=== PATIENT | male | born 1995 | race Caucasian/White ===

== ENCOUNTER 2016-06-26 09:46 | Inpatient (IN) | payer OTHER ==
[2016-06-26] MEDS ORDERED: SUCCINYLCHOLINE CHLORIDE 200 MG/10 ML VIAL ONE (10:01)
[2016-06-26] MEDS ORDERED: LORAZEPAM CARPU-JECT 2 MG/ML DISP.SYRIN ONE (10:04)
[2016-06-26] MEDS ORDERED: ROCURONIUM BROMIDE 50 MG/5 ML VIAL IV ONE (10:04)
[2016-06-26] MEDS ORDERED: morphine CARPU-JECT 10 MG/1 ML DISP.SYRIN IVPUSH ONE (10:04)
[2016-06-26] MEDS ORDERED: LORAZEPAM CARPU-JECT 2 MG/ML DISP.SYRIN IVPUSH ONE (10:04)
[2016-06-26] MEDS ORDERED: SUCCINYLCHOLINE CHLORIDE 200 MG/10 ML VIAL IVPUSH ONE (10:04)
[2016-06-26] MEDS ORDERED: morphine CARPU-JECT 10 MG/1 ML DISP.SYRIN ONE (10:05)
[2016-06-26] MEDS ORDERED: RAPID SEQUENCE INTUBATION KIT NR ONE ×2 (10:05→11:05)
--- NOTE | 2016-06-26 10:24 | PDOC ---
History of Present Illness - General History Source: EMS, Prison Records Exam Limitations: Clinical Condition - History of Present Illness Initial Comments: 06/26/16 10:25 The patient is a 21 year old male with significant past medical history of herpetic encephalitis, profound mental retardation, epilepsy, chronic hypothermia, asthma who presents to the emergency department from [facility] with respiratory distress since this morning. Per EMS, upon arrival patient was sating on high 70s on room air. The patient started to bag him en route to [facility]. Per EMS the patient also had a partial witnessed seizure in the ambulance. The history is limited secondary to patients condition. <Jolanta Gonzalez - Last Filed: 06/26/16 12:51> <Vitaly Mathis - Last Filed: 07/29/16 10:06> - General Stated Complaint: Respiratory Time Seen by Provider: 06/26/16 10:04 Past History <Jolanta Gonzalez - Last Filed: 06/26/16 12:51> - Past Medical History Asthma: Yes GI Disorders: Yes (; DYSPHAGIA) Seizures: Yes (EPILEPSY) - Surgical History Abdominal Surgery: Yes (GT PLACEMENT) - Psycho/Social/Smoking Cessation Hx Anxiety: No Suicidal Ideation: No Smoking Status: No Smoking History: Never smoked Number of Cigarettes Smoked Daily: 0 <Vitaly Mathis - Last Filed: 07/29/16 10:06> - Past Medical History Allergies/Adverse Reactions: Allergies Allergy/AdvReac Type Severity Reaction Status Date / Time No Known Allergies Allergy Verified 12/18/12 10:01 Home Medications: Ambulatory Orders Acyclovir 200 mg PO BID 06/26/16 Albuterol 0.083% Nebulizer Meron [Ventolin 0.083% Nebulizer Soln -] 1 neb NEB QID 06/26/16 Baclofen 10 mg PO BID 06/26/16 Benzoyl Peroxide 5% Gel - 1 applic TP DAILY 06/26/16 Bisacodyl [Biscolax] 10 mg RC DAILY 06/26/16 Budesonide/Formeterol Fumarate [SYMBICORT 160/4.5mcg -] 1 inh PO BID 06/26/16 Clobazam [Onfi -] 10 mg PO DAILY 06/26/16 Clonazepam [KlonoPIN] 0.5 mg GT TID 06/26/16 Diazepam [Diastat Acudial] 10 mg RC DAILY 06/26/16 Fluticasone Prop 0.05% Nasal [Flonase -] 1 - 2 spray NS DAILY 06/26/16 Fructooligosaccharides/Polydex [Fiber-Stat 15 gm/30 ml Liquid] 15 gm PO DAILY Hydrocolloid Dressing [Duoderm] 1 each TP HS PRN 06/26/16 Ipratropium/Albuterol Sulfate [Iprat-Albut 0.5-3(2.5) mg/3 ml] 3 ml IH Q6H 06/26 Lactobacillus Acidophilus [Acidophilus] 1 each PO HS 06/26/16 Magnesium Hydroxide [Milk of Magnesia] 20 ml PO DAILY 06/26/16 Multivitamin [Poly-Vitamin] 1 each GT DAILY 06/26/16 Phenobarbital 16.2 mg PO BID 06/26/16 Ranitidine HCl [Zantac 75] 75 mg PO BID 06/26/16 Review of Systems - Review of Systems Able to Perform ROS?: No (Unable to attain) <Jolanta Gonzalez - Last Filed: 06/26/16 12:51> *Physical Exam - Physical Exam Comments: 06/26/16 10:25 GENERAL: +Responsive to deep painful stimuli, gag reflex intact. Color is dusky. HEAD: No signs of trauma EYES: +Nystagmus. PERRLA, EOMI, sclera anicteric, conjunctiva clear ENT: Auricles normal inspection, hearing grossly normal, nares patent, oropharynx clear without exudates. NECK: Normal ROM, supple, no lymphadenopathy, JVD, or masses LUNGS: +Bilateral crackles. No wheezing. HEART: Regular rate and rhythm, normal S1 and S2, no murmurs, rubs or gallops ABDOMEN: Soft, nontender, normoactive bowel sounds. No masses. +PEG tube in place, no surrounding erythema. EXTREMITIES: +All extremities are contracted. Patient in position. No edema. No clubbing or cyanosis. No cords or erythema. NEUROLOGICAL: Unable to attain. SKIN: Warm, Dry, normal turgor, no rashes or lesions noted. <Jolanta Gonzalez - Last Filed: 06/26/16 12:51> Procedures - Intubation Time of Intubation: 10:00 Intubation Method: orotracheal Blade used: Mac Tube Size (Fr): 6.5 Medications: Morphine, Rocuronium, Succinylcholine Tube position @ lip (cm): 22 Tube position confirmed by: Direct visualization, Chest x-ray, Breath sounds Breath Sounds after Intubation: equal Intubation Complications: no complications Post Intubation Xray: Yes <Jolanta Gonzalez - Last Filed: 06/26/16 12:51> ED Treatment Course - LABORATORY CBC & Chemistry Diagram: 06/26/16 10:13 06/26/16 10:13 <Jolanta Gonzalez - Last Filed: 06/26/16 12:51> - LABORATORY CBC & Chemistry Diagram: 07/08/16 06:45 07/07/16 05:00 - RADIOLOGY Radiology Studies Ordered: Category Date Time Status CHEST X-RAY PORTABLE* [RAD] Stat Radiology 06/26/16 10:11 Taken <Vitaly Mathis - Last Filed: 07/29/16 10:06> Medical Decision Making - Critical Care Time Total Critical Care Time (minutes): 0 - Medical Decision Making 06/26/16 11:09 21 yo M with severe MR from [place] presented to the ED in respiratory distress. Patient seen and examined on arrival. He was sating in mid 80s on o2 bag. Patient required intubation. Case discussed with hospitalists for admission. Awaiting call back from ICU for a bed in the ICU. 06/26/16 12:51 market analysis director at [facility] called ER. She states that the doctors at [facility] know patient well. Once he is stable he will go to [facility]. <Jolanta Gonzalez - Last Filed: 06/26/16 12:51> *DC/Admit/Observation/Transfer - Attestations Scribe Attestion: 06/26/16 10:27 Documentation prepared by Jolanta Gonzalez, acting as medical transcriptionist for Vitaly Mathis DO. <Jolanta Gonzalez - Last Filed: 06/26/16 12:51> - Attestations Physician Attestion: 06/26/16 10:24 I, Dr. Vitaly Mathis, attest that this document has been prepared under my direction and personally reviewed by me in its entirety. I further attest, that it accurately reflects all work, treatment, procedures and medical decision -making performed by me. <Vitaly Mathis - Last Filed: 07/29/16 10:06> Diagnosis at time of Disposition: Respiratory failure Qualifiers: Chronicity: acute Respiratory failure complication: hypoxia Qualified Code(s): J96.01 - Acute respiratory failure with hypoxia - Discharge Dispostion Disposition: HOME Condition at time of disposition: Stable
[2016-06-26 10:30] LABS: BASOPHIL 0.2 % (0-2.0); EOSINOPHIL 1.5 % (0-4.5); MCHC 33.4 g/dl (32.0-35.9); MEAN CELL VOLUME 104.8 fl (80-96); MEAN PLT VOLUME 10.6 fl (7.5-11.1); NEUTROPHILS 65.5 % (42.8-82.8); PLATELET COUNT 202 K/MM3 (134-434); RDW 16.4 % (11.9-15.9); WHITE BLOOD COUNT 11.3 K/mm3 (4.0-10.0)
[2016-06-26 10:53] LABS: ALBUMIN 4.2 g/dl (3.4-5.0); ANION GAP 10 (8-16); BILIRUBIN,TOTAL 0.2 mg/dL (0.2-1.0); CALCIUM 9.8 mg/dL (8.5-10.1); CO2 28 mmol/L (21-32); CREATININE 0.9 mg/dL (0.7-1.3); GLUCOSE,RANDOM 64 mg/dL (74-106); SGOT/AST 98 U/L (15-37); SGPT/ALT 119 U/L (12-78)
[2016-06-26 10:54] LABS: ALBUMIN 4.1 g/dl (3.4-5.0); ALK PHOS 466 U/L (45-117); ANION GAP 12 (8-16); CALCIUM 9.8 mg/dL (8.5-10.1); CO2 28 mmol/L (21-32); CREATININE 0.9 mg/dL (0.7-1.3); GLUCOSE,RANDOM 64 mg/dL (74-106); SGOT/AST 96 U/L (15-37); SGPT/ALT 116 U/L (12-78)
[2016-06-26 10:55] VITALS: BMI 16.3
[2016-06-26 10:55] LABS: ALK PHOS 470 U/L (45-117); BILIRUBIN,TOTAL 0.3 mg/dL (0.2-1.0); TOT PROT 10.8 g/dl (6.4-8.2)
[2016-06-26 10:56] LABS: TOT PROT 10.9 g/dl (6.4-8.2)
[2016-06-26 11:01] LABS: INR 1.14 (0.82-1.09); PROTHROMBIN TIME (PATIENT) 12.6 SEC (9.98-11.88)
--- NOTE | 2016-06-26 12:12 | HP ---
CHIEF COMPLAINT: Hypoxia HISTORY OF PRESENT ILLNESS: This is a 21-year-old male resident of [facility] who was brought in to the ER this morning by EMS because of respiratory distress and hypoxia. EMS found his oxygen saturation to be in the 70s. He was noted to have a partial seizure in the ambulance. He was intubated in the ER. PAST MEDICAL HISTORY Profound mental retardation Epilepsy Asthma Hypothermia Herpes encephalitis PAST SURGICAL HISTORY PEG Allergies No Known Allergies Allergy (Verified 12/18/12 10:01) HOME MEDICATIONS 3 Medication Instructions Recorded Albuterol 0.083% Nebulizer Meron 1 neb NEB QID 06/26/16 [Ventolin 0.083%] Benzoyl Peroxide 5% Gel - 1 applic TP DAILY 06/26/16 Bisacodyl [Biscolax] 10 mg RC DAILY 06/26/16 Clobazam [Onfi -] 10 mg PO DAILY 06/26/16 Clonazepam [KlonoPIN] 0.5 mg GT TID 06/26/16 Diazepam [Diastat Acudial] 10 mg RC DAILY 06/26/16 Fructooligosaccharides/Polydex 15 gm PO DAILY 06/26/16 [Fiber-Stat 15 gm/30 ml Liquid] Hydrocolloid Dressing [Duoderm] 1 each TP HS PRN 06/26/16 Ipratropium/Albuterol Sulfate 3 ml IH Q6H 06/26/16 [Iprat-Albut 0.5-3(2.5) mg/3 ml] Multivitamin [Poly-Vitamin] 1 each GT DAILY 06/26/16 Phenobarbital 16.2 mg PO BID 06/26/16 Social History: Smoking: Never smoked Alcohol: None Drugs: None Recent Travel: No Family History: Unobtainable REVIEW OF SYSTEMS Unable to obtain PHYSICAL EXAMINATION Vital Signs Period Temp Pulse Resp BP Sys/Linares Pulse Ox Last 24 Hr 94.6 F 80 28 90/67 87 GENERAL: Intubated, sedated, in no acute distress. HEAD: Normal with no signs of trauma. EYES: Pupils equal, round and reactive to light, sclerae anicteric, conjunctivae clear. EARS, NOSE, THROAT: Ears normal, nares patent, oropharynx not visualized. Moist mucous membranes. NECK: Normal range of motion, supple without lymphadenopathy, JVD, or masses. LUNGS: Decreased breath sounds. Rhonchi on right. HEART: Regular rate and rhythm, normal S1 and S2 without murmur, rub or gallop. ABDOMEN: Soft, not distended, normoactive bowel sounds. No hepatomegaly or splenomegaly. PEG in place. PEG site clean. MUSCULOSKELETAL: Unable to assess. UPPER EXTREMITIES: Contracted. 2+ pulses, warm, well-perfused. No cyanosis. No clubbing. Cap refill <2 seconds. No peripheral edema. LOWER EXTREMITIES: Contracted. 2+ pulses, warm, well-perfused. No peripheral edema. NEUROLOGICAL: Unable to assess. PSYCHIATRIC: Unable to assess. SKIN: Warm, dry, normal turgor, no rashes. Laboratory Tests 06/26/16 06/26/16 06/26/16 10:13 10:13 10:13 WBC 11.3 H RBC 4.56 Hgb 16.0 D Hct 47.8 D MCV 104.8 H MCHC 33.4 RDW 16.4 H Plt Count 202 MPV 10.6 Neutrophils % 65.5 D Lymphocytes % 27.1 D Monocytes % 5.7 Eosinophils % 1.5 Basophils % 0.2 INR 1.14 Sodium 140 Potassium 4.9 D Chloride 100 Carbon Dioxide 28 Anion Gap 12 BUN 14 D Creatinine 0.9 D Creat Clearance w eGFR > 60 Random Glucose 64 L Lactic Acid Calcium 9.8 Total Bilirubin 0.3 AST 96 H D ALT 116 H D Alkaline Phosphatase 470 H D Total Protein 10.9 H D Albumin 4.1 D 06/26/16 06/26/16 10:13 10:13 WBC RBC Hgb Hct MCV MCHC RDW Plt Count MPV Neutrophils % Lymphocytes % Monocytes % Eosinophils % Basophils % INR Sodium 139 Potassium 4.9 Chloride 101 Carbon Dioxide 28 Anion Gap 10 BUN 14 Creatinine 0.9 Creat Clearance w eGFR > 60 Random Glucose 64 L Lactic Acid 6.742 H* Calcium 9.8 Total Bilirubin 0.2 D AST 98 H ALT 119 H Alkaline Phosphatase 466 H Total Protein 10.8 H Albumin 4.2 Chest x-ray: Increased lung markings. Peribronchial thickening. EKG: Sinus bradycardia with sinus arrhythmia, rate 43. Inferior-posterior infarct. ASSESSMENT/PLAN: This is a 21-year-old man who resides at [facility] and who has a history of profound mental retardation, seizure disorder, asthma, who was sent in to the ER after being found to be hypoxic. He had a seizure in the ambulance. On arrival, he was found to have BP 90/67, temp 94.7, RR 28, O2 sat 87%, and he was intubated. He has WBC 11.3, AST 96, ALT 116, alk phos 470, lactic acid 6.742. He is being admitted for treatment of an emergent condition. 1. Acute on chronic hypoxic respiratory failure - Intubated - Admit to ICU - Maintain vent support - DuoNeb - Pulmonary/critical care consult 2. Possible severe sepsis secondary to aspiration pneumonia - Has leukocytosis, lactic acidosis, hypothermia, hypotension, hepatic dysfunction - Start Zosyn - Repeat CXR in AM 3. s/p seizure 4. Lactic acidosis - Secondary to seizure and possibly sepsis - IV fluid - Recheck lactic acid 5. Hepatic transaminitis and elevated alkaline phosphatase - Start Zosyn - [facility] 6. Epilepsy - Continue Phenobarbital, Klonopin 7. Asthma 8. Profound mental retardation 9. DVT prophylaxis - Start Lovenox 10. Stress ulcer prophylaxis - Start Protonix Problem List - Problem (1) Acute and chronic respiratory failure with hypoxia Code(s): J96.21 - ACUTE AND CHRONIC RESPIRATORY FAILURE WITH HYPOXIA (2) Elevated alkaline phosphatase level Code(s): R74.8 - ABNORMAL LEVELS OF OTHER SERUM ENZYMES (3) Hypotension Code(s): I95.9 - HYPOTENSION, UNSPECIFIED (4) Hypothermia Code(s): T68.XXXA - HYPOTHERMIA, INITIAL ENCOUNTER (5) Lactic acidosis Code(s): E87.2 - ACIDOSIS (6) Seizure Code(s): R56.9 - UNSPECIFIED CONVULSIONS (7) Transaminitis Code(s): R74.0 - NONSPEC ELEV OF LEVELS OF TRANSAMNS & LACTIC ACID DEHYDRGNSE (8) Asthma Code(s): J45.909 - UNSPECIFIED ASTHMA, UNCOMPLICATED (9) Epilepsy Code(s): G40.909 - EPILEPSY, UNSP, NOT INTRACTABLE, WITHOUT STATUS EPILEPTICUS (10) Profound mental retardation Code(s): F73 - PROFOUND INTELLECTUAL DISABILITIES (11) Aspiration pneumonia Code(s): J69.0 - PNEUMONITIS DUE TO INHALATION OF FOOD AND VOMIT (12) Severe sepsis Code(s): A41.9 - SEPSIS, UNSPECIFIED ORGANISM R65.20 - SEVERE SEPSIS WITHOUT SEPTIC SHOCK Visit type - Emergency Visit Emergency Visit: Yes ED Registration Date: 06/26/16 Care time: The patient presented to the Emergency Department on the above date and was hospitalized for further evaluation of their emergent condition. - New Patient This patient is new to me today: Yes Date on this admission: 06/26/16 - Critical Care Critical Care patient: Yes Total Critical Care Time (in minutes): 45 Critical Care Statement: The care of this patient involved high complexity decision making to prevent further life threatening deterioration of the patient 's condition and/or to evalute & treat vital organ system(s) failure or risk of failure.
[2016-06-26] MEDS ORDERED: HYDROCOLLOID DRESSING TP PRN (12:17)
[2016-06-26] MEDS ORDERED: ONDANSETRON 4 MG/2 ML VIAL IVPB PRN (12:21)
[2016-06-26] MEDS ORDERED: ACETAMINOPHEN 650 MG SUPP.RECT PR PRN (12:21)
[2016-06-26] MEDS: SODIUM CHLORIDE 1,000 ML IV SCH (13:12)
[2016-06-26] MEDS: PIPERACILLIN/TAZOB 4.5 GM/100 ML PRE-DOCKED IVPB ONE ×2 (13:12→15:26)
--- NOTE | 2016-06-26 13:31 | CONSULT ---
Consultation: REQUESTING PROVIDER: Dr. Castanon CONSULT REQUEST: We have been asked to medically evaluate this patient for critical care. HISTORY OF PRESENT ILLNESS: 21 yo M [place] resident with history of herpetic encephalitis, profound mental retardation, epilepsy, chronic hypothermia, asthma admitted to the ICU for acute respiratory distress. Patient is legally blind, non-verbal, does not follow command, no gag reflex at baseline. Per nurse at [place], patient is on 5L ventimask at [place]. Today, he was noted to have O2 sat in low 70s this morning and marked difficulty in breathing. He also had a partial seizure en route to ED and he's intubated upon arrival to the ED. The nurse at [place] denied that pt had fever, chills, chest pain, sob, n/v, urinary and bowel sx. REVIEW OF SYSTEMS: unable to assess due to mental status CONSTITUTIONAL: Absent: fever, chills, diaphoresis, generalized weakness, malaise, loss of appetite, weight change HEENT: Absent: rhinorrhea, nasal congestion, throat pain, throat swelling, difficulty swallowing, mouth swelling, ear pain, eye pain, visual changes CARDIOVASCULAR: Absent: chest pain, syncope, palpitations, irregular heart rate, lightheadedness , peripheral edema RESPIRATORY: Absent: cough, shortness of breath, dyspnea with exertion, orthopnea, wheezing, stridor, hemoptysis GASTROINTESTINAL: Absent: abdominal pain, abdominal distension, nausea, vomiting, diarrhea, constipation, melena, hematochezia GENITOURINARY: Absent: dysuria, frequency, urgency, hesitancy, hematuria, flank pain, genital pain MUSCULOSKELETAL: Absent: myalgia, arthralgia, joint swelling, back pain, neck pain SKIN: Absent: rash, itching, pallor HEMATOLOGIC/IMMUNOLOGIC: Absent: easy bleeding, easy bruising, lymphadenopathy, frequent infections ENDOCRINE: Absent: unexplained weight gain, unexplained weight loss, heat intolerance, cold intolerance NEUROLOGIC: Absent: headache, focal weakness or paresthesias, dizziness, unsteady gait, seizure, mental status changes, bladder or bowel incontinence PSYCHIATRIC: Absent: anxiety, depression, suicidal or homicidal ideation, hallucinations. PHYSICAL EXAMINATION Vital Signs - 24 hr 06/26/16 13:13 Pulse Rate [ 61 Apical] Blood Pressure 116/65 [Left Arm] O2 Sat by Pulse 99 Oximetry (%) GENERAL: non-verbal, blind, severely mentally retarded, does not follow command and intubated. HEAD: Normal with no signs of trauma. EYES: Pupils equal, non-reactive, rotatory nystagmus LUNGS: distant breath sounds, no wheezing or rhonchi HEART: RRR without murmur, gallop, rub ABDOMEN: Soft, nontender, not distended, normoactive bowel sounds, no guarding, no rebound, no masses. +PEG tube EXTREMITIES: contracted in position. No peripheral edema. NEUROLOGICAL: Cranial nerves II-XII intact. Normal speech. Normal gait. PSYCHIATRIC: Cooperative. Good eye contact. Appropriate mood and affect. SKIN: Warm, dry, normal turgor, no rashes or lesions noted. Laboratory Results - last 24 hr 06/26/16 13:00 Lactic Acid 1.389 Active Medications Generic Name Dose Route Start Last Admin Trade Name Freq PRN Reason Stop Dose Admin Acetaminophen 650 mg 06/26/16 12:21 Tylenol Suppository - [place] Q4H PRN FEVER OR PAIN Albuterol/Ipratropium 1 amp 06/26/16 18:00 Duoneb - NEB QIDR JORGE Bisacodyl 10 mg 06/27/16 10:00 Dulcolax Suppository - RC DAILY [facility] Chlorhexidine Gluconate 1 applic 06/26/16 22:00 Hibiclens For Decolonization - TP HS JORGE Clobazam 10 mg 06/27/16 10:00 Onfi - PO DAILY JORGE Clonazepam 0.5 mg 06/26/16 14:00 Klonopin - GT TID JORGE Diazepam 10 mg 06/27/16 10:00 Diastat Rectal Gel - RC DAILY [facility] Enoxaparin Sodium 40 mg 06/27/16 10:00 Lovenox - SQ DAILY [facility] Propofol 100 mls @ 1.257 mls/hr 06/26/16 12:30 Diprivan - IV TITR JORGE Protocol 5 MCG/KG/MIN Sodium Chloride 1,000 mls @ 125 mls/hr 06/26/16 12:30 06/26/16 13:12 Normal Saline - IV 125 mls/hr ASDIR JORGE Administration Mupirocin 1 applic 06/26/16 22:00 Bactroban Ointment (For Decolonization) - NS 07/01/16 21:59 BID [facility] Ondansetron HCl 4 mg 06/26/16 12:21 Zofran Injection IVPB Q6H PRN NAUSEA Phenobarbital 15 mg 06/26/16 22:00 Phenobarbital - PO BID JORGE Imaging CXR: Increased lung markings may reflect CHF versus underlying chronic lung disease. There is peribronchial thickening again noted which may be chronic ASSESSMENT/PLAN: 21 yo M [place] resident with history of herpetic encephalitis, profound mental retardation, epilepsy, chronic hypothermia, asthma admitted to the ICU for acute respiratory failure. Neuro - baseline: non-verbal, legally blind, no gag reflex - severely mentally retarded - cont. konopin, clobazam, phenobarbital - hyothermic * cont. ahsan cruz ID - elevated WBC at 11 - on zosyn for aspiration PNA - lactate normalized - f/u cultures - daily CBC Pulm - acute hypoxic respiratory failure - cont. mechanical ventilation with current settings * maintain O2 sat. > 90% * will attempt SBT in due course -daily CXR Cardio - bradycardic - f/u on echo GI - PEG tube intact Renal/ - stable - cont. hydration NS @125ml/hr Prophylaxis - DVT: lovenox - GI: protonix Nutrition - tube feed if unable to extubate Dispo: cont. to monitor in ICU Visit type - Emergency Visit Emergency Visit: No - New Patient This patient is new to me today: Yes Date on this admission: 06/26/16 - Critical Care Critical Care patient: Yes Total Critical Care Time (in minutes): 35 Critical Care Statement: The care of this patient involved high complexity decision making to prevent further life threatening deterioration of the patient 's condition and/or to evalute & treat vital organ system(s) failure or risk of failure.
--- NOTE | 2016-06-26 14:27 | PN ---
Teaching Attending Note Name of Resident: Ramon Dia ATTENDING PHYSICIAN STATEMENT I saw and evaluated the patient. I reviewed the resident's note and discussed the case with the resident. I agree with the resident's findings and plan as documented. SUBJECTIVE: Pt seen and examined in the ICU. Briefly, 21yo male with h/o profound mental retardation, functional quadriplegia, h/o herpes encephalitis, seizure disorder , chronic hypothermia who was sent from [place] with respiratory distress. Pt unable to provide further history at this time, found by EMS to be hypoxic to 70s and had a partial seizure en route to the ER. Intubated in the ER, transferred to the ICU for further monitoring. OBJECTIVE: Last Vital Signs Temp Pulse Resp BP Pulse Ox 94.6 F L 61 12 116/65 99 06/26/16 09:46 06/26/16 13:13 06/26/16 13:05 06/26/16 13:13 06/26/16 13:13 Intake & Output 06/23/16 06/24/16 06/25/16 06/26/16 23:59 23:59 23:59 23:59 Output Total 400 Balance -400 Weight 92 lb 6.4 oz Gen: intubated, sedated Heart: RRR Lung: decreased breath sounds at the bases Abd: soft, notender Ext: distal edema, contracted CBC, BMP 06/26/16 10:13 06/26/16 10:13 Active Medications Acetaminophen (Tylenol Suppository -) 650 mg SD Q4H PRN PRN Reason: FEVER OR PAIN Albuterol/Ipratropium (Duoneb -) 1 amp NEB QIDR JORGE Bisacodyl (Dulcolax Suppository -) 10 mg RC DAILY [facility] Chlorhexidine Gluconate (Hibiclens For Decolonization -) 1 applic TP HS JORGE Clobazam (Onfi -) 10 mg PO DAILY JORGE Clonazepam (Klonopin -) 0.5 mg GT TID JORGE Diazepam (Diastat Rectal Gel -) 10 mg RC DAILY JORGE Enoxaparin Sodium (Lovenox -) 40 mg SQ DAILY JORGE Propofol (Diprivan -) 100 mls @ 1.257 mls/hr IV TITR JORGE; 5 MCG/KG/MIN PRN Reason: Protocol Sodium Chloride (Normal Saline -) 1,000 mls @ 125 mls/hr IV ASDIR JORGE Last Admin: 06/26/16 13:12 Dose: 125 mls/hr Mupirocin (Bactroban Ointment (For Decolonization) -) 1 applic NS BID [facility] Stop: 07/01/16 21:59 Ondansetron HCl (Zofran Injection) 4 mg IVPB Q6H PRN PRN Reason: NAUSEA Phenobarbital (Phenobarbital -) 15 mg PO BID [facility] ASSESSMENT AND PLAN: Acute Hypoxic Respiratory Failure r/o Pneumonia/Sepsis Lactic Acidosis r/o Acute Pulmonary Edema Elevated LFTs Mental Retardation Seizure Disorder Functional Quadriplegia - will treat empirically for pneumonia to cover aspiration - send cultures, UA, urine culture - echocardiogram - IVF for now - hold off on lasix until echo - check abdominal ultrasound - LE dopplers - minimize sedation so pt can participate in weaning trials - start spontaneous breathing trials as tolerated if oxygen requirements improve - enteral feeds if unable to extubate - DVT/GI prophylaxis Thank you for this consult Jah Schmid MD
[2016-06-26] MEDS: PROPOFOL 100 ML IV SCH (15:25)
[2016-06-26] MEDS: clonazePAM 0.5 MG TABLET GT SCH ×2 (15:59→21:51)
--- NOTE | 2016-06-26 16:00 | EKG ---
Test Reason : Blood Pressure : / mmHG Vent. Rate : 043 BPM Atrial Rate : 043 BPM P-R Int : 178 ms QRS Dur : 116 ms QT Int : 436 ms P-R-T Axes : 031 042 010 degrees QTc Int : 368 ms MARKED SINUS BRADYCARDIA WITH SINUS ARRHYTHMIA INFERIOR-POSTERIOR INFARCT (CITED ON OR BEFORE 26-JUN-2016) ABNORMAL ECG WHEN COMPARED WITH ECG OF 01-MAY-2013 17:47, VENT. RATE HAS DECREASED BY 58 BPM QRS AXIS SHIFTED LEFT QT HAS SHORTENED Confirmed by CLEVE WALDROP MD ([id number]) on 06/26/2016 3:59:52 PM Referred By: LENORE PEREIRA Confirmed By:CLEVE WALDROP MD
[2016-06-26] MEDS ORDERED: PIPERACILLIN/TAZOB 3.375 GM 50 ML IVPB ONE (16:36)
[2016-06-26 16:46] LABS: ARTERIAL BLD GAS O2 SATURATION 99.6 % (90-98.9); ARTERIAL BLOOD GAS BASE EXCESS 3.8 meq/l (-2-2); ARTERIAL BLOOD GAS HCO3 26.6 meq/L (22-26)
[2016-06-26 16:47] LABS: ALLENS TEST POSITIVE; ART PUNCT SITE RIGHT RADIAL; LPM/O2% 100%; MECH. VENT. ESPRIT; PT. ON O2? YES; TYPE OF O2 OT; VENT RATE 12
[2016-06-26 16:48] LABS: ARTERIAL BLOOD GAS pH 7.49 (7.35-7.45)
[2016-06-26 16:49] LABS: METHEMOGLOBIN 1.4 % (0.4-1.5)
[2016-06-26 16:52] LABS: VT/PRESS 350
[2016-06-26] MEDS ORDERED: PANTOPRAZOLE SODIUM 40 MG in SODIUM CHLORIDE 100 ML IVPB SCH (17:00)
[2016-06-26] MEDS: PIPERACILLIN/TAZOB 3.375 GM 50 ML IVPB SCH (17:12)
[2016-06-26] MEDS: ALBUTEROL SO4 2.5/IPRATROPIUM 0.5 INH SOL 3 ML VIAL.NEB. NEB SCH ×2 (17:30→23:40)
[2016-06-26 17:58] LABS: URINE APPEARANCE CLEAR; URINE BILIRUBIN NEGATIVE (NEGATIVE); URINE BLOOD NEGATIVE (NEGATIVE); URINE COLOR YELLOW; URINE GLUCOSE (UA) NEGATIVE (NEGATIVE); URINE KETONE NEGATIVE (NEGATIVE); URINE LEUK ESTERASE NEGATIVE (NEGATIVE); URINE NITRITE NEGATIVE (NEGATIVE); URINE UROBILINOGEN NEGATIVE E.U./dl (0.2-1.0)
[2016-06-26 18:14] LABS: URINE PROTEIN 2+ (NEGATIVE)
[2016-06-26] MEDS: PANTOPRAZOLE SODIUM 40 MG/100 ML PRE-DOCKED IVPB SCH (18:53)
[2016-06-26] MEDS: PHENobarbital 15 MG TABLET PO SCH (21:51)
[2016-06-26] MEDS: MUPIROCIN 2% TOPICAL OINTMENT FOR DECOLONIZATION NS SCH (21:51)
[2016-06-26] MEDS: CHLORHEXIDINE GLUCONATE 4% CLEANSER FOR DECOLONIZATION TP SCH (22:00)
[2016-06-27] MEDS ORDERED: diazePAM ACUDIAL 5-7.5-10 MG 1 EACH KIT RC PRN (01:29)
[2016-06-27] MEDS: PIPERACILLIN/TAZOB 3.375 GM 50 ML IVPB SCH ×3 (02:00→18:16)
[2016-06-27] MEDS: clonazePAM 0.5 MG TABLET GT SCH ×3 (06:31→22:37)
[2016-06-27] MEDS: SODIUM CHLORIDE 1,000 ML IV SCH ×2 (06:38→15:44)
[2016-06-27] MEDS: ALBUTEROL SO4 2.5/IPRATROPIUM 0.5 INH SOL 3 ML VIAL.NEB. NEB SCH ×3 (06:45→18:46)
[2016-06-27 06:48] LABS: ALBUMIN 2.9 g/dl (3.4-5.0); ANION GAP 10 (8-16); CALCIUM 8.6 mg/dL (8.5-10.1); CO2 22 mmol/L (21-32); GLUCOSE,RANDOM 96 mg/dL (74-106)
[2016-06-27 06:53] LABS: ALK PHOS 291 U/L (45-117); BILIRUBIN,TOTAL 0.4 mg/dL (0.2-1.0); CREATININE 0.7 mg/dL (0.7-1.3); SGOT/AST 43 U/L (15-37); SGPT/ALT 64 U/L (12-78); TOT PROT 7.5 g/dl (6.4-8.2)
[2016-06-27 06:56] LABS: BASOPHIL 0.2 % (0-2.0); EOSINOPHIL 1.3 % (0-4.5); MCH 35.1 pg (25.7-33.7); MCHC 34.2 g/dl (32.0-35.9); MEAN CELL VOLUME 102.5 fl (80-96); MEAN PLT VOLUME 10.6 fl (7.5-11.1); NEUTROPHILS 76.2 % (42.8-82.8); PLATELET COUNT 183 K/MM3 (134-434); RDW 16.4 % (11.9-15.9); WHITE BLOOD COUNT 7.5 K/mm3 (4.0-10.0)
[2016-06-27 07:38] LABS: ALLENS TEST POSITIVE; ART PUNCT SITE LEFT RADIAL; ARTERIAL BLD GAS O2 SATURATION 99.6 % (90-98.9); ARTERIAL BLOOD GAS BASE EXCESS -3.7 meq/l (-2-2); ARTERIAL BLOOD GAS HCO3 20.6 meq/L (22-26); LPM/O2% 65; PT. ON O2? YES
[2016-06-27 07:39] LABS: ARTERIAL BLOOD GAS pH 7.37 (7.35-7.45); MECH. VENT. YES; TYPE OF O2 VENT; VENT RATE 12; VT/PRESS 350
[2016-06-27] MEDS ORDERED: PT OWN MED DRAWER 7, Y5N ONE ×2 (09:34→22:25)
[2016-06-27] MEDS: PHENobarbital 15 MG TABLET PO SCH ×2 (09:37→22:37)
[2016-06-27] MEDS: ENOXAPARIN NA (PORCINE) 40 MG/0.4 ML DISP.SYRIN SQ SCH (09:37)
[2016-06-27] MEDS: cloBAZam 10 MG TABLET PO SCH (09:37)
[2016-06-27] MEDS: BISACODYL 10 MG SUPP.RECT RC SCH (09:37)
[2016-06-27] MEDS: PANTOPRAZOLE SODIUM 40 MG/100 ML PRE-DOCKED IVPB SCH (09:37)
[2016-06-27] MEDS: MULTIVITAMIN GT SCH (09:38)
[2016-06-27] MEDS: [UNRECOGNIZED DRUG - OTHER] GT SCH (09:38)
--- NOTE | 2016-06-27 09:50 | PN ---
Physical Exam: SUBJECTIVE: Patient seen and examined at beside, nonverbal at baseline on ventilator on VCV-AC mode TV 350, RR 12, FiO2 40%, PEEP 5, with an SPO2 96%. As per nurse, attempted CPAP this morning, unable to tolerate. Placed back on VCV-AC mode, in no acute respiratory distress. Current Medications Generic Name Dose Route Start Last Admin Trade Name Freq PRN Reason Stop Dose Admin Acetaminophen 650 mg 06/26/16 12:21 Tylenol Suppository - [place] Q4H PRN FEVER OR PAIN Albuterol/Ipratropium 1 amp 06/26/16 18:00 06/27/16 06:45 Duoneb - NEB 1 amp QIDR JORGE Administration Bisacodyl 10 mg 06/27/16 10:00 06/27/16 09:37 Dulcolax Suppository - RC 10 mg DAILY JORGE Administration Chlorhexidine Gluconate 1 applic 06/26/16 22:00 06/26/16 22:00 Hibiclens For Decolonization - TP 1 applic HS JORGE Administration Clobazam 10 mg 06/27/16 10:00 06/27/16 09:37 Onfi - PO 10 mg DAILY JORGE Administration Clonazepam 0.5 mg 06/26/16 14:00 06/27/16 06:31 Klonopin - GT 0.5 mg TID JORGE Administration Diazepam 10 mg 06/27/16 01:29 Diastat Rectal Gel - RC DAILY PRN seizure Enoxaparin Sodium 40 mg 06/27/16 10:00 06/27/16 09:37 Lovenox - SQ 40 mg DAILY JORGE Administration Propofol 100 mls @ 1.257 mls/hr 06/26/16 12:30 06/26/16 15:25 Diprivan - IV Not Given TITR JORGE Protocol 5 MCG/KG/MIN Sodium Chloride 1,000 mls @ 125 mls/hr 06/26/16 12:30 06/27/16 06:38 Normal Saline - IV 125 mls/hr ASDIR JORGE Administration Piperacillin Sod/Tazobactam Sod 50 mls @ 100 mls/hr 06/26/16 18:00 06/27/16 09: 37 Zosyn 3.375gm Ivpb (Pre-Docked) IVPB 100 mls/hr Q8H-IV JORGE Administration Protocol Mupirocin 1 applic 06/26/16 22:00 02/17/17 09:55 Bactroban Ointment (For Decolonization) - NS 07/01/16 21:59 1 applic BID JORGE Administration Ondansetron HCl 4 mg 06/26/16 12:21 Zofran Injection IVPB Q6H PRN NAUSEA Pantoprazole Sodium 40 mg 06/26/16 17:15 06/27/16 09:37 Protonix 40mg Ivpb (Pre-Docked) IVPB 40 mg DAILY JORGE Administration Phenobarbital 15 mg 06/26/16 22:00 06/27/16 09:37 Phenobarbital - PO 15 mg BID JORGE Administration OBJECTIVE: Vital Signs Period Temp Pulse Resp BP Sys/Linares Pulse Ox Last 24 Hr 95 F-98.1 F 40-77 12-18 93-121/42-77 97-99 GENERAL: The patient is awake, opens eyes, smiles to verbal stimuli, nonverbal and intubated HEAD: Normal with no signs of trauma. LUNGS: Breath sounds equal, clear to auscultation bilaterally, no wheezes, no crackles. HEART: Bradycardic, S1, S2 without murmur, rub or gallop. ABDOMEN: Soft, nontender, nondistended, normoactive bowel sounds. PEG tube in place. EXTREMITIES: Contracted. 2+ pulses, warm, well-perfused, localized edema to left dosal foot, IV in place. NEUROLOGICAL: nonverbal, unable to follow commands 2/2 severe MR SKIN: Warm, dry, capillary refill <3 seconds, no rashes or lesions noted. CBCD WBC 7.5 K/mm3 (4.0-10.0) D 06/27/16 05:35 RBC 3.49 M/mm3 (4.00-5.60) L D 06/27/16 05:35 Hgb 12.2 GM/dL (11.7-16.9) D 06/27/16 05:35 Hct 35.8 % (35.4-49) D 06/27/16 05:35 MCV 102.5 fl (80-96) H 06/27/16 05:35 MCHC 34.2 g/dl (32.0-35.9) 06/27/16 05:35 RDW 16.4 % (11.9-15.9) H 06/27/16 05:35 Plt Count 183 K/MM3 (134-434) 06/27/16 05:35 MPV 10.6 fl (7.5-11.1) 06/27/16 05:35 CMP Sodium 143 mmol/L (136-145) 06/27/16 05:35 Potassium 4.0 mmol/L (3.5-5.1) 06/27/16 05:35 Chloride 111 mmol/L (98-107) H 06/27/16 05:35 Carbon Dioxide 22 mmol/L (21-32) D 06/27/16 05:35 Anion Gap 10 (8-16) 06/27/16 05:35 BUN 11 mg/dL (7-18) D 06/27/16 05:35 Creatinine 0.7 mg/dL (0.7-1.3) D 06/27/16 05:35 Creat Clearance w eGFR > 60 (>60) 06/27/16 05:35 Random Glucose 96 mg/dL (74-106) D 06/27/16 05:35 Calcium 8.6 mg/dL (8.5-10.1) 06/27/16 05:35 Total Bilirubin 0.4 mg/dL (0.2-1.0) D 06/27/16 05:35 AST 43 U/L (15-37) H D 06/27/16 05:35 ALT 64 U/L (12-78) D 06/27/16 05:35 Alkaline Phosphatase 291 U/L (45-117) H D 06/27/16 05:35 Total Protein 7.5 g/dl (6.4-8.2) D 06/27/16 05:35 Albumin 2.9 g/dl (3.4-5.0) L D 06/27/16 05:35 Laboratory Tests 06/26/16 06/27/16 16:45 07:20 Puncture Site Right radial Left radial ABG pH 7.49 H 7.37 ABG pCO2 at Pt Temp 35.3 36.7 ABG pO2 at Pt Temp 320.0 H* 311.0 H* ABG HCO3 26.6 H 20.6 L ABG O2 Sat (Measured) 99.6 H* 99.6 H* ABG O2 Content 19.2 19.2 Microbiology 06/26/16 10:00 Blood - Peripheral Venous Blood Culture - Preliminary NO GROWTH OBTAINED AFTER 24 HOURS, INCUBATION TO CONTINUE FOR 4 DAYS. 06/26/16 10:00 Blood - Peripheral Venous Blood Culture - Preliminary NO GROWTH OBTAINED AFTER 24 HOURS, INCUBATION TO CONTINUE FOR 4 DAYS. 06/27/16 10:00 Nasopharyngeal Swab Influenza Types A,B Antigen (VANCE) - Final 06/27/16 10:00 Nasopharyngeal Swab - Final ASSESSMENT: This is a 21 year old male with past medical history of mental retardation, functional quadriplegia, seizure disorder, asthma, chronic hypothermia (baseline 94, goal 95 F as per [facility]), h/o herpes encephalopathy, who was brought to the ED with hypoxia and respiratory distress, and was intubated on arrival. PLAN: Respiratory: Acute hypoxic respiratory failure - Intubated on VCV-AC mode TV 350, RR 12, FiO2 40%, PEEP 5, with an SPO2 96%. - CPAP trial -unable to tolerate, continue SBT daily - CXR - no evidence of pneumothorax or airspace opacities - Influenza Types A, B antigen - Negative. - Maintain SPO2 > 90% - Repeat ABG - Duonebs for history of asthma, PRN for wheezing. - Appreciate critical care consult ID: Severe sepsis d/t possible pneumonia - CXR - no evidence of pneumothorax or airspace opacities - Lactate 6.742->1.389 improved with IVF - WBC count normalized 11.3->7.5 - Follow up on pending urine cultures and urine legionella antigen - Blood cultures negative. - Continue Zosyn q8 hours x 7 days (on day 2) for possible aspiration PNA Hepatic trasaminitis - Elevated LFT: AST 34, Alk Phos 291 (trending down) - Abdominal ultrasound - heterogenous echotexture of liver, without discrete mass seen. - Continue to trend Cardiac: Bradycardia - EKG: sinus bradycardic with sinus arrhythmia, decreased rate comparied to last EKG 04/2013. - Telemetry monitoring - Echo ordered results pending Neuro: Hypothermia - baseline 94 F, goal 95 F as per [facility] - ahsan cruz if temperature < 94F Mental Retardation - nonverbal, responsive to voice Seizure Disorder - Continue clonazepam, clobazam, phenobarbital Functional Quadriplegia - Contracted to all four extremities - Turn and position q2 hours, pressure ulcer prophylaxis GI: - PEG tube intact - Start feeds - IVF 125cc/hour of NS - Glucose monitoring Neurovascular: leg swelling - Lower extremity ultrasound - no evidence of DVT Prophylaxis - DVT prophylaxis - lovenox 40mg daily - Stress ulcer px - protonix Dispo: - Requires continued ICU care CODE STATUS: FULL CODE Problem List - Problems (1) Elevated alkaline phosphatase level Code(s): R74.8 - ABNORMAL LEVELS OF OTHER SERUM ENZYMES (2) Hypotension Code(s): I95.9 - HYPOTENSION, UNSPECIFIED (3) Lactic acidosis Code(s): E87.2 - ACIDOSIS (4) Seizure Code(s): R56.9 - UNSPECIFIED CONVULSIONS (5) Transaminitis Code(s): R74.0 - NONSPEC ELEV OF LEVELS OF TRANSAMNS & LACTIC ACID DEHYDRGNSE (6) Asthma Code(s): J45.909 - UNSPECIFIED ASTHMA, UNCOMPLICATED (7) Epilepsy Code(s): G40.909 - EPILEPSY, UNSP, NOT INTRACTABLE, WITHOUT STATUS EPILEPTICUS (8) Profound mental retardation Code(s): F73 - PROFOUND INTELLECTUAL DISABILITIES (9) Severe sepsis Code(s): A41.9 - SEPSIS, UNSPECIFIED ORGANISM R65.20 - SEVERE SEPSIS WITHOUT SEPTIC SHOCK Visit type - Emergency Visit Emergency Visit: Yes ED Registration Date: 06/26/16 Care time: The patient presented to the Emergency Department on the above date and was hospitalized for further evaluation of their emergent condition. - New Patient This patient is new to me today: Yes Date on this admission: 06/27/16 - Critical Care Critical Care patient: Yes Total Critical Care Time (in minutes): 45 Critical Care Statement: The care of this patient involved high complexity decision making to prevent further life threatening deterioration of the patient 's condition and/or to evalute & treat vital organ system(s) failure or risk of failure.
[2016-06-27] MEDS: MUPIROCIN 2% TOPICAL OINTMENT FOR DECOLONIZATION NS SCH ×2 (09:55→22:38)
[2016-06-27] MEDS ORDERED: diazePAM ACUDIAL 5-7.5-10 MG 1 EACH KIT RC SCH (10:00)
[2016-06-27] MEDS ORDERED: [UNRECOGNIZED DRUG - MIXTURE] PO SCH (10:00)
--- NOTE | 2016-06-27 12:21 | PN ---
Teaching Attending Note Name of Resident: Ramon Dia ATTENDING PHYSICIAN STATEMENT I saw and evaluated the patient. I reviewed the resident's note and discussed the case with the resident. I agree with the resident's findings and plan as documented. SUBJECTIVE: Patient seen and examined in the ICU. Remains intubated on AC mode of vent. (+ ) oral secretions. No pressors. CXR: Severely rotated / left lung obscured / clear Right Intake & Output 06/24/16 06/25/16 06/26/16 06/27/16 23:59 23:59 23:59 23:59 Intake Total 1620 1050 Output Total 1000 300 Balance 620 750 Weight 93 lb 11.143 oz 94 lb 9.253 oz Last Vital Signs Temp Pulse Resp BP Pulse Ox 97.4 F L 110 H 22 97/43 97 06/27/16 10:00 06/27/16 10:00 06/27/16 10:00 06/27/16 10:00 06/26/16 20:55 Active Medications Acetaminophen (Tylenol Suppository -) 650 mg [place] Q4H PRN PRN Reason: FEVER OR PAIN Albuterol/Ipratropium (Duoneb -) 1 amp NEB QIDR [facility] Last Admin: 06/27/16 11:38 Dose: 1 amp Bisacodyl (Dulcolax Suppository -) 10 mg RC DAILY [facility] Last Admin: 06/27/16 09:37 Dose: 10 mg Chlorhexidine Gluconate (Hibiclens For Decolonization -) 1 applic TP HS [facility] Last Admin: 06/26/16 22:00 Dose: 1 applic Clobazam (Onfi -) 10 mg PO DAILY [facility] Last Admin: 06/27/16 09:37 Dose: 10 mg Clonazepam (Klonopin -) 0.5 mg GT TID [facility] Last Admin: 06/27/16 06:31 Dose: 0.5 mg Diazepam (Diastat Rectal Gel -) 10 mg RC DAILY PRN PRN Reason: seizure Enoxaparin Sodium (Lovenox -) 40 mg SQ DAILY [facility] Last Admin: 06/27/16 09:37 Dose: 40 mg Propofol (Diprivan -) 100 mls @ 1.257 mls/hr IV TITR JORGE; 5 MCG/KG/MIN PRN Reason: Protocol Last Admin: 06/26/16 15:25 Dose: Not Given Sodium Chloride (Normal Saline -) 1,000 mls @ 125 mls/hr IV ASDIR [facility] Last Admin: 06/27/16 06:38 Dose: 125 mls/hr Piperacillin Sod/Tazobactam Sod (Zosyn 3.375gm Ivpb (Pre-Docked)) 50 mls @ 100 mls/hr IVPB Q8H-IV JORGE PRN Reason: Protocol Last Admin: 06/27/16 09:37 Dose: 100 mls/hr Mupirocin (Bactroban Ointment (For Decolonization) -) 1 applic NS BID [facility] Stop: 07/01/16 21:59 Last Admin: 06/27/16 09:55 Dose: 1 applic Ondansetron HCl (Zofran Injection) 4 mg IVPB Q6H PRN PRN Reason: NAUSEA Pantoprazole Sodium (Protonix 40mg Ivpb (Pre-Docked)) 40 mg IVPB DAILY [facility] Last Admin: 06/27/16 09:37 Dose: 40 mg Phenobarbital (Phenobarbital -) 15 mg PO BID [facility] Last Admin: 06/27/16 09:37 Dose: 15 mg Gen: intubated, sedated Heart: RRR Lung: decreased breath sounds at the bases Abd: soft, notender Ext: distal edema, contracted Laboratory Results - last 24 hr 06/26/16 06/26/16 06/26/16 13:00 16:45 16:45 WBC RBC Hgb Hct MCV MCHC RDW Plt Count MPV Neutrophils % Lymphocytes % Monocytes % Eosinophils % Basophils % Puncture Site Right radial ABG pH 7.49 H ABG pCO2 at Pt Temp 35.3 ABG pO2 at Pt Temp 320.0 H* ABG HCO3 26.6 H ABG O2 Sat (Measured) 99.6 H* ABG O2 Content 19.2 ABG Base Excess 3.8 H Kaushal Test Positive Carboxyhemoglobin 0.6 Methemoglobin 1.4 O2 Delivery Device Ot Oxygen Flow Rate 100% Vent Mode Ac Vent Rate 12 Mechanical Rate Esprit PEEP 5.0 Pressure Support Vent 350 Sodium Potassium Chloride Carbon Dioxide Anion Gap BUN Creatinine Creat Clearance w eGFR Random Glucose Lactic Acid 1.389 Calcium Total Bilirubin AST ALT Alkaline Phosphatase Total Protein Albumin Urine Color Urine Appearance Urine pH Ur Specific [place] Urine Protein Urine Glucose (UA) Urine Ketones Urine Blood Urine Nitrite Urine Bilirubin Urine Urobilinogen Ur Leukocyte Esterase 06/26/16 06/27/16 06/27/16 17:00 05:35 05:35 WBC 7.5 D RBC 3.49 L D Hgb 12.2 D Hct 35.8 D MCV 102.5 H MCHC 34.2 RDW 16.4 H Plt Count 183 MPV 10.6 Neutrophils % 76.2 Lymphocytes % 15.3 D Monocytes % 7.0 Eosinophils % 1.3 Basophils % 0.2 Puncture Site ABG pH ABG pCO2 at Pt Temp ABG pO2 at Pt Temp ABG HCO3 ABG O2 Sat (Measured) ABG O2 Content ABG Base Excess Kaushal Test Carboxyhemoglobin Methemoglobin O2 Delivery Device Oxygen Flow Rate Vent Mode Vent Rate Mechanical Rate PEEP Pressure Support Vent Sodium 143 Potassium 4.0 Chloride 111 H Carbon Dioxide 22 D Anion Gap 10 BUN 11 D Creatinine 0.7 D Creat Clearance w eGFR > 60 Random Glucose 96 D Lactic Acid Calcium 8.6 Total Bilirubin 0.4 D AST 43 H D ALT 64 D Alkaline Phosphatase 291 H D Total Protein 7.5 D Albumin 2.9 L D Urine Color Yellow Urine Appearance Clear Urine pH 9.0 H Ur Specific [place] 1.019 Urine Protein 2+ H Urine Glucose (UA) Negative Urine Ketones Negative Urine Blood Negative Urine Nitrite Negative Urine Bilirubin Negative Urine Urobilinogen Negative Ur Leukocyte Esterase Negative 06/27/16 07:20 WBC RBC Hgb Hct MCV MCHC RDW Plt Count MPV Neutrophils % Lymphocytes % Monocytes % Eosinophils % Basophils % Puncture Site Left radial ABG pH 7.37 ABG pCO2 at Pt Temp 36.7 ABG pO2 at Pt Temp 311.0 H* ABG HCO3 20.6 L ABG O2 Sat (Measured) 99.6 H* ABG O2 Content 19.2 ABG Base Excess -3.7 L Kaushal Test Positive Carboxyhemoglobin Methemoglobin O2 Delivery Device Vent Oxygen Flow Rate 65 Vent Mode A/c Vent Rate 12 Mechanical Rate Yes PEEP 5.0 Pressure Support Vent 350 Sodium Potassium Chloride Carbon Dioxide Anion Gap BUN Creatinine Creat Clearance w eGFR Random Glucose Lactic Acid Calcium Total Bilirubin AST ALT Alkaline Phosphatase Total Protein Albumin Urine Color Urine Appearance Urine pH Ur Specific [place] Urine Protein Urine Glucose (UA) Urine Ketones Urine Blood Urine Nitrite Urine Bilirubin Urine Urobilinogen Ur Leukocyte Esterase ASSESSMENT AND PLAN: Acute Hypoxic Respiratory Failure r/o Pneumonia/Sepsis Lactic Acidosis r/o Acute Pulmonary Edema Elevated LFTs Mental Retardation Seizure Disorder Functional Quadriplegia - Empirically ABX for pneumonia to cover aspiration - Follow cultures -> If negative send cultures, UA, urine culture - Monitor off IVF - Monitor off sedation and start weaning trials - DVT/GI prophylaxis Dr Price CCTime 35"
[2016-06-27] MEDS: PROPOFOL 100 ML IV SCH ×4 (14:29→23:00)
--- NOTE | 2016-06-27 14:46 | PN ---
Physical Exam: SUBJECTIVE: Patient seen and examined at bedside in ICU. Per nurse, no acute event overnight. Extubated and did not tolerate ventimask, now on bipap 50% and tolerating well. OBJECTIVE: Vital Signs Period Temp Pulse Resp BP Sys/Linares Pulse Ox Last 24 Hr 95 F-98.1 F 40-110 12-32 92-120/42-77 96-98 GENERAL: non-verbal, blind, severely mentally retarded, does not follow command , on non-rebreather mask 100%. HEAD: Normal with no signs of trauma. EYES: Pupils equal, non-reactive, rotatory nystagmus LUNGS: distant breath sounds, no wheezing or rhonchi HEART: RRR without murmur, gallop, rub ABDOMEN: Soft, nontender, not distended, normoactive bowel sounds, no guarding, no rebound, no masses. +PEG tube EXTREMITIES: contracted in position. No peripheral edema. Laboratory Results - last 24 hr 06/26/16 06/26/16 06/26/16 16:45 16:45 17:00 WBC RBC Hgb Hct MCV MCHC RDW Plt Count MPV Neutrophils % Lymphocytes % Monocytes % Eosinophils % Basophils % Puncture Site Right radial ABG pH 7.49 H ABG pCO2 at Pt Temp 35.3 ABG pO2 at Pt Temp 320.0 H* ABG HCO3 26.6 H ABG O2 Sat (Measured) 99.6 H* ABG O2 Content 19.2 ABG Base Excess 3.8 H Kaushal Test Positive Carboxyhemoglobin 0.6 Methemoglobin 1.4 O2 Delivery Device Ot Oxygen Flow Rate 100% Vent Mode Ac Vent Rate 12 Mechanical Rate Esprit PEEP 5.0 Pressure Support Vent 350 Sodium Potassium Chloride Carbon Dioxide Anion Gap BUN Creatinine Creat Clearance w eGFR Random Glucose Calcium Total Bilirubin AST ALT Alkaline Phosphatase Total Protein Albumin Urine Color Yellow Urine Appearance Clear Urine pH 9.0 H Ur Specific [place] 1.019 Urine Protein 2+ H Urine Glucose (UA) Negative Urine Ketones Negative Urine Blood Negative Urine Nitrite Negative Urine Bilirubin Negative Urine Urobilinogen Negative Ur Leukocyte Esterase Negative 06/27/16 06/27/16 06/27/16 05:35 05:35 07:20 WBC 7.5 D RBC 3.49 L D Hgb 12.2 D Hct 35.8 D MCV 102.5 H MCHC 34.2 RDW 16.4 H Plt Count 183 MPV 10.6 Neutrophils % 76.2 Lymphocytes % 15.3 D Monocytes % 7.0 Eosinophils % 1.3 Basophils % 0.2 Puncture Site Left radial ABG pH 7.37 ABG pCO2 at Pt Temp 36.7 ABG pO2 at Pt Temp 311.0 H* ABG HCO3 20.6 L ABG O2 Sat (Measured) 99.6 H* ABG O2 Content 19.2 ABG Base Excess -3.7 L Kaushal Test Positive Carboxyhemoglobin Methemoglobin O2 Delivery Device Vent Oxygen Flow Rate 65 Vent Mode A/c Vent Rate 12 Mechanical Rate Yes PEEP 5.0 Pressure Support Vent 350 Sodium 143 Potassium 4.0 Chloride 111 H Carbon Dioxide 22 D Anion Gap 10 BUN 11 D Creatinine 0.7 D Creat Clearance w eGFR > 60 Random Glucose 96 D Calcium 8.6 Total Bilirubin 0.4 D AST 43 H D ALT 64 D Alkaline Phosphatase 291 H D Total Protein 7.5 D Albumin 2.9 L D Urine Color Urine Appearance Urine pH Ur Specific [place] Urine Protein Urine Glucose (UA) Urine Ketones Urine Blood Urine Nitrite Urine Bilirubin Urine Urobilinogen Ur Leukocyte Esterase Active Medications Generic Name Dose Route Start Last Admin Trade Name Freq PRN Reason Stop Dose Admin Acetaminophen 650 mg 06/26/16 12:21 Tylenol Suppository - [place] Q4H PRN FEVER OR PAIN Albuterol/Ipratropium 1 amp 06/26/16 18:00 06/27/16 11:38 Duoneb - NEB 1 amp QIDR JORGE Administration Bisacodyl 10 mg 06/27/16 10:00 06/27/16 09:37 Dulcolax Suppository - RC 10 mg DAILY JORGE Administration Chlorhexidine Gluconate 1 applic 06/26/16 22:00 06/26/16 22:00 Hibiclens For Decolonization - TP 1 applic HS JORGE Administration Clobazam 10 mg 06/27/16 10:00 06/27/16 09:37 Onfi - PO 10 mg DAILY JORGE Administration Clonazepam 0.5 mg 06/26/16 14:00 06/27/16 06:31 Klonopin - GT 0.5 mg TID JORGE Administration Diazepam 10 mg 06/27/16 01:29 Diastat Rectal Gel - RC DAILY PRN seizure Enoxaparin Sodium 40 mg 06/27/16 10:00 06/27/16 09:37 Lovenox - SQ 40 mg DAILY JORGE Administration Propofol 100 mls @ 1.257 mls/hr 06/26/16 12:30 06/26/16 15:25 Diprivan - IV Not Given TITR JORGE Protocol 5 MCG/KG/MIN Sodium Chloride 1,000 mls @ 125 mls/hr 06/26/16 12:30 06/27/16 06:38 Normal Saline - IV 125 mls/hr ASDIR JORGE Administration Piperacillin Sod/Tazobactam Sod 50 mls @ 100 mls/hr 06/26/16 18:00 06/27/16 09: 37 Zosyn 3.375gm Ivpb (Pre-Docked) IVPB 100 mls/hr Q8H-IV JORGE Administration Protocol Mupirocin 1 applic 06/26/16 22:00 06/27/16 09:55 Bactroban Ointment (For Decolonization) - NS 07/01/16 21:59 1 applic BID JORGE Administration Ondansetron HCl 4 mg 06/26/16 12:21 Zofran Injection IVPB Q6H PRN NAUSEA Pantoprazole Sodium 40 mg 06/26/16 17:15 06/27/16 09:37 Protonix 40mg Ivpb (Pre-Docked) IVPB 40 mg DAILY JORGE Administration Phenobarbital 15 mg 06/26/16 22:00 06/27/16 09:37 Phenobarbital - PO 15 mg BID JORGE Administration Imaging CXR: Limited study, patient is markedly rotated to the left side. Most of the left lung is obscured with cardiac silhouette. ET tube is noted, the tip above bifurcation. The right diaphragm is not effaced. No pneumothorax is seen. No airspace opacities seen within limitation of examination in the right lung. LE doppler: Unable to visualize left popliteal vein due to leg contracture, Otherwise, no evidence of DVT in the lower extremities. Ultrasound of abdomen: Limited study. Heterogeneous echotexture of the liver without discrete mass seen. Microbiology 06/27/16 10:00 Nasopharyngeal Swab Respiratory Virus Panel - Preliminary 06/27/16 10:00 Nasopharyngeal Swab Influenza Types A,B Antigen (VANCE) - Final 06/27/16 10:00 Nasopharyngeal Swab - Final 06/26/16 10:00 Blood - Peripheral Venous Blood Culture - Preliminary NO GROWTH OBTAINED AFTER 24 HOURS, INCUBATION TO CONTINUE FOR 4 DAYS. 06/26/16 10:00 Blood - Peripheral Venous Blood Culture - Preliminary NO GROWTH OBTAINED AFTER 24 HOURS, INCUBATION TO CONTINUE FOR 4 DAYS. ASSESSMENT/PLAN: 21 yo M [place] resident with history of herpetic encephalitis, profound mental retardation, epilepsy, chronic hypothermia, asthma admitted to the ICU for acute respiratory failure. Neuro - baseline: non-verbal, legally blind, no gag reflex - severely mentally retarded - cont. konopin, clobazam, phenobarbital - low body temp at baseline * ahsan cruz PRN ID - WBC normalized - on zosyn for aspiration PNA - lactate normalized - cultures negative Pulm - extubated, now on bipap - pt previously on ventimask 5L during day and bipap at night at [place] - dexamethasone 6mg Q8H IVPB GI - PEG tube intact Renal/ - stable - cont. hydration NS @125ml/hr Prophylaxis - DVT: lovenox - GI: not indicated Nutrition - mayb resume diet after transferring back to floor Dispo: will transfer to med-surg once pt tolerates bipap Visit type - Emergency Visit Emergency Visit: No - New Patient This patient is new to me today: No - Critical Care Critical Care patient: Yes Total Critical Care Time (in minutes): 35 Critical Care Statement: The care of this patient involved high complexity decision making to prevent further life threatening deterioration of the patient 's condition and/or to evalute & treat vital organ system(s) failure or risk of failure.
[2016-06-27] MEDS ORDERED: DEXAMETHASONE SOD PHOSPHATE 10 MG/1 ML VIAL IVPB SCH (18:30)
[2016-06-27] MEDS: DEXAMETHASONE SOD PHOSPHATE 10 MG/1 ML VIAL IVPB SCH (18:35)
[2016-06-27 20:18] LABS: ALLENS TEST POSITIVE; ARTERIAL BLD GAS O2 SATURATION 96.6 % (90-98.9); ARTERIAL BLOOD GAS BASE EXCESS -7.7 meq/l (-2-2)
[2016-06-27 20:19] LABS: ART PUNCT SITE LEFT RADIAL; LPM/O2% 50; PT. ON O2? YES; TYPE OF O2 BIPAP
[2016-06-27 20:20] LABS: ARTERIAL BLOOD GAS HCO3 17.9 meq/L (22-26); ARTERIAL BLOOD GAS pH 7.26 (7.35-7.45); PT'S TEMP 101.7; VENT RATE 12
[2016-06-27] MEDS ORDERED: RAPID SEQUENCE INTUBATION KIT NR ONE (20:23)
--- NOTE | 2016-06-27 20:58 | PROC ---
Intubation - Intubation Reason for Intubation: Respiratory Failure Time of Intubation: 20:53 Intubation Method: orotracheal Blade used: Mac Tube Size (cm): 6.5 Tube position @ lip (cm): 22 Tube position confirmed by: Direct visualization, CO2 detector, Breath sounds Post Intubation Xray: Yes (ordered) Remarks: Bedside intubation for developmentally delayed young man who was extubated earlier today. On exam pt HR 130s, RR 40, accessory muscle use. RSI with Propofol 30mg, Succ 50, Fent 50. Grade I view with Mac III blade. 6.5 placed atraumatically after smooth induction. Placed 22cm at lip. + ETCO2, +BS. Improvement in hemodynamics. CXR ordered. Iglesia Matute ACNP [id number]
[2016-06-27] MEDS: CHLORHEXIDINE GLUCONATE 4% CLEANSER FOR DECOLONIZATION TP SCH (22:38)
[2016-06-28] MEDS: PIPERACILLIN/TAZOB 3.375 GM 50 ML IVPB SCH ×3 (01:58→18:07)
[2016-06-28] MEDS: DEXAMETHASONE SOD PHOSPHATE 10 MG/1 ML VIAL IVPB SCH ×2 (01:58→09:34)
[2016-06-28] MEDS ORDERED: DEXAMETHASONE SOD PHOSPHATE 10 MG/1 ML VIAL IVPB SCH (02:00)
[2016-06-28] MEDS: clonazePAM 0.5 MG TABLET GT SCH ×3 (05:29→22:05)
[2016-06-28] MEDS: ALBUTEROL SO4 2.5/IPRATROPIUM 0.5 INH SOL 3 ML VIAL.NEB. NEB SCH ×4 (05:57→18:29)
[2016-06-28 06:06] LABS: EOSINOPHIL 0.1 % (0-4.5); MCH 34.7 pg (25.7-33.7); MCHC 34.1 g/dl (32.0-35.9); MEAN CELL VOLUME 101.9 fl (80-96); MEAN PLT VOLUME 10.6 fl (7.5-11.1); NEUTROPHILS 89.5 % (42.8-82.8); PLATELET COUNT 159 K/MM3 (134-434); RDW 16.3 % (11.9-15.9); WHITE BLOOD COUNT 17.3 K/mm3 (4.0-10.0)
[2016-06-28 06:34] LABS: ALBUMIN 2.7 g/dl (3.4-5.0); ANION GAP 10 (8-16); CALCIUM 8.3 mg/dL (8.5-10.1); CO2 21 mmol/L (21-32); GLUCOSE,RANDOM 124 mg/dL (74-106)
[2016-06-28 06:39] LABS: ALK PHOS 268 U/L (45-117); BILIRUBIN,TOTAL 0.6 mg/dL (0.2-1.0); CREATININE 0.8 mg/dL (0.7-1.3); SGOT/AST 45 U/L (15-37); SGPT/ALT 61 U/L (12-78)
--- NOTE | 2016-06-28 07:20 | PN ---
[id number] overnight; was tachycardic into the 130s, tachypeic to the 40s with accessory muscle use. Vent Settings: AC, TV 350, FiO2 40%, RR 12, PEEP 5 Now sedated on propofol gtt at 20mcg/kg ABG respiratory alkalosis (improving) with concurrent metabolic acidosis (also improving): Imaging - EKG (06/26/16): sinus bradycardia with sinus arrhythmia at 43pm - RUQ Abdominal ultrasound (06/26/16) - Limited study, visualization was limitied , there is heterogenous echotexture of liver, without discrete mass seen. - Vascular Duplex (06/26/16) - unable to visualize left popliteal vein due to leg contracture, otherwise no evidence of DVT in LE's. - Echo (06/27/16) - Normal LVEF. - CXR (06/26/16) - Increased perihilar interstitial lung markings. Cardiac silhouette is upper limits of normal. Findings reflect congestive changes, and chronic deformity of the ribs are noted, the ET tube tip lies at the level of the lower clavicles. - CXR (06/27/16) - Limited study, pt is markedly rotated to the left side. Most of the left lung is obscured with cardiac silhouette. ET tube is noted, tip above bifurcation. The diaphragm is not effaced. No airspace opacities seen of right lung. - CXR (06/28/16) - New RLL infiltrate. Vital Signs Period Temp Pulse Resp BP Sys/Linares Pulse Ox Last 24 Hr 97.4 F-101.4 F 50-140 12-44 90-119/43-66 90-97 GENERAL: Intubated, sedated, RASS -2. LUNGS: Bilateral breath sounds clear to auscultation no wheezes, no accessory muscle use. HEART: Bradycardic, S1, S2 without murmur, rub or gallop. ABDOMEN: Soft, nontender, nondistended, normoactive bowel sounds, PEG tube in place. EXTREMITIES: Contracted. 2+ pulses, warm, well-perfused, no edema. NEUROLOGICAL: Nonverbal, unable to follow commands at baseline. SKIN: Warm, dry, normal turgor, cap refill < 3 seconds. CBCD WBC 17.3 K/mm3 (4.0-10.0) H D 06/28/16 05:00 RBC 3.20 M/mm3 (4.00-5.60) L 06/28/16 05:00 Hgb 11.1 GM/dL (11.7-16.9) L 06/28/16 05:00 Hct 32.6 % (35.4-49) L 06/28/16 05:00 MCV 101.9 fl (80-96) H 06/28/16 05:00 MCHC 34.1 g/dl (32.0-35.9) 06/28/16 05:00 RDW 16.3 % (11.9-15.9) H 06/28/16 05:00 Plt Count 159 K/MM3 (134-434) 06/28/16 05:00 MPV 10.6 fl (7.5-11.1) 06/28/16 05:00 CMP Sodium 140 mmol/L (136-145) 06/28/16 05:00 Potassium 3.7 mmol/L (3.5-5.1) 06/28/16 05:00 Chloride 109 mmol/L (98-107) H 06/28/16 05:00 Carbon Dioxide 21 mmol/L (21-32) 06/28/16 05:00 Anion Gap 10 (8-16) 06/28/16 05:00 BUN 8 mg/dL (7-18) D 06/28/16 05:00 Creatinine 0.8 mg/dL (0.7-1.3) 06/28/16 05:00 Creat Clearance w eGFR > 60 (>60) 06/28/16 05:00 Random Glucose 124 mg/dL (74-106) H D 06/28/16 05:00 Calcium 8.3 mg/dL (8.5-10.1) L 06/28/16 05:00 Total Bilirubin 0.6 mg/dL (0.2-1.0) D 06/28/16 05:00 AST 45 U/L (15-37) H 06/28/16 05:00 ALT 61 U/L (12-78) 06/28/16 05:00 Alkaline Phosphatase 268 U/L (45-117) H 06/28/16 05:00 Total Protein 7.0 g/dl (6.4-8.2) 06/28/16 05:00 Albumin 2.7 g/dl (3.4-5.0) L 06/28/16 05:00 ABG Results ABG pH 7.26 (7.35-7.45) L 06/27/16 20:07 ABG pCO2 at Pt Temp 42.2 mmHg (35-45) 06/27/16 20:07 ABG pO2 at Pt Temp 112.0 mmHg (80-100) H D 06/27/16 20:07 ABG HCO3 17.9 meq/L (22-26) L 06/27/16 20:07 ABG O2 Sat (Measured) 96.6 % (90-98.9) 06/27/16 20:07 ABG O2 Content 17.8 % vol (15-22) 06/27/16 20:07 ABG Base Excess -7.7 meq/l (-2-2) L 06/27/16 20:07 ABG pH 7.45 (7.35-7.45) D 06/28/16 07:50 ABG pCO2 at Pt Temp 17.3 mmHg (35-45) L* D 06/28/16 07:50 ABG pO2 at Pt Temp 166.0 mmHg (80-100) H* 06/28/16 07:50 ABG HCO3 11.9 meq/L (22-26) L* 06/28/16 07:50 ABG O2 Sat (Measured) 99.5 % (90-98.9) H 06/28/16 07:50 ABG O2 Content 14.3 % vol (15-22) L 06/28/16 07:50 ABG Base Excess -10.3 meq/l (-2-2) L* 06/28/16 07:50 ABG pH 7.45 (7.35-7.45) 06/28/16 13:05 ABG pCO2 at Pt Temp 29.0 mmHg (35-45) L D 06/28/16 13:05 ABG pO2 at Pt Temp 109.0 mmHg (80-100) H D 06/28/16 13:05 ABG HCO3 19.6 meq/L (22-26) L 06/28/16 13:05 ABG O2 Sat (Measured) 98.5 % (90-98.9) 06/28/16 13:05 ABG O2 Content 14.3 % vol (15-22) L 06/28/16 13:05 ABG Base Excess -3.2 meq/l (-2-2) L 06/28/16 13:05 Laboratory Results - last 24 hr 06/27/16 06/27/16 06/28/16 07:20 20:07 05:00 WBC 17.3 H D RBC 3.20 L Hgb 11.1 L Hct 32.6 L MCV 101.9 H MCHC 34.1 RDW 16.3 H Plt Count 159 MPV 10.6 Neutrophils % 89.5 H Lymphocytes % 8.5 D Monocytes % 1.9 L Eosinophils % 0.1 D Basophils % 0.0 Puncture Site Left radial Left radial Patient Temperature 101.7 ABG pH 7.37 7.26 L ABG pCO2 at Pt Temp 36.7 42.2 ABG pO2 at Pt Temp 311.0 H* 112.0 H D ABG HCO3 20.6 L 17.9 L ABG O2 Sat (Measured) 99.6 H* 96.6 ABG O2 Content 19.2 17.8 ABG Base Excess -3.7 L -7.7 L Kaushal Test Positive Positive O2 Delivery Device Vent Bipap Oxygen Flow Rate 65 50 Vent Mode A/c S/t Vent Rate 12 12 Mechanical Rate Yes PEEP 5.0 0.0 Pressure Support Vent 350 12/8 Sodium Potassium Chloride Carbon Dioxide Anion Gap BUN Creatinine Creat Clearance w eGFR Random Glucose Calcium Total Bilirubin AST ALT Alkaline Phosphatase Total Protein Albumin 06/28/16 05:00 WBC RBC Hgb Hct MCV MCHC RDW Plt Count MPV Neutrophils % Lymphocytes % Monocytes % Eosinophils % Basophils % Puncture Site Patient Temperature ABG pH ABG pCO2 at Pt Temp ABG pO2 at Pt Temp ABG HCO3 ABG O2 Sat (Measured) ABG O2 Content ABG Base Excess Kaushal Test O2 Delivery Device Oxygen Flow Rate Vent Mode Vent Rate Mechanical Rate PEEP Pressure Support Vent Sodium 140 Potassium 3.7 Chloride 109 H Carbon Dioxide 21 Anion Gap 10 BUN 8 D Creatinine 0.8 Creat Clearance w eGFR > 60 Random Glucose 124 H D Calcium 8.3 L Total Bilirubin 0.6 D AST 45 H ALT 61 Alkaline Phosphatase 268 H Total Protein 7.0 Albumin 2.7 L Active Medications Generic Name Dose Route Start Last Admin Trade Name Freq PRN Reason Stop Dose Admin Acetaminophen 650 mg 06/26/16 12:21 Tylenol Suppository - [place] Q4H PRN FEVER OR PAIN Albuterol/Ipratropium 1 amp 06/26/16 18:00 06/28/16 05:57 Duoneb - NEB 1 amp QIDR JORGE Administration Bisacodyl 10 mg 06/27/16 10:00 06/27/16 09:37 Dulcolax Suppository - RC 10 mg DAILY JORGE Administration Chlorhexidine Gluconate 1 applic 06/26/16 22:00 06/27/16 22:38 Hibiclens For Decolonization - TP 1 applic HS JORGE Administration Clobazam 10 mg 06/27/16 10:00 06/27/16 09:37 Onfi - PO 10 mg DAILY JORGE Administration Clonazepam 0.5 mg 06/26/16 14:00 06/28/16 05:29 Klonopin - GT 0.5 mg TID JORGE Administration Dexamethasone Sodium Phosphate 6 mg 06/27/16 18:30 06/28/16 01:58 Decadron Injection - IVPB 6 mg Q8H-IV JORGE Administration Diazepam 10 mg 06/27/16 01:29 Diastat Rectal Gel - RC DAILY PRN seizure Enoxaparin Sodium 40 mg 06/27/16 10:00 06/27/16 09:37 Lovenox - SQ 40 mg DAILY JORGE Administration Propofol 100 mls @ 1.257 mls/hr 06/26/16 12:30 06/28/16 00:00 Diprivan - IV 5.029 mls/hr TITR JORGE Administration Protocol 5 MCG/KG/MIN Sodium Chloride 1,000 mls @ 125 mls/hr 06/26/16 12:30 06/28/16 00:00 Normal Saline - IV 125 mls/hr ASDIR JORGE Administration Piperacillin Sod/Tazobactam Sod 50 mls @ 100 mls/hr 06/26/16 18:00 06/28/16 01: 58 Zosyn 3.375gm Ivpb (Pre-Docked) IVPB 100 mls/hr Q8H-IV JORGE Administration Protocol Mupirocin 1 applic 06/26/16 22:00 06/27/16 22:38 Bactroban Ointment (For Decolonization) - NS 07/01/16 21:59 1 applic BID JORGE Administration Ondansetron HCl 4 mg 02/16/17 12:21 Zofran Injection IVPB Q6H PRN NAUSEA Phenobarbital 15 mg 06/26/16 22:00 06/27/16 22:37 Phenobarbital - PO 15 mg BID JORGE Administration Microbiology 06/27/16 10:00 Nasopharyngeal Swab Influenza Types A,B Antigen (VANCE) - Final 06/27/16 10:00 Nasopharyngeal Swab - Final 06/26/16 17:00 Urine For Antigen Detection Legionella Antigen - Final 06/26/16 17:00 Urine For Antigen Detection Streptococcus pneumoniae Antigen (M - Final 06/27/16 10:00 Nasopharyngeal Swab Respiratory Virus Panel - Preliminary 06/26/16 10:00 Blood - Peripheral Venous Blood Culture - Preliminary NO GROWTH OBTAINED AFTER 24 HOURS, INCUBATION TO CONTINUE FOR 4 DAYS. 06/26/16 10:00 Blood - Peripheral Venous Blood Culture - Preliminary NO GROWTH OBTAINED AFTER 24 HOURS, INCUBATION TO CONTINUE FOR 4 DAYS. ASSESSMENT PLAN This is 21 year old male with PMH of MR, functional quadriplegia, seizure disorder, asthma, and chronic hypothermia, herpes encephalopathy, who was brought to the ED with hypoxia and respiratory distress. Patient was extubated , became tachypneic, tachycardic and in respiratory distress, reintubated and placed on ventilation and propofol gtt. Patient was found to be febrile and have a new infiltrate on CXR. Respiratory: Acute hypoxic respiratory failure - Re-intubated 06/27: TV 350, RR 12, FiO2 40%, PEEP 5, with an SPO2 99% - Propofol gtt for light sedation - CXR (06/28/16) shows new RLL infiltrate, febrile to 101.4 overnight - ABG shows improvement in both respiratory alkalosis and metabolic acidosis: 7.45/29/109/19.6 - Maintain SPO2 > 90% - SBT and sedation vacation as tolerated - Duonebs prn wheezing ID: Severe Sepsis: likely 2/2 aspiration pneumonia - WBC elevated 17.3, new infiltrate, new fever; will re-culture - Pending sputum culture - Urine cultures negative, urine legionella antigen not detected - Continue Zosyn 3.375 q8 hours to cover for HCAP, possible aspiration PNA Hepatic trasaminitis likely 2/2 sepsis, improving - Elevated LFT: AST 45, Alk Phos 268 continues to trend down - Abdominal ultrasound - heterogenous echotexture of liver, without discrete mass seen - Continue to trend Cardiac: Bradycardia - EKG: sinus bradycardic with sinus arrhythmia, decreased rate compared to last EKG 04/2013. - Telemetry monitoring - Echo showed LV and RV size, thickness and function are normal. LV ejection fraction is normal. There is trace Tricuspid regurgitation. Right ventricular systolic pressure is normal. Pulmonic valve leaflets are thin and pliable, and there is trace pulmonic valvular regurgitation. Neuro: Hypothermia, resolved - baseline 94 F, goal 95 F as per [facility] - ahsan cruz if temperature < 94F Seizure Disorder - Continue clonazepam, clobazam, phenobarbital Functional Quadriplegia - Contracted to all four extremities - Turn and position q2 hours, pressure ulcer prophylaxis GI: - PEG tube intact - Enteral tube feeding - high protein, low kcal diet - Reduce fluids to 75mL/hr; there does seem to be some mild pulmonary vascular congestion on the most recent CXR - Glucose monitoring Prophylaxis - DVT prophylaxis - lovenox 40mg daily - Stress ulcer px - protonix Disposition - Continues to require inpatient ICU care Code status - Full code Visit type - Emergency Visit Emergency Visit: Yes ED Registration Date: 06/26/16 Care time: The patient presented to the Emergency Department on the above date and was hospitalized for further evaluation of their emergent condition. - New Patient This patient is new to me today: Yes Date on this admission: 06/26/16 - Critical Care Critical Care patient: No - Discharge Referral Referred to [facility] Med P.C.: No
[2016-06-28 08:01] LABS: ARTERIAL BLD GAS O2 SATURATION 99.5 % (90-98.9); ARTERIAL BLOOD GAS BASE EXCESS -10.3 meq/l (-2-2); ARTERIAL BLOOD GAS HCO3 11.9 meq/L (22-26); ARTERIAL BLOOD GAS pH 7.45 (7.35-7.45)
[2016-06-28 08:08] LABS: ALLENS TEST POSITIVE; ART PUNCT SITE RIGHT RADIAL; LPM/O2% 50%; MECH. VENT. ESPRIT; PT. ON O2? YES; TYPE OF O2 MEC.VENT; VENT RATE 20; VT/PRESS 300
[2016-06-28] MEDS: SODIUM CHLORIDE 1,000 ML IV SCH ×6 (08:34→19:08)
[2016-06-28] MEDS: PROPOFOL 100 ML IV SCH ×3 (08:34→13:26)
[2016-06-28] MEDS ORDERED: PT OWN MED DRAWER 7, Y5N ONE (09:25)
[2016-06-28] MEDS: ENOXAPARIN NA (PORCINE) 40 MG/0.4 ML DISP.SYRIN SQ SCH (09:34)
[2016-06-28] MEDS: BISACODYL 10 MG SUPP.RECT RC SCH (09:34)
[2016-06-28] MEDS: cloBAZam 10 MG TABLET PO SCH (09:34)
[2016-06-28] MEDS: PHENobarbital 15 MG TABLET PO SCH ×2 (09:34→22:05)
[2016-06-28] MEDS: [UNRECOGNIZED DRUG - OTHER] GT SCH (09:35)
[2016-06-28] MEDS: MULTIVITAMIN GT SCH (09:35)
--- NOTE | 2016-06-28 09:43 | PN ---
Progress Note (short form) - Note Progress Note: Patient seen and examined in the ICU. Required Reintubation. Now lightly sedated on propofol. No pressors. ABG noted : vent settings were adjusted. CXR: Rotated / ETT in position / RLL consolidation/effusion Intake & Output 06/25/16 06/26/16 06/27/16 06/28/16 23:59 23:59 23:59 23:59 Intake Total 1620 2650 1550 Output Total 1000 1900 800 Balance 620 750 750 Weight 93 lb 11.143 oz 94 lb 9.253 oz 94 lb 9.253 oz Last Vital Signs Temp Pulse Resp BP Pulse Ox 98.7 F 54 L 20 93/45 95 06/28/16 08:00 06/28/16 08:00 06/28/16 08:00 06/28/16 08:00 06/28/16 08:00 Active Medications Acetaminophen (Tylenol Suppository -) 650 mg [place] Q4H PRN PRN Reason: FEVER OR PAIN Albuterol/Ipratropium (Duoneb -) 1 amp NEB QIDR [facility] Last Admin: 06/28/16 05:57 Dose: 1 amp Bisacodyl (Dulcolax Suppository -) 10 mg RC DAILY [facility] Last Admin: 06/28/16 09:34 Dose: 10 mg Chlorhexidine Gluconate (Hibiclens For Decolonization -) 1 applic TP HS [facility] Last Admin: 06/27/16 22:38 Dose: 1 applic Clobazam (Onfi -) 10 mg PO DAILY [facility] Last Admin: 06/28/16 09:34 Dose: 10 mg Clonazepam (Klonopin -) 0.5 mg GT TID [facility] Last Admin: 06/28/16 05:29 Dose: 0.5 mg Dexamethasone Sodium Phosphate (Decadron Injection -) 6 mg IVPB Q8H-IV [facility] Last Admin: 06/28/16 09:34 Dose: 6 mg Diazepam (Diastat Rectal Gel -) 10 mg RC DAILY PRN PRN Reason: seizure Enoxaparin Sodium (Lovenox -) 40 mg SQ DAILY [facility] Last Admin: 06/28/16 09:34 Dose: 40 mg Propofol (Diprivan -) 100 mls @ 1.257 mls/hr IV TITR JORGE; 5 MCG/KG/MIN PRN Reason: Protocol Last Admin: 06/28/16 08:34 Dose: 5.029 mls/hr Sodium Chloride (Normal Saline -) 1,000 mls @ 125 mls/hr IV ASDIR [facility] Last Admin: 06/28/16 08:34 Dose: 125 mls/hr Piperacillin Sod/Tazobactam Sod (Zosyn 3.375gm Ivpb (Pre-Docked)) 50 mls @ 100 mls/hr IVPB Q8H-IV JORGE PRN Reason: Protocol Last Admin: 06/28/16 09:31 Dose: 100 mls/hr Mupirocin (Bactroban Ointment (For Decolonization) -) 1 applic NS BID [facility] Stop: 07/01/16 21:59 Last Admin: 06/27/16 22:38 Dose: 1 applic Ondansetron HCl (Zofran Injection) 4 mg IVPB Q6H PRN PRN Reason: NAUSEA Phenobarbital (Phenobarbital -) 15 mg PO BID [facility] Last Admin: 06/28/16 09:34 Dose: 15 mg Gen: Intubated, sedated Heart: RRR Lung: decreased breath sounds at the bases Abd: soft, notender Ext: distal edema, contracted Laboratory Results - last 24 hr 06/27/16 06/28/16 06/28/16 20:07 05:00 05:00 WBC 17.3 H D RBC 3.20 L Hgb 11.1 L Hct 32.6 L MCV 101.9 H MCHC 34.1 RDW 16.3 H Plt Count 159 MPV 10.6 Neutrophils % 89.5 H Lymphocytes % 8.5 D Monocytes % 1.9 L Eosinophils % 0.1 D Basophils % 0.0 Puncture Site Left radial Patient Temperature 101.7 ABG pH 7.26 L ABG pCO2 at Pt Temp 42.2 ABG pO2 at Pt Temp 112.0 H D ABG HCO3 17.9 L ABG O2 Sat (Measured) 96.6 ABG O2 Content 17.8 ABG Base Excess -7.7 L Kaushal Test Positive O2 Delivery Device Bipap Oxygen Flow Rate 50 Vent Mode S/t Vent Rate 12 Mechanical Rate PEEP 0.0 Pressure Support Vent 12/8 Sodium 140 Potassium 3.7 Chloride 109 H Carbon Dioxide 21 Anion Gap 10 BUN 8 D Creatinine 0.8 Creat Clearance w eGFR > 60 Random Glucose 124 H D Lactic Acid Calcium 8.3 L Total Bilirubin 0.6 D AST 45 H ALT 61 Alkaline Phosphatase 268 H Total Protein 7.0 Albumin 2.7 L 06/28/16 06/28/16 07:50 08:15 WBC RBC Hgb Hct MCV MCHC RDW Plt Count MPV Neutrophils % Lymphocytes % Monocytes % Eosinophils % Basophils % Puncture Site Right radial Patient Temperature ABG pH 7.45 D ABG pCO2 at Pt Temp 17.3 L* D ABG pO2 at Pt Temp 166.0 H* ABG HCO3 11.9 L* ABG O2 Sat (Measured) 99.5 H ABG O2 Content 14.3 L ABG Base Excess -10.3 L* Kaushal Test Positive O2 Delivery Device Mec.vent Oxygen Flow Rate 50% Vent Mode A/c Vent Rate 20 Mechanical Rate Esprit PEEP 5.0 Pressure Support Vent 300 Sodium Potassium Chloride Carbon Dioxide Anion Gap BUN Creatinine Creat Clearance w eGFR Random Glucose Lactic Acid 0.918 Calcium Total Bilirubin AST ALT Alkaline Phosphatase Total Protein Albumin ASSESSMENT AND PLAN: Acute Hypoxic Respiratory Failure Pneumonia/Sepsis Lactic Acidosis (?) Acute Pulmonary Edema Elevated LFTs Mental Retardation Seizure Disorder Functional Quadriplegia - Empiric ABX for pneumonia to cover aspiration - Follow cultures - Monitor off IVF - Sedation vacation and SBTs as tolerated - DVT/GI prophylaxis - Re-check ABG - Enteral feeds Dr Price CCTime 35"
[2016-06-28] MEDS: MUPIROCIN 2% TOPICAL OINTMENT FOR DECOLONIZATION NS SCH ×2 (10:44→22:05)
[2016-06-28] MEDS: CHLORHEXIDINE GLUCONATE 0.12% 15ML CUP MM SCH ×2 (11:45→22:05)
[2016-06-28 13:11] LABS: ALLENS TEST POSITIVE; ART PUNCT SITE RIGHT RADIAL; ARTERIAL BLD GAS O2 SATURATION 98.5 % (90-98.9); ARTERIAL BLOOD GAS BASE EXCESS -3.2 meq/l (-2-2); ARTERIAL BLOOD GAS HCO3 19.6 meq/L (22-26); ARTERIAL BLOOD GAS pH 7.45 (7.35-7.45); PT. ON O2? YES
[2016-06-28 13:12] LABS: LPM/O2% 40%; MECH. VENT. Y; TYPE OF O2 MECH VENT; VENT RATE 12; VT/PRESS 350
[2016-06-28] MEDS: CHLORHEXIDINE GLUCONATE 4% CLEANSER FOR DECOLONIZATION TP SCH (22:06)
[2016-06-29] MEDS: PIPERACILLIN/TAZOB 3.375 GM 50 ML IVPB SCH ×3 (01:35→17:04)
[2016-06-29] MEDS: ALBUTEROL SO4 2.5/IPRATROPIUM 0.5 INH SOL 3 ML VIAL.NEB. NEB SCH ×4 (05:45→18:47)
[2016-06-29] MEDS: clonazePAM 0.5 MG TABLET GT SCH ×3 (06:56→21:34)
[2016-06-29 07:34] LABS: ARTERIAL BLD GAS O2 SATURATION 97.6 % (90-98.9); ARTERIAL BLOOD GAS HCO3 22.8 meq/L (22-26); ARTERIAL BLOOD GAS PO2 94.8 mmHg (80-100); ARTERIAL BLOOD GAS pH 7.41 (7.35-7.45)
[2016-06-29 07:37] LABS: ALLENS TEST POSITIVE; ART PUNCT SITE RIGHT RADIAL; PT. ON O2? YES
[2016-06-29 07:38] LABS: LPM/O2% 40%; MECH. VENT. ESPRIT; TYPE OF O2 MEC.VENT; VENT RATE 12; VT/PRESS 350
--- NOTE | 2016-06-29 07:41 | PN ---
Physical Exam: SUBJECTIVE: Patient seen and examined at the bedside on ventilator, pt is nonverbal, responsive to verbal stimuli. Current Medications Generic Name Dose Route Start Last Admin Trade Name Freq PRN Reason Stop Dose Admin Acetaminophen 650 mg 06/26/16 12:21 Tylenol Suppository - HI Q4H PRN FEVER OR PAIN Albuterol/Ipratropium 1 amp 06/26/16 18:00 06/29/16 11:47 Duoneb - NEB 1 amp QIDR JORGE Administration Bisacodyl 10 mg 06/27/16 10:00 06/29/16 09:45 Dulcolax Suppository - RC 10 mg DAILY JORGE Administration Chlorhexidine Gluconate 1 applic 06/26/16 22:00 06/28/16 22:06 Hibiclens For Decolonization - TP 1 applic HS JORGE Administration Chlorhexidine Gluconate 15 ml 06/28/16 10:00 06/29/16 09:44 Peridex - MM 15 ml BID JORGE Administration Clobazam 10 mg 06/27/16 10:00 06/29/16 09:45 Onfi - PO 10 mg DAILY JORGE Administration Clonazepam 0.5 mg 06/26/16 14:00 06/29/16 06:56 Klonopin - GT 0.5 mg TID JORGE Administration Diazepam 10 mg 06/27/16 01:29 Diastat Rectal Gel - RC DAILY PRN seizure Enoxaparin Sodium 40 mg 06/27/16 10:00 06/29/16 09:45 Lovenox - SQ 40 mg DAILY JORGE Administration Propofol 100 mls @ 1.257 mls/hr 06/26/16 12:30 06/28/16 17:00 Diprivan - IV 15 mcg/kg/min TITR JORGE Titration Protocol 5 MCG/KG/MIN Piperacillin Sod/Tazobactam Sod 50 mls @ 100 mls/hr 06/26/16 18:00 06/29/16 09: 44 Zosyn 3.375gm Ivpb (Pre-Docked) IVPB 100 mls/hr Q8H-IV JORGE Administration Protocol Sodium Chloride 1,000 mls @ 75 mls/hr 06/28/16 14:50 06/28/16 19:08 Normal Saline - IV 75 mls/hr ASDIR JORGE Administration Mupirocin 1 applic 06/26/16 22:00 06/29/16 09:47 Bactroban Ointment (For Decolonization) - NS 07/01/16 21:59 1 applic BID JORGE Administration Ondansetron HCl 4 mg 06/26/16 12:21 Zofran Injection IVPB Q6H PRN NAUSEA Phenobarbital 15 mg 06/26/16 22:00 06/29/16 09:45 Phenobarbital - PO 15 mg BID JORGE Administration OBJECTIVE: Ventilator setting: AC TV 350, FiO2 40, RR 12, PEEP 5 AB.41/36.3/94.8/22.8 On propofol gtt 15mcg/kg/min Vital Signs Period Temp Pulse Resp BP Sys/Linares Pulse Ox Last 24 Hr 97.1 F-99.2 F 48-100 12-21 90-108/38-70 97-99 Physical Exam GENERAL: Intubated, nonverbal, responsive to verbal stimuli. LUNGS: Bilateral course rhonchi to auscultation, frequent course cough. HEART: Bradycardic, S1, S2 without murmur, rub or gallop. ABDOMEN: Soft, nontender, nondistended, normoactive bowel sounds, PEG tube in place. EXTREMITIES: Contracted. 2+ pulses, warm, well-perfused, no edema. NEUROLOGICAL: Nonverbal, unable to follow commands at baseline. SKIN: Warm, dry, normal turgor, cap refill < 3 seconds. CBCD WBC 14.9 K/mm3 (4.0-10.0) H 06/29/16 09:00 RBC 2.77 M/mm3 (4.00-5.60) L 06/29/16 09:00 Hgb 9.6 GM/dL (11.7-16.9) L D 06/29/16 09:00 Hct 28.3 % (35.4-49) L 06/29/16 09:00 MCV 102.2 fl (80-96) H 06/29/16 09:00 MCHC 34.1 g/dl (32.0-35.9) 06/29/16 09:00 RDW 17.3 % (11.9-15.9) H 06/29/16 09:00 Plt Count 147 K/MM3 (134-434) 06/29/16 09:00 MPV 10.2 fl (7.5-11.1) 06/29/16 09:00 CMP Sodium 145 mmol/L (136-145) 06/29/16 09:00 Potassium 3.0 mmol/L (3.5-5.1) L 06/29/16 09:00 Chloride 113 mmol/L (98-107) H 06/29/16 09:00 Carbon Dioxide 24 mmol/L (21-32) 06/29/16 09:00 Anion Gap 8 (8-16) 06/29/16 09:00 BUN 7 mg/dL (7-18) 06/29/16 09:00 Creatinine 0.6 mg/dL (0.7-1.3) L D 06/29/16 09:00 Creat Clearance w eGFR > 60 (>60) 06/29/16 09:00 Random Glucose 113 mg/dL (74-106) H 06/29/16 09:00 Calcium 8.0 mg/dL (8.5-10.1) L 06/29/16 09:00 Total Bilirubin 0.3 mg/dL (0.2-1.0) D 06/29/16 09:00 AST 42 U/L (15-37) H 06/29/16 09:00 ALT 54 U/L (12-78) 06/29/16 09:00 Alkaline Phosphatase 235 U/L (45-117) H 06/29/16 09:00 Total Protein 6.6 g/dl (6.4-8.2) 06/29/16 09:00 Albumin 2.5 g/dl (3.4-5.0) L 06/29/16 09:00 Microbiology 06/28/16 10:00 Sputum - Endotrachea Suction/Ventilator Gram Stain - Final 06/28/16 10:00 Sputum - Endotrachea Suction/Ventilator Sputum Culture - Preliminary Diphtheroid/Corynebacterium Non Lactose Fermenting Gnb 06/26/16 10:00 Blood - Peripheral Venous Blood Culture - Preliminary NO GROWTH OBTAINED AFTER 72 HOURS, INCUBATION TO CONTINUE FOR 2 DAYS. 06/26/16 10:00 Blood - Peripheral Venous Blood Culture - Preliminary NO GROWTH OBTAINED AFTER 72 HOURS, INCUBATION TO CONTINUE FOR 2 DAYS. 06/26/16 17:00 Urine - Urine Lane Urine Culture - Final NO GROWTH OBTAINED 06/26/16 17:00 Urine For Antigen Detection Legionella Antigen - Final 06/26/16 17:00 Urine For Antigen Detection Streptococcus pneumoniae Antigen (M - Final 06/27/16 10:00 Nasopharyngeal Swab Respiratory Virus Panel - Preliminary 06/27/16 10:00 Nasopharyngeal Swab Influenza Types A,B Antigen ([facility]) - Final 06/27/16 10:00 Nasopharyngeal Swab - Final Imaging - EKG (06/26/16): sinus bradycardia with sinus arrhythmia at 43pm - RUQ Abdominal ultrasound (06/26/16) - Limited study, visualization was limitied , there is heterogenous echotexture of liver, without discrete mass seen. - Vascular Duplex (06/26/16) - unable to visualize left popliteal vein due to leg contracture, otherwise no evidence of DVT in LE's. - Echo (06/27/16) - Normal LVEF. - CXR (06/26/16) - Increased perihilar interstitial lung markings. Cardiac silhouette is upper limits of normal. Findings reflect congestive changes, and chronic deformity of the ribs are noted, the ET tube tip lies at the level of the lower clavicles. - CXR (06/27/16) - Limited study, pt is markedly rotated to the left side. Most of the left lung is obscured with cardiac silhouette. ET tube is noted, tip above bifurcation. The diaphragm is not effaced. No airspace opacities seen of right lung. - CXR (06/28/16) - New RLL infiltrate. - CXR (06/29/16) - The infiltrative findings improved. ASSESSMENT This is 21 year old male with PMH of MR, functional quadriplegia, seizure disorder, asthma, and chronic hypothermia, herpes encephalopathy, who was brought to the ED with hypoxia and respiratory distress. Patient was extubated , became tachypneic, tachycardic and in respiratory distress, reintubated and placed on ventilation and propofol gtt. Patient was found to be febrile and have a new infiltrate on CXR. PLAN Respiratory: Acute hypoxic respiratory failure - Intubated: TV 350, RR 12, FiO2 40%, PEEP 5, with an SPO2 99% - Propofol gtt for light sedation - Wean trial, sedation vacation - ABG shows improvement: 7.41/36.3/94.8/22.8 - Maintain SPO2 > 90% - Duonebs prn wheezing - Appreciate critical care consult ID: Severe Sepsis: likely 2/2 aspiration pneumonia - WBC improved from 17.3 to 14.9, new infiltrate improved on current CXR, remains afebrile; pending blood cultures - Sputum culture showed positive for diphtheroid/corynebacterium, non lactose fermenting GNB, awaiting final culture and sensitivity - Urine cultures negative, urine legionella antigen not detected - Continue Zosyn 3.375 q8 hours to cover for HCAP, possible aspiration PNA GI: Hepatic trasaminitis likely 2/2 sepsis, improving - Elevated LFTs continues to trend down, continue fluids - Abdominal ultrasound - heterogenous echotexture of liver, without discrete mass seen - Continue to trend Cardiac: Bradycardia - EKG: sinus bradycardic with sinus arrhythmia, decreased rate compared to last EKG 04/2013. - Telemetry monitoring - Echo showed LV and RV size, thickness and function are normal. LV ejection fraction is normal. There is trace Tricuspid regurgitation. Right ventricular systolic pressure is normal. Pulmonic valve leaflets are thin and pliable, and there is trace pulmonic valvular regurgitation. Neuro: Hypothermia, resolved - baseline 94 F, goal 95 F as per [facility] - ahsan cruz if temperature < 94F Seizure Disorder - Continue clonazepam, clobazam, phenobarbital Functional Quadriplegia - Contracted to all four extremities - Turn and position q2 hours, pressure ulcer prophylaxis Hematology: Anemia - H/H trending down - F/u stool for occult blood - Hemodilutional? - Continue to trend F/E/N - Hyponatremia: replete - PEG tube intact - Enteral tube feeding - high protein, low kcal diet - Continue IVF at 75mL/hr Prophylaxis - DVT prophylaxis - lovenox 40mg daily - Stress ulcer px - protonix Disposition - Continues to require inpatient ICU care Code status - Full code Problem List - Problems (1) Elevated alkaline phosphatase level Code(s): R74.8 - ABNORMAL LEVELS OF OTHER SERUM ENZYMES (2) Hypotension Code(s): I95.9 - HYPOTENSION, UNSPECIFIED (3) Lactic acidosis Code(s): E87.2 - ACIDOSIS (4) Seizure Code(s): R56.9 - UNSPECIFIED CONVULSIONS (5) Transaminitis Code(s): R74.0 - NONSPEC ELEV OF LEVELS OF TRANSAMNS & LACTIC ACID DEHYDRGNSE (6) Asthma Code(s): J45.909 - UNSPECIFIED ASTHMA, UNCOMPLICATED (7) Epilepsy Code(s): G40.909 - EPILEPSY, UNSP, NOT INTRACTABLE, WITHOUT STATUS EPILEPTICUS (8) Profound mental retardation Code(s): F73 - PROFOUND INTELLECTUAL DISABILITIES (9) Severe sepsis Code(s): A41.9 - SEPSIS, UNSPECIFIED ORGANISM R65.20 - SEVERE SEPSIS WITHOUT SEPTIC SHOCK Visit type - Emergency Visit Emergency Visit: Yes ED Registration Date: 06/26/16 Care time: The patient presented to the Emergency Department on the above date and was hospitalized for further evaluation of their emergent condition. - New Patient This patient is new to me today: No - Critical Care Critical Care patient: Yes Total Critical Care Time (in minutes): 45 Critical Care Statement: The care of this patient involved high complexity decision making to prevent further life threatening deterioration of the patient 's condition and/or to evalute & treat vital organ system(s) failure or risk of failure.
[2016-06-29 09:21] LABS: MCH 34.8 pg (25.7-33.7); MCHC 34.1 g/dl (32.0-35.9); MEAN CELL VOLUME 102.2 fl (80-96); MEAN PLT VOLUME 10.2 fl (7.5-11.1); PLATELET COUNT 147 K/MM3 (134-434); RDW 17.3 % (11.9-15.9); WHITE BLOOD COUNT 14.9 K/mm3 (4.0-10.0)
[2016-06-29] MEDS ORDERED: PT OWN MED DRAWER 7, Y5N ONE (09:42)
[2016-06-29] MEDS: CHLORHEXIDINE GLUCONATE 0.12% 15ML CUP MM SCH ×2 (09:44→21:34)
[2016-06-29 09:45] LABS: ALBUMIN 2.5 g/dl (3.4-5.0); ANION GAP 8 (8-16); CO2 24 mmol/L (21-32); CREATININE 0.6 mg/dL (0.7-1.3); GLUCOSE,RANDOM 113 mg/dL (74-106); SGOT/AST 42 U/L (15-37); SGPT/ALT 54 U/L (12-78)
[2016-06-29] MEDS: BISACODYL 10 MG SUPP.RECT RC SCH (09:45)
[2016-06-29] MEDS: ENOXAPARIN NA (PORCINE) 40 MG/0.4 ML DISP.SYRIN SQ SCH (09:45)
[2016-06-29] MEDS: PHENobarbital 15 MG TABLET PO SCH ×2 (09:45→21:34)
[2016-06-29] MEDS: cloBAZam 10 MG TABLET PO SCH (09:45)
[2016-06-29 09:46] LABS: ALK PHOS 235 U/L (45-117); BILIRUBIN,TOTAL 0.3 mg/dL (0.2-1.0); TOT PROT 6.6 g/dl (6.4-8.2)
[2016-06-29] MEDS: MULTIVITAMIN GT SCH (09:46)
[2016-06-29] MEDS: [UNRECOGNIZED DRUG - OTHER] GT SCH (09:46)
[2016-06-29] MEDS: MUPIROCIN 2% TOPICAL OINTMENT FOR DECOLONIZATION NS SCH ×2 (09:47→21:33)
--- NOTE | 2016-06-29 09:56 | PN ---
Progress Note (short form) - Note Progress Note: Patient seen and examined in the ICU. Remains intubated on 40% FiO2. Lightly sedated on propofol. No pressors. CXR: Rotated / ETT in position / some improvement in the RLL Intake & Output 06/26/16 06/27/16 06/28/16 06/29/16 23:59 23:59 23:59 23:59 Intake Total 1620 2650 3192 1520 Output Total 1000 1900 1875 700 Balance 108 880 7213 820 Weight 93 lb 11.143 oz 94 lb 9.253 oz 94 lb 9.253 oz 96 lb Last Vital Signs Temp Pulse Resp BP Pulse Ox 98.6 F 52 L 13 99/49 97 06/29/16 06:00 06/29/16 08:00 06/29/16 08:00 06/29/16 08:00 06/28/16 21:00 Active Medications Acetaminophen (Tylenol Suppository -) 650 mg IA Q4H PRN PRN Reason: FEVER OR PAIN Albuterol/Ipratropium (Duoneb -) 1 amp NEB QIDR [facility] Last Admin: 06/29/16 05:45 Dose: 1 amp Bisacodyl (Dulcolax Suppository -) 10 mg RC DAILY [facility] Last Admin: 06/29/16 09:45 Dose: 10 mg Chlorhexidine Gluconate (Hibiclens For Decolonization -) 1 applic TP HS [facility] Last Admin: 06/28/16 22:06 Dose: 1 applic Chlorhexidine Gluconate (Peridex -) 15 ml MM BID [facility] Last Admin: 06/29/16 09:44 Dose: 15 ml Clobazam (Onfi -) 10 mg PO DAILY [facility] Last Admin: 06/29/16 09:45 Dose: 10 mg Clonazepam (Klonopin -) 0.5 mg GT TID [facility] Last Admin: 06/29/16 06:56 Dose: 0.5 mg Diazepam (Diastat Rectal Gel -) 10 mg RC DAILY PRN PRN Reason: seizure Enoxaparin Sodium (Lovenox -) 40 mg SQ DAILY [facility] Last Admin: 06/29/16 09:45 Dose: 40 mg Propofol (Diprivan -) 100 mls @ 1.257 mls/hr IV TITR JORGE; 5 MCG/KG/MIN PRN Reason: Protocol Last Titration: 06/28/16 17:00 Dose: 15 mcg/kg/min Piperacillin Sod/Tazobactam Sod (Zosyn 3.375gm Ivpb (Pre-Docked)) 50 mls @ 100 mls/hr IVPB Q8H-IV JORGE PRN Reason: Protocol Last Admin: 06/29/16 09:44 Dose: 100 mls/hr Sodium Chloride (Normal Saline -) 1,000 mls @ 75 mls/hr IV ASDIR [facility] Last Admin: 06/28/16 19:08 Dose: 75 mls/hr Mupirocin (Bactroban Ointment (For Decolonization) -) 1 applic NS BID [facility] Stop: 07/01/16 21:59 Last Admin: 06/29/16 09:47 Dose: 1 applic Ondansetron HCl (Zofran Injection) 4 mg IVPB Q6H PRN PRN Reason: NAUSEA Phenobarbital (Phenobarbital -) 15 mg PO BID [facility] Last Admin: 06/29/16 09:45 Dose: 15 mg Gen: Intubated, sedated Heart: RRR Lung: Coarse rhonchi bases -> Right > Left Abd: soft, notender Ext: distal edema, contracted Laboratory Results - last 24 hr 06/28/16 06/29/16 06/29/16 13:05 07:25 09:00 WBC 14.9 H RBC 2.77 L Hgb 9.6 L D Hct 28.3 L MCV 102.2 H MCHC 34.1 RDW 17.3 H Plt Count 147 MPV 10.2 Puncture Site Right radial Right radial ABG pH 7.45 7.41 ABG pCO2 at Pt Temp 29.0 L D 36.3 D ABG pO2 at Pt Temp 109.0 H D 94.8 ABG HCO3 19.6 L 22.8 ABG O2 Sat (Measured) 98.5 97.6 ABG O2 Content 14.3 L 13.0 L ABG Base Excess -3.2 L -1.0 Kaushal Test Positive Positive O2 Delivery Device Mech vent Mec.vent Oxygen Flow Rate 40% 40% Vent Mode Ac A/c Vent Rate 12 12 Mechanical Rate Y Esprit PEEP 5.0 5.0 Pressure Support Vent 350 350 Sodium Potassium Chloride Carbon Dioxide Anion Gap BUN Creatinine Creat Clearance w eGFR Random Glucose Calcium Total Bilirubin AST ALT Alkaline Phosphatase Total Protein Albumin 06/29/16 09:00 WBC RBC Hgb Hct MCV MCHC RDW Plt Count MPV Puncture Site ABG pH ABG pCO2 at Pt Temp ABG pO2 at Pt Temp ABG HCO3 ABG O2 Sat (Measured) ABG O2 Content ABG Base Excess Kaushal Test O2 Delivery Device Oxygen Flow Rate Vent Mode Vent Rate Mechanical Rate PEEP Pressure Support Vent Sodium 145 Potassium 3.0 L Chloride 113 H Carbon Dioxide 24 Anion Gap 8 BUN 7 Creatinine 0.6 L D Creat Clearance w eGFR > 60 Random Glucose 113 H Calcium 8.0 L Total Bilirubin 0.3 D AST 42 H ALT 54 Alkaline Phosphatase 235 H Total Protein 6.6 Albumin 2.5 L ASSESSMENT AND PLAN: Acute Hypoxic Respiratory Failure Pneumonia/Sepsis Lactic Acidosis (?) Acute Pulmonary Edema Elevated LFTs Mental Retardation Seizure Disorder Functional Quadriplegia - ABX for pneumonia to cover aspiration - Follow cultures - Monitor off IVF - Sedation vacation and SBTs as tolerated - DVT/GI prophylaxis - Enteral feeds Dr Price CCTime 35"
[2016-06-29] MEDS ORDERED: POTASSIUM CHLORIDE 40 MEQ/30 ML UNIT DOSE CUP ONE (10:06)
[2016-06-29] MEDS ORDERED: POTASSIUM CHLORIDE 40 MEQ/30 ML UNIT DOSE CUP PO ONE (10:15)
[2016-06-29] MEDS: PROPOFOL 100 ML IV SCH (14:00)
[2016-06-29] MEDS: SODIUM CHLORIDE 1,000 ML IV SCH (17:03)
[2016-06-29] MEDS: CHLORHEXIDINE GLUCONATE 4% CLEANSER FOR DECOLONIZATION TP SCH (21:33)
[2016-06-30] MEDS: ALBUTEROL SO4 2.5/IPRATROPIUM 0.5 INH SOL 3 ML VIAL.NEB. NEB SCH ×5 (00:11→23:40)
[2016-06-30] MEDS: PIPERACILLIN/TAZOB 3.375 GM 50 ML IVPB SCH ×3 (02:00→17:43)
[2016-06-30] MEDS: clonazePAM 0.5 MG TABLET GT SCH ×3 (05:23→21:17)
[2016-06-30] MEDS: PROPOFOL 100 ML IV SCH ×2 (05:34→15:12)
[2016-06-30] MEDS: SODIUM CHLORIDE 1,000 ML IV SCH (05:36)
[2016-06-30 06:17] LABS: MCH 36.4 pg (25.7-33.7); MCHC 35.4 g/dl (32.0-35.9); MEAN CELL VOLUME 102.8 fl (80-96); MEAN PLT VOLUME 10.5 fl (7.5-11.1); RDW 17.1 % (11.9-15.9); WHITE BLOOD COUNT 10.9 K/mm3 (4.0-10.0)
[2016-06-30 07:03] LABS: ALBUMIN 2.5 g/dl (3.4-5.0); ALK PHOS 219 U/L (45-117); ANION GAP 12 (8-16); BILIRUBIN,TOTAL 0.3 mg/dL (0.2-1.0); CO2 24 mmol/L (21-32); CREATININE 0.5 mg/dL (0.7-1.3); GLUCOSE,RANDOM 100 mg/dL (74-106); MAGNESIUM 1.8 mg/dL (1.8-2.4); PHOSPHOROUS 4.5 mg/dL (2.5-4.9); SGPT/ALT 49 U/L (12-78); TOT PROT 6.3 g/dl (6.4-8.2)
[2016-06-30 07:09] LABS: SGOT/AST 51 U/L (15-37)
[2016-06-30 07:45] LABS: ARTERIAL BLD GAS O2 SATURATION 94.5 % (90-98.9); ARTERIAL BLOOD GAS BASE EXCESS 0.2 meq/l (-2-2); ARTERIAL BLOOD GAS HCO3 23.6 meq/L (22-26); ARTERIAL BLOOD GAS PO2 69.8 mmHg (80-100); ARTERIAL BLOOD GAS pH 7.44 (7.35-7.45)
[2016-06-30 07:58] LABS: ALLENS TEST POSITIVE; ART PUNCT SITE RIGHT RADIAL
[2016-06-30 07:59] LABS: LPM/O2% 40; MECH. VENT. YES; PT. ON O2? YES; TYPE OF O2 MECH VENT; VENT RATE 12; VT/PRESS 350
[2016-06-30] MEDS ORDERED: PT OWN MED DRAWER 7, Y5N ONE ×2 (10:17→20:59)
[2016-06-30] MEDS: cloBAZam 10 MG TABLET PO SCH (10:19)
[2016-06-30] MEDS: BISACODYL 10 MG SUPP.RECT RC SCH (10:19)
[2016-06-30] MEDS: CHLORHEXIDINE GLUCONATE 0.12% 15ML CUP MM SCH ×2 (10:19→21:17)
[2016-06-30] MEDS: MUPIROCIN 2% TOPICAL OINTMENT FOR DECOLONIZATION NS SCH ×2 (10:19→21:17)
[2016-06-30] MEDS: MULTIVITAMIN GT SCH (10:19)
[2016-06-30] MEDS: ENOXAPARIN NA (PORCINE) 40 MG/0.4 ML DISP.SYRIN SQ SCH (10:19)
[2016-06-30] MEDS: [UNRECOGNIZED DRUG - OTHER] GT SCH (10:19)
[2016-06-30] MEDS: PHENobarbital 15 MG TABLET PO SCH ×2 (10:20→21:17)
[2016-06-30 10:27] LABS: PLATELET COUNT 105 K/MM3 (134-434); PLATELET ESTIMATE DECREASED (NORMAL)
--- NOTE | 2016-06-30 11:40 | PN ---
Progress Note (short form) - Note Progress Note: Patient seen and examined in the ICU. Remains intubated on 40% FiO2. Lightly sedated on propofol. No pressors. CXR: Rotated / ETT above the thoracic inlet / no gross change Intake & Output 06/27/16 06/28/16 06/29/16 06/30/16 23:59 23:59 23:59 23:59 Intake Total 2650 3192 3151.8 1570 Output Total 1900 1875 1950 900 Balance 750 1317 1201.8 670 Weight 94 lb 9.253 oz 94 lb 9.253 oz 96 lb 96 lb 3.2 oz Last Vital Signs Temp Pulse Resp BP Pulse Ox 97.2 F L 74 21 99/54 100 06/30/16 06:00 06/30/16 10:00 06/30/16 10:00 06/30/16 06:00 06/30/16 11:23 Active Medications Acetaminophen (Tylenol Suppository -) 650 mg CO Q4H PRN PRN Reason: FEVER OR PAIN Albuterol/Ipratropium (Duoneb -) 1 amp NEB QIDR [facility] Last Admin: 06/30/16 11:05 Dose: 1 amp Bisacodyl (Dulcolax Suppository -) 10 mg RC DAILY [facility] Last Admin: 06/30/16 10:19 Dose: 10 mg Chlorhexidine Gluconate (Hibiclens For Decolonization -) 1 applic TP HS [facility] Last Admin: 06/29/16 21:33 Dose: 1 applic Chlorhexidine Gluconate (Peridex -) 15 ml MM BID [facility] Last Admin: 06/30/16 10:19 Dose: 15 ml Clobazam (Onfi -) 10 mg PO DAILY [facility] Last Admin: 06/30/16 10:19 Dose: 10 mg Clonazepam (Klonopin -) 0.5 mg GT TID [facility] Last Admin: 06/30/16 05:23 Dose: 0.5 mg Enoxaparin Sodium (Lovenox -) 40 mg SQ DAILY [facility] Last Admin: 06/30/16 10:19 Dose: 40 mg Propofol (Diprivan -) 100 mls @ 1.257 mls/hr IV TITR JORGE; 5 MCG/KG/MIN PRN Reason: Protocol Last Titration: 06/30/16 10:21 Dose: 5 mcg/kg/min Piperacillin Sod/Tazobactam Sod (Zosyn 3.375gm Ivpb (Pre-Docked)) 50 mls @ 100 mls/hr IVPB Q8H-IV JORGE PRN Reason: Protocol Last Admin: 06/30/16 10:18 Dose: 100 mls/hr Sodium Chloride (Normal Saline -) 1,000 mls @ 75 mls/hr IV ASDIR [facility] Last Admin: 06/30/16 05:36 Dose: 75 mls/hr Mupirocin (Bactroban Ointment (For Decolonization) -) 1 applic NS BID [facility] Stop: 07/01/16 21:59 Last Admin: 06/30/16 10:19 Dose: 1 applic Ondansetron HCl (Zofran Injection) 4 mg IVPB Q6H PRN PRN Reason: NAUSEA Phenobarbital (Phenobarbital -) 15 mg PO BID [facility] Last Admin: 06/30/16 10:20 Dose: 15 mg Gen: Intubated, sedated Heart: RRR Lung: Coarse rhonchi bases -> Right > Left Abd: soft, notender Ext: distal edema, contracted Laboratory Results - last 24 hr 06/30/16 06/30/16 06/30/16 05:00 05:00 07:55 WBC 10.9 H RBC 2.67 L Hgb 9.7 L Hct 27.5 L MCV 102.8 H MCHC 35.4 RDW 17.1 H Plt Count 105 L D MPV 10.5 Platelet Estimate Decreased Puncture Site Right radial ABG pH 7.44 ABG pCO2 at Pt Temp 35.4 ABG pO2 at Pt Temp 69.8 L D ABG HCO3 23.6 ABG O2 Sat (Measured) 94.5 ABG O2 Content 13.0 L ABG Base Excess 0.2 Kaushal Test Positive O2 Delivery Device Mech vent Oxygen Flow Rate 40 Vent Mode A/c Vent Rate 12 Mechanical Rate Yes PEEP 5.0 Pressure Support Vent 350 Sodium 146 H Potassium 3.5 Chloride 110 H Carbon Dioxide 24 Anion Gap 12 BUN 8 Creatinine 0.5 L Creat Clearance w eGFR > 60 Random Glucose 100 Calcium 8.0 L Phosphorus 4.5 D Magnesium 1.8 Total Bilirubin 0.3 AST 51 H D ALT 49 Alkaline Phosphatase 219 H Total Protein 6.3 L Albumin 2.5 L ASSESSMENT AND PLAN: Acute Hypoxic Respiratory Failure Pneumonia/Sepsis Lactic Acidosis (?) Acute Pulmonary Edema Elevated LFTs Mental Retardation Seizure Disorder Functional Quadriplegia - ETT to be adjusted -> Follow CXR - ABX for pneumonia - Monitor off IVF - Sedation vacation and SBTs as tolerated - DVT/GI prophylaxis - Enteral feeds Dr Price CCTime 35"
--- NOTE | 2016-06-30 12:18 | PN ---
Physical Exam: SUBJECTIVE: Patient seen and examined at bedside in the ICU. Intubated and sedated. OBJECTIVE: Patient was re-intubated on last Thursday night. Intubation day 3. Vent Settings: AC, TV 350, FiO2 40%, RR 12, PEEP 5 Now sedated on propofol gtt at 15mcg/kg Vital Signs Period Temp Pulse Resp BP Sys/Linares Pulse Ox Last 24 Hr 97.2 F-99.2 F 50-88 12-24 99-112/45-61 97-100 GENERAL: non-verbal, blind, severely mentally retarded, does not follow command , on mechanical ventilation (as settings above). EYES: Pupils equal, non-reactive, rotatory nystagmus LUNGS: rhonchi in L upper lung field HEART: RRR without murmur, gallop, rub ABDOMEN: Soft, nontender, not distended, normoactive bowel sounds, no guarding, no rebound, no masses. +PEG tube EXTREMITIES: contracted in position. No peripheral edema. Laboratory Results - last 24 hr 06/30/16 06/30/16 06/30/16 05:00 05:00 07:55 WBC 10.9 H RBC 2.67 L Hgb 9.7 L Hct 27.5 L MCV 102.8 H MCHC 35.4 RDW 17.1 H Plt Count 105 L D MPV 10.5 Platelet Estimate Decreased Puncture Site Right radial ABG pH 7.44 ABG pCO2 at Pt Temp 35.4 ABG pO2 at Pt Temp 69.8 L D ABG HCO3 23.6 ABG O2 Sat (Measured) 94.5 ABG O2 Content 13.0 L ABG Base Excess 0.2 Kaushal Test Positive O2 Delivery Device Mech vent Oxygen Flow Rate 40 Vent Mode A/c Vent Rate 12 Mechanical Rate Yes PEEP 5.0 Pressure Support Vent 350 Sodium 146 H Potassium 3.5 Chloride 110 H Carbon Dioxide 24 Anion Gap 12 BUN 8 Creatinine 0.5 L Creat Clearance w eGFR > 60 Random Glucose 100 Calcium 8.0 L Phosphorus 4.5 D Magnesium 1.8 Total Bilirubin 0.3 AST 51 H D ALT 49 Alkaline Phosphatase 219 H Total Protein 6.3 L Albumin 2.5 L Active Medications Generic Name Dose Route Start Last Admin Trade Name Freq PRN Reason Stop Dose Admin Acetaminophen 650 mg 06/26/16 12:21 Tylenol Suppository - [place] Q4H PRN FEVER OR PAIN Albuterol/Ipratropium 1 amp 06/26/16 18:00 06/30/16 11:05 Duoneb - NEB 1 amp QIDR JORGE Administration Bisacodyl 10 mg 06/27/16 10:00 06/30/16 10:19 Dulcolax Suppository - RC 10 mg DAILY JORGE Administration Chlorhexidine Gluconate 1 applic 06/26/16 22:00 06/29/16 21:33 Hibiclens For Decolonization - TP 1 applic HS JORGE Administration Chlorhexidine Gluconate 15 ml 06/28/16 10:00 06/30/16 10:19 Peridex - MM 15 ml BID JORGE Administration Clobazam 10 mg 06/27/16 10:00 06/30/16 10:19 Onfi - PO 10 mg DAILY JORGE Administration Clonazepam 0.5 mg 06/26/16 14:00 06/30/16 05:23 Klonopin - GT 0.5 mg TID JORGE Administration Enoxaparin Sodium 40 mg 06/27/16 10:00 06/30/16 10:19 Lovenox - SQ 40 mg DAILY JORGE Administration Propofol 100 mls @ 1.257 mls/hr 06/26/16 12:30 06/30/16 10:21 Diprivan - IV 5 mcg/kg/min TITR JORGE Titration Protocol 5 MCG/KG/MIN Piperacillin Sod/Tazobactam Sod 50 mls @ 100 mls/hr 06/26/16 18:00 06/30/16 10: 18 Zosyn 3.375gm Ivpb (Pre-Docked) IVPB 100 mls/hr Q8H-IV JORGE Administration Protocol Sodium Chloride 1,000 mls @ 75 mls/hr 06/28/16 14:50 06/30/16 05:36 Normal Saline - IV 75 mls/hr ASDIR JORGE Administration Mupirocin 1 applic 06/26/16 22:00 06/30/16 10:19 Bactroban Ointment (For Decolonization) - NS 07/01/16 21:59 1 applic BID JORGE Administration Ondansetron HCl 4 mg 06/26/16 12:21 Zofran Injection IVPB Q6H PRN NAUSEA Phenobarbital 15 mg 06/26/16 22:00 06/30/16 10:20 Phenobarbital - PO 15 mg BID JORGE Administration ABG Results ABG pH 7.44 (7.35-7.45) 06/30/16 07:55 ABG pCO2 at Pt Temp 35.4 mmHg (35-45) 06/30/16 07:55 ABG pO2 at Pt Temp 69.8 mmHg (80-100) L D 06/30/16 07:55 ABG HCO3 23.6 meq/L (22-26) 06/30/16 07:55 ABG O2 Sat (Measured) 94.5 % (90-98.9) 06/30/16 07:55 ABG O2 Content 13.0 % vol (15-22) L 06/30/16 07:55 ABG Base Excess 0.2 meq/l (-2-2) 06/30/16 07:55 Microbiology 06/28/16 10:00 Sputum - Endotrachea Suction/Ventilator Gram Stain - Final 06/28/16 10:00 Sputum - Endotrachea Suction/Ventilator Sputum Culture - Final Diphtheroid/Corynebacterium Citrobacter Koseri ASSESSMENT/PLAN: 21 yo M [place] resident with history of herpetic encephalitis, profound mental retardation, epilepsy, chronic hypothermia, asthma admitted to the ICU for acute respiratory failure. Neuro - baseline: non-verbal, legally blind, no gag reflex - cont. konopin, clobazam, phenobarbital - low body temp at baseline * ahsan cruz PRN ID - WBC trending down - cultures grew diptheroid/corynebacterium (resistant to zosyn) *?colonization - ID consult Pulm - still intubated * ETT needs to be adjusted * pt previously on ventimask 5L during day and bipap at night at [place] - maintain O2 sat > 90% GI - PEG tube intact Renal/ - stable Prophylaxis - DVT: lovenox - GI: not indicated Nutrition - tube feed promote Dispo: cont. to monitor in ICU Visit type - Emergency Visit Emergency Visit: No - New Patient This patient is new to me today: No - Critical Care Critical Care patient: Yes Total Critical Care Time (in minutes): 35 Critical Care Statement: The care of this patient involved high complexity decision making to prevent further life threatening deterioration of the patient 's condition and/or to evalute & treat vital organ system(s) failure or risk of failure.
--- NOTE | 2016-06-30 14:25 | PN ---
Progress Note (short form) - Note Progress Note: ID consult dictated D/W icu resident 21 year old developmentally delayed patient from [place] admitted on 06/26 with hypoxia and respiratory distress he was intubated and sent to ICU he was extubated 06/27 and reintubated the same day the nurse reports copious blood tinged clear secretions I am asked to see him for positive sputum culture clinically WBC has improved and oxygen demand is unchanged unable to evaluate today's cxray as pt is rotated respiratory failure pneumonia suggest repeat cxray today if improved would continue zosyn no need to treat sputum isolate if film is worse would consider adding levaquin 500 daily
--- NOTE | 2016-06-30 14:54 | PN ---
Physical Exam: SUBJECTIVE: Pt was seen and examined in the ICU. He is awake and remains intubated. Current vent Settings: AC, TV 350, FiO2 40%, RR 12, PEEP 5 OBJECTIVE: GENERAL: The patient is awake, opens eyes, remains intubated, legally blind HEAD: Normal with no signs of trauma. LUNGS: Breath sounds equal, clear to auscultation bilaterally, no wheezes, no crackles. HEART:Sinus bradycardia 60s ABDOMEN: Soft, nontender, PEG tube in place. EXTREMITIES: Contracted. 2+ pulses, warm, well-perfused, localized edema to left foot NEUROLOGICAL: nonverbal, unable to follow commands, severe MR SKIN: Warm, dry, capillary refill <3 seconds, no rashes or lesions noted, position Vital Signs Period Temp Pulse Resp BP Sys/Linares Pulse Ox Last 24 Hr 97.2 F-99.8 F 47-90 12-24 99-118/45-75 97-100 Laboratory Results - last 24 hr 06/30/16 06/30/16 06/30/16 05:00 05:00 07:55 WBC 10.9 H RBC 2.67 L Hgb 9.7 L Hct 27.5 L MCV 102.8 H MCHC 35.4 RDW 17.1 H Plt Count 105 L D MPV 10.5 Platelet Estimate Decreased Puncture Site Right radial ABG pH 7.44 ABG pCO2 at Pt Temp 35.4 ABG pO2 at Pt Temp 69.8 L D ABG HCO3 23.6 ABG O2 Sat (Measured) 94.5 ABG O2 Content 13.0 L ABG Base Excess 0.2 Kaushal Test Positive O2 Delivery Device Mech vent Oxygen Flow Rate 40 Vent Mode A/c Vent Rate 12 Mechanical Rate Yes PEEP 5.0 Pressure Support Vent 350 Sodium 146 H Potassium 3.5 Chloride 110 H Carbon Dioxide 24 Anion Gap 12 BUN 8 Creatinine 0.5 L Creat Clearance w eGFR > 60 Random Glucose 100 Calcium 8.0 L Phosphorus 4.5 D Magnesium 1.8 Total Bilirubin 0.3 AST 51 H D ALT 49 Alkaline Phosphatase 219 H Total Protein 6.3 L Albumin 2.5 L Active Medications Generic Name Dose Route Start Last Admin Trade Name Freq PRN Reason Stop Dose Admin Acetaminophen 650 mg 06/26/16 12:21 Tylenol Suppository - DC Q4H PRN FEVER OR PAIN Albuterol/Ipratropium 1 amp 02/16/17 18:00 06/30/16 11:05 Duoneb - NEB 1 amp QIDR JORGE Administration Bisacodyl 10 mg 06/27/16 10:00 06/30/16 10:19 Dulcolax Suppository - RC 10 mg DAILY JORGE Administration Chlorhexidine Gluconate 1 applic 06/26/16 22:00 06/29/16 21:33 Hibiclens For Decolonization - TP 1 applic HS JORGE Administration Chlorhexidine Gluconate 15 ml 06/28/16 10:00 06/30/16 10:19 Peridex - MM 15 ml BID JORGE Administration Clobazam 10 mg 06/27/16 10:00 06/30/16 10:19 Onfi - PO 10 mg DAILY JORGE Administration Clonazepam 0.5 mg 06/26/16 14:00 06/30/16 05:23 Klonopin - GT 0.5 mg TID JORGE Administration Enoxaparin Sodium 40 mg 06/27/16 10:00 06/30/16 10:19 Lovenox - SQ 40 mg DAILY JORGE Administration Propofol 100 mls @ 1.257 mls/hr 06/26/16 12:30 06/30/16 10:21 Diprivan - IV 5 mcg/kg/min TITR JORGE Titration Protocol 5 MCG/KG/MIN Piperacillin Sod/Tazobactam Sod 50 mls @ 100 mls/hr 06/26/16 18:00 06/30/16 10: 18 Zosyn 3.375gm Ivpb (Pre-Docked) IVPB 100 mls/hr Q8H-IV JORGE Administration Protocol Mupirocin 1 applic 06/26/16 22:00 06/30/16 10:19 Bactroban Ointment (For Decolonization) - NS 07/01/16 21:59 1 applic BID JORGE Administration Ondansetron HCl 4 mg 06/26/16 12:21 Zofran Injection IVPB Q6H PRN NAUSEA Phenobarbital 15 mg 06/26/16 22:00 06/30/16 10:20 Phenobarbital - PO 15 mg BID JORGE Administration ASSESSMENT/PLAN: Patient is a 21 year old male with PMHx of mental retardation, functional quadriplegia, seizure disorder, asthma, chronic hypothermia and herpes encephalopathy. He was brought into the ED on 06/26/16 with hypoxia and respiratory distress. Patient was extubated 06/27, went into respiratory distress and had to be intubated the same day. He remains intubated, potential for weaning today. At the [facility], he is on ventimask during day and bipap at night. ID: Severe Sepsis - Met sepsis criteria on admission (Leukocytosis 11.3, tachycardia 110-120s, Lactic acid 6.742) - now resolved Assessment/Plan: Leukocytosis improving, Tachycardia resolved, Lactic acidosis resolved Sepsis likely secondary to aspiration pneumonia On Zosyn started 06/26, WBC trending down Blood cultures with no growth to date Sputum cultures with diptheroid corynecbacterium continue IV zosyn as per ID. Maintain oxygen saturations > 90% Pulmonary: Hypoxic respiratory failure - acute Assessment/Plan: Remains in tubated re-intubated on 06/27, todays'a ABGs with improvement Duonebs as needed. Sputum cultures with diptheroid corynecbacterium GI: Transaminitis - acute Assessment/Plan: AST/ALT elevated, monitor trend Peg tub intact Neurology: Chronic hypothermia Assessment/Plan: Hypothermia protocol, baseline 94F no treatment unless falls below 94F Tenisha hugger as needed Seizures Assessment/Plan: On Clonazapam, Clobazam, phenobartital No reported seizures since admission Seizure precautions Hematology: Anemia Assessment/Plan: Monitor trend F.E.N. Fluids: no IVF Electrolytes: hypernatremia, monitor Nutrition: Peg tube feeds Prophylaxis: DVT: Prophylaxis: SCDs bilaterally, Lovenox 40mg daily GI Prophylaxis: Protonix 40mg Disposition: Patient requires continued ICU monitoring. Full Code. Visit type - Emergency Visit Emergency Visit: Yes ED Registration Date: 06/26/16 Care time: The patient presented to the Emergency Department on the above date and was hospitalized for further evaluation of their emergent condition. - New Patient This patient is new to me today: Yes Date on this admission: 08/29/16 - Critical Care Critical Care patient: Yes Total Critical Care Time (in minutes): 45 Critical Care Statement: The care of this patient involved high complexity decision making to prevent further life threatening deterioration of the patient 's condition and/or to evalute & treat vital organ system(s) failure or risk of failure.
--- NOTE | 2016-06-30 16:29 | CONS ---
DATE OF CONSULTATION: DATE OF DICTATION: 06/30/2016 INFECTIOUS DISEASE CONSULTATION REQUESTING PHYSICIAN: ICU Team CONSULTING PHYSICIAN: Ozzy Thayer M.D. HISTORY OF PRESENT ILLNESS: This is a 21-year-old man with developmental delay who was brought to the emergency room from the [facility] with respiratory distress and hypoxia. He was noted to be hypoxic. He had a partial seizure in the ambulance, and he was intubated in the emergency room. He was admitted on the . He was given a nebulizer prior to calling for the ambulance, and he was sent to the hospital. He was intubated and started on Zosyn for possible aspiration pneumonia. He had influenza screen done that was negative, a legionella urinary antigen that was negative. He was admitted on the . He was extubated on the , and intubated later the same day. He has been maintained on FiO2 of 40%, which is still on. His white count which was elevated as high at 17 is now 10,000. I am asked to see him because sputum cultures done on the is growing diphtheroids, and citrobacter, and concern is whether he needs his antibiotics changed. Patient is unable to give any history. He had a chest x-ray done this morning that is rotated and needs to be repeated. PAST MEDICAL HISTORY: Notable for profound mental retardation, herpetic meningoencephalitis. He has a history of cerebral palsy. He has history of folliculitis in the past and GERD. PAST SURGICAL HISTORY: Notable for bilateral hip pinning. He has a G-tube. He also has a history of seizure disorder. He has been treated multiple times for pneumonia, the last which appears to be in 2012. Surgical history is also notable for left orchiectomy. ALLERGIES: He has no known drug allergies. MEDICATION: As an outpatient include phenobarbital, clonazepam, lamotrigine, Fibrostat, multivitamins, acyclovir, ranitidine, baclofen, acidophilus, fluticasone nasal spray. He has a bowel regimen. FAMILY HISTORY: Noncontributory. SOCIAL HISTORY: He has resided in institutional care since childbirth. PHYSICAL EXAMINATION: General: He is resting comfortably in bed. HEENT: Normocephalic. He is orally intubated. Lungs: Scattered rhonchi throughout. Heart: Regular rate and rhythm. Abdomen: Soft. G-tube site is clean. Extremities: Without edema. Skin: He has no skin breakdown. LABORATORY: White count 10.9, hemoglobin 9.7, platelets 105, INR 1.1. His ABG is pH of 7.544, his BUN and creatinine are 8 and 0.5. AST is 51, alkaline phosphatase is 219. His urinalysis is notable for 2+ protein, and x-ray being repeated. IMPRESSION: In summary, this is a 21-year-old man developmentally delayed from [facility] admitted with hypoxia and respiratory distress. He was intubated and sent to the ICU. I am asked to see him for positive sputum culture, clinically his white count has improved, his oxygen is unchanged. I am unable to evaluate today's x-ray. I would suggest we repeat a chest x-ray. If improved, would continue Zosyn and would not treat the sputum isolate.If the film is worse, would consider switch to Levaquin based on the sensitivities known. I would treat the citrobacter, I would not treat the carinii bacterium or diphtheroids in the sputum culture. Further recommendations to follow. OZZY THAYER M.D. [id number] MTDD
[2016-06-30] MEDS: CHLORHEXIDINE GLUCONATE 4% CLEANSER FOR DECOLONIZATION TP SCH (21:17)
[2016-07-01] MEDS: PIPERACILLIN/TAZOB 3.375 GM 50 ML IVPB SCH ×3 (01:07→19:20)
[2016-07-01 05:54] LABS: BASOPHIL 0.4 % (0-2.0); EOSINOPHIL 3.1 % (0-4.5); MCH 36.3 pg (25.7-33.7); MCHC 35.4 g/dl (32.0-35.9); MEAN CELL VOLUME 102.5 fl (80-96); MEAN PLT VOLUME 10.5 fl (7.5-11.1); NEUTROPHILS 37.9 % (42.8-82.8); PLATELET COUNT 206 K/MM3 (134-434); RDW 16.8 % (11.9-15.9); WHITE BLOOD COUNT 9.6 K/mm3 (4.0-10.0)
[2016-07-01] MEDS: clonazePAM 0.5 MG TABLET GT SCH ×3 (05:58→21:35)
[2016-07-01] MEDS: ALBUTEROL SO4 2.5/IPRATROPIUM 0.5 INH SOL 3 ML VIAL.NEB. NEB SCH ×3 (06:13→19:35)
[2016-07-01 06:16] LABS: ALBUMIN 2.7 g/dl (3.4-5.0); ALK PHOS 278 U/L (45-117); ANION GAP 11 (8-16); BILIRUBIN,TOTAL 0.5 mg/dL (0.2-1.0); CO2 25 mmol/L (21-32); CREATININE 0.6 mg/dL (0.7-1.3); GLUCOSE,RANDOM 71 mg/dL (74-106); MAGNESIUM 1.4 mg/dL (1.8-2.4); PHOSPHOROUS 5.2 mg/dL (2.5-4.9); SGOT/AST 52 U/L (15-37); SGPT/ALT 54 U/L (12-78)
[2016-07-01 07:34] LABS: ARTERIAL BLD GAS O2 SATURATION 99.4 % (90-98.9); ARTERIAL BLOOD GAS BASE EXCESS 1.3 meq/l (-2-2); ARTERIAL BLOOD GAS HCO3 24.7 meq/L (22-26); ARTERIAL BLOOD GAS pH 7.45 (7.35-7.45)
[2016-07-01 07:35] LABS: ALLENS TEST POSITIVE; ART PUNCT SITE LEFT RADIAL; LPM/O2% 40; MECH. VENT. YES; PT. ON O2? RRA; TYPE OF O2 VENT; VENT RATE 12; VT/PRESS 350
[2016-07-01] MEDS ORDERED: MAGNESIUM SULF 50% (8.12 MEQ/2 ML-1 GM VIAL) IVPB ONE (08:30)
[2016-07-01] MEDS: ENOXAPARIN NA (PORCINE) 40 MG/0.4 ML DISP.SYRIN SQ SCH (09:55)
[2016-07-01] MEDS: CHLORHEXIDINE GLUCONATE 0.12% 15ML CUP MM SCH ×2 (09:55→21:35)
[2016-07-01] MEDS: MUPIROCIN 2% TOPICAL OINTMENT FOR DECOLONIZATION NS SCH (09:56)
[2016-07-01] MEDS: BISACODYL 10 MG SUPP.RECT RC SCH (09:56)
[2016-07-01] MEDS: cloBAZam 10 MG TABLET PO SCH (09:56)
[2016-07-01] MEDS: PHENobarbital 15 MG TABLET PO SCH (09:56)
[2016-07-01] MEDS: MULTIVITAMIN GT SCH (09:58)
[2016-07-01] MEDS ORDERED: PT OWN MED DRAWER 7, Y5N ONE ×2 (09:58→17:44)
[2016-07-01] MEDS: [UNRECOGNIZED DRUG - OTHER] GT SCH (09:58)
--- NOTE | 2016-07-01 10:10 | PN ---
Progress Note (short form) - Note Progress Note: resting comfortably remains intubated Vital Signs Period Temp Pulse Resp BP Sys/Linares Pulse Ox Last 24 Hr 99 F-99.9 F 43-60 12-19 93-108/45-66 95-100 cor-rrr lungs decreased bs at bases abd soft,+GT ext no edema CBC, BMP 07/01/16 05:00 07/01/16 05:00 Current Medications Acetaminophen (Tylenol Suppository -) [address] Q4H PRN PRN Reason: FEVER OR PAIN Albuterol/Ipratropium (Duoneb -) 1 amp NEB QIDR [facility] Last Admin: 07/01/16 06:13 Dose: 1 amp Bisacodyl (Dulcolax Suppository -) 10 mg RC DAILY [facility] Last Admin: 07/01/16 09:56 Dose: 10 mg Chlorhexidine Gluconate (Hibiclens For Decolonization -) 1 applic TP HS [facility] Last Admin: 06/30/16 21:17 Dose: 1 applic Chlorhexidine Gluconate (Peridex -) 15 ml MM BID [facility] Last Admin: 07/01/16 09:55 Dose: 15 ml Clobazam (Onfi -) 10 mg PO DAILY [facility] Last Admin: 07/01/16 09:56 Dose: 10 mg Clonazepam (Klonopin -) 0.5 mg GT TID [facility] Last Admin: 07/01/16 05:58 Dose: 0.5 mg Enoxaparin Sodium (Lovenox -) 40 mg SQ DAILY [facility] Last Admin: 07/01/16 09:55 Dose: 40 mg Propofol (Diprivan -) 100 mls @ 1.257 mls/hr IV TITR JORGE; 5 MCG/KG/MIN PRN Reason: Protocol Last Titration: 07/01/16 08:00 Dose: 0 mcg/kg/min Piperacillin Sod/Tazobactam Sod (Zosyn 3.375gm Ivpb (Pre-Docked)) 50 mls @ 100 mls/hr IVPB Q8H-IV JORGE PRN Reason: Protocol Last Admin: 07/01/16 09:54 Dose: 100 mls/hr Pantoprazole Sodium (Protonix 40mg Ivpb (Pre-Docked)) 100 mls @ 200 mls/hr IVPB DAILY [facility] Mupirocin (Bactroban Ointment (For Decolonization) -) 1 applic NS BID [facility] Stop: 07/01/16 21:59 Last Admin: 07/01/16 09:56 Dose: 1 applic Ondansetron HCl (Zofran Injection) 4 mg IVPB Q6H PRN PRN Reason: NAUSEA Phenobarbital (Phenobarbital -) 15 mg PO BID [facility] Last Admin: 07/01/16 09:56 Dose: 15 mg cxray unchanged a/p resp failure pneumonia wbc normal infiltrate stable continue zosyn if worsens clinically with fever or worsening infiltrate add levaquin Problem List - Problems (1) Acute and chronic respiratory failure with hypoxia Code(s): J96.21 - ACUTE AND CHRONIC RESPIRATORY FAILURE WITH HYPOXIA (2) Aspiration pneumonia Code(s): J69.0 - PNEUMONITIS DUE TO INHALATION OF FOOD AND VOMIT
[2016-07-01] MEDS: PANTOPRAZOLE SODIUM 100 ML IVPB SCH (10:56)
--- NOTE | 2016-07-01 12:36 | PN ---
Teaching Attending Note Name of Resident: Ramon Dia ATTENDING PHYSICIAN STATEMENT I saw and evaluated the patient. I reviewed the resident's note and discussed the case with the resident. I agree with the resident's findings and plan as documented. SUBJECTIVE: Patient seen and examined in the ICU. Remains intubated on 40% FiO2. Lightly sedated on propofol. No pressors. CXR: Rotated / ETT above the thoracic inlet / mildly improved Intake & Output 06/28/16 06/29/16 06/30/16 07/01/16 23:59 23:59 23:59 23:59 Intake Total 3192 3151.8 2414 848.8 Output Total 1875 1950 2450 600 Balance 1317 1201.8 -36 248.8 Weight 94 lb 9.253 oz 96 lb 96 lb 3.2 oz 98 lb 3.2 oz Last Vital Signs Temp Pulse Resp BP Pulse Ox 99.7 F H 46 L 12 100/45 95 07/01/16 10:00 07/01/16 12:00 07/01/16 12:00 07/01/16 12:00 07/01/16 08:34 Active Medications Acetaminophen (Tylenol Suppository -) 650 mg OR Q4H PRN PRN Reason: FEVER OR PAIN Albuterol/Ipratropium (Duoneb -) 1 amp NEB QIDR [facility] Last Admin: 07/01/16 06:13 Dose: 1 amp Bisacodyl (Dulcolax Suppository -) 10 mg RC DAILY [facility] Last Admin: 07/01/16 09:56 Dose: 10 mg Chlorhexidine Gluconate (Hibiclens For Decolonization -) 1 applic TP HS [facility] Last Admin: 06/30/16 21:17 Dose: 1 applic Chlorhexidine Gluconate (Peridex -) 15 ml MM BID [facility] Last Admin: 07/01/16 09:55 Dose: 15 ml Clobazam (Onfi -) 10 mg PO DAILY [facility] Last Admin: 07/01/16 09:56 Dose: 10 mg Clonazepam (Klonopin -) 0.5 mg GT TID [facility] Last Admin: 07/01/16 05:58 Dose: 0.5 mg Enoxaparin Sodium (Lovenox -) 40 mg SQ DAILY [facility] Last Admin: 07/01/16 09:55 Dose: 40 mg Propofol (Diprivan -) 100 mls @ 1.257 mls/hr IV TITR JORGE; 5 MCG/KG/MIN PRN Reason: Protocol Last Titration: 07/01/16 11:37 Dose: 5 mcg/kg/min Piperacillin Sod/Tazobactam Sod (Zosyn 3.375gm Ivpb (Pre-Docked)) 50 mls @ 100 mls/hr IVPB Q8H-IV JORGE PRN Reason: Protocol Last Admin: 07/01/16 09:54 Dose: 100 mls/hr Pantoprazole Sodium (Protonix 40mg Ivpb (Pre-Docked)) 100 mls @ 200 mls/hr IVPB DAILY JORGE Last Admin: 07/01/16 10:56 Dose: 200 mls/hr Mupirocin (Bactroban Ointment (For Decolonization) -) 1 applic NS BID JORGE Stop: 07/01/16 21:59 Last Admin: 07/01/16 09:56 Dose: 1 applic Ondansetron HCl (Zofran Injection) 4 mg IVPB Q6H PRN PRN Reason: NAUSEA Phenobarbital (Phenobarbital -) 15 mg PO TID JORGE Gen: Intubated, sedated Heart: RRR Lung: Coarse rhonchi bases -> Right > Left Abd: soft, notender Ext: distal edema, contracted Laboratory Results - last 24 hr 07/01/16 07/01/16 07/01/16 05:00 05:00 07:25 WBC 9.6 RBC 2.82 L Hgb 10.2 L Hct 28.9 L MCV 102.5 H MCHC 35.4 RDW 16.8 H Plt Count 206 D MPV 10.5 Neutrophils % 37.9 L D Lymphocytes % 49.6 H D Monocytes % 9.0 D Eosinophils % 3.1 D Basophils % 0.4 D Puncture Site Left radial ABG pH 7.45 ABG pCO2 at Pt Temp 35.9 ABG pO2 at Pt Temp 156.0 H* ABG HCO3 24.7 ABG O2 Sat (Measured) 99.4 H ABG O2 Content 13.4 L ABG Base Excess 1.3 Kaushal Test Positive O2 Delivery Device Vent Oxygen Flow Rate 40 Vent Mode A/c Vent Rate 12 Mechanical Rate Yes PEEP 5.0 Pressure Support Vent 350 Sodium 145 Potassium 3.5 Chloride 109 H Carbon Dioxide 25 Anion Gap 11 BUN 7 Creatinine 0.6 L Creat Clearance w eGFR > 60 Random Glucose 71 L D Calcium 8.0 L Phosphorus 5.2 H Magnesium 1.4 L D Total Bilirubin 0.5 D AST 52 H ALT 54 Alkaline Phosphatase 278 H D Total Protein 7.0 Albumin 2.7 L ASSESSMENT AND PLAN: Acute Hypoxic Respiratory Failure Pneumonia/Sepsis Lactic Acidosis (?) Acute Pulmonary Edema Elevated LFTs Mental Retardation Seizure Disorder Functional Quadriplegia - ABX for pneumonia - Monitor off IVF - Sedation vacation and SBTs as tolerated -> Hope to extubate by tomorrow - DVT/GI prophylaxis - Enteral feeds Dr Price CCTime 35" OBJECTIVE: ASSESSMENT AND PLAN:
--- NOTE | 2016-07-01 12:57 | PN ---
Physical Exam: SUBJECTIVE: Patient seen and examined at bedside in the ICU. Intubated and sedated. OBJECTIVE: Patient was re-intubated on last Thursday night. Intubation day 4. Vent Settings: AC, TV 350, FiO2 40%, RR 12, PEEP 5 Now sedated on propofol gtt at 15mcg/kg. Tolerated sedation break today. Vital Signs Period Temp Pulse Resp BP Sys/Linares Pulse Ox Last 24 Hr 99 F-99.9 F 43-58 12-15 93-108/45-66 95-100 GENERAL: non-verbal, blind, severely mentally retarded, does not follow command , on mechanical ventilation (as settings above). EYES: Pupils equal, non-reactive, rotatory nystagmus LUNGS: CTAB HEART: RRR without murmur, gallop, rub ABDOMEN: Soft, nontender, not distended, normoactive bowel sounds, no guarding, no rebound, no masses. +PEG tube EXTREMITIES: contracted in position. No peripheral edema. ABG Results ABG pH 7.45 (7.35-7.45) 07/01/16 07:25 ABG pCO2 at Pt Temp 35.9 mmHg (35-45) 07/01/16 07:25 ABG pO2 at Pt Temp 156.0 mmHg (80-100) H* 07/01/16 07:25 ABG HCO3 24.7 meq/L (22-26) 07/01/16 07:25 ABG O2 Sat (Measured) 99.4 % (90-98.9) H 07/01/16 07:25 ABG O2 Content 13.4 % vol (15-22) L 07/01/16 07:25 ABG Base Excess 1.3 meq/l (-2-2) 07/01/16 07:25 CBCD WBC 9.6 K/mm3 (4.0-10.0) 07/01/16 05:00 RBC 2.82 M/mm3 (4.00-5.60) L 07/01/16 05:00 Hgb 10.2 GM/dL (11.7-16.9) L 07/01/16 05:00 Hct 28.9 % (35.4-49) L 07/01/16 05:00 MCV 102.5 fl (80-96) H 07/01/16 05:00 MCHC 35.4 g/dl (32.0-35.9) 07/01/16 05:00 RDW 16.8 % (11.9-15.9) H 07/01/16 05:00 Plt Count 206 K/MM3 (134-434) D 07/01/16 05:00 MPV 10.5 fl (7.5-11.1) 07/01/16 05:00 CMP Sodium 145 mmol/L (136-145) 07/01/16 05:00 Potassium 3.5 mmol/L (3.5-5.1) 07/01/16 05:00 Chloride 109 mmol/L (98-107) H 07/01/16 05:00 Carbon Dioxide 25 mmol/L (21-32) 07/01/16 05:00 Anion Gap 11 (8-16) 07/01/16 05:00 BUN 7 mg/dL (7-18) 07/01/16 05:00 Creatinine 0.6 mg/dL (0.7-1.3) L 07/01/16 05:00 Creat Clearance w eGFR > 60 (>60) 07/01/16 05:00 Calcium 8.0 mg/dL (8.5-10.1) L 07/01/16 05:00 Total Bilirubin 0.5 mg/dL (0.2-1.0) D 07/01/16 05:00 AST 52 U/L (15-37) H 07/01/16 05:00 ALT 54 U/L (12-78) 07/01/16 05:00 Alkaline Phosphatase 278 U/L (45-117) H D 07/01/16 05:00 Total Protein 7.0 g/dl (6.4-8.2) 07/01/16 05:00 Albumin 2.7 g/dl (3.4-5.0) L 07/01/16 05:00 Intake & Output 06/28/16 06/29/16 06/30/16 07/01/16 23:59 23:59 23:59 23:59 Intake Total 3192 3151.8 2414 848.8 Output Total 1875 1950 2450 600 Balance 1317 1201.8 -36 248.8 Weight 42.9 kg 43.545 kg 43.636 kg 44.543 kg Active Medications Generic Name Dose Route Start Last Admin Trade Name Freq PRN Reason Stop Dose Admin Acetaminophen 650 mg 06/26/16 12:21 Tylenol Suppository - OR Q4H PRN FEVER OR PAIN Albuterol/Ipratropium 1 amp 06/26/16 18:00 07/01/16 06:13 Duoneb - NEB 1 amp QIDR JORGE Administration Bisacodyl 10 mg 06/27/16 10:00 07/01/16 09:56 Dulcolax Suppository - RC 10 mg DAILY JORGE Administration Chlorhexidine Gluconate 1 applic 06/26/16 22:00 06/30/16 21:17 Hibiclens For Decolonization - TP 1 applic HS JORGE Administration Chlorhexidine Gluconate 15 ml 06/28/16 10:00 07/01/16 09:55 Peridex - MM 15 ml BID JORGE Administration Clobazam 10 mg 06/27/16 10:00 07/01/16 09:56 Onfi - PO 10 mg DAILY JORGE Administration Clonazepam 0.5 mg 06/26/16 14:00 07/01/16 05:58 Klonopin - GT 0.5 mg TID JORGE Administration Enoxaparin Sodium 40 mg 06/27/16 10:00 07/01/16 09:55 Lovenox - SQ 40 mg DAILY JORGE Administration Propofol 100 mls @ 1.257 mls/hr 06/26/16 12:30 07/01/16 11:37 Diprivan - IV 5 mcg/kg/min TITR JORGE Titration Protocol 5 MCG/KG/MIN Piperacillin Sod/Tazobactam Sod 50 mls @ 100 mls/hr 06/26/16 18:00 07/01/16 09: 54 Zosyn 3.375gm Ivpb (Pre-Docked) IVPB 100 mls/hr Q8H-IV JORGE Administration Protocol Pantoprazole Sodium 100 mls @ 200 mls/hr 07/01/16 10:00 07/01/16 10:56 Protonix 40mg Ivpb (Pre-Docked) IVPB 200 mls/hr DAILY JORGE Administration Mupirocin 1 applic 06/26/16 22:00 07/01/16 09:56 Bactroban Ointment (For Decolonization) - NS 07/01/16 21:59 1 applic BID JORGE Administration Ondansetron HCl 4 mg 06/26/16 12:21 Zofran Injection IVPB Q6H PRN NAUSEA Phenobarbital 15 mg 07/01/16 14:00 Phenobarbital - PO TID JORGE Microbiology 06/28/16 10:00 Sputum - Endotrachea Suction/Ventilator Gram Stain - Final 06/28/16 10:00 Sputum - Endotrachea Suction/Ventilator Sputum Culture - Final Diphtheroid/Corynebacterium Citrobacter Koseri ASSESSMENT/PLAN: 21 yo M [facility] resident with history of herpetic encephalitis, profound mental retardation, epilepsy, chronic hypothermia, asthma admitted to the ICU for acute respiratory failure. Neuro - baseline: non-verbal, legally blind, no gag reflex - cont. konopin, clobazam, phenobarbital (adjusted to TID) - low body temp at baseline * ahsan hugger PRN ID - afrebile, WBC trending down - cont. zosyn (day 6) Pulm - will attempt extubation today * pt previously on ventimask 5L during day and bipap at night at [facility] - maintain O2 sat > 90% GI - PEG tube intact Renal/ - stable Prophylaxis - DVT: lovenox - GI: not indicated Nutrition - tube feed promote Dispo: extubate today, cont. to monitor in ICU. Visit type - Emergency Visit Emergency Visit: No - New Patient This patient is new to me today: No - Critical Care Critical Care patient: Yes Total Critical Care Time (in minutes): 35 Critical Care Statement: The care of this patient involved high complexity decision making to prevent further life threatening deterioration of the patient 's condition and/or to evalute & treat vital organ system(s) failure or risk of failure.
[2016-07-01] MEDS ORDERED: PHENobarbital 15 MG TABLET PO SCH (14:00)
--- NOTE | 2016-07-01 15:16 | PN ---
Physical Exam: SUBJECTIVE: Patient seen and examined. lightly sedated on propofol gtt at 15mcg/kg. Remains intubated, potential for weaning today OBJECTIVE: Vital Signs Period Temp Pulse Resp BP Sys/Linares Pulse Ox Last 24 Hr 99 F-99.9 F 43-59 12-15 93-108/45-66 95-100 GENERAL: The opens eyes, remains intubated, legally blind - lightly sedated HEAD: Normal with no signs of trauma. LUNGS: Breath sounds equal, clear to auscultation bilaterally, no wheezes, no crackles. HEART:Sinus bradycardia 60s ABDOMEN: Soft, nontender, PEG tube in place. EXTREMITIES: Contracted. 2+ pulses, warm, well-perfused, localized edema to left foot NEUROLOGICAL: nonverbal, unable to follow commands, severe MR SKIN: Warm, dry, capillary refill <3 seconds, no rashes or lesions noted, position Laboratory Results - last 24 hr 07/01/16 07/01/16 07/01/16 05:00 05:00 07:25 WBC 9.6 RBC 2.82 L Hgb 10.2 L Hct 28.9 L MCV 102.5 H MCHC 35.4 RDW 16.8 H Plt Count 206 D MPV 10.5 Neutrophils % 37.9 L D Lymphocytes % 49.6 H D Monocytes % 9.0 D Eosinophils % 3.1 D Basophils % 0.4 D Puncture Site Left radial ABG pH 7.45 ABG pCO2 at Pt Temp 35.9 ABG pO2 at Pt Temp 156.0 H* ABG HCO3 24.7 ABG O2 Sat (Measured) 99.4 H ABG O2 Content 13.4 L ABG Base Excess 1.3 Kaushal Test Positive O2 Delivery Device Vent Oxygen Flow Rate 40 Vent Mode A/c Vent Rate 12 Mechanical Rate Yes PEEP 5.0 Pressure Support Vent 350 Sodium 145 Potassium 3.5 Chloride 109 H Carbon Dioxide 25 Anion Gap 11 BUN 7 Creatinine 0.6 L Creat Clearance w eGFR > 60 Random Glucose 71 L D Calcium 8.0 L Phosphorus 5.2 H Magnesium 1.4 L D Total Bilirubin 0.5 D AST 52 H ALT 54 Alkaline Phosphatase 278 H D Total Protein 7.0 Albumin 2.7 L Active Medications Generic Name Dose Route Start Last Admin Trade Name Freq PRN Reason Stop Dose Admin Acetaminophen 650 mg 02/16/17 12:21 Tylenol Suppository - [place] Q4H PRN FEVER OR PAIN Albuterol/Ipratropium 1 amp 06/26/16 18:00 07/01/16 06:13 Duoneb - NEB 1 amp QIDR JORGE Administration Bisacodyl 10 mg 06/27/16 10:00 07/01/16 09:56 Dulcolax Suppository - RC 10 mg DAILY JORGE Administration Chlorhexidine Gluconate 1 applic 06/26/16 22:00 06/30/16 21:17 Hibiclens For Decolonization - TP 1 applic HS JORGE Administration Chlorhexidine Gluconate 15 ml 06/28/16 10:00 07/01/16 09:55 Peridex - MM 15 ml BID JORGE Administration Clobazam 10 mg 06/27/16 10:00 07/01/16 09:56 Onfi - PO 10 mg DAILY JORGE Administration Clonazepam 0.5 mg 06/26/16 14:00 07/01/16 05:58 Klonopin - GT 0.5 mg TID JORGE Administration Enoxaparin Sodium 40 mg 06/27/16 10:00 07/01/16 09:55 Lovenox - SQ 40 mg DAILY JORGE Administration Propofol 100 mls @ 1.257 mls/hr 06/26/16 12:30 07/01/16 11:37 Diprivan - IV 5 mcg/kg/min TITR JORGE Titration Protocol 5 MCG/KG/MIN Piperacillin Sod/Tazobactam Sod 50 mls @ 100 mls/hr 06/26/16 18:00 07/01/16 09: 54 Zosyn 3.375gm Ivpb (Pre-Docked) IVPB 100 mls/hr Q8H-IV JORGE Administration Protocol Pantoprazole Sodium 100 mls @ 200 mls/hr 07/01/16 10:00 07/01/16 10:56 Protonix 40mg Ivpb (Pre-Docked) IVPB 200 mls/hr DAILY JORGE Administration Mupirocin 1 applic 06/26/16 22:00 07/01/16 09:56 Bactroban Ointment (For Decolonization) - NS 07/01/16 21:59 1 applic BID JORGE Administration Ondansetron HCl 4 mg 06/26/16 12:21 Zofran Injection IVPB Q6H PRN NAUSEA Phenobarbital 45 mg 07/01/16 22:00 Phenobarbital Liquid - GT BID [facility] ASSESSMENT/PLAN: Patient is a 21 year old male with PMHx of mental retardation, functional quadriplegia, seizure disorder, asthma, chronic hypothermia and herpes encephalopathy. He was brought into the ED on 06/26/16 with hypoxia and respiratory distress. Patient was extubated 06/27, went into respiratory distress and had to be intubated the same day. He remains intubated, potential for weaning today. At the [facility], he is on ventimask during day and bipap at night. ID: Severe Sepsis - Met sepsis criteria on admission (Leukocytosis 11.3, tachycardia 110-120s, Lactic acid 6.742) - now resolved Assessment/Plan: Leukocytosis improving, Tachycardia resolved, Lactic acidosis resolved Sepsis likely secondary to aspiration pneumonia On Zosyn started 06/26, WBC trending down Blood cultures with no growth to date Sputum cultures with diptheroid corynecbacterium continue IV zosyn as per ID. Pulmonary: Hypoxic respiratory failure - acute Assessment/Plan: Remains intubated. Attempt to be extubated today Duonebs as needed. Maintain oxygen saturations > 90% GI: Transaminitis - acute Assessment/Plan: AST/ALT elevated, monitor trend Peg tub intact, receiving continuous tube feeds Neurology: Chronic hypothermia Assessment/Plan: Hypothermia protocol, baseline 94F no treatment unless falls below 94F Tenisha hugger as needed Seizures Assessment/Plan: On Clonazapam, Clobazam, phenobartital No reported seizures since admission Seizure precautions Hematology: Anemia Assessment/Plan: Monitor trend F.E.N. Fluids: no IVF - tolerating feeds Electrolytes: hypernatremia: resolved hypomagnesium: repleted with Mag 1gram Phosphorus 5.2: monitor Nutrition: Peg tube feeds/Jevity 1.2 Prophylaxis: DVT: Prophylaxis: SCDs bilaterally, Lovenox 40mg daily GI Prophylaxis: Protonix 40mg Disposition: Patient requires continued ICU monitoring. Full Code. Visit type - Emergency Visit Emergency Visit: Yes ED Registration Date: 06/26/16 Care time: The patient presented to the Emergency Department on the above date and was hospitalized for further evaluation of their emergent condition. - New Patient This patient is new to me today: No - Critical Care Critical Care patient: Yes Total Critical Care Time (in minutes): 60 Critical Care Statement: The care of this patient involved high complexity decision making to prevent further life threatening deterioration of the patient 's condition and/or to evalute & treat vital organ system(s) failure or risk of failure. - Discharge Referral Referred to [facility] No
[2016-07-01] MEDS: PROPOFOL 100 ML IV SCH (16:17)
[2016-07-01] MEDS: CHLORHEXIDINE GLUCONATE 4% CLEANSER FOR DECOLONIZATION TP SCH (21:35)
[2016-07-01] MEDS: PHENobarbital 20 MG/5 ML UNIT-DOSE CUP GT SCH (21:35)
[2016-07-01] MEDS ORDERED: PHENOBARBITAL 20 MG/5 ML *473mL BULK BOTTLE GT SCH (22:00)
[2016-07-02] MEDS: PIPERACILLIN/TAZOB 3.375 GM 50 ML IVPB SCH (02:13)
[2016-07-02] MEDS: PROPOFOL 100 ML IV SCH ×2 (02:19→15:38)
[2016-07-02] MEDS ORDERED: SUCCINYLCHOLINE CHLORIDE 200 MG/10 ML VIAL ONE (04:37)
[2016-07-02] MEDS ORDERED: ETOMIDATE 20 MG/10 ML AMPUL IVPUSH ONE (04:37)
[2016-07-02 06:49] LABS: BASOPHIL 0.3 % (0-2.0); EOSINOPHIL 2.5 % (0-4.5); MCH 35.5 pg (25.7-33.7); MCHC 34.8 g/dl (32.0-35.9); MEAN CELL VOLUME 101.9 fl (80-96); NEUTROPHILS 64.1 % (42.8-82.8); PLATELET COUNT 217 K/MM3 (134-434); RDW 16.6 % (11.9-15.9); WHITE BLOOD COUNT 11.6 K/mm3 (4.0-10.0)
[2016-07-02] MEDS: clonazePAM 0.5 MG TABLET GT SCH ×3 (06:51→21:37)
[2016-07-02 07:10] LABS: ALBUMIN 2.8 g/dl (3.4-5.0); ANION GAP 9 (8-16); CALCIUM 8.3 mg/dL (8.5-10.1); CO2 26 mmol/L (21-32); GLUCOSE,RANDOM 118 mg/dL (74-106); MAGNESIUM 1.6 mg/dL (1.8-2.4)
[2016-07-02 07:15] LABS: ALK PHOS 253 U/L (45-117); BILIRUBIN,TOTAL 0.6 mg/dL (0.2-1.0); CREATININE 0.5 mg/dL (0.7-1.3); PHOSPHOROUS 3.9 mg/dL (2.5-4.9); SGOT/AST 37 U/L (15-37); SGPT/ALT 46 U/L (12-78); TOT PROT 7.2 g/dl (6.4-8.2)
--- NOTE | 2016-07-02 07:40 | PN ---
Progress Note, Physician Chief Complaint: ID Sats excellent on the ventilator Day 6 Zosyn - Current Medication List Current Medications: Active Medications Acetaminophen (Tylenol Suppository -) 650 mg AL Q4H PRN PRN Reason: FEVER OR PAIN Bisacodyl (Dulcolax Suppository -) 10 mg RC DAILY [facility] Last Admin: 07/01/16 09:56 Dose: 10 mg Chlorhexidine Gluconate (Hibiclens For Decolonization -) 1 applic TP HS [facility] Last Admin: 07/01/16 21:35 Dose: 1 applic Chlorhexidine Gluconate (Peridex -) 15 ml MM BID [facility] Last Admin: 07/01/16 21:35 Dose: 15 ml Clobazam (Onfi -) 10 mg PO DAILY [facility] Last Admin: 07/01/16 09:56 Dose: 10 mg Clonazepam (Klonopin -) 0.5 mg GT TID [facility] Last Admin: 07/02/16 06:51 Dose: 0.5 mg Enoxaparin Sodium (Lovenox -) 40 mg SQ DAILY [facility] Last Admin: 07/01/16 09:55 Dose: 40 mg Propofol (Diprivan -) 100 mls @ 1.257 mls/hr IV TITR JORGE; 5 MCG/KG/MIN PRN Reason: Protocol Last Admin: 07/02/16 02:19 Dose: 2.515 mls/hr Piperacillin Sod/Tazobactam Sod (Zosyn 3.375gm Ivpb (Pre-Docked)) 50 mls @ 100 mls/hr IVPB Q8H-IV JORGE PRN Reason: Protocol Last Admin: 07/02/16 02:13 Dose: 100 mls/hr Pantoprazole Sodium (Protonix 40mg Ivpb (Pre-Docked)) 100 mls @ 200 mls/hr IVPB DAILY [facility] Last Admin: 07/01/16 10:56 Dose: 200 mls/hr Ondansetron HCl (Zofran Injection) 4 mg IVPB Q6H PRN PRN Reason: NAUSEA Phenobarbital (Phenobarbital Liquid -) 40 mg GT BID [facility] Last Admin: 07/01/16 21:35 Dose: 40 mg - Objective Vital Signs: Vital Signs Temperature 98.9 F 07/02/16 06:00 Pulse Rate 52 L 07/02/16 06:00 Respiratory Rate 15 07/02/16 07:00 Blood Pressure 103/48 07/02/16 06:00 O2 Sat by Pulse Oximetry (%) 94 L 07/01/16 20:49 Constitutional: Yes: Other (INtubated) Cardiovascular: Yes: Regular Rate and Rhythm, S1, S2 Respiratory: Yes: WNL, Regular, CTA Bilaterally, Rhonchi Gastrointestinal: Yes: WNL, Normal Bowel Sounds, Soft. No: Tenderness Extremities: Yes: Other (Contracted) Labs: CBC, BMP 07/02/16 05:20 07/02/16 05:20 INR, PTT INR 1.14 (0.82-1.09) 06/26/16 10:13 Assessment/Plan Microbiology 06/28/16 10:00 Sputum - Endotrachea Suction/Ventilator Gram Stain - Final 06/28/16 10:00 Sputum - Endotrachea Suction/Ventilator Sputum Culture - Final Diphtheroid/Corynebacterium Citrobacter Koseri 06/27/16 10:00 Nasopharyngeal Swab Influenza Types A,B Antigen ([facility]) - Final 06/27/16 10:00 Nasopharyngeal Swab - Final 06/26/16 17:00 Urine For Antigen Detection Legionella Antigen - Final 06/26/16 17:00 Urine For Antigen Detection Streptococcus pneumoniae Antigen (M - Final 06/26/16 17:00 Urine - Urine Lane Urine Culture - Final NO GROWTH OBTAINED 06/26/16 10:00 Blood - Peripheral Venous Blood Culture - Final NO GROWTH AFTER 5 DAYS INCUBATION 06/26/16 10:00 Blood - Peripheral Venous Blood Culture - Final NO GROWTH AFTER 5 DAYS INCUBATION 06/29/16 09:10 Blood - Peripheral Venous Blood Culture - Preliminary NO GROWTH OBTAINED AFTER 48 HOURS, INCUBATION TO CONTINUE FOR 3 DAYS. 06/29/16 09:00 Blood - Peripheral Venous Blood Culture - Preliminary NO GROWTH OBTAINED AFTER 48 HOURS, INCUBATION TO CONTINUE FOR 3 DAYS. Laboratory Tests 07/02/16 07/02/16 05:20 05:20 WBC 11.6 H Hgb 9.6 L Plt Count 217 BUN 8 Creatinine 0.5 L Alkaline Phosphatase 253 H Assessment Respiratory failure with Pneumonia sepsis Citrobacter isolated sensitive to quinolone Plan Substitute Levofloxacin Nikki SCHWARZ
[2016-07-02] MEDS ORDERED: MAGNESIUM SULF 50% (8.12 MEQ/2 ML-1 GM VIAL) IVPB ONE (09:28)
[2016-07-02] MEDS: BISACODYL 10 MG SUPP.RECT RC SCH (11:09)
[2016-07-02] MEDS: [UNRECOGNIZED DRUG - OTHER] GT SCH (11:10)
[2016-07-02] MEDS: SCOPOLAMINE HYDROBROMIDE 1 PATCH PATCH.TD72 TD SCH (11:10)
[2016-07-02] MEDS: MULTIVITAMIN GT SCH (11:10)
--- NOTE | 2016-07-02 11:14 | PN ---
Teaching Attending Note Name of Resident: Ramon Dia ATTENDING PHYSICIAN STATEMENT I saw and evaluated the patient. I reviewed the resident's note and discussed the case with the resident. I agree with the resident's findings and plan as documented. SUBJECTIVE: Pt seen and examined in the ICU. Remains intubated, awake off sedation. +oral secretions. No fevers recorded. Attempted CPAP/PS but pt became tachypneic, tachycardic with accessory muscle use. OBJECTIVE: Last Vital Signs Temp Pulse Resp BP Pulse Ox 98.9 F 50 L 27 H 107/53 94 L 07/02/16 06:00 07/02/16 08:00 07/02/16 10:00 07/02/16 08:00 07/01/16 20:49 Intake & Output 06/29/16 06/30/16 07/01/16 07/02/16 23:59 23:59 23:59 23:59 Intake Total 3151.8 2414 1443.8 641.2 Output Total 1950 2450 600 1500 Balance 1201.8 -36 843.8 -858.8 Weight 96 lb 96 lb 3.2 oz 98 lb 3.2 oz 95 lb Gen: intubated, awake Heart: RRR Lung: decreased breath sounds at the bases Abd: soft, nontender Ext: contracted, +edema CBC, BMP 07/02/16 05:20 07/02/16 05:20 Active Medications Acetaminophen (Tylenol Suppository -) 650 mg ME Q4H PRN PRN Reason: FEVER OR PAIN Bisacodyl (Dulcolax Suppository -) 10 mg RC DAILY [facility] Last Admin: 07/02/16 11:09 Dose: Not Given Chlorhexidine Gluconate (Hibiclens For Decolonization -) 1 applic TP HS [facility] Last Admin: 07/01/16 21:35 Dose: 1 applic Chlorhexidine Gluconate (Peridex -) 15 ml MM BID [facility] Last Admin: 07/01/16 21:35 Dose: 15 ml Clobazam (Onfi -) 10 mg PO DAILY [facility] Last Admin: 07/01/16 09:56 Dose: 10 mg Clonazepam (Klonopin -) 0.5 mg GT TID [facility] Last Admin: 07/02/16 06:51 Dose: 0.5 mg Enoxaparin Sodium (Lovenox -) 40 mg SQ DAILY [facility] Last Admin: 07/01/16 09:55 Dose: 40 mg Propofol (Diprivan -) 100 mls @ 1.257 mls/hr IV TITR JORGE; 5 MCG/KG/MIN PRN Reason: Protocol Last Admin: 07/02/16 02:19 Dose: 2.515 mls/hr Pantoprazole Sodium (Protonix 40mg Ivpb (Pre-Docked)) 100 mls @ 200 mls/hr IVPB DAILY [facility] Last Admin: 07/01/16 10:56 Dose: 200 mls/hr Levofloxacin (Levaquin 500 Mg Premixed Ivpb -) 100 mls @ 100 mls/hr IVPB DAILY [facility] Ondansetron HCl (Zofran Injection) 4 mg IVPB Q6H PRN PRN Reason: NAUSEA Phenobarbital (Phenobarbital Liquid -) 40 mg GT BID [facility] Last Admin: 07/01/16 21:35 Dose: 40 mg Scopolamine HBr (Transderm-Scop -) 1 patch TD Q72H [facility] Last Admin: 07/02/16 11:10 Dose: 1 patch ASSESSMENT AND PLAN: Acute Hypoxic Respiratory Failure Pneumonia/Sepsis Lactic Acidosis Elevated LFTs Mental Retardation Seizure Disorder Functional Quadriplegia - continue antibiotics per ID - place scopolamine patch for oral secretions - minimize sedation to assist in weaning - spontaneous breathing trials as tolerated - enteral feeds - DVT/GI prophylaxis - continue ICU monitoring
[2016-07-02] MEDS ORDERED: PROPOFOL 100 ML ONE ×2 (14:15→22:21)
--- NOTE | 2016-07-02 14:18 | PN ---
Addendum entered and electronically signed by Ramon Dia RES 07/02/16 18:04: Patient's mother is in active discussion with patient's PMD at [facility] regarding DNR. Original Note: Physical Exam: SUBJECTIVE: Patient seen and examined at bedside in the ICU. Intubated and sedated. OBJECTIVE: Patient was re-intubated on last Thursday night. Intubation day 5. Vent Settings: AC, TV 350, FiO2 40%, RR 12, PEEP 5 - Did not tolerate CPAP Now sedated on propofol gtt at 40mcg. Vital Signs Period Temp Pulse Resp BP Sys/Linares Pulse Ox Last 24 Hr 98.9 F-99.8 F 48-84 12-28 97-108/47-60 94-94 GENERAL: non-verbal, blind, severely mentally retarded, does not follow command , on mechanical ventilation (as settings above). EYES: Pupils equal, non-reactive, rotatory nystagmus LUNGS: CTAB HEART: RRR without murmur, gallop, rub ABDOMEN: Soft, nontender, not distended, normoactive bowel sounds, no guarding, no rebound, no masses. +PEG tube EXTREMITIES: contracted in position. No peripheral edema. ABG Results ABG pH 7.45 (7.35-7.45) 07/01/16 07:25 ABG pCO2 at Pt Temp 35.9 mmHg (35-45) 07/01/16 07:25 ABG pO2 at Pt Temp 156.0 mmHg (80-100) H* 07/01/16 07:25 ABG HCO3 24.7 meq/L (22-26) 07/01/16 07:25 ABG O2 Sat (Measured) 99.4 % (90-98.9) H 07/01/16 07:25 ABG O2 Content 13.4 % vol (15-22) L 07/01/16 07:25 ABG Base Excess 1.3 meq/l (-2-2) 07/01/16 07:25 CBCD WBC 11.6 K/mm3 (4.0-10.0) H 07/02/16 05:20 RBC 2.70 M/mm3 (4.00-5.60) L 07/02/16 05:20 Hgb 9.6 GM/dL (11.7-16.9) L 07/02/16 05:20 Hct 27.5 % (35.4-49) L 07/02/16 05:20 MCV 101.9 fl (80-96) H 07/02/16 05:20 MCHC 34.8 g/dl (32.0-35.9) 07/02/16 05:20 RDW 16.6 % (11.9-15.9) H 07/02/16 05:20 Plt Count 217 K/MM3 (134-434) 07/02/16 05:20 MPV 10.0 fl (7.5-11.1) 07/02/16 05:20 CMP Sodium 143 mmol/L (136-145) 07/02/16 05:20 Potassium 3.6 mmol/L (3.5-5.1) 07/02/16 05:20 Chloride 108 mmol/L (98-107) H 07/02/16 05:20 Carbon Dioxide 26 mmol/L (21-32) 07/02/16 05:20 Anion Gap 9 (8-16) 07/02/16 05:20 BUN 8 mg/dL (7-18) 07/02/16 05:20 Creatinine 0.5 mg/dL (0.7-1.3) L 07/02/16 05:20 Creat Clearance w eGFR > 60 (>60) 07/02/16 05:20 Calcium 8.3 mg/dL (8.5-10.1) L 07/02/16 05:20 Total Bilirubin 0.6 mg/dL (0.2-1.0) 07/02/16 05:20 AST 37 U/L (15-37) D 07/02/16 05:20 ALT 46 U/L (12-78) 07/02/16 05:20 Alkaline Phosphatase 253 U/L (45-117) H 07/02/16 05:20 Total Protein 7.2 g/dl (6.4-8.2) 07/02/16 05:20 Albumin 2.8 g/dl (3.4-5.0) L 07/02/16 05:20 Intake & Output 07/01/16 07/02/16 07/02/16 23:59 07:59 15:59 Intake Total 525 641.2 Output Total 1500 Balance 525 -858.8 Weight 43.091 kg Active Medications Generic Name Dose Route Start Last Admin Trade Name Freq PRN Reason Stop Dose Admin Acetaminophen 650 mg 06/26/16 12:21 Tylenol Suppository - [place] Q4H PRN FEVER OR PAIN Bisacodyl 10 mg 06/27/16 10:00 07/02/16 11:09 Dulcolax Suppository - RC Not Given DAILY JORGE Chlorhexidine Gluconate 1 applic 06/26/16 22:00 07/01/16 21:35 Hibiclens For Decolonization - TP 1 applic HS JORGE Administration Chlorhexidine Gluconate 15 ml 06/28/16 10:00 07/01/16 21:35 Peridex - MM 15 ml BID JORGE Administration Clobazam 10 mg 06/27/16 10:00 07/01/16 09:56 Onfi - PO 10 mg DAILY JORGE Administration Clonazepam 0.5 mg 06/26/16 14:00 07/02/16 06:51 Klonopin - GT 0.5 mg TID JORGE Administration Enoxaparin Sodium 40 mg 06/27/16 10:00 07/01/16 09:55 Lovenox - SQ 40 mg DAILY [facility] Administration Propofol 100 mls @ 1.257 mls/hr 06/26/16 12:30 07/02/16 02:19 Diprivan - IV 2.515 mls/hr TITR JORGE Administration Protocol 5 MCG/KG/MIN Pantoprazole Sodium 100 mls @ 200 mls/hr 07/01/16 10:00 07/01/16 10:56 Protonix 40mg Ivpb (Pre-Docked) IVPB 200 mls/hr DAILY [facility] Administration Levofloxacin 100 mls @ 100 mls/hr 07/02/16 10:00 Levaquin 500 Mg Premixed Ivpb - IVPB DAILY [facility] Ondansetron HCl 4 mg 06/26/16 12:21 Zofran Injection IVPB Q6H PRN NAUSEA Phenobarbital 40 mg 07/01/16 22:00 07/01/16 21:35 Phenobarbital Liquid - GT 40 mg BID JORGE Administration Scopolamine HBr 1 patch 07/02/16 09:30 07/02/16 11:10 Transderm-Scop - TD 1 patch Q72H JORGE Administration Microbiology 06/28/16 10:00 Sputum - Endotrachea Suction/Ventilator Gram Stain - Final 06/28/16 10:00 Sputum - Endotrachea Suction/Ventilator Sputum Culture - Final Diphtheroid/Corynebacterium Citrobacter Koseri Imaging CXR 07/02: No signicant change compared to 07/01 CXR ASSESSMENT/PLAN: 21 yo M [facility] resident with history of herpetic encephalitis, profound mental retardation, epilepsy, chronic hypothermia, asthma admitted to the ICU for acute respiratory failure. Did not tolerate CPAP (became tachycardic) during weaning trial. Neuro - baseline: non-verbal, legally blind, no gag reflex - cont. konopin, clobazam, phenobarbital (adjusted to TID) - low body temp at baseline * ahsan cruz PRN ID - afrebile, WBC trending down - abx transitioned to levaquin (day 1) Pulm - will attempt extubation tomorrow * pt previously on ventimask 5L during day and bipap at night at [facility] - maintain O2 sat > 90% GI - PEG tube intact Renal/ - stable Prophylaxis - DVT: lovenox - GI: not indicated Nutrition - tube feed promote Dispo: will try to extubate tomorrow, cont. to monitor in ICU. Visit type - Emergency Visit Emergency Visit: No - New Patient This patient is new to me today: No - Critical Care Critical Care patient: Yes Total Critical Care Time (in minutes): 35 Critical Care Statement: The care of this patient involved high complexity decision making to prevent further life threatening deterioration of the patient 's condition and/or to evalute & treat vital organ system(s) failure or risk of failure.
[2016-07-02] MEDS: LEVOFLOXACIN 500 MG IVPB 100 ML IVPB SCH (15:37)
[2016-07-02] MEDS: ENOXAPARIN NA (PORCINE) 40 MG/0.4 ML DISP.SYRIN SQ SCH (15:37)
[2016-07-02] MEDS: cloBAZam 10 MG TABLET PO SCH (15:37)
[2016-07-02] MEDS: CHLORHEXIDINE GLUCONATE 0.12% 15ML CUP MM SCH ×2 (15:37→21:37)
[2016-07-02] MEDS: PHENobarbital 20 MG/5 ML UNIT-DOSE CUP GT SCH ×2 (15:37→21:37)
[2016-07-02] MEDS: PANTOPRAZOLE SODIUM 100 ML IVPB SCH (15:38)
--- NOTE | 2016-07-02 16:10 | PN ---
Physical Exam: SUBJECTIVE: Patient seen and examined. He did not tolerate CPAP and remains intubated and sedated with propofol gtt at 40mcg. OBJECTIVE: GENERAL: Sedated, intubated HEAD: Normal with no signs of trauma. LUNGS: Breath sounds equal, clear to auscultation bilaterally, no wheezes, no crackles. HEART:Sinus bradycardia 60s ABDOMEN: Soft, nontender, PEG tube in place. EXTREMITIES: Contracted. 2+ pulses, warm, well-perfused, localized edema to left foot NEUROLOGICAL: nonverbal, unable to follow commands, severe MR SKIN: Warm, dry, capillary refill <3 seconds, no rashes or lesions noted, position Vital Signs Period Temp Pulse Resp BP Sys/Linares Pulse Ox Last 24 Hr 98.9 F-99.8 F 48-84 12-28 97-107/47-60 94-94 Laboratory Results - last 24 hr 07/02/16 07/02/16 05:20 05:20 WBC 11.6 H RBC 2.70 L Hgb 9.6 L Hct 27.5 L MCV 101.9 H MCHC 34.8 RDW 16.6 H Plt Count 217 MPV 10.0 Neutrophils % 64.1 D Lymphocytes % 24.6 D Monocytes % 8.5 Eosinophils % 2.5 Basophils % 0.3 Sodium 143 Potassium 3.6 Chloride 108 H Carbon Dioxide 26 Anion Gap 9 BUN 8 Creatinine 0.5 L Creat Clearance w eGFR > 60 Random Glucose 118 H D Calcium 8.3 L Phosphorus 3.9 D Magnesium 1.6 L Total Bilirubin 0.6 AST 37 D ALT 46 Alkaline Phosphatase 253 H Total Protein 7.2 Albumin 2.8 L Active Medications Generic Name Dose Route Start Last Admin Trade Name Freq PRN Reason Stop Dose Admin Acetaminophen 650 mg 06/26/16 12:21 Tylenol Suppository - [place] Q4H PRN FEVER OR PAIN Bisacodyl 10 mg 06/27/16 10:00 07/02/16 11:09 Dulcolax Suppository - RC Not Given DAILY [facility] Chlorhexidine Gluconate 1 applic 06/26/16 22:00 07/01/16 21:35 Hibiclens For Decolonization - TP 1 applic HS [facility]ORGE Administration Chlorhexidine Gluconate 15 ml 06/28/16 10:00 07/02/16 15:37 Peridex - MM 15 ml BID JORGE Administration Clobazam 10 mg 06/27/16 10:00 07/02/16 15:37 Onfi - PO 10 mg DAILY [facility] Administration Clonazepam 0.5 mg 06/26/16 14:00 07/02/16 15:44 Klonopin - GT 0.5 mg TID JORGE Administration Enoxaparin Sodium 40 mg 06/27/16 10:00 07/02/16 15:37 Lovenox - SQ 40 mg DAILY [facility] Administration Propofol 100 mls @ 1.257 mls/hr 06/26/16 12:30 07/02/16 15:38 Diprivan - IV 2.716 mls/hr TITR JORGE Administration Protocol 5 MCG/KG/MIN Pantoprazole Sodium 100 mls @ 200 mls/hr 07/01/16 10:00 07/02/16 15:38 Protonix 40mg Ivpb (Pre-Docked) IVPB 200 mls/hr DAILY [facility] Administration Levofloxacin 100 mls @ 100 mls/hr 07/02/16 10:00 07/02/16 15:37 Levaquin 500 Mg Premixed Ivpb - IVPB 100 mls/hr DAILY [facility] Administration Ondansetron HCl 4 mg 06/26/16 12:21 Zofran Injection IVPB Q6H PRN NAUSEA Phenobarbital 40 mg 07/01/16 22:00 07/02/16 15:37 Phenobarbital Liquid - GT 40 mg BID [facility] Administration Scopolamine HBr 1 patch 07/02/16 09:30 07/02/16 11:10 Transderm-Scop - TD 1 patch Q72H JORGE Administration ASSESSMENT/PLAN: Patient is a 21 year old male with PMHx of mental retardation, functional quadriplegia, seizure disorder, asthma, chronic hypothermia and herpes encephalopathy. He was brought into the ED on 06/26/16 with hypoxia and respiratory distress. Patient was extubated 06/27, went into respiratory distress and had to be intubated the same day. He remains intubated, as he was unable to tolerate CPAP. At the [place], he is on ventimask during day and bipap at night. ID: Severe Sepsis - Met sepsis criteria on admission (Leukocytosis 11.3, tachycardia 110-120s, Lactic acid 6.742) - now resolved Assessment/Plan: Leukocytosis bumped up today (11.6), Tachycardia resolved, Lactic acidosis resolved Sepsis likely secondary to aspiration pneumonia Blood cultures with no growth to date Sputum cultures with diptheroid corynecbacterium zosyn d/cd, now on Levaquin Pulmonary: Hypoxic respiratory failure - acute Assessment/Plan: Remains intubated. Attempt to be extubated today Duonebs as needed. Maintain oxygen saturations > 90% GI: Transaminitis - acute Assessment/Plan: AST/ALT elevated, monitor trend Peg tub intact, receiving continuous tube feeds Neurology: Chronic hypothermia Assessment/Plan: Hypothermia protocol, baseline 94F no treatment unless falls below 94F Tenisha hugger as needed Seizures Assessment/Plan: On Clonazapam, Clobazam, phenobartital No reported seizures since admission Seizure precautions Hematology: Anemia Assessment/Plan: Monitor trend F.E.N. Fluids: no IVF - tolerating feeds Electrolytes: hypernatremia: resolved hypomagnesium: repleted with mag 1 gram Phosphorus: within normal limits Nutrition: Peg tube feeds/Jevity 1.2 Prophylaxis: DVT: Prophylaxis: SCDs bilaterally, Lovenox 40mg daily GI Prophylaxis: Protonix 40mg Disposition: Patient requires continued ICU monitoring, potential for extubation trial tomorrow. Full Code. Visit type - Emergency Visit Emergency Visit: Yes ED Registration Date: 06/26/16 Care time: The patient presented to the Emergency Department on the above date and was hospitalized for further evaluation of their emergent condition. - New Patient This patient is new to me today: No - Critical Care Critical Care patient: Yes Total Critical Care Time (in minutes): 45 Critical Care Statement: The care of this patient involved high complexity decision making to prevent further life threatening deterioration of the patient 's condition and/or to evalute & treat vital organ system(s) failure or risk of failure. - Discharge Referral Referred to [facility] No
[2016-07-02] MEDS: CHLORHEXIDINE GLUCONATE 4% CLEANSER FOR DECOLONIZATION TP SCH (21:37)
[2016-07-03] MEDS ORDERED: PROPOFOL 100 ML ONE ×2 (03:01→23:02)
[2016-07-03] MEDS: clonazePAM 0.5 MG TABLET GT SCH ×3 (06:39→22:00)
[2016-07-03 06:44] LABS: BASOPHIL 0.5 % (0-2.0); EOSINOPHIL 2.4 % (0-4.5); MCH 36.1 pg (25.7-33.7); MCHC 34.9 g/dl (32.0-35.9); MEAN CELL VOLUME 103.5 fl (80-96); MEAN PLT VOLUME 9.2 fl (7.5-11.1); NEUTROPHILS 45.9 % (42.8-82.8); PLATELET COUNT 243 K/MM3 (134-434); RDW 15.9 % (11.9-15.9); WHITE BLOOD COUNT 10.7 K/mm3 (4.0-10.0)
[2016-07-03 07:14] LABS: ALBUMIN 2.9 g/dl (3.4-5.0); ANION GAP 9 (8-16); CALCIUM 8.6 mg/dL (8.5-10.1); CO2 26 mmol/L (21-32); GLUCOSE,RANDOM 87 mg/dL (74-106); MAGNESIUM 1.9 mg/dL (1.8-2.4)
[2016-07-03 07:19] LABS: ALK PHOS 256 U/L (45-117); BILIRUBIN,TOTAL 0.5 mg/dL (0.2-1.0); CREATININE 0.6 mg/dL (0.7-1.3); PHOSPHOROUS 3.7 mg/dL (2.5-4.9); SGOT/AST 26 U/L (15-37); SGPT/ALT 43 U/L (12-78); TOT PROT 7.6 g/dl (6.4-8.2)
[2016-07-03 07:44] LABS: ALLENS TEST POSITIVE; ART PUNCT SITE LEFT RADIAL; ARTERIAL BLD GAS O2 SATURATION 99.3 % (90-98.9); ARTERIAL BLOOD GAS BASE EXCESS 0.4 meq/l (-2-2); ARTERIAL BLOOD GAS HCO3 23.6 meq/L (22-26); ARTERIAL BLOOD GAS pH 7.45 (7.35-7.45); LPM/O2% 35%; PT. ON O2? YES
[2016-07-03 07:45] LABS: MECH. VENT. YES; TYPE OF O2 VENT
[2016-07-03 07:46] LABS: VENT RATE 12; VT/PRESS 350
--- NOTE | 2016-07-03 08:25 | PN ---
Progress Note, Physician Chief Complaint: ID Remains intubated Levofloxacin day 1 therapy Citrobacter Bradycardic - Current Medication List Current Medications: Active Medications Acetaminophen (Tylenol Suppository -) 650 mg NE Q4H PRN PRN Reason: FEVER OR PAIN Bisacodyl (Dulcolax Suppository -) 10 mg RC DAILY [facility] Last Admin: 07/02/16 11:09 Dose: Not Given Chlorhexidine Gluconate (Hibiclens For Decolonization -) 1 applic TP HS [facility] Last Admin: 07/02/16 21:37 Dose: 1 applic Chlorhexidine Gluconate (Peridex -) 15 ml MM BID [facility] Last Admin: 07/02/16 21:37 Dose: 15 ml Clobazam (Onfi -) 10 mg PO DAILY [facility] Last Admin: 07/02/16 15:37 Dose: 10 mg Clonazepam (Klonopin -) 0.5 mg GT TID [facility] Last Admin: 07/03/16 06:39 Dose: 0.5 mg Enoxaparin Sodium (Lovenox -) 40 mg SQ DAILY [facility] Last Admin: 07/02/16 15:37 Dose: 40 mg Propofol (Diprivan -) 100 mls @ 1.257 mls/hr IV TITR JORGE; 5 MCG/KG/MIN PRN Reason: Protocol Last Admin: 07/02/16 15:38 Dose: 2.716 mls/hr Pantoprazole Sodium (Protonix 40mg Ivpb (Pre-Docked)) 100 mls @ 200 mls/hr IVPB DAILY [facility] Last Admin: 07/02/16 15:38 Dose: 200 mls/hr Levofloxacin (Levaquin 500 Mg Premixed Ivpb -) 100 mls @ 100 mls/hr IVPB DAILY [facility] Last Admin: 07/02/16 15:37 Dose: 100 mls/hr Ondansetron HCl (Zofran Injection) 4 mg IVPB Q6H PRN PRN Reason: NAUSEA Phenobarbital (Phenobarbital Liquid -) 40 mg GT BID [facility] Last Admin: 07/02/16 21:37 Dose: 40 mg Scopolamine HBr (Transderm-Scop -) 1 patch TD Q72H [facility] Last Admin: 07/02/16 11:10 Dose: 1 patch - Objective Vital Signs: Vital Signs Temperature 99.4 F 07/03/16 06:00 Pulse Rate 52 L 07/03/16 06:00 Respiratory Rate 12 07/03/16 06:38 Blood Pressure 99/39 07/03/16 06:00 O2 Sat by Pulse Oximetry (%) 100 07/02/16 21:00 Constitutional: Yes: Other (Intubated) Cardiovascular: Yes: Bradycardia, S1, S2 Respiratory: Yes: WNL, Regular, CTA Bilaterally Gastrointestinal: Yes: WNL, Normal Bowel Sounds, Soft. No: Tenderness Edema: No Labs: CBC, BMP 07/03/16 05:10 07/03/16 05:10 INR, PTT INR 1.14 (0.82-1.09) 06/26/16 10:13 Assessment/Plan Microbiology 06/28/16 10:00 Sputum - Endotrachea Suction/Ventilator Gram Stain - Final 06/28/16 10:00 Sputum - Endotrachea Suction/Ventilator Sputum Culture - Final Diphtheroid/Corynebacterium Citrobacter Koseri 06/29/16 09:10 Blood - Peripheral Venous Blood Culture - Preliminary NO GROWTH OBTAINED AFTER 72 HOURS, INCUBATION TO CONTINUE FOR 2 DAYS. 06/29/16 09:00 Blood - Peripheral Venous Blood Culture - Preliminary NO GROWTH OBTAINED AFTER 72 HOURS, INCUBATION TO CONTINUE FOR 2 DAYS. Laboratory Tests 07/03/16 07/03/16 07/03/16 05:10 05:10 07:25 WBC 10.7 H Hgb 10.0 L Hct 28.6 L Plt Count 243 ABG pH 7.45 ABG pCO2 at Pt Temp 34.2 L ABG pO2 at Pt Temp 152.0 H* Oxygen Flow Rate 35% BUN 9 Creatinine 0.6 L Assessment Respiratory failure with PNA ( Citrobacter resistant isolated) Plan Continue Quinolone as ordered Nikki SCHWARZ
[2016-07-03] MEDS: LEVOFLOXACIN 500 MG IVPB 100 ML IVPB SCH (11:36)
[2016-07-03] MEDS: [UNRECOGNIZED DRUG - OTHER] GT SCH (11:37)
[2016-07-03] MEDS: ENOXAPARIN NA (PORCINE) 40 MG/0.4 ML DISP.SYRIN SQ SCH (11:37)
[2016-07-03] MEDS: cloBAZam 10 MG TABLET PO SCH (11:37)
[2016-07-03] MEDS: MULTIVITAMIN GT SCH (11:37)
[2016-07-03] MEDS: PANTOPRAZOLE SODIUM 100 ML IVPB SCH (11:37)
[2016-07-03] MEDS: BISACODYL 10 MG SUPP.RECT RC SCH (11:37)
[2016-07-03] MEDS: CHLORHEXIDINE GLUCONATE 0.12% 15ML CUP MM SCH ×2 (11:38→22:00)
[2016-07-03] MEDS: PHENobarbital 20 MG/5 ML UNIT-DOSE CUP GT SCH ×2 (11:50→22:00)
[2016-07-03] MEDS: PROPOFOL 100 ML IV SCH ×2 (11:50→23:54)
--- NOTE | 2016-07-03 13:22 | PN ---
Teaching Attending Note Name of Resident: Ramon Dia ATTENDING PHYSICIAN STATEMENT I saw and evaluated the patient. I reviewed the resident's note and discussed the case with the resident. I agree with the resident's findings and plan as documented. SUBJECTIVE: Patient seen and examined in the ICU. Remains intubated on 40% FiO2. Still with copious somewhat bloody (dried) from ETT / less from mouth. Lightly sedated on propofol. No pressors. CXR: Rotated / ETT at the thoracic inlet / mildly improved Intake & Output 06/30/16 07/01/16 07/02/16 07/03/16 23:59 23:59 23:59 23:59 Intake Total 2414 1443.8 2634.2 Output Total 2450 600 2400 450 Balance -36 843.8 234.2 -450 Weight 96 lb 3.2 oz 98 lb 3.2 oz 95 lb 90 lb 1.6 oz Last Vital Signs Temp Pulse Resp BP Pulse Ox 99.3 F 61 13 115/56 100 07/03/16 12:00 07/03/16 12:00 07/03/16 12:00 07/03/16 12:00 07/03/16 09:00 Active Medications Acetaminophen (Tylenol Suppository -) 650 mg ME Q4H PRN PRN Reason: FEVER OR PAIN Bisacodyl (Dulcolax Suppository -) 10 mg RC DAILY [facility] Last Admin: 07/03/16 11:37 Dose: 10 mg Chlorhexidine Gluconate (Hibiclens For Decolonization -) 1 applic TP HS [facility] Last Admin: 07/02/16 21:37 Dose: 1 applic Chlorhexidine Gluconate (Peridex -) 15 ml MM BID [facility] Last Admin: 07/03/16 11:38 Dose: 15 ml Clobazam (Onfi -) 10 mg PO DAILY [facility] Last Admin: 07/03/16 11:37 Dose: 10 mg Clonazepam (Klonopin -) 0.5 mg GT TID [facility] Last Admin: 07/03/16 06:39 Dose: 0.5 mg Enoxaparin Sodium (Lovenox -) 40 mg SQ DAILY [facility] Last Admin: 07/03/16 11:37 Dose: 40 mg Propofol (Diprivan -) 100 mls @ 1.257 mls/hr IV TITR JORGE; 5 MCG/KG/MIN PRN Reason: Protocol Last Admin: 07/03/16 11:50 Dose: 9 mls/hr Pantoprazole Sodium (Protonix 40mg Ivpb (Pre-Docked)) 100 mls @ 200 mls/hr IVPB DAILY [facility] Last Admin: 07/03/16 11:37 Dose: 200 mls/hr Levofloxacin (Levaquin 500 Mg Premixed Ivpb -) 100 mls @ 100 mls/hr IVPB DAILY [facility] Last Admin: 07/03/16 11:36 Dose: 100 mls/hr Ondansetron HCl (Zofran Injection) 4 mg IVPB Q6H PRN PRN Reason: NAUSEA Phenobarbital (Phenobarbital Liquid -) 40 mg GT BID [facility] Last Admin: 07/03/16 11:50 Dose: 40 mg Scopolamine HBr (Transderm-Scop -) 1 patch TD Q72H [facility] Last Admin: 07/02/16 11:10 Dose: 1 patch Gen: Intubated, sedated Heart: RRR Lung: Coarse rhonchi bases -> Right > Left Abd: soft, notender Ext: distal edema, contracted Laboratory Results - last 24 hr 07/03/16 07/03/16 07/03/16 05:10 05:10 07:25 WBC 10.7 H RBC 2.76 L Hgb 10.0 L Hct 28.6 L MCV 103.5 H MCHC 34.9 RDW 15.9 Plt Count 243 MPV 9.2 Neutrophils % 45.9 D Lymphocytes % 42.0 H D Monocytes % 9.2 Eosinophils % 2.4 Basophils % 0.5 Puncture Site Left radial ABG pH 7.45 ABG pCO2 at Pt Temp 34.2 L ABG pO2 at Pt Temp 152.0 H* ABG HCO3 23.6 ABG O2 Sat (Measured) 99.3 H ABG O2 Content 13.6 L ABG Base Excess 0.4 Kaushal Test Positive O2 Delivery Device Vent Oxygen Flow Rate 35% Vent Mode A/c Vent Rate 12 Mechanical Rate Yes PEEP 5.0 Pressure Support Vent 350 Sodium 143 Potassium 3.7 Chloride 108 H Carbon Dioxide 26 Anion Gap 9 BUN 9 Creatinine 0.6 L Creat Clearance w eGFR > 60 Random Glucose 87 D Calcium 8.6 Phosphorus 3.7 Magnesium 1.9 Total Bilirubin 0.5 AST 26 D ALT 43 Alkaline Phosphatase 256 H Total Protein 7.6 Albumin 2.9 L ASSESSMENT AND PLAN: Acute Hypoxic Respiratory Failure Pneumonia/Sepsis Lactic Acidosis (?) Acute Pulmonary Edema Elevated LFTs Mental Retardation Seizure Disorder Functional Quadriplegia - ABX for pneumonia - Monitor off IVF - Sedation vacation and SBTs as tolerated -> Hope to extubate by tomorrow - DVT/GI prophylaxis - Enteral feeds - Suction Dr Price CCTime 35"
--- NOTE | 2016-07-03 15:10 | PN ---
Physical Exam: SUBJECTIVE: Patient seen and examined at bedside in the ICU. Intubated and sedated. OBJECTIVE: Patient was re-intubated on last Thursday night. Intubation day 6. Vent Settings: AC, TV 350, FiO2 40%, RR 12, PEEP 5 -became tachycardic on CPAP, brownish aspirate from suction Now sedated on propofol gtt at 40mcg. Vital Signs Period Temp Pulse Resp BP Sys/Linares Pulse Ox Last 24 Hr 99.0 F-100.4 F 45-61 12- 99-115/38-58 100-100 GENERAL: non-verbal, blind, severely mentally retarded, does not follow command , on mechanical ventilation (as settings above). EYES: Pupils equal, reactive to light LUNGS: CTAB HEART: RRR without murmur, gallop, rub ABDOMEN: Soft, nontender, not distended, normoactive bowel sounds, no guarding, no rebound, no masses. +PEG tube EXTREMITIES: contracted in position. No peripheral edema. Laboratory Results - last 24 hr 07/03/16 07/03/16 07/03/16 05:10 05:10 07:25 WBC 10.7 H RBC 2.76 L Hgb 10.0 L Hct 28.6 L MCV 103.5 H MCHC 34.9 RDW 15.9 Plt Count 243 MPV 9.2 Neutrophils % 45.9 D Lymphocytes % 42.0 H D Monocytes % 9.2 Eosinophils % 2.4 Basophils % 0.5 Puncture Site Left radial ABG pH 7.45 ABG pCO2 at Pt Temp 34.2 L ABG pO2 at Pt Temp 152.0 H* ABG HCO3 23.6 ABG O2 Sat (Measured) 99.3 H ABG O2 Content 13.6 L ABG Base Excess 0.4 Kaushal Test Positive O2 Delivery Device Vent Oxygen Flow Rate 35% Vent Mode A/c Vent Rate 12 Mechanical Rate Yes PEEP 5.0 Pressure Support Vent 350 Sodium 143 Potassium 3.7 Chloride 108 H Carbon Dioxide 26 Anion Gap 9 BUN 9 Creatinine 0.6 L Creat Clearance w eGFR > 60 Random Glucose 87 D Calcium 8.6 Phosphorus 3.7 Magnesium 1.9 Total Bilirubin 0.5 AST 26 D ALT 43 Alkaline Phosphatase 256 H Total Protein 7.6 Albumin 2.9 L Active Medications Generic Name Dose Route Start Last Admin Trade Name Freq PRN Reason Stop Dose Admin Acetaminophen 650 mg 06/26/16 12:21 Tylenol Suppository - CO Q4H PRN FEVER OR PAIN Bisacodyl 10 mg 06/27/16 10:00 07/03/16 11:37 Dulcolax Suppository - RC 10 mg DAILY JORGE Administration Chlorhexidine Gluconate 1 applic 06/26/16 22:00 07/02/16 21:37 Hibiclens For Decolonization - TP 1 applic HS JORGE Administration Chlorhexidine Gluconate 15 ml 06/28/16 10:00 07/03/16 11:38 Peridex - MM 15 ml BID JORGE Administration Clobazam 10 mg 06/27/16 10:00 07/03/16 11:37 Onfi - PO 10 mg DAILY JORGE Administration Clonazepam 0.5 mg 06/26/16 14:00 07/03/16 06:39 Klonopin - GT 0.5 mg TID JORGE Administration Enoxaparin Sodium 40 mg 06/27/16 10:00 07/03/16 11:37 Lovenox - SQ 40 mg DAILY JORGE Administration Propofol 100 mls @ 1.257 mls/hr 06/26/16 12:30 07/03/16 11:50 Diprivan - IV 9 mls/hr TITR JORGE Administration Protocol 5 MCG/KG/MIN Pantoprazole Sodium 100 mls @ 200 mls/hr 07/01/16 10:00 07/03/16 11:37 Protonix 40mg Ivpb (Pre-Docked) IVPB 200 mls/hr DAILY JORGE Administration Levofloxacin 100 mls @ 100 mls/hr 07/02/16 10:00 07/03/16 11:36 Levaquin 500 Mg Premixed Ivpb - IVPB 100 mls/hr DAILY JORGE Administration Ondansetron HCl 4 mg 06/26/16 12:21 Zofran Injection IVPB Q6H PRN NAUSEA Phenobarbital 40 mg 07/01/16 22:00 07/03/16 11:50 Phenobarbital Liquid - GT 40 mg BID JORGE Administration Scopolamine HBr 1 patch 07/02/16 09:30 07/02/16 11:10 Transderm-Scop - TD 1 patch Q72H JORGE Administration Microbiology 06/28/16 10:00 Sputum - Endotrachea Suction/Ventilator Gram Stain - Final 06/28/16 10:00 Sputum - Endotrachea Suction/Ventilator Sputum Culture - Final Diphtheroid/Corynebacterium Citrobacter Koseri Imaging CXR 07/03: some improvement on aeration CXR 07/02: No signicant change compared to 07/01 CXR ASSESSMENT/PLAN: 21 yo M [place] resident with history of herpetic encephalitis, profound mental retardation, epilepsy, chronic hypothermia, asthma admitted to the ICU for acute respiratory failure. Again today, he did not tolerate CPAP (became tachycardic) during weaning trial. Neuro - baseline: non-verbal, legally blind, no gag reflex - cont. konopin, clobazam, phenobarbital (adjusted to TID) - low body temp at baseline * ahsan cruz PRN ID - afrebile, WBC trending down - abx transitioned to levaquin (day 2) Pulm - will attempt extubation again tomorrow * pt previously on ventimask 5L during day and bipap at night at [place] - maintain O2 sat > 90% GI - PEG tube intact Renal/ - stable Prophylaxis - DVT: lovenox - GI: protonix Nutrition - tube feed promote Dispo: will try to extubate tomorrow, cont. to monitor in ICU. Visit type - Emergency Visit Emergency Visit: No - New Patient This patient is new to me today: No - Critical Care Critical Care patient: Yes Total Critical Care Time (in minutes): 35 Critical Care Statement: The care of this patient involved high complexity decision making to prevent further life threatening deterioration of the patient 's condition and/or to evalute & treat vital organ system(s) failure or risk of failure.
--- NOTE | 2016-07-03 16:34 | PN ---
Physical Exam: SUBJECTIVE: Patient seen and examined. He opens his eyes, blinking, bradycardic this AM. Suction canister with brownish secretions, tachycardic on CPAP OBJECTIVE: Vital Signs Period Temp Pulse Resp BP Sys/Linares Pulse Ox Last 24 Hr 99.0 F-100.4 F 45-61 12-22 99-115/38-58 100-100 Vent: AC/12/250/35/5 PE Neuro: awake, intubated, light sedation, severe MR Pulm: diminished + intubated CV: s1 s2 bradycardia no mrg Abd: + peg tube, s nt nd +bs : esqueda Ext: b/l upper and lower contractures Laboratory Results - last 24 hr 07/03/16 07/03/16 07/03/16 05:10 05:10 07:25 WBC 10.7 H RBC 2.76 L Hgb 10.0 L Hct 28.6 L MCV 103.5 H MCHC 34.9 RDW 15.9 Plt Count 243 MPV 9.2 Neutrophils % 45.9 D Lymphocytes % 42.0 H D Monocytes % 9.2 Eosinophils % 2.4 Basophils % 0.5 Puncture Site Left radial ABG pH 7.45 ABG pCO2 at Pt Temp 34.2 L ABG pO2 at Pt Temp 152.0 H* ABG HCO3 23.6 ABG O2 Sat (Measured) 99.3 H ABG O2 Content 13.6 L ABG Base Excess 0.4 Kaushal Test Positive O2 Delivery Device Vent Oxygen Flow Rate 35% Vent Mode A/c Vent Rate 12 Mechanical Rate Yes PEEP 5.0 Pressure Support Vent 350 Sodium 143 Potassium 3.7 Chloride 108 H Carbon Dioxide 26 Anion Gap 9 BUN 9 Creatinine 0.6 L Creat Clearance w eGFR > 60 Random Glucose 87 D Calcium 8.6 Phosphorus 3.7 Magnesium 1.9 Total Bilirubin 0.5 AST 26 D ALT 43 Alkaline Phosphatase 256 H Total Protein 7.6 Albumin 2.9 L Active Medications Generic Name Dose Route Start Last Admin Trade Name Freq PRN Reason Stop Dose Admin Acetaminophen 650 mg 06/26/16 12:21 Tylenol Suppository - TN Q4H PRN FEVER OR PAIN Bisacodyl 10 mg 06/27/16 10:00 07/03/16 11:37 Dulcolax Suppository - RC 10 mg DAILY JORGE Administration Chlorhexidine Gluconate 1 applic 06/26/16 22:00 07/02/16 21:37 Hibiclens For Decolonization - TP 1 applic HS JORGE Administration Chlorhexidine Gluconate 15 ml 06/28/16 10:00 07/03/16 11:38 Peridex - MM 15 ml BID JORGE Administration Clobazam 10 mg 06/27/16 10:00 07/03/16 11:37 Onfi - PO 10 mg DAILY [facility]ORGE Administration Clonazepam 0.5 mg 06/26/16 14:00 07/03/16 16:24 Klonopin - GT 0.5 mg TID JORGE Administration Enoxaparin Sodium 40 mg 06/27/16 10:00 07/03/16 11:37 Lovenox - SQ 40 mg DAILY [facility]ORGE Administration Propofol 100 mls @ 1.257 mls/hr 06/26/16 12:30 07/03/16 11:50 Diprivan - IV 9 mls/hr TITR JORGE Administration Protocol 5 MCG/KG/MIN Pantoprazole Sodium 100 mls @ 200 mls/hr 07/01/16 10:00 07/03/16 11:37 Protonix 40mg Ivpb (Pre-Docked) IVPB 200 mls/hr DAILY [facility]ORGE Administration Levofloxacin 100 mls @ 100 mls/hr 07/02/16 10:00 07/03/16 11:36 Levaquin 500 Mg Premixed Ivpb - IVPB 100 mls/hr DAILY [facility] Administration Ondansetron HCl 4 mg 06/26/16 12:21 Zofran Injection IVPB Q6H PRN NAUSEA Phenobarbital 40 mg 07/01/16 22:00 07/03/16 11:50 Phenobarbital Liquid - GT 40 mg BID JORGE Administration Scopolamine HBr 1 patch 07/02/16 09:30 07/02/16 11:10 Transderm-Scop - TD 1 patch Q72H JORGE Administration Imaging: - ECHO: showed LV and RV size, thickness and function are normal. LV ejection fraction is normal. Trace TR. Right ventricular systolic pressure is normal. Pulmonic valve leaflets are thin and pliable, and there is trace pulmonic valvular regurgitation. Assessment: 21 year old male [place] resident with pmhx of herpetic encephalitis, profound mental retardation, epilepsy, chronic hypothermia, asthma admitted with acute respiratory failure intubated on 06/26, extubated on with re intubation on 06/27, tachycardiac while CPAP today. Plan: 1. Severe sepsis d/t Acute Respiratory failure 2/ pna - Continue propofol - CPAP as tolerated, wean as tolerated, possible extubation tomorrow - Continue scop patch - D/w ICU team 2. Aspiration PNA d/t citrobacter resistant isolated - s/p zosyn 6 days - Continue Levaquin (day 2) 3. Bradycardia - Asymptomatic, likely propofol induced 4. Hypothermia, resolved - Baseline 94 F, goal 95 F as per [facility] - Tenisha cruz if temperature < 94F 5. Seizure Disorder - Continue clonazepam TID, clobazam 10mg daily, phenobarbital BID 6. Functional Quadriplegia - Contracted to all four extremities - Turn and position q2 hours, pressure ulcer prophylaxis 7. DVT ppx - Lovenox sq Visit type - Emergency Visit Emergency Visit: Yes ED Registration Date: 06/26/16 Care time: The patient presented to the Emergency Department on the above date and was hospitalized for further evaluation of their emergent condition. - New Patient This patient is new to me today: Yes Date on this admission: 07/03/16 - Critical Care Critical Care patient: No - Discharge Referral Referred to [facility] Med P.C.: No
[2016-07-03] MEDS: CHLORHEXIDINE GLUCONATE 4% CLEANSER FOR DECOLONIZATION TP SCH (22:00)
[2016-07-04] MEDS: clonazePAM 0.5 MG TABLET GT SCH ×3 (05:57→21:47)
[2016-07-04 06:36] LABS: BASOPHIL 0.3 % (0-2.0); EOSINOPHIL 1.7 % (0-4.5); MCH 35.7 pg (25.7-33.7); MCHC 34.6 g/dl (32.0-35.9); MEAN CELL VOLUME 103.2 fl (80-96); NEUTROPHILS 49.2 % (42.8-82.8); PLATELET COUNT 341 K/MM3 (134-434); RDW 16.7 % (11.9-15.9); WHITE BLOOD COUNT 14.4 K/mm3 (4.0-10.0)
[2016-07-04 06:49] LABS: ALBUMIN 3.1 g/dl (3.4-5.0); ANION GAP 10 (8-16); CALCIUM 8.8 mg/dL (8.5-10.1); CO2 25 mmol/L (21-32); CREATININE 0.6 mg/dL (0.7-1.3); GLUCOSE,RANDOM 93 mg/dL (74-106); MAGNESIUM 1.8 mg/dL (1.8-2.4); PHOSPHOROUS 3.7 mg/dL (2.5-4.9); SGOT/AST 27 U/L (15-37); SGPT/ALT 42 U/L (12-78)
[2016-07-04 06:51] LABS: ALK PHOS 258 U/L (45-117); BILIRUBIN,TOTAL 0.5 mg/dL (0.2-1.0); TOT PROT 8.2 g/dl (6.4-8.2)
[2016-07-04] MEDS ORDERED: PT OWN MED DRAWER 7, Y5N ONE (08:45)
[2016-07-04] MEDS: CHLORHEXIDINE GLUCONATE 0.12% 15ML CUP MM SCH ×2 (09:30→21:47)
[2016-07-04] MEDS: LEVOFLOXACIN 500 MG IVPB 100 ML IVPB SCH (09:57)
[2016-07-04] MEDS: PANTOPRAZOLE SODIUM 100 ML IVPB SCH (09:58)
[2016-07-04] MEDS: ENOXAPARIN NA (PORCINE) 40 MG/0.4 ML DISP.SYRIN SQ SCH (09:58)
[2016-07-04] MEDS: BISACODYL 10 MG SUPP.RECT RC SCH (09:59)
[2016-07-04] MEDS: cloBAZam 10 MG TABLET PO SCH (09:59)
[2016-07-04] MEDS: [UNRECOGNIZED DRUG - OTHER] GT SCH (10:00)
[2016-07-04] MEDS: MULTIVITAMIN GT SCH (10:00)
[2016-07-04] MEDS: PHENobarbital 20 MG/5 ML UNIT-DOSE CUP GT SCH ×2 (10:01→21:47)
--- NOTE | 2016-07-04 11:20 | PN ---
Progress Note (short form) - Note Progress Note: extubated coughing NAD Vital Signs Period Temp Pulse Resp BP Sys/Linares Pulse Ox Last 24 Hr 98.2 F-99.8 F 50-63 12-18 99-115/37-62 95-98 cor-rrr lungs bilateral rhonchi abd soft,nt ext trace edema CBC, BMP 07/04/16 05:10 07/04/16 05:10 Microbiology 06/29/16 09:10 Blood - Peripheral Venous Blood Culture - Final NO GROWTH AFTER 5 DAYS INCUBATION 06/29/16 09:00 Blood - Peripheral Venous Blood Culture - Final NO GROWTH AFTER 5 DAYS INCUBATION a/p s/p extubation today doing well continue levaquin Problem List - Problems (1) Acute and chronic respiratory failure with hypoxia Code(s): J96.21 - ACUTE AND CHRONIC RESPIRATORY FAILURE WITH HYPOXIA (2) Aspiration pneumonia Code(s): J69.0 - PNEUMONITIS DUE TO INHALATION OF FOOD AND VOMIT
--- NOTE | 2016-07-04 12:01 | PN ---
Teaching Attending Note Name of Resident: Ramon Dia ATTENDING PHYSICIAN STATEMENT I saw and evaluated the patient. I reviewed the resident's note and discussed the case with the resident. I agree with the resident's findings and plan as documented. SUBJECTIVE: Patient seen and examined in the ICU. Remains intubated on 40% FiO2. Less secretions reported. No pressors. CXR: Rotated / ETT at the thoracic inlet / No gross change Intake & Output 07/01/16 07/02/16 07/03/16 07/04/16 23:59 23:59 23:59 23:59 Intake Total 1443.8 2634.2 948 670 Output Total 600 2400 1350 300 Balance 843.8 234.2 -402 370 Weight 98 lb 3.2 oz 95 lb 90 lb 1.6 oz 91 lb 1.6 oz Last Vital Signs Temp Pulse Resp BP Pulse Ox 98.2 F 63 12 111/58 97 07/04/16 06:00 07/04/16 09:40 07/04/16 08:00 07/04/16 08:00 07/04/16 09:40 Active Medications Acetaminophen (Tylenol Suppository -) 650 mg MS Q4H PRN PRN Reason: FEVER OR PAIN Bisacodyl (Dulcolax Suppository -) 10 mg RC DAILY [facility] Last Admin: 07/04/16 09:59 Dose: 10 mg Chlorhexidine Gluconate (Hibiclens For Decolonization -) 1 applic TP HS [facility] Last Admin: 07/03/16 22:00 Dose: 1 applic Chlorhexidine Gluconate (Peridex -) 15 ml MM BID [facility] Last Admin: 07/04/16 09:30 Dose: 15 ml Clobazam (Onfi -) 10 mg PO DAILY [facility] Last Admin: 07/04/16 09:59 Dose: 10 mg Clonazepam (Klonopin -) 0.5 mg GT TID [facility] Last Admin: 07/04/16 05:57 Dose: 0.5 mg Enoxaparin Sodium (Lovenox -) 40 mg SQ DAILY [facility] Last Admin: 07/04/16 09:58 Dose: 40 mg Propofol (Diprivan -) 100 mls @ 1.257 mls/hr IV TITR JORGE; 5 MCG/KG/MIN PRN Reason: Protocol Last Admin: 07/03/16 23:54 Dose: 9 mls/hr Pantoprazole Sodium (Protonix 40mg Ivpb (Pre-Docked)) 100 mls @ 200 mls/hr IVPB DAILY [facility] Last Admin: 07/04/16 09:58 Dose: 200 mls/hr Levofloxacin (Levaquin 500 Mg Premixed Ivpb -) 100 mls @ 100 mls/hr IVPB DAILY [facility] Last Admin: 07/04/16 09:57 Dose: 100 mls/hr Ondansetron HCl (Zofran Injection) 4 mg IVPB Q6H PRN PRN Reason: NAUSEA Phenobarbital (Phenobarbital Liquid -) 40 mg GT BID [facility] Last Admin: 07/04/16 10:01 Dose: 40 mg Scopolamine HBr (Transderm-Scop -) 1 patch TD Q72H [facility] Last Admin: 07/02/16 11:10 Dose: 1 patch Gen: Intubated, awake Heart: RRR Lung: Scattered basilar rhonchi Abd: soft, notender Ext: distal edema, contracted Laboratory Results - last 24 hr 07/04/16 07/04/16 05:10 05:10 WBC 14.4 H D RBC 2.97 L Hgb 10.6 L Hct 30.6 L MCV 103.2 H MCHC 34.6 RDW 16.7 H Plt Count 341 D MPV 9.0 Neutrophils % 49.2 Lymphocytes % 38.1 Monocytes % 10.7 H Eosinophils % 1.7 Basophils % 0.3 Sodium 141 Potassium 3.9 Chloride 106 Carbon Dioxide 25 Anion Gap 10 BUN 12 D Creatinine 0.6 L Creat Clearance w eGFR > 60 Random Glucose 93 Calcium 8.8 Phosphorus 3.7 Magnesium 1.8 Total Bilirubin 0.5 AST 27 ALT 42 Alkaline Phosphatase 258 H Total Protein 8.2 Albumin 3.1 L ASSESSMENT AND PLAN: Acute Hypoxic Respiratory Failure Pneumonia/Sepsis Lactic Acidosis (?) Acute Pulmonary Edema Elevated LFTs Mental Retardation Seizure Disorder Functional Quadriplegia - ABX for pneumonia - SBTs with a trial of extubation - DVT/GI prophylaxis - Enteral feeds - Suction Dr Price CCTime 35"
--- NOTE | 2016-07-04 13:55 | PN ---
Physical Exam: SUBJECTIVE: Patient seen and examined at bedside in the ICU. Extubated around 10am. Pt smiles when his name was called, cough at times with blood tinted sputum. OBJECTIVE: Vital Signs Period Temp Pulse Resp BP Sys/Linares Pulse Ox Last 24 Hr 98.2 F-99.8 F 50-63 12-18 99-113/37-62 95-98 GENERAL: non-verbal, blind, severely mentally retarded, does not follow command , extubated this AM tolerating NC well. EYES: Pupils equal, reactive to light LUNGS: CTAB HEART: RRR without murmur, gallop, rub ABDOMEN: Soft, nontender, not distended, normoactive bowel sounds, no guarding, no rebound, no masses. +PEG tube EXTREMITIES: contracted in position. No peripheral edema. ABG Results ABG pH 7.45 (7.35-7.45) 07/03/16 07:25 ABG pCO2 at Pt Temp 34.2 mmHg (35-45) L 07/03/16 07:25 ABG pO2 at Pt Temp 152.0 mmHg (80-100) H* 07/03/16 07:25 ABG HCO3 23.6 meq/L (22-26) 07/03/16 07:25 ABG O2 Sat (Measured) 99.3 % (90-98.9) H 07/03/16 07:25 ABG O2 Content 13.6 % vol (15-22) L 07/03/16 07:25 ABG Base Excess 0.4 meq/l (-2-2) 07/03/16 07:25 CBCD WBC 14.4 K/mm3 (4.0-10.0) H D 07/04/16 05:10 RBC 2.97 M/mm3 (4.00-5.60) L 07/04/16 05:10 Hgb 10.6 GM/dL (11.7-16.9) L 07/04/16 05:10 Hct 30.6 % (35.4-49) L 07/04/16 05:10 MCV 103.2 fl (80-96) H 07/04/16 05:10 MCHC 34.6 g/dl (32.0-35.9) 07/04/16 05:10 RDW 16.7 % (11.9-15.9) H 07/04/16 05:10 Plt Count 341 K/MM3 (134-434) D 07/04/16 05:10 MPV 9.0 fl (7.5-11.1) 07/04/16 05:10 CMP Sodium 141 mmol/L (136-145) 07/04/16 05:10 Potassium 3.9 mmol/L (3.5-5.1) 07/04/16 05:10 Chloride 106 mmol/L (98-107) 07/04/16 05:10 Carbon Dioxide 25 mmol/L (21-32) 07/04/16 05:10 Anion Gap 10 (8-16) 07/04/16 05:10 BUN 12 mg/dL (7-18) D 07/04/16 05:10 Creatinine 0.6 mg/dL (0.7-1.3) L 07/04/16 05:10 Creat Clearance w eGFR > 60 (>60) 07/04/16 05:10 Calcium 8.8 mg/dL (8.5-10.1) 07/04/16 05:10 Total Bilirubin 0.5 mg/dL (0.2-1.0) 07/04/16 05:10 AST 27 U/L (15-37) 07/04/16 05:10 ALT 42 U/L (12-78) 07/04/16 05:10 Alkaline Phosphatase 258 U/L (45-117) H 07/04/16 05:10 Total Protein 8.2 g/dl (6.4-8.2) 07/04/16 05:10 Albumin 3.1 g/dl (3.4-5.0) L 07/04/16 05:10 Intake & Output 07/01/16 07/02/16 07/03/16 07/04/16 23:59 23:59 23:59 23:59 Intake Total 1443.8 2634.2 948 670 Output Total 600 2400 1350 300 Balance 843.8 234.2 -402 370 Weight 44.543 kg 43.091 kg 40.869 kg 41.322 kg Active Medications Generic Name Dose Route Start Last Admin Trade Name Freq PRN Reason Stop Dose Admin Acetaminophen 650 mg 06/26/16 12:21 Tylenol Suppository - [place] Q4H PRN FEVER OR PAIN Bisacodyl 10 mg 06/27/16 10:00 07/04/16 09:59 Dulcolax Suppository - RC 10 mg DAILY JORGE Administration Chlorhexidine Gluconate 1 applic 06/26/16 22:00 07/03/16 22:00 Hibiclens For Decolonization - TP 1 applic HS JORGE Administration Chlorhexidine Gluconate 15 ml 06/28/16 10:00 07/04/16 09:30 Peridex - MM 15 ml BID JORGE Administration Clobazam 10 mg 06/27/16 10:00 07/04/16 09:59 Onfi - PO 10 mg DAILY JORGE Administration Clonazepam 0.5 mg 06/26/16 14:00 07/04/16 05:57 Klonopin - GT 0.5 mg TID JORGE Administration Enoxaparin Sodium 40 mg 06/27/16 10:00 07/04/16 09:58 Lovenox - SQ 40 mg DAILY JORGE Administration Propofol 100 mls @ 1.257 mls/hr 06/26/16 12:30 07/03/16 23:54 Diprivan - IV 9 mls/hr TITR JORGE Administration Protocol 5 MCG/KG/MIN Pantoprazole Sodium 100 mls @ 200 mls/hr 07/01/16 10:00 07/04/16 09:58 Protonix 40mg Ivpb (Pre-Docked) IVPB 200 mls/hr DAILY JORGE Administration Levofloxacin 100 mls @ 100 mls/hr 07/02/16 10:00 07/04/16 09:57 Levaquin 500 Mg Premixed Ivpb - IVPB 100 mls/hr DAILY JORGE Administration Ondansetron HCl 4 mg 06/26/16 12:21 Zofran Injection IVPB Q6H PRN NAUSEA Phenobarbital 40 mg 07/01/16 22:00 07/04/16 10:01 Phenobarbital Liquid - GT 40 mg BID JORGE Administration Scopolamine HBr 1 patch 07/02/16 09:30 07/02/16 11:10 Transderm-Scop - TD 1 patch Q72H JORGE Administration Imaging CXR 07/04: no change CXR 07/03: some improvement on aeration CXR 07/02: No signicant change compared to 07/01 CXR ASSESSMENT/PLAN: 21 yo M [place] resident with history of herpetic encephalitis, profound mental retardation, epilepsy, chronic hypothermia, asthma admitted to the ICU for acute respiratory failure. Again today, he did not tolerate CPAP (became tachycardic) during weaning trial. Neuro - At baseline - Cont. konopin, clobazam, phenobarbital (adjusted to TID) ID - afrebile, WBC persistently elevated - abx transitioned to levaquin (day 3) Pulm - Extubated on NC - Continuous suction to maintain patent airway - maintain O2 sat > 90% GI - PEG tube intact Renal/ - stable Prophylaxis - DVT: lovenox - GI: protonix Nutrition - tube feed promote Dispo: may be transferred to medical floor on Sat. Visit type - Emergency Visit Emergency Visit: No - New Patient This patient is new to me today: No - Critical Care Critical Care patient: Yes Total Critical Care Time (in minutes): 35 Critical Care Statement: The care of this patient involved high complexity decision making to prevent further life threatening deterioration of the patient 's condition and/or to evalute & treat vital organ system(s) failure or risk of failure.
--- NOTE | 2016-07-04 15:04 | PN ---
Physical Exam: SUBJECTIVE: Patient seen and examined at bedside. Pt. is awake, off sedation, and tolerating PSV well. There are brown secretions in his suction canister. Resting comfortably. Smiles when his name is called. OBJECTIVE: Vital Signs Period Temp Pulse Resp BP Sys/Linares Pulse Ox Last 24 Hr 98.2 F-99.8 F 50-68 12-25 99-113/37-62 95-98 GENERAL: The patient is awake, non-verbal, severe MR. Pt. responds to his name, does not follow commands. EYES: PERRL, extraocular movements intact, sclera anicteric, conjunctiva clear. No ptosis. ENT: Ears normal, nares patent, oropharynx clear without exudates, moist mucous membranes. NECK: Trachea midline, full range of motion, supple. LUNGS: Course lung sounds on the R. Equal chest rise. No accessory muscle use. HEART: Regular rate and rhythm, S1, S2 without murmur, rub or gallop. ABDOMEN: (+) PEG tube. Soft, nontender, nondistended, normoactive bowel sounds, no guarding, no rebound, no hepatosplenomegaly, no masses. EXTREMITIES: All limbs contracted in the position 2+ pulses, warm, well- perfused, no edema. NEUROLOGICAL: Non-verbal, legally blind. All 4 limbs contracted. PSYCH: Normal mood, normal affect. SKIN: Warm, dry, normal turgor, no rashes or lesions noted Laboratory Results - last 24 hr 07/04/16 07/04/16 05:10 05:10 WBC 14.4 H D RBC 2.97 L Hgb 10.6 L Hct 30.6 L MCV 103.2 H MCHC 34.6 RDW 16.7 H Plt Count 341 D MPV 9.0 Neutrophils % 49.2 Lymphocytes % 38.1 Monocytes % 10.7 H Eosinophils % 1.7 Basophils % 0.3 Sodium 141 Potassium 3.9 Chloride 106 Carbon Dioxide 25 Anion Gap 10 BUN 12 D Creatinine 0.6 L Creat Clearance w eGFR > 60 Random Glucose 93 Calcium 8.8 Phosphorus 3.7 Magnesium 1.8 Total Bilirubin 0.5 AST 27 ALT 42 Alkaline Phosphatase 258 H Total Protein 8.2 Albumin 3.1 L Active Medications Generic Name Dose Route Start Last Admin Trade Name Freq PRN Reason Stop Dose Admin Acetaminophen 650 mg 06/26/16 12:21 Tylenol Suppository - [place] Q4H PRN FEVER OR PAIN Bisacodyl 10 mg 06/27/16 10:00 07/04/16 09:59 Dulcolax Suppository - RC 10 mg DAILY JORGE Administration Chlorhexidine Gluconate 1 applic 06/26/16 22:00 07/03/16 22:00 Hibiclens For Decolonization - TP 1 applic HS JORGE Administration Chlorhexidine Gluconate 15 ml 06/28/16 10:00 07/04/16 09:30 Peridex - MM 15 ml BID JORGE Administration Clobazam 10 mg 06/27/16 10:00 07/04/16 09:59 Onfi - PO 10 mg DAILY JORGE Administration Clonazepam 0.5 mg 06/26/16 14:00 07/04/16 05:57 Klonopin - GT 0.5 mg TID JORGE Administration Enoxaparin Sodium 40 mg 06/27/16 10:00 07/04/16 09:58 Lovenox - SQ 40 mg DAILY JORGE Administration Propofol 100 mls @ 1.257 mls/hr 06/26/16 12:30 07/03/16 23:54 Diprivan - IV 9 mls/hr TITR JORGE Administration Protocol 5 MCG/KG/MIN Pantoprazole Sodium 100 mls @ 200 mls/hr 07/01/16 10:00 07/04/16 09:58 Protonix 40mg Ivpb (Pre-Docked) IVPB 200 mls/hr DAILY JORGE Administration Levofloxacin 100 mls @ 100 mls/hr 07/02/16 10:00 07/04/16 09:57 Levaquin 500 Mg Premixed Ivpb - IVPB 100 mls/hr DAILY JORGE Administration Ondansetron HCl 4 mg 06/26/16 12:21 Zofran Injection IVPB Q6H PRN NAUSEA Phenobarbital 40 mg 07/01/16 22:00 07/04/16 10:01 Phenobarbital Liquid - GT 40 mg BID JORGE Administration Scopolamine HBr 1 patch 07/02/16 09:30 07/02/16 11:10 Transderm-Scop - TD 1 patch Q72H JORGE Administration ASSESSMENT/PLAN: CXR 07/04/16: Residual RML consolidation remains unchanged from previous study. Assessment: 21 year old male [place] resident with significant PMH of herpetic encephalitis, Significant MR, epilepsy, chronic hypothermia, and asthma admitted with acute respiratory failure. He was intubated on 06/26 in the ED, extubated on 06/27 with re intubation on 06/27. Severe sepsis d/t Acute Respiratory failure 06/12 pna -- Extubated today while rounding by the ICU team. Pneumonia resolving. Good cough/gag reflex. -- Pt. tolerated extubation well. Placed on venti mask; mild red sputum in the mask -- Provide suction as needed. -- Continue scopalamine patch -- Discussed with ICU team Aspiration PNA d/t citrobacter resistant isolated -- S/P zosyn 6 days -- Continue Levaquin (day 3); ID following Bradycardia -- Asymptomatic, likely propofol induced -- Rate now in the mid 60's after extubation. Hypothermia, resolved -- Baseline 94 F, goal 95 F as per [facility] -- Tenisha cruz if temperature < 94F Seizure Disorder -- Continue clonazepam TID, clobazam 10mg daily, phenobarbital BID Functional Quadriplegia -- Contracted to all four extremities -- Turn and position q2 hours, pressure ulcer prophylaxis F/E/N -- Replete as necessary -- Continue with PEG tube feeds and fluids. DVT prophylaxis: Lovenox 40mg sq, TEDs. Visit type - Emergency Visit Emergency Visit: Yes ED Registration Date: 06/26/16 Care time: The patient presented to the Emergency Department on the above date and was hospitalized for further evaluation of their emergent condition. - New Patient This patient is new to me today: Yes Date on this admission: 07/04/16 - Critical Care Critical Care patient: Yes Total Critical Care Time (in minutes): 35 Critical Care Statement: The care of this patient involved high complexity decision making to prevent further life threatening deterioration of the patient 's condition and/or to evalute & treat vital organ system(s) failure or risk of failure. - Discharge Referral Referred to [facility] No
[2016-07-04] MEDS: PROPOFOL 100 ML IV SCH (16:55)
[2016-07-04] MEDS: CHLORHEXIDINE GLUCONATE 4% CLEANSER FOR DECOLONIZATION TP SCH (21:47)
[2016-07-05 06:18] LABS: BASOPHIL 0.5 % (0-2.0); EOSINOPHIL 0.8 % (0-4.5); MCH 35.7 pg (25.7-33.7); MCHC 34.5 g/dl (32.0-35.9); MEAN CELL VOLUME 103.5 fl (80-96); MEAN PLT VOLUME 8.7 fl (7.5-11.1); NEUTROPHILS 68.8 % (42.8-82.8); PLATELET COUNT 411 K/MM3 (134-434); RDW 16.2 % (11.9-15.9); WHITE BLOOD COUNT 21.4 K/mm3 (4.0-10.0)
--- NOTE | 2016-07-05 06:44 | PN ---
Progress Note, Physician Chief Complaint: DA Gale has been on 8 days of broad spectrum antibiotics Continues to have low grade fevers with WBC way up 21K today. According to nursing staff he is couphing a lot. He has no diarrhea and since I last saw him has been able to be extubated. Currently on Levofloxacin based on sputum culture . - Current Medication List Current Medications: Active Medications Acetaminophen (Tylenol Suppository -) [address] Q4H PRN PRN Reason: FEVER OR PAIN Bisacodyl (Dulcolax Suppository -) 10 mg RC DAILY [facility] Last Admin: 07/04/16 09:59 Dose: 10 mg Chlorhexidine Gluconate (Hibiclens For Decolonization -) 1 applic TP HS [facility] Last Admin: 07/04/16 21:47 Dose: 1 applic Chlorhexidine Gluconate (Peridex -) 15 ml MM BID [facility] Last Admin: 07/04/16 21:47 Dose: 15 ml Clobazam (Onfi -) 10 mg PO DAILY [facility] Last Admin: 07/04/16 09:59 Dose: 10 mg Clonazepam (Klonopin -) 0.5 mg GT TID [facility] Last Admin: 07/04/16 21:47 Dose: 0.5 mg Enoxaparin Sodium (Lovenox -) 40 mg SQ DAILY [facility] Last Admin: 07/04/16 09:58 Dose: 40 mg Pantoprazole Sodium (Protonix 40mg Ivpb (Pre-Docked)) 100 mls @ 200 mls/hr IVPB DAILY [facility] Last Admin: 07/04/16 09:58 Dose: 200 mls/hr Levofloxacin (Levaquin 500 Mg Premixed Ivpb -) 100 mls @ 100 mls/hr IVPB DAILY [facility] Last Admin: 07/04/16 09:57 Dose: 100 mls/hr Ondansetron HCl (Zofran Injection) 4 mg IVPB Q6H PRN PRN Reason: NAUSEA Phenobarbital (Phenobarbital Liquid -) 40 mg GT BID [facility] Last Admin: 07/04/16 21:47 Dose: 40 mg Scopolamine HBr (Transderm-Scop -) 1 patch TD Q72H [facility] Last Admin: 07/02/16 11:10 Dose: 1 patch - Objective Vital Signs: Vital Signs Temperature 99.4 F 07/05/16 06:00 Pulse Rate 60 07/05/16 06:00 Respiratory Rate 24 07/05/16 06:00 Blood Pressure 101/48 07/05/16 06:00 O2 Sat by Pulse Oximetry (%) 94 L 07/04/16 21:00 Constitutional: Yes: No Distress Cardiovascular: Yes: Regular Rate and Rhythm, S1, S2 Respiratory: Yes: WNL, Regular, CTA Bilaterally, Diminished Gastrointestinal: Yes: WNL, Normal Bowel Sounds, Soft. No: Tenderness Extremities: No: Calf Tenderness, Cold, Cool Edema: No Labs: CBC, BMP 07/05/16 05:20 07/04/16 05:10 INR, PTT INR 1.14 (0.82-1.09) 06/26/16 10:13 Problem List - Problems (1) Acute and chronic respiratory failure with hypoxia Code(s): J96.21 - ACUTE AND CHRONIC RESPIRATORY FAILURE WITH HYPOXIA (2) Gram-negative pneumonia Code(s): J15.6 - PNEUMONIA DUE TO OTHER AEROBIC GRAM-NEGATIVE BACTERIA Assessment/Plan Microbiology 06/29/16 09:10 Blood - Peripheral Venous Blood Culture - Final NO GROWTH AFTER 5 DAYS INCUBATION 06/29/16 09:00 Blood - Peripheral Venous Blood Culture - Final NO GROWTH AFTER 5 DAYS INCUBATION 06/28/16 10:00 Sputum - Endotrachea Suction/Ventilator Gram Stain - Final 06/28/16 10:00 Sputum - Endotrachea Suction/Ventilator Sputum Culture - Final Diphtheroid/Corynebacterium Citrobacter Koseri 06/27/16 10:00 Nasopharyngeal Swab Influenza Types A,B Antigen (VANCE) - Final 06/27/16 10:00 Nasopharyngeal Swab - Final 06/26/16 17:00 Urine For Antigen Detection Legionella Antigen - Final 06/26/16 17:00 Urine For Antigen Detection Streptococcus pneumoniae Antigen (M - Final 06/26/16 17:00 Urine - Urine Lane Urine Culture - Final NO GROWTH OBTAINED 06/26/16 10:00 Blood - Peripheral Venous Blood Culture - Final NO GROWTH AFTER 5 DAYS INCUBATION 06/26/16 10:00 Blood - Peripheral Venous Blood Culture - Final NO GROWTH AFTER 5 DAYS INCUBATION Laboratory Tests 07/03/16 07/05/16 07:25 05:20 WBC 21.4 H D MCV 103.5 H Plt Count 411 D ABG pH 7.45 ABG pCO2 at Pt Temp 34.2 L ABG pO2 at Pt Temp 152.0 H* Oxygen Flow Rate 35% Assessment Respiratory failure now extubated Gram negative pneumonia Herpetic encephalitis with profound mental retardation by history Leukocytosis ( nothing to suggest C diff ) Plan At this point as he appears stable I would stop Levofloxacin and reculture in 24 hours May need to restart Zosyn as he did appear to repond clinically despite resistance on culture 38 minutes critical care time spent Nikki SCHWARZ
[2016-07-05] MEDS: clonazePAM 0.5 MG TABLET GT SCH ×3 (06:59→21:21)
--- NOTE | 2016-07-05 07:58 | PN ---
Progress Note (short form) - Note Progress Note: Seen and examined in the ICU extubated yesterday cont to have strong productive cough WBC up this AM mental status at baseline last day of ABX Current Medications Acetaminophen (Tylenol Suppository -) 650 mg [place] Q4H PRN PRN Reason: FEVER OR PAIN Bisacodyl (Dulcolax Suppository -) 10 mg RC DAILY [facility] Last Admin: 07/04/16 09:59 Dose: 10 mg Chlorhexidine Gluconate (Hibiclens For Decolonization -) 1 applic TP HS [facility] Last Admin: 07/04/16 21:47 Dose: 1 applic Chlorhexidine Gluconate (Peridex -) 15 ml MM BID [facility] Last Admin: 07/04/16 21:47 Dose: 15 ml Clobazam (Onfi -) 10 mg PO DAILY [facility] Last Admin: 07/04/16 09:59 Dose: 10 mg Clonazepam (Klonopin -) 0.5 mg GT TID [facility] Last Admin: 07/05/16 06:59 Dose: 0.5 mg Enoxaparin Sodium (Lovenox -) 40 mg SQ DAILY [facility] Last Admin: 07/04/16 09:58 Dose: 40 mg Pantoprazole Sodium (Protonix 40mg Ivpb (Pre-Docked)) 100 mls @ 200 mls/hr IVPB DAILY [facility] Last Admin: 07/04/16 09:58 Dose: 200 mls/hr Ondansetron HCl (Zofran Injection) 4 mg IVPB Q6H PRN PRN Reason: NAUSEA Phenobarbital (Phenobarbital Liquid -) 40 mg GT BID [facility] Last Admin: 07/04/16 21:47 Dose: 40 mg Scopolamine HBr (Transderm-Scop -) 1 patch TD Q72H [facility] Last Admin: 07/02/16 11:10 Dose: 1 patch Vital Signs Period Temp Pulse Resp BP Sys/Linares Pulse Ox Last 24 Hr 99 F-99.9 F 54-104 12-28 97-135/48-66 94-98 Intake & Output 07/02/16 07/03/16 07/04/16 07/05/16 23:59 23:59 23:59 23:59 Intake Total 2634.2 948 1632 200 Output Total 2400 1350 500 200 Balance 234.2 -402 1132 0 Weight 43.091 kg 40.869 kg 41.322 kg 40.869 kg Neuro: awake does not follow commands Pulm: dimininshed in bases, very strong cough CV: s1 s2 bradycardia no mrg Abd: SNTND +PEG : esqueda Ext: b/l upper and lower contractures CBCD WBC 21.4 K/mm3 (4.0-10.0) H D 07/05/16 05:20 RBC 3.22 M/mm3 (4.00-5.60) L 07/05/16 05:20 Hgb 11.5 GM/dL (11.7-16.9) L 07/05/16 05:20 Hct 33.3 % (35.4-49) L 07/05/16 05:20 MCV 103.5 fl (80-96) H 07/05/16 05:20 MCHC 34.5 g/dl (32.0-35.9) 07/05/16 05:20 RDW 16.2 % (11.9-15.9) H 07/05/16 05:20 Plt Count 411 K/MM3 (134-434) D 07/05/16 05:20 MPV 8.7 fl (7.5-11.1) 07/05/16 05:20 CMP Sodium 141 mmol/L (136-145) 07/04/16 05:10 Potassium 3.9 mmol/L (3.5-5.1) 07/04/16 05:10 Chloride 106 mmol/L (98-107) 07/04/16 05:10 Carbon Dioxide 25 mmol/L (21-32) 07/04/16 05:10 Anion Gap 10 (8-16) 07/04/16 05:10 BUN 12 mg/dL (7-18) D 07/04/16 05:10 Creatinine 0.6 mg/dL (0.7-1.3) L 07/04/16 05:10 Creat Clearance w eGFR > 60 (>60) 07/04/16 05:10 Random Glucose 93 mg/dL (74-106) 07/04/16 05:10 Calcium 8.8 mg/dL (8.5-10.1) 07/04/16 05:10 Total Bilirubin 0.5 mg/dL (0.2-1.0) 07/04/16 05:10 AST 27 U/L (15-37) 07/04/16 05:10 ALT 42 U/L (12-78) 07/04/16 05:10 Alkaline Phosphatase 258 U/L (45-117) H 07/04/16 05:10 Total Protein 8.2 g/dl (6.4-8.2) 07/04/16 05:10 Albumin 3.1 g/dl (3.4-5.0) L 07/04/16 05:10 CXR: none today ASSESSMENT AND PLAN: Acute Hypoxic Respiratory Failure-- resolving Pneumonia/Sepsis Lactic Acidosis (?) Acute Pulmonary Edema Elevated LFTs Mental Retardation Seizure Disorder Functional Quadriplegia - s/p ABDX, if febrile reculture and start zosyn per ID - O2 for sat >92% - suction prn - DVT/GI prophylaxis - Enteral feeds - turn q2h - d/c esqueda and [place] cath, resend u/a and culture - will monitor today in ICU given tachypnia if stable can transfer to floor tomorrow Lilibeth ACNP Pulm/CCM CCTime 35"
[2016-07-05] MEDS: PANTOPRAZOLE SODIUM 100 ML IVPB SCH (10:01)
[2016-07-05] MEDS: PHENobarbital 20 MG/5 ML UNIT-DOSE CUP GT SCH ×2 (10:02→21:21)
[2016-07-05] MEDS: cloBAZam 10 MG TABLET PO SCH (10:02)
[2016-07-05] MEDS: BISACODYL 10 MG SUPP.RECT RC SCH (10:03)
[2016-07-05] MEDS: ENOXAPARIN NA (PORCINE) 40 MG/0.4 ML DISP.SYRIN SQ SCH (10:03)
[2016-07-05] MEDS: [UNRECOGNIZED DRUG - OTHER] GT SCH (10:03)
[2016-07-05] MEDS: MULTIVITAMIN GT SCH (10:03)
[2016-07-05] MEDS: CHLORHEXIDINE GLUCONATE 0.12% 15ML CUP MM SCH ×2 (10:05→21:21)
[2016-07-05] MEDS: SCOPOLAMINE HYDROBROMIDE 1 PATCH PATCH.TD72 TD SCH (10:18)
[2016-07-05 12:45] LABS: URINE APPEARANCE CLEAR; URINE BILIRUBIN NEGATIVE (NEGATIVE); URINE COLOR AMBER; URINE GLUCOSE (UA) NEGATIVE (NEGATIVE); URINE KETONE NEGATIVE (NEGATIVE); URINE NITRITE NEGATIVE (NEGATIVE); URINE UROBILINOGEN NEGATIVE E.U./dl (0.2-1.0)
[2016-07-05 12:57] LABS: URINE BLOOD 2+ (NEGATIVE); URINE LEUK ESTERASE TRACE (NEGATIVE); URINE PROTEIN 2+ (NEGATIVE)
[2016-07-05 13:02] LABS: URINE BACTERIA FEW /hpf (NONE SEEN); URINE HYALINE CAST 1 /lpf; URINE MUCUS RARE; URINE RBC 260 /hpf (0-3); URINE WBC 13 /hpf (3-5)
--- NOTE | 2016-07-05 16:14 | PN ---
Physical Exam: SUBJECTIVE: Patient seen and examined in ICU. Remains stable s/p extubation on NC, moving about in bed. Events: WBC increased to [address] discontinued, voiding freely with condom cath OBJECTIVE: Vital Signs Period Temp Pulse Resp BP Sys/Linares Pulse Ox Last 24 Hr 99 F-99.4 F 56-104 19-28 97-119/48-66 94-97 PE Neuro: alert, smiles, awake, NAD Pulm: scattered rhonchi, + NC + cough reflex CV: s1 s2 bradycardic no mrg Abd: S + Peg tube, nt nd : condom cath, yellow urine Ext: x4 limbs contractures, heel dressing placed Laboratory Results - last 24 hr 07/05/16 07/05/16 05:20 11:25 WBC 21.4 H D RBC 3.22 L Hgb 11.5 L Hct 33.3 L MCV 103.5 H MCHC 34.5 RDW 16.2 H Plt Count 411 D MPV 8.7 Neutrophils % 68.8 D Lymphocytes % 22.2 D Monocytes % 7.7 Eosinophils % 0.8 Basophils % 0.5 Urine Color Betty Urine Appearance Clear Urine pH 5.0 D Ur Specific [place] 1.030 Urine Protein 2+ H Urine Glucose (UA) Negative Urine Ketones Negative Urine Blood 2+ H Urine Nitrite Negative Urine Bilirubin Negative Urine Urobilinogen Negative Ur Leukocyte Esterase Trace H Urine RBC 260 Urine WBC 13 Urine Bacteria Few Hyaline Casts 1 Urine Mucus Rare Active Medications Generic Name Dose Route Start Last Admin Trade Name Freq PRN Reason Stop Dose Admin Acetaminophen 650 mg 06/26/16 12:21 Tylenol Suppository - [place] Q4H PRN FEVER OR PAIN Bisacodyl 10 mg 06/27/16 10:00 07/05/16 10:03 Dulcolax Suppository - RC 10 mg DAILY JORGE Administration Chlorhexidine Gluconate 1 applic 06/26/16 22:00 07/04/16 21:47 Hibiclens For Decolonization - TP 1 applic HS JORGE Administration Chlorhexidine Gluconate 15 ml 06/28/16 10:00 07/05/16 10:05 Peridex - MM 15 ml BID JORGE Administration Clobazam 10 mg 06/27/16 10:00 07/05/16 10:02 Onfi - PO 10 mg DAILY JORGE Administration Clonazepam 0.5 mg 06/26/16 14:00 07/05/16 14:57 Klonopin - GT 0.5 mg TID JORGE Administration Enoxaparin Sodium 40 mg 06/27/16 10:00 07/05/16 10:03 Lovenox - SQ 40 mg DAILY JORGE Administration Pantoprazole Sodium 100 mls @ 200 mls/hr 07/01/16 10:00 07/05/16 10:01 Protonix 40mg Ivpb (Pre-Docked) IVPB 200 mls/hr DAILY JORGE Administration Ondansetron HCl 4 mg 06/26/16 12:21 Zofran Injection IVPB Q6H PRN NAUSEA Phenobarbital 40 mg 07/01/16 22:00 07/05/16 10:02 Phenobarbital Liquid - GT 40 mg BID JORGE Administration Scopolamine HBr 1 patch 07/02/16 09:30 07/05/16 10:18 Transderm-Scop - TD 1 patch Q72H JORGE Administration Assessment: 21 year old male [place] resident with significant PMH of herpetic encephalitis, Significant MR, epilepsy, chronic hypothermia, and asthma admitted with acute respiratory failure. He was intubated on 06/26 in the ED, extubated on 06/27 with re intubation on 06/27. Plan: 1. Severe sepsis d/t Acute Respiratory failure 06/12 pna - Extubated 07/04 - Stable on NC - CXR in AM - Continue scopalamine patch 2. Aspiration PNA d/t citrobacter resistant isolated - Leukocytosis, possible reactive from coughing s/p extubation yesterday - Re culture tomorrow; may need to restart zosyn - Levaquin discontinued today (4 days) - Monitor for fevers - ID input appreciated 3. UTI - LE +1, wbc 27 - Urine cx pending - Completed levaquin today 4. Bradycardia - Resolved 5. Hypothermia, resolved - Baseline 94 F, goal 95 F as per [facility] - Tenisha cruz if temperature < 94F 6. Seizure Disorder - Continue clonazepam TID, clobazam 10mg daily, phenobarbital BID 7. Functional Quadriplegia - Contracted to all four extremities - Turn and position q2 hours, pressure ulcer prophylaxis 8. Nutrition - Promote - Prosource 30ml/day 9. DVT ppx - Lovenox 40mg sq, SCDs Visit type - Emergency Visit Emergency Visit: Yes ED Registration Date: 06/26/16 Care time: The patient presented to the Emergency Department on the above date and was hospitalized for further evaluation of their emergent condition. - New Patient This patient is new to me today: No - Critical Care Critical Care patient: No
[2016-07-05] MEDS: CHLORHEXIDINE GLUCONATE 4% CLEANSER FOR DECOLONIZATION TP SCH (21:20)
[2016-07-06] MEDS: clonazePAM 0.5 MG TABLET GT SCH ×3 (05:53→23:29)
[2016-07-06 06:20] LABS: BASOPHIL 1.2 % (0-2.0); EOSINOPHIL 0.7 % (0-4.5); MCH 35.8 pg (25.7-33.7); MCHC 34.3 g/dl (32.0-35.9); MEAN CELL VOLUME 104.2 fl (80-96); MEAN PLT VOLUME 8.7 fl (7.5-11.1); NEUTROPHILS 57.3 % (42.8-82.8); PLATELET COUNT 440 K/MM3 (134-434); RDW 16.4 % (11.9-15.9); WHITE BLOOD COUNT 12.3 K/mm3 (4.0-10.0)
[2016-07-06 07:47] LABS: CALCIUM 8.9 mg/dL (8.5-10.1)
[2016-07-06 07:49] LABS: CREATININE 0.5 mg/dL (0.7-1.3)
--- NOTE | 2016-07-06 08:47 | PN ---
Progress Note (short form) - Note Progress Note: Seen and examined in the ICU respiratory status stable extubated d/c esqueda in setting of worsening leukocytosis, [place] cath placed w/o issue WBC improving this AM off ABX Low grade fever (99.4) Active Medications Acetaminophen (Tylenol Suppository -) 650 mg SD Q4H PRN PRN Reason: FEVER OR PAIN Amino Acids (Prosource No Carb Liquid Pkt) 30 ml PEG DAILY [facility] Bisacodyl (Dulcolax Suppository -) 10 mg RC DAILY [facility] Last Admin: 07/05/16 10:03 Dose: 10 mg Chlorhexidine Gluconate (Hibiclens For Decolonization -) 1 applic TP HS [facility] Last Admin: 07/05/16 21:20 Dose: 1 applic Chlorhexidine Gluconate (Peridex -) 15 ml MM BID [facility] Last Admin: 07/05/16 21:21 Dose: 15 ml Clobazam (Onfi -) 10 mg PO DAILY [facility] Last Admin: 07/05/16 10:02 Dose: 10 mg Clonazepam (Klonopin -) 0.5 mg GT TID [facility] Last Admin: 07/06/16 05:53 Dose: 0.5 mg Enoxaparin Sodium (Lovenox -) 40 mg SQ DAILY [facility] Last Admin: 07/05/16 10:03 Dose: 40 mg Pantoprazole Sodium (Protonix 40mg Ivpb (Pre-Docked)) 100 mls @ 200 mls/hr IVPB DAILY [facility] Last Admin: 07/05/16 10:01 Dose: 200 mls/hr Ondansetron HCl (Zofran Injection) 4 mg IVPB Q6H PRN PRN Reason: NAUSEA Phenobarbital (Phenobarbital Liquid -) 40 mg GT BID [facility] Last Admin: 07/05/16 21:21 Dose: 40 mg Scopolamine HBr (Transderm-Scop -) 1 patch TD Q72H [facility] Last Admin: 07/05/16 10:18 Dose: 1 patch Vital Signs Period Temp Pulse Resp BP Sys/Linares Pulse Ox Last 24 Hr 98.4 F-99.4 F 49-75 17-28 92-113/47-74 94-95 Intake & Output 07/03/16 07/04/16 07/05/16 07/06/16 23:59 23:59 23:59 23:59 Intake Total 948 1632 1290 680 Output Total 1350 500 740 100 Balance -402 1132 550 580 Weight 40.869 kg 41.322 kg 40.869 kg 40.455 kg General: awake and interactive, non verbal appears at baseline Pulm: few scat rhonchi, strong cough CV: asad Abd: SNTND +PEG Ext: contracted CBCD WBC 12.3 K/mm3 (4.0-10.0) H D 07/06/16 05:20 RBC 3.05 M/mm3 (4.00-5.60) L 07/06/16 05:20 Hgb 10.9 GM/dL (11.7-16.9) L 07/06/16 05:20 Hct 31.8 % (35.4-49) L 07/06/16 05:20 MCV 104.2 fl (80-96) H 07/06/16 05:20 MCHC 34.3 g/dl (32.0-35.9) 07/06/16 05:20 RDW 16.4 % (11.9-15.9) H 07/06/16 05:20 Plt Count 440 K/MM3 (134-434) H 07/06/16 05:20 MPV 8.7 fl (7.5-11.1) 07/06/16 05:20 CMP Sodium 139 mmol/L (136-145) 07/06/16 05:20 Potassium 3.7 mmol/L (3.5-5.1) 07/06/16 05:20 Chloride 103 mmol/L (98-107) 07/06/16 05:20 Carbon Dioxide 27 mmol/L (21-32) 07/06/16 05:20 Anion Gap 9 (8-16) 07/06/16 05:20 BUN 15 mg/dL (7-18) D 07/06/16 05:20 Creatinine 0.5 mg/dL (0.7-1.3) L 07/06/16 05:20 Creat Clearance w eGFR > 60 (>60) 07/04/16 05:10 Calcium 8.9 mg/dL (8.5-10.1) 07/06/16 05:20 Total Bilirubin 0.5 mg/dL (0.2-1.0) 07/04/16 05:10 AST 27 U/L (15-37) 07/04/16 05:10 ALT 42 U/L (12-78) 07/04/16 05:10 Alkaline Phosphatase 258 U/L (45-117) H 07/04/16 05:10 Total Protein 8.2 g/dl (6.4-8.2) 07/04/16 05:10 Albumin 3.1 g/dl (3.4-5.0) L 07/04/16 05:10 Microbiology 06/29/16 09:10 Blood - Peripheral Venous Blood Culture - Final NO GROWTH AFTER 5 DAYS INCUBATION 06/29/16 09:00 Blood - Peripheral Venous Blood Culture - Final NO GROWTH AFTER 5 DAYS INCUBATION 06/27/16 10:00 Nasopharyngeal Swab Respiratory Virus Panel - Final 06/26/16 10:00 Blood - Peripheral Venous Blood Culture - Final NO GROWTH AFTER 5 DAYS INCUBATION 06/26/16 10:00 Blood - Peripheral Venous Blood Culture - Final NO GROWTH AFTER 5 DAYS INCUBATION 06/28/16 10:00 Sputum - Endotrachea Suction/Ventilator Gram Stain - Final 06/28/16 10:00 Sputum - Endotrachea Suction/Ventilator Sputum Culture - Final Diphtheroid/Corynebacterium Citrobacter Koseri 06/26/16 17:00 Urine - Urine Esqueda Urine Culture - Final NO GROWTH OBTAINED 06/26/16 17:00 Urine For Antigen Detection Legionella Antigen - Final 06/26/16 17:00 Urine For Antigen Detection Streptococcus pneumoniae Antigen (M - Final 06/27/16 10:00 Nasopharyngeal Swab Influenza Types A,B Antigen (VANCE) - Final 06/27/16 10:00 Nasopharyngeal Swab - Final ASSESSMENT AND PLAN: Acute Hypoxic Respiratory Failure-- resolving Pneumonia/Sepsis Lactic Acidosis (?) Acute Pulmonary Edema Elevated LFTs Mental Retardation Seizure Disorder Functional Quadriplegia - s/p ABX, if febrile >101 reculture and start zosyn per ID - O2 for sat >92% - suction prn - DVT/GI prophylaxis - Enteral feeds - turn q2h - [place] cath, resend u/a and culture - ok for floor transfer given stable resp status >36hr post extubation Boerem ACNP Pulm/CCM CCTime 35"
[2016-07-06] MEDS ORDERED: PT OWN MED DRAWER 7, Y5N ONE ×2 (09:35→23:26)
[2016-07-06] MEDS: MULTIVITAMIN GT SCH (10:01)
[2016-07-06] MEDS: ENOXAPARIN NA (PORCINE) 40 MG/0.4 ML DISP.SYRIN SQ SCH (10:01)
[2016-07-06] MEDS: [UNRECOGNIZED DRUG - OTHER] GT SCH (10:01)
[2016-07-06] MEDS: BISACODYL 10 MG SUPP.RECT RC SCH (10:01)
[2016-07-06] MEDS: CHLORHEXIDINE GLUCONATE 0.12% 15ML CUP MM SCH ×2 (10:02→23:29)
[2016-07-06] MEDS: PHENobarbital 20 MG/5 ML UNIT-DOSE CUP GT SCH ×2 (10:02→23:29)
[2016-07-06] MEDS: PANTOPRAZOLE SODIUM 100 ML IVPB SCH (10:03)
[2016-07-06] MEDS: AMINO ACIDS/PROTEIN HYDROLYS 30 ML LIQUID.PKT PEG SCH (10:03)
[2016-07-06] MEDS: cloBAZam 10 MG TABLET PO SCH (10:03)
--- NOTE | 2016-07-06 11:25 | PN ---
Progress Note, Physician History of Present Illness: Not verbally responsive Remains extubated Productive cough at times Breathing non-labored Low grade temp WBC improved Sputum c/s probable CRE - Current Medication List Current Medications: Active Medications Acetaminophen (Tylenol Suppository -) 650 mg [place] Q4H PRN PRN Reason: FEVER OR PAIN Amino Acids (Prosource No Carb Liquid Pkt) 30 ml PEG DAILY [facility] Last Admin: 07/06/16 10:03 Dose: 30 ml Bisacodyl (Dulcolax Suppository -) 10 mg RC DAILY [facility] Last Admin: 07/06/16 10:01 Dose: 10 mg Chlorhexidine Gluconate (Hibiclens For Decolonization -) 1 applic TP HS [facility] Last Admin: 07/05/16 21:20 Dose: 1 applic Chlorhexidine Gluconate (Peridex -) 15 ml MM BID [facility] Last Admin: 07/06/16 10:02 Dose: Not Given Clobazam (Onfi -) 10 mg PO DAILY [facility] Last Admin: 07/06/16 10:03 Dose: 10 mg Clonazepam (Klonopin -) 0.5 mg GT TID [facility] Last Admin: 07/06/16 05:53 Dose: 0.5 mg Enoxaparin Sodium (Lovenox -) 40 mg SQ DAILY [facility] Last Admin: 07/06/16 10:01 Dose: 40 mg Pantoprazole Sodium (Protonix 40mg Ivpb (Pre-Docked)) 100 mls @ 200 mls/hr IVPB DAILY [facility] Last Admin: 07/06/16 10:03 Dose: 200 mls/hr Ondansetron HCl (Zofran Injection) 4 mg IVPB Q6H PRN PRN Reason: NAUSEA Phenobarbital (Phenobarbital Liquid -) 40 mg GT BID [facility] Last Admin: 07/06/16 10:02 Dose: 40 mg Scopolamine HBr (Transderm-Scop -) 1 patch TD Q72H [facility] Last Admin: 07/05/16 10:18 Dose: 1 patch - Objective Vital Signs: Vital Signs Temperature 100.3 F H 07/06/16 10:00 Pulse Rate 46 L 07/06/16 10:00 Respiratory Rate 18 07/06/16 10:00 Blood Pressure 104/60 07/06/16 10:00 O2 Sat by Pulse Oximetry (%) 97 02/26/17 09:15 Constitutional: Yes: No Distress Cardiovascular: Yes: Regular Rate and Rhythm, S1 Respiratory: Yes: Rhonchi Gastrointestinal: Yes: Normal Bowel Sounds, Soft, Other (+ GT). 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
--- NOTE | 2016-07-06 16:26 | PN ---
Physical Exam: SUBJECTIVE: Patient seen and examined. Febrile this afternoon, no rigors, appears calm, stable off RA, NC is under chin OBJECTIVE: Vital Signs Period Temp Pulse Resp BP Sys/Linares Pulse Ox Last 24 Hr 98.4 F-100.3 F 46-75 17-26 92-111/46-74 94-97 PE Neuro: alert, smiles, awake, NAD Pulm: scattered rhonchi, + cough reflex CV: s1 s2 bradycardia no mrg Abd: S + Peg tube, nt nd : condom cath, yellow urine Ext: x4 limbs contractures, heel dressing placed Laboratory Results - last 24 hr 07/06/16 07/06/16 05:20 05:20 WBC 12.3 H D RBC 3.05 L Hgb 10.9 L Hct 31.8 L MCV 104.2 H MCHC 34.3 RDW 16.4 H Plt Count 440 H MPV 8.7 Neutrophils % 57.3 Lymphocytes % 30.3 D Monocytes % 10.5 H Eosinophils % 0.7 Basophils % 1.2 Sodium 139 Potassium 3.7 Chloride 103 Carbon Dioxide 27 Anion Gap 9 BUN 15 D Creatinine 0.5 L Random Glucose 112 H D Calcium 8.9 Active Medications Generic Name Dose Route Start Last Admin Trade Name Freq PRN Reason Stop Dose Admin Acetaminophen 650 mg 06/26/16 12:21 Tylenol Suppository - MD Q4H PRN FEVER OR PAIN Amino Acids 30 ml 07/06/16 10:00 07/06/16 10:03 Prosource No Carb Liquid Pkt PEG 30 ml DAILY JORGE Administration Bisacodyl 10 mg 06/27/16 10:00 07/06/16 10:01 Dulcolax Suppository - RC 10 mg DAILY JORGE Administration Chlorhexidine Gluconate 1 applic 06/26/16 22:00 07/05/16 21:20 Hibiclens For Decolonization - TP 1 applic HS JORGE Administration Chlorhexidine Gluconate 15 ml 06/28/16 10:00 07/06/16 10:02 Peridex - MM Not Given BID JORGE Clobazam 10 mg 06/27/16 10:00 07/06/16 10:03 Onfi - PO 10 mg DAILY JORGE Administration Clonazepam 0.5 mg 06/26/16 14:00 07/06/16 14:24 Klonopin - GT 0.5 mg TID JORGE Administration Enoxaparin Sodium 40 mg 06/27/16 10:00 07/06/16 10:01 Lovenox - SQ 40 mg DAILY JORGE Administration Pantoprazole Sodium 100 mls @ 200 mls/hr 07/01/16 10:00 07/06/16 10:03 Protonix 40mg Ivpb (Pre-Docked) IVPB 200 mls/hr DAILY JORGE Administration Ondansetron HCl 4 mg 06/26/16 12:21 Zofran Injection IVPB Q6H PRN NAUSEA Phenobarbital 40 mg 07/01/16 22:00 07/06/16 10:02 Phenobarbital Liquid - GT 40 mg BID JORGE Administration Scopolamine HBr 1 patch 07/02/16 09:30 07/05/16 10:18 Transderm-Scop - TD 1 patch Q72H JORGE Administration Abx: Levaquin 07/02- 07/05 Assessment: 21 year old male [place] resident with significant PMHx of herpetic encephalitis, Significant MR, epilepsy, chronic hypothermia, and asthma admitted with acute respiratory failure. He was intubated on 06/26 in the ED, extubated on 06/27 with re intubation on 06/27. Plan: 1. Severe sepsis d/t Acute Respiratory failure 06/12 pna, extubated 07/04 - Stable on NC - CXR w/o any discrete infiltrate - Scopolamine patch q72hr 2. Aspiration PNA d/t citrobacter resistant isolated - Leukocytosis improved - Febrile this afternoon, will re culture - Hold Zosyn for now - D/w above with ID 3. Bradycardia - Resolved 4. Hypothermia, resolved - Baseline 94 F, goal 95 F as per [facility] - [facility] cruz if temperature < 94F 5. Seizure Disorder - Continue clonazepam TID, clobazam 10mg daily, phenobarbital BID 6. Functional Quadriplegia - Contracted to all four extremities - Turn and position q2 hours, pressure ulcer prophylaxis 7. Nutrition - Promote - Prosource 30ml/day 8. DVT ppx - Lovenox 40mg sq, SCDs Visit type - Emergency Visit Emergency Visit: Yes ED Registration Date: 06/26/16 Care time: The patient presented to the Emergency Department on the above date and was hospitalized for further evaluation of their emergent condition. - New Patient This patient is new to me today: No - Critical Care Critical Care patient: No
[2016-07-06] MEDS: CHLORHEXIDINE GLUCONATE 4% CLEANSER FOR DECOLONIZATION TP SCH (23:29)
[2016-07-07] MEDS: clonazePAM 0.5 MG TABLET GT SCH ×3 (05:56→21:53)
[2016-07-07 06:05] LABS: MCH 35.9 pg (25.7-33.7); MCHC 34.5 g/dl (32.0-35.9); MEAN CELL VOLUME 103.9 fl (80-96); MEAN PLT VOLUME 8.9 fl (7.5-11.1); PLATELET COUNT 470 K/MM3 (134-434); RDW 16.3 % (11.9-15.9); WHITE BLOOD COUNT 11.6 K/mm3 (4.0-10.0)
[2016-07-07 06:26] LABS: CALCIUM 8.8 mg/dL (8.5-10.1); CREATININE 0.6 mg/dL (0.7-1.3); MAGNESIUM 1.9 mg/dL (1.8-2.4)
[2016-07-07] MEDS ORDERED: PT OWN MED DRAWER 7, Y5N ONE ×2 (10:37→21:49)
[2016-07-07] MEDS: PANTOPRAZOLE SODIUM 100 ML IVPB SCH (10:41)
[2016-07-07] MEDS: BISACODYL 10 MG SUPP.RECT RC SCH (10:42)
[2016-07-07] MEDS: PHENobarbital 20 MG/5 ML UNIT-DOSE CUP GT SCH ×2 (10:42→21:53)
[2016-07-07] MEDS: ENOXAPARIN NA (PORCINE) 40 MG/0.4 ML DISP.SYRIN SQ SCH (10:42)
[2016-07-07] MEDS: AMINO ACIDS/PROTEIN HYDROLYS 30 ML LIQUID.PKT PEG SCH (10:43)
--- NOTE | 2016-07-07 11:29 | PN ---
Physical Exam: SUBJECTIVE: Patient seen and examined. Hypotensive this AM, now resolved on own. No fevers recorded overnight. PT awake, smiling in bed. OBJECTIVE: Vital Signs Period Temp Pulse Resp BP Sys/Linares Pulse Ox Last 24 Hr 98.8 F-100.1 F 47-68 18-28 84-108/38-63 97-97 PE Neuro: alert, awake, non verbal Pulm: diminished with crackles, +secretions, + NC CV: s1 s2 bradycardia no mrg Abd: S + Peg tube, nt nd : condom cath, yellow urine Ext: x4 limbs contractures, heel dressing placed Laboratory Results - last 24 hr 07/07/16 07/07/16 05:00 05:00 WBC 11.6 H RBC 3.14 L Hgb 11.3 L Hct 32.7 L MCV 103.9 H MCHC 34.5 RDW 16.3 H Plt Count 470 H MPV 8.9 Sodium 139 Potassium 3.9 Chloride 101 Carbon Dioxide 30 Anion Gap 8 BUN 17 Creatinine 0.6 L Random Glucose 113 H Calcium 8.8 Phosphorus 4.0 Magnesium 1.9 Active Medications Generic Name Dose Route Start Last Admin Trade Name Freq PRN Reason Stop Dose Admin Acetaminophen 650 mg 06/26/16 12:21 Tylenol Suppository - [place] Q4H PRN FEVER OR PAIN Amino Acids 30 ml 07/06/16 10:00 07/07/16 10:43 Prosource No Carb Liquid Pkt PEG 30 ml DAILY [facility]ORGE Administration Bisacodyl 10 mg 06/27/16 10:00 07/07/16 10:42 Dulcolax Suppository - RC 10 mg DAILY [facility] Administration Chlorhexidine Gluconate 15 ml 06/28/16 10:00 07/06/16 23:29 Peridex - MM 15 ml BID JORGE Administration Clobazam 10 mg 06/27/16 10:00 07/06/16 10:03 Onfi - PO 10 mg DAILY [facility]GE Administration Clonazepam 0.5 mg 06/26/16 14:00 07/07/16 05:56 Klonopin - GT 0.5 mg TID JORGE Administration Enoxaparin Sodium 40 mg 06/27/16 10:00 07/07/16 10:42 Lovenox - SQ 40 mg DAILY [facility] Administration Pantoprazole Sodium 100 mls @ 200 mls/hr 07/01/16 10:00 07/07/16 10:41 Protonix 40mg Ivpb (Pre-Docked) IVPB 200 mls/hr DAILY [facility] Administration Ondansetron HCl 4 mg 06/26/16 12:21 Zofran Injection IVPB Q6H PRN NAUSEA Phenobarbital 40 mg 07/01/16 22:00 07/07/16 10:42 Phenobarbital Liquid - GT 40 mg BID JORGE Administration Scopolamine HBr 1 patch 07/02/16 09:30 07/05/16 10:18 Transderm-Scop - TD 1 patch Q72H JORGE Administration Imaging: CXR 07/06: w/o any discrete infiltrate Abx: Levaquin 07/02- 07/05 Assessment: 21 year old male [place] resident with significant PMHx of herpetic encephalitis, Significant MR, epilepsy, chronic hypothermia, and asthma admitted with acute respiratory failure. He was intubated on 06/26 in the ED, extubated on 06/27 with re intubation on 06/27. Plan: 1. Severe sepsis d/t Acute Respiratory failure 06/12 pna, extubated 07/04 - Stable on NC - Scopolamine patch q72hr 2. Aspiration PNA d/t citrobacter resistant isolated - Leukocytosis down - Urine cx negative - Repeat blood cultures - pending 3. Bradycardia - Asymptomatic 4. Hypothermia, resolved - Baseline 94 F, goal 95 F as per [facility] if temperature < 94F 5. Seizure Disorder - Continue clonazepam TID, clobazam 10mg daily, phenobarbital BID 6. Functional Quadriplegia - Contracted to all four extremities - Turn and position q2 hours, pressure ulcer prophylaxis 7. Nutrition - Promote - Prosource 30ml/day 8. DVT ppx - Lovenox 40mg sq, SCDs Visit type - Emergency Visit Emergency Visit: Yes ED Registration Date: 06/26/16 Care time: The patient presented to the Emergency Department on the above date and was hospitalized for further evaluation of their emergent condition. - New Patient This patient is new to me today: No - Critical Care Critical Care patient: No
--- NOTE | 2016-07-07 12:35 | PN ---
Progress Note (short form) - Note Progress Note: extubated less cough NAD Vital Signs Period Temp Pulse Resp BP Sys/Linares Pulse Ox Last 24 Hr 98.8 F-100.1 F 47-68 18-28 84-108/38-63 97-97 cor-rrr lungs scattered rhonchi abd soft,nt ext no edema CBC, BMP 07/07/16 05:00 07/07/16 05:00 Microbiology 07/05/16 11:25 Urine - Urine Lane Urine Culture - Final NO GROWTH OBTAINED 06/29/16 09:10 Blood - Peripheral Venous Blood Culture - Final NO GROWTH AFTER 5 DAYS INCUBATION 06/29/16 09:00 Blood - Peripheral Venous Blood Culture - Final NO GROWTH AFTER 5 DAYS INCUBATION 06/27/16 10:00 Nasopharyngeal Swab Respiratory Virus Panel - Final 06/26/16 10:00 Blood - Peripheral Venous Blood Culture - Final NO GROWTH AFTER 5 DAYS INCUBATION 06/26/16 10:00 Blood - Peripheral Venous Blood Culture - Final NO GROWTH AFTER 5 DAYS INCUBATION 06/28/16 10:00 Sputum - Endotrachea Suction/Ventilator Gram Stain - Final 06/28/16 10:00 Sputum - Endotrachea Suction/Ventilator Sputum Culture - Final Diphtheroid/Corynebacterium Citrobacter Koseri 06/26/16 17:00 Urine - Urine Lane Urine Culture - Final NO GROWTH OBTAINED 06/26/16 17:00 Urine For Antigen Detection Legionella Antigen - Final 06/26/16 17:00 Urine For Antigen Detection Streptococcus pneumoniae Antigen (M - Final 06/27/16 10:00 Nasopharyngeal Swab Influenza Types A,B Antigen (VANCE) - Final 06/27/16 10:00 Nasopharyngeal Swab - Final a/p stable off antibiotics would observe suspect resistant citrobacter is a colonizer Problem List - Problems (1) Acute and chronic respiratory failure with hypoxia Code(s): J96.21 - ACUTE AND CHRONIC RESPIRATORY FAILURE WITH HYPOXIA (2) Aspiration pneumonia Code(s): J69.0 - PNEUMONITIS DUE TO INHALATION OF FOOD AND VOMIT
[2016-07-07] MEDS: [UNRECOGNIZED DRUG - OTHER] GT SCH (13:20)
[2016-07-07] MEDS: cloBAZam 10 MG TABLET PO SCH (13:20)
[2016-07-07] MEDS: MULTIVITAMIN GT SCH (13:20)
[2016-07-07] MEDS: CHLORHEXIDINE GLUCONATE 0.12% 15ML CUP MM SCH ×2 (13:21→22:58)
--- NOTE | 2016-07-07 17:06 | PN ---
Progress Note, Physician History of Present Illness: pulmonary alert,no distress,-tachypnea,-resp distress - Current Medication List Current Medications: Active Medications Acetaminophen (Tylenol Suppository -) 650 mg MA Q4H PRN PRN Reason: FEVER OR PAIN Amino Acids (Prosource No Carb Liquid Pkt) 30 ml PEG DAILY [facility] Last Admin: 07/07/16 10:43 Dose: 30 ml Bisacodyl (Dulcolax Suppository -) 10 mg RC DAILY [facility] Last Admin: 07/07/16 10:42 Dose: 10 mg Chlorhexidine Gluconate (Peridex -) 15 ml MM BID [facility] Last Admin: 07/07/16 13:21 Dose: Not Given Clobazam (Onfi -) 10 mg PO DAILY [facility] Last Admin: 07/07/16 13:20 Dose: 10 mg Clonazepam (Klonopin -) 0.5 mg GT TID [facility] Last Admin: 07/07/16 13:20 Dose: 0.5 mg Enoxaparin Sodium (Lovenox -) 40 mg SQ DAILY [facility] Last Admin: 07/07/16 10:42 Dose: 40 mg Pantoprazole Sodium (Protonix 40mg Ivpb (Pre-Docked)) 100 mls @ 200 mls/hr IVPB DAILY [facility] Last Admin: 07/07/16 10:41 Dose: 200 mls/hr Ondansetron HCl (Zofran Injection) 4 mg IVPB Q6H PRN PRN Reason: NAUSEA Phenobarbital (Phenobarbital Liquid -) 40 mg GT BID [facility] Last Admin: 07/07/16 10:42 Dose: 40 mg Scopolamine HBr (Transderm-Scop -) 1 patch TD Q72H [facility] Last Admin: 07/05/16 10:18 Dose: 1 patch - Objective Vital Signs: Vital Signs Temperature 99.4 F 07/07/16 15:56 Pulse Rate 63 07/07/16 15:56 Respiratory Rate 18 07/07/16 15:56 Blood Pressure 111/56 07/07/16 15:56 O2 Sat by Pulse Oximetry (%) 97 07/07/16 09:00 Constitutional: Yes: Calm, Thin Eyes: Yes: WNL HENT: Yes: WNL Neck: Yes: WNL Cardiovascular: Yes: Regular Rate and Rhythm, S1 Respiratory: Yes: CTA Bilaterally (rhonchi), Rhonchi Gastrointestinal: Yes: Normal Bowel Sounds, Soft Extremities: Yes: WNL Edema: No Neurological: Yes: Alert Labs: CBC, BMP 07/07/16 05:00 07/07/16 05:00 INR, PTT INR 1.14 (0.82-1.09) 06/26/16 10:13 Problem List - Problems (1) Acute and chronic respiratory failure with hypoxia Code(s): J96.21 - ACUTE AND CHRONIC RESPIRATORY FAILURE WITH HYPOXIA (2) Elevated alkaline phosphatase level Code(s): R74.8 - ABNORMAL LEVELS OF OTHER SERUM ENZYMES (3) Gram-negative pneumonia Code(s): J15.6 - PNEUMONIA DUE TO OTHER AEROBIC GRAM-NEGATIVE BACTERIA (4) Hypotension Code(s): I95.9 - HYPOTENSION, UNSPECIFIED (5) Lactic acidosis Code(s): E87.2 - ACIDOSIS (6) Seizure Code(s): R56.9 - UNSPECIFIED CONVULSIONS (7) Transaminitis Code(s): R74.0 - NONSPEC ELEV OF LEVELS OF TRANSAMNS & LACTIC ACID DEHYDRGNSE (8) Asthma Code(s): J45.909 - UNSPECIFIED ASTHMA, UNCOMPLICATED (9) Epilepsy Code(s): G40.909 - EPILEPSY, UNSP, NOT INTRACTABLE, WITHOUT STATUS EPILEPTICUS (10) Profound mental retardation Code(s): F73 - PROFOUND INTELLECTUAL DISABILITIES (11) Aspiration pneumonia Code(s): J69.0 - PNEUMONITIS DUE TO INHALATION OF FOOD AND VOMIT (12) Severe sepsis Code(s): A41.9 - SEPSIS, UNSPECIFIED ORGANISM R65.20 - SEVERE SEPSIS WITHOUT SEPTIC SHOCK Assessment/Plan ASSESSMENT AND PLAN: Acute Hypoxic Respiratory Failure improved Pneumonia/Sepsis improved Lactic Acidosis RESOLVED (?) Acute Pulmonary Edema Elevated LFTs Mental Retardation Seizure Disorder Functional Quadriplegia - O2 for sat >92% - suction prn - DVT/GI prophylaxis - Enteral feeds DR VILLALTA
[2016-07-08] MEDS: clonazePAM 0.5 MG TABLET GT SCH ×2 (06:05→14:00)
[2016-07-08 07:50] LABS: BASOPHIL 0.4 % (0-2.0); EOSINOPHIL 0.5 % (0-4.5); MCH 36.2 pg (25.7-33.7); MCHC 34.7 g/dl (32.0-35.9); MEAN CELL VOLUME 104.2 fl (80-96); MEAN PLT VOLUME 8.4 fl (7.5-11.1); PLATELET COUNT 473 K/MM3 (134-434); WHITE BLOOD COUNT 12.8 K/mm3 (4.0-10.0)
[2016-07-08] MEDS: PANTOPRAZOLE SODIUM 100 ML IVPB SCH (11:26)
[2016-07-08] MEDS: cloBAZam 10 MG TABLET PO SCH (11:26)
[2016-07-08] MEDS: BISACODYL 10 MG SUPP.RECT RC SCH (11:28)
[2016-07-08] MEDS: ENOXAPARIN NA (PORCINE) 40 MG/0.4 ML DISP.SYRIN SQ SCH (11:28)
[2016-07-08] MEDS: [UNRECOGNIZED DRUG - OTHER] GT SCH (11:28)
[2016-07-08] MEDS: MULTIVITAMIN GT SCH (11:28)
[2016-07-08] MEDS: AMINO ACIDS/PROTEIN HYDROLYS 30 ML LIQUID.PKT PEG SCH (11:29)
[2016-07-08] MEDS: PHENobarbital 20 MG/5 ML UNIT-DOSE CUP GT SCH (11:29)
[2016-07-08] MEDS: CHLORHEXIDINE GLUCONATE 0.12% 15ML CUP MM SCH (11:30)
[2016-07-08 12:30] VITALS: PULSE 70
[2016-07-08] MEDS: SCOPOLAMINE HYDROBROMIDE 1 PATCH PATCH.TD72 TD SCH (14:00)
[2016-07-08 15:01] VITALS: BP 110/50; TEMP 98.9
--- NOTE | 2016-07-08 15:35 | DS ---
Physical Exam: SUBJECTIVE: Patient seen and examined. He is stable on NC, awake and smiling in bed. No fevers overnight. Off abx OBJECTIVE: Vital Signs Period Temp Pulse Resp BP Sys/Linares Pulse Ox Last 24 Hr 97.5 F-100 F 56-70 18-25 77-111/38-56 97-99 PE Neuro: alert, awake, non verbal Pulm: + crackles, +secretions, + NC CV: s1 s2 bradycardia no mrg Abd: S + Peg tube, nt nd : condom cath, yellow urine Ext: x4 limbs contractures, heel dressing placed Laboratory Results - last 24 hr 07/08/16 06:45 WBC 12.8 H RBC 3.18 L Hgb 11.5 L Hct 33.1 L MCV 104.2 H MCHC 34.7 RDW 16.0 H Plt Count 473 H MPV 8.4 Neutrophils % 70.0 D Lymphocytes % 21.3 D Monocytes % 7.8 Eosinophils % 0.5 Basophils % 0.4 HOSPITAL COURSE: Date of Admission:06/26/16 Date of Discharge: 07/08/16 Minutes to complete discharge: 35 Discharge Summary Reason For Visit: HERPES ENCEPHALITIS,DEPENDENCE ON OXYGEN Current Active Problems Acute and chronic respiratory failure with hypoxia (Acute) Elevated alkaline phosphatase level (Acute) Gram-negative pneumonia (Acute) Hypotension (Acute) Hypothermia (Acute) Lactic acidosis (Acute) Seizure (Acute) Transaminitis (Acute) Asthma (Chronic) Epilepsy (Chronic) Profound mental retardation (Chronic) Hospital Course: Initial Hospital Course: Briefly, this 21 year old male resident of [facility] admitted with distress and hypoxia. EMS found his oxygen saturation to be in the 70s. He was noted to have a partial seizure in the ambulance. He was intubated in the ER. Subsequent Hospital Course/Progress Note/Discharge Summary by a/p: Assessment: 21 year old male [place] resident with significant PMHx of herpetic encephalitis, Significant MR, epilepsy, chronic hypothermia, and asthma admitted with acute respiratory failure. He was intubated on 06/26 in the ED, extubated on 06/27 with re intubation on 06/27. Plan: 1. Severe sepsis d/t Acute Respiratory failure 06/12 pna, extubated 07/04 - Stable on NC - s/p zosyn 6 days - Levaquin 07/02- 07/05 2. Aspiration PNA d/t citrobacter resistant isolated - Leukocytosis down - Stable off abx 3. Bradycardia - Asymptomatic 4. Hypotension - Resume home baclofen on discharge 6. Hypothermia, resolved - Baseline 94 F, goal 95 F as per [facility] if temperature < 94F 7. Seizure Disorder - Resume home meds - Continue clonazepam TID, clobazam 10mg daily, phenobarbital BID 8. Functional Quadriplegia - Contracted to all four extremities - Turn and position q2 hours, pressure ulcer prophylaxis 9. Nutrition - Promote 54ml/hr 14ml h20 flush Dispo: - D/w Dr. Valentino he will accept pt to [place]. Thank you Condition: Stable - Instructions Diet, Activity, Other Instructions: Please return to the ED for any new, persistent, or worsening symptoms. Follow up with your PCP. Resume home medications as directed Resume TF Continue suctioning and nasal cannula Referrals: Jose Luis Valentino Jr [Non Staff, Medical] - Disposition: HALFWAY FACILITY - Home Medications Comprehensive Discharge Medication List: Ambulatory Orders Acyclovir 200 mg PO BID 06/26/16 Albuterol 0.083% Nebulizer Meron [Ventolin 0.083% Nebulizer Soln -] 1 neb NEB QID 06/26/16 Baclofen 10 mg PO BID 06/26/16 Benzoyl Peroxide 5% Gel - 1 applic TP DAILY 06/26/16 Bisacodyl [Biscolax] 10 mg RC DAILY 06/26/16 Budesonide/Formeterol Fumarate [SYMBICORT 160/4.5mcg -] 1 inh PO BID 06/26/16 Clobazam [Onfi -] 10 mg PO DAILY 06/26/16 Clonazepam [KlonoPIN] 0.5 mg GT TID 06/26/16 Diazepam [Diastat Acudial] 10 mg RC DAILY 06/26/16 Fluticasone Prop 0.05% Nasal [Flonase -] 1 - 2 spray NS DAILY 06/26/16 Fructooligosaccharides/Polydex [Fiber-Stat 15 gm/30 ml Liquid] 15 gm PO DAILY Hydrocolloid Dressing [Duoderm] 1 each TP HS PRN 06/26/16 Ipratropium/Albuterol Sulfate [Iprat-Albut 0.5-3(2.5) mg/3 ml] 3 ml IH Q6H 06/26 Lactobacillus Acidophilus [Acidophilus] 1 each PO HS 06/26/16 Magnesium Hydroxide [Milk of Magnesia] 20 ml PO DAILY 06/26/16 Multivitamin [Poly-Vitamin] 1 each GT DAILY 06/26/16 Phenobarbital 16.2 mg PO BID 06/26/16 Ranitidine HCl [Zantac 75] 75 mg PO BID 06/26/16 This patient is new to me today: No Emergency Visit: Yes ED Registration Date: 06/26/16 Care time: The patient presented to the Emergency Department on the above date and was hospitalized for further evaluation of their emergent condition. Critical Care patient: No - Discharge Referral Referred to [facility] No
== END 2016-07-08 18:30 | disposition home or self-care (01) | DRG 720 ==
LOC: JER 09:46 → JERBED 10:41 → JICU 13:06 → J8W 07-07 07:13
PROVIDERS: ADMIT Internal Medicine; ATTEND Nurse Practitioner Family
PROC: 5A1955Z Respiratory Ventilation, Greater than 96 Consecutive Hours (ICD-10-PCS; principal; 2016-06-27)
PROC: 0BH17EZ Insertion of Endotracheal Airway into Trachea, Via Natural or Artificial Opening (ICD-10-PCS; 2016-06-27)
DX: A41.9 Sepsis, unspecified organism (principal); J96.21 Acute and chronic respiratory failure with hypoxia; J69.0 Pneumonitis due to inhalation of food and vomit; R00.1 Bradycardia, unspecified; I95.9 Hypotension, unspecified; R68.0 Hypothermia, not associated with low environmental temperature; G40.909 Epilepsy, unspecified, not intractable, without status epilepticus; R53.2 Functional quadriplegia; E87.2 Acidosis; R74.0 Nonspecific elevation of levels of transaminase and lactic acid dehydrogenase [LDH]; F73 Profound intellectual disabilities; R65.20 Severe sepsis without septic shock; D72.829 Elevated white blood cell count, unspecified; N39.0 Urinary tract infection, site not specified; H54.8 Legal blindness, as defined in USA; D64.9 Anemia, unspecified; E83.42 Hypomagnesemia; E87.1 Hypo-osmolality and hyponatremia
CPT/HCPCS: 36415; 36600; 71010-TC; 76705-TC; 80048; 80053; 81003; 81015; 82375; 82803; 83050; 83605; 83735; 84100; 85025; 85027; 85610; 87040; 87070; 87086; 87186; 87205; 87254; 87804; 87899; 93005; 93010; 93306-TC; 93970-TC; 94002; 94640; 94660; 99283-25

== ENCOUNTER 2016-09-13 19:59 | Inpatient (IN) | payer OTHER ==
[2016-09-13 20:27] VITALS: BMI 15.0
--- NOTE | 2016-09-13 20:55 | PDOC ---
History of Present Illness - General History Source: [facility] Records - History of Present Illness Initial Comments: 09/13/16 21:06 The patient is a 21-year-old male accompanied by a manager farm with a significant past medical history of herpes encephalopathy, profound mental retardation, cerebral palsy, epilepsy, chronic hypothermia, asthma, and presents to the emergency department from his chronic care facility with respiratory distress. The history is limited secondary to the patients condition. The majority of the information regarding this patient is obtained through his detention documentation. <Stephanie Jara - Last Filed: 09/13/16 22:04> <Juani Leon - Last Filed: 09/14/16 07:02> - General Chief Complaint: Respiratory Distress Stated Complaint: RESPIRATORY DISTRESS Time Seen by Provider: 09/13/16 20:08 Past History <Stephanie Jara - Last Filed: 09/13/16 22:04> - Past Medical History Asthma: Yes GI Disorders: Yes (; DYSPHAGIA) Seizures: Yes (EPILEPSY) Other medical history: MR, CP, Encephalitis, - Surgical History Abdominal Surgery: Yes (GT PLACEMENT) - Psycho/Social/Smoking Cessation Hx Anxiety: No Suicidal Ideation: No Smoking Status: No Smoking History: Never smoked Have you smoked in the past 12 months: No Number of Cigarettes Smoked Daily: 0 Information on smoking cessation initiated: No Hx Alcohol Use: No Drug/Substance Use Hx: No Substance Use Type: None <Juani Leon - Last Filed: 09/14/16 07:02> - Past Medical History Allergies/Adverse Reactions: Allergies Allergy/AdvReac Type Severity Reaction Status Date / Time No Known Allergies Allergy Verified 09/13/16 20:23 Home Medications: Ambulatory Orders Acyclovir 200 mg PO BID 06/26/16 Albuterol 0.083% Nebulizer Meron [Ventolin 0.083% Nebulizer Soln -] 1 neb NEB QID 06/26/16 Baclofen 10 mg PO BID 06/26/16 Benzoyl Peroxide 5% Gel - 1 applic TP DAILY 06/26/16 Bisacodyl [Biscolax] 10 mg RC DAILY 06/26/16 Budesonide/Formeterol Fumarate [SYMBICORT 160/4.5mcg -] 1 inh PO BID 06/26/16 Clobazam [Onfi -] 10 mg PO DAILY 06/26/16 Clonazepam [KlonoPIN] 0.5 mg GT TID 06/26/16 Diazepam [Diastat Acudial] 10 mg RC DAILY 06/26/16 Fluticasone Prop 0.05% Nasal [Flonase -] 1 - 2 spray NS DAILY 06/26/16 Fructooligosaccharides/Polydex [Fiber-Stat 15 gm/30 ml Liquid] 15 gm PO DAILY Hydrocolloid Dressing [Duoderm] 1 each TP HS PRN 06/26/16 Ipratropium/Albuterol Sulfate [Iprat-Albut 0.5-3(2.5) mg/3 ml] 3 ml IH Q6H 06/26 Lactobacillus Acidophilus [Acidophilus] 1 each PO HS 06/26/16 Magnesium Hydroxide [Milk of Magnesia] 20 ml PO DAILY 06/26/16 Multivitamin [Poly-Vitamin] 1 each GT DAILY 06/26/16 Phenobarbital 16.2 mg PO BID 06/26/16 Ranitidine HCl [Zantac 75] 75 mg PO BID 06/26/16 Review of Systems - Review of Systems Able to Perform ROS?: No <Stephanie Jara - Last Filed: 09/13/16 22:04> *Physical Exam - Vital Signs Last Vital Signs Temp Pulse Resp BP Pulse Ox 94.8 F L 68 18 91/63 99 09/13/16 20:24 09/13/16 20:24 09/13/16 20:24 09/13/16 20:24 09/13/16 20:24 - Physical Exam Comments: 09/13/16 21:06 GENERAL: Well developed, well nourished. Awake and alert. No acute distress. HEENT: Normocephalic, atraumatic. PERRLA, EOMI. No conjunctival pallor. Sclera are non- icteric. Moist mucous membranes. Oropharynx is clear. NECK: Supple. Full ROM. No JVD. Carotid pulses 2+ and symmetric, without bruits. No thyromegaly. No lymphadenopathy. CARDIOVASCULAR: Regular rate and rhythm. No murmurs, rubs, or gallops. Distal pulses are 2+ and symmetric. PULMONARY: (+) Coarse breath sounds bilaterally. No wheezing, rales or rhonchi. ABDOMINAL: (+) PEG tube in place, surrounding PEG tube looks clean. Soft. Non-tender. Non- distended. No rebound or guarding. No organomegaly. Normoactive bowel sounds. MUSCULOSKELETAL No bony deformities or tenderness. No CVA tenderness. EXTREMITIES: No cyanosis. No clubbing. No edema. No calf tenderness. SKIN: Warm and dry. Normal capillary refill. No rashes. No jaundice. NEUROLOGICAL: Alert, awake, appropriate. PSYCHIATRIC: Cooperative. Appropriate mood and affect. <Stephanie Jara - Last Filed: 09/13/16 22:04> - Vital Signs Last Vital Signs Temp Pulse Resp BP Pulse Ox 94.8 F L 68 18 91/63 99 09/13/16 20:24 09/13/16 20:24 09/13/16 20:24 09/13/16 20:24 09/13/16 20:24 <Juani Leon - Last Filed: 09/14/16 07:02> ED Treatment Course - LABORATORY CBC & Chemistry Diagram: 09/13/16 21:04 09/13/16 21:04 - ADDITIONAL ORDERS Additional order review: Laboratory Results 09/13/16 21:00 VBG pH 7.38 POC VBG pCO2 51.8 POC VBG pO2 119.0 H Mixed VBG HCO3 29.7 H <Stephanie Jara - Last Filed: 09/13/16 22:04> - LABORATORY CBC & Chemistry Diagram: 09/13/16 21:04 09/13/16 21:04 <Juani Leon - Last Filed: 09/14/16 07:02> Medical Decision Making - Medical Decision Making 09/13/16 22:07 Patient comes from [facility] with sepsis and SOB and coarse breath sounds. LLL pneumonia on CXR; pt has a PEG button; likely aspiration pneumonia. Rest of exam demonstrates no site of infection. HEENT normal. Extremities are wasted and pt has contractures. Sepsis workup initiated. Pt given a dose of zosyn. 09/14/16 07:01 Hospitalist is aware of the patient. As he had been intubated in the recent past, she is requesting ICU evaluation. ICU GRAPPLE SKIDDER OPERATOR/BEN Ryan evaluated the patient and agrees that he is stable to go to the medical floor for admission. <Juani Leon - Last Filed: 09/14/16 07:02> *DC/Admit/Observation/Transfer - Attestations Scribe Attestion: 09/13/16 21:07 Documentation prepared by Stephanie Jara, acting as medical records secretary for Juani Leon MD. <Stephanie Jara - Last Filed: 09/13/16 22:04> - Discharge Dispostion Admit: Yes <Juani Leon - Last Filed: 09/14/16 07:02> Diagnosis at time of Disposition: Pneumonia, Sepsis - Discharge Dispostion Condition at time of disposition: Guarded
[2016-09-13] MEDS ORDERED: SODIUM CHLORIDE 0.9% 1000 ML INFUS.BAG IV ONE (20:56)
[2016-09-13 21:05] LABS: VENOUS BLOOD GAS HCO3 29.7 meq/L (19-25); VENOUS PH 7.38 (7.32-7.42)
[2016-09-13] MEDS ORDERED: PIPERACILLIN/TAZOB 3.375 GM 3.375 GM in DEXTROSE 5%-WATER - 50 ML IVPB ONE (21:10)
[2016-09-13 21:11] LABS: BASOPHIL 0.1 % (0-2.0); EOSINOPHIL 3.7 % (0-4.5); MCH 32.7 pg (25.7-33.7); MEAN CELL VOLUME 99.2 fl (80-96); MEAN PLT VOLUME 10.9 fl (7.5-11.1); NEUTROPHILS 39.7 % (42.8-82.8); RDW 15.3 % (11.9-15.9); WHITE BLOOD COUNT 6.8 K/mm3 (4.0-10.0)
[2016-09-13] MEDS ORDERED: PIPERACILLIN/TAZOB 3.375 GM 50 ML IVPB ONE (21:13)
[2016-09-13 21:31] LABS: INR 1.15 (0.82-1.09); PROTHROMBIN TIME (PATIENT) 12.7 SEC (9.98-11.88)
[2016-09-13 21:36] LABS: ALBUMIN 3.2 g/dl (3.4-5.0); ANION GAP 10 (8-16); CALCIUM 9.1 mg/dL (8.5-10.1); CO2 29 mmol/L (21-32); COCKROFT - GAULT 151.19; CREATININE 0.4 mg/dL (0.7-1.3); GLUCOSE,RANDOM 77 mg/dL (74-106); SGPT/ALT 56 U/L (12-78)
[2016-09-13 21:39] LABS: ALK PHOS 261 U/L (45-117); BILIRUBIN,TOTAL 0.5 mg/dL (0.2-1.0); TOT PROT 8.4 g/dl (6.4-8.2); TROPONIN I < 0.02 ng/ml (0.00-0.05)
[2016-09-13 21:52] LABS: SGOT/AST 57 U/L (15-37)
[2016-09-13 22:13] LABS: PLATELET COMMENT2 FEW GIANT PLTS; PLATELET COUNT 164 K/MM3 (134-434); PLATELET ESTIMATE ADEQUATE (NORMAL)
--- NOTE | 2016-09-13 22:43 | PN ---
<Nancy Mendez - Last Filed: 09/13/16 22:43> Teaching Attending Note Name of Resident: Alex Klein ATTENDING PHYSICIAN STATEMENT I saw and evaluated the patient. I reviewed the resident's note and discussed the case with the resident. I agree with the resident's findings and plan as documented. SUBJECTIVE: OBJECTIVE: ASSESSMENT AND PLAN: <Haley Park - Last Filed: 09/14/16 04:18> Teaching Attending Note ATTENDING PHYSICIAN STATEMENT I saw and evaluated the patient. I reviewed the resident's note and discussed the case with the resident. I agree with the resident's findings and plan as documented. SUBJECTIVE: 21 yo M from [facility] with a PMHx of herpes encephalitis, profound MRCP, epilepsy, and asthma who presents in respiratory distress. Of note, patient was admitted June of 2015 with sepsis secondary to aspiration pneumonia and at that time was intubated and placed in ICU and was treated for citrobacter infection. Patient is nonverbal. Hx taken from [facility] chart. OBJECTIVE: Last Vital Signs Temp Pulse Resp BP Pulse Ox 95.7 F L 98 H 34 H 98/61 97 09/13/16 21:59 09/13/16 21:59 09/13/16 21:59 09/13/16 21:59 09/13/16 21:59 GENERAL: Young male resting in bed. AO x 0, in no acute distress. Nonverbal at baseline. HEENT: Atraumatic. PERRLA, EOMI. Moist mucosa. No JVD LUNGS: Bilateral crackles at bases. HEART: Regular rate and rhythm, normal S1 and S2, no murmurs, rubs or gallops, peripheral pulses normal and equal bilaterally. ABDOMEN: Peg tube in place. Nontender at site. No erythema or edema noted. Soft , nontender, normoactive bowel sounds. No guarding, no rebound. No masses EXTREMITIES: Contracted. no edema. No clubbing or Cyanosis. NEUROLOGICAL: Not following commands. SKIN: Warm, Dry, normal turgor, no rashes or lesions noted. CBCD WBC 6.8 K/mm3 (4.0-10.0) D 09/13/16 21:04 RBC 3.84 M/mm3 (4.00-5.60) L D 09/13/16 21:04 Hgb 12.6 GM/dL (11.7-16.9) 09/13/16 21:04 Hct 38.1 % (35.4-49) D 09/13/16 21:04 MCV 99.2 fl (80-96) H 09/13/16 21:04 MCHC 33.0 g/dl (32.0-35.9) 09/13/16 21:04 RDW 15.3 % (11.9-15.9) 09/13/16 21:04 Plt Count 164 K/MM3 (134-434) D 09/13/16 21:04 MPV 10.9 fl (7.5-11.1) D 09/13/16 21:04 CMP Sodium 140 mmol/L (136-145) 09/13/16 21:04 Potassium 4.6 mmol/L (3.5-5.1) 09/13/16 21:04 Chloride 101 mmol/L (98-107) 09/13/16 21:04 Carbon Dioxide 29 mmol/L (21-32) 09/13/16 21:04 Anion Gap 10 (8-16) 09/13/16 21:04 BUN 15 mg/dL (7-18) 09/13/16 21:04 Creatinine 0.4 mg/dL (0.7-1.3) L D 09/13/16 21:04 Creat Clearance w eGFR > 60 (>60) 09/13/16 21:04 Calcium 9.1 mg/dL (8.5-10.1) 09/13/16 21:04 Total Bilirubin 0.5 mg/dL (0.2-1.0) 09/13/16 21:04 AST 57 U/L (15-37) H D 09/13/16 21:04 ALT 56 U/L (12-78) D 09/13/16 21:04 Alkaline Phosphatase 261 U/L (45-117) H 09/13/16 21:04 Total Protein 8.4 g/dl (6.4-8.2) H 09/13/16 21:04 Albumin 3.2 g/dl (3.4-5.0) L 09/13/16 21:04 Chest X-Ray With LLL and RML infiltrate ASSESSMENT AND PLAN: 21 yo M from [facility] with a PMHx of herpes encephalitis, profound MRCP, epilepsy and asthma presents with respiratory distress found to have pneumonia. 1.) Acute respiratory distress secondary to hospital acquired pneumonia. Possible aspiration. -Prior sputum culture positive for citrobacter sensitive to Levaquin -Continue Levaquin -Follow sputum culture -Urine legionella pneumococcal -Blood cultures -Continue with nonrebreather -If condition worsens, low threshold for intubation -Hold tube feeds -NPO -Repeat Lactic Acid 2.) Sepsis secondary to pneumonia -Hypotension resolved -Tachypnea resolved -Alonso culture -Repeat lactic acid -Continue antibiotics -Continue IVF 3.) Mild transaminitis -Trend 4.) Bradycardia -Avoid all beta blockers -Monitor -Follow ECG 5.) Lymphocytosis -Unknown etiology -Monitor 6.) Hx of epilepsy -Continue with AEDs DVT ppx -Heparin 5000 Q 8 Admit to [facility] with low threshold for ICU if condition worsens. Documentation is prepared by Haley Park acting as medical malpractice paralegal for Nancy Mendez D.O.
[2016-09-13] MEDS ORDERED: LEVOFLOXACIN 750 MG IVPB 150 ML IVPB ONE (22:48)
--- NOTE | 2016-09-13 22:55 | CONSULT ---
Consult Consult Specialty:: Pulm/CCM Reason for Consultation:: Aspiration PNA - History of Present Illness History of Present Illness: 21yom with PMHx Herpes encephalitis, mental retardation, recent admission and intubation for aspiration PNA who was brought in from [facility] with report of possible aspiration PNA. Pt has PEG. No report of vomiting. Called to assess pt in ER On exam O2 sat 100% on 100% NRB, RR 14-20, HR80. VBG 7.38,51, 119. Pt calm and sleeping. Breathing unlabored. Lung sounds with slight rales. Pt does not appear to be in distress and is able to be admitted to the medicine floor. - Alcohol/Substance Use Hx Alcohol Use: No - Smoking History Smoking history: Never smoked Have you smoked in the past 12 months: No Aproximately how many cigarettes per day: 0 Home Medications - Allergies Allergies/Adverse Reactions: Allergies Allergy/AdvReac Type Severity Reaction Status Date / Time No Known Allergies Allergy Verified 09/13/16 20:23 - Home Medications Home Medications: Ambulatory Orders Acyclovir 200 mg PO BID 06/26/16 Albuterol 0.083% Nebulizer Meron [Ventolin 0.083% Nebulizer Soln -] 1 neb NEB QID 06/26/16 Baclofen 10 mg PO BID 06/26/16 Benzoyl Peroxide 5% Gel - 1 applic TP DAILY 06/26/16 Bisacodyl [Biscolax] 10 mg RC DAILY 06/26/16 Budesonide/Formeterol Fumarate [SYMBICORT 160/4.5mcg -] 1 inh PO BID 06/26/16 Clobazam [Onfi -] 10 mg PO DAILY 06/26/16 Clonazepam [KlonoPIN] 0.5 mg GT TID 06/26/16 Diazepam [Diastat Acudial] 10 mg RC DAILY 06/26/16 Fluticasone Prop 0.05% Nasal [Flonase -] 1 - 2 spray NS DAILY 06/26/16 Fructooligosaccharides/Polydex [Fiber-Stat 15 gm/30 ml Liquid] 15 gm PO DAILY Hydrocolloid Dressing [Duoderm] 1 each TP HS PRN 06/26/16 Ipratropium/Albuterol Sulfate [Iprat-Albut 0.5-3(2.5) mg/3 ml] 3 ml IH Q6H 06/26 Lactobacillus Acidophilus [Acidophilus] 1 each PO HS 06/26/16 Magnesium Hydroxide [Milk of Magnesia] 20 ml PO DAILY 06/26/16 Multivitamin [Poly-Vitamin] 1 each GT DAILY 06/26/16 Phenobarbital 16.2 mg PO BID 06/26/16 Ranitidine HCl [Zantac 75] 75 mg PO BID 06/26/16 Physical Exam Vital Signs: Vital Signs Temperature 95.7 F L 09/13/16 21:59 Pulse Rate 98 H 09/13/16 21:59 Respiratory Rate 34 H 09/13/16 21:59 Blood Pressure 98/61 09/13/16 21:59 O2 Sat by Pulse Oximetry (%) 97 09/13/16 21:59 Labs: CBC, BMP 09/13/16 21:04 09/13/16 21:04
--- NOTE | 2016-09-13 23:12 | HP ---
CHIEF COMPLAINT: Dyspnea PCP: HISTORY OF PRESENT ILLNESS: 21 year old male resident of [facility] Profound mental retardation, Epilepsy, Asthma, Hypothermia, Herpes encephalitis, who was brought in to the ER this morning by EMS because of respiratory distress and hypoxia with oxygen saturation in 70's. Upon arrival to the ED the patient was hypotensive, tachycardia, tachypneic, Hypoxic and hypothermic. After IV fluid, O2 therapy, suctioning, the patient was stabilized with normal vitals. Pt was recently (06/2016) admitted in ICU at [facility] for respiratory failure, sepsis and pneumonia with Citrobacter where he was intubated, extubated and reintubated. Pt is non verbal, history is taken from chart, home health attendant from [place] and ED nursing staff. ER course was notable for: (1) Zosyn IV 3.375gm (2) IV fluid NS 1 liter (3) CXR Recent Travel: None PAST MEDICAL HISTORY: Profound mental retardation Epilepsy Asthma Hypothermia Herpes encephalitis PAST SURGICAL HISTORY: PEg tube Social History: Smoking:none Alcohol:none Drugs: none Family History: non- contributory Allergies No Known Allergies Allergy (Verified 09/13/16 20:23) HOME MEDICATIONS: Home Medications Medication Instructions Recorded Acyclovir 200 mg PO BID 06/26/16 Albuterol 0.083% Nebulizer Meron 1 neb NEB QID 06/26/16 [Ventolin 0.083% Nebulizer Soln -] Baclofen 10 mg PO BID 06/26/16 Benzoyl Peroxide 5% Gel - 1 applic TP DAILY 06/26/16 Bisacodyl [Biscolax] 10 mg RC DAILY 06/26/16 Budesonide/Formeterol Fumarate 1 inh PO BID 06/26/16 [SYMBICORT 160/4.5mcg -] Clobazam [Onfi -] 10 mg PO DAILY 06/26/16 Clonazepam [KlonoPIN] 0.5 mg GT TID 06/26/16 Diazepam [Diastat Acudial] 10 mg RC DAILY 06/26/16 Fluticasone Prop 0.05% Nasal 1 - 2 spray NS DAILY 06/26/16 [Flonase -] Fructooligosaccharides/Polydex 15 gm PO DAILY 06/26/16 [Fiber-Stat 15 gm/30 ml Liquid] Hydrocolloid Dressing [Duoderm] 1 each TP HS PRN 06/26/16 Ipratropium/Albuterol Sulfate 3 ml IH Q6H 06/26/16 [Iprat-Albut 0.5-3(2.5) mg/3 ml] Lactobacillus Acidophilus 1 each PO HS 06/26/16 [Acidophilus] Magnesium Hydroxide [Milk of 20 ml PO DAILY 06/26/16 Magnesia] Multivitamin [Poly-Vitamin] 1 each GT DAILY 06/26/16 Phenobarbital 16.2 mg PO BID 06/26/16 Ranitidine HCl [Zantac 75] 75 mg PO BID 06/26/16 REVIEW OF SYSTEMS Unable to obtain to patient condition, non-verbal, no communicative intent PHYSICAL EXAMINATION Vital Signs - 24 hr 09/13/16 09/13/16 20:24 21:59 Temperature 94.8 F L 95.7 F L Pulse Rate 68 Pulse Rate [ 98 H Right Apical] Respiratory 18 34 H Rate Blood Pressure 91/63 Blood Pressure 98/61 [Left Arm] O2 Sat by Pulse 99 97 Oximetry (%) GENERAL: Awake, alert, non-verbal, no communicative intent, in mild distress. HEAD: Normal with no signs of trauma. EYES: Pupils deviated to tiffany right, equal, round and reactive to light, extraocular movements could not be appreciated at the time of the exam , sclera anicteric, conjunctiva clear. No lid lag. EARS, NOSE, THROAT: Ears normal, nares patent, oropharynx clear without exudates. Moist mucous membranes. NECK: Normal range of motion, supple without lymphadenopathy, JVD, or masses. LUNGS: Breath sounds equal, clear to auscultation bilaterally. No wheezes, and no crackles. No accessory muscle use. HEART: Regular rate and rhythm, normal S1 and S2 without murmur, rub or gallop. ABDOMEN: Soft, nontender, not distended, normoactive bowel sounds, no guarding, no rebound, no masses. No hepatomegaly or splenomegaly. Peg tube present in midabdomen MUSCULOSKELETAL: limited range of motion at all joints, upper extremities contracted. no tenderness. No CVA tenderness. UPPER EXTREMITIES: 2+ pulses, warm, well-perfused. No cyanosis. No clubbing. No peripheral edema. LOWER EXTREMITIES: 2+ pulses, warm, well-perfused. No calf tenderness. No peripheral edema. NEUROLOGICAL: non-verbal, no ambulatory, does not follow direction PSYCHIATRIC: No Cooperative. does not maintain eye contact. SKIN: Warm, dry, normal turgor, no rashes or lesions noted, normal capillary refill. Laboratory Results - last 24 hr 09/13/16 09/13/16 09/13/16 21:00 21:04 21:04 WBC 6.8 D RBC 3.84 L D Hgb 12.6 Hct 38.1 D MCV 99.2 H MCHC 33.0 RDW 15.3 Plt Count 164 D MPV 10.9 D Neutrophils % 39.7 L D Lymphocytes % 50.8 H D Monocytes % 5.7 Eosinophils % 3.7 D Basophils % 0.1 Platelet Estimate Adequate Platelet Comment Few giant plts INR 1.15 H PTT (Actin FS) 49.0 H VBG pH 7.38 POC VBG pCO2 51.8 POC VBG pO2 119.0 H Mixed VBG HCO3 29.7 H Sodium Potassium Chloride Carbon Dioxide Anion Gap BUN Creatinine Creat Clearance w eGFR Random Glucose Lactic Acid Calcium Total Bilirubin AST ALT Alkaline Phosphatase Creatine Kinase Troponin I Total Protein Albumin Blood Type Antibody Screen 09/13/16 09/13/16 09/13/16 21:04 21:04 21:04 WBC RBC Hgb Hct MCV MCHC RDW Plt Count MPV Neutrophils % Lymphocytes % Monocytes % Eosinophils % Basophils % Platelet Estimate Platelet Comment INR PTT (Actin FS) VBG pH POC VBG pCO2 POC VBG pO2 Mixed VBG HCO3 Sodium 140 Potassium 4.6 Chloride 101 Carbon Dioxide 29 Anion Gap 10 BUN 15 Creatinine 0.4 L D Creat Clearance w eGFR > 60 Random Glucose 77 D Lactic Acid 0.740 Calcium 9.1 Total Bilirubin 0.5 AST 57 H D ALT 56 D Alkaline Phosphatase 261 H Creatine Kinase 96 Troponin I < 0.02 Total Protein 8.4 H Albumin 3.2 L Blood Type O POSITIVE Antibody Screen Negative CBC, BMP 09/13/16 21:04 09/13/16 21:04 Laboratory Tests 09/13/16 09/13/16 09/13/16 21:00 21:04 21:04 Neutrophils % 39.7 L D Lymphocytes % 50.8 H D INR 1.15 H VBG pH 7.38 Lactic Acid AST ALT Alkaline Phosphatase Troponin I Urine Nitrite Ur Leukocyte Esterase 09/13/16 09/13/16 09/13/16 21:04 21:04 22:30 Neutrophils % Lymphocytes % INR VBG pH Lactic Acid 0.740 AST 57 H D ALT 56 D Alkaline Phosphatase 261 H Troponin I < 0.02 Urine Nitrite Negative Ur Leukocyte Esterase Negative ASSESSMENT/PLAN: 21 year old male resident of [facility] Profound mental retardation, Epilepsy, Asthma, Hypothermia, Herpes encephalitis, who was brought in to the ER this morning by EMS because of respiratory distress and hypoxia with oxygen saturation in 70's. Acute Hypoxic Respiratory Failure r/o Mucus plug vs aspiration pneumonia, pneumonitis Keep O2 sat above 90% Duoneb in q6h Albuterol inh q4h prn Symbicort inh Flonase nasal Zosyn received in ED levaquin daily nutrition consult Sepsis r/o aspiration PNA Hypothermic, Tachycardic Sepsis protocol initiated Lactic acid 0.74 Levaquin IV fluid NS at 75ml/h Aspiration precaution HOB elevated Blood culture Sputum culture urine culture urine for pneumonia antigen ID consult Dr Jordan Transaminitis ALP 261 Seem to be chronic will monitor Lymphocytosis Lymphocytes 50.8% unknown etiology May rt to a viral infection Will monitor Epilesy Phenobarbital 16.2 mg PO BID Clobazam 10 mg PO DAILY Clonazepam 0.5 mg GT TID Diazepam 10 mg RC DAILY Mental retardation/Cerebral Palsy Baclofen FEN Fluid: NS at 75 ml/h Electrolytes: chemistry in am Nutrition: NPO DVT prophylaxis: heparin sq tid Disposition: Admit to [facility] Visit type - Emergency Visit Emergency Visit: Yes ED Registration Date: 09/13/16 Care time: The patient presented to the Emergency Department on the above date and was hospitalized for further evaluation of their emergent condition. - New Patient This patient is new to me today: Yes Date on this admission: 09/14/16 - Critical Care Critical Care patient: No
[2016-09-13 23:16] LABS: URINE APPEARANCE SLCLOUDY; URINE BILIRUBIN NEGATIVE (NEGATIVE); URINE BLOOD NEGATIVE (NEGATIVE); URINE COLOR YELLOW; URINE GLUCOSE (UA) NEGATIVE (NEGATIVE); URINE KETONE NEGATIVE (NEGATIVE); URINE LEUK ESTERASE NEGATIVE (NEGATIVE); URINE NITRITE NEGATIVE (NEGATIVE); URINE PROTEIN NEGATIVE (NEGATIVE); URINE UROBILINOGEN NEGATIVE E.U./dl (0.2-1.0)
[2016-09-13] MEDS ORDERED: SODIUM CHLORIDE 1,000 ML IV SCH (23:30)
[2016-09-14] MEDS ORDERED: LEVOFLOXACIN 750 MG IVPB 150 ML IVPB ONE (00:10)
[2016-09-14] MEDS ORDERED: ALBUTEROL SO4 0.083% IH SOL 2.5 MG/3 ML VIAL.NEB. NEB PRN (00:14)
[2016-09-14] MEDS: clonazePAM 0.5 MG TABLET GT SCH ×3 (05:15→21:52)
[2016-09-14] MEDS: HEPARIN NA (PORCINE) 5,000 UNITS/ML 1ML VIAL SQ SCH ×3 (05:15→21:52)
[2016-09-14] MEDS: ALBUTEROL SO4 2.5/IPRATROPIUM 0.5 INH SOL 3 ML VIAL.NEB. NEB SCH ×3 (06:30→23:31)
[2016-09-14 08:03] LABS: BASOPHIL 0.2 % (0-2.0); EOSINOPHIL 0.6 % (0-4.5); MCH 33.5 pg (25.7-33.7); MCHC 33.5 g/dl (32.0-35.9); MEAN PLT VOLUME 10.2 fl (7.5-11.1); NEUTROPHILS 88.3 % (42.8-82.8); PLATELET COUNT 131 K/MM3 (134-434); WHITE BLOOD COUNT 14.2 K/mm3 (4.0-10.0)
[2016-09-14 08:31] LABS: ALBUMIN 2.7 g/dl (3.4-5.0); SGOT/AST 71 U/L (15-37)
[2016-09-14 08:44] LABS: ALK PHOS 232 U/L (45-117); ANION GAP 10 (8-16); BILIRUBIN,TOTAL 0.2 mg/dL (0.2-1.0); CALCIUM 8.8 mg/dL (8.5-10.1); CO2 26 mmol/L (21-32); CREATININE 0.4 mg/dL (0.7-1.3); GLUCOSE,RANDOM 76 mg/dL (74-106); MAGNESIUM 1.8 mg/dL (1.8-2.4); PHOSPHOROUS 3.9 mg/dL (2.5-4.9); SGPT/ALT 64 U/L (12-78); TOT PROT 6.9 g/dl (6.4-8.2); TROPONIN I < 0.02 ng/ml (0.00-0.05)
--- NOTE | 2016-09-14 09:03 | PN ---
Progress Note (short form) - Note Progress Note: ID Full note dictated Selected Entries 09/13/16 09/13/16 20:24 21:59 Temperature 94.8 F L Pulse Rate 68 Respiratory 18 34 H Rate Blood Pressure 91/63 O2 Sat by Pulse 99 Oximetry (%) Weight 80 lb Microbiology 07/06/16 18:30 Blood - Peripheral Venous Blood Culture - Final NO GROWTH AFTER 5 DAYS INCUBATION 07/06/16 16:50 Blood - Peripheral Venous Blood Culture - Final NO GROWTH AFTER 5 DAYS INCUBATION 07/05/16 11:25 Urine - Urine Lane Urine Culture - Final NO GROWTH OBTAINED 06/28/16 10:00 Sputum - Endotrachea Suction/Ventilator Gram Stain - Final 06/28/16 10:00 Sputum - Endotrachea Suction/Ventilator Sputum Culture - Final Diphtheroid/Corynebacterium Citrobacter Koseri Laboratory Tests 09/13/16 09/14/16 09/14/16 22:30 05:35 07:00 WBC 14.2 H D Hgb 12.9 Hct 38.5 Plt Count 131 L D BUN 13 Alkaline Phosphatase 232 H Ur Leukocyte Esterase Negative Assessment Pneumonia Sepsis aspiration Resistant organisms Plan Tigecycline and Levofloxacin Nikki SCHWARZ Problem List - Problems (1) Pneumonia Code(s): J18.9 - PNEUMONIA, UNSPECIFIED ORGANISM (2) Sepsis Code(s): A41.9 - SEPSIS, UNSPECIFIED ORGANISM (3) Multiple drug resistant organism (MDRO) culture positive Code(s): Z16.24 - RESISTANCE TO MULTIPLE ANTIBIOTICS
[2016-09-14] MEDS ORDERED: TIGECYCLINE 50 MG in DEXTROSE 5%-WATER - 100 ML IVPB SCH (10:00)
[2016-09-14] MEDS ORDERED: BISACODYL 10 MG SUPP.RECT RC SCH (10:00)
[2016-09-14] MEDS ORDERED: PT OWN MED DRAWER 7, Y5N ONE (10:09)
[2016-09-14] MEDS: BACLOFEN 10 MG TABLET (FP) GT SCH ×2 (10:10→21:52)
[2016-09-14] MEDS: PHENobarbital 20 MG/5 ML UNIT-DOSE CUP GT SCH ×2 (10:11→21:52)
[2016-09-14] MEDS: MAGNESIUM HYDROX 2400MG/30ML ORAL SUSPENSION 30 ML CUP PO SCH (10:12)
[2016-09-14] MEDS: cloBAZam 10 MG TABLET PO SCH (10:12)
[2016-09-14] MEDS: RANITIDINE HCL 150 MG/10 ML UNIT-DOSE CUP GT SCH ×2 (10:13→22:01)
[2016-09-14] MEDS: ACYCLOVIR 200 MG CAPSULE GT SCH ×2 (10:13→22:00)
[2016-09-14] MEDS: FLUTICASONE PROP 0.05% 16 GM NASAL SPRAY NS SCH (10:54)
[2016-09-14] MEDS: BUDESONIDE/FORMETEROL FUMARATE 160/4.5 mcg INHALER IH SCH ×2 (10:55→22:03)
[2016-09-14] MEDS ORDERED: TIGECYCLINE 100 MG in DEXTROSE 5%-WATER - 100 ML IVPB ONE (11:00)
[2016-09-14] MEDS ORDERED: INSULIN (NOVOLOG) ASPART 100 UNITS/ML 10ML VIAL ONE (11:24)
[2016-09-14] MEDS: LEVOFLOXACIN 500 MG IVPB 100 ML IVPB SCH (12:06)
[2016-09-14] MEDS: MULTIVIT MINERALS GT SCH (12:07)
[2016-09-14] MEDS: FERROUS GLUC GT SCH (12:07)
--- NOTE | 2016-09-14 13:34 | PN ---
Physical Exam: SUBJECTIVE: Patient seen and examined at bedside. OBJECTIVE: Vital Signs Period Temp Pulse Resp BP Sys/Linares Pulse Ox Last 24 Hr 94.3 F-95.5 F 67-78 20-28 90-111/55-77 99-100 GENERAL/NEURO: The patient is sleeping but arousable. Responds to physical stimuli. Nonverbal at baseline. No signs of distress. LUNGS: Rhonchorous breath sounds throughout HEART: Regular rate and rhythm, S1, S2 without murmur, rub or gallop. ABDOMEN: Soft, nontender, nondistended, normoactive bowel sounds, no guarding, no rebound; PEG in place, surrounding skin intact EXTREMITIES: 2+ pulses, warm, well-perfused, no edema. All four extremities contracted. Laboratory Results - last 24 hr 09/14/16 09/14/16 05:35 07:00 WBC 14.2 H D RBC 3.86 L Hgb 12.9 Hct 38.5 MCV 100.0 H MCHC 33.5 RDW 15.0 Plt Count 131 L D MPV 10.2 Neutrophils % 88.3 H D Lymphocytes % 5.9 L D Monocytes % 5.0 Eosinophils % 0.6 D Basophils % 0.2 Sodium 143 Potassium 4.2 Chloride 107 Carbon Dioxide 26 Anion Gap 10 BUN 13 Creatinine 0.4 L Creat Clearance w eGFR > 60 Random Glucose 76 Calcium 8.8 Phosphorus 3.9 Magnesium 1.8 Total Bilirubin 0.2 D AST 71 H D ALT 64 Alkaline Phosphatase 232 H Creatine Kinase 46 Troponin I < 0.02 Total Protein 6.9 Albumin 2.7 L Active Medications Generic Name Dose Route Start Last Admin Trade Name Freq PRN Reason Stop Dose Admin Acyclovir 200 mg 09/14/16 10:00 09/14/16 10:13 Zovirax - GT 200 mg BID JORGE Administration Albuterol Sulfate 1 amp 09/14/16 00:14 Ventolin 0.083% Nebulizer Soln - NEB Q4H PRN SHORT OF BREATH/WHEEZING Albuterol/Ipratropium 1 amp 09/14/16 06:00 09/14/16 06:30 Duoneb - NEB 1 amp QIDR JORGE Administration Baclofen 10 mg 09/14/16 10:00 09/14/16 10:10 Lioresal - GT 10 mg BID JORGE Administration Bisacodyl 10 mg 09/14/16 00:14 Dulcolax Suppository - RC DAILY PRN CONSTIPATION Budesonide/Formoterol Fumarate 1 puff 09/14/16 10:00 09/14/16 10:55 Symbicort 160/4.5mcg - IH 1 puff BID JORGE Administration Clobazam 10 mg 09/14/16 10:00 09/14/16 10:12 Onfi - PO 10 mg DAILY JORGE Administration Clonazepam 0.5 mg 09/14/16 06:00 09/14/16 05:15 Klonopin - GT 0.5 mg TID JORGE Administration Fluticasone Propionate 1 - 2 spray 09/14/16 10:00 09/14/16 10:54 Flonase - NS 2 sprays DAILY JORGE Administration Heparin Sodium (Porcine) 5,000 unit 09/14/16 06:00 09/14/16 05:15 Heparin - SQ 5,000 unit TID JORGE Administration Sodium Chloride 1,000 mls @ 50 mls/hr 09/13/16 23:30 09/14/16 00:15 Normal Saline - IV 09/14/16 23:24 50 mls/hr ASDIR JORGE Administration Levofloxacin 100 mls @ 100 mls/hr 09/14/16 13:00 09/14/16 12:06 Levaquin 500 Mg Premixed Ivpb - IVPB 100 mls/hr DAILY JORGE Administration Tigecycline 50 mg/ Dextrose 100 mls @ 100 mls/hr 09/14/16 22:00 IVPB BID JORGE Protocol Lactobacillus Acidophilus 1 tab 09/14/16 22:00 Bacid - GT HS JORGE Magnesium Hydroxide 20 ml 09/14/16 10:00 09/14/16 10:12 Milk Of Magnesia - PO 20 ml DAILY JORGE Administration Phenobarbital 15 mg 09/14/16 10:00 09/14/16 10:11 Phenobarbital Liquid - GT 15 mg BID JORGE Administration Ranitidine HCl 75 mg 09/14/16 10:00 09/14/16 10:13 Zantac Oral Solution - GT 75 mg BID JORGE Administration ASSESSMENT/PLAN 21 year-old [place] resident with a PMH of profound mental retardation, herpes encephalopathy, seizure disorder, and asthma, was brought to the ED in respiratory distress. Admitted for pneumonia. Health-care associated pneumonia --temp 94.8 but BASELINE IS 94->96 --WBC spike today 6.8-->14.2k; hemodynamically stable; satting well on NC --09/13 CXR: new congestive changes, possible infiltrate --hospitalized 06/26-->07/08 with multi-drug resistant Citrobacter pneumonia --cultures pending --continue empiric levofloxacin (day #2) and tigacycline (day #1) Herpes encephalopathy --continue acyclovir Seizure disorder --continue phenobarbital, clobazam, clonazepam Asthma --continue symbicort, albuterol nebs Functional Quadriplegia --contracted all extremities, dependent for all ADLs F/E/N Fluids/Nutrition: Promote @ 54mL/hr with free water @ 14mL/hr Electrolyes: replete as indicated DVT prophylaxis: subq heparin Dispo: continues to require inpatient care. Full Code. Visit type - Emergency Visit Emergency Visit: Yes ED Registration Date: 09/13/16 Care time: The patient presented to the Emergency Department on the above date and was hospitalized for further evaluation of their emergent condition. - New Patient This patient is new to me today: Yes Date on this admission: 09/14/16 - Critical Care Critical Care patient: No
--- NOTE | 2016-09-14 14:35 | CONS ---
DATE OF CONSULTATION: DATE OF DICTATION: 09/14/2016 The patient is a 21-year-old, severely developmentally delayed male due to herpetic encephalitis, I am asked to see for sepsis syndrome. He is a resident of the [facility] and has been previously treated for aspiration pneumonia at [facility]. He was brought now with a history of asthma and epilepsy and found to be hypothermic with respiratory distress and hypoxemia with oxygen saturations in the 70s. Upon arrival, he was hypotensive, tachycardic, and tachypneic, as well as hypothermic. He had previously been admitted to [facility] intensive care unit in June, when he required intubation. At that time he had a Citrobacter cultured from the sputum and this was quite resistant. He was given a dose of Zosyn here and I am asked to see him for further evaluation and treatment. Past medical history as noted above. MEDICATIONS: Acyclovir 200 b.i.d., baclofen, Klonopin, multivitamins, phenobarbital, Zantac. ALLERGIES: None known. SOCIAL HISTORY: Obviously no travel. Resident of a long-term care facility. Nonsmoker. FAMILY HISTORY: Currently unobtainable. REVIEW OF SYSTEMS: Respiratory: Hypoxemia, tachypnea. Cardiac: No history of cardiac murmur, congenital heart disease. Gastrointestinal: No abdominal pain, vomiting, blood per rectum, diarrhea. Genitourinary: Incontinent of urine. No gross hematuria. PHYSICAL EXAMINATION: Vital Signs: Temperature was 94.8, pulse 68, respirations 18 to 30, O2 oximetry 99%. General: The patient was uncooperative, unable to follow commands. Lungs: With bilateral breath sounds. No crackles or wheezes. Heart: S1, S2. Regular rhythm without audible murmur or gallop. Abdomen: Soft, nondistended. Normoactive bowel sounds. No guarding or rebound. Extremities: Contracted. No peripheral edema or cyanosis. The white count is 14.2, hemoglobin 12.9, platelets 131, INR 1.15. BUN 13, creatinine 0.4, alkaline phosphatase 261 on admission. Urinalysis negative for leukocyte esterase. Chest x-ray was reviewed, shows bilateral pulmonary congestion, cannot rule out bilateral infiltrates; poor inspiration. Previous ultrasound of the liver dated June 26, 2016, was normal. ASSESSMENT: Sepsis syndrome, although lactic acid 0.7. Bilateral pulmonary infiltrates, probable aspiration, which he is at high risk for. History of resistant Citrobacter June 28, only sensitive to fluoroquinolones and tigecycline as well as amikacin and gentamicin. PLAN: Will cover him for aspiration pneumonia with tigecycline and add levofloxacin for additional gram-negative coverage. Cultures of blood and urine have been sent. KAYLA REDDY M.D. CLEO/[id number]
[2016-09-14] MEDS: TIGECYCLINE 50 MG in DEXTROSE 5%-WATER - 100 ML IVPB SCH (21:45)
[2016-09-14] MEDS: LACTOBACILLUS ACIDOPHILUS 1 EACH TAB (FP) GT SCH (21:52)
[2016-09-15] MEDS: clonazePAM 0.5 MG TABLET GT SCH ×3 (06:03→22:08)
[2016-09-15] MEDS: HEPARIN NA (PORCINE) 5,000 UNITS/ML 1ML VIAL SQ SCH ×3 (06:03→22:08)
[2016-09-15 08:17] LABS: BASOPHIL 0.2 % (0-2.0); EOSINOPHIL 1.7 % (0-4.5); MCHC 33.4 g/dl (32.0-35.9); MEAN CELL VOLUME 98.8 fl (80-96); MEAN PLT VOLUME 9.5 fl (7.5-11.1); NEUTROPHILS 58.6 % (42.8-82.8); PLATELET COUNT 149 K/MM3 (134-434); RDW 14.9 % (11.9-15.9); WHITE BLOOD COUNT 11.6 K/mm3 (4.0-10.0)
[2016-09-15 08:42] LABS: ALBUMIN 2.8 g/dl (3.4-5.0); ANION GAP 7 (8-16); BILIRUBIN,TOTAL 0.2 mg/dL (0.2-1.0); CALCIUM 8.7 mg/dL (8.5-10.1); CO2 26 mmol/L (21-32); COCKROFT - GAULT 155.28; CREATININE 0.5 mg/dL (0.7-1.3); GLUCOSE,RANDOM 74 mg/dL (74-106); MAGNESIUM 1.6 mg/dL (1.8-2.4); PHOSPHOROUS 3.9 mg/dL (2.5-4.9); SGOT/AST 46 U/L (15-37); SGPT/ALT 55 U/L (12-78); TOT PROT 7.3 g/dl (6.4-8.2)
[2016-09-15 08:43] LABS: ALK PHOS 261 U/L (45-117)
--- NOTE | 2016-09-15 09:04 | EKG ---
Test Reason : Blood Pressure : / mmHG Vent. Rate : 070 BPM Atrial Rate : 070 BPM P-R Int : 170 ms QRS Dur : 118 ms QT Int : 416 ms P-R-T Axes : 048 089 036 degrees QTc Int : 449 ms NORMAL SINUS RHYTHM INFERIOR-POSTERIOR INFARCT (CITED ON OR BEFORE 26-JUN-2016) ABNORMAL ECG WHEN COMPARED WITH ECG OF 26-JUN-2016 13:27, VENT. RATE HAS INCREASED BY 27 BPM QT HAS LENGTHENED Confirmed by IVY RILEY MD ([id number]) on 09/15/2016 9:04:23 AM Referred By: Confirmed By:IVY RILEY MD
[2016-09-15] MEDS: ALBUTEROL SO4 2.5/IPRATROPIUM 0.5 INH SOL 3 ML VIAL.NEB. NEB SCH ×2 (10:40→16:45)
[2016-09-15] MEDS: cloBAZam 10 MG TABLET PO SCH (10:58)
[2016-09-15] MEDS: BACLOFEN 10 MG TABLET (FP) GT SCH ×2 (10:58→22:08)
[2016-09-15] MEDS: PHENobarbital 20 MG/5 ML UNIT-DOSE CUP GT SCH ×2 (10:58→22:09)
[2016-09-15] MEDS: LEVOFLOXACIN 500 MG IVPB 100 ML IVPB SCH (10:59)
[2016-09-15] MEDS: MAGNESIUM HYDROX 2400MG/30ML ORAL SUSPENSION 30 ML CUP PO SCH (10:59)
[2016-09-15] MEDS: FLUTICASONE PROP 0.05% 16 GM NASAL SPRAY NS SCH (11:00)
[2016-09-15] MEDS: FERROUS GLUC GT SCH (11:01)
[2016-09-15] MEDS: BUDESONIDE/FORMETEROL FUMARATE 160/4.5 mcg INHALER IH SCH ×2 (11:01→22:08)
[2016-09-15] MEDS: MULTIVIT MINERALS GT SCH (11:01)
[2016-09-15] MEDS: RANITIDINE HCL 150 MG/10 ML UNIT-DOSE CUP GT SCH ×2 (11:02→22:09)
[2016-09-15] MEDS: TIGECYCLINE 50 MG in DEXTROSE 5%-WATER - 100 ML IVPB SCH ×2 (11:02→22:07)
[2016-09-15] MEDS: ACYCLOVIR 200 MG CAPSULE GT SCH ×2 (11:03→22:09)
--- NOTE | 2016-09-15 15:17 | PN ---
Progress Note, Physician History of Present Illness: Not verbally responsive Breathing non-labored Afebrile WBC improved - Current Medication List Current Medications: Active Medications Acyclovir (Zovirax -) 200 mg GT BID [facility] Last Admin: 09/15/16 11:03 Dose: 200 mg Albuterol Sulfate (Ventolin 0.083% Nebulizer Soln -) 1 amp NEB Q4H PRN PRN Reason: SHORT OF BREATH/WHEEZING Albuterol/Ipratropium (Duoneb -) 1 amp NEB QIDR [facility] Last Admin: 09/15/16 10:40 Dose: 1 amp Baclofen (Lioresal -) 10 mg GT BID [facility] Last Admin: 09/15/16 10:58 Dose: 10 mg Bisacodyl (Dulcolax Suppository -) 10 mg RC DAILY PRN PRN Reason: CONSTIPATION Budesonide/Formoterol Fumarate (Symbicort 160/4.5mcg -) 1 puff IH BID [facility] Last Admin: 09/15/16 11:01 Dose: 1 puff Clobazam (Onfi -) 10 mg PO DAILY [facility] Last Admin: 09/15/16 10:58 Dose: 10 mg Clonazepam (Klonopin -) 0.5 mg GT TID [facility] Last Admin: 09/15/16 13:57 Dose: 0.5 mg Fluticasone Propionate (Flonase -) 1 - 2 spray NS DAILY [facility] Last Admin: 09/15/16 11:00 Dose: 2 sprays Heparin Sodium (Porcine) (Heparin -) 5,000 unit SQ TID [facility] Last Admin: 09/15/16 13:57 Dose: 5,000 unit Levofloxacin (Levaquin 500 Mg Premixed Ivpb -) 100 mls @ 100 mls/hr IVPB DAILY [facility] Last Admin: 09/15/16 10:59 Dose: 100 mls/hr Tigecycline 50 mg/ Dextrose 100 mls @ 100 mls/hr IVPB BID JORGE PRN Reason: Protocol Last Admin: 09/15/16 11:02 Dose: 100 mls/hr Lactobacillus Acidophilus (Bacid -) 1 tab GT HS [facility] Last Admin: 09/14/16 21:52 Dose: 1 tab Magnesium Hydroxide (Milk Of Magnesia -) 20 ml PO DAILY [facility] Last Admin: 09/15/16 10:59 Dose: 20 ml Phenobarbital (Phenobarbital Liquid -) 15 mg GT BID [facility] Last Admin: 09/15/16 10:58 Dose: 15 mg Ranitidine HCl (Zantac Oral Solution -) 75 mg GT BID [facility] Last Admin: 09/15/16 11:02 Dose: 75 mg - Objective Vital Signs: Vital Signs Temperature 97.5 F L 09/15/16 10:00 Pulse Rate 74 09/15/16 10:40 Respiratory Rate 20 09/15/16 10:00 Blood Pressure 104/62 09/15/16 10:00 O2 Sat by Pulse Oximetry (%) 95 09/15/16 10:40 Constitutional: Yes: No Distress Eyes: Yes: Conjunctiva Clear Cardiovascular: Yes: Regular Rate and Rhythm, S1, S2 Respiratory: Yes: Rhonchi Gastrointestinal: Yes: Normal Bowel Sounds, Soft. No: Tenderness Edema: No Labs: CBC, BMP 09/15/16 06:38 09/15/16 06:38 INR, PTT INR 1.15 (0.82-1.09) H 09/13/16 21:04 Assessment/Plan Pneumonia Hx resistant citrobacter in sputum Sepsis continue Tygacil/ levaquin
--- NOTE | 2016-09-15 18:39 | PN ---
Physical Exam: SUBJECTIVE: Patient seen and examined at bedside. OBJECTIVE: Vital Signs Period Temp Pulse Resp BP Sys/Linares Pulse Ox Last 24 Hr 97.1 F-97.8 F 67-80 20-24 94-105/55-62 95-96 GENERAL/NEURO: The patient is sleeping but arousable. Responds to physical stimuli. Nonverbal at baseline. No signs of distress. LUNGS: Rhonchorous breath sounds throughout HEART: Regular rate and rhythm, S1, S2 without murmur, rub or gallop. ABDOMEN: Soft, nontender, nondistended, normoactive bowel sounds, no guarding, no rebound; PEG in place, surrounding skin intact EXTREMITIES: 2+ pulses, warm, well-perfused, no edema. All four extremities contracted. Laboratory Results - last 24 hr 09/15/16 09/15/16 06:38 06:38 WBC 11.6 H RBC 3.71 L Hgb 12.3 Hct 36.6 MCV 98.8 H MCHC 33.4 RDW 14.9 Plt Count 149 MPV 9.5 Neutrophils % 58.6 D Lymphocytes % 35.5 D Monocytes % 4.0 Eosinophils % 1.7 D Basophils % 0.2 Sodium 142 Potassium 3.9 Chloride 109 H Carbon Dioxide 26 Anion Gap 7 L BUN 16 D Creatinine 0.5 L D Creat Clearance w eGFR > 60 Random Glucose 74 Calcium 8.7 Phosphorus 3.9 Magnesium 1.6 L Total Bilirubin 0.2 AST 46 H D ALT 55 Alkaline Phosphatase 261 H Total Protein 7.3 Albumin 2.8 L Active Medications Generic Name Dose Route Start Last Admin Trade Name Freq PRN Reason Stop Dose Admin Acyclovir 200 mg 09/14/16 10:00 09/15/16 11:03 Zovirax - GT 200 mg BID JORGE Administration Albuterol Sulfate 1 amp 09/14/16 00:14 Ventolin 0.083% Nebulizer Soln - NEB Q4H PRN SHORT OF BREATH/WHEEZING Albuterol/Ipratropium 1 amp 09/14/16 06:00 09/15/16 16:45 Duoneb - NEB 1 amp QIDR JORGE Administration Baclofen 10 mg 09/14/16 10:00 09/15/16 10:58 Lioresal - GT 10 mg BID JORGE Administration Bisacodyl 10 mg 09/14/16 00:14 Dulcolax Suppository - RC DAILY PRN CONSTIPATION Budesonide/Formoterol Fumarate 1 puff 09/14/16 10:00 09/15/16 11:01 Symbicort 160/4.5mcg - IH 1 puff BID JORGE Administration Clobazam 10 mg 09/14/16 10:00 09/15/16 10:58 Onfi - PO 10 mg DAILY JORGE Administration Clonazepam 0.5 mg 09/14/16 06:00 09/15/16 13:57 Klonopin - GT 0.5 mg TID JORGE Administration Fluticasone Propionate 1 - 2 spray 09/14/16 10:00 09/15/16 11:00 Flonase - NS 2 sprays DAILY JORGE Administration Heparin Sodium (Porcine) 5,000 unit 09/14/16 06:00 09/15/16 13:57 Heparin - SQ 5,000 unit TID JORGE Administration Levofloxacin 100 mls @ 100 mls/hr 09/14/16 13:00 09/15/16 10:59 Levaquin 500 Mg Premixed Ivpb - IVPB 100 mls/hr DAILY JORGE Administration Tigecycline 50 mg/ Dextrose 100 mls @ 100 mls/hr 09/14/16 22:00 09/15/16 11:02 IVPB 100 mls/hr BID JORGE Administration Protocol Lactobacillus Acidophilus 1 tab 09/14/16 22:00 09/14/16 21:52 Bacid - GT 1 tab HS JORGE Administration Magnesium Hydroxide 20 ml 09/14/16 10:00 09/15/16 10:59 Milk Of Magnesia - PO 20 ml DAILY JORGE Administration Phenobarbital 15 mg 09/14/16 10:00 09/15/16 10:58 Phenobarbital Liquid - GT 15 mg BID JORGE Administration Ranitidine HCl 75 mg 09/14/16 10:00 09/15/16 11:02 Zantac Oral Solution - GT 75 mg BID JORGE Administration ASSESSMENT/PLAN 21 year-old [place] resident with a PMH of profound mental retardation, herpes encephalopathy, seizure disorder, and asthma, was brought to the ED in respiratory distress. Admitted for pneumonia. Health-care associated pneumonia --temp 97.8; baseline 94->96 --WBC spike to 14.2k yesterday trending down -->11.6k --09/13 CXR: new congestive changes, possible infiltrate --hospitalized 06/26-->07/08 with multi-drug resistant Citrobacter pneumonia --cultures pending --continue empiric levofloxacin (day #3) and tigacycline (day #2) Herpes encephalopathy --continue acyclovir Seizure disorder --continue phenobarbital, clobazam, clonazepam Asthma --continue symbicort, albuterol nebs Functional Quadriplegia --contracted all extremities, dependent for all ADLs F/E/N Fluids/Nutrition: Promote @ 60mL/hr with 65mL/hr free water flushes for 12 hours; 12 hours off; free water bolus of 60mL before and after each 12 hour feeding session (regimen from [place]) Electrolyes: replete as indicated DVT prophylaxis: subq heparin Dispo: continues to require inpatient care. Full Code. Visit type - Emergency Visit Emergency Visit: Yes ED Registration Date: 09/13/16 Care time: The patient presented to the Emergency Department on the above date and was hospitalized for further evaluation of their emergent condition. - New Patient This patient is new to me today: No - Critical Care Critical Care patient: No
[2016-09-15] MEDS ORDERED: PT OWN MED DRAWER 7, Y5N ONE (22:05)
[2016-09-15] MEDS: LACTOBACILLUS ACIDOPHILUS 1 EACH TAB (FP) GT SCH (22:08)
[2016-09-16] MEDS: ALBUTEROL SO4 2.5/IPRATROPIUM 0.5 INH SOL 3 ML VIAL.NEB. NEB SCH ×4 (00:05→18:00)
[2016-09-16] MEDS: HEPARIN NA (PORCINE) 5,000 UNITS/ML 1ML VIAL SQ SCH ×3 (06:39→21:17)
[2016-09-16] MEDS: clonazePAM 0.5 MG TABLET GT SCH ×3 (06:39→21:16)
[2016-09-16] MEDS ORDERED: PT OWN MED DRAWER 7, Y5N ONE ×4 (07:09→21:13)
[2016-09-16 10:21] LABS: BASOPHIL 0.4 % (0-2.0); EOSINOPHIL 1.6 % (0-4.5); MCH 33.4 pg (25.7-33.7); MCHC 33.9 g/dl (32.0-35.9); MEAN CELL VOLUME 98.5 fl (80-96); MEAN PLT VOLUME 9.7 fl (7.5-11.1); NEUTROPHILS 44.6 % (42.8-82.8); PLATELET COUNT 169 K/MM3 (134-434)
[2016-09-16] MEDS: FERROUS GLUC GT SCH (10:50)
[2016-09-16] MEDS: MULTIVIT MINERALS GT SCH (10:50)
[2016-09-16 10:51] LABS: ALBUMIN 3.2 g/dl (3.4-5.0); ALK PHOS 285 U/L (45-117); ANION GAP 11 (8-16); BILIRUBIN,TOTAL 0.2 mg/dL (0.2-1.0); CALCIUM 9.2 mg/dL (8.5-10.1); CO2 27 mmol/L (21-32); CREATININE 0.6 mg/dL (0.7-1.3); GLUCOSE,RANDOM 78 mg/dL (74-106); MAGNESIUM 1.9 mg/dL (1.8-2.4); SGOT/AST 36 U/L (15-37); SGPT/ALT 50 U/L (12-78); TOT PROT 8.3 g/dl (6.4-8.2)
[2016-09-16] MEDS: BACLOFEN 10 MG TABLET (FP) GT SCH ×2 (10:51→21:16)
[2016-09-16] MEDS: LEVOFLOXACIN 500 MG IVPB 100 ML IVPB SCH (10:51)
[2016-09-16] MEDS: MAGNESIUM HYDROX 2400MG/30ML ORAL SUSPENSION 30 ML CUP PO SCH (10:51)
[2016-09-16] MEDS: FLUTICASONE PROP 0.05% 16 GM NASAL SPRAY NS SCH (10:51)
[2016-09-16] MEDS: cloBAZam 10 MG TABLET PO SCH (10:52)
[2016-09-16] MEDS: PHENobarbital 20 MG/5 ML UNIT-DOSE CUP GT SCH ×2 (10:52→21:16)
[2016-09-16] MEDS: BUDESONIDE/FORMETEROL FUMARATE 160/4.5 mcg INHALER IH SCH (10:53)
[2016-09-16] MEDS: TIGECYCLINE 50 MG in DEXTROSE 5%-WATER - 100 ML IVPB SCH ×2 (10:53→21:20)
[2016-09-16] MEDS: RANITIDINE HCL 150 MG/10 ML UNIT-DOSE CUP GT SCH ×2 (10:53→21:17)
[2016-09-16] MEDS: ACYCLOVIR 200 MG CAPSULE GT SCH ×2 (10:54→21:16)
--- NOTE | 2016-09-16 15:13 | PN ---
Progress Note (short form) - Note Progress Note: doing well NAD Vital Signs Period Temp Pulse Resp BP Sys/Linares Pulse Ox Last 24 Hr 97.0 F-98.0 F 62-80 17-22 94-102/55-70 95 cor-rrr llungs decreased bs at bases abd soft,nt ext no edema CBC, BMP 09/16/16 09:50 09/16/16 09:50 Microbiology 09/13/16 21:04 Blood - Peripheral Venous Blood Culture - Preliminary NO GROWTH OBTAINED AFTER 48 HOURS, INCUBATION TO CONTINUE FOR 3 DAYS. 09/13/16 21:04 Blood - Peripheral Venous Blood Culture - Preliminary NO GROWTH OBTAINED AFTER 48 HOURS, INCUBATION TO CONTINUE FOR 3 DAYS. 09/13/16 22:30 Urine - Urine - Catheterized Urine Culture - Final NO GROWTH OBTAINED a/p pneumonia history of resistant organisms multiple developmental delays clinically improved repeat cxray day #3 levaquin/tygacil
--- NOTE | 2016-09-16 18:29 | PN ---
Physical Exam: SUBJECTIVE: Patient seen and examined at bedside. OBJECTIVE: Vital Signs Period Temp Pulse Resp BP Sys/Linares Pulse Ox Last 24 Hr 97.0 F-98.0 F 62-80 17-22 94-102/56-70 95-96 GENERAL/NEURO: The patient is sleeping but arousable. Responds to physical stimuli. Nonverbal at baseline. No signs of distress. LUNGS: Rhonchorous breath sounds throughout HEART: Regular rate and rhythm, S1, S2 without murmur, rub or gallop. ABDOMEN: Soft, nontender, nondistended, normoactive bowel sounds, no guarding, no rebound; PEG in place, surrounding skin intact EXTREMITIES: 2+ pulses, warm, well-perfused, no edema. All four extremities contracted. Laboratory Results - last 24 hr 09/16/16 09/16/16 09:50 09:50 WBC 11.0 H RBC 4.07 Hgb 13.6 D Hct 40.1 MCV 98.5 H MCHC 33.9 RDW 15.0 Plt Count 169 MPV 9.7 Neutrophils % 44.6 D Lymphocytes % 46.8 H D Monocytes % 6.6 Eosinophils % 1.6 Basophils % 0.4 Sodium 139 Potassium 4.3 Chloride 101 Carbon Dioxide 27 Anion Gap 11 BUN 19 H Creatinine 0.6 L Creat Clearance w eGFR > 60 Random Glucose 78 Calcium 9.2 Magnesium 1.9 Total Bilirubin 0.2 AST 36 D ALT 50 Alkaline Phosphatase 285 H Total Protein 8.3 H Albumin 3.2 L Active Medications Generic Name Dose Route Start Last Admin Trade Name Freq PRN Reason Stop Dose Admin Acyclovir 200 mg 09/14/16 10:00 09/16/16 10:54 Zovirax - GT 200 mg BID JORGE Administration Albuterol Sulfate 1 amp 09/14/16 00:14 Ventolin 0.083% Nebulizer Soln - NEB Q4H PRN SHORT OF BREATH/WHEEZING Albuterol/Ipratropium 1 amp 09/14/16 06:00 09/16/16 11:50 Duoneb - NEB 1 amp QIDR JORGE Administration Baclofen 10 mg 09/14/16 10:00 09/16/16 10:51 Lioresal - GT 10 mg BID JORGE Administration Bisacodyl 10 mg 09/14/16 00:14 Dulcolax Suppository - RC DAILY PRN CONSTIPATION Clobazam 10 mg 05/07/17 10:00 09/16/16 10:52 Onfi - PO 10 mg DAILY JORGE Administration Clonazepam 0.5 mg 09/14/16 06:00 09/16/16 14:51 Klonopin - GT 0.5 mg TID JORGE Administration Fluticasone Propionate 1 - 2 spray 09/14/16 10:00 09/16/16 10:51 Flonase - NS 2 sprays DAILY JORGE Administration Heparin Sodium (Porcine) 5,000 unit 09/14/16 06:00 09/16/16 14:52 Heparin - SQ 5,000 unit TID JORGE Administration Levofloxacin 100 mls @ 100 mls/hr 09/14/16 13:00 09/16/16 10:51 Levaquin 500 Mg Premixed Ivpb - IVPB 100 mls/hr DAILY JORGE Administration Tigecycline 50 mg/ Dextrose 100 mls @ 100 mls/hr 09/14/16 22:00 09/16/16 10:53 IVPB 100 mls/hr BID JORGE Administration Protocol Lactobacillus Acidophilus 1 tab 09/14/16 22:00 09/15/16 22:08 Bacid - GT 1 tab HS JORGE Administration Magnesium Hydroxide 20 ml 09/14/16 10:00 09/16/16 10:51 Milk Of Magnesia - PO 20 ml DAILY JORGE Administration Phenobarbital 15 mg 09/14/16 10:00 09/16/16 10:52 Phenobarbital Liquid - GT 15 mg BID JORGE Administration Ranitidine HCl 75 mg 09/14/16 10:00 09/16/16 10:53 Zantac Oral Solution - GT 75 mg BID JORGE Administration ASSESSMENT/PLAN 21 year-old [place] resident with a PMH of profound mental retardation, herpes encephalopathy, seizure disorder, and asthma, was brought to the ED in respiratory distress. Admitted for pneumonia. Health-care associated pneumonia h/o MDR citrobacter pneumonia --afebrile, WBC trending down --09/16 CXR: increased bilateral insterstitial markings, venous congestion v infiltrates; will get CT chest; lower free water flushes --cultures NGTD --continue empiric levofloxacin (day #3) and tigacycline (day #2) Herpes encephalopathy --continue acyclovir Seizure disorder --continue phenobarbital, clobazam, clonazepam Asthma --continue symbicort, albuterol nebs Functional Quadriplegia --contracted all extremities, dependent for all ADLs F/E/N Fluids/Nutrition: Promote @ 60mL/hr x 12 hours; lower hourly flushes to 10mL ; no pre-post feeding flushes Electrolyes: replete as indicated DVT prophylaxis: subq heparin Dispo: continues to require inpatient care. Full Code. Visit type - Emergency Visit Emergency Visit: Yes ED Registration Date: 09/13/16 Care time: The patient presented to the Emergency Department on the above date and was hospitalized for further evaluation of their emergent condition. - New Patient This patient is new to me today: No - Critical Care Critical Care patient: No
[2016-09-16] MEDS: LACTOBACILLUS ACIDOPHILUS 1 EACH TAB (FP) GT SCH (21:16)
[2016-09-17] MEDS: ALBUTEROL SO4 2.5/IPRATROPIUM 0.5 INH SOL 3 ML VIAL.NEB. NEB SCH ×3 (00:15→18:25)
[2016-09-17] MEDS: clonazePAM 0.5 MG TABLET GT SCH ×3 (06:21→22:10)
[2016-09-17] MEDS: HEPARIN NA (PORCINE) 5,000 UNITS/ML 1ML VIAL SQ SCH ×3 (06:21→22:10)
[2016-09-17 08:08] LABS: BASOPHIL 0.2 % (0-2.0); EOSINOPHIL 1.2 % (0-4.5); MCH 32.9 pg (25.7-33.7); MCHC 33.4 g/dl (32.0-35.9); MEAN CELL VOLUME 98.5 fl (80-96); NEUTROPHILS 63.2 % (42.8-82.8); PLATELET COUNT 171 K/MM3 (134-434); RDW 14.7 % (11.9-15.9); WHITE BLOOD COUNT 18.3 K/mm3 (4.0-10.0)
[2016-09-17 09:17] LABS: ALBUMIN 3.2 g/dl (3.4-5.0); ANION GAP 9 (8-16); BILIRUBIN,TOTAL 0.4 mg/dL (0.2-1.0); CALCIUM 9.1 mg/dL (8.5-10.1); CO2 28 mmol/L (21-32); COCKROFT - GAULT 155.28; CREATININE 0.5 mg/dL (0.7-1.3); GLUCOSE,RANDOM 79 mg/dL (74-106); MAGNESIUM 1.8 mg/dL (1.8-2.4); SGOT/AST 39 U/L (15-37); SGPT/ALT 48 U/L (12-78); TOT PROT 8.3 g/dl (6.4-8.2)
[2016-09-17 09:19] LABS: ALK PHOS 281 U/L (45-117)
[2016-09-17] MEDS ORDERED: PT OWN MED DRAWER 7, Y5N ONE (12:19)
[2016-09-17] MEDS: BACLOFEN 10 MG TABLET (FP) GT SCH ×2 (12:22→22:10)
[2016-09-17] MEDS: cloBAZam 10 MG TABLET PO SCH (12:22)
[2016-09-17] MEDS: LEVOFLOXACIN 500 MG IVPB 100 ML IVPB SCH (12:23)
[2016-09-17] MEDS: FLUTICASONE PROP 0.05% 16 GM NASAL SPRAY NS SCH (12:23)
[2016-09-17] MEDS: FERROUS GLUC GT SCH (12:23)
[2016-09-17] MEDS: MULTIVIT MINERALS GT SCH (12:23)
[2016-09-17] MEDS: MAGNESIUM HYDROX 2400MG/30ML ORAL SUSPENSION 30 ML CUP PO SCH (12:24)
[2016-09-17] MEDS: PHENobarbital 20 MG/5 ML UNIT-DOSE CUP GT SCH ×2 (12:24→22:11)
[2016-09-17] MEDS: ACYCLOVIR 200 MG CAPSULE GT SCH ×2 (12:25→22:10)
[2016-09-17] MEDS: RANITIDINE HCL 150 MG/10 ML UNIT-DOSE CUP GT SCH ×2 (12:25→22:11)
[2016-09-17] MEDS: TIGECYCLINE 50 MG in DEXTROSE 5%-WATER - 100 ML IVPB SCH ×2 (12:26→22:38)
--- NOTE | 2016-09-17 14:57 | PN ---
Physical Exam: SUBJECTIVE: Patient seen and examined at bedside. OBJECTIVE: Vital Signs Period Temp Pulse Resp BP Sys/Linares Pulse Ox Last 24 Hr 97.1 F-97.7 F 46-55 17-18 90-94/50-55 94-96 GENERAL/NEURO: The patient is sleeping but arousable. Responds to physical stimuli. Nonverbal at baseline. No signs of distress. LUNGS: Coarse rales and rhonchi throughout HEART: Regular rate and rhythm, S1, S2 without murmur, rub or gallop. ABDOMEN: Soft, nontender, nondistended, normoactive bowel sounds, no guarding, no rebound; PEG in place, surrounding skin intact EXTREMITIES: 2+ pulses, warm, well-perfused, no edema. All four extremities contracted. Laboratory Results - last 24 hr 09/17/16 09/17/16 07:03 07:03 WBC 18.3 H D RBC 4.02 Hgb 13.2 Hct 39.6 MCV 98.5 H MCHC 33.4 RDW 14.7 Plt Count 171 MPV 10.0 Neutrophils % 63.2 D Lymphocytes % 29.3 D Monocytes % 6.1 Eosinophils % 1.2 Basophils % 0.2 Sodium 139 Potassium 4.1 Chloride 102 Carbon Dioxide 28 Anion Gap 9 BUN 22 H Creatinine 0.5 L Creat Clearance w eGFR > 60 Random Glucose 79 Calcium 9.1 Magnesium 1.8 Total Bilirubin 0.4 D AST 39 H ALT 48 Alkaline Phosphatase 281 H Total Protein 8.3 H Albumin 3.2 L Active Medications Generic Name Dose Route Start Last Admin Trade Name Freq PRN Reason Stop Dose Admin Acyclovir 200 mg 09/14/16 10:00 09/17/16 12:25 Zovirax - GT 200 mg BID JORGE Administration Albuterol Sulfate 1 amp 09/14/16 00:14 Ventolin 0.083% Nebulizer Soln - NEB Q4H PRN SHORT OF BREATH/WHEEZING Albuterol/Ipratropium 1 amp 09/14/16 06:00 09/17/16 07:39 Duoneb - NEB 1 amp QIDR JORGE Administration Baclofen 10 mg 09/14/16 10:00 09/17/16 12:22 Lioresal - GT 10 mg BID JORGE Administration Bisacodyl 10 mg 09/14/16 00:14 Dulcolax Suppository - RC DAILY PRN CONSTIPATION Clobazam 10 mg 09/14/16 10:00 09/17/16 12:22 Onfi - PO 10 mg DAILY JORGE Administration Clonazepam 0.5 mg 09/14/16 06:00 09/17/16 14:25 Klonopin - GT 0.5 mg TID JORGE Administration Fluticasone Propionate 1 - 2 spray 09/14/16 10:00 09/17/16 12:23 Flonase - NS 2 sprays DAILY JORGE Administration Heparin Sodium (Porcine) 5,000 unit 09/14/16 06:00 09/17/16 14:24 Heparin - SQ 5,000 unit TID JORGE Administration Levofloxacin 100 mls @ 100 mls/hr 09/14/16 13:00 09/17/16 12:23 Levaquin 500 Mg Premixed Ivpb - IVPB 100 mls/hr DAILY JORGE Administration Tigecycline 50 mg/ Dextrose 100 mls @ 100 mls/hr 09/14/16 22:00 09/17/16 12:26 IVPB 100 mls/hr BID JORGE Administration Protocol Lactobacillus Acidophilus 1 tab 09/14/16 22:00 09/16/16 21:16 Bacid - GT 1 tab HS JORGE Administration Magnesium Hydroxide 20 ml 09/14/16 10:00 09/17/16 12:24 Milk Of Magnesia - PO 20 ml DAILY JORGE Administration Phenobarbital 15 mg 09/14/16 10:00 09/17/16 12:24 Phenobarbital Liquid - GT 15 mg BID JORGE Administration Ranitidine HCl 75 mg 09/14/16 10:00 09/17/16 12:25 Zantac Oral Solution - GT 75 mg BID JORGE Administration ASSESSMENT/PLAN 21 year-old [place] resident with a PMH of profound mental retardation, herpes encephalopathy, seizure disorder, and asthma, was brought to the ED in respiratory distress. Admitted for pneumonia. Health-care associated pneumonia h/o MDR citrobacter pneumonia --afebrile, WBC spike to 18.5k --510 CT chest: patchy groundglass opacification, pulmonary vascular congestion v. diffuse pneumonia --sputum culture pending --continue empiric levofloxacin (day #3) and tigacycline (day #2) --ID following Pulmonary venous congestion --decreased free water flushes --Lasix IV 20mg x 1 Herpes encephalopathy --continue acyclovir Seizure disorder --continue phenobarbital, clobazam, clonazepam Asthma --continue symbicort, albuterol nebs Functional Quadriplegia --contracted all extremities, dependent for all ADLs F/E/N Fluids/Nutrition: Promote @ 75mL/hr x 12 hours; lower hourly flushes to 10mL ; no pre-post feeding flushes Electrolyes: replete as indicated DVT prophylaxis: subq heparin Dispo: continues to require inpatient care. Full Code. Visit type - Emergency Visit Emergency Visit: Yes ED Registration Date: 09/13/16 Care time: The patient presented to the Emergency Department on the above date and was hospitalized for further evaluation of their emergent condition. - New Patient This patient is new to me today: No - Critical Care Critical Care patient: No
[2016-09-17] MEDS: FUROSEMIDE 40 MG/4 ML INJECTABLE VIAL IVPUSH SCH (16:39)
--- NOTE | 2016-09-17 16:51 | PN ---
Progress Note (short form) - Note Progress Note: no oxygen- no respiratory distress no diarrhea NAD Vital Signs Period Temp Pulse Resp BP Sys/Linares Pulse Ox Last 24 Hr 97.1 F-97.7 F 46-55 17-18 90-94/50-55 94-96 cor-rrr llungs clear abd soft,nt ext no edema CBC, BMP 09/17/16 07:03 09/17/16 07:[address] noted a/p pneumonia- ?CHF leukocytosis is puzzling- he looks well and quite comfortable! repeat cbc in am history of resistant organisms multiple developmental delays clinically improved day #4 levaquin/tygacil
[2016-09-17] MEDS: LACTOBACILLUS ACIDOPHILUS 1 EACH TAB (FP) GT SCH (22:10)
[2016-09-18] MEDS: ALBUTEROL SO4 2.5/IPRATROPIUM 0.5 INH SOL 3 ML VIAL.NEB. NEB SCH ×4 (00:05→17:15)
[2016-09-18] MEDS: clonazePAM 0.5 MG TABLET GT SCH ×3 (05:54→21:11)
[2016-09-18] MEDS: HEPARIN NA (PORCINE) 5,000 UNITS/ML 1ML VIAL SQ SCH ×3 (05:54→21:13)
[2016-09-18 07:53] LABS: BASOPHIL 0.3 % (0-2.0); EOSINOPHIL 1.9 % (0-4.5); MCH 33.2 pg (25.7-33.7); MCHC 33.7 g/dl (32.0-35.9); MEAN CELL VOLUME 98.5 fl (80-96); MEAN PLT VOLUME 9.7 fl (7.5-11.1); PLATELET COUNT 211 K/MM3 (134-434); RDW 15.4 % (11.9-15.9); WHITE BLOOD COUNT 9.9 K/mm3 (4.0-10.0)
[2016-09-18 08:33] LABS: ALBUMIN 3.5 g/dl (3.4-5.0); ANION GAP 9 (8-16); CALCIUM 9.6 mg/dL (8.5-10.1); CO2 31 mmol/L (21-32); GLUCOSE,RANDOM 106 mg/dL (74-106); MAGNESIUM 2.2 mg/dL (1.8-2.4)
[2016-09-18 08:35] LABS: ALK PHOS 310 U/L (45-117); BILIRUBIN,TOTAL 0.4 mg/dL (0.2-1.0); COCKROFT - GAULT 110.91; CREATININE 0.7 mg/dL (0.7-1.3); SGOT/AST 50 U/L (15-37); SGPT/ALT 54 U/L (12-78); TOT PROT 9.2 g/dl (6.4-8.2)
[2016-09-18] MEDS ORDERED: PT OWN MED DRAWER 7, Y5N ONE (09:43)
[2016-09-18] MEDS: ACYCLOVIR 200 MG CAPSULE GT SCH ×2 (09:46→21:11)
[2016-09-18] MEDS: BACLOFEN 10 MG TABLET (FP) GT SCH ×2 (09:46→21:11)
[2016-09-18] MEDS: cloBAZam 10 MG TABLET PO SCH (09:47)
[2016-09-18] MEDS: FLUTICASONE PROP 0.05% 16 GM NASAL SPRAY NS SCH (09:56)
[2016-09-18] MEDS: LEVOFLOXACIN 500 MG IVPB 100 ML IVPB SCH (09:56)
[2016-09-18] MEDS: MAGNESIUM HYDROX 2400MG/30ML ORAL SUSPENSION 30 ML CUP PO SCH (09:57)
[2016-09-18] MEDS: PHENobarbital 20 MG/5 ML UNIT-DOSE CUP GT SCH ×2 (09:57→21:10)
[2016-09-18] MEDS: MULTIVIT MINERALS GT SCH (09:57)
[2016-09-18] MEDS: FUROSEMIDE 40 MG/4 ML INJECTABLE VIAL IVPUSH SCH (09:57)
[2016-09-18] MEDS: FERROUS GLUC GT SCH (09:57)
[2016-09-18] MEDS: TIGECYCLINE 50 MG in DEXTROSE 5%-WATER - 100 ML IVPB SCH ×2 (09:58→21:12)
[2016-09-18] MEDS: RANITIDINE HCL 150 MG/10 ML UNIT-DOSE CUP GT SCH ×2 (09:58→21:12)
--- NOTE | 2016-09-18 13:56 | PN ---
Progress Note (short form) - Note Progress Note: Subjective: The patient was seen and examined at the bedside, he remains non- verbal. Opens eyes to tactile stimuli Current Medications Generic Name Dose Route Start Last Admin Trade Name Freq PRN Reason Stop Dose Admin Acyclovir 200 mg 09/14/16 10:00 09/18/16 09:46 Zovirax - GT 200 mg BID JORGE Administration Albuterol Sulfate 1 amp 09/14/16 00:14 Ventolin 0.083% Nebulizer Soln - NEB Q4H PRN SHORT OF BREATH/WHEEZING Albuterol/Ipratropium 1 amp 09/14/16 06:00 09/18/16 11:19 Duoneb - NEB 1 amp QIDR JORGE Administration Baclofen 10 mg 09/14/16 10:00 09/18/16 09:46 Lioresal - GT 10 mg BID JORGE Administration Bisacodyl 10 mg 09/14/16 00:14 Dulcolax Suppository - RC DAILY PRN CONSTIPATION Clobazam 10 mg 09/14/16 10:00 09/18/16 09:47 Onfi - PO 10 mg DAILY JORGE Administration Clonazepam 0.5 mg 09/14/16 06:00 09/18/16 05:54 Klonopin - GT 0.5 mg TID JORGE Administration Fluticasone Propionate 1 - 2 spray 09/14/16 10:00 09/18/16 09:56 Flonase - NS 2 sprays DAILY JORGE Administration Furosemide 20 mg 09/17/16 15:15 09/18/16 09:57 Lasix Injection - IVPUSH 20 mg DAILY JORGE Administration Heparin Sodium (Porcine) 5,000 unit 09/14/16 06:00 09/18/16 05:54 Heparin - SQ 5,000 unit TID JORGE Administration Levofloxacin 100 mls @ 100 mls/hr 09/14/16 13:00 09/18/16 09:56 Levaquin 500 Mg Premixed Ivpb - IVPB 100 mls/hr DAILY JORGE Administration Tigecycline 50 mg/ Dextrose 100 mls @ 100 mls/hr 09/14/16 22:00 09/18/16 09:58 IVPB 100 mls/hr BID JORGE Administration Protocol Lactobacillus Acidophilus 1 tab 09/14/16 22:00 09/17/16 22:10 Bacid - GT 1 tab HS JORGE Administration Magnesium Hydroxide 20 ml 09/14/16 10:00 09/18/16 09:57 Milk Of Magnesia - PO 20 ml DAILY JORGE Administration Phenobarbital 15 mg 09/14/16 10:00 09/18/16 09:57 Phenobarbital Liquid - GT 15 mg BID JORGE Administration Ranitidine HCl 75 mg 09/14/16 10:00 09/18/16 09:58 Zantac Oral Solution - GT 75 mg BID JORGE Administration Objective: Vital Signs Period Temp Pulse Resp BP Sys/Linares Pulse Ox Last 24 Hr 96.4 F-98.2 F 60-87 18-20 96-130/70-79 90-99 Physical Exam GENERAL: NAD, nonverbal LUNGS: CTA bilaterally frequent course cough. HEART: RRR, S1S2 ABDOMEN: Soft, nontender, nondistended, normoactive bowel sounds, PEG tube in place. EXTREMITIES: Contracted. 2+ pulses, warm, well-perfused, no edema. NEUROLOGICAL: Nonverbal, unable to follow commands at baseline. SKIN: Warm, dry, normal turgor, cap refill < 3 seconds. CBCD WBC 9.9 K/mm3 (4.0-10.0) D 09/18/16 06:30 RBC 4.44 M/mm3 (4.00-5.60) 09/18/16 06:30 Hgb 14.7 GM/dL (11.7-16.9) D 09/18/16 06:30 Hct 43.8 % (35.4-49) 09/18/16 06:30 MCV 98.5 fl (80-96) H 09/18/16 06:30 MCHC 33.7 g/dl (32.0-35.9) 09/18/16 06:30 RDW 15.4 % (11.9-15.9) 09/18/16 06:30 Plt Count 211 K/MM3 (134-434) D 09/18/16 06:30 MPV 9.7 fl (7.5-11.1) 09/18/16 06:30 CMP Sodium 138 mmol/L (136-145) 09/18/16 06:30 Potassium 4.1 mmol/L (3.5-5.1) 09/18/16 06:30 Chloride 98 mmol/L (98-107) 09/18/16 06:30 Carbon Dioxide 31 mmol/L (21-32) 09/18/16 06:30 Anion Gap 9 (8-16) 09/18/16 06:30 BUN 31 mg/dL (7-18) H D 09/18/16 06:30 Creatinine 0.7 mg/dL (0.7-1.3) D 09/18/16 06:30 Creat Clearance w eGFR > 60 (>60) 09/18/16 06:30 Random Glucose 106 mg/dL (74-106) D 09/18/16 06:30 Calcium 9.6 mg/dL (8.5-10.1) 09/18/16 06:30 Total Bilirubin 0.4 mg/dL (0.2-1.0) 09/18/16 06:30 AST 50 U/L (15-37) H D 09/18/16 06:30 ALT 54 U/L (12-78) 09/18/16 06:30 Alkaline Phosphatase 310 U/L (45-117) H 09/18/16 06:30 Total Protein 9.2 g/dl (6.4-8.2) H 09/18/16 06:30 Albumin 3.5 g/dl (3.4-5.0) 09/18/16 06:30 CARDIAC ENZYMES Creatine Kinase 46 IU/L (39-308) 09/14/16 05:35 Troponin I < 0.02 ng/ml (0.00-0.05) 09/14/16 05:35 Microbiology 09/16/16 17:10 Sputum - Aerosol Induced Gram Stain - Final 09/16/16 17:10 Sputum - Aerosol Induced Sputum Culture - Preliminary Non Lactose Fermenting Gnb 09/13/16 21:04 Blood - Peripheral Venous Blood Culture - Preliminary NO GROWTH OBTAINED AFTER 96 HOURS, INCUBATION TO CONTINUE FOR 1 DAYS. 09/13/16 21:04 Blood - Peripheral Venous Blood Culture - Preliminary NO GROWTH OBTAINED AFTER 96 HOURS, INCUBATION TO CONTINUE FOR 1 DAYS. 09/13/16 22:30 Urine - Urine - Catheterized Urine Culture - Final NO GROWTH OBTAINED Assessment: This is a 21 year old male with PMHx of profound mental retardation , herpes encephalopathy, seizure disorder, asthma who presented to the ED with acute respiratory distress and was found to have pneumonia. Plan: 1) Respiratory: Acute hypoxic respiratory failure 2/2 pneumonia - Chest CT with patchy groundglass opacification bilaterally possibly related to pulmonary vascular congestion, although diffuse pneumonia cannot be excluded - Leukocytosis resolved - Afebrile - Continue Levaquin (09/13- ) - Continue Tigacycline (09/14- ) - Hx of multi drug resistant citrobacter pneumonia - F/u sputum culture: prelim non-lactose fermenting GNB - Appreciate ID consult Pulmonary vascular congestion - As evidence on CT chest - Continue with Lasix 20mg daily - Monitor I&O - Lungs CTA bilaterally anteriorly today 2) Neurology: Herpes encephalopathy - Continue acyclovir Seizure disorder - Continue clonazepam, clobazam, phenobarbital 3) F/E/N: - Promote @ 75mL/hr x 12 hours; lower hourly flushes to 10mL; no pre-post feeding flushes - Monitor electrolytes 4) Prophylaxis: - Heparin 5,000u sq tid - Functional quadriplegia 5) Dispo: - Requires continued inpatient care CODE STATUS: FULL CODE Visit type - Emergency Visit Emergency Visit: Yes ED Registration Date: 09/13/16 Care time: The patient presented to the Emergency Department on the above date and was hospitalized for further evaluation of their emergent condition. - New Patient This patient is new to me today: Yes Date on this admission: 09/18/16 - Critical Care Critical Care patient: No
--- NOTE | 2016-09-18 16:33 | PN ---
Progress Note (short form) - Note Progress Note: no oxygen- no respiratory distress no diarrhea NAD Vital Signs Period Temp Pulse Resp BP Sys/Linares Pulse Ox Last 24 Hr 96.4 F-98.2 F 60-87 17-20 96-130/70-79 90-99 cor-rrr llungs clear abd soft,nt ext no edema CBC, BMP 09/18/16 06:30 09/18/16 06:30 Microbiology 09/16/16 17:10 Sputum - Aerosol Induced Gram Stain - Final 09/16/16 17:10 Sputum - Aerosol Induced Sputum Culture - Preliminary Non Lactose Fermenting Gnb 09/13/16 21:04 Blood - Peripheral Venous Blood Culture - Preliminary NO GROWTH OBTAINED AFTER 96 HOURS, INCUBATION TO CONTINUE FOR 1 DAYS. 09/13/16 21:04 Blood - Peripheral Venous Blood Culture - Preliminary NO GROWTH OBTAINED AFTER 96 HOURS, INCUBATION TO CONTINUE FOR 1 DAYS. 09/13/16 22:30 Urine - Urine - Catheterized Urine Culture - Final NO GROWTH OBTAINED chest ct noted a/p pneumonia- ?CHF leukocytosis resolved history of resistant organisms multiple developmental delays clinically improved day #5 levaquin/tygacil suspect we could discharge him back to [facility] in am on po levaquin
[2016-09-18] MEDS: LACTOBACILLUS ACIDOPHILUS 1 EACH TAB (FP) GT SCH (21:11)
[2016-09-18] MEDS: BISACODYL 10 MG SUPP.RECT RC PRN (22:00)
[2016-09-19] MEDS: ALBUTEROL SO4 2.5/IPRATROPIUM 0.5 INH SOL 3 ML VIAL.NEB. NEB SCH ×4 (00:01→17:06)
[2016-09-19] MEDS: clonazePAM 0.5 MG TABLET GT SCH ×3 (06:06→21:51)
[2016-09-19] MEDS: HEPARIN NA (PORCINE) 5,000 UNITS/ML 1ML VIAL SQ SCH ×3 (06:06→21:52)
[2016-09-19] MEDS ORDERED: PT OWN MED DRAWER 7, Y5N ONE ×3 (09:49→22:01)
[2016-09-19] MEDS: FERROUS GLUC GT SCH (09:51)
[2016-09-19] MEDS: RANITIDINE HCL 150 MG/10 ML UNIT-DOSE CUP GT SCH ×2 (09:51→21:52)
[2016-09-19] MEDS: MULTIVIT MINERALS GT SCH (09:51)
[2016-09-19] MEDS: FUROSEMIDE 40 MG/4 ML INJECTABLE VIAL IVPUSH SCH (09:51)
[2016-09-19] MEDS: cloBAZam 10 MG TABLET PO SCH (09:52)
[2016-09-19] MEDS: MAGNESIUM HYDROX 2400MG/30ML ORAL SUSPENSION 30 ML CUP PO SCH (09:52)
[2016-09-19] MEDS: BACLOFEN 10 MG TABLET (FP) GT SCH ×2 (09:52→21:51)
[2016-09-19] MEDS: PHENobarbital 20 MG/5 ML UNIT-DOSE CUP GT SCH ×2 (09:52→21:52)
[2016-09-19] MEDS: ACYCLOVIR 200 MG CAPSULE GT SCH ×2 (09:52→22:01)
[2016-09-19] MEDS: TIGECYCLINE 50 MG in DEXTROSE 5%-WATER - 100 ML IVPB SCH (09:53)
[2016-09-19] MEDS: FLUTICASONE PROP 0.05% 16 GM NASAL SPRAY NS SCH (09:53)
--- NOTE | 2016-09-19 10:20 | PN ---
Progress Note (short form) - Note Progress Note: no oxygen- no respiratory distress no diarrhea nurse reports persistent coughing NAD Vital Signs Period Temp Pulse Resp BP Sys/Linares Pulse Ox Last 24 Hr 97.4 F-100.1 F 71-94 17-22 114-127/69-74 90-100 cor-rrr lungs decreased bs at bases abd soft,nt ext no edema CBC, BMP 09/18/16 06:30 09/18/16 06:30 Microbiology 09/16/16 17:10 Sputum - Aerosol Induced Gram Stain - Final 09/16/16 17:10 Sputum - Aerosol Induced Sputum Culture - Final Pseudomonas Aeruginosa 09/13/16 21:04 Blood - Peripheral Venous Blood Culture - Final NO GROWTH AFTER 5 DAYS INCUBATION 09/13/16 21:04 Blood - Peripheral Venous Blood Culture - Final NO GROWTH AFTER 5 DAYS INCUBATION 09/13/16 22:30 Urine - Urine - Catheterized Urine Culture - Final NO GROWTH OBTAINED chest ct noted a/p pneumonia- ?CHF leukocytosis resolved history of resistant organisms multiple developmental delays clinically improved low grade temp apparently baseline temp is 95! switch to zosyn hoopoefully discharge Thursday if stable
[2016-09-19] MEDS: LEVOFLOXACIN 500 MG IVPB 100 ML IVPB SCH (10:40)
[2016-09-19] MEDS: PIPERACILLIN/TAZOB 3.375 GM/50 ML PRE-DOCKED IVPB SCH ×2 (11:20→17:17)
--- NOTE | 2016-09-19 11:29 | PN ---
Progress Note (short form) - Note Progress Note: Subjective: The patient was seen and examined at the bedside, he remains non- verbal. Opens eyes to tactile stimuli Baseline temp 95-96, temp 100.1 today Sputum culture with pseudomonas, abx switched to Zosyn Current Medications Generic Name Dose Route Start Last Admin Trade Name Freq PRN Reason Stop Dose Admin Acyclovir 200 mg 09/14/16 10:00 09/19/16 09:52 Zovirax - GT 200 mg BID JORGE Administration Albuterol/Ipratropium 1 amp 09/14/16 06:00 09/19/16 11:08 Duoneb - NEB 1 amp QIDR JORGE Administration Baclofen 10 mg 09/14/16 10:00 09/19/16 09:52 Lioresal - GT 10 mg BID JORGE Administration Bisacodyl 10 mg 09/14/16 00:14 09/18/16 22:00 Dulcolax Suppository - RC 10 mg DAILY PRN Administration CONSTIPATION Clobazam 10 mg 09/14/16 10:00 09/19/16 09:52 Onfi - PO 10 mg DAILY JORGE Administration Clonazepam 0.5 mg 09/14/16 06:00 09/19/16 06:06 Klonopin - GT 0.5 mg TID JORGE Administration Fluticasone Propionate 1 - 2 spray 09/14/16 10:00 09/19/16 09:53 Flonase - NS 2 sprays DAILY JORGE Administration Furosemide 20 mg 09/17/16 15:15 09/19/16 09:51 Lasix Injection - IVPUSH 20 mg DAILY JORGE Administration Heparin Sodium (Porcine) 5,000 unit 09/14/16 06:00 09/19/16 06:06 Heparin - SQ 5,000 unit TID JORGE Administration Lactobacillus Acidophilus 1 tab 09/14/16 22:00 09/18/16 21:11 Bacid - GT 1 tab HS JORGE Administration Magnesium Hydroxide 20 ml 09/14/16 10:00 09/19/16 09:52 Milk Of Magnesia - PO 20 ml DAILY JORGE Administration Phenobarbital 15 mg 09/14/16 10:00 09/19/16 09:52 Phenobarbital Liquid - GT 15 mg BID JORGE Administration Piperacillin Sod/Tazobactam Sod 3.375 gm 09/19/16 11:00 09/19/16 11:20 Zosyn 3.375gm Ivpb (Pre-Docked) IVPB 3.375 gm Q8H-IV JORGE Administration Protocol Ranitidine HCl 75 mg 09/14/16 10:00 09/19/16 09:51 Zantac Oral Solution - GT 75 mg BID JORGE Administration Objective: Vital Signs Period Temp Pulse Resp BP Sys/Linares Pulse Ox Last 24 Hr 97.4 F-100.1 F 71-94 17-22 114-127/69-74 98-100 Physical Exam GENERAL: NAD, nonverbal LUNGS: CTA bilaterally frequent course cough. HEART: RRR, S1S2 ABDOMEN: Soft, nontender, nondistended, normoactive bowel sounds, PEG tube in place. EXTREMITIES: Contracted. 2+ pulses, warm, well-perfused, no edema. NEUROLOGICAL: Nonverbal, unable to follow commands at baseline. SKIN: Warm, dry, normal turgor, cap refill < 3 seconds. CBCD WBC 9.9 K/mm3 (4.0-10.0) D 09/18/16 06:30 RBC 4.44 M/mm3 (4.00-5.60) 09/18/16 06:30 Hgb 14.7 GM/dL (11.7-16.9) D 09/18/16 06:30 Hct 43.8 % (35.4-49) 09/18/16 06:30 MCV 98.5 fl (80-96) H 09/18/16 06:30 MCHC 33.7 g/dl (32.0-35.9) 09/18/16 06:30 RDW 15.4 % (11.9-15.9) 09/18/16 06:30 Plt Count 211 K/MM3 (134-434) D 09/18/16 06:30 MPV 9.7 fl (7.5-11.1) 09/18/16 06:30 CMP Sodium 138 mmol/L (136-145) 09/18/16 06:30 Potassium 4.1 mmol/L (3.5-5.1) 09/18/16 06:30 Chloride 98 mmol/L (98-107) 09/18/16 06:30 Carbon Dioxide 31 mmol/L (21-32) 09/18/16 06:30 Anion Gap 9 (8-16) 09/18/16 06:30 BUN 31 mg/dL (7-18) H D 09/18/16 06:30 Creatinine 0.7 mg/dL (0.7-1.3) D 09/18/16 06:30 Creat Clearance w eGFR > 60 (>60) 09/18/16 06:30 Random Glucose 106 mg/dL (74-106) D 09/18/16 06:30 Calcium 9.6 mg/dL (8.5-10.1) 09/18/16 06:30 Total Bilirubin 0.4 mg/dL (0.2-1.0) 09/18/16 06:30 AST 50 U/L (15-37) H D 09/18/16 06:30 ALT 54 U/L (12-78) 09/18/16 06:30 Alkaline Phosphatase 310 U/L (45-117) H 09/18/16 06:30 Total Protein 9.2 g/dl (6.4-8.2) H 09/18/16 06:30 Albumin 3.5 g/dl (3.4-5.0) 09/18/16 06:30 CARDIAC ENZYMES Creatine Kinase 46 IU/L (39-308) 09/14/16 05:35 Troponin I < 0.02 ng/ml (0.00-0.05) 09/14/16 05:35 Microbiology 09/16/16 17:10 Sputum - Aerosol Induced Gram Stain - Final 09/16/16 17:10 Sputum - Aerosol Induced Sputum Culture - Final Pseudomonas Aeruginosa 09/13/16 21:04 Blood - Peripheral Venous Blood Culture - Final NO GROWTH AFTER 5 DAYS INCUBATION 09/13/16 21:04 Blood - Peripheral Venous Blood Culture - Final NO GROWTH AFTER 5 DAYS INCUBATION 09/13/16 22:30 Urine - Urine - Catheterized Urine Culture - Final NO GROWTH OBTAINED Assessment: This is a 21 year old male with PMHx of profound mental retardation , herpes encephalopathy, seizure disorder, asthma who presented to the ED with acute respiratory distress and was found to have pneumonia. Plan: 1) Respiratory: Acute hypoxic respiratory failure 2/2 pneumonia - Chest CT with patchy groundglass opacification bilaterally possibly related to pulmonary vascular congestion, although diffuse pneumonia cannot be excluded - Baseline temp 95-96, today 100.1! - Sputum culture with Pseudomonas Aeruginosa - Levaquin and Tigacycline discontinued - Start Zosyn (09/19- ) - Appreciate ID consult Pulmonary vascular congestion - As evidence on CT chest - Continue with Lasix 20mg daily - Monitor I&O - Lungs CTA bilaterally anteriorly today 2) Neurology: Herpes encephalopathy - Continue acyclovir Seizure disorder - Continue clonazepam, clobazam, phenobarbital 3) F/E/N: - Promote @ 75mL/hr x 12 hours; lower hourly flushes to 10mL; no pre-post feeding flushes - Monitor electrolytes 4) Prophylaxis: - Heparin 5,000u sq tid - Functional quadriplegia 5) Dispo: - Requires continued inpatient care CODE STATUS: FULL CODE Visit type - Emergency Visit Emergency Visit: Yes ED Registration Date: 09/13/16 Care time: The patient presented to the Emergency Department on the above date and was hospitalized for further evaluation of their emergent condition. - New Patient This patient is new to me today: No - Critical Care Critical Care patient: No
[2016-09-19] MEDS ORDERED: ACETAMINOPHEN 650 MG SUPP.RECT PR ONE (18:26)
[2016-09-19] MEDS: LACTOBACILLUS ACIDOPHILUS 1 EACH TAB (FP) GT SCH (21:51)
[2016-09-20] MEDS: PIPERACILLIN/TAZOB 3.375 GM/50 ML PRE-DOCKED IVPB SCH ×3 (02:23→17:55)
[2016-09-20] MEDS: HEPARIN NA (PORCINE) 5,000 UNITS/ML 1ML VIAL SQ SCH ×3 (05:50→21:08)
[2016-09-20] MEDS: clonazePAM 0.5 MG TABLET GT SCH ×3 (05:50→21:08)
[2016-09-20] MEDS: ALBUTEROL SO4 2.5/IPRATROPIUM 0.5 INH SOL 3 ML VIAL.NEB. NEB SCH ×5 (06:00→23:30)
[2016-09-20] MEDS ORDERED: PT OWN MED DRAWER 7, Y5N ONE (10:48)
[2016-09-20] MEDS: PHENobarbital 20 MG/5 ML UNIT-DOSE CUP GT SCH ×2 (10:59→21:08)
[2016-09-20] MEDS: MAGNESIUM HYDROX 2400MG/30ML ORAL SUSPENSION 30 ML CUP PO SCH (10:59)
[2016-09-20] MEDS: BACLOFEN 10 MG TABLET (FP) GT SCH ×2 (11:00→21:08)
[2016-09-20] MEDS: cloBAZam 10 MG TABLET PO SCH (11:00)
[2016-09-20] MEDS: FLUTICASONE PROP 0.05% 16 GM NASAL SPRAY NS SCH (11:00)
[2016-09-20] MEDS: ACYCLOVIR 200 MG CAPSULE GT SCH ×2 (11:00→21:08)
[2016-09-20] MEDS: RANITIDINE HCL 150 MG/10 ML UNIT-DOSE CUP GT SCH ×2 (11:00→21:07)
[2016-09-20] MEDS: FUROSEMIDE 40 MG/4 ML INJECTABLE VIAL IVPUSH SCH (11:01)
[2016-09-20] MEDS: MULTIVIT MINERALS GT SCH (11:01)
[2016-09-20] MEDS: FERROUS GLUC GT SCH (11:01)
[2016-09-20] MEDS: BISACODYL 10 MG SUPP.RECT RC PRN (11:02)
--- NOTE | 2016-09-20 13:27 | PN ---
Progress Note (short form) - Note Progress Note: Subjective: The patient was seen and examined at the bedside, he remains non- verbal. Opens eyes to tactile stimuli Tmax 100.1 BUN increasing, will d/c lasix Current Medications Generic Name Dose Route Start Last Admin Trade Name Freq PRN Reason Stop Dose Admin Acyclovir 200 mg 09/14/16 10:00 09/20/16 11:00 Zovirax - GT 200 mg BID JORGE Administration Albuterol/Ipratropium 1 amp 09/14/16 06:00 09/20/16 06:00 Duoneb - NEB 1 amp QIDR JORGE Administration Baclofen 10 mg 09/14/16 10:00 09/20/16 11:00 Lioresal - GT 10 mg BID JORGE Administration Bisacodyl 10 mg 09/14/16 00:14 09/20/16 11:02 Dulcolax Suppository - RC 10 mg DAILY PRN Administration CONSTIPATION Clobazam 10 mg 09/14/16 10:00 09/20/16 11:00 Onfi - PO 10 mg DAILY JORGE Administration Clonazepam 0.5 mg 09/14/16 06:00 09/20/16 05:50 Klonopin - GT 0.5 mg TID OJRGE Administration Fluticasone Propionate 1 - 2 spray 09/14/16 10:00 09/20/16 11:00 Flonase - NS 2 sprays DAILY JORGE Administration Furosemide 20 mg 09/17/16 15:15 09/20/16 11:01 Lasix Injection - IVPUSH 20 mg DAILY JORGE Administration Heparin Sodium (Porcine) 5,000 unit 09/14/16 06:00 09/20/16 05:50 Heparin - SQ 5,000 unit TID JORGE Administration Lactobacillus Acidophilus 1 tab 09/14/16 22:00 09/19/16 21:51 Bacid - GT 1 tab HS JORGE Administration Magnesium Hydroxide 20 ml 09/14/16 10:00 09/20/16 10:59 Milk Of Magnesia - PO 20 ml DAILY JORGE Administration Phenobarbital 15 mg 09/14/16 10:00 09/20/16 10:59 Phenobarbital Liquid - GT 15 mg BID JORGE Administration Piperacillin Sod/Tazobactam Sod 3.375 gm 09/19/16 11:00 09/20/16 10:59 Zosyn 3.375gm Ivpb (Pre-Docked) IVPB 3.375 gm Q8H-IV JORGE Administration Protocol Ranitidine HCl 75 mg 09/14/16 10:00 09/20/16 11:00 Zantac Oral Solution - GT 75 mg BID JORGE Administration Objective: Vital Signs Period Temp Pulse Resp BP Sys/Linares Pulse Ox Last 24 Hr 97.6 F-100.1 F 71-113 20-21 118-139/73-84 100 Physical Exam GENERAL: NAD, nonverbal LUNGS: CTA bilaterally frequent course cough. HEART: RRR, S1S2 ABDOMEN: Soft, nontender, nondistended, normoactive bowel sounds, PEG tube in place. EXTREMITIES: Contracted. 2+ pulses, warm, well-perfused, no edema. NEUROLOGICAL: Nonverbal, unable to follow commands at baseline. SKIN: Warm, dry, normal turgor, cap refill < 3 seconds. CBCD WBC 9.9 K/mm3 (4.0-10.0) D 09/18/16 06:30 RBC 4.44 M/mm3 (4.00-5.60) 09/18/16 06:30 Hgb 14.7 GM/dL (11.7-16.9) D 09/18/16 06:30 Hct 43.8 % (35.4-49) 09/18/16 06:30 MCV 98.5 fl (80-96) H 09/18/16 06:30 MCHC 33.7 g/dl (32.0-35.9) 09/18/16 06:30 RDW 15.4 % (11.9-15.9) 09/18/16 06:30 Plt Count 211 K/MM3 (134-434) D 09/18/16 06:30 MPV 9.7 fl (7.5-11.1) 09/18/16 06:30 CMP Sodium 138 mmol/L (136-145) 09/18/16 06:30 Potassium 4.1 mmol/L (3.5-5.1) 09/18/16 06:30 Chloride 98 mmol/L (98-107) 09/18/16 06:30 Carbon Dioxide 31 mmol/L (21-32) 09/18/16 06:30 Anion Gap 9 (8-16) 09/18/16 06:30 BUN 31 mg/dL (7-18) H D 09/18/16 06:30 Creatinine 0.7 mg/dL (0.7-1.3) D 09/18/16 06:30 Creat Clearance w eGFR > 60 (>60) 09/18/16 06:30 Random Glucose 106 mg/dL (74-106) D 09/18/16 06:30 Calcium 9.6 mg/dL (8.5-10.1) 09/18/16 06:30 Total Bilirubin 0.4 mg/dL (0.2-1.0) 09/18/16 06:30 AST 50 U/L (15-37) H D 09/18/16 06:30 ALT 54 U/L (12-78) 09/18/16 06:30 Alkaline Phosphatase 310 U/L (45-117) H 09/18/16 06:30 Total Protein 9.2 g/dl (6.4-8.2) H 09/18/16 06:30 Albumin 3.5 g/dl (3.4-5.0) 09/18/16 06:30 CARDIAC ENZYMES Creatine Kinase 46 IU/L (39-308) 09/14/16 05:35 Troponin I < 0.02 ng/ml (0.00-0.05) 09/14/16 05:35 Microbiology 09/16/16 17:10 Sputum - Aerosol Induced Gram Stain - Final 09/16/16 17:10 Sputum - Aerosol Induced Sputum Culture - Final Pseudomonas Aeruginosa 09/13/16 21:04 Blood - Peripheral Venous Blood Culture - Final NO GROWTH AFTER 5 DAYS INCUBATION 09/13/16 21:04 Blood - Peripheral Venous Blood Culture - Final NO GROWTH AFTER 5 DAYS INCUBATION 09/13/16 22:30 Urine - Urine - Catheterized Urine Culture - Final NO GROWTH OBTAINED Assessment: This is a 21 year old male with PMHx of profound mental retardation , herpes encephalopathy, seizure disorder, asthma who presented to the ED with acute respiratory distress and was found to have pneumonia. Plan: 1) Respiratory: Acute hypoxic respiratory failure 2/2 pneumonia - Chest CT with patchy groundglass opacification bilaterally possibly related to pulmonary vascular congestion, although diffuse pneumonia cannot be excluded - Baseline temp 95-96, tmax yesterday 100.1 - Sputum culture with Pseudomonas Aeruginosa - Levaquin and Tigacycline discontinued (09/19) - Continue Zosyn (5/12- ) - Appreciate ID consult Pulmonary vascular congestion - As evidence on CT chest - Continue with Lasix 20mg daily - Monitor I&O - Lungs CTA bilaterally anteriorly today 2) Neurology: Herpes encephalopathy - Continue acyclovir Seizure disorder - Continue clonazepam, clobazam, phenobarbital 3) F/E/N: - Promote @ 75mL/hr x 12 hours; 10ml/hr water flush. Add 30ml pre/post feed flush as BUN uptrending - Monitor electrolytes 4) Prophylaxis: - Heparin 5,000u sq tid - Functional quadriplegia 5) Dispo: - Requires continued inpatient care CODE STATUS: FULL CODE Visit type - Emergency Visit Emergency Visit: Yes ED Registration Date: 09/13/16 Care time: The patient presented to the Emergency Department on the above date and was hospitalized for further evaluation of their emergent condition. - New Patient This patient is new to me today: No - Critical Care Critical Care patient: No
[2016-09-20] MEDS: AMINO ACIDS/PROTEIN HYDROLYS 30 ML LIQUID.PKT PO SCH (17:55)
[2016-09-20] MEDS: LACTOBACILLUS ACIDOPHILUS 1 EACH TAB (FP) GT SCH (21:08)
[2016-09-21] MEDS: PIPERACILLIN/TAZOB 3.375 GM/50 ML PRE-DOCKED IVPB SCH ×3 (01:46→17:37)
[2016-09-21] MEDS: BISACODYL 10 MG SUPP.RECT RC PRN (04:00)
[2016-09-21] MEDS ORDERED: ACETAMINOPHEN 650 MG SUPP.RECT PR ONE ×2 (06:00→17:45)
[2016-09-21] MEDS: ALBUTEROL SO4 2.5/IPRATROPIUM 0.5 INH SOL 3 ML VIAL.NEB. NEB SCH ×4 (06:15→23:12)
[2016-09-21] MEDS: HEPARIN NA (PORCINE) 5,000 UNITS/ML 1ML VIAL SQ SCH (06:32)
[2016-09-21] MEDS: clonazePAM 0.5 MG TABLET GT SCH ×3 (06:32→21:18)
[2016-09-21] MEDS ORDERED: HEPARIN NA (PORCINE) 5,000 UNITS/ML 1ML VIAL SQ ONE (07:00)
[2016-09-21] MEDS: AMINO ACIDS/PROTEIN HYDROLYS 30 ML LIQUID.PKT PO SCH ×2 (07:58→17:37)
[2016-09-21] MEDS: FERROUS GLUC GT SCH (10:02)
[2016-09-21] MEDS: MULTIVIT MINERALS GT SCH (10:02)
[2016-09-21] MEDS: cloBAZam 10 MG TABLET PO SCH (10:02)
[2016-09-21] MEDS: PHENobarbital 20 MG/5 ML UNIT-DOSE CUP GT SCH ×2 (10:02→21:18)
[2016-09-21] MEDS: BACLOFEN 10 MG TABLET (FP) GT SCH ×2 (10:02→21:18)
[2016-09-21] MEDS: MAGNESIUM HYDROX 2400MG/30ML ORAL SUSPENSION 30 ML CUP PO SCH (10:03)
[2016-09-21] MEDS: FLUTICASONE PROP 0.05% 16 GM NASAL SPRAY NS SCH (10:03)
[2016-09-21] MEDS: RANITIDINE HCL 150 MG/10 ML UNIT-DOSE CUP GT SCH ×2 (10:03→21:17)
[2016-09-21] MEDS: ACYCLOVIR 200 MG CAPSULE GT SCH (10:04)
--- NOTE | 2016-09-21 12:51 | PN ---
Progress Note (short form) - Note Progress Note: Subjective: The patient was seen and examined at the bedside, he remains non- verbal. Opens eyes to tactile stimuli Tmax 100.1 Current Medications Generic Name Dose Route Start Last Admin Trade Name Freq PRN Reason Stop Dose Admin Albuterol/Ipratropium 1 amp 09/14/16 06:00 09/21/16 11:15 Duoneb - NEB 1 amp QIDR JORGE Administration Amino Acids 30 ml 09/20/16 17:30 09/21/16 07:58 Prosource No Carb Liquid Pkt PO 30 ml BID@0800,1730 JORGE Administration Baclofen 10 mg 09/14/16 10:00 09/21/16 10:02 Lioresal - GT 10 mg BID JORGE Administration Bisacodyl 10 mg 09/14/16 00:14 09/21/16 04:00 Dulcolax Suppository - RC 10 mg DAILY PRN Administration CONSTIPATION Clonazepam 0.5 mg 09/14/16 06:00 09/21/16 06:32 Klonopin - GT 0.5 mg TID JORGE Administration Fluticasone Propionate 1 - 2 spray 09/14/16 10:00 09/21/16 10:03 Flonase - NS 2 sprays DAILY JORGE Administration Lactobacillus Acidophilus 1 tab 09/14/16 22:00 09/20/16 21:08 Bacid - GT 1 tab HS JORGE Administration Magnesium Hydroxide 20 ml 09/14/16 10:00 09/21/16 10:03 Milk Of Magnesia - PO 20 ml DAILY JORGE Administration Phenobarbital 15 mg 09/14/16 10:00 09/21/16 10:02 Phenobarbital Liquid - GT 15 mg BID JORGE Administration Piperacillin Sod/Tazobactam Sod 3.375 gm 09/19/16 11:00 09/21/16 10:03 Zosyn 3.375gm Ivpb (Pre-Docked) IVPB 3.375 gm Q8H-IV JORGE Administration Protocol Ranitidine HCl 75 mg 09/14/16 10:00 09/21/16 10:03 Zantac Oral Solution - GT 75 mg BID JORGE Administration Objective: Vital Signs Period Temp Pulse Resp BP Sys/Linares Pulse Ox Last 24 Hr 97 F-100.1 F 70-106 18-20 100-110/58-68 93-100 Physical Exam GENERAL: NAD, nonverbal LUNGS: CTA bilaterally HEART: RRR, S1S2 ABDOMEN: Soft, nontender, nondistended, normoactive bowel sounds, PEG tube in place. EXTREMITIES: Contracted. 2+ pulses, warm, well-perfused, no edema. NEUROLOGICAL: Nonverbal, unable to follow commands at baseline. SKIN: Warm, dry, normal turgor, cap refill < 3 seconds. CBCD WBC 9.9 K/mm3 (4.0-10.0) D 09/18/16 06:30 RBC 4.44 M/mm3 (4.00-5.60) 09/18/16 06:30 Hgb 14.7 GM/dL (11.7-16.9) D 09/18/16 06:30 Hct 43.8 % (35.4-49) 09/18/16 06:30 MCV 98.5 fl (80-96) H 09/18/16 06:30 MCHC 33.7 g/dl (32.0-35.9) 09/18/16 06:30 RDW 15.4 % (11.9-15.9) 09/18/16 06:30 Plt Count 211 K/MM3 (134-434) D 09/18/16 06:30 MPV 9.7 fl (7.5-11.1) 09/18/16 06:30 CMP Sodium 138 mmol/L (136-145) 09/18/16 06:30 Potassium 4.1 mmol/L (3.5-5.1) 09/18/16 06:30 Chloride 98 mmol/L (98-107) 09/18/16 06:30 Carbon Dioxide 31 mmol/L (21-32) 09/18/16 06:30 Anion Gap 9 (8-16) 09/18/16 06:30 BUN 31 mg/dL (7-18) H D 09/18/16 06:30 Creatinine 0.7 mg/dL (0.7-1.3) D 09/18/16 06:30 Creat Clearance w eGFR > 60 (>60) 09/18/16 06:30 Random Glucose 106 mg/dL (74-106) D 09/18/16 06:30 Calcium 9.6 mg/dL (8.5-10.1) 09/18/16 06:30 Total Bilirubin 0.4 mg/dL (0.2-1.0) 09/18/16 06:30 AST 50 U/L (15-37) H D 09/18/16 06:30 ALT 54 U/L (12-78) 09/18/16 06:30 Alkaline Phosphatase 310 U/L (45-117) H 09/18/16 06:30 Total Protein 9.2 g/dl (6.4-8.2) H 09/18/16 06:30 Albumin 3.5 g/dl (3.4-5.0) 09/18/16 06:30 CARDIAC ENZYMES Creatine Kinase 46 IU/L (39-308) 09/14/16 05:35 Troponin I < 0.02 ng/ml (0.00-0.05) 09/14/16 05:35 Microbiology 09/16/16 17:10 Sputum - Aerosol Induced Gram Stain - Final 09/16/16 17:10 Sputum - Aerosol Induced Sputum Culture - Final Pseudomonas Aeruginosa 09/13/16 21:04 Blood - Peripheral Venous Blood Culture - Final NO GROWTH AFTER 5 DAYS INCUBATION 09/13/16 21:04 Blood - Peripheral Venous Blood Culture - Final NO GROWTH AFTER 5 DAYS INCUBATION 09/13/16 22:30 Urine - Urine - Catheterized Urine Culture - Final NO GROWTH OBTAINED Assessment: This is a 21 year old male with PMHx of profound mental retardation , herpes encephalopathy, seizure disorder, asthma who presented to the ED with acute respiratory distress and was found to have pneumonia. Plan: 1) Respiratory: Acute hypoxic respiratory failure 2/2 pneumonia - Chest CT with patchy groundglass opacification bilaterally possibly related to pulmonary vascular congestion, although diffuse pneumonia cannot be excluded - Baseline temp 95-96, tmax 100.1 - Sputum culture with Pseudomonas Aeruginosa - Levaquin and Tigacycline discontinued (09/19) - Continue Zosyn (09/19- ) - Appreciate ID consult Pulmonary vascular congestion - Lungs CTA bilaterally now, repeat chest x-ray to assess congestion - Lasix discontinued due to rising BUN and patient appears more dry - Monitor I&O 2) Neurology: Herpes encephalopathy - Continue acyclovir Seizure disorder - Continue clonazepam, clobazam, phenobarbital 3) F/E/N: - Promote @ 75mL/hr x 12 hours; 10ml/hr water flush. Add 30ml pre/post feed flush - Monitor electrolytes 4) Prophylaxis: - Heparin 5,000u sq tid - Functional quadriplegia 5) Dispo: - Requires continued inpatient care CODE STATUS: FULL CODE Visit type - Emergency Visit Emergency Visit: Yes ED Registration Date: 09/13/16 Care time: The patient presented to the Emergency Department on the above date and was hospitalized for further evaluation of their emergent condition. - New Patient This patient is new to me today: No - Critical Care Critical Care patient: No
[2016-09-21 14:54] LABS: CALCIUM 9.2 mg/dL (8.5-10.1); COCKROFT - GAULT 110.91; CREATININE 0.7 mg/dL (0.7-1.3)
[2016-09-21 19:44] LABS: URINE APPEARANCE CLEAR; URINE BILIRUBIN NEGATIVE (NEGATIVE); URINE BLOOD NEGATIVE (NEGATIVE); URINE COLOR DKYELLOW; URINE GLUCOSE (UA) NEGATIVE (NEGATIVE); URINE KETONE NEGATIVE (NEGATIVE); URINE LEUK ESTERASE NEGATIVE (NEGATIVE); URINE NITRITE NEGATIVE (NEGATIVE); URINE PROTEIN NEGATIVE (NEGATIVE); URINE UROBILINOGEN NEGATIVE E.U./dl (0.2-1.0)
[2016-09-21] MEDS: LACTOBACILLUS ACIDOPHILUS 1 EACH TAB (FP) GT SCH (21:18)
[2016-09-21] MEDS: ACETAMINOPHEN 650 MG SUPP.RECT PR PRN (23:30)
[2016-09-22] MEDS: PIPERACILLIN/TAZOB 3.375 GM/50 ML PRE-DOCKED IVPB SCH ×3 (03:00→17:51)
[2016-09-22] MEDS: ACETAMINOPHEN 650 MG SUPP.RECT PR PRN (05:03)
[2016-09-22] MEDS: clonazePAM 0.5 MG TABLET GT SCH ×3 (05:20→22:20)
[2016-09-22] MEDS: ALBUTEROL SO4 2.5/IPRATROPIUM 0.5 INH SOL 3 ML VIAL.NEB. NEB SCH ×2 (07:02→11:53)
[2016-09-22 08:08] LABS: MCH 33.2 pg (25.7-33.7); MCHC 33.6 g/dl (32.0-35.9); MEAN CELL VOLUME 98.6 fl (80-96); MEAN PLT VOLUME 10.2 fl (7.5-11.1); PLATELET COUNT 256 K/MM3 (134-434); RDW 15.1 % (11.9-15.9)
[2016-09-22 08:39] LABS: ALBUMIN 3.3 g/dl (3.4-5.0); ANION GAP 11 (8-16); BILIRUBIN,TOTAL 0.4 mg/dL (0.2-1.0); CALCIUM 8.9 mg/dL (8.5-10.1); CO2 35 mmol/L (21-32); COCKROFT - GAULT 110.91; CREATININE 0.7 mg/dL (0.7-1.3); GLUCOSE,RANDOM 134 mg/dL (74-106); SGOT/AST 57 U/L (15-37); SGPT/ALT 68 U/L (12-78); TOT PROT 8.8 g/dl (6.4-8.2)
[2016-09-22 08:40] LABS: ALK PHOS 253 U/L (45-117)
[2016-09-22] MEDS: AMINO ACIDS/PROTEIN HYDROLYS 30 ML LIQUID.PKT PO SCH ×2 (08:52→17:51)
[2016-09-22] MEDS ORDERED: PT OWN MED DRAWER 7, Y5N ONE ×3 (09:13→22:12)
[2016-09-22] MEDS: BACLOFEN 10 MG TABLET (FP) GT SCH ×2 (09:18→22:20)
[2016-09-22] MEDS: PHENobarbital 20 MG/5 ML UNIT-DOSE CUP GT SCH ×2 (09:18→22:20)
[2016-09-22] MEDS: MAGNESIUM HYDROX 2400MG/30ML ORAL SUSPENSION 30 ML CUP PO SCH (09:18)
[2016-09-22] MEDS: FLUTICASONE PROP 0.05% 16 GM NASAL SPRAY NS SCH (09:19)
[2016-09-22] MEDS: MULTIVIT MINERALS GT SCH (09:25)
[2016-09-22] MEDS: RANITIDINE HCL 150 MG/10 ML UNIT-DOSE CUP GT SCH ×2 (09:25→22:20)
[2016-09-22] MEDS: FERROUS GLUC GT SCH (09:25)
--- NOTE | 2016-09-22 11:21 | PN ---
Progress Note (short form) - Note Progress Note: ID Lizet Appears comfortable Low grade temps Selected Entries 09/21/16 09/22/16 09/22/16 23:30 02:00 06:00 Temperature 100.5 F H 100.6 F H 100.7 F H Selected Entries 09/22/16 06:00 Temperature 100.7 F H Pulse Rate 95 H Respiratory 26 H Rate Blood Pressure 117/80 Lung Clear Cor S1 S2 RR Abd Soft nontender Ext Contracted Microbiology 09/16/16 17:10 Sputum - Aerosol Induced Gram Stain - Final 09/16/16 17:10 Sputum - Aerosol Induced Sputum Culture - Final Pseudomonas Aeruginosa 09/13/16 22:30 Urine - Urine - Catheterized Urine Culture - Final NO GROWTH OBTAINED 09/13/16 21:04 Blood - Peripheral Venous Blood Culture - Final NO GROWTH AFTER 5 DAYS INCUBATION 09/13/16 21:04 Blood - Peripheral Venous Blood Culture - Final NO GROWTH AFTER 5 DAYS INCUBATION Laboratory Tests 09/22/16 09/22/16 07:10 07:10 WBC 8.0 Hgb 13.9 Hct 41.4 Plt Count 256 D BUN 27 H Creatinine 0.7 Assessment Low grade fevers now he didnt have before Worsening air space disease hypoxemia tachypnea ? infectious vs noninfectious Plan Continue Zosyn Pulmonary eval Spoke to Dr Albert Jordan MD Plan Continue Zosyn for now but obtain pulmonary to see ? bronch Problem List - Problems (1) Pneumonia Code(s): J18.9 - PNEUMONIA, UNSPECIFIED ORGANISM (2) Sepsis Code(s): A41.9 - SEPSIS, UNSPECIFIED ORGANISM (3) Multiple drug resistant organism (MDRO) culture positive Code(s): Z16.24 - RESISTANCE TO MULTIPLE ANTIBIOTICS
--- NOTE | 2016-09-22 11:47 | CON.PULM ---
Consult Consult Specialty:: PULM/CCM Referred by:: MARTINA Reason for Consultation:: Abnormal CXR - History of Present Illness Chief Complaint: SOB History of Present Illness: 21 M, past medical history of Herpes encephalitis, mental retardation, and a recent admission during which he required intubation for aspiration PNA. Patient was readmitted from the detention due to possible PNA. Patient is non-verbal and not able to provide a history. CXR : Progressive diffuse parenchymal changes from admission / CT : diffuse multilobar process that appears like pulmonary vascular congestion - History Source History Provided By: Medical Record Limitations to Obtaining History: Clinical Condition - Alcohol/Substance Use Hx Alcohol Use: No - Smoking History Smoking history: Never smoked Have you smoked in the past 12 months: No Aproximately how many cigarettes per day: 0 Home Medications - Allergies Allergies/Adverse Reactions: Allergies Allergy/AdvReac Type Severity Reaction Status Date / Time No Known Allergies Allergy Verified 09/13/16 20:23 - Home Medications Home Medications: Ambulatory Orders Acyclovir 200 mg PO BID 06/26/16 Albuterol 0.083% Nebulizer Meron [Ventolin 0.083% Nebulizer Soln -] 1 neb NEB QID 06/26/16 Baclofen 10 mg PO BID 06/26/16 Benzoyl Peroxide 5% Gel - 1 applic TP DAILY 06/26/16 Bisacodyl [Biscolax] 10 mg RC DAILY 06/26/16 Budesonide/Formeterol Fumarate [SYMBICORT 160/4.5mcg -] 1 inh PO BID 06/26/16 Clobazam [Onfi -] 10 mg PO DAILY 06/26/16 Clonazepam [KlonoPIN] 0.5 mg GT TID 06/26/16 Diazepam [Diastat Acudial] 10 mg RC DAILY 06/26/16 Fluticasone Prop 0.05% Nasal [Flonase -] 1 - 2 spray NS DAILY 06/26/16 Fructooligosaccharides/Polydex [Fiber-Stat 15 gm/30 ml Liquid] 15 gm PO DAILY Hydrocolloid Dressing [Duoderm] 1 each TP HS PRN 06/26/16 Ipratropium/Albuterol Sulfate [Iprat-Albut 0.5-3(2.5) mg/3 ml] 3 ml IH Q6H 06/26 Lactobacillus Acidophilus [Acidophilus] 1 each PO HS 06/26/16 Magnesium Hydroxide [Milk of Magnesia] 20 ml PO DAILY 06/26/16 Multivitamin [Poly-Vitamin] 1 each GT DAILY 06/26/16 Phenobarbital 16.2 mg PO BID 06/26/16 Ranitidine HCl [Zantac 75] 75 mg PO BID 06/26/16 Review of Systems Unable to obtain ROS, reason: not able to provide Physical Exam Vital Sings: Vital Signs Temperature 100.7 F H 09/22/16 06:00 Pulse Rate 95 H 09/22/16 06:00 Respiratory Rate 26 H 09/22/16 06:00 Blood Pressure 117/80 09/22/16 06:00 O2 Sat by Pulse Oximetry (%) 94 L 09/21/16 21:00 Constitutional: Yes: No Distress Eyes: Yes: Conjunctiva Clear HENT: Yes: Atraumatic Neck: Yes: Supple, Trachea Midline Cardiovascular: Yes: Tachycardia Respiratory: Yes: Cough, On Nasal O2, Rales, Rhonchi, Tachypnea. No: Accessory Muscle Use, Stridor, Wheezes ...Inspection: Yes: Trachea Midline. No: Use of Accessory Muscles ...Clubbing: No Gastrointestinal: Yes: Normal Bowel Sounds, Soft Musculoskeletal: Yes: Joint Stiffness Extremities: Yes: Shortened Edema: No Peripheral Pulses WNL: Yes Neurological: Yes: Pre-Existing Deficit Labs: CBC, BMP 09/22/16 07:10 09/22/16 07:10 Imaging - Results Chest X-ray: Report Reviewed, Image Reviewed Cat Scan: Report Reviewed, Image Reviewed Problem List - Problems (1) Pneumonia Code(s): J18.9 - PNEUMONIA, UNSPECIFIED ORGANISM (2) Hypothermia Code(s): T68.XXXA - HYPOTHERMIA, INITIAL ENCOUNTER (3) Seizure Code(s): R56.9 - UNSPECIFIED CONVULSIONS (4) Asthma Code(s): J45.909 - UNSPECIFIED ASTHMA, UNCOMPLICATED (5) Epilepsy Code(s): G40.909 - EPILEPSY, UNSP, NOT INTRACTABLE, WITHOUT STATUS EPILEPTICUS (6) Profound mental retardation Code(s): F73 - PROFOUND INTELLECTUAL DISABILITIES (7) Aspiration pneumonia Code(s): J69.0 - PNEUMONITIS DUE TO INHALATION OF FOOD AND VOMIT Assessment/Plan PLAN: Imaging consistent with diffuse Pulmonary vascular congestion (too diffuse to be PNA or purely interstitial process) -> Trial of Lasix O2 as needed ABX per ID Aspiration precautions Will repeat CXR in AM Noted BD TX ordered No clear role for systemic steroids at this time Will follow Thank you. Dr Price
[2016-09-22] MEDS ORDERED: FUROSEMIDE 40 MG/4 ML INJECTABLE VIAL IVPUSH ONE (12:00)
[2016-09-22 12:30] LABS: C-REACTIVE PROTEIN 1.4 MG/DL (0.00-0.3)
--- NOTE | 2016-09-22 15:18 | PN ---
Physical Exam: SUBJECTIVE: Patient seen and examined at bedside. OBJECTIVE: Vital Signs Period Temp Pulse Resp BP Sys/Linares Pulse Ox Last 24 Hr 99 F-100.7 F 82-95 18-26 107-120/63-80 94-95 GENERAL/NEURO: The patient nonverbal at baseline. No signs of distress. LUNGS:Rales and rhonchi throughout HEART: Regular rate and rhythm, S1, S2 without murmur, rub or gallop. ABDOMEN: Soft, nontender, nondistended, normoactive bowel sounds, no guarding, no rebound; PEG in place, surrounding skin intact EXTREMITIES: 2+ pulses, warm, well-perfused, no edema. All four extremities contracted. Laboratory Results - last 24 hr 09/21/16 09/22/16 09/22/16 18:13 07:10 07:10 WBC 8.0 RBC 4.20 Hgb 13.9 Hct 41.4 MCV 98.6 H MCHC 33.6 RDW 15.1 Plt Count 256 D MPV 10.2 Sodium 141 Potassium 3.5 Chloride 95 L Carbon Dioxide 35 H Anion Gap 11 BUN 27 H Creatinine 0.7 Creat Clearance w eGFR > 60 Random Glucose 134 H Calcium 8.9 Total Bilirubin 0.4 AST 57 H ALT 68 D Alkaline Phosphatase 253 H C-Reactive Protein 1.4 H Total Protein 8.8 H Albumin 3.3 L Urine Color Dkyellow Urine Appearance Clear Urine pH 7.0 D Ur Specific [place] 1.015 Urine Protein Negative Urine Glucose (UA) Negative Urine Ketones Negative Urine Blood Negative Urine Nitrite Negative Urine Bilirubin Negative Urine Urobilinogen Negative Ur Leukocyte Esterase Negative 09/22/16 07:10 WBC RBC Hgb Hct MCV MCHC RDW Plt Count MPV Sodium Potassium Chloride Carbon Dioxide Anion Gap BUN Creatinine Creat Clearance w eGFR Random Glucose Calcium Total Bilirubin AST ALT Alkaline Phosphatase C-Reactive Protein Cancelled Total Protein Albumin Urine Color Urine Appearance Urine pH Ur Specific [place] Urine Protein Urine Glucose (UA) Urine Ketones Urine Blood Urine Nitrite Urine Bilirubin Urine Urobilinogen Ur Leukocyte Esterase Active Medications Generic Name Dose Route Start Last Admin Trade Name Freq PRN Reason Stop Dose Admin Acetaminophen 650 mg 09/21/16 17:56 09/22/16 05:03 Tylenol Suppository - MI 650 mg Q6H PRN Administration FEVER OR PAIN Amino Acids 30 ml 09/20/16 17:30 09/22/16 08:52 Prosource No Carb Liquid Pkt PO 30 ml BID@0800,1730 JORGE Administration Baclofen 10 mg 09/14/16 10:00 09/22/16 09:18 Lioresal - GT 10 mg BID JORGE Administration Bisacodyl 10 mg 09/14/16 00:14 09/21/16 04:00 Dulcolax Suppository - RC 10 mg DAILY PRN Administration CONSTIPATION Clonazepam 0.5 mg 09/14/16 06:00 09/22/16 13:50 Klonopin - GT 0.5 mg TID JORGE Administration Fluticasone Propionate 1 - 2 spray 09/14/16 10:00 09/22/16 09:19 Flonase - NS 2 sprays DAILY JORGE Administration Lactobacillus Acidophilus 1 tab 09/14/16 22:00 09/21/16 21:18 Bacid - GT 1 tab HS JORGE Administration Magnesium Hydroxide 20 ml 09/14/16 10:00 09/22/16 09:18 Milk Of Magnesia - PO 20 ml DAILY JORGE Administration Phenobarbital 15 mg 09/14/16 10:00 09/22/16 09:18 Phenobarbital Liquid - GT 15 mg BID JORGE Administration Piperacillin Sod/Tazobactam Sod 3.375 gm 09/19/16 11:00 09/22/16 09:18 Zosyn 3.375gm Ivpb (Pre-Docked) IVPB 3.375 gm Q8H-IV JORGE Administration Protocol Ranitidine HCl 75 mg 09/14/16 10:00 09/22/16 09:25 Zantac Oral Solution - GT 75 mg BID JORGE Administration Microbiology 09/16/16 17:10 Sputum - Aerosol Induced Gram Stain - Final 09/16/16 17:10 Sputum - Aerosol Induced Sputum Culture - Final Pseudomonas Aeruginosa 09/13/16 21:04 Blood - Peripheral Venous Blood Culture - Final NO GROWTH AFTER 5 DAYS INCUBATION 09/13/16 21:04 Blood - Peripheral Venous Blood Culture - Final NO GROWTH AFTER 5 DAYS INCUBATION 09/13/16 22:30 Urine - Urine - Catheterized Urine Culture - Final NO GROWTH OBTAINED ASSESSMENT/PLAN: Pseudomonas pneumonia --still with low grade fevers, WBC wnl --continue Zosyn (day #4) --ID following --pulm following Pulmonary venous congestion --continue Lasix IV 20mg daily Herpes encephalopathy --continue acyclovir Seizure disorder --continue phenobarbital, clobazam, clonazepam Asthma --continue symbicort, albuterol nebs Functional Quadriplegia --contracted all extremities, dependent for all ADLs F/E/N Fluids/Nutrition: Promote @ 75mL/hr x 12 hours; hourly flushes to 10mL; 30mL pre-post feeding flush Electrolyes: replete as indicated DVT prophylaxis: subq heparin Dispo: continues to require inpatient care. Full Code. Visit type - Emergency Visit Emergency Visit: Yes ED Registration Date: 09/13/16 Care time: The patient presented to the Emergency Department on the above date and was hospitalized for further evaluation of their emergent condition. - New Patient This patient is new to me today: No - Critical Care Critical Care patient: No
[2016-09-22] MEDS: LACTOBACILLUS ACIDOPHILUS 1 EACH TAB (FP) GT SCH (22:19)
[2016-09-23] MEDS: PIPERACILLIN/TAZOB 3.375 GM/50 ML PRE-DOCKED IVPB SCH ×3 (01:24→18:05)
[2016-09-23] MEDS: clonazePAM 0.5 MG TABLET GT SCH ×3 (05:29→22:31)
[2016-09-23] MEDS: AMINO ACIDS/PROTEIN HYDROLYS 30 ML LIQUID.PKT PO SCH ×2 (08:56→17:12)
[2016-09-23] MEDS ORDERED: FUROSEMIDE 40 MG/4 ML INJECTABLE VIAL IVPUSH SCH (10:00)
[2016-09-23] MEDS ORDERED: PT OWN MED DRAWER 7, Y5N ONE ×3 (10:29→22:28)
[2016-09-23] MEDS: FLUTICASONE PROP 0.05% 16 GM NASAL SPRAY NS SCH (10:39)
[2016-09-23] MEDS: MAGNESIUM HYDROX 2400MG/30ML ORAL SUSPENSION 30 ML CUP PO SCH (10:54)
[2016-09-23] MEDS: PHENobarbital 20 MG/5 ML UNIT-DOSE CUP GT SCH ×2 (10:56→22:31)
[2016-09-23] MEDS: BACLOFEN 10 MG TABLET (FP) GT SCH ×2 (11:01→22:31)
[2016-09-23] MEDS: RANITIDINE HCL 150 MG/10 ML UNIT-DOSE CUP GT SCH ×2 (11:01→22:30)
[2016-09-23] MEDS: MULTIVIT MINERALS GT SCH (11:02)
[2016-09-23] MEDS: FERROUS GLUC GT SCH (11:02)
--- NOTE | 2016-09-23 11:49 | PN ---
Progress Note (short form) - Note Progress Note: no oxygen- no respiratory distress no diarrhea Vital Signs Period Temp Pulse Resp BP Sys/Linares Pulse Ox Last 24 Hr 98.1 F-99.8 F 61-90 18-22 102-117/61-66 95-95 cor-rrr lungs decreased bs at bases abd soft,nt ext no edema CBC, BMP 09/22/16 07:10 09/22/16 07:10 cxray improved Microbiology 09/21/16 18:13 Urine - Urine - Catheterized Urine Culture - Final NO GROWTH OBTAINED 09/21/16 20:33 Blood - Peripheral Venous Blood Culture - Preliminary NO GROWTH OBTAINED AFTER 24 HOURS, INCUBATION TO CONTINUE FOR 4 DAYS. 09/21/16 20:33 Blood - Peripheral Venous Blood Culture - Preliminary NO GROWTH OBTAINED AFTER 24 HOURS, INCUBATION TO CONTINUE FOR 4 DAYS. a/p pneumonia- ?CHF leukocytosis resolved on lasix history of resistant organisms multiple developmental delays fevers trending down zosyn day #4
--- NOTE | 2016-09-23 12:25 | PN ---
Progress Note (short form) - Note Progress Note: Resting in NAD. Afebrile. CXR : Improved vascular congestion Intake & Output 09/20/16 09/21/16 09/22/16 09/23/16 23:59 23:59 23:59 23:59 Intake Total 1550 1230 855 655 Output Total 1100 300 Balance 450 930 855 655 Last Vital Signs Temp Pulse Resp BP Pulse Ox 98.8 F 79 20 117/69 95 09/23/16 12:03 09/23/16 12:03 09/23/16 12:03 09/23/16 12:03 09/22/16 21:00 Active Medications Acetaminophen (Tylenol Suppository -) 650 mg [place] Q6H PRN PRN Reason: FEVER OR PAIN Last Admin: 09/22/16 05:03 Dose: 650 mg Amino Acids (Prosource No Carb Liquid Pkt) 30 ml PO BID@0800,1730 [facility] Last Admin: 09/23/16 08:56 Dose: 30 ml Baclofen (Lioresal -) 10 mg GT BID [facility] Last Admin: 09/23/16 11:01 Dose: 10 mg Bisacodyl (Dulcolax Suppository -) 10 mg RC DAILY PRN PRN Reason: CONSTIPATION Last Admin: 09/21/16 04:00 Dose: 10 mg Clonazepam (Klonopin -) 0.5 mg GT TID [facility] Last Admin: 09/23/16 05:29 Dose: 0.5 mg Fluticasone Propionate (Flonase -) 1 - 2 spray NS DAILY [facility] Last Admin: 09/23/16 10:39 Dose: 1 sprays Furosemide (Lasix Injection -) 20 mg IVPUSH DAILY [facility] Last Admin: 09/23/16 10:40 Dose: 20 mg Lactobacillus Acidophilus (Bacid -) 1 tab GT HS [facility] Last Admin: 09/22/16 22:19 Dose: 1 tab Magnesium Hydroxide (Milk Of Magnesia -) 20 ml PO DAILY [facility] Last Admin: 09/23/16 10:54 Dose: 20 ml Phenobarbital (Phenobarbital Liquid -) 15 mg GT BID [facility] Last Admin: 09/23/16 10:56 Dose: 15 mg Piperacillin Sod/Tazobactam Sod (Zosyn 3.375gm Ivpb (Pre-Docked)) 3.375 gm IVPB Q8H-IV JORGE PRN Reason: Protocol Last Admin: 09/23/16 10:39 Dose: 3.375 gm Ranitidine HCl (Zantac Oral Solution -) 75 mg GT BID JORGE Last Admin: 09/23/16 11:01 Dose: 75 mg Constitutional: Yes: No Distress Eyes: Yes: Conjunctiva Clear HENT: Yes: Atraumatic Neck: Yes: Supple, Trachea Midline Cardiovascular: Yes: Tachycardia Respiratory: Yes: Cough, On Nasal O2, Rales, Rhonchi, Tachypnea. No: Accessory Muscle Use, Stridor, Wheezes ...Inspection: Yes: Trachea Midline. No: Use of Accessory Muscles ...Clubbing: No Gastrointestinal: Yes: Normal Bowel Sounds, Soft Musculoskeletal: Yes: Joint Stiffness Extremities: Yes: Shortened Edema: No Peripheral Pulses WNL: Yes Neurological: Yes: Pre-Existing Deficit Labs: Laboratory Results - last 24 hr 09/22/16 07:10 C-Reactive Protein 1.4 H Problem List - Problems (1) Pneumonia Code(s): J18.9 - PNEUMONIA, UNSPECIFIED ORGANISM (2) Hypothermia Code(s): T68.XXXA - HYPOTHERMIA, INITIAL ENCOUNTER (3) Seizure Code(s): R56.9 - UNSPECIFIED CONVULSIONS (4) Asthma Code(s): J45.909 - UNSPECIFIED ASTHMA, UNCOMPLICATED (5) Epilepsy Code(s): G40.909 - EPILEPSY, UNSP, NOT INTRACTABLE, WITHOUT STATUS EPILEPTICUS (6) Profound mental retardation Code(s): F73 - PROFOUND INTELLECTUAL DISABILITIES (7) Aspiration pneumonia Code(s): J69.0 - PNEUMONITIS DUE TO INHALATION OF FOOD AND VOMIT Assessment/Plan PLAN: Daily Assessment for Lasix O2 as needed ABX per ID Aspiration precautions Noted BD TX ordered No clear role for systemic steroids at this time Dr Price Problem List - Problems (1) Pneumonia Code(s): J18.9 - PNEUMONIA, UNSPECIFIED ORGANISM (2) Hypothermia Code(s): T68.XXXA - HYPOTHERMIA, INITIAL ENCOUNTER (3) Seizure Code(s): R56.9 - UNSPECIFIED CONVULSIONS (4) Asthma Code(s): J45.909 - UNSPECIFIED ASTHMA, UNCOMPLICATED (5) Epilepsy Code(s): G40.909 - EPILEPSY, UNSP, NOT INTRACTABLE, WITHOUT STATUS EPILEPTICUS (6) Profound mental retardation Code(s): F73 - PROFOUND INTELLECTUAL DISABILITIES (7) Aspiration pneumonia Code(s): J69.0 - PNEUMONITIS DUE TO INHALATION OF FOOD AND VOMIT
--- NOTE | 2016-09-23 17:01 | PN ---
Physical Exam: SUBJECTIVE: Patient seen and examined at bedside. OBJECTIVE: Vital Signs Period Temp Pulse Resp BP Sys/Linares Pulse Ox Last 24 Hr 98.1 F-100.1 F 61-88 20-22 102-120/61-69 95-97 GENERAL/NEURO: The patient nonverbal at baseline. No signs of distress. LUNGS:Rales and rhonchi throughout HEART: Regular rate and rhythm, S1, S2 without murmur, rub or gallop. ABDOMEN: Soft, nontender, nondistended, normoactive bowel sounds, no guarding, no rebound; PEG in place, surrounding skin intact EXTREMITIES: 2+ pulses, warm, well-perfused, no edema. All four extremities contracted. CBCD WBC 8.0 K/mm3 (4.0-10.0) 09/22/16 07:10 RBC 4.20 M/mm3 (4.00-5.60) 09/22/16 07:10 Hgb 13.9 GM/dL (11.7-16.9) 09/22/16 07:10 Hct 41.4 % (35.4-49) 09/22/16 07:10 MCV 98.6 fl (80-96) H 09/22/16 07:10 MCHC 33.6 g/dl (32.0-35.9) 09/22/16 07:10 RDW 15.1 % (11.9-15.9) 09/22/16 07:10 Plt Count 256 K/MM3 (134-434) D 09/22/16 07:10 MPV 10.2 fl (7.5-11.1) 09/22/16 07:10 CMP Sodium 141 mmol/L (136-145) 09/22/16 07:10 Potassium 3.5 mmol/L (3.5-5.1) 09/22/16 07:10 Chloride 95 mmol/L (98-107) L 09/22/16 07:10 Carbon Dioxide 35 mmol/L (21-32) H 09/22/16 07:10 Anion Gap 11 (8-16) 09/22/16 07:10 BUN 27 mg/dL (7-18) H 09/22/16 07:10 Creatinine 0.7 mg/dL (0.7-1.3) 09/22/16 07:10 Creat Clearance w eGFR > 60 (>60) 09/22/16 07:10 Calcium 8.9 mg/dL (8.5-10.1) 09/22/16 07:10 Total Bilirubin 0.4 mg/dL (0.2-1.0) 09/22/16 07:10 AST 57 U/L (15-37) H 09/22/16 07:10 ALT 68 U/L (12-78) D 09/22/16 07:10 Alkaline Phosphatase 253 U/L (45-117) H 09/22/16 07:10 Total Protein 8.8 g/dl (6.4-8.2) H 09/22/16 07:10 Albumin 3.3 g/dl (3.4-5.0) L 09/22/16 07:10 Laboratory Results - last 24 hr 09/23/16 06:25 ESR 60 H Active Medications Generic Name Dose Route Start Last Admin Trade Name Freq PRN Reason Stop Dose Admin Acetaminophen 650 mg 09/21/16 17:56 09/22/16 05:03 Tylenol Suppository - [place] 650 mg Q6H PRN Administration FEVER OR PAIN Amino Acids 30 ml 09/20/16 17:30 09/23/16 08:56 Prosource No Carb Liquid Pkt PO 30 ml BID@0800,1730 JORGE Administration Baclofen 10 mg 09/14/16 10:00 09/23/16 11:01 Lioresal - GT 10 mg BID JORGE Administration Bisacodyl 10 mg 09/14/16 00:14 09/21/16 04:00 Dulcolax Suppository - RC 10 mg DAILY PRN Administration CONSTIPATION Clonazepam 0.5 mg 09/14/16 06:00 09/23/16 14:39 Klonopin - GT 0.5 mg TID JORGE Administration Fluticasone Propionate 1 - 2 spray 09/14/16 10:00 09/23/16 10:39 Flonase - NS 1 sprays DAILY JORGE Administration Furosemide 20 mg 09/23/16 10:00 09/23/16 10:40 Lasix Injection - IVPUSH 20 mg DAILY JORGE Administration Lactobacillus Acidophilus 1 tab 09/14/16 22:00 09/22/16 22:19 Bacid - GT 1 tab HS JORGE Administration Magnesium Hydroxide 20 ml 09/14/16 10:00 09/23/16 10:54 Milk Of Magnesia - PO 20 ml DAILY JORGE Administration Phenobarbital 15 mg 09/14/16 10:00 09/23/16 10:56 Phenobarbital Liquid - GT 15 mg BID JORGE Administration Piperacillin Sod/Tazobactam Sod 3.375 gm 09/19/16 11:00 09/23/16 10:39 Zosyn 3.375gm Ivpb (Pre-Docked) IVPB 3.375 gm Q8H-IV JORGE Administration Protocol Ranitidine HCl 75 mg 09/14/16 10:00 09/23/16 11:01 Zantac Oral Solution - GT 75 mg BID JORGE Administration Microbiology 09/16/16 17:10 Sputum - Aerosol Induced Gram Stain - Final 09/16/16 17:10 Sputum - Aerosol Induced Sputum Culture - Final Pseudomonas Aeruginosa 09/13/16 21:04 Blood - Peripheral Venous Blood Culture - Final NO GROWTH AFTER 5 DAYS INCUBATION 09/13/16 21:04 Blood - Peripheral Venous Blood Culture - Final NO GROWTH AFTER 5 DAYS INCUBATION 09/13/16 22:30 Urine - Urine - Catheterized Urine Culture - Final NO GROWTH OBTAINED ASSESSMENT/PLAN: Pseudomonas pneumonia --afebrile 24 hours; WBC trended to wnl --continue Zosyn (day #5) --ID following --pulm following Pulmonary venous congestion --CXR today shows improvement in vascular congestion --Lasix PRN --respiratory to assess O2 requirements to maintain SaO2 95% Herpes encephalopathy --continue acyclovir Seizure disorder --continue phenobarbital, clobazam, clonazepam Asthma --continue symbicort, albuterol nebs Functional Quadriplegia --contracted all extremities, dependent for all ADLs F/E/N Fluids/Nutrition: Promote @ 75mL/hr x 12 hours; hourly flushes to 10mL; 30mL pre-post feeding flush Electrolyes: replete as indicated DVT prophylaxis: subq heparin Dispo: continues to require inpatient care. Full Code. Visit type - Emergency Visit Emergency Visit: Yes ED Registration Date: 09/13/16 Care time: The patient presented to the Emergency Department on the above date and was hospitalized for further evaluation of their emergent condition. - New Patient This patient is new to me today: No - Critical Care Critical Care patient: No
[2016-09-23] MEDS: LACTOBACILLUS ACIDOPHILUS 1 EACH TAB (FP) GT SCH (22:31)
[2016-09-24] MEDS: PIPERACILLIN/TAZOB 3.375 GM/50 ML PRE-DOCKED IVPB SCH ×3 (01:33→17:46)
[2016-09-24] MEDS: clonazePAM 0.5 MG TABLET GT SCH ×3 (06:21→21:52)
[2016-09-24] MEDS ORDERED: PT OWN MED DRAWER 7, Y5N ONE (10:07)
[2016-09-24] MEDS: AMINO ACIDS/PROTEIN HYDROLYS 30 ML LIQUID.PKT PO SCH (10:10)
[2016-09-24] MEDS: RANITIDINE HCL 150 MG/10 ML UNIT-DOSE CUP GT SCH ×2 (10:10→21:52)
[2016-09-24] MEDS: PHENobarbital 20 MG/5 ML UNIT-DOSE CUP GT SCH ×2 (10:11→21:51)
[2016-09-24] MEDS: MULTIVIT MINERALS GT SCH (10:12)
[2016-09-24] MEDS: FERROUS GLUC GT SCH (10:12)
[2016-09-24] MEDS: BACLOFEN 10 MG TABLET (FP) GT SCH ×2 (10:12→21:52)
[2016-09-24] MEDS: FLUTICASONE PROP 0.05% 16 GM NASAL SPRAY NS SCH (10:12)
[2016-09-24] MEDS: MAGNESIUM HYDROX 2400MG/30ML ORAL SUSPENSION 30 ML CUP PO SCH (10:29)
[2016-09-24 11:02] LABS: BASOPHIL 0.9 % (0-2.0); EOSINOPHIL 1.8 % (0-4.5); MCH 33.2 pg (25.7-33.7); MCHC 33.9 g/dl (32.0-35.9); MEAN CELL VOLUME 98.1 fl (80-96); MEAN PLT VOLUME 9.7 fl (7.5-11.1); NEUTROPHILS 37.7 % (42.8-82.8); PLATELET COUNT 288 K/MM3 (134-434); RDW 14.8 % (11.9-15.9); WHITE BLOOD COUNT 7.2 K/mm3 (4.0-10.0)
[2016-09-24 11:25] LABS: ALBUMIN 3.3 g/dl (3.4-5.0); ALK PHOS 227 U/L (45-117); ANION GAP 14 (8-16); BILIRUBIN,TOTAL 0.4 mg/dL (0.2-1.0); CALCIUM 9.3 mg/dL (8.5-10.1); CO2 34 mmol/L (21-32); CREATININE 0.6 mg/dL (0.7-1.3); GLUCOSE,RANDOM 96 mg/dL (74-106); MAGNESIUM 2.4 mg/dL (1.8-2.4); SGOT/AST 103 U/L (15-37); SGPT/ALT 97 U/L (12-78); TOT PROT 8.8 g/dl (6.4-8.2)
[2016-09-24] MEDS ORDERED: POTASSIUM CHLORIDE ORAL LIQUID 20 MEQ/15 ML PO ONE (12:29)
--- NOTE | 2016-09-24 12:38 | PN ---
Physical Exam: SUBJECTIVE: Patient seen and examined at bedside. OBJECTIVE: Vital Signs Period Temp Pulse Resp BP Sys/Linares Pulse Ox Last 24 Hr 97.5 F-100.1 F 75-83 20-20 102-120/61-69 96-97 GENERAL/NEURO: The patient nonverbal at baseline. No signs of distress. LUNGS:Rales and rhonchi throughout HEART: Regular rate and rhythm, S1, S2 without murmur, rub or gallop. ABDOMEN: Soft, nontender, nondistended, normoactive bowel sounds, no guarding, no rebound; PEG in place, surrounding skin intact EXTREMITIES: 2+ pulses, warm, well-perfused, no edema. All four extremities contracted. Laboratory Results - last 24 hr 09/23/16 09/24/16 09/24/16 06:25 10:35 10:35 WBC 7.2 RBC 3.80 L Hgb 12.6 Hct 37.3 MCV 98.1 H MCHC 33.9 RDW 14.8 Plt Count 288 MPV 9.7 Neutrophils % 37.7 L Lymphocytes % 45.5 H Monocytes % 14.1 H Eosinophils % 1.8 Basophils % 0.9 ESR 60 H Sodium 139 Potassium 3.3 L Chloride 91 L Carbon Dioxide 34 H Anion Gap 14 BUN 27 H Creatinine 0.6 L Creat Clearance w eGFR > 60 Random Glucose 96 D Calcium 9.3 Magnesium 2.4 Total Bilirubin 0.4 AST 103 H D ALT 97 H D Alkaline Phosphatase 227 H Total Protein 8.8 H Albumin 3.3 L Active Medications Generic Name Dose Route Start Last Admin Trade Name Freq PRN Reason Stop Dose Admin Acetaminophen 650 mg 09/21/16 17:56 09/22/16 05:03 Tylenol Suppository - [place] 650 mg Q6H PRN Administration FEVER OR PAIN Amino Acids 30 ml 09/24/16 08:00 09/24/16 10:10 Prosource No Carb Liquid Pkt PO 30 ml Q24H JORGE Administration Baclofen 10 mg 09/14/16 10:00 09/24/16 10:12 Lioresal - GT 10 mg BID JORGE Administration Bisacodyl 10 mg 09/14/16 00:14 09/21/16 04:00 Dulcolax Suppository - RC 10 mg DAILY PRN Administration CONSTIPATION Clonazepam 0.5 mg 09/14/16 06:00 09/24/16 06:21 Klonopin - GT 0.5 mg TID JORGE Administration Fluticasone Propionate 1 - 2 spray 09/14/16 10:00 09/24/16 10:12 Flonase - NS 1 sprays DAILY JORGE Administration Lactobacillus Acidophilus 1 tab 09/14/16 22:00 09/23/16 22:31 Bacid - GT 1 tab HS JORGE Administration Magnesium Hydroxide 20 ml 09/14/16 10:00 09/24/16 10:29 Milk Of Magnesia - PO 20 ml DAILY JORGE Administration Phenobarbital 15 mg 09/14/16 10:00 09/24/16 10:11 Phenobarbital Liquid - GT 15 mg BID JORGE Administration Piperacillin Sod/Tazobactam Sod 3.375 gm 09/19/16 11:00 09/24/16 10:09 Zosyn 3.375gm Ivpb (Pre-Docked) IVPB 3.375 gm Q8H-IV JOGRE Administration Protocol Potassium Chloride 40 meq 09/24/16 12:29 Potassium Chloride Oral Liquid PO 09/24/16 12:30 ONCE ONE Ranitidine HCl 75 mg 09/14/16 10:00 09/24/16 10:10 Zantac Oral Solution - GT 75 mg BID JORGE Administration ASSESSMENT/PLAN Pseudomonas pneumonia --afebrile 48 hours; WBC wnl; satting 96% on room air --continue Zosyn (day #6) --ID following --pulm following Pulmonary venous congestion --09/23 CXR today showed improvement in vascular congestion --Lasix PRN Herpes encephalopathy --continue acyclovir Seizure disorder --continue phenobarbital, clobazam, clonazepam Asthma --continue symbicort, albuterol nebs Functional Quadriplegia --contracted all extremities, dependent for all ADLs F/E/N Fluids/Nutrition: Promote @ 75mL/hr x 12 hours; hourly flushes to 10mL; 30mL pre-post feeding flush Electrolyes: replete as indicated DVT prophylaxis: subq heparin Dispo: continues to require inpatient care. Full Code. Visit type - Emergency Visit Emergency Visit: Yes ED Registration Date: 09/13/16 Care time: The patient presented to the Emergency Department on the above date and was hospitalized for further evaluation of their emergent condition. - New Patient This patient is new to me today: No - Critical Care Critical Care patient: No
--- NOTE | 2016-09-24 14:03 | PN ---
Progress Note (short form) - Note Progress Note: no oxygen- no respiratory distress no diarrhea now afebrile Vital Signs Period Temp Pulse Resp BP Sys/Linares Pulse Ox Last 24 Hr 97.5 F-100.1 F 75-83 20-20 102-120/61-69 96-97 cor-rrr lungs decreased bs at bases abd soft,nt ext no edema CBC, BMP 09/24/16 10:35 09/24/16 10:35 Microbiology 09/21/16 20:33 Blood - Peripheral Venous Blood Culture - Preliminary NO GROWTH OBTAINED AFTER 48 HOURS, INCUBATION TO CONTINUE FOR 3 DAYS. 09/21/16 20:33 Blood - Peripheral Venous Blood Culture - Preliminary NO GROWTH OBTAINED AFTER 48 HOURS, INCUBATION TO CONTINUE FOR 3 DAYS. 09/21/16 18:13 Urine - Urine - Catheterized Urine Culture - Final NO GROWTH OBTAINED cxray improved a/p pneumonia- ?CHF leukocytosis resolved history of resistant organisms multiple developmental delays now afebrile zosyn day #5 would finish 7 days total of zosyn thanks please call back if needed
--- NOTE | 2016-09-24 15:23 | PN ---
Progress Note, Physician History of Present Illness: PULMONARY AWAKE,NAD,-TACHYPNEA-CONGESTION - Current Medication List Current Medications: Active Medications Acetaminophen (Tylenol Suppository -) 650 mg IN Q6H PRN PRN Reason: FEVER OR PAIN Last Admin: 09/22/16 05:03 Dose: 650 mg Amino Acids (Prosource No Carb Liquid Pkt) 30 ml PO Q24H [facility] Last Admin: 09/24/16 10:10 Dose: 30 ml Baclofen (Lioresal -) 10 mg GT BID JORGE Last Admin: 09/24/16 10:12 Dose: 10 mg Bisacodyl (Dulcolax Suppository -) 10 mg RC DAILY PRN PRN Reason: CONSTIPATION Last Admin: 09/21/16 04:00 Dose: 10 mg Clonazepam (Klonopin -) 0.5 mg GT TID [facility] Last Admin: 09/24/16 14:04 Dose: 0.5 mg Fluticasone Propionate (Flonase -) 1 - 2 spray NS DAILY [facility] Last Admin: 09/24/16 10:12 Dose: 1 sprays Lactobacillus Acidophilus (Bacid -) 1 tab GT HS [facility] Last Admin: 09/23/16 22:31 Dose: 1 tab Magnesium Hydroxide (Milk Of Magnesia -) 20 ml PO DAILY [facility] Last Admin: 09/24/16 10:29 Dose: 20 ml Phenobarbital (Phenobarbital Liquid -) 15 mg GT BID [facility] Last Admin: 09/24/16 10:11 Dose: 15 mg Piperacillin Sod/Tazobactam Sod (Zosyn 3.375gm Ivpb (Pre-Docked)) 3.375 gm IVPB Q8H-IV JORGE PRN Reason: Protocol Last Admin: 09/24/16 10:09 Dose: 3.375 gm Ranitidine HCl (Zantac Oral Solution -) 75 mg GT BID [facility] Last Admin: 09/24/16 10:10 Dose: 75 mg - Objective Vital Signs: Vital Signs Temperature 98.4 F 09/24/16 06:00 Pulse Rate 80 09/24/16 06:00 Respiratory Rate 20 09/24/16 06:00 Blood Pressure 108/64 09/24/16 06:00 O2 Sat by Pulse Oximetry (%) 96 09/23/16 22:30 Constitutional: Yes: Calm, Thin Eyes: Yes: WNL HENT: Yes: WNL Neck: Yes: WNL Cardiovascular: Yes: Regular Rate and Rhythm, S1, S2 Respiratory: Yes: Rhonchi (FEW RHONCHI) Gastrointestinal: Yes: Normal Bowel Sounds, Soft Extremities: Yes: Shortened Edema: No Labs: CBC, BMP 09/24/16 10:35 09/24/16 10:35 INR, PTT INR 1.15 (0.82-1.09) H 09/13/16 21:04 Assessment/Plan Problem List - Problems (1) Pneumonia Code(s): J18.9 - PNEUMONIA, UNSPECIFIED ORGANISM (2) Hypothermia Code(s): T68.XXXA - HYPOTHERMIA, INITIAL ENCOUNTER (3) Seizure Code(s): R56.9 - UNSPECIFIED CONVULSIONS (4) Asthma Code(s): J45.909 - UNSPECIFIED ASTHMA, UNCOMPLICATED (5) Epilepsy Code(s): G40.909 - EPILEPSY, UNSP, NOT INTRACTABLE, WITHOUT STATUS EPILEPTICUS (6) Profound mental retardation Code(s): F73 - PROFOUND INTELLECTUAL DISABILITIES (7) Aspiration pneumonia Code(s): J69.0 - PNEUMONITIS DUE TO INHALATION OF FOOD AND VOMIT Assessment/Plan PLAN: Lasix prn O2 a ABX per ID Aspiration precautions Inhaled bronchodilators DR VILLALTA
[2016-09-24] MEDS: LACTOBACILLUS ACIDOPHILUS 1 EACH TAB (FP) GT SCH (21:51)
[2016-09-25] MEDS: PIPERACILLIN/TAZOB 3.375 GM/50 ML PRE-DOCKED IVPB SCH ×2 (01:27→09:23)
[2016-09-25] MEDS: clonazePAM 0.5 MG TABLET GT SCH ×3 (05:24→23:02)
[2016-09-25] MEDS: AMINO ACIDS/PROTEIN HYDROLYS 30 ML LIQUID.PKT PO SCH (08:14)
[2016-09-25] MEDS: ACETAMINOPHEN 650 MG SUPP.RECT PR PRN (08:28)
[2016-09-25] MEDS ORDERED: PT OWN MED DRAWER 7, Y5N ONE ×2 (09:16→22:59)
[2016-09-25] MEDS: MAGNESIUM HYDROX 2400MG/30ML ORAL SUSPENSION 30 ML CUP PO SCH (09:20)
[2016-09-25] MEDS: MULTIVIT MINERALS GT SCH (09:23)
[2016-09-25] MEDS: FLUTICASONE PROP 0.05% 16 GM NASAL SPRAY NS SCH (09:23)
[2016-09-25] MEDS: FERROUS GLUC GT SCH (09:23)
[2016-09-25] MEDS: RANITIDINE HCL 150 MG/10 ML UNIT-DOSE CUP GT SCH ×2 (09:24→23:03)
[2016-09-25] MEDS: PHENobarbital 20 MG/5 ML UNIT-DOSE CUP GT SCH ×2 (09:24→23:03)
[2016-09-25] MEDS: BACLOFEN 10 MG TABLET (FP) GT SCH ×2 (09:24→23:03)
--- NOTE | 2016-09-25 09:48 | PN ---
Physical Exam: SUBJECTIVE: Patient seen and examined at bedside. Rigors, diaphoretic. Fever to 105.9. OBJECTIVE: Vital Signs Period Temp Pulse Resp BP Sys/Linares Pulse Ox Last 24 Hr 97 F-105.9 F 78-98 18-75 100-113/49-64 GENERAL/NEURO: The patient nonverbal at baseline. Pale, diaphoretic, rigoring. LUNGS: Rapid, shallow breathing, on NRB HEART: Tachycardic. S1, S2 without murmur, rub or gallop. ABDOMEN: Soft, nontender, nondistended, normoactive bowel sounds, no guarding, no rebound; PEG in place, surrounding skin intact EXTREMITIES: 2+ pulses, warm, well-perfused, no edema. All four extremities contracted. Laboratory Results - last 24 hr 09/23/16 09/25/16 09/25/16 06:25 10:20 10:20 WBC 16.5 H D RBC 4.02 Hgb 13.3 Hct 39.7 MCV 98.7 H MCHC 33.5 RDW 14.8 Plt Count 420 D MPV 10.2 Neutrophils % 65.8 D Lymphocytes % 24.4 D Monocytes % 8.8 Eosinophils % 0.4 Basophils % 0.6 Puncture Site ABG pH ABG pCO2 at Pt Temp ABG pO2 at Pt Temp ABG HCO3 ABG O2 Sat (Measured) ABG O2 Content ABG Base Excess Kaushal Test O2 Delivery Device Oxygen Flow Rate PEEP Sodium 139 Potassium 5.0 D Chloride 96 L Carbon Dioxide 25 D Anion Gap 18 H BUN 35 H D Creatinine 1.2 D Creat Clearance w eGFR > 60 POC Glucometer Random Glucose 118 H D Lactic Acid Calcium 10.4 H Magnesium 2.2 Total Bilirubin 0.7 D AST 172 H D ALT 171 H D Alkaline Phosphatase 289 H D Total Protein 10.2 H Albumin 4.1 D THERESA Screen Negative 09/25/16 09/25/16 09/25/16 11:08 11:50 12:30 WBC RBC Hgb Hct MCV MCHC RDW Plt Count MPV Neutrophils % Lymphocytes % Monocytes % Eosinophils % Basophils % Puncture Site Right radial ABG pH 7.44 ABG pCO2 at Pt Temp 42.8 D ABG pO2 at Pt Temp 426.0 H* ABG HCO3 28.4 H ABG O2 Sat (Measured) 100.0 H* ABG O2 Content 16.2 ABG Base Excess 4.2 H Kaushal Test Positive O2 Delivery Device Nrb Oxygen Flow Rate 100 PEEP 0.0 Sodium Potassium Chloride Carbon Dioxide Anion Gap BUN Creatinine Creat Clearance w eGFR POC Glucometer 116 Random Glucose Lactic Acid 5.713 H* Calcium Magnesium Total Bilirubin AST ALT Alkaline Phosphatase Total Protein Albumin THERESA Screen Current Medications Generic Name Dose Route Start Last Admin Trade Name Freq PRN Reason Stop Dose Admin Acetaminophen 650 mg 09/21/16 17:56 09/25/16 08:28 Tylenol Suppository - [place] 650 mg Q6H PRN Administration FEVER OR PAIN Acetaminophen 700 mg 09/25/16 12:15 09/25/16 14:25 Ofirmev Injection - IVPB 09/26/16 06:16 Not Given Q6H JORGE Amino Acids 30 ml 09/24/16 08:00 09/25/16 08:14 Prosource No Carb Liquid Pkt PO 30 ml Q24H JORGE Administration Baclofen 10 mg 09/14/16 10:00 09/25/16 09:24 Lioresal - GT 10 mg BID JORGE Administration Bisacodyl 10 mg 09/14/16 00:14 09/21/16 04:00 Dulcolax Suppository - RC 10 mg DAILY PRN Administration CONSTIPATION Cefepime HCl 1 gm 09/25/16 11:15 09/25/16 12:06 Maxipime 1gm Ivpb Pre-Docked IVPB 1 gm BID JORGE Administration Protocol Clonazepam 0.5 mg 09/14/16 06:00 09/25/16 14:28 Klonopin - GT 0.5 mg TID JORGE Administration Fluticasone Propionate 1 - 2 spray 09/14/16 10:00 09/25/16 09:23 Flonase - NS 2 sprays DAILY JORGE Administration Vancomycin HCl 250 mls @ 200 mls/hr 09/25/16 12:00 09/25/16 12:57 Vancomycin (Pre-Docked) IVPB 200 mls/hr DAILY@1200 JORGE Administration Sodium Chloride 1,000 mls @ 100 mls/hr 09/25/16 13:00 09/25/16 14:29 Normal Saline - IV 100 mls/hr ASDIR JORGE Administration Sodium Chloride 1,000 mls @ 125 mls/hr 09/25/16 12:30 Normal Saline - IV ASDIR JORGE Lactobacillus Acidophilus 1 tab 09/14/16 22:00 09/24/16 21:51 Bacid - GT 1 tab HS JORGE Administration Magnesium Hydroxide 20 ml 09/14/16 10:00 09/25/16 09:20 Milk Of Magnesia - PO 20 ml DAILY JORGE Administration Phenobarbital 15 mg 09/14/16 10:00 09/25/16 09:24 Phenobarbital Liquid - GT 15 mg BID JORGE Administration Ranitidine HCl 75 mg 09/14/16 10:00 09/25/16 09:24 Zantac Oral Solution - GT 75 mg BID JORGE Administration ASSESSMENT/PLAN 21 year-old male, [place] resident, with a PMH of profound mental retardation, herpes encephalopathy, seizure disorder, and asthma, was brought to the ED in respiratory distress. Has been treated for pseudomonas pneumonia. Today spiked fever to 105.9, WBC jumped to 16.5k. Severe sepsis of uncertain etiology --fever spike to 105.9, WBC 16.5k; lactic acid 5.7; tachycardic to 135, tachypnic to 75; BP remained stable --improved after IV Tylenol, fluid bolus, cooling blanket --repeat CXR shows no significant change in CXR, unclear if lungs are source --AST/ALT/Alk phos all trending up --d/c Zosyn (6 days treatement); start Vanc and cefepime --CT chest, abdomen, pelvis pending --repeat lactic acid at 6:00pm --ID following --pulm following Pulmonary venous congestion, improved --hold lasix Herpes encephalopathy --continue acyclovir Seizure disorder --continue phenobarbital, clobazam, clonazepam Asthma --continue symbicort, albuterol nebs Functional Quadriplegia --contracted all extremities, dependent for all ADLs F/E/N Fluids/Nutrition: stop tube feeds; NS @ 100mL/hr Electrolyes: replete as indicated DVT prophylaxis: subq heparin Dispo: continues to require inpatient care. Full Code. Visit type - Emergency Visit Emergency Visit: Yes ED Registration Date: 09/13/16 Care time: The patient presented to the Emergency Department on the above date and was hospitalized for further evaluation of their emergent condition. - New Patient This patient is new to me today: No - Critical Care Critical Care patient: Yes Total Critical Care Time (in minutes): 120 Critical Care Statement: The care of this patient involved high complexity decision making to prevent further life threatening deterioration of the patient 's condition and/or to evalute & treat vital organ system(s) failure or risk of failure.
[2016-09-25] MEDS ORDERED: ACETAMINOPHEN 1000 MG/100 ML VIAL (NON FORMULARY) IVPB ONE ×2 (10:17)
[2016-09-25] MEDS ORDERED: SODIUM CHLORIDE 1,000 ML IV STA ×2 (10:30→12:50)
--- NOTE | 2016-09-25 10:45 | PN ---
Progress Note (short form) - Note Progress Note: NAD on NC O2. Noted fever this AM -> 103. New CXR was ordered as well as STAT labs. Intake & Output 09/22/16 09/23/16 09/24/16 09/25/16 23:59 23:59 23:59 23:59 Intake Total 377 490 5991 1060 Balance 736 745 9615 1060 Last Vital Signs Temp Pulse Resp BP Pulse Ox 102 F H 78 18 100/64 96 09/25/16 08:30 09/25/16 08:00 09/25/16 08:00 09/25/16 08:00 09/23/16 22:30 Active Medications Acetaminophen (Tylenol Suppository -) 650 mg MS Q6H PRN PRN Reason: FEVER OR PAIN Last Admin: 09/25/16 08:28 Dose: 650 mg Amino Acids (Prosource No Carb Liquid Pkt) 30 ml PO Q24H [facility] Last Admin: 09/25/16 08:14 Dose: 30 ml Baclofen (Lioresal -) 10 mg GT BID [facility] Last Admin: 09/25/16 09:24 Dose: 10 mg Bisacodyl (Dulcolax Suppository -) 10 mg RC DAILY PRN PRN Reason: CONSTIPATION Last Admin: 09/21/16 04:00 Dose: 10 mg Clonazepam (Klonopin -) 0.5 mg GT TID [facility] Last Admin: 09/25/16 05:24 Dose: 0.5 mg Fluticasone Propionate (Flonase -) 1 - 2 spray NS DAILY [facility] Last Admin: 09/25/16 09:23 Dose: 2 sprays Sodium Chloride (Normal Saline -) 1,000 mls @ 1,000 mls/hr IV ASDIR STA Stop: 09/25/16 11:29 Ibuprofen (Caldolor Injection -) 800 mg IVPB ONCE ONE Stop: 09/25/16 10:33 Lactobacillus Acidophilus (Bacid -) 1 tab GT HS [facility] Last Admin: 09/24/16 21:51 Dose: 1 tab Lorazepam (Ativan Injection -) 1 mg IVPUSH ONCE PRN PRN Reason: AGITATION Stop: 09/26/16 10:32 Magnesium Hydroxide (Milk Of Magnesia -) 20 ml PO DAILY [facility] Last Admin: 09/25/16 09:20 Dose: 20 ml Phenobarbital (Phenobarbital Liquid -) 15 mg GT BID [facility] Last Admin: 09/25/16 09:24 Dose: 15 mg Piperacillin Sod/Tazobactam Sod (Zosyn 3.375gm Ivpb (Pre-Docked)) 3.375 gm IVPB Q8H-IV JORGE PRN Reason: Protocol Last Admin: 09/25/16 09:23 Dose: 3.375 gm Ranitidine HCl (Zantac Oral Solution -) 75 mg GT BID [facility] Last Admin: 09/25/16 09:24 Dose: 75 mg Constitutional: Yes: No Distress Eyes: Yes: Conjunctiva Clear HENT: Yes: Atraumatic Neck: Yes: Supple, Trachea Midline Cardiovascular: Yes: Tachycardia Respiratory: Yes: Cough, On Nasal O2, Rales, Rhonchi No: Accessory Muscle Use, Stridor, Wheezes ...Inspection: Yes: Trachea Midline. No: Use of Accessory Muscles ...Clubbing: No Gastrointestinal: Yes: Normal Bowel Sounds, Soft Musculoskeletal: Yes: Joint Stiffness Extremities: Yes: Shortened Edema: No Peripheral Pulses WNL: Yes Neurological: Yes: Pre-Existing Deficit Labs: Laboratory Results - last 24 hr 09/23/16 09/24/16 09/24/16 06:25 10:35 10:35 WBC 7.2 RBC 3.80 L Hgb 12.6 Hct 37.3 MCV 98.1 H MCHC 33.9 RDW 14.8 Plt Count 288 MPV 9.7 Neutrophils % 37.7 L Lymphocytes % 45.5 H Monocytes % 14.1 H Eosinophils % 1.8 Basophils % 0.9 Sodium 139 Potassium 3.3 L Chloride 91 L Carbon Dioxide 34 H Anion Gap 14 BUN 27 H Creatinine 0.6 L Creat Clearance w eGFR > 60 Random Glucose 96 D Calcium 9.3 Magnesium 2.4 Total Bilirubin 0.4 AST 103 H D ALT 97 H D Alkaline Phosphatase 227 H Total Protein 8.8 H Albumin 3.3 L THERESA Screen Negative Problem List - Problems (1) Pneumonia Code(s): J18.9 - PNEUMONIA, UNSPECIFIED ORGANISM (2) Hypothermia Code(s): T68.XXXA - HYPOTHERMIA, INITIAL ENCOUNTER (3) Seizure Code(s): R56.9 - UNSPECIFIED CONVULSIONS (4) Asthma Code(s): J45.909 - UNSPECIFIED ASTHMA, UNCOMPLICATED (5) Epilepsy Code(s): G40.909 - EPILEPSY, UNSP, NOT INTRACTABLE, WITHOUT STATUS EPILEPTICUS (6) Profound mental retardation Code(s): F73 - PROFOUND INTELLECTUAL DISABILITIES (7) Aspiration pneumonia Code(s): J69.0 - PNEUMONITIS DUE TO INHALATION OF FOOD AND VOMIT Assessment/Plan Will follow CXR Labs are pending Daily Assessment for Lasix O2 as needed ABX per ID Aspiration precautions BD TX Dr Price Problem List - Problems (1) Pneumonia Code(s): J18.9 - PNEUMONIA, UNSPECIFIED ORGANISM (2) Hypothermia Code(s): T68.XXXA - HYPOTHERMIA, INITIAL ENCOUNTER (3) Seizure Code(s): R56.9 - UNSPECIFIED CONVULSIONS (4) Asthma Code(s): J45.909 - UNSPECIFIED ASTHMA, UNCOMPLICATED (5) Epilepsy Code(s): G40.909 - EPILEPSY, UNSP, NOT INTRACTABLE, WITHOUT STATUS EPILEPTICUS (6) Profound mental retardation Code(s): F73 - PROFOUND INTELLECTUAL DISABILITIES (7) Aspiration pneumonia Code(s): J69.0 - PNEUMONITIS DUE TO INHALATION OF FOOD AND VOMIT
[2016-09-25] MEDS ORDERED: IBUPROFEN 800 MG/8 ML IJ IVPB ONE (11:00)
--- NOTE | 2016-09-25 11:09 | PN ---
Progress Note, Physician History of Present Illness: Spiked high grade temp Not verbally responsive Breathing non-labored tachycardic - Current Medication List Current Medications: Active Medications Acetaminophen (Tylenol Suppository -) 650 mg MS Q6H PRN PRN Reason: FEVER OR PAIN Last Admin: 09/25/16 08:28 Dose: 650 mg Amino Acids (Prosource No Carb Liquid Pkt) 30 ml PO Q24H [facility] Last Admin: 09/25/16 08:14 Dose: 30 ml Baclofen (Lioresal -) 10 mg GT BID [facility] Last Admin: 09/25/16 09:24 Dose: 10 mg Bisacodyl (Dulcolax Suppository -) 10 mg RC DAILY PRN PRN Reason: CONSTIPATION Last Admin: 09/21/16 04:00 Dose: 10 mg Clonazepam (Klonopin -) 0.5 mg GT TID [facility] Last Admin: 09/25/16 05:24 Dose: 0.5 mg Fluticasone Propionate (Flonase -) 1 - 2 spray NS DAILY [facility] Last Admin: 09/25/16 09:23 Dose: 2 sprays Sodium Chloride (Normal Saline -) 1,000 mls @ 1,000 mls/hr IV ASDIR STA Stop: 09/25/16 11:29 Lactobacillus Acidophilus (Bacid -) 1 tab GT HS [facility] Last Admin: 09/24/16 21:51 Dose: 1 tab Lorazepam (Ativan Injection -) 1 mg IVPUSH ONCE ONE Stop: 09/25/16 11:16 Last Admin: 09/25/16 11:01 Dose: 1 mg Lorazepam (Ativan Injection -) 2 mg IVPUSH ONCE ONE Stop: 09/25/16 11:16 Magnesium Hydroxide (Milk Of Magnesia -) 20 ml PO DAILY [facility] Last Admin: 09/25/16 09:20 Dose: 20 ml Phenobarbital (Phenobarbital Liquid -) 15 mg GT BID [facility] Last Admin: 09/25/16 09:24 Dose: 15 mg Ranitidine HCl (Zantac Oral Solution -) 75 mg GT BID [facility] Last Admin: 09/25/16 09:24 Dose: 75 mg - Objective Vital Signs: Vital Signs Temperature 102 F H 09/25/16 08:30 Pulse Rate 78 09/25/16 08:00 Respiratory Rate 18 09/25/16 08:00 Blood Pressure 100/64 09/25/16 08:00 O2 Sat by Pulse Oximetry (%) 96 09/23/16 22:30 Constitutional: Yes: No Distress, Cachectic Cardiovascular: Yes: Regular Rate and Rhythm, Tachycardia, S1, S2 Respiratory: Yes: Diminished Gastrointestinal: Yes: Normal Bowel Sounds, Soft, Other (+ GT). No: Tenderness Edema: No Integumentary: Yes: Other (skin intact) Labs: INR, PTT INR 1.15 (0.82-1.09) H 09/13/16 21:04 Assessment/Plan High grade temp ? source Repeat cultures, CXR D/C zosyn Empiric vanco/ cefepime
[2016-09-25 11:10] LABS: BASOPHIL 0.6 % (0-2.0); EOSINOPHIL 0.4 % (0-4.5); MCH 33.1 pg (25.7-33.7); MCHC 33.5 g/dl (32.0-35.9); MEAN CELL VOLUME 98.7 fl (80-96); MEAN PLT VOLUME 10.2 fl (7.5-11.1); NEUTROPHILS 65.8 % (42.8-82.8); PLATELET COUNT 420 K/MM3 (134-434); RDW 14.8 % (11.9-15.9); WHITE BLOOD COUNT 16.5 K/mm3 (4.0-10.0)
[2016-09-25] MEDS ORDERED: LORAZEPAM CARPU-JECT 2 MG/ML DISP.SYRIN IVPUSH ONE ×2 (11:15)
[2016-09-25 11:22] LABS: ALBUMIN 4.1 g/dl (3.4-5.0); ANION GAP 18 (8-16); BILIRUBIN,TOTAL 0.7 mg/dL (0.2-1.0); CALCIUM 10.4 mg/dL (8.5-10.1); CO2 25 mmol/L (21-32); CREATININE 1.2 mg/dL (0.7-1.3); GLUCOSE,RANDOM 118 mg/dL (74-106); MAGNESIUM 2.2 mg/dL (1.8-2.4); SGOT/AST 172 U/L (15-37); SGPT/ALT 171 U/L (12-78); TOT PROT 10.2 g/dl (6.4-8.2)
[2016-09-25 11:23] LABS: ALK PHOS 289 U/L (45-117)
[2016-09-25] MEDS: CEFEPIME 1 GM/100 ML BAG PRE-DOCKED IVPB SCH ×2 (12:06→23:45)
[2016-09-25 12:40] LABS: ARTERIAL BLOOD GAS BASE EXCESS 4.2 meq/l (-2-2); ARTERIAL BLOOD GAS HCO3 28.4 meq/L (22-26)
[2016-09-25 12:42] LABS: ALLENS TEST POSITIVE; ART PUNCT SITE RIGHT RADIAL; ARTERIAL BLOOD GAS pH 7.44 (7.35-7.45); LPM/O2% 100; PT. ON O2? YES; TYPE OF O2 NRB
[2016-09-25] MEDS: VANCOMYCIN 1 GRAM (PRE-DOCKED) 250 ML IVPB SCH (12:57)
--- NOTE | 2016-09-25 13:47 | EKG ---
Test Reason : Blood Pressure : / mmHG Vent. Rate : 112 BPM Atrial Rate : 112 BPM P-R Int : 126 ms QRS Dur : 090 ms QT Int : 318 ms P-R-T Axes : 065 124 039 degrees QTc Int : 434 ms POOR DATA QUALITY, INTERPRETATION MAY BE ADVERSELY AFFECTED SINUS TACHYCARDIA RIGHT AXIS DEVIATION INFERIOR-POSTERIOR INFARCT (CITED ON OR BEFORE 26-JUN-2016) ABNORMAL ECG WHEN COMPARED WITH ECG OF 13-SEP-2016 20:21, VENT. RATE HAS INCREASED BY 42 BPM QRS DURATION HAS DECREASED Confirmed by CLEVE WALDROP MD ([id number]) on 09/25/2016 1:47:18 PM Referred By: Marija SANCHEZ Confirmed By:CLEVE WALDROP MD
--- NOTE | 2016-09-25 14:08 | PROC ---
Addendum entered and electronically signed by Prakash Harrison PA 09/25/16 21:26: Central Line Post Procedure - Status Post Procedure No Pneumothorax. Line in good position, confirmed by chest x-ray. Original Note: Central Line Insertion - Procedure Note TIME OUT performed prior to this procedure with verbal confirmation of correct patient identity, correct side, agreement of the procedure, correct patient position, availability of necessary equipment. The consent obtained via telephone from his mother, Cathy Lanier. Form is complete and accurate. Risk of possible infection, bleeding and pneumothorax have been discussed with the mother/HCP. Safety precautions based on patient history or medication use has been addressed. Indication: CVP Monitoring Consent on Chart: Yes Central Line: Triple Lumen Catheter Area prepped with Chlorhexidine solution then draped using sterile barrier protection. Anesthesia: Lidocaine 1% Technique used: Seldinger Ultrasound Guided Assistance: Yes Site: Right Internal Jugular Dark venous non-pulsatile flow noted from hub of needle. The catheter was introduced. Guide wire removed intact. Each port aspirated then flushed with sterile normal saline and capped. Line secured to skin with silk suture. Biopatch placed around base of line. Sterile occlusive dressing applied. No complications. Patient tolerated the procedure well. STAT chest xray ordered to confirm position and rule out pneumothorax
[2016-09-25] MEDS: ACETAMINOPHEN 1000 MG/100 ML VIAL (NON FORMULARY) IVPB SCH ×2 (14:25→18:25)
[2016-09-25] MEDS: SODIUM CHLORIDE 1,000 ML IV SCH (14:29)
--- NOTE | 2016-09-25 19:15 | HOSP ---
Subjective - Review of Symptoms Events since last encounter: called by learning technologist to evaluate pt as IV contrast infiltrated in R fore arm. on exam, pt has MR, calm. BP 97/36, HR 51. R forearm with IV line, and edema , no erythema , and small green bruis on medial aspect . 1 cm. DP 2+ . Recs: apply ice, arm elevation . neuro vascular exam. primary team notified Physical Examination Vital Signs: Vital Signs Temperature 98.7 F 09/25/16 14:23 Pulse Rate 98 H 09/25/16 11:52 Respiratory Rate 18 09/25/16 08:00 Blood Pressure 113/60 09/25/16 11:52 O2 Sat by Pulse Oximetry (%) 97 09/25/16 15:00 Labs: CBC, BMP 09/25/16 10:20 09/25/16 10:20
[2016-09-25] MEDS: LACTOBACILLUS ACIDOPHILUS 1 EACH TAB (FP) GT SCH (23:02)
[2016-09-26] MEDS: ACETAMINOPHEN 1000 MG/100 ML VIAL (NON FORMULARY) IVPB SCH ×2 (00:20→06:30)
--- NOTE | 2016-09-26 01:01 | PN ---
Progress Note (short form) - Note Progress Note: Notified that RIJ central line in need of adjustment as the tip was in the Right atrium. Vital Signs Temperature 97.8 F 09/25/16 19:30 Pulse Rate 98 H 09/25/16 11:52 Respiratory Rate 16 09/25/16 19:03 Blood Pressure 110/60 09/25/16 19:03 O2 Sat by Pulse Oximetry (%) 97 09/25/16 15:00 Physical Exam Alert, nonverbal, afebrile. HEENT: Right IJ CVS: RRR, no arrythmias reported. A/P Central line adjusted 4.5 cm will repeat cxr to confirm line placement. Visit type - Emergency Visit Emergency Visit: Yes ED Registration Date: 09/13/16 Care time: The patient presented to the Emergency Department on the above date and was hospitalized for further evaluation of their emergent condition. - New Patient This patient is new to me today: Yes Date on this admission: 10/08/16 - Critical Care Critical Care patient: No Total Critical Care Time (in minutes): 0 - Discharge Referral Referred to [facility] Med P.C.: No
[2016-09-26 05:41] LABS: BASOPHIL 0.8 % (0-2.0); EOSINOPHIL 0.5 % (0-4.5); MCHC 33.7 g/dl (32.0-35.9); MEAN CELL VOLUME 97.9 fl (80-96); MEAN PLT VOLUME 9.8 fl (7.5-11.1); NEUTROPHILS 42.5 % (42.8-82.8); PLATELET COUNT 282 K/MM3 (134-434); RDW 15.1 % (11.9-15.9); WHITE BLOOD COUNT 8.5 K/mm3 (4.0-10.0)
[2016-09-26 06:02] LABS: ALBUMIN 3.1 g/dl (3.4-5.0); ALK PHOS 179 U/L (45-117); ANION GAP 9 (8-16); BILIRUBIN,TOTAL 0.4 mg/dL (0.2-1.0); CALCIUM 8.4 mg/dL (8.5-10.1); CO2 31 mmol/L (21-32); COCKROFT - GAULT 155.28; CREATININE 0.5 mg/dL (0.7-1.3); GLUCOSE,RANDOM 84 mg/dL (74-106); MAGNESIUM 2.2 mg/dL (1.8-2.4); PHOSPHOROUS 2.8 mg/dL (2.5-4.9); SGOT/AST 291 U/L (15-37); SGPT/ALT 269 U/L (12-78); TOT PROT 7.6 g/dl (6.4-8.2)
[2016-09-26] MEDS: clonazePAM 0.5 MG TABLET GT SCH ×3 (06:19→21:11)
[2016-09-26] MEDS ORDERED: PT OWN MED DRAWER 7, Y5N ONE ×3 (06:34→21:10)
[2016-09-26] MEDS: AMINO ACIDS/PROTEIN HYDROLYS 30 ML LIQUID.PKT PO SCH (08:23)
[2016-09-26] MEDS: MULTIVIT MINERALS GT SCH (09:05)
[2016-09-26] MEDS: FERROUS GLUC GT SCH (09:05)
[2016-09-26] MEDS: CEFEPIME 1 GM/100 ML BAG PRE-DOCKED IVPB SCH ×2 (09:06→21:11)
[2016-09-26] MEDS: MAGNESIUM HYDROX 2400MG/30ML ORAL SUSPENSION 30 ML CUP PO SCH (09:06)
[2016-09-26] MEDS: BACLOFEN 10 MG TABLET (FP) GT SCH ×2 (09:06→21:11)
[2016-09-26] MEDS: PHENobarbital 20 MG/5 ML UNIT-DOSE CUP GT SCH ×2 (09:06→21:11)
[2016-09-26] MEDS: FLUTICASONE PROP 0.05% 16 GM NASAL SPRAY NS SCH (09:06)
[2016-09-26] MEDS: RANITIDINE HCL 150 MG/10 ML UNIT-DOSE CUP GT SCH ×2 (09:07→21:11)
[2016-09-26] MEDS: SODIUM CHLORIDE 1,000 ML IV SCH ×2 (09:07→23:26)
[2016-09-26] MEDS: VANCOMYCIN 1 GRAM (PRE-DOCKED) 250 ML IVPB SCH (11:53)
--- NOTE | 2016-09-26 13:29 | PN ---
Progress Note (short form) - Note Progress Note: looks quite comfortable NAD ct scans- fecal impaction only central line placed +BM yesterday Vital Signs Period Temp Pulse Resp BP Sys/Linares Pulse Ox Last 24 Hr 97.8 F-98.7 F 60-70 16-20 90-110/45-60 97-97 cor-rrr lungs clear abd soft,nt +GT ext no edema CBC, BMP 09/26/16 05:00 09/26/16 05:00 Microbiology 09/25/16 10:35 Blood - Peripheral Venous Blood Culture - Preliminary NO GROWTH OBTAINED AFTER 24 HOURS, INCUBATION TO CONTINUE FOR 4 DAYS. 09/21/16 20:33 Blood - Peripheral Venous Blood Culture - Preliminary NO GROWTH OBTAINED AFTER 96 HOURS, INCUBATION TO CONTINUE FOR 1 DAYS. 09/21/16 20:33 Blood - Peripheral Venous Blood Culture - Preliminary NO GROWTH OBTAINED AFTER 96 HOURS, INCUBATION TO CONTINUE FOR 1 DAYS. a/p recurrent fever- on vanco/cefepime, f/u cultures, no clear source noted, will f/ u multiple developmental delays
--- NOTE | 2016-09-26 14:23 | PN ---
Physical Exam: SUBJECTIVE: Patient seen and examined at bedside. Appears much more comfortable. Vocalizes to calling his name. OBJECTIVE: Vital Signs Period Temp Pulse Resp BP Sys/Linares Pulse Ox Last 24 Hr 97.8 F-98.7 F 60-70 16-20 90-110/45-60 97-97 GENERAL/NEURO: The patient nonverbal at baseline. Dramatic improvement from yesterday. Calm, vocalizing, very comfortable. LUNGS: CTA. Breathing regular, unlabored. HEART: RRR. S1, S2 without murmur, rub or gallop. ABDOMEN: Soft, nontender, nondistended, normoactive bowel sounds, no guarding, no rebound; PEG in place, surrounding skin intact; tube feeds off : condom cath, no urine output EXTREMITIES: 2+ pulses, warm, well-perfused, no edema. All four extremities contracted. Laboratory Results - last 24 hr 09/25/16 09/26/16 09/26/16 17:23 05:00 05:00 WBC 8.5 D RBC 3.07 L D Hgb 10.1 L D Hct 30.1 L D MCV 97.9 H MCHC 33.7 RDW 15.1 Plt Count 282 D MPV 9.8 Neutrophils % 42.5 L D Lymphocytes % 46.4 H D Monocytes % 9.8 Eosinophils % 0.5 Basophils % 0.8 Sodium 140 Potassium 3.1 L D Chloride 100 Carbon Dioxide 31 D Anion Gap 9 BUN 25 H D Creatinine 0.5 L D Creat Clearance w eGFR > 60 Random Glucose 84 D Lactic Acid Calcium 8.4 L Phosphorus 2.8 D Magnesium 2.2 Total Bilirubin 0.4 D AST 291 H D ALT 269 H D Alkaline Phosphatase 179 H D Total Protein 7.6 D Albumin 3.1 L D Lipase 172 09/26/16 05:00 WBC RBC Hgb Hct MCV MCHC RDW Plt Count MPV Neutrophils % Lymphocytes % Monocytes % Eosinophils % Basophils % Sodium Potassium Chloride Carbon Dioxide Anion Gap BUN Creatinine Creat Clearance w eGFR Random Glucose Lactic Acid 0.721 Calcium Phosphorus Magnesium Total Bilirubin AST ALT Alkaline Phosphatase Total Protein Albumin Lipase Active Medications Generic Name Dose Route Start Last Admin Trade Name Freq PRN Reason Stop Dose Admin Acetaminophen 650 mg 09/21/16 17:56 09/25/16 08:28 Tylenol Suppository - NE 650 mg Q6H PRN Administration FEVER OR PAIN Amino Acids 30 ml 09/24/16 08:00 09/26/16 08:23 Prosource No Carb Liquid Pkt PO 30 ml Q24H [facility]OR[facility] Administration Baclofen 10 mg 09/14/16 10:00 09/26/16 09:06 Lioresal - GT 10 mg BID [facility] Administration Bisacodyl 10 mg 09/14/16 00:14 09/21/16 04:00 Dulcolax Suppository - RC 10 mg DAILY PRN Administration CONSTIPATION Cefepime HCl 1 gm 09/25/16 11:15 09/26/16 09:06 Maxipime 1gm Ivpb Pre-Docked IVPB 1 gm BID [facility]OR[facility] Administration Protocol Clonazepam 0.5 mg 09/14/16 06:00 09/26/16 06:19 Klonopin - GT 0.5 mg TID [facility] Administration Fluticasone Propionate 1 - 2 spray 09/14/16 10:00 09/26/16 09:06 Flonase - NS 2 sprays DAILY [facility] Administration Vancomycin HCl 250 mls @ 200 mls/hr 09/25/16 12:00 09/26/16 11:53 Vancomycin (Pre-Docked) IVPB 200 mls/hr DAILY@1200 [facility] Administration Sodium Chloride 1,000 mls @ 100 mls/hr 09/25/16 13:00 09/26/16 09:07 Normal Saline - IV 100 mls/hr ASDIR JORGE Administration Sodium Chloride 1,000 mls @ 125 mls/hr 09/25/16 12:30 Normal Saline - IV ASDIR JORGE Lactobacillus Acidophilus 1 tab 09/14/16 22:00 09/25/16 23:02 Bacid - GT 1 tab HS [facility] Administration Magnesium Hydroxide 20 ml 09/14/16 10:00 09/26/16 09:06 Milk Of Magnesia - PO 20 ml DAILY [facility] Administration Phenobarbital 15 mg 09/14/16 10:00 09/26/16 09:06 Phenobarbital Liquid - GT 15 mg BID [facility] Administration Ranitidine HCl 75 mg 09/14/16 10:00 09/26/16 09:07 Zantac Oral Solution - GT 75 mg BID [facility] Administration ASSESSMENT/PLAN 21 year-old male, [place] resident, with a PMH of profound mental retardation, herpes encephalopathy, seizure disorder, and asthma, was brought to the ED in respiratory distress. Has been treated for pseudomonas pneumonia. Today spiked fever to 105.9, WBC jumped to 16.5k. Severe sepsis of uncertain etiology on 09/25/16, now resolved --yesterday fever spike to 105.9, WBC 16.5k; lactic acid 5.7; tachycardic to 135, tachypnic to 75; BP remained stable --today afebrile, WBC wnl, lactic acid wnl, tachycardia and tachynpnea resolved --had been on Zosyn x 6 days for pseudomonas pneumonia; Zosyn stopped and was started on cefepime and vanco by ID; will continue --CT of chest, abdomen, and pelvis were unremarkable for source of infection --of note, AST and ALT trending up since admission, will obtain US liver --will get neuro consult to consider central cause for fever Pulmonary venous congestion, resolved --CT chest shows improvement Herpes encephalopathy --continue acyclovir Seizure disorder --continue phenobarbital, clobazam, clonazepam Asthma --continue symbicort, albuterol nebs Functional Quadriplegia --contracted all extremities, dependent for all ADLs F/E/N Fluids/Nutrition: stop tube feeds; NS @ 100mL/hr Electrolyes: replete as indicated DVT prophylaxis: subq heparin Dispo: continues to require inpatient care. Full Code. Visit type - Emergency Visit Emergency Visit: Yes ED Registration Date: 09/13/16 Care time: The patient presented to the Emergency Department on the above date and was hospitalized for further evaluation of their emergent condition. - New Patient This patient is new to me today: No - Critical Care Critical Care patient: No
[2016-09-26 15:26] LABS: URINE APPEARANCE CLEAR; URINE BILIRUBIN NEGATIVE (NEGATIVE); URINE BLOOD NEGATIVE (NEGATIVE); URINE COLOR DKYELLOW; URINE GLUCOSE (UA) NEGATIVE (NEGATIVE); URINE KETONE NEGATIVE (NEGATIVE); URINE LEUK ESTERASE NEGATIVE (NEGATIVE); URINE NITRITE NEGATIVE (NEGATIVE); URINE UROBILINOGEN NEGATIVE E.U./dl (0.2-1.0)
[2016-09-26 15:43] LABS: URINE PROTEIN 1+ (NEGATIVE)
[2016-09-26 15:57] LABS: URINE RBC 4 /hpf (0-3); URINE WBC 2 /hpf (3-5)
--- NOTE | 2016-09-26 16:40 | PN ---
Progress Note, Physician History of Present Illness: pulmonary awake,no distress,-congestion,-sob - Current Medication List Current Medications: Active Medications Acetaminophen (Tylenol Suppository -) 650 mg [place] Q6H PRN PRN Reason: FEVER OR PAIN Last Admin: 09/25/16 08:28 Dose: 650 mg Amino Acids (Prosource No Carb Liquid Pkt) 30 ml PO Q24H [facility] Last Admin: 09/26/16 08:23 Dose: 30 ml Baclofen (Lioresal -) 10 mg GT BID [facility] Last Admin: 09/26/16 09:06 Dose: 10 mg Bisacodyl (Dulcolax Suppository -) 10 mg RC DAILY PRN PRN Reason: CONSTIPATION Last Admin: 09/21/16 04:00 Dose: 10 mg Cefepime HCl (Maxipime 1gm Ivpb Pre-Docked) 1 gm IVPB BID [facility] PRN Reason: Protocol Last Admin: 09/26/16 09:06 Dose: 1 gm Clonazepam (Klonopin -) 0.5 mg GT TID [facility] Last Admin: 09/26/16 14:24 Dose: 0.5 mg Fluticasone Propionate (Flonase -) 1 - 2 spray NS DAILY [facility] Last Admin: 09/26/16 09:06 Dose: 2 sprays Vancomycin HCl (Vancomycin (Pre-Docked)) 250 mls @ 200 mls/hr IVPB DAILY@1200 [facility] Last Admin: 09/26/16 11:53 Dose: 200 mls/hr Sodium Chloride (Normal Saline -) 1,000 mls @ 100 mls/hr IV ASDIR [facility] Last Admin: 09/26/16 09:07 Dose: 100 mls/hr Sodium Chloride (Normal Saline -) 1,000 mls @ 125 mls/hr IV ASDIR [facility] Lactobacillus Acidophilus (Bacid -) 1 tab GT HS [facility] Last Admin: 09/25/16 23:02 Dose: 1 tab Magnesium Hydroxide (Milk Of Magnesia -) 20 ml PO DAILY [facility] Last Admin: 09/26/16 09:06 Dose: 20 ml Phenobarbital (Phenobarbital Liquid -) 15 mg GT BID [facility] Last Admin: 09/26/16 09:06 Dose: 15 mg Ranitidine HCl (Zantac Oral Solution -) 75 mg GT BID [facility] Last Admin: 09/26/16 09:07 Dose: 75 mg - Objective Vital Signs: Vital Signs Temperature 98.5 F 09/26/16 15:06 Pulse Rate 74 09/26/16 15:06 Respiratory Rate 18 09/26/16 08:00 Blood Pressure 89/51 09/26/16 15:06 O2 Sat by Pulse Oximetry (%) 96 09/26/16 09:00 Constitutional: Yes: Calm, Thin Eyes: Yes: WNL HENT: Yes: WNL Neck: Yes: WNL Cardiovascular: Yes: Regular Rate and Rhythm, S1, S2 Respiratory: Yes: CTA Bilaterally Gastrointestinal: Yes: Normal Bowel Sounds, Soft Extremities: Yes: Shortened Labs: CBC, BMP 09/26/16 05:00 09/26/16 05:00 INR, PTT INR 1.15 (0.82-1.09) H 09/13/16 21:04 - ....Imaging Cat Scan: Report Reviewed, Image Reviewed (improved ground glass infiltrates) Assessment/Plan Problem List - Problems (1) Pneumonia Code(s): J18.9 - PNEUMONIA, UNSPECIFIED ORGANISM (2) Hypothermia Code(s): T68.XXXA - HYPOTHERMIA, INITIAL ENCOUNTER (3) Seizure Code(s): R56.9 - UNSPECIFIED CONVULSIONS (4) Asthma Code(s): J45.909 - UNSPECIFIED ASTHMA, UNCOMPLICATED (5) Epilepsy Code(s): G40.909 - EPILEPSY, UNSP, NOT INTRACTABLE, WITHOUT STATUS EPILEPTICUS (6) Profound mental retardation Code(s): F73 - PROFOUND INTELLECTUAL DISABILITIES (7) Aspiration pneumonia Code(s): J69.0 - PNEUMONITIS DUE TO INHALATION OF FOOD AND VOMIT Assessment/Plan PLAN: Lasix prn O2 a ABX per ID Aspiration precautions Inhaled bronchodilators DR VILLALTA
--- NOTE | 2016-09-26 17:00 | CON.NEURO ---
Consult - Alcohol/Substance Use Hx Alcohol Use: No - Smoking History Smoking history: Never smoked Have you smoked in the past 12 months: No Aproximately how many cigarettes per day: 0 Home Medications - Allergies Allergies/Adverse Reactions: Allergies Allergy/AdvReac Type Severity Reaction Status Date / Time No Known Allergies Allergy Verified 09/13/16 20:23 - Home Medications Home Medications: Ambulatory Orders Acyclovir 200 mg PO BID 06/26/16 Albuterol 0.083% Nebulizer Meron [Ventolin 0.083% Nebulizer Soln -] 1 neb NEB QID 06/26/16 Baclofen 10 mg PO BID 06/26/16 Benzoyl Peroxide 5% Gel - 1 applic TP DAILY 06/26/16 Bisacodyl [Biscolax] 10 mg RC DAILY 06/26/16 Budesonide/Formeterol Fumarate [SYMBICORT 160/4.5mcg -] 1 inh PO BID 06/26/16 Clobazam [Onfi -] 10 mg PO DAILY 06/26/16 Clonazepam [KlonoPIN] 0.5 mg GT TID 06/26/16 Diazepam [Diastat Acudial] 10 mg RC DAILY 06/26/16 Fluticasone Prop 0.05% Nasal [Flonase -] 1 - 2 spray NS DAILY 06/26/16 Fructooligosaccharides/Polydex [Fiber-Stat 15 gm/30 ml Liquid] 15 gm PO DAILY Hydrocolloid Dressing [Duoderm] 1 each TP HS PRN 06/26/16 Ipratropium/Albuterol Sulfate [Iprat-Albut 0.5-3(2.5) mg/3 ml] 3 ml IH Q6H 06/26 Lactobacillus Acidophilus [Acidophilus] 1 each PO HS 06/26/16 Magnesium Hydroxide [Milk of Magnesia] 20 ml PO DAILY 06/26/16 Multivitamin [Poly-Vitamin] 1 each GT DAILY 06/26/16 Phenobarbital 16.2 mg PO BID 06/26/16 Ranitidine HCl [Zantac 75] 75 mg PO BID 06/26/16 Physical Exam-Neuro Vital Signs: Vital Signs Temperature 98.5 F 09/26/16 15:06 Pulse Rate 74 09/26/16 15:06 Respiratory Rate 18 09/26/16 08:00 Blood Pressure 89/51 09/26/16 15:06 O2 Sat by Pulse Oximetry (%) 96 09/26/16 09:00 Labs: CBC, BMP 09/26/16 05:00 09/26/16 05:00 INR, PTT INR 1.15 (0.82-1.09) H 09/13/16 21:04 NIH Stroke Scale - Total Score NIH Stroke Scale Score: 0 Assessment/Plan 21 year old male resident of [facility] Profound mental retardation, Epilepsy, Asthma, Hypothermia, Herpes encephalitis, who was brought in to the ER this morning by EMS because of respiratory distress and hypoxia with oxygen saturation in 70's. Upon arrival to the ED the patient was hypotensive, tachycardia, tachypneic, Hypoxic and hypothermic. After IV fluid, O2 therapy, suctioning, the patient was stabilized with normal vitals. Pt was recently (06/2016) admitted in ICU at [facility] for respiratory failure, sepsis and pneumonia with Citrobacter where he was intubated, extubated and reintubated. Pt is non verbal, history is taken from chart, home health attendant from [place] and ED nursing staff. ER course was notable for: (1) Zosyn IV 3.375gm (2) IV fluid NS 1 liter (3) CXR Recent Travel: None PAST MEDICAL HISTORY: Profound mental retardation Epilepsy Asthma Hypothermia Herpes encephalitis PAST SURGICAL HISTORY: PEg tube Social History: Smoking:none Alcohol:none Drugs: none Family History: non- contributory Allergies No Known Allergies Allergy (Verified 09/13/16 20:23)
--- NOTE | 2016-09-26 17:20 | PN ---
Progress Note (short form) - Note Progress Note: cc high grade fever for possible central origin HPI 21 year old male hsitory of mental retardation, epilepsy and herpetic encephalitis. He is mostly bed bound and has very high grade fever of 106. There has not been any new neurological insult today fever is controlled and he is on antibiotic ( vanco and cefepime) No seizures PMH,SH,ROS,MEDICATIO reviwed in chart Neurological Examination Alert and opens eye spontaneously and there is contractures in both upper and lower extremity no facial asymmetry, and there is bilateral wrist drop and flexion deformity in lower extremity no neck stiffness, afebrile today Assessment-- Unlikely to be fever of central in origin. So far he has reponded to antibiotic and work up in progress. Usually there is recent insult to hypothalamus and fever goes on for days or weeks before central origin is considered in diagnosis Plan continue current level of care no further recommendation from neurological point of view call us again if any concern chad washington md
[2016-09-26] MEDS: POTASSIUM CHLORIDE ORAL LIQUID 20 MEQ/15 ML PO SCH ×2 (17:55→23:26)
[2016-09-26 20:52] LABS: BASOPHIL 0.5 % (0-2.0); EOSINOPHIL 0.4 % (0-4.5); MCH 32.9 pg (25.7-33.7); MCHC 33.5 g/dl (32.0-35.9); MEAN PLT VOLUME 10.1 fl (7.5-11.1); NEUTROPHILS 53.7 % (42.8-82.8); PLATELET COUNT 310 K/MM3 (134-434); WHITE BLOOD COUNT 12.7 K/mm3 (4.0-10.0)
[2016-09-26] MEDS: LACTOBACILLUS ACIDOPHILUS 1 EACH TAB (FP) GT SCH (21:11)
[2016-09-26 21:21] LABS: ALBUMIN 2.9 g/dl (3.4-5.0); ANION GAP 9 (8-16); BILIRUBIN,TOTAL 0.3 mg/dL (0.2-1.0); CALCIUM 8.4 mg/dL (8.5-10.1); CO2 28 mmol/L (21-32); CREATININE 0.6 mg/dL (0.7-1.3); GLUCOSE,RANDOM 83 mg/dL (74-106); MAGNESIUM 2.1 mg/dL (1.8-2.4); TOT PROT 7.1 g/dl (6.4-8.2)
[2016-09-26 21:22] LABS: ALK PHOS 156 U/L (45-117)
[2016-09-26 21:25] LABS: SGOT/AST 520 U/L (15-37); SGPT/ALT 579 U/L (12-78)
[2016-09-27] MEDS: ACETAMINOPHEN 650 MG SUPP.RECT PR PRN ×2 (00:46→22:57)
[2016-09-27] MEDS: AMINO ACIDS/PROTEIN HYDROLYS 30 ML LIQUID.PKT PO SCH ×2 (03:50→10:35)
[2016-09-27] MEDS: SODIUM CHLORIDE 1,000 ML IV SCH ×4 (05:26→20:10)
[2016-09-27] MEDS: clonazePAM 0.5 MG TABLET GT SCH ×3 (05:43→21:06)
--- NOTE | 2016-09-27 06:24 | HOSP ---
Subjective - Review of Symptoms Events since last encounter: called by nurse who reports pt with nosebleed. Nurse applied direct pressure and an icepack, but slow ooze remains. Pt appears to be at his baseline in no distress. SBP 85. Physical Examination Vital Signs: Vital Signs Temperature 99.7 F H 09/27/16 02:00 Pulse Rate 56 L 09/27/16 02:00 Respiratory Rate 24 09/27/16 02:00 Blood Pressure 110/62 09/27/16 02:00 O2 Sat by Pulse Oximetry (%) 97 09/26/16 21:00 Constitutional: Yes: No Distress HENT: Yes: Other (oozing of blood noted left nare. No blood in mouth, pt unable to follow commands, unable to visualize posterior pharynx.) Cardiovascular: Yes: Regular Rate and Rhythm, S1, S2. No: Murmur, Rub Respiratory: Yes: CTA Bilaterally Gastrointestinal: Yes: Normal Bowel Sounds, Soft Labs: CBC, BMP 09/26/16 19:20 09/26/16 19:20 Hospitalist Encounter Assessment: epistaxis - left nare packed with 2x2 - oxygen changed to face mask with humidification - ENT consult, change to stat if bleeding recurs - CBC given hypotension - NS 250mL bolus
[2016-09-27 09:00] LABS: ALBUMIN 2.9 g/dl (3.4-5.0)
[2016-09-27 09:05] LABS: BILIRUBIN,DIRECT 0.1 mg/dL (0.0-0.2); BILIRUBIN,TOTAL 0.3 mg/dL (0.2-1.0)
[2016-09-27] MEDS ORDERED: PT OWN MED DRAWER 7, Y5N ONE ×2 (10:22→21:04)
[2016-09-27] MEDS: RANITIDINE HCL 150 MG/10 ML UNIT-DOSE CUP GT SCH ×2 (10:32→21:06)
[2016-09-27] MEDS: MAGNESIUM HYDROX 2400MG/30ML ORAL SUSPENSION 30 ML CUP PO SCH (10:34)
[2016-09-27] MEDS: FERROUS GLUC GT SCH (10:35)
[2016-09-27] MEDS: MULTIVIT MINERALS GT SCH (10:35)
[2016-09-27] MEDS: BACLOFEN 10 MG TABLET (FP) GT SCH ×2 (10:35→21:06)
[2016-09-27] MEDS: FLUTICASONE PROP 0.05% 16 GM NASAL SPRAY NS SCH (10:36)
[2016-09-27] MEDS: PHENobarbital 20 MG/5 ML UNIT-DOSE CUP GT SCH ×2 (10:37→21:07)
[2016-09-27] MEDS: CEFEPIME 1 GM/100 ML BAG PRE-DOCKED IVPB SCH ×2 (10:41→21:06)
[2016-09-27 10:49] LABS: CALCIUM 8.4 mg/dL (8.5-10.1); COCKROFT - GAULT 155.28; CREATININE 0.5 mg/dL (0.7-1.3)
[2016-09-27 11:02] LABS: BASOPHIL 0.5 % (0-2.0); EOSINOPHIL 0.2 % (0-4.5); MCH 33.7 pg (25.7-33.7); MCHC 33.3 g/dl (32.0-35.9); MEAN PLT VOLUME 10.2 fl (7.5-11.1); NEUTROPHILS 41.5 % (42.8-82.8); PLATELET COUNT 278 K/MM3 (134-434); RDW 14.9 % (11.9-15.9)
[2016-09-27 11:14] LABS: INR 1.12 (0.82-1.09); PROTHROMBIN TIME (PATIENT) 12.4 SEC (9.98-11.88)
--- NOTE | 2016-09-27 11:21 | PN ---
Progress Note, Physician History of Present Illness: pulmonary awake,-resp distress,-tachypnea. +epistaxis earlier - Current Medication List Current Medications: Active Medications Acetaminophen (Tylenol Suppository -) 650 mg [place] Q6H PRN PRN Reason: FEVER OR PAIN Last Admin: 09/27/16 00:46 Dose: 650 mg Amino Acids (Prosource No Carb Liquid Pkt) 30 ml PO Q24H [facility] Last Admin: 09/27/16 10:35 Dose: 30 ml Baclofen (Lioresal -) 10 mg GT BID [facility] Last Admin: 09/27/16 10:35 Dose: 10 mg Bisacodyl (Dulcolax Suppository -) 10 mg RC DAILY PRN PRN Reason: CONSTIPATION Last Admin: 09/21/16 04:00 Dose: 10 mg Cefepime HCl (Maxipime 1gm Ivpb Pre-Docked) 1 gm IVPB BID [facility]OR[facility] PRN Reason: Protocol Last Admin: 09/27/16 10:41 Dose: 1 gm Clonazepam (Klonopin -) 0.5 mg GT TID [facility] Last Admin: 09/27/16 05:43 Dose: 0.5 mg Fluticasone Propionate (Flonase -) 1 - 2 spray NS DAILY [facility] Last Admin: 09/27/16 10:36 Dose: 1 sprays Vancomycin HCl (Vancomycin (Pre-Docked)) 250 mls @ 200 mls/hr IVPB DAILY@1200 [facility]OR[facility] Last Admin: 09/26/16 11:53 Dose: 200 mls/hr Sodium Chloride (Normal Saline -) 1,000 mls @ 100 mls/hr IV ASDIR [facility]OR[facility] Last Admin: 09/27/16 10:06 Dose: 100 mls/hr Sodium Chloride (Normal Saline -) 1,000 mls @ 125 mls/hr IV ASDIR [facility]OR[facility] Last Admin: 09/27/16 05:26 Dose: Not Given Lactobacillus Acidophilus (Bacid -) 1 tab GT HS [facility] Last Admin: 09/26/16 21:11 Dose: 1 tab Magnesium Hydroxide (Milk Of Magnesia -) 20 ml PO DAILY [facility] Last Admin: 09/27/16 10:34 Dose: 20 ml Phenobarbital (Phenobarbital Liquid -) 15 mg GT BID [facility] Last Admin: 09/27/16 10:37 Dose: 15 mg Ranitidine HCl (Zantac Oral Solution -) 75 mg GT BID [facility] Last Admin: 09/27/16 10:32 Dose: 75 mg - Objective Vital Signs: Vital Signs Temperature 99.4 F 09/27/16 06:00 Pulse Rate 50 L 09/27/16 10:03 Respiratory Rate 24 09/27/16 02:00 Blood Pressure 91/43 09/27/16 06:00 O2 Sat by Pulse Oximetry (%) 96 09/27/16 10:03 Constitutional: Yes: Calm, Thin Eyes: Yes: WNL HENT: Yes: WNL Neck: Yes: WNL Cardiovascular: Yes: Regular Rate and Rhythm, S1, S2 Respiratory: Yes: Diminished Gastrointestinal: Yes: Normal Bowel Sounds, Soft Extremities: Yes: Shortened Labs: CBC, BMP 09/27/16 07:00 INR, PTT INR 1.15 (0.82-1.09) H 09/13/16 21:04 Assessment/Plan Problem List - Problems (1) Pneumonia Code(s): J18.9 - PNEUMONIA, UNSPECIFIED ORGANISM (2) Hypothermia Code(s): T68.XXXA - HYPOTHERMIA, INITIAL ENCOUNTER (3) Seizure Code(s): R56.9 - UNSPECIFIED CONVULSIONS (4) Asthma Code(s): J45.909 - UNSPECIFIED ASTHMA, UNCOMPLICATED (5) Epilepsy Code(s): G40.909 - EPILEPSY, UNSP, NOT INTRACTABLE, WITHOUT STATUS EPILEPTICUS (6) Profound mental retardation Code(s): F73 - PROFOUND INTELLECTUAL DISABILITIES (7) Aspiration pneumonia Code(s): J69.0 - PNEUMONITIS DUE TO INHALATION OF FOOD AND VOMIT Assessment/Plan PLAN: O2 ABX per ID Aspiration precautions Inhaled bronchodilators ENT evaluation DR VILLALTA
--- NOTE | 2016-09-27 14:53 | PN ---
Progress Note (short form) - Note Progress Note: Subjective: The patient was seen and examined at the bedside, he remains non- verbal. Opens eyes to tactile stimuli Afebrile since 09/25 Current Medications Generic Name Dose Route Start Last Admin Trade Name Freq PRN Reason Stop Dose Admin Acetaminophen 650 mg 09/21/16 17:56 09/27/16 00:46 Tylenol Suppository - MO 650 mg Q6H PRN Administration FEVER OR PAIN Amino Acids 30 ml 09/24/16 08:00 09/27/16 10:35 Prosource No Carb Liquid Pkt PO 30 ml Q24H JORGE Administration Baclofen 10 mg 09/14/16 10:00 09/27/16 10:35 Lioresal - GT 10 mg BID JORGE Administration Bisacodyl 10 mg 09/14/16 00:14 09/21/16 04:00 Dulcolax Suppository - RC 10 mg DAILY PRN Administration CONSTIPATION Cefepime HCl 1 gm 09/25/16 11:15 09/27/16 10:41 Maxipime 1gm Ivpb Pre-Docked IVPB 1 gm BID JORGE Administration Protocol Clonazepam 0.5 mg 09/14/16 06:00 09/27/16 05:43 Klonopin - GT 0.5 mg TID JORGE Administration Fluticasone Propionate 1 - 2 spray 09/14/16 10:00 09/27/16 10:36 Flonase - NS 1 sprays DAILY JORGE Administration Vancomycin HCl 250 mls @ 200 mls/hr 09/25/16 12:00 09/26/16 11:53 Vancomycin (Pre-Docked) IVPB 200 mls/hr DAILY@1200 JORGE Administration Sodium Chloride 1,000 mls @ 100 mls/hr 09/25/16 13:00 09/27/16 10:06 Normal Saline - IV 100 mls/hr ASDIR JORGE Administration Sodium Chloride 1,000 mls @ 125 mls/hr 09/25/16 12:30 09/27/16 05:26 Normal Saline - IV Not Given ASDIR JORGE Lactobacillus Acidophilus 1 tab 09/14/16 22:00 09/26/16 21:11 Bacid - GT 1 tab HS JORGE Administration Magnesium Hydroxide 20 ml 09/14/16 10:00 09/27/16 10:34 Milk Of Magnesia - PO 20 ml DAILY JORGE Administration Phenobarbital 15 mg 09/14/16 10:00 09/27/16 10:37 Phenobarbital Liquid - GT 15 mg BID JORGE Administration Ranitidine HCl 75 mg 09/14/16 10:00 09/27/16 10:32 Zantac Oral Solution - GT 75 mg BID JORGE Administration Objective: Vital Signs Period Temp Pulse Resp BP Sys/Linares Pulse Ox Last 24 Hr 97.8 F-99.7 F 50-80 20-24 89-112/43-70 96-97 Physical Exam GENERAL: NAD, nonverbal LUNGS: CTA bilaterally HEART: RRR, S1S2 ABDOMEN: Soft, nontender, nondistended, normoactive bowel sounds, PEG tube in place. EXTREMITIES: Contracted. 2+ pulses, warm, well-perfused, no edema. NEUROLOGICAL: Nonverbal, unable to follow commands at baseline. SKIN: Warm, dry, normal turgor, cap refill < 3 seconds. CBCD WBC 8.0 K/mm3 (4.0-10.0) D 09/27/16 06:00 RBC 2.71 M/mm3 (4.00-5.60) L 09/27/16 06:00 Hgb 9.1 GM/dL (11.7-16.9) L 09/27/16 06:00 Hct 27.4 % (35.4-49) L 09/27/16 06:00 MCV 101.0 fl (80-96) H 09/27/16 06:00 MCHC 33.3 g/dl (32.0-35.9) 09/27/16 06:00 RDW 14.9 % (11.9-15.9) 09/27/16 06:00 Plt Count 278 K/MM3 (134-434) 09/27/16 06:00 MPV 10.2 fl (7.5-11.1) 09/27/16 06:00 CMP Sodium 143 mmol/L (136-145) 09/27/16 07:00 Potassium 4.3 mmol/L (3.5-5.1) 09/27/16 07:00 Chloride 111 mmol/L (98-107) H 09/27/16 07:00 Carbon Dioxide 22 mmol/L (21-32) D 09/27/16 07:00 Anion Gap 10 (8-16) 09/27/16 07:00 BUN 9 mg/dL (7-18) D 09/27/16 07:00 Creatinine 0.5 mg/dL (0.7-1.3) L 09/27/16 07:00 Creat Clearance w eGFR > 60 (>60) 09/26/16 19:20 Random Glucose 85 mg/dL (74-106) 09/27/16 07:00 Calcium 8.4 mg/dL (8.5-10.1) L 09/27/16 07:00 Total Bilirubin 0.3 mg/dL (0.2-1.0) 09/27/16 07:00 AST 271 U/L (15-37) H D 09/27/16 07:00 ALT 436 U/L (12-78) H D 09/27/16 07:00 Alkaline Phosphatase 149 U/L (45-117) H 09/27/16 07:00 Total Protein 7.0 g/dl (6.4-8.2) 09/27/16 07:00 Albumin 2.9 g/dl (3.4-5.0) L 09/27/16 07:00 CARDIAC ENZYMES Creatine Kinase 46 IU/L (39-308) 09/14/16 05:35 Troponin I < 0.02 ng/ml (0.00-0.05) 09/14/16 05:35 Microbiology 09/25/16 10:20 Blood - Peripheral Venous Blood Culture - Preliminary NO GROWTH OBTAINED AFTER 48 HOURS, INCUBATION TO CONTINUE FOR 3 DAYS. 09/25/16 10:35 Blood - Peripheral Venous Blood Culture - Preliminary NO GROWTH OBTAINED AFTER 48 HOURS, INCUBATION TO CONTINUE FOR 3 DAYS. 09/21/16 20:33 Blood - Peripheral Venous Blood Culture - Final NO GROWTH AFTER 5 DAYS INCUBATION 09/21/16 20:33 Blood - Peripheral Venous Blood Culture - Final NO GROWTH AFTER 5 DAYS INCUBATION 09/21/16 18:13 Urine - Urine - Catheterized Urine Culture - Final NO GROWTH OBTAINED 09/16/16 17:10 Sputum - Aerosol Induced Gram Stain - Final 09/16/16 17:10 Sputum - Aerosol Induced Sputum Culture - Final Pseudomonas Aeruginosa 09/13/16 21:04 Blood - Peripheral Venous Blood Culture - Final NO GROWTH AFTER 5 DAYS INCUBATION 09/13/16 21:04 Blood - Peripheral Venous Blood Culture - Final NO GROWTH AFTER 5 DAYS INCUBATION 09/13/16 22:30 Urine - Urine - Catheterized Urine Culture - Final NO GROWTH OBTAINED Assessment: This is a 21 year old male with PMHx of profound mental retardation , herpes encephalopathy, seizure disorder, asthma who presented to the ED with acute respiratory distress and was found to have pneumonia. Plan: 1) Respiratory: Acute hypoxic respiratory failure 2/2 pneumonia - Chest CT with patchy groundglass opacification bilaterally possibly related to pulmonary vascular congestion, although diffuse pneumonia cannot be excluded - Baseline temp 95-96 - Sputum culture with Pseudomonas Aeruginosa - Spiked fever to 105.9 on 09/25, blood cultures negative, repeat urine culture pending - Completed course of Zosyn, now on Cefepime and Vancomycin - Per neuro, fevers not believed to be of central origin - Appreciate ID consult Pulmonary vascular congestion - Resolved 2) Neurology: Herpes encephalopathy - Continue acyclovir Seizure disorder - Continue clonazepam, clobazam, phenobarbital 3) F/E/N: - Tube feeds on hold for now - Continue IV fluids - Monitor electrolytes 4) Prophylaxis: - Heparin 5,000u sq tid - Functional quadriplegia 5) Dispo: - Requires continued inpatient care CODE STATUS: FULL CODE Visit type - Emergency Visit Emergency Visit: Yes ED Registration Date: 09/13/16 Care time: The patient presented to the Emergency Department on the above date and was hospitalized for further evaluation of their emergent condition. - New Patient This patient is new to me today: No - Critical Care Critical Care patient: No
[2016-09-27] MEDS: VANCOMYCIN 1 GRAM (PRE-DOCKED) 250 ML IVPB SCH (15:50)
[2016-09-27] MEDS: LACTOBACILLUS ACIDOPHILUS 1 EACH TAB (FP) GT SCH (21:06)
[2016-09-28] MEDS: clonazePAM 0.5 MG TABLET GT SCH ×3 (05:37→21:13)
[2016-09-28] MEDS: ACETAMINOPHEN 650 MG SUPP.RECT PR PRN (06:17)
[2016-09-28] MEDS: SODIUM CHLORIDE 1,000 ML IV SCH ×2 (07:30→14:22)
[2016-09-28 07:54] LABS: MCH 33.7 pg (25.7-33.7); MCHC 33.8 g/dl (32.0-35.9); MEAN CELL VOLUME 99.5 fl (80-96); PLATELET COUNT 306 K/MM3 (134-434); WHITE BLOOD COUNT 8.9 K/mm3 (4.0-10.0)
[2016-09-28 08:39] LABS: ALBUMIN 2.6 g/dl (3.4-5.0); ALK PHOS 135 U/L (45-117); ANION GAP 11 (8-16); BILIRUBIN,TOTAL 0.5 mg/dL (0.2-1.0); CALCIUM 8.2 mg/dL (8.5-10.1); CO2 23 mmol/L (21-32); CREATININE 0.4 mg/dL (0.7-1.3); GLUCOSE,RANDOM 85 mg/dL (74-106); SGOT/AST 96 U/L (15-37); SGPT/ALT 263 U/L (12-78); TOT PROT 6.5 g/dl (6.4-8.2)
[2016-09-28] MEDS ORDERED: PT OWN MED DRAWER 7, Y5N ONE ×3 (09:37→21:10)
[2016-09-28] MEDS: PHENobarbital 20 MG/5 ML UNIT-DOSE CUP GT SCH ×2 (09:46→21:13)
[2016-09-28] MEDS: FLUTICASONE PROP 0.05% 16 GM NASAL SPRAY NS SCH (09:46)
[2016-09-28] MEDS: CEFEPIME 1 GM/100 ML BAG PRE-DOCKED IVPB SCH ×2 (09:46→21:13)
[2016-09-28] MEDS: RANITIDINE HCL 150 MG/10 ML UNIT-DOSE CUP GT SCH ×2 (09:47→21:13)
[2016-09-28] MEDS: BACLOFEN 10 MG TABLET (FP) GT SCH ×2 (09:47→21:13)
[2016-09-28] MEDS: MAGNESIUM HYDROX 2400MG/30ML ORAL SUSPENSION 30 ML CUP PO SCH (09:47)
[2016-09-28] MEDS: MULTIVIT MINERALS GT SCH (09:48)
[2016-09-28] MEDS: AMINO ACIDS/PROTEIN HYDROLYS 30 ML LIQUID.PKT PO SCH (09:48)
[2016-09-28] MEDS: FERROUS GLUC GT SCH (09:48)
[2016-09-28] MEDS: VANCOMYCIN 1 GRAM (PRE-DOCKED) 250 ML IVPB SCH (11:50)
--- NOTE | 2016-09-28 13:18 | PN ---
Progress Note, Physician History of Present Illness: pulmonary no change,awake,-resp distress,remains febrile. epistaxis resolved - Current Medication List Current Medications: Active Medications Acetaminophen (Tylenol Suppository -) 650 mg [place] Q6H PRN PRN Reason: FEVER OR PAIN Last Admin: 09/28/16 06:17 Dose: 650 mg Amino Acids (Prosource No Carb Liquid Pkt) 30 ml PO Q24H JORGE Last Admin: 09/28/16 09:48 Dose: 30 ml Baclofen (Lioresal -) 10 mg GT BID JORGE Last Admin: 09/28/16 09:47 Dose: 10 mg Bisacodyl (Dulcolax Suppository -) 10 mg RC DAILY PRN PRN Reason: CONSTIPATION Last Admin: 09/21/16 04:00 Dose: 10 mg Cefepime HCl (Maxipime 1gm Ivpb Pre-Docked) 1 gm IVPB BID JORGE PRN Reason: Protocol Last Admin: 09/28/16 09:46 Dose: 1 gm Clonazepam (Klonopin -) 0.5 mg GT TID [facility] Last Admin: 09/28/16 05:37 Dose: 0.5 mg Fluticasone Propionate (Flonase -) 1 - 2 spray NS DAILY [facility] Last Admin: 09/28/16 09:46 Dose: 2 sprays Vancomycin HCl (Vancomycin (Pre-Docked)) 250 mls @ 200 mls/hr IVPB DAILY@1200 JORGE Last Admin: 09/28/16 11:50 Dose: 200 mls/hr Sodium Chloride (Normal Saline -) 1,000 mls @ 100 mls/hr IV ASDIR JORGE Last Admin: 09/27/16 20:10 Dose: 100 mls/hr Sodium Chloride (Normal Saline -) 1,000 mls @ 125 mls/hr IV ASDIR JORGE Last Admin: 09/27/16 20:10 Dose: Not Given Lactobacillus Acidophilus (Bacid -) 1 tab GT HS [facility] Last Admin: 09/27/16 21:06 Dose: 1 tab Magnesium Hydroxide (Milk Of Magnesia -) 20 ml PO DAILY [facility] Last Admin: 09/28/16 09:47 Dose: 20 ml Phenobarbital (Phenobarbital Liquid -) 15 mg GT BID [facility] Last Admin: 09/28/16 09:46 Dose: 15 mg Ranitidine HCl (Zantac Oral Solution -) 75 mg GT BID [facility] Last Admin: 09/28/16 09:47 Dose: 75 mg - Objective Vital Signs: Vital Signs Temperature 99.8 F H 09/28/16 10:00 Pulse Rate 68 09/28/16 10:00 Respiratory Rate 20 09/28/16 10:00 Blood Pressure 102/71 09/28/16 10:00 O2 Sat by Pulse Oximetry (%) 96 09/28/16 09:00 Constitutional: Yes: Calm, Thin Eyes: Yes: WNL HENT: Yes: WNL Neck: Yes: WNL Cardiovascular: Yes: Regular Rate and Rhythm, S1, S2 Respiratory: Yes: Rhonchi (few rhonchi) Gastrointestinal: Yes: Normal Bowel Sounds, Soft Extremities: Yes: Shortened Labs: CBC, BMP 09/28/16 07:00 09/28/16 07:00 INR, PTT INR 1.12 (0.82-1.09) 09/27/16 06:00 Assessment/Plan Problem List - Problems (1) Pneumonia Code(s): J18.9 - PNEUMONIA, UNSPECIFIED ORGANISM (2) Hypothermia Code(s): T68.XXXA - HYPOTHERMIA, INITIAL ENCOUNTER (3) Seizure Code(s): R56.9 - UNSPECIFIED CONVULSIONS (4) Asthma Code(s): J45.909 - UNSPECIFIED ASTHMA, UNCOMPLICATED (5) Epilepsy Code(s): G40.909 - EPILEPSY, UNSP, NOT INTRACTABLE, WITHOUT STATUS EPILEPTICUS (6) Profound mental retardation Code(s): F73 - PROFOUND INTELLECTUAL DISABILITIES (7) Aspiration pneumonia Code(s): J69.0 - PNEUMONITIS DUE TO INHALATION OF FOOD AND VOMIT Assessment/Plan PLAN: O2 ABX per ID Aspiration precautions Inhaled bronchodilators DR VILLALTA
--- NOTE | 2016-09-28 13:23 | PN ---
Progress Note (short form) - Note Progress Note: Subjective: The patient was seen and examined at the bedside, he remains non- verbal. Opens eyes to tactile stimuli Tmax 100.3 Current Medications Generic Name Dose Route Start Last Admin Trade Name Freq PRN Reason Stop Dose Admin Acetaminophen 650 mg 09/21/16 17:56 09/28/16 06:17 Tylenol Suppository - [place] 650 mg Q6H PRN Administration FEVER OR PAIN Amino Acids 30 ml 09/24/16 08:00 09/28/16 09:48 Prosource No Carb Liquid Pkt PO 30 ml Q24H JORGE Administration Baclofen 10 mg 09/14/16 10:00 09/28/16 09:47 Lioresal - GT 10 mg BID JORGE Administration Bisacodyl 10 mg 09/14/16 00:14 09/21/16 04:00 Dulcolax Suppository - RC 10 mg DAILY PRN Administration CONSTIPATION Cefepime HCl 1 gm 09/25/16 11:15 09/28/16 09:46 Maxipime 1gm Ivpb Pre-Docked IVPB 1 gm BID JORGE Administration Protocol Clonazepam 0.5 mg 09/14/16 06:00 09/28/16 05:37 Klonopin - GT 0.5 mg TID JORGE Administration Fluticasone Propionate 1 - 2 spray 09/14/16 10:00 09/28/16 09:46 Flonase - NS 2 sprays DAILY JORGE Administration Vancomycin HCl 250 mls @ 200 mls/hr 09/25/16 12:00 09/28/16 11:50 Vancomycin (Pre-Docked) IVPB 200 mls/hr DAILY@1200 JORGE Administration Sodium Chloride 1,000 mls @ 100 mls/hr 09/25/16 13:00 09/27/16 20:10 Normal Saline - IV 100 mls/hr ASDIR JORGE Administration Sodium Chloride 1,000 mls @ 125 mls/hr 09/25/16 12:30 09/27/16 20:10 Normal Saline - IV Not Given ASDIR JORGE Lactobacillus Acidophilus 1 tab 09/14/16 22:00 09/27/16 21:06 Bacid - GT 1 tab HS JORGE Administration Magnesium Hydroxide 20 ml 09/14/16 10:00 09/28/16 09:47 Milk Of Magnesia - PO 20 ml DAILY JORGE Administration Phenobarbital 15 mg 09/14/16 10:00 09/28/16 09:46 Phenobarbital Liquid - GT 15 mg BID JORGE Administration Ranitidine HCl 75 mg 09/14/16 10:00 09/28/16 09:47 Zantac Oral Solution - GT 75 mg BID JORGE Administration Objective: Vital Signs Period Temp Pulse Resp BP Sys/Linares Pulse Ox Last 24 Hr 97.9 F-100.3 F 48-130 20-24 93-136/40-99 96-96 Physical Exam GENERAL: NAD, nonverbal LUNGS: CTA bilaterally HEART: RRR, S1S2 ABDOMEN: Soft, nontender, nondistended, normoactive bowel sounds, PEG tube in place. EXTREMITIES: Contracted. 2+ pulses, warm, well-perfused, no edema. NEUROLOGICAL: Nonverbal, unable to follow commands at baseline. SKIN: Warm, dry, normal turgor, cap refill < 3 seconds. CBCD WBC 8.9 K/mm3 (4.0-10.0) 09/28/16 07:00 RBC 2.66 M/mm3 (4.00-5.60) L 09/28/16 07:00 Hgb 9.0 GM/dL (11.7-16.9) L 09/28/16 07:00 Hct 26.5 % (35.4-49) L 09/28/16 07:00 MCV 99.5 fl (80-96) H 09/28/16 07:00 MCHC 33.8 g/dl (32.0-35.9) 09/28/16 07:00 RDW 15.0 % (11.9-15.9) 09/28/16 07:00 Plt Count 306 K/MM3 (134-434) 09/28/16 07:00 MPV 10.0 fl (7.5-11.1) 09/28/16 07:00 CMP Sodium 144 mmol/L (136-145) 09/28/16 07:00 Potassium 4.0 mmol/L (3.5-5.1) 09/28/16 07:00 Chloride 110 mmol/L (98-107) H 09/28/16 07:00 Carbon Dioxide 23 mmol/L (21-32) 09/28/16 07:00 Anion Gap 11 (8-16) 09/28/16 07:00 BUN 3 mg/dL (7-18) L D 09/28/16 07:00 Creatinine 0.4 mg/dL (0.7-1.3) L 09/28/16 07:00 Creat Clearance w eGFR > 60 (>60) 09/28/16 07:00 Random Glucose 85 mg/dL (74-106) 09/28/16 07:00 Calcium 8.2 mg/dL (8.5-10.1) L 09/28/16 07:00 Total Bilirubin 0.5 mg/dL (0.2-1.0) D 09/28/16 07:00 AST 96 U/L (15-37) H D 09/28/16 07:00 ALT 263 U/L (12-78) H D 09/28/16 07:00 Alkaline Phosphatase 135 U/L (45-117) H 09/28/16 07:00 Total Protein 6.5 g/dl (6.4-8.2) 09/28/16 07:00 Albumin 2.6 g/dl (3.4-5.0) L 09/28/16 07:00 CARDIAC ENZYMES Creatine Kinase 46 IU/L (39-308) 09/14/16 05:35 Troponin I < 0.02 ng/ml (0.00-0.05) 09/14/16 05:35 Microbiology 09/25/16 10:20 Blood - Peripheral Venous Blood Culture - Preliminary NO GROWTH OBTAINED AFTER 72 HOURS, INCUBATION TO CONTINUE FOR 2 DAYS. 09/25/16 10:35 Blood - Peripheral Venous Blood Culture - Preliminary NO GROWTH OBTAINED AFTER 72 HOURS, INCUBATION TO CONTINUE FOR 2 DAYS. 09/26/16 14:45 Urine - Urine Lane Urine Culture - Final NO GROWTH OBTAINED 09/21/16 20:33 Blood - Peripheral Venous Blood Culture - Final NO GROWTH AFTER 5 DAYS INCUBATION 09/21/16 20:33 Blood - Peripheral Venous Blood Culture - Final NO GROWTH AFTER 5 DAYS INCUBATION 09/21/16 18:13 Urine - Urine - Catheterized Urine Culture - Final NO GROWTH OBTAINED 09/16/16 17:10 Sputum - Aerosol Induced Gram Stain - Final 09/16/16 17:10 Sputum - Aerosol Induced Sputum Culture - Final Pseudomonas Aeruginosa 09/13/16 21:04 Blood - Peripheral Venous Blood Culture - Final NO GROWTH AFTER 5 DAYS INCUBATION 09/13/16 21:04 Blood - Peripheral Venous Blood Culture - Final NO GROWTH AFTER 5 DAYS INCUBATION 09/13/16 22:30 Urine - Urine - Catheterized Urine Culture - Final NO GROWTH OBTAINED Assessment: This is a 21 year old male with PMHx of profound mental retardation , herpes encephalopathy, seizure disorder, asthma who presented to the ED with acute respiratory distress and was found to have pneumonia. Plan: 1) Respiratory: Acute hypoxic respiratory failure 2/2 pseudomonas aeruginosa pneumonia - Improved - Chest CT with patchy groundglass opacification bilaterally possibly related to pulmonary vascular congestion, although diffuse pneumonia cannot be excluded - Baseline temp 95-96 - Completed course of Zosyn Pulmonary vascular congestion - Resolved 2) ID: Recurrent fevers - No clear source noted since pneumonia treated - Tmax 100.3 - Per neuro, fevers not believed to be of central origin - Continue Vancomycin - Continue Cefepime - Appreciate ID consult 3) Neurology: Herpes encephalopathy - Continue acyclovir Seizure disorder - Continue clonazepam, clobazam, phenobarbital 4) F/E/N: - Tube feeds on hold for now - Continue IV fluids - Monitor electrolytes 5) Prophylaxis: - Heparin 5,000u sq tid - Functional quadriplegia 6) Dispo: - Requires continued inpatient care CODE STATUS: FULL CODE Visit type - Emergency Visit Emergency Visit: Yes ED Registration Date: 09/13/16 Care time: The patient presented to the Emergency Department on the above date and was hospitalized for further evaluation of their emergent condition. - New Patient This patient is new to me today: No - Critical Care Critical Care patient: No
--- NOTE | 2016-09-28 13:33 | PN ---
Progress Note (short form) - Note Progress Note: looks quite comfortable NAD ct scans- fecal impaction only central line placed nose bleed yesterday Vital Signs Period Temp Pulse Resp BP Sys/Linares Pulse Ox Last 24 Hr 97.9 F-100.3 F 48-130 20-24 93-136/40-99 96-96 cor-rrr lungs clear abd soft,nt ext no edema +esqueda CBC, BMP 09/28/16 07:00 09/28/16 07:00 Microbiology 09/25/16 10:20 Blood Culture - Preliminary Blood - Peripheral Venous NO GROWTH OBTAINED AFTER 72 HOURS, INCUBATION TO CONTINUE FOR 2 DAYS. 09/25/16 10:35 Blood Culture - Preliminary Blood - Peripheral Venous NO GROWTH OBTAINED AFTER 72 HOURS, INCUBATION TO CONTINUE FOR 2 DAYS. 09/26/16 14:45 Urine Culture - Final Urine - Urine Esqueda NO GROWTH OBTAINED a/p recurrent fever- on vanco/cefepime day #4, would complete 5 days of antiibiotics then d/c antibiotics and observe, cultures/ct scan are negative multiple developmental delays
[2016-09-28] MEDS: LACTOBACILLUS ACIDOPHILUS 1 EACH TAB (FP) GT SCH (21:13)
[2016-09-29] MEDS: clonazePAM 0.5 MG TABLET GT SCH ×3 (05:23→21:47)
[2016-09-29 08:08] LABS: ALBUMIN 2.3 g/dl (3.4-5.0); ANION GAP 8 (8-16); BILIRUBIN,TOTAL 0.2 mg/dL (0.2-1.0); CALCIUM 7.3 mg/dL (8.5-10.1); CO2 23 mmol/L (21-32); CREATININE 0.3 mg/dL (0.7-1.3); GLUCOSE,RANDOM 78 mg/dL (74-106); SGOT/AST 47 U/L (15-37); SGPT/ALT 161 U/L (12-78); TOT PROT 5.7 g/dl (6.4-8.2)
[2016-09-29 08:09] LABS: ALK PHOS 122 U/L (45-117)
[2016-09-29] MEDS: SODIUM CHLORIDE 1,000 ML IV SCH (08:42)
[2016-09-29] MEDS: AMINO ACIDS/PROTEIN HYDROLYS 30 ML LIQUID.PKT PO SCH (08:43)
[2016-09-29] MEDS ORDERED: PT OWN MED DRAWER 7, Y5N ONE ×2 (09:46→20:45)
[2016-09-29] MEDS: MAGNESIUM HYDROX 2400MG/30ML ORAL SUSPENSION 30 ML CUP PO SCH (09:52)
[2016-09-29] MEDS: BACLOFEN 10 MG TABLET (FP) GT SCH ×2 (09:53→21:47)
[2016-09-29] MEDS: FLUTICASONE PROP 0.05% 16 GM NASAL SPRAY NS SCH (09:53)
[2016-09-29] MEDS: RANITIDINE HCL 150 MG/10 ML UNIT-DOSE CUP GT SCH ×2 (09:54→21:46)
[2016-09-29] MEDS: PHENobarbital 20 MG/5 ML UNIT-DOSE CUP GT SCH ×2 (09:55→21:47)
[2016-09-29] MEDS: MULTIVIT MINERALS GT SCH (09:56)
[2016-09-29] MEDS: FERROUS GLUC GT SCH (09:56)
[2016-09-29] MEDS: CEFEPIME 1 GM/100 ML BAG PRE-DOCKED IVPB SCH ×2 (10:06→21:47)
--- NOTE | 2016-09-29 10:47 | PN ---
Progress Note (short form) - Note Progress Note: Subjective: The patient was seen and examined at the bedside, he remains non- verbal. Opens eyes to tactile stimuli Tmax 100.1 Discontinue esqueda catheter Start tube feeds Last day of IV abx today, monitor overnight and possible d/c tomorrow afternoon if remains stable Current Medications Generic Name Dose Route Start Last Admin Trade Name Freq PRN Reason Stop Dose Admin Acetaminophen 650 mg 09/21/16 17:56 09/28/16 06:17 Tylenol Suppository - [place] 650 mg Q6H PRN Administration FEVER OR PAIN Amino Acids 30 ml 09/24/16 08:00 09/29/16 08:43 Prosource No Carb Liquid Pkt PO 30 ml Q24H JORGE Administration Baclofen 10 mg 09/14/16 10:00 09/29/16 09:53 Lioresal - GT 10 mg BID JORGE Administration Bisacodyl 10 mg 09/14/16 00:14 09/21/16 04:00 Dulcolax Suppository - RC 10 mg DAILY PRN Administration CONSTIPATION Cefepime HCl 1 gm 09/25/16 11:15 09/29/16 10:06 Maxipime 1gm Ivpb Pre-Docked IVPB 1 gm BID JORGE Administration Protocol Clonazepam 0.5 mg 09/14/16 06:00 09/29/16 05:23 Klonopin - GT 0.5 mg TID JORGE Administration Fluticasone Propionate 1 - 2 spray 09/14/16 10:00 09/29/16 09:53 Flonase - NS 2 sprays DAILY JORGE Administration Vancomycin HCl 250 mls @ 200 mls/hr 09/25/16 12:00 09/28/16 11:50 Vancomycin (Pre-Docked) IVPB 200 mls/hr DAILY@1200 JORGE Administration Sodium Chloride 1,000 mls @ 100 mls/hr 09/25/16 13:00 09/29/16 08:42 Normal Saline - IV 100 mls/hr ASDIR JORGE Administration Lactobacillus Acidophilus 1 tab 09/14/16 22:00 09/28/16 21:13 Bacid - GT 1 tab HS JORGE Administration Magnesium Hydroxide 20 ml 09/14/16 10:00 09/29/16 09:52 Milk Of Magnesia - PO 20 ml DAILY JORGE Administration Phenobarbital 15 mg 09/14/16 10:00 09/29/16 09:55 Phenobarbital Liquid - GT 15 mg BID JORGE Administration Ranitidine HCl 75 mg 09/14/16 10:00 09/29/16 09:54 Zantac Oral Solution - GT 75 mg BID JORGE Administration Objective: Vital Signs Period Temp Pulse Resp BP Sys/Linares Pulse Ox Last 24 Hr 98.7 F-100.1 F 50-96 18-22 98-134/46-64 97-97 Physical Exam GENERAL: NAD, nonverbal LUNGS: CTA bilaterally HEART: RRR, S1S2 ABDOMEN: Soft, nontender, nondistended, normoactive bowel sounds, PEG tube in place. EXTREMITIES: Contracted. 2+ pulses, warm, well-perfused, no edema. NEUROLOGICAL: Nonverbal, unable to follow commands at baseline. SKIN: Warm, dry, normal turgor, cap refill < 3 seconds. CBCD WBC 8.9 K/mm3 (4.0-10.0) 09/28/16 07:00 RBC 2.66 M/mm3 (4.00-5.60) L 09/28/16 07:00 Hgb 9.0 GM/dL (11.7-16.9) L 09/28/16 07:00 Hct 26.5 % (35.4-49) L 09/28/16 07:00 MCV 99.5 fl (80-96) H 09/28/16 07:00 MCHC 33.8 g/dl (32.0-35.9) 09/28/16 07:00 RDW 15.0 % (11.9-15.9) 09/28/16 07:00 Plt Count 306 K/MM3 (134-434) 09/28/16 07:00 MPV 10.0 fl (7.5-11.1) 09/28/16 07:00 CMP Sodium 148 mmol/L (136-145) H 09/29/16 06:30 Potassium 3.7 mmol/L (3.5-5.1) 09/29/16 06:30 Chloride 117 mmol/L (98-107) H 09/29/16 06:30 Carbon Dioxide 23 mmol/L (21-32) 09/29/16 06:30 Anion Gap 8 (8-16) 09/29/16 06:30 BUN 5 mg/dL (7-18) L D 09/29/16 06:30 Creatinine 0.3 mg/dL (0.7-1.3) L D 09/29/16 06:30 Creat Clearance w eGFR > 60 (>60) 09/29/16 06:30 Calcium 7.3 mg/dL (8.5-10.1) L 09/29/16 06:30 Total Bilirubin 0.2 mg/dL (0.2-1.0) D 09/29/16 06:30 AST 47 U/L (15-37) H D 09/29/16 06:30 ALT 161 U/L (12-78) H D 09/29/16 06:30 Alkaline Phosphatase 122 U/L (45-117) H 09/29/16 06:30 Total Protein 5.7 g/dl (6.4-8.2) L 09/29/16 06:30 Albumin 2.3 g/dl (3.4-5.0) L 09/29/16 06:30 Microbiology 09/25/16 10:20 Blood - Peripheral Venous Blood Culture - Preliminary NO GROWTH OBTAINED AFTER 72 HOURS, INCUBATION TO CONTINUE FOR 2 DAYS. 09/25/16 10:35 Blood - Peripheral Venous Blood Culture - Preliminary NO GROWTH OBTAINED AFTER 72 HOURS, INCUBATION TO CONTINUE FOR 2 DAYS. 09/26/16 14:45 Urine - Urine Esqueda Urine Culture - Final NO GROWTH OBTAINED 09/21/16 20:33 Blood - Peripheral Venous Blood Culture - Final NO GROWTH AFTER 5 DAYS INCUBATION 09/21/16 20:33 Blood - Peripheral Venous Blood Culture - Final NO GROWTH AFTER 5 DAYS INCUBATION 09/21/16 18:13 Urine - Urine - Catheterized Urine Culture - Final NO GROWTH OBTAINED 09/16/16 17:10 Sputum - Aerosol Induced Gram Stain - Final 09/16/16 17:10 Sputum - Aerosol Induced Sputum Culture - Final Pseudomonas Aeruginosa 09/13/16 21:04 Blood - Peripheral Venous Blood Culture - Final NO GROWTH AFTER 5 DAYS INCUBATION 09/13/16 21:04 Blood - Peripheral Venous Blood Culture - Final NO GROWTH AFTER 5 DAYS INCUBATION 09/13/16 22:30 Urine - Urine - Catheterized Urine Culture - Final NO GROWTH OBTAINED Assessment: This is a 21 year old male with PMHx of profound mental retardation , herpes encephalopathy, seizure disorder, asthma who presented to the ED with acute respiratory distress and was found to have pneumonia. Plan: 1) Respiratory: Acute hypoxic respiratory failure 2/2 pseudomonas aeruginosa pneumonia - Improved - Chest CT with patchy groundglass opacification bilaterally possibly related to pulmonary vascular congestion, although diffuse pneumonia cannot be excluded - Baseline temp 95-96 - Completed course of Zosyn Pulmonary vascular congestion - Resolved 2) ID: Recurrent fevers - No clear source noted since pneumonia treated - Tmax 100.3 - Per neuro, fevers not believed to be of central origin - Continue Vancomycin (09/25-09/29) - Continue Cefepime (09/25-09/29) - Appreciate ID consult 3) Neurology: Herpes encephalopathy - Continue acyclovir Seizure disorder - Continue clonazepam, clobazam, phenobarbital 4) F/E/N: - Restart tube feeds - Discontinue IV fluids - Monitor electrolytes - Discontinue esqueda catheter and monitor number of wet diapers 5) Prophylaxis: - Heparin 5,000u sq tid - Functional quadriplegia 6) Dispo: - Requires continued inpatient care - Possible d/c if remains afebrile 24 hours after abx stopped CODE STATUS: FULL CODE Visit type - Emergency Visit Emergency Visit: Yes ED Registration Date: 09/13/16 Care time: The patient presented to the Emergency Department on the above date and was hospitalized for further evaluation of their emergent condition. - New Patient This patient is new to me today: No - Critical Care Critical Care patient: No
--- NOTE | 2016-09-29 11:06 | PN ---
Progress Note (short form) - Note Progress Note: PULMONARY Low grade temps overnight. Epistaxis yesterday. Last Vital Signs Temp Pulse Resp BP Pulse Ox 99.3 F 50 L 20 111/58 97 09/29/16 09:41 09/29/16 09:41 09/29/16 09:41 09/29/16 09:41 09/28/16 21:00 Gen: breathing nonlabored Heart: RRR Lung: decreased breath sounds at the bases Abd: soft, nontender Ext: no edema, contracted CBC, BMP 09/28/16 07:00 09/29/16 06:30 Active Medications Acetaminophen (Tylenol Suppository -) 650 mg MO Q6H PRN PRN Reason: FEVER OR PAIN Last Admin: 09/28/16 06:17 Dose: 650 mg Amino Acids (Prosource No Carb Liquid Pkt) 30 ml PO Q24H [facility] Last Admin: 09/29/16 08:43 Dose: 30 ml Baclofen (Lioresal -) 10 mg GT BID [facility] Last Admin: 09/29/16 09:53 Dose: 10 mg Bisacodyl (Dulcolax Suppository -) 10 mg RC DAILY PRN PRN Reason: CONSTIPATION Last Admin: 09/21/16 04:00 Dose: 10 mg Cefepime HCl (Maxipime 1gm Ivpb Pre-Docked) 1 gm IVPB BID [facility] PRN Reason: Protocol Last Admin: 09/29/16 10:06 Dose: 1 gm Clonazepam (Klonopin -) 0.5 mg GT TID [facility] Last Admin: 09/29/16 05:23 Dose: 0.5 mg Fluticasone Propionate (Flonase -) 1 - 2 spray NS DAILY [facility] Last Admin: 09/29/16 09:53 Dose: 2 sprays Vancomycin HCl (Vancomycin (Pre-Docked)) 250 mls @ 200 mls/hr IVPB DAILY@1200 [facility] Last Admin: 09/28/16 11:50 Dose: 200 mls/hr Sodium Chloride (Normal Saline -) 1,000 mls @ 100 mls/hr IV ASDIR [facility] Last Admin: 09/29/16 08:42 Dose: 100 mls/hr Lactobacillus Acidophilus (Bacid -) 1 tab GT HS [facility] Last Admin: 09/28/16 21:13 Dose: 1 tab Magnesium Hydroxide (Milk Of Magnesia -) 20 ml PO DAILY [facility] Last Admin: 09/29/16 09:52 Dose: 20 ml Phenobarbital (Phenobarbital Liquid -) 15 mg GT BID [facility] Last Admin: 09/29/16 09:55 Dose: 15 mg Ranitidine HCl (Zantac Oral Solution -) 75 mg GT BID [facility] Last Admin: 09/29/16 09:54 Dose: 75 mg A/P Pneumonia Mental Retardation Seizure Disorder Asthma - continue antibiotics - aspiration precautions - O2 to keep SPo2 >90% - DVT prophylaxis
[2016-09-29] MEDS: VANCOMYCIN 1 GRAM (PRE-DOCKED) 250 ML IVPB SCH (11:52)
--- NOTE | 2016-09-29 11:57 | PN ---
Progress Note (short form) - Note Progress Note: looks quite comfortable low grade temps NAD ct scans- fecal impaction only Vital Signs Period Temp Pulse Resp BP Sys/Linares Pulse Ox Last 24 Hr 98.7 F-100.1 F 50-96 18-22 98-134/46-64 97-97 cor-rrr lungs decreased bs at bases abd soft,nt ext no edema a/p recurrent fever- on vanco/cefepime day #5, d/c antibiotics today, and observe d/w hospitalist service multiple developmental delays
--- NOTE | 2016-09-29 18:27 | PN ---
Progress Note (short form) - Note Progress Note: ENT Consultation pt had acute nasal bleeding 5-20-17, 2x2 packed into left nostril presently no active bleeding PE nonverbal conjunctivae clear external ears normal nose normal externally anterior septum, no bleeding either side nasal passages patent, mouth: maxilary crowding and dry mucosa Impression: acute epistaxis, resolved Recommend: continue humidification of oxygen nasal saline spray Thank you for consultation, Clifford Wyatt MD FACS
[2016-09-29] MEDS: LACTOBACILLUS ACIDOPHILUS 1 EACH TAB (FP) GT SCH (21:47)
[2016-09-30] MEDS: clonazePAM 0.5 MG TABLET GT SCH ×3 (05:47→21:46)
[2016-09-30] MEDS: SODIUM CHLORIDE 1,000 ML IV SCH (05:51)
[2016-09-30 07:19] LABS: MCH 33.8 pg (25.7-33.7); MCHC 34.4 g/dl (32.0-35.9); MEAN CELL VOLUME 98.5 fl (80-96); MEAN PLT VOLUME 9.8 fl (7.5-11.1); PLATELET COUNT 365 K/MM3 (134-434); WHITE BLOOD COUNT 7.8 K/mm3 (4.0-10.0)
[2016-09-30 08:30] LABS: ALBUMIN 2.6 g/dl (3.4-5.0); ALK PHOS 140 U/L (45-117); ANION GAP 9 (8-16); BILIRUBIN,TOTAL 0.4 mg/dL (0.2-1.0); CALCIUM 8.5 mg/dL (8.5-10.1); CO2 27 mmol/L (21-32); CREATININE 0.3 mg/dL (0.7-1.3); GLUCOSE,RANDOM 95 mg/dL (74-106); SGOT/AST 32 U/L (15-37); SGPT/ALT 135 U/L (12-78); TOT PROT 6.5 g/dl (6.4-8.2)
[2016-09-30] MEDS: AMINO ACIDS/PROTEIN HYDROLYS 30 ML LIQUID.PKT PO SCH (08:57)
[2016-09-30] MEDS ORDERED: PT OWN MED DRAWER 7, Y5N ONE ×2 (09:11→21:45)
[2016-09-30] MEDS: MAGNESIUM HYDROX 2400MG/30ML ORAL SUSPENSION 30 ML CUP PO SCH (09:14)
[2016-09-30] MEDS: BACLOFEN 10 MG TABLET (FP) GT SCH ×2 (09:15→21:46)
[2016-09-30] MEDS: RANITIDINE HCL 150 MG/10 ML UNIT-DOSE CUP GT SCH ×2 (09:15→21:46)
[2016-09-30] MEDS: FERROUS GLUC GT SCH (09:17)
[2016-09-30] MEDS: FLUTICASONE PROP 0.05% 16 GM NASAL SPRAY NS SCH (09:17)
[2016-09-30] MEDS: MULTIVIT MINERALS GT SCH (09:17)
[2016-09-30] MEDS: PHENobarbital 20 MG/5 ML UNIT-DOSE CUP GT SCH ×2 (09:18→21:46)
[2016-09-30] MEDS ORDERED: INSULIN (NOVOLOG) ASPART 100 UNITS/ML 10ML VIAL ONE (10:47)
--- NOTE | 2016-09-30 10:58 | PN ---
Progress Note (short form) - Note Progress Note: PULMONARY No fevers recorded off antibiotics. Last Vital Signs Temp Pulse Resp BP Pulse Ox 98.8 F 56 L 22 95/52 96 09/30/16 05:59 09/30/16 05:59 09/30/16 05:59 09/30/16 05:59 09/29/16 20:11 Gen: breathing nonlabored Heart: RRR Lung: decreased breath sounds at the bases Abd: soft, nontender Ext: no edema, contracted CBC, BMP 09/30/16 06:45 09/30/16 06:45 Active Medications Acetaminophen (Tylenol Suppository -) 650 mg SD Q6H PRN PRN Reason: FEVER OR PAIN Last Admin: 09/28/16 06:17 Dose: 650 mg Amino Acids (Prosource No Carb Liquid Pkt) 30 ml PO Q24H [facility] Last Admin: 09/30/16 08:57 Dose: 30 ml Baclofen (Lioresal -) 10 mg GT BID [facility] Last Admin: 09/30/16 09:15 Dose: 10 mg Bisacodyl (Dulcolax Suppository -) 10 mg RC DAILY PRN PRN Reason: CONSTIPATION Last Admin: 09/21/16 04:00 Dose: 10 mg Clonazepam (Klonopin -) 0.5 mg GT TID [facility] Last Admin: 09/30/16 05:47 Dose: 0.5 mg Fluticasone Propionate (Flonase -) 1 - 2 spray NS DAILY [facility] Last Admin: 09/30/16 09:17 Dose: 2 sprays Sodium Chloride (Normal Saline -) 1,000 mls @ 100 mls/hr IV ASDIR [facility] Last Admin: 09/30/16 05:51 Dose: 100 mls/hr Lactobacillus Acidophilus (Bacid -) 1 tab GT HS [facility] Last Admin: 09/29/16 21:47 Dose: 1 tab Magnesium Hydroxide (Milk Of Magnesia -) 20 ml PO DAILY [facility] Last Admin: 09/30/16 09:14 Dose: 20 ml Phenobarbital (Phenobarbital Liquid -) 15 mg GT BID [facility] Last Admin: 09/30/16 09:18 Dose: 15 mg Ranitidine HCl (Zantac Oral Solution -) 75 mg GT BID [facility] Last Admin: 09/30/16 09:15 Dose: 75 mg A/P Pneumonia Mental Retardation Epistaxis Seizure Disorder Asthma - monitoring off antibiotics - aspiration precautions - O2 to keep SPo2 >90% - DVT prophylaxis
--- NOTE | 2016-09-30 11:26 | PN ---
Progress Note (short form) - Note Progress Note: Subjective: The patient was seen and examined at the bedside, he remains non- verbal. Opens eyes to tactile stimuli Tmax 100 Tube feeds restarted yesterday Current Medications Generic Name Dose Route Start Last Admin Trade Name Freq PRN Reason Stop Dose Admin Acetaminophen 650 mg 09/21/16 17:56 09/28/16 06:17 Tylenol Suppository - [place] 650 mg Q6H PRN Administration FEVER OR PAIN Amino Acids 30 ml 09/24/16 08:00 09/29/16 08:43 Prosource No Carb Liquid Pkt PO 30 ml Q24H [facility] Administration Baclofen 10 mg 09/14/16 10:00 09/29/16 09:53 Lioresal - GT 10 mg BID [facility] Administration Bisacodyl 10 mg 09/14/16 00:14 09/21/16 04:00 Dulcolax Suppository - RC 10 mg DAILY PRN Administration CONSTIPATION Cefepime HCl 1 gm 09/25/16 11:15 09/29/16 10:06 Maxipime 1gm Ivpb Pre-Docked IVPB 1 gm BID [facility] Administration Protocol Clonazepam 0.5 mg 09/14/16 06:00 09/29/16 05:23 Klonopin - GT 0.5 mg TID [facility] Administration Fluticasone Propionate 1 - 2 spray 09/14/16 10:00 09/29/16 09:53 Flonase - NS 2 sprays DAILY [facility] Administration Vancomycin HCl 250 mls @ 200 mls/hr 09/25/16 12:00 09/28/16 11:50 Vancomycin (Pre-Docked) IVPB 200 mls/hr DAILY@1200 [facility] Administration Sodium Chloride 1,000 mls @ 100 mls/hr 09/25/16 13:00 09/29/16 08:42 Normal Saline - IV 100 mls/hr ASDIR [facility] Administration Lactobacillus Acidophilus 1 tab 09/14/16 22:00 09/28/16 21:13 Bacid - GT 1 tab HS [facility] Administration Magnesium Hydroxide 20 ml 09/14/16 10:00 09/29/16 09:52 Milk Of Magnesia - PO 20 ml DAILY [facility] Administration Phenobarbital 15 mg 09/14/16 10:00 09/29/16 09:55 Phenobarbital Liquid - GT 15 mg BID [facility] Administration Ranitidine HCl 75 mg 09/14/16 10:00 09/29/16 09:54 Zantac Oral Solution - GT 75 mg BID [facility] Administration Objective: Vital Signs Period Temp Pulse Resp BP Sys/Linares Pulse Ox Last 24 Hr 98.7 F-100.1 F 50-96 18- 98-134/46-64 97-97 Physical Exam GENERAL: NAD, nonverbal LUNGS: CTA bilaterally HEART: RRR, S1S2 ABDOMEN: Soft, nontender, nondistended, normoactive bowel sounds, PEG tube in place. EXTREMITIES: Contracted. 2+ pulses, warm, well-perfused, no edema. NEUROLOGICAL: Nonverbal, unable to follow commands at baseline. SKIN: Warm, dry, normal turgor, cap refill < 3 seconds. CBCD WBC 8.9 K/mm3 (4.0-10.0) 09/28/16 07:00 RBC 2.66 M/mm3 (4.00-5.60) L 09/28/16 07:00 Hgb 9.0 GM/dL (11.7-16.9) L 09/28/16 07:00 Hct 26.5 % (35.4-49) L 09/28/16 07:00 MCV 99.5 fl (80-96) H 09/28/16 07:00 MCHC 33.8 g/dl (32.0-35.9) 09/28/16 07:00 RDW 15.0 % (11.9-15.9) 09/28/16 07:00 Plt Count 306 K/MM3 (134-434) 09/28/16 07:00 MPV 10.0 fl (7.5-11.1) 09/28/16 07:00 CMP Sodium 148 mmol/L (136-145) H 09/29/16 06:30 Potassium 3.7 mmol/L (3.5-5.1) 09/29/16 06:30 Chloride 117 mmol/L (98-107) H 09/29/16 06:30 Carbon Dioxide 23 mmol/L (21-32) 09/29/16 06:30 Anion Gap 8 (8-16) 09/29/16 06:30 BUN 5 mg/dL (7-18) L D 09/29/16 06:30 Creatinine 0.3 mg/dL (0.7-1.3) L D 09/29/16 06:30 Creat Clearance w eGFR > 60 (>60) 09/29/16 06:30 Calcium 7.3 mg/dL (8.5-10.1) L 09/29/16 06:30 Total Bilirubin 0.2 mg/dL (0.2-1.0) D 09/29/16 06:30 AST 47 U/L (15-37) H D 09/29/16 06:30 ALT 161 U/L (12-78) H D 09/29/16 06:30 Alkaline Phosphatase 122 U/L (45-117) H 09/29/16 06:30 Total Protein 5.7 g/dl (6.4-8.2) L 09/29/16 06:30 Albumin 2.3 g/dl (3.4-5.0) L 09/29/16 06:30 Microbiology 09/25/16 10:20 Blood - Peripheral Venous Blood Culture - Preliminary NO GROWTH OBTAINED AFTER 72 HOURS, INCUBATION TO CONTINUE FOR 2 DAYS. 09/25/16 10:35 Blood - Peripheral Venous Blood Culture - Preliminary NO GROWTH OBTAINED AFTER 72 HOURS, INCUBATION TO CONTINUE FOR 2 DAYS. 09/26/16 14:45 Urine - Urine Lane Urine Culture - Final NO GROWTH OBTAINED 09/21/16 20:33 Blood - Peripheral Venous Blood Culture - Final NO GROWTH AFTER 5 DAYS INCUBATION 09/21/16 20:33 Blood - Peripheral Venous Blood Culture - Final NO GROWTH AFTER 5 DAYS INCUBATION 09/21/16 18:13 Urine - Urine - Catheterized Urine Culture - Final NO GROWTH OBTAINED 09/16/16 17:10 Sputum - Aerosol Induced Gram Stain - Final 09/16/16 17:10 Sputum - Aerosol Induced Sputum Culture - Final Pseudomonas Aeruginosa 09/13/16 21:04 Blood - Peripheral Venous Blood Culture - Final NO GROWTH AFTER 5 DAYS INCUBATION 09/13/16 21:04 Blood - Peripheral Venous Blood Culture - Final NO GROWTH AFTER 5 DAYS INCUBATION 09/13/16 22:30 Urine - Urine - Catheterized Urine Culture - Final NO GROWTH OBTAINED Assessment: This is a 21 year old male with PMHx of profound mental retardation , herpes encephalopathy, seizure disorder, asthma who presented to the ED with acute respiratory distress and was found to have pneumonia. Plan: 1) Respiratory: Acute hypoxic respiratory failure 2/2 pseudomonas aeruginosa pneumonia - Improved - Chest CT with patchy groundglass opacification bilaterally possibly related to pulmonary vascular congestion, although diffuse pneumonia cannot be excluded - Baseline temp 95-96 - Completed course of Zosyn Pulmonary vascular congestion - Resolved 2) ID: Recurrent fevers - No clear source noted since pneumonia treated - Tmax 100 - Per neuro, fevers not believed to be of central origin - Continue Vancomycin (09/25-09/29) - Continue Cefepime (09/25-09/29) - Appreciate ID consult 3) Neurology: Herpes encephalopathy - Continue acyclovir Seizure disorder - Continue clonazepam, clobazam, phenobarbital 4) F/E/N: - Restart tube feeds - Discontinue IV fluids - Monitor electrolytes 5) Prophylaxis: - Heparin 5,000u sq tid - Functional quadriplegia 6) Dispo: - Requires continued inpatient care - Possible d/c if remains afebrile 24 hours CODE STATUS: FULL CODE Visit type - Emergency Visit Emergency Visit: Yes ED Registration Date: 09/13/16 Care time: The patient presented to the Emergency Department on the above date and was hospitalized for further evaluation of their emergent condition. - New Patient This patient is new to me today: No - Critical Care Critical Care patient: No
--- NOTE | 2016-09-30 11:47 | PN ---
Progress Note (short form) - Note Progress Note: looks quite comfortable off antibiotics l Vital Signs Period Temp Pulse Resp BP Sys/Linares Pulse Ox Last 24 Hr 98.8 F-99.6 F 52-61 20-22 92-100/47-56 96-96 cor-rrr llungs clear abd soft,nt ext no edema CBC, BMP 09/30/16 06:45 09/30/16 06:45 a/p fevers resolving, if afebrile overnight, would d/c back to [place] please call back if needed d/w hospitalist service multiple developmental delays
[2016-09-30] MEDS: LACTOBACILLUS ACIDOPHILUS 1 EACH TAB (FP) GT SCH (21:46)
[2016-10-01] MEDS: clonazePAM 0.5 MG TABLET GT SCH (05:53)
[2016-10-01] MEDS: AMINO ACIDS/PROTEIN HYDROLYS 30 ML LIQUID.PKT PO SCH (08:30)
[2016-10-01 09:27] LABS: COCKROFT - GAULT 194.1; CREATININE 0.4 mg/dL (0.7-1.3)
--- NOTE | 2016-10-01 09:37 | DS ---
Physical Examination Vital Signs: Vital Signs Temperature 98.0 F 10/01/16 05:47 Pulse Rate 78 10/01/16 05:47 Respiratory Rate 18 10/01/16 05:47 Blood Pressure 96/52 10/01/16 05:47 O2 Sat by Pulse Oximetry (%) 98 09/30/16 21:00 Labs: CBC, BMP 09/30/16 06:45 10/01/16 08:20 Discharge Summary Reason For Visit: PNEUMONIA, SEPSIS Current Active Problems Multiple drug resistant organism (MDRO) culture positive (Acute) Pneumonia (Acute) Sepsis (Acute) Condition: Improved - Instructions Diet, Activity, Other Instructions: Please return to the ED with new, persistent, or worsening symptoms. Please follow-up with your pcp within 1 week. Referrals: Saskia Ace MD [Nurse Practitioner] - 1 Week Disposition: DETENTION FACILITY - Home Medications Comprehensive Discharge Medication List: Ambulatory Orders Acyclovir 200 mg PO BID 06/26/16 Albuterol 0.083% Nebulizer Meron [Ventolin 0.083% Nebulizer Soln -] 1 neb NEB QID 06/26/16 Baclofen 10 mg PO BID 06/26/16 Benzoyl Peroxide 5% Gel - 1 applic TP DAILY 06/26/16 Bisacodyl [Biscolax] 10 mg RC DAILY 06/26/16 Budesonide/Formeterol Fumarate [SYMBICORT 160/4.5mcg -] 1 inh PO BID 06/26/16 Clobazam [Onfi -] 10 mg PO DAILY 06/26/16 Clonazepam [KlonoPIN] 0.5 mg GT TID 06/26/16 Diazepam [Diastat Acudial] 10 mg RC DAILY 06/26/16 Fluticasone Prop 0.05% Nasal [Flonase -] 1 - 2 spray NS DAILY 06/26/16 Fructooligosaccharides/Polydex [Fiber-Stat 15 gm/30 ml Liquid] 15 gm PO DAILY Hydrocolloid Dressing [Duoderm] 1 each TP HS PRN 06/26/16 Ipratropium/Albuterol Sulfate [Iprat-Albut 0.5-3(2.5) mg/3 ml] 3 ml IH Q6H 06/26 Lactobacillus Acidophilus [Acidophilus] 1 each PO HS 06/26/16 Magnesium Hydroxide [Milk of Magnesia] 20 ml PO DAILY 06/26/16 Multivitamin [Poly-Vitamin] 1 each GT DAILY 06/26/16 Phenobarbital 16.2 mg PO BID 06/26/16 Ranitidine HCl [Zantac 75] 75 mg PO BID 06/26/16 Amino Acids/Protein Hydrolys [Prosource No Carb Liquid Pkt] 30 ml PO Q24H packet 10/01/16
[2016-10-01] MEDS ORDERED: PT OWN MED DRAWER 7, Y5N ONE (09:50)
[2016-10-01] MEDS ORDERED: MULTIVITAMINS LIQUID THERAPEUTIC 118 ML BOT GT SCH (10:00)
[2016-10-01 10:06] VITALS: BP 109/69; PULSE 64; TEMP 97.8
[2016-10-01] MEDS: BACLOFEN 10 MG TABLET (FP) GT SCH (10:07)
[2016-10-01] MEDS: FLUTICASONE PROP 0.05% 16 GM NASAL SPRAY NS SCH (10:07)
[2016-10-01] MEDS: PHENobarbital 20 MG/5 ML UNIT-DOSE CUP GT SCH (10:07)
[2016-10-01] MEDS: MAGNESIUM HYDROX 2400MG/30ML ORAL SUSPENSION 30 ML CUP PO SCH (10:08)
[2016-10-01] MEDS: RANITIDINE HCL 150 MG/10 ML UNIT-DOSE CUP GT SCH (10:10)
== END 2016-10-01 11:54 | disposition home or self-care (01) | DRG 720 ==
LOC: JER 19:59 → JERBED 23:36 → J6S 09-14 01:44
PROVIDERS: ADMIT Internal Medicine; ATTEND Registered Nurse
PROC: 05HM33Z Insertion of Infusion Device into Right Internal Jugular Vein, Percutaneous Approach (ICD-10-PCS; 2016-09-25)
PROC: 2Y41X5Z Packing of Nasal Region using Packing Material (ICD-10-PCS; principal; 2016-09-29)
DX: A41.9 Sepsis, unspecified organism (principal); J96.01 Acute respiratory failure with hypoxia; F73 Profound intellectual disabilities; R74.0 Nonspecific elevation of levels of transaminase and lactic acid dehydrogenase [LDH]; J18.9 Pneumonia, unspecified organism; G93.49 Other encephalopathy; R04.0 Epistaxis; G40.909 Epilepsy, unspecified, not intractable, without status epilepticus; J45.909 Unspecified asthma, uncomplicated; R33.9 Retention of urine, unspecified; R53.2 Functional quadriplegia; D72.829 Elevated white blood cell count, unspecified; R00.1 Bradycardia, unspecified; Z16.24 Resistance to multiple antibiotics; G80.9 Cerebral palsy, unspecified
CPT/HCPCS: 36415; 36600; 71010-TC; 71250-TC; 71260-TC; 74177-TC; 76705-TC; 80048; 80053; 80076; 81003; 81015; 82550; 82803; 83605; 83690; 83735; 84100; 84484; 85025; 85027; 85610; 85651; 85730; 86038; 86140; 86850; 86900; 86901; 87040; 87070; 87086; 87186; 87205; 93005; 93010; 94640; 99283-25; G0480; J0475; J1644; J3243; Q9967

== ENCOUNTER 2016-12-31 15:58 | Emergency (ER) | payer OTHER ==
--- NOTE | 2016-12-31 16:27 | PDOC ---
History of Present Illness - General Stated Complaint: FALL Time Seen by Provider: 12/31/16 16:07 - History of Present Illness Initial Comments: Mr. Gale is a 21 year old male resident of [facility] Profound mental retardation, Epilepsy, Asthma, Hypothermia, Herpes encephalitis , who was brought in to the ER this afternoon for evaluation after recent fall. An hour before presentation, he was improperly strapped to his wheelchair and fell forward (unwitnessed) but per the nursing staff that heard the fall, they suspected that he rolled out of the wheel chair onto his face at which point the staff found him on the ground but behaving normally. The only physical abnormality seemed to be some old dried blood around his nares. He continued to behave normally until EMS arrived and they wanted him evaluated for possible head trauma. The patient was seen at [facility] one week prior with a positive RSV and enterovirus test so he is on respiratory precautions and a steroid taper that ends tomorrow. He has remote history of PPD conversion in 2007. He also has history of recent admission (09/24) here for psueudomonal pneumonia. Per the nursing staff, he typically laughs with any verbal stimuli and occasionally jolts his eyes to the back of his head. 12/31/16 16:53 Past History - Past Medical History Allergies/Adverse Reactions: Allergies Allergy/AdvReac Type Severity Reaction Status Date / Time No Known Allergies Allergy Verified 12/31/16 16:57 Home Medications: Ambulatory Orders Acyclovir 400 mg PO BID 06/26/16 Albuterol 0.083% Nebulizer Meron [Ventolin 0.083% Nebulizer Soln -] 1 neb NEB QID PRN 06/26/16 Baclofen 5 mg PO BID 06/26/16 Bisacodyl [Biscolax] 10 mg RC PRN 06/26/16 Clonazepam [KlonoPIN] 0.5 mg GT TID 06/26/16 Diazepam [Diastat Acudial] 7.5 mg RC PRN PRN 06/26/16 Ipratropium/Albuterol Sulfate [Iprat-Albut 0.5-3(2.5) mg/3 ml] 3 ml IH Q6H PRN 06/26/16 Magnesium Hydroxide [Milk of Magnesia] 20 ml PO DAILY 06/26/16 Phenobarbital 45 mg PO BID 06/26/16 Budesonide [Pulmicort 0.5 mg Nebulizer -] 2 neb NEB BID 12/31/16 Fluticasone/Salmeterol [Advair Hfa 115-21 Mcg Inhaler] 1 inh PO BID 12/31/16 Lamotrigine [Lamictal] 125 mg GT BID 12/31/16 Omeprazole Pediatric Solution [Omeprazole Pediatric Oral Solution] 40 mg GT BID 12/31/16 Polyethylene Glycol 3350 [Miralax (For Daily Use) -] 17 gm GT DAILY 12/31/16 Asthma: Yes GI Disorders: Yes (; DYSPHAGIA) Seizures: Yes (EPILEPSY) - Surgical History Abdominal Surgery: Yes (GT PLACEMENT) - Psycho/Social/Smoking Cessation Hx Anxiety: No Suicidal Ideation: No Smoking Status: No Smoking History: Never smoked Have you smoked in the past 12 months: No Number of Cigarettes Smoked Daily: 0 Hx Alcohol Use: No Drug/Substance Use Hx: No Substance Use Type: None Review of Systems - Review of Systems Able to Perform ROS?: No (Non verbal) *Physical Exam - Physical Exam General Appearance: Yes: Nourished, Appropriately Dressed, Other (Upper extremities flexion contracted with lower extremites contracted to his chest. THis is al per his baseline. ). No: Apparent Distress HEENT: positive: Other (Seems to ocassonally roll eyes superiorly but will also track people when stimulated. Many seretions in his orpharynx. No signs of bruising or bony step-offs on head, neck, face, or nose.) Respiratory/Chest: positive: Other (Transmitted upper respiratory airway sounds. ). negative: Chest Tender Cardiovascular: positive: Regular Rhythm, Regular Rate. negative: Edema, Murmur Gastrointestinal/Abdominal: positive: Normal Bowel Sounds, Flat, Soft, Other (G tube in place without erythema or drainage around site. ). negative: Tender Musculoskeletal: positive: Muscle Spasm, Other (Per above.) Medical Decision Making - Medical Decision Making 21 year old with MR presenting s/p fall but behaving normally with only physical finding of dried blood in nares. Will get CT head, neck, and facial bones to roll out fractures given inability to perform proper physical exam. 12/31/16 17:24 CT head showing what seems to be old cerebellar changes, although impressive amount of brain matter loss (including almost complete liquefaction of the cerebellum). Negative for fractures with an exception of a possible nasal septal fracture vs. chronic deviation. No further workup or imaging needed. Results communicated with the national coverage specialist physician at the [facility] (Dr. De Los Santos) at approximately 19:40 PM. Patient will be discharged to [facility] with return instructions. 12/31/16 19:56 *DC/Admit/Observation/Transfer Diagnosis at time of Disposition: Fall - Discharge Dispostion Disposition: HOME Condition at time of disposition: Improved Admit: No - Patient Instructions Additional Instructions: You were seen for a fall onto your face. We no sign of a new fracture or new damage to your brain. Please return to the ED if you have any behavioral changes over the next few days or other concerning symptoms including unresponsiveness. - Attestations Physician Attestion: Dr. Irena Ruiz attests this note. 12/31/16 20:01
[2016-12-31 17:04] VITALS: BMI 14.7
--- NOTE | 2016-12-31 17:34 | PDOC ---
Attending Attestation - Resident Resident Name: Irena Ruiz - ED Attending Attestation I have performed the following: I have examined & evaluated the patient, The case was reviewed & discussed with the resident, I agree w/resident's findings & plan, Exceptions are as noted - HPI HPI: 12/31/16 17:32 21-year-old male with history of severe MR, seizures, asthma, currently on O2 at 4 L via face mask RSV bronchiolitis presents to the ER after falling out of a wheelchair with resultant facial injuries. As per patient's clinical education coordinator, he is currently at baseline. Patient is nonverbal and noncommunicative at baseline. No other history is provided. - Physicial Exam PE: 12/31/16 17:34 Patient is awake, nonverbal, contracted; patient is noted to have oxygen saturation of 94% on 4 L. Facemask. HEENT: Microcephalic with dysmorphic features; + large amount of oropharyngeal secretions (suctioned); lungs: Tachypneic;; + Extensive rhonchi and upper respiratory sounds transmitted distally; heart: rrr extr: Contractures are noted to upper and lower extremities; neuro: Patient awake, nonverbal, noncommunicative, does not follow commands, no spontaneous movement is appreciated; - Medical Decision Making 12/31/16 17:37 21-year-old male with multiple comorbidities, severe MR, extensive upper and lower extremity contractures presents to the ER after falling out of a wheelchair. Will obtain CT head/cervical spine/face to rule out intracranial hemorrhage/cervical spine fracture/facial fracture. Will reassess. Likely discharge.
[2016-12-31 20:56] VITALS: BP 106/60; PULSE 74; TEMP 98.3
== END 2016-12-31 21:05 ==
LOC: JER 15:58
DX: S09.8XXA Other specified injuries of head, initial encounter (principal); W05.0XXA Fall from non-moving wheelchair, initial encounter; Y93.89 Activity, other specified; Y92.128 Other place in nursing home as the place of occurrence of the external cause; B00.4 Herpesviral encephalitis; F73 Profound intellectual disabilities; G40.909 Epilepsy, unspecified, not intractable, without status epilepticus; Z93.1 Gastrostomy status
CPT/HCPCS: 70450-TC; 70486-TC; 72125-TC; 99282-25

== ENCOUNTER 2017-04-25 12:47 | Inpatient (IN) | payer OTHER ==
--- NOTE | 2017-04-25 13:10 | PDOC ---
Attending Attestation - Resident Resident Name: Marybel Pantoja - ED Attending Attestation I have performed the following: I have examined & evaluated the patient, The case was reviewed & discussed with the resident, I agree w/resident's findings & plan, Exceptions are as noted - HPI HPI: 04/25/17 13:20 22yo M hx severe MR, epilepsy, bronchiolitis, G-tube, asthma on home O2 NC presents from [facility] with respiratory distress since this morning. Staff reports increased WOB. EMS suctioned oropharynx with some improvement in resp distress. History is limited as pt is non verbal. - Physicial Exam PE: 04/25/17 13:21 GENERAL: Awake, in no acute distress HEAD: No signs of trauma ENT: Auricles normal inspection, oropharynx clear without exudates. Moist mucosa LUNGS: diffuse course BS b/l, mild exp wheezing, tachypneic to 40 HEART: Regular rate and rhythm, normal S1 and S2, no murmurs, rubs or gallops ABDOMEN: Soft, nontender, no distention EXTREMITIES: +contracted x 4 NEUROLOGICAL: non verbal, smiles at cider maker SKIN: Warm, Dry, normal turgor, no rashes or lesions noted. - Medical Decision Making 04/25/17 13:47 22-year-old male with a history of herpes encephalitis and developmental delay presents with resp distress. In the emergency department, the patient is tachycardic to the 120s and tachypnea to the 40s. Lung sounds are concerning for coarse breath sounds and some wheezing. He is rectally febrile to 101.3. Concern for sepsis, with PNA as possible source. Will put the patient on BiPAP ( he is on BiPAP daily at [place] at night and for 2 hours during the day). Code status discussed with [place], pt is full code. Will cover with abx broadly. 04/25/17 17:11 CXR with diffuse infiltrates. Pt is too altered for bipap, currently satting 95 % on ventimask 35%. Pt suctioned frequently by respiratory. ABG wnl. Pt accepted to ICU for further management.
--- NOTE | 2017-04-25 13:11 | PDOC ---
History of Present Illness - General Chief Complaint: Respiratory Stated Complaint: DIFFICULT BREATHING Time Seen by Provider: 04/25/17 12:49 - History of Present Illness Initial Comments: 04/25/17 13:02 21yo young man, resident of [place], with PMH of Herpes encephalitis, severe MR , seizures, asthma, on home 4L NC O2 and BiPAP (12-2pm and o/n) who presents with tachypnea and increase work of breathing. Patient is nonverbal at baseline. Per patient's ob/gyn nurse, he was at his baseline state of health until this AM when he was noted to have fever to 99.5 (normally hypothermic), and was given Tylenol. Later while receiving G-tube feeds he was observed to be tachypneic with audible wet sounding gurgling and abdominal breathing. He was given 1x duo neb. EMS was called. Feeds were d/c and oral pharynx was suctioned. Past History - Past Medical History Allergies/Adverse Reactions: Allergies Allergy/AdvReac Type Severity Reaction Status Date / Time No Known Allergies Allergy Verified 04/25/17 12:51 Home Medications: Ambulatory Orders Acyclovir 400 mg GT BID 04/25/17 Baclofen 10 mg GT BID 04/25/17 Benzoyl Peroxide 5% Gel - 1 applic TP BID 04/25/17 Budesonide/Formeterol Fumarate [SYMBICORT 160/4.5mcg -] 1 inh PO BID 04/25/17 Clobazam [Onfi -] 5 mg GT DAILY 04/25/17 Clonazepam 1.5 mg GT TID 04/25/17 Diazepam Rectal Gel [Diastat *Rectal Gel*] 10 mg RC PRN PRN 04/25/17 Fluticasone Propionate [Flovent Diskus] 50 mcg IH DAILY 04/25/17 Fructooligosaccharides/Polydex [Fiber-Stat 15 gm/30 ml Liquid] 15 gm GT DAILY Ipratropium/Albuterol Sulfate [Iprat-Albut 0.5-3(2.5) mg/3 ml] 3 ml IH Q6H 04/25 Lactobacillus Acidophilus [Acidophilus] 1 each GT HS 04/25/17 Lamotrigine 200 mg GT BID 04/25/17 Magnesium Hydrox 2400MG/30Ml [Milk of Magnesia -] 20 ml GT BID 04/25/17 Multivitamin [Poly-Vitamin] 1 each GT DAILY 04/25/17 Phenobarbital 48.6 mg GT BID 04/25/17 Ranitidine [Zantac -] 75 mg GT BID 04/25/17 Asthma: Yes COPD: No GI Disorders: Yes (DYSPHAGIA. CONSTIPATION. GERD.) Seizures: Yes (EPILEPSY) Other medical history: INFANTILE CP. PROFOUND MR. - Surgical History Abdominal Surgery: Yes (GT PLACEMENT) - Suicide/Smoking/Psychosocial Hx Smoking Status: No Smoking History: Never smoked Have you smoked in the past 12 months: No Number of Cigarettes Smoked Daily: 0 Hx Alcohol Use: No Drug/Substance Use Hx: No Substance Use Type: None *Physical Exam - Vital Signs Last Vital Signs Temp Pulse Resp BP Pulse Ox 126 H 22 106/65 95 04/25/17 12:48 04/25/17 12:48 04/25/17 12:48 04/25/17 12:48 - Physical Exam General Appearance: Yes: Nourished, Appropriately Dressed, Moderate Distress Respiratory/Chest: positive: Accessory Muscle Use, Labored Respiration, Rapid RR , Rhonchi, Wheezing (expiratory ) Cardiovascular: positive: Regular Rate, S1, S2, Tachycardia Gastrointestinal/Abdominal: positive: Soft, Other (G tube insertion site intact , no induration or erythema). negative: Tender, Distended, Guarding, Rebound Extremity: positive: Other (bilateral lower extremities contracted) Neurologic: positive: Alert ED Treatment Course - LABORATORY CBC & Chemistry Diagram: 04/25/17 14:41 04/25/17 14:41 Medical Decision Making - Medical Decision Making 04/25/17 14:55 22yo [place] resident who presents to the ED tachycardic to 120's, tachypneic to 40's with accessory muscle use. Rectal temperature 101.3 (s/p Tylenol at ~7AM ). Physical exam notable for coarse breath sounds and expiratory wheezing. Overall, concerned for sepsis likely 2/2 to pulmonary source. Will cover patient for HCAP with Vanc/Zosyn and initiate sepsis work-up. Case discussed with Anjelica Ace NP ([phone]) covering provider at [place]. She confirmed that patient is Full code. Patient initially placed on BiPAP with settings 16/8, 30% FiO2, RR 12. with improvement of RR to 17. However, pt started to have productive cough, and was placed on Ventimask 35%. 04/25/17 15:38 CBC, BMP 04/25/17 14:41 04/25/17 14:41 Labs notable for leukocytosis to 14.9. Lactate 1.7. Troponin negative; UA negative 04/25/17 15:43 Patient satting at 89% on Ventimask 35% with RR in 40's. Patient having intermittent cough and requiring frequent suctioning. Will order ABG. 04/25/17 16:23 ABG Results ABG pH 7.38 (7.35-7.45) 04/25/17 15:49 ABG pCO2 at Pt Temp 41.5 mmHg (35-45) 04/25/17 15:49 ABG pO2 at Pt Temp 88.3 mmHg (80-100) D 04/25/17 15:49 ABG HCO3 24.0 meq/L (22-26) 04/25/17 15:49 ABG O2 Sat (Measured) 96.4 % (90-98.9) 04/25/17 15:49 ABG O2 Content 18.2 % vol (15-22) 04/25/17 15:49 ABG Base Excess -0.6 meq/l (-2-2) 04/25/17 15:49 ABG (on Venti 50%) is reassuring, however patient continues have oral secretions and productive cough. RSV and Influenza A&B negative. Case discussed with ACNP Car Mcelroy and Dr. oNlan. Patient will be admitted to ICU. 04/25/17 17:00 *DC/Admit/Observation/Transfer Diagnosis at time of Disposition: Sepsis, Acute and chronic respiratory failure with hypoxia, HCAP (healthcare- associated pneumonia) - Discharge Dispostion Condition at time of disposition: Stable Admit: Yes - Referrals Referrals: Jose Luis Valentino Jr [Primary Care Provider] - - Patient Instructions - Post Discharge Activity
[2017-04-25] MEDS ORDERED: ALBUTEROL SO4 2.5/IPRATROPIUM 0.5 INH SOL 3 ML VIAL.NEB. NEB ONE ×2 (13:33→14:13)
[2017-04-25] MEDS ORDERED: SODIUM CHLORIDE 0.9% 1000 ML INFUS.BAG IV STA (13:40)
[2017-04-25] MEDS ORDERED: SODIUM CHLORIDE 0.9% 1000 ML INFUS.BAG IV PRN (13:40)
[2017-04-25] MEDS ORDERED: ACETAMINOPHEN 1000 MG/100 ML VIAL (NON FORMULARY) IVPB ONE (13:51)
[2017-04-25] MEDS ORDERED: PIPERACILLIN/TAZOB 3.375 GM/50 ML PRE-DOCKED IVPB ONE (14:00)
[2017-04-25] MEDS ORDERED: VANCOMYCIN 1 GRAM (PRE-DOCKED) 1,000 MG/250 ML BAG IVPB ONE (14:13)
[2017-04-25] MEDS ORDERED: ACETAMINOPHEN INJECTION 100 ML IVPB ONE (14:13)
[2017-04-25] MEDS ORDERED: PIPERACILLIN/TAZOB 3.375 GM 3.375 GM/50 ML BAG IVPB ONE (14:14)
[2017-04-25 15:09] LABS: VENOUS BLOOD GAS HCO3 27.3 meq/L (19-25); VENOUS PH 7.36 (7.32-7.42)
[2017-04-25 15:10] LABS: BASO % 0.1 % (0-2.0)
[2017-04-25 15:15] LABS: EOS % 0.9 % (0-4.5); MCH 32.2 pg (25.7-33.7); MCHC 33.7 g/dl (32.0-35.9); MEAN CELL VOLUME 95.6 fl (80-96); NEUT % 85.1 % (42.8-82.8); PLATELET COUNT 166 K/MM3 (134-434); RDW 16.6 % (11.9-15.9); WHITE BLOOD COUNT 14.9 K/mm3 (4.0-10.0)
[2017-04-25 15:29] LABS: ALBUMIN 3.6 g/dl (3.4-5.0); ANION GAP 6 (8-16); CALCIUM 8.8 mg/dL (8.5-10.1); CO2 28 mmol/L (21-32); CREATININE 0.6 mg/dL (0.7-1.3); GLUCOSE,RANDOM 79 mg/dL (74-106); SGPT/ALT 59 U/L (12-78)
[2017-04-25 15:30] LABS: URINE APPEARANCE CLOUDY; URINE BILIRUBIN NEGATIVE (NEGATIVE); URINE BLOOD NEGATIVE (NEGATIVE); URINE COLOR YELLOW; URINE GLUCOSE (UA) NEGATIVE (NEGATIVE); URINE KETONE NEGATIVE (NEGATIVE); URINE LEUK ESTERASE NEGATIVE (NEGATIVE); URINE NITRITE NEGATIVE (NEGATIVE); URINE PROTEIN NEGATIVE (NEGATIVE); URINE UROBILINOGEN NEGATIVE mg/dL (0.2-1.0)
[2017-04-25 15:33] LABS: ALK PHOS 244 U/L (45-117); BILIRUBIN,TOTAL 0.3 mg/dL (0.2-1.0); TOT PROT 8.6 g/dl (6.4-8.2); TROPONIN I < 0.02 ng/ml (0.00-0.05)
[2017-04-25 15:34] LABS: SGOT/AST 65 U/L (15-37)
[2017-04-25 15:35] LABS: CPK 294 IU/L (39-308)
[2017-04-25] MEDS ORDERED: VANCOMYCIN 1,000 MG in DEXTROSE 5%-WATER - 250 ML IVPB ONE (15:37)
[2017-04-25 15:47] LABS: INR 1.15 (0.82-1.09)
[2017-04-25 15:50] LABS: ACTIVATED PTT 35.1 SECONDS (26.9-34.4)
[2017-04-25 16:16] LABS: ARTERIAL BLD GAS O2 SATURATION 96.4 % (90-98.9); ARTERIAL BLOOD GAS BASE EXCESS -0.6 meq/l (-2-2); ARTERIAL BLOOD GAS PO2 88.3 mmHg (80-100); ARTERIAL BLOOD GAS pH 7.38 (7.35-7.45)
--- NOTE | 2017-04-25 18:19 | HP ---
CHIEF COMPLAINT: Cough PCP: Dr. Valentino HISTORY OF PRESENT ILLNESS: This is a 22 year old male with PMHx of profound mental retardation, herpes encephalopathy, seizure disorder, asthma (on home O2 via NC), who presented to the ED with acute respiratory distress, fever, cough. The patient's adult caregiver and notes from RN at [facility] the patient was at baseline healthwise this morning until about 10am when the patient was found to be tachypneic with fever of 99.5 (baseline temp is 95-96) during tube feeds. He was also found to have thick yellowish sputum. ER course was notable for: (1) WBC 14.9 (2) Temp 101.5, pulse 126, BP 106/65, resp 36 (3) Chest x-ray pending read Recent Travel: no PAST MEDICAL HISTORY: as above Social History: Smoking: no Alcohol: no Drugs: no Family History: Allergies No Known Allergies Allergy (Verified 04/25/17 12:51) HOME MEDICATIONS: Home Medications Medication Instructions Recorded Acyclovir 400 mg GT BID 04/25/17 Baclofen 10 mg GT BID 04/25/17 Benzoyl Peroxide 5% Gel - 1 applic TP BID 04/25/17 Budesonide/Formeterol Fumarate 1 inh PO BID 04/25/17 [SYMBICORT 160/4.5mcg -] Clobazam [Onfi -] 5 mg GT DAILY 04/25/17 Clonazepam 1.5 mg GT TID 04/25/17 Diazepam Rectal Gel [Diastat 10 mg RC PRN PRN 04/25/17 *Rectal Gel*] Fluticasone Propionate [Flovent 50 mcg IH DAILY 04/25/17 Diskus] Fructooligosaccharides/Polydex 15 gm GT DAILY 04/25/17 [Fiber-Stat 15 gm/30 ml Liquid] Ipratropium/Albuterol Sulfate 3 ml IH Q6H 04/25/17 [Iprat-Albut 0.5-3(2.5) mg/3 ml] Lactobacillus Acidophilus 1 each GT HS 04/25/17 [Acidophilus] Lamotrigine 200 mg GT BID 04/25/17 Magnesium Hydrox 2400MG/30Ml [Milk 20 ml GT BID 04/25/17 of Magnesia -] Multivitamin [Poly-Vitamin] 1 each GT DAILY 04/25/17 Phenobarbital 48.6 mg GT BID 04/25/17 Ranitidine [Zantac -] 75 mg GT BID 04/25/17 REVIEW OF SYSTEMS (obtained from chart review) CONSTITUTIONAL: Fever HEENT: Absent: rhinorrhea, nasal congestionthroat swelling, difficulty swallowing, mouth swelling CARDIOVASCULAR: Absent: irregular heart rate, peripheral edema RESPIRATORY: +cough with greenish sputum. Labored breathing that began this morning. Absent: wheezing, stridor, hemoptysis GASTROINTESTINAL:Absent: abdominal distension, vomiting, diarrhea, constipation , melena, hematochezia GENITOURINARY: Absent: hematuria MUSCULOSKELETAL: Absent: joint swelling SKIN: Absent: rash, itching, pallor HEMATOLOGIC/IMMUNOLOGIC: Absent: easy bleeding, easy bruising, lymphadenopathy NEUROLOGIC: Absent: mental status changes PHYSICAL EXAMINATION Vital Signs - 24 hr 04/25/17 04/25/17 04/25/17 12:48 13:25 14:00 Temperature 101.5 F H 101.5 F H Pulse Rate 126 H Pulse Rate [ 133 H Apical] Respiratory 22 30 H Rate Blood Pressure 106/65 Blood Pressure 110/80 [Right Arm] O2 Sat by Pulse 95 100 100 Oximetry (%) 04/25/17 04/25/17 04/25/17 15:39 15:47 15:51 Temperature Pulse Rate Pulse Rate [ 129 H 125 H Apical] Respiratory 32 H 40 H 40 H Rate Blood Pressure Blood Pressure 109/84 105/78 [Right Arm] O2 Sat by Pulse 98 88 L 95 Oximetry (%) 04/25/17 16:59 Temperature 100.3 F H Pulse Rate Pulse Rate [ 115 H Apical] Respiratory 38 H Rate Blood Pressure Blood Pressure 105/68 [Right Arm] O2 Sat by Pulse 95 Oximetry (%) GENERAL: Awake, alert, non-verbal, severe MR HEAD: Normal with no signs of trauma. EYES: Strabismus, right deviation. reactive to light, extraocular movements intact, sclera anicteric, conjunctiva clear. No lid lag. EARS, NOSE, THROAT: Thick green sputum around mouth and oropharynx NECK: Decreased ROM LUNGS: Tachypnic, rhonchus breath sounds bilaterally HEART: Tachycardia, S1S2 ABDOMEN: + PEG tube. Soft, nontender, not distended, normoactive bowel sounds, no guarding, no rebound, no masses. EXTREMITIES: Contracted NEUROLOGICAL: Non verbal at baseline PSYCHIATRIC: Uncooperative, no eye contact SKIN: Warm, dry, normal turgor, no rashes or lesions noted, normal capillary refill. Laboratory Results - last 24 hr 04/25/17 04/25/17 04/25/17 14:20 14:20 14:41 WBC 14.9 H D RBC 4.46 D Hgb 14.4 D Hct 42.6 D MCV 95.6 MCH 32.2 MCHC 33.7 RDW 16.6 H D Plt Count 166 D MPV 11.0 D Neutrophils % 85.1 H D Lymphocytes % 8.0 D Monocytes % 5.9 Eosinophils % 0.9 D Basophils % 0.1 PT with INR INR PTT (Actin FS) ABG pH ABG pCO2 at Pt Temp ABG pO2 at Pt Temp ABG HCO3 ABG O2 Sat (Measured) ABG O2 Content ABG Base Excess VBG pH 7.36 POC VBG pCO2 49.7 POC VBG pO2 52.9 H D Mixed VBG HCO3 27.3 H Sodium Potassium Chloride Carbon Dioxide Anion Gap BUN Creatinine Creat Clearance w eGFR Random Glucose Lactic Acid 1.7 Calcium Total Bilirubin AST ALT Alkaline Phosphatase Creatine Kinase Creatine Kinase Index CK-MB (CK-2) Troponin I Total Protein Albumin Urine Color Urine Appearance Urine pH Ur Specific Burley Urine Protein Urine Glucose (UA) Urine Ketones Urine Blood Urine Nitrite Urine Bilirubin Urine Urobilinogen 04/25/17 04/25/17 04/25/17 14:41 15:00 15:15 WBC RBC Hgb Hct MCV MCH MCHC RDW Plt Count MPV Neutrophils % Lymphocytes % Monocytes % Eosinophils % Basophils % PT with INR 13.00 H INR 1.15 H PTT (Actin FS) 35.1 H ABG pH ABG pCO2 at Pt Temp ABG pO2 at Pt Temp ABG HCO3 ABG O2 Sat (Measured) ABG O2 Content ABG Base Excess VBG pH POC VBG pCO2 POC VBG pO2 Mixed VBG HCO3 Sodium 133 L Potassium 4.5 Chloride 99 Carbon Dioxide 28 Anion Gap 6 L BUN 17 D Creatinine 0.6 L D Creat Clearance w eGFR > 60 Random Glucose 79 Lactic Acid Calcium 8.8 Total Bilirubin 0.3 D AST 65 H D ALT 59 D Alkaline Phosphatase 244 H D Creatine Kinase 294 Creatine Kinase Index 0.5 CK-MB (CK-2) 1.631 Troponin I < 0.02 Total Protein 8.6 H D Albumin 3.6 D Urine Color Yellow Urine Appearance Cloudy Urine pH 8.0 D Ur Specific Burley 1.020 Urine Protein Negative Urine Glucose (UA) Negative Urine Ketones Negative Urine Blood Negative Urine Nitrite Negative Urine Bilirubin Negative Urine Urobilinogen Negative 04/25/17 15:49 WBC RBC Hgb Hct MCV MCH MCHC RDW Plt Count MPV Neutrophils % Lymphocytes % Monocytes % Eosinophils % Basophils % PT with INR INR PTT (Actin FS) ABG pH 7.38 ABG pCO2 at Pt Temp 41.5 ABG pO2 at Pt Temp 88.3 D ABG HCO3 24.0 ABG O2 Sat (Measured) 96.4 ABG O2 Content 18.2 ABG Base Excess -0.6 VBG pH POC VBG pCO2 POC VBG pO2 Mixed VBG HCO3 Sodium Potassium Chloride Carbon Dioxide Anion Gap BUN Creatinine Creat Clearance w eGFR Random Glucose Lactic Acid Calcium Total Bilirubin AST ALT Alkaline Phosphatase Creatine Kinase Creatine Kinase Index CK-MB (CK-2) Troponin I Total Protein Albumin Urine Color Urine Appearance Urine pH Ur Specific Burley Urine Protein Urine Glucose (UA) Urine Ketones Urine Blood Urine Nitrite Urine Bilirubin Urine Urobilinogen Assessment: This is a 22 year old male with PMHx of profound mental retardation , herpes encephalopathy, seizure disorder, asthma (on home O2 via NC), who presented to the ED with acute respiratory distress, fever, cough. Plan: 1) Sepsis 2/2 likely aspiration pneumonia - F/u blood cultures - F/u urine cultures - RSV negative - Influenza A&B negative - Chest X-ray pending - Continue Vancomycin and Zosyn for now - IV fluids - Hold all tube feeds - F/u ID consult 2) Acute on chronic respiratory failure - ABG normal, however patient remains tachypnic - On Ventimask with O2 96% - May require intubation, closely monitor respiratory status - Duonebs q4h fernando - Transfer to ICU 3) Neurology: Herpes encephalopathy - Continue acyclovir Seizure disorder - Continue clonazepam, clobazam, phenobarbital, lamictal 4) F/E/N: - Hold all tube feeds - IV fluids - Monitor electrolytes 5) Prophylaxis: - Heparin 5,000u sq bid - Functional quadriplegia 6) Dispo: - Requires ICU care CODE STATUS: FULL CODE Visit type - Emergency Visit Emergency Visit: Yes ED Registration Date: 04/25/17 Care time: The patient presented to the Emergency Department on the above date and was hospitalized for further evaluation of their emergent condition. - New Patient This patient is new to me today: Yes Date on this admission: 04/25/17 - Critical Care Critical Care patient: Yes Total Critical Care Time (in minutes): 45 Critical Care Statement: The care of this patient involved high complexity decision making to prevent further life threatening deterioration of the patient 's condition and/or to evaluate & treat vital organ system(s) failure or risk of failure.
[2017-04-25] MEDS ORDERED: diazePAM ACUDIAL 5-7.5-10 MG 1 EACH KIT RC PRN (19:03)
[2017-04-25] MEDS: ALBUTEROL SO4 2.5/IPRATROPIUM 0.5 INH SOL 3 ML VIAL.NEB. NEB SCH ×2 (19:22→22:06)
[2017-04-25 19:25] LABS: URINE LEUK ESTERASE Negative (NEGATIVE)
[2017-04-25] MEDS: SODIUM CHLORIDE 1,000 ML IV SCH (20:20)
[2017-04-25] MEDS: ACETAMINOPHEN 1000 MG/100 ML VIAL (NON FORMULARY) IVPB PRN (20:20)
--- NOTE | 2017-04-25 21:35 | CONSULT ---
Consult Consult Specialty:: Pulm/CCM Reason for Consultation:: Respiratory distress - History of Present Illness Chief Complaint: Tachypnea History of Present Illness: 22yom with PMHx of mental retardation, herpes encephalopathy, seizure disorder, asthma (on home O2 via NC), who was brought to the ED from the [facility] with tachypnea, fever, cough. As per report pt was at his baseline when he became tachypneic with fever of 99.5 during tube feeds. Also with cough with thick yellowish sputum. In ED T 101.5, pulse 126, BP 106/65, resp 36, o2 sat 95% on NC. Labs notable for WBC 14.9, with 85% neuts, lact 1.7. CXR showed dense opacities in lt lung and RML. He was cultured and started on Zosyn and vanco and transferred to ICU for further care. In ICU tachypneic to 30's, HR 130's, BP 97/56, T 102F. Swithched to 50% venti- mask for o2 sat 90%. 1L NS bolus given. 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) - Alcohol/Substance Use Hx Alcohol Use: No - Smoking History Smoking history: Never smoked Have you smoked in the past 12 months: No Aproximately how many cigarettes per day: 0 Home Medications - Allergies Allergies/Adverse Reactions: Allergies Allergy/AdvReac Type Severity Reaction Status Date / Time No Known Allergies Allergy Verified 04/25/17 12:51 - Home Medications Home Medications: Ambulatory Orders Acyclovir 400 mg GT BID 04/25/17 Baclofen 10 mg GT BID 04/25/17 Benzoyl Peroxide 5% Gel - 1 applic TP BID 04/25/17 Budesonide/Formeterol Fumarate [SYMBICORT 160/4.5mcg -] 1 inh PO BID 04/25/17 Clobazam [Onfi -] 5 mg GT DAILY 04/25/17 Clonazepam 1.5 mg GT TID 04/25/17 Diazepam Rectal Gel [Diastat *Rectal Gel*] 10 mg RC PRN PRN 04/25/17 Fluticasone Propionate [Flovent Diskus] 50 mcg IH DAILY 04/25/17 Fructooligosaccharides/Polydex [Fiber-Stat 15 gm/30 ml Liquid] 15 gm GT DAILY Ipratropium/Albuterol Sulfate [Iprat-Albut 0.5-3(2.5) mg/3 ml] 3 ml IH Q6H 04/25 Lactobacillus Acidophilus [Acidophilus] 1 each GT HS 04/25/17 Lamotrigine 200 mg GT BID 04/25/17 Magnesium Hydrox 2400MG/30Ml [Milk of Magnesia -] 20 ml GT BID 04/25/17 Multivitamin [Poly-Vitamin] 1 each GT DAILY 04/25/17 Phenobarbital 48.6 mg GT BID 04/25/17 Ranitidine [Zantac -] 75 mg GT BID 04/25/17 Family Disease History - Family Disease History Family History: Unable to Obtain Review of Systems Unable to obtain ROS, reason: mental retardation Physical Exam Vital Signs: Vital Signs Temperature 98.9 F 04/25/17 18:21 Pulse Rate 115 H 04/25/17 18:21 Respiratory Rate 36 H 04/25/17 18:21 Blood Pressure 98/55 04/25/17 18:21 O2 Sat by Pulse Oximetry (%) 96 04/25/17 18:21 Constitutional: Yes: Mild Distress HENT: Yes: Other Neck: Yes: Trachea Midline Cardiovascular: Yes: Tachycardia, S1, S2 Respiratory: Yes: Cough, On Venti-Mask, Rales Gastrointestinal: Yes: Soft Renal/: Yes: Lane Present Extremities: Yes: Deformity Edema: No Peripheral Pulses WNL: Yes Neurological: Yes: Other (mental retardation) Labs: CBC, BMP 04/25/17 14:41 04/25/17 14:41 CBC,CMP WBC 14.9 K/mm3 (4.0-10.0) H D 04/25/17 14:41 RBC 4.46 M/mm3 (4.00-5.60) D 04/25/17 14:41 Hgb 14.4 GM/dL (11.7-16.9) D 04/25/17 14:41 Hct 42.6 % (35.4-49) D 04/25/17 14:41 MCV 95.6 fl (80-96) 04/25/17 14:41 MCH 32.2 pg (25.7-33.7) 04/25/17 14:41 MCHC 33.7 g/dl (32.0-35.9) 04/25/17 14:41 RDW 16.6 % (11.9-15.9) H D 04/25/17 14:41 Plt Count 166 K/MM3 (134-434) D 04/25/17 14:41 MPV 11.0 fl (7.5-11.1) D 04/25/17 14:41 Neutrophils % 85.1 % (42.8-82.8) H D 04/25/17 14:41 Lymphocytes % 8.0 % (8-40) D 04/25/17 14:41 Monocytes % 5.9 % (3.8-10.2) 04/25/17 14:41 Eosinophils % 0.9 % (0-4.5) D 04/25/17 14:41 Basophils % 0.1 % (0-2.0) 04/25/17 14:41 Sodium 133 mmol/L (136-145) L 04/25/17 14:41 Potassium 4.5 mmol/L (3.5-5.1) 04/25/17 14:41 Chloride 99 mmol/L (98-107) 04/25/17 14:41 Carbon Dioxide 28 mmol/L (21-32) 04/25/17 14:41 Anion Gap 6 (8-16) L 04/25/17 14:41 BUN 17 mg/dL (7-18) D 04/25/17 14:41 Creatinine 0.6 mg/dL (0.7-1.3) L D 04/25/17 14:41 Creat Clearance w eGFR > 60 (>60) 04/25/17 14:41 Random Glucose 79 mg/dL (74-106) 04/25/17 14:41 Lactic Acid 1.7 mmol/L (0.4-2.0) 04/25/17 14:20 Calcium 8.8 mg/dL (8.5-10.1) 04/25/17 14:41 Total Bilirubin 0.3 mg/dL (0.2-1.0) D 04/25/17 14:41 AST 65 U/L (15-37) H D 04/25/17 14:41 ALT 59 U/L (12-78) D 04/25/17 14:41 Alkaline Phosphatase 244 U/L (45-117) H D 04/25/17 14:41 Creatine Kinase 294 IU/L (39-308) 04/25/17 14:41 Creatine Kinase Index 0.5 % (0.0-5.0) 04/25/17 14:41 CK-MB (CK-2) 1.631 ng/mL (0.5-3.6) 04/25/17 14:41 Troponin I < 0.02 ng/ml (0.00-0.05) 04/25/17 14:41 Total Protein 8.6 g/dl (6.4-8.2) H D 04/25/17 14:41 Albumin 3.6 g/dl (3.4-5.0) D 04/25/17 14:41 ABG Results ABG pH 7.38 (7.35-7.45) 04/25/17 15:49 ABG pCO2 at Pt Temp 41.5 mmHg (35-45) 04/25/17 15:49 ABG pO2 at Pt Temp 88.3 mmHg (80-100) D 04/25/17 15:49 ABG HCO3 24.0 meq/L (22-26) 04/25/17 15:49 ABG O2 Sat (Measured) 96.4 % (90-98.9) 04/25/17 15:49 ABG O2 Content 18.2 % vol (15-22) 04/25/17 15:49 ABG Base Excess -0.6 meq/l (-2-2) 04/25/17 15:49 Active Medications Acetaminophen (Ofirmev Injection -) 750 mg IVPB Q6H PRN PRN Reason: FEVER OR PAIN Acyclovir (Zovirax Oral Suspension -) 400 mg GT BID [facility] Last Admin: 04/25/17 22:22 Dose: 400 mg Albuterol/Ipratropium (Duoneb -) 1 amp NEB Q4HWA [facility] Last Admin: 04/25/17 22:06 Dose: 1 amp Baclofen (Lioresal -) 10 mg GT BID [facility] Last Admin: 04/25/17 22:22 Dose: 10 mg Chlorhexidine Gluconate (Hibiclens For Decolonization -) 1 applic TP HS [facility] Last Admin: 04/25/17 22:22 Dose: 1 applic Clobazam (Onfi -) 5 mg PO DAILY [facility] Clonazepam (Klonopin -) 1.5 mg GT TID [facility] Last Admin: 04/25/17 22:25 Dose: 1.5 mg Heparin Sodium (Porcine) (Heparin -) 5,000 unit SQ BID [facility] Last Admin: 04/25/17 22:25 Dose: 5,000 unit Piperacillin Sod/Tazobactam (Sod 3.375 gm/ Dextrose) 50 mls @ 100 mls/hr IVPB Q8H-IV JORGE PRN Reason: Protocol Sodium Chloride (Normal Saline -) 1,000 mls @ 100 mls/hr IV ASDIR [facility] Last Admin: 04/25/17 20:20 Dose: 100 mls/hr Lamotrigine (Lamictal -) 200 mg PO BID [facility] Last Admin: 04/25/17 22:22 Dose: 200 mg Mupirocin (Bactroban Ointment (For Decolonization) -) 1 applic NS BID [facility] Stop: 04/30/17 21:59 Last Admin: 04/25/17 22:21 Dose: 1 applic Phenobarbital (Phenobarbital -) 45 mg GT BID [facility] Last Admin: 04/25/17 22:25 Dose: 45 mg Ranitidine HCl (Zantac Oral Solution -) 75 mg GT BID [facility] Last Admin: 04/25/17 22:24 Dose: 75 mg Sodium Chloride (Normal Saline -) 900 ml IV Q20M PRN PRN Reason: MAP<65mm Hg OR SBP <90 Imaging - Results Chest X-ray: Image Reviewed Problem List - Problems (1) Acute and chronic respiratory failure with hypoxia Code(s): J96.21 - ACUTE AND CHRONIC RESPIRATORY FAILURE WITH HYPOXIA (2) HCAP (healthcare-associated pneumonia) Code(s): J18.9 - PNEUMONIA, UNSPECIFIED ORGANISM (3) Sepsis Code(s): A41.9 - SEPSIS, UNSPECIFIED ORGANISM (4) Elevated alkaline phosphatase level Code(s): R74.8 - ABNORMAL LEVELS OF OTHER SERUM ENZYMES (5) Gram-negative pneumonia Code(s): J15.6 - PNEUMONIA DUE TO OTHER GRAM-NEGATIVE BACTERIA (6) Lactic acidosis Code(s): E87.2 - ACIDOSIS Assessment/Plan 22yom with PMHx of mental retardation, herpes encephalopathy, seizure disorder, asthma (on home O2 via [place]), who was brought to the ED from the [facility] with hypoxic respiratory failure in he setting of HCAP +/- aspiration pneumonia. Plan: -O2 support for O2 sat>925 -Albuterol nebs -Empiric HAP coverage with Azithro, Zosyn and vanco -F/u cultures -Pulm toilet; chest PT -Aspiration precautions -NPO for now -ABG -Low threshold for intubation -Gentle IV fluids -DVT prophylaxis Shelby Javier, BRIAN CC time 35mins
[2017-04-25 21:45] VITALS: BMI 18.3
[2017-04-25] MEDS ORDERED: VANCOMYCIN 1,000 MG in DEXTROSE 5%-WATER - 250 ML IVPB SCH (22:00)
[2017-04-25] MEDS: MUPIROCIN 2% TOPICAL OINTMENT FOR DECOLONIZATION NS SCH (22:21)
[2017-04-25] MEDS: BACLOFEN 10 MG TABLET (FP) GT SCH (22:22)
[2017-04-25] MEDS: ACYCLOVIR 200 MG/5 ML GT SCH (22:22)
[2017-04-25] MEDS: CHLORHEXIDINE GLUCONATE 4% CLEANSER FOR DECOLONIZATION TP SCH (22:22)
[2017-04-25] MEDS: RANITIDINE HCL 150 MG/10 ML UNIT-DOSE GT SCH (22:24)
[2017-04-25] MEDS: PHENobarbital 30 MG TABLET GT SCH (22:25)
[2017-04-25] MEDS: HEPARIN NA (PORCINE) 5,000 UNITS/ML 1ML VIAL SQ SCH (22:25)
[2017-04-25] MEDS: clonazePAM 0.5 MG TABLET GT SCH (22:25)
[2017-04-26] MEDS: PIPERACILLIN/TAZOB 3.375 GM 3.375 GM in DEXTROSE 5%-WATER - 50 ML IVPB SCH ×3 (01:14→16:59)
[2017-04-26] MEDS: SODIUM CHLORIDE 1,000 ML IV SCH ×2 (06:20→22:24)
[2017-04-26] MEDS: clonazePAM 0.5 MG TABLET GT SCH ×3 (06:20→21:34)
[2017-04-26 06:28] LABS: BASO % 0.1 % (0-2.0); EOS % 1.4 % (0-4.5); MCH 32.6 pg (25.7-33.7); MCHC 33.8 g/dl (32.0-35.9); MEAN CELL VOLUME 96.6 fl (80-96); MEAN PLT VOLUME 10.4 fl (7.5-11.1); NEUT % 86.3 % (42.8-82.8); PLATELET COUNT 155 K/MM3 (134-434); RDW 16.5 % (11.9-15.9); WHITE BLOOD COUNT 11.4 K/mm3 (4.0-10.0)
[2017-04-26 06:45] LABS: ALBUMIN 3.2 g/dl (3.4-5.0); ALK PHOS 207 U/L (45-117); ANION GAP 8 (8-16); BILIRUBIN,TOTAL 0.4 mg/dL (0.2-1.0); CALCIUM 8.3 mg/dL (8.5-10.1); CO2 27 mmol/L (21-32); CREATININE 0.6 mg/dL (0.7-1.3); GLUCOSE,RANDOM 79 mg/dL (74-106); MAGNESIUM 2.1 mg/dL (1.8-2.4); PHOSPHOROUS 3.2 mg/dL (2.5-4.9); SGOT/AST 73 U/L (15-37); SGPT/ALT 70 U/L (12-78); TOT PROT 7.4 g/dl (6.4-8.2)
[2017-04-26] MEDS: ALBUTEROL SO4 2.5/IPRATROPIUM 0.5 INH SOL 3 ML VIAL.NEB. NEB SCH ×5 (06:50→21:20)
[2017-04-26] MEDS ORDERED: PT OWN MED DRAWER 7, Y5N ONE (08:48)
--- NOTE | 2017-04-26 09:17 | PN ---
Progress Note (short form) - Note Progress Note: Subjective: The patient was seen and examined at the bedside, he is crying. Remains on ventimask Respiratory status has improved slightly since yesterday Current Medications Generic Name Dose Route Start Last Admin Trade Name Freq PRN Reason Stop Dose Admin Acetaminophen 750 mg 04/25/17 22:41 04/25/17 20:20 Ofirmev Injection - IVPB 750 mg Q6H PRN Administration FEVER OR PAIN Acyclovir 400 mg 04/25/17 22:00 04/25/17 22:22 Zovirax Oral Suspension - GT 400 mg BID JORGE Administration Albuterol/Ipratropium 1 amp 04/25/17 19:00 04/26/17 06:50 Duoneb - NEB 1 amp Q4HWA JORGE Administration Baclofen 10 mg 04/25/17 22:00 04/25/17 22:22 Lioresal - GT 10 mg BID JORGE Administration Chlorhexidine Gluconate 1 applic 04/25/17 22:00 04/25/17 22:22 Hibiclens For Decolonization - TP 1 applic HS JORGE Administration Clobazam 5 mg 04/26/17 10:00 Onfi - PO DAILY JORGE Clonazepam 1.5 mg 04/25/17 22:00 04/26/17 06:20 Klonopin - GT 1.5 mg TID JORGE Administration Heparin Sodium (Porcine) 5,000 unit 04/25/17 22:00 04/25/17 22:25 Heparin - SQ 5,000 unit BID JORGE Administration Piperacillin Sod/Tazobactam 50 mls @ 100 mls/hr 04/26/17 02:00 04/26/17 01:14 Sod 3.375 gm/ Dextrose IVPB 100 mls/hr Q8H-IV JORGE Administration Protocol Sodium Chloride 1,000 mls @ 100 mls/hr 04/25/17 19:00 04/26/17 06:20 Normal Saline - IV 100 mls/hr ASDIR JORGE Administration Lamotrigine 200 mg 04/25/17 22:00 04/25/17 22:22 Lamictal - PO 200 mg BID JORGE Administration Mupirocin 1 applic 04/25/17 22:00 04/25/17 22:21 Bactroban Ointment (For Decolonization) - NS 04/30/17 21:59 1 applic BID JORGE Administration Phenobarbital 45 mg 04/25/17 22:00 04/25/17 22:25 Phenobarbital - GT 45 mg BID JORGE Administration Ranitidine HCl 75 mg 04/25/17 22:00 04/25/17 22:24 Zantac Oral Solution - GT 75 mg BID JORGE Administration Sodium Chloride 900 ml 04/25/17 13:40 Normal Saline - IV Q20M PRN MAP<65mm Hg OR SBP <90 Objective: Vital Signs Period Temp Pulse Resp BP Sys/Linares Pulse Ox Last 24 Hr 98.9 F-102.1 F 96-150 22-40 90-110/47-84 88-100 Physical Exam: CBCD WBC 11.4 K/mm3 (4.0-10.0) H 04/26/17 06:00 RBC 4.04 M/mm3 (4.00-5.60) 04/26/17 06:00 Hgb 13.2 GM/dL (11.7-16.9) 04/26/17 06:00 Hct 39.0 % (35.4-49) 04/26/17 06:00 MCV 96.6 fl (80-96) H 04/26/17 06:00 MCHC 33.8 g/dl (32.0-35.9) 04/26/17 06:00 RDW 16.5 % (11.9-15.9) H 04/26/17 06:00 Plt Count 155 K/MM3 (134-434) 04/26/17 06:00 MPV 10.4 fl (7.5-11.1) 04/26/17 06:00 CMP Sodium 139 mmol/L (136-145) 04/26/17 06:00 Potassium 3.9 mmol/L (3.5-5.1) 04/26/17 06:00 Chloride 104 mmol/L (98-107) 04/26/17 06:00 Carbon Dioxide 27 mmol/L (21-32) 04/26/17 06:00 Anion Gap 8 (8-16) 04/26/17 06:00 BUN 9 mg/dL (7-18) D 04/26/17 06:00 Creatinine 0.6 mg/dL (0.7-1.3) L 04/26/17 06:00 Creat Clearance w eGFR > 60 (>60) 04/26/17 06:00 Random Glucose 79 mg/dL (74-106) 04/26/17 06:00 Calcium 8.3 mg/dL (8.5-10.1) L 04/26/17 06:00 Total Bilirubin 0.4 mg/dL (0.2-1.0) D 04/26/17 06:00 AST 73 U/L (15-37) H 04/26/17 06:00 ALT 70 U/L (12-78) 04/26/17 06:00 Alkaline Phosphatase 207 U/L (45-117) H 04/26/17 06:00 Total Protein 7.4 g/dl (6.4-8.2) 04/26/17 06:00 Albumin 3.2 g/dl (3.4-5.0) L 04/26/17 06:00 CARDIAC ENZYMES Creatine Kinase 294 IU/L (39-308) 04/25/17 14:41 Troponin I < 0.02 ng/ml (0.00-0.05) 04/25/17 14:41 Microbiology 04/25/17 15:40 Nasopharyngeal Swab Respiratory Syncytial Virus Ag - Final 04/25/17 15:40 Nasopharyngeal Swab Influenza Types A,B Antigen (VANCE) - Final 04/25/17 15:40 Nasopharyngeal Swab - Final Imaging: Chest X-ray 04/25: superimposed infiltrate cannot be excluded. Abdominal distention Chest X-ray 04/26: Abdominal distention. Increased right lung markings. Congestive changes with possible retrocardiac infiltrate or atelectasis Assessment: This is a 22 year old male with PMHx of profound mental retardation , herpes encephalopathy, seizure disorder, asthma (on home O2 via NC), who presented to the ED with acute respiratory distress, fever, cough. Plan: 1) Sepsis 2/2 likely aspiration pneumonia - F/u blood cultures - F/u urine cultures - RSV negative - Influenza A&B negative - Vancomycin given in ED (04/25) - Continue Zosyn (04/25- ) - Started on Azithromycin (04/26- ) - IV fluids - Hold all tube feeds - F/u ID consult 2) Acute on chronic respiratory failure - ABG with no respiratory acidosis - On Ventimask with O2 96% - Low threshold for intubation - Duonebs q4h [facility] - Appreciate critical care consult 3) Neurology: Herpes encephalopathy - Continue acyclovir Seizure disorder - Continue clonazepam, clobazam, phenobarbital, lamictal 4) F/E/N: - Hold all tube feeds - IV fluids - Monitor electrolytes 5) Prophylaxis: - Heparin 5,000u sq bid - Functional quadriplegia 6) Dispo: - Requires ICU care CODE STATUS: FULL CODE Visit type - Emergency Visit Emergency Visit: Yes ED Registration Date: 04/25/17 Care time: The patient presented to the Emergency Department on the above date and was hospitalized for further evaluation of their emergent condition. - New Patient This patient is new to me today: No - Critical Care Critical Care patient: Yes Total Critical Care Time (in minutes): 45 Critical Care Statement: The care of this patient involved high complexity decision making to prevent further life threatening deterioration of the patient 's condition and/or to evaluate & treat vital organ system(s) failure or risk of failure.
--- NOTE | 2017-04-26 09:23 | PN ---
Progress Note (short form) - Note Progress Note: ID consult dictated HCAP Possible sepsis secondary to pneumonia Profound MR pending sepsis workup empiric zosyn/ zithromax
[2017-04-26] MEDS: ACYCLOVIR 200 MG/5 ML GT SCH ×2 (09:50→22:24)
[2017-04-26] MEDS: RANITIDINE HCL 150 MG/10 ML UNIT-DOSE GT SCH ×2 (09:51→21:33)
[2017-04-26] MEDS: HEPARIN NA (PORCINE) 5,000 UNITS/ML 1ML VIAL SQ SCH ×2 (09:51→21:33)
[2017-04-26] MEDS: BACLOFEN 10 MG TABLET (FP) GT SCH ×2 (09:52→22:24)
[2017-04-26] MEDS: PHENobarbital 30 MG TABLET GT SCH ×2 (09:53→21:34)
--- NOTE | 2017-04-26 10:15 | PN ---
Progress Note (short form) - Note Progress Note: PULM/CCM Pt seen and examined in ICU 24Hr: slightly improved resp status and CXR decreased temp curve on PT. michelle remains on venti mask Vital Signs Temp 100 F H 04/26/17 06:00 Pulse 104 H 04/26/17 08:00 Resp 24 04/26/17 08:00 BP 120/57 04/26/17 08:00 Pulse Ox 94 L 04/25/17 22:06 Intake & Output 04/25/17 04/25/17 04/26/17 11:59 23:59 11:59 Intake Total 1100 Balance 1100 Weight 43.998 kg 44.86 kg Intake: IV 1100 Normal Saline - 1,000 ml 1100 @ 100 mls/hr IV ASDIR JORGE Rx#:[id number] Other: Voiding Method Incontinent # Unmeasured Voids Void 2 2 Height 5 ft 1 in Body Mass Index (BMI) 18.3 Weight Measurement Method [facility] Measurement Method Estimated by Staff Active Medications Acetaminophen (Ofirmev Injection -) 750 mg IVPB Q6H PRN PRN Reason: FEVER OR PAIN Last Admin: 04/25/17 20:20 Dose: 750 mg Acyclovir (Zovirax Oral Suspension -) 400 mg GT BID [facility] Last Admin: 04/26/17 09:50 Dose: 400 mg Albuterol/Ipratropium (Duoneb -) 1 amp NEB Q4HWA [facility] Last Admin: 04/26/17 06:50 Dose: 1 amp Baclofen (Lioresal -) 10 mg GT BID [facility] Last Admin: 04/26/17 09:52 Dose: 10 mg Chlorhexidine Gluconate (Hibiclens For Decolonization -) 1 applic TP HS [facility] Last Admin: 04/25/17 22:22 Dose: 1 applic Clobazam (Onfi -) 5 mg PO DAILY [facility] Clonazepam (Klonopin -) 1.5 mg GT TID [facility] Last Admin: 04/26/17 06:20 Dose: 1.5 mg Heparin Sodium (Porcine) (Heparin -) 5,000 unit SQ BID JORGE Last Admin: 04/26/17 09:51 Dose: 5,000 unit Piperacillin Sod/Tazobactam (Sod 3.375 gm/ Dextrose) 50 mls @ 100 mls/hr IVPB Q8H-IV JORGE PRN Reason: Protocol Last Admin: 04/26/17 01:14 Dose: 100 mls/hr Sodium Chloride (Normal Saline -) 1,000 mls @ 100 mls/hr IV ASDIR JORGE Last Admin: 04/26/17 06:20 Dose: 100 mls/hr Azithromycin 250 mg/ Dextrose 250 mls @ 250 mls/hr IVPB DAILY JORGE Lamotrigine (Lamictal -) 200 mg PO BID JORGE Last Admin: 04/26/17 09:53 Dose: 200 mg Mupirocin (Bactroban Ointment (For Decolonization) -) 1 applic NS BID JORGE Stop: 04/30/17 21:59 Last Admin: 04/25/17 22:21 Dose: 1 applic Phenobarbital (Phenobarbital -) 45 mg GT BID JORGE Last Admin: 04/26/17 09:53 Dose: 45 mg Ranitidine HCl (Zantac Oral Solution -) 75 mg GT BID [facility] Last Admin: 04/26/17 09:51 Dose: 75 mg Sodium Chloride (Normal Saline -) 900 ml IV Q20M PRN PRN Reason: MAP<65mm Hg OR SBP <90 CBCD WBC 11.4 K/mm3 (4.0-10.0) H 04/26/17 06:00 RBC 4.04 M/mm3 (4.00-5.60) 04/26/17 06:00 Hgb 13.2 GM/dL (11.7-16.9) 04/26/17 06:00 Hct 39.0 % (35.4-49) 04/26/17 06:00 MCV 96.6 fl (80-96) H 04/26/17 06:00 MCHC 33.8 g/dl (32.0-35.9) 04/26/17 06:00 RDW 16.5 % (11.9-15.9) H 04/26/17 06:00 Plt Count 155 K/MM3 (134-434) 04/26/17 06:00 MPV 10.4 fl (7.5-11.1) 04/26/17 06:00 CMP Sodium 139 mmol/L (136-145) 04/26/17 06:00 Potassium 3.9 mmol/L (3.5-5.1) 04/26/17 06:00 Chloride 104 mmol/L (98-107) 04/26/17 06:00 Carbon Dioxide 27 mmol/L (21-32) 04/26/17 06:00 Anion Gap 8 (8-16) 04/26/17 06:00 BUN 9 mg/dL (7-18) D 04/26/17 06:00 Creatinine 0.6 mg/dL (0.7-1.3) L 04/26/17 06:00 Creat Clearance w eGFR > 60 (>60) 04/26/17 06:00 Random Glucose 79 mg/dL (74-106) 04/26/17 06:00 Calcium 8.3 mg/dL (8.5-10.1) L 04/26/17 06:00 Total Bilirubin 0.4 mg/dL (0.2-1.0) D 04/26/17 06:00 AST 73 U/L (15-37) H 04/26/17 06:00 ALT 70 U/L (12-78) 04/26/17 06:00 Alkaline Phosphatase 207 U/L (45-117) H 04/26/17 06:00 Total Protein 7.4 g/dl (6.4-8.2) 04/26/17 06:00 Albumin 3.2 g/dl (3.4-5.0) L 04/26/17 06:00 CARDIAC ENZYMES Creatine Kinase 294 IU/L (39-308) 04/25/17 14:41 Troponin I < 0.02 ng/ml (0.00-0.05) 04/25/17 14:41 PE: Neuro: severe MR, no in acute distress, contracted HEENT: PERRL, EOMI, protuberent glottis PULM: coarse rhonchi L> R ABD: PEG CDI EXT; contracted CXR revieed Problem List - Problems (1) Acute and chronic respiratory failure with hypoxia Code(s): J96.21 - ACUTE AND CHRONIC RESPIRATORY FAILURE WITH HYPOXIA (2) HCAP (healthcare-associated pneumonia) Code(s): J18.9 - PNEUMONIA, UNSPECIFIED ORGANISM (3) Sepsis Code(s): A41.9 - SEPSIS, UNSPECIFIED ORGANISM (4) Elevated alkaline phosphatase level Code(s): R74.8 - ABNORMAL LEVELS OF OTHER SERUM ENZYMES (5) Gram-negative pneumonia Code(s): J15.6 - PNEUMONIA DUE TO OTHER GRAM-NEGATIVE BACTERIA (6) Lactic acidosis Code(s): E87.2 - ACIDOSIS Microbiology 04/25/17 15:40 Nasopharyngeal Swab Respiratory Syncytial Virus Ag - Final 04/25/17 15:40 Nasopharyngeal Swab Influenza Types A,B Antigen (VNACE) - Final 04/25/17 15:40 Nasopharyngeal Swab - Final Assessment/Plan 22yom with PMHx of mental retardation, herpes encephalopathy, seizure disorder, asthma (on home O2 via NC), who was brought to the ED from the [facility] with hypoxic respiratory failure in he setting of HCAP +/- aspiration pneumonia. Plan: -O2 support for O2 sat>925 -Albuterol nebs -Empiric HAP coverage with Azithro, Zosyn -F/u cultures -cont standing acyclovir -Pulm toilet; chest PT -Aspiration precautions -start TF -ABG prn -wean fio2 -Gentle IV fluids -DVT prophylaxis Iglesia Matute ACNP [id number]
[2017-04-26] MEDS: cloBAZam 10 MG TABLET PO SCH (12:01)
[2017-04-26] MEDS: MUPIROCIN 2% TOPICAL OINTMENT FOR DECOLONIZATION NS SCH ×2 (12:01→21:31)
[2017-04-26] MEDS: AZITHROMYCIN IVPB 250 MG in DEXTROSE 5%-WATER - 250 ML IVPB SCH (12:01)
[2017-04-26] MEDS: ACETAMINOPHEN 1000 MG/100 ML VIAL (NON FORMULARY) IVPB PRN (12:25)
[2017-04-26] MEDS ORDERED: ACETAMINOPHEN 325 MG TABLET (FP) PO PRN (12:52)
[2017-04-26] MEDS: CHLORHEXIDINE GLUCONATE 4% CLEANSER FOR DECOLONIZATION TP SCH (21:34)
--- NOTE | 2017-04-26 21:34 | CONS ---
DATE OF CONSULTATION: DATE OF DICTATION: 04/26/2017 The patient is a 22-year-old male, resident of [facility], history of herpes encephalitis with profound mental retardation, evaluated for pneumonia. The patient is nonverbal at baseline. According to the notes at the [facility], he was noted to become increasingly short of breath and febrile. He was audibly congested and was using accessory muscles of respiration. He was transferred to the emergency room, where the patient was tachycardic and tachypneic. His course has been complicated by fever to 102.1. Chest x-ray, although limited, shows increasing markings bilaterally. Cultures were obtained. He was empirically treated with Zosyn and vancomycin. He is unable to give any additional history. He was last hospitalized at [facility] in September of this year. Previous sputum cultures have grown Pseudomonas. He does have secretions, with difficulty expectorating. According to the nurse's notes, he has been continuously coughing up sputum. Past medical history positive for herpes encephalitis with profound mental retardation, seizure disorder, asthma. No known allergies. LABORATORY DATA: White count on admission 14.9, presently 11.4, hematocrit 39.0, platelet count 155. BUN 9, creatinine 0.6. Urine leukocyte esterase negative. Blood and urine cultures pending. Influenza swab negative. PHYSICAL EXAMINATION: General: He is awake. He is short of breath at rest on Ventimask. Vital Signs: Temperature 100, T-max 102.1. Blood pressure 108/47. Pulse 104, regular. Respirations 22 per minute. Eyes: Sclerae anicteric. Heart Sounds: S1, S2. Lungs: Rhonchi bilaterally. Abdomen: Soft. No tenderness elicited. No mass, rebound or rigidity. Extremities: 1+ edema. IMPRESSION: 1. Healthcare-associated pneumonia. 2. Possible sepsis secondary to pneumonia. 3. Leukocytosis. 4. History of profound mental retardation. Await culture results. Obtain sputum culture and urine Legionella/pneumococcal antigen. Empiric antibiotic coverage with Zosyn and Zithromax pending cultures. Respiratory support. Will follow. Thank you for the kind referral. JOSH YOUNG M.D. [id number]
[2017-04-26] MEDS: lamoTRIgine 100 MG TABLET (FP) PO SCH (22:24)
[2017-04-27] MEDS: PIPERACILLIN/TAZOB 3.375 GM 3.375 GM in DEXTROSE 5%-WATER - 50 ML IVPB SCH ×3 (03:00→17:15)
[2017-04-27] MEDS ORDERED: PT OWN MED DRAWER 7, Y5N ONE ×4 (03:59→21:09)
[2017-04-27] MEDS: ALBUTEROL SO4 2.5/IPRATROPIUM 0.5 INH SOL 3 ML VIAL.NEB. NEB SCH ×5 (06:00→22:00)
[2017-04-27] MEDS: clonazePAM 0.5 MG TABLET GT SCH ×3 (06:01→21:18)
[2017-04-27 06:32] LABS: BASO % 0.1 % (0-2.0); EOS % 2.9 % (0-4.5); MCH 33.4 pg (25.7-33.7); MCHC 34.6 g/dl (32.0-35.9); MEAN CELL VOLUME 96.5 fl (80-96); NEUT % 74.1 % (42.8-82.8); PLATELET COUNT 151 K/MM3 (134-434); RDW 16.7 % (11.9-15.9); WHITE BLOOD COUNT 9.7 K/mm3 (4.0-10.0)
[2017-04-27 06:56] LABS: ALBUMIN 2.9 g/dl (3.4-5.0); ANION GAP 8 (8-16); CALCIUM 8.3 mg/dL (8.5-10.1); CO2 27 mmol/L (21-32); GLUCOSE,RANDOM 108 mg/dL (74-106); MAGNESIUM 1.5 mg/dL (1.8-2.4); SGOT/AST 57 U/L (15-37); SGPT/ALT 63 U/L (12-78)
[2017-04-27 06:59] LABS: ALK PHOS 193 U/L (45-117); BILIRUBIN,TOTAL 0.5 mg/dL (0.2-1.0); CREATININE 0.5 mg/dL (0.7-1.3); TOT PROT 7.1 g/dl (6.4-8.2)
--- NOTE | 2017-04-27 07:33 | PN ---
Physical Exam: SUBJECTIVE: Patient seen and examined in ICU. OBJECTIVE: Vital Signs Period Temp Pulse Resp BP Sys/Linares Pulse Ox Last 24 Hr 99 F-100.2 F 74-104 16-30 100-123/46-68 95-97 GENERAL/NEURO: Nonverbal at baseline; not opening eyes to verbal stimuli LUNGS: Rhonchi anterior RUL; tachypnic, minimal accessory muscle use HEART: Tachycardic; regular rate and rhythm, S1, S2 without murmur, rub or gallop. ABDOMEN: PEG in place, surrounding skin intact; tube feeds off EXTREMITIES: contracted x 4; 2+ pulses, warm, well-perfused, no edema. Laboratory Results - last 24 hr 04/27/17 04/27/17 06:15 06:15 WBC 9.7 RBC 3.87 L Hgb 12.9 Hct 37.4 MCV 96.5 H MCH 33.4 MCHC 34.6 RDW 16.7 H Plt Count 151 MPV 10.0 Neutrophils % 74.1 Lymphocytes % 15.6 D Monocytes % 7.3 Eosinophils % 2.9 D Basophils % 0.1 Sodium 139 Potassium 3.6 Chloride 104 Carbon Dioxide 27 Anion Gap 8 BUN 5 L D Creatinine 0.5 L Creat Clearance w eGFR > 60 Random Glucose 108 H D Calcium 8.3 L Phosphorus 3.0 Magnesium 1.5 L D Total Bilirubin 0.5 D AST 57 H D ALT 63 Alkaline Phosphatase 193 H Total Protein 7.1 Albumin 2.9 L Active Medications Generic Name Dose Route Start Last Admin Trade Name Freq PRN Reason Stop Dose Admin Acetaminophen 650 mg 04/26/17 14:11 Tylenol Oral Solution - GT Q6H PRN FEVER OR PAIN Acyclovir 400 mg 04/25/17 22:00 04/26/17 22:24 Zovirax Oral Suspension - GT 400 mg BID JORGE Administration Albuterol/Ipratropium 1 amp 04/25/17 19:00 04/27/17 06:00 Duoneb - NEB 1 amp Q4HWA JORGE Administration Baclofen 10 mg 04/25/17 22:00 04/26/17 22:24 Lioresal - GT 10 mg BID JORGE Administration Chlorhexidine Gluconate 1 applic 04/25/17 22:00 04/26/17 21:34 Hibiclens For Decolonization - TP 1 applic HS JORGE Administration Clobazam 5 mg 04/26/17 10:00 04/26/17 12:01 Onfi - PO 5 mg DAILY JORGE Administration Clonazepam 1.5 mg 04/25/17 22:00 04/27/17 06:01 Klonopin - GT 1.5 mg TID JORGE Administration Heparin Sodium (Porcine) 5,000 unit 04/25/17 22:00 04/26/17 21:33 Heparin - SQ 5,000 unit BID JORGE Administration Piperacillin Sod/Tazobactam 50 mls @ 100 mls/hr 04/26/17 02:00 04/27/17 03:00 Sod 3.375 gm/ Dextrose IVPB 100 mls/hr Q8H-IV JORGE Administration Protocol Sodium Chloride 1,000 mls @ 100 mls/hr 04/25/17 19:00 04/26/17 22:24 Normal Saline - IV 100 mls/hr ASDIR JORGE Administration Azithromycin 250 mg/ Dextrose 250 mls @ 250 mls/hr 04/26/17 10:00 04/26/17 12 :01 IVPB 250 mls/hr DAILY JORGE Administration Lamotrigine 200 mg 04/26/17 22:00 04/26/17 22:24 Lamictal - PO 200 mg BID JORGE Administration Mupirocin 1 applic 04/25/17 22:00 04/26/17 21:31 Bactroban Ointment (For Decolonization) - NS 04/30/17 21:59 1 applic BID JORGE Administration Phenobarbital 45 mg 04/25/17 22:00 04/26/17 21:34 Phenobarbital - GT 45 mg BID JORGE Administration Ranitidine HCl 75 mg 04/25/17 22:00 04/26/17 21:33 Zantac Oral Solution - GT 75 mg BID JORGE Administration Sodium Chloride 900 ml 04/25/17 13:40 Normal Saline - IV Q20M PRN MAP<65mm Hg OR SBP <90 ASSESSMENT/PLAN 22 year-old male with PMH significant for profound mental retardation, herpes encephalopathy, seizure disorder, and asthma on home O2, who presented to the ED with acute respiratory distress, fever, cough. Sepsis likely secondary to aspiration pneumonia --Tm 100.2; leukocytosis resolved --continue azithromycine (day #2) and Zosyn (day #2) --cultures negative to date --ID following Acute on chronic respiratory failure --venti mask or NRB to maintain O2 sats >92% --duonebs Herpes encephalopathy --continue acyclovir Seizure disorder --continue clonazepam, clobazam, phenobarbital, lamictal Hypomagnesemia --repleted Functional quadriplegia --profoundly retarded --extremities shortened and contracted --dependent for all ADLs FEN Fluids: NS @ 100mL/hr Electrolytes: replete as indicated Nutrition: hold tube feeds DVT prophylaxis: subq heparin Dispo: continues to require ICU level of care. Full code. Visit type - Emergency Visit Emergency Visit: Yes ED Registration Date: 04/25/17 Care time: The patient presented to the Emergency Department on the above date and was hospitalized for further evaluation of their emergent condition. - New Patient This patient is new to me today: Yes Date on this admission: 04/27/17 - Critical Care Critical Care patient: Yes Total Critical Care Time (in minutes): 45 Critical Care Statement: The care of this patient involved high complexity decision making to prevent further life threatening deterioration of the patient 's condition and/or to evaluate & treat vital organ system(s) failure or risk of failure.
[2017-04-27] MEDS ORDERED: MAGNESIUM SULF 50% (8.12 MEQ/2 ML-1 GM VIAL) IVPB ONE (07:41)
--- NOTE | 2017-04-27 07:59 | PN ---
Progress Note, Physician Chief Complaint: ID Zosyn and Azithromycin day 2 Rx - Current Medication List Current Medications: Active Medications Acetaminophen (Tylenol Oral Solution -) 650 mg GT Q6H PRN PRN Reason: FEVER OR PAIN Acyclovir (Zovirax Oral Suspension -) 400 mg GT BID [facility] Last Admin: 04/26/17 22:24 Dose: 400 mg Albuterol/Ipratropium (Duoneb -) 1 amp NEB Q4HWA [facility] Last Admin: 04/27/17 06:00 Dose: 1 amp Baclofen (Lioresal -) 10 mg GT BID [facility] Last Admin: 04/26/17 22:24 Dose: 10 mg Chlorhexidine Gluconate (Hibiclens For Decolonization -) 1 applic TP HS [facility] Last Admin: 04/26/17 21:34 Dose: 1 applic Clobazam (Onfi -) 5 mg PO DAILY [facility] Last Admin: 04/26/17 12:01 Dose: 5 mg Clonazepam (Klonopin -) 1.5 mg GT TID [facility] Last Admin: 04/27/17 06:01 Dose: 1.5 mg Heparin Sodium (Porcine) (Heparin -) 5,000 unit SQ BID [facility] Last Admin: 04/26/17 21:33 Dose: 5,000 unit Piperacillin Sod/Tazobactam (Sod 3.375 gm/ Dextrose) 50 mls @ 100 mls/hr IVPB Q8H-IV [facility] PRN Reason: Protocol Last Admin: 04/27/17 03:00 Dose: 100 mls/hr Sodium Chloride (Normal Saline -) 1,000 mls @ 100 mls/hr IV ASDIR [facility] Last Admin: 04/26/17 22:24 Dose: 100 mls/hr Azithromycin 250 mg/ Dextrose 250 mls @ 250 mls/hr IVPB DAILY [facility] Last Admin: 04/26/17 12:01 Dose: 250 mls/hr Lamotrigine (Lamictal -) 200 mg PO BID [facility] Last Admin: 04/26/17 22:24 Dose: 200 mg Magnesium Sulfate (Magnesium Sulfate) 2 gm IVPB ONCE ONE Stop: 04/27/17 07:42 Mupirocin (Bactroban Ointment (For Decolonization) -) 1 applic NS BID [facility] Stop: 04/30/17 21:59 Last Admin: 04/26/17 21:31 Dose: 1 applic Phenobarbital (Phenobarbital -) 45 mg GT BID [facility] Last Admin: 04/26/17 21:34 Dose: 45 mg Ranitidine HCl (Zantac Oral Solution -) 75 mg GT BID [facility] Last Admin: 04/26/17 21:33 Dose: 75 mg Sodium Chloride (Normal Saline -) 900 ml IV Q20M PRN PRN Reason: MAP<65mm Hg OR SBP <90 - Objective Vital Signs: Vital Signs Temperature 99 F 04/27/17 06:00 Pulse Rate 79 04/27/17 06:00 Respiratory Rate 28 H 04/27/17 06:00 Blood Pressure 102/51 04/27/17 06:00 O2 Sat by Pulse Oximetry (%) 96 04/27/17 01:48 Constitutional: Yes: Mild Distress Cardiovascular: Yes: Tachycardia, S1, S2 Respiratory: Yes: WNL, Regular, CTA Bilaterally, Rhonchi Gastrointestinal: Yes: Soft. No: Tenderness Edema: No Labs: CBC, BMP 04/27/17 06:15 04/27/17 06:15 INR, PTT INR 1.15 (0.82-1.09) H 04/25/17 15:00 Assessment/Plan Microbiology 04/25/17 15:40 Nasopharyngeal Swab Respiratory Syncytial Virus Ag - Final 04/25/17 15:40 Nasopharyngeal Swab - Final 04/25/17 15:15 Urine - Urine - Catheterized Urine Culture - Final NO GROWTH OBTAINED 04/25/17 13:50 Blood - Peripheral Venous Blood Culture - Preliminary NO GROWTH OBTAINED AFTER 24 HOURS, INCUBATION TO CONTINUE FOR 4 DAYS. 04/25/17 13:50 Blood - Peripheral Venous Blood Culture - Preliminary NO GROWTH OBTAINED AFTER 24 HOURS, INCUBATION TO CONTINUE FOR 4 DAYS. Laboratory Tests 04/25/17 04/26/17 04/27/17 14:41 06:00 06:15 WBC 14.9 H D 11.4 H 9.7 Hgb 12.9 Plt Count 151 BUN Creatinine Creat Clearance w eGFR AST Alkaline Phosphatase 04/27/17 06:15 WBC Hgb Plt Count BUN 5 L D Creatinine 0.5 L Creat Clearance w eGFR > 60 AST 57 H D Alkaline Phosphatase 193 H Assessment Working diagnosis HAP vs CAP NOte Elevated Alk phos Plan Continue Zosyn and Azithromycin Sonogram liver Nikki SCHWARZ
[2017-04-27] MEDS: lamoTRIgine 100 MG TABLET (FP) PO SCH ×2 (09:15→22:01)
[2017-04-27] MEDS: ACYCLOVIR 200 MG/5 ML GT SCH ×2 (09:15→22:01)
[2017-04-27] MEDS: BACLOFEN 10 MG TABLET (FP) GT SCH ×2 (09:15→22:02)
[2017-04-27] MEDS: PHENobarbital 30 MG TABLET GT SCH ×2 (09:16→21:19)
[2017-04-27] MEDS: cloBAZam 10 MG TABLET PO SCH (09:18)
[2017-04-27] MEDS: RANITIDINE HCL 150 MG/10 ML UNIT-DOSE GT SCH ×2 (09:19→21:19)
[2017-04-27] MEDS: AZITHROMYCIN IVPB 250 MG in DEXTROSE 5%-WATER - 250 ML IVPB SCH (09:42)
[2017-04-27] MEDS: MUPIROCIN 2% TOPICAL OINTMENT FOR DECOLONIZATION NS SCH ×2 (09:42→21:22)
[2017-04-27] MEDS: HEPARIN NA (PORCINE) 5,000 UNITS/ML 1ML VIAL SQ SCH ×2 (09:43→21:17)
--- NOTE | 2017-04-27 13:26 | PN ---
Teaching Attending Note Name of Resident: Irena Ruiz ATTENDING PHYSICIAN STATEMENT I saw and evaluated the patient. I reviewed the resident's note and discussed the case with the resident. I agree with the resident's findings and plan as documented. SUBJECTIVE: Pt seen and examined in the ICU. Remains on BiPAP with 75% FiO2. Thick secretions per nursing. OBJECTIVE: Last Vital Signs Temp Pulse Resp BP Pulse Ox 100 F H 93 H 31 H 89/52 98 04/27/17 12:00 04/27/17 12:00 04/27/17 12:00 04/27/17 12:00 04/27/17 12:02 Intake & Output 04/24/17 04/25/17 04/26/17 04/27/17 23:59 23:59 23:59 23:59 Intake Total 2650 1250 Balance 2650 1250 Weight 97 lb 98 lb 14.4 oz 98 lb 8 oz Gen: mildly tachypneic on BiPAP Heart: RRR Lung: scattered rhonchi Abd: soft, nontender Ext: contracted, no edema CBC, BMP 04/27/17 06:15 04/27/17 06:15 Active Medications Acetaminophen (Tylenol Oral Solution -) 650 mg GT Q6H PRN PRN Reason: FEVER OR PAIN Acyclovir (Zovirax Oral Suspension -) 400 mg GT BID [facility] Last Admin: 04/27/17 09:15 Dose: 400 mg Albuterol/Ipratropium (Duoneb -) 1 amp NEB Q4HWA [facility] Last Admin: 04/27/17 10:15 Dose: 1 amp Baclofen (Lioresal -) 10 mg GT BID [facility] Last Admin: 04/27/17 09:15 Dose: 10 mg Chlorhexidine Gluconate (Hibiclens For Decolonization -) 1 applic TP HS [facility] Last Admin: 04/26/17 21:34 Dose: 1 applic Clobazam (Onfi -) 5 mg PO DAILY [facility] Last Admin: 04/27/17 09:18 Dose: 5 mg Clonazepam (Klonopin -) 1.5 mg GT TID [facility] Last Admin: 04/27/17 13:07 Dose: 1.5 mg Heparin Sodium (Porcine) (Heparin -) 5,000 unit SQ BID [facility] Last Admin: 04/27/17 09:43 Dose: 5,000 unit Piperacillin Sod/Tazobactam (Sod 3.375 gm/ Dextrose) 50 mls @ 100 mls/hr IVPB Q8H-IV JORGE PRN Reason: Protocol Last Admin: 04/27/17 09:42 Dose: 100 mls/hr Sodium Chloride (Normal Saline -) 1,000 mls @ 100 mls/hr IV ASDIR [facility] Last Admin: 04/26/17 22:24 Dose: 100 mls/hr Azithromycin 250 mg/ Dextrose 250 mls @ 250 mls/hr IVPB DAILY [facility] Last Admin: 04/27/17 09:42 Dose: 250 mls/hr Lamotrigine (Lamictal -) 200 mg PO BID [facility] Last Admin: 04/27/17 09:15 Dose: 200 mg Mupirocin (Bactroban Ointment (For Decolonization) -) 1 applic NS BID [facility] Stop: 04/30/17 21:59 Last Admin: 04/27/17 09:42 Dose: 1 applic Phenobarbital (Phenobarbital -) 45 mg GT BID [facility] Last Admin: 04/27/17 09:16 Dose: 45 mg Ranitidine HCl (Zantac Oral Solution -) 75 mg GT BID [facility] Last Admin: 04/27/17 09:19 Dose: 75 mg Sodium Chloride (Normal Saline -) 900 ml IV Q20M PRN PRN Reason: MAP<65mm Hg OR SBP <90 ASSESSMENT AND PLAN: Acute on Chronic Hypoxic Respiratory Failure Pneumonia Sepsis Mental Retardation Seizure Disorder h/o Asthma - continue antibiotics - f/u cultures - IVF - aspiration precautions - inhaled bronchodilators - place on NRB, taper to keep SpO2 >90% - keep NPO due to aspiration risk on BiPAP - DVT prophylaxis - continue ICU monitoring critical care time spent in reviewing chart, evaluating patient and formulating plan 35 min
--- NOTE | 2017-04-27 13:43 | PN ---
Physical Exam: SUBJECTIVE: Hypoxic occasionally on venti mask and switched to BiPap. Secretions still copious and thick (slightly red tinged). OBJECTIVE: Vital Signs Period Temp Pulse Resp BP Sys/Linares Pulse Ox Last 24 Hr 99 F-100.2 F 74-124 16-33 89-118/46-68 95-98 GENERAL: The patient is awake, alert, and seemingly at his mental baseline from previous encounters (baseline MR and nonverbal). HEAD: Head movement and craning per his baseline EYES: PERRL, extraocular movements intact, sclera anicteric, conjunctiva clear. No ptosis. ENT: Ears normal, nares patent, oropharynx clear without exudates, moist mucous membranes. NECK: Trachea midline, full range of motion, supple. LUNGS: Slightly tachypnic but not in apparent respiratory distress, thick secretions around mouth and course R sided lung sounds with some upper airway transmission. HEART: Regular rate and rhythm, S1, S2 without murmur, rub or gallop. ABDOMEN: Soft, nontender, nondistended, normoactive bowel sounds, no guarding, no rebound, no hepatosplenomegaly, no masses, G tube in place (C/D/I). EXTREMITIES: contracted x4, 2+ pulses, warm, well-perfused, no edema. NEUROLOGICAL: Quadriplegic PSYCH: Normal mood, normal affect. SKIN: Warm, dry, normal turgor, no rashes or lesions noted Laboratory Results - last 24 hr 04/25/17 04/27/17 04/27/17 15:00 06:15 06:15 WBC 9.7 RBC 3.87 L Hgb 12.9 Hct 37.4 MCV 96.5 H MCH 33.4 MCHC 34.6 RDW 16.7 H Plt Count 151 MPV 10.0 Neutrophils % 74.1 Lymphocytes % 15.6 D Monocytes % 7.3 Eosinophils % 2.9 D Basophils % 0.1 Sodium Potassium Chloride Carbon Dioxide Anion Gap BUN Creatinine Creat Clearance w eGFR Random Glucose Calcium Phosphorus Magnesium Total Bilirubin AST ALT Alkaline Phosphatase Total Protein Albumin Blood Type Cancelled O POSITIVE Antibody Screen Cancelled Negative Spec Expiration Date Cancelled 04/27/17 06:15 WBC RBC Hgb Hct MCV MCH MCHC RDW Plt Count MPV Neutrophils % Lymphocytes % Monocytes % Eosinophils % Basophils % Sodium 139 Potassium 3.6 Chloride 104 Carbon Dioxide 27 Anion Gap 8 BUN 5 L D Creatinine 0.5 L Creat Clearance w eGFR > 60 Random Glucose 108 H D Calcium 8.3 L Phosphorus 3.0 Magnesium 1.5 L D Total Bilirubin 0.5 D AST 57 H D ALT 63 Alkaline Phosphatase 193 H Total Protein 7.1 Albumin 2.9 L Blood Type Antibody Screen Spec Expiration Date Active Medications Generic Name Dose Route Start Last Admin Trade Name Freq PRN Reason Stop Dose Admin Acetaminophen 650 mg 04/26/17 14:11 Tylenol Oral Solution - GT Q6H PRN FEVER OR PAIN Acyclovir 400 mg 04/25/17 22:00 04/27/17 09:15 Zovirax Oral Suspension - GT 400 mg BID FERNANDO Administration Albuterol/Ipratropium 1 amp 04/25/17 19:00 04/27/17 10:15 Duoneb - NEB 1 amp Q4HWA FERNANDO Administration Baclofen 10 mg 04/25/17 22:00 04/27/17 09:15 Lioresal - GT 10 mg BID FERNANDO Administration Chlorhexidine Gluconate 1 applic 04/25/17 22:00 04/26/17 21:34 Hibiclens For Decolonization - TP 1 applic HS FERNANDO Administration Clobazam 5 mg 04/26/17 10:00 04/27/17 09:18 Onfi - PO 5 mg DAILY FERNANDO Administration Clonazepam 1.5 mg 04/25/17 22:00 04/27/17 13:07 Klonopin - GT 1.5 mg TID FERNANDO Administration Heparin Sodium (Porcine) 5,000 unit 04/25/17 22:00 04/27/17 09:43 Heparin - SQ 5,000 unit BID FERNANDO Administration Piperacillin Sod/Tazobactam 50 mls @ 100 mls/hr 04/26/17 02:00 04/27/17 09:42 Sod 3.375 gm/ Dextrose IVPB 100 mls/hr Q8H-IV FERNANDO Administration Protocol Sodium Chloride 1,000 mls @ 100 mls/hr 04/25/17 19:00 04/26/17 22:24 Normal Saline - IV 100 mls/hr ASDIR FERNANDO Administration Azithromycin 250 mg/ Dextrose 250 mls @ 250 mls/hr 04/26/17 10:00 04/27/17 09 :42 IVPB 250 mls/hr DAILY FERNANDO Administration Lamotrigine 200 mg 04/26/17 22:00 12/18/17 09:15 Lamictal - PO 200 mg BID FERNANDO Administration Mupirocin 1 applic 04/25/17 22:00 04/27/17 09:42 Bactroban Ointment (For Decolonization) - NS 04/30/17 21:59 1 applic BID FERNANDO Administration Phenobarbital 45 mg 04/25/17 22:00 04/27/17 09:16 Phenobarbital - GT 45 mg BID FERNANDO Administration Ranitidine HCl 75 mg 04/25/17 22:00 04/27/17 09:19 Zantac Oral Solution - GT 75 mg BID FERNANDO Administration Sodium Chloride 900 ml 04/25/17 13:40 Normal Saline - IV Q20M PRN MAP<65mm Hg OR SBP <90 ASSESSMENT/PLAN: 22yom with PMHx of mental retardation, herpes encephalopathy, seizure disorder, asthma (on home O2 via NC), who was brought to the ED from the [facility] [place] with hypoxic respiratory failure in he setting of suspected HCAP +/- aspiration pneumonia. Neuro: Patient has herpes encephalopathy and seizure disorder with baseline quadriplegia. He appears to be at his baseline activity level. - Continue acyclovir - continue clonazepam, colbazam, phenobaribtal, and lamictal CV: No acute issues. NSR. Pulm: Sepsis 2/2 likely aspiration pneumonia with hazy cardiac border and LLL base, Vancomycin given in ED (04/25) - NGTD - UC NGTD - RSV negative, Influenza A&B negative, Legionella neg, strep neg - Continue Zosyn (04/25- ) - Started on Azithromycin (04/26- ) - IV fluids NS 100ml/hr - Contineu to hold all tube feeds - ID recs appreciated Acute on chronic respiratory failure. Not acidotic on ABG. - Continue ventimask with O2 goal >92%% and can swtich to non-rebreather if desatting - Continue to wean FiO2 - Will avoid Bi-Pap given risk of aspiration - Low threshold for intubation - Duonebs q4h fernando FEN: - Hold all tube feeds to prevent aspiration - IV fluids - Monitor electrolytes Prophylaxis: - Heparin 5,000u sq bid - Ranitidine Dispo: - Requires intensive respiratory status monitoring Visit type - Emergency Visit Emergency Visit: No - New Patient This patient is new to me today: No - Critical Care Critical Care patient: No - Discharge Referral Referred to [facility] Med P.C.: No
[2017-04-27] MEDS: ACETAMINOPHEN 650 MG/20.3 ML ORAL SOLUTION (CUPS) GT PRN (14:33)
[2017-04-27] MEDS: CHLORHEXIDINE GLUCONATE 4% CLEANSER FOR DECOLONIZATION TP SCH (21:18)
[2017-04-27] MEDS: SODIUM CHLORIDE 1,000 ML IV SCH (21:22)
--- NOTE | 2017-04-28 01:42 | EKG ---
Test Reason : Blood Pressure : / mmHG Vent. Rate : 119 BPM Atrial Rate : 119 BPM P-R Int : 158 ms QRS Dur : 102 ms QT Int : 320 ms P-R-T Axes : 055 120 032 degrees QTc Int : 450 ms SINUS TACHYCARDIA RIGHT AXIS DEVIATION INFERIOR-POSTERIOR INFARCT (CITED ON OR BEFORE 26-JUN-2016) ABNORMAL ECG WHEN COMPARED WITH ECG OF 25-SEP-2016 11:36, T WAVE VARIATION Confirmed by FIORELLA SCHWRAZ, MAIKOL ([id number]) on 04/28/2017 1:41:32 AM Referred By: Confirmed By:MAIKOL BARROS MD
[2017-04-28] MEDS ORDERED: PT OWN MED DRAWER 7, Y5N ONE ×2 (01:59→21:17)
[2017-04-28] MEDS: PIPERACILLIN/TAZOB 3.375 GM 3.375 GM in DEXTROSE 5%-WATER - 50 ML IVPB SCH ×3 (02:34→18:59)
[2017-04-28] MEDS: ALBUTEROL SO4 2.5/IPRATROPIUM 0.5 INH SOL 3 ML VIAL.NEB. NEB SCH ×5 (05:02→22:30)
[2017-04-28] MEDS: ACETAMINOPHEN 650 MG/20.3 ML ORAL SOLUTION (CUPS) GT PRN (05:45)
[2017-04-28] MEDS: clonazePAM 0.5 MG TABLET GT SCH ×3 (05:46→21:28)
[2017-04-28 07:15] LABS: MCH 32.5 pg (25.7-33.7); MCHC 33.7 g/dl (32.0-35.9); MEAN CELL VOLUME 96.6 fl (80-96); MEAN PLT VOLUME 9.9 fl (7.5-11.1); PLATELET COUNT 136 K/MM3 (134-434); RDW 17.1 % (11.9-15.9); WHITE BLOOD COUNT 10.3 K/mm3 (4.0-10.0)
[2017-04-28 07:53] LABS: ALBUMIN 2.6 g/dl (3.4-5.0); ALK PHOS 179 U/L (45-117); ANION GAP 11 (8-16); BILIRUBIN,TOTAL 0.3 mg/dL (0.2-1.0); CALCIUM 8.1 mg/dL (8.5-10.1); CO2 24 mmol/L (21-32); CREATININE 0.5 mg/dL (0.7-1.3); GLUCOSE,RANDOM 109 mg/dL (74-106); MAGNESIUM 1.4 mg/dL (1.8-2.4); PHOSPHOROUS 2.6 mg/dL (2.5-4.9); SGOT/AST 63 U/L (15-37); SGPT/ALT 58 U/L (12-78); TOT PROT 6.6 g/dl (6.4-8.2)
[2017-04-28] MEDS ORDERED: POTASSIUM CHLORIDE 20 MEQ PREMIX IVPB 100 ML IVPB ONE ×2 (09:34→10:00)
[2017-04-28] MEDS: BACLOFEN 10 MG TABLET (FP) GT SCH ×2 (09:54→21:29)
[2017-04-28] MEDS: ACYCLOVIR 200 MG/5 ML GT SCH ×2 (09:54→22:29)
[2017-04-28] MEDS: cloBAZam 10 MG TABLET PO SCH (09:55)
[2017-04-28] MEDS: MUPIROCIN 2% TOPICAL OINTMENT FOR DECOLONIZATION NS SCH ×2 (09:57→21:29)
[2017-04-28] MEDS: HEPARIN NA (PORCINE) 5,000 UNITS/ML 1ML VIAL SQ SCH ×2 (09:58→21:28)
[2017-04-28] MEDS: RANITIDINE HCL 150 MG/10 ML UNIT-DOSE GT SCH ×2 (09:59→21:28)
[2017-04-28] MEDS: PHENobarbital 30 MG TABLET GT SCH ×2 (10:02→21:28)
[2017-04-28] MEDS: AZITHROMYCIN IVPB 250 MG in DEXTROSE 5%-WATER - 250 ML IVPB SCH (11:20)
--- NOTE | 2017-04-28 13:19 | PN ---
Teaching Attending Note Name of Resident: Irena Ruiz ATTENDING PHYSICIAN STATEMENT I saw and evaluated the patient. I reviewed the resident's note and discussed the case with the resident. I agree with the resident's findings and plan as documented. SUBJECTIVE: Pt seen and examined in the ICU. Now on 70% face tent. Febrile overnight. Frequent cough. OBJECTIVE: Last Vital Signs Temp Pulse Resp BP Pulse Ox 99.2 F 106 H 25 H 106/55 91 L 04/28/17 10:00 04/28/17 12:00 04/28/17 12:00 04/28/17 12:00 04/27/17 21:26 Intake & Output 04/25/17 04/26/17 04/27/17 04/28/17 23:59 23:59 23:59 23:59 Intake Total 2650 2300 1232 Output Total 500 Balance 2650 2300 732 Weight 97 lb 98 lb 14.4 oz 98 lb 8 oz 99 lb 12.8 oz Gen: NAD at rest Heart: tachycardic, irregular Lung: bilateral rhonchi Abd: soft, nontender Ext: no edema CBC, BMP 04/28/17 06:00 04/28/17 06:00 Active Medications Acetaminophen (Tylenol Oral Solution -) 650 mg GT Q6H PRN PRN Reason: FEVER OR PAIN Last Admin: 04/28/17 05:45 Dose: 650 mg Acyclovir (Zovirax Oral Suspension -) 400 mg GT BID [facility] Last Admin: 04/28/17 09:54 Dose: 400 mg Albuterol/Ipratropium (Duoneb -) 1 amp NEB Q4HWA [facility] Last Admin: 04/28/17 11:55 Dose: 1 amp Baclofen (Lioresal -) 10 mg GT BID [facility] Last Admin: 04/28/17 09:54 Dose: 10 mg Chlorhexidine Gluconate (Hibiclens For Decolonization -) 1 applic TP HS [facility] Last Admin: 04/27/17 21:18 Dose: 1 applic Clobazam (Onfi -) 5 mg PO DAILY [facility] Last Admin: 04/28/17 09:55 Dose: 5 mg Clonazepam (Klonopin -) 1.5 mg GT TID [facility] Last Admin: 04/28/17 05:46 Dose: 1.5 mg Heparin Sodium (Porcine) (Heparin -) 5,000 unit SQ BID [facility] Last Admin: 04/28/17 09:58 Dose: 5,000 unit Piperacillin Sod/Tazobactam (Sod 3.375 gm/ Dextrose) 50 mls @ 100 mls/hr IVPB Q8H-IV JORGE PRN Reason: Protocol Last Admin: 04/28/17 09:56 Dose: 100 mls/hr Sodium Chloride (Normal Saline -) 1,000 mls @ 100 mls/hr IV ASDIR [facility] Last Admin: 04/27/17 21:22 Dose: 100 mls/hr Azithromycin 250 mg/ Dextrose 250 mls @ 250 mls/hr IVPB DAILY [facility] Last Admin: 04/28/17 11:20 Dose: 250 mls/hr Lamotrigine (Lamictal -) 200 mg PO BID [facility] Last Admin: 04/27/17 22:01 Dose: 200 mg Mupirocin (Bactroban Ointment (For Decolonization) -) 1 applic NS BID [facility] Stop: 04/30/17 21:59 Last Admin: 04/28/17 09:57 Dose: 1 applic Phenobarbital (Phenobarbital -) 45 mg GT BID [facility] Last Admin: 04/28/17 10:02 Dose: 45 mg Ranitidine HCl (Zantac Oral Solution -) 75 mg GT BID [facility] Last Admin: 04/28/17 09:59 Dose: 75 mg Sodium Chloride (Normal Saline -) 900 ml IV Q20M PRN PRN Reason: MAP<65mm Hg OR SBP <90 ASSESSMENT AND PLAN: Acute on Chronic Hypoxic Respiratory Failure Pneumonia Sepsis Mental Retardation Seizure Disorder h/o Asthma - continue antibiotics - f/u cultures - IVF - aspiration precautions - inhaled bronchodilators - taper FiO2 to keep SpO2 >90% - keep NPO due to aspiration risk - DVT prophylaxis - continue ICU monitoring critical care time spent in reviewing chart, evaluating patient and formulating plan 35 min
--- NOTE | 2017-04-28 13:39 | PN ---
Physical Exam: SUBJECTIVE: Patient hypoxic yesterday so placed on face tent with humidified O2 and tolerated it well with good SATs. OBJECTIVE: Vital Signs Period Temp Pulse Resp BP Sys/Linares Pulse Ox Last 24 Hr 98.5 F-101.1 F 84-121 18-29 89-106/37-68 91-98 GENERAL: The patient is awake, alert, and seemingly at his mental baseline from previous encounters (baseline MR and nonverbal). HEAD: Head movement and craning per his baseline EYES: PERRL, extraocular movements intact, sclera anicteric, conjunctiva clear. No ptosis. ENT: Ears normal, nares patent, oropharynx clear without exudates, moist mucous membranes. NECK: Trachea midline, full range of motion, supple. LUNGS: Slightly tachypnic but not in apparent respiratory distress, thick secretions around mouth and course R sided lung sounds with some upper airway transmission. However, compared to yesterday his cough is less frequent. HEART: Regular rate and rhythm, S1, S2 without murmur, rub or gallop. ABDOMEN: Soft, nontender, nondistended, normoactive bowel sounds, no guarding, no rebound, no hepatosplenomegaly, no masses, G tube in place (C/D/I). EXTREMITIES: contracted x4, 2+ pulses, warm, well-perfused, no edema. NEUROLOGICAL: Quadriplegic PSYCH: Normal mood, normal affect. SKIN: Warm, dry, normal turgor, no rashes or lesions noted Laboratory Results - last 24 hr 04/28/17 04/28/17 06:00 06:00 WBC 10.3 H RBC 3.63 L Hgb 11.8 Hct 35.1 L MCV 96.6 H MCH 32.5 MCHC 33.7 RDW 17.1 H Plt Count 136 MPV 9.9 Sodium 142 Potassium 3.3 L Chloride 107 Carbon Dioxide 24 Anion Gap 11 BUN 4 L Creatinine 0.5 L Creat Clearance w eGFR > 60 Random Glucose 109 H Calcium 8.1 L Phosphorus 2.6 Magnesium 1.4 L Total Bilirubin 0.3 D AST 63 H ALT 58 Alkaline Phosphatase 179 H Total Protein 6.6 Albumin 2.6 L Active Medications Generic Name Dose Route Start Last Admin Trade Name Freq PRN Reason Stop Dose Admin Acetaminophen 650 mg 04/26/17 14:11 04/28/17 05:45 Tylenol Oral Solution - GT 650 mg Q6H PRN Administration FEVER OR PAIN Acyclovir 400 mg 04/25/17 22:00 04/28/17 09:54 Zovirax Oral Suspension - GT 400 mg BID FERNANDO Administration Albuterol/Ipratropium 1 amp 04/25/17 19:00 04/28/17 11:55 Duoneb - NEB 1 amp Q4HWA FERNANDO Administration Baclofen 10 mg 04/25/17 22:00 04/28/17 09:54 Lioresal - GT 10 mg BID FERNANDO Administration Chlorhexidine Gluconate 1 applic 04/25/17 22:00 04/27/17 21:18 Hibiclens For Decolonization - TP 1 applic HS FERNANDO Administration Clobazam 5 mg 04/26/17 10:00 04/28/17 09:55 Onfi - PO 5 mg DAILY FERNANDO Administration Clonazepam 1.5 mg 04/25/17 22:00 04/28/17 05:46 Klonopin - GT 1.5 mg TID FERNANDO Administration Heparin Sodium (Porcine) 5,000 unit 04/25/17 22:00 04/28/17 09:58 Heparin - SQ 5,000 unit BID FERNANDO Administration Piperacillin Sod/Tazobactam 50 mls @ 100 mls/hr 04/26/17 02:00 04/28/17 09:56 Sod 3.375 gm/ Dextrose IVPB 100 mls/hr Q8H-IV FERNANDO Administration Protocol Sodium Chloride 1,000 mls @ 100 mls/hr 04/25/17 19:00 04/27/17 21:22 Normal Saline - IV 100 mls/hr ASDIR FERNANDO Administration Azithromycin 250 mg/ Dextrose 250 mls @ 250 mls/hr 04/26/17 10:00 04/28/17 11 :20 IVPB 250 mls/hr DAILY FERNANDO Administration Lamotrigine 200 mg 04/26/17 22:00 04/27/17 22:01 Lamictal - PO 200 mg BID FERNANDO Administration Mupirocin 1 applic 04/25/17 22:00 04/28/17 09:57 Bactroban Ointment (For Decolonization) - NS 04/30/17 21:59 1 applic BID FERNANDO Administration Phenobarbital 45 mg 04/25/17 22:00 04/28/17 10:02 Phenobarbital - GT 45 mg BID FERNANDO Administration Ranitidine HCl 75 mg 04/25/17 22:00 04/28/17 09:59 Zantac Oral Solution - GT 75 mg BID FERNANDO Administration Sodium Chloride 900 ml 04/25/17 13:40 Normal Saline - IV Q20M PRN MAP<65mm Hg OR SBP <90 ASSESSMENT/PLAN: 22yom with PMHx of MR, herpes encephalopathy, seizure disorder, asthma (on home O2 via [place]), who was brought to the ED from the [facility] with hypoxic respiratory failure in he setting of suspected HCAP/ CAP +/- aspiration pneumonia. Neuro: Patient has herpes encephalopathy and seizure disorder with baseline functional quadriplegia. He appears to be at his baseline activity level. - Continue acyclovir - continue clonazepam, colbazam, phenobaribtal, and lamictal CV: No acute issues. NSR. Pulm: Sepsis 2/2 likely aspiration pneumonia with hazy cardiac border and LLL base, Vancomycin given in ED (04/25). BC NGTD. UC NGTD. RSV negative, Influenza A&B negative, Legionella neg, strep neg - Continue Zosyn (04/25- ) - Started on Azithromycin (04/26- ) - IV fluids NS 100ml/hr - Continue to hold all tube feeds - ID recs appreciated Acute on chronic respiratory failure. Not acidotic on ABG. - Continue face tent with O2 goal >92%% and can swtich to non-rebreather if desatting - Continue to wean FiO2 - Will avoid Bi-Pap given risk of aspiration - Low threshold for intubation - Duonebs q4h fernando FEN: - Hold all tube feeds to prevent aspiration - IV fluids - Repleting vitamin K 20 MEQ IV x 2 for K 3.6 - Monitor electrolytes Prophylaxis: - Heparin 5,000u sq bid - Ranitidine Dispo: - Could be stable for dispo once respiratory status stabilizes on a care home therapy. Visit type - Emergency Visit Emergency Visit: No - New Patient This patient is new to me today: No - Critical Care Critical Care patient: No - Discharge Referral Referred to [facility] Med P.C.: No
--- NOTE | 2017-04-28 14:00 | PN ---
Progress Note, Physician History of Present Illness: Awake, non verbal Slightly tachypneic on face mask Afebrile WBC improved BC (-) Sputum c/s pending Legionella ag (-) - Current Medication List Current Medications: Active Medications Acetaminophen (Tylenol Oral Solution -) 650 mg GT Q6H PRN PRN Reason: FEVER OR PAIN Last Admin: 04/28/17 05:45 Dose: 650 mg Acyclovir (Zovirax Oral Suspension -) 400 mg GT BID [facility] Last Admin: 04/28/17 09:54 Dose: 400 mg Albuterol/Ipratropium (Duoneb -) 1 amp NEB Q4HWA [facility] Last Admin: 04/28/17 11:55 Dose: 1 amp Baclofen (Lioresal -) 10 mg GT BID [facility] Last Admin: 04/28/17 09:54 Dose: 10 mg Chlorhexidine Gluconate (Hibiclens For Decolonization -) 1 applic TP HS [facility] Last Admin: 04/27/17 21:18 Dose: 1 applic Clobazam (Onfi -) 5 mg PO DAILY [facility] Last Admin: 04/28/17 09:55 Dose: 5 mg Clonazepam (Klonopin -) 1.5 mg GT TID [facility] Last Admin: 04/28/17 05:46 Dose: 1.5 mg Heparin Sodium (Porcine) (Heparin -) 5,000 unit SQ BID [facility] Last Admin: 04/28/17 09:58 Dose: 5,000 unit Piperacillin Sod/Tazobactam (Sod 3.375 gm/ Dextrose) 50 mls @ 100 mls/hr IVPB Q8H-IV JORGE PRN Reason: Protocol Last Admin: 04/28/17 09:56 Dose: 100 mls/hr Sodium Chloride (Normal Saline -) 1,000 mls @ 100 mls/hr IV ASDIR [facility] Last Admin: 04/27/17 21:22 Dose: 100 mls/hr Azithromycin 250 mg/ Dextrose 250 mls @ 250 mls/hr IVPB DAILY [facility] Last Admin: 04/28/17 11:20 Dose: 250 mls/hr Lamotrigine (Lamictal -) 200 mg PO BID [facility] Last Admin: 04/27/17 22:01 Dose: 200 mg Mupirocin (Bactroban Ointment (For Decolonization) -) 1 applic NS BID [facility] Stop: 04/30/17 21:59 Last Admin: 04/28/17 09:57 Dose: 1 applic Phenobarbital (Phenobarbital -) 45 mg GT BID [facility] Last Admin: 04/28/17 10:02 Dose: 45 mg Ranitidine HCl (Zantac Oral Solution -) 75 mg GT BID [facility] Last Admin: 04/28/17 09:59 Dose: 75 mg Sodium Chloride (Normal Saline -) 900 ml IV Q20M PRN PRN Reason: MAP<65mm Hg OR SBP <90 - Objective Vital Signs: Vital Signs Temperature 99.2 F 04/28/17 10:00 Pulse Rate 106 H 04/28/17 12:00 Respiratory Rate 25 H 04/28/17 12:00 Blood Pressure 106/55 04/28/17 12:00 O2 Sat by Pulse Oximetry (%) 91 L 04/27/17 21:26 Constitutional: Yes: No Distress Cardiovascular: Yes: Regular Rate and Rhythm, S1, S2 Respiratory: Yes: Rhonchi Gastrointestinal: Yes: Normal Bowel Sounds, Soft. No: Tenderness Edema: Yes Edema: LLE: Trace, RLE: Trace Labs: CBC, BMP 04/28/17 06:00 04/28/17 06:00 INR, PTT INR 1.15 (0.82-1.09) H 04/25/17 15:00 Assessment/Plan HCAP Leukocytosis- improved Check sputum Continue zosyn D/C zithromax
[2017-04-28] MEDS: lamoTRIgine 100 MG TABLET (FP) PO SCH ×2 (14:08→21:28)
[2017-04-28] MEDS: SODIUM CHLORIDE 1,000 ML IV SCH ×2 (19:29→19:55)
[2017-04-28] MEDS: PIPERACILLIN/TAZOB 3.375 GM 3.375 GM in DEXTROSE 5%-WATER - 100 ML IVPB SCH (19:56)
[2017-04-28] MEDS: CHLORHEXIDINE GLUCONATE 4% CLEANSER FOR DECOLONIZATION TP SCH (21:29)
--- NOTE | 2017-04-28 22:50 | PN ---
Physical Exam: SUBJECTIVE: Patient seen and examined at bedside in ICU. OBJECTIVE: Vital Signs Period Temp Pulse Resp BP Sys/Linares Pulse Ox Last 24 Hr 97.8 F-101.1 F 82-121 18-29 89-117/43-75 96-99 GENERAL/NEURO: Nonverbal at baseline; vocalizing and smiling in response to verbal stimuli, improved LUNGS: diffuse rhonchi HEART: Tachycardic; regular rate and rhythm, S1, S2 without murmur, rub or gallop. ABDOMEN: PEG in place, surrounding skin intact EXTREMITIES: contracted x 4; 2+ pulses, warm, well-perfused, no edema. Laboratory Results - last 24 hr 04/28/17 04/28/17 06:00 06:00 WBC 10.3 H RBC 3.63 L Hgb 11.8 Hct 35.1 L MCV 96.6 H MCH 32.5 MCHC 33.7 RDW 17.1 H Plt Count 136 MPV 9.9 Sodium 142 Potassium 3.3 L Chloride 107 Carbon Dioxide 24 Anion Gap 11 BUN 4 L Creatinine 0.5 L Creat Clearance w eGFR > 60 Random Glucose 109 H Calcium 8.1 L Phosphorus 2.6 Magnesium 1.4 L Total Bilirubin 0.3 D AST 63 H ALT 58 Alkaline Phosphatase 179 H Total Protein 6.6 Albumin 2.6 L Active Medications Generic Name Dose Route Start Last Admin Trade Name Freq PRN Reason Stop Dose Admin Acetaminophen 650 mg 04/26/17 14:11 04/28/17 05:45 Tylenol Oral Solution - GT 650 mg Q6H PRN Administration FEVER OR PAIN Acyclovir 400 mg 04/25/17 22:00 04/28/17 22:29 Zovirax Oral Suspension - GT 400 mg BID JORGE Administration Albuterol/Ipratropium 1 amp 04/25/17 19:00 04/28/17 22:30 Duoneb - NEB 1 amp Q4HWA JORGE Administration Baclofen 10 mg 04/25/17 22:00 04/28/17 21:29 Lioresal - GT 10 mg BID JORGE Administration Chlorhexidine Gluconate 1 applic 04/25/17 22:00 04/28/17 21:29 Hibiclens For Decolonization - TP 1 applic HS JORGE Administration Clobazam 5 mg 04/26/17 10:00 04/28/17 09:55 Onfi - PO 5 mg DAILY JORGE Administration Clonazepam 1.5 mg 04/25/17 22:00 04/28/17 21:28 Klonopin - GT 1.5 mg TID JORGE Administration Heparin Sodium (Porcine) 5,000 unit 04/25/17 22:00 04/28/17 21:28 Heparin - SQ 5,000 unit BID JORGE Administration Sodium Chloride 1,000 mls @ 100 mls/hr 04/25/17 19:00 04/28/17 19:55 Normal Saline - IV Not Given ASDIR JORGE Piperacillin Sod/Tazobactam 100 mls @ 200 mls/hr 04/28/17 19:00 04/28/17 19: 56 Sod 3.375 gm/ Dextrose IVPB 05/03/17 18:59 200 mls/hr Q8H-IV JORGE Administration Protocol Lamotrigine 200 mg 04/26/17 22:00 04/28/17 21:28 Lamictal - PO 200 mg BID JORGE Administration Mupirocin 1 applic 04/25/17 22:00 04/28/17 21:29 Bactroban Ointment (For Decolonization) - NS 04/30/17 21:59 1 applic BID JORGE Administration Phenobarbital 45 mg 04/25/17 22:00 04/28/17 21:28 Phenobarbital - GT 45 mg BID JORGE Administration Ranitidine HCl 75 mg 04/25/17 22:00 04/28/17 21:28 Zantac Oral Solution - GT 75 mg BID JORGE Administration Sodium Chloride 900 ml 04/25/17 13:40 Normal Saline - IV Q20M PRN MAP<65mm Hg OR SBP <90 ASSESSMENT/PLAN 22 year-old male with PMH significant for profound mental retardation, herpes encephalopathy, seizure disorder, and asthma on home O2, who presented to the ED with acute respiratory distress, fever, cough. Sepsis likely secondary to aspiration pneumonia --Tm 101.8; mild bump in WBC 10.8k --cultures negative to date --per ID, d/c azithromycin, continue Zosyn (day #3) Acute on chronic respiratory failure --on face tent --maintain O2 sats >92% --duonebs Herpes encephalopathy --continue acyclovir Seizure disorder --continue clonazepam, clobazam, phenobarbital, lamictal Hypomagnesemia --replete Functional quadriplegia --profoundly retarded --extremities shortened and contracted --dependent for all ADLs FEN Fluids: NS @ 100mL/hr Electrolytes: replete as indicated Nutrition: hold tube feeds DVT prophylaxis: subq heparin Dispo: continues to require ICU level of care. Full code. Visit type - Emergency Visit Emergency Visit: Yes ED Registration Date: 04/25/17 Care time: The patient presented to the Emergency Department on the above date and was hospitalized for further evaluation of their emergent condition. - New Patient This patient is new to me today: No - Critical Care Critical Care patient: No
[2017-04-29] MEDS: PIPERACILLIN/TAZOB 3.375 GM 3.375 GM in DEXTROSE 5%-WATER - 100 ML IVPB SCH ×3 (01:17→17:15)
[2017-04-29] MEDS: ALBUTEROL SO4 2.5/IPRATROPIUM 0.5 INH SOL 3 ML VIAL.NEB. NEB SCH ×5 (06:00→23:25)
[2017-04-29] MEDS: clonazePAM 0.5 MG TABLET GT SCH ×3 (06:30→22:01)
[2017-04-29 06:40] LABS: EOS % 1.2 % (0-4.5); MCH 32.8 pg (25.7-33.7); MCHC 33.8 g/dl (32.0-35.9); MEAN CELL VOLUME 97.1 fl (80-96); NEUT % 82.2 % (42.8-82.8); PLATELET COUNT 179 K/MM3 (134-434); RDW 16.9 % (11.9-15.9); WHITE BLOOD COUNT 13.1 K/mm3 (4.0-10.0)
[2017-04-29 07:01] LABS: ALBUMIN 2.7 g/dl (3.4-5.0); ALK PHOS 200 U/L (45-117); ANION GAP 9 (8-16); BILIRUBIN,TOTAL 0.6 mg/dL (0.2-1.0); CALCIUM 8.1 mg/dL (8.5-10.1); CO2 26 mmol/L (21-32); CREATININE 0.4 mg/dL (0.7-1.3); GLUCOSE,RANDOM 91 mg/dL (74-106); MAGNESIUM 1.5 mg/dL (1.8-2.4); PHOSPHOROUS 3.2 mg/dL (2.5-4.9); SGOT/AST 48 U/L (15-37); SGPT/ALT 55 U/L (12-78); TOT PROT 6.9 g/dl (6.4-8.2)
[2017-04-29] MEDS ORDERED: MAGNESIUM SULF 50% (8.12 MEQ/2 ML-1 GM VIAL) IVPB ONE (07:38)
--- NOTE | 2017-04-29 07:41 | PN ---
Physical Exam: SUBJECTIVE: Patient seen and examined in ICU. OBJECTIVE: Vital Signs Period Temp Pulse Resp BP Sys/Linares Pulse Ox Last 24 Hr 96.9 F-99.2 F 80-106 18-30 89-122/43-75 96-99 GENERAL/NEURO: Sleeping but arousable; nonverbal at baseline LUNGS: rhonchi, better air movement HEART: Regular rate and rhythm, S1, S2 without murmur, rub or gallop. ABDOMEN: PEG in place, surrounding skin intact EXTREMITIES: contracted x 4; 2+ pulses, warm, well-perfused, no edema. Laboratory Results - last 24 hr 04/28/17 04/29/17 04/29/17 06:00 06:20 06:20 WBC 13.1 H RBC 3.72 L Hgb 12.2 Hct 36.2 MCV 97.1 H MCH 32.8 MCHC 33.8 RDW 16.9 H Plt Count 179 D MPV 10.0 Neutrophils % 82.2 Lymphocytes % 9.6 D Monocytes % 7.0 Eosinophils % 1.2 Basophils % 0.0 Sodium 142 140 Potassium 3.3 L 3.6 Chloride 107 105 Carbon Dioxide 24 26 Anion Gap 11 9 BUN 4 L 3 L D Creatinine 0.5 L 0.4 L Creat Clearance w eGFR > 60 > 60 Random Glucose 109 H 91 Calcium 8.1 L 8.1 L Phosphorus 2.6 3.2 D Magnesium 1.4 L 1.5 L Total Bilirubin 0.3 D 0.6 D AST 63 H 48 H D ALT 58 55 Alkaline Phosphatase 179 H 200 H Total Protein 6.6 6.9 Albumin 2.6 L 2.7 L Active Medications Generic Name Dose Route Start Last Admin Trade Name Davidq PRN Reason Stop Dose Admin Acetaminophen 650 mg 04/26/17 14:11 04/28/17 05:45 Tylenol Oral Solution - GT 650 mg Q6H PRN Administration FEVER OR PAIN Acyclovir 400 mg 04/25/17 22:00 04/28/17 22:29 Zovirax Oral Suspension - GT 400 mg BID JORGE Administration Albuterol/Ipratropium 1 amp 04/25/17 19:00 04/29/17 06:00 Duoneb - NEB 1 amp Q4HWA JORGE Administration Baclofen 10 mg 04/25/17 22:00 04/28/17 21:29 Lioresal - GT 10 mg BID JORGE Administration Chlorhexidine Gluconate 1 applic 04/25/17 22:00 04/28/17 21:29 Hibiclens For Decolonization - TP 1 applic HS JORGE Administration Clobazam 5 mg 04/26/17 10:00 04/28/17 09:55 Onfi - PO 5 mg DAILY JORGE Administration Clonazepam 1.5 mg 04/25/17 22:00 04/29/17 06:30 Klonopin - GT 1.5 mg TID JORGE Administration Heparin Sodium (Porcine) 5,000 unit 04/25/17 22:00 04/28/17 21:28 Heparin - SQ 5,000 unit BID JORGE Administration Sodium Chloride 1,000 mls @ 100 mls/hr 04/25/17 19:00 04/28/17 19:55 Normal Saline - IV Not Given ASDIR JORGE Piperacillin Sod/Tazobactam 100 mls @ 200 mls/hr 04/28/17 19:00 04/29/17 01: 17 Sod 3.375 gm/ Dextrose IVPB 05/03/17 18:59 200 mls/hr Q8H-IV JORGE Administration Protocol Lamotrigine 200 mg 04/26/17 22:00 04/28/17 21:28 Lamictal - PO 200 mg BID JORGE Administration Magnesium Sulfate 2 gm 04/29/17 07:38 Magnesium Sulfate IVPB 04/29/17 07:39 ONCE ONE Mupirocin 1 applic 04/25/17 22:00 04/28/17 21:29 Bactroban Ointment (For Decolonization) - NS 04/30/17 21:59 1 applic BID JORGE Administration Phenobarbital 45 mg 04/25/17 22:00 04/28/17 21:28 Phenobarbital - GT 45 mg BID JORGE Administration Ranitidine HCl 75 mg 04/25/17 22:00 04/28/17 21:28 Zantac Oral Solution - GT 75 mg BID JORGE Administration Sodium Chloride 900 ml 04/25/17 13:40 Normal Saline - IV Q20M PRN MAP<65mm Hg OR SBP <90 ASSESSMENT/PLAN: 22 year-old male with PMH significant for profound mental retardation, herpes encephalopathy, seizure disorder, and asthma on home O2, who presented to the ED with acute respiratory distress, fever, cough. Sepsis likely secondary to aspiration pneumonia --afebrile but WBC continues to trend up --cultures negative to date --continue Zosyn Acute on chronic respiratory failure --on face tent --maintain O2 sats >92% --duonebs Herpes encephalopathy --continue acyclovir Seizure disorder --continue clonazepam, clobazam, phenobarbital, lamictal Hypomagnesemia --replete Functional quadriplegia --profoundly retarded --extremities shortened and contracted --dependent for all ADLs FEN Fluids/Nutrition: restart tube feeds/water Electrolytes: replete as indicated DVT prophylaxis: subq heparin Dispo: continues to require inpatient care. Full code. Visit type - Emergency Visit Emergency Visit: Yes ED Registration Date: 04/25/17 Care time: The patient presented to the Emergency Department on the above date and was hospitalized for further evaluation of their emergent condition. - New Patient This patient is new to me today: Yes Date on this admission: 04/29/17 - Critical Care Critical Care patient: Yes Total Critical Care Time (in minutes): 35 Critical Care Statement: The care of this patient involved high complexity decision making to prevent further life threatening deterioration of the patient 's condition and/or to evaluate & treat vital organ system(s) failure or risk of failure.
[2017-04-29] MEDS: MUPIROCIN 2% TOPICAL OINTMENT FOR DECOLONIZATION NS SCH (09:42)
[2017-04-29] MEDS: HEPARIN NA (PORCINE) 5,000 UNITS/ML 1ML VIAL SQ SCH ×2 (09:42→22:02)
[2017-04-29] MEDS: lamoTRIgine 100 MG TABLET (FP) PO SCH ×2 (09:42→22:02)
[2017-04-29] MEDS: BACLOFEN 10 MG TABLET (FP) GT SCH ×2 (09:42→22:02)
[2017-04-29] MEDS: PHENobarbital 30 MG TABLET GT SCH ×2 (09:43→22:03)
[2017-04-29] MEDS: RANITIDINE HCL 150 MG/10 ML UNIT-DOSE GT SCH ×2 (09:43→22:00)
[2017-04-29] MEDS: cloBAZam 10 MG TABLET PO SCH (09:43)
[2017-04-29] MEDS: ACYCLOVIR 200 MG/5 ML GT SCH ×2 (09:44→22:01)
--- NOTE | 2017-04-29 11:23 | PN ---
Physical Exam: SUBJECTIVE: Patient seen and examined sitting up in bed; responds to questioning ; alert; oriented; afrebrile; no new complaints. Denies chills, n, v, sob, cp, abdominal pain, constipation, diarrhea. OBJECTIVE: Vital Signs Period Temp Pulse Resp BP Sys/Linares Pulse Ox Last 24 Hr 96.9 F-99.1 F 80-119 22-36 104-126/45-75 95-100 GENERAL: The patient is awake, alert, and fully oriented, in no acute distress. LUNGS: decreased Breath sounds equal, clear to auscultation bilaterally, no wheezes, no crackles, no accessory muscle use. HEART: Regular rate and rhythm, S1, S2 without murmur, rub or gallop. ABDOMEN: Soft, nontender, nondistended, normoactive bowel sounds, no guarding, no rebound, no hepatosplenomegaly, no masses. EXTREMITIES: 2+ pulses, warm, well-perfused, no edema. contracted extremities NEUROLOGICAL: cognitive impairment; mentally retarded Laboratory Results - last 24 hr 04/29/17 04/29/17 06:20 06:20 WBC 13.1 H RBC 3.72 L Hgb 12.2 Hct 36.2 MCV 97.1 H MCH 32.8 MCHC 33.8 RDW 16.9 H Plt Count 179 D MPV 10.0 Neutrophils % 82.2 Lymphocytes % 9.6 D Monocytes % 7.0 Eosinophils % 1.2 Basophils % 0.0 Sodium 140 Potassium 3.6 Chloride 105 Carbon Dioxide 26 Anion Gap 9 BUN 3 L D Creatinine 0.4 L Creat Clearance w eGFR > 60 Random Glucose 91 Calcium 8.1 L Phosphorus 3.2 D Magnesium 1.5 L Total Bilirubin 0.6 D AST 48 H D ALT 55 Alkaline Phosphatase 200 H Total Protein 6.9 Albumin 2.7 L Active Medications Generic Name Dose Route Start Last Admin Trade Name Freq PRN Reason Stop Dose Admin Acetaminophen 650 mg 04/26/17 14:11 04/28/17 05:45 Tylenol Oral Solution - GT 650 mg Q6H PRN Administration FEVER OR PAIN Acyclovir 400 mg 04/25/17 22:00 04/29/17 09:44 Zovirax Oral Suspension - GT 400 mg BID JORGE Administration Albuterol/Ipratropium 1 amp 04/25/17 19:00 04/29/17 10:06 Duoneb - NEB 1 amp Q4HWA JORGE Administration Baclofen 10 mg 04/25/17 22:00 04/29/17 09:42 Lioresal - GT 10 mg BID JORGE Administration Chlorhexidine Gluconate 1 applic 04/25/17 22:00 04/28/17 21:29 Hibiclens For Decolonization - TP 1 applic HS JORGE Administration Clobazam 5 mg 04/26/17 10:00 04/29/17 09:43 Onfi - PO 5 mg DAILY JORGE Administration Clonazepam 1.5 mg 04/25/17 22:00 04/29/17 06:30 Klonopin - GT 1.5 mg TID JORGE Administration Heparin Sodium (Porcine) 5,000 unit 04/25/17 22:00 04/29/17 09:42 Heparin - SQ 5,000 unit BID JORGE Administration Sodium Chloride 1,000 mls @ 100 mls/hr 04/25/17 19:00 04/28/17 19:55 Normal Saline - IV Not Given ASDIR JORGE Piperacillin Sod/Tazobactam 100 mls @ 200 mls/hr 04/28/17 19:00 04/29/17 09: 43 Sod 3.375 gm/ Dextrose IVPB 05/03/17 18:59 200 mls/hr Q8H-IV JORGE Administration Protocol Lamotrigine 200 mg 04/26/17 22:00 04/29/17 09:42 Lamictal - PO 200 mg BID JORGE Administration Mupirocin 1 applic 04/25/17 22:00 04/29/17 09:42 Bactroban Ointment (For Decolonization) - NS 04/30/17 21:59 1 applic BID JORGE Administration Phenobarbital 45 mg 04/25/17 22:00 04/29/17 09:43 Phenobarbital - GT 45 mg BID JORGE Administration Ranitidine HCl 75 mg 04/25/17 22:00 04/29/17 09:43 Zantac Oral Solution - GT 75 mg BID JORGE Administration Sodium Chloride 900 ml 04/25/17 13:40 Normal Saline - IV Q20M PRN MAP<65mm Hg OR SBP <90 ASSESSMENT/PLAN: 22 year old female from [facility], with acute hypoxic respiratory failure secondary to pneumonia. #acute on chronic hypoxic respiratory failure secondary to pneumonia, septic -cont IV antibiotics zosyn; -afebrile; white count trending up -f/u gram stain and sputum cultures -blood prelim negative -aspiration precaution -maintain oxygen >92%; @ 2L NC -inhaled bronchodilators #seizure disorder: -continue clonazepam, clobazam, phenobarbital, lamictal #h/o asthma -inhaled broncodilators #herpes encephalopathy: -cont IV acyclovir -ivf #functional quadreplegia: DIET: cont tube feeds Disposition: stable to transfer to floor Problem List - Problems (1) Acute and chronic respiratory failure with hypoxia Code(s): J96.21 - ACUTE AND CHRONIC RESPIRATORY FAILURE WITH HYPOXIA (2) HCAP (healthcare-associated pneumonia) Code(s): J18.9 - PNEUMONIA, UNSPECIFIED ORGANISM (3) Sepsis Code(s): A41.9 - SEPSIS, UNSPECIFIED ORGANISM (4) Respiratory failure Code(s): J96.90 - RESPIRATORY FAILURE, UNSP, UNSP W HYPOXIA OR HYPERCAPNIA Qualifiers: Chronicity: acute Respiratory failure complication: hypoxia Qualified Code(s): J96.01 - Acute respiratory failure with hypoxia (5) Seizure Code(s): R56.9 - UNSPECIFIED CONVULSIONS (6) Asthma Code(s): J45.909 - UNSPECIFIED ASTHMA, UNCOMPLICATED (7) Profound mental retardation Code(s): F73 - PROFOUND INTELLECTUAL DISABILITIES (8) Aspiration pneumonia Code(s): J69.0 - PNEUMONITIS DUE TO INHALATION OF FOOD AND VOMIT (9) Severe sepsis Code(s): A41.9 - SEPSIS, UNSPECIFIED ORGANISM; R65.20 - SEVERE SEPSIS WITHOUT SEPTIC SHOCK Visit type - Emergency Visit Emergency Visit: Yes ED Registration Date: 04/25/17 Care time: The patient presented to the Emergency Department on the above date and was hospitalized for further evaluation of their emergent condition. - New Patient This patient is new to me today: Yes Date on this admission: 04/29/17 - Critical Care Critical Care patient: Yes Total Critical Care Time (in minutes): 35 Critical Care Statement: The care of this patient involved high complexity decision making to prevent further life threatening deterioration of the patient 's condition and/or to evaluate & treat vital organ system(s) failure or risk of failure.
--- NOTE | 2017-04-29 11:42 | PN ---
Teaching Attending Note Name of Resident: Susy Burkett ATTENDING PHYSICIAN STATEMENT I saw and evaluated the patient. I reviewed the resident's note and discussed the case with the resident. I agree with the resident's findings and plan as documented. SUBJECTIVE: Pt seen and examined in the ICU. Saturating well on 70% face tent. No further fevers. Respiratory effort improving. OBJECTIVE: Last Vital Signs Temp Pulse Resp BP Pulse Ox 99.1 F 119 H 29 H 126/45 95 04/29/17 10:00 04/29/17 10:00 04/29/17 10:00 04/29/17 10:00 04/29/17 10:06 Intake & Output 04/26/17 04/27/17 04/28/17 04/29/17 23:59 23:59 23:59 23:59 Intake Total 2650 2300 3482 700 Output Total 1600 400 Balance 2650 2300 1882 300 Weight 98 lb 14.4 oz 98 lb 8 oz 99 lb 12.8 oz 104 lb 1.6 oz Gen: less tachypneic Heart: tachycardic, regular Lung: scattered rhonchi Abd: soft, nontender Ext: contracted, trace edema CBC, BMP 04/29/17 06:20 04/29/17 06:20 Active Medications Acetaminophen (Tylenol Oral Solution -) 650 mg GT Q6H PRN PRN Reason: FEVER OR PAIN Last Admin: 04/28/17 05:45 Dose: 650 mg Acyclovir (Zovirax Oral Suspension -) 400 mg GT BID [facility] Last Admin: 04/29/17 09:44 Dose: 400 mg Albuterol/Ipratropium (Duoneb -) 1 amp NEB Q4HWA [facility] Last Admin: 04/29/17 10:06 Dose: 1 amp Baclofen (Lioresal -) 10 mg GT BID [facility] Last Admin: 04/29/17 09:42 Dose: 10 mg Chlorhexidine Gluconate (Hibiclens For Decolonization -) 1 applic TP HS [facility] Last Admin: 04/28/17 21:29 Dose: 1 applic Clobazam (Onfi -) 5 mg PO DAILY [facility] Last Admin: 04/29/17 09:43 Dose: 5 mg Clonazepam (Klonopin -) 1.5 mg GT TID [facility] Last Admin: 04/29/17 06:30 Dose: 1.5 mg Heparin Sodium (Porcine) (Heparin -) 5,000 unit SQ BID [facility] Last Admin: 04/29/17 09:42 Dose: 5,000 unit Sodium Chloride (Normal Saline -) 1,000 mls @ 100 mls/hr IV ASDIR [facility] Last Admin: 04/28/17 19:55 Dose: Not Given Piperacillin Sod/Tazobactam (Sod 3.375 gm/ Dextrose) 100 mls @ 200 mls/hr IVPB Q8H-IV JORGE PRN Reason: Protocol Stop: 05/03/17 18:59 Last Admin: 04/29/17 09:43 Dose: 200 mls/hr Lamotrigine (Lamictal -) 200 mg PO BID [facility] Last Admin: 04/29/17 09:42 Dose: 200 mg Mupirocin (Bactroban Ointment (For Decolonization) -) 1 applic NS BID [facility] Stop: 04/30/17 21:59 Last Admin: 04/29/17 09:42 Dose: 1 applic Phenobarbital (Phenobarbital -) 45 mg GT BID [facility] Last Admin: 04/29/17 09:43 Dose: 45 mg Ranitidine HCl (Zantac Oral Solution -) 75 mg GT BID [facility] Last Admin: 04/29/17 09:43 Dose: 75 mg Sodium Chloride (Normal Saline -) 900 ml IV Q20M PRN PRN Reason: MAP<65mm Hg OR SBP <90 ASSESSMENT AND PLAN: Acute on Chronic Hypoxic Respiratory Failure Pneumonia Sepsis Mental Retardation Seizure Disorder h/o Asthma - continue antibiotics - start enteral feeds - d/c IVF if tolerating feeds - aspiration precautions - inhaled bronchodilators - taper FiO2 to keep SpO2 >90% - DVT prophylaxis - can monitor on floor critical care time spent in reviewing chart, evaluating patient and formulating plan 35 min
[2017-04-29] MEDS ORDERED: PT OWN MED DRAWER 7, Y5N ONE ×2 (17:45→21:54)
[2017-04-29] MEDS ORDERED: ACETAMINOPHEN 650 MG/20.3 ML ORAL SOLUTION (CUPS) GT PRN (19:00)
[2017-04-29] MEDS ORDERED: SODIUM CHLORIDE 0.9% 1000 ML INFUS.BAG IV PRN (19:00)
[2017-04-29] MEDS ORDERED: MUPIROCIN 2% TOPICAL OINTMENT FOR DECOLONIZATION NS SCH (22:00)
[2017-04-30] MEDS: SODIUM CHLORIDE 1,000 ML IV SCH ×2 (01:12→10:58)
[2017-04-30] MEDS: PIPERACILLIN/TAZOB 3.375 GM 3.375 GM in DEXTROSE 5%-WATER - 100 ML IVPB SCH ×3 (01:12→17:28)
[2017-04-30] MEDS: clonazePAM 0.5 MG TABLET GT SCH ×3 (05:28→22:34)
[2017-04-30] MEDS ORDERED: PT OWN MED DRAWER 7, Y5N ONE ×4 (05:48→22:26)
[2017-04-30] MEDS: ALBUTEROL SO4 2.5/IPRATROPIUM 0.5 INH SOL 3 ML VIAL.NEB. NEB SCH ×4 (07:28→22:10)
[2017-04-30 08:38] LABS: BASO % 0.4 % (0-2.0); EOS % 2.4 % (0-4.5); MCH 32.1 pg (25.7-33.7); MCHC 33.3 g/dl (32.0-35.9); MEAN CELL VOLUME 96.2 fl (80-96); MEAN PLT VOLUME 9.1 fl (7.5-11.1); NEUT % 42.1 % (42.8-82.8); PLATELET COUNT 219 K/MM3 (134-434); RDW 16.5 % (11.9-15.9); WHITE BLOOD COUNT 5.3 K/mm3 (4.0-10.0)
[2017-04-30 09:04] LABS: ALBUMIN 2.4 g/dl (3.4-5.0); ANION GAP 7 (8-16); CALCIUM 7.9 mg/dL (8.5-10.1); CO2 28 mmol/L (21-32); CREATININE 0.4 mg/dL (0.7-1.3); GLUCOSE,RANDOM 102 mg/dL (74-106); MAGNESIUM 1.9 mg/dL (1.8-2.4); SGOT/AST 28 U/L (15-37); SGPT/ALT 41 U/L (12-78)
[2017-04-30 09:06] LABS: ALK PHOS 216 U/L (45-117); BILIRUBIN,TOTAL 0.4 mg/dL (0.2-1.0); TOT PROT 6.3 g/dl (6.4-8.2)
[2017-04-30] MEDS: RANITIDINE HCL 150 MG/10 ML UNIT-DOSE GT SCH ×2 (10:45→22:35)
[2017-04-30] MEDS: cloBAZam 10 MG TABLET PO SCH (10:46)
[2017-04-30] MEDS: HEPARIN NA (PORCINE) 5,000 UNITS/ML 1ML VIAL SQ SCH ×2 (10:46→22:37)
[2017-04-30] MEDS: ACYCLOVIR 200 MG/5 ML GT SCH ×2 (10:46→22:36)
[2017-04-30] MEDS: lamoTRIgine 100 MG TABLET (FP) PO SCH ×2 (10:46→22:35)
[2017-04-30] MEDS: BACLOFEN 10 MG TABLET (FP) GT SCH ×2 (10:47→22:34)
[2017-04-30] MEDS: PHENobarbital 30 MG TABLET GT SCH ×2 (10:47→22:36)
--- NOTE | 2017-04-30 10:56 | PN ---
Progress Note (short form) - Note Progress Note: Remained stable overnight. NAD on supplemental O2. Breathing is non-labored. Intake & Output 04/27/17 04/28/17 04/29/17 04/30/17 23:59 23:59 23:59 23:59 Intake Total 2300 3482 2250 1200 Output Total 1600 2300 Balance 2300 1882 -50 1200 Weight 98 lb 8 oz 99 lb 12.8 oz 104 lb 1.6 oz 103 lb 8 oz Last Vital Signs Temp Pulse Resp BP Pulse Ox 97.4 F L 82 24 103/37 95 04/30/17 07:42 04/30/17 07:42 04/30/17 07:42 04/30/17 07:42 04/29/17 21:00 Active Medications Acetaminophen (Tylenol Oral Solution -) 650 mg GT Q6H PRN PRN Reason: FEVER OR PAIN Acyclovir (Zovirax Oral Suspension -) 400 mg GT BID [facility] Last Admin: 04/29/17 22:01 Dose: 400 mg Albuterol/Ipratropium (Duoneb -) 1 amp NEB Q4HWA [facility] Last Admin: 04/30/17 07:28 Dose: 1 amp Baclofen (Lioresal -) 10 mg GT BID [facility] Last Admin: 04/29/17 22:02 Dose: 10 mg Clobazam (Onfi -) 5 mg PO DAILY [facility] Clonazepam (Klonopin -) 1.5 mg GT TID [facility] Last Admin: 04/30/17 05:28 Dose: 1.5 mg Heparin Sodium (Porcine) (Heparin -) 5,000 unit SQ BID [facility] Last Admin: 04/29/17 22:02 Dose: 5,000 unit Piperacillin Sod/Tazobactam (Sod 3.375 gm/ Dextrose) 100 mls @ 200 mls/hr IVPB Q8H-IV JORGE PRN Reason: Protocol Stop: 05/03/17 18:59 Last Admin: 04/30/17 01:12 Dose: 200 mls/hr Sodium Chloride (Normal Saline -) 1,000 mls @ 100 mls/hr IV ASDIR [facility] Last Admin: 04/30/17 01:12 Dose: 100 mls/hr Lamotrigine (Lamictal -) 200 mg PO BID [facility] Last Admin: 04/29/17 22:02 Dose: 200 mg Phenobarbital (Phenobarbital -) 45 mg GT BID [facility] Last Admin: 04/29/17 22:03 Dose: 45 mg Ranitidine HCl (Zantac Oral Solution -) 75 mg GT BID [facility] Last Admin: 04/29/17 22:00 Dose: 75 mg Sodium Chloride (Normal Saline -) 900 ml IV Q20M PRN PRN Reason: MAP<65mm Hg OR SBP <90 Gen: Mildly tachypneic at rest Heart: S1S2, regular Lung: scattered rhonchi Right > left Abd: soft, nontender Ext: contracted, trace edema Laboratory Results - last 24 hr 04/30/17 04/30/17 07:30 07:30 WBC 5.3 D RBC 3.31 L Hgb 10.6 L D Hct 31.9 L MCV 96.2 H MCH 32.1 MCHC 33.3 RDW 16.5 H Plt Count 219 D MPV 9.1 Neutrophils % 42.1 L D Lymphocytes % 47.8 H D Monocytes % 7.3 Eosinophils % 2.4 D Basophils % 0.4 D Sodium 146 H Potassium 3.4 L Chloride 111 H Carbon Dioxide 28 Anion Gap 7 L BUN 3 L Creatinine 0.4 L Creat Clearance w eGFR > 60 Random Glucose 102 Calcium 7.9 L Magnesium 1.9 D Total Bilirubin 0.4 D AST 28 D ALT 41 D Alkaline Phosphatase 216 H Total Protein 6.3 L Albumin 2.4 L ASSESSMENT AND PLAN: Acute on Chronic Hypoxic Respiratory Failure Pneumonia Sepsis Mental Retardation Seizure Disorder h/o Asthma - Antibiotics per ID - Enteral feeds - Monitor off IVF - Aspiration precautions - Inhaled bronchodilators - Taper FiO2 to keep SpO2 >90% - VTE prophylaxis Dr Quiñones
--- NOTE | 2017-04-30 20:16 | PN ---
Physical Exam: SUBJECTIVE: Patient seen and examined. Appears in no acute distress. OBJECTIVE: Vital Signs Period Temp Pulse Resp BP Sys/Linares Pulse Ox Last 24 Hr 97.4 F-99.6 F 82-86 24-24 99-116/37-81 93-96 PE Neuro: alert, awake, non verbal Pulm: basilar rales, + face tent CV: s1 s2 rrr Abd: peg tube soft nd Ext: contractures no le edema Laboratory Results - last 24 hr 04/30/17 04/30/17 07:30 07:30 WBC 5.3 D RBC 3.31 L Hgb 10.6 L D Hct 31.9 L MCV 96.2 H MCH 32.1 MCHC 33.3 RDW 16.5 H Plt Count 219 D MPV 9.1 Neutrophils % 42.1 L D Lymphocytes % 47.8 H D Monocytes % 7.3 Eosinophils % 2.4 D Basophils % 0.4 D Sodium 146 H Potassium 3.4 L Chloride 111 H Carbon Dioxide 28 Anion Gap 7 L BUN 3 L Creatinine 0.4 L Creat Clearance w eGFR > 60 Random Glucose 102 Calcium 7.9 L Magnesium 1.9 D Total Bilirubin 0.4 D AST 28 D ALT 41 D Alkaline Phosphatase 216 H Total Protein 6.3 L Albumin 2.4 L Active Medications Generic Name Dose Route Start Last Admin Trade Name Debbie PRN Reason Stop Dose Admin Acetaminophen 650 mg 04/29/17 19:00 Tylenol Oral Solution - GT Q6H PRN FEVER OR PAIN Acyclovir 400 mg 04/29/17 22:00 04/30/17 10:46 Zovirax Oral Suspension - GT 400 mg BID JORGE Administration Albuterol/Ipratropium 1 amp 04/29/17 22:00 04/30/17 14:00 Duoneb - NEB 1 amp Q4HWA JORGE Administration Baclofen 10 mg 04/29/17 22:00 04/30/17 10:47 Lioresal - GT 10 mg BID JORGE Administration Clobazam 5 mg 04/30/17 10:00 04/30/17 10:46 Onfi - PO 5 mg DAILY JORGE Administration Clonazepam 1.5 mg 04/29/17 22:00 04/30/17 14:52 Klonopin - GT 1.5 mg TID JORGE Administration Heparin Sodium (Porcine) 5,000 unit 04/29/17 22:00 04/30/17 10:46 Heparin - SQ 5,000 unit BID JORGE Administration Piperacillin Sod/Tazobactam 100 mls @ 200 mls/hr 04/30/17 02:00 04/30/17 17: 28 Sod 3.375 gm/ Dextrose IVPB 05/03/17 18:59 200 mls/hr Q8H-IV JORGE Administration Protocol Sodium Chloride 1,000 mls @ 100 mls/hr 04/29/17 19:00 04/30/17 10:58 Normal Saline - IV 100 mls/hr ASDIR JORGE Administration Lamotrigine 200 mg 04/29/17 22:00 04/30/17 10:46 Lamictal - PO 200 mg BID JORGE Administration Phenobarbital 45 mg 04/29/17 22:00 04/30/17 10:47 Phenobarbital - GT 45 mg BID JORGE Administration Ranitidine HCl 75 mg 04/29/17 22:00 04/30/17 10:45 Zantac Oral Solution - GT 75 mg BID JORGE Administration Sodium Chloride 900 ml 04/29/17 19:00 Normal Saline - IV Q20M PRN MAP<65mm Hg OR SBP <90 Microbiology 04/28/17 10:50 Sputum - Expectorated Gram Stain - Final 04/28/17 10:50 Sputum - Expectorated Sputum Culture - Preliminary NORMAL RESPIRATORY CHENCHO 04/25/17 13:50 Blood - Peripheral Venous Blood Culture - Final NO GROWTH AFTER 5 DAYS INCUBATION 04/25/17 13:50 Blood - Peripheral Venous Blood Culture - Final NO GROWTH AFTER 5 DAYS INCUBATION 04/27/17 06:00 Urine For Antigen Detection Legionella Antigen - Final 04/27/17 06:00 Urine For Antigen Detection Streptococcus pneumoniae Antigen (M - Final 04/25/17 15:15 Urine - Urine - Catheterized Urine Culture - Final NO GROWTH OBTAINED 04/25/17 15:40 Nasopharyngeal Swab Respiratory Syncytial Virus Ag - Final 04/25/17 15:40 Nasopharyngeal Swab Influenza Types A,B Antigen (VANCE) - Final 04/25/17 15:40 Nasopharyngeal Swab - Final Assessment: 22 year old male with PMH significant for profound mental retardation, herpes encephalopathy, seizure disorder, and asthma on home O2, who presented to the ED with acute respiratory distress, fever, cough. Plan: 1. Sepsis likely secondary to aspiration pneumonia - Afebrile, wbc wnl - Continue Zosyn - Stopped azithro 04/28 - Sputum cx negative 2. Acute on chronic respiratory failure - Maintain O2 sats >92% - Duonebs 3. Herpes encephalopathy - Continue acyclovir 4. Seizure disorder - Continue clonazepam, clobazam, phenobarbital, lamictal 5. Hypomagnesemia - Resolved 6. Functional quadriplegia due to profound retardation - Extremities shortened and contracted - Dependent for all ADLs 7. Nutrition: restart tube feeds/water 8. DVT prophylaxis: subq heparin Visit type - Emergency Visit Emergency Visit: Yes ED Registration Date: 04/25/17 Care time: The patient presented to the Emergency Department on the above date and was hospitalized for further evaluation of their emergent condition. - New Patient This patient is new to me today: Yes Date on this admission: 05/01/17 - Critical Care Critical Care patient: No
[2017-05-01] MEDS: PIPERACILLIN/TAZOB 3.375 GM 3.375 GM in DEXTROSE 5%-WATER - 100 ML IVPB SCH ×3 (01:13→18:35)
[2017-05-01] MEDS: clonazePAM 0.5 MG TABLET GT SCH ×3 (06:07→21:51)
[2017-05-01] MEDS: ALBUTEROL SO4 2.5/IPRATROPIUM 0.5 INH SOL 3 ML VIAL.NEB. NEB SCH ×5 (06:55→21:56)
[2017-05-01] MEDS: HEPARIN NA (PORCINE) 5,000 UNITS/ML 1ML VIAL SQ SCH ×2 (11:25→21:52)
[2017-05-01] MEDS: lamoTRIgine 100 MG TABLET (FP) PO SCH ×2 (11:25→21:51)
[2017-05-01] MEDS: PHENobarbital 30 MG TABLET GT SCH ×2 (11:26→21:51)
[2017-05-01] MEDS: cloBAZam 10 MG TABLET PO SCH (11:26)
[2017-05-01] MEDS: BACLOFEN 10 MG TABLET (FP) GT SCH ×2 (11:26→21:52)
[2017-05-01] MEDS: RANITIDINE HCL 150 MG/10 ML UNIT-DOSE GT SCH ×2 (11:27→21:52)
[2017-05-01] MEDS: ACYCLOVIR 200 MG/5 ML GT SCH ×2 (11:29→21:53)
[2017-05-01] MEDS: SODIUM CHLORIDE 1,000 ML IV SCH (11:31)
--- NOTE | 2017-05-01 13:58 | PN ---
Physical Exam: SUBJECTIVE: Patient seen and examined. He is smiling today. Still requires face tent, no fevers OBJECTIVE: Vital Signs Period Temp Pulse Resp BP Sys/Linares Pulse Ox Last 24 Hr 98.3 F-99.6 F 71-86 22-24 99-123/42-61 93-93 PE Neuro: alert, awake, non verbal Pulm: basilar rales, + face tent CV: s1 s2 rrr Abd: peg tube soft nd Ext: contractures no le edema Active Medications Generic Name Dose Route Start Last Admin Trade Name Freq PRN Reason Stop Dose Admin Acetaminophen 650 mg 04/29/17 19:00 Tylenol Oral Solution - GT Q6H PRN FEVER OR PAIN Acyclovir 400 mg 04/29/17 22:00 05/01/17 11:29 Zovirax Oral Suspension - GT 400 mg BID JORGE Administration Albuterol/Ipratropium 1 amp 04/29/17 22:00 05/01/17 10:45 Duoneb - NEB 1 amp Q4HWA JORGE Administration Baclofen 10 mg 04/29/17 22:00 05/01/17 11:26 Lioresal - GT 10 mg BID JORGE Administration Clobazam 5 mg 04/30/17 10:00 05/01/17 11:26 Onfi - PO 5 mg DAILY JORGE Administration Clonazepam 1.5 mg 04/29/17 22:00 05/01/17 06:07 Klonopin - GT 1.5 mg TID JORGE Administration Heparin Sodium (Porcine) 5,000 unit 04/29/17 22:00 05/01/17 11:25 Heparin - SQ 5,000 unit BID JORGE Administration Piperacillin Sod/Tazobactam 100 mls @ 200 mls/hr 04/30/17 02:00 05/01/17 11: 29 Sod 3.375 gm/ Dextrose IVPB 05/03/17 18:59 200 mls/hr Q8H-IV JORGE Administration Protocol Sodium Chloride 1,000 mls @ 100 mls/hr 04/29/17 19:00 05/01/17 11:31 Normal Saline - IV 100 mls/hr ASDIR JORGE Administration Lamotrigine 200 mg 04/29/17 22:00 05/01/17 11:25 Lamictal - PO 200 mg BID JORGE Administration Phenobarbital 45 mg 04/29/17 22:00 05/01/17 11:26 Phenobarbital - GT 45 mg BID JORGE Administration Ranitidine HCl 75 mg 04/29/17 22:00 05/01/17 11:27 Zantac Oral Solution - GT 75 mg BID JORGE Administration Sodium Chloride 900 ml 04/29/17 19:00 Normal Saline - IV Q20M PRN MAP<65mm Hg OR SBP <90 Assessment: 22 year old male with PMH significant for profound mental retardation, herpes encephalopathy, seizure disorder, and asthma on home O2, who presented to the ED with acute respiratory distress, fever, cough. Plan: 1. Sepsis likely secondary to aspiration pneumonia - Continue Zosyn per ID - Stopped azithro 04/28 - Stop IVF 2. Acute on chronic respiratory failure - Maintain O2 sats >92% - [facility] 3. Herpes encephalopathy - Continue acyclovir 4. Seizure disorder - Continue clonazepam, clobazam, phenobarbital, lamictal 5. Hypomagnesemia - Resolved 6. Functional quadriplegia due to profound retardation - Extremities shortened and contracted - Dependent for all ADLs 7. Nutrition: - Tube feeds/water 8. DVT prophylaxis: subq heparin Visit type - Emergency Visit Emergency Visit: Yes ED Registration Date: 04/25/17 Care time: The patient presented to the Emergency Department on the above date and was hospitalized for further evaluation of their emergent condition. - New Patient This patient is new to me today: No - Critical Care Critical Care patient: No
--- NOTE | 2017-05-01 14:40 | PN ---
Progress Note, Physician History of Present Illness: PULMONARY AWAKE,COMFORTABLE ON 70% FACE TENT - Current Medication List Current Medications: Active Medications Acetaminophen (Tylenol Oral Solution -) 650 mg GT Q6H PRN PRN Reason: FEVER OR PAIN Acyclovir (Zovirax Oral Suspension -) 400 mg GT BID [facility] Last Admin: 05/01/17 11:29 Dose: 400 mg Albuterol/Ipratropium (Duoneb -) 1 amp NEB Q4HWA [facility] Last Admin: 05/01/17 10:45 Dose: 1 amp Baclofen (Lioresal -) 10 mg GT BID [facility] Last Admin: 05/01/17 11:26 Dose: 10 mg Clobazam (Onfi -) 5 mg PO DAILY [facility] Last Admin: 05/01/17 11:26 Dose: 5 mg Clonazepam (Klonopin -) 1.5 mg GT TID [facility] Last Admin: 05/01/17 14:31 Dose: 1.5 mg Heparin Sodium (Porcine) (Heparin -) 5,000 unit SQ BID [facility] Last Admin: 05/01/17 11:25 Dose: 5,000 unit Piperacillin Sod/Tazobactam (Sod 3.375 gm/ Dextrose) 100 mls @ 200 mls/hr IVPB Q8H-IV JORGE PRN Reason: Protocol Stop: 05/03/17 18:59 Last Admin: 05/01/17 11:29 Dose: 200 mls/hr Lamotrigine (Lamictal -) 200 mg PO BID [facility] Last Admin: 05/01/17 11:25 Dose: 200 mg Phenobarbital (Phenobarbital -) 45 mg GT BID [facility] Last Admin: 05/01/17 11:26 Dose: 45 mg Ranitidine HCl (Zantac Oral Solution -) 75 mg GT BID [facility] Last Admin: 05/01/17 11:27 Dose: 75 mg - Objective Vital Signs: Vital Signs Temperature 98.5 F 05/01/17 05:54 Pulse Rate 71 05/01/17 05:54 Respiratory Rate 22 05/01/17 05:54 Blood Pressure 104/52 05/01/17 05:54 O2 Sat by Pulse Oximetry (%) 93 L 04/30/17 21:00 Constitutional: Yes: Calm, Thin Eyes: Yes: WNL HENT: Yes: WNL Neck: Yes: WNL Cardiovascular: Yes: Regular Rate and Rhythm, S1, S2 Respiratory: Yes: Rhonchi (SCATTERED [place] RHONCHI) Gastrointestinal: Yes: Normal Bowel Sounds, Soft Extremities: Yes: Other (CONTRACTED) Labs: CBC, BMP Problem List - Problems (1) HCAP (healthcare-associated pneumonia) Code(s): J18.9 - PNEUMONIA, UNSPECIFIED ORGANISM (2) Sepsis Code(s): A41.9 - SEPSIS, UNSPECIFIED ORGANISM (3) Pneumonia Code(s): J18.9 - PNEUMONIA, UNSPECIFIED ORGANISM (4) Respiratory failure Code(s): J96.90 - RESPIRATORY FAILURE, UNSP, UNSP W HYPOXIA OR HYPERCAPNIA Qualifiers: Chronicity: acute Respiratory failure complication: hypoxia Qualified Code(s): J96.01 - Acute respiratory failure with hypoxia Assessment/Plan ASSESSMENT AND PLAN: Acute on Chronic Hypoxic Respiratory Failure Pneumonia Sepsis Mental Retardation Seizure Disorder h/o Asthma - Antibiotics per ID - Enteral feeds - Aspiration precautions - Inhaled bronchodilators - Taper FiO2 to keep SpO2 >90% - VTE prophylaxis - f/u chest x-rays DR VILLALTA
--- NOTE | 2017-05-01 16:54 | PN ---
Progress Note, Physician History of Present Illness: Awake, non verbal Appears comfortable on face mask Afebrile WBC WNL CXR still showed extensive R infiltrate BC (-) Sputum c/s normal osiris Legionella ag (-) - Current Medication List Current Medications: Active Medications Acetaminophen (Tylenol Oral Solution -) 650 mg GT Q6H PRN PRN Reason: FEVER OR PAIN Acyclovir (Zovirax Oral Suspension -) 400 mg GT BID [facility] Last Admin: 05/01/17 11:29 Dose: 400 mg Albuterol/Ipratropium (Duoneb -) 1 amp NEB Q4HWA [facility] Last Admin: 05/01/17 10:45 Dose: 1 amp Baclofen (Lioresal -) 10 mg GT BID [facility] Last Admin: 05/01/17 11:26 Dose: 10 mg Clobazam (Onfi -) 5 mg PO DAILY [facility] Last Admin: 05/01/17 11:26 Dose: 5 mg Clonazepam (Klonopin -) 1.5 mg GT TID [facility] Last Admin: 05/01/17 14:31 Dose: 1.5 mg Heparin Sodium (Porcine) (Heparin -) 5,000 unit SQ BID [facility] Last Admin: 05/01/17 11:25 Dose: 5,000 unit Piperacillin Sod/Tazobactam (Sod 3.375 gm/ Dextrose) 100 mls @ 200 mls/hr IVPB Q8H-IV JORGE PRN Reason: Protocol Stop: 05/03/17 18:59 Last Admin: 05/01/17 11:29 Dose: 200 mls/hr Lamotrigine (Lamictal -) 200 mg PO BID [facility] Last Admin: 05/01/17 11:25 Dose: 200 mg Phenobarbital (Phenobarbital -) 45 mg GT BID [facility] Last Admin: 05/01/17 11:26 Dose: 45 mg Ranitidine HCl (Zantac Oral Solution -) 75 mg GT BID [facility] Last Admin: 05/01/17 11:27 Dose: 75 mg - Objective Vital Signs: Vital Signs Temperature 98.0 F 05/01/17 15:03 Pulse Rate 87 05/01/17 15:03 Respiratory Rate 22 05/01/17 15:03 Blood Pressure 103/63 05/01/17 15:03 O2 Sat by Pulse Oximetry (%) 93 L 04/30/17 21:00 Constitutional: Yes: No Distress Cardiovascular: Yes: Regular Rate and Rhythm, S1, S2 Respiratory: Yes: Rhonchi Gastrointestinal: Yes: Normal Bowel Sounds, Soft Edema: Yes Labs: CBC, BMP 04/30/17 07:30 04/30/17 07:30 INR, PTT INR 1.15 (0.82-1.09) H 04/25/17 15:00 Assessment/Plan HCAP Day 6 antibiotics Leukocytosis- resolved Continue zosyn Follow up CXR
[2017-05-01] MEDS ORDERED: PT OWN MED DRAWER 7, Y5N ONE (21:48)
[2017-05-02] MEDS: PIPERACILLIN/TAZOB 3.375 GM 3.375 GM in DEXTROSE 5%-WATER - 100 ML IVPB SCH ×2 (01:29→10:30)
[2017-05-02] MEDS: clonazePAM 0.5 MG TABLET GT SCH ×3 (06:01→22:10)
[2017-05-02] MEDS: ALBUTEROL SO4 2.5/IPRATROPIUM 0.5 INH SOL 3 ML VIAL.NEB. NEB SCH ×5 (06:35→22:27)
[2017-05-02 07:41] LABS: BASO % 0.5 % (0-2.0); EOS % 0.3 % (0-4.5); LYMPH # 3.1 (8-40); MCH 32.2 pg (25.7-33.7); MCHC 33.3 g/dl (32.0-35.9); MEAN CELL VOLUME 96.7 fl (80-96); MEAN PLT VOLUME 8.4 fl (7.5-11.1); MONO # 0.5 # (3.8-10.2); NEUT # 1.9 # (42.8-82.8); NEUT % 34.5 % (42.8-82.8); PLATELET COUNT 325 K/MM3 (134-434); RDW 16.7 % (11.9-15.9); WHITE BLOOD COUNT 5.5 K/mm3 (4.0-10.0)
[2017-05-02 08:07] LABS: ANION GAP 9 (8-16); CALCIUM 8.2 mg/dL (8.5-10.1); CO2 27 mmol/L (21-32); CREATININE 0.5 mg/dL (0.7-1.3); GLUCOSE,RANDOM 96 mg/dL (74-106)
[2017-05-02] MEDS ORDERED: PT OWN MED DRAWER 7, Y5N ONE ×4 (08:16→22:09)
[2017-05-02] MEDS: HEPARIN NA (PORCINE) 5,000 UNITS/ML 1ML VIAL SQ SCH ×2 (10:30→22:09)
[2017-05-02] MEDS: cloBAZam 10 MG TABLET PO SCH (10:31)
[2017-05-02] MEDS: lamoTRIgine 100 MG TABLET (FP) PO SCH ×2 (10:31→22:11)
[2017-05-02] MEDS: BACLOFEN 10 MG TABLET (FP) GT SCH ×2 (10:32→22:10)
[2017-05-02] MEDS: PHENobarbital 30 MG TABLET GT SCH ×2 (10:33→22:10)
[2017-05-02] MEDS: RANITIDINE HCL 150 MG/10 ML UNIT-DOSE GT SCH ×2 (10:36→22:09)
[2017-05-02] MEDS: ACYCLOVIR 200 MG/5 ML GT SCH ×2 (10:37→22:10)
--- NOTE | 2017-05-02 10:42 | PN ---
Progress Note, Physician History of Present Illness: Awake, smiling Appears comfortable on face mask Afebrile WBC WNL CXR rotated; R lung field clearer BC (-) Sputum c/s normal osiris Legionella ag (-) - Current Medication List Current Medications: Active Medications Acetaminophen (Tylenol Oral Solution -) 650 mg GT Q6H PRN PRN Reason: FEVER OR PAIN Acyclovir (Zovirax Oral Suspension -) 400 mg GT BID [facility] Last Admin: 05/02/17 10:37 Dose: 400 mg Albuterol/Ipratropium (Duoneb -) 1 amp NEB Q4HWA [facility] Last Admin: 05/02/17 06:35 Dose: 1 amp Baclofen (Lioresal -) 10 mg GT BID [facility] Last Admin: 05/02/17 10:32 Dose: 10 mg Clobazam (Onfi -) 5 mg PO DAILY [facility] Last Admin: 05/02/17 10:31 Dose: 5 mg Clonazepam (Klonopin -) 1.5 mg GT TID [facility] Last Admin: 05/02/17 06:01 Dose: 1.5 mg Heparin Sodium (Porcine) (Heparin -) 5,000 unit SQ BID [facility] Last Admin: 05/02/17 10:30 Dose: 5,000 unit Piperacillin Sod/Tazobactam (Sod 3.375 gm/ Dextrose) 100 mls @ 200 mls/hr IVPB Q8H-IV JORGE PRN Reason: Protocol Stop: 05/03/17 18:59 Last Admin: 05/02/17 10:30 Dose: 200 mls/hr Lamotrigine (Lamictal -) 200 mg PO BID [facility] Last Admin: 05/02/17 10:31 Dose: 200 mg Phenobarbital (Phenobarbital -) 45 mg GT BID [facility] Last Admin: 05/02/17 10:33 Dose: 45 mg Ranitidine HCl (Zantac Oral Solution -) 75 mg GT BID [facility] Last Admin: 05/02/17 10:36 Dose: 75 mg - Objective Vital Signs: Vital Signs Temperature 98.1 F 05/01/17 22:00 Pulse Rate 86 05/01/17 22:00 Respiratory Rate 20 05/01/17 22:00 Blood Pressure 102/63 05/01/17 22:00 O2 Sat by Pulse Oximetry (%) 95 05/01/17 22:00 Constitutional: Yes: No Distress Cardiovascular: Yes: Regular Rate and Rhythm, S1, S2 Respiratory: Yes: Diminished Gastrointestinal: Yes: Normal Bowel Sounds, Soft. No: Tenderness Edema: Yes Labs: CBC, BMP 05/02/17 07:05 05/02/17 07:05 INR, PTT INR 1.15 (0.82-1.09) H 04/25/17 15:00 Assessment/Plan HCAP Day 7 antibiotics Leukocytosis- resolved Substitute Augmentin via GT
--- NOTE | 2017-05-02 12:45 | PN ---
Progress Note, Physician History of Present Illness: pulmonary no distress on 70% face mask - Current Medication List Current Medications: Active Medications Acetaminophen (Tylenol Oral Solution -) 650 mg GT Q6H PRN PRN Reason: FEVER OR PAIN Acyclovir (Zovirax Oral Suspension -) 400 mg GT BID [facility] Last Admin: 05/02/17 10:37 Dose: 400 mg Albuterol/Ipratropium (Duoneb -) 1 amp NEB Q4HWA [facility] Last Admin: 05/02/17 10:00 Dose: 1 amp Amoxicillin/Clavulanate Potassium (Augmentin 250 Mg/5 Ml Oral Suspension -) 250 mg PO BID@0800,1730 [facility] Baclofen (Lioresal -) 10 mg GT BID [facility] Last Admin: 05/02/17 10:32 Dose: 10 mg Clobazam (Onfi -) 5 mg PO DAILY [facility] Last Admin: 05/02/17 10:31 Dose: 5 mg Clonazepam (Klonopin -) 1.5 mg GT TID [facility] Last Admin: 05/02/17 06:01 Dose: 1.5 mg Heparin Sodium (Porcine) (Heparin -) 5,000 unit SQ BID [facility] Last Admin: 05/02/17 10:30 Dose: 5,000 unit Lamotrigine (Lamictal -) 200 mg PO BID [facility] Last Admin: 05/02/17 10:31 Dose: 200 mg Phenobarbital (Phenobarbital -) 45 mg GT BID [facility] Last Admin: 05/02/17 10:33 Dose: 45 mg Ranitidine HCl (Zantac Oral Solution -) 75 mg GT BID [facility] Last Admin: 05/02/17 10:36 Dose: 75 mg - Objective Vital Signs: Vital Signs Temperature 98.1 F 05/01/17 22:00 Pulse Rate 86 05/02/17 12:01 Respiratory Rate 20 05/01/17 22:00 Blood Pressure 102/63 05/01/17 22:00 O2 Sat by Pulse Oximetry (%) 95 05/02/17 12:01 Constitutional: Yes: Calm, Thin Eyes: Yes: WNL HENT: Yes: WNL Neck: Yes: WNL Cardiovascular: Yes: Regular Rate and Rhythm, S1, S2 Respiratory: Yes: Rhonchi (few rhonchi) Gastrointestinal: Yes: Normal Bowel Sounds, Soft Extremities: Yes: Other (contracted) Edema: No Labs: CBC, BMP 12/23/17 07:05 05/02/17 07:05 INR, PTT INR 1.15 (0.82-1.09) H 04/25/17 15:00 Problem List - Problems (1) HCAP (healthcare-associated pneumonia) Code(s): J18.9 - PNEUMONIA, UNSPECIFIED ORGANISM (2) Sepsis Code(s): A41.9 - SEPSIS, UNSPECIFIED ORGANISM (3) Pneumonia Code(s): J18.9 - PNEUMONIA, UNSPECIFIED ORGANISM (4) Respiratory failure Code(s): J96.90 - RESPIRATORY FAILURE, UNSP, UNSP W HYPOXIA OR HYPERCAPNIA Qualifiers: Chronicity: acute Respiratory failure complication: hypoxia Qualified Code(s): J96.01 - Acute respiratory failure with hypoxia Assessment/Plan ASSESSMENT AND PLAN: Acute on Chronic Hypoxic Respiratory Failure Pneumonia Sepsis Mental Retardation Seizure Disorder h/o Asthma - Antibiotics per ID - Enteral feeds - Aspiration precautions - Inhaled bronchodilators - Taper FiO2 to keep SpO2 >90% - VTE prophylaxis - f/u chest x-rays DR VILLALTA
--- NOTE | 2017-05-02 15:04 | PN ---
Physical Exam: SUBJECTIVE: Patient seen and examined. He is laughing he appears improved OBJECTIVE: Vital Signs Period Temp Pulse Resp BP Sys/Linares Pulse Ox Last 24 Hr 97 F-98.4 F 69-88 18-22 97-106/55-64 95-95 PE Neuro: alert, awake, non verbal Pulm: clearing, still scattered rhonchi anteriorly CV: s1 s2 rrr Abd: peg tube soft nd Ext: contractures no le edema Laboratory Results - last 24 hr 05/02/17 05/02/17 07:05 07:05 WBC 5.5 RBC 3.58 L Hgb 11.5 L Hct 34.7 L MCV 96.7 H MCH 32.2 MCHC 33.3 RDW 16.7 H Plt Count 325 D MPV 8.4 Neutrophils % 34.5 L Lymphocytes % 56.0 H Monocytes % 8.7 Eosinophils % 0.3 D Basophils % 0.5 Sodium 146 H Potassium 3.6 Chloride 110 H Carbon Dioxide 27 Anion Gap 9 BUN 4 L D Creatinine 0.5 L D Random Glucose 96 Calcium 8.2 L Active Medications Generic Name Dose Route Start Last Admin Trade Name Freq PRN Reason Stop Dose Admin Acetaminophen 650 mg 04/29/17 19:00 Tylenol Oral Solution - GT Q6H PRN FEVER OR PAIN Acyclovir 400 mg 04/29/17 22:00 05/02/17 10:37 Zovirax Oral Suspension - GT 400 mg BID JORGE Administration Albuterol/Ipratropium 1 amp 04/29/17 22:00 05/02/17 14:00 Duoneb - NEB 1 amp Q4HWA JORGE Administration Amoxicillin/Clavulanate Potassium 250 mg 05/02/17 17:30 Augmentin 250 Mg/5 Ml Oral Suspension - PO BID@0800,1730 JORGE Baclofen 10 mg 04/29/17 22:00 05/02/17 10:32 Lioresal - GT 10 mg BID JORGE Administration Clobazam 5 mg 04/30/17 10:00 05/02/17 10:31 Onfi - PO 5 mg DAILY JORGE Administration Clonazepam 1.5 mg 04/29/17 22:00 05/02/17 14:08 Klonopin - GT 1.5 mg TID JORGE Administration Heparin Sodium (Porcine) 5,000 unit 04/29/17 22:00 05/02/17 10:30 Heparin - SQ 5,000 unit BID JORGE Administration Lamotrigine 200 mg 04/29/17 22:00 05/02/17 10:31 Lamictal - PO 200 mg BID JORGE Administration Phenobarbital 45 mg 04/29/17 22:00 05/02/17 10:33 Phenobarbital - GT 45 mg BID JORGE Administration Ranitidine HCl 75 mg 04/29/17 22:00 05/02/17 10:36 Zantac Oral Solution - GT 75 mg BID JORGE Administration Assessment: 22 year old male with PMH significant for profound mental retardation, herpes encephalopathy, seizure disorder, and asthma on home O2, who presented to the ED with acute respiratory distress, fever, cough. Plan: 1. Sepsis likely secondary to aspiration pneumonia - Stop Zosyn today - Started Augmentin 250mg BID 2. Acute on chronic respiratory failure - Continues to require face tent - Maintain O2 sats >92% - [facility] 3. Herpes encephalopathy - Continue acyclovir 4. Seizure disorder - Continue clonazepam, clobazam, phenobarbital, lamictal 5. Hypomagnesemia - Resolved 6. Functional quadriplegia due to profound retardation - Extremities shortened and contracted - Dependent for all ADLs 7. Nutrition: - Tube feeds/water 8. DVT prophylaxis: subq heparin Dispo: - [facility] pt Visit type - Emergency Visit Emergency Visit: Yes ED Registration Date: 04/25/17 Care time: The patient presented to the Emergency Department on the above date and was hospitalized for further evaluation of their emergent condition. - New Patient This patient is new to me today: No - Critical Care Critical Care patient: No
[2017-05-02] MEDS: AMOX TR/POTASSIUM CLAVULANATE 250 MG/5 ML BOTTLE PO SCH (17:48)
[2017-05-03] MEDS: clonazePAM 0.5 MG TABLET GT SCH ×3 (05:45→21:56)
[2017-05-03] MEDS: ALBUTEROL SO4 2.5/IPRATROPIUM 0.5 INH SOL 3 ML VIAL.NEB. NEB SCH ×5 (06:50→22:26)
[2017-05-03] MEDS: AMOX TR/POTASSIUM CLAVULANATE 250 MG/5 ML BOTTLE PO SCH ×2 (08:00→17:29)
[2017-05-03 08:48] LABS: ANION GAP 9 (8-16); CALCIUM 8.8 mg/dL (8.5-10.1); CO2 29 mmol/L (21-32)
[2017-05-03 08:51] LABS: CREATININE 0.5 mg/dL (0.7-1.3); GLUCOSE,RANDOM 106 mg/dL (74-106)
[2017-05-03] MEDS: PHENobarbital 30 MG TABLET GT SCH ×2 (10:07→21:55)
[2017-05-03] MEDS: cloBAZam 10 MG TABLET PO SCH (10:10)
[2017-05-03] MEDS: RANITIDINE HCL 150 MG/10 ML UNIT-DOSE GT SCH ×2 (10:10→21:56)
[2017-05-03] MEDS: ACYCLOVIR 200 MG/5 ML GT SCH ×2 (10:10→21:57)
[2017-05-03] MEDS: HEPARIN NA (PORCINE) 5,000 UNITS/ML 1ML VIAL SQ SCH ×2 (10:11→21:56)
[2017-05-03] MEDS: lamoTRIgine 100 MG TABLET (FP) PO SCH ×2 (10:11→21:56)
[2017-05-03] MEDS: BACLOFEN 10 MG TABLET (FP) GT SCH ×2 (10:11→21:56)
--- NOTE | 2017-05-03 12:22 | PN ---
Progress Note, Physician History of Present Illness: pulmonary no distress,on 70% face tent - Current Medication List Current Medications: Active Medications Acetaminophen (Tylenol Oral Solution -) 650 mg GT Q6H PRN PRN Reason: FEVER OR PAIN Acyclovir (Zovirax Oral Suspension -) 400 mg GT BID [facility] Last Admin: 05/03/17 10:10 Dose: 400 mg Albuterol/Ipratropium (Duoneb -) 1 amp NEB Q4HWA [facility] Last Admin: 05/03/17 06:50 Dose: 1 amp Amoxicillin/Clavulanate Potassium (Augmentin 250 Mg/5 Ml Oral Suspension -) 250 mg PO BID@0800,1730 [facility] Last Admin: 05/03/17 08:00 Dose: 250 mg Baclofen (Lioresal -) 10 mg GT BID [facility] Last Admin: 05/03/17 10:11 Dose: 10 mg Clobazam (Onfi -) 5 mg PO DAILY [facility] Last Admin: 05/03/17 10:10 Dose: 5 mg Clonazepam (Klonopin -) 1.5 mg GT TID [facility] Last Admin: 05/03/17 05:45 Dose: 1.5 mg Heparin Sodium (Porcine) (Heparin -) 5,000 unit SQ BID [facility] Last Admin: 05/03/17 10:11 Dose: 5,000 unit Lamotrigine (Lamictal -) 200 mg PO BID [facility] Last Admin: 05/03/17 10:11 Dose: 200 mg Phenobarbital (Phenobarbital -) 45 mg GT BID [facility] Last Admin: 05/03/17 10:07 Dose: 45 mg Ranitidine HCl (Zantac Oral Solution -) 75 mg GT BID [facility] Last Admin: 05/03/17 10:10 Dose: 75 mg - Objective Vital Signs: Vital Signs Temperature 98.1 F 05/03/17 09:22 Pulse Rate 74 05/03/17 09:22 Respiratory Rate 20 05/03/17 09:22 Blood Pressure 94/47 05/03/17 09:22 O2 Sat by Pulse Oximetry (%) 98 05/03/17 02:54 Constitutional: Yes: Calm, Thin Eyes: Yes: WNL HENT: Yes: WNL Neck: Yes: WNL Cardiovascular: Yes: Regular Rate and Rhythm, S1, S2 Respiratory: Yes: Rhonchi (few rhonchi) Gastrointestinal: Yes: Normal Bowel Sounds, Soft Extremities: Yes: WNL, Other (contracted) Edema: No Labs: CBC, BMP 05/03/17 08:05 INR, PTT INR 1.15 (0.82-1.09) H 04/25/17 15:00 Problem List - Problems (1) HCAP (healthcare-associated pneumonia) Code(s): J18.9 - PNEUMONIA, UNSPECIFIED ORGANISM (2) Sepsis Code(s): A41.9 - SEPSIS, UNSPECIFIED ORGANISM (3) Pneumonia Code(s): J18.9 - PNEUMONIA, UNSPECIFIED ORGANISM (4) Respiratory failure Code(s): J96.90 - RESPIRATORY FAILURE, UNSP, UNSP W HYPOXIA OR HYPERCAPNIA Qualifiers: Chronicity: acute Respiratory failure complication: hypoxia Qualified Code(s): J96.01 - Acute respiratory failure with hypoxia Assessment/Plan ASSESSMENT AND PLAN: Acute on Chronic Hypoxic Respiratory Failure Pneumonia Sepsis Mental Retardation Seizure Disorder h/o Asthma - Antibiotics per ID - Enteral feeds - Aspiration precautions - Inhaled bronchodilators - Taper FiO2 to keep SpO2 >90% - VTE prophylaxis - f/u chest x-rays DR VILLALTA
--- NOTE | 2017-05-03 14:43 | PN ---
Physical Exam: SUBJECTIVE: Patient seen and examined. No issues, no fever OBJECTIVE: Vital Signs Period Temp Pulse Resp BP Sys/Linares Pulse Ox Last 24 Hr 98.1 F-98.9 F 60-82 20-20 94-105/47-60 94-98 PE Neuro: alert, awake, non verbal Pulm: clearing, still scattered rhonchi anteriorly CV: s1 s2 rrr Abd: peg tube soft nd Ext: contractures no le edema Laboratory Results - last 24 hr 05/03/17 08:05 Sodium 144 Potassium 3.9 Chloride 106 Carbon Dioxide 29 Anion Gap 9 BUN 6 L D Creatinine 0.5 L Random Glucose 106 Calcium 8.8 Active Medications Generic Name Dose Route Start Last Admin Trade Name Freq PRN Reason Stop Dose Admin Acetaminophen 650 mg 04/29/17 19:00 Tylenol Oral Solution - GT Q6H PRN FEVER OR PAIN Acyclovir 400 mg 04/29/17 22:00 05/03/17 10:10 Zovirax Oral Suspension - GT 400 mg BID JORGE Administration Albuterol/Ipratropium 1 amp 04/29/17 22:00 05/03/17 10:30 Duoneb - NEB 1 amp Q4HWA JORGE Administration Amoxicillin/Clavulanate Potassium 250 mg 05/02/17 17:30 05/03/17 08:00 Augmentin 250 Mg/5 Ml Oral Suspension - PO 250 mg BID@0800,1730 JORGE Administration Baclofen 10 mg 04/29/17 22:00 05/03/17 10:11 Lioresal - GT 10 mg BID JORGE Administration Clobazam 5 mg 04/30/17 10:00 05/03/17 10:10 Onfi - PO 5 mg DAILY JORGE Administration Clonazepam 1.5 mg 04/29/17 22:00 05/03/17 13:14 Klonopin - GT 1.5 mg TID JORGE Administration Heparin Sodium (Porcine) 5,000 unit 04/29/17 22:00 05/03/17 10:11 Heparin - SQ 5,000 unit BID JORGE Administration Lamotrigine 200 mg 04/29/17 22:00 05/03/17 10:11 Lamictal - PO 200 mg BID JORGE Administration Phenobarbital 45 mg 04/29/17 22:00 05/03/17 10:07 Phenobarbital - GT 45 mg BID JORGE Administration Ranitidine HCl 75 mg 04/29/17 22:00 05/03/17 10:10 Zantac Oral Solution - GT 75 mg BID JORGE Administration Assessment: 22 year old male with PMH significant for profound mental retardation, herpes encephalopathy, seizure disorder, and asthma on home O2, who presented to the ED with acute respiratory distress, fever, cough. Plan: 1. Sepsis likely secondary to aspiration pneumonia - Continue Augmentin 250mg BID - Stop Zosyn 05/02 2. Acute on chronic respiratory failure - Continues to require face tent, continue weaning trials - Maintain O2 sats >92% 3. Herpes encephalopathy - Continue acyclovir 4. Seizure disorder - Continue clonazepam, clobazam, phenobarbital, lamictal 5. Hypomagnesemia - Resolved 6. Functional quadriplegia due to profound retardation - Extremities shortened and contracted - Dependent for all ADLs 7. Nutrition: - Tube feeds/water 8. DVT prophylaxis: subq heparin Dispo: - [facility] pt, Visit type - Emergency Visit Emergency Visit: Yes ED Registration Date: 04/25/17 Care time: The patient presented to the Emergency Department on the above date and was hospitalized for further evaluation of their emergent condition. - New Patient This patient is new to me today: No - Critical Care Critical Care patient: No
[2017-05-03] MEDS ORDERED: PT OWN MED DRAWER 7, Y5N ONE ×3 (16:50→21:53)
[2017-05-04] MEDS: clonazePAM 0.5 MG TABLET GT SCH ×3 (05:34→21:44)
[2017-05-04] MEDS: ALBUTEROL SO4 2.5/IPRATROPIUM 0.5 INH SOL 3 ML VIAL.NEB. NEB SCH ×4 (07:24→17:10)
[2017-05-04] MEDS ORDERED: PT OWN MED DRAWER 7, Y5N ONE (08:22)
[2017-05-04] MEDS: AMOX TR/POTASSIUM CLAVULANATE 250 MG/5 ML BOTTLE PO SCH ×2 (08:56→17:03)
[2017-05-04] MEDS: HEPARIN NA (PORCINE) 5,000 UNITS/ML 1ML VIAL SQ SCH ×2 (10:29→21:44)
[2017-05-04] MEDS: lamoTRIgine 100 MG TABLET (FP) PO SCH ×2 (10:29→21:44)
[2017-05-04] MEDS: cloBAZam 10 MG TABLET PO SCH (10:30)
[2017-05-04] MEDS: BACLOFEN 10 MG TABLET (FP) GT SCH ×2 (10:30→21:45)
[2017-05-04] MEDS: PHENobarbital 30 MG TABLET GT SCH ×2 (10:31→21:45)
[2017-05-04] MEDS: RANITIDINE HCL 150 MG/10 ML UNIT-DOSE GT SCH ×2 (10:32→21:45)
[2017-05-04] MEDS: ACYCLOVIR 200 MG/5 ML GT SCH ×2 (10:34→21:46)
--- NOTE | 2017-05-04 10:44 | PN ---
Physical Exam: SUBJECTIVE: Patient seen and examined. He is awake, he is smiling and laughing OBJECTIVE: Vital Signs Period Temp Pulse Resp BP Sys/Linares Pulse Ox Last 24 Hr 97.8 F-98.6 F 52-70 20-20 105-112/48-60 95-95 PE Neuro: alert, awake, non verbal Pulm: clear with crackles, no wheezing, + face tent CV: s1 s2 rrr no mrg Abd: peg tube soft nd Ext: contractures no le edema Active Medications Generic Name Dose Route Start Last Admin Trade Name Freq PRN Reason Stop Dose Admin Acetaminophen 650 mg 04/29/17 19:00 Tylenol Oral Solution - GT Q6H PRN FEVER OR PAIN Acyclovir 400 mg 04/29/17 22:00 05/04/17 10:34 Zovirax Oral Suspension - GT 400 mg BID JORGE Administration Albuterol/Ipratropium 1 amp 04/29/17 22:00 05/04/17 07:24 Duoneb - NEB 1 amp Q4HWA JORGE Administration Amoxicillin/Clavulanate Potassium 250 mg 05/02/17 17:30 05/04/17 08:56 Augmentin 250 Mg/5 Ml Oral Suspension - PO 250 mg BID@0800,1730 JORGE Administration Baclofen 10 mg 04/29/17 22:00 05/04/17 10:30 Lioresal - GT 10 mg BID JORGE Administration Clobazam 5 mg 04/30/17 10:00 05/04/17 10:30 Onfi - PO 5 mg DAILY JORGE Administration Clonazepam 1.5 mg 04/29/17 22:00 05/04/17 05:34 Klonopin - GT 1.5 mg TID JORGE Administration Heparin Sodium (Porcine) 5,000 unit 04/29/17 22:00 05/04/17 10:29 Heparin - SQ 5,000 unit BID JORGE Administration Lamotrigine 200 mg 04/29/17 22:00 05/04/17 10:29 Lamictal - PO 200 mg BID JORGE Administration Phenobarbital 45 mg 04/29/17 22:00 05/04/17 10:31 Phenobarbital - GT 45 mg BID JORGE Administration Ranitidine HCl 75 mg 04/29/17 22:00 05/04/17 10:32 Zantac Oral Solution - GT 75 mg BID JORGE Administration Assessment: 22 year old male with PMH significant for profound mental retardation, herpes encephalopathy, seizure disorder, and asthma on home O2, who presented to the ED with acute respiratory distress, fever, cough. Plan: 1. Sepsis likely secondary to aspiration pneumonia - Continue Augmentin 250mg BID (day 3) - Stopped Zosyn 05/02 2. Acute on chronic respiratory failure - Continues to require face tent, continue weaning trials, unclear if [place] accepts with o2 requirements - Maintain O2 sats >92% 3. Herpes encephalopathy - Continue acyclovir 4. Seizure disorder - Continue clonazepam, clobazam, phenobarbital, lamictal 5. Hypomagnesemia - Resolved 6. Functional quadriplegia due to profound retardation - Extremities shortened and contracted - Dependent for all ADLs 7. Nutrition: - Tube feeds/water 8. DVT prophylaxis: subq heparin Dispo: - [facility] home pt, can return when o2 requirements clarified Visit type - Emergency Visit Emergency Visit: Yes ED Registration Date: 04/25/17 Care time: The patient presented to the Emergency Department on the above date and was hospitalized for further evaluation of their emergent condition. - New Patient This patient is new to me today: No - Critical Care Critical Care patient: No - Discharge Referral Referred to [facility] Med P.C.: No
--- NOTE | 2017-05-04 12:27 | PN ---
Progress Note, Physician History of Present Illness: pulmonary awake,nad,on 70% face tent - Current Medication List Current Medications: Active Medications Acetaminophen (Tylenol Oral Solution -) 650 mg GT Q6H PRN PRN Reason: FEVER OR PAIN Acyclovir (Zovirax Oral Suspension -) 400 mg GT BID [facility] Last Admin: 05/04/17 10:34 Dose: 400 mg Albuterol/Ipratropium (Duoneb -) 1 amp NEB Q4HWA [facility] Last Admin: 05/04/17 07:24 Dose: 1 amp Amoxicillin/Clavulanate Potassium (Augmentin 250 Mg/5 Ml Oral Suspension -) 250 mg PO BID@0800,1730 [facility] Last Admin: 05/04/17 08:56 Dose: 250 mg Baclofen (Lioresal -) 10 mg GT BID [facility] Last Admin: 05/04/17 10:30 Dose: 10 mg Clobazam (Onfi -) 5 mg PO DAILY [facility] Last Admin: 05/04/17 10:30 Dose: 5 mg Clonazepam (Klonopin -) 1.5 mg GT TID [facility] Last Admin: 05/04/17 05:34 Dose: 1.5 mg Heparin Sodium (Porcine) (Heparin -) 5,000 unit SQ BID [facility] Last Admin: 05/04/17 10:29 Dose: 5,000 unit Lamotrigine (Lamictal -) 200 mg PO BID [facility] Last Admin: 05/04/17 10:29 Dose: 200 mg Phenobarbital (Phenobarbital -) 45 mg GT BID [facility] Last Admin: 05/04/17 10:31 Dose: 45 mg Ranitidine HCl (Zantac Oral Solution -) 75 mg GT BID [facility] Last Admin: 05/04/17 10:32 Dose: 75 mg - Objective Vital Signs: Vital Signs Temperature 97.8 F 05/04/17 05:46 Pulse Rate 64 05/04/17 05:46 Respiratory Rate 20 05/04/17 05:46 Blood Pressure 106/60 05/04/17 05:46 O2 Sat by Pulse Oximetry (%) 95 05/03/17 22:37 Constitutional: Yes: Well Nourished, Calm Eyes: Yes: WNL HENT: Yes: WNL Neck: Yes: WNL Cardiovascular: Yes: Regular Rate and Rhythm, S1, S2 Respiratory: Yes: Diminished Gastrointestinal: Yes: Normal Bowel Sounds, Soft Extremities: Yes: Other (contracted) Edema: No Problem List - Problems (1) HCAP (healthcare-associated pneumonia) Code(s): J18.9 - PNEUMONIA, UNSPECIFIED ORGANISM (2) Sepsis Code(s): A41.9 - SEPSIS, UNSPECIFIED ORGANISM (3) Pneumonia Code(s): J18.9 - PNEUMONIA, UNSPECIFIED ORGANISM (4) Respiratory failure Code(s): J96.90 - RESPIRATORY FAILURE, UNSP, UNSP W HYPOXIA OR HYPERCAPNIA Qualifiers: Chronicity: acute Respiratory failure complication: hypoxia Qualified Code(s): J96.01 - Acute respiratory failure with hypoxia Assessment/Plan ASSESSMENT AND PLAN: Acute on Chronic Hypoxic Respiratory Failure improving Pneumonia Sepsis Mental Retardation Seizure Disorder h/o Asthma - Antibiotics - Enteral feeds - Aspiration precautions - Inhaled bronchodilators - FiO2 to keep SpO2 >90% - VTE prophylaxis - f/u chest x-rays DR VILLALTA
[2017-05-05] MEDS: clonazePAM 0.5 MG TABLET GT SCH (06:07)
[2017-05-05] MEDS: AMOX TR/POTASSIUM CLAVULANATE 250 MG/5 ML BOTTLE PO SCH (10:50)
[2017-05-05] MEDS: HEPARIN NA (PORCINE) 5,000 UNITS/ML 1ML VIAL SQ SCH (10:50)
[2017-05-05] MEDS: PHENobarbital 30 MG TABLET GT SCH (10:51)
[2017-05-05] MEDS: cloBAZam 10 MG TABLET PO SCH (10:51)
[2017-05-05] MEDS: BACLOFEN 10 MG TABLET (FP) GT SCH (10:51)
[2017-05-05] MEDS: lamoTRIgine 100 MG TABLET (FP) PO SCH (10:51)
[2017-05-05] MEDS: RANITIDINE HCL 150 MG/10 ML UNIT-DOSE GT SCH (10:52)
[2017-05-05] MEDS: ACYCLOVIR 200 MG/5 ML GT SCH (10:52)
--- NOTE | 2017-05-05 11:42 | DS ---
Physical Exam: SUBJECTIVE: Patient seen and examined. Signout given to Dr. Contreras who is covering [place]. OBJECTIVE: Vital Signs Period Temp Pulse Resp BP Sys/Linares Pulse Ox Last 24 Hr 97.9 F-98.5 F 62-75 18-24 107-116/45-74 95 PHYSICAL EXAM Neuro: alert, awake, non verbal Pulm: clear with crackles, no wheezing, + NC CV: s1 s2 rrr no mrg Abd: peg tube soft nd Ext: contractures no le edema LABS HOSPITAL COURSE: Date of Admission:04/25/17 Date of Discharge: 05/05/17 Minutes to complete discharge: 45 Discharge Summary Reason For Visit: SEPSIS, [facility] PNEUMONIA Current Active Problems Acute and chronic respiratory failure with hypoxia (Acute) HCAP (healthcare-associated pneumonia) (Acute) Sepsis (Acute) Hospital Course: This is a 22 year old male with PMHx of profound mental retardation, herpes encephalopathy, seizure disorder, asthma (on home O2 via [place]), who presented to the ED with acute respiratory distress, fever, cough. The patient's hospice care transitions coordinator and notes from RN at [facility] the patient was at baseline healthwise until the morning of presentation until about 10am when the patient was found to be tachypneic with fever of 99.5 (baseline temp is 95-96) during tube feeds. He was also found to have thick yellowish sputum. Sepsis 2/2 aspiration pna leukocytosis resolved on 04/30/17 Zosyn (04/25- 05/02) switched to GT Augmentin on 05/02 Augmentin to continue for total of 7 days Zithromax x 3days (04/25-04/28) Microbiology 04/28/17 10:50 Sputum - Expectorated Gram Stain - Final 04/28/17 10:50 Sputum - Expectorated Sputum Culture - Final NORMAL RESPIRATORY CHENCHO 04/25/17 13:50 Blood - Peripheral Venous Blood Culture - Final NO GROWTH AFTER 5 DAYS INCUBATION 04/25/17 13:50 Blood - Peripheral Venous Blood Culture - Final NO GROWTH AFTER 5 DAYS INCUBATION 04/27/17 06:00 Urine For Antigen Detection Legionella Antigen - Final 04/27/17 06:00 Urine For Antigen Detection Streptococcus pneumoniae Antigen (M - Final 04/25/17 15:15 Urine - Urine - Catheterized Urine Culture - Final NO GROWTH OBTAINED 04/25/17 15:40 Nasopharyngeal Swab Respiratory Syncytial Virus Ag - Final 04/25/17 15:40 Nasopharyngeal Swab Influenza Types A,B Antigen (VANCE) - Final 04/25/17 15:40 Nasopharyngeal Swab - Final Acute on chronic respiratory failure O2 requirements titrated from 70% face tent to 4LNC where patient remains stable treated for aspiration pneumonia Herpes Encephalopathy continue acyclovir Seizure disorder continue clonazepam, clobazam, phenobarbital, lamictal Hypomagnesemia given 2g Mag sulfate with resolution 04/29 Nutrition continue Promote tube feeds with free water boluses Condition: Stable - Instructions Referrals: Jose Luis Valentino Jr [Primary Care Provider] - [facility]position: [facility] - Home Medications Comprehensive Discharge Medication List: Ambulatory Orders Acyclovir 400 mg GT BID 04/25/17 Baclofen 10 mg GT BID 04/25/17 Benzoyl Peroxide 5% Gel - 1 applic TP BID 04/25/17 Budesonide/Formeterol Fumarate [SYMBICORT 160/4.5mcg -] 1 inh PO BID 04/25/17 Clobazam [Onfi -] 5 mg GT DAILY 04/25/17 Clonazepam 1.5 mg GT TID 04/25/17 Diazepam Rectal Gel [Diastat Rectal Gel -] 10 mg RC PRN PRN 04/25/17 Fluticasone Propionate [Flovent Diskus] 50 mcg IH DAILY 04/25/17 Fructooligosaccharides/Polydex [Fiber-Stat 15 gm/30 ml Liquid] 15 gm GT DAILY Ipratropium/Albuterol Sulfate [Iprat-Albut 0.5-3(2.5) mg/3 ml] 3 ml IH Q6H 04/25 Lactobacillus Acidophilus [Acidophilus] 1 each GT HS 04/25/17 Lamotrigine 200 mg GT BID 04/25/17 Magnesium Hydrox 2400MG/30Ml [Milk of Magnesia -] 20 ml GT BID 04/25/17 Multivitamin [Poly-Vitamin] 1 each GT DAILY 04/25/17 Phenobarbital 48.6 mg GT BID 04/25/17 Ranitidine [Zantac -] 75 mg GT BID 04/25/17 Amox-Tr/K Cl [Augmentin Suspension -] 250 mg PO BID@0800,1730 #40 ml 12/26/17 This patient is new to me today: Yes Date on this admission: 05/06/17 Emergency Visit: Yes ED Registration Date: 04/25/17 Care time: The patient presented to the Emergency Department on the above date and was hospitalized for further evaluation of their emergent condition. Critical Care patient: No - Discharge Referral Referred to [facility] Med P.C.: No
--- NOTE | 2017-05-05 11:59 | PN ---
Progress Note (short form) - Note Progress Note: PULMONARY NOT IN RESP DISTRESS APPEARS TO BE COMFORTABLE/NO COUGH NOTESD CHART REVIEWED VSS/AFEBRILE PALE DIMINISHED BREATH SOUNDS ON LEFT S1S2 PEG CONTRACTED LOWER EXT LABS/MEDS/NOTES/IMAGES REVIEWED CXR 05/02 rotated Acute on Chronic Hypoxic Respiratory Failure improving Pneumonia Sepsis Mental Retardation Seizure Disorder h/o Asthma - No objection to transfer back to facility - repeat cxr prior to discharge - Enteral feeds - Aspiration precautions - Inhaled bronchodilators - FiO2 to keep SpO2 >90% - VTE prophylaxis
[2017-05-05 12:20] VITALS: BP 102/56; PULSE 111; TEMP 98.8
== END 2017-05-05 15:09 | disposition home or self-care (01) | DRG 720 ==
LOC: JER 12:47 → JERBED 16:35 → JICU 19:40 → J6S 04-29 18:52
PROVIDERS: ADMIT Internal Medicine; ATTEND Nurse Practitioner Family
PROC: 3E0G36Z Introduction of Nutritional Substance into Upper GI, Percutaneous Approach (ICD-10-PCS; principal; 2017-04-25)
DX: A41.9 Sepsis, unspecified organism (principal); J69.0 Pneumonitis due to inhalation of food and vomit; F73 Profound intellectual disabilities; G93.49 Other encephalopathy; J96.21 Acute and chronic respiratory failure with hypoxia; G40.909 Epilepsy, unspecified, not intractable, without status epilepticus; J45.909 Unspecified asthma, uncomplicated; E83.42 Hypomagnesemia; R53.2 Functional quadriplegia; D72.829 Elevated white blood cell count, unspecified; E87.2 Acidosis
CPT/HCPCS: 36415; 36600; 71010-TC; 76705-TC; 80048; 80053; 81003; 82550; 82553; 82803; 83605; 83735; 84100; 84484; 85025; 85027; 85610; 85730; 86850; 86900; 86901; 87040; 87070; 87086; 87205; 87420; 87804; 87899; 93005; 93010; 94640; 94660; 99285-25; J0475; J1644

== ENCOUNTER 2018-02-14 18:05 | Inpatient (IN) | payer OTHER ==
--- NOTE | 2018-02-14 18:15 | PDOC ---
History of Present Illness - General History Source: Patient Exam Limitations: No Limitations - History of Present Illness Initial Comments: 02/14/18 18:28 The patient is a 22 year old male with a significant past medical history of severe MR, cerebral palsy, herpetic meningoencephalitis, and asthma who presents to the ER brought in by EMS with saturation in the high 80s, hypotension to the 70s/40s, and seizure-like activity. En route to the ED, patient was given fluids. As per aid at beside, patient is normally active and laughing, but has not been his usual self since his roommate 2 weeks ago. Patients blood pressure in the ER is 120/57. Patient is no longer shaking in the ER. Allergies: NKA Past surgical history: None reported. Social history: None reported. <Alina Doyle - Last Filed: 02/14/18 19:35> <Jaylni Montesinos - Last Filed: 02/15/18 09:22> - General Chief Complaint: Altered Mental Status Stated Complaint: ALTERED MENTAL STATUS Time Seen by Provider: 02/14/18 18:12 Past History <Alina Doyle - Last Filed: 02/14/18 19:35> - Past Medical History Anemia: No Asthma: Yes Cancer: No Cardiac Disorders: No CVA: No COPD: No CHF: No Dementia: No Diabetes: No GI Disorders: Yes (DYSPHAGIA. CONSTIPATION. GERD.) Disorders: No HTN: No Hypercholesterolemia: No Liver Disease: No Seizures: Yes (EPILEPSY) Thyroid Disease: No - Surgical History Abdominal Surgery: Yes (GT PLACEMENT) Appendectomy: No Cardiac Surgery: No Cholecystectomy: No Lung Surgery: No Neurologic Surgery: No Orthopedic Surgery: No - Suicide/Smoking/Psychosocial Hx Smoking Status: No Smoking History: Never smoked Have you smoked in the past 12 months: No Number of Cigarettes Smoked Daily: 0 Hx Alcohol Use: No Drug/Substance Use Hx: No Substance Use Type: None <Jaylin Montesinos - Last Filed: 02/15/18 09:22> - Past Medical History Allergies/Adverse Reactions: Allergies Allergy/AdvReac Type Severity Reaction Status Date / Time No Known Allergies Allergy Verified 02/14/18 18:16 Home Medications: Ambulatory Orders Acyclovir 400 mg GT BID 04/25/17 Baclofen 10 mg GT BID 04/25/17 Benzoyl Peroxide 5% Gel - 1 applic TP BID 04/25/17 Budesonide/Formeterol Fumarate [SYMBICORT 160/4.5mcg -] 1 inh PO BID 04/25/17 Clobazam [Onfi -] 5 mg GT DAILY 04/25/17 Clonazepam 1.5 mg GT TID 04/25/17 Diazepam Rectal Gel [Diastat Rectal Gel -] 10 mg RC PRN PRN 04/25/17 Fluticasone Propionate [Flovent Diskus] 50 mcg IH DAILY 04/25/17 Fructooligosaccharides/Polydex [Fiber-Stat 15 gm/30 ml Liquid] 15 gm GT DAILY Ipratropium/Albuterol Sulfate [Iprat-Albut 0.5-3(2.5) mg/3 ml] 3 ml IH Q6H 04/25 Lactobacillus Acidophilus [Acidophilus] 1 each GT HS 04/25/17 Lamotrigine 200 mg GT BID 04/25/17 Magnesium Hydrox 2400MG/30Ml [Milk of Magnesia -] 20 ml GT BID 04/25/17 Multivitamin [Poly-Vitamin] 1 each GT DAILY 04/25/17 Phenobarbital 48.6 mg GT BID 04/25/17 Ranitidine [Zantac -] 75 mg GT BID 04/25/17 Review of Systems - Review of Systems Able to Perform ROS?: No (2/2 clinical condition) <Alina Doyle - Last Filed: 02/14/18 19:35> *Physical Exam - Vital Signs Last Vital Signs Temp Pulse Resp BP Pulse Ox 84 24 H 120/57 L 100 02/14/18 18:14 02/14/18 18:14 02/14/18 18:14 02/14/18 18:14 - Physical Exam Comments: 02/14/18 18:28 Constitutional: (+) Awake. In Mild/Moderate respiratory distress. Head: Normocephalic. Atraumatic Eyes: PERRL. EOMI. Conjunctivae are not pale. ENT: (+) Mucous membranes are dry and intact. Posterior pharynx without exudates or erythema. Uvula midline. (+)Tongue bite, no active bleeding Neck: Supple. Full ROM. No lymphadenopathy. Cardiovascular: Regular rate. Regular rhythm. S1, S2 regular. Distal pulses are 2+ and symmetric. Pulmonary/Chest: No evidence of respiratory distress. Clear to auscultation bilaterally No wheezing, rales or rhonchi. Abdominal: (+) PEG tube in place. Soft and non-distended. There is no tenderness. No rebound, guarding or rigidity. No organomegaly. No palpable masses. Good bowel sounds. Back: No CVA tenderness. Musculoskeletal: (+) bilateral upper and lower extremities are contracted. No edema. No cyanosis. No clubbing. No calf tenderness. Radial/pedal pulses are intact and 2+ bilaterally Skin: Skin is warm and dry. No petechiae. No purpura. Neurological: (+) Upward gaze. Cranial nerves II-XII are grossly intact. Strength is grossly symmetric. No sensory deficits. <Alina Doyle - Last Filed: 02/14/18 19:35> ED Treatment Course - LABORATORY CBC & Chemistry Diagram: 02/14/18 18:45 02/14/18 18:45 <Alina Doyle - Last Filed: 02/14/18 19:35> - LABORATORY CBC & Chemistry Diagram: 02/15/18 08:35 02/14/18 18:45 <Jaylin Montesinos - Last Filed: 02/15/18 09:22> Medical Decision Making - Medical Decision Making 02/14/18 19:22 a/p: 22yo male with hx of CP with poss seizure activity -tongue biting -no longer shaking -pt with upward gaze, but no shaking at this time -pt with dry mm -contracted ue and le -peg in place -recent roommate at [facility] -pt baseline ms is giggling and interactive -pt appears dehydrated -hypoxic on RA -will send labs, cultures, ekg, cxr, head ct -straight cath for ua/ucx -pt will most likely need admission 02/14/18 19:26 pt will be signed out to the oncoming ED physician pending labs, imaging, and most likely admission <Jaylin Montesinos - Last Filed: 02/15/18 09:22> *DC/Admit/Observation/Transfer - Attestations Scribe Attestion: 02/14/18 18:35 Documentation prepared by Alina Doyle, acting as medical scheduler for Jaylin Montesinos DO. <Alina Doyle - Last Filed: 02/14/18 19:35> - Attestations Physician Attestion: 02/14/18 19:26 I, Dr. Jaylin Montesinos DO, attest that this document has been prepared under my direction and personally reviewed by me in its entirety. I further attest, that it accurately reflects all work, treatment, procedures and medical decision -making performed by me. <Jaylin Montesinos - Last Filed: 02/15/18 09:22> Diagnosis at time of Disposition: Facial twitching Altered mental status Qualifiers: Altered mental status type: unspecified Qualified Code(s): R41.82 - Altered mental status, unspecified - Discharge Dispostion Condition at time of disposition: Guarded
[2018-02-14] MEDS ORDERED: SODIUM CHLORIDE 0.9% 1000 ML INFUS.BAG IV ONE (18:23)
[2018-02-14] MEDS ORDERED: ALBUTEROL SO4 2.5/IPRATROPIUM 0.5 INH SOL 3 ML VIAL.NEB. NEB ONE ×2 (18:23→19:01)
[2018-02-14 18:58] LABS: VENOUS PC02 50.8 mmHg (38-52); VENOUS PH 7.37 (7.32-7.42)
[2018-02-14 19:00] LABS: BASO % 0.2 % (0-2.0); EOS % 3.2 % (0-4.5); HEMATOCRIT 37.9 % (35.4-49); HEMOGLOBIN 12.8 GM/dL (11.7-16.9); LYMPH % 27.4 % (8-40); MCH 33.7 pg (25.7-33.7); MCHC 33.8 g/dl (32.0-35.9); MEAN CELL VOLUME 99.7 fl (80-96); MEAN PLT VOLUME 11.3 fl (7.5-11.1); MONO % 6.8 % (3.8-10.2); NEUT % 62.4 % (42.8-82.8); PLATELET COUNT 53 K/MM3 (134-434); RBC 3.81 M/mm3 (4.00-5.60); RDW 15.7 % (11.9-15.9); WHITE BLOOD COUNT 7.2 K/mm3 (4.0-10.0)
[2018-02-14 19:34] LABS: INR 1.12 (0.83-1.09); PROTHROMBIN TIME (PATIENT) 13.2 SEC (9.7-13.0)
--- NOTE | 2018-02-14 19:36 | PDOC ---
*Physical Exam - Vital Signs Last Vital Signs Temp Pulse Resp BP Pulse Ox 84 24 H 120/57 L 100 02/14/18 18:14 02/14/18 18:14 02/14/18 18:14 02/14/18 18:14 Heart Score/ECG Review - ECG Impressions Comment:: 02/15/18 05:40 Twelve-lead EKG was performed and reviewed by me. There is normal sinus rhythm with a normal rate rate of 67 q waves in inferior leads ED Treatment Course - LABORATORY CBC & Chemistry Diagram: 02/14/18 18:45 02/14/18 18:45 - ADDITIONAL ORDERS Additional order review: Laboratory Results 02/14/18 18:45 VBG pH 7.37 POC VBG pCO2 50.8 POC VBG pO2 132.0 H D Mixed VBG HCO3 28.9 H 02/14/18 18:45 RBC 3.81 L MCV 99.7 H MCHC 33.8 RDW 15.7 MPV 11.3 H D Neutrophils % 62.4 Lymphocytes % 27.4 Monocytes % 6.8 Eosinophils % 3.2 Basophils % 0.2 - Medications Given in the ED: ED Medications Discontinued Medications Generic Name Dose Route Start Last Admin Trade Name Freq PRN Reason Stop Dose Admin Albuterol/Ipratropium 1 amp 02/14/18 18:23 02/14/18 18:56 Duoneb - NEB 02/14/18 18:24 1 amp ONCE ONE Administration Sodium Chloride 1,000 ml 02/14/18 18:23 02/14/18 18:56 Normal Saline - IV 02/14/18 18:24 1,000 ml ONCE ONE Administration Medical Decision Making - Medical Decision Making 02/14/18 19:34 pt signed out to me from Dr. Montesinos 22y M hx of CP presents from [facility] for [facility] - pt at baseline makes eye contact when you say his name and giggles, but for the past 2 weeks has not been himself, and there has been witnessed 'seizure' like activty with twitching /fasicular movement. pts vitals ntoed to have o2 level of high 80s-90s here inthe ED history otherwise limited pt is awaiting labs, xray, ct head 02/14/18 23:19 labs reviewed, unremarkable case dw dr. dumont agreed with admission under dr. ifudus service Case discussed in detail with admitting physician including history, physical exam and ancillary studies. Admitting physician has assumed care for the patient, will follow all pending diagnostics and will complete the evaluation and treatment. *DC/Admit/Observation/Transfer Diagnosis at time of Disposition: Facial twitching Altered mental status Qualifiers: Altered mental status type: unspecified Qualified Code(s): R41.82 - Altered mental status, unspecified - Discharge Dispostion Condition at time of disposition: Guarded Decision to Admit order: Yes - Referrals - Patient Instructions - Post Discharge Activity
[2018-02-14 19:37] LABS: ACTIVATED PTT 38.4 SECONDS (25.2-36.5)
[2018-02-14 20:11] LABS: ALK PHOS 325 U/L (45-117); ANION GAP 7 MMOL/L (8-16); BILIRUBIN,TOTAL 0.2 mg/dL (0.2-1); BLOOD UREA NITROGEN 18 mg/dL (7-18); CALCIUM 8.7 mg/dL (8.5-10.1); CHLORIDE 106 mmol/L (98-107); CO2 27 mmol/L (21-32); CREATININE 0.6 mg/dL (0.55-1.3); GLUCOSE,RANDOM 69 mg/dL (74-106); MAGNESIUM 2.3 mg/dL (1.8-2.4); POTASSIUM 4.4 mmol/L (3.5-5.1); SGOT/AST 95 U/L (15-37); SGPT/ALT 143 U/L (13-61); SODIUM 140 mmol/L (136-145); TOT PROT 7.6 g/dl (6.4-8.2)
[2018-02-14 21:52] LABS: URINE APPEARANCE CLEAR; URINE BILIRUBIN NEGATIVE (<2.0 mg/dL); URINE COLOR STRAW; URINE GLUCOSE (UA) NEGATIVE (NEGATIVE); URINE KETONE NEGATIVE (NEGATIVE); URINE LEUK ESTERASE NEGATIVE (NEGATIVE); URINE NITRITE NEGATIVE (NEGATIVE); URINE PROTEIN NEGATIVE (NEGATIVE); URINE UROBILINOGEN NEGATIVE mg/dL (0.2-1.0)
--- NOTE | 2018-02-14 23:00 | PN ---
Teaching Attending Note Name of Resident: Oriana Rasmussen ATTENDING PHYSICIAN STATEMENT I saw and evaluated the patient. I reviewed the resident's note and discussed the case with the resident. I agree with the resident's findings and plan as documented. SUBJECTIVE: Patient is a 22 year old man resident of [place], with a PMH of severe MR, cerebral palsy, herpetic meningoencephalitis, and asthma who presents to the ER via EMS with O2 saturation in the high 80s, hypotension to the 70s/40s, and seizure-like activity. En route to the ER, patient was given IV fluids. As per aid at beside, patient is normally active and laughing, but has not been his usual self since his roommate 2 weeks ago. Patients blood pressure in the ER is 120/57. Patient is no longer shaking in the ER. OBJECTIVE: Alert Vital Signs Period Temp Pulse Resp BP Sys/Linares Pulse Ox Last 24 Hr 76-84 20-24 120-129/40-57 100-100 HEENT: No Jaundice, eye redness or discharge, PERRLA, EOMI. Normocephalic, atraumatic. External ears are normal and hearing is grossly intact. No nasal discharge. Neck: Supple, nontender. No palpable adenopathy or thyromegaly. No JVD Chest: Good effort. Clear to auscultation and percussion. Heart: Regular. No S3, rub or murmur Abdomen: Not distended, soft, PEG in place; nontender and no HSM. No rebound or guarding. Normoactive bowel sounds. Ext: Peripheral pulses intact. No leg edema. Limb contractures. Lane in place. Skin: Warm and dry. No petechiae, rash or ecchymosis. Neuro: Alert. Unable to follow commands. CN 2-12 grossly intact. Sensation grossly intact in all four extremities and DTR are symmetric. Home Medications Medication Instructions Recorded Acyclovir 400 mg GT BID 04/25/17 Baclofen 10 mg GT BID 04/25/17 Benzoyl Peroxide 5% Gel - 1 applic TP BID 04/25/17 Budesonide/Formeterol Fumarate 1 inh PO BID 04/25/17 [SYMBICORT 160/4.5mcg -] Clobazam [Onfi -] 5 mg GT DAILY 04/25/17 Clonazepam 1.5 mg GT TID 04/25/17 Diazepam Rectal Gel [Diastat 10 mg RC PRN PRN 04/25/17 Rectal Gel -] Fluticasone Propionate [Flovent 50 mcg IH DAILY 04/25/17 Diskus] Fructooligosaccharides/Polydex 15 gm GT DAILY 04/25/17 [Fiber-Stat 15 gm/30 ml Liquid] Ipratropium/Albuterol Sulfate 3 ml IH Q6H 04/25/17 [Iprat-Albut 0.5-3(2.5) mg/3 ml] Lactobacillus Acidophilus 1 each GT HS 04/25/17 [Acidophilus] Lamotrigine 200 mg GT BID 04/25/17 Magnesium Hydrox 2400MG/30Ml [Milk 20 ml GT BID 04/25/17 of Magnesia -] Multivitamin [Poly-Vitamin] 1 each GT DAILY 04/25/17 Phenobarbital 48.6 mg GT BID 04/25/17 Ranitidine [Zantac -] 75 mg GT BID 04/25/17 Abnormal Lab Results 02/14/18 02/14/18 02/14/18 18:45 18:45 18:45 RBC MCV Plt Count MPV PT with INR 13.20 H INR 1.12 H PTT (Actin FS) 38.4 H POC VBG pO2 132.0 H D Mixed VBG HCO3 28.9 H Anion Gap 7 L Random Glucose 69 L AST 95 H ALT 143 H Alkaline Phosphatase 325 H Albumin 3.0 L Ur Specific [place] Urine Blood 02/14/18 02/14/18 18:45 21:15 RBC 3.81 L MCV 99.7 H Plt Count 53 L D MPV 11.3 H D PT with INR INR PTT (Actin FS) POC VBG pO2 Mixed VBG HCO3 Anion Gap Random Glucose AST ALT Alkaline Phosphatase Albumin Ur Specific [place] 1.005 L Urine Blood 1+ H ASSESSMENT AND PLAN: 1. AMS/?Seizure disorder - Head CT scan is negative. Patient may have had a seizure or symptoms may be PTSD following the loss of his room mate. There is no evidence of infection. Will check phenobarb level and monitor him closely for seizures. Consult Neurology. Monitor low platelets and elevated LFTs and get an upper abdominal sonogram. Ensure adequate nutrition via PEG. 2. DVT prophylaxis - Lovenox 40 mg SQ q 24 hours. 3. Advance directives - Full code
--- NOTE | 2018-02-15 02:02 | HP ---
CHIEF COMPLAINT: AMS PCP: Pt comes from [facility] [place] HISTORY OF PRESENT ILLNESS: Pt is nonverbal. History taken from [place] health aide at bedside. 22M w/ pmhx of severe MR, cerebral palsy, herpetic meningoencephalitis, and asthma who was sent from [place] for AMS. According to the health aide, pt is normally active and laughing at baseline. However, pt was found to be altered from baseline and not as active. At [place], pt was witnessed to have an episode of tongue-biting, but it was unclear as to whether a tonic-clonic seizure was noted. reports that recently, pt's roommate had and ever since this time, pt seemed to be emotionally withdrawn compared to baseline. At [place], pt was found to desat in the 80s on RA, and hypotensive in the 70s/40s. Limited history was given as health aide at bedside was not the same person taking care of the patient at time of episode. Of note, ED attending, Dr. Cunningham noted facial fasciculations upon arrival in the ED. ER course was notable for: (1) U/A showed 1+ blood, Glu 69. (2) Nebs given (3) Urine cx ordered Recent Travel: Unable to obtain PAST MEDICAL HISTORY: severe MR cerebral palsy herpetic meningoencephalitis asthma PAST SURGICAL HISTORY: Unable to obtain Social History: Unable to obtain Family History: Unable to obtain Allergies No Known Allergies Allergy (Verified 02/14/18 18:16) HOME MEDICATIONS: Home Medications Medication Instructions Recorded Acyclovir 400 mg GT BID 04/25/17 Baclofen 10 mg GT BID 04/25/17 Benzoyl Peroxide 5% Gel - 1 applic TP BID 04/25/17 Budesonide/Formeterol Fumarate 1 inh PO BID 04/25/17 [SYMBICORT 160/4.5mcg -] Clobazam [Onfi -] 5 mg GT DAILY 04/25/17 Clonazepam 1.5 mg GT TID 04/25/17 Diazepam Rectal Gel [Diastat 10 mg RC PRN PRN 04/25/17 Rectal Gel -] Fluticasone Propionate [Flovent 50 mcg IH DAILY 04/25/17 Diskus] Fructooligosaccharides/Polydex 15 gm GT DAILY 04/25/17 [Fiber-Stat 15 gm/30 ml Liquid] Ipratropium/Albuterol Sulfate 3 ml IH Q6H 04/25/17 [Iprat-Albut 0.5-3(2.5) mg/3 ml] Lactobacillus Acidophilus 1 each GT HS 04/25/17 [Acidophilus] Lamotrigine 200 mg GT BID 04/25/17 Magnesium Hydrox 2400MG/30Ml [Milk 20 ml GT BID 04/25/17 of Magnesia -] Multivitamin [Poly-Vitamin] 1 each GT DAILY 04/25/17 Phenobarbital 48.6 mg GT BID 04/25/17 Ranitidine [Zantac -] 75 mg GT BID 04/25/17 REVIEW OF SYSTEMS Unable to obtain PHYSICAL EXAMINATION Vital Signs - 24 hr 02/14/18 02/14/18 02/15/18 18:14 21:43 01:05 Pulse Rate 84 Pulse Rate [ 76 74 Right Radial] Respiratory 24 H 20 23 H Rate Blood Pressure 120/57 L Blood Pressure 129/40 L 119/64 [Right Arm] O2 Sat by Pulse 100 100 95 Oximetry (%) GENERAL: Nonverbal at baseline. Opens eyes. HEENT: NC/AT. PRETTY. Dry mucus membranes. NECK: Supple, no LAD/JVD. LUNGS: Poor inspiratory effort. No w/r/r/ noted. Symmetric chest rise. HEART: RRR. Normal S1, S2. No murmurs appreciated. ABDOMEN: Soft, NT/ND. Normoactive BS in all Q's. G tube in place. : Lane catheter in place. Draining yellow urine. MUSCULOSKELETAL: No peripheral edema noted. UPPER EXTREMITIES: 2+ pulses, warm, well-perfused. No cyanosis. No clubbing. No peripheral edema. B/l hands contracted. LOWER EXTREMITIES: 2+ pulses, warm, well-perfused. No calf tenderness. No peripheral edema. NEUROLOGICAL: Unable to assess. SKIN: Warm, dry, normal turgor, no rashes or lesions noted, normal capillary refill. Laboratory Results - last 24 hr 02/14/18 02/14/18 02/14/18 18:45 18:45 18:45 WBC RBC Hgb Hct MCV MCH MCHC RDW Plt Count MPV Absolute Neuts (auto) Neutrophils % Lymphocytes % Monocytes % Eosinophils % Basophils % Nucleated RBC % PT with INR 13.20 H INR 1.12 H PTT (Actin FS) 38.4 H VBG pH 7.37 POC VBG pCO2 50.8 POC VBG pO2 132.0 H D Mixed VBG HCO3 28.9 H Sodium 140 Potassium 4.4 Chloride 106 Carbon Dioxide 27 Anion Gap 7 L BUN 18 Creatinine 0.6 Creat Clearance w eGFR > 60 Random Glucose 69 L Lactic Acid Calcium 8.7 Magnesium 2.3 Total Bilirubin 0.2 AST 95 H ALT 143 H Alkaline Phosphatase 325 H Creatine Kinase 146 Troponin I < 0.02 B-Natriuretic Peptide Total Protein 7.6 Albumin 3.0 L Urine Color Urine Appearance Urine pH Ur Specific [place] Urine Protein Urine Glucose (UA) Urine Ketones Urine Blood Urine Nitrite Urine Bilirubin Urine Urobilinogen Ur Leukocyte Esterase Urine WBC (Auto) Urine RBC (Auto) 02/14/18 02/14/18 02/14/18 18:45 18:45 18:46 WBC 7.2 RBC 3.81 L Hgb 12.8 Hct 37.9 MCV 99.7 H MCH 33.7 MCHC 33.8 RDW 15.7 Plt Count 53 L D MPV 11.3 H D Absolute Neuts (auto) 4.5 Neutrophils % 62.4 Lymphocytes % 27.4 Monocytes % 6.8 Eosinophils % 3.2 Basophils % 0.2 Nucleated RBC % 0 PT with INR INR PTT (Actin FS) VBG pH POC VBG pCO2 POC VBG pO2 Mixed VBG HCO3 Sodium Potassium Chloride Carbon Dioxide Anion Gap BUN Creatinine Creat Clearance w eGFR Random Glucose Lactic Acid 1.0 Calcium Magnesium Total Bilirubin AST ALT Alkaline Phosphatase Creatine Kinase Troponin I B-Natriuretic Peptide 20.2 Total Protein Albumin Urine Color Urine Appearance Urine pH Ur Specific [place] Urine Protein Urine Glucose (UA) Urine Ketones Urine Blood Urine Nitrite Urine Bilirubin Urine Urobilinogen Ur Leukocyte Esterase Urine WBC (Auto) Urine RBC (Auto) 02/14/18 21:15 WBC RBC Hgb Hct MCV MCH MCHC RDW Plt Count MPV Absolute Neuts (auto) Neutrophils % Lymphocytes % Monocytes % Eosinophils % Basophils % Nucleated RBC % PT with INR INR PTT (Actin FS) VBG pH POC VBG pCO2 POC VBG pO2 Mixed VBG HCO3 Sodium Potassium Chloride Carbon Dioxide Anion Gap BUN Creatinine Creat Clearance w eGFR Random Glucose Lactic Acid Calcium Magnesium Total Bilirubin AST ALT Alkaline Phosphatase Creatine Kinase Troponin I B-Natriuretic Peptide Total Protein Albumin Urine Color Straw Urine Appearance Clear Urine pH 8.0 Ur Specific [place] 1.005 L Urine Protein Negative Urine Glucose (UA) Negative Urine Ketones Negative Urine Blood 1+ H Urine Nitrite Negative Urine Bilirubin Negative Urine Urobilinogen Negative Ur Leukocyte Esterase Negative Urine WBC (Auto) <1 Urine RBC (Auto) <1 ASSESSMENT/PLAN: 22M w/ pmhx of severe MR, cerebral palsy, herpetic meningoencephalitis, and asthma who was sent from [place] for AMS. #AMS likely 2/2 seizure; Pt had witnessed tongue-biting by health aide possibly due to seizure. Additionally, per health aide, since the passing of pt's roommate 2 weeks ago, pt has had an unusual change in behavior since that time. Symptoms could be attributed possibly to some form of emotional distress. -check Phenobarbital level -monitor closely for seizure activity -neuro checks Q4H -neuro consult ordered Resume home meds: -Phenobarbital 48.6 mg GT BID -Lamotrigine 200 mg GT BID -Diazepam Rectal gel 10 mg RC PRN -Clonazepam 1.5 mg GT TID -Clozabam 5 mg GT QD -Baclofen 10 mg GT BID -Diazepam rectal gel 10 mg RC PRN #Thrombocytopenia/elevated LFTs -Upper abdominal U/s ordered to r/o hepatic/splenic pathology -recheck CBC and BMP in AM #Asthma Resume home meds: -Duonebs 3mL IH Q6H -Symbicort 1 inh PO BID -Flovent 50 mcg IH QD #Hx of herpes meningoencephalitis Resume home med: -Acyclovir 400 mg GT BID #GI Ppx Resume home med: -Zantac 75 mg PO BID #DVT Ppx -Lovenox 40 mg SQ QD #FEN -NS @ 75 -recheck lytes in AM dispo -admit to obs Visit type - Emergency Visit Emergency Visit: Yes ED Registration Date: 02/14/18 Care time: The patient presented to the Emergency Department on the above date and was hospitalized for further evaluation of their emergent condition. - New Patient This patient is new to me today: Yes Date on this admission: 02/15/18 - Critical Care Critical Care patient: No
[2018-02-15] MEDS ORDERED: diazePAM ACUDIAL 5-7.5-10 MG 1 EACH KIT RC PRN (04:22)
[2018-02-15] MEDS ORDERED: SODIUM CHLORIDE 1,000 ML IV SCH (04:30)
[2018-02-15] MEDS: clonazePAM 0.5 MG TABLET GT SCH ×3 (06:13→22:51)
[2018-02-15 08:07] VITALS: BMI 19.3
[2018-02-15 09:10] LABS: BASO % 0.1 % (0-2.0); EOS % 1.7 % (0-4.5); HEMATOCRIT 39.4 % (35.4-49); HEMOGLOBIN 13.3 GM/dL (11.7-16.9); LYMPH % 14.4 % (8-40); MCH 33.9 pg (25.7-33.7); MCHC 33.9 g/dl (32.0-35.9); MEAN PLT VOLUME 11.3 fl (7.5-11.1); MONO % 3.1 % (3.8-10.2); NEUT % 80.7 % (42.8-82.8); PLATELET COUNT 54 K/MM3 (134-434); RBC 3.94 M/mm3 (4.00-5.60); RDW 16.1 % (11.9-15.9); WHITE BLOOD COUNT 9.8 K/mm3 (4.0-10.0)
--- NOTE | 2018-02-15 09:42 | PN ---
Physical Exam: SUBJECTIVE: Patient seen and examined this AM. His aide is in the room and says that he is not himself. At baseline he is usually smiling and laughing, and that though nonverbal, he can interact some. OBJECTIVE: Vital Signs Period Temp Pulse Resp BP Sys/Linares Pulse Ox Last 24 Hr 97.2 F-97.6 F 74-90 20-25 102-129/40-64 93-100 GENERAL: Nonverbal, awake but not alert, no acute distress HEAD: Microocephalic, atraumatic. EYES: PERRL, no scleral icterus EARS, NOSE, THROAT: oropharynx clear without exudates. Moist mucous membranes. LUNGS: Poor inspiratory effort HEART: Regular rate and rhythm, normal S1 and S2 without murmur ABDOMEN: Soft, nontender to palpation, normoactive bowel sounds MUSCULOSKELETAL: Contracted extremities NEUROLOGICAL: Nonverbal, unable to interact or follow commands Laboratory Results - last 24 hr 02/14/18 02/14/18 02/14/18 18:45 18:45 18:45 WBC RBC Hgb Hct MCV MCH MCHC RDW Plt Count MPV Absolute Neuts (auto) Neutrophils % Lymphocytes % Monocytes % Eosinophils % Basophils % Nucleated RBC % PT with INR 13.20 H INR 1.12 H PTT (Actin FS) 38.4 H VBG pH 7.37 POC VBG pCO2 50.8 POC VBG pO2 132.0 H D Mixed VBG HCO3 28.9 H Sodium 140 Potassium 4.4 Chloride 106 Carbon Dioxide 27 Anion Gap 7 L BUN 18 Creatinine 0.6 Creat Clearance w eGFR > 60 Random Glucose 69 L Lactic Acid Calcium 8.7 Magnesium 2.3 Total Bilirubin 0.2 AST 95 H ALT 143 H Alkaline Phosphatase 325 H Creatine Kinase 146 Troponin I < 0.02 B-Natriuretic Peptide Total Protein 7.6 Albumin 3.0 L Urine Color Urine Appearance Urine pH Ur Specific [place] Urine Protein Urine Glucose (UA) Urine Ketones Urine Blood Urine Nitrite Urine Bilirubin Urine Urobilinogen Ur Leukocyte Esterase Urine WBC (Auto) Urine RBC (Auto) 02/14/18 02/14/18 02/14/18 18:45 18:45 18:46 WBC 7.2 RBC 3.81 L Hgb 12.8 Hct 37.9 MCV 99.7 H MCH 33.7 MCHC 33.8 RDW 15.7 Plt Count 53 L D MPV 11.3 H D Absolute Neuts (auto) 4.5 Neutrophils % 62.4 Lymphocytes % 27.4 Monocytes % 6.8 Eosinophils % 3.2 Basophils % 0.2 Nucleated RBC % 0 PT with INR INR PTT (Actin FS) VBG pH POC VBG pCO2 POC VBG pO2 Mixed VBG HCO3 Sodium Potassium Chloride Carbon Dioxide Anion Gap BUN Creatinine Creat Clearance w eGFR Random Glucose Lactic Acid 1.0 Calcium Magnesium Total Bilirubin AST ALT Alkaline Phosphatase Creatine Kinase Troponin I B-Natriuretic Peptide 20.2 Total Protein Albumin Urine Color Urine Appearance Urine pH Ur Specific [place] Urine Protein Urine Glucose (UA) Urine Ketones Urine Blood Urine Nitrite Urine Bilirubin Urine Urobilinogen Ur Leukocyte Esterase Urine WBC (Auto) Urine RBC (Auto) 02/14/18 02/15/18 21:15 08:35 WBC 9.8 RBC 3.94 L Hgb 13.3 Hct 39.4 MCV 100.0 H MCH 33.9 H MCHC 33.9 RDW 16.1 H Plt Count 54 L MPV 11.3 H Absolute Neuts (auto) 7.9 Neutrophils % 80.7 D Lymphocytes % 14.4 D Monocytes % 3.1 L Eosinophils % 1.7 Basophils % 0.1 Nucleated RBC % 0 PT with INR INR PTT (Actin FS) VBG pH POC VBG pCO2 POC VBG pO2 Mixed VBG HCO3 Sodium Potassium Chloride Carbon Dioxide Anion Gap BUN Creatinine Creat Clearance w eGFR Random Glucose Lactic Acid Calcium Magnesium Total Bilirubin AST ALT Alkaline Phosphatase Creatine Kinase Troponin I B-Natriuretic Peptide Total Protein Albumin Urine Color Straw Urine Appearance Clear Urine pH 8.0 Ur Specific [place] 1.005 L Urine Protein Negative Urine Glucose (UA) Negative Urine Ketones Negative Urine Blood 1+ H Urine Nitrite Negative Urine Bilirubin Negative Urine Urobilinogen Negative Ur Leukocyte Esterase Negative Urine WBC (Auto) <1 Urine RBC (Auto) <1 Active Medications Generic Name Dose Route Start Last Admin Trade Name Freq PRN Reason Stop Dose Admin Acyclovir 400 mg 02/15/18 10:00 Zovirax Oral Suspension - GT BID JORGE Al Hydroxide/Mg Hydroxide 20 ml 02/15/18 10:00 Mylanta Oral Suspension - GT BID JORGE Albuterol/Ipratropium 1 amp 02/15/18 08:00 Duoneb - NEB RQID JORGE Baclofen 10 mg 02/15/18 10:00 Lioresal - GT BID JORGE Budesonide/Formoterol Fumarate 1 puff 02/15/18 10:00 Symbicort 160/4.5mcg - IH BID JORGE Clobazam 5 mg 02/15/18 10:00 Onfi - GT DAILY JORGE Clonazepam 1.5 mg 02/15/18 06:00 02/15/18 06:13 Klonopin - GT 1.5 mg TID JORGE Administration Diazepam 10 mg 02/15/18 04:22 Diastat Rectal Gel - RC PRN PRN SEIZURES Enoxaparin Sodium 40 mg 02/15/18 10:00 Lovenox - SQ DAILY JORGE Sodium Chloride 1,000 mls @ 75 mls/hr 02/15/18 04:30 02/15/18 05:00 Normal Saline - IV 02/15/18 17:49 75 mls/hr ASDIR JORGE Administration Lactobacillus Acidophilus 1 tab 02/15/18 22:00 Bacid - GT HS JORGE Lamotrigine 200 mg 02/15/18 10:00 Lamictal - GT BID JORGE Non-Formulary Medication 50 mcg 02/15/18 10:00 Fluticasone Propionate [Flovent Diskus] IH DAILY JORGE Non-Formulary Medication 15 gm 02/15/18 10:00 Fructooligosaccharides/Polydex [Fiber-Stat 15 Gm/30 Ml Liquid] GT DAILY JORGE Phenobarbital 45 mg 02/15/18 10:00 Phenobarbital - GT BID JORGE Ranitidine HCl 75 mg 02/15/18 10:00 Zantac Oral Solution - GT BID JORGE ASSESSMENT/PLAN: 22 yo Male with PMH of severe MR, cerebral palsy, herpetic meningoencephalitis, and asthma who was sent from [place] for AMS. Change in Mental Status -Possibly due to seizure activity, though likely due to Healthcare Acquired Pneumonia -CXR noted with worsening white out of lung on the left -CT chest: Consolidation with air bronchogram in both lower lobes as well as extensive airspace disease in left upper lobe and patchy airspace disease in RUL consistent with pneumonia -Pt received Zosyn on recent admission for pneumonia -Zosyn 3.375 gm Q8 for now and will reconsult ID on this admission -Neurology consulted as well due to concern for seizure like activity - facial twitching Hx of Seizures -Neurology consulted - will await recommendations -Resume home medications, Phenobartibol 45 mg GT BID, level pending, -Lamictal 200 gm GT BID -Diazepam Rectal gel 10 mg RC PRN for active seizure -Clonazepam 1.5 mg GT TID -Clobazam 5 mg GT QD -Baclofen 10 mg GT BID -Seizure precautions Transaminitis -Pt commonly with transaminitis on admission -RUQ ultrasound reveals fatty liver with otherwise limited exam Asthma -Continue home meds -Duonebs Q6 -Symbicort BID -Flovent Daily Hx Herpetic Meningoencephalitis -Continue home Acyclovir 400 mg GT BID GERD -Zantac 150 mg GT BID DVT Prophylaxis -Lovenox 40 mg SQ Daily FEN -Fluids: none -Electrolytes: No electrolyte abnormalities, BMP in AM -Nutrition: Tube feeds Jevity titrate to 35 cc/hr with 40 cc/hr (equivalent ammount to tube feeds at [place] over 24 hours instead of 14) Disposition Med/Surg Visit type - Emergency Visit Emergency Visit: Yes ED Registration Date: 02/14/18 Care time: The patient presented to the Emergency Department on the above date and was hospitalized for further evaluation of their emergent condition. - New Patient This patient is new to me today: Yes Date on this admission: 02/15/18 - Critical Care Critical Care patient: No
[2018-02-15 09:44] LABS: ALK PHOS 312 U/L (45-117); ANION GAP 3 MMOL/L (8-16); BILIRUBIN,TOTAL 0.2 mg/dL (0.2-1); BLOOD UREA NITROGEN 15 mg/dL (7-18); CALCIUM 9.2 mg/dL (8.5-10.1); CHLORIDE 110 mmol/L (98-107); CO2 28 mmol/L (21-32); CREATININE 0.5 mg/dL (0.55-1.3); GLUCOSE,RANDOM 68 mg/dL (74-106); POTASSIUM 4.1 mmol/L (3.5-5.1); SGOT/AST 80 U/L (15-37); SGPT/ALT 127 U/L (13-61); SODIUM 141 mmol/L (136-145); TOT PROT 7.7 g/dl (6.4-8.2)
[2018-02-15] MEDS ORDERED: [UNRECOGNIZED DRUG - MIXTURE] GT SCH (10:00)
[2018-02-15] MEDS ORDERED: PATIENT'S OWN MEDICATION (NON-FORMULARY) (Fluticasone Propionate [Flovent Diskus] 50 MCG) IH SCH (10:00)
--- NOTE | 2018-02-15 10:38 | EKG ---
Test Reason : Blood Pressure : / mmHG Vent. Rate : 067 BPM Atrial Rate : 067 BPM P-R Int : 164 ms QRS Dur : 118 ms QT Int : 394 ms P-R-T Axes : 052 072 048 degrees QTc Int : 416 ms NORMAL SINUS RHYTHM WITH SINUS ARRHYTHMIA INFERIOR-POSTERIOR INFARCT (CITED ON OR BEFORE 26-JUN-2016) ABNORMAL ECG WHEN COMPARED WITH ECG OF 30-DEC-2017 21:22, VENT. RATE HAS DECREASED BY 39 BPM T WAVE VARIATION Confirmed by MAIKOL BARROS MD ([id number]) on 02/15/2018 10:38:20 AM Referred By: Confirmed By:MAIKOL BARROS MD
[2018-02-15] MEDS ORDERED: PT OWN MED DRAWER 7, Y5N ONE (10:48)
[2018-02-15] MEDS: cloBAZam 10 MG TABLET GT SCH (10:51)
[2018-02-15] MEDS: BACLOFEN 10 MG TABLET (FP) GT SCH ×2 (10:52→22:50)
[2018-02-15] MEDS: RANITIDINE HCL 150 MG/10 ML UNIT-DOSE GT SCH ×2 (10:53→22:49)
[2018-02-15] MEDS: MAG HYDROX/AL HYDROX/SIMETH 30 ML UNIT-DOSE CUP GT SCH ×2 (10:54→22:48)
[2018-02-15] MEDS: lamoTRIgine 100 MG TABLET (FP) GT SCH ×2 (10:56→22:51)
[2018-02-15] MEDS: ACYCLOVIR 200 MG/5 ML LIQUID GT SCH ×2 (10:56→22:57)
[2018-02-15] MEDS: PHENobarbital 30 MG TABLET GT SCH ×2 (10:59→22:52)
--- NOTE | 2018-02-15 13:31 | CON.NEURO ---
Consult Consult Specialty:: [facility] Referred by:: ER - History of Present Illness History of Present Illness: 22-year-old right-handed man with history of Cerebral palsy Mental retardation Questionable epilepsy Contracture Patient lives in a nursing home patient was noted yesterday with the episode of altered sensorium At baseline according to the staff patient is not able to give me any history, patient with a history of no seizure Patient was noted to be less attentive Questionable episode of tongue biting No headache Patient is incontinent - History Source History Provided By: Medical Record - Past Medical History UNION REPRESENTATIVE: Yes: Other (Mental retardation) Pulmonary: Yes: Asthma Gastrointestinal: Yes: Other (PEG) Infectious Disease: Yes: Herpes Zoster Musculoskeletal: Yes: Other (Functional Qaudraplegic) - Alcohol/Substance Use Hx Alcohol Use: No - Smoking History Smoking history: Never smoked Have you smoked in the past 12 months: No Aproximately how many cigarettes per day: 0 - Social History Usual Living Arrangement: Detention ADL: Support Services History of Recent Travel: No Home Medications - Allergies Allergies/Adverse Reactions: Allergies Allergy/AdvReac Type Severity Reaction Status Date / Time No Known Allergies Allergy Verified 02/14/18 18:16 - Home Medications Home Medications: Ambulatory Orders Acyclovir 400 mg GT BID 04/25/17 Baclofen 10 mg GT BID 04/25/17 Benzoyl Peroxide 5% Gel - 1 applic TP BID 04/25/17 Budesonide/Formeterol Fumarate [SYMBICORT 160/4.5mcg -] 1 inh PO BID 04/25/17 Clobazam [Onfi -] 5 mg GT DAILY 04/25/17 Clonazepam 1.5 mg GT TID 04/25/17 Diazepam Rectal Gel [Diastat Rectal Gel -] 10 mg RC PRN PRN 04/25/17 Fluticasone Propionate [Flovent Diskus] 50 mcg IH DAILY 04/25/17 Fructooligosaccharides/Polydex [Fiber-Stat 15 gm/30 ml Liquid] 15 gm GT DAILY Ipratropium/Albuterol Sulfate [Iprat-Albut 0.5-3(2.5) mg/3 ml] 3 ml IH Q6H 04/25 Lactobacillus Acidophilus [Acidophilus] 1 each GT HS 04/25/17 Lamotrigine 200 mg GT BID 04/25/17 Magnesium Hydrox 2400MG/30Ml [Milk of Magnesia -] 20 ml GT BID 04/25/17 Multivitamin [Poly-Vitamin] 1 each GT DAILY 04/25/17 Phenobarbital 48.6 mg GT BID 04/25/17 Ranitidine [Zantac -] 75 mg GT BID 04/25/17 Physical Exam-Neuro Vital Signs: Vital Signs Temperature 97.3 F L 02/15/18 10:00 Pulse Rate 84 02/15/18 10:00 Respiratory Rate 20 02/15/18 10:00 Blood Pressure 101/47 L 02/15/18 10:00 O2 Sat by Pulse Oximetry (%) 95 02/15/18 10:00 Labs: CBC, BMP 02/15/18 08:35 02/15/18 08:35 INR, PTT INR 1.12 (0.83-1.09) H 02/14/18 18:45 - Neuro Exam Level Of Consciousness: Yes: Alert Eyes: Yes: PERRLA Speech: Other DTR's: 3+ Left Bicep, 3+ Right Bicep, 3+ Left Brachioradialis, 3+ Right Brachioradialis Response to light touch: Abnormal (unable to assess) Motor Strength: 2/5: Right Leg (severe contracture all over) Gait: Deferred Imaging - Results Cat Scan: Image Reviewed Problem List - Problems (1) Epilepsy Assessment/Plan: history of cerebral palsy with mental retardation Most probably breakthrough seizure 1. Neuro checks every 2 hours 2. EEG 3. Seizure precautions 4. Ativan when necessary breakthrough seizure 5. Check Lamictal level 6. No need for MRI Thank you for the kind referral Code(s): G40.909 - EPILEPSY, UNSP, NOT INTRACTABLE, WITHOUT STATUS EPILEPTICUS
[2018-02-15] MEDS: ENOXAPARIN NA (PORCINE) 40 MG/0.4 ML DISP.SYRIN SQ SCH (13:58)
--- NOTE | 2018-02-15 14:38 | PN ---
Teaching Attending Note Name of Resident: Emile Andrade ATTENDING PHYSICIAN STATEMENT I saw and evaluated the patient. I reviewed the resident's note and discussed the case with the resident. I agree with the resident's findings and plan as documented. SUBJECTIVE:info per aid as pt is not verbal he remains more lethargic than baseline. typically alert and tracks. is nonverbal and needs assistance with all ADL's. he reports that he has been drowsy since yesterday. denies him having any signs of being bothered by anything at this time also noted to have hematuria which is chronic per aid is known to have frequent seizures, unclear if they have any provoking factors. unknown if anti-eleptics have been adjusted OBJECTIVE: Last Vital Signs Temp Pulse Resp BP Pulse Ox 97.3 F L 84 20 101/47 L 95 02/15/18 10:00 02/15/18 10:00 02/15/18 10:00 02/15/18 10:00 02/15/18 10:00 General lethargic. responds to tactile stimuli CV S1 S2 RRR no murmur/rub/gallop Lungs diffuse rhonchi. decreased breath sounds on L anteriorly. poor inspiratory effort abdomen soft NT/ND Extremities contracted ASSESSMENT AND PLAN: 22yo M with PMH MR, CP, herpetic mengioencephalitis and asthma presented to the ER with hypoxia and hypotensive after seizure episode. as per Aid yesterday he has been more lethargic for the past 2 weeks 1. Acute toxic metabilic encephalopathy- likely due to being post-ictal after seizure. remains lethargic at this time. will need to r/o some form of infection that also be contributing. CXR showing almost complete opacification from the Left and due to body habitus difficult to determine if this is worse than previous. will obtain CT chest to further evaluate. will hold abx at this time. Neuro consulted to evaluate anti-eleptics. seizure precautions. medication levels pending. UA negative for infection. do not believe patient is suffering from PTSD as has only been 2 weeks and hard to determine if patient expressing symptoms consistent with PTSD. perhaps pt is grieving for loss of loved one which is can be considered typical behavior 2. Transaminitis- may due to seizure activity. stable. cont to trend 3. Hematuria- stable per aid at bedside. Hgb stable. will monitor 4. acute hypoxic respiratory distress- could be due to seizure although can not r/o infection. CT chest as stated above 5. MR 6. CP 7. asthma- cont inhalers 7. DVT ppx- lovenox
[2018-02-15] MEDS: ALBUTEROL SO4 2.5/IPRATROPIUM 0.5 INH SOL 3 ML VIAL.NEB. NEB SCH ×2 (15:36→20:10)
[2018-02-15] MEDS: MULTIVIT-MINERALS ORAL LIQUID GT SCH (16:10)
[2018-02-15] MEDS: BUDESONIDE/FORMETEROL FUMARATE 160/4.5 mcg INHALER IH SCH ×2 (16:10→22:54)
[2018-02-15] MEDS ORDERED: DEXTROSE 5%-WATER - 50 ML IVPB ONE ×2 (17:36→22:46)
[2018-02-15] MEDS ORDERED: PIPERACILLIN/TAZOBACTAM 3.375 GM VIAL IVPB ONE ×2 (17:36→22:46)
[2018-02-15] MEDS: PIPERACILLIN/TAZOB 3.375 GM 3.375 GM in DEXTROSE 5%-WATER - 50 ML IVPB SCH (17:49)
[2018-02-15] MEDS: LACTOBACILLUS ACIDOPHILUS 1 TABLET GT SCH (22:50)
[2018-02-16] MEDS: PIPERACILLIN/TAZOB 3.375 GM 3.375 GM in DEXTROSE 5%-WATER - 50 ML IVPB SCH ×3 (02:44→17:36)
[2018-02-16] MEDS: clonazePAM 0.5 MG TABLET GT SCH ×3 (05:28→23:45)
[2018-02-16] MEDS: ALBUTEROL SO4 2.5/IPRATROPIUM 0.5 INH SOL 3 ML VIAL.NEB. NEB SCH ×4 (07:40→19:48)
[2018-02-16 09:19] LABS: BASO % 0.1 % (0-2.0); EOS % 0.7 % (0-4.5); HEMATOCRIT 39.2 % (35.4-49); HEMOGLOBIN 13.3 GM/dL (11.7-16.9); LYMPH % 6.7 % (8-40); MCH 33.7 pg (25.7-33.7); MEAN CELL VOLUME 99.1 fl (80-96); MEAN PLT VOLUME 9.9 fl (7.5-11.1); MONO % 5.7 % (3.8-10.2); NEUT % 86.8 % (42.8-82.8); PLATELET COUNT 83 K/MM3 (134-434); RBC 3.96 M/mm3 (4.00-5.60); RDW 15.8 % (11.9-15.9); WHITE BLOOD COUNT 9.5 K/mm3 (4.0-10.0)
[2018-02-16 09:41] LABS: ALBUMIN 3.2 g/dl (3.4-5.0); ALK PHOS 385 U/L (45-117); ANION GAP 7 MMOL/L (8-16); BILIRUBIN,TOTAL 0.5 mg/dL (0.2-1); BLOOD UREA NITROGEN 15 mg/dL (7-18); CALCIUM 9.6 mg/dL (8.5-10.1); CHLORIDE 105 mmol/L (98-107); CO2 27 mmol/L (21-32); CREATININE 0.8 mg/dL (0.55-1.3); GLUCOSE,RANDOM 82 mg/dL (74-106); PHOSPHOROUS 3.2 mg/dL (2.5-4.9); POTASSIUM 4.6 mmol/L (3.5-5.1); SGOT/AST 107 U/L (15-37); SGPT/ALT 125 U/L (13-61); SODIUM 138 mmol/L (136-145); TOT PROT 8.5 g/dl (6.4-8.2)
[2018-02-16] MEDS ORDERED: KETOROLAC TROMETHAMINE 15 MG/ML VIAL IVPUSH PRN (10:54)
[2018-02-16] MEDS ORDERED: DOCUSATE NA 100 MG/10 ML UNIT-DOSE CUPS PO PRN (10:57)
[2018-02-16] MEDS ORDERED: SODIUM CHLORIDE 1,000 ML IV SCH (11:00)
[2018-02-16] MEDS: RANITIDINE HCL 150 MG/10 ML UNIT-DOSE GT SCH ×2 (11:19→23:45)
[2018-02-16] MEDS: MAG HYDROX/AL HYDROX/SIMETH 30 ML UNIT-DOSE CUP GT SCH ×2 (11:19→23:45)
[2018-02-16] MEDS: ENOXAPARIN NA (PORCINE) 40 MG/0.4 ML DISP.SYRIN SQ SCH (11:20)
[2018-02-16] MEDS: cloBAZam 10 MG TABLET GT SCH (11:20)
[2018-02-16] MEDS: BACLOFEN 10 MG TABLET (FP) GT SCH ×2 (11:20→23:46)
[2018-02-16] MEDS: BUDESONIDE/FORMETEROL FUMARATE 160/4.5 mcg INHALER IH SCH ×2 (11:21→23:46)
[2018-02-16] MEDS ORDERED: PT OWN MED DRAWER 7, Y5N ONE (11:24)
[2018-02-16] MEDS: PHENobarbital 30 MG TABLET GT SCH ×2 (11:28→23:50)
[2018-02-16] MEDS: ACYCLOVIR 200 MG/5 ML LIQUID GT SCH ×2 (11:29→23:44)
[2018-02-16] MEDS: MULTIVIT-MINERALS ORAL LIQUID GT SCH (11:29)
--- NOTE | 2018-02-16 11:29 | PN ---
Physical Exam: SUBJECTIVE: Patient seen and examined this AM. He is resting in bed currently in similar state as I saw him yesterday. OBJECTIVE: Vital Signs Period Temp Pulse Resp BP Sys/Linares Pulse Ox Last 24 Hr 97.7 F-101.5 F 80-118 20-24 90-112/41-61 95-95 GENERAL: Nonverbal, awake but not alert, no acute distress HEAD: Microocephalic, atraumatic. EYES: PERRL, no scleral icterus EARS, NOSE, THROAT: oropharynx clear without exudates. Moist mucous membranes. LUNGS: Poor inspiratory effort HEART: Regular rate and rhythm, normal S1 and S2 without murmur ABDOMEN: Soft, nontender to palpation, normoactive bowel sounds MUSCULOSKELETAL: Contracted extremities NEUROLOGICAL: Nonverbal, unable to interact or follow commands Laboratory Results - last 24 hr 02/16/18 02/16/18 08:25 08:25 WBC 9.5 RBC 3.96 L Hgb 13.3 Hct 39.2 MCV 99.1 H MCH 33.7 MCHC 34.0 RDW 15.8 Absolute Neuts (auto) 8.3 H Neutrophils % 86.8 H Lymphocytes % 6.7 L D Monocytes % 5.7 D Eosinophils % 0.7 Basophils % 0.1 Nucleated RBC % 0 Sodium 138 Potassium 4.6 Chloride 105 Carbon Dioxide 27 Anion Gap 7 L BUN 15 Creatinine 0.8 Creat Clearance w eGFR > 60 Random Glucose 82 Calcium 9.6 Phosphorus 3.2 Magnesium 2.0 Total Bilirubin 0.5 AST 107 H ALT 125 H Alkaline Phosphatase 385 H Total Protein 8.5 H Albumin 3.2 L Active Medications Generic Name Dose Route Start Last Admin Trade Name Debbie PRN Reason Stop Dose Admin Acyclovir 400 mg 02/15/18 10:00 02/15/18 22:57 Zovirax Oral Suspension - GT 400 mg BID JORGE Administration Al Hydroxide/Mg Hydroxide 20 ml 02/15/18 10:00 02/15/18 22:48 Mylanta Oral Suspension - GT 20 ml BID JORGE Administration Albuterol/Ipratropium 1 amp 02/15/18 08:00 02/16/18 07:40 Duoneb - NEB 1 amp RQID JORGE Administration Baclofen 10 mg 02/15/18 10:00 02/15/18 22:50 Lioresal - GT 10 mg BID JORGE Administration Budesonide/Formoterol Fumarate 1 puff 02/15/18 10:00 02/15/18 22:54 Symbicort 160/4.5mcg - IH Not Given BID [facility] Clobazam 5 mg 02/15/18 10:00 02/15/18 10:51 Onfi - GT 5 mg DAILY JORGE Administration Clonazepam 1.5 mg 02/15/18 06:00 02/16/18 05:28 Klonopin - GT 1.5 mg TID JORGE Administration Diazepam 10 mg 02/15/18 04:22 Diastat Rectal Gel - RC PRN PRN SEIZURES Docusate Sodium 200 mg 02/16/18 10:57 Colace Liquid - PO DAILY PRN CONSTIPATION Enoxaparin Sodium 40 mg 02/15/18 10:00 02/15/18 13:58 Lovenox - SQ 40 mg DAILY JORGE Administration Piperacillin Sod/Tazobactam 50 mls @ 100 mls/hr 02/15/18 18:00 02/16/18 02:44 Sod 3.375 gm/ Dextrose IVPB 100 mls/hr Q8H-IV JORGE Administration Protocol Azithromycin 500 mg in 250 mls @ 250 mls/hr 02/16/18 11:30 Zithromax 500mg Ivpb (Pre-Docked) IVPB DAILY [facility] Sodium Chloride 1,000 mls @ 100 mls/hr 02/16/18 11:00 Normal Saline - IV ASDIR JORGE Ketorolac Tromethamine 15 mg 02/16/18 10:54 Toradol Injection - IVPUSH 02/21/18 10:53 Q6H PRN PAIN LEVEL 4 - 6 Lactobacillus Acidophilus 1 tab 02/15/18 22:00 02/15/18 22:50 Bacid - GT 1 tab HS JORGE Administration Lamotrigine 200 mg 02/15/18 10:00 02/15/18 22:51 Lamictal - GT 200 mg BID JORGE Administration Non-Formulary Medication 50 mcg 02/15/18 10:00 02/15/18 16:05 Fluticasone Propionate [Flovent Diskus] IH Not Given DAILY JORGE Phenobarbital 45 mg 02/15/18 10:00 02/15/18 22:52 Phenobarbital - GT 45 mg BID JORGE Administration Polyethylene Glycol 17 gm 02/16/18 11:00 Miralax (For Daily Use) - PO BID [facility] Ranitidine HCl 75 mg 10/08/18 10:00 02/15/18 22:49 Zantac Oral Solution - GT 75 mg BID JORGE Administration ASSESSMENT/PLAN: 22 yo Male with PMH of severe MR, cerebral palsy, herpetic meningoencephalitis, and asthma who was sent from [facility] for AMS. Change in Mental Status -Possibly due to seizure activity, though likely due to Healthcare Acquired Pneumonia -CXR noted with worsening white out of lung on the left -CT chest: Consolidation with air bronchogram in both lower lobes as well as extensive airspace disease in left upper lobe and patchy airspace disease in RUL consistent with pneumonia -Pt received Zosyn on recent admission for pneumonia -Zosyn 3.375 gm Q8, Azithromycin 500 mg IV Daily -Hold tube feeds -Neurology consulted as well due to concern for seizure like activity - facial twitching Hx of Seizures -Neurology consulted - will await recommendations -Resume home medications, Phenobartibol 45 mg GT BID, level pending -Lamictal 200 gm GT BID, level pending -Diazepam Rectal gel 10 mg RC PRN for active seizure -Clonazepam 1.5 mg GT TID -Clobazam 5 mg GT QD -Baclofen 10 mg GT BID -Seizure precautions -No need for MRI Hypoglycemia -D5 NS @ 125 cc/hr -BGMs Q6, notify if > 200 Transaminitis -Pt commonly with transaminitis on admission -RUQ ultrasound reveals fatty liver with otherwise limited exam Asthma -Continue home meds -Duonebs Q6 -Symbicort BID -Flovent Daily Hx Herpetic Meningoencephalitis -Continue home Acyclovir 400 mg GT BID GERD -Zantac 150 mg GT BID DVT Prophylaxis -Lovenox 40 mg SQ Daily FEN -Fluids: D5 NS @125 cc/hr -Electrolytes: No electrolyte abnormalities, BMP in AM -Nutrition: Hold Tube Feeds Disposition Med/Surg Visit type - Emergency Visit Emergency Visit: Yes ED Registration Date: 02/16/18 Care time: The patient presented to the Emergency Department on the above date and was hospitalized for further evaluation of their emergent condition. - New Patient This patient is new to me today: No - Critical Care Critical Care patient: No
[2018-02-16] MEDS ORDERED: DEXTROSE 5%-WATER - 50 ML IVPB ONE ×2 (11:48→17:23)
[2018-02-16] MEDS ORDERED: PIPERACILLIN/TAZOBACTAM 3.375 GM VIAL IVPB ONE ×2 (11:48→17:22)
[2018-02-16] MEDS: lamoTRIgine 100 MG TABLET (FP) GT SCH ×2 (11:57→23:45)
[2018-02-16] MEDS: AZITHROMYCIN IVPB 500 MG/250 ML BAG IVPB SCH (12:44)
--- NOTE | 2018-02-16 14:19 | CON.ID ---
Consult Consult Specialty:: infectious diseases Reason for Consultation:: pneumonia,sepsis - History of Present Illness Chief Complaint: sob History of Present Illness: patient is non verbal because of his condition history obtained from the transfer charts and notes,patient has been admitted before couple of times with pneumonia 22M w/ pmhx of severe MR, cerebral palsy, herpetic meningoencephalitis, and asthma who was sent from [place] for AMS. According to the health aide, pt is normally active and laughing at baseline. However, pt was found to be altered from baseline and not as active. At [place], pt was witnessed to have an episode of tongue-biting, but it was unclear as to whether a tonic-clonic seizure was noted. GREEN reports that recently, pt's roommate had and ever since this time, pt seemed to be emotionally withdrawn compared to baseline. At [place], pt was found to desat in the 80s on RA, and hypotensive in the 70s/40s. 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: Other (Mental retardation) Pulmonary: Yes: Asthma Gastrointestinal: Yes: Other (PEG) Infectious Disease: Yes: Herpes Zoster Musculoskeletal: Yes: Other (Functional Qaudraplegic) - Alcohol/Substance Use Hx Alcohol Use: No - Smoking History Smoking history: Never smoked Have you smoked in the past 12 months: No Aproximately how many cigarettes per day: 0 - Social History Usual Living Arrangement: Long-Term ADL: Support Services History of Recent Travel: No Home Medications - Allergies Allergies/Adverse Reactions: Allergies Allergy/AdvReac Type Severity Reaction Status Date / Time No Known Allergies Allergy Verified 02/14/18 18:16 - Home Medications Home Medications: Ambulatory Orders Acyclovir 400 mg GT BID 04/25/17 Baclofen 10 mg GT BID 04/25/17 Benzoyl Peroxide 5% Gel - 1 applic TP BID 04/25/17 Budesonide/Formeterol Fumarate [SYMBICORT 160/4.5mcg -] 1 inh PO BID 04/25/17 Clobazam [Onfi -] 5 mg GT DAILY 04/25/17 Clonazepam 1.5 mg GT TID 04/25/17 Diazepam Rectal Gel [Diastat Rectal Gel -] 10 mg RC PRN PRN 04/25/17 Fluticasone Propionate [Flovent Diskus] 50 mcg IH DAILY 04/25/17 Fructooligosaccharides/Polydex [Fiber-Stat 15 gm/30 ml Liquid] 15 gm GT DAILY Ipratropium/Albuterol Sulfate [Iprat-Albut 0.5-3(2.5) mg/3 ml] 3 ml IH Q6H 04/25 Lactobacillus Acidophilus [Acidophilus] 1 each GT HS 04/25/17 Lamotrigine 200 mg GT BID 04/25/17 Magnesium Hydrox 2400MG/30Ml [Milk of Magnesia -] 20 ml GT BID 04/25/17 Multivitamin [Poly-Vitamin] 1 each GT DAILY 04/25/17 Phenobarbital 48.6 mg GT BID 04/25/17 Ranitidine [Zantac -] 75 mg GT BID 04/25/17 Review of Systems Unable to obtain ROS, reason: unable to obtain Physical Exam Vital Signs: Vital Signs Temperature 99.6 F 02/16/18 13:36 Pulse Rate 113 H 02/16/18 13:36 Respiratory Rate 20 02/16/18 13:36 Blood Pressure 96/76 02/16/18 13:36 O2 Sat by Pulse Oximetry (%) 95 02/16/18 02:00 Constitutional: Yes: Other Cardiovascular: Yes: Regular Rate and Rhythm Respiratory: Yes: Poor Air Entry, Rhonchi, Other (secretions) Gastrointestinal: Yes: Normal Bowel Sounds, Soft, Other (peg in place) Musculoskeletal: Yes: WNL Extremities: Yes: Other Neurological: Yes: Alert, Other Psychiatric: Yes: Alert, Other Labs: CBC, BMP 02/16/18 08:25 02/16/18 08:25 Imaging - Results Chest X-ray: Report Reviewed, Image Reviewed Cat Scan: Report Reviewed, Image Reviewed Assessment/Plan ams lethargy cough fever plan consider keeping pt npo close watch continue current abx await for all the cx to be back rest as per the team
[2018-02-16] MEDS: POLYETHYLENE GLYCOL 3350 119 GM BTL PO SCH ×2 (15:53→23:46)
--- NOTE | 2018-02-16 15:58 | PN ---
Teaching Attending Note Name of Resident: Emile Andrade ATTENDING PHYSICIAN STATEMENT I saw and evaluated the patient. I reviewed the resident's note and discussed the case with the resident. I agree with the resident's findings and plan as documented with exceptions below. SUBJECTIVE: Patient seen and examined. Non verbal, unable to assess for ROS. OBJECTIVE: Vital Signs Period Temp Pulse Resp BP Sys/Linares Pulse Ox Last 24 Hr 97.7 F-101.5 F 80-118 20-24 90-112/41-76 95-95 Intake & Output 02/13/18 02/14/18 02/15/18 02/16/18 23:59 23:59 23:59 23:59 Intake Total 50 Output Total 850 300 Balance -850 -250 Weight 74 lb 12.8 oz 102 lb 102 lb General: lying in bed, no acute distress Chest: poor effort, few coarse rales Abdomen:soft, positive bowel sounds Extremities: contractures Active Medications Acyclovir (Zovirax Oral Suspension -) 400 mg GT BID [facility] Last Admin: 02/16/18 11:29 Dose: 400 mg Al Hydroxide/Mg Hydroxide (Mylanta Oral Suspension -) 20 ml GT BID [facility] Last Admin: 02/16/18 11:19 Dose: 20 ml Albuterol/Ipratropium (Duoneb -) 1 amp NEB RQID [facility] Last Admin: 02/16/18 15:05 Dose: 1 amp Baclofen (Lioresal -) 10 mg GT BID [facility] Last Admin: 02/16/18 11:20 Dose: 10 mg Budesonide/Formoterol Fumarate (Symbicort 160/4.5mcg -) 1 puff IH BID [facility] Last Admin: 02/16/18 11:21 Dose: 1 puff Clobazam (Onfi -) 5 mg GT DAILY [facility] Last Admin: 02/16/18 11:20 Dose: 5 mg Clonazepam (Klonopin -) 1.5 mg GT TID [facility] Last Admin: 02/16/18 05:28 Dose: 1.5 mg Diazepam (Diastat Rectal Gel -) 10 mg RC PRN PRN PRN Reason: SEIZURES Docusate Sodium (Colace Liquid -) 200 mg PO DAILY PRN PRN Reason: CONSTIPATION Enoxaparin Sodium (Lovenox -) 40 mg SQ DAILY [facility] Last Admin: 02/16/18 11:20 Dose: 40 mg Piperacillin Sod/Tazobactam (Sod 3.375 gm/ Dextrose) 50 mls @ 100 mls/hr IVPB Q8H-IV JORGE; Protocol Last Admin: 02/16/18 11:58 Dose: 100 mls/hr Azithromycin (Zithromax 500mg Ivpb (Pre-Docked)) 500 mg in 250 mls @ 250 mls/ hr IVPB DAILY JORGE Last Admin: 02/16/18 12:44 Dose: 250 mls/hr Sodium Chloride (Normal Saline -) 1,000 mls @ 100 mls/hr IV ASDIR JORGE Last Admin: 02/16/18 11:22 Dose: 100 mls/hr Ketorolac Tromethamine (Toradol Injection -) 15 mg IVPUSH Q6H PRN PRN Reason: PAIN LEVEL 4 - 6 Stop: 02/21/18 10:53 Last Admin: 02/16/18 11:15 Dose: 15 mg Lactobacillus Acidophilus (Bacid -) 1 tab GT HS [facility] Last Admin: 02/15/18 22:50 Dose: 1 tab Lamotrigine (Lamictal -) 200 mg GT BID [facility] Last Admin: 02/16/18 11:57 Dose: 200 mg Non-Formulary Medication (Fluticasone Propionate [Flovent Diskus]) 50 mcg IH DAILY [facility] Last Admin: 02/15/18 16:05 Dose: Not Given Phenobarbital (Phenobarbital -) 45 mg GT BID [facility] Last Admin: 02/16/18 11:28 Dose: 45 mg Polyethylene Glycol (Miralax (For Daily Use) -) 17 gm PO BID [facility] Ranitidine HCl (Zantac Oral Solution -) 75 mg GT BID [facility] Last Admin: 02/16/18 11:19 Dose: 75 mg Laboratory Results - last 24 hr 02/16/18 02/16/18 08:25 08:25 WBC 9.5 RBC 3.96 L Hgb 13.3 Hct 39.2 MCV 99.1 H MCH 33.7 MCHC 34.0 RDW 15.8 Plt Count 83 L D MPV 9.9 D Absolute Neuts (auto) 8.3 H Neutrophils % 86.8 H Lymphocytes % 6.7 L D Monocytes % 5.7 D Eosinophils % 0.7 Basophils % 0.1 Nucleated RBC % 0 Platelet Comment No clumping noted Sodium 138 Potassium 4.6 Chloride 105 Carbon Dioxide 27 Anion Gap 7 L BUN 15 Creatinine 0.8 Creat Clearance w eGFR > 60 Random Glucose 82 Calcium 9.6 Phosphorus 3.2 Magnesium 2.0 Total Bilirubin 0.5 AST 107 H ALT 125 H Alkaline Phosphatase 385 H Total Protein 8.5 H Albumin 3.2 L ASSESSMENT AND PLAN: 22yo M with PMH MR, CP, herpetic mengioencephalitis and asthma presented to the ER with hypoxia and hypotensive after seizure episode. as per Aid yesterday he has been more lethargic for the past 2 weeks -Sepsis with multifocal PNA, suspect aspiration -Acute toxic metabolic encephalopathy,likely from above -Transaminitis, known from prior -Seizure -Acute hypoxic respiratory distress -Hematuria -Cerebral palsy -Asthma Plan: Zosyn day 2, ID input noted. Blood cx Check flu swab/PNA studies. Start IVF. TUbe feeds as juan francisco, hold if concerns for increased residual, worsening respiratory status or ongoing fevers. Trend LFTs, elevated from prior. Neurology input noted, Follow up levels. DVTPPX lovenox Dispo pending clinical improvement. Plan discussed with aide at bedside.
[2018-02-16] MEDS ORDERED: DEXTROSE 5%-NORMAL SALINE 1,000 ML IV SCH (16:45)
[2018-02-16] MEDS: DEXTROSE 5%-NORMAL SALINE 1,000 ML IV SCH (23:44)
[2018-02-16] MEDS: LACTOBACILLUS ACIDOPHILUS 1 TABLET GT SCH (23:46)
[2018-02-17] MEDS ORDERED: DEXTROSE 5%-WATER - 50 ML IVPB ONE ×3 (01:12→18:10)
[2018-02-17] MEDS ORDERED: PIPERACILLIN/TAZOBACTAM 3.375 GM VIAL IVPB ONE ×3 (01:12→18:10)
[2018-02-17] MEDS: PIPERACILLIN/TAZOB 3.375 GM 3.375 GM in DEXTROSE 5%-WATER - 50 ML IVPB SCH ×3 (01:58→18:37)
[2018-02-17] MEDS: DEXTROSE 5%-NORMAL SALINE 1,000 ML IV SCH ×2 (04:46→18:37)
[2018-02-17] MEDS: clonazePAM 0.5 MG TABLET GT SCH ×3 (06:16→23:22)
[2018-02-17] MEDS: ALBUTEROL SO4 2.5/IPRATROPIUM 0.5 INH SOL 3 ML VIAL.NEB. NEB SCH ×4 (07:27→20:02)
[2018-02-17 09:38] LABS: BASO % 0.2 % (0-2.0); EOS % 2.1 % (0-4.5); HEMATOCRIT 31.3 % (35.4-49); HEMOGLOBIN 10.6 GM/dL (11.7-16.9); LYMPH % 25.9 % (8-40); MCH 33.3 pg (25.7-33.7); MCHC 33.9 g/dl (32.0-35.9); MEAN CELL VOLUME 98.4 fl (80-96); MEAN PLT VOLUME 9.5 fl (7.5-11.1); MONO % 7.6 % (3.8-10.2); NEUT % 64.2 % (42.8-82.8); PLATELET COUNT 87 K/MM3 (134-434); RBC 3.18 M/mm3 (4.00-5.60); WHITE BLOOD COUNT 5.9 K/mm3 (4.0-10.0)
[2018-02-17 09:55] LABS: ANION GAP 6 MMOL/L (8-16); BLOOD UREA NITROGEN 12 mg/dL (7-18); CALCIUM 8.4 mg/dL (8.5-10.1); CHLORIDE 107 mmol/L (98-107); CO2 27 mmol/L (21-32); CREATININE 0.6 mg/dL (0.55-1.3); GLUCOSE,RANDOM 91 mg/dL (74-106); MAGNESIUM 2.1 mg/dL (1.8-2.4); PHOSPHOROUS 4.2 mg/dL (2.5-4.9); POTASSIUM 3.6 mmol/L (3.5-5.1); SODIUM 140 mmol/L (136-145)
[2018-02-17] MEDS: cloBAZam 10 MG TABLET GT SCH (12:40)
[2018-02-17] MEDS: PHENobarbital 30 MG TABLET GT SCH ×2 (12:42→23:20)
[2018-02-17] MEDS: BACLOFEN 10 MG TABLET (FP) GT SCH ×2 (12:43→23:20)
[2018-02-17] MEDS: RANITIDINE HCL 150 MG/10 ML UNIT-DOSE GT SCH ×2 (12:44→23:23)
[2018-02-17] MEDS: ENOXAPARIN NA (PORCINE) 40 MG/0.4 ML DISP.SYRIN SQ SCH (12:44)
[2018-02-17] MEDS: ACYCLOVIR 200 MG/5 ML LIQUID GT SCH ×2 (12:44→23:22)
[2018-02-17] MEDS: MAG HYDROX/AL HYDROX/SIMETH 30 ML UNIT-DOSE CUP GT SCH ×2 (12:44→23:23)
[2018-02-17] MEDS: MULTIVIT-MINERALS ORAL LIQUID GT SCH (12:45)
[2018-02-17] MEDS: lamoTRIgine 100 MG TABLET (FP) GT SCH ×2 (12:46→23:22)
[2018-02-17] MEDS: POLYETHYLENE GLYCOL 3350 119 GM BTL PO SCH ×2 (12:46→23:22)
--- NOTE | 2018-02-17 14:37 | PN ---
Physical Exam: SUBJECTIVE: Patient seen and examined this AM. This morning he seems more comfortable and is smiling and interacting some. OBJECTIVE: Vital Signs Period Temp Pulse Resp BP Sys/Linares Pulse Ox Last 24 Hr 98.2 F-99.7 F 62-99 20-24 91-109/37-63 95-96 GENERAL: Nonverbal, awake but not alert, no acute distress, smiling today HEAD: Microocephalic, atraumatic. EYES: PERRL, no scleral icterus EARS, NOSE, THROAT: oropharynx clear without exudates. Moist mucous membranes. LUNGS: Poor inspiratory effort, rhonchi with minimal improvement HEART: Regular rate and rhythm, normal S1 and S2 without murmur ABDOMEN: Soft, nontender to palpation, normoactive bowel sounds MUSCULOSKELETAL: Contracted extremities NEUROLOGICAL: Nonverbal, unable to interact or follow commands Laboratory Results - last 24 hr 02/15/18 02/16/18 02/16/18 13:50 08:25 18:16 WBC RBC Hgb Hct MCV MCH MCHC RDW Plt Count MPV Absolute Neuts (auto) Neutrophils % Lymphocytes % Monocytes % Eosinophils % Basophils % Nucleated RBC % Sodium Potassium Chloride Carbon Dioxide Anion Gap BUN Creatinine Creat Clearance w eGFR POC Glucometer 98 Random Glucose Calcium Phosphorus Magnesium Prolactin 31.1 H Lamotrigine 4.4 02/17/18 02/17/18 02/17/18 04:48 09:30 09:30 WBC 5.9 RBC 3.18 L Hgb 10.6 L Hct 31.3 L D MCV 98.4 H MCH 33.3 MCHC 33.9 RDW 16.0 H Plt Count 87 L MPV 9.5 Absolute Neuts (auto) 3.8 Neutrophils % 64.2 D Lymphocytes % 25.9 D Monocytes % 7.6 Eosinophils % 2.1 D Basophils % 0.2 Nucleated RBC % 0 Sodium 140 Potassium 3.6 Chloride 107 Carbon Dioxide 27 Anion Gap 6 L BUN 12 Creatinine 0.6 Creat Clearance w eGFR > 60 POC Glucometer 95 Random Glucose 91 Calcium 8.4 L Phosphorus 4.2 Magnesium 2.1 Prolactin Lamotrigine Active Medications Generic Name Dose Route Start Last Admin Trade Name Freq PRN Reason Stop Dose Admin Acyclovir 400 mg 02/15/18 10:00 02/17/18 12:44 Zovirax Oral Suspension - GT 400 mg BID JORGE Administration Al Hydroxide/Mg Hydroxide 20 ml 10/08/18 10:00 02/17/18 12:44 Mylanta Oral Suspension - GT 20 ml BID JORGE Administration Albuterol/Ipratropium 1 amp 02/15/18 08:00 02/17/18 13:00 Duoneb - NEB 1 amp RQID JORGE Administration Baclofen 10 mg 02/15/18 10:00 02/17/18 12:43 Lioresal - GT 10 mg BID JORGE Administration Budesonide/Formoterol Fumarate 1 puff 02/15/18 10:00 02/16/18 23:46 Symbicort 160/4.5mcg - IH 1 puff BID JORGE Administration Clobazam 5 mg 02/15/18 10:00 02/17/18 12:40 Onfi - GT 5 mg DAILY JORGE Administration Clonazepam 1.5 mg 02/15/18 06:00 02/17/18 06:16 Klonopin - GT 1.5 mg TID JORGE Administration Diazepam 10 mg 02/15/18 04:22 Diastat Rectal Gel - RC PRN PRN SEIZURES Docusate Sodium 200 mg 02/16/18 10:57 Colace Liquid - PO DAILY PRN CONSTIPATION Enoxaparin Sodium 40 mg 02/15/18 10:00 02/17/18 12:44 Lovenox - SQ 40 mg DAILY JORGE Administration Piperacillin Sod/Tazobactam 50 mls @ 100 mls/hr 02/15/18 18:00 02/17/18 01:58 Sod 3.375 gm/ Dextrose IVPB 100 mls/hr Q8H-IV JORGE Administration Protocol Azithromycin 500 mg in 250 mls @ 250 mls/hr 02/16/18 11:30 02/16/18 12:44 Zithromax 500mg Ivpb (Pre-Docked) IVPB 250 mls/hr DAILY JORGE Administration Dextrose/Sodium Chloride 1,000 mls @ 125 mls/hr 02/16/18 17:57 02/17/18 04:46 D5-Ns - IV 125 mls/hr ASDIR JORGE Administration Ketorolac Tromethamine 15 mg 02/16/18 10:54 02/16/18 11:15 Toradol Injection - IVPUSH 02/21/18 10:53 15 mg Q6H PRN Administration PAIN LEVEL 4 - 6 Lactobacillus Acidophilus 1 tab 02/15/18 22:00 02/16/18 23:46 Bacid - GT 1 tab HS JORGE Administration Lamotrigine 200 mg 02/15/18 10:00 02/17/18 12:46 Lamictal - GT 200 mg BID JORGE Administration Non-Formulary Medication 50 mcg 02/15/18 10:00 02/15/18 16:05 Fluticasone Propionate [Flovent Diskus] IH Not Given DAILY JORGE Phenobarbital 45 mg 02/15/18 10:00 02/17/18 12:42 Phenobarbital - GT 45 mg BID JORGE Administration Polyethylene Glycol 17 gm 02/16/18 11:00 02/17/18 12:46 Miralax (For Daily Use) - PO 17 gm BID JORGE Administration Ranitidine HCl 75 mg 02/15/18 10:00 02/17/18 12:44 Zantac Oral Solution - GT 75 mg BID JORGE Administration ASSESSMENT/PLAN: 22 yo Male with PMH of severe MR, cerebral palsy, herpetic meningoencephalitis, and asthma who was sent from [place] for AMS. Change in Mental Status -Possibly due to seizure activity, though likely due to Healthcare Acquired Pneumonia -CXR noted with worsening white out of lung on the left -CT chest: Consolidation with air bronchogram in both lower lobes as well as extensive airspace disease in left upper lobe and patchy airspace disease in RUL consistent with pneumonia -Pt received Zosyn on recent admission for pneumonia -Zosyn 3.375 gm Q8, Azithromycin 500 mg IV Daily -ID consulted, continue current management -Hold tube feeds -Neurology consulted as well due to concern for seizure like activity - facial twitching Hx of Seizures -Neurology consulted - will await recommendations -Prolactin 31.1 -Resume home medications, Phenobartibol 45 mg GT BID, level 4.4 on admission -Lamictal 200 gm GT BID, level pending -Diazepam Rectal gel 10 mg RC PRN for active seizure -Clonazepam 1.5 mg GT TID -Clobazam 5 mg GT QD -Baclofen 10 mg GT BID -Seizure precautions -No need for MRI Hypoglycemia -D5 NS @ 125 cc/hr -BGMs Q6, notify if > 200 Thrombocytopenia -Likely secondary to sepsis/infection -Splenic US ordered Transaminitis -Pt commonly with transaminitis on admission -RUQ ultrasound reveals fatty liver with otherwise limited exam -Trend LFTs Asthma -Continue home meds -Duonebs Q6 -Symbicort BID -Flovent Daily Hx Herpetic Meningoencephalitis -Continue home Acyclovir 400 mg GT BID GERD -Zantac 150 mg GT BID DVT Prophylaxis -Lovenox 40 mg SQ Daily FEN -Fluids: D5 NS @125 cc/hr -Electrolytes: No electrolyte abnormalities, BMP in AM -Nutrition: Hold Tube Feeds Disposition Med/Surg Visit type - Emergency Visit Emergency Visit: Yes ED Registration Date: 02/16/18 Care time: The patient presented to the Emergency Department on the above date and was hospitalized for further evaluation of their emergent condition. - New Patient This patient is new to me today: No - Critical Care Critical Care patient: No
[2018-02-17 15:04] LABS: ALBUMIN 2.7 g/dl (3.4-5.0); ALK PHOS 294 U/L (45-117); BILIRUBIN,DIRECT 0.1 mg/dL (0.0-0.2); BILIRUBIN,TOTAL 0.2 mg/dL (0.2-1); SGOT/AST 98 U/L (15-37); SGPT/ALT 96 U/L (13-61); TOT PROT 6.9 g/dl (6.4-8.2)
[2018-02-17] MEDS: BUDESONIDE/FORMETEROL FUMARATE 160/4.5 mcg INHALER IH SCH ×2 (15:53→23:23)
--- NOTE | 2018-02-17 15:53 | PN ---
Teaching Attending Note Name of Resident: Emile Andrade ATTENDING PHYSICIAN STATEMENT I saw and evaluated the patient. I reviewed the resident's note and discussed the case with the resident. I agree with the resident's findings and plan as documented with exceptions below. SUBJECTIVE: Patient seen and examined, non verbal,unable to do ROS. OBJECTIVE: Vital Signs Period Temp Pulse Resp BP Sys/Linares Pulse Ox Last 24 Hr 97.8 F-99.7 F 62-99 20-24 91-109/37-63 95-96 Intake & Output 02/14/18 02/15/18 02/16/18 02/17/18 23:59 23:59 23:59 23:59 Intake Total 50 500 Output Total 850 600 350 Balance -850 -550 150 Weight 74 lb 12.8 oz 102 lb 102 lb General: lying in bed, comfortable, no tachypnea Chest: improved rales and air entry Abdomen: soft, obese, NT Extremities: contractures Active Medications Acyclovir (Zovirax Oral Suspension -) 400 mg GT BID [facility] Last Admin: 02/17/18 12:44 Dose: 400 mg Al Hydroxide/Mg Hydroxide (Mylanta Oral Suspension -) 20 ml GT BID [facility] Last Admin: 02/17/18 12:44 Dose: 20 ml Albuterol/Ipratropium (Duoneb -) 1 amp NEB RQID [facility] Last Admin: 02/17/18 13:00 Dose: 1 amp Baclofen (Lioresal -) 10 mg GT BID [facility] Last Admin: 02/17/18 12:43 Dose: 10 mg Budesonide/Formoterol Fumarate (Symbicort 160/4.5mcg -) 1 puff IH BID [facility] Last Admin: 02/16/18 23:46 Dose: 1 puff Clobazam (Onfi -) 5 mg GT DAILY [facility] Last Admin: 02/17/18 12:40 Dose: 5 mg Clonazepam (Klonopin -) 1.5 mg GT TID [facility] Last Admin: 02/17/18 06:16 Dose: 1.5 mg Diazepam (Diastat Rectal Gel -) 10 mg RC PRN PRN PRN Reason: SEIZURES Docusate Sodium (Colace Liquid -) 200 mg PO DAILY PRN PRN Reason: CONSTIPATION Enoxaparin Sodium (Lovenox -) 40 mg SQ DAILY [facility] Last Admin: 02/17/18 12:44 Dose: 40 mg Piperacillin Sod/Tazobactam (Sod 3.375 gm/ Dextrose) 50 mls @ 100 mls/hr IVPB Q8H-IV [facility]OR[facility]; Protocol Last Admin: 02/17/18 01:58 Dose: 100 mls/hr Azithromycin (Zithromax 500mg Ivpb (Pre-Docked)) 500 mg in 250 mls @ 250 mls/ hr IVPB DAILY [facility] Last Admin: 02/16/18 12:44 Dose: 250 mls/hr Dextrose/Sodium Chloride (D5-Ns -) 1,000 mls @ 125 mls/hr IV ASDIR [facility] Last Admin: 02/17/18 04:46 Dose: 125 mls/hr Ketorolac Tromethamine (Toradol Injection -) 15 mg IVPUSH Q6H PRN PRN Reason: PAIN LEVEL 4 - 6 Stop: 02/21/18 10:53 Last Admin: 02/16/18 11:15 Dose: 15 mg Lactobacillus Acidophilus (Bacid -) 1 tab GT HS [facility] Last Admin: 02/16/18 23:46 Dose: 1 tab Lamotrigine (Lamictal -) 200 mg GT BID [facility] Last Admin: 02/17/18 12:46 Dose: 200 mg Non-Formulary Medication (Fluticasone Propionate [Flovent Diskus]) 50 mcg IH DAILY [facility] Last Admin: 02/15/18 16:05 Dose: Not Given Phenobarbital (Phenobarbital -) 45 mg GT BID [facility] Last Admin: 02/17/18 12:42 Dose: 45 mg Polyethylene Glycol (Miralax (For Daily Use) -) 17 gm PO BID [facility] Last Admin: 02/17/18 12:46 Dose: 17 gm Ranitidine HCl (Zantac Oral Solution -) 75 mg GT BID [facility] Last Admin: 02/17/18 12:44 Dose: 75 mg Laboratory Results - last 24 hr 02/15/18 02/16/18 02/16/18 13:50 08:25 18:16 WBC RBC Hgb Hct MCV MCH MCHC RDW Plt Count MPV Absolute Neuts (auto) Neutrophils % Lymphocytes % Monocytes % Eosinophils % Basophils % Nucleated RBC % Sodium Potassium Chloride Carbon Dioxide Anion Gap BUN Creatinine Creat Clearance w eGFR POC Glucometer 98 Random Glucose Calcium Phosphorus Magnesium Total Bilirubin Direct Bilirubin AST ALT Alkaline Phosphatase Total Protein Albumin Prolactin 31.1 H Lamotrigine 4.4 02/17/18 02/17/18 02/17/18 04:48 09:30 09:30 WBC 5.9 RBC 3.18 L Hgb 10.6 L Hct 31.3 L D MCV 98.4 H MCH 33.3 MCHC 33.9 RDW 16.0 H Plt Count 87 L MPV 9.5 Absolute Neuts (auto) 3.8 Neutrophils % 64.2 D Lymphocytes % 25.9 D Monocytes % 7.6 Eosinophils % 2.1 D Basophils % 0.2 Nucleated RBC % 0 Sodium 140 Potassium 3.6 Chloride 107 Carbon Dioxide 27 Anion Gap 6 L BUN 12 Creatinine 0.6 Creat Clearance w eGFR > 60 POC Glucometer 95 Random Glucose 91 Calcium 8.4 L Phosphorus 4.2 Magnesium 2.1 Total Bilirubin 0.2 Direct Bilirubin 0.1 AST 98 H ALT 96 H Alkaline Phosphatase 294 H Total Protein 6.9 Albumin 2.7 L Prolactin Lamotrigine Microbiology 02/16/18 10:10 Sputum - Expectorated Gram Stain - Final 02/16/18 16:30 Urine For Antigen Detection Legionella Antigen - Final 02/16/18 16:30 Urine For Antigen Detection Streptococcus pneumoniae Antigen (M - Final 02/16/18 11:40 Blood - Peripheral Venous Blood Culture - Preliminary NO GROWTH OBTAINED AFTER 24 HOURS, INCUBATION TO CONTINUE FOR 4 DAYS. 02/16/18 11:20 Blood - Peripheral Venous Blood Culture - Preliminary NO GROWTH OBTAINED AFTER 24 HOURS, INCUBATION TO CONTINUE FOR 4 DAYS. 02/16/18 16:45 Nasopharyngeal Swab Influenza Types A,B Antigen - Final 02/16/18 16:45 Nasopharyngeal Swab - Final ASSESSMENT AND PLAN: 22yo M with PMH MR, CP, herpetic mengioencephalitis and asthma presented to the ER with hypoxia and hypotensive after seizure episode. as per Aid yesterday he has been more lethargic for the past 2 weeks -Sepsis with multifocal PNA, suspect aspiration -Acute toxic metabolic encephalopathy,likely from above -Transaminitis, known from prior -Acute thrombocytopenia, likely from sepsis -Seizure -Acute hypoxic respiratory distress -Hematuria -Cerebral palsy -Asthma Plan: Zosyn day 3, d/c azithromycin, ID input noted. Blood cx Flu swab/PNA studies neg. IVF. CLinically improved, resume tube feeds as tolerated resume tube feeds at 20 cc/hr for tonight, discussed with nursing. Will titrate to goal tomorrow if no concerns. Platelets/LFTs improved. Spleen US. Trend for now. Neurology input noted, Lamictal levels noted. DVTPPX lovenox Dispo pending clinical improvement. Plan discussed with nursing at bedside, all questions answered.
[2018-02-17] MEDS: AZITHROMYCIN IVPB 500 MG/250 ML BAG IVPB SCH (15:55)
--- NOTE | 2018-02-17 16:02 | PN ---
Progress Note, Physician History of Present Illness: spiking fevers improving breathing slightly better - Current Medication List Current Medications: Active Medications Acyclovir (Zovirax Oral Suspension -) 400 mg GT BID [facility] Last Admin: 02/17/18 12:44 Dose: 400 mg Al Hydroxide/Mg Hydroxide (Mylanta Oral Suspension -) 20 ml GT BID [facility] Last Admin: 02/17/18 12:44 Dose: 20 ml Albuterol/Ipratropium (Duoneb -) 1 amp NEB RQID [facility] Last Admin: 02/17/18 13:00 Dose: 1 amp Baclofen (Lioresal -) 10 mg GT BID [facility] Last Admin: 02/17/18 12:43 Dose: 10 mg Budesonide/Formoterol Fumarate (Symbicort 160/4.5mcg -) 1 puff IH BID [facility] Last Admin: 02/17/18 15:53 Dose: 1 puff Clobazam (Onfi -) 5 mg GT DAILY [facility] Last Admin: 02/17/18 12:40 Dose: 5 mg Clonazepam (Klonopin -) 1.5 mg GT TID [facility] Last Admin: 02/17/18 15:51 Dose: 1.5 mg Diazepam (Diastat Rectal Gel -) 10 mg RC PRN PRN PRN Reason: SEIZURES Docusate Sodium (Colace Liquid -) 200 mg PO DAILY PRN PRN Reason: CONSTIPATION Enoxaparin Sodium (Lovenox -) 40 mg SQ DAILY [facility] Last Admin: 02/17/18 12:44 Dose: 40 mg Piperacillin Sod/Tazobactam (Sod 3.375 gm/ Dextrose) 50 mls @ 100 mls/hr IVPB Q8H-IV JOR[facility]; Protocol Last Admin: 02/17/18 15:49 Dose: Not Given Dextrose/Sodium Chloride (D5-Ns -) 1,000 mls @ 125 mls/hr IV ASDIR [facility] Last Admin: 02/17/18 04:46 Dose: 125 mls/hr Ketorolac Tromethamine (Toradol Injection -) 15 mg IVPUSH Q6H PRN PRN Reason: PAIN LEVEL 4 - 6 Stop: 02/21/18 10:53 Last Admin: 02/16/18 11:15 Dose: 15 mg Lactobacillus Acidophilus (Bacid -) 1 tab GT HS [facility] Last Admin: 02/16/18 23:46 Dose: 1 tab Lamotrigine (Lamictal -) 200 mg GT BID [facility] Last Admin: 02/17/18 12:46 Dose: 200 mg Non-Formulary Medication (Fluticasone Propionate [Flovent Diskus]) 50 mcg IH DAILY [facility] Last Admin: 02/15/18 16:05 Dose: Not Given Phenobarbital (Phenobarbital -) 45 mg GT BID [facility] Last Admin: 02/17/18 12:42 Dose: 45 mg Polyethylene Glycol (Miralax (For Daily Use) -) 17 gm PO BID [facility] Last Admin: 02/17/18 12:46 Dose: 17 gm Ranitidine HCl (Zantac Oral Solution -) 75 mg GT BID [facility] Last Admin: 02/17/18 12:44 Dose: 75 mg - Objective Vital Signs: Vital Signs Temperature 97.8 F 02/17/18 15:30 Pulse Rate 86 02/17/18 15:30 Respiratory Rate 20 02/17/18 15:30 Blood Pressure 103/56 L 02/17/18 15:30 O2 Sat by Pulse Oximetry (%) 96 02/16/18 22:00 Constitutional: Yes: Mild Distress, Other HENT: Yes: Atraumatic, Normocephalic Neck: Yes: Supple, Trachea Midline Cardiovascular: Yes: Regular Rate and Rhythm Respiratory: Yes: On Venti-Mask, Poor Air Entry, Rhonchi Gastrointestinal: Yes: Normal Bowel Sounds, Soft Extremities: Yes: Other Neurological: Yes: Other Labs: CBC, BMP 02/17/18 09:30 02/17/18 09:30 INR, PTT INR 1.12 (0.83-1.09) H 02/14/18 18:45 Assessment/Plan ams lethargy cough fever plan continue abx npo resp support monitor for fevers suctioning asp precautions
[2018-02-17] MEDS: LACTOBACILLUS ACIDOPHILUS 1 TABLET GT SCH (23:21)
[2018-02-18] MEDS ORDERED: PIPERACILLIN/TAZOBACTAM 3.375 GM VIAL IVPB ONE ×3 (02:55→17:46)
[2018-02-18] MEDS ORDERED: DEXTROSE 5%-WATER - 50 ML IVPB ONE ×3 (02:55→17:46)
[2018-02-18] MEDS: PIPERACILLIN/TAZOB 3.375 GM 3.375 GM in DEXTROSE 5%-WATER - 50 ML IVPB SCH ×2 (03:14→10:29)
[2018-02-18 03:32] LABS: HEMATOCRIT 30.5 % (35.4-49); HEMOGLOBIN 10.5 GM/dL (11.7-16.9); MCH 34.2 pg (25.7-33.7); MCHC 34.5 g/dl (32.0-35.9); MEAN CELL VOLUME 99.2 fl (80-96); MEAN PLT VOLUME 9.8 fl (7.5-11.1); PLATELET COUNT 122 K/MM3 (134-434); RBC 3.07 M/mm3 (4.00-5.60); WHITE BLOOD COUNT 5.7 K/mm3 (4.0-10.0)
[2018-02-18] MEDS: clonazePAM 0.5 MG TABLET GT SCH ×3 (05:44→21:17)
[2018-02-18 07:10] LABS: BASO % 0.2 % (0-2.0); EOS % 3.4 % (0-4.5); HEMATOCRIT 30.2 % (35.4-49); HEMOGLOBIN 10.2 GM/dL (11.7-16.9); LYMPH % 31.8 % (8-40); MCH 33.4 pg (25.7-33.7); MCHC 33.7 g/dl (32.0-35.9); MEAN CELL VOLUME 99.3 fl (80-96); MEAN PLT VOLUME 9.6 fl (7.5-11.1); MONO % 10.1 % (3.8-10.2); NEUT % 54.5 % (42.8-82.8); PLATELET COUNT 120 K/MM3 (134-434); RBC 3.04 M/mm3 (4.00-5.60); RDW 15.7 % (11.9-15.9); WHITE BLOOD COUNT 5.3 K/mm3 (4.0-10.0)
[2018-02-18] MEDS: ALBUTEROL SO4 2.5/IPRATROPIUM 0.5 INH SOL 3 ML VIAL.NEB. NEB SCH ×4 (07:25→19:28)
[2018-02-18 07:41] LABS: ALBUMIN 2.6 g/dl (3.4-5.0); ALK PHOS 267 U/L (45-117); ANION GAP 5 MMOL/L (8-16); BILIRUBIN,TOTAL 0.3 mg/dL (0.2-1); BLOOD UREA NITROGEN 8 mg/dL (7-18); CALCIUM 8.3 mg/dL (8.5-10.1); CHLORIDE 107 mmol/L (98-107); CO2 31 mmol/L (21-32); CREATININE 0.7 mg/dL (0.55-1.3); GLUCOSE,RANDOM 92 mg/dL (74-106); MAGNESIUM 2.2 mg/dL (1.8-2.4); POTASSIUM 3.5 mmol/L (3.5-5.1); SGOT/AST 87 U/L (15-37); SGPT/ALT 84 U/L (13-61); SODIUM 142 mmol/L (136-145); TOT PROT 6.9 g/dl (6.4-8.2)
--- NOTE | 2018-02-18 08:26 | PN ---
Teaching Attending Note Name of Resident: Emile Andrade ATTENDING PHYSICIAN STATEMENT I saw and evaluated the patient. I reviewed the resident's note and discussed the case with the resident. I agree with the resident's findings and plan as documented with exceptions below. SUBJECTIVE: Patient seen and examined. non verbal, unable to do ROS. OBJECTIVE: Vital Signs Period Temp Pulse Resp BP Sys/Linares Pulse Ox Last 24 Hr 97.7 F-98.9 F 64-98 16-20 90-144/45-82 96-96 Intake & Output 02/15/18 02/16/18 02/17/18 02/18/18 23:59 23:59 23:59 23:59 Intake Total 50 1000 875 Output Total 850 600 550 300 Balance -850 -550 450 575 Weight 102 lb 102 lb General: lying in bed, breathing comfortably Chest: poor effort, improved rales Abdomen: soft, NT Extremities: contractures Active Medications Acyclovir (Zovirax Oral Suspension -) 400 mg GT BID [facility] Last Admin: 02/17/18 23:22 Dose: 400 mg Al Hydroxide/Mg Hydroxide (Mylanta Oral Suspension -) 20 ml GT BID [facility] Last Admin: 02/17/18 23:23 Dose: 20 ml Albuterol/Ipratropium (Duoneb -) 1 amp NEB RQID [facility] Last Admin: 02/18/18 07:25 Dose: 1 amp Baclofen (Lioresal -) 10 mg GT BID [facility] Last Admin: 02/17/18 23:20 Dose: 10 mg Budesonide/Formoterol Fumarate (Symbicort 160/4.5mcg -) 1 puff IH BID [facility] Last Admin: 02/17/18 23:23 Dose: 1 puff Clobazam (Onfi -) 5 mg GT DAILY [facility] Last Admin: 02/17/18 12:40 Dose: 5 mg Clonazepam (Klonopin -) 1.5 mg GT TID [facility] Last Admin: 02/18/18 05:44 Dose: 1.5 mg Diazepam (Diastat Rectal Gel -) 10 mg RC PRN PRN PRN Reason: SEIZURES Docusate Sodium (Colace Liquid -) 200 mg PO DAILY PRN PRN Reason: CONSTIPATION Last Admin: 02/17/18 23:22 Dose: 200 mg Piperacillin Sod/Tazobactam (Sod 3.375 gm/ Dextrose) 50 mls @ 100 mls/hr IVPB Q8H-IV JOR[facility]; Protocol Last Admin: 02/18/18 03:14 Dose: 100 mls/hr Dextrose/Sodium Chloride (D5-Ns -) 1,000 mls @ 125 mls/hr IV ASDIR [facility] Last Admin: 02/17/18 18:37 Dose: Not Given Lactobacillus Acidophilus (Bacid -) 1 tab GT HS [facility] Last Admin: 02/17/18 23:21 Dose: 1 tab Lamotrigine (Lamictal -) 200 mg GT BID [facility] Last Admin: 02/17/18 23:22 Dose: 200 mg Phenobarbital (Phenobarbital -) 45 mg GT BID [facility] Last Admin: 02/17/18 23:20 Dose: 45 mg Polyethylene Glycol (Miralax (For Daily Use) -) 17 gm PO BID [facility] Last Admin: 02/17/18 23:22 Dose: 17 gm Ranitidine HCl (Zantac Oral Solution -) 75 mg GT BID [facility] Last Admin: 02/17/18 23:23 Dose: 75 mg Laboratory Results - last 24 hr 02/15/18 02/17/18 02/17/18 13:50 09:30 09:30 WBC 5.9 RBC 3.18 L Hgb 10.6 L Hct 31.3 L D MCV 98.4 H MCH 33.3 MCHC 33.9 RDW 16.0 H Plt Count 87 L MPV 9.5 Absolute Neuts (auto) 3.8 Neutrophils % 64.2 D Lymphocytes % 25.9 D Monocytes % 7.6 Eosinophils % 2.1 D Basophils % 0.2 Nucleated RBC % 0 Sodium 140 Potassium 3.6 Chloride 107 Carbon Dioxide 27 Anion Gap 6 L BUN 12 Creatinine 0.6 Creat Clearance w eGFR > 60 POC Glucometer Random Glucose 91 Calcium 8.4 L Phosphorus 4.2 Magnesium 2.1 Total Bilirubin 0.2 Direct Bilirubin 0.1 AST 98 H ALT 96 H Alkaline Phosphatase 294 H Total Protein 6.9 Albumin 2.7 L Stool Occult Blood Lamotrigine 4.4 Blood Type Antibody Screen 02/18/18 02/18/18 02/18/18 01:25 02:55 02:55 WBC 5.7 RBC 3.07 L Hgb 10.5 L Hct 30.5 L MCV 99.2 H MCH 34.2 H MCHC 34.5 RDW 16.0 H Plt Count 122 L D MPV 9.8 Absolute Neuts (auto) Neutrophils % Lymphocytes % Monocytes % Eosinophils % Basophils % Nucleated RBC % Sodium Potassium Chloride Carbon Dioxide Anion Gap BUN Creatinine Creat Clearance w eGFR POC Glucometer Random Glucose Calcium Phosphorus Magnesium Total Bilirubin Direct Bilirubin AST ALT Alkaline Phosphatase Total Protein Albumin Stool Occult Blood Positive Lamotrigine Blood Type O POSITIVE Antibody Screen Negative 02/18/18 02/18/18 02/18/18 05:47 06:24 06:24 WBC 5.3 RBC 3.04 L Hgb 10.2 L Hct 30.2 L MCV 99.3 H MCH 33.4 MCHC 33.7 RDW 15.7 Plt Count 120 L MPV 9.6 Absolute Neuts (auto) 2.9 Neutrophils % 54.5 Lymphocytes % 31.8 D Monocytes % 10.1 Eosinophils % 3.4 Basophils % 0.2 Nucleated RBC % 0 Sodium 142 Potassium 3.5 Chloride 107 Carbon Dioxide 31 Anion Gap 5 L BUN 8 Creatinine 0.7 Creat Clearance w eGFR > 60 POC Glucometer 94 Random Glucose 92 Calcium 8.3 L Phosphorus 4.0 Magnesium 2.2 Total Bilirubin 0.3 Direct Bilirubin AST 87 H ALT 84 H Alkaline Phosphatase 267 H Total Protein 6.9 Albumin 2.6 L Stool Occult Blood Lamotrigine Blood Type Antibody Screen Microbiology 02/16/18 10:10 Sputum - Expectorated Gram Stain - Final 02/16/18 16:30 Urine For Antigen Detection Legionella Antigen - Final 02/16/18 16:30 Urine For Antigen Detection Streptococcus pneumoniae Antigen (M - Final 02/16/18 11:40 Blood - Peripheral Venous Blood Culture - Preliminary NO GROWTH OBTAINED AFTER 24 HOURS, INCUBATION TO CONTINUE FOR 4 DAYS. 02/16/18 11:20 Blood - Peripheral Venous Blood Culture - Preliminary NO GROWTH OBTAINED AFTER 24 HOURS, INCUBATION TO CONTINUE FOR 4 DAYS. 02/16/18 16:45 Nasopharyngeal Swab Influenza Types A,B Antigen - Final 02/16/18 16:45 Nasopharyngeal Swab - Final ASSESSMENT AND PLAN: 22yo M with PMH MR, CP, herpetic mengioencephalitis and asthma presented to the ER with hypoxia and hypotensive after seizure episode. as per Aid yesterday he has been more lethargic for the past 2 weeks -Sepsis with multifocal PNA, suspect aspiration -Acute toxic metabolic encephalopathy,likely from above -Hematochezia, ?diverticular vs haemorrhoidal, less likely upper GI -Transaminitis, known from prior -Acute thrombocytopenia, likely from sepsis -Seizure -Acute hypoxic respiratory distress -Hematuria -Cerebral palsy -Asthma Plan: Overnight events noted, h/h stable. Trend CBC, monitor for new events, GI input appreciated Lovenox on hold today. Hold tube feeds today Zosyn day 08/15, ID input noted. Blood cx/Flu swab/PNA studies neg. IVF. Platelets/LFTs improved. Spleen US noted. Trend for now. Check coags. Neurology input noted, Lamictal levels noted. DVTPPX lovenox on hold as above Dispo pending clinical improvement. Plan discussed with nursing at bedside, all questions answered.
--- NOTE | 2018-02-18 09:46 | HOSP ---
Subjective - Review of Symptoms Events since last encounter: Paged by nurse, reported blood in stool. Ordered FOBT, CBC, T&S. Day team made aware. Physical Examination Vital Signs: Vital Signs Temperature 98.9 F 02/18/18 05:00 Pulse Rate 98 H 02/18/18 05:00 Respiratory Rate 20 02/18/18 05:00 Blood Pressure 93/48 L 02/18/18 05:00 O2 Sat by Pulse Oximetry (%) 96 02/17/18 21:00 Labs: CBC, BMP 02/18/18 06:24 02/18/18 06:24 Visit type - Emergency Visit Emergency Visit: Yes ED Registration Date: 02/16/18 Care time: The patient presented to the Emergency Department on the above date and was hospitalized for further evaluation of their emergent condition. - New Patient This patient is new to me today: No - Critical Care Critical Care patient: No
--- NOTE | 2018-02-18 09:55 | PN ---
Physical Exam: SUBJECTIVE: Patient seen and examined this AM. Overnight events noted. Pt with clots in stool per nursing, also with nose bleed which has now resolved. OBJECTIVE: Vital Signs Period Temp Pulse Resp BP Sys/Linares Pulse Ox Last 24 Hr 97.7 F-98.9 F 64-98 16-20 90-144/45-82 96-96 GENERAL: Nonverbal, awake but not alert, no acute distress, smiling today HEAD: Microocephalic, atraumatic. EYES: PERRL, no scleral icterus EARS, NOSE, THROAT: oropharynx clear without exudates. Moist mucous membranes. LUNGS: Poor inspiratory effort, rhonchi with minimal improvement HEART: Regular rate and rhythm, normal S1 and S2 without murmur ABDOMEN: Soft, nontender to palpation, normoactive bowel sounds RECTAL: No masses, hemorrhoids, or fissures noted, rectal vault without stool, nontender prostate not boggy, normal in size. Minimal red blood noted on glove and gauze after. MUSCULOSKELETAL: Contracted extremities NEUROLOGICAL: Nonverbal, unable to interact or follow commands Laboratory Results - last 24 hr 02/15/18 02/17/18 02/18/18 13:50 09:30 01:25 WBC RBC Hgb Hct MCV MCH MCHC RDW Plt Count MPV Absolute Neuts (auto) Neutrophils % Lymphocytes % Monocytes % Eosinophils % Basophils % Nucleated RBC % Sodium 140 Potassium 3.6 Chloride 107 Carbon Dioxide 27 Anion Gap 6 L BUN 12 Creatinine 0.6 Creat Clearance w eGFR > 60 POC Glucometer Random Glucose 91 Calcium 8.4 L Phosphorus 4.2 Magnesium 2.1 Total Bilirubin 0.2 Direct Bilirubin 0.1 AST 98 H ALT 96 H Alkaline Phosphatase 294 H Total Protein 6.9 Albumin 2.7 L Stool Occult Blood Positive Lamotrigine 4.4 Blood Type Antibody Screen 02/18/18 02/18/18 02/18/18 02:55 02:55 05:47 WBC 5.7 RBC 3.07 L Hgb 10.5 L Hct 30.5 L MCV 99.2 H MCH 34.2 H MCHC 34.5 RDW 16.0 H Plt Count 122 L D MPV 9.8 Absolute Neuts (auto) Neutrophils % Lymphocytes % Monocytes % Eosinophils % Basophils % Nucleated RBC % Sodium Potassium Chloride Carbon Dioxide Anion Gap BUN Creatinine Creat Clearance w eGFR POC Glucometer 94 Random Glucose Calcium Phosphorus Magnesium Total Bilirubin Direct Bilirubin AST ALT Alkaline Phosphatase Total Protein Albumin Stool Occult Blood Lamotrigine Blood Type O POSITIVE Antibody Screen Negative 02/18/18 02/18/18 06:24 06:24 WBC 5.3 RBC 3.04 L Hgb 10.2 L Hct 30.2 L MCV 99.3 H MCH 33.4 MCHC 33.7 RDW 15.7 Plt Count 120 L MPV 9.6 Absolute Neuts (auto) 2.9 Neutrophils % 54.5 Lymphocytes % 31.8 D Monocytes % 10.1 Eosinophils % 3.4 Basophils % 0.2 Nucleated RBC % 0 Sodium 142 Potassium 3.5 Chloride 107 Carbon Dioxide 31 Anion Gap 5 L BUN 8 Creatinine 0.7 Creat Clearance w eGFR > 60 POC Glucometer Random Glucose 92 Calcium 8.3 L Phosphorus 4.0 Magnesium 2.2 Total Bilirubin 0.3 Direct Bilirubin AST 87 H ALT 84 H Alkaline Phosphatase 267 H Total Protein 6.9 Albumin 2.6 L Stool Occult Blood Lamotrigine Blood Type Antibody Screen Active Medications Generic Name Dose Route Start Last Admin Trade Name Freq PRN Reason Stop Dose Admin Acyclovir 400 mg 02/15/18 10:00 02/17/18 23:22 Zovirax Oral Suspension - GT 400 mg BID [facility]GE Administration Al Hydroxide/Mg Hydroxide 20 ml 02/15/18 10:00 02/17/18 23:23 Mylanta Oral Suspension - GT 20 ml BID [facility] Administration Albuterol/Ipratropium 1 amp 02/15/18 08:00 02/18/18 07:25 Duoneb - NEB 1 amp RQID [facility] Administration Baclofen 10 mg 02/15/18 10:00 02/17/18 23:20 Lioresal - GT 10 mg BID [facility] Administration Budesonide/Formoterol Fumarate 1 puff 02/15/18 10:00 02/17/18 23:23 Symbicort 160/4.5mcg - IH 1 puff BID [facility] Administration Clobazam 5 mg 02/15/18 10:00 02/17/18 12:40 Onfi - GT 5 mg DAILY [facility] Administration Clonazepam 1.5 mg 02/15/18 06:00 02/18/18 05:44 Klonopin - GT 1.5 mg TID [facility] Administration Diazepam 10 mg 02/15/18 04:22 Diastat Rectal Gel - RC PRN PRN SEIZURES Docusate Sodium 200 mg 02/16/18 10:57 02/17/18 23:22 Colace Liquid - PO 200 mg DAILY PRN Administration CONSTIPATION Piperacillin Sod/Tazobactam 50 mls @ 100 mls/hr 02/15/18 18:00 02/18/18 03:14 Sod 3.375 gm/ Dextrose IVPB 100 mls/hr Q8H-IV [facility] Administration Protocol Dextrose/Sodium Chloride 1,000 mls @ 125 mls/hr 02/16/18 17:57 02/17/18 18:37 D5-Ns - IV Not Given ASDIR JORGE Lactobacillus Acidophilus 1 tab 02/15/18 22:00 02/17/18 23:21 Bacid - GT 1 tab HS [facility]GE Administration Lamotrigine 200 mg 02/15/18 10:00 02/17/18 23:22 Lamictal - GT 200 mg BID [facility] Administration Phenobarbital 45 mg 02/15/18 10:00 02/17/18 23:20 Phenobarbital - GT 45 mg BID [facility] Administration Polyethylene Glycol 17 gm 02/16/18 11:00 02/17/18 23:22 Miralax (For Daily Use) - PO 17 gm BID [facility] Administration Ranitidine HCl 75 mg 02/15/18 10:00 02/17/18 23:23 Zantac Oral Solution - GT 75 mg BID JOR[facility] Administration ASSESSMENT/PLAN: 22 yo Male with PMH of severe MR, cerebral palsy, herpetic meningoencephalitis, and asthma who was sent from [place] for AMS. Change in Mental Status -Possibly due to seizure activity, though likely due to Healthcare Acquired Pneumonia -CXR noted with worsening white out of lung on the left -CT chest: Consolidation with air bronchogram in both lower lobes as well as extensive airspace disease in left upper lobe and patchy airspace disease in RUL consistent with pneumonia -Pt received Zosyn on recent admission for pneumonia -Zosyn 3.375 gm Q8, Azithromycin DC -ID consulted, continue current management -Hold tube feeds -Neurology consulted as well due to concern for seizure like activity - facial twitching Hx of Seizures -Neurology consulted - will await recommendations -Prolactin 31.1 -Resume home medications, Phenobartibol 45 mg GT BID, level 4.4 on admission -Lamictal 200 gm GT BID -Diazepam Rectal gel 10 mg RC PRN for active seizure -Clonazepam 1.5 mg GT TID -Clobazam 5 mg GT QD -Baclofen 10 mg GT BID -Seizure precautions -No need for MRI Blood per Rectum/Clots in Stool -H/H down from admission but stable at 03/09, slow downward trend -Rectal exam without masses or fissures, though minimal blood noted on glove -GI consult appreciated -Coags pending -Attempt to contact [facility] for discussion of how to proceed if continued bleeding and if agreeable to EGD/Colonoscopy Hypoglycemia -D5 NS @ 125 cc/hr -BGMs Q6, notify if > 200 Thrombocytopenia -Likely secondary to sepsis/infection -Splenic US with mild splenomegaly Transaminitis -Pt commonly with transaminitis on admission -RUQ ultrasound reveals fatty liver with otherwise limited exam -Trend LFTs Asthma -Continue home meds -Duonebs Q6 -Symbicort BID -Flovent Daily Hx Herpetic Meningoencephalitis -Continue home Acyclovir 400 mg GT BID [facility] -Protonix 40 mg IV Daily per GI DVT Prophylaxis -Lovenox 40 mg SQ Daily FEN -Fluids: D5 NS @125 cc/hr -Electrolytes: No electrolyte abnormalities, BMP in AM -Nutrition: NPO per GI, resume feeds as tolerated if no further bleeding Disposition Med/Surg Visit type - Emergency Visit Emergency Visit: Yes ED Registration Date: 02/16/18 Care time: The patient presented to the Emergency Department on the above date and was hospitalized for further evaluation of their emergent condition. - New Patient This patient is new to me today: No - Critical Care Critical Care patient: No
[2018-02-18] MEDS ORDERED: ENOXAPARIN NA (PORCINE) 40 MG/0.4 ML DISP.SYRIN SQ SCH (10:00)
[2018-02-18] MEDS: RANITIDINE HCL 150 MG/10 ML UNIT-DOSE GT SCH ×2 (10:23→21:13)
[2018-02-18] MEDS: PHENobarbital 30 MG TABLET GT SCH ×2 (10:25→21:20)
[2018-02-18] MEDS: cloBAZam 10 MG TABLET GT SCH (10:26)
[2018-02-18] MEDS: BACLOFEN 10 MG TABLET (FP) GT SCH ×2 (10:26→21:18)
[2018-02-18] MEDS: ACYCLOVIR 200 MG/5 ML LIQUID GT SCH ×2 (10:27→21:18)
[2018-02-18] MEDS: lamoTRIgine 100 MG TABLET (FP) GT SCH ×2 (10:32→21:17)
[2018-02-18] MEDS: MULTIVIT-MINERALS ORAL LIQUID GT SCH (10:32)
[2018-02-18] MEDS: POLYETHYLENE GLYCOL 3350 119 GM BTL PO SCH ×2 (10:33→21:19)
[2018-02-18] MEDS: BUDESONIDE/FORMETEROL FUMARATE 160/4.5 mcg INHALER IH SCH ×2 (10:39→21:27)
[2018-02-18] MEDS: MAG HYDROX/AL HYDROX/SIMETH 30 ML UNIT-DOSE CUP GT SCH ×2 (10:39→21:21)
--- NOTE | 2018-02-18 12:58 | CON.GI ---
Consult Consult Specialty:: GI Referred by:: Hospitalist Reason for Consultation:: blood in stool - History of Present Illness Chief Complaint: Patient non-verbal History of Present Illness: 22[facility] 02/14 for eval of seizures. Being treated for PNA. Noted coughing up blood tinged secretions. Noted blood in stool last night. No overt bleeding reported from day nurse today. Hgb 10.6 yesterday mornind, 10.2 this morning. No diarrhea reported. No hematemesis reported. LFTs are abnormal chronically. He has been having fevers. 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 TECHNICIAN: Yes: Other (Mental retardation) Pulmonary: Yes: Asthma Gastrointestinal: Yes: Other (gastrostomy) Infectious Disease: Yes: Herpes Zoster Musculoskeletal: Yes: Other (Functional Qaudraplegic) - Past Surgical History Additional Surgical History: gastrostomy - Alcohol/Substance Use Hx Alcohol Use: No - Smoking History Smoking history: Never smoked Have you smoked in the past 12 months: No Aproximately how many cigarettes per day: 0 - Social History Usual Living Arrangement: Intermediate ADL: Support Services History of Recent Travel: No Home Medications - Allergies Allergies/Adverse Reactions: Allergies Allergy/AdvReac Type Severity Reaction Status Date / Time No Known Allergies Allergy Verified 02/14/18 18:16 - Home Medications Home Medications: Ambulatory Orders Acyclovir 400 mg GT BID 04/25/17 Baclofen 10 mg GT BID 04/25/17 Benzoyl Peroxide 5% Gel - 1 applic TP BID 04/25/17 Budesonide/Formeterol Fumarate [SYMBICORT 160/4.5mcg -] 1 inh PO BID 04/25/17 Clobazam [Onfi -] 5 mg GT DAILY 04/25/17 Clonazepam 1.5 mg GT TID 04/25/17 Diazepam Rectal Gel [Diastat Rectal Gel -] 10 mg RC PRN PRN 04/25/17 Fluticasone Propionate [Flovent Diskus] 50 mcg IH DAILY 04/25/17 Fructooligosaccharides/Polydex [Fiber-Stat 15 gm/30 ml Liquid] 15 gm GT DAILY Ipratropium/Albuterol Sulfate [Iprat-Albut 0.5-3(2.5) mg/3 ml] 3 ml IH Q6H 04/25 Lactobacillus Acidophilus [Acidophilus] 1 each GT HS 04/25/17 Lamotrigine 200 mg GT BID 04/25/17 Magnesium Hydrox 2400MG/30Ml [Milk of Magnesia -] 20 ml GT BID 04/25/17 Multivitamin [Poly-Vitamin] 1 each GT DAILY 04/25/17 Phenobarbital 48.6 mg GT BID 04/25/17 Ranitidine [Zantac -] 75 mg GT BID 04/25/17 Family Disease History - Family Disease History Family History: Unable to Obtain Review of Systems - Review of Systems Constitutional: reports: Fever Gastrointestinal: reports: Rectal Bleeding. denies: Constipation, Diarrhea, Melena, Vomiting Physical Exam-GI Vital Signs: Vital Signs Temperature 98.9 F 02/18/18 05:00 Pulse Rate 98 H 02/18/18 05:00 Respiratory Rate 20 02/18/18 05:00 Blood Pressure 93/48 L 02/18/18 05:00 O2 Sat by Pulse Oximetry (%) 98 02/18/18 09:00 Constitutional: Yes: Calm Eyes: No: Sclera Icterus Cardiovascular: Yes: Regular Rate and Rhythm. No: Murmur Respiratory: Yes: Diminished (at bases b/l, poor insp effort) Gastrointestinal Inspection: Yes: Other (low profile G tube in place in mid abdomen: G-Tube lavaed: bilious return. no blood/blood clots). No: Distention ...Auscultate: Yes: Normoactive Bowel Sounds ...Palpate: Yes: Soft. No: Tenderness (No grimacing upon palpation) ...Percussion: No: Tympanitic ...Rectal Exam: Yes: Other (No external lesions, no masses, formed stool, blood tinged) Extremities: Yes: Other (contracted lower extremities. no edema) Labs: CBC, BMP 02/18/18 06:24 02/18/18 06:24 INR, PTT INR 1.12 (0.83-1.09) H 02/14/18 18:45 Hepatic Panel Total Bilirubin 0.3 mg/dL (0.2-1) 02/18/18 06:24 Direct Bilirubin 0.1 mg/dL (0.0-0.2) 02/17/18 09:30 AST 87 U/L (15-37) H 02/18/18 06:24 ALT 84 U/L (13-61) H 02/18/18 06:24 Alkaline Phosphatase 267 U/L (45-117) H 02/18/18 06:24 Albumin 2.6 g/dl (3.4-5.0) L 02/18/18 06:24 Problem List - Problems (1) Rectal bleed Assessment/Plan: No overt bleeding reported today. Benign abdominal exam makes inflammatory process less likely. Observe for now NPO, IV hydration and resume feeds in AM if no further bleeding If continued bleeding decision needs to be made as to what Mr. Lanier' family wants done in terms of endoscopic evaluation. I left a message to have Ms. Lanier' mother call my office to discuss further Monitor H/H Evaluation of hemoptysis per primary team Evaluation of macrocytic anemia per primary team Abdominal US to evaluate abnormal liver chemistries Minimize hepatotoxic agents Protonix 40mg IVPB daily Careful with the G-Tube in terms of meds. it is a small romanian g-tube and likely apt to clog if not flushed properly aspiration precautions Code(s): K62.5 - HEMORRHAGE OF ANUS AND RECTUM
--- NOTE | 2018-02-18 14:35 | PN ---
Progress Note, Physician History of Present Illness: clinically stable patient still with some hemoptysis but minimal cough noted bleeding per rectum gi note noted - Current Medication List Current Medications: Active Medications Acyclovir (Zovirax Oral Suspension -) 400 mg GT BID [facility] Last Admin: 02/18/18 10:27 Dose: 400 mg Al Hydroxide/Mg Hydroxide (Mylanta Oral Suspension -) 20 ml GT BID [facility] Last Admin: 02/18/18 10:39 Dose: 20 ml Albuterol/Ipratropium (Duoneb -) 1 amp NEB RQID JORGE Last Admin: 02/18/18 11:30 Dose: 1 amp Baclofen (Lioresal -) 10 mg GT BID [facility] Last Admin: 02/18/18 10:26 Dose: 10 mg Budesonide/Formoterol Fumarate (Symbicort 160/4.5mcg -) 1 puff IH BID [facility] Last Admin: 02/18/18 10:39 Dose: Not Given Clobazam (Onfi -) 5 mg GT DAILY [facility] Last Admin: 02/18/18 10:26 Dose: 5 mg Clonazepam (Klonopin -) 1.5 mg GT TID [facility] Last Admin: 02/18/18 05:44 Dose: 1.5 mg Diazepam (Diastat Rectal Gel -) 10 mg RC PRN PRN PRN Reason: SEIZURES Docusate Sodium (Colace Liquid -) 200 mg PO DAILY PRN PRN Reason: CONSTIPATION Last Admin: 02/17/18 23:22 Dose: 200 mg Piperacillin Sod/Tazobactam (Sod 3.375 gm/ Dextrose) 50 mls @ 100 mls/hr IVPB Q8H-IV JORGE; Protocol Last Admin: 02/18/18 10:29 Dose: 100 mls/hr Dextrose/Sodium Chloride (D5-Ns -) 1,000 mls @ 125 mls/hr IV ASDIR [facility]OR[facility] Last Admin: 02/17/18 18:37 Dose: Not Given Lactobacillus Acidophilus (Bacid -) 1 tab GT HS [facility] Last Admin: 02/17/18 23:21 Dose: 1 tab Lamotrigine (Lamictal -) 200 mg GT BID [facility] Last Admin: 02/18/18 10:32 Dose: 200 mg Phenobarbital (Phenobarbital -) 45 mg GT BID [facility] Last Admin: 02/18/18 10:25 Dose: 45 mg Polyethylene Glycol (Miralax (For Daily Use) -) 17 gm PO BID [facility] Last Admin: 02/18/18 10:33 Dose: 17 gm Ranitidine HCl (Zantac Oral Solution -) 75 mg GT BID [facility] Last Admin: 02/18/18 10:23 Dose: 75 mg - Objective Vital Signs: Vital Signs Temperature 98 F 02/18/18 13:50 Pulse Rate 70 02/18/18 13:50 Respiratory Rate 20 02/18/18 13:50 Blood Pressure 103/46 L 02/18/18 13:50 O2 Sat by Pulse Oximetry (%) 98 02/18/18 09:00 Constitutional: Yes: No Distress, Calm, Other (bed bound) Cardiovascular: Yes: Regular Rate and Rhythm Respiratory: Yes: On Nasal O2, Poor Air Entry, Other (some hemoptysis) Gastrointestinal: Yes: Normal Bowel Sounds, Soft, Other Musculoskeletal: Yes: Other Extremities: Yes: Other Neurological: Yes: Alert, Other Psychiatric: Yes: Other Labs: CBC, BMP 02/18/18 06:24 02/18/18 06:24 INR, PTT INR 1.12 (0.83-1.09) H 02/14/18 18:45 Assessment/Plan ams lethargy cough fever bleeding p/r plan continue current mgmgt will continue abx for at least 7 days monitor for hemoptysis as per gi for bleeding p/r patient comfortable nutrition
[2018-02-18] MEDS: DEXTROSE 5%-NORMAL SALINE 1,000 ML IV SCH (21:16)
[2018-02-18] MEDS: LACTOBACILLUS ACIDOPHILUS 1 TABLET GT SCH (21:17)
[2018-02-19] MEDS: clonazePAM 0.5 MG TABLET GT SCH ×3 (05:37→21:22)
[2018-02-19] MEDS: ALBUTEROL SO4 2.5/IPRATROPIUM 0.5 INH SOL 3 ML VIAL.NEB. NEB SCH ×4 (07:39→20:38)
[2018-02-19 08:07] LABS: BASO % 0.3 % (0-2.0); EOS % 2.1 % (0-4.5); HEMATOCRIT 31.3 % (35.4-49); HEMOGLOBIN 10.6 GM/dL (11.7-16.9); MCH 33.7 pg (25.7-33.7); MEAN CELL VOLUME 99.1 fl (80-96); MONO % 8.7 % (3.8-10.2); NEUT % 53.9 % (42.8-82.8); PLATELET COUNT 175 K/MM3 (134-434); RBC 3.16 M/mm3 (4.00-5.60); RDW 15.4 % (11.9-15.9); WHITE BLOOD COUNT 6.7 K/mm3 (4.0-10.0)
[2018-02-19] MEDS ORDERED: OXYMETAZOLINE 0.05% NASAL SOLUTION 15 ML BOTTLE NS ONE (08:14)
[2018-02-19 08:23] LABS: ALBUMIN 2.8 g/dl (3.4-5.0); ALK PHOS 261 U/L (45-117); ANION GAP 7 MMOL/L (8-16); BILIRUBIN,TOTAL 0.3 mg/dL (0.2-1); BLOOD UREA NITROGEN 7 mg/dL (7-18); CALCIUM 8.5 mg/dL (8.5-10.1); CHLORIDE 106 mmol/L (98-107); CO2 29 mmol/L (21-32); CREATININE 0.6 mg/dL (0.55-1.3); GLUCOSE,RANDOM 102 mg/dL (74-106); PHOSPHOROUS 3.8 mg/dL (2.5-4.9); POTASSIUM 3.5 mmol/L (3.5-5.1); SGOT/AST 76 U/L (15-37); SGPT/ALT 77 U/L (13-61); SODIUM 142 mmol/L (136-145); TOT PROT 7.3 g/dl (6.4-8.2)
[2018-02-19] MEDS: MULTIVIT-MINERALS ORAL LIQUID GT SCH (10:27)
[2018-02-19 10:28] LABS: INR 1.14 (0.83-1.09); PROTHROMBIN TIME (PATIENT) 13.5 SEC (9.7-13.0)
[2018-02-19] MEDS: POLYETHYLENE GLYCOL 3350 119 GM BTL PO SCH ×2 (10:28→21:23)
[2018-02-19] MEDS: lamoTRIgine 100 MG TABLET (FP) GT SCH ×2 (10:28→21:19)
[2018-02-19 10:31] LABS: ACTIVATED PTT 32.2 SECONDS (25.2-36.5)
[2018-02-19] MEDS: MAG HYDROX/AL HYDROX/SIMETH 30 ML UNIT-DOSE CUP GT SCH ×2 (10:31→21:21)
[2018-02-19] MEDS: RANITIDINE HCL 150 MG/10 ML UNIT-DOSE GT SCH ×2 (10:31→21:21)
[2018-02-19] MEDS: cloBAZam 10 MG TABLET GT SCH (10:32)
[2018-02-19] MEDS: BACLOFEN 10 MG TABLET (FP) GT SCH ×2 (10:32→21:22)
[2018-02-19] MEDS: ACYCLOVIR 200 MG/5 ML LIQUID GT SCH ×2 (10:35→21:18)
[2018-02-19] MEDS: BUDESONIDE/FORMETEROL FUMARATE 160/4.5 mcg INHALER IH SCH ×2 (10:36→21:24)
--- NOTE | 2018-02-19 11:41 | PN ---
Progress Note, Physician History of Present Illness: events noted bleeding nose on face mask calm - Current Medication List Current Medications: Active Medications Acyclovir (Zovirax Oral Suspension -) 400 mg GT BID [facility] Last Admin: 02/19/18 10:35 Dose: 400 mg Al Hydroxide/Mg Hydroxide (Mylanta Oral Suspension -) 20 ml GT BID [facility] Last Admin: 02/19/18 10:31 Dose: 20 ml Albuterol/Ipratropium (Duoneb -) 1 amp NEB RQID [facility] Last Admin: 02/19/18 11:33 Dose: 1 amp Baclofen (Lioresal -) 10 mg GT BID [facility] Last Admin: 02/19/18 10:32 Dose: 10 mg Budesonide/Formoterol Fumarate (Symbicort 160/4.5mcg -) 1 puff IH BID [facility] Last Admin: 02/19/18 10:36 Dose: Not Given Clobazam (Onfi -) 5 mg GT DAILY [facility] Last Admin: 02/19/18 10:32 Dose: 5 mg Clonazepam (Klonopin -) 1.5 mg GT TID [facility] Last Admin: 02/19/18 05:37 Dose: 1.5 mg Docusate Sodium (Colace Liquid -) 200 mg PO DAILY PRN PRN Reason: CONSTIPATION Last Admin: 02/17/18 23:22 Dose: 200 mg Dextrose/Sodium Chloride (D5-Ns -) 1,000 mls @ 125 mls/hr IV ASDIR [facility] Last Admin: 02/18/18 21:16 Dose: 125 mls/hr Lactobacillus Acidophilus (Bacid -) 1 tab GT HS [facility] Last Admin: 02/18/18 21:17 Dose: 1 tab Lamotrigine (Lamictal -) 200 mg GT BID [facility] Last Admin: 02/19/18 10:28 Dose: 200 mg Phenobarbital (Phenobarbital -) 45 mg GT BID [facility] Last Admin: 02/18/18 21:20 Dose: 45 mg Polyethylene Glycol (Miralax (For Daily Use) -) 17 gm PO BID [facility] Last Admin: 02/19/18 10:28 Dose: Not Given Ranitidine HCl (Zantac Oral Solution -) 75 mg GT BID [facility] Last Admin: 02/19/18 10:31 Dose: 75 mg - Objective Vital Signs: Vital Signs Temperature 97.4 F L 02/19/18 10:00 Pulse Rate 64 02/19/18 10:00 Respiratory Rate 18 02/19/18 10:00 Blood Pressure 100/50 L 02/19/18 10:00 O2 Sat by Pulse Oximetry (%) 98 02/18/18 21:00 Constitutional: Yes: No Distress, Calm HENT: Yes: Other (nasla bleeding left--packed) Cardiovascular: Yes: Regular Rate and Rhythm Respiratory: Yes: Poor Air Entry, Other (on face mask) Gastrointestinal: Yes: Normal Bowel Sounds, Soft Musculoskeletal: Yes: WNL Extremities: Yes: Other (contracted) Neurological: Yes: Other Labs: CBC, BMP 02/19/18 07:50 02/19/18 07:50 INR, PTT INR 1.14 (0.83-1.09) H 02/19/18 09:30 Assessment/Plan ams lethargy cough fever bleeding p/r plan continue current mgmgt continue abx monitor for nasal bleeding rest as per the team
[2018-02-19] MEDS: PHENobarbital 30 MG TABLET GT SCH ×2 (13:51→21:20)
--- NOTE | 2018-02-19 15:15 | PN ---
Teaching Attending Note Name of Resident: Emile Andrade ATTENDING PHYSICIAN STATEMENT I saw and evaluated the patient. I reviewed the resident's note and discussed the case with the resident. I agree with the resident's findings and plan as documented with exceptions below. SUBJECTIVE: Patient seen and examined, left nare bleeding, breathing comfortably, non verbal , unable to assess for ROS. OBJECTIVE: Vital Signs Period Temp Pulse Resp BP Sys/Linares Pulse Ox Last 24 Hr 97.4 F-99.3 F 64-101 18-20 97-107/43-63 98 Intake & Output 02/16/18 02/17/18 02/18/18 02/19/18 23:59 23:59 23:59 23:59 Intake Total 50 1000 1175 450 Output Total 358 234 5727 700 Balance -550 450 -125 -250 Weight 102 lb General: breathing comfortably HEENT: left nasal bleed Chest; occasional coarse rales, good air entry Abdomen:soft, NT Extremities: contractures Active Medications Acyclovir (Zovirax Oral Suspension -) 400 mg GT BID [facility] Last Admin: 02/19/18 10:35 Dose: 400 mg Al Hydroxide/Mg Hydroxide (Mylanta Oral Suspension -) 20 ml GT BID [facility] Last Admin: 02/19/18 10:31 Dose: 20 ml Albuterol/Ipratropium (Duoneb -) 1 amp NEB RQID [facility] Last Admin: 02/19/18 11:33 Dose: 1 amp Baclofen (Lioresal -) 10 mg GT BID [facility] Last Admin: 02/19/18 10:32 Dose: 10 mg Budesonide/Formoterol Fumarate (Symbicort 160/4.5mcg -) 1 puff IH BID [facility] Last Admin: 02/19/18 10:36 Dose: Not Given Clobazam (Onfi -) 5 mg GT DAILY [facility] Last Admin: 02/19/18 10:32 Dose: 5 mg Clonazepam (Klonopin -) 1.5 mg GT TID [facility] Last Admin: 02/19/18 13:06 Dose: 1.5 mg Docusate Sodium (Colace Liquid -) 200 mg PO DAILY PRN PRN Reason: CONSTIPATION Last Admin: 02/17/18 23:22 Dose: 200 mg Dextrose/Sodium Chloride (D5-Ns -) 1,000 mls @ 125 mls/hr IV ASDIR [facility] Last Admin: 02/18/18 21:16 Dose: 125 mls/hr Lactobacillus Acidophilus (Bacid -) 1 tab GT HS [facility] Last Admin: 02/18/18 21:17 Dose: 1 tab Lamotrigine (Lamictal -) 200 mg GT BID [facility] Last Admin: 02/19/18 10:28 Dose: 200 mg Phenobarbital (Phenobarbital -) 45 mg GT BID [facility] Last Admin: 02/19/18 13:51 Dose: 45 mg Polyethylene Glycol (Miralax (For Daily Use) -) 17 gm PO BID [facility] Last Admin: 02/19/18 10:28 Dose: Not Given Ranitidine HCl (Zantac Oral Solution -) 75 mg GT BID [facility] Last Admin: 02/19/18 10:31 Dose: 75 mg Laboratory Results - last 24 hr 02/18/18 02/19/18 02/19/18 23:24 05:59 07:50 WBC 6.7 RBC 3.16 L Hgb 10.6 L Hct 31.3 L MCV 99.1 H MCH 33.7 MCHC 34.0 RDW 15.4 Plt Count 175 D MPV 9.0 Absolute Neuts (auto) 3.6 Neutrophils % 53.9 Lymphocytes % 35.0 Monocytes % 8.7 Eosinophils % 2.1 Basophils % 0.3 Nucleated RBC % 0 PT with INR INR PTT (Actin FS) Sodium Potassium Chloride Carbon Dioxide Anion Gap BUN Creatinine Creat Clearance w eGFR POC Glucometer 111 97 Random Glucose Calcium Phosphorus Magnesium Total Bilirubin AST ALT Alkaline Phosphatase Total Protein Albumin 02/19/18 02/19/18 02/19/18 07:50 09:30 12:27 WBC RBC Hgb Hct MCV MCH MCHC RDW Plt Count MPV Absolute Neuts (auto) Neutrophils % Lymphocytes % Monocytes % Eosinophils % Basophils % Nucleated RBC % PT with INR 13.50 H INR 1.14 H PTT (Actin FS) 32.2 Sodium 142 Potassium 3.5 Chloride 106 Carbon Dioxide 29 Anion Gap 7 L BUN 7 Creatinine 0.6 Creat Clearance w eGFR > 60 POC Glucometer 100 Random Glucose 102 Calcium 8.5 Phosphorus 3.8 Magnesium 2.0 Total Bilirubin 0.3 AST 76 H ALT 77 H Alkaline Phosphatase 261 H Total Protein 7.3 Albumin 2.8 L ASSESSMENT AND PLAN: 22yo M with PMH MR, CP, herpetic mengioencephalitis and asthma presented to the ER with hypoxia and hypotensive after seizure episode. as per Aid yesterday he has been more lethargic for the past 2 weeks -Sepsis with multifocal PNA, suspect aspiration -Acute toxic metabolic encephalopathy,likely from above -Epitaxis -Hematochezia, ?diverticular vs haemorrhoidal, less likely upper GI -Transaminitis, known from prior -Acute thrombocytopenia, likely from sepsis -Seizure -Acute hypoxic respiratory distress -Hematuria -Cerebral palsy -Asthma Plan: Left nasal rhinorocket placed, hemostasis achieved. Humidified oxygen. h.h stable. ENT consult. No further concerns for bloody stools. GI input noted. Resume po per GI. Lovenox on hold for now. Zosyn day /, ID input noted. Sputum cx noted. Blood cx/Flu swab/PNA studies neg. IVF. Platelets/LFTs improved. Spleen US noted. Trend for now. coags noted Neurology input noted, Lamictal levels noted. DVTPPX lovenox on hold as above Dispo pending clinical improvement. Plan discussed with nursing at bedside, all questions answered. total time spent given active bleed concerns, rhino rocket insertion, co- ordination of care 40 min.
--- NOTE | 2018-02-19 15:30 | PN ---
Physical Exam: SUBJECTIVE: Patient seen and examined this AM. Overnight events noted. Pt with recurring nose bleeding even on humidified O2. OBJECTIVE: Vital Signs Period Temp Pulse Resp BP Sys/Linares Pulse Ox Last 24 Hr 97.4 F-99.3 F 64-101 18-20 97-107/43-63 98 GENERAL: Nonverbal, awake but not alert, no acute distress, smiling today HEAD: Microocephalic, atraumatic. EYES: PERRL, no scleral icterus EARS, NOSE, THROAT: Nose bleed from left nostril noted, with some residual blood in back of the throat LUNGS: Poor inspiratory effort, rhonchi with minimal improvement HEART: Regular rate and rhythm, normal S1 and S2 without murmur ABDOMEN: Soft, nontender to palpation, normoactive bowel sounds MUSCULOSKELETAL: Contracted extremities NEUROLOGICAL: Nonverbal, unable to interact or follow commands Laboratory Results - last 24 hr 02/18/18 02/19/18 02/19/18 23:24 05:59 07:50 WBC 6.7 RBC 3.16 L Hgb 10.6 L Hct 31.3 L MCV 99.1 H MCH 33.7 MCHC 34.0 RDW 15.4 Plt Count 175 D MPV 9.0 Absolute Neuts (auto) 3.6 Neutrophils % 53.9 Lymphocytes % 35.0 Monocytes % 8.7 Eosinophils % 2.1 Basophils % 0.3 Nucleated RBC % 0 PT with INR INR PTT (Actin FS) Sodium Potassium Chloride Carbon Dioxide Anion Gap BUN Creatinine Creat Clearance w eGFR POC Glucometer 111 97 Random Glucose Calcium Phosphorus Magnesium Total Bilirubin AST ALT Alkaline Phosphatase Total Protein Albumin 02/19/18 02/19/18 02/19/18 07:50 09:30 12:27 WBC RBC Hgb Hct MCV MCH MCHC RDW Plt Count MPV Absolute Neuts (auto) Neutrophils % Lymphocytes % Monocytes % Eosinophils % Basophils % Nucleated RBC % PT with INR 13.50 H INR 1.14 H PTT (Actin FS) 32.2 Sodium 142 Potassium 3.5 Chloride 106 Carbon Dioxide 29 Anion Gap 7 L BUN 7 Creatinine 0.6 Creat Clearance w eGFR > 60 POC Glucometer 100 Random Glucose 102 Calcium 8.5 Phosphorus 3.8 Magnesium 2.0 Total Bilirubin 0.3 AST 76 H ALT 77 H Alkaline Phosphatase 261 H Total Protein 7.3 Albumin 2.8 L Active Medications Generic Name Dose Route Start Last Admin Trade Name Debbie PRN Reason Stop Dose Admin Acyclovir 400 mg 02/15/18 10:00 02/19/18 10:35 Zovirax Oral Suspension - GT 400 mg BID JORGE Administration Al Hydroxide/Mg Hydroxide 20 ml 02/15/18 10:00 02/19/18 10:31 Mylanta Oral Suspension - GT 20 ml BID [facility]ORGE Administration Albuterol/Ipratropium 1 amp 02/15/18 08:00 02/19/18 11:33 Duoneb - NEB 1 amp RQID JORGE Administration Baclofen 10 mg 02/15/18 10:00 02/19/18 10:32 Lioresal - GT 10 mg BID JORGE Administration Budesonide/Formoterol Fumarate 1 puff 02/15/18 10:00 02/19/18 10:36 Symbicort 160/4.5mcg - IH Not Given BID JORGE Clobazam 5 mg 02/15/18 10:00 02/19/18 10:32 Onfi - GT 5 mg DAILY JORGE Administration Clonazepam 1.5 mg 02/15/18 06:00 02/19/18 13:06 Klonopin - GT 1.5 mg TID JORGE Administration Docusate Sodium 200 mg 02/16/18 10:57 02/17/18 23:22 Colace Liquid - PO 200 mg DAILY PRN Administration CONSTIPATION Dextrose/Sodium Chloride 1,000 mls @ 125 mls/hr 02/16/18 17:57 02/18/18 21:16 D5-Ns - IV 125 mls/hr ASDIR JORGE Administration Lactobacillus Acidophilus 1 tab 02/15/18 22:00 02/18/18 21:17 Bacid - GT 1 tab HS JORGE Administration Lamotrigine 200 mg 02/15/18 10:00 02/19/18 10:28 Lamictal - GT 200 mg BID JORGE Administration Phenobarbital 45 mg 02/15/18 10:00 02/19/18 13:51 Phenobarbital - GT 45 mg BID JORGE Administration Polyethylene Glycol 17 gm 02/16/18 11:00 02/19/18 10:28 Miralax (For Daily Use) - PO Not Given BID JORGE Ranitidine HCl 75 mg 02/15/18 10:00 02/19/18 10:31 Zantac Oral Solution - GT 75 mg BID JORGE Administration ASSESSMENT/PLAN: 22 yo Male with PMH of severe MR, cerebral palsy, herpetic meningoencephalitis, and asthma who was sent from [place] for [facility]. Change in Mental Status -Possibly due to seizure activity, though likely due to Healthcare Acquired Pneumonia -CXR noted with worsening white out of lung on the left -CT chest: Consolidation with air bronchogram in both lower lobes as well as extensive airspace disease in left upper lobe and patchy airspace disease in RUL consistent with pneumonia -Pt received Zosyn on recent admission for pneumonia -Zosyn 3.375 gm Q8 -ID consulted, continue current management -Sputum cultures + for Pseudomonas, Non Lactose fermenting G- Bacilli, Beta hemolytic strep -Neurology consulted as well due to concern for seizure like activity - facial twitching Hx of Seizures -Neurology consulted - will await recommendations -Prolactin 31.1 -Resume home medications, Phenobartibol 45 mg GT BID, level 4.4 on admission -Lamictal 200 gm GT BID -Diazepam Rectal gel 10 mg RC PRN for active seizure -Clonazepam 1.5 mg GT TID -Clobazam 5 mg GT QD -Baclofen 10 mg GT BID -Seizure precautions -No need for MRI Nasal Bleeding noted -Pt noted with repeated bleeding from left nare -Humidified O2 -Continued bleeding, pt required placement of anterior RhinoRocket 4.5 cm in left nare -No active bleeding at this time, though pt still with blood tinged sputum -H/H stable -ENT Consulted and will see the patient -Pt on Zosyn as above Blood per Rectum/Clots in Stool -H/H down from admission but stable at 10/30, slow downward trend -Rectal exam without masses or fissures, though minimal blood noted on glove -GI consult appreciated -Coags normal -Attempt to contact [facility] for discussion of how to proceed if continued bleeding and if agreeable to EGD/Colonoscopy Hypoglycemia -D5 NS @ 125 cc/hr -BGMs Q6, notify if > 200 Thrombocytopenia -Likely secondary to sepsis/infection -Splenic US with mild splenomegaly Transaminitis -Pt commonly with transaminitis on admission -RUQ ultrasound reveals fatty liver with otherwise limited exam -Trend LFTs, slowly improving Asthma -Continue home meds -Duonebs Q6 -Symbicort BID -Flovent Daily Hx Herpetic Meningoencephalitis -Continue home Acyclovir 400 mg GT BID GERD -Protonix 40 mg IV Daily per GI DVT Prophylaxis -Lovenox 40 mg SQ Daily -Hold for bleeding FEN -Fluids: D5 NS @125 cc/hr -Electrolytes: No electrolyte abnormalities, BMP in AM -Nutrition: Osmolyte at 20 cc/hr with 20 cc of free water Disposition Med/Surg Visit type - Emergency Visit Emergency Visit: Yes ED Registration Date: 02/16/18 Care time: The patient presented to the Emergency Department on the above date and was hospitalized for further evaluation of their emergent condition. - New Patient This patient is new to me today: No - Critical Care Critical Care patient: No
--- NOTE | 2018-02-19 18:11 | CON.ENT ---
Consult Consult Specialty:: ENT Reason for Consultation:: nasal bleeding - History of Present Illness Chief Complaint: left nasal bleeding History of Present Illness: 22 yo M with severe mental retardation, cerebral palsy left nasal bleeding noted, nasal packing inserted today some blood seen in mouth pt unable to communicate because of his neurologic condition - History Source History Provided By: Medical Record Limitations to Obtaining History: Clinical Condition - Past Medical History LEVELMAN: Yes: Other (Mental retardation, cerebral palsy) Pulmonary: Yes: Asthma Gastrointestinal: Yes: Other (gastrostomy) Infectious Disease: Yes: Herpes Zoster Musculoskeletal: Yes: Other (Functional Qaudraplegic) - Past Surgical History Additional Surgical History: gastrostomy - Alcohol/Substance Use Hx Alcohol Use: No - Smoking History Smoking history: Never smoked Have you smoked in the past 12 months: No Aproximately how many cigarettes per day: 0 - Social History Usual Living Arrangement: [facility] ADL: Support Services History of Recent Travel: No Home Medications - Allergies Allergies/Adverse Reactions: Allergies Allergy/AdvReac Type Severity Reaction Status Date / Time No Known Allergies Allergy Verified 02/14/18 18:16 - Home Medications Home Medications: Ambulatory Orders Acyclovir 400 mg GT BID 04/25/17 Baclofen 10 mg GT BID 04/25/17 Benzoyl Peroxide 5% Gel - 1 applic TP BID 04/25/17 Budesonide/Formeterol Fumarate [SYMBICORT 160/4.5mcg -] 1 inh PO BID 04/25/17 Clobazam [Onfi -] 5 mg GT DAILY 04/25/17 Clonazepam 1.5 mg GT TID 04/25/17 Diazepam Rectal Gel [Diastat Rectal Gel -] 10 mg RC PRN PRN 04/25/17 Fluticasone Propionate [Flovent Diskus] 50 mcg IH DAILY 04/25/17 Fructooligosaccharides/Polydex [Fiber-Stat 15 gm/30 ml Liquid] 15 gm GT DAILY Ipratropium/Albuterol Sulfate [Iprat-Albut 0.5-3(2.5) mg/3 ml] 3 ml IH Q6H 04/25 Lactobacillus Acidophilus [Acidophilus] 1 each GT HS 04/25/17 Lamotrigine 200 mg GT BID 04/25/17 Magnesium Hydrox 2400MG/30Ml [Milk of Magnesia -] 20 ml GT BID 04/25/17 Multivitamin [Poly-Vitamin] 1 each GT DAILY 04/25/17 Phenobarbital 48.6 mg GT BID 04/25/17 Ranitidine [Zantac -] 75 mg GT BID 04/25/17 Physical Exam-ENT Vital Signs: Vital Signs Temperature 97.6 F 02/19/18 15:09 Pulse Rate 66 02/19/18 15:09 Respiratory Rate 20 02/19/18 15:09 Blood Pressure 97/63 02/19/18 15:09 O2 Sat by Pulse Oximetry (%) 98 02/18/18 21:00 Head: Yes: WNL Nose: Yes: Other (left nasal packing in place, no bleeding) Oral/Pharynx: Yes: Other (maxillary crowding, severe, dry blood on palate, tonsils normal, no active bleeding into pharynx) Outer Ear: Yes: WNL Ear Canal: Yes: Cerumen Neck: Yes: WNL Problem List - Problems (1) Nasal bleeding Assessment/Plan: left nasal bleeding noted nasal packing inserted, no bleeding now Recommend: continue nasal packing for 48-72 hrs, then may remove humidify oxygen when packing removed then nasal saline spray bid Thank you for consultation Clifford Wyatt MD FACS Code(s): R04.0 - EPISTAXIS
[2018-02-19] MEDS: LACTOBACILLUS ACIDOPHILUS 1 TABLET GT SCH (21:22)
[2018-02-19] MEDS: DEXTROSE 5%-NORMAL SALINE 1,000 ML IV SCH (21:23)
[2018-02-20] MEDS: clonazePAM 0.5 MG TABLET GT SCH ×3 (05:19→21:55)
[2018-02-20] MEDS ORDERED: PT OWN MED DRAWER 7, Y5N ONE ×2 (07:07→11:12)
[2018-02-20 07:38] LABS: BASO % 0.2 % (0-2.0); EOS % 1.3 % (0-4.5); HEMATOCRIT 31.3 % (35.4-49); HEMOGLOBIN 10.6 GM/dL (11.7-16.9); LYMPH % 18.8 % (8-40); MCH 33.9 pg (25.7-33.7); MEAN CELL VOLUME 99.6 fl (80-96); MEAN PLT VOLUME 9.7 fl (7.5-11.1); MONO % 7.8 % (3.8-10.2); NEUT % 71.9 % (42.8-82.8); PLATELET COUNT 228 K/MM3 (134-434); RBC 3.14 M/mm3 (4.00-5.60); RDW 15.6 % (11.9-15.9); WHITE BLOOD COUNT 9.8 K/mm3 (4.0-10.0)
[2018-02-20 07:57] LABS: INR 1.14 (0.83-1.09); PROTHROMBIN TIME (PATIENT) 13.5 SEC (9.7-13.0)
[2018-02-20 08:42] LABS: ANION GAP 8 MMOL/L (8-16); BLOOD UREA NITROGEN 5 mg/dL (7-18); CHLORIDE 104 mmol/L (98-107); CO2 28 mmol/L (21-32); CREATININE 0.6 mg/dL (0.55-1.3); GLUCOSE,RANDOM 97 mg/dL (74-106); POTASSIUM 3.8 mmol/L (3.5-5.1); SODIUM 140 mmol/L (136-145)
[2018-02-20 08:43] LABS: ALBUMIN 2.9 g/dl (3.4-5.0); ALK PHOS 272 U/L (45-117); BILIRUBIN,TOTAL 0.2 mg/dL (0.2-1); CALCIUM 8.4 mg/dL (8.5-10.1); PHOSPHOROUS 3.9 mg/dL (2.5-4.9); SGOT/AST 61 U/L (15-37); SGPT/ALT 69 U/L (13-61); TOT PROT 7.7 g/dl (6.4-8.2)
[2018-02-20] MEDS: cloBAZam 10 MG TABLET GT SCH (11:16)
[2018-02-20] MEDS: MAG HYDROX/AL HYDROX/SIMETH 30 ML UNIT-DOSE CUP GT SCH ×2 (11:17→21:56)
[2018-02-20] MEDS: BACLOFEN 10 MG TABLET (FP) GT SCH ×2 (11:17→21:55)
[2018-02-20] MEDS: lamoTRIgine 100 MG TABLET (FP) GT SCH ×2 (11:18→21:55)
[2018-02-20] MEDS: POLYETHYLENE GLYCOL 3350 119 GM BTL PO SCH ×2 (11:18→22:00)
[2018-02-20] MEDS: ACYCLOVIR 200 MG/5 ML LIQUID GT SCH ×2 (11:18→21:55)
[2018-02-20] MEDS: BUDESONIDE/FORMETEROL FUMARATE 160/4.5 mcg INHALER IH SCH ×2 (11:19→21:54)
[2018-02-20] MEDS: RANITIDINE HCL 150 MG/10 ML UNIT-DOSE GT SCH ×2 (11:19→21:56)
[2018-02-20] MEDS: PHENobarbital 30 MG TABLET GT SCH ×2 (11:20→22:10)
[2018-02-20] MEDS: MULTIVIT-MINERALS ORAL LIQUID GT SCH (11:20)
--- NOTE | 2018-02-20 11:47 | PN ---
Physical Exam: SUBJECTIVE: Unable to obtain to due pt's condition. Pt looks comfortable in bed currently on 6LNC. No acute events overnight. OBJECTIVE: Vital Signs Period Temp Pulse Resp BP Sys/Linares Pulse Ox Last 24 Hr 97.6 F-978 F 66-110 18-20 97-107/43-63 96 GENERAL: Nonverbal, awake, no acute distress HEENT: Microocephalic, atraumatic, PERRL, no scleral icterus, left nostril packing noted, minimal residual blood in back of the throat LUNGS: Diminished breath sounds at the bases, otherwise CTA today, on 6LNC, no accessory muscle use. HEART: RRR, normal S1 and S2 without murmur ABDOMEN: Soft, nontender to palpation, normoactive bowel sounds MUSCULOSKELETAL: Contracted NEUROLOGICAL: Nonverbal, unable to interact or follow commands Laboratory Results - last 24 hr 02/19/18 02/20/18 02/20/18 12:27 05:57 06:15 WBC 9.8 RBC 3.14 L Hgb 10.6 L Hct 31.3 L MCV 99.6 H MCH 33.9 H MCHC 34.0 RDW 15.6 Plt Count 228 D MPV 9.7 Absolute Neuts (auto) 7.0 Neutrophils % 71.9 D Lymphocytes % 18.8 D Monocytes % 7.8 Eosinophils % 1.3 Basophils % 0.2 Nucleated RBC % 0 PT with INR INR Sodium Potassium Chloride Carbon Dioxide Anion Gap BUN Creatinine Creat Clearance w eGFR POC Glucometer 100 115 Random Glucose Calcium Phosphorus Magnesium Total Bilirubin AST ALT Alkaline Phosphatase Total Protein Albumin 02/20/18 02/20/18 06:15 06:15 WBC RBC Hgb Hct MCV MCH MCHC RDW Plt Count MPV Absolute Neuts (auto) Neutrophils % Lymphocytes % Monocytes % Eosinophils % Basophils % Nucleated RBC % PT with INR 13.50 H INR 1.14 H Sodium 140 Potassium 3.8 Chloride 104 Carbon Dioxide 28 Anion Gap 8 BUN 5 L Creatinine 0.6 Creat Clearance w eGFR > 60 POC Glucometer Random Glucose 97 Calcium 8.4 L Phosphorus 3.9 Magnesium 2.0 Total Bilirubin 0.2 AST 61 H ALT 69 H Alkaline Phosphatase 272 H Total Protein 7.7 Albumin 2.9 L Active Medications Generic Name Dose Route Start Last Admin Trade Name Freq PRN Reason Stop Dose Admin Acyclovir 400 mg 02/15/18 10:00 02/20/18 11:18 Zovirax Oral Suspension - GT 400 mg BID JORGE Administration Al Hydroxide/Mg Hydroxide 20 ml 02/15/18 10:00 02/20/18 11:17 Mylanta Oral Suspension - GT 20 ml BID JORGE Administration Baclofen 10 mg 02/15/18 10:00 02/20/18 11:17 Lioresal - GT 10 mg BID JORGE Administration Budesonide/Formoterol Fumarate 1 puff 02/15/18 10:00 02/20/18 11:19 Symbicort 160/4.5mcg - IH Not Given BID JORGE Clobazam 5 mg 02/15/18 10:00 02/20/18 11:16 Onfi - GT 5 mg DAILY JORGE Administration Clonazepam 1.5 mg 02/15/18 06:00 02/20/18 05:19 Klonopin - GT 1.5 mg TID JORGE Administration Docusate Sodium 200 mg 02/16/18 10:57 02/17/18 23:22 Colace Liquid - PO 200 mg DAILY PRN Administration CONSTIPATION Dextrose/Sodium Chloride 1,000 mls @ 125 mls/hr 02/16/18 17:57 02/19/18 21:23 D5-Ns - IV Not Given ASDIR JORGE Piperacillin Sod/Tazobactam 50 mls @ 100 mls/hr 02/20/18 11:00 Sod 3.375 gm/ Dextrose IVPB 02/22/18 02:29 Q8H-IV JORGE Protocol Lactobacillus Acidophilus 1 tab 02/15/18 22:00 02/19/18 21:22 Bacid - GT 1 tab HS JORGE Administration Lamotrigine 200 mg 02/15/18 10:00 02/20/18 11:18 Lamictal - GT 200 mg BID JORGE Administration Phenobarbital 45 mg 02/15/18 10:00 02/20/18 11:20 Phenobarbital - GT 45 mg BID JORGE Administration Polyethylene Glycol 17 gm 02/16/18 11:00 02/20/18 11:18 Miralax (For Daily Use) - PO 17 gm BID JORGE Administration Ranitidine HCl 75 mg 02/15/18 10:00 02/20/18 11:19 Zantac Oral Solution - GT 75 mg BID JORGE Administration ASSESSMENT/PLAN: Altered mental status Hx of seizures L anterior epistaxis Lower GI bleed Thrombocytopenia Transaminitis Asthma Herpetic Meningoencephalitis Neuro: Changes possibly due to stress from PNA in pt with existing seizure disorder Continue Lamictal 200mg BID Continue Phenobarbitol 45mg BID Continue Clonazepam 1.5mg TID Continue Clobazam 5mg qDaly Maintain seizure precautions Continue Acyclovir 400mg BID for meningoencephalitis Neurology on board already Pulm: -Continue home meds -Duonebs Q6 -Symbicort BID -Flovent Daily ENT: L anterior epistaxis episode resolved H/H stable at this time Pt already on zosyn Humidify oxygen from [place] ENT previously consulted and have seen pt - continue packing for another 24- 48 hrs then can remove ID: Day / today of antibiotics Continue Zosyn 3.375mg q8h IVPB ID already on board Sputum cultures + for Pseudomonas, Non Lactose fermenting G- Bacilli, Beta hemolytic strep GI: --H/H stable today --GI had been previously consulted --No episodes of BM to assess clots/blood --Continue Protonix 40mg qDaily --Transaminitis already down-trending --RUQ US previously done showing steatosis without other significant findings due to visual limitations Hematology: --Thrombocytopenia resolved --likely previously due to sepsis --will monitor FEN: Fluids: D5 NS @125 cc/hr Electrolytes: No electrolyte abnormalities Nutrition: Osmolyte at 20 cc/hr with 20 cc of free water PPX: DVT - Lovenox on hold due to bleed GI - Protonix 40mg qDaily Dispo: Continue med-surg Case discussed with Dr. Milton Williamson, DO - IM PGY-2 Visit type - Emergency Visit Emergency Visit: Yes ED Registration Date: 02/16/18 Care time: The patient presented to the Emergency Department on the above date and was hospitalized for further evaluation of their emergent condition. - New Patient This patient is new to me today: No - Critical Care Critical Care patient: No
--- NOTE | 2018-02-20 12:18 | PN ---
Teaching Attending Note Name of Resident: Clifford Williamson ATTENDING PHYSICIAN STATEMENT I saw and evaluated the patient. I reviewed the resident's note and discussed the case with the resident. I agree with the resident's findings and plan as documented with exceptions below. SUBJECTIVE: Patient seen and examined. non verbal comfortable. OBJECTIVE: Vital Signs Period Temp Pulse Resp BP Sys/Linares Pulse Ox Last 24 Hr 97.6 F-978 F 66-110 18-20 97-107/43-63 96 Intake & Output 02/17/18 02/18/18 02/19/18 02/20/18 23:59 23:59 23:59 23:59 Intake Total 1000 1175 590 120 Output Total 550 1300 2950 620 Balance 118 -125 -4808 -500 General: sitting in bed in no acute distress HEENT: left nasal packing, no active bleed Chest: decreased effort, improved coarse rhonchi, comfortable, less tachypneic Abdomen:soft, NT Extremities: contractures Active Medications Acyclovir (Zovirax Oral Suspension -) 400 mg GT BID [facility] Last Admin: 02/20/18 11:18 Dose: 400 mg Al Hydroxide/Mg Hydroxide (Mylanta Oral Suspension -) 20 ml GT BID [facility] Last Admin: 02/20/18 11:17 Dose: 20 ml Baclofen (Lioresal -) 10 mg GT BID [facility] Last Admin: 02/20/18 11:17 Dose: 10 mg Budesonide/Formoterol Fumarate (Symbicort 160/4.5mcg -) 1 puff IH BID [facility] Last Admin: 02/20/18 11:19 Dose: Not Given Clobazam (Onfi -) 5 mg GT DAILY [facility] Last Admin: 02/20/18 11:16 Dose: 5 mg Clonazepam (Klonopin -) 1.5 mg GT TID [facility] Last Admin: 02/20/18 05:19 Dose: 1.5 mg Docusate Sodium (Colace Liquid -) 200 mg PO DAILY PRN PRN Reason: CONSTIPATION Last Admin: 02/17/18 23:22 Dose: 200 mg Dextrose/Sodium Chloride (D5-Ns -) 1,000 mls @ 125 mls/hr IV ASDIR [facility] Last Admin: 02/19/18 21:23 Dose: Not Given Piperacillin Sod/Tazobactam (Sod 3.375 gm/ Dextrose) 50 mls @ 100 mls/hr IVPB Q8H-IV JORGE; Protocol Stop: 02/22/18 02:29 Lactobacillus Acidophilus (Bacid -) 1 tab GT HS [facility] Last Admin: 02/19/18 21:22 Dose: 1 tab Lamotrigine (Lamictal -) 200 mg GT BID [facility] Last Admin: 02/20/18 11:18 Dose: 200 mg Phenobarbital (Phenobarbital -) 45 mg GT BID [facility] Last Admin: 02/20/18 11:20 Dose: 45 mg Polyethylene Glycol (Miralax (For Daily Use) -) 17 gm PO BID [facility] Last Admin: 02/20/18 11:18 Dose: 17 gm Ranitidine HCl (Zantac Oral Solution -) 75 mg GT BID [facility] Last Admin: 02/20/18 11:19 Dose: 75 mg Laboratory Results - last 24 hr 02/19/18 02/20/18 02/20/18 12:27 05:57 06:15 WBC 9.8 RBC 3.14 L Hgb 10.6 L Hct 31.3 L MCV 99.6 H MCH 33.9 H MCHC 34.0 RDW 15.6 Plt Count 228 D MPV 9.7 Absolute Neuts (auto) 7.0 Neutrophils % 71.9 D Lymphocytes % 18.8 D Monocytes % 7.8 Eosinophils % 1.3 Basophils % 0.2 Nucleated RBC % 0 PT with INR INR Sodium Potassium Chloride Carbon Dioxide Anion Gap BUN Creatinine Creat Clearance w eGFR POC Glucometer 100 115 Random Glucose Calcium Phosphorus Magnesium Total Bilirubin AST ALT Alkaline Phosphatase Total Protein Albumin 02/20/18 02/20/18 06:15 06:15 WBC RBC Hgb Hct MCV MCH MCHC RDW Plt Count MPV Absolute Neuts (auto) Neutrophils % Lymphocytes % Monocytes % Eosinophils % Basophils % Nucleated RBC % PT with INR 13.50 H INR 1.14 H Sodium 140 Potassium 3.8 Chloride 104 Carbon Dioxide 28 Anion Gap 8 BUN 5 L Creatinine 0.6 Creat Clearance w eGFR > 60 POC Glucometer Random Glucose 97 Calcium 8.4 L Phosphorus 3.9 Magnesium 2.0 Total Bilirubin 0.2 AST 61 H ALT 69 H Alkaline Phosphatase 272 H Total Protein 7.7 Albumin 2.9 L Microbiology 02/16/18 11:40 Blood - Peripheral Venous Blood Culture - Preliminary NO GROWTH OBTAINED AFTER 96 HOURS, INCUBATION TO CONTINUE FOR 1 DAYS. 02/16/18 11:20 Blood - Peripheral Venous Blood Culture - Preliminary NO GROWTH OBTAINED AFTER 96 HOURS, INCUBATION TO CONTINUE FOR 1 DAYS. 02/16/18 10:10 Sputum - Expectorated Gram Stain - Final 02/16/18 10:10 Sputum - Expectorated Sputum Culture - Preliminary Citrobacter Koseri Pseudomonas Aeruginosa Beta Hemolytic Strep 02/16/18 16:30 Urine For Antigen Detection Legionella Antigen - Final 02/16/18 16:30 Urine For Antigen Detection Streptococcus pneumoniae Antigen (M - Final 02/16/18 16:45 Nasopharyngeal Swab Influenza Types A,B Antigen - Final 02/16/18 16:45 Nasopharyngeal Swab - Final ASSESSMENT AND PLAN: 22yo M with PMH MR, CP, herpetic mengioencephalitis and asthma presented to the ER with hypoxia and hypotensive after seizure episode. as per Aid yesterday he has been more lethargic for the past 2 weeks -Sepsis with multifocal PNA, suspect aspiration -Acute toxic metabolic encephalopathy,likely from above -Epitaxis -Hematochezia, ?diverticular vs haemorrhoidal, less likely upper GI -Transaminitis, known from prior -Acute thrombocytopenia, likely from sepsis -Seizure -Acute hypoxic respiratory distress -Hematuria -Cerebral palsy -Asthma Plan: Left nasal rhinorocket placed, hemostasis achieved. Humidified oxygen. h/h stable, ENT input appreciated. No further concerns for bloody stools. GI input noted. Titrate tube feeds up to goal. Lovenox on hold for now. Zosyn day 6/, ID input noted. Sputum cx noted. Blood cx/Flu swab/PNA studies neg. IVF. Platelets/LFTs improved. Spleen US noted. Trend for now. coags noted Neurology input noted, Lamictal levels noted. DVTPPX lovenox on hold as above Dispo pending clinical improvement, to Bernard in 48 hours if no new concerns. Plan discussed with nursing at bedside, all questions answered.
--- NOTE | 2018-02-20 12:54 | RAPID ---
Physical Examination Vital Signs: Vital Signs Temperature 99.4 F 02/20/18 10:00 Pulse Rate 76 02/20/18 10:00 Respiratory Rate 18 02/20/18 10:00 Blood Pressure 105/44 L 02/20/18 10:00 O2 Sat by Pulse Oximetry (%) 95 02/20/18 09:00 Labs: CBC, BMP 02/20/18 06:15 02/20/18 06:15 Rapid Response - Rapid Response Assessment: Rapid response called at 12:45pm. As per nursing, patient reported to be "breathing differently". VS: BP 107/65, O2 sat 98% at venti mask 50%, MI 114 General: Nonverbal, awake, no acute distress Lungs: Diminished breath sounds at the bases, otherwise CTA, on 50% venti mask, no accessory muscle use. HEART: RRR, normal S1 and S2 without murmur Chest xray ordered stat IV access
[2018-02-20] MEDS ORDERED: DEXTROSE 5%-WATER - 50 ML IVPB ONE ×2 (14:29→17:32)
[2018-02-20] MEDS ORDERED: PIPERACILLIN/TAZOBACTAM 3.375 GM VIAL IVPB ONE ×2 (14:29→17:32)
[2018-02-20] MEDS: DEXTROSE 5%-NORMAL SALINE 1,000 ML IV SCH ×3 (14:38→18:02)
[2018-02-20] MEDS: PIPERACILLIN/TAZOB 3.375 GM 3.375 GM in DEXTROSE 5%-WATER - 50 ML IVPB SCH ×2 (14:41→18:04)
[2018-02-20] MEDS ORDERED: ACETAMINOPHEN 1000 MG/100 ML VIAL (NON FORMULARY) IVPB ONE (19:00)
--- NOTE | 2018-02-20 19:15 | PN ---
Progress Note, Physician History of Present Illness: Pt without distress. ENT consult noted. Pt with nasal packing, no current bleed noted. Pt is nonverbal. - Current Medication List Current Medications: Active Medications Acyclovir (Zovirax Oral Suspension -) 400 mg GT BID [facility] Last Admin: 02/20/18 11:18 Dose: 400 mg Al Hydroxide/Mg Hydroxide (Mylanta Oral Suspension -) 20 ml GT BID [facility] Last Admin: 02/20/18 11:17 Dose: 20 ml Baclofen (Lioresal -) 10 mg GT BID [facility] Last Admin: 02/20/18 11:17 Dose: 10 mg Budesonide/Formoterol Fumarate (Symbicort 160/4.5mcg -) 1 puff IH BID [facility] Last Admin: 02/20/18 11:19 Dose: Not Given Clobazam (Onfi -) 5 mg GT DAILY [facility] Last Admin: 02/20/18 11:16 Dose: 5 mg Clonazepam (Klonopin -) 1.5 mg GT TID [facility] Last Admin: 02/20/18 14:42 Dose: 1.5 mg Docusate Sodium (Colace Liquid -) 200 mg PO DAILY PRN PRN Reason: CONSTIPATION Last Admin: 02/17/18 23:22 Dose: 200 mg Dextrose/Sodium Chloride (D5-Ns -) 1,000 mls @ 125 mls/hr IV ASDIR [facility]ORGE Last Admin: 02/20/18 18:02 Dose: Not Given Piperacillin Sod/Tazobactam (Sod 3.375 gm/ Dextrose) 50 mls @ 100 mls/hr IVPB Q8H-IV JORGE; Protocol Stop: 02/22/18 02:29 Last Admin: 02/20/18 18:04 Dose: 100 mls/hr Lactobacillus Acidophilus (Bacid -) 1 tab GT HS [facility] Last Admin: 02/19/18 21:22 Dose: 1 tab Lamotrigine (Lamictal -) 200 mg GT BID [facility] Last Admin: 02/20/18 11:18 Dose: 200 mg Phenobarbital (Phenobarbital -) 45 mg GT BID [facility] Last Admin: 02/20/18 11:20 Dose: 45 mg Polyethylene Glycol (Miralax (For Daily Use) -) 17 gm PO BID [facility] Last Admin: 02/20/18 11:18 Dose: 17 gm Ranitidine HCl (Zantac Oral Solution -) 75 mg GT BID [facility] Last Admin: 02/20/18 11:19 Dose: 75 mg - Objective Vital Signs: Vital Signs Temperature 101.4 F H 02/20/18 18:50 Pulse Rate 76 02/20/18 10:00 Respiratory Rate 18 02/20/18 10:00 Blood Pressure 105/44 L 02/20/18 10:00 O2 Sat by Pulse Oximetry (%) 95 02/20/18 09:00 Constitutional: Yes: No Distress Cardiovascular: Yes: Regular Rate and Rhythm Respiratory: Yes: Other (coarse BS) Gastrointestinal: Yes: Normal Bowel Sounds, Soft Genitourinary: Yes: WNL Neurological: Yes: Other (nonverbal) Labs: CBC, BMP 02/20/18 06:15 02/20/18 06:15 INR, PTT INR 1.14 (0.83-1.09) H 02/20/18 06:15 Microbiology 02/16/18 10:10 Sputum - Expectorated Gram Stain - Final 02/16/18 10:10 Sputum - Expectorated Sputum Culture - Final Citrobacter Koseri Pseudomonas Aeruginosa 02/16/18 11:40 Blood - Peripheral Venous Blood Culture - Preliminary NO GROWTH OBTAINED AFTER 96 HOURS, INCUBATION TO CONTINUE FOR 1 DAYS. 02/16/18 11:20 Blood - Peripheral Venous Blood Culture - Preliminary NO GROWTH OBTAINED AFTER 96 HOURS, INCUBATION TO CONTINUE FOR 1 DAYS. 02/16/18 16:30 Urine For Antigen Detection Legionella Antigen - Final 02/16/18 16:30 Urine For Antigen Detection Streptococcus pneumoniae Antigen (M - Final 02/16/18 16:45 Nasopharyngeal Swab Influenza Types A,B Antigen - Final 02/16/18 16:45 Nasopharyngeal Swab - Final - ....Imaging Chest X-ray: Report Reviewed Problem List - Problems (1) Altered mental status Code(s): R41.82 - ALTERED MENTAL STATUS, UNSPECIFIED Qualifiers: Altered mental status type: unspecified Qualified Code(s): R41.82 - Altered mental status, unspecified (2) Nasal bleeding Code(s): R04.0 - EPISTAXIS (3) Acute and chronic respiratory failure with hypoxia Code(s): J96.21 - ACUTE AND CHRONIC RESPIRATORY FAILURE WITH HYPOXIA (4) Pneumonia Code(s): J18.9 - PNEUMONIA, UNSPECIFIED ORGANISM Qualifiers: Pneumonia type: due to unspecified organism (5) Seizure Code(s): R56.9 - UNSPECIFIED CONVULSIONS (6) Sepsis Code(s): A41.9 - SEPSIS, UNSPECIFIED ORGANISM Qualifiers: Sepsis type: sepsis due to unspecified organism Qualified Code(s): A41.9 - Sepsis, unspecified organism (7) Profound mental retardation Code(s): F73 - PROFOUND INTELLECTUAL DISABILITIES Assessment/Plan -- will d/c Zosyn after tomorrow's doses -- pt currently without acute distress, afebrile cont. current management
[2018-02-20] MEDS: LACTOBACILLUS ACIDOPHILUS 1 TABLET GT SCH (21:55)
[2018-02-21] MEDS ORDERED: DEXTROSE 5%-WATER - 50 ML IVPB ONE ×3 (01:23→17:27)
[2018-02-21] MEDS ORDERED: PIPERACILLIN/TAZOBACTAM 3.375 GM VIAL IVPB ONE ×3 (01:23→17:27)
[2018-02-21] MEDS: PIPERACILLIN/TAZOB 3.375 GM 3.375 GM in DEXTROSE 5%-WATER - 50 ML IVPB SCH ×3 (01:35→18:12)
[2018-02-21] MEDS: DEXTROSE 5%-NORMAL SALINE 1,000 ML IV SCH ×3 (01:35→18:20)
[2018-02-21] MEDS: clonazePAM 0.5 MG TABLET GT SCH ×3 (05:55→22:05)
[2018-02-21] MEDS: MAG HYDROX/AL HYDROX/SIMETH 30 ML UNIT-DOSE CUP GT SCH ×2 (11:33→22:05)
[2018-02-21] MEDS: PHENobarbital 30 MG TABLET GT SCH ×2 (11:34→22:06)
[2018-02-21] MEDS: cloBAZam 10 MG TABLET GT SCH (11:35)
[2018-02-21] MEDS: POLYETHYLENE GLYCOL 3350 119 GM BTL PO SCH ×2 (11:36→22:08)
[2018-02-21] MEDS: BACLOFEN 10 MG TABLET (FP) GT SCH ×2 (11:36→22:05)
[2018-02-21] MEDS: RANITIDINE HCL 150 MG/10 ML UNIT-DOSE GT SCH ×2 (11:37→22:04)
[2018-02-21] MEDS: BUDESONIDE/FORMETEROL FUMARATE 160/4.5 mcg INHALER IH SCH ×2 (11:37→22:13)
[2018-02-21] MEDS: MULTIVIT-MINERALS ORAL LIQUID GT SCH (11:52)
[2018-02-21] MEDS: ACYCLOVIR 200 MG/5 ML LIQUID GT SCH ×2 (11:52→22:04)
[2018-02-21] MEDS: lamoTRIgine 100 MG TABLET (FP) GT SCH ×2 (11:55→22:05)
--- NOTE | 2018-02-21 14:33 | PN ---
Physical Exam: SUBJECTIVE: Patient seen and examined, non verbal, comfortable OBJECTIVE: Vital Signs Period Temp Pulse Resp BP Sys/Linares Pulse Ox Last 24 Hr 99 F-101.4 F 72-94 18-20 92-124/42-61 96-96 GENERAL: no tachypnea, comfortable HEENT: left nasal packing, no active bleed Chest: poor effort, markedly improved coarse rales Abdomen:Soft, distended, positive bowel sounds, PEG in place, no grimacing noted on palpation Extremities: contractures Laboratory Results - last 24 hr 02/20/18 17:09 POC Glucometer 120 Active Medications Generic Name Dose Route Start Last Admin Trade Name Freq PRN Reason Stop Dose Admin Acyclovir 400 mg 02/15/18 10:00 02/21/18 11:52 Zovirax Oral Suspension - GT 400 mg BID JORGE Administration Al Hydroxide/Mg Hydroxide 20 ml 02/15/18 10:00 02/21/18 11:33 Mylanta Oral Suspension - GT 20 ml BID JORGE Administration Baclofen 10 mg 02/15/18 10:00 02/21/18 11:36 Lioresal - GT 10 mg BID JORGE Administration Budesonide/Formoterol Fumarate 1 puff 02/15/18 10:00 02/21/18 11:37 Symbicort 160/4.5mcg - IH Not Given BID JORGE Clobazam 5 mg 02/15/18 10:00 02/21/18 11:35 Onfi - GT 5 mg DAILY JORGE Administration Clonazepam 1.5 mg 02/15/18 06:00 02/21/18 05:55 Klonopin - GT 1.5 mg TID JORGE Administration Docusate Sodium 200 mg 02/16/18 10:57 02/17/18 23:22 Colace Liquid - PO 200 mg DAILY PRN Administration CONSTIPATION Dextrose/Sodium Chloride 1,000 mls @ 125 mls/hr 02/16/18 17:57 02/21/18 09:13 D5-Ns - IV 125 mls/hr ASDIR JORGE Administration Piperacillin Sod/Tazobactam 50 mls @ 100 mls/hr 02/20/18 11:00 02/21/18 11:33 Sod 3.375 gm/ Dextrose IVPB 02/22/18 02:29 100 mls/hr Q8H-IV JORGE Administration Protocol Lactobacillus Acidophilus 1 tab 02/15/18 22:00 02/20/18 21:55 Bacid - GT 1 tab HS JORGE Administration Lamotrigine 200 mg 02/15/18 10:00 02/21/18 11:55 Lamictal - GT 200 mg BID JORGE Administration Phenobarbital 45 mg 02/15/18 10:00 02/21/18 11:34 Phenobarbital - GT 45 mg BID JORGE Administration Polyethylene Glycol 17 gm 02/16/18 11:00 02/21/18 11:36 Miralax (For Daily Use) - PO 17 gm BID JORGE Administration Ranitidine HCl 75 mg 02/15/18 10:00 02/21/18 11:37 Zantac Oral Solution - GT 75 mg BID JORGE Administration ASSESSMENT/PLAN: 22yo M with PMH MR, CP, herpetic mengioencephalitis and asthma presented to the ER with hypoxia and hypotensive after seizure episode. as per Aid yesterday he has been more lethargic for the past 2 weeks -Sepsis with multifocal PNA, suspect aspiration -Acute toxic metabolic encephalopathy,likely from above -Epitaxis -Hematochezia, ?diverticular vs haemorrhoidal, less likely upper GI -Transaminitis, known from prior -Acute thrombocytopenia, likely from sepsis -Seizure -Acute hypoxic respiratory distress -Hematuria -Cerebral palsy -Asthma Plan: Fevers overnight. Respiratory status stable. Zosyn day 7, continue per ID. Sputum cx noted. Blood cx/Flu swab/PNA studies neg. Abdomen Xray noted. check CT A/p. Hold tube feeds till then. Epistaxis resolved, d/c nasal packing in 24 hours. h/h stable, ENT input appreciated. No further concerns for bloody stools. GI input noted. Tube feeds on hold till CT A/P above. D5NS IVF. BGM q6h. Platelets/LFTs improved. Spleen US noted. Trend for now. coags noted Neurology input noted, Lamictal levels noted. DVTPPX resume lovenox in 24hours if h/h stable and no concerns of bleed or acute process on abdominal imaging or new neg bleed Plan discussed with nursing at bedside, all questions answered. Visit type - Emergency Visit Emergency Visit: Yes ED Registration Date: 02/16/18 Care time: The patient presented to the Emergency Department on the above date and was hospitalized for further evaluation of their emergent condition. - New Patient This patient is new to me today: No - Critical Care Critical Care patient: No - Discharge Referral Referred to [facility] Med [facility] No
--- NOTE | 2018-02-21 18:53 | PN ---
Progress Note, Physician History of Present Illness: Pt noted to have fever of 101.4F last night and low grade fevers today. He does not appear to be in distress. Nasal packing in place. - Current Medication List Current Medications: Active Medications Acyclovir (Zovirax Oral Suspension -) 400 mg GT BID [facility] Last Admin: 02/21/18 11:52 Dose: 400 mg Al Hydroxide/Mg Hydroxide (Mylanta Oral Suspension -) 20 ml GT BID [facility] Last Admin: 02/21/18 11:33 Dose: 20 ml Baclofen (Lioresal -) 10 mg GT BID [facility] Last Admin: 02/21/18 11:36 Dose: 10 mg Budesonide/Formoterol Fumarate (Symbicort 160/4.5mcg -) 1 puff IH BID [facility] Last Admin: 02/21/18 11:37 Dose: Not Given Clobazam (Onfi -) 5 mg GT DAILY [facility] Last Admin: 02/21/18 11:35 Dose: 5 mg Clonazepam (Klonopin -) 1.5 mg GT TID [facility] Last Admin: 02/21/18 15:29 Dose: 1.5 mg Docusate Sodium (Colace Liquid -) 200 mg PO DAILY PRN PRN Reason: CONSTIPATION Last Admin: 02/17/18 23:22 Dose: 200 mg Dextrose/Sodium Chloride (D5-Ns -) 1,000 mls @ 125 mls/hr IV ASDIR [facility] Last Admin: 02/21/18 18:20 Dose: 125 mls/hr Piperacillin Sod/Tazobactam (Sod 3.375 gm/ Dextrose) 50 mls @ 100 mls/hr IVPB Q8H-IV [facility]; Protocol Stop: 02/22/18 02:29 Last Admin: 02/21/18 18:12 Dose: 100 mls/hr Lactobacillus Acidophilus (Bacid -) 1 tab GT HS [facility] Last Admin: 02/20/18 21:55 Dose: 1 tab Lamotrigine (Lamictal -) 200 mg GT BID [facility] Last Admin: 02/21/18 11:55 Dose: 200 mg Phenobarbital (Phenobarbital -) 45 mg GT BID [facility] Last Admin: 02/21/18 11:34 Dose: 45 mg Polyethylene Glycol (Miralax (For Daily Use) -) 17 gm PO BID [facility] Last Admin: 02/21/18 11:36 Dose: 17 gm Ranitidine HCl (Zantac Oral Solution -) 75 mg GT BID [facility] Last Admin: 02/21/18 11:37 Dose: 75 mg - Objective Vital Signs: Vital Signs Temperature 98.2 F 02/21/18 18:00 Pulse Rate 70 02/21/18 18:00 Respiratory Rate 18 02/21/18 18:00 Blood Pressure 103/51 L 02/21/18 18:00 O2 Sat by Pulse Oximetry (%) 96 02/21/18 09:00 Constitutional: Yes: No Distress, Other (nonverbal) Cardiovascular: Yes: Regular Rate and Rhythm Respiratory: Yes: Other (b/l air entry, coarse) Gastrointestinal: Yes: Normal Bowel Sounds, Soft, Other (peg) Genitourinary: Yes: Lane Present Musculoskeletal: Yes: Other (contracted) Integumentary: Yes: WNL Labs: CBC, BMP 02/20/18 06:15 02/20/18 06:15 INR, PTT INR 1.14 (0.83-1.09) H 02/20/18 06:15 - ....Imaging Chest X-ray: Report Reviewed X-ray: Report Reviewed Cat Scan: Pending Problem List - Problems (1) Altered mental status Code(s): R41.82 - ALTERED MENTAL STATUS, UNSPECIFIED Qualifiers: Altered mental status type: unspecified Qualified Code(s): R41.82 - Altered mental status, unspecified (2) Nasal bleeding Code(s): R04.0 - EPISTAXIS (3) Acute and chronic respiratory failure with hypoxia Code(s): J96.21 - ACUTE AND CHRONIC RESPIRATORY FAILURE WITH HYPOXIA (4) Pneumonia Code(s): J18.9 - PNEUMONIA, UNSPECIFIED ORGANISM Qualifiers: Pneumonia type: due to unspecified organism (5) Seizure Code(s): R56.9 - UNSPECIFIED CONVULSIONS (6) Sepsis Code(s): A41.9 - SEPSIS, UNSPECIFIED ORGANISM Qualifiers: Sepsis type: sepsis due to unspecified organism Qualified Code(s): A41.9 - Sepsis, unspecified organism (7) Profound mental retardation Code(s): F73 - PROFOUND INTELLECTUAL DISABILITIES Assessment/Plan PNA/likely Aspiration Epistaxis - nasal packing FEVER - etilogy unclear r/o bowel obstruction -- pt with fevers since last night -- Imaging results noted: CXR without obvious acute process, Abd Xray with dilated bowel loops -- no BMs in past 3 days -- CT Abd/Pelvis pending -- Blood cultures ordered, repeat cbc/cmp -- cont. Zosyn, will start Vancomycin IV for now to broaden coverage until source identified monitor wbc/temp trend will f/u
[2018-02-21] MEDS: VANCOMYCIN 1 GRAM (PRE-DOCKED) 1,000 MG/250 ML BAG IVPB SCH (21:03)
[2018-02-21] MEDS: LACTOBACILLUS ACIDOPHILUS 1 TABLET GT SCH (22:05)
[2018-02-22] MEDS ORDERED: DEXTROSE 5%-WATER - 50 ML IVPB ONE ×2 (01:48→18:38)
[2018-02-22] MEDS ORDERED: PIPERACILLIN/TAZOBACTAM 3.375 GM VIAL IVPB ONE ×2 (01:48→18:37)
[2018-02-22] MEDS: PIPERACILLIN/TAZOB 3.375 GM 3.375 GM in DEXTROSE 5%-WATER - 50 ML IVPB SCH ×2 (02:48→18:41)
[2018-02-22] MEDS: VANCOMYCIN 1 GRAM (PRE-DOCKED) 1,000 MG/250 ML BAG IVPB SCH ×2 (06:03→18:43)
[2018-02-22] MEDS: clonazePAM 0.5 MG TABLET GT SCH ×3 (06:04→22:19)
[2018-02-22 06:40] LABS: BASO % 0.4 % (0-2.0); EOS % 0.5 % (0-4.5); HEMOGLOBIN 9.3 GM/dL (11.7-16.9); LYMPH % 21.1 % (8-40); MCH 34.7 pg (25.7-33.7); MCHC 34.5 g/dl (32.0-35.9); MEAN CELL VOLUME 100.7 fl (80-96); MEAN PLT VOLUME 8.3 fl (7.5-11.1); MONO % 10.3 % (3.8-10.2); NEUT % 67.7 % (42.8-82.8); PLATELET COUNT 358 K/MM3 (134-434); RBC 2.68 M/mm3 (4.00-5.60); RDW 15.3 % (11.9-15.9); WHITE BLOOD COUNT 8.2 K/mm3 (4.0-10.0)
[2018-02-22 07:15] LABS: ALBUMIN 2.3 g/dl (3.4-5.0); ALK PHOS 200 U/L (45-117); ANION GAP 6 MMOL/L (8-16); BILIRUBIN,TOTAL 0.8 mg/dL (0.2-1); BLOOD UREA NITROGEN 4 mg/dL (7-18); CHLORIDE 110 mmol/L (98-107); CO2 27 mmol/L (21-32); CREATININE 0.4 mg/dL (0.55-1.3); GLUCOSE,RANDOM 113 mg/dL (74-106); MAGNESIUM 1.8 mg/dL (1.8-2.4); POTASSIUM 3.2 mmol/L (3.5-5.1); SGOT/AST 35 U/L (15-37); SGPT/ALT 51 U/L (13-61); SODIUM 144 mmol/L (136-145); TOT PROT 6.2 g/dl (6.4-8.2)
[2018-02-22] MEDS ORDERED: BISACODYL 10 MG SUPP.RECT PR ONE (08:56)
--- NOTE | 2018-02-22 08:59 | PN ---
Teaching Attending Note Name of Resident: Hallie Guillen ATTENDING PHYSICIAN STATEMENT I saw and evaluated the patient. I reviewed the resident's note and discussed the case with the resident. I agree with the resident's findings and plan as documented with exceptions below. SUBJECTIVE: patient seen and examined. non verbal. OBJECTIVE: Vital Signs Period Temp Pulse Resp BP Sys/Linares Pulse Ox Last 24 Hr 96.2 F-99 F 68-82 18-20 89-107/42-66 92-96 Intake & Output 02/19/18 02/20/18 02/21/18 02/22/18 23:59 23:59 23:59 23:59 Intake Total 110 076 4734 1075 Output Total 2950 1620 1400 700 Balance -2360 -950 1075 375 general: lying in bed in no acute distress Chest: poor effort, but no rales or wheezing, positive air entry Abdomen:soft, distended, positive bowel sounds, no voluntary or involuntary guarding or rigidity Extremities: contractures HEENT: mild serosanguinous oozing from left nare Active Medications Acyclovir (Zovirax Oral Suspension -) 400 mg GT BID [facility] Last Admin: 02/21/18 22:04 Dose: 400 mg Al Hydroxide/Mg Hydroxide (Mylanta Oral Suspension -) 20 ml GT BID [facility] Last Admin: 02/21/18 22:05 Dose: 20 ml Baclofen (Lioresal -) 10 mg GT BID [facility] Last Admin: 02/21/18 22:05 Dose: 10 mg Budesonide/Formoterol Fumarate (Symbicort 160/4.5mcg -) 1 puff IH BID [facility] Last Admin: 02/21/18 22:13 Dose: 1 puff Clobazam (Onfi -) 5 mg GT DAILY [facility] Last Admin: 02/21/18 11:35 Dose: 5 mg Clonazepam (Klonopin -) 1.5 mg GT TID [facility] Last Admin: 02/22/18 06:04 Dose: 1.5 mg Docusate Sodium (Colace Liquid -) 200 mg PO DAILY PRN PRN Reason: CONSTIPATION Last Admin: 02/17/18 23:22 Dose: 200 mg Dextrose/Sodium Chloride (D5-Ns -) 1,000 mls @ 125 mls/hr IV ASDIR [facility] Last Admin: 02/21/18 18:20 Dose: 125 mls/hr Vancomycin HCl (Vancomycin (Pre-Docked)) 1,000 mg in 250 mls @ 166.667 mls/hr IVPB BID@0700,1900 [facility]; Protocol Last Admin: 02/22/18 06:03 Dose: 166.667 mls/hr Lactobacillus Acidophilus (Bacid -) 1 tab GT HS [facility] Last Admin: 02/21/18 22:05 Dose: 1 tab Lamotrigine (Lamictal -) 200 mg GT BID [facility] Last Admin: 02/21/18 22:05 Dose: 200 mg Phenobarbital (Phenobarbital -) 45 mg GT BID [facility] Last Admin: 02/21/18 22:06 Dose: 45 mg Polyethylene Glycol (Miralax (For Daily Use) -) 17 gm PO BID [facility] Last Admin: 02/21/18 22:08 Dose: 17 gm Ranitidine HCl (Zantac Oral Solution -) 75 mg GT BID [facility] Last Admin: 02/21/18 22:04 Dose: 75 mg Laboratory Results - last 24 hr 02/22/18 02/22/18 06:00 06:00 WBC 8.2 RBC 2.68 L Hgb 9.3 L Hct 27.0 L MCV 100.7 H MCH 34.7 H MCHC 34.5 RDW 15.3 Plt Count 358 D MPV 8.3 D Absolute Neuts (auto) 5.5 Neutrophils % 67.7 Lymphocytes % 21.1 Monocytes % 10.3 H Eosinophils % 0.5 Basophils % 0.4 Nucleated RBC % 0 Sodium 144 Potassium 3.2 L Chloride 110 H Carbon Dioxide 27 Anion Gap 6 L BUN 4 L Creatinine 0.4 L Creat Clearance w eGFR > 60 Random Glucose 113 H Calcium 8.0 L Phosphorus 3.0 Magnesium 1.8 Total Bilirubin 0.8 AST 35 ALT 51 Alkaline Phosphatase 200 H Total Protein 6.2 L [address]in [address] A/P : ASSESSMENT AND PLAN: 22yo M with PMH MR, CP, herpetic mengioencephalitis and asthma presented to the ER with hypoxia and hypotensive after seizure episode. as per Aid yesterday he has been more lethargic for the past 2 weeks -Severe fecal retention with pseudo-obstruction -Sepsis with multifocal PNA, suspect aspiration -Acute toxic metabolic encephalopathy,likely from above -Epitaxis -Hematochezia, ?diverticular vs haemorrhoidal, less likely upper GI -Severe constipation/pseudoobtruction -Transaminitis, known from prior -Acute thrombocytopenia, likely from sepsis -Seizure -Acute hypoxic respiratory distress -Hematuria -Cerebral palsy -Asthma Plan: CT A/P noted. enema x1, 2 large BM this AM Surgery input noted. Bowel prep slowly through peg. Continue miralax/colace. Resume tube feeds once constipation improved. No further fevers. ID input noted. zosyn day 8, started on vancomycin day 2. d/cvanco in 24 hours. Sputum cx noted. Blood cx/Flu swab/PNA studies neg. Epistaxis resolved, d/c nasal packing. afrin spray. ENT input appreciated h/h stable. No further concerns for bloody stools. GI input noted. D5NS IVF. BGM q6h while NPO. Platelets/LFTs improved. Spleen US noted. Trend for now. coags noted Neurology input noted, Lamictal levels noted. DVTPPX resume lovenox in 24hours if h/h stable and no concerns of bleed or acute process on abdominal imaging or new neg bleed Plan discussed with nursing at bedside, all questions answered.
[2018-02-22] MEDS ORDERED: PT OWN MED DRAWER 7, Y5N ONE ×3 (09:57→13:54)
--- NOTE | 2018-02-22 09:59 | PN ---
Physical Exam: SUBJECTIVE: Patient seen and examined this AM. He is resting comfortably and smiling. No acute bleeding noted overnight. OBJECTIVE: Vital Signs Period Temp Pulse Resp BP Sys/Linares Pulse Ox Last 24 Hr 96.2 F-99 F 68-82 18-18 89-107/42-66 92-94 GENERAL: Nonverbal, awake but not alert, no acute distress, smiling today HEAD: Microocephalic, atraumatic. EYES: PERRL, no scleral icterus EARS, NOSE, THROAT: No acute bleeding noted. Nasal packing removed without any new signs of bleeding, oropharynx clear without blood LUNGS: Poor inspiratory effort, mild diffuse rhonchi HEART: Regular rate and rhythm, normal S1 and S2 without murmur ABDOMEN: Soft, nontender to palpation, normoactive bowel sounds MUSCULOSKELETAL: Contracted extremities NEUROLOGICAL: Nonverbal, unable to interact or follow commands Laboratory Results - last 24 hr 02/22/18 02/22/18 06:00 06:00 WBC 8.2 RBC 2.68 L Hgb 9.3 L Hct 27.0 L MCV 100.7 H MCH 34.7 H MCHC 34.5 RDW 15.3 Plt Count 358 D MPV 8.3 D Absolute Neuts (auto) 5.5 Neutrophils % 67.7 Lymphocytes % 21.1 Monocytes % 10.3 H Eosinophils % 0.5 Basophils % 0.4 Nucleated RBC % 0 Sodium 144 Potassium 3.2 L Chloride 110 H Carbon Dioxide 27 Anion Gap 6 L BUN 4 L Creatinine 0.4 L Creat Clearance w eGFR > 60 Random Glucose 113 H Calcium 8.0 L Phosphorus 3.0 Magnesium 1.8 Total Bilirubin 0.8 AST 35 ALT 51 Alkaline Phosphatase 200 H Total Protein 6.2 L Albumin 2.3 L Active Medications Generic Name Dose Route Start Last Admin Trade Name Freq PRN Reason Stop Dose Admin Acyclovir 400 mg 02/15/18 10:00 02/21/18 22:04 Zovirax Oral Suspension - GT 400 mg BID [facility] Administration Al Hydroxide/Mg Hydroxide 20 ml 02/15/18 10:00 02/21/18 22:05 Mylanta Oral Suspension - GT 20 ml BID [facility] Administration Baclofen 10 mg 02/15/18 10:00 02/21/18 22:05 Lioresal - GT 10 mg BID [facility] Administration Budesonide/Formoterol Fumarate 1 puff 02/15/18 10:00 02/21/18 22:13 Symbicort 160/4.5mcg - IH 1 puff BID [facility] Administration Clobazam 5 mg 02/15/18 10:00 02/21/18 11:35 Onfi - GT 5 mg DAILY [facility] Administration Clonazepam 1.5 mg 02/15/18 06:00 02/22/18 06:04 Klonopin - GT 1.5 mg TID [facility] Administration Docusate Sodium 200 mg 02/16/18 10:57 02/17/18 23:22 Colace Liquid - PO 200 mg DAILY PRN Administration CONSTIPATION Dextrose/Sodium Chloride 1,000 mls @ 125 mls/hr 02/16/18 17:57 02/21/18 18:20 D5-Ns - IV 125 mls/hr ASDIR [facility] Administration Vancomycin HCl 1,000 mg in 250 mls @ 166.667 mls/hr 02/21/18 19:00 02/22/18 06:03 Vancomycin (Pre-Docked) IVPB 166.667 mls/hr BID@0700,1900 [facility] Administration Protocol Potassium Chloride 10 meq in 100 mls @ 100 mls/hr 02/22/18 10:00 Potassium Chloride 10 Meq Premix Ivpb - IVPB 02/22/18 11:59 Q60M [facility] Lactobacillus Acidophilus 1 tab 02/15/18 22:00 02/21/18 22:05 Bacid - GT 1 tab HS [facility] Administration Lamotrigine 200 mg 02/15/18 10:00 02/21/18 22:05 Lamictal - GT 200 mg BID [facility] Administration Phenobarbital 45 mg 02/15/18 10:00 02/21/18 22:06 Phenobarbital - GT 45 mg BID [facility] Administration Polyethylene Glycol 17 gm 02/16/18 11:00 02/21/18 22:08 Miralax (For Daily Use) - PO 17 gm BID [facility] Administration Ranitidine HCl 75 mg 02/15/18 10:00 02/21/18 22:04 Zantac Oral Solution - GT 75 mg BID [facility] Administration ASSESSMENT/PLAN: 22 yo Male with PMH of severe MR, cerebral palsy, herpetic meningoencephalitis, and asthma who was sent from [place] for AMS. Change in Mental Status - improving -Possibly due to seizure activity, though likely due to Healthcare Acquired Pneumonia -CXR noted with worsening white out of lung on the left -CT chest: Consolidation with air bronchogram in both lower lobes as well as extensive airspace disease in left upper lobe and patchy airspace disease in RUL consistent with pneumonia -Pt received Zosyn on recent admission for pneumonia -On Vancomycin 1000mg IV BID, Zosyn 3.375 gm IV Q8 -ID consulted, continue current management -Sputum cultures + for Pseudomonas Hx of Seizures -Neurology consult appreciated -Prolactin 31.1 -Resume home medications, Phenobartibol 45 mg GT BID, level 4.4 on admission -Lamictal 200 gm GT BID -Diazepam Rectal gel 10 mg RC PRN for active seizure -Clonazepam 1.5 mg GT TID -Clobazam 5 mg GT QD -Baclofen 10 mg GT BID -Seizure precautions -No need for MRI Nasal Bleeding noted -Pt noted with repeated bleeding from left nare -Humidified O2 -Nasal packing removed -Mucus from nose with minimal blood noted -H/H stable -ENT Consult appreciated -Afrin [place] BID Blood per Rectum/Clots in Stool - resolved -H/H down from admission but stable at 03/09, slow downward trend -Rectal exam without masses or fissures, though minimal blood noted on glove -GI consult appreciated -Coags normal -Resolved Hypoglycemia -D5 NS @ 125 cc/hr -BGMs Q6, notify if > 200 Thrombocytopenia -Likely secondary to sepsis/infection -Splenic US with mild splenomegaly Transaminitis - resolved -Pt commonly with transaminitis on admission -RUQ ultrasound reveals fatty liver with otherwise limited exam -Trend LFTs resolved Asthma -Continue home meds -Duonebs Q6 -Symbicort BID -Flovent Daily Hx Herpetic Meningoencephalitis -Continue home Acyclovir 400 mg GT BID [facility] -Zantac 75 mg GT BID DVT Prophylaxis -Lovenox 40 mg SQ Daily -Hold for bleeding FEN -Fluids: D5 NS @125 cc/hr -Electrolytes: No electrolyte abnormalities, BMP in AM -Nutrition: Hold tube feeds Disposition Med/Surg Visit type - Emergency Visit Emergency Visit: Yes ED Registration Date: 02/16/18 Care time: The patient presented to the Emergency Department on the above date and was hospitalized for further evaluation of their emergent condition. - New Patient This patient is new to me today: No - Critical Care Critical Care patient: No
--- NOTE | 2018-02-22 10:05 | CONSULT ---
Consult Consult Specialty:: General Surgery Reason for Consultation:: fecal impaction - History of Present Illness Chief Complaint: chronic constipation History of Present Illness: 22yo male PMH severe MR, cerebral palsy, herpetic meningoencephalitis, and asthma who was sent from [place] for AMS. According to the health aide, pt is normally active and laughing at baseline. However, pt was found to be altered from baseline and not as active. At [place], patient was witnessed to have an episode of tongue-biting, but it was unclear as to whether a tonic-clonic seizure was noted. At [place], he was found to desaturate to the 80s on room air, and became hypotensive in the 70s/40s. Limited history was given as health aide at bedside was not the same person taking care of the patient at time of episode. CT scan without contrast showe massivly dilated sigmoid colon with signifincat stool burden and fecal impaction causing a functional obstruction. we were called to assess. - History Source History Provided By: Patient, Family Member, Medical Record Limitations to Obtaining History: No Limitations - Past Medical History UNIT AIDE: Yes: Other (Mental retardation, cerebral palsy) Pulmonary: Yes: Asthma Gastrointestinal: Yes: Other (gastrostomy) Infectious Disease: Yes: Herpes Zoster Musculoskeletal: Yes: Other (Functional Qaudraplegic) - Past Surgical History Additional Surgical History: gastrostomy - Alcohol/Substance Use Hx Alcohol Use: No - Smoking History Smoking history: Never smoked Have you smoked in the past 12 months: No Aproximately how many cigarettes per day: 0 - Social History Usual Living Arrangement: [facility] ADL: Support Services Place of : [facility] History of Recent Travel: No Home Medications - Allergies Allergies/Adverse Reactions: Allergies Allergy/AdvReac Type Severity Reaction Status Date / Time No Known Allergies Allergy Verified 02/14/18 18:16 - Home Medications Home Medications: Ambulatory Orders Acyclovir 400 mg GT BID 04/25/17 Baclofen 10 mg GT BID 04/25/17 Benzoyl Peroxide 5% Gel - 1 applic TP BID 04/25/17 Budesonide/Formeterol Fumarate [SYMBICORT 160/4.5mcg -] 1 inh PO BID 04/25/17 Clobazam [Onfi -] 5 mg GT DAILY 04/25/17 Clonazepam 1.5 mg GT TID 04/25/17 Diazepam Rectal Gel [Diastat Rectal Gel -] 10 mg RC PRN PRN 04/25/17 Fluticasone Propionate [Flovent Diskus] 50 mcg IH DAILY 04/25/17 Fructooligosaccharides/Polydex [Fiber-Stat 15 gm/30 ml Liquid] 15 gm GT DAILY Ipratropium/Albuterol Sulfate [Iprat-Albut 0.5-3(2.5) mg/3 ml] 3 ml IH Q6H 04/25 Lactobacillus Acidophilus [Acidophilus] 1 each GT HS 04/25/17 Lamotrigine 200 mg GT BID 04/25/17 Magnesium Hydrox 2400MG/30Ml [Milk of Magnesia -] 20 ml GT BID 04/25/17 Multivitamin [Poly-Vitamin] 1 each GT DAILY 04/25/17 Phenobarbital 48.6 mg GT BID 04/25/17 Ranitidine [Zantac -] 75 mg GT BID 04/25/17 Review of Systems - Review of Systems Constitutional: denies: Chills, Fever Eyes: denies: Blind Spots, Recent Change in Vision HENT: denies: Difficult Swallowing, Throat Pain Neck: denies: Pain on Movement, Swollen Glands Cardiovascular: denies: Chest Pain, Palpitations Respiratory: reports: Cough. denies: Orthopnea, SOB Gastrointestinal: denies: Abdominal Pain, Vomiting Genitourinary: denies: Discharge, Dysuria Breasts: reports: No Symptoms Reported. denies: Pain Musculoskeletal: reports: Muscle Weakness, Other (contracted in fectal postion) Integumentary: denies: Rash, Wound Neurological: reports: Confusion. denies: Change in LOC, Syncope Endocrine: denies: Unexplained Weight Gain, Unexplained Weight Loss Hematology/Lymphatic: denies: Easily Bruised, Excessive Bleeding Psychiatric: denies: Anxiety, Depression Physical Exam Vital Signs: Vital Signs Temperature 96.2 F L 02/22/18 08:31 Pulse Rate 75 02/22/18 08:31 Respiratory Rate 18 02/22/18 08:31 Blood Pressure 107/66 02/22/18 08:31 O2 Sat by Pulse Oximetry (%) 92 L 02/22/18 08:22 Constitutional: Yes: Well Nourished, No Distress, Calm Eyes: Yes: Conjunctiva Clear, EOM Intact HENT: Yes: Atraumatic, Other (microcepahlic) Neck: Yes: Supple, Trachea Midline Cardiovascular: Yes: Regular Rate and Rhythm, S1, S2 Respiratory: Yes: Regular, CTA Bilaterally, Cough (non- productive) Gastrointestinal: Yes: Normal Bowel Sounds, Soft, Other (PEG p resent). No: Distention, Melena, Palpable Mass, Tenderness ...Rectal Exam: Yes: Sphincter Tone Normal, Other (empty vault). No: Hemorrhoids/External, Hemorrhoids/Internal, Inflammation, Mass, Sphincter Tone Poor Renal/: Yes: Lane Present. No: CVA Tenderness - Left, CVA Tenderness - Right Extremities: Yes: Other (contracted in position). No: Cool, Cyanosis Edema: No Peripheral Pulses WNL: Yes Integumentary: No: Jaundice, Rash Neurological: Yes: Alert, Other (non-verbal) Psychiatric: Yes: Alert, Other (non-verbal, CP and severe MR) Labs: CBC, BMP 02/22/18 06:00 02/22/18 06:00 Imaging - Results X-ray: Pending Cat Scan: Report Reviewed, Image Reviewed (distal stool inpaction) Problem List - Problems (1) Fecal impaction in rectum Assessment/Plan: 22 yo male MMP history of chronic constipation with fecal impaction causing bowel obstruction, two very large bowel movements reported this morning NPO and IVF resuscitation Bowel prep via PEG bedside manual disimpaction - empty vault with scant soft brown stool coating the examining finger Repeat abdominal xrays will follow Code(s): K56.41 - FECAL IMPACTION (2) Chronic constipation Code(s): K59.09 - OTHER CONSTIPATION (3) Altered mental status Code(s): R41.82 - ALTERED MENTAL STATUS, UNSPECIFIED Qualifiers: Altered mental status type: unspecified Qualified Code(s): R41.82 - Altered mental status, unspecified (4) Acute and chronic respiratory failure with hypoxia Code(s): J96.21 - ACUTE AND CHRONIC RESPIRATORY FAILURE WITH HYPOXIA (5) Hypotension Code(s): I95.9 - HYPOTENSION, UNSPECIFIED (6) Profound mental retardation Code(s): F73 - PROFOUND INTELLECTUAL DISABILITIES
[2018-02-22] MEDS: BACLOFEN 10 MG TABLET (FP) GT SCH ×2 (10:25→22:19)
[2018-02-22] MEDS: PHENobarbital 30 MG TABLET GT SCH ×2 (10:25→22:20)
[2018-02-22] MEDS: cloBAZam 10 MG TABLET GT SCH (10:30)
[2018-02-22] MEDS: ACYCLOVIR 200 MG/5 ML LIQUID GT SCH ×2 (10:31→22:18)
[2018-02-22] MEDS: RANITIDINE HCL 150 MG/10 ML UNIT-DOSE GT SCH ×2 (10:32→22:18)
[2018-02-22] MEDS: lamoTRIgine 100 MG TABLET (FP) GT SCH ×2 (10:34→22:45)
[2018-02-22] MEDS: MULTIVIT-MINERALS ORAL LIQUID GT SCH (10:36)
[2018-02-22] MEDS: POLYETHYLENE GLYCOL 3350 119 GM BTL PO SCH ×2 (10:37→22:17)
[2018-02-22] MEDS: KCL 10 MEQ IVPB 10 MEQ/100 ML INFUS.BAG IVPB SCH ×2 (10:38→13:49)
[2018-02-22] MEDS: BUDESONIDE/FORMETEROL FUMARATE 160/4.5 mcg INHALER IH SCH ×2 (10:38→22:17)
[2018-02-22] MEDS: MAG HYDROX/AL HYDROX/SIMETH 30 ML UNIT-DOSE CUP GT SCH ×2 (10:40→22:18)
[2018-02-22] MEDS: DEXTROSE 5%-NORMAL SALINE 1,000 ML IV SCH ×2 (11:01→18:30)
--- NOTE | 2018-02-22 11:18 | PN ---
Progress Note, Physician History of Present Illness: patient clinically stable note from surgery noted had 2 bm patient going to be prepped patient spiked fever vanco was added - Current Medication List Current Medications: Active Medications Acyclovir (Zovirax Oral Suspension -) 400 mg GT BID [facility] Last Admin: 02/22/18 10:31 Dose: 400 mg Al Hydroxide/Mg Hydroxide (Mylanta Oral Suspension -) 20 ml GT BID [facility] Last Admin: 02/22/18 10:40 Dose: 20 ml Baclofen (Lioresal -) 10 mg GT BID [facility] Last Admin: 02/22/18 10:25 Dose: 10 mg Budesonide/Formoterol Fumarate (Symbicort 160/4.5mcg -) 1 puff IH BID [facility] Last Admin: 02/22/18 10:38 Dose: Not Given Clobazam (Onfi -) 5 mg GT DAILY [facility] Last Admin: 02/22/18 10:30 Dose: 5 mg Clonazepam (Klonopin -) 1.5 mg GT TID [facility] Last Admin: 02/22/18 06:04 Dose: 1.5 mg Docusate Sodium (Colace Liquid -) 200 mg PO DAILY PRN PRN Reason: CONSTIPATION Last Admin: 02/17/18 23:22 Dose: 200 mg Dextrose/Sodium Chloride (D5-Ns -) 1,000 mls @ 125 mls/hr IV ASDIR [facility] Last Admin: 02/22/18 11:01 Dose: 125 mls/hr Vancomycin HCl (Vancomycin (Pre-Docked)) 1,000 mg in 250 mls @ 166.667 mls/hr IVPB BID@0700,1900 [facility]; Protocol Last Admin: 02/22/18 06:03 Dose: 166.667 mls/hr Potassium Chloride (Potassium Chloride 10 Meq Premix Ivpb -) 10 meq in 100 mls @ 100 mls/hr IVPB Q60M [facility] Stop: 02/22/18 11:59 Last Admin: 02/22/18 10:38 Dose: 100 mls/hr Lactobacillus Acidophilus (Bacid -) 1 tab GT HS [facility] Last Admin: 02/21/18 22:05 Dose: 1 tab Lamotrigine (Lamictal -) 200 mg GT BID [facility] Last Admin: 02/22/18 10:34 Dose: 200 mg Phenobarbital (Phenobarbital -) 45 mg GT BID [facility] Last Admin: 02/22/18 10:25 Dose: 45 mg Polyethylene Glycol (Miralax (For Daily Use) -) 17 gm PO BID [facility] Last Admin: 02/22/18 10:37 Dose: 17 gm Ranitidine HCl (Zantac Oral Solution -) 75 mg GT BID [facility] Last Admin: 02/22/18 10:32 Dose: 75 mg Sodium Chloride ([place] Nasal [place] -) 2 spray NS BID [facility] - Objective Vital Signs: Vital Signs Temperature 96.2 F L 02/22/18 08:31 Pulse Rate 75 02/22/18 08:31 Respiratory Rate 18 02/22/18 08:31 Blood Pressure 107/66 02/22/18 08:31 O2 Sat by Pulse Oximetry (%) 92 L 02/22/18 08:22 Constitutional: Yes: No Distress, Calm Cardiovascular: Yes: Regular Rate and Rhythm Respiratory: Yes: Regular, Poor Air Entry Gastrointestinal: Yes: Soft, Hypoactive Bowel Sounds Musculoskeletal: Yes: WNL Extremities: Yes: WNL Neurological: Yes: Alert Psychiatric: Yes: Alert Labs: CBC, BMP 02/22/18 06:00 02/22/18 06:00 INR, PTT INR 1.14 (0.83-1.09) H 02/20/18 06:15 Assessment/Plan ams lethargy cough fever bleeding p/r plan will continue current mgmt will stop vanco tomorrow hydration rest as per surgery monitor for fevers
[2018-02-22] MEDS ORDERED: OXYMETAZOLINE 0.05% NASAL SOLUTION 15 ML BOTTLE NS STA (11:41)
[2018-02-22] MEDS ORDERED: PEG3350/SOD SULF,BICARB,CL/KCL 4,000 ML SOLN.RECON PO SCH (12:00)
--- NOTE | 2018-02-22 12:06 | PN ---
GI Progress Note Subjective: No acute events No abdominal pain CT scan revealed fecal retention in the sigmoid and descending colon No rectal bleeding - Objective Vital Signs: Vital Signs Temperature 96.2 F L 02/22/18 08:31 Pulse Rate 75 02/22/18 08:31 Respiratory Rate 18 02/22/18 08:31 Blood Pressure 107/66 02/22/18 08:31 O2 Sat by Pulse Oximetry (%) 92 L 02/22/18 08:22 Constitutional: Calm Eyes: No: Sclera Icterus Cardiovascular: Yes: Other (obscured somewhat by upper airway noise) Respiratory: Yes: Diminished (at bases bilaterally on anterior exam) Gastrointestinal Inspection: No: Distention ...Auscultate: Yes: Normoactive Bowel Sounds ...Palpate: No: Tenderness (No grimacing upon palpation) ...Percussion: No: Tympanitic Extremities: Yes: Other (contracted) Edema: No (No LE edema) Neurological: Yes: Alert Labs: CBC, BMP 02/22/18 06:00 02/22/18 06:00 INR, PTT INR 1.14 (0.83-1.09) H 02/20/18 06:15 - ....Imaging Cat Scan: Image Reviewed Problem List - Problems (1) Rectal bleed Assessment/Plan: No overt rectal bleeding Fecal retention: surgery ordered bowel prep. I advised nurse to give the golyteley slowly via infusion through G-Tube over 4-6 hours as he is prone to aspiration Code(s): K62.5 - HEMORRHAGE OF ANUS AND RECTUM
[2018-02-22] MEDS: SODIUM CHLORIDE NASAL SPRAY 44 ML BOTTLE NS SCH ×2 (13:55→22:17)
[2018-02-22] MEDS ORDERED: PIPERACILLIN/TAZOB 3.375 GM 3.375 GM in DEXTROSE 5%-WATER - 50 ML IVPB SCH (18:00)
[2018-02-22 20:19] LABS: URINE APPEARANCE CLEAR; URINE BILIRUBIN NEGATIVE (<2.0 mg/dL); URINE COLOR STRAW; URINE GLUCOSE (UA) NEGATIVE (NEGATIVE); URINE KETONE NEGATIVE (NEGATIVE); URINE LEUK ESTERASE NEGATIVE (NEGATIVE); URINE NITRITE NEGATIVE (NEGATIVE); URINE PROTEIN NEGATIVE (NEGATIVE); URINE UROBILINOGEN NEGATIVE mg/dL (0.2-1.0)
[2018-02-22] MEDS: LACTOBACILLUS ACIDOPHILUS 1 TABLET GT SCH (22:18)
[2018-02-22] MEDS: OXYMETAZOLINE 0.05% NASAL SOLUTION 15 ML BOTTLE NS SCH (22:25)
[2018-02-23] MEDS ORDERED: DEXTROSE 5%-WATER - 50 ML IVPB ONE ×4 (01:11→21:21)
[2018-02-23] MEDS ORDERED: PIPERACILLIN/TAZOBACTAM 3.375 GM VIAL IVPB ONE ×4 (01:11→21:21)
[2018-02-23] MEDS: PIPERACILLIN/TAZOB 3.375 GM 3.375 GM in DEXTROSE 5%-WATER - 50 ML IVPB SCH ×3 (01:45→18:19)
[2018-02-23] MEDS ORDERED: ACETAMINOPHEN 650 MG SUPP.RECT PR ONE (05:30)
[2018-02-23] MEDS: clonazePAM 0.5 MG TABLET GT SCH ×3 (05:33→22:00)
[2018-02-23] MEDS: VANCOMYCIN 1 GRAM (PRE-DOCKED) 1,000 MG/250 ML BAG IVPB SCH (06:00)
[2018-02-23 08:23] LABS: BASO % 0.7 % (0-2.0); EOS % 0.1 % (0-4.5); HEMATOCRIT 28.6 % (35.4-49); LYMPH % 18.2 % (8-40); MCH 34.5 pg (25.7-33.7); MCHC 34.8 g/dl (32.0-35.9); MEAN PLT VOLUME 8.2 fl (7.5-11.1); MONO % 8.8 % (3.8-10.2); NEUT % 72.2 % (42.8-82.8); PLATELET COUNT 533 K/MM3 (134-434); RBC 2.89 M/mm3 (4.00-5.60); RDW 15.4 % (11.9-15.9)
[2018-02-23 08:38] LABS: ANION GAP 8 MMOL/L (8-16); BLOOD UREA NITROGEN 3 mg/dL (7-18); CALCIUM 7.9 mg/dL (8.5-10.1); CHLORIDE 112 mmol/L (98-107); CO2 30 mmol/L (21-32); CREATININE 0.9 mg/dL (0.55-1.3); GLUCOSE,RANDOM 111 mg/dL (74-106); PHOSPHOROUS 2.2 mg/dL (2.5-4.9); POTASSIUM 3.2 mmol/L (3.5-5.1); SODIUM 150 mmol/L (136-145)
[2018-02-23] MEDS: SODIUM CHLORIDE NASAL SPRAY 44 ML BOTTLE NS SCH ×2 (10:48→22:00)
[2018-02-23] MEDS: OXYMETAZOLINE 0.05% NASAL SOLUTION 15 ML BOTTLE NS SCH ×2 (10:50→23:54)
[2018-02-23] MEDS: RANITIDINE HCL 150 MG/10 ML UNIT-DOSE GT SCH ×2 (10:50→22:00)
[2018-02-23] MEDS: cloBAZam 10 MG TABLET GT SCH (10:51)
[2018-02-23] MEDS: PHENobarbital 30 MG TABLET GT SCH ×2 (10:53→22:03)
[2018-02-23] MEDS: MAG HYDROX/AL HYDROX/SIMETH 30 ML UNIT-DOSE CUP GT SCH ×2 (10:54→22:00)
[2018-02-23] MEDS: POLYETHYLENE GLYCOL 3350 119 GM BTL PO SCH ×2 (10:55→22:00)
[2018-02-23] MEDS: BACLOFEN 10 MG TABLET (FP) GT SCH ×2 (10:56→22:00)
[2018-02-23] MEDS: BUDESONIDE/FORMETEROL FUMARATE 160/4.5 mcg INHALER IH SCH ×2 (10:57→22:00)
[2018-02-23] MEDS ORDERED: PT OWN MED DRAWER 7, Y5N ONE ×2 (10:59→21:21)
[2018-02-23] MEDS: MULTIVIT-MINERALS ORAL LIQUID GT SCH (11:11)
--- NOTE | 2018-02-23 11:11 | PN ---
Progress Note, Physician Chief Complaint: LBO/ fecal impaction History of Present Illness: 22yo male PMH severe MR, cerebral palsy, herpetic meningoencephalitis, and asthma who was sent from [place] for AMS. He has had several bowel movements since our intervention. - Current Medication List Current Medications: Active Medications Acyclovir (Zovirax Oral Suspension -) 400 mg GT BID [facility] Last Admin: 02/22/18 22:18 Dose: 400 mg Al Hydroxide/Mg Hydroxide (Mylanta Oral Suspension -) 20 ml GT BID [facility] Last Admin: 02/23/18 10:54 Dose: 20 ml Baclofen (Lioresal -) 10 mg GT BID [facility] Last Admin: 02/23/18 10:56 Dose: 10 mg Budesonide/Formoterol Fumarate (Symbicort 160/4.5mcg -) 1 puff IH BID [facility] Last Admin: 02/23/18 10:57 Dose: Not Given Clobazam (Onfi -) 5 mg GT DAILY [facility] Last Admin: 02/23/18 10:51 Dose: 5 mg Clonazepam (Klonopin -) 1.5 mg GT TID [facility] Last Admin: 02/23/18 05:33 Dose: 1.5 mg Docusate Sodium (Colace Liquid -) 200 mg PO DAILY PRN PRN Reason: CONSTIPATION Last Admin: 02/17/18 23:22 Dose: 200 mg Dextrose/Sodium Chloride (D5-Ns -) 1,000 mls @ 125 mls/hr IV ASDIR [facility] Last Admin: 02/22/18 18:30 Dose: 125 mls/hr Vancomycin HCl (Vancomycin (Pre-Docked)) 1,000 mg in 250 mls @ 166.667 mls/hr IVPB BID@0700,1900 [facility]; Protocol Last Admin: 02/23/18 06:00 Dose: 166.667 mls/hr Piperacillin Sod/Tazobactam (Sod 3.375 gm/ Dextrose) 50 mls @ 100 mls/hr IVPB Q8H-IV [facility]; Protocol Last Admin: 02/23/18 10:49 Dose: 100 mls/hr Lactobacillus Acidophilus (Bacid -) 1 tab GT HS [facility] Last Admin: 02/22/18 22:18 Dose: 1 tab Lamotrigine (Lamictal -) 200 mg GT BID [facility] Last Admin: 02/22/18 22:45 Dose: 200 mg Oxymetazoline HCl (Afrin -) 2 spray NS BID [facility] Last Admin: 02/23/18 10:50 Dose: 2 spray Phenobarbital (Phenobarbital -) 45 mg GT BID [facility] Last Admin: 02/23/18 10:53 Dose: 45 mg Polyethylene Glycol (Miralax (For Daily Use) -) 17 gm PO BID [facility] Last Admin: 02/23/18 10:55 Dose: 17 gm Ranitidine HCl (Zantac Oral Solution -) 75 mg GT BID [facility] Last Admin: 02/23/18 10:50 Dose: 75 mg Sodium Chloride ([place] Nasal [place] -) 2 spray NS BID [facility] Last Admin: 02/23/18 10:48 Dose: 2 sprays - Objective Vital Signs: Vital Signs Temperature 100.5 F H 02/23/18 06:30 Pulse Rate 109 H 02/23/18 06:00 Respiratory Rate 20 02/23/18 06:00 Blood Pressure 123/64 02/23/18 06:00 O2 Sat by Pulse Oximetry (%) 94 L 02/22/18 21:00 Vital Signs Period Temp Pulse Resp BP Sys/Linares Pulse Ox Last 24 Hr 95.2 F-100.5 F 64-109 20-20 91-132/62-85 94 Intake & Output 02/22/18 02/23/18 02/23/18 23:59 07:59 15:59 Intake Total 600 875 Output Total 1100 1000 Balance -500 -125 Intake: IV 500 875 D5-Ns - 1,000 ml @ 125 500 875 mls/hr IV ASDIR [facility] Rx#: [id number] IVPB 100 Oral 0 Output: Urine [address] Other: Voiding Method Indwelling Catheter Indwelling Catheter Bowel Movement Yes Yes Constitutional: Yes: Well Nourished, No Distress HENT: Yes: Atraumatic, Other (microcephalic) Neck: Yes: Supple, Trachea Midline Cardiovascular: Yes: Regular Rate and Rhythm, S1, S2 Respiratory: Yes: Regular, CTA Bilaterally Gastrointestinal: Yes: Normal Bowel Sounds, Soft, Other (PEG) ...Rectal Exam: Yes: Deferred Genitourinary: No: CVA Tenderness - Left, CVA Tenderness - Right Musculoskeletal: Yes: Joint Stiffness, Other (contracted in the position) Extremities: No: Cool, Cyanosis Edema: No Peripheral Pulses WNL: Yes Peripheral Pulses: Left Radial: 2+, Right Radial: 2+, Left Doralis Pedis: 2+, Right Dorsalis Pedis: 2+ Integumentary: No: Jaundice, Rash Neurological: Yes: Alert, Other (non-verbal) Psychiatric: Yes: Alert, Other (non-verbal) Labs: CBC, BMP 02/23/18 07:30 02/23/18 07:55 INR, PTT INR 1.14 (0.83-1.09) H 02/20/18 06:15 Problem List - Problems (1) Fecal impaction in rectum Assessment/Plan: 22 yo male MMP history of chronic constipation with fecal impaction causing bowel obstruction, two very large bowel movements reported this morning. LBO now resolved. Abdominal xray shows baseline bowel distension. Diet/ feeds as tolerated IVF hydration Bowel regimen by GI will follow Code(s): K56.41 - FECAL IMPACTION (2) Chronic constipation Code(s): K59.09 - OTHER CONSTIPATION (3) Altered mental status Code(s): R41.82 - ALTERED MENTAL STATUS, UNSPECIFIED Qualifiers: Altered mental status type: unspecified Qualified Code(s): R41.82 - Altered mental status, unspecified (4) Acute and chronic respiratory failure with hypoxia Code(s): J96.21 - ACUTE AND CHRONIC RESPIRATORY FAILURE WITH HYPOXIA (5) Hypotension Code(s): I95.9 - HYPOTENSION, UNSPECIFIED (6) Profound mental retardation Code(s): F73 - PROFOUND INTELLECTUAL DISABILITIES
[2018-02-23] MEDS: ACYCLOVIR 200 MG/5 ML LIQUID GT SCH ×2 (11:12→22:00)
[2018-02-23] MEDS: lamoTRIgine 100 MG TABLET (FP) GT SCH ×2 (11:12→22:00)
[2018-02-23] MEDS: DEXTROSE 5%-NORMAL SALINE 1,000 ML IV SCH (12:53)
--- NOTE | 2018-02-23 13:48 | PN ---
Teaching Attending Note Name of Resident: Emile Andrade ATTENDING PHYSICIAN STATEMENT I saw and evaluated the patient. I reviewed the resident's note and discussed the case with the resident. I agree with the resident's findings and plan as documented. SUBJECTIVE:resting comfortable OBJECTIVE: Last Vital Signs Temp Pulse Resp BP Pulse Ox 98.0 F 74 20 121/77 94 L 02/23/18 10:00 02/23/18 10:00 02/23/18 10:00 02/23/18 10:00 02/22/18 21:00 General NAD, smiles during exam CV S1 S2 RRR no murmur/rub/gallop Lungs decreased breath sounds poor inspiratory effort abdomen soft NT, slightly distended. good BS. +PEG through umbilicus Extremities contracted ASSESSMENT AND PLAN: 22yo M with PMH MR, CP, herpetic mengioencephalitis and asthma presented to the ER with hypoxia and hypotensive after seizure episode. as per Aid yesterday he has been more lethargic for the past 2 weeks 1. Acute toxic metabilic encephalopathy- likely due to being post-ictal after seizure vs infection. now returned to baseline. 2. Sepsis due to multifocal PNA- possible aspiration. was hypothermic and ahsan hugger applied. them had low grade fever. now normothermic off ahsan hugger. will cont to monitor fever curve. no leukocytosis. on Zosyn day 9 and vanco day 3. will d/w ID about abx duration. 3. Fecal retention due to pseudo-obstruction- tolerating golytyl through the PEG. multiple BM. will slowly advance diet as tolerated. cont aggressive bowel regimen for 2 BM daily. GI and surgery on board 4. hypokalemia- replete 5. hypernatremia- likely due to feeds being held. will re-start. monitor 6. hypophosphatemia- replete 7. Transaminitis- may due to seizure activity. resolved 8. Hematuria- has indwelling catheter. now clear urine. hgb stable 9. acute hypoxic respiratory distress- likely due to pna. now saturating 97% on RA. c 10. MR 11. CP 12. asthma- cont inhalers 13. DVT ppx- lovenox 14. anticipate d/c to [facility] in 24-48H
[2018-02-23] MEDS ORDERED: POTASSIUM PHOSPHATE 30 MM in SODIUM CHLORIDE 500 ML IVPB ONE (13:50)
--- NOTE | 2018-02-23 13:57 | PN ---
Physical Exam: SUBJECTIVE: Patient seen and examined this AM. He is smiling and interacting well today. Overnight bowel movements noted as per nursing. OBJECTIVE: Vital Signs Period Temp Pulse Resp BP Sys/Linares Pulse Ox Last 24 Hr 95.2 F-100.5 F 64-109 20-20 91-132/62-85 94 GENERAL: Nonverbal, awake but not alert, no acute distress, smiling today HEAD: Microocephalic, atraumatic. EYES: PERRL, no scleral icterus EARS, NOSE, THROAT: No acute bleeding noted. Nasal packing removed without any new signs of bleeding, oropharynx clear without blood LUNGS: Poor inspiratory effort, CTA b/l HEART: Regular rate and rhythm, normal S1 and S2 without murmur ABDOMEN: Soft, nontender to palpation, normoactive bowel sounds MUSCULOSKELETAL: Contracted extremities NEUROLOGICAL: Nonverbal, unable to interact or follow commands Laboratory Results - last 24 hr 02/22/18 02/22/18 02/23/18 17:02 19:15 07:30 WBC 8.0 RBC 2.89 L Hgb 10.0 L Hct 28.6 L MCV 99.0 H MCH 34.5 H MCHC 34.8 RDW 15.4 Plt Count 533 H D MPV 8.2 Absolute Neuts (auto) 5.8 Neutrophils % 72.2 Lymphocytes % 18.2 Monocytes % 8.8 Eosinophils % 0.1 Basophils % 0.7 Nucleated RBC % 0 Sodium Potassium Chloride Carbon Dioxide Anion Gap BUN Creatinine Creat Clearance w eGFR POC Glucometer 116 Random Glucose Calcium Phosphorus Magnesium Urine Color Straw Urine Appearance Clear Urine pH 8.0 Ur Specific [place] 1.002 L Urine Protein Negative Urine Glucose (UA) Negative Urine Ketones Negative Urine Blood Negative Urine Nitrite Negative Urine Bilirubin Negative Urine Urobilinogen Negative Ur Leukocyte Esterase Negative 02/23/18 07:55 WBC RBC Hgb Hct MCV MCH MCHC RDW Plt Count MPV Absolute Neuts (auto) Neutrophils % Lymphocytes % Monocytes % Eosinophils % Basophils % Nucleated RBC % Sodium 150 H Potassium 3.2 L Chloride 112 H Carbon Dioxide 30 Anion Gap 8 BUN 3 L Creatinine 0.9 Creat Clearance w eGFR > 60 POC Glucometer Random Glucose 111 H Calcium 7.9 L Phosphorus 2.2 L Magnesium 2.0 Urine Color Urine Appearance Urine pH Ur Specific [place] Urine Protein Urine Glucose (UA) Urine Ketones Urine Blood Urine Nitrite Urine Bilirubin Urine Urobilinogen Ur Leukocyte Esterase Active Medications Generic Name Dose Route Start Last Admin Trade Name Freq PRN Reason Stop Dose Admin Acyclovir 400 mg 02/15/18 10:00 02/23/18 11:12 Zovirax Oral Suspension - GT 400 mg BID [facility] Administration Al Hydroxide/Mg Hydroxide 20 ml 02/15/18 10:00 02/23/18 10:54 Mylanta Oral Suspension - GT 20 ml BID [facility] Administration Baclofen 10 mg 02/15/18 10:00 02/23/18 10:56 Lioresal - GT 10 mg BID [facility] Administration Budesonide/Formoterol Fumarate 1 puff 02/15/18 10:00 02/23/18 10:57 Symbicort 160/4.5mcg - IH Not Given BID [facility] Clobazam 5 mg 02/15/18 10:00 02/23/18 10:51 Onfi - GT 5 mg DAILY [facility] Administration Clonazepam 1.5 mg 02/15/18 06:00 02/23/18 05:33 Klonopin - GT 1.5 mg TID [facility] Administration Docusate Sodium 200 mg 02/16/18 10:57 02/17/18 23:22 Colace Liquid - PO 200 mg DAILY PRN Administration CONSTIPATION Dextrose/Sodium Chloride 1,000 mls @ 125 mls/hr 02/16/18 17:57 02/23/18 12:53 D5-Ns - IV 125 mls/hr ASDIR [facility] Administration Vancomycin HCl 1,000 mg in 250 mls @ 166.667 mls/hr 02/21/18 19:00 02/23/18 06:00 Vancomycin (Pre-Docked) IVPB 166.667 mls/hr BID@0700,1900 [facility] Administration Protocol Piperacillin Sod/Tazobactam 50 mls @ 100 mls/hr 02/22/18 18:00 02/23/18 10:49 Sod 3.375 gm/ Dextrose IVPB 100 mls/hr Q8H-IV [facility] Administration Protocol Potassium Phosphate 30 mm/ 260 mls @ 62.5 mls/hr 02/23/18 13:50 Sodium Chloride IVPB 02/23/18 17:59 ONCE ONE Lactobacillus Acidophilus 1 tab 02/15/18 22:00 02/22/18 22:18 Bacid - GT 1 tab HS [facility] Administration Lamotrigine 200 mg 02/15/18 10:00 02/23/18 11:12 Lamictal - GT 200 mg BID [facility] Administration Oxymetazoline HCl 2 spray 02/22/18 22:00 02/23/18 10:50 Afrin - NS 2 spray BID [facility] Administration Phenobarbital 45 mg 02/15/18 10:00 02/23/18 10:53 Phenobarbital - GT 45 mg BID [facility] Administration Polyethylene Glycol 17 gm 02/16/18 11:00 02/23/18 10:55 Miralax (For Daily Use) - PO 17 gm BID [facility] Administration Ranitidine HCl 75 mg 02/15/18 10:00 02/23/18 10:50 Zantac Oral Solution - GT 75 mg BID [facility] Administration Sodium Chloride 2 spray 02/22/18 12:00 02/23/18 10:48 [place] Nasal [place] - NS 2 sprays BID [facility] Administration ASSESSMENT/PLAN: 22 yo Male with PMH of severe MR, cerebral palsy, herpetic meningoencephalitis, and asthma who was sent from [place] for AMS. Change in Mental Status - improving -Possibly due to seizure activity, though likely due to Healthcare Acquired Pneumonia -CXR noted with worsening white out of lung on the left -CT chest: Consolidation with air bronchogram in both lower lobes as well as extensive airspace disease in left upper lobe and patchy airspace disease in RUL consistent with pneumonia -Pt received Zosyn on recent admission for pneumonia -On Vancomycin 1000mg IV BID, Zosyn 3.375 gm IV Q8 -ID consulted, will await recommendation for continued antibiotic use and possible d/c planning -Sputum cultures + for Pseudomonas -No longer requiring additional O2, 97 % on Room air Hx of Seizures -Neurology consult appreciated -Prolactin 31.1 -Resume home medications, Phenobartibol 45 mg GT BID, level 4.4 on admission -Lamictal 200 gm GT BID -Diazepam Rectal gel 10 mg RC PRN for active seizure -Clonazepam 1.5 mg GT TID -Clobazam 5 mg GT QD -Baclofen 10 mg GT BID -Seizure precautions -No need for MRI Nasal Bleeding noted -Pt noted with repeated bleeding from left nare -Humidified O2 -Nasal packing removed -Mucus from nose with minimal blood noted -H/H stable -ENT Consult appreciated -Afrin [place] BID Blood per Rectum/Clots in Stool - resolved -H/H down from admission but stable at 03/09, slow downward trend -Rectal exam without masses or fissures, though minimal blood noted on glove -GI consult appreciated -Coags normal -Resolved Hypoglycemia -D5 NS @ 125 cc/hr -BGMs Q6, notify if > 200 -can D/C if tolerating tube feeds Transaminitis - resolved -Pt commonly with transaminitis on admission -RUQ ultrasound reveals fatty liver with otherwise limited exam -Trend LFTs resolved Asthma -Continue home meds -Duonebs Q6 -Symbicort BID -Flovent Daily Hx Herpetic Meningoencephalitis -Continue home Acyclovir 400 mg GT BID [facility] -Zantac 75 mg GT BID DVT Prophylaxis -Lovenox 40 mg SQ Daily -Hold for recent bleeding FEN -Fluids: D5 NS @125 cc/hr -Electrolytes: Hypokalemia, low Phos, replete BMP in AM -Nutrition: Trial tube feedings, osmolyte 1.2 @ 20 cc/hr titrate to 45 cc/hr Disposition Med/Surg Visit type - Emergency Visit Emergency Visit: Yes ED Registration Date: 02/16/18 Care time: The patient presented to the Emergency Department on the above date and was hospitalized for further evaluation of their emergent condition. - New Patient This patient is new to me today: No - Critical Care Critical Care patient: No
--- NOTE | 2018-02-23 14:04 | PN ---
Progress Note, Physician History of Present Illness: stable no bleeding noted breathing better more awake and alert - Current Medication List Current Medications: Active Medications Acyclovir (Zovirax Oral Suspension -) 400 mg GT BID [facility] Last Admin: 02/23/18 11:12 Dose: 400 mg Al Hydroxide/Mg Hydroxide (Mylanta Oral Suspension -) 20 ml GT BID [facility] Last Admin: 02/23/18 10:54 Dose: 20 ml Baclofen (Lioresal -) 10 mg GT BID [facility] Last Admin: 02/23/18 10:56 Dose: 10 mg Budesonide/Formoterol Fumarate (Symbicort 160/4.5mcg -) 1 puff IH BID [facility] Last Admin: 02/23/18 10:57 Dose: Not Given Clobazam (Onfi -) 5 mg GT DAILY [facility] Last Admin: 02/23/18 10:51 Dose: 5 mg Clonazepam (Klonopin -) 1.5 mg GT TID [facility] Last Admin: 02/23/18 05:33 Dose: 1.5 mg Docusate Sodium (Colace Liquid -) 200 mg PO DAILY PRN PRN Reason: CONSTIPATION Last Admin: 02/17/18 23:22 Dose: 200 mg Piperacillin Sod/Tazobactam (Sod 3.375 gm/ Dextrose) 50 mls @ 100 mls/hr IVPB Q8H-IV [facility]; Protocol Last Admin: 02/23/18 10:49 Dose: 100 mls/hr Potassium Phosphate 30 mm/ (Sodium Chloride) 510 mls @ 62.5 mls/hr IVPB ONCE ONE Stop: 02/23/18 21:59 Lactobacillus Acidophilus (Bacid -) 1 tab GT HS [facility] Last Admin: 02/22/18 22:18 Dose: 1 tab Lamotrigine (Lamictal -) 200 mg GT BID [facility] Last Admin: 02/23/18 11:12 Dose: 200 mg Oxymetazoline HCl (Afrin -) 2 spray NS BID [facility] Last Admin: 02/23/18 10:50 Dose: 2 spray Phenobarbital (Phenobarbital -) 45 mg GT BID [facility] Last Admin: 02/23/18 10:53 Dose: 45 mg Polyethylene Glycol (Miralax (For Daily Use) -) 17 gm PO BID [facility] Last Admin: 02/23/18 10:55 Dose: 17 gm Ranitidine HCl (Zantac Oral Solution -) 75 mg GT BID [facility] Last Admin: 02/23/18 10:50 Dose: 75 mg Sodium Chloride ([place] Nasal [place] -) 2 spray NS BID [facility] Last Admin: 02/23/18 10:48 Dose: 2 sprays - Objective Vital Signs: Vital Signs Temperature 98.0 F 02/23/18 10:00 Pulse Rate 74 02/23/18 10:00 Respiratory Rate 20 02/23/18 10:00 Blood Pressure 121/77 02/23/18 10:00 O2 Sat by Pulse Oximetry (%) 94 L 02/22/18 21:00 Constitutional: Yes: No Distress, Calm HENT: Yes: Other (bleeding stoped from nasal cavity) Cardiovascular: Yes: Regular Rate and Rhythm Respiratory: Yes: Regular, CTA Bilaterally Gastrointestinal: Yes: Normal Bowel Sounds, Soft Musculoskeletal: Yes: WNL Extremities: Yes: Other Neurological: Yes: Alert, Other Labs: CBC, BMP 02/23/18 07:30 02/23/18 07:55 INR, PTT INR 1.14 (0.83-1.09) H 02/20/18 06:15 Assessment/Plan ams lethargy cough fever bleding plan duncan top abx tomorrow and monitor npo resp support monitor for fevers suctioning asp precautions
[2018-02-23] MEDS: D5-1/2NS+20 MEQ KCL - 20 MEQ/1,000 ML INFUS.BAG IV SCH (18:08)
[2018-02-23] MEDS: LACTOBACILLUS ACIDOPHILUS 1 TABLET GT SCH (22:00)
[2018-02-24] MEDS ORDERED: PT OWN MED DRAWER 7, Y5N ONE ×3 (00:01→20:31)
[2018-02-24] MEDS: PIPERACILLIN/TAZOB 3.375 GM 3.375 GM in DEXTROSE 5%-WATER - 50 ML IVPB SCH ×2 (02:25→11:21)
[2018-02-24] MEDS: clonazePAM 0.5 MG TABLET GT SCH ×3 (06:39→21:42)
[2018-02-24] MEDS: ACYCLOVIR 200 MG/5 ML LIQUID GT SCH ×2 (11:02→21:44)
[2018-02-24] MEDS: lamoTRIgine 100 MG TABLET (FP) GT SCH ×2 (11:04→21:47)
[2018-02-24] MEDS: MULTIVIT-MINERALS ORAL LIQUID GT SCH (11:05)
[2018-02-24] MEDS: BUDESONIDE/FORMETEROL FUMARATE 160/4.5 mcg INHALER IH SCH ×2 (11:06→23:00)
[2018-02-24] MEDS: POLYETHYLENE GLYCOL 3350 119 GM BTL PO SCH ×2 (11:07→21:47)
[2018-02-24] MEDS: SODIUM CHLORIDE NASAL SPRAY 44 ML BOTTLE NS SCH ×2 (11:07→21:47)
[2018-02-24] MEDS: OXYMETAZOLINE 0.05% NASAL SOLUTION 15 ML BOTTLE NS SCH ×2 (11:08→21:43)
[2018-02-24] MEDS ORDERED: DEXTROSE 5%-WATER - 50 ML IVPB ONE (11:14)
[2018-02-24] MEDS ORDERED: PIPERACILLIN/TAZOBACTAM 3.375 GM VIAL IVPB ONE (11:14)
[2018-02-24] MEDS: cloBAZam 10 MG TABLET GT SCH (11:15)
[2018-02-24] MEDS: BACLOFEN 10 MG TABLET (FP) GT SCH ×2 (11:16→21:44)
[2018-02-24] MEDS: PHENobarbital 30 MG TABLET GT SCH ×2 (11:19→21:43)
[2018-02-24] MEDS: RANITIDINE HCL 150 MG/10 ML UNIT-DOSE GT SCH ×2 (11:20→21:45)
[2018-02-24] MEDS: MAG HYDROX/AL HYDROX/SIMETH 30 ML UNIT-DOSE CUP GT SCH ×2 (11:21→21:44)
--- NOTE | 2018-02-24 12:51 | PN ---
Progress Note, Physician History of Present Illness: patient stable looks comfortable patient still with low grade fever high sodium - Current Medication List Current Medications: Active Medications Acyclovir (Zovirax Oral Suspension -) 400 mg GT BID [facility] Last Admin: 02/24/18 11:02 Dose: 400 mg Al Hydroxide/Mg Hydroxide (Mylanta Oral Suspension -) 20 ml GT BID [facility] Last Admin: 02/24/18 11:21 Dose: 20 ml Baclofen (Lioresal -) 10 mg GT BID [facility] Last Admin: 02/24/18 11:16 Dose: 10 mg Budesonide/Formoterol Fumarate (Symbicort 160/4.5mcg -) 1 puff IH BID [facility] Last Admin: 02/24/18 11:06 Dose: Not Given Clobazam (Onfi -) 5 mg GT DAILY [facility] Last Admin: 02/24/18 11:15 Dose: 5 mg Clonazepam (Klonopin -) 1.5 mg GT TID [facility] Last Admin: 02/24/18 06:39 Dose: 1.5 mg Docusate Sodium (Colace Liquid -) 200 mg PO DAILY PRN PRN Reason: CONSTIPATION Last Admin: 02/17/18 23:22 Dose: 200 mg Piperacillin Sod/Tazobactam (Sod 3.375 gm/ Dextrose) 50 mls @ 100 mls/hr IVPB Q8H-IV [facility]; Protocol Last Admin: 02/24/18 11:21 Dose: 100 mls/hr Potassium Chloride/Dextrose/Sod Cl (D5-1/2ns+20 Meq Kcl -) 20 meq in 1,000 mls @ 83 mls/hr IV ASDIR [facility] Last Admin: 02/23/18 18:08 Dose: Not Given Lactobacillus Acidophilus (Bacid -) 1 tab GT HS [facility] Last Admin: 02/23/18 22:00 Dose: 1 tab Lamotrigine (Lamictal -) 200 mg GT BID [facility] Last Admin: 02/24/18 11:04 Dose: 200 mg Oxymetazoline HCl (Afrin -) 2 spray NS BID [facility] Last Admin: 02/24/18 11:08 Dose: 2 spray Phenobarbital (Phenobarbital -) 45 mg GT BID [facility] Last Admin: 02/24/18 11:19 Dose: 45 mg Polyethylene Glycol (Miralax (For Daily Use) -) 17 gm PO BID [facility] Last Admin: 02/24/18 11:07 Dose: 17 gm Ranitidine HCl (Zantac Oral Solution -) 75 mg GT BID [facility] Last Admin: 02/24/18 11:20 Dose: 75 mg Sodium Chloride ([place] Nasal [place] -) 2 spray NS BID [facility] Last Admin: 02/24/18 11:07 Dose: 2 sprays - Objective Vital Signs: Vital Signs Temperature 98.2 F 02/24/18 06:00 Pulse Rate 74 02/23/18 18:00 Respiratory Rate 20 02/24/18 06:00 Blood Pressure 102/66 02/24/18 06:00 O2 Sat by Pulse Oximetry (%) 94 L 02/23/18 21:00 Constitutional: Yes: No Distress, Calm Cardiovascular: Yes: Regular Rate and Rhythm Respiratory: Yes: Poor Air Entry, Other Gastrointestinal: Yes: Normal Bowel Sounds, Soft Musculoskeletal: Yes: WNL Extremities: Yes: Other Neurological: Yes: Alert, Other Psychiatric: Yes: Other Labs: CBC, BMP 02/23/18 07:30 02/23/18 07:55 INR, PTT INR 1.14 (0.83-1.09) H 02/20/18 06:15 Assessment/Plan ams lethargy cough fever bleeding p/r plan will stop zosyn and monitor incentive leanne rest as per the team
--- NOTE | 2018-02-24 14:58 | PN ---
Physical Exam: SUBJECTIVE: Patient seen and examined this AM. He is resting comfortably in bed and smiling. OBJECTIVE: Vital Signs Period Temp Pulse Resp BP Sys/Linares Pulse Ox Last 24 Hr 97.0 F-98.2 F 74-78 20-20 97-114/62-70 94 GENERAL: Nonverbal, awake but not alert, no acute distress, smiling today HEAD: Microocephalic, atraumatic. EYES: PERRL, no scleral icterus EARS, NOSE, THROAT: No acute bleeding noted. Nasal packing removed without any new signs of bleeding, oropharynx clear without blood LUNGS: Poor inspiratory effort, CTA b/l HEART: Regular rate and rhythm, normal S1 and S2 without murmur ABDOMEN: Soft, nontender to palpation, normoactive bowel sounds MUSCULOSKELETAL: Contracted extremities NEUROLOGICAL: Nonverbal, unable to interact or follow commands Laboratory Results - last 24 hr 02/24/18 06:16 POC Glucometer 116 Active Medications Generic Name Dose Route Start Last Admin Trade Name Freq PRN Reason Stop Dose Admin Acyclovir 400 mg 02/15/18 10:00 02/24/18 11:02 Zovirax Oral Suspension - GT 400 mg BID JORGE Administration Al Hydroxide/Mg Hydroxide 20 ml 02/15/18 10:00 02/24/18 11:21 Mylanta Oral Suspension - GT 20 ml BID JORGE Administration Baclofen 10 mg 02/15/18 10:00 02/24/18 11:16 Lioresal - GT 10 mg BID JORGE Administration Budesonide/Formoterol Fumarate 1 puff 02/15/18 10:00 02/24/18 11:06 Symbicort 160/4.5mcg - IH Not Given BID JORGE Clobazam 5 mg 02/15/18 10:00 02/24/18 11:15 Onfi - GT 5 mg DAILY JORGE Administration Clonazepam 1.5 mg 02/15/18 06:00 02/24/18 06:39 Klonopin - GT 1.5 mg TID JORGE Administration Docusate Sodium 200 mg 02/16/18 10:57 02/17/18 23:22 Colace Liquid - PO 200 mg DAILY PRN Administration CONSTIPATION Potassium Chloride/Dextrose/Sod Cl 20 meq in 1,000 mls @ 83 mls/hr 02/23/18 14 :15 02/23/18 18:08 D5-1/2ns+20 Meq Kcl - IV Not Given ASDIR JORGE Lactobacillus Acidophilus 1 tab 02/15/18 22:00 02/23/18 22:00 Bacid - GT 1 tab HS JORGE Administration Lamotrigine 200 mg 02/15/18 10:00 02/24/18 11:04 Lamictal - GT 200 mg BID JORGE Administration Oxymetazoline HCl 2 spray 02/22/18 22:00 02/24/18 11:08 Afrin - NS 2 spray BID JORGE Administration Phenobarbital 45 mg 02/15/18 10:00 02/24/18 11:19 Phenobarbital - GT 45 mg BID JORGE Administration Polyethylene Glycol 17 gm 02/16/18 11:00 02/24/18 11:07 Miralax (For Daily Use) - PO 17 gm BID JORGE Administration Ranitidine HCl 75 mg 02/15/18 10:00 02/24/18 11:20 Zantac Oral Solution - GT 75 mg BID JORGE Administration Sodium Chloride 2 spray 02/22/18 12:00 02/24/18 11:07 [place] Nasal [place] - NS 2 sprays BID JORGE Administration ASSESSMENT/PLAN: 22 yo Male with PMH of severe MR, cerebral palsy, herpetic meningoencephalitis, and asthma who was sent from [place] for AMS. Change in Mental Status - improving -Possibly due to seizure activity, though likely due to Healthcare Acquired Pneumonia -CXR noted with worsening white out of lung on the left -CT chest: Consolidation with air bronchogram in both lower lobes as well as extensive airspace disease in left upper lobe and patchy airspace disease in RUL consistent with pneumonia -Sputum cultures + for Pseudomonas, treated with Zosyn -ID consulted appreciated -Monitor off Abx, can likely DC today -No longer requiring additional O2, 97 % on Room air -DC Lane, bladder scan to r/o retention as pt is non verbal Hx of Seizures -Neurology consult appreciated -Prolactin 31.1 -Resume home medications, Phenobartibol 45 mg GT BID, level 4.4 on admission -Lamictal 200 gm GT BID -Diazepam Rectal gel 10 mg RC PRN for active seizure -Clonazepam 1.5 mg GT TID -Clobazam 5 mg GT QD -Baclofen 10 mg GT BID -Seizure precautions -No need for MRI Nasal Bleeding noted -Pt noted with repeated bleeding from left nare -Humidified O2 -Nasal packing removed -No sign of bleeding -H/H stable -ENT Consult appreciated -Afrin [place] BID Hypoglycemia -D5 1/2 NS + 20 KCl @ 125 cc/hr -BGMs Q6, notify if > 200 -can D/C if tolerating tube feeds Asthma -Continue home meds -Duonebs Q6 -Symbicort BID -Flovent Daily Hx Herpetic Meningoencephalitis -Continue home Acyclovir 400 mg GT BID GERD -Zantac 75 mg GT BID DVT Prophylaxis -Lovenox 40 mg SQ Daily -Hold for recent bleeding FEN -Fluids: D5 1/2 NS + 20 KCl @125 cc/hr -Electrolytes: Hypokalemia, low Phos, replete BMP in AM -Nutrition: Tube feedings, Osmolyte 1.2 @ 20 cc/hr titrate to 45 cc/hr Disposition Med/Surg, For DC Visit type - Emergency Visit Emergency Visit: Yes ED Registration Date: 02/16/18 Care time: The patient presented to the Emergency Department on the above date and was hospitalized for further evaluation of their emergent condition. - New Patient This patient is new to me today: No - Critical Care Critical Care patient: No
[2018-02-24] MEDS: D5-1/2NS+20 MEQ KCL - 20 MEQ/1,000 ML INFUS.BAG IV SCH (15:15)
--- NOTE | 2018-02-24 15:28 | PN ---
Teaching Attending Note Name of Resident: Emile Andrade ATTENDING PHYSICIAN STATEMENT I saw and evaluated the patient. I reviewed the resident's note and discussed the case with the resident. I agree with the resident's findings and plan as documented. SUBJECTIVE:resting comfortable OBJECTIVE: Last Vital Signs Temp Pulse Resp BP Pulse Ox 97.0 F L 78 20 114/70 94 L 02/24/18 14:16 1018 14:16 02/24/18 14:16 02/24/18 14:16 02/23/18 21:00 General NAD, smiles during exam Lungs decreased breath sounds poor inspiratory effort abdomen soft NT, slightly distended. good BS. +PEG through umbilicus Extremities contracted ASSESSMENT AND PLAN: 22yo M with PMH MR, CP, herpetic mengioencephalitis and asthma presented to the ER with hypoxia and hypotensive after seizure episode. as per Aid yesterday he has been more lethargic for the past 2 weeks 1. Acute toxic metabilic encephalopathy- likely due to being post-ictal after seizure vs infection. now returned to baseline. 2. Sepsis due to multifocal PNA- possible aspiration. clinically improved. afebrile. zosyn day 10. as per ID plan is to monitor for 24H off abx. 3. Fecal retention due to pseudo-obstruction- tolerating golytyl through the PEG. multiple BM. tolerating PEG feeds. cont aggressive bowel regimen for 2 BM daily. GI and surgery on board 4. hypokalemia- replete 5. hypernatremia- likely due to feeds being held. improved 6. hypophosphatemia- resolved 7. Transaminitis- may due to seizure activity. resolved 8. Hematuria- has indwelling catheter. now clear urine. hgb stable. d/c esqueda 9. acute hypoxic respiratory distress- likely due to pna. now saturating 97% on RA. 10. MR 11. CP 12. asthma- cont inhalers 13. DVT ppx- lovenox 14.d/c to [place] tomorrow if remains afebrile
--- NOTE | 2018-02-24 20:49 | DS ---
Physical Exam: Of note, due to DC late in the day, pt stayed until 02/25/2018. Subjective and Exam from 02/25, for Exam on day of DC (02/24) see progress note from 02/24, though subjective and exam unchanged. SUBJECTIVE: Patient seen and examined this AM. He is comfortable in bed, smiling , and tracking movements around the room. OBJECTIVE: Vital Signs Period Temp Pulse Resp BP Sys/Linares Pulse Ox Last 24 Hr 97.0 F-98.6 F 76-78 18-20 102-128/61-74 94-94 PHYSICAL EXAM GENERAL: Nonverbal, awake but not alert, no acute distress, smiling today HEAD: Microocephalic, atraumatic. EYES: PERRL, no scleral icterus EARS, NOSE, THROAT: No acute bleeding noted. Nasal packing removed without any new signs of bleeding, oropharynx clear without blood LUNGS: Poor inspiratory effort, CTA b/l HEART: Regular rate and rhythm, normal S1 and S2 without murmur ABDOMEN: Soft, nontender to palpation, normoactive bowel sounds MUSCULOSKELETAL: Contracted extremities NEUROLOGICAL: Nonverbal, unable to interact or follow commands LABS Laboratory Results - last 24 hr 02/24/18 02/24/18 06:16 17:17 POC Glucometer 116 114 IMAGING: CXR on admission: Total opacification of left hemithorax when compared to CXR from 01/04. Head CT: negative for acute bleed or fracture RUQ US: Diffuse fatty infiltration of the liver Chest CT: Consolidation in both lower lobes with air bronchograms with extensive airspace disease in left upper and right upper lobes consistent with pneumonia Spleen US: mildly enlarged spleen Repeat CXR: Improvement of Left hemithorax, abdominal distension Abdomen Xray: Distended bowel, no free air noted Abdomen Pelvis CT: Marked rectosigmoid fecal retention noted Repeat Abdomen Xray: Abdominal distension with no free air under the diaphragms HOSPITAL COURSE: Date of Admission:02/16/18 Date of Discharge: 02/24/18 HPI on Admission Pt is nonverbal. History taken from [facility] health aide at bedside. 22M w/ pmhx of severe MR, cerebral palsy, herpetic meningoencephalitis, and asthma who was sent from [facility] for AMS. According to the health aide, pt is normally active and laughing at baseline. However, pt was found to be altered from baseline and not as active. At [facility], pt was witnessed to have an episode of tongue-biting, but it was unclear as to whether a tonic-clonic seizure was noted. GREEN reports that recently, pt's roommate had and ever since this time, pt seemed to be emotionally withdrawn compared to baseline. At [facility], pt was found to desat in the 80s on RA, and hypotensive in the 70s/40s. Limited history was given as health aide at bedside was not the same person taking care of the patient at time of episode. Hospital Course Pt was seen by neurology who could not rule out whether pt was having seizures, though did not recommend any medication changes. The facial twitches resolved. He was found to have a likely aspiration pneumonia on CXR and Chest CT as mentioned above. He was seen by ID who recommended Zosyn and azithromycin. Pts clinical status improved and he was observed off antibiotics without any return of fevers or concerning cough. Of note he was found to have one episode of mildly bloody bowel movement with clots. He was seen by GI who did not recommend any further management at this time as the bleeding resolved after one episode. He was also found to have epistaxis from the left nare that required nasal packing for 2 days. He was seen by ENT who did not have any further recommendations, the nasal packing was removed and the bleeding has not returned. He was also noted to have abdominal distension during the hospital course. CT abdomen and pelvis was performed which revealed fecal retention. He was seen by surgery who performed manual disimpaction in addition to recommending GoLytely through the PEG tube. He had good relief and has had regular bowel movements since then. At this time all of his acute problems have been resolved and he is stable off of antibiotics and off of Oxygen therapy. He is medically safe to return back to the [facility]. Case discussed with Dr. Contreras as well as Dr. Valentino. Minutes to complete discharge: 45 Discharge Summary Reason For Visit: ALTERED MENTAL STATUS Current Active Problems Chronic constipation (Chronic) Condition: Good - Instructions Diet, Activity, Other Instructions: Please contact Nursing Planing Machine Operator desk at [facility] for signout at and fax discharge instructions. You were admitted to the hospital with concern that you were having seizures. You were seen by neurology who recommended no changes to your current seizure medications. You were found to have a pneumonia on a CT scan of your chest. You were treated with antibiotics and improved. Your tube feeds were held as you were found to be retaining a large amount of stool in your colon. You were given a bowel prep through your G-tube with good result as you had multiple large bowel movements. You were noted to have a nosebleed which did not resolve with pressure and you required nasal packing in your left nostril. You were seen by ENT who did not recommend any further management. The nasal packing was removed and the nosebleed completely resolved. At this time you are medically safe for discharge back to the [facility]. Please continue all medications as they were prescribed prior to hospitalization. No medication changes have been made on this admission. Suppositories or stool softeners can be used as needed to allow for regular bowel movements. If you have any severe shortness of breath, difficulty breathing, high fevers, cough up blood, or have another nosebleed that does not stop with a few minutes of pressure, you should be seen by a doctor or return to the emergency department immediately. Disposition: [facility] - Home Medications Comprehensive Discharge Medication List: Ambulatory Orders Acyclovir 400 mg GT BID 04/25/17 Baclofen 10 mg GT BID 04/25/17 Benzoyl Peroxide 5% Gel - 1 applic TP BID 04/25/17 Budesonide/Formeterol Fumarate [SYMBICORT 160/4.5mcg -] 1 inh PO BID 04/25/17 Clobazam [Onfi -] 5 mg GT DAILY 04/25/17 Clonazepam 1.5 mg GT TID 04/25/17 Diazepam Rectal Gel [Diastat Rectal Gel -] 10 mg RC PRN PRN 04/25/17 Fluticasone Propionate [Flovent Diskus] 50 mcg IH DAILY 04/25/17 Fructooligosaccharides/Polydex [Fiber-Stat 15 gm/30 ml Liquid] 15 gm GT DAILY Ipratropium/Albuterol Sulfate [Iprat-Albut 0.5-3(2.5) mg/3 ml] 3 ml IH Q6H 04/25 Lactobacillus Acidophilus [Acidophilus] 1 each GT HS 04/25/17 Lamotrigine 200 mg GT BID 04/25/17 Magnesium Hydrox 2400MG/30Ml [Milk of Magnesia -] 20 ml GT BID 04/25/17 Multivitamin [Poly-Vitamin] 1 each GT DAILY 04/25/17 Phenobarbital 48.6 mg GT BID 04/25/17 Ranitidine [Zantac -] 75 mg GT BID 04/25/17 This patient is new to me today: No Emergency Visit: Yes ED Registration Date: 02/16/18 Care time: The patient presented to the Emergency Department on the above date and was hospitalized for further evaluation of their emergent condition. Critical Care patient: No - Discharge Referral Referred to [facility] Med P.C.: No
[2018-02-24] MEDS: LACTOBACILLUS ACIDOPHILUS 1 TABLET GT SCH (21:44)
[2018-02-25] MEDS ORDERED: PT OWN MED DRAWER 7, Y5N ONE ×3 (05:38→13:54)
[2018-02-25] MEDS: clonazePAM 0.5 MG TABLET GT SCH ×2 (05:56→13:24)
[2018-02-25] MEDS: RANITIDINE HCL 150 MG/10 ML UNIT-DOSE GT SCH (09:27)
[2018-02-25] MEDS: MAG HYDROX/AL HYDROX/SIMETH 30 ML UNIT-DOSE CUP GT SCH (09:28)
[2018-02-25] MEDS: BACLOFEN 10 MG TABLET (FP) GT SCH (09:29)
[2018-02-25] MEDS: ACYCLOVIR 200 MG/5 ML LIQUID GT SCH (09:29)
[2018-02-25] MEDS: lamoTRIgine 100 MG TABLET (FP) GT SCH (09:30)
[2018-02-25] MEDS: BUDESONIDE/FORMETEROL FUMARATE 160/4.5 mcg INHALER IH SCH (09:30)
[2018-02-25] MEDS: MULTIVIT-MINERALS ORAL LIQUID GT SCH (09:31)
[2018-02-25] MEDS: cloBAZam 10 MG TABLET GT SCH (09:32)
[2018-02-25] MEDS: POLYETHYLENE GLYCOL 3350 119 GM BTL PO SCH (09:37)
[2018-02-25] MEDS: PHENobarbital 30 MG TABLET GT SCH (09:39)
[2018-02-25] MEDS: SODIUM CHLORIDE NASAL SPRAY 44 ML BOTTLE NS SCH (09:52)
[2018-02-25] MEDS: OXYMETAZOLINE 0.05% NASAL SOLUTION 15 ML BOTTLE NS SCH (09:52)
--- NOTE | 2018-02-25 14:52 | PN ---
Progress Note, Physician History of Present Illness: stable no issues has been afebrile - Current Medication List Current Medications: Active Medications Acyclovir (Zovirax Oral Suspension -) 400 mg GT BID [facility] Last Admin: 02/25/18 09:29 Dose: 400 mg Al Hydroxide/Mg Hydroxide (Mylanta Oral Suspension -) 20 ml GT BID [facility] Last Admin: 02/25/18 09:28 Dose: 20 ml Baclofen (Lioresal -) 10 mg GT BID [facility] Last Admin: 02/25/18 09:29 Dose: 10 mg Budesonide/Formoterol Fumarate (Symbicort 160/4.5mcg -) 1 puff IH BID [facility] Last Admin: 02/25/18 09:30 Dose: Not Given Clobazam (Onfi -) 5 mg GT DAILY [facility] Last Admin: 02/25/18 09:32 Dose: 5 mg Clonazepam (Klonopin -) 1.5 mg GT TID [facility] Last Admin: 02/25/18 13:24 Dose: 1.5 mg Docusate Sodium (Colace Liquid -) 200 mg PO DAILY PRN PRN Reason: CONSTIPATION Last Admin: 02/17/18 23:22 Dose: 200 mg Lactobacillus Acidophilus (Bacid -) 1 tab GT HS [facility] Last Admin: 02/24/18 21:44 Dose: 1 tab Lamotrigine (Lamictal -) 200 mg GT BID [facility] Last Admin: 02/25/18 09:30 Dose: 200 mg Oxymetazoline HCl (Afrin -) 2 spray NS BID [facility] Last Admin: 02/25/18 09:52 Dose: 2 spray Phenobarbital (Phenobarbital -) 45 mg GT BID [facility] Last Admin: 02/25/18 09:39 Dose: 45 mg Polyethylene Glycol (Miralax (For Daily Use) -) 17 gm PO BID [facility] Last Admin: 02/25/18 09:37 Dose: 17 gm Ranitidine HCl (Zantac Oral Solution -) 75 mg GT BID [facility] Last Admin: 02/25/18 09:27 Dose: 75 mg Sodium Chloride ([place] Nasal [place] -) 2 spray NS BID [facility] Last Admin: 02/25/18 09:52 Dose: 2 sprays - Objective Vital Signs: Vital Signs Temperature 97.0 F L 02/25/18 14:50 Pulse Rate 53 L 02/25/18 14:50 Respiratory Rate 18 02/25/18 14:50 Blood Pressure 118/70 02/25/18 14:50 O2 Sat by Pulse Oximetry (%) 97 02/25/18 08:55 Constitutional: Yes: No Distress, Calm Cardiovascular: Yes: Regular Rate and Rhythm Respiratory: Yes: Regular, Poor Air Entry Gastrointestinal: Yes: Normal Bowel Sounds, Soft Musculoskeletal: Yes: WNL Extremities: Yes: WNL Neurological: Yes: Alert, Other Labs: CBC, BMP 02/23/18 07:30 02/23/18 07:55 INR, PTT INR 1.14 (0.83-1.09) H 02/20/18 06:15 Assessment/Plan ams lethargy cough fever bleeding p/r plan stable off of abx continue current mgmt incentive leanne rest as per the team
[2018-02-25 20:43] VITALS: BP 90/47; PULSE 58; TEMP 97.2
== END 2018-02-25 20:40 | DRG 137 ==
LOC: JER 18:05 → JERBED 23:43 → INTOOBSV 23:43 → J7W 02-15 05:41 → OBSVTOIN 02-16 10:56
PROVIDERS: ADMIT Internal Medicine; ATTEND Internal Medicine
DX: J69.0 Pneumonitis due to inhalation of food and vomit (principal); B00.4 Herpesviral encephalitis; G92 Toxic encephalopathy; R53.2 Functional quadriplegia; D69.6 Thrombocytopenia, unspecified; I95.9 Hypotension, unspecified; F72 Severe intellectual disabilities; Z93.1 Gastrostomy status; R13.10 Dysphagia, unspecified; G80.8 Other cerebral palsy; J45.909 Unspecified asthma, uncomplicated; K21.9 Gastro-esophageal reflux disease without esophagitis; G40.909 Epilepsy, unspecified, not intractable, without status epilepticus; M62.441 Contracture of muscle, right hand; M62.442 Contracture of muscle, left hand; M62.462 Contracture of muscle, left lower leg; M62.461 Contracture of muscle, right lower leg; R74.0 Nonspecific elevation of levels of transaminase and lactic acid dehydrogenase [LDH]; R31.9 Hematuria, unspecified; R07.9 Chest pain, unspecified; R06.03 Acute respiratory distress; R09.02 Hypoxemia; E16.2 Hypoglycemia, unspecified; R04.0 Epistaxis; K92.1 Melena; Z74.01 Bed confinement status; E87.6 Hypokalemia; E87.0 Hyperosmolality and hypernatremia; E83.39 Other disorders of phosphorus metabolism; K59.09 Other constipation; R16.1 Splenomegaly, not elsewhere classified
CPT/HCPCS: 36415; 70450-TC; 71045-TC-FY; 71250-TC; 74018-TC-FY; 74019-TC-FY; 74176-TC; 76705-TC; 80048; 80053; 80076; 80175; 81003; 81015; 82272; 82550; 82803; 82962; 83605; 83735; 83880; 84100; 84146; 84484; 85025; 85027; 85610; 85730; 86850; 86900; 86901; 87040; 87070; 87086; 87186; 87205; 87804; 87899; 93005; 93010; 94640; 95816; 99285-25; G0378; G0480; J0131; J0475; J7030; J7620

== ENCOUNTER 2018-03-19 06:59 | Inpatient (IN) | payer OTHER ==
[2018-03-19] MEDS ORDERED: ALBUTEROL SO4 2.5/IPRATROPIUM 0.5 INH SOL 3 ML VIAL.NEB. NEB ONE ×3 (07:15→12:09)
[2018-03-19] MEDS ORDERED: methylPREDNISolone NA SUCC 125 MG/2 ML VIAL IVPB ONE (07:25)
[2018-03-19] MEDS ORDERED: PIPERACILLIN/TAZOB 3.375 GM 3.375 GM in DEXTROSE 5%-WATER - 50 ML IVPB ONE (07:27)
[2018-03-19] MEDS ORDERED: VANCOMYCIN 1 GRAM (PRE-DOCKED) 1,000 MG/250 ML BAG IVPB ONE ×2 (07:27→07:42)
[2018-03-19] MEDS: ALBUTEROL SO4 2.5/IPRATROPIUM 0.5 INH SOL 3 ML VIAL.NEB. NEB SCH ×5 (07:30→20:35)
[2018-03-19] MEDS ORDERED: SODIUM CHLORIDE 1,000 ML IV STA (07:41)
--- NOTE | 2018-03-19 07:42 | PDOC ---
Attending Attestation - Medical Decision Making 03/19/18 10:01 Cathy Lanier: (c) [phone] Christina (Grandmother): [phone] Home: <AlanaNegra - Last Filed: 03/19/18 10:01> - Resident Resident Name: JefersonDb - ED Attending Attestation I have performed the following: I have examined & evaluated the patient, The case was reviewed & discussed with the resident, I agree w/resident's findings & plan, Exceptions are as noted - HPI HPI: 03/19/18 15:24 22 years old past medical history significant for herpes encephalitis, severe MR , seizures, asthma, multiple prior intubations sent from urgent for hypoxia and hypothermia. Patient nonverbal at baseline accompanied by rest. Normally interactive cheerful Unable to obtain additional history from patient. - Physicial Exam PE: 03/19/18 15:24 Vitals: Triage Vital signs reviewed General Appearance: Mild respiratory distress Head: Atraumatic, Throat: Posterior oropharynx without erythema, mucous membranes moist, Neck: Supple;No Nucal rigidity Chest Wall: Nontender Cardiac: Regular rate and rhythym, no murmurs, no rubs, no gallops, Lungs: Mild wheezing crackles B/L Abdomen: Soft, non distended, normal bowel sounds, non tender to palpation Extremities: Full range of motion to all extremities, no cyanosis, clubbing, or edema Skin: Warm and dry, no rashes or lesions, no rash, no petechiae Neuro: Contracted - Critical Care Time Total Critical Care Time: 35 Critical Care Statement: The care of this patient involved high complexity decision making to prevent further life threatening deterioration of the patient 's condition and/or to evaluate & treat vital organ system(s) failure or risk of failure. - Medical Decision Making Moderate respiratory distress and patient required multiple previous intubations. Patient treated with continued BiPAP nebulized Ventolin, Solu-Medrol X-ray shows new pneumonia We'll treat with broad-spectrum antibiotics. We'll admit to ICU given multiple intubations in the past and persistent tachypnea. <Car Johnson - Last Filed: 03/19/18 15:40>
[2018-03-19] MEDS ORDERED: methylPREDNISolone NA SUCC 125 MG/2 ML VIAL ONE (07:43)
[2018-03-19] MEDS ORDERED: PIPERACILLIN/TAZOB 3.375 GM 3.375 GM/50 ML BAG IVPB ONE (07:43)
--- NOTE | 2018-03-19 07:44 | PDOC ---
History of Present Illness - General Chief Complaint: Shortness of Breath Stated Complaint: DIFFICULTY BREATHING Time Seen by Provider: 03/19/18 07:10 History Source: EMS, [facility] Records, Old Records Exam Limitations: No Limitations - History of Present Illness Initial Comments: 03/19/18 07:44 Patient is 22M with history of herpes encephalitis, severe MR, seizures, asthma , report of intubation in the past, chronically on bipap, here today after reports of hypoxia to the 80s at his facility ([facility]). Per EMS, patient's baseline is laughing frequently and happy. Facility staff says that he's not at baseline, more tired appearing than usual. EMS reports patient was hypothermic at his facility. Patient is unable to provide history. Past History - Past Medical History Allergies/Adverse Reactions: Allergies Allergy/AdvReac Type Severity Reaction Status Date / Time No Known Allergies Allergy Verified 03/19/18 07:05 Home Medications: Ambulatory Orders Acyclovir 400 mg GT BID 04/25/17 Baclofen 10 mg GT BID 04/25/17 Benzoyl Peroxide 5% Gel - 1 applic TP BID 04/25/17 Budesonide/Formeterol Fumarate [SYMBICORT 160/4.5mcg -] 1 inh PO BID 04/25/17 Clobazam [Onfi -] 5 mg GT DAILY 04/25/17 Clonazepam 1.5 mg GT TID 04/25/17 Fluticasone Propionate [Flovent Diskus] 50 mcg IH DAILY 04/25/17 Fructooligosaccharides/Polydex [Fiber-Stat 15 gm/30 ml Liquid] 15 gm GT DAILY Ipratropium/Albuterol Sulfate [Iprat-Albut 0.5-3(2.5) mg/3 ml] 3 ml IH Q6H 04/25 Lactobacillus Acidophilus [Acidophilus] 1 each GT HS 04/25/17 Lamotrigine 200 mg GT BID 04/25/17 Magnesium Hydrox 2400MG/30Ml [Milk of Magnesia -] 20 ml GT BID 04/25/17 Multivitamin [Poly-Vitamin] 1 each GT DAILY 04/25/17 Phenobarbital 48.6 mg GT BID 04/25/17 Ranitidine [Zantac -] 75 mg GT BID 04/25/17 Anemia: No Asthma: Yes Cancer: No Cardiac Disorders: No CVA: No COPD: No CHF: No Dementia: No Diabetes: No GI Disorders: Yes (DYSPHAGIA. CONSTIPATION. GERD.) Disorders: No HTN: No Hypercholesterolemia: No Liver Disease: No Seizures: Yes (EPILEPSY) Thyroid Disease: No Other medical history: Encephalitis, chronic hypothermia - Surgical History Abdominal Surgery: Yes (GT PLACEMENT) Appendectomy: No Cardiac Surgery: No Cholecystectomy: No Lung Surgery: No Neurologic Surgery: No Orthopedic Surgery: No - Suicide/Smoking/Psychosocial Hx Smoking Status: No Smoking History: Never smoked Have you smoked in the past 12 months: No Number of Cigarettes Smoked Daily: 0 Hx Alcohol Use: No Drug/Substance Use Hx: No Substance Use Type: None Review of Systems - Review of Systems Able to Perform ROS?: No (2/2 clinical condition) *Physical Exam - Vital Signs Last Vital Signs Temp Pulse Resp BP Pulse Ox 86 36 H 107/71 95 03/19/18 07:05 03/19/18 07:05 03/19/18 07:05 03/19/18 07:05 - Physical Exam Comments: 03/19/18 07:51 GENERAL: Awake, alert, not communicative, in acute distress HEAD: No signs of trauma, head consistent with genetic disorder EYES: PERRLA, sclera anicteric, conjunctiva clear ENT: Auricles normal inspection, hearing grossly normal, nares patent, oropharynx clear without exudates. Moist mucosa NECK: Normal ROM, supple, no lymphadenopathy, JVD, or masses LUNGS: Tachypneic, wheezing, coarse breath sounds bilaterally HEART: Regular rate and rhythm, normal S1 and S2, no murmurs, rubs or gallops, peripheral pulses normal and equal bilaterally. ABDOMEN: Soft, nontender, normoactive bowel sounds. G tube in place EXTREMITIES: Contracted, no signs of injury, no edema NEUROLOGICAL: Moves all extremities, opens eyes to voice, follows across room. SKIN: Warm, Dry, normal turgor, no rashes or lesions noted. ED Treatment Course - LABORATORY CBC & Chemistry Diagram: 03/19/18 07:36 03/19/18 07:36 - RADIOLOGY Radiology Studies Ordered: Category Date Time Status CHEST X-RAY PORTABLE* [RAD] Stat Radiology 03/19/18 07:10 Ordered Medical Decision Making - Medical Decision Making 03/19/18 07:56 Patient is 22M with history of herpes encephalitis, severe MR, seizures, asthma , report of intubation in the past, chronically on bipap here today with respiratory distress. Vitals notable for hypothermia and tachypnea. SIRS with likely lung source, septic workup initiated. Borderline hypotensive. Will give fluids, warm blankets, vanc, zosyn, solumedrol. 3 duonebs given with little improvement. 3 additional duonebs given. Will give mag. On bipap, satting 97-99% . 03/19/18 08:24 X-ray limited by patient rotation, ?LLL infiltrate. Combined with leukocytosis, believe patient likely has pneumonia. CXR also shows dilated loops of bowel, believe this is likely due to dysphagia and bipap. Abdomen is soft and nontender. Do not believe patient has intraabdominal process. Last MAP 63. Giving 30cc/kg bolus already (1L is ~30cc/kg). 03/19/18 08:44 Lactate normal. CMP shows glucose of 51, given d50 as patient cannot take PO. Blood pressures at MAP of 65. 03/19/18 09:45 Latest BP MAP 73, patient improving. D/w admitting team and ICU team, patient is safe for tele. Will admit. D/w Dr Peña and Dr Dwyer. *DC/Admit/Observation/Transfer Diagnosis at time of Disposition: Pneumonia - Discharge Dispostion Condition at time of disposition: Stable Decision to Admit order: Yes - Referrals Referrals: Jose Luis Valentino Jr [Primary Care Provider] - - Patient Instructions - Post Discharge Activity
[2018-03-19 07:56] LABS: BASO % 0.2 % (0-2.0); HEMATOCRIT 39.7 % (35.4-49); LYMPH % 4.7 % (8-40); MCH 33.7 pg (25.7-33.7); MCHC 32.7 g/dl (32.0-35.9); MEAN PLT VOLUME 11.3 fl (7.5-11.1); MONO % 2.6 % (3.8-10.2); NEUT % 92.5 % (42.8-82.8); PLATELET COUNT 124 K/MM3 (134-434); RBC 3.86 M/mm3 (4.00-5.60); RDW 17.3 % (11.9-15.9); WHITE BLOOD COUNT 18.8 K/mm3 (4.0-10.0)
[2018-03-19] MEDS: ALBUTEROL SO4 0.083% IH SOL 2.5 MG/3 ML VIAL.NEB. NEB SCH ×4 (08:00→08:55)
[2018-03-19 08:17] LABS: ALBUMIN 3.5 g/dl (3.4-5.0); ALK PHOS 324 U/L (45-117); ANION GAP 7 MMOL/L (8-16); BILIRUBIN,TOTAL 0.1 mg/dL (0.2-1); BLOOD UREA NITROGEN 21 mg/dL (7-18); CALCIUM 9.1 mg/dL (8.5-10.1); CHLORIDE 100 mmol/L (98-107); CO2 29 mmol/L (21-32); CREATININE 0.7 mg/dL (0.55-1.3); GLUCOSE,RANDOM 51 mg/dL (74-106); POTASSIUM 4.1 mmol/L (3.5-5.1); SGOT/AST 62 U/L (15-37); SGPT/ALT 80 U/L (13-61); SODIUM 136 mmol/L (136-145); TOT PROT 8.6 g/dl (6.4-8.2)
[2018-03-19 08:24] LABS: VENOUS PC02 48.3 mmHg (38-52); VENOUS PH 7.39 (7.32-7.42); VENOUS PO2 70.5 mmHg (28-48)
[2018-03-19 08:31] LABS: INR 1.07 (0.83-1.09); PROTHROMBIN TIME (PATIENT) 12.6 SEC (9.7-13.0)
[2018-03-19] MEDS ORDERED: ALBUTEROL SO4 0.083% IH SOL 2.5 MG/3 ML VIAL.NEB. NEB ONE (08:32)
[2018-03-19] MEDS ORDERED: MAGNESIUM 1GM/D5W - 1 GM/100 ML IVPB IVPB ONE (08:32)
[2018-03-19] MEDS ORDERED: DEXTROSE 50%-WATER - 25 GM/50 ML VIAL IVPUSH ONE (08:33)
[2018-03-19 08:34] LABS: ACTIVATED PTT 41.8 SECONDS (25.2-36.5)
[2018-03-19 08:54] LABS: URINE APPEARANCE SLCLOUDY; URINE BILIRUBIN NEGATIVE (<2.0 mg/dL); URINE COLOR YELLOW; URINE GLUCOSE (UA) NEGATIVE (NEGATIVE); URINE KETONE NEGATIVE (NEGATIVE); URINE LEUK ESTERASE NEGATIVE (NEGATIVE); URINE NITRITE NEGATIVE (NEGATIVE); URINE PROTEIN NEGATIVE (NEGATIVE); URINE UROBILINOGEN NEGATIVE mg/dL (0.2-1.0)
[2018-03-19] MEDS ORDERED: DEXTROSE 50%-WATER 25 GM/50 ML DISP.SYRIN ONE (08:56)
--- NOTE | 2018-03-19 08:56 | PN ---
Teaching Attending Note Name of Resident: oTnny Dwyer ATTENDING PHYSICIAN STATEMENT I saw and evaluated the patient. I reviewed the resident's note and discussed the case with the resident. I agree with the resident's findings and plan as documented. SUBJECTIVE: Pt is a 22 y/o M with PMHx of herpes encephalitis, severe MR, seizures, asthma , from [facility] [place] home, patient is on chronically on NIPPV who was sent from [place] because was found to be hypoxic of (80's) and hypothermia . Pt is nonverbal at baseline but as the rn acute care at bedside , patient is normally cheerful and laughing and is not on his baseline. Limitied hx . OBJECTIVE: Initial Vital Signs Pulse Resp BP Pulse Ox 86 36 H 107/71 95 03/19/18 07:05 03/19/18 07:05 03/19/18 07:05 03/19/18 07:05 Vital Signs Temperature 95.9 F L 03/19/18 08:17 Pulse Rate 89 03/19/18 08:20 Respiratory Rate 26 H 03/19/18 08:20 Blood Pressure 106/48 L 03/19/18 08:36 O2 Sat by Pulse Oximetry (%) 99 03/19/18 07:15 GEN: tachypnic, small stature, contracted LE HEENT: NC AT, dry membranes, on Bipap Neck: supple, no JVD Cardio: s1s2, RRR, tachycardic Pulm: tachypneic , decreased BS BL on bipap. no wheeze, positive for accessory muscle use Abd: soft, NT, nondistended Ext: contracted.pulses are positive CBCD WBC 18.8 K/mm3 (4.0-10.0) H 03/19/18 07:36 RBC 3.86 M/mm3 (4.00-5.60) L 03/19/18 07:36 Hgb 13.0 GM/dL (11.7-16.9) 03/19/18 07:36 Hct 39.7 % (35.4-49) D 03/19/18 07:36 MCV 103.0 fl (80-96) H 03/19/18 07:36 MCHC 32.7 g/dl (32.0-35.9) 03/19/18 07:36 RDW 17.3 % (11.9-15.9) H 03/19/18 07:36 Plt Count 124 K/MM3 (134-434) L D 03/19/18 07:36 MPV 11.3 fl (7.5-11.1) H D 03/19/18 07:36 CMP Sodium 136 mmol/L (136-145) 03/19/18 07:36 Potassium 4.1 mmol/L (3.5-5.1) 03/19/18 07:36 Chloride 100 mmol/L (98-107) 03/19/18 07:36 Carbon Dioxide 29 mmol/L (21-32) 03/19/18 07:36 Anion Gap 7 MMOL/L (8-16) L 03/19/18 07:36 BUN 21 mg/dL (7-18) H 03/19/18 07:36 Creatinine 0.7 mg/dL (0.55-1.3) 03/19/18 07:36 Creat Clearance w eGFR > 60 (>60) 03/19/18 07:36 Random Glucose 51 mg/dL (74-106) L 03/19/18 07:36 Calcium 9.1 mg/dL (8.5-10.1) 03/19/18 07:36 Total Bilirubin 0.1 mg/dL (0.2-1) L 03/19/18 07:36 AST 62 U/L (15-37) H 03/19/18 07:36 ALT 80 U/L (13-61) H 03/19/18 07:36 Alkaline Phosphatase 324 U/L (45-117) H 03/19/18 07:36 Total Protein 8.6 g/dl (6.4-8.2) H 03/19/18 07:36 Albumin 3.5 g/dl (3.4-5.0) 03/19/18 07:36 CARDIAC ENZYMES Troponin I < 0.02 ng/ml (0.00-0.05) 03/19/18 07:36 Current Medications Generic Name Dose Route Start Last Admin Trade Name Freq PRN Reason Stop Dose Admin Magnesium Sulfate/Dextrose 1 100 mls @ 100 mls/hr 03/19/18 07:58 03/19/18 08: 36 gm/ Miscellaneous IVPB 03/19/18 08:57 100 mls/hr ONCE ONE Administration Home Medications Medication Instructions Recorded Acyclovir 400 mg GT BID 04/25/17 Baclofen 10 mg GT BID 04/25/17 Benzoyl Peroxide 5% Gel - 1 applic TP BID 04/25/17 Budesonide/Formeterol Fumarate 1 inh PO BID 04/25/17 [SYMBICORT 160/4.5mcg -] Clobazam [Onfi -] 5 mg GT DAILY 04/25/17 Clonazepam 1.5 mg GT TID 04/25/17 Fluticasone Propionate [Flovent 50 mcg IH DAILY 04/25/17 Diskus] Fructooligosaccharides/Polydex 15 gm GT DAILY 04/25/17 [Fiber-Stat 15 gm/30 ml Liquid] Ipratropium/Albuterol Sulfate 3 ml IH Q6H 04/25/17 [Iprat-Albut 0.5-3(2.5) mg/3 ml] Lactobacillus Acidophilus 1 each GT HS 04/25/17 [Acidophilus] Lamotrigine 200 mg GT BID 04/25/17 Magnesium Hydrox 2400MG/30Ml [Milk 20 ml GT BID 04/25/17 of Magnesia -] Multivitamin [Poly-Vitamin] 1 each GT DAILY 04/25/17 Phenobarbital 48.6 mg GT BID 04/25/17 Ranitidine [Zantac -] 75 mg GT BID 04/25/17 CXR: [id number] EXAM#: TYPE/EXAM: RESULT: [id number] RAD/CHEST X-RAY PORTABLE* AP CHEST : Sepsis Imaging reveals markedly distended bowel loops with large heart and a mixture of congestive and infiltrative changes. The patient is rotated to the left. There is little change since 02/20/2018. Reported By: Clifford Murrieta MD 03/19/18 0831 ASSESSMENT AND PLAN: Patient is a 22yo M with PMHx of MR, CP, herpetic mengioencephalitis and asthma from [facility] presented to the ER with sepsis, hypothermic, and was found to be not to himself as per aid at the [facility]. # acute over chronic hypoxic respiratory failure due to aspiratin PNA also uses bipap chronically at the [facility]. # Possible aspiration Pneumonia on Vancomycin/zosyn in ED. ID consult and Pulmonary consult, will get RSV, Flu swab #Distended Bowel Loops; Hold the G-feeding for now. GI consult # Sepsis due to possible to aspiration Pneumonia, Hypothermic will apply josh cruz if needed # Hypothermia will check TSH FT4 level as well # Acute toxic metabilic encephalopathy- likely due to being post-ictal after seizure vs infection. now returned to baseline. # Hx of Fecal retention with pseudo-obstruction # Transaminitis- possible to sepsis, will monitor # Hx of MR # Hx of asthma- cont inhalers DVT ppx- lovenox admit to ICU critical care time of 35m
[2018-03-19] MEDS ORDERED: PHENOBARBITAL GT SCH ×2 (10:00→10:30)
[2018-03-19] MEDS ORDERED: BACLOFEN 10 MG TABLET (FP) GT SCH (10:00)
[2018-03-19] MEDS ORDERED: cloBAZam 10 MG TABLET GT SCH (10:00)
[2018-03-19] MEDS ORDERED: HEPARIN NA (PORCINE) 5,000 UNITS/ML 1ML VIAL SQ SCH (10:00)
[2018-03-19] MEDS ORDERED: SODIUM CHLORIDE 1,000 ML IV SCH ×2 (10:00→16:44)
[2018-03-19] MEDS ORDERED: BENZOYL PEROXIDE 5% 60 GM GEL..GRAM. TP SCH (10:00)
--- NOTE | 2018-03-19 10:12 | HP ---
CHIEF COMPLAINT: dest/hypothermia at [facility] PCP: Chicho HISTORY OF PRESENT ILLNESS: Pt is a 22 y/o M with PMH herpes encephalitis, severe MR, seizures, asthma, prior intubation , chronically on NIPPV who was sent from [facility] because of hypoxia (80's) and hypothermia (95F). Pt is nonverbal at baseline but was accompanied by [facility] livestock sales representative who assures that pt is normally cheerful and laughing and currently looks different from baseline. Was not able to provide further history. ER course was notable for: (1) rectal temp 95, tachypnic in 30s and 40s, HR in 90s (2) WBC 18, plt 124, BUN 21, AST 62, ALT 80, AlkP 324 (chronic LFTs) (3) Vanc, Zosyn, solumedrol, Mg, ventolin, duonebs, NS Recent Travel: no PAST MEDICAL HISTORY: as above PAST SURGICAL HISTORY: G tube Social History: Smoking: no Alcohol: no Drugs: no Family History: Allergies No Known Allergies Allergy (Verified 03/19/18 07:05) HOME MEDICATIONS: Home Medications Medication Instructions Recorded Acyclovir 400 mg GT BID 04/25/17 Baclofen 10 mg GT BID 04/25/17 Benzoyl Peroxide 5% Gel - 1 applic TP BID 04/25/17 Budesonide/Formeterol Fumarate 1 inh PO BID 04/25/17 [SYMBICORT 160/4.5mcg -] Clobazam [Onfi -] 5 mg GT DAILY 04/25/17 Clonazepam 1.5 mg GT TID 04/25/17 Fluticasone Propionate [Flovent 50 mcg IH DAILY 04/25/17 Diskus] Fructooligosaccharides/Polydex 15 gm GT DAILY 04/25/17 [Fiber-Stat 15 gm/30 ml Liquid] Ipratropium/Albuterol Sulfate 3 ml IH Q6H 04/25/17 [Iprat-Albut 0.5-3(2.5) mg/3 ml] Lactobacillus Acidophilus 1 each GT HS 04/25/17 [Acidophilus] Lamotrigine 200 mg GT BID 04/25/17 Magnesium Hydrox 2400MG/30Ml [Milk 20 ml GT BID 04/25/17 of Magnesia -] Multivitamin [Poly-Vitamin] 1 each GT DAILY 12/16/17 Phenobarbital 48.6 mg GT BID 04/25/17 Ranitidine [Zantac -] 75 mg GT BID 04/25/17 REVIEW OF SYSTEMS Unobtainable PHYSICAL EXAMINATION Vital Signs - 24 hr 03/19/18 03/19/18 03/19/18 07:05 07:15 08:17 Temperature 95.9 F L Pulse Rate 86 Pulse Rate [ Right] Respiratory 36 H Rate Blood Pressure 107/71 Blood Pressure [Right Arm] O2 Sat by Pulse 95 99 Oximetry (%) 03/19/18 03/19/18 03/19/18 08:20 08:36 09:02 Temperature Pulse Rate Pulse Rate [ 89 92 H Right] Respiratory 26 H 22 H Rate Blood Pressure Blood Pressure 100/45 L 106/48 L 101/60 [Right Arm] O2 Sat by Pulse Oximetry (%) Limited exam GEN: tachypnic, small stature, contracted LE HEENT: NCAT, dry membranes (? due to bipap) Neck: supple Cardio: s1s2, rrr, no mrg appreciated Pulm: coarse breath sounds diffusely on bipap. Tachypnic. No clear rales/ronchi appreciated Abd: nondistended, soft, nontender Ext: contracted, underdeveloped Laboratory Results - last 24 hr 03/19/18 03/19/18 03/19/18 07:15 07:36 07:36 WBC 18.8 H RBC 3.86 L Hgb 13.0 Hct 39.7 D MCV 103.0 H MCH 33.7 MCHC 32.7 RDW 17.3 H Plt Count 124 L D MPV 11.3 H D Absolute Neuts (auto) 17.4 H Neutrophils % 92.5 H D Lymphocytes % 4.7 L D Monocytes % 2.6 L Eosinophils % 0.0 D Basophils % 0.2 Nucleated RBC % 0 PT with INR 12.60 INR 1.07 PTT (Actin FS) 41.8 H VBG pH POC VBG pCO2 POC VBG pO2 Mixed VBG HCO3 Sodium Potassium Chloride Carbon Dioxide Anion Gap BUN Creatinine Creat Clearance w eGFR Random Glucose Lactic Acid Calcium Total Bilirubin AST ALT Alkaline Phosphatase Troponin I Total Protein Albumin Urine Color Yellow Urine Appearance Slcloudy Urine pH 9.0 H Ur Specific [place] 1.015 Urine Protein Negative Urine Glucose (UA) Negative Urine Ketones Negative Urine Blood Negative Urine Nitrite Negative Urine Bilirubin Negative Urine Urobilinogen Negative Ur Leukocyte Esterase Negative 03/19/18 03/19/18 03/19/18 07:36 07:36 07:36 WBC RBC Hgb Hct MCV MCH MCHC RDW Plt Count MPV Absolute Neuts (auto) Neutrophils % Lymphocytes % Monocytes % Eosinophils % Basophils % Nucleated RBC % PT with INR INR PTT (Actin FS) VBG pH 7.39 POC VBG pCO2 48.3 POC VBG pO2 70.5 H D Mixed VBG HCO3 28.9 H Sodium 136 Potassium 4.1 Chloride 100 Carbon Dioxide 29 Anion Gap 7 L BUN 21 H Creatinine 0.7 Creat Clearance w eGFR > 60 Random Glucose 51 L Lactic Acid 1.0 Calcium 9.1 Total Bilirubin 0.1 L AST 62 H ALT 80 H Alkaline Phosphatase 324 H Troponin I Total Protein 8.6 H Albumin 3.5 Urine Color Urine Appearance Urine pH Ur Specific [place] Urine Protein Urine Glucose (UA) Urine Ketones Urine Blood Urine Nitrite Urine Bilirubin Urine Urobilinogen Ur Leukocyte Esterase 03/19/18 07:36 WBC RBC Hgb Hct MCV MCH MCHC RDW Plt Count MPV Absolute Neuts (auto) Neutrophils % Lymphocytes % Monocytes % Eosinophils % Basophils % Nucleated RBC % PT with INR INR PTT (Actin FS) VBG pH POC VBG pCO2 POC VBG pO2 Mixed VBG HCO3 Sodium Potassium Chloride Carbon Dioxide Anion Gap BUN Creatinine Creat Clearance w eGFR Random Glucose Lactic Acid Calcium Total Bilirubin AST ALT Alkaline Phosphatase Troponin I < 0.02 Total Protein Albumin Urine Color Urine Appearance Urine pH Ur Specific [place] Urine Protein Urine Glucose (UA) Urine Ketones Urine Blood Urine Nitrite Urine Bilirubin Urine Urobilinogen Ur Leukocyte Esterase ASSESSMENT/PLAN: Pt is a 22 y/o M with PMH herpes encephalitis, severe MR, seizures, asthma, report of intubation in the past, chronically on NIPPV who was sent from [facility] for hypoxia/hypothermia. Pt admitted for sepsis and resp distress. #Sepsis -WBC 18, tachypnea, hypothermia -? aspiration considering unremarkable UA, chronic use of NIPPV, and recent hypoxia -CXR read as having congestive & infiltritive changes -Vanc/Zosyn, NS, Solumedrol, Duonebs given in ED -ID consulted. Spoke with Dr. Douglas -BCx, UCx pending -c/w Zosyn q8 pending further input from ID #Resp distress/Hypoxia with asthma -pt chronically uses NIPPV at [place] -on NIPPV currently. O2 sat 99% on FiO2 60% -Tachypnic to 30s and 40s. NIPPV settings IPAP 10, EPAP 4, FiO2 60. IPAP increased to 12, EPAP increased to 6 -Monitor for persistent tachypnea -c/w duonebs -Pulm consulted #Seizure disorder -c/w home meds -klonopin, lamictal, Phenobarbital #FEN -NS -lytes wnl -NPO except meds. No g-tube feeds #PPx -Hep SubQ #Dispo -Tele Tonny Dwyer MD PGY-2 IM Visit type - Emergency Visit Emergency Visit: Yes ED Registration Date: 03/19/18 Care time: The patient presented to the Emergency Department on the above date and was hospitalized for further evaluation of their emergent condition. - New Patient This patient is new to me today: Yes Date on this admission: 03/19/18 - Critical Care Critical Care patient: No
[2018-03-19] MEDS ORDERED: BACLOFEN 10 MG TABLET (FP) ONE (10:43)
[2018-03-19] MEDS ORDERED: HEPARIN NA (PORCINE) 5,000 UNITS/ML 1ML VIAL ONE (10:43)
[2018-03-19] MEDS ORDERED: cloBAZam 10 MG TABLET ONE (11:26)
[2018-03-19] MEDS ORDERED: ALBUTEROL SO4 2.5/IPRATROPIUM 0.5 INH SOL 3 ML VIAL.NEB. NEB SCH (12:00)
--- NOTE | 2018-03-19 12:13 | CON.ID ---
Consult Consult Specialty:: infectious diseases Reason for Consultation:: sepsis - History of Present Illness Chief Complaint: hypoxia History of Present Illness: 22 y/o M with PMH herpes encephalitis, severe MR, seizures, asthma, prior intubation , chronically on NIPPV who was sent from [place] because of hypoxia (80's) and hypothermia (95F). Pt is nonverbal at baseline but was accompanied by [facility] telephone services sales representative who assures that pt is normally cheerful and laughing and currently looks different from baseline. Was not able to provide further history. patients history taken from the charts ad the attendant patient known to me from last admission and now patient on this admission is much more serious and has been placed on bipap which he is needing also patient was more hypothermic - History Source History Provided By: Medical Record Limitations to Obtaining History: Clinical Condition - Past Medical History T[employer]ER: Yes: Other (Mental retardation, cerebral palsy) Pulmonary: Yes: Asthma Gastrointestinal: Yes: Other (gastrostomy) Infectious Disease: Yes: Herpes Zoster Musculoskeletal: Yes: Other (Functional Qaudraplegic) - Alcohol/Substance Use Hx Alcohol Use: No - Smoking History Smoking history: Never smoked Have you smoked in the past 12 months: No Aproximately how many cigarettes per day: 0 - Social History Usual Living Arrangement: Retirement ADL: Support Services History of Recent Travel: No Home Medications - Allergies Allergies/Adverse Reactions: Allergies Allergy/AdvReac Type Severity Reaction Status Date / Time No Known Allergies Allergy Verified 03/19/18 07:05 - Home Medications Home Medications: Ambulatory Orders Acyclovir 400 mg GT BID 04/25/17 Baclofen 10 mg GT BID 04/25/17 Benzoyl Peroxide 5% Gel - 1 applic TP BID 04/25/17 Budesonide/Formeterol Fumarate [SYMBICORT 160/4.5mcg -] 1 inh PO BID 04/25/17 Clobazam [Onfi -] 5 mg GT DAILY 04/25/17 Clonazepam 1.5 mg GT TID 04/25/17 Fluticasone Propionate [Flovent Diskus] 50 mcg IH DAILY 04/25/17 Fructooligosaccharides/Polydex [Fiber-Stat 15 gm/30 ml Liquid] 15 gm GT DAILY Ipratropium/Albuterol Sulfate [Iprat-Albut 0.5-3(2.5) mg/3 ml] 3 ml IH Q6H 04/25 Lactobacillus Acidophilus [Acidophilus] 1 each GT HS 04/25/17 Lamotrigine 200 mg GT BID 04/25/17 Magnesium Hydrox 2400MG/30Ml [Milk of Magnesia -] 20 ml GT BID 04/25/17 Multivitamin [Poly-Vitamin] 1 each GT DAILY 04/25/17 Phenobarbital 48.6 mg GT BID 04/25/17 Ranitidine [Zantac -] 75 mg GT BID 04/25/17 Review of Systems Unable to obtain ROS, reason: unable to obtain Physical Exam Vital Signs: Vital Signs Temperature 96.0 F L 03/19/18 10:55 Pulse Rate 96 H 03/19/18 10:55 Respiratory Rate 38 H 03/19/18 10:55 Blood Pressure 112/61 03/19/18 10:55 O2 Sat by Pulse Oximetry (%) 98 03/19/18 10:55 Constitutional: Yes: Other Cardiovascular: Yes: Regular Rate and Rhythm, Tachycardia Respiratory: Yes: On BiPap, Other Gastrointestinal: Yes: Normal Bowel Sounds, Soft Musculoskeletal: Yes: WNL Extremities: Yes: Other (contracted) Neurological: Yes: Other Psychiatric: Yes: Other Labs: CBC, BMP 03/19/18 07:36 03/19/18 07:36 Imaging - Results Chest X-ray: Report Reviewed, Image Reviewed Assessment/Plan Acute on Chronic Respiratory Failure R/O PNA Severe MR Cerebral palsy Herpetic meningoencephalitis (?) Asthma Increased LFTs plan continue bipap support will start on zosyn secretion suction await for all cx temp monitoring icu monitoring follow imaging studies cc 45 min
[2018-03-19 12:18] LABS: ANISOCYTOSIS 1+; MACROCYTOSIS 1+; PLATELET ESTIMATE DECREASED
--- NOTE | 2018-03-19 12:33 | CONSULT ---
Consultation: REQUESTING PROVIDER: CONSULT REQUEST: We have been asked to medically evaluate this patient for Acute hypoxic respiratory failure on Bipap might need intubation. HISTORY OF PRESENT ILLNESS: Patient is nonverbal at baseline.. History taken from [facility] aide at bedside. Patient is a 22 year old male brought in to the ED from [facility] for evaluation of fever, hypoxia not responding to Oxygen. As per the health aid at bed side, he is a happy person, active and is always laughing/smiling. At baseline his core body temperature is around 95-96 F and has to wear warm clothes to keep him warm. He was apparently well and at his baseline two days ago, then he started having fever, saturation was decreased not improving with oxygen and followed by vomiting and possibly aspirated. Hence brought in to the ED for further evaluation. In [place], he is on Bipap overnight and during the day on Bipap for 2hrs from 12-2 pm. Only gets tachypenic when he is excited. Patient was recently admitted 02/15/18-02/24/18 for AMS due to seizures. CT head was negative. Also was evaluated for thrombocytopenia Patient seen and examined in the ED. He was on Bipap IPAP/EPAP 10/5 Fio2 65 %. Vitals at that time: BP 128/81 mmHg; P-107 bpm; RR 50; Spo2-92 %. Since he is tachypenic, has labored breathing, will admit in ICU for close monitoring. Patient is Full Code, confirmed by the ED physician who spoke with the patients mother. Recent Travel: Unable to obtain PAST MEDICAL HISTORY: Severe MR; cerebral palsy; Herpetic meningoencephalitis; Asthma PAST SURGICAL HISTORY: Unable to obtain Social History: Unable to obtain Family History: Unable to obtain Allergies: NKDA REVIEW OF SYSTEMS: Unable to obtain PHYSICAL EXAMINATION Vital Signs - 24 hr 03/19/18 03/19/18 03/19/18 07:05 07:15 08:17 Temperature 95.9 F L Pulse Rate 86 Pulse Rate [ Right] Respiratory 36 H Rate Blood Pressure 107/71 Blood Pressure [Right Arm] O2 Sat by Pulse 95 99 Oximetry (%) 03/19/18 03/19/18 03/19/18 08:20 08:36 09:02 Temperature Pulse Rate Pulse Rate [ 89 92 H Right] Respiratory 26 H 22 H Rate Blood Pressure Blood Pressure 100/45 L 106/48 L 101/60 [Right Arm] O2 Sat by Pulse Oximetry (%) 03/19/18 03/19/18 10:24 10:55 Temperature 96.0 F L Pulse Rate Pulse Rate [ 99 H 96 H Right] Respiratory 18 38 H Rate Blood Pressure Blood Pressure 110/64 112/61 [Right Arm] O2 Sat by Pulse 99 98 Oximetry (%) GENERAL: Nonverbal at baseline, on Bipap with a RR in 50's. HEAD: Microocephalic, atraumatic. EYES: No pallor or icterus. EARS, NOSE, THROAT: Normal. LUNGS: Coarse breath sounds b/l. No wheeze, using accessory muscles. HEART: Regular rate and rhythm, normal S1 and S2 with soft systolic murmur ABDOMEN: G tube in place. Soft, nontender to palpation, normoactive bowel sounds MUSCULOSKELETAL: Contracted extremities NEUROLOGICAL: Nonverbal, unable to interact or follow commands LOWER EXTREMITY: No pedal edema. Laboratory Results - last 24 hr 03/19/18 03/19/18 03/19/18 07:15 07:36 07:36 WBC 18.8 H RBC 3.86 L Hgb 13.0 Hct 39.7 D MCV 103.0 H MCH 33.7 MCHC 32.7 RDW 17.3 H Plt Count 124 L D MPV 11.3 H D Absolute Neuts (auto) 17.4 H Neutrophils % 92.5 H D Neutrophils % (Manual) 89.3 H D Band Neutrophils % 1.0 Lymphocytes % 4.7 L D Lymphocytes % (Manual) 8.7 D Monocytes % 2.6 L Monocytes % (Manual) 0 L D Eosinophils % 0.0 D Eosinophils % (Manual) 0.0 Basophils % 0.2 Basophils % (Manual) 0.0 Myelocytes % (Man) 0 Promyelocytes % (Man) 0 Blast Cells % (Manual) 0 Nucleated RBC % 0 Metamyelocytes 1 Hypochromia 0 Platelet Estimate Decreased Polychromasia 0 Poikilocytosis 0 Anisocytosis 1+ Microcytosis 0 Macrocytosis 1+ PT with INR 12.60 INR 1.07 PTT (Actin FS) 41.8 H VBG pH POC VBG pCO2 POC VBG pO2 Mixed VBG HCO3 Sodium Potassium Chloride Carbon Dioxide Anion Gap BUN Creatinine Creat Clearance w eGFR Random Glucose Lactic Acid Calcium Total Bilirubin AST ALT Alkaline Phosphatase Troponin I Total Protein Albumin TSH Free T4 Urine Color Yellow Urine Appearance Slcloudy Urine pH 9.0 H Ur Specific [place] 1.015 Urine Protein Negative Urine Glucose (UA) Negative Urine Ketones Negative Urine Blood Negative Urine Nitrite Negative Urine Bilirubin Negative Urine Urobilinogen Negative Ur Leukocyte Esterase Negative 03/19/18 03/19/18 03/19/18 07:36 07:36 07:36 WBC RBC Hgb Hct MCV MCH MCHC RDW Plt Count MPV Absolute Neuts (auto) Neutrophils % Neutrophils % (Manual) Band Neutrophils % Lymphocytes % Lymphocytes % (Manual) Monocytes % Monocytes % (Manual) Eosinophils % Eosinophils % (Manual) Basophils % Basophils % (Manual) Myelocytes % (Man) Promyelocytes % (Man) Blast Cells % (Manual) Nucleated RBC % Metamyelocytes Hypochromia Platelet Estimate Polychromasia Poikilocytosis Anisocytosis Microcytosis Macrocytosis PT with INR INR PTT (Actin FS) VBG pH 7.39 POC VBG pCO2 48.3 POC VBG pO2 70.5 H D Mixed VBG HCO3 28.9 H Sodium 136 Potassium 4.1 Chloride 100 Carbon Dioxide 29 Anion Gap 7 L BUN 21 H Creatinine 0.7 Creat Clearance w eGFR > 60 Random Glucose 51 L Lactic Acid 1.0 Calcium 9.1 Total Bilirubin 0.1 L AST 62 H ALT 80 H Alkaline Phosphatase 324 H Troponin I Total Protein 8.6 H Albumin 3.5 TSH Free T4 Urine Color Urine Appearance Urine pH Ur Specific [place] Urine Protein Urine Glucose (UA) Urine Ketones Urine Blood Urine Nitrite Urine Bilirubin Urine Urobilinogen Ur Leukocyte Esterase 03/19/18 07:36 WBC RBC Hgb Hct MCV MCH MCHC RDW Plt Count MPV Absolute Neuts (auto) Neutrophils % Neutrophils % (Manual) Band Neutrophils % Lymphocytes % Lymphocytes % (Manual) Monocytes % Monocytes % (Manual) Eosinophils % Eosinophils % (Manual) Basophils % Basophils % (Manual) Myelocytes % (Man) Promyelocytes % (Man) Blast Cells % (Manual) Nucleated RBC % Metamyelocytes Hypochromia Platelet Estimate Polychromasia Poikilocytosis Anisocytosis Microcytosis Macrocytosis PT with INR INR PTT (Actin FS) VBG pH POC VBG pCO2 POC VBG pO2 Mixed VBG HCO3 Sodium Potassium Chloride Carbon Dioxide Anion Gap BUN Creatinine Creat Clearance w eGFR Random Glucose Lactic Acid Calcium Total Bilirubin AST ALT Alkaline Phosphatase Troponin I < 0.02 Total Protein Albumin TSH 4.83 H Free T4 0.87 Urine Color Urine Appearance Urine pH Ur Specific [place] Urine Protein Urine Glucose (UA) Urine Ketones Urine Blood Urine Nitrite Urine Bilirubin Urine Urobilinogen Ur Leukocyte Esterase Active Medications Generic Name Dose Route Start Last Admin Trade Name Davidq PRN Reason Stop Dose Admin Albuterol/Ipratropium 1 amp 03/19/18 12:00 Duoneb - NEB RQID JORGE Baclofen 10 mg 03/19/18 10:00 03/19/18 10:55 Lioresal - GT 10 mg BID JORGE Administration Benzoyl Peroxide 1 applic 03/19/18 10:00 03/19/18 11:20 Benzoyl Peroxide 5% Gel - TP Not Given BID JORGE Chlorhexidine Gluconate 1 applic 03/19/18 22:00 Hibiclens For Decolonization - TP HS JORGE Clobazam 5 mg 03/19/18 10:00 03/19/18 11:27 Onfi - GT 5 mg DAILY JORGE Administration Clonazepam 1.5 mg 03/19/18 14:00 Klonopin - GT TID JORGE Heparin Sodium (Porcine) 5,000 unit 03/19/18 10:00 03/19/18 10:54 Heparin - SQ 5,000 unit Q8H-IV JORGE Administration Sodium Chloride 1,000 mls @ 75 mls/hr 03/19/18 10:00 03/19/18 10:55 Normal Saline - IV 75 mls/hr ASDIR JORGE Administration Piperacillin Sod/Tazobactam 50 mls @ 100 mls/hr 03/19/18 18:00 Sod 3.375 gm/ Dextrose IVPB Q8H-IV JORGE Protocol Lactobacillus Acidophilus 1 tab 03/19/18 22:00 Bacid - GT HS JORGE Lamotrigine 200 mg 03/19/18 10:00 03/19/18 11:20 Lamictal - PO 200 mg BID JORGE Administration Mupirocin 1 applic 03/19/18 22:00 Bactroban Ointment (For Decolonization) - NS 03/24/18 21:59 BID JORGE Phenobarbital 30 mg/ 45 mg 03/19/18 10:30 03/19/18 11:53 Phenobarbital 15 mg GT 45 mg BID JORGE Administration ASSESSMENT/PLAN: Patient is a 22 year old Male with significant past medical history w/ pmhx of severe MR, cerebral palsy, herpetic meningoencephalitis, and asthma who was sent from [place] for Fever and Hypoxia. Respiratory Acute hypoxic respiratory failure likely secondary to sepsis from Pneumonia Currently on Bipap IPAP/EPAP 10/5 Fio2 65 % with a RR of 50's, Spo2 92 % and labored breathing CXR shows Congestive and infiltrative changes Admit in ICU Continue Bipap, will reevalute if he needs Intubation (patient is Full Code) Received IV Vanc and IV Zosyn in the ED. Continue IV Zosyn 3.375 gm Q8H, as per ID (Dr. Douglas) Blood cultures/Urine cultures pending Influenza/ RSV negative Repeat CXR in AM Neurology H/O seizure: no seizure activity noted this admission Continue home medss: Klonopin, lamictal and Phenobarbital Heme Thrombocytopenia Platelet count: 124 Had thrombocytopenia last admission, USG abdomen: mildly enlarged spleen Repeat Platelet count in AM Cardio/Endo/GI no active issues FEN IV NS @ 75 mls.hr Electrolytes will add Mg/Phos in AM labs NPO except meds through G tube Prophylaxis For DVT: On Heparin 5000 IU sq TID For GI: Not indicated Code Status: Full Code Dispo: Admit in ICU for closer monitoring Case discussed with Dr. Price. Thank you for this consultative opportunity. Visit type - Emergency Visit Emergency Visit: Yes ED Registration Date: 03/19/18 Care time: The patient presented to the Emergency Department on the above date and was hospitalized for further evaluation of their emergent condition. - New Patient This patient is new to me today: Yes Date on this admission: 03/19/18 - Critical Care Critical Care patient: Yes Total Critical Care Time (in minutes): 35 Critical Care Statement: The care of this patient involved high complexity decision making to prevent further life threatening deterioration of the patient 's condition and/or to evaluate & treat vital organ system(s) failure or risk of failure.
--- NOTE | 2018-03-19 13:41 | EKG ---
Test Reason : Blood Pressure : / mmHG Vent. Rate : 090 BPM Atrial Rate : 090 BPM P-R Int : 130 ms QRS Dur : 122 ms QT Int : 378 ms P-R-T Axes : 063 029 019 degrees QTc Int : 462 ms POOR DATA QUALITY, INTERPRETATION MAY BE ADVERSELY AFFECTED NORMAL SINUS RHYTHM RIGHT BUNDLE BRANCH BLOCK INFERIOR INFARCT (CITED ON OR BEFORE 26-JUN-2016) ABNORMAL ECG WHEN COMPARED WITH ECG OF 14-FEB-2018 21:21, RIGHT BUNDLE BRANCH BLOCK IS NOW PRESENT Confirmed by JOSH BAUTISTA MD ([id number]) on 03/19/2018 1:40:40 PM Referred By: Confirmed By:JOSH BAUTISTA MD
[2018-03-19] MEDS ORDERED: clonazePAM 0.5 MG TABLET GT SCH (14:00)
[2018-03-19 14:01] LABS: MAGNESIUM 2.8 mg/dL (1.8-2.4); PHOSPHOROUS 3.8 mg/dL (2.5-4.9)
[2018-03-19] MEDS ORDERED: clonazePAM 0.5 MG TABLET ONE (14:31)
[2018-03-19] MEDS ORDERED: PIPERACILLIN/TAZOB 2.25 GM 2.25 GM in DEXTROSE 5%-WATER - 50 ML IVPB SCH (16:00)
[2018-03-19] MEDS ORDERED: PIPERACILLIN/TAZOB 3.375 GM 3.375 GM in DEXTROSE 5%-WATER - 50 ML IVPB SCH (18:00)
[2018-03-19] MEDS ORDERED: PIPERACILLIN/TAZOBACTAM 3.375 GM VIAL IVPB ONE (18:22)
[2018-03-19] MEDS ORDERED: DEXTROSE 5%-WATER - 50 ML IVPB ONE (18:22)
[2018-03-19] MEDS: PIPERACILLIN/TAZOB 3.375 GM 3.375 GM in DEXTROSE 5%-WATER - 50 ML IVPB SCH (18:23)
[2018-03-19] MEDS ORDERED: PHENobarbital 30 MG TABLET ONE (21:35)
[2018-03-19] MEDS ORDERED: PHENobarbital 15 MG TABLET ONE (21:35)
[2018-03-19] MEDS ORDERED: PT OWN MED DRAWER 7, Y5N ONE (21:36)
[2018-03-19] MEDS: LACTOBACILLUS ACIDOPHILUS 1 TABLET GT SCH (21:39)
[2018-03-19] MEDS: PHENOBARBITAL GT SCH (21:39)
[2018-03-19] MEDS: clonazePAM 0.5 MG TABLET GT SCH (21:39)
[2018-03-19] MEDS: HEPARIN NA (PORCINE) 5,000 UNITS/ML 1ML VIAL SQ SCH (21:39)
[2018-03-19] MEDS: CHLORHEXIDINE GLUCONATE 4% CLEANSER FOR DECOLONIZATION TP SCH (21:41)
[2018-03-19] MEDS: MUPIROCIN 2% TOPICAL OINTMENT FOR DECOLONIZATION NS SCH (21:47)
[2018-03-19] MEDS ORDERED: LACTOBACILLUS ACIDOPHILUS 1 TABLET GT SCH (22:00)
[2018-03-19] MEDS: BACLOFEN 10 MG TABLET (FP) GT SCH (23:03)
[2018-03-19] MEDS: BENZOYL PEROXIDE 5% 60 GM GEL..GRAM. TP SCH (23:03)
[2018-03-20] MEDS ORDERED: PIPERACILLIN/TAZOBACTAM 3.375 GM VIAL IVPB ONE ×3 (01:15→17:46)
[2018-03-20] MEDS ORDERED: DEXTROSE 5%-WATER - 50 ML IVPB ONE ×3 (01:15→17:47)
[2018-03-20] MEDS: PIPERACILLIN/TAZOB 3.375 GM 3.375 GM in DEXTROSE 5%-WATER - 50 ML IVPB SCH ×3 (01:16→17:49)
[2018-03-20 06:14] LABS: BASO % 0.2 % (0-2.0); HEMATOCRIT 34.9 % (35.4-49); HEMOGLOBIN 11.3 GM/dL (11.7-16.9); LYMPH % 6.2 % (8-40); MCH 33.5 pg (25.7-33.7); MCHC 32.4 g/dl (32.0-35.9); MEAN CELL VOLUME 103.3 fl (80-96); MEAN PLT VOLUME 10.8 fl (7.5-11.1); NEUT % 90.6 % (42.8-82.8); PLATELET COUNT 98 K/MM3 (134-434); RBC 3.38 M/mm3 (4.00-5.60); RDW 16.9 % (11.9-15.9); WHITE BLOOD COUNT 11.5 K/mm3 (4.0-10.0)
[2018-03-20 06:35] LABS: ARTERIAL BLD GAS O2 SATURATION 98.2 % (90-98.9); ARTERIAL BLOOD GAS BASE EXCESS -0.1 meq/l (-2-2); ARTERIAL BLOOD GAS pH 7.36 (7.35-7.45)
[2018-03-20] MEDS: HEPARIN NA (PORCINE) 5,000 UNITS/ML 1ML VIAL SQ SCH ×3 (06:46→22:25)
[2018-03-20] MEDS: clonazePAM 0.5 MG TABLET GT SCH ×3 (06:46→22:26)
[2018-03-20 07:06] LABS: ALLENS TEST POSITIVE
[2018-03-20] MEDS: ALBUTEROL SO4 2.5/IPRATROPIUM 0.5 INH SOL 3 ML VIAL.NEB. NEB SCH ×4 (09:48→21:30)
[2018-03-20 09:50] LABS: ALK PHOS 289 U/L (45-117); ANION GAP 6 MMOL/L (8-16); BILIRUBIN,TOTAL 0.3 mg/dL (0.2-1); BLOOD UREA NITROGEN 13 mg/dL (7-18); CALCIUM 8.7 mg/dL (8.5-10.1); CHLORIDE 111 mmol/L (98-107); CO2 25 mmol/L (21-32); CREATININE 0.6 mg/dL (0.55-1.3); GLUCOSE,RANDOM 68 mg/dL (74-106); MAGNESIUM 2.5 mg/dL (1.8-2.4); PHOSPHOROUS 3.1 mg/dL (2.5-4.9); POTASSIUM 4.4 mmol/L (3.5-5.1); SGOT/AST 80 U/L (15-37); SGPT/ALT 80 U/L (13-61); SODIUM 142 mmol/L (136-145); TOT PROT 7.8 g/dl (6.4-8.2)
[2018-03-20] MEDS ORDERED: PHENobarbital 30 MG TABLET ONE ×2 (10:02→20:30)
[2018-03-20] MEDS ORDERED: PHENobarbital 15 MG TABLET ONE ×2 (10:03→20:31)
[2018-03-20] MEDS: cloBAZam 10 MG TABLET GT SCH (10:07)
[2018-03-20] MEDS: PHENOBARBITAL GT SCH ×2 (10:08→22:26)
[2018-03-20] MEDS ORDERED: PT OWN MED DRAWER 7, Y5N ONE ×2 (10:12→20:31)
[2018-03-20] MEDS: lamoTRIgine 100 MG TABLET (FP) GT SCH ×2 (10:13→22:25)
[2018-03-20] MEDS: BACLOFEN 10 MG TABLET (FP) GT SCH ×2 (10:14→22:27)
--- NOTE | 2018-03-20 10:20 | PN ---
Teaching Attending Note Name of Resident: Sheri Campbell ATTENDING PHYSICIAN STATEMENT I saw and evaluated the patient. I reviewed the resident's note and discussed the case with the resident. I agree with the resident's findings and plan as documented. SUBJECTIVE: Patient seen and examined in the ICU. Awake on NIPPV (04/15/14RR/50% FiO2). No pressors. Decreased WOB from yesterday. CXR: poor film quality / No gross change in left base opacification/infiltrate. Intake & Output 03/17/18 03/18/18 03/19/18 03/20/18 23:59 23:59 23:59 23:59 Intake Total 200 1000 Balance 200 1000 Weight 91 lb 11.2 oz Last Vital Signs Temp Pulse Resp BP Pulse Ox 98.6 F 83 21 H 107/68 97 03/20/18 10:00 03/20/18 10:00 03/20/18 10:00 03/20/18 10:00 03/20/18 09:49 Active Medications Albuterol/Ipratropium (Duoneb -) 1 amp NEB RQID [facility] Last Admin: 03/20/18 09:48 Dose: 1 amp Baclofen (Lioresal -) 10 mg GT BID [facility] Last Admin: 03/20/18 10:14 Dose: 10 mg Benzoyl Peroxide (Benzoyl Peroxide 5% Gel -) 1 applic TP BID [facility] Last Admin: 03/19/18 23:03 Dose: 1 applic Chlorhexidine Gluconate (Hibiclens For Decolonization -) 1 applic TP HS [facility] Last Admin: 03/19/18 21:41 Dose: 1 applic Clobazam (Onfi -) 5 mg GT DAILY [facility] Last Admin: 03/20/18 10:07 Dose: 5 mg Clonazepam (Klonopin -) 1.5 mg GT TID [facility] Last Admin: 03/20/18 06:46 Dose: 1.5 mg Heparin Sodium (Porcine) (Heparin -) 5,000 unit SQ TID [facility] Last Admin: 03/20/18 06:46 Dose: 5,000 unit Sodium Chloride (Normal Saline -) 1,000 mls @ 75 mls/hr IV ASDIR [facility] Last Admin: 03/19/18 17:00 Dose: 75 mls/hr Piperacillin Sod/Tazobactam (Sod 3.375 gm/ Dextrose) 50 mls @ 100 mls/hr IVPB Q8H-IV JORGE; Protocol Last Admin: 03/20/18 10:05 Dose: 100 mls/hr Lactobacillus Acidophilus (Bacid -) 1 tab GT HS JORGE Last Admin: 03/19/18 21:39 Dose: 1 tab Lamotrigine (Lamictal -) 200 mg GT BID JORGE Last Admin: 03/20/18 10:13 Dose: 200 mg Mupirocin (Bactroban Ointment (For Decolonization) -) 1 applic NS BID JORGE Stop: 03/24/18 21:59 Last Admin: 03/19/18 21:47 Dose: 1 applic Phenobarbital 30 mg/ (Phenobarbital 15 mg) 45 mg GT BID JORGE Last Admin: 03/20/18 10:08 Dose: 45 mg GENERAL: Nonverbal on NIPPV, NAD HEAD: Microocephalic, atraumatic. EYES: No pallor or icterus. EARS, NOSE, THROAT: WNL LUNGS: Coarse breath sounds. No wheeze, On NIPPV . HEART: Regular rate and rhythm, normal S1 and S2 with soft systolic murmur ABDOMEN: G tube in place. Soft, nontender to palpation, (+) BS MUSCULOSKELETAL: Contracted extremities NEUROLOGICAL: Nonverbal, unable to interact or follow commands LOWER EXTREMITY: No pedal edema. Laboratory Results - last 24 hr 03/19/18 03/19/18 03/19/18 07:15 07:36 07:36 WBC 18.8 H RBC 3.86 L Hgb 13.0 Hct 39.7 D MCV 103.0 H MCH 33.7 MCHC 32.7 RDW 17.3 H Plt Count 124 L D MPV 11.3 H D Absolute Neuts (auto) 17.4 H Neutrophils % 92.5 H D Neutrophils % (Manual) 89.3 H D Band Neutrophils % 1.0 Lymphocytes % 4.7 L D Lymphocytes % (Manual) 8.7 D Monocytes % 2.6 L Monocytes % (Manual) 0 L D Eosinophils % 0.0 D Eosinophils % (Manual) 0.0 Basophils % 0.2 Basophils % (Manual) 0.0 Myelocytes % (Man) 0 Promyelocytes % (Man) 0 Blast Cells % (Manual) 0 Nucleated RBC % 0 Metamyelocytes 1 Hypochromia 0 Platelet Estimate Decreased Polychromasia 0 Poikilocytosis 0 Anisocytosis 1+ Microcytosis 0 Macrocytosis 1+ PT with INR 12.60 INR 1.07 PTT (Actin FS) 41.8 H VBG pH POC VBG pCO2 POC VBG pO2 Mixed VBG HCO3 Sodium Potassium Chloride Carbon Dioxide Anion Gap BUN Creatinine Creat Clearance w eGFR Random Glucose Lactic Acid Calcium Total Bilirubin AST ALT Alkaline Phosphatase Troponin I Total Protein Albumin TSH Free T4 Urine Color Yellow Urine Appearance Slcloudy Urine pH 9.0 H Ur Specific [place] 1.015 Urine Protein Negative Urine Glucose (UA) Negative Urine Ketones Negative Urine Blood Negative Urine Nitrite Negative Urine Bilirubin Negative Urine Urobilinogen Negative Ur Leukocyte Esterase Negative 03/19/18 03/19/18 03/19/18 07:36 07:36 07:36 WBC RBC Hgb Hct MCV MCH MCHC RDW Plt Count MPV Absolute Neuts (auto) Neutrophils % Neutrophils % (Manual) Band Neutrophils % Lymphocytes % Lymphocytes % (Manual) Monocytes % Monocytes % (Manual) Eosinophils % Eosinophils % (Manual) Basophils % Basophils % (Manual) Myelocytes % (Man) Promyelocytes % (Man) Blast Cells % (Manual) Nucleated RBC % Metamyelocytes Hypochromia Platelet Estimate Polychromasia Poikilocytosis Anisocytosis Microcytosis Macrocytosis PT with INR INR PTT (Actin FS) VBG pH 7.39 POC VBG pCO2 48.3 POC VBG pO2 70.5 H D Mixed VBG HCO3 28.9 H Sodium 136 Potassium 4.1 Chloride 100 Carbon Dioxide 29 Anion Gap 7 L BUN 21 H Creatinine 0.7 Creat Clearance w eGFR > 60 Random Glucose 51 L Lactic Acid 1.0 Calcium 9.1 Total Bilirubin 0.1 L AST 62 H ALT 80 H Alkaline Phosphatase 324 H Troponin I Total Protein 8.6 H Albumin 3.5 TSH Free T4 Urine Color Urine Appearance Urine pH Ur Specific [place] Urine Protein Urine Glucose (UA) Urine Ketones Urine Blood Urine Nitrite Urine Bilirubin Urine Urobilinogen Ur Leukocyte Esterase 03/19/18 07:36 WBC RBC Hgb Hct MCV MCH MCHC RDW Plt Count MPV Absolute Neuts (auto) Neutrophils % Neutrophils % (Manual) Band Neutrophils % Lymphocytes % Lymphocytes % (Manual) Monocytes % Monocytes % (Manual) Eosinophils % Eosinophils % (Manual) Basophils % Basophils % (Manual) Myelocytes % (Man) Promyelocytes % (Man) Blast Cells % (Manual) Nucleated RBC % Metamyelocytes Hypochromia Platelet Estimate Polychromasia Poikilocytosis Anisocytosis Microcytosis Macrocytosis PT with INR INR PTT (Actin FS) VBG pH POC VBG pCO2 POC VBG pO2 Mixed VBG HCO3 Sodium Potassium Chloride Carbon Dioxide Anion Gap BUN Creatinine Creat Clearance w eGFR Random Glucose Lactic Acid Calcium Total Bilirubin AST ALT Alkaline Phosphatase Troponin I < 0.02 Total Protein Albumin TSH 4.83 H Free T4 0.87 Urine Color Urine Appearance Urine pH Ur Specific [place] Urine Protein Urine Glucose (UA) Urine Ketones Urine Blood Urine Nitrite Urine Bilirubin Urine Urobilinogen Ur Leukocyte Esterase ASSESSMENT/PLAN: Acute on Chronic Respiratory Failure R/O PNA Severe MR Cerebral palsy Herpetic meningoencephalitis (?) Asthma Increased LFTs Maintain NIPPV support, decrease FiO@ ABX coverage per ID Aspiration precautions Daily Medrol VTE prophylaxis Follow cultures D/C IVF BD TX Continue home meds 4W/4S monitoring Dr Price
[2018-03-20] MEDS: MUPIROCIN 2% TOPICAL OINTMENT FOR DECOLONIZATION NS SCH ×2 (10:21→22:27)
--- NOTE | 2018-03-20 12:35 | PN ---
Physical Exam: SUBJECTIVE: Patient seen and examined at bed side this morning. On Bipap overnight and this morning settings @ 12/6/40 % saturating 89 %. so incrased to 60 % and saturation now is 92 %. No acute overnight events. OBJECTIVE: Vital Signs Period Temp Pulse Resp BP Sys/[place]ina[place] Pulse Ox Last 24 Hr 96.2 F-98.6 F 70-105 21-49 91-113/46-68 94-99 GENERAL: Nonverbal at baseline, on Bipap with a RR in 50's. HEAD: Microocephalic, atraumatic. EYES: No pallor or icterus. EARS, NOSE, THROAT: Normal. LUNGS: Coarse breath sounds b/l. No wheeze, using accessory muscles. HEART: Regular rate and rhythm, normal S1 and S2 with soft systolic murmur ABDOMEN: G tube in place. Soft, nontender to palpation, normoactive bowel sounds MUSCULOSKELETAL: Contracted extremities NEUROLOGICAL: Nonverbal, unable to interact or follow commands LOWER EXTREMITY: No pedal edema. Laboratory Results - last 24 hr 03/19/18 03/20/18 03/20/18 07:36 05:30 06:10 WBC 11.5 H RBC 3.38 L Hgb 11.3 L Hct 34.9 L MCV 103.3 H MCH 33.5 MCHC 32.4 RDW 16.9 H Plt Count 98 L D MPV 10.8 Absolute Neuts (auto) 10.4 H Neutrophils % 90.6 H Lymphocytes % 6.2 L D Monocytes % 3.0 L Eosinophils % 0.0 Basophils % 0.2 Nucleated RBC % 0 Puncture Site Left radial ABG pH 7.36 ABG pCO2 at Pt Temp 45.0 ABG pO2 at Pt Temp 106.0 H D ABG HCO3 25.1 ABG O2 Sat (Measured) 98.2 ABG O2 Content 18.7 ABG Base Excess -0.1 [place] Test Positive O2 Delivery Device Bipap12/6 Oxygen Flow Rate 50% Vent Rate 14 Mechanical Rate Bipap 12/6 Pressure Support Vent 12/6 Sodium 136 Potassium 4.1 Chloride 100 Carbon Dioxide 29 Anion Gap 7 L BUN 21 H Creatinine 0.7 Creat Clearance w eGFR > 60 Random Glucose 51 L Calcium 9.1 Phosphorus 3.8 Magnesium 2.8 H Total Bilirubin 0.1 L AST 62 H ALT 80 H Alkaline Phosphatase 324 H Total Protein 8.6 H Albumin 3.5 03/20/18 08:40 WBC RBC Hgb Hct MCV MCH MCHC RDW Plt Count MPV Absolute Neuts (auto) Neutrophils % Lymphocytes % Monocytes % Eosinophils % Basophils % Nucleated RBC % Puncture Site ABG pH ABG pCO2 at Pt Temp ABG pO2 at Pt Temp ABG HCO3 ABG O2 Sat (Measured) ABG O2 Content ABG Base Excess [place] Test O2 Delivery Device Oxygen Flow Rate Vent Rate Mechanical Rate Pressure Support Vent Sodium 142 Potassium 4.4 Chloride 111 H Carbon Dioxide 25 Anion Gap 6 L BUN 13 Creatinine 0.6 Creat Clearance w eGFR > 60 Random Glucose 68 L Calcium 8.7 Phosphorus 3.1 Magnesium 2.5 H Total Bilirubin 0.3 AST 80 H ALT 80 H Alkaline Phosphatase 289 H Total Protein 7.8 Albumin 3.0 L Active Medications Generic Name Dose Route Start Last Admin Trade Name Freq PRN Reason Stop Dose Admin Albuterol/Ipratropium 1 amp 03/19/18 20:00 03/20/18 11:21 Duoneb - NEB 1 amp RQID JORGE Administration Baclofen 10 mg 03/19/18 22:00 03/20/18 10:14 Lioresal - GT 10 mg BID JORGE Administration Benzoyl Peroxide 1 applic 03/19/18 22:00 03/19/18 23:03 Benzoyl Peroxide 5% Gel - TP 1 applic BID JORGE Administration Chlorhexidine Gluconate 1 applic 03/19/18 22:00 03/19/18 21:41 Hibiclens For Decolonization - TP 1 applic HS JORGE Administration Clobazam 5 mg 03/20/18 10:00 03/20/18 10:07 Onfi - GT 5 mg DAILY JORGE Administration Clonazepam 1.5 mg 03/19/18 22:00 03/20/18 06:46 Klonopin - GT 1.5 mg TID JORGE Administration Heparin Sodium (Porcine) 5,000 unit 03/19/18 22:00 03/20/18 06:46 Heparin - SQ 5,000 unit TID JORGE Administration Piperacillin Sod/Tazobactam 50 mls @ 100 mls/hr 03/19/18 18:00 03/20/18 10:05 Sod 3.375 gm/ Dextrose IVPB 100 mls/hr Q8H-IV JORGE Administration Protocol Lactobacillus Acidophilus 1 tab 03/19/18 22:00 03/19/18 21:39 Bacid - GT 1 tab HS JORGE Administration Lamotrigine 200 mg 03/20/18 10:00 03/20/18 10:13 Lamictal - GT 200 mg BID JORGE Administration Methylprednisolone Sodium Succinate 40 mg 03/20/18 12:45 Solu-Medrol - IVPUSH Q8H-IV JORGE Mupirocin 1 applic 03/19/18 22:00 03/20/18 10:21 Bactroban Ointment (For Decolonization) - NS 03/24/18 21:59 1 applic BID JORGE Administration Phenobarbital 30 mg/ 45 mg 03/19/18 22:00 03/20/18 10:08 Phenobarbital 15 mg GT 45 mg BID JORGE Administration Patient is a 22 year old Male with significant past medical history w/ pmhx of severe MR, cerebral palsy, herpetic meningoencephalitis, and asthma who was sent from [place] for Fever and Hypoxia. Respiratory Acute hypoxic respiratory failure likely secondary to sepsis from Pneumonia Leukocytosis improved from 18 to 11, Blood cultures/Urine cultures are negative, Influenza/ RSV negative Currently on Bipap IPAP/EPAP @ 04/15/40 % saturating 89 %. so increased to 60 % and saturation now is 92 %. RR is 30-35 improved from yesterday Started on IV Methylpred 40mg Q8H JORGE Continue IV Zosyn 3.375 gm Q8H, as per ID (Dr. Douglas) Aspiration precautions Repeat CXR in AM Neurology H/O seizure: no seizure activity noted this admission Continue home medss: Klonopin, lamictal and Phenobarbital Heme Thrombocytopenia Platelet count: 124--> 98 Had thrombocytopenia last admission, USG abdomen: mildly enlarged spleen Repeat Platelet count in AM Endo Finger stick glucose-low 80's, currently NPO so will start IV D5W @ 75 mls/hr Cardio/GI no active issues FEN IV D5W @ 50 mls.hr until feeding is restarted. Patient became hypoglycemic hence starting on D5W. Electrolytes WNL NPO except meds through G tube Prophylaxis For DVT: On Heparin 5000 IU sq TID For GI: Not indicated Code Status: Full Code Dispo: Stable to be transferred to Tele. Case seen and discussed with Dr. Price. Thank you for this consultative opportunity. Visit type - Emergency Visit Emergency Visit: Yes ED Registration Date: 03/19/18 Care time: The patient presented to the Emergency Department on the above date and was hospitalized for further evaluation of their emergent condition. - New Patient This patient is new to me today: No - Critical Care Critical Care patient: Yes Total Critical Care Time (in minutes): 35 Critical Care Statement: The care of this patient involved high complexity decision making to prevent further life threatening deterioration of the patient 's condition and/or to evaluate & treat vital organ system(s) failure or risk of failure.
[2018-03-20] MEDS: methylPREDNISolone NA SUCC 40 MG/1 ML VIAL IVPUSH SCH ×2 (12:39→17:16)
[2018-03-20] MEDS ORDERED: DEXTROSE 5%-WATER - 1,000 ML IV SCH ×2 (12:45→12:48)
[2018-03-20] MEDS: BENZOYL PEROXIDE 5% 60 GM GEL..GRAM. TP SCH ×2 (13:00→22:45)
[2018-03-20 13:30] LABS: ARTERIAL BLD GAS O2 SATURATION 96.2 % (90-98.9); ARTERIAL BLOOD GAS BASE EXCESS -0.5 meq/l (-2-2); ARTERIAL BLOOD GAS PCO2 43.3 mmHg (35-45); ARTERIAL BLOOD GAS PO2 85.2 mmHg (80-100); ARTERIAL BLOOD GAS pH 7.37 (7.35-7.45)
[2018-03-20 13:33] LABS: ALLENS TEST POSITIVE
[2018-03-20] MEDS ORDERED: PIPERACILLIN/TAZOB 2.25 GM 2.25 GM in DEXTROSE 5%-WATER - 50 ML IVPB SCH (16:00)
--- NOTE | 2018-03-20 16:40 | PN ---
Progress Note, Physician History of Present Illness: continues still to do poorly still requiring bipap still mental status not improving looking more calmer than yesterday - Current Medication List Current Medications: Active Medications Albuterol/Ipratropium (Duoneb -) 1 amp NEB RQID [facility] Last Admin: 03/20/18 16:25 Dose: 1 amp Baclofen (Lioresal -) 10 mg GT BID [facility] Last Admin: 03/20/18 10:14 Dose: 10 mg Benzoyl Peroxide (Benzoyl Peroxide 5% Gel -) 1 applic TP BID [facility] Last Admin: 03/19/18 23:03 Dose: 1 applic Chlorhexidine Gluconate (Hibiclens For Decolonization -) 1 applic TP HS [facility] Last Admin: 03/19/18 21:41 Dose: 1 applic Clobazam (Onfi -) 5 mg GT DAILY [facility] Last Admin: 03/20/18 10:07 Dose: 5 mg Clonazepam (Klonopin -) 1.5 mg GT TID [facility] Last Admin: 03/20/18 14:00 Dose: 1.5 mg Heparin Sodium (Porcine) (Heparin -) 5,000 unit SQ TID [facility] Last Admin: 03/20/18 13:59 Dose: 5,000 unit Piperacillin Sod/Tazobactam (Sod 3.375 gm/ Dextrose) 50 mls @ 100 mls/hr IVPB Q8H-IV [facility]; Protocol Last Admin: 03/20/18 10:05 Dose: 100 mls/hr Dextrose (D5w -) 1,000 mls @ 50 mls/hr IV ASDIR [facility] Last Admin: 03/20/18 13:02 Dose: 50 mls/hr Lactobacillus Acidophilus (Bacid -) 1 tab GT HS [facility] Last Admin: 03/19/18 21:39 Dose: 1 tab Lamotrigine (Lamictal -) 200 mg GT BID [facility] Last Admin: 03/20/18 10:13 Dose: 200 mg Methylprednisolone Sodium Succinate (Solu-Medrol -) 40 mg IVPUSH Q8H-IV [facility] Last Admin: 03/20/18 12:39 Dose: 40 mg Mupirocin (Bactroban Ointment (For Decolonization) -) 1 applic NS BID [facility] Stop: 03/24/18 21:59 Last Admin: 03/20/18 10:21 Dose: 1 applic Phenobarbital 30 mg/ (Phenobarbital 15 mg) 45 mg GT BID [facility] Last Admin: 03/20/18 10:08 Dose: 45 mg - Objective Vital Signs: Vital Signs Temperature 98.6 F 03/20/18 10:00 Pulse Rate 85 03/20/18 15:00 Respiratory Rate 40 H 03/20/18 15:00 Blood Pressure 100/51 L 03/20/18 15:00 O2 Sat by Pulse Oximetry (%) 88 L 03/20/18 13:05 Constitutional: Yes: Other Cardiovascular: Yes: Regular Rate and Rhythm Respiratory: Yes: On BiPap, Poor Air Entry Gastrointestinal: Yes: Normal Bowel Sounds, Soft, Other (peg in place) Musculoskeletal: Yes: Other Extremities: Yes: Other (contracted) Neurological: Yes: Other Labs: CBC, BMP 03/20/18 05:30 03/20/18 08:40 INR, PTT INR 1.07 (0.83-1.09) 03/19/18 07:36 - ....Imaging Chest X-ray: Report Reviewed, Image Reviewed Assessment/Plan Acute on Chronic Respiratory Failure R/O PNA Severe MR Cerebral palsy Herpetic meningoencephalitis Aspiration pna Increased LFTs plan continue bipap support will start on zosyn secretion suction await for all cx temp monitoring icu monitoring follow imaging studies continue npo once stable can start feeding cc 40 min
--- NOTE | 2018-03-20 18:40 | PN ---
Progress Note (short form) - Note Progress Note: Patient is on Bipap. continue Bipap. Vital Signs Temperature 97.3 F L 03/20/18 17:00 Pulse Rate 72 03/20/18 17:00 Respiratory Rate 30 H 03/20/18 18:00 Blood Pressure 101/50 L 03/20/18 17:00 O2 Sat by Pulse Oximetry (%) 95 03/20/18 18:33 GEN: tachypnic, small stature, contracted LE HEENT: NC AT, dry membranes, on Bipap Neck: supple, no JVD Cardio: s1s2, RRR, tachypneic Pulm: tachypneic , decreased BS BL on bipap. no wheeze, positive for accessory muscle use, with labored breathing. Abd: soft, NT, nondistended Ext: contracted, pulses are positive CBCD WBC 11.5 K/mm3 (4.0-10.0) H 03/20/18 05:30 RBC 3.38 M/mm3 (4.00-5.60) L 03/20/18 05:30 Hgb 11.3 GM/dL (11.7-16.9) L 03/20/18 05:30 Hct 34.9 % (35.4-49) L 03/20/18 05:30 MCV 103.3 fl (80-96) H 03/20/18 05:30 MCHC 32.4 g/dl (32.0-35.9) 03/20/18 05:30 RDW 16.9 % (11.9-15.9) H 03/20/18 05:30 Plt Count 98 K/MM3 (134-434) L D 03/20/18 05:30 MPV 10.8 fl (7.5-11.1) 03/20/18 05:30 CMP Sodium 142 mmol/L (136-145) 03/20/18 08:40 Potassium 4.4 mmol/L (3.5-5.1) 03/20/18 08:40 Chloride 111 mmol/L (98-107) H 03/20/18 08:40 Carbon Dioxide 25 mmol/L (21-32) 03/20/18 08:40 Anion Gap 6 MMOL/L (8-16) L 03/20/18 08:40 BUN 13 mg/dL (7-18) 03/20/18 08:40 Creatinine 0.6 mg/dL (0.55-1.3) 03/20/18 08:40 Creat Clearance w eGFR > 60 (>60) 03/20/18 08:40 Random Glucose 68 mg/dL (74-106) L 03/20/18 08:40 Calcium 8.7 mg/dL (8.5-10.1) 03/20/18 08:40 Total Bilirubin 0.3 mg/dL (0.2-1) 03/20/18 08:40 AST 80 U/L (15-37) H 03/20/18 08:40 ALT 80 U/L (13-61) H 03/20/18 08:40 Alkaline Phosphatase 289 U/L (45-117) H 03/20/18 08:40 Total Protein 7.8 g/dl (6.4-8.2) 03/20/18 08:40 Albumin 3.0 g/dl (3.4-5.0) L 03/20/18 08:40 CARDIAC ENZYMES Troponin I < 0.02 ng/ml (0.00-0.05) 03/19/18 07:36 Current Medications Generic Name Dose Route Start Last Admin Trade Name Freq PRN Reason Stop Dose Admin Albuterol/Ipratropium 1 amp 03/19/18 20:00 03/20/18 16:25 Duoneb - NEB 1 amp RQID [facility] Administration Baclofen 10 mg 03/19/18 22:00 03/20/18 10:14 Lioresal - GT 10 mg BID [facility] Administration Benzoyl Peroxide 1 applic 03/19/18 22:00 03/20/18 13:00 Benzoyl Peroxide 5% Gel - TP Not Given BID [facility] Chlorhexidine Gluconate 1 applic 03/19/18 22:00 03/19/18 21:41 Hibiclens For Decolonization - TP 1 applic HS [facility] Administration Clobazam 5 mg 03/20/18 10:00 03/20/18 10:07 Onfi - GT 5 mg DAILY [facility] Administration Clonazepam 1.5 mg 03/19/18 22:00 03/20/18 14:00 Klonopin - GT 1.5 mg TID [facility] Administration Heparin Sodium (Porcine) 5,000 unit 03/19/18 22:00 03/20/18 13:59 Heparin - SQ 5,000 unit TID [facility] Administration Piperacillin Sod/Tazobactam 50 mls @ 100 mls/hr 03/19/18 18:00 03/20/18 17:49 Sod 3.375 gm/ Dextrose IVPB 100 mls/hr Q8H-IV [facility] Administration Protocol Dextrose 1,000 mls @ 50 mls/hr 03/20/18 12:48 03/20/18 13:02 D5w - IV 50 mls/hr ASDIR [facility] Administration Lactobacillus Acidophilus 1 tab 03/19/18 22:00 03/19/18 21:39 Bacid - GT 1 tab HS [facility] Administration Lamotrigine 200 mg 03/20/18 10:00 03/20/18 10:13 Lamictal - GT 200 mg BID [facility] Administration Methylprednisolone Sodium Succinate 40 mg 03/20/18 12:45 03/20/18 17:16 Solu-Medrol - IVPUSH 40 mg Q8H-IV [facility] Administration Mupirocin 1 applic 03/19/18 22:00 03/20/18 10:21 Bactroban Ointment (For Decolonization) - NS 03/24/18 21:59 1 applic BID [facility] Administration Phenobarbital 30 mg/ 45 mg 03/19/18 22:00 03/20/18 10:08 Phenobarbital 15 mg GT 45 mg BID [facility] Administration Home Medications Medication Instructions Recorded Acyclovir 400 mg GT BID 04/25/17 Baclofen 10 mg GT BID 04/25/17 Benzoyl Peroxide 5% Gel - 1 applic TP BID 04/25/17 Budesonide/Formeterol Fumarate 1 inh PO BID 04/25/17 [SYMBICORT 160/4.5mcg -] Clobazam [Onfi -] 5 mg GT DAILY 04/25/17 Clonazepam 1.5 mg GT TID 04/25/17 Fluticasone Propionate [Flovent 50 mcg IH DAILY 04/25/17 Diskus] Fructooligosaccharides/Polydex 15 gm GT DAILY 04/25/17 [Fiber-Stat 15 gm/30 ml Liquid] Ipratropium/Albuterol Sulfate 3 ml IH Q6H 04/25/17 [Iprat-Albut 0.5-3(2.5) mg/3 ml] Lactobacillus Acidophilus 1 each GT HS 04/25/17 [Acidophilus] Lamotrigine 200 mg GT BID 04/25/17 Magnesium Hydrox 2400MG/30Ml [Milk 20 ml GT BID 04/25/17 of Magnesia -] Multivitamin [Poly-Vitamin] 1 each GT DAILY 04/25/17 Phenobarbital 48.6 mg GT BID 04/25/17 Ranitidine [Zantac -] 75 mg GT BID 04/25/17 Laboratory Tests 03/19/18 03/19/18 03/20/18 07:36 07:36 08:40 AST 62 H 80 H ALT 80 H 80 H Alkaline Phosphatase 324 H 289 H TSH 4.83 H Free T4 0.87 CXR: [id number] EXAM#: TYPE/EXAM: RESULT: [id number] RAD/CHEST X-RAY PORTABLE* AP CHEST : Sepsis Imaging reveals markedly distended bowel loops with large heart and a mixture of congestive and infiltrative changes. The patient is rotated to the left. There is little change since 02/20/2018. Reported By: Clifford Murrieta MD 03/19/18 0831 ASSESSMENT AND PLAN: Patient is a 22yo M with PMHx of MR, CP, herpetic mengioencephalitis and asthma from [facility] presented to the ER with sepsis, hypothermic, and was found to be not to himself as per aid at the [facility]. # acute over chronic hypoxic respiratory failure due to aspiratin PNA on chronic bipap at the [facility]. continue current care as per ICU team. # Aspiration Pneumonia on zosyn continue as per ID as well to continue with Zosyn , RSV and Influenza negative. #Distended Bowel Loops; Hold the G-feeding for now. GI consult if needed # Sepsis due to possible to aspiration Pneumonia, Hypothermic will apply josh hugger if needed # Hypothermia TSH FT4 level as above # Acute toxic metabolic encephalopathy on Bipap continue # Hx of Fecal retention with pseudo-obstruction # Transaminitis- possible to sepsis, will continue to monitor # Hx of MR # Hx of asthma- cont. inhalers DVT ppx- Heparin in ICU Visit type - Emergency Visit Emergency Visit: Yes ED Registration Date: 03/19/18 Care time: The patient presented to the Emergency Department on the above date and was hospitalized for further evaluation of their emergent condition. - New Patient This patient is new to me today: No - Critical Care Critical Care patient: Yes Total Critical Care Time (in minutes): 31 Critical Care Statement: The care of this patient involved high complexity decision making to prevent further life threatening deterioration of the patient 's condition and/or to evaluate & treat vital organ system(s) failure or risk of failure. - Discharge Referral Referred to [facility] Med P.C.: No
[2018-03-20] MEDS: LACTOBACILLUS ACIDOPHILUS 1 TABLET GT SCH (22:25)
[2018-03-20] MEDS: CHLORHEXIDINE GLUCONATE 4% CLEANSER FOR DECOLONIZATION TP SCH (22:27)
[2018-03-21] MEDS: methylPREDNISolone NA SUCC 40 MG/1 ML VIAL IVPUSH SCH ×2 (01:11→10:03)
[2018-03-21] MEDS ORDERED: PIPERACILLIN/TAZOBACTAM 3.375 GM VIAL IVPB ONE ×3 (01:57→16:52)
[2018-03-21] MEDS ORDERED: DEXTROSE 5%-WATER - 50 ML IVPB ONE ×3 (01:58→16:52)
[2018-03-21] MEDS: PIPERACILLIN/TAZOB 3.375 GM 3.375 GM in DEXTROSE 5%-WATER - 50 ML IVPB SCH ×3 (02:28→17:08)
[2018-03-21] MEDS: HEPARIN NA (PORCINE) 5,000 UNITS/ML 1ML VIAL SQ SCH ×3 (06:24→21:42)
[2018-03-21] MEDS: clonazePAM 0.5 MG TABLET GT SCH ×3 (06:24→21:41)
[2018-03-21] MEDS: ALBUTEROL SO4 2.5/IPRATROPIUM 0.5 INH SOL 3 ML VIAL.NEB. NEB SCH ×4 (08:30→20:22)
[2018-03-21] MEDS ORDERED: PHENobarbital 30 MG TABLET ONE (09:58)
[2018-03-21] MEDS ORDERED: PHENobarbital 15 MG TABLET ONE (09:58)
[2018-03-21] MEDS ORDERED: PT OWN MED DRAWER 7, Y5N ONE ×3 (10:00→21:51)
[2018-03-21] MEDS: cloBAZam 10 MG TABLET GT SCH (10:02)
[2018-03-21] MEDS: PHENOBARBITAL GT SCH (10:03)
[2018-03-21] MEDS: BACLOFEN 10 MG TABLET (FP) GT SCH ×2 (10:04→21:42)
[2018-03-21] MEDS: lamoTRIgine 100 MG TABLET (FP) GT SCH ×2 (10:04→21:52)
[2018-03-21] MEDS: MUPIROCIN 2% TOPICAL OINTMENT FOR DECOLONIZATION NS SCH (10:20)
--- NOTE | 2018-03-21 10:24 | PN ---
Teaching Attending Note Name of Resident: Leandro Pratt ATTENDING PHYSICIAN STATEMENT I saw and evaluated the patient. I reviewed the resident's note and discussed the case with the resident. I agree with the resident's findings and plan as documented. SUBJECTIVE: Patient seen and examined in the ICU. Awake on NIPPV (04/15/14RR/50% FiO2). No pressors. No gross change in overall condition from yesterday. Intake & Output 03/18/18 03/19/18 03/20/18 03/21/18 23:59 23:59 23:59 23:59 Intake Total 200 1940 Balance 200 1940 Weight 91 lb 11.2 oz 91 lb 1.6 oz Last Vital Signs Temp Pulse Resp BP Pulse Ox 97.1 F L 93 H 35 H 106/46 L 95 03/21/18 06:00 03/21/18 08:00 03/21/18 08:00 03/21/18 08:00 03/21/18 09:44 Active Medications Albuterol/Ipratropium (Duoneb -) 1 amp NEB RQID [facility] Last Admin: 03/21/18 08:30 Dose: 1 amp Baclofen (Lioresal -) 10 mg GT BID [facility] Last Admin: 03/21/18 10:04 Dose: 10 mg Chlorhexidine Gluconate (Hibiclens For Decolonization -) 1 applic TP HS [facility] Last Admin: 03/20/18 22:27 Dose: 1 applic Clobazam (Onfi -) 5 mg GT DAILY [facility] Last Admin: 03/21/18 10:02 Dose: 5 mg Clonazepam (Klonopin -) 1.5 mg GT TID [facility] Last Admin: 03/21/18 06:24 Dose: 1.5 mg Heparin Sodium (Porcine) (Heparin -) 5,000 unit SQ TID [facility] Last Admin: 03/21/18 06:24 Dose: 5,000 unit Piperacillin Sod/Tazobactam (Sod 3.375 gm/ Dextrose) 50 mls @ 100 mls/hr IVPB Q8H-IV [facility]; Protocol Last Admin: 03/21/18 10:01 Dose: 100 mls/hr Dextrose (D5w -) 1,000 mls @ 50 mls/hr IV ASDIR [facility] Last Admin: 03/20/18 13:02 Dose: 50 mls/hr Lactobacillus Acidophilus (Bacid -) 1 tab GT HS [facility] Last Admin: 03/20/18 22:25 Dose: 1 tab Lamotrigine (Lamictal -) 200 mg GT BID [facility] Last Admin: 03/21/18 10:04 Dose: 200 mg Methylprednisolone Sodium Succinate (Solu-Medrol -) 40 mg IVPUSH Q8H-IV [facility] Last Admin: 03/21/18 10:03 Dose: 40 mg Mupirocin (Bactroban Ointment (For Decolonization) -) 1 applic NS BID [facility] Stop: 03/24/18 21:59 Last Admin: 03/20/18 22:27 Dose: 1 applic Phenobarbital 30 mg/ (Phenobarbital 15 mg) 45 mg GT BID [facility] Last Admin: 03/21/18 10:03 Dose: 45 mg GENERAL: Nonverbal on NIPPV, NAD HEAD: Microocephalic, atraumatic. EYES: No pallor or icterus. EARS, NOSE, THROAT: WNL LUNGS: Coarse breath sounds. No wheeze, On NIPPV . HEART: Regular rate and rhythm, normal S1 and S2 with soft systolic murmur ABDOMEN: G tube in place. Soft, nontender to palpation, (+) BS MUSCULOSKELETAL: Contracted extremities NEUROLOGICAL: Nonverbal, unable to interact or follow commands LOWER EXTREMITY: No pedal edema. Laboratory Results - last 24 hr 03/20/18 03/20/18 11:18 13:20 Puncture Site Right radial ABG pH 7.37 ABG pCO2 at Pt Temp 43.3 ABG pO2 at Pt Temp 85.2 D ABG HCO3 24.3 ABG O2 Sat (Measured) 96.2 ABG O2 Content 14.4 L ABG Base Excess -0.5 Kaushal Test Positive O2 Delivery Device 60% Oxygen Flow Rate Yes Pressure Support Vent 14 POC Glucometer 89.64504 ASSESSMENT/PLAN: Acute on Chronic Respiratory Failure R/O PNA Severe MR Cerebral palsy Herpetic meningoencephalitis (?) Asthma Increased LFTs Maintain NIPPV support, Wean FiO2 as tolerated ABX coverage per ID Aspiration precautions Daily Medrol VTE prophylaxis Follow cultures Monitor off IVF BD TX Continue home meds 4W/4S monitoring Dr Price
--- NOTE | 2018-03-21 12:37 | PN ---
Teaching Attending Note Name of Resident: Tonny Dwyer ATTENDING PHYSICIAN STATEMENT I saw and evaluated the patient. I reviewed the resident's note and discussed the case with the resident. I agree with the resident's findings and plan as documented. SUBJECTIVE: No new changes continues to be in ICU, Nonverbal. OBJECTIVE: Vital Signs Temperature 97.3 F L 03/21/18 10:00 Pulse Rate 97 H 03/21/18 10:00 Respiratory Rate 25 H 03/21/18 10:00 Blood Pressure 115/64 03/21/18 10:00 O2 Sat by Pulse Oximetry (%) 95 03/21/18 09:44 GEN: tachypnic, small stature, contracted LE HEENT: NC AT, dry membranes, on Bipap Neck: supple, no JVD Cardio: s1s2, RRR, tachypneic Pulm: tachypneic , decreased BS BL on bipap. Abd: soft, NT, nondistended Ext: contracted, pulses are positive CBCD WBC 11.5 K/mm3 (4.0-10.0) H 03/20/18 05:30 RBC 3.38 M/mm3 (4.00-5.60) L 03/20/18 05:30 Hgb 11.3 GM/dL (11.7-16.9) L 03/20/18 05:30 Hct 34.9 % (35.4-49) L 03/20/18 05:30 MCV 103.3 fl (80-96) H 03/20/18 05:30 MCHC 32.4 g/dl (32.0-35.9) 03/20/18 05:30 RDW 16.9 % (11.9-15.9) H 03/20/18 05:30 Plt Count 98 K/MM3 (134-434) L D 03/20/18 05:30 MPV 10.8 fl (7.5-11.1) 03/20/18 05:30 CMP Sodium 142 mmol/L (136-145) 03/20/18 08:40 Potassium 4.4 mmol/L (3.5-5.1) 03/20/18 08:40 Chloride 111 mmol/L (98-107) H 03/20/18 08:40 Carbon Dioxide 25 mmol/L (21-32) 03/20/18 08:40 Anion Gap 6 MMOL/L (8-16) L 03/20/18 08:40 BUN 13 mg/dL (7-18) 03/20/18 08:40 Creatinine 0.6 mg/dL (0.55-1.3) 03/20/18 08:40 Creat Clearance w eGFR > 60 (>60) 03/20/18 08:40 Random Glucose 68 mg/dL (74-106) L 03/20/18 08:40 Calcium 8.7 mg/dL (8.5-10.1) 03/20/18 08:40 Total Bilirubin 0.3 mg/dL (0.2-1) 03/20/18 08:40 AST 80 U/L (15-37) H 03/20/18 08:40 ALT 80 U/L (13-61) H 03/20/18 08:40 Alkaline Phosphatase 289 U/L (45-117) H 03/20/18 08:40 Total Protein 7.8 g/dl (6.4-8.2) 03/20/18 08:40 Albumin 3.0 g/dl (3.4-5.0) L 03/20/18 08:40 CARDIAC ENZYMES Troponin I < 0.02 ng/ml (0.00-0.05) 03/19/18 07:36 Current Medications Generic Name Dose Route Start Last Admin Trade Name Debbie PRN Reason Stop Dose Admin Albuterol/Ipratropium 1 amp 03/19/18 20:00 03/21/18 08:30 Duoneb - NEB 1 amp RQID [facility] Administration Baclofen 10 mg 03/19/18 22:00 03/21/18 10:04 Lioresal - GT 10 mg BID [facility] Administration Chlorhexidine Gluconate 1 applic 03/19/18 22:00 03/20/18 22:27 Hibiclens For Decolonization - TP 1 applic HS [facility] Administration Clobazam 5 mg 03/20/18 10:00 03/21/18 10:02 Onfi - GT 5 mg DAILY [facility] Administration Clonazepam 1.5 mg 03/19/18 22:00 03/21/18 06:24 Klonopin - GT 1.5 mg TID [facility] Administration Heparin Sodium (Porcine) 5,000 unit 03/19/18 22:00 03/21/18 06:24 Heparin - SQ 5,000 unit TID [facility] Administration Piperacillin Sod/Tazobactam 50 mls @ 100 mls/hr 03/19/18 18:00 03/21/18 10:01 Sod 3.375 gm/ Dextrose IVPB 100 mls/hr Q8H-IV [facility] Administration Protocol Lactobacillus Acidophilus 1 tab 03/19/18 22:00 03/20/18 22:25 Bacid - GT 1 tab HS [facility] Administration Lamotrigine 200 mg 03/20/18 10:00 03/21/18 10:04 Lamictal - GT 200 mg BID [facility] Administration Methylprednisolone Sodium Succinate 40 mg 03/22/18 10:00 Solu-Medrol - IVPUSH DAILY [facility] Mupirocin 1 applic 03/19/18 22:00 03/21/18 10:20 Bactroban Ointment (For Decolonization) - NS 03/24/18 21:59 1 applic BID [facility] Administration Phenobarbital 30 mg/ 45 mg 03/19/18 22:00 03/21/18 10:03 Phenobarbital 15 mg GT 45 mg BID [facility] Administration Home Medications Medication Instructions Recorded Acyclovir 400 mg GT BID 04/25/17 Baclofen 10 mg GT BID 04/25/17 Benzoyl Peroxide 5% Gel - 1 applic TP BID 04/25/17 Budesonide/Formeterol Fumarate 1 inh PO BID 04/25/17 [SYMBICORT 160/4.5mcg -] Clobazam [Onfi -] 5 mg GT DAILY 04/25/17 Clonazepam 1.5 mg GT TID 04/25/17 Fluticasone Propionate [Flovent 50 mcg IH DAILY 04/25/17 Diskus] Fructooligosaccharides/Polydex 15 gm GT DAILY 04/25/17 [Fiber-Stat 15 gm/30 ml Liquid] Ipratropium/Albuterol Sulfate 3 ml IH Q6H 04/25/17 [Iprat-Albut 0.5-3(2.5) mg/3 ml] Lactobacillus Acidophilus 1 each GT HS 04/25/17 [Acidophilus] Lamotrigine 200 mg GT BID 04/25/17 Magnesium Hydrox 2400MG/30Ml [Milk 20 ml GT BID 04/25/17 of Magnesia -] Multivitamin [Poly-Vitamin] 1 each GT DAILY 04/25/17 Phenobarbital 48.6 mg GT BID 04/25/17 Ranitidine [Zantac -] 75 mg GT BID 04/25/17 CXR: [id number] EXAM#: TYPE/EXAM: RESULT: [id number] RAD/CHEST X-RAY PORTABLE* AP CHEST : Sepsis Imaging reveals markedly distended bowel loops with large heart and a mixture of congestive and infiltrative changes. The patient is rotated to the left. There is little change since 02/20/2018. Reported By: Clifford Murrieta MD 03/19/18 0814 ASSESSMENT AND PLAN: Patient is a 22yo M with PMHx of MR, CP, herpetic mengioencephalitis and asthma from [facility] presented to the ER with sepsis, hypothermic, and was found to be not to himself as per aid at the [facility]. # acute over chronic hypoxic respiratory failure due to aspiratin PNA on acute over chronic bipap from [facility]. continue current care as per ICU team. # Aspiration Pneumonia on zosyn continue as per ID. RSV and Influenza negative. #Distended Bowel Loops; started back to G-tube feeding # Sepsis due to possible to aspiration Pneumonia, Hypothermic will apply josh hugger if needed # Hypothermia TSH FT4 level # Hx of Fecal retention with pseudo-obstruction # Transaminitis- possible to sepsis, will continue to monitor # Hx of MR # Hx of asthma- cont. inhalers DVT ppx- Heparin in ICU
--- NOTE | 2018-03-21 13:47 | PN ---
Physical Exam: SUBJECTIVE: Patient seen and examined at bedside. Pt nonverbal. No acute events overnight. OBJECTIVE: Vital Signs Period Temp Pulse Resp BP Sys/Linares Pulse Ox Last 24 Hr 97 F-97.6 F 67-97 23-40 95-115/46-64 93-97 Limited exam. Unchanged GEN: tachypnic, small stature, contracted LE HEENT: NCAT, dry membranes (? due to bipap) Neck: supple Cardio: s1s2, rrr, no mrg appreciated Pulm: coarse breath sounds diffusely on bipap. Tachypnic. No clear rales/ronchi appreciated Abd: nondistended, soft, nontender Ext: contracted, underdeveloped Active Medications Generic Name Dose Route Start Last Admin Trade Name Freq PRN Reason Stop Dose Admin Albuterol/Ipratropium 1 amp 03/19/18 20:00 03/21/18 08:30 Duoneb - NEB 1 amp RQID [facility] Administration Baclofen 10 mg 03/19/18 22:00 03/21/18 10:04 Lioresal - GT 10 mg BID [facility] Administration Chlorhexidine Gluconate 1 applic 03/19/18 22:00 03/20/18 22:27 Hibiclens For Decolonization - TP 1 applic HS [facility] Administration Clobazam 5 mg 03/20/18 10:00 03/21/18 10:02 Onfi - GT 5 mg DAILY [facility] Administration Clonazepam 1.5 mg 03/19/18 22:00 03/21/18 06:24 Klonopin - GT 1.5 mg TID [facility] Administration Heparin Sodium (Porcine) 5,000 unit 03/19/18 22:00 03/21/18 06:24 Heparin - SQ 5,000 unit TID [facility] Administration Piperacillin Sod/Tazobactam 50 mls @ 100 mls/hr 03/19/18 18:00 03/21/18 10:01 Sod 3.375 gm/ Dextrose IVPB 100 mls/hr Q8H-IV [facility] Administration Protocol Lactobacillus Acidophilus 1 tab 03/19/18 22:00 03/20/18 22:25 Bacid - GT 1 tab HS [facility] Administration Lamotrigine 200 mg 03/20/18 10:00 03/21/18 10:04 Lamictal - GT 200 mg BID [facility] Administration Methylprednisolone Sodium Succinate 40 mg 03/22/18 10:00 Solu-Medrol - IVPUSH DAILY [facility] Mupirocin 1 applic 03/19/18 22:00 03/21/18 10:20 Bactroban Ointment (For Decolonization) - NS 03/24/18 21:59 1 applic BID [facility] Administration Phenobarbital 30 mg/ 45 mg 03/19/18 22:00 03/21/18 10:03 Phenobarbital 15 mg GT 45 mg BID [facility] Administration ASSESSMENT/PLAN: Pt is a 22 y/o M with PMH herpes encephalitis, severe MR, seizures, asthma, report of intubation in the past, chronically on NIPPV who was sent from [place] for hypoxia/hypothermia. Pt admitted for sepsis and resp distress. #Acute on chronic resp failure -pt chronically uses NIPPV at [facility] -NIPPV 04/15/14RR/50% FiO2 -c/w duonebs -Pulm consulted #? PNA -WBC 18, tachypnea, hypothermia (chronically hypothermic) -? aspiration considering unremarkable UA, chronic use of NIPPV, and recent hypoxia -CXR read as having congestive & infiltritive changes -Vanc/Zosyn, NS, Solumedrol, Duonebs given in ED -ID -BCx, UCx neg -c/w Zosyn #Seizure disorder -c/w home meds -klonopin, lamictal, Phenobarbital #FEN -NS -lytes wnl -NPO except meds. No g-tube feeds #PPx -Hep SubQ #Dispo -in ICU. Pending transfer to [facility] Tonny Dwyer MD PGY-2 IM Visit type - Emergency Visit Emergency Visit: No - New Patient This patient is new to me today: No - Critical Care Critical Care patient: Yes Total Critical Care Time (in minutes): 45 Critical Care Statement: The care of this patient involved high complexity decision making to prevent further life threatening deterioration of the patient 's condition and/or to evaluate & treat vital organ system(s) failure or risk of failure.
[2018-03-21 14:58] VITALS: BMI 17.2
--- NOTE | 2018-03-21 15:14 | PN ---
Physical Exam: SUBJECTIVE: Patient seen and examined Patient seen and examined at bedside. Pt nonverbal. No acute events overnight. on bipap overnight OBJECTIVE: Vital Signs Period Temp Pulse Resp BP Sys/Linares Pulse Ox Last 24 Hr 97 F-97.6 F 67-100 23-35 95-115/46-69 93-96 GEN: small stature, contracted LE Neck: supple Cardio: s1s2, rrr, no mrg appreciated Pulm: coarse breath sounds diffusely on bipap. Abd: nondistended, soft, nontender, peg tube in situ Ext: contracted, underdeveloped Active Medications Generic Name Dose Route Start Last Admin Trade Name Freq PRN Reason Stop Dose Admin Albuterol/Ipratropium 1 amp 03/19/18 20:00 03/21/18 12:00 Duoneb - NEB 1 amp RQID JORGE Administration Baclofen 10 mg 03/19/18 22:00 03/21/18 10:04 Lioresal - GT 10 mg BID JORGE Administration Chlorhexidine Gluconate 1 applic 03/19/18 22:00 03/20/18 22:27 Hibiclens For Decolonization - TP 1 applic HS JORGE Administration Clobazam 5 mg 03/20/18 10:00 03/21/18 10:02 Onfi - GT 5 mg DAILY [facility] Administration Clonazepam 1.5 mg 03/19/18 22:00 03/21/18 14:49 Klonopin - GT 1.5 mg TID JORGE Administration Heparin Sodium (Porcine) 5,000 unit 03/19/18 22:00 03/21/18 14:49 Heparin - SQ 5,000 unit TID [facility] Administration Piperacillin Sod/Tazobactam 50 mls @ 100 mls/hr 03/19/18 18:00 03/21/18 10:01 Sod 3.375 gm/ Dextrose IVPB 100 mls/hr Q8H-IV [facility] Administration Protocol Lactobacillus Acidophilus 1 tab 03/19/18 22:00 03/20/18 22:25 Bacid - GT 1 tab HS [facility] Administration Lamotrigine 200 mg 03/20/18 10:00 03/21/18 10:04 Lamictal - GT 200 mg BID [facility] Administration Methylprednisolone Sodium Succinate 40 mg 03/22/18 10:00 Solu-Medrol - IVPUSH DAILY [facility] Mupirocin 1 applic 03/19/18 22:00 11/11/18 10:20 Bactroban Ointment (For Decolonization) - NS 03/24/18 21:59 1 applic BID J[facility] Administration Phenobarbital 30 mg/ 45 mg 03/19/18 22:00 03/21/18 10:03 Phenobarbital 15 mg GT 45 mg BID JOR[facility] Administration ASSESSMENT/PLAN: Pt is a 22 y/o M with PMH herpes encephalitis, severe MR, seizures, asthma, report of intubation in the past, chronically on NIPPV who was sent from [place] for hypoxia/hypothermia. Pt admitted for sepsis and resp distress. #Acute on chronic resp failure -NIPPV 04/15/14RR/50% FiO2 -c/w duonebs - keep head end elevated - aspiration precaution - antibiotic as per ID team - BC and UC negative - monitor vitals #Seizure disorder -c/w home meds -klonopin, lamictal, Phenobarbital #FEN -stop fluid, start on tube feed -lytes wnl #PPx -Hep SubQ #Dispo -in ICU. Pending transfer to Tele Visit type - Emergency Visit Emergency Visit: Yes ED Registration Date: 03/19/18 Care time: The patient presented to the Emergency Department on the above date and was hospitalized for further evaluation of their emergent condition. - New Patient This patient is new to me today: Yes Date on this admission: 03/22/18 - Critical Care Critical Care patient: Yes Total Critical Care Time (in minutes): 45 Critical Care Statement: The care of this patient involved high complexity decision making to prevent further life threatening deterioration of the patient 's condition and/or to evaluate & treat vital organ system(s) failure or risk of failure.
--- NOTE | 2018-03-21 17:32 | PN ---
Progress Note, Physician History of Present Illness: patient doing more better more awake and alert still requiring bipap calmer - Current Medication List Current Medications: Active Medications Albuterol/Ipratropium (Duoneb -) 1 amp NEB RQID [facility] Last Admin: 03/21/18 12:00 Dose: 1 amp Baclofen (Lioresal -) 10 mg GT BID [facility] Last Admin: 03/21/18 10:04 Dose: 10 mg Chlorhexidine Gluconate (Hibiclens For Decolonization -) 1 applic TP HS [facility] Last Admin: 03/20/18 22:27 Dose: 1 applic Clobazam (Onfi -) 5 mg GT DAILY [facility] Last Admin: 03/21/18 10:02 Dose: 5 mg Clonazepam (Klonopin -) 1.5 mg GT TID [facility] Last Admin: 03/21/18 14:49 Dose: 1.5 mg Heparin Sodium (Porcine) (Heparin -) 5,000 unit SQ TID [facility] Last Admin: 03/21/18 14:49 Dose: 5,000 unit Piperacillin Sod/Tazobactam (Sod 3.375 gm/ Dextrose) 50 mls @ 100 mls/hr IVPB Q8H-IV [facility]; Protocol Last Admin: 03/21/18 17:08 Dose: 100 mls/hr Lactobacillus Acidophilus (Bacid -) 1 tab GT HS [facility] Last Admin: 03/20/18 22:25 Dose: 1 tab Lamotrigine (Lamictal -) 200 mg GT BID [facility] Last Admin: 03/21/18 10:04 Dose: 200 mg Methylprednisolone Sodium Succinate (Solu-Medrol -) 40 mg IVPUSH DAILY [facility] Mupirocin (Bactroban Ointment (For Decolonization) -) 1 applic NS BID [facility] Stop: 03/24/18 21:59 Last Admin: 03/21/18 10:20 Dose: 1 applic Phenobarbital 30 mg/ (Phenobarbital 15 mg) 45 mg GT BID [facility] Last Admin: 03/21/18 10:03 Dose: 45 mg - Objective Vital Signs: Vital Signs Temperature 97.4 F L 03/21/18 14:00 Pulse Rate 99 H 03/21/18 14:00 Respiratory Rate 25 H 03/21/18 14:00 Blood Pressure 109/59 L 03/21/18 14:00 O2 Sat by Pulse Oximetry (%) 95 03/21/18 09:44 Constitutional: Yes: No Distress, Calm Cardiovascular: Yes: Regular Rate and Rhythm Respiratory: Yes: On BiPap, Poor Air Entry Gastrointestinal: Yes: Normal Bowel Sounds, Soft Musculoskeletal: Yes: WNL Extremities: Yes: WNL Neurological: Yes: Alert, Other Psychiatric: Yes: Other Labs: CBC, BMP 03/20/18 05:30 03/20/18 08:40 INR, PTT INR 1.07 (0.83-1.09) 03/19/18 07:36 Assessment/Plan Acute on Chronic Respiratory Failure R/O PNA Severe MR Cerebral palsy Herpetic meningoencephalitis Aspiration pna Increased LFTs plan continue bipap support zosyn temp monitoring once stable can start feeding
[2018-03-21] MEDS: LACTOBACILLUS ACIDOPHILUS 1 TABLET GT SCH (21:42)
[2018-03-21] MEDS: PHENobarbital 30 MG TABLET GT SCH (21:43)
[2018-03-21] MEDS ORDERED: MUPIROCIN 2% TOPICAL OINTMENT FOR DECOLONIZATION NS SCH (22:00)
[2018-03-21] MEDS ORDERED: PHENOBARBITAL GT SCH (22:00)
[2018-03-22] MEDS ORDERED: PIPERACILLIN/TAZOBACTAM 3.375 GM VIAL IVPB ONE ×3 (00:41→16:52)
[2018-03-22] MEDS ORDERED: DEXTROSE 5%-WATER - 50 ML IVPB ONE ×3 (00:41→16:52)
[2018-03-22] MEDS: PIPERACILLIN/TAZOB 3.375 GM 3.375 GM in DEXTROSE 5%-WATER - 50 ML IVPB SCH ×3 (01:06→17:26)
[2018-03-22] MEDS ORDERED: PT OWN MED DRAWER 7, Y5N ONE ×5 (04:32→23:30)
[2018-03-22] MEDS: clonazePAM 0.5 MG TABLET GT SCH ×3 (05:44→22:07)
[2018-03-22] MEDS: HEPARIN NA (PORCINE) 5,000 UNITS/ML 1ML VIAL SQ SCH ×3 (05:44→22:08)
[2018-03-22] MEDS: ALBUTEROL SO4 2.5/IPRATROPIUM 0.5 INH SOL 3 ML VIAL.NEB. NEB SCH ×4 (08:25→20:50)
[2018-03-22 09:57] LABS: BASO % 0.1 % (0-2.0); HEMATOCRIT 31.1 % (35.4-49); HEMOGLOBIN 10.2 GM/dL (11.7-16.9); LYMPH % 37.4 % (8-40); MCH 33.6 pg (25.7-33.7); MCHC 32.8 g/dl (32.0-35.9); MEAN CELL VOLUME 102.5 fl (80-96); MEAN PLT VOLUME 10.3 fl (7.5-11.1); MONO % 4.9 % (3.8-10.2); NEUT % 57.6 % (42.8-82.8); PLATELET COUNT 99 K/MM3 (134-434); RBC 3.04 M/mm3 (4.00-5.60); RDW 16.9 % (11.9-15.9); WHITE BLOOD COUNT 8.6 K/mm3 (4.0-10.0)
[2018-03-22] MEDS: lamoTRIgine 100 MG TABLET (FP) GT SCH ×2 (10:00→22:07)
[2018-03-22] MEDS: BACLOFEN 10 MG TABLET (FP) GT SCH ×2 (10:01→23:34)
[2018-03-22] MEDS: methylPREDNISolone NA SUCC 40 MG/1 ML VIAL IVPUSH SCH (10:02)
[2018-03-22] MEDS: cloBAZam 10 MG TABLET GT SCH (10:02)
[2018-03-22] MEDS: PHENobarbital 30 MG TABLET GT SCH ×2 (10:02→22:07)
[2018-03-22 10:05] LABS: ANION GAP 7 MMOL/L (8-16); BLOOD UREA NITROGEN 15 mg/dL (7-18); CALCIUM 8.6 mg/dL (8.5-10.1); CHLORIDE 112 mmol/L (98-107); CO2 27 mmol/L (21-32); CREATININE 0.5 mg/dL (0.55-1.3); GLUCOSE,RANDOM 80 mg/dL (74-106); PHOSPHOROUS 4.4 mg/dL (2.5-4.9); POTASSIUM 3.9 mmol/L (3.5-5.1); SODIUM 146 mmol/L (136-145)
--- NOTE | 2018-03-22 11:14 | PN ---
Progress Note, Physician History of Present Illness: PULMONARY AWAKE ON BIPAP APPEARS COMFORTABLE,-RESP DISTRESS - Current Medication List Current Medications: Active Medications Albuterol/Ipratropium (Duoneb -) 1 amp NEB RQID [facility] Last Admin: 03/22/18 08:25 Dose: Not Given Baclofen (Lioresal -) 10 mg GT BID [facility] Last Admin: 03/22/18 10:01 Dose: 10 mg Clobazam (Onfi -) 5 mg GT DAILY [facility] Last Admin: 03/22/18 10:02 Dose: 5 mg Clonazepam (Klonopin -) 1.5 mg GT TID [facility] Last Admin: 03/22/18 05:44 Dose: 1.5 mg Heparin Sodium (Porcine) (Heparin -) 5,000 unit SQ TID [facility] Last Admin: 03/22/18 05:44 Dose: 5,000 unit Piperacillin Sod/Tazobactam (Sod 3.375 gm/ Dextrose) 50 mls @ 100 mls/hr IVPB Q8H-IV [facility]; Protocol Last Admin: 03/22/18 09:59 Dose: 100 mls/hr Lactobacillus Acidophilus (Bacid -) 1 tab GT HS [facility] Last Admin: 03/21/18 21:42 Dose: 1 tab Lamotrigine (Lamictal -) 200 mg GT BID [facility] Last Admin: 03/22/18 10:00 Dose: 200 mg Methylprednisolone Sodium Succinate (Solu-Medrol -) 40 mg IVPUSH DAILY [facility] Last Admin: 03/22/18 10:02 Dose: 40 mg Phenobarbital (Phenobarbital -) 45 mg GT BID [facility] Last Admin: 03/22/18 10:02 Dose: 45 mg - Objective Vital Signs: Vital Signs Temperature 96.6 F L 03/22/18 05:24 Pulse Rate 72 03/22/18 05:24 Respiratory Rate 17 03/22/18 05:24 Blood Pressure 104/63 03/22/18 05:24 O2 Sat by Pulse Oximetry (%) 95 03/21/18 21:00 Constitutional: Yes: Calm, Thin Eyes: Yes: WNL HENT: Yes: WNL Neck: Yes: WNL Cardiovascular: Yes: Regular Rate and Rhythm, S1, S2 Respiratory: Yes: Rhonchi (SCATTERED RHONCHI) Gastrointestinal: Yes: Normal Bowel Sounds, Soft Extremities: Yes: WNL Edema: No Labs: CBC, BMP 11/12/18 09:19 03/22/18 09:19 INR, PTT INR 1.07 (0.83-1.09) 03/19/18 07:36 Problem List - Problems (1) Pneumonia Code(s): J18.9 - PNEUMONIA, UNSPECIFIED ORGANISM (2) Asthma Code(s): J45.909 - UNSPECIFIED ASTHMA, UNCOMPLICATED (3) Epilepsy Code(s): G40.909 - EPILEPSY, UNSP, NOT INTRACTABLE, WITHOUT STATUS EPILEPTICUS (4) Profound mental retardation Code(s): F73 - PROFOUND INTELLECTUAL DISABILITIES (5) Seizure Code(s): R56.9 - UNSPECIFIED CONVULSIONS (6) Acute and chronic respiratory failure with hypoxia Code(s): J96.21 - ACUTE AND CHRONIC RESPIRATORY FAILURE WITH HYPOXIA (7) Hypotension Code(s): I95.9 - HYPOTENSION, UNSPECIFIED (8) Transaminitis Code(s): R74.0 - NONSPEC ELEV OF LEVELS OF TRANSAMNS & LACTIC ACID DEHYDRGNSE (9) Pneumonia Code(s): J18.9 - PNEUMONIA, UNSPECIFIED ORGANISM Qualifiers: Pneumonia type: due to unspecified organism Assessment/Plan ASSESSMENT/PLAN: Acute on Chronic Respiratory Failure R/O PNA Severe MR Cerebral palsy Herpetic meningoencephalitis (?) Asthma Increased LFTs Maintain NIPPV support, Wean FiO2 as tolerated ABX coverage per ID Aspiration precautions Daily Medrol VTE prophylaxis BD TX DR VILLALTA
--- NOTE | 2018-03-22 14:18 | PN ---
Physical Exam: SUBJECTIVE: Patient seen and examined. No acute events overnight. No fevers and no Diarrhea. OBJECTIVE: Vital Signs Period Temp Pulse Resp BP Sys/Linares Pulse Ox Last 24 Hr 96.1 F-98 F 72-95 17-20 90-112/45-67 95-96 GENERAL: The patient is asleep, arousable to tactile stimulation HEAD: Normal with no signs of gross trauma. EYES: Did not open eyes spontaneously ENT: Ears normal, nares patent, oropharynx clear without exudates, moist mucous membranes. LUNGS: Decreased breath sounds, on BiPaP machine taking inadequate tidal breaths intermittently. HEART: Bradycardic, regular rate and rhythm, S1, S2 without murmur, rub or gallop. ABDOMEN: Soft, nontender, nondistended, normoactive bowel sounds, no guarding, no rebound EXTREMITIES: 2+ dorsal pedal pulses, warm, well-perfused, no edema, decorticate posturing, no calf tenderness, rocker bottom feet. SKIN: Warm, dry, normal turgor Laboratory Results - last 24 hr 03/22/18 03/22/18 09:19 09:19 WBC 8.6 RBC 3.04 L Hgb 10.2 L Hct 31.1 L MCV 102.5 H MCH 33.6 MCHC 32.8 RDW 16.9 H Plt Count 99 L MPV 10.3 Absolute Neuts (auto) 4.9 Neutrophils % 57.6 D Lymphocytes % 37.4 D Monocytes % 4.9 Eosinophils % 0.0 Basophils % 0.1 Nucleated RBC % 0 Sodium 146 H Potassium 3.9 Chloride 112 H Carbon Dioxide 27 Anion Gap 7 L BUN 15 Creatinine 0.5 L Creat Clearance w eGFR > 60 Random Glucose 80 Calcium 8.6 Phosphorus 4.4 Magnesium 2.0 Active Medications Current Medications Albuterol/Ipratropium (Duoneb -) 1 amp NEB RQID [facility] Last Admin: 03/22/18 11:31 Dose: 1 amp Baclofen (Lioresal -) 10 mg GT BID [facility] Last Admin: 03/22/18 10:01 Dose: 10 mg Clobazam (Onfi -) 5 mg GT DAILY [facility] Last Admin: 03/22/18 10:02 Dose: 5 mg Clonazepam (Klonopin -) 1.5 mg GT TID [facility] Last Admin: 03/22/18 05:44 Dose: 1.5 mg Heparin Sodium (Porcine) (Heparin -) 5,000 unit SQ TID [facility] Last Admin: 03/22/18 05:44 Dose: 5,000 unit Piperacillin Sod/Tazobactam (Sod 3.375 gm/ Dextrose) 50 mls @ 100 mls/hr IVPB Q8H-IV [facility]; Protocol Last Admin: 03/22/18 09:59 Dose: 100 mls/hr Lactobacillus Acidophilus (Bacid -) 1 tab GT HS [facility] Last Admin: 03/21/18 21:42 Dose: 1 tab Lamotrigine (Lamictal -) 200 mg GT BID [facility] Last Admin: 03/22/18 10:00 Dose: 200 mg Methylprednisolone Sodium Succinate (Solu-Medrol -) 40 mg IVPUSH DAILY [facility] Last Admin: 03/22/18 10:02 Dose: 40 mg Phenobarbital (Phenobarbital -) 45 mg GT BID [facility] Last Admin: 03/22/18 10:02 Dose: 45 mg Home Medications Medication Instructions Recorded Acyclovir 400 mg GT BID 04/25/17 Baclofen 10 mg GT BID 04/25/17 Benzoyl Peroxide 5% Gel - 1 applic TP BID 04/25/17 Budesonide/Formeterol Fumarate 1 inh PO BID 04/25/17 [SYMBICORT 160/4.5mcg -] Clobazam [Onfi -] 5 mg GT DAILY 04/25/17 Clonazepam 1.5 mg GT TID 04/25/17 Fluticasone Propionate [Flovent 50 mcg IH DAILY 04/25/17 Diskus] Fructooligosaccharides/Polydex 15 gm GT DAILY 04/25/17 [Fiber-Stat 15 gm/30 ml Liquid] Ipratropium/Albuterol Sulfate 3 ml IH Q6H 04/25/17 [Iprat-Albut 0.5-3(2.5) mg/3 ml] Lactobacillus Acidophilus 1 each GT HS 04/25/17 [Acidophilus] Lamotrigine 200 mg GT BID 04/25/17 Magnesium Hydrox 2400MG/30Ml [Milk 20 ml GT BID 04/25/17 of Magnesia -] Multivitamin [Poly-Vitamin] 1 each GT DAILY 04/25/17 Phenobarbital 48.6 mg GT BID 04/25/17 Ranitidine [Zantac -] 75 mg GT BID 04/25/17 ASSESSMENT/PLAN: Pt is a 22 y/o M with PMH herpes encephalitis, severe MR, seizures, asthma, report of intubation in the past, chronically on NIPPV who was sent from [place] for hypoxia and hypothermia. Pt admitted for sepsis and respiratory distress. #Pulmonology -Acute on chronic resp failure Pt. chronically uses NIPPV at [place] NIPPV 04/15/14RR/50% FiO2 c/w eyadbs Pulmonology (Dr. Matute) consulted -R/o PNA hypothermia (chronically hypothermic) Likely aspiration considering unremarkable UA, chronic use of NIPPV, and recent hypoxia CXR read as having congestive & infiltrative changes c/w Zosyn ID (Dr. Douglas) consulted BCx: NTD UCx: NTD Vanc/Zosyn, NS, Solumedrol, Duonebs given in ED #Neurology -Seizure disorder c/w home meds klonopin, lamictal, Phenobarbital #F/E/N -No IVF at this time, Pt. euvolemic, encourage free water intake with G-Tube feeds. -monitor electrolytes replete as needed. -G-tube feeds once stable #PPx -Hep SubQ #Dispo -Tele Visit type - Emergency Visit Emergency Visit: Yes ED Registration Date: 03/19/18 Care time: The patient presented to the Emergency Department on the above date and was hospitalized for further evaluation of their emergent condition. - New Patient This patient is new to me today: Yes Date on this admission: 03/22/18 - Critical Care Critical Care patient: No - Discharge Referral Referred to [facility] Med P.C.: No
--- NOTE | 2018-03-22 15:40 | PN ---
Progress Note, Physician History of Present Illness: awake on bipap comfortable wbc has normalized - Current Medication List Current Medications: Active Medications Albuterol/Ipratropium (Duoneb -) 1 amp NEB RQID [facility] Last Admin: 03/22/18 11:31 Dose: 1 amp Baclofen (Lioresal -) 10 mg GT BID [facility] Last Admin: 03/22/18 10:01 Dose: 10 mg Clobazam (Onfi -) 5 mg GT DAILY [facility] Last Admin: 03/22/18 10:02 Dose: 5 mg Clonazepam (Klonopin -) 1.5 mg GT TID [facility] Last Admin: 03/22/18 14:38 Dose: 1.5 mg Heparin Sodium (Porcine) (Heparin -) 5,000 unit SQ TID [facility] Last Admin: 03/22/18 14:38 Dose: 5,000 unit Piperacillin Sod/Tazobactam (Sod 3.375 gm/ Dextrose) 50 mls @ 100 mls/hr IVPB Q8H-IV [facility]; Protocol Last Admin: 03/22/18 09:59 Dose: 100 mls/hr Lactobacillus Acidophilus (Bacid -) 1 tab GT HS [facility] Last Admin: 03/21/18 21:42 Dose: 1 tab Lamotrigine (Lamictal -) 200 mg GT BID [facility] Last Admin: 03/22/18 10:00 Dose: 200 mg Methylprednisolone Sodium Succinate (Solu-Medrol -) 40 mg IVPUSH DAILY [facility] Last Admin: 03/22/18 10:02 Dose: 40 mg Phenobarbital (Phenobarbital -) 45 mg GT BID [facility] Last Admin: 03/22/18 10:02 Dose: 45 mg - Objective Vital Signs: Vital Signs Temperature 96.1 F L 03/22/18 13:38 Pulse Rate 73 03/22/18 13:38 Respiratory Rate 20 03/22/18 13:38 Blood Pressure 104/63 03/22/18 13:38 O2 Sat by Pulse Oximetry (%) 96 03/22/18 09:00 Constitutional: Yes: Calm Cardiovascular: Yes: Regular Rate and Rhythm Respiratory: Yes: On BiPap Gastrointestinal: Yes: Normal Bowel Sounds, Soft Musculoskeletal: Yes: WNL Extremities: Yes: Other (contracted) Neurological: Yes: Alert Labs: CBC, BMP 03/22/18 09:19 03/22/18 09:19 INR, PTT INR 1.07 (0.83-1.09) 03/19/18 07:36 Assessment/Plan Acute on Chronic Respiratory Failure R/O PNA Severe MR Cerebral palsy Herpetic meningoencephalitis Aspiration pna Increased LFTs plan continue bipap support zosyn temp monitoring once stable can start feeding patient looking much better
--- NOTE | 2018-03-22 16:08 | PN ---
Teaching Attending Note Name of Resident: Juan Miguel Black ATTENDING PHYSICIAN STATEMENT I saw and evaluated the patient. I reviewed the resident's note and discussed the case with the resident. I agree with the resident's findings and plan as documented. SUBJECTIVE: No new xhanges transferred from ICU. more stable. OBJECTIVE: Vital Signs Temperature 96.1 F L 03/22/18 13:38 Pulse Rate 73 03/22/18 13:38 Respiratory Rate 20 03/22/18 13:38 Blood Pressure 104/63 03/22/18 13:38 O2 Sat by Pulse Oximetry (%) 96 03/22/18 09:00 GEN: tachypnic, small stature, contracted LE HEENT: NC AT, dry membranes, on Bipap Neck: supple, no JVD Cardio: s1s2, RRR, tachypneic Pulm: tachypneic , decreased BS BL on bipap. Abd: soft, NT, nondistended Ext: contracted, pulses are positive CBCD WBC 8.6 K/mm3 (4.0-10.0) 03/22/18 09:19 RBC 3.04 M/mm3 (4.00-5.60) L 03/22/18 09:19 Hgb 10.2 GM/dL (11.7-16.9) L 03/22/18 09:19 Hct 31.1 % (35.4-49) L 03/22/18 09:19 MCV 102.5 fl (80-96) H 03/22/18 09:19 MCHC 32.8 g/dl (32.0-35.9) 03/22/18 09:19 RDW 16.9 % (11.9-15.9) H 03/22/18 09:19 Plt Count 99 K/MM3 (134-434) L 03/22/18 09:19 MPV 10.3 fl (7.5-11.1) 03/22/18 09:19 CMP Sodium 146 mmol/L (136-145) H 03/22/18 09:19 Potassium 3.9 mmol/L (3.5-5.1) 03/22/18 09:19 Chloride 112 mmol/L (98-107) H 03/22/18 09:19 Carbon Dioxide 27 mmol/L (21-32) 03/22/18 09:19 Anion Gap 7 MMOL/L (8-16) L 03/22/18 09:19 BUN 15 mg/dL (7-18) 03/22/18 09:19 Creatinine 0.5 mg/dL (0.55-1.3) L 03/22/18 09:19 Creat Clearance w eGFR > 60 (>60) 03/22/18 09:19 Random Glucose 80 mg/dL (74-106) 03/22/18 09:19 Calcium 8.6 mg/dL (8.5-10.1) 03/22/18 09:19 Total Bilirubin 0.3 mg/dL (0.2-1) 03/20/18 08:40 AST 80 U/L (15-37) H 03/20/18 08:40 ALT 80 U/L (13-61) H 03/20/18 08:40 Alkaline Phosphatase 289 U/L (45-117) H 03/20/18 08:40 Total Protein 7.8 g/dl (6.4-8.2) 03/20/18 08:40 Albumin 3.0 g/dl (3.4-5.0) L 03/20/18 08:40 CARDIAC ENZYMES Troponin I < 0.02 ng/ml (0.00-0.05) 03/19/18 07:36 Current Medications Generic Name Dose Route Start Last Admin Trade Name Debbie PRN Reason Stop Dose Admin Albuterol/Ipratropium 1 amp 03/21/18 20:00 03/22/18 16:03 Duoneb - NEB 1 amp RQID [facility] Administration Baclofen 10 mg 03/21/18 22:00 03/22/18 10:01 Lioresal - GT 10 mg BID [facility] Administration Clobazam 5 mg 03/22/18 10:00 03/22/18 10:02 Onfi - GT 5 mg DAILY [facility] Administration Clonazepam 1.5 mg 03/21/18 22:00 03/22/18 14:38 Klonopin - GT 1.5 mg TID [facility] Administration Heparin Sodium (Porcine) 5,000 unit 03/21/18 22:00 03/22/18 14:38 Heparin - SQ 5,000 unit TID [facility] Administration Piperacillin Sod/Tazobactam 50 mls @ 100 mls/hr 03/22/18 02:00 03/22/18 09:59 Sod 3.375 gm/ Dextrose IVPB 100 mls/hr Q8H-IV [facility] Administration Protocol Lactobacillus Acidophilus 1 tab 03/21/18 22:00 03/21/18 21:42 Bacid - GT 1 tab HS [facility] Administration Lamotrigine 200 mg 03/21/18 22:00 03/22/18 10:00 Lamictal - GT 200 mg BID [facility] Administration Methylprednisolone Sodium Succinate 40 mg 03/22/18 10:00 03/22/18 10:02 Solu-Medrol - IVPUSH 40 mg DAILY [facility] Administration Phenobarbital 45 mg 03/21/18 22:00 03/22/18 10:02 Phenobarbital - GT 45 mg BID [facility] Administration Home Medications Medication Instructions Recorded Acyclovir 400 mg GT BID 04/25/17 Baclofen 10 mg GT BID 04/25/17 Benzoyl Peroxide 5% Gel - 1 applic TP BID 04/25/17 Budesonide/Formeterol Fumarate 1 inh PO BID 04/25/17 [SYMBICORT 160/4.5mcg -] Clobazam [Onfi -] 5 mg GT DAILY 04/25/17 Clonazepam 1.5 mg GT TID 04/25/17 Fluticasone Propionate [Flovent 50 mcg IH DAILY 04/25/17 Diskus] Fructooligosaccharides/Polydex 15 gm GT DAILY 04/25/17 [Fiber-Stat 15 gm/30 ml Liquid] Ipratropium/Albuterol Sulfate 3 ml IH Q6H 04/25/17 [Iprat-Albut 0.5-3(2.5) mg/3 ml] Lactobacillus Acidophilus 1 each GT HS 04/25/17 [Acidophilus] Lamotrigine 200 mg GT BID 04/25/17 Magnesium Hydrox 2400MG/30Ml [Milk 20 ml GT BID 04/25/17 of Magnesia -] Multivitamin [Poly-Vitamin] 1 each GT DAILY 04/25/17 Phenobarbital 48.6 mg GT BID 04/25/17 Ranitidine [Zantac -] 75 mg GT BID 04/25/17 CXR: [id number] EXAM#: TYPE/EXAM: RESULT: [id number] RAD/CHEST X-RAY PORTABLE* AP CHEST : Sepsis Imaging reveals markedly distended bowel loops with large heart and a mixture of congestive and infiltrative changes. The patient is rotated to the left. There is little change since 02/20/2018. Reported By: Clifford Murrieta MD 03/19/18 0831 ASSESSMENT AND PLAN: Patient is a 22yo M with PMHx of MR, CP, herpetic mengioencephalitis and asthma from [facility] presented to the ER with sepsis, hypothermic, and was found to be not to himself as per aid at the [facility]. # acute over chronic hypoxic respiratory failure due to aspiration PNA on acute over chronic bipap from [facility]. doing better, will continue current care. Transferred to the floor from ICU. doing better. # Aspiration Pneumonia on Zosyn continue. RSV and Influenza negative. #Distended Bowel Loops; started back on G-tube feeding # Sepsis due to possible to aspiration Pneumonia, Hypothermic will apply josh hugger if needed # Hypothermia resolved # Hx of Fecal retention with pseudo-obstruction # Transaminitis- possible to sepsis, will continue to monitor # Hx of MR # Hx of asthma- cont. inhalers DVT ppx- Heparin in ICU
[2018-03-22] MEDS: LACTOBACILLUS ACIDOPHILUS 1 TABLET GT SCH (22:07)
[2018-03-23] MEDS ORDERED: PIPERACILLIN/TAZOBACTAM 3.375 GM VIAL IVPB ONE ×3 (01:01→17:55)
[2018-03-23] MEDS ORDERED: DEXTROSE 5%-WATER - 50 ML IVPB ONE ×3 (01:01→17:55)
[2018-03-23] MEDS: PIPERACILLIN/TAZOB 3.375 GM 3.375 GM in DEXTROSE 5%-WATER - 50 ML IVPB SCH ×3 (01:15→18:39)
[2018-03-23] MEDS: clonazePAM 0.5 MG TABLET GT SCH ×3 (05:20→23:58)
[2018-03-23] MEDS: HEPARIN NA (PORCINE) 5,000 UNITS/ML 1ML VIAL SQ SCH ×2 (05:20→13:57)
[2018-03-23] MEDS: ALBUTEROL SO4 2.5/IPRATROPIUM 0.5 INH SOL 3 ML VIAL.NEB. NEB SCH ×4 (08:16→20:52)
[2018-03-23 09:01] LABS: BASO % 0.1 % (0-2.0); HEMATOCRIT 32.9 % (35.4-49); HEMOGLOBIN 10.6 GM/dL (11.7-16.9); LYMPH % 45.1 % (8-40); MCHC 32.1 g/dl (32.0-35.9); MEAN CELL VOLUME 102.8 fl (80-96); MEAN PLT VOLUME 10.3 fl (7.5-11.1); MONO % 4.2 % (3.8-10.2); NEUT % 50.6 % (42.8-82.8); PLATELET COUNT 94 K/MM3 (134-434); RDW 17.1 % (11.9-15.9); WHITE BLOOD COUNT 10.3 K/mm3 (4.0-10.0)
[2018-03-23 09:27] LABS: ANION GAP 6 MMOL/L (8-16); BLOOD UREA NITROGEN 16 mg/dL (7-18); CALCIUM 8.6 mg/dL (8.5-10.1); CHLORIDE 108 mmol/L (98-107); CO2 30 mmol/L (21-32); CREATININE 0.6 mg/dL (0.55-1.3); GLUCOSE,RANDOM 78 mg/dL (74-106); MAGNESIUM 1.8 mg/dL (1.8-2.4); PHOSPHOROUS 3.5 mg/dL (2.5-4.9); POTASSIUM 3.5 mmol/L (3.5-5.1); SODIUM 144 mmol/L (136-145)
[2018-03-23] MEDS: cloBAZam 10 MG TABLET GT SCH (10:48)
[2018-03-23] MEDS: PHENobarbital 30 MG TABLET GT SCH ×2 (10:49→23:56)
[2018-03-23] MEDS: lamoTRIgine 100 MG TABLET (FP) GT SCH ×2 (10:49→23:58)
[2018-03-23] MEDS: methylPREDNISolone NA SUCC 40 MG/1 ML VIAL IVPUSH SCH (10:50)
[2018-03-23] MEDS ORDERED: PT OWN MED DRAWER 7, Y5N ONE ×2 (10:53→23:55)
[2018-03-23] MEDS: BACLOFEN 10 MG TABLET (FP) GT SCH (10:54)
--- NOTE | 2018-03-23 11:49 | PN ---
Progress Note, Physician - Current Medication List Current Medications: Active Medications Albuterol/Ipratropium (Duoneb -) 1 amp NEB RQID [facility] Last Admin: 03/23/18 08:16 Dose: 1 amp Baclofen (Lioresal -) 10 mg GT BID [facility] Last Admin: 03/23/18 10:54 Dose: 10 mg Clobazam (Onfi -) 5 mg GT DAILY [facility] Last Admin: 03/23/18 10:48 Dose: 5 mg Clonazepam (Klonopin -) 1.5 mg GT TID [facility] Last Admin: 03/23/18 05:20 Dose: 1.5 mg Heparin Sodium (Porcine) (Heparin -) 5,000 unit SQ TID [facility] Last Admin: 03/23/18 05:20 Dose: 5,000 unit Piperacillin Sod/Tazobactam (Sod 3.375 gm/ Dextrose) 50 mls @ 100 mls/hr IVPB Q8H-IV [facility]; Protocol Last Admin: 03/23/18 10:50 Dose: 100 mls/hr Lactobacillus Acidophilus (Bacid -) 1 tab GT HS [facility] Last Admin: 03/22/18 22:07 Dose: 1 tab Lamotrigine (Lamictal -) 200 mg GT BID [facility] Last Admin: 03/23/18 10:49 Dose: 200 mg Methylprednisolone Sodium Succinate (Solu-Medrol -) 40 mg IVPUSH DAILY [facility] Last Admin: 03/23/18 10:50 Dose: 40 mg Phenobarbital (Phenobarbital -) 45 mg GT BID [facility] Last Admin: 03/23/18 10:49 Dose: 45 mg - Objective Vital Signs: Vital Signs Temperature 97.1 F L 03/23/18 09:17 Pulse Rate 80 03/23/18 09:17 Respiratory Rate 20 03/23/18 09:17 Blood Pressure 100/61 03/23/18 09:17 O2 Sat by Pulse Oximetry (%) 95 03/23/18 09:17 Labs: CBC, BMP 03/23/18 08:40 03/23/18 08:40 INR, PTT INR 1.07 (0.83-1.09) 03/19/18 07:36
[2018-03-23] MEDS ORDERED: POTASSIUM CHLORIDE 20 MEQ PREMIX IVPB 100 ML IVPB ONE (12:08)
--- NOTE | 2018-03-23 12:24 | PN ---
Progress Note, Physician History of Present Illness: PULMONARY NO CHANGE AROUSABLE,ON BIPAP COMFORTABLE,-RESP DISTRESS - Current Medication List Current Medications: Active Medications Albuterol/Ipratropium (Duoneb -) 1 amp NEB RQID [facility] Last Admin: 03/23/18 08:16 Dose: 1 amp Baclofen (Lioresal -) 10 mg GT BID [facility] Last Admin: 03/23/18 10:54 Dose: 10 mg Clobazam (Onfi -) 5 mg GT DAILY [facility] Last Admin: 03/23/18 10:48 Dose: 5 mg Clonazepam (Klonopin -) 1.5 mg GT TID [facility] Last Admin: 03/23/18 05:20 Dose: 1.5 mg Heparin Sodium (Porcine) (Heparin -) 5,000 unit SQ TID [facility] Last Admin: 03/23/18 05:20 Dose: 5,000 unit Piperacillin Sod/Tazobactam (Sod 3.375 gm/ Dextrose) 50 mls @ 100 mls/hr IVPB Q8H-IV [facility]; Protocol Last Admin: 03/23/18 10:50 Dose: 100 mls/hr Lactobacillus Acidophilus (Bacid -) 1 tab GT HS [facility] Last Admin: 03/22/18 22:07 Dose: 1 tab Lamotrigine (Lamictal -) 200 mg GT BID [facility] Last Admin: 03/23/18 10:49 Dose: 200 mg Methylprednisolone Sodium Succinate (Solu-Medrol -) 40 mg IVPUSH DAILY [facility] Last Admin: 03/23/18 10:50 Dose: 40 mg Phenobarbital (Phenobarbital -) 45 mg GT BID [facility] Last Admin: 03/23/18 10:49 Dose: 45 mg Potassium Chloride (Potassium Chloride 20 Meq Premix Ivpb -) 20 meq IVPB ONCE ONE Stop: 03/23/18 12:09 - Objective Vital Signs: Vital Signs Temperature 97.1 F L 03/23/18 09:17 Pulse Rate 80 03/23/18 09:17 Respiratory Rate 20 03/23/18 09:17 Blood Pressure 100/61 03/23/18 09:17 O2 Sat by Pulse Oximetry (%) 95 03/23/18 09:17 Constitutional: Yes: Calm Eyes: Yes: WNL HENT: Yes: WNL Neck: Yes: WNL Cardiovascular: Yes: Regular Rate and Rhythm, S1, S2 Respiratory: Yes: Rhonchi (FEW RHONCHI) Gastrointestinal: Yes: Normal Bowel Sounds, Soft Extremities: Yes: Other (CONTRACTED) Edema: No Labs: CBC, BMP 03/23/18 08:40 03/23/18 08:40 INR, PTT INR 1.07 (0.83-1.09) 03/19/18 07:36 Problem List - Problems (1) Pneumonia Code(s): J18.9 - PNEUMONIA, UNSPECIFIED ORGANISM (2) Asthma Code(s): J45.909 - UNSPECIFIED ASTHMA, UNCOMPLICATED (3) Epilepsy Code(s): G40.909 - EPILEPSY, UNSP, NOT INTRACTABLE, WITHOUT STATUS EPILEPTICUS (4) Profound mental retardation Code(s): F73 - PROFOUND INTELLECTUAL DISABILITIES (5) Seizure Code(s): R56.9 - UNSPECIFIED CONVULSIONS (6) Acute and chronic respiratory failure with hypoxia Code(s): J96.21 - ACUTE AND CHRONIC RESPIRATORY FAILURE WITH HYPOXIA (7) Hypotension Code(s): I95.9 - HYPOTENSION, UNSPECIFIED (8) Transaminitis Code(s): R74.0 - NONSPEC ELEV OF LEVELS OF TRANSAMNS & LACTIC ACID DEHYDRGNSE (9) Pneumonia Code(s): J18.9 - PNEUMONIA, UNSPECIFIED ORGANISM Qualifiers: Pneumonia type: due to unspecified organism Assessment/Plan ASSESSMENT/PLAN: Acute on Chronic Respiratory Failure R/O PNA Severe MR Cerebral palsy Herpetic meningoencephalitis (?) Asthma Increased LFTs Maintain NIPPV support, Wean FiO2 as tolerated ABX coverage per ID Aspiration precautions Medrol VTE prophylaxis BD TX CHEST X-RAY DR VILLALTA
[2018-03-23] MEDS: KCL 10 MEQ IVPB 10 MEQ/100 ML INFUS.BAG IVPB SCH ×2 (13:53→16:17)
--- NOTE | 2018-03-23 14:52 | PN ---
Physical Exam: SUBJECTIVE: Patient seen and examined. No acute events overnight. No fevers. No diarrhea. OBJECTIVE: Vital Signs Period Temp Pulse Resp BP Sys/Linares Pulse Ox Last 24 Hr 97.1 F-98.6 F 59-80 20-20 97-116/41-69 95-98 GENERAL: The patient is [place], awake with eyes open. HEAD: Normal with no signs of gross trauma. ENT: Ears normal, nares patent, oropharynx clear without exudates, moist mucous membranes. LUNGS: Decreased coarse breath sounds, on BiPaP machine HEART: Regular rate and rhythm, S1, S2 without murmur ABDOMEN: Soft, nontender, nondistended, normoactive bowel sounds, no guarding, no rebound EXTREMITIES: 2+ dorsal pedal pulses, warm, well-perfused, no edema, decorticate posturing, no calf tenderness, rocker bottom feet. SKIN: Warm, dry, normal turgor Laboratory Results - last 24 hr 03/23/18 03/23/18 08:40 08:40 WBC 10.3 H RBC 3.20 L Hgb 10.6 L Hct 32.9 L MCV 102.8 H MCH 33.0 MCHC 32.1 RDW 17.1 H Plt Count 94 L MPV 10.3 Absolute Neuts (auto) 5.2 Neutrophils % 50.6 Lymphocytes % 45.1 H D Monocytes % 4.2 Eosinophils % 0.0 Basophils % 0.1 Nucleated RBC % 0 Sodium 144 Potassium 3.5 Chloride 108 H Carbon Dioxide 30 Anion Gap 6 L BUN 16 Creatinine 0.6 Creat Clearance w eGFR > 60 Random Glucose 78 Calcium 8.6 Phosphorus 3.5 Magnesium 1.8 Active Medications Current Medications Albuterol/Ipratropium (Duoneb -) 1 amp NEB RQID [facility] Last Admin: 03/23/18 08:16 Dose: 1 amp Baclofen (Lioresal -) 10 mg GT BID [facility] Last Admin: 03/23/18 10:54 Dose: 10 mg Clobazam (Onfi -) 5 mg GT DAILY [facility] Last Admin: 03/23/18 10:48 Dose: 5 mg Clonazepam (Klonopin -) 1.5 mg GT TID [facility] Last Admin: 03/23/18 13:57 Dose: 1.5 mg Heparin Sodium (Porcine) (Heparin -) 5,000 unit SQ TID [facility] Last Admin: 03/23/18 13:57 Dose: 5,000 unit Piperacillin Sod/Tazobactam (Sod 3.375 gm/ Dextrose) 50 mls @ 100 mls/hr IVPB Q8H-IV [facility]; Protocol Last Admin: 03/23/18 10:50 Dose: 100 mls/hr Lactobacillus Acidophilus (Bacid -) 1 tab GT HS [facility] Last Admin: 03/22/18 22:07 Dose: 1 tab Lamotrigine (Lamictal -) 200 mg GT BID [facility] Last Admin: 03/23/18 10:49 Dose: 200 mg Methylprednisolone Sodium Succinate (Solu-Medrol -) 40 mg IVPUSH DAILY [facility] Last Admin: 03/23/18 10:50 Dose: 40 mg Phenobarbital (Phenobarbital -) 45 mg GT BID [facility] Last Admin: 03/23/18 10:49 Dose: 45 mg Home Medications Medication Instructions Recorded Acyclovir 400 mg GT BID 04/25/17 Baclofen 10 mg GT BID 04/25/17 Benzoyl Peroxide 5% Gel - 1 applic TP BID 04/25/17 Budesonide/Formeterol Fumarate 1 inh PO BID 04/25/17 [SYMBICORT 160/4.5mcg -] Clobazam [Onfi -] 5 mg GT DAILY 04/25/17 Clonazepam 1.5 mg GT TID 04/25/17 Fluticasone Propionate [Flovent 50 mcg IH DAILY 04/25/17 Diskus] Fructooligosaccharides/Polydex 15 gm GT DAILY 04/25/17 [Fiber-Stat 15 gm/30 ml Liquid] Ipratropium/Albuterol Sulfate 3 ml IH Q6H 04/25/17 [Iprat-Albut 0.5-3(2.5) mg/3 ml] Lactobacillus Acidophilus 1 each GT HS 04/25/17 [Acidophilus] Lamotrigine 200 mg GT BID 04/25/17 Magnesium Hydrox 2400MG/30Ml [Milk 20 ml GT BID 04/25/17 of Magnesia -] Multivitamin [Poly-Vitamin] 1 each GT DAILY 04/25/17 Phenobarbital 48.6 mg GT BID 04/25/17 Ranitidine [Zantac -] 75 mg GT BID 04/25/17 ASSESSMENT/PLAN: Pt is a 22 y/o M with PMH herpes encephalitis, severe MR, seizures, asthma, report of intubation in the past, chronically on NIPPV who was sent from [place] for hypoxia and hypothermia. Pt admitted for sepsis and respiratory distress. #Pulmonology -Acute on chronic resp failure Pt. chronically uses NIPPV at [facility] NIPPV IPAP/EPAP: 12/6, RR:14, 50% FiO2 c/w susanne Pulmonology (Dr. Matute) consulted -R/o PNA hypothermia (chronically hypothermic) Likely aspiration considering unremarkable UA, chronic use of NIPPV, and recent hypoxia CXR read as having congestive & infiltrative changes c/w Zosyn ID (Dr. Douglas) consulted BCx: NTD UCx: NTD Vanc/Zosyn, NS, Solumedrol, Duonebs given in ED #Neurology -Seizure disorder c/w home meds klonopin, lamictal, Phenobarbital #F/E/N -No IVF at this time, Pt. euvolemic, encourage free water intake with G-Tube feeds. -monitor electrolytes replete as needed. -G-tube feeds w/ 70ml free water #PPx -Hep SubQ #Dispo -Tele Visit type - Emergency Visit Emergency Visit: Yes ED Registration Date: 03/19/18 Care time: The patient presented to the Emergency Department on the above date and was hospitalized for further evaluation of their emergent condition. - New Patient This patient is new to me today: No - Critical Care Critical Care patient: No - Discharge Referral Referred to [facility] Med P.C.: No
--- NOTE | 2018-03-23 20:50 | PN ---
Teaching Attending Note Name of Resident: Juan Miguel Black ATTENDING PHYSICIAN STATEMENT I saw and evaluated the patient. I reviewed the resident's note and discussed the case with the resident. I agree with the resident's findings and plan as documented. SUBJECTIVE: Patient is better today ,opening his eyes. continues to be on Bipap. OBJECTIVE: Vital Signs Temperature 97.9 F 03/23/18 18:00 Pulse Rate 81 03/23/18 18:00 Respiratory Rate 20 03/23/18 18:00 Blood Pressure 114/65 03/23/18 18:00 O2 Sat by Pulse Oximetry (%) 95 03/23/18 09:17 GEN: tachypnic, small stature, contracted LE HEENT: NC AT, dry membranes, on Bipap Neck: supple, no JVD Cardio: s1s2, RRR, tachypneic Pulm: tachypneic , decreased BS BL on bipap. Abd: soft, NT, nondistended Ext: contracted, pulses are positive CBCD WBC 10.3 K/mm3 (4.0-10.0) H 03/23/18 08:40 RBC 3.20 M/mm3 (4.00-5.60) L 03/23/18 08:40 Hgb 10.6 GM/dL (11.7-16.9) L 03/23/18 08:40 Hct 32.9 % (35.4-49) L 03/23/18 08:40 MCV 102.8 fl (80-96) H 03/23/18 08:40 MCHC 32.1 g/dl (32.0-35.9) 03/23/18 08:40 RDW 17.1 % (11.9-15.9) H 03/23/18 08:40 Plt Count 94 K/MM3 (134-434) L 03/23/18 08:40 MPV 10.3 fl (7.5-11.1) 03/23/18 08:40 CMP Sodium 144 mmol/L (136-145) 03/23/18 08:40 Potassium 3.5 mmol/L (3.5-5.1) 03/23/18 08:40 Chloride 108 mmol/L (98-107) H 03/23/18 08:40 Carbon Dioxide 30 mmol/L (21-32) 03/23/18 08:40 Anion Gap 6 MMOL/L (8-16) L 03/23/18 08:40 BUN 16 mg/dL (7-18) 03/23/18 08:40 Creatinine 0.6 mg/dL (0.55-1.3) 03/23/18 08:40 Creat Clearance w eGFR > 60 (>60) 03/23/18 08:40 Random Glucose 78 mg/dL (74-106) 03/23/18 08:40 Calcium 8.6 mg/dL (8.5-10.1) 03/23/18 08:40 Total Bilirubin 0.3 mg/dL (0.2-1) 03/20/18 08:40 AST 80 U/L (15-37) H 03/20/18 08:40 ALT 80 U/L (13-61) H 03/20/18 08:40 Alkaline Phosphatase 289 U/L (45-117) H 03/20/18 08:40 Total Protein 7.8 g/dl (6.4-8.2) 03/20/18 08:40 Albumin 3.0 g/dl (3.4-5.0) L 03/20/18 08:40 CARDIAC ENZYMES Troponin I < 0.02 ng/ml (0.00-0.05) 03/19/18 07:36 Current Medications Generic Name Dose Route Start Last Admin Trade Name Davidq PRN Reason Stop Dose Admin Albuterol/Ipratropium 1 amp 03/21/18 20:00 03/23/18 15:31 Duoneb - NEB 1 amp RQID [facility] Administration Baclofen 10 mg 03/21/18 22:00 03/23/18 10:54 Lioresal - GT 10 mg BID [facility] Administration Clobazam 5 mg 03/22/18 10:00 03/23/18 10:48 Onfi - GT 5 mg DAILY [facility] Administration Clonazepam 1.5 mg 03/21/18 22:00 03/23/18 13:57 Klonopin - GT 1.5 mg TID [facility] Administration Heparin Sodium (Porcine) 5,000 unit 03/21/18 22:00 03/23/18 13:57 Heparin - SQ 5,000 unit TID [facility] Administration Piperacillin Sod/Tazobactam 50 mls @ 100 mls/hr 03/22/18 02:00 11/13/18 18:39 Sod 3.375 gm/ Dextrose IVPB 100 mls/hr Q8H-IV [facility] Administration Protocol Lactobacillus Acidophilus 1 tab 03/21/18 22:00 03/22/18 22:07 Bacid - GT 1 tab HS [facility] Administration Lamotrigine 200 mg 03/21/18 22:00 03/23/18 10:49 Lamictal - GT 200 mg BID [facility] Administration Methylprednisolone Sodium Succinate 40 mg 03/22/18 10:00 03/23/18 10:50 Solu-Medrol - IVPUSH 40 mg DAILY [facility] Administration Phenobarbital 45 mg 03/21/18 22:00 03/23/18 10:49 Phenobarbital - GT 45 mg BID [facility] Administration Home Medications Medication Instructions Recorded Acyclovir 400 mg GT BID 04/25/17 Baclofen 10 mg GT BID 04/25/17 Benzoyl Peroxide 5% Gel - 1 applic TP BID 04/25/17 Budesonide/Formeterol Fumarate 1 inh PO BID 04/25/17 [SYMBICORT 160/4.5mcg -] Clobazam [Onfi -] 5 mg GT DAILY 04/25/17 Clonazepam 1.5 mg GT TID 04/25/17 Fluticasone Propionate [Flovent 50 mcg IH DAILY 04/25/17 Diskus] Fructooligosaccharides/Polydex 15 gm GT DAILY 04/25/17 [Fiber-Stat 15 gm/30 ml Liquid] Ipratropium/Albuterol Sulfate 3 ml IH Q6H 04/25/17 [Iprat-Albut 0.5-3(2.5) mg/3 ml] Lactobacillus Acidophilus 1 each GT HS 04/25/17 [Acidophilus] Lamotrigine 200 mg GT BID 04/25/17 Magnesium Hydrox 2400MG/30Ml [Milk 20 ml GT BID 04/25/17 of Magnesia -] Multivitamin [Poly-Vitamin] 1 each GT DAILY 04/25/17 Phenobarbital 48.6 mg GT BID 04/25/17 Ranitidine [Zantac -] 75 mg GT BID 04/25/17 CXR: [id number] EXAM#: TYPE/EXAM: RESULT: [id number] RAD/CHEST X-RAY PORTABLE* AP CHEST : Sepsis Imaging reveals markedly distended bowel loops with large heart and a mixture of congestive and infiltrative changes. The patient is rotated to the left. There is little change since 02/20/2018. Reported By: Clifford Murrieta MD 03/19/18 0831 ASSESSMENT AND PLAN: Patient is a 22yo M with PMHx of MR, CP, herpetic mengioencephalitis and asthma from [facility] presented to the ER with sepsis, hypothermic, and was found to be not to himself as per aid at the [facility]. # acute over chronic hypoxic respiratory failure due to aspiration PNA continue on bipap ( Normally patient is on Bipap at the [facility]) . doing better, will continue current care. Transferred to the floor from ICU. doing better. # Aspiration Pneumonia on Zosyn continue. RSV and Influenza negative. On IV Solumedrol #Distended Bowel Loops; started back on G-tube feeding # Sepsis due to possible to aspiration Pneumonia, Hypothermic will apply josh hugger if needed # Hypothermia resolved # Hx of Fecal retention with pseudo-obstruction # Transaminitis- possible to sepsis, will continue to monitor # Hx of MR # Hx of asthma- cont. inhalers DVT ppx- Heparin
[2018-03-23] MEDS: LACTOBACILLUS ACIDOPHILUS 1 TABLET GT SCH (23:58)
[2018-03-24] MEDS: HEPARIN NA (PORCINE) 5,000 UNITS/ML 1ML VIAL SQ SCH ×4 (00:01→23:26)
[2018-03-24] MEDS: BACLOFEN 10 MG TABLET (FP) GT SCH ×3 (00:01→23:26)
[2018-03-24] MEDS ORDERED: DEXTROSE 5%-WATER - 50 ML IVPB ONE ×3 (01:19→16:53)
[2018-03-24] MEDS ORDERED: PIPERACILLIN/TAZOBACTAM 3.375 GM VIAL IVPB ONE ×3 (01:19→16:53)
[2018-03-24] MEDS: PIPERACILLIN/TAZOB 3.375 GM 3.375 GM in DEXTROSE 5%-WATER - 50 ML IVPB SCH ×3 (01:26→17:06)
[2018-03-24] MEDS ORDERED: PT OWN MED DRAWER 7, Y5N ONE ×3 (01:37→18:50)
[2018-03-24] MEDS: clonazePAM 0.5 MG TABLET GT SCH ×3 (06:19→23:27)
[2018-03-24 06:29] LABS: MCH 33.7 pg (25.7-33.7)
[2018-03-24] MEDS: ALBUTEROL SO4 2.5/IPRATROPIUM 0.5 INH SOL 3 ML VIAL.NEB. NEB SCH ×4 (08:25→20:00)
[2018-03-24 08:35] LABS: BASO % 0.2 % (0-2.0); HEMATOCRIT 32.8 % (35.4-49); HEMOGLOBIN 10.8 GM/dL (11.7-16.9); LYMPH % 42.2 % (8-40); MEAN CELL VOLUME 102.1 fl (80-96); MEAN PLT VOLUME 10.5 fl (7.5-11.1); MONO % 4.7 % (3.8-10.2); NEUT % 52.9 % (42.8-82.8); PLATELET COUNT 108 K/MM3 (134-434); RBC 3.21 M/mm3 (4.00-5.60)
[2018-03-24 09:01] LABS: ALBUMIN 2.9 g/dl (3.4-5.0); ALK PHOS 286 U/L (45-117); ANION GAP 9 MMOL/L (8-16); BILIRUBIN,DIRECT 0.1 mg/dL (0.0-0.2); BILIRUBIN,TOTAL 0.5 mg/dL (0.2-1); BLOOD UREA NITROGEN 14 mg/dL (7-18); CHLORIDE 106 mmol/L (98-107); CO2 26 mmol/L (21-32); CREATININE 0.6 mg/dL (0.55-1.3); GLUCOSE,RANDOM 61 mg/dL (74-106); MAGNESIUM 1.9 mg/dL (1.8-2.4); PHOSPHOROUS 3.4 mg/dL (2.5-4.9); POTASSIUM 3.8 mmol/L (3.5-5.1); SGOT/AST 44 U/L (15-37); SGPT/ALT 58 U/L (13-61); SODIUM 142 mmol/L (136-145); TOT PROT 7.7 g/dl (6.4-8.2)
[2018-03-24] MEDS: methylPREDNISolone NA SUCC 40 MG/1 ML VIAL IVPUSH SCH (09:14)
[2018-03-24] MEDS: cloBAZam 10 MG TABLET GT SCH (09:14)
[2018-03-24] MEDS: PHENobarbital 30 MG TABLET GT SCH ×2 (09:15→23:27)
[2018-03-24] MEDS: lamoTRIgine 100 MG TABLET (FP) GT SCH ×2 (09:15→23:26)
--- NOTE | 2018-03-24 10:41 | PN ---
Physical Exam: SUBJECTIVE: Patient seen and examined. G-tube was clogged after flushing it was flowing freely. No acute events overnight. OBJECTIVE: Vital Signs Period Temp Pulse Resp BP Sys/Linares Pulse Ox Last 24 Hr 97.4 F-98.1 F 50-87 20-20 89-114/43-65 92-94 GENERAL: The patient is MR, NAD, awake with eyes open. HEAD: Normal with no signs of gross trauma. ENT: Ears normal, nares patent, oropharynx clear without exudates, moist mucous membranes. LUNGS: Decreased coarse breath sounds, mild wheezing, on BiPaP machine HEART: Regular rate and rhythm, S1, S2 without murmur ABDOMEN: Soft, nontender, nondistended, normoactive bowel sounds, no guarding, no rebound EXTREMITIES: 2+ dorsal pedal pulses, warm, well-perfused, no edema, decorticate posturing, no calf tenderness, rocker bottom feet. SKIN: Warm, dry, normal turgor Laboratory Results - last 24 hr 03/24/18 03/24/18 06:00 06:00 WBC 11.0 H RBC 3.21 L Hgb 10.8 L Hct 32.8 L MCV 102.1 H MCH 33.7 MCHC 33.0 RDW 17.0 H Plt Count 108 L MPV 10.5 Absolute Neuts (auto) 5.8 Neutrophils % 52.9 Lymphocytes % 42.2 H Monocytes % 4.7 Eosinophils % 0.0 Basophils % 0.2 Nucleated RBC % 0 Sodium 142 Potassium 3.8 Chloride 106 Carbon Dioxide 26 Anion Gap 9 BUN 14 Creatinine 0.6 Creat Clearance w eGFR > 60 Random Glucose 61 L Calcium 9.0 Phosphorus 3.4 Magnesium 1.9 Total Bilirubin 0.5 Direct Bilirubin 0.1 AST 44 H ALT 58 Alkaline Phosphatase 286 H Total Protein 7.7 Albumin 2.9 L Active Medications Current Medications Albuterol/Ipratropium (Duoneb -) 1 amp NEB RQID [facility] Last Admin: 03/24/18 08:25 Dose: 1 amp Baclofen (Lioresal -) 10 mg GT BID [facility] Last Admin: 03/24/18 09:15 Dose: 10 mg Clobazam (Onfi -) 5 mg GT DAILY [facility] Last Admin: 03/24/18 09:14 Dose: 5 mg Clonazepam (Klonopin -) 1.5 mg GT TID [facility] Last Admin: 03/24/18 06:19 Dose: 1.5 mg Heparin Sodium (Porcine) (Heparin -) 5,000 unit SQ TID [facility] Last Admin: 03/24/18 06:20 Dose: 5,000 unit Piperacillin Sod/Tazobactam (Sod 3.375 gm/ Dextrose) 50 mls @ 100 mls/hr IVPB Q8H-IV [facility]; Protocol Last Admin: 03/24/18 09:16 Dose: 100 mls/hr Lactobacillus Acidophilus (Bacid -) 1 tab GT HS [facility] Last Admin: 03/23/18 23:58 Dose: 1 tab Lamotrigine (Lamictal -) 200 mg GT BID [facility] Last Admin: 03/24/18 09:15 Dose: 200 mg Methylprednisolone Sodium Succinate (Solu-Medrol -) 40 mg IVPUSH DAILY [facility] Last Admin: 03/24/18 09:14 Dose: 40 mg Phenobarbital (Phenobarbital -) 45 mg GT BID [facility] Last Admin: 03/24/18 09:15 Dose: 45 mg Home Medications Medication Instructions Recorded Acyclovir 400 mg GT BID 04/25/17 Baclofen 10 mg GT BID 04/25/17 Benzoyl Peroxide 5% Gel - 1 applic TP BID 04/25/17 Budesonide/Formeterol Fumarate 1 inh PO BID 04/25/17 [SYMBICORT 160/4.5mcg -] Clobazam [Onfi -] 5 mg GT DAILY 04/25/17 Clonazepam 1.5 mg GT TID 04/25/17 Fluticasone Propionate [Flovent 50 mcg IH DAILY 04/25/17 Diskus] Fructooligosaccharides/Polydex 15 gm GT DAILY 04/25/17 [Fiber-Stat 15 gm/30 ml Liquid] Ipratropium/Albuterol Sulfate 3 ml IH Q6H 04/25/17 [Iprat-Albut 0.5-3(2.5) mg/3 ml] Lactobacillus Acidophilus 1 each GT HS 04/25/17 [Acidophilus] Lamotrigine 200 mg GT BID 04/25/17 Magnesium Hydrox 2400MG/30Ml [Milk 20 ml GT BID 04/25/17 of Magnesia -] Multivitamin [Poly-Vitamin] 1 each GT DAILY 04/25/17 Phenobarbital 48.6 mg GT BID 04/25/17 Ranitidine [Zantac -] 75 mg GT BID 04/25/17 ASSESSMENT/PLAN: Pt is a 22 y/o M with PMH herpes encephalitis, severe MR, seizures, asthma, report of intubation in the past, chronically on NIPPV who was sent from [place] for hypoxia and hypothermia. Pt admitted for sepsis and respiratory distress. #Pulmonology -Acute on chronic resp failure Pt. chronically uses NIPPV at [place] NIPPV IPAP/EPAP: 04/15, RR:14, 50% FiO2 c/w ambreenonebs Pulmonology (Dr. Matute) consulted Chest PT -R/o PNA hypothermia (chronically hypothermic) Likely aspiration considering unremarkable UA, chronic use of NIPPV, and recent hypoxia CXR read as having congestive & infiltrative changes, f/u CXR in AM c/w Zosyn ID (Dr. Douglas) consulted BCx: NTD UCx: NTD Vanc/Zosyn, NS, Solumedrol, Duonebs given in ED #Neurology -Seizure disorder c/w home meds klonopin, lamictal, Phenobarbital #F/E/N -No IVF at this time, Pt. euvolemic, encourage free water intake with G-Tube feeds. -monitor electrolytes replete as needed. -G-tube Promote feeds w/ 70ml free water #PPx -Hep SubQ #Dispo -Tele Visit type - Emergency Visit Emergency Visit: Yes ED Registration Date: 03/19/18 Care time: The patient presented to the Emergency Department on the above date and was hospitalized for further evaluation of their emergent condition. - New Patient This patient is new to me today: No - Critical Care Critical Care patient: No - Discharge Referral Referred to [facility] Med P.C.: No
--- NOTE | 2018-03-24 12:54 | PN ---
Progress Note, Physician - Current Medication List Current Medications: Active Medications Albuterol/Ipratropium (Duoneb -) 1 amp NEB RQID [facility] Last Admin: 03/24/18 11:52 Dose: 1 amp Baclofen (Lioresal -) 10 mg GT BID [facility] Last Admin: 03/24/18 09:15 Dose: 10 mg Clobazam (Onfi -) 5 mg GT DAILY [facility] Last Admin: 03/24/18 09:14 Dose: 5 mg Clonazepam (Klonopin -) 1.5 mg GT TID [facility] Last Admin: 03/24/18 06:19 Dose: 1.5 mg Heparin Sodium (Porcine) (Heparin -) 5,000 unit SQ TID [facility] Last Admin: 03/24/18 06:20 Dose: 5,000 unit Piperacillin Sod/Tazobactam (Sod 3.375 gm/ Dextrose) 50 mls @ 100 mls/hr IVPB Q8H-IV [facility]; Protocol Last Admin: 03/24/18 09:16 Dose: 100 mls/hr Lactobacillus Acidophilus (Bacid -) 1 tab GT HS [facility] Last Admin: 03/23/18 23:58 Dose: 1 tab Lamotrigine (Lamictal -) 200 mg GT BID [facility] Last Admin: 03/24/18 09:15 Dose: 200 mg Methylprednisolone Sodium Succinate (Solu-Medrol -) 40 mg IVPUSH DAILY [facility] Last Admin: 03/24/18 09:14 Dose: 40 mg Phenobarbital (Phenobarbital -) 45 mg GT BID [facility] Last Admin: 03/24/18 09:15 Dose: 45 mg - Objective Vital Signs: Vital Signs Temperature 96.5 F L 03/24/18 10:00 Pulse Rate 68 03/24/18 10:00 Respiratory Rate 20 03/24/18 10:00 Blood Pressure 96/64 03/24/18 10:00 O2 Sat by Pulse Oximetry (%) 100 03/24/18 11:52 Labs: CBC, BMP 03/24/18 06:00 03/24/18 06:00 INR, PTT INR 1.07 (0.83-1.09) 03/19/18 07:36
--- NOTE | 2018-03-24 13:31 | PN ---
Progress Note, Physician History of Present Illness: pulmonary awake,comfortable,-resp distress - Current Medication List Current Medications: Active Medications Albuterol/Ipratropium (Duoneb -) 1 amp NEB RQID [facility] Last Admin: 03/24/18 11:52 Dose: 1 amp Baclofen (Lioresal -) 10 mg GT BID [facility] Last Admin: 03/24/18 09:15 Dose: 10 mg Clobazam (Onfi -) 5 mg GT DAILY [facility] Last Admin: 03/24/18 09:14 Dose: 5 mg Clonazepam (Klonopin -) 1.5 mg GT TID [facility] Last Admin: 03/24/18 06:19 Dose: 1.5 mg Heparin Sodium (Porcine) (Heparin -) 5,000 unit SQ TID [facility] Last Admin: 03/24/18 06:20 Dose: 5,000 unit Piperacillin Sod/Tazobactam (Sod 3.375 gm/ Dextrose) 50 mls @ 100 mls/hr IVPB Q8H-IV [facility]; Protocol Last Admin: 03/24/18 09:16 Dose: 100 mls/hr Lactobacillus Acidophilus (Bacid -) 1 tab GT HS [facility] Last Admin: 03/23/18 23:58 Dose: 1 tab Lamotrigine (Lamictal -) 200 mg GT BID [facility] Last Admin: 03/24/18 09:15 Dose: 200 mg Methylprednisolone Sodium Succinate (Solu-Medrol -) 40 mg IVPUSH DAILY [facility] Last Admin: 03/24/18 09:14 Dose: 40 mg Phenobarbital (Phenobarbital -) 45 mg GT BID [facility] Last Admin: 03/24/18 09:15 Dose: 45 mg - Objective Vital Signs: Vital Signs Temperature 96.5 F L 03/24/18 10:00 Pulse Rate 68 03/24/18 10:00 Respiratory Rate 20 03/24/18 10:00 Blood Pressure 96/64 03/24/18 10:00 O2 Sat by Pulse Oximetry (%) 100 03/24/18 11:52 Constitutional: Yes: Calm, Cachectic Eyes: Yes: WNL HENT: Yes: WNL Neck: Yes: WNL Cardiovascular: Yes: Regular Rate and Rhythm, S1, S2 Respiratory: Yes: Rhonchi (few rhonchi) Gastrointestinal: Yes: Normal Bowel Sounds, Soft Extremities: Yes: Other (contracted) Labs: CBC, BMP 03/24/18 06:00 03/24/18 06:00 INR, PTT INR 1.07 (0.83-1.09) 03/19/18 07:36 - ....Imaging Chest X-ray: Report Reviewed, Image Reviewed (ROTATED FILM ,COMPLETE OPACIFICATION LEFT HEMITHORAX) Problem List - Problems (1) Pneumonia Code(s): J18.9 - PNEUMONIA, UNSPECIFIED ORGANISM (2) Asthma Code(s): J45.909 - UNSPECIFIED ASTHMA, UNCOMPLICATED (3) Epilepsy Code(s): G40.909 - EPILEPSY, UNSP, NOT INTRACTABLE, WITHOUT STATUS EPILEPTICUS (4) Profound mental retardation Code(s): F73 - PROFOUND INTELLECTUAL DISABILITIES (5) Seizure Code(s): R56.9 - UNSPECIFIED CONVULSIONS (6) Acute and chronic respiratory failure with hypoxia Code(s): J96.21 - ACUTE AND CHRONIC RESPIRATORY FAILURE WITH HYPOXIA (7) Hypotension Code(s): I95.9 - HYPOTENSION, UNSPECIFIED (8) Transaminitis Code(s): R74.0 - NONSPEC ELEV OF LEVELS OF TRANSAMNS & LACTIC ACID DEHYDRGNSE (9) Pneumonia Code(s): J18.9 - PNEUMONIA, UNSPECIFIED ORGANISM Qualifiers: Pneumonia type: due to unspecified organism Assessment/Plan ASSESSMENT/PLAN: Acute on Chronic Respiratory Failure improving R/O PNA Severe MR Cerebral palsy Herpetic meningoencephalitis (?) Asthma Increased LFTs Left lung atelectasis NIPPV as needed, O2 ABX coverage per ID Mucomyst Chest pt Aspiration precautions Medrol VTE prophylaxis BD TX CHEST X-RAY SLADE VILLALTA
[2018-03-24] MEDS ORDERED: DOCUSATE SODIUM 100 MG CAPSULE (FP) PO SCH (14:45)
[2018-03-24] MEDS ORDERED: DOCUSATE NA 100 MG/10 ML UNIT-DOSE CUPS PO PRN (14:56)
[2018-03-24] MEDS: ALBUTEROL SO4 0.083% IH SOL 2.5 MG/3 ML VIAL.NEB. NEB PRN ×2 (16:12→20:45)
[2018-03-24] MEDS: ACETYLCYSTEINE 20% 200MG/ML 4 ML VIAL *FOR ORAL / INH USE ONLY NEB SCH ×2 (16:12→20:45)
--- NOTE | 2018-03-24 18:37 | PN ---
Teaching Attending Note Name of Resident: Juan Miguel Black ATTENDING PHYSICIAN STATEMENT I saw and evaluated the patient. I reviewed the resident's note and discussed the case with the resident. I agree with the resident's findings and plan as documented. SUBJECTIVE: Not able to obtain hx. No events over night OBJECTIVE: NAd , sleeping . venti mask pn CV: RRR Lungs: clear anteriorly Ext : no edema , muscular atrophy abd: PEg in , no tenderness, NL BS . Nd . ASSESSMENT AND PLAN: 22 y/o young man withh/o herpetic meningioencephalitis, MR, seizures , recurrent aspiration PNA , who presented with hypothermia and was found ot have sepsis and acute resp failure due to aspiration PNA 1- sepsis 2- Aspiration PNA 3- acute hypoxic resp failure 4- transaminitis 5- Asthma exacerbation 6- h/o seizures plan : - cont zosyn - cont medrol - venti mask as needed - cont seizure meds - LFTs improved , monitor - Mucomyst - add PPI for GI prophylaxis - DVT Px
[2018-03-24] MEDS ORDERED: SENNOSIDES 8.6MG TABLET (FP) PO SCH (22:00)
[2018-03-24] MEDS: LACTOBACILLUS ACIDOPHILUS 1 TABLET GT SCH (23:27)
[2018-03-24] MEDS: SENNOSIDES 8.8 MG/5 ML BULK BOTTLE PO SCH (23:27)
[2018-03-25] MEDS ORDERED: DEXTROSE 5%-WATER - 50 ML IVPB ONE ×3 (01:22→17:38)
[2018-03-25] MEDS ORDERED: PIPERACILLIN/TAZOBACTAM 3.375 GM VIAL IVPB ONE ×3 (01:22→17:38)
[2018-03-25] MEDS: PIPERACILLIN/TAZOB 3.375 GM 3.375 GM in DEXTROSE 5%-WATER - 50 ML IVPB SCH ×3 (02:16→17:54)
[2018-03-25] MEDS: HEPARIN NA (PORCINE) 5,000 UNITS/ML 1ML VIAL SQ SCH ×3 (06:27→23:00)
[2018-03-25] MEDS: clonazePAM 0.5 MG TABLET GT SCH ×3 (06:27→23:01)
[2018-03-25 07:03] LABS: BASO % 0.1 % (0-2.0); HEMATOCRIT 31.5 % (35.4-49); HEMOGLOBIN 10.3 GM/dL (11.7-16.9); LYMPH % 47.4 % (8-40); MCH 33.4 pg (25.7-33.7); MCHC 32.8 g/dl (32.0-35.9); MEAN CELL VOLUME 101.8 fl (80-96); MEAN PLT VOLUME 9.9 fl (7.5-11.1); MONO % 5.7 % (3.8-10.2); NEUT % 46.8 % (42.8-82.8); PLATELET COUNT 109 K/MM3 (134-434); RBC 3.09 M/mm3 (4.00-5.60); RDW 16.6 % (11.9-15.9); WHITE BLOOD COUNT 10.8 K/mm3 (4.0-10.0)
[2018-03-25 07:21] LABS: ANION GAP 6 MMOL/L (8-16); BLOOD UREA NITROGEN 15 mg/dL (7-18); CALCIUM 8.8 mg/dL (8.5-10.1); CHLORIDE 104 mmol/L (98-107); CO2 30 mmol/L (21-32); CREATININE 0.7 mg/dL (0.55-1.3); GLUCOSE,RANDOM 79 mg/dL (74-106); MAGNESIUM 2.1 mg/dL (1.8-2.4); PHOSPHOROUS 3.4 mg/dL (2.5-4.9); POTASSIUM 3.5 mmol/L (3.5-5.1); SODIUM 140 mmol/L (136-145)
[2018-03-25] MEDS: ALBUTEROL SO4 2.5/IPRATROPIUM 0.5 INH SOL 3 ML VIAL.NEB. NEB SCH ×2 (08:40→12:47)
[2018-03-25] MEDS: ACETYLCYSTEINE 20% 200MG/ML 4 ML VIAL *FOR ORAL / INH USE ONLY NEB SCH ×4 (08:40→20:58)
[2018-03-25] MEDS ORDERED: PT OWN MED DRAWER 7, Y5N ONE ×2 (09:43→22:29)
[2018-03-25] MEDS: methylPREDNISolone NA SUCC 40 MG/1 ML VIAL IVPUSH SCH (09:52)
[2018-03-25] MEDS: lamoTRIgine 100 MG TABLET (FP) GT SCH ×2 (09:52→23:01)
[2018-03-25] MEDS: BACLOFEN 10 MG TABLET (FP) GT SCH ×2 (09:53→23:05)
[2018-03-25] MEDS: PHENobarbital 30 MG TABLET GT SCH ×2 (09:53→23:00)
[2018-03-25] MEDS: cloBAZam 10 MG TABLET GT SCH (09:56)
[2018-03-25] MEDS: PANTOPRAZOLE SOD 40 MG SUSPENSION PACKET PEG SCH (09:56)
--- NOTE | 2018-03-25 12:37 | PN ---
Teaching Attending Note Name of Resident: Juan Miguel Black ATTENDING PHYSICIAN STATEMENT I saw and evaluated the patient. I reviewed the resident's note and discussed the case with the resident. I agree with the resident's findings and plan as documented. SUBJECTIVE: No events over night , unable to obtain hx OBJECTIVE: NAD. CV: RRR Lungs: clear bilaterally Ext : no edema , muscular atrophy abd: PEg in , no tenderness, NL BS . ND. ASSESSMENT AND PLAN: 22 y/o young man withh/o herpetic meningioencephalitis, MR, seizures , recurrent aspiration PNA , who presented with hypothermia and was found ot have sepsis and acute resp failure due to aspiration PNA 1- sepsis 2- Aspiration PNA 3- Acute hypoxic resp failure 4- transaminitis 5- Asthma exacerbation 6- h/o seizures plan : - cont zosyn day 7 - cont medrol - venti mask as needed - cont seizure meds - cont to monitor LFts - Mucomyst - PPI - DVT Px - if BP remains of low side , can start IVF HLOC
--- NOTE | 2018-03-25 13:00 | PN ---
Physical Exam: SUBJECTIVE: Patient seen and examined. No acute events overnight. Pt. no longer on BiPaP. Pt. on Venturi mask 50% FiO2 and 12L O2. OBJECTIVE: Vital Signs Period Temp Pulse Resp BP Sys/Linares Pulse Ox Last 24 Hr 97.3 F-99.0 F 52-72 20-22 92-111/41-65 96-100 GENERAL: The patient is MR, NAD, awake with eyes open, had productive coughing fit of white sputum. HEAD: Normal with no signs of gross trauma. ENT: Ears normal, nares patent, oropharynx clear without exudates, moist mucous membranes. LUNGS: Decreased coarse breath sounds, mild wheezing, on Venturi mask (FiO2: 50% , 12L ) HEART: Regular rate and rhythm, S1, S2 without murmur ABDOMEN: Soft, nontender, nondistended, normoactive bowel sounds, no guarding, no rebound EXTREMITIES: 2+ dorsal pedal pulses, warm, well-perfused, no edema, decorticate posturing, no calf tenderness, rocker bottom feet, stage 1 ulcers on left 5th digit, and right heel. SKIN: Warm, dry, normal turgor Laboratory Results - last 24 hr 03/25/18 03/25/18 06:00 06:00 WBC 10.8 H RBC 3.09 L Hgb 10.3 L Hct 31.5 L MCV 101.8 H MCH 33.4 MCHC 32.8 RDW 16.6 H Plt Count 109 L MPV 9.9 Absolute Neuts (auto) 5.1 Neutrophils % 46.8 Lymphocytes % 47.4 H Monocytes % 5.7 Eosinophils % 0.0 Basophils % 0.1 Nucleated RBC % 0 Sodium 140 Potassium 3.5 Chloride 104 Carbon Dioxide 30 Anion Gap 6 L BUN 15 Creatinine 0.7 Creat Clearance w eGFR > 60 Random Glucose 79 Calcium 8.8 Phosphorus 3.4 Magnesium 2.1 Active Medications Current Medications Acetylcysteine (Mucomyst 20 Oral / Inh Use Only*) 100 mg NEB RQID [facility] Last Admin: 03/25/18 12:48 Dose: 100 mg Albuterol Sulfate (Ventolin 0.083% Nebulizer Soln -) 1 amp NEB Q8H PRN PRN Reason: SHORT OF BREATH/WHEEZING Last Admin: 03/24/18 20:45 Dose: 1 amp Albuterol/Ipratropium (Duoneb -) 1 amp NEB RQID [facility] Last Admin: 03/25/18 12:47 Dose: 1 amp Baclofen (Lioresal -) 10 mg GT BID [facility] Last Admin: 03/25/18 09:53 Dose: 10 mg Clobazam (Onfi -) 5 mg GT DAILY [facility] Last Admin: 03/25/18 09:56 Dose: 5 mg Clonazepam (Klonopin -) 1.5 mg GT TID [facility] Last Admin: 03/25/18 06:27 Dose: 1.5 mg Docusate Sodium (Colace Liquid -) 100 mg PO DAILY PRN PRN Reason: CONSTIPATION Heparin Sodium (Porcine) (Heparin -) 5,000 unit SQ TID [facility] Last Admin: 03/25/18 06:27 Dose: 5,000 unit Piperacillin Sod/Tazobactam (Sod 3.375 gm/ Dextrose) 50 mls @ 100 mls/hr IVPB Q8H-IV [facility]; Protocol Last Admin: 03/25/18 09:52 Dose: 100 mls/hr Lactobacillus Acidophilus (Bacid -) 1 tab GT HS [facility] Last Admin: 03/24/18 23:27 Dose: 1 tab Lamotrigine (Lamictal -) 200 mg GT BID [facility] Last Admin: 03/25/18 09:52 Dose: 200 mg Methylprednisolone Sodium Succinate (Solu-Medrol -) 40 mg IVPUSH DAILY [facility] Last Admin: 03/25/18 09:52 Dose: 40 mg Pantoprazole Sodium (Protonix Packets For Oral Suspension -) 40 mg PEG DAILY [facility] Last Admin: 03/25/18 09:56 Dose: 40 mg Phenobarbital (Phenobarbital -) 45 mg GT BID [facility] Last Admin: 03/25/18 09:53 Dose: 45 mg Senna (Senna Oral Solution -) 8.8 mg PO HS [facility] Last Admin: 03/24/18 23:27 Dose: 8.8 mg Home Medications Medication Instructions Recorded Acyclovir 400 mg GT BID 04/25/17 Baclofen 10 mg GT BID 04/25/17 Benzoyl Peroxide 5% Gel - 1 applic TP BID 04/25/17 Budesonide/Formeterol Fumarate 1 inh PO BID 04/25/17 [SYMBICORT 160/4.5mcg -] Clobazam [Onfi -] 5 mg GT DAILY 04/25/17 Clonazepam 1.5 mg GT TID 04/25/17 Fluticasone Propionate [Flovent 50 mcg IH DAILY 04/25/17 Diskus] Fructooligosaccharides/Polydex 15 gm GT DAILY 04/25/17 [Fiber-Stat 15 gm/30 ml Liquid] Ipratropium/Albuterol Sulfate 3 ml IH Q6H 04/25/17 [Iprat-Albut 0.5-3(2.5) mg/3 ml] Lactobacillus Acidophilus 1 each GT HS 04/25/17 [Acidophilus] Lamotrigine 200 mg GT BID 04/25/17 Magnesium Hydrox 2400MG/30Ml [Milk 20 ml GT BID 04/25/17 of Magnesia -] Multivitamin [Poly-Vitamin] 1 each GT DAILY 04/25/17 Phenobarbital 48.6 mg GT BID 04/25/17 Ranitidine [Zantac -] 75 mg GT BID 04/25/17 ASSESSMENT/PLAN: Pt is a 22 y/o M with PMH herpes encephalitis, severe MR, seizures, asthma, report of intubation in the past, chronically on NIPPV who was sent from [place] for hypoxia and hypothermia. Pt admitted for sepsis and respiratory distress. #Pulmonology -Acute on chronic resp failure Pt. chronically uses NIPPV at [place] c/w Venturi mask 50% FiO2, 12L c/w ambreenonebs Pulmonology (Dr. Matute) consulted Chest PT -R/o PNA Likely aspiration considering unremarkable UA, chronic use of NIPPV, and recent hypoxia CXR read as having congestive & infiltrative changes, f/u CXR in AM c/w Zosyn ID (Dr. Douglas) consulted BCx: NTD UCx: NTD Vanc/Zosyn, NS, Solumedrol, Duonebs given in ED hypothermia (chronically hypothermic)- on admission #Neurology -Seizure disorder c/w home meds klonopin, lamictal, Phenobarbital #F/E/N -No IVF at this time, Pt. euvolemic, encourage free water intake with G-Tube feeds. -monitor electrolytes replete as needed. -G-tube Promote feeds w/ 70ml free water #PPx -Hep SubQ #Dispo -Tele Visit type - Emergency Visit Emergency Visit: Yes ED Registration Date: 03/19/18 Care time: The patient presented to the Emergency Department on the above date and was hospitalized for further evaluation of their emergent condition. - New Patient This patient is new to me today: No - Critical Care Critical Care patient: No - Discharge Referral Referred to [facility] No
--- NOTE | 2018-03-25 13:12 | PN ---
Progress Note, Physician - Current Medication List Current Medications: Active Medications Acetylcysteine (Mucomyst 20 Oral / Inh Use Only*) 100 mg NEB RQID [facility] Last Admin: 03/25/18 12:48 Dose: 100 mg Albuterol Sulfate (Ventolin 0.083% Nebulizer Soln -) 1 amp NEB Q8H PRN PRN Reason: SHORT OF BREATH/WHEEZING Last Admin: 03/24/18 20:45 Dose: 1 amp Albuterol/Ipratropium (Duoneb -) 1 amp NEB RQID [facility] Last Admin: 03/25/18 12:47 Dose: 1 amp Baclofen (Lioresal -) 10 mg GT BID [facility] Last Admin: 03/25/18 09:53 Dose: 10 mg Clobazam (Onfi -) 5 mg GT DAILY [facility] Last Admin: 03/25/18 09:56 Dose: 5 mg Clonazepam (Klonopin -) 1.5 mg GT TID [facility] Last Admin: 03/25/18 06:27 Dose: 1.5 mg Docusate Sodium (Colace Liquid -) 100 mg PO DAILY PRN PRN Reason: CONSTIPATION Heparin Sodium (Porcine) (Heparin -) 5,000 unit SQ TID [facility] Last Admin: 03/25/18 06:27 Dose: 5,000 unit Piperacillin Sod/Tazobactam (Sod 3.375 gm/ Dextrose) 50 mls @ 100 mls/hr IVPB Q8H-IV [facility]; Protocol Last Admin: 03/25/18 09:52 Dose: 100 mls/hr Lactobacillus Acidophilus (Bacid -) 1 tab GT [facility] Last Admin: 03/24/18 23:27 Dose: 1 tab Lamotrigine (Lamictal -) 200 mg GT BID [facility] Last Admin: 03/25/18 09:52 Dose: 200 mg Methylprednisolone Sodium Succinate (Solu-Medrol -) 40 mg IVPUSH DAILY [facility] Last Admin: 03/25/18 09:52 Dose: 40 mg Pantoprazole Sodium (Protonix Packets For Oral Suspension -) 40 mg PEG DAILY [facility] Last Admin: 03/25/18 09:56 Dose: 40 mg Phenobarbital (Phenobarbital -) 45 mg GT BID [facility] Last Admin: 03/25/18 09:53 Dose: 45 mg Senna (Senna Oral Solution -) 8.8 mg PO HS [facility] Last Admin: 03/24/18 23:27 Dose: 8.8 mg - Objective Vital Signs: Vital Signs Temperature 97.5 F L 03/25/18 10:00 Pulse Rate 66 03/25/18 10:00 Respiratory Rate 20 03/25/18 10:00 Blood Pressure 92/42 L 03/25/18 10:00 O2 Sat by Pulse Oximetry (%) 96 03/25/18 09:00 Labs: CBC, BMP 03/25/18 06:00 03/25/18 06:00 INR, PTT INR 1.07 (0.83-1.09) 03/19/18 07:36
--- NOTE | 2018-03-25 14:16 | PN ---
Progress Note (short form) - Note Progress Note: Mildly tachypneic at rest on VM O2. Afebrile. CXR: complete left atelectasis. Intake & Output 03/22/18 03/23/18 03/24/18 03/25/18 23:59 23:59 23:59 23:59 Intake Total 1180 2670 190 Balance 1180 2670 190 Last Vital Signs Temp Pulse Resp BP Pulse Ox 97.5 F L 66 20 92/42 L 96 03/25/18 10:00 03/25/18 10:00 03/25/18 10:00 03/25/18 10:00 03/25/18 09:00 Active Medications Acetylcysteine (Mucomyst 20 Oral / Inh Use Only*) 100 mg NEB RQID [facility] Last Admin: 03/25/18 12:48 Dose: 100 mg Albuterol Sulfate (Ventolin 0.083% Nebulizer Soln -) 1 amp NEB Q8H PRN PRN Reason: SHORT OF BREATH/WHEEZING Last Admin: 03/24/18 20:45 Dose: 1 amp Albuterol/Ipratropium (Duoneb -) 1 amp NEB RQID [facility] Last Admin: 03/25/18 12:47 Dose: 1 amp Baclofen (Lioresal -) 10 mg GT BID [facility] Last Admin: 03/25/18 09:53 Dose: 10 mg Clobazam (Onfi -) 5 mg GT DAILY [facility] Last Admin: 03/25/18 09:56 Dose: 5 mg Clonazepam (Klonopin -) 1.5 mg GT TID [facility] Last Admin: 03/25/18 06:27 Dose: 1.5 mg Docusate Sodium (Colace Liquid -) 100 mg PO DAILY PRN PRN Reason: CONSTIPATION Heparin Sodium (Porcine) (Heparin -) 5,000 unit SQ TID [facility] Last Admin: 03/25/18 06:27 Dose: 5,000 unit Piperacillin Sod/Tazobactam (Sod 3.375 gm/ Dextrose) 50 mls @ 100 mls/hr IVPB Q8H-IV [facility]; Protocol Last Admin: 03/25/18 09:52 Dose: 100 mls/hr Lactobacillus Acidophilus (Bacid -) 1 tab GT HS [facility] Last Admin: 03/24/18 23:27 Dose: 1 tab Lamotrigine (Lamictal -) 200 mg GT BID [facility] Last Admin: 03/25/18 09:52 Dose: 200 mg Methylprednisolone Sodium Succinate (Solu-Medrol -) 40 mg IVPUSH DAILY [facility] Last Admin: 03/25/18 09:52 Dose: 40 mg Pantoprazole Sodium (Protonix Packets For Oral Suspension -) 40 mg PEG DAILY [facility] Last Admin: 03/25/18 09:56 Dose: 40 mg Phenobarbital (Phenobarbital -) 45 mg GT BID [facility] Last Admin: 03/25/18 09:53 Dose: 45 mg Senna (Senna Oral Solution -) 8.8 mg PO HS [facility] Last Admin: 03/24/18 23:27 Dose: 8.8 mg Constitutional: Yes: Calm, Cachectic Eyes: Yes: WNL HENT: Yes: WNL Neck: Yes: WNL Cardiovascular: Yes: Regular Rate and Rhythm, S1, S2 Respiratory: Yes: Rhonchi (few rhonchi) Gastrointestinal: Yes: Normal Bowel Sounds, Soft Extremities: Yes: Other (contracted) Labs: Laboratory Results - last 24 hr 03/25/18 03/25/18 06:00 06:00 WBC 10.8 H RBC 3.09 L Hgb 10.3 L Hct 31.5 L MCV 101.8 H MCH 33.4 MCHC 32.8 RDW 16.6 H Plt Count 109 L MPV 9.9 Absolute Neuts (auto) 5.1 Neutrophils % 46.8 Lymphocytes % 47.4 H Monocytes % 5.7 Eosinophils % 0.0 Basophils % 0.1 Nucleated RBC % 0 Sodium 140 Potassium 3.5 Chloride 104 Carbon Dioxide 30 Anion Gap 6 L BUN 15 Creatinine 0.7 Creat Clearance w eGFR > 60 Random Glucose 79 Calcium 8.8 Phosphorus 3.4 Magnesium 2.1 Problem List - Problems (1) Pneumonia Code(s): J18.9 - PNEUMONIA, UNSPECIFIED ORGANISM (2) Asthma Code(s): J45.909 - UNSPECIFIED ASTHMA, UNCOMPLICATED (3) Epilepsy Code(s): G40.909 - EPILEPSY, UNSP, NOT INTRACTABLE, WITHOUT STATUS EPILEPTICUS (4) Profound mental retardation Code(s): F73 - PROFOUND INTELLECTUAL DISABILITIES (5) Seizure Code(s): R56.9 - UNSPECIFIED CONVULSIONS (6) Acute and chronic respiratory failure with hypoxia Code(s): J96.21 - ACUTE AND CHRONIC RESPIRATORY FAILURE WITH HYPOXIA (7) Hypotension Code(s): I95.9 - HYPOTENSION, UNSPECIFIED (8) Transaminitis Code(s): R74.0 - NONSPEC ELEV OF LEVELS OF TRANSAMNS & LACTIC ACID DEHYDRGNSE (9) Pneumonia Code(s): J18.9 - PNEUMONIA, UNSPECIFIED ORGANISM Qualifiers: Pneumonia type: due to unspecified organism Assessment/Plan ASSESSMENT/PLAN: Acute on Chronic Respiratory Failure improving R/O PNA Severe MR Cerebral palsy Herpetic meningoencephalitis (?) Asthma Increased LFTs Left lung atelectasis VM O2 ABX coverage per ID Mucomyst Chest PT Aspiration precautions Medrol VTE prophylaxis BD TX Follow CXR Dr Price
[2018-03-25] MEDS: ALBUTEROL SO4 0.083% IH SOL 2.5 MG/3 ML VIAL.NEB. NEB SCH ×2 (16:42→20:58)
[2018-03-25] MEDS: LACTOBACILLUS ACIDOPHILUS 1 TABLET GT SCH (23:00)
[2018-03-25] MEDS: SENNOSIDES 8.8 MG/5 ML BULK BOTTLE PO SCH (23:05)
[2018-03-26] MEDS ORDERED: DEXTROSE 5%-WATER - 50 ML IVPB ONE ×3 (01:16→15:50)
[2018-03-26] MEDS ORDERED: PIPERACILLIN/TAZOBACTAM 3.375 GM VIAL IVPB ONE ×3 (01:16→15:50)
[2018-03-26] MEDS: PIPERACILLIN/TAZOB 3.375 GM 3.375 GM in DEXTROSE 5%-WATER - 50 ML IVPB SCH ×3 (02:31→17:51)
[2018-03-26] MEDS: clonazePAM 0.5 MG TABLET GT SCH ×3 (06:26→21:56)
[2018-03-26] MEDS: HEPARIN NA (PORCINE) 5,000 UNITS/ML 1ML VIAL SQ SCH ×3 (06:26→21:57)
[2018-03-26 07:42] LABS: ALBUMIN 3.1 g/dl (3.4-5.0); ALK PHOS 290 U/L (45-117); ANION GAP 7 MMOL/L (8-16); BILIRUBIN,DIRECT 0.1 mg/dL (0.0-0.2); BILIRUBIN,TOTAL 0.3 mg/dL (0.2-1); BLOOD UREA NITROGEN 15 mg/dL (7-18); CHLORIDE 101 mmol/L (98-107); CO2 29 mmol/L (21-32); CREATININE 0.8 mg/dL (0.55-1.3); GLUCOSE,RANDOM 81 mg/dL (74-106); MAGNESIUM 2.1 mg/dL (1.8-2.4); PHOSPHOROUS 3.2 mg/dL (2.5-4.9); POTASSIUM 3.5 mmol/L (3.5-5.1); SGOT/AST 36 U/L (15-37); SGPT/ALT 54 U/L (13-61); SODIUM 137 mmol/L (136-145); TOT PROT 8.2 g/dl (6.4-8.2)
[2018-03-26] MEDS: ACETYLCYSTEINE 20% 200MG/ML 4 ML VIAL *FOR ORAL / INH USE ONLY NEB SCH ×4 (08:32→21:43)
[2018-03-26] MEDS: ALBUTEROL SO4 0.083% IH SOL 2.5 MG/3 ML VIAL.NEB. NEB SCH ×4 (08:34→21:43)
[2018-03-26 09:14] LABS: BASO % 0.2 % (0-2.0); HEMATOCRIT 34.1 % (35.4-49); HEMOGLOBIN 11.1 GM/dL (11.7-16.9); MCH 32.8 pg (25.7-33.7); MCHC 32.5 g/dl (32.0-35.9); MEAN CELL VOLUME 101.2 fl (80-96); MEAN PLT VOLUME 9.3 fl (7.5-11.1); MONO % 6.4 % (3.8-10.2); NEUT % 63.4 % (42.8-82.8); PLATELET COUNT 139 K/MM3 (134-434); RBC 3.37 M/mm3 (4.00-5.60); RDW 16.3 % (11.9-15.9); WHITE BLOOD COUNT 13.4 K/mm3 (4.0-10.0)
[2018-03-26] MEDS: methylPREDNISolone NA SUCC 40 MG/1 ML VIAL IVPUSH SCH (09:59)
[2018-03-26] MEDS: cloBAZam 10 MG TABLET GT SCH (09:59)
[2018-03-26] MEDS: lamoTRIgine 100 MG TABLET (FP) GT SCH ×2 (09:59→21:56)
[2018-03-26] MEDS: BACLOFEN 10 MG TABLET (FP) GT SCH ×2 (10:00→21:57)
[2018-03-26] MEDS: PHENobarbital 30 MG TABLET GT SCH ×2 (10:00→21:56)
[2018-03-26] MEDS: PANTOPRAZOLE SOD 40 MG SUSPENSION PACKET PEG SCH (10:00)
[2018-03-26] MEDS: DEXTROSE 5%-NORMAL SALINE 1,000 ML IV SCH (10:55)
--- NOTE | 2018-03-26 11:33 | PN ---
Progress Note, Physician - Current Medication List Current Medications: Active Medications Acetylcysteine (Mucomyst 20 Oral / Inh Use Only*) 100 mg NEB RQID [facility] Last Admin: 03/26/18 08:32 Dose: 100 mg Albuterol Sulfate (Ventolin 0.083% Nebulizer Soln -) 1 amp NEB Q8H PRN PRN Reason: SHORT OF BREATH/WHEEZING Last Admin: 03/24/18 20:45 Dose: 1 amp Albuterol Sulfate (Ventolin 0.083% Nebulizer Soln -) 1 amp NEB RQID [facility] Last Admin: 03/26/18 08:34 Dose: 1 amp Baclofen (Lioresal -) 10 mg GT BID [facility] Last Admin: 03/26/18 10:00 Dose: 10 mg Clobazam (Onfi -) 5 mg GT DAILY [facility] Last Admin: 03/26/18 09:59 Dose: 5 mg Clonazepam (Klonopin -) 1.5 mg GT TID [facility] Last Admin: 03/26/18 06:26 Dose: 1.5 mg Docusate Sodium (Colace Liquid -) 100 mg PO DAILY PRN PRN Reason: CONSTIPATION Heparin Sodium (Porcine) (Heparin -) 5,000 unit SQ TID [facility] Last Admin: 03/26/18 06:26 Dose: 5,000 unit Piperacillin Sod/Tazobactam (Sod 3.375 gm/ Dextrose) 50 mls @ 100 mls/hr IVPB Q8H-IV [facility]; Protocol Last Admin: 03/26/18 10:00 Dose: 100 mls/hr Dextrose/Sodium Chloride (D5-Ns -) 1,000 mls @ 75 mls/hr IV [facility] Lactobacillus Acidophilus (Bacid -) 1 tab GT HS [facility] Last Admin: 03/25/18 23:00 Dose: 1 tab Lamotrigine (Lamictal -) 200 mg GT BID [facility] Last Admin: 03/26/18 09:59 Dose: 200 mg Methylprednisolone Sodium Succinate (Solu-Medrol -) 30 mg IVPUSH DAILY [facility] Pantoprazole Sodium (Protonix Packets For Oral Suspension -) 40 mg PEG DAILY [facility] Last Admin: 03/26/18 10:00 Dose: 40 mg Phenobarbital (Phenobarbital -) 45 mg GT BID [facility] Last Admin: 03/26/18 10:00 Dose: 45 mg Senna (Senna Oral Solution -) 8.8 mg PO HS [facility] Last Admin: 03/25/18 23:05 Dose: 8.8 mg - Objective Vital Signs: Vital Signs Temperature 99.8 F H 03/26/18 06:00 Pulse Rate 86 03/26/18 08:00 Respiratory Rate 20 03/26/18 08:00 Blood Pressure 90/41 L 03/26/18 08:00 O2 Sat by Pulse Oximetry (%) 96 03/25/18 21:00 Labs: CBC, BMP 03/26/18 09:00 03/26/18 06:25 INR, PTT INR 1.07 (0.83-1.09) 03/19/18 07:36
--- NOTE | 2018-03-26 13:04 | PN ---
Progress Note, Physician History of Present Illness: PULMONARY ALERT,NON-VERBAL,-RESP DISTRESS,LESS CONGESTED - Current Medication List Current Medications: Active Medications Acetylcysteine (Mucomyst 20 Oral / Inh Use Only*) 100 mg NEB RQID [facility] Last Admin: 03/26/18 11:58 Dose: 100 mg Albuterol Sulfate (Ventolin 0.083% Nebulizer Soln -) 1 amp NEB Q8H PRN PRN Reason: SHORT OF BREATH/WHEEZING Last Admin: 03/24/18 20:45 Dose: 1 amp Albuterol Sulfate (Ventolin 0.083% Nebulizer Soln -) 1 amp NEB RQID [facility] Last Admin: 03/26/18 11:58 Dose: 1 amp Baclofen (Lioresal -) 10 mg GT BID [facility] Last Admin: 03/26/18 10:00 Dose: 10 mg Clobazam (Onfi -) 5 mg GT DAILY [facility] Last Admin: 03/26/18 09:59 Dose: 5 mg Clonazepam (Klonopin -) 1.5 mg GT TID [facility] Last Admin: 03/26/18 06:26 Dose: 1.5 mg Docusate Sodium (Colace Liquid -) 100 mg PO DAILY PRN PRN Reason: CONSTIPATION Heparin Sodium (Porcine) (Heparin -) 5,000 unit SQ TID [facility] Last Admin: 03/26/18 06:26 Dose: 5,000 unit Piperacillin Sod/Tazobactam (Sod 3.375 gm/ Dextrose) 50 mls @ 100 mls/hr IVPB Q8H-IV [facility]; Protocol Last Admin: 03/26/18 10:00 Dose: 100 mls/hr Dextrose/Sodium Chloride (D5-Ns -) 1,000 mls @ 75 mls/hr IV [facility]IR [facility] Lactobacillus Acidophilus (Bacid -) 1 tab GT HS [facility] Last Admin: 03/25/18 23:00 Dose: 1 tab Lamotrigine (Lamictal -) 200 mg GT BID [facility] Last Admin: 03/26/18 09:59 Dose: 200 mg Methylprednisolone Sodium Succinate (Solu-Medrol -) 30 mg IVPUSH DAILY [facility] Pantoprazole Sodium (Protonix Packets For Oral Suspension -) 40 mg PEG DAILY [facility] Last Admin: 03/26/18 10:00 Dose: 40 mg Phenobarbital (Phenobarbital -) 45 mg GT BID [facility] Last Admin: 03/26/18 10:00 Dose: 45 mg Senna (Senna Oral Solution -) 8.8 mg PO HS [facility] Last Admin: 03/25/18 23:05 Dose: 8.8 mg - Objective Vital Signs: Vital Signs Temperature 99.8 F H 03/26/18 06:00 Pulse Rate 86 03/26/18 08:00 Respiratory Rate 20 03/26/18 08:00 Blood Pressure 90/41 L 03/26/18 08:00 O2 Sat by Pulse Oximetry (%) 99 03/26/18 10:00 Constitutional: Yes: Calm, Cachectic Eyes: Yes: Occular Prosthesis HENT: Yes: WNL Neck: Yes: WNL Cardiovascular: Yes: Regular Rate and Rhythm, S1, S2 Respiratory: Yes: Rhonchi (FEW RHONCHI) Gastrointestinal: Yes: Normal Bowel Sounds, Soft Extremities: Yes: Other (CONTRACTED) Edema: No Labs: CBC, BMP 03/26/18 09:00 03/26/18 06:25 INR, PTT INR 1.07 (0.83-1.09) 03/19/18 07:36 - ....Imaging Chest X-ray: Report Reviewed (IMPROVED AERATION LEFT LUNG), Image Reviewed Problem List - Problems (1) Pneumonia Code(s): J18.9 - PNEUMONIA, UNSPECIFIED ORGANISM (2) Asthma Code(s): J45.909 - UNSPECIFIED ASTHMA, UNCOMPLICATED (3) Epilepsy Code(s): G40.909 - EPILEPSY, UNSP, NOT INTRACTABLE, WITHOUT STATUS EPILEPTICUS (4) Profound mental retardation Code(s): F73 - PROFOUND INTELLECTUAL DISABILITIES (5) Seizure Code(s): R56.9 - UNSPECIFIED CONVULSIONS (6) Acute and chronic respiratory failure with hypoxia Code(s): J96.21 - ACUTE AND CHRONIC RESPIRATORY FAILURE WITH HYPOXIA (7) Hypotension Code(s): I95.9 - HYPOTENSION, UNSPECIFIED (8) Transaminitis Code(s): R74.0 - NONSPEC ELEV OF LEVELS OF TRANSAMNS & LACTIC ACID DEHYDRGNSE (9) Pneumonia Code(s): J18.9 - PNEUMONIA, UNSPECIFIED ORGANISM Qualifiers: Pneumonia type: due to unspecified organism Assessment/Plan ASSESSMENT/PLAN: Acute on Chronic Respiratory Failure improving R/O PNA Severe MR Cerebral palsy Herpetic meningoencephalitis (?) Asthma Increased LFTs Left lung atelectasis improved NIPPV as needed, O2 ABX coverage per ID Mucomyst Chest pt Aspiration precautions Medrol VTE prophylaxis BD TX DR VILLALTA
--- NOTE | 2018-03-26 15:30 | PN ---
Teaching Attending Note Name of Resident: Juan Miguel Black ATTENDING PHYSICIAN STATEMENT I saw and evaluated the patient. I reviewed the resident's note and discussed the case with the resident. I agree with the resident's findings and plan as documented. SUBJECTIVE: no events over night .this am peg came out and was placed back by resident OBJECTIVE: NAD. CV: RRR Lungs: clear bilaterally Ext : no edema , muscular atrophy abd: PEg in , no tenderness, NL BS . ND. ASSESSMENT AND PLAN: 22 y/o young man withh/o herpetic meningioencephalitis, MR, seizures , recurrent aspiration PNA , who presented with hypothermia and was found ot have sepsis and acute resp failure due to aspiration PNA 1- sepsis 2- Aspiration PNA 3- Acute hypoxic resp failure 4- transaminitis 5- Asthma exacerbation 6- h/o seizures plan : - cont zosyn day 8 . monitor WBc, likely steroid effect - repeat cxray with resolution of atelectasis/mucus plugging - cont medrol . decrease dose - start IVF - venti mask as needed - cont seizure meds - cont to monitor LFts - Mucomyst - PPI - DVT Px - PEG studies to confirm location HLOC
[2018-03-26] MEDS ORDERED: ACETAMINOPHEN 650 MG/20.3 ML ORAL SOLUTION (CUPS) PO PRN (18:06)
[2018-03-26] MEDS: ACETAMINOPHEN 650 MG/20.3 ML ORAL SOLUTION (CUPS) PO PRN (19:23)
[2018-03-26] MEDS ORDERED: PT OWN MED DRAWER 7, Y5N ONE (21:55)
[2018-03-26] MEDS: LACTOBACILLUS ACIDOPHILUS 1 TABLET GT SCH (21:56)
[2018-03-26] MEDS: SENNOSIDES 8.8 MG/5 ML BULK BOTTLE PO SCH (21:57)
[2018-03-27] MEDS ORDERED: PIPERACILLIN/TAZOBACTAM 3.375 GM VIAL IVPB ONE ×3 (01:15→17:14)
[2018-03-27] MEDS ORDERED: DEXTROSE 5%-WATER - 50 ML IVPB ONE ×3 (01:16→17:14)
[2018-03-27] MEDS: ACETAMINOPHEN 650 MG/20.3 ML ORAL SOLUTION (CUPS) PO PRN (02:15)
[2018-03-27] MEDS: PIPERACILLIN/TAZOB 3.375 GM 3.375 GM in DEXTROSE 5%-WATER - 50 ML IVPB SCH ×3 (02:15→17:30)
[2018-03-27] MEDS: HEPARIN NA (PORCINE) 5,000 UNITS/ML 1ML VIAL SQ SCH ×3 (05:20→22:18)
[2018-03-27] MEDS: clonazePAM 0.5 MG TABLET GT SCH ×3 (05:20→22:18)
--- NOTE | 2018-03-27 07:03 | PN ---
Physical Exam: SUBJECTIVE: Patient seen and examined OBJECTIVE: Vital Signs Period Temp Pulse Resp BP Sys/Linares Pulse Ox Last 24 Hr 97.9 F-100.6 F 54-113 20-20 90-120/40-84 96-99 GENERAL: The patient is MR, NAD, awake with eyes open,. HEAD: Normal with no signs of gross trauma. EYED: PERRL ENT: Ears normal, nares patent, oropharynx clear without exudates, moist mucous membranes. LUNGS: Decreased coarse breath sounds, improved respirations on left, right sided crackles, mild wheezing, on Venturi mask (FiO2: 50%, 12L ) HEART: tachycardic, limited sounds irregular rate and rhythm, ABDOMEN: Soft, nontender, nondistended, hypoactive bowel sounds, no guarding, no rebound EXTREMITIES: 2+ dorsal pedal pulses, warm, well-perfused, no edema, decorticate posturing, no calf tenderness, rocker bottom feet, stage 1 ulcers on left 5th digit, and right heel. SKIN: Warm, dry, normal turgor Laboratory Results - last 24 hr 03/26/18 03/26/18 03/26/18 06:25 06:25 09:00 WBC Cancelled 13.4 H Corrected WBC (auto) Cancelled RBC Cancelled 3.37 L Hgb Cancelled 11.1 L Hct Cancelled 34.1 L MCV Cancelled 101.2 H MCH Cancelled 32.8 MCHC Cancelled 32.5 RDW Cancelled 16.3 H Plt Count Cancelled 139 D MPV Cancelled 9.3 Absolute Neuts (auto) 8.5 H Neutrophils % 63.4 D Lymphocytes % 30.0 D Monocytes % 6.4 Eosinophils % 0.0 Basophils % 0.2 Nucleated RBC % 0 Manual Slide Review Cancelled Platelet Comment Cancelled Sodium 137 Potassium 3.5 Chloride 101 Carbon Dioxide 29 Anion Gap 7 L BUN 15 Creatinine 0.8 Creat Clearance w eGFR > 60 Random Glucose 81 Calcium 9.0 Phosphorus 3.2 Magnesium 2.1 Total Bilirubin 0.3 Direct Bilirubin 0.1 AST 36 ALT 54 Alkaline Phosphatase 290 H Total Protein 8.2 Albumin 3.1 L Active Medications Current Medications Acetaminophen (Tylenol Oral Solution -) 650 mg PO Q6H PRN PRN Reason: FEVER Last Admin: 03/27/18 02:15 Dose: 650 mg Acetylcysteine (Mucomyst 20 Oral / Inh Use Only*) 100 mg NEB RQID [facility] Last Admin: 03/26/18 21:43 Dose: 100 mg Albuterol Sulfate (Ventolin 0.083% Nebulizer Soln -) 1 amp NEB Q8H PRN PRN Reason: SHORT OF BREATH/WHEEZING Last Admin: 03/24/18 20:45 Dose: 1 amp Albuterol Sulfate (Ventolin 0.083% Nebulizer Soln -) 1 amp NEB RQID [facility] Last Admin: 03/26/18 21:43 Dose: 1 amp Baclofen (Lioresal -) 10 mg GT BID [facility] Last Admin: 03/26/18 21:57 Dose: 10 mg Clobazam (Onfi -) 5 mg GT DAILY [facility] Last Admin: 03/26/18 09:59 Dose: 5 mg Clonazepam (Klonopin -) 1.5 mg GT TID [facility] Last Admin: 03/27/18 05:20 Dose: 1.5 mg Docusate Sodium (Colace Liquid -) 100 mg PO DAILY PRN PRN Reason: CONSTIPATION Heparin Sodium (Porcine) (Heparin -) 5,000 unit SQ TID [facility] Last Admin: 03/27/18 05:20 Dose: 5,000 unit Piperacillin Sod/Tazobactam (Sod 3.375 gm/ Dextrose) 50 mls @ 100 mls/hr IVPB Q8H-IV [facility]; Protocol Last Admin: 03/27/18 02:15 Dose: 100 mls/hr Dextrose/Sodium Chloride (D5-Ns -) 1,000 mls @ 75 mls/hr IV ASDIR [facility] Last Admin: 03/26/18 10:55 Dose: 75 mls/hr Lactobacillus Acidophilus (Bacid -) 1 tab GT HS [facility] Last Admin: 03/26/18 21:56 Dose: 1 tab Lamotrigine (Lamictal -) 200 mg GT BID [facility] Last Admin: 03/26/18 21:56 Dose: 200 mg Methylprednisolone Sodium Succinate (Solu-Medrol -) 30 mg IVPUSH DAILY [facility] Pantoprazole Sodium (Protonix Packets For Oral Suspension -) 40 mg PEG DAILY [facility] Last Admin: 03/26/18 10:00 Dose: 40 mg Phenobarbital (Phenobarbital -) 45 mg GT BID [facility] Last Admin: 03/26/18 21:56 Dose: 45 mg Senna (Senna Oral Solution -) 8.8 mg PO HS [facility] Last Admin: 03/26/18 21:57 Dose: 8.8 mg Home Medications Medication Instructions Recorded Acyclovir 400 mg GT BID 04/25/17 Baclofen 10 mg GT BID 04/25/17 Benzoyl Peroxide 5% Gel - 1 applic TP BID 04/25/17 Budesonide/Formeterol Fumarate 1 inh PO BID 04/25/17 [SYMBICORT 160/4.5mcg -] Clobazam [Onfi -] 5 mg GT DAILY 04/25/17 Clonazepam 1.5 mg GT TID 04/25/17 Fluticasone Propionate [Flovent 50 mcg IH DAILY 04/25/17 Diskus] Fructooligosaccharides/Polydex 15 gm GT DAILY 04/25/17 [Fiber-Stat 15 gm/30 ml Liquid] Ipratropium/Albuterol Sulfate 3 ml IH Q6H 04/25/17 [Iprat-Albut 0.5-3(2.5) mg/3 ml] Lactobacillus Acidophilus 1 each GT HS 04/25/17 [Acidophilus] Lamotrigine 200 mg GT BID 04/25/17 Magnesium Hydrox 2400MG/30Ml [Milk 20 ml GT BID 04/25/17 of Magnesia -] Multivitamin [Poly-Vitamin] 1 each GT DAILY 04/25/17 Phenobarbital 48.6 mg GT BID 04/25/17 Ranitidine [Zantac -] 75 mg GT BID 04/25/17 ASSESSMENT/PLAN: Pt is a 22 y/o M with PMH herpes encephalitis, severe MR, seizures, asthma, report of intubation in the past, chronically on NIPPV who was sent from [place] for hypoxia and hypothermia. Pt admitted for sepsis and respiratory distress. #Pulmonology -Acute on chronic resp failure Pt. chronically uses NIPPV at [place] c/w Venturi mask 50% FiO2, 12L c/w [place] Pulmonology (Dr. Matute) consulted Chest PT decreased Medrol to 30mg IVP -R/o PNA Likely aspiration considering unremarkable UA, chronic use of NIPPV, and recent hypoxia CXR read as having congestive & infiltrative changes, f/u CXR in AM c/w Zosyn ID (Dr. Douglas) consulted BCx: NTD UCx: NTD Vanc/Zosyn, NS, Solumedrol, Duonebs given in ED hypothermia (chronically hypothermic)- on admission #Neurology -Seizure disorder c/w home meds klonopin, lamictal, Phenobarbital #F/E/N -NS @ 75ml/hr -monitor electrolytes replete as needed. -G-tube Promote feeds w/ 70ml free water #PPx -Hep SubQ #Dispo -Tele Visit type - Emergency Visit Emergency Visit: Yes ED Registration Date: 03/19/18 Care time: The patient presented to the Emergency Department on the above date and was hospitalized for further evaluation of their emergent condition. - New Patient This patient is new to me today: No - Critical Care Critical Care patient: No - Discharge Referral Referred to [facility] No
[2018-03-27] MEDS: ALBUTEROL SO4 0.083% IH SOL 2.5 MG/3 ML VIAL.NEB. NEB SCH ×4 (07:30→20:26)
[2018-03-27] MEDS: ACETYLCYSTEINE 20% 200MG/ML 4 ML VIAL *FOR ORAL / INH USE ONLY NEB SCH ×4 (07:30→20:25)
[2018-03-27 07:39] LABS: BASO % 0.1 % (0-2.0); HEMATOCRIT 31.9 % (35.4-49); HEMOGLOBIN 10.2 GM/dL (11.7-16.9); LYMPH % 27.2 % (8-40); MCH 32.9 pg (25.7-33.7); MCHC 32.1 g/dl (32.0-35.9); MEAN CELL VOLUME 102.6 fl (80-96); MEAN PLT VOLUME 9.6 fl (7.5-11.1); MONO % 6.5 % (3.8-10.2); NEUT % 66.2 % (42.8-82.8); PLATELET COUNT 162 K/MM3 (134-434); RDW 16.3 % (11.9-15.9)
[2018-03-27 08:09] LABS: ANION GAP 11 MMOL/L (8-16); BLOOD UREA NITROGEN 10 mg/dL (7-18); CALCIUM 8.6 mg/dL (8.5-10.1); CHLORIDE 104 mmol/L (98-107); CO2 26 mmol/L (21-32); CREATININE 0.7 mg/dL (0.55-1.3); GLUCOSE,RANDOM 94 mg/dL (74-106); MAGNESIUM 2.1 mg/dL (1.8-2.4); PHOSPHOROUS 3.2 mg/dL (2.5-4.9); POTASSIUM 3.8 mmol/L (3.5-5.1); SODIUM 141 mmol/L (136-145)
--- NOTE | 2018-03-27 08:35 | PN ---
Teaching Attending Note Name of Resident: Juan Miguel Black ATTENDING PHYSICIAN STATEMENT I saw and evaluated the patient. I reviewed the resident's note and discussed the case with the resident. I agree with the resident's findings and plan as documented. SUBJECTIVE: Had fever last night . unable to obtain other history OBJECTIVE: NAD. sleeping CV: RRR Lungs: clear bilaterally ( anterior and sides ) Ext : no edema , muscular atrophy Abd: PEG in , no tenderness, NL BS . ND. ASSESSMENT AND PLAN: 22 y/o young man withh/o herpetic meningioencephalitis, MR, seizures , recurrent aspiration PNA , who presented with hypothermia and was found ot have sepsis and acute resp failure due to aspiration PNA 1- Sepsis. Now withe recurrence of fever 2- Aspiration PNA 3- Acute hypoxic resp failure 4-tachycardia and hypotension 5- Asthma exacerbation 6- H/o seizures 7- Transaminitis: improved plan : - w/u for fever while on Abx.could be due to atelectasis , DVT , or UTI. repeat cxray, UA, and US of LE. - cont zosyn day 8 . - cont medrol - cont IVF. tachycardia and hypotension improved - venti mask as needed - cont seizure meds - Lfts improved, isolated ALK phos elevation is likely due to immobilization - Mucomyst - PPI - DVT Px - PEG studies with contrast in stomach, and no extravasation . cont TF HLOC
--- NOTE | 2018-03-27 09:07 | PN ---
Physical Exam: SUBJECTIVE: Patient seen and examined. Pt. spiked fever to 100.8 (rectal) overnight per nurse. Pt. given Tylenol. BCx. and UCx. were ordered. BCx. were taken, awaiting straight catherization for urine Cx. Pt. spiked temp to 100.6 overnight. Tylenol was given again. No additional Cx. were taken at that time. Pt. placed on BiPaP over night because " Pt. usually goes on Bipap at night." Per nursing there were no desaturation events overnight. Yesterday "G-tube fell out," Tube feeds were held. G tube was placed back in, secured by inflating balloon with 5 ml air, G-Tube series was performed with contrast, X-ray completed and verified its patency and placement without extravasion. Tube feeds were restarted. This morning G-tube fell out again. G-tube fell out after a coughing fit, likely induced by increased abdominal pressure. Tube feeds were stopped. G-tube was reinserted with 4cc of sterile saline into the balloon cuff. G-tube was flushed. GI series X-ray w contrast confirmed placement of the G-Tube. If G-tube pops out again consult to GI would be advised. OBJECTIVE: Vital Signs Period Temp Pulse Resp BP Sys/Linares Pulse Ox Last 24 Hr 97.9 F-100.6 F 54-113 20-20 101-120/40-84 96-99 GENERAL: The patient is MR, NAD, awake with eyes open,. HEAD: Normal with no signs of gross trauma. EYED: PERRL ENT: Ears normal, nares patent, oropharynx clear without exudates, moist mucous membranes. LUNGS: Right: CTA, good Breath sounds, Left: coarse breath sounds but improving air flow compared to yesterday, on BiPAP (FiO2: 50%, 12L ) HEART: RRR, S1 and S2 present ABDOMEN: Soft, nontender, nondistended, hypoactive bowel sounds, no guarding, no rebound, G-tube in place. EXTREMITIES: 2+ dorsal pedal pulses, warm, well-perfused, no edema, decorticate posturing, no calf tenderness, rocker bottom feet, stage 1 ulcers on left 5th digit, and right heel. SKIN: Warm, dry, normal turgor Laboratory Results - last 24 hr 11/03/27/18 03/27/18 09:00 06:10 06:10 WBC 13.4 H 13.0 H RBC 3.37 L 3.10 L Hgb 11.1 L 10.2 L Hct 34.1 L 31.9 L MCV 101.2 H 102.6 H MCH 32.8 32.9 MCHC 32.5 32.1 RDW 16.3 H 16.3 H Plt Count 139 D 162 MPV 9.3 9.6 Absolute Neuts (auto) 8.5 H 8.6 H Neutrophils % 63.4 D 66.2 Lymphocytes % 30.0 D 27.2 Monocytes % 6.4 6.5 Eosinophils % 0.0 0.0 Basophils % 0.2 0.1 Nucleated RBC % 0 0 Sodium 141 Potassium 3.8 Chloride 104 Carbon Dioxide 26 Anion Gap 11 BUN 10 Creatinine 0.7 Creat Clearance w eGFR > 60 Random Glucose 94 Calcium 8.6 Phosphorus 3.2 Magnesium 2.1 Active Medications Current Medications Acetaminophen (Tylenol Oral Solution -) 650 mg PO Q6H PRN PRN Reason: FEVER Last Admin: 03/27/18 02:15 Dose: 650 mg Acetylcysteine (Mucomyst 20 Oral / Inh Use Only*) 100 mg NEB RQID [facility] Last Admin: 03/26/18 21:43 Dose: 100 mg Albuterol Sulfate (Ventolin 0.083% Nebulizer Soln -) 1 amp NEB Q8H PRN PRN Reason: SHORT OF BREATH/WHEEZING Last Admin: 03/24/18 20:45 Dose: 1 amp Albuterol Sulfate (Ventolin 0.083% Nebulizer Soln -) 1 amp NEB RQID [facility] Last Admin: 03/26/18 21:43 Dose: 1 amp Baclofen (Lioresal -) 10 mg GT BID [facility] Last Admin: 03/26/18 21:57 Dose: 10 mg Clobazam (Onfi -) 5 mg GT DAILY [facility] Last Admin: 03/26/18 09:59 Dose: 5 mg Clonazepam (Klonopin -) 1.5 mg GT TID [facility] Last Admin: 03/27/18 05:20 Dose: 1.5 mg Docusate Sodium (Colace Liquid -) 100 mg PO DAILY PRN PRN Reason: CONSTIPATION Heparin Sodium (Porcine) (Heparin -) 5,000 unit SQ TID [facility] Last Admin: 03/27/18 05:20 Dose: 5,000 unit Piperacillin Sod/Tazobactam (Sod 3.375 gm/ Dextrose) 50 mls @ 100 mls/hr IVPB Q8H-IV [facility]; Protocol Last Admin: 03/27/18 02:15 Dose: 100 mls/hr Dextrose/Sodium Chloride (D5-Ns -) 1,000 mls @ 75 mls/hr IV ASDIR [facility] Last Admin: 03/26/18 10:55 Dose: 75 mls/hr Lactobacillus Acidophilus (Bacid -) 1 tab GT HS [facility] Last Admin: 03/26/18 21:56 Dose: 1 tab Lamotrigine (Lamictal -) 200 mg GT BID [facility] Last Admin: 03/26/18 21:56 Dose: 200 mg Methylprednisolone Sodium Succinate (Solu-Medrol -) 30 mg IVPUSH DAILY [facility] Pantoprazole Sodium (Protonix Packets For Oral Suspension -) 40 mg PEG DAILY [facility] Last Admin: 03/26/18 10:00 Dose: 40 mg Phenobarbital (Phenobarbital -) 45 mg GT BID [facility] Last Admin: 03/26/18 21:56 Dose: 45 mg Senna (Senna Oral Solution -) 8.8 mg PO HS [facility] Last Admin: 03/26/18 21:57 Dose: 8.8 mg Home Medications Medication Instructions Recorded Acyclovir 400 mg GT BID 04/25/17 Baclofen 10 mg GT BID 04/25/17 Benzoyl Peroxide 5% Gel - 1 applic TP BID 04/25/17 Budesonide/Formeterol Fumarate 1 inh PO BID 04/25/17 [SYMBICORT 160/4.5mcg -] Clobazam [Onfi -] 5 mg GT DAILY 04/25/17 Clonazepam 1.5 mg GT TID 04/25/17 Fluticasone Propionate [Flovent 50 mcg IH DAILY 04/25/17 Diskus] Fructooligosaccharides/Polydex 15 gm GT DAILY 04/25/17 [Fiber-Stat 15 gm/30 ml Liquid] Ipratropium/Albuterol Sulfate 3 ml IH Q6H 04/25/17 [Iprat-Albut 0.5-3(2.5) mg/3 ml] Lactobacillus Acidophilus 1 each GT HS 04/25/17 [Acidophilus] Lamotrigine 200 mg GT BID 04/25/17 Magnesium Hydrox 2400MG/30Ml [Milk 20 ml GT BID 04/25/17 of Magnesia -] Multivitamin [Poly-Vitamin] 1 each GT DAILY 04/25/17 Phenobarbital 48.6 mg GT BID 04/25/17 Ranitidine [Zantac -] 75 mg GT BID 04/25/17 ASSESSMENT/PLAN: Pt is a 22 y/o M with PMH herpes encephalitis, severe MR, seizures, asthma, report of intubation in the past, chronically on NIPPV who was sent from [place] for hypoxia and hypothermia. Pt admitted for sepsis and respiratory distress. #Pulmonology -Acute on chronic resp failure Pt. chronically uses NIPPV at [place] as needed. c/w Venturi mask 50% FiO2, 12L [facility] (Dr. Matute) consulted Chest PT Decreased Medrol to 30mg IVP -HCAP Likely aspiration considering unremarkable UA, chronic use of NIPPV, coughing fits and intermittent episodes of hypoxia CXR read as having congestive & infiltrative changes, f/u CXR in AM c/w Zosyn (started on 03/19/18) ID (Dr. Douglas) consulted: will convert to PO Abx. tomorrow BCx: NTD, f/u Rpt. Cx. UCx: NTD, f/u Rpt. Cx. hypothermia (chronically hypothermic)- on admission, now normothermic #Neurology -Seizure disorder(Lennoux-Gastaut?) c/w home meds klonopin, lamictal, Phenobarbital, and clobazam #F/E/N -No IVF, maintain free water intake with tube feeds -monitor electrolytes replete as needed. -G-tube Promote feeds w/ 70ml free water #PPx -Hep SubQ #Dispo -Tele Visit type - Emergency Visit Emergency Visit: Yes ED Registration Date: 03/19/18 Care time: The patient presented to the Emergency Department on the above date and was hospitalized for further evaluation of their emergent condition. - New Patient This patient is new to me today: No - Critical Care Critical Care patient: No - Discharge Referral Referred to [facility] No
[2018-03-27] MEDS ORDERED: PT OWN MED DRAWER 7, Y5N ONE ×2 (09:08→22:12)
[2018-03-27] MEDS: PANTOPRAZOLE SOD 40 MG SUSPENSION PACKET PEG SCH (09:20)
[2018-03-27] MEDS: lamoTRIgine 100 MG TABLET (FP) GT SCH ×2 (09:20→22:17)
[2018-03-27] MEDS: methylPREDNISolone NA SUCC 40 MG/1 ML VIAL IVPUSH SCH (09:20)
[2018-03-27] MEDS: PHENobarbital 30 MG TABLET GT SCH ×2 (09:20→22:17)
[2018-03-27] MEDS: cloBAZam 10 MG TABLET GT SCH (09:21)
[2018-03-27] MEDS: BACLOFEN 10 MG TABLET (FP) GT SCH ×2 (09:23→22:17)
--- NOTE | 2018-03-27 10:32 | PN ---
Progress Note, Physician History of Present Illness: PULMONARY AWAKE ,STILL CONGESTED ON VM - Current Medication List Current Medications: Active Medications Acetaminophen (Tylenol Oral Solution -) 650 mg PO Q6H PRN PRN Reason: FEVER Last Admin: 03/27/18 02:15 Dose: 650 mg Acetylcysteine (Mucomyst 20 Oral / Inh Use Only*) 100 mg NEB RQID [facility] Last Admin: 03/27/18 07:30 Dose: 100 mg Albuterol Sulfate (Ventolin 0.083% Nebulizer Soln -) 1 amp NEB Q8H PRN PRN Reason: SHORT OF BREATH/WHEEZING Last Admin: 03/24/18 20:45 Dose: 1 amp Albuterol Sulfate (Ventolin 0.083% Nebulizer Soln -) 1 amp NEB RQID [facility] Last Admin: 03/27/18 07:30 Dose: 1 amp Baclofen (Lioresal -) 10 mg GT BID [facility] Last Admin: 03/27/18 09:23 Dose: 10 mg Clobazam (Onfi -) 5 mg GT DAILY [facility] Last Admin: 03/27/18 09:21 Dose: 5 mg Clonazepam (Klonopin -) 1.5 mg GT TID [facility] Last Admin: 03/27/18 05:20 Dose: 1.5 mg Docusate Sodium (Colace Liquid -) 100 mg PO DAILY PRN PRN Reason: CONSTIPATION Heparin Sodium (Porcine) (Heparin -) 5,000 unit SQ TID [facility] Last Admin: 03/27/18 05:20 Dose: 5,000 unit Piperacillin Sod/Tazobactam (Sod 3.375 gm/ Dextrose) 50 mls @ 100 mls/hr IVPB Q8H-IV [facility]; Protocol Last Admin: 03/27/18 09:20 Dose: 100 mls/hr Dextrose/Sodium Chloride (D5-Ns -) 1,000 mls @ 75 mls/hr IV ASDIR [facility] Last Admin: 03/26/18 10:55 Dose: 75 mls/hr Lactobacillus Acidophilus (Bacid -) 1 tab GT HS [facility] Last Admin: 03/26/18 21:56 Dose: 1 tab Lamotrigine (Lamictal -) 200 mg GT BID [facility] Last Admin: 03/27/18 09:20 Dose: 200 mg Methylprednisolone Sodium Succinate (Solu-Medrol -) 30 mg IVPUSH DAILY [facility] Last Admin: 03/27/18 09:20 Dose: 30 mg Pantoprazole Sodium (Protonix Packets For Oral Suspension -) 40 mg PEG DAILY [facility] Last Admin: 03/27/18 09:20 Dose: 40 mg Phenobarbital (Phenobarbital -) 45 mg GT BID [facility] Last Admin: 03/27/18 09:20 Dose: 45 mg Senna (Senna Oral Solution -) 8.8 mg PO HS [facility] Last Admin: 03/26/18 21:57 Dose: 8.8 mg - Objective Vital Signs: Vital Signs Temperature 97.9 F 03/27/18 05:39 Pulse Rate 54 L 03/27/18 05:39 Respiratory Rate 20 03/27/18 05:39 Blood Pressure 102/55 L 03/27/18 05:39 O2 Sat by Pulse Oximetry (%) 99 03/27/18 07:30 Constitutional: Yes: Calm, Thin Eyes: Yes: WNL HENT: Yes: WNL Neck: Yes: WNL Cardiovascular: Yes: Regular Rate and Rhythm, S1, S2 Respiratory: Yes: Rhonchi (SCATTERED [place] RHONCHI) Gastrointestinal: Yes: Normal Bowel Sounds, Soft Extremities: Yes: Other (CONTRACTED) Edema: No Labs: CBC, BMP 03/27/18 06:10 03/27/18 06:10 INR, PTT INR 1.07 (0.83-1.09) 03/19/18 07:36 Problem List - Problems (1) Pneumonia Code(s): J18.9 - PNEUMONIA, UNSPECIFIED ORGANISM (2) Asthma Code(s): J45.909 - UNSPECIFIED ASTHMA, UNCOMPLICATED (3) Epilepsy Code(s): G40.909 - EPILEPSY, UNSP, NOT INTRACTABLE, WITHOUT STATUS EPILEPTICUS (4) Profound mental retardation Code(s): F73 - PROFOUND INTELLECTUAL DISABILITIES (5) Seizure Code(s): R56.9 - UNSPECIFIED CONVULSIONS (6) Acute and chronic respiratory failure with hypoxia Code(s): J96.21 - ACUTE AND CHRONIC RESPIRATORY FAILURE WITH HYPOXIA (7) Hypotension Code(s): I95.9 - HYPOTENSION, UNSPECIFIED (8) Transaminitis Code(s): R74.0 - NONSPEC ELEV OF LEVELS OF TRANSAMNS & LACTIC ACID DEHYDRGNSE (9) Pneumonia Code(s): J18.9 - PNEUMONIA, UNSPECIFIED ORGANISM Qualifiers: Pneumonia type: due to unspecified organism Assessment/Plan ASSESSMENT/PLAN: Acute on Chronic Respiratory Failure improving R/O PNA Severe MR Cerebral palsy Herpetic meningoencephalitis (?) Asthma Increased LFTs Left lung atelectasis improved NIPPV as needed, O2 ABX coverage per ID Mucomyst Chest pt Aspiration precautions Medrol VTE prophylaxis BD TX DR VILLALTA
[2018-03-27] MEDS: DEXTROSE 5%-NORMAL SALINE 1,000 ML IV SCH ×2 (13:28→22:19)
--- NOTE | 2018-03-27 14:19 | PN ---
Progress Note, Physician History of Present Illness: more awake and alert congested - Current Medication List Current Medications: Active Medications Acetaminophen (Tylenol Oral Solution -) 650 mg PO Q6H PRN PRN Reason: FEVER Last Admin: 03/27/18 02:15 Dose: 650 mg Acetylcysteine (Mucomyst 20 Oral / Inh Use Only*) 100 mg NEB RQID [facility] Last Admin: 03/27/18 11:05 Dose: Not Given Albuterol Sulfate (Ventolin 0.083% Nebulizer Soln -) 1 amp NEB Q8H PRN PRN Reason: SHORT OF BREATH/WHEEZING Last Admin: 03/24/18 20:45 Dose: 1 amp Albuterol Sulfate (Ventolin 0.083% Nebulizer Soln -) 1 amp NEB RQID [facility] Last Admin: 03/27/18 11:05 Dose: Not Given Baclofen (Lioresal -) 10 mg GT BID [facility] Last Admin: 03/27/18 09:23 Dose: 10 mg Clobazam (Onfi -) 5 mg GT DAILY [facility] Last Admin: 03/27/18 09:21 Dose: 5 mg Clonazepam (Klonopin -) 1.5 mg GT TID [facility] Last Admin: 03/27/18 13:23 Dose: 1.5 mg Docusate Sodium (Colace Liquid -) 100 mg PO DAILY PRN PRN Reason: CONSTIPATION Heparin Sodium (Porcine) (Heparin -) 5,000 unit SQ TID [facility] Last Admin: 03/27/18 13:23 Dose: 5,000 unit Piperacillin Sod/Tazobactam (Sod 3.375 gm/ Dextrose) 50 mls @ 100 mls/hr IVPB Q8H-IV [facility]; Protocol Last Admin: 03/27/18 09:20 Dose: 100 mls/hr Dextrose/Sodium Chloride (D5-Ns -) 1,000 mls @ 75 mls/hr IV ASDIR [facility] Last Admin: 03/27/18 13:28 Dose: Not Given Lactobacillus Acidophilus (Bacid -) 1 tab GT HS [facility] Last Admin: 03/26/18 21:56 Dose: 1 tab Lamotrigine (Lamictal -) 200 mg GT BID [facility] Last Admin: 03/27/18 09:20 Dose: 200 mg Methylprednisolone Sodium Succinate (Solu-Medrol -) 30 mg IVPUSH DAILY [facility] Last Admin: 03/27/18 09:20 Dose: 30 mg Pantoprazole Sodium (Protonix Packets For Oral Suspension -) 40 mg PEG DAILY [facility] Last Admin: 03/27/18 09:20 Dose: 40 mg Phenobarbital (Phenobarbital -) 45 mg GT BID [facility] Last Admin: 03/27/18 09:20 Dose: 45 mg Senna (Senna Oral Solution -) 8.8 mg PO HS [facility] Last Admin: 03/26/18 21:57 Dose: 8.8 mg - Objective Vital Signs: Vital Signs Temperature 98.0 F 03/27/18 10:00 Pulse Rate 84 03/27/18 10:00 Respiratory Rate 20 03/27/18 10:00 Blood Pressure 115/65 03/27/18 10:00 O2 Sat by Pulse Oximetry (%) 92 L 03/27/18 10:00 Constitutional: Yes: Calm Neck: Yes: Supple Cardiovascular: Yes: Regular Rate and Rhythm Respiratory: Yes: Poor Air Entry, Other (on face mask) Gastrointestinal: Yes: Normal Bowel Sounds, Soft Musculoskeletal: Yes: WNL Extremities: Yes: Other Neurological: Yes: Alert, Other Labs: CBC, BMP 03/27/18 06:10 03/27/18 06:10 INR, PTT INR 1.07 (0.83-1.09) 03/19/18 07:36 Assessment/Plan Acute on Chronic Respiratory Failure R/O PNA Severe MR Cerebral palsy Herpetic meningoencephalitis Aspiration pna Increased LFTs plan continue resp support will change to oral tomorrow if patient stable nutrition rest as per the team
[2018-03-27] MEDS: LACTOBACILLUS ACIDOPHILUS 1 TABLET GT SCH (22:17)
[2018-03-27] MEDS: SENNOSIDES 8.8 MG/5 ML BULK BOTTLE PO SCH (22:18)
[2018-03-27 23:44] LABS: URINE APPEARANCE CLEAR; URINE BILIRUBIN NEGATIVE (<2.0 mg/dL); URINE COLOR LTYELLOW; URINE GLUCOSE (UA) NEGATIVE (NEGATIVE); URINE KETONE NEGATIVE (NEGATIVE); URINE LEUK ESTERASE NEGATIVE (NEGATIVE); URINE NITRITE NEGATIVE (NEGATIVE); URINE PROTEIN NEGATIVE (NEGATIVE); URINE UROBILINOGEN NEGATIVE mg/dL (0.2-1.0)
[2018-03-28] MEDS ORDERED: DEXTROSE 5%-WATER - 50 ML IVPB ONE ×3 (01:08→16:49)
[2018-03-28] MEDS ORDERED: PIPERACILLIN/TAZOBACTAM 3.375 GM VIAL IVPB ONE ×3 (01:08→16:49)
[2018-03-28] MEDS: PIPERACILLIN/TAZOB 3.375 GM 3.375 GM in DEXTROSE 5%-WATER - 50 ML IVPB SCH ×3 (01:36→17:05)
[2018-03-28] MEDS: clonazePAM 0.5 MG TABLET GT SCH ×3 (05:48→13:53)
[2018-03-28] MEDS: HEPARIN NA (PORCINE) 5,000 UNITS/ML 1ML VIAL SQ SCH ×3 (05:48→22:27)
[2018-03-28 07:41] LABS: HEMATOCRIT 30.9 % (35.4-49); HEMOGLOBIN 10.1 GM/dL (11.7-16.9); MCH 33.7 pg (25.7-33.7); MCHC 32.7 g/dl (32.0-35.9); MEAN CELL VOLUME 103.1 fl (80-96); MEAN PLT VOLUME 9.6 fl (7.5-11.1); PLATELET COUNT 197 K/MM3 (134-434); RDW 16.8 % (11.9-15.9)
[2018-03-28] MEDS: ACETYLCYSTEINE 20% 200MG/ML 4 ML VIAL *FOR ORAL / INH USE ONLY NEB SCH ×4 (07:59→20:20)
[2018-03-28] MEDS: ALBUTEROL SO4 0.083% IH SOL 2.5 MG/3 ML VIAL.NEB. NEB SCH ×4 (07:59→20:21)
[2018-03-28 08:52] LABS: ANION GAP 11 MMOL/L (8-16); BLOOD UREA NITROGEN 10 mg/dL (7-18); CALCIUM 8.7 mg/dL (8.5-10.1); CHLORIDE 106 mmol/L (98-107); CO2 23 mmol/L (21-32); CREATININE 0.6 mg/dL (0.55-1.3); GLUCOSE,RANDOM 86 mg/dL (74-106); MAGNESIUM 2.2 mg/dL (1.8-2.4); PHOSPHOROUS 3.7 mg/dL (2.5-4.9); POTASSIUM 3.6 mmol/L (3.5-5.1); SODIUM 140 mmol/L (136-145)
[2018-03-28] MEDS ORDERED: PT OWN MED DRAWER 7, Y5N ONE ×2 (09:21→22:22)
[2018-03-28] MEDS: PANTOPRAZOLE SOD 40 MG SUSPENSION PACKET PEG SCH (09:43)
[2018-03-28] MEDS: lamoTRIgine 100 MG TABLET (FP) GT SCH ×2 (09:43→22:27)
[2018-03-28] MEDS: methylPREDNISolone NA SUCC 40 MG/1 ML VIAL IVPUSH SCH (09:43)
[2018-03-28] MEDS: PHENobarbital 30 MG TABLET GT SCH ×2 (09:44→22:27)
[2018-03-28] MEDS: cloBAZam 10 MG TABLET GT SCH (09:44)
[2018-03-28] MEDS: DEXTROSE 5%-NORMAL SALINE 1,000 ML IV SCH (09:46)
[2018-03-28] MEDS: BACLOFEN 10 MG TABLET (FP) GT SCH ×2 (09:46→22:28)
--- NOTE | 2018-03-28 11:34 | PN ---
Progress Note, Physician History of Present Illness: PULMONARY NO DISTRESS,LESS CONGESTED - Current Medication List Current Medications: Active Medications Acetaminophen (Tylenol Oral Solution -) 650 mg PO Q6H PRN PRN Reason: FEVER Last Admin: 03/27/18 02:15 Dose: 650 mg Acetylcysteine (Mucomyst 20 Oral / Inh Use Only*) 100 mg NEB RQID JORGE Last Admin: 03/28/18 07:59 Dose: 100 mg Albuterol Sulfate (Ventolin 0.083% Nebulizer Soln -) 1 amp NEB Q8H PRN PRN Reason: SHORT OF BREATH/WHEEZING Last Admin: 03/24/18 20:45 Dose: 1 amp Albuterol Sulfate (Ventolin 0.083% Nebulizer Soln -) 1 amp NEB RQID JORGE Last Admin: 03/28/18 07:59 Dose: 1 amp Baclofen (Lioresal -) 10 mg GT BID [facility] Last Admin: 03/28/18 09:46 Dose: 10 mg Clobazam (Onfi -) 5 mg GT DAILY [facility] Last Admin: 03/28/18 09:44 Dose: 5 mg Clonazepam (Klonopin -) 1.5 mg GT TID [facility] Last Admin: 03/28/18 05:48 Dose: 1.5 mg Docusate Sodium (Colace Liquid -) 100 mg PO DAILY PRN PRN Reason: CONSTIPATION Heparin Sodium (Porcine) (Heparin -) 5,000 unit SQ TID [facility] Last Admin: 03/28/18 05:48 Dose: 5,000 unit Piperacillin Sod/Tazobactam (Sod 3.375 gm/ Dextrose) 50 mls @ 100 mls/hr IVPB Q8H-IV JORGE; Protocol Last Admin: 03/28/18 09:45 Dose: 100 mls/hr Dextrose/Sodium Chloride (D5-Ns -) 1,000 mls @ 75 mls/hr IV ASDIR JORGE Last Admin: 03/28/18 09:46 Dose: 75 mls/hr Lactobacillus Acidophilus (Bacid -) 1 tab GT HS [facility] Last Admin: 03/27/18 22:17 Dose: 1 tab Lamotrigine (Lamictal -) 200 mg GT BID [facility] Last Admin: 03/28/18 09:43 Dose: 200 mg Methylprednisolone Sodium Succinate (Solu-Medrol -) 30 mg IVPUSH DAILY [facility] Last Admin: 03/28/18 09:43 Dose: 30 mg Pantoprazole Sodium (Protonix Packets For Oral Suspension -) 40 mg PEG DAILY [facility] Last Admin: 03/28/18 09:43 Dose: 40 mg Phenobarbital (Phenobarbital -) 45 mg GT BID [facility] Last Admin: 03/28/18 09:44 Dose: 45 mg Senna (Senna Oral Solution -) 8.8 mg PO HS [facility] Last Admin: 03/27/18 22:18 Dose: 8.8 mg - Objective Vital Signs: Vital Signs Temperature 97.3 F L 03/28/18 10:00 Pulse Rate 70 03/28/18 10:00 Respiratory Rate 22 H 03/28/18 10:00 Blood Pressure 100/65 03/28/18 10:00 O2 Sat by Pulse Oximetry (%) 98 03/28/18 09:00 Constitutional: Yes: Other (CONTRACTED) Eyes: Yes: Occular Prosthesis HENT: Yes: WNL Neck: Yes: WNL Cardiovascular: Yes: Regular Rate and Rhythm, S1, S2 Respiratory: Yes: Rhonchi (SCATTERED RHONCHI) Gastrointestinal: Yes: Normal Bowel Sounds, Soft Extremities: Yes: Other (CONTRACTED) Edema: No Labs: CBC, BMP 03/28/18 06:00 03/28/18 06:00 INR, PTT INR 1.07 (0.83-1.09) 03/19/18 07:36 Problem List - Problems (1) Pneumonia Code(s): J18.9 - PNEUMONIA, UNSPECIFIED ORGANISM (2) Asthma Code(s): J45.909 - UNSPECIFIED ASTHMA, UNCOMPLICATED (3) Epilepsy Code(s): G40.909 - EPILEPSY, UNSP, NOT INTRACTABLE, WITHOUT STATUS EPILEPTICUS (4) Profound mental retardation Code(s): F73 - PROFOUND INTELLECTUAL DISABILITIES (5) Seizure Code(s): R56.9 - UNSPECIFIED CONVULSIONS (6) Acute and chronic respiratory failure with hypoxia Code(s): J96.21 - ACUTE AND CHRONIC RESPIRATORY FAILURE WITH HYPOXIA (7) Hypotension Code(s): I95.9 - HYPOTENSION, UNSPECIFIED (8) Transaminitis Code(s): R74.0 - NONSPEC ELEV OF LEVELS OF TRANSAMNS & LACTIC ACID DEHYDRGNSE (9) Pneumonia Code(s): J18.9 - PNEUMONIA, UNSPECIFIED ORGANISM Qualifiers: Pneumonia type: due to unspecified organism Assessment/Plan ASSESSMENT/PLAN: Acute on Chronic Respiratory Failure improving R/O PNA Severe MR Cerebral palsy Herpetic meningoencephalitis (?) Asthma Increased LFTs Left lung atelectasis improved NIPPV as needed, O2 ABX coverage per ID Mucomyst Chest pt Aspiration precautions Medrol VTE prophylaxis BD TX DR VILLALTA
--- NOTE | 2018-03-28 13:42 | PN ---
Progress Note, Physician - Current Medication List Current Medications: Active Medications Acetaminophen (Tylenol Oral Solution -) 650 mg PO Q6H PRN PRN Reason: FEVER Last Admin: 03/27/18 02:15 Dose: 650 mg Acetylcysteine (Mucomyst 20 Oral / Inh Use Only*) 100 mg NEB RQID JORGE Last Admin: 03/28/18 07:59 Dose: 100 mg Albuterol Sulfate (Ventolin 0.083% Nebulizer Soln -) 1 amp NEB Q8H PRN PRN Reason: SHORT OF BREATH/WHEEZING Last Admin: 03/24/18 20:45 Dose: 1 amp Albuterol Sulfate (Ventolin 0.083% Nebulizer Soln -) 1 amp NEB RQID JOR[facility] Last Admin: 03/28/18 07:59 Dose: 1 amp Baclofen (Lioresal -) 10 mg GT BID [facility] Last Admin: 03/28/18 09:46 Dose: 10 mg Clobazam (Onfi -) 5 mg GT DAILY [facility] Last Admin: 03/28/18 09:44 Dose: 5 mg Clonazepam (Klonopin -) 1.5 mg GT TID [facility] Last Admin: 03/28/18 05:48 Dose: 1.5 mg Docusate Sodium (Colace Liquid -) 100 mg PO DAILY PRN PRN Reason: CONSTIPATION Heparin Sodium (Porcine) (Heparin -) 5,000 unit SQ TID [facility] Last Admin: 03/28/18 05:48 Dose: 5,000 unit Piperacillin Sod/Tazobactam (Sod 3.375 gm/ Dextrose) 50 mls @ 100 mls/hr IVPB Q8H-IV JORGE; Protocol Last Admin: 03/28/18 09:45 Dose: 100 mls/hr Dextrose/Sodium Chloride (D5-Ns -) 1,000 mls @ 75 mls/hr IV ASDIR [facility] Last Admin: 03/28/18 09:46 Dose: 75 mls/hr Lactobacillus Acidophilus (Bacid -) 1 tab GT HS [facility] Last Admin: 03/27/18 22:17 Dose: 1 tab Lamotrigine (Lamictal -) 200 mg GT BID [facility] Last Admin: 03/28/18 09:43 Dose: 200 mg Methylprednisolone Sodium Succinate (Solu-Medrol -) 30 mg IVPUSH DAILY [facility] Last Admin: 03/28/18 09:43 Dose: 30 mg Pantoprazole Sodium (Protonix Packets For Oral Suspension -) 40 mg PEG DAILY [facility] Last Admin: 03/28/18 09:43 Dose: 40 mg Phenobarbital (Phenobarbital -) 45 mg GT BID [facility] Last Admin: 03/28/18 09:44 Dose: 45 mg Senna (Senna Oral Solution -) 8.8 mg PO HS [facility] Last Admin: 03/27/18 22:18 Dose: 8.8 mg - Objective Vital Signs: Vital Signs Temperature 97.3 F L 03/28/18 10:00 Pulse Rate 70 03/28/18 10:00 Respiratory Rate 22 H 03/28/18 10:00 Blood Pressure 100/65 03/28/18 10:00 O2 Sat by Pulse Oximetry (%) 98 03/28/18 09:00 Labs: CBC, BMP 03/28/18 06:00 03/28/18 06:00 INR, PTT INR 1.07 (0.83-1.09) 03/19/18 07:36
--- NOTE | 2018-03-28 14:18 | PN ---
Progress Note (short form) - Note Progress Note: Subjective: no events over night . Objective: Vital Signs: Last Vital Signs Temp Pulse Resp BP Pulse Ox 97.3 F L 70 22 H 100/65 98 03/28/18 10:00 03/28/18 10:00 03/28/18 10:00 03/28/18 10:00 03/28/18 09:00 Laboratory Results - last 24 hr 03/27/18 03/28/18 03/28/18 23:15 06:00 06:00 WBC 9.0 RBC 3.00 L Hgb 10.1 L Hct 30.9 L MCV 103.1 H MCH 33.7 MCHC 32.7 RDW 16.8 H Plt Count 197 D MPV 9.6 Sodium 140 Potassium 3.6 Chloride 106 Carbon Dioxide 23 Anion Gap 11 BUN 10 Creatinine 0.6 Creat Clearance w eGFR > 60 Random Glucose 86 Calcium 8.7 Phosphorus 3.7 Magnesium 2.2 Urine Color Ltyellow Urine Appearance Clear Urine pH 8.0 Ur Specific [place] 1.012 Urine Protein Negative Urine Glucose (UA) Negative Urine Ketones Negative Urine Blood Negative Urine Nitrite Negative Urine Bilirubin Negative Urine Urobilinogen Negative Ur Leukocyte Esterase Negative OBJECTIVE: NAD. awake, cough CV: RRR Lungs: clear bilaterally ( anterior and sides ) Ext : no edema , muscular atrophy Abd: PEG in , no tenderness, NL BS . ND. ASSESSMENT AND PLAN: 22 y/o young man with h/o herpetic meningioencephalitis, MR, seizures , recurrent aspiration PNA , who presented with hypothermia and was found ot have sepsis and acute resp failure due to aspiration PNA 1- Sepsis. fever resolved 2- Aspiration PNA 3- Acute hypoxic resp failure 4- tachycardia and hypotension: resolved 5- Asthma exacerbation 6- H/o seizures 7- Transaminitis: improved plan : - zosyn day 9. will probably switch to po abx soon - cont medrol . hopefully can do prednisone tomorrow - cont IVF. tachycardia and hypotension resolved - venti mask as needed. BIPAP as needed - cont seizure meds - Lfts improved, isolated ALK phos elevation is likely due to immobilization - Mucomyst - PPI - DVT Px - PEG in place, cont to use ? dc tomorrow Visit type - Emergency Visit Emergency Visit: Yes ED Registration Date: 03/19/18 Care time: The patient presented to the Emergency Department on the above date and was hospitalized for further evaluation of their emergent condition. - New Patient This patient is new to me today: No - Critical Care Critical Care patient: No
[2018-03-28] MEDS: LACTOBACILLUS ACIDOPHILUS 1 TABLET GT SCH (22:27)
[2018-03-28] MEDS: SENNOSIDES 8.8 MG/5 ML BULK BOTTLE PO SCH (22:28)
[2018-03-29] MEDS ORDERED: PIPERACILLIN/TAZOBACTAM 3.375 GM VIAL IVPB ONE ×2 (01:03→09:06)
[2018-03-29] MEDS ORDERED: DEXTROSE 5%-WATER - 50 ML IVPB ONE ×2 (01:03→09:06)
[2018-03-29] MEDS: PIPERACILLIN/TAZOB 3.375 GM 3.375 GM in DEXTROSE 5%-WATER - 50 ML IVPB SCH ×2 (01:11→09:13)
[2018-03-29] MEDS: DEXTROSE 5%-NORMAL SALINE 1,000 ML IV SCH (04:10)
[2018-03-29] MEDS: HEPARIN NA (PORCINE) 5,000 UNITS/ML 1ML VIAL SQ SCH ×2 (05:29→13:46)
[2018-03-29] MEDS: clonazePAM 0.5 MG TABLET GT SCH ×2 (05:29→13:47)
[2018-03-29] MEDS: ACETYLCYSTEINE 20% 200MG/ML 4 ML VIAL *FOR ORAL / INH USE ONLY NEB SCH ×3 (07:09→15:47)
[2018-03-29] MEDS: ALBUTEROL SO4 0.083% IH SOL 2.5 MG/3 ML VIAL.NEB. NEB SCH ×3 (07:09→15:48)
[2018-03-29 08:04] LABS: BASO % 0.4 % (0-2.0); HEMATOCRIT 29.8 % (35.4-49); HEMOGLOBIN 9.7 GM/dL (11.7-16.9); LYMPH % 40.3 % (8-40); MCH 33.4 pg (25.7-33.7); MCHC 32.5 g/dl (32.0-35.9); MEAN CELL VOLUME 102.8 fl (80-96); MEAN PLT VOLUME 8.8 fl (7.5-11.1); MONO % 7.6 % (3.8-10.2); NEUT % 51.7 % (42.8-82.8); PLATELET COUNT 235 K/MM3 (134-434); RDW 16.6 % (11.9-15.9); WHITE BLOOD COUNT 10.4 K/mm3 (4.0-10.0)
[2018-03-29] MEDS ORDERED: PT OWN MED DRAWER 7, Y5N ONE (09:06)
[2018-03-29] MEDS: DOCUSATE NA 100 MG/10 ML UNIT-DOSE CUPS PO SCH ×2 (09:12→09:26)
[2018-03-29] MEDS: PANTOPRAZOLE SOD 40 MG SUSPENSION PACKET PEG SCH (09:13)
[2018-03-29] MEDS: lamoTRIgine 100 MG TABLET (FP) GT SCH (09:13)
[2018-03-29] MEDS: methylPREDNISolone NA SUCC 40 MG/1 ML VIAL IVPUSH SCH (09:13)
[2018-03-29] MEDS: PHENobarbital 30 MG TABLET GT SCH (09:24)
[2018-03-29] MEDS: cloBAZam 10 MG TABLET GT SCH (09:26)
[2018-03-29] MEDS: BACLOFEN 10 MG TABLET (FP) GT SCH (09:26)
[2018-03-29] MEDS ORDERED: prednisoLONE SODIUM PHOSPHATE 5 MG/5 ML ORAL SOLN BOTTLE PO SCH (10:00)
[2018-03-29] MEDS ORDERED: predniSONE 5 MG/5 ML ORAL SOLN- UNIT-DOSE CUP PO SCH (10:15)
--- NOTE | 2018-03-29 11:07 | PN ---
Teaching Attending Note Name of Resident: Mandi Garcia ATTENDING PHYSICIAN STATEMENT I saw and evaluated the patient. I reviewed the resident's note and discussed the case with the resident. I agree with the resident's findings and plan as documented. SUBJECTIVE: No events over night per RN OBJECTIVE: NAD. awake, cough CV: RRR Lungs: clear bilaterally anteriorly Ext : no edema, muscular atrophy Abd: PEG in , no tenderness, NL BS . ND. ASSESSMENT AND PLAN: 22 y/o young man with h/o herpetic meningioencephalitis, MR, seizures , recurrent aspiration PNA , who presented with hypothermia and was found ot have sepsis and acute resp failure due to aspiration PNA 1- Sepsis. fever resolved 2- Aspiration PNA 3- Acute hypoxic resp failure 4- tachycardia and hypotension: resolved 5- Asthma exacerbation 6- H/o seizures 7- Transaminitis: improved . chronic ALk phos elevation plan : - zosyn day 10. will d/w Dr. Douglas if Abx could be stopped - switch to prednisone and continue taper - dc IVF - venti mask as needed. BIPAP as needed . this is his base line at [place] - cont seizure meds - Lfts improved, isolated ALK phos elevation is likely due to immobilization - Mucomyst - PPI while on steroids - DVT Px if Abx could be switched to po , then can return to [place]
--- NOTE | 2018-03-29 11:47 | PN ---
Progress Note, Physician History of Present Illness: patient looks much better still a bit congested back to base line - Current Medication List Current Medications: Active Medications Acetaminophen (Tylenol Oral Solution -) 650 mg PO Q6H PRN PRN Reason: FEVER Last Admin: 03/27/18 02:15 Dose: 650 mg Acetylcysteine (Mucomyst 20 Oral / Inh Use Only*) 100 mg NEB RQID JORGE Last Admin: 03/29/18 07:09 Dose: 100 mg Albuterol Sulfate (Ventolin 0.083% Nebulizer Soln -) 1 amp NEB Q8H PRN PRN Reason: SHORT OF BREATH/WHEEZING Last Admin: 03/24/18 20:45 Dose: 1 amp Albuterol Sulfate (Ventolin 0.083% Nebulizer Soln -) 1 amp NEB RQID [facility] Last Admin: 03/29/18 07:09 Dose: 1 amp Baclofen (Lioresal -) 10 mg GT BID [facility] Last Admin: 03/29/18 09:26 Dose: 10 mg Clobazam (Onfi -) 5 mg GT DAILY [facility] Last Admin: 03/29/18 09:26 Dose: 5 mg Clonazepam (Klonopin -) 1.5 mg GT TID [facility] Last Admin: 03/29/18 05:29 Dose: 1.5 mg Docusate Sodium (Colace Liquid -) 100 mg PO BID [facility] Last Admin: 03/29/18 09:26 Dose: 100 mg Heparin Sodium (Porcine) (Heparin -) 5,000 unit SQ TID [facility] Last Admin: 03/29/18 05:29 Dose: 5,000 unit Piperacillin Sod/Tazobactam (Sod 3.375 gm/ Dextrose) 50 mls @ 100 mls/hr IVPB Q8H-IV JORGE; Protocol Last Admin: 03/29/18 09:13 Dose: 100 mls/hr Lactobacillus Acidophilus (Bacid -) 1 tab GT HS [facility] Last Admin: 03/28/18 22:27 Dose: 1 tab Lamotrigine (Lamictal -) 200 mg GT BID [facility] Last Admin: 03/29/18 09:13 Dose: 200 mg Pantoprazole Sodium (Protonix Packets For Oral Suspension -) 40 mg PEG DAILY [facility] Last Admin: 03/29/18 09:13 Dose: 40 mg Phenobarbital (Phenobarbital -) 45 mg GT BID [facility] Last Admin: 03/29/18 09:24 Dose: 45 mg Prednisone (Deltasone -) 30 mg PO DAILY [facility] Last Admin: 03/29/18 10:22 Dose: Not Given Senna (Senna Oral Solution -) 8.8 mg PO HS [facility] Last Admin: 03/28/18 22:28 Dose: 8.8 mg - Objective Vital Signs: Vital Signs Temperature 97.9 F 03/29/18 05:30 Pulse Rate 53 L 03/29/18 05:30 Respiratory Rate 20 03/29/18 10:00 Blood Pressure 108/50 L 03/29/18 05:30 O2 Sat by Pulse Oximetry (%) 94 L 03/29/18 10:00 Constitutional: Yes: No Distress, Calm Cardiovascular: Yes: Regular Rate and Rhythm Respiratory: Yes: Regular, Poor Air Entry (bases) Musculoskeletal: Yes: WNL Extremities: Yes: Other (contracted) Neurological: Yes: Alert, Other Psychiatric: Yes: Alert Labs: CBC, BMP 03/29/18 07:54 03/28/18 06:00 INR, PTT INR 1.07 (0.83-1.09) 03/19/18 07:36 Assessment/Plan Acute on Chronic Respiratory Failure R/O PNA Severe MR Cerebral palsy Herpetic meningoencephalitis Aspiration pna Increased LFTs patient doing very well awake smiling plan i think we can stop abx and patient can go back aspiration precautions
--- NOTE | 2018-03-29 12:15 | PN ---
Progress Note (short form) - Note Progress Note: PULMONARY Pt nonverbal. No fevers recorded. Vital Signs Period Temp Pulse Resp BP Sys/Linares Pulse Ox Last 24 Hr 97.3 F-97.9 F 48-86 18-20 108-125/45-69 92-99 Gen: NAD at rest Heart: RRR Lung: decreased breath sounds at the bases Abd: soft, nontender Ext: contracted CBC, BMP 03/29/18 07:54 03/28/18 06:00 Active Medications Acetaminophen (Tylenol Oral Solution -) 650 mg PO Q6H PRN PRN Reason: FEVER Last Admin: 03/27/18 02:15 Dose: 650 mg Acetylcysteine (Mucomyst 20 Oral / Inh Use Only*) 100 mg NEB RQID JORGE Last Admin: 03/29/18 11:53 Dose: 100 mg Albuterol Sulfate (Ventolin 0.083% Nebulizer Soln -) 1 amp NEB Q8H PRN PRN Reason: SHORT OF BREATH/WHEEZING Last Admin: 03/24/18 20:45 Dose: 1 amp Albuterol Sulfate (Ventolin 0.083% Nebulizer Soln -) 1 amp NEB RQID JORGE Last Admin: 03/29/18 11:52 Dose: 1 amp Baclofen (Lioresal -) 10 mg GT BID [facility] Last Admin: 03/29/18 09:26 Dose: 10 mg Clobazam (Onfi -) 5 mg GT DAILY [facility] Last Admin: 03/29/18 09:26 Dose: 5 mg Clonazepam (Klonopin -) 1.5 mg GT TID [facility] Last Admin: 03/29/18 05:29 Dose: 1.5 mg Docusate Sodium (Colace Liquid -) 100 mg PO BID [facility] Last Admin: 03/29/18 09:26 Dose: 100 mg Heparin Sodium (Porcine) (Heparin -) 5,000 unit SQ TID [facility] Last Admin: 03/29/18 05:29 Dose: 5,000 unit Piperacillin Sod/Tazobactam (Sod 3.375 gm/ Dextrose) 50 mls @ 100 mls/hr IVPB Q8H-IV JORGE; Protocol Last Admin: 03/29/18 09:13 Dose: 100 mls/hr Lactobacillus Acidophilus (Bacid -) 1 tab GT HS [facility] Last Admin: 03/28/18 22:27 Dose: 1 tab Lamotrigine (Lamictal -) 200 mg GT BID [facility] Last Admin: 03/29/18 09:13 Dose: 200 mg Pantoprazole Sodium (Protonix Packets For Oral Suspension -) 40 mg PEG DAILY [facility] Last Admin: 03/29/18 09:13 Dose: 40 mg Phenobarbital (Phenobarbital -) 45 mg GT BID [facility] Last Admin: 03/29/18 09:24 Dose: 45 mg Prednisone (Deltasone -) 30 mg PO DAILY [facility] Last Admin: 03/29/18 10:22 Dose: Not Given Senna (Senna Oral Solution -) 8.8 mg PO HS [facility] Last Admin: 03/28/18 22:28 Dose: 8.8 mg A/P Acute on Chronic Hypoxic Respiratory Failure Pneumonia Atelectasis Severe Mental Retardation Functional Quadriplegia Cerebral Palsy - continue antibiotics - aspiration precautions - O2 to keep SpO2>90% - prednisone taper - inhaled bronchodilators - DVT prophylaxis
--- NOTE | 2018-03-29 13:32 | DS ---
Physical Exam: SUBJECTIVE: Patient seen and examined. No acute events overnight. No fevers. Pt. passing gas, Pt. had large BM in the morning. OBJECTIVE: Vital Signs Period Temp Pulse Resp BP Sys/Linares Pulse Ox Last 24 Hr 97.3 F-97.9 F 48-58 18-20 108-125/45-61 94-99 PHYSICAL EXAM GENERAL: The patient is MR, NAD, awake with eyes open,. HEAD: Normal with no signs of gross trauma. EYES: PERRL ENT: Ears normal, nares patent, oropharynx clear without exudates, moist mucous membranes. LUNGS: Right: CTA, good Breath sounds, Left: coarse breath sounds but improving air flow compared to yesterday, on Venturi-mask (FiO2: 50%, 12L ) HEART: RRR, S1 and S2 present ABDOMEN: Soft, nontender, nondistended, hypoactive bowel sounds, no guarding, no rebound, G-tube in place. EXTREMITIES: 2+ dorsal pedal pulses, warm, well-perfused, no edema, decorticate posturing, no calf tenderness, rocker bottom feet, stage 1 ulcers on left 5th digit, and right heel. SKIN: Warm, dry, normal turgor LABS Laboratory Results - last 24 hr 03/29/18 07:54 WBC 10.4 H RBC 2.90 L Hgb 9.7 L Hct 29.8 L MCV 102.8 H MCH 33.4 MCHC 32.5 RDW 16.6 H Plt Count 235 MPV 8.8 Absolute Neuts (auto) 5.4 Neutrophils % 51.7 D Lymphocytes % 40.3 H D Monocytes % 7.6 Eosinophils % 0.0 Basophils % 0.4 D Nucleated RBC % 0 HOSPITAL COURSE: Date of Admission:03/19/18 Date of Discharge: 03/29/18 Pt. admitted for hypothermia and hypoxia 2/2 aspiration pneumonia with pneumonitis. CXR showed congestive and infiltrative changes. Pt. given IV antibiotics to cover Gram - and anaerobes. Pt. given Duonebs and albuterol nebulizer to improve air flow. Pt. given supplemental oxygen including NIPPV ( which Pt. uses at [facility]) to maintain saturation above 90%. Pt.'s chronic disorders managed with home doses of medications. During hospital stay Pt.'s G-tube "popped out" twice due to coughing. tube was reinserted and placement was confirmed with GI series x-ray. Pt. started on steroid course and discharged on prednisone taper as detailed below. Pt. completed antibiotic course in the hospital. Pt. was advised to start Mucomyst and to have frequent repositioning as detailed below. Hospital course discussed and agreed upon with hospital staff and [place] staff. Minutes to complete discharge: 34 Discharge Summary Reason For Visit: PNEUMONIA Current Active Problems Aspiration pneumonia (Acute) Sepsis (Acute) Asthma (Chronic) Epilepsy (Chronic) PEG (percutaneous endoscopic gastrostomy) status (Chronic) Profound mental retardation (Chronic) Seizure (Chronic) Condition: Improved - Instructions Diet, Activity, Other Instructions: You presented to the hospital due to low body temperature and infection in your lung due to aspiration You have been treated with antibiotics and you will be send back to [facility] with antibiotics Please keep the head of bed elevated to avoid aspiration Please change position every 2 hours to prevent breaking in the skin Please take your medication as prescribed , please resume all your meds as before discharged. You will be taking prednisone on the following schedule 30 mg PEG daily for 2 days starting tomorrow 03/30....03/31 then 20 mg PEG daily for 3 days 04/01- - then 10 mg PEG daily for 3 days [id number] You will need Mucomyst to help clear your lungs. If you develop fever , chills, or drop in your temperature ,Sever cough, shortness of breath or your symptoms worsen please return to hospital. continue to use BIPAp and venti mask as needed as per pre-hospital routine Referrals: Jose Luis Valentino Jr [Primary Care Provider] - 1 Week Disposition: [facility] - Home Medications Comprehensive Discharge Medication List: Ambulatory Orders Acyclovir 400 mg GT BID 04/25/17 Baclofen 10 mg GT BID 04/25/17 Benzoyl Peroxide 5% Gel - 1 applic TP BID 04/25/17 Budesonide/Formeterol Fumarate [SYMBICORT 160/4.5mcg -] 1 inh PO BID 04/25/17 Clobazam [Onfi -] 5 mg GT DAILY 04/25/17 Clonazepam 1.5 mg GT TID 04/25/17 Fluticasone Propionate [Flovent Diskus] 50 mcg IH DAILY 04/25/17 Fructooligosaccharides/Polydex [Fiber-Stat 15 gm/30 ml Liquid] 15 gm GT DAILY Ipratropium/Albuterol Sulfate [Iprat-Albut 0.5-3(2.5) mg/3 ml] 3 ml IH Q6H 04/25 Lactobacillus Acidophilus [Acidophilus] 1 each GT HS 04/25/17 Lamotrigine 200 mg GT BID 04/25/17 Magnesium Hydrox 2400MG/30Ml [Milk of Magnesia -] 20 ml GT BID 04/25/17 Multivitamin [Poly-Vitamin] 1 each GT DAILY 04/25/17 Phenobarbital 48.6 mg GT BID 04/25/17 Acetylcysteine Po/INH 20% [Mucomyst 20 Oral / INH Use Only*] 100 mg NEB RQID vial 03/29/18 Ranitidine [Zantac -] 75 mg GT BID #0 tab 03/29/18 predniSONE ORAL SOLUTION [Deltasone Oral Solution 5 MG/5 ML -] See Taper PEG DAILY #60 ml 03/29/18 This patient is new to me today: No Emergency Visit: Yes ED Registration Date: 03/19/18 Care time: The patient presented to the Emergency Department on the above date and was hospitalized for further evaluation of their emergent condition. Critical Care patient: No - Discharge Referral Referred to [facility] No
[2018-03-29 14:39] VITALS: BP 105/44; PULSE 82; TEMP 98.3
== END 2018-03-29 18:23 | DRG 720 ==
LOC: JER 06:59 → JERBED 09:45 → JICU 16:58 → J4W 03-21 15:36 → J4S 03-22 13:38
PROVIDERS: ADMIT Internal Medicine; ATTEND Internal Medicine
PROC: 5A09557 Assistance with Respiratory Ventilation, Greater than 96 Consecutive Hours, Continuous Positive Airway Pressure (ICD-10-PCS; principal; 2018-03-19)
DX: A41.9 Sepsis, unspecified organism (principal); J69.0 Pneumonitis due to inhalation of food and vomit; J96.21 Acute and chronic respiratory failure with hypoxia; R53.2 Functional quadriplegia; B00.4 Herpesviral encephalitis; J45.901 Unspecified asthma with (acute) exacerbation; D69.6 Thrombocytopenia, unspecified; F72 Severe intellectual disabilities; Z93.1 Gastrostomy status; G92 Toxic encephalopathy; R74.0 Nonspecific elevation of levels of transaminase and lactic acid dehydrogenase [LDH]; R68.0 Hypothermia, not associated with low environmental temperature; G40.909 Epilepsy, unspecified, not intractable, without status epilepticus; G80.9 Cerebral palsy, unspecified; J98.11 Atelectasis
CPT/HCPCS: 36415; 36600; 71045-TC-FY; 74018-TC-FY; 80048; 80053; 80076; 81003; 82248; 82803; 82962; 83605; 83735; 84100; 84436; 84439; 84443; 84484; 85025; 85027; 85610; 85730; 87040; 87081; 87086; 87420; 87804; 93005; 93010; 93970-TC; 94640; 94660; 99285-25; J0475; J1644; J7030

== ENCOUNTER 2018-05-22 23:50 | Inpatient (IN) | payer OTHER ==
[2018-05-23 00:47] LABS: BASO % 0.2 % (0-2.0); EOS % 0.4 % (0-4.5); HEMATOCRIT 42.1 % (35.4-49); HEMOGLOBIN 14.8 GM/dL (11.7-16.9); LYMPH % 12.5 % (8-40); MCH 34.5 pg (25.7-33.7); MCHC 35.1 g/dl (32.0-35.9); MEAN CELL VOLUME 98.2 fl (80-96); MEAN PLT VOLUME 10.1 fl (7.5-11.1); MONO % 6.6 % (3.8-10.2); NEUT % 80.3 % (42.8-82.8); PLATELET COUNT 288 K/MM3 (134-434); RBC 4.29 M/mm3 (4.00-5.60); RDW 15.2 % (11.9-15.9)
[2018-05-23] MEDS ORDERED: ACETAMINOPHEN 1000 MG/100 ML VIAL (NON FORMULARY) IVPB ONE ×2 (00:50→07:29)
[2018-05-23] MEDS ORDERED: SODIUM CHLORIDE 1,000 ML IV STA (00:50)
--- NOTE | 2018-05-23 00:50 | PDOC ---
Attending Attestation - HPI HPI: 05/23/18 01:42 Patient is a 23 year old boy with history of MR, cerebral palsy, herpes meningoencephalitis, on chronic BiPap, aspiration pneumonia in the past, who was sent to the ED from [place] for fever and chest/nasal congestion. Patient is noted to have productive cough with white sputum and was noted to be tachycardic presentation to the ED. Aide denies any change in baseline, nausea, vomiting, diarrhea, change in bowel or urinary habits. - Physicial Exam PE: 05/23/18 01:42 GENERAL: Awake, eyes open, non-verbal, contracted, in no acute distress. Intermittent hurling mucus from mouth and nose. HEAD: No signs of trauma ENT: Auricles normal inspection, hearing grossly normal, nares patent. Moist mucosa LUNGS: Breath sounds equal, No wheezes, and no crackles HEART: Regular rate and rhythm ABDOMEN: Soft, nontender, normoactive bowel sounds. NEUROLOGICAL: Cranial nerves II through XII grossly intact. SKIN: Warm, Dry, normal turgor, no rashes or lesions noted. - Medical Decision Making 05/23/18 01:44 Documentation prepared by Lennie Ashton, acting as medical support specialist for Maria De Jesus Ramos MD. <Lennie Ashton - Last Filed: 05/23/18 01:42> - Resident Resident Name: Db Govea - ED Attending Attestation I have performed the following: I have examined & evaluated the patient, The case was reviewed & discussed with the resident, I agree w/resident's findings & plan, Exceptions are as noted - Medical Decision Making 05/23/18 00:49 EKG - Sinus rhythm rate of 128 bpm, R axis deviation, no st elevation or depression 05/23/18 01:15 Laboratory Tests 03/28/18 03/29/18 05/23/18 06:00 07:54 00:33 WBC 10.4 H 12.0 H Hgb 9.7 L 14.8 Hct 29.8 L 42.1 D Plt Count 235 288 D PT with INR INR Sodium Potassium Chloride Carbon Dioxide BUN 10 Creatinine 0.6 Random Glucose Lactic Acid AST ALT Alkaline Phosphatase Troponin I Total Protein 05/23/18 05/23/18 05/23/18 00:33 00:33 00:33 WBC Hgb Hct Plt Count PT with INR 13.90 H INR 1.18 H Sodium 132 L Potassium 3.7 Chloride 98 Carbon Dioxide 26 BUN 15 Creatinine 0.8 Random Glucose 90 Lactic Acid 2.1 H AST 117 H ALT 127 H Alkaline Phosphatase 536 H Troponin I Total Protein 9.1 H 05/23/18 00:33 WBC Hgb Hct Plt Count PT with INR INR Sodium Potassium Chloride Carbon Dioxide BUN Creatinine Random Glucose Lactic Acid AST ALT Alkaline Phosphatase Troponin I < 0.02 Total Protein 05/23/18 01:26 Trop neg WBC elevated transaminitis noted Pt is poorly responsive Clearly has pulmonary infection No seeming abdominal tenderness to palpation Will do: CT chest CT abd and pelvis Will plan to admit 05/23/18 02:11 Weight not in system NS 1 L ordered when pt arrived to the ER Pt signed out to Dr Leon and Filippo I have requested that this patient's bp be monitored closely Nurse asked for this patient's weight If low after 30cc/kg bolus, will need vasopressors <Maria De Jesus Ramos - Last Filed: 05/26/18 08:48>
[2018-05-23] MEDS ORDERED: PIPERACILLIN/TAZOB 3.375 GM 3.375 GM in DEXTROSE 5%-WATER - 50 ML IVPB ONE (00:51)
[2018-05-23] MEDS ORDERED: VANCOMYCIN 1 GRAM (PRE-DOCKED) 1,000 MG/250 ML BAG IVPB ONE ×2 (00:51→01:10)
--- NOTE | 2018-05-23 00:57 | PDOC ---
History of Present Illness - General Stated Complaint: fever Time Seen by Provider: 05/22/18 23:52 History Source: Care Provider Exam Limitations: Clinical Condition - History of Present Illness Initial Comments: 05/23/18 00:52 Patient is 23M with history of profound mental disability, recurrent pneumonia, herpes meningitis/encephalitis, CP, G tube placement here today with fever. Aide at bedside is unsure of how long this has been going on, but states that a bug has been going through the school. Unknown flu shot. Tachycardia but no hypoxia noted. Large amount of rhinorrhea and cough noted. Past History - Past Medical History Allergies/Adverse Reactions: Allergies Allergy/AdvReac Type Severity Reaction Status Date / Time No Known Allergies Allergy Verified 03/19/18 07:05 Home Medications: Ambulatory Orders Acyclovir 400 mg GT BID 04/25/17 Baclofen 10 mg GT BID 04/25/17 Benzoyl Peroxide 5% Gel - 1 applic TP BID 04/25/17 Budesonide/Formeterol Fumarate [SYMBICORT 160/4.5mcg -] 1 inh PO BID 04/25/17 Clobazam [Onfi -] 5 mg GT DAILY 04/25/17 Clonazepam 1.5 mg GT TID 04/25/17 Fluticasone Propionate [Flovent Diskus] 50 mcg IH DAILY 04/25/17 Fructooligosaccharides/Polydex [Fiber-Stat 15 gm/30 ml Liquid] 15 gm GT DAILY Ipratropium/Albuterol Sulfate [Iprat-Albut 0.5-3(2.5) mg/3 ml] 3 ml IH Q6H 04/25 Lactobacillus Acidophilus [Acidophilus] 1 each GT HS 04/25/17 Lamotrigine 200 mg GT BID 04/25/17 Magnesium Hydrox 2400MG/30Ml [Milk of Magnesia -] 20 ml GT BID 04/25/17 Multivitamin [Poly-Vitamin] 1 each GT DAILY 04/25/17 Phenobarbital 48.6 mg GT BID 04/25/17 Acetylcysteine Po/INH 20% [Mucomyst 20 Oral / INH Use Only*] 100 mg NEB RQID vial 03/29/18 Ranitidine [Zantac -] 75 mg GT BID #0 tab 03/29/18 predniSONE ORAL SOLUTION [Deltasone Oral Solution 5 MG/5 ML -] See Taper PEG DAILY #60 ml 03/29/18 Anemia: No Asthma: Yes Cancer: No Cardiac Disorders: No CVA: No COPD: No CHF: No Dementia: No Diabetes: No GI Disorders: Yes (DYSPHAGIA. CONSTIPATION. GERD.) Disorders: No HTN: No Hypercholesterolemia: No Liver Disease: No Seizures: Yes (EPILEPSY) Thyroid Disease: No - Surgical History Abdominal Surgery: Yes (GT PLACEMENT) Appendectomy: No Cardiac Surgery: No Cholecystectomy: No Lung Surgery: No Neurologic Surgery: No Orthopedic Surgery: Yes (l hip pinning, r hip osteotomy) - Suicide/Smoking/Psychosocial Hx Smoking Status: No Smoking History: Never smoked Have you smoked in the past 12 months: No Number of Cigarettes Smoked Daily: 0 Hx Alcohol Use: No Drug/Substance Use Hx: No Substance Use Type: None Hx Substance Use Treatment: No Review of Systems - Review of Systems Able to Perform ROS?: No (2/2 clinical condition) *Physical Exam - Physical Exam Comments: 05/23/18 00:57 GENERAL: Awake, alert, coughing, rhinorrhea HEAD: No signs of trauma, normocephalic, atraumatic EYES: PERRLA, EOMI, sclera anicteric, conjunctiva clear ENT: Auricles normal inspection, hearing grossly normal, nares patent, oropharynx clear without exudates. Moist mucosa NECK: Normal ROM, supple, no lymphadenopathy, JVD, or masses LUNGS: No distress, coarse breath sounds bilaterally HEART: Tachycardic, normal S1 and S2, no murmurs, rubs or gallops, peripheral pulses normal and equal bilaterally. ABDOMEN: Soft, nontender, normoactive bowel sounds. No guarding, no rebound. No masses EXTREMITIES: Contracted, deformed, well perfused NEUROLOGICAL: Cranial nerves II through XII grossly intact. No focal sensorimotor deficits SKIN: Warm, Dry, normal turgor, no rashes or lesions noted. ED Treatment Course - LABORATORY CBC & Chemistry Diagram: 05/23/18 00:33 05/23/18 00:33 - RADIOLOGY Radiology Studies Ordered: Category Date Time Status CHEST X-RAY PORTABLE* [RAD] Stat Radiology 05/22/18 23:58 Ordered Medical Decision Making - Medical Decision Making 05/23/18 00:57 Patient is 23M with history of multiple pneumonias, mental disability, cp, hepres menigitis/encephalitis here today with fever, tachycardia. Likely viral source, but given patient's history of pneumonias will do septic workup, flu, empirically antibiose. 1L (30cc/kg) given. 05/23/18 01:16 CXR of limited value given patients positioning. Chest CT ordered. CMP shows elevated liver enzymes, with no history or reliable abdominal exam available, will CT abd/pelvis as well. Lactate 2.1. CBC shows neutrophillic shift. *DC/Admit/Observation/Transfer Diagnosis at time of Disposition: Fever - Discharge Dispostion Condition at time of disposition: Stable - Referrals - Patient Instructions - Post Discharge Activity
[2018-05-23 00:58] LABS: INR 1.18 (0.83-1.09); PROTHROMBIN TIME (PATIENT) 13.9 SEC (9.7-13.0)
[2018-05-23 01:01] LABS: ACTIVATED PTT 36.2 SECONDS (25.2-36.5)
[2018-05-23 01:07] LABS: ALBUMIN 3.7 g/dl (3.4-5.0); ALK PHOS 536 U/L (45-117); ANION GAP 8 MMOL/L (8-16); BILIRUBIN,TOTAL 0.2 mg/dL (0.2-1); BLOOD UREA NITROGEN 15 mg/dL (7-18); CALCIUM 9.2 mg/dL (8.5-10.1); CHLORIDE 98 mmol/L (98-107); CO2 26 mmol/L (21-32); CREATININE 0.8 mg/dL (0.55-1.3); GLUCOSE,RANDOM 90 mg/dL (74-106); POTASSIUM 3.7 mmol/L (3.5-5.1); SGOT/AST 117 U/L (15-37); SGPT/ALT 127 U/L (13-61); SODIUM 132 mmol/L (136-145); TOT PROT 9.1 g/dl (6.4-8.2)
[2018-05-23] MEDS ORDERED: ACETAMINOPHEN INJECTION 100 ML IVPB ONE ×2 (01:09→07:59)
[2018-05-23] MEDS ORDERED: PIPERACILLIN/TAZOB 3.375 GM 3.375 GM/50 ML BAG IVPB ONE ×2 (01:10→14:12)
[2018-05-23] MEDS ORDERED: SODIUM CHLORIDE 500 ML IV SCH (02:30)
[2018-05-23] MEDS ORDERED: SODIUM CHLORIDE 1,000 ML IV SCH ×2 (03:12→06:45)
--- NOTE | 2018-05-23 04:15 | PDOC ---
*Physical Exam - Vital Signs Last Vital Signs Temp Pulse Resp BP Pulse Ox 100.8 F H 122 H 20 90/71 93 L 05/23/18 01:29 05/23/18 01:29 05/23/18 01:29 05/23/18 01:29 05/23/18 01:29 ED Treatment Course - LABORATORY CBC & Chemistry Diagram: 05/28/18 16:53 05/28/18 16:54 - ADDITIONAL ORDERS Additional order review: Laboratory Results 05/23/18 05/23/18 05/23/18 00:33 00:33 00:33 PT with INR INR PTT (Actin FS) Sodium 132 L Potassium 3.7 Chloride 98 Carbon Dioxide 26 Anion Gap 8 BUN 15 Creatinine 0.8 Creat Clearance w eGFR > 60 Random Glucose 90 Lactic Acid 2.1 H Calcium 9.2 Total Bilirubin 0.2 AST 117 H ALT 127 H Alkaline Phosphatase 536 H Troponin I < 0.02 Total Protein 9.1 H Albumin 3.7 05/23/18 00:33 PT with INR 13.90 H INR 1.18 H PTT (Actin FS) 36.2 Sodium Potassium Chloride Carbon Dioxide Anion Gap BUN Creatinine Creat Clearance w eGFR Random Glucose Lactic Acid Calcium Total Bilirubin AST ALT Alkaline Phosphatase Troponin I Total Protein Albumin 05/23/18 00:33 RBC 4.29 MCV 98.2 H MCHC 35.1 RDW 15.2 MPV 10.1 D Neutrophils % 80.3 D Lymphocytes % 12.5 D Monocytes % 6.6 Eosinophils % 0.4 D Basophils % 0.2 - Medications Given in the ED: ED Medications Discontinued Medications Generic Name Dose Route Start Last Admin Trade Name Debbie PRN Reason Stop Dose Admin Acetaminophen 1,000 mg 05/23/18 00:50 05/23/18 01:20 Ofirmev Injection - IVPB 05/23/18 00:51 1,000 mg ONCE ONE Administration Sodium Chloride 1,000 mls @ 1,000 mls/hr 05/23/18 00:50 05/23/18 01:20 Normal Saline - IV 05/23/18 01:49 1,000 mls/hr ASDIR STA Administration Piperacillin Sod/Tazobactam 50 mls @ 100 mls/hr 05/23/18 00:51 05/23/18 01:45 Sod 3.375 gm/ Dextrose IVPB 01/13/19 01:20 100 mls/hr ONCE ONE Administration Protocol Sodium Chloride 500 mls @ 0 mls/hr 05/23/18 02:30 05/23/18 03:31 Normal Saline - IV Not Given ASDIR JORGE Wide Open Vancomycin HCl 1,000 mg 05/23/18 00:51 05/23/18 03:05 Vancomycin (Pre-Docked) IVPB 05/23/18 00:52 1,000 mg ONCE ONE Administration Protocol Medical Decision Making - Medical Decision Making 05/29/18 19:34 Patient signed out by resident Dr. Govea Patient with SIRS, coughing with leukocystosis and left shift concerning for pulmonary infection, Pending CT chest and admission Patient signed out to resident Dr. Louis *DC/Admit/Observation/Transfer Diagnosis at time of Disposition: Fever, Pneumonia, Respiratory distress, Sepsis - Discharge Dispostion Condition at time of disposition: Stable - Referrals - Patient Instructions - Post Discharge Activity
[2018-05-23 04:43] LABS: URINE APPEARANCE CLEAR; URINE BILIRUBIN NEGATIVE (<2.0 mg/dL); URINE COLOR STRAW; URINE GLUCOSE (UA) NEGATIVE (NEGATIVE); URINE KETONE NEGATIVE (NEGATIVE); URINE LEUK ESTERASE NEGATIVE (NEGATIVE); URINE NITRITE NEGATIVE (NEGATIVE); URINE PROTEIN NEGATIVE (NEGATIVE); URINE UROBILINOGEN NEGATIVE mg/dL (0.2-1.0)
--- NOTE | 2018-05-23 07:15 | PDOC ---
*Physical Exam - Vital Signs Last Vital Signs Temp Pulse Resp BP Pulse Ox 100.8 F H 125 H 17 117/53 L 93 L 05/23/18 01:29 05/23/18 06:42 05/23/18 06:42 05/23/18 06:42 05/23/18 01:29 Vital Signs - Vital Signs #2 Blood Pressure: 100/50 MAP: 66 BP Location: Right Arm Blood Pressure Position: Supine Pulse Rate: 107 Respiratory Rate: 16 ED Treatment Course - LABORATORY CBC & Chemistry Diagram: 05/23/18 00:33 05/23/18 00:33 - ADDITIONAL ORDERS Additional order review: Laboratory Results 05/23/18 05/23/18 05/23/18 05:20 04:30 00:33 PT with INR INR PTT (Actin FS) Sodium Potassium Chloride Carbon Dioxide Anion Gap BUN Creatinine Creat Clearance w eGFR Random Glucose Lactic Acid 2.9 H* Calcium Total Bilirubin AST ALT Alkaline Phosphatase Troponin I < 0.02 Total Protein Albumin Urine Color Straw Urine Appearance Clear Urine pH 8.0 Ur Specific [place] 1.008 L Urine Protein Negative Urine Glucose (UA) Negative Urine Ketones Negative Urine Blood Negative Urine Nitrite Negative Urine Bilirubin Negative Urine Urobilinogen Negative Ur Leukocyte Esterase Negative 05/23/18 05/23/18 05/23/18 00:33 00:33 00:33 PT with INR 13.90 H INR 1.18 H PTT (Actin FS) 36.2 Sodium 132 L Potassium 3.7 Chloride 98 Carbon Dioxide 26 Anion Gap 8 BUN 15 Creatinine 0.8 Creat Clearance w eGFR > 60 Random Glucose 90 Lactic Acid 2.1 H Calcium 9.2 Total Bilirubin 0.2 AST 117 H ALT 127 H Alkaline Phosphatase 536 H Troponin I Total Protein 9.1 H Albumin 3.7 Urine Color Urine Appearance Urine pH Ur Specific [place] Urine Protein Urine Glucose (UA) Urine Ketones Urine Blood Urine Nitrite Urine Bilirubin Urine Urobilinogen Ur Leukocyte Esterase 05/23/18 00:33 RBC 4.29 MCV 98.2 H MCHC 35.1 RDW 15.2 MPV 10.1 D Neutrophils % 80.3 D Lymphocytes % 12.5 D Monocytes % 6.6 Eosinophils % 0.4 D Basophils % 0.2 - Medications Given in the ED: ED Medications Discontinued Medications Generic Name Dose Route Start Last Admin Trade Name Freq PRN Reason Stop Dose Admin Acetaminophen 1,000 mg 05/23/18 00:50 05/23/18 01:20 Ofirmev Injection - IVPB 05/23/18 00:51 1,000 mg ONCE ONE Administration Sodium Chloride 1,000 mls @ 1,000 mls/hr 05/23/18 00:50 05/23/18 01:20 Normal Saline - IV 05/23/18 01:49 1,000 mls/hr ASDIR STA Administration Piperacillin Sod/Tazobactam 50 mls @ 100 mls/hr 05/23/18 00:51 05/23/18 01:45 Sod 3.375 gm/ Dextrose IVPB 05/23/18 01:20 100 mls/hr ONCE ONE Administration Protocol Sodium Chloride 500 mls @ 0 mls/hr 05/23/18 02:30 05/23/18 03:31 Normal Saline - IV Not Given ASDIR JORGE Wide Open Vancomycin HCl 1,000 mg 05/23/18 00:51 05/23/18 03:05 Vancomycin (Pre-Docked) IVPB 05/23/18 00:52 1,000 mg ONCE ONE Administration Protocol Medical Decision Making - Medical Decision Making 05/23/18 07:09 Patient is 23M with history of CP, recurrent pneumonia, herpes meningitis/ encephalitis, G tube placement, epilepsy, sent to ED from [facility] for fever 101.6F with cough, 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 Aide at bedside is unsure of how long this has been going on, but states that a bug has been going through the school. PCP: Dr. Jose Luis Valentino My examination: awake, alert, tracking, nonverbal. tachycardic, regular rhythm. scattered rales, expiratory wheezing. Initial Vital Signs Temp Pulse Resp BP Pulse Ox 102.1 F H 125 H 16 101/63 93 L 05/23/18 00:00 05/23/18 00:00 05/23/18 00:00 05/23/18 00:00 05/23/18 00:00 Febrile. Tachycardic. No tachypnea. Mild hypotension. Mild hypoxia on room air. - Pt is currently satting well on nonrebreather. Vital Signs Temperature 100.8 F H 05/23/18 01:29 Pulse Rate 125 H 05/23/18 06:42 Respiratory Rate 17 05/23/18 06:42 Blood Pressure 117/53 L 05/23/18 06:42 Most recent vitals: Vital Signs Temperature 100.8 F H 05/23/18 01:29 Pulse Rate 107 H 05/23/18 07:27 Respiratory Rate 16 05/23/18 07:27 Blood Pressure 100/50 L 05/23/18 07:27 O2 Sat by Pulse Oximetry (%) 96 05/23/18 07:27 Tachycardia improving with hydration. Mild hypotension. No hypoxia on nonrebreather. EKG performed at 0024: rate 128, regular rhythm, right axis, normal intervals, nonspecific ST changes. CBC WBC 12.0 K/mm3 (4.0-10.0) H 05/23/18 00:33 RBC 4.29 M/mm3 (4.00-5.60) 05/23/18 00:33 Hgb 14.8 GM/dL (11.7-16.9) 05/23/18 00:33 Hct 42.1 % (35.4-49) D 05/23/18 00:33 MCV 98.2 fl (80-96) H 05/23/18 00:33 MCH 34.5 pg (25.7-33.7) H 05/23/18 00:33 MCHC 35.1 g/dl (32.0-35.9) 05/23/18 00:33 RDW 15.2 % (11.9-15.9) 05/23/18 00:33 Plt Count 288 K/MM3 (134-434) D 05/23/18 00:33 MPV 10.1 fl (7.5-11.1) D 05/23/18 00:33 Absolute Neuts (auto) 9.6 K/mm3 (1.5-8.0) H 05/23/18 00:33 Neutrophils % 80.3 % (42.8-82.8) D 05/23/18 00:33 Lymphocytes % 12.5 % (8-40) D 05/23/18 00:33 Monocytes % 6.6 % (3.8-10.2) 05/23/18 00:33 Eosinophils % 0.4 % (0-4.5) D 05/23/18 00:33 Basophils % 0.2 % (0-2.0) 05/23/18 00:33 Nucleated RBC % 0 % (0-0) 05/23/18 00:33 Leukocytosis with left shift. CMP Sodium 132 mmol/L (136-145) L 05/23/18 00:33 Potassium 3.7 mmol/L (3.5-5.1) 05/23/18 00:33 Chloride 98 mmol/L (98-107) 05/23/18 00:33 Carbon Dioxide 26 mmol/L (21-32) 05/23/18 00:33 Anion Gap 8 MMOL/L (8-16) 05/23/18 00:33 BUN 15 mg/dL (7-18) 05/23/18 00:33 Creatinine 0.8 mg/dL (0.55-1.3) 05/23/18 00:33 Creat Clearance w eGFR > 60 (>60) 05/23/18 00:33 Random Glucose 90 mg/dL (74-106) 05/23/18 00:33 Lactic Acid 2.9 mmol/L (0.4-2.0) H* 05/23/18 05:20 Calcium 9.2 mg/dL (8.5-10.1) 05/23/18 00:33 Total Bilirubin 0.2 mg/dL (0.2-1) 05/23/18 00:33 AST 117 U/L (15-37) H 05/23/18 00:33 ALT 127 U/L (13-61) H 05/23/18 00:33 Alkaline Phosphatase 536 U/L (45-117) H 05/23/18 00:33 Troponin I < 0.02 ng/ml (0.00-0.05) 05/23/18 00:33 Total Protein 9.1 g/dl (6.4-8.2) H 05/23/18 00:33 Albumin 3.7 g/dl (3.4-5.0) 05/23/18 00:33 Mild hyponatremia. - Pt receiving IV fluids Lactate was increasing over night. - Additional IV fluids were ordered Transaminitis is at baseline. Normal troponin. Urine Test Results Urine Color Straw 05/23/18 04:30 Urine Appearance Clear 05/23/18 04:30 Urine pH 8.0 (5.0-8.0) 05/23/18 04:30 Ur Specific [place] 1.008 (1.010-1.035) L 05/23/18 04:30 Urine Protein Negative (NEGATIVE) 05/23/18 04:30 Urine Glucose (UA) Negative (NEGATIVE) 05/23/18 04:30 Urine Ketones Negative (NEGATIVE) 05/23/18 04:30 Urine Blood Negative (NEGATIVE) 05/23/18 04:30 Urine Nitrite Negative (NEGATIVE) 05/23/18 04:30 Urine Bilirubin Negative (<2.0 mg/dL) 05/23/18 04:30 Ur Leukocyte Esterase Negative (NEGATIVE) 05/23/18 04:30 UA negative for infection. No blood in urine. Influenza A/B negative. CXR poor quality secondary to malrotation. Pt displays SIRS, likely secondary to pulmonary infection, pending CT. - Blood cultures pending - Urine culture pending Medications given: Vancomycin, Zosyn, IV fluid bolus (3X), tylenol Additional medications ordered: venkat Trammell 05/23/18 09:58 CT chest/abdomen/pelvis report: moderate bilateral perihilar infiltrates representing ARDS, CHF or bilateral pneumonia. mild hilar adenopathy bilaterally. G-tube in good position. Pt to be admitted for pneumonia, respiratory distress, sepsis, lactic acidosis. - Vancomycin and Zosyn given. - Pending repeat lactic after 3L normal saline boluses. 05/23/18 10:23 I spoke with the internal medicine resident, who stated pt is to be admitted to Dr. Dumont's service. Pending admission. Repeat lactate 2.6 05/23/18 12:55 Vital Signs Pulse Rate 107 H 05/23/18 12:55 Respiratory Rate 16 05/23/18 12:55 Blood Pressure 113/51 L 05/23/18 12:55 O2 Sat by Pulse Oximetry (%) 99% 05/23/18 12:55 Vitals stable. Pt reassessed, awake, alert, tracking. *DC/Admit/Observation/Transfer Diagnosis at time of Disposition: Fever, Pneumonia, Respiratory distress, Sepsis - Discharge Dispostion Condition at time of disposition: Stable Decision to Admit order: Yes - Referrals - Patient Instructions - Post Discharge Activity Vital Signs - Vital Signs Pulse Rate: 107 Respiratory Rate: 16 Blood Pressure: 113/51 BP Location: Right Arm Blood Pressure Position: Sitting
[2018-05-23] MEDS ORDERED: ALBUTEROL SO4 2.5/IPRATROPIUM 0.5 INH SOL 3 ML VIAL.NEB. NEB ONE ×2 (07:29→07:59)
--- NOTE | 2018-05-23 08:32 | EKG ---
Test Reason : Blood Pressure : / mmHG Vent. Rate : 128 BPM Atrial Rate : 128 BPM P-R Int : 136 ms QRS Dur : 100 ms QT Int : 294 ms P-R-T Axes : 063 162 031 degrees QTc Int : 429 ms POOR DATA QUALITY, INTERPRETATION MAY BE ADVERSELY AFFECTED SINUS TACHYCARDIA RIGHT AXIS DEVIATION INFERIOR-POSTERIOR INFARCT (CITED ON OR BEFORE 26-JUN-2016) ABNORMAL ECG WHEN COMPARED WITH ECG OF 19-MAR-2018 08:53, RIGHT BUNDLE BRANCH BLOCK IS NO LONGER PRESENT Confirmed by NINI SCHWARZ, ALIX ([id number]) on 05/23/2018 8:32:14 AM Referred By: Confirmed By:ALIX TERRAZAS MD
--- NOTE | 2018-05-23 13:39 | CON.ID ---
Consult Consult Specialty:: infectious disease Referred by:: hospitalist Reason for Consultation:: sepsis,pneumonia - History of Present Illness Chief Complaint: not doing well History of Present Illness: 23-year-old male resident of [facility] who was brought in to the ER this morning by EMS because of respiratory distress, fevers and hypoxia. He has a past medical history of profound MR, functional quadriplegia, seizure disorder, asthma, chronic hypothermia, pneumonia with prior intubations and herpes encephalopathy. 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) Pulmonary: Yes: Asthma Gastrointestinal: Yes: Other (gastrostomy) Infectious Disease: Yes: Herpes Zoster Musculoskeletal: Yes: Other (Functional Qaudraplegic) - Alcohol/Substance Use Hx Alcohol Use: No - Smoking History Smoking history: Never smoked Have you smoked in the past 12 months: No Aproximately how many cigarettes per day: 0 - Social History Usual Living Arrangement: [facility] ADL: Support Services History of Recent Travel: No Home Medications - Allergies Allergies/Adverse Reactions: Allergies Allergy/AdvReac Type Severity Reaction Status Date / Time No Known Allergies Allergy Verified 05/23/18 02:04 - Home Medications Home Medications: Ambulatory Orders Acyclovir 400 mg GT BID 04/25/17 Baclofen 10 mg GT BID 04/25/17 Benzoyl Peroxide 5% Gel - 1 applic TP BID 04/25/17 Clobazam [Onfi -] 5 mg GT BID 04/25/17 Clonazepam 1.5 mg GT TID 04/25/17 Fluticasone Propionate [Flovent Diskus] 50 mcg IH DAILY 04/25/17 Ipratropium/Albuterol Sulfate [Iprat-Albut 0.5-3(2.5) mg/3 ml] 3 ml IH Q6H 04/25 Lactobacillus Acidophilus [Acidophilus] 1 each GT HS 04/25/17 Lamotrigine 200 mg GT BID 04/25/17 Magnesium Hydrox 2400MG/30Ml [Milk of Magnesia -] 20 ml GT BID 04/25/17 Multivitamin [Poly-Vitamin] 1 each GT HS 04/25/17 Phenobarbital 48.6 mg GT BID 04/25/17 Acetylcysteine Po/INH 20% [Mucomyst 20 Oral / INH Use Only*] 100 mg NEB RQID vial 03/29/18 Ranitidine [Zantac -] 75 mg GT BID #0 tab 03/29/18 Bisacodyl 10 mg RC PRN PRN 05/23/18 Diazepam Rectal Gel [Diastat Rectal Gel -] 10 mg MI PRN PRN 05/23/18 Fluticasone Prop 0.05% Nasal [Flonase -] 2 spray NS DAILY 05/23/18 Fructooligosaccharides/Polydex [Fiber-Stat 15 gm/30 ml Liquid] 15 gm GT HS 05/23 Protein Supplement [Promod] 946 ml PO DAILY 05/23/18 Sodium Phosphate/Na Biphos [Fleet Adult Rectal Enema] 133 ml RC ONCE PRN Review of Systems Unable to obtain ROS, reason: unable to obtain Physical Exam Vital Signs: Vital Signs Temperature 100.2 F H 05/23/18 08:28 Pulse Rate 107 H 05/23/18 12:56 Respiratory Rate 16 05/23/18 12:56 Blood Pressure 100/50 L 05/23/18 12:56 O2 Sat by Pulse Oximetry (%) 98 05/23/18 08:28 Constitutional: Yes: Other Cardiovascular: Yes: Regular Rate and Rhythm Respiratory: Yes: Regular, On Nasal O2, Poor Air Entry, Rhonchi Gastrointestinal: Yes: Normal Bowel Sounds, Soft, Other Musculoskeletal: Yes: WNL Extremities: Yes: Other Neurological: Yes: Alert, Other Psychiatric: Yes: Other Labs: CBC, BMP 05/23/18 00:33 05/23/18 00:33 Imaging - Results Chest X-ray: Report Reviewed, Image Reviewed Cat Scan: Report Reviewed, Image Reviewed Assessment/Plan Patient is a 23 year old male with PMHx of profound MR, functional quadriplegia , seizure disorder, asthma, chronic hypothermia, pneumonia with prior intubations and herpes encephalopathy. He was brought into the ED with hypoxia and respiratory distress with fevers of 101.6, increased non productive cough. spesis pneumonia resp failure seizures plan will start patient on broad spectrum abx await for all cx reports nutrition rest as per the team close monitoring
[2018-05-23] MEDS: PIPERACILLIN/TAZOB 3.375 GM 3.375 GM in DEXTROSE 5%-WATER - 50 ML IVPB SCH ×2 (14:10→18:42)
[2018-05-23] MEDS: VANCOMYCIN 1,250 MG in DEXTROSE 5%-WATER - 250 ML IVPB SCH (14:45)
[2018-05-23] MEDS ORDERED: LORazepam 2 MG/ML SDV VIAL IVPUSH PRN (16:02)
[2018-05-23] MEDS ORDERED: ACETAMINOPHEN 1000 MG/100 ML VIAL (NON FORMULARY) IVPB PRN ×2 (16:03→16:09)
--- NOTE | 2018-05-23 16:10 | HP ---
CHIEF COMPLAINT: shortness of breath PCP: Dr. Valentino HISTORY OF PRESENT ILLNESS: Patient is a 23-year-old male resident of [facility] who was brought in to the ER this morning by EMS because of respiratory distress, fevers and hypoxia. He has a past medical history of profound MR, functional quadriplegia, seizure disorder, asthma, chronic hypothermia, pneumonia with prior intubations and herpes encephalopathy. ER course was notable for: (1) remains febrile, tachycardic. lactic acid 2.7 (2) trop negative (3) PAST MEDICAL HISTORY: Profound mental retardation Epilepsy Asthma Hypothermia Herpes encephalitis PAST SURGICAL HISTORY: peg tube No Known Allergies Allergy (Verified 05/23/18 02:04) HOME MEDICATIONS: Home Medications Medication Instructions Recorded Acyclovir 400 mg GT BID 04/25/17 Baclofen 10 mg GT BID 04/25/17 Benzoyl Peroxide 5% Gel - 1 applic TP BID 04/25/17 Clobazam [Onfi -] 5 mg GT BID 04/25/17 Clonazepam 1.5 mg GT TID 04/25/17 Fluticasone Propionate [Flovent 50 mcg IH DAILY 04/25/17 Diskus] Ipratropium/Albuterol Sulfate 3 ml IH Q6H 04/25/17 [Iprat-Albut 0.5-3(2.5) mg/3 ml] Lactobacillus Acidophilus 1 each GT HS 04/25/17 [Acidophilus] Lamotrigine 200 mg GT BID 04/25/17 Magnesium Hydrox 2400MG/30Ml [Milk 20 ml GT BID 04/25/17 of Magnesia -] Multivitamin [Poly-Vitamin] 1 each GT HS 04/25/17 Phenobarbital 48.6 mg GT BID 04/25/17 Acetylcysteine Po/INH 20% 100 mg NEB RQID vial 03/29/18 [Mucomyst 20 Oral / INH Use Only*] Ranitidine [Zantac -] 75 mg GT BID #0 tab 03/29/18 Bisacodyl 10 mg RC PRN PRN 05/23/18 Diazepam Rectal Gel [Diastat 10 mg NC PRN PRN 05/23/18 Rectal Gel -] Fluticasone Prop 0.05% Nasal 2 spray NS DAILY 05/23/18 [Flonase -] Fructooligosaccharides/Polydex 15 gm GT HS 05/23/18 [Fiber-Stat 15 gm/30 ml Liquid] Protein Supplement [Promod] 946 ml PO DAILY 05/23/18 Sodium Phosphate/Na Biphos [Fleet 133 ml RC ONCE PRN 05/23/18 Adult Rectal Enema] PHYSICAL EXAMINATION Vital Signs - 24 hr 05/23/18 05/23/18 05/23/18 00:00 01:29 06:42 Temperature 102.1 F H 100.8 F H Pulse Rate 125 H Pulse Rate [#2] Pulse Rate [ 122 H 125 H Apical] Respiratory 16 20 17 Rate Respiratory Rate [#2] Blood Pressure 101/63 Blood Pressure [#2] Blood Pressure 90/71 117/53 L [Left] O2 Sat by Pulse 93 L 93 L Oximetry (%) 05/23/18 05/23/18 05/23/18 08:28 12:56 16:06 Temperature 100.2 F H 210.9 F H Pulse Rate 107 H Pulse Rate [#2] 107 H Pulse Rate [ 108 H 104 H Apical] Respiratory 28 H 16 22 H Rate Respiratory 16 Rate [#2] Blood Pressure 113/51 L Blood Pressure 100/50 L [#2] Blood Pressure 97/58 L 102/54 L [Left] O2 Sat by Pulse 98 99 Oximetry (%) GENERAL: non verbal at baseline HEAD: Normal with no signs of trauma. microcephaly, right side of face with an area of small vesicles LUNGS:scattered rhonchi HEART: sinus tachycardia 108 ABDOMEN: Soft, nontender, PEG tube in place. EXTREMITIES: Contracted. 2+ pulses, warm, well-perfused, localized edema to left foot NEUROLOGICAL: nonverbal, unable to follow commands, severe MR SKIN: Warm, dry, capillary refill <3 seconds, position Laboratory Results - last 24 hr 05/23/18 05/23/18 05/23/18 00:33 00:33 00:33 WBC 12.0 H RBC 4.29 Hgb 14.8 Hct 42.1 D MCV 98.2 H MCH 34.5 H MCHC 35.1 RDW 15.2 Plt Count 288 D MPV 10.1 D Absolute Neuts (auto) 9.6 H Neutrophils % 80.3 D Lymphocytes % 12.5 D Monocytes % 6.6 Eosinophils % 0.4 D Basophils % 0.2 Nucleated RBC % 0 PT with INR 13.90 H INR 1.18 H PTT (Actin FS) 36.2 Sodium 132 L Potassium 3.7 Chloride 98 Carbon Dioxide 26 Anion Gap 8 BUN 15 Creatinine 0.8 Creat Clearance w eGFR > 60 Random Glucose 90 Lactic Acid Calcium 9.2 Total Bilirubin 0.2 AST 117 H ALT 127 H Alkaline Phosphatase 536 H Troponin I Total Protein 9.1 H Albumin 3.7 Urine Color Urine Appearance Urine pH Ur Specific [place] Urine Protein Urine Glucose (UA) Urine Ketones Urine Blood Urine Nitrite Urine Bilirubin Urine Urobilinogen Ur Leukocyte Esterase Influenza A (Rapid) Influenza B (Rapid) 05/23/18 05/23/18 05/23/18 00:33 00:33 00:33 WBC RBC Hgb Hct MCV MCH MCHC RDW Plt Count MPV Absolute Neuts (auto) Neutrophils % Lymphocytes % Monocytes % Eosinophils % Basophils % Nucleated RBC % PT with INR INR PTT (Actin FS) Sodium Potassium Chloride Carbon Dioxide Anion Gap BUN Creatinine Creat Clearance w eGFR Random Glucose Lactic Acid 2.1 H Calcium Total Bilirubin AST ALT Alkaline Phosphatase Troponin I < 0.02 Total Protein Albumin Urine Color Urine Appearance Urine pH Ur Specific [place] Urine Protein Urine Glucose (UA) Urine Ketones Urine Blood Urine Nitrite Urine Bilirubin Urine Urobilinogen Ur Leukocyte Esterase Influenza A (Rapid) Negative Influenza B (Rapid) Negative 05/23/18 05/23/18 05/23/18 04:30 05:20 08:14 WBC RBC Hgb Hct MCV MCH MCHC RDW Plt Count MPV Absolute Neuts (auto) Neutrophils % Lymphocytes % Monocytes % Eosinophils % Basophils % Nucleated RBC % PT with INR INR PTT (Actin FS) Sodium Potassium Chloride Carbon Dioxide Anion Gap BUN Creatinine Creat Clearance w eGFR Random Glucose Lactic Acid 2.9 H* 2.6 H* Calcium Total Bilirubin AST ALT Alkaline Phosphatase Troponin I Total Protein Albumin Urine Color Straw Urine Appearance Clear Urine pH 8.0 Ur Specific [place] 1.008 L Urine Protein Negative Urine Glucose (UA) Negative Urine Ketones Negative Urine Blood Negative Urine Nitrite Negative Urine Bilirubin Negative Urine Urobilinogen Negative Ur Leukocyte Esterase Negative Influenza A (Rapid) Influenza B (Rapid) ASSESSMENT/PLAN: Patient is a 23 year old male with PMHx of profound MR, functional quadriplegia , seizure disorder, asthma, chronic hypothermia, pneumonia with prior intubations and herpes encephalopathy. He was brought into the ED with hypoxia and respiratory distress with fevers of 101.6, increased non productive cough. ID: Severe Sepsis Meets sepsis criteria on admission (Leukocytosis, tachycardia, Lactic acid) Assessment/Plan: Sepsis likely secondary to pneumonia Pancultured. Lactic acidosis noted @ 2.6,repeat will order ua, uc, blood cultures ID consulted and started pt on vanco and zosyn On IVF @100/NS Hold feeds Pulmonary: Hypoxic respiratory failure - acute Assessment/Plan: Duonebs scheduled. bipap dependent GI: Transaminitis - acute Assessment/Plan: AST/ALT elevated, monitor trend Peg tub intact, hold feeds Neurology: Chronic hypothermia Assessment/Plan: Hypothermia protocol, baseline 94F no treatment unless falls below 94F Tenisha hugger as needed Seizures Assessment/Plan: On Clonazapam, Clobazam, phenobartital No reported seizures Seizure precautions in the setting of sepsis Hematology: Anemia Assessment/Plan: Monitor trend F.E.N. Fluids: NS @ 100cc/hr Electrolytes: monitor Nutrition: hold feeds, start tomorrow Prophylaxis: DVT: Prophylaxis: SCDs bilaterally, Lovenox 40mg daily GI Prophylaxis: Protonix 40mg Disposition: Patient requires inpatient stay Visit type - Emergency Visit Emergency Visit: Yes ED Registration Date: 05/23/18 Care time: The patient presented to the Emergency Department on the above date and was hospitalized for further evaluation of their emergent condition. - New Patient This patient is new to me today: Yes Date on this admission: 05/23/18 - Critical Care Critical Care patient: No
[2018-05-23] MEDS: ALBUTEROL SO4 2.5/IPRATROPIUM 0.5 INH SOL 3 ML VIAL.NEB. NEB SCH (20:20)
[2018-05-23] MEDS: SODIUM CHLORIDE 1,000 ML IV SCH (22:16)
[2018-05-23] MEDS: RANITIDINE HCL 150 MG/10 ML UNIT-DOSE GT SCH (22:17)
[2018-05-23] MEDS: clonazePAM 0.5 MG TABLET GT SCH (22:17)
[2018-05-23] MEDS: HEPARIN NA (PORCINE) 5,000 UNITS/ML 1ML VIAL SQ SCH (22:17)
[2018-05-23] MEDS: cloBAZam 10 MG TABLET GT SCH (22:17)
[2018-05-23] MEDS: ACYCLOVIR 400 MG TABLET GT SCH (22:17)
[2018-05-23] MEDS: BACLOFEN 10 MG TABLET (FP) GT SCH (22:17)
[2018-05-23] MEDS: PHENobarbital 30 MG TABLET GT SCH (22:17)
[2018-05-24] MEDS ORDERED: PIPERACILLIN/TAZOBACTAM 3.375 GM VIAL IVPB ONE ×3 (01:55→18:49)
[2018-05-24] MEDS ORDERED: DEXTROSE 5%-WATER - 50 ML IVPB ONE ×3 (01:55→18:50)
[2018-05-24] MEDS: PIPERACILLIN/TAZOB 3.375 GM 3.375 GM in DEXTROSE 5%-WATER - 50 ML IVPB SCH ×3 (02:37→18:56)
[2018-05-24] MEDS: SODIUM CHLORIDE 1,000 ML IV SCH ×2 (04:01→21:35)
[2018-05-24] MEDS: clonazePAM 0.5 MG TABLET GT SCH ×3 (06:33→22:22)
[2018-05-24] MEDS: IBUPROFEN 400 MG TABLET (FP) PO PRN (06:33)
[2018-05-24 07:30] LABS: HEMATOCRIT 38.5 % (35.4-49); HEMOGLOBIN 12.6 GM/dL (11.7-16.9); MCH 33.3 pg (25.7-33.7); MCHC 32.8 g/dl (32.0-35.9); MEAN CELL VOLUME 101.5 fl (80-96); MEAN PLT VOLUME 9.8 fl (7.5-11.1); PLATELET COUNT 192 K/MM3 (134-434); RBC 3.79 M/mm3 (4.00-5.60); RDW 15.1 % (11.9-15.9); WHITE BLOOD COUNT 10.5 K/mm3 (4.0-10.0)
[2018-05-24] MEDS: ALBUTEROL SO4 2.5/IPRATROPIUM 0.5 INH SOL 3 ML VIAL.NEB. NEB SCH ×4 (07:35→19:55)
[2018-05-24 08:14] LABS: ANION GAP 10 MMOL/L (8-16); BLOOD UREA NITROGEN 8 mg/dL (7-18); CALCIUM 8.6 mg/dL (8.5-10.1); CHLORIDE 106 mmol/L (98-107); CO2 23 mmol/L (21-32); CREATININE 0.5 mg/dL (0.55-1.3); GLUCOSE,RANDOM 83 mg/dL (74-106); MAGNESIUM 1.8 mg/dL (1.8-2.4); PHOSPHOROUS 3.9 mg/dL (2.5-4.9); POTASSIUM 3.8 mmol/L (3.5-5.1); SODIUM 138 mmol/L (136-145)
[2018-05-24] MEDS ORDERED: PT OWN MED DRAWER 7, Y5N ONE (10:07)
[2018-05-24] MEDS: RANITIDINE HCL 150 MG/10 ML UNIT-DOSE GT SCH ×2 (10:41→22:21)
[2018-05-24] MEDS: HEPARIN NA (PORCINE) 5,000 UNITS/ML 1ML VIAL SQ SCH ×2 (10:42→22:21)
[2018-05-24] MEDS: BACLOFEN 10 MG TABLET (FP) GT SCH ×2 (10:42→22:22)
--- NOTE | 2018-05-24 10:57 | PN ---
Physical Exam: SUBJECTIVE: Patient seen and examined at the bedside. aide in attendance. OBJECTIVE: lungs now mostly clear. laying in bed, smiling rsv/flu swab pending still with fevers start feeds. Vital Signs Period Temp Pulse Resp BP Sys/Linares Pulse Ox Last 24 Hr 98.4 F-101.3 F 66-109 16-22 99-117/39-78 95-100 GENERAL: non verbal at baseline HEAD: Normal with no signs of trauma. microcephaly, right side of face with an area of small vesicles LUNGS:clear on upper lobes, diminished on lower lobes HEART: rrr ABDOMEN: Soft, nontender, PEG tube in place. EXTREMITIES: Contracted. 2+ pulses, warm, well-perfused, localized edema to left foot NEUROLOGICAL: nonverbal, unable to follow commands, severe MR SKIN: Warm, dry, capillary refill <3 seconds, position Laboratory Results - last 24 hr 05/23/18 05/24/18 05/24/18 23:30 06:30 06:30 WBC 10.5 H RBC 3.79 L Hgb 12.6 Hct 38.5 MCV 101.5 H MCH 33.3 MCHC 32.8 RDW 15.1 Plt Count 192 D MPV 9.8 Sodium 138 Potassium 3.8 Chloride 106 Carbon Dioxide 23 Anion Gap 10 BUN 8 Creatinine 0.5 L Creat Clearance w eGFR > 60 Random Glucose 83 Lactic Acid 0.6 Calcium 8.6 Phosphorus 3.9 Magnesium 1.8 Active Medications Generic Name Dose Route Start Last Admin Trade Name Freq PRN Reason Stop Dose Admin Acyclovir 400 mg 05/23/18 22:00 05/23/18 22:17 Zovirax - GT 400 mg BID JORGE Administration Albuterol/Ipratropium 1 amp 05/23/18 20:00 05/24/18 07:35 Duoneb - NEB 1 amp RQID JORGE Administration Baclofen 10 mg 05/23/18 22:00 05/23/18 22:17 Lioresal - GT 10 mg BID JORGE Administration Clobazam 5 mg 05/23/18 22:00 05/23/18 22:17 Onfi - GT 5 mg BID JORGE Administration Clonazepam 1.5 mg 05/23/18 22:00 05/24/18 06:33 Klonopin - GT 1.5 mg TID JORGE Administration Heparin Sodium (Porcine) 5,000 unit 05/23/18 22:00 05/23/18 22:17 Heparin - SQ 5,000 unit BID JORGE Administration Vancomycin HCl 1,250 mg/ 250 mls @ 250 mls/2 hr 05/23/18 13:45 05/23/18 14:45 Dextrose IVPB 250 mls/2 hr Q24H JORGE Administration Protocol Piperacillin Sod/Tazobactam 50 mls @ 100 mls/hr 05/23/18 13:45 05/24/18 02:37 Sod 3.375 gm/ Dextrose IVPB 100 mls/hr Q8H-IV JORGE Administration Protocol Sodium Chloride 1,000 mls @ 100 mls/hr 05/23/18 20:30 05/24/18 04:01 Normal Saline - IV 100 mls/hr ASDIR JORGE Administration Ibuprofen 400 mg 05/24/18 06:12 05/24/18 06:33 Motrin - PO 400 mg Q6H PRN Administration FEVER Lamotrigine 200 mg 05/24/18 10:00 Lamictal - GT BID JORGE Lorazepam 1 mg 05/23/18 16:02 Ativan Injection - IVPUSH Q6H PRN seizures Phenobarbital 45 mg 05/23/18 22:00 05/23/18 22:17 Phenobarbital - GT 45 mg BID JORGE Administration Ranitidine HCl 75 mg 05/23/18 22:00 05/23/18 22:17 Zantac Oral Solution - GT 75 mg BID JORGE Administration ASSESSMENT/PLAN: Patient is a 23 year old male with PMHx of profound MR, functional quadriplegia , seizure disorder, asthma, chronic hypothermia, pneumonia with prior intubations and herpes encephalopathy. He was brought into the ED with hypoxia and respiratory distress with fevers of 101.6, increased non productive cough. ID: Severe Sepsis Met sepsis criteria on admission (Leukocytosis, tachycardia, Lactic acid) Assessment/Plan: Sepsis likely secondary to pneumonia Pancultured. Lactic acidosis resolved ua, uc, blood cultures pending ID consulted and started pt on vanco and zosyn On IVF @100/NS start feeds Pulmonary: Hypoxic respiratory failure - acute Assessment/Plan: Duonebs scheduled. bipap dependent GI: Transaminitis - acute Assessment/Plan: AST/ALT elevated, monitor trend Peg tub intact Neurology: Chronic hypothermia Assessment/Plan: Hypothermia protocol, baseline 94F no treatment unless falls below 94F Tenisha gonzalezgger as needed Seizures Assessment/Plan: On Clonazapam, Clobazam, phenobartital No reported seizures Seizure precautions in the setting of sepsis Hematology: Anemia Assessment/Plan: Monitor trend F.E.N. Fluids: NS @ 100cc/hr Electrolytes: monitor Nutrition:start feeds Prophylaxis: DVT: Prophylaxis: SCDs bilaterally, Lovenox 40mg daily GI Prophylaxis: Protonix 40mg Disposition: Patient requires inpatient stay Visit type - Emergency Visit Emergency Visit: Yes ED Registration Date: 05/23/18 Care time: The patient presented to the Emergency Department on the above date and was hospitalized for further evaluation of their emergent condition. - New Patient This patient is new to me today: No - Critical Care Critical Care patient: No - Discharge Referral Referred to [facility] Med P.C.: No
[2018-05-24] MEDS: PHENobarbital 30 MG TABLET GT SCH ×2 (11:01→22:22)
[2018-05-24] MEDS: cloBAZam 10 MG TABLET GT SCH ×2 (11:03→22:23)
[2018-05-24] MEDS: lamoTRIgine 100 MG TABLET (FP) GT SCH ×2 (11:25→22:24)
[2018-05-24] MEDS: ACYCLOVIR 400 MG TABLET GT SCH ×2 (11:26→22:22)
--- NOTE | 2018-05-24 14:04 | CON.PULM ---
Consult Consult Specialty:: PULMONARY Referred by:: VELIA Godfrey Reason for Consultation:: pneumonia - History of Present Illness Chief Complaint: fever History of Present Illness: 23yo male with h/o profound mental retardation, functional quadriplegia, cerebral palsy, seizure disorder, asthma, recurrent aspiration pneumonia who was transferred from [place] for respiratory distress, fevers and hypoxia. Pt nonverbal, contracted, unable to provide further history at this time. Febrile to 102.1 on presentation, chest imaging showing bilateral infiltrates. Currently saturating well on nasal cannula. - History Source History Provided By: Medical Record, Caregiver Limitations to Obtaining History: Clinical Condition - Past Medical History PENSION CONSULTANT: Yes: Other (Mental retardation, cerebral palsy) Pulmonary: Yes: Asthma Gastrointestinal: Yes: Other (gastrostomy) Infectious Disease: Yes: Herpes Zoster Musculoskeletal: Yes: Other (Functional Qaudraplegic) - Alcohol/Substance Use Hx Alcohol Use: No - Smoking History Smoking history: Never smoked Have you smoked in the past 12 months: No Aproximately how many cigarettes per day: 0 - Social History Usual Living Arrangement: [facility] ADL: Support Services History of Recent Travel: No Home Medications - Allergies Allergies/Adverse Reactions: Allergies Allergy/AdvReac Type Severity Reaction Status Date / Time No Known Allergies Allergy Verified 05/23/18 02:04 - Home Medications Home Medications: Ambulatory Orders Acyclovir 400 mg GT BID 04/25/17 Baclofen 10 mg GT BID 04/25/17 Benzoyl Peroxide 5% Gel - 1 applic TP BID 04/25/17 Clobazam [Onfi -] 5 mg GT BID 04/25/17 Clonazepam 1.5 mg GT TID 04/25/17 Fluticasone Propionate [Flovent Diskus] 50 mcg IH DAILY 04/25/17 Ipratropium/Albuterol Sulfate [Iprat-Albut 0.5-3(2.5) mg/3 ml] 3 ml IH Q6H 04/25 Lactobacillus Acidophilus [Acidophilus] 1 each GT HS 04/25/17 Lamotrigine 200 mg GT BID 04/25/17 Magnesium Hydrox 2400MG/30Ml [Milk of Magnesia -] 20 ml GT BID 04/25/17 Multivitamin [Poly-Vitamin] 1 each GT HS 04/25/17 Phenobarbital 48.6 mg GT BID 04/25/17 Acetylcysteine Po/INH 20% [Mucomyst 20 Oral / INH Use Only*] 100 mg NEB RQID vial 03/29/18 Ranitidine [Zantac -] 75 mg GT BID #0 tab 03/29/18 Bisacodyl 10 mg RC PRN PRN 05/23/18 Diazepam Rectal Gel [Diastat Rectal Gel -] 10 mg IA PRN PRN 05/23/18 Fluticasone Prop 0.05% Nasal [Flonase -] 2 spray NS DAILY 05/23/18 Fructooligosaccharides/Polydex [Fiber-Stat 15 gm/30 ml Liquid] 15 gm GT HS 05/23 Protein Supplement [Promod] 946 ml PO DAILY 05/23/18 Sodium Phosphate/Na Biphos [Fleet Adult Rectal Enema] 133 ml RC ONCE PRN Review of Systems Unable to obtain ROS, reason: pt nonverbal Physical Exam Vital Sings: Vital Signs Temperature 99.1 F 05/24/18 11:00 Pulse Rate 71 05/24/18 11:00 Respiratory Rate 21 H 05/24/18 11:00 Blood Pressure 102/40 L 05/24/18 11:00 O2 Sat by Pulse Oximetry (%) 95 05/24/18 06:00 Constitutional: Yes: Calm Eyes: Yes: Conjunctiva Clear, EOM Intact HENT: Yes: Atraumatic, Normocephalic Neck: Yes: Supple, Trachea Midline Cardiovascular: Yes: Regular Rate and Rhythm Respiratory: Yes: Rhonchi (scattered) ...Clubbing: No Gastrointestinal: Yes: Normal Bowel Sounds, Soft. No: Tenderness Edema: No Labs: CBC, BMP 05/24/18 06:30 05/24/18 06:30 Imaging - Results Chest X-ray: Report Reviewed, Image Reviewed Cat Scan: Report Reviewed, Image Reviewed (bilateral infiltrates) Problem List - Problems (1) Pneumonia Code(s): J18.9 - PNEUMONIA, UNSPECIFIED ORGANISM (2) Sepsis Code(s): A41.9 - SEPSIS, UNSPECIFIED ORGANISM (3) Aspiration pneumonia Code(s): J69.0 - PNEUMONITIS DUE TO INHALATION OF FOOD AND VOMIT (4) Epilepsy Code(s): G40.909 - EPILEPSY, UNSP, NOT INTRACTABLE, WITHOUT STATUS EPILEPTICUS (5) Profound mental retardation Code(s): F73 - PROFOUND INTELLECTUAL DISABILITIES (6) Lactic acidosis Code(s): E87.2 - ACIDOSIS Assessment/Plan Pneumonia likely Aspiration Sepsis Lactic Acidosis Mental Retardation/Cerebral Palsy Functional Quadriplegia Seizure Disorder Asthma - IV antibiotics - f/u cultures - aspiration precautions - O2 to keep SpO2 >90% - trend LFTs, if remains elevated would obtain RUQ ultrasound - DVT prophylaxis Thank you for this consult Jah Schmid MD
--- NOTE | 2018-05-24 14:38 | PN ---
Progress Note, Physician History of Present Illness: calmer no issues doing well non verbal - Current Medication List Current Medications: Active Medications Acyclovir (Zovirax -) 400 mg GT BID [facility] Last Admin: 05/24/18 11:26 Dose: 400 mg Albuterol/Ipratropium (Duoneb -) 1 amp NEB RQID [facility] Last Admin: 05/24/18 11:35 Dose: 1 amp Baclofen (Lioresal -) 10 mg GT BID [facility] Last Admin: 05/24/18 10:42 Dose: 10 mg Clobazam (Onfi -) 5 mg GT BID [facility] Last Admin: 05/24/18 11:03 Dose: 5 mg Clonazepam (Klonopin -) 1.5 mg GT TID [facility] Last Admin: 05/24/18 06:33 Dose: 1.5 mg Heparin Sodium (Porcine) (Heparin -) 5,000 unit SQ BID [facility] Last Admin: 05/24/18 10:42 Dose: 5,000 unit Vancomycin HCl 1,250 mg/ (Dextrose) 250 mls @ 250 mls/2 hr IVPB Q24H [facility]; Protocol Last Admin: 05/23/18 14:45 Dose: 250 mls/2 hr Piperacillin Sod/Tazobactam (Sod 3.375 gm/ Dextrose) 50 mls @ 100 mls/hr IVPB Q8H-IV JORGE; Protocol Last Admin: 05/24/18 10:41 Dose: 100 mls/hr Sodium Chloride (Normal Saline -) 1,000 mls @ 100 mls/hr IV ASDIR [facility] Last Admin: 05/24/18 04:01 Dose: 100 mls/hr Ibuprofen (Motrin -) 400 mg PO Q6H PRN PRN Reason: FEVER Last Admin: 05/24/18 06:33 Dose: 400 mg Lamotrigine (Lamictal -) 200 mg GT BID [facility] Last Admin: 05/24/18 11:25 Dose: 200 mg Lorazepam (Ativan Injection -) 1 mg IVPUSH Q6H PRN PRN Reason: seizures Phenobarbital (Phenobarbital -) 45 mg GT BID [facility] Last Admin: 05/24/18 11:01 Dose: 45 mg Ranitidine HCl (Zantac Oral Solution -) 75 mg GT BID [facility] Last Admin: 05/24/18 10:41 Dose: 75 mg - Objective Vital Signs: Vital Signs Temperature 99.1 F 05/24/18 11:00 Pulse Rate 71 05/24/18 11:00 Respiratory Rate 21 H 05/24/18 11:00 Blood Pressure 102/40 L 05/24/18 11:00 O2 Sat by Pulse Oximetry (%) 95 05/24/18 06:00 Constitutional: Yes: No Distress, Calm Cardiovascular: Yes: Regular Rate and Rhythm Respiratory: Yes: Poor Air Entry, Rhonchi Gastrointestinal: Yes: Normal Bowel Sounds, Soft, Other Musculoskeletal: Yes: WNL Extremities: Yes: Other Neurological: Yes: Alert, Other Psychiatric: Yes: Other Labs: CBC, BMP 05/24/18 06:30 05/24/18 06:30 INR, PTT INR 1.18 (0.83-1.09) H 05/23/18 00:33 Assessment/Plan Patient is a 23 year old male with PMHx of profound MR, functional quadriplegia , seizure disorder, asthma, chronic hypothermia, pneumonia with prior intubations and herpes encephalopathy. He was brought into the ED with hypoxia and respiratory distress with fevers of 101.6, increased non productive cough. spesis pneumonia resp failure seizures plan will start patient on broad spectrum abx await for all cx reports nutrition rest as per the team close monitoring wbc trending down
[2018-05-24] MEDS: VANCOMYCIN 1,250 MG in DEXTROSE 5%-WATER - 250 ML IVPB SCH (16:10)
[2018-05-25] MEDS ORDERED: PIPERACILLIN/TAZOBACTAM 3.375 GM VIAL IVPB ONE ×3 (01:53→17:27)
[2018-05-25] MEDS ORDERED: DEXTROSE 5%-WATER - 50 ML IVPB ONE ×3 (01:54→17:28)
[2018-05-25] MEDS: PIPERACILLIN/TAZOB 3.375 GM 3.375 GM in DEXTROSE 5%-WATER - 50 ML IVPB SCH ×3 (02:42→17:38)
[2018-05-25] MEDS: SODIUM CHLORIDE 1,000 ML IV SCH (04:44)
[2018-05-25] MEDS: IBUPROFEN 400 MG TABLET (FP) PO PRN (04:44)
[2018-05-25] MEDS: clonazePAM 0.5 MG TABLET GT SCH ×3 (05:42→22:56)
[2018-05-25] MEDS: ALBUTEROL SO4 2.5/IPRATROPIUM 0.5 INH SOL 3 ML VIAL.NEB. NEB SCH ×4 (07:30→20:03)
[2018-05-25 07:53] LABS: BASO % 0.4 % (0-2.0); EOS % 1.6 % (0-4.5); HEMATOCRIT 35.6 % (35.4-49); HEMOGLOBIN 12.3 GM/dL (11.7-16.9); LYMPH % 19.4 % (8-40); MCHC 34.7 g/dl (32.0-35.9); MEAN PLT VOLUME 9.9 fl (7.5-11.1); MONO % 11.3 % (3.8-10.2); NEUT % 67.3 % (42.8-82.8); PLATELET COUNT 217 K/MM3 (134-434); RBC 3.52 M/mm3 (4.00-5.60); RDW 15.2 % (11.9-15.9); WHITE BLOOD COUNT 7.3 K/mm3 (4.0-10.0)
[2018-05-25 08:33] LABS: ALBUMIN 2.8 g/dl (3.4-5.0); ALK PHOS 358 U/L (45-117); ANION GAP 10 MMOL/L (8-16); BILIRUBIN,TOTAL 0.4 mg/dL (0.2-1); BLOOD UREA NITROGEN 5 mg/dL (7-18); CALCIUM 8.2 mg/dL (8.5-10.1); CHLORIDE 105 mmol/L (98-107); CO2 25 mmol/L (21-32); CREATININE 0.6 mg/dL (0.55-1.3); GLUCOSE,RANDOM 91 mg/dL (74-106); MAGNESIUM 1.7 mg/dL (1.8-2.4); POTASSIUM 3.4 mmol/L (3.5-5.1); SGOT/AST 72 U/L (15-37); SGPT/ALT 95 U/L (13-61); SODIUM 140 mmol/L (136-145); TOT PROT 6.9 g/dl (6.4-8.2)
--- NOTE | 2018-05-25 09:58 | PN ---
Progress Note, Physician Chief Complaint: RSV and Flu swab negative pulm status improved with abx and nebs WBC downtrending 10.5--> 7.3 - Current Medication List Current Medications: Active Medications Acyclovir (Zovirax -) 400 mg GT BID [facility] Last Admin: 05/24/18 22:22 Dose: 400 mg Albuterol/Ipratropium (Duoneb -) 1 amp NEB RQID [facility] Last Admin: 05/24/18 19:55 Dose: 1 amp Baclofen (Lioresal -) 10 mg GT BID [facility] Last Admin: 05/24/18 22:22 Dose: 10 mg Clobazam (Onfi -) 5 mg GT BID [facility] Last Admin: 05/24/18 22:23 Dose: 5 mg Clonazepam (Klonopin -) 1.5 mg GT TID [facility] Last Admin: 05/25/18 05:42 Dose: 1.5 mg Heparin Sodium (Porcine) (Heparin -) 5,000 unit SQ BID [facility] Last Admin: 05/24/18 22:21 Dose: 5,000 unit Vancomycin HCl 1,250 mg/ (Dextrose) 250 mls @ 250 mls/2 hr IVPB Q24H [facility]; Protocol Last Admin: 05/24/18 16:10 Dose: 250 mls/2 hr Piperacillin Sod/Tazobactam (Sod 3.375 gm/ Dextrose) 50 mls @ 100 mls/hr IVPB Q8H-IV JORGE; Protocol Last Admin: 05/25/18 02:42 Dose: 100 mls/hr Sodium Chloride (Normal Saline -) 1,000 mls @ 100 mls/hr IV ASDIR [facility] Last Admin: 05/25/18 04:44 Dose: 100 mls/hr Ibuprofen (Motrin -) 400 mg PO Q6H PRN PRN Reason: FEVER Last Admin: 05/25/18 04:44 Dose: 400 mg Lamotrigine (Lamictal -) 200 mg GT BID [facility] Last Admin: 05/24/18 22:24 Dose: 200 mg Lorazepam (Ativan Injection -) 1 mg IVPUSH Q6H PRN PRN Reason: seizures Phenobarbital (Phenobarbital -) 45 mg GT BID [facility] Last Admin: 05/24/18 22:22 Dose: 45 mg Ranitidine HCl (Zantac Oral Solution -) 75 mg GT BID [facility] Last Admin: 05/24/18 22:21 Dose: 75 mg - Objective Vital Signs: Vital Signs Temperature 100.2 F H 05/25/18 06:00 Pulse Rate 96 H 05/25/18 06:00 Respiratory Rate 20 05/25/18 06:00 Blood Pressure 129/83 05/25/18 06:00 O2 Sat by Pulse Oximetry (%) 95 05/24/18 21:00 Constitutional: Yes: Calm Eyes: Yes: Conjunctiva Clear HENT: Yes: Atraumatic Neck: Yes: Supple Cardiovascular: Yes: Regular Rate and Rhythm Respiratory: Yes: Diminished, On Nasal O2 Gastrointestinal: Yes: Soft, Hypoactive Bowel Sounds ...Rectal Exam: Yes: Deferred Musculoskeletal: Yes: Joint Stiffness, Muscle Weakness Extremities: Yes: Other (contractures present x 4 extremities) Edema: No Peripheral Pulses WNL: Yes Peripheral Pulses: Left Radial: 2+, Right Radial: 2+ Labs: CBC, BMP 05/25/18 06:00 05/25/18 06:00 INR, PTT INR 1.18 (0.83-1.09) H 05/23/18 00:33 - ....Imaging Cat Scan: Report Reviewed (CT abd and pelvis 05/24/2018 Impression: No gross CT evidence of acute pathology is identified within the limitations of the exam. ) Problem List - Problems (1) Pneumonia Assessment/Plan: continue with vanco/Zosyn trend WBC and fever curve Code(s): J18.9 - PNEUMONIA, UNSPECIFIED ORGANISM (2) Epilepsy Assessment/Plan: continue Clonazapam, Clobazam, phenobartital Code(s): G40.909 - EPILEPSY, UNSP, NOT INTRACTABLE, WITHOUT STATUS EPILEPTICUS (3) PEG (percutaneous endoscopic gastrostomy) status Assessment/Plan: restart jevity at 15ml/hr and titrate 10ml q6hrs for goal of 55ml/hr Code(s): Z93.1 - GASTROSTOMY STATUS (4) Chronic respiratory insufficiency Assessment/Plan: Duonebs scheduled. bipap dependent Code(s): R06.89 - OTHER ABNORMALITIES OF BREATHING Impression/Plan Impression/Plan: F.E.N. Electrolytes: monitor Nutrition:Jevity Prophylaxis: DVT: Prophylaxis: SCDs bilaterally, Lovenox 40mg daily GI Prophylaxis: Protonix 40mg Visit type - Emergency Visit Emergency Visit: Yes ED Registration Date: 05/23/18 Care time: The patient presented to the Emergency Department on the above date and was hospitalized for further evaluation of their emergent condition. - New Patient This patient is new to me today: Yes Date on this admission: 05/25/18 - Critical Care Critical Care patient: No - Discharge Referral Referred to [facility] Med P.C.: No
[2018-05-25] MEDS: RANITIDINE HCL 150 MG/10 ML UNIT-DOSE GT SCH ×2 (10:05→22:57)
[2018-05-25] MEDS: PHENobarbital 30 MG TABLET GT SCH ×2 (10:09→22:56)
[2018-05-25] MEDS: cloBAZam 10 MG TABLET GT SCH ×2 (10:09→22:57)
[2018-05-25] MEDS: lamoTRIgine 100 MG TABLET (FP) GT SCH ×2 (10:09→22:58)
[2018-05-25] MEDS: BACLOFEN 10 MG TABLET (FP) GT SCH ×2 (10:10→22:57)
[2018-05-25] MEDS: HEPARIN NA (PORCINE) 5,000 UNITS/ML 1ML VIAL SQ SCH ×2 (10:10→22:56)
[2018-05-25] MEDS: ACYCLOVIR 400 MG TABLET GT SCH ×2 (10:11→22:58)
--- NOTE | 2018-05-25 12:50 | PN ---
Progress Note (short form) - Note Progress Note: PULMONARY Pt nonverbal. Fever curve trending down. Vital Signs Period Temp Pulse Resp BP Sys/Linares Pulse Ox Last 24 Hr 98.1 F-100.2 F 60-96 20-20 102-129/44-83 95-100 Gen: breathing nonlabored Heart: RRR Lung: scattered rhonchi Abd: soft, nontender Ext: no edema CBC, BMP 05/25/18 06:00 05/25/18 06:00 Hepatic Panel Total Bilirubin 0.4 mg/dL (0.2-1) 05/25/18 06:00 AST 72 U/L (15-37) H 05/25/18 06:00 ALT 95 U/L (13-61) H 05/25/18 06:00 Alkaline Phosphatase 358 U/L (45-117) H 05/25/18 06:00 Albumin 2.8 g/dl (3.4-5.0) L 05/25/18 06:00 Active Medications Acyclovir (Zovirax -) 400 mg GT BID [facility] Last Admin: 05/25/18 10:11 Dose: 400 mg Albuterol/Ipratropium (Duoneb -) 1 amp NEB RQID [facility] Last Admin: 05/24/18 19:55 Dose: 1 amp Baclofen (Lioresal -) 10 mg GT BID [facility] Last Admin: 05/25/18 10:10 Dose: 10 mg Clobazam (Onfi -) 5 mg GT BID [facility] Last Admin: 05/25/18 10:09 Dose: 5 mg Clonazepam (Klonopin -) 1.5 mg GT TID [facility] Last Admin: 05/25/18 05:42 Dose: 1.5 mg Heparin Sodium (Porcine) (Heparin -) 5,000 unit SQ BID [facility] Last Admin: 05/25/18 10:10 Dose: 5,000 unit Vancomycin HCl 1,250 mg/ (Dextrose) 250 mls @ 250 mls/2 hr IVPB Q24H [facility]; Protocol Last Admin: 05/24/18 16:10 Dose: 250 mls/2 hr Piperacillin Sod/Tazobactam (Sod 3.375 gm/ Dextrose) 50 mls @ 100 mls/hr IVPB Q8H-IV [facility]; Protocol Last Admin: 05/25/18 10:05 Dose: 100 mls/hr Sodium Chloride (Normal Saline -) 1,000 mls @ 100 mls/hr IV ASDIR [facility] Last Admin: 05/25/18 04:44 Dose: 100 mls/hr Ibuprofen (Motrin -) 400 mg PO Q6H PRN PRN Reason: FEVER Last Admin: 05/25/18 04:44 Dose: 400 mg Lamotrigine (Lamictal -) 200 mg GT BID [facility] Last Admin: 05/25/18 10:09 Dose: 200 mg Lorazepam (Ativan Injection -) 1 mg IVPUSH Q6H PRN PRN Reason: seizures Phenobarbital (Phenobarbital -) 45 mg GT BID [facility] Last Admin: 05/25/18 10:09 Dose: 45 mg Ranitidine HCl (Zantac Oral Solution -) 75 mg GT BID [facility] Last Admin: 05/25/18 10:05 Dose: 75 mg A/P Pneumonia likely Aspiration Sepsis Lactic Acidosis Mental Retardation/Cerebral Palsy Functional Quadriplegia Seizure Disorder Asthma - continue antibiotics - f/u cultures - aspiration precautions - O2 to keep SpO2 >90% - trend LFTs - DVT prophylaxis Problem List - Problems (1) Pneumonia Code(s): J18.9 - PNEUMONIA, UNSPECIFIED ORGANISM (2) Sepsis Code(s): A41.9 - SEPSIS, UNSPECIFIED ORGANISM (3) Aspiration pneumonia Code(s): J69.0 - PNEUMONITIS DUE TO INHALATION OF FOOD AND VOMIT (4) Epilepsy Code(s): G40.909 - EPILEPSY, UNSP, NOT INTRACTABLE, WITHOUT STATUS EPILEPTICUS (5) Profound mental retardation Code(s): F73 - PROFOUND INTELLECTUAL DISABILITIES (6) Lactic acidosis Code(s): E87.2 - ACIDOSIS
[2018-05-25] MEDS: VANCOMYCIN 1,250 MG in DEXTROSE 5%-WATER - 250 ML IVPB SCH (13:04)
--- NOTE | 2018-05-25 13:50 | PN ---
Progress Note, Physician History of Present Illness: patient stable had couple of spikes of fever stable - Current Medication List Current Medications: Active Medications Acyclovir (Zovirax -) 400 mg GT BID [facility] Last Admin: 05/25/18 10:11 Dose: 400 mg Albuterol/Ipratropium (Duoneb -) 1 amp NEB RQID [facility] Last Admin: 05/24/18 19:55 Dose: 1 amp Baclofen (Lioresal -) 10 mg GT BID [facility] Last Admin: 05/25/18 10:10 Dose: 10 mg Clobazam (Onfi -) 5 mg GT BID [facility] Last Admin: 05/25/18 10:09 Dose: 5 mg Clonazepam (Klonopin -) 1.5 mg GT TID [facility] Last Admin: 05/25/18 05:42 Dose: 1.5 mg Heparin Sodium (Porcine) (Heparin -) 5,000 unit SQ BID [facility] Last Admin: 05/25/18 10:10 Dose: 5,000 unit Vancomycin HCl 1,250 mg/ (Dextrose) 250 mls @ 250 mls/2 hr IVPB Q24H [facility]; Protocol Last Admin: 05/25/18 13:04 Dose: 250 mls/2 hr Piperacillin Sod/Tazobactam (Sod 3.375 gm/ Dextrose) 50 mls @ 100 mls/hr IVPB Q8H-IV [facility]; Protocol Last Admin: 05/25/18 10:05 Dose: 100 mls/hr Sodium Chloride (Normal Saline -) 1,000 mls @ 100 mls/hr IV ASDIR [facility] Last Admin: 05/25/18 04:44 Dose: 100 mls/hr Ibuprofen (Motrin -) 400 mg PO Q6H PRN PRN Reason: FEVER Last Admin: 05/25/18 04:44 Dose: 400 mg Lamotrigine (Lamictal -) 200 mg GT BID [facility] Last Admin: 05/25/18 10:09 Dose: 200 mg Lorazepam (Ativan Injection -) 1 mg IVPUSH Q6H PRN PRN Reason: seizures Phenobarbital (Phenobarbital -) 45 mg GT BID [facility] Last Admin: 05/25/18 10:09 Dose: 45 mg Ranitidine HCl (Zantac Oral Solution -) 75 mg GT BID [facility] Last Admin: 05/25/18 10:05 Dose: 75 mg - Objective Vital Signs: Vital Signs Temperature 98.6 F 05/25/18 10:00 Pulse Rate 65 05/25/18 10:00 Respiratory Rate 20 05/25/18 10:00 Blood Pressure 109/59 L 05/25/18 10:00 O2 Sat by Pulse Oximetry (%) 100 05/25/18 09:00 Constitutional: Yes: No Distress, Calm Cardiovascular: Yes: S1, S2 Respiratory: Yes: On Nasal O2, Poor Air Entry Gastrointestinal: Yes: Normal Bowel Sounds, Soft Musculoskeletal: Yes: WNL Extremities: Yes: Other (ext) Neurological: Yes: Alert, Other Labs: CBC, BMP 05/25/18 06:00 05/25/18 06:00 INR, PTT INR 1.18 (0.83-1.09) H 05/23/18 00:33 Assessment/Plan Patient is a 23 year old male with PMHx of profound MR, functional quadriplegia , seizure disorder, asthma, chronic hypothermia, pneumonia with prior intubations and herpes encephalopathy. spesis pneumonia resp failure seizures plan continue abx wbc has normalized monitor for fever rest as per the team
[2018-05-25 14:25] VITALS: BMI 19.8
[2018-05-25] MEDS ORDERED: PT OWN MED DRAWER 7, Y5N ONE (19:18)
[2018-05-26] MEDS ORDERED: PIPERACILLIN/TAZOBACTAM 3.375 GM VIAL IVPB ONE ×4 (01:17→20:03)
[2018-05-26] MEDS ORDERED: DEXTROSE 5%-WATER - 50 ML IVPB ONE ×3 (01:18→17:27)
[2018-05-26] MEDS: PIPERACILLIN/TAZOB 3.375 GM 3.375 GM in DEXTROSE 5%-WATER - 50 ML IVPB SCH ×3 (01:29→17:30)
[2018-05-26] MEDS: SODIUM CHLORIDE 1,000 ML IV SCH ×2 (02:06→21:52)
[2018-05-26] MEDS: clonazePAM 0.5 MG TABLET GT SCH ×3 (06:07→22:01)
[2018-05-26] MEDS: ALBUTEROL SO4 2.5/IPRATROPIUM 0.5 INH SOL 3 ML VIAL.NEB. NEB SCH ×4 (09:04→20:16)
[2018-05-26 09:28] LABS: BASO % 0.3 % (0-2.0); EOS % 2.5 % (0-4.5); HEMATOCRIT 34.6 % (35.4-49); HEMOGLOBIN 12.2 GM/dL (11.7-16.9); LYMPH % 31.2 % (8-40); MCH 35.3 pg (25.7-33.7); MCHC 35.4 g/dl (32.0-35.9); MEAN CELL VOLUME 99.8 fl (80-96); MEAN PLT VOLUME 9.6 fl (7.5-11.1); PLATELET COUNT 231 K/MM3 (134-434); RBC 3.47 M/mm3 (4.00-5.60); RDW 15.3 % (11.9-15.9); WHITE BLOOD COUNT 7.1 K/mm3 (4.0-10.0)
[2018-05-26 10:13] LABS: ANION GAP 8 MMOL/L (8-16); BLOOD UREA NITROGEN 3 mg/dL (7-18); CALCIUM 8.2 mg/dL (8.5-10.1); CHLORIDE 108 mmol/L (98-107); CO2 28 mmol/L (21-32); CREATININE 0.4 mg/dL (0.55-1.3); GLUCOSE,RANDOM 105 mg/dL (74-106); MAGNESIUM 1.8 mg/dL (1.8-2.4); PHOSPHOROUS 3.6 mg/dL (2.5-4.9); POTASSIUM 3.3 mmol/L (3.5-5.1); SODIUM 144 mmol/L (136-145)
[2018-05-26] MEDS: HEPARIN NA (PORCINE) 5,000 UNITS/ML 1ML VIAL SQ SCH ×2 (10:18→22:00)
[2018-05-26] MEDS: BACLOFEN 10 MG TABLET (FP) GT SCH ×2 (10:18→22:01)
[2018-05-26] MEDS: IBUPROFEN 400 MG TABLET (FP) PO PRN (10:19)
[2018-05-26] MEDS: RANITIDINE HCL 150 MG/10 ML UNIT-DOSE GT SCH ×2 (10:20→22:03)
[2018-05-26] MEDS: PHENobarbital 30 MG TABLET GT SCH ×2 (10:20→22:02)
[2018-05-26] MEDS: cloBAZam 10 MG TABLET GT SCH ×2 (10:21→22:02)
[2018-05-26] MEDS: lamoTRIgine 100 MG TABLET (FP) GT SCH ×2 (10:25→22:01)
[2018-05-26] MEDS: ACYCLOVIR 400 MG TABLET GT SCH ×2 (10:25→22:03)
--- NOTE | 2018-05-26 10:25 | PN ---
Progress Note, Physician History of Present Illness: patient stable no new issues calm - Current Medication List Current Medications: Active Medications Acyclovir (Zovirax -) 400 mg GT BID [facility] Last Admin: 05/25/18 22:58 Dose: 400 mg Albuterol/Ipratropium (Duoneb -) 1 amp NEB RQID [facility] Last Admin: 05/26/18 09:04 Dose: 1 amp Baclofen (Lioresal -) 10 mg GT BID [facility] Last Admin: 05/25/18 22:57 Dose: 10 mg Clobazam (Onfi -) 5 mg GT BID [facility] Last Admin: 05/25/18 22:57 Dose: 5 mg Clonazepam (Klonopin -) 1.5 mg GT TID [facility] Last Admin: 05/26/18 06:07 Dose: 1.5 mg Heparin Sodium (Porcine) (Heparin -) 5,000 unit SQ BID [facility] Last Admin: 05/25/18 22:56 Dose: 5,000 unit Vancomycin HCl 1,250 mg/ (Dextrose) 250 mls @ 250 mls/2 hr IVPB Q24H [facility]; Protocol Last Admin: 05/25/18 13:04 Dose: 250 mls/2 hr Piperacillin Sod/Tazobactam (Sod 3.375 gm/ Dextrose) 50 mls @ 100 mls/hr IVPB Q8H-IV [facility]; Protocol Last Admin: 05/26/18 01:29 Dose: 100 mls/hr Sodium Chloride (Normal Saline -) 1,000 mls @ 100 mls/hr IV ASD[facility] Last Admin: 05/26/18 02:06 Dose: 100 mls/hr Ibuprofen (Motrin -) 400 mg PO Q6H PRN PRN Reason: FEVER Last Admin: 05/25/18 04:44 Dose: 400 mg Lamotrigine (Lamictal -) 200 mg GT BID [facility] Last Admin: 05/25/18 22:58 Dose: 200 mg Lorazepam (Ativan Injection -) 1 mg IVPUSH Q6H PRN PRN Reason: seizures Phenobarbital (Phenobarbital -) 45 mg GT BID [facility] Last Admin: 05/25/18 22:56 Dose: 45 mg Ranitidine HCl (Zantac Oral Solution -) 75 mg GT BID [facility] Last Admin: 05/25/18 22:57 Dose: 75 mg - Objective Vital Signs: Vital Signs Temperature 99.3 F 05/26/18 10:00 Pulse Rate 80 05/26/18 10:00 Respiratory Rate 16 05/26/18 10:00 Blood Pressure 96/41 L 05/26/18 10:00 O2 Sat by Pulse Oximetry (%) 99 05/25/18 21:00 Constitutional: Yes: No Distress, Calm Cardiovascular: Yes: Regular Rate and Rhythm Respiratory: Yes: Regular, CTA Bilaterally Gastrointestinal: Yes: Normal Bowel Sounds, Soft Musculoskeletal: Yes: WNL Extremities: Yes: Other (contracted) Neurological: Yes: Alert, Other Psychiatric: Yes: Other Labs: CBC, BMP 05/26/18 08:48 05/26/18 08:48 INR, PTT INR 1.18 (0.83-1.09) H 05/23/18 00:33 Assessment/Plan Patient is a 23 year old male with PMHx of profound MR, functional quadriplegia , seizure disorder, asthma, chronic hypothermia, pneumonia with prior intubations and herpes encephalopathy. spesis pneumonia resp failure seizures plan continue abx for now if patient remains stable tomorrow will consider switching to oral asp precautions nutrition rest as per the team
--- NOTE | 2018-05-26 13:04 | PN ---
Progress Note, Physician History of Present Illness: pulmonary awake,no distress,comfortable - Current Medication List Current Medications: Active Medications Acyclovir (Zovirax -) 400 mg GT BID [facility] Last Admin: 05/26/18 10:25 Dose: 400 mg Albuterol/Ipratropium (Duoneb -) 1 amp NEB RQID [facility] Last Admin: 05/26/18 12:37 Dose: 1 amp Baclofen (Lioresal -) 10 mg GT BID [facility] Last Admin: 05/26/18 10:18 Dose: 10 mg Clobazam (Onfi -) 5 mg GT BID [facility] Last Admin: 05/26/18 10:21 Dose: 5 mg Clonazepam (Klonopin -) 1.5 mg GT TID [facility] Last Admin: 05/26/18 06:07 Dose: 1.5 mg Heparin Sodium (Porcine) (Heparin -) 5,000 unit SQ BID [facility] Last Admin: 05/26/18 10:18 Dose: 5,000 unit Vancomycin HCl 1,250 mg/ (Dextrose) 250 mls @ 250 mls/2 hr IVPB Q24H [facility]; Protocol Last Admin: 05/25/18 13:04 Dose: 250 mls/2 hr Piperacillin Sod/Tazobactam (Sod 3.375 gm/ Dextrose) 50 mls @ 100 mls/hr IVPB Q8H-IV [facility]; Protocol Last Admin: 05/26/18 10:22 Dose: 100 mls/hr Sodium Chloride (Normal Saline -) 1,000 mls @ 100 mls/hr IV ASDIR [facility] Last Admin: 05/26/18 02:06 Dose: 100 mls/hr Ibuprofen (Motrin -) 400 mg PO Q6H PRN PRN Reason: FEVER Last Admin: 05/26/18 10:19 Dose: 400 mg Lamotrigine (Lamictal -) 200 mg GT BID [facility] Last Admin: 05/26/18 10:25 Dose: 200 mg Lorazepam (Ativan Injection -) 1 mg IVPUSH Q6H PRN PRN Reason: seizures Phenobarbital (Phenobarbital -) 45 mg GT BID [facility] Last Admin: 05/26/18 10:20 Dose: 45 mg Ranitidine HCl (Zantac Oral Solution -) 75 mg GT BID [facility] Last Admin: 05/26/18 10:20 Dose: 75 mg - Objective Vital Signs: Vital Signs Temperature 99.3 F 05/26/18 10:00 Pulse Rate 80 05/26/18 10:00 Respiratory Rate 16 05/26/18 10:00 Blood Pressure 96/41 L 05/26/18 10:00 O2 Sat by Pulse Oximetry (%) 99 05/25/18 21:00 Constitutional: Yes: Calm, Thin Eyes: Yes: WNL HENT: Yes: WNL Neck: Yes: WNL Cardiovascular: Yes: Regular Rate and Rhythm, S1, S2 Respiratory: Yes: Rhonchi (few rhonchi) Gastrointestinal: Yes: Normal Bowel Sounds, Soft Extremities: Yes: Other (contracted) Labs: CBC, BMP 05/26/18 08:48 05/26/18 08:48 INR, PTT INR 1.18 (0.83-1.09) H 05/23/18 00:33 Assessment/Plan A/P Pneumonia likely Aspiration Sepsis Lactic Acidosis improved Mental Retardation/Cerebral Palsy Functional Quadriplegia Seizure Disorder Asthma - antibiotics as per id - aspiration precautions - O2 to keep SpO2 >90% - trend LFTs - DVT prophylaxis Problem List - Problems (1) Pneumonia Code(s): J18.9 - PNEUMONIA, UNSPECIFIED ORGANISM (2) Sepsis Code(s): A41.9 - SEPSIS, UNSPECIFIED ORGANISM (3) Aspiration pneumonia Code(s): J69.0 - PNEUMONITIS DUE TO INHALATION OF FOOD AND VOMIT (4) Epilepsy Code(s): G40.909 - EPILEPSY, UNSP, NOT INTRACTABLE, WITHOUT STATUS EPILEPTICUS (5) Profound mental retardation Code(s): F73 - PROFOUND INTELLECTUAL DISABILITIES (6) Lactic acidosis Code(s): E87.2 - ACIDOSIS
[2018-05-26] MEDS: VANCOMYCIN 1,250 MG in DEXTROSE 5%-WATER - 250 ML IVPB SCH (15:05)
[2018-05-26] MEDS ORDERED: PT OWN MED DRAWER 7, Y5N ONE (18:05)
[2018-05-26] MEDS ORDERED: DEXTROSE 5%-WATER - 100 ML IVPB ONE (20:03)
--- NOTE | 2018-05-26 20:52 | PN ---
Progress Note, Physician History of Present Illness: 24 HR events -no acute events. pt continues to make slow steady progress. - Current Medication List Current Medications: Active Medications Acyclovir (Zovirax -) 400 mg GT BID [facility] Last Admin: 05/26/18 10:25 Dose: 400 mg Albuterol/Ipratropium (Duoneb -) 1 amp NEB RQID [facility] Last Admin: 05/26/18 20:16 Dose: 1 amp Baclofen (Lioresal -) 10 mg GT BID [facility] Last Admin: 05/26/18 10:18 Dose: 10 mg Clobazam (Onfi -) 5 mg GT BID [facility] Last Admin: 05/26/18 10:21 Dose: 5 mg Clonazepam (Klonopin -) 1.5 mg GT TID [facility] Last Admin: 05/26/18 15:06 Dose: 1.5 mg Heparin Sodium (Porcine) (Heparin -) 5,000 unit SQ BID [facility] Last Admin: 05/26/18 10:18 Dose: 5,000 unit Vancomycin HCl 1,250 mg/ (Dextrose) 250 mls @ 250 mls/2 hr IVPB Q24H [facility]; Protocol Last Admin: 05/26/18 15:05 Dose: 250 mls/2 hr Piperacillin Sod/Tazobactam (Sod 3.375 gm/ Dextrose) 50 mls @ 100 mls/hr IVPB Q8H-IV [facility]; Protocol Last Admin: 05/26/18 17:30 Dose: 100 mls/hr Sodium Chloride (Normal Saline -) 1,000 mls @ 100 mls/hr IV ASDIR [facility] Last Admin: 05/26/18 02:06 Dose: 100 mls/hr Ibuprofen (Motrin -) 400 mg PO Q6H PRN PRN Reason: FEVER Last Admin: 05/26/18 10:19 Dose: 400 mg Lamotrigine (Lamictal -) 200 mg GT BID [facility] Last Admin: 05/26/18 10:25 Dose: 200 mg Phenobarbital (Phenobarbital -) 45 mg GT BID [facility] Last Admin: 05/26/18 10:20 Dose: 45 mg Ranitidine HCl (Zantac Oral Solution -) 75 mg GT BID [facility] Last Admin: 05/26/18 10:20 Dose: 75 mg - Objective Vital Signs: Vital Signs Temperature 98.2 F 05/26/18 18:30 Pulse Rate 68 01/16/19 18:30 Respiratory Rate 18 05/26/18 18:30 Blood Pressure 103/46 L 05/26/18 18:30 O2 Sat by Pulse Oximetry (%) 99 05/26/18 09:00 Constitutional: Yes: Calm Eyes: Yes: Conjunctiva Clear HENT: Yes: Atraumatic Neck: Yes: Supple Cardiovascular: Yes: Regular Rate and Rhythm Respiratory: Yes: Diminished Gastrointestinal: Yes: Normal Bowel Sounds, Soft ...Rectal Exam: Yes: Deferred Musculoskeletal: Yes: Joint Stiffness, Muscle Weakness Extremities: Yes: Other (contracted) Edema: No Peripheral Pulses WNL: Yes Peripheral Pulses: Left Radial: 2+, Right Radial: 2+ Labs: CBC, BMP 05/26/18 08:48 05/26/18 08:48 INR, PTT INR 1.18 (0.83-1.09) H 05/23/18 00:33 Problem List - Problems (1) Pneumonia Assessment/Plan: continue with vanco/Zosyn trend WBC and fever curve Code(s): J18.9 - PNEUMONIA, UNSPECIFIED ORGANISM (2) Epilepsy Assessment/Plan: continue Clonazapam, Clobazam, phenobartital Code(s): G40.909 - EPILEPSY, UNSP, NOT INTRACTABLE, WITHOUT STATUS EPILEPTICUS (3) PEG (percutaneous endoscopic gastrostomy) status Assessment/Plan: restart jevity at 15ml/hr and titrate 10ml q6hrs for goal of 55ml/hr Code(s): Z93.1 - GASTROSTOMY STATUS (4) Chronic respiratory insufficiency Assessment/Plan: Duonebs scheduled. bipap dependent Code(s): R06.89 - OTHER ABNORMALITIES OF BREATHING Impression/Plan Impression/Plan: F.E.N. Electrolytes: monitor Nutrition:Jevity Prophylaxis: DVT: Prophylaxis: SCDs bilaterally, Lovenox 40mg daily GI Prophylaxis: Protonix 40mg Visit type - Emergency Visit Emergency Visit: Yes ED Registration Date: 05/23/18 Care time: The patient presented to the Emergency Department on the above date and was hospitalized for further evaluation of their emergent condition. - New Patient This patient is new to me today: No - Critical Care Critical Care patient: No - Discharge Referral Referred to [facility] No
[2018-05-27] MEDS ORDERED: PIPERACILLIN/TAZOBACTAM 3.375 GM VIAL IVPB ONE ×2 (01:31→10:43)
[2018-05-27] MEDS ORDERED: DEXTROSE 5%-WATER - 50 ML IVPB ONE ×2 (01:32→10:43)
[2018-05-27] MEDS: PIPERACILLIN/TAZOB 3.375 GM 3.375 GM in DEXTROSE 5%-WATER - 50 ML IVPB SCH ×2 (02:10→11:01)
[2018-05-27] MEDS: SODIUM CHLORIDE 1,000 ML IV SCH (03:24)
[2018-05-27] MEDS: clonazePAM 0.5 MG TABLET GT SCH ×3 (06:21→22:51)
[2018-05-27] MEDS: IBUPROFEN 400 MG TABLET (FP) PO PRN (06:22)
[2018-05-27] MEDS: ALBUTEROL SO4 2.5/IPRATROPIUM 0.5 INH SOL 3 ML VIAL.NEB. NEB SCH ×4 (07:26→20:07)
[2018-05-27 07:40] LABS: HEMATOCRIT 36.1 % (35.4-49); HEMOGLOBIN 12.4 GM/dL (11.7-16.9); MCH 34.9 pg (25.7-33.7); MCHC 34.3 g/dl (32.0-35.9); MEAN CELL VOLUME 101.7 fl (80-96); MEAN PLT VOLUME 9.6 fl (7.5-11.1); PLATELET COUNT 247 K/MM3 (134-434); RBC 3.55 M/mm3 (4.00-5.60); RDW 15.5 % (11.9-15.9); WHITE BLOOD COUNT 7.2 K/mm3 (4.0-10.0)
[2018-05-27 09:05] LABS: ANION GAP 9 MMOL/L (8-16); BLOOD UREA NITROGEN 3 mg/dL (7-18); CALCIUM 8.6 mg/dL (8.5-10.1); CHLORIDE 110 mmol/L (98-107); CO2 28 mmol/L (21-32); CREATININE 0.6 mg/dL (0.55-1.3); GLUCOSE,RANDOM 92 mg/dL (74-106); POTASSIUM 3.7 mmol/L (3.5-5.1); SODIUM 147 mmol/L (136-145)
[2018-05-27] MEDS ORDERED: PT OWN MED DRAWER 7, Y5N ONE (10:43)
[2018-05-27] MEDS: RANITIDINE HCL 150 MG/10 ML UNIT-DOSE GT SCH ×2 (11:01→22:50)
[2018-05-27] MEDS: PHENobarbital 30 MG TABLET GT SCH ×2 (11:02→22:51)
[2018-05-27] MEDS: cloBAZam 10 MG TABLET GT SCH ×2 (11:02→22:51)
[2018-05-27] MEDS: BACLOFEN 10 MG TABLET (FP) GT SCH ×2 (11:04→22:50)
[2018-05-27] MEDS: lamoTRIgine 100 MG TABLET (FP) GT SCH ×2 (11:04→22:52)
[2018-05-27] MEDS: ACYCLOVIR 400 MG TABLET GT SCH ×2 (11:05→22:52)
[2018-05-27] MEDS: HEPARIN NA (PORCINE) 5,000 UNITS/ML 1ML VIAL SQ SCH ×2 (11:05→22:50)
--- NOTE | 2018-05-27 11:34 | PN ---
Physical Exam: SUBJECTIVE: Patient seen and examined Remains comfortable. No acute distress.' Remains afebrile. OBJECTIVE: Vital Signs Period Temp Pulse Resp BP Sys/Linares Pulse Ox Last 24 Hr 97.0 F-99.7 F 55-76 18-18 99-107/40-48 99-99 Constitutional: Yes: Calm Eyes: Yes: Conjunctiva Clear HENT: Yes: Atraumatic Neck: Yes: Supple Cardiovascular: Yes: Regular Rate and Rhythm Respiratory: Yes: Diminished Gastrointestinal: Yes: Normal Bowel Sounds, Soft ...Rectal Exam: Yes: Deferred Musculoskeletal: Yes: Joint Stiffness, Muscle Weakness Extremities: Yes: Other (contracted) Edema: No Peripheral Pulses WNL: Yes Peripheral Pulses: Left Radial: 2+, Right Radial: 2+ Labs: Laboratory Results - last 24 hr 05/27/18 05/27/18 07:00 07:00 WBC 7.2 RBC 3.55 L Hgb 12.4 Hct 36.1 MCV 101.7 H MCH 34.9 H MCHC 34.3 RDW 15.5 Plt Count 247 MPV 9.6 Sodium 147 H Potassium 3.7 Chloride 110 H Carbon Dioxide 28 Anion Gap 9 BUN 3 L Creatinine 0.6 Creat Clearance w eGFR > 60 Random Glucose 92 Calcium 8.6 Active Medications Generic Name Dose Route Start Last Admin Trade Name Freq PRN Reason Stop Dose Admin Acyclovir 400 mg 05/23/18 22:00 05/27/18 11:05 Zovirax - GT 400 mg BID [facility] Administration Albuterol/Ipratropium 1 amp 05/23/18 20:00 05/27/18 11:25 Duoneb - NEB 1 amp RQID [facility] Administration Baclofen 10 mg 05/23/18 22:00 05/27/18 11:04 Lioresal - GT 10 mg BID [facility] Administration Clobazam 5 mg 05/23/18 22:00 05/27/18 11:02 Onfi - GT 5 mg BID [facility] Administration Clonazepam 1.5 mg 05/23/18 22:00 05/27/18 06:21 Klonopin - GT 1.5 mg TID [facility] Administration Heparin Sodium (Porcine) 5,000 unit 05/23/18 22:00 05/27/18 11:05 Heparin - SQ 5,000 unit BID [facility] Administration Vancomycin HCl 1,250 mg/ 250 mls @ 250 mls/2 hr 05/23/18 13:45 05/26/18 15:05 Dextrose IVPB 250 mls/2 hr Q24H [facility] Administration Protocol Piperacillin Sod/Tazobactam 50 mls @ 100 mls/hr 05/23/18 13:45 05/27/18 11:01 Sod 3.375 gm/ Dextrose IVPB 100 mls/hr Q8H-IV [facility] Administration Protocol Ibuprofen 400 mg 05/24/18 06:12 05/27/18 06:22 Motrin - PO 400 mg Q6H PRN Administration FEVER Lamotrigine 200 mg 05/24/18 10:00 05/27/18 11:04 Lamictal - GT 200 mg BID [facility] Administration Phenobarbital 45 mg 05/23/18 22:00 05/27/18 11:02 Phenobarbital - GT 45 mg BID [facility] Administration Ranitidine HCl 75 mg 05/23/18 22:00 05/27/18 11:01 Zantac Oral Solution - GT 75 mg BID [facility] Administration ASSESSMENT/PLAN: (1) Pneumonia Assessment/Plan: continue with vanco/Zosyn trend WBC and fever curve (2) Epilepsy Assessment/Plan: continue Clonazapam, Clobazam, phenobartital (3) PEG (percutaneous endoscopic gastrostomy) status Assessment/Plan: restart jevity at 15ml/hr and titrate 10ml q6hrs for goal of 55ml/hr (4) Chronic respiratory insufficiency Assessment/Plan: Duonebs scheduled. bipap dependent Impression/Plan Impression/Plan: F.E.N. Electrolytes: monitor Nutrition:Jevity Stopped IVF for now. Prophylaxis: DVT: Prophylaxis: SCDs bilaterally, Lovenox 40mg daily GI Prophylaxis: Protonix 40mg Plan d/w nurse at bedside. Visit type - Emergency Visit Emergency Visit: Yes ED Registration Date: 05/23/18 Care time: The patient presented to the Emergency Department on the above date and was hospitalized for further evaluation of their emergent condition. - New Patient This patient is new to me today: Yes Date on this admission: 05/27/18 - Critical Care Critical Care patient: No - Discharge Referral Referred to [facility] No
--- NOTE | 2018-05-27 11:38 | PN ---
Progress Note (short form) - Note Progress Note: PULMONARY Pt nonverbal. No fevers recorded. Vital Signs Period Temp Pulse Resp BP Sys/Linares Pulse Ox Last 24 Hr 97.0 F-99.7 F 55-76 18-18 99-107/40-48 99-99 Gen: breathing nonlabored Heart: RRR Lung: scattered rhonchi Abd: soft, nontender Ext: no edema CBC, BMP 05/27/18 07:00 05/27/18 07:00 Hepatic Panel Total Bilirubin 0.4 mg/dL (0.2-1) 05/25/18 06:00 AST 72 U/L (15-37) H 05/25/18 06:00 ALT 95 U/L (13-61) H 05/25/18 06:00 Alkaline Phosphatase 358 U/L (45-117) H 05/25/18 06:00 Albumin 2.8 g/dl (3.4-5.0) L 05/25/18 06:00 Active Medications Acyclovir (Zovirax -) 400 mg GT BID [facility] Last Admin: 05/27/18 11:05 Dose: 400 mg Albuterol/Ipratropium (Duoneb -) 1 amp NEB RQID [facility] Last Admin: 05/27/18 11:25 Dose: 1 amp Baclofen (Lioresal -) 10 mg GT BID [facility] Last Admin: 05/27/18 11:04 Dose: 10 mg Clobazam (Onfi -) 5 mg GT BID [facility] Last Admin: 05/27/18 11:02 Dose: 5 mg Clonazepam (Klonopin -) 1.5 mg GT TID [facility] Last Admin: 05/27/18 06:21 Dose: 1.5 mg Heparin Sodium (Porcine) (Heparin -) 5,000 unit SQ BID [facility] Last Admin: 05/27/18 11:05 Dose: 5,000 unit Vancomycin HCl 1,250 mg/ (Dextrose) 250 mls @ 250 mls/2 hr IVPB Q24H [facility]; Protocol Last Admin: 05/26/18 15:05 Dose: 250 mls/2 hr Piperacillin Sod/Tazobactam (Sod 3.375 gm/ Dextrose) 50 mls @ 100 mls/hr IVPB Q8H-IV [facility]; Protocol Last Admin: 05/27/18 11:01 Dose: 100 mls/hr Ibuprofen (Motrin -) 400 mg PO Q6H PRN PRN Reason: FEVER Last Admin: 05/27/18 06:22 Dose: 400 mg Lamotrigine (Lamictal -) 200 mg GT BID [facility] Last Admin: 05/27/18 11:04 Dose: 200 mg Phenobarbital (Phenobarbital -) 45 mg GT BID [facility] Last Admin: 05/27/18 11:02 Dose: 45 mg Ranitidine HCl (Zantac Oral Solution -) 75 mg GT BID [facility] Last Admin: 05/27/18 11:01 Dose: 75 mg A/P Pneumonia likely Aspiration Sepsis Lactic Acidosis Mental Retardation/Cerebral Palsy Functional Quadriplegia Seizure Disorder Asthma - continue antibiotics - aspiration precautions - O2 to keep SpO2 >90% - trend LFTs - DVT prophylaxis Problem List - Problems (1) Pneumonia Code(s): J18.9 - PNEUMONIA, UNSPECIFIED ORGANISM (2) Sepsis Code(s): A41.9 - SEPSIS, UNSPECIFIED ORGANISM (3) Aspiration pneumonia Code(s): J69.0 - PNEUMONITIS DUE TO INHALATION OF FOOD AND VOMIT (4) Epilepsy Code(s): G40.909 - EPILEPSY, UNSP, NOT INTRACTABLE, WITHOUT STATUS EPILEPTICUS (5) Profound mental retardation Code(s): F73 - PROFOUND INTELLECTUAL DISABILITIES (6) Lactic acidosis Code(s): E87.2 - ACIDOSIS
--- NOTE | 2018-05-27 14:13 | PN ---
Progress Note, Physician History of Present Illness: Pt seen and examined. Events noted. He is currently afebrile, without respiratory distress. - Current Medication List Current Medications: Active Medications Acyclovir (Zovirax -) 400 mg GT BID [facility] Last Admin: 05/27/18 11:05 Dose: 400 mg Albuterol/Ipratropium (Duoneb -) 1 amp NEB RQID [facility] Last Admin: 05/27/18 11:25 Dose: 1 amp Baclofen (Lioresal -) 10 mg GT BID [facility] Last Admin: 05/27/18 11:04 Dose: 10 mg Clobazam (Onfi -) 5 mg GT BID [facility] Last Admin: 05/27/18 11:02 Dose: 5 mg Clonazepam (Klonopin -) 1.5 mg GT TID [facility] Last Admin: 05/27/18 06:21 Dose: 1.5 mg Heparin Sodium (Porcine) (Heparin -) 5,000 unit SQ BID [facility] Last Admin: 05/27/18 11:05 Dose: 5,000 unit Vancomycin HCl 1,250 mg/ (Dextrose) 250 mls @ 250 mls/2 hr IVPB Q24H [facility]; Protocol Last Admin: 05/26/18 15:05 Dose: 250 mls/2 hr Piperacillin Sod/Tazobactam (Sod 3.375 gm/ Dextrose) 50 mls @ 100 mls/hr IVPB Q8H-IV [facility]; Protocol Last Admin: 05/27/18 11:01 Dose: 100 mls/hr Ibuprofen (Motrin -) 400 mg PO Q6H PRN PRN Reason: FEVER Last Admin: 05/27/18 06:22 Dose: 400 mg Lamotrigine (Lamictal -) 200 mg GT BID [facility] Last Admin: 05/27/18 11:04 Dose: 200 mg Phenobarbital (Phenobarbital -) 45 mg GT BID [facility] Last Admin: 05/27/18 11:02 Dose: 45 mg Ranitidine HCl (Zantac Oral Solution -) 75 mg GT BID [facility] Last Admin: 05/27/18 11:01 Dose: 75 mg - Objective Vital Signs: Vital Signs Temperature 97.0 F L 05/27/18 09:08 Pulse Rate 76 05/27/18 09:08 Respiratory Rate 18 05/27/18 09:08 Blood Pressure 107/44 L 05/27/18 09:08 O2 Sat by Pulse Oximetry (%) 99 05/27/18 09:00 Constitutional: Yes: No Distress, Other (nonverbal, quadriplegia) Cardiovascular: Yes: Regular Rate and Rhythm Respiratory: Yes: Other (poor inspiratory effort, no rhonchi) Gastrointestinal: Yes: Normal Bowel Sounds, Soft, Other (+GT) Musculoskeletal: Yes: Other (contracted) Labs: CBC, BMP 05/27/18 07:00 05/27/18 07:00 INR, PTT INR 1.18 (0.83-1.09) H 05/23/18 00:33 - ....Imaging Chest X-ray: Report Reviewed Problem List - Problems (1) Pneumonia Code(s): J18.9 - PNEUMONIA, UNSPECIFIED ORGANISM (2) Respiratory distress Code(s): R06.03 - ACUTE RESPIRATORY DISTRESS (3) Sepsis Code(s): A41.9 - SEPSIS, UNSPECIFIED ORGANISM (4) Profound mental retardation Code(s): F73 - PROFOUND INTELLECTUAL DISABILITIES (5) Seizure Code(s): R56.9 - UNSPECIFIED CONVULSIONS (6) Acute and chronic respiratory failure with hypoxia Code(s): J96.21 - ACUTE AND CHRONIC RESPIRATORY FAILURE WITH HYPOXIA Assessment/Plan Pneumonia suspected Aspiration s/p Sepsis Mental retardation/functional quadriplegia -- Pt is afebrile, without leukocytosis, without respiratory distress -- will switch to oral antibiotics -- needs close monitoring for recurrence of symptoms, aspiration precautions
[2018-05-27] MEDS: VANCOMYCIN 1,250 MG in DEXTROSE 5%-WATER - 250 ML IVPB SCH (14:18)
[2018-05-27] MEDS: AMOX TR/POT CLAV 875MG/125MG TABLETS (FP) PO SCH (17:44)
[2018-05-28] MEDS: clonazePAM 0.5 MG TABLET GT SCH ×3 (05:55→23:09)
[2018-05-28] MEDS: ALBUTEROL SO4 2.5/IPRATROPIUM 0.5 INH SOL 3 ML VIAL.NEB. NEB SCH ×4 (07:20→20:40)
[2018-05-28] MEDS: AMOX TR/POT CLAV 875MG/125MG TABLETS (FP) PO SCH ×2 (08:30→18:10)
[2018-05-28] MEDS: RANITIDINE HCL 150 MG/10 ML UNIT-DOSE GT SCH ×2 (10:59→23:09)
[2018-05-28] MEDS: PHENobarbital 30 MG TABLET GT SCH ×2 (11:00→23:09)
[2018-05-28] MEDS: cloBAZam 10 MG TABLET GT SCH ×2 (11:00→23:10)
[2018-05-28] MEDS: HEPARIN NA (PORCINE) 5,000 UNITS/ML 1ML VIAL SQ SCH ×2 (11:01→23:10)
[2018-05-28] MEDS: BACLOFEN 10 MG TABLET (FP) GT SCH ×2 (11:01→23:09)
[2018-05-28] MEDS: lamoTRIgine 100 MG TABLET (FP) GT SCH ×2 (11:02→23:10)
[2018-05-28] MEDS: ACYCLOVIR 400 MG TABLET GT SCH ×2 (11:02→23:11)
--- NOTE | 2018-05-28 13:09 | PN ---
Progress Note, Physician History of Present Illness: stable doing well no issues comfortable - Current Medication List Current Medications: Active Medications Acyclovir (Zovirax -) 400 mg GT BID [facility] Last Admin: 05/28/18 11:02 Dose: 400 mg Albuterol/Ipratropium (Duoneb -) 1 amp NEB RQID [facility] Last Admin: 05/28/18 11:40 Dose: 1 amp Amoxicillin/Clavulanate Potassium (Augmentin - 875mg Tablet) 1 tab PO BID@0800, 1730 [facility] Last Admin: 05/28/18 08:30 Dose: 1 tab Baclofen (Lioresal -) 10 mg GT BID [facility] Last Admin: 05/28/18 11:01 Dose: 10 mg Clobazam (Onfi -) 5 mg GT BID [facility] Last Admin: 05/28/18 11:00 Dose: 5 mg Clonazepam (Klonopin -) 1.5 mg GT TID [facility] Last Admin: 05/28/18 05:55 Dose: 1.5 mg Heparin Sodium (Porcine) (Heparin -) 5,000 unit SQ BID [facility] Last Admin: 05/28/18 11:01 Dose: 5,000 unit Ibuprofen (Motrin -) 400 mg PO Q6H PRN PRN Reason: FEVER Last Admin: 05/27/18 06:22 Dose: 400 mg Lamotrigine (Lamictal -) 200 mg GT BID [facility] Last Admin: 05/28/18 11:02 Dose: 200 mg Phenobarbital (Phenobarbital -) 45 mg GT BID [facility] Last Admin: 05/28/18 11:00 Dose: 45 mg Ranitidine HCl (Zantac Oral Solution -) 75 mg GT BID [facility] Last Admin: 05/28/18 10:59 Dose: 75 mg - Objective Vital Signs: Vital Signs Temperature 98.5 F 05/28/18 06:00 Pulse Rate 80 05/28/18 06:00 Respiratory Rate 20 05/28/18 06:00 Blood Pressure 106/50 L 05/28/18 06:00 O2 Sat by Pulse Oximetry (%) 99 05/27/18 21:00 Constitutional: Yes: No Distress, Calm Cardiovascular: Yes: Regular Rate and Rhythm Respiratory: Yes: Regular, On Nasal O2 Gastrointestinal: Yes: Normal Bowel Sounds, Soft, Other (feeding tube in place) Musculoskeletal: Yes: WNL Extremities: Yes: Other Labs: INR, PTT INR 1.18 (0.83-1.09) H 05/23/18 00:33 Assessment/Plan Patient is a 23 year old male with PMHx of profound MR, functional quadriplegia , seizure disorder, asthma, chronic hypothermia, pneumonia with prior intubations and herpes encephalopathy. spesis pneumonia resp failure seizures plan patient on oral abx resp support monitor rest as per the team
[2018-05-28 13:30] LABS: ANION GAP 7 MMOL/L (8-16); BLOOD UREA NITROGEN 6 mg/dL (7-18); CALCIUM 8.4 mg/dL (8.5-10.1); CHLORIDE 109 mmol/L (98-107); CO2 31 mmol/L (21-32); CREATININE 0.6 mg/dL (0.55-1.3); GLUCOSE,RANDOM 97 mg/dL (74-106); MAGNESIUM 2.1 mg/dL (1.8-2.4); POTASSIUM 3.6 mmol/L (3.5-5.1); SODIUM 147 mmol/L (136-145)
[2018-05-28 13:34] LABS: BASO % 0.7 % (0-2.0); EOS % 1.2 % (0-4.5); HEMATOCRIT 34.3 % (35.4-49); HEMOGLOBIN 11.8 GM/dL (11.7-16.9); LYMPH % 45.6 % (8-40); MCH 34.7 pg (25.7-33.7); MCHC 34.4 g/dl (32.0-35.9); MEAN CELL VOLUME 100.9 fl (80-96); MEAN PLT VOLUME 9.6 fl (7.5-11.1); MONO % 6.4 % (3.8-10.2); NEUT % 46.1 % (42.8-82.8); PLATELET COUNT 240 K/MM3 (134-434); RDW 15.2 % (11.9-15.9); WHITE BLOOD COUNT 6.3 K/mm3 (4.0-10.0)
--- NOTE | 2018-05-28 14:22 | PN ---
Progress Note, Physician History of Present Illness: pulmonary alert,no distress,-sob,less congestion - Current Medication List Current Medications: Active Medications Acyclovir (Zovirax -) 400 mg GT BID [facility] Last Admin: 05/28/18 11:02 Dose: 400 mg Albuterol/Ipratropium (Duoneb -) 1 amp NEB RQID [facility] Last Admin: 05/28/18 11:40 Dose: 1 amp Amoxicillin/Clavulanate Potassium (Augmentin - 875mg Tablet) 1 tab PO BID@0800, 1730 [facility] Last Admin: 05/28/18 08:30 Dose: 1 tab Baclofen (Lioresal -) 10 mg GT BID [facility] Last Admin: 05/28/18 11:01 Dose: 10 mg Clobazam (Onfi -) 5 mg GT BID [facility] Last Admin: 05/28/18 11:00 Dose: 5 mg Clonazepam (Klonopin -) 1.5 mg GT TID [facility] Last Admin: 05/28/18 05:55 Dose: 1.5 mg Heparin Sodium (Porcine) (Heparin -) 5,000 unit SQ BID [facility] Last Admin: 05/28/18 11:01 Dose: 5,000 unit Ibuprofen (Motrin -) 400 mg PO Q6H PRN PRN Reason: FEVER Last Admin: 05/27/18 06:22 Dose: 400 mg Lamotrigine (Lamictal -) 200 mg GT BID [facility] Last Admin: 05/28/18 11:02 Dose: 200 mg Phenobarbital (Phenobarbital -) 45 mg GT BID [facility] Last Admin: 05/28/18 11:00 Dose: 45 mg Ranitidine HCl (Zantac Oral Solution -) 75 mg GT BID [facility] Last Admin: 05/28/18 10:59 Dose: 75 mg - Objective Vital Signs: Vital Signs Temperature 98.5 F 05/28/18 06:00 Pulse Rate 80 05/28/18 06:00 Respiratory Rate 20 05/28/18 06:00 Blood Pressure 106/50 L 05/28/18 06:00 O2 Sat by Pulse Oximetry (%) 99 05/27/18 21:00 Constitutional: Yes: Calm, Thin Eyes: Yes: WNL HENT: Yes: WNL Neck: Yes: WNL Cardiovascular: Yes: Regular Rate and Rhythm, S1, S2 Respiratory: Yes: Rhonchi (few rhonchi) Gastrointestinal: Yes: Normal Bowel Sounds, Soft Extremities: Yes: Other (contracted) Edema: No Labs: CBC, BMP 05/28/18 12:30 05/28/18 12:30 INR, PTT INR 1.18 (0.83-1.09) H 05/23/18 00:33 Assessment/Plan A/P Pneumonia likely Aspiration Sepsis Lactic Acidosis improved Mental Retardation/Cerebral Palsy Functional Quadriplegia Seizure Disorder Asthma - antibiotics as per id - aspiration precautions - O2 to keep SpO2 >90% - trend LFTs - DVT prophylaxis Problem List - Problems (1) Pneumonia Code(s): J18.9 - PNEUMONIA, UNSPECIFIED ORGANISM (2) Sepsis Code(s): A41.9 - SEPSIS, UNSPECIFIED ORGANISM (3) Aspiration pneumonia Code(s): J69.0 - PNEUMONITIS DUE TO INHALATION OF FOOD AND VOMIT (4) Epilepsy Code(s): G40.909 - EPILEPSY, UNSP, NOT INTRACTABLE, WITHOUT STATUS EPILEPTICUS (5) Profound mental retardation Code(s): F73 - PROFOUND INTELLECTUAL DISABILITIES (6) Lactic acidosis Code(s): E87.2 - ACIDOSIS
[2018-05-28] MEDS ORDERED: OXYMETAZOLINE 0.05% NASAL SOLUTION 15 ML BOTTLE NS ONE (16:54)
--- NOTE | 2018-05-28 17:15 | RAPID ---
Physical Examination Vital Signs: Vital Signs Temperature 98.7 F 05/28/18 15:39 Pulse Rate 95 H 05/28/18 15:39 Respiratory Rate 20 05/28/18 15:39 Blood Pressure 101/47 L 05/28/18 15:39 O2 Sat by Pulse Oximetry (%) 95 05/28/18 09:00 Labs: CBC, BMP 05/28/18 12:30 05/28/18 12:30 Rapid Response - Rapid Response Assessment: Rapid response called at 4:49pm. Team arrived. As per nursing, patient was having epistaxis on his left nostril. VS: BP 94/42 [place] 76, O2 sat 94% General: awake, alert, not in distress HEENT: +bleeding from left nostril, scant blood in the mouth Afrin spray once on each nostril. Anterior rhino rocket applied Blood in the mouth suctioned CBC, BMP
[2018-05-28 18:14] LABS: BASO % 0.5 % (0-2.0); HEMATOCRIT 36.6 % (35.4-49); HEMOGLOBIN 12.7 GM/dL (11.7-16.9); LYMPH % 41.7 % (8-40); MCH 34.9 pg (25.7-33.7); MCHC 34.7 g/dl (32.0-35.9); MEAN CELL VOLUME 100.6 fl (80-96); MEAN PLT VOLUME 9.2 fl (7.5-11.1); MONO % 6.6 % (3.8-10.2); NEUT % 50.2 % (42.8-82.8); PLATELET COUNT 285 K/MM3 (134-434); RBC 3.64 M/mm3 (4.00-5.60); RDW 15.3 % (11.9-15.9); WHITE BLOOD COUNT 7.7 K/mm3 (4.0-10.0)
[2018-05-28 18:17] LABS: ANION GAP 9 MMOL/L (8-16); BLOOD UREA NITROGEN 6 mg/dL (7-18); CALCIUM 9.1 mg/dL (8.5-10.1); CHLORIDE 107 mmol/L (98-107); CO2 30 mmol/L (21-32); CREATININE 0.7 mg/dL (0.55-1.3); GLUCOSE,RANDOM 107 mg/dL (74-106); POTASSIUM 3.9 mmol/L (3.5-5.1); SODIUM 146 mmol/L (136-145)
[2018-05-29] MEDS: clonazePAM 0.5 MG TABLET GT SCH ×3 (06:18→22:25)
[2018-05-29] MEDS: ALBUTEROL SO4 2.5/IPRATROPIUM 0.5 INH SOL 3 ML VIAL.NEB. NEB SCH ×4 (08:11→21:35)
[2018-05-29] MEDS ORDERED: PT OWN MED DRAWER 7, Y5N ONE ×3 (09:08→17:13)
[2018-05-29] MEDS: AMOX TR/POT CLAV 875MG/125MG TABLETS (FP) PO SCH ×2 (09:37→17:52)
[2018-05-29] MEDS: HEPARIN NA (PORCINE) 5,000 UNITS/ML 1ML VIAL SQ SCH ×2 (09:38→22:23)
[2018-05-29] MEDS: lamoTRIgine 100 MG TABLET (FP) GT SCH ×2 (09:40→22:43)
[2018-05-29] MEDS: RANITIDINE HCL 150 MG/10 ML UNIT-DOSE GT SCH ×2 (09:40→22:28)
[2018-05-29] MEDS: cloBAZam 10 MG TABLET GT SCH ×2 (09:41→22:44)
[2018-05-29] MEDS: PHENobarbital 30 MG TABLET GT SCH ×2 (09:44→22:26)
[2018-05-29] MEDS: BACLOFEN 10 MG TABLET (FP) GT SCH ×2 (09:45→22:28)
[2018-05-29] MEDS: ACYCLOVIR 400 MG TABLET GT SCH ×2 (09:45→22:43)
--- NOTE | 2018-05-29 12:34 | PN ---
Progress Note, Physician History of Present Illness: Events noted. S/P epistaxis yesterday, no current bleed noted. Pt afebrile, without respiratory distress. - Current Medication List Current Medications: Active Medications Acyclovir (Zovirax -) 400 mg GT BID [facility] Last Admin: 05/29/18 09:45 Dose: 400 mg Albuterol/Ipratropium (Duoneb -) 1 amp NEB RQID [facility] Last Admin: 05/29/18 12:26 Dose: 1 amp Amoxicillin/Clavulanate Potassium (Augmentin - 875mg Tablet) 1 tab PO BID@0800, 1730 [facility] Last Admin: 05/29/18 09:37 Dose: 1 tab Baclofen (Lioresal -) 10 mg GT BID [facility] Last Admin: 05/29/18 09:45 Dose: 10 mg Clobazam (Onfi -) 5 mg GT BID [facility] Last Admin: 05/29/18 09:41 Dose: 5 mg Clonazepam (Klonopin -) 1.5 mg GT TID [facility] Last Admin: 05/29/18 06:18 Dose: 1.5 mg Heparin Sodium (Porcine) (Heparin -) 5,000 unit SQ BID [facility] Last Admin: 05/29/18 09:38 Dose: Not Given Ibuprofen (Motrin -) 400 mg PO Q6H PRN PRN Reason: FEVER Last Admin: 05/27/18 06:22 Dose: 400 mg Lamotrigine (Lamictal -) 200 mg GT BID [facility] Last Admin: 05/29/18 09:40 Dose: 200 mg Phenobarbital (Phenobarbital -) 45 mg GT BID [facility] Last Admin: 05/29/18 09:44 Dose: 45 mg Ranitidine HCl (Zantac Oral Solution -) 75 mg GT BID [facility] Last Admin: 05/29/18 09:40 Dose: 75 mg - Objective Vital Signs: Vital Signs Temperature 98.0 F 05/29/18 09:25 Pulse Rate 101 H 05/29/18 09:25 Respiratory Rate 19 05/29/18 09:25 Blood Pressure 100/50 L 05/29/18 09:25 O2 Sat by Pulse Oximetry (%) 95 05/28/18 21:00 Constitutional: Yes: No Distress Cardiovascular: Yes: Tachycardia Respiratory: Yes: Rhonchi (scattered) Gastrointestinal: Yes: Normal Bowel Sounds, Soft, Other (GT) Neurological: Yes: Other (nonverbal) Labs: CBC, BMP 05/28/18 16:53 05/28/18 16:54 INR, PTT INR 1.18 (0.83-1.09) H 05/23/18 00:33 Problem List - Problems (1) Pneumonia Code(s): J18.9 - PNEUMONIA, UNSPECIFIED ORGANISM (2) Respiratory distress Code(s): R06.03 - ACUTE RESPIRATORY DISTRESS (3) Sepsis Code(s): A41.9 - SEPSIS, UNSPECIFIED ORGANISM (4) Profound mental retardation Code(s): F73 - PROFOUND INTELLECTUAL DISABILITIES (5) Seizure Code(s): R56.9 - UNSPECIFIED CONVULSIONS (6) Acute and chronic respiratory failure with hypoxia Code(s): J96.21 - ACUTE AND CHRONIC RESPIRATORY FAILURE WITH HYPOXIA Assessment/Plan Pneumonia suspected Aspiration s/p Sepsis Mental retardation/functional quadriplegia -- continue Antibiotics via GT -- Aspiration precautions monitor vitals
--- NOTE | 2018-05-29 13:39 | PN ---
Progress Note (short form) - Note Progress Note: PULMONARY Pt nonverbal. No fevers recorded. Vital Signs Period Temp Pulse Resp BP Sys/Linares Pulse Ox Last 24 Hr 97.3 F-98.7 F 69-101 18-20 90-139/42-90 95 Gen: breathing nonlabored Heart: RRR Lung: scattered rhonchi Abd: soft, nontender Ext: no edema CBC, BMP 05/28/18 16:53 05/28/18 16:54 Hepatic Panel Total Bilirubin 0.4 mg/dL (0.2-1) 05/25/18 06:00 AST 72 U/L (15-37) H 05/25/18 06:00 ALT 95 U/L (13-61) H 05/25/18 06:00 Alkaline Phosphatase 358 U/L (45-117) H 05/25/18 06:00 Albumin 2.8 g/dl (3.4-5.0) L 05/25/18 06:00 Active Medications Acyclovir (Zovirax -) 400 mg GT BID [facility] Last Admin: 05/29/18 09:45 Dose: 400 mg Albuterol/Ipratropium (Duoneb -) 1 amp NEB RQID [facility] Last Admin: 05/29/18 12:26 Dose: 1 amp Amoxicillin/Clavulanate Potassium (Augmentin - 875mg Tablet) 1 tab PO BID@0800, 1730 [facility] Last Admin: 05/29/18 09:37 Dose: 1 tab Baclofen (Lioresal -) 10 mg GT BID [facility] Last Admin: 05/29/18 09:45 Dose: 10 mg Clobazam (Onfi -) 5 mg GT BID [facility] Last Admin: 05/29/18 09:41 Dose: 5 mg Clonazepam (Klonopin -) 1.5 mg GT TID [facility] Last Admin: 05/29/18 06:18 Dose: 1.5 mg Heparin Sodium (Porcine) (Heparin -) 5,000 unit SQ BID [facility] Last Admin: 05/29/18 09:38 Dose: Not Given Ibuprofen (Motrin -) 400 mg PO Q6H PRN PRN Reason: FEVER Last Admin: 05/27/18 06:22 Dose: 400 mg Lamotrigine (Lamictal -) 200 mg GT BID [facility] Last Admin: 01/19/19 09:40 Dose: 200 mg Phenobarbital (Phenobarbital -) 45 mg GT BID [facility] Last Admin: 05/29/18 09:44 Dose: 45 mg Ranitidine HCl (Zantac Oral Solution -) 75 mg GT BID [facility] Last Admin: 05/29/18 09:40 Dose: 75 mg A/P Pneumonia likely Aspiration Sepsis Lactic Acidosis Mental Retardation/Cerebral Palsy Functional Quadriplegia Seizure Disorder Asthma - continue antibiotics - aspiration precautions - O2 to keep SpO2 >90% - trend LFTs - DVT prophylaxis Problem List - Problems (1) Pneumonia Code(s): J18.9 - PNEUMONIA, UNSPECIFIED ORGANISM (2) Sepsis Code(s): A41.9 - SEPSIS, UNSPECIFIED ORGANISM (3) Aspiration pneumonia Code(s): J69.0 - PNEUMONITIS DUE TO INHALATION OF FOOD AND VOMIT (4) Epilepsy Code(s): G40.909 - EPILEPSY, UNSP, NOT INTRACTABLE, WITHOUT STATUS EPILEPTICUS (5) Profound mental retardation Code(s): F73 - PROFOUND INTELLECTUAL DISABILITIES (6) Lactic acidosis Code(s): E87.2 - ACIDOSIS
[2018-05-30] MEDS: clonazePAM 0.5 MG TABLET GT SCH ×3 (06:10→22:05)
--- NOTE | 2018-05-30 07:40 | PN ---
Progress Note (short form) - Note Progress Note: Note pt was seen on Thursday on 05/29/18 but note was not written this is the note today this note for 05/29/2018 pt had nasal bleeding a night before and nurse c/o that he had 2 small clots coughed up on thursday he has no stress no fever or sob no change in mental status vs Bp 122/85 hr 88 afibrile heent he has dry nose in his left nares lungs clear heart no change ext no edema labs CBC, BMP 05/28/18 16:53 05/28/18 16:54 Pneumonia likely Aspiration getting better Sepsis better Lactic Acidosis better Mental Retardation/Cerebral Palsy Functional Quadriplegia Seizure Disorder Asthma epistaxsis - continue antibiotics - aspiration precautions - his hemoglobin is stable Current Medications Acyclovir (Zovirax -) 400 mg GT BID [facility] Last Admin: 05/29/18 22:43 Dose: 400 mg Albuterol/Ipratropium (Duoneb -) 1 amp NEB RQID [facility] Last Admin: 05/29/18 21:35 Dose: 1 amp Amoxicillin/Clavulanate Potassium (Augmentin - 875mg Tablet) 1 tab PO BID@0800, 1730 [facility] Last Admin: 05/29/18 17:52 Dose: 1 tab Baclofen (Lioresal -) 10 mg GT BID [facility] Last Admin: 05/29/18 22:28 Dose: 10 mg Clobazam (Onfi -) 5 mg GT BID [facility] Last Admin: 05/29/18 22:44 Dose: 5 mg Clonazepam (Klonopin -) 1.5 mg GT TID [facility] Last Admin: 05/30/18 06:10 Dose: 1.5 mg Heparin Sodium (Porcine) (Heparin -) 5,000 unit SQ BID [facility] Last Admin: 05/29/18 22:23 Dose: 5,000 unit Ibuprofen (Motrin -) 400 mg PO Q6H PRN PRN Reason: FEVER Last Admin: 05/27/18 06:22 Dose: 400 mg Lamotrigine (Lamictal -) 200 mg GT BID [facility] Last Admin: 05/29/18 22:43 Dose: 200 mg Phenobarbital (Phenobarbital -) 45 mg GT BID [facility] Last Admin: 05/29/18 22:26 Dose: 45 mg Ranitidine HCl (Zantac Oral Solution -) 75 mg GT BID [facility] Last Admin: 05/29/18 22:28 Dose: 75 mg
[2018-05-30] MEDS: ALBUTEROL SO4 2.5/IPRATROPIUM 0.5 INH SOL 3 ML VIAL.NEB. NEB SCH ×4 (08:25→20:58)
[2018-05-30] MEDS: AMOX TR/POT CLAV 875MG/125MG TABLETS (FP) PO SCH ×2 (08:41→18:32)
[2018-05-30] MEDS ORDERED: PT OWN MED DRAWER 7, Y5N ONE (10:13)
[2018-05-30] MEDS: HEPARIN NA (PORCINE) 5,000 UNITS/ML 1ML VIAL SQ SCH ×2 (10:24→22:03)
[2018-05-30] MEDS: lamoTRIgine 100 MG TABLET (FP) GT SCH ×2 (10:24→22:05)
[2018-05-30] MEDS: ACYCLOVIR 400 MG TABLET GT SCH ×2 (10:24→22:06)
[2018-05-30] MEDS: PHENobarbital 30 MG TABLET GT SCH ×2 (10:25→22:07)
[2018-05-30] MEDS: cloBAZam 10 MG TABLET GT SCH ×2 (10:25→22:07)
[2018-05-30] MEDS: BACLOFEN 10 MG TABLET (FP) GT SCH ×2 (10:27→22:05)
[2018-05-30] MEDS: RANITIDINE HCL 150 MG/10 ML UNIT-DOSE GT SCH ×2 (10:28→22:04)
--- NOTE | 2018-05-30 11:37 | PN ---
Progress Note (short form) - Note Progress Note: PULMONARY Pt nonverbal. No fevers recorded. Vital Signs Period Temp Pulse Resp BP Sys/Linares Pulse Ox Last 24 Hr 97.7 F-99.8 F 95-114 18-20 95-122/43-65 96 Gen: breathing nonlabored Heart: RRR Lung: scattered rhonchi Abd: soft, nontender Ext: no edema CBC, BMP 05/28/18 16:53 05/28/18 16:54 Hepatic Panel Total Bilirubin 0.4 mg/dL (0.2-1) 05/25/18 06:00 AST 72 U/L (15-37) H 05/25/18 06:00 ALT 95 U/L (13-61) H 05/25/18 06:00 Alkaline Phosphatase 358 U/L (45-117) H 05/25/18 06:00 Albumin 2.8 g/dl (3.4-5.0) L 05/25/18 06:00 Active Medications Acyclovir (Zovirax -) 400 mg GT BID [facility] Last Admin: 05/30/18 10:24 Dose: 400 mg Albuterol/Ipratropium (Duoneb -) 1 amp NEB RQID [facility] Last Admin: 05/30/18 08:25 Dose: 1 amp Amoxicillin/Clavulanate Potassium (Augmentin - 875mg Tablet) 1 tab PO BID@0800, 1730 [facility] Last Admin: 05/30/18 08:41 Dose: 1 tab Baclofen (Lioresal -) 10 mg GT BID [facility] Last Admin: 05/30/18 10:27 Dose: 10 mg Clobazam (Onfi -) 5 mg GT BID [facility] Last Admin: 05/30/18 10:25 Dose: 5 mg Clonazepam (Klonopin -) 1.5 mg GT TID [facility] Last Admin: 05/30/18 06:10 Dose: 1.5 mg Heparin Sodium (Porcine) (Heparin -) 5,000 unit SQ BID [facility] Last Admin: 05/30/18 10:24 Dose: 5,000 unit Ibuprofen (Motrin -) 400 mg PO Q6H PRN PRN Reason: FEVER Last Admin: 05/27/18 06:22 Dose: 400 mg Lamotrigine (Lamictal -) 200 mg GT BID [facility] Last Admin: 05/30/18 10:24 Dose: 200 mg Phenobarbital (Phenobarbital -) 45 mg GT BID [facility] Last Admin: 05/30/18 10:25 Dose: 45 mg Ranitidine HCl (Zantac Oral Solution -) 75 mg GT BID [facility] Last Admin: 05/30/18 10:28 Dose: 75 mg A/P Pneumonia likely Aspiration Sepsis Lactic Acidosis Mental Retardation/Cerebral Palsy Functional Quadriplegia Seizure Disorder Asthma - continue antibiotics - aspiration precautions - O2 to keep SpO2 >90% - trend LFTs - DVT prophylaxis Problem List - Problems (1) Pneumonia Code(s): J18.9 - PNEUMONIA, UNSPECIFIED ORGANISM (2) Sepsis Code(s): A41.9 - SEPSIS, UNSPECIFIED ORGANISM (3) Aspiration pneumonia Code(s): J69.0 - PNEUMONITIS DUE TO INHALATION OF FOOD AND VOMIT (4) Epilepsy Code(s): G40.909 - EPILEPSY, UNSP, NOT INTRACTABLE, WITHOUT STATUS EPILEPTICUS (5) Profound mental retardation Code(s): F73 - PROFOUND INTELLECTUAL DISABILITIES (6) Lactic acidosis Code(s): E87.2 - ACIDOSIS
--- NOTE | 2018-05-30 12:03 | PN ---
Physical Exam: SUBJECTIVE: Patient seen and examined he has no nose bleeding and no fever or chills no distres and he is afibrile OBJECTIVE: Vital Signs Period Temp Pulse Resp BP Sys/Linares Pulse Ox Last 24 Hr 97.7 F-99.8 F 95-114 18-20 95-122/43-65 96 GENERAL: The patient is awake, alert, in no acute distress. HEAD: Normal with no signs of trauma. EYES: PERRL, extraocular movements intact, sclera anicteric, conjunctiva clear. No ptosis. ENT: Ears normal, nares patent, oropharynx clear without exudates, moist mucous membranes. NECK: Trachea midline, full range of motion, supple. LUNGS: Breath sounds equal, clear to auscultation bilaterally, no wheezes, no crackles, no accessory muscle use. HEART: Regular rate and rhythm, S1, S2 without murmur, rub or gallop. ABDOMEN: Soft, nontender, nondistended, normoactive bowel sounds, no guarding, no rebound, no hepatosplenomegaly, no masses. EXTREMITIES: 2+ pulses, warm, well-perfused, no edema. NEUROLOGICAL: no change from yesterday Active Medications Generic Name Dose Route Start Last Admin Trade Name Freq PRN Reason Stop Dose Admin Acyclovir 400 mg 05/23/18 22:00 05/30/18 10:24 Zovirax - GT 400 mg BID [facility] Administration Albuterol/Ipratropium 1 amp 05/23/18 20:00 05/30/18 11:48 Duoneb - NEB 1 amp RQID [facility] Administration Amoxicillin/Clavulanate Potassium 1 tab 05/27/18 17:30 05/30/18 08:41 Augmentin - 875mg Tablet PO 1 tab BID@0800,1730 [facility] Administration Baclofen 10 mg 05/23/18 22:00 05/30/18 10:27 Lioresal - GT 10 mg BID [facility] Administration Clobazam 5 mg 05/23/18 22:00 05/30/18 10:25 Onfi - GT 5 mg BID [facility] Administration Clonazepam 1.5 mg 05/23/18 22:00 05/30/18 06:10 Klonopin - GT 1.5 mg TID [facility] Administration Heparin Sodium (Porcine) 5,000 unit 05/23/18 22:00 05/30/18 10:24 Heparin - SQ 5,000 unit BID [facility] Administration Ibuprofen 400 mg 05/24/18 06:12 05/27/18 06:22 Motrin - PO 400 mg Q6H PRN Administration FEVER Lamotrigine 200 mg 05/24/18 10:00 05/30/18 10:24 Lamictal - GT 200 mg BID [facility] Administration Phenobarbital 45 mg 05/23/18 22:00 05/30/18 10:25 Phenobarbital - GT 45 mg BID [facility] Administration Ranitidine HCl 75 mg 05/23/18 22:00 05/30/18 10:28 Zantac Oral Solution - GT 75 mg BID [facility] Administration ASSESSMENT/PLAN: Pneumonia likely Aspiration getting better Sepsis better Lactic Acidosis better Mental Retardation/Cerebral Palsy Functional Quadriplegia Seizure Disorder Asthma epistaxsis - continue antibiotics - aspiration precautions - his hemoglobin is stable d/w pillowcase turner for discharge planning resume feeding via peg full dose
--- NOTE | 2018-05-30 15:27 | PN ---
Progress Note, Physician History of Present Illness: Pt is alert today, without respiratory distress. Temp of 99.8F this morning but afebrile since. - Current Medication List Current Medications: Active Medications Acyclovir (Zovirax -) 400 mg GT BID [facility] Last Admin: 05/30/18 10:24 Dose: 400 mg Albuterol/Ipratropium (Duoneb -) 1 amp NEB RQID [facility] Last Admin: 05/30/18 11:48 Dose: 1 amp Amoxicillin/Clavulanate Potassium (Augmentin - 875mg Tablet) 1 tab PO BID@0800, 1730 [facility] Last Admin: 05/30/18 08:41 Dose: 1 tab Baclofen (Lioresal -) 10 mg GT BID [facility] Last Admin: 05/30/18 10:27 Dose: 10 mg Clobazam (Onfi -) 5 mg GT BID [facility] Last Admin: 05/30/18 10:25 Dose: 5 mg Clonazepam (Klonopin -) 1.5 mg GT TID [facility] Last Admin: 05/30/18 14:45 Dose: 1.5 mg Heparin Sodium (Porcine) (Heparin -) 5,000 unit SQ BID [facility] Last Admin: 05/30/18 10:24 Dose: 5,000 unit Ibuprofen (Motrin -) 400 mg PO Q6H PRN PRN Reason: FEVER Last Admin: 05/27/18 06:22 Dose: 400 mg Lamotrigine (Lamictal -) 200 mg GT BID [facility] Last Admin: 05/30/18 10:24 Dose: 200 mg Phenobarbital (Phenobarbital -) 45 mg GT BID [facility] Last Admin: 05/30/18 10:25 Dose: 45 mg Ranitidine HCl (Zantac Oral Solution -) 75 mg GT BID [facility] Last Admin: 05/30/18 10:28 Dose: 75 mg - Objective Vital Signs: Vital Signs Temperature 98.4 F 05/30/18 13:52 Pulse Rate 97 H 05/30/18 13:52 Respiratory Rate 22 H 05/30/18 13:52 Blood Pressure 124/49 L 05/30/18 13:52 O2 Sat by Pulse Oximetry (%) 96 05/29/18 21:00 Constitutional: Yes: No Distress, Calm Cardiovascular: Yes: Regular Rate and Rhythm Respiratory: Yes: CTA Bilaterally Gastrointestinal: Yes: Normal Bowel Sounds, Soft, Other (GT) Labs: CBC, BMP 05/28/18 16:53 05/28/18 16:54 INR, PTT INR 1.18 (0.83-1.09) H 05/23/18 00:33 Problem List - Problems (1) Pneumonia Code(s): J18.9 - PNEUMONIA, UNSPECIFIED ORGANISM (2) Respiratory distress Code(s): R06.03 - ACUTE RESPIRATORY DISTRESS (3) Sepsis Code(s): A41.9 - SEPSIS, UNSPECIFIED ORGANISM (4) Profound mental retardation Code(s): F73 - PROFOUND INTELLECTUAL DISABILITIES (5) Seizure Code(s): R56.9 - UNSPECIFIED CONVULSIONS (6) Acute and chronic respiratory failure with hypoxia Code(s): J96.21 - ACUTE AND CHRONIC RESPIRATORY FAILURE WITH HYPOXIA Assessment/Plan Pneumonia suspected Aspiration s/p Sepsis Mental retardation/functional quadriplegia Pt with low grade fever this a.m, otherwise stable -- continue Antibiotics via GT x 2 more days -- Aspiration precautions -- monitor temp trend
[2018-05-31] MEDS: clonazePAM 0.5 MG TABLET GT SCH ×2 (05:42→15:00)
[2018-05-31] MEDS: ALBUTEROL SO4 2.5/IPRATROPIUM 0.5 INH SOL 3 ML VIAL.NEB. NEB SCH ×3 (07:25→15:53)
[2018-05-31] MEDS ORDERED: PT OWN MED DRAWER 7, Y5N ONE (10:39)
--- NOTE | 2018-05-31 10:47 | PN ---
Progress Note (short form) - Note Progress Note: NAD. Patient nonverbal. No fevers recorded. Intake & Output 05/28/18 05/29/18 05/30/18 05/31/18 23:59 23:59 23:59 23:59 Intake Total 2440 3800 3660 1840 Output Total 1700 2000 2400 1000 Balance 740 1800 1260 840 Last Vital Signs Temp Pulse Resp BP Pulse Ox 98.8 F 73 19 108/69 98 05/31/18 10:30 05/31/18 10:30 05/31/18 10:30 05/31/18 10:30 05/30/18 21:00 Active Medications Acyclovir (Zovirax -) 400 mg GT BID [facility] Last Admin: 05/30/18 22:06 Dose: 400 mg Albuterol/Ipratropium (Duoneb -) 1 amp NEB RQID [facility] Last Admin: 05/31/18 07:25 Dose: 1 amp Amoxicillin/Clavulanate Potassium (Augmentin - 875mg Tablet) 1 tab PO BID@0800, 1730 [facility] Last Admin: 05/30/18 18:32 Dose: 1 tab Baclofen (Lioresal -) 10 mg GT BID [facility] Last Admin: 05/30/18 22:05 Dose: 10 mg Clobazam (Onfi -) 5 mg GT BID [facility] Last Admin: 05/30/18 22:07 Dose: 5 mg Clonazepam (Klonopin -) 1.5 mg GT TID [facility] Last Admin: 05/31/18 05:42 Dose: 1.5 mg Heparin Sodium (Porcine) (Heparin -) 5,000 unit SQ BID [facility] Last Admin: 05/30/18 22:03 Dose: 5,000 unit Ibuprofen (Motrin -) 400 mg PO Q6H PRN PRN Reason: FEVER Last Admin: 05/27/18 06:22 Dose: 400 mg Lamotrigine (Lamictal -) 200 mg GT BID [facility] Last Admin: 05/30/18 22:05 Dose: 200 mg Phenobarbital (Phenobarbital -) 45 mg GT BID [facility] Last Admin: 05/30/18 22:07 Dose: 45 mg Ranitidine HCl (Zantac Oral Solution -) 75 mg GT BID [facility] Last Admin: 05/30/18 22:04 Dose: 75 mg Problem List Gen: breathing nonlabored Heart: RRR Lung: scattered rhonchi Abd: soft, nontender Ext: no edema - Problems (1) Pneumonia Code(s): J18.9 - PNEUMONIA, UNSPECIFIED ORGANISM (2) Sepsis Code(s): A41.9 - SEPSIS, UNSPECIFIED ORGANISM (3) Aspiration pneumonia Code(s): J69.0 - PNEUMONITIS DUE TO INHALATION OF FOOD AND VOMIT (4) Epilepsy Code(s): G40.909 - EPILEPSY, UNSP, NOT INTRACTABLE, WITHOUT STATUS EPILEPTICUS (5) Profound mental retardation Code(s): F73 - PROFOUND INTELLECTUAL DISABILITIES (6) Lactic acidosis Code(s): E87.2 - ACIDOSIS A/P Pneumonia likely Aspiration Sepsis Lactic Acidosis Mental Retardation/Cerebral Palsy Functional Quadriplegia Seizure Disorder Asthma - Augmentin - aspiration precautions - O2 to keep SpO2 >90% - DVT prophylaxis - D/C planning Dr Price
[2018-05-31] MEDS: AMOX TR/POT CLAV 875MG/125MG TABLETS (FP) PO SCH (10:51)
[2018-05-31] MEDS: lamoTRIgine 100 MG TABLET (FP) GT SCH (10:51)
[2018-05-31] MEDS: BACLOFEN 10 MG TABLET (FP) GT SCH (10:51)
[2018-05-31] MEDS: HEPARIN NA (PORCINE) 5,000 UNITS/ML 1ML VIAL SQ SCH (10:51)
[2018-05-31] MEDS: PHENobarbital 30 MG TABLET GT SCH (10:51)
[2018-05-31] MEDS: RANITIDINE HCL 150 MG/10 ML UNIT-DOSE GT SCH (10:51)
[2018-05-31] MEDS: ACYCLOVIR 400 MG TABLET GT SCH (10:52)
[2018-05-31] MEDS: cloBAZam 10 MG TABLET GT SCH (10:52)
--- NOTE | 2018-05-31 14:13 | PN ---
Progress Note, Physician History of Present Illness: stable no new issues afebrile - Current Medication List Current Medications: Active Medications Acyclovir (Zovirax -) 400 mg GT BID [facility] Last Admin: 05/31/18 10:52 Dose: 400 mg Albuterol/Ipratropium (Duoneb -) 1 amp NEB RQID [facility] Last Admin: 05/31/18 11:30 Dose: 1 amp Amoxicillin/Clavulanate Potassium (Augmentin - 875mg Tablet) 1 tab PO BID@0800, 1730 [facility] Last Admin: 05/31/18 10:51 Dose: 1 tab Baclofen (Lioresal -) 10 mg GT BID [facility] Last Admin: 05/31/18 10:51 Dose: 10 mg Clobazam (Onfi -) 5 mg GT BID [facility] Last Admin: 05/31/18 10:52 Dose: 5 mg Clonazepam (Klonopin -) 1.5 mg GT TID [facility] Last Admin: 05/31/18 05:42 Dose: 1.5 mg Heparin Sodium (Porcine) (Heparin -) 5,000 unit SQ BID [facility] Last Admin: 05/31/18 10:51 Dose: 5,000 unit Ibuprofen (Motrin -) 400 mg PO Q6H PRN PRN Reason: FEVER Last Admin: 05/27/18 06:22 Dose: 400 mg Lamotrigine (Lamictal -) 200 mg GT BID [facility] Last Admin: 05/31/18 10:51 Dose: 200 mg Phenobarbital (Phenobarbital -) 45 mg GT BID [facility] Last Admin: 05/31/18 10:51 Dose: 45 mg Ranitidine HCl (Zantac Oral Solution -) 75 mg GT BID [facility] Last Admin: 05/31/18 10:51 Dose: 75 mg - Objective Vital Signs: Vital Signs Temperature 98.8 F 05/31/18 10:30 Pulse Rate 73 05/31/18 10:30 Respiratory Rate 19 05/31/18 10:30 Blood Pressure 108/69 05/31/18 10:30 O2 Sat by Pulse Oximetry (%) 98 05/30/18 21:00 Constitutional: Yes: No Distress, Calm Cardiovascular: Yes: S1, S2 Respiratory: Yes: On Nasal O2, Poor Air Entry Gastrointestinal: Yes: Normal Bowel Sounds, Soft, Other (peg tube) Musculoskeletal: Yes: WNL Extremities: Yes: Other Labs: CBC, BMP 01/18/19 16:53 05/28/18 16:54 INR, PTT INR 1.18 (0.83-1.09) H 05/23/18 00:33 Assessment/Plan Patient is a 23 year old male with PMHx of profound MR, functional quadriplegia , seizure disorder, asthma, chronic hypothermia, pneumonia with prior intubations and herpes encephalopathy. spesis pneumonia resp failure seizures plan patient on oral abx resp support monitor rest as per the team - Problems (1) Pneumonia Code(s): J18.9 - PNEUMONIA, UNSPECIFIED ORGANISM (2) Sepsis Code(s): A41.9 - SEPSIS, UNSPECIFIED ORGANISM (3) Aspiration pneumonia Code(s): J69.0 - PNEUMONITIS DUE TO INHALATION OF FOOD AND VOMIT (4) Epilepsy Code(s): G40.909 - EPILEPSY, UNSP, NOT INTRACTABLE, WITHOUT STATUS EPILEPTICUS (5) Profound mental retardation Code(s): F73 - PROFOUND INTELLECTUAL DISABILITIES (6) Lactic acidosis Code(s): E87.2 - ACIDOSIS
--- NOTE | 2018-05-31 15:42 | DS ---
Physical Examination Vital Signs: Vital Signs Temperature 98.8 F 05/31/18 10:30 Pulse Rate 73 05/31/18 10:30 Respiratory Rate 19 05/31/18 10:30 Blood Pressure 108/69 05/31/18 10:30 O2 Sat by Pulse Oximetry (%) 98 05/30/18 21:00 Constitutional: Yes: No Distress, Calm Eyes: Yes: Conjunctiva Clear HENT: Yes: Atraumatic Neck: Yes: Supple Cardiovascular: Yes: Regular Rate and Rhythm Respiratory: Yes: Regular, CTA Bilaterally Gastrointestinal: Yes: Normal Bowel Sounds, Soft ...Rectal Exam: Yes: Deferred Musculoskeletal: Yes: Joint Stiffness, Muscle Weakness Extremities: Yes: Deformity Edema: No Peripheral Pulses WNL: Yes Peripheral Pulses: Left Radial: 2+, Right Radial: 2+ Integumentary: Yes: WNL Neurological: Yes: Unresponsive ...Motor Strength: LLE (pt requires assistance to move extremities) Labs: CBC, BMP 05/28/18 16:53 05/28/18 16:54 Discharge Summary Reason For Visit: RESPITORY DISTRESS,SEPSIS,PNEUMONIA, LACTIC ACIDOS Current Active Problems Chronic respiratory insufficiency (Acute) Fever (Acute) Pneumonia (Acute) Respiratory distress (Acute) Sepsis (Acute) Procedures: Principal: CXR 05/23/2018. increased rotation to the left with weak inspiration. adb distention. Questionable retrocrdiac atelectasis or infiltrate. CT Chest/Abdomen/Pelvis 05/23/2018. Impression: Prominent bilateral perihilar opacities, left side more than right as discussed above. Abdomen and pelvis CT without contrast. . Clinical information given: unclear CXR. Multiplanar imaging was performed. As requested no intravenous or enteric contrast was administered. Evaluation is also limited due to a paucity of intra- abdominal fat. No evidence of pneumoperitoneum, free intraperitoneal fluid or bowel obstruction. The liver, spleen, pancreas, gallbladder, adrenal glands and kidneys demonstrate no obvious noncontrast pathology. There is no aortic aneurysm. No obvious of adenopathy is seen. Moderate colonic fecal retention is noted which appears improved in comparison to a prior CT exam of 02/21/2018. Mild colonic distention is noted which appears nonobstructive. A percutaneous gastrostomy tube is seen in place. No gross CT evidence of appendicitis or diverticulitis. Status post bilateral hip/upper femur ORIF. 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 Hospital Course: 23 year old boy with history of MR, cerebral palsy, herpes meningoencephalitis, on chronic BiPap, aspiration pneumonia in the past, who was sent to the ED from [place] for fever and chest/nasal congestion. Patient is noted to have productive cough with white sputum and was noted to be tachycardic presentation to the ED. RSV and Flu swab negative. pulm status improved with abx and nebs. WBC downtrending 10.5--> 7.3. On 05/28, MESSAGE AND DELIVERY SERVICE PRICER called for epistaxis from left nostril. Anterior rhino rocket applied. Bleeding has resolved. Antibiotics now tansitioned to oral dosing of augmentin. Course should be completed by 06/02. Pt stable for transfer back to [facility]. Condition: Improved - Instructions Diet, Activity, Other Instructions: Free water via PEG at 40ml/hr Jevity via PEG 40ml/hr Referrals: Jose Luis Valentino Jr [Primary Care Provider] - Disposition: LONG TERM FACILITY - Home Medications Comprehensive Discharge Medication List: Ambulatory Orders Acyclovir 400 mg GT BID 04/25/17 Baclofen 10 mg GT BID 04/25/17 Clobazam [Onfi -] 5 mg GT BID 04/25/17 Clonazepam 1.5 mg GT TID 04/25/17 Fluticasone Propionate [Flovent Diskus] 50 mcg IH DAILY 04/25/17 Ipratropium/Albuterol Sulfate [Iprat-Albut 0.5-3(2.5) mg/3 ml] 3 ml IH Q6H 04/25 Lactobacillus Acidophilus [Acidophilus] 1 each GT HS 04/25/17 Lamotrigine 200 mg GT BID 04/25/17 Magnesium Hydrox 2400MG/30Ml [Milk of Magnesia -] 20 ml GT BID 04/25/17 Multivitamin [Poly-Vitamin] 1 each GT HS 04/25/17 Phenobarbital 48.6 mg GT BID 04/25/17 Acetylcysteine Po/INH 20% [Mucomyst 20 Oral / INH Use Only*] 100 mg NEB RQID vial 03/29/18 Ranitidine [Zantac -] 75 mg GT BID #0 tab 03/29/18 Diazepam Rectal Gel [Diastat Rectal Gel -] 10 mg NM PRN PRN 05/23/18 Fluticasone Prop 0.05% Nasal [Flonase -] 2 spray NS DAILY 05/23/18 Fructooligosaccharides/Polydex [Fiber-Stat 15 gm/30 ml Liquid] 15 gm GT HS 05/23 Protein Supplement [Promod] 946 ml PO DAILY 05/23/18 Sodium Phosphate/Na Biphos [Fleet Adult Rectal Enema -] 133 ml RC ONCE PRN 05/23 Amox-Tr/K Cl [Augmentin 875-125mg Tablet -] 1 tab PO BID@0800,1730 2 Days #4 tablet 05/31/18 This patient is new to me today: No Date on this admission: 05/23/18 Emergency Visit: Yes ED Registration Date: 05/23/18 Care time: The patient presented to the Emergency Department on the above date and was hospitalized for further evaluation of their emergent condition. Critical Care patient: No - Discharge Referral Referred to [facility] Med P.C.: No
[2018-05-31 15:52] VITALS: BP 148/94; PULSE 89; TEMP 98.6
== END 2018-05-31 17:56 | DRG 720 ==
LOC: JER 23:50 → JERBED 05-23 08:14 → J5S 05-24 00:26
PROVIDERS: ADMIT Internal Medicine; ATTEND Nurse Practitioner Family
PROC: 2Y41X5Z Packing of Nasal Region using Packing Material (ICD-10-PCS; principal; 2018-05-28)
DX: A41.89 Other specified sepsis (principal); F73 Profound intellectual disabilities; J45.909 Unspecified asthma, uncomplicated; R74.0 Nonspecific elevation of levels of transaminase and lactic acid dehydrogenase [LDH]; R13.10 Dysphagia, unspecified; J69.0 Pneumonitis due to inhalation of food and vomit; R53.2 Functional quadriplegia; J96.01 Acute respiratory failure with hypoxia; K21.9 Gastro-esophageal reflux disease without esophagitis; K59.00 Constipation, unspecified; G40.909 Epilepsy, unspecified, not intractable, without status epilepticus; R50.9 Fever, unspecified; R00.0 Tachycardia, unspecified; E87.2 Acidosis; R68.0 Hypothermia, not associated with low environmental temperature; B10.09 Other human herpesvirus encephalitis; D72.829 Elevated white blood cell count, unspecified; D64.9 Anemia, unspecified; G80.9 Cerebral palsy, unspecified; R06.89 Other abnormalities of breathing; R04.0 Epistaxis; Z93.1 Gastrostomy status
CPT/HCPCS: 36415; 71045-TC-FY; 71250-TC; 74176-TC; 80048; 80053; 81003; 83605; 83735; 84100; 84484; 85025; 85027; 85610; 85730; 87040; 87086; 87804; 87807; 93005; 93010; 94640; 99285-25; G0480; J0131; J0475; J1644; J7030

== ENCOUNTER 2018-09-10 18:10 | Inpatient (IN) | payer OTHER ==
[2018-09-10] MEDS ORDERED: ALBUTEROL SO4 2.5/IPRATROPIUM 0.5 INH SOL 3 ML VIAL.NEB. NEB ONE ×2 (18:52→19:16)
[2018-09-10] MEDS ORDERED: SODIUM CHLORIDE 1,000 ML IV STA (19:16)
[2018-09-10] MEDS ORDERED: ACETAMINOPHEN 1000 MG/100 ML VIAL (NON FORMULARY) IVPB ONE (19:16)
[2018-09-10] MEDS ORDERED: ACETAMINOPHEN INJECTION 100 ML IVPB ONE (19:19)
[2018-09-10] MEDS ORDERED: VANCOMYCIN 1,000 MG in DEXTROSE 5%-WATER - 250 ML IVPB ONE (19:32)
[2018-09-10] MEDS ORDERED: PIPERACILLIN/TAZOB 3.375 GM 3.375 GM in DEXTROSE 5%-WATER - 50 ML IVPB ONE (19:32)
[2018-09-10] MEDS ORDERED: AZITHROMYCIN IVPB 500 MG in DEXTROSE 5%-WATER - 250 ML IVPB ONE (19:32)
[2018-09-10 19:38] LABS: BASO % 0.1 % (0-2.0); EOS % 0.4 % (0-4.5); HEMATOCRIT 44.6 % (35.4-49); HEMOGLOBIN 14.8 GM/dL (11.7-16.9); LYMPH % 9.3 % (8-40); MCH 32.9 pg (25.7-33.7); MCHC 33.1 g/dl (32.0-35.9); MEAN CELL VOLUME 99.4 fl (80-96); MEAN PLT VOLUME 11.3 fl (7.5-11.1); MONO % 4.5 % (3.8-10.2); NEUT % 85.7 % (42.8-82.8); PLATELET COUNT 172 K/MM3 (134-434); RBC 4.49 M/mm3 (4.00-5.60); RDW 14.9 % (11.9-15.9); WHITE BLOOD COUNT 25.7 K/mm3 (4.0-10.0)
[2018-09-10 19:39] LABS: VENOUS PC02 38.9 mmHg (41-51); VENOUS PH 7.45 (7.31-7.41); VENOUS PO2 85.7 mmHg (30-40)
[2018-09-10] MEDS ORDERED: AZITHROMYCIN IVPB 500 MG/250 ML BAG IVPB ONE (19:58)
[2018-09-10] MEDS ORDERED: PIPERACILLIN/TAZOB 3.375 GM 3.375 GM/50 ML BAG IVPB ONE (19:58)
--- NOTE | 2018-09-10 19:58 | PDOC ---
History of Present Illness - General Chief Complaint: Respiratory Distress Stated Complaint: DIFFICULTY BREATHING History Source: Patient Exam Limitations: No Limitations - History of Present Illness Initial Comments: 09/10/18 19:56 23 yo M MELODY with a hx of asthma, epilepsy, mental retardation, herpes encephalitis, and recurrent pneumonias presents to the emergency department with fever and hypoxia from [place]. Nursing personnel accompanying the patient does not know why EMS was activated or the patient's history (hx acquired through previous charts). It was told that the patient became febrile today and was remaining hypoxic while on a non rebreather at the intermediate. Unable to acquire ROS. 09/10/18 19:59 Past History - Past Medical History Allergies/Adverse Reactions: Allergies Allergy/AdvReac Type Severity Reaction Status Date / Time No Known Allergies Allergy Verified 09/10/18 18:39 Home Medications: Ambulatory Orders Acyclovir 400 mg GT BID 04/25/17 Baclofen 10 mg GT BID 04/25/17 Clobazam [Onfi -] 5 mg GT BID 04/25/17 Clonazepam 1.5 mg GT TID 04/25/17 Fluticasone Propionate [Flovent Diskus] 50 mcg IH DAILY 04/25/17 Ipratropium/Albuterol Sulfate [Iprat-Albut 0.5-3(2.5) mg/3 ml] 3 ml IH Q6H 04/25 Lactobacillus Acidophilus [Acidophilus] 1 each GT HS 04/25/17 Lamotrigine 200 mg GT BID 04/25/17 Magnesium Hydrox 2400MG/30Ml [Milk of Magnesia -] 20 ml GT BID 04/25/17 Multivitamin [Poly-Vitamin] 1 each GT HS 04/25/17 Phenobarbital 48.6 mg GT BID 04/25/17 Acetylcysteine Po/INH 20% [Mucomyst 20 Oral / INH Use Only*] 100 mg NEB RQID vial 03/29/18 Ranitidine [Zantac -] 75 mg GT BID #0 tab 03/29/18 Diazepam Rectal Gel [Diastat Rectal Gel -] 10 mg AK PRN PRN 05/23/18 Fluticasone Prop 0.05% Nasal [Flonase -] 2 spray NS DAILY 05/23/18 Fructooligosaccharides/Polydex [Fiber-Stat 15 gm/30 ml Liquid] 15 gm GT HS 05/23 Protein Supplement [Promod] 946 ml PO DAILY 05/23/18 Sodium Phosphate/Na Biphos [Fleet Adult Rectal Enema -] 133 ml RC ONCE PRN 05/23 Amox-Tr/K Cl [Augmentin 875-125mg Tablet -] 1 tab PO BID@0800,1730 2 Days #4 tablet 05/31/18 Anemia: No Asthma: Yes Cancer: No Cardiac Disorders: No CVA: No COPD: No CHF: No Dementia: No Diabetes: No GI Disorders: Yes (DYSPHAGIA. CONSTIPATION. GERD.) Disorders: No HTN: No Hypercholesterolemia: No Liver Disease: No Psychiatric Problems: Yes (MR) Seizures: Yes (EPILEPSY) Thyroid Disease: No - Surgical History Abdominal Surgery: Yes (GT PLACEMENT) Appendectomy: No Cardiac Surgery: No Cholecystectomy: No Lung Surgery: No Neurologic Surgery: No Orthopedic Surgery: Yes (l hip pinning, r hip osteotomy) - Suicide/Smoking/Psychosocial Hx Smoking Status: No Smoking History: Never smoked Have you smoked in the past 12 months: No Number of Cigarettes Smoked Daily: 0 Information on smoking cessation initiated: No Hx Alcohol Use: No Drug/Substance Use Hx: No Substance Use Type: None Hx Substance Use Treatment: No *Physical Exam - Vital Signs Last Vital Signs Temp Pulse Resp BP Pulse Ox 99.5 F 111 H 30 H 95/45 L 92 L 09/10/18 18:32 09/10/18 18:32 09/10/18 18:32 09/10/18 18:32 09/10/18 19:25 ED Treatment Course - LABORATORY CBC & Chemistry Diagram: 09/10/18 19:18 09/10/18 22:32 - ADDITIONAL ORDERS Additional order review: Laboratory Results 09/10/18 19:14 VBG pH 7.45 H POC VBG pCO2 38.9 L POC VBG pO2 85.7 H VBG HCO3 26.5 VBG O2 Sat (Renzo) 96.8 H VBG Base Excess 2.9 H - Medications Given in the ED: ED Medications Discontinued Medications Generic Name Dose Route Start Last Admin Trade Name Freq PRN Reason Stop Dose Admin Albuterol/Ipratropium 1 amp 09/10/18 19:16 09/10/18 19:19 Duoneb - NEB 09/10/18 19:17 1 amp ONCE ONE Administration *DC/Admit/Observation/Transfer Diagnosis at time of Disposition: Pneumonia - Referrals - Patient Instructions - Post Discharge Activity
[2018-09-10] MEDS ORDERED: SODIUM CHLORIDE 0.9% 500 ML INFUS.BAG IV ONE (20:06)
[2018-09-10 20:19] LABS: INR 1.15 (0.83-1.09); PH,URINE 8.5 (5.0-8.0); PROTHROMBIN TIME (PATIENT) 13.6 SEC (9.7-13.0); URINE APPEARANCE CLEAR; URINE BILIRUBIN NEGATIVE (NEGATIVE); URINE COLOR YELLOW; URINE GLUCOSE (UA) NEGATIVE (NEGATIVE); URINE KETONE NEGATIVE (NEGATIVE); URINE LEUK ESTERASE NEGATIVE (NEGATIVE); URINE NITRITE NEGATIVE (NEGATIVE); URINE PROTEIN NEGATIVE (NEGATIVE); URINE UROBILINOGEN 0.2 mg/dL (0.2-1.0)
[2018-09-10 20:22] LABS: ACTIVATED PTT 42.1 SECONDS (25.2-36.5)
[2018-09-10] MEDS ORDERED: VANCOMYCIN 1 GRAM (PRE-DOCKED) 1,000 MG/250 ML BAG IVPB ONE (20:38)
[2018-09-10 23:24] LABS: PLATELET ESTIMATE ADEQUATE
[2018-09-10 23:32] LABS: ALBUMIN 2.3 g/dl (3.4-5.0); ALK PHOS 237 U/L (45-117); ANION GAP 30 MMOL/L (8-16); BILIRUBIN,TOTAL 0.2 mg/dL (0.2-1); BLOOD UREA NITROGEN 10 mg/dL (7-18); CHLORIDE 83 mmol/L (98-107); CO2 18 mmol/L (21-32); CREATININE 0.9 mg/dL (0.55-1.3); SGOT/AST 90 U/L (15-37); SGPT/ALT 96 U/L (13-61); SODIUM 131 mmol/L (136-145); TOT PROT 7.4 g/dl (6.4-8.2)
[2018-09-10] MEDS ORDERED: INSULIN REGULAR HUMAN 100 UNITS/ML *VIAL IVPUSH ONE (23:33)
[2018-09-10 23:34] LABS: CALCIUM 6.4 mg/dL (8.5-10.1); GLUCOSE,RANDOM 873 mg/dL (74-106)
[2018-09-10] MEDS ORDERED: POTASSIUM CHLORIDE ORAL LIQUID 20 MEQ/15 ML PEG ONE (23:36)
[2018-09-10] MEDS ORDERED: KCL 10 MEQ IVPB 30 MEQ/300 ML INFUS.BAG IVPB ONE (23:51)
[2018-09-10] MEDS ORDERED: INSULIN REGULAR HUMAN 100 UNITS/ML *VIAL ONE (23:52)
--- NOTE | 2018-09-10 23:53 | PN ---
Teaching Attending Note Name of Resident: Clifford No ATTENDING PHYSICIAN STATEMENT I saw and evaluated the patient. I reviewed the resident's note and discussed the case with the resident. I agree with the resident's findings and plan as documented. SUBJECTIVE: Patient seen and examined; please refer to resident note for further historical documentation. 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 He presents with hypoxia. Per ER documentation, "nursing personnel accompanying the patient does not know why EMS was activated or the patient's history (hx acquired through previous charts) . It was told that the patient became febrile today and was remaining hypoxic while on a non rebreather at the [place] [facility]. Unable to acquire ROS." His presentation for the medical team is much the same and he cannot offer any supplementary history. He is tachypnic, found to have large L-sided infiltrates on his CT, soft pressures at baseline with lower than normal MAP, but has a normal BUN. Is protecting his airway. We succesfully weaned him from BiPap to Ventimask in the ER. He will be stable for the floor as long as his hemodynamics maintain as well as he doesn't require high flow, etc. *please note initial CMP does not appear to be the patient's; discussed this at length with the ER and they repeated a chemistry which does NOT have an elevated AG, hyperglycemia, etc. His initial CMP is noted (1030P) which prompted STAT insulin administration that left him hypoglycemic in ER which did resolve but we will continue to follow closely. 10 sys ROS couldn't be reliably obtained due to clinical status PMH, PSH, FH, SH reviewed Home Medications Medication Instructions Recorded Acyclovir 400 mg GT BID 04/25/17 Baclofen 10 mg GT BID 04/25/17 Clobazam [Onfi -] 5 mg GT BID 04/25/17 Clonazepam 1.5 mg GT TID 04/25/17 Fluticasone Propionate [Flovent 50 mcg IH DAILY 04/25/17 Diskus] Ipratropium/Albuterol Sulfate 3 ml IH Q6H 04/25/17 [Iprat-Albut 0.5-3(2.5) mg/3 ml] Lactobacillus Acidophilus 1 each GT HS 04/25/17 [Acidophilus] Lamotrigine 200 mg GT BID 04/25/17 Magnesium Hydrox 2400MG/30Ml [Milk 20 ml GT BID 04/25/17 of Magnesia -] Multivitamin [Poly-Vitamin] 1 each GT HS 04/25/17 Phenobarbital 48.6 mg GT BID 04/25/17 Acetylcysteine Po/INH 20% 100 mg NEB RQID vial 03/29/18 [Mucomyst 20 Oral / INH Use Only*] Ranitidine [Zantac -] 75 mg GT BID #0 tab 03/29/18 Diazepam Rectal Gel [Diastat 10 mg MA PRN PRN 05/23/18 Rectal Gel -] Fructooligosaccharides/Polydex 15 gm GT HS 05/23/18 [Fiber-Stat 15 gm/30 ml Liquid] Protein Supplement [Promod] 946 ml PO DAILY 05/23/18 Sodium Phosphate/Na Biphos [Fleet 133 ml RC ONCE PRN 05/23/18 Adult Rectal Enema -] OBJECTIVE: VS, labs, imaging reviewed NAD, on mask in bed, managable secretions, nonverbal, contracted AT EOMI PERRLA RRR s1/2 no mgr Lungs with poor respiratory effort but scattered rales/crackles throughout, w/ sym exp NT ND +BS Contracted with no obvious decubs; waiting for patient to be turned to assess sacrum Not agitated, appears comfortable Preliminary CT shows L and R-sided PNA, likely aspiration component ASSESSMENT AND PLAN: Patient presents with hypoxia found to have a large L-sided pneumonia 1) Acute Respiratory Failure 2/2 PNA with potential asthma exacerbation -On ventimask; will continue with aggressive pulmonary toileting, etc. Will get chest PT. -Broad spectrum coverage with ID consultation. -Prelim CT reviewed; followup final report. Followup cultures, urinary ag, flu , viral PCR. Has had recurring aspiration events in past. Keep NPO overnight. -Has seen Pulmonary in the past; consider consulting in AM -As the PNA can cause some hyperreactive airways for the time being will place on Albuterol Q6h ATC alongside 60q6h of methylpred. He cannot participate in peak flows, etc. 2) Seizure disorder -Continue home medications without changes; seizure precautions should be implimented 3) Herpes encephalitis -Continue acyclovir 4) Functional Quadraplegia/Mental Retardation -Resident of [place]. Full Code. 5) Constipation -PRN enemas 6) Hypoglycemia -Likely iatrogenic; will monitor hourly glucose x2 then move to q4h if stable with fsg. Likely wrong lab with the glucose of 800 as patient is not diabetic and has never had hyperglycemia in the past.
--- NOTE | 2018-09-10 23:57 | PDOC ---
Documentation entered by Waldo Shahid SCRIBE, acting as scribe for Juani Leon MD. Juani Leon MD: This documentation has been prepared by the Kleber turner Nirvannie, SCRIBE, under my direction and personally reviewed by me in its entirety. I confirm that the documentation accurately reflects all work, treatment, procedures, and medical decision making performed by me. Attending Attestation - Resident Resident Name: Stuart Worrell - ED Attending Attestation I have performed the following: I have examined & evaluated the patient, The case was reviewed & discussed with the resident, I agree w/resident's findings & plan - HPI HPI: 09/10/18 20:35 The patient is a 23 year old male, with a significant past medical history of MR , cerebral palsy, herpes meningoencephalitis, on chronic BiPap, hx of aspiration pneumonia, who presents to the emergency department via EMS from [facility] [place][note 2] with, fever (Tmax 102F), tachycardia, and hypoxia. History is limited secondary to patients MR thus, was obtained via EMR and aid at bedside. Allergies: NKDA Social History: [facility] pt. - Physicial Exam PE: 09/10/18 20:35 GENERAL: +Warm to touch. HEAD: No signs of trauma LUNGS: +Hypoxic. HEART: +Tachycardic. ABDOMEN: Soft, nontender. No guarding, no rebound. No masses EXTREMITIES: +Contracted blt upper and lower extremities with stunted growth. NEUROLOGICAL: +Mental retardation. Pt is awake and alert however and he can follow simple commands. 09/10/18 23:47 - Medical Decision Making 09/10/18 20:05 Pt has a hx of pneumonias and he is here with fever, tachy and a septic picture. Pt has bilat contracted arms. He has 2 IV lines placed in his legs bilat. He has improvement with BiPAP placement. 09/10/18 21:47 CXR rotated and one view; possible retrocardiac infiltrate. Pt has clean urine. CBC elevated at 25; however lactic acid is negative. Chem hemolyzed. Pt will empirically be treated for pneumonia. 09/11/18 03:53 Pt had a chem of 800+ blood glucose; we treated it with reg insulin and he bottomed out. Pt treated with D50; now with repeat chem results different from the initial one. Unclear if original blood tube was patient's or not. We will continue to monitor pt's blood glc.
[2018-09-11] MEDS: KCL 10 MEQ IVPB 10 MEQ/100 ML INFUS.BAG IVPB SCH ×3 (00:05→03:02)
[2018-09-11] MEDS ORDERED: LACTATED RINGERS SOLUTION 1,000 ML IV SCH (00:15)
--- NOTE | 2018-09-11 00:17 | HP ---
CHIEF COMPLAINT: hypoxia, SOB PCP: From [place] HISTORY OF PRESENT ILLNESS: 23 yo M MELODY with a hx of asthma, epilepsy, mental retardation, herpes encephalitis, and multiple recent pneumonias presents to the emergency department with fever and hypoxia from [facility]. There is no one at bedside able to answer questions about why the patient presented, only that he was febrile and hypoxic in the home. Patient is not A&O and thus a thorough history is unable to be taken. ER course was notable for: (1) Glu > 800 (2) Potassium 3.0 (3) T 99.5 Allergies No Known Allergies Allergy (Verified 09/10/18 18:39) HOME MEDICATIONS: Home Medications Medication Instructions Recorded Acyclovir 400 mg GT BID 04/25/17 Baclofen 10 mg GT BID 04/25/17 Clobazam [Onfi -] 5 mg GT BID 04/25/17 Clonazepam 1.5 mg GT TID 04/25/17 Fluticasone Propionate [Flovent 50 mcg IH DAILY 04/25/17 Diskus] Ipratropium/Albuterol Sulfate 3 ml IH Q6H 04/25/17 [Iprat-Albut 0.5-3(2.5) mg/3 ml] Lactobacillus Acidophilus 1 each GT HS 04/25/17 [Acidophilus] Lamotrigine 200 mg GT BID 04/25/17 Magnesium Hydrox 2400MG/30Ml [Milk 20 ml GT BID 04/25/17 of Magnesia -] Multivitamin [Poly-Vitamin] 1 each GT HS 04/25/17 Phenobarbital 48.6 mg GT BID 04/25/17 Acetylcysteine Po/INH 20% 100 mg NEB RQID vial 03/29/18 [Mucomyst 20 Oral / INH Use Only*] Ranitidine [Zantac -] 75 mg GT BID #0 tab 03/29/18 Diazepam Rectal Gel [Diastat [address] PRN PRN 05/23/18 Rectal Gel -] Fluticasone Prop 0.05% Nasal 2 spray NS DAILY 05/23/18 [Flonase -] Fructooligosaccharides/Polydex 15 gm GT HS 05/23/18 [Fiber-Stat 15 gm/30 ml Liquid] Protein Supplement [Promod] 946 ml PO DAILY 05/23/18 Sodium Phosphate/Na Biphos [Fleet 133 ml RC ONCE PRN 05/23/18 Adult Rectal Enema -] Amox-Tr/K Cl [Augmentin 875-125mg 1 tab PO BID@0800,1730 2 Days #4 05/31/18 Tablet -] tablet REVIEW OF SYSTEMS Unable to assess due to mental status PHYSICAL EXAMINATION Vital Signs - 24 hr 09/10/18 09/10/18 09/10/18 18:32 19:25 22:44 Temperature 99.5 F Pulse Rate 111 H Respiratory 30 H Rate Blood Pressure 95/45 L O2 Sat by Pulse 93 L 92 L 100 Oximetry (%) GENERAL: Not A&O HEAD: Normal with no signs of gross trauma. EYES: PERRL ENT: Ears normal, nares patent, oropharynx clear without exudates, moist mucous membranes. LUNGS: Clear breath sounds, no obvious rhales or rhonchi HEART: RRR, S1 and S2 present ABDOMEN: Soft, nontender, nondistended, hypoactive bowel sounds, no guarding, no rebound, G-tube in place. EXTREMITIES: 2+ dorsal pedal pulses, warm, well-perfused, no edema, decorticate posturing, no calf tenderness Laboratory Results - last 24 hr 09/10/18 09/10/18 09/10/18 19:14 19:18 19:18 WBC 25.7 H RBC 4.49 Hgb 14.8 Hct 44.6 D MCV 99.4 H MCH 32.9 MCHC 33.1 RDW 14.9 Plt Count 172 D MPV 11.3 H D Absolute Neuts (auto) 22.0 H Total Counted 100 Neutrophils % 85.7 H D Neutrophils % (Manual) 75.0 Band Neutrophils % 1.0 Lymphocytes % 9.3 D Lymphocytes % (Manual) 11.0 D Monocytes % 4.5 Monocytes % (Manual) 9 D Eosinophils % 0.4 Eosinophils % (Manual) 4.0 D Basophils % 0.1 Nucleated RBC % 0 Platelet Estimate Adequate PT with INR 13.60 H INR 1.15 H PTT (Actin FS) 42.1 H VBG pH 7.45 H POC VBG pCO2 38.9 L POC VBG pO2 85.7 H VBG HCO3 26.5 VBG O2 Sat (Renzo) 96.8 H VBG Base Excess 2.9 H Sodium Potassium Chloride Carbon Dioxide Anion Gap BUN Creatinine Creat Clearance w eGFR Random Glucose Lactic Acid Calcium Total Bilirubin AST ALT Alkaline Phosphatase Troponin I Total Protein Albumin Urine Color Urine Appearance Urine pH Ur Specific [place] Urine Protein Urine Glucose (UA) Urine Ketones Urine Blood Urine Nitrite Urine Bilirubin Urine Urobilinogen Ur Leukocyte Esterase 09/10/18 09/10/18 09/10/18 19:18 19:18 19:18 WBC RBC Hgb Hct MCV MCH MCHC RDW Plt Count MPV Absolute Neuts (auto) Total Counted Neutrophils % Neutrophils % (Manual) Band Neutrophils % Lymphocytes % Lymphocytes % (Manual) Monocytes % Monocytes % (Manual) Eosinophils % Eosinophils % (Manual) Basophils % Nucleated RBC % Platelet Estimate PT with INR INR PTT (Actin FS) VBG pH POC VBG pCO2 POC VBG pO2 VBG HCO3 VBG O2 Sat (Renzo) VBG Base Excess Sodium Cancelled Potassium Cancelled Chloride Cancelled Carbon Dioxide Cancelled Anion Gap Cancelled BUN Cancelled Creatinine Cancelled Creat Clearance w eGFR Cancelled Random Glucose Cancelled Lactic Acid 0.8 Calcium Cancelled Total Bilirubin Cancelled AST Cancelled ALT Cancelled Alkaline Phosphatase Cancelled Troponin I Cancelled Total Protein Cancelled Albumin Cancelled Urine Color Yellow Urine Appearance Clear Urine pH 8.5 H Ur Specific [place] 1.003 L Urine Protein Negative Urine Glucose (UA) Negative Urine Ketones Negative Urine Blood Negative Urine Nitrite Negative Urine Bilirubin Negative Urine Urobilinogen 0.2 Ur Leukocyte Esterase Negative 09/10/18 22:32 WBC RBC Hgb Hct MCV MCH MCHC RDW Plt Count MPV Absolute Neuts (auto) Total Counted Neutrophils % Neutrophils % (Manual) Band Neutrophils % Lymphocytes % Lymphocytes % (Manual) Monocytes % Monocytes % (Manual) Eosinophils % Eosinophils % (Manual) Basophils % Nucleated RBC % Platelet Estimate PT with INR INR PTT (Actin FS) VBG pH POC VBG pCO2 POC VBG pO2 VBG HCO3 VBG O2 Sat (Renzo) VBG Base Excess Sodium 131 L Potassium 3.0 L Chloride 83 L Carbon Dioxide 18 L Anion Gap 30 H BUN 10 Creatinine 0.9 Creat Clearance w eGFR 105.52 Random Glucose 873 H* Lactic Acid Calcium 6.4 L* Total Bilirubin 0.2 AST 90 H ALT 96 H Alkaline Phosphatase 237 H Troponin I Total Protein 7.4 Albumin 2.3 L Urine Color Urine Appearance Urine pH Ur Specific [place] Urine Protein Urine Glucose (UA) Urine Ketones Urine Blood Urine Nitrite Urine Bilirubin Urine Urobilinogen Ur Leukocyte Esterase ASSESSMENT/PLAN: 23 yo M BIBA with a hx of asthma, epilepsy, mental retardation, herpes encephalitis, and multiple recent pneumonias presents to the emergency department with fever and hypoxia from [facility]. #Hypothermia and Acute Hypoxic Respiratory Failure: could have been a result of sepsis 2/2 pneumonia; temp 96.5 -ahsan hugger to maintain temp -patient is on bipap -O2 sat is ~90% on bipap, patient's extremities are very cold and could be skewing the pulse oximeter -vanco/zosyn/azithro -fluids -monitor vitals -blood/urine cultures -cxr appears clear on the right but obscured by position on the left, would benefit from CT -ID consultation -respiratory virus PCR -consider ICU if patient begins to decompensate -chest PT #Diabetes Mellitus: patient has not been on medications for diabetes in the past and now comes in with a BGM of > 800 - dropped to 22 after ED gave insulin , will repeat BMP now -will need Q6h BGMs -q2 BMPs -ordered insulin sliding scale -dietary consult for nutritional assessment given PEG -A1C -TSH #Herpes Encephalitis: -on acyclovir #Epilepsy: continue antiepileptics #FEN -LR -replete potassium and recheck labs in AM -NPO #Prophylaxis -SCDs #Disposition -admit Visit type - Emergency Visit Emergency Visit: Yes ED Registration Date: 09/11/18 Care time: The patient presented to the Emergency Department on the above date and was hospitalized for further evaluation of their emergent condition. - New Patient This patient is new to me today: Yes Date on this admission: 09/11/18 - Critical Care Critical Care patient: No
[2018-09-11] MEDS ORDERED: diazePAM ACUDIAL 5-7.5-10 MG 1 EACH KIT RC PRN (00:21)
[2018-09-11] MEDS ORDERED: INSULIN SLIDING SCALE (NOVOLOG) 1 VIAL SQ SCH (00:30)
[2018-09-11] MEDS ORDERED: VANCOMYCIN 1,000 MG in DEXTROSE 5%-WATER - 250 ML IVPB SCH (00:30)
[2018-09-11] MEDS ORDERED: DEXTROSE 50%-WATER - 25 GM/50 ML VIAL IVPUSH PRN (01:10)
[2018-09-11] MEDS ORDERED: DEXTROSE 50%-WATER 25 GM/50 ML DISP.SYRIN ONE ×2 (01:17→04:05)
[2018-09-11] MEDS ORDERED: POTASSIUM CHLORIDE ORAL LIQUID 20 MEQ/15 ML ONE (01:18)
[2018-09-11 02:37] LABS: ANION GAP 6 MMOL/L (8-16); BLOOD UREA NITROGEN 12 mg/dL (7-18); CALCIUM 8.3 mg/dL (8.5-10.1); CHLORIDE 109 mmol/L (98-107); CO2 26 mmol/L (21-32); CREATININE 0.6 mg/dL (0.55-1.3); GLUCOSE,RANDOM 103 mg/dL (74-106); POTASSIUM 3.9 mmol/L (3.5-5.1); SODIUM 141 mmol/L (136-145)
--- NOTE | 2018-09-11 02:58 | CONSULT ---
Consultation: REQUESTING PROVIDER: CONSULT REQUEST: We have been asked to medically evaluate this patient for hypoxic respiratory failure 2/2 to pneumonia. HISTORY OF PRESENT ILLNESS: Patient is a 23 y/o male with a history of asthma, elipesy, mental retardation, herpes encephalitis, and multiple pneumonias who is here for fever and hypoxia from [place]. Patient is unable to give a history, history is limited from [place]. Patient was placed on Bipap when he was having respiratory distress. Patient was able to tolerate nonrebreather. Patient does not need ICU treatment at this time. REVIEW OF SYSTEMS: not able to be reviewed PHYSICAL EXAMINATION Vital Signs Temperature 99.5 F 09/10/18 18:32 Pulse Rate 111 H 09/10/18 18:32 Respiratory Rate 30 H 09/10/18 18:32 Blood Pressure 95/45 L 09/10/18 18:32 O2 Sat by Pulse Oximetry (%) 99 09/11/18 02:15 GENERAL: Awake and alert EYES: Pupils equal, round and reactive to light EARS, NOSE, THROAT: Moist mucous membranes. LUNGS: diminished breath sounds over left chest, scoliotic, no accessory musle use HEART: Regular rate and rhythm, normal S1 and S2 without murmur, rub or gallop. ABDOMEN: Soft, nontender, not distended, normoactive bowel sounds, no guarding, no rebound, no masses. G tube in place LOWER EXTREMITIES: 2+ pulses, warm, well-perfused. No calf tenderness. No peripheral edema. SKIN: Warm, dry, normal turgor, no rashes or lesions noted. CBCD WBC 25.7 K/mm3 (4.0-10.0) H 09/10/18 19:18 RBC 4.49 M/mm3 (4.00-5.60) 09/10/18 19:18 Hgb 14.8 GM/dL (11.7-16.9) 09/10/18 19:18 Hct 44.6 % (35.4-49) D 09/10/18 19:18 MCV 99.4 fl (80-96) H 09/10/18 19:18 MCHC 33.1 g/dl (32.0-35.9) 09/10/18 19:18 RDW 14.9 % (11.9-15.9) 09/10/18 19:18 Plt Count 172 K/MM3 (134-434) D 09/10/18 19:18 MPV 11.3 fl (7.5-11.1) H D 09/10/18 19:18 CMP Sodium 141 mmol/L (136-145) 09/11/18 02:03 Potassium 3.9 mmol/L (3.5-5.1) 09/11/18 02:03 Chloride 109 mmol/L (98-107) H 09/11/18 02:03 Carbon Dioxide 26 mmol/L (21-32) 09/11/18 02:03 Anion Gap 6 MMOL/L (8-16) L 09/11/18 02:03 BUN 12 mg/dL (7-18) 09/11/18 02:03 Creatinine 0.6 mg/dL (0.55-1.3) 09/11/18 02:03 Creat Clearance w eGFR 168.47 (>60) 09/11/18 02:03 Calcium 8.3 mg/dL (8.5-10.1) L 09/11/18 02:03 Total Bilirubin 0.2 mg/dL (0.2-1) 09/10/18 22:32 AST 90 U/L (15-37) H 09/10/18 22:32 ALT 96 U/L (13-61) H 09/10/18 22:32 Alkaline Phosphatase 237 U/L (45-117) H 09/10/18 22:32 Total Protein 7.4 g/dl (6.4-8.2) 09/10/18 22:32 Albumin 2.3 g/dl (3.4-5.0) L 09/10/18 22:32 Active Medications Albuterol/Ipratropium (Duoneb -) 1 amp NEB RQID JORGE Baclofen (Lioresal -) 10 mg GT BID JORGE Clobazam (Onfi -) 5 mg GT BID [facility] Diazepam (Diastat Rectal Gel -) 10 mg RC PRN PRN PRN Reason: <Seizures> Enoxaparin Sodium (Lovenox -) 40 mg SQ DAILY [facility] Fluticasone Propionate (Flonase -) 2 spray NS DAILY [facility] Lactated Ringer's (Lactated Ringers Solution) 1,000 mls @ 83 mls/hr IV ASDIR JORGE Stop: 09/11/18 12:18 Azithromycin 500 mg/ Dextrose 250 mls @ 250 mls/hr IVPB DAILY JORGE Vancomycin HCl 1,000 mg/ (Dextrose) 250 mls @ 166.667 mls/hr IVPB Q12H JORGE; Protocol Piperacillin Sod/Tazobactam (Sod 3.375 gm/ Dextrose) 50 mls @ 100 mls/hr IVPB Q8H-IV JORGE; Protocol Insulin Aspart (Novolog Vial Sliding Scale -) 1 vial SQ Q6H JORGE; Protocol Lamotrigine (Lamictal -) 200 mg PO BID JORGE Methylprednisolone Sodium Succinate (Solu-Medrol -) 40 mg IVPUSH Q8H-IV JORGE Non-Formulary Medication (Acetylcysteine Po/Inh 20%) 100 mg NEB RQID JORGE Non-Formulary Medication (Acyclovir [Acyclovir]) 400 mg GT BID JORGE Non-Formulary Medication (Clonazepam [Clonazepam]) 1.5 mg GT TID JORGE Non-Formulary Medication (Fluticasone Propionate [Flovent Diskus]) 50 mcg IH DAILY JORGE Non-Formulary Medication (Fructooligosaccharides/Polydex [Fiber-Stat 15 Gm/30 Ml Liquid]) 15 gm GT HS JORGE Non-Formulary Medication (Lactobacillus Acidophilus [Acidophilus]) 1 each GT HS JORGE Non-Formulary Medication (Magnesium Hydrox 2400mg/30ml) 20 ml GT BID JORGE Non-Formulary Medication (Multivitamin [Poly-Vitamin]) 1 each GT HS JORGE Non-Formulary Medication (Phenobarbital [Phenobarbital]) 48.6 mg GT BID JORGE Non-Formulary Medication (Protein Supplement [Promod]) 946 ml PO DAILY JORGE Ranitidine HCl (Zantac -) 75 mg PO BID [facility] ASSESSMENT/PLAN: [facility] 23 [facility] who is here for acute hypoxic respiratory failure 2/2 to PNA. Patient tolerating nonrebreather at this time and does not need ICU. continue management as per primary team. Neuro - at baseline per aid - hx herpes encephalitis, continue acyclovir - hx epilepsey, continue antip Cardio - tachycardia likly 2/2 to infection - BP holding stable Pulm -hypoxic respiratory failure likely sepsis 2/2 pneumonia; temp 96.5 -ahsan hugger to maintain temp -patient is on nonrebreather and satting 99%, titrate down to venti mask as possible -vanco/zosyn/azithro -fluids, monitor vitals -cxr appears clear on the right but obscured by position on the left, CT with similar findings -patient not a candidate for ICU at this time GI -continue meds through po tube ID - f/u urine and blood cx - will consult ID - low temp Heme - ppx: scd's FEN - patients initial BMP labs are most likely wrong, after receiving insulin patients sugar dropped to 22, and patient has no hx of DM, repeat labs shows normal glucose and K - patient received two units KCL, 3rd was held, normal potassium - NPO for now Dispo: We will not continue to follow the patient as they do not need ICU monitoring at this time. Thank you for this consultative opportunity. Visit type - Emergency Visit Emergency Visit: Yes ED Registration Date: 09/11/18 Care time: The patient presented to the Emergency Department on the above date and was hospitalized for further evaluation of their emergent condition. - New Patient This patient is new to me today: Yes Date on this admission: 09/11/18 - Critical Care Critical Care patient: No Total Critical Care Time (in minutes): 35 Critical Care Statement: The care of this patient involved high complexity decision making to prevent further life threatening deterioration of the patient 's condition and/or to evaluate & treat vital organ system(s) failure or risk of failure.
[2018-09-11] MEDS ORDERED: VANCOMYCIN 1 GRAM (PRE-DOCKED) 1,000 MG/250 ML BAG IVPB ONE ×3 (03:03→09:34)
[2018-09-11] MEDS ORDERED: PIPERACILLIN/TAZOB 3.375 GM 3.375 GM/50 ML BAG IVPB ONE (03:03)
[2018-09-11] MEDS: PIPERACILLIN/TAZOB 3.375 GM 3.375 GM in DEXTROSE 5%-WATER - 50 ML IVPB SCH ×3 (03:08→18:29)
[2018-09-11] MEDS ORDERED: methylPREDNISolone NA SUCC 40 MG/1 ML VIAL ONE (03:36)
[2018-09-11] MEDS: methylPREDNISolone NA SUCC 40 MG/1 ML VIAL IVPUSH SCH ×3 (03:45→18:29)
[2018-09-11] MEDS ORDERED: DEXTROSE 50%-WATER - 25 GM/50 ML VIAL IVPUSH ONE (03:55)
[2018-09-11 05:52] LABS: HEMATOCRIT 40.4 % (35.4-49); HEMOGLOBIN 13.6 GM/dL (11.7-16.9); MCH 33.6 pg (25.7-33.7); MCHC 33.8 g/dl (32.0-35.9); MEAN CELL VOLUME 99.4 fl (80-96); PLATELET COUNT 146 K/MM3 (134-434); RBC 4.06 M/mm3 (4.00-5.60); RDW 14.9 % (11.9-15.9); WHITE BLOOD COUNT 15.1 K/mm3 (4.0-10.0)
[2018-09-11 06:28] LABS: ANION GAP 5 MMOL/L (8-16); BLOOD UREA NITROGEN 8 mg/dL (7-18); CALCIUM 8.9 mg/dL (8.5-10.1); CHLORIDE 108 mmol/L (98-107); CO2 24 mmol/L (21-32); CREATININE 0.5 mg/dL (0.55-1.3); GLUCOSE,RANDOM 197 mg/dL (74-106); PHOSPHOROUS 2.9 mg/dL (2.5-4.9); POTASSIUM 4.7 mmol/L (3.5-5.1); SODIUM 136 mmol/L (136-145)
[2018-09-11] MEDS: INSULIN SLIDING SCALE (NOVOLOG) 1 VIAL SQ SCH ×4 (07:00→23:31)
[2018-09-11] MEDS ORDERED: VANCOMYCIN 1,000 MG in DEXTROSE 5%-WATER - 250 ML IVPB ONE (07:44)
[2018-09-11] MEDS ORDERED: ACETYLCYSTEINE 20% 200MG/ML 4 ML VIAL *FOR ORAL / INH USE ONLY NEB SCH (08:00)
--- NOTE | 2018-09-11 08:43 | PN ---
Progress Note (short form) - Note Progress Note: resting comfortable Current Medications Generic Name Dose Route Start Last Admin Trade Name Freq PRN Reason Stop Dose Admin Acetylcysteine 100 mg 09/11/18 08:00 Mucomyst 20 Oral / Inh Use Only* NEB RQID JORGE Acyclovir 400 mg 09/11/18 10:00 Zovirax Oral Suspension - GT BID JORGE Albuterol/Ipratropium 1 amp 09/11/18 08:00 Duoneb - NEB RQID JORGE Baclofen 10 mg 09/11/18 10:00 Lioresal - GT BID JORGE Clobazam 5 mg 09/11/18 10:00 Onfi - GT BID JORGE Clonazepam 1.5 mg 09/11/18 06:00 Klonopin - PO TID JORGE Diazepam 10 mg 09/11/18 00:21 Diastat Rectal Gel - RC PRN PRN <Seizures> Enoxaparin Sodium 40 mg 09/11/18 10:00 Lovenox - SQ DAILY JORGE Fluticasone Propionate 2 spray 09/11/18 10:00 Flonase - NS DAILY JORGE Lactated Ringer's 1,000 mls @ 83 mls/hr 09/11/18 00:15 09/11/18 02:00 Lactated Ringers Solution IV 09/11/18 12:18 83 mls/hr ASDIR JORGE Administration Piperacillin Sod/Tazobactam 50 mls @ 100 mls/hr 09/11/18 02:00 09/11/18 03:08 Sod 3.375 gm/ Dextrose IVPB 09/11/18 10:29 100 mls/hr Q8H-IV JORGE Administration Protocol Piperacillin Sod/Tazobactam 50 mls @ 100 mls/hr 09/11/18 18:00 Sod 3.375 gm/ Dextrose IVPB 09/12/18 17:59 Q8H-IV JORGE Protocol Vancomycin HCl 1,000 mg in 250 mls @ 166.667 mls/hr 09/11/18 15:00 Vancomycin (Pre-Docked) IVPB 09/11/18 16:29 Q12H JORGE Protocol Vancomycin HCl 1,000 mg in 250 mls @ 166.667 mls/hr 09/12/18 03:00 Vancomycin (Pre-Docked) IVPB Q12H JORGE Protocol Vancomycin HCl 1,000 mg/ 250 mls @ 166.667 mls/hr 09/11/18 07:44 Dextrose IVPB 09/11/18 09:13 ONCE ONE Protocol Piperacillin Sod/Tazobactam 50 mls @ 100 mls/hr 09/11/18 10:00 Sod 3.375 gm/ Dextrose IVPB Q8H-IV JORGE Protocol Insulin Aspart 1 vial 09/11/18 05:10 09/11/18 07:00 Novolog Vial Sliding Scale - SQ Not Given Q6HPO [facility] Protocol Lactobacillus Acidophilus 1 tab 09/11/18 22:00 Bacid - GT HS JORGE Lamotrigine 200 mg 09/11/18 10:00 Lamictal - GT BID JORGE Magnesium Hydroxide 20 ml 09/11/18 10:00 Milk Of Magnesia - GT BID JORGE Methylprednisolone Sodium Succinate 40 mg 09/11/18 02:00 09/11/18 03:45 Solu-Medrol - IVPUSH 40 mg Q8H-IV JORGE Administration Mometasone Furoate 1 puff 09/11/18 22:00 Asmanex 220mcg - IH HS JORGE Phenobarbital 45 mg 09/11/18 10:00 Phenobarbital - GT BID JORGE Ranitidine HCl 75 mg 09/11/18 10:00 Zantac Oral Solution - GT BID [facility] Last Vital Signs Temp Pulse Resp BP Pulse Ox 97.2 F L 80 25 H 108/72 15 L 09/11/18 08:30 09/11/18 08:30 09/11/18 08:30 09/11/18 08:30 09/11/18 08:30 General NAD, alert, non verbal CV S1 S2 RRR no murmur/rub/gallop Lungs corase breath sounds anteriorly, poor inspiratory effort Abdomen soft NT/ND +PEG Extremities no edema, all extremities contracted CBCD WBC 15.1 K/mm3 (4.0-10.0) H 09/11/18 05:14 RBC 4.06 M/mm3 (4.00-5.60) 09/11/18 05:14 Hgb 13.6 GM/dL (11.7-16.9) 09/11/18 05:14 Hct 40.4 % (35.4-49) 09/11/18 05:14 MCV 99.4 fl (80-96) H 09/11/18 05:14 MCHC 33.8 g/dl (32.0-35.9) 09/11/18 05:14 RDW 14.9 % (11.9-15.9) 09/11/18 05:14 Plt Count 146 K/MM3 (134-434) 09/11/18 05:14 MPV 11.0 fl (7.5-11.1) 09/11/18 05:14 CMP Sodium 136 mmol/L (136-145) 09/11/18 05:14 Potassium 4.7 mmol/L (3.5-5.1) 09/11/18 05:14 Chloride 108 mmol/L (98-107) H 09/11/18 05:14 Carbon Dioxide 24 mmol/L (21-32) 09/11/18 05:14 Anion Gap 5 MMOL/L (8-16) L 09/11/18 05:14 BUN 8 mg/dL (7-18) 09/11/18 05:14 Creatinine 0.5 mg/dL (0.55-1.3) L 09/11/18 05:14 Creat Clearance w eGFR 207.93 (>60) 09/11/18 05:14 Random Glucose 197 mg/dL (74-106) H 09/11/18 05:14 Calcium 8.9 mg/dL (8.5-10.1) 09/11/18 05:14 Total Bilirubin 0.2 mg/dL (0.2-1) 09/10/18 22:32 AST 90 U/L (15-37) H 09/10/18 22:32 ALT 96 U/L (13-61) H 09/10/18 22:32 Alkaline Phosphatase 237 U/L (45-117) H 09/10/18 22:32 Total Protein 7.4 g/dl (6.4-8.2) 09/10/18 22:32 Albumin 2.3 g/dl (3.4-5.0) L 09/10/18 22:32 CARDIAC ENZYMES Troponin I Cancelled 09/10/18 19:18 A/P 23yo M from [place] with MR, CP, dysphagia s/p PEG, HSV encephalitis and recurrent episodes of PNA presented to the ER due to hypoxia noted at the facility, when pt arrived he was noted to be in acute hypoxic respiratory failure likely due to PNA 1. Acute hypoxic respiratory failure- on NRB. saturating 100%. will try to titrate down as tolerated. received medrol 40mg Q8H. no wheezing now but can do a quick taper. treat PNA 2. Sepsis due to PNA- will need treatment for HCAP. f/u official CT report. has hx of psuedomonas in the sputum. will cont with vanco and zosyn. UA negative. ID consulted. f/u Cx 3. MR 4. CP- cont home medications 5. Dysphagia s/p PEG- will confirm peg feeds and re-start 6. 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 Functional quadriplegia 8. DVT ppx- lovenox 9. was evaluated for MICU and not accepted at this time. will cont with close monitoring Visit type - Emergency Visit Emergency Visit: Yes ED Registration Date: 09/11/18 Care time: The patient presented to the Emergency Department on the above date and was hospitalized for further evaluation of their emergent condition. - New Patient This patient is new to me today: Yes Date on this admission: 09/11/18 - Critical Care Critical Care patient: No - Discharge Referral Referred to [facility] Med P.C.: No
[2018-09-11] MEDS ORDERED: clonazePAM 0.5 MG TABLET ONE (09:33)
[2018-09-11] MEDS ORDERED: ALBUTEROL SO4 2.5/IPRATROPIUM 0.5 INH SOL 3 ML VIAL.NEB. NEB ONE (09:33)
[2018-09-11] MEDS ORDERED: ACETYLCYSTEINE 20% 200MG/ML 4 ML VIAL *FOR ORAL / INH USE ONLY ONE (09:34)
--- NOTE | 2018-09-11 09:42 | EKG ---
Test Reason : Blood Pressure : / mmHG Vent. Rate : 090 BPM Atrial Rate : 090 BPM P-R Int : 148 ms QRS Dur : 106 ms QT Int : 372 ms P-R-T Axes : 049 089 031 degrees QTc Int : 455 ms NORMAL SINUS RHYTHM INFERIOR-POSTERIOR INFARCT (CITED ON OR BEFORE 26-JUN-2016) ABNORMAL ECG WHEN COMPARED WITH ECG OF 23-MAY-2018 00:24, NO SIGNIFICANT CHANGE WAS FOUND Confirmed by ALIX TERRAZAS MD ([id number]) on 09/11/2018 9:42:03 AM Referred By: Confirmed By:ALIX TERRAZAS MD
[2018-09-11] MEDS: clonazePAM 0.5 MG TABLET PO SCH ×3 (09:51→22:29)
[2018-09-11] MEDS: ALBUTEROL SO4 2.5/IPRATROPIUM 0.5 INH SOL 3 ML VIAL.NEB. NEB SCH ×4 (09:52→20:55)
[2018-09-11] MEDS ORDERED: AZITHROMYCIN IVPB 500 MG in DEXTROSE 5%-WATER - 250 ML IVPB SCH (10:00)
[2018-09-11] MEDS ORDERED: PROTEIN SUPPLEMENT PO SCH (10:00)
[2018-09-11] MEDS ORDERED: PHENobarbital 15 MG TABLET GT SCH (10:00)
[2018-09-11] MEDS ORDERED: PIPERACILLIN/TAZOB 3.375 GM 3.375 GM in DEXTROSE 5%-WATER - 50 ML IVPB SCH ×2 (10:00→18:00)
[2018-09-11] MEDS: FLUTICASONE PROP 0.05% 16 GM NASAL SPRAY NS SCH (11:05)
[2018-09-11] MEDS: RANITIDINE HCL 150 MG/10 ML UNIT-DOSE GT SCH ×2 (11:07→22:32)
[2018-09-11] MEDS: ENOXAPARIN NA (PORCINE) 40 MG/0.4 ML DISP.SYRIN SQ SCH (11:08)
[2018-09-11] MEDS: MAGNESIUM HYDROX 2400MG/30ML ORAL SUSPENSION 30 ML CUP GT SCH ×2 (11:08→22:30)
[2018-09-11] MEDS: BACLOFEN 10 MG TABLET (FP) GT SCH ×2 (11:09→22:30)
[2018-09-11] MEDS: lamoTRIgine 100 MG TABLET (FP) GT SCH ×2 (11:09→22:30)
[2018-09-11] MEDS: ACYCLOVIR 200 MG/5 ML LIQUID GT SCH ×2 (11:10→22:59)
[2018-09-11] MEDS ORDERED: PIPERACILLIN/TAZOBACTAM 3.375 GM VIAL IVPB ONE ×2 (11:16→18:20)
[2018-09-11] MEDS ORDERED: DEXTROSE 5%-WATER - 50 ML IVPB ONE ×2 (11:17→18:21)
[2018-09-11] MEDS ORDERED: PT OWN MED DRAWER 7, Y5N ONE (11:18)
[2018-09-11] MEDS: cloBAZam 10 MG TABLET GT SCH ×2 (11:22→22:31)
[2018-09-11] MEDS ORDERED: PHENobarbital 20 MG/5 ML UNIT-DOSE CUP GT SCH (11:55)
--- NOTE | 2018-09-11 12:03 | CON.ID ---
Consult Consult Specialty:: infectious diseases Referred by:: Hospitalist Reason for Consultation:: pna,sob,hypoxia - History of Present Illness Chief Complaint: sob,hypoxia History of Present Illness: 23 yo M BIBA with a hx of asthma, epilepsy, mental retardation, herpes encephalitis, and multiple recent pneumonias presents known to me from previous admissions coming in wiht hypoxia, patient known to me from previous admissions now on face mask stabilized and breathing better patient before coming here was also spiking fevers - History Source History Provided By: Medical Record Limitations to Obtaining History: Clinical Condition - Past Medical History DISABILITY 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: Other (Mental retardation, cerebral palsy) Pulmonary: Yes: Asthma Gastrointestinal: Yes: Other (gastrostomy) Infectious Disease: Yes: Herpes Zoster Musculoskeletal: Yes: Other (Functional Qaudraplegic) - Alcohol/Substance Use Hx Alcohol Use: No - Smoking History Smoking history: Never smoked Have you smoked in the past 12 months: No Aproximately how many cigarettes per day: 0 - Social History Usual Living Arrangement: [facility] ADL: Support Services History of Recent Travel: No Home Medications - Allergies Allergies/Adverse Reactions: Allergies Allergy/AdvReac Type Severity Reaction Status Date / Time No Known Allergies Allergy Verified 09/10/18 18:39 - Home Medications Home Medications: Ambulatory Orders Acyclovir 400 mg GT BID 04/25/17 Baclofen 10 mg GT BID 04/25/17 Clobazam [Onfi -] 5 mg GT BID 04/25/17 Clonazepam 1.5 mg GT TID 04/25/17 Fluticasone Propionate [Flovent Diskus] 50 mcg IH DAILY 04/25/17 Ipratropium/Albuterol Sulfate [Iprat-Albut 0.5-3(2.5) mg/3 ml] 3 ml IH Q6H 04/25 Lactobacillus Acidophilus [Acidophilus] 1 each GT HS 04/25/17 Lamotrigine 200 mg GT BID 04/25/17 Magnesium Hydrox 2400MG/30Ml [Milk of Magnesia -] 20 ml GT BID 04/25/17 Multivitamin [Poly-Vitamin] 1 each GT HS 04/25/17 Phenobarbital 48.6 mg GT BID 04/25/17 Acetylcysteine Po/INH 20% [Mucomyst 20 Oral / INH Use Only*] 100 mg NEB RQID vial 03/29/18 Ranitidine [Zantac -] 75 mg GT BID #0 tab 03/29/18 Diazepam Rectal Gel [Diastat Rectal Gel -] 10 mg HI PRN PRN 05/23/18 Fructooligosaccharides/Polydex [Fiber-Stat 15 gm/30 ml Liquid] 15 gm GT HS 05/23 Protein Supplement [Promod] 946 ml PO DAILY 05/23/18 Sodium Phosphate/Na Biphos [Fleet Adult Rectal Enema -] 133 ml RC ONCE PRN 05/23 Review of Systems Unable to obtain ROS, reason: unable to obtain Physical Exam Vital Signs: Vital Signs Temperature 97 F L 09/11/18 09:21 Pulse Rate 85 09/11/18 09:21 Respiratory Rate 31 H 09/11/18 09:21 Blood Pressure 110/76 09/11/18 09:21 O2 Sat by Pulse Oximetry (%) 97 09/11/18 12:00 Constitutional: Yes: Calm, Other Cardiovascular: Yes: Regular Rate and Rhythm Respiratory: Yes: Poor Air Entry, Other (on face mask) Gastrointestinal: Yes: Normal Bowel Sounds, Soft Musculoskeletal: Yes: Other Extremities: Yes: Other Neurological: Yes: Other (mr) Psychiatric: Yes: Other Labs: CBC, BMP 09/11/18 05:14 09/11/18 05:14 Imaging - Results Chest X-ray: Report Reviewed, Image Reviewed Cat Scan: Image Reviewed
[2018-09-11] MEDS: PHENobarbital 20 MG/5 ML UNIT-DOSE CUP GT SCH ×2 (12:53→22:36)
[2018-09-11] MEDS: DEXTROSE 5%-WATER - 1,000 ML IV SCH (13:00)
[2018-09-11 15:14] VITALS: BMI 22.8
[2018-09-11] MEDS ORDERED: VANCOMYCIN 1 GRAM (PRE-DOCKED) 1,000 MG/250 ML BAG IVPB SCH (21:30)
[2018-09-11] MEDS ORDERED: [UNRECOGNIZED DRUG - MIXTURE] GT SCH (22:00)
[2018-09-11] MEDS: MULTIVIT-MINERALS ORAL LIQUID PO SCH (22:28)
[2018-09-11] MEDS: LACTOBACILLUS ACIDOPHILUS 1 TABLET GT SCH (22:28)
[2018-09-11] MEDS ORDERED: INSULIN (NOVOLOG) ASPART 100 UNITS/ML 10ML VIAL ONE (23:29)
[2018-09-11] MEDS: MOMETASONE FUROATE 220 MCG/IH INHALER IH SCH (23:50)
[2018-09-12] MEDS ORDERED: PIPERACILLIN/TAZOBACTAM 3.375 GM VIAL IVPB ONE ×3 (01:06→17:13)
[2018-09-12] MEDS ORDERED: DEXTROSE 5%-WATER - 50 ML IVPB ONE ×3 (01:06→17:13)
[2018-09-12] MEDS: PIPERACILLIN/TAZOB 3.375 GM 3.375 GM in DEXTROSE 5%-WATER - 50 ML IVPB SCH ×3 (02:08→17:26)
[2018-09-12] MEDS: methylPREDNISolone NA SUCC 40 MG/1 ML VIAL IVPUSH SCH ×3 (02:15→17:24)
[2018-09-12] MEDS ORDERED: VANCOMYCIN 1 GRAM (PRE-DOCKED) 1,000 MG/250 ML BAG IVPB SCH (03:00)
[2018-09-12] MEDS: INSULIN SLIDING SCALE (NOVOLOG) 1 VIAL SQ SCH ×3 (05:50→17:24)
[2018-09-12] MEDS: clonazePAM 0.5 MG TABLET PO SCH ×3 (05:50→23:13)
[2018-09-12] MEDS: ALBUTEROL SO4 2.5/IPRATROPIUM 0.5 INH SOL 3 ML VIAL.NEB. NEB SCH ×4 (07:35→20:35)
[2018-09-12 07:37] LABS: BASO % 0.1 % (0-2.0); HEMATOCRIT 37.3 % (35.4-49); HEMOGLOBIN 12.6 GM/dL (11.7-16.9); MCH 33.2 pg (25.7-33.7); MCHC 33.8 g/dl (32.0-35.9); MEAN CELL VOLUME 98.3 fl (80-96); MEAN PLT VOLUME 10.8 fl (7.5-11.1); MONO % 4.1 % (3.8-10.2); NEUT % 89.8 % (42.8-82.8); PLATELET COUNT 149 K/MM3 (134-434); WHITE BLOOD COUNT 14.3 K/mm3 (4.0-10.0)
[2018-09-12 07:57] LABS: ANION GAP 7 MMOL/L (8-16); BLOOD UREA NITROGEN 8 mg/dL (7-18); CALCIUM 8.9 mg/dL (8.5-10.1); CHLORIDE 103 mmol/L (98-107); CO2 30 mmol/L (21-32); CREATININE 0.7 mg/dL (0.55-1.3); GLUCOSE,RANDOM 176 mg/dL (74-106); SODIUM 139 mmol/L (136-145)
[2018-09-12] MEDS ORDERED: PT OWN MED DRAWER 7, Y5N ONE ×2 (10:58→18:47)
[2018-09-12] MEDS: cloBAZam 10 MG TABLET GT SCH ×2 (11:01→23:12)
[2018-09-12] MEDS: PHENobarbital 20 MG/5 ML UNIT-DOSE CUP GT SCH ×2 (11:02→23:26)
[2018-09-12] MEDS: BACLOFEN 10 MG TABLET (FP) GT SCH ×2 (11:07→23:12)
--- NOTE | 2018-09-12 11:07 | PN ---
Progress Note, Physician History of Present Illness: patient stable doing well breathing better - Current Medication List Current Medications: Active Medications Acetylcysteine (Mucomyst 20 Oral / Inh Use Only*) 100 mg NEB RQID [facility] Last Admin: 09/11/18 09:52 Dose: 100 mg Acyclovir (Zovirax Oral Suspension -) 400 mg GT BID [facility] Last Admin: 09/11/18 22:59 Dose: 400 mg Albuterol/Ipratropium (Duoneb -) 1 amp NEB RQID [facility] Last Admin: 09/12/18 07:35 Dose: 1 amp Baclofen (Lioresal -) 10 mg GT BID [facility] Last Admin: 09/11/18 22:30 Dose: 10 mg Clobazam (Onfi -) 5 mg GT BID [facility] Last Admin: 09/11/18 22:31 Dose: 5 mg Clonazepam (Klonopin -) 1.5 mg PO TID [facility] Last Admin: 09/12/18 05:50 Dose: 1.5 mg Diazepam (Diastat Rectal Gel -) 10 mg RC PRN PRN PRN Reason: <Seizures> Enoxaparin Sodium (Lovenox -) 40 mg SQ DAILY [facility] Last Admin: 09/11/18 11:08 Dose: 40 mg Fluticasone Propionate (Flonase -) 2 spray NS DAILY [facility] Last Admin: 09/11/18 11:05 Dose: Not Given Vancomycin HCl (Vancomycin (Pre-Docked)) 1,000 mg in 250 mls @ 166.667 mls/hr IVPB Q12H [facility]; Protocol Piperacillin Sod/Tazobactam (Sod 3.375 gm/ Dextrose) 50 mls @ 100 mls/hr IVPB Q8H-IV [facility]; Protocol Last Admin: 09/12/18 02:08 Dose: 100 mls/hr Dextrose (D5w -) 1,000 mls @ 42 mls/hr IV Q23H [facility] Last Admin: 09/11/18 13:00 Dose: 42 mls/hr Insulin Aspart (Novolog Vial Sliding Scale -) 1 vial SQ Q6HPO [facility]; Protocol Last Admin: 09/12/18 05:50 Dose: 2 unit Lactobacillus Acidophilus (Bacid -) 1 tab GT HS [facility] Last Admin: 09/11/18 22:28 Dose: 1 tab Lamotrigine (Lamictal -) 200 mg GT BID [facility] Last Admin: 09/11/18 22:30 Dose: 200 mg Magnesium Hydroxide (Milk Of Magnesia -) 20 ml GT BID [facility] Last Admin: 09/11/18 22:30 Dose: 20 ml Methylprednisolone Sodium Succinate (Solu-Medrol -) 40 mg IVPUSH Q8H-IV [facility] Last Admin: 09/12/18 02:15 Dose: 40 mg Mometasone Furoate (Asmanex 220mcg -) 1 puff IH HS [facility] Last Admin: 09/11/18 23:50 Dose: Not Given Phenobarbital (Phenobarbital Liquid -) 45 mg GT BID [facility] Last Admin: 09/11/18 22:36 Dose: 45 mg Ranitidine HCl (Zantac Oral Solution -) 75 mg GT BID [facility] Last Admin: 09/11/18 22:32 Dose: 75 mg - Objective Vital Signs: Vital Signs Temperature 98.1 F 09/12/18 06:00 Pulse Rate 71 09/12/18 06:00 Respiratory Rate 20 09/12/18 06:00 Blood Pressure 96/34 L 09/12/18 06:00 O2 Sat by Pulse Oximetry (%) 97 09/12/18 09:45 Constitutional: Yes: No Distress, Calm Cardiovascular: Yes: Regular Rate and Rhythm Respiratory: Yes: Regular, Other (on mask) Gastrointestinal: Yes: Normal Bowel Sounds, Soft Musculoskeletal: Yes: WNL Extremities: Yes: Other Neurological: Yes: Alert, Other Labs: CBC, BMP 09/12/18 06:20 09/12/18 06:20 INR, PTT INR 1.15 (0.83-1.09) H 09/10/18 19:18 Assessment/Plan patient with aspiration pneumonia now doing better continue abx resp support all reports noted nutrition
[2018-09-12] MEDS: RANITIDINE HCL 150 MG/10 ML UNIT-DOSE GT SCH ×2 (11:08→23:31)
[2018-09-12] MEDS: MAGNESIUM HYDROX 2400MG/30ML ORAL SUSPENSION 30 ML CUP GT SCH ×2 (11:08→23:19)
[2018-09-12] MEDS: ENOXAPARIN NA (PORCINE) 40 MG/0.4 ML DISP.SYRIN SQ SCH (11:09)
[2018-09-12] MEDS: ACYCLOVIR 200 MG/5 ML LIQUID GT SCH ×2 (11:12→23:32)
[2018-09-12] MEDS: lamoTRIgine 100 MG TABLET (FP) GT SCH ×2 (11:12→23:16)
--- NOTE | 2018-09-12 11:26 | PN ---
Physical Exam: SUBJECTIVE: Patient seen and examined at bedside. Laying comfortably in bed on non-rebreather, no obvious signs of distress, patient is non-verbal. OBJECTIVE: Vital Signs Period Temp Pulse Resp BP Sys/Linares Pulse Ox Last 24 Hr 97.5 F-98.4 F 71-95 18-92 96-129/34-83 97-100 GENERAL: Not A&O HEAD: Normal with no signs of gross trauma. EYES: PERRL ENT: Ears normal, nares patent, oropharynx clear without exudates, moist mucous membranes. LUNGS: Clear breath sounds, no obvious rhales or rhonchi HEART: RRR, S1 and S2 present ABDOMEN: Soft, nontender, nondistended, hypoactive bowel sounds, no guarding, no rebound, G-tube in place. EXTREMITIES: 2+ dorsal pedal pulses, warm, well-perfused, no edema, decorticate posturing, no calf tenderness Laboratory Results - last 24 hr 09/11/18 09/11/18 09/11/18 11:45 14:51 18:30 WBC RBC Hgb Hct MCV MCH MCHC RDW Plt Count MPV Absolute Neuts (auto) Neutrophils % Lymphocytes % Monocytes % Eosinophils % Basophils % Nucleated RBC % Sodium Potassium Chloride Carbon Dioxide Anion Gap BUN Creatinine Creat Clearance w eGFR POC Glucometer 208 112 132 Random Glucose Calcium 09/11/18 09/12/18 09/12/18 23:26 05:36 06:20 WBC 14.3 H RBC 3.80 L Hgb 12.6 Hct 37.3 MCV 98.3 H MCH 33.2 MCHC 33.8 RDW 15.0 Plt Count 149 MPV 10.8 Absolute Neuts (auto) 12.9 H Neutrophils % 89.8 H Lymphocytes % 6.0 L D Monocytes % 4.1 Eosinophils % 0.0 D Basophils % 0.1 Nucleated RBC % 0 Sodium Potassium Chloride Carbon Dioxide Anion Gap BUN Creatinine Creat Clearance w eGFR POC Glucometer 187 158 Random Glucose Calcium 09/12/18 06:20 WBC RBC Hgb Hct MCV MCH MCHC RDW Plt Count MPV Absolute Neuts (auto) Neutrophils % Lymphocytes % Monocytes % Eosinophils % Basophils % Nucleated RBC % Sodium 139 Potassium 4.0 Chloride 103 Carbon Dioxide 30 Anion Gap 7 L BUN 8 Creatinine 0.7 Creat Clearance w eGFR 141.02 POC Glucometer Random Glucose 176 H Calcium 8.9 Active Medications Generic Name Dose Route Start Last Admin Trade Name Freq PRN Reason Stop Dose Admin Acetylcysteine 100 mg 09/11/18 08:00 09/11/18 09:52 Mucomyst 20 Oral / Inh Use Only* NEB 100 mg RQID JORGE Administration Acyclovir 400 mg 09/11/18 10:00 09/12/18 11:12 Zovirax Oral Suspension - GT 400 mg BID [facility] Administration Albuterol/Ipratropium 1 amp 09/11/18 08:00 09/12/18 07:35 Duoneb - NEB 1 amp RQID [facility] Administration Baclofen 10 mg 09/11/18 10:00 09/12/18 11:07 Lioresal - GT 10 mg BID [facility] Administration Clobazam 5 mg 09/11/18 10:00 09/12/18 11:01 Onfi - GT 5 mg BID [facility] Administration Clonazepam 1.5 mg 09/11/18 06:00 09/12/18 05:50 Klonopin - PO 1.5 mg TID J[facility] Administration Diazepam 10 mg 09/11/18 00:21 Diastat Rectal Gel - RC PRN PRN <Seizures> Enoxaparin Sodium 40 mg 09/11/18 10:00 09/12/18 11:09 Lovenox - SQ 40 mg DAILY [facility] Administration Fluticasone Propionate 2 spray 09/11/18 10:00 09/11/18 11:05 Flonase - NS Not Given DAILY [facility] Piperacillin Sod/Tazobactam 50 mls @ 100 mls/hr 09/11/18 18:00 09/12/18 11:16 Sod 3.375 gm/ Dextrose IVPB 100 mls/hr Q8H-IV [facility] Administration Protocol Dextrose 1,000 mls @ 42 mls/hr 09/11/18 12:45 09/11/18 13:00 D5w - IV 42 mls/hr Q23H [facility] Administration Insulin Aspart 1 vial 09/11/18 05:10 09/12/18 05:50 Novolog Vial Sliding Scale - SQ 2 unit Q6HPO [facility] Administration Protocol Lactobacillus Acidophilus 1 tab 09/11/18 22:00 09/11/18 22:28 Bacid - GT 1 tab HS [facility] Administration Lamotrigine 200 mg 09/11/18 10:00 09/12/18 11:12 Lamictal - GT 200 mg BID [facility] Administration Magnesium Hydroxide 20 ml 09/11/18 10:00 09/12/18 11:08 Milk Of Magnesia - GT 20 ml BID [facility] Administration Methylprednisolone Sodium Succinate 40 mg 09/11/18 02:00 09/12/18 11:14 Solu-Medrol - IVPUSH 40 mg Q8H-IV [facility] Administration Mometasone Furoate 1 puff 09/11/18 22:00 09/11/18 23:50 Asmanex 220mcg - IH Not Given HS [facility] Phenobarbital 45 mg 09/11/18 12:00 09/12/18 11:02 Phenobarbital Liquid - GT 45 mg BID [facility] Administration Ranitidine HCl 75 mg 09/11/18 10:00 09/12/18 11:08 Zantac Oral Solution - GT 75 mg BID [facility] Administration ASSESSMENT/PLAN: 23 yo M MELODY with a hx of asthma, epilepsy, mental retardation, herpes encephalitis, and multiple recent pneumonias presents to the emergency department with fever and hypoxia from [facility]. #Hypothermia and Acute Hypoxic Respiratory Failure: could have been a result of sepsis 2/2 pneumonia; temp improved t francisco cruz to maintain temp, on non-rebreather -on zosyn per ID -fluids w/ D5W -blood/urine cultures currently negative -cxr appears clear on the right but obscured by position on the left, would benefit from CT -ID consultation -chest PT #Herpes Encephalitis: -on acyclovir #Epilepsy: continue antiepileptics #FEN -D5W -recheck labs in AM -tube feeds #Prophylaxis -SCDs #Disposition -continue monitoring on med surg Visit type - Emergency Visit Emergency Visit: Yes ED Registration Date: 09/11/18 Care time: The patient presented to the Emergency Department on the above date and was hospitalized for further evaluation of their emergent condition. - New Patient This patient is new to me today: No - Critical Care Critical Care patient: No
--- NOTE | 2018-09-12 13:19 | PN ---
Teaching Attending Note Name of Resident: Clifford No ATTENDING PHYSICIAN STATEMENT I saw and evaluated the patient. I reviewed the resident's note and discussed the case with the resident. I agree with the resident's findings and plan as documented. SUBJECTIVE: the aid stated that he is doing well, a lot more responsive than normal OBJECTIVE: patient is responsive to name contracted + feeding tube present ASSESSMENT AND PLAN: 23 yo M BIBA with a hx of asthma, epilepsy, mental retardation, herpes encephalitis, and multiple recent pneumonias presents to the emergency department with fever and hypoxia from [facility]. #Hypothermia and Acute Hypoxic Respiratory Failure: could have been a result of sepsis 2/2 pneumonia; temp improved t francisco cruz to maintain temp, on non-rebreather -on pippercillin/tazobactam per ID -fluids w/ D5W -blood/urine cultures currently negative -cxr appears clear on the right but obscured by position on the left, would benefit from CT -ID consultation -chest PT Neurtophilia - improving #Herpes Encephalitis: -on acyclovir #Epilepsy: continue antiepileptics
[2018-09-12] MEDS: DEXTROSE 5%-WATER - 1,000 ML IV SCH (15:51)
[2018-09-12] MEDS ORDERED: INSULIN (NOVOLOG) ASPART 100 UNITS/ML 10ML VIAL ONE (18:45)
[2018-09-12] MEDS: FLUTICASONE PROP 0.05% 16 GM NASAL SPRAY NS SCH (18:52)
[2018-09-12] MEDS: LACTOBACILLUS ACIDOPHILUS 1 TABLET GT SCH (23:12)
[2018-09-12] MEDS: MOMETASONE FUROATE 220 MCG/IH INHALER IH SCH (23:14)
[2018-09-12] MEDS: MULTIVIT-MINERALS ORAL LIQUID PO SCH (23:15)
[2018-09-13] MEDS: INSULIN SLIDING SCALE (NOVOLOG) 1 VIAL SQ SCH ×4 (00:04→17:27)
[2018-09-13] MEDS ORDERED: PIPERACILLIN/TAZOBACTAM 3.375 GM VIAL IVPB ONE ×3 (01:53→16:57)
[2018-09-13] MEDS ORDERED: DEXTROSE 5%-WATER - 50 ML IVPB ONE ×3 (01:53→16:57)
[2018-09-13] MEDS: PIPERACILLIN/TAZOB 3.375 GM 3.375 GM in DEXTROSE 5%-WATER - 50 ML IVPB SCH ×3 (02:00→17:26)
[2018-09-13] MEDS: methylPREDNISolone NA SUCC 40 MG/1 ML VIAL IVPUSH SCH ×2 (02:01→10:29)
[2018-09-13] MEDS: clonazePAM 0.5 MG TABLET PO SCH ×3 (06:12→22:41)
[2018-09-13] MEDS: ALBUTEROL SO4 2.5/IPRATROPIUM 0.5 INH SOL 3 ML VIAL.NEB. NEB SCH ×4 (07:05→20:00)
[2018-09-13] MEDS: DEXTROSE 5%-WATER - 1,000 ML IV SCH ×2 (10:16→17:26)
[2018-09-13] MEDS: FLUTICASONE PROP 0.05% 16 GM NASAL SPRAY NS SCH (10:20)
[2018-09-13] MEDS: ACYCLOVIR 200 MG/5 ML LIQUID GT SCH ×2 (10:21→23:01)
[2018-09-13] MEDS: lamoTRIgine 100 MG TABLET (FP) GT SCH ×2 (10:21→22:44)
[2018-09-13] MEDS ORDERED: PT OWN MED DRAWER 7, Y5N ONE ×2 (10:26→22:24)
[2018-09-13] MEDS: MAGNESIUM HYDROX 2400MG/30ML ORAL SUSPENSION 30 ML CUP GT SCH ×2 (10:28→22:44)
[2018-09-13] MEDS: RANITIDINE HCL 150 MG/10 ML UNIT-DOSE GT SCH ×2 (10:28→22:44)
[2018-09-13] MEDS: BACLOFEN 10 MG TABLET (FP) GT SCH ×2 (10:28→22:44)
[2018-09-13] MEDS: cloBAZam 10 MG TABLET GT SCH ×2 (10:29→22:40)
[2018-09-13] MEDS: ENOXAPARIN NA (PORCINE) 40 MG/0.4 ML DISP.SYRIN SQ SCH (10:29)
[2018-09-13] MEDS: PHENobarbital 20 MG/5 ML UNIT-DOSE CUP GT SCH ×2 (10:29→22:39)
--- NOTE | 2018-09-13 13:34 | PN ---
Progress Note, Physician History of Present Illness: patient stable breathing better - Current Medication List Current Medications: Active Medications Acetylcysteine (Mucomyst 20 Oral / Inh Use Only*) 100 mg NEB RQID [facility] Last Admin: 09/11/18 09:52 Dose: 100 mg Acyclovir (Zovirax Oral Suspension -) 400 mg GT BID [facility] Last Admin: 09/13/18 10:21 Dose: 400 mg Albuterol/Ipratropium (Duoneb -) 1 amp NEB RQID [facility] Last Admin: 09/13/18 11:35 Dose: 1 amp Baclofen (Lioresal -) 10 mg GT BID [facility] Last Admin: 09/13/18 10:28 Dose: 10 mg Clobazam (Onfi -) 5 mg GT BID [facility] Last Admin: 09/13/18 10:29 Dose: 5 mg Clonazepam (Klonopin -) 1.5 mg PO TID [facility] Last Admin: 09/13/18 06:12 Dose: 1.5 mg Diazepam (Diastat Rectal Gel -) 10 mg RC PRN PRN PRN Reason: <Seizures> Enoxaparin Sodium (Lovenox -) 40 mg SQ DAILY [facility] Last Admin: 09/13/18 10:29 Dose: 40 mg Fluticasone Propionate (Flonase -) 2 spray NS DAILY [facility] Last Admin: 09/13/18 10:20 Dose: 2 spray Piperacillin Sod/Tazobactam (Sod 3.375 gm/ Dextrose) 50 mls @ 100 mls/hr IVPB Q8H-IV [facility]; Protocol Last Admin: 09/13/18 10:28 Dose: 100 mls/hr Dextrose (D5w -) 1,000 mls @ 42 mls/hr IV Q23H [facility] Last Admin: 09/12/18 15:51 Dose: 42 mls/hr Insulin Aspart (Novolog Vial Sliding Scale -) 1 vial SQ Q6HPO [facility]; Protocol Last Admin: 09/13/18 12:20 Dose: 2 unit Lactobacillus Acidophilus (Bacid -) 1 tab GT HS [facility] Last Admin: 09/12/18 23:12 Dose: 1 tab Lamotrigine (Lamictal -) 200 mg GT BID [facility] Last Admin: 09/13/18 10:21 Dose: 200 mg Magnesium Hydroxide (Milk Of Magnesia -) 20 ml GT BID [facility] Last Admin: 09/13/18 10:28 Dose: 20 ml Methylprednisolone Sodium Succinate (Solu-Medrol -) 40 mg IVPUSH Q8H-IV [facility] Last Admin: 09/13/18 10:29 Dose: 40 mg Mometasone Furoate (Asmanex 220mcg -) 1 puff IH HS [facility] Last Admin: 09/12/18 23:14 Dose: Not Given Phenobarbital (Phenobarbital Liquid -) 45 mg GT BID [facility] Last Admin: 09/13/18 10:29 Dose: 45 mg Ranitidine HCl (Zantac Oral Solution -) 75 mg GT BID [facility] Last Admin: 09/13/18 10:28 Dose: 75 mg - Objective Vital Signs: Vital Signs Temperature 98.5 F 09/13/18 06:00 Pulse Rate 76 09/13/18 06:00 Respiratory Rate 18 09/13/18 06:00 Blood Pressure 120/48 L 09/13/18 06:00 O2 Sat by Pulse Oximetry (%) 99 09/13/18 06:57 Constitutional: Yes: No Distress, Calm, Thin Cardiovascular: Yes: Regular Rate and Rhythm Respiratory: Yes: Regular, Poor Air Entry (bases) Gastrointestinal: Yes: Normal Bowel Sounds, Soft, Other (g tube in place) Musculoskeletal: Yes: WNL Extremities: Yes: Other (contracted) Neurological: Yes: Alert, Other Labs: CBC, BMP 09/12/18 06:20 09/12/18 06:20 INR, PTT INR 1.15 (0.83-1.09) H 09/10/18 19:18 Assessment/Plan 23 yo M BIBA with a hx of asthma, epilepsy, mental retardation, herpes encephalitis, and multiple recent pneumonias presents to the emergency department with fever and hypoxia from [facility]. hypothermia sepsis mental retardation resp difficulty plan continue ab avoid aspiration abx rest as per the team
--- NOTE | 2018-09-13 15:51 | PN ---
Physical Exam: SUBJECTIVE: Patient seen and examined. Pt. had lots of coughing spells overnight even after suctioning. PT. did not require Bipap overnight, no fevers or BM overnight. OBJECTIVE: Vital Signs Period Temp Pulse Resp BP Sys/Linares Pulse Ox Last 24 Hr 98.3 F-99.1 F 76-94 18-20 91-126/33-88 97-99 GENERAL: The patient is awake, alert, in no acute distress. HEAD: Normal with no signs of trauma. EYES: PERRL, sclera anicteric, conjunctiva clear. ENT: Ears normal, nares patent, oropharynx clear without exudates, moist mucous membranes. LUNGS: Breath sounds equal, clear to auscultation bilaterally, no wheezes, no crackles, no accessory muscle use. HEART: Regular rate and rhythm, S1, S2 without murmur ABDOMEN: Soft, nontender, nondistended, normoactive bowel sounds. EXTREMITIES: 2+ radial pulses, warm, well-perfused, no calf tenderness, no edema. NEUROLOGICAL: Awake and alert PSYCH: Normal mood, normal affect for patient. SKIN: Warm, dry, normal turgor, no rashes or lesions noted Laboratory Results - last 24 hr 09/12/18 09/12/18 09/13/18 17:02 21:39 05:43 POC Glucometer 158 140 146 09/13/18 12:09 POC Glucometer 170 Active Medications Home Medications Medication Instructions Recorded Acyclovir 400 mg GT BID 04/25/17 Baclofen 10 mg GT BID 04/25/17 Clobazam [Onfi -] 10 mg GT HS 04/25/17 Clonazepam 1.5 mg GT TID 04/25/17 Fluticasone Propionate [Flovent 50 mcg IH DAILY 04/25/17 Diskus] Ipratropium/Albuterol Sulfate 3 ml IH Q6H 04/25/17 [Iprat-Albut 0.5-3(2.5) mg/3 ml] Lactobacillus Acidophilus 1 each GT HS 04/25/17 [Acidophilus] Lamotrigine 200 mg GT BID 04/25/17 Magnesium Hydrox 2400MG/30Ml [Milk 20 ml GT BID 04/25/17 of Magnesia -] Multivitamin [Poly-Vitamin] 1 each GT HS 04/25/17 Phenobarbital 48.6 mg GT BID 04/25/17 Acetylcysteine Po/INH 20% 100 mg NEB RQID vial 03/29/18 [Mucomyst 20 Oral / INH Use Only*] Ranitidine [Zantac -] 75 mg GT BID #0 tab 03/29/18 Diazepam Rectal Gel [Diastat 10 mg IN PRN PRN 05/23/18 Rectal Gel -] Fructooligosaccharides/Polydex 15 gm GT HS 05/23/18 [Fiber-Stat 15 gm/30 ml Liquid] Protein Supplement [Promod] 946 ml PO DAILY 05/23/18 Sodium Phosphate/Na Biphos [Fleet 133 ml RC ONCE PRN 05/23/18 Adult Rectal Enema -] [place] Saline Nasal Gel [place] 1 applic BID 09/11/18 Bisacodyl Suppository 10 mg IN Q2D PRN 09/11/18 Current Medications Acetylcysteine (Mucomyst 20 Oral / Inh Use Only*) 100 mg NEB RQID [facility] Last Admin: 09/11/18 09:52 Dose: 100 mg Acyclovir (Zovirax Oral Suspension -) 400 mg GT BID [facility] Last Admin: 09/13/18 10:21 Dose: 400 mg Albuterol/Ipratropium (Duoneb -) 1 amp NEB RQID [facility] Last Admin: 09/13/18 11:35 Dose: 1 amp Baclofen (Lioresal -) 10 mg GT BID [facility] Last Admin: 09/13/18 10:28 Dose: 10 mg Clobazam (Onfi -) 5 mg GT BID [facility] Last Admin: 09/13/18 10:29 Dose: 5 mg Clonazepam (Klonopin -) 1.5 mg PO TID [facility] Last Admin: 09/13/18 15:05 Dose: 1.5 mg Diazepam (Diastat Rectal Gel -) 10 mg RC PRN PRN PRN Reason: <Seizures> Enoxaparin Sodium (Lovenox -) 40 mg SQ DAILY [facility] Last Admin: 09/13/18 10:29 Dose: 40 mg Fluticasone Propionate (Flonase -) 2 spray NS DAILY [facility] Last Admin: 09/13/18 10:20 Dose: 2 spray Piperacillin Sod/Tazobactam (Sod 3.375 gm/ Dextrose) 50 mls @ 100 mls/hr IVPB Q8H-IV [facility]; Protocol Last Admin: 09/13/18 10:28 Dose: 100 mls/hr Dextrose (D5w -) 1,000 mls @ 42 mls/hr IV Q23H [facility] Last Admin: 09/13/18 10:16 Dose: Not Given Insulin Aspart (Novolog Vial Sliding Scale -) 1 vial SQ Q6HPO [facility]; Protocol Last Admin: 09/13/18 12:20 Dose: 2 unit Lactobacillus Acidophilus (Bacid -) 1 tab GT HS [facility] Last Admin: 09/12/18 23:12 Dose: 1 tab Lamotrigine (Lamictal -) 200 mg GT BID [facility] Last Admin: 09/13/18 10:21 Dose: 200 mg Magnesium Hydroxide (Milk Of Magnesia -) 20 ml GT BID [facility] Last Admin: 09/13/18 10:28 Dose: 20 ml Mometasone Furoate (Asmanex 220mcg -) 1 puff IH [facility] Last Admin: 09/12/18 23:14 Dose: Not Given Phenobarbital (Phenobarbital Liquid -) 45 mg GT BID [facility] Last Admin: 09/13/18 10:29 Dose: 45 mg Ranitidine HCl (Zantac Oral Solution -) 75 mg GT BID [facility] Last Admin: 09/13/18 10:28 Dose: 75 mg ASSESSMENT/PLAN: 23 y.o. M BIBA with a Hx of asthma, epilepsy, mental retardation, herpes encephalitis, and multiple recent pneumonias presents to the emergency department with fever and hypoxia from [facility]. #Hypothermia and Acute Hypoxic Respiratory Failure: sepsis 2/2 pneumonia Currently saturating @ 93% on 2L NC w/ Bipap and NRB at bedside, keep O2 above 92% C/w zosyn per ID c/w IVF Prelim blood/urine cultures negative Cxr shows LLL opacification Chest CT shows LLL congestion likely pleural effusion + pneumonia and minimal pleural effusion in RLL. ID consultation (Dr. Douglas) appreciated c/w chest PT PRN c/w Mucomyst c/w Duonebs #Herpes Encephalitis: c/w acyclovir #Epilepsy continue antiepileptics #FEN c/w D5W @42ml/Hr recheck labs in AM c/w Tube feeds #Prophylaxis Lovenox 40mg SQ #Disposition Med/Surg D/C planning Visit type - Emergency Visit Emergency Visit: Yes ED Registration Date: 09/11/18 Care time: The patient presented to the Emergency Department on the above date and was hospitalized for further evaluation of their emergent condition. - New Patient This patient is new to me today: Yes Date on this admission: 09/13/18 - Critical Care Critical Care patient: No - Discharge Referral Referred to [facility] Med P.C.: No
[2018-09-13] MEDS ORDERED: INSULIN (NOVOLOG) ASPART 100 UNITS/ML 10ML VIAL ONE (16:57)
--- NOTE | 2018-09-13 18:22 | PN ---
Teaching Attending Note Name of Resident: Juan Miguel Black ATTENDING PHYSICIAN STATEMENT I saw and evaluated the patient. I reviewed the resident's note and discussed the case with the resident. I agree with the resident's findings and plan as documented. SUBJECTIVE: Non-verbal, non-participatroy in medical interview. OBJECTIVE: Awake, non-interactive. Appears comfortable. SpO2 93% on 2L via NC Last Vital Signs Temp Pulse Resp BP Pulse Ox 98.3 F 81 19 99/41 L 99 09/13/18 15:21 09/13/18 18:06 09/13/18 18:06 09/13/18 18:06 09/13/18 10:16 Heart - S1, S2, RRR Lungs - decreased air entry at bases Abdomen - soft, non-tender. Bowel Sounds normal. PEG in situ Extremities - no edema, no calf tenderness. Contractures+ Laboratory Results - last 24 hr 09/12/18 09/13/18 09/13/18 21:39 05:43 12:09 POC Glucometer 140 146 170 09/13/18 17:20 POC Glucometer 140 Current Medications Generic Name Dose Route Start Last Admin Trade Name Freq PRN Reason Stop Dose Admin Acetylcysteine 100 mg 09/11/18 08:00 09/11/18 09:52 Mucomyst 20 Oral / Inh Use Only* NEB 100 mg RQID JORGE Administration Acyclovir 400 mg 09/11/18 10:00 09/13/18 10:21 Zovirax Oral Suspension - GT 400 mg BID JORGE Administration Albuterol/Ipratropium 1 amp 09/11/18 08:00 09/13/18 16:00 Duoneb - NEB 1 amp RQID JORGE Administration Baclofen 10 mg 09/11/18 10:00 09/13/18 10:28 Lioresal - GT 10 mg BID JORGE Administration Clobazam 5 mg 09/11/18 10:00 09/13/18 10:29 Onfi - GT 5 mg BID JORGE Administration Clonazepam 1.5 mg 09/11/18 06:00 09/13/18 15:05 Klonopin - PO 1.5 mg TID JORGE Administration Diazepam 10 mg 09/11/18 00:21 Diastat Rectal Gel - RC PRN PRN <Seizures> Enoxaparin Sodium 40 mg 09/11/18 10:00 09/13/18 10:29 Lovenox - SQ 40 mg DAILY JORGE Administration Fluticasone Propionate 2 spray 09/11/18 10:00 09/13/18 10:20 Flonase - NS 2 spray DAILY [facility]GE Administration Piperacillin Sod/Tazobactam 50 mls @ 100 mls/hr 09/11/18 18:00 09/13/18 17:26 Sod 3.375 gm/ Dextrose IVPB 100 mls/hr Q8H-IV JORGE Administration Protocol Dextrose 1,000 mls @ 42 mls/hr 09/11/18 12:45 09/13/18 17:26 D5w - IV 42 mls/hr Q23H JORGE Administration Insulin Aspart 1 vial 09/11/18 05:10 09/13/18 17:27 Novolog Vial Sliding Scale - SQ Not Given Q6HPO J[facility]GE Protocol Lactobacillus Acidophilus 1 tab 09/11/18 22:00 09/12/18 23:12 Bacid - GT 1 tab HS [facility]ORGE Administration Lamotrigine 200 mg 09/11/18 10:00 09/13/18 10:21 Lamictal - GT 200 mg BID JORGE Administration Magnesium Hydroxide 20 ml 09/11/18 10:00 09/13/18 10:28 Milk Of Magnesia - GT 20 ml BID JORGE Administration Mometasone Furoate 1 puff 09/11/18 22:00 09/12/18 23:14 Asmanex 220mcg - IH Not Given HS JROGE Phenobarbital 45 mg 09/11/18 12:00 09/13/18 10:29 Phenobarbital Liquid - GT 45 mg BID JORGE Administration Ranitidine HCl 75 mg 09/11/18 10:00 09/13/18 10:28 Zantac Oral Solution - GT 75 mg BID JORGE Administration ASSESSMENT AND PLAN: 23 year old male resident of [facility] with Developmental Delay and Cognitive Impairment, Asthma, Epilepsy, history of herpes encephalitis, and multiple recent pneumonias presented to the emergency department with fever and hypoxia from [facility]. 1. Sepsis and Acute Hypoxic Respiratory Failure secondary to Pneumonia ? Aspiration Down-titrate O2 to NC and monitor SpO2. No further episodes of hypothermia, Hemodynamically Stable. Sepsis resolved. Leukocytosis resolving. Urine Legionella /Step Ags neg Solumnedrol discontinued. Bloo/Urine Cx negative 2. Hx Herpes Encephalitis - on Acyclovir. 3. Seizure Disorder - Continue Lamictal, Phenobarbital. GI Px - Ranitidine DVT Px - Lovenox SQ
[2018-09-13] MEDS: MOMETASONE FUROATE 220 MCG/IH INHALER IH SCH (22:42)
[2018-09-13] MEDS: LACTOBACILLUS ACIDOPHILUS 1 TABLET GT SCH (22:42)
[2018-09-13] MEDS: MULTIVIT-MINERALS ORAL LIQUID PO SCH (22:43)
[2018-09-14] MEDS: INSULIN SLIDING SCALE (NOVOLOG) 1 VIAL SQ SCH ×3 (00:54→12:39)
[2018-09-14] MEDS ORDERED: DEXTROSE 5%-WATER - 50 ML IVPB ONE ×2 (00:58→09:47)
[2018-09-14] MEDS ORDERED: PIPERACILLIN/TAZOBACTAM 3.375 GM VIAL IVPB ONE ×2 (00:58→09:47)
[2018-09-14] MEDS: PIPERACILLIN/TAZOB 3.375 GM 3.375 GM in DEXTROSE 5%-WATER - 50 ML IVPB SCH ×3 (01:23→10:30)
[2018-09-14] MEDS: clonazePAM 0.5 MG TABLET PO SCH ×2 (07:03→14:22)
[2018-09-14 07:28] LABS: HEMATOCRIT 36.6 % (35.4-49); HEMOGLOBIN 12.5 GM/dL (11.7-16.9); MCH 33.8 pg (25.7-33.7); MEAN CELL VOLUME 99.4 fl (80-96); PLATELET COUNT 169 K/MM3 (134-434); RBC 3.68 M/mm3 (4.00-5.60); RDW 14.7 % (11.9-15.9); WHITE BLOOD COUNT 9.5 K/mm3 (4.0-10.0)
[2018-09-14] MEDS ORDERED: DOCUSATE NA 100 MG/10 ML UNIT-DOSE CUPS GT PRN (07:57)
[2018-09-14] MEDS: ALBUTEROL SO4 2.5/IPRATROPIUM 0.5 INH SOL 3 ML VIAL.NEB. NEB SCH (08:00)
[2018-09-14 08:05] LABS: ANION GAP 7 MMOL/L (8-16); BLOOD UREA NITROGEN 14 mg/dL (7-18); CALCIUM 9.1 mg/dL (8.5-10.1); CHLORIDE 102 mmol/L (98-107); CO2 33 mmol/L (21-32); CREATININE 0.6 mg/dL (0.55-1.3); GLUCOSE,RANDOM 101 mg/dL (74-106); MAGNESIUM 2.1 mg/dL (1.8-2.4); PHOSPHOROUS 4.3 mg/dL (2.5-4.9); POTASSIUM 3.8 mmol/L (3.5-5.1); SODIUM 141 mmol/L (136-145)
[2018-09-14] MEDS ORDERED: SENNOSIDES 8.8 MG/5 ML BULK BOTTLE GT ONE (09:00)
[2018-09-14] MEDS ORDERED: PT OWN MED DRAWER 7, Y5N ONE (09:47)
[2018-09-14] MEDS: lamoTRIgine 100 MG TABLET (FP) GT SCH (10:23)
[2018-09-14] MEDS: MAGNESIUM HYDROX 2400MG/30ML ORAL SUSPENSION 30 ML CUP GT SCH (10:23)
[2018-09-14] MEDS: cloBAZam 10 MG TABLET GT SCH (10:23)
[2018-09-14] MEDS: RANITIDINE HCL 150 MG/10 ML UNIT-DOSE GT SCH (10:24)
[2018-09-14] MEDS: BACLOFEN 10 MG TABLET (FP) GT SCH (10:24)
[2018-09-14] MEDS: PHENobarbital 20 MG/5 ML UNIT-DOSE CUP GT SCH (10:25)
[2018-09-14] MEDS: ENOXAPARIN NA (PORCINE) 40 MG/0.4 ML DISP.SYRIN SQ SCH (10:26)
[2018-09-14] MEDS: ACYCLOVIR 200 MG/5 ML LIQUID GT SCH (10:27)
[2018-09-14] MEDS: FLUTICASONE PROP 0.05% 16 GM NASAL SPRAY NS SCH (10:52)
[2018-09-14] MEDS ORDERED: ACETYLCYSTEINE 20% 200MG/ML 4 ML VIAL *FOR ORAL / INH USE ONLY NEB SCH (11:08)
[2018-09-14] MEDS ORDERED: BISACODYL 10 MG SUPP.RECT RC PRN (12:26)
--- NOTE | 2018-09-14 12:35 | PN ---
Progress Note, Physician History of Present Illness: patient dropping his oxygen 84 85 on room air - Current Medication List Current Medications: Active Medications Acetylcysteine (Mucomyst 20 Oral / Inh Use Only*) 100 mg NEB RQID JORGE Acyclovir (Zovirax Oral Suspension -) 400 mg GT BID [facility] Last Admin: 09/14/18 10:27 Dose: 400 mg Albuterol/Ipratropium (Duoneb -) 1 amp NEB RQID [facility] Last Admin: 09/14/18 08:00 Dose: 1 amp Baclofen (Lioresal -) 10 mg GT BID [facility] Last Admin: 09/14/18 10:24 Dose: 10 mg Bisacodyl (Dulcolax Suppository -) 10 mg RC Q2D PRN PRN Reason: if no BM in 2 days Clobazam (Onfi -) 5 mg GT BID [facility] Last Admin: 09/14/18 10:23 Dose: 5 mg Clonazepam (Klonopin -) 1.5 mg PO TID [facility] Last Admin: 09/14/18 07:03 Dose: 1.5 mg Docusate Sodium (Colace Liquid -) 100 mg GT DAILY PRN PRN Reason: CONSTIPATION Enoxaparin Sodium (Lovenox -) 40 mg SQ DAILY [facility] Last Admin: 09/14/18 10:26 Dose: 40 mg Fluticasone Propionate (Flonase -) 2 spray NS DAILY [facility] Last Admin: 09/14/18 10:52 Dose: 2 spray Piperacillin Sod/Tazobactam (Sod 3.375 gm/ Dextrose) 50 mls @ 100 mls/hr IVPB Q8H-IV [facility]; Protocol Last Admin: 09/14/18 10:26 Dose: 100 mls/hr Insulin Aspart (Novolog Vial Sliding Scale -) 1 vial SQ Q6HPO [facility]; Protocol Last Admin: 09/14/18 07:03 Dose: Not Given Lactobacillus Acidophilus (Bacid -) 1 tab GT HS [facility] Last Admin: 09/13/18 22:42 Dose: 1 tab Lamotrigine (Lamictal -) 200 mg GT BID [facility] Last Admin: 09/14/18 10:23 Dose: 200 mg Magnesium Hydroxide (Milk Of Magnesia -) 20 ml GT BID [facility] Last Admin: 09/14/18 10:23 Dose: 20 ml Mometasone Furoate (Asmanex 220mcg -) 1 puff IH HS [facility] Last Admin: 09/13/18 22:42 Dose: Not Given Phenobarbital (Phenobarbital Liquid -) 45 mg GT BID [facility] Last Admin: 09/14/18 10:25 Dose: 45 mg Ranitidine HCl (Zantac Oral Solution -) 75 mg GT BID [facility] Last Admin: 09/14/18 10:24 Dose: 75 mg - Objective Vital Signs: Vital Signs Temperature 98.6 F 09/14/18 03:00 Pulse Rate 54 L 09/14/18 03:00 Respiratory Rate 18 09/14/18 03:00 Blood Pressure 113/46 L 09/14/18 03:00 O2 Sat by Pulse Oximetry (%) 95 09/13/18 21:00 Constitutional: Yes: No Distress, Calm Cardiovascular: Yes: Regular Rate and Rhythm Respiratory: Yes: Poor Air Entry (bases) Gastrointestinal: Yes: Normal Bowel Sounds, Soft, Other Musculoskeletal: Yes: WNL Extremities: Yes: Other (contracted) Neurological: Yes: Alert, Other Psychiatric: Yes: Other Labs: CBC, BMP 09/14/18 06:30 09/14/18 06:30 INR, PTT INR 1.15 (0.83-1.09) H 09/10/18 19:18 Assessment/Plan 23 yo M BIBA with a hx of asthma, epilepsy, mental retardation, herpes encephalitis, and multiple recent pneumonias presents to the emergency department with fever and hypoxia from [facility]. hypothermia sepsis mental retardation resp difficulty plan will switch to po abx resp support rest as per the team
[2018-09-14 12:47] VITALS: TEMP 98.4
--- NOTE | 2018-09-14 13:33 | PN ---
Teaching Attending Note Name of Resident: Juan Miguel Black ATTENDING PHYSICIAN STATEMENT I saw and evaluated the patient. I reviewed the resident's note and discussed the case with the resident. I agree with the resident's findings and plan as documented. SUBJECTIVE: Non-verbal, non-participatory in medical interview. OBJECTIVE: Awake, non-interactive. Appears comfortable. SpO2 92% on RA Last Vital Signs Temp Pulse Resp BP Pulse Ox 98.4 F 74 19 111/44 L 95 09/14/18 09:00 09/14/18 09:00 09/14/18 09:00 09/14/18 09:00 09/13/18 21:00 Heart - S1, S2, RRR Lungs - decreased air entry at bases Abdomen - soft, non-tender. Bowel Sounds normal. PEG in situ Extremities - no edema, no calf tenderness. Contractures+ Laboratory Results - last 24 hr 09/13/18 09/13/18 09/14/18 17:20 21:18 06:30 WBC 9.5 RBC 3.68 L Hgb 12.5 Hct 36.6 MCV 99.4 H MCH 33.8 H MCHC 34.0 RDW 14.7 Plt Count 169 MPV 10.0 Sodium Potassium Chloride Carbon Dioxide Anion Gap BUN Creatinine Creat Clearance w eGFR POC Glucometer 140 124 Random Glucose Calcium Phosphorus Magnesium 09/14/18 09/14/18 09/14/18 06:30 06:40 12:08 WBC RBC Hgb Hct MCV MCH MCHC RDW Plt Count MPV Sodium 141 Potassium 3.8 Chloride 102 Carbon Dioxide 33 H Anion Gap 7 L BUN 14 Creatinine 0.6 Creat Clearance w eGFR 168.47 POC Glucometer 95 93 Random Glucose 101 Calcium 9.1 Phosphorus 4.3 Magnesium 2.1 Current Medications Generic Name Dose Route Start Last Admin Trade Name Freq PRN Reason Stop Dose Admin Acetylcysteine 100 mg 09/14/18 11:08 Mucomyst 20 Oral / Inh Use Only* NEB RQID JORGE Acyclovir 400 mg 09/11/18 10:00 09/14/18 10:27 Zovirax Oral Suspension - GT 400 mg BID JORGE Administration Albuterol/Ipratropium 1 amp 09/11/18 08:00 09/14/18 08:00 Duoneb - NEB 1 amp RQID JORGE Administration Amoxicillin/Clavulanate Potassium 1 tab 09/14/18 17:30 Augmentin - 875mg Tablet PO BID@0800,1730 JORGE Baclofen 10 mg 09/11/18 10:00 09/14/18 10:24 Lioresal - GT 10 mg BID JORGE Administration Bisacodyl 10 mg 09/14/18 12:26 Dulcolax Suppository - RC Q2D PRN if no BM in 2 days Clobazam 5 mg 09/11/18 10:00 09/14/18 10:23 Onfi - GT 5 mg BID JORGE Administration Clonazepam 1.5 mg 09/11/18 06:00 09/14/18 07:03 Klonopin - PO 1.5 mg TID JORGE Administration Docusate Sodium 100 mg 09/14/18 07:57 Colace Liquid - GT DAILY PRN CONSTIPATION Enoxaparin Sodium 40 mg 09/11/18 10:00 09/14/18 10:26 Lovenox - SQ 40 mg DAILY JORGE Administration Fluticasone Propionate 2 spray 09/11/18 10:00 09/14/18 10:52 Flonase - NS 2 spray DAILY JORGE Administration Insulin Aspart 1 vial 09/11/18 05:10 09/14/18 12:39 Novolog Vial Sliding Scale - SQ Not Given Q6HPO [facility] Protocol Lactobacillus Acidophilus 1 tab 09/11/18 22:00 09/13/18 22:42 Bacid - GT 1 tab HS JORGE Administration Lamotrigine 200 mg 09/11/18 10:00 09/14/18 10:23 Lamictal - GT 200 mg BID JORGE Administration Magnesium Hydroxide 20 ml 09/11/18 10:00 09/14/18 10:23 Milk Of Magnesia - GT 20 ml BID JORGE Administration Mometasone Furoate 1 puff 09/11/18 22:00 09/13/18 22:42 Asmanex 220mcg - IH Not Given HS JORGE Phenobarbital 45 mg 09/11/18 12:00 09/14/18 10:25 Phenobarbital Liquid - GT 45 mg BID JORGE Administration Ranitidine HCl 75 mg 09/11/18 10:00 09/14/18 10:24 Zantac Oral Solution - GT 75 mg BID JORGE Administration ASSESSMENT AND PLAN: 23 year old male resident of [facility] with Developmental Delay and Cognitive Impairment, Asthma, Epilepsy, history of herpes encephalitis, and multiple recent pneumonias presented to the emergency department with fever and hypoxia from [facility]. 1. Sepsis and Acute Hypoxic Respiratory Failure secondary to Pneumonia ? Aspiration Weaned off O2 - SpO2 92%RA, Comfortable on RA No further episodes of hypothermia, Hemodynamically Stable. Sepsis resolved. Leukocytosis resolved Urine Legionella /Step Ags neg Solumedrol discontinued. Blood/Urine Cx negative Transitioned from IV Zosyn to Augmentin (for 7 days total) 2. Hx Herpes Encephalitis - on Acyclovir. 3. Seizure Disorder - Continue Lamictal, Phenobarbital. GI Px - Ranitidine DVT Px - Lovenox SQ Medically Stable for transfer back to [facility].
[2018-09-14 14:01] VITALS: BP 105/41; PULSE 72
[2018-09-14] MEDS ORDERED: AMOX TR/POT CLAV 875MG/125MG TABLETS (FP) PO SCH (17:30)
== END 2018-09-14 14:42 | DRG 720 ==
LOC: JER 18:10 → JERBED 09-11 00:29 → J5S 09-11 11:12
PROVIDERS: ADMIT Internal Medicine
DX: A41.9 Sepsis, unspecified organism (principal); J18.9 Pneumonia, unspecified organism; G40.909 Epilepsy, unspecified, not intractable, without status epilepticus; K21.9 Gastro-esophageal reflux disease without esophagitis; K59.00 Constipation, unspecified; F72 Severe intellectual disabilities; R13.10 Dysphagia, unspecified; J96.01 Acute respiratory failure with hypoxia; R53.2 Functional quadriplegia; E16.2 Hypoglycemia, unspecified; J45.901 Unspecified asthma with (acute) exacerbation; B10.09 Other human herpesvirus encephalitis; R68.0 Hypothermia, not associated with low environmental temperature; E11.649 Type 2 diabetes mellitus with hypoglycemia without coma; Z93.1 Gastrostomy status; J90 Pleural effusion, not elsewhere classified
CPT/HCPCS: 36415; 71045-TC-FY; 71250-TC; 80048; 80053; 81003; 82803; 82962; 83036; 83605; 83735; 84100; 84443; 85025; 85027; 85610; 85730; 87040; 87086; 87633; 87899; 93005; 93010; 94640; 94660; 99285-25; J0131; J0475; J7030

== ENCOUNTER 2018-11-04 12:34 | Inpatient (IN) | payer OTHER ==
--- NOTE | 2018-11-04 13:04 | PDOC ---
Documentation entered by Clarisse Campos SCRIBE, acting as scribe for Car Johnson MD. Car Johnson MD: This documentation has been prepared by the Andres turner Adrianna, SCRIBE, under my direction and personally reviewed by me in its entirety. I confirm that the documentation accurately reflects all work, treatment, procedures, and medical decision making performed by me. Attending Attestation - Resident Resident Name: Elizabeth Collado - ED Attending Attestation I have performed the following: I have examined & evaluated the patient, The case was reviewed & discussed with the resident, I agree w/resident's findings & plan, Exceptions are as noted - HPI HPI: The patient is a 23 year old male, with a significant PMH of asthma, profound intellectual disabilities, cerebral palsy, herpes encephalitis, left hip hemarthrosis and contracture, epilepsy, chronic constipation, chronic dysphagia , GERD, and recurrent pneumonia, who presents to the ED [place] from [place] for evaluation of respiratory distress for one day. As per staff at [facility] , patient was in his normal state of health until this morning when he developed congestion, non-productive cough, and decreased O2 saturation (at 78) earlier today. The nurse administered suction and nebs without any change in O2 saturation, so he was sent to the ED for evaluation. Patient is non-verbal at baseline, and aid at bedside notes he is at his baseline behavior. Allergies: NKA, NKDA Surgical History: GT placement, left hip pinning, right hip osteotomy Social History: Profound intellectual disabilities PCP: Dr. Valentino 11/04/18 13:29 - Physicial Exam PE: Vitals: Triage vital signs reviewed General Appearance: +Intellectual delay, non-verbal and at baseline behavior. + Contracted. Head: Atraumatic Cardiac: Regular rate and rhythm, no murmurs, no rubs, no gallops Lungs: +Coarse breath sounds bilaterally. Abdomen: Soft, nondistended, nontender to palpation Skin: Warm and dry, no rashes or lesions, no rash, no petechiae Psych: Normal mood, normal affect 11/04/18 13:43 - Medical Decision Making 23 year old male, with history of asthma, profound intellectual disabilities, cerebral palsy, herpes encephalitis, left hip hemarthrosis and contracture, epilepsy, chronic constipation, chronic dysphagia, GERD, and recurrent pneumonia , who presents to the ED for respiratory distress. Plan: Obtain labs and chest x-ray. Will administer albuterol, sodium chloride, and nasal cannula O2. Reassess. 11/04/18 13:30 Dr. Montesinos to follow up results and dispo
[2018-11-04] MEDS ORDERED: SODIUM CHLORIDE 500 ML IV STA (13:05)
[2018-11-04] MEDS ORDERED: ALBUTEROL SO4 2.5/IPRATROPIUM 0.5 INH SOL 3 ML VIAL.NEB. NEB ONE ×2 (13:05→13:49)
--- NOTE | 2018-11-04 13:22 | PDOC ---
History of Present Illness - General Chief Complaint: Shortness of Breath Stated Complaint: DIFFICULTY BREATHING Time Seen by Provider: 11/04/18 12:42 History Source: Other (SEAN Ireland at [facility]) Exam Limitations: Clinical Condition (MR, Nonverbal) - History of Present Illness Initial Comments: 11/04/18 13:07 23 y/o M resident of [facility], with a PMHx of profound intellectual disabilities, Cerebral palsy, Epilepsy, Left Hip Hemarthrosis, Hip contracture, Chronic constipation, Chronic dysphagia, Asthma, GERD, Herpes encephalitis, with multiple recent admissions for pneumonia, presents after experiencing respiratory distress. Patient is only Awake but not A&O, and nonverbal, thus the HPI was provided over the phone by SEAN Ireland at [facility]. Patient woke in his usual state of health and began having respiratory distress- -Described by [facility] Staff as congestion, nonproductive cough and hypoxia measured at 78% on room air. At this point, the staff performed suction of the oropharynx , gave nebulizer treatments and gave supplemental oxygen. The O2 Saturation did not respond appropriately and EMS was alerted. [facility] Staff reports that upon arrival of EMS, patient did have >90% O2 Saturation. [facility] staff denies any recent trauma, travel, sick contacts or recent medication changes. Unable to perform ROS with patient. PCP: Dr. Valentino PMHx: As above PSHx: Denies as per chart review Allergies: NKDA Social: Resident of [facility] FHx: Noncontributory as per chart review Past History - Past Medical History Allergies/Adverse Reactions: Allergies Allergy/AdvReac Type Severity Reaction Status Date / Time No Known Allergies Allergy Verified 11/04/18 12:57 Home Medications: Ambulatory Orders Acyclovir 400 mg GT BID 04/25/17 Baclofen 10 mg GT BID 04/25/17 Clobazam [Onfi -] 10 mg GT HS 04/25/17 Clonazepam 1.5 mg GT TID 04/25/17 Fluticasone Propionate [Flovent Diskus] 50 mcg IH DAILY 04/25/17 Ipratropium/Albuterol Sulfate [Iprat-Albut 0.5-3(2.5) mg/3 ml] 3 ml IH Q6H 04/25 Lactobacillus Acidophilus [Acidophilus] 1 each GT HS 04/25/17 Lamotrigine 200 mg GT BID 04/25/17 Magnesium Hydrox 2400MG/30Ml [Milk of Magnesia -] 20 ml GT BID 04/25/17 Multivitamin [Poly-Vitamin] 1 each GT HS 04/25/17 Phenobarbital 48.6 mg GT BID 04/25/17 Ranitidine [Zantac -] 75 mg GT BID #0 tab 03/29/18 Diazepam Rectal Gel [Diastat Rectal Gel -] 10 mg MD PRN PRN 05/23/18 Fructooligosaccharides/Polydex [Fiber-Stat 15 gm/30 ml Liquid] 15 gm GT HS 05/23 Protein Supplement [Promod] 946 ml PO DAILY 05/23/18 Sodium Phosphate/Na Biphos [Fleet Adult Rectal Enema -] 133 ml RC ONCE PRN 05/23 Anemia: No Asthma: Yes Cancer: No Cardiac Disorders: No CVA: No COPD: No CHF: No Dementia: No Diabetes: No GI Disorders: Yes (DYSPHAGIA. CONSTIPATION. GERD.) Disorders: No HTN: No Hypercholesterolemia: No Liver Disease: No Psychiatric Problems: Yes (MR) Seizures: Yes (EPILEPSY) Thyroid Disease: No - Surgical History Abdominal Surgery: Yes (GT PLACEMENT) Appendectomy: No Cardiac Surgery: No Cholecystectomy: No Lung Surgery: No Neurologic Surgery: No Orthopedic Surgery: Yes (l hip pinning, r hip osteotomy) - Suicide/Smoking/Psychosocial Hx Smoking Status: No Smoking History: Never smoked Have you smoked in the past 12 months: No Number of Cigarettes Smoked Daily: 0 Information on smoking cessation initiated: No Hx Alcohol Use: No Drug/Substance Use Hx: No Substance Use Type: None Hx Substance Use Treatment: No Review of Systems - Review of Systems Able to Perform ROS?: No (Hx of MR, Nonverbal) *Physical Exam - Vital Signs Last Vital Signs Temp Pulse Resp BP Pulse Ox 94.3 F L 68 16 113/77 100 11/04/18 12:35 11/04/18 12:35 11/04/18 12:35 11/04/18 12:35 11/04/18 12:35 - Physical Exam General Appearance: Yes: Nourished, Appropriately Dressed HEENT: positive: WILLIAMS. negative: Pharyngeal Erythema Neck: positive: Supple Respiratory/Chest: positive: Rhonchi (With significant upper airway noise throughout). negative: Accessory Muscle Use, Crackles, Wheezing Cardiovascular: positive: Regular Rhythm, Regular Rate, S1, S2. negative: Edema , JVD Gastrointestinal/Abdominal: positive: Normal Bowel Sounds, Soft, Other (GTube in pace). negative: Distended Musculoskeletal: negative: CVA Tenderness Extremity: negative: Swelling Neurologic: positive: Other (Awake but nonverbal, Extremities contracted, Does not follow commands) ED Treatment Course - LABORATORY CBC & Chemistry Diagram: 11/04/18 13:21 11/04/18 13:21 - RADIOLOGY Radiology Studies Ordered: Category Date Time Status CHEST X-RAY PORTABLE* [RAD] Stat Radiology 11/04/18 13:04 Ordered Medical Decision Making - Medical Decision Making 11/04/18 13:22 23 y/o M resident of [facility], with a PMHx of profound intellectual disabilities, Cerebral palsy, Epilepsy, Left Hip Hemarthrosis, Hip contracture, Chronic constipation, Chronic dysphagia, Asthma, GERD, Herpes encephalitis, with multiple recent admissions for pneumonia, presents after experiencing respiratory distress. Concern for Sepsis given Recent hospitalizations for PNA in the setting of Hypothermia on this visit. VBG, CBC, CMP, Lactic, Trop, UA, Blood and Urine cx, EKG, CXR Give 3 amp Duonebs, 1/2L NS Tele, Seizure precautions, Dysphagia precautions, Fall risk precautions NPO Ongoing assessment. 11/04/18 14:52 Labs not suggestive of Infectious source. CXR with increased markings in the right hemithorax Continues to desat despite Duonebs x3 and oropharynx suction Concern for Aspiration pneumonitis vs pneumonia Started Vanco 1g, Zosyn 4.5, Azithro 500mg daily Microblog sent for Admission 11/04/18 14:[address] Fuentes *DC/Admit/Observation/Transfer Diagnosis at time of Disposition: Aspiration pneumonitis - Discharge Dispostion Decision to Admit order: Yes - Referrals - Patient Instructions - Post Discharge Activity
[2018-11-04 13:49] LABS: BASO % 0.1 % (0-2.0); EOS % 2.2 % (0-4.5); HEMATOCRIT 40.9 % (35.4-49); LYMPH % 26.4 % (8-40); MCH 33.5 pg (25.7-33.7); MCHC 34.2 g/dl (32.0-35.9); MEAN PLT VOLUME 11.5 fl (7.5-11.1); NEUT % 65.3 % (42.8-82.8); PLATELET COUNT 203 K/MM3 (134-434); RBC 4.17 M/mm3 (4.00-5.60); RDW 15.2 % (11.9-15.9); WHITE BLOOD COUNT 8.4 K/mm3 (4.0-10.0)
[2018-11-04 13:54] LABS: VENOUS PC02 48.2 mmHg (41-51); VENOUS PH 7.39 (7.31-7.41)
[2018-11-04 14:01] LABS: INR 1.11 (0.83-1.09); PROTHROMBIN TIME (PATIENT) 13.1 SEC (9.7-13.0)
[2018-11-04 14:04] LABS: ACTIVATED PTT 48.5 SECONDS (25.2-36.5)
[2018-11-04 14:38] LABS: ALBUMIN 3.4 g/dl (3.4-5.0); BILIRUBIN,TOTAL 0.3 mg/dL (0.2-1); BLOOD UREA NITROGEN 11.9 mg/dL (7-18); CALCIUM 9.1 mg/dL (8.5-10.1); CREATININE 0.5 mg/dL (0.55-1.3); TOT PROT 8.5 g/dl (6.4-8.2)
[2018-11-04 14:40] LABS: URINE APPEARANCE CLOUDY; URINE BILIRUBIN NEGATIVE (NEGATIVE); URINE COLOR YELLOW; URINE GLUCOSE (UA) NEGATIVE (NEGATIVE); URINE KETONE NEGATIVE (NEGATIVE); URINE LEUK ESTERASE NEGATIVE (NEGATIVE); URINE NITRITE NEGATIVE (NEGATIVE); URINE PROTEIN NEGATIVE (NEGATIVE); URINE UROBILINOGEN 0.2 mg/dL (0.2-1.0)
[2018-11-04 14:41] LABS: POTASSIUM 5.2 mmol/L (3.5-5.1)
[2018-11-04] MEDS ORDERED: PIPERACILLIN/TAZOB 4.5 GM 4.5 GM in DEXTROSE 5%-WATER 100 ML IVPB ONE (14:46)
[2018-11-04] MEDS ORDERED: VANCOMYCIN 1 GM in D5W (PRE-DOCKED) 1,000 MG/250 ML IVPB ONE (14:46)
[2018-11-04] MEDS ORDERED: PIPERACILLIN/TAZOB 4.5 GM 4.5 GM/100 ML BAG IVPB ONE (14:56)
[2018-11-04] MEDS ORDERED: VANCOMYCIN 1 GRAM (PRE-DOCKED) 1,000 MG/250 ML BAG IVPB ONE (14:56)
[2018-11-04] MEDS ORDERED: AZITHROMYCIN IVPB 500 MG in DEXTROSE 5%-WATER - 250 ML IVPB SCH (15:00)
[2018-11-04] MEDS ORDERED: AZITHROMYCIN IVPB 500 MG/250 ML BAG IVPB ONE (15:47)
--- NOTE | 2018-11-04 16:00 | HP ---
CHIEF COMPLAINT: Respiratory distress PCP: Dr. Valentino HISTORY OF PRESENT ILLNESS: 23 y/o M resident of [facility], with a PMHx of profound intellectual disabilities, Cerebral palsy, Epilepsy, Left Hip Hemarthrosis, Hip contracture, Chronic constipation, Chronic dysphagia, Asthma, GERD, Herpes encephalitis, with multiple recent admissions for pneumonia, presents after experiencing respiratory distress. The patient is nonverbal at baseline and the aide at bedside is not familiar with with events which brought him to the hospital. The following story was collected by the ED staff from an RN at [place]. The patient awoke in his usual state of health this AM, then began to display respiratory distress. The patient had congestion and a nonproductive cough. He was found to be saturating 78% on room air. This hypoxia persisted despite nebulizers and suctioning. At this point, EMS was activated. Of note, the patient has had multiple admissions to [facility] for aspiration PNA. Recent Travel: None PAST MEDICAL HISTORY: see HPI PAST SURGICAL HISTORY: PEG tube insertion Social History: Unable to obtain Family History: unable to obtain Allergies No Known Allergies Allergy (Verified 11/04/18 12:57) HOME MEDICATIONS: Home Medications Medication Instructions Recorded Acyclovir 400 mg GT BID 04/25/17 Baclofen 10 mg GT BID 04/25/17 Clobazam [Onfi -] 10 mg GT HS 04/25/17 Clonazepam 1.5 mg GT TID 04/25/17 Fluticasone Propionate [Flovent 50 mcg IH DAILY 04/25/17 Diskus] Ipratropium/Albuterol Sulfate 3 ml IH Q6H 04/25/17 [Iprat-Albut 0.5-3(2.5) mg/3 ml] Lactobacillus Acidophilus 1 each GT HS 04/25/17 [Acidophilus] Lamotrigine 200 mg GT BID 04/25/17 Magnesium Hydrox 2400MG/30Ml [Milk 20 ml GT BID 04/25/17 of Magnesia -] Multivitamin [Poly-Vitamin] 1 each GT HS 04/25/17 Phenobarbital 48.6 mg GT BID 04/25/17 Ranitidine [Zantac -] 75 mg GT BID #0 tab 03/29/18 Diazepam Rectal Gel [Diastat 10 mg AK PRN PRN 05/23/18 Rectal Gel -] Fructooligosaccharides/Polydex 15 gm GT HS 05/23/18 [Fiber-Stat 15 gm/30 ml Liquid] Protein Supplement [Promod] 946 ml PO DAILY 05/23/18 Sodium Phosphate/Na Biphos [Fleet 133 ml RC ONCE PRN 05/23/18 Adult Rectal Enema -] REVIEW OF SYSTEMS Unable to obtain PHYSICAL EXAMINATION Vital Signs - 24 hr 11/04/18 11/04/18 11/04/18 12:35 14:53 15:13 Temperature 94.3 F L Pulse Rate 68 Pulse Rate [ 93 H Apical] Respiratory 16 26 H Rate Blood Pressure 113/77 Blood Pressure 113/60 [Left Arm] O2 Sat by Pulse 100 85 L 98 Oximetry (%) GENERAL: Awake, alert, in no distress, nonverbal at baseline HEAD: Normal with no signs of trauma. EYES: Pupils equal, round and reactive to light, extraocular movements intact, sclera anicteric, conjunctiva clear. No lid lag. EARS, NOSE, THROAT: Ears normal, nares patent, oropharynx clear. Copious secretions noted. Noisy breathing noted. NECK: Normal range of motion, supple without lymphadenopathy, JVD, or masses. LUNGS: Breath sounds equal, coarse wheezes noted bilaterally down to the bases. HEART: Regular rate and rhythm, normal S1 and S2 without murmur, rub or gallop. ABDOMEN: Soft, nontender, not distended, normoactive bowel sounds, no guarding, no rebound, no masses. No hepatomegaly or splenomegaly. LOWER EXTREMITIES: 2+ pulses, warm, well-perfused. No calf tenderness. No peripheral edema. NEUROLOGICAL: unable to obtain SKIN: Warm, dry, normal turgor, no rashes or lesions noted, normal capillary refill. Laboratory Results - last 24 hr 11/04/18 11/04/18 11/04/18 13:21 13:21 13:21 WBC 8.4 RBC 4.17 Hgb 14.0 Hct 40.9 MCV 98.0 H MCH 33.5 MCHC 34.2 RDW 15.2 Plt Count 203 D MPV 11.5 H D Absolute Neuts (auto) 5.5 Neutrophils % 65.3 D Lymphocytes % 26.4 D Monocytes % 6.0 Eosinophils % 2.2 D Basophils % 0.1 Nucleated RBC % 0 PT with INR 13.10 H INR 1.11 H PTT (Actin FS) 48.5 H VBG pH POC VBG pCO2 POC VBG pO2 VBG HCO3 VBG O2 Sat (Renzo) VBG Base Excess Sodium Potassium Chloride Carbon Dioxide Anion Gap BUN Creatinine Est GFR (CKD-EPI)AfAm Est GFR (CKD-EPI)NonAf Random Glucose Lactic Acid Calcium Total Bilirubin AST ALT Alkaline Phosphatase Troponin I Total Protein Albumin Urine Color Yellow Urine Appearance Cloudy Urine pH 8.0 Ur Specific Strunk 1.008 L Urine Protein Negative Urine Glucose (UA) Negative Urine Ketones Negative Urine Blood Negative Urine Nitrite Negative Urine Bilirubin Negative Urine Urobilinogen 0.2 Ur Leukocyte Esterase Negative 11/04/18 11/04/18 11/04/18 13:21 13:21 13:21 WBC RBC Hgb Hct MCV MCH MCHC RDW Plt Count MPV Absolute Neuts (auto) Neutrophils % Lymphocytes % Monocytes % Eosinophils % Basophils % Nucleated RBC % PT with INR INR PTT (Actin FS) VBG pH 7.39 POC VBG pCO2 48.2 POC VBG pO2 165 H VBG HCO3 28.4 VBG O2 Sat (Renzo) 99.4 H VBG Base Excess 3.0 H Sodium 138 Potassium 5.2 H Chloride 106 Carbon Dioxide 28 Anion Gap 4 L BUN 11.9 Creatinine 0.5 L Est GFR (CKD-EPI)AfAm 178.28 Est GFR (CKD-EPI)NonAf 153.82 Random Glucose 82 Lactic Acid 0.6 Calcium 9.1 Total Bilirubin 0.3 AST 94 H ALT 104 H Alkaline Phosphatase 387 H Troponin I Total Protein 8.5 H Albumin 3.4 Urine Color Urine Appearance Urine pH Ur Specific Strunk Urine Protein Urine Glucose (UA) Urine Ketones Urine Blood Urine Nitrite Urine Bilirubin Urine Urobilinogen Ur Leukocyte Esterase 11/04/18 13:21 WBC RBC Hgb Hct MCV MCH MCHC RDW Plt Count MPV Absolute Neuts (auto) Neutrophils % Lymphocytes % Monocytes % Eosinophils % Basophils % Nucleated RBC % PT with INR INR PTT (Actin FS) VBG pH POC VBG pCO2 POC VBG pO2 VBG HCO3 VBG O2 Sat (Renzo) VBG Base Excess Sodium Potassium Chloride Carbon Dioxide Anion Gap BUN Creatinine Est GFR (CKD-EPI)AfAm Est GFR (CKD-EPI)NonAf Random Glucose Lactic Acid Calcium Total Bilirubin AST ALT Alkaline Phosphatase Troponin I < 0.02 Total Protein Albumin Urine Color Urine Appearance Urine pH Ur Specific Strunk Urine Protein Urine Glucose (UA) Urine Ketones Urine Blood Urine Nitrite Urine Bilirubin Urine Urobilinogen Ur Leukocyte Esterase ASSESSMENT/PLAN: 23 y/o M resident of [facility], with a PMHx of profound intellectual disabilities, Cerebral palsy, Epilepsy, Left Hip Hemarthrosis, Hip contracture, Chronic constipation, Chronic dysphagia, Asthma, GERD, Herpes encephalitis, with multiple recent admissions for pneumonia, presents after experiencing respiratory distress. #acute hypoxic respiratory distress likely 2/2 aspiration PNA -CXR showing increased markings in the right hemithorax -h/o recurrent aspiration PNA -s/p azithromycin, vancomycin and zosyn in ED -will continue with Zosyn 3.375 q8h monotherapy -ID consult for further mgmt -admit tele for continuous SPO2 monitoring #Epilepsy -resume home medications #Chronic constipation -resume home bowel regimen #asthma -resume home nebulizers/inhalers #FEN -no fluids indicated -hyperkalemia w/o EKG changes; monitor -NPO for now 2/2 aspiration PNA #Prophy -Lovenox 40m SQ daily -Ranitidine 150mg daily #Dispo -admit tele for continuous SPO2 monitoring. Visit type - Emergency Visit Emergency Visit: Yes ED Registration Date: 11/04/18 Care time: The patient presented to the Emergency Department on the above date and was hospitalized for further evaluation of their emergent condition. - New Patient This patient is new to me today: Yes Date on this admission: 11/04/18 - Critical Care Critical Care patient: No
--- NOTE | 2018-11-04 17:25 | PN ---
Teaching Attending Note Name of Resident: Justin Fuentes ATTENDING PHYSICIAN STATEMENT I saw and evaluated the patient. I reviewed the resident's note and discussed the case with the resident. I agree with the resident's findings and plan as documented. SUBJECTIVE: This is a 23 year old male resident of [facility] with a history of profound mental retardation, cerebral palsy, epilepsy, asthma , chronic hypoxic respiratory failure, hypothermia, Herpes encephalitis, left hip hemarthrosis, dysphagia, PEG, chronic constipation, GERD who was sent to the ED for evaluation of respiratory distress. The patient was reported to have developed respiratory distress, chest congestion, and a non-producive cough with O2 saturation 78% this morning. He was suctioned and given nebulizers without any improvement. OBJECTIVE: Vital Signs Period Temp Pulse Resp BP Sys/Linares Pulse Ox Last 24 Hr 94.3 F 68-93 16-30 113-119/60-85 85-100 HEART: S1S2, RRR LUNGS: Bilateral wheezes ABDOMEN: Soft, non-distended, normal BS, G-tube in place EXTREMITIES: No edema Laboratory Tests 11/04/18 11/04/18 11/04/18 13:21 13:21 13:21 WBC 8.4 RBC 4.17 Hgb 14.0 Hct 40.9 MCV 98.0 H MCH 33.5 MCHC 34.2 RDW 15.2 Plt Count 203 D MPV 11.5 H D Absolute Neuts (auto) 5.5 Neutrophils % 65.3 D Lymphocytes % 26.4 D Monocytes % 6.0 Eosinophils % 2.2 D Basophils % 0.1 Nucleated RBC % 0 PT with INR 13.10 H INR 1.11 H PTT (Actin FS) 48.5 H VBG pH POC VBG pCO2 POC VBG pO2 VBG HCO3 VBG O2 Sat (Renzo) VBG Base Excess Sodium Potassium Chloride Carbon Dioxide Anion Gap BUN Creatinine Est GFR (CKD-EPI)AfAm Est GFR (CKD-EPI)NonAf Random Glucose Lactic Acid Calcium Total Bilirubin AST ALT Alkaline Phosphatase Troponin I Total Protein Albumin Urine Color Yellow Urine Appearance Cloudy Urine pH 8.0 Ur Specific Lillie 1.008 L Urine Protein Negative Urine Glucose (UA) Negative Urine Ketones Negative Urine Blood Negative Urine Nitrite Negative Urine Bilirubin Negative Urine Urobilinogen 0.2 Ur Leukocyte Esterase Negative 11/04/18 11/04/18 11/04/18 13:21 13:21 13:21 WBC RBC Hgb Hct MCV MCH MCHC RDW Plt Count MPV Absolute Neuts (auto) Neutrophils % Lymphocytes % Monocytes % Eosinophils % Basophils % Nucleated RBC % PT with INR INR PTT (Actin FS) VBG pH 7.39 POC VBG pCO2 48.2 POC VBG pO2 165 H VBG HCO3 28.4 VBG O2 Sat (Renzo) 99.4 H VBG Base Excess 3.0 H Sodium 138 Potassium 5.2 H Chloride 106 Carbon Dioxide 28 Anion Gap 4 L BUN 11.9 Creatinine 0.5 L Est GFR (CKD-EPI)AfAm 178.28 Est GFR (CKD-EPI)NonAf 153.82 Random Glucose 82 Lactic Acid 0.6 Calcium 9.1 Total Bilirubin 0.3 AST 94 H ALT 104 H Alkaline Phosphatase 387 H Troponin I Total Protein 8.5 H Albumin 3.4 Urine Color Urine Appearance Urine pH Ur Specific Lillie Urine Protein Urine Glucose (UA) Urine Ketones Urine Blood Urine Nitrite Urine Bilirubin Urine Urobilinogen Ur Leukocyte Esterase 11/04/18 13:21 WBC RBC Hgb Hct MCV MCH MCHC RDW Plt Count MPV Absolute Neuts (auto) Neutrophils % Lymphocytes % Monocytes % Eosinophils % Basophils % Nucleated RBC % PT with INR INR PTT (Actin FS) VBG pH POC VBG pCO2 POC VBG pO2 VBG HCO3 VBG O2 Sat (Renzo) VBG Base Excess Sodium Potassium Chloride Carbon Dioxide Anion Gap BUN Creatinine Est GFR (CKD-EPI)AfAm Est GFR (CKD-EPI)NonAf Random Glucose Lactic Acid Calcium Total Bilirubin AST ALT Alkaline Phosphatase Troponin I < 0.02 Total Protein Albumin Urine Color Urine Appearance Urine pH Ur Specific Lillie Urine Protein Urine Glucose (UA) Urine Ketones Urine Blood Urine Nitrite Urine Bilirubin Urine Urobilinogen Ur Leukocyte Esterase Home Medications Medication Instructions Recorded Acyclovir 400 mg GT BID 04/25/17 Baclofen 10 mg GT BID 04/25/17 Clobazam [Onfi -] 10 mg GT HS 04/25/17 Clonazepam 1.5 mg GT TID 04/25/17 Fluticasone Propionate [Flovent 50 mcg IH DAILY 04/25/17 Diskus] Ipratropium/Albuterol Sulfate 3 ml IH Q6H 04/25/17 [Iprat-Albut 0.5-3(2.5) mg/3 ml] Lactobacillus Acidophilus 1 each GT HS 04/25/17 [Acidophilus] Lamotrigine 200 mg GT BID 04/25/17 Magnesium Hydrox 2400MG/30Ml [Milk 20 ml GT BID 04/25/17 of Magnesia -] Multivitamin [Poly-Vitamin] 1 each GT HS 04/25/17 Phenobarbital 48.6 mg GT BID 04/25/17 Ranitidine [Zantac -] 75 mg GT BID #0 tab 03/29/18 Diazepam Rectal Gel [Diastat 10 mg AR PRN PRN 05/23/18 Rectal Gel -] Fructooligosaccharides/Polydex 15 gm GT HS 05/23/18 [Fiber-Stat 15 gm/30 ml Liquid] Protein Supplement [Promod] 946 ml PO DAILY 05/23/18 Sodium Phosphate/Na Biphos [Fleet 133 ml RC ONCE PRN 05/23/18 Adult Rectal Enema -] ASSESSMENT AND PLAN: This is a 23 year old man with a history of profound mental retardation, cerebral palsy, epilepsy, asthma, chronic hypoxic respiratory failure, hypothermia, Herpes encephalitis, left hip hemarthrosis, dysphagia, PEG, chronic constipation, GERD who presented to the ED from [facility] with respiratory distress, chest congestion, non-producive cough, and hypoxia. 1. Acute on chronic hypoxic respiratory failure secondary to aspiration and asthma - Oxygen to maintain saturation >90% - Continue Flovent, DuoNeb 2. Probable aspiration pneumonia - Given Zosyn, Zithromax, Vancomycin in ED - Continue Zosyn - Hold PEG feeds - ID, pulmonary consults 3. Profound mental retardation 4. Cerebral palsy 5. Epilepsy - Continue Phenobarbital, Onfi, Lamictal, Klonopin 6. History of Herpes encephalitis 7. GERD - Continue Zantac 8. Dysphagia - Has PEG - Hold feeds for now secondary to aspiration 9. Chronic constipation - Continue milk of magnesia, Fleet enema as needed
[2018-11-04] MEDS: PIPERACILLIN/TAZOB 3.375 GM 3.375 GM in DEXTROSE 5%-WATER - 50 ML IVPB SCH (17:40)
[2018-11-04] MEDS: ALBUTEROL SO4 2.5/IPRATROPIUM 0.5 INH SOL 3 ML VIAL.NEB. NEB SCH ×3 (17:40→23:41)
[2018-11-04] MEDS ORDERED: ACETAMINOPHEN 650 MG/20.3 ML ORAL SOLUTION (CUPS) PO ONE (17:42)
[2018-11-04] MEDS ORDERED: ACETAMINOPHEN 650 MG SUPP.RECT PR ONE (18:30)
[2018-11-04] MEDS ORDERED: ACETAMINOPHEN 650 MG SUPP.RECT ONE (18:33)
[2018-11-04] MEDS ORDERED: PHENOBARBITAL GT SCH (22:00)
[2018-11-04] MEDS ORDERED: ACYCLOVIR 400 MG GT SCH (22:00)
[2018-11-04] MEDS ORDERED: MAGNESIUM HYDROX 2400 MG/30 ML GT SCH (22:00)
[2018-11-04] MEDS ORDERED: PATIENT'S OWN MEDICATION (NON-FORMULARY) (Lactobacillus Acidophilus [Acidophilus] 1 EACH) GT SCH (22:00)
[2018-11-04] MEDS: MOMETASONE FUROATE 220 MCG/IH INHALER IH SCH (22:10)
[2018-11-04] MEDS: MAGNESIUM HYDROX 2400MG/30ML ORAL SUSPENSION 30 ML CUP GT SCH (23:12)
[2018-11-04] MEDS: RANITIDINE HCL 150 MG TABLET (FP) PO SCH (23:13)
[2018-11-04] MEDS: LACTOBACILLUS ACIDOPHILUS 1 TABLET PO SCH (23:14)
[2018-11-04] MEDS: BACLOFEN 10 MG TABLET (FP) GT SCH (23:14)
[2018-11-04] MEDS: PHENobarbital 20 MG/5 ML UNIT-DOSE CUP PO SCH (23:15)
[2018-11-04] MEDS: ACYCLOVIR 400 MG TABLET GT SCH (23:21)
[2018-11-05 00:08] VITALS: BMI 16.7
[2018-11-05] MEDS ORDERED: DEXTROSE 5%-WATER - 50 ML IVPB ONE ×3 (00:09→17:11)
[2018-11-05] MEDS ORDERED: PIPERACILLIN/TAZOBACTAM 3.375 GM VIAL IVPB ONE ×3 (00:09→17:11)
[2018-11-05] MEDS: PIPERACILLIN/TAZOB 3.375 GM 3.375 GM in DEXTROSE 5%-WATER - 50 ML IVPB SCH ×5 (00:46→17:16)
[2018-11-05] MEDS: ALBUTEROL SO4 2.5/IPRATROPIUM 0.5 INH SOL 3 ML VIAL.NEB. NEB SCH ×4 (07:00→20:33)
[2018-11-05 07:02] LABS: BASO % 0.2 % (0-2.0); EOS % 0.8 % (0-4.5); HEMOGLOBIN 13.5 GM/dL (11.7-16.9); LYMPH % 4.4 % (8-40); MCH 33.4 pg (25.7-33.7); MCHC 34.5 g/dl (32.0-35.9); MEAN CELL VOLUME 96.8 fl (80-96); MEAN PLT VOLUME 10.3 fl (7.5-11.1); MONO % 4.5 % (3.8-10.2); NEUT % 90.1 % (42.8-82.8); RBC 4.03 M/mm3 (4.00-5.60); RDW 14.9 % (11.9-15.9); WHITE BLOOD COUNT 11.7 K/mm3 (4.0-10.0)
--- NOTE | 2018-11-05 07:31 | PN ---
Physical Exam: SUBJECTIVE: Patient seen and examined at bedside. no acute events overnight. resting/breathing comfortable on VM 40% OBJECTIVE: Vital Signs Period Temp Pulse Resp BP Sys/Linares Pulse Ox Last 24 Hr 94.3 F-99.2 F 66-93 16-30 84-125/40-91 85-100 GENERAL: Awake, alert, in no distress, nonverbal at baseline, contracted extremities HEAD: Normal with no signs of trauma. EYES: Pupils equal, round and reactive to light, extraocular movements intact, sclera anicteric, conjunctiva clear. No lid lag. EARS, NOSE, THROAT: Ears normal, nares patent, oropharynx clear. Copious secretions noted. Noisy breathing noted. NECK: Normal range of motion, supple without lymphadenopathy, JVD, or masses. LUNGS: coarse Breath sounds equal, noted bilaterally down to the bases. HEART: Regular rate and rhythm, normal S1 and S2 without murmur, rub or gallop. ABDOMEN: Soft, nontender, not distended, normoactive bowel sounds, no guarding, no rebound, no masses. No hepatomegaly or splenomegaly. LOWER EXTREMITIES: 2+ pulses, warm, well-perfused. No calf tenderness. No peripheral edema. NEUROLOGICAL: unable to obtain SKIN: Warm, dry, normal turgor, no rashes or lesions noted, normal capillary refill. Laboratory Results - last 24 hr 11/04/18 11/04/18 11/04/18 13:21 13:21 13:21 WBC 8.4 RBC 4.17 Hgb 14.0 Hct 40.9 MCV 98.0 H MCH 33.5 MCHC 34.2 RDW 15.2 Plt Count 203 D MPV 11.5 H D Absolute Neuts (auto) 5.5 Neutrophils % 65.3 D Lymphocytes % 26.4 D Monocytes % 6.0 Eosinophils % 2.2 D Basophils % 0.1 Nucleated RBC % 0 PT with INR 13.10 H INR 1.11 H PTT (Actin FS) 48.5 H VBG pH POC VBG pCO2 POC VBG pO2 VBG HCO3 VBG O2 Sat (Renzo) VBG Base Excess Sodium Potassium Chloride Carbon Dioxide Anion Gap BUN Creatinine Est GFR (CKD-EPI)AfAm Est GFR (CKD-EPI)NonAf Random Glucose Lactic Acid Calcium Total Bilirubin AST ALT Alkaline Phosphatase Troponin I Total Protein Albumin Urine Color Yellow Urine Appearance Cloudy Urine pH 8.0 Ur Specific Myrtle 1.008 L Urine Protein Negative Urine Glucose (UA) Negative Urine Ketones Negative Urine Blood Negative Urine Nitrite Negative Urine Bilirubin Negative Urine Urobilinogen 0.2 Ur Leukocyte Esterase Negative 11/04/18 11/04/18 11/04/18 13:21 13:21 13:21 WBC RBC Hgb Hct MCV MCH MCHC RDW Plt Count MPV Absolute Neuts (auto) Neutrophils % Lymphocytes % Monocytes % Eosinophils % Basophils % Nucleated RBC % PT with INR INR PTT (Actin FS) VBG pH 7.39 POC VBG pCO2 48.2 POC VBG pO2 165 H VBG HCO3 28.4 VBG O2 Sat (Renzo) 99.4 H VBG Base Excess 3.0 H Sodium 138 Potassium 5.2 H Chloride 106 Carbon Dioxide 28 Anion Gap 4 L BUN 11.9 Creatinine 0.5 L Est GFR (CKD-EPI)AfAm 178.28 Est GFR (CKD-EPI)NonAf 153.82 Random Glucose 82 Lactic Acid 0.6 Calcium 9.1 Total Bilirubin 0.3 AST 94 H ALT 104 H Alkaline Phosphatase 387 H Troponin I Total Protein 8.5 H Albumin 3.4 Urine Color Urine Appearance Urine pH Ur Specific Myrtle Urine Protein Urine Glucose (UA) Urine Ketones Urine Blood Urine Nitrite Urine Bilirubin Urine Urobilinogen Ur Leukocyte Esterase 11/04/18 11/04/18 13:21 20:30 WBC RBC Hgb Hct MCV MCH MCHC RDW Plt Count MPV Absolute Neuts (auto) Neutrophils % Lymphocytes % Monocytes % Eosinophils % Basophils % Nucleated RBC % PT with INR INR PTT (Actin FS) VBG pH POC VBG pCO2 POC VBG pO2 VBG HCO3 VBG O2 Sat (Renzo) VBG Base Excess Sodium Potassium Chloride Carbon Dioxide Anion Gap BUN Creatinine Est GFR (CKD-EPI)AfAm Est GFR (CKD-EPI)NonAf Random Glucose Lactic Acid 1.4 Calcium Total Bilirubin AST ALT Alkaline Phosphatase Troponin I < 0.02 Total Protein Albumin Urine Color Urine Appearance Urine pH Ur Specific Myrtle Urine Protein Urine Glucose (UA) Urine Ketones Urine Blood Urine Nitrite Urine Bilirubin Urine Urobilinogen Ur Leukocyte Esterase Active Medications Generic Name Dose Route Start Last Admin Trade Name Freq PRN Reason Stop Dose Admin Acyclovir 400 mg 11/04/18 22:00 11/04/18 23:21 Zovirax - GT 400 mg BID JORGE Administration Albuterol/Ipratropium 1 amp 11/04/18 23:00 11/05/18 07:00 Duoneb - NEB 1 amp RQID JORGE Administration Baclofen 10 mg 11/04/18 22:00 11/04/18 23:14 Lioresal - GT 10 mg BID JORGE Administration Enoxaparin Sodium 40 mg 11/05/18 10:00 Lovenox - SQ DAILY JORGE Azithromycin 500 mg/ Dextrose 250 mls @ 250 mls/hr 11/04/18 15:00 11/04/18 17 :40 IVPB 250 mls/hr DAILY JORGE Administration Piperacillin Sod/Tazobactam 50 mls @ 100 mls/hr 11/04/18 23:30 Sod 3.375 gm/ Dextrose IVPB Q8H-IV JORGE Protocol Piperacillin Sod/Tazobactam 50 mls @ 100 mls/hr 11/04/18 16:15 11/05/18 00:46 Sod 3.375 gm/ Dextrose IVPB 11/05/18 08:44 100 mls/hr Q8H JORGE Administration Lactobacillus Acidophilus 1 tab 11/04/18 22:00 11/04/18 23:14 Bacid - PO 1 tab HS JORGE Administration Lamotrigine 200 mg 11/04/18 22:00 11/04/18 23:20 Lamictal - PO 200 mg BID JORGE Administration Magnesium Hydroxide 20 ml 11/04/18 22:00 11/04/18 23:12 Milk Of Magnesia - GT 20 ml BID JORGE Administration Mometasone Furoate 1 puff 11/04/18 22:00 11/04/18 22:10 Asmanex 220mcg - IH Not Given HS JORGE Phenobarbital 48 mg 11/04/18 22:00 11/04/18 23:15 Phenobarbital Liquid - PO 48 mg BID JORGE Administration Ranitidine HCl 75 mg 11/04/18 22:00 11/04/18 23:13 Zantac - PO 75 mg BID JORGE Administration ASSESSMENT/PLAN: 23 y/o M resident of [facility], with a PMHx of profound intellectual disabilities, Cerebral palsy, Epilepsy, Left Hip Hemarthrosis, Hip contracture, Chronic constipation, Chronic dysphagia, Asthma, GERD, Herpes encephalitis, with multiple recent admissions for pneumonia, presents after experiencing respiratory distress. #acute hypoxic respiratory distress likely 2/2 aspiration PNA -CXR showing increased markings in the right hemithorax -h/o recurrent aspiration PNA -s/p azithromycin, vancomycin and zosyn in ED -will continue with Zosyn 3.375 q8h monotherapy d2 -ID consulted, Stella, for further mgmt -tele for continuous SPO2 monitoring #Epilepsy -resume home medications #Chronic constipation -resume home bowel regimen #asthma -resume home nebulizers/inhalers #FEN -no fluids indicated -hyperkalemia w/o EKG changes; monitor -NPO for now 2/2 aspiration PNA, possibly resume tube feeds kiera #Prophy -Lovenox 40m SQ daily -Ranitidine 150mg daily #Dispo -tele for continuous SPO2 monitoring. Visit type - Emergency Visit Emergency Visit: Yes ED Registration Date: 11/04/18 Care time: The patient presented to the Emergency Department on the above date and was hospitalized for further evaluation of their emergent condition. - New Patient This patient is new to me today: Yes Date on this admission: 11/05/18 - Critical Care Critical Care patient: No
[2018-11-05 07:37] LABS: INR 1.16 (0.83-1.09); PROTHROMBIN TIME (PATIENT) 13.7 SEC (9.7-13.0)
[2018-11-05 07:40] LABS: ACTIVATED PTT 43.8 SECONDS (25.2-36.5)
[2018-11-05 07:49] LABS: ALBUMIN 3.2 g/dl (3.4-5.0); BILIRUBIN,TOTAL 0.4 mg/dL (0.2-1); CALCIUM 9.1 mg/dL (8.5-10.1); CREATININE 0.6 mg/dL (0.55-1.3); MAGNESIUM 2.1 mg/dL (1.8-2.4); PHOSPHOROUS 4.2 mg/dL (2.5-4.9); POTASSIUM 4.3 mmol/L (3.5-5.1); TOT PROT 7.7 g/dl (6.4-8.2)
[2018-11-05 07:55] LABS: PLATELET COUNT 154 K/MM3 (134-434)
--- NOTE | 2018-11-05 09:51 | CON.ID ---
Consult Consult Specialty:: infectioius diseases Referred by:: hospitalist Reason for Consultation:: pneumonia - History of Present Illness Chief Complaint: sob,hypoxia History of Present Illness: 23 y/o M resident of [facility], with a PMHx of profound intellectual disabilities, Cerebral palsy, Epilepsy, Left Hip Hemarthrosis, Hip contracture, Chronic constipation, Chronic dysphagia, Asthma, GERD, Herpes encephalitis, with multiple recent admissions for pneumonia, presents after experiencing respiratory distress. The patient is nonverbal at baseline and the aide at bedside is not familiar with with events which brought him to the hospital. The following story was collected by the ED staff from an RN at [facility]. The patient awoke in his usual state of health this AM, then began to display respiratory distress. The patient had congestion and a nonproductive cough. He was found to be saturating 78% on room air. This hypoxia persisted despite nebulizers and suctioning. At this point, EMS was activated. - History Source History Provided By: Medical Record Limitations to Obtaining History: Clinical Condition - Past Medical History [employer]: Yes: Other (Mental retardation, cerebral palsy) Pulmonary: Yes: Asthma Gastrointestinal: Yes: Other (gastrostomy) Infectious Disease: Yes: Herpes Zoster Musculoskeletal: Yes: Other (Functional Qaudraplegic) - Alcohol/Substance Use Hx Alcohol Use: No - Smoking History Smoking history: Never smoked Have you smoked in the past 12 months: No Aproximately how many cigarettes per day: 0 - Social History Usual Living Arrangement: Correction ADL: Support Services History of Recent Travel: No Home Medications - Allergies Allergies/Adverse Reactions: Allergies Allergy/AdvReac Type Severity Reaction Status Date / Time No Known Allergies Allergy Verified 11/04/18 12:57 - Home Medications Home Medications: Ambulatory Orders Acyclovir 400 mg GT BID 04/25/17 Baclofen 10 mg GT BID 04/25/17 Clobazam [Onfi -] 10 mg GT HS 04/25/17 Clonazepam 1.5 mg GT TID 04/25/17 Fluticasone Propionate [Flovent Diskus] 50 mcg IH DAILY 04/25/17 Ipratropium/Albuterol Sulfate [Iprat-Albut 0.5-3(2.5) mg/3 ml] 3 ml IH Q6H 04/25 Lactobacillus Acidophilus [Acidophilus] 1 each GT HS 12/16/17 Lamotrigine 200 mg GT BID 04/25/17 Magnesium Hydrox 2400MG/30Ml [Milk of Magnesia -] 20 ml GT BID 04/25/17 Multivitamin [Poly-Vitamin] 1 each GT HS 04/25/17 Phenobarbital 48.6 mg GT BID 04/25/17 Ranitidine [Zantac -] 75 mg GT BID #0 tab 03/29/18 Diazepam Rectal Gel [Diastat Rectal Gel -] 10 mg NC PRN PRN 05/23/18 Fructooligosaccharides/Polydex [Fiber-Stat 15 gm/30 ml Liquid] 15 gm GT HS 05/23 Protein Supplement [Promod] 946 ml PO DAILY 05/23/18 Sodium Phosphate/Na Biphos [Fleet Adult Rectal Enema -] 133 ml RC ONCE PRN 05/23 Clobazam [Onfi] 5 mg PO AM 11/06/18 Acyclovir [Zovirax -] 400 mg GT BID #60 tablet 11/12/18 Amox-Tr/K Cl [Augmentin Suspension -] 500 mg PO TIDCM #120 ml 11/12/18 Clobazam [Onfi -] 5 mg GT DAILY tablet MDD 1 11/12/18 Clobazam [Onfi -] 5 mg GT DAILY tablet MDD 1 11/12/18 Enoxaparin [Lovenox -] 40 mg SQ DAILY disp.syrin 11/12/18 Lactobacillus Acidophilus [Bacid -] 1 tab PO HS tab 11/12/18 Magnesium Hydrox 2400MG/30Ml [Milk of Magnesia -] 20 ml GT BID cup 11/12/18 Mometasone Furoate [Asmanex 220Mcg -] 1 puff IH HS inhaler 11/12/18 Review of Systems Unable to obtain ROS, reason: unable to obtain Physical Exam Vital Signs: Vital Signs Temperature 99.2 F 11/05/18 06:00 Pulse Rate 77 11/05/18 06:00 Respiratory Rate 11/05/18 06:00 Blood Pressure 112/50 L 11/05/18 06:00 O2 Sat by Pulse Oximetry (%) 99 11/04/18 21:30 Constitutional: Yes: Mild Distress Eyes: Yes: Conjunctiva Clear Cardiovascular: Yes: S1, S2 Respiratory: Yes: Poor Air Entry, Other (on face mask) Gastrointestinal: Yes: Normal Bowel Sounds, Soft Musculoskeletal: Yes: WNL Extremities: Yes: Other (contracted) Neurological: Yes: Alert, Other Labs: CBC, BMP 11/05/18 06:10 11/05/18 06:10 Imaging - Results Chest X-ray: Report Reviewed, Image Reviewed Cat Scan: Report Reviewed, Image Reviewed Assessment/Plan 3 year old man with a history of profound mental retardation, CP, epilepsy, chronic hypoxic respiratory failure, asthma, Herpes encephalitis, left hip hemarthrosis, dysphagia s/p PEG, chronic constipation, GERD who presented to the ED from [facility] with respiratory distress, chest congestion, non-productive cough, and hypoxia. Sepsis/Acute on chronic hypoxic respiratory failure secondary to aspiration pna and asthma Transaminitis Profound mental retardation Cerebral palsy Epilepsy Hx Herpes encephalitis GERD Dysphagia s/p PEG Chronic constipation plan abx npo nutrition await for all cx report rest as per the team
[2018-11-05] MEDS ORDERED: PATIENT'S OWN MEDICATION (NON-FORMULARY) (Fluticasone Propionate [Flovent Diskus] 50 MCG) IH SCH (10:00)
[2018-11-05] MEDS ORDERED: AZITHROMYCIN IVPB 500 MG/250 ML BAG IVPB SCH (10:00)
[2018-11-05] MEDS: ENOXAPARIN NA (PORCINE) 40 MG/0.4 ML DISP.SYRIN SQ SCH (10:21)
[2018-11-05] MEDS: BACLOFEN 10 MG TABLET (FP) GT SCH ×2 (10:21→22:03)
[2018-11-05] MEDS: MAGNESIUM HYDROX 2400MG/30ML ORAL SUSPENSION 30 ML CUP GT SCH ×2 (10:22→22:05)
[2018-11-05] MEDS: RANITIDINE HCL 150 MG TABLET (FP) PO SCH ×2 (10:23→22:03)
[2018-11-05] MEDS: ACYCLOVIR 400 MG TABLET GT SCH ×2 (10:23→22:05)
[2018-11-05] MEDS: PHENobarbital 20 MG/5 ML UNIT-DOSE CUP PO SCH ×2 (10:24→22:04)
--- NOTE | 2018-11-05 11:31 | PN ---
Progress Note (short form) - Note Progress Note: PULMONARY CONSULATION DICTATED 11/05/18 IMP ACUTE HYPOXEMIC RESPIRATORY FAILURE PNEUMONIA OPACIFICATION LEFT HEMITHORAX SEVERE MENTAL RETARDATION CEREBRAL PALSY FUNCTIONAL QUADRAPLEGIA SEIZURES ELEVATED LFTS PLAN ABX INHALED BRONCHODILATORS O2 TO MAINTAIN O2 SAT >90% NIPPV NEEDED ORAL/PHARYNGEAL SUCTIONING ASPIRATION PRECAUTIONS CHEST CT MONITOR LFTS DR VILLALTA Problem List - Problems (1) Acute hypoxemic respiratory failure Code(s): J96.01 - ACUTE RESPIRATORY FAILURE WITH HYPOXIA (2) Aspiration pneumonitis Code(s): J69.0 - PNEUMONITIS DUE TO INHALATION OF FOOD AND VOMIT (3) Fever Code(s): R50.9 - FEVER, UNSPECIFIED (4) Pneumonia Code(s): J18.9 - PNEUMONIA, UNSPECIFIED ORGANISM (5) Respiratory distress Code(s): R06.03 - ACUTE RESPIRATORY DISTRESS (6) Asthma Code(s): J45.909 - UNSPECIFIED ASTHMA, UNCOMPLICATED (7) Epilepsy Code(s): G40.909 - EPILEPSY, UNSP, NOT INTRACTABLE, WITHOUT STATUS EPILEPTICUS (8) PEG (percutaneous endoscopic gastrostomy) status Code(s): Z93.1 - GASTROSTOMY STATUS (9) Profound mental retardation Code(s): F73 - PROFOUND INTELLECTUAL DISABILITIES (10) Respiratory failure Code(s): J96.90 - RESPIRATORY FAILURE, UNSP, UNSP W HYPOXIA OR HYPERCAPNIA Qualifiers: Chronicity: acute Respiratory failure complication: hypoxia Qualified Code(s): J96.01 - Acute respiratory failure with hypoxia
--- NOTE | 2018-11-05 11:58 | EKG ---
Test Reason : Blood Pressure : / mmHG Vent. Rate : 057 BPM Atrial Rate : 057 BPM P-R Int : 176 ms QRS Dur : 118 ms QT Int : 430 ms P-R-T Axes : 021 063 049 degrees QTc Int : 418 ms SINUS BRADYCARDIA INFERIOR INFARCT (CITED ON OR BEFORE 26-JUN-2016) INCOMPLETE RBBB WHEN COMPARED WITH ECG OF 10-SEP-2018 19:54, VENT. RATE HAS DECREASED BY 33 BPM Confirmed by JOSH BAUTISTA MD ([id number]) on 11/05/2018 11:58:11 AM Referred By: Confirmed By:JOSH BAUTISTA MD
--- NOTE | 2018-11-05 14:22 | PN ---
Teaching Attending Note Name of Resident: Jamie Block ATTENDING PHYSICIAN STATEMENT I saw and evaluated the patient. I reviewed the resident's note and discussed the case with the resident. I agree with the resident's findings and plan as documented. SUBJECTIVE: Seen and examined at bedside. No acute events overnight, patient coughing this morning, now sleeping OBJECTIVE: Vital Signs - 24 hr 11/04/18 11/04/18 11/04/18 14:53 15:13 16:28 Temperature Pulse Rate Pulse Rate [ 93 H 74 Apical] Respiratory 26 H 30 H Rate Blood Pressure Blood Pressure 113/60 119/85 [Left Arm] O2 Sat by Pulse 85 L 98 100 Oximetry (%) 11/04/18 11/04/18 11/04/18 17:37 19:15 20:00 Temperature 97.6 F Pulse Rate Pulse Rate [ 66 83 Apical] Respiratory 22 H 22 H Rate Blood Pressure Blood Pressure 125/91 115/76 [Left Arm] O2 Sat by Pulse 100 100 98 Oximetry (%) 11/04/18 11/05/18 11/05/18 21:30 02:00 06:00 Temperature 97.6 F 97.8 F 99.2 F Pulse Rate 80 78 77 Pulse Rate [ Apical] Respiratory 21 H 20 19 Rate Blood Pressure 103/40 L 84/78 L 112/50 L Blood Pressure [Left Arm] O2 Sat by Pulse 99 Oximetry (%) 11/05/18 11/05/18 08:00 09:00 Temperature 99.7 F H Pulse Rate 120 H Pulse Rate [ Apical] Respiratory 20 20 Rate Blood Pressure 123/69 Blood Pressure [Left Arm] O2 Sat by Pulse 99 Oximetry (%) GENERAL: sleeping, NAD HEART: S1S2, RRR LUNGS: Bilateral wheezes/rhonchi at bases ABDOMEN: Soft, ND,NT, normal BS, G-tube in place EXTREMITIES: No edema, contracted Current Medications Generic Name Dose Route Start Last Admin Trade Name Freq PRN Reason Stop Dose Admin Acyclovir 400 mg 11/04/18 22:00 11/05/18 10:23 Zovirax - GT 400 mg BID JORGE Administration Albuterol/Ipratropium 1 amp 11/04/18 23:00 11/05/18 11:15 Duoneb - NEB 1 amp RQID JORGE Administration Baclofen 10 mg 11/04/18 22:00 11/05/18 10:21 Lioresal - GT 10 mg BID JORGE Administration Enoxaparin Sodium 40 mg 11/05/18 10:00 11/05/18 10:21 Lovenox - SQ 40 mg DAILY JORGE Administration Piperacillin Sod/Tazobactam 50 mls @ 100 mls/hr 11/05/18 10:00 11/05/18 13:13 Sod 3.375 gm/ Dextrose IVPB Not Given Q8H-IV JORGE Protocol Lactobacillus Acidophilus 1 tab 11/04/18 22:00 11/04/18 23:14 Bacid - PO 1 tab HS JORGE Administration Lamotrigine 200 mg 11/04/18 22:00 11/05/18 10:22 Lamictal - PO 200 mg BID JORGE Administration Magnesium Hydroxide 20 ml 11/04/18 22:00 11/05/18 10:22 Milk Of Magnesia - GT 20 ml BID JORGE Administration Mometasone Furoate 1 puff 11/04/18 22:00 11/04/18 22:10 Asmanex 220mcg - IH Not Given HS JORGE Phenobarbital 48 mg 11/04/18 22:00 11/05/18 10:24 Phenobarbital Liquid - PO 48 mg BID JORGE Administration Ranitidine HCl 75 mg 11/04/18 22:00 11/05/18 10:23 Zantac - PO 75 mg BID JORGE Administration Laboratory Results - last 24 hr 11/04/18 11/04/18 11/04/18 13:21 13:21 13:21 WBC RBC Hgb Hct MCV MCH MCHC RDW Plt Count MPV Absolute Neuts (auto) Neutrophils % Lymphocytes % Monocytes % Eosinophils % Basophils % Nucleated RBC % PT with INR INR PTT (Actin FS) Sodium 138 Potassium 5.2 H Chloride 106 Carbon Dioxide 28 Anion Gap 4 L BUN 11.9 Creatinine 0.5 L Est GFR (CKD-EPI)AfAm 178.28 Est GFR (CKD-EPI)NonAf 153.82 Random Glucose 82 Lactic Acid 0.6 Calcium 9.1 Phosphorus Magnesium Total Bilirubin 0.3 AST 94 H ALT 104 H Alkaline Phosphatase 387 H Total Protein 8.5 H Albumin 3.4 Urine Color Yellow Urine Appearance Cloudy Urine pH 8.0 Ur Specific [place] 1.008 L Urine Protein Negative Urine Glucose (UA) Negative Urine Ketones Negative Urine Blood Negative Urine Nitrite Negative Urine Bilirubin Negative Urine Urobilinogen 0.2 Ur Leukocyte Esterase Negative 11/04/18 11/05/18 11/05/18 20:30 06:10 06:10 WBC 11.7 H RBC 4.03 Hgb 13.5 Hct 39.0 MCV 96.8 H MCH 33.4 MCHC 34.5 RDW 14.9 Plt Count 154 D MPV 10.3 D Absolute Neuts (auto) 10.5 H Neutrophils % 90.1 H Lymphocytes % 4.4 L D Monocytes % 4.5 Eosinophils % 0.8 Basophils % 0.2 Nucleated RBC % 0 PT with INR 13.70 H INR 1.16 H PTT (Actin FS) 43.8 H Sodium Potassium Chloride Carbon Dioxide Anion Gap BUN Creatinine Est GFR (CKD-EPI)AfAm Est GFR (CKD-EPI)NonAf Random Glucose Lactic Acid 1.4 Calcium Phosphorus Magnesium Total Bilirubin AST ALT Alkaline Phosphatase Total Protein Albumin Urine Color Urine Appearance Urine pH Ur Specific [place] Urine Protein Urine Glucose (UA) Urine Ketones Urine Blood Urine Nitrite Urine Bilirubin Urine Urobilinogen Ur Leukocyte Esterase 11/05/18 06:10 WBC RBC Hgb Hct MCV MCH MCHC RDW Plt Count MPV Absolute Neuts (auto) Neutrophils % Lymphocytes % Monocytes % Eosinophils % Basophils % Nucleated RBC % PT with INR INR PTT (Actin FS) Sodium 138 Potassium 4.3 Chloride 104 Carbon Dioxide 28 Anion Gap 6 L BUN 10.0 Creatinine 0.6 Est GFR (CKD-EPI)AfAm 165.41 Est GFR (CKD-EPI)NonAf 142.72 Random Glucose 76 Lactic Acid Calcium 9.1 Phosphorus 4.2 Magnesium 2.1 Total Bilirubin 0.4 AST 156 H ALT 154 H Alkaline Phosphatase 456 H Total Protein 7.7 Albumin 3.2 L Urine Color Urine Appearance Urine pH Ur Specific [place] Urine Protein Urine Glucose (UA) Urine Ketones Urine Blood Urine Nitrite Urine Bilirubin Urine Urobilinogen Ur Leukocyte Esterase Microbiology 11/04/18 13:21 Blood Culture - Preliminary Blood - Peripheral Venous NO GROWTH OBTAINED AFTER 24 HOURS, INCUBATION TO CONTINUE FOR 4 DAYS. 11/04/18 13:21 Blood Culture - Preliminary Blood - Peripheral Venous NO GROWTH OBTAINED AFTER 24 HOURS, INCUBATION TO CONTINUE FOR 4 DAYS. 11/04/18 13:21 Urine Culture - Final Urine - Urine Clean Catch NO GROWTH OBTAINED ASSESSMENT AND PLAN: 23 year old man with a history of profound mental retardation, CP, epilepsy, chronic hypoxic respiratory failure, asthma, Herpes encephalitis, left hip hemarthrosis, dysphagia s/p PEG, chronic constipation, GERD who presented to the ED from [facility] with respiratory distress, chest congestion, non-productive cough, and hypoxia. Sepsis/Acute on chronic hypoxic respiratory failure secondary to aspiration pna and asthma -white count elevated, low grade temps, tachycardic this AM -c/w zosyn, dc azithro -inhaled BD -aspiration precautions -resume tube feeds in AM -ID and pul eval appreciated -fu cultures -supp 02 as needed Transaminitis -possibly due to sepsis -check abdominal us -monitor levels Profound mental retardation Cerebral palsy Epilepsy Hx Herpes encephalitis GERD Dysphagia s/p PEG Chronic constipation -continue with current care
--- NOTE | 2018-11-05 15:34 | CONS ---
PULMONARY CONSULTATION DATE OF CONSULTATION: 11/05/2018 REFERRING PHYSICIAN: Verónica Shen MD HISTORY OF PRESENT ILLNESS: History was obtained from chart. The patient is a 23-year-old male known to me from previous hospitalization with past medical of asthma, profound mental retardation, cerebral palsy, herpes encephalitis, left hip hemarthrosis with contracture, functional quadriplegia, epilepsy, chronic constipation, chronic dysphagia, GERD, recurrent pneumonias, admitted to [facility] from [facility] secondary to increasing shortness of breath, chest congestion, and O2 saturation 78. Patient apparently was noted at the detention to have the above symptoms. He was noted to be hypoxic. EMS was called. The patient was brought to the emergency room with the above. In the ER, he was noted to be in marked respiratory distress. He was treated with inhaled bronchodilators, supplemental O2 with some improvement, and transferred up to the medical floor for further management. Of note is he had a chest x-ray performed which revealed opacification of the left hemithorax which is essentially unchanged from previous exams. No further history is available at this time. PAST MEDICAL HISTORY: Includes severe mental retardation; cerebral palsy; asthma; herpes encephalitis; left hip hemarthrosis and contracture; epilepsy; chronic constipation; chronic dysphagia; GERD; recurrent pneumonias. REVIEW OF SYSTEMS: Unable to obtain. CURRENT MEDICATIONS: Include Asmanex, Zovirax, piperacillin, Lovenox, Lamictal, Bacid, phenobarbital, DuoNeb, Milk of Magnesia, and Zantac. PHYSICAL EXAMINATION: General: The patient is a thin, contracted male, awake, nonverbal, on Ventimask , appears in no acute respiratory distress. Vital Signs: He is currently afebrile, blood pressure is 112/50, respiratory rate is 19, O2 saturation is 99% on O2. HEENT: Exam is normocephalic, atraumatic. Neck: Supple. Heart: Regular S1 and S2. Chest: Bibasilar rhonchi. Abdomen: Soft. Bowel sounds are positive. Extremities: Bilateral lower extremity contractures. LABORATORIES: Venous blood gas: 7.39, PCO2 of 48, a PO2 of 165, bicarbonate of 28, and a saturation of 94. WBC is 11.7, hemoglobin 13.5, hematocrit is 39, platelet count is 154,000; there are 90 polys, 4 lymphs, and 4 monos. Chemistry: BUN 10 , creatinine 0.6. LFTs: AST is 156, ALT is 154, and alkaline phosphatase is 1456. Chest x-ray: Opacification of the left hemithorax with scoliosis. There is mediastinal shift to the left. Increased markings to the right hemithorax. Abdominal distention. IMPRESSION: 1. Acute hypoxic respiratory failure. Secondary to pneumonia, likely aspiration. 2. Opacification of the left hemithorax. 3. Severe mental retardation. 4. Cerebral palsy. 5. Functional quadriplegia. 6. Seizures. 7. Elevated liver function tests. PLAN: Inhaled bronchodilators. Antibiotics as per Infectious Disease. Supplemental O2 to maintain O2 saturation 90% or greater. NIPPV as needed. If the patient develops increasing respiratory distress, oropharyngeal suctioning. Aspiration precautions. Followup chest CT and also monitor LFTs. JUNITO VILLALTA M.D. [id number] MTDD
[2018-11-05] MEDS: MOMETASONE FUROATE 220 MCG/IH INHALER IH SCH (22:02)
[2018-11-05] MEDS: LACTOBACILLUS ACIDOPHILUS 1 TABLET PO SCH (22:03)
[2018-11-05] MEDS ORDERED: ACETAMINOPHEN 650 MG/20.3 ML ORAL SOLUTION (CUPS) PO ONE (23:54)
[2018-11-06] MEDS ORDERED: PIPERACILLIN/TAZOBACTAM 3.375 GM VIAL IVPB ONE ×3 (00:07→17:25)
[2018-11-06] MEDS ORDERED: DEXTROSE 5%-WATER - 50 ML IVPB ONE ×3 (00:07→17:25)
[2018-11-06] MEDS: PIPERACILLIN/TAZOB 3.375 GM 3.375 GM in DEXTROSE 5%-WATER - 50 ML IVPB SCH ×3 (01:19→17:28)
--- NOTE | 2018-11-06 05:40 | PN ---
Physical Exam: SUBJECTIVE: Patient seen and examined at bed side , had a fever 100.5 over night , breathing better . OBJECTIVE: Vital Signs Period Temp Pulse Resp BP Sys/Linares Pulse Ox Last 24 Hr 97.9 F-100.5 F 66-130 18-40 112-140/50-71 95-99 GENERAL: Awake, alert, in no distress, nonverbal at baseline HEAD: Normal with no signs of trauma. EYES: Pupils equal, round and reactive to light, , sclera anicteric, conjunctiva clear. ENT: MMM NECK: supple LUNGS: Breath sounds equal, coarse wheezes noted bilaterally down to the bases. HEART: Regular rate and rhythm, normal S1 and S2 without murmur, rub or gallop. ABDOMEN: Soft, nontender, not distended, normoactive bowel sounds, PEG in place. LOWER EXTREMITIES: 2+ pulses, warm, well-perfused.contracted NEUROLOGICAL: awake , alert . SKIN: Warm, dry, Laboratory Results - last 24 hr 11/05/18 11/05/18 11/05/18 06:10 06:10 06:10 WBC 11.7 H RBC 4.03 Hgb 13.5 Hct 39.0 MCV 96.8 H MCH 33.4 MCHC 34.5 RDW 14.9 Plt Count 154 D MPV 10.3 D Absolute Neuts (auto) 10.5 H Neutrophils % 90.1 H Lymphocytes % 4.4 L D Monocytes % 4.5 Eosinophils % 0.8 Basophils % 0.2 Nucleated RBC % 0 PT with INR 13.70 H INR 1.16 H PTT (Actin FS) 43.8 H Sodium 138 Potassium 4.3 Chloride 104 Carbon Dioxide 28 Anion Gap 6 L BUN 10.0 Creatinine 0.6 Est GFR (CKD-EPI)AfAm 165.41 Est GFR (CKD-EPI)NonAf 142.72 Random Glucose 76 Calcium 9.1 Phosphorus 4.2 Magnesium 2.1 Total Bilirubin 0.4 AST 156 H ALT 154 H Alkaline Phosphatase 456 H Total Protein 7.7 Albumin 3.2 L Active Medications Generic Name Dose Route Start Last Admin Trade Name Freq PRN Reason Stop Dose Admin Acyclovir 400 mg 11/04/18 22:00 11/05/18 22:05 Zovirax - GT 400 mg BID JORGE Administration Albuterol/Ipratropium 1 amp 11/04/18 23:00 11/05/18 20:33 Duoneb - NEB 1 amp RQID JORGE Administration Baclofen 10 mg 11/04/18 22:00 11/05/18 22:03 Lioresal - GT 10 mg BID JORGE Administration Enoxaparin Sodium 40 mg 11/05/18 10:00 11/05/18 10:21 Lovenox - SQ 40 mg DAILY JORGE Administration Piperacillin Sod/Tazobactam 50 mls @ 100 mls/hr 11/05/18 10:00 11/06/18 01:19 Sod 3.375 gm/ Dextrose IVPB 100 mls/hr Q8H-IV JORGE Administration Protocol Lactobacillus Acidophilus 1 tab 11/04/18 22:00 11/05/18 22:03 Bacid - PO 1 tab HS JORGE Administration Lamotrigine 200 mg 11/06/18 10:00 Lamictal - PO BID JORGE Magnesium Hydroxide 20 ml 11/04/18 22:00 11/05/18 22:05 Milk Of Magnesia - GT 20 ml BID JORGE Administration Mometasone Furoate 1 puff 11/04/18 22:00 11/05/18 22:02 Asmanex 220mcg - IH Not Given HS JORGE Phenobarbital 48 mg 11/04/18 22:00 11/05/18 22:04 Phenobarbital Liquid - PO 48 mg BID JORGE Administration Ranitidine HCl 75 mg 11/04/18 22:00 11/05/18 22:03 Zantac - PO 75 mg BID JORGE Administration CBC, BMP 11/06/18 06:20 11/06/18 06:20 ASSESSMENT/PLAN: 23 y/o M resident of [facility], with a PMHx of profound intellectual disabilities, Cerebral palsy, Epilepsy, Left Hip Hemarthrosis, Hip contracture, Chronic constipation, Chronic dysphagia, Asthma, GERD, Herpes encephalitis, with multiple recent admissions for pneumonia, presents after experiencing respiratory distress. #acute hypoxic respiratory distress likely 2/2 aspiration PNA * CXR showing increased markings in the right hemithorax * h/o recurrent aspiration PNA * s/p azithromycin, vancomycin and zosyn in ED * will continue with Zosyn 3.375 q8h monotherapy d2 * ID consulted, Stella, for further mgmt * tele for continuous SPO2 monitoring #Epilepsy * resume home medications #Chronic constipation * resume home bowel regimen #asthma * resume home nebulizers/inhalers #FEN * no fluids indicated * monitor lytes * cont tube feed #Prophy * DVTS : Lovenox 40m SQ daily * GI: Ranitidine 150mg daily #Dispo * tele for continuous SPO2 monitoring. Visit type - Emergency Visit Emergency Visit: Yes ED Registration Date: 11/04/18 Care time: The patient presented to the Emergency Department on the above date and was hospitalized for further evaluation of their emergent condition. - New Patient This patient is new to me today: No - Critical Care Critical Care patient: No
[2018-11-06 06:52] LABS: BASO % 0.2 % (0-2.0); EOS % 1.5 % (0-4.5); HEMATOCRIT 41.5 % (35.4-49); HEMOGLOBIN 14.3 GM/dL (11.7-16.9); LYMPH % 13.2 % (8-40); MCH 33.5 pg (25.7-33.7); MCHC 34.4 g/dl (32.0-35.9); MEAN CELL VOLUME 97.4 fl (80-96); MEAN PLT VOLUME 9.8 fl (7.5-11.1); MONO % 6.4 % (3.8-10.2); NEUT % 78.7 % (42.8-82.8); PLATELET COUNT 205 K/MM3 (134-434); RBC 4.26 M/mm3 (4.00-5.60); RDW 15.1 % (11.9-15.9); WHITE BLOOD COUNT 9.3 K/mm3 (4.0-10.0)
[2018-11-06 07:35] LABS: ALBUMIN 3.5 g/dl (3.4-5.0); BILIRUBIN,TOTAL 0.4 mg/dL (0.2-1); BLOOD UREA NITROGEN 10.9 mg/dL (7-18); CALCIUM 9.3 mg/dL (8.5-10.1); CREATININE 0.8 mg/dL (0.55-1.3); PHOSPHOROUS 4.2 mg/dL (2.5-4.9); TOT PROT 8.5 g/dl (6.4-8.2)
[2018-11-06] MEDS: ALBUTEROL SO4 2.5/IPRATROPIUM 0.5 INH SOL 3 ML VIAL.NEB. NEB SCH ×4 (08:06→20:20)
[2018-11-06] MEDS: RANITIDINE HCL 150 MG TABLET (FP) PO SCH ×2 (09:00→21:12)
[2018-11-06] MEDS: lamoTRIgine 100 MG TABLET (FP) PO SCH ×2 (09:01→21:13)
[2018-11-06] MEDS: BACLOFEN 10 MG TABLET (FP) GT SCH ×2 (09:02→21:12)
[2018-11-06] MEDS: ACYCLOVIR 400 MG TABLET GT SCH ×2 (09:02→21:14)
[2018-11-06] MEDS: MAGNESIUM HYDROX 2400MG/30ML ORAL SUSPENSION 30 ML CUP GT SCH ×2 (09:04→21:12)
[2018-11-06] MEDS: ENOXAPARIN NA (PORCINE) 40 MG/0.4 ML DISP.SYRIN SQ SCH (09:04)
[2018-11-06] MEDS: PHENobarbital 20 MG/5 ML UNIT-DOSE CUP PO SCH ×2 (09:05→21:11)
--- NOTE | 2018-11-06 09:07 | PN ---
Progress Note, Physician History of Present Illness: pulmonary comfortable,less congested,-resp distress - Current Medication List Current Medications: Active Medications Acyclovir (Zovirax -) 400 mg GT BID [facility] Last Admin: 11/05/18 22:05 Dose: 400 mg Albuterol/Ipratropium (Duoneb -) 1 amp NEB RQID [facility] Last Admin: 11/05/18 20:33 Dose: 1 amp Baclofen (Lioresal -) 10 mg GT BID [facility] Last Admin: 11/05/18 22:03 Dose: 10 mg Enoxaparin Sodium (Lovenox -) 40 mg SQ DAILY [facility] Last Admin: 11/05/18 10:21 Dose: 40 mg Piperacillin Sod/Tazobactam (Sod 3.375 gm/ Dextrose) 50 mls @ 100 mls/hr IVPB Q8H-IV [facility]; Protocol Last Admin: 11/06/18 01:19 Dose: 100 mls/hr Lactobacillus Acidophilus (Bacid -) 1 tab PO HS [facility] Last Admin: 11/05/18 22:03 Dose: 1 tab Lamotrigine (Lamictal -) 200 mg PO BID [facility] Magnesium Hydroxide (Milk Of Magnesia -) 20 ml GT BID [facility] Last Admin: 11/05/18 22:05 Dose: 20 ml Mometasone Furoate (Asmanex 220mcg -) 1 puff [facility] Last Admin: 11/05/18 22:02 Dose: Not Given Phenobarbital (Phenobarbital Liquid -) 48 mg PO BID [facility] Last Admin: 11/05/18 22:04 Dose: 48 mg Ranitidine HCl (Zantac -) 75 mg PO BID [facility] Last Admin: 11/05/18 22:03 Dose: 75 mg - Objective Vital Signs: Vital Signs Temperature 98.5 F 11/06/18 07:59 Pulse Rate 83 11/06/18 07:59 Respiratory Rate 20 11/06/18 07:59 Blood Pressure 123/75 11/06/18 07:59 O2 Sat by Pulse Oximetry (%) 95 11/05/18 21:00 Constitutional: Yes: Calm, Thin Eyes: Yes: WNL HENT: Yes: WNL Neck: Yes: WNL Cardiovascular: Yes: Regular Rate and Rhythm, S1, S2 Respiratory: Yes: Rhonchi (bilateral rhonchi) Gastrointestinal: Yes: Normal Bowel Sounds, Soft Extremities: Yes: Shortened, Other (contracted) Labs: CBC, BMP 11/06/18 06:20 11/06/18 06:20 INR, PTT INR 1.16 (0.83-1.09) H 11/05/18 06:10 - ....Imaging Cat Scan: Image Reviewed Problem List - Problems (1) Acute hypoxemic respiratory failure Code(s): J96.01 - ACUTE RESPIRATORY FAILURE WITH HYPOXIA (2) Aspiration pneumonitis Code(s): J69.0 - PNEUMONITIS DUE TO INHALATION OF FOOD AND VOMIT (3) Fever Code(s): R50.9 - FEVER, UNSPECIFIED (4) Pneumonia Code(s): J18.9 - PNEUMONIA, UNSPECIFIED ORGANISM (5) Respiratory distress Code(s): R06.03 - ACUTE RESPIRATORY DISTRESS (6) Asthma Code(s): J45.909 - UNSPECIFIED ASTHMA, UNCOMPLICATED (7) Epilepsy Code(s): G40.909 - EPILEPSY, UNSP, NOT INTRACTABLE, WITHOUT STATUS EPILEPTICUS (8) PEG (percutaneous endoscopic gastrostomy) status Code(s): Z93.1 - GASTROSTOMY STATUS (9) Profound mental retardation Code(s): F73 - PROFOUND INTELLECTUAL DISABILITIES (10) Respiratory failure Code(s): J96.90 - RESPIRATORY FAILURE, UNSP, UNSP W HYPOXIA OR HYPERCAPNIA Qualifiers: Chronicity: acute Respiratory failure complication: hypoxia Qualified Code(s): J96.01 - Acute respiratory failure with hypoxia Assessment/Plan MP ACUTE HYPOXEMIC RESPIRATORY FAILURE improving PNEUMONIA OPACIFICATION LEFT HEMITHORAX SEVERE MENTAL RETARDATION CEREBRAL PALSY FUNCTIONAL QUADRAPLEGIA SEIZURES ELEVATED LFTS PLAN ABX INHALED BRONCHODILATORS O2 TO MAINTAIN O2 SAT >90% NIPPV NEEDED ORAL/PHARYNGEAL SUCTIONING ASPIRATION PRECAUTIONS MONITOR LFTS DR VILLALTA Problem List - Problems (1) Acute hypoxemic respiratory failure Code(s): J96.01 - ACUTE RESPIRATORY FAILURE WITH HYPOXIA (2) Aspiration pneumonitis Code(s): J69.0 - PNEUMONITIS DUE TO INHALATION OF FOOD AND VOMIT (3) Fever Code(s): R50.9 - FEVER, UNSPECIFIED (4) Pneumonia Code(s): J18.9 - PNEUMONIA, UNSPECIFIED ORGANISM (5) Respiratory distress Code(s): R06.03 - ACUTE RESPIRATORY DISTRESS (6) Asthma Code(s): J45.909 - UNSPECIFIED ASTHMA, UNCOMPLICATED (7) Epilepsy Code(s): G40.909 - EPILEPSY, UNSP, NOT INTRACTABLE, WITHOUT STATUS EPILEPTICUS (8) PEG (percutaneous endoscopic gastrostomy) status Code(s): Z93.1 - GASTROSTOMY STATUS (9) Profound mental retardation Code(s): F73 - PROFOUND INTELLECTUAL DISABILITIES (10) Respiratory failure Code(s): J96.90 - RESPIRATORY FAILURE, UNSP, UNSP W HYPOXIA OR HYPERCAPNIA Qualifiers: Chronicity: acute Respiratory failure complication: hypoxia Qualified Code(s): J96.01 - Acute respiratory failure with hypoxia
--- NOTE | 2018-11-06 12:42 | PN ---
Teaching Attending Note Name of Resident: Ervin Clinton ATTENDING PHYSICIAN STATEMENT I saw and evaluated the patient. I reviewed the resident's note and discussed the case with the resident. I agree with the resident's findings and plan as documented. SUBJECTIVE: Patient appears comfortable. OBJECTIVE: Vital Signs Period Temp Pulse Resp BP Sys/Linares Pulse Ox Last 24 Hr 97.9 F-100.5 F 62-130 18-40 99-140/51-75 95-96 HEART: S1S2, RRR LUNGS: Clear with poor effort ABDOMEN: Soft, non-distended, normal BS, G-tube site clean EXTREMITIES: Contracted, no edema Laboratory Results - last 24 hr 11/06/18 11/06/18 06:20 06:20 WBC 9.3 RBC 4.26 Hgb 14.3 Hct 41.5 MCV 97.4 H MCH 33.5 MCHC 34.4 RDW 15.1 Plt Count 205 D MPV 9.8 Absolute Neuts (auto) 7.3 Neutrophils % 78.7 Lymphocytes % 13.2 D Monocytes % 6.4 Eosinophils % 1.5 D Basophils % 0.2 Nucleated RBC % 0 Sodium 139 Potassium 4.0 Chloride 103 Carbon Dioxide 27 Anion Gap 10 BUN 10.9 Creatinine 0.8 Est GFR (CKD-EPI)AfAm 146.96 Est GFR (CKD-EPI)NonAf 126.80 Random Glucose 84 Calcium 9.3 Phosphorus 4.2 Magnesium 2.0 Total Bilirubin 0.4 AST 114 H ALT 138 H Alkaline Phosphatase 525 H Total Protein 8.5 H Albumin 3.5 Current Medications Generic Name Dose Route Start Last Admin Trade Name Freq PRN Reason Stop Dose Admin Acyclovir 400 mg 11/04/18 22:00 11/06/18 09:02 Zovirax - GT 400 mg BID JORGE Administration Albuterol/Ipratropium 1 amp 11/04/18 23:00 11/06/18 08:06 Duoneb - NEB 1 amp RQID JORGE Administration Baclofen 10 mg 11/04/18 22:00 11/06/18 09:02 Lioresal - GT 10 mg BID JORGE Administration Enoxaparin Sodium 40 mg 11/05/18 10:00 11/06/18 09:04 Lovenox - SQ 40 mg DAILY JORGE Administration Piperacillin Sod/Tazobactam 50 mls @ 100 mls/hr 11/05/18 10:00 11/06/18 09:03 Sod 3.375 gm/ Dextrose IVPB 100 mls/hr Q8H-IV JORGE Administration Protocol Lactobacillus Acidophilus 1 tab 11/04/18 22:00 11/05/18 22:03 Bacid - PO 1 tab HS JORGE Administration Lamotrigine 200 mg 11/06/18 10:00 11/06/18 09:01 Lamictal - PO 200 mg BID JORGE Administration Magnesium Hydroxide 20 ml 11/04/18 22:00 11/06/18 09:04 Milk Of Magnesia - GT 20 ml BID JORGE Administration Mometasone Furoate 1 puff 11/04/18 22:00 11/05/18 22:02 Asmanex 220mcg - IH Not Given HS JORGE Phenobarbital 48 mg 11/04/18 22:00 11/06/18 09:05 Phenobarbital Liquid - PO 48 mg BID JORGE Administration Ranitidine HCl 75 mg 11/04/18 22:00 11/06/18 09:00 Zantac - PO 75 mg BID JORGE Administration ASSESSMENT AND PLAN: This is a 23 year old man with a history of profound mental retardation, cerebral palsy, epilepsy, asthma, chronic hypoxic respiratory failure, hypothermia, Herpes encephalitis, left hip hemarthrosis, dysphagia, PEG, chronic constipation, GERD who presented to the ED from [facility] with respiratory distress, chest congestion, non-producive cough, and hypoxia. 1. Acute on chronic hypoxic respiratory failure secondary to aspiration pneumonia and asthma - Oxygen to maintain saturation >90% - Continue Asmanex, DuoNeb, Zosyn - Chest CT pending 2. Profound mental retardation 3. Cerebral palsy 4. Epilepsy - Continue Phenobarbital, Onfi, Lamictal, Klonopin 5. History of Herpes encephalitis - Continue acyclovir 6. GERD - Continue Zantac 7. Dysphagia - Has PEG 8. Chronic constipation - Continue milk of magnesia, Fleet enema as needed 9. Nutrition - Resume PEG feeds
--- NOTE | 2018-11-06 13:41 | PN ---
Progress Note, Physician History of Present Illness: patient slightly more alert still with secretions calm - Current Medication List Current Medications: Active Medications Acyclovir (Zovirax -) 400 mg GT BID [facility] Last Admin: 11/06/18 09:02 Dose: 400 mg Albuterol/Ipratropium (Duoneb -) 1 amp NEB RQID [facility] Last Admin: 11/06/18 12:25 Dose: 1 amp Baclofen (Lioresal -) 10 mg GT BID [facility] Last Admin: 11/06/18 09:02 Dose: 10 mg Clobazam (Onfi -) 10 mg GT HS [facility] Clonazepam (Klonopin -) 1.5 mg GT TID [facility] Enoxaparin Sodium (Lovenox -) 40 mg SQ DAILY [facility] Last Admin: 11/06/18 09:04 Dose: 40 mg Piperacillin Sod/Tazobactam (Sod 3.375 gm/ Dextrose) 50 mls @ 100 mls/hr IVPB Q8H-IV [facility]; Protocol Last Admin: 11/06/18 09:03 Dose: 100 mls/hr Lactobacillus Acidophilus (Bacid -) 1 tab PO HS [facility] Last Admin: 11/05/18 22:03 Dose: 1 tab Lamotrigine (Lamictal -) 200 mg PO BID [facility] Last Admin: 11/06/18 09:01 Dose: 200 mg Magnesium Hydroxide (Milk Of Magnesia -) 20 ml GT BID [facility] Last Admin: 11/06/18 09:04 Dose: 20 ml Mometasone Furoate (Asmanex 220mcg -) 1 puff [facility] Last Admin: 11/05/18 22:02 Dose: Not Given Phenobarbital (Phenobarbital Liquid -) 48 mg PO BID [facility] Last Admin: 11/06/18 09:05 Dose: 48 mg Ranitidine HCl (Zantac -) 75 mg PO BID [facility] Last Admin: 11/06/18 09:00 Dose: 75 mg - Objective Vital Signs: Vital Signs Temperature 98.6 F 11/06/18 12:08 Pulse Rate 62 11/06/18 12:08 Respiratory Rate 18 11/06/18 12:08 Blood Pressure 99/55 L 11/06/18 12:08 O2 Sat by Pulse Oximetry (%) 96 11/06/18 09:00 Constitutional: Yes: Calm, Mild Distress Cardiovascular: Yes: Regular Rate and Rhythm Respiratory: Yes: Poor Air Entry, Other (on face mask) Gastrointestinal: Yes: Normal Bowel Sounds, Soft, Other Musculoskeletal: Yes: WNL Extremities: Yes: Other (contracted) Neurological: Yes: Alert, Other Psychiatric: Yes: Other Labs: CBC, BMP 11/06/18 06:20 11/06/18 06:20 INR, PTT INR 1.16 (0.83-1.09) H 11/05/18 06:10 Assessment/Plan 3 year old man with a history of profound mental retardation, CP, epilepsy, chronic hypoxic respiratory failure, asthma, Herpes encephalitis, left hip hemarthrosis, dysphagia s/p PEG, chronic constipation, GERD who presented to the ED from [facility] with respiratory distress, chest congestion, non-productive cough, and hypoxia. Sepsis/Acute on chronic hypoxic respiratory failure secondary to aspiration pna and asthma Transaminitis Profound mental retardation Cerebral palsy Epilepsy Hx Herpes encephalitis GERD Dysphagia s/p PEG Chronic constipation plan continue abx resp support asp precautions rest as per the team
[2018-11-06] MEDS: clonazePAM 0.5 MG TABLET GT SCH ×2 (13:47→21:11)
[2018-11-06] MEDS: LACTOBACILLUS ACIDOPHILUS 1 TABLET PO SCH (21:12)
[2018-11-06] MEDS: MOMETASONE FUROATE 220 MCG/IH INHALER IH SCH (22:00)
[2018-11-07] MEDS ORDERED: DEXTROSE 5%-WATER - 50 ML IVPB ONE ×3 (03:57→16:33)
[2018-11-07] MEDS ORDERED: PIPERACILLIN/TAZOBACTAM 3.375 GM VIAL IVPB ONE ×3 (03:57→16:33)
[2018-11-07] MEDS: PIPERACILLIN/TAZOB 3.375 GM 3.375 GM in DEXTROSE 5%-WATER - 50 ML IVPB SCH ×3 (04:00→17:12)
[2018-11-07] MEDS: clonazePAM 0.5 MG TABLET GT SCH ×3 (06:50→21:33)
[2018-11-07] MEDS: ALBUTEROL SO4 2.5/IPRATROPIUM 0.5 INH SOL 3 ML VIAL.NEB. NEB SCH ×4 (08:34→20:35)
--- NOTE | 2018-11-07 08:59 | PN ---
Progress Note, Physician History of Present Illness: pulmonary awake,non-verbal,less congested,-resp distress - Current Medication List Current Medications: Active Medications Acyclovir (Zovirax -) 400 mg GT BID [facility] Last Admin: 11/06/18 21:14 Dose: 400 mg Albuterol/Ipratropium (Duoneb -) 1 amp NEB RQID [facility] Last Admin: 11/06/18 20:20 Dose: 1 amp Baclofen (Lioresal -) 10 mg GT BID [facility] Last Admin: 11/06/18 21:12 Dose: 10 mg Clobazam (Onfi -) 10 mg GT HS [facility] Clobazam (Onfi -) 5 mg GT DAILY [facility] Clonazepam (Klonopin -) 1.5 mg GT TID [facility] Last Admin: 11/07/18 06:50 Dose: Not Given Enoxaparin Sodium (Lovenox -) 40 mg SQ DAILY [facility] Last Admin: 11/06/18 09:04 Dose: 40 mg Piperacillin Sod/Tazobactam (Sod 3.375 gm/ Dextrose) 50 mls @ 100 mls/hr IVPB Q8H-IV [facility]; Protocol Last Admin: 11/07/18 04:00 Dose: 100 mls/hr Lactobacillus Acidophilus (Bacid -) 1 tab PO HS [facility] Last Admin: 11/06/18 21:12 Dose: 1 tab Lamotrigine (Lamictal -) 200 mg PO BID [facility] Last Admin: 11/06/18 21:13 Dose: 200 mg Magnesium Hydroxide (Milk Of Magnesia -) 20 ml GT BID [facility] Last Admin: 11/06/18 21:12 Dose: 20 ml Mometasone Furoate (Asmanex 220mcg -) 1 puff IH [facility] Last Admin: 11/06/18 22:00 Dose: Not Given Phenobarbital (Phenobarbital Liquid -) 48 mg PO BID [facility] Last Admin: 11/06/18 21:11 Dose: 48 mg Ranitidine HCl (Zantac -) 75 mg PO BID [facility] Last Admin: 11/06/18 21:12 Dose: 75 mg - Objective Vital Signs: Vital Signs Temperature 98.5 F 11/07/18 06:50 Pulse Rate 73 11/07/18 06:50 Respiratory Rate 20 11/07/18 08:20 Blood Pressure 89/35 L 11/07/18 06:50 O2 Sat by Pulse Oximetry (%) 93 L 11/07/18 08:20 Constitutional: Yes: Calm, Thin Eyes: Yes: WNL HENT: Yes: WNL Neck: Yes: WNL Cardiovascular: Yes: Regular Rate and Rhythm, S1, S2 Respiratory: Yes: Rhonchi (less rhonchi bilaterally) Gastrointestinal: Yes: Normal Bowel Sounds, Soft Extremities: Yes: Shortened, Other (contracted) Edema: No Labs: CBC, BMP 11/06/18 06:20 11/06/18 06:20 INR, PTT INR 1.16 (0.83-1.09) H 11/05/18 06:10 Problem List - Problems (1) Acute hypoxemic respiratory failure Code(s): J96.01 - ACUTE RESPIRATORY FAILURE WITH HYPOXIA (2) Aspiration pneumonitis Code(s): J69.0 - PNEUMONITIS DUE TO INHALATION OF FOOD AND VOMIT (3) Fever Code(s): R50.9 - FEVER, UNSPECIFIED (4) Pneumonia Code(s): J18.9 - PNEUMONIA, UNSPECIFIED ORGANISM (5) Respiratory distress Code(s): R06.03 - ACUTE RESPIRATORY DISTRESS (6) Asthma Code(s): J45.909 - UNSPECIFIED ASTHMA, UNCOMPLICATED (7) Epilepsy Code(s): G40.909 - EPILEPSY, UNSP, NOT INTRACTABLE, WITHOUT STATUS EPILEPTICUS (8) PEG (percutaneous endoscopic gastrostomy) status Code(s): Z93.1 - GASTROSTOMY STATUS (9) Profound mental retardation Code(s): F73 - PROFOUND INTELLECTUAL DISABILITIES (10) Respiratory failure Code(s): J96.90 - RESPIRATORY FAILURE, UNSP, UNSP W HYPOXIA OR HYPERCAPNIA Qualifiers: Chronicity: acute Respiratory failure complication: hypoxia Qualified Code(s): J96.01 - Acute respiratory failure with hypoxia Assessment/Plan MP ACUTE HYPOXEMIC RESPIRATORY FAILURE improving PNEUMONIA OPACIFICATION LEFT HEMITHORAX SEVERE MENTAL RETARDATION CEREBRAL PALSY FUNCTIONAL QUADRAPLEGIA SEIZURES ELEVATED LFTS PLAN ABX INHALED BRONCHODILATORS O2 TO MAINTAIN O2 SAT >90% NIPPV NEEDED ORAL/PHARYNGEAL SUCTIONING ASPIRATION PRECAUTIONS MONITOR LFTS DR VILLALTA Problem List - Problems (1) Acute hypoxemic respiratory failure Code(s): J96.01 - ACUTE RESPIRATORY FAILURE WITH HYPOXIA (2) Aspiration pneumonitis Code(s): J69.0 - PNEUMONITIS DUE TO INHALATION OF FOOD AND VOMIT (3) Fever Code(s): R50.9 - FEVER, UNSPECIFIED (4) Pneumonia Code(s): J18.9 - PNEUMONIA, UNSPECIFIED ORGANISM (5) Respiratory distress Code(s): R06.03 - ACUTE RESPIRATORY DISTRESS (6) Asthma Code(s): J45.909 - UNSPECIFIED ASTHMA, UNCOMPLICATED (7) Epilepsy Code(s): G40.909 - EPILEPSY, UNSP, NOT INTRACTABLE, WITHOUT STATUS EPILEPTICUS (8) PEG (percutaneous endoscopic gastrostomy) status Code(s): Z93.1 - GASTROSTOMY STATUS (9) Profound mental retardation Code(s): F73 - PROFOUND INTELLECTUAL DISABILITIES (10) Respiratory failure Code(s): J96.90 - RESPIRATORY FAILURE, UNSP, UNSP W HYPOXIA OR HYPERCAPNIA Qualifiers: Chronicity: acute Respiratory failure complication: hypoxia Qualified Code(s): J96.01 - Acute respiratory failure with hypoxia
[2018-11-07] MEDS ORDERED: PT OWN MED DRAWER 7, Y5N ONE (09:58)
--- NOTE | 2018-11-07 10:44 | PN ---
Physical Exam: SUBJECTIVE: Patient seen and examined. He appears comfortable. OBJECTIVE: Vital Signs Period Temp Pulse Resp BP Sys/Linares Pulse Ox Last 24 Hr 98 F-98.9 F 62-82 18-20 89-105/35-55 93-100 GENERAL: The patient is awake, non-verbal, in no acute distress. LUNGS: Breath sounds equal, clear to auscultation bilaterally, no wheezes, no crackles, no accessory muscle use. HEART: Regular rate and rhythm, S1, S2 without murmur, rub or gallop. ABDOMEN: Soft, nondistended, normoactive bowel sounds, G-tube site clean, no masses. EXTREMITIES: 2+ pulses, warm, well-perfused, contracted, no edema. Active Medications Generic Name Dose Route Start Last Admin Trade Name Freq PRN Reason Stop Dose Admin Acyclovir 400 mg 11/04/18 22:00 11/06/18 21:14 Zovirax - GT 400 mg BID [facility] Administration Albuterol/Ipratropium 1 amp 11/04/18 23:00 11/07/18 08:34 Duoneb - NEB 1 amp RQID [facility] Administration Baclofen 10 mg 11/04/18 22:00 11/06/18 21:12 Lioresal - GT 10 mg BID [facility] Administration Clobazam 10 mg 11/06/18 22:00 Onfi - GT HS [facility] Clobazam 5 mg 11/07/18 10:00 Onfi - GT DAILY [facility] Clonazepam 1.5 mg 11/06/18 14:00 11/07/18 06:50 Klonopin - GT Not Given TID [facility] Enoxaparin Sodium 40 mg 11/05/18 10:00 11/06/18 09:04 Lovenox - SQ 40 mg DAILY [facility] Administration Piperacillin Sod/Tazobactam 50 mls @ 100 mls/hr 11/05/18 10:00 11/07/18 04:00 Sod 3.375 gm/ Dextrose IVPB 100 mls/hr Q8H-IV [facility] Administration Protocol Lactobacillus Acidophilus 1 tab 11/04/18 22:00 11/06/18 21:12 Bacid - PO 1 tab HS [facility] Administration Lamotrigine 200 mg 11/06/18 10:00 11/06/18 21:13 Lamictal - PO 200 mg BID [facility] Administration Magnesium Hydroxide 20 ml 11/04/18 22:00 11/06/18 21:12 Milk Of Magnesia - GT 20 ml BID [facility] Administration Mometasone Furoate 1 puff 11/04/18 22:00 11/06/18 22:00 Asmanex 220mcg - IH Not Given HS [facility] Phenobarbital 48 mg 11/04/18 22:00 11/06/18 21:11 Phenobarbital Liquid - PO 48 mg BID [facility] Administration Ranitidine HCl 75 mg 11/04/18 22:00 11/06/18 21:12 Zantac - PO 75 mg BID [facility] Administration ASSESSMENT/PLAN: This is a 23 year old man with a history of profound mental retardation, cerebral palsy, epilepsy, asthma, chronic hypoxic respiratory failure, hypothermia, Herpes encephalitis, left hip hemarthrosis, dysphagia, PEG, chronic constipation, GERD who presented to the ED from [facility] with respiratory distress, chest congestion, non-producive cough, and hypoxia. 1. Acute on chronic hypoxic respiratory failure secondary to aspiration pneumonia and asthma - Oxygen to maintain saturation >90% - Continue Asmanex, DuoNeb, Zosyn - Chest CT pending 2. Profound mental retardation 3. Cerebral palsy 4. Epilepsy - Continue Phenobarbital, Onfi, Lamictal, Klonopin 5. History of Herpes encephalitis - Continue acyclovir 6. GERD - Continue Zantac 7. Dysphagia - Has PEG 8. Chronic constipation - Continue milk of magnesia, Fleet enema as needed 9. Nutrition - Resume PEG feeds Visit type - Emergency Visit Emergency Visit: Yes ED Registration Date: 11/04/18 Care time: The patient presented to the Emergency Department on the above date and was hospitalized for further evaluation of their emergent condition. - New Patient This patient is new to me today: No - Critical Care Critical Care patient: No - Discharge Referral Referred to [facility] No
[2018-11-07] MEDS: ENOXAPARIN NA (PORCINE) 40 MG/0.4 ML DISP.SYRIN SQ SCH (10:49)
[2018-11-07] MEDS: MAGNESIUM HYDROX 2400MG/30ML ORAL SUSPENSION 30 ML CUP GT SCH ×2 (10:49→21:34)
[2018-11-07] MEDS: cloBAZam 10 MG TABLET GT SCH ×2 (10:50→21:32)
[2018-11-07] MEDS: RANITIDINE HCL 150 MG TABLET (FP) PO SCH ×2 (10:50→21:32)
[2018-11-07] MEDS: PHENobarbital 20 MG/5 ML UNIT-DOSE CUP PO SCH ×2 (10:53→21:35)
[2018-11-07] MEDS: BACLOFEN 10 MG TABLET (FP) GT SCH ×2 (10:53→21:35)
[2018-11-07] MEDS: lamoTRIgine 100 MG TABLET (FP) PO SCH ×2 (10:53→21:33)
[2018-11-07] MEDS: ACYCLOVIR 400 MG TABLET GT SCH ×2 (10:54→21:34)
[2018-11-07] MEDS: LACTOBACILLUS ACIDOPHILUS 1 TABLET PO SCH (21:32)
[2018-11-07] MEDS: MOMETASONE FUROATE 220 MCG/IH INHALER IH SCH (21:40)
[2018-11-08] MEDS ORDERED: PIPERACILLIN/TAZOBACTAM 3.375 GM VIAL IVPB ONE ×3 (01:16→17:13)
[2018-11-08] MEDS ORDERED: DEXTROSE 5%-WATER - 50 ML IVPB ONE ×3 (01:16→17:13)
[2018-11-08] MEDS: PIPERACILLIN/TAZOB 3.375 GM 3.375 GM in DEXTROSE 5%-WATER - 50 ML IVPB SCH ×3 (01:18→17:16)
[2018-11-08] MEDS: clonazePAM 0.5 MG TABLET GT SCH ×3 (06:30→23:07)
[2018-11-08] MEDS: ALBUTEROL SO4 2.5/IPRATROPIUM 0.5 INH SOL 3 ML VIAL.NEB. NEB SCH ×4 (07:35→20:39)
[2018-11-08 07:52] LABS: BASO % 0.3 % (0-2.0); EOS % 2.1 % (0-4.5); HEMATOCRIT 38.4 % (35.4-49); HEMOGLOBIN 13.3 GM/dL (11.7-16.9); LYMPH % 20.8 % (8-40); MCH 33.7 pg (25.7-33.7); MCHC 34.7 g/dl (32.0-35.9); MEAN CELL VOLUME 97.1 fl (80-96); MEAN PLT VOLUME 9.2 fl (7.5-11.1); MONO % 9.1 % (3.8-10.2); NEUT % 67.7 % (42.8-82.8); PLATELET COUNT 264 K/MM3 (134-434); RBC 3.96 M/mm3 (4.00-5.60); RDW 15.2 % (11.9-15.9); WHITE BLOOD COUNT 8.9 K/mm3 (4.0-10.0)
[2018-11-08 08:41] LABS: ALBUMIN 3.2 g/dl (3.4-5.0); BILIRUBIN,TOTAL 0.4 mg/dL (0.2-1); BLOOD UREA NITROGEN 10.8 mg/dL (7-18); CALCIUM 9.1 mg/dL (8.5-10.1); CREATININE 0.7 mg/dL (0.55-1.3); POTASSIUM 3.7 mmol/L (3.5-5.1); TOT PROT 7.9 g/dl (6.4-8.2)
[2018-11-08] MEDS ORDERED: PT OWN MED DRAWER 7, Y5N ONE ×2 (09:37→23:04)
[2018-11-08] MEDS: cloBAZam 10 MG TABLET GT SCH ×2 (09:40→23:06)
[2018-11-08] MEDS: BACLOFEN 10 MG TABLET (FP) GT SCH ×2 (09:41→23:07)
[2018-11-08] MEDS: ENOXAPARIN NA (PORCINE) 40 MG/0.4 ML DISP.SYRIN SQ SCH (09:41)
[2018-11-08] MEDS: RANITIDINE HCL 150 MG TABLET (FP) PO SCH ×2 (09:41→23:06)
[2018-11-08] MEDS: lamoTRIgine 100 MG TABLET (FP) PO SCH ×2 (09:42→23:20)
--- NOTE | 2018-11-08 09:42 | PN ---
Progress Note, Physician History of Present Illness: patient improving stable - Current Medication List Current Medications: Active Medications Acyclovir (Zovirax -) 400 mg GT BID [facility] Last Admin: 11/07/18 21:34 Dose: 400 mg Albuterol/Ipratropium (Duoneb -) 1 amp NEB RQID [facility] Last Admin: 11/08/18 07:35 Dose: 1 amp Baclofen (Lioresal -) 10 mg GT BID [facility] Last Admin: 11/07/18 21:35 Dose: 10 mg Clobazam (Onfi -) 10 mg GT HS [facility] Last Admin: 11/07/18 21:32 Dose: 10 mg Clobazam (Onfi -) 5 mg GT DAILY [facility] Last Admin: 11/07/18 10:50 Dose: 5 mg Clonazepam (Klonopin -) 1.5 mg GT TID [facility] Last Admin: 11/08/18 06:30 Dose: 1.5 mg Enoxaparin Sodium (Lovenox -) 40 mg SQ DAILY [facility] Last Admin: 11/07/18 10:49 Dose: 40 mg Piperacillin Sod/Tazobactam (Sod 3.375 gm/ Dextrose) 50 mls @ 100 mls/hr IVPB Q8H-IV [facility]; Protocol Last Admin: 11/08/18 01:18 Dose: 100 mls/hr Lactobacillus Acidophilus (Bacid -) 1 tab PO HS [facility] Last Admin: 11/07/18 21:32 Dose: 1 tab Lamotrigine (Lamictal -) 200 mg PO BID [facility] Last Admin: 11/07/18 21:33 Dose: 200 mg Magnesium Hydroxide (Milk Of Magnesia -) 20 ml GT BID [facility] Last Admin: 11/07/18 21:34 Dose: 20 ml Mometasone Furoate (Asmanex 220mcg -) 1 puff IH HS [facility] Last Admin: 11/07/18 21:40 Dose: Not Given Phenobarbital (Phenobarbital Liquid -) 48 mg PO BID [facility] Last Admin: 11/07/18 21:35 Dose: 48 mg Ranitidine HCl (Zantac -) 75 mg PO BID [facility] Last Admin: 11/07/18 21:32 Dose: 75 mg - Objective Vital Signs: Vital Signs Temperature 98.6 F 11/08/18 05:44 Pulse Rate 85 11/08/18 05:44 Respiratory Rate 20 11/08/18 05:44 Blood Pressure 107/59 L 11/08/18 05:44 O2 Sat by Pulse Oximetry (%) 96 11/07/18 21:00 Constitutional: Yes: No Distress, Calm Cardiovascular: Yes: S1, S2 Respiratory: Yes: Regular, Poor Air Entry, Other (on face mask) Gastrointestinal: Yes: Normal Bowel Sounds, Soft Musculoskeletal: Yes: WNL Extremities: Yes: WNL Neurological: Yes: Alert, Other Psychiatric: Yes: Other Labs: CBC, BMP 11/08/18 06:44 11/08/18 06:44 INR, PTT INR 1.16 (0.83-1.09) H 11/05/18 06:10 Assessment/Plan 3 year old man with a history of profound mental retardation, CP, epilepsy, chronic hypoxic respiratory failure, asthma, Herpes encephalitis, left hip hemarthrosis, dysphagia s/p PEG, chronic constipation, GERD who presented to the ED from [facility] with respiratory distress, chest congestion, non-productive cough, and hypoxia. Sepsis/Acute on chronic hypoxic respiratory failure secondary to aspiration pna and asthma Transaminitis Profound mental retardation Cerebral palsy Epilepsy Hx Herpes encephalitis GERD Dysphagia s/p PEG Chronic constipation plan continue abx resp support asp precautions rest as per the team
[2018-11-08] MEDS: ACYCLOVIR 400 MG TABLET GT SCH ×2 (09:43→23:19)
[2018-11-08] MEDS: MAGNESIUM HYDROX 2400MG/30ML ORAL SUSPENSION 30 ML CUP GT SCH ×2 (09:43→23:08)
[2018-11-08] MEDS: PHENobarbital 20 MG/5 ML UNIT-DOSE CUP PO SCH ×2 (09:45→23:08)
--- NOTE | 2018-11-08 13:48 | PN ---
Progress Note, Physician History of Present Illness: pulmonary comfortable,-resp distress,less congestion - Current Medication List Current Medications: Active Medications Acyclovir (Zovirax -) 400 mg GT BID [facility] Last Admin: 11/08/18 09:43 Dose: 400 mg Albuterol/Ipratropium (Duoneb -) 1 amp NEB RQID [facility] Last Admin: 11/08/18 11:35 Dose: 1 amp Baclofen (Lioresal -) 10 mg GT BID [facility] Last Admin: 11/08/18 09:41 Dose: 10 mg Clobazam (Onfi -) 10 mg GT HS [facility] Last Admin: 11/07/18 21:32 Dose: 10 mg Clobazam (Onfi -) 5 mg GT DAILY [facility] Last Admin: 11/08/18 09:40 Dose: 5 mg Clonazepam (Klonopin -) 1.5 mg GT TID [facility] Last Admin: 11/08/18 06:30 Dose: 1.5 mg Enoxaparin Sodium (Lovenox -) 40 mg SQ DAILY [facility] Last Admin: 11/08/18 09:41 Dose: 40 mg Piperacillin Sod/Tazobactam (Sod 3.375 gm/ Dextrose) 50 mls @ 100 mls/hr IVPB Q8H-IV [facility]; Protocol Last Admin: 11/08/18 09:42 Dose: 100 mls/hr Lactobacillus Acidophilus (Bacid -) 1 tab PO HS [facility] Last Admin: 11/07/18 21:32 Dose: 1 tab Lamotrigine (Lamictal -) 200 mg PO BID [facility] Last Admin: 11/08/18 09:42 Dose: 200 mg Magnesium Hydroxide (Milk Of Magnesia -) 20 ml GT BID [facility] Last Admin: 11/08/18 09:43 Dose: 20 ml Mometasone Furoate (Asmanex 220mcg -) 1 puff [facility] Last Admin: 11/07/18 21:40 Dose: Not Given Phenobarbital (Phenobarbital Liquid -) 48 mg PO BID [facility] Last Admin: 11/08/18 09:45 Dose: 48 mg Ranitidine HCl (Zantac -) 75 mg PO BID [facility] Last Admin: 11/08/18 09:41 Dose: 75 mg - Objective Vital Signs: Vital Signs Temperature 98.6 F 11/08/18 05:44 Pulse Rate 85 11/08/18 05:44 Respiratory Rate 20 11/08/18 05:44 Blood Pressure 107/59 L 11/08/18 05:44 O2 Sat by Pulse Oximetry (%) 96 11/08/18 09:00 Constitutional: Yes: Calm, Thin Eyes: Yes: WNL HENT: Yes: WNL Neck: Yes: WNL Cardiovascular: Yes: Regular Rate and Rhythm, S1, S2 Respiratory: Yes: Rhonchi (few rhonchi) Gastrointestinal: Yes: Normal Bowel Sounds, Soft Extremities: Yes: Shortened, Other (contracted) Edema: No Labs: CBC, BMP 11/08/18 06:44 11/08/18 06:44 INR, PTT INR 1.16 (0.83-1.09) H 11/05/18 06:10 Problem List - Problems (1) Acute hypoxemic respiratory failure Code(s): J96.01 - ACUTE RESPIRATORY FAILURE WITH HYPOXIA (2) Aspiration pneumonitis Code(s): J69.0 - PNEUMONITIS DUE TO INHALATION OF FOOD AND VOMIT (3) Fever Code(s): R50.9 - FEVER, UNSPECIFIED (4) Pneumonia Code(s): J18.9 - PNEUMONIA, UNSPECIFIED ORGANISM (5) Respiratory distress Code(s): R06.03 - ACUTE RESPIRATORY DISTRESS (6) Asthma Code(s): J45.909 - UNSPECIFIED ASTHMA, UNCOMPLICATED (7) Epilepsy Code(s): G40.909 - EPILEPSY, UNSP, NOT INTRACTABLE, WITHOUT STATUS EPILEPTICUS (8) PEG (percutaneous endoscopic gastrostomy) status Code(s): Z93.1 - GASTROSTOMY STATUS (9) Profound mental retardation Code(s): F73 - PROFOUND INTELLECTUAL DISABILITIES (10) Respiratory failure Code(s): J96.90 - RESPIRATORY FAILURE, UNSP, UNSP W HYPOXIA OR HYPERCAPNIA Qualifiers: Chronicity: acute Respiratory failure complication: hypoxia Qualified Code(s): J96.01 - Acute respiratory failure with hypoxia Assessment/Plan MP ACUTE HYPOXEMIC RESPIRATORY FAILURE improving PNEUMONIA clinically improving OPACIFICATION LEFT HEMITHORAX IMPROVING SEVERE MENTAL RETARDATION CEREBRAL PALSY FUNCTIONAL QUADRAPLEGIA SEIZURES ELEVATED LFTS PLAN ABX PER ID INHALED BRONCHODILATORS O2 TO MAINTAIN O2 SAT >90% NIPPV NEEDED ORAL/PHARYNGEAL SUCTIONING ASPIRATION PRECAUTIONS MONITOR LFTS DR VILLALTA Problem List - Problems (1) Acute hypoxemic respiratory failure Code(s): J96.01 - ACUTE RESPIRATORY FAILURE WITH HYPOXIA (2) Aspiration pneumonitis Code(s): J69.0 - PNEUMONITIS DUE TO INHALATION OF FOOD AND VOMIT (3) Fever Code(s): R50.9 - FEVER, UNSPECIFIED (4) Pneumonia Code(s): J18.9 - PNEUMONIA, UNSPECIFIED ORGANISM (5) Respiratory distress Code(s): R06.03 - ACUTE RESPIRATORY DISTRESS (6) Asthma Code(s): J45.909 - UNSPECIFIED ASTHMA, UNCOMPLICATED (7) Epilepsy Code(s): G40.909 - EPILEPSY, UNSP, NOT INTRACTABLE, WITHOUT STATUS EPILEPTICUS (8) PEG (percutaneous endoscopic gastrostomy) status Code(s): Z93.1 - GASTROSTOMY STATUS (9) Profound mental retardation Code(s): F73 - PROFOUND INTELLECTUAL DISABILITIES (10) Respiratory failure Code(s): J96.90 - RESPIRATORY FAILURE, UNSP, UNSP W HYPOXIA OR HYPERCAPNIA Qualifiers: Chronicity: acute Respiratory failure complication: hypoxia Qualified Code(s): J96.01 - Acute respiratory failure with hypoxia
--- NOTE | 2018-11-08 17:32 | PN ---
Teaching Attending Note Name of Resident: Haley James ATTENDING PHYSICIAN STATEMENT I saw and evaluated the patient. I reviewed the resident's note and discussed the case with the resident. I agree with the resident's findings and plan as documented. SUBJECTIVE: No events over night OBJECTIVE: NAD. awake CV: RRR Lungs: b/l rales Ext : no edema, muscular atrophy Abd: PEG in , no tenderness, NL BS . ND. ASSESSMENT AND PLAN: 22 y/o young man with h/o herpetic meningioencephalitis, MR, seizures , recurrent aspiration PNA ,left hip hemarthrosis, dysphagia, PEG, chronic constipation, GERD who is being treated fro b/l PNA 1- Acute on chronic hypoxic resp failure 2/2 b/l PNA : possibly aspiration - cont zosyn - cont Nebs 2- H/o Seizures : cont meds 3- Transaminitis: chronic , improving . 4- h/o herpetic encephalitis: cont acyclovir Lovenox for DVT PX
--- NOTE | 2018-11-08 17:42 | PN ---
Physical Exam: SUBJECTIVE: 23 y/o M non-verbal resident of [facility], with a PMH of profound intellectual disabilities, cerebral palsy, epilepsy, left hip hemiarthosis, hip contracture, chronic constipation, chronic dysphagia, asthma, GERD, herpes encephalitis, with multiple recent admissions for PNA, presents after experiencing respiratory distress, w/ a pulse oxi of 78%, non-productive cough, congestion, that persisted despite nebulizers and suctioning. Overnight events: pt retaining urine so esqueda catheter was placed. pt was on a breathing mask at 40% O2. Twitching at night of muscles and eyes but after speaking with Concan it is notable to be normal for him and its not a seizure for him. OBJECTIVE: Vital Signs Period Temp Pulse Resp BP Sys/Linares Pulse Ox Last 24 Hr 97.8 F-99.3 F 66-92 18-20 105-110/50-65 96-96 GENERAL: The patient is awake and on face mask at 40% O2 with at 98 SPaO2. Lying in a contracted position which is consistent with the patients baseline body habitus. EYES: sclera anicteric, conjunctiva clear. No ptosis. NECK: supple. LUNGS: Breath sounds difficult to appreciate on exam due to patient body habitus. HEART: Regular rate and rhythm, S1, S2 without any murmurs, rubs or gallops. ABDOMEN: Soft, nontender, nondistended, normoactive bowel sounds, tough to assess for guarding due to patient being non verbal and bc of pt body habitus. PEG tube appreciated on exam no erythema or drainage of bodily fluids. rebound, no hepatosplenomegaly, no masses. EXTREMITIES: warm, well-perfused, no edema. Laboratory Results - last 24 hr Active Medications Acyclovir (Zovirax -) 400 mg GT BID [facility] Last Admin: 11/08/18 09:43 Dose: 400 mg Albuterol/Ipratropium (Duoneb -) 1 amp NEB RQID [facility] Last Admin: 11/08/18 15:49 Dose: 1 amp Baclofen (Lioresal -) 10 mg GT BID [facility] Last Admin: 11/08/18 09:41 Dose: 10 mg Clobazam (Onfi -) 10 mg GT HS [facility] Last Admin: 11/07/18 21:32 Dose: 10 mg Clobazam (Onfi -) 5 mg GT DAILY [facility] Last Admin: 11/08/18 09:40 Dose: 5 mg Clonazepam (Klonopin -) 1.5 mg GT TID [facility] Last Admin: 11/08/18 14:31 Dose: 1.5 mg Enoxaparin Sodium (Lovenox -) 40 mg SQ DAILY [facility] Last Admin: 11/08/18 09:41 Dose: 40 mg Piperacillin Sod/Tazobactam (Sod 3.375 gm/ Dextrose) 50 mls @ 100 mls/hr IVPB Q8H-IV [facility]; Protocol Last Admin: 11/08/18 09:42 Dose: 100 mls/hr Lactobacillus Acidophilus (Bacid -) 1 tab PO HS [facility] Last Admin: 11/07/18 21:32 Dose: 1 tab Lamotrigine (Lamictal -) 200 mg PO BID [facility] Last Admin: 11/08/18 09:42 Dose: 200 mg Magnesium Hydroxide (Milk Of Magnesia -) 20 ml GT BID [facility] Last Admin: 11/08/18 09:43 Dose: 20 ml Mometasone Furoate (Asmanex 220mcg -) 1 puff IH [facility] Last Admin: 11/07/18 21:40 Dose: Not Given Phenobarbital (Phenobarbital Liquid -) 48 mg PO BID [facility] Last Admin: 11/08/18 09:45 Dose: 48 mg Ranitidine HCl (Zantac -) 75 mg PO BID [facility] Last Admin: 11/08/18 09:41 Dose: 75 mg Labs: CBC, BMP 11/08/18 06:44 11/08/18 06:44 ASSESSMENT/PLAN: 23 y/o M from [facility] [place] with PMH of intellectual disabilities, Cerebral palsy , epilepsy, left hip hemiarthosis, hip contracture, chronic constipation, chronic dysphagia, asthma, GERD, herpes encephalitis, presented with respiratory distress, w/ a pulse oxi of 78%, non-productive cough, congestion #Acute hypoxic respiratory distress likely 2/2 Aspiration pneumonia CXR showed increased markings in the right hemithorax. - h/o recurrent aspiration PNA. - Pulm consult (Dr. Matute) appreciated and recommends to continue the inhaled bronchodilators. Continue to monitor and make sure SaO2 >90%. NIPPV as needed. Oral/pharyngeal suctioning and aspiration precautions. Continue monitoring LFT' s. LFT's have since then downtrended to (AST,ALT) 49,79 respectively. - ALP has downtrended as well to 383. - ID consult (Dr. Douglas) appreciated recs: continue w zosyn 3.375 (11/05 day 4) for PNA. - pt on tele rita continue to monitor the SaO2. #Epilepsy - [facility] and [facility] verified the meds on file are correct and that his last seizure was in 2016 and at his baseline he has a twitching body habitus and sometimes his eyes twitch. #Chronic constipation - resume home bowel regimen which is MgOH 20ml GT BID as well as fiber-stat 15gm GT HS. #Asthma - resume home nebulizers/ inhalers #FEN no fluids indicated monitoring electrolytes continue tube feeding as per home 1 audie 45mL/hr PROMOTE bag. #Prophylaxis DVT: Lovenox 40mg SQ daily GI: Ranitidine 150mg daily Dispo- tele for continuous SaO2 monitoring to ensure >90%. Problem List - Problems (1) Aspiration pneumonitis Code(s): J69.0 - PNEUMONITIS DUE TO INHALATION OF FOOD AND VOMIT Visit type - Emergency Visit Emergency Visit: Yes ED Registration Date: 11/04/18 Care time: The patient presented to the Emergency Department on the above date and was hospitalized for further evaluation of their emergent condition. - New Patient This patient is new to me today: Yes Date on this admission: 11/04/18 - Critical Care Critical Care patient: No - Discharge Referral Referred to [facility] Med P.C.: No
[2018-11-08] MEDS: LACTOBACILLUS ACIDOPHILUS 1 TABLET PO SCH (23:07)
[2018-11-08] MEDS: MOMETASONE FUROATE 220 MCG/IH INHALER IH SCH (23:15)
[2018-11-09] MEDS ORDERED: DEXTROSE 5%-WATER - 50 ML IVPB ONE ×3 (02:08→18:40)
[2018-11-09] MEDS ORDERED: PIPERACILLIN/TAZOBACTAM 3.375 GM VIAL IVPB ONE ×3 (02:08→18:40)
[2018-11-09] MEDS: PIPERACILLIN/TAZOB 3.375 GM 3.375 GM in DEXTROSE 5%-WATER - 50 ML IVPB SCH ×3 (02:26→18:57)
[2018-11-09] MEDS: clonazePAM 0.5 MG TABLET GT SCH ×3 (07:08→22:18)
[2018-11-09] MEDS: ALBUTEROL SO4 2.5/IPRATROPIUM 0.5 INH SOL 3 ML VIAL.NEB. NEB SCH ×4 (07:35→20:11)
[2018-11-09 08:14] LABS: BASO % 0.3 % (0-2.0); EOS % 2.9 % (0-4.5); HEMATOCRIT 36.3 % (35.4-49); HEMOGLOBIN 12.3 GM/dL (11.7-16.9); LYMPH % 25.5 % (8-40); MCH 33.1 pg (25.7-33.7); MEAN CELL VOLUME 97.4 fl (80-96); MEAN PLT VOLUME 8.5 fl (7.5-11.1); MONO % 8.3 % (3.8-10.2); PLATELET COUNT 289 K/MM3 (134-434); RBC 3.73 M/mm3 (4.00-5.60); RDW 15.3 % (11.9-15.9); WHITE BLOOD COUNT 7.3 K/mm3 (4.0-10.0)
[2018-11-09] MEDS ORDERED: PT OWN MED DRAWER 7, Y5N ONE ×3 (08:15→21:16)
[2018-11-09 08:41] LABS: ALBUMIN 3.1 g/dl (3.4-5.0); BILIRUBIN,TOTAL 0.2 mg/dL (0.2-1); BLOOD UREA NITROGEN 8.8 mg/dL (7-18); CALCIUM 8.8 mg/dL (8.5-10.1); CREATININE 0.7 mg/dL (0.55-1.3); POTASSIUM 3.9 mmol/L (3.5-5.1); TOT PROT 7.6 g/dl (6.4-8.2)
[2018-11-09] MEDS: ENOXAPARIN NA (PORCINE) 40 MG/0.4 ML DISP.SYRIN SQ SCH (09:46)
[2018-11-09] MEDS: BACLOFEN 10 MG TABLET (FP) GT SCH ×2 (09:46→22:17)
[2018-11-09] MEDS: cloBAZam 10 MG TABLET GT SCH ×3 (09:47→22:19)
[2018-11-09] MEDS: PHENobarbital 20 MG/5 ML UNIT-DOSE CUP PO SCH ×2 (09:47→22:20)
[2018-11-09] MEDS: MAGNESIUM HYDROX 2400MG/30ML ORAL SUSPENSION 30 ML CUP GT SCH ×2 (09:48→22:19)
[2018-11-09] MEDS: RANITIDINE HCL 150 MG TABLET (FP) PO SCH ×2 (09:49→22:19)
[2018-11-09] MEDS: lamoTRIgine 100 MG TABLET (FP) PO SCH ×2 (09:49→22:18)
[2018-11-09] MEDS: ACYCLOVIR 400 MG TABLET GT SCH ×2 (09:50→22:21)
--- NOTE | 2018-11-09 12:02 | PN ---
Progress Note (short form) - Note Progress Note: PULMONARY Pt nonverbal. No fevers recorded. Vital Signs Period Temp Pulse Resp BP Sys/Linares Pulse Ox Last 24 Hr 98.0 F-98.9 F 57-77 20-20 101-108/37-54 96-98 Gen: breathing nonlabored Heart: RRR Lung: decreased breath sounds at the bases Abd: soft, nontender Ext: no edema, contracted CBC, BMP 11/09/18 07:05 11/09/18 07:05 Active Medications Acyclovir (Zovirax -) 400 mg GT BID [facility] Last Admin: 11/09/18 09:50 Dose: 400 mg Albuterol/Ipratropium (Duoneb -) 1 amp NEB RQID [facility] Last Admin: 11/09/18 07:35 Dose: 1 amp Baclofen (Lioresal -) 10 mg GT BID [facility] Last Admin: 11/09/18 09:46 Dose: 10 mg Clobazam (Onfi -) 10 mg GT HS [facility] Last Admin: 11/09/18 09:47 Dose: 10 mg Clobazam (Onfi -) 5 mg GT DAILY [facility] Last Admin: 11/09/18 09:47 Dose: 5 mg Clonazepam (Klonopin -) 1.5 mg GT TID [facility] Last Admin: 11/09/18 07:08 Dose: 1.5 mg Enoxaparin Sodium (Lovenox -) 40 mg SQ DAILY [facility] Last Admin: 11/09/18 09:46 Dose: 40 mg Piperacillin Sod/Tazobactam (Sod 3.375 gm/ Dextrose) 50 mls @ 100 mls/hr IVPB Q8H-IV [facility]; Protocol Last Admin: 11/09/18 09:48 Dose: 100 mls/hr Lactobacillus Acidophilus (Bacid -) 1 tab PO HS [facility] Last Admin: 11/08/18 23:07 Dose: 1 tab Lamotrigine (Lamictal -) 200 mg PO BID [facility] Last Admin: 11/09/18 09:49 Dose: 200 mg Magnesium Hydroxide (Milk Of Magnesia -) 20 ml GT BID [facility] Last Admin: 11/09/18 09:48 Dose: 20 ml Mometasone Furoate (Asmanex 220mcg -) 1 puff IH [facility] Last Admin: 11/08/18 23:15 Dose: Not Given Phenobarbital (Phenobarbital Liquid -) 48 mg PO BID [facility] Last Admin: 11/09/18 09:47 Dose: 48 mg Ranitidine HCl (Zantac -) 75 mg PO BID [facility] Last Admin: 11/09/18 09:49 Dose: 75 mg A/P Acute Hypoxic Respiratory Failure Pneumonia Severe Mental Retardation Functional Quadriplegia Seizure Disorder - continue antibiotics - O2 to keep SpO2 >90% - inhaled bronchodilators - chest PT - aspiration precautions - DVT prophylaxis
--- NOTE | 2018-11-09 13:30 | PN ---
Progress Note, Physician History of Present Illness: continues to improve still requiring mask mentally looks better - Current Medication List Current Medications: Active Medications Acyclovir (Zovirax -) 400 mg GT BID [facility] Last Admin: 11/09/18 09:50 Dose: 400 mg Albuterol/Ipratropium (Duoneb -) 1 amp NEB RQID [facility] Last Admin: 11/09/18 07:35 Dose: 1 amp Baclofen (Lioresal -) 10 mg GT BID [facility] Last Admin: 11/09/18 09:46 Dose: 10 mg Clobazam (Onfi -) 10 mg GT HS [facility] Last Admin: 11/09/18 09:47 Dose: 10 mg Clobazam (Onfi -) 5 mg GT DAILY [facility] Last Admin: 11/09/18 09:47 Dose: 5 mg Clonazepam (Klonopin -) 1.5 mg GT TID [facility] Last Admin: 11/09/18 07:08 Dose: 1.5 mg Enoxaparin Sodium (Lovenox -) 40 mg SQ DAILY [facility] Last Admin: 11/09/18 09:46 Dose: 40 mg Piperacillin Sod/Tazobactam (Sod 3.375 gm/ Dextrose) 50 mls @ 100 mls/hr IVPB Q8H-IV [facility]; Protocol Last Admin: 11/09/18 09:48 Dose: 100 mls/hr Lactobacillus Acidophilus (Bacid -) 1 tab PO HS [facility] Last Admin: 11/08/18 23:07 Dose: 1 tab Lamotrigine (Lamictal -) 200 mg PO BID [facility] Last Admin: 11/09/18 09:49 Dose: 200 mg Magnesium Hydroxide (Milk Of Magnesia -) 20 ml GT BID [facility] Last Admin: 11/09/18 09:48 Dose: 20 ml Mometasone Furoate (Asmanex 220mcg -) 1 puff IH HS [facility] Last Admin: 11/08/18 23:15 Dose: Not Given Phenobarbital (Phenobarbital Liquid -) 48 mg PO BID [facility] Last Admin: 11/09/18 09:47 Dose: 48 mg Ranitidine HCl (Zantac -) 75 mg PO BID [facility] Last Admin: 11/09/18 09:49 Dose: 75 mg - Objective Vital Signs: Vital Signs Temperature 98.1 F 11/09/18 07:10 Pulse Rate 58 L 11/09/18 07:10 Respiratory Rate 20 11/09/18 09:00 Blood Pressure 104/45 L 11/09/18 07:10 O2 Sat by Pulse Oximetry (%) 98 11/09/18 09:00 Constitutional: Yes: No Distress, Calm Cardiovascular: Yes: Regular Rate and Rhythm Respiratory: Yes: Poor Air Entry, Other (on mask) Gastrointestinal: Yes: Normal Bowel Sounds, Soft Musculoskeletal: Yes: WNL Extremities: Yes: Other Neurological: Yes: Alert, Other Psychiatric: Yes: Other Labs: CBC, BMP 11/09/18 07:05 11/09/18 07:05 INR, PTT INR 1.16 (0.83-1.09) H 11/05/18 06:10 Assessment/Plan 3 year old man with a history of profound mental retardation, CP, epilepsy, chronic hypoxic respiratory failure, asthma, Herpes encephalitis, left hip hemarthrosis, dysphagia s/p PEG, chronic constipation, GERD who presented to the ED from [facility] with respiratory distress, chest congestion, non-productive cough, and hypoxia. Sepsis/Acute on chronic hypoxic respiratory failure secondary to aspiration pna and asthma Transaminitis Profound mental retardation Cerebral palsy Epilepsy Hx Herpes encephalitis GERD Dysphagia s/p PEG Chronic constipation plan continue abx resp support nutrition rest as per the team
--- NOTE | 2018-11-09 17:50 | PN ---
Teaching Attending Note Name of Resident: Tonny Kennedy ATTENDING PHYSICIAN STATEMENT I saw and evaluated the patient. I reviewed the resident's note and discussed the case with the resident. I agree with the resident's findings and plan as documented. SUBJECTIVE: No events over night OBJECTIVE: NAD. awake CV: RRR Lungs: b/l rales Ext : no edema, muscular atrophy Abd: PEG in , no tenderness, NL BS . ND. ASSESSMENT AND PLAN: 22 y/o young man with h/o herpetic meningioencephalitis, MR, seizures , recurrent aspiration PNA ,left hip hemarthrosis, dysphagia, PEG, chronic constipation, GERD who is being treated for b/l PNA 1- Acute on chronic hypoxic resp failure 2/2 b/l PNA : possibly aspiration - cont zosyn, for one more days. switch to Augmentin tomorrow - cont Nebs - could taper him from Venti mask to 4 L via NC ( Sats 94-96%). - team spoke to [place], patient has been on O2 on and off in past. 2- H/o Seizures: cont meds. 3- Transaminitis: chronic , improving. 4- h/o herpetic encephalitis: cont acyclovir Lovenox for DVT PX Will dc to [place] tomorrow , on O2, and PO abx
[2018-11-09] MEDS ORDERED: SODIUM CHLORIDE 1,000 ML IV SCH (18:00)
--- NOTE | 2018-11-09 18:30 | PN ---
Physical Exam: SUBJECTIVE: 23 y/o M from [facility] [place] with PMH of intellectual disabilities, CP, epilepsy, left hip hemiarthrosis, hip contracture, chronic constipation, chronic dysphagia , asthma, GERD, Herpes enchephalitis on acyclovir, presented w respiratory distress w a SPaO2 of 78%, nonproductive cough and congestion. Overnight events: suctioned white sputum and pt was saturating at 98% on 40% O2 breathing mask which has since been titrated down to 4L [place] O2. Lane catheter still in place w 200 cc overnight of urine. VS stable. 1 BM medium soft stool. OBJECTIVE: Vital Signs Period Temp Pulse Resp BP Sys/Linares Pulse Ox Last 24 Hr 98.0 F-98.9 F 48-77 20-20 82-105/39-54 96-98 GENERAL: The patient is AAO X 1 being that hes only awake in no acute distress, occasionally twitching with a breathing mask on at 40% O2 however currently pt switched to 4LO2 [place] NECK: supple. LUNGS: Breath sounds difficult to assess but slightly decreased, with rales in RML and RLL, no wheezes, no crackles, or stridor. HEART: Regular rate and rhythm, S1, S2 without murmur, rub or gallop. ABDOMEN: Soft, nontender, nondistended, hypoactive bowel sounds, no guarding, no rebound, no masses noted. EXTREMITIES: 2+ pulses, warm, well-perfused, no edema with foot foam on b/l feet no foot ulcers appreciated on exam. Laboratory Results - last 24 hr CBC, BMP 11/09/18 07:05 11/09/18 07:05 Active Medications Current Medications Acyclovir (Zovirax -) 400 mg GT BID [facility] Last Admin: 11/09/18 09:50 Dose: 400 mg Albuterol/Ipratropium (Duoneb -) 1 amp NEB RQID [facility] Last Admin: 11/09/18 15:31 Dose: 1 amp Baclofen (Lioresal -) 10 mg GT BID [facility] Last Admin: 11/09/18 09:46 Dose: 10 mg Clobazam (Onfi -) 10 mg GT HS [facility] Last Admin: 11/09/18 09:47 Dose: 10 mg Clobazam (Onfi -) 5 mg GT DAILY [facility] Last Admin: 11/09/18 09:47 Dose: 5 mg Clonazepam (Klonopin -) 1.5 mg GT TID [facility] Last Admin: 11/09/18 14:43 Dose: 1.5 mg Enoxaparin Sodium (Lovenox -) 40 mg SQ DAILY [facility] Last Admin: 11/09/18 09:46 Dose: 40 mg Piperacillin Sod/Tazobactam (Sod 3.375 gm/ Dextrose) 50 mls @ 100 mls/hr IVPB Q8H-IV [facility]; Protocol Last Admin: 11/09/18 09:48 Dose: 100 mls/hr Sodium Chloride (Normal Saline -) 1,000 mls @ 50 mls/hr IV ASDIR [facility] Stop: 11/10/18 17:50 Lactobacillus Acidophilus (Bacid -) 1 tab PO [facility] Last Admin: 11/08/18 23:07 Dose: 1 tab Lamotrigine (Lamictal -) 200 mg PO BID [facility] Last Admin: 11/09/18 09:49 Dose: 200 mg Magnesium Hydroxide (Milk Of Magnesia -) 20 ml GT BID [facility] Last Admin: 11/09/18 09:48 Dose: 20 ml Mometasone Furoate (Asmanex 220mcg -) 1 puff IH [facility] Last Admin: 11/08/18 23:15 Dose: Not Given Phenobarbital (Phenobarbital Liquid -) 48 mg PO BID [facility] Last Admin: 11/09/18 09:47 Dose: 48 mg Ranitidine HCl (Zantac -) 75 mg PO BID [facility] Last Admin: 11/09/18 09:49 Dose: 75 mg ASSESSMENT/PLAN: 23 y/o M nonverbal [facility] pt presented w respiratory distress and an SaO2 of 78% with nonproductive cough and congestion. #Acute hypoxic respiratory distress 2/2 Aspiration PNA - we have titrated down the O2 to 4L [place] and we will try to continue to get this titrated down even further if pt tolerates. - Pulm consult Dr. Schmid- continue abx, maintain SaO2>90%, continue inhaled bronchodilators, Chest PT, aspiration precautions, DVT ppx. - Spoke to [place]en and found that pt had been on 3lO2 per [place] in past but not when pt was having the distress, only after the distress was he put on O2. - Appreciate ID recs (Dr. Douglas)- plan is to continue zosyn via PEG tube for one more day and then switch to augmentin [id number] for 5 days at [place]. - Plan is to d/c tm on a titrated down [place] O2. #ALP/transaminase elevation - these are chronic issues and both have downtrended to ALP- 341, AST,ALT 46, 66. #Epilepsy - continue w home meds for seizure phenobarb and lamictal. #Chronic constipation - resume home bowel regimens with MgOH as well as fiberstat. #Asthma - continue home nebulizers/ inhalers #Herpes encephalitis - continue acyclovir #FEN - No fluids indicated - monitoring lytes - continue tube feeding as per home 1 audie 45mL/hr PROMOTE bag Prophylaxis- DVT: Lovenox 40mg SQ daily GI: ranitidine 150mg daily Dispo- plan is to d/c tm once the O2 sat is tolerated and we can titrate down the current amount of O2 liters. Plan is to call Dr. Valentino before 2 pm to make sure he has a bed for Mr. Lanier. Problem List - Problems (1) Aspiration pneumonitis Code(s): J69.0 - PNEUMONITIS DUE TO INHALATION OF FOOD AND VOMIT Visit type - Emergency Visit Emergency Visit: No - New Patient This patient is new to me today: No - Critical Care Critical Care patient: No - Discharge Referral Referred to [facility] Med P.C.: No
[2018-11-09] MEDS: MOMETASONE FUROATE 220 MCG/IH INHALER IH SCH (22:15)
[2018-11-09] MEDS: LACTOBACILLUS ACIDOPHILUS 1 TABLET PO SCH (22:18)
[2018-11-10] MEDS: PIPERACILLIN/TAZOB 3.375 GM 3.375 GM in DEXTROSE 5%-WATER - 50 ML IVPB SCH ×3 (03:45→17:31)
[2018-11-10] MEDS ORDERED: PIPERACILLIN/TAZOBACTAM 3.375 GM VIAL IVPB ONE ×3 (03:48→16:30)
[2018-11-10] MEDS ORDERED: DEXTROSE 5%-WATER - 50 ML IVPB ONE ×3 (03:48→16:30)
[2018-11-10] MEDS: clonazePAM 0.5 MG TABLET GT SCH ×3 (06:47→22:40)
[2018-11-10 07:55] LABS: BASO % 0.9 % (0-2.0); EOS % 3.8 % (0-4.5); HEMATOCRIT 35.5 % (35.4-49); HEMOGLOBIN 11.9 GM/dL (11.7-16.9); LYMPH % 41.6 % (8-40); MCH 33.2 pg (25.7-33.7); MCHC 33.6 g/dl (32.0-35.9); MEAN PLT VOLUME 8.9 fl (7.5-11.1); MONO % 11.5 % (3.8-10.2); NEUT % 42.2 % (42.8-82.8); PLATELET COUNT 269 K/MM3 (134-434); RBC 3.59 M/mm3 (4.00-5.60); RDW 14.9 % (11.9-15.9); WHITE BLOOD COUNT 4.6 K/mm3 (4.0-10.0)
[2018-11-10 08:20] LABS: BILIRUBIN,TOTAL 0.5 mg/dL (0.2-1); BLOOD UREA NITROGEN 7.8 mg/dL (7-18); CALCIUM 8.6 mg/dL (8.5-10.1); CREATININE 0.6 mg/dL (0.55-1.3); POTASSIUM 3.8 mmol/L (3.5-5.1); TOT PROT 7.4 g/dl (6.4-8.2)
--- NOTE | 2018-11-10 08:42 | PN ---
Teaching Attending Note Name of Resident: Nash Kennedy ATTENDING PHYSICIAN STATEMENT I saw and evaluated the patient. I reviewed the resident's note and discussed the case with the resident. I agree with the resident's findings and plan as documented. SUBJECTIVE: Patient is comfortable, no fever or chills,no shortness of breath. OBJECTIVE: Vital Signs Temperature 97.8 F 11/10/18 07:00 Pulse Rate 48 L 11/10/18 07:00 Respiratory Rate 20 11/10/18 07:00 Blood Pressure 91/44 L 11/10/18 07:00 O2 Sat by Pulse Oximetry (%) 95 11/09/18 21:00 GENERAL: The patient is awake, non verbal, in no acute distress. HEAD: Normal with no signs of trauma. EYES: PERRL, extraocular movements intact, sclera anicteric, conjunctiva clear. ENT: Ears normal, oropharynx clear without exudates, moist mucous membranes. NECK: Trachea midline, full range of motion, supple. LUNGS: Breath sounds equal, CTABL, no wheezes, no crackles, no accessory muscle use. HEART: Regular rate and rhythm, S1, S2 without murmur, rub or gallop. ABDOMEN: Soft, NT, ND, normoactive bowel sounds, no guarding, no rebound, no hepatosplenomegaly, no masses. EXTREMITIES: 2+ pulses, warm, well-perfused, no edema. NEUROLOGICAL: Cranial nerves II through XII grossly intact. . PSYCH: non verbal SKIN: Warm, dry, normal turgor, no rashes or lesions noted CBCD WBC 7.3 K/mm3 (4.0-10.0) 11/09/18 07:05 RBC 3.73 M/mm3 (4.00-5.60) L 11/09/18 07:05 Hgb 12.3 GM/dL (11.7-16.9) 11/09/18 07:05 Hct 36.3 % (35.4-49) 11/09/18 07:05 MCV 97.4 fl (80-96) H 11/09/18 07:05 MCHC 34.0 g/dl (32.0-35.9) 11/09/18 07:05 RDW 15.3 % (11.9-15.9) 11/09/18 07:05 Plt Count 289 K/MM3 (134-434) 11/09/18 07:05 MPV 8.5 fl (7.5-11.1) 11/09/18 07:05 CMP Sodium 138 mmol/L (136-145) 11/10/18 07:00 Potassium 3.8 mmol/L (3.5-5.1) 11/10/18 07:00 Chloride 102 mmol/L (98-107) 11/10/18 07:00 Carbon Dioxide 32 mmol/L (21-32) 11/10/18 07:00 Anion Gap 4 MMOL/L (8-16) L 11/10/18 07:00 BUN 7.8 mg/dL (7-18) 11/10/18 07:00 Creatinine 0.6 mg/dL (0.55-1.3) 11/10/18 07:00 Random Glucose 92 mg/dL (74-106) 11/10/18 07:00 Calcium 8.6 mg/dL (8.5-10.1) 11/10/18 07:00 Total Bilirubin 0.5 mg/dL (0.2-1) 11/10/18 07:00 AST 37 U/L (15-37) 11/10/18 07:00 ALT 55 U/L (13-61) 11/10/18 07:00 Alkaline Phosphatase 290 U/L (45-117) H 11/10/18 07:00 Total Protein 7.4 g/dl (6.4-8.2) 11/10/18 07:00 Albumin 3.0 g/dl (3.4-5.0) L 11/10/18 07:00 CARDIAC ENZYMES Troponin I < 0.02 ng/ml (0.00-0.05) 11/04/18 13:21 ASSESSMENT AND PLAN: patient is a 22 y/o male with h/o herpetic meningioencephalitis, MR, seizures , recurrent aspiration PNA , left hip hemarthrosis, dysphagia, PEG, chronic constipation, GERD who is being treated for b/l PNA # Acute on chronic hypoxic resp failure due to having b/l PNA /aspiration: on IV zosyn continue , will switch to Augmentin tomorrow - cont Nebs, keep sat >94% on 4 L via [place] , Team spoke to [place], patient has been on O2 on and off in past. # H/o Seizures: cont meds. # Transaminitis: chronic , improved. # h/o herpetic encephalitis: cont acyclovir DVT PX: Lovenox Will dc patient to [place] once stable.
[2018-11-10] MEDS ORDERED: PT OWN MED DRAWER 7, Y5N ONE ×2 (09:04→22:45)
--- NOTE | 2018-11-10 09:32 | PN ---
Progress Note, Physician History of Present Illness: patient stable looks calmer - Current Medication List Current Medications: Active Medications Acyclovir (Zovirax -) 400 mg GT BID [facility] Last Admin: 11/09/18 22:21 Dose: 400 mg Baclofen (Lioresal -) 10 mg GT BID [facility] Last Admin: 11/09/18 22:17 Dose: 10 mg Clobazam (Onfi -) 10 mg GT HS [facility] Last Admin: 11/09/18 22:19 Dose: 10 mg Clobazam (Onfi -) 5 mg GT DAILY [facility] Last Admin: 11/09/18 09:47 Dose: 5 mg Clonazepam (Klonopin -) 1.5 mg GT TID [facility] Last Admin: 11/10/18 06:47 Dose: 1.5 mg Enoxaparin Sodium (Lovenox -) 40 mg SQ DAILY [facility] Last Admin: 11/09/18 09:46 Dose: 40 mg Piperacillin Sod/Tazobactam (Sod 3.375 gm/ Dextrose) 50 mls @ 100 mls/hr IVPB Q8H-IV [facility]; Protocol Last Admin: 11/10/18 03:45 Dose: 100 mls/hr Sodium Chloride (Normal Saline -) 1,000 mls @ 50 mls/hr IV ASDIR [facility] Stop: 11/10/18 17:50 Last Admin: 11/09/18 18:59 Dose: 50 mls/hr Lactobacillus Acidophilus (Bacid -) 1 tab PO HS [facility] Last Admin: 11/09/18 22:18 Dose: 1 tab Lamotrigine (Lamictal -) 200 mg PO BID [facility] Last Admin: 11/09/18 22:18 Dose: 200 mg Magnesium Hydroxide (Milk Of Magnesia -) 20 ml GT BID [facility] Last Admin: 11/09/18 22:19 Dose: 20 ml Mometasone Furoate (Asmanex 220mcg -) 1 puff IH [facility] Last Admin: 11/09/18 22:15 Dose: Not Given Phenobarbital (Phenobarbital Liquid -) 48 mg PO BID [facility] Last Admin: 11/09/18 22:20 Dose: 48 mg Ranitidine HCl (Zantac -) 75 mg PO BID [facility] Last Admin: 11/09/18 22:19 Dose: 75 mg - Objective Vital Signs: Vital Signs Temperature 97.8 F 11/10/18 07:00 Pulse Rate 48 L 11/10/18 07:00 Respiratory Rate 20 11/10/18 08:49 Blood Pressure 91/44 L 11/10/18 07:00 O2 Sat by Pulse Oximetry (%) 95 11/10/18 08:49 Constitutional: Yes: No Distress, Calm Cardiovascular: Yes: Regular Rate and Rhythm Respiratory: Yes: Regular, On Nasal O2, Other Gastrointestinal: Yes: Normal Bowel Sounds, Soft, Other Musculoskeletal: Yes: WNL Extremities: Yes: WNL Neurological: Yes: Alert Psychiatric: Yes: Alert Labs: CBC, BMP 11/10/18 07:00 11/10/18 07:00 INR, PTT INR 1.16 (0.83-1.09) H 11/05/18 06:10 Assessment/Plan 3 year old man with a history of profound mental retardation, CP, epilepsy, chronic hypoxic respiratory failure, asthma, Herpes encephalitis, left hip hemarthrosis, dysphagia s/p PEG, chronic constipation, GERD who presented to the ED from [facility] with respiratory distress, chest congestion, non-productive cough, and hypoxia. Sepsis/Acute on chronic hypoxic respiratory failure secondary to aspiration pna and asthma Transaminitis Profound mental retardation Cerebral palsy Epilepsy Hx Herpes encephalitis GERD Dysphagia s/p PEG Chronic constipation plan patient can be switched to oral augmentin give it for another 4 days resp support rest as per the team
[2018-11-10] MEDS: BACLOFEN 10 MG TABLET (FP) GT SCH ×2 (09:39→22:40)
[2018-11-10] MEDS: RANITIDINE HCL 150 MG TABLET (FP) PO SCH ×2 (09:39→22:37)
[2018-11-10] MEDS: lamoTRIgine 100 MG TABLET (FP) PO SCH ×2 (09:39→22:47)
[2018-11-10] MEDS: cloBAZam 10 MG TABLET GT SCH ×2 (09:39→22:40)
[2018-11-10] MEDS: MAGNESIUM HYDROX 2400MG/30ML ORAL SUSPENSION 30 ML CUP GT SCH ×2 (09:41→22:41)
[2018-11-10] MEDS: PHENobarbital 20 MG/5 ML UNIT-DOSE CUP PO SCH ×2 (09:41→22:42)
[2018-11-10] MEDS: ACYCLOVIR 400 MG TABLET GT SCH ×2 (09:42→23:03)
[2018-11-10] MEDS: ENOXAPARIN NA (PORCINE) 40 MG/0.4 ML DISP.SYRIN SQ SCH (09:42)
[2018-11-10] MEDS ORDERED: SODIUM CHLORIDE 250 ML IV STA ×2 (11:10→13:20)
--- NOTE | 2018-11-10 11:20 | PN ---
Progress Note, Physician History of Present Illness: pulmonary alert,comfortable,-resp distress -tachypnea,-dyspnea,congestion improved - Current Medication List Current Medications: Active Medications Acyclovir (Zovirax -) 400 mg GT BID [facility] Last Admin: 11/10/18 09:42 Dose: 400 mg Baclofen (Lioresal -) 10 mg GT BID [facility] Last Admin: 11/10/18 09:39 Dose: 10 mg Clobazam (Onfi -) 10 mg GT HS [facility] Last Admin: 11/09/18 22:19 Dose: 10 mg Clobazam (Onfi -) 5 mg GT DAILY [facility] Last Admin: 11/10/18 09:39 Dose: 5 mg Clonazepam (Klonopin -) 1.5 mg GT TID [facility] Last Admin: 11/10/18 06:47 Dose: 1.5 mg Enoxaparin Sodium (Lovenox -) 40 mg SQ DAILY [facility] Last Admin: 11/10/18 09:42 Dose: 40 mg Piperacillin Sod/Tazobactam (Sod 3.375 gm/ Dextrose) 50 mls @ 100 mls/hr IVPB Q8H-IV [facility]; Protocol Last Admin: 11/10/18 09:40 Dose: 100 mls/hr Sodium Chloride (Normal Saline -) 1,000 mls @ 50 mls/hr IV ASDIR [facility] Stop: 11/10/18 17:50 Last Admin: 11/09/18 18:59 Dose: 50 mls/hr Sodium Chloride (Normal Saline -) 250 mls @ 250 mls/hr IV ASDIR STA Stop: 11/10/18 12:09 Lactobacillus Acidophilus (Bacid -) 1 tab PO [facility] Last Admin: 11/09/18 22:18 Dose: 1 tab Lamotrigine (Lamictal -) 200 mg PO BID [facility] Last Admin: 11/10/18 09:39 Dose: 200 mg Magnesium Hydroxide (Milk Of Magnesia -) 20 ml GT BID [facility] Last Admin: 11/10/18 09:41 Dose: 20 ml Mometasone Furoate (Asmanex 220mcg -) 1 puff IH [facility] Last Admin: 11/09/18 22:15 Dose: Not Given Phenobarbital (Phenobarbital Liquid -) 48 mg PO BID [facility] Last Admin: 11/10/18 09:41 Dose: 48 mg Ranitidine HCl (Zantac -) 75 mg PO BID [facility] Last Admin: 11/10/18 09:39 Dose: 75 mg - Objective Vital Signs: Vital Signs Temperature 97.8 F 11/10/18 07:00 Pulse Rate 48 L 11/10/18 07:00 Respiratory Rate 20 11/10/18 08:49 Blood Pressure 91/44 L 11/10/18 07:00 O2 Sat by Pulse Oximetry (%) 95 11/10/18 08:49 Constitutional: Yes: Calm Eyes: Yes: WNL HENT: Yes: WNL Neck: Yes: WNL Cardiovascular: Yes: Regular Rate and Rhythm, S1, S2 Respiratory: Yes: Rhonchi (few rhonchi) Gastrointestinal: Yes: Normal Bowel Sounds, Soft Extremities: Yes: Shortened Labs: CBC, BMP 11/10/18 07:00 11/10/18 07:00 INR, PTT INR 1.16 (0.83-1.09) H 11/05/18 06:10 Problem List - Problems (1) Acute hypoxemic respiratory failure Code(s): J96.01 - ACUTE RESPIRATORY FAILURE WITH HYPOXIA (2) Aspiration pneumonitis Code(s): J69.0 - PNEUMONITIS DUE TO INHALATION OF FOOD AND VOMIT (3) Fever Code(s): R50.9 - FEVER, UNSPECIFIED (4) Pneumonia Code(s): J18.9 - PNEUMONIA, UNSPECIFIED ORGANISM (5) Respiratory distress Code(s): R06.03 - ACUTE RESPIRATORY DISTRESS (6) Asthma Code(s): J45.909 - UNSPECIFIED ASTHMA, UNCOMPLICATED (7) Epilepsy Code(s): G40.909 - EPILEPSY, UNSP, NOT INTRACTABLE, WITHOUT STATUS EPILEPTICUS (8) PEG (percutaneous endoscopic gastrostomy) status Code(s): Z93.1 - GASTROSTOMY STATUS (9) Profound mental retardation Code(s): F73 - PROFOUND INTELLECTUAL DISABILITIES (10) Respiratory failure Code(s): J96.90 - RESPIRATORY FAILURE, UNSP, UNSP W HYPOXIA OR HYPERCAPNIA Qualifiers: Chronicity: acute Respiratory failure complication: hypoxia Qualified Code(s): J96.01 - Acute respiratory failure with hypoxia Assessment/Plan MP ACUTE HYPOXEMIC RESPIRATORY FAILURE improved PNEUMONIA clinically improved OPACIFICATION LEFT HEMITHORAX IMPROVING SEVERE MENTAL RETARDATION CEREBRAL PALSY FUNCTIONAL QUADRAPLEGIA SEIZURES ELEVATED LFTS improved PLAN ABX PER ID INHALED BRONCHODILATORS O2 TO MAINTAIN SAT >90% NIPPV NEEDED ORAL/PHARYNGEAL SUCTIONING ASPIRATION PRECAUTIONS DR VILLALTA Problem List - Problems (1) Acute hypoxemic respiratory failure Code(s): J96.01 - ACUTE RESPIRATORY FAILURE WITH HYPOXIA (2) Aspiration pneumonitis Code(s): J69.0 - PNEUMONITIS DUE TO INHALATION OF FOOD AND VOMIT (3) Fever Code(s): R50.9 - FEVER, UNSPECIFIED (4) Pneumonia Code(s): J18.9 - PNEUMONIA, UNSPECIFIED ORGANISM (5) Respiratory distress Code(s): R06.03 - ACUTE RESPIRATORY DISTRESS (6) Asthma Code(s): J45.909 - UNSPECIFIED ASTHMA, UNCOMPLICATED (7) Epilepsy Code(s): G40.909 - EPILEPSY, UNSP, NOT INTRACTABLE, WITHOUT STATUS EPILEPTICUS (8) PEG (percutaneous endoscopic gastrostomy) status Code(s): Z93.1 - GASTROSTOMY STATUS (9) Profound mental retardation Code(s): F73 - PROFOUND INTELLECTUAL DISABILITIES (10) Respiratory failure Code(s): J96.90 - RESPIRATORY FAILURE, UNSP, UNSP W HYPOXIA OR HYPERCAPNIA Qualifiers: Chronicity: acute Respiratory failure complication: hypoxia Qualified Code(s): J96.01 - Acute respiratory failure with hypoxia
--- NOTE | 2018-11-10 13:43 | DS ---
Physical Exam: SUBJECTIVE: Patient seen and examined OBJECTIVE: Vital Signs Period Temp Pulse Resp BP Sys/Linares Pulse Ox Last 24 Hr 97.7 F-98.0 F 48-90 18-20 78-104/39-54 95-96 PHYSICAL EXAM GENERAL: The patient is awake, alert, and fully oriented, in no acute distress. HEAD: Normal with no signs of trauma. EYES: PERRL, extraocular movements intact, sclera anicteric, conjunctiva clear. ENT: Ears normal, nares patent, oropharynx clear without exudates, moist mucous membranes. NECK: Trachea midline, full range of motion, supple. LUNGS: Breath sounds equal, clear to auscultation bilaterally, no wheezes, no crackles, no accessory muscle use. HEART: Regular rate and rhythm, S1, S2 without murmur, rub or gallop. ABDOMEN: Soft, nontender, nondistended, normoactive bowel sounds, no guarding, no rebound, no hepatosplenomegaly, no masses. EXTREMITIES: 2+ pulses, warm, well-perfused, no edema. NEUROLOGICAL: Cranial nerves II through XII grossly intact. Normal speech, gait not observed. PSYCH: Normal mood, normal affect. SKIN: Warm, dry, normal turgor, no rashes or lesions noted. LABS Laboratory Results - last 24 hr 11/10/18 11/10/18 07:00 07:00 WBC 4.6 RBC 3.59 L Hgb 11.9 Hct 35.5 MCV 99.0 H MCH 33.2 MCHC 33.6 RDW 14.9 Plt Count 269 MPV 8.9 Absolute Neuts (auto) 2.0 Neutrophils % 42.2 L D Lymphocytes % 41.6 H D Monocytes % 11.5 H Eosinophils % 3.8 Basophils % 0.9 Nucleated RBC % 0 Sodium 138 Potassium 3.8 Chloride 102 Carbon Dioxide 32 Anion Gap 4 L BUN 7.8 Creatinine 0.6 Est GFR (CKD-EPI)AfAm 165.41 Est GFR (CKD-EPI)NonAf 142.72 Random Glucose 92 Calcium 8.6 Total Bilirubin 0.5 AST 37 ALT 55 Alkaline Phosphatase 290 H Total Protein 7.4 Albumin 3.0 L HOSPITAL COURSE: Date of Admission:11/04/18 Date of Discharge: 11/10/18 Discharge Summary Reason For Visit: ASPIRATIONS PNEUMONITIS Current Active Problems Acute hypoxemic respiratory failure (Chronic) Condition: Improved - Instructions Diet, Activity, Other Instructions: You were admitted for having difficulty breathing and you had low oxygen in your blood, along with an infection in your lungs. While you were here we monitored your breathing and put you on oxygen which brought your oxygen levels back to your normal level. Also, we put you on an antibiotic to kill your infection in your lungs. To complete treatment of the pneumonia please take: Please make sure to follow up with Dr. Valentino. Please make sure to follow up with your lung doctor. Resume home medications as prescribed. Please return to emergency department if you are complaining of worsening of your symptoms. Referrals: Jose Luis Valentino Jr [Non Staff, Medical] - Disposition: LONGTERM FACILITY - Home Medications Comprehensive Discharge Medication List: Ambulatory Orders Acyclovir 400 mg GT BID 04/25/17 Baclofen 10 mg GT BID 04/25/17 Clobazam [Onfi -] 10 mg GT HS 04/25/17 Clonazepam 1.5 mg GT TID 04/25/17 Fluticasone Propionate [Flovent Diskus] 50 mcg IH DAILY 04/25/17 Ipratropium/Albuterol Sulfate [Iprat-Albut 0.5-3(2.5) mg/3 ml] 3 ml IH Q6H 04/25 Lactobacillus Acidophilus [Acidophilus] 1 each GT HS 04/25/17 Lamotrigine 200 mg GT BID 04/25/17 Magnesium Hydrox 2400MG/30Ml [Milk of Magnesia -] 20 ml GT BID 04/25/17 Multivitamin [Poly-Vitamin] 1 each GT HS 04/25/17 Phenobarbital 48.6 mg GT BID 04/25/17 Ranitidine [Zantac -] 75 mg GT BID #0 tab 03/29/18 Diazepam Rectal Gel [Diastat Rectal Gel -] 10 mg OK PRN PRN 05/23/18 Fructooligosaccharides/Polydex [Fiber-Stat 15 gm/30 ml Liquid] 15 gm GT HS 05/23 Protein Supplement [Promod] 946 ml PO DAILY 05/23/18 Sodium Phosphate/Na Biphos [Fleet Adult Rectal Enema -] 133 ml RC ONCE PRN 05/23 Clobazam [Onfi] 5 mg PO AM 11/06/18 Problem List - Problems (1) Aspiration pneumonitis Code(s): J69.0 - PNEUMONITIS DUE TO INHALATION OF FOOD AND VOMIT - Discharge Referral Referred to [facility] Med P.C.: No
[2018-11-10] MEDS ORDERED: SODIUM CHLORIDE 1,000 ML IV SCH (16:00)
--- NOTE | 2018-11-10 16:29 | PN ---
Physical Exam: SUBJECTIVE: Patient seen and examined at the bedside this AM. Overnight pt's BP dropped to 78/54 and a 250ml bolus NACL was given and tube feeds were stopped. They have since been resumed. Pt was on 3l N.C. tolerating well with SaO2 >90% so titrated down to 2L N.C. OBJECTIVE: Vital Signs Period Temp Pulse Resp BP Sys/Lniares Pulse Ox Last 24 Hr 97.7 F-98.0 F 48-90 18-20 78-104/36-54 95-96 GENERAL: The patient is awake, in no acute distress. HEAD: Normal with no signs of trauma. NECK: supple. LUNGS: Breath sounds tough to appreciate, no wheezes, no crackles, no ronchi, or stridor, no accessory muscle use noted. HEART: Regular rate and rhythm, S1, S2 without murmur, rub or gallop. ABDOMEN: Soft, nontender, nondistended, normoactive bowel sounds, no guarding, no rebound. EXTREMITIES: 2+ pulses, warm, well-perfused, no edema, and foot foams are on. SKIN: Warm, dry, normal turgor, no rashes or lesions noted. Laboratory Results - last 24 hr CBC, BMP 11/10/18 07:00 11/10/18 07:00 ALP decreased to 290 Current Medications Acyclovir (Zovirax -) 400 mg GT BID [facility] Last Admin: 11/10/18 09:42 Dose: 400 mg Baclofen (Lioresal -) 10 mg GT BID [facility] Last Admin: 11/10/18 09:39 Dose: 10 mg Clobazam (Onfi -) 10 mg GT HS [facility] Last Admin: 11/09/18 22:19 Dose: 10 mg Clobazam (Onfi -) 5 mg GT DAILY [facility] Last Admin: 11/10/18 09:39 Dose: 5 mg Clonazepam (Klonopin -) 1.5 mg GT TID [facility] Last Admin: 11/10/18 14:03 Dose: 1.5 mg Enoxaparin Sodium (Lovenox -) 40 mg SQ DAILY [facility] Last Admin: 11/10/18 09:42 Dose: 40 mg Piperacillin Sod/Tazobactam (Sod 3.375 gm/ Dextrose) 50 mls @ 100 mls/hr IVPB Q8H-IV [facility]; Protocol Last Admin: 11/10/18 09:40 Dose: 100 mls/hr Sodium Chloride (Normal Saline -) 1,000 mls @ 50 mls/hr IV ASDIR [facility] Stop: 11/10/18 17:50 Last Admin: 11/09/18 18:59 Dose: 50 mls/hr Sodium Chloride (Normal Saline -) 1,000 mls @ 40 mls/hr IV ASDIR [facility] Stop: 11/11/18 15:59 Lactobacillus Acidophilus (Bacid -) 1 tab PO HS [facility] Last Admin: 11/09/18 22:18 Dose: 1 tab Lamotrigine (Lamictal -) 200 mg PO BID [facility] Last Admin: 11/10/18 09:39 Dose: 200 mg Magnesium Hydroxide (Milk Of Magnesia -) 20 ml GT BID [facility] Last Admin: 11/10/18 09:41 Dose: 20 ml Mometasone Furoate (Asmanex 220mcg -) 1 puff IH [facility] Last Admin: 11/09/18 22:15 Dose: Not Given Phenobarbital (Phenobarbital Liquid -) 48 mg PO BID [facility] Last Admin: 11/10/18 09:41 Dose: 48 mg Ranitidine HCl (Zantac -) 75 mg PO BID [facility] Last Admin: 11/10/18 09:39 Dose: 75 mg ASSESSMENT/PLAN: 23 y/o M nonverbal [facility] w a PMH of intellectual disabilities, cerebral palsy, GERD, chronic dysphagia, chronic constipation, who was admitted for aspiration PNA. #Acute hypoxic respiratory failure due to aspiration PNA. - we have taken him off O2 due to SaO2 >90% as per respiratory. - Pulm consult Dr. Matute- maintain SaO2>90%, continue inhaled bronchodilators, aspiration precautions. - Appreciate ID recs (Dr. Douglas)- on zosyn 3.375 q8 and can switch to augmentin [id number] for completion of treatment at [place] via PEG tube. #ALP/transaminase elevation - these are chronic issues and both have downtrended to ALP- 290. #Epilepsy - continue w home meds for seizure phenobarb and lamictal. #Chronic constipation - resume home bowel regimens with MgOH as well as fiberstat. #Asthma - continue home nebulizers/ inhalers #Herpes encephalitis - continue acyclovir #FEN - 2 bolus's at 250ml NaCl given and one bolus at 40mL fluids given due to profound Hypotension - monitoring lytes - continue tube feeding as per home 1 audie 45mL/hr PROMOTE bag Prophylaxis- DVT: Lovenox 40mg SQ daily GI: ranitidine 150mg daily Dispo- plan is to d/c tm depending on pt's BP and SaO2 and to call Dr. Valentino before 2 pm to make sure he has a bed for Mr. Lanier. Problem List - Problems (1) Aspiration pneumonitis Code(s): J69.0 - PNEUMONITIS DUE TO INHALATION OF FOOD AND VOMIT Visit type - Emergency Visit Emergency Visit: No - New Patient This patient is new to me today: No - Critical Care Critical Care patient: No - Discharge Referral Referred to [facility] Med P.C.: No
[2018-11-10] MEDS: LACTOBACILLUS ACIDOPHILUS 1 TABLET PO SCH (22:37)
[2018-11-10] MEDS: MOMETASONE FUROATE 220 MCG/IH INHALER IH SCH (22:40)
[2018-11-11] MEDS ORDERED: DEXTROSE 5%-WATER - 50 ML IVPB ONE ×2 (03:36→16:20)
[2018-11-11] MEDS ORDERED: PIPERACILLIN/TAZOBACTAM 3.375 GM VIAL IVPB ONE ×2 (03:36→16:20)
[2018-11-11] MEDS: PIPERACILLIN/TAZOB 3.375 GM 3.375 GM in DEXTROSE 5%-WATER - 50 ML IVPB SCH ×3 (04:00→17:18)
[2018-11-11] MEDS: clonazePAM 0.5 MG TABLET GT SCH ×3 (06:23→22:48)
[2018-11-11 07:53] LABS: BASO % 0.8 % (0-2.0); HEMATOCRIT 34.9 % (35.4-49); HEMOGLOBIN 11.8 GM/dL (11.7-16.9); MCH 33.5 pg (25.7-33.7); MCHC 33.8 g/dl (32.0-35.9); MEAN CELL VOLUME 98.9 fl (80-96); MEAN PLT VOLUME 9.1 fl (7.5-11.1); MONO % 9.6 % (3.8-10.2); NEUT % 42.6 % (42.8-82.8); RBC 3.53 M/mm3 (4.00-5.60); RDW 15.5 % (11.9-15.9)
[2018-11-11 08:35] LABS: ALBUMIN 2.8 g/dl (3.4-5.0); BILIRUBIN,TOTAL 0.4 mg/dL (0.2-1); BLOOD UREA NITROGEN 7.7 mg/dL (7-18); CALCIUM 8.8 mg/dL (8.5-10.1); CREATININE 0.5 mg/dL (0.55-1.3); PLATELET COUNT 277 K/MM3 (134-434)
--- NOTE | 2018-11-11 08:42 | PN ---
Progress Note, Physician History of Present Illness: pulmonary awake,alert,no distress,-sob,-congestion - Current Medication List Current Medications: Active Medications Acyclovir (Zovirax -) 400 mg GT BID [facility] Baclofen (Lioresal -) 10 mg GT BID [facility] Clobazam (Onfi -) 10 mg GT HS [facility] Clobazam (Onfi -) 5 mg GT DAILY [facility] Clonazepam (Klonopin -) 1.5 mg GT TID [facility] Enoxaparin Sodium (Lovenox -) 40 mg SQ DAILY [facility] Sodium Chloride (Normal Saline -) 1,000 mls @ 40 mls/hr IV ASDIR [facility] Stop: 11/11/18 15:59 Last Admin: 11/10/18 17:32 Dose: 40 mls/hr Piperacillin Sod/Tazobactam (Sod 3.375 gm/ Dextrose) 50 mls @ 100 mls/hr IVPB Q8H-IV [facility]; Protocol Lactobacillus Acidophilus (Bacid -) 1 tab PO HS [facility] Lamotrigine (Lamictal -) 200 mg PO BID [facility] Magnesium Hydroxide (Milk Of Magnesia -) 20 ml GT BID [facility] Mometasone Furoate (Asmanex 220mcg -) 1 puff IH HS [facility] Phenobarbital (Phenobarbital Liquid -) 48 mg PO BID [facility] Ranitidine HCl (Zantac -) 75 mg PO BID [facility] - Objective Vital Signs: Vital Signs Temperature 97.1 F L 11/11/18 06:00 Pulse Rate 48 L 11/11/18 06:00 Respiratory Rate 18 11/11/18 06:00 Blood Pressure 88/48 L 11/11/18 06:00 O2 Sat by Pulse Oximetry (%) 96 11/10/18 20:39 Constitutional: Yes: Calm, Thin Eyes: Yes: WNL HENT: Yes: WNL Neck: Yes: WNL Cardiovascular: Yes: Regular Rate and Rhythm, S1, S2 Respiratory: Yes: Rhonchi (few rhonchi) Gastrointestinal: Yes: Normal Bowel Sounds, Soft Extremities: Yes: Shortened Edema: No Labs: CBC, BMP 11/11/18 06:03 11/11/18 06:03 INR, PTT INR 1.16 (0.83-1.09) H 11/05/18 06:10 Problem List - Problems (1) Acute hypoxemic respiratory failure Code(s): J96.01 - ACUTE RESPIRATORY FAILURE WITH HYPOXIA (2) Aspiration pneumonitis Code(s): J69.0 - PNEUMONITIS DUE TO INHALATION OF FOOD AND VOMIT (3) Fever Code(s): R50.9 - FEVER, UNSPECIFIED (4) Pneumonia Code(s): J18.9 - PNEUMONIA, UNSPECIFIED ORGANISM (5) Respiratory distress Code(s): R06.03 - ACUTE RESPIRATORY DISTRESS (6) Asthma Code(s): J45.909 - UNSPECIFIED ASTHMA, UNCOMPLICATED (7) Epilepsy Code(s): G40.909 - EPILEPSY, UNSP, NOT INTRACTABLE, WITHOUT STATUS EPILEPTICUS (8) PEG (percutaneous endoscopic gastrostomy) status Code(s): Z93.1 - GASTROSTOMY STATUS (9) Profound mental retardation Code(s): F73 - PROFOUND INTELLECTUAL DISABILITIES (10) Respiratory failure Code(s): J96.90 - RESPIRATORY FAILURE, UNSP, UNSP W HYPOXIA OR HYPERCAPNIA Qualifiers: Chronicity: acute Respiratory failure complication: hypoxia Qualified Code(s): J96.01 - Acute respiratory failure with hypoxia Assessment/Plan MP ACUTE HYPOXEMIC RESPIRATORY FAILURE improved PNEUMONIA clinically improved OPACIFICATION LEFT HEMITHORAX IMPROVING SEVERE MENTAL RETARDATION CEREBRAL PALSY FUNCTIONAL QUADRAPLEGIA SEIZURES ELEVATED LFTS improved PLAN ABX PER ID INHALED BRONCHODILATORS O2 NEEDED ORAL/PHARYNGEAL SUCTIONING ASPIRATION PRECAUTIONS DR VILLALTA Problem List - Problems (1) Acute hypoxemic respiratory failure Code(s): J96.01 - ACUTE RESPIRATORY FAILURE WITH HYPOXIA (2) Aspiration pneumonitis Code(s): J69.0 - PNEUMONITIS DUE TO INHALATION OF FOOD AND VOMIT (3) Fever Code(s): R50.9 - FEVER, UNSPECIFIED (4) Pneumonia Code(s): J18.9 - PNEUMONIA, UNSPECIFIED ORGANISM (5) Respiratory distress Code(s): R06.03 - ACUTE RESPIRATORY DISTRESS (6) Asthma Code(s): J45.909 - UNSPECIFIED ASTHMA, UNCOMPLICATED (7) Epilepsy Code(s): G40.909 - EPILEPSY, UNSP, NOT INTRACTABLE, WITHOUT STATUS EPILEPTICUS (8) PEG (percutaneous endoscopic gastrostomy) status Code(s): Z93.1 - GASTROSTOMY STATUS (9) Profound mental retardation Code(s): F73 - PROFOUND INTELLECTUAL DISABILITIES (10) Respiratory failure Code(s): J96.90 - RESPIRATORY FAILURE, UNSP, UNSP W HYPOXIA OR HYPERCAPNIA Qualifiers: Chronicity: acute Respiratory failure complication: hypoxia Qualified Code(s): J96.01 - Acute respiratory failure with hypoxia
[2018-11-11] MEDS: BACLOFEN 10 MG TABLET (FP) GT SCH ×2 (09:26→22:46)
[2018-11-11] MEDS: PHENobarbital 20 MG/5 ML UNIT-DOSE CUP PO SCH ×2 (09:27→22:49)
[2018-11-11] MEDS: MAGNESIUM HYDROX 2400MG/30ML ORAL SUSPENSION 30 ML CUP GT SCH ×2 (09:28→22:49)
[2018-11-11] MEDS: cloBAZam 10 MG TABLET GT SCH (09:28)
[2018-11-11] MEDS: ENOXAPARIN NA (PORCINE) 40 MG/0.4 ML DISP.SYRIN SQ SCH (09:28)
[2018-11-11] MEDS: RANITIDINE HCL 150 MG TABLET (FP) PO SCH ×2 (09:28→22:47)
[2018-11-11] MEDS: lamoTRIgine 100 MG TABLET (FP) PO SCH ×2 (09:29→22:47)
[2018-11-11] MEDS: ACYCLOVIR 400 MG TABLET GT SCH ×2 (09:30→22:52)
--- NOTE | 2018-11-11 13:15 | PN ---
Progress Note, Physician History of Present Illness: patient stable no new issues - Current Medication List Current Medications: Active Medications Acyclovir (Zovirax -) 400 mg GT BID [facility] Last Admin: 11/11/18 09:30 Dose: 400 mg Baclofen (Lioresal -) 10 mg GT BID [facility] Last Admin: 11/11/18 09:26 Dose: 10 mg Clobazam (Onfi -) 10 mg GT HS [facility] Clobazam (Onfi -) 5 mg GT DAILY [facility] Last Admin: 11/11/18 09:28 Dose: 5 mg Clonazepam (Klonopin -) 1.5 mg GT TID [facility] Enoxaparin Sodium (Lovenox -) 40 mg SQ DAILY [facility] Last Admin: 11/11/18 09:28 Dose: 40 mg Sodium Chloride (Normal Saline -) 1,000 mls @ 40 mls/hr IV ASDIR [facility] Stop: 11/11/18 15:59 Last Admin: 11/10/18 17:32 Dose: 40 mls/hr Piperacillin Sod/Tazobactam (Sod 3.375 gm/ Dextrose) 50 mls @ 100 mls/hr IVPB Q8H-IV [facility]; Protocol Last Admin: 11/11/18 09:27 Dose: 100 mls/hr Lactobacillus Acidophilus (Bacid -) 1 tab PO HS [facility] Lamotrigine (Lamictal -) 200 mg PO BID [facility] Last Admin: 11/11/18 09:29 Dose: 200 mg Magnesium Hydroxide (Milk Of Magnesia -) 20 ml GT BID [facility] Last Admin: 11/11/18 09:28 Dose: 20 ml Mometasone Furoate (Asmanex 220mcg -) 1 puff IH [facility] Phenobarbital (Phenobarbital Liquid -) 48 mg PO BID [facility] Last Admin: 11/11/18 09:27 Dose: 48 mg Ranitidine HCl (Zantac -) 75 mg PO BID [facility] Last Admin: 11/11/18 09:28 Dose: 75 mg - Objective Vital Signs: Vital Signs Temperature 98 F 11/11/18 10:00 Pulse Rate 78 11/11/18 10:00 Respiratory Rate 20 11/11/18 10:00 Blood Pressure 84/53 L 11/11/18 10:00 O2 Sat by Pulse Oximetry (%) 95 11/11/18 09:00 Constitutional: Yes: No Distress, Calm Cardiovascular: Yes: S1, S2 Respiratory: Yes: On Nasal O2, Poor Air Entry Gastrointestinal: Yes: Normal Bowel Sounds, Soft Neurological: Yes: Alert, Other Psychiatric: Yes: Other Labs: CBC, BMP 11/11/18 06:03 11/11/18 06:03 INR, PTT INR 1.16 (0.83-1.09) H 11/05/18 06:10 Assessment/Plan 3 year old man with a history of profound mental retardation, CP, epilepsy, chronic hypoxic respiratory failure, asthma, Herpes encephalitis, left hip hemarthrosis, dysphagia s/p PEG, chronic constipation, GERD who presented to the ED from [facility] with respiratory distress, chest congestion, non-productive cough, and hypoxia. Sepsis/Acute on chronic hypoxic respiratory failure secondary to aspiration pna and asthma Transaminitis Profound mental retardation Cerebral palsy Epilepsy Hx Herpes encephalitis GERD Dysphagia s/p PEG Chronic constipation plan stop zosyn change to oral augmentin resp support rest as per the team
[2018-11-11] MEDS ORDERED: PT OWN MED DRAWER 7, Y5N ONE ×3 (16:32→22:52)
--- NOTE | 2018-11-11 16:34 | PN ---
Progress Note (short form) - Note Progress Note: Patient is comfortable wit no acute distress. Vital Signs Temperature 98.1 F 11/11/18 14:00 Pulse Rate 67 11/11/18 14:00 Respiratory Rate 18 11/11/18 14:00 Blood Pressure 93/44 L 11/11/18 14:00 O2 Sat by Pulse Oximetry (%) 95 11/11/18 09:00 GENERAL: The patient is awake, non verbal, in no acute distress. HEAD: Normal with no signs of trauma. EYES: PERRL, extraocular movements intact, sclera anicteric, conjunctiva clear. ENT: Ears normal, oropharynx clear without exudates, moist mucous membranes. NECK: Trachea midline, full range of motion, supple. LUNGS: Breath sounds equal, CTABL, no wheezes, no crackles, no accessory muscle use. HEART: Regular rate and rhythm, S1, S2 without murmur, rub or gallop. ABDOMEN: Soft, NT, ND, normoactive bowel sounds, no guarding, no rebound, no hepatosplenomegaly, no masses. EXTREMITIES: 2+ pulses, warm, well-perfused, no edema. NEUROLOGICAL: Cranial nerves II through XII grossly intact. . PSYCH: non verbal SKIN: Warm, dry, normal turgor, no rashes or lesions noted CBCD WBC 4.0 K/mm3 (4.0-10.0) 11/11/18 06:03 RBC 3.53 M/mm3 (4.00-5.60) L 11/11/18 06:03 Hgb 11.8 GM/dL (11.7-16.9) 11/11/18 06:03 Hct 34.9 % (35.4-49) L 11/11/18 06:03 MCV 98.9 fl (80-96) H 11/11/18 06:03 MCHC 33.8 g/dl (32.0-35.9) 11/11/18 06:03 RDW 15.5 % (11.9-15.9) 11/11/18 06:03 Plt Count 277 K/MM3 (134-434) 11/11/18 06:03 MPV 9.1 fl (7.5-11.1) 11/11/18 06:03 CMP Sodium 141 mmol/L (136-145) 11/11/18 06:03 Potassium 4.0 mmol/L (3.5-5.1) 11/11/18 06:03 Chloride 106 mmol/L (98-107) 11/11/18 06:03 Carbon Dioxide 30 mmol/L (21-32) 11/11/18 06:03 Anion Gap 5 MMOL/L (8-16) L 11/11/18 06:03 BUN 7.7 mg/dL (7-18) 11/11/18 06:03 Creatinine 0.5 mg/dL (0.55-1.3) L 11/11/18 06:03 Random Glucose 93 mg/dL (74-106) 11/11/18 06:03 Calcium 8.8 mg/dL (8.5-10.1) 11/11/18 06:03 Total Bilirubin 0.4 mg/dL (0.2-1) 11/11/18 06:03 AST 31 U/L (15-37) 11/11/18 06:03 ALT 47 U/L (13-61) 11/11/18 06:03 Alkaline Phosphatase 254 U/L (45-117) H 11/11/18 06:03 Total Protein 7.0 g/dl (6.4-8.2) 11/11/18 06:03 Albumin 2.8 g/dl (3.4-5.0) L 11/11/18 06:03 CARDIAC ENZYMES Troponin I < 0.02 ng/ml (0.00-0.05) 11/04/18 13:21 Current Medications Generic Name Dose Route Start Last Admin Trade Name Freq PRN Reason Stop Dose Admin Acyclovir 400 mg 11/11/18 10:00 11/11/18 09:30 Zovirax - GT 400 mg BID JORGE Administration Baclofen 10 mg 11/11/18 10:00 11/11/18 09:26 Lioresal - GT 10 mg BID JORGE Administration Clobazam 10 mg 11/11/18 22:00 Onfi - GT HS JORGE Clobazam 5 mg 11/11/18 10:00 11/11/18 09:28 Onfi - GT 5 mg DAILY JORGE Administration Clonazepam 1.5 mg 11/11/18 14:00 11/11/18 13:36 Klonopin - GT 1.5 mg TID JORGE Administration Enoxaparin Sodium 40 mg 11/11/18 10:00 11/11/18 09:28 Lovenox - SQ 40 mg DAILY JORGE Administration Piperacillin Sod/Tazobactam 50 mls @ 100 mls/hr 11/11/18 10:00 11/11/18 09:27 Sod 3.375 gm/ Dextrose IVPB 100 mls/hr Q8H-IV JORGE Administration Protocol Lactobacillus Acidophilus 1 tab 11/11/18 22:00 Bacid - PO HS JORGE Lamotrigine 200 mg 11/11/18 10:00 11/11/18 09:29 Lamictal - PO 200 mg BID JORGE Administration Magnesium Hydroxide 20 ml 11/11/18 10:00 11/11/18 09:28 Milk Of Magnesia - GT 20 ml BID JORGE Administration Mometasone Furoate 1 puff 11/11/18 22:00 Asmanex 220mcg - IH HS JORGE Phenobarbital 48 mg 11/11/18 10:00 11/11/18 09:27 Phenobarbital Liquid - PO 48 mg BID JORGE Administration Ranitidine HCl 75 mg 11/11/18 10:00 11/11/18 09:28 Zantac - PO 75 mg BID JORGE Administration Home Medications Medication Instructions Recorded Acyclovir 400 mg GT BID 04/25/17 Baclofen 10 mg GT BID 04/25/17 Clobazam [Onfi -] 10 mg GT HS 04/25/17 Clonazepam 1.5 mg GT TID 04/25/17 Fluticasone Propionate [Flovent 50 mcg IH DAILY 04/25/17 Diskus] Ipratropium/Albuterol Sulfate 3 ml IH Q6H 04/25/17 [Iprat-Albut 0.5-3(2.5) mg/3 ml] Lactobacillus Acidophilus 1 each GT HS 04/25/17 [Acidophilus] Lamotrigine 200 mg GT BID 04/25/17 Magnesium Hydrox 2400MG/30Ml [Milk 20 ml GT BID 04/25/17 of Magnesia -] Multivitamin [Poly-Vitamin] 1 each GT HS 04/25/17 Phenobarbital 48.6 mg GT BID 04/25/17 Ranitidine [Zantac -] 75 mg GT BID #0 tab 03/29/18 Diazepam Rectal Gel [Diastat 10 mg [place] PRN PRN 05/23/18 Rectal Gel -] Fructooligosaccharides/Polydex 15 gm GT HS 05/23/18 [Fiber-Stat 15 gm/30 ml Liquid] Protein Supplement [Promod] 946 ml PO DAILY 05/23/18 Sodium Phosphate/Na Biphos [Fleet 133 ml RC ONCE PRN 05/23/18 Adult Rectal Enema -] Clobazam [Onfi] 5 mg PO AM 11/06/18 Microbiology 11/06/18 06:20 Blood - Peripheral Venous Blood Culture - Final NO GROWTH AFTER 5 DAYS INCUBATION 11/06/18 06:30 Blood - Peripheral Venous Blood Culture - Final NO GROWTH AFTER 5 DAYS INCUBATION 11/04/18 13:21 Blood - Peripheral Venous Blood Culture - Final NO GROWTH AFTER 5 DAYS INCUBATION 11/04/18 13:21 Blood - Peripheral Venous Blood Culture - Final NO GROWTH AFTER 5 DAYS INCUBATION 11/04/18 13:21 Urine - Urine Clean Catch Urine Culture - Final NO GROWTH OBTAINED Assessment and plan: patient is a 22 y/o male with h/o herpetic meningioencephalitis, MR, seizures , recurrent aspiration PNA , left hip hemarthrosis, dysphagia, PEG, chronic constipation, GERD who is being treated for b/l PNA # Acute on chronic hypoxic resp failure due to having b/l PNA /aspiration: last dose of zosyn today , will continue with oral Augmentin. - cont Nebs, keep sat >94% on 4 L via [place] , Team spoke to [facility], patient has been on O2 on and off in past. # H/o Seizures: cont meds. # Transaminitis: chronic , improved. # h/o herpetic encephalitis: cont acyclovir DVT PX: Lovenox Will dc patient to [facility] in am Visit type - Emergency Visit Emergency Visit: Yes ED Registration Date: 11/04/18 Care time: The patient presented to the Emergency Department on the above date and was hospitalized for further evaluation of their emergent condition. - New Patient This patient is new to me today: No - Critical Care Critical Care patient: No - Discharge Referral Referred to [facility] No
[2018-11-11] MEDS ORDERED: LACTOBACILLUS ACIDOPHILUS 1 TABLET PO SCH (22:00)
[2018-11-11] MEDS ORDERED: cloBAZam 10 MG TABLET GT SCH (22:00)
[2018-11-11] MEDS ORDERED: MOMETASONE FUROATE 220 MCG/IH INHALER IH SCH (22:00)
[2018-11-12] MEDS ORDERED: PIPERACILLIN/TAZOBACTAM 3.375 GM VIAL IVPB ONE (03:15)
[2018-11-12] MEDS ORDERED: DEXTROSE 5%-WATER - 50 ML IVPB ONE (03:15)
[2018-11-12] MEDS: PIPERACILLIN/TAZOB 3.375 GM 3.375 GM in DEXTROSE 5%-WATER - 50 ML IVPB SCH (03:19)
[2018-11-12] MEDS: clonazePAM 0.5 MG TABLET GT SCH ×2 (07:03→15:53)
--- NOTE | 2018-11-12 09:33 | PN ---
Progress Note (short form) - Note Progress Note: PULMONARY VSS Constitutional: Yes: Calm, Thin Eyes: Yes: WNL HENT: Yes: WNL Neck: Yes: WNL Cardiovascular: Yes: Regular Rate and Rhythm, S1, S2 Respiratory: Yes: Rhonchi (few rhonchi) Gastrointestinal: Yes: Normal Bowel Sounds, Soft Extremities: Yes: Shortened Edema: No Labs/CXR noted Problem List - Problems (1) Acute hypoxemic respiratory failure Code(s): J96.01 - ACUTE RESPIRATORY FAILURE WITH HYPOXIA (2) Aspiration pneumonitis Code(s): J69.0 - PNEUMONITIS DUE TO INHALATION OF FOOD AND VOMIT (3) Fever Code(s): R50.9 - FEVER, UNSPECIFIED (4) Pneumonia Code(s): J18.9 - PNEUMONIA, UNSPECIFIED ORGANISM (5) Respiratory distress Code(s): R06.03 - ACUTE RESPIRATORY DISTRESS (6) Asthma Code(s): J45.909 - UNSPECIFIED ASTHMA, UNCOMPLICATED (7) Epilepsy Code(s): G40.909 - EPILEPSY, UNSP, NOT INTRACTABLE, WITHOUT STATUS EPILEPTICUS (8) PEG (percutaneous endoscopic gastrostomy) status Code(s): Z93.1 - GASTROSTOMY STATUS (9) Profound mental retardation Code(s): F73 - PROFOUND INTELLECTUAL DISABILITIES (10) Respiratory failure Code(s): J96.90 - RESPIRATORY FAILURE, UNSP, UNSP W HYPOXIA OR HYPERCAPNIA Qualifiers: Chronicity: acute Respiratory failure complication: hypoxia Qualified Code(s): J96.01 - Acute respiratory failure with hypoxia Assessment/Plan MP ACUTE HYPOXEMIC RESPIRATORY FAILURE improved PNEUMONIA clinically improved OPACIFICATION LEFT HEMITHORAX IMPROVING SEVERE MENTAL RETARDATION CEREBRAL PALSY FUNCTIONAL QUADRAPLEGIA SEIZURES ELEVATED LFTS improved PLAN ABX PER ID INHALED BRONCHODILATORS O2 NEEDED ORAL/PHARYNGEAL SUCTIONING ASPIRATION PRECAUTIONS Kwame IBARRA MD
[2018-11-12] MEDS: AMOX TR/POTASSIUM CLAVULANATE 250 MG/5 ML BOTTLE PO SCH ×3 (09:59→18:29)
[2018-11-12] MEDS: lamoTRIgine 100 MG TABLET (FP) PO SCH (10:00)
[2018-11-12] MEDS: BACLOFEN 10 MG TABLET (FP) GT SCH (10:00)
[2018-11-12] MEDS: ENOXAPARIN NA (PORCINE) 40 MG/0.4 ML DISP.SYRIN SQ SCH (10:01)
[2018-11-12] MEDS: MAGNESIUM HYDROX 2400MG/30ML ORAL SUSPENSION 30 ML CUP GT SCH (10:01)
[2018-11-12] MEDS: cloBAZam 10 MG TABLET GT SCH (10:02)
[2018-11-12] MEDS: RANITIDINE HCL 150 MG TABLET (FP) PO SCH (10:02)
[2018-11-12] MEDS: PHENobarbital 20 MG/5 ML UNIT-DOSE CUP PO SCH (10:02)
[2018-11-12] MEDS: ACYCLOVIR 400 MG TABLET GT SCH (10:02)
--- NOTE | 2018-11-12 12:01 | DS ---
Physical Exam: SUBJECTIVE: Patient examined at the bedside this AM. Pt is not in acute distress, no acute overnight events. OBJECTIVE: Vital Signs Period Temp Pulse Resp BP Sys/Linares Pulse Ox Last 24 Hr 97.1 F-99.0 F 48-67 18-20 86-98/40-56 95-99 PHYSICAL EXAM GENERAL: The patient is in no acute distress. HEAD: Normal with no signs of trauma. EYES: sclera anicteric, conjunctiva clear. NECK: supple. LUNGS: Breath sounds equal, clear to auscultation bilaterally, no wheezes, no crackles, no accessory muscle use. HEART: Regular rate and rhythm, S1, S2 without murmur, rub or gallop. ABDOMEN: Soft, nontender, nondistended, normoactive bowel sounds, no guarding. EXTREMITIES: warm, well-perfused, no edema. SKIN: Warm, dry, no rashes or lesions noted. LABS HOSPITAL COURSE: Date of Admission:11/04/18 This is a 23 y/o M from [facility] with a PMH of intellectual disabilities, cerebral palsy, chronic constipation, chronic dysphagia, asthma, GERD, that was admitted for aspiration pneumonia. CXR showed increased markings in the right hemithorax. Chest CT showed improvement in initial b/l pulmonary infiltrates. While he was here we treated his aspiration PNA with zosyn 3.375 since 11/05 and Oxygen. He was given fluid bolus's when he became hypotensive and eventually he improved. Patients overall condition has improved. Patient is to be discharged today and continue with augmentin 875 BID through PEG tube for 4 more days at [facility]. (12 day course abx). Date of Discharge: 11/12/18 Minutes to complete discharge: 35 Discharge Summary Reason For Visit: ASPIRATIONS PNEUMONITIS Current Active Problems Acute hypoxemic respiratory failure (Chronic) - Instructions Diet, Activity, Other Instructions: You were admitted for having difficulty breathing and you had low oxygen in your blood, along with an infection in your lungs. While you were here we monitored your breathing and put you on oxygen which brought your oxygen levels back to your normal level. Also, we put you on an antibiotic to kill your infection in your lungs. To complete treatment of the pneumonia please take: Augmentin 875mg twice daily through the PEG tube for 4 days. Please make sure to follow up with Dr. Valentino. Please make sure to follow up with your lung doctor. Resume home medications as prescribed. Please return to emergency department if you are complaining of worsening of your symptoms. Referrals: Jose Luis Valentino Jr [Non Staff, Medical] - - Home Medications Comprehensive Discharge Medication List: Ambulatory Orders Acyclovir 400 mg GT BID 04/25/17 Baclofen 10 mg GT BID 04/25/17 Clobazam [Onfi -] 10 mg GT HS 04/25/17 Clonazepam 1.5 mg GT TID 04/25/17 Fluticasone Propionate [Flovent Diskus] 50 mcg IH DAILY 04/25/17 Ipratropium/Albuterol Sulfate [Iprat-Albut 0.5-3(2.5) mg/3 ml] 3 ml IH Q6H 04/25 Lactobacillus Acidophilus [Acidophilus] 1 each GT HS 04/25/17 Lamotrigine 200 mg GT BID 04/25/17 Magnesium Hydrox 2400MG/30Ml [Milk of Magnesia -] 20 ml GT BID 04/25/17 Multivitamin [Poly-Vitamin] 1 each GT HS 04/25/17 Phenobarbital 48.6 mg GT BID 04/25/17 Ranitidine [Zantac -] 75 mg GT BID #0 tab 03/29/18 Diazepam Rectal Gel [Diastat Rectal Gel -] 10 mg NM PRN PRN 05/23/18 Fructooligosaccharides/Polydex [Fiber-Stat 15 gm/30 ml Liquid] 15 gm GT HS 05/23 Protein Supplement [Promod] 946 ml PO DAILY 05/23/18 Sodium Phosphate/Na Biphos [Fleet Adult Rectal Enema -] 133 ml RC ONCE PRN 05/23 Clobazam [Onfi] 5 mg PO AM 11/06/18 Problem List - Problems (1) Aspiration pneumonitis Code(s): J69.0 - PNEUMONITIS DUE TO INHALATION OF FOOD AND VOMIT This patient is new to me today: No Emergency Visit: No Critical Care patient: No - Discharge Referral Referred to [facility] Med [facility] No
--- NOTE | 2018-11-12 12:24 | PN ---
Progress Note, Physician History of Present Illness: patient stable no new issues - Current Medication List Current Medications: Active Medications Acyclovir (Zovirax -) 400 mg GT BID REPLACED BY [facility] Last Admin: 11/12/18 10:02 Dose: 400 mg Amoxicillin/Clavulanate Potassium (Augmentin 250 Mg/5 Ml Oral Suspension -) 500 mg PO TIDCM REPLACED BY [facility] Last Admin: 11/12/18 09:59 Dose: 500 mg Baclofen (Lioresal -) 10 mg GT BID REPLACED BY [facility] Last Admin: 11/12/18 10:00 Dose: 10 mg Clobazam (Onfi -) 10 mg GT [facility] Last Admin: 11/11/18 22:49 Dose: 10 mg Clobazam (Onfi -) 5 mg GT DAILY REPLACED BY [facility] Last Admin: 11/12/18 10:02 Dose: 5 mg Clonazepam (Klonopin -) 1.5 mg GT TID REPLACED BY [facility] Last Admin: 11/12/18 07:03 Dose: 1.5 mg Enoxaparin Sodium (Lovenox -) 40 mg SQ DAILY REPLACED BY [facility] Last Admin: 11/12/18 10:01 Dose: 40 mg Lactobacillus Acidophilus (Bacid -) 1 tab PO [facility] Last Admin: 11/11/18 22:46 Dose: 1 tab Lamotrigine (Lamictal -) 200 mg PO BID REPLACED BY [facility] Last Admin: 11/12/18 10:00 Dose: 200 mg Magnesium Hydroxide (Milk Of Magnesia -) 20 ml GT BID REPLACED BY [facility] Last Admin: 11/12/18 10:01 Dose: 20 ml Mometasone Furoate (Asmanex 220mcg -) 1 puff IH [facility] Last Admin: 11/11/18 22:49 Dose: Not Given Phenobarbital (Phenobarbital Liquid -) 48 mg PO BID REPLACED BY [facility] Last Admin: 11/12/18 10:02 Dose: 48 mg Ranitidine HCl (Zantac -) 75 mg PO BID REPLACED BY [facility] Last Admin: 11/12/18 10:02 Dose: 75 mg - Objective Vital Signs: Vital Signs Temperature 97.1 F L 11/12/18 05:25 Pulse Rate 58 L 11/12/18 06:40 Respiratory Rate 20 11/12/18 06:40 Blood Pressure 98/50 L 11/12/18 06:40 O2 Sat by Pulse Oximetry (%) 99 11/12/18 06:41 Constitutional: Yes: No Distress, Calm Neck: Yes: Supple Cardiovascular: Yes: Regular Rate and Rhythm Respiratory: Yes: Regular, CTA Bilaterally Gastrointestinal: Yes: Normal Bowel Sounds, Soft Musculoskeletal: Yes: WNL Extremities: Yes: Other Neurological: Yes: Alert, Other Labs: CBC, BMP 11/11/18 06:03 11/11/18 06:03 INR, PTT INR 1.16 (0.83-1.09) H 11/05/18 06:10 Assessment/Plan 3 year old man with a history of profound mental retardation, CP, epilepsy, chronic hypoxic respiratory failure, asthma, Herpes encephalitis, left hip hemarthrosis, dysphagia s/p PEG, chronic constipation, GERD who presented to the ED from [facility] with respiratory distress, chest congestion, non-productive cough, and hypoxia. Sepsis/Acute on chronic hypoxic respiratory failure secondary to aspiration pna and asthma Transaminitis Profound mental retardation Cerebral palsy Epilepsy Hx Herpes encephalitis GERD Dysphagia s/p PEG Chronic constipation plan finish the course close watch resp support rest as per the team
--- NOTE | 2018-11-12 18:35 | PN ---
Teaching Attending Note Name of Resident: Angeline Sims ATTENDING PHYSICIAN STATEMENT I saw and evaluated the patient. I reviewed the resident's note and discussed the case with the resident. I agree with the resident's findings and plan as documented. SUBJECTIVE: No acute events overnight. OBJECTIVE: Vital Signs Temperature 97.6 F 11/12/18 14:00 Pulse Rate 75 11/12/18 14:00 Respiratory Rate 18 11/12/18 14:00 Blood Pressure 88/59 L 11/12/18 14:00 O2 Sat by Pulse Oximetry (%) 99 11/12/18 06:41 GENERAL: The patient is awake, non verbal, in no acute distress. HEAD: Normal with no signs of trauma. EYES: PERRL, extraocular movements intact, sclera anicteric, conjunctiva clear. ENT: Ears normal, oropharynx clear without exudates, moist mucous membranes. NECK: Trachea midline, full range of motion, supple. LUNGS: Breath sounds equal, CTABL, no wheezes, no crackles, no accessory muscle use. HEART: Regular rate and rhythm, S1, S2 without murmur, rub or gallop. ABDOMEN: Soft, NT, ND, normoactive bowel sounds, no guarding, no rebound, no hepatosplenomegaly, no masses. EXTREMITIES: 2+ pulses, warm, well-perfused, no edema. NEUROLOGICAL: Cranial nerves II through XII grossly intact. . PSYCH: non verbal SKIN: Warm, dry, normal turgor, no rashes or lesions noted CBCD WBC 4.0 K/mm3 (4.0-10.0) 11/11/18 06:03 RBC 3.53 M/mm3 (4.00-5.60) L 11/11/18 06:03 Hgb 11.8 GM/dL (11.7-16.9) 11/11/18 06:03 Hct 34.9 % (35.4-49) L 11/11/18 06:03 MCV 98.9 fl (80-96) H 11/11/18 06:03 MCHC 33.8 g/dl (32.0-35.9) 11/11/18 06:03 RDW 15.5 % (11.9-15.9) 11/11/18 06:03 Plt Count 277 K/MM3 (134-434) 11/11/18 06:03 MPV 9.1 fl (7.5-11.1) 11/11/18 06:03 CMP Sodium 141 mmol/L (136-145) 11/11/18 06:03 Potassium 4.0 mmol/L (3.5-5.1) 11/11/18 06:03 Chloride 106 mmol/L (98-107) 11/11/18 06:03 Carbon Dioxide 30 mmol/L (21-32) 11/11/18 06:03 Anion Gap 5 MMOL/L (8-16) L 11/11/18 06:03 BUN 7.7 mg/dL (7-18) 11/11/18 06:03 Creatinine 0.5 mg/dL (0.55-1.3) L 11/11/18 06:03 Random Glucose 93 mg/dL (74-106) 11/11/18 06:03 Calcium 8.8 mg/dL (8.5-10.1) 11/11/18 06:03 Total Bilirubin 0.4 mg/dL (0.2-1) 11/11/18 06:03 AST 31 U/L (15-37) 11/11/18 06:03 ALT 47 U/L (13-61) 11/11/18 06:03 Alkaline Phosphatase 254 U/L (45-117) H 11/11/18 06:03 Total Protein 7.0 g/dl (6.4-8.2) 11/11/18 06:03 Albumin 2.8 g/dl (3.4-5.0) L 11/11/18 06:03 CARDIAC ENZYMES Troponin I < 0.02 ng/ml (0.00-0.05) 11/04/18 13:21 Home Medications Medication Instructions Recorded Acyclovir 400 mg GT BID 04/25/17 Baclofen 10 mg GT BID 04/25/17 Clobazam [Onfi -] 10 mg GT HS 04/25/17 Clonazepam 1.5 mg GT TID 04/25/17 Fluticasone Propionate [Flovent 50 mcg IH DAILY 04/25/17 Diskus] Ipratropium/Albuterol Sulfate 3 ml IH Q6H 04/25/17 [Iprat-Albut 0.5-3(2.5) mg/3 ml] Lactobacillus Acidophilus 1 each GT HS 04/25/17 [Acidophilus] Lamotrigine 200 mg GT BID 04/25/17 Magnesium Hydrox 2400MG/30Ml [Milk 20 ml GT BID 04/25/17 of Magnesia -] Multivitamin [Poly-Vitamin] 1 each GT HS 04/25/17 Phenobarbital 48.6 mg GT BID 04/25/17 Ranitidine [Zantac -] 75 mg GT BID #0 tab 03/29/18 Diazepam Rectal Gel [Diastat 10 mg [place] PRN PRN 05/23/18 Rectal Gel -] Fructooligosaccharides/Polydex 15 gm GT HS 05/23/18 [Fiber-Stat 15 gm/30 ml Liquid] Protein Supplement [Promod] 946 ml PO DAILY 05/23/18 Sodium Phosphate/Na Biphos [Fleet 133 ml RC ONCE PRN 05/23/18 Adult Rectal Enema -] Clobazam [Onfi] 5 mg PO AM 11/06/18 Acyclovir [Zovirax -] 400 mg GT BID #60 tablet 11/12/18 Amox-Tr/K Cl [Augmentin Suspension 500 mg PO TIDCM #120 ml 11/12/18 -] Clobazam [Onfi -] 5 mg GT DAILY tablet MDD 1 11/12/18 Clobazam [Onfi -] 5 mg GT DAILY tablet MDD 1 11/12/18 Enoxaparin [Lovenox -] 40 mg SQ DAILY disp.syrin 11/12/18 Lactobacillus Acidophilus [Bacid -] 1 tab PO HS tab 11/12/18 Magnesium Hydrox 2400MG/30Ml [Milk 20 ml GT BID cup 11/12/18 of Magnesia -] Mometasone Furoate [Asmanex 220Mcg 1 puff IH HS inhaler 11/12/18 -] Current Medications Generic Name Dose Route Start Last Admin Trade Name Freq PRN Reason Stop Dose Admin Acyclovir 400 mg 11/11/18 10:00 11/12/18 10:02 Zovirax - GT 400 mg BID JORGE Administration Amoxicillin/Clavulanate Potassium 500 mg 11/12/18 10:00 11/12/18 18:29 Augmentin 250 Mg/5 Ml Oral Suspension - PO 500 mg TIDCM JORGE Administration Baclofen 10 mg 11/11/18 10:00 11/12/18 10:00 Lioresal - GT 10 mg BID JORGE Administration Clobazam 10 mg 11/11/18 22:00 11/11/18 22:49 Onfi - GT 10 mg HS JORGE Administration Clobazam 5 mg 11/11/18 10:00 11/12/18 10:02 Onfi - GT 5 mg DAILY JORGE Administration Clonazepam 1.5 mg 11/11/18 14:00 11/12/18 15:53 Klonopin - GT 1.5 mg TID JORGE Administration Enoxaparin Sodium 40 mg 11/11/18 10:00 11/12/18 10:01 Lovenox - SQ 40 mg DAILY JORGE Administration Lactobacillus Acidophilus 1 tab 11/11/18 22:00 11/11/18 22:46 Bacid - PO 1 tab HS JORGE Administration Lamotrigine 200 mg 11/11/18 10:00 11/12/18 10:00 Lamictal - PO 200 mg BID JORGE Administration Magnesium Hydroxide 20 ml 11/11/18 10:00 11/12/18 10:01 Milk Of Magnesia - GT 20 ml BID JORGE Administration Mometasone Furoate 1 puff 11/11/18 22:00 11/11/18 22:49 Asmanex 220mcg - IH Not Given HS JORGE Phenobarbital 48 mg 11/11/18 10:00 11/12/18 10:02 Phenobarbital Liquid - PO 48 mg BID JORGE Administration Ranitidine HCl 75 mg 11/11/18 10:00 11/12/18 10:02 Zantac - PO 75 mg BID JORGE Administration ASSESSMENT AND PLAN: patient is a 22 y/o male with h/o herpetic meningioencephalitis, MR, seizures , recurrent aspiration PNA , left hip hemarthrosis, dysphagia, PEG, chronic constipation, GERD who is being treated for b/l PNA # Acute on chronic hypoxic resp failure due to having b/l PNA /aspiration: last dose of zosyn today , will continue with oral Augmentin. - cont Nebs, keep sat >94% on 4 L via [place] , Team spoke to [facility], patient has been on O2 on and off in the past. # H/o Seizures: cont meds. # Transaminitis: chronic , improved. # h/o herpetic encephalitis: cont acyclovir DVT PX: Lovenox Will dc patient to [facility] today.
[2018-11-12 20:12] VITALS: BP 90/45; PULSE 68; TEMP 98.8
== END 2018-11-12 19:45 | disposition home or self-care (01) | DRG 137 ==
LOC: JER 12:34 → JERBED 14:56 → J4W 20:57
PROVIDERS: ADMIT Internal Medicine; ATTEND Internal Medicine
DX: J69.0 Pneumonitis due to inhalation of food and vomit (principal); K21.9 Gastro-esophageal reflux disease without esophagitis; J45.909 Unspecified asthma, uncomplicated; G40.909 Epilepsy, unspecified, not intractable, without status epilepticus; D72.829 Elevated white blood cell count, unspecified; R13.10 Dysphagia, unspecified; K59.09 Other constipation; Z93.1 Gastrostomy status; G80.9 Cerebral palsy, unspecified; J96.21 Acute and chronic respiratory failure with hypoxia; M25.052 Hemarthrosis, left hip; R53.2 Functional quadriplegia; I95.9 Hypotension, unspecified; B02.0 Zoster encephalitis; E87.5 Hyperkalemia; F73 Profound intellectual disabilities; R74.0 Nonspecific elevation of levels of transaminase and lactic acid dehydrogenase [LDH]; A41.9 Sepsis, unspecified organism
CPT/HCPCS: 36415; 71045-TC-FY; 71250-TC; 76705-TC; 80053; 81003; 82803; 83605; 83735; 84100; 84484; 85025; 85610; 85730; 87040; 87086; 93005; 93010; 94640; 94761; 99285-25; J0475; J7030

== ENCOUNTER 2018-12-20 11:13 | Inpatient (IN) | payer OTHER ==
--- NOTE | 2018-12-20 12:17 | PDOC ---
History of Present Illness - General Chief Complaint: Shortness of Breath Stated Complaint: SOB Time Seen by Provider: 12/20/18 12:11 - History of Present Illness Initial Comments: 12/20/18 13:01 23y/o M with hx intellectual disability, hip contracture, cerebral palsy, epilepsy,asthma , GERD,herpes encephalitis, non-verbal at baseline presents to the ED from [place] with 1 day of wheezing, rhonchi and desaturations to the 70 "s. He improved slightly after receiving duoenebs and O2 10L nasal cannula, however still desaturating to the 80's. Past History - Past Medical History Allergies/Adverse Reactions: Allergies Allergy/AdvReac Type Severity Reaction Status Date / Time No Known Allergies Allergy Verified 12/20/18 11:48 Home Medications: Ambulatory Orders Acyclovir 400 mg GT BID 04/25/17 Baclofen 10 mg GT BID 04/25/17 Clobazam [Onfi -] 10 mg GT HS 04/25/17 Clonazepam 1.5 mg GT TID 04/25/17 Fluticasone Propionate [Flovent Diskus] 50 mcg IH DAILY 04/25/17 Ipratropium/Albuterol Sulfate [Iprat-Albut 0.5-3(2.5) mg/3 ml] 3 ml IH Q6H 04/25 Lactobacillus Acidophilus [Acidophilus] 1 each GT HS 04/25/17 Lamotrigine 200 mg GT BID 04/25/17 Magnesium Hydrox 2400MG/30Ml [Milk of Magnesia -] 20 ml GT BID 04/25/17 Multivitamin [Poly-Vitamin] 1 each GT HS 04/25/17 Phenobarbital 48.6 mg GT BID 04/25/17 Ranitidine [Zantac -] 75 mg GT BID #0 tab 03/29/18 Diazepam Rectal Gel [Diastat Rectal Gel -] 10 mg NV PRN PRN 05/23/18 Fructooligosaccharides/Polydex [Fiber-Stat 15 gm/30 ml Liquid] 15 gm GT HS 05/23 Protein Supplement [Promod] 946 ml PO DAILY 05/23/18 Sodium Phosphate/Na Biphos [Fleet Adult Rectal Enema -] 133 ml RC ONCE PRN 05/23 Clobazam [Onfi] 5 mg PO AM 11/06/18 Acyclovir [Zovirax -] 400 mg GT BID #60 tablet 11/12/18 Amox-Tr/K Cl [Augmentin Suspension -] 500 mg PO TIDCM #120 ml 11/12/18 Clobazam [Onfi -] 5 mg GT DAILY tablet MDD 1 11/12/18 Clobazam [Onfi -] 5 mg GT DAILY tablet MDD 1 11/12/18 Enoxaparin [Lovenox -] 40 mg SQ DAILY disp.syrin 11/12/18 Lactobacillus Acidophilus [Bacid -] 1 tab PO HS tab 11/12/18 Magnesium Hydrox 2400MG/30Ml [Milk of Magnesia -] 20 ml GT BID cup 11/12/18 Mometasone Furoate [Asmanex 220Mcg -] 1 puff IH HS inhaler 11/12/18 Anemia: No Asthma: Yes Cancer: No Cardiac Disorders: No CVA: No COPD: No CHF: No Dementia: No Diabetes: No GI Disorders: Yes (DYSPHAGIA. CONSTIPATION. GERD.) Disorders: No HTN: No Hypercholesterolemia: No Liver Disease: No Psychiatric Problems: Yes (MR) Seizures: Yes (EPILEPSY) Thyroid Disease: No - Surgical History Abdominal Surgery: Yes (GT PLACEMENT) Appendectomy: No Cardiac Surgery: No Cholecystectomy: No Lung Surgery: No Neurologic Surgery: No Orthopedic Surgery: Yes (l hip pinning, r hip osteotomy) - Suicide/Smoking/Psychosocial Hx Smoking Status: No Smoking History: Never smoked Have you smoked in the past 12 months: No Number of Cigarettes Smoked Daily: 0 Information on smoking cessation initiated: No Hx Alcohol Use: No Drug/Substance Use Hx: No Substance Use Type: None Hx Substance Use Treatment: No Review of Systems - Review of Systems Able to Perform ROS?: No Comments:: 12/21/18 21:52 Pt. is intelectually disabled. *Physical Exam - Vital Signs Last Vital Signs Temp Pulse Resp BP Pulse Ox 91.6 F L 58 L 16 103/57 L 100 12/20/18 11:13 12/20/18 11:13 12/20/18 11:13 12/20/18 11:13 12/20/18 11:13 - Physical Exam General Appearance: No: Apparent Distress, Disheveled HEENT: negative: Scleral Icterus (R), Scleral Icterus (L) Neck: positive: Decreased range of motion Respiratory/Chest: positive: Rhonchi, Wheezing. negative: Lungs Clear, Accessory Muscle Use, Crackles Cardiovascular: positive: Regular Rhythm, Regular Rate, S1, S2. negative: Edema , JVD Gastrointestinal/Abdominal: positive: Normal Bowel Sounds, Soft. negative: Pulsatile Mass, Mass Musculoskeletal: positive: Other (contractures) Extremity: positive: Normal Capillary Refill Integumentary: positive: Normal Color (cool to touch) Neurologic: positive: Other ED Treatment Course - LABORATORY CBC & Chemistry Diagram: 12/23/18 07:08 12/23/18 07:08 Medical Decision Making - Medical Decision Making 12/20/18 13:04 Ddx: Sepsis vs pneumonia vs asthma exacerbation Sepsis order set started. Pt meets 3 criteria (temp, RR, source of infection) cbc, cmp, blood cultures, ekg, vbg, lactic acid, Meds: Vanc and Zosyn administered at 13:58 -Pt O2 increased to 10L now saturations at 95% -EKG: normal sinus rhythm, right bundle branch block, inferior infarct age undetermined 12/20/18 14:08 CXR: Left lower opacity concerning for left lobe atelactasis -Lactic acid pending 12/20/18 14:11 12/20/18 14:18 Lactic acid is 0.8 PCP: Jose Luis Valentino MD Pt is admitted for shortness of breath *DC/Admit/Observation/Transfer Diagnosis at time of Disposition: Shortness of breath - Discharge Dispostion Decision to Admit order: Yes - Referrals - Patient Instructions - Post Discharge Activity
[2018-12-20] MEDS ORDERED: ALBUTEROL SO4 2.5/IPRATROPIUM 0.5 INH SOL 3 ML VIAL.NEB. NEB ONE ×3 (12:40→13:57)
[2018-12-20] MEDS ORDERED: VANCOMYCIN 1 GM in D5W (PRE-DOCKED) 1,000 MG/250 ML IVPB ONE (12:56)
[2018-12-20] MEDS ORDERED: PIPERACILLIN/TAZOB 4.5 GM 4.5 GM in DEXTROSE 5%-WATER 100 ML IVPB ONE (12:58)
--- NOTE | 2018-12-20 13:24 | PDOC ---
Documentation entered by Stephanie Campos SCRIBE, acting as scribe for Car Johnson MD. Car Johnson MD: This documentation has been prepared by the Andres turner Brenda, SCRIBE, under my direction and personally reviewed by me in its entirety. I confirm that the documentation accurately reflects all work, treatment, procedures, and medical decision making performed by me. Attending Attestation - Resident Resident Name: Bradford Portillo - ED Attending Attestation I have performed the following: I have examined & evaluated the patient, The case was reviewed & discussed with the resident, I agree w/resident's findings & plan, Exceptions are as noted - HPI HPI: 12/20/18 14:20 The patient is a 23 year old male, with a significant PMH of asthma, profound intellectual disabilities, cerebral palsy, herpes encephalitis, left hip hemarthrosis and contracture, epilepsy, chronic constipation, chronic dysphagia , GERD, and recurrent pneumonia who presents to the emergency department [facility] with 1 day of wheezing, rhonchi and desaturations to the 70s, according to Boyce. History was limited due to patients condition. Allergies: NKA, NKDA Surgical History: GT placement, left hip pinning, right hip osteotomy Social History: Profound intellectual disabilities PCP: Dr. Valentino - Physicial Exam PE: 12/20/18 14:21 Vitals: Triage vital signs reviewed General Appearance: No acute distress, well nourished, well developed Head: Atraumatic Neck: Supple; No nuchal rigidity Chest Wall: Nontender Cardiac: Regular rate and rhythm, no murmurs, no rubs, no gallops Lungs: (+) Coarse breath sounds bilaterally. Abdomen: Soft, nondistended, normal bowel sounds, nontender to palpation Extremities: Full range of motion to all extremities, no cyanosis, clubbing, or edema Skin: Warm and dry, no rashes or lesions, no rash, no petechiae Neuro: AOX3; Cranial Nerves 2-12 grossly intact. Psych: Normal mood, normal affect - Medical Decision Making 12/20/18 16:32 The patient is a 23 year old male, with a significant PMH of asthma, profound intellectual disabilities, cerebral palsy, herpes encephalitis, left hip hemarthrosis and contracture, epilepsy, chronic constipation, chronic dysphagia , GERD, and recurrent pneumonia who presents to the emergency department [facility] from [place] with 1 day of wheezing, rhonchi and desaturations to the 70s, according to Austen. History was limited due to patients condition. Hypoxia productive cough coarse breath sounds and evidence of pneumonia on x-ray Given the possibility of aspiration pneumonia we'll admit to hospitalist for broad-spectrum antibiotics and further management.
[2018-12-20 13:37] LABS: BASO % 0.2 % (0-2.0); EOS % 2.6 % (0-4.5); HEMOGLOBIN 14.8 GM/dL (11.7-16.9); LYMPH % 28.9 % (8-40); MCH 33.8 pg (25.7-33.7); MCHC 33.6 g/dl (32.0-35.9); MEAN CELL VOLUME 100.5 fl (80-96); MEAN PLT VOLUME 12.5 fl (7.5-11.1); MONO % 4.5 % (3.8-10.2); NEUT % 63.8 % (42.8-82.8); PLATELET COUNT 127 K/MM3 (134-434); RBC 4.38 M/mm3 (4.00-5.60); RDW 16.5 % (11.9-15.9); VENOUS PC02 43.1 mmHg (41-51); VENOUS PH 7.4 (7.31-7.41); WHITE BLOOD COUNT 8.1 K/mm3 (4.0-10.0)
[2018-12-20] MEDS ORDERED: VANCOMYCIN 1 GRAM (PRE-DOCKED) 1,000 MG/250 ML BAG IVPB ONE ×2 (13:57→13:58)
[2018-12-20] MEDS ORDERED: PIPERACILLIN/TAZOB 4.5 GM 4.5 GM/100 ML BAG IVPB ONE (13:57)
[2018-12-20 16:30] LABS: ALBUMIN 3.5 g/dl (3.4-5.0); ALK PHOS 406 U/L (45-117); ANION GAP 6 MMOL/L (8-16); BILIRUBIN,TOTAL 0.6 mg/dL (0.2-1); BLOOD UREA NITROGEN 16.3 mg/dL (7-18); CALCIUM 9.2 mg/dL (8.5-10.1); CHLORIDE 104 mmol/L (98-107); CO2 30 mmol/L (21-32); CREATININE 0.5 mg/dL (0.55-1.3); GLUCOSE,RANDOM 112 mg/dL (74-106); POTASSIUM 4.8 mmol/L (3.5-5.1); SGOT/AST 108 U/L (15-37); SGPT/ALT 119 U/L (13-61); SODIUM 141 mmol/L (136-145); TOT PROT 8.7 g/dl (6.4-8.2)
--- NOTE | 2018-12-20 18:36 | HP ---
Admitting History and Physical - Primary Care Physician PCP: Lea Rivas - Admission History of Present Illness: 23y/o M with hx intellectual disability, hip contracture, cerebral palsy, epilepsy,asthma , GERD,herpes encephalitis, non-verbal at baseline presents to the ED from [place] with 1 day of wheezing, rhonchi and desaturations to the 70 "s. He improved slightly after receiving duoenebs and O2 10L nasal cannula, however still desaturating to the 80's. 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, cerebral palsy) Pulmonary: Yes: Asthma Gastrointestinal: Yes: Other (gastrostomy) Infectious Disease: Yes: Herpes Zoster Musculoskeletal: Yes: Other (Functional Qaudraplegic) - Smoking History Smoking history: Never smoked Have you smoked in the past 12 months: No Aproximately how many cigarettes per day: 0 - Alcohol/Substance Use Hx Alcohol Use: No - Social History ADL: Support Services History of Recent Travel: No Home Medications - Allergies Allergies/Adverse Reactions: Allergies Allergy/AdvReac Type Severity Reaction Status Date / Time No Known Allergies Allergy Verified 12/20/18 11:48 - Home Medications Home Medications: Ambulatory Orders Acyclovir 400 mg GT BID 04/25/17 Baclofen 10 mg GT BID 04/25/17 Clobazam [Onfi -] 10 mg GT HS 04/25/17 Clonazepam 1.5 mg GT TID 04/25/17 Fluticasone Propionate [Flovent Diskus] 50 mcg IH DAILY 04/25/17 Ipratropium/Albuterol Sulfate [Iprat-Albut 0.5-3(2.5) mg/3 ml] 3 ml IH Q6H 04/25 Lactobacillus Acidophilus [Acidophilus] 1 each GT HS 04/25/17 Lamotrigine 200 mg GT BID 04/25/17 Magnesium Hydrox 2400MG/30Ml [Milk of Magnesia -] 20 ml GT BID 04/25/17 Multivitamin [Poly-Vitamin] 1 each GT HS 04/25/17 Phenobarbital 48.6 mg GT BID 04/25/17 Ranitidine [Zantac -] 75 mg GT BID #0 tab 03/29/18 Diazepam Rectal Gel [Diastat Rectal Gel -] 10 mg RI PRN PRN 05/23/18 Fructooligosaccharides/Polydex [Fiber-Stat 15 gm/30 ml Liquid] 15 gm GT HS 05/23 Protein Supplement [Promod] 946 ml PO DAILY 05/23/18 Sodium Phosphate/Na Biphos [Fleet Adult Rectal Enema -] 133 ml RC ONCE PRN 05/23 Clobazam [Onfi] 5 mg PO AM 11/06/18 Acyclovir [Zovirax -] 400 mg GT BID #60 tablet 11/12/18 Amox-Tr/K Cl [Augmentin Suspension -] 500 mg PO TIDCM #120 ml 11/12/18 Clobazam [Onfi -] 5 mg GT DAILY tablet MDD 1 11/12/18 Clobazam [Onfi -] 5 mg GT DAILY tablet MDD 1 11/12/18 Enoxaparin [Lovenox -] 40 mg SQ DAILY disp.syrin 11/12/18 Lactobacillus Acidophilus [Bacid -] 1 tab PO HS tab 11/12/18 Magnesium Hydrox 2400MG/30Ml [Milk of Magnesia -] 20 ml GT BID cup 11/12/18 Mometasone Furoate [Asmanex 220Mcg -] 1 puff IH HS inhaler 11/12/18 Physical Examination Vital Signs: Vital Signs Temperature 92 F L 12/20/18 12:41 Pulse Rate 58 L 12/20/18 12:41 Respiratory Rate 20 12/20/18 12:41 Blood Pressure 103/57 L 12/20/18 12:41 O2 Sat by Pulse Oximetry (%) 92 L 12/20/18 16:37 Constitutional: Yes: No Distress HENT: Yes: Atraumatic Neck: Yes: Supple Cardiovascular: Yes: Regular Rate and Rhythm Respiratory: Yes: Rhonchi Gastrointestinal: Yes: Normal Bowel Sounds, Other (peg in place) Extremities: Yes: Other (contracted) Neurological: Yes: Other (awake) Labs: CBC, BMP 12/20/18 13:00 12/20/18 15:34 Problem List - Problems (1) PNA (pneumonia) Assessment/Plan: iv abx id consult Code(s): J18.9 - PNEUMONIA, UNSPECIFIED ORGANISM (2) Shortness of breath Code(s): R06.02 - SHORTNESS OF BREATH (3) Acute hypoxemic respiratory failure Assessment/Plan: prnnebs steroids oxygen inhalation pulmonary consult Code(s): J96.01 - ACUTE RESPIRATORY FAILURE WITH HYPOXIA (4) Asthma Assessment/Plan: prn duo nebs Code(s): J45.909 - UNSPECIFIED ASTHMA, UNCOMPLICATED (5) PEG (percutaneous endoscopic gastrostomy) status Code(s): Z93.1 - GASTROSTOMY STATUS (6) Seizure Assessment/Plan: on meds stable Code(s): R56.9 - UNSPECIFIED CONVULSIONS Assessment/Plan Laboratory Tests 12/20/18 12/20/18 12/20/18 13:00 13:00 13:00 WBC 8.1 RBC 4.38 Hgb 14.8 Hct 44.0 D MCV 100.5 H MCH 33.8 H MCHC 33.6 RDW 16.5 H Plt Count 127 L D MPV 12.5 H D Absolute Neuts (auto) 5.2 Neutrophils % 63.8 D Lymphocytes % 28.9 D Monocytes % 4.5 Eosinophils % 2.6 Basophils % 0.2 Nucleated RBC % 0 PT with INR INR VBG pH POC VBG pCO2 POC VBG pO2 VBG HCO3 VBG O2 Sat (Renzo) VBG Base Excess Sodium Cancelled Potassium Cancelled Chloride Cancelled Carbon Dioxide Cancelled Anion Gap Cancelled BUN Cancelled Creatinine Cancelled Est GFR (CKD-EPI)AfAm Cancelled Est GFR (CKD-EPI)NonAf Cancelled Random Glucose Cancelled Lactic Acid Calcium Cancelled Total Bilirubin Cancelled AST Cancelled ALT Cancelled Alkaline Phosphatase Cancelled Troponin I Cancelled Total Protein Cancelled Albumin Cancelled 12/20/18 12/20/18 12/20/18 13:00 13:00 13:31 WBC RBC Hgb Hct MCV MCH MCHC RDW Plt Count MPV Absolute Neuts (auto) Neutrophils % Lymphocytes % Monocytes % Eosinophils % Basophils % Nucleated RBC % PT with INR Cancelled INR Cancelled VBG pH 7.40 POC VBG pCO2 43.1 POC VBG pO2 178 H VBG HCO3 26.3 VBG O2 Sat (Renzo) 99.6 H VBG Base Excess 1.7 Sodium Potassium Chloride Carbon Dioxide Anion Gap BUN Creatinine Est GFR (CKD-EPI)AfAm Est GFR (CKD-EPI)NonAf Random Glucose Lactic Acid 0.8 Calcium Total Bilirubin AST ALT Alkaline Phosphatase Troponin I Total Protein Albumin 12/20/18 15:34 WBC RBC Hgb Hct MCV MCH MCHC RDW Plt Count MPV Absolute Neuts (auto) Neutrophils % Lymphocytes % Monocytes % Eosinophils % Basophils % Nucleated RBC % PT with INR INR VBG pH POC VBG pCO2 POC VBG pO2 VBG HCO3 VBG O2 Sat (Renzo) VBG Base Excess Sodium 141 Potassium 4.8 Chloride 104 Carbon Dioxide 30 Anion Gap 6 L BUN 16.3 Creatinine 0.5 L Est GFR (CKD-EPI)AfAm 178.28 Est GFR (CKD-EPI)NonAf 153.82 Random Glucose 112 H Lactic Acid Calcium 9.2 Total Bilirubin 0.6 AST 108 H ALT 119 H Alkaline Phosphatase 406 H Troponin I Total Protein 8.7 H Albumin 3.5 Active Medications Generic Name Dose Route Start Last Admin Trade Name Freq PRN Reason Stop Dose Admin Albuterol/Ipratropium 1 amp 12/20/18 18:47 Duoneb - NEB Q4H PRN SHORTNESS OF BREATH Baclofen 10 mg 12/20/18 22:00 12/21/18 09:35 Lioresal - GT 10 mg BID JORGE Administration Clobazam 5 mg 12/21/18 07:00 12/21/18 06:53 Onfi - PO 5 mg AM JORGE Administration Clonazepam 1.5 mg 12/20/18 22:00 12/21/18 13:53 Klonopin - GT 1.5 mg TID JORGE Administration Diazepam 10 mg 12/21/18 13:28 Diastat Rectal Gel - RC PRN PRN <Seizures> Heparin Sodium (Porcine) 5,000 unit 12/20/18 22:00 12/21/18 09:34 Heparin - SQ 5,000 unit BID JORGE Administration Sodium Chloride 1,000 mls @ 75 mls/hr 12/20/18 22:30 12/20/18 22:49 Normal Saline - IV 75 mls/hr ASDIR JORGE Administration Piperacillin Sod/Tazobactam 50 mls @ 100 mls/hr 12/21/18 13:15 12/21/18 13:53 Sod 3.375 gm/ Dextrose IVPB 100 mls/hr Q8H-IV JORGE Administration Protocol Methylprednisolone Sodium Succinate 40 mg 12/21/18 15:15 Solu-Medrol - IVPUSH Q12H JORGE Non-Formulary Medication 946 ml 12/21/18 10:00 Protein Supplement [Promod] PO DAILY JORGE Phenobarbital 45 mg 12/20/18 23:30 12/21/18 09:36 Phenobarbital - GT 45 mg BID JORGE Administration
[2018-12-20] MEDS ORDERED: ALBUTEROL SO4 2.5/IPRATROPIUM 0.5 INH SOL 3 ML VIAL.NEB. NEB PRN (18:47)
[2018-12-20] MEDS ORDERED: PHENOBARBITAL GT SCH (22:00)
[2018-12-20] MEDS ORDERED: clonazePAM 0.5 MG TABLET ONE (22:35)
[2018-12-20] MEDS ORDERED: BACLOFEN 10 MG TABLET (FP) ONE (22:36)
[2018-12-20] MEDS ORDERED: lamoTRIgine 100 MG TABLET (FP) ONE (22:36)
[2018-12-20] MEDS ORDERED: HEPARIN NA (PORCINE) 5,000 UNITS/ML 1ML VIAL ONE (22:36)
[2018-12-20] MEDS: HEPARIN NA (PORCINE) 5,000 UNITS/ML 1ML VIAL SQ SCH (22:48)
[2018-12-20] MEDS: clonazePAM 0.5 MG TABLET GT SCH (22:48)
[2018-12-20] MEDS: SODIUM CHLORIDE 1,000 ML IV SCH (22:49)
[2018-12-20] MEDS: BACLOFEN 10 MG TABLET (FP) GT SCH (22:49)
[2018-12-20] MEDS ORDERED: PHENobarbital 30 MG TABLET GT SCH (23:16)
[2018-12-21] MEDS: PHENobarbital 30 MG TABLET GT SCH ×3 (00:54→22:42)
[2018-12-21] MEDS: clonazePAM 0.5 MG TABLET GT SCH ×3 (06:53→22:42)
[2018-12-21] MEDS: cloBAZam 10 MG TABLET PO SCH (06:53)
[2018-12-21] MEDS ORDERED: PT OWN MED DRAWER 7, Y5N ONE ×2 (09:26→21:11)
[2018-12-21] MEDS: HEPARIN NA (PORCINE) 5,000 UNITS/ML 1ML VIAL SQ SCH ×2 (09:34→22:42)
[2018-12-21] MEDS: BACLOFEN 10 MG TABLET (FP) GT SCH ×2 (09:35→22:43)
[2018-12-21] MEDS ORDERED: PROTEIN SUPPLEMENT PO SCH (10:00)
--- NOTE | 2018-12-21 11:26 | EKG ---
Test Reason : Blood Pressure : / mmHG Vent. Rate : 060 BPM Atrial Rate : 060 BPM P-R Int : 146 ms QRS Dur : 122 ms QT Int : 460 ms P-R-T Axes : 034 051 014 degrees QTc Int : 460 ms NORMAL SINUS RHYTHM RIGHT BUNDLE BRANCH BLOCK INFERIOR INFARCT (CITED ON OR BEFORE 26-JUN-2016) ABNORMAL ECG WHEN COMPARED WITH ECG OF 04-NOV-2018 12:57, RIGHT BUNDLE BRANCH BLOCK IS NOW PRESENT Confirmed by Logan Fairchild MD ([id number]) on 12/21/2018 11:26:36 AM Referred By: Confirmed By:Logan Fairchild MD
--- NOTE | 2018-12-21 13:03 | CON.ID ---
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, cerebral palsy) Pulmonary: Yes: Asthma Gastrointestinal: Yes: Other (gastrostomy) Infectious Disease: Yes: Herpes Zoster Musculoskeletal: Yes: Other (Functional Qaudraplegic) - Alcohol/Substance Use Hx Alcohol Use: No - Smoking History Smoking history: Never smoked Have you smoked in the past 12 months: No Aproximately how many cigarettes per day: 0 - Social History Usual Living Arrangement: Intermediate ADL: Support Services History of Recent Travel: No Home Medications - Allergies Allergies/Adverse Reactions: Allergies Allergy/AdvReac Type Severity Reaction Status Date / Time No Known Allergies Allergy Verified 12/20/18 11:48 - Home Medications Home Medications: Ambulatory Orders Acyclovir 400 mg GT BID 04/25/17 Baclofen 10 mg GT BID 04/25/17 Clobazam [Onfi -] 10 mg GT HS 04/25/17 Clonazepam 1.5 mg GT TID 04/25/17 Fluticasone Propionate [Flovent Diskus] 50 mcg IH DAILY 04/25/17 Ipratropium/Albuterol Sulfate [Iprat-Albut 0.5-3(2.5) mg/3 ml] 3 ml IH Q6H 04/25 Lactobacillus Acidophilus [Acidophilus] 1 each GT HS 04/25/17 Lamotrigine 200 mg GT BID 04/25/17 Magnesium Hydrox 2400MG/30Ml [Milk of Magnesia -] 20 ml GT BID 04/25/17 Multivitamin [Poly-Vitamin] 1 each GT HS 04/25/17 Phenobarbital 48.6 mg GT BID 04/25/17 Ranitidine [Zantac -] 75 mg GT BID #0 tab 03/29/18 Diazepam Rectal Gel [Diastat Rectal Gel -] [address] PRN PRN 05/23/18 Fructooligosaccharides/Polydex [Fiber-Stat 15 gm/30 ml Liquid] 15 gm GT HS 05/23 Protein Supplement [Promod] 946 ml PO DAILY 05/23/18 Sodium Phosphate/Na Biphos [Fleet Adult Rectal Enema -] 133 ml RC ONCE PRN 05/23 Clobazam [Onfi] 5 mg PO AM 11/06/18 Acyclovir [Zovirax -] 400 mg GT BID #60 tablet 11/12/18 Amox-Tr/K Cl [Augmentin Suspension -] 500 mg PO TIDCM #120 ml 11/12/18 Clobazam [Onfi -] 5 mg GT DAILY tablet MDD 1 11/12/18 Clobazam [Onfi -] 5 mg GT DAILY tablet MDD 1 11/12/18 Enoxaparin [Lovenox -] 40 mg SQ DAILY disp.syrin 11/12/18 Lactobacillus Acidophilus [Bacid -] 1 tab PO HS tab 11/12/18 Magnesium Hydrox 2400MG/30Ml [Milk of Magnesia -] 20 ml GT BID cup 11/12/18 Mometasone Furoate [Asmanex 220Mcg -] 1 puff IH HS inhaler 11/12/18 Physical Exam Vital Signs: Vital Signs Temperature 99.2 F 12/21/18 06:00 Pulse Rate 119 H 12/21/18 06:00 Respiratory Rate 18 12/21/18 06:00 Blood Pressure 123/40 L 12/21/18 06:00 O2 Sat by Pulse Oximetry (%) 96 12/21/18 01:19 Labs: CBC, BMP 12/20/18 13:00 12/20/18 15:34
[2018-12-21] MEDS ORDERED: diazePAM ACUDIAL 5-7.5-10 MG 1 EACH KIT RC PRN (13:28)
[2018-12-21] MEDS ORDERED: PIPERACILLIN/TAZOBACTAM 3.375 GM VIAL IVPB ONE ×2 (13:51→16:44)
[2018-12-21] MEDS ORDERED: DEXTROSE 5%-WATER - 50 ML IVPB ONE ×2 (13:51→16:44)
[2018-12-21] MEDS: PIPERACILLIN/TAZOB 3.375 GM 3.375 GM in DEXTROSE 5%-WATER - 50 ML IVPB SCH ×2 (13:53→17:20)
[2018-12-21 14:15] VITALS: BMI 24.0
--- NOTE | 2018-12-21 15:02 | PN ---
Progress Note (short form) - Note Progress Note: Progress Note (short form) - Note Progress Note: PULMONARY CONSULTATION DICTATED 12/21/18 IMP ACUTE HYPOXEMIC RESPIRATORY FAILURE PNEUMONIA SEVERE MENTAL RETARDATION CEREBRAL PALSY FUNCTIONAL QUADRAPLEGIA SEIZURES ELEVATED LFTS PLAN ABX INHALED BRONCHODILATORS O2 TO MAINTAIN O2 SAT >90% NIPPV NEEDED SHORT COURSE OF STEROIDS ORAL/PHARYNGEAL SUCTIONING ASPIRATION PRECAUTIONS F/U CHEST X-RAYS MONITOR LFTS DR VILLALTA Problem List - Problems (1) Acute hypoxemic respiratory failure Code(s): J96.01 - ACUTE RESPIRATORY FAILURE WITH HYPOXIA (2) Aspiration pneumonitis Code(s): J69.0 - PNEUMONITIS DUE TO INHALATION OF FOOD AND VOMIT (3) Fever Code(s): R50.9 - FEVER, UNSPECIFIED (4) Pneumonia Code(s): J18.9 - PNEUMONIA, UNSPECIFIED ORGANISM (5) Respiratory distress Code(s): R06.03 - ACUTE RESPIRATORY DISTRESS (6) Asthma Code(s): J45.909 - UNSPECIFIED ASTHMA, UNCOMPLICATED (7) Epilepsy Code(s): G40.909 - EPILEPSY, UNSP, NOT INTRACTABLE, WITHOUT STATUS EPILEPTICUS (8) PEG (percutaneous endoscopic gastrostomy) status Code(s): Z93.1 - GASTROSTOMY STATUS (9) Profound mental retardation Code(s): F73 - PROFOUND INTELLECTUAL DISABILITIES (10) Respiratory failure Code(s): J96.90 - RESPIRATORY FAILURE, UNSP, UNSP W HYPOXIA OR HYPERCAPNIA Qualifiers: Chronicity: acute Respiratory failure complication: hypoxia Qualified Code(s): J96.01 - Acute respiratory failure with hypoxia
--- NOTE | 2018-12-21 17:05 | PN ---
Progress Note, Physician - Current Medication List Current Medications: Active Medications Albuterol/Ipratropium (Duoneb -) 1 amp NEB Q4H PRN PRN Reason: SHORTNESS OF BREATH Baclofen (Lioresal -) 10 mg GT BID [facility] Last Admin: 12/21/18 09:35 Dose: 10 mg Clobazam (Onfi -) 5 mg PO AM [facility] Last Admin: 12/21/18 06:53 Dose: 5 mg Clonazepam (Klonopin -) 1.5 mg GT TID [facility] Last Admin: 12/21/18 13:53 Dose: 1.5 mg Diazepam (Diastat Rectal Gel -) 10 mg RC PRN PRN PRN Reason: <Seizures> Heparin Sodium (Porcine) (Heparin -) 5,000 unit SQ BID [facility] Last Admin: 12/21/18 09:34 Dose: 5,000 unit Sodium Chloride (Normal Saline -) 1,000 mls @ 75 mls/hr IV ASDIR [facility] Last Admin: 12/20/18 22:49 Dose: 75 mls/hr Piperacillin Sod/Tazobactam (Sod 3.375 gm/ Dextrose) 50 mls @ 100 mls/hr IVPB Q8H-IV JORGE; Protocol Last Admin: 12/21/18 13:53 Dose: 100 mls/hr Methylprednisolone Sodium Succinate (Solu-Medrol -) 40 mg IVPUSH Q12H [facility] Non-Formulary Medication (Protein Supplement [Promod]) 946 ml PO DAILY [facility] Phenobarbital (Phenobarbital -) 45 mg GT BID [facility] Last Admin: 12/21/18 09:36 Dose: 45 mg - Objective Vital Signs: Vital Signs Temperature 98.3 F 12/21/18 14:32 Pulse Rate 112 H 12/21/18 14:32 Respiratory Rate 20 12/21/18 14:32 Blood Pressure 103/54 L 12/21/18 14:32 O2 Sat by Pulse Oximetry (%) 96 12/21/18 01:19 Constitutional: Yes: No Distress HENT: Yes: Atraumatic Neck: Yes: Supple Cardiovascular: Yes: Regular Rate and Rhythm Respiratory: Yes: Rhonchi Gastrointestinal: Yes: Other (peg in place) Extremities: Yes: Other (contracted) Neurological: Yes: Alert Labs: CBC, BMP 12/20/18 13:00 12/20/18 15:34 INR, PTT INR Cancelled 12/20/18 13:00 Problem List - Problems (1) PNA (pneumonia) Assessment/Plan: iv abx id consult Code(s): J18.9 - PNEUMONIA, UNSPECIFIED ORGANISM (2) Shortness of breath Code(s): R06.02 - SHORTNESS OF BREATH (3) Acute hypoxemic respiratory failure Assessment/Plan: prnnebs steroids oxygen inhalation pulmonary consult Code(s): J96.01 - ACUTE RESPIRATORY FAILURE WITH HYPOXIA (4) Asthma Assessment/Plan: prn duo nebs Code(s): J45.909 - UNSPECIFIED ASTHMA, UNCOMPLICATED (5) PEG (percutaneous endoscopic gastrostomy) status Code(s): Z93.1 - GASTROSTOMY STATUS (6) Seizure Assessment/Plan: on meds stable Code(s): R56.9 - UNSPECIFIED CONVULSIONS
[2018-12-21] MEDS: SODIUM CHLORIDE 1,000 ML IV SCH ×2 (17:19→22:43)
[2018-12-21] MEDS: methylPREDNISolone NA SUCC 40 MG/1 ML VIAL IVPUSH SCH (17:20)
[2018-12-22] MEDS ORDERED: DEXTROSE 5%-WATER - 50 ML IVPB ONE ×3 (02:11→17:32)
[2018-12-22] MEDS ORDERED: PIPERACILLIN/TAZOBACTAM 3.375 GM VIAL IVPB ONE ×3 (02:11→17:32)
[2018-12-22] MEDS: PIPERACILLIN/TAZOB 3.375 GM 3.375 GM in DEXTROSE 5%-WATER - 50 ML IVPB SCH ×3 (02:39→18:37)
[2018-12-22] MEDS: methylPREDNISolone NA SUCC 40 MG/1 ML VIAL IVPUSH SCH ×2 (02:39→15:18)
[2018-12-22] MEDS: SODIUM CHLORIDE 1,000 ML IV SCH (05:42)
[2018-12-22] MEDS: cloBAZam 10 MG TABLET PO SCH (06:29)
[2018-12-22] MEDS: clonazePAM 0.5 MG TABLET GT SCH ×3 (06:29→22:32)
--- NOTE | 2018-12-22 09:41 | CONS ---
PULMONARY CONSULTATION DATE OF CONSULTATION: 12/21/2018 REFERRING PHYSICIAN: Wilber Rivas MD SOURCE: History was obtained from the chart. HISTORY OF PRESENT ILLNESS: The patient is a 23-year-old, white male, known to me from previous hospitalization, with an extensive past medical history of profound mental retardation, cerebral palsy, herpes encephalitis, asthma, left hip hemiarthrosis with contracture, functional quadriplegia, epilepsy, chronic constipation, chronic dysphagia, GERD, recurrent pneumonias. He was recently hospitalized at [facility] November 2018, secondary to pneumonia. He is a resident of [facility]. He was transferred to [facility] on December 20, secondary to a 1-day history of increasing shortness of breath, O2 saturations in the 70s, wheezing and rhonchi. Patient presented to the emergency department. In the ER, he was treated with oxygen, as well as inhaled bronchodilators with some clinical improvement. He was transferred to the medical floor for further management. On admission, he was placed on broad-spectrum antibiotics and inhaled bronchodilators with improvement. PAST MEDICAL HISTORY: Again, as noted earlier, profound mental retardation, cerebral palsy, history of herpes encephalitis, asthma, functional quadriplegia chronic constipation, chronic dysphagia, GERD, recurrent pneumonias, left hip hemiarthrosis with contracture. CURRENT MEDICATIONS: Include piperacillin, heparin, phenobarbital, Klonopin Diastat, DuoNeb, normal saline. REVIEW OF SYSTEMS: Unable to obtain. PHYSICAL EXAMINATION: General: The patient is a thin male. Awake. Appears in no acute respiratory distress. Vital Signs: He is currently afebrile, blood pressure is 107/59, respiratory rate is 19, O2 saturation is 96% on 2 L. HEENT: Exam is normocephalic, atraumatic. Neck: Supple. Heart: Regular S1 and S2. Chest: Scattered bilateral rhonchi. Abdomen: Soft. Bowel sounds are positive. Extremities: Contracted and shortened. LABORATORIES: BUN is 16, creatinine 0.5. AST is 108, ALT is 119, alkaline phosphatase 406. Chest x-ray: Left basilar opacity and air in a mildly distended colon. IMPRESSION: 1. Acute hypoxemic respiratory failure; likely secondary to pneumonia. 2. Severe mental retardation. 3. Cerebral palsy. 4. History of herpes encephalitis. 5. Functional quadriplegia. 6. Seizures. 7. Elevated liver function tests. PLAN: Antibiotics. Inhaled bronchodilators. A short course of Medrol. Supplemental O2 to maintain saturations 90% or greater. NIPPV as needed. Oropharyngeal suctioning. Aspiration precautions. Obtain followup chest x- rays. JUNITO VILLALTA M.D. CHAVA/[id number] MTDD
--- NOTE | 2018-12-22 09:42 | PN ---
Progress Note, Physician History of Present Illness: patient looks much better more awake calm eyes open - Current Medication List Current Medications: Active Medications Albuterol/Ipratropium (Duoneb -) 1 amp NEB Q4H PRN PRN Reason: SHORTNESS OF BREATH Baclofen (Lioresal -) 10 mg GT BID [facility] Last Admin: 12/21/18 22:43 Dose: 10 mg Clobazam (Onfi -) 5 mg PO AM [facility] Last Admin: 12/22/18 06:29 Dose: 5 mg Clonazepam (Klonopin -) 1.5 mg GT TID [facility] Last Admin: 12/22/18 06:29 Dose: 1.5 mg Diazepam (Diastat Rectal Gel -) 10 mg RC PRN PRN PRN Reason: <Seizures> Heparin Sodium (Porcine) (Heparin -) 5,000 unit SQ BID [facility] Last Admin: 12/21/18 22:42 Dose: 5,000 unit Sodium Chloride (Normal Saline -) 1,000 mls @ 75 mls/hr IV ASDIR [facility] Last Admin: 12/22/18 05:42 Dose: 75 mls/hr Piperacillin Sod/Tazobactam (Sod 3.375 gm/ Dextrose) 50 mls @ 100 mls/hr IVPB Q8H-IV [facility]; Protocol Last Admin: 12/22/18 02:39 Dose: 100 mls/hr Methylprednisolone Sodium Succinate (Solu-Medrol -) 40 mg IVPUSH Q12H [facility] Last Admin: 12/22/18 02:39 Dose: 40 mg Non-Formulary Medication (Protein Supplement [Promod]) 946 ml PO DAILY [facility] Phenobarbital (Phenobarbital -) 45 mg GT BID [facility] Last Admin: 12/21/18 22:42 Dose: 45 mg - Objective Vital Signs: Vital Signs Temperature 98.6 F 12/22/18 06:00 Pulse Rate 106 H 12/22/18 06:00 Respiratory Rate 18 12/22/18 06:00 Blood Pressure 116/43 L 12/22/18 06:00 O2 Sat by Pulse Oximetry (%) 97 12/21/18 21:00 Constitutional: Yes: No Distress, Calm Cardiovascular: Yes: S1, S2 Respiratory: Yes: Regular, On Nasal O2 Gastrointestinal: Yes: Normal Bowel Sounds, Soft Musculoskeletal: Yes: WNL Extremities: Yes: Other (contracted) Neurological: Yes: Alert, Other Psychiatric: Yes: Other Labs: CBC, BMP 12/20/18 13:00 12/20/18 15:34 INR, PTT INR Cancelled 12/20/18 13:00 Assessment/Plan Problem List - Problems (1) PNA (pneumonia) Code(s): J18.9 - PNEUMONIA, UNSPECIFIED ORGANISM (2) Shortness of breath Code(s): R06.02 - SHORTNESS OF BREATH (3) Acute hypoxemic respiratory failure Code(s): J96.01 - ACUTE RESPIRATORY FAILURE WITH HYPOXIA (4) Asthma Code(s): J45.909 - UNSPECIFIED ASTHMA, UNCOMPLICATED (5) PEG (percutaneous endoscopic gastrostomy) status Code(s): Z93.1 - GASTROSTOMY STATUS (6) Seizure Code(s): R56.9 - UNSPECIFIED CONVULSIONS plan continue iv abx resp support nutrition rest as per the team
[2018-12-22] MEDS: HEPARIN NA (PORCINE) 5,000 UNITS/ML 1ML VIAL SQ SCH ×2 (10:59→22:33)
[2018-12-22] MEDS: PHENobarbital 30 MG TABLET GT SCH (10:59)
[2018-12-22] MEDS: BACLOFEN 10 MG TABLET (FP) GT SCH ×2 (11:00→22:35)
--- NOTE | 2018-12-22 14:12 | PN ---
Progress Note, Physician History of Present Illness: pulmonary awake,alert,-resp distress - Current Medication List Current Medications: Active Medications Albuterol/Ipratropium (Duoneb -) 1 amp NEB Q4H PRN PRN Reason: SHORTNESS OF BREATH Baclofen (Lioresal -) 10 mg GT BID [facility] Last Admin: 12/22/18 11:00 Dose: 10 mg Clobazam (Onfi -) 5 mg PO AM [facility] Last Admin: 12/22/18 06:29 Dose: 5 mg Clonazepam (Klonopin -) 1.5 mg GT TID [facility] Last Admin: 12/22/18 06:29 Dose: 1.5 mg Diazepam (Diastat Rectal Gel -) 10 mg RC PRN PRN PRN Reason: <Seizures> Heparin Sodium (Porcine) (Heparin -) 5,000 unit SQ BID [facility] Last Admin: 12/22/18 10:59 Dose: 5,000 unit Sodium Chloride (Normal Saline -) 1,000 mls @ 75 mls/hr IV ASDIR [facility] Last Admin: 12/22/18 05:42 Dose: 75 mls/hr Piperacillin Sod/Tazobactam (Sod 3.375 gm/ Dextrose) 50 mls @ 100 mls/hr IVPB Q8H-IV [facility]; Protocol Last Admin: 12/22/18 11:00 Dose: 100 mls/hr Methylprednisolone Sodium Succinate (Solu-Medrol -) 40 mg IVPUSH Q12H [facility] Last Admin: 12/22/18 02:39 Dose: 40 mg Non-Formulary Medication (Protein Supplement [Promod]) 946 ml PO DAILY [facility] Phenobarbital (Phenobarbital -) 45 mg GT BID [facility] Last Admin: 12/22/18 10:59 Dose: 45 mg - Objective Vital Signs: Vital Signs Temperature 98.6 F 12/22/18 06:00 Pulse Rate 106 H 12/22/18 06:00 Respiratory Rate 18 12/22/18 06:00 Blood Pressure 116/43 L 12/22/18 06:00 O2 Sat by Pulse Oximetry (%) 97 12/21/18 21:00 Constitutional: Yes: Calm, Thin Eyes: Yes: WNL HENT: Yes: WNL Neck: Yes: WNL Cardiovascular: Yes: Regular Rate and Rhythm, S1, S2 Respiratory: Yes: Rhonchi (few rhonchi) Gastrointestinal: Yes: Normal Bowel Sounds, Soft Extremities: Yes: Shortened, Other (contracted) Edema: No Labs: CBC, BMP 12/20/18 13:00 Assessment/Plan IMP ACUTE HYPOXEMIC RESPIRATORY FAILURE improving PNEUMONIA SEVERE MENTAL RETARDATION CEREBRAL PALSY FUNCTIONAL QUADRAPLEGIA SEIZURES ELEVATED LFTS PLAN ABX PER ID INHALED BRONCHODILATORS O2 TO MAINTAIN O2 SAT >90% MEDROL NIPPV NEEDED ORAL/PHARYNGEAL SUCTIONING ASPIRATION PRECAUTIONS F/U CHEST X-RAYS MONITOR LFTS DR VILLALTA Problem List - Problems (1) Acute hypoxemic respiratory failure Code(s): J96.01 - ACUTE RESPIRATORY FAILURE WITH HYPOXIA (2) Aspiration pneumonitis Code(s): J69.0 - PNEUMONITIS DUE TO INHALATION OF FOOD AND VOMIT (3) Fever Code(s): R50.9 - FEVER, UNSPECIFIED (4) Pneumonia Code(s): J18.9 - PNEUMONIA, UNSPECIFIED ORGANISM (5) Respiratory distress Code(s): R06.03 - ACUTE RESPIRATORY DISTRESS (6) Asthma Code(s): J45.909 - UNSPECIFIED ASTHMA, UNCOMPLICATED (7) Epilepsy Code(s): G40.909 - EPILEPSY, UNSP, NOT INTRACTABLE, WITHOUT STATUS EPILEPTICUS (8) PEG (percutaneous endoscopic gastrostomy) status Code(s): Z93.1 - GASTROSTOMY STATUS (9) Profound mental retardation Code(s): F73 - PROFOUND INTELLECTUAL DISABILITIES (10) Respiratory failure Code(s): J96.90 - RESPIRATORY FAILURE, UNSP, UNSP W HYPOXIA OR HYPERCAPNIA Qualifiers: Chronicity: acute Respiratory failure complication: hypoxia Qualified Code(s): J96.01 - Acute respiratory failure with hypoxia
--- NOTE | 2018-12-22 17:36 | PN ---
Progress Note, Physician - Current Medication List Current Medications: Active Medications Albuterol/Ipratropium (Duoneb -) 1 amp NEB Q4H PRN PRN Reason: SHORTNESS OF BREATH Baclofen (Lioresal -) 10 mg GT BID [facility] Last Admin: 12/22/18 11:00 Dose: 10 mg Clobazam (Onfi -) 5 mg PO AM [facility] Last Admin: 12/22/18 06:29 Dose: 5 mg Clonazepam (Klonopin -) 1.5 mg GT TID [facility] Last Admin: 12/22/18 15:17 Dose: 1.5 mg Diazepam (Diastat Rectal Gel -) 10 mg RC PRN PRN PRN Reason: <Seizures> Heparin Sodium (Porcine) (Heparin -) 5,000 unit SQ BID [facility] Last Admin: 12/22/18 10:59 Dose: 5,000 unit Sodium Chloride (Normal Saline -) 1,000 mls @ 75 mls/hr IV ASDIR [facility] Last Admin: 12/22/18 05:42 Dose: 75 mls/hr Piperacillin Sod/Tazobactam (Sod 3.375 gm/ Dextrose) 50 mls @ 100 mls/hr IVPB Q8H-IV [facility]; Protocol Last Admin: 12/22/18 11:00 Dose: 100 mls/hr Methylprednisolone Sodium Succinate (Solu-Medrol -) 40 mg IVPUSH Q12H [facility] Last Admin: 12/22/18 15:18 Dose: 40 mg Phenobarbital (Phenobarbital -) 45 mg GT BID [facility] Last Admin: 12/22/18 10:59 Dose: 45 mg - Objective Vital Signs: Vital Signs Temperature 100.4 F H 12/22/18 14:42 Pulse Rate 105 H 12/22/18 14:42 Respiratory Rate 18 12/22/18 14:42 Blood Pressure 134/51 L 12/22/18 14:42 O2 Sat by Pulse Oximetry (%) 97 12/21/18 21:00 Constitutional: Yes: No Distress HENT: Yes: Atraumatic Neck: Yes: Supple Cardiovascular: Yes: Regular Rate and Rhythm Respiratory: Yes: Rhonchi Gastrointestinal: Yes: Normal Bowel Sounds Extremities: Yes: Other (contracted) Neurological: Yes: Alert Labs: CBC, BMP 12/20/18 13:00 12/20/18 15:34 INR, PTT INR Cancelled 12/20/18 13:00 Problem List - Problems (1) PNA (pneumonia) Assessment/Plan: iv abx id consult Code(s): J18.9 - PNEUMONIA, UNSPECIFIED ORGANISM (2) Shortness of breath Code(s): R06.02 - SHORTNESS OF BREATH (3) Acute hypoxemic respiratory failure Assessment/Plan: prnnebs steroids oxygen inhalation pulmonary consult Code(s): J96.01 - ACUTE RESPIRATORY FAILURE WITH HYPOXIA (4) Asthma Assessment/Plan: prn duo nebs Code(s): J45.909 - UNSPECIFIED ASTHMA, UNCOMPLICATED (5) PEG (percutaneous endoscopic gastrostomy) status Code(s): Z93.1 - GASTROSTOMY STATUS (6) Seizure Code(s): R56.9 - UNSPECIFIED CONVULSIONS
[2018-12-22] MEDS: lamoTRIgine 100 MG TABLET (FP) PO SCH (22:32)
[2018-12-22] MEDS: RANITIDINE HCL 150 MG TABLET (FP) PO SCH (22:33)
[2018-12-22] MEDS: diazePAM 2 MG TABLET PO SCH (22:33)
[2018-12-23] MEDS ORDERED: PIPERACILLIN/TAZOBACTAM 3.375 GM VIAL IVPB ONE ×3 (02:43→18:44)
[2018-12-23] MEDS ORDERED: DEXTROSE 5%-WATER - 50 ML IVPB ONE ×3 (02:43→18:44)
[2018-12-23] MEDS: diazePAM 2 MG TABLET PO SCH ×3 (02:48→21:34)
[2018-12-23] MEDS: PIPERACILLIN/TAZOB 3.375 GM 3.375 GM in DEXTROSE 5%-WATER - 50 ML IVPB SCH ×3 (02:48→18:00)
[2018-12-23] MEDS: methylPREDNISolone NA SUCC 40 MG/1 ML VIAL IVPUSH SCH (02:48)
[2018-12-23] MEDS: clonazePAM 0.5 MG TABLET GT SCH ×3 (06:52→23:25)
[2018-12-23] MEDS: lamoTRIgine 100 MG TABLET (FP) PO SCH ×3 (06:52→21:36)
[2018-12-23 08:14] LABS: HEMATOCRIT 36.2 % (35.4-49); HEMOGLOBIN 12.3 GM/dL (11.7-16.9); MCH 33.9 pg (25.7-33.7); MEAN CELL VOLUME 99.7 fl (80-96); PLATELET COUNT 165 K/MM3 (134-434); RBC 3.63 M/mm3 (4.00-5.60); RDW 16.2 % (11.9-15.9); WHITE BLOOD COUNT 12.2 K/mm3 (4.0-10.0)
[2018-12-23 08:15] LABS: BASO % 0.2 % (0-2.0); EOS % 1.3 % (0-4.5); LYMPH % 25.8 % (8-40); MEAN PLT VOLUME 10.7 fl (7.5-11.1); MONO % 3.4 % (3.8-10.2); NEUT % 69.3 % (42.8-82.8)
[2018-12-23 08:37] LABS: BILIRUBIN,TOTAL 0.3 mg/dL (0.2-1); BLOOD UREA NITROGEN 9.8 mg/dL (7-18); CALCIUM 8.7 mg/dL (8.5-10.1); CREATININE 0.6 mg/dL (0.55-1.3); POTASSIUM 3.4 mmol/L (3.5-5.1); TOT PROT 7.5 g/dl (6.4-8.2)
[2018-12-23] MEDS ORDERED: PT OWN MED DRAWER 7, Y5N ONE (10:27)
[2018-12-23] MEDS: RANITIDINE HCL 150 MG TABLET (FP) PO SCH ×2 (10:51→21:36)
[2018-12-23] MEDS: HEPARIN NA (PORCINE) 5,000 UNITS/ML 1ML VIAL SQ SCH ×2 (10:51→21:34)
[2018-12-23] MEDS: BACLOFEN 10 MG TABLET (FP) GT SCH ×2 (10:51→21:35)
--- NOTE | 2018-12-23 12:45 | PN ---
Progress Note, Physician History of Present Illness: pulmonary awake,alert,comfortable,less congested - Current Medication List Current Medications: Active Medications Albuterol/Ipratropium (Duoneb -) 1 amp NEB Q4H PRN PRN Reason: SHORTNESS OF BREATH Baclofen (Lioresal -) 10 mg GT BID [facility] Last Admin: 12/23/18 10:51 Dose: 10 mg Clonazepam (Klonopin -) 1.5 mg GT TID [facility] Last Admin: 12/23/18 06:52 Dose: 1.5 mg Diazepam (Diastat Rectal Gel -) 10 mg RC PRN PRN PRN Reason: <Seizures> Diazepam (Valium -) 2 mg PO Q8H [facility] Last Admin: 12/23/18 10:51 Dose: 2 mg Heparin Sodium (Porcine) (Heparin -) 5,000 unit SQ BID [facility] Last Admin: 12/23/18 10:51 Dose: 5,000 unit Piperacillin Sod/Tazobactam (Sod 3.375 gm/ Dextrose) 50 mls @ 100 mls/hr IVPB Q8H-IV [facility]; Protocol Last Admin: 12/23/18 10:51 Dose: 100 mls/hr Lamotrigine (Lamictal -) 100 mg PO TID [facility] Last Admin: 12/23/18 06:52 Dose: 100 mg Methylprednisolone Sodium Succinate (Solu-Medrol -) 40 mg IVPUSH Q12H [facility] Last Admin: 12/23/18 02:48 Dose: 40 mg Ranitidine HCl (Zantac -) 150 mg PO BID [facility] Last Admin: 12/23/18 10:51 Dose: 150 mg - Objective Vital Signs: Vital Signs Temperature 98 F 12/23/18 10:52 Pulse Rate 67 12/23/18 10:52 Respiratory Rate 16 12/23/18 10:52 Blood Pressure 112/46 L 12/23/18 10:52 O2 Sat by Pulse Oximetry (%) 96 12/23/18 09:00 Constitutional: Yes: Calm, Thin Eyes: Yes: WNL HENT: Yes: WNL Neck: Yes: WNL Cardiovascular: Yes: Regular Rate and Rhythm, S1, S2 Respiratory: Yes: Rhonchi (few scattered rhonchi) Gastrointestinal: Yes: Normal Bowel Sounds, Soft Extremities: Yes: Shortened, Other (contracted) Edema: No Labs: CBC, BMP 12/23/18 07:08 12/23/18 07:08 INR, PTT INR Cancelled 12/20/18 13:00 Assessment/Plan IMP ACUTE HYPOXEMIC RESPIRATORY FAILURE improving PNEUMONIA SEVERE MENTAL RETARDATION CEREBRAL PALSY FUNCTIONAL QUADRAPLEGIA SEIZURES ELEVATED LFTS IMPROVING PLAN ABX PER ID INHALED BRONCHODILATORS O2 TO MAINTAIN O2 SAT >90% MEDROL taper NIPPV NEEDED ORAL/PHARYNGEAL SUCTIONING ASPIRATION PRECAUTIONS F/U CHEST X-RAYS MONITOR LFTS DR VILLALTA Problem List - Problems (1) Acute hypoxemic respiratory failure Code(s): J96.01 - ACUTE RESPIRATORY FAILURE WITH HYPOXIA (2) Aspiration pneumonitis Code(s): J69.0 - PNEUMONITIS DUE TO INHALATION OF FOOD AND VOMIT (3) Fever Code(s): R50.9 - FEVER, UNSPECIFIED (4) Pneumonia Code(s): J18.9 - PNEUMONIA, UNSPECIFIED ORGANISM (5) Respiratory distress Code(s): R06.03 - ACUTE RESPIRATORY DISTRESS (6) Asthma Code(s): J45.909 - UNSPECIFIED ASTHMA, UNCOMPLICATED (7) Epilepsy Code(s): G40.909 - EPILEPSY, UNSP, NOT INTRACTABLE, WITHOUT STATUS EPILEPTICUS (8) PEG (percutaneous endoscopic gastrostomy) status Code(s): Z93.1 - GASTROSTOMY STATUS (9) Profound mental retardation Code(s): F73 - PROFOUND INTELLECTUAL DISABILITIES (10) Respiratory failure Code(s): J96.90 - RESPIRATORY FAILURE, UNSP, UNSP W HYPOXIA OR HYPERCAPNIA Qualifiers: Chronicity: acute Respiratory failure complication: hypoxia Qualified Code(s): J96.01 - Acute respiratory failure with hypoxia
--- NOTE | 2018-12-23 15:06 | PN ---
Progress Note, Physician - Current Medication List Current Medications: Active Medications Albuterol/Ipratropium (Duoneb -) 1 amp NEB Q4H PRN PRN Reason: SHORTNESS OF BREATH Baclofen (Lioresal -) 10 mg GT BID [facility] Last Admin: 12/23/18 10:51 Dose: 10 mg Clonazepam (Klonopin -) 1.5 mg GT TID [facility] Last Admin: 12/23/18 06:52 Dose: 1.5 mg Diazepam (Diastat Rectal Gel -) 10 mg RC PRN PRN PRN Reason: <Seizures> Diazepam (Valium -) 2 mg PO Q8H [facility] Last Admin: 12/23/18 10:51 Dose: 2 mg Heparin Sodium (Porcine) (Heparin -) 5,000 unit SQ BID [facility] Last Admin: 12/23/18 10:51 Dose: 5,000 unit Piperacillin Sod/Tazobactam (Sod 3.375 gm/ Dextrose) 50 mls @ 100 mls/hr IVPB Q8H-IV [facility]; Protocol Last Admin: 12/23/18 10:51 Dose: 100 mls/hr Lamotrigine (Lamictal -) 100 mg PO TID [facility] Last Admin: 12/23/18 06:52 Dose: 100 mg Methylprednisolone Sodium Succinate (Solu-Medrol -) 40 mg IVPUSH DAILY [facility] Ranitidine HCl (Zantac -) 150 mg PO BID [facility] Last Admin: 12/23/18 10:51 Dose: 150 mg - Objective Vital Signs: Vital Signs Temperature 98 F 12/23/18 10:52 Pulse Rate 67 12/23/18 10:52 Respiratory Rate 16 12/23/18 10:52 Blood Pressure 112/46 L 12/23/18 10:52 O2 Sat by Pulse Oximetry (%) 96 12/23/18 09:00 Constitutional: Yes: No Distress HENT: Yes: Atraumatic Neck: Yes: Supple Cardiovascular: Yes: Regular Rate and Rhythm Respiratory: Yes: Rhonchi Gastrointestinal: Yes: Normal Bowel Sounds, Other (peg in place) Edema: No Neurological: Yes: Alert Labs: CBC, BMP 12/23/18 07:08 12/23/18 07:08 INR, PTT INR Cancelled 12/20/18 13:00 Problem List - Problems (1) PNA (pneumonia) Assessment/Plan: iv abx id consult cxs negative Code(s): J18.9 - PNEUMONIA, UNSPECIFIED ORGANISM (2) Shortness of breath Code(s): R06.02 - SHORTNESS OF BREATH (3) Acute hypoxemic respiratory failure Assessment/Plan: prnnebs steroids oxygen inhalation pulmonary consult Code(s): J96.01 - ACUTE RESPIRATORY FAILURE WITH HYPOXIA (4) Asthma Assessment/Plan: prn duo nebs Code(s): J45.909 - UNSPECIFIED ASTHMA, UNCOMPLICATED (5) PEG (percutaneous endoscopic gastrostomy) status Code(s): Z93.1 - GASTROSTOMY STATUS (6) Seizure Code(s): R56.9 - UNSPECIFIED CONVULSIONS
--- NOTE | 2018-12-23 16:03 | PN ---
Progress Note, Physician History of Present Illness: patient looks more comfortable more awake and alert - Current Medication List Current Medications: Active Medications Albuterol/Ipratropium (Duoneb -) 1 amp NEB Q4H PRN PRN Reason: SHORTNESS OF BREATH Baclofen (Lioresal -) 10 mg GT BID [facility] Last Admin: 12/23/18 10:51 Dose: 10 mg Clonazepam (Klonopin -) 1.5 mg GT TID [facility] Last Admin: 12/23/18 06:52 Dose: 1.5 mg Diazepam (Diastat Rectal Gel -) 10 mg RC PRN PRN PRN Reason: <Seizures> Diazepam (Valium -) 2 mg PO Q8H [facility] Last Admin: 12/23/18 10:51 Dose: 2 mg Heparin Sodium (Porcine) (Heparin -) 5,000 unit SQ BID [facility] Last Admin: 12/23/18 10:51 Dose: 5,000 unit Piperacillin Sod/Tazobactam (Sod 3.375 gm/ Dextrose) 50 mls @ 100 mls/hr IVPB Q8H-IV [facility]; Protocol Last Admin: 12/23/18 10:51 Dose: 100 mls/hr Lamotrigine (Lamictal -) 100 mg PO TID [facility] Last Admin: 12/23/18 06:52 Dose: 100 mg Methylprednisolone Sodium Succinate (Solu-Medrol -) 40 mg IVPUSH DAILY [facility] Ranitidine HCl (Zantac -) 150 mg PO BID [facility] Last Admin: 12/23/18 10:51 Dose: 150 mg - Objective Vital Signs: Vital Signs Temperature 98.2 F 12/23/18 15:24 Pulse Rate 67 12/23/18 10:52 Respiratory Rate 18 12/23/18 15:24 Blood Pressure 133/68 12/23/18 15:24 O2 Sat by Pulse Oximetry (%) 96 12/23/18 09:00 Constitutional: Yes: No Distress, Calm Cardiovascular: Yes: S1, S2 Respiratory: Yes: Regular, Poor Air Entry (bases) Gastrointestinal: Yes: Normal Bowel Sounds, Soft, Other Musculoskeletal: Yes: WNL Extremities: Yes: Other (contracted) Neurological: Yes: Alert Labs: CBC, BMP 12/23/18 07:08 12/23/18 07:08 INR, PTT INR Cancelled 12/20/18 13:00 Assessment/Plan Problem List - Problems (1) PNA (pneumonia) Code(s): J18.9 - PNEUMONIA, UNSPECIFIED ORGANISM (2) Shortness of breath Code(s): R06.02 - SHORTNESS OF BREATH (3) Acute hypoxemic respiratory failure Code(s): J96.01 - ACUTE RESPIRATORY FAILURE WITH HYPOXIA (4) Asthma Code(s): J45.909 - UNSPECIFIED ASTHMA, UNCOMPLICATED (5) PEG (percutaneous endoscopic gastrostomy) status Code(s): Z93.1 - GASTROSTOMY STATUS (6) Seizure Code(s): R56.9 - UNSPECIFIED CONVULSIONS plan continue iv abx resp support nutrition rest as per the team
[2018-12-24] MEDS ORDERED: DEXTROSE 5%-WATER - 50 ML IVPB ONE ×3 (01:17→18:07)
[2018-12-24] MEDS ORDERED: PIPERACILLIN/TAZOBACTAM 3.375 GM VIAL IVPB ONE ×3 (01:17→18:06)
[2018-12-24] MEDS: PIPERACILLIN/TAZOB 3.375 GM 3.375 GM in DEXTROSE 5%-WATER - 50 ML IVPB SCH ×3 (01:41→18:47)
[2018-12-24] MEDS: diazePAM 2 MG TABLET PO SCH ×3 (05:15→20:52)
[2018-12-24] MEDS: lamoTRIgine 100 MG TABLET (FP) PO SCH ×3 (05:16→21:50)
[2018-12-24] MEDS: clonazePAM 0.5 MG TABLET GT SCH ×3 (06:35→21:50)
[2018-12-24] MEDS: HEPARIN NA (PORCINE) 5,000 UNITS/ML 1ML VIAL SQ SCH ×2 (09:55→21:50)
[2018-12-24] MEDS: RANITIDINE HCL 150 MG TABLET (FP) PO SCH ×2 (09:56→21:50)
[2018-12-24] MEDS: BACLOFEN 10 MG TABLET (FP) GT SCH ×2 (09:56→21:50)
[2018-12-24] MEDS ORDERED: methylPREDNISolone NA SUCC 40 MG/1 ML VIAL IVPUSH SCH (10:00)
--- NOTE | 2018-12-24 10:25 | PN ---
Progress Note, Physician History of Present Illness: patient events noted was sob now on face mask - Current Medication List Current Medications: Active Medications Albuterol/Ipratropium (Duoneb -) 1 amp NEB Q4H PRN PRN Reason: SHORTNESS OF BREATH Baclofen (Lioresal -) 10 mg GT BID [facility] Last Admin: 12/24/18 09:56 Dose: 10 mg Clonazepam (Klonopin -) 1.5 mg GT TID [facility] Last Admin: 12/24/18 06:35 Dose: 1.5 mg Diazepam (Diastat Rectal Gel -) 10 mg RC PRN PRN PRN Reason: <Seizures> Diazepam (Valium -) 2 mg PO Q8H [facility] Last Admin: 12/24/18 05:15 Dose: 2 mg Heparin Sodium (Porcine) (Heparin -) 5,000 unit SQ BID [facility] Last Admin: 12/24/18 09:55 Dose: 5,000 unit Piperacillin Sod/Tazobactam (Sod 3.375 gm/ Dextrose) 50 mls @ 100 mls/hr IVPB Q8H-IV [facility]; Protocol Last Admin: 12/24/18 01:41 Dose: 100 mls/hr Lamotrigine (Lamictal -) 100 mg PO TID [facility] Last Admin: 12/24/18 05:16 Dose: 100 mg Methylprednisolone Sodium Succinate (Solu-Medrol -) 40 mg IVPUSH DAILY [facility] Last Admin: 12/24/18 09:56 Dose: 40 mg Ranitidine HCl (Zantac -) 150 mg PO BID [facility] Last Admin: 12/24/18 09:56 Dose: 150 mg - Objective Vital Signs: Vital Signs Temperature 97.0 F L 12/24/18 06:00 Pulse Rate 45 L 12/24/18 06:00 Respiratory Rate 20 12/24/18 06:00 Blood Pressure 96/43 L 12/24/18 06:00 O2 Sat by Pulse Oximetry (%) 96 12/23/18 21:00 Constitutional: Yes: No Distress, Calm Cardiovascular: Yes: S1, S2 Respiratory: Yes: Poor Air Entry, Other (on face mask) Gastrointestinal: Yes: Normal Bowel Sounds, Soft Musculoskeletal: Yes: WNL Extremities: Yes: Other (contracted) Neurological: Yes: Other Labs: CBC, BMP 12/23/18 07:08 12/23/18 07:08 INR, PTT INR Cancelled 12/20/18 13:00 Assessment/Plan Problem List - Problems (1) PNA (pneumonia) Code(s): J18.9 - PNEUMONIA, UNSPECIFIED ORGANISM (2) Shortness of breath Code(s): R06.02 - SHORTNESS OF BREATH (3) Acute hypoxemic respiratory failure Code(s): J96.01 - ACUTE RESPIRATORY FAILURE WITH HYPOXIA (4) Asthma Code(s): J45.909 - UNSPECIFIED ASTHMA, UNCOMPLICATED (5) PEG (percutaneous endoscopic gastrostomy) status Code(s): Z93.1 - GASTROSTOMY STATUS (6) Seizure Code(s): R56.9 - UNSPECIFIED CONVULSIONS plan iv abx nutrition resp support close watch monitor temp pattern
--- NOTE | 2018-12-24 13:52 | PN ---
Progress Note, Physician History of Present Illness: PULMONARY AWAKE,-RESP DISTRESS,FIO2 INCREASED TO 50%VM SECONDARY TO HYPOXEMIA - Current Medication List Current Medications: Active Medications Albuterol/Ipratropium (Duoneb -) 1 amp NEB Q4H PRN PRN Reason: SHORTNESS OF BREATH Baclofen (Lioresal -) 10 mg GT BID [facility] Last Admin: 12/24/18 09:56 Dose: 10 mg Clonazepam (Klonopin -) 1.5 mg GT TID [facility] Last Admin: 12/24/18 06:35 Dose: 1.5 mg Diazepam (Diastat Rectal Gel -) 10 mg RC PRN PRN PRN Reason: <Seizures> Diazepam (Valium -) 2 mg PO Q8H [facility] Last Admin: 12/24/18 12:53 Dose: 2 mg Heparin Sodium (Porcine) (Heparin -) 5,000 unit SQ BID [facility] Last Admin: 12/24/18 09:55 Dose: 5,000 unit Piperacillin Sod/Tazobactam (Sod 3.375 gm/ Dextrose) 50 mls @ 100 mls/hr IVPB Q8H-IV [facility]; Protocol Last Admin: 12/24/18 10:28 Dose: 100 mls/hr Lamotrigine (Lamictal -) 100 mg PO TID [facility] Last Admin: 12/24/18 05:16 Dose: 100 mg Methylprednisolone Sodium Succinate (Solu-Medrol -) 40 mg IVPUSH DAILY [facility] Last Admin: 12/24/18 09:56 Dose: 40 mg Ranitidine HCl (Zantac -) 150 mg PO BID [facility] Last Admin: 12/24/18 09:56 Dose: 150 mg - Objective Vital Signs: Vital Signs Temperature 98.4 F 12/24/18 10:00 Pulse Rate 99 H 12/24/18 10:00 Respiratory Rate 20 12/24/18 10:00 Blood Pressure 103/51 L 12/24/18 10:00 O2 Sat by Pulse Oximetry (%) 96 12/23/18 21:00 Constitutional: Yes: Calm, Thin Eyes: Yes: WNL HENT: Yes: WNL Neck: Yes: WNL Cardiovascular: Yes: Regular Rate and Rhythm, S1, S2 Respiratory: Yes: Rhonchi (FEW RHONCHI) Gastrointestinal: Yes: Normal Bowel Sounds, Soft Extremities: Yes: Shortened, Other (CONTRACTED) Labs: CBC, BMP 12/23/18 07:08 Assessment/Plan IMP ACUTE HYPOXEMIC RESPIRATORY FAILURE improving PNEUMONIA SEVERE MENTAL RETARDATION CEREBRAL PALSY FUNCTIONAL QUADRAPLEGIA SEIZURES ELEVATED LFTS IMPROVING PLAN ABX PER ID INHALED BRONCHODILATORS O2 TO MAINTAIN O2 SAT >90% PREDNISONE NIPPV NEEDED ORAL/PHARYNGEAL SUCTIONING ASPIRATION PRECAUTIONS F/U CHEST X-RAY TODAY MONITOR LFTS DR VILLALTA Problem List - Problems (1) Acute hypoxemic respiratory failure Code(s): J96.01 - ACUTE RESPIRATORY FAILURE WITH HYPOXIA (2) Aspiration pneumonitis Code(s): J69.0 - PNEUMONITIS DUE TO INHALATION OF FOOD AND VOMIT (3) Fever Code(s): R50.9 - FEVER, UNSPECIFIED (4) Pneumonia Code(s): J18.9 - PNEUMONIA, UNSPECIFIED ORGANISM (5) Respiratory distress Code(s): R06.03 - ACUTE RESPIRATORY DISTRESS (6) Asthma Code(s): J45.909 - UNSPECIFIED ASTHMA, UNCOMPLICATED (7) Epilepsy Code(s): G40.909 - EPILEPSY, UNSP, NOT INTRACTABLE, WITHOUT STATUS EPILEPTICUS (8) PEG (percutaneous endoscopic gastrostomy) status Code(s): Z93.1 - GASTROSTOMY STATUS (9) Profound mental retardation Code(s): F73 - PROFOUND INTELLECTUAL DISABILITIES (10) Respiratory failure Code(s): J96.90 - RESPIRATORY FAILURE, UNSP, UNSP W HYPOXIA OR HYPERCAPNIA Qualifiers: Chronicity: acute Respiratory failure complication: hypoxia Qualified Code(s): J96.01 - Acute respiratory failure with hypoxia
--- NOTE | 2018-12-24 13:55 | PN ---
Progress Note, Physician - Current Medication List Current Medications: Active Medications Albuterol/Ipratropium (Duoneb -) 1 amp NEB Q4H PRN PRN Reason: SHORTNESS OF BREATH Baclofen (Lioresal -) 10 mg GT BID [facility] Last Admin: 12/24/18 09:56 Dose: 10 mg Clonazepam (Klonopin -) 1.5 mg GT TID [facility] Last Admin: 12/24/18 06:35 Dose: 1.5 mg Diazepam (Diastat Rectal Gel -) 10 mg RC PRN PRN PRN Reason: <Seizures> Diazepam (Valium -) 2 mg PO Q8H [facility] Last Admin: 12/24/18 12:53 Dose: 2 mg Heparin Sodium (Porcine) (Heparin -) 5,000 unit SQ BID [facility] Last Admin: 12/24/18 09:55 Dose: 5,000 unit Piperacillin Sod/Tazobactam (Sod 3.375 gm/ Dextrose) 50 mls @ 100 mls/hr IVPB Q8H-IV [facility]; Protocol Last Admin: 12/24/18 10:28 Dose: 100 mls/hr Lamotrigine (Lamictal -) 100 mg PO TID [facility] Last Admin: 12/24/18 05:16 Dose: 100 mg Prednisone (Deltasone -) 40 mg PO DAILY [facility] Ranitidine HCl (Zantac -) 150 mg PO BID [facility] Last Admin: 12/24/18 09:56 Dose: 150 mg - Objective Vital Signs: Vital Signs Temperature 98.4 F 12/24/18 10:00 Pulse Rate 99 H 12/24/18 10:00 Respiratory Rate 20 12/24/18 10:00 Blood Pressure 103/51 L 12/24/18 10:00 O2 Sat by Pulse Oximetry (%) 96 12/23/18 21:00 Constitutional: Yes: No Distress HENT: Yes: Atraumatic Neck: Yes: Supple Cardiovascular: Yes: Regular Rate and Rhythm Respiratory: Yes: Rhonchi, Wheezes Gastrointestinal: Yes: Normal Bowel Sounds, Other (peg in place) Extremities: Yes: Other (contracyed) Neurological: Yes: Alert Labs: CBC, BMP 12/23/18 07:08 12/23/18 07:08 INR, PTT INR Cancelled 12/20/18 13:00 Problem List - Problems (1) PNA (pneumonia) Assessment/Plan: iv abx id consult cxs negative Code(s): J18.9 - PNEUMONIA, UNSPECIFIED ORGANISM (2) Shortness of breath Code(s): R06.02 - SHORTNESS OF BREATH (3) Acute hypoxemic respiratory failure Code(s): J96.01 - ACUTE RESPIRATORY FAILURE WITH HYPOXIA (4) Asthma Code(s): J45.909 - UNSPECIFIED ASTHMA, UNCOMPLICATED (5) PEG (percutaneous endoscopic gastrostomy) status Code(s): Z93.1 - GASTROSTOMY STATUS (6) Seizure Code(s): R56.9 - UNSPECIFIED CONVULSIONS
[2018-12-24] MEDS ORDERED: BISACODYL 10 MG SUPP.RECT RC PRN (20:00)
[2018-12-24] MEDS: ALBUTEROL SO4 0.083% IH SOL 2.5 MG/3 ML VIAL.NEB. NEB SCH (20:40)
[2018-12-24] MEDS: ACETYLCYSTEINE 20% 200MG/ML 4 ML VIAL *FOR ORAL / INH USE ONLY NEB SCH (20:40)
[2018-12-25] MEDS ORDERED: DEXTROSE 5%-WATER - 50 ML IVPB ONE ×3 (02:32→16:51)
[2018-12-25] MEDS ORDERED: PIPERACILLIN/TAZOBACTAM 3.375 GM VIAL IVPB ONE ×3 (02:32→16:51)
[2018-12-25] MEDS: PIPERACILLIN/TAZOB 3.375 GM 3.375 GM in DEXTROSE 5%-WATER - 50 ML IVPB SCH ×3 (02:59→17:09)
[2018-12-25] MEDS: diazePAM 2 MG TABLET PO SCH ×2 (03:00→10:22)
[2018-12-25] MEDS: clonazePAM 0.5 MG TABLET GT SCH ×3 (06:39→21:34)
[2018-12-25] MEDS: lamoTRIgine 100 MG TABLET (FP) PO SCH ×3 (06:39→21:34)
[2018-12-25] MEDS: ACETYLCYSTEINE 20% 200MG/ML 4 ML VIAL *FOR ORAL / INH USE ONLY NEB SCH ×3 (08:00→20:35)
[2018-12-25] MEDS: ALBUTEROL SO4 0.083% IH SOL 2.5 MG/3 ML VIAL.NEB. NEB SCH ×4 (08:39→20:35)
[2018-12-25] MEDS ORDERED: PT OWN MED DRAWER 7, Y5N ONE (10:17)
[2018-12-25] MEDS: predniSONE 20 MG TABLET (UD) PO SCH (10:22)
[2018-12-25] MEDS: RANITIDINE HCL 150 MG TABLET (FP) PO SCH ×2 (10:23→21:35)
[2018-12-25] MEDS: BACLOFEN 10 MG TABLET (FP) GT SCH ×2 (10:23→21:35)
[2018-12-25] MEDS: HEPARIN NA (PORCINE) 5,000 UNITS/ML 1ML VIAL SQ SCH ×2 (10:25→21:33)
--- NOTE | 2018-12-25 12:03 | PN ---
Progress Note (short form) - Note Progress Note: Mildly tachypneic but in NAD on 50% VM O2. No acute events overnight. Intake & Output 12/22/18 12/23/18 12/24/18 12/25/18 23:59 23:59 23:59 23:59 Intake Total 2665 1340 660 710 Balance 2665 1340 660 710 Last Vital Signs Temp Pulse Resp BP Pulse Ox 99.1 F 81 18 114/59 L 93 L 12/25/18 06:00 12/25/18 06:00 12/25/18 06:00 12/25/18 06:00 12/24/18 21:00 Active Medications Acetylcysteine (Mucomyst 20 Oral / Inh Use Only*) 200 mg NEB RQID [facility] Last Admin: 12/25/18 08:00 Dose: 200 mg Albuterol Sulfate (Ventolin 0.083% Nebulizer Soln -) 1 amp NEB RQID [facility] Last Admin: 12/25/18 08:39 Dose: 1 amp Baclofen (Lioresal -) 10 mg GT BID [facility] Last Admin: 12/25/18 10:23 Dose: 10 mg Bisacodyl (Dulcolax Suppository -) 10 mg RC DAILY PRN PRN Reason: CONSTIPATION Clonazepam (Klonopin -) 1.5 mg GT TID [facility] Last Admin: 12/25/18 06:39 Dose: 1.5 mg Diazepam (Diastat Rectal Gel -) 10 mg RC PRN PRN PRN Reason: <Seizures> Diazepam (Valium -) 2 mg PO Q8H [facility] Last Admin: 12/25/18 10:22 Dose: 2 mg Heparin Sodium (Porcine) (Heparin -) 5,000 unit SQ BID [facility] Last Admin: 12/25/18 10:25 Dose: 5,000 unit Piperacillin Sod/Tazobactam (Sod 3.375 gm/ Dextrose) 50 mls @ 100 mls/hr IVPB Q8H-IV [facility]; Protocol Last Admin: 12/25/18 10:23 Dose: 100 mls/hr Lamotrigine (Lamictal -) 100 mg PO TID [facility] Last Admin: 12/25/18 06:39 Dose: 100 mg Prednisone (Deltasone -) 40 mg PO DAILY [facility] Last Admin: 12/25/18 10:22 Dose: 40 mg Ranitidine HCl (Zantac -) 150 mg PO BID [facility] Last Admin: 12/25/18 10:23 Dose: 150 mg Constitutional: Yes: Calm, Thin Eyes: Yes: WNL HENT: Yes: WNL Neck: Yes: WNL Cardiovascular: Yes: Regular Rate and Rhythm, S1, S2 Respiratory: Yes: Rhonchi (FEW RHONCHI) Gastrointestinal: Yes: Normal Bowel Sounds, Soft Extremities: Yes: Shortened, Other (CONTRACTED) Labs: Problem List - Problems (1) Acute hypoxemic respiratory failure Code(s): J96.01 - ACUTE RESPIRATORY FAILURE WITH HYPOXIA (2) Aspiration pneumonitis Code(s): J69.0 - PNEUMONITIS DUE TO INHALATION OF FOOD AND VOMIT (3) Fever Code(s): R50.9 - FEVER, UNSPECIFIED (4) Pneumonia Code(s): J18.9 - PNEUMONIA, UNSPECIFIED ORGANISM (5) Respiratory distress Code(s): R06.03 - ACUTE RESPIRATORY DISTRESS (6) Asthma Code(s): J45.909 - UNSPECIFIED ASTHMA, UNCOMPLICATED (7) Epilepsy Code(s): G40.909 - EPILEPSY, UNSP, NOT INTRACTABLE, WITHOUT STATUS EPILEPTICUS (8) PEG (percutaneous endoscopic gastrostomy) status Code(s): Z93.1 - GASTROSTOMY STATUS (9) Profound mental retardation Code(s): F73 - PROFOUND INTELLECTUAL DISABILITIES (10) Respiratory failure Code(s): J96.90 - RESPIRATORY FAILURE, UNSP, UNSP W HYPOXIA OR HYPERCAPNIA Qualifiers: Chronicity: acute Respiratory failure complication: hypoxia Qualified Code(s): J96.01 - Acute respiratory failure with hypoxia Assessment/Plan IMP ACUTE HYPOXEMIC RESPIRATORY FAILURE improving PNEUMONIA SEVERE MENTAL RETARDATION CEREBRAL PALSY FUNCTIONAL QUADRAPLEGIA SEIZURES ELEVATED LFTS IMPROVING PLAN ABX PER ID INHALED BRONCHODILATORS O2 TO MAINTAIN O2 SAT >90% PREDNISONE NIPPV NEEDED ORAL/PHARYNGEAL SUCTIONING ASPIRATION PRECAUTIONS F/U CHEST X-RAY TODAY MONITOR LFTS Dr Price
--- NOTE | 2018-12-25 13:39 | PN ---
Progress Note, Physician History of Present Illness: Pt seen and examined, chart reviewed. He is without respiratory distress, currently afebrile. Nonverbal at baseline. - Current Medication List Current Medications: Active Medications Acetylcysteine (Mucomyst 20 Oral / Inh Use Only*) 200 mg NEB RQID [facility] Last Admin: 12/25/18 12:00 Dose: 200 mg Albuterol Sulfate (Ventolin 0.083% Nebulizer Soln -) 1 amp NEB RQID [facility] Last Admin: 12/25/18 12:00 Dose: 1 amp Baclofen (Lioresal -) 10 mg GT BID [facility] Last Admin: 12/25/18 10:23 Dose: 10 mg Bisacodyl (Dulcolax Suppository -) 10 mg RC DAILY PRN PRN Reason: CONSTIPATION Clonazepam (Klonopin -) 1.5 mg GT TID [facility] Last Admin: 12/25/18 06:39 Dose: 1.5 mg Diazepam (Diastat Rectal Gel -) 10 mg RC PRN PRN PRN Reason: <Seizures> Diazepam (Valium -) 2 mg PO Q8H [facility] Last Admin: 12/25/18 10:22 Dose: 2 mg Heparin Sodium (Porcine) (Heparin -) 5,000 unit SQ BID [facility] Last Admin: 12/25/18 10:25 Dose: 5,000 unit Piperacillin Sod/Tazobactam (Sod 3.375 gm/ Dextrose) 50 mls @ 100 mls/hr IVPB Q8H-IV [facility]; Protocol Last Admin: 12/25/18 10:23 Dose: 100 mls/hr Lamotrigine (Lamictal -) 100 mg PO TID [facility] Last Admin: 12/25/18 06:39 Dose: 100 mg Prednisone (Deltasone -) 40 mg PO DAILY [facility] Last Admin: 12/25/18 10:22 Dose: 40 mg Ranitidine HCl (Zantac -) 150 mg PO BID [facility] Last Admin: 12/25/18 10:23 Dose: 150 mg - Objective Vital Signs: Vital Signs Temperature 98.2 F 12/25/18 09:50 Pulse Rate 63 12/25/18 09:50 Respiratory Rate 18 12/25/18 09:50 Blood Pressure 100/55 L 12/25/18 09:50 O2 Sat by Pulse Oximetry (%) 93 L 12/24/18 21:00 Constitutional: Yes: No Distress, Calm Eyes: Yes: Conjunctiva Clear Cardiovascular: Yes: Regular Rate and Rhythm Respiratory: Yes: Rhonchi Gastrointestinal: Yes: Normal Bowel Sounds, Soft Genitourinary: Yes: WNL Musculoskeletal: Yes: Other (contracted) Integumentary: Yes: WNL Neurological: Yes: Other (nonverbal, responsive to touch) Labs: CBC, BMP 12/23/18 07:08 12/23/18 07:08 INR, PTT INR Cancelled 12/20/18 13:00 Microbiology 12/20/18 13:00 Blood - Peripheral Venous Blood Culture - Final NO GROWTH AFTER 5 DAYS INCUBATION 12/20/18 13:31 Blood - Peripheral Venous Blood Culture - Preliminary NO GROWTH OBTAINED AFTER 96 HOURS, INCUBATION TO CONTINUE FOR 1 DAYS. - ....Imaging Chest X-ray: Report Reviewed Problem List - Problems (1) PNA (pneumonia) Code(s): J18.9 - PNEUMONIA, UNSPECIFIED ORGANISM (2) Acute hypoxemic respiratory failure Code(s): J96.01 - ACUTE RESPIRATORY FAILURE WITH HYPOXIA (3) Asthma Code(s): J45.909 - UNSPECIFIED ASTHMA, UNCOMPLICATED (4) Epilepsy Code(s): G40.909 - EPILEPSY, UNSP, NOT INTRACTABLE, WITHOUT STATUS EPILEPTICUS (5) PEG (percutaneous endoscopic gastrostomy) status Code(s): Z93.1 - GASTROSTOMY STATUS (6) Profound mental retardation Code(s): F73 - PROFOUND INTELLECTUAL DISABILITIES (7) Seizure Code(s): R56.9 - UNSPECIFIED CONVULSIONS (8) Transaminitis Code(s): R74.0 - NONSPEC ELEV OF LEVELS OF TRANSAMNS & LACTIC ACID DEHYDRGNSE (9) Pneumonia Code(s): J18.9 - PNEUMONIA, UNSPECIFIED ORGANISM Qualifiers: Pneumonia type: due to unspecified organism Assessment/Plan PNA suspect aspiration Acute hypoxemic respiratory failure Cerebral palsy/mental restardation Functional quadriplegia Epilepsy -- continue Zosyn -- on O2, nebulizers, prednisone -- monitor temps, intermittently mildly elevated -- pt currently without distress
--- NOTE | 2018-12-25 19:01 | PN ---
Progress Note, Physician - Current Medication List Current Medications: Active Medications Acetylcysteine (Mucomyst 20 Oral / Inh Use Only*) 200 mg NEB RQID [facility] Last Admin: 12/25/18 12:00 Dose: 200 mg Albuterol Sulfate (Ventolin 0.083% Nebulizer Soln -) 1 amp NEB RQID [facility] Last Admin: 12/25/18 15:27 Dose: 1 amp Baclofen (Lioresal -) 10 mg GT BID [facility] Last Admin: 12/25/18 10:23 Dose: 10 mg Bisacodyl (Dulcolax Suppository -) 10 mg RC DAILY PRN PRN Reason: CONSTIPATION Clonazepam (Klonopin -) 1.5 mg GT TID [facility] Last Admin: 12/25/18 14:20 Dose: 1.5 mg Diazepam (Diastat Rectal Gel -) 10 mg RC PRN PRN PRN Reason: <Seizures> Diazepam (Valium -) 2 mg PO Q8H [facility] Last Admin: 12/25/18 10:22 Dose: 2 mg Heparin Sodium (Porcine) (Heparin -) 5,000 unit SQ BID [facility] Last Admin: 12/25/18 10:25 Dose: 5,000 unit Piperacillin Sod/Tazobactam (Sod 3.375 gm/ Dextrose) 50 mls @ 100 mls/hr IVPB Q8H-IV [facility]; Protocol Last Admin: 12/25/18 17:09 Dose: 100 mls/hr Lamotrigine (Lamictal -) 100 mg PO TID [facility] Last Admin: 12/25/18 14:20 Dose: 100 mg Prednisone (Deltasone -) 40 mg PO DAILY [facility] Last Admin: 12/25/18 10:22 Dose: 40 mg Ranitidine HCl (Zantac -) 150 mg PO BID [facility] Last Admin: 12/25/18 10:23 Dose: 150 mg - Objective Vital Signs: Vital Signs Temperature 97.8 F 12/25/18 18:00 Pulse Rate 62 12/25/18 18:00 Respiratory Rate 18 12/25/18 18:00 Blood Pressure 100/51 L 12/25/18 18:00 O2 Sat by Pulse Oximetry (%) 97 12/25/18 09:50 Constitutional: Yes: No Distress HENT: Yes: Atraumatic Neck: Yes: Supple Cardiovascular: Yes: Regular Rate and Rhythm Respiratory: Yes: Rhonchi, Wheezes Gastrointestinal: Yes: Normal Bowel Sounds Extremities: Yes: WNL Labs: CBC, BMP 12/23/18 07:08 12/23/18 07:08 INR, PTT INR Cancelled 12/20/18 13:00 Problem List - Problems (1) PNA (pneumonia) Assessment/Plan: iv abx id consult cxs negative Code(s): J18.9 - PNEUMONIA, UNSPECIFIED ORGANISM (2) Shortness of breath Code(s): R06.02 - SHORTNESS OF BREATH (3) Acute hypoxemic respiratory failure Assessment/Plan: prnnebs steroids oxygen inhalation pulmonary consult Code(s): J96.01 - ACUTE RESPIRATORY FAILURE WITH HYPOXIA (4) Asthma Assessment/Plan: prn duo nebs Code(s): J45.909 - UNSPECIFIED ASTHMA, UNCOMPLICATED (5) PEG (percutaneous endoscopic gastrostomy) status Code(s): Z93.1 - GASTROSTOMY STATUS (6) Seizure Code(s): R56.9 - UNSPECIFIED CONVULSIONS
[2018-12-26] MEDS ORDERED: PIPERACILLIN/TAZOBACTAM 3.375 GM VIAL IVPB ONE ×2 (00:04→11:11)
[2018-12-26] MEDS ORDERED: DEXTROSE 5%-WATER - 50 ML IVPB ONE ×2 (00:04→11:11)
[2018-12-26] MEDS: PIPERACILLIN/TAZOB 3.375 GM 3.375 GM in DEXTROSE 5%-WATER - 50 ML IVPB SCH ×3 (01:09→17:17)
[2018-12-26] MEDS: lamoTRIgine 100 MG TABLET (FP) PO SCH ×3 (05:19→22:21)
[2018-12-26] MEDS: clonazePAM 0.5 MG TABLET GT SCH ×3 (05:19→22:20)
[2018-12-26] MEDS: ACETYLCYSTEINE 20% 200MG/ML 4 ML VIAL *FOR ORAL / INH USE ONLY NEB SCH ×5 (08:14→20:37)
[2018-12-26] MEDS: ALBUTEROL SO4 0.083% IH SOL 2.5 MG/3 ML VIAL.NEB. NEB SCH ×4 (08:48→20:37)
[2018-12-26] MEDS: HEPARIN NA (PORCINE) 5,000 UNITS/ML 1ML VIAL SQ SCH ×2 (11:00→22:21)
[2018-12-26] MEDS: RANITIDINE HCL 150 MG TABLET (FP) PO SCH ×2 (11:00→22:21)
[2018-12-26] MEDS: BACLOFEN 10 MG TABLET (FP) GT SCH ×2 (11:00→22:21)
[2018-12-26] MEDS: predniSONE 20 MG TABLET (UD) PO SCH (11:00)
[2018-12-26 12:16] LABS: BASO % 0.4 % (0-2.0); EOS % 1.7 % (0-4.5); LYMPH % 48.3 % (8-40); MCH 34.2 pg (25.7-33.7); MCHC 34.3 g/dl (32.0-35.9); MEAN CELL VOLUME 99.6 fl (80-96); MEAN PLT VOLUME 9.6 fl (7.5-11.1); MONO % 10.6 % (3.8-10.2); PLATELET COUNT 268 K/MM3 (134-434); RBC 3.52 M/mm3 (4.00-5.60)
[2018-12-26 12:31] LABS: ALBUMIN 3.1 g/dl (3.4-5.0); BILIRUBIN,TOTAL 0.2 mg/dL (0.2-1); BLOOD UREA NITROGEN 12.4 mg/dL (7-18); CALCIUM 9.4 mg/dL (8.5-10.1); CREATININE 0.7 mg/dL (0.55-1.3); POTASSIUM 3.5 mmol/L (3.5-5.1); TOT PROT 7.8 g/dl (6.4-8.2)
--- NOTE | 2018-12-26 13:16 | PN ---
Progress Note (short form) - Note Progress Note: Mildly tachypneic but in NAD on 50% VM O2. No acute events overnight. Intake & Output 12/23/18 12/24/18 12/25/18 12/26/18 23:59 23:59 23:59 23:59 Intake Total 3062 512 4947 880 Balance 0137 097 8420 880 Last Vital Signs Temp Pulse Resp BP Pulse Ox 98.7 F 70 18 96/60 97 12/26/18 09:00 12/26/18 09:00 12/26/18 09:00 12/26/18 09:00 12/25/18 21:00 Active Medications Acetylcysteine (Mucomyst 20 Oral / Inh Use Only*) 200 mg NEB RQID [facility] Last Admin: 12/26/18 12:02 Dose: 200 mg Albuterol Sulfate (Ventolin 0.083% Nebulizer Soln -) 1 amp NEB RQID [facility] Last Admin: 12/26/18 12:02 Dose: 1 amp Baclofen (Lioresal -) 10 mg GT BID [facility] Last Admin: 12/26/18 11:00 Dose: 10 mg Bisacodyl (Dulcolax Suppository -) 10 mg RC DAILY PRN PRN Reason: CONSTIPATION Last Admin: 12/26/18 11:16 Dose: 10 mg Clonazepam (Klonopin -) 1.5 mg GT TID [facility] Last Admin: 12/26/18 05:19 Dose: 1.5 mg Heparin Sodium (Porcine) (Heparin -) 5,000 unit SQ BID [facility] Last Admin: 12/26/18 11:00 Dose: 5,000 unit Piperacillin Sod/Tazobactam (Sod 3.375 gm/ Dextrose) 50 mls @ 100 mls/hr IVPB Q8H-IV [facility]; Protocol Last Admin: 12/26/18 11:00 Dose: 100 mls/hr Lamotrigine (Lamictal -) 100 mg PO TID [facility] Last Admin: 12/26/18 05:19 Dose: 100 mg Prednisone (Deltasone -) 40 mg PO DAILY [facility] Last Admin: 12/26/18 11:00 Dose: 40 mg Ranitidine HCl (Zantac -) 150 mg PO BID [facility] Last Admin: 12/26/18 11:00 Dose: 150 mg Constitutional: Yes: Mildly tachypneic at rest, NAD Eyes: Yes: WNL HENT: Yes: WNL Neck: Yes: WNL Cardiovascular: Yes: Regular Rate and Rhythm, S1, S2 Respiratory: Yes: Bilateral Rhonchi, no wheeze Gastrointestinal: Yes: Normal Bowel Sounds, Soft Extremities: Yes: Shortened, Other (CONTRACTED) Labs: Laboratory Results - last 24 hr 12/26/18 12/26/18 11:25 11:25 WBC 6.0 RBC 3.52 L Hgb 12.0 Hct 35.0 L MCV 99.6 H MCH 34.2 H MCHC 34.3 RDW 16.0 H Plt Count 268 D MPV 9.6 D Absolute Neuts (auto) 2.3 Neutrophils % 39.0 L D Lymphocytes % 48.3 H D Monocytes % 10.6 H D Eosinophils % 1.7 Basophils % 0.4 Nucleated RBC % 0 Sodium 141 Potassium 3.5 Chloride 102 Carbon Dioxide 33 H Anion Gap 6 L BUN 12.4 Creatinine 0.7 Est GFR (CKD-EPI)AfAm 155.25 Est GFR (CKD-EPI)NonAf 133.96 Random Glucose 128 H Calcium 9.4 Total Bilirubin 0.2 AST 78 H ALT 124 H Alkaline Phosphatase 347 H Total Protein 7.8 Albumin 3.1 L Problem List - Problems (1) Acute hypoxemic respiratory failure Code(s): J96.01 - ACUTE RESPIRATORY FAILURE WITH HYPOXIA (2) Aspiration pneumonitis Code(s): J69.0 - PNEUMONITIS DUE TO INHALATION OF FOOD AND VOMIT (3) Fever Code(s): R50.9 - FEVER, UNSPECIFIED (4) Pneumonia Code(s): J18.9 - PNEUMONIA, UNSPECIFIED ORGANISM (5) Respiratory distress Code(s): R06.03 - ACUTE RESPIRATORY DISTRESS (6) Asthma Code(s): J45.909 - UNSPECIFIED ASTHMA, UNCOMPLICATED (7) Epilepsy Code(s): G40.909 - EPILEPSY, UNSP, NOT INTRACTABLE, WITHOUT STATUS EPILEPTICUS (8) PEG (percutaneous endoscopic gastrostomy) status Code(s): Z93.1 - GASTROSTOMY STATUS (9) Profound mental retardation Code(s): F73 - PROFOUND INTELLECTUAL DISABILITIES (10) Respiratory failure Code(s): J96.90 - RESPIRATORY FAILURE, UNSP, UNSP W HYPOXIA OR HYPERCAPNIA Qualifiers: Chronicity: acute Respiratory failure complication: hypoxia Qualified Code(s): J96.01 - Acute respiratory failure with hypoxia Assessment/Plan IMP ACUTE HYPOXEMIC RESPIRATORY FAILURE improving PNEUMONIA SEVERE MENTAL RETARDATION CEREBRAL PALSY FUNCTIONAL QUADRAPLEGIA SEIZURES ELEVATED LFTS IMPROVING PLAN ABX PER ID INHALED BRONCHODILATORS O2 TO MAINTAIN O2 SAT >90% PREDNISONE NIPPV IF NEEDED ORAL/PHARYNGEAL SUCTIONING ASPIRATION PRECAUTIONS Dr Price
--- NOTE | 2018-12-26 17:26 | PN ---
Progress Note, Physician History of Present Illness: Pt is calm, without respiratory distress. Afebrile. - Current Medication List Current Medications: Active Medications Acetylcysteine (Mucomyst 20 Oral / Inh Use Only*) 200 mg NEB RQID [facility] Last Admin: 12/26/18 15:26 Dose: 200 mg Albuterol Sulfate (Ventolin 0.083% Nebulizer Soln -) 1 amp NEB RQID [facility] Last Admin: 12/26/18 15:27 Dose: 1 amp Amoxicillin/Clavulanate Potassium (Augmentin - 875mg Tablet) 1 tab PO BID@0800, 1730 [facility] Baclofen (Lioresal -) 10 mg GT BID [facility] Last Admin: 12/26/18 11:00 Dose: 10 mg Bisacodyl (Dulcolax Suppository -) 10 mg RC DAILY PRN PRN Reason: CONSTIPATION Last Admin: 12/26/18 11:16 Dose: 10 mg Clonazepam (Klonopin -) 1.5 mg GT TID [facility] Last Admin: 12/26/18 13:56 Dose: 1.5 mg Heparin Sodium (Porcine) (Heparin -) 5,000 unit SQ BID [facility] Last Admin: 12/26/18 11:00 Dose: 5,000 unit Lamotrigine (Lamictal -) 100 mg PO TID [facility] Last Admin: 12/26/18 13:57 Dose: 100 mg Prednisone (Deltasone -) 40 mg PO DAILY [facility] Last Admin: 12/26/18 11:00 Dose: 40 mg Ranitidine HCl (Zantac -) 150 mg PO BID [facility] Last Admin: 12/26/18 11:00 Dose: 150 mg - Objective Vital Signs: Vital Signs Temperature 98.2 F 12/26/18 15:21 Pulse Rate 72 12/26/18 15:21 Respiratory Rate 18 12/26/18 15:21 Blood Pressure 105/55 L 12/26/18 15:21 O2 Sat by Pulse Oximetry (%) 97 12/26/18 09:00 Constitutional: Yes: No Distress Cardiovascular: Yes: Regular Rate and Rhythm Respiratory: Yes: Diminished (poor inspiratory effort) Gastrointestinal: Yes: Normal Bowel Sounds, Soft Genitourinary: Yes: WNL Edema: No Integumentary: Yes: WNL Labs: CBC, BMP 12/26/18 11:25 12/26/18 11:25 INR, PTT INR Cancelled 12/20/18 13:00 Microbiology 12/20/18 13:31 Blood - Peripheral Venous Blood Culture - Final NO GROWTH AFTER 5 DAYS INCUBATION 12/20/18 13:00 Blood - Peripheral Venous Blood Culture - Final NO GROWTH AFTER 5 DAYS INCUBATION - ....Imaging Chest X-ray: Report Reviewed Problem List - Problems (1) PNA (pneumonia) Code(s): J18.9 - PNEUMONIA, UNSPECIFIED ORGANISM (2) Acute hypoxemic respiratory failure Code(s): J96.01 - ACUTE RESPIRATORY FAILURE WITH HYPOXIA (3) Asthma Code(s): J45.909 - UNSPECIFIED ASTHMA, UNCOMPLICATED (4) Epilepsy Code(s): G40.909 - EPILEPSY, UNSP, NOT INTRACTABLE, WITHOUT STATUS EPILEPTICUS (5) PEG (percutaneous endoscopic gastrostomy) status Code(s): Z93.1 - GASTROSTOMY STATUS (6) Profound mental retardation Code(s): F73 - PROFOUND INTELLECTUAL DISABILITIES (7) Seizure Code(s): R56.9 - UNSPECIFIED CONVULSIONS (8) Transaminitis Code(s): R74.0 - NONSPEC ELEV OF LEVELS OF TRANSAMNS & LACTIC ACID DEHYDRGNSE Assessment/Plan PNA suspect aspiration Acute hypoxemic respiratory failure Cerebral palsy/mental restardation Functional quadriplegia Epilepsy -- will switch to oral antibiotics -- on O2, nebulizers, prednisone -- continue monitor vitals, pt currently stable
[2018-12-26] MEDS: AMOX TR/POT CLAV 875MG/125MG TABLETS (FP) PO SCH (18:16)
--- NOTE | 2018-12-26 19:55 | PN ---
Progress Note, Physician - Current Medication List Current Medications: Active Medications Acetylcysteine (Mucomyst 20 Oral / Inh Use Only*) 200 mg NEB RQID [facility] Last Admin: 12/26/18 15:26 Dose: 200 mg Albuterol Sulfate (Ventolin 0.083% Nebulizer Soln -) 1 amp NEB RQID [facility] Last Admin: 12/26/18 15:27 Dose: 1 amp Amoxicillin/Clavulanate Potassium (Augmentin - 875mg Tablet) 1 tab PO BID@0800, 1730 [facility] Last Admin: 12/26/18 18:16 Dose: 1 tab Baclofen (Lioresal -) 10 mg GT BID [facility] Last Admin: 12/26/18 11:00 Dose: 10 mg Bisacodyl (Dulcolax Suppository -) 10 mg RC DAILY PRN PRN Reason: CONSTIPATION Last Admin: 12/26/18 11:16 Dose: 10 mg Clonazepam (Klonopin -) 1.5 mg GT TID [facility] Last Admin: 12/26/18 13:56 Dose: 1.5 mg Heparin Sodium (Porcine) (Heparin -) 5,000 unit SQ BID [facility] Last Admin: 12/26/18 11:00 Dose: 5,000 unit Lamotrigine (Lamictal -) 100 mg PO TID [facility] Last Admin: 12/26/18 13:57 Dose: 100 mg Prednisone (Deltasone -) 40 mg PO DAILY [facility] Last Admin: 12/26/18 11:00 Dose: 40 mg Ranitidine HCl (Zantac -) 150 mg PO BID [facility] Last Admin: 12/26/18 11:00 Dose: 150 mg - Objective Vital Signs: Vital Signs Temperature 98.2 F 12/26/18 15:21 Pulse Rate 72 12/26/18 15:21 Respiratory Rate 18 12/26/18 15:21 Blood Pressure 105/55 L 12/26/18 15:21 O2 Sat by Pulse Oximetry (%) 97 12/26/18 09:00 Constitutional: Yes: No Distress HENT: Yes: Atraumatic Neck: Yes: Supple Cardiovascular: Yes: Regular Rate and Rhythm Respiratory: Yes: Rhonchi Gastrointestinal: Yes: Other (peg in place) Extremities: Yes: WNL Edema: No Neurological: Yes: Alert Labs: CBC, BMP 12/26/18 11:25 12/26/18 11:25 INR, PTT INR Cancelled 12/20/18 13:00 Problem List - Problems (1) PNA (pneumonia) Assessment/Plan: iv abx id consult cxs negative Code(s): J18.9 - PNEUMONIA, UNSPECIFIED ORGANISM (2) Shortness of breath Code(s): R06.02 - SHORTNESS OF BREATH (3) Acute hypoxemic respiratory failure Assessment/Plan: prnnebs steroids oxygen inhalation pulmonary consult Code(s): J96.01 - ACUTE RESPIRATORY FAILURE WITH HYPOXIA (4) Asthma Assessment/Plan: prn duo nebs Code(s): J45.909 - UNSPECIFIED ASTHMA, UNCOMPLICATED (5) PEG (percutaneous endoscopic gastrostomy) status Code(s): Z93.1 - GASTROSTOMY STATUS (6) Seizure Code(s): R56.9 - UNSPECIFIED CONVULSIONS
[2018-12-27] MEDS: clonazePAM 0.5 MG TABLET GT SCH ×2 (05:20→14:27)
[2018-12-27] MEDS: lamoTRIgine 100 MG TABLET (FP) PO SCH ×3 (05:20→21:06)
[2018-12-27] MEDS: ALBUTEROL SO4 0.083% IH SOL 2.5 MG/3 ML VIAL.NEB. NEB SCH ×4 (07:35→20:30)
[2018-12-27] MEDS: ACETYLCYSTEINE 20% 200MG/ML 4 ML VIAL *FOR ORAL / INH USE ONLY NEB SCH ×4 (07:35→20:30)
[2018-12-27] MEDS: AMOX TR/POT CLAV 875MG/125MG TABLETS (FP) PO SCH ×2 (09:13→17:57)
[2018-12-27] MEDS: predniSONE 20 MG TABLET (UD) PO SCH (09:14)
[2018-12-27] MEDS: HEPARIN NA (PORCINE) 5,000 UNITS/ML 1ML VIAL SQ SCH ×2 (09:14→23:04)
[2018-12-27] MEDS: RANITIDINE HCL 150 MG TABLET (FP) PO SCH ×2 (09:14→21:07)
[2018-12-27] MEDS: BACLOFEN 10 MG TABLET (FP) GT SCH ×2 (09:14→21:06)
--- NOTE | 2018-12-27 12:48 | PN ---
Progress Note, Physician History of Present Illness: patient stable doing well - Current Medication List Current Medications: Active Medications Acetylcysteine (Mucomyst 20 Oral / Inh Use Only*) 200 mg NEB RQID [facility] Last Admin: 12/27/18 11:06 Dose: 200 mg Albuterol Sulfate (Ventolin 0.083% Nebulizer Soln -) 1 amp NEB RQID [facility] Last Admin: 12/27/18 11:07 Dose: 1 amp Amoxicillin/Clavulanate Potassium (Augmentin - 875mg Tablet) 1 tab PO BID@0800, 1730 [facility] Last Admin: 12/27/18 09:13 Dose: 1 tab Baclofen (Lioresal -) 10 mg GT BID [facility] Last Admin: 12/27/18 09:14 Dose: 10 mg Bisacodyl (Dulcolax Suppository -) 10 mg RC DAILY PRN PRN Reason: CONSTIPATION Last Admin: 12/26/18 11:16 Dose: 10 mg Clonazepam (Klonopin -) 1.5 mg GT TID [facility] Last Admin: 12/27/18 05:20 Dose: 1.5 mg Heparin Sodium (Porcine) (Heparin -) 5,000 unit SQ BID [facility] Last Admin: 12/27/18 09:14 Dose: 5,000 unit Lamotrigine (Lamictal -) 100 mg PO TID [facility] Last Admin: 12/27/18 05:20 Dose: 100 mg Prednisone (Deltasone -) 40 mg PO DAILY [facility] Last Admin: 12/27/18 09:14 Dose: 40 mg Ranitidine HCl (Zantac -) 150 mg PO BID [facility] Last Admin: 12/27/18 09:14 Dose: 150 mg - Objective Vital Signs: Vital Signs Temperature 97.4 F L 12/27/18 09:00 Pulse Rate 68 12/27/18 11:10 Respiratory Rate 18 12/27/18 09:00 Blood Pressure 92/51 L 12/27/18 09:00 O2 Sat by Pulse Oximetry (%) 94 L 12/27/18 11:10 Constitutional: Yes: No Distress, Calm Cardiovascular: Yes: S1, S2 Respiratory: Yes: Regular, Poor Air Entry Gastrointestinal: Yes: Normal Bowel Sounds, Soft Extremities: Yes: Other (contracted) Neurological: Yes: Alert, Other Labs: CBC, BMP 12/26/18 11:25 12/26/18 11:25 INR, PTT INR Cancelled 12/20/18 13:00 Assessment/Plan Problem List - Problems (1) PNA (pneumonia) Code(s): J18.9 - PNEUMONIA, UNSPECIFIED ORGANISM (2) Shortness of breath Code(s): R06.02 - SHORTNESS OF BREATH (3) Acute hypoxemic respiratory failure Code(s): J96.01 - ACUTE RESPIRATORY FAILURE WITH HYPOXIA (4) Asthma Code(s): J45.909 - UNSPECIFIED ASTHMA, UNCOMPLICATED (5) PEG (percutaneous endoscopic gastrostomy) status Code(s): Z93.1 - GASTROSTOMY STATUS (6) Seizure Code(s): R56.9 - UNSPECIFIED CONVULSIONS plan continue oral abx close watch
--- NOTE | 2018-12-27 12:54 | PN ---
Progress Note, Physician History of Present Illness: pulmonary awake,alert,comfortable,-resp distress,on nasal o2 - Current Medication List Current Medications: Active Medications Acetylcysteine (Mucomyst 20 Oral / Inh Use Only*) 200 mg NEB RQID [facility] Last Admin: 12/27/18 11:06 Dose: 200 mg Albuterol Sulfate (Ventolin 0.083% Nebulizer Soln -) 1 amp NEB RQID [facility] Last Admin: 12/27/18 11:07 Dose: 1 amp Amoxicillin/Clavulanate Potassium (Augmentin - 875mg Tablet) 1 tab PO BID@0800, 1730 [facility] Last Admin: 12/27/18 09:13 Dose: 1 tab Baclofen (Lioresal -) 10 mg GT BID [facility] Last Admin: 12/27/18 09:14 Dose: 10 mg Bisacodyl (Dulcolax Suppository -) 10 mg RC DAILY PRN PRN Reason: CONSTIPATION Last Admin: 12/26/18 11:16 Dose: 10 mg Clonazepam (Klonopin -) 1.5 mg GT TID [facility] Last Admin: 12/27/18 05:20 Dose: 1.5 mg Heparin Sodium (Porcine) (Heparin -) 5,000 unit SQ BID [facility] Last Admin: 12/27/18 09:14 Dose: 5,000 unit Lamotrigine (Lamictal -) 100 mg PO TID [facility] Last Admin: 12/27/18 05:20 Dose: 100 mg Prednisone (Deltasone -) 40 mg PO DAILY [facility] Last Admin: 12/27/18 09:14 Dose: 40 mg Ranitidine HCl (Zantac -) 150 mg PO BID [facility] Last Admin: 12/27/18 09:14 Dose: 150 mg - Objective Vital Signs: Vital Signs Temperature 97.4 F L 12/27/18 09:00 Pulse Rate 68 12/27/18 11:10 Respiratory Rate 18 12/27/18 09:00 Blood Pressure 92/51 L 12/27/18 09:00 O2 Sat by Pulse Oximetry (%) 94 L 12/27/18 11:10 Constitutional: Yes: Calm, Thin Eyes: Yes: WNL HENT: Yes: WNL Neck: Yes: WNL Cardiovascular: Yes: Regular Rate and Rhythm, S1, S2 Respiratory: Yes: Rhonchi (few rhonchi) Gastrointestinal: Yes: Normal Bowel Sounds, Soft Extremities: Yes: Shortened, Other (contractures) Edema: No Labs: CBC, BMP 12/26/18 11:25 12/26/18 11:25 INR, PTT INR Cancelled 12/20/18 13:00 Assessment/Plan IMP ACUTE HYPOXEMIC RESPIRATORY FAILURE improving PNEUMONIA SEVERE MENTAL RETARDATION CEREBRAL PALSY FUNCTIONAL QUADRAPLEGIA SEIZURES ELEVATED LFTS IMPROVING LEFT LUNG ATELECTASIS IMPROVED PLAN ABX PER ID INHALED BRONCHODILATORS,MUCOMYST O2 TO MAINTAIN O2 SAT >90% PREDNISONE NIPPV NEEDED ORAL/PHARYNGEAL SUCTIONING ASPIRATION PRECAUTIONS MONITOR LFTS CHEST X-RAY TODAY DR VILLALTA Problem List - Problems (1) Acute hypoxemic respiratory failure Code(s): J96.01 - ACUTE RESPIRATORY FAILURE WITH HYPOXIA (2) Aspiration pneumonitis Code(s): J69.0 - PNEUMONITIS DUE TO INHALATION OF FOOD AND VOMIT (3) Fever Code(s): R50.9 - FEVER, UNSPECIFIED (4) Pneumonia Code(s): J18.9 - PNEUMONIA, UNSPECIFIED ORGANISM (5) Respiratory distress Code(s): R06.03 - ACUTE RESPIRATORY DISTRESS (6) Asthma Code(s): J45.909 - UNSPECIFIED ASTHMA, UNCOMPLICATED (7) Epilepsy Code(s): G40.909 - EPILEPSY, UNSP, NOT INTRACTABLE, WITHOUT STATUS EPILEPTICUS (8) PEG (percutaneous endoscopic gastrostomy) status Code(s): Z93.1 - GASTROSTOMY STATUS (9) Profound mental retardation Code(s): F73 - PROFOUND INTELLECTUAL DISABILITIES (10) Respiratory failure Code(s): J96.90 - RESPIRATORY FAILURE, UNSP, UNSP W HYPOXIA OR HYPERCAPNIA Qualifiers: Chronicity: acute Respiratory failure complication: hypoxia Qualified Code(s): J96.01 - Acute respiratory failure with hypoxia
--- NOTE | 2018-12-27 17:24 | PN ---
Progress Note, Physician History of Present Illness: on RA - Current Medication List Current Medications: Active Medications Acetylcysteine (Mucomyst 20 Oral / Inh Use Only*) 200 mg NEB RQID [facility] Last Admin: 12/27/18 15:40 Dose: 200 mg Albuterol Sulfate (Ventolin 0.083% Nebulizer Soln -) 1 amp NEB RQID [facility] Last Admin: 12/27/18 15:40 Dose: 1 amp Amoxicillin/Clavulanate Potassium (Augmentin - 875mg Tablet) 1 tab PO BID@0800, 1730 [facility] Last Admin: 12/27/18 09:13 Dose: 1 tab Baclofen (Lioresal -) 10 mg GT BID [facility] Last Admin: 12/27/18 09:14 Dose: 10 mg Bisacodyl (Dulcolax Suppository -) 10 mg RC DAILY PRN PRN Reason: CONSTIPATION Last Admin: 12/26/18 11:16 Dose: 10 mg Clonazepam (Klonopin -) 1.5 mg GT TID [facility] Last Admin: 12/27/18 14:27 Dose: 1.5 mg Heparin Sodium (Porcine) (Heparin -) 5,000 unit SQ BID [facility] Last Admin: 12/27/18 09:14 Dose: 5,000 unit Lamotrigine (Lamictal -) 100 mg PO TID [facility] Last Admin: 12/27/18 14:28 Dose: 100 mg Prednisone (Deltasone -) 40 mg PO DAILY [facility] Last Admin: 12/27/18 09:14 Dose: 40 mg Ranitidine HCl (Zantac -) 150 mg PO BID [facility] Last Admin: 12/27/18 09:14 Dose: 150 mg - Objective Vital Signs: Vital Signs Temperature 98.3 F 12/27/18 15:43 Pulse Rate 69 12/27/18 15:43 Respiratory Rate 18 12/27/18 15:43 Blood Pressure 119/48 L 12/27/18 15:43 O2 Sat by Pulse Oximetry (%) 94 L 12/27/18 11:10 Constitutional: Yes: No Distress HENT: Yes: Atraumatic Neck: Yes: Supple Cardiovascular: Yes: Regular Rate and Rhythm Respiratory: Yes: CTA Bilaterally Gastrointestinal: Yes: Normal Bowel Sounds Edema: No Neurological: Yes: Other (awake) Labs: CBC, BMP 12/26/18 11:25 12/26/18 11:25 INR, PTT INR Cancelled 12/20/18 13:00 Problem List - Problems (1) PNA (pneumonia) Assessment/Plan: po abx cxs negative Code(s): J18.9 - PNEUMONIA, UNSPECIFIED ORGANISM (2) Shortness of breath Code(s): R06.02 - SHORTNESS OF BREATH (3) Acute hypoxemic respiratory failure Assessment/Plan: prnnebs steroids..po tapering oxygen inhalation pulmonary consult Code(s): J96.01 - ACUTE RESPIRATORY FAILURE WITH HYPOXIA (4) Asthma Assessment/Plan: prn duo nebs Code(s): J45.909 - UNSPECIFIED ASTHMA, UNCOMPLICATED (5) PEG (percutaneous endoscopic gastrostomy) status Code(s): Z93.1 - GASTROSTOMY STATUS (6) Seizure Assessment/Plan: on meds stable Code(s): R56.9 - UNSPECIFIED CONVULSIONS Assessment/Plan dc in am d/w dr jared noyola nurse has to call to let them know bout antibiotics transport via [facility]
[2018-12-27] MEDS: clonazePAM 0.5 MG TABLET PO SCH (23:04)
[2018-12-28] MEDS: clonazePAM 0.5 MG TABLET PO SCH ×2 (05:04→14:14)
[2018-12-28] MEDS: lamoTRIgine 100 MG TABLET (FP) PO SCH ×2 (05:04→14:14)
[2018-12-28] MEDS: ALBUTEROL SO4 0.083% IH SOL 2.5 MG/3 ML VIAL.NEB. NEB SCH ×3 (08:00→16:11)
[2018-12-28] MEDS: ACETYLCYSTEINE 20% 200MG/ML 4 ML VIAL *FOR ORAL / INH USE ONLY NEB SCH ×3 (08:00→16:11)
[2018-12-28] MEDS: AMOX TR/POT CLAV 875MG/125MG TABLETS (FP) PO SCH (08:51)
[2018-12-28] MEDS: RANITIDINE HCL 150 MG TABLET (FP) PO SCH (09:54)
[2018-12-28] MEDS: BACLOFEN 10 MG TABLET (FP) GT SCH (09:54)
[2018-12-28] MEDS: HEPARIN NA (PORCINE) 5,000 UNITS/ML 1ML VIAL SQ SCH (09:54)
[2018-12-28] MEDS: predniSONE 20 MG TABLET (UD) PO SCH (09:55)
[2018-12-28 11:51] VITALS: PULSE 64
--- NOTE | 2018-12-28 13:11 | PN ---
Progress Note, Physician - Current Medication List Current Medications: Active Medications Acetylcysteine (Mucomyst 20 Oral / Inh Use Only*) 200 mg NEB RQID [facility] Last Admin: 12/28/18 11:47 Dose: 200 mg Albuterol Sulfate (Ventolin 0.083% Nebulizer Soln -) 1 amp NEB RQID [facility] Last Admin: 12/28/18 11:47 Dose: 1 amp Amoxicillin/Clavulanate Potassium (Augmentin - 875mg Tablet) 1 tab PO BID@0800, 1730 [facility] Last Admin: 12/28/18 08:51 Dose: 1 tab Baclofen (Lioresal -) 10 mg GT BID [facility] Last Admin: 12/28/18 09:54 Dose: 10 mg Bisacodyl (Dulcolax Suppository -) 10 mg RC DAILY PRN PRN Reason: CONSTIPATION Last Admin: 12/26/18 11:16 Dose: 10 mg Clonazepam (Klonopin -) 1.5 mg PO TID [facility] Last Admin: 12/28/18 05:04 Dose: 1.5 mg Heparin Sodium (Porcine) (Heparin -) 5,000 unit SQ BID [facility] Last Admin: 12/28/18 09:54 Dose: 5,000 unit Lamotrigine (Lamictal -) 100 mg PO TID [facility] Last Admin: 12/28/18 05:04 Dose: 100 mg Prednisone (Deltasone -) 40 mg PO DAILY [facility] Last Admin: 12/28/18 09:55 Dose: 40 mg Ranitidine HCl (Zantac -) 150 mg PO BID [facility] Last Admin: 12/28/18 09:54 Dose: 150 mg - Objective Vital Signs: Vital Signs Temperature 97.3 F L 12/28/18 11:59 Pulse Rate 64 12/28/18 11:48 Respiratory Rate 20 12/28/18 11:48 Blood Pressure 96/61 12/28/18 11:48 O2 Sat by Pulse Oximetry (%) 95 12/27/18 21:00 Labs: CBC, BMP 12/26/18 11:25 12/26/18 11:25 INR, PTT INR Cancelled 12/20/18 13:00
[2018-12-28 14:06] VITALS: BP 91/61
[2018-12-28 14:39] VITALS: TEMP 97.9
--- NOTE | 2018-12-28 16:25 | PN ---
Progress Note, Physician History of Present Illness: pulmonary awake,alert,no distress - Current Medication List Current Medications: Active Medications Acetylcysteine (Mucomyst 20 Oral / Inh Use Only*) 200 mg NEB RQID [facility] Last Admin: 12/28/18 16:11 Dose: 200 mg Albuterol Sulfate (Ventolin 0.083% Nebulizer Soln -) 1 amp NEB RQID [facility] Last Admin: 12/28/18 16:11 Dose: 1 amp Amoxicillin/Clavulanate Potassium (Augmentin - 875mg Tablet) 1 tab PO BID@0800, 1730 [facility] Last Admin: 12/28/18 08:51 Dose: 1 tab Baclofen (Lioresal -) 10 mg GT BID [facility] Last Admin: 12/28/18 09:54 Dose: 10 mg Bisacodyl (Dulcolax Suppository -) 10 mg RC DAILY PRN PRN Reason: CONSTIPATION Last Admin: 12/26/18 11:16 Dose: 10 mg Clonazepam (Klonopin -) 1.5 mg PO TID [facility] Last Admin: 12/28/18 14:14 Dose: Not Given Heparin Sodium (Porcine) (Heparin -) 5,000 unit SQ BID [facility] Last Admin: 12/28/18 09:54 Dose: 5,000 unit Lamotrigine (Lamictal -) 100 mg PO TID [facility] Last Admin: 12/28/18 14:14 Dose: 100 mg Prednisone (Deltasone -) 40 mg PO DAILY [facility] Last Admin: 12/28/18 09:55 Dose: 40 mg Ranitidine HCl (Zantac -) 150 mg PO BID [facility] Last Admin: 12/28/18 09:54 Dose: 150 mg - Objective Vital Signs: Vital Signs Temperature 97.9 F 12/28/18 14:02 Pulse Rate 64 12/28/18 14:02 Respiratory Rate 20 12/28/18 14:02 Blood Pressure 91/61 12/28/18 14:02 O2 Sat by Pulse Oximetry (%) 95 12/27/18 21:00 Constitutional: Yes: Calm, Thin Eyes: Yes: WNL HENT: Yes: WNL Neck: Yes: WNL Cardiovascular: Yes: Regular Rate and Rhythm, S1, S2 Respiratory: Yes: Rhonchi (few rhonchi) Gastrointestinal: Yes: Normal Bowel Sounds, Soft Extremities: Yes: Shortened, Other (contracted) Labs: Assessment/Plan IMP ACUTE HYPOXEMIC RESPIRATORY FAILURE IMPROVED PNEUMONIA IMPROVED SEVERE MENTAL RETARDATION CEREBRAL PALSY FUNCTIONAL QUADRAPLEGIA SEIZURES ELEVATED LFTS IMPROVING LEFT LUNG ATELECTASIS IMPROVED PLAN INHALED BRONCHODILATORS,MUCOMYST O2 TO MAINTAIN O2 SAT >90% PREDNISONE TAPER OUTPATIENT ORAL/PHARYNGEAL SUCTIONING ASPIRATION PRECAUTIONS DR VILLALTA Problem List - Problems (1) Acute hypoxemic respiratory failure Code(s): J96.01 - ACUTE RESPIRATORY FAILURE WITH HYPOXIA (2) Aspiration pneumonitis Code(s): J69.0 - PNEUMONITIS DUE TO INHALATION OF FOOD AND VOMIT (3) Fever Code(s): R50.9 - FEVER, UNSPECIFIED (4) Pneumonia Code(s): J18.9 - PNEUMONIA, UNSPECIFIED ORGANISM (5) Respiratory distress Code(s): R06.03 - ACUTE RESPIRATORY DISTRESS (6) Asthma Code(s): J45.909 - UNSPECIFIED ASTHMA, UNCOMPLICATED (7) Epilepsy Code(s): G40.909 - EPILEPSY, UNSP, NOT INTRACTABLE, WITHOUT STATUS EPILEPTICUS (8) PEG (percutaneous endoscopic gastrostomy) status Code(s): Z93.1 - GASTROSTOMY STATUS (9) Profound mental retardation Code(s): F73 - PROFOUND INTELLECTUAL DISABILITIES (10) Respiratory failure Code(s): J96.90 - RESPIRATORY FAILURE, UNSP, UNSP W HYPOXIA OR HYPERCAPNIA Qualifiers: Chronicity: acute Respiratory failure complication: hypoxia Qualified Code(s): J96.01 - Acute respiratory failure with hypoxia
--- NOTE | 2018-12-28 16:32 | DS ---
Physical Examination Vital Signs: Vital Signs Temperature 97.9 F 12/28/18 14:02 Pulse Rate 64 12/28/18 14:02 Respiratory Rate 20 12/28/18 14:02 Blood Pressure 91/61 12/28/18 14:02 O2 Sat by Pulse Oximetry (%) 95 12/27/18 21:00 Constitutional: Yes: Calm HENT: Yes: Atraumatic Neck: Yes: Supple Cardiovascular: Yes: Regular Rate and Rhythm Respiratory: Yes: Rhonchi Gastrointestinal: Yes: Normal Bowel Sounds, Other (peg in place) Edema: No Labs: CBC, BMP 12/26/18 11:25 12/26/18 11:25 Discharge Summary Reason For Visit: PNEUMONIA Current Active Problems PNA (pneumonia) (Acute) Shortness of breath (Acute) - Instructions Disposition: HOME - Home Medications Comprehensive Discharge Medication List: Ambulatory Orders Acyclovir 400 mg GT BID 04/25/17 Baclofen 10 mg GT BID 04/25/17 Clobazam [Onfi -] 10 mg GT HS 04/25/17 Clonazepam 1.5 mg GT TID 04/25/17 Fluticasone Propionate [Flovent Diskus] 50 mcg IH DAILY 04/25/17 Ipratropium/Albuterol Sulfate [Iprat-Albut 0.5-3(2.5) mg/3 ml] 3 ml IH Q6H 04/25 Lactobacillus Acidophilus [Acidophilus] 1 each GT HS 04/25/17 Lamotrigine 200 mg GT BID 04/25/17 Magnesium Hydrox 2400MG/30Ml [Milk of Magnesia -] 20 ml GT BID 04/25/17 Multivitamin [Poly-Vitamin] 1 each GT HS 04/25/17 Phenobarbital 48.6 mg GT BID 04/25/17 Ranitidine [Zantac -] 75 mg GT BID #0 tab 03/29/18 Diazepam Rectal Gel [Diastat Rectal Gel -] 10 mg MS PRN PRN 05/23/18 Fructooligosaccharides/Polydex [Fiber-Stat 15 gm/30 ml Liquid] 15 gm GT HS 05/23 Protein Supplement [Promod] 946 ml PO DAILY 05/23/18 Sodium Phosphate/Na Biphos [Fleet Adult Rectal Enema -] 133 ml RC ONCE PRN 05/23 Clobazam [Onfi] 5 mg PO AM 06/29/19 Acyclovir [Zovirax -] 400 mg GT BID #60 tablet 11/12/18 Amox-Tr/K Cl [Augmentin Suspension -] 500 mg PO TIDCM #120 ml 11/12/18 Clobazam [Onfi -] 5 mg GT DAILY tablet MDD 1 11/12/18 Clobazam [Onfi -] 5 mg GT DAILY tablet MDD 1 11/12/18 Enoxaparin [Lovenox -] 40 mg SQ DAILY disp.syrin 11/12/18 Lactobacillus Acidophilus [Bacid -] 1 tab PO HS tab 11/12/18 Magnesium Hydrox 2400MG/30Ml [Milk of Magnesia -] 20 ml GT BID cup 11/12/18 Mometasone Furoate [Asmanex 220Mcg -] 1 puff IH HS inhaler 11/12/18 Sodium Phosphate,[place]-Dibasic [Fleet Enema] 133 ml RC PRN 12/24/18 Amox-Tr/K Cl [Augmentin 875-125mg Tablet -] 1 tab PO BID@0800,1730 #14 tablet predniSONE [Deltasone -] 40 mg PO DAILY #30 tablet 12/27/18 [place] home
== END 2018-12-28 16:54 | disposition home or self-care (01) | DRG 137 ==
LOC: JER 11:13 → JERBED 16:19 → J5S 23:41
PROVIDERS: ADMIT Internal Medicine; ATTEND Internal Medicine
PROC: 3E0F7GC Introduction of Other Therapeutic Substance into Respiratory Tract, Via Natural or Artificial Opening (ICD-10-PCS; principal; 2018-12-20)
DX: J69.0 Pneumonitis due to inhalation of food and vomit (principal); J96.01 Acute respiratory failure with hypoxia; F73 Profound intellectual disabilities; Z93.1 Gastrostomy status; G80.8 Other cerebral palsy; I45.10 Unspecified right bundle-branch block; J98.11 Atelectasis; M24.552 Contracture, left hip; M24.551 Contracture, right hip; J45.909 Unspecified asthma, uncomplicated; G40.909 Epilepsy, unspecified, not intractable, without status epilepticus; K21.9 Gastro-esophageal reflux disease without esophagitis; K59.00 Constipation, unspecified; R74.8 Abnormal levels of other serum enzymes; Z86.61 Personal history of infections of the central nervous system
CPT/HCPCS: 36415; 71045-TC-FY; 80053; 82803; 83605; 84484; 85025; 87040; 93005; 93010; 94640; 94761; 99284-25; J0475; J1644; J7030

== ENCOUNTER 2019-02-05 18:29 | Inpatient (IN) | payer OTHER ==
[2019-02-05] MEDS ORDERED: SODIUM CHLORIDE 1,000 ML IV ONE (18:51)
--- NOTE | 2019-02-05 19:59 | PDOC ---
History of Present Illness - General Chief Complaint: Seizure Stated Complaint: SEIZURE Time Seen by Provider: 02/05/19 18:44 History Source: Patient, Care Provider, Detention Records Exam Limitations: Clinical Condition, Physical Impairment - History of Present Illness Initial Comments: Baljinder Lanier is a 23 yo M w a pmh of intellectual disability, hip contracture, cerebral palsy, epilepsy, asthma , GERD, herpes encephalitis, non-verbal at baseline presents to the ED from [place] after it was noticed that the patient experienced a seizure. The MI gave the patient diastat at [place]. When EMS arrived the patient was no longer seizing. The aeronautics teacher who is here with the patient states that he had a seizure and has not been experiencing any symptoms since. PCP: Rob Tate PSH: G-Tube, l hip pinning, r hip osteotomy Social Hx: [facility] resident Allergies: NKA, NKDA Past History - Past Medical History Allergies/Adverse Reactions: Allergies Allergy/AdvReac Type Severity Reaction Status Date / Time No Known Allergies Allergy Verified 02/05/19 18:53 Home Medications: Ambulatory Orders Acyclovir 400 mg GT BID 04/25/17 Baclofen 10 mg GT BID 04/25/17 Clobazam [Onfi -] 10 mg GT HS 04/25/17 Clonazepam 1.5 mg GT TID 04/25/17 Lactobacillus Acidophilus [Acidophilus] 1 each GT HS 04/25/17 Lamotrigine 200 mg GT BID 04/25/17 Multivitamin [Poly-Vitamin] 1 each GT HS 04/25/17 Phenobarbital 48.6 mg GT BID 04/25/17 Ranitidine [Zantac -] 75 mg GT BID #0 tab 03/29/18 Diazepam Rectal Gel [Diastat Rectal Gel -] 7.5 mg [place] PRN PRN 05/23/18 Fructooligosaccharides/Polydex [Fiber-Stat 15 gm/30 ml Liquid] 15 gm GT HS 05/23 Protein Supplement [Promod] 946 ml PO DAILY 05/23/18 Albuterol 2.5/Ipratropium 0.5 [Duoneb -] 1 neb IH QID 02/05/19 Budesonide [Pulmicort 0.25 mg -] 1 neb PO BID 02/05/19 Clobazam [Sympazan] 5 mg GT DAILY 02/05/19 Fluticasone Prop 0.05% Nasal [Flonase -] 2 spray NS AM 02/05/19 Magnesium Hydrox 2400MG/30Ml [Milk of Magnesia -] 20 ml GT BID 02/05/19 Anemia: No Asthma: Yes Cancer: No Cardiac Disorders: No CVA: No COPD: No CHF: No Dementia: No Diabetes: No GI Disorders: Yes (DYSPHAGIA. CONSTIPATION. GERD.) Disorders: No HTN: No Hypercholesterolemia: No Liver Disease: No Psychiatric Problems: Yes (MR) Seizures: Yes (EPILEPSY) Thyroid Disease: No - Surgical History Abdominal Surgery: Yes (GT PLACEMENT) Appendectomy: No Cardiac Surgery: No Cholecystectomy: No Lung Surgery: No Neurologic Surgery: No Orthopedic Surgery: Yes (l hip pinning, r hip osteotomy) - Psycho Social/Smoking Cessation Hx Smoking Status: No Smoking History: Never smoked Have you smoked in the past 12 months: No Number of Cigarettes Smoked Daily: 0 Hx Alcohol Use: No Drug/Substance Use Hx: No Substance Use Type: None Hx Substance Use Treatment: No Review of Systems - Review of Systems Able to Perform ROS?: No (Non-verbal) *Physical Exam - Vital Signs Last Vital Signs Temp Pulse Resp BP Pulse Ox 94.4 F L 79 28 H 112/77 87 L 02/05/19 18:50 02/05/19 18:50 02/05/19 18:50 02/05/19 18:50 02/05/19 18:50 - Physical Exam Comments: GENERAL: Contracted, non-verbal. HEENT: Normocephalic, atraumatic. PERRL. CARDIOVASCULAR: Normal S1, S2. Regular rate and rhythm. PULMONARY: Bilateral crackles. No wheezing or rhonchi. ABDOMEN: Soft, non-distended, non-tender. EXTREMITIES: limited ROM in all four extremities. Diffusely contracted. SKIN: Warm, dry. No rash NEUROLOGICAL: No focal neurological deficits. ED Treatment Course - LABORATORY CBC & Chemistry Diagram: 02/05/19 19:45 02/05/19 19:45 - RADIOLOGY Radiology Studies Ordered: Category Date Time Status CHEST X-RAY PORTABLE* [RAD] Stat Radiology 02/05/19 18:51 Ordered Medical Decision Making - Medical Decision Making Baljinder Lanier is a 23 yo M w a pmh of intellectual disability, hip contracture, cerebral palsy, epilepsy, asthma , GERD, herpes encephalitis, non-verbal at baseline presents to the ED from [place] after it was noticed that the patient experienced a seizure. The NH gave the patient diastat at [place]. When EMS arrived the patient was no longer seizing. The aeronautics teacher who is here with the patient states that he had a seizure and has not been experiencing any symptoms since. VS: Vital Signs Temp Pulse Resp BP Pulse Ox 94.4 F L 79 28 H 112/77 87 L 02/05/19 18:50 02/05/19 18:50 02/05/19 18:50 02/05/19 18:50 02/05/19 18:50 DDx IBNLT: Seizure, medication error, PNA, sepsis, electrolyte/metabolic disturbance Plan: Labs, CXR, EKG, IVNS, keppra load, re-assess Labs: CBC,CMP WBC 10.9 K/mm3 (4.0-10.0) H 02/05/19 19:45 RBC 4.63 M/mm3 (4.00-5.60) 02/05/19 19:45 Hgb 15.8 GM/dL (11.7-16.9) 02/05/19 19:45 Hct 46.9 % (35.4-49) D 02/05/19 19:45 MCV 101.3 fl (80-96) H 02/05/19 19:45 MCH 34.1 pg (25.7-33.7) H 02/05/19 19:45 MCHC 33.7 g/dl (32.0-35.9) 02/05/19 19:45 RDW 16.1 % (11.9-15.9) H 02/05/19 19:45 Plt Count 162 K/MM3 (134-434) D 02/05/19 19:45 MPV 11.4 fl (7.5-11.1) H D 02/05/19 19:45 Absolute Neuts (auto) 8.4 K/mm3 (1.5-8.0) H 02/05/19 19:45 Neutrophils % 76.7 % (42.8-82.8) D 02/05/19 19:45 Lymphocytes % 13.0 % (8-40) D 02/05/19 19:45 Monocytes % 8.5 % (3.8-10.2) 02/05/19 19:45 Eosinophils % 1.7 % (0-4.5) 02/05/19 19:45 Basophils % 0.1 % (0-2.0) 02/05/19 19:45 Nucleated RBC % 0 % (0-0) 02/05/19 19:45 Sodium 137 mmol/L (136-145) 02/05/19 19:45 Potassium 4.3 mmol/L (3.5-5.1) 02/05/19 19:45 Chloride 101 mmol/L (98-107) 02/05/19 19:45 Carbon Dioxide 29 mmol/L (21-32) 02/05/19 19:45 Anion Gap 6 MMOL/L (8-16) L 02/05/19 19:45 BUN 17.7 mg/dL (7-18) 02/05/19 19:45 Creatinine 0.5 mg/dL (0.55-1.3) L 02/05/19 19:45 Est GFR (CKD-EPI)AfAm 178.28 02/05/19 19:45 Est GFR (CKD-EPI)NonAf 153.82 02/05/19 19:45 Random Glucose 74 mg/dL (74-106) 02/05/19 19:45 Lactic Acid 1.1 mmol/L (0.4-2.0) 02/05/19 19:45 Calcium 9.6 mg/dL (8.5-10.1) 02/05/19 19:45 Total Bilirubin 0.2 mg/dL (0.2-1) 02/05/19 19:45 AST 149 U/L (15-37) H 02/05/19 19:45 ALT 158 U/L (13-61) H 02/05/19 19:45 Alkaline Phosphatase 489 U/L (45-117) H 02/05/19 19:45 Creatine Kinase 50 U/L (26-308) 02/05/19 19:45 Total Protein 9.1 g/dl (6.4-8.2) H 02/05/19 19:45 Albumin 3.9 g/dl (3.4-5.0) 02/05/19 19:45 EKG: NS rate of 68, RBBB, normal axis, no hypertrophy, Q waves in II, III and aVF, no ST elevations or depressions CXR: Suggests right sided aspiration PNA Re-assessment: Patient persistently satting in the 80's and has gurgles upon each breath Disposition: Admit to hospital Discharge - Discharge Information Problems reviewed: Yes Clinical Impression/Diagnosis: Transaminitis, Elevated alkaline phosphatase level, Seizure, Respiratory distress, Chronic respiratory insufficiency, Acute hypoxemic respiratory failure , Shortness of breath, Profound mental retardation Aspiration pneumonia Qualifiers: Aspiration pneumonia type: unspecified Laterality: right Lung location: lower lobe of lung Qualified Code(s): J69.0 - Pneumonitis due to inhalation of food and vomit Condition: Stable - Admission Yes - Follow up/Referral - Patient Discharge Instructions - Post Discharge Activity
[2019-02-05] MEDS ORDERED: levETIRAcetam 500 MG/5 ML INJECTION VIAL IVPB ONE ×2 (20:01→20:04)
[2019-02-05 20:03] LABS: BASO % 0.1 % (0-2.0); EOS % 1.7 % (0-4.5); HEMATOCRIT 46.9 % (35.4-49); HEMOGLOBIN 15.8 GM/dL (11.7-16.9); MCH 34.1 pg (25.7-33.7); MCHC 33.7 g/dl (32.0-35.9); MEAN CELL VOLUME 101.3 fl (80-96); MEAN PLT VOLUME 11.4 fl (7.5-11.1); MONO % 8.5 % (3.8-10.2); NEUT % 76.7 % (42.8-82.8); PLATELET COUNT 162 K/MM3 (134-434); RBC 4.63 M/mm3 (4.00-5.60); RDW 16.1 % (11.9-15.9); WHITE BLOOD COUNT 10.9 K/mm3 (4.0-10.0)
--- NOTE | 2019-02-05 20:28 | PDOC ---
Attending Attestation - Resident Resident Name: Jimmie Hinds - ED Attending Attestation I have performed the following: I have examined & evaluated the patient, The case was reviewed & discussed with the resident, I agree w/resident's findings & plan - HPI HPI: 02/06/19 01:35 Pt comes with SOB and low pulsox and appearing unwell; had a seizure at the alf/NH - Physicial Exam PE: 02/06/19 01:36 Agree with resident exam - Medical Decision Making 02/05/19 21:21 Pt has a right sided aspiration pneumonia that is visible on the CXR; compared to the last CXR from 2 mos prior. We will rx with unasyn 1.5g Q6h Pt will be admitted, as his Pulsox is 87-90% on vernturi mask. Hospitalist will be called. 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
[2019-02-05 20:34] LABS: ALBUMIN 3.9 g/dl (3.4-5.0); BILIRUBIN,TOTAL 0.2 mg/dL (0.2-1); BLOOD UREA NITROGEN 17.7 mg/dL (7-18); CALCIUM 9.6 mg/dL (8.5-10.1); CREATININE 0.5 mg/dL (0.55-1.3); POTASSIUM 4.3 mmol/L (3.5-5.1); TOT PROT 9.1 g/dl (6.4-8.2)
[2019-02-05] MEDS ORDERED: AMPICILLIN NA/SULBACTAM NA 1.5 GM in SODIUM CHLORIDE 100 ML IVPB ONE (21:20)
--- NOTE | 2019-02-05 22:45 | PN ---
Teaching Attending Note Name of Resident: Haley James ATTENDING PHYSICIAN STATEMENT I saw and evaluated the patient. I reviewed the resident's note and discussed the case with the resident. I agree with the resident's findings and plan as documented. 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 The ND gave the patient diastat at [place]. When EMS arrived the patient was no longer seizing. The medical editor who is in the ER with the patient states that he had a seizure and has not been experiencing any symptoms since. Oxygen saturation was noted to be in the 80s in the ER, but improved with O2 therapy. OBJECTIVE: Alert Vital Signs Period Temp Pulse Resp BP Sys/Linares Pulse Ox Last 24 Hr 94.4 F 79-83 24-28 112-125/77-83 87-98 HEENT: No Jaundice, eye redness or discharge, PERRLA, EOMI. Nonverbal. Normocephalic, atraumatic. External ears are normal. No nasal discharge. Neck: Supple, nontender. No palpable adenopathy or thyromegaly. No JVD Chest: Good effort. Clear to auscultation and percussion. Heart: Regular. No S3, rub or murmur Abdomen: Not distended, soft, nontender and no HSM. PEG in place. No rebound or guarding. Normal bowel sounds. Ext: Peripheral pulses intact. No leg edema. Diffuse contractures. Skin: Warm and dry. No petechiae, rash or ecchymosis. Neuro: Alert. Nonverbal. Sensation grossly intact in all four extremities and DTR are symmetric. Psych: Appropriate mood and affect. Current Medications Generic Name Dose Route Start Last Admin Trade Name Freq PRN Reason Stop Dose Admin Acyclovir 400 mg 02/06/19 10:00 Zovirax - PO BID JORGE Albuterol/Ipratropium 1 amp 02/06/19 08:00 Duoneb - NEB RQID JORGE Baclofen 10 mg 02/06/19 10:00 Lioresal - GT BID JORGE Budesonide 1 amp 02/06/19 08:00 Pulmicort 0.25 Mg Nebulizer - NEB RBID JORGE Clobazam 10 mg 02/06/19 22:00 Onfi - GT HS [facility] Clobazam 5 mg 02/06/19 10:00 Onfi - PO DAILY JORGE Clonazepam 1.5 mg 02/06/19 06:00 Klonopin - PO TID JORGE Diazepam 7.5 mg 02/05/19 23:48 Diastat Rectal Gel - RC PRN PRN <Seizures> Enoxaparin Sodium 30 mg 02/06/19 10:00 Lovenox - SQ DAILY [facility] Fluticasone Propionate 2 spray 02/06/19 07:00 Flonase - NS AM [facility] Lactobacillus Acidophilus 1 tab 02/06/19 22:00 Bacid - PO HS [facility] Lamotrigine 200 mg 02/06/19 10:00 Lamictal - PO BID [facility] Levetiracetam 500 mg 02/06/19 10:00 Keppra Injection - IVPB BID [facility] Lorazepam 2 mg 02/05/19 23:41 Ativan Injection - IVPUSH Q6H PRN RECENT SEIZURES Magnesium Hydroxide 20 ml 02/06/19 10:00 Milk Of Magnesia - GT BID [facility] Multivitamins/Minerals/Vitamin C 1 tab 02/06/19 10:00 Tab-A-Vit - PO DAILY [facility] Non-Formulary Medication 15 gm 02/06/19 22:00 Fructooligosaccharides/Polydex [Fiber-Stat 15 Gm/30 Ml Liquid] GT HS [facility] Non-Formulary Medication 946 ml 02/06/19 10:00 Protein Supplement [Promod] PO DAILY [facility] Phenobarbital 45 mg 02/06/19 10:00 Phenobarbital - PO BID [facility] Ranitidine HCl 75 mg 02/06/19 10:00 Zantac - PO BID [facility] Home Medications Medication Instructions Recorded Acyclovir 400 mg GT BID 04/25/17 Baclofen 10 mg GT BID 04/25/17 Clobazam [Onfi -] 10 mg GT HS 04/25/17 Clonazepam 1.5 mg GT TID 04/25/17 Lactobacillus Acidophilus 1 each GT HS 04/25/17 [Acidophilus] Lamotrigine 200 mg GT BID 04/25/17 Multivitamin [Poly-Vitamin] 1 each GT HS 04/25/17 Phenobarbital 48.6 mg GT BID 04/25/17 Ranitidine [Zantac -] 75 mg GT BID #0 tab 03/29/18 Diazepam Rectal Gel [Diastat 7.5 mg [place] PRN PRN 05/23/18 Rectal Gel -] Fructooligosaccharides/Polydex 15 gm GT HS 05/23/18 [Fiber-Stat 15 gm/30 ml Liquid] Protein Supplement [Promod] 946 ml PO DAILY 05/23/18 Albuterol 2.5/Ipratropium 0.5 1 neb IH QID 02/05/19 [Duoneb -] Budesonide [Pulmicort 0.25 mg -] 1 neb PO BID 02/05/19 Clobazam [Sympazan] 5 mg GT DAILY 02/05/19 Fluticasone Prop 0.05% Nasal 2 spray NS AM 02/05/19 [Flonase -] Magnesium Hydrox 2400MG/30Ml [Milk 20 ml GT BID 02/05/19 of Magnesia -] Abnormal Lab Results 02/05/19 02/05/19 02/05/19 19:45 19:45 22:35 WBC 10.9 H MCV 101.3 H MCH 34.1 H RDW 16.1 H MPV 11.4 H D Absolute Neuts (auto) 8.4 H POC VBG pCO2 53.5 H POC VBG pO2 66.0 H VBG O2 Sat (Renzo) 90.7 H Anion Gap 6 L Creatinine 0.5 L AST 149 H ALT 158 H Alkaline Phosphatase 489 H Total Protein 9.1 H ASSESSMENT AND PLAN: 1. Seizure disorder with breakthrough seizure - No obvious precipitating factor. Got Keppra 500 mg IV in the ER. Will check Lamictal and Phenobarb levels and continue IV Keppra 500 mg bid. CXR is rotated but shows no definite infiltrate. Temp was 94.4 on arrival - will repeat rectal temp, CBC and lactic acid and withhold antibiotics for now. EKG shows NSR with RBBB and old infarcts. Will trend LFTs and get RUQ sonogram - has a history of elevated LFTs. Will continue comprehensive care for all of patients comorbid conditions including adequate nutrition via PEG. Consult Neurology. 2. DVT prophylaxis - Lovenox 40 mg SQ q 24 hours. 3. Advance directives - Full code
[2019-02-05 23:08] LABS: VENOUS PC02 53.5 mmHg (38-52); VENOUS PH 7.33 (7.31-7.41)
[2019-02-05] MEDS ORDERED: LORazepam 2 MG/ML SDV VIAL IVPUSH PRN (23:41)
[2019-02-05] MEDS ORDERED: diazePAM ACUDIAL 5-7.5-10 MG 1 EACH KIT RC PRN (23:48)
--- NOTE | 2019-02-06 00:17 | HP ---
CHIEF COMPLAINT: seizure PCP: from [place] HISTORY OF PRESENT ILLNESS: Patient is a 23 y/o male with a history of cerebral palsy, epilepsy, asthma, herpes encephalitis, and GERD who presents from [place]. Per the patients aid patient had a seizure at [place]. He has a history of seizures, but has not had any recently and also this one lasted 10 minutes which is longer then usual for him. Patient was given diastat and the seizure broke. En route to the ED patient was noted to have gurgling sounds and his oxygen saturation dropped to the 80's. Patient did not miss any of his medications today. ER course was notable for: (1)Taco Henson, NS (2) (3) Recent Travel: denies PAST MEDICAL HISTORY: cerebral palsy, epilepsy, asthma, herpes encephalitis, and GERD PAST SURGICAL HISTORY: peg tube Social History: Smoking: denies Alcohol: denies Drugs: denies Allergies No Known Allergies Allergy (Verified 02/05/19 18:53) HOME MEDICATIONS: Home Medications Medication Instructions Recorded Acyclovir 400 mg GT BID 04/25/17 Baclofen 10 mg GT BID 04/25/17 Clobazam [Onfi -] 10 mg GT HS 04/25/17 Clonazepam 1.5 mg GT TID 04/25/17 Lactobacillus Acidophilus 1 each GT HS 04/25/17 [Acidophilus] Lamotrigine 200 mg GT BID 04/25/17 Multivitamin [Poly-Vitamin] 1 each GT HS 04/25/17 Phenobarbital 48.6 mg GT BID 04/25/17 Ranitidine [Zantac -] 75 mg GT BID #0 tab 03/29/18 Diazepam Rectal Gel [Diastat 7.5 mg [place] PRN PRN 05/23/18 Rectal Gel -] Fructooligosaccharides/Polydex 15 gm GT HS 05/23/18 [Fiber-Stat 15 gm/30 ml Liquid] Protein Supplement [Promod] 946 ml PO DAILY 05/23/18 Albuterol 2.5/Ipratropium 0.5 1 neb IH QID 02/05/19 [Duoneb -] Budesonide [Pulmicort 0.25 mg -] 1 neb PO BID 02/05/19 Clobazam [Sympazan] 5 mg GT DAILY 02/05/19 Fluticasone Prop 0.05% Nasal 2 spray NS AM 02/05/19 [Flonase -] Magnesium Hydrox 2400MG/30Ml [Milk 20 ml GT BID 02/05/19 of Magnesia -] REVIEW OF SYSTEMS unable to obtain PHYSICAL EXAMINATION Vital Signs - 24 hr 02/05/19 02/05/19 02/05/19 18:50 22:31 22:32 Temperature 94.4 F L Pulse Rate 79 Pulse Rate [ 83 Right] Respiratory 28 H 24 H Rate Blood Pressure 112/77 Blood Pressure 125/83 [Right Arm] O2 Sat by Pulse 87 L 98 97 Oximetry (%) GENERAL: Awake, HEAD: microcephaly EYES: Pupils equal, round and reactive to light, EARS, NOSE, THROAT: Moist mucous membranes. LUNGS: difficult to auscultate, poor air entry HEART: Regular rate and rhythm, normal S1 and S2 without murmur, rub or gallop. ABDOMEN: Soft, nontender, not distended, normoactive bowel sounds, no guarding, no rebound, no masses. PEG tube in LLQ LOWER EXTREMITIES: 2+ pulses, warm, well-perfused. No calf tenderness. No peripheral edema. SKIN: Warm, dry, normal turgor, no rashes or lesions noted, normal capillary refill. Contracted legs and arms CBC, BMP 02/05/19 19:45 02/05/19 19:45 EKG: RBB ASSESSMENT/PLAN: Patient is a 23 y/o male with a history of cerebral palsy, epilepsy, asthma, herpes encephalitis, and GERD who presents from [place] for a seizure. #Seizure - possible breakthrough seizure from epilepsy disorder - resolved with Diastat - in ED patient given IV Keppra 500, Keppra continued 500 BID IV - patients home antiseizure medication continued, Onfi, Phenobarbitaol, Lamictal - check levels of Lamictal and Phenobarbital - Patient saw Dr. Martinez in the past, f/u for possible medication adjustment - seizure precaution - ativan 2 mg prn for seizure breakthrough #Hypoxia - possibly 2/2 to aspiration, hx of asthma - patient given 1x Unasyn in the ED, patient without sympotms of aspiration PNA will hold off abx for now - Patient on venti Mask, satting above > 90 - maintain O2 > 90 - hold feeds for aspiration risk - continue duonebs prn - CXR poor quality and patient severely rotated, difficult view #hypothermia - unknown source - patient on SANTANA hugger overnight - continue workup for sepsis #elevated transaminitis and alk phosp - patient has had elevated liver enzymes upon previous admissions - likely 2/2 to medication side effect - continue to trend while admitted #herpes encephalitis - continue acyclovir 400 BID #DVT ppx - lovenox 30 sq daily FEN - NPO for now - monitor electrolytes Dispo: monitor on med/surg Visit type - Emergency Visit Emergency Visit: Yes ED Registration Date: 02/05/19 Care time: The patient presented to the Emergency Department on the above date and was hospitalized for further evaluation of their emergent condition. - New Patient This patient is new to me today: Yes Date on this admission: 02/07/19 - Critical Care Critical Care patient: No ATTENDING PHYSICIAN STATEMENT I saw and evaluated the patient. I reviewed the resident's note and discussed the case with the resident. I agree with the resident's findings and plan as documented. SUBJECTIVE: OBJECTIVE: ASSESSMENT AND PLAN:
[2019-02-06] MEDS ORDERED: clonazePAM 0.5 MG TABLET PO SCH (06:00)
[2019-02-06] MEDS ORDERED: CLONAZEPAM 1.5 MG GT SCH (06:00)
[2019-02-06] MEDS ORDERED: DEXTROSE 5%-NORMAL SALINE 1,000 ML IV SCH (08:15)
[2019-02-06 08:20] LABS: BASO % 0.2 % (0-2.0); EOS % 1.5 % (0-4.5); HEMATOCRIT 40.7 % (35.4-49); HEMOGLOBIN 13.7 GM/dL (11.7-16.9); LYMPH % 22.4 % (8-40); MCH 34.4 pg (25.7-33.7); MCHC 33.7 g/dl (32.0-35.9); MEAN CELL VOLUME 102.3 fl (80-96); MEAN PLT VOLUME 11.2 fl (7.5-11.1); MONO % 6.8 % (3.8-10.2); NEUT % 69.1 % (42.8-82.8); PLATELET COUNT 149 K/MM3 (134-434); RBC 3.98 M/mm3 (4.00-5.60); RDW 16.1 % (11.9-15.9); WHITE BLOOD COUNT 9.3 K/mm3 (4.0-10.0)
[2019-02-06 08:42] LABS: ALBUMIN 3.1 g/dl (3.4-5.0); BILIRUBIN,TOTAL 0.2 mg/dL (0.2-1); BLOOD UREA NITROGEN 11.3 mg/dL (7-18); CREATININE 0.5 mg/dL (0.55-1.3); MAGNESIUM 2.1 mg/dL (1.8-2.4); PHOSPHOROUS 3.7 mg/dL (2.5-4.9); POTASSIUM 4.2 mmol/L (3.5-5.1); TOT PROT 7.4 g/dl (6.4-8.2)
[2019-02-06] MEDS ORDERED: PT OWN MED DRAWER 7, Y5N ONE ×3 (08:53→10:42)
[2019-02-06] MEDS ORDERED: SODIUM CHLORIDE 500 ML IV STA (09:09)
[2019-02-06] MEDS ORDERED: PHENobarbital 15 MG TABLET PO SCH (10:00)
[2019-02-06] MEDS ORDERED: PROTEIN SUPPLEMENT PO SCH (10:00)
[2019-02-06] MEDS ORDERED: cloBAZam 10 MG TABLET PO SCH (10:00)
[2019-02-06] MEDS ORDERED: MULTIVITAMINS (DAILY MVI) TABLET (FP) PO SCH (10:00)
[2019-02-06] MEDS ORDERED: RANITIDINE HCL 150 MG TABLET (FP) PO SCH (10:00)
[2019-02-06] MEDS ORDERED: PIPERACILLIN/TAZOB 3.375 GM 3.375 GM in DEXTROSE 5%-WATER - 50 ML IVPB SCH ×2 (10:00→12:45)
[2019-02-06] MEDS ORDERED: ACYCLOVIR 400 MG GT SCH (10:00)
[2019-02-06] MEDS ORDERED: CLOBAZAM 5 MG GT SCH (10:00)
[2019-02-06] MEDS ORDERED: PHENOBARBITAL GT SCH (10:00)
[2019-02-06] MEDS ORDERED: ACYCLOVIR 200 MG CAPSULE PO SCH (10:00)
[2019-02-06] MEDS ORDERED: lamoTRIgine 100 MG TABLET (FP) PO SCH (10:00)
[2019-02-06] MEDS: FLUTICASONE PROP 0.05% 16 GM NASAL SPRAY NS SCH (10:37)
[2019-02-06] MEDS: MULTIVIT-MINERALS ORAL LIQUID GT SCH (10:38)
[2019-02-06] MEDS: ACYCLOVIR 200 MG/5 ML LIQUID GT SCH ×2 (10:39→21:16)
[2019-02-06] MEDS: cloBAZam 10 MG TABLET GT SCH ×2 (10:44→21:15)
[2019-02-06] MEDS: RANITIDINE HCL 150 MG/10 ML UNIT-DOSE GT SCH ×2 (10:44→21:15)
[2019-02-06] MEDS: MAGNESIUM HYDROX 2400MG/30ML ORAL SUSPENSION 30 ML CUP GT SCH ×2 (10:45→21:14)
[2019-02-06] MEDS: BACLOFEN 10 MG TABLET (FP) GT SCH ×2 (10:46→21:15)
[2019-02-06] MEDS: PHENobarbital 20 MG/5 ML UNIT-DOSE CUP GT SCH ×2 (10:48→21:18)
[2019-02-06] MEDS: ENOXAPARIN NA (PORCINE) 30 MG/0.3 ML DISP.SYRIN SQ SCH (10:50)
[2019-02-06] MEDS: lamoTRIgine 100 MG TABLET (FP) GT SCH ×2 (10:50→21:16)
[2019-02-06] MEDS: ALBUTEROL SO4 2.5/IPRATROPIUM 0.5 INH SOL 3 ML VIAL.NEB. NEB SCH ×4 (10:55→20:18)
[2019-02-06] MEDS: BUDESONIDE 0.25 MG/2ML INH SUSP VIAL NEB SCH ×2 (10:55→20:09)
[2019-02-06 10:58] LABS: ARTERIAL BLD GAS O2 SATURATION 99.6 % (95-98); ARTERIAL BLOOD GAS BASE EXCESS -0.1 meq/l (-2-2); ARTERIAL BLOOD GAS PCO2 47.6 mmHg (35-45); ARTERIAL BLOOD GAS PO2 193 mmHg (80-100); ARTERIAL BLOOD GAS pH 7.35 (7.35-7.45)
[2019-02-06 11:00] LABS: ALLENS TEST POSITIVE
[2019-02-06] MEDS ORDERED: FLU VACCINE QUAD 60 MCG/0.5 ML (MDV 19-20) IM ONE (11:00)
[2019-02-06] MEDS ORDERED: PIPERACILLIN/TAZOBACTAM 3.375 GM VIAL IVPB ONE ×2 (11:44→17:39)
[2019-02-06] MEDS ORDERED: DEXTROSE 5%-WATER - 50 ML IVPB ONE ×2 (11:44→17:39)
--- NOTE | 2019-02-06 12:45 | PN ---
Progress Note (short form) - Note Progress Note: ID CONSULT DICTATED PROBABLE ASP PNEUMONIA HYPOTHERMIA R/O SEPSIS S/P SEIZURE CP/MR AWAIT C/S EMPIRIC ZOSYN
[2019-02-06] MEDS: levETIRAcetam 500 MG/5 ML INJECTION VIAL IVPB SCH ×2 (12:47→21:16)
--- NOTE | 2019-02-06 13:00 | PN ---
Physical Exam: SUBJECTIVE: Patient seen and examined, non verbal, comfortable. OBJECTIVE: Vital Signs Period Temp Pulse Resp BP Sys/Linares Pulse Ox Last 24 Hr 92.5 F-95.1 F 64-83 20-28 90-132/42-85 87-98 Intake & Output 02/03/19 02/04/19 02/05/19 02/06/19 23:59 23:59 23:59 23:59 Intake Total 100 1030 Balance 100 1030 Weight 94 lb 7 oz general: responds to voice, non verbal, no use accessory muscles in bed, on 50% VM Neck: contracted Chest: poor effort, limited exam, scattered rales Abdomen:Soft, ND, PEG in place Extremities: contracture CVS:S1S2 regular Laboratory Results - last 24 hr 02/05/19 02/05/19 02/05/19 19:45 19:45 19:45 WBC 10.9 H RBC 4.63 Hgb 15.8 Hct 46.9 D MCV 101.3 H MCH 34.1 H MCHC 33.7 RDW 16.1 H Plt Count 162 D MPV 11.4 H D Absolute Neuts (auto) 8.4 H Neutrophils % 76.7 D Lymphocytes % 13.0 D Monocytes % 8.5 Eosinophils % 1.7 Basophils % 0.1 Nucleated RBC % 0 PT with INR INR Anticoagulation Therapy Puncture Site ABG pH ABG pCO2 at Pt Temp ABG pO2 at Pt Temp ABG HCO3 ABG O2 Sat (Measured) ABG O2 Content ABG Base Excess Kaushal Test VBG pH POC VBG pCO2 POC VBG pO2 VBG HCO3 VBG O2 Sat (Renzo) VBG Base Excess O2 Delivery Device Oxygen Flow Rate Vent Mode Vent Rate Mechanical Rate Pressure Support Vent Sodium 137 Potassium 4.3 Chloride 101 Carbon Dioxide 29 Anion Gap 6 L BUN 17.7 Creatinine 0.5 L Est GFR (CKD-EPI)AfAm 178.28 Est GFR (CKD-EPI)NonAf 153.82 Random Glucose 74 Lactic Acid Calcium 9.6 Phosphorus Magnesium Total Bilirubin 0.2 AST 149 H ALT 158 H Alkaline Phosphatase 489 H Creatine Kinase 50 Total Protein 9.1 H Albumin 3.9 02/05/19 02/05/19 02/05/19 19:45 22:35 22:35 WBC RBC Hgb Hct MCV MCH MCHC RDW Plt Count MPV Absolute Neuts (auto) Neutrophils % Lymphocytes % Monocytes % Eosinophils % Basophils % Nucleated RBC % PT with INR Cancelled INR Cancelled Anticoagulation Therapy Puncture Site ABG pH ABG pCO2 at Pt Temp ABG pO2 at Pt Temp ABG HCO3 ABG O2 Sat (Measured) ABG O2 Content ABG Base Excess Kaushal Test VBG pH 7.33 POC VBG pCO2 53.5 H POC VBG pO2 66.0 H VBG HCO3 27.4 VBG O2 Sat (Renzo) 90.7 H VBG Base Excess 0.9 O2 Delivery Device Oxygen Flow Rate Vent Mode Vent Rate Mechanical Rate Pressure Support Vent Sodium Potassium Chloride Carbon Dioxide Anion Gap BUN Creatinine Est GFR (CKD-EPI)AfAm Est GFR (CKD-EPI)NonAf Random Glucose Lactic Acid 1.1 Calcium Phosphorus Magnesium Total Bilirubin AST ALT Alkaline Phosphatase Creatine Kinase Total Protein Albumin 02/05/19 02/06/19 02/06/19 22:35 07:12 07:17 WBC 9.3 RBC 3.98 L Hgb 13.7 Hct 40.7 MCV 102.3 H MCH 34.4 H MCHC 33.7 RDW 16.1 H Plt Count 149 MPV 11.2 H Absolute Neuts (auto) 6.5 Neutrophils % 69.1 Lymphocytes % 22.4 D Monocytes % 6.8 Eosinophils % 1.5 Basophils % 0.2 Nucleated RBC % 0 PT with INR INR Anticoagulation Therapy Puncture Site ABG pH ABG pCO2 at Pt Temp ABG pO2 at Pt Temp ABG HCO3 ABG O2 Sat (Measured) ABG O2 Content ABG Base Excess Kaushal Test VBG pH POC VBG pCO2 POC VBG pO2 VBG HCO3 VBG O2 Sat (Renzo) VBG Base Excess O2 Delivery Device Oxygen Flow Rate Vent Mode Vent Rate Mechanical Rate Pressure Support Vent Sodium 143 Potassium 4.2 Chloride 108 H Carbon Dioxide 29 Anion Gap 6 L BUN 11.3 Creatinine 0.5 L Est GFR (CKD-EPI)AfAm 178.28 Est GFR (CKD-EPI)NonAf 153.82 Random Glucose 72 L Lactic Acid 0.7 Calcium 9.0 Phosphorus 3.7 Magnesium 2.1 Total Bilirubin 0.2 AST 71 H ALT 109 H Alkaline Phosphatase 389 H Creatine Kinase Total Protein 7.4 Albumin 3.1 L 02/06/19 10:50 WBC RBC Hgb Hct MCV MCH MCHC RDW Plt Count MPV Absolute Neuts (auto) Neutrophils % Lymphocytes % Monocytes % Eosinophils % Basophils % Nucleated RBC % PT with INR INR Anticoagulation Therapy No Result Required. Puncture Site Right radial ABG pH 7.35 ABG pCO2 at Pt Temp 47.6 H ABG pO2 at Pt Temp 193 H ABG HCO3 25.5 ABG O2 Sat (Measured) 99.6 H ABG O2 Content 18.6 ABG Base Excess -0.1 Kaushal Test Positive VBG pH POC VBG pCO2 POC VBG pO2 VBG HCO3 VBG O2 Sat (Renzo) VBG Base Excess O2 Delivery Device Venti mask Oxygen Flow Rate 50% Vent Mode No Result Required. Vent Rate No Result Required. Mechanical Rate No Result Required. Pressure Support Vent No Result Required. Sodium Potassium Chloride Carbon Dioxide Anion Gap BUN Creatinine Est GFR (CKD-EPI)AfAm Est GFR (CKD-EPI)NonAf Random Glucose Lactic Acid Calcium Phosphorus Magnesium Total Bilirubin AST ALT Alkaline Phosphatase Creatine Kinase Total Protein Albumin Active Medications Generic Name Dose Route Start Last Admin Trade Name Freq PRN Reason Stop Dose Admin Acyclovir 400 mg 02/06/19 10:00 02/06/19 10:39 Zovirax Oral Suspension - GT 400 mg BID JORGE Administration Albuterol/Ipratropium 1 amp 02/06/19 08:00 02/06/19 10:55 Duoneb - NEB 1 amp RQID JORGE Administration Baclofen 10 mg 02/06/19 10:00 02/06/19 10:46 Lioresal - GT 10 mg BID JORGE Administration Budesonide 1 amp 02/06/19 08:00 02/06/19 10:55 Pulmicort 0.25 Mg Nebulizer - NEB 1 amp RBID JORGE Administration Clobazam 10 mg 02/06/19 22:00 Onfi - GT HS JORGE Clobazam 5 mg 02/06/19 10:00 02/06/19 10:44 Onfi - GT 5 mg DAILY JORGE Administration Clonazepam 1.5 mg 02/06/19 09:01 Klonopin - GT TID JORGE Diazepam 7.5 mg 02/05/19 23:48 Diastat Rectal Gel - RC PRN PRN <Seizures> Enoxaparin Sodium 30 mg 02/06/19 10:00 02/06/19 10:50 Lovenox - SQ 30 mg DAILY JORGE Administration Fluticasone Propionate 2 spray 02/06/19 07:00 02/06/19 10:37 Flonase - NS 2 sprays AM JORGE Administration Dextrose/Sodium Chloride 1,000 mls @ 75 mls/hr 02/06/19 08:15 02/06/19 08:54 D5-Ns - IV 75 mls/hr ASDIR JORGE Administration Piperacillin Sod/Tazobactam 50 mls @ 100 mls/hr 02/06/19 18:00 Sod 3.375 gm/ Dextrose IVPB Q8H-IV JORGE Protocol Lactobacillus Acidophilus 1 tab 02/06/19 22:00 Bacid - GT HS JORGE Lamotrigine 200 mg 02/06/19 10:00 02/06/19 10:50 Lamictal - GT 200 mg BID JORGE Administration Levetiracetam 500 mg 02/06/19 10:00 02/06/19 12:47 Keppra Injection - IVPB 500 mg BID JORGE Administration Lorazepam 2 mg 02/05/19 23:41 Ativan Injection - IVPUSH Q6H PRN RECENT SEIZURES Magnesium Hydroxide 20 ml 02/06/19 10:00 02/06/19 10:45 Milk Of Magnesia - GT 20 ml BID JORGE Administration Multivitamins/Minerals 15 ml 02/06/19 10:00 02/06/19 10:38 Certavite-Antioxidant Liquid GT 15 ml DAILY JORGE Administration Phenobarbital 45 mg 02/06/19 10:00 02/06/19 10:48 Phenobarbital Liquid - GT 45 mg BID JORGE Administration Ranitidine HCl 75 mg 02/06/19 10:00 02/06/19 10:44 Zantac Oral Solution - GT 75 mg BID JORGE Administration Home Medications Medication Instructions Recorded Acyclovir 400 mg GT BID 04/25/17 Baclofen 10 mg GT BID 04/25/17 Clobazam [Onfi -] 10 mg GT HS 04/25/17 Clonazepam 1.5 mg GT TID 04/25/17 Lactobacillus Acidophilus 1 each GT HS 04/25/17 [Acidophilus] Lamotrigine 200 mg GT BID 04/25/17 Multivitamin [Poly-Vitamin] 1 each GT HS 04/25/17 Phenobarbital 48.6 mg GT BID 04/25/17 Ranitidine [Zantac -] 75 mg GT BID #0 tab 03/29/18 Diazepam Rectal Gel [Diastat 7.5 mg FL PRN PRN 05/23/18 Rectal Gel -] Fructooligosaccharides/Polydex 15 gm GT HS 05/23/18 [Fiber-Stat 15 gm/30 ml Liquid] Protein Supplement [Promod] 946 ml GT DAILY 05/23/18 Albuterol 2.5/Ipratropium 0.5 1 neb IH QID 02/05/19 [Duoneb -] Budesonide [Pulmicort 0.25 mg -] 1 neb IH BID 02/05/19 Clobazam [Sympazan] 5 mg GT DAILY 02/05/19 Fluticasone Prop 0.05% Nasal 2 spray NS AM 02/05/19 [Flonase -] Magnesium Hydrox 2400MG/30Ml [Milk 20 ml GT BID 02/05/19 of Magnesia -] CXR results and images reviewed ASSESSMENT/PLAN: 23 yom with PMHx of herpetic meningioencephalitis, Cerebral palsy, seizures , recurrent aspiration PNA , left hip hemarthrosis, dysphagia, PEG, chronic constipation, GERD admitted with seizure, hypothermia, hypoxia -Sepsis -Suspected aspiration PNA -Hypoxic respiratory insufficiency -Seizure, suspect from above -Hypothermia -Cerebral Palsy -H/o Herpetic meningoencephalitis -Left hip hemiarthrosis -Dysphagia s/p PEG -Chronic constipation -GERD Plan: Blood cx sent, CXR reviewed Emperic Zosyn, ID input. Hold tube feeds, start IVF. Aspiration precautions, Chest PT, Standing and prn nebs. Taper oxygen as tolerated. Seizure precautions. Continue clobazem, clonazepam, lamotrigine, diazepam. Loaded with keppra, continue, follow up neurology input [id number] lovenox Dispo To [place] when improved Discussed with nursing. Visit type - Emergency Visit Emergency Visit: Yes ED Registration Date: 02/05/19 Care time: The patient presented to the Emergency Department on the above date and was hospitalized for further evaluation of their emergent condition. - New Patient This patient is new to me today: Yes Date on this admission: 02/06/19 - Critical Care Critical Care patient: No - Discharge Referral Referred to [facility] No
[2019-02-06] MEDS: clonazePAM 0.5 MG TABLET GT SCH ×2 (14:46→21:15)
--- NOTE | 2019-02-06 15:35 | CONS ---
DATE OF CONSULTATION: DATE OF DICTATION: 02/06/2019 The patient is a 23-year-old male, resident of [facility], history of cerebral palsy, mental retardation, and seizure disorder, evaluated for probable aspiration pneumonia. He was admitted to the hospital after seizure activity at the nursing facility. His course has been complicated by hypothermia and elevated white blood cell count. Chest x-ray shows increased markings at the right base. The patient is nonverbal at baseline. He is presently in bed in no acute respiratory distress. Breathing is nonlabored. He does have secretions which are being suctioned. He remains hypothermic on a warming blanket. Cultures were obtained. He was empirically treated with Zosyn. Past medical history positive for cerebral palsy, mental retardation, seizure disorder, gastroesophageal reflux, asthma, history of herpes encephalitis. PAST SURGICAL HISTORY: Status post feeding gastrostomy. No known allergies. LABORATORY DATA: White count 9.3, hematocrit 40.7, platelet count 149. Creatinine 0.5. Chest x-ray: Increased markings, right base. PHYSICAL EXAMINATION: General: He is in no acute distress. Breathing is nonlabored. No cough noted. Vital Signs: Temperature 95.1. Blood pressure 117/42. Pulse 74, regular. Respirations 20 per minute. Eyes: Sclerae anicteric. Heart Sounds: S1, S2. Lungs: Grossly clear. Poor inspiratory effort. Abdomen: Soft and nontender. Feeding gastrostomy. Extremities: Negative for edema. IMPRESSION: 1. Probable aspiration pneumonia. 2. Hypothermia, rule out sepsis. 3. Status post seizure activity. 4. Cerebral palsy/mental retardation. Obtain suction sputum culture, await blood cultures. Continue empiric Zosyn. Thank you for the kind referral. JOSH YOUNG M.D. [id number]
--- NOTE | 2019-02-06 16:48 | EKG ---
Test Reason : Blood Pressure : / mmHG Vent. Rate : 068 BPM Atrial Rate : 068 BPM P-R Int : 156 ms QRS Dur : 122 ms QT Int : 434 ms P-R-T Axes : 048 081 042 degrees QTc Int : 461 ms NORMAL SINUS RHYTHM RIGHT BUNDLE BRANCH BLOCK INFERIOR INFARCT (CITED ON OR BEFORE 26-JUN-2016) ANTEROLATERAL INFARCT , AGE UNDETERMINED ABNORMAL ECG WHEN COMPARED WITH ECG OF 20-DEC-2018 13:10, NO SIGNIFICANT CHANGE WAS FOUND Confirmed by MAIKOL BARROS MD ([id number]) on 02/06/2019 4:48:22 PM Referred By: Confirmed By:MAIKOL BARROS MD
[2019-02-06] MEDS: PIPERACILLIN/TAZOB 3.375 GM 3.375 GM in DEXTROSE 5%-WATER - 50 ML IVPB SCH (17:42)
--- NOTE | 2019-02-06 19:24 | CON.NEURO ---
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: Other (Mental retardation, cerebral palsy) Pulmonary: Yes: Asthma Gastrointestinal: Yes: Other (gastrostomy) Infectious Disease: Yes: Herpes Zoster Musculoskeletal: Yes: Other (Functional Qaudraplegic) - Alcohol/Substance Use Hx Alcohol Use: No - Smoking History Smoking history: Never smoked Have you smoked in the past 12 months: No Aproximately how many cigarettes per day: 0 - Social History Usual Living Arrangement: [facility] ADL: Support Services History of Recent Travel: No Home Medications - Allergies Allergies/Adverse Reactions: Allergies Allergy/AdvReac Type Severity Reaction Status Date / Time No Known Allergies Allergy Verified 02/05/19 18:53 - Home Medications Home Medications: Ambulatory Orders Acyclovir 400 mg GT BID 04/25/17 Baclofen 10 mg GT BID 04/25/17 Clobazam [Onfi -] 10 mg GT HS 04/25/17 Clonazepam 1.5 mg GT TID 04/25/17 Lactobacillus Acidophilus [Acidophilus] 1 each GT HS 04/25/17 Lamotrigine 200 mg GT BID 04/25/17 Multivitamin [Poly-Vitamin] 1 each GT HS 04/25/17 Phenobarbital 48.6 mg GT BID 04/25/17 Ranitidine [Zantac -] 75 mg GT BID #0 tab 03/29/18 Diazepam Rectal Gel [Diastat Rectal Gel -] 7.5 mg GA PRN PRN 05/23/18 Fructooligosaccharides/Polydex [Fiber-Stat 15 gm/30 ml Liquid] 15 gm GT HS 05/23 Protein Supplement [Promod] 946 ml GT DAILY 05/23/18 Albuterol 2.5/Ipratropium 0.5 [Duoneb -] 1 neb IH QID 02/05/19 Budesonide [Pulmicort 0.25 mg -] 1 neb IH BID 02/05/19 Clobazam [Sympazan] 5 mg GT DAILY 02/05/19 Fluticasone Prop 0.05% Nasal [Flonase -] 2 spray NS AM 02/05/19 Magnesium Hydrox 2400MG/30Ml [Milk of Magnesia -] 20 ml GT BID 02/05/19 Family Medical History Family History: Unable to Obtain Review of Systems Unable to obtain ROS, reason: ??? Physical Exam-Neuro Vital Signs: Vital Signs Temperature 97 F L 02/06/19 16:55 Pulse Rate 111 H 02/06/19 16:55 Respiratory Rate 20 02/06/19 16:55 Blood Pressure 114/67 02/06/19 16:55 O2 Sat by Pulse Oximetry (%) 97 02/06/19 10:00 Labs: CBC, BMP 02/06/19 07:12 02/06/19 07:17 INR, PTT INR Cancelled 02/05/19 22:35 - Neuro Exam Level Of Consciousness: Yes: Alert Eyes: Yes: PERRLA Speech: Garbled Cranial Nerves II-XII Intact: No Gag: Present DTR's: 2+ Left Bicep, 2+ Right Bicep, 2+ Left Tricep, 2+ Right Tricep Motor Strength: 0/5: Left Arm (contracture with spsticity with clonus ) Gait: Deferred Problem List - Problems (1) Seizure Assessment/Plan: 1. Sz precautions 2. Ativan IVP prn sz 3. Follow Lamotrigine level and will adjust 4. Follow Phenobarb and will follow the level Thank you for [facility] kind referral Code(s): R56.9 - UNSPECIFIED CONVULSIONS
[2019-02-06] MEDS: LACTOBACILLUS ACIDOPHILUS 1 TABLET GT SCH (21:15)
[2019-02-06] MEDS ORDERED: [UNRECOGNIZED DRUG - MIXTURE] GT SCH (22:00)
[2019-02-06] MEDS ORDERED: PATIENT'S OWN MEDICATION (NON-FORMULARY) (Multivitamin [Poly-Vitamin] 1 EACH) GT SCH (22:00)
[2019-02-06] MEDS ORDERED: LACTOBACILLUS ACIDOPHILUS 1 TABLET PO SCH (22:00)
[2019-02-06] MEDS ORDERED: PATIENT'S OWN MEDICATION (NON-FORMULARY) (Lactobacillus Acidophilus [Acidophilus] 1 EACH) GT SCH (22:00)
[2019-02-07] MEDS ORDERED: PIPERACILLIN/TAZOBACTAM 3.375 GM VIAL IVPB ONE ×3 (00:14→17:41)
[2019-02-07] MEDS ORDERED: DEXTROSE 5%-WATER - 50 ML IVPB ONE ×3 (00:14→17:41)
[2019-02-07] MEDS: PIPERACILLIN/TAZOB 3.375 GM 3.375 GM in DEXTROSE 5%-WATER - 50 ML IVPB SCH ×3 (01:32→17:51)
[2019-02-07] MEDS ORDERED: PT OWN MED DRAWER 7, Y5N ONE ×5 (05:32→22:54)
[2019-02-07] MEDS: clonazePAM 0.5 MG TABLET GT SCH ×3 (05:54→22:11)
[2019-02-07] MEDS: FLUTICASONE PROP 0.05% 16 GM NASAL SPRAY NS SCH (06:01)
[2019-02-07] MEDS: ALBUTEROL SO4 2.5/IPRATROPIUM 0.5 INH SOL 3 ML VIAL.NEB. NEB SCH ×3 (07:33→20:40)
[2019-02-07] MEDS: BUDESONIDE 0.25 MG/2ML INH SUSP VIAL NEB SCH ×2 (07:41→20:40)
[2019-02-07 07:51] LABS: BASO % 0.3 % (0-2.0); EOS % 1.4 % (0-4.5); HEMATOCRIT 38.8 % (35.4-49); HEMOGLOBIN 13.3 GM/dL (11.7-16.9); LYMPH % 8.9 % (8-40); MCH 34.9 pg (25.7-33.7); MCHC 34.2 g/dl (32.0-35.9); MEAN CELL VOLUME 101.9 fl (80-96); MEAN PLT VOLUME 10.2 fl (7.5-11.1); MONO % 6.4 % (3.8-10.2); PLATELET COUNT 152 K/MM3 (134-434); RBC 3.81 M/mm3 (4.00-5.60); RDW 16.5 % (11.9-15.9); WHITE BLOOD COUNT 8.6 K/mm3 (4.0-10.0)
[2019-02-07 08:12] LABS: ALBUMIN 2.8 g/dl (3.4-5.0); BILIRUBIN,TOTAL 0.4 mg/dL (0.2-1); BLOOD UREA NITROGEN 8.2 mg/dL (7-18); CALCIUM 8.7 mg/dL (8.5-10.1); CREATININE 0.7 mg/dL (0.55-1.3); MAGNESIUM 2.1 mg/dL (1.8-2.4); POTASSIUM 4.1 mmol/L (3.5-5.1)
[2019-02-07] MEDS: levETIRAcetam 500 MG/5 ML INJECTION VIAL IVPB SCH ×2 (10:13→22:13)
[2019-02-07] MEDS: MULTIVIT-MINERALS ORAL LIQUID GT SCH (10:17)
[2019-02-07] MEDS: BACLOFEN 10 MG TABLET (FP) GT SCH ×2 (10:19→22:10)
[2019-02-07] MEDS: lamoTRIgine 100 MG TABLET (FP) GT SCH ×2 (10:19→22:15)
[2019-02-07] MEDS: MAGNESIUM HYDROX 2400MG/30ML ORAL SUSPENSION 30 ML CUP GT SCH ×2 (10:20→22:05)
[2019-02-07] MEDS: cloBAZam 10 MG TABLET GT SCH ×2 (10:21→22:15)
[2019-02-07] MEDS: PHENobarbital 20 MG/5 ML UNIT-DOSE CUP GT SCH ×2 (10:24→22:09)
[2019-02-07] MEDS: RANITIDINE HCL 150 MG/10 ML UNIT-DOSE GT SCH ×2 (10:24→22:06)
[2019-02-07] MEDS: ACYCLOVIR 200 MG/5 ML LIQUID GT SCH ×2 (10:27→22:16)
[2019-02-07] MEDS: ENOXAPARIN NA (PORCINE) 30 MG/0.3 ML DISP.SYRIN SQ SCH (10:27)
[2019-02-07] MEDS ORDERED: SODIUM CHLORIDE 0.45% 1,000 ML IV SCH (11:15)
--- NOTE | 2019-02-07 11:52 | PN ---
Progress Note, Physician History of Present Illness: No clinical seizure Chart rvewied On Lamictel and Phenobarb - Current Medication List Current Medications: Active Medications Acyclovir (Zovirax Oral Suspension -) 400 mg GT BID [facility] Last Admin: 02/07/19 10:27 Dose: 400 mg Albuterol/Ipratropium (Duoneb -) 1 amp NEB RQID [facility] Last Admin: 02/07/19 11:20 Dose: 1 amp Baclofen (Lioresal -) 10 mg GT BID [facility] Last Admin: 02/07/19 10:19 Dose: 10 mg Budesonide (Pulmicort 0.25 Mg Nebulizer -) 1 amp NEB RBID [facility] Last Admin: 02/07/19 07:41 Dose: Not Given Clobazam (Onfi -) 10 mg GT HS [facility] Last Admin: 02/06/19 21:15 Dose: 10 mg Clobazam (Onfi -) 5 mg GT DAILY [facility] Last Admin: 02/07/19 10:21 Dose: 5 mg Clonazepam (Klonopin -) 1.5 mg GT TID [facility] Last Admin: 02/07/19 05:54 Dose: 1.5 mg Diazepam (Diastat Rectal Gel -) 7.5 mg RC PRN PRN PRN Reason: <Seizures> Enoxaparin Sodium (Lovenox -) 30 mg SQ DAILY [facility] Last Admin: 02/07/19 10:27 Dose: 30 mg Fluticasone Propionate (Flonase -) 2 spray NS AM [facility] Last Admin: 02/07/19 06:01 Dose: 2 sprays Piperacillin Sod/Tazobactam (Sod 3.375 gm/ Dextrose) 50 mls @ 100 mls/hr IVPB Q8H-IV JORGE; Protocol Last Admin: 02/07/19 10:11 Dose: 100 mls/hr Sodium Chloride (1/2 Normal Saline) 1,000 mls @ 75 mls/hr IV ASDIR JORGE Lactobacillus Acidophilus (Bacid -) 1 tab GT HS [facility] Last Admin: 02/06/19 21:15 Dose: 1 tab Lamotrigine (Lamictal -) 200 mg GT BID [facility] Last Admin: 02/07/19 10:19 Dose: 200 mg Levetiracetam (Keppra Injection -) 500 mg IVPB BID [facility] Last Admin: 02/07/19 10:13 Dose: 500 mg Lorazepam (Ativan Injection -) 2 mg IVPUSH Q6H PRN PRN Reason: RECENT SEIZURES Magnesium Hydroxide (Milk Of Magnesia -) 20 ml GT BID [facility] Last Admin: 02/07/19 10:20 Dose: 20 ml Multivitamins/Minerals (Certavite-Antioxidant Liquid) 15 ml GT DAILY [facility] Last Admin: 02/07/19 10:17 Dose: 15 ml Phenobarbital (Phenobarbital Liquid -) 45 mg GT BID [facility] Last Admin: 02/07/19 10:24 Dose: 45 mg Ranitidine HCl (Zantac Oral Solution -) 75 mg GT BID [facility] Last Admin: 02/07/19 10:24 Dose: 75 mg - Objective Vital Signs: Vital Signs Temperature 97.4 F L 02/07/19 06:54 Pulse Rate 86 02/07/19 06:54 Respiratory Rate 20 02/07/19 06:54 Blood Pressure 103/62 02/07/19 06:54 O2 Sat by Pulse Oximetry (%) 97 02/06/19 22:00 Constitutional: Yes: Well Nourished Neurological: Yes: Alert (no verbal output) Labs: CBC, BMP 02/07/19 06:50 02/07/19 06:00 INR, PTT INR Cancelled 02/05/19 22:35 Problem List - Problems (1) Seizure Assessment/Plan: Follwo up AED level Seziure precaution Diastat prn seziure Code(s): R56.9 - UNSPECIFIED CONVULSIONS
--- NOTE | 2019-02-07 12:20 | PN ---
Progress Note, Physician History of Present Illness: NON VERBAL BREATHING NON LABORED TEMPS IMPROVED BC (-) SPUTUM C/S MIXED - Current Medication List Current Medications: Active Medications Acyclovir (Zovirax Oral Suspension -) 400 mg GT BID [facility] Last Admin: 02/07/19 10:27 Dose: 400 mg Albuterol/Ipratropium (Duoneb -) 1 amp NEB RQID [facility] Last Admin: 02/07/19 11:20 Dose: 1 amp Baclofen (Lioresal -) 10 mg GT BID [facility] Last Admin: 02/07/19 10:19 Dose: 10 mg Budesonide (Pulmicort 0.25 Mg Nebulizer -) 1 amp NEB RBID [facility] Last Admin: 02/07/19 07:41 Dose: Not Given Clobazam (Onfi -) 10 mg GT HS [facility] Last Admin: 02/06/19 21:15 Dose: 10 mg Clobazam (Onfi -) 5 mg GT DAILY [facility] Last Admin: 02/07/19 10:21 Dose: 5 mg Clonazepam (Klonopin -) 1.5 mg GT TID [facility] Last Admin: 02/07/19 05:54 Dose: 1.5 mg Diazepam (Diastat Rectal Gel -) 7.5 mg RC PRN PRN PRN Reason: <Seizures> Enoxaparin Sodium (Lovenox -) 30 mg SQ DAILY [facility] Last Admin: 02/07/19 10:27 Dose: 30 mg Fluticasone Propionate (Flonase -) 2 spray NS AM [facility] Last Admin: 02/07/19 06:01 Dose: 2 sprays Piperacillin Sod/Tazobactam (Sod 3.375 gm/ Dextrose) 50 mls @ 100 mls/hr IVPB Q8H-IV JORGE; Protocol Last Admin: 02/07/19 10:11 Dose: 100 mls/hr Sodium Chloride (1/2 Normal Saline) 1,000 mls @ 75 mls/hr IV ASDIR JORGE Lactobacillus Acidophilus (Bacid -) 1 tab GT HS [facility] Last Admin: 02/06/19 21:15 Dose: 1 tab Lamotrigine (Lamictal -) 200 mg GT BID [facility] Last Admin: 02/07/19 10:19 Dose: 200 mg Levetiracetam (Keppra Injection -) 500 mg IVPB BID [facility] Last Admin: 02/07/19 10:13 Dose: 500 mg Lorazepam (Ativan Injection -) 2 mg IVPUSH Q6H PRN PRN Reason: RECENT SEIZURES Magnesium Hydroxide (Milk Of Magnesia -) 20 ml GT BID [facility] Last Admin: 02/07/19 10:20 Dose: 20 ml Multivitamins/Minerals (Certavite-Antioxidant Liquid) 15 ml GT DAILY [facility] Last Admin: 02/07/19 10:17 Dose: 15 ml Phenobarbital (Phenobarbital Liquid -) 45 mg GT BID [facility] Last Admin: 02/07/19 10:24 Dose: 45 mg Ranitidine HCl (Zantac Oral Solution -) 75 mg GT BID [facility] Last Admin: 02/07/19 10:24 Dose: 75 mg - Objective Vital Signs: Vital Signs Temperature 97.4 F L 02/07/19 06:54 Pulse Rate 86 02/07/19 06:54 Respiratory Rate 20 02/07/19 06:54 Blood Pressure 103/62 02/07/19 06:54 O2 Sat by Pulse Oximetry (%) 97 02/06/19 22:00 Constitutional: Yes: No Distress Eyes: Yes: Conjunctiva Clear Cardiovascular: Yes: Regular Rate and Rhythm, S1, S2 Respiratory: Yes: Diminished Gastrointestinal: Yes: Normal Bowel Sounds, Soft. No: Tenderness Labs: CBC, BMP 02/07/19 06:50 02/07/19 06:00 INR, PTT INR Cancelled 02/05/19 22:35 Assessment/Plan PROBABLE ASPIRATION PNEUMONIA HYPOTHERMIA IMPROVED SEIZURE DISORDER CP/MR AWAIT C/S CONTINUE ZOSYN
--- NOTE | 2019-02-07 12:23 | PN ---
Teaching Attending Note Name of Resident: Clifford Williamson ATTENDING PHYSICIAN STATEMENT I saw and evaluated the patient. I reviewed the resident's note and discussed the case with the resident. I agree with the resident's findings and plan as documented with exceptions below. SUBJECTIVE: patient seen and examined, non verbal, comfortable. OBJECTIVE: Vital Signs Period Temp Pulse Resp BP Sys/Linares Pulse Ox Last 24 Hr 96.3 F-99.4 F 86-112 20-20 102-114/45-67 97-97 Intake & Output 02/04/19 02/05/19 02/06/19 02/07/19 23:59 23:59 23:59 23:59 Intake Total 100 2730 650 Output Total 1100 100 Balance 100 1630 550 Weight 94 lb 7 oz general: responds to voice, non verbal, no use accessory muscles in bed, on 50% VM Neck: contracted Chest: poor effort, limited exam, no rales or wheezing appreciated today Abdomen:Soft, ND, PEG in place Extremities: contracture CVS:S1S2 regular Active Medications Acyclovir (Zovirax Oral Suspension -) 400 mg GT BID [facility] Last Admin: 02/07/19 10:27 Dose: 400 mg Albuterol/Ipratropium (Duoneb -) 1 amp NEB RQID [facility] Last Admin: 02/07/19 11:20 Dose: 1 amp Baclofen (Lioresal -) 10 mg GT BID [facility] Last Admin: 02/07/19 10:19 Dose: 10 mg Budesonide (Pulmicort 0.25 Mg Nebulizer -) 1 amp NEB RBID [facility] Last Admin: 02/07/19 07:41 Dose: Not Given Clobazam (Onfi -) 10 mg GT HS [facility] Last Admin: 02/06/19 21:15 Dose: 10 mg Clobazam (Onfi -) 5 mg GT DAILY [facility] Last Admin: 02/07/19 10:21 Dose: 5 mg Clonazepam (Klonopin -) 1.5 mg GT TID [facility] Last Admin: 02/07/19 05:54 Dose: 1.5 mg Diazepam (Diastat Rectal Gel -) 7.5 mg RC PRN PRN PRN Reason: <Seizures> Enoxaparin Sodium (Lovenox -) 30 mg SQ DAILY [facility] Last Admin: 02/07/19 10:27 Dose: 30 mg Fluticasone Propionate (Flonase -) 2 spray NS AM [facility] Last Admin: 02/07/19 06:01 Dose: 2 sprays Piperacillin Sod/Tazobactam (Sod 3.375 gm/ Dextrose) 50 mls @ 100 mls/hr IVPB Q8H-IV [facility]; Protocol Last Admin: 02/07/19 10:11 Dose: 100 mls/hr Sodium Chloride (1/2 Normal Saline) 1,000 mls @ 75 mls/hr IV ASDIR [facility] Lactobacillus Acidophilus (Bacid -) 1 tab GT HS [facility] Last Admin: 02/06/19 21:15 Dose: 1 tab Lamotrigine (Lamictal -) 200 mg GT BID [facility] Last Admin: 02/07/19 10:19 Dose: 200 mg Levetiracetam (Keppra Injection -) 500 mg IVPB BID [facility] Last Admin: 02/07/19 10:13 Dose: 500 mg Lorazepam (Ativan Injection -) 2 mg IVPUSH Q6H PRN PRN Reason: RECENT SEIZURES Magnesium Hydroxide (Milk Of Magnesia -) 20 ml GT BID [facility] Last Admin: 02/07/19 10:20 Dose: 20 ml Multivitamins/Minerals (Certavite-Antioxidant Liquid) 15 ml GT DAILY [facility] Last Admin: 02/07/19 10:17 Dose: 15 ml Phenobarbital (Phenobarbital Liquid -) 45 mg GT BID [facility] Last Admin: 02/07/19 10:24 Dose: 45 mg Ranitidine HCl (Zantac Oral Solution -) 75 mg GT BID [facility] Last Admin: 02/07/19 10:24 Dose: 75 mg Laboratory Results - last 24 hr 02/07/19 02/07/19 06:00 06:50 WBC 8.6 RBC 3.81 L Hgb 13.3 Hct 38.8 MCV 101.9 H MCH 34.9 H MCHC 34.2 RDW 16.5 H Plt Count 152 MPV 10.2 Absolute Neuts (auto) 7.1 Neutrophils % 83.0 H D Lymphocytes % 8.9 D Monocytes % 6.4 Eosinophils % 1.4 Basophils % 0.3 Nucleated RBC % 0 Sodium 146 H Potassium 4.1 Chloride 112 H Carbon Dioxide 29 Anion Gap 6 L BUN 8.2 Creatinine 0.7 Est GFR (CKD-EPI)AfAm 155.25 Est GFR (CKD-EPI)NonAf 133.96 Random Glucose 100 Calcium 8.7 Phosphorus 4.0 Magnesium 2.1 Total Bilirubin 0.4 AST 105 H ALT 130 H Alkaline Phosphatase 430 H Total Protein 7.0 Albumin 2.8 L ASSESSMENT AND PLAN: 23 yom with PMHx of herpetic meningioencephalitis, Cerebral palsy, seizures , recurrent aspiration PNA , left hip hemarthrosis, dysphagia, PEG, chronic constipation, GERD admitted with seizure, hypothermia, hypoxia -Sepsis -Suspected aspiration PNA -Hypoxic respiratory insufficiency -Seizure, suspect from above -Hypothermia -Hypernatremia, suspect from NS, with lack of free water intake -Cerebral Palsy -H/o Herpetic meningoencephalitis -Left hip hemiarthrosis -Dysphagia s/p PEG -Chronic constipation -GERD Plan: Doing well. Zosyn, ID input noted. Blood cx neg so far. Check influenza PCR/RVP. Neurology input noted. Follow up AED levels. resume tube feeds. Decrease IVF, change to 1/2 NS. Aspiration precautions, Chest PT, Standing and prn nebs. Taper oxygen as tolerated. Seizure precautions. Continue clobazem, clonazepam, lamotrigine, diazepam. Loaded with keppra, continue, follow up neurology input DVTPPX lovenox Dispo To [facility] when improved Discussed with nursing.
[2019-02-07 14:44] VITALS: BMI 25.4
--- NOTE | 2019-02-07 16:23 | PN ---
Progress Note (short form) - Note Progress Note: HPI: HPI limited due to patient's clinical history. pt without distress and no acute events overnight. Continues with VM50%. PE: Vital Signs 02/07/19 06:54 Temperature 97.4 F L Temperature Rectal Source Pulse Rate 86 Respiratory 20 Rate Blood Pressure 103/62 GEN: NAD, awake/responds with voice, nonverbal HEENT: Neck: No JVD Lungs: Limited inspiratory efort, coarse sounds R>L, no accessory muscle use VM50% CARD: RRR, no murmurs appreciated ABD: Soft, NT/ND, normoactive BS, PEG without any erythema or secretions around stoma EXT: Contracted, Warm, well-perfused Skin: No rashes or lesions appreciated CBC, BMP 02/07/19 06:50 02/07/19 06:00 Active Medications Acyclovir (Zovirax Oral Suspension -) 400 mg GT BID [facility] Last Admin: 02/07/19 10:27 Dose: 400 mg Albuterol/Ipratropium (Duoneb -) 1 amp NEB RQID [facility] Last Admin: 02/07/19 11:20 Dose: 1 amp Baclofen (Lioresal -) 10 mg GT BID [facility] Last Admin: 02/07/19 10:19 Dose: 10 mg Budesonide (Pulmicort 0.25 Mg Nebulizer -) 1 amp NEB RBID [facility] Last Admin: 02/07/19 07:41 Dose: Not Given Clobazam (Onfi -) 10 mg GT HS [facility] Last Admin: 02/06/19 21:15 Dose: 10 mg Clobazam (Onfi -) 5 mg GT DAILY [facility] Last Admin: 02/07/19 10:21 Dose: 5 mg Clonazepam (Klonopin -) 1.5 mg GT TID [facility] Last Admin: 02/07/19 13:47 Dose: 1.5 mg Diazepam (Diastat Rectal Gel -) 7.5 mg RC PRN PRN PRN Reason: <Seizures> Enoxaparin Sodium (Lovenox -) 30 mg SQ DAILY [facility] Last Admin: 02/07/19 10:27 Dose: 30 mg Fluticasone Propionate (Flonase -) 2 spray NS AM [facility] Last Admin: 02/07/19 06:01 Dose: 2 sprays Piperacillin Sod/Tazobactam (Sod 3.375 gm/ Dextrose) 50 mls @ 100 mls/hr IVPB Q8H-IV [facility]; Protocol Last Admin: 02/07/19 10:11 Dose: 100 mls/hr Sodium Chloride (1/2 Normal Saline) 1,000 mls @ 75 mls/hr IV ASDIR [facility] Last Admin: 02/07/19 13:46 Dose: 75 mls/hr Lactobacillus Acidophilus (Bacid -) 1 tab GT HS [facility] Last Admin: 02/06/19 21:15 Dose: 1 tab Lamotrigine (Lamictal -) 200 mg GT BID [facility] Last Admin: 02/07/19 10:19 Dose: 200 mg Levetiracetam (Keppra Injection -) 500 mg IVPB BID [facility] Last Admin: 02/07/19 10:13 Dose: 500 mg Lorazepam (Ativan Injection -) 2 mg IVPUSH Q6H PRN PRN Reason: RECENT SEIZURES Magnesium Hydroxide (Milk Of Magnesia -) 20 ml GT BID [facility] Last Admin: 02/07/19 10:20 Dose: 20 ml Multivitamins/Minerals (Certavite-Antioxidant Liquid) 15 ml GT DAILY [facility] Last Admin: 02/07/19 10:17 Dose: 15 ml Phenobarbital (Phenobarbital Liquid -) 45 mg GT BID [facility] Last Admin: 02/07/19 10:24 Dose: 45 mg Ranitidine HCl (Zantac Oral Solution -) 75 mg GT BID [facility] Last Admin: 02/07/19 10:24 Dose: 75 mg A/P Sepsis 2/2 to aspiration PNA Acute hypoxic respiratory distress 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 Chronic constipation GERD --Continue with Zosyn for aspiration PNA --ID on board and appreciated recommendations --Aspiration precautions to be maintained --Resume tube feeds at lower rate and titrate to goal as respiratory status has improved --will change fluids to 1/2NS and can decrease rate as patient tolerates feeds --Continue Chest PT --Continue Tenisha hugger PRN for hypothermia related to sepsis --Suspect seizure likely 2/2 to lowered threshold in acute sepsis setting --Anti-epileptics to continue: --Keppra 500mg BID IV --Lamictal 200mg GT BID --Phenobarbital 45mg BID GT --Onfi 5mg AM and 10mg HS GT --Ativan PRN for any breakthroughs along with rectal Diazepam PRN --Continue Acyclovir 400mg BID GT --Continue Klonopin 1.5mg TID GT --Will add influenza and Respiratory virus panels to serologies FEN: Fluids: Change to 1/2NS@75cc/hr Electrolyte abnormalities: Hypernatremia Nutrition: Promote 20cc/hr increase 10cc q4h until goal of 45cc/hr with 30cc FW flushes PPX: DVT - Lovenox SQ GI - Ranitidine Dispo: Continue to monitor patient as feeds are reinitiated Case discussed with Dr. Milton Williamson, DO - IM PGY-3
[2019-02-07] MEDS: LACTOBACILLUS ACIDOPHILUS 1 TABLET GT SCH (22:14)
[2019-02-08] MEDS ORDERED: PIPERACILLIN/TAZOBACTAM 3.375 GM VIAL IVPB ONE ×3 (01:34→17:34)
[2019-02-08] MEDS ORDERED: DEXTROSE 5%-WATER - 50 ML IVPB ONE ×2 (01:35→10:21)
[2019-02-08] MEDS: ALBUTEROL SO4 2.5/IPRATROPIUM 0.5 INH SOL 3 ML VIAL.NEB. NEB SCH ×5 (01:40→21:25)
[2019-02-08] MEDS: PIPERACILLIN/TAZOB 3.375 GM 3.375 GM in DEXTROSE 5%-WATER - 50 ML IVPB SCH ×3 (01:40→17:51)
[2019-02-08] MEDS ORDERED: PT OWN MED DRAWER 7, Y5N ONE ×7 (06:12→22:47)
[2019-02-08] MEDS: clonazePAM 0.5 MG TABLET GT SCH ×3 (06:18→22:13)
[2019-02-08] MEDS: FLUTICASONE PROP 0.05% 16 GM NASAL SPRAY NS SCH (06:19)
[2019-02-08 06:40] LABS: BASO % 0.4 % (0-2.0); EOS % 5.5 % (0-4.5); HEMATOCRIT 34.5 % (35.4-49); HEMOGLOBIN 11.8 GM/dL (11.7-16.9); LYMPH % 32.8 % (8-40); MCH 34.7 pg (25.7-33.7); MCHC 34.2 g/dl (32.0-35.9); MEAN CELL VOLUME 101.6 fl (80-96); MEAN PLT VOLUME 10.3 fl (7.5-11.1); MONO % 7.5 % (3.8-10.2); NEUT % 53.8 % (42.8-82.8); PLATELET COUNT 159 K/MM3 (134-434); RDW 16.1 % (11.9-15.9); WHITE BLOOD COUNT 5.1 K/mm3 (4.0-10.0)
[2019-02-08 07:15] LABS: ALBUMIN 2.6 g/dl (3.4-5.0); BILIRUBIN,DIRECT 0.1 mg/dL (0.0-0.2); BILIRUBIN,TOTAL 0.4 mg/dL (0.2-1); BLOOD UREA NITROGEN 7.6 mg/dL (7-18); CALCIUM 8.7 mg/dL (8.5-10.1); CREATININE 0.5 mg/dL (0.55-1.3); PHOSPHOROUS 4.6 mg/dL (2.5-4.9); TOT PROT 6.6 g/dl (6.4-8.2)
[2019-02-08] MEDS: BUDESONIDE 0.25 MG/2ML INH SUSP VIAL NEB SCH ×2 (07:42→21:34)
--- NOTE | 2019-02-08 10:10 | PN ---
Teaching Attending Note Name of Resident: Clifford Williamson ATTENDING PHYSICIAN STATEMENT I saw and evaluated the patient. I reviewed the resident's note and discussed the case with the resident. I agree with the resident's findings and plan as documented with exceptions below SUBJECTIVE: patient seen and examined. smiling, looks comfortable. OBJECTIVE: Vital Signs Period Temp Pulse Resp BP Sys/Linares Pulse Ox Last 24 Hr 97.4 F-98.2 F 53-78 18-20 80-118/36-72 96-96 Intake & Output 02/05/19 02/06/19 02/07/19 02/08/19 23:59 23:59 23:59 23:59 Intake Total 100 2730 1990 825 Output Total 1100 1100 Balance 100 1630 890 825 Weight 94 lb 7 oz 94 lb general: responds to voice, non verbal, no use accessory muscles in bed, smiles when called, comfortable Neck: contracted Chest: poor effort, limited exam, no rales or wheezing appreciated today Abdomen:Soft, ND, PEG in place Extremities: contracture CVS:S1S2 regular Active Medications Acyclovir (Zovirax Oral Suspension -) 400 mg GT BID [facility] Last Admin: 02/07/19 22:16 Dose: 400 mg Albuterol/Ipratropium (Duoneb -) 1 amp NEB RQID [facility] Last Admin: 02/08/19 07:42 Dose: 1 amp Baclofen (Lioresal -) 10 mg GT BID [facility] Last Admin: 02/07/19 22:10 Dose: 10 mg Budesonide (Pulmicort 0.25 Mg Nebulizer -) 1 amp NEB RBID [facility] Last Admin: 02/08/19 07:42 Dose: 1 amp Clobazam (Onfi -) 10 mg GT HS [facility] Last Admin: 02/07/19 22:15 Dose: 10 mg Clobazam (Onfi -) 5 mg GT DAILY [facility] Last Admin: 02/07/19 10:21 Dose: 5 mg Clonazepam (Klonopin -) 1.5 mg GT TID [facility] Last Admin: 02/08/19 06:18 Dose: 1.5 mg Diazepam (Diastat Rectal Gel -) 7.5 mg RC PRN PRN PRN Reason: <Seizures> Enoxaparin Sodium (Lovenox -) 30 mg SQ DAILY [facility] Last Admin: 02/07/19 10:27 Dose: 30 mg Fluticasone Propionate (Flonase -) 2 spray NS AM [facility] Last Admin: 02/08/19 06:19 Dose: 2 sprays Piperacillin Sod/Tazobactam (Sod 3.375 gm/ Dextrose) 50 mls @ 100 mls/hr IVPB Q8H-IV [facility]; Protocol Last Admin: 02/08/19 01:40 Dose: 100 mls/hr Sodium Chloride (1/2 Normal Saline) 1,000 mls @ 75 mls/hr IV ASDIR [facility] Last Admin: 02/07/19 13:46 Dose: 75 mls/hr Lactobacillus Acidophilus (Bacid -) 1 tab GT HS [facility] Last Admin: 02/07/19 22:14 Dose: 1 tab Lamotrigine (Lamictal -) 200 mg GT BID [facility] Last Admin: 02/07/19 22:15 Dose: 200 mg Levetiracetam (Keppra Injection -) 500 mg IVPB BID [facility] Last Admin: 02/07/19 22:13 Dose: 500 mg Lorazepam (Ativan Injection -) 2 mg IVPUSH Q6H PRN PRN Reason: RECENT SEIZURES Magnesium Hydroxide (Milk Of Magnesia -) 20 ml GT BID [facility] Last Admin: 02/07/19 22:05 Dose: 20 ml Multivitamins/Minerals (Certavite-Antioxidant Liquid) 15 ml GT DAILY [facility] Last Admin: 02/07/19 10:17 Dose: 15 ml Phenobarbital (Phenobarbital Liquid -) 45 mg GT BID [facility] Last Admin: 02/07/19 22:09 Dose: 45 mg Ranitidine HCl (Zantac Oral Solution -) 75 mg GT BID [facility] Last Admin: 02/07/19 22:06 Dose: 75 mg Laboratory Results - last 24 hr 02/05/19 02/07/19 02/08/19 23:42 12:11 05:30 WBC 5.1 RBC 3.40 L Hgb 11.8 Hct 34.5 L MCV 101.6 H MCH 34.7 H MCHC 34.2 RDW 16.1 H Plt Count 159 MPV 10.3 Absolute Neuts (auto) 2.7 Neutrophils % 53.8 D Lymphocytes % 32.8 D Monocytes % 7.5 Eosinophils % 5.5 H D Basophils % 0.4 Nucleated RBC % 0 Sodium Potassium Chloride Carbon Dioxide Anion Gap BUN Creatinine Est GFR (CKD-EPI)AfAm Est GFR (CKD-EPI)NonAf Random Glucose Calcium Phosphorus Magnesium Total Bilirubin Direct Bilirubin AST ALT Alkaline Phosphatase Total Protein Albumin Phenobarbital 20 Influenza A (Rapid) Negative Influenza B (Rapid) Negative 02/08/19 05:30 WBC RBC Hgb Hct MCV MCH MCHC RDW Plt Count MPV Absolute Neuts (auto) Neutrophils % Lymphocytes % Monocytes % Eosinophils % Basophils % Nucleated RBC % Sodium 142 Potassium 4.0 Chloride 108 H Carbon Dioxide 28 Anion Gap 6 L BUN 7.6 Creatinine 0.5 L Est GFR (CKD-EPI)AfAm 178.28 Est GFR (CKD-EPI)NonAf 153.82 Random Glucose 91 Calcium 8.7 Phosphorus 4.6 Magnesium 2.0 Total Bilirubin 0.4 Direct Bilirubin 0.1 AST 83 H ALT 112 H Alkaline Phosphatase 386 H Total Protein 6.6 Albumin 2.6 L Phenobarbital Influenza A (Rapid) Influenza B (Rapid) ASSESSMENT AND PLAN: 23 yom with PMHx of herpetic meningioencephalitis, Cerebral palsy, seizures , recurrent aspiration PNA , left hip hemarthrosis, dysphagia, PEG, chronic constipation, GERD admitted with seizure, hypothermia, hypoxia -Sepsis -Suspected aspiration PNA -Hypoxic respiratory insufficiency -Seizure, suspect from above -Hypothermia -Hypernatremia, suspect from NS, with lack of free water intake -Cerebral Palsy -H/o Herpetic meningoencephalitis -Left hip hemiarthrosis -Dysphagia s/p PEG -Chronic constipation -GERD Plan: Doing well. Zosyn, ID input noted. Blood cx neg so far. Sputum cx noted, follow up results. Influenza neg, follow up RVP Neurology input noted. Follow up AED levels. Tube feeds resumed, continue as juan francisco. D/c IVF. Aspiration precautions, Chest PT, Standing and prn nebs. Taper oxygen as tolerated. Seizure precautions. Continue clobazem, clonazepam, lamotrigine, diazepam. Started on keppra on admission, discuss with Dr. Martinez if should continue. DVTPPX lovenox Dispo To [facility] when improved Discussed with nursing.
[2019-02-08] MEDS: BACLOFEN 10 MG TABLET (FP) GT SCH ×2 (10:29→22:14)
[2019-02-08] MEDS: RANITIDINE HCL 150 MG/10 ML UNIT-DOSE GT SCH ×2 (10:29→22:11)
[2019-02-08] MEDS: ENOXAPARIN NA (PORCINE) 30 MG/0.3 ML DISP.SYRIN SQ SCH (10:29)
[2019-02-08] MEDS: lamoTRIgine 100 MG TABLET (FP) GT SCH ×2 (10:30→22:14)
[2019-02-08] MEDS: cloBAZam 10 MG TABLET GT SCH ×2 (10:31→22:14)
[2019-02-08] MEDS: PHENobarbital 20 MG/5 ML UNIT-DOSE CUP GT SCH ×2 (10:31→22:23)
[2019-02-08] MEDS: ACYCLOVIR 200 MG/5 ML LIQUID GT SCH ×2 (10:32→22:12)
[2019-02-08] MEDS: levETIRAcetam 500 MG/5 ML INJECTION VIAL IVPB SCH (11:38)
[2019-02-08] MEDS: MAGNESIUM HYDROX 2400MG/30ML ORAL SUSPENSION 30 ML CUP GT SCH ×2 (11:53→22:09)
--- NOTE | 2019-02-08 12:45 | PN ---
Progress Note (short form) - Note Progress Note: HPI: HPI limited due to patient's clinical history. pt without distress and no acute events overnight. On VM50% PE: Vital Signs Temperature 97.4 F L 02/08/19 06:21 Pulse Rate 67 02/08/19 06:21 Respiratory Rate 20 02/08/19 06:21 Blood Pressure 102/72 02/08/19 06:21 O2 Sat by Pulse Oximetry (%) 96 02/07/19 22:00 GEN: NAD, awake/responds with voice, nonverbal Neck: No JVD Lungs: Limited inspiratory efort, improved breath sounds b/l, no accessory muscle use VM50% CARD: RRR, no murmurs appreciated ABD: Soft, NT/ND, normoactive BS, PEG without any erythema or secretions around stoma EXT: Contracted, Warm, well-perfused, contracted Skin: No rashes or lesions appreciated Active Medications Acyclovir (Zovirax Oral Suspension -) 400 mg GT BID [facility] Last Admin: 02/08/19 10:32 Dose: 400 mg Albuterol/Ipratropium (Duoneb -) 1 amp NEB RQID [facility] Last Admin: 02/08/19 11:39 Dose: 1 amp Baclofen (Lioresal -) 10 mg GT BID [facility] Last Admin: 02/08/19 10:29 Dose: 10 mg Budesonide (Pulmicort 0.25 Mg Nebulizer -) 1 amp NEB RBID [facility] Last Admin: 02/08/19 07:42 Dose: 1 amp Clobazam (Onfi -) 10 mg GT HS [facility] Last Admin: 02/07/19 22:15 Dose: 10 mg Clobazam (Onfi -) 5 mg GT DAILY [facility] Last Admin: 02/08/19 10:31 Dose: 5 mg Clonazepam (Klonopin -) 1.5 mg GT TID [facility] Last Admin: 02/08/19 06:18 Dose: 1.5 mg Diazepam (Diastat Rectal Gel -) 7.5 mg RC PRN PRN PRN Reason: <Seizures> Enoxaparin Sodium (Lovenox -) 30 mg SQ DAILY [facility] Last Admin: 02/08/19 10:29 Dose: 30 mg Fluticasone Propionate (Flonase -) 2 spray NS AM [facility] Last Admin: 02/08/19 06:19 Dose: 2 sprays Piperacillin Sod/Tazobactam (Sod 3.375 gm/ Dextrose) 50 mls @ 100 mls/hr IVPB Q8H-IV [facility]; Protocol Last Admin: 02/08/19 10:28 Dose: 100 mls/hr Lactobacillus Acidophilus (Bacid -) 1 tab GT HS [facility] Last Admin: 02/07/19 22:14 Dose: 1 tab Lamotrigine (Lamictal -) 200 mg GT BID [facility] Last Admin: 02/08/19 10:30 Dose: 200 mg Lorazepam (Ativan Injection -) 2 mg IVPUSH Q6H PRN PRN Reason: RECENT SEIZURES Magnesium Hydroxide (Milk Of Magnesia -) 20 ml GT BID [facility] Last Admin: 02/08/19 11:53 Dose: 20 ml Multivitamins/Minerals (Certavite-Antioxidant Liquid) 15 ml GT DAILY [facility] Last Admin: 02/07/19 10:17 Dose: 15 ml Phenobarbital (Phenobarbital Liquid -) 45 mg GT BID [facility] Last Admin: 02/08/19 10:31 Dose: 45 mg Ranitidine HCl (Zantac Oral Solution -) 75 mg GT BID [facility] Last Admin: 02/08/19 10:29 Dose: 75 mg A/P Sepsis 2/2 to aspiration PNA Acute hypoxic respiratory distress 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 Chronic constipation GERD Transaminitis --Continue with Zosyn for aspiration PNA --Will discuss with Id about covering Klebsiella seen in sputum culture --ID on board and appreciated recommendations --Aspiration precautions to be maintained --Continue tube feeds --Discontinue IVF --Continue Chest PT --Continue Tenisha hugger PRN for hypothermia --Suspect seizure likely 2/2 to lowered threshold in acute sepsis setting --Anti-epileptics to continue: --Keppra 500mg BID IV --Lamictal 200mg GT BID --Phenobarbital 45mg BID GT --Onfi 5mg AM and 10mg HS GT --Ativan PRN for any breakthroughs along with rectal Diazepam PRN --Continue Acyclovir 400mg BID GT --Continue Klonopin 1.5mg TID GT --Flu negative and Respiratory virus panels pending --LFTs improving; continue to monitor FEN: Fluids: D/C IVF Electrolyte abnormalities: None Nutrition: Promote 20cc/hr increase 10cc q4h until goal of 45cc/hr with 30cc FW flushes PPX: DVT - Lovenox SQ GI - Ranitidine Dispo: Continue to monitor patient as feeds are reinitiated Case discussed with Dr. Milton Williamson, DO - IM PGY-3
[2019-02-08] MEDS: MULTIVIT-MINERALS ORAL LIQUID GT SCH (14:18)
[2019-02-08] MEDS: LACTOBACILLUS ACIDOPHILUS 1 TABLET GT SCH (22:14)
[2019-02-09] MEDS ORDERED: PIPERACILLIN/TAZOBACTAM 3.375 GM VIAL IVPB ONE ×4 (01:39→15:44)
[2019-02-09] MEDS ORDERED: DEXTROSE 5%-WATER - 50 ML IVPB ONE ×4 (01:39→15:44)
[2019-02-09] MEDS: PIPERACILLIN/TAZOB 3.375 GM 3.375 GM in DEXTROSE 5%-WATER - 50 ML IVPB SCH ×3 (02:05→17:37)
[2019-02-09] MEDS: clonazePAM 0.5 MG TABLET GT SCH ×3 (06:16→22:21)
[2019-02-09] MEDS: FLUTICASONE PROP 0.05% 16 GM NASAL SPRAY NS SCH (06:16)
--- NOTE | 2019-02-09 06:32 | PN ---
Progress Note (short form) - Note Progress Note: HPI: HPI limited due to patient's clinical history. pt without distress and no acute events overnight. On 2LNC 92% PE: Vital Signs Temperature 97.4 F L 02/08/19 06:21 Pulse Rate 67 02/08/19 06:21 Respiratory Rate 20 02/08/19 06:21 Blood Pressure 102/72 02/08/19 06:21 O2 Sat by Pulse Oximetry (%) 96 02/07/19 22:00 GEN: NAD, awake/responds with voice, more active today, nonverbal Neck: No JVD Lungs: Limited inspiratory effort, improved breath sounds b/l, no accessory muscle use 2LNC CARD: RRR, no murmurs appreciated ABD: Soft, NT/ND, normoactive BS, PEG without any erythema or secretions around stoma EXT: Contracted, Warm, well-perfused, contracted Skin: No rashes or lesions appreciated Active Medications Acyclovir (Zovirax Oral Suspension -) 400 mg GT BID [facility] Last Admin: 02/08/19 10:32 Dose: 400 mg Albuterol/Ipratropium (Duoneb -) 1 amp NEB RQID [facility] Last Admin: 02/08/19 11:39 Dose: 1 amp Baclofen (Lioresal -) 10 mg GT BID [facility] Last Admin: 02/08/19 10:29 Dose: 10 mg Budesonide (Pulmicort 0.25 Mg Nebulizer -) 1 amp NEB RBID [facility] Last Admin: 02/08/19 07:42 Dose: 1 amp Clobazam (Onfi -) 10 mg GT HS [facility] Last Admin: 02/07/19 22:15 Dose: 10 mg Clobazam (Onfi -) 5 mg GT DAILY [facility] Last Admin: 02/08/19 10:31 Dose: 5 mg Clonazepam (Klonopin -) 1.5 mg GT TID [facility] Last Admin: 02/08/19 06:18 Dose: 1.5 mg Diazepam (Diastat Rectal Gel -) 7.5 mg RC PRN PRN PRN Reason: <Seizures> Enoxaparin Sodium (Lovenox -) 30 mg SQ DAILY [facility] Last Admin: 02/08/19 10:29 Dose: 30 mg Fluticasone Propionate (Flonase -) 2 spray NS AM [facility] Last Admin: 02/08/19 06:19 Dose: 2 sprays Piperacillin Sod/Tazobactam (Sod 3.375 gm/ Dextrose) 50 mls @ 100 mls/hr IVPB Q8H-IV [facility]; Protocol Last Admin: 02/08/19 10:28 Dose: 100 mls/hr Lactobacillus Acidophilus (Bacid -) 1 tab GT HS [facility] Last Admin: 02/07/19 22:14 Dose: 1 tab Lamotrigine (Lamictal -) 200 mg GT BID [facility] Last Admin: 02/08/19 10:30 Dose: 200 mg Lorazepam (Ativan Injection -) 2 mg IVPUSH Q6H PRN PRN Reason: RECENT SEIZURES Magnesium Hydroxide (Milk Of Magnesia -) 20 ml GT BID [facility] Last Admin: 02/08/19 11:53 Dose: 20 ml Multivitamins/Minerals (Certavite-Antioxidant Liquid) 15 ml GT DAILY [facility] Last Admin: 02/07/19 10:17 Dose: 15 ml Phenobarbital (Phenobarbital Liquid -) 45 mg GT BID [facility] Last Admin: 02/08/19 10:31 Dose: 45 mg Ranitidine HCl (Zantac Oral Solution -) 75 mg GT BID [facility] Last Admin: 02/08/19 10:29 Dose: 75 mg A/P Sepsis 2/2 to aspiration PNA Acute hypoxic respiratory distress 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 Chronic constipation GERD Transaminitis Functional Quadriplegia --Continue with Zosyn (day 4) --Sputum culture likely colonization due to patient's improvement --ID on board and appreciated recommendations --Aspiration precautions to be maintained --Continue tube feeds --Continue Chest PT --Continue Tenisha hugger PRN for hypothermia --Normothermic this morning --Suspect seizure likely 2/2 to lowered threshold in acute sepsis setting --Anti-epileptics to continue: --Lamictal 200mg GT BID --Phenobarbital 45mg BID GT --Onfi 5mg AM and 10mg HS GT --rectal Diazepam PRN; d/c Ativan dose when diazepam there --Seizure precautions --Continue Acyclovir 400mg BID GT --Continue Klonopin 1.5mg TID GT --Flu negative and Respiratory virus panels pending --LFTs improving; continue to monitor --Frequent turning/offloading FEN: Fluids: Tube feeds Electrolyte abnormalities: Labs pending; will f/u Nutrition: Promote 20cc/hr increase 10cc q4h until goal of 45cc/hr with 30cc FW flushes PPX: DVT - Lovenox SQ GI - Ranitidine Dispo: D/C planning; anticipate 1 more day Case discussed with Dr. Michelle Williamson, DO - IM PGY-3 <Clifford Williamson - Last Filed: 02/09/19 10:09> - Note Progress Note: Seen and examined; please see resident note for further historical details. I personally verified all vital parts of history and physical examination. 10 sys ROS unable to be completed VS, labs, imaging reviewed Euvolemic Coarse breath sounds but poor effort limits exam NT ND +BS Neuro exam unchanged; no sz activity witnessed. Please see the resident ntoe for all problems. For the sepsis they continue on zosyn (sputum cx reviewed-likely colonization) Continue on AEDs as recommended by neuro for seizures-threshold lowered in setting of sepsis Followup viral pannel Monitor LFTs; GI input noted. Continue feeds-recs noted Overall will continue to monitor for improvement and further seizure activity; will need to convert to PO and wean from O2. <Stuart Martinez - Last Filed: 02/09/19 19:38>
[2019-02-09 06:48] LABS: HEMATOCRIT 37.8 % (35.4-49); MCH 34.7 pg (25.7-33.7); MCHC 34.3 g/dl (32.0-35.9); MEAN CELL VOLUME 101.2 fl (80-96); MEAN PLT VOLUME 9.6 fl (7.5-11.1); PLATELET COUNT 202 K/MM3 (134-434); RBC 3.74 M/mm3 (4.00-5.60); RDW 16.2 % (11.9-15.9); WHITE BLOOD COUNT 6.4 K/mm3 (4.0-10.0)
[2019-02-09] MEDS ORDERED: BUDESONIDE 0.5 MG/2 ML INH SUSP VIAL NEB ONE (07:28)
[2019-02-09] MEDS: ALBUTEROL SO4 2.5/IPRATROPIUM 0.5 INH SOL 3 ML VIAL.NEB. NEB SCH ×4 (07:30→20:17)
[2019-02-09 07:35] LABS: ALBUMIN 3.1 g/dl (3.4-5.0); BILIRUBIN,TOTAL 0.3 mg/dL (0.2-1); BLOOD UREA NITROGEN 8.1 mg/dL (7-18); CALCIUM 9.1 mg/dL (8.5-10.1); CREATININE 0.7 mg/dL (0.55-1.3); POTASSIUM 4.1 mmol/L (3.5-5.1); TOT PROT 7.5 g/dl (6.4-8.2)
[2019-02-09] MEDS: BUDESONIDE 0.25 MG/2ML INH SUSP VIAL NEB SCH ×2 (07:35→20:17)
[2019-02-09] MEDS ORDERED: PT OWN MED DRAWER 7, Y5N ONE ×3 (09:32→22:32)
[2019-02-09] MEDS: MULTIVIT-MINERALS ORAL LIQUID GT SCH (11:21)
[2019-02-09] MEDS: MAGNESIUM HYDROX 2400MG/30ML ORAL SUSPENSION 30 ML CUP GT SCH ×2 (11:23→22:23)
[2019-02-09] MEDS: ENOXAPARIN NA (PORCINE) 30 MG/0.3 ML DISP.SYRIN SQ SCH (11:23)
[2019-02-09] MEDS: BACLOFEN 10 MG TABLET (FP) GT SCH ×2 (11:23→22:23)
[2019-02-09] MEDS: cloBAZam 10 MG TABLET GT SCH ×2 (11:24→22:21)
[2019-02-09] MEDS: RANITIDINE HCL 150 MG/10 ML UNIT-DOSE GT SCH ×2 (11:27→22:26)
[2019-02-09] MEDS: ACYCLOVIR 200 MG/5 ML LIQUID GT SCH ×2 (11:29→22:41)
[2019-02-09] MEDS: PHENobarbital 20 MG/5 ML UNIT-DOSE CUP GT SCH ×2 (11:30→22:34)
[2019-02-09] MEDS: lamoTRIgine 100 MG TABLET (FP) GT SCH ×3 (11:57→22:22)
--- NOTE | 2019-02-09 19:06 | PN ---
Progress Note, Physician History of Present Illness: events noted Chart reviewed Phenobarb 20 Adjusted - Current Medication List Current Medications: Active Medications Acyclovir (Zovirax Oral Suspension -) 400 mg GT BID [facility] Last Admin: 02/09/19 11:29 Dose: 400 mg Albuterol/Ipratropium (Duoneb -) 1 amp NEB RQID [facility] Last Admin: 02/09/19 15:15 Dose: 1 amp Baclofen (Lioresal -) 10 mg GT BID [facility] Last Admin: 02/09/19 11:23 Dose: 10 mg Budesonide (Pulmicort 0.25 Mg Nebulizer -) 1 amp NEB RBID [facility] Last Admin: 02/09/19 07:35 Dose: 1 amp Clobazam (Onfi -) 10 mg GT HS [facility] Last Admin: 02/08/19 22:14 Dose: 10 mg Clobazam (Onfi -) 5 mg GT DAILY [facility] Last Admin: 02/09/19 11:24 Dose: 5 mg Clonazepam (Klonopin -) 1.5 mg GT TID [facility] Last Admin: 02/09/19 13:32 Dose: 1.5 mg Diazepam (Diastat Rectal Gel -) 7.5 mg RC PRN PRN PRN Reason: <Seizures> Enoxaparin Sodium (Lovenox -) 30 mg SQ DAILY [facility] Last Admin: 02/09/19 11:23 Dose: 30 mg Fluticasone Propionate (Flonase -) 2 spray NS AM [facility] Last Admin: 02/09/19 06:16 Dose: 2 sprays Piperacillin Sod/Tazobactam (Sod 3.375 gm/ Dextrose) 50 mls @ 100 mls/hr IVPB Q8H-IV JOR[facility]; Protocol Last Admin: 02/09/19 17:37 Dose: 100 mls/hr Lactobacillus Acidophilus (Bacid -) 1 tab GT [facility] Last Admin: 02/08/19 22:14 Dose: 1 tab Lamotrigine (Lamictal -) 200 mg GT BID [facility] Last Admin: 02/09/19 13:07 Dose: 200 mg Magnesium Hydroxide (Milk Of Magnesia -) 20 ml GT BID [facility] Last Admin: 02/09/19 11:23 Dose: Not Given Multivitamins/Minerals (Certavite-Antioxidant Liquid) 15 ml GT DAILY [facility] Last Admin: 02/09/19 11:21 Dose: 15 ml Phenobarbital (Phenobarbital Liquid -) 60 mg PO BID [facility] Ranitidine HCl (Zantac Oral Solution -) 75 mg GT BID [facility] Last Admin: 02/09/19 11:27 Dose: 75 mg - Objective Vital Signs: Vital Signs Temperature 97.7 F 02/09/19 16:30 Pulse Rate 95 H 02/09/19 17:31 Respiratory Rate 18 02/09/19 16:30 Blood Pressure 93/51 L 02/09/19 16:30 O2 Sat by Pulse Oximetry (%) 96 02/09/19 17:31 Constitutional: Yes: Well Nourished Neurological: Yes: Alert (contracted no ps movements) Labs: CBC, BMP 02/09/19 06:04 02/09/19 06:18 INR, PTT INR Cancelled 02/05/19 22:35 Problem List - Problems (1) Seizure Assessment/Plan: Sz precautions Phenobarb 60 mg po GT bid lamictel level Code(s): R56.9 - UNSPECIFIED CONVULSIONS
[2019-02-09] MEDS: LACTOBACILLUS ACIDOPHILUS 1 TABLET GT SCH (22:19)
[2019-02-10] MEDS ORDERED: DEXTROSE 5%-WATER - 50 ML IVPB ONE ×3 (01:17→17:49)
[2019-02-10] MEDS ORDERED: PIPERACILLIN/TAZOBACTAM 3.375 GM VIAL IVPB ONE ×3 (01:17→17:49)
[2019-02-10] MEDS: PIPERACILLIN/TAZOB 3.375 GM 3.375 GM in DEXTROSE 5%-WATER - 50 ML IVPB SCH ×3 (01:25→17:55)
[2019-02-10] MEDS ORDERED: SODIUM CHLORIDE 0.9% 500 ML INFUS.BAG IV ONE (01:56)
[2019-02-10] MEDS ORDERED: SODIUM CHLORIDE 500 ML IV STA (02:07)
--- NOTE | 2019-02-10 02:13 | PN ---
Progress Note (short form) - Note Progress Note: Received a call form nurse stating that patient was hypotensive at 85/28. HR 49 , 99%O2, 99.4 rectal temp. Patient seen at bedside - sleeping comfortably in no acute distress. as per nurse, patient has been more lethargic than before. BP cuff used on patient was the appropriate size. Repeat BP in the 90s/40s. Per chart review, this reading is close to patient's baseline. Will monitor and re-evaluate BP, if necessary will give fluids. Physical Exam: Constitutional: resting, no acute distress Eyes: PERRL Cardio: normal S1, S2. no murmurs Resp: clear to auscultation bilaterally, no wheezing, rhonchi, rales, crackles Abd: soft, nontender, nondistended Upon re-evaluation BP stable in the 90s/40s. MAP in the 60s. Patient stable, will continue to monitor. <Halima Camacho - Last Filed: 02/10/19 03:12> - Note Progress Note: Overnight event noted. <Stuart Martinez - Last Filed: 02/10/19 09:30>
[2019-02-10] MEDS: FLUTICASONE PROP 0.05% 16 GM NASAL SPRAY NS SCH (06:51)
[2019-02-10] MEDS: clonazePAM 0.5 MG TABLET GT SCH ×3 (06:51→21:11)
[2019-02-10 07:02] LABS: HEMATOCRIT 35.1 % (35.4-49); HEMOGLOBIN 12.2 GM/dL (11.7-16.9); MCH 35.1 pg (25.7-33.7); MCHC 34.7 g/dl (32.0-35.9); MEAN PLT VOLUME 9.5 fl (7.5-11.1); PLATELET COUNT 198 K/MM3 (134-434); RBC 3.47 M/mm3 (4.00-5.60); RDW 15.8 % (11.9-15.9); WHITE BLOOD COUNT 4.8 K/mm3 (4.0-10.0)
[2019-02-10 07:29] LABS: BLOOD UREA NITROGEN 10.2 mg/dL (7-18); CALCIUM 8.8 mg/dL (8.5-10.1); CREATININE 0.6 mg/dL (0.55-1.3); POTASSIUM 4.3 mmol/L (3.5-5.1)
[2019-02-10] MEDS: ALBUTEROL SO4 2.5/IPRATROPIUM 0.5 INH SOL 3 ML VIAL.NEB. NEB SCH ×4 (07:35→20:17)
[2019-02-10] MEDS: BUDESONIDE 0.25 MG/2ML INH SUSP VIAL NEB SCH ×2 (07:35→20:17)
[2019-02-10] MEDS ORDERED: PT OWN MED DRAWER 7, Y5N ONE ×3 (09:19→20:35)
[2019-02-10] MEDS: PHENobarbital 20 MG/5 ML UNIT-DOSE CUP GT SCH ×2 (09:22→21:12)
[2019-02-10] MEDS: RANITIDINE HCL 150 MG/10 ML UNIT-DOSE GT SCH ×2 (09:23→21:13)
[2019-02-10] MEDS: MAGNESIUM HYDROX 2400MG/30ML ORAL SUSPENSION 30 ML CUP GT SCH ×2 (09:24→21:19)
[2019-02-10] MEDS: BACLOFEN 10 MG TABLET (FP) GT SCH ×2 (09:26→21:11)
[2019-02-10] MEDS: cloBAZam 10 MG TABLET GT SCH ×2 (09:26→21:11)
[2019-02-10] MEDS: ENOXAPARIN NA (PORCINE) 30 MG/0.3 ML DISP.SYRIN SQ SCH (09:26)
[2019-02-10] MEDS: lamoTRIgine 100 MG TABLET (FP) GT SCH ×2 (09:26→21:11)
--- NOTE | 2019-02-10 10:57 | PN ---
Progress Note, Physician History of Present Illness: NOT VERBALLY RESPONSIVE SLIGHTLY TACHYPNEIC ON NASAL CANNULA O2 HYPOTHERMIC T 97.2 + SECRETIONS BC (-) SPUTUM C/S MIXED - Current Medication List Current Medications: Active Medications Acyclovir (Zovirax Oral Suspension -) 400 mg GT BID [facility] Last Admin: 02/09/19 22:41 Dose: 400 mg Albuterol/Ipratropium (Duoneb -) 1 amp NEB RQID [facility] Last Admin: 02/10/19 07:35 Dose: 1 amp Baclofen (Lioresal -) 10 mg GT BID [facility] Last Admin: 02/10/19 09:26 Dose: 10 mg Budesonide (Pulmicort 0.25 Mg Nebulizer -) 1 amp NEB RBID [facility] Last Admin: 02/10/19 07:35 Dose: 1 amp Clobazam (Onfi -) 10 mg GT HS [facility] Last Admin: 02/09/19 22:21 Dose: 10 mg Clobazam (Onfi -) 5 mg GT DAILY [facility] Last Admin: 02/10/19 09:26 Dose: 5 mg Clonazepam (Klonopin -) 1.5 mg GT TID [facility] Last Admin: 02/10/19 06:51 Dose: 1.5 mg Diazepam (Diastat Rectal Gel -) 7.5 mg RC PRN PRN PRN Reason: <Seizures> Enoxaparin Sodium (Lovenox -) 30 mg SQ DAILY [facility] Last Admin: 02/10/19 09:26 Dose: 30 mg Fluticasone Propionate (Flonase -) 2 spray NS AM [facility] Last Admin: 02/10/19 06:51 Dose: 2 sprays Piperacillin Sod/Tazobactam (Sod 3.375 gm/ Dextrose) 50 mls @ 100 mls/hr IVPB Q8H-IV JORGE; Protocol Last Admin: 02/10/19 09:22 Dose: 100 mls/hr Lactobacillus Acidophilus (Bacid -) 1 tab GT HS [facility] Last Admin: 02/09/19 22:19 Dose: 1 tab Lamotrigine (Lamictal -) 200 mg GT BID [facility] Last Admin: 02/10/19 09:26 Dose: 200 mg Magnesium Hydroxide (Milk Of Magnesia -) 20 ml GT BID [facility] Last Admin: 02/10/19 09:24 Dose: 20 ml Multivitamins/Minerals (Certavite-Antioxidant Liquid) 15 ml GT DAILY [facility] Last Admin: 02/09/19 11:21 Dose: 15 ml Phenobarbital (Phenobarbital Liquid -) 60 mg GT BID [facility] Last Admin: 02/10/19 09:22 Dose: 60 mg Ranitidine HCl (Zantac Oral Solution -) 75 mg GT BID [facility] Last Admin: 02/10/19 09:23 Dose: 75 mg - Objective Vital Signs: Vital Signs Temperature 97.6 F 02/10/19 06:57 Pulse Rate 54 L 02/10/19 06:57 Respiratory Rate 20 02/10/19 06:57 Blood Pressure 92/58 L 02/10/19 06:57 O2 Sat by Pulse Oximetry (%) 96 02/10/19 06:00 Constitutional: Yes: No Distress Cardiovascular: Yes: Regular Rate and Rhythm, S1, S2 Respiratory: Yes: Rhonchi Gastrointestinal: Yes: Normal Bowel Sounds, Soft. No: Tenderness Labs: CBC, BMP 02/10/19 06:11 02/10/19 06:11 INR, PTT INR Cancelled 02/05/19 22:35 Assessment/Plan PROBABLE ASPIRATION PNEUMONIA HYPOTHERMIA SEIZURE DISORDER CP/MR SPUTUM C/S MIXED, LIKELY COLONIZATION CONTINUE ZOSYN REPEAT CHEST IMAGING
[2019-02-10] MEDS: MULTIVIT-MINERALS ORAL LIQUID GT SCH (11:12)
[2019-02-10] MEDS: ACYCLOVIR 200 MG/5 ML LIQUID GT SCH ×2 (11:12→21:11)
--- NOTE | 2019-02-10 11:35 | CON.PULM ---
Consult Consult Specialty:: PULM/CCM Referred by:: Hospitalist Reason for Consultation:: PNA - History of Present Illness Chief Complaint: SOB History of Present Illness: 23 M, known to me from previous admissions. Cerebral palsy, epilepsy, supposed asthma, herpes encephalitis, recurrent aspiration PNA, and GERD. Admitted via the ER from [facility] as he was noted t have a seizure. Reportedly lasted for 10 minutes. Noted to be "gurgling" and O2 saturation noted to drop to the 80's. Patient in not able to provide any information. He is in NAD receiving a BD TX at this time. CXR: new RLL infiltrate compared to previous imaging. 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 No: Cancer, COPD, Previously Intubated, Pulmonary Embolus, Pulmonary Fibrosis, Sleep Apnea Gastrointestinal: Yes: Other (gastrostomy) Infectious Disease: Yes: Herpes Zoster Musculoskeletal: Yes: Other (Functional Qaudraplegic) - Alcohol/Substance Use Hx Alcohol Use: No - Smoking History Smoking history: Never smoked Have you smoked in the past 12 months: No Aproximately how many cigarettes per day: 0 - Social History Usual Living Arrangement: Custodial ADL: Support Services History of Recent Travel: No Home Medications - Allergies Allergies/Adverse Reactions: Allergies Allergy/AdvReac Type Severity Reaction Status Date / Time No Known Allergies Allergy Verified 02/05/19 18:53 - Home Medications Home Medications: Ambulatory Orders Acyclovir 400 mg GT BID 04/25/17 Baclofen 10 mg GT BID 04/25/17 Clobazam [Onfi -] 10 mg GT HS 04/25/17 Clonazepam 1.5 mg GT TID 04/25/17 Lactobacillus Acidophilus [Acidophilus] 1 each GT HS 04/25/17 Lamotrigine 200 mg GT BID 04/25/17 Multivitamin [Poly-Vitamin] 1 each GT HS 04/25/17 Phenobarbital 48.6 mg GT BID 04/25/17 Ranitidine [Zantac -] 75 mg GT BID #0 tab 03/29/18 Diazepam Rectal Gel [Diastat Rectal Gel -] 7.5 mg HI PRN PRN 05/23/18 Fructooligosaccharides/Polydex [Fiber-Stat 15 gm/30 ml Liquid] 15 gm GT HS 05/23 Protein Supplement [Promod] 946 ml GT DAILY 05/23/18 Albuterol 2.5/Ipratropium 0.5 [Duoneb -] 1 neb IH QID 02/05/19 Budesonide [Pulmicort 0.25 mg -] 1 neb IH BID 02/05/19 Clobazam [Sympazan] 5 mg GT DAILY 02/05/19 Fluticasone Prop 0.05% Nasal [Flonase -] 2 spray NS AM 02/05/19 Magnesium Hydrox 2400MG/30Ml [Milk of Magnesia -] 20 ml GT BID 02/05/19 Review of Systems Unable to obtain ROS, reason: not able to provide Physical Exam Vital Sings: Vital Signs Temperature 97.2 F L 02/10/19 10:00 Pulse Rate 52 L 02/10/19 10:00 Respiratory Rate 18 02/10/19 10:00 Blood Pressure 87/54 L 02/10/19 10:00 O2 Sat by Pulse Oximetry (%) 100 02/10/19 10:00 Constitutional: Yes: No Distress, Thin Eyes: Yes: Conjunctiva Clear, EOM Intact HENT: Yes: Atraumatic, Normocephalic Neck: Yes: Supple, Trachea Midline Cardiovascular: Yes: Tachycardia Respiratory: Yes: Cough, Diminished, On Nasal O2, Rhonchi, Tachypnea. No: Accessory Muscle Use, Rales, SOB, SOB on Exertion, Stridor, Wheezes ...Inspection: Yes: Kyphosis, Scoliosis. No: Use of Accessory Muscles Gastrointestinal: Yes: Normal Bowel Sounds, Soft, Other (GT ) Musculoskeletal: Yes: Joint Stiffness Extremities: Yes: Deformity, Shortened Edema: No Peripheral Pulses WNL: Yes Integumentary: Yes: WNL Neurological: Yes: Pre-Existing Deficit Labs: CBC, BMP 02/10/19 06:11 02/10/19 06:11 ABG Results ABG pH 7.35 (7.35-7.45) 02/06/19 10:50 ABG pCO2 at Pt Temp 47.6 mmHg (35-45) H 02/06/19 10:50 ABG pO2 at Pt Temp 193 mmHg (80-100) H 02/06/19 10:50 ABG HCO3 25.5 mmol/L (22-27) 02/06/19 10:50 ABG O2 Sat (Measured) 99.6 % (95-98) H 02/06/19 10:50 ABG O2 Content 18.6 % vol 02/06/19 10:50 ABG Base Excess -0.1 meq/l (-2-2) 02/06/19 10:50 Imaging - Results Chest X-ray: Report Reviewed, Image Reviewed Problem List - Problems (1) Aspiration pneumonia Code(s): J69.0 - PNEUMONITIS DUE TO INHALATION OF FOOD AND VOMIT Qualifiers: Aspiration pneumonia type: unspecified Laterality: right Lung location: lower lobe of lung Qualified Code(s): J69.0 - Pneumonitis due to inhalation of food and vomit (2) Shortness of breath Code(s): R06.02 - SHORTNESS OF BREATH (3) Acute hypoxemic respiratory failure Code(s): J96.01 - ACUTE RESPIRATORY FAILURE WITH HYPOXIA (4) Profound mental retardation Code(s): F73 - PROFOUND INTELLECTUAL DISABILITIES (5) Seizure Code(s): R56.9 - UNSPECIFIED CONVULSIONS (6) PNA (pneumonia) Code(s): J18.9 - PNEUMONIA, UNSPECIFIED ORGANISM (7) Asthma Code(s): J45.909 - UNSPECIFIED ASTHMA, UNCOMPLICATED (8) Epilepsy Code(s): G40.909 - EPILEPSY, UNSP, NOT INTRACTABLE, WITHOUT STATUS EPILEPTICUS (9) PEG (percutaneous endoscopic gastrostomy) status Code(s): Z93.1 - GASTROSTOMY STATUS (10) Aspiration pneumonia Code(s): J69.0 - PNEUMONITIS DUE TO INHALATION OF FOOD AND VOMIT (11) Hypothermia Code(s): T68.XXXA - HYPOTHERMIA, INITIAL ENCOUNTER Assessment/Plan Noted Zosyn per ID. If CXR improved may be able to change to oral/PEG coverage and DC back to [facility] CXR was ordered Supplemental O2 as needed Aspiration precautions VTE prophylaxis AEDs as ordered BD TX At this point, no benefit from systemic steroids Will follow Thank you. Dr Price
[2019-02-10 15:01] LABS: ARTERIAL BLD GAS O2 SATURATION 88.2 % (95-98); ARTERIAL BLOOD GAS BASE EXCESS 5.8 meq/l (-2-2); ARTERIAL BLOOD GAS PO2 52.7 mmHg (80-100); ARTERIAL BLOOD GAS pH 7.45 (7.35-7.45)
[2019-02-10 15:03] LABS: ALLENS TEST POSITIVE
--- NOTE | 2019-02-10 20:38 | PN ---
Progress Note (short form) - Note Progress Note: UPDATE: acute desaturation to 83% with slight improvement with positional changes. Chest PT performed with improvement to sat to 90% on VM50%. Likely mucus plugging. CXR today reviewed prior with improvement of PNA. ABg ordered for r/o underlying processes --> reviewed HPI: HPI limited due to patient's clinical history. pt without distress and no acute events overnight. PE: Vital Signs Temperature 97.4 F L 02/08/19 06:21 Pulse Rate 67 02/08/19 06:21 Respiratory Rate 20 02/08/19 06:21 Blood Pressure 102/72 02/08/19 06:21 O2 Sat by Pulse Oximetry (%) 96 02/07/19 22:00 GEN: NAD, awake/responds with voice, more active today, nonverbal Neck: No JVD Lungs: Limited inspiratory effort, improved breath sounds b/l, no accessory muscle use 4LNC, multiple secretions CARD: RRR, no murmurs appreciated ABD: Soft, NT/ND, normoactive BS, PEG without any erythema or secretions around stoma EXT: Contracted, Warm, well-perfused, contracted Skin: No rashes or lesions appreciated Active Medications Acyclovir (Zovirax Oral Suspension -) 400 mg GT BID [facility] Last Admin: 02/10/19 11:12 Dose: 400 mg Albuterol/Ipratropium (Duoneb -) 1 amp NEB RQID [facility] Last Admin: 02/10/19 20:17 Dose: 1 amp Baclofen (Lioresal -) 10 mg GT BID [facility] Last Admin: 02/10/19 09:26 Dose: 10 mg Budesonide (Pulmicort 0.25 Mg Nebulizer -) 1 amp NEB RBID [facility] Last Admin: 02/10/19 20:17 Dose: 1 amp Clobazam (Onfi -) 10 mg GT HS [facility] Last Admin: 02/09/19 22:21 Dose: 10 mg Clobazam (Onfi -) 5 mg GT DAILY [facility] Last Admin: 02/10/19 09:26 Dose: 5 mg Clonazepam (Klonopin -) 1.5 mg GT TID [facility] Last Admin: 02/10/19 13:15 Dose: 1.5 mg Diazepam (Diastat Rectal Gel -) 7.5 mg RC PRN PRN PRN Reason: <Seizures> Enoxaparin Sodium (Lovenox -) 30 mg SQ DAILY [facility] Last Admin: 02/10/19 09:26 Dose: 30 mg Fluticasone Propionate (Flonase -) 2 spray NS AM [facility] Last Admin: 02/10/19 06:51 Dose: 2 sprays Piperacillin Sod/Tazobactam (Sod 3.375 gm/ Dextrose) 50 mls @ 100 mls/hr IVPB Q8H-IV JOR[facility]; Protocol Last Admin: 02/10/19 17:55 Dose: 100 mls/hr Lactobacillus Acidophilus (Bacid -) 1 tab GT HS [facility] Last Admin: 02/09/19 22:19 Dose: 1 tab Lamotrigine (Lamictal -) 200 mg GT BID [facility] Last Admin: 02/10/19 09:26 Dose: 200 mg Magnesium Hydroxide (Milk Of Magnesia -) 20 ml GT BID [facility] Last Admin: 02/10/19 09:24 Dose: 20 ml Multivitamins/Minerals (Certavite-Antioxidant Liquid) 15 ml GT DAILY [facility] Last Admin: 02/10/19 11:12 Dose: 15 ml Phenobarbital (Phenobarbital Liquid -) 60 mg GT BID [facility] Last Admin: 02/10/19 09:22 Dose: 60 mg Ranitidine HCl (Zantac Oral Solution -) 75 mg GT BID [facility] Last Admin: 02/10/19 09:23 Dose: 75 mg Microbiology 02/05/19 19:45 Blood - Peripheral Venous Blood Culture - Final NO GROWTH AFTER 5 DAYS INCUBATION 02/05/19 19:15 Blood - Peripheral Venous Blood Culture - Final NO GROWTH AFTER 5 DAYS INCUBATION 02/06/19 12:52 Sputum - Oropharynx Suctioned Sputum Gram Stain - Final 02/06/19 12:52 Sputum - Oropharynx Suctioned Sputum Sputum Culture - Final Pseudomonas Aeruginosa Klebsiella Pneumoniae Beta Hem Streptococcus Group G 02/06/19 14:35 Urine For Antigen Detection Legionella Antigen - Final 02/06/19 14:35 Urine For Antigen Detection Streptococcus pneumoniae Antigen (M - Final A/P Sepsis 2/2 to aspiration PNA Acute hypoxic respiratory distress 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 Chronic constipation GERD Transaminitis Functional Quadriplegia --Continue with Zosyn (day 5) --Sputum culture likely colonization due to patient's improvement --ID on board and appreciated recommendations --Aspiration precautions to be maintained --Continue tube feeds --Continue Chest PT --Continue Tenisha hugger PRN for hypothermia --repeat CXR today for interval improvement --Pre-/post- --Suspect seizure likely 2/2 to lowered threshold in acute sepsis setting --Anti-epileptics to continue: --Lamictal 200mg GT BID --Phenobarbital 45mg BID GT --Onfi 5mg AM and 10mg HS GT --rectal Diazepam PRN; d/c Ativan dose when diazepam there --Seizure precautions --Continue Acyclovir 400mg BID GT --Continue Klonopin 1.5mg TID GT --Flu negative and Respiratory virus panels pending --LFTs improving; continue to monitor --Frequent turning/offloading FEN: Fluids: Tube feeds Electrolyte abnormalities: Labs pending; will f/u Nutrition: Promote 20cc/hr increase 10cc q4h until goal of 45cc/hr with 30cc FW flushes PPX: DVT - Lovenox SQ GI - Ranitidine Dispo: D/C planning Case discussed with Dr. Michelle Williamson, DO - IM PGY-3 <Clifford Williamson - Last Filed: 02/10/19 20:38> - Note Progress Note: Noted acute episode of desaturation; likely 2/2 mucus plug. Held DC Consulting Pulmonary this AM for further assessment. VS, labs, imaigng reviewed Poor compliance with lung exam but no eden issues NAD, AAO, resting in bed. Was off O2. NT ND +BS CN exam unchanged with no FND Not agitated, tracks. A/P: -Unchanged from previous day. Will followup recs of subspecialty and see if systemic steroids are indicated -Monitor on floor Full Code Remains acutely ill and requires inpatiuent care 40 minutes of time spent in the care of this paitent <Stuart Martinez - Last Filed: 02/11/19 00:02>
[2019-02-10] MEDS: LACTOBACILLUS ACIDOPHILUS 1 TABLET GT SCH (21:35)
[2019-02-11] MEDS ORDERED: PIPERACILLIN/TAZOBACTAM 3.375 GM VIAL IVPB ONE ×3 (00:35→18:15)
[2019-02-11] MEDS ORDERED: DEXTROSE 5%-WATER - 50 ML IVPB ONE ×3 (00:35→18:16)
[2019-02-11] MEDS: PIPERACILLIN/TAZOB 3.375 GM 3.375 GM in DEXTROSE 5%-WATER - 50 ML IVPB SCH ×3 (01:34→18:22)
[2019-02-11] MEDS: clonazePAM 0.5 MG TABLET GT SCH ×3 (05:52→21:04)
[2019-02-11] MEDS: FLUTICASONE PROP 0.05% 16 GM NASAL SPRAY NS SCH (06:17)
[2019-02-11] MEDS ORDERED: INSULIN (NOVOLOG) ASPART 100 UNITS/ML 10ML VIAL ONE (07:53)
[2019-02-11] MEDS ORDERED: PT OWN MED DRAWER 7, Y5N ONE ×2 (09:41→09:50)
[2019-02-11] MEDS: BACLOFEN 10 MG TABLET (FP) GT SCH ×2 (09:44→21:05)
[2019-02-11] MEDS: cloBAZam 10 MG TABLET GT SCH ×2 (09:44→21:05)
[2019-02-11] MEDS: RANITIDINE HCL 150 MG/10 ML UNIT-DOSE GT SCH ×2 (09:45→21:04)
[2019-02-11] MEDS: MAGNESIUM HYDROX 2400MG/30ML ORAL SUSPENSION 30 ML CUP GT SCH ×2 (09:45→21:04)
[2019-02-11] MEDS: ENOXAPARIN NA (PORCINE) 30 MG/0.3 ML DISP.SYRIN SQ SCH (09:46)
[2019-02-11] MEDS: lamoTRIgine 100 MG TABLET (FP) GT SCH ×2 (09:46→21:05)
[2019-02-11] MEDS: PHENobarbital 20 MG/5 ML UNIT-DOSE CUP GT SCH ×2 (09:48→21:05)
[2019-02-11] MEDS: MULTIVIT-MINERALS ORAL LIQUID GT SCH (09:50)
[2019-02-11] MEDS: ACYCLOVIR 200 MG/5 ML LIQUID GT SCH ×2 (09:52→21:05)
[2019-02-11] MEDS: ALBUTEROL SO4 2.5/IPRATROPIUM 0.5 INH SOL 3 ML VIAL.NEB. NEB SCH ×4 (10:30→20:12)
[2019-02-11] MEDS: BUDESONIDE 0.25 MG/2ML INH SUSP VIAL NEB SCH ×2 (10:31→20:13)
--- NOTE | 2019-02-11 10:34 | PN ---
Teaching Attending Note Name of Resident: Clifford Williamson ATTENDING PHYSICIAN STATEMENT I saw and evaluated the patient. I reviewed the resident's note and discussed the case with the resident. I agree with the resident's findings and plan as documented. Seen and examined; no issues reported overnight. History limited due to underlying clinical condition VS, labs, imaging reviewed. PE remains essentially unchanged. NAD, AAO, on O2 Neurologically unchanged, tracking and moving all 4 extremities. NT ND +BS Not agitated, cannot participate in full psych exam. RRR s1/2 Lungs w/ scattered ronchi; w/ sym exp, can't participate in exam All diagnostics reviewed; case discussed with consulting services. ASSESSMENT AND PLAN: Continues to remain inpatient, requires continued inpatient monitoring for patient safety due to persisting respiratory issues. Continue with O2, bronchodilators, IVABX and change to PO when acceptable with ID No indication for systemic steroids Full Code
--- NOTE | 2019-02-11 13:19 | PN ---
Progress Note (short form) - Note Progress Note: PULMONARY WELL KNOWN BY OUR SERVICE Constitutional: Yes: No Distress, Thin Eyes: Yes: Conjunctiva Clear, EOM Intact HENT: Yes: Atraumatic, Normocephalic Neck: Yes: Supple, Trachea Midline Cardiovascular: Yes: Tachycardia Respiratory: Yes: Cough, Diminished, On Nasal O2, Rhonchi, Tachypnea. No: Accessory Muscle Use, Rales, SOB, SOB on Exertion, Stridor, Wheezes ...Inspection: Yes: Kyphosis, Scoliosis. No: Use of Accessory Muscles Gastrointestinal: Yes: Normal Bowel Sounds, Soft, Other (GT ) Musculoskeletal: Yes: Joint Stiffness Extremities: Yes: Deformity, Shortened Edema: No Peripheral Pulses WNL: Yes Integumentary: Yes: WNL Neurological: Yes: Pre-Existing Deficit Labs: NOTED Imaging - Results Chest X-ray: Report Reviewed, Image Reviewed Problem List - Problems (1) Aspiration pneumonia Code(s): J69.0 - PNEUMONITIS DUE TO INHALATION OF FOOD AND VOMIT Qualifiers: Aspiration pneumonia type: unspecified Laterality: right Lung location: lower lobe of lung Qualified Code(s): J69.0 - Pneumonitis due to inhalation of food and vomit (2) Shortness of breath Code(s): R06.02 - SHORTNESS OF BREATH (3) Acute hypoxemic respiratory failure Code(s): J96.01 - ACUTE RESPIRATORY FAILURE WITH HYPOXIA (4) Profound mental retardation Code(s): F73 - PROFOUND INTELLECTUAL DISABILITIES (5) Seizure Code(s): R56.9 - UNSPECIFIED CONVULSIONS (6) PNA (pneumonia) Code(s): J18.9 - PNEUMONIA, UNSPECIFIED ORGANISM (7) Asthma Code(s): J45.909 - UNSPECIFIED ASTHMA, UNCOMPLICATED (8) Epilepsy Code(s): G40.909 - EPILEPSY, UNSP, NOT INTRACTABLE, WITHOUT STATUS EPILEPTICUS (9) PEG (percutaneous endoscopic gastrostomy) status Code(s): Z93.1 - GASTROSTOMY STATUS (10) Aspiration pneumonia Code(s): J69.0 - PNEUMONITIS DUE TO INHALATION OF FOOD AND VOMIT (11) Hypothermia Code(s): T68.XXXA - HYPOTHERMIA, INITIAL ENCOUNTER Assessment/Plan Zosyn per ID. may be able to change to oral/PEG coverage and DC back to [facility] Supplemental O2 as needed Aspiration precautions VTE prophylaxis AEDs as ordered BD TX At this point, no benefit from systemic steroids Will follow Kwame IBARRA MD
--- NOTE | 2019-02-11 13:19 | PN ---
Progress Note, Physician History of Present Illness: NOT VERBALLY RESPONSIVE BREATHING NON LABORED LOW GRADE TEMP BC (-) SPUTUM C/S MIXED CXR IMPROVED - Current Medication List Current Medications: Active Medications Acyclovir (Zovirax Oral Suspension -) 400 mg GT BID [facility] Last Admin: 02/11/19 09:52 Dose: 400 mg Albuterol/Ipratropium (Duoneb -) 1 amp NEB RQID [facility] Last Admin: 02/11/19 10:30 Dose: 1 amp Baclofen (Lioresal -) 10 mg GT BID [facility] Last Admin: 02/11/19 09:44 Dose: 10 mg Budesonide (Pulmicort 0.25 Mg Nebulizer -) 1 amp NEB RBID [facility] Last Admin: 02/11/19 10:31 Dose: 1 amp Clobazam (Onfi -) 10 mg GT HS [facility] Last Admin: 02/10/19 21:11 Dose: 10 mg Clobazam (Onfi -) 5 mg GT DAILY [facility] Last Admin: 02/11/19 09:44 Dose: 5 mg Clonazepam (Klonopin -) 1.5 mg GT TID [facility] Last Admin: 02/11/19 05:52 Dose: 1.5 mg Diazepam (Diastat Rectal Gel -) 7.5 mg RC PRN PRN PRN Reason: <Seizures> Enoxaparin Sodium (Lovenox -) 30 mg SQ DAILY [facility] Last Admin: 02/11/19 09:46 Dose: 30 mg Fluticasone Propionate (Flonase -) 2 spray NS AM [facility] Last Admin: 02/11/19 06:17 Dose: 2 sprays Piperacillin Sod/Tazobactam (Sod 3.375 gm/ Dextrose) 50 mls @ 100 mls/hr IVPB Q8H-IV JOR[facility]; Protocol Last Admin: 02/11/19 09:46 Dose: 100 mls/hr Lactobacillus Acidophilus (Bacid -) 1 tab GT HS [facility] Last Admin: 02/10/19 21:35 Dose: 1 tab Lamotrigine (Lamictal -) 200 mg GT BID [facility] Last Admin: 02/11/19 09:46 Dose: 200 mg Magnesium Hydroxide (Milk Of Magnesia -) 20 ml GT BID [facility] Last Admin: 02/11/19 09:45 Dose: 20 ml Multivitamins/Minerals (Certavite-Antioxidant Liquid) 15 ml GT DAILY [facility] Last Admin: 02/11/19 09:50 Dose: 15 ml Phenobarbital (Phenobarbital Liquid -) 60 mg GT BID [facility] Last Admin: 02/11/19 09:48 Dose: 60 mg Ranitidine HCl (Zantac Oral Solution -) 75 mg GT BID [facility] Last Admin: 02/11/19 09:45 Dose: 75 mg - Objective Vital Signs: Vital Signs Temperature 98.9 F 02/11/19 06:24 Pulse Rate 82 02/11/19 06:24 Respiratory Rate 20 02/11/19 06:24 Blood Pressure 98/50 L 02/11/19 06:24 O2 Sat by Pulse Oximetry (%) 98 02/11/19 06:00 Constitutional: Yes: No Distress Cardiovascular: Yes: Regular Rate and Rhythm, S1, S2 Respiratory: Yes: Rhonchi Gastrointestinal: Yes: Normal Bowel Sounds, Soft. No: Tenderness Labs: CBC, BMP 02/10/19 06:11 02/10/19 06:11 INR, PTT INR Cancelled 02/05/19 22:35 Assessment/Plan PROBABLE ASPIRATION PNEUMONIA S/P HYPOTHERMIA SEIZURE DISORDER CP/MR SPUTUM C/S MIXED, LIKELY COLONIZATION SUBSTITUTE AUGMENTIN BID VIA GT FOR ADDITIONAL 7D
--- NOTE | 2019-02-11 18:38 | PN ---
Progress Note (short form) - Note Progress Note: HPI: HPI limited due to patient's clinical history. pt without distress and no acute events overnight. Pt on VM50% this morning PE: Vital Signs Temperature 98.1 F 02/11/19 18:11 Pulse Rate 67 02/11/19 18:11 Respiratory Rate 20 02/11/19 18:11 Blood Pressure 114/60 02/11/19 18:11 O2 Sat by Pulse Oximetry (%) 97 02/11/19 16:00 GEN: NAD, awake/responds with voice, more active today, nonverbal Neck: No JVD Lungs: Limited inspiratory effort, coarse breath sounds b/l, no accessory muscle use VM50%, copious secretions CARD: RRR, no murmurs appreciated ABD: Soft, NT/ND, normoactive BS, PEG without any erythema or secretions around stoma EXT: Contracted, Warm, well-perfused, contracted Skin: No rashes or lesions appreciated Active Medications Acyclovir (Zovirax Oral Suspension -) 400 mg GT BID [facility] Last Admin: 02/10/19 11:12 Dose: 400 mg Albuterol/Ipratropium (Duoneb -) 1 amp NEB RQID [facility] Last Admin: 02/10/19 20:17 Dose: 1 amp Baclofen (Lioresal -) 10 mg GT BID [facility] Last Admin: 02/10/19 09:26 Dose: 10 mg Budesonide (Pulmicort 0.25 Mg Nebulizer -) 1 amp NEB RBID [facility] Last Admin: 02/10/19 20:17 Dose: 1 amp Clobazam (Onfi -) 10 mg GT HS [facility] Last Admin: 02/09/19 22:21 Dose: 10 mg Clobazam (Onfi -) 5 mg GT DAILY [facility] Last Admin: 02/10/19 09:26 Dose: 5 mg Clonazepam (Klonopin -) 1.5 mg GT TID [facility] Last Admin: 02/10/19 13:15 Dose: 1.5 mg Diazepam (Diastat Rectal Gel -) 7.5 mg RC PRN PRN PRN Reason: <Seizures> Enoxaparin Sodium (Lovenox -) 30 mg SQ DAILY [facility] Last Admin: 02/10/19 09:26 Dose: 30 mg Fluticasone Propionate (Flonase -) 2 spray NS AM [facility] Last Admin: 02/10/19 06:51 Dose: 2 sprays Piperacillin Sod/Tazobactam (Sod 3.375 gm/ Dextrose) 50 mls @ 100 mls/hr IVPB Q8H-IV JORGE; Protocol Last Admin: 02/10/19 17:55 Dose: 100 mls/hr Lactobacillus Acidophilus (Bacid -) 1 tab GT HS [facility] Last Admin: 02/09/19 22:19 Dose: 1 tab Lamotrigine (Lamictal -) 200 mg GT BID [facility] Last Admin: 02/10/19 09:26 Dose: 200 mg Magnesium Hydroxide (Milk Of Magnesia -) 20 ml GT BID [facility] Last Admin: 02/10/19 09:24 Dose: 20 ml Multivitamins/Minerals (Certavite-Antioxidant Liquid) 15 ml GT DAILY [facility] Last Admin: 02/10/19 11:12 Dose: 15 ml Phenobarbital (Phenobarbital Liquid -) 60 mg GT BID [facility] Last Admin: 02/10/19 09:22 Dose: 60 mg Ranitidine HCl (Zantac Oral Solution -) 75 mg GT BID [facility] Last Admin: 02/10/19 09:23 Dose: 75 mg Microbiology 02/05/19 19:45 Blood - Peripheral Venous Blood Culture - Final NO GROWTH AFTER 5 DAYS INCUBATION 02/05/19 19:15 Blood - Peripheral Venous Blood Culture - Final NO GROWTH AFTER 5 DAYS INCUBATION 02/06/19 12:52 Sputum - Oropharynx Suctioned Sputum Gram Stain - Final 02/06/19 12:52 Sputum - Oropharynx Suctioned Sputum Sputum Culture - Final Pseudomonas Aeruginosa Klebsiella Pneumoniae Beta Hem Streptococcus Group G 02/06/19 14:35 Urine For Antigen Detection Legionella Antigen - Final 02/06/19 14:35 Urine For Antigen Detection Streptococcus pneumoniae Antigen (M - Final A/P Sepsis 2/2 to aspiration PNA Acute hypoxic respiratory distress 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 Chronic constipation GERD Transaminitis Functional Quadriplegia --Continue with Zosyn (day 6) --Change to PO Augmentin per ID recs --Aspiration precautions to be maintained --Continue tube feeds --Continue Chest PT --Continue Tenisha hugger PRN for hypothermia --Titrate Oxygen as tolerated --Suspect seizure likely 2/2 to lowered threshold in acute sepsis setting --Anti-epileptics to continue: --Lamictal 200mg GT BID --Phenobarbital 45mg BID GT --Onfi 5mg AM and 10mg HS GT --rectal Diazepam PRN; d/c Ativan dose when diazepam there --Seizure precautions --Continue Acyclovir 400mg BID GT --Continue Klonopin 1.5mg TID GT FEN: Fluids: Tube feeds Electrolyte abnormalities: Nutrition: Promote 20cc/hr increase 10cc q4h until goal of 45cc/hr with 30cc FW flushes PPX: DVT - Lovenox SQ GI - Ranitidine Dispo: D/C anticipated Case discussed with Dr. Michelle Williamson, DO - IM PGY-3
[2019-02-11] MEDS: LACTOBACILLUS ACIDOPHILUS 1 TABLET GT SCH (21:04)
[2019-02-12] MEDS ORDERED: PIPERACILLIN/TAZOBACTAM 3.375 GM VIAL IVPB ONE ×2 (00:08→10:08)
[2019-02-12] MEDS ORDERED: DEXTROSE 5%-WATER - 50 ML IVPB ONE ×2 (00:08→10:08)
[2019-02-12] MEDS: PIPERACILLIN/TAZOB 3.375 GM 3.375 GM in DEXTROSE 5%-WATER - 50 ML IVPB SCH ×2 (01:26→10:14)
[2019-02-12] MEDS: clonazePAM 0.5 MG TABLET GT SCH ×3 (06:01→21:10)
[2019-02-12] MEDS: FLUTICASONE PROP 0.05% 16 GM NASAL SPRAY NS SCH (06:03)
[2019-02-12] MEDS: ALBUTEROL SO4 2.5/IPRATROPIUM 0.5 INH SOL 3 ML VIAL.NEB. NEB SCH ×4 (07:30→20:36)
[2019-02-12] MEDS: BUDESONIDE 0.25 MG/2ML INH SUSP VIAL NEB SCH ×2 (07:30→20:36)
[2019-02-12 08:32] LABS: HEMATOCRIT 35.2 % (35.4-49); HEMOGLOBIN 12.3 GM/dL (11.7-16.9); MEAN CELL VOLUME 99.8 fl (80-96); MEAN PLT VOLUME 9.1 fl (7.5-11.1); PLATELET COUNT 215 K/MM3 (134-434); RBC 3.53 M/mm3 (4.00-5.60); RDW 15.6 % (11.9-15.9); WHITE BLOOD COUNT 5.4 K/mm3 (4.0-10.0)
[2019-02-12 08:37] LABS: BLOOD UREA NITROGEN 11.4 mg/dL (7-18); CREATININE 0.6 mg/dL (0.55-1.3); POTASSIUM 3.7 mmol/L (3.5-5.1)
--- NOTE | 2019-02-12 08:59 | PN ---
Physical Exam: SUBJECTIVE: Patient seen and examined. He appears comfortable. OBJECTIVE: Vital Signs Period Temp Pulse Resp BP Sys/Linares Pulse Ox Last 24 Hr 96.5 F-98.1 F 67-72 18-20 100-114/52-60 97-100 GENERAL: The patient is awake, alert, and in no acute distress. LUNGS: Few rhonchi, poor effort. HEART: Regular rate and rhythm, S1, S2 without murmur, rub or gallop. ABDOMEN: Soft, nondistended, normoactive bowel sounds, no guarding, no hepatosplenomegaly, no masses. G-tube site clean. EXTREMITIES: Contracted, 2+ pulses, warm, well-perfused, no edema. Laboratory Results - last 24 hr 02/07/19 02/12/19 02/12/19 12:11 06:50 06:50 WBC 5.4 RBC 3.53 L Hgb 12.3 Hct 35.2 L MCV 99.8 H MCH 35.0 H MCHC 35.0 RDW 15.6 Plt Count 215 MPV 9.1 Sodium 139 Potassium 3.7 Chloride 102 Carbon Dioxide 32 Anion Gap 6 L BUN 11.4 Creatinine 0.6 Est GFR (CKD-EPI)AfAm 165.41 Est GFR (CKD-EPI)NonAf 142.72 Random Glucose 115 H Calcium 9.0 Adenovirus (PCR) Negative Human Metapneumovir PCR Negative Influenza A (H1) PCR Negative Influenza B (RT-PCR) Negative Parainfluenza 1 (PCR) Negative Parainfluenza 2 (PCR) Negative Parainfluenza 3 (PCR) Negative RSV Type A (PCR) Negative RSV Type B (PCR) Negative Rhinovirus (PCR) Negative Active Medications Generic Name Dose Route Start Last Admin Trade Name Freq PRN Reason Stop Dose Admin Acyclovir 400 mg 02/06/19 10:00 02/11/19 21:05 Zovirax Oral Suspension - GT 400 mg BID JORGE Administration Albuterol/Ipratropium 1 amp 02/06/19 08:00 02/12/19 07:30 Duoneb - NEB 1 amp RQID JORGE Administration Baclofen 10 mg 02/06/19 10:00 02/11/19 21:05 Lioresal - GT 10 mg BID JORGE Administration Budesonide 1 amp 02/06/19 08:00 02/12/19 07:30 Pulmicort 0.25 Mg Nebulizer - NEB 1 amp RBID JORGE Administration Clobazam 10 mg 02/06/19 22:00 02/11/19 21:05 Onfi - GT 10 mg HS JORGE Administration Clobazam 5 mg 02/06/19 10:00 02/11/19 09:44 Onfi - GT 5 mg DAILY [facility]OR[facility] Administration Clonazepam 1.5 mg 02/06/19 09:01 02/12/19 06:01 Klonopin - GT 1.5 mg TID JORGE Administration Diazepam 7.5 mg 02/05/19 23:48 Diastat Rectal Gel - RC PRN PRN <Seizures> Enoxaparin Sodium 30 mg 02/06/19 10:00 02/11/19 09:46 Lovenox - SQ 30 mg DAILY [facility] Administration Fluticasone Propionate 2 spray 02/06/19 07:00 02/12/19 06:03 Flonase - NS 2 sprays AM [facility] Administration Piperacillin Sod/Tazobactam 50 mls @ 100 mls/hr 02/06/19 18:00 02/12/19 01:26 Sod 3.375 gm/ Dextrose IVPB 100 mls/hr Q8H-IV JORGE Administration Protocol Lactobacillus Acidophilus 1 tab 02/06/19 22:00 02/11/19 21:04 Bacid - GT 1 tab HS JORGE Administration Lamotrigine 200 mg 02/06/19 10:00 02/11/19 21:05 Lamictal - GT 200 mg BID JORGE Administration Magnesium Hydroxide 20 ml 02/06/19 10:00 02/11/19 21:04 Milk Of Magnesia - GT 20 ml BID JORGE Administration Multivitamins/Minerals 15 ml 02/06/19 10:00 02/11/19 09:50 Certavite-Antioxidant Liquid GT 15 ml DAILY [facility] Administration Phenobarbital 60 mg 02/09/19 22:00 02/11/19 21:05 Phenobarbital Liquid - GT 60 mg BID JORGE Administration Ranitidine HCl 75 mg 02/06/19 10:00 02/11/19 21:04 Zantac Oral Solution - GT 75 mg BID JORGE Administration ASSESSMENT/PLAN: This is a 23 year old man with a history of profound mental retardation, cerebral palsy, epilepsy, asthma, chronic hypoxic respiratory failure, hypothermia, Herpes encephalitis, left hip hemarthrosis, dysphagia, PEG, chronic constipation, GERD who presented to the ED from [facility] with hypoxia after a seizure. 1. Sepsis secondary to aspiration pneumonia - Change Zosyn to Augmentin x 7 days 2. Acute on chronic hypoxic respiratory failure - Continue oxygen to maintain saturation >90% 3. Epilepsy with breakthrough seizure - Continue Lamictal, Phenobarbital, Klonopin, Onfi 4. Asthma - Continue Pulmicort, DuoNeb 5. Cerebral palsy 6. Profound mental retardation 7. History of Herpes meningoencephalitis - Continue acyclovir 8. Chronic constipation - Continue Milk of Magnesia 9. GERD - Continue Zantac 10. Dysphagia - Has G-tube 11. Hepatic transaminitis - Stable 12. Functional quadriplegia 13. Nutrition - Continue Promote via G-tube 14. DVT prophylaxis - On Lovenox Visit type - Emergency Visit Emergency Visit: Yes ED Registration Date: 02/05/19 Care time: The patient presented to the Emergency Department on the above date and was hospitalized for further evaluation of their emergent condition. - New Patient This patient is new to me today: No - Critical Care Critical Care patient: No - Discharge Referral Referred to [facility] Med [facility].C[facility] No
[2019-02-12] MEDS ORDERED: PT OWN MED DRAWER 7, Y5N ONE ×3 (10:07→21:02)
[2019-02-12] MEDS: ACYCLOVIR 200 MG/5 ML LIQUID GT SCH ×2 (10:11→21:07)
[2019-02-12] MEDS: MULTIVIT-MINERALS ORAL LIQUID GT SCH (10:12)
[2019-02-12] MEDS: lamoTRIgine 100 MG TABLET (FP) GT SCH ×2 (10:12→21:10)
[2019-02-12] MEDS: MAGNESIUM HYDROX 2400MG/30ML ORAL SUSPENSION 30 ML CUP GT SCH ×2 (10:13→21:08)
[2019-02-12] MEDS: RANITIDINE HCL 150 MG/10 ML UNIT-DOSE GT SCH ×2 (10:13→21:10)
[2019-02-12] MEDS: cloBAZam 10 MG TABLET GT SCH ×2 (10:14→21:10)
[2019-02-12] MEDS: BACLOFEN 10 MG TABLET (FP) GT SCH ×2 (10:14→21:11)
[2019-02-12] MEDS: ENOXAPARIN NA (PORCINE) 30 MG/0.3 ML DISP.SYRIN SQ SCH (10:15)
[2019-02-12] MEDS: PHENobarbital 20 MG/5 ML UNIT-DOSE CUP GT SCH ×2 (10:15→21:08)
--- NOTE | 2019-02-12 12:39 | PN ---
Progress Note (short form) - Note Progress Note: PULMONARY WELL KNOWN BY OUR SERVICE Constitutional: Yes: No Distress, Thin Eyes: Yes: Conjunctiva Clear, EOM Intact HENT: Yes: Atraumatic, Normocephalic Neck: Yes: Supple, Trachea Midline Cardiovascular: Yes: Tachycardia Respiratory: Yes: Cough, Diminished, On Nasal O2, Rhonchi, Tachypnea. No: Accessory Muscle Use, Rales, SOB, SOB on Exertion, Stridor, Wheezes ...Inspection: Yes: Kyphosis, Scoliosis. No: Use of Accessory Muscles Gastrointestinal: Yes: Normal Bowel Sounds, Soft, Other (GT ) Musculoskeletal: Yes: Joint Stiffness Extremities: Yes: Deformity, Shortened Edema: No Peripheral Pulses WNL: Yes Integumentary: Yes: WNL Neurological: Yes: Pre-Existing Deficit Labs: NOTED Imaging - Results Chest X-ray: Report Reviewed, Image Reviewed Problem List - Problems (1) Aspiration pneumonia Code(s): J69.0 - PNEUMONITIS DUE TO INHALATION OF FOOD AND VOMIT Qualifiers: Aspiration pneumonia type: unspecified Laterality: right Lung location: lower lobe of lung Qualified Code(s): J69.0 - Pneumonitis due to inhalation of food and vomit (2) Shortness of breath Code(s): R06.02 - SHORTNESS OF BREATH (3) Acute hypoxemic respiratory failure Code(s): J96.01 - ACUTE RESPIRATORY FAILURE WITH HYPOXIA (4) Profound mental retardation Code(s): F73 - PROFOUND INTELLECTUAL DISABILITIES (5) Seizure Code(s): R56.9 - UNSPECIFIED CONVULSIONS (6) PNA (pneumonia) Code(s): J18.9 - PNEUMONIA, UNSPECIFIED ORGANISM (7) Asthma Code(s): J45.909 - UNSPECIFIED ASTHMA, UNCOMPLICATED (8) Epilepsy Code(s): G40.909 - EPILEPSY, UNSP, NOT INTRACTABLE, WITHOUT STATUS EPILEPTICUS (9) PEG (percutaneous endoscopic gastrostomy) status Code(s): Z93.1 - GASTROSTOMY STATUS (10) Aspiration pneumonia Code(s): J69.0 - PNEUMONITIS DUE TO INHALATION OF FOOD AND VOMIT (11) Hypothermia Code(s): T68.XXXA - HYPOTHERMIA, INITIAL ENCOUNTER Assessment/Plan Antibiotics as per ID Supplemental O2 as needed Aspiration precautions VTE prophylaxis AEDs as ordered BD TX Will follow Kwame IBARRA MD
[2019-02-12] MEDS: AMOX TR/POTASSIUM CLAVULANATE 600 MG/5 ML GT SCH (16:51)
[2019-02-12] MEDS: LACTOBACILLUS ACIDOPHILUS 1 TABLET GT SCH (21:07)
[2019-02-13] MEDS: FLUTICASONE PROP 0.05% 16 GM NASAL SPRAY NS SCH (06:14)
[2019-02-13] MEDS: clonazePAM 0.5 MG TABLET GT SCH ×3 (06:14→21:24)
[2019-02-13] MEDS: BUDESONIDE 0.25 MG/2ML INH SUSP VIAL NEB SCH ×2 (07:40→19:38)
[2019-02-13] MEDS: ALBUTEROL SO4 2.5/IPRATROPIUM 0.5 INH SOL 3 ML VIAL.NEB. NEB SCH ×4 (07:40→19:38)
[2019-02-13] MEDS ORDERED: PT OWN MED DRAWER 7, Y5N ONE ×3 (08:27→21:08)
--- NOTE | 2019-02-13 08:56 | PN ---
Physical Exam: SUBJECTIVE: Patient seen and examined. He appears comfortable. OBJECTIVE: Vital Signs Period Temp Pulse Resp BP Sys/Linares Pulse Ox Last 24 Hr 96.1 F-98.4 F 55-68 20-20 86-101/44-61 97-99 GENERAL: The patient is awake, alert, and in no acute distress. LUNGS: Few rhonchi, poor effort. HEART: Regular rate and rhythm, S1, S2 without murmur, rub or gallop. ABDOMEN: Soft, nondistended, normoactive bowel sounds, no guarding, no hepatosplenomegaly, no masses. G-tube site clean. EXTREMITIES: Contracted, 2+ pulses, warm, well-perfused, no edema. SKIN: Warm, dry, normal turgor, no rashes or lesions noted Active Medications Generic Name Dose Route Start Last Admin Trade Name Freq PRN Reason Stop Dose Admin Acyclovir 400 mg 02/06/19 10:00 02/12/19 21:07 Zovirax Oral Suspension - GT 400 mg BID JORGE Administration Albuterol/Ipratropium 1 amp 02/06/19 08:00 02/13/19 07:40 Duoneb - NEB 1 amp RQID JORGE Administration Amoxicillin/Clavulanate Potassium 600 mg 02/12/19 17:30 02/12/19 16:51 Augmentin 600 Mg/5 Ml Oral Suspension - GT 600 mg BID@0800,1730 JORGE Administration Baclofen 10 mg 02/06/19 10:00 02/12/19 21:11 Lioresal - GT 10 mg BID JORGE Administration Budesonide 1 amp 02/06/19 08:00 02/13/19 07:40 Pulmicort 0.25 Mg Nebulizer - NEB 1 amp RBID JORGE Administration Clobazam 10 mg 02/06/19 22:00 02/12/19 21:10 Onfi - GT 10 mg HS JORGE Administration Clobazam 5 mg 02/06/19 10:00 02/12/19 10:14 Onfi - GT 5 mg DAILY JORGE Administration Clonazepam 1.5 mg 02/06/19 09:01 02/13/19 06:14 Klonopin - GT 1.5 mg TID JORGE Administration Diazepam 7.5 mg 02/05/19 23:48 Diastat Rectal Gel - RC PRN PRN <Seizures> Enoxaparin Sodium 30 mg 02/06/19 10:00 02/12/19 10:15 Lovenox - SQ 30 mg DAILY JORGE Administration Fluticasone Propionate 2 spray 02/06/19 07:00 02/13/19 06:14 Flonase - NS 2 sprays AM J[facility]GE Administration Lactobacillus Acidophilus 1 tab 02/06/19 22:00 02/12/19 21:07 Bacid - GT 1 tab HS JORGE Administration Lamotrigine 200 mg 02/06/19 10:00 02/12/19 21:10 Lamictal - GT 200 mg BID JORGE Administration Magnesium Hydroxide 20 ml 02/06/19 10:00 02/12/19 21:08 Milk Of Magnesia - GT 20 ml BID JORGE Administration Multivitamins/Minerals 15 ml 02/06/19 10:00 02/12/19 10:12 Certavite-Antioxidant Liquid GT 15 ml DAILY JORGE Administration Phenobarbital 60 mg 02/09/19 22:00 02/12/19 21:08 Phenobarbital Liquid - GT 60 mg BID JORGE Administration Ranitidine HCl 75 mg 02/06/19 10:00 02/12/19 21:10 Zantac Oral Solution - GT 75 mg BID JORGE Administration ASSESSMENT/PLAN: This is a 23 year old man with a history of profound mental retardation, cerebral palsy, epilepsy, asthma, chronic hypoxic respiratory failure, hypothermia, Herpes encephalitis, left hip hemarthrosis, dysphagia, PEG, chronic constipation, GERD who presented to the ED from [facility] with hypoxia after a seizure. 1. Sepsis secondary to aspiration pneumonia - Treated with Zosyn, now on Augmentin for 7 days 2. Acute on chronic hypoxic respiratory failure - Continue oxygen to maintain saturation >90% 3. Epilepsy with breakthrough seizure - Continue Lamictal, Phenobarbital, Klonopin, Onfi 4. Asthma - Continue Pulmicort, DuoNeb 5. Cerebral palsy 6. Profound mental retardation 7. History of Herpes meningoencephalitis - Continue acyclovir 8. Chronic constipation - Continue Milk of Magnesia 9. GERD - Continue Zantac 10. Dysphagia - Has G-tube 11. Hepatic transaminitis - Stable 12. Functional quadriplegia 13. Nutrition - Continue Promote via G-tube 14. DVT prophylaxis - On Lovenox 15. Disposition - Expect discharge to [place] tomorrow Visit type - Emergency Visit Emergency Visit: Yes ED Registration Date: 02/05/19 Care time: The patient presented to the Emergency Department on the above date and was hospitalized for further evaluation of their emergent condition. - New Patient This patient is new to me today: No - Critical Care Critical Care patient: No - Discharge Referral Referred to [facility] Med [facility].C[facility] No
[2019-02-13] MEDS: AMOX TR/POTASSIUM CLAVULANATE 600 MG/5 ML GT SCH ×2 (08:58→17:40)
[2019-02-13] MEDS: MULTIVIT-MINERALS ORAL LIQUID GT SCH (10:13)
[2019-02-13] MEDS: lamoTRIgine 100 MG TABLET (FP) GT SCH ×2 (10:13→21:24)
[2019-02-13] MEDS: BACLOFEN 10 MG TABLET (FP) GT SCH ×2 (10:14→21:24)
[2019-02-13] MEDS: MAGNESIUM HYDROX 2400MG/30ML ORAL SUSPENSION 30 ML CUP GT SCH ×2 (10:14→21:23)
[2019-02-13] MEDS: cloBAZam 10 MG TABLET GT SCH ×2 (10:15→21:24)
[2019-02-13] MEDS: RANITIDINE HCL 150 MG/10 ML UNIT-DOSE GT SCH ×2 (10:17→21:24)
[2019-02-13] MEDS: PHENobarbital 20 MG/5 ML UNIT-DOSE CUP GT SCH ×2 (10:17→21:24)
[2019-02-13] MEDS: ACYCLOVIR 200 MG/5 ML LIQUID GT SCH ×2 (10:19→21:23)
[2019-02-13] MEDS: ENOXAPARIN NA (PORCINE) 30 MG/0.3 ML DISP.SYRIN SQ SCH (10:20)
[2019-02-13] MEDS: SODIUM CHLORIDE NASAL SPRAY 44 ML BOTTLE NS SCH ×2 (13:59→21:25)
[2019-02-13] MEDS: LACTOBACILLUS ACIDOPHILUS 1 TABLET GT SCH (21:24)
[2019-02-14] MEDS: clonazePAM 0.5 MG TABLET GT SCH ×3 (06:00→21:08)
[2019-02-14] MEDS: SODIUM CHLORIDE NASAL SPRAY 44 ML BOTTLE NS SCH ×3 (06:01→21:09)
[2019-02-14] MEDS: FLUTICASONE PROP 0.05% 16 GM NASAL SPRAY NS SCH (06:01)
[2019-02-14 07:38] LABS: HEMATOCRIT 38.5 % (35.4-49); HEMOGLOBIN 13.2 GM/dL (11.7-16.9); MCH 34.5 pg (25.7-33.7); MCHC 34.3 g/dl (32.0-35.9); MEAN CELL VOLUME 100.7 fl (80-96); MEAN PLT VOLUME 9.3 fl (7.5-11.1); PLATELET COUNT 318 K/MM3 (134-434); RBC 3.82 M/mm3 (4.00-5.60); RDW 15.8 % (11.9-15.9); WHITE BLOOD COUNT 6.2 K/mm3 (4.0-10.0)
[2019-02-14] MEDS: ALBUTEROL SO4 2.5/IPRATROPIUM 0.5 INH SOL 3 ML VIAL.NEB. NEB SCH ×4 (07:40→20:15)
[2019-02-14] MEDS: BUDESONIDE 0.25 MG/2ML INH SUSP VIAL NEB SCH ×2 (07:40→20:20)
[2019-02-14 08:00] LABS: ALBUMIN 3.4 g/dl (3.4-5.0); BLOOD UREA NITROGEN 16.8 mg/dL (7-18); CREATININE 0.7 mg/dL (0.55-1.3); POTASSIUM 4.2 mmol/L (3.5-5.1); TOT PROT 8.7 g/dl (6.4-8.2)
[2019-02-14 08:01] LABS: BILIRUBIN,DIRECT 0.1 mg/dL (0.0-0.2); BILIRUBIN,TOTAL 0.2 mg/dL (0.2-1)
[2019-02-14] MEDS ORDERED: PT OWN MED DRAWER 7, Y5N ONE ×2 (10:11→20:19)
[2019-02-14] MEDS: RANITIDINE HCL 150 MG/10 ML UNIT-DOSE GT SCH ×2 (10:13→21:06)
[2019-02-14] MEDS: ENOXAPARIN NA (PORCINE) 30 MG/0.3 ML DISP.SYRIN SQ SCH (10:13)
[2019-02-14] MEDS: MAGNESIUM HYDROX 2400MG/30ML ORAL SUSPENSION 30 ML CUP GT SCH ×2 (10:14→21:07)
[2019-02-14] MEDS: PHENobarbital 20 MG/5 ML UNIT-DOSE CUP GT SCH ×2 (10:14→21:10)
[2019-02-14] MEDS: BACLOFEN 10 MG TABLET (FP) GT SCH ×2 (10:15→21:08)
[2019-02-14] MEDS: cloBAZam 10 MG TABLET GT SCH ×2 (10:15→21:08)
[2019-02-14] MEDS: lamoTRIgine 100 MG TABLET (FP) GT SCH ×2 (10:15→21:08)
[2019-02-14] MEDS: ACYCLOVIR 200 MG/5 ML LIQUID GT SCH ×2 (10:15→21:07)
[2019-02-14] MEDS: MULTIVIT-MINERALS ORAL LIQUID GT SCH (10:16)
[2019-02-14] MEDS: AMOX TR/POTASSIUM CLAVULANATE 600 MG/5 ML GT SCH ×2 (10:36→17:25)
--- NOTE | 2019-02-14 11:16 | PN ---
Progress Note (short form) - Note Progress Note: PULMONARY Pt nonverbal. No fevers recorded. Vital Signs Period Temp Pulse Resp BP Sys/Linares Pulse Ox Last 24 Hr 96.9 F-98.9 F 56-102 20-20 87-94/40-58 97-98 Gen: NAD at rest Heart: RRR Lung: decreased breath sounds at the bases Abd: soft, nontender Ext: no edema, contracted CBC, BMP 02/14/19 06:30 02/14/19 06:30 Active Medications Acyclovir (Zovirax Oral Suspension -) 400 mg GT BID [facility] Last Admin: 02/14/19 10:15 Dose: 400 mg Albuterol/Ipratropium (Duoneb -) 1 amp NEB RQID [facility] Last Admin: 02/14/19 07:40 Dose: 1 amp Amoxicillin/Clavulanate Potassium (Augmentin 600 Mg/5 Ml Oral Suspension -) 600 mg GT BID@0800,1730 [facility] Last Admin: 02/14/19 10:36 Dose: 600 mg Baclofen (Lioresal -) 10 mg GT BID [facility] Last Admin: 02/14/19 10:15 Dose: 10 mg Budesonide (Pulmicort 0.25 Mg Nebulizer -) 1 amp NEB RBID [facility] Last Admin: 02/14/19 07:40 Dose: 1 amp Clobazam (Onfi -) 10 mg GT HS [facility] Last Admin: 02/13/19 21:24 Dose: 10 mg Clobazam (Onfi -) 5 mg GT DAILY [facility] Last Admin: 02/14/19 10:15 Dose: 5 mg Clonazepam (Klonopin -) 1.5 mg GT TID [facility] Last Admin: 02/14/19 06:00 Dose: 1.5 mg Diazepam (Diastat Rectal Gel -) 7.5 mg RC PRN PRN PRN Reason: <Seizures> Enoxaparin Sodium (Lovenox -) 30 mg SQ DAILY [facility] Last Admin: 02/14/19 10:13 Dose: 30 mg Fluticasone Propionate (Flonase -) 2 spray NS AM [facility] Last Admin: 02/14/19 06:01 Dose: 2 sprays Lactobacillus Acidophilus (Bacid -) 1 tab GT HS [facility] Last Admin: 02/13/19 21:24 Dose: 1 tab Lamotrigine (Lamictal -) 200 mg GT BID [facility] Last Admin: 02/14/19 10:15 Dose: 200 mg Magnesium Hydroxide (Milk Of Magnesia -) 20 ml GT BID [facility] Last Admin: 02/14/19 10:14 Dose: 20 ml Multivitamins/Minerals (Certavite-Antioxidant Liquid) 15 ml GT DAILY [facility] Last Admin: 02/14/19 10:16 Dose: 15 ml Phenobarbital (Phenobarbital Liquid -) 60 mg GT BID [facility] Last Admin: 02/14/19 10:14 Dose: 60 mg Ranitidine HCl (Zantac Oral Solution -) 75 mg GT BID [facility] Last Admin: 02/14/19 10:13 Dose: 75 mg Sodium Chloride ([place] Nasal [place] -) 2 spray NS TID [facility] Last Admin: 02/14/19 06:01 Dose: 2 spray A/P Acute Hypoxic Respiratory Failure improving Pneumonia likely Aspiration Sepsis Breakthrough Seizure Seizure Disorder Cerebral Palsy Mental Retardation GERD Functional Quadriplegia - complete antibiotics - aspiration precautions - O2 if Spo2 <90% - antiepileptics - DVT prophylaxis
--- NOTE | 2019-02-14 12:55 | PN ---
Teaching Attending Note Name of Resident: Clifford Williamson ATTENDING PHYSICIAN STATEMENT I saw and evaluated the patient. I reviewed the resident's note and discussed the case with the resident. I agree with the resident's findings and plan as documented. SUBJECTIVE: Patient appears comfortable. OBJECTIVE: Vital Signs Period Temp Pulse Resp BP Sys/Linares Pulse Ox Last 24 Hr 96.9 F-98.9 F 56-102 20-20 87-98/40-58 94-98 GENERAL: The patient is awake, alert, and in no acute distress. LUNGS: Scattered rhonchi, poor inspiratory effort. HEART: Regular rate and rhythm, S1, S2 without murmur, rub or gallop. ABDOMEN: Soft, nondistended, normoactive bowel sounds, no guarding, no hepatosplenomegaly, no masses. G-tube site clean. EXTREMITIES: Contracted, 2+ pulses, warm, well-perfused, no edema. SKIN: Warm, dry, normal turgor, no rashes or lesions noted Laboratory Results - last 24 hr 02/14/19 02/14/19 06:30 06:30 WBC 6.2 RBC 3.82 L Hgb 13.2 Hct 38.5 MCV 100.7 H MCH 34.5 H MCHC 34.3 RDW 15.8 Plt Count 318 D MPV 9.3 Sodium 137 Potassium 4.2 Chloride 98 Carbon Dioxide 31 Anion Gap 7 L BUN 16.8 Creatinine 0.7 Est GFR (CKD-EPI)AfAm 155.25 Est GFR (CKD-EPI)NonAf 133.96 Random Glucose 93 Calcium 9.0 Total Bilirubin 0.2 Direct Bilirubin 0.1 AST 74 H ALT 87 H Alkaline Phosphatase 339 H Total Protein 8.7 H Albumin 3.4 Current Medications Generic Name Dose Route Start Last Admin Trade Name Freq PRN Reason Stop Dose Admin Acyclovir 400 mg 02/06/19 10:00 02/14/19 10:15 Zovirax Oral Suspension - GT 400 mg BID JORGE Administration Albuterol/Ipratropium 1 amp 02/06/19 08:00 02/14/19 11:35 Duoneb - NEB 1 amp RQID JORGE Administration Amoxicillin/Clavulanate Potassium 600 mg 02/12/19 17:30 02/14/19 10:36 Augmentin 600 Mg/5 Ml Oral Suspension - GT 600 mg BID@0800,1730 JORGE Administration Baclofen 10 mg 02/06/19 10:00 02/14/19 10:15 Lioresal - GT 10 mg BID JORGE Administration Budesonide 1 amp 02/06/19 08:00 02/14/19 07:40 Pulmicort 0.25 Mg Nebulizer - NEB 1 amp RBID JORGE Administration Clobazam 10 mg 02/06/19 22:00 02/13/19 21:24 Onfi - GT 10 mg HS JORGE Administration Clobazam 5 mg 02/06/19 10:00 02/14/19 10:15 Onfi - GT 5 mg DAILY JORGE Administration Clonazepam 1.5 mg 02/06/19 09:01 02/14/19 06:00 Klonopin - GT 1.5 mg TID JORGE Administration Diazepam 7.5 mg 02/05/19 23:48 Diastat Rectal Gel - RC PRN PRN <Seizures> Enoxaparin Sodium 30 mg 02/06/19 10:00 02/14/19 10:13 Lovenox - SQ 30 mg DAILY JORGE Administration Fluticasone Propionate 2 spray 02/06/19 07:00 02/14/19 06:01 Flonase - NS 2 sprays AM JORGE Administration Lactobacillus Acidophilus 1 tab 02/06/19 22:00 02/13/19 21:24 Bacid - GT 1 tab HS JORGE Administration Lamotrigine 200 mg 02/06/19 10:00 02/14/19 10:15 Lamictal - GT 200 mg BID JORGE Administration Magnesium Hydroxide 20 ml 02/06/19 10:00 02/14/19 10:14 Milk Of Magnesia - GT 20 ml BID JORGE Administration Multivitamins/Minerals 15 ml 02/06/19 10:00 02/14/19 10:16 Certavite-Antioxidant Liquid GT 15 ml DAILY JORGE Administration Phenobarbital 60 mg 02/09/19 22:00 02/14/19 10:14 Phenobarbital Liquid - GT 60 mg BID JORGE Administration Ranitidine HCl 75 mg 02/06/19 10:00 02/14/19 10:13 Zantac Oral Solution - GT 75 mg BID JORGE Administration Sodium Chloride 2 spray 02/13/19 14:00 02/14/19 06:01 [place] Nasal [place] - NS 2 spray TID JORGE Administration ASSESSMENT AND PLAN: This is a 23 year old man with a history of profound mental retardation, cerebral palsy, epilepsy, asthma, chronic hypoxic respiratory failure, hypothermia, Herpes encephalitis, left hip hemarthrosis, dysphagia, PEG, chronic constipation, GERD who presented to the ED from [facility] with hypoxia after a seizure. 1. Sepsis secondary to aspiration pneumonia - Treated with Zosyn, now on Augmentin for 7 days 2. Acute on chronic hypoxic respiratory failure - Continue oxygen as needed to maintain saturation >90% 3. Epilepsy with breakthrough seizure - Continue Lamictal, Phenobarbital, Klonopin, Onfi 4. Asthma - Continue Pulmicort, DuoNeb 5. Cerebral palsy 6. Profound mental retardation 7. History of Herpes meningoencephalitis - Continue acyclovir 8. Chronic constipation - Continue Milk of Magnesia 9. GERD - Continue Zantac 10. Dysphagia - Has G-tube 11. Hepatic transaminitis - Stable 12. Functional quadriplegia 13. Nutrition - Continue Promote via G-tube 14. DVT prophylaxis - On Lovenox 15. Disposition - Ok for discharge to [place]
--- NOTE | 2019-02-14 18:45 | PN ---
Progress Note (short form) - Note Progress Note: HPI: HPI limited due to patient's clinical history. pt without distress and no acute events overnight. PE: Vital Signs Temperature 99.0 F 02/14/19 17:30 Pulse Rate 78 02/14/19 18:00 Respiratory Rate 20 02/14/19 17:30 Blood Pressure 98/58 L 02/14/19 17:30 O2 Sat by Pulse Oximetry (%) 95 02/14/19 18:00 GEN: NAD, awake/responds with voice, more active today, nonverbal Neck: No JVD Lungs: Improved breath sounds b/l, no accessory muscle use 2LNC CARD: RRR, no murmurs appreciated ABD: Soft, NT/ND, normoactive BS, PEG without any erythema or secretions around stoma EXT: Contracted, Warm, well-perfused, contracted Skin: No rashes or lesions appreciated Active Medications Acyclovir (Zovirax Oral Suspension -) 400 mg GT BID [facility] Last Admin: 02/14/19 10:15 Dose: 400 mg Albuterol/Ipratropium (Duoneb -) 1 amp NEB RQID [facility] Last Admin: 02/14/19 15:50 Dose: 1 amp Amoxicillin/Clavulanate Potassium (Augmentin 600 Mg/5 Ml Oral Suspension -) 600 mg GT BID@0800,1730 [facility] Last Admin: 02/14/19 17:25 Dose: 600 mg Baclofen (Lioresal -) 10 mg GT BID [facility] Last Admin: 02/14/19 10:15 Dose: 10 mg Budesonide (Pulmicort 0.25 Mg Nebulizer -) 1 amp NEB RBID [facility] Last Admin: 02/14/19 07:40 Dose: 1 amp Clobazam (Onfi -) 10 mg GT HS [facility] Last Admin: 02/13/19 21:24 Dose: 10 mg Clobazam (Onfi -) 5 mg GT DAILY [facility] Last Admin: 02/14/19 10:15 Dose: 5 mg Clonazepam (Klonopin -) 1.5 mg GT TID [facility] Last Admin: 02/14/19 15:00 Dose: 1.5 mg Diazepam (Diastat Rectal Gel -) 7.5 mg RC PRN PRN PRN Reason: <Seizures> Enoxaparin Sodium (Lovenox -) 30 mg SQ DAILY [facility] Last Admin: 02/14/19 10:13 Dose: 30 mg Fluticasone Propionate (Flonase -) 2 spray NS AM [facility] Last Admin: 02/14/19 06:01 Dose: 2 sprays Lactobacillus Acidophilus (Bacid -) 1 tab GT HS [facility] Last Admin: 02/13/19 21:24 Dose: 1 tab Lamotrigine (Lamictal -) 200 mg GT BID [facility] Last Admin: 02/14/19 10:15 Dose: 200 mg Magnesium Hydroxide (Milk Of Magnesia -) 20 ml GT BID [facility] Last Admin: 02/14/19 10:14 Dose: 20 ml Multivitamins/Minerals (Certavite-Antioxidant Liquid) 15 ml GT DAILY [facility] Last Admin: 02/14/19 10:16 Dose: 15 ml Phenobarbital (Phenobarbital Liquid -) 60 mg GT BID [facility] Last Admin: 02/14/19 10:14 Dose: 60 mg Ranitidine HCl (Zantac Oral Solution -) 75 mg GT BID [facility] Last Admin: 02/14/19 10:13 Dose: 75 mg Sodium Chloride ([place] Nasal [place] -) 2 spray NS TID [facility] Last Admin: 02/14/19 15:02 Dose: 2 spray Microbiology 02/05/19 19:45 Blood - Peripheral Venous Blood Culture - Final NO GROWTH AFTER 5 DAYS INCUBATION 02/05/19 19:15 Blood - Peripheral Venous Blood Culture - Final NO GROWTH AFTER 5 DAYS INCUBATION 02/06/19 12:52 Sputum - Oropharynx Suctioned Sputum Gram Stain - Final 02/06/19 12:52 Sputum - Oropharynx Suctioned Sputum Sputum Culture - Final Pseudomonas Aeruginosa Klebsiella Pneumoniae Beta Hem Streptococcus Group G 02/06/19 14:35 Urine For Antigen Detection Legionella Antigen - Final 02/06/19 14:35 Urine For Antigen Detection Streptococcus pneumoniae Antigen (M - Final A/P Sepsis 2/2 to aspiration PNA Acute hypoxic respiratory distress 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 Chronic constipation GERD Transaminitis Functional Quadriplegia --Augmentin to continue --Aspiration precautions to be maintained --Continue tube feeds --Continue Chest PT --Continue Tenisha hugger PRN for hypothermia --O2 normal on RA --Suspect seizure likely 2/2 to lowered threshold in acute sepsis setting --Anti-epileptics to continue: --Lamictal 200mg GT BID --Phenobarbital 45mg BID GT --Onfi 5mg AM and 10mg HS GT --rectal Diazepam PRN; d/c Ativan dose when diazepam there --Seizure precautions --Continue Acyclovir 400mg BID GT --Continue Klonopin 1.5mg TID GT FEN: Fluids: Tube feeds Electrolyte abnormalities: None Nutrition: Promote 20cc/hr increase 10cc q4h until goal of 45cc/hr with 30cc FW flushes PPX: DVT - Lovenox SQ GI - Ranitidine Dispo: D/C anticipated Case discussed with Dr. Kina Williamson, DO - IM PGY-3
[2019-02-14] MEDS: LACTOBACILLUS ACIDOPHILUS 1 TABLET GT SCH (21:08)
[2019-02-15] MEDS: clonazePAM 0.5 MG TABLET GT SCH (05:38)
[2019-02-15] MEDS: SODIUM CHLORIDE NASAL SPRAY 44 ML BOTTLE NS SCH (05:40)
[2019-02-15] MEDS: FLUTICASONE PROP 0.05% 16 GM NASAL SPRAY NS SCH (06:03)
[2019-02-15] MEDS: ENOXAPARIN NA (PORCINE) 30 MG/0.3 ML DISP.SYRIN SQ SCH (09:49)
[2019-02-15] MEDS: RANITIDINE HCL 150 MG/10 ML UNIT-DOSE GT SCH (09:49)
[2019-02-15] MEDS: BACLOFEN 10 MG TABLET (FP) GT SCH (09:49)
[2019-02-15] MEDS: PHENobarbital 20 MG/5 ML UNIT-DOSE CUP GT SCH (09:50)
[2019-02-15] MEDS: lamoTRIgine 100 MG TABLET (FP) GT SCH (09:50)
[2019-02-15] MEDS: MAGNESIUM HYDROX 2400MG/30ML ORAL SUSPENSION 30 ML CUP GT SCH (09:51)
[2019-02-15] MEDS: cloBAZam 10 MG TABLET GT SCH (09:52)
[2019-02-15] MEDS: ACYCLOVIR 200 MG/5 ML LIQUID GT SCH (10:04)
[2019-02-15] MEDS: MULTIVIT-MINERALS ORAL LIQUID GT SCH (10:04)
[2019-02-15] MEDS: AMOX TR/POTASSIUM CLAVULANATE 600 MG/5 ML GT SCH (10:04)
--- NOTE | 2019-02-15 10:44 | PN ---
Teaching Attending Note Name of Resident: Clifford Williamson ATTENDING PHYSICIAN STATEMENT I saw and evaluated the patient. I reviewed the resident's note and discussed the case with the resident. I agree with the resident's findings and plan as documented. SUBJECTIVE: Patient is comfortable. OBJECTIVE: Vital Signs Period Temp Pulse Resp BP Sys/Linares Pulse Ox Last 24 Hr 97.7 F-99.0 F 62-90 18-20 97-112/56-68 94-97 GENERAL: The patient is awake, alert, and in no acute distress. LUNGS: Clear, poor inspiratory effort. HEART: Regular rate and rhythm, S1, S2 without murmur, rub or gallop. ABDOMEN: Soft, nondistended, normoactive bowel sounds, no guarding, no hepatosplenomegaly, no masses. G-tube site clean. EXTREMITIES: Contracted, 2+ pulses, warm, well-perfused, no edema. SKIN: Warm, dry, normal turgor, no rashes or lesions noted Current Medications Generic Name Dose Route Start Last Admin Trade Name Freq PRN Reason Stop Dose Admin Acyclovir 400 mg 02/06/19 10:00 02/15/19 10:04 Zovirax Oral Suspension - GT 400 mg BID JORGE Administration Albuterol/Ipratropium 1 amp 02/06/19 08:00 02/14/19 20:15 Duoneb - NEB 1 amp RQID JORGE Administration Amoxicillin/Clavulanate Potassium 600 mg 02/12/19 17:30 02/15/19 10:04 Augmentin 600 Mg/5 Ml Oral Suspension - GT 600 mg BID@0800,1730 JORGE Administration Baclofen 10 mg 02/06/19 10:00 02/15/19 09:49 Lioresal - GT 10 mg BID JORGE Administration Budesonide 1 amp 02/06/19 08:00 02/14/19 20:20 Pulmicort 0.25 Mg Nebulizer - NEB 1 amp RBID [facility]ORGE Administration Clobazam 10 mg 02/06/19 22:00 02/14/19 21:08 Onfi - GT 10 mg HS JORGE Administration Clobazam 5 mg 02/06/19 10:00 02/15/19 09:52 Onfi - GT 5 mg DAILY [facility] Administration Clonazepam 1.5 mg 02/06/19 09:01 02/15/19 05:38 Klonopin - GT 1.5 mg TID JORGE Administration Diazepam 7.5 mg 02/05/19 23:48 Diastat Rectal Gel - RC PRN PRN <Seizures> Enoxaparin Sodium 30 mg 02/06/19 10:00 02/15/19 09:49 Lovenox - SQ 30 mg DAILY [facility] Administration Fluticasone Propionate 2 spray 02/06/19 07:00 02/15/19 06:03 Flonase - NS 2 sprays AM [facility] Administration Lactobacillus Acidophilus 1 tab 02/06/19 22:00 02/14/19 21:08 Bacid - GT 1 tab HS [facility]OR[facility] Administration Lamotrigine 200 mg 02/06/19 10:00 02/15/19 09:50 Lamictal - GT 200 mg BID [facility] Administration Magnesium Hydroxide 20 ml 02/06/19 10:00 02/15/19 09:51 Milk Of Magnesia - GT 20 ml BID [facility] Administration Multivitamins/Minerals 15 ml 02/06/19 10:00 02/15/19 10:04 Certavite-Antioxidant Liquid GT 15 ml DAILY [facility] Administration Phenobarbital 60 mg 02/09/19 22:00 02/15/19 09:50 Phenobarbital Liquid - GT 60 mg BID [facility]OR[facility] Administration Ranitidine HCl 75 mg 02/06/19 10:00 02/15/19 09:49 Zantac Oral Solution - GT 75 mg BID [facility]ORGE Administration Sodium Chloride 2 spray 02/13/19 14:00 02/15/19 05:40 [place] Nasal [place] - NS 2 spray TID [facility]ORGE Administration ASSESSMENT AND PLAN: This is a 23 year old man with a history of profound mental retardation, cerebral palsy, epilepsy, asthma, chronic hypoxic respiratory failure, hypothermia, Herpes encephalitis, left hip hemarthrosis, dysphagia, PEG, chronic constipation, GERD who presented to the ED from [facility] with hypoxia after a seizure. 1. Sepsis secondary to aspiration pneumonia - Treated with Zosyn, now on Augmentin for 7 days 2. Acute on chronic hypoxic respiratory failure - Continue oxygen as needed to maintain saturation >90% 3. Epilepsy with breakthrough seizure - Continue Lamictal, Phenobarbital, Klonopin, Onfi 4. Asthma - Continue Pulmicort, DuoNeb 5. Cerebral palsy 6. Profound mental retardation 7. History of Herpes meningoencephalitis - Continue acyclovir 8. Chronic constipation - Continue Milk of Magnesia 9. GERD - Continue Zantac 10. Dysphagia - Has G-tube 11. Hepatic transaminitis - Stable 12. Functional quadriplegia 13. Nutrition - Continue Promote via G-tube 14. DVT prophylaxis - On Lovenox 15. Disposition - Ok for discharge to [place]
--- NOTE | 2019-02-15 10:55 | PN ---
Progress Note (short form) - Note Progress Note: PULMONARY Pt nonverbal. No fevers recorded. Vital Signs Period Temp Pulse Resp BP Sys/Linares Pulse Ox Last 24 Hr 97.7 F-99.0 F 62-90 18-20 97-112/56-68 94-97 Gen: NAD at rest Heart: RRR Lung: decreased breath sounds at the bases Abd: soft, nontender Ext: no edema, contracted CBC, BMP 02/14/19 06:30 02/14/19 06:30 Active Medications Acyclovir (Zovirax Oral Suspension -) 400 mg GT BID [facility] Last Admin: 02/15/19 10:04 Dose: 400 mg Albuterol/Ipratropium (Duoneb -) 1 amp NEB RQID [facility] Last Admin: 02/14/19 20:15 Dose: 1 amp Amoxicillin/Clavulanate Potassium (Augmentin 600 Mg/5 Ml Oral Suspension -) 600 mg GT BID@0800,1730 [facility] Last Admin: 02/15/19 10:04 Dose: 600 mg Baclofen (Lioresal -) 10 mg GT BID [facility] Last Admin: 02/15/19 09:49 Dose: 10 mg Budesonide (Pulmicort 0.25 Mg Nebulizer -) 1 amp NEB RBID [facility] Last Admin: 02/14/19 20:20 Dose: 1 amp Clobazam (Onfi -) 10 mg GT HS [facility] Last Admin: 02/14/19 21:08 Dose: 10 mg Clobazam (Onfi -) 5 mg GT DAILY [facility] Last Admin: 02/15/19 09:52 Dose: 5 mg Clonazepam (Klonopin -) 1.5 mg GT TID [facility] Last Admin: 02/15/19 05:38 Dose: 1.5 mg Diazepam (Diastat Rectal Gel -) 7.5 mg RC PRN PRN PRN Reason: <Seizures> Enoxaparin Sodium (Lovenox -) 30 mg SQ DAILY [facility] Last Admin: 02/15/19 09:49 Dose: 30 mg Fluticasone Propionate (Flonase -) 2 spray NS AM [facility] Last Admin: 02/15/19 06:03 Dose: 2 sprays Lactobacillus Acidophilus (Bacid -) 1 tab GT HS [facility] Last Admin: 02/14/19 21:08 Dose: 1 tab Lamotrigine (Lamictal -) 200 mg GT BID [facility] Last Admin: 02/15/19 09:50 Dose: 200 mg Magnesium Hydroxide (Milk Of Magnesia -) 20 ml GT BID [facility] Last Admin: 02/15/19 09:51 Dose: 20 ml Multivitamins/Minerals (Certavite-Antioxidant Liquid) 15 ml GT DAILY [facility] Last Admin: 02/15/19 10:04 Dose: 15 ml Phenobarbital (Phenobarbital Liquid -) 60 mg GT BID [facility] Last Admin: 02/15/19 09:50 Dose: 60 mg Ranitidine HCl (Zantac Oral Solution -) 75 mg GT BID [facility] Last Admin: 02/15/19 09:49 Dose: 75 mg Sodium Chloride ([place] Nasal [place] -) 2 spray NS TID [facility] Last Admin: 02/15/19 05:40 Dose: 2 spray A/P Acute Hypoxic Respiratory Failure improving Pneumonia likely Aspiration Sepsis Breakthrough Seizure Seizure Disorder Cerebral Palsy Mental Retardation GERD Functional Quadriplegia - complete antibiotics - aspiration precautions - O2 if Spo2 <90% - antiepileptics - DVT prophylaxis - for discharge today
[2019-02-15 11:02] VITALS: BP 94/52; PULSE 62; TEMP 98.4
--- NOTE | 2019-02-15 21:45 | DS ---
Physical Exam: SUBJECTIVE: HPI limited. No events overnight. No changes compared to yesterday. OBJECTIVE: Vital Signs Period Temp Pulse Resp BP Sys/Linares Pulse Ox Last 24 Hr 97.7 F-98.9 F 62-90 18-20 94-112/52-68 94-97 PHYSICAL EXAM GEN: NAD, awake/responds with voice, more active today, nonverbal Neck: No JVD Lungs: Improved breath sounds b/l, no accessory muscle use 2LNC CARD: RRR, no murmurs appreciated ABD: Soft, NT/ND, normoactive BS, PEG without any erythema or secretions around stoma EXT: Contracted, Warm, well-perfused, contracted Skin: No rashes or lesions appreciated CBC, BMP 02/14/19 06:30 02/14/19 06:30 Microbiology 02/05/19 19:45 Blood - Peripheral Venous Blood Culture - Final NO GROWTH AFTER 5 DAYS INCUBATION 02/05/19 19:15 Blood - Peripheral Venous Blood Culture - Final NO GROWTH AFTER 5 DAYS INCUBATION 02/06/19 12:52 Sputum - Oropharynx Suctioned Sputum Gram Stain - Final 02/06/19 12:52 Sputum - Oropharynx Suctioned Sputum Sputum Culture - Final Pseudomonas Aeruginosa Klebsiella Pneumoniae Beta Hem Streptococcus Group G 02/06/19 14:35 Urine For Antigen Detection Legionella Antigen - Final 02/06/19 14:35 Urine For Antigen Detection Streptococcus pneumoniae Antigen (M - Final Imaging: CXR 02/05/19: Single view of the chest reveals persistent rotation to the left/scoliosis with convexity to the right, large heart, retrocardiac density and there is some new atelectasis or infiltrate at the right base since 12/27/2018 at 1707 hours. There is abdominal distention seen below both hemidiaphragms. Correlation recommended. Impression: New right base changes since prior study. CXR 02/10/2019: A single AP view of the chest reveals improvement in aeration since 01/28/2019. Again noted is a scoliosis with convexity to the right with prominent mediastinum with large heart and retrocardiac infiltrate/atelectasis. The right base changes have resolved. Correlation recommended. Impression: Improvement. Better aeration right base. ECG: NORMAL SINUS RHYTHM RIGHT BUNDLE BRANCH BLOCK INFERIOR INFARCT (CITED ON OR BEFORE 26-JUN-2016) ANTEROLATERAL INFARCT , AGE UNDETERMINED ABNORMAL ECG WHEN COMPARED WITH ECG OF 20-DEC-2018 13:10, NO SIGNIFICANT CHANGE WAS FOUND QTC 461ms HOSPITAL COURSE: Date of Admission:02/05/19 Date of Discharge: 02/15/19 Pt was admitted 02/05/19 due to breakthrough seizure and resultant hypoxia and admitted to the medical-surgical floor for sepsis 2/2 aspiration pneumonia with breakthrough seizures. Pt was assessed by neurology who suspected his breakthrough seizure was as a result of his acute infection. Pt was maintained on IV Zosyn throughout his stay and had supplemental oxygenation through [facility]%. In addition, his home medications were restarted as usual. As his hospital course progressed, pt's fever curve declined and his oxygen requirements diminished. He was progressed to Augmentin 875mg BID PO (stop day 02/18/19) and remained afebrile for multiple days. In addition, pt's oxygen saturation was assessed and he remained at 95% on RA. Pt had feeds reintroduced (Promote 20cc/ hr titrating +10cc/hr q4h until goal of 40cc/hr with 30cc free water flushes which he tolerated. Secretions minimized and he remained in his usual state of health. Pt is being discharged today in stable condition with no oxygen requirements and remaining afebrile. Pt did not require any additional seizure coverage throughout his stay and has not had any events. Minutes to complete discharge: 35 Discharge Summary Problems reviewed: Yes Reason For Visit: RESPIRATORY DISTRESS,ASPIRATION PNEUMONIA Condition: Improved - Instructions Diet, Activity, Other Instructions: Pt was hospitalized due to pneumonia suspected to be aspiration. Pt was treated with IV antibiotics and improved his oxygenation. He was tested for his oxygen needs and remains at 96% on RA and does not need oxygen. MEDICATIONS: Pt is to continue Augmentin 875mg TWICE daily until 02/18/19 (last dose of that AM) Pt is to continue the rest of his home medications as below: Onfi 5 AM and 10 HS Phenobarbital 48.6 BID Lamictal 1tab BID Klonopin 1.5mg TID Diazepam rectally PRN for seizures Flonase Baclofen 10mg BID Acyclovir 400mg BID Pt can have nebulized Duonebs NEEDED for wheezing every 4 hours Diet: Promote goal 40cc/hr with 30cc free water flushes for continuous feeds Follow-up: Follow with Dr. Valentino at [facility] Referrals: Tim Matute MD [Staff Physician] - Jose Luis Valentino Jr [Non Staff, Medical] - Disposition: LONG-TERM FACILITY - Home Medications Comprehensive Discharge Medication List: Ambulatory Orders Acyclovir 400 mg GT BID 04/25/17 Baclofen 10 mg GT BID 04/25/17 Clobazam [Onfi -] 10 mg GT HS 04/25/17 Clonazepam 1.5 mg GT TID 04/25/17 Lactobacillus Acidophilus [Acidophilus] 1 each GT HS 04/25/17 Lamotrigine 200 mg GT BID 04/25/17 Multivitamin [Poly-Vitamin] 1 each GT HS 04/25/17 Phenobarbital 48.6 mg GT BID 04/25/17 Ranitidine [Zantac -] 75 mg GT BID #0 tab 03/29/18 Diazepam Rectal Gel [Diastat Rectal Gel -] 7.5 mg ND PRN PRN 05/23/18 Fructooligosaccharides/Polydex [Fiber-Stat 15 gm/30 ml Liquid] 15 gm GT HS 05/23 Protein Supplement [Promod] 946 ml GT DAILY 05/23/18 Budesonide [Pulmicort 0.25 mg Nebulizer -] 1 neb IH BID 02/05/19 Clobazam [Sympazan] 5 mg GT DAILY 02/05/19 Fluticasone Prop 0.05% Nasal [Flonase -] 2 spray NS AM 02/05/19 Magnesium Hydrox 2400MG/30Ml [Milk of Magnesia -] 20 ml GT BID 02/05/19 Albuterol 2.5/Ipratropium 0.5 [Duoneb -] 1 neb IH QID PRN #30 neb 02/14/19 Clobazam [Onfi -] 5 mg GT DAILY #30 tablet MDD 5mg /24h 02/14/19 This patient is new to me today: No Emergency Visit: Yes ED Registration Date: 02/05/19 Care time: The patient presented to the Emergency Department on the above date and was hospitalized for further evaluation of their emergent condition. Critical Care patient: No - Discharge Referral Referred to [facility] No ATTENDING PHYSICIAN STATEMENT I saw and evaluated the patient. I reviewed the resident's note and discussed the case with the resident. I agree with the resident's findings and plan as documented. SUBJECTIVE: OBJECTIVE: ASSESSMENT AND PLAN:
== END 2019-02-15 11:16 | disposition home or self-care (01) | DRG 720 ==
LOC: JER 18:29 → JERBED 21:25 → J8W 23:47
PROVIDERS: ADMIT Internal Medicine; ATTEND Internal Medicine
PROC: 3E0G76Z Introduction of Nutritional Substance into Upper GI, Via Natural or Artificial Opening (ICD-10-PCS; principal; 2019-02-05)
DX: A41.9 Sepsis, unspecified organism (principal); J96.21 Acute and chronic respiratory failure with hypoxia; J69.0 Pneumonitis due to inhalation of food and vomit; Z93.1 Gastrostomy status; R53.2 Functional quadriplegia; F73 Profound intellectual disabilities; B00.4 Herpesviral encephalitis; R13.10 Dysphagia, unspecified; E87.0 Hyperosmolality and hypernatremia; M25.052 Hemarthrosis, left hip; G40.909 Epilepsy, unspecified, not intractable, without status epilepticus; K21.9 Gastro-esophageal reflux disease without esophagitis; J45.909 Unspecified asthma, uncomplicated; I45.10 Unspecified right bundle-branch block; G80.9 Cerebral palsy, unspecified; R74.0 Nonspecific elevation of levels of transaminase and lactic acid dehydrogenase [LDH]; F79 Unspecified intellectual disabilities; K59.09 Other constipation; R68.0 Hypothermia, not associated with low environmental temperature
CPT/HCPCS: 36415; 36600; 71045-TC-FY; 80048; 80053; 80076; 80175; 80184; 82248; 82550; 82803; 83605; 83735; 84100; 85025; 85027; 87040; 87070; 87186; 87205; 87633; 87804; 87899; 93005; 93010; 94640; 94761; 99283-25; G0008; J0475; J7030; Q2036

== ENCOUNTER 2019-06-01 18:53 | Inpatient (IN) | payer OTHER ==
[2019-06-01] MEDS ORDERED: ACETAMINOPHEN 1000 MG/100 ML VIAL (NON FORMULARY) IVPB ONE (19:25)
--- NOTE | 2019-06-01 19:30 | PDOC ---
Attending Attestation - Resident Resident Name: Dalton Beltrán - ED Attending Attestation I have performed the following: I have examined & evaluated the patient, The case was reviewed & discussed with the resident, I agree w/resident's findings & plan - HPI HPI: 06/01/19 22:44 see resident hpi - Physicial Exam PE: 06/01/19 22:44 agree with resident exam - Critical Care Time Total Critical Care Time: 45 Critical Care Statement: The care of this patient involved high complexity decision making to prevent further life threatening deterioration of the patient 's condition and/or to evaluate & treat vital organ system(s) failure or risk of failure. - Medical Decision Making 06/01/19 22:45 24-year-old male with history of cerebral palsy now with fever and respiratory distress Patient is influenza positive with left lower lobe read on chest x-ray Patient does meet sepsis criteria Zosyn and vancomycin given for broad coverage due to aspiration risk and patient residing in a facility with multiple chronically ill patients Admit to medical service
[2019-06-01] MEDS ORDERED: ACETAMINOPHEN INJECTION 100 ML IVPB ONE (19:44)
[2019-06-01] MEDS ORDERED: LACTATED RINGERS SOLUTION 1000 ML INFUS.BAG IV ONE ×2 (20:11→21:10)
--- NOTE | 2019-06-01 20:11 | PDOC ---
History of Present Illness - General Chief Complaint: SIRS, Suspected/Possible Stated Complaint: FEVER Time Seen by Provider: 06/01/19 19:20 History Source: Old Records, Other ([facility] Transfer Paperwork) Exam Limitations: Other - History of Present Illness Initial Comments: HPI: 24 y/o male presenting to [facility] ER from [facility].Transfer paperwork lists reasons for visit: temp 100.2, pulse 110, lungs w/ basal rales and hemoptysis. Pt is unable to contribute to HPI secondary to severe MR. Records indicate he received influenza vaccine on 02 Mar 2019. Also noted he was started prophylaxis Tamiflu 75mg daily x10 days on 29 May 2019. Medical Hx: - Cerebral palsy - Epilepsy, asthma - Herpes encephalitis - GERD Review of Systems: Unable to obtain secondary to baseline mental status Physical Examination: Vital signs and nursing notes reviewed. Constitutional- Nontoxic adult male in no acute distress or obvious discomfort. Found semi-fowlers on hospital bed. Head- Macrocephalic. No obvious external signs of trauma. Cardiovascular / Chest- Tachycardic rate with regular rhythm. No murmur, rubs, clicks, or gallops. Peripheral pulses- radial pulses full. Respiratory- Breathing occasionally sneezing versus coughing. Rhinorrhea present. Equal chest rise and fall. Clear to auscultation bilaterally. No stridor, no wheezing, no rhonchi. Gastrointestinal- abdomen is soft and nondistended. PEG tube in LUQ; site clean , dry, and intact. Neuro- Alert with eyes open spontaneously. Unable to assess orientation. MSK- Upper and lower extremities contracted. Skin- Warm and dry. MDM: 24 y/o male presenting with fever and tachycardia. Febrile at triage; given acetaminophen. Vitals remarkable for tachycardia without hypotension. Physical exam as described above. SPO2 noted to be 94% with NRB at 15LPM. ED Sepsis order set initiated. Ordered LR IVFB. Reviewed labs. Influenza A positive. Already receiving daily Tamiflu. Noted elevated H/H and elevated lactic acid. Suspect secondary to dehydration. Will trend. CXR report indicated concern for left lower lobe PNA. Ordered Vancomycin and Pip -Tazo for broad spectrum abx coverage. Will admit pt for further hemodynamic monitoring. 01 Jun 2019 22:29 PM Telephone discussion with resident Dr. Lance. Verbally appraised of the pts HPI, ED course, and current plan of management. Will admit pt to med/surg for attending Dr. Parmar. Repeat lactic acid pending at time of admission. Dalton Beltrán M.D., PGY2 Emergency Medicine Resident Past History - Past Medical History Allergies/Adverse Reactions: Allergies Allergy/AdvReac Type Severity Reaction Status Date / Time No Known Allergies Allergy Verified 06/01/19 19:09 Home Medications: Ambulatory Orders Acyclovir 400 mg GT BID 04/25/17 Baclofen 10 mg GT BID 04/25/17 Clobazam [Onfi -] 10 mg GT HS 04/25/17 Clonazepam 1.5 mg GT TID 04/25/17 Lactobacillus Acidophilus [Acidophilus] 1 each GT HS 04/25/17 Lamotrigine 200 mg GT BID 04/25/17 Multivitamin [Poly-Vitamin] 1 each GT HS 04/25/17 Phenobarbital 48.6 mg GT BID 04/25/17 Ranitidine [Zantac -] 75 mg GT BID #0 tab 03/29/18 Diazepam Rectal Gel [Diastat Rectal Gel -] 7.5 mg FL PRN PRN 05/23/18 Fructooligosaccharides/Polydex [Fiber-Stat 15 gm/30 ml Liquid] 15 gm GT HS 05/23 Protein Supplement [Promod] 946 ml GT DAILY 05/23/18 Budesonide [Pulmicort 0.25 mg Nebulizer -] 1 neb IH BID 02/05/19 Fluticasone Prop 0.05% Nasal [Flonase -] 2 spray NS AM 02/05/19 Magnesium Hydrox 2400MG/30Ml [Milk of Magnesia -] 20 ml GT BID 02/05/19 Albuterol 2.5/Ipratropium 0.5 [Duoneb -] 1 neb IH QID PRN #30 neb 02/14/19 Clobazam [Onfi -] 5 mg GT DAILY #30 tablet MDD 5mg /24h 02/14/19 Bacitracin - [Bacitracin Topical Ointment -] 1 applic TP BID 06/01/19 Sodium Chloride/Aloe Vera [[place] Saline Nasal Gel [place]] 22 ml NS BID 06/01/19 Anemia: No Asthma: Yes Cancer: No Cardiac Disorders: No CVA: No COPD: No CHF: No Dementia: No Diabetes: No GI Disorders: Yes (DYSPHAGIA. CONSTIPATION. GERD.) Disorders: No HTN: No Hypercholesterolemia: No Liver Disease: No Psychiatric Problems: Yes (MR) Seizures: Yes (EPILEPSY) Thyroid Disease: No - Surgical History Abdominal Surgery: Yes (GT PLACEMENT) Appendectomy: No Cardiac Surgery: No Cholecystectomy: No Lung Surgery: No Neurologic Surgery: No Orthopedic Surgery: Yes (l hip pinning, r hip osteotomy) - Psycho Social/Smoking Cessation Hx Smoking Status: No Smoking History: Never smoked Have you smoked in the past 12 months: No Number of Cigarettes Smoked Daily: 0 Hx Alcohol Use: No Drug/Substance Use Hx: No Substance Use Type: None Hx Substance Use Treatment: No *Physical Exam - Vital Signs Last Vital Signs Temp Pulse Resp BP Pulse Ox 101.6 F H 128 H 52 H 108/66 96 06/01/19 19:10 06/01/19 19:10 06/01/19 19:10 06/01/19 19:10 06/01/19 19:10 Procedures - Additional Procedures Progress: Ultrasound Guided Peripheral IV Placement PROCEDURE NOTE: IV Placement under Ultrasound Guidance PROCEDURE SURGICAL GARMENT ASSEMBLER: Dalton Beltrán M.D., PGY2 Indication: IV access required. Multiple attempts at peripheral IV placement were made by the nursing/house staff without success. Procedure: The area was prepped in the usual fashion. The R basilic vein was cannulated with a 20 gauge angiocath with use of dynamic ultrasound to identify the vein. The patient tolerated the procedure well. Complications: none ED Treatment Course - LABORATORY CBC & Chemistry Diagram: 06/01/19 19:30 06/01/19 19:30 - RADIOLOGY Radiology Studies Ordered: Category Date Time Status CHEST X-RAY PORTABLE* [RAD] Stat Radiology 06/01/19 19:24 Ordered - Medications Given in the ED: ED Medications Discontinued Medications Generic Name Dose Route Start Last Admin Trade Name Freq PRN Reason Stop Dose Admin Acetaminophen 1,000 mg 06/01/19 19:25 06/01/19 19:45 Ofirmev Injection - IVPB 06/01/19 19:26 1,000 mg ONCE ONE Administration Discharge - Discharge Information Problems reviewed: Yes Clinical Impression/Diagnosis: Influenza A, Dependence on continuous supplemental oxygen, Tachycardia, Dehydration fever Fever Qualifiers: Fever type: unspecified Qualified Code(s): R50.9 - Fever, unspecified Condition: Stable - Admission Yes - Follow up/Referral - Patient Discharge Instructions - Post Discharge Activity
[2019-06-01 20:23] LABS: BASO % 0.3 % (0-2.0); EOS % 0.1 % (0-4.5); HEMATOCRIT 51.1 % (35.4-49); HEMOGLOBIN 17.4 GM/dL (11.7-16.9); LYMPH % 6.3 % (8-40); MCH 34.2 pg (25.7-33.7); MEAN CELL VOLUME 100.6 fl (80-96); MEAN PLT VOLUME 10.4 fl (7.5-11.1); NEUT % 87.3 % (42.8-82.8); PLATELET COUNT 225 K/MM3 (134-434); RBC 5.08 M/mm3 (4.00-5.60); RDW 13.5 % (11.9-15.9); WHITE BLOOD COUNT 13.6 K/mm3 (4.0-10.0)
[2019-06-01 20:25] LABS: VENOUS PC02 55.3 mmHg (38-52); VENOUS PH 7.35 (7.31-7.41); VENOUS PO2 < 49 mmHg (28-48)
[2019-06-01 20:34] LABS: PH,URINE 7.5 (5.0-8.0); URINE APPEARANCE CLEAR; URINE BILIRUBIN NEGATIVE (NEGATIVE); URINE COLOR YELLOW; URINE GLUCOSE (UA) NEGATIVE (NEGATIVE); URINE KETONE NEGATIVE (NEGATIVE); URINE LEUK ESTERASE NEGATIVE (NEGATIVE); URINE NITRITE NEGATIVE (NEGATIVE); URINE PROTEIN TRACE (NEGATIVE); URINE UROBILINOGEN 0.2 mg/dL (0.2-1.0)
[2019-06-01 20:40] LABS: INR 1.17 (0.83-1.09); PROTHROMBIN TIME (PATIENT) 13.8 SEC (9.7-13.0)
[2019-06-01 20:43] LABS: ACTIVATED PTT 37.5 SECONDS (25.2-36.5)
[2019-06-01 20:51] LABS: ALBUMIN 4.6 g/dl (3.4-5.0); BILIRUBIN,TOTAL 0.3 mg/dL (0.2-1); BLOOD UREA NITROGEN 15.7 mg/dL (7-18); CALCIUM 9.4 mg/dL (8.5-10.1); CREATININE 0.9 mg/dL (0.55-1.3); POTASSIUM 3.7 mmol/L (3.5-5.1); TOT PROT 9.8 g/dl (6.4-8.2)
[2019-06-01] MEDS ORDERED: ALBUTEROL SO4 0.083% IH SOL 2.5 MG/3 ML VIAL.NEB. NEB ONE ×2 (20:52→21:10)
[2019-06-01] MEDS ORDERED: PIPERACILLIN/TAZOB 4.5 GM 4.5 GM in DEXTROSE 5%-WATER 100 ML IVPB ONE (22:42)
[2019-06-01] MEDS ORDERED: VANCOMYCIN 1 GM in D5W (PRE-DOCKED) 1,000 MG/250 ML IVPB ONE (22:42)
--- NOTE | 2019-06-01 23:12 | PN ---
Teaching Attending Note Name of Resident: Brandon Lance ATTENDING PHYSICIAN STATEMENT I saw and evaluated the patient. I reviewed the resident's note and discussed the case with the resident. I agree with the resident's findings and plan as documented. SUBJECTIVE: 24-year-old male from [facility], developmental delay, presenting with cough, fever, tachycardia, tachypnea. Reportedly on Tamiflu prophylaxis dose. Unable to provide any history due to severe mental retardation. Patient noted to be full code. OBJECTIVE: Last Vital Signs Temp Pulse Resp BP Pulse Ox 101.6 F H 108 H 20 107/52 L 99 06/01/19 19:10 06/01/19 22:19 06/01/19 22:19 06/01/19 22:19 06/01/19 22:19 GENERAL: Severe respiratory distress HEENT: Normocephalic, atraumatic. PERRLA, EOMI. No conjunctival pallor. Sclera are non- icteric. Moist mucous membranes. Oropharynx is clear. NECK: Supple. Full ROM. No JVD. Carotid pulses 2+ and symmetric, without bruits. No thyromegaly. No lymphadenopathy. CARDIOVASCULAR: Tachycardia. No murmurs, rubs, or gallops. Distal pulses are 2+ and symmetric. PULMONARY: Coarse breath sounds bilaterally ABDOMINAL: Soft. Non-tender. Non-distended. No rebound or guarding. No organomegaly. Normoactive bowel sounds. PEG tube in place MUSCULOSKELETAL Normal range of motion at all joints. No bony deformities or tenderness. No CVA tenderness. EXTREMITIES: No cyanosis. No clubbing. No edema. No calf tenderness. SKIN: Warm and dry. Normal capillary refill. No rashes. No jaundice. NEUROLOGICAL: Underlying developmental delay PSYCHIATRIC: Underlying developmental delay Abnormal Lab Results 06/01/19 06/01/19 06/01/19 19:30 19:30 19:30 WBC 13.6 H Hgb 17.4 H Hct 51.1 H D MCV 100.6 H MCH 34.2 H Absolute Neuts (auto) 11.9 H Neutrophils % 87.3 H D Lymphocytes % 6.3 L D PT with INR 13.80 H INR 1.17 H PTT (Actin FS) 37.5 H POC VBG pCO2 POC VBG pO2 VBG HCO3 VBG O2 Sat (Renzo) VBG Base Excess Anion Gap 7 L Lactic Acid AST 41 H Alkaline Phosphatase 259 H Total Protein 9.8 H Influenza A (Rapid) 06/01/19 06/01/19 06/01/19 19:30 19:30 19:30 WBC Hgb Hct MCV MCH Absolute Neuts (auto) Neutrophils % Lymphocytes % PT with INR INR PTT (Actin FS) POC VBG pCO2 55.3 H POC VBG pO2 < 49 H VBG HCO3 29.9 H VBG O2 Sat (Renzo) 57.4 L VBG Base Excess 3.0 H Anion Gap Lactic Acid 2.7 H* AST Alkaline Phosphatase Total Protein Influenza A (Rapid) Positive A Imaging studies reviewed ASSESSMENT AND PLAN: Critically ill 24-year-old male with developmental delay, mental retardation, presenting with acute onset severe respiratory distress, hypoxia, found to be positive for influenza A. Suspect likely influenza pneumonitis, cannot rule out underlying pneumonia. Possible aspiration pneumonia versus community- acquired pneumonia. Given severe hypoxia would rule out PE as patient is rather bedbound. In the ER patient was noted to be unable to protect his secretions and decision was made to intubate patient due to respiratory failure and inability to protect his airway. Leukocytosis, lactic acidosis, influenza A positive.Patient noted to be full code. Admit to ICU Vent management Continue on mechanical ventilation ABG and adjust vent settings as needed Vancomycin and Zosyn empirically Tamiflu twice daily Infectious disease consultation Blood cultures, sputum culture, urine Legionella antigen CTA of chest to rule out PE NG tube Start tube feedings once NG tube confirmed BGM's every 6 hours IV fluid hydration Repeat lactate Contact and droplet Precautions for influenza A Strict handwashing #Hemochromatosissuspect secondary to intravascular fluid volume depletion IV fluid hydration Repeat CBC Heparin subcutaneously for DVT prophylaxis 40 minutes spent on this critically ill patient
--- NOTE | 2019-06-01 23:39 | HP ---
CHIEF COMPLAINT: PCP: Dr. Valentino HISTORY OF PRESENT ILLNESS: This is a 24 year old male, a resident of [place], with PMH significant for CP , epilepsy, herpes encephalitis, GERD, and aspiration pneumonia. Health aide was at bedside to provide a history. He was sent to the ER after he developed a non productive cough and was noticed to be warm to the touch, crying frequently , and short of breath. His temperature was recorded at 100.2 F and HR of 110. Once he arrived at the ER, he was noticed to have scant hemoptysis. She states that he has no vomiting, diarrhea, constipation, melena, hematuria, foul smelling urine, or signs of abdominal pain. Of note, several residents at [place] have been suffering from the flu. He was given the flu vaccine on Mar 02 and has been on Tamiflu 75mg since May 29. He was previously admitted to [facility] in Jan 2019 and was treated for aspiration pneumonia with Vanc/Zosyn. While in the ER, he suddenly decompensated likely due to aspiration with RR in 40s, was subsequently intubated and placed on Fentanyl/Propofol drip. ER course was notable for: (1) CXR: L lobe infiltrate observed (2) WBC: 13.6, LA 2.7 (3) LR 1L, Vanc/Zosyn started (4) Influenza A positive Recent Travel: denies PAST MEDICAL HISTORY: As listed in HPI PAST SURGICAL HISTORY: PEG tube placement Social History: Smoking: none Alcohol: none Drugs: none Allergies No Known Allergies Allergy (Verified 06/01/19 19:09) HOME MEDICATIONS: Home Medications Medication Instructions Recorded Acyclovir 400 mg GT BID 04/25/17 Baclofen 10 mg GT BID 04/25/17 Clobazam [Onfi -] 10 mg GT HS 04/25/17 Clonazepam 1.5 mg GT TID 04/25/17 Lactobacillus Acidophilus 1 each GT HS 04/25/17 [Acidophilus] Lamotrigine 200 mg GT BID 04/25/17 Multivitamin [Poly-Vitamin] 1 each GT HS 04/25/17 Phenobarbital 48.6 mg GT BID 04/25/17 Ranitidine [Zantac -] 75 mg GT BID #0 tab 03/29/18 Diazepam Rectal Gel [Diastat 7.5 mg [place] PRN PRN 05/23/18 Rectal Gel -] Fructooligosaccharides/Polydex 15 gm GT HS 05/23/18 [Fiber-Stat 15 gm/30 ml Liquid] Protein Supplement [Promod] 946 ml GT DAILY 05/23/18 Budesonide [Pulmicort 0.25 mg 1 neb IH BID 02/05/19 Nebulizer -] Fluticasone Prop 0.05% Nasal 2 spray NS AM 02/05/19 [Flonase -] Magnesium Hydrox 2400MG/30Ml [Milk 20 ml GT BID 02/05/19 of Magnesia -] Albuterol 2.5/Ipratropium 0.5 1 [employer] [facility] IH QID PRN #30 neb 02/14/19 [Duoneb -] Clobazam [Onfi -] 5 mg GT DAILY #30 tablet MDD 5mg 02/14/19 /24h Bacitracin - [Bacitracin Topical 1 applic TP BID 06/01/19 Ointment -] Sodium Chloride/Aloe Vera [[place] 22 ml NS BID 06/01/19 Saline Nasal Gel [place]] REVIEW OF SYSTEMS CONSTITUTIONAL: fevers, chills Absent: fever, chills, diaphoresis, generalized weakness, malaise, loss of appetite, weight change HEENT: Absent: rhinorrhea, nasal congestion, throat pain, throat swelling, difficulty swallowing, mouth swelling, ear pain, eye pain, visual changes CARDIOVASCULAR: Absent: chest pain, syncope, palpitations, irregular heart rate, lightheadedness , peripheral edema RESPIRATORY: cough, dyspnea Absent: cough, shortness of breath, dyspnea with exertion, orthopnea, wheezing, stridor, hemoptysis GASTROINTESTINAL: Absent: abdominal pain, abdominal distension, nausea, vomiting, diarrhea, constipation, melena, hematochezia GENITOURINARY: Absent: dysuria, frequency, urgency, hesitancy, hematuria, flank pain, genital pain MUSCULOSKELETAL: Absent: myalgia, arthralgia, joint swelling, back pain, neck pain SKIN: Absent: rash, itching, pallor HEMATOLOGIC/IMMUNOLOGIC: Absent: easy bleeding, easy bruising, lymphadenopathy, frequent infections ENDOCRINE: Absent: unexplained weight gain, unexplained weight loss, heat intolerance, cold intolerance NEUROLOGIC: Absent: headache, focal weakness or paresthesias, dizziness, unsteady gait, seizure, mental status changes, bladder or bowel incontinence PSYCHIATRIC: Absent: anxiety, depression, suicidal or homicidal ideation, hallucinations. PHYSICAL EXAMINATION Vital Signs - 24 hr 06/01/19 06/01/19 06/01/19 19:10 19:15 19:30 Temperature 101.6 F H Pulse Rate 128 H Pulse Rate [ 138 H 130 H Radial] Respiratory 52 H 48 H 48 H Rate Blood Pressure 108/66 Blood Pressure 108/66 121/74 [Right Arm] O2 Sat by Pulse 96 95 94 L Oximetry (%) 06/01/19 06/01/19 06/01/19 20:15 20:30 20:31 Temperature Pulse Rate Pulse Rate [ 120 H 128 H Radial] Respiratory 42 H 42 H Rate Blood Pressure Blood Pressure 119/71 109/58 L [Right Arm] O2 Sat by Pulse 94 L 97 95 Oximetry (%) 06/01/19 06/01/19 21:00 22:19 Temperature Pulse Rate Pulse Rate [ 130 H 108 H Radial] Respiratory 32 H 20 Rate Blood Pressure Blood Pressure 116/61 107/52 L [Right Arm] O2 Sat by Pulse 96 99 Oximetry (%) GENERAL: AOx0 HEAD: Microcephalic features EYES: Pupils equal, round and reactive to light, extraocular movements intact, sclera anicteric, conjunctiva clear. No lid lag. EARS, NOSE, THROAT: LUNGS: On NRB, fine crackles in apices B/L HEART: Tachycardic, regular rhythm, murmurs ABDOMEN: Soft, nontender, not distended, normoactive bowel sounds, no guarding, no rebound, no masses. No hepatomegaly or splenomegaly. LOWER EXTREMITIES: 2+ pulses, warm, well-perfused. No calf tenderness. No peripheral edema. NEUROLOGICAL: Unable to assess SKIN: Warm, dry, normal turgor, no rashes or lesions noted, normal capillary refill. Laboratory Results - last 24 hr 06/01/19 06/01/19 06/01/19 19:30 19:30 19:30 WBC 13.6 H RBC 5.08 Hgb 17.4 H Hct 51.1 H D MCV 100.6 H MCH 34.2 H MCHC 34.0 RDW 13.5 D Plt Count 225 D MPV 10.4 D Absolute Neuts (auto) 11.9 H Neutrophils % 87.3 H D Lymphocytes % 6.3 L D Monocytes % 6.0 Eosinophils % 0.1 D Basophils % 0.3 Nucleated RBC % 0 PT with INR 13.80 H INR 1.17 H PTT (Actin FS) 37.5 H VBG pH POC VBG pCO2 POC VBG pO2 VBG HCO3 VBG O2 Sat (Renzo) VBG Base Excess Sodium Potassium Chloride Carbon Dioxide Anion Gap BUN Creatinine Est GFR (CKD-EPI)AfAm Est GFR (CKD-EPI)NonAf Random Glucose Lactic Acid Calcium Total Bilirubin AST ALT Alkaline Phosphatase Troponin I < 0.02 Total Protein Albumin Urine Color Urine Appearance Urine pH Ur Specific [place] Urine Protein Urine Glucose (UA) Urine Ketones Urine Blood Urine Nitrite Urine Bilirubin Urine Urobilinogen Ur Leukocyte Esterase Influenza A (Rapid) Influenza B (Rapid) Blood Type Antibody Screen 06/01/19 06/01/19 06/01/19 19:30 19:30 19:30 WBC RBC Hgb Hct MCV MCH MCHC RDW Plt Count MPV Absolute Neuts (auto) Neutrophils % Lymphocytes % Monocytes % Eosinophils % Basophils % Nucleated RBC % PT with INR INR PTT (Actin FS) VBG pH POC VBG pCO2 POC VBG pO2 VBG HCO3 VBG O2 Sat (Renzo) VBG Base Excess Sodium 136 Potassium 3.7 Chloride 100 Carbon Dioxide 29 Anion Gap 7 L BUN 15.7 Creatinine 0.9 Est GFR (CKD-EPI)AfAm 139.04 Est GFR (CKD-EPI)NonAf 119.96 Random Glucose 77 Lactic Acid 2.7 H* Calcium 9.4 Total Bilirubin 0.3 AST 41 H ALT 53 Alkaline Phosphatase 259 H Troponin I Total Protein 9.8 H Albumin 4.6 Urine Color Urine Appearance Urine pH Ur Specific [place] Urine Protein Urine Glucose (UA) Urine Ketones Urine Blood Urine Nitrite Urine Bilirubin Urine Urobilinogen Ur Leukocyte Esterase Influenza A (Rapid) Positive A Influenza B (Rapid) Negative Blood Type Antibody Screen 06/01/19 06/01/19 06/01/19 19:30 19:30 19:30 WBC RBC Hgb Hct MCV MCH MCHC RDW Plt Count MPV Absolute Neuts (auto) Neutrophils % Lymphocytes % Monocytes % Eosinophils % Basophils % Nucleated RBC % PT with INR INR PTT (Actin FS) VBG pH 7.35 POC VBG pCO2 55.3 H POC VBG pO2 < 49 H VBG HCO3 29.9 H VBG O2 Sat (Renzo) 57.4 L VBG Base Excess 3.0 H Sodium Potassium Chloride Carbon Dioxide Anion Gap BUN Creatinine Est GFR (CKD-EPI)AfAm Est GFR (CKD-EPI)NonAf Random Glucose Lactic Acid Calcium Total Bilirubin AST ALT Alkaline Phosphatase Troponin I Total Protein Albumin Urine Color Yellow Urine Appearance Clear Urine pH 7.5 Ur Specific [place] 1.026 Urine Protein Trace Urine Glucose (UA) Negative Urine Ketones Negative Urine Blood Negative Urine Nitrite Negative Urine Bilirubin Negative Urine Urobilinogen 0.2 Ur Leukocyte Esterase Negative Influenza A (Rapid) Influenza B (Rapid) Blood Type O POSITIVE Antibody Screen Negative ASSESSMENT/PLAN: 24M [place] resident with PMH significant of CP, epilepsy, herpes encephalitis , GERD, and aspiration pneumonia. He was sent to the ER after he developed a non productive cough and was noticed to be warm to the touch, crying frequently , and short of breath. Was admitted for management of sepsis 2/2 pneumonia #Sepsis 2/2 Pneumonia vs Influenza - Likely 2/2 CAP and/or influenza - WBC 13.6 - Influenza A positive, will continue Tamiflu 75mg BID - LA 2.7, will hydrate and F/U - CXR: L lobe infiltrate observed - Blood, urine cx, urine for Strep/Legionella ordered - Started on Vanc/Zosyn #Hypoxic respiratory distress - Respiratory distress likely 2/2 to pneumonia - VBGs: pH 7.35, CO2 55.3, O2 <49, HCO3 29.9 - Started on NRB in ER at 10L O2, decompensated in ER likely due to aspiration with RR in 40s, was subsequently intubated and placed on Fentanyl/Propofol drip - ABGs on 100% FiO2: pH 7.4, O2 111, CO2 44.3, HCO3 27.1 - CTA ordered to r/o PE - Continue home Pulmicort nebs #Hx of seizures - Currently asymptomatic - Will continue home meds #Polycythemia - H&H 17.4/51.1, baseline seems to be around 1340 as per previous records, may be relative due to stress - Will re-check after hydrating #Transaminitis withy elevated ALP - AST 41 and ALP 259 - Patient has had elevated liver enzymes upon previous admissions - Likely 2/2 to medication side effect, will continue to monitor #Hx of herpes encephalitis - Continue acyclovir 400 BID #DVT ppx - Heparin SQ #FEN - Received 1L LR in ER - Resume tube feeds through PEG #Dispo - Monitor on med/surg Visit type - Emergency Visit Emergency Visit: Yes ED Registration Date: 06/01/19 Care time: The patient presented to the Emergency Department on the above date and was hospitalized for further evaluation of their emergent condition. - New Patient This patient is new to me today: Yes Date on this admission: 06/02/19 - Critical Care Critical Care patient: Yes Total Critical Care Time (in minutes): 47 Critical Care Statement: The care of this patient involved high complexity decision making to prevent further life threatening deterioration of the patient 's condition and/or to evaluate & treat vital organ system(s) failure or risk of failure. ATTENDING PHYSICIAN STATEMENT I saw and evaluated the patient. I reviewed the resident's note and discussed the case with the resident. I agree with the resident's findings and plan as documented. SUBJECTIVE: OBJECTIVE: ASSESSMENT AND PLAN:
[2019-06-01] MEDS ORDERED: PIPERACILLIN/TAZOB 4.5 GM 4.5 GM/100 ML BAG IVPB ONE (23:48)
[2019-06-01] MEDS ORDERED: VANCOMYCIN 1 GRAM (PRE-DOCKED) 1,000 MG/250 ML BAG IVPB ONE (23:48)
[2019-06-02] MEDS ORDERED: OSELTAMIVIR PHOSPHATE 6 MG/1 ML PEG ONE (00:11)
[2019-06-02] MEDS ORDERED: diazePAM ACUDIAL 5-7.5-10 MG 1 EACH KIT RC PRN (00:23)
[2019-06-02] MEDS ORDERED: ACETAMINOPHEN 1000 MG/100 ML VIAL (NON FORMULARY) IVPB PRN (00:32)
[2019-06-02] MEDS ORDERED: RAPID SEQUENCE INTUBATION KIT NR ONE (00:32)
[2019-06-02] MEDS ORDERED: MIDAZOLAM HCL 2 MG/2 ML SINGLE DOSE VIAL ONE (00:42)
[2019-06-02] MEDS ORDERED: MIDAZOLAM HCL 5 MG/1 ML Single Dose Vial IVPUSH ONE (00:47)
[2019-06-02] MEDS ORDERED: SUCCINYLCHOLINE CHLORIDE 200 MG/10 ML VIAL IVPUSH ONE (00:48)
[2019-06-02] MEDS ORDERED: ROCURONIUM BROMIDE 50 MG/5 ML VIAL IVPUSH ONE (00:55)
[2019-06-02] MEDS ORDERED: PROPOFOL 2,000,000 MCG/200 ML VIAL ONE (01:01)
[2019-06-02] MEDS ORDERED: fentaNYL CITRATE 250 MCG/5 ML VIAL ONE ×2 (01:04→09:43)
[2019-06-02] MEDS ORDERED: PIPERACILLIN/TAZOB 3.375 GM 3.375 GM in DEXTROSE 5%-WATER - 50 ML IVPB ONE (01:28)
--- NOTE | 2019-06-02 01:28 | CONSULT ---
Consultation: REQUESTING PROVIDER: CONSULT REQUEST: We have been asked to medically evaluate this patient for evaluation of patient with significant tachypnea and inability to protect airway requiring intubation. HISTORY OF PRESENT ILLNESS: 24 yo M PMH CP, epilepsy, herpes encephalitis, severe MR, nonverbal at baseline , GERD, and aspiration pneumonia, sent from [place] with temperature of 100.2F and tachycardia to the 110s. Notably, multiple residents at [facility] have been diagnosed with the flu, and the patient had been on Tamiflu 75 mg daily for prophylaxis since 05/29/2019. Patient received flu shot 03/02/2019. In the ED, patient was seen to be tachypneic to the 50s and was started on nonrebreather at 15L with improved oxygenation. Patient also found to be rapid influenza A positive and was given acetaminophen. However, patient once again grew increasingly tachypneic and was having increasing difficulty with secretions, leading to him being intubated. REVIEW OF SYSTEMS: Unable to assess ROS due to severe MR. PHYSICAL EXAMINATION Vital Signs - 24 hr 06/01/19 06/01/19 06/01/19 19:10 19:15 19:30 Temperature 101.6 F H Pulse Rate 128 H Pulse Rate [ 138 H 130 H Radial] Respiratory 52 H 48 H 48 H Rate Blood Pressure 108/66 Blood Pressure 108/66 121/74 [Right Arm] O2 Sat by Pulse 96 95 94 L Oximetry (%) 06/01/19 06/01/19 06/01/19 20:15 20:30 20:31 Temperature Pulse Rate Pulse Rate [ 120 H 128 H Radial] Respiratory 42 H 42 H Rate Blood Pressure Blood Pressure 119/71 109/58 L [Right Arm] O2 Sat by Pulse 94 L 97 95 Oximetry (%) 06/01/19 06/01/19 21:00 22:19 Temperature Pulse Rate Pulse Rate [ 130 H 108 H Radial] Respiratory 32 H 20 Rate Blood Pressure Blood Pressure 116/61 107/52 L [Right Arm] O2 Sat by Pulse 96 99 Oximetry (%) GENERAL: intubated, being bagged HEAD: microcephalic EYES: Pupils equal, round and reactive to light. LUNGS: crackles in bilateral apices HEART: tachycardic, regular rhythm ABDOMEN: Soft, nontender, not distended, PEG tube in LUQ. MUSCULOSKELETAL: diffusely contracted. UPPER EXTREMITIES: 2+ pulses, warm, well-perfused. No peripheral edema. LOWER EXTREMITIES: 2+ pulses, warm, well-perfused. No calf tenderness. No peripheral edema. NEUROLOGICAL: AAOX0. Unable to assess cranial nerves, gait, or speech. PSYCHIATRIC: Unable to assess SKIN: Warm, dry Laboratory Results - last 24 hr 06/01/19 06/01/19 06/01/19 19:30 19:30 19:30 WBC 13.6 H RBC 5.08 Hgb 17.4 H Hct 51.1 H D MCV 100.6 H MCH 34.2 H MCHC 34.0 RDW 13.5 D Plt Count 225 D MPV 10.4 D Absolute Neuts (auto) 11.9 H Neutrophils % 87.3 H D Lymphocytes % 6.3 L D Monocytes % 6.0 Eosinophils % 0.1 D Basophils % 0.3 Nucleated RBC % 0 PT with INR 13.80 H INR 1.17 H PTT (Actin FS) 37.5 H VBG pH POC VBG pCO2 POC VBG pO2 VBG HCO3 VBG O2 Sat (Renzo) VBG Base Excess Sodium Potassium Chloride Carbon Dioxide Anion Gap BUN Creatinine Est GFR (CKD-EPI)AfAm Est GFR (CKD-EPI)NonAf Random Glucose Lactic Acid Calcium Total Bilirubin AST ALT Alkaline Phosphatase Troponin I < 0.02 Total Protein Albumin Urine Color Urine Appearance Urine pH Ur Specific [place] Urine Protein Urine Glucose (UA) Urine Ketones Urine Blood Urine Nitrite Urine Bilirubin Urine Urobilinogen Ur Leukocyte Esterase Influenza A (Rapid) Influenza B (Rapid) Blood Type Antibody Screen 06/01/19 06/01/19 06/01/19 19:30 19:30 19:30 WBC RBC Hgb Hct MCV MCH MCHC RDW Plt Count MPV Absolute Neuts (auto) Neutrophils % Lymphocytes % Monocytes % Eosinophils % Basophils % Nucleated RBC % PT with INR INR PTT (Actin FS) VBG pH POC VBG pCO2 POC VBG pO2 VBG HCO3 VBG O2 Sat (Renzo) VBG Base Excess Sodium 136 Potassium 3.7 Chloride 100 Carbon Dioxide 29 Anion Gap 7 L BUN 15.7 Creatinine 0.9 Est GFR (CKD-EPI)AfAm 139.04 Est GFR (CKD-EPI)NonAf 119.96 Random Glucose 77 Lactic Acid 2.7 H* Calcium 9.4 Total Bilirubin 0.3 AST 41 H ALT 53 Alkaline Phosphatase 259 H Troponin I Total Protein 9.8 H Albumin 4.6 Urine Color Urine Appearance Urine pH Ur Specific [place] Urine Protein Urine Glucose (UA) Urine Ketones Urine Blood Urine Nitrite Urine Bilirubin Urine Urobilinogen Ur Leukocyte Esterase Influenza A (Rapid) Positive A Influenza B (Rapid) Negative Blood Type Antibody Screen 06/01/19 06/01/19 06/01/19 19:30 19:30 19:30 WBC RBC Hgb Hct MCV MCH MCHC RDW Plt Count MPV Absolute Neuts (auto) Neutrophils % Lymphocytes % Monocytes % Eosinophils % Basophils % Nucleated RBC % PT with INR INR PTT (Actin FS) VBG pH 7.35 POC VBG pCO2 55.3 H POC VBG pO2 < 49 H VBG HCO3 29.9 H VBG O2 Sat (Renzo) 57.4 L VBG Base Excess 3.0 H Sodium Potassium Chloride Carbon Dioxide Anion Gap BUN Creatinine Est GFR (CKD-EPI)AfAm Est GFR (CKD-EPI)NonAf Random Glucose Lactic Acid Calcium Total Bilirubin AST ALT Alkaline Phosphatase Troponin I Total Protein Albumin Urine Color Yellow Urine Appearance Clear Urine pH 7.5 Ur Specific [place] 1.026 Urine Protein Trace Urine Glucose (UA) Negative Urine Ketones Negative Urine Blood Negative Urine Nitrite Negative Urine Bilirubin Negative Urine Urobilinogen 0.2 Ur Leukocyte Esterase Negative Influenza A (Rapid) Influenza B (Rapid) Blood Type O POSITIVE Antibody Screen Negative Active Medications Generic Name Dose Route Start Last Admin Trade Name Freq PRN Reason Stop Dose Admin Acetaminophen 1,000 mg 06/02/19 00:32 Ofirmev Injection - IVPB Q8H PRN FEVER Albuterol/Ipratropium 1 amp 06/02/19 00:23 Duoneb - NEB QID PRN WHEEZING Bacitracin 1 applic 06/02/19 10:00 Bacitracin - TP BID JORGE Baclofen 10 mg 06/02/19 10:00 Lioresal - GT BID JORGE Budesonide 1 amp 06/02/19 10:00 Pulmicort 0.25 Mg Nebulizer - NEB BID JORGE Clobazam 10 mg 06/02/19 22:00 Onfi - GT HS JORGE Clobazam 5 mg 06/02/19 10:00 Onfi - GT DAILY JORGE Diazepam 7.5 mg 06/02/19 00:23 Diastat Rectal Gel - RC PRN PRN <Seizures> Fluticasone Propionate 2 spray 06/02/19 07:00 Flonase - NS AM JORGE Lamotrigine 200 mg 06/02/19 10:00 Lamictal - PO BID [facility] Magnesium Hydroxide 20 ml 06/02/19 10:00 Milk Of Magnesia - GT BID [facility] Non-Formulary Medication 400 mg 06/02/19 10:00 Acyclovir [Acyclovir] GT BID [facility] Non-Formulary Medication 1.5 mg 06/02/19 06:00 Clonazepam [Clonazepam] GT TID JORGE Non-Formulary Medication 15 gm 06/02/19 22:00 Fructooligosaccharides/Polydex [Fiber-Stat 15 Gm/30 Ml Liquid] GT [facility] Non-Formulary Medication 1 each 06/02/19 22:00 Lactobacillus Acidophilus [Acidophilus] GT [facility] Non-Formulary Medication 1 each 06/02/19 22:00 Multivitamin [Poly-Vitamin] GT [facility] Non-Formulary Medication 48.6 mg 06/02/19 10:00 Phenobarbital [Phenobarbital] GT BID [facility] Non-Formulary Medication 946 ml 06/02/19 10:00 Protein Supplement [Promod] GT DAILY [facility] Non-Formulary Medication 75 mg 06/02/19 10:00 Ranitidine [Zantac -] GT BID [facility] Non-Formulary Medication 22 ml 06/02/19 10:00 Sodium Chloride/Aloe Vera [Henley Saline Nasal Gel [place]] NS BID [facility] ASSESSMENT/PLAN: 24 yo M PMH cerebral palsy, epilepsy, herpes encephalitis, severe MR, nonverbal at baseline, GERD, and aspiration pneumonia, found to be rapid influenza A positive, s/p intubation due to worsening tachypnea and secretions causing difficulty protecting his airway. Neuro: - hx cerebral palsy, epilepsy, herpes encephalitis, severe mental retardation - home meds: baclofen 10mg GT BID, clobazam 5 mg GT daily and 10 mg GT QHS, clonazepam 1.5 mg GT TID, rectal diazepam gel, Lamotrigine 200mg BID, phenobarbital 48.6 mg GT BID - nonverbal at baseline - unable to assess orientation - ctm CV: - tachycardic, but not hypotensive - ctm Respiratory: - hx aspiration PNA - home meds: budesonide 0.25 mg, Fluticasone, Duoneb - found to be rapid influenza A positive - intubated, on ventilator at RR 14, TV 350, FiO2, satting 97% - fentanyl/propofol drip - concern for possible L sided infiltrate - concern for possible pulmonary embolism - Chest CTA: no definite PE, but suboptimal view. Patchy densities in the ABHISHEK and more confluent densities in LLL, subtotal atelectasis v PNA. - ctm GI: - hx GERD - home meds: Lactobacillus acidophilus, Ranitidine 75 mg BID, milk of magnesium - ctm Renal: - Lactate 2.7 - VBG: pH 7.35, pCO2 55.3, HCO3 29.9 - Cr 0.9 - ctm Endo: - no acute concerns - ctm Heme/Onc: - WBC 13.6 - Hgb 17.4 - MCV 100.6 ID: - febrile to 101.9F, giving acetaminophen PRN - given 1g vancomycin and piptazo 4.5g in the ED - giving 3.375g TID piptazo and 1g vancomycin daily - rapid influenza A positive - giving Tamiflu 75 mg BID for the next 5 days - ctm PPX: - heparin 5000 units SQ TID - SCDs FENLTD: - intubated, on ventilator - replete lytes PRN - NPO - PEG tube in LUQ Dispo: We will continue to follow the patient. Thank you for this consultative opportunity. Visit type - Emergency Visit Emergency Visit: Yes ED Registration Date: 06/01/19 Care time: The patient presented to the Emergency Department on the above date and was hospitalized for further evaluation of their emergent condition. - New Patient This patient is new to me today: Yes Date on this admission: 06/02/19 - Critical Care Critical Care patient: Yes Total Critical Care Time (in minutes): 45 Critical Care Statement: The care of this patient involved high complexity decision making to prevent further life threatening deterioration of the patient 's condition and/or to evaluate & treat vital organ system(s) failure or risk of failure. ATTENDING PHYSICIAN STATEMENT I saw and evaluated the patient. I reviewed the resident's note and discussed the case with the resident. I agree with the resident's findings and plan as documented. SUBJECTIVE: OBJECTIVE: ASSESSMENT AND PLAN:
[2019-06-02] MEDS: FENTANYL INJECTION 500 MCG in DEXTROSE 5%-WATER - 90 ML IVPB SCH ×2 (01:30→09:47)
[2019-06-02] MEDS ORDERED: PHENYLEPHRINE HCL 10 MG/1 ML SINGLE DOSE VIAL IVPB PRN (01:33)
[2019-06-02] MEDS ORDERED: ROCURONIUM BROMIDE 50 MG/5 ML SYRINGE IVPUSH ONE (01:33)
[2019-06-02] MEDS ORDERED: ROCURONIUM BROMIDE 50 MG/5 ML VIAL IV ONE (01:49)
--- NOTE | 2019-06-02 01:52 | PDOC ---
ED Treatment Course - LABORATORY CBC & Chemistry Diagram: 06/01/19 19:30 06/01/19 19:30 - ADDITIONAL ORDERS Additional order review: Laboratory Results 06/01/19 06/01/19 06/01/19 19:30 19:30 19:30 PT with INR INR PTT (Actin FS) VBG pH 7.35 POC VBG pCO2 55.3 H POC VBG pO2 < 49 H VBG HCO3 29.9 H VBG O2 Sat (Renzo) 57.4 L VBG Base Excess 3.0 H Sodium Potassium Chloride Carbon Dioxide Anion Gap BUN Creatinine Est GFR (CKD-EPI)AfAm Est GFR (CKD-EPI)NonAf Random Glucose Lactic Acid Calcium Total Bilirubin AST ALT Alkaline Phosphatase Troponin I Total Protein Albumin Urine Color Yellow Urine Appearance Clear Urine pH 7.5 Ur Specific [place] 1.026 Urine Protein Trace Urine Glucose (UA) Negative Urine Ketones Negative Urine Blood Negative Urine Nitrite Negative Urine Bilirubin Negative Urine Urobilinogen 0.2 Ur Leukocyte Esterase Negative Blood Type O POSITIVE Antibody Screen Negative 06/01/19 06/01/19 06/01/19 19:30 19:30 19:30 PT with INR INR PTT (Actin FS) VBG pH POC VBG pCO2 POC VBG pO2 VBG HCO3 VBG O2 Sat (Renzo) VBG Base Excess Sodium 136 Potassium 3.7 Chloride 100 Carbon Dioxide 29 Anion Gap 7 L BUN 15.7 Creatinine 0.9 Est GFR (CKD-EPI)AfAm 139.04 Est GFR (CKD-EPI)NonAf 119.96 Random Glucose 77 Lactic Acid 2.7 H* Calcium 9.4 Total Bilirubin 0.3 AST 41 H ALT 53 Alkaline Phosphatase 259 H Troponin I < 0.02 Total Protein 9.8 H Albumin 4.6 Urine Color Urine Appearance Urine pH Ur Specific [place] Urine Protein Urine Glucose (UA) Urine Ketones Urine Blood Urine Nitrite Urine Bilirubin Urine Urobilinogen Ur Leukocyte Esterase Blood Type Antibody Screen 06/01/19 19:30 PT with INR 13.80 H INR 1.17 H PTT (Actin FS) 37.5 H VBG pH POC VBG pCO2 POC VBG pO2 VBG HCO3 VBG O2 Sat (Renzo) VBG Base Excess Sodium Potassium Chloride Carbon Dioxide Anion Gap BUN Creatinine Est GFR (CKD-EPI)AfAm Est GFR (CKD-EPI)NonAf Random Glucose Lactic Acid Calcium Total Bilirubin AST ALT Alkaline Phosphatase Troponin I Total Protein Albumin Urine Color Urine Appearance Urine pH Ur Specific [place] Urine Protein Urine Glucose (UA) Urine Ketones Urine Blood Urine Nitrite Urine Bilirubin Urine Urobilinogen Ur Leukocyte Esterase Blood Type Antibody Screen 06/01/19 19:30 RBC 5.08 MCV 100.6 H MCHC 34.0 RDW 13.5 D MPV 10.4 D Neutrophils % 87.3 H D Lymphocytes % 6.3 L D Monocytes % 6.0 Eosinophils % 0.1 D Basophils % 0.3 - RADIOLOGY Radiology Studies Ordered: Category Date Time Status CHEST X-RAY PORTABLE* [RAD] Stat Radiology 06/01/19 19:24 Completed - Medications Given in the ED: ED Medications Discontinued Medications Generic Name Dose Route Start Last Admin Trade Name Freq PRN Reason Stop Dose Admin Acetaminophen 1,000 mg 06/01/19 19:25 06/01/19 19:45 Ofirmev Injection - IVPB 06/01/19 19:26 1,000 mg ONCE ONE Administration Albuterol Sulfate 1 amp 06/01/19 20:52 06/01/19 21:15 Ventolin 0.083% Nebulizer Soln - NEB 06/01/19 20:53 1 amp ONCE ONE Administration Lactated Ringer's 500 ml 06/01/19 20:11 06/01/19 20:22 Lactated Ringers Solution IV 06/01/19 20:12 500 ml ONCE ONE Administration Lactated Ringer's 500 ml 06/01/19 21:10 06/01/19 21:15 Lactated Ringers Solution IV 06/01/19 21:11 500 ml ONCE ONE Administration Vancomycin HCl 1,000 mg 06/01/19 22:42 06/01/19 23:56 Vancomycin (Pre-Docked) IVPB 06/01/19 22:43 1,000 mg ONCE ONE Administration Protocol Procedures - Additional Procedures Progress: Endotracheal Intubation Procedure Note INDICATION: Acute respiratory failure PROCEDURE MOTION PICTURE EQUIPMENT SUPERVISOR: Dalton Beltrán M.D. PGY2 ATTENDING PHYSICIAN: Dr. Meade. In Attendance (Y/N) Y CONSENT: Emergent. General consent form received from [facility]. PROCEDURE SUMMARY: A time out was performed. My hands were washed immediately prior to the procedure. I wore a mask with protective eyewear, gown, and gloves throughout the procedure. The patient was placed on a desk monitor including continuous pulse oximetry. Rapid Sequence Intubation was conducted. The patient received Versed for induction and Succinylcholine for adequate paralysis. Using a Mac direct laryngoscopy and a size 7.5 endotracheal tube with stylet, the patient was intubated on the first attempt. The stylet was removed and cuff balloon was inflated. Appropriate endotracheal tube position was confirmed by direct visualization of vocal cord passage, fogging of the tube, continuous waveform capnography, and symmetric breath sounds. The tube was secured at 22 cm at the lips. Post intubation chest x-ray not ordered as pt is undergoing emergent chest CTA. ED Progress Note - Progress Note Progress Note: Pt found to be more acutely tachypenic. Concern for pending respiratory failure. Decision made to emergently intubate the pt using RSI protocol. See procedure section. Procedure tolerated well. No post-intubation hypoxia. Ordered Rocuronium and Fentaly (push and drip) post-intubation for sedation and for Chest CTA study. Required second Rocuronium push just prior to CTA. Case discussed in person with resident Dr. Ca of the ICU service. Will accept the pt to the ICU. Discharge - Discharge Information Problems reviewed: Yes Clinical Impression/Diagnosis: Influenza A, Dependence on continuous supplemental oxygen, Tachycardia, Dehydration fever Fever Qualifiers: Fever type: unspecified Qualified Code(s): R50.9 - Fever, unspecified Condition: Guarded - Follow up/Referral - Patient Discharge Instructions - Post Discharge Activity
[2019-06-02] MEDS ORDERED: ACETAMINOPHEN 1000 MG/100 ML VIAL (NON FORMULARY) IVPB ONE ×2 (02:15)
[2019-06-02] MEDS ORDERED: VANCOMYCIN 1 GRAM (PRE-DOCKED) 1,000 MG/250 ML BAG IVPB SCH ×2 (03:00→12:00)
[2019-06-02] MEDS: methylPREDNISolone NA SUCC 40 MG/1 ML VIAL IVPUSH SCH ×3 (03:19→18:14)
[2019-06-02] MEDS: PROPOFOL 1,000,000 MCG/100 ML VIAL IVPB SCH (03:21)
[2019-06-02] MEDS: PANTOPRAZOLE SODIUM 40 MG VIAL IVPUSH SCH ×2 (03:21→09:24)
[2019-06-02] MEDS: OSELTAMIVIR PHOSPHATE 75 MG CAPSULE PEG SCH ×3 (03:22→21:22)
[2019-06-02 03:33] LABS: ARTERIAL BLOOD GAS BASE EXCESS 2.4 meq/l (-2-2); ARTERIAL BLOOD GAS PCO2 44.3 mmHg (35-45); ARTERIAL BLOOD GAS PO2 111 mmHg (80-100)
[2019-06-02 03:34] LABS: ALLENS TEST POSITIVE
[2019-06-02] MEDS ORDERED: HEPARIN NA (PORCINE) 5,000 UNITS/ML 1ML VIAL SQ SCH (06:00)
[2019-06-02] MEDS ORDERED: VANCOMYCIN 1 GM PREMIX - 1 GM/200 ML BAG IVPB SCH (06:15)
[2019-06-02] MEDS: clonazePAM 0.5 MG TABLET GT SCH ×3 (06:15→21:18)
[2019-06-02] MEDS: SODIUM CHLORIDE 1,000 ML IV SCH ×2 (06:15→18:13)
[2019-06-02] MEDS: FLUTICASONE PROP 0.05% 16 GM NASAL SPRAY NS SCH (06:20)
[2019-06-02 06:54] LABS: HEMATOCRIT 42.3 % (35.4-49); HEMOGLOBIN 14.7 GM/dL (11.7-16.9); MCH 34.7 pg (25.7-33.7); MCHC 34.9 g/dl (32.0-35.9); MEAN CELL VOLUME 99.4 fl (80-96); MEAN PLT VOLUME 10.8 fl (7.5-11.1); PLATELET COUNT 150 K/MM3 (134-434); RBC 4.25 M/mm3 (4.00-5.60); RDW 13.2 % (11.9-15.9)
[2019-06-02 07:00] LABS: INR 1.27 (0.83-1.09)
--- NOTE | 2019-06-02 08:06 | PN ---
Teaching Attending Note Name of Resident: Halima Camacho ATTENDING PHYSICIAN STATEMENT I saw and evaluated the patient. I reviewed the resident's note and discussed the case with the resident. I agree with the resident's findings and plan as documented. Seen and examined; please see resident note for further historical information. I personally verified all alvarez historical information and exam findings. Personally interpreted all imaging and diagnostics and reviewed appropriate consults. I reviewed all labs and vital signs as per resident note and EMR as documented. I agree with the above assessment and plan unless supplemented by myself in the following. Patient is intubated and sedated in the ICU. He is 24-year-old male who is known to the service through multiple admissions through the [facility]. He is critically ill and remains on the medicine service with pulmonary critical care medicine consult. Hospital medicine has a limited role in the management of this critically ill patient. ABG reveals PaO2 of 111 with normal PCO2 and bicarb nearly within normal limits. Slight coagulopathy observed with INR at 1.27 no white count and persisting macrocytosis without anemia. Patient's lactic acid was 2.7 initially but down trended to 1.5. He is positive for influenza A which is likely because of his underlying pneumonia. He remains on Tamiflu, Zosyn, was paralyzed with rocuronium. We will verify position of the ET tube has potential missed position was noted on the CT scan that was obtained overnight. Could not complete review of systems secondary to underlying fact that he is intubated on the ventilator VS, labs, imaging reviewed Intubated and sedated on ventillator resting in bed, vent settings per flowsheet ET Tube in place; IV access noted with no apparent surrounding cellulitis RRR s1/2 no mgr Normal muscle tone, moves all 5 extremities with normal apparent strength Neck is supple, trachea midline, no eden LN Lungs CTAB with sym expansion NT ND +BS no eden organomegaly CN2-12 wnl; no FND but limited given clinical circumstances. NC AT EOMI PERRLA Not agitated, cannot complete full psych assessment No skin breakdown or rashes noted Imaging reviewed, CT scan and chest x-ray Telemetry reviewed EKG reviewed ASSESSMENT AND PLAN: Patient is a 24-year-old male with a past medical history that is significant for MR/CP, seizures, developmental delay, multiple episodes of aspiration pneumonia. He presents with influenza positive pneumonia with potential ARDS, oxygenation is somewhat improved, working to wean from ventilator. Not requiring pressors at this junction. Also covering for aspiration with Zosyn. ID and pulmonary critical care medicine are following. No seizure activity is observed, he will be placed on seizure precautions and monitored. Assessment and plan: Sepsis secondary to influenza pneumonia with potential aspiration component. He was recently admitted and treated with Zosyn to [facility] and completed a 7- day course. This is likely secondary to exposure at his facility given the influenza positivity. We will be covering also with Tamiflu for the appropriate course. Acute hypoxic respiratory failure secondary to the aforementioned; He is intubated and sedated on the ventilator. Weaning as per pulmonary protocol. History of Epilepsy; No seizure activity noted. Continue Lamictal, Phenobarbital, Klonopin, Onfi Asthma; Nebs/steroids as per pulmonary medicine with respect to the second issue on the last MR/Cerebral palsy Functional Quadraplegia secondary to the aforementioned. History of Herpes meningoencephalitis; Is on acyclovir. Continue. Chronic constipation; Monitor for bowel movement. Is on MiraLAX in the past. If needed can give additional dose. 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 No issues with it. Nutrition: Can get diet recs; was on promote via GT last time here. Continue. DVT px: Noted GI px: On home famotidine.
[2019-06-02] MEDS ORDERED: PIPERACILLIN/TAZOBACTAM 3.375 GM VIAL IVPB ONE ×3 (08:15→20:35)
[2019-06-02] MEDS ORDERED: DEXTROSE 5%-WATER - 50 ML IVPB ONE ×3 (08:16→20:35)
[2019-06-02 08:28] LABS: ALBUMIN 3.4 g/dl (3.4-5.0); BILIRUBIN,TOTAL 0.9 mg/dL (0.2-1); BLOOD UREA NITROGEN 11.9 mg/dL (7-18); CALCIUM 8.8 mg/dL (8.5-10.1); CREATININE 0.9 mg/dL (0.55-1.3); MAGNESIUM 2.2 mg/dL (1.8-2.4); POTASSIUM 3.9 mmol/L (3.5-5.1); TOT PROT 7.7 g/dl (6.4-8.2)
[2019-06-02] MEDS ORDERED: PIPERACILLIN/TAZOB 3.375 GM 3.375 GM in DEXTROSE 5%-WATER - 50 ML IVPB SCH ×2 (09:00→10:00)
[2019-06-02] MEDS: MAGNESIUM HYDROX 2400MG/30ML ORAL SUSPENSION 30 ML CUP GT SCH ×2 (09:25→21:20)
[2019-06-02] MEDS: LACTOBACILLUS ACIDOPHILUS 1 TABLET GT SCH (09:25)
[2019-06-02] MEDS: cloBAZam 10 MG TABLET GT SCH ×2 (09:31→21:18)
[2019-06-02] MEDS: HEPARIN NA (PORCINE) 5,000 UNITS/ML 1ML VIAL SQ SCH ×2 (09:35→21:17)
[2019-06-02] MEDS: BACITRACIN 15 GM TUBE TOPICAL OINTMENT TP SCH ×2 (09:48→21:17)
[2019-06-02] MEDS ORDERED: PROTEIN SUPPLEMENT GT SCH (10:00)
[2019-06-02] MEDS ORDERED: PANTOPRAZOLE SODIUM 40 MG VIAL IVPUSH SCH (10:00)
[2019-06-02] MEDS ORDERED: PIPERACILLIN/TAZOB 4.5 GM 4.5 GM in DEXTROSE 5%-WATER 100 ML IVPB SCH (10:00)
[2019-06-02 10:51] LABS: ANISOCYTOSIS 0; MACROCYTOSIS 0; PLATELET ESTIMATE DECREASED
--- NOTE | 2019-06-02 11:24 | PN ---
Progress Note (short form) - Note Progress Note: ID CONSULT DICTATED ACUTE RESPIRATORY FAILURE INFLUENZA A ? SUPERIMPOSED BACTERIAL PNEUMONIA AWAIT C/S CONTINUE TAMIFLU EMPIRIC ZOSYN
[2019-06-02] MEDS: lamoTRIgine 100 MG TABLET PO SCH ×2 (11:37→21:19)
[2019-06-02] MEDS: BACLOFEN 10 MG TABLET (FP) GT SCH ×2 (11:37→21:19)
[2019-06-02] MEDS: MULTIVIT-MINERALS ORAL LIQUID GT SCH (11:37)
[2019-06-02] MEDS: PHENobarbital 20 MG/5 ML UNIT-DOSE CUP GT SCH ×2 (11:38→21:22)
[2019-06-02] MEDS: BUDESONIDE 0.25 MG/2ML INH SUSP VIAL NEB SCH ×2 (11:47→20:50)
[2019-06-02] MEDS: ACYCLOVIR 200 MG/5 ML LIQUID GT SCH ×2 (11:50→21:21)
[2019-06-02] MEDS: FAMOTIDINE 40 MG/5 ML ORAL SUSPENSION NR SCH ×2 (11:51→21:21)
--- NOTE | 2019-06-02 12:09 | CONS ---
INFECTIOUS DISEASE CONSULTATION DATE OF CONSULTATION: DATE OF DICTATION: 06/02/2019 HISTORY: The patient is a 24-year-old male resident of [facility], history of cerebral palsy, mental retardation evaluated for respiratory failure, pneumonia, and acute influenza. He was admitted from the facility after he was noted to be febrile, tachycardic with hemoptysis. He required intubation in the emergency room. Rapid influenza swab was performed and was positive for influenza A. In addition, CAT scan shows bibasilar atelectasis and possible infiltrates. He was empirically treated with Zosyn and vancomycin. Patient is unable to give any additional history. According to the notes, he had received influenza vaccine and was on Tamiflu as post exposure prophylaxis at the facility starting on May 29. PAST MEDICAL HISTORY: Positive for cerebral palsy, mental retardation, seizure disorder, gastroesophageal reflux. PAST SURGICAL HISTORY: Status post feeding gastrostomy. ALLERGIES: No known allergies. LABORATORY DATA: White count 10.0, hematocrit 42.3, platelets 150, creatinine 0.9. Urinalysis negative. Cultures pending. PHYSICAL EXAMINATION: General: He is intubated in no acute distress. Vital Signs: Temperature 99.5, maximum temperature 102.8, blood pressure 100/41, pulse 90 regular, respirations 14 per minute. HEENT: Sclerae anicteric. Patient is orally intubated. Heart: Sounds S1, S2. Lungs: Air entry bilaterally. Abdomen: Soft and nontender. Extremities: Positive for contractures. IMPRESSION: 1. Acute respiratory failure. 2. Influenza A. 3. Rule out superimposed bacterial pneumonia. 4. History of cerebral palsy, mental retardation. PLAN: Obtain suction sputum culture and sensitivity. Continue ventilatory support. Await cultures. Continue Tamiflu. We will continue Zosyn. STAT dose vancomycin given pending cultures. We will follow. Thank you for the kind referral. JOSH YOUNG M.D. [id number]
--- NOTE | 2019-06-02 12:09 | ECHO ---
Name: VESTA GRAVSE Exam:Adult Echocardiogram Study Date: 06/02/2019 08:04 AM Age: 24 yrs Reason For Study: LV Function Height: 47 in Weight: 89 lb BSA: 1.1 m2 MMode/2D Measurements & Calculations IVSd: 0.57 cm Ao root diam: 2.0 cm LVIDd: 4.0 cm LA dimension: 2.9 cm LVIDs: 2.2 cm LVPWd: 0.67 cm EDV(Teich): 70.6 ml LVOT diam: 2.0 cm ESV(Teich): 16.2 ml LAV (MOD-bp): 22.1 ml Doppler Measurements & Calculations MV E max alexandru: 82.5 cm/sec Ao V2 max: 134.4 cm/sec MV A max alexandru: 75.2 cm/sec Ao max P.2 mmHg MV E/A: 1.1 MV dec time: 0.08 sec LASHAWN(V,D): 1.9 cm2 LV V1 max P.8 mmHg TR max alexandru: 205.0 cm/sec LV V1 max: 83.4 cm/sec TR max P.0 mmHg PA V2 max: 149.3 cm/sec Med Peak E' Alexandru: 8.1 cm/sec PA max P.9 mmHg Med E/e': 10.2 Lat Peak E' Alexandru: 15.3 cm/sec Lat E/e': 5.4 Procedure A complete two-dimensional transthoracic echocardiogram was performed (2D, M-mode, Doppler and color flow Doppler). Left Ventricle The left ventricular size, thickness and function are normal. The left ventricular ejection fraction is normal. Ejection Fraction = 55-60%. The left ventricular wall motion is normal. Right Ventricle The right ventricle is normal in size and function. Atria Normal left and right atrial size and function. Mitral Valve There is no mitral regurgitation noted. Tricuspid Valve There is trace tricuspid regurgitation. Right ventricular systolic pressure is normal. Aortic Valve No hemodynamically significant valvular aortic stenosis. No aortic regurgitation is present. Pulmonic Valve There is no pulmonic valvular regurgitation. Great Vessels The aortic root is normal size. Pericardium/Pleura There is no pericardial effusion. Interpretation Summary The left ventricular size, thickness and function are normal The right ventricle is normal in size and function. There is trace tricuspid regurgitation. MD Car Harrell 06/02/2019 12:08 PM
--- NOTE | 2019-06-02 12:31 | PN ---
Teaching Attending Note Name of Resident: Maurice Watson ATTENDING PHYSICIAN STATEMENT I saw and evaluated the patient. I reviewed the resident's note and discussed the case with the resident. I agree with the resident's findings and plan as documented. SUBJECTIVE: Pt seen and examined in the ICU. Remains intubated, poorly responsive off sedation. Vented on volume assist with 80% FiO2. OBJECTIVE: Vital Signs Period Temp Pulse Resp BP Sys/Linares Pulse Ox Last 24 Hr 99.5 F-102.8 F 90-146 11-52 99-152/38-74 94-100 Intake & Output 05/30/19 05/31/19 06/01/19 06/02/19 23:59 23:59 23:59 23:59 Intake Total 600 293 Output Total 90 Balance 510 293 Weight 34.473 kg 40.37 kg Gen: intubated, poorly responsive Heart: RRR Lung: bilateral rhonchi Abd: soft, nontender Ext: no edema CBC, BMP 06/02/19 05:45 06/02/19 05:45 Active Medications Acetaminophen (Ofirmev Injection -) 750 mg IVPB Q8H PRN PRN Reason: FEVER Acyclovir (Zovirax Oral Suspension -) 400 mg GT BID [facility] Last Admin: 06/02/19 11:50 Dose: 400 mg Albuterol/Ipratropium (Duoneb -) 1 amp NEB QID PRN PRN Reason: WHEEZING Bacitracin (Bacitracin -) 1 applic TP BID [facility] Last Admin: 06/02/19 09:48 Dose: 1 applic Baclofen (Lioresal -) 10 mg GT BID [facility] Last Admin: 06/02/19 11:37 Dose: 10 mg Budesonide (Pulmicort 0.25 Mg Nebulizer -) 1 amp NEB RBID [facility] Last Admin: 06/02/19 11:47 Dose: 1 amp Clobazam (Onfi -) 10 mg GT HS [facility] Clobazam (Onfi -) 5 mg GT DAILY [facility] Last Admin: 06/02/19 09:31 Dose: 5 mg Clonazepam (Klonopin -) 1.5 mg GT TID [facility] Last Admin: 06/02/19 06:15 Dose: 1.5 mg Diazepam (Diastat Rectal Gel -) 7.5 mg RC PRN PRN PRN Reason: <Seizures> Famotidine (Pepcid) 10 mg NR BID [facility] Last Admin: 06/02/19 11:51 Dose: 10 mg Fluticasone Propionate (Flonase -) 2 spray NS AM [facility] Last Admin: 06/02/19 06:20 Dose: 2 sprays Heparin Sodium (Porcine) (Heparin -) 5,000 unit SQ BID [facility] Last Admin: 06/02/19 09:35 Dose: 5,000 unit Fentanyl 500 mcg/ Dextrose 100 mls @ 5 mls/hr IVPB TITR [facility]OR[facility] Stop: 06/03/19 01:29 Last Admin: 06/02/19 09:47 Dose: 50 mcg/hr, 10 mls/hr Propofol (Diprivan -) 1,000,000 mcg in 100 mls @ 1.034 mls/hr IVPB TITR JORGE; Protocol Last Admin: 06/02/19 03:21 Dose: 5 mcg/kg/min, 1.034 mls/hr Sodium Chloride (Normal Saline -) 1,000 mls @ 100 mls/hr IV ASDIR [facility] Last Admin: 06/02/19 06:15 Dose: 100 mls/hr Vancomycin HCl (Vancomycin (Pre-Docked)) 1,000 mg in 250 mls @ 250 mls/hr IVPB Q12H [facility] Stop: 06/02/19 12:59 Last Admin: 06/02/19 11:46 Dose: 250 mls/hr Piperacillin Sod/Tazobactam (Sod 3.375 gm/ Dextrose) 50 mls @ 100 mls/hr IVPB Q8H-IV [facility]; Protocol Lactobacillus Acidophilus (Bacid -) 1 tab GT DAILY [facility] Last Admin: 06/02/19 09:25 Dose: 1 tab Lamotrigine (Lamictal -) 200 mg PO BID [facility] Last Admin: 06/02/19 11:37 Dose: 200 mg Magnesium Hydroxide (Milk Of Magnesia -) 20 ml GT BID [facility] Last Admin: 06/02/19 09:25 Dose: 20 ml Methylprednisolone Sodium Succinate (Solu-Medrol -) 40 mg IVPUSH Q8H-IV [facility] Last Admin: 06/02/19 09:24 Dose: 40 mg Multivitamins/Minerals (Certavite-Antioxidant Liquid) 15 ml GT DAILY [facility] Last Admin: 06/02/19 11:37 Dose: 15 ml Non-Formulary Medication (Sodium Chloride/Aloe Vera [[place] Saline Nasal Gel [place]] ) 22 ml NS BID [facility] Oseltamivir Phosphate (Tamiflu -) 75 mg PEG BID [facility] Stop: 06/07/19 03:14 Last Admin: 06/02/19 09:25 Dose: 75 mg Pantoprazole Sodium (Protonix Iv) 40 mg IVPUSH DAILY [facility] Last Admin: 06/02/19 09:24 Dose: 40 mg Phenobarbital (Phenobarbital Liquid -) 48.6 mg GT BID [facility] Last Admin: 06/02/19 11:38 Dose: 48.6 mg ASSESSMENT AND PLAN: Acute Hypoxic Respiratory Failure Influenza A Pneumonia Sepsis Lactic Acidosis Cerebral Palsy Mental Retardation Seizure Disorder GERD - continue tamiflu, antibiotics - f/u cultures - taper Fio2 to keep SpO2 >90% - empiric medrol - inhaled bronchodilators - IVF - monitor urine output, creatinine - spontaneous breathing trials as tolerated when oxygen requirements lessen - DVT/GI prophylaxis - continue ICU monitoring critical care time spent in reviewing chart, evaluating patient and formulating plan 35 min
--- NOTE | 2019-06-02 13:19 | PN ---
Physical Exam: SUBJECTIVE: Patient seen and examined. Patient intubated a sedated. OBJECTIVE: Vital Signs Period Temp Pulse Resp BP Sys/Linares Pulse Ox Last 24 Hr 99.5 F-102.8 F 90-146 11-52 99-152/38-74 94-100 GENERAL: intubated, sedated HEAD: Normal with no signs of trauma. EYES: PERRL, no scleral icterus ENT: dry mucous membranes, ET tube in place NECK: Trachea midline, full range of motion, supple. LUNGS: coarse breath sounds bilaterally, mechanically ventilated HEART: tachycardic ABDOMEN: soft, NT, ND, no guarding EXTREMITIES: 2+ pulses, warm, well-perfused, no edema. contracted upper and lower extremities NEUROLOGICAL: normal gag reflex PSYCH: Normal mood, normal affect. SKIN: Warm, dry, normal turgor Laboratory Results - last 24 hr 06/01/19 06/01/19 06/01/19 19:30 19:30 19:30 WBC 13.6 H RBC 5.08 Hgb 17.4 H Hct 51.1 H D MCV 100.6 H MCH 34.2 H MCHC 34.0 RDW 13.5 D Plt Count 225 D MPV 10.4 D Absolute Neuts (auto) 11.9 H Neutrophils % 87.3 H D Neutrophils % (Manual) Band Neutrophils % Lymphocytes % 6.3 L D Lymphocytes % (Manual) Monocytes % 6.0 Monocytes % (Manual) Eosinophils % 0.1 D Eosinophils % (Manual) Basophils % 0.3 Basophils % (Manual) Myelocytes % (Man) Promyelocytes % (Man) Blast Cells % (Manual) Nucleated RBC % 0 Metamyelocytes Hypochromia Platelet Estimate Polychromasia Poikilocytosis Anisocytosis Microcytosis Macrocytosis PT with INR 13.80 H INR 1.17 H PTT (Actin FS) 37.5 H Anticoagulation Therapy Puncture Site ABG pH ABG pCO2 at Pt Temp ABG pO2 at Pt Temp ABG HCO3 ABG O2 Sat (Measured) ABG O2 Content ABG Base Excess K[place] Test VBG pH POC VBG pCO2 POC VBG pO2 VBG HCO3 VBG O2 Sat (Renzo) VBG Base Excess O2 Delivery Device Oxygen Flow Rate Vent Mode Vent Rate Mechanical Rate PEEP Pressure Support Vent Sodium Potassium Chloride Carbon Dioxide Anion Gap BUN Creatinine Est GFR (CKD-EPI)AfAm Est GFR (CKD-EPI)NonAf Random Glucose Lactic Acid Calcium Magnesium Total Bilirubin AST ALT Alkaline Phosphatase Troponin I < 0.02 B-Natriuretic Peptide Total Protein Albumin Urine Color Urine Appearance Urine pH Ur Specific [place] Urine Protein Urine Glucose (UA) Urine Ketones Urine Blood Urine Nitrite Urine Bilirubin Urine Urobilinogen Ur Leukocyte Esterase Influenza A (Rapid) Influenza B (Rapid) Blood Type Antibody Screen 06/01/19 06/01/19 06/01/19 19:30 19:30 19:30 WBC RBC Hgb Hct MCV MCH MCHC RDW Plt Count MPV Absolute Neuts (auto) Neutrophils % Neutrophils % (Manual) Band Neutrophils % Lymphocytes % Lymphocytes % (Manual) Monocytes % Monocytes % (Manual) Eosinophils % Eosinophils % (Manual) Basophils % Basophils % (Manual) Myelocytes % (Man) Promyelocytes % (Man) Blast Cells % (Manual) Nucleated RBC % Metamyelocytes Hypochromia Platelet Estimate Polychromasia Poikilocytosis Anisocytosis Microcytosis Macrocytosis PT with INR INR PTT (Actin FS) Anticoagulation Therapy Puncture Site ABG pH ABG pCO2 at Pt Temp ABG pO2 at Pt Temp ABG HCO3 ABG O2 Sat (Measured) ABG O2 Content ABG Base Excess [place] Test VBG pH POC VBG pCO2 POC VBG pO2 VBG HCO3 VBG O2 Sat (Renzo) VBG Base Excess O2 Delivery Device Oxygen Flow Rate Vent Mode Vent Rate Mechanical Rate PEEP Pressure Support Vent Sodium 136 Potassium 3.7 Chloride 100 Carbon Dioxide 29 Anion Gap 7 L BUN 15.7 Creatinine 0.9 Est GFR (CKD-EPI)AfAm 139.04 Est GFR (CKD-EPI)NonAf 119.96 Random Glucose 77 Lactic Acid 2.7 H* Calcium 9.4 Magnesium Total Bilirubin 0.3 AST 41 H ALT 53 Alkaline Phosphatase 259 H Troponin I B-Natriuretic Peptide Total Protein 9.8 H Albumin 4.6 Urine Color Urine Appearance Urine pH Ur Specific [place] Urine Protein Urine Glucose (UA) Urine Ketones Urine Blood Urine Nitrite Urine Bilirubin Urine Urobilinogen Ur Leukocyte Esterase Influenza A (Rapid) Positive A Influenza B (Rapid) Negative Blood Type Antibody Screen 06/01/19 06/01/19 06/01/19 19:30 19:30 19:30 WBC RBC Hgb Hct MCV MCH MCHC RDW Plt Count MPV Absolute Neuts (auto) Neutrophils % Neutrophils % (Manual) Band Neutrophils % Lymphocytes % Lymphocytes % (Manual) Monocytes % Monocytes % (Manual) Eosinophils % Eosinophils % (Manual) Basophils % Basophils % (Manual) Myelocytes % (Man) Promyelocytes % (Man) Blast Cells % (Manual) Nucleated RBC % Metamyelocytes Hypochromia Platelet Estimate Polychromasia Poikilocytosis Anisocytosis Microcytosis Macrocytosis PT with INR INR PTT (Actin FS) Anticoagulation Therapy Puncture Site ABG pH ABG pCO2 at Pt Temp ABG pO2 at Pt Temp ABG HCO3 ABG O2 Sat (Measured) ABG O2 Content ABG Base Excess Kaushal Test VBG pH 7.35 POC VBG pCO2 55.3 H POC VBG pO2 < 49 H VBG HCO3 29.9 H VBG O2 Sat (Renzo) 57.4 L VBG Base Excess 3.0 H O2 Delivery Device Oxygen Flow Rate Vent Mode Vent Rate Mechanical Rate PEEP Pressure Support Vent Sodium Potassium Chloride Carbon Dioxide Anion Gap BUN Creatinine Est GFR (CKD-EPI)AfAm Est GFR (CKD-EPI)NonAf Random Glucose Lactic Acid Calcium Magnesium Total Bilirubin AST ALT Alkaline Phosphatase Troponin I B-Natriuretic Peptide Total Protein Albumin Urine Color Yellow Urine Appearance Clear Urine pH 7.5 Ur Specific [place] 1.026 Urine Protein Trace Urine Glucose (UA) Negative Urine Ketones Negative Urine Blood Negative Urine Nitrite Negative Urine Bilirubin Negative Urine Urobilinogen 0.2 Ur Leukocyte Esterase Negative Influenza A (Rapid) Influenza B (Rapid) Blood Type O POSITIVE Antibody Screen Negative 06/02/19 06/02/19 06/02/19 03:03 04:23 05:20 WBC RBC Hgb Hct MCV MCH MCHC RDW Plt Count MPV Absolute Neuts (auto) Neutrophils % Neutrophils % (Manual) Band Neutrophils % Lymphocytes % Lymphocytes % (Manual) Monocytes % Monocytes % (Manual) Eosinophils % Eosinophils % (Manual) Basophils % Basophils % (Manual) Myelocytes % (Man) Promyelocytes % (Man) Blast Cells % (Manual) Nucleated RBC % Metamyelocytes Hypochromia Platelet Estimate Polychromasia Poikilocytosis Anisocytosis Microcytosis Macrocytosis PT with INR INR PTT (Actin FS) Anticoagulation Therapy No Result Required. Puncture Site Left radial ABG pH 7.40 ABG pCO2 at Pt Temp 44.3 ABG pO2 at Pt Temp 111 H ABG HCO3 27.1 H ABG O2 Sat (Measured) 98.0 ABG O2 Content 21.3 ABG Base Excess 2.4 H Kaushal Test Positive VBG pH POC VBG pCO2 POC VBG pO2 VBG HCO3 VBG O2 Sat (Renzo) VBG Base Excess O2 Delivery Device Mech vent Oxygen Flow Rate 100 Vent Mode A/c Vent Rate 14 Mechanical Rate No Result Required. PEEP 5.0 Pressure Support Vent 350 Sodium Potassium Chloride Carbon Dioxide Anion Gap BUN Creatinine Est GFR (CKD-EPI)AfAm Est GFR (CKD-EPI)NonAf Random Glucose Lactic Acid 1.5 Calcium Magnesium Cancelled Total Bilirubin AST ALT Alkaline Phosphatase Troponin I B-Natriuretic Peptide Total Protein Albumin Urine Color Urine Appearance Urine pH Ur Specific [place] Urine Protein Urine Glucose (UA) Urine Ketones Urine Blood Urine Nitrite Urine Bilirubin Urine Urobilinogen Ur Leukocyte Esterase Influenza A (Rapid) Influenza B (Rapid) Blood Type Antibody Screen 06/02/19 06/02/19 06/02/19 05:45 05:45 05:45 WBC 10.0 RBC 4.25 Hgb 14.7 Hct 42.3 D MCV 99.4 H MCH 34.7 H MCHC 34.9 RDW 13.2 Plt Count 150 D MPV 10.8 Absolute Neuts (auto) 9.3 H Neutrophils % No Result Required. Neutrophils % (Manual) 52.5 D Band Neutrophils % 30.3 Lymphocytes % No Result Required. Lymphocytes % (Manual) 4.1 L D Monocytes % Monocytes % (Manual) 4 Eosinophils % Eosinophils % (Manual) 0.0 D Basophils % Basophils % (Manual) 0.0 Myelocytes % (Man) 0 Promyelocytes % (Man) 0 Blast Cells % (Manual) 0 Nucleated RBC % 0 Metamyelocytes 7 H D Hypochromia 0 Platelet Estimate Decreased Polychromasia 0 Poikilocytosis 0 Anisocytosis 0 Microcytosis 0 Macrocytosis 0 PT with INR 15.00 H INR 1.27 H PTT (Actin FS) Anticoagulation Therapy Puncture Site ABG pH ABG pCO2 at Pt Temp ABG pO2 at Pt Temp ABG HCO3 ABG O2 Sat (Measured) ABG O2 Content ABG Base Excess K[place] Test VBG pH POC VBG pCO2 POC VBG pO2 VBG HCO3 VBG O2 Sat (Renzo) VBG Base Excess O2 Delivery Device Oxygen Flow Rate Vent Mode Vent Rate Mechanical Rate PEEP Pressure Support Vent Sodium 135 L Potassium 3.9 Chloride 101 Carbon Dioxide 26 Anion Gap 9 BUN 11.9 Creatinine 0.9 Est GFR (CKD-EPI)AfAm 139.04 Est GFR (CKD-EPI)NonAf 119.96 Random Glucose 96 Lactic Acid Calcium 8.8 Magnesium 2.2 Total Bilirubin 0.9 AST 67 H ALT 56 Alkaline Phosphatase 186 H Troponin I B-Natriuretic Peptide 449.0 H Total Protein 7.7 Albumin 3.4 Urine Color Urine Appearance Urine pH Ur Specific [place] Urine Protein Urine Glucose (UA) Urine Ketones Urine Blood Urine Nitrite Urine Bilirubin Urine Urobilinogen Ur Leukocyte Esterase Influenza A (Rapid) Influenza B (Rapid) Blood Type Antibody Screen 06/02/19 05:45 WBC RBC Hgb Hct MCV MCH MCHC RDW Plt Count MPV Absolute Neuts (auto) Neutrophils % Neutrophils % (Manual) Band Neutrophils % Lymphocytes % Lymphocytes % (Manual) Monocytes % Monocytes % (Manual) Eosinophils % Eosinophils % (Manual) Basophils % Basophils % (Manual) Myelocytes % (Man) Promyelocytes % (Man) Blast Cells % (Manual) Nucleated RBC % Metamyelocytes Hypochromia Platelet Estimate Polychromasia Poikilocytosis Anisocytosis Microcytosis Macrocytosis PT with INR INR PTT (Actin FS) Anticoagulation Therapy Puncture Site ABG pH ABG pCO2 at Pt Temp ABG pO2 at Pt Temp ABG HCO3 ABG O2 Sat (Measured) ABG O2 Content ABG Base Excess [place] Test VBG pH POC VBG pCO2 POC VBG pO2 VBG HCO3 VBG O2 Sat (Renzo) VBG Base Excess O2 Delivery Device Oxygen Flow Rate Vent Mode Vent Rate Mechanical Rate PEEP Pressure Support Vent Sodium Potassium Chloride Carbon Dioxide Anion Gap BUN Creatinine Est GFR (CKD-EPI)AfAm Est GFR (CKD-EPI)NonAf Random Glucose Lactic Acid Cancelled Calcium Magnesium Total Bilirubin AST ALT Alkaline Phosphatase Troponin I B-Natriuretic Peptide Total Protein Albumin Urine Color Urine Appearance Urine pH Ur Specific [place] Urine Protein Urine Glucose (UA) Urine Ketones Urine Blood Urine Nitrite Urine Bilirubin Urine Urobilinogen Ur Leukocyte Esterase Influenza A (Rapid) Influenza B (Rapid) Blood Type Antibody Screen Active Medications Generic Name Dose Route Start Last Admin Trade Name Freq PRN Reason Stop Dose Admin Acetaminophen 750 mg 06/02/19 00:32 Ofirmev Injection - IVPB Q8H PRN FEVER Acyclovir 400 mg 06/02/19 10:00 06/02/19 11:50 Zovirax Oral Suspension - GT 400 mg BID [facility] Administration Albuterol/Ipratropium 1 amp 06/02/19 00:23 Duoneb - NEB QID PRN WHEEZING Bacitracin 1 applic 06/02/19 10:00 06/02/19 09:48 Bacitracin - TP 1 applic BID [facility] Administration Baclofen 10 mg 06/02/19 10:00 06/02/19 11:37 Lioresal - GT 10 mg BID [facility] Administration Budesonide 1 amp 06/02/19 08:00 06/02/19 11:47 Pulmicort 0.25 Mg Nebulizer - NEB 1 amp RBID [facility] Administration Clobazam 10 mg 06/02/19 22:00 Onfi - GT HS [facility] Clobazam 5 mg 06/02/19 10:00 06/02/19 09:31 Onfi - GT 5 mg DAILY [facility] Administration Clonazepam 1.5 mg 06/02/19 06:15 06/02/19 06:15 Klonopin - GT 1.5 mg TID [facility] Administration Diazepam 7.5 mg 06/02/19 00:23 Diastat Rectal Gel - RC PRN PRN <Seizures> Famotidine 10 mg 06/02/19 10:00 06/02/19 11:51 Pepcid NR 10 mg BID [facility] Administration Fluticasone Propionate 2 spray 06/02/19 07:00 06/02/19 06:20 Flonase - NS 2 sprays AM [facility] Administration Heparin Sodium (Porcine) 5,000 unit 06/02/19 10:00 06/02/19 09:35 Heparin - SQ 5,000 unit BID [facility] Administration Fentanyl 500 mcg/ Dextrose 100 mls @ 5 mls/hr 06/02/19 01:30 06/02/19 09:47 IVPB 06/03/19 01:29 50 mcg/hr TITR JORGE 10 mls/hr Administration 25 MCG/HR Propofol 1,000,000 mcg in 100 mls @ 1.034 mls/hr 06/02/19 02:15 06/02/19 03: 21 Diprivan - IVPB 5 mcg/kg/min TITR JORGE 1.034 mls/hr Administration Protocol 5 MCG/KG/MIN Sodium Chloride 1,000 mls @ 100 mls/hr 06/02/19 05:45 06/02/19 06:15 Normal Saline - IV 100 mls/hr ASDIR JORGE Administration Vancomycin HCl 1,000 mg in 250 mls @ 250 mls/hr 06/02/19 12:00 06/02/19 11:46 Vancomycin (Pre-Docked) IVPB 06/02/19 12:59 250 mls/hr Q12H [facility] Administration Piperacillin Sod/Tazobactam 50 mls @ 100 mls/hr 06/02/19 18:00 Sod 3.375 gm/ Dextrose IVPB Q8H-IV [facility] Protocol Lactobacillus Acidophilus 1 tab 06/02/19 10:00 06/02/19 09:25 Bacid - GT 1 tab DAILY [facility] Administration Lamotrigine 200 mg 06/02/19 10:00 06/02/19 11:37 Lamictal - PO 200 mg BID [facility] Administration Magnesium Hydroxide 20 ml 06/02/19 10:00 06/02/19 09:25 Milk Of Magnesia - GT 20 ml BID [facility] Administration Methylprednisolone Sodium Succinate 40 mg 06/02/19 02:45 06/02/19 09:24 Solu-Medrol - IVPUSH 40 mg Q8H-IV [facility] Administration Multivitamins/Minerals 15 ml 06/02/19 10:00 06/02/19 11:37 Certavite-Antioxidant Liquid GT 15 ml DAILY [facility] Administration Non-Formulary Medication 22 ml 06/02/19 10:00 Sodium Chloride/Aloe Vera [[place] Saline Nasal Gel [place]] NS BID [facility] Oseltamivir Phosphate 75 mg 06/02/19 03:15 06/02/19 09:25 Tamiflu - PEG 06/07/19 03:14 75 mg BID [facility] Administration Pantoprazole Sodium 40 mg 06/02/19 02:45 06/02/19 09:24 Protonix Iv IVPUSH 40 mg DAILY [facility] Administration Phenobarbital 48.6 mg 06/02/19 10:00 06/02/19 11:38 Phenobarbital Liquid - GT 48.6 mg BID [facility] Administration ASSESSMENT/PLAN: 24 y/o/m [place] resident with PMHx significant of CP, epilepsy, herpes encephalitis, GERD, and aspiration pneumonia. He was sent to the ER after he developed a non productive cough and was noticed to be warm to the touch, crying frequently, and short of breath. Was admitted for management of sepsis 2/ 2 pneumonia. #Sepsis 2/2 Pneumonia and Influenza - left basilar retrocardiac infiltrate noted on repeat CXR - WBC resolving - Influenza A positive, continue Tamiflu 75mg BID via PEG - Lactic acid normalized - Blood, urine cx, urine for Strep/Legionella negative to date - Vanc/Zosyn given in ED - Continue Zosyn - ID consulted (Dr. Rosenthal) #Hypoxic respiratory distress - Respiratory distress likely 2/2 to pneumonia - Intubated, sedated on Fentanyl and Propofol - repeat ABG with improvement -> pH 7.4, pO2 111, PCO2 44.3 - ABGs on 100% FiO2: pH 7.4, O2 111, CO2 44.3, HCO3 27.1 - CTA negative for PE, showing almost complete atelectasis of left lung - Continue home Pulmicort nebs #Hx of seizures - Currently asymptomatic - Will continue home meds #Polycythemia - H&H 17.4/51.1 on admission, baseline seems to be around 13/40 as per previous records, may be relative due to stress - repeat CBC showing improvement, now 14.7/42.3 #Transaminitis with elevated ALP - Patient has had elevated liver enzymes upon previous admissions - Likely 2/2 to medication side effect, will continue to monitor #Hx of herpes encephalitis - Continue acyclovir 400 BID #DVT ppx - Heparin SQ #FEN - NS @100mls/hr - Resume tube feeds through PEG #Dispo - continue ICU monitoring, weaning trials as appropriate Visit type - Emergency Visit Emergency Visit: Yes ED Registration Date: 06/01/19 Care time: The patient presented to the Emergency Department on the above date and was hospitalized for further evaluation of their emergent condition. - New Patient This patient is new to me today: Yes Date on this admission: 06/02/19 - Critical Care Critical Care patient: No ATTENDING PHYSICIAN STATEMENT I saw and evaluated the patient. I reviewed the resident's note and discussed the case with the resident. I agree with the resident's findings and plan as documented. SUBJECTIVE: OBJECTIVE: ASSESSMENT AND PLAN:
[2019-06-02] MEDS ORDERED: VANCOMYCIN 1,000 MG in DEXTROSE 5%-WATER - 250 ML IVPB SCH (14:00)
[2019-06-02] MEDS: ACETAMINOPHEN 650 MG/20.3 ML ORAL SOLUTION (CUPS) GT PRN ×2 (15:00→21:20)
--- NOTE | 2019-06-02 15:11 | EKG ---
Test Reason : Blood Pressure : / mmHG Vent. Rate : 128 BPM Atrial Rate : 128 BPM P-R Int : 150 ms QRS Dur : 098 ms QT Int : 302 ms P-R-T Axes : 056 139 026 degrees QTc Int : 440 ms SINUS TACHYCARDIA POSSIBLE RIGHT VENTRICULAR HYPERTROPHY POSSIBLE LATERAL INFARCT (CITED ON OR BEFORE 05-FEB-2019) INFERIOR INFARCT (CITED ON OR BEFORE 26-JUN-2016) ABNORMAL ECG WHEN COMPARED WITH ECG OF 05-FEB-2019 21:07, VENT. RATE HAS INCREASED BY 60 BPM RIGHT BUNDLE BRANCH BLOCK IS NO LONGER PRESENT QUESTIONABLE CHANGE IN INITIAL FORCES OF ANTEROLATERAL LEADS Confirmed by CLEVE WALDROP MD ([id number]) on 06/02/2019 3:11:20 PM Referred By: Confirmed By:CLEVE WALDROP MD
--- NOTE | 2019-06-02 17:30 | PN ---
Physical Exam: SUBJECTIVE: Patient seen and examined in the morning. Patient was admitted overnight to the ICU. Patient is sedated and intubated, unable to respond. OBJECTIVE: Vital Signs Period Temp Pulse Resp BP Sys/Linares Pulse Ox Last 24 Hr 99.5 F-102.8 F 90-146 11-52 99-152/38-74 94-100 GENERAL: The patient is sedated. EYES: PERRLA ENT:ET Tube in place. LUNGS: Crackles in the right lobe. HEART: Regular rate and rhythm, S1, S2 without murmur, rub or gallop. ABDOMEN: Soft, nontender, nondistended, normoactive bowel sounds, no guarding. PEG tube in place, no erythema or drainage around site. EXTREMITIES: 2+ pulses, warm, well-perfused, no edema. Contracted. SKIN: Warm, dry, normal turgor, no rashes or lesions noted Laboratory Results - last 24 hr 06/01/19 06/01/19 06/01/19 19:30 19:30 19:30 WBC 13.6 H RBC 5.08 Hgb 17.4 H Hct 51.1 H D MCV 100.6 H MCH 34.2 H MCHC 34.0 RDW 13.5 D Plt Count 225 D MPV 10.4 D Absolute Neuts (auto) 11.9 H Neutrophils % 87.3 H D Neutrophils % (Manual) Band Neutrophils % Lymphocytes % 6.3 L D Lymphocytes % (Manual) Monocytes % 6.0 Monocytes % (Manual) Eosinophils % 0.1 D Eosinophils % (Manual) Basophils % 0.3 Basophils % (Manual) Myelocytes % (Man) Promyelocytes % (Man) Blast Cells % (Manual) Nucleated RBC % 0 Metamyelocytes Hypochromia Platelet Estimate Polychromasia Poikilocytosis Anisocytosis Microcytosis Macrocytosis PT with INR 13.80 H INR 1.17 H PTT (Actin FS) 37.5 H Anticoagulation Therapy Puncture Site ABG pH ABG pCO2 at Pt Temp ABG pO2 at Pt Temp ABG HCO3 ABG O2 Sat (Measured) ABG O2 Content ABG Base Excess Kaushal Test VBG pH POC VBG pCO2 POC VBG pO2 VBG HCO3 VBG O2 Sat (Renzo) VBG Base Excess O2 Delivery Device Oxygen Flow Rate Vent Mode Vent Rate Mechanical Rate PEEP Pressure Support Vent Sodium Potassium Chloride Carbon Dioxide Anion Gap BUN Creatinine Est GFR (CKD-EPI)AfAm Est GFR (CKD-EPI)NonAf POC Glucometer Random Glucose Lactic Acid Calcium Magnesium Total Bilirubin AST ALT Alkaline Phosphatase Troponin I < 0.02 B-Natriuretic Peptide Total Protein Albumin Urine Color Urine Appearance Urine pH Ur Specific Springer Urine Protein Urine Glucose (UA) Urine Ketones Urine Blood Urine Nitrite Urine Bilirubin Urine Urobilinogen Ur Leukocyte Esterase Influenza A (Rapid) Influenza B (Rapid) Blood Type Antibody Screen 06/01/19 06/01/19 06/01/19 19:30 19:30 19:30 WBC RBC Hgb Hct MCV MCH MCHC RDW Plt Count MPV Absolute Neuts (auto) Neutrophils % Neutrophils % (Manual) Band Neutrophils % Lymphocytes % Lymphocytes % (Manual) Monocytes % Monocytes % (Manual) Eosinophils % Eosinophils % (Manual) Basophils % Basophils % (Manual) Myelocytes % (Man) Promyelocytes % (Man) Blast Cells % (Manual) Nucleated RBC % Metamyelocytes Hypochromia Platelet Estimate Polychromasia Poikilocytosis Anisocytosis Microcytosis Macrocytosis PT with INR INR PTT (Actin FS) Anticoagulation Therapy Puncture Site ABG pH ABG pCO2 at Pt Temp ABG pO2 at Pt Temp ABG HCO3 ABG O2 Sat (Measured) ABG O2 Content ABG Base Excess Kaushal Test VBG pH POC VBG pCO2 POC VBG pO2 VBG HCO3 VBG O2 Sat (Renzo) VBG Base Excess O2 Delivery Device Oxygen Flow Rate Vent Mode Vent Rate Mechanical Rate PEEP Pressure Support Vent Sodium 136 Potassium 3.7 Chloride 100 Carbon Dioxide 29 Anion Gap 7 L BUN 15.7 Creatinine 0.9 Est GFR (CKD-EPI)AfAm 139.04 Est GFR (CKD-EPI)NonAf 119.96 POC Glucometer Random Glucose 77 Lactic Acid 2.7 H* Calcium 9.4 Magnesium Total Bilirubin 0.3 AST 41 H ALT 53 Alkaline Phosphatase 259 H Troponin I B-Natriuretic Peptide Total Protein 9.8 H Albumin 4.6 Urine Color Urine Appearance Urine pH Ur Specific Springer Urine Protein Urine Glucose (UA) Urine Ketones Urine Blood Urine Nitrite Urine Bilirubin Urine Urobilinogen Ur Leukocyte Esterase Influenza A (Rapid) Positive A Influenza B (Rapid) Negative Blood Type Antibody Screen 06/01/19 06/01/19 06/01/19 19:30 19:30 19:30 WBC RBC Hgb Hct MCV MCH MCHC RDW Plt Count MPV Absolute Neuts (auto) Neutrophils % Neutrophils % (Manual) Band Neutrophils % Lymphocytes % Lymphocytes % (Manual) Monocytes % Monocytes % (Manual) Eosinophils % Eosinophils % (Manual) Basophils % Basophils % (Manual) Myelocytes % (Man) Promyelocytes % (Man) Blast Cells % (Manual) Nucleated RBC % Metamyelocytes Hypochromia Platelet Estimate Polychromasia Poikilocytosis Anisocytosis Microcytosis Macrocytosis PT with INR INR PTT (Actin FS) Anticoagulation Therapy Puncture Site ABG pH ABG pCO2 at Pt Temp ABG pO2 at Pt Temp ABG HCO3 ABG O2 Sat (Measured) ABG O2 Content ABG Base Excess Kaushal Test VBG pH 7.35 POC VBG pCO2 55.3 H POC VBG pO2 < 49 H VBG HCO3 29.9 H VBG O2 Sat (Renzo) 57.4 L VBG Base Excess 3.0 H O2 Delivery Device Oxygen Flow Rate Vent Mode Vent Rate Mechanical Rate PEEP Pressure Support Vent Sodium Potassium Chloride Carbon Dioxide Anion Gap BUN Creatinine Est GFR (CKD-EPI)AfAm Est GFR (CKD-EPI)NonAf POC Glucometer Random Glucose Lactic Acid Calcium Magnesium Total Bilirubin AST ALT Alkaline Phosphatase Troponin I B-Natriuretic Peptide Total Protein Albumin Urine Color Yellow Urine Appearance Clear Urine pH 7.5 Ur Specific Springer 1.026 Urine Protein Trace Urine Glucose (UA) Negative Urine Ketones Negative Urine Blood Negative Urine Nitrite Negative Urine Bilirubin Negative Urine Urobilinogen 0.2 Ur Leukocyte Esterase Negative Influenza A (Rapid) Influenza B (Rapid) Blood Type O POSITIVE Antibody Screen Negative 06/02/19 06/02/19 06/02/19 03:03 04:23 05:20 WBC RBC Hgb Hct MCV MCH MCHC RDW Plt Count MPV Absolute Neuts (auto) Neutrophils % Neutrophils % (Manual) Band Neutrophils % Lymphocytes % Lymphocytes % (Manual) Monocytes % Monocytes % (Manual) Eosinophils % Eosinophils % (Manual) Basophils % Basophils % (Manual) Myelocytes % (Man) Promyelocytes % (Man) Blast Cells % (Manual) Nucleated RBC % Metamyelocytes Hypochromia Platelet Estimate Polychromasia Poikilocytosis Anisocytosis Microcytosis Macrocytosis PT with INR INR PTT (Actin FS) Anticoagulation Therapy No Result Required. Puncture Site Left radial ABG pH 7.40 ABG pCO2 at Pt Temp 44.3 ABG pO2 at Pt Temp 111 H ABG HCO3 27.1 H ABG O2 Sat (Measured) 98.0 ABG O2 Content 21.3 ABG Base Excess 2.4 H Kaushal Test Positive VBG pH POC VBG pCO2 POC VBG pO2 VBG HCO3 VBG O2 Sat (Renzo) VBG Base Excess O2 Delivery Device Mech vent Oxygen Flow Rate 100 Vent Mode A/c Vent Rate 14 Mechanical Rate No Result Required. PEEP 5.0 Pressure Support Vent 350 Sodium Potassium Chloride Carbon Dioxide Anion Gap BUN Creatinine Est GFR (CKD-EPI)AfAm Est GFR (CKD-EPI)NonAf POC Glucometer Random Glucose Lactic Acid 1.5 Calcium Magnesium Cancelled Total Bilirubin AST ALT Alkaline Phosphatase Troponin I B-Natriuretic Peptide Total Protein Albumin Urine Color Urine Appearance Urine pH Ur Specific Springer Urine Protein Urine Glucose (UA) Urine Ketones Urine Blood Urine Nitrite Urine Bilirubin Urine Urobilinogen Ur Leukocyte Esterase Influenza A (Rapid) Influenza B (Rapid) Blood Type Antibody Screen 06/02/19 06/02/19 06/02/19 05:45 05:45 05:45 WBC 10.0 RBC 4.25 Hgb 14.7 Hct 42.3 D MCV 99.4 H MCH 34.7 H MCHC 34.9 RDW 13.2 Plt Count 150 D MPV 10.8 Absolute Neuts (auto) 9.3 H Neutrophils % No Result Required. Neutrophils % (Manual) 52.5 D Band Neutrophils % 30.3 Lymphocytes % No Result Required. Lymphocytes % (Manual) 4.1 L D Monocytes % Monocytes % (Manual) 4 Eosinophils % Eosinophils % (Manual) 0.0 D Basophils % Basophils % (Manual) 0.0 Myelocytes % (Man) 0 Promyelocytes % (Man) 0 Blast Cells % (Manual) 0 Nucleated RBC % 0 Metamyelocytes 7 H D Hypochromia 0 Platelet Estimate Decreased Polychromasia 0 Poikilocytosis 0 Anisocytosis 0 Microcytosis 0 Macrocytosis 0 PT with INR 15.00 H INR 1.27 H PTT (Actin FS) Anticoagulation Therapy Puncture Site ABG pH ABG pCO2 at Pt Temp ABG pO2 at Pt Temp ABG HCO3 ABG O2 Sat (Measured) ABG O2 Content ABG Base Excess Kaushal Test VBG pH POC VBG pCO2 POC VBG pO2 VBG HCO3 VBG O2 Sat (Renzo) VBG Base Excess O2 Delivery Device Oxygen Flow Rate Vent Mode Vent Rate Mechanical Rate PEEP Pressure Support Vent Sodium 135 L Potassium 3.9 Chloride 101 Carbon Dioxide 26 Anion Gap 9 BUN 11.9 Creatinine 0.9 Est GFR (CKD-EPI)AfAm 139.04 Est GFR (CKD-EPI)NonAf 119.96 POC Glucometer Random Glucose 96 Lactic Acid Calcium 8.8 Magnesium 2.2 Total Bilirubin 0.9 AST 67 H ALT 56 Alkaline Phosphatase 186 H Troponin I B-Natriuretic Peptide 449.0 H Total Protein 7.7 Albumin 3.4 Urine Color Urine Appearance Urine pH Ur Specific Springer Urine Protein Urine Glucose (UA) Urine Ketones Urine Blood Urine Nitrite Urine Bilirubin Urine Urobilinogen Ur Leukocyte Esterase Influenza A (Rapid) Influenza B (Rapid) Blood Type Antibody Screen 06/02/19 06/02/19 05:45 12:52 WBC RBC Hgb Hct MCV MCH MCHC RDW Plt Count MPV Absolute Neuts (auto) Neutrophils % Neutrophils % (Manual) Band Neutrophils % Lymphocytes % Lymphocytes % (Manual) Monocytes % Monocytes % (Manual) Eosinophils % Eosinophils % (Manual) Basophils % Basophils % (Manual) Myelocytes % (Man) Promyelocytes % (Man) Blast Cells % (Manual) Nucleated RBC % Metamyelocytes Hypochromia Platelet Estimate Polychromasia Poikilocytosis Anisocytosis Microcytosis Macrocytosis PT with INR INR PTT (Actin FS) Anticoagulation Therapy Puncture Site ABG pH ABG pCO2 at Pt Temp ABG pO2 at Pt Temp ABG HCO3 ABG O2 Sat (Measured) ABG O2 Content ABG Base Excess Kaushal Test VBG pH POC VBG pCO2 POC VBG pO2 VBG HCO3 VBG O2 Sat (Renzo) VBG Base Excess O2 Delivery Device Oxygen Flow Rate Vent Mode Vent Rate Mechanical Rate PEEP Pressure Support Vent Sodium Potassium Chloride Carbon Dioxide Anion Gap BUN Creatinine Est GFR (CKD-EPI)AfAm Est GFR (CKD-EPI)NonAf POC Glucometer 207 Random Glucose Lactic Acid Cancelled Calcium Magnesium Total Bilirubin AST ALT Alkaline Phosphatase Troponin I B-Natriuretic Peptide Total Protein Albumin Urine Color Urine Appearance Urine pH Ur Specific Springer Urine Protein Urine Glucose (UA) Urine Ketones Urine Blood Urine Nitrite Urine Bilirubin Urine Urobilinogen Ur Leukocyte Esterase Influenza A (Rapid) Influenza B (Rapid) Blood Type Antibody Screen Active Medications Generic Name Dose Route Start Last Admin Trade Name Freq PRN Reason Stop Dose Admin Acetaminophen 750 mg 06/02/19 14:29 06/02/19 15:00 Tylenol Oral Solution - GT 750 mg Q8H PRN Administration FEVER Acyclovir 400 mg 06/02/19 10:00 06/02/19 11:50 Zovirax Oral Suspension - GT 400 mg BID JORGE Administration Albuterol/Ipratropium 1 amp 06/02/19 00:23 Duoneb - NEB QID PRN WHEEZING Bacitracin 1 applic 06/02/19 10:00 06/02/19 09:48 Bacitracin - TP 1 applic BID JORGE Administration Baclofen 10 mg 06/02/19 10:00 06/02/19 11:37 Lioresal - GT 10 mg BID JORGE Administration Budesonide 1 amp 06/02/19 08:00 06/02/19 11:47 Pulmicort 0.25 Mg Nebulizer - NEB 1 amp RBID JORGE Administration Clobazam 10 mg 06/02/19 22:00 Onfi - GT HS JORGE Clobazam 5 mg 06/02/19 10:00 06/02/19 09:31 Onfi - GT 5 mg DAILY JORGE Administration Clonazepam 1.5 mg 06/02/19 06:15 06/02/19 14:42 Klonopin - GT 1.5 mg TID JORGE Administration Diazepam 7.5 mg 06/02/19 00:23 Diastat Rectal Gel - RC PRN PRN <Seizures> Famotidine 10 mg 06/02/19 10:00 06/02/19 11:51 Pepcid NR 10 mg BID JORGE Administration Fluticasone Propionate 2 spray 06/02/19 07:00 06/02/19 06:20 Flonase - NS 2 sprays AM JORGE Administration Heparin Sodium (Porcine) 5,000 unit 06/02/19 10:00 06/02/19 09:35 Heparin - SQ 5,000 unit BID JORGE Administration Fentanyl 500 mcg/ Dextrose 100 mls @ 5 mls/hr 06/02/19 01:30 06/02/19 10:00 IVPB 06/03/19 01:29 0 mcg/hr TITR JORGE 0 mls/hr Titration 25 MCG/HR Propofol 1,000,000 mcg in 100 mls @ 1.034 mls/hr 06/02/19 02:15 06/02/19 10: 00 Diprivan - IVPB 0 mcg/kg/min TITR JORGE 0 mls/hr Titration Protocol 5 MCG/KG/MIN Sodium Chloride 1,000 mls @ 100 mls/hr 06/02/19 05:45 06/02/19 06:15 Normal Saline - IV 100 mls/hr ASDIR JORGE Administration Piperacillin Sod/Tazobactam 50 mls @ 100 mls/hr 06/02/19 18:00 Sod 3.375 gm/ Dextrose IVPB Q8H-IV JORGE Protocol Lactobacillus Acidophilus 1 tab 06/02/19 10:00 06/02/19 09:25 Bacid - GT 1 tab DAILY JORGE Administration Lamotrigine 200 mg 06/02/19 10:00 06/02/19 11:37 Lamictal - PO 200 mg BID JORGE Administration Magnesium Hydroxide 20 ml 06/02/19 10:00 06/02/19 09:25 Milk Of Magnesia - GT 20 ml BID JORGE Administration Methylprednisolone Sodium Succinate 40 mg 06/02/19 02:45 06/02/19 09:24 Solu-Medrol - IVPUSH 40 mg Q8H-IV JORGE Administration Multivitamins/Minerals 15 ml 06/02/19 10:00 06/02/19 11:37 Certavite-Antioxidant Liquid GT 15 ml DAILY JORGE Administration Non-Formulary Medication 22 ml 06/02/19 10:00 Sodium Chloride/Aloe Vera [[place] Saline Nasal Gel [place]] NS BID JORGE Oseltamivir Phosphate 75 mg 06/02/19 03:15 06/02/19 09:25 Tamiflu - PEG 06/07/19 03:14 75 mg BID JORGE Administration Pantoprazole Sodium 40 mg 06/02/19 02:45 06/02/19 09:24 Protonix Iv IVPUSH 40 mg DAILY JORGE Administration Phenobarbital 48.6 mg 06/02/19 10:00 06/02/19 11:38 Phenobarbital Liquid - GT 48.6 mg BID JORGE Administration ASSESSMENT/PLAN: 24 M PMH cerebral palsy, epilepsy, herpes encephalitis, severe MR, nonverbal at baseline, GERD, aspiration PNA , found to be Influenza A positive with worsening tachypnea and secretions leading to acute respiratory failure requiring intubation. Neuro: -Hx of cerebral palsy, epilepsy, herpes encephalitis, severe mental retardation -Continuing home meds: baclofen, clobazam, clonazepam, rectal diazepam, lamotrigine, phenobarbital -nonverbal at baseline -sedation vacation -Was not extubated today, continue sedation -Continue monitoring Cardiovascular: -Was tachycardic on admission -Continue to monitor Respiratory: -Hx of aspiration PNA -Continue home meds budesonide 0.25 mg, fluticasone, duonebs -Flu A positive -Continue ventialtor TV 350, RR 14 Fio2 60%. Decrease fio2 requirements as needed -Chest X-Ray shows left lower lobe PNA -Continue to monitor GI -hx of GERD -Continue home meds: lactobacillus acidophilus, ranitidine, milk of magnesium -Continue to monitor Renal -Lactate 2.7 on admission, 1.5 on repeat -Creatinine 0.9 -Continue to monitor ID -Patient was febrile, Tmax of 101.9 -Given Vancomycin and Zoysn -Continue Zoysn -Flu A positive- continue Tamiflu DVT: Heparin 5000 units SQ F: NS @ 100 ml/hrs E: Monitor CMP N: NPO Lines: PEG tube was in place before admission. Peripheral IV in place. Intubated on 06/02/2019 Dispo: Continued ICU monitoring. Visit type - Emergency Visit Emergency Visit: Yes ED Registration Date: 06/01/19 Care time: The patient presented to the Emergency Department on the above date and was hospitalized for further evaluation of their emergent condition. - New Patient This patient is new to me today: Yes Date on this admission: 06/02/19 - Critical Care Critical Care patient: Yes Total Critical Care Time (in minutes): 45 Critical Care Statement: The care of this patient involved high complexity decision making to prevent further life threatening deterioration of the patient 's condition and/or to evaluate & treat vital organ system(s) failure or risk of failure. ATTENDING PHYSICIAN STATEMENT I saw and evaluated the patient. I reviewed the resident's note and discussed the case with the resident. I agree with the resident's findings and plan as documented. SUBJECTIVE: OBJECTIVE: ASSESSMENT AND PLAN:
[2019-06-02] MEDS: PIPERACILLIN/TAZOB 3.375 GM 3.375 GM in DEXTROSE 5%-WATER - 50 ML IVPB SCH (18:13)
[2019-06-02] MEDS ORDERED: PT OWN MED DRAWER 7, Y5N ONE ×2 (20:35→21:08)
[2019-06-02] MEDS: ALBUTEROL SO4 2.5/IPRATROPIUM 0.5 INH SOL 3 ML VIAL.NEB. NEB PRN (20:50)
[2019-06-02] MEDS ORDERED: [UNRECOGNIZED DRUG - MIXTURE] GT SCH (22:00)
[2019-06-03] MEDS ORDERED: VANCOMYCIN 1 GRAM (PRE-DOCKED) 1,000 MG/250 ML BAG IVPB SCH ×2
[2019-06-03] MEDS: methylPREDNISolone NA SUCC 40 MG/1 ML VIAL IVPUSH SCH ×3 (01:03→17:09)
[2019-06-03] MEDS: PIPERACILLIN/TAZOB 3.375 GM 3.375 GM in DEXTROSE 5%-WATER - 50 ML IVPB SCH ×3 (01:03→17:09)
[2019-06-03] MEDS ORDERED: PIPERACILLIN/TAZOB 3.375 GM 3.375 GM in DEXTROSE 5%-WATER - 50 ML IVPB SCH (03:00)
[2019-06-03] MEDS: PROPOFOL 1,000,000 MCG/100 ML VIAL IVPB SCH ×2 (05:27→08:02)
[2019-06-03] MEDS: SODIUM CHLORIDE 1,000 ML IV SCH ×2 (05:27→14:56)
[2019-06-03] MEDS: clonazePAM 0.5 MG TABLET GT SCH ×3 (05:27→21:32)
[2019-06-03] MEDS: FLUTICASONE PROP 0.05% 16 GM NASAL SPRAY NS SCH (06:10)
[2019-06-03 06:35] LABS: HEMATOCRIT 37.9 % (35.4-49); HEMOGLOBIN 13.2 GM/dL (11.7-16.9); MCH 34.4 pg (25.7-33.7); MCHC 34.8 g/dl (32.0-35.9); MEAN CELL VOLUME 98.8 fl (80-96); MEAN PLT VOLUME 10.6 fl (7.5-11.1); PLATELET COUNT 152 K/MM3 (134-434); RBC 3.84 M/mm3 (4.00-5.60); RDW 13.3 % (11.9-15.9); WHITE BLOOD COUNT 9.6 K/mm3 (4.0-10.0)
[2019-06-03 07:01] LABS: BLOOD UREA NITROGEN 7.4 mg/dL (7-18); CALCIUM 8.8 mg/dL (8.5-10.1); CREATININE 0.6 mg/dL (0.55-1.3); MAGNESIUM 2.1 mg/dL (1.8-2.4)
--- NOTE | 2019-06-03 07:47 | PN ---
Physical Exam: SUBJECTIVE: Patient seen and examined NAEON. This morning, patient bucking the ventilator but unable to breathe spontaneously, so propofol 5mcg added back on OBJECTIVE: Vital Signs Period Temp Pulse Resp BP Sys/Linares Pulse Ox Last 24 Hr 99.4 F-99.9 F 70-107 14-21 94-126/38-68 100-100 GENERAL: The patient is sedated on the ventilator, blinking eyes spontaneously EYES: PERRLA ENT: ET Tube in place. LUNGS: mild crackles in R lung HEART: Regular rate and rhythm, S1, S2 without murmur, rub or gallop. ABDOMEN: Soft, nontender, nondistended, normoactive bowel sounds, no guarding. PEG tube in place in LUQ, no erythema or drainage EXTREMITIES: 2+ pulses, warm, well-perfused, no edema. Diffusely contracted. SKIN: Warm, dry Laboratory Results - last 24 hr 06/02/19 06/02/19 06/02/19 05:45 05:45 05:45 WBC RBC Hgb Hct MCV MCH MCHC RDW Plt Count MPV Neutrophils % (Manual) 52.5 D Band Neutrophils % 30.3 Lymphocytes % (Manual) 4.1 L D Monocytes % (Manual) 4 Eosinophils % (Manual) 0.0 D Basophils % (Manual) 0.0 Myelocytes % (Man) 0 Promyelocytes % (Man) 0 Blast Cells % (Manual) 0 Nucleated RBC % 0 Metamyelocytes 7 H D Hypochromia 0 Platelet Estimate Decreased Polychromasia 0 Poikilocytosis 0 Anisocytosis 0 Microcytosis 0 Macrocytosis 0 Sodium 135 L Potassium 3.9 Chloride 101 Carbon Dioxide 26 Anion Gap 9 BUN 11.9 Creatinine 0.9 Est GFR (CKD-EPI)AfAm 139.04 Est GFR (CKD-EPI)NonAf 119.96 POC Glucometer Random Glucose 96 Lactic Acid Cancelled Calcium 8.8 Phosphorus Magnesium 2.2 Total Bilirubin 0.9 AST 67 H ALT 56 Alkaline Phosphatase 186 H B-Natriuretic Peptide 449.0 H Total Protein 7.7 Albumin 3.4 06/02/19 06/02/19 06/02/19 12:52 18:19 21:30 WBC RBC Hgb Hct MCV MCH MCHC RDW Plt Count MPV Neutrophils % (Manual) Band Neutrophils % Lymphocytes % (Manual) Monocytes % (Manual) Eosinophils % (Manual) Basophils % (Manual) Myelocytes % (Man) Promyelocytes % (Man) Blast Cells % (Manual) Nucleated RBC % Metamyelocytes Hypochromia Platelet Estimate Polychromasia Poikilocytosis Anisocytosis Microcytosis Macrocytosis Sodium Potassium Chloride Carbon Dioxide Anion Gap BUN Creatinine Est GFR (CKD-EPI)AfAm Est GFR (CKD-EPI)NonAf POC Glucometer 207 117 128 Random Glucose Lactic Acid Calcium Phosphorus Magnesium Total Bilirubin AST ALT Alkaline Phosphatase B-Natriuretic Peptide Total Protein Albumin 06/03/19 06/03/19 05:58 05:58 WBC 9.6 RBC 3.84 L Hgb 13.2 Hct 37.9 MCV 98.8 H MCH 34.4 H MCHC 34.8 RDW 13.3 Plt Count 152 MPV 10.6 Neutrophils % (Manual) Band Neutrophils % Lymphocytes % (Manual) Monocytes % (Manual) Eosinophils % (Manual) Basophils % (Manual) Myelocytes % (Man) Promyelocytes % (Man) Blast Cells % (Manual) Nucleated RBC % Metamyelocytes Hypochromia Platelet Estimate Polychromasia Poikilocytosis Anisocytosis Microcytosis Macrocytosis Sodium 141 Potassium 4.0 Chloride 109 H Carbon Dioxide 26 Anion Gap 6 L BUN 7.4 Creatinine 0.6 Est GFR (CKD-EPI)AfAm 164.25 Est GFR (CKD-EPI)NonAf 141.72 POC Glucometer Random Glucose 149 H Lactic Acid Calcium 8.8 Phosphorus 2.0 L Magnesium 2.1 Total Bilirubin AST ALT Alkaline Phosphatase B-Natriuretic Peptide Total Protein Albumin Active Medications Generic Name Dose Route Start Last Admin Trade Name Freq PRN Reason Stop Dose Admin Acetaminophen 750 mg 06/02/19 14:29 06/02/19 21:20 Tylenol Oral Solution - GT 750 mg Q8H PRN Administration FEVER Acyclovir 400 mg 06/02/19 10:00 06/02/19 21:21 Zovirax Oral Suspension - GT 400 mg BID JORGE Administration Albuterol/Ipratropium 1 amp 06/02/19 00:23 06/02/19 20:50 Duoneb - NEB 1 amp QID PRN Administration WHEEZING Bacitracin 1 applic 06/02/19 10:00 06/02/19 21:17 Bacitracin - TP 1 applic BID JORGE Administration Baclofen 10 mg 06/02/19 10:00 06/02/19 21:19 Lioresal - GT 10 mg BID JORGE Administration Budesonide 1 amp 06/02/19 08:00 06/02/19 20:50 Pulmicort 0.25 Mg Nebulizer - NEB 1 amp RBID JORGE Administration Clobazam 10 mg 06/02/19 22:00 06/02/19 21:18 Onfi - GT 10 mg HS JORGE Administration Clobazam 5 mg 06/02/19 10:00 06/02/19 09:31 Onfi - GT 5 mg DAILY JORGE Administration Clonazepam 1.5 mg 06/02/19 06:15 06/03/19 05:27 Klonopin - GT 1.5 mg TID JORGE Administration Diazepam 7.5 mg 06/02/19 00:23 Diastat Rectal Gel - RC PRN PRN <Seizures> Famotidine 10 mg 06/02/19 10:00 06/02/19 21:21 Pepcid NR 10 mg BID JORGE Administration Fluticasone Propionate 2 spray 06/02/19 07:00 06/03/19 06:10 Flonase - NS 2 sprays AM JORGE Administration Heparin Sodium (Porcine) 5,000 unit 06/02/19 10:00 06/02/19 21:17 Heparin - SQ 5,000 unit BID JORGE Administration Propofol 1,000,000 mcg in 100 mls @ 1.034 mls/hr 06/02/19 02:15 06/03/19 05: 27 Diprivan - IVPB Not Given TITR JORGE Protocol 5 MCG/KG/MIN Sodium Chloride 1,000 mls @ 100 mls/hr 06/02/19 05:45 06/03/19 05:27 Normal Saline - IV 100 mls/hr ASDIR JORGE Administration Piperacillin Sod/Tazobactam 50 mls @ 100 mls/hr 06/02/19 18:00 06/03/19 01:03 Sod 3.375 gm/ Dextrose IVPB 100 mls/hr Q8H-IV JORGE Administration Protocol Lactobacillus Acidophilus 1 tab 06/02/19 10:00 06/02/19 09:25 Bacid - GT 1 tab DAILY JORGE Administration Lamotrigine 200 mg 06/02/19 10:00 06/02/19 21:19 Lamictal - PO 200 mg BID JORGE Administration Magnesium Hydroxide 20 ml 06/02/19 10:00 06/02/19 21:20 Milk Of Magnesia - GT 20 ml BID JORGE Administration Methylprednisolone Sodium Succinate 40 mg 06/02/19 02:45 06/03/19 01:03 Solu-Medrol - IVPUSH 40 mg Q8H-IV JORGE Administration Multivitamins/Minerals 15 ml 06/02/19 10:00 06/02/19 11:37 Certavite-Antioxidant Liquid GT 15 ml DAILY JORGE Administration Non-Formulary Medication 22 ml 06/02/19 10:00 Sodium Chloride/Aloe Vera [[place] Saline Nasal Gel [place]] NS BID JORGE Oseltamivir Phosphate 75 mg 06/02/19 03:15 06/02/19 21:22 Tamiflu - PEG 06/07/19 03:14 75 mg BID JORGE Administration Pantoprazole Sodium 40 mg 06/02/19 02:45 06/02/19 09:24 Protonix Iv IVPUSH 40 mg DAILY JORGE Administration Phenobarbital 48.6 mg 06/02/19 10:00 06/02/19 21:22 Phenobarbital Liquid - GT 48.6 mg BID JORGE Administration ASSESSMENT/PLAN: 24 yo M PMH cerebral palsy, epilepsy, herpes encephalitis, severe MR, nonverbal at baseline, GERD, and aspiration pneumonia, found to be rapid influenza A positive, s/p intubation due to worsening tachypnea and secretions causing difficulty protecting his airway. Neuro: - hx cerebral palsy, epilepsy, herpes encephalitis, severe mental retardation - home meds: baclofen 10mg GT BID, clobazam 5 mg GT daily and 10 mg GT QHS, clonazepam 1.5 mg GT TID, rectal diazepam gel, Lamotrigine 200mg BID, phenobarbital 48.6 mg GT BID - nonverbal at baseline - unable to assess orientation - ctm CV: - tachycardic - BNP elevated at 449 - ctm Respiratory: - hx aspiration PNA - home meds: budesonide 0.25 mg, Fluticasone, Duoneb - rapid influenza A positive - on ventilator at RR 14, TV 350, FiO2 40%, satting 97% - started back on propofol drip this AM - concern for L sided infiltrate - Chest CTA: no definite PE, but suboptimal view. Patchy densities in the ABHISHEK and more confluent densities in LLL, subtotal atelectasis v PNA. - ctm GI: - hx GERD - home meds: Lactobacillus acidophilus, Ranitidine 75 mg BID, milk of magnesium - ctm Renal: - Initial lactate 2.7, repeat 1.5 - initial VBG: pH 7.35, pCO2 55.3, HCO3 29.9 - AM Cr 0.6 - Phos low at 2, will replete - ctm Endo: - no acute concerns - ctm Heme/Onc: - AM WBC - AM Hgb - ctm ID: - giving acetaminophen PRN - afebrile this AM - given 1g vancomycin and piptazo 4.5g in the ED (06/02/2019) - giving 3.375g TID piptazo daily (started 06/02/2019) - rapid influenza A positive - giving Tamiflu 75 mg BID - ctm PPX: - heparin 5000 units SQ TID - SCDs FENLTD: - intubated on 06/02/2019, on ventilator - Phos low this AM, replete lytes PRN - NPO - PEG tube in LUQ Visit type - Emergency Visit Emergency Visit: Yes ED Registration Date: 06/01/19 Care time: The patient presented to the Emergency Department on the above date and was hospitalized for further evaluation of their emergent condition. - New Patient This patient is new to me today: No - Critical Care Critical Care patient: Yes Total Critical Care Time (in minutes): 45 Critical Care Statement: The care of this patient involved high complexity decision making to prevent further life threatening deterioration of the patient 's condition and/or to evaluate & treat vital organ system(s) failure or risk of failure. ATTENDING PHYSICIAN STATEMENT I saw and evaluated the patient. I reviewed the resident's note and discussed the case with the resident. I agree with the resident's findings and plan as documented. SUBJECTIVE: OBJECTIVE: ASSESSMENT AND PLAN:
[2019-06-03] MEDS ORDERED: DEXTROSE 5%-WATER - 50 ML IVPB ONE ×3 (07:58→23:35)
[2019-06-03] MEDS ORDERED: PIPERACILLIN/TAZOBACTAM 3.375 GM VIAL IVPB ONE ×3 (07:58→23:34)
[2019-06-03] MEDS ORDERED: NAPH,MB-DB/K PH,MBDB POWDER PACKET PEG ONE (08:02)
[2019-06-03] MEDS: BUDESONIDE 0.25 MG/2ML INH SUSP VIAL NEB SCH ×2 (08:06→21:38)
[2019-06-03] MEDS ORDERED: PT OWN MED DRAWER 7, Y5N ONE ×4 (08:32→21:37)
[2019-06-03] MEDS: LACTOBACILLUS ACIDOPHILUS 1 TABLET GT SCH (09:24)
[2019-06-03] MEDS: BACITRACIN 15 GM TUBE TOPICAL OINTMENT TP SCH ×2 (09:25→21:32)
[2019-06-03] MEDS: MULTIVIT-MINERALS ORAL LIQUID GT SCH (09:25)
[2019-06-03] MEDS: HEPARIN NA (PORCINE) 5,000 UNITS/ML 1ML VIAL SQ SCH ×2 (09:27→21:33)
[2019-06-03] MEDS: FAMOTIDINE 40 MG/5 ML ORAL SUSPENSION NR SCH ×2 (09:27→21:33)
[2019-06-03] MEDS: MAGNESIUM HYDROX 2400MG/30ML ORAL SUSPENSION 30 ML CUP GT SCH ×2 (09:28→21:31)
[2019-06-03] MEDS: cloBAZam 10 MG TABLET GT SCH ×2 (09:28→21:32)
[2019-06-03] MEDS: PHENobarbital 20 MG/5 ML UNIT-DOSE CUP GT SCH ×2 (09:30→23:00)
[2019-06-03] MEDS: OSELTAMIVIR PHOSPHATE 75 MG CAPSULE PEG SCH ×2 (09:31→21:36)
[2019-06-03] MEDS: ACYCLOVIR 200 MG/5 ML LIQUID GT SCH ×2 (09:31→21:34)
[2019-06-03] MEDS: PANTOPRAZOLE SODIUM 40 MG VIAL IVPUSH SCH (09:32)
[2019-06-03] MEDS: BACLOFEN 10 MG TABLET (FP) GT SCH ×2 (09:32→21:35)
[2019-06-03] MEDS: lamoTRIgine 100 MG TABLET PO SCH ×2 (09:32→21:34)
--- NOTE | 2019-06-03 10:13 | PN ---
Physical Exam: SUBJECTIVE: Patient seen and examined. No acute events overnight. Off sedation, still intubated. Patient awake and fighting ET tube. OBJECTIVE: Vital Signs Period Temp Pulse Resp BP Sys/Linares Pulse Ox Last 24 Hr 99.1 F-99.9 F 62-130 14-30 94-127/38-68 99-100 GENERAL: intubated, awake, alert, NAD HEAD: Normal with no signs of trauma. EYES: PERRL, no scleral icterus ENT: dry mucous membranes, ET tube in place NECK: Trachea midline, full range of motion, supple. LUNGS: coarse breath sounds at bases, mechanically ventilated HEART: tachycardic ABDOMEN: soft, NT, ND, no guarding. PEG tube in place EXTREMITIES: 2+ pulses, warm, well-perfused, no edema. contracted upper and lower extremities NEUROLOGICAL: normal gag reflex PSYCH: Normal mood, normal affect. SKIN: Warm, dry, normal turgor Laboratory Results - last 24 hr 06/02/19 06/02/19 06/02/19 05:45 05:45 05:45 WBC RBC Hgb Hct MCV MCH MCHC RDW Plt Count MPV Neutrophils % (Manual) 52.5 D Band Neutrophils % 30.3 Lymphocytes % (Manual) 4.1 L D Monocytes % (Manual) 4 Eosinophils % (Manual) 0.0 D Basophils % (Manual) 0.0 Myelocytes % (Man) 0 Promyelocytes % (Man) 0 Blast Cells % (Manual) 0 Nucleated RBC % 0 Metamyelocytes 7 H D Hypochromia 0 Platelet Estimate Decreased Polychromasia 0 Poikilocytosis 0 Anisocytosis 0 Microcytosis 0 Macrocytosis 0 Sodium 135 L Potassium 3.9 Chloride 101 Carbon Dioxide 26 Anion Gap 9 BUN 11.9 Creatinine 0.9 Est GFR (CKD-EPI)AfAm 139.04 Est GFR (CKD-EPI)NonAf 119.96 POC Glucometer Random Glucose 96 Lactic Acid Cancelled Calcium 8.8 Phosphorus Magnesium 2.2 Total Bilirubin 0.9 AST 67 H ALT 56 Alkaline Phosphatase 186 H B-Natriuretic Peptide 449.0 H Total Protein 7.7 Albumin 3.4 06/02/19 06/02/19 06/02/19 12:52 18:19 21:30 WBC RBC Hgb Hct MCV MCH MCHC RDW Plt Count MPV Neutrophils % (Manual) Band Neutrophils % Lymphocytes % (Manual) Monocytes % (Manual) Eosinophils % (Manual) Basophils % (Manual) Myelocytes % (Man) Promyelocytes % (Man) Blast Cells % (Manual) Nucleated RBC % Metamyelocytes Hypochromia Platelet Estimate Polychromasia Poikilocytosis Anisocytosis Microcytosis Macrocytosis Sodium Potassium Chloride Carbon Dioxide Anion Gap BUN Creatinine Est GFR (CKD-EPI)AfAm Est GFR (CKD-EPI)NonAf POC Glucometer 207 117 128 Random Glucose Lactic Acid Calcium Phosphorus Magnesium Total Bilirubin AST ALT Alkaline Phosphatase B-Natriuretic Peptide Total Protein Albumin 06/03/19 06/03/19 05:58 05:58 WBC 9.6 RBC 3.84 L Hgb 13.2 Hct 37.9 MCV 98.8 H MCH 34.4 H MCHC 34.8 RDW 13.3 Plt Count 152 MPV 10.6 Neutrophils % (Manual) Band Neutrophils % Lymphocytes % (Manual) Monocytes % (Manual) Eosinophils % (Manual) Basophils % (Manual) Myelocytes % (Man) Promyelocytes % (Man) Blast Cells % (Manual) Nucleated RBC % Metamyelocytes Hypochromia Platelet Estimate Polychromasia Poikilocytosis Anisocytosis Microcytosis Macrocytosis Sodium 141 Potassium 4.0 Chloride 109 H Carbon Dioxide 26 Anion Gap 6 L BUN 7.4 Creatinine 0.6 Est GFR (CKD-EPI)AfAm 164.25 Est GFR (CKD-EPI)NonAf 141.72 POC Glucometer Random Glucose 149 H Lactic Acid Calcium 8.8 Phosphorus 2.0 L Magnesium 2.1 Total Bilirubin AST ALT Alkaline Phosphatase B-Natriuretic Peptide Total Protein Albumin Active Medications Generic Name Dose Route Start Last Admin Trade Name Freq PRN Reason Stop Dose Admin Acetaminophen 750 mg 06/02/19 14:29 06/02/19 21:20 Tylenol Oral Solution - GT 750 mg Q8H PRN Administration FEVER Acyclovir 400 mg 06/02/19 10:00 06/03/19 09:31 Zovirax Oral Suspension - GT 400 mg BID JORGE Administration Albuterol/Ipratropium 1 amp 06/02/19 00:23 06/02/19 20:50 Duoneb - NEB 1 amp QID PRN Administration WHEEZING Bacitracin 1 applic 06/02/19 10:00 06/03/19 09:25 Bacitracin - TP 1 applic BID JORGE Administration Baclofen 10 mg 06/02/19 10:00 06/03/19 09:32 Lioresal - GT 10 mg BID JORGE Administration Budesonide 1 amp 06/02/19 08:00 06/03/19 08:06 Pulmicort 0.25 Mg Nebulizer - NEB Not Given RBID JORGE Clobazam 10 mg 06/02/19 22:00 06/02/19 21:18 Onfi - GT 10 mg HS JORGE Administration Clobazam 5 mg 06/02/19 10:00 06/03/19 09:28 Onfi - GT 5 mg DAILY JORGE Administration Clonazepam 1.5 mg 06/02/19 06:15 06/03/19 05:27 Klonopin - GT 1.5 mg TID JORGE Administration Diazepam 7.5 mg 06/02/19 00:23 Diastat Rectal Gel - RC PRN PRN <Seizures> Famotidine 10 mg 06/02/19 10:00 06/03/19 09:27 Pepcid NR 10 mg BID JORGE Administration Fluticasone Propionate 2 spray 06/02/19 07:00 06/03/19 06:10 Flonase - NS 2 sprays AM JORGE Administration Heparin Sodium (Porcine) 5,000 unit 06/02/19 10:00 06/03/19 09:27 Heparin - SQ 5,000 unit BID JORGE Administration Propofol 1,000,000 mcg in 100 mls @ 1.034 mls/hr 06/02/19 02:15 06/03/19 08: 02 Diprivan - IVPB 5 mcg/kg/min TITR JORGE 1.034 mls/hr Administration Protocol 5 MCG/KG/MIN Sodium Chloride 1,000 mls @ 100 mls/hr 06/02/19 05:45 06/03/19 05:27 Normal Saline - IV 100 mls/hr ASDIR JORGE Administration Piperacillin Sod/Tazobactam 50 mls @ 100 mls/hr 06/02/19 18:00 06/03/19 09:24 Sod 3.375 gm/ Dextrose IVPB 100 mls/hr Q8H-IV JORGE Administration Protocol Lactobacillus Acidophilus 1 tab 06/02/19 10:00 06/03/19 09:24 Bacid - GT 1 tab DAILY JORGE Administration Lamotrigine 200 mg 06/02/19 10:00 06/03/19 09:32 Lamictal - PO 200 mg BID JORGE Administration Magnesium Hydroxide 20 ml 06/02/19 10:00 06/03/19 09:28 Milk Of Magnesia - GT 20 ml BID JORGE Administration Methylprednisolone Sodium Succinate 40 mg 06/02/19 02:45 06/03/19 09:32 Solu-Medrol - IVPUSH 40 mg Q8H-IV JORGE Administration Multivitamins/Minerals 15 ml 06/02/19 10:00 06/03/19 09:25 Certavite-Antioxidant Liquid GT 15 ml DAILY JORGE Administration Non-Formulary Medication 22 ml 06/02/19 10:00 Sodium Chloride/Aloe Vera [[place] Saline Nasal Gel [place]] NS BID JORGE Oseltamivir Phosphate 75 mg 06/02/19 03:15 06/03/19 09:31 Tamiflu - PEG 06/07/19 03:14 75 mg BID JORGE Administration Pantoprazole Sodium 40 mg 06/02/19 02:45 06/03/19 09:32 Protonix Iv IVPUSH 40 mg DAILY JORGE Administration Phenobarbital 48.6 mg 06/02/19 10:00 06/03/19 09:30 Phenobarbital Liquid - GT 48.6 mg BID JORGE Administration ASSESSMENT/PLAN: 24 y/o/m [place] resident with PMHx significant of CP, epilepsy, herpes encephalitis, GERD, and aspiration pneumonia. He was sent to the ER after he developed a non productive cough and was noticed to be warm to the touch, crying frequently, and short of breath. Was admitted for management of sepsis 2/ 2 pneumonia. #Sepsis 2/2 Pneumonia and Influenza - left basilar retrocardiac infiltrate noted on repeat CXR - WBC resolved - Influenza A positive, continue Tamiflu 75mg BID via PEG - Lactic acid normalized - Blood, urine cx, urine for Strep/Legionella negative to date - Vanc/Zosyn given in ED - Continue Zosyn - ID consulted (Dr. Rosenthal) #Hypoxic respiratory distress - Respiratory distress likely 2/2 to pneumonia - Off sedation this morning, awake, possible candidate for extubation today - repeat ABG with improvement -> pH 7.4, pO2 111, PCO2 44.3 - ABGs on 100% FiO2: pH 7.4, O2 111, CO2 44.3, HCO3 27.1 - CTA negative for PE, showing almost complete atelectasis of left lung - Continue home Pulmicort nebs #Hx of seizures - Currently asymptomatic - Continue home anti-seizure meds #Polycythemia - H&H 17.4/51.1 on admission, baseline seems to be around 13/40 as per previous records, may be relative due to stress - repeat CBC showing improvement, now 13.2/37.9 #Transaminitis with elevated ALP - Patient has had elevated liver enzymes upon previous admissions - Likely 2/2 to medication side effect #Hx of herpes encephalitis - Continue acyclovir 400 BID #DVT ppx - Heparin SQ #FEN - NS @100mls/hr - Resume tube feeds through PEG #Dispo - possible extubation today, continuing ICU care Visit type - Emergency Visit Emergency Visit: Yes ED Registration Date: 06/01/19 Care time: The patient presented to the Emergency Department on the above date and was hospitalized for further evaluation of their emergent condition. - New Patient This patient is new to me today: No - Critical Care Critical Care patient: Yes Total Critical Care Time (in minutes): 36 Critical Care Statement: The care of this patient involved high complexity decision making to prevent further life threatening deterioration of the patient 's condition and/or to evaluate & treat vital organ system(s) failure or risk of failure. ATTENDING PHYSICIAN STATEMENT I saw and evaluated the patient. I reviewed the resident's note and discussed the case with the resident. I agree with the resident's findings and plan as documented. SUBJECTIVE: OBJECTIVE: ASSESSMENT AND PLAN:
[2019-06-03] MEDS ORDERED: BENZOIN/ALOE VERA/STORAX/TOLU 58 ML BOTTLE ONE (11:49)
--- NOTE | 2019-06-03 11:59 | PN ---
Progress Note, Physician History of Present Illness: AWAKE ON VENTILATOR NO ACUTE DISTRESS TEMPS DOWN AFEBRILE WBC IMPROVED LEGIONELLA/ PNEUMOCOCCAL AG (-) BC (-) SPUTUM C/S NORMAL CHENCHO - Current Medication List Current Medications: Active Medications Acetaminophen (Tylenol Oral Solution -) 750 mg GT Q8H PRN PRN Reason: FEVER Last Admin: 06/02/19 21:20 Dose: 750 mg Acyclovir (Zovirax Oral Suspension -) 400 mg GT BID [facility] Last Admin: 06/03/19 09:31 Dose: 400 mg Albuterol/Ipratropium (Duoneb -) 1 amp NEB QID PRN PRN Reason: WHEEZING Last Admin: 06/02/19 20:50 Dose: 1 amp Bacitracin (Bacitracin -) 1 applic TP BID [facility] Last Admin: 06/03/19 09:25 Dose: 1 applic Baclofen (Lioresal -) 10 mg GT BID [facility] Last Admin: 06/03/19 09:32 Dose: 10 mg Budesonide (Pulmicort 0.25 Mg Nebulizer -) 1 amp NEB RBID [facility] Last Admin: 06/03/19 08:06 Dose: Not Given Clobazam (Onfi -) 10 mg GT HS [facility] Last Admin: 06/02/19 21:18 Dose: 10 mg Clobazam (Onfi -) 5 mg GT DAILY [facility] Last Admin: 06/03/19 09:28 Dose: 5 mg Clonazepam (Klonopin -) 1.5 mg GT TID [facility] Last Admin: 06/03/19 05:27 Dose: 1.5 mg Diazepam (Diastat Rectal Gel -) 7.5 mg RC PRN PRN PRN Reason: <Seizures> Famotidine (Pepcid) 10 mg NR BID [facility] Last Admin: 06/03/19 09:27 Dose: 10 mg Fluticasone Propionate (Flonase -) 2 spray NS AM [facility] Last Admin: 06/03/19 06:10 Dose: 2 sprays Heparin Sodium (Porcine) (Heparin -) 5,000 unit SQ BID [facility] Last Admin: 06/03/19 09:27 Dose: 5,000 unit Propofol (Diprivan -) 1,000,000 mcg in 100 mls @ 1.034 mls/hr IVPB TITR [facility]; Protocol Last Admin: 06/03/19 08:02 Dose: 5 mcg/kg/min, 1.034 mls/hr Sodium Chloride (Normal Saline -) 1,000 mls @ 100 mls/hr IV ASDIR [facility] Last Admin: 06/03/19 05:27 Dose: 100 mls/hr Piperacillin Sod/Tazobactam (Sod 3.375 gm/ Dextrose) 50 mls @ 100 mls/hr IVPB Q8H-IV JORGE; Protocol Last Admin: 06/03/19 09:24 Dose: 100 mls/hr Lactobacillus Acidophilus (Bacid -) 1 tab GT DAILY [facility] Last Admin: 06/03/19 09:24 Dose: 1 tab Lamotrigine (Lamictal -) 200 mg PO BID [facility] Last Admin: 06/03/19 09:32 Dose: 200 mg Magnesium Hydroxide (Milk Of Magnesia -) 20 ml GT BID [facility] Last Admin: 06/03/19 09:28 Dose: 20 ml Methylprednisolone Sodium Succinate (Solu-Medrol -) 40 mg IVPUSH Q8H-IV [facility] Last Admin: 06/03/19 09:32 Dose: 40 mg Multivitamins/Minerals (Certavite-Antioxidant Liquid) 15 ml GT DAILY [facility] Last Admin: 06/03/19 09:25 Dose: 15 ml Oseltamivir Phosphate (Tamiflu -) 75 mg PEG BID [facility] Stop: 06/07/19 03:14 Last Admin: 06/03/19 09:31 Dose: 75 mg Pantoprazole Sodium (Protonix Iv) 40 mg IVPUSH DAILY [facility] Last Admin: 06/03/19 09:32 Dose: 40 mg Phenobarbital (Phenobarbital Liquid -) 48.6 mg GT BID [facility] Last Admin: 06/03/19 09:30 Dose: 48.6 mg Sodium Chloride ([place] Nasal [place] -) 2 spray NS BID [facility] - Objective Vital Signs: Vital Signs Temperature 99.1 F 06/03/19 09:44 Pulse Rate 62 06/03/19 09:44 Respiratory Rate 14 06/03/19 09:44 Blood Pressure 127/67 06/03/19 09:45 O2 Sat by Pulse Oximetry (%) 99 06/03/19 08:53 Constitutional: Yes: No Distress Cardiovascular: Yes: Regular Rate and Rhythm, S1, S2 Respiratory: Yes: Mechanically Ventilated Gastrointestinal: Yes: Normal Bowel Sounds, Soft. No: Tenderness Extremities: Yes: Other (+ CONTRACTURES) Labs: CBC, BMP 06/03/19 05:58 06/03/19 05:58 INR, PTT INR 1.27 (0.83-1.09) H 06/02/19 05:45 Assessment/Plan RESP FAILURE INFLUENZA ? SUPERIMPOSED BACTERIAL PNEUMONIA CP/MR COMPLETE COURSE OF TAMIFLU CONTINUE EMPIRIC ZOSYN
--- NOTE | 2019-06-03 13:30 | PN ---
Teaching Attending Note Name of Resident: Danay Blevins ATTENDING PHYSICIAN STATEMENT I saw and evaluated the patient. I reviewed the resident's note and discussed the case with the resident. I agree with the resident's findings and plan as documented. SUBJECTIVE: Patient seen and examined in the ICU. Remains intubated and sedated. AC Mode of vent, 40% FiO2. No pressors. CXR: poor quality / left hemithorax opacified by head OBJECTIVE: Intake & Output 05/31/19 06/01/19 06/02/19 06/03/19 23:59 23:59 23:59 23:59 Intake Total 600 2505 810 Output Total 90 600 900 Balance 510 1905 -90 Weight 76 lb 89 lb 89 lb Last Vital Signs Temp Pulse Resp BP Pulse Ox 99.1 F 62 14 123/60 99 06/03/19 10:00 06/03/19 12:00 06/03/19 12:28 06/03/19 12:00 06/03/19 08:53 Active Medications Acetaminophen (Tylenol Oral Solution -) 750 mg GT Q8H PRN PRN Reason: FEVER Last Admin: 06/02/19 21:20 Dose: 750 mg Acyclovir (Zovirax Oral Suspension -) 400 mg GT BID [facility] Last Admin: 06/03/19 09:31 Dose: 400 mg Albuterol/Ipratropium (Duoneb -) 1 amp NEB QID PRN PRN Reason: WHEEZING Last Admin: 06/02/19 20:50 Dose: 1 amp Bacitracin (Bacitracin -) 1 applic TP BID [facility] Last Admin: 06/03/19 09:25 Dose: 1 applic Baclofen (Lioresal -) 10 mg GT BID [facility] Last Admin: 06/03/19 09:32 Dose: 10 mg Budesonide (Pulmicort 0.25 Mg Nebulizer -) 1 amp NEB RBID [facility] Last Admin: 06/03/19 08:06 Dose: Not Given Clobazam (Onfi -) 10 mg GT HS [facility] Last Admin: 06/02/19 21:18 Dose: 10 mg Clobazam (Onfi -) 5 mg GT DAILY [facility] Last Admin: 06/03/19 09:28 Dose: 5 mg Clonazepam (Klonopin -) 1.5 mg GT TID [facility] Last Admin: 06/03/19 05:27 Dose: 1.5 mg Diazepam (Diastat Rectal Gel -) 7.5 mg RC PRN PRN PRN Reason: <Seizures> Famotidine (Pepcid) 10 mg NR BID [facility] Last Admin: 06/03/19 09:27 Dose: 10 mg Fluticasone Propionate (Flonase -) 2 spray NS AM [facility] Last Admin: 06/03/19 06:10 Dose: 2 sprays Heparin Sodium (Porcine) (Heparin -) 5,000 unit SQ BID [facility] Last Admin: 06/03/19 09:27 Dose: 5,000 unit Propofol (Diprivan -) 1,000,000 mcg in 100 mls @ 1.034 mls/hr IVPB TITR [facility]; Protocol Last Admin: 06/03/19 08:02 Dose: 5 mcg/kg/min, 1.034 mls/hr Sodium Chloride (Normal Saline -) 1,000 mls @ 100 mls/hr IV ASDIR [facility] Last Admin: 06/03/19 05:27 Dose: 100 mls/hr Piperacillin Sod/Tazobactam (Sod 3.375 gm/ Dextrose) 50 mls @ 100 mls/hr IVPB Q8H-IV [facility]; Protocol Last Admin: 06/03/19 09:24 Dose: 100 mls/hr Lactobacillus Acidophilus (Bacid -) 1 tab GT DAILY [facility] Last Admin: 06/03/19 09:24 Dose: 1 tab Lamotrigine (Lamictal -) 200 mg PO BID [facility] Last Admin: 06/03/19 09:32 Dose: 200 mg Magnesium Hydroxide (Milk Of Magnesia -) 20 ml GT BID [facility] Last Admin: 06/03/19 09:28 Dose: 20 ml Methylprednisolone Sodium Succinate (Solu-Medrol -) 40 mg IVPUSH Q8H-IV [facility] Last Admin: 06/03/19 09:32 Dose: 40 mg Multivitamins/Minerals (Certavite-Antioxidant Liquid) 15 ml GT DAILY [facility] Last Admin: 06/03/19 09:25 Dose: 15 ml Oseltamivir Phosphate (Tamiflu -) 75 mg PEG BID [facility] Stop: 06/07/19 03:14 Last Admin: 06/03/19 09:31 Dose: 75 mg Pantoprazole Sodium (Protonix Iv) 40 mg IVPUSH DAILY [facility] Last Admin: 06/03/19 09:32 Dose: 40 mg Phenobarbital (Phenobarbital Liquid -) 48.6 mg GT BID [facility] Last Admin: 06/03/19 09:30 Dose: 48.6 mg Sodium Chloride ([place] Nasal [place] -) 2 spray NS BID [facility] Gen: intubated, sedated Heart: RRR Lung: Vented, bilateral rhonchi, no wheeze Abd: soft, nontender, mildly distended, (+) BS Ext: no edema, contracted Laboratory Results - last 24 hr 06/02/19 06/02/19 06/03/19 18:19 21:30 05:58 WBC 9.6 RBC 3.84 L Hgb 13.2 Hct 37.9 MCV 98.8 H MCH 34.4 H MCHC 34.8 RDW 13.3 Plt Count 152 MPV 10.6 Sodium Potassium Chloride Carbon Dioxide Anion Gap BUN Creatinine Est GFR (CKD-EPI)AfAm Est GFR (CKD-EPI)NonAf POC Glucometer 117 128 Random Glucose Calcium Phosphorus Magnesium 06/03/19 06/03/19 05:58 12:05 WBC RBC Hgb Hct MCV MCH MCHC RDW Plt Count MPV Sodium 141 Potassium 4.0 Chloride 109 H Carbon Dioxide 26 Anion Gap 6 L BUN 7.4 Creatinine 0.6 Est GFR (CKD-EPI)AfAm 164.25 Est GFR (CKD-EPI)NonAf 141.72 POC Glucometer 141 Random Glucose 149 H Calcium 8.8 Phosphorus 2.0 L Magnesium 2.1 ASSESSMENT AND PLAN: Acute Hypoxic Respiratory Failure Influenza A Pneumonia Sepsis Lactic Acidosis Cerebral Palsy Mental Retardation Seizure Disorder GERD - Repeat CXR (need to confirm ETT: 20 at the lips currently) - continue tamiflu, antibiotics - f/u cultures - taper Fio2 to keep SpO2 >90% - empiric medrol - inhaled bronchodilators - IVF - monitor urine output, creatinine - spontaneous breathing trials as tolerated - DVT/GI prophylaxis - Requires continued ICU monitoring Dr Price Critical care time spent in reviewing chart, evaluating patient and formulating plan 35 min
--- NOTE | 2019-06-03 18:14 | PN ---
Teaching Attending Note Name of Resident: Halima Camacho ATTENDING PHYSICIAN STATEMENT I saw and evaluated the patient. I reviewed the resident's note and discussed the case with the resident. I agree with the resident's findings and plan as documented. Seen and examined; please see resident note for further historical information. I personally verified all alvarez historical information and exam findings. Personally interpreted all imaging and diagnostics and reviewed appropriate consults. I reviewed all labs and vital signs as per resident note and EMR as documented. I agree with the above assessment and plan unless supplemented by myself in the following. Patient is intubated and sedated in the ICU. He is 24-year-old male who is known to the service through multiple admissions through the [facility]. He is critically ill and remains on the medicine service with pulmonary critical care medicine consult. Hospital medicine has a limited role in the management of this critically ill patient. ABG reveals PaO2 of 111 with normal PCO2 and bicarb nearly within normal limits. Slight coagulopathy observed with INR at 1.27 no white count and persisting macrocytosis without anemia. Patient's lactic acid was 2.7 initially but down trended to 1.5. He is positive for influenza A which is likely because of his underlying pneumonia. He remains on Tamiflu, Zosyn, was paralyzed with rocuronium. We will verify position of the ET tube has potential missed position was noted on the CT scan that was obtained overnight. Could not complete review of systems secondary to underlying fact that he is intubated on the ventilator VS, labs, imaging reviewed Intubated and sedated on ventillator resting in bed, vent settings per flowsheet ET Tube in place; IV access noted with no apparent surrounding cellulitis RRR s1/2 no mgr Normal muscle tone, moves all 5 extremities with normal apparent strength Neck is supple, trachea midline, no ed[place] LN Lungs CTAB with sym expansion NT ND +BS no [place]en organomegaly CN2-12 wnl; no FND but limited given clinical circumstances. NC AT EOMI PERRLA Not agitated, cannot complete full psych assessment No skin breakdown or rashes noted Imaging reviewed, CT scan and chest x-ray Telemetry reviewed EKG reviewed ASSESSMENT AND PLAN: Patient remains improved but failed extubation today, continue on antibiotics per ID. Weaning per pulmonary. Monitor in the ICU on the medicine service. Assessment and plan: Sepsis secondary to influenza pneumonia with potential aspiration component. He was recently admitted and treated with Zosyn to Aug[facility] and completed a 7- day course. This is likely secondary to exposure at his facility given the influenza positivity. We will be covering also with Tamiflu for the appropriate course. Acute hypoxic respiratory failure secondary to the aforementioned; He is intubated and sedated on the ventilator. Weaning as per pulmonary protocol. *Today he is improved but failed weaning per ICU; continue abx and rita History of Epilepsy; No seizure activity noted. Continue Lamictal, Phenobarbital, Klonopin, Onfi Asthma; Nebs/steroids as per pulmonary medicine with respect to the second issue on the last MR/Cerebral palsy Functional Quadraplegia secondary to the aforementioned. History of Herpes meningoencephalitis; Is on acyclovir. Continue. Chronic constipation; Monitor for bowel movement. Is on MiraLAX in the past. If needed can give additional dose. 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 No issues with it. Nutrition: Continue current recs DVT px: Noted GI px: On home famotidine. Full Code
[2019-06-03] MEDS: SODIUM CHLORIDE NASAL SPRAY 44 ML BOTTLE NS SCH (21:35)
[2019-06-04] MEDS: methylPREDNISolone NA SUCC 40 MG/1 ML VIAL IVPUSH SCH ×3 (01:19→17:01)
[2019-06-04] MEDS: PIPERACILLIN/TAZOB 3.375 GM 3.375 GM in DEXTROSE 5%-WATER - 50 ML IVPB SCH ×3 (01:20→17:53)
[2019-06-04] MEDS: PROPOFOL 1,000,000 MCG/100 ML VIAL IVPB SCH (03:35)
[2019-06-04] MEDS: FLUTICASONE PROP 0.05% 16 GM NASAL SPRAY NS SCH (06:56)
[2019-06-04] MEDS: SODIUM CHLORIDE 1,000 ML IV SCH (06:57)
[2019-06-04] MEDS: clonazePAM 0.5 MG TABLET GT SCH ×3 (06:57→21:51)
[2019-06-04 07:13] LABS: BASO % 0.2 % (0-2.0); HEMATOCRIT 34.8 % (35.4-49); HEMOGLOBIN 11.9 GM/dL (11.7-16.9); LYMPH % 29.4 % (8-40); MCH 34.4 pg (25.7-33.7); MCHC 34.3 g/dl (32.0-35.9); MEAN CELL VOLUME 100.2 fl (80-96); MEAN PLT VOLUME 10.6 fl (7.5-11.1); MONO % 6.8 % (3.8-10.2); NEUT % 63.6 % (42.8-82.8); PLATELET COUNT 146 K/MM3 (134-434); RBC 3.47 M/mm3 (4.00-5.60); RDW 13.6 % (11.9-15.9)
[2019-06-04 07:51] LABS: ALBUMIN 2.7 g/dl (3.4-5.0); BILIRUBIN,TOTAL 0.2 mg/dL (0.2-1); BLOOD UREA NITROGEN 7.3 mg/dL (7-18); CALCIUM 8.4 mg/dL (8.5-10.1); CREATININE 0.5 mg/dL (0.55-1.3); MAGNESIUM 2.1 mg/dL (1.8-2.4); PHOSPHOROUS 3.4 mg/dL (2.5-4.9); POTASSIUM 3.4 mmol/L (3.5-5.1); TOT PROT 6.4 g/dl (6.4-8.2)
[2019-06-04] MEDS: ALBUTEROL SO4 2.5/IPRATROPIUM 0.5 INH SOL 3 ML VIAL.NEB. NEB PRN (08:25)
[2019-06-04] MEDS: BUDESONIDE 0.25 MG/2ML INH SUSP VIAL NEB SCH ×2 (08:25→20:30)
[2019-06-04] MEDS ORDERED: PT OWN MED DRAWER 7, Y5N ONE (09:31)
[2019-06-04] MEDS ORDERED: DEXTROSE 5%-WATER - 50 ML IVPB ONE ×2 (09:32→17:52)
[2019-06-04] MEDS ORDERED: PIPERACILLIN/TAZOBACTAM 3.375 GM VIAL IVPB ONE ×2 (09:32→17:52)
--- NOTE | 2019-06-04 09:46 | PN ---
Progress Note (short form) - Note Progress Note: intubated fiO2 40% Vital Signs Period Temp Pulse Resp BP Sys/Linares Pulse Ox Last 24 Hr 99.1 F-100.2 F 51-96 12-18 116-136/50-67 98 cor-rrr lungs decreased bs at bases abd soft,nt ext no edema CBC, BMP 06/04/19 05:40 06/04/19 05:40 Microbiology 06/01/19 19:50 Blood - Peripheral Venous Blood Culture - Preliminary NO GROWTH OBTAINED AFTER 48 HOURS, INCUBATION TO CONTINUE FOR 3 DAYS. 06/01/19 19:30 Blood - Peripheral Venous Blood Culture - Preliminary NO GROWTH OBTAINED AFTER 48 HOURS, INCUBATION TO CONTINUE FOR 3 DAYS. 06/02/19 12:55 Urine For Antigen Detection Legionella Antigen - Final 06/02/19 12:55 Urine For Antigen Detection Streptococcus pneumoniae Antigen (M - Final 06/02/19 04:30 Sputum - Endotrachea Suction/Ventilator Gram Stain - Final 06/02/19 04:30 Sputum - Endotrachea Suction/Ventilator Sputum Culture - Preliminary NORMAL RESPIRATORY CHENCHO 06/01/19 19:30 Urine - Urine Clean Catch Urine Culture - Final NO GROWTH OBTAINED Current Medications Acetaminophen (Tylenol Oral Solution -) 750 mg GT Q8H PRN PRN Reason: FEVER Last Admin: 06/02/19 21:20 Dose: 750 mg Acyclovir (Zovirax Oral Suspension -) 400 mg GT BID [facility] Last Admin: 06/03/19 21:34 Dose: 400 mg Albuterol/Ipratropium (Duoneb -) 1 amp NEB QID PRN PRN Reason: WHEEZING Last Admin: 06/02/19 20:50 Dose: 1 amp Bacitracin (Bacitracin -) 1 applic TP BID [facility] Last Admin: 06/03/19 21:32 Dose: 1 applic Baclofen (Lioresal -) 10 mg GT BID [facility] Last Admin: 06/03/19 21:35 Dose: 10 mg Budesonide (Pulmicort 0.25 Mg Nebulizer -) 1 amp NEB RBID [facility] Last Admin: 06/03/19 21:38 Dose: 1 amp Clobazam (Onfi -) 10 mg GT HS [facility] Last Admin: 06/03/19 21:32 Dose: 10 mg Clobazam (Onfi -) 5 mg GT DAILY [facility] Last Admin: 06/03/19 09:28 Dose: 5 mg Clonazepam (Klonopin -) 1.5 mg GT TID JORGE Last Admin: 06/04/19 06:57 Dose: 1.5 mg Diazepam (Diastat Rectal Gel -) 7.5 mg RC PRN PRN PRN Reason: <Seizures> Famotidine (Pepcid) 10 mg NR BID [facility] Last Admin: 06/03/19 21:33 Dose: 10 mg Fluticasone Propionate (Flonase -) 2 spray NS AM [facility] Last Admin: 06/04/19 06:56 Dose: 2 sprays Heparin Sodium (Porcine) (Heparin -) 5,000 unit SQ BID [facility] Last Admin: 06/03/19 21:33 Dose: 5,000 unit Propofol (Diprivan -) 1,000,000 mcg in 100 mls @ 1.034 mls/hr IVPB TITR JORGE; Protocol Last Admin: 06/04/19 03:35 Dose: 5 mcg/kg/min, 1.034 mls/hr Sodium Chloride (Normal Saline -) 1,000 mls @ 100 mls/hr IV ASDIR [facility] Last Admin: 06/04/19 06:57 Dose: 100 mls/hr Piperacillin Sod/Tazobactam (Sod 3.375 gm/ Dextrose) 50 mls @ 100 mls/hr IVPB Q8H-IV JORGE; Protocol Last Admin: 06/04/19 01:20 Dose: 100 mls/hr Lactobacillus Acidophilus (Bacid -) 1 tab GT DAILY [facility] Last Admin: 06/03/19 09:24 Dose: 1 tab Lamotrigine (Lamictal -) 200 mg PO BID [facility] Last Admin: 06/03/19 21:34 Dose: 200 mg Magnesium Hydroxide (Milk Of Magnesia -) 20 ml GT BID [facility] Last Admin: 06/03/19 21:31 Dose: 20 ml Methylprednisolone Sodium Succinate (Solu-Medrol -) 40 mg IVPUSH Q8H-IV [facility]ORGE Last Admin: 06/04/19 01:19 Dose: 40 mg Multivitamins/Minerals (Certavite-Antioxidant Liquid) 15 ml GT DAILY [facility] Last Admin: 06/03/19 09:25 Dose: 15 ml Oseltamivir Phosphate (Tamiflu -) 75 mg PEG BID [facility] Stop: 06/07/19 03:14 Last Admin: 06/03/19 21:36 Dose: 75 mg Pantoprazole Sodium (Protonix Iv) 40 mg IVPUSH DAILY [facility] Last Admin: 06/03/19 09:32 Dose: 40 mg Phenobarbital (Phenobarbital Liquid -) 48.6 mg GT BID [facility] Last Admin: 06/03/19 23:00 Dose: 48.6 mg Sodium Chloride ([place] Nasal [place] -) 2 spray NS BID [facility] Last Admin: 06/03/19 21:35 Dose: 2 sprays cxray pending a/p respiratory failure influenza A cannot r/o pneumonia CP/MR seizures continue tamiflu continue zosyn
[2019-06-04] MEDS: MAGNESIUM HYDROX 2400MG/30ML ORAL SUSPENSION 30 ML CUP GT SCH ×2 (09:54→21:51)
[2019-06-04] MEDS: PANTOPRAZOLE SODIUM 40 MG VIAL IVPUSH SCH (10:05)
[2019-06-04] MEDS: MULTIVIT-MINERALS ORAL LIQUID GT SCH (10:05)
[2019-06-04] MEDS: ACYCLOVIR 200 MG/5 ML LIQUID GT SCH ×2 (10:06→21:52)
[2019-06-04] MEDS: BACITRACIN 15 GM TUBE TOPICAL OINTMENT TP SCH ×2 (10:06→21:54)
[2019-06-04] MEDS: FAMOTIDINE 40 MG/5 ML ORAL SUSPENSION NR SCH ×2 (10:07→21:52)
[2019-06-04] MEDS: BACLOFEN 10 MG TABLET (FP) GT SCH ×2 (10:07→21:52)
[2019-06-04] MEDS: lamoTRIgine 100 MG TABLET PO SCH ×2 (10:07→21:52)
[2019-06-04] MEDS: LACTOBACILLUS ACIDOPHILUS 1 TABLET GT SCH (10:08)
[2019-06-04] MEDS: HEPARIN NA (PORCINE) 5,000 UNITS/ML 1ML VIAL SQ SCH ×2 (10:09→21:52)
[2019-06-04] MEDS: OSELTAMIVIR PHOSPHATE 75 MG CAPSULE PEG SCH ×2 (10:10→21:51)
[2019-06-04] MEDS: cloBAZam 10 MG TABLET GT SCH ×2 (10:10→21:52)
[2019-06-04] MEDS: PHENobarbital 20 MG/5 ML UNIT-DOSE CUP GT SCH ×2 (10:10→21:54)
[2019-06-04] MEDS: SODIUM CHLORIDE NASAL SPRAY 44 ML BOTTLE NS SCH ×2 (10:10→21:55)
--- NOTE | 2019-06-04 11:12 | PN ---
Teaching Attending Note ATTENDING PHYSICIAN STATEMENT I saw and evaluated the patient. I reviewed the resident's note and discussed the case with the resident. I agree with the resident's findings and plan as documented. SUBJECTIVE: OBJECTIVE: ASSESSMENT AND PLAN:
--- NOTE | 2019-06-04 11:12 | PN ---
Physical Exam: SUBJECTIVE: Patient seen and examined OBJECTIVE: Vital Signs Period Temp Pulse Resp BP Sys/Linares Pulse Ox Last 24 Hr 99.4 F-100.2 F 51-96 12-18 116-136/50-62 98-100 GENERAL: The patient is awake, alert, and fully oriented, in no acute distress. HEAD: Normal with no signs of trauma. EYES: PERRL, extraocular movements intact, sclera anicteric, conjunctiva clear. No ptosis. ENT: Ears normal, nares patent, oropharynx clear without exudates, moist mucous membranes. NECK: Trachea midline, full range of motion, supple. LUNGS: Breath sounds equal, clear to auscultation bilaterally, no wheezes, no crackles, no accessory muscle use. HEART: Regular rate and rhythm, S1, S2 without murmur, rub or gallop. ABDOMEN: Soft, nontender, nondistended, normoactive bowel sounds, no guarding, no rebound, no hepatosplenomegaly, no masses. EXTREMITIES: 2+ pulses, warm, well-perfused, no edema. NEUROLOGICAL: Cranial nerves II through XII grossly intact. Normal speech, gait not observed. PSYCH: Normal mood, normal affect. SKIN: Warm, dry, normal turgor, no rashes or lesions noted Laboratory Results - last 24 hr 06/03/19 06/03/19 06/04/19 12:05 21:21 05:40 WBC 9.0 RBC 3.47 L Hgb 11.9 Hct 34.8 L MCV 100.2 H MCH 34.4 H MCHC 34.3 RDW 13.6 Plt Count 146 MPV 10.6 Absolute Neuts (auto) 5.7 Neutrophils % 63.6 D Lymphocytes % 29.4 D Monocytes % 6.8 Eosinophils % 0.0 D Basophils % 0.2 Nucleated RBC % 0 Sodium Potassium Chloride Carbon Dioxide Anion Gap BUN Creatinine Est GFR (CKD-EPI)AfAm Est GFR (CKD-EPI)NonAf POC Glucometer 141 129 Random Glucose Calcium Phosphorus Magnesium Total Bilirubin AST ALT Alkaline Phosphatase Total Protein Albumin 06/04/19 05:40 WBC RBC Hgb Hct MCV MCH MCHC RDW Plt Count MPV Absolute Neuts (auto) Neutrophils % Lymphocytes % Monocytes % Eosinophils % Basophils % Nucleated RBC % Sodium 144 Potassium 3.4 L Chloride 113 H Carbon Dioxide 25 Anion Gap 6 L BUN 7.3 Creatinine 0.5 L Est GFR (CKD-EPI)AfAm 177.03 Est GFR (CKD-EPI)NonAf 152.75 POC Glucometer Random Glucose 108 H Calcium 8.4 L Phosphorus 3.4 Magnesium 2.1 Total Bilirubin 0.2 AST 40 H ALT 59 Alkaline Phosphatase 118 H Total Protein 6.4 Albumin 2.7 L Active Medications Generic Name Dose Route Start Last Admin Trade Name Freq PRN Reason Stop Dose Admin Acetaminophen 750 mg 06/02/19 14:29 06/02/19 21:20 Tylenol Oral Solution - GT 750 mg Q8H PRN Administration FEVER Acyclovir 400 mg 06/02/19 10:00 06/04/19 10:06 Zovirax Oral Suspension - GT 400 mg BID JORGE Administration Albuterol/Ipratropium 1 amp 06/02/19 00:23 06/04/19 08:25 Duoneb - NEB 1 amp QID PRN Administration WHEEZING Bacitracin 1 applic 06/02/19 10:00 06/04/19 10:06 Bacitracin - TP 1 applic BID JORGE Administration Baclofen 10 mg 06/02/19 10:00 06/04/19 10:07 Lioresal - GT 10 mg BID JORGE Administration Budesonide 1 amp 06/02/19 08:00 06/04/19 08:25 Pulmicort 0.25 Mg Nebulizer - NEB 1 amp RBID JORGE Administration Clobazam 10 mg 06/02/19 22:00 06/03/19 21:32 Onfi - GT 10 mg HS JORGE Administration Clobazam 5 mg 06/02/19 10:00 06/04/19 10:10 Onfi - GT 5 mg DAILY JORGE Administration Clonazepam 1.5 mg 06/02/19 06:15 06/04/19 06:57 Klonopin - GT 1.5 mg TID JORGE Administration Diazepam 7.5 mg 06/02/19 00:23 Diastat Rectal Gel - RC PRN PRN <Seizures> Famotidine 10 mg 06/02/19 10:00 06/04/19 10:07 Pepcid NR 10 mg BID JORGE Administration Fluticasone Propionate 2 spray 06/02/19 07:00 06/04/19 06:56 Flonase - NS 2 sprays AM JORGE Administration Heparin Sodium (Porcine) 5,000 unit 06/02/19 10:00 06/04/19 10:09 Heparin - SQ 5,000 unit BID [facility]ORGE Administration Propofol 1,000,000 mcg in 100 mls @ 1.034 mls/hr 06/02/19 02:15 06/04/19 03: 35 Diprivan - IVPB 5 mcg/kg/min TITR JORGE 1.034 mls/hr Administration Protocol 5 MCG/KG/MIN Sodium Chloride 1,000 mls @ 100 mls/hr 06/02/19 05:45 06/04/19 06:57 Normal Saline - IV 100 mls/hr ASDIR JORGE Administration Piperacillin Sod/Tazobactam 50 mls @ 100 mls/hr 06/02/19 18:00 06/04/19 09:55 Sod 3.375 gm/ Dextrose IVPB 100 mls/hr Q8H-IV JORGE Administration Protocol Lactobacillus Acidophilus 1 tab 06/02/19 10:00 06/04/19 10:08 Bacid - GT 1 tab DAILY [facility]OR[facility] Administration Lamotrigine 200 mg 06/02/19 10:00 06/04/19 10:07 Lamictal - PO 200 mg BID [facility] Administration Magnesium Hydroxide 20 ml 06/02/19 10:00 06/04/19 09:54 Milk Of Magnesia - GT 20 ml BID [facility]ORGE Administration Methylprednisolone Sodium Succinate 40 mg 06/02/19 02:45 06/04/19 10:08 Solu-Medrol - IVPUSH 40 mg Q8H-IV JORGE Administration Multivitamins/Minerals 15 ml 06/02/19 10:00 06/04/19 10:05 Certavite-Antioxidant Liquid GT 15 ml DAILY [facility]ORGE Administration Oseltamivir Phosphate 75 mg 06/02/19 03:15 06/04/19 10:10 Tamiflu - PEG 06/07/19 03:14 75 mg BID [facility]ORGE Administration Pantoprazole Sodium 40 mg 06/02/19 02:45 06/04/19 10:05 Protonix Iv IVPUSH 40 mg DAILY [facility]OR[facility] Administration Phenobarbital 48.6 mg 06/02/19 10:00 06/04/19 10:10 Phenobarbital Liquid - GT 48.6 mg BID JORGE Administration Sodium Chloride 2 spray 06/03/19 22:00 06/04/19 10:10 [place] Nasal [place] - NS 2 sprays BID JORGE Administration ASSESSMENT/PLAN: Patient remains improved, continues to attempt to wean, continue on antibiotics per ID. Weaning per pulmonary. Monitor in the ICU on the medicine service. Assessment and plan: Sepsis secondary to influenza pneumonia with potential aspiration component. He was recently admitted and treated with Zosyn to Augmentin and completed a 7- day course. This is likely secondary to exposure at his facility given the influenza positivity. We will be covering also with Tamiflu for the appropriate course. Acute hypoxic respiratory failure secondary to the aforementioned; He is intubated and sedated on the ventilator History of Epilepsy; No seizure activity noted. Continue Lamictal, Phenobarbital, Klonopin, Onfi Asthma; Nebs/steroids as per pulmonary medicine with respect to the second issue on the last MR/Cerebral palsy Functional Quadraplegia secondary to the aforementioned. History of Herpes meningoencephalitis; Is on acyclovir. Continue. Chronic constipation; Monitor for bowel movement. Is on MiraLAX in the past. If needed can give additional dose. 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 No issues with it. Nutrition: Continue current recs DVT px: Noted GI px: On home famotidine. Full Code Visit type - Emergency Visit Emergency Visit: Yes ED Registration Date: 06/01/19 Care time: The patient presented to the Emergency Department on the above date and was hospitalized for further evaluation of their emergent condition. - New Patient This patient is new to me today: No - Critical Care Critical Care patient: Yes Total Critical Care Time (in minutes): 30 Critical Care Statement: The care of this patient involved high complexity decision making to prevent further life threatening deterioration of the patient 's condition and/or to evaluate & treat vital organ system(s) failure or risk of failure.
--- NOTE | 2019-06-04 11:33 | PN ---
Progress Note (short form) - Note Progress Note: Pulm/CCM SUBJECTIVE: Patient seen and examined in the ICU. -failed PS Trial this am, RSB RR 30, TV 150 -low grade temp CXR: again poor film, rotated, maybe worsening congestion OBJECTIVE: Vital Signs Temp 99.4 F 06/04/19 06:00 Pulse 59 L 06/04/19 08:25 Resp 14 06/04/19 08:25 BP 136/58 L 06/04/19 08:00 Pulse Ox 100 06/04/19 08:25 Intake & Output 06/03/19 06/03/19 06/04/19 11:59 23:59 11:59 Intake Total 810 1312 1151.5 Output Total 900 1000 Balance -90 312 1151.5 Weight 40.37 kg 40.37 kg 40.5 kg Intake: IV 700 1212 1101.5 DIPRIVAN - 1,000,000 mcg 12 13.5 In 100 ml @ 5 MCG/KG/MIN 1.034 mls/hr IVPB TITR [facility] Rx#:[id number] Normal Saline - 1,000 ml 700 1200 1088 @ 100 mls/hr IV ASDIR [facility] Rx#:[id number] IVPB 50 100 50 Tube Feeding 60 Output: Urine 900 1000 External Catheter 900 1000 Other: Voiding Method External Catheter Incontinent Bowel Movement No No No Height 47 in Body Mass Index (BMI) 28.3 Weight Measurement Method Built in [facility] Current Medications Acetaminophen (Tylenol Oral Solution -) 750 mg GT Q8H PRN PRN Reason: FEVER Last Admin: 06/02/19 21:20 Dose: 750 mg Acyclovir (Zovirax Oral Suspension -) 400 mg GT BID [facility] Last Admin: 06/04/19 10:06 Dose: 400 mg Albuterol/Ipratropium (Duoneb -) 1 amp NEB QID PRN PRN Reason: WHEEZING Last Admin: 06/04/19 08:25 Dose: 1 amp Bacitracin (Bacitracin -) 1 applic TP BID [facility] Last Admin: 06/04/19 10:06 Dose: 1 applic Baclofen (Lioresal -) 10 mg GT BID [facility] Last Admin: 06/04/19 10:07 Dose: 10 mg Budesonide (Pulmicort 0.25 Mg Nebulizer -) 1 amp NEB RBID [facility] Last Admin: 06/04/19 08:25 Dose: 1 amp Clobazam (Onfi -) 10 mg GT HS [facility] Last Admin: 06/03/19 21:32 Dose: 10 mg Clobazam (Onfi -) 5 mg GT DAILY [facility] Last Admin: 06/04/19 10:10 Dose: 5 mg Clonazepam (Klonopin -) 1.5 mg GT TID [facility] Last Admin: 06/04/19 06:57 Dose: 1.5 mg Diazepam (Diastat Rectal Gel -) 7.5 mg RC PRN PRN PRN Reason: <Seizures> Famotidine (Pepcid) 10 mg NR BID [facility] Last Admin: 06/04/19 10:07 Dose: 10 mg Fluticasone Propionate (Flonase -) 2 spray NS AM [facility] Last Admin: 06/04/19 06:56 Dose: 2 sprays Heparin Sodium (Porcine) (Heparin -) 5,000 unit SQ BID [facility] Last Admin: 06/04/19 10:09 Dose: 5,000 unit Propofol (Diprivan -) 1,000,000 mcg in 100 mls @ 1.034 mls/hr IVPB TITR JORGE; Protocol Last Admin: 06/04/19 03:35 Dose: 5 mcg/kg/min, 1.034 mls/hr Sodium Chloride (Normal Saline -) 1,000 mls @ 100 mls/hr IV ASDIR [facility]ORGE Last Admin: 06/04/19 06:57 Dose: 100 mls/hr Piperacillin Sod/Tazobactam (Sod 3.375 gm/ Dextrose) 50 mls @ 100 mls/hr IVPB Q8H-IV JORGE; Protocol Last Admin: 06/04/19 09:55 Dose: 100 mls/hr Lactobacillus Acidophilus (Bacid -) 1 tab GT DAILY [facility] Last Admin: 06/04/19 10:08 Dose: 1 tab Lamotrigine (Lamictal -) 200 mg PO BID [facility] Last Admin: 06/04/19 10:07 Dose: 200 mg Magnesium Hydroxide (Milk Of Magnesia -) 20 ml GT BID [facility] Last Admin: 06/04/19 09:54 Dose: 20 ml Methylprednisolone Sodium Succinate (Solu-Medrol -) 40 mg IVPUSH Q8H-IV [facility] Last Admin: 06/04/19 10:08 Dose: 40 mg Multivitamins/Minerals (Certavite-Antioxidant Liquid) 15 ml GT DAILY [facility] Last Admin: 06/04/19 10:05 Dose: 15 ml Oseltamivir Phosphate (Tamiflu -) 75 mg PEG BID [facility] Stop: 06/07/19 03:14 Last Admin: 06/04/19 10:10 Dose: 75 mg Pantoprazole Sodium (Protonix Iv) 40 mg IVPUSH DAILY [facility] Last Admin: 06/04/19 10:05 Dose: 40 mg Phenobarbital (Phenobarbital Liquid -) 48.6 mg GT BID [facility] Last Admin: 06/04/19 10:10 Dose: 48.6 mg Sodium Chloride ([place] Nasal [place] -) 2 spray NS BID [facility] Last Admin: 06/04/19 10:10 Dose: 2 sprays Gen: intubated, sedated , withdrawals to noxious stimuli, cough with suctioning Heart: RRR Lung: Vented, bilateral rhonchi, no wheeze, thick copious secretions Abd: soft, nontender, mildly distended, (+) BS Ext: no edema, contracted CBC,CMP WBC 9.0 K/mm3 (4.0-10.0) 06/04/19 05:40 RBC 3.47 M/mm3 (4.00-5.60) L 06/04/19 05:40 Hgb 11.9 GM/dL (11.7-16.9) 06/04/19 05:40 Hct 34.8 % (35.4-49) L 06/04/19 05:40 MCV 100.2 fl (80-96) H 06/04/19 05:40 MCH 34.4 pg (25.7-33.7) H 06/04/19 05:40 MCHC 34.3 g/dl (32.0-35.9) 06/04/19 05:40 RDW 13.6 % (11.9-15.9) 06/04/19 05:40 Plt Count 146 K/MM3 (134-434) 06/04/19 05:40 MPV 10.6 fl (7.5-11.1) 06/04/19 05:40 Absolute Neuts (auto) 5.7 K/mm3 (1.5-8.0) 06/04/19 05:40 Neutrophils % 63.6 % (42.8-82.8) D 06/04/19 05:40 Neutrophils % (Manual) 52.5 % (42.8-82.8) D 06/02/19 05:45 Band Neutrophils % 30.3 % 06/02/19 05:45 Lymphocytes % 29.4 % (8-40) D 06/04/19 05:40 Lymphocytes % (Manual) 4.1 % (8-40) L D 06/02/19 05:45 Monocytes % 6.8 % (3.8-10.2) 06/04/19 05:40 Monocytes % (Manual) 4 % (3.8-10.2) 06/02/19 05:45 Eosinophils % 0.0 % (0-4.5) D 06/04/19 05:40 Eosinophils % (Manual) 0.0 % (0-4.5) D 06/02/19 05:45 Basophils % 0.2 % (0-2.0) 06/04/19 05:40 Basophils % (Manual) 0.0 % (0-2.0) 06/02/19 05:45 Myelocytes % (Man) 0 % (0-2) 06/02/19 05:45 Promyelocytes % (Man) 0 % (0-2) 06/02/19 05:45 Blast Cells % (Manual) 0 % (0-0) 06/02/19 05:45 Nucleated RBC % 0 % (0-0) 06/04/19 05:40 Metamyelocytes 7 % (0-2) H D 06/02/19 05:45 Hypochromia 0 06/02/19 05:45 Platelet Estimate Decreased 06/02/19 05:45 Polychromasia 0 06/02/19 05:45 Poikilocytosis 0 06/02/19 05:45 Anisocytosis 0 06/02/19 05:45 Microcytosis 0 06/02/19 05:45 Macrocytosis 0 06/02/19 05:45 Sodium 144 mmol/L (136-145) 06/04/19 05:40 Potassium 3.4 mmol/L (3.5-5.1) L 06/04/19 05:40 Chloride 113 mmol/L (98-107) H 06/04/19 05:40 Carbon Dioxide 25 mmol/L (21-32) 06/04/19 05:40 Anion Gap 6 MMOL/L (8-16) L 06/04/19 05:40 BUN 7.3 mg/dL (7-18) 06/04/19 05:40 Creatinine 0.5 mg/dL (0.55-1.3) L 06/04/19 05:40 Est GFR (CKD-EPI)AfAm 177.03 06/04/19 05:40 Est GFR (CKD-EPI)NonAf 152.75 06/04/19 05:40 POC Glucometer 129 UNITS (80-120) 06/03/19 21:21 Random Glucose 108 mg/dL (74-106) H 06/04/19 05:40 Lactic Acid 1.5 mmol/L (0.4-2.0) 06/02/19 04:23 Calcium 8.4 mg/dL (8.5-10.1) L 06/04/19 05:40 Phosphorus 3.4 mg/dL (2.5-4.9) 06/04/19 05:40 Magnesium 2.1 mg/dL (1.8-2.4) 06/04/19 05:40 Total Bilirubin 0.2 mg/dL (0.2-1) 06/04/19 05:40 AST 40 U/L (15-37) H 06/04/19 05:40 ALT 59 U/L (13-61) 06/04/19 05:40 Alkaline Phosphatase 118 U/L (45-117) H 06/04/19 05:40 Troponin I < 0.02 ng/ml (0.00-0.05) 06/01/19 19:30 B-Natriuretic Peptide 449.0 pg/ml (5-125) H 06/02/19 05:45 Total Protein 6.4 g/dl (6.4-8.2) 06/04/19 05:40 Albumin 2.7 g/dl (3.4-5.0) L 06/04/19 05:40 Microbiology 06/01/19 19:50 Blood - Peripheral Venous Blood Culture - Preliminary NO GROWTH OBTAINED AFTER 48 HOURS, INCUBATION TO CONTINUE FOR 3 DAYS. 06/01/19 19:30 Blood - Peripheral Venous Blood Culture - Preliminary NO GROWTH OBTAINED AFTER 48 HOURS, INCUBATION TO CONTINUE FOR 3 DAYS. 06/02/19 12:55 Urine For Antigen Detection Legionella Antigen - Final 06/02/19 12:55 Urine For Antigen Detection Streptococcus pneumoniae Antigen (M - Final 06/02/19 04:30 Sputum - Endotrachea Suction/Ventilator Gram Stain - Final 06/02/19 04:30 Sputum - Endotrachea Suction/Ventilator Sputum Culture - Preliminary NORMAL RESPIRATORY CHENCHO 06/01/19 19:30 Urine - Urine Clean Catch Urine Culture - Final NO GROWTH OBTAINED ASSESSMENT AND PLAN: Acute Hypoxic Respiratory Failure Influenza A Pneumonia Sepsis Lactic Acidosis Cerebral Palsy Mental Retardation Seizure Disorder GERD - Still difficult to interpret CXR due to kyphosis/positioning. getting adequate TV - continue tamiflu, antibiotics - f/u cultures - taper Fio2 to keep SpO2 >90% - empiric medrol - inhaled bronchodilators - IVF - monitor urine output, creatinine - spontaneous breathing trials as tolerated, failing currently due poor inspiratory effort (TV 150) - DVT/GI prophylaxis - Requires continued ICU monitoring Juju TORRES [id number] [id number] CCT
[2019-06-05] MEDS ORDERED: DEXTROSE 5%-WATER - 50 ML IVPB ONE ×3 (00:59→15:15)
[2019-06-05] MEDS ORDERED: PIPERACILLIN/TAZOBACTAM 3.375 GM VIAL IVPB ONE ×3 (00:59→15:15)
[2019-06-05] MEDS: PIPERACILLIN/TAZOB 3.375 GM 3.375 GM in DEXTROSE 5%-WATER - 50 ML IVPB SCH ×3 (01:06→18:17)
[2019-06-05] MEDS: methylPREDNISolone NA SUCC 40 MG/1 ML VIAL IVPUSH SCH ×3 (01:06→18:17)
[2019-06-05] MEDS: SODIUM CHLORIDE 1,000 ML IV SCH ×2 (01:30→06:20)
[2019-06-05] MEDS: clonazePAM 0.5 MG TABLET GT SCH ×3 (05:33→22:45)
[2019-06-05] MEDS: FLUTICASONE PROP 0.05% 16 GM NASAL SPRAY NS SCH ×2 (05:35→06:20)
[2019-06-05 06:12] LABS: HEMATOCRIT 33.7 % (35.4-49); HEMOGLOBIN 11.6 GM/dL (11.7-16.9); MCH 34.4 pg (25.7-33.7); MCHC 34.4 g/dl (32.0-35.9); MEAN CELL VOLUME 100.2 fl (80-96); MEAN PLT VOLUME 10.6 fl (7.5-11.1); PLATELET COUNT 143 K/MM3 (134-434); RBC 3.36 M/mm3 (4.00-5.60); RDW 13.6 % (11.9-15.9); WHITE BLOOD COUNT 6.5 K/mm3 (4.0-10.0)
[2019-06-05] MEDS: PROPOFOL 1,000,000 MCG/100 ML VIAL IVPB SCH (06:20)
[2019-06-05 06:38] LABS: BLOOD UREA NITROGEN 7.3 mg/dL (7-18); CALCIUM 7.9 mg/dL (8.5-10.1); CREATININE 0.5 mg/dL (0.55-1.3); PHOSPHOROUS 3.5 mg/dL (2.5-4.9); POTASSIUM 3.1 mmol/L (3.5-5.1)
[2019-06-05] MEDS ORDERED: KCL 10 MEQ IVPB 10 MEQ/100 ML INFUS.BAG IVPB SCH (06:45)
[2019-06-05] MEDS ORDERED: POTASSIUM CHLORIDE ORAL LIQUID 20 MEQ/15 ML PEG ONE (06:58)
[2019-06-05] MEDS: ALBUTEROL SO4 2.5/IPRATROPIUM 0.5 INH SOL 3 ML VIAL.NEB. NEB PRN ×2 (08:00→21:15)
[2019-06-05] MEDS: BUDESONIDE 0.25 MG/2ML INH SUSP VIAL NEB SCH ×2 (08:00→21:05)
--- NOTE | 2019-06-05 09:30 | PN ---
Physical Exam: SUBJECTIVE: Patient seen and examined. No acute events overnight. Still intubated. OBJECTIVE: Vital Signs Period Temp Pulse Resp BP Sys/Linares Pulse Ox Last 24 Hr 98.7 F-99.3 F 46-64 14-18 116-142/53-77 95-100 GENERAL: intubated, awake, alert, NAD HEAD: Normal with no signs of trauma. EYES: PERRL, no scleral icterus ENT: dry mucous membranes, ET tube in place NECK: Trachea midline, full range of motion, supple. LUNGS: coarse breath sounds at bases, mechanically ventilated HEART: tachycardic ABDOMEN: soft, NT, ND, no guarding. PEG tube in place EXTREMITIES: 2+ pulses, warm, well-perfused, no edema. contracted upper and lower extremities NEUROLOGICAL: normal gag reflex PSYCH: Normal mood, normal affect. SKIN: Warm, dry, normal turgor Laboratory Results - last 24 hr 06/04/19 06/04/19 06/05/19 13:26 21:45 05:30 WBC 6.5 RBC 3.36 L Hgb 11.6 L Hct 33.7 L MCV 100.2 H MCH 34.4 H MCHC 34.4 RDW 13.6 Plt Count 143 MPV 10.6 Sodium Potassium Chloride Carbon Dioxide Anion Gap BUN Creatinine Est GFR (CKD-EPI)AfAm Est GFR (CKD-EPI)NonAf POC Glucometer 132 127 Random Glucose Calcium Phosphorus Magnesium 06/05/19 05:30 WBC RBC Hgb Hct MCV MCH MCHC RDW Plt Count MPV Sodium 144 Potassium 3.1 L Chloride 113 H Carbon Dioxide 24 Anion Gap 6 L BUN 7.3 Creatinine 0.5 L Est GFR (CKD-EPI)AfAm 177.03 Est GFR (CKD-EPI)NonAf 152.75 POC Glucometer Random Glucose 131 H Calcium 7.9 L Phosphorus 3.5 Magnesium 2.0 Active Medications Generic Name Dose Route Start Last Admin Trade Name Freq PRN Reason Stop Dose Admin Acetaminophen 750 mg 06/02/19 14:29 06/02/19 21:20 Tylenol Oral Solution - GT 750 mg Q8H PRN Administration FEVER Acyclovir 400 mg 06/02/19 10:00 06/04/19 21:52 Zovirax Oral Suspension - GT 400 mg BID JORGE Administration Albuterol/Ipratropium 1 amp 06/02/19 00:23 06/04/19 08:25 Duoneb - NEB 1 amp QID PRN Administration WHEEZING Bacitracin 1 applic 06/02/19 10:00 06/04/19 21:54 Bacitracin - TP 1 applic BID JORGE Administration Baclofen 10 mg 06/02/19 10:00 06/04/19 21:52 Lioresal - GT 10 mg BID JORGE Administration Budesonide 1 amp 06/02/19 08:00 06/04/19 20:30 Pulmicort 0.25 Mg Nebulizer - NEB 1 amp RBID JORGE Administration Clobazam 10 mg 06/02/19 22:00 06/04/19 21:52 Onfi - GT 10 mg HS JORGE Administration Clobazam 5 mg 06/02/19 10:00 06/04/19 10:10 Onfi - GT 5 mg DAILY JORGE Administration Clonazepam 1.5 mg 06/02/19 06:15 06/05/19 05:33 Klonopin - GT 1.5 mg TID JORGE Administration Famotidine 10 mg 06/02/19 10:00 06/04/19 21:52 Pepcid NR 10 mg BID JORGE Administration Fluticasone Propionate 2 spray 06/02/19 07:00 06/05/19 06:20 Flonase - NS Not Given AM JOREG Heparin Sodium (Porcine) 5,000 unit 06/02/19 10:00 06/04/19 21:52 Heparin - SQ 5,000 unit BID JORGE Administration Propofol 1,000,000 mcg in 100 mls @ 1.034 mls/hr 06/02/19 02:15 06/05/19 06: 20 Diprivan - IVPB Not Given TITR JORGE Protocol 5 MCG/KG/MIN Sodium Chloride 1,000 mls @ 100 mls/hr 06/02/19 05:45 06/05/19 06:20 Normal Saline - IV Not Given ASDIR JORGE Piperacillin Sod/Tazobactam 50 mls @ 100 mls/hr 06/02/19 18:00 06/05/19 01:06 Sod 3.375 gm/ Dextrose IVPB 100 mls/hr Q8H-IV JORGE Administration Protocol Lactobacillus Acidophilus 1 tab 06/02/19 10:00 06/04/19 10:08 Bacid - GT 1 tab DAILY JORGE Administration Lamotrigine 200 mg 06/02/19 10:00 06/04/19 21:52 Lamictal - PO 200 mg BID JORGE Administration Magnesium Hydroxide 20 ml 06/02/19 10:00 06/04/19 21:51 Milk Of Magnesia - GT 20 ml BID JORGE Administration Methylprednisolone Sodium Succinate 40 mg 06/02/19 02:45 06/05/19 01:06 Solu-Medrol - IVPUSH 40 mg Q8H-IV JORGE Administration Multivitamins/Minerals 15 ml 06/02/19 10:00 06/04/19 10:05 Certavite-Antioxidant Liquid GT 15 ml DAILY JORGE Administration Oseltamivir Phosphate 75 mg 06/02/19 03:15 06/04/19 21:51 Tamiflu - PEG 06/07/19 03:14 75 mg BID JORGE Administration Pantoprazole Sodium 40 mg 06/02/19 02:45 06/04/19 10:05 Protonix Iv IVPUSH 40 mg DAILY JORGE Administration Phenobarbital 48.6 mg 06/02/19 10:00 06/04/19 21:54 Phenobarbital Liquid - GT 48.6 mg BID JORGE Administration Sodium Chloride 2 spray 06/03/19 22:00 06/04/19 21:55 [place] Nasal [place] - NS 2 sprays BID JORGE Administration ASSESSMENT/PLAN: 24 y/o/m [place] resident with PMHx significant of CP, epilepsy, herpes encephalitis, GERD, and aspiration pneumonia. He was sent to the ER after he developed a non productive cough and was noticed to be warm to the touch, crying frequently, and short of breath. Was admitted for management of sepsis 2/ 2 pneumonia. #Sepsis 2/2 Pneumonia and Influenza - left basilar retrocardiac infiltrate noted on repeat CXR. Repeat CXR showing possible developing congestion, poor film - WBC resolved - Influenza A positive, continue Tamiflu 75mg BID via PEG - Lactic acid normalized - Blood, urine cx, urine for Strep/Legionella negative to date - Sputum gram stain growing Pseudomonas - quantity few - Vanc/Zosyn given in ED - Continue Zosyn - ID consulted (Dr. Rosenthal) #Hypoxic respiratory distress - Respiratory distress likely 2/2 to pneumonia - Patient has been difficult to extubate due to poor inspiratory effort and poor tidal volume levels - repeat ABG on 06/02 with improvement -> pH 7.4, pO2 111, PCO2 44.3 - CTA negative for PE, showing almost complete atelectasis of left lung - Continue home Pulmicort nebs - Solu-medrol 40mg IV Q8hr #Hx of seizures - Currently asymptomatic - Continue home anti-seizure meds #Polycythemia - H&H 17.4/51.1 on admission, baseline seems to be around 13/40 as per previous records, may be relative due to stress - repeat CBCs with improvement. H&H now at 11.6/33.7 #Transaminitis with elevated ALP - Patient has had elevated liver enzymes upon previous admissions - Likely 2/2 to medication side effect #Hx of herpes encephalitis - Continue acyclovir 400 BID #DVT ppx - Heparin SQ #FEN - NS @100mls/hr - Tube feeds started through PEG tube - Hypokalemia, repleted - Monitor and replete lytes as needed #Dispo - continue weaning trials, extubate as appropriate per ICU team Visit type - Emergency Visit Emergency Visit: Yes ED Registration Date: 06/01/19 Care time: The patient presented to the Emergency Department on the above date and was hospitalized for further evaluation of their emergent condition. - New Patient This patient is new to me today: No - Critical Care Critical Care patient: Yes Total Critical Care Time (in minutes): 36 Critical Care Statement: The care of this patient involved high complexity decision making to prevent further life threatening deterioration of the patient 's condition and/or to evaluate & treat vital organ system(s) failure or risk of failure. ATTENDING PHYSICIAN STATEMENT I saw and evaluated the patient. I reviewed the resident's note and discussed the case with the resident. I agree with the resident's findings and plan as documented. SUBJECTIVE: OBJECTIVE: ASSESSMENT AND PLAN:
[2019-06-05] MEDS: PANTOPRAZOLE SODIUM 40 MG VIAL IVPUSH SCH (09:31)
[2019-06-05] MEDS: LACTOBACILLUS ACIDOPHILUS 1 TABLET GT SCH (09:31)
[2019-06-05] MEDS: cloBAZam 10 MG TABLET GT SCH ×2 (09:32→22:45)
[2019-06-05] MEDS: OSELTAMIVIR PHOSPHATE 75 MG CAPSULE PEG SCH ×2 (09:34→22:45)
[2019-06-05] MEDS: HEPARIN NA (PORCINE) 5,000 UNITS/ML 1ML VIAL SQ SCH ×2 (09:34→22:45)
--- NOTE | 2019-06-05 09:53 | PN ---
Progress Note (short form) - Note Progress Note: intubated fiO2 40% Vital Signs Period Temp Pulse Resp BP Sys/Linares Pulse Ox Last 24 Hr 98.7 F-99.3 F 46-64 14-18 116-142/53-77 95-100 cor-rrr lungs decreased bs at bses abd soft,nt ext no edema CBC, BMP 06/05/19 05:30 06/05/19 05:30 Microbiology 06/02/19 04:30 Sputum - Endotrachea Suction/Ventilator Gram Stain - Final 06/02/19 04:30 Sputum - Endotrachea Suction/Ventilator Sputum Culture - Preliminary Pseudomonas Aeruginosa 06/01/19 19:50 Blood - Peripheral Venous Blood Culture - Preliminary NO GROWTH OBTAINED AFTER 72 HOURS, INCUBATION TO CONTINUE FOR 2 DAYS. 06/01/19 19:30 Blood - Peripheral Venous Blood Culture - Preliminary NO GROWTH OBTAINED AFTER 72 HOURS, INCUBATION TO CONTINUE FOR 2 DAYS. 06/02/19 12:55 Urine For Antigen Detection Legionella Antigen - Final 06/02/19 12:55 Urine For Antigen Detection Streptococcus pneumoniae Antigen (M - Final 06/01/19 19:30 Urine - Urine Clean Catch Urine Culture - Final NO GROWTH OBTAINED cxray worsening atelectasis right lung?? a/p respiratory failure influenza A cannot r/o pneumonia-suspect worsening atectasis- CP/MR seizures continue tamiflu continue zosyn pulmonary f/u -suspect atelectasis
--- NOTE | 2019-06-05 10:18 | PN ---
Progress Note (short form) - Note Progress Note: Progress Notes Pulm/CCM Pt seen and examined in the ICU. Psuedomonas PNA. Remains with significant Lt lung opacity. C/f worsening PNA+/- obstruction+/- atelectasis. Suctioned for thick blood-tinged secretions. Active Medications Acetaminophen (Tylenol Oral Solution -) 750 mg GT Q8H PRN PRN Reason: FEVER Last Admin: 06/02/19 21:20 Dose: 750 mg Acyclovir (Zovirax Oral Suspension -) 400 mg GT BID [facility] Last Admin: 06/04/19 21:52 Dose: 400 mg Albuterol/Ipratropium (Duoneb -) 1 amp NEB QID PRN PRN Reason: WHEEZING Last Admin: 06/05/19 08:00 Dose: 1 amp Bacitracin (Bacitracin -) 1 applic TP BID [facility] Last Admin: 06/04/19 21:54 Dose: 1 applic Baclofen (Lioresal -) 10 mg GT BID [facility] Last Admin: 06/04/19 21:52 Dose: 10 mg Budesonide (Pulmicort 0.25 Mg Nebulizer -) 1 amp NEB RBID [facility] Last Admin: 06/04/19 20:30 Dose: 1 amp Clobazam (Onfi -) 10 mg GT HS [facility] Last Admin: 06/04/19 21:52 Dose: 10 mg Clobazam (Onfi -) 5 mg GT DAILY [facility] Last Admin: 06/05/19 09:32 Dose: 5 mg Clonazepam (Klonopin -) 1.5 mg GT TID [facility] Last Admin: 06/05/19 05:33 Dose: 1.5 mg Famotidine (Pepcid) 10 mg NR BID [facility] Last Admin: 06/04/19 21:52 Dose: 10 mg Fluticasone Propionate (Flonase -) 2 spray NS AM [facility] Last Admin: 06/05/19 06:20 Dose: Not Given Heparin Sodium (Porcine) (Heparin -) 5,000 unit SQ BID [facility] Last Admin: 06/05/19 09:34 Dose: 5,000 unit Propofol (Diprivan -) 1,000,000 mcg in 100 mls @ 1.034 mls/hr IVPB TITR JORGE; Protocol Last Admin: 06/05/19 06:20 Dose: Not Given Sodium Chloride (Normal Saline -) 1,000 mls @ 100 mls/hr IV ASDIR [facility] Last Admin: 06/05/19 06:20 Dose: Not Given Piperacillin Sod/Tazobactam (Sod 3.375 gm/ Dextrose) 50 mls @ 100 mls/hr IVPB Q8H-IV JORGE; Protocol Last Admin: 06/05/19 09:30 Dose: 100 mls/hr Lactobacillus Acidophilus (Bacid -) 1 tab GT DAILY [facility] Last Admin: 06/05/19 09:31 Dose: 1 tab Lamotrigine (Lamictal -) 200 mg PO BID [facility] Last Admin: 06/04/19 21:52 Dose: 200 mg Magnesium Hydroxide (Milk Of Magnesia -) 20 ml GT BID [facility] Last Admin: 06/04/19 21:51 Dose: 20 ml Methylprednisolone Sodium Succinate (Solu-Medrol -) 40 mg IVPUSH Q8H-IV [facility] Last Admin: 06/05/19 09:31 Dose: 40 mg Multivitamins/Minerals (Certavite-Antioxidant Liquid) 15 ml GT DAILY [facility] Last Admin: 06/04/19 10:05 Dose: 15 ml Oseltamivir Phosphate (Tamiflu -) 75 mg PEG BID [facility] Stop: 06/07/19 03:14 Last Admin: 06/05/19 09:34 Dose: 75 mg Pantoprazole Sodium (Protonix Iv) 40 mg IVPUSH DAILY [facility] Last Admin: 06/05/19 09:31 Dose: 40 mg Phenobarbital (Phenobarbital Liquid -) 48.6 mg GT BID [facility] Last Admin: 06/04/19 21:54 Dose: 48.6 mg Sodium Chloride ([place] Nasal [place] -) 2 spray NS BID [facility] Last Admin: 06/04/19 21:55 Dose: 2 sprays Vital Signs Period Temp Pulse Resp BP Sys/Linares Pulse Ox Last 24 Hr 98.7 F-99.3 F 46-64 14-18 116-142/53-77 95-100 Intake & Output 06/02/19 06/03/19 06/04/19 06/05/19 23:59 23:59 23:59 23:59 Intake Total 2505 2122 2625.0 1868 Output Total 600 1900 2000 500 Balance 1905 222 625.0 1368 Weight 40.37 kg 40.37 kg 40.5 kg 40.455 kg Gen: intubated, sedated , withdrawals to noxious stimuli, spasmodic cough with suctioning Heart: RRR Lung: Vented, bilateral rhonchi, no wheeze, thick copious secretions Abd: soft, nontender, mildly distended, (+) BS Ext: no edema, contracted CBC,CMP WBC 6.5 K/mm3 (4.0-10.0) 06/05/19 05:30 RBC 3.36 M/mm3 (4.00-5.60) L 06/05/19 05:30 Hgb 11.6 GM/dL (11.7-16.9) L 06/05/19 05:30 Hct 33.7 % (35.4-49) L 06/05/19 05:30 MCV 100.2 fl (80-96) H 06/05/19 05:30 MCH 34.4 pg (25.7-33.7) H 06/05/19 05:30 MCHC 34.4 g/dl (32.0-35.9) 06/05/19 05:30 RDW 13.6 % (11.9-15.9) 06/05/19 05:30 Plt Count 143 K/MM3 (134-434) 06/05/19 05:30 MPV 10.6 fl (7.5-11.1) 06/05/19 05:30 Absolute Neuts (auto) 5.7 K/mm3 (1.5-8.0) 06/04/19 05:40 Neutrophils % 63.6 % (42.8-82.8) D 06/04/19 05:40 Neutrophils % (Manual) 52.5 % (42.8-82.8) D 06/02/19 05:45 Band Neutrophils % 30.3 % 06/02/19 05:45 Lymphocytes % 29.4 % (8-40) D 06/04/19 05:40 Lymphocytes % (Manual) 4.1 % (8-40) L D 06/02/19 05:45 Monocytes % 6.8 % (3.8-10.2) 06/04/19 05:40 Monocytes % (Manual) 4 % (3.8-10.2) 06/02/19 05:45 Eosinophils % 0.0 % (0-4.5) D 06/04/19 05:40 Eosinophils % (Manual) 0.0 % (0-4.5) D 06/02/19 05:45 Basophils % 0.2 % (0-2.0) 06/04/19 05:40 Basophils % (Manual) 0.0 % (0-2.0) 06/02/19 05:45 Myelocytes % (Man) 0 % (0-2) 06/02/19 05:45 Promyelocytes % (Man) 0 % (0-2) 06/02/19 05:45 Blast Cells % (Manual) 0 % (0-0) 06/02/19 05:45 Nucleated RBC % 0 % (0-0) 06/04/19 05:40 Metamyelocytes 7 % (0-2) H D 06/02/19 05:45 Hypochromia 0 06/02/19 05:45 Platelet Estimate Decreased 06/02/19 05:45 Polychromasia 0 06/02/19 05:45 Poikilocytosis 0 06/02/19 05:45 Anisocytosis 0 06/02/19 05:45 Microcytosis 0 06/02/19 05:45 Macrocytosis 0 06/02/19 05:45 Sodium 144 mmol/L (136-145) 06/05/19 05:30 Potassium 3.1 mmol/L (3.5-5.1) L 06/05/19 05:30 Chloride 113 mmol/L (98-107) H 06/05/19 05:30 Carbon Dioxide 24 mmol/L (21-32) 06/05/19 05:30 Anion Gap 6 MMOL/L (8-16) L 06/05/19 05:30 BUN 7.3 mg/dL (7-18) 06/05/19 05:30 Creatinine 0.5 mg/dL (0.55-1.3) L 06/05/19 05:30 Est GFR (CKD-EPI)AfAm 177.03 06/05/19 05:30 Est GFR (CKD-EPI)NonAf 152.75 06/05/19 05:30 POC Glucometer 127 UNITS (80-120) 06/04/19 21:45 Random Glucose 131 mg/dL (74-106) H 06/05/19 05:30 Lactic Acid 1.5 mmol/L (0.4-2.0) 06/02/19 04:23 Calcium 7.9 mg/dL (8.5-10.1) L 06/05/19 05:30 Phosphorus 3.5 mg/dL (2.5-4.9) 06/05/19 05:30 Magnesium 2.0 mg/dL (1.8-2.4) 06/05/19 05:30 Total Bilirubin 0.2 mg/dL (0.2-1) 06/04/19 05:40 AST 40 U/L (15-37) H 06/04/19 05:40 ALT 59 U/L (13-61) 06/04/19 05:40 Alkaline Phosphatase 118 U/L (45-117) H 06/04/19 05:40 Troponin I < 0.02 ng/ml (0.00-0.05) 06/01/19 19:30 B-Natriuretic Peptide 449.0 pg/ml (5-125) H 06/02/19 05:45 Total Protein 6.4 g/dl (6.4-8.2) 06/04/19 05:40 Albumin 2.7 g/dl (3.4-5.0) L 06/04/19 05:40 Microbiology 06/01/19 19:50 Blood - Peripheral Venous Blood Culture - Preliminary NO GROWTH OBTAINED AFTER 48 HOURS, INCUBATION TO CONTINUE FOR 3 DAYS. 06/01/19 19:30 Blood - Peripheral Venous Blood Culture - Preliminary NO GROWTH OBTAINED AFTER 48 HOURS, INCUBATION TO CONTINUE FOR 3 DAYS. 06/02/19 12:55 Urine For Antigen Detection Legionella Antigen - Final 06/02/19 12:55 Urine For Antigen Detection Streptococcus pneumoniae Antigen (M - Final 06/02/19 04:30 Sputum - Endotrachea Suction/Ventilator Gram Stain - Final 06/02/19 04:30 Sputum - Endotrachea Suction/Ventilator Sputum Culture - Preliminary NORMAL RESPIRATORY CHENCHO 06/01/19 19:30 Urine - Urine Clean Catch Urine Culture - Final NO GROWTH OBTAINED ASSESSMENT AND PLAN: Acute Hypoxic Respiratory Failure Influenza A Pneumonia Sepsis Lactic Acidosis Cerebral Palsy Mental Retardation Seizure Disorder GERD -Aggressive pulm toilet - continue tamiflu, antibiotics - taper Fio2 to keep SpO2 >90% - empiric medrol - inhaled bronchodilators - IVF - monitor urine output, creatinine - spontaneous breathing trials as tolerated, failing currently due poor inspiratory effort (TV 150) -Consider bronch - DVT/GI prophylaxis - Requires continued ICU monitoring Shelby Javier, ACNP Pulm/CCM
[2019-06-05] MEDS ORDERED: PT OWN MED DRAWER 7, Y5N ONE ×3 (11:18→18:20)
[2019-06-05] MEDS: MULTIVIT-MINERALS ORAL LIQUID GT SCH (11:25)
[2019-06-05] MEDS: BACITRACIN 15 GM TUBE TOPICAL OINTMENT TP SCH ×2 (11:25→22:45)
[2019-06-05] MEDS: lamoTRIgine 100 MG TABLET PO SCH ×2 (11:26→22:45)
[2019-06-05] MEDS: BACLOFEN 10 MG TABLET (FP) GT SCH ×2 (11:27→22:45)
[2019-06-05] MEDS: MAGNESIUM HYDROX 2400MG/30ML ORAL SUSPENSION 30 ML CUP GT SCH ×2 (11:27→22:45)
[2019-06-05] MEDS: SODIUM CHLORIDE NASAL SPRAY 44 ML BOTTLE NS SCH ×2 (11:27→22:45)
[2019-06-05] MEDS: PHENobarbital 20 MG/5 ML UNIT-DOSE CUP GT SCH ×2 (11:27→22:45)
[2019-06-05] MEDS: ACETAMINOPHEN 650 MG/20.3 ML ORAL SOLUTION (CUPS) GT PRN (12:07)
[2019-06-05] MEDS: ACYCLOVIR 200 MG/5 ML LIQUID GT SCH ×2 (13:04→22:45)
[2019-06-05] MEDS: FAMOTIDINE 40 MG/5 ML ORAL SUSPENSION NR SCH ×2 (13:05→22:45)
--- NOTE | 2019-06-05 13:53 | PN ---
Teaching Attending Note Name of Resident: Halima Camacho ATTENDING PHYSICIAN STATEMENT I saw and evaluated the patient. I reviewed the resident's note and discussed the case with the resident. I agree with the resident's findings and plan as documented. Seen and examined; please see resident note for further historical information. I personally verified all alvarez historical information and exam findings. Personally interpreted all imaging and diagnostics and reviewed appropriate consults. I reviewed all labs and vital signs as per resident note and EMR as documented. I agree with the above assessment and plan unless supplemented by myself in the following. Failed extubation, chest x-ray with potentially increased markings that may be secondary to atelectasis versus overexposure. Discussed at length with infectious disease service and also reviewed images with him. We will go ahead and continue the current antibiotics and defer adjusting vent settings to the pulmonary critical care service. 10 item review of systems completed and is negative aside from as discussed in the subjective data in my own/the resident documentation. VS, labs, imaging reviewed Intubated and sedated on ventillator resting in bed, vent settings per flowsheet ET Tube in place; IV access noted with no apparent surrounding cellulitis RRR s1/2 no mgr Normal muscle tone, moves all 5 extremities with normal apparent strength Neck is supple, trachea midline, no ed[place] LN Lungs CTAB with sym expansion NT ND +BS no [place] organomegaly CN2-12 wnl; no FND but limited given clinical circumstances. NC AT EOMI PERRLA Not agitated, cannot complete full psych assessment No skin breakdown or rashes noted Chest x-ray personally reviewed, can consider further imaging if clinically not improved. Assessment and plan: Patient remains improved, continues to attempt to wean, continue on antibiotics per ID. Weaning per pulmonary. Monitor in the ICU on the medicine service. Problems include: -Sepsis secondary to influenza pneumonia with potential aspiration component. Increased lung markings noted, continue with RT modifications and vent adjustments, wean as tolerated. -Acute hypoxic respiratory failure secondary to the aforementioned; He is intubated and sedated on the ventilator -History of Epilepsy; No seizure activity noted. Continue Lamictal, Phenobarbital, Klonopin, Onfi -Asthma; Nebs/steroids as per pulmonary medicine with respect to the second issue on the last -MR/Cerebral palsy -Functional Quadraplegia secondary to the aforementioned. -History of Herpes meningoencephalitis; Is on acyclovir. Continue. -Chronic constipation; Monitor for bowel movement. Is on MiraLAX in the past. If needed can give additional dose. 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 No issues with it. Nutrition: Continue current recs DVT px: Noted GI px: On home famotidine. Full Code Guarded Prognosis
[2019-06-06] MEDS ORDERED: DEXTROSE 5%-WATER - 50 ML IVPB ONE ×3 (01:26→16:48)
[2019-06-06] MEDS ORDERED: PIPERACILLIN/TAZOBACTAM 3.375 GM VIAL IVPB ONE ×3 (01:26→16:48)
[2019-06-06] MEDS: PIPERACILLIN/TAZOB 3.375 GM 3.375 GM in DEXTROSE 5%-WATER - 50 ML IVPB SCH ×3 (02:16→17:00)
[2019-06-06] MEDS: methylPREDNISolone NA SUCC 40 MG/1 ML VIAL IVPUSH SCH ×3 (02:16→17:00)
[2019-06-06] MEDS: PROPOFOL 1,000,000 MCG/100 ML VIAL IVPB SCH ×2 (02:42→13:42)
[2019-06-06] MEDS: SODIUM CHLORIDE 1,000 ML IV SCH (05:52)
[2019-06-06] MEDS: ACETAMINOPHEN 650 MG/20.3 ML ORAL SOLUTION (CUPS) GT PRN ×2 (05:54→13:18)
[2019-06-06] MEDS: clonazePAM 0.5 MG TABLET GT SCH ×3 (05:55→21:34)
[2019-06-06] MEDS: FLUTICASONE PROP 0.05% 16 GM NASAL SPRAY NS SCH (07:00)
[2019-06-06] MEDS: BUDESONIDE 0.25 MG/2ML INH SUSP VIAL NEB SCH ×2 (08:00→20:52)
[2019-06-06] MEDS ORDERED: KCL 10 MEQ IVPB 10 MEQ/100 ML INFUS.BAG IVPB SCH ×2 (08:00→08:30)
--- NOTE | 2019-06-06 08:00 | PN ---
Physical Exam: SUBJECTIVE: Patient seen and examined BETH patient at baseline AAO X0. OBJECTIVE: Vital Signs Period Temp Pulse Resp BP Sys/Linares Pulse Ox Last 24 Hr 98.5 F-99.9 F 46-103 14-22 118-163/49-83 96-100 GENERAL: The patient is awake and alert, in no acute distress. HEAD: Microcephalic with no signs of trauma. EYES: PERRL, extraocular movements intact ENT: Ears normal, nares patent NECK: Trachea midline, full range of motion, supple LUNGS: On ventilator, CTA b/l HEART: Regular rate and rhythm, S1, S2 without murmur, rub or gallop ABDOMEN: Soft, nontender, nondistended, PEG in LUQ EXTREMITIES: 2+ pulses, warm, well-perfused, diffusely contracted NEUROLOGICAL: Unable to assess SKIN: Warm, dry Active Medications Generic Name Dose Route Start Last Admin Trade Name Freq PRN Reason Stop Dose Admin Acetaminophen 750 mg 06/02/19 14:29 06/06/19 05:54 Tylenol Oral Solution - GT 750 mg Q8H PRN Administration FEVER Acyclovir 400 mg 06/02/19 10:00 06/05/19 22:45 Zovirax Oral Suspension - GT 400 mg BID JORGE Administration Albuterol/Ipratropium 1 amp 06/02/19 00:23 06/05/19 21:15 Duoneb - NEB 1 amp QID PRN Administration WHEEZING Bacitracin 1 applic 06/02/19 10:00 06/05/19 22:45 Bacitracin - TP 1 applic BID JORGE Administration Baclofen 10 mg 06/02/19 10:00 06/05/19 22:45 Lioresal - GT 10 mg BID JORGE Administration Budesonide 1 amp 06/02/19 08:00 06/05/19 21:05 Pulmicort 0.25 Mg Nebulizer - NEB 1 amp RBID JORGE Administration Clobazam 10 mg 06/02/19 22:00 06/05/19 22:45 Onfi - GT 10 mg HS JORGE Administration Clobazam 5 mg 06/02/19 10:00 06/05/19 09:32 Onfi - GT 5 mg DAILY JORGE Administration Clonazepam 1.5 mg 06/02/19 06:15 06/06/19 05:55 Klonopin - GT 1.5 mg TID JORGE Administration Famotidine 10 mg 06/02/19 10:00 06/05/19 22:45 Pepcid NR 10 mg BID JORGE Administration Fluticasone Propionate 2 spray 06/02/19 07:00 06/05/19 06:20 Flonase - NS Not Given AM JORGE Heparin Sodium (Porcine) 5,000 unit 06/02/19 10:00 06/05/19 22:45 Heparin - SQ 5,000 unit BID JORGE Administration Propofol 1,000,000 mcg in 100 mls @ 1.034 mls/hr 06/02/19 02:15 06/06/19 02: 42 Diprivan - IVPB 10 mcg/kg/min TITR JORGE 2.068 mls/hr Administration Protocol 5 MCG/KG/MIN Sodium Chloride 1,000 mls @ 100 mls/hr 06/02/19 05:45 06/06/19 05:52 Normal Saline - IV 100 mls/hr ASDIR JORGE Administration Piperacillin Sod/Tazobactam 50 mls @ 100 mls/hr 06/02/19 18:00 06/06/19 02:16 Sod 3.375 gm/ Dextrose IVPB 100 mls/hr Q8H-IV JORGE Administration Protocol Potassium Chloride 10 meq in 100 mls @ 100 mls/hr 06/06/19 08:00 Potassium Chloride 10 Meq Premix Ivpb - IVPB 06/06/19 08:59 Q60M JORGE Lactobacillus Acidophilus 1 tab 06/02/19 10:00 06/05/19 09:31 Bacid - GT 1 tab DAILY JORGE Administration Lamotrigine 200 mg 06/02/19 10:00 06/05/19 22:45 Lamictal - PO 200 mg BID JORGE Administration Magnesium Hydroxide 20 ml 06/02/19 10:00 06/05/19 22:45 Milk Of Magnesia - GT 20 ml BID JORGE Administration Methylprednisolone Sodium Succinate 40 mg 06/02/19 02:45 06/06/19 02:16 Solu-Medrol - IVPUSH 40 mg Q8H-IV JORGE Administration Multivitamins/Minerals 15 ml 06/02/19 10:00 06/05/19 11:25 Certavite-Antioxidant Liquid GT 15 ml DAILY JORGE Administration Oseltamivir Phosphate 75 mg 06/02/19 03:15 06/05/19 22:45 Tamiflu - PEG 06/07/19 03:14 75 mg BID JORGE Administration Pantoprazole Sodium 40 mg 06/02/19 02:45 06/05/19 09:31 Protonix Iv IVPUSH 40 mg DAILY JORGE Administration Phenobarbital 48.6 mg 06/02/19 10:00 06/05/19 22:45 Phenobarbital Liquid - GT 48.6 mg BID JORGE Administration Potassium Chloride 40 meq 06/06/19 07:57 Potassium Chloride Oral Liquid PEG 06/06/19 07:58 ONCE ONE Sodium Chloride 2 spray 06/03/19 22:00 06/05/19 22:45 [place] Nasal [place] - NS 2 sprays BID JORGE Administration ASSESSMENT/PLAN: 24 yo M PMH cerebral palsy, epilepsy, herpes encephalitis, severe MR, nonverbal at baseline, GERD, and aspiration pneumonia, found to be rapid influenza A positive, s/p intubation due to worsening tachypnea and secretions causing difficulty protecting his airway. Neuro: - hx cerebral palsy, epilepsy, herpes encephalitis, severe mental retardation - home meds: baclofen 10mg GT BID, clobazam 5 mg GT daily and 10 mg GT QHS, clonazepam 1.5 mg GT TID, rectal diazepam gel, Lamotrigine 200mg BID, phenobarbital 48.6 mg GT BID - on propofol drip - nonverbal at baseline - unable to assess orientation - ctm CV: - tachycardic - BNP elevated at 449 - ctm Respiratory: - hx aspiration PNA - home meds: budesonide 0.25 mg, Fluticasone, Duoneb - rapid influenza A positive - on ventilator at RR 14, TV 350, FiO2 40%, satting 97% - concern for L sided infiltrate v atelectasis - sputum culture: Pseudomonas, few - Chest CTA: no definite PE, but suboptimal view. Patchy densities in the ABHISHEK and more confluent densities in LLL, subtotal atelectasis v PNA. - AM CXR unchanged - weaning trial - ctm GI: - hx GERD - home meds: Lactobacillus acidophilus, Ranitidine 75 mg BID, milk of magnesium - ctm Renal: - Initial lactate 2.7, repeat 1.5 - initial VBG: pH 7.35, pCO2 55.3, HCO3 29.9 - AM Cr - K low at 3.1, will replete - ctm Endo: - no acute concerns - ctm Heme/Onc: - AM WBC - AM Hgb - ctm ID: - giving acetaminophen PRN - afebrile - given 1g vancomycin and piptazo 4.5g in the ED (06/02/2019) - giving 3.375g TID piptazo daily (started 06/02/2019) - rapid influenza A positive - giving Tamiflu 75 mg BID - ctm PPX: - heparin 5000 units SQ TID - SCDs FENLTD: - intubated on 06/02/2019, on ventilator - K low this AM, replete lytes PRN - NPO - PEG tube in LUQ Visit type - Emergency Visit Emergency Visit: Yes ED Registration Date: 06/01/19 Care time: The patient presented to the Emergency Department on the above date and was hospitalized for further evaluation of their emergent condition. - New Patient This patient is new to me today: No - Critical Care Critical Care patient: Yes Total Critical Care Time (in minutes): 45 Critical Care Statement: The care of this patient involved high complexity decision making to prevent further life threatening deterioration of the patient 's condition and/or to evaluate & treat vital organ system(s) failure or risk of failure. ATTENDING PHYSICIAN STATEMENT I saw and evaluated the patient. I reviewed the resident's note and discussed the case with the resident. I agree with the resident's findings and plan as documented. SUBJECTIVE: OBJECTIVE: ASSESSMENT AND PLAN:
[2019-06-06] MEDS ORDERED: POTASSIUM CHLORIDE ORAL LIQUID 20 MEQ/15 ML PEG ONE (08:30)
[2019-06-06] MEDS ORDERED: PT OWN MED DRAWER 7, Y5N ONE ×2 (09:11→10:39)
[2019-06-06] MEDS: LACTOBACILLUS ACIDOPHILUS 1 TABLET GT SCH (09:21)
[2019-06-06] MEDS: MULTIVIT-MINERALS ORAL LIQUID GT SCH (09:21)
[2019-06-06] MEDS: HEPARIN NA (PORCINE) 5,000 UNITS/ML 1ML VIAL SQ SCH ×2 (09:22→21:34)
[2019-06-06] MEDS: lamoTRIgine 100 MG TABLET PO SCH ×2 (09:22→21:35)
[2019-06-06] MEDS: BACLOFEN 10 MG TABLET (FP) GT SCH ×2 (09:23→21:35)
[2019-06-06] MEDS: MAGNESIUM HYDROX 2400MG/30ML ORAL SUSPENSION 30 ML CUP GT SCH ×2 (09:23→21:35)
[2019-06-06] MEDS: ACYCLOVIR 200 MG/5 ML LIQUID GT SCH ×2 (09:25→21:36)
[2019-06-06] MEDS: FAMOTIDINE 40 MG/5 ML ORAL SUSPENSION NR SCH ×2 (09:26→21:37)
[2019-06-06] MEDS: cloBAZam 10 MG TABLET GT SCH ×2 (09:26→21:38)
[2019-06-06] MEDS: OSELTAMIVIR PHOSPHATE 75 MG CAPSULE PEG SCH ×2 (09:27→21:38)
[2019-06-06] MEDS: PANTOPRAZOLE SODIUM 40 MG VIAL IVPUSH SCH (09:27)
[2019-06-06] MEDS: BACITRACIN 15 GM TUBE TOPICAL OINTMENT TP SCH ×2 (09:52→21:34)
[2019-06-06] MEDS: SODIUM CHLORIDE NASAL SPRAY 44 ML BOTTLE NS SCH ×2 (09:52→21:36)
[2019-06-06] MEDS: LACTATED RINGERS SOLUTION 1,000 ML/1,000 ML INFUS.BAG IV SCH (10:30)
[2019-06-06] MEDS: PHENobarbital 20 MG/5 ML UNIT-DOSE CUP GT SCH ×2 (10:42→21:37)
--- NOTE | 2019-06-06 12:12 | PN ---
Teaching Attending Note Name of Resident: Danay Blevins ATTENDING PHYSICIAN STATEMENT I saw and evaluated the patient. I reviewed the resident's note and discussed the case with the resident. I agree with the resident's findings and plan as documented. SUBJECTIVE: Patient seen and examined in the ICU. Remains intubated and sedated . No pressors. Failed weaning attempts yesterday due to low VT and minute ventilation. Intake & Output 06/03/19 06/04/19 06/05/19 06/06/19 23:59 23:59 23:59 23:59 Intake Total 2122 2625.0 3815 2400 Output Total 1900 1999 1150 1350 Balance 222 625.0 2665 1050 Weight 89 lb 89 lb 4.595 oz 89 lb 3 oz 91 lb 1.6 oz Last Vital Signs Temp Pulse Resp BP Pulse Ox 99.5 F 67 16 145/77 100 06/06/19 10:00 06/06/19 10:00 06/06/19 10:00 06/06/19 10:00 06/06/19 08:00 Active Medications Acetaminophen (Tylenol Oral Solution -) 750 mg GT Q8H PRN PRN Reason: FEVER Last Admin: 06/06/19 05:54 Dose: 750 mg Acyclovir (Zovirax Oral Suspension -) 400 mg GT BID [facility] Last Admin: 06/06/19 09:25 Dose: 400 mg Albuterol/Ipratropium (Duoneb -) 1 amp NEB QID PRN PRN Reason: WHEEZING Last Admin: 06/05/19 21:15 Dose: 1 amp Bacitracin (Bacitracin -) 1 applic TP BID [facility] Last Admin: 06/06/19 09:52 Dose: 1 applic Baclofen (Lioresal -) 10 mg GT BID [facility] Last Admin: 06/06/19 09:23 Dose: 10 mg Budesonide (Pulmicort 0.25 Mg Nebulizer -) 1 amp NEB RBID [facility] Last Admin: 06/06/19 08:00 Dose: Not Given Clobazam (Onfi -) 10 mg GT HS [facility] Last Admin: 06/05/19 22:45 Dose: 10 mg Clobazam (Onfi -) 5 mg GT DAILY [facility] Last Admin: 06/06/19 09:26 Dose: 5 mg Clonazepam (Klonopin -) 1.5 mg GT TID [facility] Last Admin: 06/06/19 05:55 Dose: 1.5 mg Famotidine (Pepcid) 10 mg NR BID [facility] Last Admin: 06/06/19 09:26 Dose: 10 mg Fluticasone Propionate (Flonase -) 2 spray NS AM [facility] Last Admin: 06/06/19 07:00 Dose: 2 sprays Heparin Sodium (Porcine) (Heparin -) 5,000 unit SQ BID [facility] Last Admin: 06/06/19 09:22 Dose: 5,000 unit Propofol (Diprivan -) 1,000,000 mcg in 100 mls @ 1.034 mls/hr IVPB TITR JORGE; Protocol Last Titration: 06/06/19 11:00 Dose: 10 mcg/kg/min, 2.068 mls/hr Piperacillin Sod/Tazobactam (Sod 3.375 gm/ Dextrose) 50 mls @ 100 mls/hr IVPB Q8H-IV [facility]; Protocol Last Admin: 06/06/19 09:24 Dose: 100 mls/hr Lactated Ringer's (Lactated Ringers Solution) 1,000 ml in 1,000 mls @ 83 mls/ hr IV ASDIR [facility] Last Admin: 06/06/19 10:30 Dose: 83 mls/hr Lactobacillus Acidophilus (Bacid -) 1 tab GT DAILY [facility] Last Admin: 06/06/19 09:21 Dose: 1 tab Lamotrigine (Lamictal -) 200 mg PO BID [facility] Last Admin: 06/06/19 09:22 Dose: 200 mg Magnesium Hydroxide (Milk Of Magnesia -) 20 ml GT BID [facility] Last Admin: 06/06/19 09:23 Dose: 20 ml Methylprednisolone Sodium Succinate (Solu-Medrol -) 40 mg IVPUSH Q8H-IV [facility] Last Admin: 06/06/19 09:27 Dose: 40 mg Multivitamins/Minerals (Certavite-Antioxidant Liquid) 15 ml GT DAILY [facility] Last Admin: 06/06/19 09:21 Dose: 15 ml Oseltamivir Phosphate (Tamiflu -) 75 mg PEG BID [facility] Stop: 06/07/19 03:14 Last Admin: 06/06/19 09:27 Dose: 75 mg Pantoprazole Sodium (Protonix Iv) 40 mg IVPUSH DAILY [facility] Last Admin: 06/06/19 09:27 Dose: 40 mg Phenobarbital (Phenobarbital Liquid -) 48.6 mg GT BID [facility] Last Admin: 06/06/19 10:42 Dose: 48.6 mg Sodium Chloride ([place] Nasal [place] -) 2 spray NS BID [facility] Last Admin: 06/06/19 09:52 Dose: 2 sprays Gen: intubated, sedated , withdrawals to noxious stimuli Heart: RRR Lung: Vented, bilateral rhonchi, no wheeze, less copious secretions Abd: soft, nontender, mildly distended, (+) BS Ext: no edema, contracted ASSESSMENT AND PLAN: Acute Hypoxic Respiratory Failure Influenza A Pneumonia Sepsis Lactic Acidosis Cerebral Palsy Mental Retardation Seizure Disorder GERD - Aggressive pulm toilet - Complete tamiflu, antibiotics - medrol - inhaled bronchodilators - IVF - monitor urine output, creatinine - spontaneous breathing trials as tolerated, with hopes of extubation in the next 24 hours - DVT/GI prophylaxis - Follow daily CXR - Requires continued ICU monitoring Dr Price Critical care time spent in reviewing chart, evaluating patient and formulating plan - 36 minutes.
--- NOTE | 2019-06-06 14:30 | PN ---
Progress Note, Physician History of Present Illness: AWAKE ON VENTILATOR NO ACUTE DISTRESS TEMPS DOWN AFEBRILE WBC WNL LEGIONELLA/ PNEUMOCOCCAL AG (-) BC (-) SPUTUM C/S PSEUDOMONAS - Current Medication List Current Medications: Active Medications Acetaminophen (Tylenol Oral Solution -) 750 mg GT Q8H PRN PRN Reason: FEVER Last Admin: 06/06/19 13:18 Dose: 750 mg Acyclovir (Zovirax Oral Suspension -) 400 mg GT BID [facility] Last Admin: 06/06/19 09:25 Dose: 400 mg Albuterol/Ipratropium (Duoneb -) 1 amp NEB QID PRN PRN Reason: WHEEZING Last Admin: 06/05/19 21:15 Dose: 1 amp Bacitracin (Bacitracin -) 1 applic TP BID [facility] Last Admin: 06/06/19 09:52 Dose: 1 applic Baclofen (Lioresal -) 10 mg GT BID [facility] Last Admin: 06/06/19 09:23 Dose: 10 mg Budesonide (Pulmicort 0.25 Mg Nebulizer -) 1 amp NEB RBID [facility] Last Admin: 06/06/19 08:00 Dose: Not Given Clobazam (Onfi -) 10 mg GT HS [facility] Last Admin: 06/05/19 22:45 Dose: 10 mg Clobazam (Onfi -) 5 mg GT DAILY [facility] Last Admin: 06/06/19 09:26 Dose: 5 mg Clonazepam (Klonopin -) 1.5 mg GT TID [facility] Last Admin: 06/06/19 13:18 Dose: 1.5 mg Famotidine (Pepcid) 10 mg NR BID [facility] Last Admin: 06/06/19 09:26 Dose: 10 mg Fluticasone Propionate (Flonase -) 2 spray NS AM [facility] Last Admin: 06/06/19 07:00 Dose: 2 sprays Heparin Sodium (Porcine) (Heparin -) 5,000 unit SQ BID [facility] Last Admin: 06/06/19 09:22 Dose: 5,000 unit Propofol (Diprivan -) 1,000,000 mcg in 100 mls @ 1.034 mls/hr IVPB TITR [facility]; Protocol Last Admin: 06/06/19 13:42 Dose: 10 mcg/kg/min, 2.068 mls/hr Piperacillin Sod/Tazobactam (Sod 3.375 gm/ Dextrose) 50 mls @ 100 mls/hr IVPB Q8H-IV [facility]RO[facility]; Protocol Last Admin: 06/06/19 09:24 Dose: 100 mls/hr Lactated Ringer's (Lactated Ringers Solution) 1,000 ml in 1,000 mls @ 83 mls/ hr IV ASDIR [facility] Last Admin: 06/06/19 10:30 Dose: 83 mls/hr Lactobacillus Acidophilus (Bacid -) 1 tab GT DAILY [facility] Last Admin: 06/06/19 09:21 Dose: 1 tab Lamotrigine (Lamictal -) 200 mg PO BID [facility] Last Admin: 06/06/19 09:22 Dose: 200 mg Magnesium Hydroxide (Milk Of Magnesia -) 20 ml GT BID [facility] Last Admin: 06/06/19 09:23 Dose: 20 ml Methylprednisolone Sodium Succinate (Solu-Medrol -) 40 mg IVPUSH Q8H-IV [facility] Last Admin: 06/06/19 09:27 Dose: 40 mg Multivitamins/Minerals (Certavite-Antioxidant Liquid) 15 ml GT DAILY [facility] Last Admin: 06/06/19 09:21 Dose: 15 ml Oseltamivir Phosphate (Tamiflu -) 75 mg PEG BID [facility] Stop: 06/07/19 03:14 Last Admin: 06/06/19 09:27 Dose: 75 mg Pantoprazole Sodium (Protonix Iv) 40 mg IVPUSH DAILY [facility] Last Admin: 06/06/19 09:27 Dose: 40 mg Phenobarbital (Phenobarbital Liquid -) 48.6 mg GT BID [facility] Last Admin: 06/06/19 10:42 Dose: 48.6 mg Sodium Chloride ([place] Nasal [place] -) 2 spray NS BID [facility] Last Admin: 06/06/19 09:52 Dose: 2 sprays - Objective Vital Signs: Vital Signs Temperature 99.6 F 06/06/19 14:00 Pulse Rate 48 L 06/06/19 14:00 Respiratory Rate 15 06/06/19 14:00 Blood Pressure 137/64 06/06/19 14:00 O2 Sat by Pulse Oximetry (%) 100 06/06/19 08:00 Constitutional: Yes: No Distress Eyes: Yes: Conjunctiva Clear Cardiovascular: Yes: Regular Rate and Rhythm, S1, S2 Respiratory: Yes: CTA Bilaterally, Mechanically Ventilated Gastrointestinal: Yes: Normal Bowel Sounds, Soft. No: Tenderness Labs: CBC, BMP 06/05/19 05:30 06/05/19 05:30 INR, PTT INR 1.27 (0.83-1.09) H 06/02/19 05:45 Assessment/Plan RESP FAILURE INFLUENZA ? SUPERIMPOSED BACTERIAL PNEUMONIA CP/MR COMPLETE COURSE OF TAMIFLU CONTINUE EMPIRIC ZOSYN
[2019-06-06 15:12] VITALS: BMI 28.9
--- NOTE | 2019-06-06 15:37 | PN ---
Physical Exam: SUBJECTIVE: Patient seen and examined. Again awake off sedation but still intubated. No acute events overnight. OBJECTIVE: Vital Signs Period Temp Pulse Resp BP Sys/Linares Pulse Ox Last 24 Hr 98.5 F-99.8 F 46-103 14-22 118-163/49-83 98-100 GENERAL: intubated, awake off sedation, NAD HEAD: Normal with no signs of trauma. EYES: EOMI ENT: dry mucous membranes, ET tube in place NECK: Trachea midline, full range of motion, supple. LUNGS: mechanically vented, improved breath sounds bilaterally, mechanically ventilated HEART: RRR ABDOMEN: soft, NT, ND, no guarding. PEG tube in place EXTREMITIES: 2+ pulses, warm, well-perfused, no edema. contracted upper and lower extremities NEUROLOGICAL: normal gag reflex PSYCH: Normal mood, normal affect. SKIN: Warm, dry, normal turgor Active Medications Generic Name Dose Route Start Last Admin Trade Name Freq PRN Reason Stop Dose Admin Acetaminophen 750 mg 06/02/19 14:29 06/06/19 13:18 Tylenol Oral Solution - GT 750 mg Q8H PRN Administration FEVER Acyclovir 400 mg 06/02/19 10:00 06/06/19 09:25 Zovirax Oral Suspension - GT 400 mg BID JORGE Administration Albuterol/Ipratropium 1 amp 06/02/19 00:23 06/05/19 21:15 Duoneb - NEB 1 amp QID PRN Administration WHEEZING Bacitracin 1 applic 06/02/19 10:00 06/06/19 09:52 Bacitracin - TP 1 applic BID JORGE Administration Baclofen 10 mg 06/02/19 10:00 06/06/19 09:23 Lioresal - GT 10 mg BID JORGE Administration Budesonide 1 amp 06/02/19 08:00 06/06/19 08:00 Pulmicort 0.25 Mg Nebulizer - NEB Not Given RBID JORGE Clobazam 10 mg 06/02/19 22:00 06/05/19 22:45 Onfi - GT 10 mg HS JORGE Administration Clobazam 5 mg 06/02/19 10:00 06/06/19 09:26 Onfi - GT 5 mg DAILY [facility]ORGE Administration Clonazepam 1.5 mg 06/02/19 06:15 06/06/19 13:18 Klonopin - GT 1.5 mg TID JORGE Administration Famotidine 10 mg 06/02/19 10:00 06/06/19 09:26 Pepcid NR 10 mg BID JORGE Administration Fluticasone Propionate 2 spray 06/02/19 07:00 06/06/19 07:00 Flonase - NS 2 sprays AM [facility] Administration Heparin Sodium (Porcine) 5,000 unit 06/02/19 10:00 06/06/19 09:22 Heparin - SQ 5,000 unit BID JORGE Administration Propofol 1,000,000 mcg in 100 mls @ 1.034 mls/hr 06/02/19 02:15 06/06/19 13: 42 Diprivan - IVPB 10 mcg/kg/min TITR JORGE 2.068 mls/hr Administration Protocol 5 MCG/KG/MIN Piperacillin Sod/Tazobactam 50 mls @ 100 mls/hr 06/02/19 18:00 06/06/19 09:24 Sod 3.375 gm/ Dextrose IVPB 100 mls/hr Q8H-IV [facility] Administration Protocol Lactated Ringer's 1,000 ml in 1,000 mls @ 83 mls/hr 06/06/19 10:30 06/06/19 10:30 Lactated Ringers Solution IV 83 mls/hr ASDIR JORGE Administration Lactobacillus Acidophilus 1 tab 06/02/19 10:00 06/06/19 09:21 Bacid - GT 1 tab DAILY JORGE Administration Lamotrigine 200 mg 06/02/19 10:00 06/06/19 09:22 Lamictal - PO 200 mg BID JORGE Administration Magnesium Hydroxide 20 ml 06/02/19 10:00 06/06/19 09:23 Milk Of Magnesia - GT 20 ml BID JORGE Administration Methylprednisolone Sodium Succinate 40 mg 06/02/19 02:45 06/06/19 09:27 Solu-Medrol - IVPUSH 40 mg Q8H-IV JORGE Administration Multivitamins/Minerals 15 ml 06/02/19 10:00 06/06/19 09:21 Certavite-Antioxidant Liquid GT 15 ml DAILY [facility]ORGE Administration Oseltamivir Phosphate 75 mg 06/02/19 03:15 06/06/19 09:27 Tamiflu - PEG 06/07/19 03:14 75 mg BID [facility]ORGE Administration Pantoprazole Sodium 40 mg 06/02/19 02:45 06/06/19 09:27 Protonix Iv IVPUSH 40 mg DAILY [facility]OR[facility] Administration Phenobarbital 48.6 mg 06/02/19 10:00 06/06/19 10:42 Phenobarbital Liquid - GT 48.6 mg BID [facility]ORGE Administration Sodium Chloride 2 spray 06/03/19 22:00 06/06/19 09:52 [place] Nasal [place] - NS 2 sprays BID [facility]ORGE Administration ASSESSMENT/PLAN: 24 y/o/m [facility] resident with PMHx significant of CP, epilepsy, herpes encephalitis, GERD, and aspiration pneumonia. He was sent to the ER after he developed a non productive cough and was noticed to be warm to the touch, crying frequently, and short of breath. Was admitted for management of sepsis 2/ 2 pneumonia. #Sepsis 2/2 Pneumonia and Influenza - following daily CXR, no significant improvement - WBC resolved - Influenza A positive, Tamiflu course completed - Lactic acid normalized - Blood, urine cx, urine for Strep/Legionella negative to date - Sputum gram stain growing Pseudomonas - quantity few - Vanc/Zosyn given in ED - Continue Zosyn - ID consulted (Dr. Harrison) #Hypoxic respiratory distress - Respiratory distress likely 2/2 to pneumonia - Patient has been difficult to extubate due to poor inspiratory effort and poor tidal volume levels, however informed by ICU resident that tidal volume today is better than before - repeat ABG on 06/02 with improvement -> pH 7.4, pO2 111, PCO2 44.3 - CTA negative for PE, showing almost complete atelectasis of left lung - Continue home Pulmicort nebs - Solu-medrol 40mg IV Q8hr #Hx of seizures - Currently asymptomatic - Continue home anti-seizure meds #Polycythemia - H&H 17.4/51.1 on admission, baseline seems to be around 13/40 as per previous records, may be relative due to stress - repeat CBCs with improvement. H&H now at 11.6/33.7 #Transaminitis with elevated ALP - Patient has had elevated liver enzymes upon previous admissions - Likely 2/2 to medication side effect #Hx of herpes encephalitis - Continue acyclovir 400 BID #DVT ppx - Heparin SQ #FEN - NS @83mls/hr - Tube feeds started through PEG tube - Hypokalemia, repleted - Monitor and replete lytes as needed #Dispo - continue weaning trials, extubate as appropriate per ICU team Visit type - Emergency Visit Emergency Visit: Yes ED Registration Date: 06/01/19 Care time: The patient presented to the Emergency Department on the above date and was hospitalized for further evaluation of their emergent condition. - New Patient This patient is new to me today: No - Critical Care Critical Care patient: Yes Total Critical Care Time (in minutes): 36 Critical Care Statement: The care of this patient involved high complexity decision making to prevent further life threatening deterioration of the patient 's condition and/or to evaluate & treat vital organ system(s) failure or risk of failure. ATTENDING PHYSICIAN STATEMENT I saw and evaluated the patient. I reviewed the resident's note and discussed the case with the resident. I agree with the resident's findings and plan as documented. SUBJECTIVE: OBJECTIVE: ASSESSMENT AND PLAN:
[2019-06-06] MEDS: ALBUTEROL SO4 2.5/IPRATROPIUM 0.5 INH SOL 3 ML VIAL.NEB. NEB PRN (20:53)
[2019-06-07] MEDS: PIPERACILLIN/TAZOB 3.375 GM 3.375 GM in DEXTROSE 5%-WATER - 50 ML IVPB SCH ×3 (02:00→18:12)
[2019-06-07] MEDS: methylPREDNISolone NA SUCC 40 MG/1 ML VIAL IVPUSH SCH ×3 (02:00→18:12)
[2019-06-07] MEDS ORDERED: PIPERACILLIN/TAZOBACTAM 3.375 GM VIAL IVPB ONE ×4 (03:21→21:32)
[2019-06-07] MEDS ORDERED: DEXTROSE 5%-WATER - 50 ML IVPB ONE ×4 (03:21→21:33)
[2019-06-07] MEDS: PROPOFOL 1,000,000 MCG/100 ML VIAL IVPB SCH (03:37)
[2019-06-07] MEDS: clonazePAM 0.5 MG TABLET GT SCH ×3 (05:38→21:46)
[2019-06-07] MEDS: FLUTICASONE PROP 0.05% 16 GM NASAL SPRAY NS SCH (06:24)
[2019-06-07 06:25] LABS: BASO % 0.2 % (0-2.0); BILIRUBIN,TOTAL 0.4 mg/dL (0.2-1); BLOOD UREA NITROGEN 10.8 mg/dL (7-18); CALCIUM 8.3 mg/dL (8.5-10.1); CREATININE 0.7 mg/dL (0.55-1.3); EOS % 0.1 % (0-4.5); HEMATOCRIT 35.9 % (35.4-49); HEMOGLOBIN 12.3 GM/dL (11.7-16.9); LYMPH % 33.7 % (8-40); MAGNESIUM 1.8 mg/dL (1.8-2.4); MCH 34.2 pg (25.7-33.7); MCHC 34.1 g/dl (32.0-35.9); MEAN CELL VOLUME 100.1 fl (80-96); MEAN PLT VOLUME 10.3 fl (7.5-11.1); MONO % 9.5 % (3.8-10.2); NEUT % 56.5 % (42.8-82.8); PHOSPHOROUS 2.7 mg/dL (2.5-4.9); PLATELET COUNT 156 K/MM3 (134-434); POTASSIUM 3.4 mmol/L (3.5-5.1); RBC 3.59 M/mm3 (4.00-5.60); RDW 13.5 % (11.9-15.9); TOT PROT 6.8 g/dl (6.4-8.2); WHITE BLOOD COUNT 7.5 K/mm3 (4.0-10.0)
[2019-06-07] MEDS ORDERED: POTASSIUM CHLORIDE ORAL LIQUID 20 MEQ/15 ML PEG ONE ×3 (06:39→16:00)
--- NOTE | 2019-06-07 07:13 | PN ---
Physical Exam: SUBJECTIVE: Patient seen and examined NAEON. Patient awake and alert, remains intubated. OBJECTIVE: Vital Signs Period Temp Pulse Resp BP Sys/Linares Pulse Ox Last 24 Hr 99.1 F-100.1 F 46-67 14-16 129-157/52-77 100-100 GENERAL: The patient is awake, alert, and fully oriented, in no acute distress. HEAD: Microcephalic with no signs of trauma. EYES: PERRL, extraocular movements intact, sclera anicteric, conjunctiva clear. ENT: Ears normal, nares patent LUNGS: intubated, otherwise CTA b/l HEART: Regular rate and rhythm ABDOMEN: Soft, nontender, nondistended, normoactive bowel sounds EXTREMITIES: 2+ pulses, warm, diffusely contracted NEUROLOGICAL: looking around spontaneously SKIN: Warm, dry Laboratory Results - last 24 hr 06/07/19 06/07/19 05:35 05:35 WBC 7.5 RBC 3.59 L Hgb 12.3 Hct 35.9 MCV 100.1 H MCH 34.2 H MCHC 34.1 RDW 13.5 Plt Count 156 MPV 10.3 Absolute Neuts (auto) 4.3 Neutrophils % 56.5 Lymphocytes % 33.7 Monocytes % 9.5 Eosinophils % 0.1 D Basophils % 0.2 Nucleated RBC % 0 Sodium 143 Potassium 3.4 L Chloride 110 H Carbon Dioxide 25 Anion Gap 7 L BUN 10.8 Creatinine 0.7 Est GFR (CKD-EPI)AfAm 154.17 Est GFR (CKD-EPI)NonAf 133.02 Random Glucose 137 H Calcium 8.3 L Phosphorus 2.7 Magnesium 1.8 Total Bilirubin 0.4 AST 60 H ALT 120 H Alkaline Phosphatase 146 H Total Protein 6.8 Albumin 3.0 L Active Medications Generic Name Dose Route Start Last Admin Trade Name Freq PRN Reason Stop Dose Admin Acetaminophen 750 mg 06/02/19 14:29 06/06/19 13:18 Tylenol Oral Solution - GT 750 mg Q8H PRN Administration FEVER Acyclovir 400 mg 06/02/19 10:00 06/06/19 21:36 Zovirax Oral Suspension - GT 400 mg BID JORGE Administration Albuterol/Ipratropium 1 amp 06/02/19 00:23 06/06/19 20:53 Duoneb - NEB 1 amp QID PRN Administration WHEEZING Bacitracin 1 applic 06/02/19 10:00 06/06/19 21:34 Bacitracin - TP 1 applic BID JORGE Administration Baclofen 10 mg 06/02/19 10:00 06/06/19 21:35 Lioresal - GT 10 mg BID JORGE Administration Budesonide 1 amp 06/02/19 08:00 06/06/19 20:52 Pulmicort 0.25 Mg Nebulizer - NEB 1 amp RBID JORGE Administration Clobazam 10 mg 06/02/19 22:00 06/06/19 21:38 Onfi - GT 10 mg HS JORGE Administration Clobazam 5 mg 06/02/19 10:00 06/06/19 09:26 Onfi - GT 5 mg DAILY JORGE Administration Clonazepam 1.5 mg 06/02/19 06:15 06/07/19 05:38 Klonopin - GT 1.5 mg TID JORGE Administration Famotidine 10 mg 06/02/19 10:00 06/06/19 21:37 Pepcid NR 10 mg BID JORGE Administration Fluticasone Propionate 2 spray 06/02/19 07:00 06/07/19 06:24 Flonase - NS 2 sprays AM JORGE Administration Heparin Sodium (Porcine) 5,000 unit 06/02/19 10:00 06/06/19 21:34 Heparin - SQ 5,000 unit BID JORGE Administration Propofol 1,000,000 mcg in 100 mls @ 1.034 mls/hr 06/02/19 02:15 06/07/19 03: 37 Diprivan - IVPB 10 mcg/kg/min TITR JORGE 2.068 mls/hr Administration Protocol 5 MCG/KG/MIN Piperacillin Sod/Tazobactam 50 mls @ 100 mls/hr 06/02/19 18:00 06/07/19 02:00 Sod 3.375 gm/ Dextrose IVPB 100 mls/hr Q8H-IV JORGE Administration Protocol Lactated Ringer's 1,000 ml in 1,000 mls @ 83 mls/hr 06/06/19 10:30 06/06/19 10:30 Lactated Ringers Solution IV 83 mls/hr ASDIR JORGE Administration Lactobacillus Acidophilus 1 tab 06/02/19 10:00 06/06/19 09:21 Bacid - GT 1 tab DAILY JORGE Administration Lamotrigine 200 mg 06/02/19 10:00 06/06/19 21:35 Lamictal - PO 200 mg BID JORGE Administration Magnesium Hydroxide 20 ml 06/02/19 10:00 06/06/19 21:35 Milk Of Magnesia - GT 20 ml BID JORGE Administration Methylprednisolone Sodium Succinate 40 mg 06/02/19 02:45 06/07/19 02:00 Solu-Medrol - IVPUSH 40 mg Q8H-IV JORGE Administration Multivitamins/Minerals 15 ml 06/02/19 10:00 06/06/19 09:21 Certavite-Antioxidant Liquid GT 15 ml DAILY JORGE Administration Oseltamivir Phosphate 75 mg 06/02/19 03:15 06/06/19 21:38 Tamiflu - PEG 06/07/19 03:14 75 mg BID JORGE Administration Pantoprazole Sodium 40 mg 06/02/19 02:45 06/06/19 09:27 Protonix Iv IVPUSH 40 mg DAILY JORGE Administration Phenobarbital 48.6 mg 06/02/19 10:00 06/06/19 21:37 Phenobarbital Liquid - GT 48.6 mg BID JORGE Administration Potassium Chloride 40 meq 06/07/19 14:00 Potassium Chloride Oral Liquid PEG 06/07/19 14:01 ONCE ONE Sodium Chloride 2 spray 06/03/19 22:00 06/06/19 21:36 [place] Nasal [place] - NS 2 sprays BID JORGE Administration ASSESSMENT/PLAN: 24 yo M PMH cerebral palsy, epilepsy, herpes encephalitis, severe MR, nonverbal at baseline, GERD, and aspiration pneumonia, found to be rapid influenza A positive, s/p intubation due to worsening tachypnea and secretions causing difficulty protecting his airway. Neuro: - hx cerebral palsy, epilepsy, herpes encephalitis, severe mental retardation - home meds: baclofen 10mg GT BID, clobazam 5 mg GT daily and 10 mg GT QHS, clonazepam 1.5 mg GT TID, rectal diazepam gel, Lamotrigine 200mg BID, phenobarbital 48.6 mg GT BID - off sedation - nonverbal at baseline - unable to assess orientation - ctm CV: - regular rate and rhythm - BNP elevated at 449 - ctm Respiratory: - hx aspiration PNA - home meds: budesonide 0.25 mg, Fluticasone, Duoneb - rapid influenza A positive - on ventilator at RR 14, TV 350, FiO2 40%, satting 97% - concern for L sided infiltrate v atelectasis - sputum culture: Pseudomonas, few - Chest CTA: no definite PE, but suboptimal view. Patchy densities in the ABHISHEK and more confluent densities in LLL, subtotal atelectasis v PNA. - weaning trial, likely extubation today - ctm GI: - hx GERD - home meds: Lactobacillus acidophilus, Ranitidine 75 mg BID, milk of magnesium - ctm Renal: - Initial lactate 2.7, repeat 1.5 - initial VBG: pH 7.35, pCO2 55.3, HCO3 29.9 - K low at 3.1, will replete - ctm Endo: - no acute concerns - ctm Heme/Onc: - AM WBC - AM Hgb - no acute issues - ctm ID: - giving acetaminophen PRN - afebrile - given 1g vancomycin and piptazo 4.5g in the ED (06/02/2019) - giving 3.375g TID piptazo daily (started 06/02/2019) - rapid influenza A positive - finished course of Tamiflu - ctm PPX: - heparin 5000 units SQ TID - SCDs FENLTD: - intubated on 06/02/2019, on ventilator - K low this AM, replete lytes PRN - NPO - PEG tube in LUQ Visit type - Emergency Visit Emergency Visit: Yes ED Registration Date: 06/01/19 Care time: The patient presented to the Emergency Department on the above date and was hospitalized for further evaluation of their emergent condition. - New Patient This patient is new to me today: No - Critical Care Critical Care patient: Yes Total Critical Care Time (in minutes): 45 Critical Care Statement: The care of this patient involved high complexity decision making to prevent further life threatening deterioration of the patient 's condition and/or to evaluate & treat vital organ system(s) failure or risk of failure. ATTENDING PHYSICIAN STATEMENT I saw and evaluated the patient. I reviewed the resident's note and discussed the case with the resident. I agree with the resident's findings and plan as documented. SUBJECTIVE: OBJECTIVE: ASSESSMENT AND PLAN:
[2019-06-07] MEDS: ALBUTEROL SO4 2.5/IPRATROPIUM 0.5 INH SOL 3 ML VIAL.NEB. NEB PRN ×3 (07:45→20:35)
[2019-06-07] MEDS: BUDESONIDE 0.25 MG/2ML INH SUSP VIAL NEB SCH ×2 (07:45→21:42)
--- NOTE | 2019-06-07 08:06 | PN ---
Physical Exam: SUBJECTIVE: Patient seen and examined. No acute events overnight. I was in the room when ICU residents placed patient on CPAP mode on vent but patient was apneic, placed back on support settings. While on rounds -> patient extubated to high flow by ICU OBJECTIVE: Vital Signs Period Temp Pulse Resp BP Sys/Linares Pulse Ox Last 24 Hr 99.1 F-100.1 F 46-67 14-16 129-157/52-77 100-100 GENERAL: extubated HEAD: Normal with no signs of trauma. EYES: EOMI ENT: dry mucous membranes NECK: Trachea midline, full range of motion, supple. LUNGS: wheezing on inspiration and expiration HEART: RRR ABDOMEN: soft, NT, ND, no guarding. PEG tube in place EXTREMITIES: 2+ pulses, warm, well-perfused, no edema. contracted upper and lower extremities NEUROLOGICAL: normal gag reflex PSYCH: Normal mood, normal affect. SKIN: Warm, dry, normal turgor Laboratory Results - last 24 hr 06/07/19 06/07/19 05:35 05:35 WBC 7.5 RBC 3.59 L Hgb 12.3 Hct 35.9 MCV 100.1 H MCH 34.2 H MCHC 34.1 RDW 13.5 Plt Count 156 MPV 10.3 Absolute Neuts (auto) 4.3 Neutrophils % 56.5 Lymphocytes % 33.7 Monocytes % 9.5 Eosinophils % 0.1 D Basophils % 0.2 Nucleated RBC % 0 Sodium 143 Potassium 3.4 L Chloride 110 H Carbon Dioxide 25 Anion Gap 7 L BUN 10.8 Creatinine 0.7 Est GFR (CKD-EPI)AfAm 154.17 Est GFR (CKD-EPI)NonAf 133.02 Random Glucose 137 H Calcium 8.3 L Phosphorus 2.7 Magnesium 1.8 Total Bilirubin 0.4 AST 60 H ALT 120 H Alkaline Phosphatase 146 H Total Protein 6.8 Albumin 3.0 L Active Medications Generic Name Dose Route Start Last Admin Trade Name Freq PRN Reason Stop Dose Admin Acetaminophen 750 mg 06/02/19 14:29 06/06/19 13:18 Tylenol Oral Solution - GT 750 mg Q8H PRN Administration FEVER Acyclovir 400 mg 06/02/19 10:00 06/06/19 21:36 Zovirax Oral Suspension - GT 400 mg BID JORGE Administration Albuterol/Ipratropium 1 amp 06/02/19 00:23 06/06/19 20:53 Duoneb - NEB 1 amp QID PRN Administration WHEEZING Bacitracin 1 applic 06/02/19 10:00 06/06/19 21:34 Bacitracin - TP 1 applic BID JORGE Administration Baclofen 10 mg 06/02/19 10:00 06/06/19 21:35 Lioresal - GT 10 mg BID JORGE Administration Budesonide 1 amp 06/02/19 08:00 06/06/19 20:52 Pulmicort 0.25 Mg Nebulizer - NEB 1 amp RBID JORGE Administration Clobazam 10 mg 06/02/19 22:00 06/06/19 21:38 Onfi - GT 10 mg HS JORGE Administration Clobazam 5 mg 06/02/19 10:00 06/06/19 09:26 Onfi - GT 5 mg DAILY JORGE Administration Clonazepam 1.5 mg 06/02/19 06:15 06/07/19 05:38 Klonopin - GT 1.5 mg TID JORGE Administration Famotidine 10 mg 06/02/19 10:00 06/06/19 21:37 Pepcid NR 10 mg BID JORGE Administration Fluticasone Propionate 2 spray 06/02/19 07:00 06/07/19 06:24 Flonase - NS 2 sprays AM JORGE Administration Heparin Sodium (Porcine) 5,000 unit 06/02/19 10:00 06/06/19 21:34 Heparin - SQ 5,000 unit BID JORGE Administration Propofol 1,000,000 mcg in 100 mls @ 1.034 mls/hr 06/02/19 02:15 06/07/19 03: 37 Diprivan - IVPB 10 mcg/kg/min TITR JORGE 2.068 mls/hr Administration Protocol 5 MCG/KG/MIN Piperacillin Sod/Tazobactam 50 mls @ 100 mls/hr 06/02/19 18:00 06/07/19 02:00 Sod 3.375 gm/ Dextrose IVPB 100 mls/hr Q8H-IV JORGE Administration Protocol Lactated Ringer's 1,000 ml in 1,000 mls @ 83 mls/hr 06/06/19 10:30 06/06/19 10:30 Lactated Ringers Solution IV 83 mls/hr ASDIR JORGE Administration Lactobacillus Acidophilus 1 tab 06/02/19 10:00 06/06/19 09:21 Bacid - GT 1 tab DAILY JORGE Administration Lamotrigine 200 mg 06/02/19 10:00 06/06/19 21:35 Lamictal - PO 200 mg BID JORGE Administration Magnesium Hydroxide 20 ml 06/02/19 10:00 06/06/19 21:35 Milk Of Magnesia - GT 20 ml BID JORGE Administration Methylprednisolone Sodium Succinate 40 mg 06/02/19 02:45 06/07/19 02:00 Solu-Medrol - IVPUSH 40 mg Q8H-IV JORGE Administration Multivitamins/Minerals 15 ml 06/02/19 10:00 06/06/19 09:21 Certavite-Antioxidant Liquid GT 15 ml DAILY JORGE Administration Oseltamivir Phosphate 75 mg 06/02/19 03:15 06/06/19 21:38 Tamiflu - PEG 06/07/19 03:14 75 mg BID JORGE Administration Pantoprazole Sodium 40 mg 06/02/19 02:45 06/06/19 09:27 Protonix Iv IVPUSH 40 mg DAILY JORGE Administration Phenobarbital 48.6 mg 06/02/19 10:00 06/06/19 21:37 Phenobarbital Liquid - GT 48.6 mg BID JORGE Administration Potassium Chloride 40 meq 06/07/19 14:00 Potassium Chloride Oral Liquid PEG 06/07/19 14:01 ONCE ONE Sodium Chloride 2 spray 06/03/19 22:00 06/06/19 21:36 [place] Nasal [place] - NS 2 sprays BID JORGE Administration ASSESSMENT/PLAN: 24 y/o/m [place] resident with PMHx significant of CP, epilepsy, herpes encephalitis, GERD, and aspiration pneumonia. He was sent to the ER after he developed a non productive cough and was noticed to be warm to the touch, crying frequently, and short of breath. Was admitted for management of sepsis 2/ 2 pneumonia. #Sepsis 2/2 Pneumonia and Influenza - following daily CXR, dense left base compatible with fluid with atelectasis and/or infiltrate. Right lung is clear - WBC resolved - Influenza A positive, Tamiflu course completed - Lactic acid normalized - Blood, urine cx, urine for Strep/Legionella negative to date - Sputum gram stain growing Pseudomonas - quantity few - Vanc/Zosyn given in ED - Continue Zosyn - ID consulted (Dr. Harrison) #Hypoxic respiratory distress - Respiratory distress likely 2/2 to pneumonia - Extubated today to high flow oxygen - repeat ABG on 06/02 with improvement -> pH 7.4, pO2 111, PCO2 44.3 - CTA negative for PE, showing almost complete atelectasis of left lung - Continue home Pulmicort nebs - Solu-medrol 40mg IV Q8hr #Hx of seizures - Currently asymptomatic - Continue home anti-seizure meds #Polycythemia - H&H 17.4/51.1 on admission, baseline seems to be around 13/40 as per previous records, may be relative due to stress - repeat CBCs with improvement. H&H now at 12.3/35.9 #Transaminitis with elevated ALP - Patient has had elevated liver enzymes upon previous admissions - Likely 2/2 to medication side effect, continue to monitor #Hx of herpes encephalitis - Continue acyclovir 400 BID #DVT ppx - Heparin SQ #FEN - LR @83mls/hr - Tube feeds started through PEG tube - Hypokalemia, repleted - Monitor and replete lytes as needed #Dispo - extubated today to high flow oxygen, continue ICU monitoring Visit type - Emergency Visit Emergency Visit: Yes ED Registration Date: 06/01/19 Care time: The patient presented to the Emergency Department on the above date and was hospitalized for further evaluation of their emergent condition. - New Patient This patient is new to me today: No - Critical Care Critical Care patient: Yes Total Critical Care Time (in minutes): 36 Critical Care Statement: The care of this patient involved high complexity decision making to prevent further life threatening deterioration of the patient 's condition and/or to evaluate & treat vital organ system(s) failure or risk of failure. ATTENDING PHYSICIAN STATEMENT I saw and evaluated the patient. I reviewed the resident's note and discussed the case with the resident. I agree with the resident's findings and plan as documented. SUBJECTIVE: OBJECTIVE: ASSESSMENT AND PLAN:
[2019-06-07] MEDS ORDERED: PT OWN MED DRAWER 7, Y5N ONE ×3 (09:08→21:32)
[2019-06-07] MEDS: MULTIVIT-MINERALS ORAL LIQUID GT SCH (10:08)
[2019-06-07] MEDS: MAGNESIUM HYDROX 2400MG/30ML ORAL SUSPENSION 30 ML CUP GT SCH ×2 (10:08→21:45)
[2019-06-07] MEDS: FAMOTIDINE 40 MG/5 ML ORAL SUSPENSION NR SCH ×2 (10:08→21:49)
[2019-06-07] MEDS: ACYCLOVIR 200 MG/5 ML LIQUID GT SCH ×2 (10:09→21:48)
[2019-06-07] MEDS: PANTOPRAZOLE SODIUM 40 MG VIAL IVPUSH SCH (10:09)
[2019-06-07] MEDS: PHENobarbital 20 MG/5 ML UNIT-DOSE CUP GT SCH ×2 (10:09→21:49)
[2019-06-07] MEDS: HEPARIN NA (PORCINE) 5,000 UNITS/ML 1ML VIAL SQ SCH ×2 (10:10→21:45)
[2019-06-07] MEDS: BACITRACIN 15 GM TUBE TOPICAL OINTMENT TP SCH ×2 (10:10→21:44)
[2019-06-07] MEDS: LACTOBACILLUS ACIDOPHILUS 1 TABLET GT SCH (10:10)
[2019-06-07] MEDS: SODIUM CHLORIDE NASAL SPRAY 44 ML BOTTLE NS SCH ×2 (10:10→21:50)
[2019-06-07] MEDS: BACLOFEN 10 MG TABLET (FP) GT SCH ×2 (10:10→21:47)
[2019-06-07] MEDS: cloBAZam 10 MG TABLET GT SCH ×2 (10:11→21:45)
[2019-06-07] MEDS: lamoTRIgine 100 MG TABLET PO SCH ×2 (10:26→21:46)
--- NOTE | 2019-06-07 11:46 | PN ---
Teaching Attending Note Name of Resident: Danay Blevins ATTENDING PHYSICIAN STATEMENT I saw and evaluated the patient. I reviewed the resident's note and discussed the case with the resident. I agree with the resident's findings and plan as documented. SUBJECTIVE: Patient seen and examined in the ICU. Remains intubated, awake on CPAP. No pressors. Failed weaning attempts yesterday due to low VT and minute ventilation. Intake & Output 06/04/19 06/05/19 06/06/19 06/07/19 23:59 23:59 23:59 23:59 Intake Total 2625.0 3815 4078.5 9 Output Total 1999 1150 1800 1000 Balance 625.0 2665 2278.5 1029 Weight 89 lb 4.595 oz 89 lb 3 oz 91 lb 1.6 oz 91 lb 1.6 oz Last Vital Signs Temp Pulse Resp BP Pulse Ox 100.3 F H 48 L 14 141/63 100 06/07/19 08:00 06/07/19 08:00 06/07/19 09:00 06/07/19 08:00 06/07/19 09:00 Gen: intubated, sedated , withdraws to noxious stimuli Heart: RRR Lung: Vented, bilateral rhonchi, no wheeze, less copious secretions Abd: soft, nontender, mildly distended, (+) BS Ext: no edema, contracted Laboratory Results - last 24 hr 06/07/19 06/07/19 05:35 05:35 WBC 7.5 RBC 3.59 L Hgb 12.3 Hct 35.9 MCV 100.1 H MCH 34.2 H MCHC 34.1 RDW 13.5 Plt Count 156 MPV 10.3 Absolute Neuts (auto) 4.3 Neutrophils % 56.5 Lymphocytes % 33.7 Monocytes % 9.5 Eosinophils % 0.1 D Basophils % 0.2 Nucleated RBC % 0 Sodium 143 Potassium 3.4 L Chloride 110 H Carbon Dioxide 25 Anion Gap 7 L BUN 10.8 Creatinine 0.7 Est GFR (CKD-EPI)AfAm 154.17 Est GFR (CKD-EPI)NonAf 133.02 Random Glucose 137 H Calcium 8.3 L Phosphorus 2.7 Magnesium 1.8 Total Bilirubin 0.4 AST 60 H ALT 120 H Alkaline Phosphatase 146 H Total Protein 6.8 Albumin 3.0 L ASSESSMENT AND PLAN: Acute Hypoxic Respiratory Failure Influenza A Pneumonia Sepsis Lactic Acidosis Cerebral Palsy Mental Retardation Seizure Disorder GERD - Aggressive pulm toilet - Complete tamiflu, antibiotics - medrol - inhaled bronchodilators - IVF - monitor urine output, creatinine - spontaneous breathing trials as tolerated with trial of extubation to HFOT - DVT/GI prophylaxis - Requires continued ICU monitoring Dr Price Critical care time spent in reviewing chart, evaluating patient and formulating plan - 36 minutes.
[2019-06-07] MEDS: LACTATED RINGERS SOLUTION 1,000 ML/1,000 ML INFUS.BAG IV SCH (13:08)
--- NOTE | 2019-06-07 18:12 | PN ---
Teaching Attending Note Name of Resident: Halima Camacho ATTENDING PHYSICIAN STATEMENT I saw and evaluated the patient. I reviewed the resident's note and discussed the case with the resident. I agree with the resident's findings and plan as documented. SUBJECTIVE: non-verbal, unable to participate in medical interview OBJECTIVE: Tmax 100.1. Extubated to high flow via NC. Hemodynamically Stable. Last Vital Signs Temp Pulse Resp BP Pulse Ox 100.2 F H 55 L 34 H 145/63 100 06/07/19 16:00 06/07/19 16:00 06/07/19 16:00 06/07/19 16:06/07/19 09:00 HEENT - Atraumatic, on high flow via NC Heart - S1, S2, RRR Lungs - good air entry bilaterally - some wheeze. Abdomen - soft. PEG in situ. Bowel Sounds normal. Extremities - wasting, contractures. Laboratory Results - last 24 hr 06/07/19 06/07/19 05:35 05:35 WBC 7.5 RBC 3.59 L Hgb 12.3 Hct 35.9 MCV 100.1 H MCH 34.2 H MCHC 34.1 RDW 13.5 Plt Count 156 MPV 10.3 Absolute Neuts (auto) 4.3 Neutrophils % 56.5 Lymphocytes % 33.7 Monocytes % 9.5 Eosinophils % 0.1 D Basophils % 0.2 Nucleated RBC % 0 Sodium 143 Potassium 3.4 L Chloride 110 H Carbon Dioxide 25 Anion Gap 7 L BUN 10.8 Creatinine 0.7 Est GFR (CKD-EPI)AfAm 154.17 Est GFR (CKD-EPI)NonAf 133.02 Random Glucose 137 H Calcium 8.3 L Phosphorus 2.7 Magnesium 1.8 Total Bilirubin 0.4 AST 60 H ALT 120 H Alkaline Phosphatase 146 H Total Protein 6.8 Albumin 3.0 L Current Medications Generic Name Dose Route Start Last Admin Trade Name Freq PRN Reason Stop Dose Admin Acetaminophen 750 mg 06/02/19 14:29 06/06/19 13:18 Tylenol Oral Solution - GT 750 mg Q8H PRN Administration FEVER Acyclovir 400 mg 06/02/19 10:00 06/07/19 10:09 Zovirax Oral Suspension - GT 400 mg BID JORGE Administration Albuterol/Ipratropium 1 amp 06/02/19 00:23 06/07/19 11:50 Duoneb - NEB 1 amp QID PRN Administration WHEEZING Bacitracin 1 applic 06/02/19 10:00 06/07/19 10:10 Bacitracin - TP 1 applic BID JORGE Administration Baclofen 10 mg 06/02/19 10:00 06/07/19 10:10 Lioresal - GT 10 mg BID JORGE Administration Budesonide 1 amp 06/02/19 08:00 06/07/19 07:45 Pulmicort 0.25 Mg Nebulizer - NEB Not Given RBID JORGE Clobazam 10 mg 06/02/19 22:00 06/06/19 21:38 Onfi - GT 10 mg HS JORGE Administration Clobazam 5 mg 06/02/19 10:00 06/07/19 10:11 Onfi - GT 5 mg DAILY JORGE Administration Clonazepam 1.5 mg 06/02/19 06:15 06/07/19 13:54 Klonopin - GT 1.5 mg TID JORGE Administration Famotidine 10 mg 06/02/19 10:00 06/07/19 10:08 Pepcid NR 10 mg BID JORGE Administration Fluticasone Propionate 2 spray 06/02/19 07:00 06/07/19 06:24 Flonase - NS 2 sprays AM JORGE Administration Heparin Sodium (Porcine) 5,000 unit 06/02/19 10:00 06/07/19 10:10 Heparin - SQ 5,000 unit BID JORGE Administration Propofol 1,000,000 mcg in 100 mls @ 1.034 mls/hr 06/02/19 02:15 06/07/19 03: 37 Diprivan - IVPB 10 mcg/kg/min TITR JORGE 2.068 mls/hr Administration Protocol 5 MCG/KG/MIN Piperacillin Sod/Tazobactam 50 mls @ 100 mls/hr 06/02/19 18:00 06/07/19 10:08 Sod 3.375 gm/ Dextrose IVPB 100 mls/hr Q8H-IV JORGE Administration Protocol Lactated Ringer's 1,000 ml in 1,000 mls @ 83 mls/hr 06/06/19 10:30 06/07/19 13:08 Lactated Ringers Solution IV 83 mls/hr ASDIR JORGE Administration Lactobacillus Acidophilus 1 tab 06/02/19 10:00 06/07/19 10:10 Bacid - GT 1 tab DAILY JORGE Administration Lamotrigine 200 mg 06/02/19 10:00 06/07/19 10:26 Lamictal - PO 200 mg BID JORGE Administration Magnesium Hydroxide 20 ml 06/02/19 10:00 06/07/19 10:08 Milk Of Magnesia - GT 20 ml BID JORGE Administration Methylprednisolone Sodium Succinate 40 mg 06/02/19 02:45 06/07/19 10:07 Solu-Medrol - IVPUSH 40 mg Q8H-IV JORGE Administration Multivitamins/Minerals 15 ml 06/02/19 10:00 06/07/19 10:08 Certavite-Antioxidant Liquid GT 15 ml DAILY JORGE Administration Phenobarbital 48.6 mg 06/02/19 10:00 06/07/19 10:09 Phenobarbital Liquid - GT 48.6 mg BID JORGE Administration Sodium Chloride 2 spray 06/03/19 22:00 06/07/19 10:10 [place] Nasal [place] - NS 2 sprays BID JORGE Administration Home Medications Medication Instructions Recorded Acyclovir 400 mg GT BID 04/25/17 Baclofen 10 mg GT BID 04/25/17 Clobazam [Onfi -] 10 mg GT HS 04/25/17 Clonazepam 1.5 mg GT TID 04/25/17 Lactobacillus Acidophilus 1 each GT HS 04/25/17 [Acidophilus] Lamotrigine 200 mg GT BID 04/25/17 Multivitamin [Poly-Vitamin] 1 each GT HS 04/25/17 Phenobarbital 48.6 mg GT BID 04/25/17 Ranitidine [Zantac -] 75 mg GT BID #0 tab 03/29/18 Diazepam Rectal Gel [Diastat 7.5 mg ND PRN PRN 05/23/18 Rectal Gel -] Protein Supplement [Promod] 946 ml GT DAILY 05/23/18 Budesonide [Pulmicort 0.25 mg 1 neb IH BID 02/05/19 Nebulizer -] Fluticasone Prop 0.05% Nasal 2 spray NS AM 02/05/19 [Flonase -] Magnesium Hydrox 2400MG/30Ml [Milk 20 ml GT BID 02/05/19 of Magnesia -] Albuterol 2.5/Ipratropium 0.5 1 neb IH QID PRN #30 neb 02/14/19 [Duoneb -] Clobazam [Onfi -] 5 mg GT DAILY #30 tablet MDD 5mg 02/14/ /24h Bacitracin - [Bacitracin Topical 1 applic TP BID 06/01/19 Ointment -] Sodium Chloride/Aloe Vera [[place] 22 ml NS BID 06/01/19 Saline Nasal Gel [place]] ASSESSMENT AND PLAN: 24 year old male [place] resident with history of Cerebral Palsy, Developmental Delay, cognitive impairment, functional quadriplegia, seizure disorder, Hx of herpes encephalitis, GERD, Asthma, and Hx of aspiration pneumonia, presented with cough and SOB. 1. Acute Hypoxic Respiratory failure and Sepsis secondary to Influenza + Pneumonia with Acute Asthma exacerbation CXR/CT Chest - L basal consolidation Sputum Cx -Pseudomonas. Extubated 06/07/18 Completed 5 days Tamiflu. Continue Zosyn. Urine legionella negative. Bronchodilator Nebs, Solumedrol as per Pulm ID/Pulm following. 2. Seizure disorder - continue anti-seizure regimen (Clonazepam, Lamotrigene, Phenobarbital) 3. Elevated Transaminases ?sec to Sepsis ? Abx Abdominal US requested to exclude biliary pathology. 4. Hx of herpes encephalitis - maintained on Acyclovir DVT Px - Heparin SQ GI Px - on H2 levi, discontinue PPI
[2019-06-08] MEDS: methylPREDNISolone NA SUCC 40 MG/1 ML VIAL IVPUSH SCH ×3 (02:21→17:20)
[2019-06-08] MEDS: PIPERACILLIN/TAZOB 3.375 GM 3.375 GM in DEXTROSE 5%-WATER - 50 ML IVPB SCH ×3 (02:21→17:20)
[2019-06-08] MEDS ORDERED: DEXTROSE 5%-WATER - 50 ML IVPB ONE ×3 (05:35→17:06)
[2019-06-08] MEDS ORDERED: PIPERACILLIN/TAZOBACTAM 3.375 GM VIAL IVPB ONE ×3 (05:35→17:06)
[2019-06-08] MEDS: PROPOFOL 1,000,000 MCG/100 ML VIAL IVPB SCH (05:51)
[2019-06-08] MEDS: clonazePAM 0.5 MG TABLET GT SCH ×3 (05:52→23:16)
[2019-06-08] MEDS: FLUTICASONE PROP 0.05% 16 GM NASAL SPRAY NS SCH (06:03)
[2019-06-08 06:38] LABS: BILIRUBIN,TOTAL 0.3 mg/dL (0.2-1); BLOOD UREA NITROGEN 9.7 mg/dL (7-18); CREATININE 0.6 mg/dL (0.55-1.3); MAGNESIUM 1.8 mg/dL (1.8-2.4); PHOSPHOROUS 3.8 mg/dL (2.5-4.9); POTASSIUM 4.1 mmol/L (3.5-5.1); TOT PROT 7.5 g/dl (6.4-8.2)
[2019-06-08] MEDS ORDERED: MAGNESIUM SULF 50% (8.12 MEQ/2 ML-1 GM VIAL) IVPB ONE (08:14)
[2019-06-08] MEDS ORDERED: PT OWN MED DRAWER 7, Y5N ONE ×2 (09:50→23:14)
[2019-06-08] MEDS: MULTIVIT-MINERALS ORAL LIQUID GT SCH (09:56)
[2019-06-08] MEDS: MAGNESIUM HYDROX 2400MG/30ML ORAL SUSPENSION 30 ML CUP GT SCH ×2 (09:56→23:15)
[2019-06-08] MEDS: cloBAZam 10 MG TABLET GT SCH (09:57)
[2019-06-08] MEDS: SODIUM CHLORIDE NASAL SPRAY 44 ML BOTTLE NS SCH ×2 (09:58→23:18)
[2019-06-08] MEDS: HEPARIN NA (PORCINE) 5,000 UNITS/ML 1ML VIAL SQ SCH ×2 (09:58→23:17)
[2019-06-08] MEDS: BACLOFEN 10 MG TABLET (FP) GT SCH (09:58)
[2019-06-08] MEDS: lamoTRIgine 100 MG TABLET PO SCH ×2 (09:58→23:16)
[2019-06-08] MEDS: PHENobarbital 20 MG/5 ML UNIT-DOSE CUP GT SCH ×2 (09:59→23:16)
[2019-06-08] MEDS: FAMOTIDINE 40 MG/5 ML ORAL SUSPENSION NR SCH ×2 (09:59→23:18)
[2019-06-08] MEDS: ACYCLOVIR 200 MG/5 ML LIQUID GT SCH (09:59)
[2019-06-08] MEDS: BACITRACIN 15 GM TUBE TOPICAL OINTMENT TP SCH ×2 (09:59→23:17)
[2019-06-08] MEDS: LACTOBACILLUS ACIDOPHILUS 1 TABLET GT SCH (09:59)
[2019-06-08 10:03] LABS: BASO % 0.2 % (0-2.0); EOS % 0.8 % (0-4.5); HEMATOCRIT 41.4 % (35.4-49); LYMPH % 37.6 % (8-40); MCH 33.6 pg (25.7-33.7); MCHC 33.9 g/dl (32.0-35.9); MEAN CELL VOLUME 99.2 fl (80-96); MEAN PLT VOLUME 9.7 fl (7.5-11.1); MONO % 6.7 % (3.8-10.2); NEUT % 54.7 % (42.8-82.8); PLATELET COUNT 209 K/MM3 (134-434); RBC 4.17 M/mm3 (4.00-5.60); RDW 13.5 % (11.9-15.9); WHITE BLOOD COUNT 10.8 K/mm3 (4.0-10.0)
--- NOTE | 2019-06-08 10:32 | PN ---
Physical Exam: SUBJECTIVE: Patient seen and examined. Continue on high flow wean as tolerated. OBJECTIVE: Vital Signs Period Temp Pulse Resp BP Sys/Linares Pulse Ox Last 24 Hr 98.4 F-100.2 F 50-679 20-34 104-145/48-72 100-100 GENERAL: Extubated on HF HEHNT: NCAT. MMM. LUNGS: Left inspiratory squeaking HEART: RRR S1S2 no mrg ABDOMEN: Soft, NT, ND. +BS. PEG in place c/d/i EXTREMITIES: 2+ pulses, warm, well-perfused, no edema. Contracted. SKIN: Warm, dry, normal turgor Laboratory Results - last 24 hr 06/08/19 06/08/19 06/08/19 05:35 06:00 09:29 WBC Cancelled 10.8 H Corrected WBC (auto) Cancelled RBC Cancelled 4.17 Hgb Cancelled 14.0 Hct Cancelled 41.4 D MCV Cancelled 99.2 H MCH Cancelled 33.6 MCHC Cancelled 33.9 RDW Cancelled 13.5 Plt Count Cancelled 209 D MPV Cancelled 9.7 Absolute Neuts (auto) Cancelled 5.9 Neutrophils % Cancelled 54.7 Lymphocytes % Cancelled 37.6 Monocytes % Cancelled 6.7 Eosinophils % Cancelled 0.8 D Basophils % Cancelled 0.2 Nucleated RBC % Cancelled 0 Platelet Estimate Cancelled Platelet Comment Cancelled Sodium 143 Potassium 4.1 Chloride 110 H Carbon Dioxide 27 Anion Gap 6 L BUN 9.7 Creatinine 0.6 Est GFR (CKD-EPI)AfAm 164.25 Est GFR (CKD-EPI)NonAf 141.72 Random Glucose 104 Calcium 9.0 Phosphorus 3.8 Magnesium 1.8 Total Bilirubin 0.3 AST 84 H ALT 166 H Alkaline Phosphatase 152 H Total Protein 7.5 Albumin 3.0 L Active Medications Generic Name Dose Route Start Last Admin Trade Name Freq PRN Reason Stop Dose Admin Acetaminophen 750 mg 06/02/19 14:29 06/06/19 13:18 Tylenol Oral Solution - GT 750 mg Q8H PRN Administration FEVER Acyclovir 400 mg 06/02/19 10:00 06/08/19 09:59 Zovirax Oral Suspension - GT 400 mg BID JORGE Administration Albuterol/Ipratropium 1 amp 06/02/19 00:23 06/07/19 20:35 Duoneb - NEB 1 amp QID PRN Administration WHEEZING Bacitracin 1 applic 06/02/19 10:00 06/08/19 09:59 Bacitracin - TP 1 applic BID JORGE Administration Baclofen 10 mg 06/02/19 10:00 06/08/19 09:58 Lioresal - GT 10 mg BID JORGE Administration Budesonide 1 amp 06/02/19 08:00 06/07/19 21:42 Pulmicort 0.25 Mg Nebulizer - NEB 1 amp RBID JORGE Administration Clobazam 10 mg 06/02/19 22:00 06/07/19 21:45 Onfi - GT 10 mg HS JORGE Administration Clobazam 5 mg 06/02/19 10:00 06/08/19 09:57 Onfi - GT 5 mg DAILY JORGE Administration Clonazepam 1.5 mg 06/02/19 06:15 06/08/19 05:52 Klonopin - GT 1.5 mg TID JORGE Administration Famotidine 10 mg 06/02/19 10:00 06/08/19 09:59 Pepcid NR 10 mg BID JORGE Administration Fluticasone Propionate 2 spray 06/02/19 07:00 06/08/19 06:03 Flonase - NS 2 sprays AM JORGE Administration Heparin Sodium (Porcine) 5,000 unit 06/02/19 10:00 06/08/19 09:58 Heparin - SQ 5,000 unit BID JORGE Administration Propofol 1,000,000 mcg in 100 mls @ 1.034 mls/hr 06/02/19 02:15 06/08/19 05: 51 Diprivan - IVPB Not Given TITR JORGE Protocol 5 MCG/KG/MIN Piperacillin Sod/Tazobactam 50 mls @ 100 mls/hr 06/02/19 18:00 06/08/19 09:55 Sod 3.375 gm/ Dextrose IVPB 100 mls/hr Q8H-IV JORGE Administration Protocol Lactobacillus Acidophilus 1 tab 06/02/19 10:00 06/08/19 09:59 Bacid - GT 1 tab DAILY JORGE Administration Lamotrigine 200 mg 06/02/19 10:00 06/08/19 09:58 Lamictal - PO 200 mg BID JORGE Administration Magnesium Hydroxide 20 ml 06/02/19 10:00 01/29/20 09:56 Milk Of Magnesia - GT 20 ml BID JORGE Administration Methylprednisolone Sodium Succinate 40 mg 06/02/19 02:45 06/08/19 09:57 Solu-Medrol - IVPUSH 40 mg Q8H-IV JORGE Administration Multivitamins/Minerals 15 ml 06/02/19 10:00 06/08/19 09:56 Certavite-Antioxidant Liquid GT 15 ml DAILY JORGE Administration Phenobarbital 48.6 mg 06/02/19 10:00 06/08/19 09:59 Phenobarbital Liquid - GT 48.6 mg BID JORGE Administration Sodium Chloride 2 spray 06/03/19 22:00 06/08/19 09:58 [place] - NS 2 sprays BID JORGE Administration ASSESSMENT/PLAN: 24 y.[address] M from [facility] CP, epilepsy, herpes encephalitis, GERD, and aspiration pneumonia admitted for sepsis 2/2 pneumonia. #[employer] -hx cerebral palsy, epilepsy, herpes encephalitis, severe mental retardation -continuing home meds: baclofen 10mg GT BID, clobazam 5 mg GT daily and 10 mg GT QHS, clonazepam 1.5 mg GT TID, rectal diazepam gel, Lamotrigine 200mg BID, phenobarbital 48.6 mg GT BID, acyclovir 400mg GT BID -off sedation -nonverbal at baseline, unable to assess orientation #CV -monitor HR -Echo 05/12: normal LV function, trace TR #Pulm -hx aspiration PNA -solumedrol 40mg IV q8h -continuing home meds: budesonide 0.25 mg, flonase duonebs -influenza A positive-- s/p droplet precautions x7 days -on high flow, wean as tolerated -sputum culture + few Pseudomonas -Chest CTA: n definite PE, but suboptimal view. Patchy densities in the ABHISHEK and more confluent densities in LLL, subtotal atelectasis v PNA. -AM CXR continues to show L sided pulm/ pleural changes -daily chest PT -suction PRN, oral care #GI -hx GERD -bacid, pepcid 10mg bid, milk of magnesium -PEG in place continue tube feeds -transaminitis likely chronic #Heme/Onc -polycythemia on admission, resolved -monitor cbc #ID: -afebrile -+ flu on admission, PNA -s/p tamiflu course -empiric zosyn day #7 abx #PPX: -heparin SQ -SCDs #FENLTD: -no standing fluids -replete lyte prn -continue tube feeds via PEG -PEG placed prior to admission -peripheral IV's #Dispo tele monitoring Visit type - Emergency Visit Emergency Visit: No - New Patient This patient is new to me today: No - Critical Care Critical Care patient: Yes Total Critical Care Time (in minutes): 45 Critical Care Statement: The care of this patient involved high complexity decision making to prevent further life threatening deterioration of the patient 's condition and/or to evaluate & treat vital organ system(s) failure or risk of failure. ATTENDING PHYSICIAN STATEMENT I saw and evaluated the patient. I reviewed the resident's note and discussed the case with the resident. I agree with the resident's findings and plan as documented. SUBJECTIVE: OBJECTIVE: ASSESSMENT AND PLAN:
--- NOTE | 2019-06-08 10:54 | PN ---
Progress Note, Physician History of Present Illness: EXTUBATED NO ACUTE DISTRESS ON HIGH FLOW O2 LOW GRADE TEMP NOTED TEMPS DOWN LEGIONELLA/ PNEUMOCOCCAL AG (-) BC (-) SPUTUM C/S PSEUDOMONAS - Current Medication List Current Medications: Active Medications Acetaminophen (Tylenol Oral Solution -) 750 mg GT Q8H PRN PRN Reason: FEVER Last Admin: 06/06/19 13:18 Dose: 750 mg Acyclovir (Zovirax Oral Suspension -) 400 mg GT BID [facility] Last Admin: 06/08/19 09:59 Dose: 400 mg Albuterol/Ipratropium (Duoneb -) 1 amp NEB QID PRN PRN Reason: WHEEZING Last Admin: 06/07/19 20:35 Dose: 1 amp Bacitracin (Bacitracin -) 1 applic TP BID [facility] Last Admin: 06/08/19 09:59 Dose: 1 applic Baclofen (Lioresal -) 10 mg GT BID [facility] Last Admin: 06/08/19 09:58 Dose: 10 mg Budesonide (Pulmicort 0.25 Mg Nebulizer -) 1 amp NEB RBID [facility] Last Admin: 06/07/19 21:42 Dose: 1 amp Clobazam (Onfi -) 10 mg GT HS [facility] Last Admin: 06/07/19 21:45 Dose: 10 mg Clobazam (Onfi -) 5 mg GT DAILY [facility] Last Admin: 06/08/19 09:57 Dose: 5 mg Clonazepam (Klonopin -) 1.5 mg GT TID [facility] Last Admin: 06/08/19 05:52 Dose: 1.5 mg Famotidine (Pepcid) 10 mg NR BID [facility] Last Admin: 06/08/19 09:59 Dose: 10 mg Fluticasone Propionate (Flonase -) 2 spray NS AM [facility] Last Admin: 06/08/19 06:03 Dose: 2 sprays Heparin Sodium (Porcine) (Heparin -) 5,000 unit SQ BID [facility] Last Admin: 06/08/19 09:58 Dose: 5,000 unit Propofol (Diprivan -) 1,000,000 mcg in 100 mls @ 1.034 mls/hr IVPB TITR JORGE; Protocol Last Admin: 06/08/19 05:51 Dose: Not Given Piperacillin Sod/Tazobactam (Sod 3.375 gm/ Dextrose) 50 mls @ 100 mls/hr IVPB Q8H-IV JORGE; Protocol Last Admin: 06/08/19 09:55 Dose: 100 mls/hr Lactobacillus Acidophilus (Bacid -) 1 tab GT DAILY [facility] Last Admin: 06/08/19 09:59 Dose: 1 tab Lamotrigine (Lamictal -) 200 mg PO BID [facility] Last Admin: 06/08/19 09:58 Dose: 200 mg Magnesium Hydroxide (Milk Of Magnesia -) 20 ml GT BID [facility] Last Admin: 06/08/19 09:56 Dose: 20 ml Methylprednisolone Sodium Succinate (Solu-Medrol -) 40 mg IVPUSH Q8H-IV JORGE Last Admin: 06/08/19 09:57 Dose: 40 mg Multivitamins/Minerals (Certavite-Antioxidant Liquid) 15 ml GT DAILY [facility] Last Admin: 06/08/19 09:56 Dose: 15 ml Phenobarbital (Phenobarbital Liquid -) 48.6 mg GT BID [facility] Last Admin: 06/08/19 09:59 Dose: 48.6 mg Sodium Chloride ([place] Nasal [place] -) 2 spray NS BID [facility] Last Admin: 06/08/19 09:58 Dose: 2 sprays - Objective Vital Signs: Vital Signs Temperature 98.5 F 06/08/19 10:00 Pulse Rate 75 06/08/19 10:00 Respiratory Rate 26 H 06/08/19 10:00 Blood Pressure 130/72 06/08/19 10:00 O2 Sat by Pulse Oximetry (%) 93 L 06/08/19 09:00 Constitutional: Yes: No Distress Eyes: Yes: Conjunctiva Clear Cardiovascular: Yes: Regular Rate and Rhythm, S1, S2 Respiratory: Yes: Diminished Gastrointestinal: Yes: Normal Bowel Sounds, Soft. No: Tenderness Labs: CBC, BMP 06/08/19 09:29 06/08/19 06:00 INR, PTT INR 1.27 (0.83-1.09) H 06/02/19 05:45 Assessment/Plan RESP FAILURE S/P EXTUBATION INFLUENZA ? SUPERIMPOSED BACTERIAL PNEUMONIA CP/MR CONTINUE ZOSYN
--- NOTE | 2019-06-08 11:18 | PN ---
Teaching Attending Note Name of Resident: Sweetie Cobb ATTENDING PHYSICIAN STATEMENT I saw and evaluated the patient. I reviewed the resident's note and discussed the case with the resident. I agree with the resident's findings and plan as documented. SUBJECTIVE: Patient seen and examined in the ICU. Remains extubated, awake on HFOT 50L / 50 % FiO2. No pressors. Intake & Output 06/05/19 06/06/19 06/07/19 06/08/19 23:59 23:59 23:59 23:59 Intake Total 3815 4078.5 4183 754 Output Total 1150 1800 2700 500 Balance 2665 2278.5 1483 254 Weight 89 lb 3 oz 91 lb 1.6 oz 91 lb 1.6 oz 91 lb 1.6 oz Last Vital Signs Temp Pulse Resp BP Pulse Ox 98.5 F 75 26 H 130/72 93 L 06/08/19 10:00 06/08/19 10:00 06/08/19 10:00 06/08/19 10:00 06/08/19 09:00 Active Medications Acetaminophen (Tylenol Oral Solution -) 750 mg GT Q8H PRN PRN Reason: FEVER Last Admin: 06/06/19 13:18 Dose: 750 mg Acyclovir (Zovirax Oral Suspension -) 400 mg GT BID [facility] Last Admin: 06/08/19 09:59 Dose: 400 mg Albuterol/Ipratropium (Duoneb -) 1 amp NEB QID PRN PRN Reason: WHEEZING Last Admin: 06/07/19 20:35 Dose: 1 amp Bacitracin (Bacitracin -) 1 applic TP BID [facility] Last Admin: 06/08/19 09:59 Dose: 1 applic Baclofen (Lioresal -) 10 mg GT BID [facility] Last Admin: 06/08/19 09:58 Dose: 10 mg Budesonide (Pulmicort 0.25 Mg Nebulizer -) 1 amp NEB RBID [facility] Last Admin: 06/07/19 21:42 Dose: 1 amp Clobazam (Onfi -) 10 mg GT HS [facility] Last Admin: 06/07/19 21:45 Dose: 10 mg Clobazam (Onfi -) 5 mg GT DAILY [facility] Last Admin: 06/08/19 09:57 Dose: 5 mg Clonazepam (Klonopin -) 1.5 mg GT TID [facility] Last Admin: 06/08/19 05:52 Dose: 1.5 mg Famotidine (Pepcid) 10 mg NR BID [facility] Last Admin: 06/08/19 09:59 Dose: 10 mg Fluticasone Propionate (Flonase -) 2 spray NS AM [facility] Last Admin: 06/08/19 06:03 Dose: 2 sprays Heparin Sodium (Porcine) (Heparin -) 5,000 unit SQ BID JOR[facility] Last Admin: 06/08/19 09:58 Dose: 5,000 unit Propofol (Diprivan -) 1,000,000 mcg in 100 mls @ 1.034 mls/hr IVPB TITR JORGE; Protocol Last Admin: 06/08/19 05:51 Dose: Not Given Piperacillin Sod/Tazobactam (Sod 3.375 gm/ Dextrose) 50 mls @ 100 mls/hr IVPB Q8H-IV JORGE; Protocol Last Admin: 06/08/19 09:55 Dose: 100 mls/hr Lactobacillus Acidophilus (Bacid -) 1 tab GT DAILY [facility] Last Admin: 06/08/19 09:59 Dose: 1 tab Lamotrigine (Lamictal -) 200 mg PO BID [facility] Last Admin: 06/08/19 09:58 Dose: 200 mg Magnesium Hydroxide (Milk Of Magnesia -) 20 ml GT BID [facility] Last Admin: 06/08/19 09:56 Dose: 20 ml Methylprednisolone Sodium Succinate (Solu-Medrol -) 40 mg IVPUSH Q8H-IV [facility] Last Admin: 06/08/19 09:57 Dose: 40 mg Multivitamins/Minerals (Certavite-Antioxidant Liquid) 15 ml GT DAILY [facility] Last Admin: 06/08/19 09:56 Dose: 15 ml Phenobarbital (Phenobarbital Liquid -) 48.6 mg GT BID [facility] Last Admin: 06/08/19 09:59 Dose: 48.6 mg Sodium Chloride ([place] Nasal [place] -) 2 spray NS BID [facility] Last Admin: 06/08/19 09:58 Dose: 2 sprays Gen: Extubated in NAD on HFOT Heart: RRR Lung: HFOT, scattered rhonchi, inspiratory squeak on the left Abd: soft, nontender, mildly distended, (+) BS Ext: no edema, contracted Laboratory Results - last 24 hr 06/08/19 06/08/19 06/08/19 05:35 06:00 09:29 WBC Cancelled 10.8 H Corrected WBC (auto) Cancelled RBC Cancelled 4.17 Hgb Cancelled 14.0 Hct Cancelled 41.4 D MCV Cancelled 99.2 H MCH Cancelled 33.6 MCHC Cancelled 33.9 RDW Cancelled 13.5 Plt Count Cancelled 209 D MPV Cancelled 9.7 Absolute Neuts (auto) Cancelled 5.9 Neutrophils % Cancelled 54.7 Lymphocytes % Cancelled 37.6 Monocytes % Cancelled 6.7 Eosinophils % Cancelled 0.8 D Basophils % Cancelled 0.2 Nucleated RBC % Cancelled 0 Platelet Estimate Cancelled Platelet Comment Cancelled Sodium 143 Potassium 4.1 Chloride 110 H Carbon Dioxide 27 Anion Gap 6 L BUN 9.7 Creatinine 0.6 Est GFR (CKD-EPI)AfAm 164.25 Est GFR (CKD-EPI)NonAf 141.72 Random Glucose 104 Calcium 9.0 Phosphorus 3.8 Magnesium 1.8 Total Bilirubin 0.3 AST 84 H ALT 166 H Alkaline Phosphatase 152 H Total Protein 7.5 Albumin 3.0 L ASSESSMENT AND PLAN: Acute Hypoxic Respiratory Failure Influenza A Pneumonia Sepsis Lactic Acidosis Cerebral Palsy Mental Retardation Seizure Disorder GERD - Wean HFOT as tolerated - Complete tamiflu, antibiotics - Wean medrol - inhaled bronchodilators - IVF - monitor urine output, creatinine - DVT/GI prophylaxis - 4W / 4S monitoring for HFOT Dr Price
--- NOTE | 2019-06-08 11:53 | PN ---
Physical Exam: SUBJECTIVE: Patient seen and examined. No acute events overnight. Patient to be transferred to floors per ICU team. OBJECTIVE: Vital Signs Period Temp Pulse Resp BP Sys/Linares Pulse Ox Last 24 Hr 98.4 F-100.2 F 50-679 20-34 104-145/48-72 93-100 GENERAL: on venti mask HEAD: Normal with no signs of trauma. EYES: EOMI ENT: dry mucous membranes NECK: Trachea midline, full range of motion, supple. LUNGS: coarse breath sounds, wheezing bilaterally HEART: RRR ABDOMEN: soft, NT, ND, no guarding. PEG tube in place EXTREMITIES: 2+ pulses, warm, well-perfused, no edema. contracted upper and lower extremities NEUROLOGICAL: normal gag reflex PSYCH: Normal mood, normal affect SKIN: Warm, dry, normal turgor Laboratory Results - last 24 hr 06/08/19 06/08/19 06/08/19 05:35 06:00 09:29 WBC Cancelled 10.8 H Corrected WBC (auto) Cancelled RBC Cancelled 4.17 Hgb Cancelled 14.0 Hct Cancelled 41.4 D MCV Cancelled 99.2 H MCH Cancelled 33.6 MCHC Cancelled 33.9 RDW Cancelled 13.5 Plt Count Cancelled 209 D MPV Cancelled 9.7 Absolute Neuts (auto) Cancelled 5.9 Neutrophils % Cancelled 54.7 Lymphocytes % Cancelled 37.6 Monocytes % Cancelled 6.7 Eosinophils % Cancelled 0.8 D Basophils % Cancelled 0.2 Nucleated RBC % Cancelled 0 Platelet Estimate Cancelled Platelet Comment Cancelled Sodium 143 Potassium 4.1 Chloride 110 H Carbon Dioxide 27 Anion Gap 6 L BUN 9.7 Creatinine 0.6 Est GFR (CKD-EPI)AfAm 164.25 Est GFR (CKD-EPI)NonAf 141.72 Random Glucose 104 Calcium 9.0 Phosphorus 3.8 Magnesium 1.8 Total Bilirubin 0.3 AST 84 H ALT 166 H Alkaline Phosphatase 152 H Total Protein 7.5 Albumin 3.0 L Active Medications Generic Name Dose Route Start Last Admin Trade Name Freq PRN Reason Stop Dose Admin Acetaminophen 750 mg 06/02/19 14:29 06/06/19 13:18 Tylenol Oral Solution - GT 750 mg Q8H PRN Administration FEVER Acyclovir 400 mg 06/02/19 10:00 01/29/20 09:59 Zovirax Oral Suspension - GT 400 mg BID JORGE Administration Albuterol/Ipratropium 1 amp 06/02/19 00:23 06/07/19 20:35 Duoneb - NEB 1 amp QID PRN Administration WHEEZING Bacitracin 1 applic 06/02/19 10:00 06/08/19 09:59 Bacitracin - TP 1 applic BID JORGE Administration Baclofen 10 mg 06/02/19 10:00 06/08/19 09:58 Lioresal - GT 10 mg BID JORGE Administration Budesonide 1 amp 06/02/19 08:00 06/07/19 21:42 Pulmicort 0.25 Mg Nebulizer - NEB 1 amp RBID JORGE Administration Clobazam 10 mg 06/02/19 22:00 06/07/19 21:45 Onfi - GT 10 mg HS JORGE Administration Clobazam 5 mg 06/02/19 10:00 06/08/19 09:57 Onfi - GT 5 mg DAILY JORGE Administration Clonazepam 1.5 mg 06/02/19 06:15 06/08/19 05:52 Klonopin - GT 1.5 mg TID JORGE Administration Famotidine 10 mg 06/02/19 10:00 06/08/19 09:59 Pepcid NR 10 mg BID JORGE Administration Fluticasone Propionate 2 spray 06/02/19 07:00 06/08/19 06:03 Flonase - NS 2 sprays AM JORGE Administration Heparin Sodium (Porcine) 5,000 unit 06/02/19 10:00 06/08/19 09:58 Heparin - SQ 5,000 unit BID JORGE Administration Propofol 1,000,000 mcg in 100 mls @ 1.034 mls/hr 06/02/19 02:15 06/08/19 05: 51 Diprivan - IVPB Not Given TITR JORGE Protocol 5 MCG/KG/MIN Piperacillin Sod/Tazobactam 50 mls @ 100 mls/hr 06/02/19 18:00 06/08/19 09:55 Sod 3.375 gm/ Dextrose IVPB 100 mls/hr Q8H-IV JORGE Administration Protocol Lactobacillus Acidophilus 1 tab 06/02/19 10:00 06/08/19 09:59 Bacid - GT 1 tab DAILY JORGE Administration Lamotrigine 200 mg 06/02/19 10:00 06/08/19 09:58 Lamictal - PO 200 mg BID JORGE Administration Magnesium Hydroxide 20 ml 06/02/19 10:00 06/08/19 09:56 Milk Of Magnesia - GT 20 ml BID JORGE Administration Methylprednisolone Sodium Succinate 40 mg 06/02/19 02:45 06/08/19 09:57 Solu-Medrol - IVPUSH 40 mg Q8H-IV JORGE Administration Multivitamins/Minerals 15 ml 06/02/19 10:00 06/08/19 09:56 Certavite-Antioxidant Liquid GT 15 ml DAILY JORGE Administration Phenobarbital 48.6 mg 06/02/19 10:00 06/08/19 09:59 Phenobarbital Liquid - GT 48.6 mg BID JORGE Administration Sodium Chloride 2 spray 06/03/19 22:00 06/08/19 09:58 [place] - NS 2 sprays BID JORGE Administration ASSESSMENT/PLAN: 24 y/o/m [place] resident with PMHx significant of CP, epilepsy, herpes encephalitis, GERD, and aspiration pneumonia. He was sent to the ER after he developed a non productive cough and was noticed to be warm to the touch, crying frequently, and short of breath. Was admitted for management of sepsis 2/ 2 pneumonia. #Sepsis 2/2 Pneumonia and Influenza - following daily CXR, slight increase in pulmonary and pleural changes on left side - WBC elevated today, will monitor - Influenza A positive, Tamiflu course completed - Lactic acid normalized - Blood, urine cx, urine for Strep/Legionella negative to date - Sputum gram stain growing Pseudomonas - quantity few - Vanc/Zosyn given in ED - Continue Zosyn - ID consulted (Dr. Harrison) #Hypoxic respiratory distress - Respiratory distress likely 2/2 to pneumonia - Extubated yesterday, now on venti mask - CTA negative for PE, showing almost complete atelectasis of left lung - Continue home Pulmicort nebs - Solu-medrol 40mg IV Q8hr #Hx of seizures - Currently asymptomatic - Continue home anti-seizure meds #Polycythemia - H&H 17.4/51.1 on admission, baseline seems to be around 13/40 as per previous records, may be relative due to stress - repeat CBCs with improvement. H&H within normal limits #Transaminitis with elevated ALP - Patient has had elevated liver enzymes upon previous admissions - Likely 2/2 to medication side effect, continue to monitor - RUQ U/S to r/o pathology #Hx of herpes encephalitis - Continue acyclovir 400 BID #DVT ppx - Heparin SQ #FEN - LR @75mls/hr - Tube feeds started through PEG tube - Monitor and replete lytes as needed #Dispo - transferred to floors from ICU. wean oxygen as tolerated Visit type - Emergency Visit Emergency Visit: Yes ED Registration Date: 06/01/19 Care time: The patient presented to the Emergency Department on the above date and was hospitalized for further evaluation of their emergent condition. - New Patient This patient is new to me today: No - Critical Care Critical Care patient: No ATTENDING PHYSICIAN STATEMENT I saw and evaluated the patient. I reviewed the resident's note and discussed the case with the resident. I agree with the resident's findings and plan as documented. SUBJECTIVE: OBJECTIVE: ASSESSMENT AND PLAN:
--- NOTE | 2019-06-08 12:39 | PN ---
Teaching Attending Note Name of Resident: Halima Camacho ATTENDING PHYSICIAN STATEMENT I saw and evaluated the patient. I reviewed the resident's note and discussed the case with the resident. I agree with the resident's findings and plan as documented. SUBJECTIVE: non-verbal, unable to participate in medical interview OBJECTIVE: Afebrile. Extubated to high flow via NC 06/07. Hemodynamically Stable. Last Vital Signs Temp Pulse Resp BP Pulse Ox 98.1 F 92 H 22 H 107/56 L 93 L 06/08/19 12:00 06/08/19 12:00 06/08/19 12:00 06/08/19 12:00 06/08/19 09:00 HEENT - Atraumatic, currently SpO2 97% on ventimask 8L. Heart - S1, S2, RRR Lungs - good air entry bilaterally - some wheeze. Abdomen - soft. PEG in situ. Bowel Sounds normal. Extremities - wasting, contractures LEs. Laboratory Results - last 24 hr 06/08/19 06/08/19 06/08/19 05:35 06:00 09:29 WBC Cancelled 10.8 H Corrected WBC (auto) Cancelled RBC Cancelled 4.17 Hgb Cancelled 14.0 Hct Cancelled 41.4 D MCV Cancelled 99.2 H MCH Cancelled 33.6 MCHC Cancelled 33.9 RDW Cancelled 13.5 Plt Count Cancelled 209 D MPV Cancelled 9.7 Absolute Neuts (auto) Cancelled 5.9 Neutrophils % Cancelled 54.7 Lymphocytes % Cancelled 37.6 Monocytes % Cancelled 6.7 Eosinophils % Cancelled 0.8 D Basophils % Cancelled 0.2 Nucleated RBC % Cancelled 0 Platelet Estimate Cancelled Platelet Comment Cancelled Sodium 143 Potassium 4.1 Chloride 110 H Carbon Dioxide 27 Anion Gap 6 L BUN 9.7 Creatinine 0.6 Est GFR (CKD-EPI)AfAm 164.25 Est GFR (CKD-EPI)NonAf 141.72 Random Glucose 104 Calcium 9.0 Phosphorus 3.8 Magnesium 1.8 Total Bilirubin 0.3 AST 84 H ALT 166 H Alkaline Phosphatase 152 H Total Protein 7.5 Albumin 3.0 L Current Medications Generic Name Dose Route Start Last Admin Trade Name Freq PRN Reason Stop Dose Admin Acetaminophen 750 mg 06/02/19 14:29 06/06/19 13:18 Tylenol Oral Solution - GT 750 mg Q8H PRN Administration FEVER Acyclovir 400 mg 06/02/19 10:00 06/08/19 09:59 Zovirax Oral Suspension - GT 400 mg BID JORGE Administration Albuterol/Ipratropium 1 amp 06/02/19 00:23 06/07/19 20:35 Duoneb - NEB 1 amp QID PRN Administration WHEEZING Bacitracin 1 applic 06/02/19 10:00 06/08/19 09:59 Bacitracin - TP 1 applic BID JORGE Administration Baclofen 10 mg 06/02/19 10:00 06/08/19 09:58 Lioresal - GT 10 mg BID JORGE Administration Budesonide 1 amp 06/02/19 08:00 06/07/19 21:42 Pulmicort 0.25 Mg Nebulizer - NEB 1 amp RBID JORGE Administration Clobazam 10 mg 06/02/19 22:00 06/07/19 21:45 Onfi - GT 10 mg HS JORGE Administration Clobazam 5 mg 06/02/19 10:00 06/08/19 09:57 Onfi - GT 5 mg DAILY JORGE Administration Clonazepam 1.5 mg 06/02/19 06:15 06/08/19 05:52 Klonopin - GT 1.5 mg TID JORGE Administration Famotidine 10 mg 06/02/19 10:00 06/08/19 09:59 Pepcid NR 10 mg BID JORGE Administration Fluticasone Propionate 2 spray 06/02/19 07:00 06/08/19 06:03 Flonase - NS 2 sprays AM JORGE Administration Heparin Sodium (Porcine) 5,000 unit 06/02/19 10:00 06/08/19 09:58 Heparin - SQ 5,000 unit BID JORGE Administration Propofol 1,000,000 mcg in 100 mls @ 1.034 mls/hr 06/02/19 02:15 06/08/19 05: 51 Diprivan - IVPB Not Given TITR JORGE Protocol 5 MCG/KG/MIN Piperacillin Sod/Tazobactam 50 mls @ 100 mls/hr 06/02/19 18:00 06/08/19 09:55 Sod 3.375 gm/ Dextrose IVPB 100 mls/hr Q8H-IV JORGE Administration Protocol Lactobacillus Acidophilus 1 tab 06/02/19 10:00 06/08/19 09:59 Bacid - GT 1 tab DAILY JORGE Administration Lamotrigine 200 mg 06/02/19 10:00 06/08/19 09:58 Lamictal - PO 200 mg BID JORGE Administration Magnesium Hydroxide 20 ml 06/02/19 10:00 06/08/19 09:56 Milk Of Magnesia - GT 20 ml BID JORGE Administration Methylprednisolone Sodium Succinate 40 mg 06/02/19 02:45 06/08/19 09:57 Solu-Medrol - IVPUSH 40 mg Q8H-IV JORGE Administration Multivitamins/Minerals 15 ml 06/02/19 10:00 06/08/19 09:56 Certavite-Antioxidant Liquid GT 15 ml DAILY JORGE Administration Phenobarbital 48.6 mg 06/02/19 10:00 06/08/19 09:59 Phenobarbital Liquid - GT 48.6 mg BID JORGE Administration Sodium Chloride 2 spray 06/03/19 22:00 06/08/19 09:58 [place] Nasal [place] - NS 2 sprays BID JORGE Administration Home Medications Medication Instructions Recorded Acyclovir 400 mg GT BID 04/25/17 Baclofen 10 mg GT BID 04/25/17 Clobazam [Onfi -] 10 mg GT HS 04/25/17 Clonazepam 1.5 mg GT TID 04/25/17 Lactobacillus Acidophilus 1 each GT HS 04/25/17 [Acidophilus] Lamotrigine 200 mg GT BID 04/25/17 Multivitamin [Poly-Vitamin] 1 each GT HS 04/25/17 Phenobarbital 48.6 mg GT BID 04/25/17 Ranitidine [Zantac -] 75 mg GT BID #0 tab 03/29/18 Diazepam Rectal Gel [Diastat 7.5 mg [place] PRN PRN 05/23/18 Rectal Gel -] Protein Supplement [Promod] 946 ml GT DAILY 05/23/18 Budesonide [Pulmicort 0.25 mg 1 neb IH BID 02/05/19 Nebulizer -] Fluticasone Prop 0.05% Nasal 2 spray NS AM 02/05/19 [Flonase -] Magnesium Hydrox 2400MG/30Ml [Milk 20 ml GT BID 02/05/19 of Magnesia -] Albuterol 2.5/Ipratropium 0.5 1 neb IH QID PRN #30 neb 02/14/19 [Duoneb -] Clobazam [Onfi -] 5 mg GT DAILY #30 tablet MDD 5mg 02/14/19 /24h Bacitracin - [Bacitracin Topical 1 applic TP BID 06/01/19 Ointment -] Sodium Chloride/Aloe Vera [[place] 22 ml NS BID 06/01/19 Saline Nasal Gel [place]] ASSESSMENT AND PLAN: 24 year old male [place] resident with history of Cerebral Palsy, Developmental Delay, cognitive impairment, functional quadriplegia, seizure disorder, Hx of herpes encephalitis, GERD, Asthma/reactive airway disease, and Hx of aspiration pneumonia, presented with cough and SOB. 1. Acute Hypoxic Respiratory failure and Sepsis secondary to Influenza + Pneumonia with Acute Asthma/reactive airways exacerbation CXR/CT Chest - L basal consolidation Sputum Cx - Pseudomonas. Extubated 06/07/18 Completed 5 days Tamiflu. Continue Zosyn. Urine legionella negative. Bronchodilator Nebs, Solumedrol as per Pulm (normally on Budesonide NEB at home) ID/Pulm following. Transfer to floor - continue to wean down O2 requirements. 2. Seizure disorder - continue anti-seizure regimen (Clonazepam, Lamotrigene, Phenobarbital) 3. Elevated Transaminases ?sec to Sepsis ? Abx Abdominal US requested to exclude biliary pathology. 4. Hx of herpes encephalitis - maintained on Acyclovir DVT Px - Heparin SQ GI Px - on H2 levi
[2019-06-08] MEDS ORDERED: ALBUTEROL SO4 2.5/IPRATROPIUM 0.5 INH SOL 3 ML VIAL.NEB. NEB PRN (15:48)
[2019-06-08] MEDS ORDERED: PROPOFOL 1,000,000 MCG/100 ML VIAL IVPB SCH (15:48)
[2019-06-08] MEDS ORDERED: ACETAMINOPHEN 650 MG/20.3 ML ORAL SOLUTION (CUPS) GT PRN (15:48)
[2019-06-08] MEDS: BUDESONIDE 0.25 MG/2ML INH SUSP VIAL NEB SCH (20:15)
[2019-06-08] MEDS ORDERED: cloBAZam 10 MG TABLET GT SCH (22:00)
[2019-06-09] MEDS ORDERED: PIPERACILLIN/TAZOBACTAM 3.375 GM VIAL IVPB ONE ×2 (02:49→10:04)
[2019-06-09] MEDS ORDERED: DEXTROSE 5%-WATER - 50 ML IVPB ONE ×2 (02:49→10:04)
[2019-06-09] MEDS: ACYCLOVIR 200 MG/5 ML LIQUID GT SCH ×3 (03:08→10:51)
[2019-06-09] MEDS: PIPERACILLIN/TAZOB 3.375 GM 3.375 GM in DEXTROSE 5%-WATER - 50 ML IVPB SCH ×2 (03:09→10:10)
[2019-06-09] MEDS: methylPREDNISolone NA SUCC 40 MG/1 ML VIAL IVPUSH SCH ×2 (03:09→10:09)
[2019-06-09] MEDS: BACLOFEN 10 MG TABLET (FP) GT SCH ×2 (03:09→10:13)
[2019-06-09] MEDS ORDERED: FLUTICASONE PROP 0.05% 16 GM NASAL SPRAY NS SCH (07:00)
[2019-06-09] MEDS: clonazePAM 0.5 MG TABLET GT SCH ×2 (07:08→14:57)
[2019-06-09 07:21] LABS: HEMATOCRIT 42.9 % (35.4-49); HEMOGLOBIN 15.1 GM/dL (11.7-16.9); MCH 34.8 pg (25.7-33.7); MCHC 35.1 g/dl (32.0-35.9); MEAN PLT VOLUME 9.7 fl (7.5-11.1); PLATELET COUNT 265 K/MM3 (134-434); RBC 4.33 M/mm3 (4.00-5.60); RDW 13.5 % (11.9-15.9); WHITE BLOOD COUNT 10.1 K/mm3 (4.0-10.0)
[2019-06-09 07:49] LABS: ALBUMIN 3.6 g/dl (3.4-5.0); BILIRUBIN,TOTAL 1.1 mg/dL (0.2-1); BLOOD UREA NITROGEN 18.1 mg/dL (7-18); CALCIUM 9.1 mg/dL (8.5-10.1); CREATININE 0.7 mg/dL (0.55-1.3); MAGNESIUM 2.5 mg/dL (1.8-2.4); PHOSPHOROUS 3.7 mg/dL (2.5-4.9); POTASSIUM 4.2 mmol/L (3.5-5.1); TOT PROT 8.6 g/dl (6.4-8.2)
[2019-06-09] MEDS: BUDESONIDE 0.25 MG/2ML INH SUSP VIAL NEB SCH (08:45)
[2019-06-09] MEDS ORDERED: MULTIVIT-MINERALS ORAL LIQUID GT SCH (10:00)
[2019-06-09] MEDS ORDERED: LACTOBACILLUS ACIDOPHILUS 1 TABLET GT SCH (10:00)
[2019-06-09] MEDS ORDERED: cloBAZam 10 MG TABLET GT SCH (10:00)
[2019-06-09] MEDS: lamoTRIgine 100 MG TABLET PO SCH (10:11)
[2019-06-09] MEDS: HEPARIN NA (PORCINE) 5,000 UNITS/ML 1ML VIAL SQ SCH (10:11)
[2019-06-09] MEDS: SODIUM CHLORIDE NASAL SPRAY 44 ML BOTTLE NS SCH (10:12)
[2019-06-09] MEDS: MAGNESIUM HYDROX 2400MG/30ML ORAL SUSPENSION 30 ML CUP GT SCH (10:13)
[2019-06-09] MEDS: BACITRACIN 15 GM TUBE TOPICAL OINTMENT TP SCH (10:14)
[2019-06-09] MEDS: PHENobarbital 20 MG/5 ML UNIT-DOSE CUP GT SCH (10:19)
[2019-06-09] MEDS: FAMOTIDINE 40 MG/5 ML ORAL SUSPENSION NR SCH (10:52)
--- NOTE | 2019-06-09 12:01 | PN ---
Teaching Attending Note Name of Resident: Halima Camacho ATTENDING PHYSICIAN STATEMENT I saw and evaluated the patient. I reviewed the resident's note and discussed the case with the resident. I agree with the resident's findings and plan as documented. SUBJECTIVE: non-verbal, unable to participate in medical interview OBJECTIVE: Afebrile. Extubated to high flow via NC 06/07. Now comfortable on Room Air. Hemodynamically Stable. Last Vital Signs Temp Pulse Resp BP Pulse Ox 98.6 F 81 18 105/60 93 L 06/09/19 08:55 06/09/19 08:55 06/09/19 08:55 06/09/19 08:55 06/09/19 09:04 HEENT - Atraumatic, currently SpO2 95% RA Heart - S1, S2, RRR Lungs - good air entry bilaterally Abdomen - soft. PEG in situ. Bowel Sounds normal. Extremities - wasting, contractures LEs. Laboratory Results - last 24 hr 06/09/19 06/09/19 06:30 06:30 WBC 10.1 H RBC 4.33 Hgb 15.1 Hct 42.9 MCV 99.0 H MCH 34.8 H MCHC 35.1 RDW 13.5 Plt Count 265 D MPV 9.7 Sodium 137 Potassium 4.2 Chloride 103 Carbon Dioxide 27 Anion Gap 7 L BUN 18.1 H Creatinine 0.7 Est GFR (CKD-EPI)AfAm 154.17 Est GFR (CKD-EPI)NonAf 133.02 Random Glucose 107 H Calcium 9.1 Phosphorus 3.7 Magnesium 2.5 H Total Bilirubin 1.1 H AST 53 H ALT 148 H Alkaline Phosphatase 188 H Total Protein 8.6 H Albumin 3.6 Current Medications Generic Name Dose Route Start Last Admin Trade Name Freq PRN Reason Stop Dose Admin Acetaminophen 750 mg 06/08/19 15:48 06/08/19 23:16 Tylenol Oral Solution - GT 750 mg Q8H PRN Administration FEVER Acyclovir 400 mg 06/08/19 22:00 06/09/19 10:51 Zovirax Oral Suspension - GT 400 mg BID JORGE Administration Albuterol/Ipratropium 1 amp 06/08/19 15:48 Duoneb - NEB QID PRN WHEEZING Bacitracin 1 applic 06/08/19 22:00 06/09/19 10:14 Bacitracin - TP 1 applic BID JORGE Administration Baclofen 10 mg 06/08/19 22:00 06/09/19 10:13 Lioresal - GT 10 mg BID JORGE Administration Budesonide 1 amp 06/08/19 20:00 06/09/19 08:45 Pulmicort 0.25 Mg Nebulizer - NEB Not Given RBID JORGE Clobazam 10 mg 06/08/19 22:00 06/08/19 23:17 Onfi - GT 10 mg HS JORGE Administration Clobazam 5 mg 06/09/19 10:00 06/09/19 10:11 Onfi - GT 5 mg DAILY JORGE Administration Clonazepam 1.5 mg 06/08/19 22:00 06/09/19 07:08 Klonopin - GT 1.5 mg TID JORGE Administration Famotidine 10 mg 06/08/19 22:00 06/09/19 10:52 Pepcid NR 10 mg BID JORGE Administration Fluticasone Propionate 2 spray 06/09/19 07:00 06/09/19 07:08 Flonase - NS 2 sprays AM JORGE Administration Heparin Sodium (Porcine) 5,000 unit 06/08/19 22:00 06/09/19 10:11 Heparin - SQ 5,000 unit BID JORGE Administration Piperacillin Sod/Tazobactam 50 mls @ 100 mls/hr 06/08/19 18:00 06/09/19 10:10 Sod 3.375 gm/ Dextrose IVPB 100 mls/hr Q8H-IV JORGE Administration Protocol Lactobacillus Acidophilus 1 tab 06/09/19 10:00 06/09/19 10:14 Bacid - GT 1 tab DAILY JORGE Administration Lamotrigine 200 mg 06/08/19 22:00 06/09/19 10:11 Lamictal - PO 200 mg BID JORGE Administration Magnesium Hydroxide 20 ml 06/08/19 22:00 06/09/19 10:13 Milk Of Magnesia - GT 20 ml BID JORGE Administration Methylprednisolone Sodium Succinate 40 mg 06/08/19 18:00 06/09/19 10:09 Solu-Medrol - IVPUSH 40 mg Q8H-IV JORGE Administration Multivitamins/Minerals 15 ml 06/09/19 10:00 06/09/19 10:52 Certavite-Antioxidant Liquid GT 15 ml DAILY JORGE Administration Phenobarbital 48.6 mg 06/08/19 22:00 06/09/19 10:19 Phenobarbital Liquid - GT 48.6 mg BID JORGE Administration Sodium Chloride 2 spray 06/08/19 22:00 06/09/19 10:12 [place] Nasal [place] - NS 2 sprays BID JORGE Administration Home Medications Medication Instructions Recorded Acyclovir 400 mg GT BID 04/25/17 Baclofen 10 mg GT BID 04/25/17 Clobazam [Onfi -] 10 mg GT HS 04/25/17 Clonazepam 1.5 mg GT TID 04/25/17 Lactobacillus Acidophilus 1 each GT HS 04/25/17 [Acidophilus] Lamotrigine 200 mg GT BID 04/25/17 Multivitamin [Poly-Vitamin] 1 each GT HS 04/25/17 Phenobarbital 48.6 mg GT BID 04/25/17 Ranitidine [Zantac -] 75 mg GT BID #0 tab 03/29/18 Diazepam Rectal Gel [Diastat 7.5 mg [place] PRN PRN 05/23/18 Rectal Gel -] Protein Supplement [Promod] 946 ml GT DAILY 05/23/18 Budesonide [Pulmicort 0.25 mg 1 neb IH BID 02/05/19 Nebulizer -] Fluticasone Prop 0.05% Nasal 2 spray NS AM 02/05/19 [Flonase -] Magnesium Hydrox 2400MG/30Ml [Milk 20 ml GT BID 02/05/19 of Magnesia -] Albuterol 2.5/Ipratropium 0.5 1 neb IH QID PRN #30 neb 02/14/19 [Duoneb -] Clobazam [Onfi -] 5 mg GT DAILY #30 tablet MDD 5mg 02/14/19 /24h Bacitracin - [Bacitracin Topical 1 applic TP BID 06/01/19 Ointment -] Sodium Chloride/Aloe Vera [[place] 22 ml NS BID 06/01/19 Saline Nasal Gel [place]] ASSESSMENT AND PLAN: 24 year old male [place] resident with history of Cerebral Palsy, Developmental Delay, cognitive impairment, functional quadriplegia, seizure disorder, Hx of herpes encephalitis, GERD, Asthma/reactive airway disease, and Hx of aspiration pneumonia, presented with cough and SOB. 1. Acute Hypoxic Respiratory failure and Sepsis secondary to Influenza + Pneumonia with Acute Asthma/reactive airways exacerbation CXR/CT Chest - L basal consolidation Sputum Cx - Pseudomonas. Extubated 1/28/19 Completed 5 days Tamiflu. Completed Zosyn course. Urine legionella negative. Bronchodilator Nebs, Steroid taper. Continue Budesonide NEB at home. Afebrile, hemodynamically stable. ID/Pulm input appreciated. Medically stable for transfer back to [place]. Discussed with Dr. Valentino. 2. Seizure disorder - continue anti-seizure regimen (Clonazepam, Lamotrigene, Phenobarbital) 3. Elevated Transaminases - improving ?sec to Sepsis ? Abx Abdominal US negative for biliary pathology. 4. Hx of herpes encephalitis - maintained on Acyclovir medicaly optimized for transfer to [place].
--- NOTE | 2019-06-09 12:14 | DS ---
Physical Exam: SUBJECTIVE: Patient seen and examined. No acute events overnight. patient now smiling when his name is called. More active than prior. OBJECTIVE: Vital Signs Period Temp Pulse Resp BP Sys/Linares Pulse Ox Last 24 Hr 98.3 F-99.2 F 59-89 18-22 94-126/49-75 93-97 PHYSICAL EXAM GENERAL: no acute distress HEAD: Normal with no signs of trauma. EYES: EOMI ENT: dry mucous membranes NECK: Trachea midline, full range of motion, supple. LUNGS: clear to auscultation bilaterally, no accessory muscle use HEART: RRR ABDOMEN: soft, NT, ND, no guarding. PEG tube in place EXTREMITIES: 2+ pulses, warm, well-perfused, no edema. contracted upper and lower extremities NEUROLOGICAL: smiles when name is called PSYCH: Normal mood, normal affect SKIN: Warm, dry, normal turgor LABS Laboratory Results - last 24 hr 06/09/19 06/09/19 06:30 06:30 WBC 10.1 H RBC 4.33 Hgb 15.1 Hct 42.9 MCV 99.0 H MCH 34.8 H MCHC 35.1 RDW 13.5 Plt Count 265 D MPV 9.7 Sodium 137 Potassium 4.2 Chloride 103 Carbon Dioxide 27 Anion Gap 7 L BUN 18.1 H Creatinine 0.7 Est GFR (CKD-EPI)AfAm 154.17 Est GFR (CKD-EPI)NonAf 133.02 Random Glucose 107 H Calcium 9.1 Phosphorus 3.7 Magnesium 2.5 H Total Bilirubin 1.1 H AST 53 H ALT 148 H Alkaline Phosphatase 188 H Total Protein 8.6 H Albumin 3.6 HOSPITAL COURSE: Date of Admission:06/01/19 Date of Discharge: 06/09/19 24 y/o/m [place] resident with PMHx significant of CP, epilepsy, herpes encephalitis, GERD, and aspiration pneumonia. He was sent to the ER after he developed a non productive cough and was noticed to be warm to the touch, crying frequently, and short of breath. Patient was admitted to ICU due to acute hypoxic respiratoyr failure and sepsis 2/2 pneumonia and flu. CXR and CT showed left basal consolidation. Completed 5 day course of Tamiflu and course of zosyn for PNA. Patient was difficult to extubate due to poor tidal volumes but was extubated successfully on 1/28. Weaned to room air successfully. Patient was started on steroids while intubated and discharged on a steroid taper (40mg x2days, 20mg x2days, 10mg x2days). Abdominal U/S was completed and did not show any abnormalities. Home medications were continued appropriately. Patient stable for discharge back to [facility]. Minutes to complete discharge: 36 Discharge Summary Problems reviewed: Yes Reason For Visit: INFLUENZA DUE TO INFLUENZA VIRUS, TYPE A, HUMAN Current Active Problems Dehydration fever (Acute) Dependence on continuous supplemental oxygen (Acute) Fever (Acute) Influenza A (Acute) Tachycardia (Acute) Condition: Guarded - Instructions Diet, Activity, Other Instructions: You presented to the hospital with a cough, fever and shortness of breath. You were found to be positive for the flu and were also diagnosed with pneumonia. You completed a course of Tamiflu for 5 days and completed a course of antibiotics for pneumonia as well. You were intubated due to respiratory distress when you were were admitted and successfully extubated by the ICU team as your condition improved. You were started on steroids while admitted to help improve your condition and will be discharged on a steroid taper. You had an ultrasound completed of your abdomen which did not show any abnormalities. Medication Changes: 1. You will need to continue taking Steroids for 6 more days. You will take 40mg for 2 days (06/10-06/11) You will take 20mg for 2 days (06/12-06/13) You will take 10mg for 2 days (06/14-06/15) Follow up with the following physicians: 1. Please follow up with your primary care provider Dr. Valentino, upon return to [facility]. Activity and Diet 1. Continue feeds as tolerated through peg tube. Continue all your other medications as prescribed Please return to the ER if you have any signs or symptoms of chest pain, shortness of breath, uncontrollable fever, chills, nausea, vomiting, numbness, tingling, or weakness in any part of your body, changes in vision, or slurred speech. Please return to the ER if symptoms persist, worsen, or new symptoms arise. Referrals: Jose Luis Valentino Jr [Non Staff, Medical] - Disposition: ASSISTED FACILITY - Home Medications Comprehensive Discharge Medication List: Ambulatory Orders Acyclovir 400 mg GT BID 04/25/17 Baclofen 10 mg GT BID 04/25/17 Clobazam [Onfi -] 10 mg GT HS 04/25/17 Clonazepam 1.5 mg GT TID 04/25/17 Lactobacillus Acidophilus [Acidophilus] 1 each GT HS 04/25/17 Lamotrigine 200 mg GT BID 04/25/17 Multivitamin [Poly-Vitamin] 1 each GT HS 04/25/17 Phenobarbital 48.6 mg GT BID 04/25/17 Ranitidine [Zantac -] 75 mg GT BID #0 tab 03/29/18 Diazepam Rectal Gel [Diastat Rectal Gel -] 7.5 mg [place] PRN PRN 05/23/18 Protein Supplement [Promod] 946 ml GT DAILY 05/23/18 Budesonide [Pulmicort 0.25 mg Nebulizer -] 1 neb IH BID 02/05/19 Fluticasone Prop 0.05% Nasal [Flonase -] 2 spray NS AM 02/05/19 Magnesium Hydrox 2400MG/30Ml [Milk of Magnesia -] 20 ml GT BID 02/05/19 Albuterol 2.5/Ipratropium 0.5 [Duoneb -] 1 neb IH QID PRN #30 neb 02/14/19 Clobazam [Onfi -] 5 mg GT DAILY #30 tablet MDD 5mg /24h 02/14/19 Bacitracin - [Bacitracin Topical Ointment -] 1 applic TP BID 06/01/19 Sodium Chloride/Aloe Vera [[place] Saline Nasal Gel [place]] 22 ml NS BID 06/01/19 This patient is new to me today: Yes Date on this admission: 06/09/19 Emergency Visit: No Critical Care patient: No - Discharge Referral Referred to [facility] Med [facility].C[facility] No ATTENDING PHYSICIAN STATEMENT I saw and evaluated the patient. I reviewed the resident's note and discussed the case with the resident. I agree with the resident's findings and plan as documented. SUBJECTIVE: OBJECTIVE: ASSESSMENT AND PLAN:
--- NOTE | 2019-06-09 12:33 | PN ---
Progress Note (short form) - Note Progress Note: PULMONARY Pt nonverbal. No fevers recorded. Vital Signs Period Temp Pulse Resp BP Sys/Linares Pulse Ox Last 24 Hr 98.3 F-99.2 F 59-89 18-22 94-126/49-75 93-97 Gen: NAD at rest Heart: RRR Lung: decreased breath sounds at the bases Abd: soft, nontender Ext: no edema, contracted CBC, BMP 06/09/19 06:30 06/09/19 06:30 Active Medications Acetaminophen (Tylenol Oral Solution -) 750 mg GT Q8H PRN PRN Reason: FEVER Last Admin: 06/08/19 23:16 Dose: 750 mg Acyclovir (Zovirax Oral Suspension -) 400 mg GT BID [facility] Last Admin: 06/09/19 10:51 Dose: 400 mg Albuterol/Ipratropium (Duoneb -) 1 amp NEB QID PRN PRN Reason: WHEEZING Bacitracin (Bacitracin -) 1 applic TP BID [facility] Last Admin: 06/09/19 10:14 Dose: 1 applic Baclofen (Lioresal -) 10 mg GT BID [facility] Last Admin: 06/09/19 10:13 Dose: 10 mg Budesonide (Pulmicort 0.25 Mg Nebulizer -) 1 amp NEB RBID [facility] Last Admin: 06/09/19 08:45 Dose: Not Given Clobazam (Onfi -) 10 mg GT HS [facility] Last Admin: 06/08/19 23:17 Dose: 10 mg Clobazam (Onfi -) 5 mg GT DAILY [facility] Last Admin: 06/09/19 10:11 Dose: 5 mg Clonazepam (Klonopin -) 1.5 mg GT TID [facility] Last Admin: 06/09/19 07:08 Dose: 1.5 mg Famotidine (Pepcid) 10 mg NR BID [facility] Last Admin: 06/09/19 10:52 Dose: 10 mg Fluticasone Propionate (Flonase -) 2 spray NS AM [facility] Last Admin: 06/09/19 07:08 Dose: 2 sprays Heparin Sodium (Porcine) (Heparin -) 5,000 unit SQ BID [facility] Last Admin: 06/09/19 10:11 Dose: 5,000 unit Piperacillin Sod/Tazobactam (Sod 3.375 gm/ Dextrose) 50 mls @ 100 mls/hr IVPB Q8H-IV JORGE; Protocol Last Admin: 06/09/19 10:10 Dose: 100 mls/hr Lactobacillus Acidophilus (Bacid -) 1 tab GT DAILY [facility] Last Admin: 06/09/19 10:14 Dose: 1 tab Lamotrigine (Lamictal -) 200 mg PO BID JORGE Last Admin: 06/09/19 10:11 Dose: 200 mg Magnesium Hydroxide (Milk Of Magnesia -) 20 ml GT BID [facility] Last Admin: 06/09/19 10:13 Dose: 20 ml Methylprednisolone Sodium Succinate (Solu-Medrol -) 40 mg IVPUSH Q8H-IV JORGE Last Admin: 06/09/19 10:09 Dose: 40 mg Multivitamins/Minerals (Certavite-Antioxidant Liquid) 15 ml GT DAILY [facility] Last Admin: 06/09/19 10:52 Dose: 15 ml Phenobarbital (Phenobarbital Liquid -) 48.6 mg GT BID [facility] Last Admin: 06/09/19 10:19 Dose: 48.6 mg Sodium Chloride ([place] Nasal [place] -) 2 spray NS BID [facility] Last Admin: 06/09/19 10:12 Dose: 2 sprays A/P Acute Hypoxic Respiratory Failure improved Influenza A Pneumonia Sepsis Lactic Acidosis Cerebral Palsy Mental Retardation Seizure Disorder GERD - complete antibiotics - can change steroids to PO prednisone 40mg daily and taper as outpt - inhaled bronchodilators - aspiration precautions - monitor urine output, creatinine - DVT/GI prophylaxis
[2019-06-09 14:15] VITALS: BP 105/54; PULSE 93; TEMP 98.4
== END 2019-06-09 16:52 | DRG 720 ==
LOC: JER 18:53 → JERBED 22:00 → JICU 06-02 02:25 → JERBED 06-08 11:40 → J4S 06-08 11:41
PROVIDERS: ADMIT Internal Medicine
PROC: 5A1955Z Respiratory Ventilation, Greater than 96 Consecutive Hours (ICD-10-PCS; principal; 2019-06-01)
PROC: 0BH17EZ Insertion of Endotracheal Airway into Trachea, Via Natural or Artificial Opening (ICD-10-PCS; 2019-06-01)
DX: A41.89 Other specified sepsis (principal); G80.9 Cerebral palsy, unspecified; G40.909 Epilepsy, unspecified, not intractable, without status epilepticus; K21.9 Gastro-esophageal reflux disease without esophagitis; K59.09 Other constipation; R13.10 Dysphagia, unspecified; E86.0 Dehydration; J10.08 Influenza due to other identified influenza virus with other specified pneumonia; R53.2 Functional quadriplegia; F72 Severe intellectual disabilities; J96.01 Acute respiratory failure with hypoxia; E87.2 Acidosis; D75.1 Secondary polycythemia; J45.901 Unspecified asthma with (acute) exacerbation; R74.0 Nonspecific elevation of levels of transaminase and lactic acid dehydrogenase [LDH]
CPT/HCPCS: 36415; 36600; 71045-TC-FY; 71275-TC; 76705-TC; 80048; 80053; 81003; 82803; 82962; 83605; 83735; 83880; 84100; 84484; 85025; 85027; 85610; 85730; 86850; 86900; 86901; 87040; 87070; 87086; 87186; 87205; 87804; 87899; 93005; 93010; 93306-TC; 94002; 94640; 99285-25; J0131; J0475; J1644; J7030; Q9967

== ENCOUNTER 2019-06-11 09:33 | Inpatient (IN) | payer OTHER ==
--- NOTE | 2019-06-11 09:49 | PDOC ---
History of Present Illness - General Chief Complaint: Shortness of Breath Stated Complaint: SHORTNESS OF BREATH Time Seen by Provider: 06/11/19 09:40 - History of Present Illness Initial Comments: 06/11/19 09:49 HPI: 24 y/o M from [place] with hx of CP, epilepsy, herpes encephalitis, GERD, and aspiration pneumonia recently discharged from [facility] 2 days ago after being treated for sepsis 2/2 PNA and flu requiring intubation and ICU admission presenting with SOB and new oxygen requirements. Currently 98% on 4LNC and cough with congestive sounds. PMHx: as noted above ROS: as noted SHx: at [place], with G tube, does not follow commands Allergies: NKDA ROS: unable to perform due to mental status PE: GENERAL: lying in bed HEAD: No signs of trauma EYES: EOMI, sclera anicteric, conjunctiva clear ENT: Auricles normal inspection, hearing grossly normal, nares patent, oropharynx clear without exudates. Moist mucosa NECK: Normal ROM, no lymphadenopathy LUNGS: symmetrical chest rise, coarse breath sounds throughout HEART: tachycardia, regular rhythm, normal S1 and S2, no murmur, peripheral pulses 2+ and equal bilaterally. ABDOMEN: Soft, nondistended, nontender, normoactive bowel sounds. No guarding, no rebound. No masses. No CVAT. G tube present MUSCULOSKELETAL: FROM NEUROLOGICAL: limited by mental status SKIN: Warm, Dry, normal turgor, no rashes or lesions noted Past History - Past Medical History Allergies/Adverse Reactions: Allergies Allergy/AdvReac Type Severity Reaction Status Date / Time No Known Allergies Allergy Verified 06/11/19 09:59 Home Medications: Ambulatory Orders Acyclovir 400 mg GT BID 04/25/17 Baclofen 10 mg GT BID 04/25/17 Clobazam [Onfi -] 10 mg GT HS 04/25/17 Clonazepam 1.5 mg GT TID 04/25/17 Lactobacillus Acidophilus [Acidophilus] 1 each GT HS 04/25/17 Lamotrigine 200 mg GT BID 04/25/17 Multivitamin [Poly-Vitamin] 1 each GT HS 04/25/17 Phenobarbital 48.6 mg GT BID 04/25/17 Ranitidine [Zantac -] 75 mg GT BID #0 tab 03/29/18 Diazepam Rectal Gel [Diastat Rectal Gel -] 7.5 mg [place] PRN PRN 05/23/18 Protein Supplement [Promod] 946 ml GT DAILY 05/23/18 Budesonide [Pulmicort 0.25 mg Nebulizer -] 1 neb IH BID 02/05/19 Fluticasone Prop 0.05% Nasal [Flonase -] 2 spray NS AM 02/05/19 Magnesium Hydrox 2400MG/30Ml [Milk of Magnesia -] 20 ml GT BID 02/05/19 Albuterol 2.5/Ipratropium 0.5 [Duoneb -] 1 neb IH QID PRN #30 neb 02/14/19 Clobazam [Onfi -] 5 mg GT DAILY #30 tablet MDD 5mg /24h 02/14/19 Bacitracin - [Bacitracin Topical Ointment -] 1 applic TP BID 06/01/19 Sodium Chloride/Aloe Vera [[place] Saline Nasal Gel [place]] 22 ml NS BID 06/01/19 predniSONE [Deltasone -] 10 mg PEG DAILY #2 tablet 06/09/19 predniSONE [Deltasone -] 20 mg PEG DAILY #6 tablet 06/09/19 Anemia: No Asthma: Yes Cancer: No Cardiac Disorders: No CVA: No COPD: No CHF: No Dementia: No Diabetes: No GI Disorders: Yes (DYSPHAGIA. CONSTIPATION. GERD.) Disorders: No HTN: No Hypercholesterolemia: No Liver Disease: No Psychiatric Problems: Yes (MR) Seizures: Yes (EPILEPSY) Thyroid Disease: No - Surgical History Abdominal Surgery: Yes (GT PLACEMENT) Appendectomy: No Cardiac Surgery: No Cholecystectomy: No Lung Surgery: No Neurologic Surgery: No Orthopedic Surgery: Yes (l hip pinning, r hip osteotomy) - Psycho Social/Smoking Cessation Hx Smoking Status: No Smoking History: Never smoked Have you smoked in the past 12 months: No Number of Cigarettes Smoked Daily: 0 Hx Alcohol Use: No Drug/Substance Use Hx: No Substance Use Type: None Hx Substance Use Treatment: No ED Treatment Course - LABORATORY CBC & Chemistry Diagram: 06/11/19 10:30 06/11/19 10:30 Medical Decision Making - Medical Decision Making 06/11/19 13:29 24 y/o M from [place] with hx of CP, epilepsy, herpes encephalitis, GERD, and aspiration pneumonia recently discharged from [facility] 2 days ago after being treated for sepsis 2/2 PNA and flu requiring intubation and ICU admission presenting with SOB and new oxygen requirements. T 100.6 HR 110. PE with coarse breath sounds throughout. -septic order set, abg -patient did not fully improve on zosyn therapy; hx of klebsiella and pseudomonas with resistance to zosyn; will administer vanc, gent, azithro 06/11/19 13:31 ABG Results ABG pH 7.46 (7.35-7.45) H 06/11/19 11:31 ABG pCO2 at Pt Temp 38.0 mmHg (35-45) 06/11/19 11:31 ABG pO2 at Pt Temp 66.6 mmHg (80-100) L 06/11/19 11:31 ABG HCO3 26.7 mmol/L (22-27) 06/11/19 11:31 ABG O2 Sat (Measured) 93.3 % (95-98) L 06/11/19 11:31 ABG O2 Content 23.9 % vol 06/11/19 11:31 ABG Base Excess 3.4 meq/l (-2-2) H 06/11/19 11:31 Patient being suctioned, ABG iwthout significant signs of retention will admit; accepted to Dr hernández med surg Discharge - Discharge Information Problems reviewed: Yes Clinical Impression/Diagnosis: SOB (shortness of breath) - Follow up/Referral - Patient Discharge Instructions - Post Discharge Activity
[2019-06-11] MEDS ORDERED: VANCOMYCIN 1 GM PREMIX - 1 GM/200 ML BAG IVPB ONE (11:05)
[2019-06-11] MEDS ORDERED: GENTAMICIN INJECTION 200 MG in SODIUM CHLORIDE 100 ML IVPB ONE (11:06)
[2019-06-11] MEDS ORDERED: AZITHROMYCIN IVPB 500 MG in DEXTROSE 5%-WATER - 250 ML IVPB ONE (11:06)
[2019-06-11] MEDS ORDERED: SODIUM CHLORIDE 1,000 ML IV STA (11:15)
[2019-06-11] MEDS ORDERED: ACETAMINOPHEN 1000 MG/100 ML VIAL (NON FORMULARY) IVPB ONE (11:15)
[2019-06-11 11:16] LABS: ARTERIAL BLD GAS O2 SATURATION 98.9 % (95-98); ARTERIAL BLOOD GAS BASE EXCESS 4.6 meq/l (-2-2); ARTERIAL BLOOD GAS PCO2 40.4 mmHg (35-45); ARTERIAL BLOOD GAS PO2 162 mmHg (80-100); ARTERIAL BLOOD GAS pH 7.46 (7.35-7.45)
[2019-06-11] MEDS ORDERED: ACETAMINOPHEN INJECTION 100 ML IVPB ONE (11:16)
[2019-06-11] MEDS ORDERED: AZITHROMYCIN IVPB 500 MG/250 ML BAG IVPB ONE (11:17)
[2019-06-11 11:20] LABS: BASO % 0.1 % (0-2.0); EOS % 0.1 % (0-4.5); HEMATOCRIT 40.6 % (35.4-49); HEMOGLOBIN 13.8 GM/dL (11.7-16.9); LYMPH % 9.6 % (8-40); MCH 33.9 pg (25.7-33.7); MCHC 33.9 g/dl (32.0-35.9); MEAN CELL VOLUME 100.1 fl (80-96); MEAN PLT VOLUME 9.9 fl (7.5-11.1); MONO % 4.4 % (3.8-10.2); NEUT % 85.8 % (42.8-82.8); PLATELET COUNT 297 K/MM3 (134-434); RBC 4.06 M/mm3 (4.00-5.60); RDW 13.3 % (11.9-15.9); WHITE BLOOD COUNT 18.8 K/mm3 (4.0-10.0)
[2019-06-11 11:42] LABS: ALBUMIN 3.4 g/dl (3.4-5.0); ALK PHOS 168 U/L (45-117); ANION GAP 8 MMOL/L (8-16); BILIRUBIN,TOTAL 0.2 mg/dL (0.2-1); BLOOD UREA NITROGEN 16.5 mg/dL (7-18); CALCIUM 8.9 mg/dL (8.5-10.1); CHLORIDE 102 mmol/L (98-107); CO2 24 mmol/L (21-32); CREATININE 0.6 mg/dL (0.55-1.3); GLUCOSE,RANDOM 107 mg/dL (74-106); POTASSIUM 3.8 mmol/L (3.5-5.1); SGOT/AST 20 U/L (15-37); SGPT/ALT 85 U/L (13-61); SODIUM 134 mmol/L (136-145); TOT PROT 7.8 g/dl (6.4-8.2)
--- NOTE | 2019-06-11 11:47 | PDOC ---
Documentation entered by Rosalinda Samaniego SCRIBE, acting as scribe for Jose Andrews MD. Jose Andrews MD: This documentation has been prepared by the Danette turner Xhesika, SCRIBE, under my direction and personally reviewed by me in its entirety. I confirm that the documentation accurately reflects all work, treatment, procedures, and medical decision making performed by me. Attending Attestation - Resident Resident Name: Lluvia Watt - ED Attending Attestation I have performed the following: I have examined & evaluated the patient, The case was reviewed & discussed with the resident, I agree w/resident's findings & plan, Exceptions are as noted - HPI HPI: 06/11/19 09:57 The patient is a 24 year old male with a significant PMH of Cerebral palsy, Epilepsy, asthma, Herpes encephalitis, GERD who presents to the emergency department [facility] for SOB. Pt is unable to contribute to HPI secondary to severe MR. Pt was seen and admitted at [facility] 06/01/2019 and treated for PNA and flu requiring intubation and ICU admission. Allergies: NKDA Surgical History: GT placement, left hip pinning, right hip osteotomy Social History: Profound intellectual disabilities PCP: Dr. Valentino - Physicial Exam PE: 06/11/19 09:56 GENERAL: Awake, alert, non verbal in mild resp distress HEAD: No signs of trauma EYES: PERRLA, EOMI, sclera anicteric, conjunctiva clear ENT: Oropharynx clear without exudates. Moist mucosa NECK: Normal ROM, supple, no lymphadenopathy, JVD, or masses LUNGS: rhoncherous BS b/l, +tachypnea to 30s with subcostal retracitons HEART: Regular rate and rhythm, normal S1 and S2, no murmurs, rubs or gallops ABDOMEN: Soft, non distended, G tube in place EXTREMITIES: contracted x4 NEUROLOGICAL: Non verbal, contracted x4 SKIN: Warm, Dry, normal turgor, no rashes or lesions noted. - Critical Care Time Total Critical Care Time: 120 Critical Care Statement: The care of this patient involved high complexity decision making to prevent further life threatening deterioration of the patient 's condition and/or to evaluate & treat vital organ system(s) failure or risk of failure. - Medical Decision Making 06/11/19 10:49 24-year-old male, severe MR, cerebral palsy, recent admission for flu and respiratory failure requiring intubation presents to the emergency department with shortness of breath. [facility] patient was hypoxic and has a new O2 requirement. Concern for recurrent PNA. Pt with hx of zosyn resistant klebs, mendel resistant pseudomonas - will cover with vanc for MRSA and gent to cover pseudomonas/klebs (sensitive in the past) and azithro for atypical coverage Will initiate sepsis w/u, including ABG to assess resp status Also ordering 30cc/kg Anticipate admission 06/11/19 12:10 Case discussed with admitted medical team by Dr. Watt Case discussed in detail with admitting physician including history, physical exam and ancillary studies. Admitting physician has assumed care for the patient, will follow all pending diagnostics and will complete the evaluation and treatment. 06/11/19 13:53 Pt with worsening respiratory status, increasing tachypnea, desatting to low 80s Pt with no mental status for positive pressure support Decision made to intubate pt 06/11/19 15:16 Pt intubated with 6.5 ETT using glidescope. Sedation with ketamine/rocc Initial attempt wih 7.5, then 7.0 tube but difficulty passing tube Cords visibly edematous likely 2/2 recent intubation last wk O2 sat down to 92% but improved with bagging to 98% prior to 3rd attempt Sedation with versed, 2mg bolus, gtt started at 2mg Pt began to munoz vent, responded well to fentanyl 100mcg Gave another bolus 2mg versed, increased gtt to 4mg /hr Post intubation film with ET tube in good position, however radiologist visualized opacity in RLL, can not r/o pneumoperitoneum. Recommends CT chest non con to visualize upper abdomen which has been ordered. Heart Score/ECG Review #1 06/11/19 10:48 Twelve-lead EKG was performed and reviewed by me. Normal sinus rhythm, rate 96. Right axis deviation. No ST elevations.
[2019-06-11] MEDS ORDERED: SODIUM CHLORIDE 0.9% 1000 ML INFUS.BAG IV ONE (12:10)
[2019-06-11 12:16] LABS: ARTERIAL BLD GAS O2 SATURATION 93.3 % (95-98); ARTERIAL BLOOD GAS BASE EXCESS 3.4 meq/l (-2-2); ARTERIAL BLOOD GAS PO2 66.6 mmHg (80-100); ARTERIAL BLOOD GAS pH 7.46 (7.35-7.45); CARBOXYHEMOGLOBIN 0.7 % (0-2)
[2019-06-11 12:18] LABS: ALLENS TEST POSITIVE
[2019-06-11 12:28] LABS: EPI CELLS 0.9 /HPF (0-5/HPF); HYALINE CASTS 0 /lpf (0-8); PH,URINE 8.5 (5.0-8.0); URINE APPEARANCE CLEAR; URINE BACTERIA 6.5 /hpf (NEGATIVE); URINE BILIRUBIN NEGATIVE (NEGATIVE); URINE COLOR YELLOW; URINE GLUCOSE (UA) NEGATIVE (NEGATIVE); URINE KETONE NEGATIVE (NEGATIVE); URINE LEUK ESTERASE NEGATIVE (NEGATIVE); URINE NITRITE NEGATIVE (NEGATIVE); URINE PROTEIN NEGATIVE (NEGATIVE); URINE RBC 345 /hpf (0-4); URINE UROBILINOGEN 0.2 mg/dL (0.2-1.0); URINE WBC 2 /hpf (0-5)
[2019-06-11] MEDS ORDERED: VANCOMYCIN 1 GRAM (PRE-DOCKED) 1,000 MG/250 ML BAG IVPB ONE (13:27)
[2019-06-11] MEDS ORDERED: KETAMINE HCL 200 MG/20 ML VIAL ONE (13:48)
[2019-06-11] MEDS ORDERED: SODIUM CHLORIDE 500 ML IV STA (13:51)
[2019-06-11] MEDS ORDERED: PIPERACILLIN/TAZOB 3.375 GM 3.375 GM in DEXTROSE 5%-WATER - 50 ML IVPB SCH (14:15)
--- NOTE | 2019-06-11 14:42 | HP ---
PCP: Dr. Valentino HISTORY OF PRESENT ILLNESS: 24 y/o M from [place] with hx of CP, epilepsy, herpes encephalitis, GERD, and aspiration pneumonia recently discharged from [facility] 2 days ago after being treated for sepsis 2/2 PNA and flu requiring intubation and ICU admission. Pt presenting with SOB and new oxygen requirements. Pt satting 98% on 4LNC with profuse coughing. Per chart from [facility], pt O2 sat was at 85% on RA, but after 4L O2 it improved to 93%, with a pulse of 125, RR of 60/min. Pt was subsequently suctioned twice and given nebulizer treatments which was not helping his respiratory status. Pt was recently discharged on steroid taper after 5 day tamiflu Rx and zosyn regimen for sputum cx positive for pseudomonas. ER course was notable for: (1)Azithro, genta, and vanco given (2)IV fluid 11/2 L boluses given to help improve BP to 100/50, L.A. 1.6, UA 2+ blood w rbc's (3)CXR- ? infiltrate vs atelectasis in retrocardiac area Recent Travel: none Allergies No Known Allergies Allergy (Verified 06/11/19 09:59) HOME MEDICATIONS: Home Medications Medication Instructions Recorded Acyclovir 400 mg GT BID 04/25/17 Baclofen 10 mg GT BID 04/25/17 Clobazam [Onfi -] 10 mg GT HS 04/25/17 Clonazepam 1.5 mg GT TID 04/25/17 Lactobacillus Acidophilus 1 each GT HS 04/25/17 [Acidophilus] Lamotrigine 200 mg GT BID 04/25/17 Multivitamin [Poly-Vitamin] 1 each GT HS 04/25/17 Phenobarbital 48.6 mg GT BID 04/25/17 Ranitidine [Zantac -] 75 mg GT BID #0 tab 03/29/18 Diazepam Rectal Gel [Diastat 7.5 mg [place] PRN PRN 05/23/18 Rectal Gel -] Protein Supplement [Promod] 946 ml GT DAILY 05/23/18 Budesonide [Pulmicort 0.25 mg 1 neb IH BID 02/05/19 Nebulizer -] Fluticasone Prop 0.05% Nasal 2 spray NS AM 02/05/19 [Flonase -] Magnesium Hydrox 2400MG/30Ml [Milk 20 ml GT BID 02/05/19 of Magnesia -] Albuterol 2.5/Ipratropium 0.5 1 neb IH QID PRN #30 neb 02/14/19 [Duoneb -] Clobazam [Onfi -] 5 mg GT DAILY #30 tablet MDD 5mg 02/14/19 /24h Bacitracin - [Bacitracin Topical 1 applic TP BID 06/01/19 Ointment -] Sodium Chloride/Aloe Vera [[place] 22 ml NS BID 06/01/19 Saline Nasal Gel [employer]] predniSONE [Deltasone -] 10 mg PEG DAILY #2 tablet 06/09/19 predniSONE [Deltasone -] 20 mg PEG DAILY #6 tablet 06/09/19 REVIEW OF SYSTEMS unable to assess PHYSICAL EXAMINATION Vital Signs - 24 hr 06/11/19 06/11/19 06/11/19 09:33 10:51 12:11 Temperature 100.6 F H 100.4 F H Pulse Rate 110 H Pulse Rate [ 90 Right] Respiratory 18 38 H Rate Blood Pressure 112/71 Blood Pressure 95/56 L [Right Arm] O2 Sat by Pulse 98 94 L Oximetry (%) 06/11/19 06/11/19 06/11/19 12:41 12:43 13:33 Temperature Pulse Rate Pulse Rate [ Right] Respiratory 25 H Rate Blood Pressure Blood Pressure 91/48 L 101/54 L [Right Arm] O2 Sat by Pulse 93 L Oximetry (%) 06/11/19 06/11/19 13:47 14:04 Temperature Pulse Rate Pulse Rate [ 90 77 Right] Respiratory 18 Rate Blood Pressure Blood Pressure 88/50 L 100/50 L [Right Arm] O2 Sat by Pulse 96 Oximetry (%) GENERAL: Awake, coughing profusely, emitting gurgling and sounds of congestion. LUNGS: Breath sounds equal, diffuse congestion b/l, rhonchorous b/l HEART: regular rate and rhythm, normal S1 and S2 without murmur, rub or gallop. ABDOMEN: Soft, nontender, not distended, normoactive bowel sounds, no guarding, no rebound, no masses. No hepatomegaly or splenomegaly. MUSCULOSKELETAL: Normal range of motion at all joints. No bony deformities or tenderness. No CVA tenderness. LOWER EXTREMITIES: 2+ pulses, warm, well-perfused. No calf tenderness. No peripheral edema. NEUROLOGICAL: hx of CP, unable to assess PSYCHIATRIC: at baseline SKIN: Warm, dry, no rashes or lesions noted, Laboratory Results - last 24 hr 06/11/19 06/11/19 06/11/19 10:30 10:30 10:30 WBC 18.8 H RBC 4.06 Hgb 13.8 Hct 40.6 MCV 100.1 H MCH 33.9 H MCHC 33.9 RDW 13.3 Plt Count 297 MPV 9.9 Absolute Neuts (auto) 16.1 H Neutrophils % 85.8 H D Lymphocytes % 9.6 D Monocytes % 4.4 Eosinophils % 0.1 D Basophils % 0.1 Nucleated RBC % 0 Anticoagulation Therapy No Result Required. Puncture Site No Result Required. ABG pH 7.46 H ABG pCO2 at Pt Temp 40.4 ABG pO2 at Pt Temp 162 H ABG HCO3 28.3 H ABG O2 Sat (Measured) 98.9 H ABG O2 Content 28.3 ABG Base Excess 4.6 H K[place] Test No Result Required. Carboxyhemoglobin Methemoglobin O2 Delivery Device No Result Required. Oxygen Flow Rate No Result Required. Vent Mode No Result Required. Vent Rate No Result Required. Mechanical Rate No Result Required. Pressure Support Vent No Result Required. Sodium 134 L Potassium 3.8 Chloride 102 Carbon Dioxide 24 Anion Gap 8 BUN 16.5 Creatinine 0.6 Est GFR (CKD-EPI)AfAm 164.25 Est GFR (CKD-EPI)NonAf 141.72 Random Glucose 107 H Lactic Acid Calcium 8.9 Total Bilirubin 0.2 AST 20 ALT 85 H Alkaline Phosphatase 168 H Troponin I < 0.02 Total Protein 7.8 Albumin 3.4 Urine Color Urine Appearance Urine pH Ur Specific [place] Urine Protein Urine Glucose (UA) Urine Ketones Urine Blood Urine Nitrite Urine Bilirubin Urine Urobilinogen Ur Leukocyte Esterase Urine WBC (Auto) Urine RBC (Auto) Urine Casts (Auto) U Epithel Cells (Auto) Urine Bacteria (Auto) 06/11/19 06/11/19 06/11/19 10:30 10:50 11:31 WBC RBC Hgb Hct MCV MCH MCHC RDW Plt Count MPV Absolute Neuts (auto) Neutrophils % Lymphocytes % Monocytes % Eosinophils % Basophils % Nucleated RBC % Anticoagulation Therapy No Result Required. Puncture Site Right radial ABG pH 7.46 H ABG pCO2 at Pt Temp 38.0 ABG pO2 at Pt Temp 66.6 L ABG HCO3 26.7 ABG O2 Sat (Measured) 93.3 L ABG O2 Content 23.9 ABG Base Excess 3.4 H K[place]hal Test Positive Carboxyhemoglobin 0.7 Methemoglobin < 1.0 O2 Delivery Device No Result Required. Oxygen Flow Rate No Result Required. Vent Mode No Result Required. Vent Rate No Result Required. Mechanical Rate No Result Required. Pressure Support Vent No Result Required. Sodium Potassium Chloride Carbon Dioxide Anion Gap BUN Creatinine Est GFR (CKD-EPI)AfAm Est GFR (CKD-EPI)NonAf Random Glucose Lactic Acid 1.6 Calcium Total Bilirubin AST ALT Alkaline Phosphatase Troponin I Total Protein Albumin Urine Color Yellow Urine Appearance Clear Urine pH 8.5 H Ur Specific [place] 1.014 Urine Protein Negative Urine Glucose (UA) Negative Urine Ketones Negative Urine Blood 2+ H Urine Nitrite Negative Urine Bilirubin Negative Urine Urobilinogen 0.2 Ur Leukocyte Esterase Negative Urine WBC (Auto) 2 Urine RBC (Auto) 345 Urine Casts (Auto) 0 U Epithel Cells (Auto) 0.9 Urine Bacteria (Auto) 6.5 ASSESSMENT/PLAN: 24 y/o M from [place] with hx of CP, epilepsy, herpes encephalitis, GERD, and aspiration pneumonia recently discharged from [facility] 2 days ago after being treated for sepsis 2/2 PNA and flu requiring intubation and ICU admission. Pt presenting with SOB and new oxygen requirements. Pt satting 98% on 4LNC with profuse coughing. Per chart from [facility], pt O2 sat was at 85% on RA, but after 4L O2 it improved to 93%, with a pulse of 125, RR of 60/min. #Acute Hypoxic Respiratory failure with sepsis 2/2 likely aspiration PNA - CXR showing ? left side infiltrate vs atelectasis in retrocardiac area, UA 2+ Blood with 345 rbc's - pt has positive sputum cx pseudomonas as of 06/02 - pt desatted to the mid s on 100% nonrebreather prompting intubation - ICU consulted await recommendations - given IV zosyn 3.375, genta, azithro, vanco in ED - ID Dr Harrison consulted - ABG showing hypoxia and 7.46 pH, not hypercapnic - rpt abg pending after intubation - will not rpt flu given pt recently finished tamiflu regimen - wbc- 18.8, on steroids but left with wbc of 10 so likely worsened with PNA. - BC, UA Cx sent - UA legionella, strep PNA sent - Chest CT ordered w/o contrast to assess ? infiltrate #Seizure disorder - continue anti-seizure regimen - Clonazepam, Lamotrigene, Phenobarbital #Hx of herpes Encephalitis - maintained on Acyclovir # Recent elevation in transaminases ? sepsis related/Abx related US Abdo - no acute pathology. ALT 85 DVT: Hep 5K TID Visit type - Emergency Visit Emergency Visit: Yes ED Registration Date: 06/11/19 Care time: The patient presented to the Emergency Department on the above date and was hospitalized for further evaluation of their emergent condition. - New Patient This patient is new to me today: Yes Date on this admission: 06/11/19 - Critical Care Critical Care patient: Yes Total Critical Care Time (in minutes): 35 Critical Care Statement: The care of this patient involved high complexity decision making to prevent further life threatening deterioration of the patient 's condition and/or to evaluate & treat vital organ system(s) failure or risk of failure. ATTENDING PHYSICIAN STATEMENT I saw and evaluated the patient. I reviewed the resident's note and discussed the case with the resident. I agree with the resident's findings and plan as documented. SUBJECTIVE: OBJECTIVE: ASSESSMENT AND PLAN:
[2019-06-11] MEDS: MIDAZOLAM HCL 2 MG/2 ML SINGLE DOSE VIAL IVPUSH ONE ×2 (14:45→15:27)
[2019-06-11] MEDS ORDERED: MIDAZOLAM HCL 2 MG/2 ML SINGLE DOSE VIAL IVPUSH ONE (14:47)
[2019-06-11] MEDS ORDERED: MIDAZOLAM HCL 2 MG/2 ML SINGLE DOSE VIAL ONE ×2 (14:48→15:21)
[2019-06-11] MEDS ORDERED: MIDAZOLAM IN 0.9 % SOD.CHLORID 100 MG/100 ML PLAST..BAG IVPB SCH (15:00)
[2019-06-11] MEDS ORDERED: MIDAZOLAM IN 0.9 % SOD.CHLORID 1 MG/1 ML PLAST..BAG ONE (15:06)
[2019-06-11] MEDS: MIDAZOLAM IN 0.9 % SOD.CHLORID 100 MG/100 ML PLAST..BAG IVPB SCH (15:17)
[2019-06-11] MEDS: HEPARIN NA (PORCINE) 5,000 UNITS/ML 1ML VIAL SQ SCH ×2 (15:18→21:21)
[2019-06-11] MEDS ORDERED: ROCURONIUM BROMIDE 50 MG/5 ML VIAL IVPUSH ONE (15:37)
[2019-06-11] MEDS ORDERED: KETAMINE HCL 200 MG/20 ML VIAL IVPUSH ONE (15:37)
--- NOTE | 2019-06-11 15:37 | EKG ---
Test Reason : Blood Pressure : / mmHG Vent. Rate : 096 BPM Atrial Rate : 096 BPM P-R Int : 130 ms QRS Dur : 094 ms QT Int : 342 ms P-R-T Axes : 047 095 019 degrees QTc Int : 432 ms NORMAL SINUS RHYTHM RIGHTWARD AXIS CANNOT RULE OUT INFERIOR INFARCT (CITED ON OR BEFORE 26-JUN-2016) POSTERIOR INFARCT NONSPECIFIC ST ABNORMALITY ABNORMAL ECG Confirmed by MD LIUDMILA, WARNER ([id number]) on 06/11/2019 3:37:01 PM Referred By: Confirmed By:WARNER NUR MD
[2019-06-11] MEDS ORDERED: diazePAM ACUDIAL 5-7.5-10 MG 1 EACH KIT RC PRN (15:45)
--- NOTE | 2019-06-11 16:13 | CONSULT ---
Consultation: REQUESTING PROVIDER: Dr. Galindo CONSULT REQUEST: We have been asked to medically evaluate this patient for ICU management after respiratory failure. HISTORY OF PRESENT ILLNESS: 24M PMH CP, epilepsy, herpes encephalitis, GERD, and aspiration pneumonia discharged from [facility] 2 days ago after being treated for sepsis secondary to PNA and flu requiring intubation. Patient was sent back from [facility] today due to SOB and increased oxygen requirements. Was initially saturating 98% on 4L NC in the ED. Patient was noted to have large amount of secretions and cough, was suctioned twice. Patient was noted to continue desaturating to 88% and was intubated. Patient was given gentamicin, azithromycin, and zoysn in the ED. REVIEW OF SYSTEMS: Patient unable to complete. CONSTITUTIONAL: Absent: fever, chills, diaphoresis, generalized weakness, malaise, loss of appetite, weight change HEENT: Absent: rhinorrhea, nasal congestion, throat pain, throat swelling, difficulty swallowing, mouth swelling, ear pain, eye pain, visual changes CARDIOVASCULAR: Absent: chest pain, syncope, palpitations, irregular heart rate, lightheadedness, peripheral edema RESPIRATORY: Absent: cough, shortness of breath, dyspnea with exertion, orthopnea, wheezing, stridor, hemoptysis GASTROINTESTINAL: Absent: abdominal pain, abdominal distension, nausea, vomiting, diarrhea, constipation, melena, hematochezia GENITOURINARY: Absent: dysuria, frequency, urgency, hesitancy, hematuria, flank pain, genital pain MUSCULOSKELETAL: Absent: myalgia, arthralgia, joint swelling, back pain, neck pain SKIN: Absent: rash, itching, pallor HEMATOLOGIC/IMMUNOLOGIC: Absent: easy bleeding, easy bruising, lymphadenopathy, frequent infections ENDOCRINE: Absent: unexplained weight gain, unexplained weight loss, heat intolerance, cold intolerance NEUROLOGIC: Absent: headache, focal weakness or paresthesias, dizziness, unsteady gait, seizure, mental status changes, bladder or bowel incontinence PSYCHIATRIC: Absent: anxiety, depression, suicidal or homicidal ideation, hallucinations. PHYSICAL EXAMINATION Vital Signs - 24 hr 06/11/19 06/11/19 06/11/19 09:33 10:51 12:11 Temperature 100.6 F H 100.4 F H Pulse Rate 110 H Pulse Rate [ 90 Right] Respiratory 18 38 H Rate Blood Pressure 112/71 Blood Pressure 95/56 L [Right Arm] O2 Sat by Pulse 98 94 L Oximetry (%) 06/11/19 06/11/19 06/11/19 12:41 12:43 13:33 Temperature Pulse Rate Pulse Rate [ Right] Respiratory 25 H Rate Blood Pressure Blood Pressure 91/48 L 101/54 L [Right Arm] O2 Sat by Pulse 93 L Oximetry (%) 06/11/19 06/11/19 06/11/19 13:47 14:04 14:11 Temperature Pulse Rate Pulse Rate [ 90 77 81 Right] Respiratory 18 18 Rate Blood Pressure Blood Pressure 88/50 L 100/50 L 99/55 L [Right Arm] O2 Sat by Pulse 96 94 L Oximetry (%) 06/11/19 06/11/19 06/11/19 14:13 14:14 14:16 Temperature Pulse Rate Pulse Rate [ 100 H 111 H 112 H Right] Respiratory 24 H Rate Blood Pressure Blood Pressure 110/75 137/87 152/94 [Right Arm] O2 Sat by Pulse 97 Oximetry (%) 06/11/19 06/11/19 06/11/19 14:18 14:20 14:41 Temperature Pulse Rate Pulse Rate [ 107 H 95 H Right] Respiratory 25 H Rate Blood Pressure Blood Pressure 149/85 153/89 [Right Arm] O2 Sat by Pulse 92 L 95 98 Oximetry (%) 06/11/19 06/11/19 06/11/19 15:00 15:11 15:27 Temperature Pulse Rate Pulse Rate [ 49 L 74 68 Right] Respiratory 21 H Rate Blood Pressure Blood Pressure 122/81 127/97 [Right Arm] O2 Sat by Pulse 100 100 Oximetry (%) 06/11/19 15:39 Temperature Pulse Rate Pulse Rate [ 67 Right] Respiratory Rate Blood Pressure Blood Pressure 110/64 [Right Arm] O2 Sat by Pulse Oximetry (%) GENERAL: Sedated, intubated. HEAD: Normocephalic EARS, NOSE, THROAT: Copious amounts of secretions. LUNGS: Rhonchi present bilaterally. HEART: Regular rate and rhythm, normal S1 and S2 without murmur, rub or gallop. ABDOMEN: PEG tube present, no erythema around site. Soft, nontender, not distended, normoactive bowel sounds, no guarding, no rebound, no masses. . MUSCULOSKELETAL:Patient currently contracted. UPPER EXTREMITIES: 2+ pulses, warm, well-perfused. No cyanosis. No clubbing. Cap refill <2 seconds. No peripheral edema. LOWER EXTREMITIES: 2+ pulses, warm, well-perfused. No calf tenderness. No peripheral edema. NEUROLOGICAL: Unable to assess. SKIN: Maculopapular rash on chest. Laboratory Results - last 24 hr 06/11/19 06/11/19 06/11/19 10:30 10:30 10:30 WBC 18.8 H RBC 4.06 Hgb 13.8 Hct 40.6 MCV 100.1 H MCH 33.9 H MCHC 33.9 RDW 13.3 Plt Count 297 MPV 9.9 Absolute Neuts (auto) 16.1 H Neutrophils % 85.8 H D Lymphocytes % 9.6 D Monocytes % 4.4 Eosinophils % 0.1 D Basophils % 0.1 Nucleated RBC % 0 Anticoagulation Therapy No Result Required. Puncture Site No Result Required. ABG pH 7.46 H ABG pCO2 at Pt Temp 40.4 ABG pO2 at Pt Temp 162 H ABG HCO3 28.3 H ABG O2 Sat (Measured) 98.9 H ABG O2 Content 28.3 ABG Base Excess 4.6 H Kaushal Test No Result Required. Carboxyhemoglobin Methemoglobin O2 Delivery Device No Result Required. Oxygen Flow Rate No Result Required. Vent Mode No Result Required. Vent Rate No Result Required. Mechanical Rate No Result Required. Pressure Support Vent No Result Required. Sodium 134 L Potassium 3.8 Chloride 102 Carbon Dioxide 24 Anion Gap 8 BUN 16.5 Creatinine 0.6 Est GFR (CKD-EPI)AfAm 164.25 Est GFR (CKD-EPI)NonAf 141.72 Random Glucose 107 H Lactic Acid Calcium 8.9 Total Bilirubin 0.2 AST 20 ALT 85 H Alkaline Phosphatase 168 H Troponin I < 0.02 Total Protein 7.8 Albumin 3.4 Urine Color Urine Appearance Urine pH Ur Specific [place] Urine Protein Urine Glucose (UA) Urine Ketones Urine Blood Urine Nitrite Urine Bilirubin Urine Urobilinogen Ur Leukocyte Esterase Urine WBC (Auto) Urine RBC (Auto) Urine Casts (Auto) U Epithel Cells (Auto) Urine Bacteria (Auto) 06/11/19 06/11/19 06/11/19 10:30 10:50 11:31 WBC RBC Hgb Hct MCV MCH MCHC RDW Plt Count MPV Absolute Neuts (auto) Neutrophils % Lymphocytes % Monocytes % Eosinophils % Basophils % Nucleated RBC % Anticoagulation Therapy No Result Required. Puncture Site Right radial ABG pH 7.46 H ABG pCO2 at Pt Temp 38.0 ABG pO2 at Pt Temp 66.6 L ABG HCO3 26.7 ABG O2 Sat (Measured) 93.3 L ABG O2 Content 23.9 ABG Base Excess 3.4 H Kaushal Test Positive Carboxyhemoglobin 0.7 Methemoglobin < 1.0 O2 Delivery Device No Result Required. Oxygen Flow Rate No Result Required. Vent Mode No Result Required. Vent Rate No Result Required. Mechanical Rate No Result Required. Pressure Support Vent No Result Required. Sodium Potassium Chloride Carbon Dioxide Anion Gap BUN Creatinine Est GFR (CKD-EPI)AfAm Est GFR (CKD-EPI)NonAf Random Glucose Lactic Acid 1.6 Calcium Total Bilirubin AST ALT Alkaline Phosphatase Troponin I Total Protein Albumin Urine Color Yellow Urine Appearance Clear Urine pH 8.5 H Ur Specific [place] 1.014 Urine Protein Negative Urine Glucose (UA) Negative Urine Ketones Negative Urine Blood 2+ H Urine Nitrite Negative Urine Bilirubin Negative Urine Urobilinogen 0.2 Ur Leukocyte Esterase Negative Urine WBC (Auto) 2 Urine RBC (Auto) 345 Urine Casts (Auto) 0 U Epithel Cells (Auto) 0.9 Urine Bacteria (Auto) 6.5 Active Medications Generic Name Dose Route Start Last Admin Trade Name Freq PRN Reason Stop Dose Admin Bacitracin 1 applic 06/11/19 22:00 Bacitracin - TP BID JORGE Baclofen 10 mg 06/11/19 22:00 Lioresal - GT BID JORGE Chlorhexidine Gluconate 1 applic 06/11/19 22:00 Hibiclens For Decolonization - TP HS JORGE Clobazam 10 mg 06/11/19 22:00 Onfi - GT HS JORGE Clobazam 5 mg 06/12/19 10:00 Onfi - GT DAILY JORGE Diazepam 7.5 mg 06/11/19 15:45 Diastat Rectal Gel - RC PRN PRN <Seizures> Fluticasone Propionate 2 spray 06/12/19 07:00 Flonase - NS AM JORGE Heparin Sodium (Porcine) 5,000 unit 06/11/19 14:00 06/11/19 15:18 Heparin - SQ 5,000 unit TID JORGE Administration Piperacillin Sod/Tazobactam 50 mls @ 100 mls/hr 06/11/19 14:15 Sod 3.375 gm/ Dextrose IVPB Q8H-IV JORGE Protocol Piperacillin Sod/Tazobactam 50 mls @ 100 mls/hr 06/11/19 14:30 Sod 3.375 gm/ Dextrose IVPB 06/12/19 14:29 Q8H-IV JORGE Midazolam HCl 100 mg in 100 mls @ 2 mls/hr 06/11/19 15:10 06/11/19 15:27 Midazolam 100mg/100ml-0.9%Nacl IVPB 06/12/19 14:59 4 mg/hr TITR JORGE 4 mls/hr Infusion Protocol 2 MG/HR Lamotrigine 200 mg 06/11/19 22:00 Lamictal - PO BID JORGE Magnesium Hydroxide 20 ml 06/11/19 22:00 Milk Of Magnesia - GT BID JORGE Mupirocin 1 applic 06/11/19 22:00 Bactroban Ointment (For Decolonization) - NS 06/16/19 21:59 BID JORGE Non-Formulary Medication 400 mg 06/11/19 22:00 Acyclovir [Acyclovir] GT BID JORGE Non-Formulary Medication 1.5 mg 06/11/19 22:00 Clonazepam [Clonazepam] GT TID JORGE Non-Formulary Medication 1 each 06/11/19 22:00 Lactobacillus Acidophilus [Acidophilus] GT HS JORGE Non-Formulary Medication 1 each 06/11/19 22:00 Multivitamin [Poly-Vitamin] GT HS JORGE Non-Formulary Medication 48.6 mg 06/11/19 22:00 Phenobarbital [Phenobarbital] GT BID JORGE Non-Formulary Medication 946 ml 06/12/19 10:00 Protein Supplement [Promod] GT DAILY JORGE Non-Formulary Medication 75 mg 06/11/19 22:00 Ranitidine [Zantac -] GT BID JORGE Non-Formulary Medication 22 ml 06/11/19 22:00 Sodium Chloride/Aloe Vera [[place] Saline Nasal Gel [place]] NS BID [facility] ASSESSMENT/PLAN: 24M PMH CP, epilepsy, herpes encephalitis, GERD, and aspiration pneumonia discharged from [facility] 2 days ago after being treated for sepsis secondary to PNA and flu requiring intubation. Neuro -Patient has hx of CP and epilepsy -Continue home medications: diazepam, clobazam, clonazepam, lamictal, phenobarbital, -Midazolam drip started initially -Propofol drip -Daily sedation vacations Cardiovascular -Pt was noted to have be bradycardic during previous admission on cardiac monitoring -EKG did not show any acute changes. Qtc of 432. -Continous cardiac monitoring Pulmonary -Acute hypoxic respiratory failure -ABG shows pH of 7.46 and PO2 of 66.6 -Patient is currently intubated, vent setting: Vt: 350, RR: 20, PEEP: -Wean trials daily GI -Patient has PEG tube. -Restart tube feeds as per dietary recommendations when available -No acute issues, will continue to monitor Renal -Hematuria on UA. Likely a result of trauma from straight cath. -Monitor electrolytes and replete PRN ID -Pt has hx of herpes encephalitis -Continue alcyclovir -Given genta, azithro, and zosyn in ED -Continue zoysn -F/U cultures F:75 ml/hr NS E: Monitor CMP N: Tube feeds as per Dietary recs. Lines: Intubated 06/11/2019. Dispo: We will continue to follow the patient. Thank you for this consultative opportunity. Visit type - Emergency Visit Emergency Visit: Yes ED Registration Date: 06/11/19 Care time: The patient presented to the Emergency Department on the above date and was hospitalized for further evaluation of their emergent condition. - New Patient This patient is new to me today: Yes Date on this admission: 06/11/19 - Critical Care Critical Care patient: Yes Total Critical Care Time (in minutes): 45 Critical Care Statement: The care of this patient involved high complexity decision making to prevent further life threatening deterioration of the patient's condition and/or to evaluate & treat vital organ system(s) failure or risk of failure. ATTENDING PHYSICIAN STATEMENT I saw and evaluated the patient. I reviewed the resident's note and discussed the case with the resident. I agree with the resident's findings and plan as documented. SUBJECTIVE: OBJECTIVE: ASSESSMENT AND PLAN:
--- NOTE | 2019-06-11 16:37 | PN ---
Teaching Attending Note Name of Resident: Maurice Watson ATTENDING PHYSICIAN STATEMENT I saw and evaluated the patient. I reviewed the resident's note and discussed the case with the resident. I agree with the resident's findings and plan as documented. SUBJECTIVE: Pt seen and examined in the ICU. Intubated, sedated. On volume assist control with 90% FiO2. No pressors. OBJECTIVE: Vital Signs Period Temp Pulse Resp BP Sys/Linares Pulse Ox Last 24 Hr 100.4 F-100.6 F 49-112 18-38 88-153/48-97 92-100 Intake & Output 06/08/19 06/09/19 06/10/19 06/11/19 23:59 23:59 23:59 23:59 Weight 39.916 kg Gen: intubated, sedated Heart: RRR Lung: decreased breath sounds at the bases Abd: soft, nontender Ext: no edema, contracted CBC, BMP 06/11/19 10:30 06/11/19 10:30 Active Medications Bacitracin (Bacitracin -) 1 applic TP BID JORGE Baclofen (Lioresal -) 10 mg GT BID JORGE Chlorhexidine Gluconate (Hibiclens For Decolonization -) 1 applic TP HS JORGE Clobazam (Onfi -) 10 mg GT HS JORGE Clobazam (Onfi -) 5 mg GT DAILY JORGE Diazepam (Diastat Rectal Gel -) 7.5 mg RC PRN PRN PRN Reason: <Seizures> Fluticasone Propionate (Flonase -) 2 spray NS AM JORGE Heparin Sodium (Porcine) (Heparin -) 5,000 unit SQ TID JORGE Last Admin: 06/11/19 15:18 Dose: 5,000 unit Piperacillin Sod/Tazobactam (Sod 3.375 gm/ Dextrose) 50 mls @ 100 mls/hr IVPB Q8H-IV JORGE; Protocol Piperacillin Sod/Tazobactam (Sod 3.375 gm/ Dextrose) 50 mls @ 100 mls/hr IVPB Q8H-IV JORGE Stop: 06/12/19 14:29 Midazolam HCl (Midazolam 100mg/100ml-0.9%Nacl) 100 mg in 100 mls @ 2 mls/hr IVPB TITR JORGE; Protocol Stop: 06/12/19 14:59 Last Infusion: 06/11/19 15:27 Dose: 4 mg/hr, 4 mls/hr Lamotrigine (Lamictal -) 200 mg PO BID JORGE Magnesium Hydroxide (Milk Of Magnesia -) 20 ml GT BID JORGE Mupirocin (Bactroban Ointment (For Decolonization) -) 1 applic NS BID JORGE Stop: 06/16/19 21:59 Non-Formulary Medication (Acyclovir [Acyclovir]) 400 mg GT BID JORGE Non-Formulary Medication (Clonazepam [Clonazepam]) 1.5 mg GT TID JORGE Non-Formulary Medication (Lactobacillus Acidophilus [Acidophilus]) 1 each GT HS JORGE Non-Formulary Medication (Multivitamin [Poly-Vitamin]) 1 each GT HS JORGE Non-Formulary Medication (Phenobarbital [Phenobarbital]) 48.6 mg GT BID JORGE Non-Formulary Medication (Protein Supplement [Promod]) 946 ml GT DAILY JORGE Non-Formulary Medication (Ranitidine [Zantac -]) 75 mg GT BID JORGE Non-Formulary Medication (Sodium Chloride/Aloe Vera [[place] Saline Nasal Gel [place]] ) 22 ml NS BID JORGE ASSESSMENT AND PLAN: Acute Hypoxic Respiratory Failure Pneumonia likely Aspiration Cerebral Palsy Mental Retardation Seizure Disorder GERD - antibiotics to cover aspiration - f/u cultures - inhaled bronchodilators - taper FiO2 to keep SpO2 >90% - IVF - monitor urine output, creatinine - enteral feeds - DVT/GI prophylaxis - ICU monitoring critical care time spent in reviewing chart, evaluating patient and formulating plan 35 min
[2019-06-11] MEDS: PROPOFOL 1,000,000 MCG/100 ML VIAL IVPB SCH (17:00)
--- NOTE | 2019-06-11 17:21 | PN ---
Teaching Attending Note Name of Resident: Nash Kennedy ATTENDING PHYSICIAN STATEMENT I saw and evaluated the patient. I reviewed the resident's note and discussed the case with the resident. I agree with the resident's findings and plan as documented. SUBJECTIVE: Intubated/mechanically ventilated, non-verbal at baseline. OBJECTIVE: Afebrile, Hemodynamically Stable. Last Vital Signs Temp Pulse Resp BP Pulse Ox 98.9 F 83 26 H 115/82 98 06/11/19 16:30 06/11/19 16:30 06/11/19 16:42 06/11/19 16:30 06/11/19 16:42 HEENT - Atraumatic, Normocephalic. Heart - S1, S2, RRR Lungs - good air entry bilaterally Abdomen - Soft, non-tender. PEG site clean. Bowel Sounds normal. Extremities - wasting, contractures. Laboratory Results - last 24 hr 06/11/19 06/11/19 06/11/19 10:30 10:30 10:30 WBC 18.8 H RBC 4.06 Hgb 13.8 Hct 40.6 MCV 100.1 H MCH 33.9 H MCHC 33.9 RDW 13.3 Plt Count 297 MPV 9.9 Absolute Neuts (auto) 16.1 H Neutrophils % 85.8 H D Lymphocytes % 9.6 D Monocytes % 4.4 Eosinophils % 0.1 D Basophils % 0.1 Nucleated RBC % 0 Anticoagulation Therapy No Result Required. Puncture Site No Result Required. ABG pH 7.46 H ABG pCO2 at Pt Temp 40.4 ABG pO2 at Pt Temp 162 H ABG HCO3 28.3 H ABG O2 Sat (Measured) 98.9 H ABG O2 Content 28.3 ABG Base Excess 4.6 H Kaushal Test No Result Required. Carboxyhemoglobin Methemoglobin O2 Delivery Device No Result Required. Oxygen Flow Rate No Result Required. Vent Mode No Result Required. Vent Rate No Result Required. Mechanical Rate No Result Required. Pressure Support Vent No Result Required. Sodium 134 L Potassium 3.8 Chloride 102 Carbon Dioxide 24 Anion Gap 8 BUN 16.5 Creatinine 0.6 Est GFR (CKD-EPI)AfAm 164.25 Est GFR (CKD-EPI)NonAf 141.72 Random Glucose 107 H Lactic Acid Calcium 8.9 Total Bilirubin 0.2 AST 20 ALT 85 H Alkaline Phosphatase 168 H Troponin I < 0.02 Total Protein 7.8 Albumin 3.4 Urine Color Urine Appearance Urine pH Ur Specific [place] Urine Protein Urine Glucose (UA) Urine Ketones Urine Blood Urine Nitrite Urine Bilirubin Urine Urobilinogen Ur Leukocyte Esterase Urine WBC (Auto) Urine RBC (Auto) Urine Casts (Auto) U Epithel Cells (Auto) Urine Bacteria (Auto) 06/11/19 06/11/19 06/11/19 10:30 10:50 11:31 WBC RBC Hgb Hct MCV MCH MCHC RDW Plt Count MPV Absolute Neuts (auto) Neutrophils % Lymphocytes % Monocytes % Eosinophils % Basophils % Nucleated RBC % Anticoagulation Therapy No Result Required. Puncture Site Right radial ABG pH 7.46 H ABG pCO2 at Pt Temp 38.0 ABG pO2 at Pt Temp 66.6 L ABG HCO3 26.7 ABG O2 Sat (Measured) 93.3 L ABG O2 Content 23.9 ABG Base Excess 3.4 H Kaushal Test Positive Carboxyhemoglobin 0.7 Methemoglobin < 1.0 O2 Delivery Device No Result Required. Oxygen Flow Rate No Result Required. Vent Mode No Result Required. Vent Rate No Result Required. Mechanical Rate No Result Required. Pressure Support Vent No Result Required. Sodium Potassium Chloride Carbon Dioxide Anion Gap BUN Creatinine Est GFR (CKD-EPI)AfAm Est GFR (CKD-EPI)NonAf Random Glucose Lactic Acid 1.6 Calcium Total Bilirubin AST ALT Alkaline Phosphatase Troponin I Total Protein Albumin Urine Color Yellow Urine Appearance Clear Urine pH 8.5 H Ur Specific [place] 1.014 Urine Protein Negative Urine Glucose (UA) Negative Urine Ketones Negative Urine Blood 2+ H Urine Nitrite Negative Urine Bilirubin Negative Urine Urobilinogen 0.2 Ur Leukocyte Esterase Negative Urine WBC (Auto) 2 Urine RBC (Auto) 345 Urine Casts (Auto) 0 U Epithel Cells (Auto) 0.9 Urine Bacteria (Auto) 6.5 Current Medications Generic Name Dose Route Start Last Admin Trade Name Freq PRN Reason Stop Dose Admin Acyclovir 400 mg 06/11/19 22:00 Zovirax Oral Suspension - GT BID JORGE Bacitracin 1 applic 06/11/19 22:00 Bacitracin - TP BID JORGE Baclofen 10 mg 06/11/19 22:00 Lioresal - GT BID JORGE Chlorhexidine Gluconate 1 applic 06/11/19 22:00 Hibiclens For Decolonization - TP HS JORGE Clobazam 10 mg 06/11/19 22:00 Onfi - GT HS JORGE Clobazam 5 mg 06/12/19 10:00 Onfi - GT DAILY JORGE Clonazepam 1.5 mg 06/11/19 22:00 Klonopin - GT TID JORGE Diazepam 7.5 mg 06/11/19 15:45 Diastat Rectal Gel - RC PRN PRN Seizures Famotidine 10 mg 06/11/19 22:00 Pepcid NGT BID [facility] Fluticasone Propionate 2 spray 06/12/19 07:00 Flonase - NS AM JORGE Heparin Sodium (Porcine) 5,000 unit 06/11/19 14:00 06/11/19 15:18 Heparin - SQ 5,000 unit TID JORGE Administration Piperacillin Sod/Tazobactam 50 mls @ 100 mls/hr 06/11/19 14:15 Sod 3.375 gm/ Dextrose IVPB Q8H-IV JORGE Protocol Piperacillin Sod/Tazobactam 50 mls @ 100 mls/hr 06/11/19 14:30 Sod 3.375 gm/ Dextrose IVPB 06/12/19 14:29 Q8H-IV JORGE Midazolam HCl 100 mg in 100 mls @ 2 mls/hr 06/11/19 15:10 06/11/19 15:27 Midazolam 100mg/100ml-0.9%Nacl IVPB 06/12/19 14:59 4 mg/hr TITR JORGE 4 mls/hr Infusion Protocol 2 MG/HR Propofol 1,000,000 mcg in 100 mls @ 1.197 mls/hr 06/11/19 16:45 Diprivan - IVPB TITR JORGE Protocol 5 MCG/KG/MIN Lactobacillus Acidophilus 1 tab 06/11/19 22:00 Bacid - GT HS JORGE Lamotrigine 200 mg 06/11/19 22:00 Lamictal - PO BID JORGE Magnesium Hydroxide 20 ml 06/11/19 22:00 Milk Of Magnesia - GT BID [facility] Multivitamins/Minerals 15 ml 06/11/19 22:00 Certavite-Antioxidant Liquid GT HS JORGE Mupirocin 1 applic 06/11/19 22:00 Bactroban Ointment (For Decolonization) - NS 06/16/19 21:59 BID [facility] Non-Formulary Medication 946 ml 06/12/19 10:00 Protein Supplement [Promod] GT DAILY JORGE Phenobarbital 45 mg 06/11/19 22:00 Phenobarbital - GT BID [facility] Sodium Chloride 2 spray 06/11/19 22:00 [place] Nasal [place] - NS BID [facility] Home Medications Medication Instructions Recorded Acyclovir 400 mg GT BID 04/25/17 Baclofen 10 mg GT BID 04/25/17 Clobazam [Onfi -] 10 mg GT HS 04/25/17 Clonazepam 1.5 mg GT TID 04/25/17 Lactobacillus Acidophilus 1 each GT HS 04/25/17 [Acidophilus] Lamotrigine 200 mg GT BID 04/25/17 Multivitamin [Poly-Vitamin] 1 each GT HS 04/25/17 Phenobarbital 48.6 mg GT BID 04/25/17 Ranitidine [Zantac -] 75 mg GT BID #0 tab 03/29/18 Diazepam Rectal Gel [Diastat 7.5 mg SC PRN PRN 05/23/18 Rectal Gel -] Protein Supplement [Promod] 946 ml GT DAILY 05/23/18 Budesonide [Pulmicort 0.25 mg 1 neb IH BID 02/05/19 Nebulizer -] Fluticasone Prop 0.05% Nasal 2 spray NS AM 02/05/19 [Flonase -] Magnesium Hydrox 2400MG/30Ml [Milk 20 ml GT BID 02/05/19 of Magnesia -] Albuterol 2.5/Ipratropium 0.5 1 neb IH QID PRN #30 neb 02/14/19 [Duoneb -] Clobazam [Onfi -] 5 mg GT DAILY #30 tablet MDD 5mg 02/14/19 /24h Bacitracin - [Bacitracin Topical 1 applic TP BID 06/01/19 Ointment -] Sodium Chloride/Aloe Vera [[place] 22 ml NS BID 06/01/19 Saline Nasal Gel [place]] predniSONE [Deltasone -] 10 mg PEG DAILY #2 tablet 06/09/19 predniSONE [Deltasone -] 20 mg PEG DAILY #6 tablet 06/09/19 ASSESSMENT AND PLAN: 24 year old male [place] resident with history of Cerebral Palsy, Developmental Delay, cognitive impairment, functional quadriplegia, seizure disorder, Hx of herpes encephalitis, GERD, Asthma/reactive airway disease, and Hx of aspiration pneumonia, recently discharged from [facility] 06/09 after being treated (with Tamiflu, Zosyn, Steroid) for resp failure sec to Influenza and Pseudomonal Pneumonia requiring Intubation/Ventilation, now re-presents from [place]. s/p Duarte/Sergio/May in ED. 1. Acute Hypoxic Respiratory failure and Sepsis secondary to recurrent/ persistent Pneumonia ?aspiration CXR - L sided consolidation Hx of Pseudomonas +ve sputum Cx Recently completed course of Tamiflu for Influenza A Intubated 06/11 Blood/Sputum Cx, Urine Legionella requested. CT Chest pending Resume on Zosyn ID consult. Eval by Pulmonary. 2. Seizure disorder - continue anti-seizure regimen (Clonazepam, Lamotrigene, Phenobarbital) 3. Hx of herpes Encephalitis - maintained on Acyclovir 4. Recent elevation in transaminases ? sespsi related/Abx related US Abdo - no acute pathology. Improving. will monitor. DVT PX -Heparin SQ GI Px - Famotidine
[2019-06-11] MEDS: PIPERACILLIN/TAZOB 3.375 GM 3.375 GM in DEXTROSE 5%-WATER - 50 ML IVPB SCH (17:30)
[2019-06-11] MEDS ORDERED: PIPERACILLIN/TAZOBACTAM 3.375 GM VIAL IVPB ONE (17:41)
[2019-06-11] MEDS ORDERED: DEXTROSE 5%-WATER - 50 ML IVPB ONE (17:41)
[2019-06-11] MEDS: SODIUM CHLORIDE 1,000 ML IV SCH (17:54)
[2019-06-11] MEDS: SODIUM CHLORIDE NASAL SPRAY 44 ML BOTTLE NS SCH (21:21)
[2019-06-11] MEDS: BACITRACIN 15 GM TUBE TOPICAL OINTMENT TP SCH (21:21)
[2019-06-11] MEDS: MUPIROCIN 2% TOPICAL OINTMENT FOR DECOLONIZATION NS SCH (21:22)
[2019-06-11] MEDS: CHLORHEXIDINE GLUCONATE 4% CLEANSER FOR DECOLONIZATION TP SCH (21:23)
[2019-06-11 22:21] LABS: ARTERIAL BLD GAS O2 SATURATION 99.2 % (95-98); ARTERIAL BLOOD GAS BASE EXCESS 0.3 meq/l (-2-2); ARTERIAL BLOOD GAS PCO2 40.1 mmHg (35-45); ARTERIAL BLOOD GAS PO2 216 mmHg (80-100)
[2019-06-11 22:22] LABS: ALLENS TEST POSITIVE
[2019-06-11] MEDS: LACTOBACILLUS ACIDOPHILUS 1 TABLET GT SCH (23:58)
[2019-06-12] MEDS: clonazePAM 0.5 MG TABLET GT SCH ×4 (00:01→22:31)
[2019-06-12] MEDS: lamoTRIgine 100 MG TABLET PO SCH ×3 (00:02→22:31)
[2019-06-12] MEDS: BACLOFEN 10 MG TABLET (FP) GT SCH ×3 (00:02→22:32)
[2019-06-12] MEDS: MAGNESIUM HYDROX 2400MG/30ML ORAL SUSPENSION 30 ML CUP GT SCH ×3 (00:03→22:32)
[2019-06-12] MEDS: cloBAZam 10 MG TABLET GT SCH ×3 (00:06→22:33)
[2019-06-12] MEDS: PHENobarbital 30 MG TABLET GT SCH ×3 (00:07→22:34)
[2019-06-12] MEDS: FAMOTIDINE 40 MG/5 ML ORAL SUSPENSION NGT SCH ×3 (00:07→22:33)
[2019-06-12] MEDS: ACYCLOVIR 200 MG/5 ML LIQUID GT SCH ×3 (00:09→22:34)
[2019-06-12] MEDS ORDERED: PIPERACILLIN/TAZOBACTAM 3.375 GM VIAL IVPB ONE ×2 (01:50→11:04)
[2019-06-12] MEDS ORDERED: DEXTROSE 5%-WATER - 50 ML IVPB ONE ×2 (01:51→11:04)
[2019-06-12] MEDS: PIPERACILLIN/TAZOB 3.375 GM 3.375 GM in DEXTROSE 5%-WATER - 50 ML IVPB SCH ×2 (02:07→11:06)
[2019-06-12] MEDS: HEPARIN NA (PORCINE) 5,000 UNITS/ML 1ML VIAL SQ SCH ×3 (05:58→22:29)
[2019-06-12 06:40] LABS: ARTERIAL BLD GAS O2 SATURATION 98.9 % (95-98); ARTERIAL BLOOD GAS PCO2 40.5 mmHg (35-45); ARTERIAL BLOOD GAS PO2 167 mmHg (80-100); ARTERIAL BLOOD GAS pH 7.37 (7.35-7.45)
[2019-06-12 06:42] LABS: ALLENS TEST POSITIVE
[2019-06-12] MEDS: ALBUTEROL SO4 0.083% IH SOL 2.5 MG/3 ML VIAL.NEB. NEB SCH ×2 (06:46→20:53)
[2019-06-12] MEDS: FLUTICASONE PROP 0.05% 16 GM NASAL SPRAY NS SCH (06:47)
[2019-06-12] MEDS: ALBUTEROL SO4 2.5/IPRATROPIUM 0.5 INH SOL 3 ML VIAL.NEB. NEB SCH ×4 (07:10→20:54)
[2019-06-12 07:22] LABS: BASO % 0.2 % (0-2.0); HEMATOCRIT 36.5 % (35.4-49); HEMOGLOBIN 12.5 GM/dL (11.7-16.9); LYMPH % 12.5 % (8-40); MCHC 34.2 g/dl (32.0-35.9); MEAN CELL VOLUME 99.6 fl (80-96); MEAN PLT VOLUME 9.4 fl (7.5-11.1); MONO % 4.1 % (3.8-10.2); NEUT % 83.2 % (42.8-82.8); PLATELET COUNT 248 K/MM3 (134-434); RBC 3.66 M/mm3 (4.00-5.60); RDW 13.3 % (11.9-15.9); WHITE BLOOD COUNT 11.8 K/mm3 (4.0-10.0)
[2019-06-12] MEDS ORDERED: MIDAZOLAM IN 0.9 % SOD.CHLORID 1 MG/1 ML PLAST..BAG ONE (08:28)
[2019-06-12 08:29] LABS: BILIRUBIN,TOTAL 0.6 mg/dL (0.2-1); BLOOD UREA NITROGEN 9.6 mg/dL (7-18); CALCIUM 8.3 mg/dL (8.5-10.1); CREATININE 0.7 mg/dL (0.55-1.3); MAGNESIUM 2.1 mg/dL (1.8-2.4); PHOSPHOROUS 3.4 mg/dL (2.5-4.9); POTASSIUM 3.2 mmol/L (3.5-5.1); TOT PROT 6.6 g/dl (6.4-8.2)
[2019-06-12] MEDS ORDERED: POTASSIUM CHLORIDE ORAL LIQUID 20 MEQ/15 ML PO ONE (08:58)
[2019-06-12] MEDS: MIDAZOLAM IN 0.9 % SOD.CHLORID 100 MG/100 ML PLAST..BAG IVPB SCH (09:25)
[2019-06-12] MEDS ORDERED: PROTEIN SUPPLEMENT GT SCH (10:00)
--- NOTE | 2019-06-12 10:30 | PN ---
Teaching Attending Note Name of Resident: Elizabeth Collado ATTENDING PHYSICIAN STATEMENT I saw and evaluated the patient. I reviewed the resident's note and discussed the case with the resident. I agree with the resident's findings and plan as documented. SUBJECTIVE: Pt seen and examined in the ICU. Remains intubated, sedated. Bloody secretions in ETT. OBJECTIVE: Vital Signs Period Temp Pulse Resp BP Sys/Linares Pulse Ox Last 24 Hr 98.8 F-100.4 F 49-112 14-38 88-153/48-97 92-100 Intake & Output 06/09/19 06/10/19 06/11/19 06/12/19 23:59 23:59 23:59 23:59 Intake Total 635 615 Balance 635 615 Weight 40.3 kg 41.3 kg Gen: intubated, sedated Heart: RRR Lung: scattered rhonchi Abd: soft, nontender Ext: no edema CBC, BMP 06/12/19 05:41 06/12/19 05:41 Active Medications Acyclovir (Zovirax Oral Suspension -) 400 mg GT BID [facility] Last Admin: 06/12/19 00:09 Dose: 400 mg Albuterol Sulfate (Ventolin 0.083% Nebulizer Soln -) 1 amp NEB RQ4H [facility] Last Admin: 06/12/19 06:46 Dose: 1 amp Albuterol/Ipratropium (Duoneb -) 1 amp NEB RQID [facility] Last Admin: 06/12/19 07:10 Dose: 1 amp Bacitracin (Bacitracin -) 1 applic TP BID [facility] Last Admin: 06/11/19 21:21 Dose: 1 applic Baclofen (Lioresal -) 10 mg GT BID [facility] Last Admin: 06/12/19 00:02 Dose: 10 mg Chlorhexidine Gluconate (Hibiclens For Decolonization -) 1 applic TP HS [facility] Last Admin: 06/11/19 21:23 Dose: 1 applic Clobazam (Onfi -) 10 mg GT HS [facility] Last Admin: 06/12/19 00:06 Dose: 10 mg Clobazam (Onfi -) 5 mg GT DAILY [facility] Clonazepam (Klonopin -) 1.5 mg GT TID [facility] Last Admin: 06/12/19 05:58 Dose: 1.5 mg Diazepam (Diastat Rectal Gel -) 7.5 mg RC PRN PRN PRN Reason: Seizures Famotidine (Pepcid) 10 mg NGT BID [facility] Last Admin: 06/12/19 00:07 Dose: 10 mg Fluticasone Propionate (Flonase -) 2 spray NS AM [facility] Last Admin: 06/12/19 06:47 Dose: 2 sprays Heparin Sodium (Porcine) (Heparin -) 5,000 unit SQ TID [facility] Last Admin: 06/12/19 05:58 Dose: 5,000 unit Piperacillin Sod/Tazobactam (Sod 3.375 gm/ Dextrose) 50 mls @ 100 mls/hr IVPB Q8H-IV [facility]; Protocol Piperacillin Sod/Tazobactam (Sod 3.375 gm/ Dextrose) 50 mls @ 100 mls/hr IVPB Q8H-IV [facility] Stop: 06/12/19 14:29 Last Admin: 06/12/19 02:07 Dose: 100 mls/hr Midazolam HCl (Midazolam 100mg/100ml-0.9%Nacl) 100 mg in 100 mls @ 2 mls/hr IVPB TITR [facility]; Protocol Stop: 06/12/19 14:59 Last Infusion: 06/11/19 15:27 Dose: 4 mg/hr, 4 mls/hr Propofol (Diprivan -) 1,000,000 mcg in 100 mls @ 1.197 mls/hr IVPB TITR [facility]; Protocol Last Titration: 06/12/19 00:30 Dose: 7 mcg/kg/min, 1.676 mls/hr Sodium Chloride (Normal Saline -) 1,000 mls @ 75 mls/hr IV ASDIR [facility] Last Admin: 06/11/19 17:54 Dose: 75 mls/hr Potassium Chloride (Potassium Chloride 10 Meq Premix Ivpb -) 10 meq in 100 mls @ 100 mls/hr IVPB Q60M [facility] Stop: 06/12/19 13:14 Lactobacillus Acidophilus (Bacid -) 1 tab GT HS [facility] Last Admin: 06/11/19 23:58 Dose: 1 tab Lamotrigine (Lamictal -) 200 mg PO BID [facility] Last Admin: 06/12/19 00:02 Dose: 200 mg Magnesium Hydroxide (Milk Of Magnesia -) 20 ml GT BID [facility] Last Admin: 06/12/19 00:03 Dose: 20 ml Multivitamins/Minerals (Certavite-Antioxidant Liquid) 15 ml GT HS [facility] Last Admin: 06/12/19 00:00 Dose: 15 ml Mupirocin (Bactroban Ointment (For Decolonization) -) 1 applic NS BID [facility] Stop: 06/16/19 21:59 Last Admin: 06/11/19 21:22 Dose: 1 applic Non-Formulary Medication (Protein Supplement [Promod]) 946 ml GT DAILY [facility] Phenobarbital (Phenobarbital -) 45 mg GT BID [facility] Last Admin: 06/12/19 00:07 Dose: 45 mg Sodium Chloride ([place] Nasal [place] -) 2 spray NS BID [facility] Last Admin: 06/11/19 21:21 Dose: 2 spray ASSESSMENT AND PLAN: Acute Hypoxic Respiratory Failure Pneumonia likely Aspiration Cerebral Palsy Mental Retardation Seizure Disorder GERD - antibiotics to cover aspiration - f/u cultures - inhaled bronchodilators - taper FiO2 to keep SpO2 >90% - IVF challenge - monitor urine output, creatinine - enteral feeds - DVT/GI prophylaxis - ICU monitoring critical care time spent in reviewing chart, evaluating patient and formulating plan 35 min
--- NOTE | 2019-06-12 10:49 | PN ---
Physical Exam: SUBJECTIVE: Patient seen and examined this AM. No acute events overnight. OBJECTIVE: Vital Signs Period Temp Pulse Resp BP Sys/Linares Pulse Ox Last 24 Hr 98.8 F-100.4 F 49-112 14-38 88-153/48-97 92-100 GENERAL: Intubated, Sedated HEAD: NCAT ENT: Moist mucous membranes NECK: Supple LUNGS: Mechanical vent sounds HEART: Regular rate and rhythm, S1, S2 without murmur ABDOMEN: Soft, nontender, nondistended, + bowel sounds, no guarding NEUROLOGICAL: Sedated, Extremities contracted SKIN: Warm, dry Laboratory Last Values WBC 11.8 K/mm3 (4.0-10.0) H 06/12/19 05:41 RBC 3.66 M/mm3 (4.00-5.60) L 06/12/19 05:41 Hgb 12.5 GM/dL (11.7-16.9) 06/12/19 05:41 Hct 36.5 % (35.4-49) 06/12/19 05:41 MCV 99.6 fl (80-96) H 06/12/19 05:41 MCH 34.0 pg (25.7-33.7) H 06/12/19 05:41 MCHC 34.2 g/dl (32.0-35.9) 06/12/19 05:41 RDW 13.3 % (11.9-15.9) 06/12/19 05:41 Plt Count 248 K/MM3 (134-434) 06/12/19 05:41 MPV 9.4 fl (7.5-11.1) 06/12/19 05:41 Absolute Neuts (auto) 9.8 K/mm3 (1.5-8.0) H 06/12/19 05:41 Neutrophils % 83.2 % (42.8-82.8) H 06/12/19 05:41 Lymphocytes % 12.5 % (8-40) D 06/12/19 05:41 Monocytes % 4.1 % (3.8-10.2) 06/12/19 05:41 Eosinophils % 0.0 % (0-4.5) D 06/12/19 05:41 Basophils % 0.2 % (0-2.0) 06/12/19 05:41 Nucleated RBC % 0 % (0-0) 06/12/19 05:41 Anticoagulation Therapy No Result Required. 06/12/19 06:30 Puncture Site Left radial 06/12/19 06:30 ABG pH 7.37 (7.35-7.45) 06/12/19 06:30 ABG pCO2 at Pt Temp 40.5 mmHg (35-45) 06/12/19 06:30 ABG pO2 at Pt Temp 167 mmHg (80-100) H 06/12/19 06:30 ABG HCO3 22.6 mmol/L (22-27) 06/12/19 06:30 ABG O2 Sat (Measured) 98.9 % (95-98) H 06/12/19 06:30 ABG O2 Content 19.4 % vol 06/12/19 06:30 ABG Base Excess -2.0 meq/l (-2-2) 06/12/19 06:30 Kaushal Test Positive 06/12/19 06:30 Carboxyhemoglobin 0.7 % (0-2) 06/11/19 11:31 Methemoglobin < 1.0 % (0-2) 06/11/19 11:31 O2 Delivery Device No Result Required. 06/12/19 06:30 Oxygen Flow Rate 50% 06/12/19 06:30 Vent Mode A/c 06/12/19 06:30 Vent Rate No Result Required. 06/12/19 06:30 Mechanical Rate No Result Required. 06/12/19 06:30 PEEP 5.0 cmH2O 06/12/19 06:30 Pressure Support Vent 350 06/12/19 06:30 Sodium 141 mmol/L (136-145) 06/12/19 05:41 Potassium 3.2 mmol/L (3.5-5.1) L 06/12/19 05:41 Chloride 109 mmol/L (98-107) H 06/12/19 05:41 Carbon Dioxide 24 mmol/L (21-32) 06/12/19 05:41 Anion Gap 8 MMOL/L (8-16) 06/12/19 05:41 BUN 9.6 mg/dL (7-18) 06/12/19 05:41 Creatinine 0.7 mg/dL (0.55-1.3) 06/12/19 05:41 Est GFR (CKD-EPI)AfAm 154.17 06/12/19 05:41 Est GFR (CKD-EPI)NonAf 133.02 06/12/19 05:41 Random Glucose 86 mg/dL (74-106) 06/12/19 05:41 Lactic Acid 1.6 mmol/L (0.4-2.0) 06/11/19 10:30 Calcium 8.3 mg/dL (8.5-10.1) L 06/12/19 05:41 Phosphorus 3.4 mg/dL (2.5-4.9) 06/12/19 05:41 Magnesium 2.1 mg/dL (1.8-2.4) 06/12/19 05:41 Total Bilirubin 0.6 mg/dL (0.2-1) 06/12/19 05:41 AST 18 U/L (15-37) 06/12/19 05:41 ALT 62 U/L (13-61) H 06/12/19 05:41 Alkaline Phosphatase 144 U/L (45-117) H 06/12/19 05:41 Troponin I < 0.02 ng/ml (0.00-0.05) 06/11/19 10:30 Total Protein 6.6 g/dl (6.4-8.2) 06/12/19 05:41 Albumin 3.0 g/dl (3.4-5.0) L 06/12/19 05:41 TSH 1.44 uIU/ml (0.358-3.74) D 06/12/19 05:41 Urine Color Yellow 06/11/19 10:50 Urine Appearance Clear 06/11/19 10:50 Urine pH 8.5 (5.0-8.0) H 06/11/19 10:50 Ur Specific [place] 1.014 (1.010-1.035) 06/11/19 10:50 Urine Protein Negative (NEGATIVE) 06/11/19 10:50 Urine Glucose (UA) Negative (NEGATIVE) 06/11/19 10:50 Urine Ketones Negative (NEGATIVE) 06/11/19 10:50 Urine Blood 2+ (NEGATIVE) H 06/11/19 10:50 Urine Nitrite Negative (NEGATIVE) 06/11/19 10:50 Urine Bilirubin Negative (NEGATIVE) 06/11/19 10:50 Urine Urobilinogen 0.2 mg/dL (0.2-1.0) 06/11/19 10:50 Ur Leukocyte Esterase Negative (NEGATIVE) 06/11/19 10:50 Urine WBC (Auto) 2 /hpf (0-5) 06/11/19 10:50 Urine RBC (Auto) 345 /hpf (0-4) 06/11/19 10:50 Urine Casts (Auto) 0 /lpf (0-8) 06/11/19 10:50 U Epithel Cells (Auto) 0.9 /HPF (0-5/HPF) 06/11/19 10:50 Urine Bacteria (Auto) 6.5 /hpf (NEGATIVE) 06/11/19 10:50 Microbiology 06/11/19 10:50 Urine - Urine - Catheterized Urine Culture - Final NO GROWTH OBTAINED Active Medications Acyclovir (Zovirax Oral Suspension -) 400 mg GT BID [facility] Last Admin: 06/12/19 00:09 Dose: 400 mg Albuterol Sulfate (Ventolin 0.083% Nebulizer Soln -) 1 amp NEB RQ4H [facility] Last Admin: 06/12/19 06:46 Dose: 1 amp Albuterol/Ipratropium (Duoneb -) 1 amp NEB RQID [facility] Last Admin: 06/12/19 07:10 Dose: 1 amp Bacitracin (Bacitracin -) 1 applic TP BID [facility] Last Admin: 06/11/19 21:21 Dose: 1 applic Baclofen (Lioresal -) 10 mg GT BID [facility] Last Admin: 06/12/19 00:02 Dose: 10 mg Chlorhexidine Gluconate (Hibiclens For Decolonization -) 1 applic TP HS [facility] Last Admin: 06/11/19 21:23 Dose: 1 applic Clobazam (Onfi -) 10 mg GT HS [facility] Last Admin: 06/12/19 00:06 Dose: 10 mg Clobazam (Onfi -) 5 mg GT DAILY [facility] Clonazepam (Klonopin -) 1.5 mg GT TID [facility] Last Admin: 06/12/19 05:58 Dose: 1.5 mg Diazepam (Diastat Rectal Gel -) 7.5 mg RC PRN PRN PRN Reason: Seizures Famotidine (Pepcid) 10 mg NGT BID [facility] Last Admin: 06/12/19 00:07 Dose: 10 mg Fluticasone Propionate (Flonase -) 2 spray NS AM [facility] Last Admin: 06/12/19 06:47 Dose: 2 sprays Heparin Sodium (Porcine) (Heparin -) 5,000 unit SQ TID [facility] Last Admin: 06/12/19 05:58 Dose: 5,000 unit Piperacillin Sod/Tazobactam (Sod 3.375 gm/ Dextrose) 50 mls @ 100 mls/hr IVPB Q8H-IV [facility]; Protocol Piperacillin Sod/Tazobactam (Sod 3.375 gm/ Dextrose) 50 mls @ 100 mls/hr IVPB Q8H-IV [facility] Stop: 06/12/19 14:29 Last Admin: 06/12/19 02:07 Dose: 100 mls/hr Midazolam HCl (Midazolam 100mg/100ml-0.9%Nacl) 100 mg in 100 mls @ 2 mls/hr IVPB TITR [facility]; Protocol Stop: 06/12/19 14:59 Last Infusion: 06/11/19 15:27 Dose: 4 mg/hr, 4 mls/hr Propofol (Diprivan -) 1,000,000 mcg in 100 mls @ 1.197 mls/hr IVPB TITR [facility]; Protocol Last Titration: 06/12/19 00:30 Dose: 7 mcg/kg/min, 1.676 mls/hr Sodium Chloride (Normal Saline -) 1,000 mls @ 75 mls/hr IV ASDIR [facility] Last Admin: 06/11/19 17:54 Dose: 75 mls/hr Potassium Chloride (Potassium Chloride 10 Meq Premix Ivpb -) 10 meq in 100 mls @ 100 mls/hr IVPB Q60M [facility] Stop: 06/12/19 13:14 Lactobacillus Acidophilus (Bacid -) 1 tab GT [facility] Last Admin: 06/11/19 23:58 Dose: 1 tab Lamotrigine (Lamictal -) 200 mg PO BID [facility] Last Admin: 06/12/19 00:02 Dose: 200 mg Magnesium Hydroxide (Milk Of Magnesia -) 20 ml GT BID [facility] Last Admin: 06/12/19 00:03 Dose: 20 ml Multivitamins/Minerals (Certavite-Antioxidant Liquid) 15 ml GT [facility] Last Admin: 06/12/19 00:00 Dose: 15 ml Mupirocin (Bactroban Ointment (For Decolonization) -) 1 applic NS BID [facility] Stop: 06/16/19 21:59 Last Admin: 06/11/19 21:22 Dose: 1 applic Non-Formulary Medication (Protein Supplement [Promod]) 946 ml GT DAILY [facility] Phenobarbital (Phenobarbital -) 45 mg GT BID [facility] Last Admin: 06/12/19 00:07 Dose: 45 mg Sodium Chloride ([place] Nasal [place] -) 2 spray NS BID [facility] Last Admin: 06/11/19 21:21 Dose: 2 spray ASSESSMENT/PLAN: 24 y/o M PMHx CP, Epilepsy, herpes encephalitis, GERD, and aspiration pneumonia, who was recently discharged from [facility] (Treated for sepsis secondary to PNA and flu requiring intubation), admitted to ICU s/p intubation for aspiration PNA. #Neuro Sedated on Midazolam, Propofol Hx of CP and epilepsy -Continue home medications: diazepam, clobazam, clonazepam, lamictal, phenobarbital, -Daily sedation vacations #Cardio Hx of bradycardia during previous admission -EKG did not show any acute changes. Qtc of 432. -Continous cardiac monitoring #Pulm Acute hypoxic respiratory failure -Intubated (350/14/5/50%) -Bronchodilation via Duonebs/Ventolin -Daily Wean trials #GI Elevate ALT, Alk Phos S/P PEG tube placement Hx of GERD -Liver enzymes trending down, will consider further imaging if rise again -Restart tube feeds as per dietary recommendations -Continue home dose Famotidine #ID Aspiration PNA Hx of herpes encephalitis -Afebrile, Leukocytosis improving -Continue home dose alcyclovir -Continue Zoysn -Follow cultures -ID Consulted, appreciate rec's #Renal Decreased Urine output -Fluid challenge, Check Bladder scan #FEN -NS @ 75 -Replete Lytes PRN -Tube feeds as per Dietary recs. #LTD -Intubated 06/11/2019. Dispo: ICU Monitoring Visit type - Emergency Visit Emergency Visit: Yes ED Registration Date: 06/11/19 Care time: The patient presented to the Emergency Department on the above date and was hospitalized for further evaluation of their emergent condition. - New Patient This patient is new to me today: Yes Date on this admission: 06/12/19 - Critical Care Critical Care patient: Yes Total Critical Care Time (in minutes): 36 Critical Care Statement: The care of this patient involved high complexity decision making to prevent further life threatening deterioration of the patient's condition and/or to evaluate & treat vital organ system(s) failure or risk of failure. ATTENDING PHYSICIAN STATEMENT I saw and evaluated the patient. I reviewed the resident's note and discussed the case with the resident. I agree with the resident's findings and plan as documented. SUBJECTIVE: OBJECTIVE: ASSESSMENT AND PLAN:
[2019-06-12] MEDS: BACITRACIN 15 GM TUBE TOPICAL OINTMENT TP SCH ×2 (10:57→22:23)
[2019-06-12] MEDS: SODIUM CHLORIDE NASAL SPRAY 44 ML BOTTLE NS SCH ×2 (11:01→22:32)
[2019-06-12] MEDS: MUPIROCIN 2% TOPICAL OINTMENT FOR DECOLONIZATION NS SCH ×2 (11:02→22:26)
[2019-06-12] MEDS ORDERED: LACTATED RINGERS SOLUTION 1,000 ML/1,000 ML INFUS.BAG IV STA (11:07)
[2019-06-12] MEDS: KCL 10 MEQ IVPB 10 MEQ/100 ML INFUS.BAG IVPB SCH ×3 (11:33→13:21)
[2019-06-12 12:11] LABS: INR 1.13 (0.83-1.09); PROTHROMBIN TIME (PATIENT) 13.3 SEC (9.7-13.0)
[2019-06-12 12:13] LABS: ACTIVATED PTT 36.2 SECONDS (25.2-36.5)
[2019-06-12] MEDS ORDERED: POTASSIUM CHLORIDE TABS 20 MEQ TABLET.ER (FP) PO ONE (17:40)
--- NOTE | 2019-06-12 17:44 | PN ---
Progress Note (short form) - Note Progress Note: SUBJECTIVE: Intubated/mechanically ventilated, non-verbal at baseline. OBJECTIVE: Febrile. Hemodynamically Stable. Last Vital Signs Temp Pulse Resp BP Pulse Ox 100.2 F H 62 14 102/54 L 96 06/12/19 14:00 06/12/19 14:00 06/12/19 15:00 06/12/19 14:00 06/12/19 10:00 Heart - S1, S2, RRR Lungs - good air entry bilaterally Abdomen - Soft, non-tender. PEG site clean. Bowel Sounds normal. Extremities - wasting, contractures LEs Laboratory Results - last 24 hr 06/11/19 06/11/19 06/12/19 11:10 21:55 05:41 WBC 11.8 H RBC 3.66 L Hgb 12.5 Hct 36.5 MCV 99.6 H MCH 34.0 H MCHC 34.2 RDW 13.3 Plt Count 248 MPV 9.4 Absolute Neuts (auto) 9.8 H Neutrophils % 83.2 H Lymphocytes % 12.5 D Monocytes % 4.1 Eosinophils % 0.0 D Basophils % 0.2 Nucleated RBC % 0 PT with INR 13.30 H INR 1.13 H PTT (Actin FS) 36.2 Anticoagulation Therapy No Result Required. Puncture Site Left radial ABG pH 7.40 ABG pCO2 at Pt Temp 40.1 ABG pO2 at Pt Temp 216 H ABG HCO3 24.4 ABG O2 Sat (Measured) 99.2 H ABG O2 Content 19.4 ABG Base Excess 0.3 Kaushal Test Positive O2 Delivery Device No Result Required. Oxygen Flow Rate 60% Vent Mode A/c Vent Rate 14 Mechanical Rate No Result Required. PEEP 5.0 Pressure Support Vent 350 Sodium Potassium Chloride Carbon Dioxide Anion Gap BUN Creatinine Est GFR (CKD-EPI)AfAm Est GFR (CKD-EPI)NonAf POC Glucometer Random Glucose Calcium Phosphorus Magnesium Total Bilirubin AST ALT Alkaline Phosphatase Total Protein Albumin TSH 06/12/19 06/12/19 06/12/19 05:41 06:30 17:12 WBC RBC Hgb Hct MCV MCH MCHC RDW Plt Count MPV Absolute Neuts (auto) Neutrophils % Lymphocytes % Monocytes % Eosinophils % Basophils % Nucleated RBC % PT with INR INR PTT (Actin FS) Anticoagulation Therapy No Result Required. Puncture Site Left radial ABG pH 7.37 ABG pCO2 at Pt Temp 40.5 ABG pO2 at Pt Temp 167 H ABG HCO3 22.6 ABG O2 Sat (Measured) 98.9 H ABG O2 Content 19.4 ABG Base Excess -2.0 Kaushal Test Positive O2 Delivery Device No Result Required. Oxygen Flow Rate 50% Vent Mode A/c Vent Rate No Result Required. Mechanical Rate No Result Required. PEEP 5.0 Pressure Support Vent 350 Sodium 141 Potassium 3.2 L Chloride 109 H Carbon Dioxide 24 Anion Gap 8 BUN 9.6 Creatinine 0.7 Est GFR (CKD-EPI)AfAm 154.17 Est GFR (CKD-EPI)NonAf 133.02 POC Glucometer 79 Random Glucose 86 Calcium 8.3 L Phosphorus 3.4 Magnesium 2.1 Total Bilirubin 0.6 AST 18 ALT 62 H Alkaline Phosphatase 144 H Total Protein 6.6 Albumin 3.0 L TSH 1.44 D Current Medications Generic Name Dose Route Start Last Admin Trade Name Freq PRN Reason Stop Dose Admin Acyclovir 400 mg 06/11/19 22:00 06/12/19 10:58 Zovirax Oral Suspension - GT 400 mg BID [facility] Administration Albuterol Sulfate 1 amp 06/12/19 05:26 06/12/19 06:46 Ventolin 0.083% Nebulizer Soln - NEB 1 amp RQ4H [facility] Administration Albuterol/Ipratropium 1 amp 06/12/19 08:00 06/12/19 11:30 Duoneb - NEB 1 amp RQID [facility] Administration Bacitracin 1 applic 06/11/19 22:00 06/12/19 10:57 Bacitracin - TP 1 applic BID [facility] Administration Baclofen 10 mg 06/11/19 22:00 06/12/19 13:21 Lioresal - GT 10 mg BID [facility] Administration Chlorhexidine Gluconate 1 applic 06/11/19 22:00 06/11/19 21:23 Hibiclens For Decolonization - TP 1 applic HS [facility] Administration Clobazam 10 mg 06/11/19 22:00 06/12/19 00:06 Onfi - GT 10 mg HS [facility] Administration Clobazam 5 mg 06/12/19 10:00 06/12/19 10:53 Onfi - GT 5 mg DAILY [facility] Administration Clonazepam 1.5 mg 06/11/19 22:00 06/12/19 13:25 Klonopin - GT 1.5 mg TID [facility] Administration Diazepam 7.5 mg 06/11/19 15:45 Diastat Rectal Gel - RC PRN PRN Seizures Famotidine 10 mg 06/11/19 22:00 06/12/19 10:55 Pepcid NGT 10 mg BID [facility] Administration Fluticasone Propionate 2 spray 06/12/19 07:00 06/12/19 06:47 Flonase - NS 2 sprays AM [facility] Administration Heparin Sodium (Porcine) 5,000 unit 06/11/19 14:00 06/12/19 13:25 Heparin - SQ 5,000 unit TID [facility] Administration Piperacillin Sod/Tazobactam 50 mls @ 100 mls/hr 06/11/19 14:15 Sod 3.375 gm/ Dextrose IVPB Q8H-IV [facility] Protocol Propofol 1,000,000 mcg in 100 mls @ 1.197 mls/hr 06/11/19 16:45 06/12/19 00: 30 Diprivan - IVPB 7 mcg/kg/min TITR [facility] 1.676 mls/hr Titration Protocol 5 MCG/KG/MIN Sodium Chloride 1,000 mls @ 75 mls/hr 06/11/19 17:45 06/11/19 17:54 Normal Saline - IV 75 mls/hr ASDIR [facility] Administration Lactobacillus Acidophilus 1 tab 06/11/19 22:00 06/11/19 23:58 Bacid - GT 1 tab HS [facility] Administration Lamotrigine 200 mg 06/11/19 22:00 06/12/19 13:22 Lamictal - PO 200 mg BID [facility] Administration Magnesium Hydroxide 20 ml 06/11/19 22:00 06/12/19 10:54 Milk Of Magnesia - GT 20 ml BID [facility] Administration Multivitamins/Minerals 15 ml 06/11/19 22:00 06/12/19 00:00 Certavite-Antioxidant Liquid GT 15 ml HS [facility] Administration Mupirocin 1 applic 06/11/19 22:00 06/12/19 11:02 Bactroban Ointment (For Decolonization) - NS 06/16/19 21:59 1 applic BID [facility] Administration Non-Formulary Medication 946 ml 06/12/19 10:00 Protein Supplement [Promod] GT DAILY [facility] Phenobarbital 45 mg 06/11/19 22:00 06/12/19 10:53 Phenobarbital - GT 45 mg BID [facility] Administration Potassium Chloride 40 meq 06/12/19 17:40 K-Dur - PO 06/12/19 17:41 ONCE ONE Sodium Chloride 2 spray 06/11/19 22:00 06/12/19 11:01 [place] Nasal [place] - NS 2 spray BID [facility] Administration Home Medications Medication Instructions Recorded Acyclovir 400 mg GT BID 04/25/17 Baclofen 10 mg GT BID 04/25/17 Clobazam [Onfi -] 10 mg GT HS 04/25/17 Clonazepam 1.5 mg GT TID 04/25/17 Lactobacillus Acidophilus 1 each GT HS 04/25/17 [Acidophilus] Lamotrigine 200 mg GT BID 04/25/17 Multivitamin [Poly-Vitamin] 1 each GT HS 04/25/17 Phenobarbital 48.6 mg GT BID 04/25/17 Ranitidine [Zantac -] 75 mg GT BID #0 tab 03/29/18 Diazepam Rectal Gel [Diastat 7.5 mg [place] PRN PRN 05/23/18 Rectal Gel -] Protein Supplement [Promod] 946 ml GT DAILY 05/23/18 Budesonide [Pulmicort 0.25 mg 1 neb IH BID 02/05/19 Nebulizer -] Fluticasone Prop 0.05% Nasal 2 spray NS AM 02/05/19 [Flonase -] Magnesium Hydrox 2400MG/30Ml [Milk 20 ml GT BID 02/05/19 of Magnesia -] Albuterol 2.5/Ipratropium 0.5 1 neb IH QID PRN #30 neb 02/14/19 [Duoneb -] Clobazam [Onfi -] 5 mg GT DAILY #30 tablet MDD 5mg 02/14/19 /24h Bacitracin - [Bacitracin Topical 1 applic TP BID 06/01/19 Ointment -] Sodium Chloride/Aloe Vera [[place] 22 ml NS BID 06/01/19 Saline Nasal Gel [place]] predniSONE [Deltasone -] 10 mg PEG DAILY #2 tablet 06/09/19 predniSONE [Deltasone -] 20 mg PEG DAILY #6 tablet 06/09/19 ASSESSMENT AND PLAN: 24 year old male [place] resident with history of Cerebral Palsy, Developmental Delay, cognitive impairment, functional quadriplegia, seizure disorder, Hx of herpes encephalitis, GERD, Asthma/reactive airway disease, and Hx of aspiration pneumonia, recently discharged from [facility] 06/09 after being treated (with Tamiflu, Zosyn, Steroid) for resp failure sec to Influenza and Pseudomonal Pneumonia requiring Intubation/Ventilation, now re-presents from [place]. s/p Azithro/Genta/Vanco in ED. 1. Acute Hypoxic Respiratory failure and Sepsis secondary to recurrent/ persistent Aspiration Pneumonia CXR - L sided consolidation Hx of Pseudomonas +ve sputum Cx Recently completed course of Tamiflu for Influenza A Intubated 06/11 Blood Cx/Urine Cx neg. Urine Legionella pending. CT Chest - bilateral infiltrates Leukocytosis resolving. Continue Zosyn ID consulted. 2. Seizure disorder - continue anti-seizure regimen (Clonazepam, Lamotrigene, Phenobarbital) 3. Hx of herpes Encephalitis - maintained on Acyclovir 4. Recent elevation in transaminases ? sepsis related/Abx related US Abdo - no acute pathology. Improving. will monitor. DVT PX - Heparin SQ GI Px - Famotidine Visit type - Emergency Visit Emergency Visit: Yes ED Registration Date: 06/11/19 Care time: The patient presented to the Emergency Department on the above date and was hospitalized for further evaluation of their emergent condition. - New Patient This patient is new to me today: No - Critical Care Critical Care patient: Yes Total Critical Care Time (in minutes): 40 Critical Care Statement: The care of this patient involved high complexity decision making to prevent further life threatening deterioration of the patient 's condition and/or to evaluate & treat vital organ system(s) failure or risk of failure. - Discharge Referral Referred to [facility] No
--- NOTE | 2019-06-12 17:49 | PN ---
Progress Note (short form) - Note Progress Note: ID CONSULT DICTATED RESP FAILURE RECURRENT PNEUMONIA RECENT INFLUENZA AWAIT C/S CONTINUE ZOSYN VENTILATORY SUPPORT
[2019-06-12] MEDS: PROPOFOL 1,000,000 MCG/100 ML VIAL IVPB SCH (22:21)
[2019-06-12] MEDS: SODIUM CHLORIDE 1,000 ML IV SCH (22:22)
[2019-06-12] MEDS: LACTOBACILLUS ACIDOPHILUS 1 TABLET GT SCH (22:23)
[2019-06-12] MEDS: MULTIVIT-MINERALS ORAL LIQUID GT SCH ×2 (22:27)
[2019-06-12] MEDS: CHLORHEXIDINE GLUCONATE 4% CLEANSER FOR DECOLONIZATION TP SCH (22:31)
[2019-06-13] MEDS: ALBUTEROL SO4 0.083% IH SOL 2.5 MG/3 ML VIAL.NEB. NEB SCH ×4 (00:43→11:53)
[2019-06-13] MEDS ORDERED: MIDAZOLAM IN 0.9 % SOD.CHLORID 1 MG/1 ML PLAST..BAG ONE (01:42)
[2019-06-13] MEDS: HEPARIN NA (PORCINE) 5,000 UNITS/ML 1ML VIAL SQ SCH ×3 (05:04→21:08)
[2019-06-13] MEDS: clonazePAM 0.5 MG TABLET GT SCH ×3 (05:05→21:08)
[2019-06-13] MEDS: FLUTICASONE PROP 0.05% 16 GM NASAL SPRAY NS SCH (06:25)
[2019-06-13 06:37] LABS: BASO % 0.3 % (0-2.0); EOS % 0.4 % (0-4.5); HEMATOCRIT 33.1 % (35.4-49); HEMOGLOBIN 11.4 GM/dL (11.7-16.9); LYMPH % 40.5 % (8-40); MCH 33.9 pg (25.7-33.7); MCHC 34.2 g/dl (32.0-35.9); MEAN CELL VOLUME 99.1 fl (80-96); MEAN PLT VOLUME 9.4 fl (7.5-11.1); MONO % 10.4 % (3.8-10.2); NEUT % 48.4 % (42.8-82.8); PLATELET COUNT 236 K/MM3 (134-434); RBC 3.35 M/mm3 (4.00-5.60); RDW 13.7 % (11.9-15.9)
[2019-06-13 06:56] LABS: ALBUMIN 2.7 g/dl (3.4-5.0); BILIRUBIN,TOTAL 0.5 mg/dL (0.2-1); BLOOD UREA NITROGEN 3.6 mg/dL (7-18); CALCIUM 8.4 mg/dL (8.5-10.1); CREATININE 0.5 mg/dL (0.55-1.3); MAGNESIUM 1.8 mg/dL (1.8-2.4); PHOSPHOROUS 3.3 mg/dL (2.5-4.9); POTASSIUM 3.2 mmol/L (3.5-5.1); TOT PROT 6.3 g/dl (6.4-8.2)
--- NOTE | 2019-06-13 07:07 | PN ---
Physical Exam: SUBJECTIVE: Patient seen and examined NAEON. ETT tube at approximately 18cm at the lip, but CXR shows tube at the hayley. Moved to 17 cm, rechecking CXR. Holding off on wean trial due to secretions. One aerobic blood cx with gram positive cocci in clusters, sputum cx with Pseudomonas. OBJECTIVE: Vital Signs Period Temp Pulse Resp BP Sys/Linares Pulse Ox Last 24 Hr 100.2 F-100.3 F 51-110 14-32 94-103/46-64 94-99 GENERAL: The patient is awake, alert, in no acute distress. HEAD: Normal with no signs of trauma. EYES: PERRL, extraocular movements intact, sclera anicteric, conjunctiva clear. ENT: Ears normal, nares patent NECK: Trachea midline, full range of motion, supple LUNGS: Coarse lung sounds bilaterally HEART: Regular rate and rhythm, S1, S2 without murmur, rub or gallop ABDOMEN: Soft, nontender, nondistended, normoactive bowel sounds EXTREMITIES: 2+ pulses, warm, well-perfused, diffusely contracted NEURO: laughing and smiling, moving both arms, unable to assess cranial nerves SKIN: Warm, dry Laboratory Results - last 24 hr 06/11/19 06/12/19 06/12/19 11:10 05:41 05:41 WBC 11.8 H RBC 3.66 L Hgb 12.5 Hct 36.5 MCV 99.6 H MCH 34.0 H MCHC 34.2 RDW 13.3 Plt Count 248 MPV 9.4 Absolute Neuts (auto) 9.8 H Neutrophils % 83.2 H Lymphocytes % 12.5 D Monocytes % 4.1 Eosinophils % 0.0 D Basophils % 0.2 Nucleated RBC % 0 PT with INR 13.30 H INR 1.13 H PTT (Actin FS) 36.2 Anticoagulation Therapy O2 Delivery Device Oxygen Flow Rate Vent Mode Vent Rate Mechanical Rate Pressure Support Vent Sodium 141 Potassium 3.2 L Chloride 109 H Carbon Dioxide 24 Anion Gap 8 BUN 9.6 Creatinine 0.7 Est GFR (CKD-EPI)AfAm 154.17 Est GFR (CKD-EPI)NonAf 133.02 POC Glucometer Random Glucose 86 Calcium 8.3 L Phosphorus 3.4 Magnesium 2.1 Total Bilirubin 0.6 AST 18 ALT 62 H Alkaline Phosphatase 144 H Total Protein 6.6 Albumin 3.0 L TSH 1.44 D 06/12/19 06/13/19 06/13/19 17:12 06:00 06:01 WBC 9.0 RBC 3.35 L Hgb 11.4 L Hct 33.1 L MCV 99.1 H MCH 33.9 H MCHC 34.2 RDW 13.7 Plt Count 236 MPV 9.4 Absolute Neuts (auto) 4.4 Neutrophils % 48.4 D Lymphocytes % 40.5 H D Monocytes % 10.4 H D Eosinophils % 0.4 D Basophils % 0.3 Nucleated RBC % 0 PT with INR INR PTT (Actin FS) Anticoagulation Therapy O2 Delivery Device Oxygen Flow Rate Vent Mode Vent Rate Mechanical Rate Pressure Support Vent Sodium 141 Potassium 3.2 L Chloride 111 H Carbon Dioxide 22 Anion Gap 7 L BUN 3.6 L Creatinine 0.5 L Est GFR (CKD-EPI)AfAm 177.03 Est GFR (CKD-EPI)NonAf 152.75 POC Glucometer 79 Random Glucose 94 Calcium 8.4 L Phosphorus 3.3 Magnesium 1.8 Total Bilirubin 0.5 AST 16 ALT 52 Alkaline Phosphatase 138 H Total Protein 6.3 L Albumin 2.7 L TSH 06/13/19 06:13 WBC RBC Hgb Hct MCV MCH MCHC RDW Plt Count MPV Absolute Neuts (auto) Neutrophils % Lymphocytes % Monocytes % Eosinophils % Basophils % Nucleated RBC % PT with INR INR PTT (Actin FS) Anticoagulation Therapy No Result Required. O2 Delivery Device No Result Required. Oxygen Flow Rate No Result Required. Vent Mode No Result Required. Vent Rate No Result Required. Mechanical Rate No Result Required. Pressure Support Vent No Result Required. Sodium Potassium Chloride Carbon Dioxide Anion Gap BUN Creatinine Est GFR (CKD-EPI)AfAm Est GFR (CKD-EPI)NonAf POC Glucometer Random Glucose Calcium Phosphorus Magnesium Total Bilirubin AST ALT Alkaline Phosphatase Total Protein Albumin TSH Active Medications Generic Name Dose Route Start Last Admin Trade Name Freq PRN Reason Stop Dose Admin Acyclovir 400 mg 06/11/19 22:00 06/12/19 22:34 Zovirax Oral Suspension - GT 400 mg BID JORGE Administration Albuterol Sulfate 1 amp 06/12/19 05:26 06/13/19 04:07 Ventolin 0.083% Nebulizer Soln - NEB 1 amp RQ4H JORGE Administration Albuterol/Ipratropium 1 amp 06/12/19 08:00 06/12/19 20:54 Duoneb - NEB 1 amp RQID JORGE Administration Bacitracin 1 applic 06/11/19 22:00 06/12/19 22:23 Bacitracin - TP 1 applic BID JORGE Administration Baclofen 10 mg 06/11/19 22:00 06/12/19 22:32 Lioresal - GT 10 mg BID JORGE Administration Chlorhexidine Gluconate 1 applic 06/11/19 22:00 06/12/19 22:31 Hibiclens For Decolonization - TP 1 applic HS [facility]ORGE Administration Clobazam 10 mg 06/11/19 22:00 06/12/19 22:33 Onfi - GT 10 mg HS JORGE Administration Clobazam 5 mg 06/12/19 10:00 06/12/19 10:53 Onfi - GT 5 mg DAILY JORGE Administration Clonazepam 1.5 mg 06/11/19 22:00 06/13/19 05:05 Klonopin - GT 1.5 mg TID JORGE Administration Diazepam 7.5 mg 06/11/19 15:45 Diastat Rectal Gel - RC PRN PRN Seizures Famotidine 10 mg 06/11/19 22:00 06/12/19 22:33 Pepcid NGT 10 mg BID JORGE Administration Fluticasone Propionate 2 spray 06/12/19 07:00 06/13/19 06:25 Flonase - NS 2 sprays AM JORGE Administration Heparin Sodium (Porcine) 5,000 unit 06/11/19 14:00 06/13/19 05:04 Heparin - SQ 5,000 unit TID JORGE Administration Propofol 1,000,000 mcg in 100 mls @ 1.197 mls/hr 06/11/19 16:45 06/12/19 22:21 Diprivan - IVPB 10 mcg/kg/min TITR JORGE 2.395 mls/hr Administration Protocol 5 MCG/KG/MIN Sodium Chloride 1,000 mls @ 75 mls/hr 06/11/19 17:45 06/12/19 22:22 Normal Saline - IV 75 mls/hr ASDIR [facility]GE Administration Lactobacillus Acidophilus 1 tab 06/11/19 22:00 06/12/19 22:23 Bacid - GT 1 tab HS JORGE Administration Lamotrigine 200 mg 06/11/19 22:00 06/12/19 22:31 Lamictal - PO 200 mg BID J[facility]GE Administration Magnesium Hydroxide 20 ml 06/11/19 22:00 06/12/19 22:32 Milk Of Magnesia - GT 20 ml BID J[facility]GE Administration Multivitamins/Minerals 15 ml 06/11/19 22:00 06/12/19 22:27 Certavite-Antioxidant Liquid GT 15 ml HS JORGE Administration Mupirocin 1 applic 06/11/19 22:00 06/12/19 22:26 Bactroban Ointment (For Decolonization) - NS 06/16/19 21:59 1 applic BID JORGE Administration Non-Formulary Medication 946 ml 06/12/19 10:00 Protein Supplement [Promod] GT DAILY JORGE Phenobarbital 45 mg 06/11/19 22:00 06/12/19 22:34 Phenobarbital - GT 45 mg BID JORGE Administration Sodium Chloride 2 spray 06/11/19 22:00 06/12/19 22:32 Waldo [place] Nasal [place] - NS 2 spray BID JORGE Administration ASSESSMENT/PLAN: 24 yo M PMH cerebral palsy, epilepsy, herpes encephalitis, GERD, and aspiration pneumonia, recently discharged from [facility] with sepsis secondary to PNA and flu requiring intubation, admitted to ICU s/p intubation for PNA. Neuro: - hx cerebral palsy and epilepsy - sedated on midazolam 6, propofol 10 - continue home medications: diazepam, clobazam, clonazepam, lamotrigine, phenobarbital - daily sedation vacations - wean trial: too much secretions, wean tomorrow CV: - hx bradycardia during previous admission - EKG without acute changes. Qtc 432. - continous cardiac monitoring Respiratory: - CT chest: residual patchy opacities in the left and to a lesser extent right lung that may represent infiltrates. Moderately over-distended colon with air. - acute hypoxic respiratory failure - intubated - Vent settings: Tv 350, RR 14, PEEP 5, FiO2 50% - bronchodilation via Duonebs/Ventolin - CXR: rotated, ETT tube deep, needs retraction 1-2 cm. Persistent L base infiltrate. - ETT moved from 18cm at the lip to 17cm at the lip - f/u repeat CXR - daily wean trials GI: - hx GERD - continue home dose famotidine - s/p PEG tube placement - elevated ALT, alk phos - liver enzymes trending down - consider further imaging - tube feeds restarted per dietary recommendations ID: - aspiration PNA - hx herpes encephalitis - continue home dose acyclovir - afebrile - improving leukocytosis - on piptazo, started 06/11/2019 - aerobic blood culture with gram positive cocci in clusters - sputum cx with presumed Pseudomonas - ID Consulted, appreciate rec's Renal: - K 3.2 from 3.2 despite K riders - changed NS to NS with 20meQ potassium - giving 40 mEQ KCl through PEG - Lane inserted 06/12/2019 - 1850 ccs output yesterday FEN: - NS+20meQ KCL @ 75 ccs/hr - replete lytes PRN - tube feeds per dietary recs LTD: - intubated 06/11/2019 - Lane 06/12/2019 Dispo: - ICU Monitoring - wean trials Visit type - Emergency Visit Emergency Visit: No - New Patient This patient is new to me today: No - Critical Care Critical Care patient: Yes Total Critical Care Time (in minutes): 45 Critical Care Statement: The care of this patient involved high complexity decision making to prevent further life threatening deterioration of the patient's condition and/or to evaluate & treat vital organ system(s) failure or risk of failure. ATTENDING PHYSICIAN STATEMENT I saw and evaluated the patient. I reviewed the resident's note and discussed the case with the resident. I agree with the resident's findings and plan as documented. SUBJECTIVE: OBJECTIVE: ASSESSMENT AND PLAN:
[2019-06-13 07:16] LABS: ARTERIAL BLD GAS O2 SATURATION 99.1 % (95-98); ARTERIAL BLOOD GAS BASE EXCESS -0.9 meq/l (-2-2); ARTERIAL BLOOD GAS PCO2 35.4 mmHg (35-45); ARTERIAL BLOOD GAS PO2 179 mmHg (80-100); ARTERIAL BLOOD GAS pH 7.42 (7.35-7.45)
[2019-06-13 07:20] LABS: ALLENS TEST POSITIVE
[2019-06-13] MEDS: ALBUTEROL SO4 2.5/IPRATROPIUM 0.5 INH SOL 3 ML VIAL.NEB. NEB SCH ×4 (07:30→20:30)
[2019-06-13] MEDS ORDERED: KCL 10 MEQ IVPB 10 MEQ/100 ML INFUS.BAG IVPB SCH (08:45)
[2019-06-13] MEDS ORDERED: POTASSIUM CHLORIDE ORAL LIQUID 20 MEQ/15 ML PO ONE (09:00)
[2019-06-13] MEDS ORDERED: PT OWN MED DRAWER 7, Y5N ONE (09:28)
[2019-06-13] MEDS ORDERED: DEXTROSE 5%-WATER - 50 ML IVPB ONE ×3 (09:30→20:53)
[2019-06-13] MEDS ORDERED: PIPERACILLIN/TAZOBACTAM 3.375 GM VIAL IVPB ONE ×3 (09:30→20:53)
[2019-06-13] MEDS: PROPOFOL 1,000,000 MCG/100 ML VIAL IVPB SCH ×2 (09:35→18:22)
[2019-06-13] MEDS: SODIUM CHLORIDE 0.9%/KCL 20 MEQ/1,000 ML INFUS.BAG IV SCH (09:40)
[2019-06-13] MEDS: PIPERACILLIN/TAZOB 3.375 GM 3.375 GM in DEXTROSE 5%-WATER - 50 ML IVPB SCH ×2 (09:41→18:21)
[2019-06-13] MEDS: MAGNESIUM HYDROX 2400MG/30ML ORAL SUSPENSION 30 ML CUP GT SCH ×2 (09:42→21:07)
[2019-06-13] MEDS: BACITRACIN 15 GM TUBE TOPICAL OINTMENT TP SCH ×2 (09:44→21:14)
[2019-06-13] MEDS: MUPIROCIN 2% TOPICAL OINTMENT FOR DECOLONIZATION NS SCH ×2 (09:45→21:15)
[2019-06-13] MEDS: FAMOTIDINE 40 MG/5 ML ORAL SUSPENSION NGT SCH ×2 (09:46→21:22)
[2019-06-13] MEDS: ACYCLOVIR 200 MG/5 ML LIQUID GT SCH ×2 (09:47→21:22)
[2019-06-13] MEDS: cloBAZam 10 MG TABLET GT SCH ×2 (09:48→21:07)
[2019-06-13] MEDS: PHENobarbital 30 MG TABLET GT SCH ×2 (09:48→21:07)
[2019-06-13] MEDS: SODIUM CHLORIDE NASAL SPRAY 44 ML BOTTLE NS SCH ×2 (09:49→21:14)
[2019-06-13] MEDS: BACLOFEN 10 MG TABLET (FP) GT SCH ×2 (09:49→21:21)
[2019-06-13] MEDS: lamoTRIgine 100 MG TABLET PO SCH ×2 (09:50→21:18)
[2019-06-13] MEDS ORDERED: VANCOMYCIN 1 GM in D5W (PRE-DOCKED) 1,000 MG/250 ML IVPB ONE (10:00)
--- NOTE | 2019-06-13 10:52 | PN ---
Progress Note, Physician History of Present Illness: REMAINS INTUBATED NO ACUTE DISTRESS LOW GRADE TEMPS BC + GPC SPUTUM C/S PRESUMED PSEUDOMONAS - Current Medication List Current Medications: Active Medications Acyclovir (Zovirax Oral Suspension -) 400 mg GT BID [facility] Last Admin: 06/13/19 09:47 Dose: 400 mg Albuterol Sulfate (Ventolin 0.083% Nebulizer Soln -) 1 amp NEB RQ4H [facility] Last Admin: 06/13/19 08:38 Dose: Not Given Albuterol/Ipratropium (Duoneb -) 1 amp NEB RQID [facility] Last Admin: 06/13/19 07:30 Dose: 1 amp Bacitracin (Bacitracin -) 1 applic TP BID [facility] Last Admin: 06/13/19 09:44 Dose: 1 applic Baclofen (Lioresal -) 10 mg GT BID [facility] Last Admin: 06/13/19 09:49 Dose: 10 mg Chlorhexidine Gluconate (Hibiclens For Decolonization -) 1 applic TP HS [facility] Last Admin: 06/12/19 22:31 Dose: 1 applic Clobazam (Onfi -) 10 mg GT HS [facility] Last Admin: 06/12/19 22:33 Dose: 10 mg Clobazam (Onfi -) 5 mg GT DAILY [facility] Last Admin: 06/13/19 09:48 Dose: 5 mg Clonazepam (Klonopin -) 1.5 mg GT TID [facility] Last Admin: 06/13/19 05:05 Dose: 1.5 mg Diazepam (Diastat Rectal Gel -) 7.5 mg RC PRN PRN PRN Reason: Seizures Famotidine (Pepcid) 10 mg NGT BID [facility] Last Admin: 06/13/19 09:46 Dose: 10 mg Fluticasone Propionate (Flonase -) 2 spray NS AM [facility] Last Admin: 06/13/19 06:25 Dose: 2 sprays Heparin Sodium (Porcine) (Heparin -) 5,000 unit SQ TID [facility] Last Admin: 06/13/19 05:04 Dose: 5,000 unit Propofol (Diprivan -) 1,000,000 mcg in 100 mls @ 1.197 mls/hr IVPB TITR [facility]; Protocol Last Admin: 06/12/19 22:21 Dose: 10 mcg/kg/min, 2.395 mls/hr Piperacillin Sod/Tazobactam (Sod 3.375 gm/ Dextrose) 50 mls @ 100 mls/hr IVPB Q8H-IV [facility]; Protocol Last Admin: 06/13/19 09:41 Dose: 100 mls/hr Potassium Chloride/Sodium Chloride (Ns+20 Meq Kcl -) 20 meq in 1,000 mls @ 75 mls/hr IV ASDIR [facility] Last Admin: 06/13/19 09:40 Dose: 75 mls/hr Lactobacillus Acidophilus (Bacid -) 1 tab GT HS [facility] Last Admin: 06/12/19 22:23 Dose: 1 tab Lamotrigine (Lamictal -) 200 mg PO BID [facility] Last Admin: 06/13/19 09:50 Dose: 200 mg Magnesium Hydroxide (Milk Of Magnesia -) 20 ml GT BID [facility] Last Admin: 06/13/19 09:42 Dose: 20 ml Multivitamins/Minerals (Certavite-Antioxidant Liquid) 15 ml GT HS [facility] Last Admin: 06/12/19 22:27 Dose: 15 ml Mupirocin (Bactroban Ointment (For Decolonization) -) 1 applic NS BID [facility] Stop: 06/16/19 21:59 Last Admin: 06/13/19 09:45 Dose: 1 applic Non-Formulary Medication (Protein Supplement [Promod]) 946 ml GT DAILY [facility] Phenobarbital (Phenobarbital -) 45 mg GT BID [facility] Last Admin: 06/13/19 09:48 Dose: 45 mg Sodium Chloride (Im[place] Farrell Nasal Farrell -) 2 spray NS BID [facility] Last Admin: 06/13/19 09:49 Dose: 2 spray Vancomycin HCl (Vancomycin (Pre-Docked)) 1,000 mg IVPB DAILY [facility]; Protocol - Objective Vital Signs: Vital Signs Temperature 98.1 F 06/13/19 06:00 Pulse Rate 70 06/13/19 08:35 Respiratory Rate 14 06/13/19 09:23 Blood Pressure 103/47 L 06/13/19 08:00 O2 Sat by Pulse Oximetry (%) 99 06/13/19 09:23 Constitutional: Yes: No Distress Eyes: Yes: Conjunctiva Clear Cardiovascular: Yes: Regular Rate and Rhythm Respiratory: Yes: Mechanically Ventilated Gastrointestinal: Yes: Normal Bowel Sounds, Soft. No: Tenderness Labs: CBC, BMP 06/13/19 06:00 06/13/19 06:01 INR, PTT INR 1.13 (0.83-1.09) H 06/11/19 11:10 Assessment/Plan RESP FAILURE PNEUMONIA SPUTUM C/S PRESUMED PSEUDOMONAS S/P RECENT INFLUENZA CONTINUE ZOSYN, VENTILATORY SUPPORT
--- NOTE | 2019-06-13 12:07 | PN ---
Teaching Attending Note Name of Resident: Danay Blevins ATTENDING PHYSICIAN STATEMENT I saw and evaluated the patient. I reviewed the resident's note and discussed the case with the resident. I agree with the resident's findings and plan as documented. SUBJECTIVE: Pt seen and examined in the ICU. Remains intubated, awake off sedation. Still with copious thick secretions, less bloody. Good urine output after esqueda placement. OBJECTIVE: Vital Signs Period Temp Pulse Resp BP Sys/Linares Pulse Ox Last 24 Hr 98.1 F-100.2 F 51-70 14-14 94-112/46-72 99-100 Intake & Output 06/10/19 06/11/19 06/12/19 06/13/19 23:59 23:59 23:59 23:59 Intake Total 635 2074.8 684 Output Total 1850 1200 Balance 635 224.8 -516 Weight 40.3 kg 41.3 kg 43.091 kg Gen: intubated, awake Heart: RRR Lung: scattered rhonchi Abd: soft, nontender Ext: no edema, contracted CBC, BMP 06/13/19 06:00 06/13/19 06:01 Active Medications Acyclovir (Zovirax Oral Suspension -) 400 mg GT BID [facility] Last Admin: 06/13/19 09:47 Dose: 400 mg Albuterol Sulfate (Ventolin 0.083% Nebulizer Soln -) 1 amp NEB RQ4H [facility] Last Admin: 06/13/19 11:53 Dose: Not Given Albuterol/Ipratropium (Duoneb -) 1 amp NEB RQID [facility] Last Admin: 06/13/19 11:52 Dose: 1 amp Bacitracin (Bacitracin -) 1 applic TP BID [facility] Last Admin: 06/13/19 09:44 Dose: 1 applic Baclofen (Lioresal -) 10 mg GT BID [facility] Last Admin: 06/13/19 09:49 Dose: 10 mg Chlorhexidine Gluconate (Hibiclens For Decolonization -) 1 applic TP HS [facility] Last Admin: 06/12/19 22:31 Dose: 1 applic Clobazam (Onfi -) 10 mg GT HS [facility] Last Admin: 06/12/19 22:33 Dose: 10 mg Clobazam (Onfi -) 5 mg GT DAILY [facility] Last Admin: 06/13/19 09:48 Dose: 5 mg Clonazepam (Klonopin -) 1.5 mg GT TID [facility] Last Admin: 06/13/19 05:05 Dose: 1.5 mg Diazepam (Diastat Rectal Gel -) 7.5 mg RC PRN PRN PRN Reason: Seizures Famotidine (Pepcid) 10 mg NGT BID [facility] Last Admin: 06/13/19 09:46 Dose: 10 mg Fluticasone Propionate (Flonase -) 2 spray NS AM [facility] Last Admin: 06/13/19 06:25 Dose: 2 sprays Heparin Sodium (Porcine) (Heparin -) 5,000 unit SQ TID [facility] Last Admin: 06/13/19 05:04 Dose: 5,000 unit Propofol (Diprivan -) 1,000,000 mcg in 100 mls @ 1.197 mls/hr IVPB TITR [facility]; Protocol Last Admin: 06/12/19 22:21 Dose: 10 mcg/kg/min, 2.395 mls/hr Piperacillin Sod/Tazobactam (Sod 3.375 gm/ Dextrose) 50 mls @ 100 mls/hr IVPB Q8H-IV [facility]; Protocol Last Admin: 06/13/19 09:41 Dose: 100 mls/hr Potassium Chloride/Sodium Chloride (Ns+20 Meq Kcl -) 20 meq in 1,000 mls @ 75 mls/hr IV ASDIR [facility] Last Admin: 06/13/19 09:40 Dose: 75 mls/hr Lactobacillus Acidophilus (Bacid -) 1 tab GT HS [facility] Last Admin: 06/12/19 22:23 Dose: 1 tab Lamotrigine (Lamictal -) 200 mg PO BID [facility] Last Admin: 06/13/19 09:50 Dose: 200 mg Magnesium Hydroxide (Milk Of Magnesia -) 20 ml GT BID [facility] Last Admin: 06/13/19 09:42 Dose: 20 ml Multivitamins/Minerals (Certavite-Antioxidant Liquid) 15 ml GT HS [facility] Last Admin: 06/12/19 22:27 Dose: 15 ml Mupirocin (Bactroban Ointment (For Decolonization) -) 1 applic NS BID [facility] Stop: 06/16/19 21:59 Last Admin: 06/13/19 09:45 Dose: 1 applic Non-Formulary Medication (Protein Supplement [Promod]) 946 ml GT DAILY [facility] Phenobarbital (Phenobarbital -) 45 mg GT BID [facility] Last Admin: 06/13/19 09:48 Dose: 45 mg Sodium Chloride (Mer[place] Morris Nasal Morris -) 2 spray NS BID [facility] Last Admin: 06/13/19 09:49 Dose: 2 spray Vancomycin HCl (Vancomycin (Pre-Docked)) 1,000 mg IVPB DAILY [facility]; Protocol ASSESSMENT AND PLAN: Acute Hypoxic Respiratory Failure Pneumonia likely Aspiration Cerebral Palsy Mental Retardation Seizure Disorder GERD - antibiotics to cover aspiration - f/u cultures - inhaled bronchodilators - taper FiO2 to keep SpO2 >90% - IVF - monitor urine output, creatinine - replete lytes - enteral feeds - DVT/GI prophylaxis - continue ICU monitoring critical care time spent in reviewing chart, evaluating patient and formulating plan 35 min
--- NOTE | 2019-06-13 12:30 | CONS ---
INFECTIOUS DISEASE CONSULTATION DATE OF CONSULTATION: DATE OF DICTATION: 06/13/2019 HISTORY: The patient is a 24-year-old male with a history of cerebral palsy, mental retardation evaluated for pneumonia. The patient was recently admitted from [facility] from June 01 through June 09. At that time, he was admitted with fever and tachycardia. He developed respiratory failure requiring intubation. Influenza swab was positive, and he was treated with a course of Tamiflu. In addition, he received a course of Zosyn for presumed superimposed bacterial pneumonia. He returned to the facility, however, now returns to the hospital with recurrent shortness of breath. He, again, required intubation and is in the intensive care unit on a ventilator. His course is complicated by fever to 100.3 and elevated white blood cell count 18,000. He is unable to offer any additional details. Recent sputum culture is positive for pseudomonas. PAST MEDICAL HISTORY: Positive for cerebral palsy, mental retardation, seizure disorder, gastroesophageal reflux, history of pneumonia and respiratory failure, recent history of influenza. ALLERGIES: No known allergies. DIAGNOSTIC DATA: CAT scan of the chest shows residual infiltrates left greater than right lung field, which appears improved as compared with his CAT scan from June 02. White blood cell count on admission 18.2, creatinine 0.7. Urinalysis; 2 white cells. PHYSICAL EXAMINATION: General: He is intubated. Breathing is nonlabored. Vital Signs: Maximum temperature 100.3, blood pressure 96/64, pulse 110 regular, respirations 28 per minute. HEENT: Sclerae anicteric. Patient is orally intubated. Heart: S1, S2. Tachycardic. Lungs: Air entry bilaterally. Abdomen: Soft. Feeding gastrostomy tube is in place. No erythema or drainage. Extremities: Negative for edema. IMPRESSION: 1. Respiratory failure. 2. Recurrent pneumonia. 3. Cerebral palsy, mental retardation. 4. Status post recent influenza. PLAN: Continue ventilatory support. Await cultures. Continue empiric Zosyn. Thank you for the kind referral. JOSH YOUNG M.D. RAHEL/[id number]
[2019-06-13] MEDS ORDERED: SUCCINYLCHOLINE CHLORIDE 200 MG/10 ML SYRINGE ONE (13:25)
--- NOTE | 2019-06-13 13:46 | PROC ---
<Danay Blevins - Last Filed: 06/13/19 13:45> Intubation - Intubation Reason for Intubation: Respiratory Insufficiency, Airway Protection Time of Intubation: 13:35 Intubation Method: orotracheal Blade used: Mac (3) Tube Size (cm): 7.0 Tube position @ lip (cm): 18 Tube position confirmed by: Direct visualization, CO2 detector, Chest x-ray, Breath sounds Breath Sounds after Intubation: equal Post Intubation Xray: Yes <Jah Schmid MD - Last Filed: 06/13/19 13:52> Procedure Note Procedure: I supervised and was present during the entire procedure. Jah Schmid MD
[2019-06-13] MEDS ORDERED: SUCCINYLCHOLINE CHLORIDE 200 MG/10 ML VIAL IVPUSH ONE (13:58)
[2019-06-13] MEDS ORDERED: ALBUTEROL SO4 0.083% IH SOL 2.5 MG/3 ML VIAL.NEB. NEB PRN (14:31)
--- NOTE | 2019-06-13 14:38 | PN ---
Physical Exam: SUBJECTIVE: Patient seen and examined at bedside. Pt intubated off sedation now , FiO2 reduced to 40%/350/14/5. Pt coughing upon exam. No fevers overnight. OBJECTIVE: Vital Signs Period Temp Pulse Resp BP Sys/Linares Pulse Ox Last 24 Hr 98.1 F-100.2 F 51-70 14-14 94-112/46-72 99-100 GENERAL: The patient is coughing, awake. NECK: Trachea midline, full range of motion, supple. LUNGS: Breath sounds equal, clear to auscultation bilaterally, no wheezes, no crackles, no accessory muscle use. HEART: Regular rate and rhythm, S1, S2 without murmur, rub or gallop. ABDOMEN: Soft, PEG in place and clean EXTREMITIES: 2+ pulses, warm, well-perfused, no edema. NEUROLOGICAL: sedated SKIN: Warm, dry, no rashes or lesions noted Laboratory Results - last 24 hr 06/12/19 06/13/19 06/13/19 17:12 06:00 06:01 WBC 9.0 RBC 3.35 L Hgb 11.4 L Hct 33.1 L MCV 99.1 H MCH 33.9 H MCHC 34.2 RDW 13.7 Plt Count 236 MPV 9.4 Absolute Neuts (auto) 4.4 Neutrophils % 48.4 D Lymphocytes % 40.5 H D Monocytes % 10.4 H D Eosinophils % 0.4 D Basophils % 0.3 Nucleated RBC % 0 Anticoagulation Therapy Puncture Site ABG pH ABG pCO2 at Pt Temp ABG pO2 at Pt Temp ABG HCO3 ABG O2 Sat (Measured) ABG O2 Content ABG Base Excess Kaushal Test O2 Delivery Device Oxygen Flow Rate Vent Mode Vent Rate Mechanical Rate PEEP Pressure Support Vent Sodium 141 Potassium 3.2 L Chloride 111 H Carbon Dioxide 22 Anion Gap 7 L BUN 3.6 L Creatinine 0.5 L Est GFR (CKD-EPI)AfAm 177.03 Est GFR (CKD-EPI)NonAf 152.75 POC Glucometer 79 Random Glucose 94 Calcium 8.4 L Phosphorus 3.3 Magnesium 1.8 Total Bilirubin 0.5 AST 16 ALT 52 Alkaline Phosphatase 138 H Total Protein 6.3 L Albumin 2.7 L 06/13/19 06:13 WBC RBC Hgb Hct MCV MCH MCHC RDW Plt Count MPV Absolute Neuts (auto) Neutrophils % Lymphocytes % Monocytes % Eosinophils % Basophils % Nucleated RBC % Anticoagulation Therapy No Result Required. Puncture Site Left radial ABG pH 7.42 ABG pCO2 at Pt Temp 35.4 ABG pO2 at Pt Temp 179 H ABG HCO3 22.7 ABG O2 Sat (Measured) 99.1 H ABG O2 Content 14.6 ABG Base Excess -0.9 Kaushal Test Positive O2 Delivery Device Ventilator Oxygen Flow Rate 50% Vent Mode A/c Vent Rate No Result Required. Mechanical Rate No Result Required. PEEP 5.0 Pressure Support Vent No Result Required. Sodium Potassium Chloride Carbon Dioxide Anion Gap BUN Creatinine Est GFR (CKD-EPI)AfAm Est GFR (CKD-EPI)NonAf POC Glucometer Random Glucose Calcium Phosphorus Magnesium Total Bilirubin AST ALT Alkaline Phosphatase Total Protein Albumin Active Medications Generic Name Dose Route Start Last Admin Trade Name Freq PRN Reason Stop Dose Admin Acyclovir 400 mg 06/11/19 22:00 06/13/19 09:47 Zovirax Oral Suspension - GT 400 mg BID JORGE Administration Albuterol Sulfate 1 amp 06/13/19 14:31 Ventolin 0.083% Nebulizer Soln - NEB Q6H PRN WHEEZING Albuterol/Ipratropium 1 amp 06/12/19 08:00 06/13/19 11:52 Duoneb - NEB 1 amp RQID JORGE Administration Bacitracin 1 applic 06/11/19 22:00 06/13/19 09:44 Bacitracin - TP 1 applic BID JORGE Administration Baclofen 10 mg 06/11/19 22:00 06/13/19 09:49 Lioresal - GT 10 mg BID JORGE Administration Chlorhexidine Gluconate 1 applic 06/11/19 22:00 06/12/19 22:31 Hibiclens For Decolonization - TP 1 applic HS JORGE Administration Clobazam 10 mg 06/11/19 22:00 06/12/19 22:33 Onfi - GT 10 mg HS JORGE Administration Clobazam 5 mg 06/12/19 10:00 06/13/19 09:48 Onfi - GT 5 mg DAILY JORGE Administration Clonazepam 1.5 mg 06/11/19 22:00 06/13/19 05:05 Klonopin - GT 1.5 mg TID JORGE Administration Diazepam 7.5 mg 06/11/19 15:45 Diastat Rectal Gel - RC PRN PRN Seizures Famotidine 10 mg 06/11/19 22:00 06/13/19 09:46 Pepcid NGT 10 mg BID JORGE Administration Fluticasone Propionate 2 spray 06/12/19 07:00 06/13/19 06:25 Flonase - NS 2 sprays AM JORGE Administration Heparin Sodium (Porcine) 5,000 unit 06/11/19 14:00 06/13/19 05:04 Heparin - SQ 5,000 unit TID JORGE Administration Propofol 1,000,000 mcg in 100 mls @ 1.197 mls/hr 06/11/19 16:45 06/12/19 22: 21 Diprivan - IVPB 10 mcg/kg/min TITR JORGE 2.395 mls/hr Administration Protocol 5 MCG/KG/MIN Piperacillin Sod/Tazobactam 50 mls @ 100 mls/hr 06/13/19 08:00 06/13/19 09:41 Sod 3.375 gm/ Dextrose IVPB 100 mls/hr Q8H-IV JORGE Administration Protocol Potassium Chloride/Sodium Chloride 20 meq in 1,000 mls @ 75 mls/hr 06/13/19 08 :45 06/13/19 09:40 Ns+20 Meq Kcl - IV 75 mls/hr ASDIR JORGE Administration Lactobacillus Acidophilus 1 tab 06/11/19 22:00 06/12/19 22:23 Bacid - GT 1 tab HS JORGE Administration Lamotrigine 200 mg 06/11/19 22:00 06/13/19 09:50 Lamictal - PO 200 mg BID JORGE Administration Magnesium Hydroxide 20 ml 06/11/19 22:00 06/13/19 09:42 Milk Of Magnesia - GT 20 ml BID JORGE Administration Multivitamins/Minerals 15 ml 06/11/19 22:00 06/12/19 22:27 Certavite-Antioxidant Liquid GT 15 ml HS JORGE Administration Mupirocin 1 applic 06/11/19 22:00 06/13/19 09:45 Bactroban Ointment (For Decolonization) - NS 06/16/19 21:59 1 applic BID JORGE Administration Non-Formulary Medication 946 ml 06/12/19 10:00 Protein Supplement [Promod] GT DAILY JORGE Phenobarbital 45 mg 06/11/19 22:00 06/13/19 09:48 Phenobarbital - GT 45 mg BID JORGE Administration Sodium Chloride 2 spray 06/11/19 22:00 06/13/19 09:49 [place] Nasal [place] - NS 2 spray BID JORGE Administration Vancomycin HCl 1,000 mg 06/14/19 10:00 Vancomycin (Pre-Docked) IVPB DAILY JORGE Protocol ASSESSMENT/PLAN: Images: - CXR showing ? left side infiltrate vs atelectasis in retrocardiac area - CT chest- residual L>R patchy ground glass opacities in Lt and to lesser extent rt lung may reperesent infiltrates, moderately distended colon with air. 24 y/o M from [place] with hx of CP, epilepsy, herpes encephalitis, GERD, and aspiration pneumonia recently discharged from [facility] 2 days ago after being treated for sepsis 2/2 PNA and flu requiring intubation and ICU admission. Pt presenting with SOB and new oxygen requirements. Pt satting 98% on 4LNC with profuse coughing. Per chart from [place], pt O2 sat was at 85% on RA, but after 4L O2 it improved to 93%, with a pulse of 125, RR of 60/min. #Acute Hypoxic Respiratory failure with sepsis 2/2 likely aspiration PNA - CXR today showing minimal change of infiltrate with intubation tube needing to be pulled up slightly, ICU taking care of this. - UA 2+ Blood with 345 rbc's - pt has positive sputum cx pseudomonas as of 06/02 - ICU team monitoring - given IV zosyn 3.375, genta, azithro, vanco in ED, continue zosyn only per ID - MRSA nares sent - ID Dr Harrison on case - pt recently finished tamiflu regimen - wbc- 18.8 initially -> 9 today, off steroids. - BC showing gram positive cocci in clusters will wait for organism as well as C /S. - UA legionella, strep PNA negative - Chest CT ordered w/o contrast to assess ? infiltrate #Hypokalemia - 3.2 after 3 rounds of K riders yesterday - starts NS with 20 KCL added to it. #Seizure disorder - continue anti-seizure regimen - Clonazepam, Lamotrigene, Phenobarbital #Hx of herpes Encephalitis - maintained on Acyclovir # Recent elevation in transaminases ? sepsis related/Abx related US Abdo - no acute pathology. wnl now DVT: Hep 5K TID Visit type - Emergency Visit Emergency Visit: Yes ED Registration Date: 06/11/19 Care time: The patient presented to the Emergency Department on the above date and was hospitalized for further evaluation of their emergent condition. - New Patient This patient is new to me today: No - Critical Care Critical Care patient: Yes Total Critical Care Time (in minutes): 40 Critical Care Statement: The care of this patient involved high complexity decision making to prevent further life threatening deterioration of the patient 's condition and/or to evaluate & treat vital organ system(s) failure or risk of failure. - Discharge Referral Referred to [facility] Med P.C.: No ATTENDING PHYSICIAN STATEMENT I saw and evaluated the patient. I reviewed the resident's note and discussed the case with the resident. I agree with the resident's findings and plan as documented. SUBJECTIVE: OBJECTIVE: ASSESSMENT AND PLAN:
--- NOTE | 2019-06-13 18:32 | PN ---
Teaching Attending Note Name of Resident: Nash Kennedy ATTENDING PHYSICIAN STATEMENT I saw and evaluated the patient. I reviewed the resident's note and discussed the case with the resident. I agree with the resident's findings and plan as documented. SUBJECTIVE: Intubated/mechanically ventilated, non-verbal at baseline. OBJECTIVE: Tmax 100.3. Hemodynamically Stable. Intubated/Mechanically ventilated. Awake off sedation. Last Vital Signs Temp Pulse Resp BP Pulse Ox 100 F H 61 14 98/49 L 100 06/13/19 12:00 06/13/19 12:00 06/13/19 16:03 06/13/19 12:00 06/13/19 11:53 Heart - S1, S2, RRR Lungs - good air entry bilaterally Abdomen - Soft, non-tender. PEG site clean. Bowel Sounds normal. Extremities - wasting, contractures LEs Laboratory Results - last 24 hr 06/13/19 06/13/19 06/13/19 06:00 06:01 06:13 WBC 9.0 RBC 3.35 L Hgb 11.4 L Hct 33.1 L MCV 99.1 H MCH 33.9 H MCHC 34.2 RDW 13.7 Plt Count 236 MPV 9.4 Absolute Neuts (auto) 4.4 Neutrophils % 48.4 D Lymphocytes % 40.5 H D Monocytes % 10.4 H D Eosinophils % 0.4 D Basophils % 0.3 Nucleated RBC % 0 Anticoagulation Therapy No Result Required. Puncture Site Left radial ABG pH 7.42 ABG pCO2 at Pt Temp 35.4 ABG pO2 at Pt Temp 179 H ABG HCO3 22.7 ABG O2 Sat (Measured) 99.1 H ABG O2 Content 14.6 ABG Base Excess -0.9 Kaushal Test Positive O2 Delivery Device Ventilator Oxygen Flow Rate 50% Vent Mode A/c Vent Rate No Result Required. Mechanical Rate No Result Required. PEEP 5.0 Pressure Support Vent No Result Required. Sodium 141 Potassium 3.2 L Chloride 111 H Carbon Dioxide 22 Anion Gap 7 L BUN 3.6 L Creatinine 0.5 L Est GFR (CKD-EPI)AfAm 177.03 Est GFR (CKD-EPI)NonAf 152.75 Random Glucose 94 Calcium 8.4 L Phosphorus 3.3 Magnesium 1.8 Total Bilirubin 0.5 AST 16 ALT 52 Alkaline Phosphatase 138 H Total Protein 6.3 L Albumin 2.7 L Current Medications Generic Name Dose Route Start Last Admin Trade Name Freq PRN Reason Stop Dose Admin Acyclovir 400 mg 06/11/19 22:00 06/13/19 09:47 Zovirax Oral Suspension - GT 400 mg BID JOGRE Administration Albuterol Sulfate 1 amp 06/13/19 14:31 Ventolin 0.083% Nebulizer Soln - NEB Q6H PRN WHEEZING Albuterol/Ipratropium 1 amp 06/12/19 08:00 06/13/19 15:52 Duoneb - NEB 1 amp RQID JORGE Administration Bacitracin 1 applic 06/11/19 22:00 06/13/19 09:44 Bacitracin - TP 1 applic BID JORGE Administration Baclofen 10 mg 06/11/19 22:00 06/13/19 09:49 Lioresal - GT 10 mg BID JORGE Administration Chlorhexidine Gluconate 1 applic 06/11/19 22:00 06/12/19 22:31 Hibiclens For Decolonization - TP 1 applic HS JORGE Administration Clobazam 10 mg 06/11/19 22:00 06/12/19 22:33 Onfi - GT 10 mg HS JORGE Administration Clobazam 5 mg 06/12/19 10:00 06/13/19 09:48 Onfi - GT 5 mg DAILY JORGE Administration Clonazepam 1.5 mg 06/11/19 22:00 06/13/19 14:53 Klonopin - GT 1.5 mg TID JORGE Administration Diazepam 7.5 mg 06/11/19 15:45 Diastat Rectal Gel - RC PRN PRN Seizures Famotidine 10 mg 06/11/19 22:00 06/13/19 09:46 Pepcid NGT 10 mg BID JORGE Administration Fluticasone Propionate 2 spray 06/12/19 07:00 06/13/19 06:25 Flonase - NS 2 sprays AM JORGE Administration Heparin Sodium (Porcine) 5,000 unit 06/11/19 14:00 06/13/19 14:59 Heparin - SQ 5,000 unit TID JORGE Administration Propofol 1,000,000 mcg in 100 mls @ 1.197 mls/hr 06/11/19 16:45 06/13/19 18: 22 Diprivan - IVPB Not Given TITR JORGE Protocol 5 MCG/KG/MIN Piperacillin Sod/Tazobactam 50 mls @ 100 mls/hr 06/13/19 08:00 06/13/19 18:21 Sod 3.375 gm/ Dextrose IVPB 100 mls/hr Q8H-IV JORGE Administration Protocol Potassium Chloride/Sodium Chloride 20 meq in 1,000 mls @ 75 mls/hr 06/13/19 08 :45 06/13/19 09:40 Ns+20 Meq Kcl - IV 75 mls/hr ASDIR JORGE Administration Lactobacillus Acidophilus 1 tab 06/11/19 22:00 06/12/19 22:23 Bacid - GT 1 tab HS JORGE Administration Lamotrigine 200 mg 06/11/19 22:00 06/13/19 09:50 Lamictal - PO 200 mg BID JORGE Administration Magnesium Hydroxide 20 ml 06/11/19 22:00 06/13/19 09:42 Milk Of Magnesia - GT 20 ml BID JORGE Administration Multivitamins/Minerals 15 ml 06/11/19 22:00 06/12/19 22:27 Certavite-Antioxidant Liquid GT 15 ml HS JORGE Administration Mupirocin 1 applic 06/11/19 22:00 06/13/19 09:45 Bactroban Ointment (For Decolonization) - NS 06/16/19 21:59 1 applic BID JORGE Administration Non-Formulary Medication 946 ml 06/12/19 10:00 Protein Supplement [Promod] GT DAILY JORGE Phenobarbital 45 mg 06/11/19 22:00 06/13/19 09:48 Phenobarbital - GT 45 mg BID JORGE Administration Sodium Chloride 2 spray 06/11/19 22:00 06/13/19 09:49 [place] Nasal [place] - NS 2 spray BID JORGE Administration Vancomycin HCl 1,000 mg 06/14/19 10:00 Vancomycin (Pre-Docked) IVPB DAILY [facility] Protocol Home Medications Medication Instructions Recorded Acyclovir 400 mg GT BID 04/25/17 Baclofen 10 mg GT BID 04/25/17 Clobazam [Onfi -] 10 mg GT HS 04/25/17 Clonazepam 1.5 mg GT TID 04/25/17 Lactobacillus Acidophilus 1 each GT HS 04/25/17 [Acidophilus] Lamotrigine 200 mg GT BID 04/25/17 Multivitamin [Poly-Vitamin] 1 each GT HS 04/25/17 Phenobarbital 48.6 mg GT BID 04/25/17 Ranitidine [Zantac -] 75 mg GT BID #0 tab 03/29/18 Diazepam Rectal Gel [Diastat 7.5 mg IA PRN PRN 05/23/18 Rectal Gel -] Protein Supplement [Promod] 946 ml GT DAILY 05/23/18 Budesonide [Pulmicort 0.25 mg 1 neb IH BID 02/05/19 Nebulizer -] Fluticasone Prop 0.05% Nasal 2 spray NS AM 02/05/19 [Flonase -] Magnesium Hydrox 2400MG/30Ml [Milk 20 ml GT BID 02/05/19 of Magnesia -] Albuterol 2.5/Ipratropium 0.5 1 neb IH QID PRN #30 neb 02/14/19 [Duoneb -] Clobazam [Onfi -] 5 mg GT DAILY #30 tablet MDD 5mg 02/14/19 /24h Bacitracin - [Bacitracin Topical 1 applic TP BID 06/01/19 Ointment -] Sodium Chloride/Aloe Vera [[place] 22 ml NS BID 06/01/19 Saline Nasal Gel [place]] predniSONE [Deltasone -] 10 mg PEG DAILY #2 tablet 06/09/19 predniSONE [Deltasone -] 20 mg PEG DAILY #6 tablet 06/09/19 ASSESSMENT AND PLAN: 24 year old male [place] resident with history of Cerebral Palsy, Developmental Delay, cognitive impairment, functional quadriplegia, seizure disorder, Hx of herpes encephalitis, GERD, Asthma/reactive airway disease, and Hx of aspiration pneumonia, recently discharged from [facility] 06/09 after being treated (with Tamiflu, Zosyn, Steroid) for resp failure sec to Influenza and Pseudomonal Pneumonia requiring Intubation/Ventilation, re-presents from [place]. 1. Acute Hypoxic Respiratory failure and Sepsis secondary to recurrent/ persistent Aspiration Pneumonia s/p Intubation 06/11/19 CT Chest - bilateral infiltrates Sputum Cx again Pseudomonas positive Recently completed course of Tamiflu for Influenza A Urine Legionella neg Blood Cx - 1 bottle pos for gram pos cocci in clusters, likely contaminant. repeat Blood Cx pending. ID following. Leukocytosis resolved. Continue Zosyn. Vanco added pending Blood Cx final ID and Sens. ID following. Vent management as per Pulm 2. Seizure disorder - continue anti-seizure regimen (Clonazepam, Lamotrigene, Phenobarbital) 3. Hx of Herpes Encephalitis - maintained on Acyclovir 4. Recent elevation in transaminases ? sepsis related/Abx related US Abdo - no acute pathology. Improving. will monitor. DVT PX - Heparin SQ GI Px - Famotidine
[2019-06-13] MEDS: CHLORHEXIDINE GLUCONATE 4% CLEANSER FOR DECOLONIZATION TP SCH (21:05)
[2019-06-13] MEDS: LACTOBACILLUS ACIDOPHILUS 1 TABLET GT SCH (21:07)
[2019-06-13] MEDS: MULTIVIT-MINERALS ORAL LIQUID GT SCH (21:21)
[2019-06-14] MEDS: SODIUM CHLORIDE 0.9%/KCL 20 MEQ/1,000 ML INFUS.BAG IV SCH ×2 (01:00→09:03)
[2019-06-14] MEDS: PROPOFOL 1,000,000 MCG/100 ML VIAL IVPB SCH ×2 (01:00→16:50)
[2019-06-14] MEDS: PIPERACILLIN/TAZOB 3.375 GM 3.375 GM in DEXTROSE 5%-WATER - 50 ML IVPB SCH ×3 (02:23→17:05)
[2019-06-14] MEDS: clonazePAM 0.5 MG TABLET GT SCH ×3 (05:02→22:16)
[2019-06-14] MEDS: HEPARIN NA (PORCINE) 5,000 UNITS/ML 1ML VIAL SQ SCH ×3 (05:02→22:15)
[2019-06-14] MEDS: FLUTICASONE PROP 0.05% 16 GM NASAL SPRAY NS SCH (06:37)
[2019-06-14] MEDS: ALBUTEROL SO4 2.5/IPRATROPIUM 0.5 INH SOL 3 ML VIAL.NEB. NEB SCH ×4 (07:35→20:50)
--- NOTE | 2019-06-14 07:53 | PN ---
Teaching Attending Note Name of Resident: Nash Kennedy ATTENDING PHYSICIAN STATEMENT I saw and evaluated the patient. I reviewed the resident's note and discussed the case with the resident. I agree with the resident's findings and plan as documented. Seen and examined; please see resident note for further historical information. I personally verified all alvarez historical information and exam findings. Personally interpreted all imaging and diagnostics and reviewed appropriate consults. I reviewed all labs and vital signs as per resident note and EMR as documented. I agree with the above assessment and plan unless supplemented by myself in the following. Reintubated as per events dictated in resident note. Defer majority of care to ICU team. Will work to wean off the vent, addressing sedation 10 item review of systems completed and is negative aside from as discussed in the subjective data in my own/the resident documentation. VS, labs, imaging reviewed Intubated and sedated on ventillator resting in bed, vent settings per flowsheet ET Tube in place; IV access noted with no apparent surrounding cellulitis RRR s1/2 no mgr Normal muscle tone, moves all 5 extremities with normal apparent strength Neck is supple, trachea midline, no [place] LN Lungs CTAB with sym expansion NT ND +BS no [place]en organomegaly CN2-12 wnl; no FND but limited given clinical circumstances. NC AT EOMI PERRLA Not agitated, cannot complete full psych assessment No skin breakdown or rashes noted Assessment and plan: Patient presents with acute hypoxic respiratory failure likely secondary to acute aspiration pneumonia which is secondary to his dysphagia due to his ongoing issues with chronic medical problems. He is on inhaled bronchodilators with FiO2 being tapered to keep the SPO2 greater than 90% as per the ICU team. We will resume spontaneous breathing trials once secretions are decreased. He remains on broad-spectrum antibiotics and his home antiepileptic drugs. Problems include: Acute hypoxic respiratory failure secondary to aspiration pneumonia Sepsis secondary to aspiration pneumonia Seizure disorder, on home medications, no seizure activity noted Mental Retardation, cerebral palsy GERD Full Code
--- NOTE | 2019-06-14 08:41 | PN ---
Physical Exam: SUBJECTIVE: Patient seen and examined in ICU. Pt coughed up tube and had to be reintubated. Pt on precedex sedated on vent. OBJECTIVE: Vital Signs Period Temp Pulse Resp BP Sys/Linares Pulse Ox Last 24 Hr 99.2 F-100 F 53-84 14-14 93-121/43-78 98-100 GENERAL: The patient is vented and sedated NECK: Trachea midline, full range of motion, supple. LUNGS: Breath sounds equal, clear to auscultation bilaterally, no wheezes, no crackles, no accessory muscle use. HEART: Regular rate and rhythm, S1, S2 without murmur, rub or gallop. ABDOMEN: Soft, nontender, nondistended, normoactive bowel sounds, no guarding, no rebound, no hepatosplenomegaly, no masses. EXTREMITIES: 2+ pulses, warm, well-perfused, no edema. NEUROLOGICAL: Cranial nerves II through XII grossly intact. Normal speech, gait not observed. PSYCH: Normal mood, normal affect. SKIN: Warm, dry, normal turgor, no rashes or lesions noted Active Medications Generic Name Dose Route Start Last Admin Trade Name Freq PRN Reason Stop Dose Admin Acyclovir 400 mg 06/11/19 22:00 06/13/19 21:22 Zovirax Oral Suspension - GT 400 mg BID JORGE Administration Albuterol Sulfate 1 amp 06/13/19 14:31 Ventolin 0.083% Nebulizer Soln - NEB Q6H PRN WHEEZING Albuterol/Ipratropium 1 amp 06/12/19 08:00 06/13/19 20:30 Duoneb - NEB 1 amp RQID JORGE Administration Bacitracin 1 applic 06/11/19 22:00 06/13/19 21:14 Bacitracin - TP 1 applic BID JORGE Administration Baclofen 10 mg 06/11/19 22:00 06/13/19 21:21 Lioresal - GT 10 mg BID JORGE Administration Chlorhexidine Gluconate 1 applic 06/11/19 22:00 06/13/19 21:05 Hibiclens For Decolonization - TP 1 applic HS JORGE Administration Clobazam 10 mg 06/11/19 22:00 06/13/19 21:07 Onfi - GT 10 mg HS JORGE Administration Clobazam 5 mg 06/12/19 10:00 06/13/19 09:48 Onfi - GT 5 mg DAILY JORGE Administration Clonazepam 1.5 mg 06/11/19 22:00 06/14/19 05:02 Klonopin - GT 1.5 mg TID JORGE Administration Diazepam 7.5 mg 06/11/19 15:45 Diastat Rectal Gel - RC PRN PRN Seizures Famotidine 10 mg 06/11/19 22:00 06/13/19 21:22 Pepcid NGT 10 mg BID JORGE Administration Fluticasone Propionate 2 spray 06/12/19 07:00 06/14/19 06:37 Flonase - NS 2 sprays AM JORGE Administration Heparin Sodium (Porcine) 5,000 unit 06/11/19 14:00 06/14/19 05:02 Heparin - SQ 5,000 unit TID JORGE Administration Propofol 1,000,000 mcg in 100 mls @ 1.197 mls/hr 06/11/19 16:45 06/14/19 06: 53 Diprivan - IVPB 25 mcg/kg/min TITR JORGE 5.987 mls/hr Titration Protocol 5 MCG/KG/MIN Piperacillin Sod/Tazobactam 50 mls @ 100 mls/hr 06/13/19 08:00 06/14/19 02:23 Sod 3.375 gm/ Dextrose IVPB 100 mls/hr Q8H-IV JORGE Administration Protocol Potassium Chloride/Sodium Chloride 20 meq in 1,000 mls @ 75 mls/hr 06/13/19 08 :45 06/14/19 01:00 Ns+20 Meq Kcl - IV 75 mls/hr ASDIR JORGE Administration Lactobacillus Acidophilus 1 tab 06/11/19 22:00 06/13/19 21:07 Bacid - GT 1 tab HS JORGE Administration Lamotrigine 200 mg 06/11/19 22:00 06/13/19 21:18 Lamictal - PO 200 mg BID JORGE Administration Magnesium Hydroxide 20 ml 06/11/19 22:00 06/13/19 21:07 Milk Of Magnesia - GT 20 ml BID JORGE Administration Multivitamins/Minerals 15 ml 06/11/19 22:00 06/13/19 21:21 Certavite-Antioxidant Liquid GT 15 ml HS JORGE Administration Mupirocin 1 applic 06/11/19 22:00 06/13/19 21:15 Bactroban Ointment (For Decolonization) - NS 06/16/19 21:59 1 applic BID JORGE Administration Non-Formulary Medication 946 ml 06/12/19 10:00 Protein Supplement [Promod] GT DAILY JORGE Phenobarbital 45 mg 06/11/19 22:00 06/13/19 21:07 Phenobarbital - GT 45 mg BID JORGE Administration Sodium Chloride 2 spray 06/11/19 22:00 06/13/19 21:14 [place] Nasal [place] - NS 2 spray BID JORGE Administration Vancomycin HCl 1,000 mg 06/14/19 10:00 Vancomycin (Pre-Docked) IVPB DAILY JORGE Protocol ASSESSMENT/PLAN: Images: - CXR showing ? left side infiltrate vs atelectasis in retrocardiac area - CT chest- residual L>R patchy ground glass opacities in Lt and to lesser extent rt lung may reperesent infiltrates, moderately distended colon with air. 24 y/o M from [place] with hx of CP, epilepsy, herpes encephalitis, GERD, and aspiration pneumonia recently discharged from [facility] 2 days ago after being treated for sepsis 2/2 PNA and flu requiring intubation and ICU admission. Pt presenting with SOB and new oxygen requirements. Pt satting 98% on 4LNC with profuse coughing. Per chart from [facility], pt O2 sat was at 85% on RA, but after 4L O2 it improved to 93%, with a pulse of 125, RR of 60/min. #Acute Hypoxic Respiratory failure with sepsis 2/2 likely aspiration PNA - CXR today showing no change of infiltrate with intubation tube in correct site - pt has positive sputum cx pseudomonas as of 06/02 - ICU team monitoring - continue zosyn only per ID - MRSA nares negative - ID Dr Harrison on case - pt recently finished tamiflu regimen - wbc- 18.8 initially -> 9 today, off steroids. - BC showing gram positive cocci in clusters will wait for organism as well as C /S. - UA legionella, strep PNA negative - Chest CT ordered w/o contrast to assess ? infiltrate #Hypokalemia - resolved can stop the addition of K to fluids. - NS with 20 KCL added to it has #Seizure disorder - continue anti-seizure regimen - Clonazepam, Lamotrigene, Phenobarbital #Hx of herpes Encephalitis - maintained on Acyclovir # Recent elevation in transaminases ? sepsis related/Abx related US Abdo - no acute pathology. wnl now DVT: Hep 5K TID Visit type - Emergency Visit Emergency Visit: Yes ED Registration Date: 06/11/19 Care time: The patient presented to the Emergency Department on the above date and was hospitalized for further evaluation of their emergent condition. - New Patient This patient is new to me today: Yes Date on this admission: 06/14/19 - Critical Care Critical Care patient: Yes Total Critical Care Time (in minutes): 35 Critical Care Statement: The care of this patient involved high complexity decision making to prevent further life threatening deterioration of the patient 's condition and/or to evaluate & treat vital organ system(s) failure or risk of failure. - Discharge Referral Referred to [facility] Med P.C.: No ATTENDING PHYSICIAN STATEMENT I saw and evaluated the patient. I reviewed the resident's note and discussed the case with the resident. I agree with the resident's findings and plan as documented. SUBJECTIVE: OBJECTIVE: ASSESSMENT AND PLAN:
[2019-06-14 08:54] LABS: BASO % 0.3 % (0-2.0); EOS % 0.5 % (0-4.5); HEMATOCRIT 34.5 % (35.4-49); HEMOGLOBIN 11.9 GM/dL (11.7-16.9); LYMPH % 20.5 % (8-40); MCH 34.3 pg (25.7-33.7); MCHC 34.5 g/dl (32.0-35.9); MEAN CELL VOLUME 99.4 fl (80-96); MEAN PLT VOLUME 9.1 fl (7.5-11.1); NEUT % 66.7 % (42.8-82.8); PLATELET COUNT 276 K/MM3 (134-434); RBC 3.47 M/mm3 (4.00-5.60); RDW 13.6 % (11.9-15.9); WHITE BLOOD COUNT 7.1 K/mm3 (4.0-10.0)
[2019-06-14] MEDS ORDERED: DEXTROSE 5%-WATER - 50 ML IVPB ONE ×2 (09:11→16:52)
[2019-06-14] MEDS ORDERED: PIPERACILLIN/TAZOBACTAM 3.375 GM VIAL IVPB ONE ×2 (09:11→16:52)
[2019-06-14] MEDS: MUPIROCIN 2% TOPICAL OINTMENT FOR DECOLONIZATION NS SCH ×2 (09:20→22:16)
[2019-06-14] MEDS: BACITRACIN 15 GM TUBE TOPICAL OINTMENT TP SCH ×2 (09:20→22:17)
[2019-06-14] MEDS: lamoTRIgine 100 MG TABLET PO SCH ×2 (09:22→22:16)
[2019-06-14 09:23] LABS: ALBUMIN 2.8 g/dl (3.4-5.0); BILIRUBIN,TOTAL 0.3 mg/dL (0.2-1); BLOOD UREA NITROGEN 4.2 mg/dL (7-18); CALCIUM 8.6 mg/dL (8.5-10.1); CREATININE 0.6 mg/dL (0.55-1.3); MAGNESIUM 2.2 mg/dL (1.8-2.4); PHOSPHOROUS 2.5 mg/dL (2.5-4.9); POTASSIUM 4.3 mmol/L (3.5-5.1); TOT PROT 6.6 g/dl (6.4-8.2)
[2019-06-14] MEDS: MAGNESIUM HYDROX 2400MG/30ML ORAL SUSPENSION 30 ML CUP GT SCH ×2 (09:23→22:14)
[2019-06-14] MEDS: BACLOFEN 10 MG TABLET (FP) GT SCH ×2 (09:23→22:16)
[2019-06-14] MEDS: cloBAZam 10 MG TABLET GT SCH ×2 (09:31→22:16)
[2019-06-14] MEDS: FAMOTIDINE 40 MG/5 ML ORAL SUSPENSION NGT SCH ×2 (09:31→22:15)
[2019-06-14] MEDS: PHENobarbital 30 MG TABLET GT SCH ×2 (09:31→22:15)
[2019-06-14] MEDS: ACYCLOVIR 200 MG/5 ML LIQUID GT SCH ×2 (09:32→22:13)
[2019-06-14] MEDS: SODIUM CHLORIDE NASAL SPRAY 44 ML BOTTLE NS SCH ×2 (10:00→22:17)
[2019-06-14] MEDS ORDERED: VANCOMYCIN 1 GM in D5W (PRE-DOCKED) 1,000 MG/250 ML IVPB SCH (10:00)
[2019-06-14] MEDS ORDERED: MIDAZOLAM IN 0.9 % SOD.CHLORID 1 MG/1 ML PLAST..BAG ONE (12:06)
[2019-06-14] MEDS: MIDAZOLAM 100 MG in SODIUM CHLORIDE 100 ML IVPB SCH (12:30)
--- NOTE | 2019-06-14 13:12 | PN ---
Teaching Attending Note Name of Resident: Maurice Watson ATTENDING PHYSICIAN STATEMENT I saw and evaluated the patient. I reviewed the resident's note and discussed the case with the resident. I agree with the resident's findings and plan as documented. SUBJECTIVE: Pt seen and examined in the ICU. Reintubated yesterday after pt coughed out ETT. Still with copious secretions. OBJECTIVE: Vital Signs Period Temp Pulse Resp BP Sys/Linares Pulse Ox Last 24 Hr 99.2 F-99.9 F 53-84 14-14 93-121/43-78 98-99 Intake & Output 06/11/19 06/12/19 06/13/19 06/14/19 23:59 23:59 23:59 23:59 Intake Total 635 2074.8 1999.8 1660 Output Total 1850 3800 400 Balance 635 224.8 -1800.2 1260 Weight 40.3 kg 41.3 kg 43.091 kg 43.363 kg Gen: intubated, sedated Heart: RRR Lung: scattered rhonchi Abd: soft, nontender Ext: no edema, contracted CBC, BMP 06/14/19 08:27 06/14/19 08:27 Active Medications Acyclovir (Zovirax Oral Suspension -) 400 mg GT BID [facility] Last Admin: 06/14/19 09:32 Dose: 400 mg Albuterol Sulfate (Ventolin 0.083% Nebulizer Soln -) 1 amp NEB Q6H PRN PRN Reason: WHEEZING Albuterol/Ipratropium (Duoneb -) 1 amp NEB RQID [facility] Last Admin: 06/14/19 11:25 Dose: 1 amp Bacitracin (Bacitracin -) 1 applic TP BID [facility] Last Admin: 06/14/19 09:20 Dose: 1 applic Baclofen (Lioresal -) 10 mg GT BID [facility] Last Admin: 06/14/19 09:23 Dose: 10 mg Chlorhexidine Gluconate (Hibiclens For Decolonization -) 1 applic TP HS [facility] Last Admin: 06/13/19 21:05 Dose: 1 applic Clobazam (Onfi -) 10 mg GT HS [facility] Last Admin: 06/13/19 21:07 Dose: 10 mg Clobazam (Onfi -) 5 mg GT DAILY [facility] Last Admin: 06/14/19 09:31 Dose: 5 mg Clonazepam (Klonopin -) 1.5 mg GT TID [facility] Last Admin: 06/14/19 05:02 Dose: 1.5 mg Diazepam (Diastat Rectal Gel -) 7.5 mg RC PRN PRN PRN Reason: Seizures Famotidine (Pepcid) 10 mg NGT BID [facility] Last Admin: 06/14/19 09:31 Dose: 10 mg Fluticasone Propionate (Flonase -) 2 spray NS AM [facility] Last Admin: 06/14/19 06:37 Dose: 2 sprays Heparin Sodium (Porcine) (Heparin -) 5,000 unit SQ TID [facility] Last Admin: 06/14/19 05:02 Dose: 5,000 unit Propofol (Diprivan -) 1,000,000 mcg in 100 mls @ 1.197 mls/hr IVPB TITR [facility]; Protocol Last Titration: 06/14/19 12:12 Dose: 0 mcg/kg/min, 0 mls/hr Piperacillin Sod/Tazobactam (Sod 3.375 gm/ Dextrose) 50 mls @ 100 mls/hr IVPB Q8H-IV [facility]; Protocol Last Admin: 06/14/19 09:32 Dose: 100 mls/hr Potassium Chloride/Sodium Chloride (Ns+20 Meq Kcl -) 20 meq in 1,000 mls @ 75 mls/hr IV ASDIR [facility] Last Admin: 06/14/19 09:03 Dose: Not Given Midazolam HCl 100 mg/ Sodium (Chloride) 100 mls @ 4 mls/hr IVPB TITR [facility]; Protocol Lactobacillus Acidophilus (Bacid -) 1 tab GT HS [facility] Last Admin: 06/13/19 21:07 Dose: 1 tab Lamotrigine (Lamictal -) 200 mg PO BID [facility] Last Admin: 06/14/19 09:22 Dose: 200 mg Magnesium Hydroxide (Milk Of Magnesia -) 20 ml GT BID [facility] Last Admin: 06/14/19 09:23 Dose: 20 ml Multivitamins/Minerals (Certavite-Antioxidant Liquid) 15 ml GT HS [facility] Last Admin: 06/13/19 21:21 Dose: 15 ml Mupirocin (Bactroban Ointment (For Decolonization) -) 1 applic NS BID [facility] Stop: 06/16/19 21:59 Last Admin: 06/14/19 09:20 Dose: 1 applic Phenobarbital (Phenobarbital -) 45 mg GT BID [facility] Last Admin: 06/14/19 09:31 Dose: 45 mg Sodium Chloride ([address] [place] Nasal [place] -) 2 spray NS BID [facility] Last Admin: 06/14/19 10:00 Dose: 2 spray Vancomycin HCl (Vancomycin (Pre-Docked)) 1,000 mg IVPB DAILY [facility]; Protocol ASSESSMENT AND PLAN: Acute Hypoxic Respiratory Failure Pneumonia likely Aspiration Cerebral Palsy Mental Retardation Seizure Disorder GERD - antibiotics to cover aspiration - inhaled bronchodilators - taper FiO2 to keep SpO2 >90% - monitor urine output, creatinine - replete lytes - enteral feeds - spontaneous breathing trials as tolerated when secretions lessen - DVT/GI prophylaxis - continue ICU monitoring critical care time spent in reviewing chart, evaluating patient and formulating plan 35 min
[2019-06-14] MEDS ORDERED: PT OWN MED DRAWER 7, Y5N ONE (14:44)
[2019-06-14] MEDS: DEXMEDETOMIDINE HCL 200 MCG in SODIUM CHLORIDE 48 ML IVPB SCH (15:15)
[2019-06-14] MEDS: LACTATED RINGERS SOLUTION 1,000 ML/1,000 ML INFUS.BAG IV SCH (15:40)
--- NOTE | 2019-06-14 16:46 | PN ---
Physical Exam: SUBJECTIVE: Patient seen and examined in the morning. No acute events in the morning. Patient is sedated and intubated. Sedation switched to precedex from midazolam. OBJECTIVE: Vital Signs Period Temp Pulse Resp BP Sys/Linares Pulse Ox Last 24 Hr 98.6 F-99.9 F 53-70 14-22 92-120/43-73 98-99 GENERAL: Sedated, intubated. HEAD: Normocephalic EARS, NOSE, THROAT: Copious amounts of secretions. LUNGS: Rhonchi present bilaterally. HEART: Regular rate and rhythm, normal S1 and S2 without murmur, rub or gallop. ABDOMEN: PEG tube present, no erythema around site. Soft, nontender, not distended, normoactive bowel sounds, no guarding, no rebound, no masses. . MUSCULOSKELETAL:Patient currently contracted. UPPER EXTREMITIES: 2+ pulses, warm, well-perfused. No cyanosis. No clubbing. Cap refill <2 seconds. No peripheral edema. LOWER EXTREMITIES: 2+ pulses, warm, well-perfused. No calf tenderness. No peripheral edema. NEUROLOGICAL: Unable to assess. SKIN: Maculopapular rash on chest. Laboratory Results - last 24 hr 06/14/19 06/14/19 08:27 08:27 WBC 7.1 RBC 3.47 L Hgb 11.9 Hct 34.5 L MCV 99.4 H MCH 34.3 H MCHC 34.5 RDW 13.6 Plt Count 276 MPV 9.1 Absolute Neuts (auto) 4.7 Neutrophils % 66.7 D Lymphocytes % 20.5 D Monocytes % 12.0 H Eosinophils % 0.5 Basophils % 0.3 Nucleated RBC % 0 Sodium 141 Potassium 4.3 Chloride 111 H Carbon Dioxide 24 Anion Gap 5 L BUN 4.2 L Creatinine 0.6 Est GFR (CKD-EPI)AfAm 164.25 Est GFR (CKD-EPI)NonAf 141.72 Random Glucose 102 Calcium 8.6 Phosphorus 2.5 Magnesium 2.2 Total Bilirubin 0.3 AST 21 ALT 49 Alkaline Phosphatase 161 H Total Protein 6.6 Albumin 2.8 L Active Medications Generic Name Dose Route Start Last Admin Trade Name Freq PRN Reason Stop Dose Admin Acyclovir 400 mg 06/11/19 22:00 06/14/19 09:32 Zovirax Oral Suspension - GT 400 mg BID [facility] Administration Albuterol Sulfate 1 amp 06/13/19 14:31 Ventolin 0.083% Nebulizer Soln - NEB Q6H PRN WHEEZING Albuterol/Ipratropium 1 amp 06/12/19 08:00 06/14/19 15:45 Duoneb - NEB 1 amp RQID [facility] Administration Bacitracin 1 applic 06/11/19 22:00 06/14/19 09:20 Bacitracin - TP 1 applic BID [facility] Administration Baclofen 10 mg 06/11/19 22:00 06/14/19 09:23 Lioresal - GT 10 mg BID [facility] Administration Chlorhexidine Gluconate 1 applic 06/11/19 22:00 06/13/19 21:05 Hibiclens For Decolonization - TP 1 applic HS [facility] Administration Clobazam 10 mg 06/11/19 22:00 06/13/19 21:07 Onfi - GT 10 mg HS [facility] Administration Clobazam 5 mg 06/12/19 10:00 06/14/19 09:31 Onfi - GT 5 mg DAILY [facility] Administration Clonazepam 1.5 mg 06/11/19 22:00 06/14/19 14:48 Klonopin - GT 1.5 mg TID [facility] Administration Famotidine 10 mg 06/11/19 22:00 06/14/19 09:31 Pepcid NGT 10 mg BID [facility] Administration Fluticasone Propionate 2 spray 06/12/19 07:00 06/14/19 06:37 Flonase - NS 2 sprays AM [facility] Administration Heparin Sodium (Porcine) 5,000 unit 06/11/19 14:00 06/14/19 14:47 Heparin - SQ 5,000 unit TID [facility] Administration Propofol 1,000,000 mcg in 100 mls @ 1.197 mls/hr 06/11/19 16:45 06/14/19 12:12 Diprivan - IVPB 0 mcg/kg/min TITR [facility] 0 mls/hr Titration Protocol 5 MCG/KG/MIN Piperacillin Sod/Tazobactam 50 mls @ 100 mls/hr 06/13/19 08:00 06/14/19 09:32 Sod 3.375 gm/ Dextrose IVPB 100 mls/hr Q8H-IV [facility] Administration Protocol Midazolam HCl 100 mg/ Sodium 100 mls @ 4 mls/hr 06/14/19 12:30 06/14/19 12:30 Chloride IVPB 4 mg/hr TITR [facility] 4 mls/hr Administration Protocol 4 MG/HR Dexmedetomidine HCl 200 mcg/ 50 mls @ 2.16 mls/hr 06/14/19 14:00 06/14/19 15:15 Sodium Chloride IVPB 0.2 mcg/kg/hr TITR [facility] 2.16 mls/hr Administration 0.2 MCG/KG/HR Lactated Ringer's 1,000 ml in 1,000 mls @ 75 mls/hr 06/14/19 15:30 Lactated Ringers Solution IV ASDIR [facility] Lactobacillus Acidophilus 1 tab 06/11/19 22:00 06/13/19 21:07 Bacid - GT 1 tab HS [facility] Administration Lamotrigine 200 mg 06/11/19 22:00 06/14/19 09:22 Lamictal - PO 200 mg BID [facility] Administration Magnesium Hydroxide 20 ml 06/11/19 22:00 06/14/19 09:23 Milk Of Magnesia - GT 20 ml BID [facility] Administration Multivitamins/Minerals 15 ml 06/11/19 22:00 06/13/19 21:21 Certavite-Antioxidant Liquid GT 15 ml HS [facility] Administration Mupirocin 1 applic 06/11/19 22:00 06/14/19 09:20 Bactroban Ointment (For Decolonization) - NS 06/16/19 21:59 1 applic BID [facility] Administration Phenobarbital 45 mg 06/11/19 22:00 06/14/19 09:31 Phenobarbital - GT 45 mg BID [facility] Administration Sodium Chloride 2 spray 06/11/19 22:00 06/14/19 10:00 [place] Nasal [place] - NS 2 spray BID [facility] Administration ASSESSMENT/PLAN: 24M PMH CP, epilepsy, herpes encephalitis, GERD, and aspiration pneumonia discharged from [facility] 2 days ago after being treated for sepsis secondary to PNA and flu requiring intubation. Neuro -Patient has hx of CP and epilepsy -Continue home medications: diazepam, clobazam, clonazepam, lamictal, phenobarbital, -Midazolam drip started initially, switched to precedex -Propofol drip and precedex. -Daily sedation vacations Cardiovascular -Pt was noted to have be bradycardic during previous admission on cardiac monitoring -EKG did not show any acute changes. Qtc of 432. -Continous cardiac monitoring Pulmonary -Acute hypoxic respiratory failure -Patient is currently intubated, vent setting: Vt: 350, RR 14, Fio2: 40% PEEP: 5 -Wean trials daily GI -Patient has PEG tube. -Tube feed Promote. -No acute issues, will continue to monitor Renal -Hematuria on UA. Likely a result of trauma from straight cath. -Monitor electrolytes and replete PRN ID -Pt has hx of herpes encephalitis -Continue alcyclovir -Given genta, azithro, and zosyn in ED -Continue zoysn -F/U cultures F:75 ml/hr LR E: Monitor CMP N: Promote Tube Feed Lines: Intubated 06/11/2019. Dispo: We will continue to follow the patient. Thank you for this consultative opportunity. Visit type - Emergency Visit Emergency Visit: Yes ED Registration Date: 06/11/19 Care time: The patient presented to the Emergency Department on the above date and was hospitalized for further evaluation of their emergent condition. - New Patient This patient is new to me today: No - Critical Care Critical Care patient: Yes Total Critical Care Time (in minutes): 45 Critical Care Statement: The care of this patient involved high complexity decision making to prevent further life threatening deterioration of the patient's condition and/or to evaluate & treat vital organ system(s) failure or risk of failure. ATTENDING PHYSICIAN STATEMENT I saw and evaluated the patient. I reviewed the resident's note and discussed the case with the resident. I agree with the resident's findings and plan as documented. SUBJECTIVE: OBJECTIVE: ASSESSMENT AND PLAN:
--- NOTE | 2019-06-14 17:19 | PN ---
Progress Note, Physician History of Present Illness: INTUBATED NO ACUTE DISTRESS TEMPS DOWN AFEBRILE BC + SCN C/W CONTAMINATION SPUTUM C/S PSEUDOMONAS - Current Medication List Current Medications: Active Medications Acyclovir (Zovirax Oral Suspension -) 400 mg GT BID [facility] B[facility]S [facility] Last Admin: 06/14/19 09:32 Dose: 400 mg Albuterol Sulfate (Ventolin 0.083% Nebulizer Soln -) 1 amp NEB Q6H PRN PRN Reason: WHEEZING Albuterol/Ipratropium (Duoneb -) 1 amp NEB RQID [facility] Last Admin: 06/14/19 15:45 Dose: 1 amp Bacitracin (Bacitracin -) 1 applic TP BID [facility] Last Admin: 06/14/19 09:20 Dose: 1 applic Baclofen (Lioresal -) 10 mg GT BID [facility] Last Admin: 06/14/19 09:23 Dose: 10 mg Chlorhexidine Gluconate (Hibiclens For Decolonization -) 1 applic TP HS [facility]S [facility] Last Admin: 06/13/19 21:05 Dose: 1 applic Clobazam (Onfi -) 10 mg GT HS [facility] Last Admin: 06/13/19 21:07 Dose: 10 mg Clobazam (Onfi -) 5 mg GT DAILY [facility] 234 B[facility]S [facility] Last Admin: 06/14/19 09:31 Dose: 5 mg Clonazepam (Klonopin -) 1.5 mg GT TID [facility] 234 B[facility]S [facility] Last Admin: 06/14/19 14:48 Dose: 1.5 mg Famotidine (Pepcid) 10 mg NGT BID [facility] 234 B[facility]S [facility] Last Admin: 06/14/19 09:31 Dose: 10 mg Fluticasone Propionate (Flonase -) 2 spray NS AM [facility] 234 B[facility]S [facility] Last Admin: 06/14/19 06:37 Dose: 2 sprays Heparin Sodium (Porcine) (Heparin -) 5,000 unit SQ TID [facility]S [facility] Last Admin: 06/14/19 14:47 Dose: 5,000 unit Propofol (Diprivan -) 1,000,000 mcg in 100 mls @ 1.197 mls/hr IVPB TITR [facility]; Protocol Last Admin: 06/14/19 16:50 Dose: Not Given Piperacillin Sod/Tazobactam (Sod 3.375 gm/ Dextrose) 50 mls @ 100 mls/hr IVPB Q8H-IV [facility]; Protocol Last Admin: 06/14/19 17:05 Dose: 100 mls/hr Midazolam HCl 100 mg/ Sodium (Chloride) 100 mls @ 4 mls/hr IVPB TITR [facility]; Protocol Last Admin: 06/14/19 12:30 Dose: 4 mg/hr, 4 mls/hr Dexmedetomidine HCl 200 mcg/ (Sodium Chloride) 50 mls @ 2.16 mls/hr IVPB TITR [facility] Last Admin: 06/14/19 15:15 Dose: 0.2 mcg/kg/hr, 2.16 mls/hr Lactated Ringer's (Lactated Ringers Solution) 1,000 ml in 1,000 mls @ 75 mls/ hr IV ASDIR [facility] Last Admin: 06/14/19 15:40 Dose: 75 mls/hr Lactobacillus Acidophilus (Bacid -) 1 tab GT HS [facility] 234 B[facility]S [facility] Last Admin: 06/13/19 21:07 Dose: 1 tab Lamotrigine (Lamictal -) 200 mg PO BID [facility] Last Admin: 06/14/19 09:22 Dose: 200 mg Magnesium Hydroxide (Milk Of Magnesia -) 20 ml GT BID [facility] 234 B[facility]S [facility] Last Admin: 06/14/19 09:23 Dose: 20 ml Multivitamins/Minerals (Certavite-Antioxidant Liquid) 15 ml GT HS [facility] 234 B[facility]S [facility] Last Admin: 06/13/19 21:21 Dose: 15 ml Mupirocin (Bactroban Ointment (For Decolonization) -) 1 applic NS BID [facility] 234 B[facility]S [facility] Stop: 06/16/19 21:59 Last Admin: 06/14/19 09:20 Dose: 1 applic Phenobarbital (Phenobarbital -) 45 mg GT BID [facility] 234 BEDS [facility] Last Admin: 06/14/19 09:31 Dose: 45 mg Sodium Chloride ([place] Nasal [place] -) 2 spray NS BID [facility] 234 B[facility]S [facility] Last Admin: 06/14/19 10:00 Dose: 2 spray - Objective Vital Signs: Vital Signs Temperature 98.4 F 06/14/19 16:00 Pulse Rate 61 06/14/19 16:00 Respiratory Rate 14 06/14/19 16:35 Blood Pressure 106/53 L 06/14/19 16:00 O2 Sat by Pulse Oximetry (%) 99 06/14/19 16:35 Constitutional: Yes: No Distress Cardiovascular: Yes: Regular Rate and Rhythm, S1, S2 Respiratory: Yes: Mechanically Ventilated Gastrointestinal: Yes: Normal Bowel Sounds, Soft. No: Tenderness Labs: CBC, BMP 06/14/19 08:27 06/14/19 08:27 INR, PTT INR 1.13 (0.83-1.09) H 06/11/19 11:10 Assessment/Plan RESP FAILURE PNEUMONIA SPUTUM C/S PSEUDOMONAS +BC SCN C/W CONTAMINATION S/P RECENT INFLUENZA CONTINUE ZOSYN, VENTILATORY SUPPORT
[2019-06-14] MEDS: ACETAMINOPHEN 650 MG/20.3 ML ORAL SOLUTION (CUPS) GT PRN (18:18)
[2019-06-14] MEDS: MULTIVIT-MINERALS ORAL LIQUID GT SCH (22:15)
[2019-06-14] MEDS: CHLORHEXIDINE GLUCONATE 4% CLEANSER FOR DECOLONIZATION TP SCH (22:16)
[2019-06-14] MEDS: LACTOBACILLUS ACIDOPHILUS 1 TABLET GT SCH (22:16)
[2019-06-15] MEDS ORDERED: DEXTROSE 5%-WATER - 50 ML IVPB ONE ×4 (01:01→21:06)
[2019-06-15] MEDS ORDERED: PIPERACILLIN/TAZOBACTAM 3.375 GM VIAL IVPB ONE ×4 (01:01→21:06)
[2019-06-15] MEDS: PIPERACILLIN/TAZOB 3.375 GM 3.375 GM in DEXTROSE 5%-WATER - 50 ML IVPB SCH ×3 (01:20→17:18)
[2019-06-15] MEDS ORDERED: MIDAZOLAM IN 0.9 % SOD.CHLORID 1 MG/1 ML PLAST..BAG ONE (06:00)
[2019-06-15] MEDS: HEPARIN NA (PORCINE) 5,000 UNITS/ML 1ML VIAL SQ SCH ×3 (06:04→21:18)
[2019-06-15] MEDS: MIDAZOLAM 100 MG in SODIUM CHLORIDE 100 ML IVPB SCH ×2 (06:04→13:01)
[2019-06-15] MEDS: clonazePAM 0.5 MG TABLET GT SCH ×3 (06:04→21:18)
[2019-06-15] MEDS: FLUTICASONE PROP 0.05% 16 GM NASAL SPRAY NS SCH (06:15)
[2019-06-15 06:30] LABS: BASO % 0.4 % (0-2.0); EOS % 0.8 % (0-4.5); HEMATOCRIT 32.4 % (35.4-49); HEMOGLOBIN 11.3 GM/dL (11.7-16.9); LYMPH % 30.6 % (8-40); MCH 34.6 pg (25.7-33.7); MCHC 34.9 g/dl (32.0-35.9); MEAN CELL VOLUME 99.1 fl (80-96); NEUT % 52.2 % (42.8-82.8); PLATELET COUNT 274 K/MM3 (134-434); RBC 3.27 M/mm3 (4.00-5.60); RDW 13.8 % (11.9-15.9); WHITE BLOOD COUNT 6.5 K/mm3 (4.0-10.0)
[2019-06-15 06:54] LABS: ALBUMIN 2.6 g/dl (3.4-5.0); BILIRUBIN,TOTAL 0.4 mg/dL (0.2-1); BLOOD UREA NITROGEN 5.4 mg/dL (7-18); CALCIUM 8.4 mg/dL (8.5-10.1); CREATININE 0.6 mg/dL (0.55-1.3); MAGNESIUM 1.9 mg/dL (1.8-2.4); PHOSPHOROUS 3.8 mg/dL (2.5-4.9); POTASSIUM 4.1 mmol/L (3.5-5.1); TOT PROT 6.6 g/dl (6.4-8.2)
[2019-06-15] MEDS: ALBUTEROL SO4 2.5/IPRATROPIUM 0.5 INH SOL 3 ML VIAL.NEB. NEB SCH ×4 (08:00→20:20)
[2019-06-15] MEDS ORDERED: PT OWN MED DRAWER 7, Y5N ONE ×2 (08:49→21:06)
[2019-06-15] MEDS: cloBAZam 10 MG TABLET GT SCH ×2 (09:05→21:18)
[2019-06-15] MEDS: MUPIROCIN 2% TOPICAL OINTMENT FOR DECOLONIZATION NS SCH ×2 (09:17→21:19)
[2019-06-15] MEDS: lamoTRIgine 100 MG TABLET PO SCH ×2 (09:17→22:40)
[2019-06-15] MEDS: BACITRACIN 15 GM TUBE TOPICAL OINTMENT TP SCH ×2 (09:17→21:21)
[2019-06-15] MEDS: MAGNESIUM HYDROX 2400MG/30ML ORAL SUSPENSION 30 ML CUP GT SCH ×2 (09:18→21:19)
[2019-06-15] MEDS: BACLOFEN 10 MG TABLET (FP) GT SCH ×2 (09:18→22:40)
[2019-06-15] MEDS: SODIUM CHLORIDE NASAL SPRAY 44 ML BOTTLE NS SCH ×2 (09:19→21:20)
[2019-06-15] MEDS: FAMOTIDINE 40 MG/5 ML ORAL SUSPENSION NGT SCH ×2 (09:20→22:40)
[2019-06-15] MEDS: ACYCLOVIR 200 MG/5 ML LIQUID GT SCH ×2 (09:20→22:40)
--- NOTE | 2019-06-15 12:07 | PN ---
Teaching Attending Note Name of Resident: Marsha Sage ATTENDING PHYSICIAN STATEMENT I saw and evaluated the patient. I reviewed the resident's note and discussed the case with the resident. I agree with the resident's findings and plan as documented. SUBJECTIVE: Pt seen and examined in the ICU. Remains intubated, sedated. Placed on CPAP/PS with tachypnea. Less secretions today. OBJECTIVE: Vital Signs Period Temp Pulse Resp BP Sys/Linares Pulse Ox Last 24 Hr 98.4 F-100.8 F 44-61 14-22 86-106/48-59 96-100 Intake & Output 06/12/19 06/13/19 06/14/19 06/15/19 23:59 23:59 23:59 23:59 Intake Total 2074.8 1999.8 1660 1780.4 Output Total 1850 3800 3300 400 Balance 224.8 -1800.2 -1640 1380.4 Weight 41.3 kg 43.091 kg 43.363 kg 39.599 kg Gen: intubated, sedated Heart: RRR Lung: scattered rhonchi Abd: soft, nontender Ext: no edema CBC, BMP 06/15/19 06:00 06/15/19 06:00 Active Medications Acetaminophen (Tylenol Oral Solution -) 650 mg GT Q4H PRN PRN Reason: FEVER Last Admin: 06/14/19 18:18 Dose: 650 mg Acyclovir (Zovirax Oral Suspension -) 400 mg GT BID [facility] Last Admin: 06/15/19 09:20 Dose: 400 mg Albuterol Sulfate (Ventolin 0.083% Nebulizer Soln -) 1 amp NEB Q6H PRN PRN Reason: WHEEZING Albuterol/Ipratropium (Duoneb -) 1 amp NEB RQID [facility] Last Admin: 06/15/19 08:00 Dose: 1 amp Bacitracin (Bacitracin -) 1 applic TP BID [facility] Last Admin: 06/15/19 09:17 Dose: 1 applic Baclofen (Lioresal -) 10 mg GT BID [facility] Last Admin: 06/15/19 09:18 Dose: 10 mg Chlorhexidine Gluconate (Hibiclens For Decolonization -) 1 applic TP HS [facility] Last Admin: 06/14/19 22:16 Dose: 1 applic Clobazam (Onfi -) 10 mg GT HS [facility] Last Admin: 06/14/19 22:16 Dose: 10 mg Clobazam (Onfi -) 5 mg GT DAILY [facility] Last Admin: 06/15/19 09:05 Dose: 5 mg Clonazepam (Klonopin -) 1.5 mg GT TID [facility] Last Admin: 06/15/19 06:04 Dose: 1.5 mg Famotidine (Pepcid) 10 mg NGT BID [facility] Last Admin: 06/15/19 09:20 Dose: 10 mg Fluticasone Propionate (Flonase -) 2 spray NS AM [facility] Last Admin: 06/15/19 06:15 Dose: 2 sprays Heparin Sodium (Porcine) (Heparin -) 5,000 unit SQ TID [facility] Last Admin: 06/15/19 06:04 Dose: 5,000 unit Propofol (Diprivan -) 1,000,000 mcg in 100 mls @ 1.197 mls/hr IVPB TITR [facility]; Protocol Last Admin: 06/14/19 16:50 Dose: Not Given Piperacillin Sod/Tazobactam (Sod 3.375 gm/ Dextrose) 50 mls @ 100 mls/hr IVPB Q8H-IV [facility]; Protocol Last Admin: 06/15/19 09:14 Dose: 100 mls/hr Midazolam HCl 100 mg/ Sodium (Chloride) 100 mls @ 4 mls/hr IVPB TITR [facility]; Protocol Last Admin: 06/15/19 06:04 Dose: 5 mg/hr, 5 mls/hr Dexmedetomidine HCl 200 mcg/ (Sodium Chloride) 50 mls @ 2.16 mls/hr IVPB TITR [facility] Last Infusion: 06/15/19 00:00 Dose: 0.2 mcg/kg/hr, 2.16 mls/hr Lactated Ringer's (Lactated Ringers Solution) 1,000 ml in 1,000 mls @ 75 mls/ hr IV ASDIR [facility] Last Admin: 06/14/19 15:40 Dose: 75 mls/hr Lactobacillus Acidophilus (Bacid -) 1 tab GT HS [facility] Last Admin: 06/14/19 22:16 Dose: 1 tab Lamotrigine (Lamictal -) 200 mg PO BID [facility] Last Admin: 06/15/19 09:17 Dose: 200 mg Magnesium Hydroxide (Milk Of Magnesia -) 20 ml GT BID [facility] Last Admin: 06/15/19 09:18 Dose: 20 ml Multivitamins/Minerals (Certavite-Antioxidant Liquid) 15 ml GT HS [facility] Last Admin: 06/14/19 22:15 Dose: 15 ml Mupirocin (Bactroban Ointment (For Decolonization) -) 1 applic NS BID [facility] Stop: 06/16/19 21:59 Last Admin: 06/15/19 09:17 Dose: 1 applic Phenobarbital (Phenobarbital -) 45 mg GT BID [facility] Last Admin: 06/14/19 22:15 Dose: 45 mg Sodium Chloride ([place] Nasal [place] -) 2 spray NS BID [facility] Last Admin: 06/15/19 09:19 Dose: 2 spray ASSESSMENT AND PLAN: Acute Hypoxic Respiratory Failure Pneumonia likely Aspiration Cerebral Palsy Mental Retardation Seizure Disorder GERD - continue antibiotics - inhaled bronchodilators - taper FiO2 to keep SpO2 >90% - monitor urine output, creatinine - replete lytes - enteral feeds - spontaneous breathing trials as tolerated when secretions lessen - DVT/GI prophylaxis - continue ICU monitoring critical care time spent in reviewing chart, evaluating patient and formulating plan 35 min
[2019-06-15] MEDS: PHENobarbital 30 MG TABLET GT SCH (12:43)
[2019-06-15] MEDS: PHENobarbital 20 MG/5 ML UNIT-DOSE CUP PO SCH ×2 (13:01→21:20)
--- NOTE | 2019-06-15 14:49 | PN ---
Physical Exam: SUBJECTIVE: Patient seen and examined today. No acute events overnight, intubated and sedated on precedex. OBJECTIVE: Vital Signs Period Temp Pulse Resp BP Sys/Linares Pulse Ox Last 24 Hr 98.4 F-100.8 F 44-61 14-22 86-106/48-59 96-100 GENERAL: The patient is awake, alert, and fully oriented, in no acute distress. NECK: supple. LUNGS: Breath sounds reduced at bases, congestion improved, no wheezing appreciated. HEART: Regular rate and rhythm, S1, S2 without murmur, rub or gallop. ABDOMEN: Soft, nontender, nondistended. EXTREMITIES: 2+ pulses, warm, well-perfused, no edema. NEUROLOGICAL: Cranial nerves II through XII grossly intact. Normal speech, gait not observed. SKIN: Warm, dry, normal turgor, no rashes or lesions noted Laboratory Results - last 24 hr 06/15/19 06/15/19 06:00 06:00 WBC 6.5 RBC 3.27 L Hgb 11.3 L Hct 32.4 L MCV 99.1 H MCH 34.6 H MCHC 34.9 RDW 13.8 Plt Count 274 MPV 9.0 Absolute Neuts (auto) 3.4 Neutrophils % 52.2 D Lymphocytes % 30.6 D Monocytes % 16.0 H Eosinophils % 0.8 Basophils % 0.4 Nucleated RBC % 0 Sodium 140 Potassium 4.1 Chloride 110 H Carbon Dioxide 24 Anion Gap 6 L BUN 5.4 L Creatinine 0.6 Est GFR (CKD-EPI)AfAm 164.25 Est GFR (CKD-EPI)NonAf 141.72 Random Glucose 112 H Calcium 8.4 L Phosphorus 3.8 Magnesium 1.9 Total Bilirubin 0.4 AST 15 ALT 42 Alkaline Phosphatase 153 H Total Protein 6.6 Albumin 2.6 L Active Medications Generic Name Dose Route Start Last Admin Trade Name Freq PRN Reason Stop Dose Admin Acetaminophen 650 mg 06/14/19 17:58 06/14/19 18:18 Tylenol Oral Solution - GT 650 mg Q4H PRN Administration FEVER Acyclovir 400 mg 06/11/19 22:00 06/15/19 09:20 Zovirax Oral Suspension - GT 400 mg BID JORGE Administration Albuterol Sulfate 1 amp 06/13/19 14:31 Ventolin 0.083% Nebulizer Soln - NEB Q6H PRN WHEEZING Albuterol/Ipratropium 1 amp 06/12/19 08:00 06/15/19 12:53 Duoneb - NEB 1 amp RQID JORGE Administration Bacitracin 1 applic 06/11/19 22:00 06/15/19 09:17 Bacitracin - TP 1 applic BID JORGE Administration Baclofen 10 mg 06/11/19 22:00 06/15/19 09:18 Lioresal - GT 10 mg BID JORGE Administration Chlorhexidine Gluconate 1 applic 06/11/19 22:00 06/14/19 22:16 Hibiclens For Decolonization - TP 1 applic HS JORGE Administration Clobazam 10 mg 06/11/19 22:00 06/14/19 22:16 Onfi - GT 10 mg HS JORGE Administration Clobazam 5 mg 06/12/19 10:00 06/15/19 09:05 Onfi - GT 5 mg DAILY JORGE Administration Clonazepam 1.5 mg 06/11/19 22:00 06/15/19 06:04 Klonopin - GT 1.5 mg TID JORGE Administration Famotidine 10 mg 06/11/19 22:00 06/15/19 09:20 Pepcid NGT 10 mg BID JORGE Administration Fluticasone Propionate 2 spray 06/12/19 07:00 06/15/19 06:15 Flonase - NS 2 sprays AM JORGE Administration Heparin Sodium (Porcine) 5,000 unit 06/11/19 14:00 06/15/19 06:04 Heparin - SQ 5,000 unit TID JORGE Administration Propofol 1,000,000 mcg in 100 mls @ 1.197 mls/hr 06/11/19 16:45 06/14/19 16: 50 Diprivan - IVPB Not Given TITR JORGE Protocol 5 MCG/KG/MIN Piperacillin Sod/Tazobactam 50 mls @ 100 mls/hr 06/13/19 08:00 06/15/19 09:14 Sod 3.375 gm/ Dextrose IVPB 100 mls/hr Q8H-IV JORGE Administration Protocol Midazolam HCl 100 mg/ Sodium 100 mls @ 4 mls/hr 06/14/19 12:30 06/15/19 13:01 Chloride IVPB Not Given TITR JORGE Protocol 4 MG/HR Dexmedetomidine HCl 200 mcg/ 50 mls @ 2.16 mls/hr 06/14/19 14:00 06/15/19 00: 00 Sodium Chloride IVPB 0.2 mcg/kg/hr TITR JORGE 2.16 mls/hr Infusion 0.2 MCG/KG/HR Lactated Ringer's 1,000 ml in 1,000 mls @ 75 mls/hr 06/14/19 15:30 06/14/19 15:40 Lactated Ringers Solution IV 75 mls/hr ASDIR JORGE Administration Lactobacillus Acidophilus 1 tab 06/11/19 22:00 06/14/19 22:16 Bacid - GT 1 tab HS JORGE Administration Lamotrigine 200 mg 06/11/19 22:00 06/15/19 09:17 Lamictal - PO 200 mg BID JORGE Administration Magnesium Hydroxide 20 ml 06/11/19 22:00 06/15/19 09:18 Milk Of Magnesia - GT 20 ml BID JORGE Administration Multivitamins/Minerals 15 ml 06/11/19 22:00 06/14/19 22:15 Certavite-Antioxidant Liquid GT 15 ml HS JORGE Administration Mupirocin 1 applic 06/11/19 22:00 06/15/19 09:17 Bactroban Ointment (For Decolonization) - NS 06/16/19 21:59 1 applic BID JORGE Administration Phenobarbital 45 mg 06/15/19 13:00 06/15/19 13:01 Phenobarbital Liquid - PO Not Given BID JORGE Sodium Chloride 2 spray 06/11/19 22:00 06/15/19 09:19 [place] Nasal [place] - NS 2 spray BID JORGE Administration ASSESSMENT/PLAN: Images: - CXR showing ? left side infiltrate vs atelectasis in retrocardiac area - CT chest- residual L>R patchy ground glass opacities in Lt and to lesser extent rt lung may reperesent infiltrates, moderately distended colon with air. This is a 24 y/o M from [place] with hx of CP, epilepsy, herpes encephalitis, GERD, and aspiration pneumonia recently discharged from [facility] 2 days ago after being treated for sepsis 2/2 PNA and flu requiring intubation and ICU admission. Pt presenting with SOB and new oxygen requirements. Pt satting 98% on 4LNC with profuse coughing. Per chart from [place], pt O2 sat was at 85% on RA, but after 4L O2 it improved to 93%, with a pulse of 125, RR of 60/min. #Acute Hypoxic Respiratory failure with sepsis 2/2 likely aspiration PNA - CXR today showing no change of infiltrate with intubation tube in correct site - pt has positive sputum cx pseudomonas as of 06/02 - ICU team monitoring - continue zosyn day 3 per ID - keep SaO2 >90% on vent settings - MRSA nares negative - ID (Dr Harrison) on case - pt recently finished tamiflu regimen - wbc- 18.8 initially -> 9-> 6.5 today, off steroids. - BC showing gram positive cocci in clusters will wait for organism as well as C /S, likely skin osiris - UA legionella, strep PNA negative - Chest CT ordered w/o contrast to assess ? infiltrate #Hypokalemia - resolved can stop the addition of K to fluids. - NS with 20 KCL switched to LR 75 cc/hr #Seizure disorder - continue anti-seizure regimen - Clonazepam, Lamotrigene, Phenobarbital #Hx of herpes Encephalitis - maintained on Acyclovir # Recent elevation in transaminases ? sepsis related/Abx related US Abdo - no acute pathology. wnl now DVT: Hep 5K TID Visit type - Emergency Visit Emergency Visit: Yes ED Registration Date: 06/11/19 Care time: The patient presented to the Emergency Department on the above date and was hospitalized for further evaluation of their emergent condition. - New Patient This patient is new to me today: No - Critical Care Critical Care patient: Yes Total Critical Care Time (in minutes): 40 Critical Care Statement: The care of this patient involved high complexity decision making to prevent further life threatening deterioration of the patient 's condition and/or to evaluate & treat vital organ system(s) failure or risk of failure. - Discharge Referral Referred to [facility] Med P.C.: No ATTENDING PHYSICIAN STATEMENT I saw and evaluated the patient. I reviewed the resident's note and discussed the case with the resident. I agree with the resident's findings and plan as documented. SUBJECTIVE: OBJECTIVE: ASSESSMENT AND PLAN:
[2019-06-15] MEDS: DEXMEDETOMIDINE HCL 200 MCG in SODIUM CHLORIDE 48 ML IVPB SCH (15:39)
[2019-06-15] MEDS: LACTATED RINGERS SOLUTION 1,000 ML/1,000 ML INFUS.BAG IV SCH (15:58)
--- NOTE | 2019-06-15 16:09 | PN ---
Physical Exam: SUBJECTIVE: Patient seen and examined. No acute event overnight. low grade temp overnight. OBJECTIVE: Vital Signs Period Temp Pulse Resp BP Sys/Linares Pulse Ox Last 24 Hr 98.6 F-100.8 F 44-62 13-22 86-101/48-59 96-100 ENERAL: Sedated, intubated. HEAD: Normocephalic EARS, NOSE, THROAT: Copious amounts of secretions. LUNGS: Rhonchi present bilaterally. HEART: Regular rate and rhythm, normal S1 and S2 without murmur, rub or gallop. ABDOMEN: PEG tube present, no erythema around site. Soft, nontender, not distended, normoactive bowel sounds, no guarding, no rebound, no masses. . MUSCULOSKELETAL:Patient currently contracted. UPPER EXTREMITIES: 2+ pulses, warm, well-perfused. No cyanosis. No clubbing. Cap refill <2 seconds. No peripheral edema. LOWER EXTREMITIES: 2+ pulses, warm, well-perfused. No calf tenderness. No peripheral edema. NEUROLOGICAL: Unable to assess. SKIN: Maculopapular rash on chest. Laboratory Results - last 24 hr 06/15/19 06/15/19 06:00 06:00 WBC 6.5 RBC 3.27 L Hgb 11.3 L Hct 32.4 L MCV 99.1 H MCH 34.6 H MCHC 34.9 RDW 13.8 Plt Count 274 MPV 9.0 Absolute Neuts (auto) 3.4 Neutrophils % 52.2 D Lymphocytes % 30.6 D Monocytes % 16.0 H Eosinophils % 0.8 Basophils % 0.4 Nucleated RBC % 0 Sodium 140 Potassium 4.1 Chloride 110 H Carbon Dioxide 24 Anion Gap 6 L BUN 5.4 L Creatinine 0.6 Est GFR (CKD-EPI)AfAm 164.25 Est GFR (CKD-EPI)NonAf 141.72 Random Glucose 112 H Calcium 8.4 L Phosphorus 3.8 Magnesium 1.9 Total Bilirubin 0.4 AST 15 ALT 42 Alkaline Phosphatase 153 H Total Protein 6.6 Albumin 2.6 L Active Medications Generic Name Dose Route Start Last Admin Trade Name Freq PRN Reason Stop Dose Admin Acetaminophen 650 mg 06/14/19 17:58 06/14/19 18:18 Tylenol Oral Solution - GT 650 mg Q4H PRN Administration FEVER Acyclovir 400 mg 06/11/19 22:00 06/15/19 09:20 Zovirax Oral Suspension - GT 400 mg BID JORGE Administration Albuterol Sulfate 1 amp 06/13/19 14:31 Ventolin 0.083% Nebulizer Soln - NEB Q6H PRN WHEEZING Albuterol/Ipratropium 1 amp 06/12/19 08:00 06/15/19 12:53 Duoneb - NEB 1 amp RQID JORGE Administration Bacitracin 1 applic 06/11/19 22:00 06/15/19 09:17 Bacitracin - TP 1 applic BID JORGE Administration Baclofen 10 mg 06/11/19 22:00 06/15/19 09:18 Lioresal - GT 10 mg BID JORGE Administration Chlorhexidine Gluconate 1 applic 06/11/19 22:00 06/14/19 22:16 Hibiclens For Decolonization - TP 1 applic HS JORGE Administration Clobazam 10 mg 06/11/19 22:00 06/14/19 22:16 Onfi - GT 10 mg HS JORGE Administration Clobazam 5 mg 06/12/19 10:00 06/15/19 09:05 Onfi - GT 5 mg DAILY JORGE Administration Clonazepam 1.5 mg 06/11/19 22:00 06/15/19 15:38 Klonopin - GT 1.5 mg TID JORGE Administration Famotidine 10 mg 06/11/19 22:00 06/15/19 09:20 Pepcid NGT 10 mg BID JORGE Administration Fluticasone Propionate 2 spray 06/12/19 07:00 06/15/19 06:15 Flonase - NS 2 sprays AM JORGE Administration Heparin Sodium (Porcine) 5,000 unit 06/11/19 14:00 06/15/19 15:38 Heparin - SQ 5,000 unit TID JORGE Administration Propofol 1,000,000 mcg in 100 mls @ 1.197 mls/hr 06/11/19 16:45 06/14/19 16:50 Diprivan - IVPB Not Given TITR JORGE Protocol 5 MCG/KG/MIN Piperacillin Sod/Tazobactam 50 mls @ 100 mls/hr 06/13/19 08:00 06/15/19 09:14 Sod 3.375 gm/ Dextrose IVPB 100 mls/hr Q8H-IV JORGE Administration Protocol Midazolam HCl 100 mg/ Sodium 100 mls @ 4 mls/hr 06/14/19 12:30 06/15/19 13:01 Chloride IVPB Not Given TITR JORGE Protocol 4 MG/HR Dexmedetomidine HCl 200 mcg/ 50 mls @ 2.16 mls/hr 06/14/19 14:00 06/15/19 15:39 Sodium Chloride IVPB Not Given TITR JORGE 0.2 MCG/KG/HR Lactated Ringer's 1,000 ml in 1,000 mls @ 75 mls/hr 06/14/19 15:30 06/15/19 15:58 Lactated Ringers Solution IV 75 mls/hr ASDIR JORGE Administration Lactobacillus Acidophilus 1 tab 06/11/19 22:00 06/14/19 22:16 Bacid - GT 1 tab HS JORGE Administration Lamotrigine 200 mg 06/11/19 22:00 06/15/19 09:17 Lamictal - PO 200 mg BID JORGE Administration Magnesium Hydroxide 20 ml 06/11/19 22:00 06/15/19 09:18 Milk Of Magnesia - GT 20 ml BID JORGE Administration Multivitamins/Minerals 15 ml 06/11/19 22:00 06/14/19 22:15 Certavite-Antioxidant Liquid GT 15 ml HS JORGE Administration Mupirocin 1 applic 06/11/19 22:00 06/15/19 09:17 Bactroban Ointment (For Decolonization) - NS 06/16/19 21:59 1 applic BID JORGE Administration Phenobarbital 45 mg 06/15/19 13:00 06/15/19 13:01 Phenobarbital Liquid - PO Not Given BID JORGE Sodium Chloride 2 spray 06/11/19 22:00 06/15/19 09:19 [place] Nasal [place] - NS 2 spray BID JORGE Administration ASSESSMENT/PLAN: 24M PMH CP, epilepsy, herpes encephalitis, GERD, and aspiration pneumonia discharged from [facility] after being treated for sepsis secondary to PNA and flu requiring intubation. Neuro -Patient has hx of CP and epilepsy -Continue home medications: diazepam, clobazam, clonazepam, lamictal, phenobarbital, -Midazolam and precedex -Daily sedation vacations Cardiovascular -Pt was noted to have be bradycardic during previous admission on cardiac monitoring -EKG did not show any acute changes. Qtc of 432. -Continous cardiac monitoring Pulmonary -Acute hypoxic respiratory failure -Patient is currently intubated -ON SIMV will switch to AC at night with vent setting: Vt: 350, RR 14, Fio2: 40% PEEP: 5 -Wean trials daily GI -Patient has PEG tube. -Tube feed Promote. -No acute issues, will continue to monitor Renal -Hematuria on UA. Likely a result of trauma from straight cath. -Monitor electrolytes and replete PRN ID -Pt has hx of herpes encephalitis -Continue alcyclovir -Given genta, azithro, and zosyn in ED -Continue zoysn -F/U cultures F:75 ml/hr LR E: Monitor CMP N: Promote Tube Feed Lines: Intubated 06/11/2019. Dispo: We will continue to follow the patient. Visit type - Emergency Visit Emergency Visit: Yes ED Registration Date: 06/11/19 Care time: The patient presented to the Emergency Department on the above date and was hospitalized for further evaluation of their emergent condition. - New Patient This patient is new to me today: Yes Date on this admission: 06/15/19 - Critical Care Critical Care patient: Yes Total Critical Care Time (in minutes): 35 Critical Care Statement: The care of this patient involved high complexity decision making to prevent further life threatening deterioration of the patient's condition and/or to evaluate & treat vital organ system(s) failure or risk of failure. ATTENDING PHYSICIAN STATEMENT I saw and evaluated the patient. I reviewed the resident's note and discussed the case with the resident. I agree with the resident's findings and plan as documented. SUBJECTIVE: OBJECTIVE: ASSESSMENT AND PLAN:
--- NOTE | 2019-06-15 19:51 | PN ---
Progress Note, Physician History of Present Illness: INTUBATED NO ACUTE DISTRESS TEMPS DOWN AFEBRILE BC + SCN C/W CONTAMINATION SPUTUM C/S PSEUDOMONAS - Current Medication List Current Medications: Active Medications Acetaminophen (Tylenol Oral Solution -) 650 mg GT Q4H PRN PRN Reason: FEVER Last Admin: 06/14/19 18:18 Dose: 650 mg Acyclovir (Zovirax Oral Suspension -) 400 mg GT BID [facility] Last Admin: 06/15/19 09:20 Dose: 400 mg Albuterol Sulfate (Ventolin 0.083% Nebulizer Soln -) 1 amp NEB Q6H PRN PRN Reason: WHEEZING Albuterol/Ipratropium (Duoneb -) 1 amp NEB RQID [facility] Last Admin: 06/15/19 16:00 Dose: 1 amp Bacitracin (Bacitracin -) 1 applic TP BID [facility] Last Admin: 06/15/19 09:17 Dose: 1 applic Baclofen (Lioresal -) 10 mg GT BID [facility] Last Admin: 06/15/19 09:18 Dose: 10 mg Chlorhexidine Gluconate (Hibiclens For Decolonization -) 1 applic TP HS [facility] Last Admin: 06/14/19 22:16 Dose: 1 applic Clobazam (Onfi -) 10 mg GT HS [facility] Last Admin: 06/14/19 22:16 Dose: 10 mg Clobazam (Onfi -) 5 mg GT DAILY [facility] Last Admin: 06/15/19 09:05 Dose: 5 mg Clonazepam (Klonopin -) 1.5 mg GT TID [facility] Last Admin: 06/15/19 15:38 Dose: 1.5 mg Famotidine (Pepcid) 10 mg NGT BID [facility] Last Admin: 06/15/19 09:20 Dose: 10 mg Fluticasone Propionate (Flonase -) 2 spray NS AM [facility] Last Admin: 06/15/19 06:15 Dose: 2 sprays Heparin Sodium (Porcine) (Heparin -) 5,000 unit SQ TID [facility] Last Admin: 06/15/19 15:38 Dose: 5,000 unit Propofol (Diprivan -) 1,000,000 mcg in 100 mls @ 1.197 mls/hr IVPB TITR JORGE; Protocol Last Admin: 06/14/19 16:50 Dose: Not Given Piperacillin Sod/Tazobactam (Sod 3.375 gm/ Dextrose) 50 mls @ 100 mls/hr IVPB Q8H-IV JORGE; Protocol Last Admin: 06/15/19 17:18 Dose: 100 mls/hr Midazolam HCl 100 mg/ Sodium (Chloride) 100 mls @ 4 mls/hr IVPB TITR JORGE; Protocol Last Admin: 06/15/19 13:01 Dose: Not Given Dexmedetomidine HCl 200 mcg/ (Sodium Chloride) 50 mls @ 2.16 mls/hr IVPB TITR JORGE Last Admin: 06/15/19 15:39 Dose: Not Given Lactated Ringer's (Lactated Ringers Solution) 1,000 ml in 1,000 mls @ 75 mls/ hr IV ASDIR JORGE Last Admin: 06/15/19 15:58 Dose: 75 mls/hr Lactobacillus Acidophilus (Bacid -) 1 tab GT HS [facility] Last Admin: 06/14/19 22:16 Dose: 1 tab Lamotrigine (Lamictal -) 200 mg PO BID [facility] Last Admin: 06/15/19 09:17 Dose: 200 mg Magnesium Hydroxide (Milk Of Magnesia -) 20 ml GT BID [facility] Last Admin: 06/15/19 09:18 Dose: 20 ml Multivitamins/Minerals (Certavite-Antioxidant Liquid) 15 ml GT HS [facility] Last Admin: 06/14/19 22:15 Dose: 15 ml Mupirocin (Bactroban Ointment (For Decolonization) -) 1 applic NS BID [facility] Stop: 06/16/19 21:59 Last Admin: 06/15/19 09:17 Dose: 1 applic Phenobarbital (Phenobarbital Liquid -) 45 mg PO BID [facility] Last Admin: 06/15/19 13:01 Dose: Not Given Sodium Chloride ([place] Nasal [place] -) 2 spray NS BID [facility] Last Admin: 06/15/19 09:19 Dose: 2 spray - Objective Vital Signs: Vital Signs Temperature 100.0 F H 06/15/19 14:00 Pulse Rate 55 L 06/15/19 18:00 Respiratory Rate 19 06/15/19 18:00 Blood Pressure 92/50 L 06/15/19 18:00 O2 Sat by Pulse Oximetry (%) 98 06/15/19 12:58 Constitutional: Yes: No Distress Eyes: Yes: Conjunctiva Clear Cardiovascular: Yes: Regular Rate and Rhythm, S1, S2 Respiratory: Yes: Mechanically Ventilated Gastrointestinal: Yes: Normal Bowel Sounds, Soft. No: Tenderness Labs: CBC, BMP 06/15/19 06:00 06/15/19 06:00 INR, PTT INR 1.13 (0.83-1.09) H 06/11/19 11:10 Assessment/Plan RESP FAILURE PNEUMONIA SPUTUM C/S PSEUDOMONAS +BC SCN C/W CONTAMINATION S/P RECENT INFLUENZA CONTINUE ZOSYN, VENTILATORY SUPPORT
[2019-06-15] MEDS: PROPOFOL 1,000,000 MCG/100 ML VIAL IVPB SCH (20:43)
[2019-06-15] MEDS: LACTOBACILLUS ACIDOPHILUS 1 TABLET GT SCH (21:18)
[2019-06-15] MEDS: CHLORHEXIDINE GLUCONATE 4% CLEANSER FOR DECOLONIZATION TP SCH (21:19)
[2019-06-15] MEDS: MULTIVIT-MINERALS ORAL LIQUID GT SCH (22:40)
[2019-06-16] MEDS ORDERED: MIDAZOLAM IN 0.9 % SOD.CHLORID 1 MG/1 ML PLAST..BAG ONE (02:03)
[2019-06-16] MEDS ORDERED: DEXTROSE 5%-WATER - 50 ML IVPB ONE ×4 (02:04→21:20)
[2019-06-16] MEDS ORDERED: PIPERACILLIN/TAZOBACTAM 3.375 GM VIAL IVPB ONE ×4 (02:04→21:20)
[2019-06-16] MEDS: PIPERACILLIN/TAZOB 3.375 GM 3.375 GM in DEXTROSE 5%-WATER - 50 ML IVPB SCH ×3 (02:34→17:25)
[2019-06-16] MEDS ORDERED: PT OWN MED DRAWER 7, Y5N ONE ×3 (03:00→21:20)
[2019-06-16] MEDS: ACETAMINOPHEN 650 MG/20.3 ML ORAL SOLUTION (CUPS) GT PRN ×2 (03:06→20:09)
[2019-06-16] MEDS: HEPARIN NA (PORCINE) 5,000 UNITS/ML 1ML VIAL SQ SCH ×3 (05:43→21:32)
[2019-06-16] MEDS: clonazePAM 0.5 MG TABLET GT SCH ×3 (05:44→21:32)
[2019-06-16 06:36] LABS: BASO % 0.3 % (0-2.0); EOS % 0.3 % (0-4.5); HEMATOCRIT 32.8 % (35.4-49); HEMOGLOBIN 11.4 GM/dL (11.7-16.9); LYMPH % 25.4 % (8-40); MCH 34.4 pg (25.7-33.7); MCHC 34.7 g/dl (32.0-35.9); MEAN CELL VOLUME 99.2 fl (80-96); MONO % 12.3 % (3.8-10.2); NEUT % 61.7 % (42.8-82.8); PLATELET COUNT 307 K/MM3 (134-434); RBC 3.31 M/mm3 (4.00-5.60); RDW 13.7 % (11.9-15.9); WHITE BLOOD COUNT 9.2 K/mm3 (4.0-10.0)
--- NOTE | 2019-06-16 07:32 | PN ---
Physical Exam: SUBJECTIVE: Patient seen and examined NAEON. Patient successfully extubated to nasal cannula, but desatted to high 70s so placed on nonrebreather at 12L. Spiking fevers so re-culturing. OBJECTIVE: Vital Signs Period Temp Pulse Resp BP Sys/Linares Pulse Ox Last 24 Hr 98.4 F-100.3 F 46-77 13-20 87-111/40-62 96-100 GENERAL: The patient is awake, alert, in no acute distress. HEAD: Normal with no signs of trauma. EYES: PERRL, extraocular movements intact, sclera anicteric, conjunctiva clear ENT: Ears normal, nares patent, oropharynx clear without exudates NECK: Trachea midline, full range of motion, supple LUNGS: Coarse bilaterally HEART: tachycardic, S1, S2 without murmur, rub or gallop. ABDOMEN: Soft, nontender, nondistended, normoactive bowel sounds EXTREMITIES: 2+ pulses, warm, well-perfused, diffusely contracted NEUROLOGICAL: Smiling and blinking, moving all limbs spontaneously SKIN: Warm, dry Laboratory Results - last 24 hr 06/16/19 05:50 WBC 9.2 RBC 3.31 L Hgb 11.4 L Hct 32.8 L MCV 99.2 H MCH 34.4 H MCHC 34.7 RDW 13.7 Plt Count 307 MPV 9.0 Absolute Neuts (auto) 5.7 Neutrophils % 61.7 Lymphocytes % 25.4 Monocytes % 12.3 H Eosinophils % 0.3 Basophils % 0.3 Nucleated RBC % 0 Active Medications Generic Name Dose Route Start Last Admin Trade Name Freq PRN Reason Stop Dose Admin Acetaminophen 650 mg 06/14/19 17:58 06/16/19 03:06 Tylenol Oral Solution - GT 650 mg Q4H PRN Administration FEVER Acyclovir 400 mg 06/11/19 22:00 06/15/19 22:40 Zovirax Oral Suspension - GT 400 mg BID JORGE Administration Albuterol Sulfate 1 amp 06/13/19 14:31 Ventolin 0.083% Nebulizer Soln - NEB Q6H PRN WHEEZING Albuterol/Ipratropium 1 amp 06/12/19 08:00 06/15/19 20:20 Duoneb - NEB 1 amp RQID JORGE Administration Bacitracin 1 applic 06/11/19 22:00 06/15/19 21:21 Bacitracin - TP 1 applic BID JORGE Administration Baclofen 10 mg 06/11/19 22:00 06/15/19 22:40 Lioresal - GT 10 mg BID JORGE Administration Chlorhexidine Gluconate 1 applic 06/11/19 22:00 06/15/19 21:19 Hibiclens For Decolonization - TP 1 applic HS JORGE Administration Clobazam 10 mg 06/11/19 22:00 06/15/19 21:18 Onfi - GT 10 mg HS JORGE Administration Clobazam 5 mg 06/12/19 10:00 06/15/19 09:05 Onfi - GT 5 mg DAILY JORGE Administration Clonazepam 1.5 mg 06/11/19 22:00 06/16/19 05:44 Klonopin - GT 1.5 mg TID JORGE Administration Famotidine 10 mg 06/11/19 22:00 06/15/19 22:40 Pepcid NGT 10 mg BID JORGE Administration Fluticasone Propionate 2 spray 06/12/19 07:00 06/15/19 06:15 Flonase - NS 2 sprays AM JORGE Administration Heparin Sodium (Porcine) 5,000 unit 06/11/19 14:00 06/16/19 05:43 Heparin - SQ 5,000 unit TID JORGE Administration Propofol 1,000,000 mcg in 100 mls @ 1.197 mls/hr 06/11/19 16:45 06/15/19 20:43 Diprivan - IVPB Not Given TITR JORGE Protocol 5 MCG/KG/MIN Piperacillin Sod/Tazobactam 50 mls @ 100 mls/hr 06/13/19 08:00 06/16/19 02:34 Sod 3.375 gm/ Dextrose IVPB 100 mls/hr Q8H-IV JORGE Administration Protocol Midazolam HCl 100 mg/ Sodium 100 mls @ 4 mls/hr 06/14/19 12:30 06/15/19 13:01 Chloride IVPB Not Given TITR JORGE Protocol 4 MG/HR Dexmedetomidine HCl 200 mcg/ 50 mls @ 2.16 mls/hr 06/14/19 14:00 06/15/19 15:39 Sodium Chloride IVPB Not Given TITR JORGE 0.2 MCG/KG/HR Lactated Ringer's 1,000 ml in 1,000 mls @ 75 mls/hr 06/14/19 15:30 06/15/19 15:58 Lactated Ringers Solution IV 75 mls/hr ASDIR JORGE Administration Lactobacillus Acidophilus 1 tab 06/11/19 22:00 06/15/19 21:18 Bacid - GT 1 tab HS JORGE Administration Lamotrigine 200 mg 06/11/19 22:00 06/15/19 22:40 Lamictal - PO 200 mg BID JORGE Administration Magnesium Hydroxide 20 ml 06/11/19 22:00 06/15/19 21:19 Milk Of Magnesia - GT 20 ml BID JORGE Administration Multivitamins/Minerals 15 ml 06/11/19 22:00 06/15/19 22:40 Certavite-Antioxidant Liquid GT 15 ml HS JORGE Administration Mupirocin 1 applic 06/11/19 22:00 06/15/19 21:19 Bactroban Ointment (For Decolonization) - NS 06/16/19 21:59 1 applic BID JORGE Administration Phenobarbital 45 mg 06/15/19 13:00 06/15/19 21:20 Phenobarbital Liquid - PO 45 mg BID JORGE Administration Sodium Chloride 2 spray 06/11/19 22:00 06/15/19 21:20 [place] Nasal [place] - NS 2 spray BID JORGE Administration ASSESSMENT/PLAN: 24 yo M PMH cerebral palsy, epilepsy, herpes encephalitis, GERD, and aspiration pneumonia, recently discharged from [facility] with sepsis secondary to PNA and flu requiring intubation, admitted to ICU s/p intubation for PNA. Neuro: - hx cerebral palsy and epilepsy - continue home medications: diazepam, clobazam, clonazepam, lamotrigine, phenobarbital CV: - hx bradycardia during previous admission - EKG without acute changes. Qtc 432. - continous cardiac monitoring Respiratory: - acute hypoxic respiratory failure - s/p extubation 06/16 - now on nonrebreather at 12L - bronchodilation via Duonebs/Ventolin - CXR with improvement in L base GI: - hx GERD - continue home dose famotidine - s/p PEG tube placement - elevated ALT, alk phos - liver enzymes trending down - consider further imaging - tube feeds held 06/12 tachypnea ID: - aspiration PNA - hx herpes encephalitis - continue home dose acyclovir - febrile, re-cultured 06/16 - on piptazo, started 06/11/2019 - prior aerobic blood culture with gram positive cocci in clusters - prior sputum cx with presumed Pseudomonas - ID Consulted, appreciate recs Renal: - Lane inserted 06/12/2019 - Lane dc'd 06/16 FEN: - LR @ 75 ccs/hr - replete lytes PRN - tube feeds per dietary recs LTD: - Lane 06/12, dc'd 06/16 - intubated 06/12, extubated 06/16 Dispo: - ICU Monitoring Visit type - Emergency Visit Emergency Visit: No - New Patient This patient is new to me today: No - Critical Care Critical Care patient: Yes Total Critical Care Time (in minutes): 45 Critical Care Statement: The care of this patient involved high complexity decision making to prevent further life threatening deterioration of the patient's condition and/or to evaluate & treat vital organ system(s) failure or risk of failure. ATTENDING PHYSICIAN STATEMENT I saw and evaluated the patient. I reviewed the resident's note and discussed the case with the resident. I agree with the resident's findings and plan as documented. SUBJECTIVE: OBJECTIVE: ASSESSMENT AND PLAN:
[2019-06-16 07:58] LABS: ALBUMIN 2.8 g/dl (3.4-5.0); BILIRUBIN,TOTAL 0.2 mg/dL (0.2-1); CALCIUM 8.6 mg/dL (8.5-10.1); CREATININE 0.6 mg/dL (0.55-1.3); MAGNESIUM 1.9 mg/dL (1.8-2.4); PHOSPHOROUS 3.8 mg/dL (2.5-4.9); POTASSIUM 4.3 mmol/L (3.5-5.1); TOT PROT 6.7 g/dl (6.4-8.2)
[2019-06-16] MEDS: ALBUTEROL SO4 2.5/IPRATROPIUM 0.5 INH SOL 3 ML VIAL.NEB. NEB SCH ×4 (08:00→20:06)
[2019-06-16] MEDS: PHENobarbital 20 MG/5 ML UNIT-DOSE CUP PO SCH ×2 (09:32→21:34)
[2019-06-16] MEDS: cloBAZam 10 MG TABLET GT SCH ×2 (09:34→21:32)
[2019-06-16] MEDS: MAGNESIUM HYDROX 2400MG/30ML ORAL SUSPENSION 30 ML CUP GT SCH ×2 (09:36→21:33)
[2019-06-16] MEDS: SODIUM CHLORIDE NASAL SPRAY 44 ML BOTTLE NS SCH ×2 (09:37→21:33)
[2019-06-16] MEDS: lamoTRIgine 100 MG TABLET PO SCH ×2 (09:37→21:31)
[2019-06-16] MEDS: FAMOTIDINE 40 MG/5 ML ORAL SUSPENSION NGT SCH ×2 (09:37→21:31)
[2019-06-16] MEDS: BACLOFEN 10 MG TABLET (FP) GT SCH ×2 (09:37→21:32)
[2019-06-16] MEDS: BACITRACIN 15 GM TUBE TOPICAL OINTMENT TP SCH ×2 (09:38→21:35)
[2019-06-16] MEDS: MUPIROCIN 2% TOPICAL OINTMENT FOR DECOLONIZATION NS SCH (09:38)
[2019-06-16] MEDS: FLUTICASONE PROP 0.05% 16 GM NASAL SPRAY NS SCH (09:38)
[2019-06-16] MEDS: ACYCLOVIR 200 MG/5 ML LIQUID GT SCH ×2 (09:39→21:31)
[2019-06-16] MEDS ORDERED: IBUPROFEN 800 MG/8 ML IJ IVPB PRN (10:11)
--- NOTE | 2019-06-16 12:04 | PN ---
Teaching Attending Note Name of Resident: Danay Blevins ATTENDING PHYSICIAN STATEMENT I saw and evaluated the patient. I reviewed the resident's note and discussed the case with the resident. I agree with the resident's findings and plan as documented. SUBJECTIVE: Pt seen and examined in the ICU. Intubated, sedated. Placed on CPAP/PS trials with adequate tidal volumes, less secretions today and subsequently extubated during rounds. OBJECTIVE: Vital Signs Period Temp Pulse Resp BP Sys/Linares Pulse Ox Last 24 Hr 98.4 F-100.3 F 46-80 12-20 87-111/40-62 98-99 Intake & Output 06/13/19 06/14/19 06/15/19 06/16/19 23:59 23:59 23:59 23:59 Intake Total 1999.8 1660 2365.6 1074.1 Output Total 3800 3300 1800 2000 Balance -1800.2 -1640 565.6 -925.9 Weight 43.091 kg 43.363 kg 39.599 kg 40.511 kg Gen: extubated Heart: RRR Lung: decreased breath sounds at the bases Abd: soft, nontender Ext: no edema, contracted CBC, BMP 06/16/19 05:50 06/16/19 05:50 Active Medications Acetaminophen (Tylenol Oral Solution -) 650 mg GT Q4H PRN PRN Reason: FEVER Last Admin: 06/16/19 03:06 Dose: 650 mg Acyclovir (Zovirax Oral Suspension -) 400 mg GT BID [facility] Last Admin: 06/16/19 09:39 Dose: 400 mg Albuterol Sulfate (Ventolin 0.083% Nebulizer Soln -) 1 amp NEB Q6H PRN PRN Reason: WHEEZING Albuterol/Ipratropium (Duoneb -) 1 amp NEB RQID [facility] Last Admin: 06/16/19 08:00 Dose: 1 amp Bacitracin (Bacitracin -) 1 applic TP BID [facility] Last Admin: 06/16/19 09:38 Dose: 1 applic Baclofen (Lioresal -) 10 mg GT BID [facility] Last Admin: 06/16/19 09:37 Dose: 10 mg Chlorhexidine Gluconate (Hibiclens For Decolonization -) 1 applic TP HS [facility] Last Admin: 06/15/19 21:19 Dose: 1 applic Clobazam (Onfi -) 10 mg GT HS [facility] Last Admin: 06/15/19 21:18 Dose: 10 mg Clobazam (Onfi -) 5 mg GT DAILY [facility] Last Admin: 06/16/19 09:34 Dose: 5 mg Clonazepam (Klonopin -) 1.5 mg GT TID [facility] Last Admin: 06/16/19 05:44 Dose: 1.5 mg Famotidine (Pepcid) 10 mg NGT BID [facility] Last Admin: 06/16/19 09:37 Dose: 10 mg Fluticasone Propionate (Flonase -) 2 spray NS AM [facility] Last Admin: 06/16/19 09:38 Dose: 2 sprays Heparin Sodium (Porcine) (Heparin -) 5,000 unit SQ TID [facility] Last Admin: 06/16/19 05:43 Dose: 5,000 unit Propofol (Diprivan -) 1,000,000 mcg in 100 mls @ 1.197 mls/hr IVPB TITR [facility]; Protocol Last Admin: 06/15/19 20:43 Dose: Not Given Piperacillin Sod/Tazobactam (Sod 3.375 gm/ Dextrose) 50 mls @ 100 mls/hr IVPB Q8H-IV [facility]; Protocol Last Admin: 06/16/19 09:35 Dose: 100 mls/hr Midazolam HCl 100 mg/ Sodium (Chloride) 100 mls @ 4 mls/hr IVPB TITR [facility]; Protocol Last Admin: 06/15/19 13:01 Dose: Not Given Dexmedetomidine HCl 200 mcg/ (Sodium Chloride) 50 mls @ 2.16 mls/hr IVPB TITR [facility] Last Admin: 06/15/19 15:39 Dose: Not Given Lactated Ringer's (Lactated Ringers Solution) 1,000 ml in 1,000 mls @ 75 mls/ hr IV ASDIR [facility] Last Admin: 06/15/19 15:58 Dose: 75 mls/hr Lactobacillus Acidophilus (Bacid -) 1 tab GT HS [facility] Last Admin: 06/15/19 21:18 Dose: 1 tab Lamotrigine (Lamictal -) 200 mg PO BID [facility] Last Admin: 06/16/19 09:37 Dose: 200 mg Magnesium Hydroxide (Milk Of Magnesia -) 20 ml GT BID [facility] Last Admin: 06/16/19 09:36 Dose: 20 ml Multivitamins/Minerals (Certavite-Antioxidant Liquid) 15 ml GT HS [facility] Last Admin: 06/15/19 22:40 Dose: 15 ml Mupirocin (Bactroban Ointment (For Decolonization) -) 1 applic NS BID [facility] Stop: 06/16/19 21:59 Last Admin: 06/16/19 09:38 Dose: 1 applic Phenobarbital (Phenobarbital Liquid -) 45 mg PO BID [facility] Last Admin: 06/16/19 09:32 Dose: 45 mg Sodium Chloride ([place] Nasal [place] -) 2 spray NS BID [facility] Last Admin: 06/16/19 09:37 Dose: 2 spray ASSESSMENT AND PLAN: Acute Hypoxic Respiratory Failure Pneumonia likely Aspiration Cerebral Palsy Mental Retardation Seizure Disorder GERD Anemia - pt extubated - continue antibiotics - inhaled bronchodilators - taper FiO2 to keep SpO2 >90% - monitor urine output, creatinine - aspiration precautions - DVT/GI prophylaxis - continue ICU monitoring critical care time spent in reviewing chart, evaluating patient and formulating plan 35 min
--- NOTE | 2019-06-16 12:33 | PN ---
Physical Exam: SUBJECTIVE: Patient seen and examined. On precedex, versed. TF has been held. Pt making less secretions, improving, afebrile. Later in day pt extubated placed on 100%nonrebreather satting 100%. OBJECTIVE: Vital Signs Period Temp Pulse Resp BP Sys/Linares Pulse Ox Last 24 Hr 98.4 F-100.3 F 46-80 12-31 87-111/40-62 98-99 GENERAL: The patient is intubated and sedated on SIMV LUNGS: Breath sounds clearer today, less secretions, no crackles or accesory muscle use. HEART: Regular rate and rhythm, S1, S2 without murmur, rub or gallop. ABDOMEN: Soft, nontender, nondistended EXTREMITIES: 2+ pulses, warm, well-perfused, no edema. NEUROLOGICAL: Cranial nerves II through XII grossly intact. Normal speech, gait not observed. Laboratory Results - last 24 hr 06/16/19 06/16/19 05:50 05:50 WBC 9.2 RBC 3.31 L Hgb 11.4 L Hct 32.8 L MCV 99.2 H MCH 34.4 H MCHC 34.7 RDW 13.7 Plt Count 307 MPV 9.0 Absolute Neuts (auto) 5.7 Neutrophils % 61.7 Lymphocytes % 25.4 Monocytes % 12.3 H Eosinophils % 0.3 Basophils % 0.3 Nucleated RBC % 0 Sodium 138 Potassium 4.3 Chloride 107 Carbon Dioxide 23 Anion Gap 8 BUN 9.0 Creatinine 0.6 Est GFR (CKD-EPI)AfAm 164.25 Est GFR (CKD-EPI)NonAf 141.72 Random Glucose 90 Calcium 8.6 Phosphorus 3.8 Magnesium 1.9 Total Bilirubin 0.2 AST 14 L ALT 35 Alkaline Phosphatase 155 H Total Protein 6.7 Albumin 2.8 L Active Medications Generic Name Dose Route Start Last Admin Trade Name Freq PRN Reason Stop Dose Admin Acetaminophen 650 mg 06/14/19 17:58 06/16/19 03:06 Tylenol Oral Solution - GT 650 mg Q4H PRN Administration FEVER Acyclovir 400 mg 06/11/19 22:00 06/16/19 09:39 Zovirax Oral Suspension - GT 400 mg BID [facility] Administration Albuterol Sulfate 1 amp 06/13/19 14:31 Ventolin 0.083% Nebulizer Soln - NEB Q6H PRN WHEEZING Albuterol/Ipratropium 1 amp 06/12/19 08:00 06/16/19 08:00 Duoneb - NEB 1 amp RQID [facility] Administration Bacitracin 1 applic 06/11/19 22:00 06/16/19 09:38 Bacitracin - TP 1 applic BID [facility] Administration Baclofen 10 mg 06/11/19 22:00 06/16/19 09:37 Lioresal - GT 10 mg BID [facility] Administration Chlorhexidine Gluconate 1 applic 06/11/19 22:00 06/15/19 21:19 Hibiclens For Decolonization - TP 1 applic HS [facility] Administration Clobazam 10 mg 06/11/19 22:00 06/15/19 21:18 Onfi - GT 10 mg HS [facility] Administration Clobazam 5 mg 06/12/19 10:00 06/16/19 09:34 Onfi - GT 5 mg DAILY [facility] Administration Clonazepam 1.5 mg 06/11/19 22:00 06/16/19 05:44 Klonopin - GT 1.5 mg TID [facility] Administration Famotidine 10 mg 06/11/19 22:00 06/16/19 09:37 Pepcid NGT 10 mg BID [facility] Administration Fluticasone Propionate 2 spray 06/12/19 07:00 06/16/19 09:38 Flonase - NS 2 sprays AM [facility] Administration Heparin Sodium (Porcine) 5,000 unit 06/11/19 14:00 06/16/19 05:43 Heparin - SQ 5,000 unit TID [facility] Administration Propofol 1,000,000 mcg in 100 mls @ 1.197 mls/hr 06/11/19 16:45 06/15/19 20: 43 Diprivan - IVPB Not Given TITR [facility] Protocol 5 MCG/KG/MIN Piperacillin Sod/Tazobactam 50 mls @ 100 mls/hr 06/13/19 08:00 06/16/19 09:35 Sod 3.375 gm/ Dextrose IVPB 100 mls/hr Q8H-IV [facility] Administration Protocol Midazolam HCl 100 mg/ Sodium 100 mls @ 4 mls/hr 06/14/19 12:30 06/15/19 13:01 Chloride IVPB Not Given TITR [facility] Protocol 4 MG/HR Dexmedetomidine HCl 200 mcg/ 50 mls @ 2.16 mls/hr 06/14/19 14:00 06/15/19 15: 39 Sodium Chloride IVPB Not Given TITR [facility] 0.2 MCG/KG/HR Lactated Ringer's 1,000 ml in 1,000 mls @ 75 mls/hr 06/14/19 15:30 06/15/19 15:58 Lactated Ringers Solution IV 75 mls/hr ASDIR [facility] Administration Lactobacillus Acidophilus 1 tab 06/11/19 22:00 06/15/19 21:18 Bacid - GT 1 tab HS [facility] Administration Lamotrigine 200 mg 06/11/19 22:00 06/16/19 09:37 Lamictal - PO 200 mg BID [facility] Administration Magnesium Hydroxide 20 ml 06/11/19 22:00 06/16/19 09:36 Milk Of Magnesia - GT 20 ml BID [facility] Administration Multivitamins/Minerals 15 ml 06/11/19 22:00 06/15/19 22:40 Certavite-Antioxidant Liquid GT 15 ml HS [facility] Administration Mupirocin 1 applic 06/11/19 22:00 06/16/19 09:38 Bactroban Ointment (For Decolonization) - NS 06/16/19 21:59 1 applic BID [facility] Administration Phenobarbital 45 mg 06/15/19 13:00 06/16/19 09:32 Phenobarbital Liquid - PO 45 mg BID [facility] Administration Sodium Chloride 2 spray 06/11/19 22:00 06/16/19 09:37 [place] Nasal Vancle[place] - NS 2 spray BID [facility] Administration ASSESSMENT/PLAN: Images: - CXR showing ? left side infiltrate vs atelectasis in retrocardiac area - CT chest- residual L>R patchy ground glass opacities in Lt and to lesser extent rt lung may reperesent infiltrates, moderately distended colon with air. This is a 24 y/o M from [place] with hx of CP, epilepsy, herpes encephalitis, GERD, and aspiration pneumonia recently discharged from [facility] 2 days ago after being treated for sepsis 2/2 PNA and flu requiring intubation and ICU admission. Pt presenting with SOB and new oxygen requirements. Pt satting 98% on 4LNC with profuse coughing. Per chart from [place], pt O2 sat was at 85% on RA, but after 4L O2 it improved to 93%, with a pulse of 125, RR of 60/min. #Acute Hypoxic Respiratory failure with sepsis 2/2 likely aspiration PNA - possible weaning trial today for extubation - ICU team monitoring - continue zosyn day 4 per ID, CXR- showing improvement in infiltrate - keep SaO2 >90% on vent settings - MRSA nares negative - ID (Dr Harrison) on case - UA legionella, strep PNA negative #Hypokalemia - resolved can stop the addition of K to fluids. - LR 75 cc/hr #Seizure disorder - continue anti-seizure regimen - Clonazepam, Lamotrigene, Phenobarbital #Hx of herpes Encephalitis - maintained on Acyclovir # Recent elevation in transaminases ? sepsis related/Abx related US Abdo - no acute pathology. wnl now DVT: Hep 5K TID Visit type - Emergency Visit Emergency Visit: Yes ED Registration Date: 06/11/19 Care time: The patient presented to the Emergency Department on the above date and was hospitalized for further evaluation of their emergent condition. - New Patient This patient is new to me today: No - Critical Care Critical Care patient: Yes Total Critical Care Time (in minutes): 35 Critical Care Statement: The care of this patient involved high complexity decision making to prevent further life threatening deterioration of the patient 's condition and/or to evaluate & treat vital organ system(s) failure or risk of failure. - Discharge Referral Referred to [facility] Med [facility] No ATTENDING PHYSICIAN STATEMENT I saw and evaluated the patient. I reviewed the resident's note and discussed the case with the resident. I agree with the resident's findings and plan as documented. SUBJECTIVE: OBJECTIVE: ASSESSMENT AND PLAN:
[2019-06-16] MEDS: MIDAZOLAM 100 MG in SODIUM CHLORIDE 100 ML IVPB SCH (13:24)
[2019-06-16] MEDS: DEXMEDETOMIDINE HCL 200 MCG in SODIUM CHLORIDE 48 ML IVPB SCH (17:22)
[2019-06-16] MEDS: LACTATED RINGERS SOLUTION 1,000 ML/1,000 ML INFUS.BAG IV SCH (17:23)
[2019-06-16] MEDS: PROPOFOL 1,000,000 MCG/100 ML VIAL IVPB SCH (17:24)
[2019-06-16] MEDS: LACTOBACILLUS ACIDOPHILUS 1 TABLET GT SCH (21:32)
[2019-06-16] MEDS: MULTIVIT-MINERALS ORAL LIQUID GT SCH (21:32)
[2019-06-16] MEDS: CHLORHEXIDINE GLUCONATE 4% CLEANSER FOR DECOLONIZATION TP SCH (21:33)
[2019-06-17 00:29] LABS: PH,URINE 8.5 (5.0-8.0); URINE APPEARANCE CLEAR; URINE BILIRUBIN NEGATIVE (NEGATIVE); URINE COLOR YELLOW; URINE GLUCOSE (UA) NEGATIVE (NEGATIVE); URINE KETONE NEGATIVE (NEGATIVE); URINE LEUK ESTERASE NEGATIVE (NEGATIVE); URINE NITRITE NEGATIVE (NEGATIVE); URINE PROTEIN NEGATIVE (NEGATIVE)
[2019-06-17] MEDS: PIPERACILLIN/TAZOB 3.375 GM 3.375 GM in DEXTROSE 5%-WATER - 50 ML IVPB SCH ×3 (01:03→17:33)
[2019-06-17] MEDS ORDERED: RAPID SEQUENCE INTUBATION KIT NR ONE (01:15)
[2019-06-17] MEDS ORDERED: VANCOMYCIN 1 GM in D5W (PRE-DOCKED) 1,000 MG/250 ML IVPB ONE (01:15)
[2019-06-17 01:19] LABS: ARTERIAL BLD GAS O2 SATURATION 93.4 % (95-98); ARTERIAL BLOOD GAS BASE EXCESS 2.4 meq/l (-2-2); ARTERIAL BLOOD GAS PCO2 37.5 mmHg (35-45); ARTERIAL BLOOD GAS pH 7.45 (7.35-7.45)
[2019-06-17 01:22] LABS: ALLENS TEST POSITIVE
[2019-06-17] MEDS ORDERED: MIDAZOLAM IN 0.9 % SOD.CHLORID 100 MG/100 ML PLAST..BAG IVPB SCH (01:30)
[2019-06-17] MEDS ORDERED: DEXMEDETOMIDINE HCL 200 MCG in SODIUM CHLORIDE 48 ML IVPB SCH (01:30)
--- NOTE | 2019-06-17 01:33 | PN ---
Progress Note (short form) - Note Progress Note: Called to intubate this patient who was extubated yesterday and is in respiratory failure with respiratory rate in 50s and saturation in80s,Gave Propofol 100mg f/b Succinylcholine 80 mg IV.DL with MAC #3 VCV ETT 7 secured at 18cm.P 112,BP 97/59 and Spo2 100 on O2 100.Advised ABG and CXR.
[2019-06-17] MEDS ORDERED: MIDAZOLAM HCL 2 MG/2 ML SINGLE DOSE VIAL IVPUSH ONE (01:36)
[2019-06-17] MEDS ORDERED: MIDAZOLAM HCL 5 MG/1 ML Single Dose Vial ONE (01:36)
[2019-06-17] MEDS ORDERED: MIDAZOLAM HCL 2 MG/2 ML SINGLE DOSE VIAL IM ONE (01:37)
[2019-06-17] MEDS ORDERED: AZITHROMYCIN IVPB 500 MG in DEXTROSE 5%-WATER - 250 ML IVPB ONE (01:46)
[2019-06-17] MEDS: PROPOFOL 1,000,000 MCG/100 ML VIAL IVPB SCH (02:36)
--- NOTE | 2019-06-17 02:36 | PN ---
Progress Note (short form) - Note Progress Note: Patient seen to be having respiratory rate in 50s and 60s with desaturation to the high 80s. Anesthesia was paged down for intubation. The patient was given propofol 100 mg and succinylcholine 80 mg IV, and subsequently intubated at approximately 0123. Intubation was performed via direct laryngoscopy with MAC #3 and an ETT 7, secured at 18cm. Patient with positive color change, bilateral breath sounds. CXR ordered, will f/u to confirm placement.
[2019-06-17] MEDS: ACETAMINOPHEN 650 MG/20.3 ML ORAL SOLUTION (CUPS) GT PRN (02:44)
[2019-06-17 06:06] LABS: ARTERIAL BLD GAS O2 SATURATION 99.1 % (95-98); ARTERIAL BLOOD GAS BASE EXCESS 3.7 meq/l (-2-2); ARTERIAL BLOOD GAS PCO2 39.2 mmHg (35-45); ARTERIAL BLOOD GAS PO2 154 mmHg (80-100); ARTERIAL BLOOD GAS pH 7.46 (7.35-7.45)
[2019-06-17 06:15] LABS: ALLENS TEST POSITIVE
[2019-06-17] MEDS ORDERED: ACETAMINOPHEN 1000 MG/100 ML VIAL (NON FORMULARY) IVPB PRN (06:19)
[2019-06-17] MEDS: clonazePAM 0.5 MG TABLET GT SCH ×3 (06:29→21:27)
[2019-06-17] MEDS: HEPARIN NA (PORCINE) 5,000 UNITS/ML 1ML VIAL SQ SCH ×3 (06:29→21:26)
[2019-06-17] MEDS: FLUTICASONE PROP 0.05% 16 GM NASAL SPRAY NS SCH (06:30)
[2019-06-17 06:42] LABS: BASO % 0.2 % (0-2.0); EOS % 0.1 % (0-4.5); HEMATOCRIT 34.2 % (35.4-49); HEMOGLOBIN 11.9 GM/dL (11.7-16.9); LYMPH % 14.8 % (8-40); MCH 34.3 pg (25.7-33.7); MCHC 34.7 g/dl (32.0-35.9); MEAN CELL VOLUME 98.8 fl (80-96); MONO % 5.5 % (3.8-10.2); NEUT % 79.4 % (42.8-82.8); PLATELET COUNT 316 K/MM3 (134-434); RBC 3.47 M/mm3 (4.00-5.60); RDW 13.9 % (11.9-15.9)
[2019-06-17 06:58] LABS: BILIRUBIN,TOTAL 0.3 mg/dL (0.2-1); BLOOD UREA NITROGEN 6.6 mg/dL (7-18); CALCIUM 8.8 mg/dL (8.5-10.1); CREATININE 0.6 mg/dL (0.55-1.3); MAGNESIUM 2.1 mg/dL (1.8-2.4); POTASSIUM 3.6 mmol/L (3.5-5.1); TOT PROT 7.1 g/dl (6.4-8.2)
[2019-06-17] MEDS ORDERED: PIPERACILLIN/TAZOBACTAM 3.375 GM VIAL IVPB ONE ×2 (09:13→17:31)
[2019-06-17] MEDS ORDERED: PT OWN MED DRAWER 7, Y5N ONE ×2 (09:13→20:57)
[2019-06-17] MEDS ORDERED: DEXTROSE 5%-WATER - 50 ML IVPB ONE ×2 (09:14→17:31)
[2019-06-17] MEDS: ACYCLOVIR 200 MG/5 ML LIQUID GT SCH ×2 (09:21→21:29)
[2019-06-17] MEDS: FAMOTIDINE 40 MG/5 ML ORAL SUSPENSION NGT SCH ×2 (09:23→21:28)
[2019-06-17] MEDS: MAGNESIUM HYDROX 2400MG/30ML ORAL SUSPENSION 30 ML CUP GT SCH ×2 (09:25→21:28)
[2019-06-17] MEDS: BACLOFEN 10 MG TABLET (FP) GT SCH ×2 (09:25→21:27)
[2019-06-17] MEDS: lamoTRIgine 100 MG TABLET PO SCH ×2 (09:25→21:27)
[2019-06-17] MEDS: SODIUM CHLORIDE NASAL SPRAY 44 ML BOTTLE NS SCH ×2 (09:26→21:30)
[2019-06-17] MEDS: cloBAZam 10 MG TABLET GT SCH ×2 (09:26→21:28)
[2019-06-17] MEDS: BACITRACIN 15 GM TUBE TOPICAL OINTMENT TP SCH ×2 (09:35→21:26)
[2019-06-17] MEDS: PHENobarbital 20 MG/5 ML UNIT-DOSE CUP PO SCH ×2 (10:12→21:28)
--- NOTE | 2019-06-17 11:31 | PN ---
Teaching Attending Note Name of Resident: Maurice Watson ATTENDING PHYSICIAN STATEMENT I saw and evaluated the patient. I reviewed the resident's note and discussed the case with the resident. I agree with the resident's findings and plan as documented. SUBJECTIVE: Patient seen and examined in the ICU. Intubated, sedated. AC Mode pf vent, 40% . No pressors. Did not tolerate wean trials yesterday. OBJECTIVE: Intake & Output 06/14/19 06/15/19 06/16/19 06/17/19 23:59 23:59 23:59 23:59 Intake Total 1660 2365.6 1374.1 705 Output Total 3300 1800 4500 800 Balance -1640 565.6 -3125.9 -95 Weight 95 lb 9.6 oz 87 lb 4.8 oz 89 lb 5 oz 89 lb 5 oz Last Vital Signs Temp Pulse Resp BP Pulse Ox 99.5 F 80 12 110/65 100 06/17/19 06:00 06/17/19 10:00 06/17/19 10:00 06/17/19 10:00 06/17/19 10:00 Active Medications Acetaminophen (Ofirmev Injection -) 750 mg IVPB Q6H PRN PRN Reason: FEVER Stop: 06/18/19 06:19 Acyclovir (Zovirax Oral Suspension -) 400 mg GT BID [facility] Last Admin: 06/17/19 09:21 Dose: 400 mg Albuterol Sulfate (Ventolin 0.083% Nebulizer Soln -) 1 amp NEB Q6H PRN PRN Reason: WHEEZING Last Admin: 06/17/19 07:30 Dose: 1 amp Bacitracin (Bacitracin -) 1 applic TP BID [facility] Last Admin: 06/17/19 09:35 Dose: 1 applic Baclofen (Lioresal -) 10 mg GT BID [facility] Last Admin: 06/17/19 09:25 Dose: 10 mg Chlorhexidine Gluconate (Hibiclens For Decolonization -) 1 applic TP HS [facility] Last Admin: 06/16/19 21:33 Dose: 1 applic Clobazam (Onfi -) 10 mg GT HS [facility] Last Admin: 06/16/19 21:32 Dose: 10 mg Clobazam (Onfi -) 5 mg GT DAILY [facility] Last Admin: 06/17/19 09:26 Dose: 5 mg Clonazepam (Klonopin -) 1.5 mg GT TID [facility] Last Admin: 06/17/19 06:29 Dose: 1.5 mg Famotidine (Pepcid) 10 mg NGT BID [facility] Last Admin: 06/17/19 09:23 Dose: 10 mg Fluticasone Propionate (Flonase -) 2 spray NS AM [facility] Last Admin: 06/17/19 06:30 Dose: 2 sprays Heparin Sodium (Porcine) (Heparin -) 5,000 unit SQ TID [facility] Last Admin: 06/17/19 06:29 Dose: 5,000 unit Piperacillin Sod/Tazobactam (Sod 3.375 gm/ Dextrose) 50 mls @ 100 mls/hr IVPB Q8H-IV [facility]; Protocol Last Admin: 06/17/19 09:20 Dose: 100 mls/hr Lactated Ringer's (Lactated Ringers Solution) 1,000 ml in 1,000 mls @ 75 mls/ hr IV ASDIR [facility] Last Admin: 06/16/19 17:23 Dose: 75 mls/hr Dexmedetomidine HCl 200 mcg/ (Sodium Chloride) 50 mls @ 4.05 mls/hr IVPB TITR [facility] Last Admin: 06/17/19 06:30 Dose: Not Given Propofol (Diprivan -) 1,000,000 mcg in 100 mls @ 1.215 mls/hr IVPB TITR [facility]; Protocol Last Admin: 06/17/19 02:36 Dose: 20 mcg/kg/min, 4.861 mls/hr Lactobacillus Acidophilus (Bacid -) 1 tab GT HS [facility] Last Admin: 06/16/19 21:32 Dose: 1 tab Lamotrigine (Lamictal -) 200 mg PO BID [facility] Last Admin: 06/17/19 09:25 Dose: 200 mg Magnesium Hydroxide (Milk Of Magnesia -) 20 ml GT BID [facility] Last Admin: 06/17/19 09:25 Dose: 20 ml Multivitamins/Minerals (Certavite-Antioxidant Liquid) 15 ml GT HS [facility] Last Admin: 06/16/19 21:32 Dose: 15 ml Phenobarbital (Phenobarbital Liquid -) 45 mg PO BID [facility] Last Admin: 06/17/19 10:12 Dose: 45 mg Sodium Chloride ([place] Nasal [place] -) 2 spray NS BID [facility] Last Admin: 06/17/19 09:26 Dose: 2 spray Gen: Intubated and sedated Heart: RRR Lung: Vented, bilateral scattered rhonchi, decreased breath sounds at the bases Abd: soft, nontender Ext: no edema, contracted Laboratory Results - last 24 hr 06/16/19 06/17/19 06/17/19 23:15 01:10 05:50 WBC RBC Hgb Hct MCV MCH MCHC RDW Plt Count MPV Absolute Neuts (auto) Neutrophils % Lymphocytes % Monocytes % Eosinophils % Basophils % Nucleated RBC % Anticoagulation Therapy No Result Required. No Result Required. Puncture Site Left radial Right radial ABG pH 7.45 7.46 H ABG pCO2 at Pt Temp 37.5 39.2 ABG pO2 at Pt Temp 65.0 L 154 H ABG HCO3 25.9 27.3 H ABG O2 Sat (Measured) 93.4 L 99.1 H ABG O2 Content 15.2 18.0 ABG Base Excess 2.4 H 3.7 H Kaushal Test Positive Positive O2 Delivery Device Nrm Vent Oxygen Flow Rate 100% 40% Vent Mode No Result Required. A/c Vent Rate No Result Required. 12 Mechanical Rate No Result Required. Yes PEEP 5.0 Pressure Support Vent No Result Required. 350 Sodium Potassium Chloride Carbon Dioxide Anion Gap BUN Creatinine Est GFR (CKD-EPI)AfAm Est GFR (CKD-EPI)NonAf Random Glucose Calcium Phosphorus Magnesium Total Bilirubin AST ALT Alkaline Phosphatase Total Protein Albumin Urine Color Yellow Urine Appearance Clear Urine pH 8.5 H Ur Specific Phelps 1.032 Urine Protein Negative Urine Glucose (UA) Negative Urine Ketones Negative Urine Blood Negative Urine Nitrite Negative Urine Bilirubin Negative Urine Urobilinogen 1.0 Ur Leukocyte Esterase Negative 06/17/19 06/17/19 06:05 06:05 WBC 13.0 H RBC 3.47 L Hgb 11.9 Hct 34.2 L MCV 98.8 H MCH 34.3 H MCHC 34.7 RDW 13.9 Plt Count 316 MPV 9.0 Absolute Neuts (auto) 10.3 H Neutrophils % 79.4 D Lymphocytes % 14.8 D Monocytes % 5.5 Eosinophils % 0.1 Basophils % 0.2 Nucleated RBC % 0 Anticoagulation Therapy Puncture Site ABG pH ABG pCO2 at Pt Temp ABG pO2 at Pt Temp ABG HCO3 ABG O2 Sat (Measured) ABG O2 Content ABG Base Excess Kaushal Test O2 Delivery Device Oxygen Flow Rate Vent Mode Vent Rate Mechanical Rate PEEP Pressure Support Vent Sodium 138 Potassium 3.6 Chloride 105 Carbon Dioxide 27 Anion Gap 6 L BUN 6.6 L Creatinine 0.6 Est GFR (CKD-EPI)AfAm 164.25 Est GFR (CKD-EPI)NonAf 141.72 Random Glucose 90 Calcium 8.8 Phosphorus 3.0 Magnesium 2.1 Total Bilirubin 0.3 AST 25 ALT 35 Alkaline Phosphatase 150 H Total Protein 7.1 Albumin 3.0 L Urine Color Urine Appearance Urine pH Ur Specific P[place]ps Urine Protein Urine Glucose (UA) Urine Ketones Urine Blood Urine Nitrite Urine Bilirubin Urine Urobilinogen Ur Leukocyte Esterase ASSESSMENT AND PLAN: Acute Hypoxic Respiratory Failure Pneumonia likely Aspiration Cerebral Palsy Mental Retardation Seizure Disorder GERD Anemia - Wean trials as tolerated - continue antibiotics - inhaled bronchodilators - taper FiO2 to keep SpO2 >90% - monitor urine output, creatinine - aspiration precautions - DVT/GI prophylaxis - continue ICU monitoring Dr Price critical care time spent in reviewing chart, evaluating patient and formulating plan 35 min
--- NOTE | 2019-06-17 11:56 | PN ---
Physical Exam: SUBJECTIVE: Patient seen and examined in the morning. Patient was intubated overnight, was tachypneic with RR @ 60. Patient was sedated in the morning, unresponsive to examiner. OBJECTIVE: Vital Signs Period Temp Pulse Resp BP Sys/Linares Pulse Ox Last 24 Hr 98.9 F-102.3 F 67-117 12-36 98-115/51-73 100-100 GENERAL: Sedated, intubated. HEAD: Normocephalic EARS, NOSE, THROAT: Copious amounts of secretions. LUNGS: Rhonchi present bilaterally. HEART: Regular rate and rhythm, normal S1 and S2 without murmur, rub or gallop. ABDOMEN: PEG tube present, no erythema around site. mild distension. Soft, nontender, normoactive bowel sounds, no guarding, no rebound, no masses. . MUSCULOSKELETAL:Patient currently contracted. UPPER EXTREMITIES: 2+ pulses, warm, well-perfused. No cyanosis. No clubbing. Cap refill <2 seconds. No peripheral edema. LOWER EXTREMITIES: 2+ pulses, warm, well-perfused. No calf tenderness. No peripheral edema. NEUROLOGICAL: Unable to assess. SKIN: Maculopapular rash on chest. Laboratory Results - last 24 hr 06/16/19 06/17/19 06/17/19 23:15 01:10 05:50 WBC RBC Hgb Hct MCV MCH MCHC RDW Plt Count MPV Absolute Neuts (auto) Neutrophils % Lymphocytes % Monocytes % Eosinophils % Basophils % Nucleated RBC % Anticoagulation Therapy No Result Required. No Result Required. Puncture Site Left radial Right radial ABG pH 7.45 7.46 H ABG pCO2 at Pt Temp 37.5 39.2 ABG pO2 at Pt Temp 65.0 L 154 H ABG HCO3 25.9 27.3 H ABG O2 Sat (Measured) 93.4 L 99.1 H ABG O2 Content 15.2 18.0 ABG Base Excess 2.4 H 3.7 H Kaushal Test Positive Positive O2 Delivery Device Nrm Vent Oxygen Flow Rate 100% 40% Vent Mode No Result Required. A/c Vent Rate No Result Required. 12 Mechanical Rate No Result Required. Yes PEEP 5.0 Pressure Support Vent No Result Required. 350 Sodium Potassium Chloride Carbon Dioxide Anion Gap BUN Creatinine Est GFR (CKD-EPI)AfAm Est GFR (CKD-EPI)NonAf Random Glucose Calcium Phosphorus Magnesium Total Bilirubin AST ALT Alkaline Phosphatase Total Protein Albumin Urine Color Yellow Urine Appearance Clear Urine pH 8.5 H Ur Specific [place] 1.032 Urine Protein Negative Urine Glucose (UA) Negative Urine Ketones Negative Urine Blood Negative Urine Nitrite Negative Urine Bilirubin Negative Urine Urobilinogen 1.0 Ur Leukocyte Esterase Negative 06/17/19 06/17/19 06:05 06:05 WBC 13.0 H RBC 3.47 L Hgb 11.9 Hct 34.2 L MCV 98.8 H MCH 34.3 H MCHC 34.7 RDW 13.9 Plt Count 316 MPV 9.0 Absolute Neuts (auto) 10.3 H Neutrophils % 79.4 D Lymphocytes % 14.8 D Monocytes % 5.5 Eosinophils % 0.1 Basophils % 0.2 Nucleated RBC % 0 Anticoagulation Therapy Puncture Site ABG pH ABG pCO2 at Pt Temp ABG pO2 at Pt Temp ABG HCO3 ABG O2 Sat (Measured) ABG O2 Content ABG Base Excess Kaushal Test O2 Delivery Device Oxygen Flow Rate Vent Mode Vent Rate Mechanical Rate PEEP Pressure Support Vent Sodium 138 Potassium 3.6 Chloride 105 Carbon Dioxide 27 Anion Gap 6 L BUN 6.6 L Creatinine 0.6 Est GFR (CKD-EPI)AfAm 164.25 Est GFR (CKD-EPI)NonAf 141.72 Random Glucose 90 Calcium 8.8 Phosphorus 3.0 Magnesium 2.1 Total Bilirubin 0.3 AST 25 ALT 35 Alkaline Phosphatase 150 H Total Protein 7.1 Albumin 3.0 L Urine Color Urine Appearance Urine pH Ur Specific [place] Urine Protein Urine Glucose (UA) Urine Ketones Urine Blood Urine Nitrite Urine Bilirubin Urine Urobilinogen Ur Leukocyte Esterase Active Medications Generic Name Dose Route Start Last Admin Trade Name Debbie PRN Reason Stop Dose Admin Acetaminophen 750 mg 06/17/19 06:19 Ofirmev Injection - IVPB 06/18/19 06:19 Q6H PRN FEVER Acyclovir 400 mg 06/11/19 22:00 06/17/19 09:21 Zovirax Oral Suspension - GT 400 mg BID JORGE Administration Albuterol Sulfate 1 amp 06/13/19 14:31 06/17/19 07:30 Ventolin 0.083% Nebulizer Soln - NEB 1 amp Q6H PRN Administration WHEEZING Bacitracin 1 applic 06/11/19 22:00 06/17/19 09:35 Bacitracin - TP 1 applic BID JORGE Administration Baclofen 10 mg 06/11/19 22:00 06/17/19 09:25 Lioresal - GT 10 mg BID JORGE Administration Chlorhexidine Gluconate 1 applic 06/11/19 22:00 06/16/19 21:33 Hibiclens For Decolonization - TP 1 applic HS JORGE Administration Clobazam 10 mg 06/11/19 22:00 06/16/19 21:32 Onfi - GT 10 mg HS JORGE Administration Clobazam 5 mg 06/12/19 10:00 06/17/19 09:26 Onfi - GT 5 mg DAILY JORGE Administration Clonazepam 1.5 mg 06/11/19 22:00 06/17/19 06:29 Klonopin - GT 1.5 mg TID JORGE Administration Famotidine 10 mg 06/11/19 22:00 06/17/19 09:23 Pepcid NGT 10 mg BID JORGE Administration Fluticasone Propionate 2 spray 06/12/19 07:00 06/17/19 06:30 Flonase - NS 2 sprays AM JORGE Administration Heparin Sodium (Porcine) 5,000 unit 06/11/19 14:00 06/17/19 06:29 Heparin - SQ 5,000 unit TID JORGE Administration Piperacillin Sod/Tazobactam 50 mls @ 100 mls/hr 06/13/19 08:00 06/17/19 09:20 Sod 3.375 gm/ Dextrose IVPB 100 mls/hr Q8H-IV JORGE Administration Protocol Lactated Ringer's 1,000 ml in 1,000 mls @ 75 mls/hr 06/14/19 15:30 06/16/19 17:23 Lactated Ringers Solution IV 75 mls/hr ASDIR JORGE Administration Dexmedetomidine HCl 200 mcg/ 50 mls @ 4.05 mls/hr 06/17/19 01:30 06/17/19 06: 30 Sodium Chloride IVPB Not Given TITR JORGE 0.4 MCG/KG/HR Propofol 1,000,000 mcg in 100 mls @ 1.215 mls/hr 06/17/19 01:45 06/17/19 02: 36 Diprivan - IVPB 20 mcg/kg/min TITR JORGE 4.861 mls/hr Administration Protocol 5 MCG/KG/MIN Lactobacillus Acidophilus 1 tab 06/11/19 22:00 06/16/19 21:32 Bacid - GT 1 tab HS JORGE Administration Lamotrigine 200 mg 06/11/19 22:00 06/17/19 09:25 Lamictal - PO 200 mg BID JORGE Administration Magnesium Hydroxide 20 ml 06/11/19 22:00 06/17/19 09:25 Milk Of Magnesia - GT 20 ml BID JORGE Administration Multivitamins/Minerals 15 ml 06/11/19 22:00 06/16/19 21:32 Certavite-Antioxidant Liquid GT 15 ml HS JORGE Administration Phenobarbital 45 mg 06/15/19 13:00 06/17/19 10:12 Phenobarbital Liquid - PO 45 mg BID JORGE Administration Sodium Chloride 2 spray 06/11/19 22:00 06/17/19 09:26 [place] [employer] - NS 2 spray BID JORGE Administration ASSESSMENT/PLAN: 24M PMH CP, epilepsy, herpes encephalitis, GERD, and aspiration pneumonia discharged from [facility] 2 days ago after being treated for sepsis secondary to PNA and flu requiring intubation. Neuro -Patient has hx of CP and epilepsy -Continue home medications: diazepam, clobazam, clonazepam, lamictal, phenobarbital, -Propofol drip and precedex. -Daily sedation vacations Cardiovascular -Pt was noted to have be bradycardic during previous admission on cardiac monitoring -EKG did not show any acute changes. Qtc of 432. -Titrate propofol to avoid bradycardia -Continous cardiac monitoring Pulmonary -Acute hypoxic respiratory failure -Wean trials daily -Was reintubated overnight. -Patient is currently intubated, vent setting: Vt: 350, RR 14, Fio2: 40% PEEP: 5 GI -Patient has PEG tube. -Tube feed Promote. -No acute issues, will continue to monitor Renal -Hematuria on UA. Likely a result of trauma from straight cath. -Monitor electrolytes and replete PRN ID -Pt has hx of herpes encephalitis -Continue alcyclovir -Given genta, azithro, and zosyn in ED -Continue zoysn -F/U cultures F:75 ml/hr LR E: Monitor CMP N: Promote Tube Feed Lines: Intubated 06/17/2019. Dispo: We will continue to follow the patient. Thank you for this consultative opportunity. Visit type - Emergency Visit Emergency Visit: Yes ED Registration Date: 06/11/19 Care time: The patient presented to the Emergency Department on the above date and was hospitalized for further evaluation of their emergent condition. - New Patient This patient is new to me today: No - Critical Care Critical Care patient: Yes Total Critical Care Time (in minutes): 35 Critical Care Statement: The care of this patient involved high complexity decision making to prevent further life threatening deterioration of the patient 's condition and/or to evaluate & treat vital organ system(s) failure or risk of failure. ATTENDING PHYSICIAN STATEMENT I saw and evaluated the patient. I reviewed the resident's note and discussed the case with the resident. I agree with the resident's findings and plan as documented. SUBJECTIVE: OBJECTIVE: ASSESSMENT AND PLAN:
[2019-06-17] MEDS: LACTATED RINGERS SOLUTION 1,000 ML/1,000 ML INFUS.BAG IV SCH (12:00)
--- NOTE | 2019-06-17 15:44 | PN ---
Physical Exam: SUBJECTIVE: Patient seen and examined. Was extubated around 12:44 AM and within an hour was extubated de to desatted and tachypnea due to increased secretions. OBJECTIVE: Vital Signs Period Temp Pulse Resp BP Sys/Linares Pulse Ox Last 24 Hr 98.6 F-102.3 F 67-113 12-36 92-115/51-73 100-100 GENERAL: The patient is intubated and sedated NECK: supple. LUNGS: Breath sounds equal, clear to auscultation bilaterally, no wheezes, no crackles, no accessory muscle use. HEART: asad and regular rhythm, S1, S2 without murmur, rub or gallop. ABDOMEN: Soft, nontender, nondistended EXTREMITIES: 2+ pulses, warm, well-perfused, no edema. NEUROLOGICAL: Cranial nerves II through XII grossly intact. Normal speech Laboratory Results - last 24 hr 06/16/19 06/17/19 06/17/19 23:15 01:10 05:50 WBC RBC Hgb Hct MCV MCH MCHC RDW Plt Count MPV Absolute Neuts (auto) Neutrophils % Lymphocytes % Monocytes % Eosinophils % Basophils % Nucleated RBC % Anticoagulation Therapy No Result Required. No Result Required. Puncture Site Left radial Right radial ABG pH 7.45 7.46 H ABG pCO2 at Pt Temp 37.5 39.2 ABG pO2 at Pt Temp 65.0 L 154 H ABG HCO3 25.9 27.3 H ABG O2 Sat (Measured) 93.4 L 99.1 H ABG O2 Content 15.2 18.0 ABG Base Excess 2.4 H 3.7 H Kaushal Test Positive Positive O2 Delivery Device Nrm Vent Oxygen Flow Rate 100% 40% Vent Mode No Result Required. A/c Vent Rate No Result Required. 12 Mechanical Rate No Result Required. Yes PEEP 5.0 Pressure Support Vent No Result Required. 350 Sodium Potassium Chloride Carbon Dioxide Anion Gap BUN Creatinine Est GFR (CKD-EPI)AfAm Est GFR (CKD-EPI)NonAf Random Glucose Calcium Phosphorus Magnesium Total Bilirubin AST ALT Alkaline Phosphatase Total Protein Albumin Urine Color Yellow Urine Appearance Clear Urine pH 8.5 H Ur Specific [place] 1.032 Urine Protein Negative Urine Glucose (UA) Negative Urine Ketones Negative Urine Blood Negative Urine Nitrite Negative Urine Bilirubin Negative Urine Urobilinogen 1.0 Ur Leukocyte Esterase Negative 02/07/20 02/07/20 06:05 06:05 WBC 13.0 H RBC 3.47 L Hgb 11.9 Hct 34.2 L MCV 98.8 H MCH 34.3 H MCHC 34.7 RDW 13.9 Plt Count 316 MPV 9.0 Absolute Neuts (auto) 10.3 H Neutrophils % 79.4 D Lymphocytes % 14.8 D Monocytes % 5.5 Eosinophils % 0.1 Basophils % 0.2 Nucleated RBC % 0 Anticoagulation Therapy Puncture Site ABG pH ABG pCO2 at Pt Temp ABG pO2 at Pt Temp ABG HCO3 ABG O2 Sat (Measured) ABG O2 Content ABG Base Excess Kaushal Test O2 Delivery Device Oxygen Flow Rate Vent Mode Vent Rate Mechanical Rate PEEP Pressure Support Vent Sodium 138 Potassium 3.6 Chloride 105 Carbon Dioxide 27 Anion Gap 6 L BUN 6.6 L Creatinine 0.6 Est GFR (CKD-EPI)AfAm 164.25 Est GFR (CKD-EPI)NonAf 141.72 Random Glucose 90 Calcium 8.8 Phosphorus 3.0 Magnesium 2.1 Total Bilirubin 0.3 AST 25 ALT 35 Alkaline Phosphatase 150 H Total Protein 7.1 Albumin 3.0 L Urine Color Urine Appearance Urine pH Ur Specific [place] Urine Protein Urine Glucose (UA) Urine Ketones Urine Blood Urine Nitrite Urine Bilirubin Urine Urobilinogen Ur Leukocyte Esterase Active Medications Generic Name Dose Route Start Last Admin Trade Name Freq PRN Reason Stop Dose Admin Acetaminophen 750 mg 06/17/19 06:19 Ofirmev Injection - IVPB 06/18/19 06:19 Q6H PRN FEVER Acyclovir 400 mg 06/11/19 22:00 06/17/19 09:21 Zovirax Oral Suspension - GT 400 mg BID JORGE Administration Albuterol Sulfate 1 amp 06/13/19 14:31 06/17/19 07:30 Ventolin 0.083% Nebulizer Soln - NEB 1 amp Q6H PRN Administration WHEEZING Bacitracin 1 applic 06/11/19 22:00 06/17/19 09:35 Bacitracin - TP 1 applic BID JORGE Administration Baclofen 10 mg 06/11/19 22:00 06/17/19 09:25 Lioresal - GT 10 mg BID JORGE Administration Chlorhexidine Gluconate 1 applic 06/11/19 22:00 06/16/19 21:33 Hibiclens For Decolonization - TP 1 applic HS JORGE Administration Clobazam 10 mg 06/11/19 22:00 06/16/19 21:32 Onfi - GT 10 mg HS JORGE Administration Clobazam 5 mg 06/12/19 10:00 06/17/19 09:26 Onfi - GT 5 mg DAILY JORGE Administration Clonazepam 1.5 mg 06/11/19 22:00 06/17/19 13:11 Klonopin - GT 1.5 mg TID JORGE Administration Famotidine 10 mg 06/11/19 22:00 06/17/19 09:23 Pepcid NGT 10 mg BID JORGE Administration Fluticasone Propionate 2 spray 06/12/19 07:00 06/17/19 06:30 Flonase - NS 2 sprays AM JORGE Administration Heparin Sodium (Porcine) 5,000 unit 06/11/19 14:00 06/17/19 13:09 Heparin - SQ 5,000 unit TID JORGE Administration Piperacillin Sod/Tazobactam 50 mls @ 100 mls/hr 06/13/19 08:00 06/17/19 09:20 Sod 3.375 gm/ Dextrose IVPB 100 mls/hr Q8H-IV JORGE Administration Protocol Lactated Ringer's 1,000 ml in 1,000 mls @ 75 mls/hr 06/14/19 15:30 06/16/19 17:23 Lactated Ringers Solution IV 75 mls/hr ASDIR JORGE Administration Dexmedetomidine HCl 200 mcg/ 50 mls @ 4.05 mls/hr 06/17/19 01:30 06/17/19 06: 30 Sodium Chloride IVPB Not Given TITR JORGE 0.4 MCG/KG/HR Propofol 1,000,000 mcg in 100 mls @ 1.215 mls/hr 06/17/19 01:45 06/17/19 02: 36 Diprivan - IVPB 20 mcg/kg/min TITR JORGE 4.861 mls/hr Administration Protocol 5 MCG/KG/MIN Lactobacillus Acidophilus 1 tab 06/11/19 22:00 06/16/19 21:32 Bacid - GT 1 tab HS JORGE Administration Lamotrigine 200 mg 06/11/19 22:00 06/17/19 09:25 Lamictal - PO 200 mg BID JORGE Administration Magnesium Hydroxide 20 ml 06/11/19 22:00 06/17/19 09:25 Milk Of Magnesia - GT 20 ml BID JORGE Administration Multivitamins/Minerals 15 ml 06/11/19 22:00 06/16/19 21:32 Certavite-Antioxidant Liquid GT 15 ml HS JORGE Administration Phenobarbital 45 mg 06/15/19 13:00 06/17/19 10:12 Phenobarbital Liquid - PO 45 mg BID JORGE Administration Sodium Chloride 2 spray 06/11/19 22:00 06/17/19 09:26 [place] Nasal [place] - NS 2 spray BID JORGE Administration ASSESSMENT/PLAN: Images: - CXR showing ? left side infiltrate vs atelectasis in retrocardiac area - CT chest- residual L>R patchy ground glass opacities in Lt and to lesser extent rt lung may reperesent infiltrates, moderately distended colon with air. This is a 24 y/o M from [place] with hx of CP, epilepsy, herpes encephalitis, GERD, and aspiration pneumonia recently discharged from [facility] 2 days ago after being treated for sepsis 2/2 PNA and flu requiring intubation and ICU admission. Pt presenting with SOB and new oxygen requirements. Pt satting 98% on 4LNC with profuse coughing. Per chart from [place], pt O2 sat was at 85% on RA, but after 4L O2 it improved to 93%, with a pulse of 125, RR of 60/min. #Acute Hypoxic Respiratory failure with sepsis 2/2 likely aspiration PNA - possible weaning trial today for extubation - ICU team monitoring - continue zosyn day 5 per ID, CXR- showing improvement in infiltrate. Spiked a 100.8 fever overnight will await cultures and ID recs on abx. - keep SaO2 >90% on vent settings - MRSA nares negative - ID (Dr Harrison) on case - UA legionella, strep PNA negative #Hypokalemia - resolved can stop the addition of K to fluids. - LR 75 cc/hr #Seizure disorder - continue anti-seizure regimen - Clonazepam, Lamotrigene, Phenobarbital #Hx of herpes Encephalitis - maintained on Acyclovir # Recent elevation in transaminases ? sepsis related/Abx related US Abdo - no acute pathology. wnl now DVT: Hep 5K TID Visit type - Emergency Visit Emergency Visit: Yes ED Registration Date: 06/11/19 Care time: The patient presented to the Emergency Department on the above date and was hospitalized for further evaluation of their emergent condition. - New Patient This patient is new to me today: No - Critical Care Critical Care patient: Yes Total Critical Care Time (in minutes): 35 Critical Care Statement: The care of this patient involved high complexity decision making to prevent further life threatening deterioration of the patient 's condition and/or to evaluate & treat vital organ system(s) failure or risk of failure. - Discharge Referral Referred to [facility] Med P.C.: No ATTENDING PHYSICIAN STATEMENT I saw and evaluated the patient. I reviewed the resident's note and discussed the case with the resident. I agree with the resident's findings and plan as documented. SUBJECTIVE: OBJECTIVE: ASSESSMENT AND PLAN:
--- NOTE | 2019-06-17 16:09 | PN ---
Progress Note, Physician History of Present Illness: EXTUBATED, RE-INTUBATED NO ACUTE DISTRESS ON VENTILATOR TEMP SPIKE 102.3 WBC ELEVATED 13 BC OBTAINED STAT DOSES VANCO/ ZITHROMAX GIVEN - Current Medication List Current Medications: Active Medications Acetaminophen (Ofirmev Injection -) 750 mg IVPB Q6H PRN PRN Reason: FEVER Stop: 06/18/19 06:19 Acyclovir (Zovirax Oral Suspension -) 400 mg GT BID JORGE Last Admin: 06/17/19 09:21 Dose: 400 mg Albuterol Sulfate (Ventolin 0.083% Nebulizer Soln -) 1 amp NEB Q6H PRN PRN Reason: WHEEZING Last Admin: 06/17/19 07:30 Dose: 1 amp Bacitracin (Bacitracin -) 1 applic TP BID JORGE Last Admin: 06/17/19 09:35 Dose: 1 applic Baclofen (Lioresal -) 10 mg GT BID JORGE Last Admin: 06/17/19 09:25 Dose: 10 mg Chlorhexidine Gluconate (Hibiclens For Decolonization -) 1 applic TP HS JORGE Last Admin: 06/16/19 21:33 Dose: 1 applic Clobazam (Onfi -) 10 mg GT HS JORGE Last Admin: 06/16/19 21:32 Dose: 10 mg Clobazam (Onfi -) 5 mg GT DAILY REPLACED BY [facility] Last Admin: 06/17/19 09:26 Dose: 5 mg Clonazepam (Klonopin -) 1.5 mg GT TID REPLACED BY [facility] Last Admin: 06/17/19 13:11 Dose: 1.5 mg Famotidine (Pepcid) 10 mg NGT BID REPLACED BY [facility] Last Admin: 06/17/19 09:23 Dose: 10 mg Fluticasone Propionate (Flonase -) 2 spray NS AM JORGE Last Admin: 06/17/19 06:30 Dose: 2 sprays Heparin Sodium (Porcine) (Heparin -) 5,000 unit SQ TID JORGE Last Admin: 06/17/19 13:09 Dose: 5,000 unit Piperacillin Sod/Tazobactam (Sod 3.375 gm/ Dextrose) 50 mls @ 100 mls/hr IVPB Q8H-IV JORGE; Protocol Last Admin: 06/17/19 09:20 Dose: 100 mls/hr Lactated Ringer's (Lactated Ringers Solution) 1,000 ml in 1,000 mls @ 75 mls/ hr IV ASDIR JORGE Last Admin: 06/16/19 17:23 Dose: 75 mls/hr Dexmedetomidine HCl 200 mcg/ (Sodium Chloride) 50 mls @ 4.05 mls/hr IVPB TITR JORGE Last Admin: 06/17/19 06:30 Dose: Not Given Propofol (Diprivan -) 1,000,000 mcg in 100 mls @ 1.215 mls/hr IVPB TITR REPLACED BY [facility]; Protocol Last Admin: 06/17/19 02:36 Dose: 20 mcg/kg/min, 4.861 mls/hr Lactobacillus Acidophilus (Bacid -) 1 tab GT HS REPLACED BY [facility] Last Admin: 06/16/19 21:32 Dose: 1 tab Lamotrigine (Lamictal -) 200 mg PO BID REPLACED BY [facility] Last Admin: 06/17/19 09:25 Dose: 200 mg Magnesium Hydroxide (Milk Of Magnesia -) 20 ml GT BID REPLACED BY [facility] Last Admin: 06/17/19 09:25 Dose: 20 ml Multivitamins/Minerals (Certavite-Antioxidant Liquid) 15 ml GT HS REPLACED BY [facility] Last Admin: 06/16/19 21:32 Dose: 15 ml Phenobarbital (Phenobarbital Liquid -) 45 mg PO BID REPLACED BY [facility] Last Admin: 06/17/19 10:12 Dose: 45 mg Sodium Chloride ([place] Nasal [place] -) 2 spray NS BID REPLACED BY [facility] Last Admin: 06/17/19 09:26 Dose: 2 spray - Objective Vital Signs: Vital Signs Temperature 99.6 F 06/17/19 14:00 Pulse Rate 68 06/17/19 14:00 Respiratory Rate 12 06/17/19 14:00 Blood Pressure 92/52 L 06/17/19 14:00 O2 Sat by Pulse Oximetry (%) 100 06/17/19 11:36 Constitutional: Yes: No Distress Cardiovascular: Yes: Regular Rate and Rhythm, S1, S2 Respiratory: Yes: Mechanically Ventilated Gastrointestinal: Yes: Normal Bowel Sounds, Soft. No: Tenderness Labs: CBC, BMP 06/17/19 06:05 06/17/19 06:05 INR, PTT INR 1.13 (0.83-1.09) H 06/11/19 11:10 Assessment/Plan RESP FAILURE PNEUMONIA ? RECURRENT ASPIRATION FEVER/ LEUKOCYTOSIS S/P RECENT INFLUENZA CONTINUE ZOSYN AWAIT REPEAT VENTILATORY SUPPORT
[2019-06-17] MEDS ORDERED: DOCUSATE SODIUM 100 MG CAPSULE (FP) PO SCH (20:00)
[2019-06-17] MEDS: POLYETHYLENE GLYCOL 3350 119 GM BTL PO SCH (21:25)
[2019-06-17] MEDS: LACTOBACILLUS ACIDOPHILUS 1 TABLET GT SCH (21:25)
[2019-06-17] MEDS: MULTIVIT-MINERALS ORAL LIQUID GT SCH (21:26)
[2019-06-17] MEDS: CHLORHEXIDINE GLUCONATE 4% CLEANSER FOR DECOLONIZATION TP SCH (21:27)
[2019-06-17] MEDS ORDERED: DOCUSATE NA 100 MG/10 ML UNIT-DOSE CUPS PO PRN (21:53)
[2019-06-18] MEDS ORDERED: DEXTROSE 5%-WATER - 50 ML IVPB ONE ×3 (02:34→17:13)
[2019-06-18] MEDS ORDERED: PIPERACILLIN/TAZOBACTAM 3.375 GM VIAL IVPB ONE ×3 (02:34→17:12)
[2019-06-18] MEDS: PIPERACILLIN/TAZOB 3.375 GM 3.375 GM in DEXTROSE 5%-WATER - 50 ML IVPB SCH ×3 (02:46→17:15)
[2019-06-18] MEDS: PROPOFOL 1,000,000 MCG/100 ML VIAL IVPB SCH ×2 (02:47→19:30)
[2019-06-18] MEDS: HEPARIN NA (PORCINE) 5,000 UNITS/ML 1ML VIAL SQ SCH ×3 (05:46→22:12)
[2019-06-18] MEDS: clonazePAM 0.5 MG TABLET GT SCH ×3 (05:46→22:13)
[2019-06-18] MEDS: FLUTICASONE PROP 0.05% 16 GM NASAL SPRAY NS SCH (06:14)
[2019-06-18 07:02] LABS: BASO % 0.6 % (0-2.0); EOS % 0.3 % (0-4.5); HEMATOCRIT 30.2 % (35.4-49); HEMOGLOBIN 10.6 GM/dL (11.7-16.9); LYMPH % 35.9 % (8-40); MCH 34.7 pg (25.7-33.7); MEAN CELL VOLUME 99.3 fl (80-96); MEAN PLT VOLUME 9.3 fl (7.5-11.1); NEUT % 55.2 % (42.8-82.8); PLATELET COUNT 312 K/MM3 (134-434); RBC 3.04 M/mm3 (4.00-5.60); WHITE BLOOD COUNT 7.1 K/mm3 (4.0-10.0)
--- NOTE | 2019-06-18 07:09 | PN ---
Teaching Attending Note Name of Resident: Nash Kennedy ATTENDING STATEMENT I saw and evaluated the patient. I reviewed the resident's note and discussed the case with the resident. I agree with the resident's findings and plan as documented. Seen and examined; please see resident note for further historical information. I personally verified all alvarez historical information and exam findings. Personally interpreted all imaging and diagnostics and reviewed appropriate consults. I reviewed all labs and vital signs as per resident note and EMR as documented. I agree with the above assessment and plan unless supplemented by myself in the following. Reintubated as per events dictated in resident note. Defer majority of care to ICU team. Will work to wean off the vent, addressing sedation 10 item review of systems completed and is negative aside from as discussed in the subjective data in my own/the resident documentation. VS, labs, imaging reviewed Intubated and sedated on ventillator resting in bed, vent settings per flowsheet ET Tube in place; IV access noted with no apparent surrounding cellulitis RRR s1/2 no mgr Normal muscle tone, moves all 5 extremities with normal apparent strength Neck is supple, trachea midline, no [place] LN Lungs CTAB with sym expansion NT ND +BS no [place] organomegaly CN2-12 wnl; no FND but limited given clinical circumstances. NC AT EOMI PERRLA Not agitated, cannot complete full psych assessment No skin breakdown or rashes noted Assessment and plan: Patient presents with acute hypoxic respiratory failure likely secondary to acute aspiration pneumonia which is secondary to his dysphagia due to his ongoing issues with chronic medical problems. He is on inhaled bronchodilators with FiO2 being tapered to keep the SPO2 greater than 90% as per the ICU team. We will resume spontaneous breathing trials once secretions are decreased. He remains on broad-spectrum antibiotics and his home antiepileptic drugs. *He has continued issues with extubation. We will reattempt with additional sedation. Vent records per ICU flowsheet. Patient has a guarded prognosis. Problems include: Acute hypoxic respiratory failure secondary to aspiration pneumonia Sepsis secondary to aspiration pneumonia Seizure disorder, on home medications, no seizure activity noted Mental Retardation, cerebral palsy GERD
[2019-06-18 07:27] LABS: ALBUMIN 2.7 g/dl (3.4-5.0); BILIRUBIN,TOTAL 0.3 mg/dL (0.2-1); CALCIUM 8.7 mg/dL (8.5-10.1); CREATININE 0.5 mg/dL (0.55-1.3); PHOSPHOROUS 3.9 mg/dL (2.5-4.9); POTASSIUM 4.2 mmol/L (3.5-5.1); TOT PROT 6.7 g/dl (6.4-8.2)
--- NOTE | 2019-06-18 07:27 | PN ---
Progress Note (short form) - Note Progress Note: PULM/CCM Pt seen & examined in the ICU. Pt is intubated and sedated on the Vent satting 100% on AC/VC/12/350/40%/+5. Active Medications Acyclovir (Zovirax Oral Suspension -) 400 mg GT BID JORGE Last Admin: 06/18/19 09:31 Dose: 400 mg Albuterol Sulfate (Ventolin 0.083% Nebulizer Soln -) 1 amp NEB Q6H PRN PRN Reason: WHEEZING Last Admin: 06/17/19 07:30 Dose: 1 amp Bacitracin (Bacitracin -) 1 applic TP BID JORGE Last Admin: 06/18/19 09:39 Dose: 1 applic Baclofen (Lioresal -) 10 mg GT BID JORGE Last Admin: 06/18/19 09:34 Dose: 10 mg Chlorhexidine Gluconate (Hibiclens For Decolonization -) 1 applic TP HS JORGE Last Admin: 06/17/19 21:27 Dose: 1 applic Clobazam (Onfi -) 10 mg GT HS [facility]OR[facility] Last Admin: 06/17/19 21:28 Dose: 10 mg Clobazam (Onfi -) 5 mg GT DAILY JORGE Last Admin: 06/18/19 09:25 Dose: 5 mg Clonazepam (Klonopin -) 1.5 mg GT TID JORGE Last Admin: 06/18/19 05:46 Dose: 1.5 mg Docusate Sodium (Colace Liquid -) 100 mg PO DAILY PRN PRN Reason: CONSTIPATION Last Admin: 06/18/19 09:35 Dose: 100 mg Famotidine (Pepcid) 10 mg NGT BID JORGE Last Admin: 06/18/19 09:31 Dose: 10 mg Fluticasone Propionate (Flonase -) 2 spray NS AM JORGE Last Admin: 06/18/19 06:14 Dose: 2 sprays Heparin Sodium (Porcine) (Heparin -) 5,000 unit SQ TID JORGE Last Admin: 06/18/19 05:46 Dose: 5,000 unit Piperacillin Sod/Tazobactam (Sod 3.375 gm/ Dextrose) 50 mls @ 100 mls/hr IVPB Q8H-IV JORGE; Protocol Last Admin: 06/18/19 09:26 Dose: 100 mls/hr Lactated Ringer's (Lactated Ringers Solution) 1,000 ml in 1,000 mls @ 75 mls/ hr IV ASDIR JORGE Last Admin: 06/17/19 12:00 Dose: 75 mls/hr Propofol (Diprivan -) 1,000,000 mcg in 100 mls @ 1.215 mls/hr IVPB TITR JORGE; Protocol Last Admin: 06/18/19 02:47 Dose: 20 mcg/kg/min, 4.861 mls/hr Lactobacillus Acidophilus (Bacid -) 1 tab GT HS [facility] Last Admin: 06/17/19 21:25 Dose: 1 tab Lamotrigine (Lamictal -) 200 mg PO BID [facility] Last Admin: 06/18/19 09:34 Dose: 200 mg Magnesium Hydroxide (Milk Of Magnesia -) 20 ml GT BID [facility] Last Admin: 06/18/19 09:33 Dose: 20 ml Multivitamins/Minerals (Certavite-Antioxidant Liquid) 15 ml GT HS [facility] Last Admin: 06/17/19 21:26 Dose: 15 ml Phenobarbital (Phenobarbital Liquid -) 45 mg PO BID [facility] Last Admin: 06/18/19 09:28 Dose: 45 mg Polyethylene Glycol (Miralax (For Daily Use) -) 17 gm PO DAILY [facility] Last Admin: 06/18/19 09:40 Dose: 17 grams Sodium Chloride ([place] Nasal [place] -) 2 spray NS BID [facility] Last Admin: 06/18/19 09:32 Dose: 2 spray Vital Signs Period Temp Pulse Resp BP Sys/Linares Pulse Ox Last 24 Hr 99 F-99.7 F 51-75 12-147 92-114/44-70 97-100 Intake & Output 06/15/19 06/16/19 06/17/19 06/18/19 23:59 23:59 23:59 23:59 Intake Total 2365.6 1374.1 2126 950 Output Total 1800 4500 2300 1400 Balance 565.6 -3125.9 -174 -450 Weight 39.599 kg 40.511 kg 40.511 kg 40.8 kg GEN: 24 y/o man fxnal quad 2/2 CP, sedated, intubated PULM: Vented, bilateral scattered rhonchi, dimished at the bases CV: nml S1 S2, RR, unable to appreciate any G/M/R ABD: + BS, PEG, S/S N/T N/D X4Q EXT: contracted, + Pulses, WWPX4, (-) edema CBC, BMP 06/18/19 05:36 06/18/19 05:36 Microbiology 06/16/19 22:20 Urine - Urine - Catheterized Urine Culture - Final NO GROWTH OBTAINED 06/16/19 21:30 Blood - Peripheral Venous Blood Culture - Preliminary NO GROWTH OBTAINED AFTER 24 HOURS, INCUBATION TO CONTINUE FOR 4 DAYS. 06/16/19 21:30 Blood - Peripheral Venous Blood Culture - Preliminary NO GROWTH OBTAINED AFTER 24 HOURS, INCUBATION TO CONTINUE FOR 4 DAYS. 06/13/19 16:00 Blood - Peripheral Venous Blood Culture - Preliminary NO GROWTH OBTAINED AFTER 96 HOURS, INCUBATION TO CONTINUE FOR 1 DAYS. 06/13/19 15:40 Blood - Peripheral Venous Blood Culture - Preliminary NO GROWTH OBTAINED AFTER 96 HOURS, INCUBATION TO CONTINUE FOR 1 DAYS. 06/16/19 22:00 Sputum - Oropharynx Suctioned Sputum Gram Stain - Final 06/17/19 03:00 Urine - Urine Lane Legionella Antigen - Final 06/17/19 03:00 Urine - Urine Lane Streptococcus pneumoniae Antigen (M - Final 06/11/19 10:30 Blood - Peripheral Venous Blood Culture - Final Staphylococcus Epidermidis 06/11/19 10:30 Blood - Peripheral Venous Blood Culture - Final NO GROWTH AFTER 5 DAYS INCUBATION 06/12/19 08:00 Sputum - Endotrachea Suction/Ventilator Gram Stain - Final 06/12/19 08:00 Sputum - Endotrachea Suction/Ventilator Sputum Culture - Final Pseudomonas Aeruginosa 06/12/19 23:20 Nares - Mrsa Screen - Left MRSA Screen - Final NO MRSA ISOLATED 06/12/19 23:20 Nares - Right Nares MRSA Screen - Final NO MRSA ISOLATED 06/12/19 11:30 Urine For Antigen Detection Legionella Antigen - Final 06/12/19 11:30 Urine For Antigen Detection Streptococcus pneumoniae Antigen (M - Final 06/11/19 10:50 Urine - Urine - Catheterized Urine Culture - Final NO GROWTH OBTAINED RECENT STUDIES TO NOTE: CTA CHEST 06/17: No CT evidence of pulmonary embolism. Mild bilateral upper lower lung field groundglass parenchymal attenuation is noted which may be due to small airway disease. 3 x 2.4 cm left adrenal nodule as noted above. There is partial imaging of a 0.5 x 1.4 cm right perirenal structure as discussed above. ASSESS: Acute Hypoxic Respiratory Failure Pneumonia likely Aspiration Bacteremia Cerebral Palsy Mental Retardation Seizure Disorder GERD Anemia PLAN: - Cont Vent Support - Nebs - Wean FiO2 as tolerated - Wean trials as tolerated - Continue antibiotics - Cont AED's - Strict I's & O's - Trend BUN/Cr - Replete e-lyets prn - TFs - DVT/GI prophylaxis - continue ICU monitoring [facility] ICU PULM/CCM [id number]
[2019-06-18] MEDS ORDERED: PT OWN MED DRAWER 7, Y5N ONE ×2 (09:10→21:33)
[2019-06-18] MEDS: cloBAZam 10 MG TABLET GT SCH ×2 (09:25→22:12)
--- NOTE | 2019-06-18 09:26 | PN ---
Physical Exam: SUBJECTIVE: Patient seen and examined 10 sys ROS not able to be completed due to ongoing clinical issues. OBJECTIVE: Vital Signs Period Temp Pulse Resp BP Sys/Linares Pulse Ox Last 24 Hr 98.6 F-99.7 F 51-80 12-147 92-114/44-70 97-100 VS, labs, imaging reviewed Intubated and sedated on ventillator resting in bed, vent settings per flowsheet ET Tube in place; IV access noted with no apparent surrounding cellulitis RRR s1/2 no mgr Normal muscle tone, moves all 5 extremities with normal apparent strength Neck is supple, trachea midline, no [place] LN Lungs CTAB with sym expansion NT ND +BS no [place] organomegaly CN2-12 wnl; no FND but limited given clinical circumstances. NC AT EOMI PERRLA Not agitated, cannot complete full psych assessment No skin breakdown or rashes noted Laboratory Results - last 24 hr 06/18/19 06/18/19 05:36 05:36 WBC 7.1 RBC 3.04 L Hgb 10.6 L Hct 30.2 L MCV 99.3 H MCH 34.7 H MCHC 35.0 RDW 14.0 Plt Count 312 MPV 9.3 Absolute Neuts (auto) 3.9 Neutrophils % 55.2 D Lymphocytes % 35.9 D Monocytes % 8.0 Eosinophils % 0.3 D Basophils % 0.6 Nucleated RBC % 0 Sodium 139 Potassium 4.2 Chloride 107 Carbon Dioxide 27 Anion Gap 6 L BUN 7.0 Creatinine 0.5 L Est GFR (CKD-EPI)AfAm 177.03 Est GFR (CKD-EPI)NonAf 152.75 Random Glucose 92 Calcium 8.7 Phosphorus 3.9 Magnesium 2.0 Total Bilirubin 0.3 AST 15 ALT 29 Alkaline Phosphatase 132 H Total Protein 6.7 Albumin 2.7 L Active Medications Generic Name Dose Route Start Last Admin Trade Name Freq PRN Reason Stop Dose Admin Acyclovir 400 mg 06/11/19 22:00 06/17/19 21:29 Zovirax Oral Suspension - GT 400 mg BID JORGE Administration Albuterol Sulfate 1 amp 06/13/19 14:31 06/17/19 07:30 Ventolin 0.083% Nebulizer Soln - NEB 1 amp Q6H PRN Administration WHEEZING Bacitracin 1 applic 06/11/19 22:00 06/17/19 21:26 Bacitracin - TP 1 applic BID JORGE Administration Baclofen 10 mg 06/11/19 22:00 06/17/19 21:27 Lioresal - GT 10 mg BID JORGE Administration Chlorhexidine Gluconate 1 applic 06/11/19 22:00 06/17/19 21:27 Hibiclens For Decolonization - TP 1 applic HS JORGE Administration Clobazam 10 mg 06/11/19 22:00 06/17/19 21:28 Onfi - GT 10 mg HS JORGE Administration Clobazam 5 mg 06/12/19 10:00 06/17/19 09:26 Onfi - GT 5 mg DAILY JORGE Administration Clonazepam 1.5 mg 06/11/19 22:00 06/18/19 05:46 Klonopin - GT 1.5 mg TID JORGE Administration Docusate Sodium 100 mg 06/17/19 21:53 Colace Liquid - PO DAILY PRN CONSTIPATION Famotidine 10 mg 06/11/19 22:00 06/17/19 21:28 Pepcid NGT 10 mg BID JORGE Administration Fluticasone Propionate 2 spray 06/12/19 07:00 06/18/19 06:14 Flonase - NS 2 sprays AM JORGE Administration Heparin Sodium (Porcine) 5,000 unit 06/11/19 14:00 06/18/19 05:46 Heparin - SQ 5,000 unit TID JORGE Administration Piperacillin Sod/Tazobactam 50 mls @ 100 mls/hr 06/13/19 08:00 06/18/19 02:46 Sod 3.375 gm/ Dextrose IVPB 100 mls/hr Q8H-IV JORGE Administration Protocol Lactated Ringer's 1,000 ml in 1,000 mls @ 75 mls/hr 06/14/19 15:30 06/17/19 12:00 Lactated Ringers Solution IV 75 mls/hr ASDIR JORGE Administration Propofol 1,000,000 mcg in 100 mls @ 1.215 mls/hr 06/17/19 01:45 06/18/19 02: 47 Diprivan - IVPB 20 mcg/kg/min TITR JORGE 4.861 mls/hr Administration Protocol 5 MCG/KG/MIN Lactobacillus Acidophilus 1 tab 06/11/19 22:00 06/17/19 21:25 Bacid - GT 1 tab HS JORGE Administration Lamotrigine 200 mg 06/11/19 22:00 06/17/19 21:27 Lamictal - PO 200 mg BID JORGE Administration Magnesium Hydroxide 20 ml 06/11/19 22:00 06/17/19 21:28 Milk Of Magnesia - GT 20 ml BID JORGE Administration Multivitamins/Minerals 15 ml 06/11/19 22:00 06/17/19 21:26 Certavite-Antioxidant Liquid GT 15 ml HS JORGE Administration Phenobarbital 45 mg 06/15/19 13:00 06/17/19 21:28 Phenobarbital Liquid - PO 45 mg BID JORGE Administration Polyethylene Glycol 17 gm 06/17/19 20:00 06/17/19 21:25 Miralax (For Daily Use) - PO 17 grams DAILY JORGE Administration Sodium Chloride 2 spray 06/11/19 22:00 06/17/19 21:30 [place] Nasal [place] - NS 2 spray BID JORGE Administration Assessment and plan: Patient presents with acute hypoxic respiratory failure likely secondary to acute aspiration pneumonia which is secondary to his dysphagia due to his ongoing issues with chronic medical problems. He is on inhaled bronchodilators with FiO2 being tapered to keep the SPO2 greater than 90% as per the ICU team. We will resume spontaneous breathing trials once secretions are decreased. He remains on broad-spectrum antibiotics and his home antiepileptic drugs. 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 Appreciate expert management. Concern exists that if this progresses he could end up with tracheostomy. Problems include: Acute hypoxic respiratory failure secondary to aspiration pneumonia Sepsis secondary to aspiration pneumonia Seizure disorder, on home medications, no seizure activity noted Mental Retardation, cerebral palsy GERD Full Code Visit type - Emergency Visit Emergency Visit: No - New Patient This patient is new to me today: No - Critical Care Critical Care patient: Yes Total Critical Care Time (in minutes): 30 Critical Care Statement: The care of this patient involved high complexity decision making to prevent further life threatening deterioration of the patient 's condition and/or to evaluate & treat vital organ system(s) failure or risk of failure.
[2019-06-18] MEDS: PHENobarbital 20 MG/5 ML UNIT-DOSE CUP PO SCH ×2 (09:28→22:15)
[2019-06-18] MEDS: FAMOTIDINE 40 MG/5 ML ORAL SUSPENSION NGT SCH ×2 (09:31→22:13)
[2019-06-18] MEDS: ACYCLOVIR 200 MG/5 ML LIQUID GT SCH ×2 (09:31→22:13)
[2019-06-18] MEDS: SODIUM CHLORIDE NASAL SPRAY 44 ML BOTTLE NS SCH ×2 (09:32→22:15)
[2019-06-18] MEDS: MAGNESIUM HYDROX 2400MG/30ML ORAL SUSPENSION 30 ML CUP GT SCH ×2 (09:33→22:12)
[2019-06-18] MEDS: BACLOFEN 10 MG TABLET (FP) GT SCH ×2 (09:34→22:14)
[2019-06-18] MEDS: lamoTRIgine 100 MG TABLET PO SCH ×2 (09:34→22:14)
[2019-06-18] MEDS: BACITRACIN 15 GM TUBE TOPICAL OINTMENT TP SCH ×2 (09:39→22:11)
[2019-06-18] MEDS: POLYETHYLENE GLYCOL 3350 119 GM BTL PO SCH (09:40)
--- NOTE | 2019-06-18 09:49 | PN ---
Progress Note (short form) - Note Progress Note: fevers improved re-intubated yesterday Vital Signs Period Temp Pulse Resp BP Sys/Linares Pulse Ox Last 24 Hr 98.6 F-99.7 F 51-80 12-147 92-114/44-70 97-100 cor-rrr lungs decreased bs at bases abd soft,nt +GT ext no edema CBC, BMP 06/18/19 05:36 06/18/19 05:36 Microbiology 06/16/19 21:30 Blood - Peripheral Venous Blood Culture - Preliminary NO GROWTH OBTAINED AFTER 24 HOURS, INCUBATION TO CONTINUE FOR 4 DAYS. 06/16/19 21:30 Blood - Peripheral Venous Blood Culture - Preliminary NO GROWTH OBTAINED AFTER 24 HOURS, INCUBATION TO CONTINUE FOR 4 DAYS. 06/13/19 16:00 Blood - Peripheral Venous Blood Culture - Preliminary NO GROWTH OBTAINED AFTER 96 HOURS, INCUBATION TO CONTINUE FOR 1 DAYS. 06/13/19 15:40 Blood - Peripheral Venous Blood Culture - Preliminary NO GROWTH OBTAINED AFTER 96 HOURS, INCUBATION TO CONTINUE FOR 1 DAYS. 06/16/19 22:00 Sputum - Oropharynx Suctioned Sputum Gram Stain - Final 06/17/19 03:00 Urine - Urine Lane Legionella Antigen - Final 06/17/19 03:00 Urine - Urine Lane Streptococcus pneumoniae Antigen (M - Final 06/11/19 10:30 Blood - Peripheral Venous Blood Culture - Final Staphylococcus Epidermidis 06/11/19 10:30 Blood - Peripheral Venous Blood Culture - Final NO GROWTH AFTER 5 DAYS INCUBATION 06/12/19 08:00 Sputum - Endotrachea Suction/Ventilator Gram Stain - Final 06/12/19 08:00 Sputum - Endotrachea Suction/Ventilator Sputum Culture - Final Pseudomonas Aeruginosa 06/12/19 23:20 Nares - Mrsa Screen - Left MRSA Screen - Final NO MRSA ISOLATED 06/12/19 23:20 Nares - Right Nares MRSA Screen - Final NO MRSA ISOLATED 06/12/19 11:30 Urine For Antigen Detection Legionella Antigen - Final 06/12/19 11:30 Urine For Antigen Detection Streptococcus pneumoniae Antigen (M - Final 06/11/19 10:50 Urine - Urine - Catheterized Urine Culture - Final NO GROWTH OBTAINED a/p respiratory failure pneumonia-aspiration continue zosyn fevers improved
[2019-06-18] MEDS: LACTATED RINGERS SOLUTION 1,000 ML/1,000 ML INFUS.BAG IV SCH (15:30)
[2019-06-18] MEDS: LACTOBACILLUS ACIDOPHILUS 1 TABLET GT SCH (22:11)
[2019-06-18] MEDS: CHLORHEXIDINE GLUCONATE 4% CLEANSER FOR DECOLONIZATION TP SCH (22:12)
[2019-06-18] MEDS: MULTIVIT-MINERALS ORAL LIQUID GT SCH (22:13)
[2019-06-19] MEDS ORDERED: PIPERACILLIN/TAZOBACTAM 3.375 GM VIAL IVPB ONE ×3 (00:33→18:45)
[2019-06-19] MEDS ORDERED: DEXTROSE 5%-WATER - 50 ML IVPB ONE ×3 (00:33→18:45)
[2019-06-19] MEDS: PIPERACILLIN/TAZOB 3.375 GM 3.375 GM in DEXTROSE 5%-WATER - 50 ML IVPB SCH ×2 (01:07→11:13)
[2019-06-19] MEDS: HEPARIN NA (PORCINE) 5,000 UNITS/ML 1ML VIAL SQ SCH ×3 (06:23→22:55)
[2019-06-19] MEDS: clonazePAM 0.5 MG TABLET GT SCH ×3 (06:23→22:53)
[2019-06-19] MEDS: FLUTICASONE PROP 0.05% 16 GM NASAL SPRAY NS SCH (06:31)
--- NOTE | 2019-06-19 08:43 | PN ---
Progress Note (short form) - Note Progress Note: afebrile remains intubated Vital Signs Period Temp Pulse Resp BP Sys/Linares Pulse Ox Last 24 Hr 98.6 F-99.2 F 51-79 12-19 98-112/49-63 98-100 cor-rrr lungs decreased abd soft,nt, +GT ext no edema CBC, BMP 06/18/19 05:36 06/18/19 05:36 Microbiology 06/16/19 21:30 Blood - Peripheral Venous Blood Culture - Preliminary NO GROWTH OBTAINED AFTER 48 HOURS, INCUBATION TO CONTINUE FOR 3 DAYS. 06/16/19 21:30 Blood - Peripheral Venous Blood Culture - Preliminary NO GROWTH OBTAINED AFTER 48 HOURS, INCUBATION TO CONTINUE FOR 3 DAYS. 06/13/19 16:00 Blood - Peripheral Venous Blood Culture - Final NO GROWTH AFTER 5 DAYS INCUBATION 06/13/19 15:40 Blood - Peripheral Venous Blood Culture - Final NO GROWTH AFTER 5 DAYS INCUBATION 06/16/19 22:00 Sputum - Oropharynx Suctioned Sputum Gram Stain - Final 06/16/19 22:00 Sputum - Oropharynx Suctioned Sputum Sputum Culture - Preliminary Pseudomonas Species 06/16/19 22:20 Urine - Urine - Catheterized Urine Culture - Final NO GROWTH OBTAINED 06/17/19 03:00 Urine - Urine Lane Legionella Antigen - Final 06/17/19 03:00 Urine - Urine Lane Streptococcus pneumoniae Antigen (M - Final 06/11/19 10:30 Blood - Peripheral Venous Blood Culture - Final Staphylococcus Epidermidis 06/11/19 10:30 Blood - Peripheral Venous Blood Culture - Final NO GROWTH AFTER 5 DAYS INCUBATION 06/12/19 08:00 Sputum - Endotrachea Suction/Ventilator Gram Stain - Final 06/12/19 08:00 Sputum - Endotrachea Suction/Ventilator Sputum Culture - Final Pseudomonas Aeruginosa 06/12/19 23:20 Nares - Mrsa Screen - Left MRSA Screen - Final NO MRSA ISOLATED 06/12/19 23:20 Nares - Right Nares MRSA Screen - Final NO MRSA ISOLATED 06/12/19 11:30 Urine For Antigen Detection Legionella Antigen - Final 06/12/19 11:30 Urine For Antigen Detection Streptococcus pneumoniae Antigen (M - Final 06/11/19 10:50 Urine - Urine - Catheterized Urine Culture - Final NO GROWTH OBTAINED a/p respiratory failure [id number] afebrile continue zosyn CP/MR-developmental delay fevers improved
[2019-06-19] MEDS: BACITRACIN 15 GM TUBE TOPICAL OINTMENT TP SCH ×2 (10:56→23:08)
[2019-06-19] MEDS ORDERED: PT OWN MED DRAWER 7, Y5N ONE ×2 (11:02→22:26)
[2019-06-19] MEDS: PROPOFOL 1,000,000 MCG/100 ML VIAL IVPB SCH ×2 (11:05→18:47)
[2019-06-19] MEDS: BACLOFEN 10 MG TABLET (FP) GT SCH ×2 (11:08→22:56)
[2019-06-19] MEDS: lamoTRIgine 100 MG TABLET PO SCH ×2 (11:08→22:56)
[2019-06-19] MEDS: POLYETHYLENE GLYCOL 3350 119 GM BTL PO SCH (11:09)
[2019-06-19] MEDS: MAGNESIUM HYDROX 2400MG/30ML ORAL SUSPENSION 30 ML CUP GT SCH ×2 (11:09→23:08)
[2019-06-19] MEDS: SODIUM CHLORIDE NASAL SPRAY 44 ML BOTTLE NS SCH ×2 (11:10→23:09)
[2019-06-19] MEDS: cloBAZam 10 MG TABLET GT SCH ×2 (11:11→22:54)
[2019-06-19] MEDS: FAMOTIDINE 40 MG/5 ML ORAL SUSPENSION NGT SCH ×2 (11:11→22:56)
[2019-06-19] MEDS: PHENobarbital 20 MG/5 ML UNIT-DOSE CUP PO SCH ×2 (11:12→23:08)
[2019-06-19] MEDS: ACYCLOVIR 200 MG/5 ML LIQUID GT SCH ×2 (11:13→22:56)
--- NOTE | 2019-06-19 12:56 | PN ---
Progress Note (short form) - Note Progress Note: Progress Note Pulm/CCM Pt seen and examined in the ICU. Remains intubated. CXR with persistent LLL consolidation. Failed SBT 2/2 large amt secretions. Active Medications Acyclovir (Zovirax Oral Suspension -) 400 mg GT BID [facility] Last Admin: 06/19/19 11:13 Dose: 400 mg Albuterol Sulfate (Ventolin 0.083% Nebulizer Soln -) 1 amp NEB Q6H PRN PRN Reason: WHEEZING Last Admin: 06/17/19 07:30 Dose: 1 amp Bacitracin (Bacitracin -) 1 applic TP BID [facility] Last Admin: 06/19/19 10:56 Dose: 1 applic Baclofen (Lioresal -) 10 mg GT BID [facility] Last Admin: 06/19/19 11:08 Dose: 10 mg Chlorhexidine Gluconate (Hibiclens For Decolonization -) 1 applic TP HS [facility] Last Admin: 06/18/19 22:12 Dose: 1 applic Clobazam (Onfi -) 10 mg GT HS [facility] Last Admin: 06/18/19 22:12 Dose: 10 mg Clobazam (Onfi -) 5 mg GT DAILY [facility] Last Admin: 06/19/19 11:11 Dose: 5 mg Clonazepam (Klonopin -) 1.5 mg GT TID [facility] Last Admin: 06/19/19 06:23 Dose: 1.5 mg Docusate Sodium (Colace Liquid -) 100 mg PO DAILY PRN PRN Reason: CONSTIPATION Last Admin: 06/18/19 09:35 Dose: 100 mg Famotidine (Pepcid) 10 mg NGT BID [facility] Last Admin: 06/19/19 11:11 Dose: 10 mg Fluticasone Propionate (Flonase -) 2 spray NS AM [facility] Last Admin: 06/19/19 06:31 Dose: 2 sprays Heparin Sodium (Porcine) (Heparin -) 5,000 unit SQ TID [facility] Last Admin: 06/19/19 06:23 Dose: 5,000 unit Piperacillin Sod/Tazobactam (Sod 3.375 gm/ Dextrose) 50 mls @ 100 mls/hr IVPB Q8H-IV JORGE; Protocol Last Admin: 06/19/19 11:13 Dose: 100 mls/hr Lactated Ringer's (Lactated Ringers Solution) 1,000 ml in 1,000 mls @ 75 mls/ hr IV ASDIR JORGE Last Admin: 06/18/19 15:30 Dose: 75 mls/hr Propofol (Diprivan -) 1,000,000 mcg in 100 mls @ 1.215 mls/hr IVPB TITR JORGE; Protocol Last Admin: 06/19/19 11:05 Dose: 30 mcg/kg/min, 7.292 mls/hr Lactobacillus Acidophilus (Bacid -) 1 tab GT HS [facility] Last Admin: 06/18/19 22:11 Dose: 1 tab Lamotrigine (Lamictal -) 200 mg PO BID [facility] Last Admin: 06/19/19 11:08 Dose: 200 mg Magnesium Hydroxide (Milk Of Magnesia -) 20 ml GT BID [facility] Last Admin: 06/19/19 11:09 Dose: 20 ml Multivitamins/Minerals (Certavite-Antioxidant Liquid) 15 ml GT HS [facility] Last Admin: 06/18/19 22:13 Dose: 15 ml Phenobarbital (Phenobarbital Liquid -) 45 mg PO BID [facility] Last Admin: 06/19/19 11:12 Dose: 45 mg Polyethylene Glycol (Miralax (For Daily Use) -) 17 gm PO DAILY [facility] Last Admin: 06/19/19 11:09 Dose: 17 grams Sodium Chloride ([place] Nasal [place] -) 2 spray NS BID [facility] Last Admin: 06/19/19 11:10 Dose: 2 spray Vital Signs Period Temp Pulse Resp BP Sys/Linares Pulse Ox Last 24 Hr 98.6 F-99.0 F 51-79 12-20 101-112/49-63 98-100 Intake & Output 06/16/19 06/17/19 06/18/19 06/19/19 23:59 23:59 23:59 23:59 Intake Total 1374.1 2126 2867.8 Output Total 4500 2300 2400 650 Balance -3125.9 -174 467.8 -650 Weight 40.511 kg 40.511 kg 40.8 kg 40.6 kg GEN: 24 y/o man fxnal quad 2/2 CP, sedated, intubated PULM: Vented, bilateral scattered rhonchi, diminished at the bases CV: nml S1 S2, RR, unable to appreciate any G/M/R ABD: + BS, PEG, S/S N/T N/D X4Q EXT: contracted, + Pulses, WWPX4, (-) edema CBC, BMP 06/18/19 05:36 06/18/19 05:36 Microbiology 06/16/19 22:00 Sputum - Oropharynx Suctioned Sputum Gram Stain - Final 06/16/19 22:00 Sputum - Oropharynx Suctioned Sputum Sputum Culture - Final Pseudomonas Aeruginosa 06/16/19 21:30 Blood - Peripheral Venous Blood Culture - Preliminary NO GROWTH OBTAINED AFTER 48 HOURS, INCUBATION TO CONTINUE FOR 3 DAYS. 06/16/19 21:30 Blood - Peripheral Venous Blood Culture - Preliminary NO GROWTH OBTAINED AFTER 48 HOURS, INCUBATION TO CONTINUE FOR 3 DAYS. 06/13/19 16:00 Blood - Peripheral Venous Blood Culture - Final NO GROWTH AFTER 5 DAYS INCUBATION 06/13/19 15:40 Blood - Peripheral Venous Blood Culture - Final NO GROWTH AFTER 5 DAYS INCUBATION 06/16/19 22:20 Urine - Urine - Catheterized Urine Culture - Final NO GROWTH OBTAINED 06/17/19 03:00 Urine - Urine Lane Legionella Antigen - Final 06/17/19 03:00 Urine - Urine Lane Streptococcus pneumoniae Antigen (M - Final 06/11/19 10:30 Blood - Peripheral Venous Blood Culture - Final Staphylococcus Epidermidis 06/11/19 10:30 Blood - Peripheral Venous Blood Culture - Final NO GROWTH AFTER 5 DAYS INCUBATION 06/12/19 08:00 Sputum - Endotrachea Suction/Ventilator Gram Stain - Final 06/12/19 08:00 Sputum - Endotrachea Suction/Ventilator Sputum Culture - Final Pseudomonas Aeruginosa 06/12/19 23:20 Nares - Mrsa Screen - Left MRSA Screen - Final NO MRSA ISOLATED 06/12/19 23:20 Nares - Right Nares MRSA Screen - Final NO MRSA ISOLATED 06/12/19 11:30 Urine For Antigen Detection Legionella Antigen - Final 06/12/19 11:30 Urine For Antigen Detection Streptococcus pneumoniae Antigen (M - Final 06/11/19 10:50 Urine - Urine - Catheterized Urine Culture - Final NO GROWTH OBTAINED RECENT STUDIES TO NOTE: CTA CHEST 06/17: No CT evidence of pulmonary embolism. Mild bilateral upper lower lung field groundglass parenchymal attenuation is noted which may be due to small airway disease. 3 x 2.4 cm left adrenal nodule as noted above. There is partial imaging of a 0.5 x 1.4 cm right perirenal structure as discussed above. ASSESS: Acute Hypoxic Respiratory Failure Pneumonia likely Aspiration Bacteremia Cerebral Palsy Mental Retardation Seizure Disorder GERD Anemia PLAN: - Cont Vent Support - Nebs - Wean FiO2 as tolerated - SBT trials as tolerated; if fails will need trach - Continue antibiotics - Cont AED's - Strict I's & O's - Trend BUN/Cr - Replete e-lyets prn - TFs - DVT/GI prophylaxis - continue ICU monitoring Shelby Javier, [facility]- Additional CC's: Kush Price
[2019-06-19] MEDS: LACTATED RINGERS SOLUTION 1,000 ML/1,000 ML INFUS.BAG IV SCH (18:44)
--- NOTE | 2019-06-19 19:33 | PN ---
Physical Exam: SUBJECTIVE: Patient seen and examined. Was extubated then needed to reintubate due to vomiting/secretions. Afebrile and asymptomatic. Denies f/c/n/v/d/sob/cp. OBJECTIVE: Vital Signs Period Temp Pulse Resp BP Sys/Linares Pulse Ox Last 24 Hr 98.6 F-99.2 F 51-88 12-23 96-120/49-73 98-100 GENERAL: The patient is intubated and sedated NECK: supple. LUNGS: Breath sounds equal, clear to auscultation bilaterally, no wheezes, no crackles, no accessory muscle use. HEART: asad and regular rhythm, S1, S2 without murmur, rub or gallop. ABDOMEN: Soft, nontender, nondistended EXTREMITIES: 2+ pulses, warm, well-perfused, no edema. NEUROLOGICAL: Cranial nerves II through XII grossly intact. Normal speech Active Medications Generic Name Dose Route Start Last Admin Trade Name Freq PRN Reason Stop Dose Admin Acyclovir 400 mg 06/11/19 22:00 06/19/19 11:13 Zovirax Oral Suspension - GT 400 mg BID JORGE Administration Albuterol Sulfate 1 amp 06/13/19 14:31 06/17/19 07:30 Ventolin 0.083% Nebulizer Soln - NEB 1 amp Q6H PRN Administration WHEEZING Bacitracin 1 applic 06/11/19 22:00 06/19/19 10:56 Bacitracin - TP 1 applic BID JORGE Administration Baclofen 10 mg 06/11/19 22:00 06/19/19 11:08 Lioresal - GT 10 mg BID JORGE Administration Chlorhexidine Gluconate 1 applic 06/11/19 22:00 06/18/19 22:12 Hibiclens For Decolonization - TP 1 applic HS JORGE Administration Clobazam 10 mg 06/11/19 22:00 06/18/19 22:12 Onfi - GT 10 mg HS JORGE Administration Clobazam 5 mg 06/12/19 10:00 06/19/19 11:11 Onfi - GT 5 mg DAILY JORGE Administration Clonazepam 1.5 mg 06/11/19 22:00 06/19/19 14:41 Klonopin - GT 1.5 mg TID JORGE Administration Docusate Sodium 100 mg 06/17/19 21:53 06/18/19 09:35 Colace Liquid - PO 100 mg DAILY PRN Administration CONSTIPATION Famotidine 10 mg 06/11/19 22:00 06/19/19 11:11 Pepcid NGT 10 mg BID JORGE Administration Fluticasone Propionate 2 spray 06/12/19 07:00 06/19/19 06:31 Flonase - NS 2 sprays AM JORGE Administration Heparin Sodium (Porcine) 5,000 unit 06/11/19 14:00 06/19/19 14:41 Heparin - SQ 5,000 unit TID JORGE Administration Piperacillin Sod/Tazobactam 50 mls @ 100 mls/hr 06/13/19 08:00 06/19/19 11:13 Sod 3.375 gm/ Dextrose IVPB 100 mls/hr Q8H-IV JORGE Administration Protocol Lactated Ringer's 1,000 ml in 1,000 mls @ 75 mls/hr 06/14/19 15:30 06/19/19 18:44 Lactated Ringers Solution IV 75 mls/hr ASDIR JORGE Administration Propofol 1,000,000 mcg in 100 mls @ 1.215 mls/hr 06/17/19 01:45 06/19/19 18: 47 Diprivan - IVPB 30 mcg/kg/min TITR JORGE 7.292 mls/hr Administration Protocol 5 MCG/KG/MIN Lactobacillus Acidophilus 1 tab 06/11/19 22:00 06/18/19 22:11 Bacid - GT 1 tab HS JORGE Administration Lamotrigine 200 mg 06/11/19 22:00 06/19/19 11:08 Lamictal - PO 200 mg BID JORGE Administration Magnesium Hydroxide 20 ml 06/11/19 22:00 06/19/19 11:09 Milk Of Magnesia - GT 20 ml BID JORGE Administration Multivitamins/Minerals 15 ml 06/11/19 22:00 06/18/19 22:13 Certavite-Antioxidant Liquid GT 15 ml HS JORGE Administration Phenobarbital 45 mg 06/15/19 13:00 06/19/19 11:12 Phenobarbital Liquid - PO 45 mg BID JORGE Administration Polyethylene Glycol 17 gm 06/17/19 20:00 06/19/19 11:09 Miralax (For Daily Use) - PO 17 grams DAILY JORGE Administration Sodium Chloride 2 spray 06/11/19 22:00 06/19/19 11:10 [place] Nasal [place] - NS 2 spray BID JORGE Administration ASSESSMENT/PLAN: 24 y/o M from [place] with hx Cerebral Palsy, Developmental Delay, cognitive impairment, functional quadriplegia, seizure disorder, Hx of herpes encephalitis , GERD, Asthma/reactive airway disease, and Hx of aspiration pneumonia, recently discharged from [facility] 06/09 s/p Pseudomonal PNA and flu treated (with Tamiflu, Zosyn, Steroid) requiring Intubation/Ventilation, now presents with [place] #Acute Hypoxic Respiratory failure with sepsis 2/2 likely aspiration PNA weaning trial today failed, re-intubated + Sedated ICU team monitoring continue zosyn day 6 keep SaO2 >90% on vent settings ID (Dr Harrison) on case CXR- some atelectasis vs infiltrates on left base #Hypokalemia resolved LR 75 cc/hr #Seizure disorder continue anti-seizure regimen Clonazepam, Lamotrigene, Phenobarbital #Hx of herpes Encephalitis maintained on Acyclovir # transaminases US Abdo - no acute pathology. DVT ppx: Hep TID FEN monitor lytes Jevity LR at 75 Dispo: monitor ICU, intubated, likely trach if SBT fails again Visit type - Emergency Visit Emergency Visit: Yes ED Registration Date: 06/11/19 Care time: The patient presented to the Emergency Department on the above date and was hospitalized for further evaluation of their emergent condition. - New Patient This patient is new to me today: Yes Date on this admission: 06/19/19 - Critical Care Critical Care patient: No - Discharge Referral Referred to [facility] Med P.C.: No ATTENDING PHYSICIAN STATEMENT I saw and evaluated the patient. I reviewed the resident's note and discussed the case with the resident. I agree with the resident's findings and plan as documented. SUBJECTIVE: OBJECTIVE: ASSESSMENT AND PLAN:
[2019-06-19] MEDS: CHLORHEXIDINE GLUCONATE 4% CLEANSER FOR DECOLONIZATION TP SCH (22:54)
[2019-06-19] MEDS: MULTIVIT-MINERALS ORAL LIQUID GT SCH (22:57)
[2019-06-19] MEDS: LACTOBACILLUS ACIDOPHILUS 1 TABLET GT SCH (23:07)
[2019-06-20] MEDS ORDERED: DEXTROSE 5%-WATER - 50 ML IVPB ONE ×3 (03:11→18:19)
[2019-06-20] MEDS ORDERED: PIPERACILLIN/TAZOBACTAM 3.375 GM VIAL IVPB ONE ×3 (03:11→18:19)
[2019-06-20] MEDS: PIPERACILLIN/TAZOB 3.375 GM 3.375 GM in DEXTROSE 5%-WATER - 50 ML IVPB SCH ×3 (03:30→18:21)
[2019-06-20] MEDS: PROPOFOL 1,000,000 MCG/100 ML VIAL IVPB SCH (03:31)
[2019-06-20] MEDS: clonazePAM 0.5 MG TABLET GT SCH ×3 (06:06→23:23)
[2019-06-20] MEDS: HEPARIN NA (PORCINE) 5,000 UNITS/ML 1ML VIAL SQ SCH ×3 (06:07→23:23)
[2019-06-20] MEDS: FLUTICASONE PROP 0.05% 16 GM NASAL SPRAY NS SCH (06:07)
[2019-06-20 06:30] LABS: HEMATOCRIT 29.5 % (35.4-49); HEMOGLOBIN 10.1 GM/dL (11.7-16.9); MCHC 34.2 g/dl (32.0-35.9); MEAN CELL VOLUME 99.4 fl (80-96); MEAN PLT VOLUME 8.5 fl (7.5-11.1); PLATELET COUNT 332 K/MM3 (134-434); RBC 2.97 M/mm3 (4.00-5.60); RDW 13.9 % (11.9-15.9); WHITE BLOOD COUNT 6.3 K/mm3 (4.0-10.0)
[2019-06-20 06:59] LABS: ALBUMIN 2.7 g/dl (3.4-5.0); BILIRUBIN,TOTAL 0.5 mg/dL (0.2-1); CALCIUM 9.1 mg/dL (8.5-10.1); CREATININE 0.6 mg/dL (0.55-1.3); MAGNESIUM 1.7 mg/dL (1.8-2.4); PHOSPHOROUS 4.1 mg/dL (2.5-4.9); POTASSIUM 3.7 mmol/L (3.5-5.1); TOT PROT 6.7 g/dl (6.4-8.2)
[2019-06-20] MEDS ORDERED: MAGNESIUM 1GM/D5W 100ML - 100 ML IVPB IVPB ONE (08:30)
[2019-06-20] MEDS ORDERED: PT OWN MED DRAWER 7, Y5N ONE ×2 (09:30→21:35)
[2019-06-20] MEDS: BACITRACIN 15 GM TUBE TOPICAL OINTMENT TP SCH ×2 (09:36→23:24)
[2019-06-20] MEDS: BACLOFEN 10 MG TABLET (FP) GT SCH ×2 (09:37→23:26)
[2019-06-20] MEDS: lamoTRIgine 100 MG TABLET PO SCH ×2 (09:37→23:26)
[2019-06-20] MEDS: MAGNESIUM HYDROX 2400MG/30ML ORAL SUSPENSION 30 ML CUP GT SCH ×2 (09:38→23:26)
[2019-06-20] MEDS: SODIUM CHLORIDE NASAL SPRAY 44 ML BOTTLE NS SCH ×2 (09:39→23:27)
[2019-06-20] MEDS: POLYETHYLENE GLYCOL 3350 119 GM BTL PO SCH (09:39)
[2019-06-20] MEDS: FAMOTIDINE 40 MG/5 ML ORAL SUSPENSION NGT SCH ×2 (09:41→23:32)
[2019-06-20] MEDS: cloBAZam 10 MG TABLET GT SCH ×2 (09:41→23:23)
[2019-06-20] MEDS: PHENobarbital 20 MG/5 ML UNIT-DOSE CUP PO SCH ×2 (09:42→23:32)
[2019-06-20] MEDS: ACYCLOVIR 200 MG/5 ML LIQUID GT SCH ×2 (09:43→23:25)
--- NOTE | 2019-06-20 11:56 | PN ---
Progress Note, Physician History of Present Illness: WEANING EFFORTS I PROGRESS NO ACUTE DISTRESS ON VENTILATOR AFEBRILE - Current Medication List Current Medications: Active Medications Acyclovir (Zovirax Oral Suspension -) 400 mg GT BID [facility] Last Admin: 06/20/19 09:43 Dose: 400 mg Albuterol Sulfate (Ventolin 0.083% Nebulizer Soln -) 1 amp NEB Q6H PRN PRN Reason: WHEEZING Last Admin: 06/17/19 07:30 Dose: 1 amp Bacitracin (Bacitracin -) 1 applic TP BID JORGE Last Admin: 06/20/19 09:36 Dose: 1 applic Baclofen (Lioresal -) 10 mg GT BID JORGE Last Admin: 06/20/19 09:37 Dose: 10 mg Chlorhexidine Gluconate (Hibiclens For Decolonization -) 1 applic TP HS [facility] Last Admin: 06/19/19 22:54 Dose: 1 applic Clobazam (Onfi -) 10 mg GT HS [facility] Last Admin: 06/19/19 22:54 Dose: 10 mg Clobazam (Onfi -) 5 mg GT DAILY [facility] Last Admin: 06/20/19 09:41 Dose: 5 mg Clonazepam (Klonopin -) 1.5 mg GT TID [facility] Last Admin: 06/20/19 06:06 Dose: 1.5 mg Docusate Sodium (Colace Liquid -) 100 mg PO DAILY PRN PRN Reason: CONSTIPATION Last Admin: 06/18/19 09:35 Dose: 100 mg Famotidine (Pepcid) 10 mg NGT BID [facility] Last Admin: 06/20/19 09:41 Dose: 10 mg Fluticasone Propionate (Flonase -) 2 spray NS AM JORGE Last Admin: 06/20/19 06:07 Dose: 2 sprays Heparin Sodium (Porcine) (Heparin -) 5,000 unit SQ TID JORGE Last Admin: 06/20/19 06:07 Dose: 5,000 unit Piperacillin Sod/Tazobactam (Sod 3.375 gm/ Dextrose) 50 mls @ 100 mls/hr IVPB Q8H-IV JORGE; Protocol Last Admin: 06/20/19 09:35 Dose: 100 mls/hr Lactated Ringer's (Lactated Ringers Solution) 1,000 ml in 1,000 mls @ 75 mls/ hr IV ASDIR JORGE Last Admin: 06/19/19 18:44 Dose: 75 mls/hr Propofol (Diprivan -) 1,000,000 mcg in 100 mls @ 1.215 mls/hr IVPB TITR [facility]; Protocol Last Admin: 06/20/19 03:31 Dose: 30 mcg/kg/min, 7.292 mls/hr Lactobacillus Acidophilus (Bacid -) 1 tab GT [facility] Last Admin: 06/19/19 23:07 Dose: 1 tab Lamotrigine (Lamictal -) 200 mg PO BID [facility] Last Admin: 06/20/19 09:37 Dose: 200 mg Magnesium Hydroxide (Milk Of Magnesia -) 20 ml GT BID [facility] Last Admin: 06/20/19 09:38 Dose: 20 ml Multivitamins/Minerals (Certavite-Antioxidant Liquid) 15 ml GT HS [facility] Last Admin: 06/19/19 22:57 Dose: 15 ml Phenobarbital (Phenobarbital Liquid -) 45 mg PO BID [facility] Last Admin: 06/20/19 09:42 Dose: 45 mg Polyethylene Glycol (Miralax (For Daily Use) -) 17 gm PO DAILY [facility] Last Admin: 06/20/19 09:39 Dose: 17 grams Sodium Chloride ([place] Nasal [place] -) 2 spray NS BID [facility] Last Admin: 06/20/19 09:39 Dose: 2 spray - Objective Vital Signs: Vital Signs Temperature 98.3 F 06/20/19 08:19 Pulse Rate 60 06/20/19 10:00 Respiratory Rate 13 06/20/19 10:00 Blood Pressure 96/45 L 06/20/19 10:00 O2 Sat by Pulse Oximetry (%) 99 06/20/19 08:19 Constitutional: Yes: No Distress Eyes: Yes: Conjunctiva Clear Cardiovascular: Yes: Regular Rate and Rhythm, S1, S2 Respiratory: Yes: Mechanically Ventilated Gastrointestinal: Yes: Normal Bowel Sounds, Soft. No: Tenderness Labs: CBC, BMP 06/20/19 06:00 06/20/19 06:00 INR, PTT INR 1.13 (0.83-1.09) H 06/11/19 11:10 Assessment/Plan RESP FAILURE PROBABLE RECURRENT ASPIRATION FEVER/ LEUKOCYTOSIS IMPROVED S/P RECENT INFLUENZA CONTINUE ZOSYN WEAN/ EXTUBATE TOLERATED
--- NOTE | 2019-06-20 12:06 | PN ---
Teaching Attending Note Name of Resident: Angeline Sims ATTENDING PHYSICIAN STATEMENT I saw and evaluated the patient. I reviewed the resident's note and discussed the case with the resident. I agree with the resident's findings and plan as documented. SUBJECTIVE: Patient seen and examined in the ICU. Remains intubated. No pressors. Less secretions. CXR: improving GEN: Intubated and sedated PULM: Vented, bilateral scattered rhonchi, diminished at the bases CV: nml S1 S2, RR, unable to appreciate any G/M/R ABD: + BS, PEG, S/S N/T N/D X4Q EXT: contracted, + Pulses, WWPX4, (-) edema Laboratory Results - last 24 hr 06/20/19 06/20/19 06:00 06:00 WBC 6.3 RBC 2.97 L Hgb 10.1 L Hct 29.5 L MCV 99.4 H MCH 34.0 H MCHC 34.2 RDW 13.9 Plt Count 332 MPV 8.5 Sodium 140 Potassium 3.7 Chloride 108 H Carbon Dioxide 27 Anion Gap 5 L BUN 6.0 L Creatinine 0.6 Est GFR (CKD-EPI)AfAm 164.25 Est GFR (CKD-EPI)NonAf 141.72 Random Glucose 93 Calcium 9.1 Phosphorus 4.1 Magnesium 1.7 L Total Bilirubin 0.5 AST 11 L ALT 26 Alkaline Phosphatase 122 H Total Protein 6.7 Albumin 2.7 L ASSESS: Acute Hypoxic Respiratory Failure Pneumonia likely Aspiration Bacteremia Cerebral Palsy Mental Retardation Seizure Disorder GERD Anemia PLAN: - Wean trials as tolerated - Nebs - Wean FiO2 as tolerated - Continue antibiotics - Cont AED's - Strict I's & O's - Trend BUN/Cr - Replete e-lyets prn - TFs - DVT/GI prophylaxis - Requires continued ICU monitoring Dr Price Critical care time spent in reviewing chart, evaluating patient and formulating plan - 36 minutes.
--- NOTE | 2019-06-20 13:15 | PN ---
Physical Exam: SUBJECTIVE: Patient seen and examined in the morning. Weaned off propofol and successfully extubated and started on HFOT. Continues to have secretions requiring frequent suctioning. OBJECTIVE: Vital Signs Period Temp Pulse Resp BP Sys/Linares Pulse Ox Last 24 Hr 98.3 F-99.2 F 45-81 10-21 96-134/45-92 95-100 GENERAL: The patient is awake, alert, and fully oriented, in no acute distress. HEAD: Normal with no signs of trauma. EYES: PERRL, extraocular movements intact, sclera anicteric, conjunctiva clear. No ptosis. ENT: Ears normal, nares patent, copious amounts of secretions with oral thrush. NECK: Trachea midline, full range of motion, supple. LUNGS: Diffuse ronchi bilaterally. No wheezes, no crackles, no accessory muscle use. HEART: Regular rate and rhythm, S1, S2 without murmur, rub or gallop. ABDOMEN: PEG tube present, no erythema around site. mild distension. Soft, nontender, normoactive bowel sounds, no guarding, no rebound, no masses. EXTREMITIES: Contracted, 2+ pulses, warm, well-perfused, no edema. NEUROLOGICAL: Unable to assess SKIN: Diffuse rash on chest. Laboratory Results - last 24 hr 06/20/19 06/20/19 06:00 06:00 WBC 6.3 RBC 2.97 L Hgb 10.1 L Hct 29.5 L MCV 99.4 H MCH 34.0 H MCHC 34.2 RDW 13.9 Plt Count 332 MPV 8.5 Sodium 140 Potassium 3.7 Chloride 108 H Carbon Dioxide 27 Anion Gap 5 L BUN 6.0 L Creatinine 0.6 Est GFR (CKD-EPI)AfAm 164.25 Est GFR (CKD-EPI)NonAf 141.72 Random Glucose 93 Calcium 9.1 Phosphorus 4.1 Magnesium 1.7 L Total Bilirubin 0.5 AST 11 L ALT 26 Alkaline Phosphatase 122 H Total Protein 6.7 Albumin 2.7 L Active Medications Acyclovir (Zovirax Oral Suspension -) 400 mg GT BID JORGE Last Admin: 06/20/19 09:43 Dose: 400 mg Albuterol Sulfate (Ventolin 0.083% Nebulizer Soln -) 1 amp NEB Q6H PRN PRN Reason: WHEEZING Last Admin: 06/17/19 07:30 Dose: 1 amp Bacitracin (Bacitracin -) 1 applic TP BID [facility] Last Admin: 06/20/19 09:36 Dose: 1 applic Baclofen (Lioresal -) 10 mg GT BID [facility] Last Admin: 06/20/19 09:37 Dose: 10 mg Chlorhexidine Gluconate (Hibiclens For Decolonization -) 1 applic TP HS [facility] Last Admin: 06/19/19 22:54 Dose: 1 applic Clobazam (Onfi -) 10 mg GT HS [facility] Last Admin: 06/19/19 22:54 Dose: 10 mg Clobazam (Onfi -) 5 mg GT DAILY [facility] Last Admin: 06/20/19 09:41 Dose: 5 mg Clonazepam (Klonopin -) 1.5 mg GT TID [facility] Last Admin: 06/20/19 06:06 Dose: 1.5 mg Docusate Sodium (Colace Liquid -) 100 mg PO DAILY PRN PRN Reason: CONSTIPATION Last Admin: 06/18/19 09:35 Dose: 100 mg Famotidine (Pepcid) 10 mg NGT BID [facility] Last Admin: 06/20/19 09:41 Dose: 10 mg Fluticasone Propionate (Flonase -) 2 spray NS AM [facility] Last Admin: 06/20/19 06:07 Dose: 2 sprays Heparin Sodium (Porcine) (Heparin -) 5,000 unit SQ TID [facility] Last Admin: 06/20/19 06:07 Dose: 5,000 unit Piperacillin Sod/Tazobactam (Sod 3.375 gm/ Dextrose) 50 mls @ 100 mls/hr IVPB Q8H-IV JORGE; Protocol Last Admin: 06/20/19 09:35 Dose: 100 mls/hr Lactated Ringer's (Lactated Ringers Solution) 1,000 ml in 1,000 mls @ 75 mls/ hr IV ASDIR [facility] Last Admin: 06/19/19 18:44 Dose: 75 mls/hr Lactobacillus Acidophilus (Bacid -) 1 tab GT [facility] Last Admin: 06/19/19 23:07 Dose: 1 tab Lamotrigine (Lamictal -) 200 mg PO BID [facility] Last Admin: 06/20/19 09:37 Dose: 200 mg Magnesium Hydroxide (Milk Of Magnesia -) 20 ml GT BID [facility] Last Admin: 06/20/19 09:38 Dose: 20 ml Multivitamins/Minerals (Certavite-Antioxidant Liquid) 15 ml GT HS [facility] Last Admin: 06/19/19 22:57 Dose: 15 ml Phenobarbital (Phenobarbital Liquid -) 45 mg PO BID [facility] Last Admin: 06/20/19 09:42 Dose: 45 mg Polyethylene Glycol (Miralax (For Daily Use) -) 17 gm PO DAILY [facility] Last Admin: 06/20/19 09:39 Dose: 17 grams Sodium Chloride ([place] Nasal [place] -) 2 spray NS BID [facility] Last Admin: 06/20/19 09:39 Dose: 2 spray ASSESSMENT/PLAN: Patient is a 24 year old male with PMH of CP, MR, epilepsy, herpes encephalitis , GERD, who presents with aspiration pneumonia requiring intubation. Neuro -PMH of cerebral palsy, MR, and epilepsy -Continue home meds: diazepam, clobazam, clonazepam, lamictal, phenobarbital -D/c'ed propofol drip Cardiovascular -Pt was noted to have be bradycardic during previous admission on cardiac monitoring -EKG has not shown any acute changes or abnormalities. -Continous cardiac monitoring Pulmonary -Acute hypoxic respiratory failure 2/ aspiration pneumonia -Pt successfully extubated today. -HFOT @ 5L and 50% O2 -Daily CXR GI -PEG tube in place, continue tube feeding -No acute issues, will continue to monitor Renal -Lane catheter in placed 06/03, changed to external 06/20 -Monitor electrolytes and replete PRN -Strict I's & O's ID -PMH herpes encephalitis -Continue acyclovir -Continue zoysn 3.375gm Q8H (Day 8) -Sputum cx: pseudomonas resistant to aztreonam -Blood cx: neg for 72 hours, cont to f/u F:75 ml/hr LR E: Monitor CMP N: [employer] Tube Feed Lines: Intubated 06/17/2019. Extubated 06/20/2019. Dispo: We will continue to follow the patient. Thank you for this consultative opportunity. Visit type - Emergency Visit Emergency Visit: No - New Patient This patient is new to me today: Yes Date on this admission: 06/21/19 - Critical Care Critical Care patient: Yes Total Critical Care Time (in minutes): 45 Critical Care Statement: The care of this patient involved high complexity decision making to prevent further life threatening deterioration of the patient 's condition and/or to evaluate & treat vital organ system(s) failure or risk of failure. ATTENDING PHYSICIAN STATEMENT I saw and evaluated the patient. I reviewed the resident's note and discussed the case with the resident. I agree with the resident's findings and plan as documented. SUBJECTIVE: OBJECTIVE: ASSESSMENT AND PLAN:
--- NOTE | 2019-06-20 17:45 | PN ---
Teaching Attending Note Name of Resident: Marvin Ace ATTENDING PHYSICIAN STATEMENT I saw and evaluated the patient. I reviewed the resident's note and discussed the case with the resident. I agree with the resident's findings and plan as documented. Seen and examined; please see resident note for further historical information. I personally verified all alvarez historical information and exam findings. Personally interpreted all imaging and diagnostics and reviewed appropriate consults. I reviewed all labs and vital signs as per resident note and EMR as documented. I agree with the above assessment and plan unless supplemented by myself in the following. Secretions and agitation prohibited extubation today. 10 item review of systems completed and is negative aside from as discussed in the subjective data in my own/the resident documentation. VS, labs, imaging reviewed Intubated and sedated on ventillator resting in bed, vent settings per flowsheet ET Tube in place; IV access noted with no apparent surrounding cellulitis RRR s1/2 no mgr Normal muscle tone, moves all 5 extremities with normal apparent strength Neck is supple, trachea midline, no eden LN Lungs CTAB with sym expansion NT ND +BS no eden organomegaly CN2-12 wnl; no FND but limited given clinical circumstances. NC AT EOMI PERRLA Not agitated, cannot complete full psych assessment No skin breakdown or rashes noted Assessment and plan: Patient seen and examined, problem list remains the same I agree with the resident note as documented. He remains intubated in the ICU for acute hypoxic respiratory failure secondary to HAP versus aspiration pneumonia. Unable to extubate. Will likely try again will need to consider tracheostomy versus other possibilities. He is seizure-free. Full Code
--- NOTE | 2019-06-20 17:54 | PN ---
Teaching Attending Note Name of Resident: Marvin Ace ATTENDING PHYSICIAN STATEMENT I saw and evaluated the patient. I reviewed the resident's note and discussed the case with the resident. I agree with the resident's findings and plan as documented. Seen and examined; please see resident note for further historical information. I personally verified all alvarez historical information and exam findings. Personally interpreted all imaging and diagnostics and reviewed appropriate consults. I reviewed all labs and vital signs as per resident note and EMR as documented. I agree with the above assessment and plan unless supplemented by myself in the following. Extubated to [facility] today; if reintubated high risk of tracheostomy. Continues on antiepileptics, abx, monitoring in ICU. Can downgrade to floor once stability is ascertained. He has no new complaints 10 item review of systems couldn't be completed due to clincial status VS, labs, imaging reviewed Intubated and sedated on ventillator resting in bed, vent settings per flowsheet ET Tube in place; IV access noted with no apparent surrounding cellulitis RRR s1/2 no mgr Normal muscle tone, moves all 5 extremities with normal apparent strength Neck is supple, trachea midline, no ed[place] LN Lungs CTAB with sym expansion NT ND +BS no [place] organomegaly CN2-12 wnl; no FND but limited given clinical circumstances. NC AT EOMI PERRLA Not agitated, cannot complete full psych assessment No skin breakdown or rashes noted Assessment and plan: Patient remains improved off of ventilator. He is currently on high flow and will wean to regular nasal cannula as tolerated. He is not on oxygen at home. Barriers to discharge include use of oxygen, IV antibiotics. Once transition back to his normal regimen, providing his respiratory status remains improved, he can likely be discharged back to the [facility] [place]. Overall, the patient has had a very difficult year with multiple admissions and multiple intubations , particularly in the past several months, for his ongoing issues that mostly related to aspiration pneumonia, though of course HAP is a possibility overall. He will be monitored closely and transition to the floor when clinically appropriate. He has no seizure activity noted and remains on his home antiepileptic drugs. Agitation is not an issue, the patient has responded positively to Precedex in the past should he require reintubated but ultimately if reintubated may end up with tracheostomy. Problem list is ultimately unchanged. Problems include: -Acute Hypoxic Respiratory Failure -History of Epilepsy -History Mental Retardation, Cerebral Palsy -History GERD FULL CODE [facility] HCP ([facility] ON FILE)
[2019-06-20] MEDS: LACTATED RINGERS SOLUTION 1,000 ML/1,000 ML INFUS.BAG IV SCH (18:22)
--- NOTE | 2019-06-20 19:23 | PN ---
Physical Exam: SUBJECTIVE: Patient seen and examined at bedside. Intubated and sedated on propofol, but subsequently extubated and suctioned frequently given alot of secretions. Good urine output overnight. OBJECTIVE: Vital Signs Period Temp Pulse Resp BP Sys/Linares Pulse Ox Last 24 Hr 98.3 F-98.9 F 45-93 10-40 96-134/44-92 95-100 GENERAL: The patient is intubated and sedated with a RASS -5. NECK: supple. LUNGS: Breath sounds reduced at bases. No crackels or wheezing appreciated. HEART: Bradycardic and regular rhythm, S1, S2 without murmur, rub or gallop. ABDOMEN: Soft, nontender, nondistended. EXTREMITIES: 2+ pulses, warm, well-perfused, no edema. NEUROLOGICAL: Cranial nerves II through XII grossly intact. Normal speech, gait not observed. PSYCH: sedated SKIN: Warm, dry, no rashes or lesions noted Laboratory Results - last 24 hr 06/20/19 06/20/19 06:00 06:00 WBC 6.3 RBC 2.97 L Hgb 10.1 L Hct 29.5 L MCV 99.4 H MCH 34.0 H MCHC 34.2 RDW 13.9 Plt Count 332 MPV 8.5 Sodium 140 Potassium 3.7 Chloride 108 H Carbon Dioxide 27 Anion Gap 5 L BUN 6.0 L Creatinine 0.6 Est GFR (CKD-EPI)AfAm 164.25 Est GFR (CKD-EPI)NonAf 141.72 Random Glucose 93 Calcium 9.1 Phosphorus 4.1 Magnesium 1.7 L Total Bilirubin 0.5 AST 11 L ALT 26 Alkaline Phosphatase 122 H Total Protein 6.7 Albumin 2.7 L Active Medications Generic Name Dose Route Start Last Admin Trade Name Freq PRN Reason Stop Dose Admin Acyclovir 400 mg 06/11/19 22:00 06/20/19 09:43 Zovirax Oral Suspension - GT 400 mg BID JORGE Administration Albuterol Sulfate 1 amp 06/13/19 14:31 06/17/19 07:30 Ventolin 0.083% Nebulizer Soln - NEB 1 amp Q6H PRN Administration WHEEZING Bacitracin 1 applic 06/11/19 22:00 06/20/19 09:36 Bacitracin - TP 1 applic BID JORGE Administration Baclofen 10 mg 06/11/19 22:00 06/20/19 09:37 Lioresal - GT 10 mg BID JORGE Administration Chlorhexidine Gluconate 1 applic 06/11/19 22:00 06/19/19 22:54 Hibiclens For Decolonization - TP 1 applic HS JORGE Administration Clobazam 10 mg 06/11/19 22:00 06/19/19 22:54 Onfi - GT 10 mg HS JORGE Administration Clobazam 5 mg 06/12/19 10:00 06/20/19 09:41 Onfi - GT 5 mg DAILY JORGE Administration Clonazepam 1.5 mg 06/11/19 22:00 06/20/19 14:01 Klonopin - GT Not Given TID JORGE Docusate Sodium 100 mg 06/17/19 21:53 06/18/19 09:35 Colace Liquid - PO 100 mg DAILY PRN Administration CONSTIPATION Famotidine 10 mg 06/11/19 22:00 06/20/19 09:41 Pepcid NGT 10 mg BID JORGE Administration Fluticasone Propionate 2 spray 06/12/19 07:00 06/20/19 06:07 Flonase - NS 2 sprays AM JORGE Administration Heparin Sodium (Porcine) 5,000 unit 06/11/19 14:00 06/20/19 14:00 Heparin - SQ 5,000 unit TID JORGE Administration Piperacillin Sod/Tazobactam 50 mls @ 100 mls/hr 06/13/19 08:00 06/20/19 18:21 Sod 3.375 gm/ Dextrose IVPB 100 mls/hr Q8H-IV JORGE Administration Protocol Lactated Ringer's 1,000 ml in 1,000 mls @ 75 mls/hr 06/14/19 15:30 06/20/19 18:22 Lactated Ringers Solution IV 75 mls/hr ASDIR JORGE Administration Lactobacillus Acidophilus 1 tab 06/11/19 22:00 06/19/19 23:07 Bacid - GT 1 tab HS JORGE Administration Lamotrigine 200 mg 06/11/19 22:00 06/20/19 09:37 Lamictal - PO 200 mg BID JORGE Administration Magnesium Hydroxide 20 ml 06/11/19 22:00 06/20/19 09:38 Milk Of Magnesia - GT 20 ml BID JORGE Administration Multivitamins/Minerals 15 ml 06/11/19 22:00 06/19/19 22:57 Certavite-Antioxidant Liquid GT 15 ml HS JORGE Administration Phenobarbital 45 mg 06/15/19 13:00 06/20/19 09:42 Phenobarbital Liquid - PO 45 mg BID JORGE Administration Polyethylene Glycol 17 gm 06/17/19 20:00 06/20/19 09:39 Miralax (For Daily Use) - PO 17 grams DAILY JORGE Administration Sodium Chloride 2 spray 06/11/19 22:00 06/20/19 09:39 [facility] - NS 2 spray BID JOREG Administration ASSESSMENT/PLAN: 24 y/o M from [place] with hx Cerebral Palsy, Developmental Delay, cognitive impairment, functional quadriplegia, seizure disorder, Hx of herpes encephalitis , GERD, Asthma/reactive airway disease, and Hx of aspiration pneumonia, recently discharged from [facility] 06/09 s/p Pseudomonal PNA and flu treated (with Tamiflu, Zosyn, Steroid) requiring Intubation/Ventilation, now presents with [place] #Acute Hypoxic Respiratory failure with sepsis 2/2 likely aspiration PNA pt extubated today placed on HFO2. ICU team monitoring continue zosyn day 7 keep SaO2 >90% on vent settings ID (Dr Harrison) on case CXR- some atelectasis vs infiltrates on left base #Hypokalemia resolved c/w LR 75 cc/hr #Seizure disorder continue anti-seizure regimen Clonazepam, Lamotrigene, Phenobarbital #Hx of herpes Encephalitis maintained on Acyclovir # transaminases US Abdo - no acute pathology. DVT ppx: Hep TID FEN monitor lytes Jevity LR at 75 Dispo: monitor ICU, extubated likely will require trach if needs intubation again. Visit type - Emergency Visit Emergency Visit: Yes ED Registration Date: 06/11/19 Care time: The patient presented to the Emergency Department on the above date and was hospitalized for further evaluation of their emergent condition. - New Patient This patient is new to me today: No - Critical Care Critical Care patient: Yes Total Critical Care Time (in minutes): 40 Critical Care Statement: The care of this patient involved high complexity decision making to prevent further life threatening deterioration of the patient 's condition and/or to evaluate & treat vital organ system(s) failure or risk of failure. - Discharge Referral Referred to [facility] Med P.C.: No ATTENDING PHYSICIAN STATEMENT I saw and evaluated the patient. I reviewed the resident's note and discussed the case with the resident. I agree with the resident's findings and plan as documented. SUBJECTIVE: OBJECTIVE: ASSESSMENT AND PLAN:
[2019-06-20] MEDS: CHLORHEXIDINE GLUCONATE 4% CLEANSER FOR DECOLONIZATION TP SCH (22:00)
[2019-06-20] MEDS: LACTOBACILLUS ACIDOPHILUS 1 TABLET GT SCH (23:23)
[2019-06-20] MEDS: MULTIVIT-MINERALS ORAL LIQUID GT SCH (23:26)
[2019-06-21] MEDS ORDERED: DEXTROSE 5%-WATER - 50 ML IVPB ONE ×3 (00:59→18:01)
[2019-06-21] MEDS ORDERED: PIPERACILLIN/TAZOBACTAM 3.375 GM VIAL IVPB ONE ×3 (00:59→18:01)
[2019-06-21] MEDS: PIPERACILLIN/TAZOB 3.375 GM 3.375 GM in DEXTROSE 5%-WATER - 50 ML IVPB SCH ×3 (01:02→18:36)
[2019-06-21] MEDS: clonazePAM 0.5 MG TABLET GT SCH ×3 (05:55→21:36)
[2019-06-21] MEDS: HEPARIN NA (PORCINE) 5,000 UNITS/ML 1ML VIAL SQ SCH ×3 (05:55→21:35)
[2019-06-21 07:42] LABS: HEMATOCRIT 32.2 % (35.4-49); HEMOGLOBIN 11.2 GM/dL (11.7-16.9); MCH 34.4 pg (25.7-33.7); MCHC 34.7 g/dl (32.0-35.9); MEAN CELL VOLUME 99.1 fl (80-96); MEAN PLT VOLUME 8.7 fl (7.5-11.1); PLATELET COUNT 353 K/MM3 (134-434); RBC 3.25 M/mm3 (4.00-5.60); RDW 13.9 % (11.9-15.9); WHITE BLOOD COUNT 9.3 K/mm3 (4.0-10.0)
[2019-06-21 07:57] LABS: ALBUMIN 2.7 g/dl (3.4-5.0); BILIRUBIN,TOTAL 0.3 mg/dL (0.2-1); BLOOD UREA NITROGEN 6.6 mg/dL (7-18); CALCIUM 8.8 mg/dL (8.5-10.1); CREATININE 0.7 mg/dL (0.55-1.3); MAGNESIUM 2.1 mg/dL (1.8-2.4); PHOSPHOROUS 3.8 mg/dL (2.5-4.9); POTASSIUM 3.8 mmol/L (3.5-5.1); TOT PROT 7.1 g/dl (6.4-8.2)
[2019-06-21] MEDS ORDERED: PT OWN MED DRAWER 7, Y5N ONE ×2 (10:44→21:32)
[2019-06-21] MEDS: FLUTICASONE PROP 0.05% 16 GM NASAL SPRAY NS SCH (10:51)
[2019-06-21] MEDS: BACITRACIN 15 GM TUBE TOPICAL OINTMENT TP SCH ×2 (10:51→21:34)
[2019-06-21] MEDS: POLYETHYLENE GLYCOL 3350 119 GM BTL PO SCH (10:53)
[2019-06-21] MEDS: MAGNESIUM HYDROX 2400MG/30ML ORAL SUSPENSION 30 ML CUP GT SCH ×2 (10:53→21:37)
[2019-06-21] MEDS: cloBAZam 10 MG TABLET GT SCH ×2 (10:54→21:37)
[2019-06-21] MEDS: SODIUM CHLORIDE NASAL SPRAY 44 ML BOTTLE NS SCH ×2 (10:54→22:22)
[2019-06-21] MEDS: PHENobarbital 20 MG/5 ML UNIT-DOSE CUP PO SCH ×2 (10:55→21:38)
[2019-06-21] MEDS: ACYCLOVIR 200 MG/5 ML LIQUID GT SCH ×2 (10:56→22:23)
[2019-06-21] MEDS: FAMOTIDINE 40 MG/5 ML ORAL SUSPENSION NGT SCH ×2 (10:57→22:23)
[2019-06-21] MEDS: lamoTRIgine 100 MG TABLET PO SCH ×2 (10:58→22:22)
[2019-06-21] MEDS: BACLOFEN 10 MG TABLET (FP) GT SCH ×2 (10:59→22:22)
[2019-06-21] MEDS ORDERED: ALBUTEROL SO4 0.083% IH SOL 2.5 MG/3 ML VIAL.NEB. NEB SCH (12:16)
[2019-06-21] MEDS: methylPREDNISolone NA SUCC 40 MG/1 ML VIAL IVPUSH SCH (13:28)
--- NOTE | 2019-06-21 13:34 | PN ---
Teaching Attending Note Name of Resident: Angeline Sims ATTENDING PHYSICIAN STATEMENT I saw and evaluated the patient. I reviewed the resident's note and discussed the case with the resident. I agree with the resident's findings and plan as documented. SUBJECTIVE: Patient seen and examined in the ICU. Remains extubated on HFOT. Overall less secretions. CXR: Left atelectasis Intake & Output 06/18/19 06/19/19 06/20/19 06/21/19 23:59 23:59 23:59 23:59 Intake Total 2867.8 2104 2972 468 Output Total 2400 1850 1165 100 Balance 467.8 254 1807 368 Weight 89 lb 15.178 oz 89 lb 8.123 oz 89 lb 4.595 oz 92 lb 13.034 oz Last Vital Signs Temp Pulse Resp BP Pulse Ox 98.3 F 86 21 H 101/49 L 99 06/21/19 02:00 06/21/19 09:50 06/21/19 06:00 06/21/19 06:00 06/21/19 09:50 Active Medications Acyclovir (Zovirax Oral Suspension -) 400 mg GT BID [facility] Last Admin: 06/21/19 10:56 Dose: 400 mg Albuterol Sulfate (Ventolin 0.083% Nebulizer Soln -) 1 amp NEB Q6H JORGE Bacitracin (Bacitracin -) 1 applic TP BID [facility] Last Admin: 06/21/19 10:51 Dose: 1 applic Baclofen (Lioresal -) 10 mg GT BID [facility] Last Admin: 06/21/19 10:59 Dose: 10 mg Chlorhexidine Gluconate (Hibiclens For Decolonization -) 1 applic TP HS [facility] Last Admin: 06/20/19 22:00 Dose: 1 applic Clobazam (Onfi -) 10 mg GT HS [facility] Last Admin: 06/20/19 23:23 Dose: 10 mg Clobazam (Onfi -) 5 mg GT DAILY [facility] Last Admin: 06/21/19 10:54 Dose: 5 mg Clonazepam (Klonopin -) 1.5 mg GT TID [facility] Last Admin: 06/21/19 05:55 Dose: 1.5 mg Docusate Sodium (Colace Liquid -) 100 mg PO DAILY PRN PRN Reason: CONSTIPATION Last Admin: 02/08/20 09:35 Dose: 100 mg Famotidine (Pepcid) 10 mg NGT BID [facility] Last Admin: 06/21/19 10:57 Dose: 10 mg Fluticasone Propionate (Flonase -) 2 spray NS AM [facility] Last Admin: 06/21/19 10:51 Dose: 2 sprays Heparin Sodium (Porcine) (Heparin -) 5,000 unit SQ TID JORGE Last Admin: 06/21/19 05:55 Dose: 5,000 unit Piperacillin Sod/Tazobactam (Sod 3.375 gm/ Dextrose) 50 mls @ 100 mls/hr IVPB Q8H-IV JORGE; Protocol Last Admin: 06/21/19 10:50 Dose: 100 mls/hr Lactobacillus Acidophilus (Bacid -) 1 tab GT HS [facility] Last Admin: 06/20/19 23:23 Dose: 1 tab Lamotrigine (Lamictal -) 200 mg PO BID [facility] Last Admin: 06/21/19 10:58 Dose: 200 mg Magnesium Hydroxide (Milk Of Magnesia -) 20 ml GT BID [facility] Last Admin: 06/21/19 10:53 Dose: 20 ml Methylprednisolone Sodium Succinate (Solu-Medrol -) 40 mg IVPUSH Q12H JORGE Multivitamins/Minerals (Certavite-Antioxidant Liquid) 15 ml GT HS [facility] Last Admin: 06/20/19 23:26 Dose: 15 ml Phenobarbital (Phenobarbital Liquid -) 45 mg PO BID [facility] Last Admin: 06/21/19 10:55 Dose: 45 mg Polyethylene Glycol (Miralax (For Daily Use) -) 17 gm PO DAILY [facility] Last Admin: 06/21/19 10:53 Dose: 17 grams Sodium Chloride ([place]al [place] -) 2 spray NS BID [facility] Last Admin: 06/21/19 10:54 Dose: 2 spray GEN: Extubated on HFOT PULM: Bilateral scattered rhonchi, diminished on the Left CV: nml S1 S2, RR, unable to appreciate any G/M/R ABD: (+) BS, PEG, S/S N/T N/D X4Q EXT: contracted, + PP, WWPX4, (-) edema Laboratory Results - last 24 hr 06/21/19 06/21/19 06/21/19 06:00 06:00 12:51 WBC 9.3 RBC 3.25 L Hgb 11.2 L Hct 32.2 L MCV 99.1 H MCH 34.4 H MCHC 34.7 RDW 13.9 Plt Count 353 MPV 8.7 Sodium 141 Potassium 3.8 Chloride 109 H Carbon Dioxide 27 Anion Gap 6 L BUN 6.6 L Creatinine 0.7 Est GFR (CKD-EPI)AfAm 154.17 Est GFR (CKD-EPI)NonAf 133.02 POC Glucometer 106 Random Glucose 91 Calcium 8.8 Phosphorus 3.8 Magnesium 2.1 Total Bilirubin 0.3 AST 13 L ALT 24 Alkaline Phosphatase 126 H Total Protein 7.1 Albumin 2.7 L ASSESS: Acute Hypoxic Respiratory Failure Pneumonia likely Aspiration Bacteremia Cerebral Palsy Mental Retardation Seizure Disorder GERD Anemia PLAN: - Chest PT - BD TX - Short course of Medrol - Continue antibiotics - Cont AED's - Strict I's & O's - Trend BUN/Cr - Replete e-lyets prn - TFs - DVT/GI prophylaxis - Requires continued ICU monitoring for tenuous respiratory status Dr Price Critical care time spent in reviewing chart, evaluating patient and formulating plan - 36 minutes.
--- NOTE | 2019-06-21 14:28 | PN ---
Physical Exam: SUBJECTIVE: Patient seen and examined in the morning. No acute events overnight. Pt extubated yesterday, doing well on HFOT @ 40% flow, 70% O2. Decreased secretions. OBJECTIVE: Vital Signs Period Temp Pulse Resp BP Sys/Linares Pulse Ox Last 24 Hr 98.3 F-98.8 F 52-93 21-40 101-116/47-70 99 GENERAL: The patient is awake and alert, in no acute distress. Extuabted and on HFOT HEAD: Normal with no signs of trauma. EYES: PERRL, extraocular movements intact, sclera anicteric, conjunctiva clear. No ptosis. ENT: Ears normal, nares patent, minimal amounts of secretions with oral thrush. NECK: Trachea midline, full range of motion, supple. LUNGS: Decreased breath sounds on L. Diffuse ronchi bilaterally. No wheezes, no crackles, no accessory muscle use. HEART: Regular rate and rhythm, S1, S2 without murmur, rub or gallop. ABDOMEN: PEG tube present, no erythema around site. mild distension. Soft, nontender, normoactive bowel sounds, no guarding, no rebound, no masses. EXTREMITIES: Contracted, 2+ pulses, warm, well-perfused, no edema. NEUROLOGICAL: Unable to assess SKIN: Diffuse rash on chest. Laboratory Results - last 24 hr CBC, BMP 06/21/19 06:00 06/21/19 06:00 Active Medications Acyclovir (Zovirax Oral Suspension -) 400 mg GT BID [facility] Last Admin: 06/21/19 10:56 Dose: 400 mg Albuterol Sulfate (Ventolin 0.083% Nebulizer Soln -) 1 amp NEB Q6H JORGE Bacitracin (Bacitracin -) 1 applic TP BID [facility] Last Admin: 06/21/19 10:51 Dose: 1 applic Baclofen (Lioresal -) 10 mg GT BID [facility] Last Admin: 06/21/19 10:59 Dose: 10 mg Chlorhexidine Gluconate (Hibiclens For Decolonization -) 1 applic TP HS [facility] Last Admin: 06/20/19 22:00 Dose: 1 applic Clobazam (Onfi -) 10 mg GT HS [facility] Last Admin: 06/20/19 23:23 Dose: 10 mg Clobazam (Onfi -) 5 mg GT DAILY [facility] Last Admin: 06/21/19 10:54 Dose: 5 mg Clonazepam (Klonopin -) 1.5 mg GT TID [facility] Last Admin: 06/21/19 14:12 Dose: 1.5 mg Docusate Sodium (Colace Liquid -) 100 mg PO DAILY PRN PRN Reason: CONSTIPATION Last Admin: 06/18/19 09:35 Dose: 100 mg Famotidine (Pepcid) 10 mg NGT BID [facility] Last Admin: 06/21/19 10:57 Dose: 10 mg Fluticasone Propionate (Flonase -) 2 spray NS AM [facility] Last Admin: 06/21/19 10:51 Dose: 2 sprays Heparin Sodium (Porcine) (Heparin -) 5,000 unit SQ TID [facility] Last Admin: 06/21/19 13:57 Dose: 5,000 unit Piperacillin Sod/Tazobactam (Sod 3.375 gm/ Dextrose) 50 mls @ 100 mls/hr IVPB Q8H-IV JORGE; Protocol Last Admin: 06/21/19 10:50 Dose: 100 mls/hr Lactobacillus Acidophilus (Bacid -) 1 tab GT HS [facility] Last Admin: 06/20/19 23:23 Dose: 1 tab Lamotrigine (Lamictal -) 200 mg PO BID [facility] Last Admin: 06/21/19 10:58 Dose: 200 mg Magnesium Hydroxide (Milk Of Magnesia -) 20 ml GT BID [facility] Last Admin: 06/21/19 10:53 Dose: 20 ml Methylprednisolone Sodium Succinate (Solu-Medrol -) 40 mg IVPUSH Q12H [facility] Last Admin: 06/21/19 13:28 Dose: 40 mg Multivitamins/Minerals (Certavite-Antioxidant Liquid) 15 ml GT HS [facility] Last Admin: 06/20/19 23:26 Dose: 15 ml Phenobarbital (Phenobarbital Liquid -) 45 mg PO BID [facility] Last Admin: 06/21/19 10:55 Dose: 45 mg Polyethylene Glycol (Miralax (For Daily Use) -) 17 gm PO DAILY [facility] Last Admin: 06/21/19 10:53 Dose: 17 grams Sodium Chloride ([place] Nasal [place] -) 2 spray NS BID [facility] Last Admin: 06/21/19 10:54 Dose: 2 spray ASSESSMENT/PLAN: Patient is a 24 year old male with PMH of CP, MR, epilepsy, herpes encephalitis , GERD, who presents with aspiration pneumonia requiring intubation. Neuro -PMH of cerebral palsy, MR, and epilepsy -Continue home meds: diazepam, clobazam, clonazepam, lamictal, phenobarbital -D/c'ed propofol drip Cardiovascular -Pt was noted to have be bradycardic during previous admission on cardiac monitoring -EKG has not shown any acute changes or abnormalities. -Continuous cardiac monitoring Pulmonary -Acute hypoxic respiratory failure 2/2 aspiration pneumonia -Pt successfully extubated yesterday -HFOT @ 40% flow, 70% O2, attempt to wean as tolerated -CXR today: total opacification of L hemithorax compatible w/atelectasis and fluid -Chest Physiotherapy -Albuterol treatment prn -Solumedrol 40mg BID -F/u CXR in afternoon, if no improvement with treatment then administer nasal trumpet GI -PEG tube in place, continue tube feeding -No acute issues, will continue to monitor Renal -Lane catheter in placed 06/03, changed to external 06/20 -Monitor electrolytes and replete PRN -Strict I's & O's ID -PMH herpes encephalitis -Continue acyclovir -Continue zoysn 3.375gm Q8H (Day 9) -- first dose 06/13/19 -Sputum cx: pseudomonas resistant to aztreonam -Blood cx: neg for 72 hours, cont to f/u F:75 ml/hr LR E: Monitor CMP N: [employer] Feed Lines: Intubated 06/17/2019. Extubated 06/20/2019. Dispo: We will continue to follow the patient. Thank you for this consultative opportunity. Visit type - Emergency Visit Emergency Visit: No - New Patient This patient is new to me today: Yes Date on this admission: 06/21/19 - Critical Care Critical Care patient: Yes Total Critical Care Time (in minutes): 45 Critical Care Statement: The care of this patient involved high complexity decision making to prevent further life threatening deterioration of the patient 's condition and/or to evaluate & treat vital organ system(s) failure or risk of failure. ATTENDING PHYSICIAN STATEMENT I saw and evaluated the patient. I reviewed the resident's note and discussed the case with the resident. I agree with the resident's findings and plan as documented. SUBJECTIVE: OBJECTIVE: ASSESSMENT AND PLAN:
--- NOTE | 2019-06-21 15:32 | PN ---
Physical Exam: SUBJECTIVE: Patient seen and examined at bedside s/p extubation on HFO2 70%. Pt producing less secretions. OBJECTIVE: Vital Signs Period Temp Pulse Resp BP Sys/Linares Pulse Ox Last 24 Hr 98.3 F-98.8 F 52-93 21-40 101-116/47-70 99 GENERAL: The patient is awake and alert, in no acute distress. s/p Extubation and on HFOT 40% flow, 70% FIO2 ENT: ulcer on right lower lip, with minimal amounts of secretions and oral thrush. NECK: supple. LUNGS: Decreased breath sounds on Left side, No wheezes, no crackles, no accessory muscle use. HEART: Regular rate and rhythm, S1, S2 without murmur, rub or gallop. ABDOMEN: PEG tube present, no erythema around site. mild distension, no guarding , no rebound, no masses. EXTREMITIES: Contracted, 2+ pulses, warm, well-perfused, no edema. NEUROLOGICAL: Unable to assess SKIN: Diffuse rash on chest. Laboratory Results - last 24 hr 06/21/19 06/21/19 06/21/19 06:00 06:00 12:51 WBC 9.3 RBC 3.25 L Hgb 11.2 L Hct 32.2 L MCV 99.1 H MCH 34.4 H MCHC 34.7 RDW 13.9 Plt Count 353 MPV 8.7 Sodium 141 Potassium 3.8 Chloride 109 H Carbon Dioxide 27 Anion Gap 6 L BUN 6.6 L Creatinine 0.7 Est GFR (CKD-EPI)AfAm 154.17 Est GFR (CKD-EPI)NonAf 133.02 POC Glucometer 106 Random Glucose 91 Calcium 8.8 Phosphorus 3.8 Magnesium 2.1 Total Bilirubin 0.3 AST 13 L ALT 24 Alkaline Phosphatase 126 H Total Protein 7.1 Albumin 2.7 L Active Medications Generic Name Dose Route Start Last Admin Trade Name Freq PRN Reason Stop Dose Admin Acyclovir 400 mg 06/11/19 22:00 06/21/19 10:56 Zovirax Oral Suspension - GT 400 mg BID JORGE Administration Albuterol Sulfate 1 amp 06/21/19 15:27 Ventolin 0.083% Nebulizer Soln - NEB RQID JORGE Bacitracin 1 applic 06/11/19 22:00 06/21/19 10:51 Bacitracin - TP 1 applic BID JORGE Administration Baclofen 10 mg 06/11/19 22:00 06/21/19 10:59 Lioresal - GT 10 mg BID JORGE Administration Chlorhexidine Gluconate 1 applic 06/11/19 22:00 06/20/19 22:00 Hibiclens For Decolonization - TP 1 applic HS JORGE Administration Clobazam 10 mg 06/11/19 22:00 06/20/19 23:23 Onfi - GT 10 mg HS JORGE Administration Clobazam 5 mg 06/12/19 10:00 06/21/19 10:54 Onfi - GT 5 mg DAILY JORGE Administration Clonazepam 1.5 mg 06/11/19 22:00 06/21/19 14:12 Klonopin - GT 1.5 mg TID JORGE Administration Docusate Sodium 100 mg 06/17/19 21:53 06/18/19 09:35 Colace Liquid - PO 100 mg DAILY PRN Administration CONSTIPATION Famotidine 10 mg 06/11/19 22:00 06/21/19 10:57 Pepcid NGT 10 mg BID JORGE Administration Fluticasone Propionate 2 spray 06/12/19 07:00 06/21/19 10:51 Flonase - NS 2 sprays AM JORGE Administration Heparin Sodium (Porcine) 5,000 unit 06/11/19 14:00 06/21/19 13:57 Heparin - SQ 5,000 unit TID JORGE Administration Piperacillin Sod/Tazobactam 50 mls @ 100 mls/hr 06/13/19 08:00 06/21/19 10:50 Sod 3.375 gm/ Dextrose IVPB 100 mls/hr Q8H-IV JORGE Administration Protocol Lactobacillus Acidophilus 1 tab 06/11/19 22:00 06/20/19 23:23 Bacid - GT 1 tab HS JORGE Administration Lamotrigine 200 mg 06/11/19 22:00 06/21/19 10:58 Lamictal - PO 200 mg BID JORGE Administration Magnesium Hydroxide 20 ml 06/11/19 22:00 06/21/19 10:53 Milk Of Magnesia - GT 20 ml BID JORGE Administration Methylprednisolone Sodium Succinate 40 mg 06/21/19 12:30 06/21/19 13:28 Solu-Medrol - IVPUSH 40 mg Q12H JORGE Administration Multivitamins/Minerals 15 ml 06/11/19 22:00 06/20/19 23:26 Certavite-Antioxidant Liquid GT 15 ml HS JORGE Administration Phenobarbital 45 mg 06/15/19 13:00 06/21/19 10:55 Phenobarbital Liquid - PO 45 mg BID JORGE Administration Polyethylene Glycol 17 gm 06/17/19 20:00 06/21/19 10:53 Miralax (For Daily Use) - PO 17 grams DAILY JORGE Administration Sodium Chloride 2 spray 06/11/19 22:00 06/21/19 10:54 [place] - NS 2 spray BID JORGE Administration ASSESSMENT/PLAN: 24 y/o M from [place] with hx Cerebral Palsy, Developmental Delay, cognitive impairment, functional quadriplegia, seizure disorder, Hx of herpes encephalitis , GERD, Asthma/reactive airway disease, and Hx of aspiration pneumonia, recently discharged from [facility] 06/09 s/p Pseudomonal PNA and flu treated (with Tamiflu, Zosyn, Steroid) requiring Intubation/Ventilation, now presents with [place] #Acute Hypoxic Respiratory failure with sepsis 2/2 likely aspiration PNA pt extubated today placed on HFO2 ICU team monitoring continue zosyn day 9 keep SaO2 >90% on vent settings ID (Dr Harrison) on case await recs on abx CXR- showing total opacification of L hemithorax compatible w/atelectasis and fluid, with increased rt lung markings. -Chest Physiotherapy -Albuterol treatment prn -Solumedrol 40mg BID -F/u CXR in afternoon, if no improvement with treatment then icu team will administer nasal trumpet for mucus plug. #Hypokalemia resolved c/w LR 75 cc/hr #Seizure disorder continue anti-seizure regimen Clonazepam, Lamotrigene, Phenobarbital #Hx of herpes Encephalitis maintained on Acyclovir # transaminases US Abdo - no acute pathology. DVT ppx: Hep TID FEN monitor lytes Jevity LR at 75 Dispo: monitor ICU, extubated likely will require trach if needs intubation again. Visit type - Emergency Visit Emergency Visit: Yes ED Registration Date: 06/11/19 Care time: The patient presented to the Emergency Department on the above date and was hospitalized for further evaluation of their emergent condition. - New Patient This patient is new to me today: No - Critical Care Critical Care patient: Yes Total Critical Care Time (in minutes): 40 Critical Care Statement: The care of this patient involved high complexity decision making to prevent further life threatening deterioration of the patient 's condition and/or to evaluate & treat vital organ system(s) failure or risk of failure. - Discharge Referral Referred to [facility] Med P.C.: No ATTENDING PHYSICIAN STATEMENT I saw and evaluated the patient. I reviewed the resident's note and discussed the case with the resident. I agree with the resident's findings and plan as documented. SUBJECTIVE: OBJECTIVE: ASSESSMENT AND PLAN:
[2019-06-21] MEDS: ALBUTEROL SO4 0.083% IH SOL 2.5 MG/3 ML VIAL.NEB. NEB SCH ×2 (15:35→21:15)
--- NOTE | 2019-06-21 20:54 | PN ---
Teaching Attending Note Name of Resident: Nash Kennedy ATTENDING PHYSICIAN STATEMENT I saw and evaluated the patient. I reviewed the resident's note and discussed the case with the resident. I agree with the resident's findings and plan as documented. SUBJECTIVE: Non-verbal, unable to participate in medical interview. OBJECTIVE: Afebrile, Hemodynamically stable. Smiling this AM. On HFOT. Last Vital Signs Temp Pulse Resp BP Pulse Ox 99.4 F 73 22 H 98/52 L 99 06/21/19 16:00 06/21/19 18:00 06/21/19 18:00 06/21/19 18:00 06/21/19 09:50 HEENT - Small ulcer on bottom lip. No collection/erythema. Heart - S1, S2, RRR Lungs - good air entry bilaterally Abdomen - soft, non-tender. PEG in situ. Extremities - wasting, contractures LEs. Laboratory Results - last 24 hr 06/21/19 06/21/19 06/21/19 06:00 06:00 12:51 WBC 9.3 RBC 3.25 L Hgb 11.2 L Hct 32.2 L MCV 99.1 H MCH 34.4 H MCHC 34.7 RDW 13.9 Plt Count 353 MPV 8.7 Sodium 141 Potassium 3.8 Chloride 109 H Carbon Dioxide 27 Anion Gap 6 L BUN 6.6 L Creatinine 0.7 Est GFR (CKD-EPI)AfAm 154.17 Est GFR (CKD-EPI)NonAf 133.02 POC Glucometer 106 Random Glucose 91 Calcium 8.8 Phosphorus 3.8 Magnesium 2.1 Total Bilirubin 0.3 AST 13 L ALT 24 Alkaline Phosphatase 126 H Total Protein 7.1 Albumin 2.7 L 06/21/19 18:33 WBC RBC Hgb Hct MCV MCH MCHC RDW Plt Count MPV Sodium Potassium Chloride Carbon Dioxide Anion Gap BUN Creatinine Est GFR (CKD-EPI)AfAm Est GFR (CKD-EPI)NonAf POC Glucometer 114 Random Glucose Calcium Phosphorus Magnesium Total Bilirubin AST ALT Alkaline Phosphatase Total Protein Albumin Current Medications Generic Name Dose Route Start Last Admin Trade Name Freq PRN Reason Stop Dose Admin Acyclovir 400 mg 06/11/19 22:00 06/21/19 10:56 Zovirax Oral Suspension - GT 400 mg BID JORGE Administration Albuterol Sulfate 1 amp 06/21/19 15:27 02/11/20 15:35 Ventolin 0.083% Nebulizer Soln - NEB 1 amp RQID JORGE Administration Bacitracin 1 applic 06/11/19 22:00 06/21/19 10:51 Bacitracin - TP 1 applic BID JORGE Administration Baclofen 10 mg 06/11/19 22:00 06/21/19 10:59 Lioresal - GT 10 mg BID JORGE Administration Chlorhexidine Gluconate 1 applic 06/11/19 22:00 06/20/19 22:00 Hibiclens For Decolonization - TP 1 applic HS JORGE Administration Clobazam 10 mg 06/11/19 22:00 06/20/19 23:23 Onfi - GT 10 mg HS JORGE Administration Clobazam 5 mg 06/12/19 10:00 06/21/19 10:54 Onfi - GT 5 mg DAILY JORGE Administration Clonazepam 1.5 mg 06/11/19 22:00 06/21/19 14:12 Klonopin - GT 1.5 mg TID JORGE Administration Docusate Sodium 100 mg 06/17/19 21:53 06/18/19 09:35 Colace Liquid - PO 100 mg DAILY PRN Administration CONSTIPATION Famotidine 10 mg 06/11/19 22:00 06/21/19 10:57 Pepcid NGT 10 mg BID JORGE Administration Fluticasone Propionate 2 spray 06/12/19 07:00 06/21/19 10:51 Flonase - NS 2 sprays AM JORGE Administration Heparin Sodium (Porcine) 5,000 unit 06/11/19 14:00 06/21/19 13:57 Heparin - SQ 5,000 unit TID JORGE Administration Piperacillin Sod/Tazobactam 50 mls @ 100 mls/hr 06/13/19 08:00 06/21/19 18:36 Sod 3.375 gm/ Dextrose IVPB 100 mls/hr Q8H-IV JORGE Administration Protocol Lactobacillus Acidophilus 1 tab 06/11/19 22:00 06/20/19 23:23 Bacid - GT 1 tab HS JORGE Administration Lamotrigine 200 mg 06/11/19 22:00 06/21/19 10:58 Lamictal - PO 200 mg BID JORGE Administration Magnesium Hydroxide 20 ml 06/11/19 22:00 06/21/19 10:53 Milk Of Magnesia - GT 20 ml BID JORGE Administration Methylprednisolone Sodium Succinate 40 mg 06/21/19 12:30 06/21/19 13:28 Solu-Medrol - IVPUSH 40 mg Q12H JORGE Administration Multivitamins/Minerals 15 ml 06/11/19 22:00 06/20/19 23:26 Certavite-Antioxidant Liquid GT 15 ml HS JORGE Administration Phenobarbital 45 mg 06/15/19 13:00 06/21/19 10:55 Phenobarbital Liquid - PO 45 mg BID JORGE Administration Polyethylene Glycol 17 gm 06/17/19 20:00 06/21/19 10:53 Miralax (For Daily Use) - PO 17 grams DAILY JORGE Administration Sodium Chloride 2 spray 06/11/19 22:00 06/21/19 10:54 [place] Nasal [place] - NS 2 spray BID JORGE Administration Home Medications Medication Instructions Recorded Acyclovir 400 mg GT BID 04/25/17 Baclofen 10 mg GT BID 04/25/17 Clobazam [Onfi -] 10 mg GT HS 04/25/17 Clonazepam 1.5 mg GT TID 04/25/17 Lactobacillus Acidophilus 1 each GT HS 04/25/17 [Acidophilus] Lamotrigine 200 mg GT BID 04/25/17 Multivitamin [Poly-Vitamin] 1 each GT HS 04/25/17 Phenobarbital 48.6 mg GT BID 04/25/17 Ranitidine [Zantac -] 75 mg GT BID #0 tab 03/29/18 Diazepam Rectal Gel [Diastat 7.5 mg SD PRN PRN 05/23/18 Rectal Gel -] Protein Supplement [Promod] 946 ml GT DAILY 05/23/18 Budesonide [Pulmicort 0.25 mg 1 neb IH BID 02/05/19 Nebulizer -] Fluticasone Prop 0.05% Nasal 2 spray NS AM 02/05/19 [Flonase -] Magnesium Hydrox 2400MG/30Ml [Milk 20 ml GT BID 02/05/19 of Magnesia -] Albuterol 2.5/Ipratropium 0.5 1 neb IH QID PRN #30 neb 02/14/19 [Duoneb -] Clobazam [Onfi -] 5 mg GT DAILY #30 tablet MDD 5mg 02/14/19 /24h Bacitracin - [Bacitracin Topical 1 applic TP BID 06/01/19 Ointment -] Sodium Chloride/Aloe Vera [[place] 22 ml NS BID 06/01/19 Saline Nasal Gel [place]] predniSONE [Deltasone -] 10 mg PEG DAILY #2 tablet 06/09/19 predniSONE [Deltasone -] 20 mg PEG DAILY #6 tablet 06/09/19 ASSESSMENT AND PLAN: 24 year old male [place] resident with history of Cerebral Palsy, Developmental Delay, cognitive impairment, functional quadriplegia, seizure disorder, Hx of herpes encephalitis, GERD, Asthma/reactive airway disease, and Hx of aspiration pneumonia, recently discharged from [facility] 06/09 after being treated (with Tamiflu, Zosyn, Steroid) for resp failure sec to Influenza and Pseudomonal Pneumonia requiring Intubation/Ventilation, re-presents from [place] with respiratory failure. CT Chest - bilateral infiltrates 1. Acute Hypoxic Respiratory failure and Sepsis secondary to recurrent/ persistent Aspiration Pneumonia s/p Intubation 06/11/19, Extubation 06/20/19. now on HFOT. CXR - almost full opacification L lung - needs deep suctioning ?mucus plug Sputum Cx again Pseudomonas positive Recently completed course of Tamiflu for Influenza A Urine Legionella neg Blood Cx - 1 bottle pos for gram pos cocci in clusters, likely contaminant. Repeat Blood Cx negative. Leukocytosis resolved. Continue Zosyn. ID following. 2. Seizure disorder - continue anti-seizure regimen (Clonazepam, Lamotrigene, Phenobarbital) 3. Hx of Herpes Encephalitis - maintained on Acyclovir 4. Recent elevation in transaminases ? sepsis related/Abx related - resolved. US Abdo - no acute pathology. DVT PX - Heparin SQ GI Px - Famotidine
[2019-06-21] MEDS: LACTOBACILLUS ACIDOPHILUS 1 TABLET GT SCH (21:34)
[2019-06-21] MEDS: CHLORHEXIDINE GLUCONATE 4% CLEANSER FOR DECOLONIZATION TP SCH (21:35)
[2019-06-21] MEDS: MULTIVIT-MINERALS ORAL LIQUID GT SCH (22:21)
[2019-06-22] MEDS: methylPREDNISolone NA SUCC 40 MG/1 ML VIAL IVPUSH SCH ×2 (00:30→12:25)
[2019-06-22] MEDS: PIPERACILLIN/TAZOB 3.375 GM 3.375 GM in DEXTROSE 5%-WATER - 50 ML IVPB SCH ×3 (02:00→18:57)
[2019-06-22] MEDS ORDERED: PIPERACILLIN/TAZOBACTAM 3.375 GM VIAL IVPB ONE ×3 (05:49→18:42)
[2019-06-22] MEDS ORDERED: DEXTROSE 5%-WATER - 50 ML IVPB ONE ×3 (05:49→18:42)
[2019-06-22] MEDS: clonazePAM 0.5 MG TABLET GT SCH ×3 (05:50→23:47)
[2019-06-22] MEDS: HEPARIN NA (PORCINE) 5,000 UNITS/ML 1ML VIAL SQ SCH ×3 (05:50→23:48)
[2019-06-22] MEDS ORDERED: RAPID SEQUENCE INTUBATION KIT NR ONE (06:00)
[2019-06-22] MEDS: FLUTICASONE PROP 0.05% 16 GM NASAL SPRAY NS SCH (06:19)
[2019-06-22 07:29] LABS: BASO % 0.5 % (0-2.0); HEMATOCRIT 34.7 % (35.4-49); LYMPH % 34.3 % (8-40); MCH 34.1 pg (25.7-33.7); MCHC 34.6 g/dl (32.0-35.9); MEAN CELL VOLUME 98.6 fl (80-96); MEAN PLT VOLUME 8.3 fl (7.5-11.1); MONO % 6.9 % (3.8-10.2); NEUT % 58.3 % (42.8-82.8); PLATELET COUNT 355 K/MM3 (134-434); RBC 3.52 M/mm3 (4.00-5.60); RDW 13.8 % (11.9-15.9); WHITE BLOOD COUNT 9.1 K/mm3 (4.0-10.0)
[2019-06-22] MEDS ORDERED: DOCUSATE NA 100 MG/10 ML UNIT-DOSE CUPS PO PRN (07:41)
[2019-06-22 08:03] LABS: BILIRUBIN,TOTAL 0.6 mg/dL (0.2-1); BLOOD UREA NITROGEN 7.5 mg/dL (7-18); CALCIUM 8.8 mg/dL (8.5-10.1); CREATININE 0.5 mg/dL (0.55-1.3); MAGNESIUM 2.2 mg/dL (1.8-2.4); PHOSPHOROUS 3.2 mg/dL (2.5-4.9); POTASSIUM 3.6 mmol/L (3.5-5.1); TOT PROT 7.7 g/dl (6.4-8.2)
[2019-06-22] MEDS: ALBUTEROL SO4 0.083% IH SOL 2.5 MG/3 ML VIAL.NEB. NEB SCH ×4 (10:00→20:37)
[2019-06-22] MEDS ORDERED: PT OWN MED DRAWER 7, Y5N ONE ×2 (11:28→22:56)
--- NOTE | 2019-06-22 11:30 | PN ---
Progress Note, Physician History of Present Illness: PULMONARY AWAKE,COMFORTABLE ON HIGH FLOW O2,-RESP DISTRESS - Current Medication List Current Medications: Active Medications Acyclovir (Zovirax Oral Suspension -) 400 mg GT BID JORGE Albuterol Sulfate (Ventolin 0.083% Nebulizer Soln -) 1 amp NEB RQID JORGE Last Admin: 06/22/19 10:00 Dose: 1 amp Bacitracin (Bacitracin -) 1 applic TP BID JORGE Baclofen (Lioresal -) 10 mg GT BID JORGE Clobazam (Onfi -) 10 mg GT HS JORGE Clobazam (Onfi -) 5 mg GT DAILY JORGE Clonazepam (Klonopin -) 1.5 mg GT TID JORGE Docusate Sodium (Colace Liquid -) 100 mg PO DAILY PRN PRN Reason: CONSTIPATION Famotidine (Pepcid) 10 mg NGT BID JORGE Fluticasone Propionate (Flonase -) 2 spray NS AM JORGE Heparin Sodium (Porcine) (Heparin -) 5,000 unit SQ TID JORGE Piperacillin Sod/Tazobactam (Sod 3.375 gm/ Dextrose) 50 mls @ 100 mls/hr IVPB Q8H-IV JORGE; Protocol Lactobacillus Acidophilus (Bacid -) 1 tab GT HS JORGE Lamotrigine (Lamictal -) 200 mg GT BID JORGE Magnesium Hydroxide (Milk Of Magnesia -) 20 ml GT BID JORGE Methylprednisolone Sodium Succinate (Solu-Medrol -) 40 mg IVPUSH Q12H JORGE Multivitamins/Minerals (Certavite-Antioxidant Liquid) 15 ml GT HS JORGE Phenobarbital (Phenobarbital Liquid -) 45 mg GT BID JORGE Polyethylene Glycol (Miralax (For Daily Use) -) 17 gm PO DAILY JORGE Sodium Chloride ([place] Nasal [place] -) 2 spray NS BID JORGE - Objective Vital Signs: Vital Signs Temperature 98.1 F 06/22/19 06:00 Pulse Rate 84 06/22/19 09:00 Respiratory Rate 20 06/22/19 06:00 Blood Pressure 110/50 L 06/22/19 06:00 O2 Sat by Pulse Oximetry (%) 92 L 06/22/19 09:00 Constitutional: Yes: Well Nourished, Calm Eyes: Yes: WNL HENT: Yes: WNL Neck: Yes: WNL Cardiovascular: Yes: Regular Rate and Rhythm, S1, S2 Respiratory: Yes: Rhonchi (SCATTERED RHONCHI) Gastrointestinal: Yes: Normal Bowel Sounds, Soft Extremities: Yes: Other (CONTRACTED) Edema: No Labs: CBC, BMP 06/22/19 07:15 06/22/19 07:15 INR, PTT INR 1.13 (0.83-1.09) H 06/11/19 11:10 - ....Imaging X-ray: Report Reviewed, Image Reviewed Problem List - Problems (1) Shortness of breath Code(s): R06.02 - SHORTNESS OF BREATH (2) Aspiration pneumonia Code(s): J69.0 - PNEUMONITIS DUE TO INHALATION OF FOOD AND VOMIT Qualifiers: Aspiration pneumonia type: unspecified Laterality: right Lung location: lower lobe of lung Qualified Code(s): J69.0 - Pneumonitis due to inhalation of food and vomit (3) Dependence on continuous supplemental oxygen Code(s): Z99.81 - DEPENDENCE ON SUPPLEMENTAL OXYGEN (4) PNA (pneumonia) Code(s): J18.9 - PNEUMONIA, UNSPECIFIED ORGANISM (5) Acute hypoxemic respiratory failure Code(s): J96.01 - ACUTE RESPIRATORY FAILURE WITH HYPOXIA (6) Seizure Code(s): R56.9 - UNSPECIFIED CONVULSIONS (7) Aspiration pneumonia Code(s): J69.0 - PNEUMONITIS DUE TO INHALATION OF FOOD AND VOMIT (8) Respiratory failure Code(s): J96.90 - RESPIRATORY FAILURE, UNSP, UNSP W HYPOXIA OR HYPERCAPNIA Qualifiers: Chronicity: acute Respiratory failure complication: hypoxia Qualified Code(s): J96.01 - Acute respiratory failure with hypoxia Assessment/Plan ASSESS: Acute Hypoxic Respiratory Failure improving Pneumonia likely Aspiration IMPROVING Bacteremia Cerebral Palsy Mental Retardation Seizure Disorder GERD Anemia PLAN: - Chest PT - BD TX - Short course of Medrol - High flow O2 - Continue antibiotics - Cont AED's - Strict I's & O's - Trend BUN/Cr - DVT/GI prophylaxis DR VILLALTA
[2019-06-22] MEDS: lamoTRIgine 100 MG TABLET GT SCH ×2 (11:43→23:48)
[2019-06-22] MEDS: cloBAZam 10 MG TABLET GT SCH ×2 (11:44→23:49)
[2019-06-22] MEDS: POLYETHYLENE GLYCOL 3350 119 GM BTL PO SCH (11:44)
[2019-06-22] MEDS: SODIUM CHLORIDE NASAL SPRAY 44 ML BOTTLE NS SCH ×2 (11:44→23:49)
[2019-06-22] MEDS: BACITRACIN 15 GM TUBE TOPICAL OINTMENT TP SCH ×2 (11:45→23:49)
[2019-06-22] MEDS: MAGNESIUM HYDROX 2400MG/30ML ORAL SUSPENSION 30 ML CUP GT SCH ×2 (11:45→23:47)
[2019-06-22] MEDS: PHENobarbital 20 MG/5 ML UNIT-DOSE CUP GT SCH ×2 (11:49→23:52)
[2019-06-22] MEDS: ACYCLOVIR 200 MG/5 ML LIQUID GT SCH ×2 (13:31→23:51)
[2019-06-22] MEDS: FAMOTIDINE 40 MG/5 ML ORAL SUSPENSION NGT SCH ×2 (13:32→23:51)
[2019-06-22] MEDS: BACLOFEN 10 MG TABLET (FP) GT SCH ×2 (13:33→23:50)
--- NOTE | 2019-06-22 14:01 | PN ---
Teaching Attending Note Name of Resident: Nash Kennedy ATTENDING PHYSICIAN STATEMENT I saw and evaluated the patient. I reviewed the resident's note and discussed the case with the resident. I agree with the resident's findings and plan as documented. SUBJECTIVE: Non-verbal, unable to participate in medical interview. OBJECTIVE: Afebrile, Hemodynamically stable. Smiling. On HFOT. SpO2 100% on 70% O2. Last Vital Signs Temp Pulse Resp BP Pulse Ox 98.5 F 70 18 103/53 L 92 L 06/22/19 11:55 06/22/19 11:55 06/22/19 11:55 06/22/19 11:55 06/22/19 09:00 HEENT - Small ulcer on bottom lip. No collection/surrounding erythema. Heart - S1, S2, RRR Lungs - harsh breath sounds, reduced on left. Abdomen - soft, non-tender. PEG in situ. Extremities - wasting, contractures LEs. Laboratory Results - last 24 hr 06/21/19 06/22/19 06/22/19 18:33 07:15 07:15 WBC 9.1 RBC 3.52 L Hgb 12.0 Hct 34.7 L MCV 98.6 H MCH 34.1 H MCHC 34.6 RDW 13.8 Plt Count 355 MPV 8.3 Absolute Neuts (auto) 5.3 Neutrophils % 58.3 Lymphocytes % 34.3 Monocytes % 6.9 Eosinophils % 0.0 D Basophils % 0.5 Nucleated RBC % 0 Sodium 140 Potassium 3.6 Chloride 106 Carbon Dioxide 27 Anion Gap 6 L BUN 7.5 Creatinine 0.5 L Est GFR (CKD-EPI)AfAm 177.03 Est GFR (CKD-EPI)NonAf 152.75 POC Glucometer 114 Random Glucose 101 Calcium 8.8 Phosphorus 3.2 Magnesium 2.2 Total Bilirubin 0.6 AST 13 L ALT 28 Alkaline Phosphatase 143 H Total Protein 7.7 Albumin 3.0 L Current Medications Generic Name Dose Route Start Last Admin Trade Name Freq PRN Reason Stop Dose Admin Acyclovir 400 mg 06/22/19 10:00 06/22/19 13:31 Zovirax Oral Suspension - GT 400 mg BID JORGE Administration Albuterol Sulfate 1 amp 06/22/19 08:00 06/22/19 10:00 Ventolin 0.083% Nebulizer Soln - NEB 1 amp RQID JORGE Administration Bacitracin 1 applic 06/22/19 10:00 06/22/19 11:45 Bacitracin - TP 1 applic BID JORGE Administration Baclofen 10 mg 06/22/19 10:00 06/22/19 13:33 Lioresal - GT 10 mg BID JORGE Administration Clobazam 10 mg 06/22/19 22:00 Onfi - GT HS JORGE Clobazam 5 mg 06/22/19 10:00 06/22/19 11:44 Onfi - GT 5 mg DAILY JORGE Administration Clonazepam 1.5 mg 06/22/19 14:00 06/22/19 13:31 Klonopin - GT 1.5 mg TID JORGE Administration Docusate Sodium 100 mg 06/22/19 07:41 Colace Liquid - PO DAILY PRN CONSTIPATION Famotidine 10 mg 06/22/19 10:00 06/22/19 13:32 Pepcid NGT 10 mg BID JORGE Administration Fluticasone Propionate 2 spray 06/23/19 07:00 Flonase - NS AM JORGE Heparin Sodium (Porcine) 5,000 unit 06/22/19 14:00 06/22/19 13:31 Heparin - SQ 5,000 unit TID JORGE Administration Piperacillin Sod/Tazobactam 50 mls @ 100 mls/hr 06/22/19 10:00 06/22/19 11:43 Sod 3.375 gm/ Dextrose IVPB 100 mls/hr Q8H-IV JORGE Administration Protocol Lactobacillus Acidophilus 1 tab 06/22/19 22:00 Bacid - GT HS JORGE Lamotrigine 200 mg 06/22/19 10:00 06/22/19 11:43 Lamictal - GT 200 mg BID JORGE Administration Magnesium Hydroxide 20 ml 06/22/19 10:00 06/22/19 11:45 Milk Of Magnesia - GT 20 ml BID JOREG Administration Methylprednisolone Sodium Succinate 40 mg 06/22/19 12:30 06/22/19 12:25 Solu-Medrol - IVPUSH 40 mg Q12H JORGE Administration Multivitamins/Minerals 15 ml 06/22/19 22:00 Certavite-Antioxidant Liquid GT HS JORGE Phenobarbital 45 mg 06/22/19 10:00 06/22/19 11:49 Phenobarbital Liquid - GT 45 mg BID JORGE Administration Polyethylene Glycol 17 gm 06/22/19 10:00 06/22/19 11:44 Miralax (For Daily Use) - PO 17 units DAILY JORGE Administration Sodium Chloride 2 spray 06/22/19 10:00 06/22/19 11:44 [place] Nasal [place] - NS 2 sprays BID JORGE Administration Home Medications Medication Instructions Recorded Acyclovir 400 mg GT BID 04/25/17 Baclofen 10 mg GT BID 04/25/17 Clobazam [Onfi -] 10 mg GT HS 04/25/17 Clonazepam 1.5 mg GT TID 04/25/17 Lactobacillus Acidophilus 1 each GT HS 04/25/17 [Acidophilus] Lamotrigine 200 mg GT BID 04/25/17 Multivitamin [Poly-Vitamin] 1 each GT HS 04/25/17 Phenobarbital 48.6 mg GT BID 04/25/17 Ranitidine [Zantac -] 75 mg GT BID #0 tab 03/29/18 Diazepam Rectal Gel [Diastat 7.5 mg ND PRN PRN 05/23/18 Rectal Gel -] Protein Supplement [Promod] 946 ml GT DAILY 05/23/18 Budesonide [Pulmicort 0.25 mg 1 neb IH BID 02/05/19 Nebulizer -] Fluticasone Prop 0.05% Nasal 2 spray NS AM 02/05/19 [Flonase -] Magnesium Hydrox 2400MG/30Ml [Milk 20 ml GT BID 02/05/19 of Magnesia -] Albuterol 2.5/Ipratropium 0.5 1 neb IH QID PRN #30 neb 02/14/19 [Duoneb -] Clobazam [Onfi -] 5 mg GT DAILY #30 tablet MDD 5mg 02/14/19 /24h Bacitracin - [Bacitracin Topical 1 applic TP BID 06/01/19 Ointment -] Sodium Chloride/Aloe Vera [[place] 22 ml NS BID 06/01/19 Saline Nasal Gel [place]] predniSONE [Deltasone -] 10 mg PEG DAILY #2 tablet 06/09/19 predniSONE [Deltasone -] 20 mg PEG DAILY #6 tablet 06/09/19 ASSESSMENT AND PLAN: 24 year old male [place] resident with history of Cerebral Palsy, Developmental Delay, cognitive impairment, functional quadriplegia, seizure disorder, Hx of herpes encephalitis, GERD, Asthma/reactive airway disease, and Hx of aspiration pneumonia, recently discharged from [facility] 06/09 after being treated (with Tamiflu, Zosyn, Steroid) for resp failure sec to Influenza and Pseudomonal Pneumonia requiring Intubation/Ventilation, re-presents from [place] with respiratory failure. CT Chest - bilateral infiltrates 1. Acute Hypoxic Respiratory failure and Sepsis secondary to recurrent/ persistent Aspiration Pneumonia s/p Intubation 06/11/19, Extubation 06/20/19. now on HFOT. CXR - some improvement in opacification L lung - continue deep suctioning Sputum Cx Pseudomonas positive Recently completed course of Tamiflu for Influenza A Urine Legionella neg Blood Cx - 1 bottle pos for gram pos cocci in clusters, likely contaminant. Repeat Blood Cx negative. Leukocytosis resolved. Continue Zosyn. ID following. Short course of Medrol as per Pulm. 2. Seizure disorder - continue anti-seizure regimen (Clonazepam, Lamotrigene, Phenobarbital) 3. Hx of Herpes Encephalitis - maintained on Acyclovir 4. Recent elevation in transaminases ? sepsis related/Abx related - resolved. US Abdo - no acute pathology. DVT PX - Heparin SQ GI Px - Famotidine
--- NOTE | 2019-06-22 20:34 | PN ---
Physical Exam: SUBJECTIVE: Patient seen and examined this AM. Pt continuing to produce multiple secretions on HF 70%, 40L flow rate, nasal trumpet in place OBJECTIVE: Vital Signs Period Temp Pulse Resp BP Sys/Linares Pulse Ox Last 24 Hr 97.0 F-98.5 F 49-95 18-24 96-121/50-69 92-100 GENERAL: The patient is awake and alert, in no acute distress. s/p Extubation and on HFOT 40% flow, 70% FIO2 ENT: ulcer on right lower lip, with minimal amounts of secretions and oral thrush. NECK: supple. LUNGS: Decreased breath sounds on Left side, rhonchi diffuse b/l and crackles. HEART: Regular rate and rhythm, S1, S2 without murmur, rub or gallop. ABDOMEN: PEG tube present, no erythema around site. mild distension, no guarding , no rebound, no masses. EXTREMITIES: Contracted, 2+ pulses, warm, well-perfused, no edema. NEUROLOGICAL: Unable to assess SKIN: Diffuse rash on chest. Laboratory Results - last 24 hr 06/22/19 06/22/19 07:15 07:15 WBC 9.1 RBC 3.52 L Hgb 12.0 Hct 34.7 L MCV 98.6 H MCH 34.1 H MCHC 34.6 RDW 13.8 Plt Count 355 MPV 8.3 Absolute Neuts (auto) 5.3 Neutrophils % 58.3 Lymphocytes % 34.3 Monocytes % 6.9 Eosinophils % 0.0 D Basophils % 0.5 Nucleated RBC % 0 Sodium 140 Potassium 3.6 Chloride 106 Carbon Dioxide 27 Anion Gap 6 L BUN 7.5 Creatinine 0.5 L Est GFR (CKD-EPI)AfAm 177.03 Est GFR (CKD-EPI)NonAf 152.75 Random Glucose 101 Calcium 8.8 Phosphorus 3.2 Magnesium 2.2 Total Bilirubin 0.6 AST 13 L ALT 28 Alkaline Phosphatase 143 H Total Protein 7.7 Albumin 3.0 L Active Medications Generic Name Dose Route Start Last Admin Trade Name Freq PRN Reason Stop Dose Admin Acyclovir 400 mg 06/22/19 10:00 06/22/19 13:31 Zovirax Oral Suspension - GT 400 mg BID JORGE Administration Albuterol Sulfate 1 amp 06/22/19 08:00 06/22/19 15:56 Ventolin 0.083% Nebulizer Soln - NEB 1 amp RQID JORGE Administration Bacitracin 1 applic 06/22/19 10:00 06/22/19 11:45 Bacitracin - TP 1 applic BID JORGE Administration Baclofen 10 mg 06/22/19 10:00 06/22/19 13:33 Lioresal - GT 10 mg BID JORGE Administration Clobazam 10 mg 06/22/19 22:00 Onfi - GT HS JORGE Clobazam 5 mg 06/22/19 10:00 06/22/19 11:44 Onfi - GT 5 mg DAILY JORGE Administration Clonazepam 1.5 mg 06/22/19 14:00 06/22/19 13:31 Klonopin - GT 1.5 mg TID JORGE Administration Docusate Sodium 100 mg 06/22/19 07:41 Colace Liquid - PO DAILY PRN CONSTIPATION Famotidine 10 mg 06/22/19 10:00 06/22/19 13:32 Pepcid NGT 10 mg BID JORGE Administration Fluticasone Propionate 2 spray 06/23/19 07:00 Flonase - NS AM JORGE Heparin Sodium (Porcine) 5,000 unit 06/22/19 14:00 06/22/19 13:31 Heparin - SQ 5,000 unit TID JORGE Administration Piperacillin Sod/Tazobactam 50 mls @ 100 mls/hr 06/22/19 10:00 06/22/19 18:57 Sod 3.375 gm/ Dextrose IVPB 100 mls/hr Q8H-IV JORGE Administration Protocol Lactobacillus Acidophilus 1 tab 06/22/19 22:00 Bacid - GT HS JORGE Lamotrigine 200 mg 06/22/19 10:00 06/22/19 11:43 Lamictal - GT 200 mg BID JOREG Administration Magnesium Hydroxide 20 ml 06/22/19 10:00 06/22/19 11:45 Milk Of Magnesia - GT 20 ml BID JORGE Administration Methylprednisolone Sodium Succinate 40 mg 06/22/19 12:30 06/22/19 12:25 Solu-Medrol - IVPUSH 40 mg Q12H JORGE Administration Multivitamins/Minerals 15 ml 06/22/19 22:00 Certavite-Antioxidant Liquid GT HS JORGE Phenobarbital 45 mg 06/22/19 10:00 06/22/19 11:49 Phenobarbital Liquid - GT 45 mg BID JORGE Administration Polyethylene Glycol 17 gm 06/22/19 10:00 06/22/19 11:44 Miralax (For Daily Use) - PO 17 units DAILY JORGE Administration Sodium Chloride 2 spray 06/22/19 10:00 06/22/19 11:44 [place] Nasal [place] - NS 2 sprays BID JORGE Administration ASSESSMENT/PLAN: 24 y/o M from [place] with hx Cerebral Palsy, Developmental Delay, cognitive impairment, functional quadriplegia, seizure disorder, Hx of herpes encephalitis , GERD, Asthma/reactive airway disease, and Hx of aspiration pneumonia, recently discharged from [facility] 06/09 s/p Pseudomonal PNA and flu treated (with Tamiflu, Zosyn, Steroid) requiring Intubation/Ventilation, now presents with [place] #Acute Hypoxic Respiratory failure with sepsis 2/2 likely aspiration PNA pt extubated today placed on HFO2 ICU team monitoring continue zosyn day 10 keep SaO2 >90% on vent settings ID (Dr Harrison) on case await recs on abx CXR- showing total opacification of L hemithorax compatible w/atelectasis and fluid, with increased rt lung markings. -Chest Physiotherapy -Albuterol treatment prn -Solumedrol 40mg BID, chest PT -F/u CXR in afternoon, if no improvement with treatment then icu team will administer nasal trumpet for mucus plug. #Hypokalemia resolved c/w LR 75 cc/hr #Seizure disorder continue anti-seizure regimen Clonazepam, Lamotrigene, Phenobarbital #Hx of herpes Encephalitis maintained on Acyclovir # transaminases US Abdo - no acute pathology. DVT ppx: Hep TID FEN monitor lytes Jevity LR at 75 Dispo: monitor ICU, extubated likely will require trach if needs intubation again. Visit type - Emergency Visit Emergency Visit: Yes ED Registration Date: 06/11/19 Care time: The patient presented to the Emergency Department on the above date and was hospitalized for further evaluation of their emergent condition. - New Patient This patient is new to me today: No - Critical Care Critical Care patient: No - Discharge Referral Referred to [facility] Med P.C.: No ATTENDING PHYSICIAN STATEMENT I saw and evaluated the patient. I reviewed the resident's note and discussed the case with the resident. I agree with the resident's findings and plan as documented. SUBJECTIVE: OBJECTIVE: ASSESSMENT AND PLAN:
[2019-06-22] MEDS ORDERED: CHLORHEXIDINE GLUCONATE 4% CLEANSER FOR DECOLONIZATION TP SCH (22:00)
[2019-06-22] MEDS: LACTOBACILLUS ACIDOPHILUS 1 TABLET GT SCH (23:48)
[2019-06-23] MEDS: methylPREDNISolone NA SUCC 40 MG/1 ML VIAL IVPUSH SCH ×2 (00:11→11:49)
[2019-06-23] MEDS: MULTIVIT-MINERALS ORAL LIQUID GT SCH ×2 (00:11→21:01)
[2019-06-23] MEDS ORDERED: PIPERACILLIN/TAZOBACTAM 3.375 GM VIAL IVPB ONE ×2 (02:17→10:08)
[2019-06-23] MEDS ORDERED: DEXTROSE 5%-WATER - 50 ML IVPB ONE ×2 (02:17→10:08)
[2019-06-23] MEDS: PIPERACILLIN/TAZOB 3.375 GM 3.375 GM in DEXTROSE 5%-WATER - 50 ML IVPB SCH ×2 (02:51→10:22)
[2019-06-23] MEDS: HEPARIN NA (PORCINE) 5,000 UNITS/ML 1ML VIAL SQ SCH ×3 (07:02→21:02)
[2019-06-23] MEDS: clonazePAM 0.5 MG TABLET GT SCH ×3 (07:02→21:00)
[2019-06-23] MEDS: ALBUTEROL SO4 0.083% IH SOL 2.5 MG/3 ML VIAL.NEB. NEB SCH ×3 (08:00→20:40)
[2019-06-23 08:45] LABS: BASO % 0.3 % (0-2.0); HEMATOCRIT 36.3 % (35.4-49); HEMOGLOBIN 12.3 GM/dL (11.7-16.9); LYMPH % 26.7 % (8-40); MCH 34.3 pg (25.7-33.7); MEAN CELL VOLUME 100.8 fl (80-96); MONO % 9.6 % (3.8-10.2); NEUT % 63.4 % (42.8-82.8); PLATELET COUNT 364 K/MM3 (134-434); RDW 14.3 % (11.9-15.9); WHITE BLOOD COUNT 9.6 K/mm3 (4.0-10.0)
[2019-06-23] MEDS: FLUTICASONE PROP 0.05% 16 GM NASAL SPRAY NS SCH (10:19)
[2019-06-23] MEDS: BACITRACIN 15 GM TUBE TOPICAL OINTMENT TP SCH ×2 (10:19→21:02)
[2019-06-23] MEDS: BACLOFEN 10 MG TABLET (FP) GT SCH ×2 (10:20→21:01)
[2019-06-23] MEDS: lamoTRIgine 100 MG TABLET GT SCH ×2 (10:20→21:00)
[2019-06-23] MEDS: MAGNESIUM HYDROX 2400MG/30ML ORAL SUSPENSION 30 ML CUP GT SCH ×2 (10:20→21:02)
[2019-06-23] MEDS: POLYETHYLENE GLYCOL 3350 119 GM BTL PO SCH (10:21)
[2019-06-23] MEDS: cloBAZam 10 MG TABLET GT SCH ×2 (10:21→21:01)
[2019-06-23] MEDS: PHENobarbital 20 MG/5 ML UNIT-DOSE CUP GT SCH ×2 (10:22→21:03)
[2019-06-23] MEDS: ACYCLOVIR 200 MG/5 ML LIQUID GT SCH ×2 (10:22→21:01)
[2019-06-23] MEDS: FAMOTIDINE 40 MG/5 ML ORAL SUSPENSION NGT SCH ×2 (10:23→21:01)
[2019-06-23 10:51] LABS: ALBUMIN 3.1 g/dl (3.4-5.0); BILIRUBIN,TOTAL 0.2 mg/dL (0.2-1); BLOOD UREA NITROGEN 12.5 mg/dL (7-18); CALCIUM 9.4 mg/dL (8.5-10.1); CREATININE 0.6 mg/dL (0.55-1.3); POTASSIUM 4.1 mmol/L (3.5-5.1); TOT PROT 7.8 g/dl (6.4-8.2)
--- NOTE | 2019-06-23 11:11 | PN ---
Progress Note, Physician History of Present Illness: pulmonary awake ,comfortable on high flow O2 ,O2sat 96% - Current Medication List Current Medications: Active Medications Acyclovir (Zovirax Oral Suspension -) 400 mg GT BID [facility] Last Admin: 06/23/19 10:22 Dose: 400 mg Albuterol Sulfate (Ventolin 0.083% Nebulizer Soln -) 1 amp NEB RQID [facility] Last Admin: 06/23/19 08:00 Dose: 1 amp Bacitracin (Bacitracin -) 1 applic TP BID [facility] Last Admin: 06/23/19 10:19 Dose: 1 applic Baclofen (Lioresal -) 10 mg GT BID [facility] Last Admin: 06/23/19 10:20 Dose: 10 mg Clobazam (Onfi -) 10 mg GT HS [facility] Last Admin: 06/22/19 23:49 Dose: 10 mg Clobazam (Onfi -) 5 mg GT DAILY [facility] Last Admin: 06/23/19 10:21 Dose: 5 mg Clonazepam (Klonopin -) 1.5 mg GT TID [facility] Last Admin: 06/23/19 07:02 Dose: 1.5 mg Docusate Sodium (Colace Liquid -) 100 mg PO DAILY PRN PRN Reason: CONSTIPATION Famotidine (Pepcid) 10 mg NGT BID [facility] Last Admin: 06/23/19 10:23 Dose: 10 mg Fluticasone Propionate (Flonase -) 2 spray NS AM [facility] Last Admin: 06/23/19 10:19 Dose: Not Given Heparin Sodium (Porcine) (Heparin -) 5,000 unit SQ TID [facility] Last Admin: 06/23/19 07:02 Dose: 5,000 unit Piperacillin Sod/Tazobactam (Sod 3.375 gm/ Dextrose) 50 mls @ 100 mls/hr IVPB Q8H-IV JORGE; Protocol Last Admin: 06/23/19 10:22 Dose: 100 mls/hr Lactobacillus Acidophilus (Bacid -) 1 tab GT HS [facility] Last Admin: 06/22/19 23:48 Dose: 1 tab Lamotrigine (Lamictal -) 200 mg GT BID [facility] Last Admin: 06/23/19 10:20 Dose: 200 mg Magnesium Hydroxide (Milk Of Magnesia -) 20 ml GT BID [facility] Last Admin: 06/23/19 10:20 Dose: 20 ml Methylprednisolone Sodium Succinate (Solu-Medrol -) 40 mg IVPUSH Q12H [facility] Last Admin: 06/23/19 00:11 Dose: 40 mg Multivitamins/Minerals (Certavite-Antioxidant Liquid) 15 ml GT HS [facility] Last Admin: 06/23/19 00:11 Dose: 15 ml Phenobarbital (Phenobarbital Liquid -) 45 mg GT BID [facility] Last Admin: 06/23/19 10:22 Dose: 45 mg Polyethylene Glycol (Miralax (For Daily Use) -) 17 gm PO DAILY [facility] Last Admin: 06/23/19 10:21 Dose: 17 units Sodium Chloride ([place] Nasal [place] -) 2 spray NS BID [facility] Last Admin: 06/22/19 23:49 Dose: 2 sprays - Objective Vital Signs: Vital Signs Temperature 98.4 F 06/23/19 06:00 Pulse Rate 64 06/23/19 09:32 Respiratory Rate 20 06/23/19 09:32 Blood Pressure 99/41 L 06/23/19 09:32 O2 Sat by Pulse Oximetry (%) 97 06/23/19 08:27 Constitutional: Yes: Calm, Thin Eyes: Yes: WNL HENT: Yes: WNL Neck: Yes: WNL Cardiovascular: Yes: Regular Rate and Rhythm, S1, S2 Respiratory: Yes: Rhonchi (few rhonchi) Gastrointestinal: Yes: Normal Bowel Sounds, Soft Extremities: Yes: Other (contracted) Edema: No Labs: CBC, BMP 06/23/19 08:05 06/23/19 10:07 INR, PTT INR 1.13 (0.83-1.09) H 06/11/19 11:10 Problem List - Problems (1) Shortness of breath Code(s): R06.02 - SHORTNESS OF BREATH (2) Aspiration pneumonia Code(s): J69.0 - PNEUMONITIS DUE TO INHALATION OF FOOD AND VOMIT Qualifiers: Aspiration pneumonia type: unspecified Laterality: right Lung location: lower lobe of lung Qualified Code(s): J69.0 - Pneumonitis due to inhalation of food and vomit (3) Dependence on continuous supplemental oxygen Code(s): Z99.81 - DEPENDENCE ON SUPPLEMENTAL OXYGEN (4) PNA (pneumonia) Code(s): J18.9 - PNEUMONIA, UNSPECIFIED ORGANISM (5) Acute hypoxemic respiratory failure Code(s): J96.01 - ACUTE RESPIRATORY FAILURE WITH HYPOXIA (6) Seizure Code(s): R56.9 - UNSPECIFIED CONVULSIONS (7) Aspiration pneumonia Code(s): J69.0 - PNEUMONITIS DUE TO INHALATION OF FOOD AND VOMIT (8) Respiratory failure Code(s): J96.90 - RESPIRATORY FAILURE, UNSP, UNSP W HYPOXIA OR HYPERCAPNIA Qualifiers: Chronicity: acute Respiratory failure complication: hypoxia Qualified Code(s): J96.01 - Acute respiratory failure with hypoxia Assessment/Plan ASSESS: Acute Hypoxic Respiratory Failure improving Pneumonia likely Aspiration IMPROVING Bacteremia Cerebral Palsy Mental Retardation Seizure Disorder GERD Anemia PLAN: - Chest PT - BD TX - Medrol taper - Taper High flow O2 - antibiotics as per ID - Strict I's & O's - DVT/GI prophylaxis DR VILLALTA
[2019-06-23] MEDS: SODIUM CHLORIDE NASAL SPRAY 44 ML BOTTLE NS SCH ×2 (13:36→21:03)
--- NOTE | 2019-06-23 14:13 | PN ---
Teaching Attending Note Name of Resident: Nash Kennedy ATTENDING PHYSICIAN STATEMENT I saw and evaluated the patient. I reviewed the resident's note and discussed the case with the resident. I agree with the resident's findings and plan as documented. SUBJECTIVE: Non-verbal, unable to participate in medical interview. OBJECTIVE: Afebrile, Hemodynamically stable. Smiling. On HFOT. SpO2 98% on 40% HFO2. Last Vital Signs Temp Pulse Resp BP Pulse Ox 98.4 F 71 20 111/50 L 98 06/23/19 12:20 06/23/19 12:20 06/23/19 12:20 06/23/19 12:20 06/23/19 09:00 HEENT - Small ulcer on L bottom lip. No collection/surrounding erythema. Heart - S1, S2, RRR Lungs - harsh breath sounds, reduced on left. Abdomen - soft, non-tender. PEG in situ. PEG site clean. Extremities - wasting, contractures LEs. Laboratory Results - last 24 hr 06/23/19 06/23/19 08:05 10:07 WBC 9.6 RBC 3.60 L Hgb 12.3 Hct 36.3 MCV 100.8 H MCH 34.3 H MCHC 34.0 RDW 14.3 Plt Count 364 MPV 9.0 Absolute Neuts (auto) 6.1 Neutrophils % 63.4 Lymphocytes % 26.7 D Monocytes % 9.6 Eosinophils % 0.0 Basophils % 0.3 Nucleated RBC % 0 Sodium 139 Potassium 4.1 Chloride 106 Carbon Dioxide 27 Anion Gap 6 L BUN 12.5 Creatinine 0.6 Est GFR (CKD-EPI)AfAm 164.25 Est GFR (CKD-EPI)NonAf 141.72 Random Glucose 107 H Calcium 9.4 Total Bilirubin 0.2 AST 13 L ALT 26 Alkaline Phosphatase 137 H Total Protein 7.8 Albumin 3.1 L Current Medications Generic Name Dose Route Start Last Admin Trade Name Freq PRN Reason Stop Dose Admin Acyclovir 400 mg 06/22/19 10:06/23/19 10:22 Zovirax Oral Suspension - GT 400 mg BID JORGE Administration Albuterol Sulfate 1 amp 06/22/19 08:00 06/23/19 08:00 Ventolin 0.083% Nebulizer Soln - NEB 1 amp RQID [facility] Administration Bacitracin 1 applic 06/22/19 10:00 06/23/19 10:19 Bacitracin - TP 1 applic BID [facility] Administration Baclofen 10 mg 06/22/19 10:00 06/23/19 10:20 Lioresal - GT 10 mg BID [facility] Administration Clobazam 10 mg 06/22/19 22:00 06/22/19 23:49 Onfi - GT 10 mg HS JORGE Administration Clobazam 5 mg 06/22/19 10:00 06/23/19 10:21 Onfi - GT 5 mg DAILY [facility] Administration Clonazepam 1.5 mg 06/22/19 14:00 06/23/19 13:36 Klonopin - GT 1.5 mg TID [facility]OR[facility] Administration Docusate Sodium 100 mg 06/22/19 07:41 Colace Liquid - PO DAILY PRN CONSTIPATION Famotidine 10 mg 06/22/19 10:00 06/23/19 10:23 Pepcid NGT 10 mg BID [facility] Administration Fluticasone Propionate 2 spray 06/23/19 07:00 06/23/19 10:19 Flonase - NS Not Given AM [facility] Heparin Sodium (Porcine) 5,000 unit 06/22/19 14:00 06/23/19 13:37 Heparin - SQ 5,000 unit TID [facility] Administration Piperacillin Sod/Tazobactam 50 mls @ 100 mls/hr 06/22/19 10:00 06/23/19 10:22 Sod 3.375 gm/ Dextrose IVPB 100 mls/hr Q8H-IV [facility] Administration Protocol Lactobacillus Acidophilus 1 tab 06/22/19 22:00 06/22/19 23:48 Bacid - GT 1 tab HS [facility] Administration Lamotrigine 200 mg 06/22/19 10:00 06/23/19 10:20 Lamictal - GT 200 mg BID [facility] Administration Magnesium Hydroxide 20 ml 06/22/19 10:00 06/23/19 10:20 Milk Of Magnesia - GT 20 ml BID [facility] Administration Methylprednisolone Sodium Succinate 40 mg 06/22/19 12:30 06/23/19 11:49 Solu-Medrol - IVPUSH 40 mg Q12H [facility] Administration Multivitamins/Minerals 15 ml 06/22/19 22:00 06/23/19 00:11 Certavite-Antioxidant Liquid GT 15 ml HS [facility] Administration Phenobarbital 45 mg 06/22/19 10:00 06/23/19 10:22 Phenobarbital Liquid - GT 45 mg BID [facility] Administration Polyethylene Glycol 17 gm 06/22/19 10:00 06/23/19 10:21 Miralax (For Daily Use) - PO 17 units DAILY [facility] Administration Sodium Chloride 2 spray 06/22/19 10:00 06/23/19 13:36 [place] Nasal [place] - NS 2 sprays BID [facility]OR[facility] Administration Home Medications Medication Instructions Recorded Acyclovir 400 mg GT BID 04/25/17 Baclofen 10 mg GT BID 04/25/17 Clobazam [Onfi -] 10 mg GT HS 04/25/17 Clonazepam 1.5 mg GT TID 04/25/17 Lactobacillus Acidophilus 1 each GT HS 04/25/17 [Acidophilus] Lamotrigine 200 mg GT BID 04/25/17 Multivitamin [Poly-Vitamin] 1 each GT HS 04/25/17 Phenobarbital 48.6 mg GT BID 04/25/17 Ranitidine [Zantac -] 75 mg GT BID #0 tab 03/29/18 Diazepam Rectal Gel [Diastat 7.5 mg NC PRN PRN 05/23/18 Rectal Gel -] Protein Supplement [Promod] 946 ml GT DAILY 05/23/18 Budesonide [Pulmicort 0.25 mg 1 neb IH BID 02/05/19 Nebulizer -] Fluticasone Prop 0.05% Nasal 2 spray NS AM 02/05/19 [Flonase -] Magnesium Hydrox 2400MG/30Ml [Milk 20 ml GT BID 02/05/19 of Magnesia -] Albuterol 2.5/Ipratropium 0.5 1 neb IH QID PRN #30 neb 02/14/19 [Duoneb -] Clobazam [Onfi -] 5 mg GT DAILY #30 tablet MDD 5mg 02/14/19 /24h Bacitracin - [Bacitracin Topical 1 applic TP BID 06/01/19 Ointment -] Sodium Chloride/Aloe Vera [[place] 22 ml NS BID 06/01/19 Saline Nasal Gel Raymond] predniSONE [Deltasone -] 10 mg PEG DAILY #2 tablet 06/09/19 predniSONE [Deltasone -] 20 mg PEG DAILY #6 tablet 06/09/19 ASSESSMENT AND PLAN: 24 year old male [place] resident with history of Cerebral Palsy, Developmental Delay, cognitive impairment, functional quadriplegia, seizure disorder, Hx of herpes encephalitis, GERD, Asthma/reactive airway disease, and Hx of aspiration pneumonia, recently discharged from [facility] 06/09 after being treated (with Tamiflu, Zosyn, Steroid) for resp failure sec to Influenza and Pseudomonal Pneumonia requiring Intubation/Ventilation, re-presents from [place] with respiratory failure. CT Chest - bilateral infiltrates 1. Acute Hypoxic Respiratory failure and Sepsis secondary to recurrent/ persistent Aspiration Pneumonia s/p Intubation 06/11/19, Extubation 06/20/19. now on HFOT. CXR - some improvement in opacification L lung - continue deep suctioning Sputum Cx Pseudomonas positive Recently completed course of Tamiflu for Influenza A Urine Legionella neg Blood Cx - 1 bottle pos for gram pos cocci in clusters, likely contaminant. Repeat Blood Cx negative. Leukocytosis resolved. Continue Zosyn. Wean down/off HFOT ID following. Short course of Medrol as per Pulm. 2. Seizure disorder - continue anti-seizure regimen (Clonazepam, Lamotrigene, Phenobarbital) 3. Hx of Herpes Encephalitis - maintained on Acyclovir 4. Recent elevation in transaminases ? sepsis related/Abx related - resolved. US Abdo - no acute pathology. 5. Macrocytosis ?sec to anti-seizure meds. Will send B12/folate levels to exclude deficiency. DVT PX - Heparin SQ GI Px - Famotidine
--- NOTE | 2019-06-23 16:43 | PN ---
Physical Exam: SUBJECTIVE: Patient seen and examined at bedside. On HFO2, respiratory therapist at bedside with me trying to titrate it as tolerated. OBJECTIVE: Vital Signs Period Temp Pulse Resp BP Sys/Linares Pulse Ox Last 24 Hr 97.0 F-98.6 F 59-72 14-20 96-121/41-66 95-98 GENERAL: The patient is awake and alert, in no acute distress. s/p Extubation and on HFOT 40% flow, 70% FIO2 ENT: ulcer on right lower lip, with minimal amounts of secretions and oral thrush. NECK: supple. LUNGS: Decreased breath sounds on Left side, less secretions today, no rhonchi or wheezing appreciated. HEART: Regular rate and rhythm, S1, S2 without murmur, rub or gallop. ABDOMEN: PEG tube present, no erythema around site. mild distension, no guarding , no rebound, no masses. EXTREMITIES: Contracted, 2+ pulses, warm, well-perfused, no edema. NEUROLOGICAL: Unable to assess SKIN: Diffuse rash on chest. Laboratory Results - last 24 hr 06/23/19 06/23/19 08:05 10:07 WBC 9.6 RBC 3.60 L Hgb 12.3 Hct 36.3 MCV 100.8 H MCH 34.3 H MCHC 34.0 RDW 14.3 Plt Count 364 MPV 9.0 Absolute Neuts (auto) 6.1 Neutrophils % 63.4 Lymphocytes % 26.7 D Monocytes % 9.6 Eosinophils % 0.0 Basophils % 0.3 Nucleated RBC % 0 Sodium 139 Potassium 4.1 Chloride 106 Carbon Dioxide 27 Anion Gap 6 L BUN 12.5 Creatinine 0.6 Est GFR (CKD-EPI)AfAm 164.25 Est GFR (CKD-EPI)NonAf 141.72 Random Glucose 107 H Calcium 9.4 Total Bilirubin 0.2 AST 13 L ALT 26 Alkaline Phosphatase 137 H Total Protein 7.8 Albumin 3.1 L Active Medications Generic Name Dose Route Start Last Admin Trade Name Freq PRN Reason Stop Dose Admin Acyclovir 400 mg 06/22/19 10:00 06/23/19 10:22 Zovirax Oral Suspension - GT 400 mg BID JORGE Administration Albuterol Sulfate 1 amp 06/22/19 08:00 06/23/19 12:00 Ventolin 0.083% Nebulizer Soln - NEB 1 amp RQID JORGE Administration Amoxicillin/Clavulanate Potassium 600 mg 06/23/19 17:30 Augmentin 600 Mg/5 Ml Oral Suspension - GT BID@0800,1730 [facility] Bacitracin 1 applic 06/22/19 10:00 06/23/19 10:19 Bacitracin - TP 1 applic BID JORGE Administration Baclofen 10 mg 06/22/19 10:00 06/23/19 10:20 Lioresal - GT 10 mg BID [facility] Administration Clobazam 10 mg 06/22/19 22:00 06/22/19 23:49 Onfi - GT 10 mg HS JORGE Administration Clobazam 5 mg 06/22/19 10:00 06/23/19 10:21 Onfi - GT 5 mg DAILY JORGE Administration Clonazepam 1.5 mg 06/22/19 14:00 06/23/19 13:36 Klonopin - GT 1.5 mg TID JORGE Administration Docusate Sodium 100 mg 06/22/19 07:41 Colace Liquid - PO DAILY PRN CONSTIPATION Famotidine 10 mg 06/22/19 10:00 06/23/19 10:23 Pepcid NGT 10 mg BID [facility] Administration Fluticasone Propionate 2 spray 06/23/19 07:00 06/23/19 10:19 Flonase - NS Not Given AM [facility] Heparin Sodium (Porcine) 5,000 unit 06/22/19 14:00 06/23/19 13:37 Heparin - SQ 5,000 unit TID JORGE Administration Lactobacillus Acidophilus 1 tab 06/22/19 22:00 06/22/19 23:48 Bacid - GT 1 tab HS JORGE Administration Lamotrigine 200 mg 06/22/19 10:00 06/23/19 10:20 Lamictal - GT 200 mg BID JORGE Administration Magnesium Hydroxide 20 ml 06/22/19 10:00 06/23/19 10:20 Milk Of Magnesia - GT 20 ml BID [facility] Administration Methylprednisolone Sodium Succinate 40 mg 06/22/19 12:30 06/23/19 11:49 Solu-Medrol - IVPUSH 40 mg Q12H [facility] Administration Multivitamins/Minerals 15 ml 06/22/19 22:00 06/23/19 00:11 Certavite-Antioxidant Liquid GT 15 ml HS JORGE Administration Phenobarbital 45 mg 06/22/19 10:00 06/23/19 10:22 Phenobarbital Liquid - GT 45 mg BID [facility] Administration Polyethylene Glycol 17 gm 06/22/19 10:00 06/23/19 10:21 Miralax (For Daily Use) - PO 17 units DAILY [facility] Administration Sodium Chloride 2 spray 06/22/19 10:00 06/23/19 13:36 [place] Nasal [place] - NS 2 sprays BID JORGE Administration ASSESSMENT/PLAN: 24 y/o M from [place] with hx Cerebral Palsy, Developmental Delay, cognitive impairment, functional quadriplegia, seizure disorder, Hx of herpes encephalitis , GERD, Asthma/reactive airway disease, and Hx of aspiration pneumonia, recently discharged from [facility] 06/09 s/p Pseudomonal PNA and flu treated (with Tamiflu, Zosyn, Steroid) requiring Intubation/Ventilation, now presents with [place]. #Acute Hypoxic Respiratory failure with sepsis 2/2 likely aspiration PNA s/p extubation day 2 on HFO2, weaning as tolerated s/w ID and confirmed we will discontinue zosyn, started on PO augmentin 600 BID X 3 days. keep SaO2 >90% on vent settings ID (Dr Harrison) on case await recs on abx CXR- improved compared to previous -Chest Physiotherapy -Albuterol treatment prn -Solumedrol 40mg BID, chest PT -Pt has improved on CXR after nasal trumpet, satting fine on HFO2 will wean as tolerated. #Hypokalemia resolved c/w LR 75 cc/hr #Seizure disorder continue anti-seizure regimen Clonazepam, Lamotrigene, Phenobarbital #Hx of herpes Encephalitis maintained on Acyclovir # transaminases US Abdo - no acute pathology. DVT ppx: Hep TID FEN monitor lytes Jevity LR at 75 Dispo: monitor on floors, on high flow. Visit type - Emergency Visit Emergency Visit: Yes ED Registration Date: 06/11/19 Care time: The patient presented to the Emergency Department on the above date and was hospitalized for further evaluation of their emergent condition. - New Patient This patient is new to me today: No - Critical Care Critical Care patient: No - Discharge Referral Referred to [facility] Med P.C.: No ATTENDING PHYSICIAN STATEMENT I saw and evaluated the patient. I reviewed the resident's note and discussed the case with the resident. I agree with the resident's findings and plan as documented. SUBJECTIVE: OBJECTIVE: ASSESSMENT AND PLAN:
[2019-06-23] MEDS: AMOX TR/POTASSIUM CLAVULANATE 600 MG/5 ML GT SCH (17:29)
[2019-06-23] MEDS: LACTOBACILLUS ACIDOPHILUS 1 TABLET GT SCH (21:01)
--- NOTE | 2019-06-23 21:44 | PN ---
Progress Note, Physician History of Present Illness: NO ACUTE DISTRESS ON HIGH FLOW O2 AFEBRILE - Current Medication List Current Medications: Active Medications Acyclovir (Zovirax Oral Suspension -) 400 mg GT BID [facility] Last Admin: 06/23/19 21:01 Dose: 400 mg Albuterol Sulfate (Ventolin 0.083% Nebulizer Soln -) 1 amp NEB RQID [facility] Last Admin: 06/23/19 12:00 Dose: 1 amp Amoxicillin/Clavulanate Potassium (Augmentin 600 Mg/5 Ml Oral Suspension -) 600 mg GT BID@0800,1730 [facility] Last Admin: 06/23/19 17:29 Dose: 5 ml Bacitracin (Bacitracin -) 1 applic TP BID [facility] Last Admin: 06/23/19 21:02 Dose: 1 applic Baclofen (Lioresal -) 10 mg GT BID [facility] Last Admin: 06/23/19 21:01 Dose: 10 mg Clobazam (Onfi -) 10 mg GT HS [facility] Last Admin: 06/23/19 21:01 Dose: 10 mg Clobazam (Onfi -) 5 mg GT DAILY [facility] Last Admin: 06/23/19 10:21 Dose: 5 mg Clonazepam (Klonopin -) 1.5 mg GT TID [facility] Last Admin: 06/23/19 21:00 Dose: 1.5 mg Docusate Sodium (Colace Liquid -) 100 mg PO DAILY PRN PRN Reason: CONSTIPATION Famotidine (Pepcid) 10 mg NGT BID [facility] Last Admin: 06/23/19 21:01 Dose: 10 mg Fluticasone Propionate (Flonase -) 2 spray NS AM [facility] Last Admin: 06/23/19 10:19 Dose: Not Given Heparin Sodium (Porcine) (Heparin -) 5,000 unit SQ TID [facility] Last Admin: 06/23/19 21:02 Dose: 5,000 unit Lactobacillus Acidophilus (Bacid -) 1 tab GT HS [facility] Last Admin: 06/23/19 21:01 Dose: 1 tab Lamotrigine (Lamictal -) 200 mg GT BID [facility] Last Admin: 06/23/19 21:00 Dose: 200 mg Magnesium Hydroxide (Milk Of Magnesia -) 20 ml GT BID [facility] Last Admin: 06/23/19 21:02 Dose: 20 ml Methylprednisolone Sodium Succinate (Solu-Medrol -) 40 mg IVPUSH Q12H [facility] Last Admin: 06/23/19 11:49 Dose: 40 mg Multivitamins/Minerals (Certavite-Antioxidant Liquid) 15 ml GT HS [facility] Last Admin: 06/23/19 21:01 Dose: 15 ml Phenobarbital (Phenobarbital Liquid -) 45 mg GT BID [facility] Last Admin: 06/23/19 21:03 Dose: 45 mg Polyethylene Glycol (Miralax (For Daily Use) -) 17 gm PO DAILY [facility] Last Admin: 06/23/19 10:21 Dose: 17 units Sodium Chloride ([place] Nasal [place] -) 2 spray NS BID [facility] Last Admin: 06/23/19 21:03 Dose: 2 sprays - Objective Vital Signs: Vital Signs Temperature 99.2 F 06/23/19 18:00 Pulse Rate 82 06/23/19 18:00 Respiratory Rate 17 06/23/19 18:00 Blood Pressure 100/55 L 06/23/19 18:00 O2 Sat by Pulse Oximetry (%) 98 06/23/19 09:00 Constitutional: Yes: No Distress Cardiovascular: Yes: Regular Rate and Rhythm, S1, S2 Respiratory: Yes: Diminished Gastrointestinal: Yes: Normal Bowel Sounds, Soft Labs: CBC, BMP 06/23/19 08:05 06/23/19 10:07 INR, PTT INR 1.13 (0.83-1.09) H 06/11/19 11:10 Assessment/Plan S/P RESP FAILURE PROBABLE RECURRENT ASPIRATION FEVER/ LEUKOCYTOSIS IMPROVED S/P RECENT INFLUENZA SUBSTITUTE AUGMENTIN VIA GT X 3D
[2019-06-23] MEDS ORDERED: PT OWN MED DRAWER 7, Y5N ONE (22:23)
[2019-06-23] MEDS ORDERED: ACETAMINOPHEN 1000 MG/100 ML VIAL (NON FORMULARY) IVPB ONE (23:16)
[2019-06-24] MEDS: methylPREDNISolone NA SUCC 40 MG/1 ML VIAL IVPUSH SCH ×3 (00:34→23:42)
[2019-06-24] MEDS: clonazePAM 0.5 MG TABLET GT SCH ×3 (06:21→22:23)
[2019-06-24] MEDS: HEPARIN NA (PORCINE) 5,000 UNITS/ML 1ML VIAL SQ SCH ×3 (06:21→22:22)
[2019-06-24] MEDS: FLUTICASONE PROP 0.05% 16 GM NASAL SPRAY NS SCH (06:22)
[2019-06-24] MEDS: ALBUTEROL SO4 0.083% IH SOL 2.5 MG/3 ML VIAL.NEB. NEB SCH ×4 (08:00→21:01)
[2019-06-24 08:12] LABS: BASO % 0.3 % (0-2.0); HEMATOCRIT 35.7 % (35.4-49); HEMOGLOBIN 12.1 GM/dL (11.7-16.9); LYMPH % 18.6 % (8-40); MCH 33.9 pg (25.7-33.7); MCHC 33.8 g/dl (32.0-35.9); MEAN CELL VOLUME 100.4 fl (80-96); MEAN PLT VOLUME 8.9 fl (7.5-11.1); MONO % 3.5 % (3.8-10.2); NEUT % 77.6 % (42.8-82.8); PLATELET COUNT 335 K/MM3 (134-434); RBC 3.56 M/mm3 (4.00-5.60); WHITE BLOOD COUNT 8.2 K/mm3 (4.0-10.0)
[2019-06-24] MEDS: AMOX TR/POTASSIUM CLAVULANATE 600 MG/5 ML GT SCH ×2 (08:50→17:14)
[2019-06-24 08:51] LABS: ALBUMIN 3.2 g/dl (3.4-5.0); BILIRUBIN,TOTAL 0.3 mg/dL (0.2-1); CALCIUM 9.2 mg/dL (8.5-10.1); CREATININE 0.6 mg/dL (0.55-1.3); POTASSIUM 4.4 mmol/L (3.5-5.1); TOT PROT 8.2 g/dl (6.4-8.2)
[2019-06-24] MEDS: MAGNESIUM HYDROX 2400MG/30ML ORAL SUSPENSION 30 ML CUP GT SCH ×2 (10:04→22:21)
[2019-06-24] MEDS: cloBAZam 10 MG TABLET GT SCH ×2 (10:05→22:27)
[2019-06-24] MEDS: BACLOFEN 10 MG TABLET (FP) GT SCH ×2 (10:05→23:18)
[2019-06-24] MEDS: lamoTRIgine 100 MG TABLET GT SCH ×2 (10:06→22:25)
[2019-06-24] MEDS: FAMOTIDINE 40 MG/5 ML ORAL SUSPENSION NGT SCH ×2 (10:08→23:18)
[2019-06-24] MEDS: ACYCLOVIR 200 MG/5 ML LIQUID GT SCH ×2 (10:08→23:17)
[2019-06-24] MEDS: POLYETHYLENE GLYCOL 3350 119 GM BTL PO SCH (10:09)
[2019-06-24] MEDS: SODIUM CHLORIDE NASAL SPRAY 44 ML BOTTLE NS SCH ×2 (10:12→22:42)
[2019-06-24] MEDS: BACITRACIN 15 GM TUBE TOPICAL OINTMENT TP SCH ×2 (10:13→22:42)
--- NOTE | 2019-06-24 11:35 | PN ---
Progress Note, Physician History of Present Illness: pulmonary awake,alert,no distress - Current Medication List Current Medications: Active Medications Acyclovir (Zovirax Oral Suspension -) 400 mg GT BID [facility] Last Admin: 06/24/19 10:08 Dose: 400 mg Albuterol Sulfate (Ventolin 0.083% Nebulizer Soln -) 1 amp NEB RQID [facility] Last Admin: 06/24/19 08:00 Dose: 1 amp Amoxicillin/Clavulanate Potassium (Augmentin 600 Mg/5 Ml Oral Suspension -) 600 mg GT BID@0800,1730 [facility] Last Admin: 06/24/19 08:50 Dose: 600 ml Bacitracin (Bacitracin -) 1 applic TP BID [facility] Last Admin: 06/24/19 10:13 Dose: 1 applic Baclofen (Lioresal -) 10 mg GT BID [facility] Last Admin: 06/24/19 10:05 Dose: 10 mg Clobazam (Onfi -) 10 mg GT HS [facility] Last Admin: 06/23/19 21:01 Dose: 10 mg Clobazam (Onfi -) 5 mg GT DAILY [facility] Last Admin: 06/24/19 10:05 Dose: 5 mg Clonazepam (Klonopin -) 1.5 mg GT TID [facility] Last Admin: 06/24/19 06:21 Dose: 1.5 mg Docusate Sodium (Colace Liquid -) 100 mg PO DAILY PRN PRN Reason: CONSTIPATION Famotidine (Pepcid) 10 mg NGT BID [facility] Last Admin: 06/24/19 10:08 Dose: 10 mg Fluticasone Propionate (Flonase -) 2 spray NS AM [facility] Last Admin: 06/24/19 06:22 Dose: 2 sprays Heparin Sodium (Porcine) (Heparin -) 5,000 unit SQ TID [facility] Last Admin: 06/24/19 06:21 Dose: 5,000 unit Lactobacillus Acidophilus (Bacid -) 1 tab GT HS [facility] Last Admin: 06/23/19 21:01 Dose: 1 tab Lamotrigine (Lamictal -) 200 mg GT BID [facility] Last Admin: 06/24/19 10:06 Dose: 200 mg Magnesium Hydroxide (Milk Of Magnesia -) 20 ml GT BID [facility] Last Admin: 06/24/19 10:04 Dose: 20 ml Methylprednisolone Sodium Succinate (Solu-Medrol -) 40 mg IVPUSH Q12H [facility] Last Admin: 06/24/19 00:34 Dose: 40 mg Multivitamins/Minerals (Certavite-Antioxidant Liquid) 15 ml GT HS [facility] Last Admin: 06/23/19 21:01 Dose: 15 ml Phenobarbital (Phenobarbital Liquid -) 45 mg GT BID [facility] Last Admin: 06/23/19 21:03 Dose: 45 mg Polyethylene Glycol (Miralax (For Daily Use) -) 17 gm PO DAILY [facility] Last Admin: 06/24/19 10:09 Dose: Not Given Sodium Chloride ([place] Nasal [place] -) 2 spray NS BID [facility] Last Admin: 06/24/19 10:12 Dose: 2 sprays - Objective Vital Signs: Vital Signs Temperature 97.9 F 06/24/19 10:00 Pulse Rate 68 06/24/19 10:00 Respiratory Rate 18 06/24/19 10:00 Blood Pressure 112/72 06/24/19 10:00 O2 Sat by Pulse Oximetry (%) 99 06/23/19 21:00 Constitutional: Yes: Calm, Thin Eyes: Yes: WNL HENT: Yes: WNL Neck: Yes: WNL Cardiovascular: Yes: Regular Rate and Rhythm, S1, S2 Respiratory: Yes: Rhonchi (few rhonchi) Gastrointestinal: Yes: Normal Bowel Sounds, Soft Extremities: Yes: Other (contracted) Edema: No Labs: CBC, BMP 06/24/19 06:10 06/24/19 06:10 INR, PTT INR 1.13 (0.83-1.09) H 06/11/19 11:10 Problem List - Problems (1) Shortness of breath Code(s): R06.02 - SHORTNESS OF BREATH (2) Aspiration pneumonia Code(s): J69.0 - PNEUMONITIS DUE TO INHALATION OF FOOD AND VOMIT Qualifiers: Aspiration pneumonia type: unspecified Laterality: right Lung location: lower lobe of lung Qualified Code(s): J69.0 - Pneumonitis due to inhalation of food and vomit (3) Dependence on continuous supplemental oxygen Code(s): Z99.81 - DEPENDENCE ON SUPPLEMENTAL OXYGEN (4) PNA (pneumonia) Code(s): J18.9 - PNEUMONIA, UNSPECIFIED ORGANISM (5) Acute hypoxemic respiratory failure Code(s): J96.01 - ACUTE RESPIRATORY FAILURE WITH HYPOXIA (6) Seizure Code(s): R56.9 - UNSPECIFIED CONVULSIONS (7) Aspiration pneumonia Code(s): J69.0 - PNEUMONITIS DUE TO INHALATION OF FOOD AND VOMIT (8) Respiratory failure Code(s): J96.90 - RESPIRATORY FAILURE, UNSP, UNSP W HYPOXIA OR HYPERCAPNIA Qualifiers: Chronicity: acute Respiratory failure complication: hypoxia Qualified Code(s): J96.01 - Acute respiratory failure with hypoxia Assessment/Plan ASSESS: Acute Hypoxic Respiratory Failure improving Pneumonia likely Aspiration IMPROVING Bacteremia Cerebral Palsy Mental Retardation Seizure Disorder GERD Anemia PLAN: - Chest PT - BD TX - Medrol taper - O2 via vm as tolerated - antibiotics as per ID - Strict I's & O's - DVT/GI prophylaxis DR VILLALTA
[2019-06-24] MEDS: PHENobarbital 20 MG/5 ML UNIT-DOSE CUP GT SCH ×2 (12:02→22:27)
[2019-06-24 13:25] VITALS: BMI 24.5
--- NOTE | 2019-06-24 13:50 | PN ---
Teaching Attending Note Name of Resident: Nash Kennedy ATTENDING PHYSICIAN STATEMENT I saw and evaluated the patient. I reviewed the resident's note and discussed the case with the resident. I agree with the resident's findings and plan as documented. SUBJECTIVE: Non-verbal, unable to participate in medical interview. OBJECTIVE: Febrile overnight Tmax 100.8, Hemodynamically stable. Smiling. Transitioned from HFOT to Ventimask 98% Last Vital Signs Temp Pulse Resp BP Pulse Ox 97.9 F 72 18 112/72 98 06/24/19 10:00 06/24/19 12:18 06/24/19 10:06/24/19 10:00 06/24/19 12:18 HEENT - Small ulcer on L bottom lip. No collection/surrounding erythema. Heart - S1, S2, RRR Lungs - harsh breath sounds, reduced on left. Abdomen - soft, non-tender. PEG in situ. PEG site clean. Extremities - wasting, contractures LEs. Laboratory Results - last 24 hr 06/23/19 06/24/19 06/24/19 10:07 06:10 06:10 WBC 8.2 RBC 3.56 L Hgb 12.1 Hct 35.7 MCV 100.4 H MCH 33.9 H MCHC 33.8 RDW 14.0 Plt Count 335 MPV 8.9 Absolute Neuts (auto) 6.4 Neutrophils % 77.6 D Lymphocytes % 18.6 D Monocytes % 3.5 L Eosinophils % 0.0 Basophils % 0.3 Nucleated RBC % 0 Sodium 139 138 Potassium 4.1 4.4 Chloride 106 104 Carbon Dioxide 27 28 Anion Gap 6 L 6 L BUN 12.5 13.0 Creatinine 0.6 0.6 Est GFR (CKD-EPI)AfAm 164.25 164.25 Est GFR (CKD-EPI)NonAf 141.72 141.72 Random Glucose 107 H 145 H Calcium 9.4 9.2 Total Bilirubin 0.2 0.3 AST 13 L 9 L ALT 26 27 Alkaline Phosphatase 137 H 139 H Total Protein 7.8 8.2 Albumin 3.1 L 3.2 L Vitamin B12 1688 H Serum Folate 17 Current Medications Generic Name Dose Route Start Last Admin Trade Name Freq PRN Reason Stop Dose Admin Acyclovir 400 mg 06/22/19 10:00 06/24/19 10:08 Zovirax Oral Suspension - GT 400 mg BID JORGE Administration Albuterol Sulfate 1 amp 02/12/20 08:00 06/24/19 11:56 Ventolin 0.083% Nebulizer Soln - NEB 1 amp RQID JORGE Administration Amoxicillin/Clavulanate Potassium 600 mg 06/23/19 17:30 06/24/19 08:50 Augmentin 600 Mg/5 Ml Oral Suspension - GT 600 ml BID@0800,1730 JORGE Administration Bacitracin 1 applic 06/22/19 10:00 06/24/19 10:13 Bacitracin - TP 1 applic BID JORGE Administration Baclofen 10 mg 06/22/19 10:00 06/24/19 10:05 Lioresal - GT 10 mg BID JORGE Administration Clobazam 10 mg 06/22/19 22:00 06/23/19 21:01 Onfi - GT 10 mg HS JORGE Administration Clobazam 5 mg 06/22/19 10:00 06/24/19 10:05 Onfi - GT 5 mg DAILY JORGE Administration Clonazepam 1.5 mg 06/22/19 14:00 06/24/19 06:21 Klonopin - GT 1.5 mg TID JORGE Administration Docusate Sodium 100 mg 06/22/19 07:41 Colace Liquid - PO DAILY PRN CONSTIPATION Famotidine 10 mg 06/22/19 10:00 06/24/19 10:08 Pepcid NGT 10 mg BID JORGE Administration Fluticasone Propionate 2 spray 06/23/19 07:00 06/24/19 06:22 Flonase - NS 2 sprays AM JORGE Administration Heparin Sodium (Porcine) 5,000 unit 06/22/19 14:00 06/24/19 06:21 Heparin - SQ 5,000 unit TID JORGE Administration Lactobacillus Acidophilus 1 tab 06/22/19 22:00 06/23/19 21:01 Bacid - GT 1 tab HS JORGE Administration Lamotrigine 200 mg 06/22/19 10:00 06/24/19 10:06 Lamictal - GT 200 mg BID JORGE Administration Magnesium Hydroxide 20 ml 06/22/19 10:00 06/24/19 10:04 Milk Of Magnesia - GT 20 ml BID JORGE Administration Methylprednisolone Sodium Succinate 40 mg 06/22/19 12:30 06/24/19 12:02 Solu-Medrol - IVPUSH 40 mg Q12H JORGE Administration Multivitamins/Minerals 15 ml 06/22/19 22:00 06/23/19 21:01 Certavite-Antioxidant Liquid GT 15 ml HS JORGE Administration Phenobarbital 45 mg 06/22/19 10:00 06/24/19 12:02 Phenobarbital Liquid - GT 45 mg BID JORGE Administration Polyethylene Glycol 17 gm 06/22/19 10:00 06/24/19 10:09 Miralax (For Daily Use) - PO Not Given DAILY JORGE Sodium Chloride 2 spray 06/22/19 10:00 06/24/19 10:12 [place] Nasal [place] - NS 2 sprays BID JORGE Administration Home Medications Medication Instructions Recorded Acyclovir 400 mg GT BID 04/25/17 Baclofen 10 mg GT BID 04/25/17 Clobazam [Onfi -] 10 mg GT HS 04/25/17 Clonazepam 1.5 mg GT TID 04/25/17 Lactobacillus Acidophilus 1 each GT HS 04/25/17 [Acidophilus] Lamotrigine 200 mg GT BID 04/25/17 Multivitamin [Poly-Vitamin] 1 each GT HS 04/25/17 Phenobarbital 48.6 mg GT BID 04/25/17 Ranitidine [Zantac -] 75 mg GT BID #0 tab 03/29/18 Diazepam Rectal Gel [Diastat 7.5 mg [place] PRN PRN 05/23/18 Rectal Gel -] Protein Supplement [Promod] 946 ml GT DAILY 05/23/18 Budesonide [Pulmicort 0.25 mg 1 neb IH BID 02/05/19 Nebulizer -] Fluticasone Prop 0.05% Nasal 2 spray NS AM 02/05/19 [Flonase -] Magnesium Hydrox 2400MG/30Ml [Milk 20 ml GT BID 02/05/19 of Magnesia -] Albuterol 2.5/Ipratropium 0.5 1 neb IH QID PRN #30 neb 02/14/19 [Duoneb -] Clobazam [Onfi -] 5 mg GT DAILY #30 tablet MDD 5mg 02/14/19 /24h Bacitracin - [Bacitracin Topical 1 applic TP BID 06/01/19 Ointment -] Sodium Chloride/Aloe Vera [[place] 22 ml NS BID 06/01/19 Saline Nasal Gel [place]] predniSONE [Deltasone -] 10 mg PEG DAILY #2 tablet 06/09/19 predniSONE [Deltasone -] 20 mg PEG DAILY #6 tablet 06/09/19 ASSESSMENT AND PLAN: 24 year old male [place] resident with history of Cerebral Palsy, Developmental Delay, cognitive impairment, functional quadriplegia, seizure disorder, Hx of herpes encephalitis, GERD, Asthma/reactive airway disease, and Hx of aspiration pneumonia, recently discharged from [facility] 06/09 after being treated (with Tamiflu, Zosyn, Steroid) for resp failure sec to Influenza and Pseudomonal Pneumonia requiring Intubation/Ventilation, re-presents from [place] with respiratory failure. CT Chest - bilateral infiltrates 1. Acute Hypoxic Respiratory failure and Sepsis secondary to recurrent/ persistent Aspiration Pneumonia s/p Intubation 06/11/19, Extubation 06/20/19. Weaned off HFOT to Ventimask. CXR - some improvement in opacification L lung. Sputum Cx Pseudomonas positive Recently completed course of Tamiflu for Influenza A Urine Legionella neg Blood Cx - 1 bottle pos for gram pos cocci in clusters, likely contaminant. Repeat Blood Cx negative. Leukocytosis resolved. Zosyn transitioned to oral Augmentin as per ID. Short course of Medrol as per Pulm. 2. Seizure disorder - continue anti-seizure regimen (Clonazepam, Lamotrigene, Phenobarbital) 3. Hx of Herpes Encephalitis - maintained on Acyclovir 4. Recent elevation in transaminases ? sepsis related/Abx related - resolved. US Abdo - no acute pathology. 5. Macrocytosis ?sec to anti-seizure meds. B12/folate levels non-deficient. DVT PX - Heparin SQ GI Px - Famotidine
--- NOTE | 2019-06-24 13:52 | PN ---
Physical Exam: SUBJECTIVE: Patient seen and examined. Febrile overnight Tmax 100.8, Hemodynamically stable. Smiling. Transitioned from HFOT to Ventimask 98%. Pt OBJECTIVE: Vital Signs Period Temp Pulse Resp BP Sys/[place] Pulse Ox Last 24 Hr 97.9 F-100.8 F 54-86 14-18 96-122/52-72 98-99 GENERAL: The patient is awake and alert, in no acute distress. weaned off HFOT transitioned to ventimask. ENT: ulcer on right lower lip, with minimal amounts of secretions and oral thrush. NECK: supple. LUNGS: Decreased breath sounds on Left side, less secretions today, no rhonchi or wheezing appreciated. HEART: Regular rate and rhythm, S1, S2 without murmur, rub or gallop. ABDOMEN: PEG tube present, no erythema around site. mild distension, no guarding , no rebound, no masses. EXTREMITIES: Contracted, 2+ pulses, warm, well-perfused, no edema. NEUROLOGICAL: Unable to assess SKIN: Diffuse rash on chest. Laboratory Results - last 24 hr 06/23/19 06/24/19 06/24/19 10:07 06:10 06:10 WBC 8.2 RBC 3.56 L Hgb 12.1 Hct 35.7 MCV 100.4 H MCH 33.9 H MCHC 33.8 RDW 14.0 Plt Count 335 MPV 8.9 Absolute Neuts (auto) 6.4 Neutrophils % 77.6 D Lymphocytes % 18.6 D Monocytes % 3.5 L Eosinophils % 0.0 Basophils % 0.3 Nucleated RBC % 0 Sodium 139 138 Potassium 4.1 4.4 Chloride 106 104 Carbon Dioxide 27 28 Anion Gap 6 L 6 L BUN 12.5 13.0 Creatinine 0.6 0.6 Est GFR (CKD-EPI)AfAm 164.25 164.25 Est GFR (CKD-EPI)NonAf 141.72 141.72 Random Glucose 107 H 145 H Calcium 9.4 9.2 Total Bilirubin 0.2 0.3 AST 13 L 9 L ALT 26 27 Alkaline Phosphatase 137 H 139 H Total Protein 7.8 8.2 Albumin 3.1 L 3.2 L Vitamin B12 1688 H Serum Folate 17 Active Medications Generic Name Dose Route Start Last Admin Trade Name Freq PRN Reason Stop Dose Admin Acyclovir 400 mg 06/22/19 10:00 06/24/19 10:08 Zovirax Oral Suspension - GT 400 mg BID JORGE Administration Albuterol Sulfate 1 amp 06/22/19 08:00 06/24/19 11:56 Ventolin 0.083% Nebulizer Soln - NEB 1 amp RQID JORGE Administration Amoxicillin/Clavulanate Potassium 600 mg 06/23/19 17:30 06/24/19 08:50 Augmentin 600 Mg/5 Ml Oral Suspension - GT 600 ml BID@0800,1730 JORGE Administration Bacitracin 1 applic 06/22/19 10:00 06/24/19 10:13 Bacitracin - TP 1 applic BID JORGE Administration Baclofen 10 mg 06/22/19 10:00 06/24/19 10:05 Lioresal - GT 10 mg BID JORGE Administration Clobazam 10 mg 06/22/19 22:00 06/23/19 21:01 Onfi - GT 10 mg HS JORGE Administration Clobazam 5 mg 06/22/19 10:00 06/24/19 10:05 Onfi - GT 5 mg DAILY JORGE Administration Clonazepam 1.5 mg 06/22/19 14:00 06/24/19 06:21 Klonopin - GT 1.5 mg TID JORGE Administration Docusate Sodium 100 mg 06/22/19 07:41 Colace Liquid - PO DAILY PRN CONSTIPATION Famotidine 10 mg 06/22/19 10:00 06/24/19 10:08 Pepcid NGT 10 mg BID JORGE Administration Fluticasone Propionate 2 spray 06/23/19 07:00 06/24/19 06:22 Flonase - NS 2 sprays AM JORGE Administration Heparin Sodium (Porcine) 5,000 unit 06/22/19 14:00 06/24/19 06:21 Heparin - SQ 5,000 unit TID JORGE Administration Lactobacillus Acidophilus 1 tab 06/22/19 22:00 06/23/19 21:01 Bacid - GT 1 tab HS JORGE Administration Lamotrigine 200 mg 06/22/19 10:00 06/24/19 10:06 Lamictal - GT 200 mg BID JORGE Administration Magnesium Hydroxide 20 ml 06/22/19 10:00 06/24/19 10:04 Milk Of Magnesia - GT 20 ml BID JORGE Administration Methylprednisolone Sodium Succinate 40 mg 06/22/19 12:30 06/24/19 12:02 Solu-Medrol - IVPUSH 40 mg Q12H JORGE Administration Multivitamins/Minerals 15 ml 06/22/19 22:00 06/23/19 21:01 Certavite-Antioxidant Liquid GT 15 ml HS JORGE Administration Phenobarbital 45 mg 06/22/19 10:00 06/24/19 12:02 Phenobarbital Liquid - GT 45 mg BID JORGE Administration Polyethylene Glycol 17 gm 06/22/19 10:00 06/24/19 10:09 Miralax (For Daily Use) - PO Not Given DAILY JORGE Sodium Chloride 2 spray 06/22/19 10:00 06/24/19 10:12 [place] Nasal [place] - NS 2 sprays BID JORGE Administration ASSESSMENT/PLAN: 24 y/o M from [place] with hx Cerebral Palsy, Developmental Delay, cognitive impairment, functional quadriplegia, seizure disorder, Hx of herpes encephalitis , GERD, Asthma/reactive airway disease, and Hx of aspiration pneumonia, recently discharged from [facility] 06/09 s/p Pseudomonal PNA and flu treated (with Tamiflu, Zosyn, Steroid) requiring Intubation/Ventilation, now presents with [place]. #Acute Hypoxic Respiratory failure with sepsis 2/2 likely aspiration PNA s/p extubation day 3 on ventimax, weaning as tolerated c/w PO augmentin 600 BID (day 2) X 3 days. keep SaO2 >90% on vent settings ID (Dr Harrison) on case await recs on abx CXR- improved compared to previous on left side better aeration. -Chest Physiotherapy -Albuterol treatment prn -Solumedrol 40mg BID can begin to taper it, c/w chest PT per pulm. -Pt has improved on CXR after nasal trumpet, satting fine on ventimask. #Seizure disorder continue anti-seizure regimen Clonazepam, Lamotrigene, Phenobarbital #Hx of herpes Encephalitis maintained on Acyclovir # transaminases US Abdo - no acute pathology. #Macrocytosis - ?sec to anti-seizure meds. B12/folate levels non-deficient DVT ppx: Hep TID FEN monitor lytes Jevity tube feeds off fluids Dispo: monitor on floors, on ventimask. Visit type - Emergency Visit Emergency Visit: Yes ED Registration Date: 06/11/19 Care time: The patient presented to the Emergency Department on the above date and was hospitalized for further evaluation of their emergent condition. - New Patient This patient is new to me today: No - Critical Care Critical Care patient: No - Discharge Referral Referred to [facility] Med P.C.: No ATTENDING PHYSICIAN STATEMENT I saw and evaluated the patient. I reviewed the resident's note and discussed the case with the resident. I agree with the resident's findings and plan as documented. SUBJECTIVE: OBJECTIVE: ASSESSMENT AND PLAN:
[2019-06-24] MEDS ORDERED: PT OWN MED DRAWER 7, Y5N ONE (22:18)
[2019-06-24] MEDS: LACTOBACILLUS ACIDOPHILUS 1 TABLET GT SCH (22:25)
[2019-06-24] MEDS: MULTIVIT-MINERALS ORAL LIQUID GT SCH (23:18)
[2019-06-25] MEDS: HEPARIN NA (PORCINE) 5,000 UNITS/ML 1ML VIAL SQ SCH ×3 (05:44→22:46)
[2019-06-25] MEDS: clonazePAM 0.5 MG TABLET GT SCH ×3 (05:44→22:37)
[2019-06-25] MEDS: FLUTICASONE PROP 0.05% 16 GM NASAL SPRAY NS SCH (06:00)
[2019-06-25 07:12] LABS: BASO % 0.3 % (0-2.0); HEMATOCRIT 35.7 % (35.4-49); HEMOGLOBIN 12.5 GM/dL (11.7-16.9); LYMPH % 30.5 % (8-40); MCH 34.7 pg (25.7-33.7); MEAN CELL VOLUME 99.2 fl (80-96); MONO % 7.3 % (3.8-10.2); NEUT % 61.9 % (42.8-82.8); PLATELET COUNT 328 K/MM3 (134-434); WHITE BLOOD COUNT 7.7 K/mm3 (4.0-10.0)
[2019-06-25 07:31] LABS: ALBUMIN 3.4 g/dl (3.4-5.0); BILIRUBIN,TOTAL 0.2 mg/dL (0.2-1); BLOOD UREA NITROGEN 11.5 mg/dL (7-18); CALCIUM 9.5 mg/dL (8.5-10.1); CREATININE 0.6 mg/dL (0.55-1.3); POTASSIUM 4.2 mmol/L (3.5-5.1)
[2019-06-25] MEDS: ALBUTEROL SO4 0.083% IH SOL 2.5 MG/3 ML VIAL.NEB. NEB SCH ×4 (08:11→20:25)
[2019-06-25] MEDS ORDERED: PT OWN MED DRAWER 7, Y5N ONE ×2 (10:38→22:30)
[2019-06-25] MEDS: cloBAZam 10 MG TABLET GT SCH ×2 (10:41→22:37)
[2019-06-25] MEDS: lamoTRIgine 100 MG TABLET GT SCH ×2 (10:41→22:37)
[2019-06-25] MEDS: PHENobarbital 20 MG/5 ML UNIT-DOSE CUP GT SCH ×2 (10:41→22:37)
[2019-06-25] MEDS: MAGNESIUM HYDROX 2400MG/30ML ORAL SUSPENSION 30 ML CUP GT SCH ×2 (10:41→22:36)
[2019-06-25] MEDS: AMOX TR/POTASSIUM CLAVULANATE 600 MG/5 ML GT SCH ×2 (10:42→17:14)
[2019-06-25] MEDS: BACITRACIN 15 GM TUBE TOPICAL OINTMENT TP SCH ×2 (10:42→22:38)
[2019-06-25] MEDS: ACYCLOVIR 200 MG/5 ML LIQUID GT SCH ×2 (10:43→22:36)
[2019-06-25] MEDS: FAMOTIDINE 40 MG/5 ML ORAL SUSPENSION NGT SCH ×2 (10:43→22:37)
[2019-06-25] MEDS: BACLOFEN 10 MG TABLET (FP) GT SCH ×2 (10:44→22:38)
[2019-06-25] MEDS: POLYETHYLENE GLYCOL 3350 119 GM BTL PO SCH (10:45)
[2019-06-25] MEDS: SODIUM CHLORIDE NASAL SPRAY 44 ML BOTTLE NS SCH ×2 (10:46→22:38)
--- NOTE | 2019-06-25 12:15 | PN ---
Progress Note (short form) - Note Progress Note: NAD on 31% VM O2. Has not required HFOT. No acute events overnight. Intake & Output 06/22/19 06/23/19 06/24/19 06/25/19 23:59 23:59 23:59 23:59 Intake Total 974 721 7885 574 Output Total 850 800 800 Balance -552 -552 1006 574 Weight 91 lb 12.8 oz Last Vital Signs Temp Pulse Resp BP Pulse Ox 98.5 F 54 L 18 112/50 L 97 06/25/19 10:38 06/25/19 10:38 06/25/19 10:38 06/25/19 10:38 06/24/19 21:00 Active Medications Acyclovir (Zovirax Oral Suspension -) 400 mg GT BID [facility] Last Admin: 06/25/19 10:43 Dose: 400 mg Albuterol Sulfate (Ventolin 0.083% Nebulizer Soln -) 1 amp NEB RQID [facility] Last Admin: 06/25/19 11:29 Dose: 1 amp Amoxicillin/Clavulanate Potassium (Augmentin 600 Mg/5 Ml Oral Suspension -) 600 mg GT BID@0800,1730 [facility] Last Admin: 06/25/19 10:42 Dose: 5 ml Bacitracin (Bacitracin -) 1 applic TP BID [facility] Last Admin: 06/25/19 10:42 Dose: 1 applic Baclofen (Lioresal -) 10 mg GT BID [facility] Last Admin: 06/25/19 10:44 Dose: 10 mg Clobazam (Onfi -) 10 mg GT HS [facility] Last Admin: 06/24/19 22:27 Dose: 10 mg Clobazam (Onfi -) 5 mg GT DAILY [facility] Last Admin: 06/25/19 10:41 Dose: 5 mg Clonazepam (Klonopin -) 1.5 mg GT TID [facility] Last Admin: 06/25/19 05:44 Dose: 1.5 mg Docusate Sodium (Colace Liquid -) 100 mg PO DAILY PRN PRN Reason: CONSTIPATION Famotidine (Pepcid) 10 mg NGT BID [facility] Last Admin: 06/25/19 10:43 Dose: 10 mg Fluticasone Propionate (Flonase -) 2 spray NS AM [facility] Last Admin: 06/25/19 06:00 Dose: 2 sprays Heparin Sodium (Porcine) (Heparin -) 5,000 unit SQ TID [facility] Last Admin: 06/25/19 05:44 Dose: 5,000 unit Lactobacillus Acidophilus (Bacid -) 1 tab GT HS [facility] Last Admin: 06/24/19 22:25 Dose: 1 tab Lamotrigine (Lamictal -) 200 mg GT BID [facility] Last Admin: 06/25/19 10:41 Dose: 200 mg Magnesium Hydroxide (Milk Of Magnesia -) 20 ml GT BID [facility] Last Admin: 06/25/19 10:41 Dose: 20 ml Methylprednisolone Sodium Succinate (Solu-Medrol -) 40 mg IVPUSH Q12H [facility] Last Admin: 06/24/19 23:42 Dose: 40 mg Multivitamins/Minerals (Certavite-Antioxidant Liquid) 15 ml GT HS [facility] Last Admin: 06/24/19 23:18 Dose: 15 ml Phenobarbital (Phenobarbital Liquid -) 45 mg GT BID [facility] Last Admin: 06/25/19 10:41 Dose: 45 mg Polyethylene Glycol (Miralax (For Daily Use) -) 17 gm PO DAILY [facility] Last Admin: 06/25/19 10:45 Dose: 17 grams Sodium Chloride ([place] Nasal [place] -) 2 spray NS BID [facility] Last Admin: 06/25/19 10:46 Dose: 2 sprays Constitutional: Yes: NAD Eyes: Yes: WNL HENT: Yes: WNL Neck: Yes: WNL Cardiovascular: Yes: Regular Rate and Rhythm, S1, S2 Respiratory: Yes: Few scattered rhonchi Gastrointestinal: Yes: Normal Bowel Sounds, Soft Extremities: Yes: Other (contracted) Edema: No Labs: Laboratory Results - last 24 hr 06/25/19 06/25/19 06:22 06:22 WBC 7.7 RBC 3.60 L Hgb 12.5 Hct 35.7 MCV 99.2 H MCH 34.7 H MCHC 35.0 RDW 14.0 Plt Count 328 MPV 9.0 Absolute Neuts (auto) 4.7 Neutrophils % 61.9 D Lymphocytes % 30.5 D Monocytes % 7.3 D Eosinophils % 0.0 Basophils % 0.3 Nucleated RBC % 0 Sodium 137 Potassium 4.2 Chloride 102 Carbon Dioxide 29 Anion Gap 5 L BUN 11.5 Creatinine 0.6 Est GFR (CKD-EPI)AfAm 164.25 Est GFR (CKD-EPI)NonAf 141.72 Random Glucose 141 H Calcium 9.5 Total Bilirubin 0.2 AST 14 L ALT 30 Alkaline Phosphatase 133 H Total Protein 8.0 Albumin 3.4 Problem List - Problems (1) Shortness of breath Code(s): R06.02 - SHORTNESS OF BREATH (2) Aspiration pneumonia Code(s): J69.0 - PNEUMONITIS DUE TO INHALATION OF FOOD AND VOMIT Qualifiers: Aspiration pneumonia type: unspecified Laterality: right Lung location: lower lobe of lung Qualified Code(s): J69.0 - Pneumonitis due to inhalation of food and vomit (3) Dependence on continuous supplemental oxygen Code(s): Z99.81 - DEPENDENCE ON SUPPLEMENTAL OXYGEN (4) PNA (pneumonia) Code(s): J18.9 - PNEUMONIA, UNSPECIFIED ORGANISM (5) Acute hypoxemic respiratory failure Code(s): J96.01 - ACUTE RESPIRATORY FAILURE WITH HYPOXIA (6) Seizure Code(s): R56.9 - UNSPECIFIED CONVULSIONS (7) Aspiration pneumonia Code(s): J69.0 - PNEUMONITIS DUE TO INHALATION OF FOOD AND VOMIT (8) Respiratory failure Code(s): J96.90 - RESPIRATORY FAILURE, UNSP, UNSP W HYPOXIA OR HYPERCAPNIA Qualifiers: Chronicity: acute Respiratory failure complication: hypoxia Qualified Code(s): J96.01 - Acute respiratory failure with hypoxia Assessment/Plan Acute Hypoxic Respiratory Failure improving Pneumonia likely Aspiration IMPROVING Bacteremia Cerebral Palsy Mental Retardation Seizure Disorder GERD Anemia PLAN: - Chest PT - BD TX - DC HFOT - Wean FiO2 as tolerated - Augmentin - Prednsone - DC planning Dr Price
[2019-06-25] MEDS: methylPREDNISolone NA SUCC 40 MG/1 ML VIAL IVPUSH SCH (12:20)
[2019-06-25] MEDS: predniSONE 10 MG TABLET (UD) PO SCH (12:40)
--- NOTE | 2019-06-25 12:50 | PN ---
Teaching Attending Note Name of Resident: Nash Kennedy ATTENDING PHYSICIAN STATEMENT I saw and evaluated the patient. I reviewed the resident's note and discussed the case with the resident. I agree with the resident's findings and plan as documented. SUBJECTIVE: Non-verbal, unable to participate in medical interview. OBJECTIVE: Tmax 99.9, Hemodynamically stable. Smiling. 99% on Ventimask 40%. Last Vital Signs Temp Pulse Resp BP Pulse Ox 98.5 F 54 L 18 112/50 L 97 06/25/19 10:38 06/25/19 10:38 06/25/19 10:38 06/25/19 10:38 06/24/19 21:00 HEENT - Small ulcer on L bottom lip. No collection/surrounding erythema. Heart - S1, S2, RRR Lungs - harsh breath sounds, reduced on left. Abdomen - soft, non-tender. PEG in situ. PEG site clean. Extremities - wasting, contractures LEs. Laboratory Results - last 24 hr 06/25/19 06/25/19 06:22 06:22 WBC 7.7 RBC 3.60 L Hgb 12.5 Hct 35.7 MCV 99.2 H MCH 34.7 H MCHC 35.0 RDW 14.0 Plt Count 328 MPV 9.0 Absolute Neuts (auto) 4.7 Neutrophils % 61.9 D Lymphocytes % 30.5 D Monocytes % 7.3 D Eosinophils % 0.0 Basophils % 0.3 Nucleated RBC % 0 Sodium 137 Potassium 4.2 Chloride 102 Carbon Dioxide 29 Anion Gap 5 L BUN 11.5 Creatinine 0.6 Est GFR (CKD-EPI)AfAm 164.25 Est GFR (CKD-EPI)NonAf 141.72 Random Glucose 141 H Calcium 9.5 Total Bilirubin 0.2 AST 14 L ALT 30 Alkaline Phosphatase 133 H Total Protein 8.0 Albumin 3.4 Current Medications Generic Name Dose Route Start Last Admin Trade Name Freq PRN Reason Stop Dose Admin Acyclovir 400 mg 06/22/19 10:00 06/25/19 10:43 Zovirax Oral Suspension - GT 400 mg BID JORGE Administration Albuterol Sulfate 1 amp 06/22/19 08:00 06/25/19 11:29 Ventolin 0.083% Nebulizer Soln - NEB 1 amp RQID JORGE Administration Amoxicillin/Clavulanate Potassium 600 mg 06/23/19 17:30 06/25/19 10:42 Augmentin 600 Mg/5 Ml Oral Suspension - GT 5 ml BID@0800,1730 JORGE Administration Bacitracin 1 applic 06/22/19 10:00 06/25/19 10:42 Bacitracin - TP 1 applic BID JORGE Administration Baclofen 10 mg 06/22/19 10:00 06/25/19 10:44 Lioresal - GT 10 mg BID JORGE Administration Clobazam 10 mg 06/22/19 22:00 06/24/19 22:27 Onfi - GT 10 mg HS JORGE Administration Clobazam 5 mg 06/22/19 10:00 06/25/19 10:41 Onfi - GT 5 mg DAILY JORGE Administration Clonazepam 1.5 mg 06/22/19 14:00 06/25/19 05:44 Klonopin - GT 1.5 mg TID JORGE Administration Docusate Sodium 100 mg 06/22/19 07:41 Colace Liquid - PO DAILY PRN CONSTIPATION Famotidine 10 mg 06/22/19 10:00 06/25/19 10:43 Pepcid NGT 10 mg BID JORGE Administration Fluticasone Propionate 2 spray 06/23/19 07:00 06/25/19 06:00 Flonase - NS 2 sprays AM JORGE Administration Heparin Sodium (Porcine) 5,000 unit 06/22/19 14:00 06/25/19 05:44 Heparin - SQ 5,000 unit TID JORGE Administration Lactobacillus Acidophilus 1 tab 06/22/19 22:00 06/24/19 22:25 Bacid - GT 1 tab HS JORGE Administration Lamotrigine 200 mg 06/22/19 10:00 06/25/19 10:41 Lamictal - GT 200 mg BID JORGE Administration Magnesium Hydroxide 20 ml 06/22/19 10:00 06/25/19 10:41 Milk Of Magnesia - GT 20 ml BID JORGE Administration Multivitamins/Minerals 15 ml 06/22/19 22:00 06/24/19 23:18 Certavite-Antioxidant Liquid GT 15 ml HS JORGE Administration Phenobarbital 45 mg 06/22/19 10:00 06/25/19 10:41 Phenobarbital Liquid - GT 45 mg BID JORGE Administration Polyethylene Glycol 17 gm 06/22/19 10:00 06/25/19 10:45 Miralax (For Daily Use) - PO 17 grams DAILY JORGE Administration Prednisone 30 mg 06/25/19 12:30 06/25/19 12:40 Deltasone - PO Not Given DAILY JORGE Sodium Chloride 2 spray 06/22/19 10:00 06/25/19 10:46 [place] Nasal [place] - NS 2 sprays BID JORGE Administration Home Medications Medication Instructions Recorded Acyclovir 400 mg GT BID 04/25/17 Baclofen 10 mg GT BID 04/25/17 Clobazam [Onfi -] 10 mg GT HS 04/25/17 Clonazepam 1.5 mg GT TID 04/25/17 Lactobacillus Acidophilus 1 each GT HS 04/25/17 [Acidophilus] Lamotrigine 200 mg GT BID 04/25/17 Multivitamin [Poly-Vitamin] 1 each GT HS 04/25/17 Phenobarbital 48.6 mg GT BID 04/25/17 Ranitidine [Zantac -] 75 mg GT BID #0 tab 03/29/18 Diazepam Rectal Gel [Diastat 7.5 mg [place] PRN PRN 05/23/18 Rectal Gel -] Protein Supplement [Promod] 946 ml GT DAILY 05/23/18 Budesonide [Pulmicort 0.25 mg 1 neb IH BID 02/05/19 Nebulizer -] Fluticasone Prop 0.05% Nasal 2 spray NS AM 02/05/19 [Flonase -] Magnesium Hydrox 2400MG/30Ml [Milk 20 ml GT BID 02/05/19 of Magnesia -] Albuterol 2.5/Ipratropium 0.5 1 neb IH QID PRN #30 neb 02/14/19 [Duoneb -] Clobazam [Onfi -] 5 mg GT DAILY #30 tablet MDD 5mg 02/14/19 /24h Bacitracin - [Bacitracin Topical 1 applic TP BID 06/01/19 Ointment -] Sodium Chloride/Aloe Vera [[place] 22 ml NS BID 06/01/19 Saline Nasal Gel [place]] predniSONE [Deltasone -] 10 mg PEG DAILY #2 tablet 06/09/19 predniSONE [Deltasone -] 20 mg PEG DAILY #6 tablet 06/09/19 ASSESSMENT AND PLAN: 24 year old male [place] resident with history of Cerebral Palsy, Developmental Delay, cognitive impairment, functional quadriplegia, seizure disorder, Hx of herpes encephalitis, GERD, Asthma/reactive airway disease, and Hx of aspiration pneumonia, recently discharged from [facility] 06/09 after being treated (with Tamiflu, Zosyn, Steroid) for resp failure sec to Influenza and Pseudomonal Pneumonia requiring Intubation/Ventilation, re-presents from [place] with respiratory failure. CT Chest - bilateral infiltrates 1. Acute Hypoxic Respiratory failure and Sepsis secondary to recurrent/ persistent Aspiration Pneumonia s/p Intubation 06/11/19, Extubation 06/20/19. Weaned off HFOT to Ventimask, now 40% . CXR - some improvement in opacification L lung. Sputum Cx Pseudomonas positive Recently completed course of Tamiflu for Influenza A Urine Legionella neg Blood Cx - 1 bottle pos for gram pos cocci in clusters, likely contaminant. Repeat Blood Cx negative. Leukocytosis resolved. Zosyn transitioned to oral Augmentin as per ID. Short course of Medrol as per Pulm. Continue to wean down FiO2 and transition to NC. 2. Seizure disorder - continue anti-seizure regimen (Clonazepam, Lamotrigene, Phenobarbital) 3. Hx of Herpes Encephalitis - maintained on Acyclovir 4. Recent elevation in transaminases ? sepsis related/Abx related - resolved. US Abdo - no acute pathology. 5. Macrocytosis ?sec to anti-seizure meds. B12/folate levels non-deficient. DVT PX - Heparin SQ GI Px - Famotidine
--- NOTE | 2019-06-25 15:19 | PN ---
Physical Exam: SUBJECTIVE: Patient seen and examined at bedside. On ventimask 40% titrating down to 30%, notified nurse to downtitrate to NC. OBJECTIVE: Vital Signs Period Temp Pulse Resp BP Sys/Linares Pulse Ox Last 24 Hr 98.0 F-99.1 F 54-94 18-20 102-123/50-67 97-97 GENERAL: The patient is awake and alert, in no acute distress. weaned off HFOT transitioned to ventimask. ENT: ulcer on right lower lip, with minimal amounts of secretions and oral thrush. NECK: supple. LUNGS: Decreased breath sounds on Left side, less secretions today, no rhonchi or wheezing appreciated. HEART: Regular rate and rhythm, S1, S2 without murmur, rub or gallop. ABDOMEN: PEG tube present, no erythema around site. mild distension, no guarding , no rebound, no masses. EXTREMITIES: Contracted, 2+ pulses, warm, well-perfused, no edema. NEUROLOGICAL: Unable to assess SKIN: Diffuse rash on chest. Laboratory Results - last 24 hr 06/25/19 06/25/19 06:22 06:22 WBC 7.7 RBC 3.60 L Hgb 12.5 Hct 35.7 MCV 99.2 H MCH 34.7 H MCHC 35.0 RDW 14.0 Plt Count 328 MPV 9.0 Absolute Neuts (auto) 4.7 Neutrophils % 61.9 D Lymphocytes % 30.5 D Monocytes % 7.3 D Eosinophils % 0.0 Basophils % 0.3 Nucleated RBC % 0 Sodium 137 Potassium 4.2 Chloride 102 Carbon Dioxide 29 Anion Gap 5 L BUN 11.5 Creatinine 0.6 Est GFR (CKD-EPI)AfAm 164.25 Est GFR (CKD-EPI)NonAf 141.72 Random Glucose 141 H Calcium 9.5 Total Bilirubin 0.2 AST 14 L ALT 30 Alkaline Phosphatase 133 H Total Protein 8.0 Albumin 3.4 Active Medications Generic Name Dose Route Start Last Admin Trade Name Freq PRN Reason Stop Dose Admin Acyclovir 400 mg 06/22/19 10:00 06/25/19 10:43 Zovirax Oral Suspension - GT 400 mg BID JORGE Administration Albuterol Sulfate 1 amp 06/22/19 08:00 06/25/19 11:29 Ventolin 0.083% Nebulizer Soln - NEB 1 amp RQID JORGE Administration Amoxicillin/Clavulanate Potassium 600 mg 06/23/19 17:30 06/25/19 10:42 Augmentin 600 Mg/5 Ml Oral Suspension - GT 5 ml BID@0800,1730 JORGE Administration Bacitracin 1 applic 06/22/19 10:00 06/25/19 10:42 Bacitracin - TP 1 applic BID JORGE Administration Baclofen 10 mg 06/22/19 10:00 06/25/19 10:44 Lioresal - GT 10 mg BID JORGE Administration Clobazam 10 mg 06/22/19 22:00 06/24/19 22:27 Onfi - GT 10 mg HS JORGE Administration Clobazam 5 mg 06/22/19 10:00 06/25/19 10:41 Onfi - GT 5 mg DAILY JORGE Administration Clonazepam 1.5 mg 06/22/19 14:00 06/25/19 14:50 Klonopin - GT 1.5 mg TID JORGE Administration Docusate Sodium 100 mg 06/22/19 07:41 Colace Liquid - PO DAILY PRN CONSTIPATION Famotidine 10 mg 06/22/19 10:00 06/25/19 10:43 Pepcid NGT 10 mg BID JORGE Administration Fluticasone Propionate 2 spray 06/23/19 07:00 06/25/19 06:00 Flonase - NS 2 sprays AM JORGE Administration Heparin Sodium (Porcine) 5,000 unit 06/22/19 14:00 06/25/19 14:50 Heparin - SQ 5,000 unit TID JORGE Administration Lactobacillus Acidophilus 1 tab 06/22/19 22:00 06/24/19 22:25 Bacid - GT 1 tab HS JORGE Administration Lamotrigine 200 mg 06/22/19 10:00 06/25/19 10:41 Lamictal - GT 200 mg BID JORGE Administration Magnesium Hydroxide 20 ml 06/22/19 10:00 06/25/19 10:41 Milk Of Magnesia - GT 20 ml BID JORGE Administration Multivitamins/Minerals 15 ml 06/22/19 22:00 06/24/19 23:18 Certavite-Antioxidant Liquid GT 15 ml HS JORGE Administration Phenobarbital 45 mg 06/22/19 10:00 06/25/19 10:41 Phenobarbital Liquid - GT 45 mg BID JORGE Administration Polyethylene Glycol 17 gm 06/22/19 10:00 06/25/19 10:45 Miralax (For Daily Use) - PO 17 grams DAILY JORGE Administration Prednisone 30 mg 06/25/19 12:30 06/25/19 12:40 Deltasone - PO Not Given DAILY JORGE Sodium Chloride 2 spray 06/22/19 10:00 06/25/19 10:46 [place] Nasal [place] - NS 2 sprays BID JORGE Administration ASSESSMENT/PLAN: This is a 24 y/o M from [place] with hx Cerebral Palsy, Developmental Delay, cognitive impairment, functional quadriplegia, seizure disorder, Hx of herpes encephalitis, GERD, Asthma/reactive airway disease, and Hx of aspiration pneumonia, recently discharged from [facility] 06/09 s/p Pseudomonal PNA and flu treated (with Tamiflu, Zosyn, Steroid) requiring Intubation/Ventilation, now presents with [place]. #Acute Hypoxic Respiratory failure with sepsis 2/2 likely aspiration PNA s/p extubation day 4 on ventimax, weaning as tolerated - pt satting 97, pt developed low grade temp 99.9. c/w PO augmentin 600 BID (day 2) X 4 days. keep SaO2 >90% on vent settings ID (Dr Harrison) on case await recs on abx CXR- improved compared to previous on left side better aeration. -Chest PT -Albuterol treatment prn -short course of Solumedrol 40mg BID can begin to taper it. -Pt has improved on CXR after nasal trumpet, satting fine on ventimask. #Seizure disorder continue anti-seizure regimen Clonazepam, Lamotrigene, Phenobarbital #Hx of herpes Encephalitis maintained on Acyclovir # transaminases US Abdo - no acute pathology. #Macrocytosis - ?secondary to anti-seizure meds. B12/folate levels non-deficient DVT ppx: Hep TID FEN monitor lytes Jevity tube feeds off fluids Dispo: monitor on floors, on ventimask. Visit type - Emergency Visit Emergency Visit: Yes ED Registration Date: 06/11/19 Care time: The patient presented to the Emergency Department on the above date and was hospitalized for further evaluation of their emergent condition. - New Patient This patient is new to me today: No - Critical Care Critical Care patient: No - Discharge Referral Referred to [facility] Med P.C.: No ATTENDING PHYSICIAN STATEMENT I saw and evaluated the patient. I reviewed the resident's note and discussed the case with the resident. I agree with the resident's findings and plan as documented. SUBJECTIVE: OBJECTIVE: ASSESSMENT AND PLAN:
[2019-06-25] MEDS ORDERED: ACETAMINOPHEN 650 MG/20.3 ML ORAL SOLUTION (CUPS) PO PRN (21:05)
[2019-06-25] MEDS: LACTOBACILLUS ACIDOPHILUS 1 TABLET GT SCH (22:37)
[2019-06-25] MEDS: MULTIVIT-MINERALS ORAL LIQUID GT SCH (22:37)
[2019-06-26] MEDS: FLUTICASONE PROP 0.05% 16 GM NASAL SPRAY NS SCH (06:48)
[2019-06-26] MEDS: HEPARIN NA (PORCINE) 5,000 UNITS/ML 1ML VIAL SQ SCH ×3 (06:48→22:01)
[2019-06-26] MEDS: clonazePAM 0.5 MG TABLET GT SCH ×3 (06:48→22:01)
[2019-06-26 07:22] LABS: BASO % 0.3 % (0-2.0); HEMOGLOBIN 12.3 GM/dL (11.7-16.9); LYMPH % 39.5 % (8-40); MCH 34.5 pg (25.7-33.7); MCHC 34.3 g/dl (32.0-35.9); MEAN CELL VOLUME 100.6 fl (80-96); MEAN PLT VOLUME 9.1 fl (7.5-11.1); MONO % 8.8 % (3.8-10.2); NEUT % 51.4 % (42.8-82.8); PLATELET COUNT 310 K/MM3 (134-434); RBC 3.58 M/mm3 (4.00-5.60); RDW 14.4 % (11.9-15.9); WHITE BLOOD COUNT 15.2 K/mm3 (4.0-10.0)
[2019-06-26] MEDS: ALBUTEROL SO4 0.083% IH SOL 2.5 MG/3 ML VIAL.NEB. NEB SCH ×4 (08:00→20:27)
[2019-06-26 08:17] LABS: BLOOD UREA NITROGEN 15.2 mg/dL (7-18); CREATININE 0.6 mg/dL (0.55-1.3); POTASSIUM 3.9 mmol/L (3.5-5.1)
[2019-06-26 08:18] LABS: ALBUMIN 3.4 g/dl (3.4-5.0); BILIRUBIN,TOTAL 0.2 mg/dL (0.2-1); CALCIUM 9.7 mg/dL (8.5-10.1)
[2019-06-26] MEDS ORDERED: PT OWN MED DRAWER 7, Y5N ONE (09:29)
[2019-06-26] MEDS: MAGNESIUM HYDROX 2400MG/30ML ORAL SUSPENSION 30 ML CUP GT SCH ×2 (09:55→22:01)
[2019-06-26] MEDS: cloBAZam 10 MG TABLET GT SCH ×2 (09:56→22:01)
[2019-06-26] MEDS: predniSONE 10 MG TABLET (UD) PO SCH (09:56)
[2019-06-26] MEDS: PHENobarbital 20 MG/5 ML UNIT-DOSE CUP GT SCH ×2 (09:56→22:04)
[2019-06-26] MEDS: BACLOFEN 10 MG TABLET (FP) GT SCH ×2 (09:56→22:01)
[2019-06-26] MEDS: lamoTRIgine 100 MG TABLET GT SCH ×2 (09:56→22:01)
[2019-06-26] MEDS: BACITRACIN 15 GM TUBE TOPICAL OINTMENT TP SCH ×2 (09:57→22:03)
[2019-06-26] MEDS: AMOX TR/POTASSIUM CLAVULANATE 600 MG/5 ML GT SCH (09:57)
[2019-06-26] MEDS: POLYETHYLENE GLYCOL 3350 119 GM BTL PO SCH (09:57)
[2019-06-26] MEDS: SODIUM CHLORIDE NASAL SPRAY 44 ML BOTTLE NS SCH ×2 (09:58→22:04)
[2019-06-26] MEDS: FAMOTIDINE 40 MG/5 ML ORAL SUSPENSION NGT SCH ×2 (09:58→22:02)
[2019-06-26] MEDS: ACYCLOVIR 200 MG/5 ML LIQUID GT SCH ×2 (09:58→22:02)
--- NOTE | 2019-06-26 12:03 | PN ---
Progress Note (short form) - Note Progress Note: Currently receiving a BD TX. Maintained on NC O2. No acute events overnight. Intake & Output 06/23/19 06/24/19 06/25/19 06/26/19 23:59 23:59 23:59 23:59 Intake Total 248 1806 1895 594 Output Total 800 800 350 100 Balance -552 1006 1545 494 Weight 91 lb 12.8 oz Last Vital Signs Temp Pulse Resp BP Pulse Ox 98.7 F 83 20 100/47 L 97 06/26/19 09:00 06/26/19 09:00 06/26/19 09:00 06/26/19 09:00 06/26/19 09:00 Last Vital Signs Temp Pulse Resp BP Pulse Ox 98.7 F 83 20 100/47 L 97 06/26/19 09:00 06/26/19 09:00 06/26/19 09:00 06/26/19 09:00 06/26/19 09:00 Constitutional: Yes: NAD Eyes: Yes: WNL HENT: Yes: WNL Neck: Yes: WNL Cardiovascular: Yes: Regular Rate and Rhythm, S1, S2 Respiratory: Yes: Few scattered rhonchi Gastrointestinal: Yes: Normal Bowel Sounds, Soft Extremities: Yes: Other (contracted) Edema: No Labs: Laboratory Results - last 24 hr 06/25/19 06/26/19 06/26/19 21:25 06:25 06:25 WBC 15.2 H RBC 3.58 L Hgb 12.3 Hct 36.0 MCV 100.6 H MCH 34.5 H MCHC 34.3 RDW 14.4 Plt Count 310 MPV 9.1 Absolute Neuts (auto) 7.8 Neutrophils % 51.4 Lymphocytes % 39.5 D Monocytes % 8.8 Eosinophils % 0.0 Basophils % 0.3 Nucleated RBC % 0 Sodium 139 Potassium 3.9 Chloride 102 Carbon Dioxide 31 Anion Gap 5 L BUN 15.2 Creatinine 0.6 Est GFR (CKD-EPI)AfAm 164.25 Est GFR (CKD-EPI)NonAf 141.72 Random Glucose 97 Lactic Acid 1.7 Calcium 9.7 Total Bilirubin 0.2 AST 13 L ALT 31 Alkaline Phosphatase 132 H Total Protein 8.0 Albumin 3.4 Problem List - Problems (1) Shortness of breath Code(s): R06.02 - SHORTNESS OF BREATH (2) Aspiration pneumonia Code(s): J69.0 - PNEUMONITIS DUE TO INHALATION OF FOOD AND VOMIT Qualifiers: Aspiration pneumonia type: unspecified Laterality: right Lung location: lower lobe of lung Qualified Code(s): J69.0 - Pneumonitis due to inhalation of food and vomit (3) Dependence on continuous supplemental oxygen Code(s): Z99.81 - DEPENDENCE ON SUPPLEMENTAL OXYGEN (4) PNA (pneumonia) Code(s): J18.9 - PNEUMONIA, UNSPECIFIED ORGANISM (5) Acute hypoxemic respiratory failure Code(s): J96.01 - ACUTE RESPIRATORY FAILURE WITH HYPOXIA (6) Seizure Code(s): R56.9 - UNSPECIFIED CONVULSIONS (7) Aspiration pneumonia Code(s): J69.0 - PNEUMONITIS DUE TO INHALATION OF FOOD AND VOMIT (8) Respiratory failure Code(s): J96.90 - RESPIRATORY FAILURE, UNSP, UNSP W HYPOXIA OR HYPERCAPNIA Qualifiers: Chronicity: acute Respiratory failure complication: hypoxia Qualified Code(s): J96.01 - Acute respiratory failure with hypoxia Assessment/Plan Acute Hypoxic Respiratory Failure improving Pneumonia likely Aspiration IMPROVING Bacteremia Cerebral Palsy Mental Retardation Seizure Disorder GERD Anemia PLAN: - Chest PT - BD TX - NC O2 - Augmentin - Prednsone - DC planning Dr Price
--- NOTE | 2019-06-26 12:25 | PN ---
Progress Note (short form) - Note Progress Note: SUBJECTIVE: Non-verbal, unable to participate in medical interview. OBJECTIVE: Tmax 100.1, Hemodynamically stable. Smiling. 95% on 2L O2. Last Vital Signs Temp Pulse Resp BP Pulse Ox 98.7 F 83 20 100/47 L 97 06/26/19 09:00 06/26/19 09:00 06/26/19 09:00 06/26/19 09:00 06/26/19 09:00 HEENT - Small ulcer on R bottom lip healing. No collection/surrounding erythema. Heart - S1, S2, RRR. Lungs - harsh breath sounds, reduced on Left. Abdomen - soft, non-tender. PEG in situ. PEG site clean. Extremities - wasting, contractures LEs. Laboratory Results - last 24 hr 06/25/19 06/26/19 06/26/19 21:25 06:25 06:25 WBC 15.2 H RBC 3.58 L Hgb 12.3 Hct 36.0 MCV 100.6 H MCH 34.5 H MCHC 34.3 RDW 14.4 Plt Count 310 MPV 9.1 Absolute Neuts (auto) 7.8 Neutrophils % 51.4 Lymphocytes % 39.5 D Monocytes % 8.8 Eosinophils % 0.0 Basophils % 0.3 Nucleated RBC % 0 Sodium 139 Potassium 3.9 Chloride 102 Carbon Dioxide 31 Anion Gap 5 L BUN 15.2 Creatinine 0.6 Est GFR (CKD-EPI)AfAm 164.25 Est GFR (CKD-EPI)NonAf 141.72 Random Glucose 97 Lactic Acid 1.7 Calcium 9.7 Total Bilirubin 0.2 AST 13 L ALT 31 Alkaline Phosphatase 132 H Total Protein 8.0 Albumin 3.4 Current Medications Generic Name Dose Route Start Last Admin Trade Name Freq PRN Reason Stop Dose Admin Acetaminophen 650 mg 06/25/19 21:05 06/25/19 22:32 Tylenol Oral Solution - PO 650 mg Q6H PRN Administration FEVER Acyclovir 400 mg 06/22/19 10:00 06/26/19 09:58 Zovirax Oral Suspension - GT 400 mg BID JORGE Administration Albuterol Sulfate 1 amp 06/22/19 08:00 06/26/19 11:52 Ventolin 0.083% Nebulizer Soln - NEB 1 amp RQID JORGE Administration Amoxicillin/Clavulanate Potassium 600 mg 06/23/19 17:30 06/26/19 09:57 Augmentin 600 Mg/5 Ml Oral Suspension - GT 5 ml BID@0800,1730 JORGE Administration Bacitracin 1 applic 06/22/19 10:00 06/26/19 09:57 Bacitracin - TP 1 applic BID JORGE Administration Baclofen 10 mg 06/22/19 10:00 06/26/19 09:56 Lioresal - GT 10 mg BID JORGE Administration Clobazam 10 mg 06/22/19 22:00 06/25/19 22:37 Onfi - GT 10 mg HS JORGE Administration Clobazam 5 mg 06/22/19 10:00 06/26/19 09:56 Onfi - GT 5 mg DAILY JORGE Administration Clonazepam 1.5 mg 06/22/19 14:00 06/26/19 06:48 Klonopin - GT 1.5 mg TID JORGE Administration Docusate Sodium 100 mg 06/22/19 07:41 Colace Liquid - PO DAILY PRN CONSTIPATION Famotidine 10 mg 06/22/19 10:00 06/26/19 09:58 Pepcid NGT 10 mg BID JORGE Administration Fluticasone Propionate 2 spray 06/23/19 07:00 06/26/19 06:48 Flonase - NS 2 sprays AM JORGE Administration Heparin Sodium (Porcine) 5,000 unit 06/22/19 14:00 06/26/19 06:48 Heparin - SQ 5,000 unit TID JORGE Administration Lactobacillus Acidophilus 1 tab 06/22/19 22:00 06/25/19 22:37 Bacid - GT 1 tab HS JORGE Administration Lamotrigine 200 mg 06/22/19 10:00 06/26/19 09:56 Lamictal - GT 200 mg BID JORGE Administration Magnesium Hydroxide 20 ml 06/22/19 10:00 06/26/19 09:55 Milk Of Magnesia - GT 20 ml BID JORGE Administration Multivitamins/Minerals 15 ml 06/22/19 22:00 06/25/19 22:37 Certavite-Antioxidant Liquid GT 15 ml HS JORGE Administration Phenobarbital 45 mg 06/22/19 10:00 06/26/19 09:56 Phenobarbital Liquid - GT 45 mg BID JORGE Administration Polyethylene Glycol 17 gm 06/22/19 10:00 06/26/19 09:57 Miralax (For Daily Use) - PO 17 grams DAILY JORGE Administration Prednisone 30 mg 06/25/19 12:30 06/26/19 09:56 Deltasone - PO 30 mg DAILY JORGE Administration Sodium Chloride 2 spray 06/22/19 10:00 06/26/19 09:58 [place] Nasal [place] - NS 2 sprays BID JORGE Administration Home Medications Medication Instructions Recorded Acyclovir 400 mg GT BID 04/25/17 Baclofen 10 mg GT BID 04/25/17 Clobazam [Onfi -] 10 mg GT HS 04/25/17 Clonazepam 1.5 mg GT TID 04/25/17 Lactobacillus Acidophilus 1 each GT HS 04/25/17 [Acidophilus] Lamotrigine 200 mg GT BID 04/25/17 Multivitamin [Poly-Vitamin] 1 each GT HS 04/25/17 Phenobarbital 48.6 mg GT BID 04/25/17 Ranitidine [Zantac -] 75 mg GT BID #0 tab 03/29/18 Diazepam Rectal Gel [Diastat 7.[address] PRN PRN 05/23/18 Rectal Gel -] Protein Supplement [Promod] 946 ml GT DAILY 05/23/18 Budesonide [Pulmicort 0.25 mg 1 neb IH BID 02/05/19 Nebulizer -] Fluticasone Prop 0.05% Nasal 2 spray NS AM 02/05/19 [Flonase -] Magnesium Hydrox 2400MG/30Ml [Milk 20 ml GT BID 02/05/19 of Magnesia -] Albuterol 2.5/Ipratropium 0.5 1 neb IH QID PRN #30 neb 02/14/19 [Duoneb -] Clobazam [Onfi -] 5 mg GT DAILY #30 tablet MDD 5mg 02/14/19 /24h Bacitracin - [Bacitracin Topical 1 applic TP BID 06/01/19 Ointment -] Sodium Chloride/Aloe Vera [[place] 22 ml NS BID 06/01/19 Saline Nasal Gel [place]] predniSONE [Deltasone -] 10 mg PEG DAILY #2 tablet 06/09/19 predniSONE [Deltasone -] 20 mg PEG DAILY #6 tablet 06/09/19 ASSESSMENT AND PLAN: 24 year old male [place] resident with history of Cerebral Palsy, Developmental Delay, cognitive impairment, functional quadriplegia, seizure disorder, Hx of herpes encephalitis, GERD, Asthma/reactive airway disease, and Hx of aspiration pneumonia, recently discharged from [facility] 06/09 after being treated (with Tamiflu, Zosyn, Steroid) for resp failure sec to Influenza and Pseudomonal Pneumonia requiring Intubation/Ventilation, re-presents from [place] with respiratory failure. CT Chest - bilateral infiltrates 1. Acute Hypoxic Respiratory failure and Sepsis secondary to recurrent/ persistent Aspiration Pneumonia s/p Intubation 06/11/19, Extubation 06/20/19. Weaned off HFOT to 2L via NC. CXR - some improvement in opacification L lung. Sputum Cx Pseudomonas positive Recently completed course of Tamiflu for Influenza A Urine Legionella neg Blood Cx - 1 bottle pos for gram pos cocci in clusters, likely contaminant. Repeat Blood Cx negative. Febrile again, WBC up to 15.2. Short course of Medrol as per Pulm. Zosyn transitioned to oral Augmentin as per ID - further management as per ID. Repeat Cultures pending - Blood, Sputum, and Urine - due to new fever. 2. Seizure disorder - continue anti-seizure regimen (Clonazepam, Lamotrigene, Phenobarbital) 3. Hx of Herpes Encephalitis - maintained on Acyclovir 4. Recent elevation in transaminases ? sepsis related/Abx related - resolved. US Abdo - no acute pathology. 5. Macrocytosis ?sec to anti-seizure meds. B12/folate levels non-deficient. DVT PX - Heparin SQ GI Px - Famotidine Visit type - Emergency Visit Emergency Visit: Yes ED Registration Date: 06/11/19 Care time: The patient presented to the Emergency Department on the above date and was hospitalized for further evaluation of their emergent condition. - New Patient This patient is new to me today: No - Critical Care Critical Care patient: No - Discharge Referral Referred to [facility] Med P.C.: No
[2019-06-26] MEDS ORDERED: SODIUM CHLORIDE 1,000 ML IV STA (12:52)
[2019-06-26] MEDS ORDERED: SODIUM CHLORIDE 1,000 ML IV SCH (14:00)
--- NOTE | 2019-06-26 17:44 | PN ---
Progress Note, Physician History of Present Illness: NO ACUTE DISTRESS ON NASAL CANNULA LOW GRADE TEMP NOTED - Current Medication List Current Medications: Active Medications Acetaminophen (Tylenol Oral Solution -) 650 mg PO Q6H PRN PRN Reason: FEVER Last Admin: 06/25/19 22:32 Dose: 650 mg Acyclovir (Zovirax Oral Suspension -) 400 mg GT BID [facility] Last Admin: 06/26/19 09:58 Dose: 400 mg Albuterol Sulfate (Ventolin 0.083% Nebulizer Soln -) 1 amp NEB RQID [facility] Last Admin: 06/26/19 16:24 Dose: 1 amp Bacitracin (Bacitracin -) 1 applic TP BID [facility] Last Admin: 06/26/19 09:57 Dose: 1 applic Baclofen (Lioresal -) 10 mg GT BID [facility] Last Admin: 06/26/19 09:56 Dose: 10 mg Clobazam (Onfi -) 10 mg GT HS [facility] Last Admin: 06/25/19 22:37 Dose: 10 mg Clobazam (Onfi -) 5 mg GT DAILY [facility] Last Admin: 06/26/19 09:56 Dose: 5 mg Clonazepam (Klonopin -) 1.5 mg GT TID [facility] Last Admin: 06/26/19 13:21 Dose: 1.5 mg Docusate Sodium (Colace Liquid -) 100 mg PO DAILY PRN PRN Reason: CONSTIPATION Famotidine (Pepcid) 10 mg NGT BID [facility] Last Admin: 06/26/19 09:58 Dose: 10 mg Fluticasone Propionate (Flonase -) 2 spray NS AM [facility] Last Admin: 06/26/19 06:48 Dose: 2 sprays Heparin Sodium (Porcine) (Heparin -) 5,000 unit SQ TID [facility] Last Admin: 06/26/19 13:21 Dose: 5,000 unit Sodium Chloride (Normal Saline -) 1,000 mls @ 75 mls/hr IV ASDIR [facility] Last Admin: 06/26/19 15:03 Dose: Not Given Lactobacillus Acidophilus (Bacid -) 1 tab GT HS [facility] Last Admin: 06/25/19 22:37 Dose: 1 tab Lamotrigine (Lamictal -) 200 mg GT BID [facility] Last Admin: 06/26/19 09:56 Dose: 200 mg Magnesium Hydroxide (Milk Of Magnesia -) 20 ml GT BID [facility] Last Admin: 06/26/19 09:55 Dose: 20 ml Multivitamins/Minerals (Certavite-Antioxidant Liquid) 15 ml GT HS [facility] Last Admin: 06/25/19 22:37 Dose: 15 ml Phenobarbital (Phenobarbital Liquid -) 45 mg GT BID [facility] Last Admin: 06/26/19 09:56 Dose: 45 mg Polyethylene Glycol (Miralax (For Daily Use) -) 17 gm PO DAILY [facility] Last Admin: 06/26/19 09:57 Dose: 17 grams Prednisone (Deltasone -) 30 mg PO DAILY [facility] Last Admin: 06/26/19 09:56 Dose: 30 mg Sodium Chloride ([place] Nasal [place] -) 2 spray NS BID [facility] Last Admin: 06/26/19 09:58 Dose: 2 sprays - Objective Vital Signs: Vital Signs Temperature 99.6 F 06/26/19 14:28 Pulse Rate 84 06/26/19 14:28 Respiratory Rate 20 06/26/19 14:28 Blood Pressure 120/70 06/26/19 14:28 O2 Sat by Pulse Oximetry (%) 97 06/26/19 09:00 Constitutional: Yes: No Distress Eyes: Yes: Conjunctiva Clear Cardiovascular: Yes: Regular Rate and Rhythm, S1, S2 Respiratory: Yes: Rhonchi Gastrointestinal: Yes: Normal Bowel Sounds, Soft Labs: CBC, BMP 06/26/19 06:25 06/26/19 06:25 INR, PTT INR 1.13 (0.83-1.09) H 06/11/19 11:10 Assessment/Plan S/P RESP FAILURE PROBABLE RECURRENT ASPIRATION FEVER/ LEUKOCYTOSIS S/P RECENT INFLUENZA CONTINUE AUGMENTIN VIA GT
[2019-06-26] MEDS: LACTOBACILLUS ACIDOPHILUS 1 TABLET GT SCH (22:01)
[2019-06-26] MEDS: MULTIVIT-MINERALS ORAL LIQUID GT SCH (22:02)
[2019-06-27] MEDS: HEPARIN NA (PORCINE) 5,000 UNITS/ML 1ML VIAL SQ SCH ×2 (06:24→13:22)
[2019-06-27] MEDS: clonazePAM 0.5 MG TABLET GT SCH ×2 (06:24→13:23)
[2019-06-27] MEDS: FLUTICASONE PROP 0.05% 16 GM NASAL SPRAY NS SCH (06:25)
[2019-06-27] MEDS ORDERED: PT OWN MED DRAWER 7, Y5N ONE ×3 (08:00→10:42)
[2019-06-27] MEDS ORDERED: AMOX TR/POTASSIUM CLAVULANATE 600 MG/5 ML PO SCH (08:00)
[2019-06-27] MEDS: ALBUTEROL SO4 0.083% IH SOL 2.5 MG/3 ML VIAL.NEB. NEB SCH ×2 (08:33→11:30)
[2019-06-27] MEDS: PHENobarbital 20 MG/5 ML UNIT-DOSE CUP GT SCH (10:16)
[2019-06-27] MEDS: MAGNESIUM HYDROX 2400MG/30ML ORAL SUSPENSION 30 ML CUP GT SCH (10:16)
[2019-06-27] MEDS: BACLOFEN 10 MG TABLET (FP) GT SCH (10:17)
[2019-06-27] MEDS: predniSONE 10 MG TABLET (UD) PO SCH (10:17)
[2019-06-27] MEDS: lamoTRIgine 100 MG TABLET GT SCH (10:18)
[2019-06-27] MEDS: BACITRACIN 15 GM TUBE TOPICAL OINTMENT TP SCH (10:20)
[2019-06-27] MEDS: POLYETHYLENE GLYCOL 3350 119 GM BTL PO SCH (10:20)
[2019-06-27] MEDS: SODIUM CHLORIDE NASAL SPRAY 44 ML BOTTLE NS SCH (10:21)
[2019-06-27] MEDS: ACYCLOVIR 200 MG/5 ML LIQUID GT SCH (10:22)
[2019-06-27] MEDS: cloBAZam 10 MG TABLET GT SCH (10:22)
[2019-06-27] MEDS: FAMOTIDINE 40 MG/5 ML ORAL SUSPENSION NGT SCH (10:23)
[2019-06-27 10:32] LABS: BASO % 0.3 % (0-2.0); HEMOGLOBIN 12.1 GM/dL (11.7-16.9); LYMPH % 55.2 % (8-40); MCH 34.5 pg (25.7-33.7); MCHC 34.6 g/dl (32.0-35.9); MEAN CELL VOLUME 99.9 fl (80-96); MEAN PLT VOLUME 8.8 fl (7.5-11.1); MONO % 8.4 % (3.8-10.2); NEUT % 36.1 % (42.8-82.8); PLATELET COUNT 277 K/MM3 (134-434); RBC 3.51 M/mm3 (4.00-5.60); RDW 14.3 % (11.9-15.9)
[2019-06-27 10:54] LABS: ALBUMIN 3.1 g/dl (3.4-5.0); BILIRUBIN,TOTAL 0.1 mg/dL (0.2-1); CALCIUM 9.2 mg/dL (8.5-10.1); CREATININE 0.6 mg/dL (0.55-1.3); POTASSIUM 3.8 mmol/L (3.5-5.1); TOT PROT 7.4 g/dl (6.4-8.2)
--- NOTE | 2019-06-27 11:22 | PN ---
Progress Note (short form) - Note Progress Note: Maintained on NC O2. Breathing is non-labored. No acute events overnight. Intake & Output 06/24/19 06/25/19 06/26/19 06/27/19 23:59 23:59 23:59 23:59 Intake Total 1806 1895 1090 822 Output Total 800 350 100 700 Balance 1006 1545 990 122 Weight 91 lb 12.8 oz Last Vital Signs Temp Pulse Resp BP Pulse Ox 98.4 F 76 18 106/62 96 06/27/19 10:13 06/27/19 10:13 06/27/19 10:13 06/27/19 10:13 06/27/19 10:30 Active Medications Acetaminophen (Tylenol Oral Solution -) 650 mg PO Q6H PRN PRN Reason: FEVER Last Admin: 06/25/19 22:32 Dose: 650 mg Acyclovir (Zovirax Oral Suspension -) 400 mg GT BID [facility] Last Admin: 06/27/19 10:22 Dose: 400 mg Albuterol Sulfate (Ventolin 0.083% Nebulizer Soln -) 1 amp NEB RQID [facility] Last Admin: 06/27/19 08:33 Dose: 1 amp Amoxicillin/Clavulanate Potassium (Augmentin 600 Mg/5 Ml Oral Suspension -) 600 mg PO BID@0800,1730 [facility] Last Admin: 06/27/19 10:19 Dose: 600 mg Bacitracin (Bacitracin -) 1 applic TP BID [facility] Last Admin: 06/27/19 10:20 Dose: 1 applic Baclofen (Lioresal -) 10 mg GT BID [facility] Last Admin: 06/27/19 10:17 Dose: 10 mg Clobazam (Onfi -) 10 mg GT HS [facility] Last Admin: 06/26/19 22:01 Dose: 10 mg Clobazam (Onfi -) 5 mg GT DAILY [facility] Last Admin: 06/27/19 10:22 Dose: 5 mg Clonazepam (Klonopin -) 1.5 mg GT TID [facility] Last Admin: 06/27/19 06:24 Dose: 1.5 mg Docusate Sodium (Colace Liquid -) 100 mg PO DAILY PRN PRN Reason: CONSTIPATION Famotidine (Pepcid) 10 mg NGT BID [facility] Last Admin: 06/27/19 10:23 Dose: 10 mg Fluticasone Propionate (Flonase -) 2 spray NS AM [facility] Last Admin: 06/27/19 06:25 Dose: 2 sprays Heparin Sodium (Porcine) (Heparin -) 5,000 unit SQ TID [facility] Last Admin: 06/27/19 06:24 Dose: 5,000 unit Sodium Chloride (Normal Saline -) 1,000 mls @ 75 mls/hr IV ASDIR [facility] Last Admin: 06/26/19 15:03 Dose: Not Given Lactobacillus Acidophilus (Bacid -) 1 tab GT HS [facility] Last Admin: 06/26/19 22:01 Dose: 1 tab Lamotrigine (Lamictal -) 200 mg GT BID [facility] Last Admin: 06/27/19 10:18 Dose: 200 mg Magnesium Hydroxide (Milk Of Magnesia -) 20 ml GT BID [facility] Last Admin: 06/27/19 10:16 Dose: 20 ml Multivitamins/Minerals (Certavite-Antioxidant Liquid) 15 ml GT HS [facility] Last Admin: 06/26/19 22:02 Dose: 15 ml Phenobarbital (Phenobarbital Liquid -) 45 mg GT BID [facility] Last Admin: 06/27/19 10:16 Dose: 45 mg Polyethylene Glycol (Miralax (For Daily Use) -) 17 gm PO DAILY [facility] Last Admin: 06/27/19 10:20 Dose: 17 grams Prednisone (Deltasone -) 30 mg PO DAILY [facility] Last Admin: 06/27/19 10:17 Dose: 30 mg Sodium Chloride ([place] Nasal [place] -) 2 spray NS BID [facility] Last Admin: 06/27/19 10:21 Dose: 2 sprays Constitutional: Yes: NAD Eyes: Yes: WNL HENT: Yes: WNL Neck: Yes: WNL Cardiovascular: Yes: Regular Rate and Rhythm, S1, S2 Respiratory: Yes: Few scattered rhonchi Gastrointestinal: Yes: Normal Bowel Sounds, Soft Extremities: Yes: Other (contracted) Edema: No Labs: Laboratory Results - last 24 hr 06/27/19 06/27/19 09:55 09:55 WBC 10.0 RBC 3.51 L Hgb 12.1 Hct 35.0 L MCV 99.9 H MCH 34.5 H MCHC 34.6 RDW 14.3 Plt Count 277 MPV 8.8 Absolute Neuts (auto) 3.6 Neutrophils % 36.1 L D Lymphocytes % 55.2 H D Monocytes % 8.4 Eosinophils % 0.0 Basophils % 0.3 Nucleated RBC % 0 Sodium 141 Potassium 3.8 Chloride 104 Carbon Dioxide 30 Anion Gap 7 L BUN 14.0 Creatinine 0.6 Est GFR (CKD-EPI)AfAm 164.25 Est GFR (CKD-EPI)NonAf 141.72 Random Glucose 98 Calcium 9.2 Total Bilirubin 0.1 L AST 14 L ALT 30 Alkaline Phosphatase 122 H Total Protein 7.4 Albumin 3.1 L Problem List - Problems (1) Shortness of breath Code(s): R06.02 - SHORTNESS OF BREATH (2) Aspiration pneumonia Code(s): J69.0 - PNEUMONITIS DUE TO INHALATION OF FOOD AND VOMIT Qualifiers: Aspiration pneumonia type: unspecified Laterality: right Lung location: lower lobe of lung Qualified Code(s): J69.0 - Pneumonitis due to inhalation of food and vomit (3) Dependence on continuous supplemental oxygen Code(s): Z99.81 - DEPENDENCE ON SUPPLEMENTAL OXYGEN (4) PNA (pneumonia) Code(s): J18.9 - PNEUMONIA, UNSPECIFIED ORGANISM (5) Acute hypoxemic respiratory failure Code(s): J96.01 - ACUTE RESPIRATORY FAILURE WITH HYPOXIA (6) Seizure Code(s): R56.9 - UNSPECIFIED CONVULSIONS (7) Aspiration pneumonia Code(s): J69.0 - PNEUMONITIS DUE TO INHALATION OF FOOD AND VOMIT (8) Respiratory failure Code(s): J96.90 - RESPIRATORY FAILURE, UNSP, UNSP W HYPOXIA OR HYPERCAPNIA Qualifiers: Chronicity: acute Respiratory failure complication: hypoxia Qualified Code(s): J96.01 - Acute respiratory failure with hypoxia Assessment/Plan Acute Hypoxic Respiratory Failure improving Pneumonia likely Aspiration IMPROVING Bacteremia Cerebral Palsy Mental Retardation Seizure Disorder GERD Anemia PLAN: - Chest PT - BD [place] - [place] O2 - Augmentin - Prednsone - DC planning Dr Price
[2019-06-27 12:08] LABS: ANISOCYTOSIS 0; MACROCYTOSIS 0; PLATELET ESTIMATE NORMAL
--- NOTE | 2019-06-27 12:14 | PN ---
Teaching Attending Note Name of Resident: Oriana Rasmussen ATTENDING PHYSICIAN STATEMENT I saw and evaluated the patient. I reviewed the resident's note and discussed the case with the resident. I agree with the resident's findings and plan as documented. SUBJECTIVE: Non-verbal, unable to participate in medical interview. OBJECTIVE: Tmax 99.8, Hemodynamically stable. Smiling. 96% on 2L O2. Last Vital Signs Temp Pulse Resp BP Pulse Ox 98.4 F 76 18 106/62 96 06/27/19 10:13 06/27/19 10:13 06/27/19 10:13 06/27/19 10:13 06/27/19 10:30 HEENT - Small ulcer on R bottom lip healing. No collection/surrounding erythema. Heart - S1, S2, RRR. Lungs - good air entry, harsh breath sounds improved, reduced on Left. Abdomen - soft, non-tender. PEG in situ. PEG site clean. Extremities - wasting, contractures LEs. Laboratory Results - last 24 hr 06/27/19 06/27/19 09:55 09:55 WBC 10.0 RBC 3.51 L Hgb 12.1 Hct 35.0 L MCV 99.9 H MCH 34.5 H MCHC 34.6 RDW 14.3 Plt Count 277 MPV 8.8 Absolute Neuts (auto) 3.6 Neutrophils % 36.1 L D Lymphocytes % 55.2 H D Monocytes % 8.4 Eosinophils % 0.0 Basophils % 0.3 Nucleated RBC % 0 Sodium 141 Potassium 3.8 Chloride 104 Carbon Dioxide 30 Anion Gap 7 L BUN 14.0 Creatinine 0.6 Est GFR (CKD-EPI)AfAm 164.25 Est GFR (CKD-EPI)NonAf 141.72 Random Glucose 98 Calcium 9.2 Total Bilirubin 0.1 L AST 14 L ALT 30 Alkaline Phosphatase 122 H Total Protein 7.4 Albumin 3.1 L Current Medications Generic Name Dose Route Start Last Admin Trade Name Freq PRN Reason Stop Dose Admin Acetaminophen 650 mg 06/25/19 21:05 06/25/19 22:32 Tylenol Oral Solution - PO 650 mg Q6H PRN Administration FEVER Acyclovir 400 mg 06/22/19 10:00 06/27/19 10:22 Zovirax Oral Suspension - GT 400 mg BID JORGE Administration Albuterol Sulfate 1 amp 06/22/19 08:00 06/27/19 11:30 Ventolin 0.083% Nebulizer Soln - NEB 1 amp RQID JORGE Administration Amoxicillin/Clavulanate Potassium 600 mg 06/27/19 08:00 06/27/19 10:19 Augmentin 600 Mg/5 Ml Oral Suspension - PO 600 mg BID@0800,1730 JORGE Administration Bacitracin 1 applic 06/22/19 10:00 06/27/19 10:20 Bacitracin - TP 1 applic BID JORGE Administration Baclofen 10 mg 06/22/19 10:00 06/27/19 10:17 Lioresal - GT 10 mg BID JORGE Administration Clobazam 10 mg 06/22/19 22:00 06/26/19 22:01 Onfi - GT 10 mg HS JORGE Administration Clobazam 5 mg 06/22/19 10:00 06/27/19 10:22 Onfi - GT 5 mg DAILY JORGE Administration Clonazepam 1.5 mg 06/22/19 14:00 06/27/19 06:24 Klonopin - GT 1.5 mg TID JORGE Administration Docusate Sodium 100 mg 06/22/19 07:41 Colace Liquid - PO DAILY PRN CONSTIPATION Famotidine 10 mg 06/22/19 10:00 06/27/19 10:23 Pepcid NGT 10 mg BID JORGE Administration Fluticasone Propionate 2 spray 06/23/19 07:00 06/27/19 06:25 Flonase - NS 2 sprays AM JORGE Administration Heparin Sodium (Porcine) 5,000 unit 06/22/19 14:00 06/27/19 06:24 Heparin - SQ 5,000 unit TID JORGE Administration Sodium Chloride 1,000 mls @ 75 mls/hr 06/26/19 14:00 06/26/19 15:03 Normal Saline - IV Not Given ASDIR JORGE Lactobacillus Acidophilus 1 tab 06/22/19 22:00 06/26/19 22:01 Bacid - GT 1 tab HS JORGE Administration Lamotrigine 200 mg 06/22/19 10:00 06/27/19 10:18 Lamictal - GT 200 mg BID JORGE Administration Magnesium Hydroxide 20 ml 06/22/19 10:00 06/27/19 10:16 Milk Of Magnesia - GT 20 ml BID JORGE Administration Multivitamins/Minerals 15 ml 06/22/19 22:00 06/26/19 22:02 Certavite-Antioxidant Liquid GT 15 ml HS JORGE Administration Phenobarbital 45 mg 06/22/19 10:00 06/27/19 10:16 Phenobarbital Liquid - GT 45 mg BID JORGE Administration Polyethylene Glycol 17 gm 06/22/19 10:00 06/27/19 10:20 Miralax (For Daily Use) - PO 17 grams DAILY JORGE Administration Prednisone 30 mg 06/25/19 12:30 06/27/19 10:17 Deltasone - PO 30 mg DAILY JORGE Administration Sodium Chloride 2 spray 06/22/19 10:00 06/27/19 10:21 [place] Nasal [place] - NS 2 sprays BID JORGE Administration Home Medications Medication Instructions Recorded Acyclovir 400 mg GT BID 04/25/17 Baclofen 10 mg GT BID 04/25/17 Clobazam [Onfi -] 10 mg GT HS 04/25/17 Clonazepam 1.5 mg GT TID 04/25/17 Lactobacillus Acidophilus 1 each GT HS 04/25/17 [Acidophilus] Lamotrigine 200 mg GT BID 04/25/17 Multivitamin [Poly-Vitamin] 1 each GT HS 04/25/17 Phenobarbital 48.6 mg GT BID 04/25/17 Ranitidine [Zantac -] 75 mg GT BID #0 tab 03/29/18 Diazepam Rectal Gel [Diastat 7.5 mg [place] PRN PRN 05/23/18 Rectal Gel -] Protein Supplement [Promod] 946 ml GT DAILY 05/23/18 Budesonide [Pulmicort 0.25 mg 1 neb IH BID 02/05/19 Nebulizer -] Fluticasone Prop 0.05% Nasal 2 spray NS AM 02/05/19 [Flonase -] Magnesium Hydrox 2400MG/30Ml [Milk 20 ml GT BID 02/05/19 of Magnesia -] Albuterol 2.5/Ipratropium 0.5 1 neb IH QID PRN #30 neb 02/14/19 [Duoneb -] Clobazam [Onfi -] 5 mg GT DAILY #30 tablet MDD 5mg 02/14/19 /24h Bacitracin - [Bacitracin Topical 1 applic TP BID 06/01/19 Ointment -] Sodium Chloride/Aloe Vera [[place] 22 ml NS BID 06/01/19 Saline Nasal Gel [place]] predniSONE [Deltasone -] 10 mg PEG DAILY #2 tablet 06/09/19 predniSONE [Deltasone -] 20 mg PEG DAILY #6 tablet 06/09/19 ASSESSMENT AND PLAN: 24 year old male [place] resident with history of Cerebral Palsy, Developmental Delay, cognitive impairment, functional quadriplegia, seizure disorder, Hx of herpes encephalitis, GERD, Asthma/reactive airway disease, and Hx of aspiration pneumonia, recently discharged from [facility] 06/09 after being treated (with Tamiflu, Zosyn, Steroid) for resp failure sec to Influenza and Pseudomonal Pneumonia requiring Intubation/Ventilation, re-presents from [place] with respiratory failure. CT Chest - bilateral infiltrates 1. Acute Hypoxic Respiratory failure and Sepsis secondary to recurrent/ persistent Aspiration Pneumonia s/p Intubation 06/11/19, Extubation 06/20/19. Weaned off HFOT to 2L via NC. CXR - some improvement in opacification L lung. continue to wean off O2. Sputum Cx Pseudomonas positive Recently completed course of Tamiflu for Influenza A Urine Legionella neg Blood Cx - 1 bottle pos for gram pos cocci in clusters, likely contaminant. Repeat Blood Cx negative. Medrol transitioned to Prednisone - for tapering course on discharge. Zosyn transitioned to oral Augmentin as per ID - for 4 more days as per ID. Low grade occasional temperatures likey due to recurrent aspiration. Hemodynamically stable and cleared for discharge by Pulmonary. 2. Seizure disorder - continue anti-seizure regimen (Clonazepam, Lamotrigene, Phenobarbital) 3. Hx of Herpes Encephalitis - maintained on Acyclovir 4. Recent elevation in transaminases ? sepsis related/Abx related - resolved. US Abdo - no acute pathology. 5. Macrocytosis ?sec to anti-seizure meds. B12/folate levels non-deficient. DVT PX - Heparin SQ GI Px - Famotidine Medically optimized for discharge. Cleared by Pulmonary.
--- NOTE | 2019-06-27 13:02 | DS ---
Physical Exam: SUBJECTIVE: Patient seen and examined at bedside. No acute events overnight. OBJECTIVE: Vital Signs Period Temp Pulse Resp BP Sys/[place]ina[place] Pulse Ox Last 24 Hr 98.3 F-99.6 F 74-99 18-20 102-120/50-77 94-98 PHYSICAL EXAM GENERAL: The patient is awake and alert, in no acute distress. ENT: ulcer on right lower lip, with minimal amounts of secretions and oral thrush. NECK: supple. LUNGS: Decreased breath sounds on Left side, less secretions today, no rhonchi or wheezing appreciated. On NC. HEART: Regular rate and rhythm, S1, S2 without murmur, rub or gallop. ABDOMEN: PEG tube present, no erythema around site. mild distension, no guarding , no rebound, no masses. EXTREMITIES: Contracted, 2+ pulses, warm, well-perfused, no edema. NEUROLOGICAL: Unable to assess SKIN: Diffuse rash on chest. LABS Laboratory Results - last 24 hr 06/27/19 06/27/19 09:55 09:55 WBC 10.0 RBC 3.51 L Hgb 12.1 Hct 35.0 L MCV 99.9 H MCH 34.5 H MCHC 34.6 RDW 14.3 Plt Count 277 MPV 8.8 Absolute Neuts (auto) 3.6 Neutrophils % 36.1 L D Neutrophils % (Manual) 39.4 L D Band Neutrophils % 0.0 Lymphocytes % 55.2 H D Lymphocytes % (Manual) 52.9 H D Monocytes % 8.4 Monocytes % (Manual) 3 L Eosinophils % 0.0 Eosinophils % (Manual) 0.0 Basophils % 0.3 Basophils % (Manual) 0.0 Myelocytes % (Man) 0 Promyelocytes % (Man) 0 Blast Cells % (Manual) 0 Nucleated RBC % 0 Metamyelocytes 0 D Hypochromia 1+ Platelet Estimate Normal Polychromasia 0 Poikilocytosis 0 Anisocytosis 0 Microcytosis 0 Macrocytosis 0 Sodium 141 Potassium 3.8 Chloride 104 Carbon Dioxide 30 Anion Gap 7 L BUN 14.0 Creatinine 0.6 Est GFR (CKD-EPI)AfAm 164.25 Est GFR (CKD-EPI)NonAf 141.72 Random Glucose 98 Calcium 9.2 Total Bilirubin 0.1 L AST 14 L ALT 30 Alkaline Phosphatase 122 H Total Protein 7.4 Albumin 3.1 L HOSPITAL COURSE: Date of Admission:06/11/19 24 year old male [place] resident with history of Cerebral Palsy, Developmental Delay, cognitive impairment, functional quadriplegia, seizure disorder, Hx of herpes encephalitis, GERD, Asthma/reactive airway disease, and Hx of aspiration pneumonia, recently discharged from [facility] 06/09 after being treated (with Tamiflu, Zosyn, Steroid) for resp failure sec to Influenza and pseudomonal Pneumonia requiring Intubation/Ventilation, re-presented from [place] with respiratory failure. Upon admission, patient was found to be in acute hypoxic respiratory failure with copious secretion after which he was immediately intubated. He was initially given Gentamicin, Azithromycin and Zosyn in the ED and empirically treated for aspiration pneumonia. Sputum culture was positive for Pseudomonas aeruginosa and pt remained on Zosyn per ID recommendation. Blood culture and urine cultures remained negative. Daily weaning trials were done and pt was subsequently extubated on 06/16/19. On 06/17/19 , pt started to have respiratory distress with more copious secretions and was then re-intubated for airway protection. Weaning trials were re-started and he was then re-extubated on 06/20/19 successfully and placed on high flow oxygen therapy. After this point, his respiratory status much improved and hemodynamics remained stable. Pt was successfully weaned off on high flow oxygen to nasal cannula. His abx regimen was eventually switched to PO Augmentin per ID recommendation. Fevers improved and he remained symptomatic. Pt was subsequently discharged home back to [facility]. Date of Discharge: 06/27/19 Minutes to complete discharge: 36 Discharge Summary Problems reviewed: Yes Reason For Visit: SHORTNESS OF BREATH/SEPSIS Condition: Improved - Instructions Diet, Activity, Other Instructions: You were sent to the hospital because you had a fever and difficulty breathing. During your hospital stay, you were treated for aspiration pneumonia. While you were here, you required intubation and remained in the ICU for several days. You were extubated, but your breathing did not improve so you were intubated a second time. You were seen by the infectious disease doctor and treated with IV antibiotics for aspiration pneumonia. Additionally, you were seen by the county records management officer after which you were subsequently started on steroids. During your hospital stay, you were extubated again and continued on high flow oxygen where your breathing had remained stable. You were monitored for several more days and your symptoms improved. You are now stable for discharge back to your facility. Medications We have made the following changes to your medication regimen: Please START taking Augmentin 600 mg via your G-tube twice a day for 3 more days. Your last dose should be on June 29. Please use the following Prednisone taper: START taking Prednisone 30 mg once a day for 1 more day. Then, START taking Prednisone 20 mg once a day for 3 days (06/29-07/01). Then, START taking Prednisone 10 mg once a day for 3 days (07/02-07/04). You may continue taking the rest of your home medications as directed. Recommendations You will require oxygen via nasal cannula for the time being. Follow Up Please follow up with your primary care physician, Dr. Valentino. Please follow up with your infectious disease doctor, Dr Harrison. Please follow up with your county records management officer, Dr. Yee. If you experience worsening shortness of breath, difficulty breathing, chest pain, persistent/worsening fevers/chills, or other associated symptoms, please proceed to your nearest emergency room immediately. Referrals: Arpan Harrison MD [Staff Physician] - Kush Price MD [Staff Physician] - Irena Guy NP [Primary Care Provider] - 1 Week Disposition: HOME - Home Medications Comprehensive Discharge Medication List: Ambulatory Orders Acyclovir 400 mg GT BID 04/25/17 Baclofen 10 mg GT BID 04/25/17 Clobazam [Onfi -] 10 mg GT HS 04/25/17 Clonazepam 1.5 mg GT TID 04/25/17 Lactobacillus Acidophilus [Acidophilus] 1 each GT HS 04/25/17 Lamotrigine 200 mg GT BID 04/25/17 Multivitamin [Poly-Vitamin] 1 each GT HS 04/25/17 Phenobarbital 48.6 mg GT BID 04/25/17 Ranitidine [Zantac -] 75 mg GT BID #0 tab 03/29/18 Diazepam Rectal Gel [Diastat Rectal Gel -] 7.5 mg [place] PRN PRN 05/23/18 Protein Supplement [Promod] 946 ml GT DAILY 05/23/18 Budesonide [Pulmicort 0.25 mg Nebulizer -] 1 neb IH BID 02/05/19 Fluticasone Prop 0.05% Nasal [Flonase -] 2 spray NS AM 02/05/19 Magnesium Hydrox 2400MG/30Ml [Milk of Magnesia -] 20 ml GT BID 02/05/19 Albuterol 2.5/Ipratropium 0.5 [Duoneb -] 1 neb IH QID PRN #30 neb 02/14/19 Clobazam [Onfi -] 5 mg GT DAILY #30 tablet MDD 5mg /24h 02/14/19 Bacitracin - [Bacitracin Topical Ointment -] 1 applic TP BID 06/01/19 Sodium Chloride/Aloe Vera [[place] Nasal Gel [place]] 22 ml NS BID 06/01/19 Amoxicillin/Potassium Clav [Augmentin ES Suspension] 600 mg GT BID #15 ml predniSONE [Deltasone -] See Taper PO ASDIR #12 tab 06/27/19 This patient is new to me today: No Emergency Visit: Yes ED Registration Date: 06/11/19 Care time: The patient presented to the Emergency Department on the above date and was hospitalized for further evaluation of their emergent condition. Critical Care patient: No - Discharge Referral Referred to [facility] Med P.C.: No ATTENDING PHYSICIAN STATEMENT I saw and evaluated the patient. I reviewed the resident's note and discussed the case with the resident. I agree with the resident's findings and plan as documented. SUBJECTIVE: OBJECTIVE: ASSESSMENT AND PLAN:
[2019-06-27 14:16] VITALS: BP 130/73; PULSE 108; TEMP 98.2
== END 2019-06-27 16:07 | disposition home or self-care (01) | DRG 130 ==
LOC: JER 09:33 → JERBED 12:21 → JICU 16:47 → J4S 06-22 06:25
PROC: 5A1955Z Respiratory Ventilation, Greater than 96 Consecutive Hours (ICD-10-PCS; principal; 2019-06-11)
PROC: 0BH17EZ Insertion of Endotracheal Airway into Trachea, Via Natural or Artificial Opening (ICD-10-PCS; 2019-06-11)
PROC: 3E0G76Z Introduction of Nutritional Substance into Upper GI, Via Natural or Artificial Opening (ICD-10-PCS; 2019-06-11)
PROC: 5A1945Z Respiratory Ventilation, 24-96 Consecutive Hours (ICD-10-PCS; 2019-06-17)
DX: J69.0 Pneumonitis due to inhalation of food and vomit (principal); J96.01 Acute respiratory failure with hypoxia; R53.2 Functional quadriplegia; Z93.1 Gastrostomy status; R13.10 Dysphagia, unspecified; F73 Profound intellectual disabilities; G80.9 Cerebral palsy, unspecified; K21.9 Gastro-esophageal reflux disease without esophagitis; E87.6 Hypokalemia; G40.909 Epilepsy, unspecified, not intractable, without status epilepticus; R62.50 Unspecified lack of expected normal physiological development in childhood; J45.909 Unspecified asthma, uncomplicated; R74.0 Nonspecific elevation of levels of transaminase and lactic acid dehydrogenase [LDH]; D64.9 Anemia, unspecified; R31.9 Hematuria, unspecified; E27.9 Disorder of adrenal gland, unspecified; J98.11 Atelectasis; K13.0 Diseases of lips; D75.89 Other specified diseases of blood and blood-forming organs
CPT/HCPCS: 31500; 36415; 36600; 71045-TC-FY; 71250-TC; 80053; 81003; 82375; 82607; 82746; 82803; 82962; 83050; 83605; 83735; 84100; 84443; 84484; 85025; 85027; 85610; 85730; 87040; 87070; 87081; 87086; 87186; 87205; 87899; 93005; 93010; 94002; 94640; 94761; 99285-25; J0131; J0475; J1644; J7030

== ENCOUNTER 2019-11-22 11:35 | Inpatient (IN) | payer OTHER ==
--- NOTE | 2019-11-22 13:51 | PDOC ---
Documentation entered by Rosalinda Samaniego SCRIBE, acting as scribe for Rupali Conde MD. Rupali Conde MD: This documentation has been prepared by the Danette turner Xhesika, SCRIBE, under my direction and personally reviewed by me in its entirety. I confirm that the documentation accurately reflects all work, treatment, procedures, and medical decision making performed by me. Attending Attestation - Resident Resident Name: Harvey Martinez - ED Attending Attestation I have performed the following: I have examined & evaluated the patient, The case was reviewed & discussed with the resident, I agree w/resident's findings & plan, Exceptions are as noted - HPI HPI: 11/22/19 12:16 The patient is a 24 year old male with a significant PMH of Cerebral palsy, Epilepsy, asthma, Herpes encephalitis, GERD, and PNA (06/01/2019, requiring intubation and ICU admission) who presents to the emergency department [facility] for SOB. Pt is unable to contribute to further history secondary to severe MR. Jae Boyce records, pt was sating on 88 RA, was given 4L NC and went up to 93. Allergies: NKDA Surgical History: GT placement, left hip pinning, right hip osteotomy Social History: Profound intellectual disabilities PCP: Dr. Valentino - Physicial Exam PE: 11/22/19 12:35 GENERAL: chronically ill-appearing, contracted extremities, no distress, nonverbal, does not interact or make eye contact HEENT: PERRLA, EOMI, dry mucous membranes NECK/BACK: no spinal stepoff or deformity, no hematoma, neck supple CARDIOVASCULAR: regular rate/rhythm, no MGR, strong peripheral pulses, capillary refill 4 seconds, extremities wwp, no edema LUNGS/RESPIRATORY: tachypneic at ~35, decreased breath sounds on the left especially at the bases GI/ABDOMEN: symmetric [id number], normoactive BS, soft, no ttp, no midline pulsatile masses : no CVA tenderness MSK/EXTREMITIES: chronic muscle atrophy, no acute deformity SKIN: lukewarm and dry, no pallor, no jaundice, no rash, no pathologic-appearing bruising, no skin breakdown, no cuts, no lesions NEUROLOGICAL: CN II-XII grossly intact, does not move extremities spontaneously (contracted), no facial droop - Medical Decision Making 11/22/19 18:47 24YOM with h/o CP, epilepsy, asthma, herpes encephalitis, GERD, and PNA w/ ICU admission and intubation, who p/w apparent SOB and hypoxia from his NH. Initial Vital Signs Temp Pulse Resp BP Pulse Ox 97.4 F L 91 H 44 H 95/74 89 L 11/22/19 12:00 11/22/19 12:00 11/22/19 12:00 11/22/19 12:00 11/22/19 12:00 Most likely PNA, also possible bronchitis, viral URI, other viral syndrome, CHF, etc. Other possibilities GI pathology e.g., SBO causing restrictive lung process or metabolic derangement. Will get thorough workup given his VS and chronically ill baseline. Labs as noted below, CT, EKG. Laboratory Tests 11/22/19 11/22/19 11/22/19 12:55 13:53 13:53 WBC RBC Hgb Hct MCV MCH MCHC RDW Plt Count MPV Absolute Neuts (auto) Neutrophils % Lymphocytes % Monocytes % Eosinophils % Basophils % Nucleated RBC % PT with INR 11.70 INR 0.99 PTT (Actin FS) 43.4 H VBG pH POC VBG pCO2 POC VBG pO2 VBG HCO3 VBG O2 Sat (Renzo) VBG Base Excess Sodium Potassium Chloride Carbon Dioxide Anion Gap BUN Creatinine Est GFR (CKD-EPI)AfAm Est GFR (CKD-EPI)NonAf Random Glucose Lactic Acid Calcium Total Bilirubin AST ALT Alkaline Phosphatase Troponin I < 0.02 Total Protein Albumin COVID-19 (JOSEPHINE) Not detected 11/22/19 11/22/19 11/22/19 13:53 13:53 13:53 WBC 13.4 H RBC 5.35 Hgb 17.8 H Hct 53.0 H D MCV 99.2 H MCH 33.4 MCHC 33.6 RDW 15.6 Plt Count 231 MPV 10.7 D Absolute Neuts (auto) 9.7 H Neutrophils % 72.5 D Lymphocytes % 21.5 D Monocytes % 3.8 Eosinophils % 2.0 D Basophils % 0.2 Nucleated RBC % 0 PT with INR INR PTT (Actin FS) VBG pH 7.280 L POC VBG pCO2 64.2 H POC VBG pO2 27.7 L VBG HCO3 29.5 H VBG O2 Sat (Renzo) 43.3 L VBG Base Excess 0.4 Sodium 137 Potassium 4.1 Chloride 100 Carbon Dioxide 28 Anion Gap 9 BUN 18.6 H Creatinine 0.7 Est GFR (CKD-EPI)AfAm 154.17 Est GFR (CKD-EPI)NonAf 133.02 Random Glucose 70 L Lactic Acid Calcium 9.9 Total Bilirubin 0.3 AST 101 H ALT 154 H Alkaline Phosphatase 524 H Troponin I Total Protein 11.1 H Albumin 4.9 COVID-19 (JOSEPHINE) 11/22/19 13:53 WBC RBC Hgb Hct MCV MCH MCHC RDW Plt Count MPV Absolute Neuts (auto) Neutrophils % Lymphocytes % Monocytes % Eosinophils % Basophils % Nucleated RBC % PT with INR INR PTT (Actin FS) VBG pH POC VBG pCO2 POC VBG pO2 VBG HCO3 VBG O2 Sat (Renzo) VBG Base Excess Sodium Potassium Chloride Carbon Dioxide Anion Gap BUN Creatinine Est GFR (CKD-EPI)AfAm Est GFR (CKD-EPI)NonAf Random Glucose Lactic Acid 2.4 H* Calcium Total Bilirubin AST ALT Alkaline Phosphatase Troponin I Total Protein Albumin COVID-19 (JOSEPHINE) A single view of the chest is been submitted. Since the prior study of 06/26/2019, there is progressive abdominal distention but no sign of free air. Distended bowel loops are seen below both hemidiaphragms. There is a weak inspiration, rotation to the left, prominent mediastinum and a mixture of congestive and infiltrative changes which are new since 06/26/2019. Correlation recommended CT/ABDOMEN PELVIS CT W/O CONTR [id number] CT/CHEST CT WITHOUT CONTRAST Shortness of breath. Hypoxia. History of bowel distention on recent x-ray CT scan of the chest, abdomen and pelvis without oral and intravenous contrast. Contiguous axial scans were obtained followed with coronal/ sagittal reconstruction images. Compared to prior CT scan of the chest dated 06/11/[address] scan of the abdomen and pelvis dated 05/23/2018 Motion/breathing artifacts are limiting evaluation of the lung. There is diffuse bilateral interstitial opacities as well as likely bilateral scattered airspace opacities is more prominent on the left lower lobe, posteriorly suggestive of pneumonic infiltrates. No pneumothorax or pleural effusion identified. Included lower neck appears unremarkable. The heart is within normal limits in size. No gross enlarged mediastinal or hilar lymph nodes are identified on this noncontrast exam. The tracheobronchial tree appears unremarkable In the abdomen and pelvis, evaluation of the liver, spleen, pancreas, gallbladder, both adrenal glands and both kidneys appear unremarkable. The stomach is not distended and hence its wall cannot be evaluated on this exam. A gastrostomy tube is present with its tip seen in the gastric fundus. There is diffuse mainly air distention of the colon with a large amount of fecal residue in the mid and distal sigmoid colon consistent with impaction. The distal sigmoid colon measures 7.5 cm in wi dth and the mid sigmoid colon measures approximately 8.2 cm in width. Mild air distention of the small bowel is present likely due to ileus without gross evidence of small bowel obstruction. Normal-appearing terminal ileum and appendix. No gross free air or free fluid in the abdomen pelvis. No gross enlarged lymph nodes are identified. Normal size abdominal aorta down through its bifurcation. There is mild dextroscoliosis of the thoracic spine. Visualized osseous structures appear intact Impression: See discussion above Diffuse bilateral interstitial and mild airspace opacities as well as airspace disease in the left lower lobe suggestive of pneumonia. No gross pneumothorax or pleural effusion identified. Gastrostomy tube tip is in the gastric antrum region Findings consistent with stool impaction in the mid and distal sigmoid colon measuring up to 8.2 cm in diameter with significant air distention of the rest of the colon measuring up to 5 cm in diameter consistent with obstruction. There is also mild air distention of the small bowel likely on the basis of ileus. No free air or free fluid are identified in the abdomen and pelvis Patient to be admitted for stool impaction, ileus, bowel obstruction. Admission procedures completed by Dr. Martinez. Heart Score/ECG Review #1 11/22/19 12:42 Sinus rhythm, rate 93, right axis deviation, RBBB, TWI in III/aVR/V1, no other ST-T changes Discharge - Discharge Information Problems reviewed: Yes Clinical Impression/Diagnosis: Pneumonia, Ileus, Bowel obstruction, Fecal impaction Condition: Guarded - Admission Yes - Follow up/Referral - Patient Discharge Instructions - Post Discharge Activity
[2019-11-22 14:22] LABS: VENOUS BASE EXCESS 0.4 mmol/L (-2-2); VENOUS O2 SATURATION 43.3 % (70-80); VENOUS PCO2 64.2 mmHg (38-52); VENOUS PH 7.28 (7.310-7.410)
[2019-11-22 14:32] LABS: INR 0.99 (0.83-1.09); PROTHROMBIN TIME (PATIENT) 11.7 SEC (9.7-13.0)
[2019-11-22 14:34] LABS: ACTIVATED PTT 43.4 SECONDS (25.2-36.5)
[2019-11-22 14:45] LABS: BASO % 0.2 % (0-2.0); HEMOGLOBIN 17.8 GM/dL (11.7-16.9); LYMPH % 21.5 % (8-40); MCH 33.4 pg (25.7-33.7); MCHC 33.6 g/dl (32.0-35.9); MEAN CELL VOLUME 99.2 fl (80-96); MEAN PLT VOLUME 10.7 fl (7.5-11.1); MONO % 3.8 % (3.8-10.2); NEUT % 72.5 % (42.8-82.8); PLATELET COUNT 231 K/MM3 (134-434); RBC 5.35 M/mm3 (4.00-5.60); RDW 15.6 % (11.9-15.9); WHITE BLOOD COUNT 13.4 K/mm3 (4.0-10.0)
[2019-11-22 14:46] LABS: ALBUMIN 4.9 g/dl (3.4-5.0); BILIRUBIN,TOTAL 0.3 mg/dL (0.2-1); BLOOD UREA NITROGEN 18.6 mg/dL (7-18); CALCIUM 9.9 mg/dL (8.5-10.1); CREATININE 0.7 mg/dL (0.55-1.3); POTASSIUM 4.1 mmol/L (3.5-5.1); TOT PROT 11.1 g/dl (6.4-8.2)
--- NOTE | 2019-11-22 14:54 | PDOC ---
History of Present Illness - General Chief Complaint: Shortness of Breath Stated Complaint: DIFFICULTY BREATHING Time Seen by Provider: 11/22/19 12:15 - History of Present Illness Initial Comments: 11/22/19 15:53 24 M from [facility] with CP, epilepsy, herpes encephalitis, GERD, aspiration pneumonia BIBA for shortness of breath. He was desat down to 88 RA, EMS put him on 4LNC , satted 93%. He was given Duonex x2. At the hospital, he was put on non rebreath 10L , sat at 93%. Patient can't talk. The aid followed him to the hospital provided no useful information. ROS cannot be taken. PMH: stated above PSH: Med: Allergy: none SS: ROS: can't be taken due to patient disability, and he couldn't talk. 11/22/19 18:43 Past History - Medical History Allergies/Adverse Reactions: Allergies Allergy/AdvReac Type Severity Reaction Status Date / Time No Known Allergies Allergy Verified 06/11/19 09:59 Home Medications: Ambulatory Orders Acyclovir 400 mg GT BID 04/25/17 Baclofen 10 mg GT BID 04/25/17 Clobazam [Onfi -] 10 mg GT HS 04/25/17 Clonazepam 1.5 mg GT TID 04/25/17 Lamotrigine 200 mg GT BID 04/25/17 Multivitamin [Poly-Vitamin] 1 each GT HS 04/25/17 Phenobarbital 48.6 mg GT BID 04/25/17 Diazepam Rectal Gel [Diastat Rectal Gel -] 7.5 mg IA PRN PRN 05/23/18 Protein Supplement [Promod] 1,190 ml GT DAILY 05/23/18 Budesonide [Pulmicort 0.25 mg Nebulizer -] 1 neb IH BID 02/05/19 Fluticasone Prop 0.05% Nasal [Flonase -] 2 spray NS AM 02/05/19 Magnesium Hydrox 2400MG/30Ml [Milk of Magnesia -] 20 ml GT BID 02/05/19 Albuterol 2.5/Ipratropium 0.5 [Duoneb -] 1 neb IH QID PRN #30 neb 02/14/19 Sodium Chloride/Aloe Vera [Glen Saline Nasal Gel [place]] 22 ml NS BID 06/01/19 Bisacodyl 10 mg RC PRN PRN 07/14/20 Diphenhydramine [Benadryl Oral Solution -] 25 mg PO Q6H PRN 11/22/19 Famotidine 10 mg PO BID 11/22/19 Lactobacillus Acidophilus [Acidophilus] 1 each PO HS 11/22/19 Simethicone Liquid [Mylicon] 40 mg PO QID PRN 11/22/19 Anemia: No Asthma: Yes Cancer: No Cardiac Disorders: No CVA: No COPD: No CHF: No Dementia: No Diabetes: No GI Disorders: Yes (DYSPHAGIA. CONSTIPATION. GERD. Gtube) Disorders: No HTN: No Hypercholesterolemia: No Liver Disease: No Psychiatric Problems: Yes (MR) Seizures: Yes (EPILEPSY) Thyroid Disease: No - Surgical History Abdominal Surgery: Yes (GT PLACEMENT) Appendectomy: No Cardiac Surgery: No Cholecystectomy: No Lung Surgery: No Neurologic Surgery: No Orthopedic Surgery: Yes (l hip pinning, r hip osteotomy) - Psycho-Social/Smoking History Smoking Status: No Smoking History: Never smoked Have you smoked in the past 12 months: No Number of Cigarettes Smoked Daily: 0 - Substance Abuse Hx (Audit-C & DAST Scrn) How often the patient has a drink containing alcohol: Never Score: In Men: 4 or > Positive; In Women: 3 or > Positive: 0 Screen Result (Pos requires Nsg. Audit-10AR): Negative In the last yr the pt used illegal drug/Rx for NonMed reason: No Score: Yes response is considered Positive: 0 Screen Result (Positive result requires Nsg. DAST-10): Negative *Physical Exam - Vital Signs Last Vital Signs Temp Pulse Resp BP Pulse Ox 97.4 F L 91 H 44 H 95/74 89 L 11/22/19 12:00 11/22/19 12:00 11/22/19 12:00 11/22/19 12:00 11/22/19 12:00 - Physical Exam 11/22/19 16:01 GENERAL: Awake, coughing profusely, emitting gurgling and sounds of congestion. LUNGS: Breath sounds equal, diffuse rhonchi b/l HEART: regular rate and rhythm, normal S1 and S2 without murmur, rub or gallop. ABDOMEN: Soft, nontender, not distended, normoactive bowel sounds, no guarding, no rebound, no masses. No hepatomegaly or splenomegaly. MUSCULOSKELETAL: Normal range of motion at all joints. No bony deformities or tenderness. No CVA tenderness. LOWER EXTREMITIES: 2+ pulses, warm, well-perfused. No calf tenderness. No peripheral edema. NEUROLOGICAL: hx of CP, unable to assess PSYCHIATRIC: at baseline SKIN: Warm, dry, no rashes or lesions noted, ED Treatment Course - LABORATORY CBC & Chemistry Diagram: 11/24/19 08:05 11/24/19 08:05 Medical Decision Making - Medical Decision Making 11/22/19 16:03 Patient was brought here by EMS with limited capacity of communicating. We are doing a sepsis workup on him. CBC, CMP, trop, BC, UA/UC, xray , EKG. Xray revealed dilated loops. Proceeded to CT abdomen scan with contrast. EKG was compared to the previous one. No significant changes. CBC CMP came back with elevated LFT, WBC 13.4, lactate 2.4 . Trop is negative. VBG came back with a metabolic acidosis. CT Scan revealed infiltrate, suggesting pneumonia. Bowel dilated 2/2 to stool impacted up on the sigmoid For the pneumonia, will treat with lexoved. For the conspitation, treat with enema. Admit to [facility]. @18:00 11/22/19 18:03 11/22/19 18:28 Enema was given. 11/22/19 18:48 Dr. Crawford will be the admitting attending. He will be admitted for pneumonia, fecal impaction, and hypoxia. 11/22/19 18:48 11/22/19 19:02 11/22/19 19:57 Sign out was given to the internal medicine team. Talked to Dr. Rebolledo Discharge - Discharge Information Problems reviewed: Yes Clinical Impression/Diagnosis: Pneumonia Condition: Stable - Admission Yes - Follow up/Referral - Patient Discharge Instructions - Post Discharge Activity
[2019-11-22] MEDS ORDERED: LACTATED RINGERS SOLUTION 1000 ML INFUS.BAG IV ONE (14:56)
--- NOTE | 2019-11-22 15:27 | EKG ---
Test Reason : Blood Pressure : / mmHG Vent. Rate : 093 BPM Atrial Rate : 093 BPM P-R Int : 152 ms QRS Dur : 106 ms QT Int : 380 ms P-R-T Axes : 025 106 000 degrees QTc Int : 472 ms NORMAL SINUS RHYTHM RIGHTWARD AXIS INFERIOR-POSTERIOR INFARCT (CITED ON OR BEFORE 26-JUN-2016) ABNORMAL ECG WHEN COMPARED WITH ECG OF 11-JUN-2019 10:32, NO SIGNIFICANT CHANGE WAS FOUND Confirmed by MD NUR MOYSES ([id number]) on 11/22/2019 3:27:34 PM Referred By: Confirmed By:WARNER NUR MD
[2019-11-22] MEDS ORDERED: SODIUM PHOSPHATE/NA BIPHOS 133 ML ENEMA PR ONE ×2 (17:39→22:16)
[2019-11-22 20:33] LABS: PH,URINE 8.5 (5.0-8.0); URINE APPEARANCE CLEAR; URINE BILIRUBIN NEGATIVE (NEGATIVE); URINE COLOR YELLOW; URINE GLUCOSE (UA) NEGATIVE (NEGATIVE); URINE KETONE NEGATIVE (NEGATIVE); URINE LEUK ESTERASE NEGATIVE (NEGATIVE); URINE NITRITE NEGATIVE (NEGATIVE); URINE PROTEIN NEGATIVE (NEGATIVE); URINE UROBILINOGEN 0.2 mg/dL (0.2-1.0)
[2019-11-22] MEDS ORDERED: ENOXAPARIN NA (PORCINE) 40 MG/0.4 ML DISP.SYRIN SQ SCH (21:00)
[2019-11-22] MEDS ORDERED: LACTATED RINGERS SOLUTION 1,000 ML IV SCH (21:00)
--- NOTE | 2019-11-22 21:01 | HP ---
<Chetan Rebolledo - Last Filed: 11/23/19 03:31> CHIEF COMPLAINT: Presents from [facility] facility with hypoxia desat @ 88% room air PCP: HISTORY OF PRESENT ILLNESS: Baljinder Lanier is a 24 Y Male with a PMH of Cerebral Palsy, epilespsy, herpes encephalitis, GERD, Aspiration pneumonia, Dysphagia s/p G-tube, presents to ED from [facility] facility with hypoxia desaturating @ 88% on Room air. EMS stated the patient on 4LNC and Duoneb x 2, which improved his sat to 93%. In ED he was place on a non-rebreather with sat @ 98%. Patient is non verbal and not able to provide details. Previous Admission: 06/01/19-06/09/19: Patient presented to ED with non productive cough + short of breath. His temperature was recorded at 100.2 F and HR of 110.While in the ER, he suddenly decompensated likely due to aspiration with RR in 40s, was subsequently intubated and placed on Fentanyl/Propofol drip. CXR and CT showed left basal consolidation. Completed 5 day course of Tamiflu and course of zosyn for PNA. extubated on 06/07. Patient was discharged back to [facility] on a steroid taper (40mg x2days, 20mg x2days, 10mg x2days). 06/11/19-06/27/19: Re-presented from [facility] with respiratory failure. Upon admission, patient was found to be in acute hypoxic respiratory failure with co pious secretion requiring intubation. Sputum culture was positive for Pseudomonas aeruginosa and pt remained on Zosyn per ID recommendation. extubated on 06/20/19. Pt was successfully weaned off on high flow oxygen to nasal cannula. His abx regimen was eventually switched to PO Augmentin per ID recommendation. Pt was subsequently discharged home back to [facility]. ED course: patient was laying in his bed in a position with bouts of severe coughing, grunting and increased secretions. Upon arrival Patient met criteria for sepsis with v/s P98, RR 50 and WBC of 13.4. Patient was on a non- rebreather sat @ 98%. Imaging: CXR revealed weak inspiration w/prominent mediastinum and a mixture of congestive and infiltrative changes. Progressive abdominal distention w/o free air. Distended bowel loops below both hemidiaphragms. Chest CT- Diffuse b/l intersitial and mild airspace opacities as well as air space disease in LLL, evidence for pneumonia. CT abd/pelv- Stool impaction in mid and distal sigmoid colon. Mild air distention of small bowel, evidence for ileus. In ED patient was given Levaquin 750mg, LR 1000ml, and a fleet enema. ER course was notable for: (1) LAC ACID: 2.4 (2) WBC 13.4 (3) Elevated LFTs Recent Travel: Unable to obtain PAST MEDICAL HISTORY: Unable to obtain PAST SURGICAL HISTORY: Unable to obtain Social History: Unable to obtain Smoking: Alcohol: Drugs: Allergies No Known Allergies Allergy (Verified 06/11/19 09:59) HOME MEDICATIONS: Home Medications Medication Instructions Recorded Acyclovir 400 mg GT BID 04/25/17 Baclofen 10 mg GT BID 04/25/17 Clobazam [Onfi -] 10 mg GT HS 04/25/17 Clonazepam 1.5 mg GT TID 04/25/17 Lamotrigine 200 mg GT BID 04/25/17 Multivitamin [Poly-Vitamin] 1 each GT HS 04/25/17 Phenobarbital 48.6 mg GT BID 04/25/17 Diazepam Rectal Gel [Diastat 7.5 mg GA PRN PRN 05/23/18 Rectal Gel -] Protein Supplement [Promod] 1,190 ml GT DAILY 05/23/18 Budesonide [Pulmicort 0.25 mg 1 neb IH BID 02/05/19 Nebulizer -] Fluticasone Prop 0.05% Nasal 2 spray NS AM 02/05/19 [Flonase -] Magnesium Hydrox 2400MG/30Ml [Milk 20 ml GT BID 02/05/19 of Magnesia -] Albuterol 2.5/Ipratropium 0.5 1 neb IH QID PRN #30 neb 02/14/19 [Duoneb -] Sodium Chloride/Aloe Vera [Lawler 22 ml NS BID 06/01/19 Saline Nasal Gel Herculaneum] Bisacodyl 10 mg RC PRN PRN 11/22/19 Diphenhydramine [Benadryl Oral 25 mg PO Q6H PRN 11/22/19 Solution -] Famotidine 10 mg PO BID 11/22/19 Lactobacillus Acidophilus 1 each PO HS 11/22/19 [Acidophilus] Simethicone Liquid [Mylicon] 40 mg PO QID PRN 11/22/19 REVIEW OF SYSTEMS: unable to obtain PHYSICAL EXAMINATION Vital Signs - 24 hr 11/22/19 11/22/19 11/22/19 12:00 13:27 14:13 Temperature 97.6 F Pulse Rate 91 H Pulse Rate [ 85 91 H Apical] Respiratory 44 H 34 H 43 H Rate Blood Pressure 95/74 Blood Pressure 96/85 103/50 L [Right Arm] O2 Sat by Pulse 93 L 100 96 Oximetry (%) 11/22/19 11/22/19 17:21 18:52 Temperature 97.2 F L Pulse Rate Pulse Rate [ 86 98 H Apical] Respiratory 49 H 50 H Rate Blood Pressure Blood Pressure 98/44 L 103/67 [Right Arm] O2 Sat by Pulse 98 98 Oximetry (%) GENERAL: in acute distress HEAD: Normal with no signs of trauma. EYES: subconjuctival hemorrhage. EARS, NOSE, THROAT: increased Secretions from nose and mouth. NECK: supple without lymphadenopathy, JVD, or masses. LUNGS: Breath sounds are difficult to hear due to coughing and grunting b/l wheeze in upper and lower lung nascimento HEART: Difficult to auscultate due to coughing and grunting. Regular rate and rhythm, normal S1 and S2 without murmur, rub or gallop. ABDOMEN: Distended, G tube-no erythema, edema, discharge, normal bowel sounds, no guarding, no rebound, no masses. MUSCULOSKELETAL: Contracted in a position. UPPER EXTREMITIES: 2+ pulses, warm, well-perfused. No cyanosis. No peripheral edema. LOWER EXTREMITIES: 2+ pulses, warm, well-perfused. No calf tenderness. No peripheral edema. SKIN: Warm, dry, normal turgor, no rashes or lesions noted Laboratory Results - last 24 hr 11/22/19 11/22/19 11/22/19 13:53 13:53 13:53 WBC 13.4 H RBC 5.35 Hgb 17.8 H Hct 53.0 H D MCV 99.2 H MCH 33.4 MCHC 33.6 RDW 15.6 Plt Count 231 MPV 10.7 D Absolute Neuts (auto) 9.7 H Neutrophils % 72.5 D Lymphocytes % 21.5 D Monocytes % 3.8 Eosinophils % 2.0 D Basophils % 0.2 Nucleated RBC % 0 PT with INR 11.70 INR 0.99 PTT (Actin FS) 43.4 H VBG pH POC VBG pCO2 POC VBG pO2 VBG HCO3 VBG O2 Sat (Renzo) VBG Base Excess Sodium Potassium Chloride Carbon Dioxide Anion Gap BUN Creatinine Est GFR (CKD-EPI)AfAm Est GFR (CKD-EPI)NonAf Random Glucose Lactic Acid Calcium Total Bilirubin AST ALT Alkaline Phosphatase Troponin I < 0.02 Total Protein Albumin Urine Color Urine Appearance Urine pH Ur Specific Warren Urine Protein Urine Glucose (UA) Urine Ketones Urine Blood Urine Nitrite Urine Bilirubin Urine Urobilinogen Ur Leukocyte Esterase 11/22/19 11/22/19 11/22/19 13:53 13:53 13:53 WBC RBC Hgb Hct MCV MCH MCHC RDW Plt Count MPV Absolute Neuts (auto) Neutrophils % Lymphocytes % Monocytes % Eosinophils % Basophils % Nucleated RBC % PT with INR INR PTT (Actin FS) VBG pH 7.280 L POC VBG pCO2 64.2 H POC VBG pO2 27.7 L VBG HCO3 29.5 H VBG O2 Sat (Renzo) 43.3 L VBG Base Excess 0.4 Sodium 137 Potassium 4.1 Chloride 100 Carbon Dioxide 28 Anion Gap 9 BUN 18.6 H Creatinine 0.7 Est GFR (CKD-EPI)AfAm 154.17 Est GFR (CKD-EPI)NonAf 133.02 Random Glucose 70 L Lactic Acid 2.4 H* Calcium 9.9 Total Bilirubin 0.3 AST 101 H ALT 154 H Alkaline Phosphatase 524 H Troponin I Total Protein 11.1 H Albumin 4.9 Urine Color Urine Appearance Urine pH Ur Specific Warren Urine Protein Urine Glucose (UA) Urine Ketones Urine Blood Urine Nitrite Urine Bilirubin Urine Urobilinogen Ur Leukocyte Esterase 11/22/19 20:20 WBC RBC Hgb Hct MCV MCH MCHC RDW Plt Count MPV Absolute Neuts (auto) Neutrophils % Lymphocytes % Monocytes % Eosinophils % Basophils % Nucleated RBC % PT with INR INR PTT (Actin FS) VBG pH POC VBG pCO2 POC VBG pO2 VBG HCO3 VBG O2 Sat (Renzo) VBG Base Excess Sodium Potassium Chloride Carbon Dioxide Anion Gap BUN Creatinine Est GFR (CKD-EPI)AfAm Est GFR (CKD-EPI)NonAf Random Glucose Lactic Acid Calcium Total Bilirubin AST ALT Alkaline Phosphatase Troponin I Total Protein Albumin Urine Color Yellow Urine Appearance Clear Urine pH 8.5 H Ur Specific Warren 1.015 Urine Protein Negative Urine Glucose (UA) Negative Urine Ketones Negative Urine Blood Negative Urine Nitrite Negative Urine Bilirubin Negative Urine Urobilinogen 0.2 Ur Leukocyte Esterase Negative ASSESSMENT/PLAN: 24 Y Male with a PMH of Cerebral Palsy, epilespsy, herpes encephalitis, GERD, Aspiration pneumonia, Dysphagia s/p G-tube, presents to ED from [facility] facility with hypoxia desaturating @ 88% on Room air. Imaging was significant for LLL pneumonia and stool impaction w/ ileus. Patient is admitted to [place] for management of pneumonia. #Hypoxia 2/2 to pnuemonia - Multiple previous admissions with similar episodes - Sputum culture was positive for P. aeruginosa on previous admissions - VBG: pH 7.28, PCO2 64.2, PO2 27.7, HCO3 29.5, O2 sat 43.4 - Patient was given Levaquin 750 mg in ED - We will initiate Vanc + Zosyn to cover for P.aeruginosa and MRSA ([facility]) - continue suctioning - Consulted ID and Pulm for further recs regarding patient care - f/u with sputum culture, blood culture, and urine culture and urine legionella antigen (r/o legionella) - Continue N/S @ 100 - f/u Covid serology - Continue to Trend Lac acid: 2.4 > 5.2> 2.2 - f/u ABG: #Fecal impaction w/ileus - CT and CXR imaging was significant for: Stool impaction, Mild air distention of small bowel, ileus - patient was given Sodium Phosphate(fleet enema) and Colace in the ED - Continue Rectal enemas and Colace - will reevaluate in the morning and if not improving will consult surgery for further recommendations #Transaminitis - AST:101, ALT 154, AKLP 524 - Patient has had elevated liver enzymes upon previous admissions - patient is on Phenobarbital-Hepatotoxic agent - will continue Phenobarb for now, Seizure prevention. Will continue to trend LFTs - f/u with RUQ u/s(bedside) #Polycythemia - Most likely secondary to chronic hypoxia - H/H 17.8/53, continue to trend H/H - Will monitor for resolutions with tx of PNA and and IVF, if not resolved, will order erythropoietin study to evaluate for primary vs secondary causes #Hx of seizures - Currently asymptomatic - Will continue home meds #Hx of herpes encephalitis - Continue acyclovir 400 BID #FEN - N/S @ 100 - continue to monitor Electrolytes, LAC acid, BS and LFTs, and CBC - NPO at this time (G-tube feeding) due to fecal obstruction w/ileus #DVT PPX - Will hold chemical PPX, nurse reports hemoptysis - SCDs #DISPO: - Will continue to monitor patient on MS, Pending ID and Pulm recs ATTENDING PHYSICIAN STATEMENT I saw and evaluated the patient. I reviewed the resident's note and discussed the case with the resident. I agree with the resident's findings and plan as documented. SUBJECTIVE: OBJECTIVE: ASSESSMENT AND PLAN: <Ami Crawford - Last Filed: 11/23/19 06:36> CHIEF COMPLAINT: PCP: HISTORY OF PRESENT ILLNESS: ER course was notable for: (1) (2) (3) Recent Travel: PAST MEDICAL HISTORY: PAST SURGICAL HISTORY: Social History: Smoking: Alcohol: Drugs: Allergies No Known Allergies Allergy (Verified 06/11/19 09:59) HOME MEDICATIONS: Home Medications Medication Instructions Recorded Acyclovir 400 mg GT BID 04/25/17 Baclofen 10 mg GT BID 04/25/17 Clobazam [Onfi -] 10 mg GT HS 04/25/17 Clonazepam 1.5 mg GT TID 04/25/17 Lamotrigine 200 mg GT BID 04/25/17 Multivitamin [Poly-Vitamin] 1 each GT HS 04/25/17 Phenobarbital 48.6 mg GT BID 04/25/17 Diazepam Rectal Gel [Diastat 7.5 mg GA PRN PRN 05/23/18 Rectal Gel -] Protein Supplement [Promod] 1,190 ml GT DAILY 05/23/18 Budesonide [Pulmicort 0.25 mg 1 neb IH BID 02/05/19 Nebulizer -] Fluticasone Prop 0.05% Nasal 2 spray NS AM 02/05/19 [Flonase -] Magnesium Hydrox 2400MG/30Ml [Milk 20 ml GT BID 02/05/19 of Magnesia -] Albuterol 2.5/Ipratropium 0.5 1 neb IH QID PRN #30 neb 02/14/19 [Duoneb -] Sodium Chloride/Aloe Vera [Lawler 22 ml NS BID 06/01/19 Saline Nasal Gel Herculaneum] Bisacodyl 10 mg RC PRN PRN 11/22/19 Diphenhydramine [Benadryl Oral 25 mg PO Q6H PRN 11/22/19 Solution -] Famotidine 10 mg PO BID 11/22/19 Lactobacillus Acidophilus 1 each PO HS 11/22/19 [Acidophilus] Simethicone Liquid [Mylicon] 40 mg PO QID PRN 11/22/19 REVIEW OF SYSTEMS CONSTITUTIONAL: Absent: fever, chills, diaphoresis, generalized weakness, malaise, loss of appetite, weight change HEENT: Absent: rhinorrhea, nasal congestion, throat pain, throat swelling, difficulty swallowing, mouth swelling, ear pain, eye pain, visual changes CARDIOVASCULAR: Absent: chest pain, syncope, palpitations, irregular heart rate, lightheadedness, peripheral edema RESPIRATORY: Absent: cough, shortness of breath, dyspnea with exertion, orthopnea, wheezing, stridor, hemoptysis GASTROINTESTINAL: Absent: abdominal pain, abdominal distension, nausea, vomiting, diarrhea, constipation, melena, hematochezia GENITOURINARY: Absent: dysuria, frequency, urgency, hesitancy, hematuria, flank pain, genital pain MUSCULOSKELETAL: Absent: myalgia, arthralgia, joint swelling, back pain, neck pain SKIN: Absent: rash, itching, pallor HEMATOLOGIC/IMMUNOLOGIC: Absent: easy bleeding, easy bruising, lymphadenopathy, frequent infections ENDOCRINE: Absent: unexplained weight gain, unexplained weight loss, heat intolerance, cold intolerance NEUROLOGIC: Absent: headache, focal weakness or paresthesias, dizziness, unsteady gait, seizure, mental status changes, bladder or bowel incontinence PSYCHIATRIC: Absent: anxiety, depression, suicidal or homicidal ideation, hallucinations. PHYSICAL EXAMINATION Vital Signs - 24 hr 11/22/19 11/22/19 11/22/19 12:00 13:27 14:13 Temperature 97.6 F Pulse Rate 91 H Pulse Rate [ 85 91 H Apical] Respiratory 44 H 34 H 43 H Rate Blood Pressure 95/74 Blood Pressure 96/85 103/50 L [Right Arm] O2 Sat by Pulse 93 L 100 96 Oximetry (%) 11/22/19 11/22/19 11/22/19 17:21 18:52 21:43 Temperature 97.2 F L 99.2 F Pulse Rate Pulse Rate [ 86 98 H 104 H Apical] Respiratory 49 H 50 H 55 H Rate Blood Pressure Blood Pressure 98/44 L 103/67 98/68 [Right Arm] O2 Sat by Pulse 98 98 97 Oximetry (%) 11/22/19 11/22/19 11/23/19 22:48 23:30 01:58 Temperature 97.4 F L 97.5 F L Pulse Rate 95 H 120 H Pulse Rate [ 104 H Apical] Respiratory 44 H 36 H 20 Rate Blood Pressure 115/86 120/86 Blood Pressure 104/59 L [Right Arm] O2 Sat by Pulse 100 97 Oximetry (%) GENERAL: Awake, alert, and fully oriented, in no acute distress. HEAD: Normal with no signs of trauma. EYES: Pupils equal, round and reactive to light, extraocular movements intact, sclera anicteric, conjunctiva clear. No lid lag. EARS, NOSE, THROAT: Ears normal, nares patent, oropharynx clear without exudates. Moist mucous membranes. NECK: Normal range of motion, supple without lymphadenopathy, JVD, or masses. LUNGS: Breath sounds equal, clear to auscultation bilaterally. No wheezes, and no crackles. No accessory muscle use. HEART: Regular rate and rhythm, normal S1 and S2 without murmur, rub or gallop. ABDOMEN: Soft, nontender, not distended, normoactive bowel sounds, no guarding, no rebound, no masses. No hepatomegaly or splenomegaly. MUSCULOSKELETAL: Normal range of motion at all joints. No bony deformities or tenderness. No CVA tenderness. UPPER EXTREMITIES: 2+ pulses, warm, well-perfused. No cyanosis. No clubbing. No peripheral edema. LOWER EXTREMITIES: 2+ pulses, warm, well-perfused. No calf tenderness. No peripheral edema. NEUROLOGICAL: Cranial nerves II-XII intact. Normal speech. Normal gait. PSYCHIATRIC: Cooperative. Good eye contact. Appropriate mood and affect. SKIN: Warm, dry, normal turgor, no rashes or lesions noted, normal capillary refill. Laboratory Results - last 24 hr 11/22/19 11/22/19 11/22/19 13:53 13:53 13:53 WBC 13.4 H RBC 5.35 Hgb 17.8 H Hct 53.0 H D MCV 99.2 H MCH 33.4 MCHC 33.6 RDW 15.6 Plt Count 231 MPV 10.7 D Absolute Neuts (auto) 9.7 H Neutrophils % 72.5 D Lymphocytes % 21.5 D Monocytes % 3.8 Eosinophils % 2.0 D Basophils % 0.2 Nucleated RBC % 0 PT with INR 11.70 INR 0.99 PTT (Actin FS) 43.4 H VBG pH POC VBG pCO2 POC VBG pO2 VBG HCO3 VBG O2 Sat (Renzo) VBG Base Excess Sodium Potassium Chloride Carbon Dioxide Anion Gap BUN Creatinine Est GFR (CKD-EPI)AfAm Est GFR (CKD-EPI)NonAf Random Glucose Lactic Acid Calcium Total Bilirubin AST ALT Alkaline Phosphatase Troponin I < 0.02 Total Protein Albumin Urine Color Urine Appearance Urine pH Ur Specific Warren Urine Protein Urine Glucose (UA) Urine Ketones Urine Blood Urine Nitrite Urine Bilirubin Urine Urobilinogen Ur Leukocyte Esterase 11/22/19 11/22/19 11/22/19 13:53 13:53 13:53 WBC RBC Hgb Hct MCV MCH MCHC RDW Plt Count MPV Absolute Neuts (auto) Neutrophils % Lymphocytes % Monocytes % Eosinophils % Basophils % Nucleated RBC % PT with INR INR PTT (Actin FS) VBG pH 7.280 L POC VBG pCO2 64.2 H POC VBG pO2 27.7 L VBG HCO3 29.5 H VBG O2 Sat (Renzo) 43.3 L VBG Base Excess 0.4 Sodium 137 Potassium 4.1 Chloride 100 Carbon Dioxide 28 Anion Gap 9 BUN 18.6 H Creatinine 0.7 Est GFR (CKD-EPI)AfAm 154.17 Est GFR (CKD-EPI)NonAf 133.02 Random Glucose 70 L Lactic Acid 2.4 H* Calcium 9.9 Total Bilirubin 0.3 AST 101 H ALT 154 H Alkaline Phosphatase 524 H Troponin I Total Protein 11.1 H Albumin 4.9 Urine Color Urine Appearance Urine pH Ur Specific Warren Urine Protein Urine Glucose (UA) Urine Ketones Urine Blood Urine Nitrite Urine Bilirubin Urine Urobilinogen Ur Leukocyte Esterase 11/22/19 11/22/19 11/23/19 20:20 21:30 00:41 WBC RBC Hgb Hct MCV MCH MCHC RDW Plt Count MPV Absolute Neuts (auto) Neutrophils % Lymphocytes % Monocytes % Eosinophils % Basophils % Nucleated RBC % PT with INR INR PTT (Actin FS) VBG pH POC VBG pCO2 POC VBG pO2 VBG HCO3 VBG O2 Sat (Renzo) VBG Base Excess Sodium Potassium Chloride Carbon Dioxide Anion Gap BUN Creatinine Est GFR (CKD-EPI)AfAm Est GFR (CKD-EPI)NonAf Random Glucose Lactic Acid 5.2 H* 2.2 H* Calcium Total Bilirubin AST ALT Alkaline Phosphatase Troponin I Total Protein Albumin Urine Color Yellow Urine Appearance Clear Urine pH 8.5 H Ur Specific Warren 1.015 Urine Protein Negative Urine Glucose (UA) Negative Urine Ketones Negative Urine Blood Negative Urine Nitrite Negative Urine Bilirubin Negative Urine Urobilinogen 0.2 Ur Leukocyte Esterase Negative ASSESSMENT/PLAN: Visit type - Emergency Visit Emergency Visit: Yes ED Registration Date: 11/22/19 Care time: The patient presented to the Emergency Department on the above date and was hospitalized for further evaluation of their emergent condition. - New Patient This patient is new to me today: Yes Date on this admission: 11/23/19 - Critical Care Critical Care patient: No ATTENDING PHYSICIAN STATEMENT I saw and evaluated the patient. I reviewed the resident's note and discussed the case with the resident. I agree with the resident's findings and plan as documented. SUBJECTIVE: OBJECTIVE: Patient was seen and evaluated ASSESSMENT AND PLAN: 24 Year old Male with a PMHx notable for Cerebral Palsy, epilespsy, herpes encephalitis, GERD, Aspiration pneumonia, Dysphagia s/p G-tube, who presents to ED from [facility] facility with hypoxia desaturating @ 88% on Room air. Imaging was significant for LLL pneumonia and stool impaction w/ ileus. Patient is admitted to Medical Surgical unit for management of pneumonia. # Acute Hypoxic Respiratory failure - Likely 2/2 to pnuemonia - continue with O2 supplementation - Broad spectrum antibiotic therapy: Vanco/zosyn - trend lactic acid - ID consulted # Fecal impaction with ileus - CT and CXR imaging was significant for: Stool impaction, ileus - patient was given Sodium Phosphate(fleet enema) and Colace in the ED - Continue Rectal enemas and Colace - For now holding tube feeds - GI consult in AM
[2019-11-22] MEDS ORDERED: ENOXAPARIN NA (PORCINE) 40 MG/0.4 ML DISP.SYRIN SQ ONE (21:13)
[2019-11-22] MEDS ORDERED: DOCUSATE SODIUM 100 MG CAPSULE (FP) PO ONE (21:13)
[2019-11-22] MEDS ORDERED: DOCUSATE SODIUM 100 MG CAPSULE (FP) PO SCH (22:00)
[2019-11-22] MEDS ORDERED: VANCOMYCIN 1,000 MG in DEXTROSE 5%-WATER - 250 ML IVPB SCH (22:15)
[2019-11-22] MEDS ORDERED: diphenhydrAMINE HCL 12.5 MG/5 ML UNIT-DOSE CUPS PO PRN (22:19)
[2019-11-22] MEDS ORDERED: diazePAM RECTAL GEL 10 MG KIT (PRE-CALIBRATED) RC PRN (22:19)
[2019-11-22] MEDS ORDERED: BISACODYL 10 MG SUPP.RECT RC PRN (22:19)
[2019-11-22] MEDS ORDERED: VANCOMYCIN 1 GRAM (PRE-DOCKED) 1,000 MG/250 ML BAG IVPB ONE ×2 (22:30→22:31)
[2019-11-22] MEDS ORDERED: diphenhydrAMINE HCL 12.5 MG/5 ML UNIT-DOSE CUPS GT PRN (22:43)
[2019-11-22] MEDS ORDERED: SODIUM CHLORIDE 1,000 ML IV STA (22:54)
[2019-11-23] MEDS: PIPERACILLIN/TAZOB 3.375 GM 3.375 GM in DEXTROSE 5%-WATER - 50 ML IVPB SCH ×3 (00:50→14:18)
[2019-11-23] MEDS: SODIUM CHLORIDE 1,000 ML IV SCH ×2 (00:51→22:56)
[2019-11-23] MEDS ORDERED: PIPERACILLIN/TAZOB 3.375 GM 3.375 GM in DEXTROSE 5%-WATER - 50 ML IVPB SCH (02:00)
[2019-11-23 03:36] LABS: ARTERIAL BLD GAS O2 SATURATION 99.6 mmHg (95-98); ARTERIAL BLOOD GAS PO2 264.2 mmHg (80-100); ARTERIAL BLOOD GAS pH 7.332 (7.350-7.450)
[2019-11-23] MEDS ORDERED: SODIUM CHLORIDE 250 ML IV STA (03:57)
[2019-11-23] MEDS ORDERED: CLONAZEPAM 1.5 MG GT SCH (06:00)
[2019-11-23] MEDS ORDERED: PIPERACILLIN/TAZOBACTAM 3.375 GM VIAL IVPB ONE ×2 (06:00→14:14)
[2019-11-23] MEDS ORDERED: DEXTROSE 5%-WATER - 50 ML IVPB ONE ×2 (06:00→14:15)
[2019-11-23] MEDS: clonazePAM 0.5 MG TABLET GT SCH ×3 (06:36→23:00)
[2019-11-23 07:20] LABS: BASO % 0.3 % (0-2.0); EOS % 0.1 % (0-4.5); HEMATOCRIT 44.4 % (35.4-49); HEMOGLOBIN 14.8 GM/dL (11.7-16.9); LYMPH % 7.2 % (8-40); MCH 32.8 pg (25.7-33.7); MCHC 33.4 g/dl (32.0-35.9); MEAN CELL VOLUME 98.2 fl (80-96); MEAN PLT VOLUME 10.5 fl (7.5-11.1); MONO % 5.3 % (3.8-10.2); NEUT % 87.1 % (42.8-82.8); PLATELET COUNT 183 K/MM3 (134-434); RBC 4.52 M/mm3 (4.00-5.60); RDW 15.4 % (11.9-15.9); WHITE BLOOD COUNT 15.6 K/mm3 (4.0-10.0)
[2019-11-23 07:48] LABS: ALBUMIN 3.5 g/dl (3.4-5.0); BILIRUBIN,TOTAL 0.4 mg/dL (0.2-1); BLOOD UREA NITROGEN 15.4 mg/dL (7-18); CALCIUM 9.2 mg/dL (8.5-10.1); CREATININE 0.6 mg/dL (0.55-1.3); MAGNESIUM 1.9 mg/dL (1.8-2.4); POTASSIUM 4.7 mmol/L (3.5-5.1)
[2019-11-23 07:50] LABS: TOT PROT 8.2 g/dl (6.4-8.2)
[2019-11-23] MEDS ORDERED: ACYCLOVIR 400 MG GT SCH (10:00)
[2019-11-23] MEDS ORDERED: PHENOBARBITAL GT SCH (10:00)
[2019-11-23] MEDS: BACLOFEN 10 MG TABLET (FP) GT SCH ×2 (10:32→23:03)
[2019-11-23] MEDS: DOCUSATE NA 100 MG/10 ML UNIT-DOSE CUPS GT SCH ×2 (10:32→23:01)
[2019-11-23] MEDS: lamoTRIgine 100 MG TABLET PO SCH ×2 (10:33→23:00)
[2019-11-23] MEDS: ACYCLOVIR 200 MG/5 ML LIQUID GT SCH ×2 (10:33→23:08)
--- NOTE | 2019-11-23 10:43 | PN ---
Progress Note (short form) - Note Progress Note: ID consult dictated IMP/RECCD 24 yo man admitted from [facility] with Hypoxia noted to have bilateral infiltrates and stool impaction agree with vanco /zosy for aspiration- check naresfor mrsa urinary antigens f/u blood cultures fecal impaction multiple disabilities abnl lfts
[2019-11-23] MEDS: SENNOSIDES 8.8 MG/5 ML BULK BOTTLE PO SCH ×2 (12:15→23:07)
[2019-11-23] MEDS: SODIUM CHLORIDE NASAL SPRAY 44 ML BOTTLE NS SCH ×2 (12:16→23:07)
[2019-11-23] MEDS: PHENobarbital 20 MG/5 ML UNIT-DOSE CUP GT SCH ×2 (12:26→22:58)
--- NOTE | 2019-11-23 13:42 | CON.PULM ---
Consult Consult Specialty:: PULMONARY Referred by:: Dr Heck Reason for Consultation:: r/o pneumonia - History of Present Illness Chief Complaint: hypoxia History of Present Illness: 24yo male with h/o cerebral palsy, mental retardation, seizure disorder, GERD, multiple admissions for recurrent aspiration pneumonia who was transferred from [place] after being found hypoxic to 88% on room air. Pt unable to provide further history at this time. No fevers recorded but CXR showing bilateral infiltrates confirmed on CT chest. - History Source History Provided By: Medical Record Limitations to Obtaining History: Clinical Condition - Past Medical History SHIP WIRER: Yes: Other (Mental retardation, cerebral palsy) Pulmonary: Yes: Asthma, Pneumonia Gastrointestinal: Yes: Other (gastrostomy) Infectious Disease: Yes: Herpes Zoster Musculoskeletal: Yes: Other (Functional Qaudraplegic) - Alcohol/Substance Use Hx Alcohol Use: No - Smoking History Smoking history: Never smoked Have you smoked in the past 12 months: No Aproximately how many cigarettes per day: 0 - Social History Usual Living Arrangement: [facility] ADL: Support Services History of Recent Travel: No Home Medications - Allergies Allergies/Adverse Reactions: Allergies Allergy/AdvReac Type Severity Reaction Status Date / Time No Known Allergies Allergy Verified 06/11/19 09:59 - Home Medications Home Medications: Ambulatory Orders Acyclovir 400 mg GT BID 04/25/17 Baclofen 10 mg GT BID 04/25/17 Clobazam [Onfi -] 10 mg GT HS 04/25/17 Clonazepam 1.5 mg GT TID 04/25/17 Lamotrigine 200 mg GT BID 04/25/17 Multivitamin [Poly-Vitamin] 1 each GT HS 04/25/17 Phenobarbital 48.6 mg GT BID 04/25/17 Diazepam Rectal Gel [Diastat Rectal Gel -] 7.5 mg NM PRN PRN 05/23/18 Protein Supplement [Promod] 1,190 ml GT DAILY 05/23/18 Budesonide [Pulmicort 0.25 mg Nebulizer -] 1 neb IH BID 02/05/19 Fluticasone Prop 0.05% Nasal [Flonase -] 2 spray NS AM 02/05/19 Magnesium Hydrox 2400MG/30Ml [Milk of Magnesia -] 20 ml GT BID 02/05/19 Albuterol 2.5/Ipratropium 0.5 [Duoneb -] 1 neb IH QID PRN #30 neb 02/14/19 Sodium Chloride/Aloe Vera [[place] Saline Nasal Gel Trail] 22 ml NS BID 06/01/19 Bisacodyl 10 mg RC PRN PRN 11/22/19 Diphenhydramine [Benadryl Oral Solution -] 25 mg PO Q6H PRN 11/22/19 Famotidine 10 mg PO BID 11/22/19 Lactobacillus Acidophilus [Acidophilus] 1 each PO HS 11/22/19 Simethicone Liquid [Mylicon] 40 mg PO QID PRN 11/22/19 Review of Systems Unable to obtain ROS, reason: pt nonverbal Physical Exam Vital Sings: Vital Signs Temperature 97.8 F 11/23/19 10:00 Pulse Rate 103 H 11/23/19 10:00 Respiratory Rate 22 H 11/23/19 10:00 Blood Pressure 104/67 11/23/19 10:00 O2 Sat by Pulse Oximetry (%) 92 L 11/23/19 10:00 Constitutional: Yes: Mild Distress Eyes: Yes: Conjunctiva Clear, EOM Intact HENT: Yes: Atraumatic, Normocephalic Neck: Yes: Supple, Trachea Midline Cardiovascular: Yes: Regular Rate and Rhythm Respiratory: Yes: Rhonchi ...Clubbing: No Gastrointestinal: Yes: Normal Bowel Sounds, Soft. No: Tenderness Edema: No Neurological: Yes: Alert Labs: CBC, BMP 11/23/19 06:50 11/23/19 06:50 ABG Results ABG pH 7.332 (7.350-7.450) L 11/23/19 03:15 ABG HCO3 24.4 mmol/L (22-27) 11/23/19 03:15 ABG O2 Sat (Measured) 99.6 mmHg (95-98) H 11/23/19 03:15 ABG O2 Content No Result Required. 11/23/19 03:15 ABG Base Excess -2.0 mmol/L (-2-2) 11/23/19 03:15 Imaging - Results Chest X-ray: Report Reviewed, Image Reviewed Cat Scan: Report Reviewed, Image Reviewed (bilateral infiltrates L>R) Assessment/Plan Acute Hypoxic and Hypercapneic Respiratory Failure Pneumonia likely recurrent aspiration Sepsis Lactic Acidosis Elevated LFTs - antibiotics to cover aspiration - f/u cultures, serologies - O2 to keep SpO2 >90% - inhaled bronchodilators - IVF - trend LFTs - keep HOB >30deg - DVT prophylaxis Thank you for this consult Jah Schmid MD
--- NOTE | 2019-11-23 14:23 | PN ---
Physical Exam: SUBJECTIVE: Patient seen and examined at bedside this morning. Patient admitted overnight due to respiratory distress. OBJECTIVE: Vital Signs Temperature 97.8 F 11/23/19 10:00 Pulse Rate 103 H 11/23/19 10:00 Respiratory Rate 22 H 11/23/19 10:00 Blood Pressure 104/67 11/23/19 10:00 O2 Sat by Pulse Oximetry (%) 92 L 11/23/19 10:00 GENERAL: The patient is awake, alert, nonverbal, on nonrebreather NECK: supple. EARS, NOSE, THROAT:ears normal, nares patent, oropharynx clear. copious secre tions noted. NECK: Normal range of motion, supple without lymphadenopathy, JVD, or masses. LUNGS: Coarse breath sounds bilaterally HEART: Regular rate and rhythm, normal S1 and S2 without murmur, rub or gallop. ABDOMEN: Soft, nontender, not distended, normoactive bowel sounds JUDY: no hemorrhoids, no masses, normal rectal tone, no stool on rectal vault LOWER EXTREMITIES: 2+ pulses, warm, well-perfused. No peripheral edema. SKIN: Warm, dry, normal turgor Laboratory Results - last 24 hr 11/22/19 11/22/19 11/22/19 13:53 13:53 13:53 WBC 13.4 H RBC 5.35 Hgb 17.8 H Hct 53.0 H D MCV 99.2 H MCH 33.4 MCHC 33.6 RDW 15.6 Plt Count 231 MPV 10.7 D Absolute Neuts (auto) 9.7 H Neutrophils % 72.5 D Lymphocytes % 21.5 D Monocytes % 3.8 Eosinophils % 2.0 D Basophils % 0.2 Nucleated RBC % 0 PT with INR 11.70 INR 0.99 PTT (Actin FS) 43.4 H Anticoagulation Therapy Puncture Site Patient Temperature ABG pH ABG pCO2 ABG pO2 ABG HCO3 ABG O2 Sat (Measured) ABG O2 Content ABG Base Excess [place] Test VBG pH POC VBG pCO2 POC VBG pO2 VBG HCO3 VBG O2 Sat (Renzo) VBG Base Excess Patient On Oxygen O2 Delivery Device Oxygen Flow Rate Vent Mode Vent Rate Mechanical Rate PEEP Pressure Support Vent Sodium Potassium Chloride Carbon Dioxide Anion Gap BUN Creatinine Est GFR (CKD-EPI)AfAm Est GFR (CKD-EPI)NonAf Random Glucose Lactic Acid Calcium Phosphorus Magnesium Total Bilirubin AST ALT Alkaline Phosphatase Troponin I < 0.02 Total Protein Albumin Urine Color Urine Appearance Urine pH Ur Specific [place] Urine Protein Urine Glucose (UA) Urine Ketones Urine Blood Urine Nitrite Urine Bilirubin Urine Urobilinogen Ur Leukocyte Esterase 11/22/19 11/22/19 11/22/19 13:53 13:53 13:53 WBC RBC Hgb Hct MCV MCH MCHC RDW Plt Count MPV Absolute Neuts (auto) Neutrophils % Lymphocytes % Monocytes % Eosinophils % Basophils % Nucleated RBC % PT with INR INR PTT (Actin FS) Anticoagulation Therapy Puncture Site Patient Temperature ABG pH ABG pCO2 ABG pO2 ABG HCO3 ABG O2 Sat (Measured) ABG O2 Content ABG Base Excess Kaushal Test VBG pH 7.280 L POC VBG pCO2 64.2 H POC VBG pO2 27.7 L VBG HCO3 29.5 H VBG O2 Sat (Renzo) 43.3 L VBG Base Excess 0.4 Patient On Oxygen O2 Delivery Device Oxygen Flow Rate Vent Mode Vent Rate Mechanical Rate PEEP Pressure Support Vent Sodium 137 Potassium 4.1 Chloride 100 Carbon Dioxide 28 Anion Gap 9 BUN 18.6 H Creatinine 0.7 Est GFR (CKD-EPI)AfAm 154.17 Est GFR (CKD-EPI)NonAf 133.02 Random Glucose 70 L Lactic Acid 2.4 H* Calcium 9.9 Phosphorus Magnesium Total Bilirubin 0.3 AST 101 H ALT 154 H Alkaline Phosphatase 524 H Troponin I Total Protein 11.1 H Albumin 4.9 Urine Color Urine Appearance Urine pH Ur Specific [place] Urine Protein Urine Glucose (UA) Urine Ketones Urine Blood Urine Nitrite Urine Bilirubin Urine Urobilinogen Ur Leukocyte Esterase 11/22/19 11/22/19 11/23/19 20:20 21:30 00:41 WBC RBC Hgb Hct MCV MCH MCHC RDW Plt Count MPV Absolute Neuts (auto) Neutrophils % Lymphocytes % Monocytes % Eosinophils % Basophils % Nucleated RBC % PT with INR INR PTT (Actin FS) Anticoagulation Therapy Puncture Site Patient Temperature ABG pH ABG pCO2 ABG pO2 ABG HCO3 ABG O2 Sat (Measured) ABG O2 Content ABG Base Excess [place]aushal Test VBG pH POC VBG pCO2 POC VBG pO2 VBG HCO3 VBG O2 Sat (Renzo) VBG Base Excess Patient On Oxygen O2 Delivery Device Oxygen Flow Rate Vent Mode Vent Rate Mechanical Rate PEEP Pressure Support Vent Sodium Potassium Chloride Carbon Dioxide Anion Gap BUN Creatinine Est GFR (CKD-EPI)AfAm Est GFR (CKD-EPI)NonAf Random Glucose Lactic Acid 5.2 H* 2.2 H* Calcium Phosphorus Magnesium Total Bilirubin AST ALT Alkaline Phosphatase Troponin I Total Protein Albumin Urine Color Yellow Urine Appearance Clear Urine pH 8.5 H Ur Specific [place] 1.015 Urine Protein Negative Urine Glucose (UA) Negative Urine Ketones Negative Urine Blood Negative Urine Nitrite Negative Urine Bilirubin Negative Urine Urobilinogen 0.2 Ur Leukocyte Esterase Negative 11/23/19 11/23/19 11/23/19 03:15 06:50 06:50 WBC 15.6 H RBC 4.52 Hgb 14.8 Hct 44.4 D MCV 98.2 H MCH 32.8 MCHC 33.4 RDW 15.4 Plt Count 183 D MPV 10.5 Absolute Neuts (auto) 13.6 H Neutrophils % 87.1 H D Lymphocytes % 7.2 L D Monocytes % 5.3 Eosinophils % 0.1 D Basophils % 0.3 Nucleated RBC % 0 PT with INR INR PTT (Actin FS) Anticoagulation Therapy No Result Required. Puncture Site No Result Required. Patient Temperature No Result Required. ABG pH 7.332 L ABG pCO2 47.10 H ABG pO2 264.2 H ABG HCO3 24.4 ABG O2 Sat (Measured) 99.6 H ABG O2 Content No Result Required. ABG Base Excess -2.0 Kaushal Test No Result Required. VBG pH POC VBG pCO2 POC VBG pO2 VBG HCO3 VBG O2 Sat (Renzo) VBG Base Excess Patient On Oxygen Yes O2 Delivery Device Non rebreather mask Oxygen Flow Rate 100% Vent Mode No Result Required. Vent Rate No Result Required. Mechanical Rate No Result Required. PEEP No Result Required. Pressure Support Vent No Result Required. Sodium 140 Potassium 4.7 Chloride 108 H Carbon Dioxide 23 Anion Gap 10 BUN 15.4 Creatinine 0.6 Est GFR (CKD-EPI)AfAm 164.25 Est GFR (CKD-EPI)NonAf 141.72 Random Glucose 81 Lactic Acid Calcium 9.2 Phosphorus 4.0 Magnesium 1.9 Total Bilirubin 0.4 AST 57 H ALT 97 H Alkaline Phosphatase 380 H Troponin I Total Protein 8.2 Albumin 3.5 Urine Color Urine Appearance Urine pH Ur Specific [place] Urine Protein Urine Glucose (UA) Urine Ketones Urine Blood Urine Nitrite Urine Bilirubin Urine Urobilinogen Ur Leukocyte Esterase 11/23/19 06:50 WBC RBC Hgb Hct MCV MCH MCHC RDW Plt Count MPV Absolute Neuts (auto) Neutrophils % Lymphocytes % Monocytes % Eosinophils % Basophils % Nucleated RBC % PT with INR INR PTT (Actin FS) Anticoagulation Therapy Puncture Site Patient Temperature ABG pH ABG pCO2 ABG pO2 ABG HCO3 ABG O2 Sat (Measured) ABG O2 Content ABG Base Excess Kaushal Test VBG pH POC VBG pCO2 POC VBG pO2 VBG HCO3 VBG O2 Sat (Renzo) VBG Base Excess Patient On Oxygen O2 Delivery Device Oxygen Flow Rate Vent Mode Vent Rate Mechanical Rate PEEP Pressure Support Vent Sodium Potassium Chloride Carbon Dioxide Anion Gap BUN Creatinine Est GFR (CKD-EPI)AfAm Est GFR (CKD-EPI)NonAf Random Glucose Lactic Acid 1.2 Calcium Phosphorus Magnesium Total Bilirubin AST ALT Alkaline Phosphatase Troponin I Total Protein Albumin Urine Color Urine Appearance Urine pH Ur Specific [place] Urine Protein Urine Glucose (UA) Urine Ketones Urine Blood Urine Nitrite Urine Bilirubin Urine Urobilinogen Ur Leukocyte Esterase Active Medications Generic Name Dose Route Start Last Admin Trade Name Freq PRN Reason Stop Dose Admin Acyclovir 400 mg 11/23/19 10:00 11/23/19 10:33 Zovirax Oral Suspension - GT 400 mg BID JORGE Administration Baclofen 10 mg 11/23/19 10:00 11/23/19 10:32 Lioresal - GT 10 mg BID JORGE Administration Bisacodyl 10 mg 11/22/19 22:19 Dulcolax Suppository - RC HS PRN CONSTIPATION Clobazam 10 mg 11/23/19 22:00 Onfi - GT HS JORGE Clonazepam 1.5 mg 11/23/19 06:00 11/23/19 06:36 Klonopin - GT 1.5 mg TID JORGE Administration Diazepam 7.5 mg 11/22/19 22:19 Diastat Rectal Gel - RC PRN PRN <Seizures> Diphenhydramine HCl 25 mg 11/22/19 22:43 Benadryl Oral Solution - GT Q6H PRN ALLERGIES Docusate Sodium 100 mg 11/22/19 22:42 11/23/19 10:32 Colace Liquid - GT 100 mg BID JORGE Administration Vancomycin HCl 1,000 mg/ 250 mls @ 200 mls/hr 11/22/19 22:15 Dextrose IVPB Q24H JORGE Protocol Sodium Chloride 1,000 mls @ 100 mls/hr 11/22/19 23:30 11/23/19 00:51 Normal Saline - IV 100 mls/hr ASDIR JORGE Administration Piperacillin Sod/Tazobactam 50 mls @ 100 mls/hr 11/22/19 23:18 11/23/19 06:37 Sod 3.375 gm/ Dextrose IVPB 11/23/19 15:47 100 mls/hr Q8H JORGE Administration Piperacillin Sod/Tazobactam 50 mls @ 100 mls/hr 11/23/19 02:00 Sod 3.375 gm/ Dextrose IVPB Q8H-IV JORGE Protocol Lactobacillus Acidophilus 1 tab 11/23/19 22:00 Bacid - PO HS JORGE Lamotrigine 200 mg 11/23/19 10:00 11/23/19 10:33 Lamictal - PO 200 mg BID JORGE Administration Phenobarbital 45 mg 11/23/19 10:00 11/23/19 12:26 Phenobarbital Liquid - GT 45 mg BID JORGE Administration Senna 8.8 mg 11/23/19 10:00 11/23/19 12:15 Senna Oral Solution - PO 5 ml BID JORGE Administration Sodium Chloride 2 spray 11/23/19 10:00 11/23/19 12:16 [place] Nasal [place] - NS 2 spray BID JORGE Administration ASSESSMENT/PLAN: Patient is a 24 year old male with a past medical history of cerebral palsy, epilepsy, asthma, herpes encephalitis, GT placement, GERD and PNA(06/01/19, requiring ET and ICU admission) who presented to the ED [facility] from [place] for shortness of breath. Patient was found to be hypoxic. CT scan showed LLL infiltrates, along with stool impaction w/ ileus. #Acute hypoxic respiratory failure likely 2/2 to aspiration pneumonia - Multiple previous admissions with similar episodes - Chest CT consistent with left lower pneumonia. Bilateral interstitial and mild airspace opacities. - Previous sputum cultures positive for Pseudomonas - Patient on Vancomycin 1 gm daily and Zosyn 3.375 gm q8h - Supplemental O2 to keep SpO2 >90% - Albuterol neb prn - f/u with sputum culture, blood culture, and urine culture and urine legionella antigen (r/o legionella), RSV/flu swabs. - Continue N/S @ 100 - Keeping HOB > 30 degrees - COVID pending - Lactic acidosis, resolved - Pulmonology (Dr. Schmid) consulted. Recommendations appreciated. #Sepsis 2/2 pneumonia - lactic acidosis resolved. - on Vancomycin 1 gm daily and Zosyn 3.375 gm q8h - f/u with sputum culture, blood culture, and urine culture and urine legionella antigen (r/o legionella), RSV/flu swabs. - covid pending - ID (Dr. Rosenthal) consulted. REcommendations appreciated. #Fecal impaction w/ileus - CT and CXR imaging was significant for: Stool impaction, Mild air distention of small bowel, ileus - patient was given Sodium Phosphate(fleet enema) and Colace in the ED - Continue Rectal enemas and Colace - will reevaluate in the morning and if not improving will consult surgery for further recommendations #Transaminitis - Liver enzymes trending down - Patient has had elevated liver enzymes upon previous admissions - will continue Phenobarb for now, Seizure prevention. - Will continue to trend LFTs - RUQ showed borderline hepatomegaly with likely mild fatty inflitration #Hx of seizures - Currently asymptomatic - Will continue home meds #Hx of herpes encephalitis - Continue acyclovir 400 BID #FEN - N/S @ 100 - continue to monitor Electrolytes, LAC, BS and LFTs, and CBC - NPO, will resume feeds in am #DVT PPX - Lovenox 40mg sq daily #Disposition: - full code - Will continue to monitor patient on MS Visit type - Emergency Visit Emergency Visit: Yes ED Registration Date: 11/22/19 Care time: The patient presented to the Emergency Department on the above date and was hospitalized for further evaluation of their emergent condition. - New Patient This patient is new to me today: Yes Date on this admission: 11/23/19 - Critical Care Critical Care patient: No ATTENDING PHYSICIAN STATEMENT I saw and evaluated the patient. I reviewed the resident's note and discussed the case with the resident. I agree with the resident's findings and plan as documented. SUBJECTIVE: OBJECTIVE: ASSESSMENT AND PLAN:
[2019-11-23] MEDS ORDERED: ALBUTEROL SO4 HFA INHALER IH PRN (15:17)
[2019-11-23] MEDS ORDERED: SODIUM PHOSPHATE/NA BIPHOS 133 ML ENEMA PR ONE (15:29)
--- NOTE | 2019-11-23 20:48 | CONS ---
DATE OF CONSULTATION: DATE OF DICTATION: 11/23/2019 INFECTIOUS DISEASE CONSULTATION HISTORY OF PRESENT ILLNESS: This is a 24-year-old man a resident of the [facility]. He has multiple disabilities including cerebral palsy and mental retardation. He is nonverbal. He was brought to the ER with hypoxia and was noted to have bilateral infiltrates. He was noted as well to have stool impaction. He had CAT scan to his chest, abdomen, and pelvis in the ER. I am asked to see him for antibiotic recommendations. He received Levaquin in the ER and then was switched to vancomycin and Zosyn. PAST MEDICAL HISTORY: Notable for mental retardation, cerebral palsy, asthma. He has had multiple admissions for pneumonia. 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 He has a G-tube. History of zoster. Functional quadriplegia. He has had multiple episodes of stool impaction as well. He has a history of seizure disorder and GERD. He has a history of herpes encephalitis as well. He has had 2 recent admissions in May and June of this year, both times sputum cultures grew pseudomonas. SOCIAL HISTORY: He resides at the [facility]. No history of alcohol or drug use. ALLERGIES: He has no known drug allergies. MEDICATION: Include: 1. Acyclovir. 2. Baclofen. 3. 4. Clonazepam. 5. Lamotrigine. 6. Multivitamins. 7. Phenobarbital. 8. Diazepam. 9. Protein supplement. 10. Pulmicort nebulizer. 11. Flonase. 12. DuoNeb. 13. Benadryl. 14. Famotidine. 15. Lactobacillus. 16. Simethicone. REVIEW OF SYSTEMS: Not obtainable. PHYSICAL EXAMINATION: General: He is resting comfortably. Vital Signs: Temperature 97.8, pulse 103, blood pressure 104/67, respiratory rate 24 saturating 92% on a Ventimask. HEENT: Normocephalic. Atraumatic. Lungs: Scattered rhonchi. Heart: Regular rate and rhythm. Abdomen: Soft. G-tube is intact. Extremities: Without edema. Feet are contracted, and he is in a position. Neurological: He cannot follow commands. He opens his eyes. LABORATORY: His white count on admission is 13.4, this morning is 15.6, hemoglobin 14.8, platelets are 183. His BUN and creatinine are 15 and 0.6. Elevated LFTs: AST 57, ALT 97, alkaline phosphatase of 380. His lactic acid was as high as 5.2, is now 1.2. Urinalysis is negative. COVID-19 PCR is pending. Cultures are pending. CAT scan findings as previously stated are notable for bilateral patchy infiltrates and stool impaction. IMPRESSION: In summary, this is a 24-year-old man from the [facility] admitted for pneumonia, probably aspiration. Would check nares for methicillin-resistant Staphylococcus aureus, as he is unable to give a sputum culture. Urinary antigens. Follow up blood cultures. Continue vancomycin and Zosyn. Fecal impaction per gastrointestinal. Multiple disabilities and abnormal liver function tests. He should have a liver sonogram. They appear to be trending down, so this may all be due to sepsis. Further recommendations to follow. OZZY THAYER M.D. [id number] MTDD
[2019-11-23] MEDS ORDERED: PT OWN MED DRAWER 7, Y5N ONE (21:26)
[2019-11-23] MEDS ORDERED: PATIENT'S OWN MEDICATION (NON-FORMULARY) (Lactobacillus Acidophilus [Acidophilus] 1 EACH) PO SCH (22:00)
--- NOTE | 2019-11-23 22:14 | PN ---
Teaching Attending Note Name of Resident: Hallie Guillen ATTENDING PHYSICIAN STATEMENT I saw and evaluated the patient. I reviewed the resident's note and discussed the case with the resident. I agree with the resident's findings and plan as documented. SUBJECTIVE: Patient seen and examined at bedside, severely de-conditioned, UTI/PNA/sepsis. OBJECTIVE: GENERAL: The patient is awake, alert, nonverbal, on nonrebreather NECK: supple. EARS, NOSE, THROAT:ears normal, nares patent, oropharynx clear. copious secretions noted. NECK: Normal range of motion, supple without lymphadenopathy, JVD, or masses. LUNGS: Coarse breath sounds bilaterally HEART: Regular rate and rhythm, normal S1 and S2 without murmur, rub or gallop. ABDOMEN: Soft, nontender, not distended, normoactive bowel sounds JUDY: no hemorrhoids, no masses, normal rectal tone, no stool on rectal vault LOWER EXTREMITIES: 2+ pulses, warm, well-perfused. No peripheral edema. contracted extremities SKIN: Warm, dry, normal turgor Vital Signs - 24 hr 11/22/19 11/22/19 11/23/19 22:48 23:30 01:58 Temperature 97.4 F L 97.5 F L Pulse Rate 95 H 120 H Pulse Rate [ 104 H Apical] Respiratory 44 H 36 H 20 Rate Blood Pressure 115/86 120/86 Blood Pressure 104/59 L [Right Arm] O2 Sat by Pulse 100 97 Oximetry (%) 11/23/19 11/23/19 11/23/19 06:00 09:00 10:00 Temperature 98.7 F 97.8 F Pulse Rate 101 H 103 H Pulse Rate [ Apical] Respiratory 20 22 H 22 H Rate Blood Pressure 135/74 104/67 Blood Pressure [Right Arm] O2 Sat by Pulse 92 L 92 L Oximetry (%) 11/23/19 11/23/19 11/23/19 14:00 16:05 18:00 Temperature 99.3 F 98.6 F Pulse Rate 114 H 115 H Pulse Rate [ Apical] Respiratory 22 H 20 Rate Blood Pressure 108/71 117/72 Blood Pressure [Right Arm] O2 Sat by Pulse 92 L 92 L 93 L Oximetry (%) Microbiology 11/22/19 13:53 Blood - Peripheral Venous Blood Culture - Preliminary NO GROWTH OBTAINED AFTER 24 HOURS, INCUBATION TO CONTINUE FOR 4 DAYS. 11/22/19 12:55 Blood - Peripheral Venous Blood Culture - Preliminary NO GROWTH OBTAINED AFTER 24 HOURS, INCUBATION TO CONTINUE FOR 4 DAYS. Laboratory Results - last 24 hr 11/22/19 11/23/19 11/23/19 21:30 00:41 03:15 WBC RBC Hgb Hct MCV MCH MCHC RDW Plt Count MPV Absolute Neuts (auto) Neutrophils % Lymphocytes % Monocytes % Eosinophils % Basophils % Nucleated RBC % Anticoagulation Therapy No Result Required. Puncture Site No Result Required. Patient Temperature No Result Required. ABG pH 7.332 L ABG pCO2 47.10 H ABG pO2 264.2 H ABG HCO3 24.4 ABG O2 Sat (Measured) 99.6 H ABG O2 Content No Result Required. ABG Base Excess -2.0 Kaushal Test No Result Required. Patient On Oxygen Yes O2 Delivery Device Non rebreather mask Oxygen Flow Rate 100% Vent Mode No Result Required. Vent Rate No Result Required. Mechanical Rate No Result Required. PEEP No Result Required. Pressure Support Vent No Result Required. Sodium Potassium Chloride Carbon Dioxide Anion Gap BUN Creatinine Est GFR (CKD-EPI)AfAm Est GFR (CKD-EPI)NonAf Random Glucose Lactic Acid 5.2 H* 2.2 H* Calcium Phosphorus Magnesium Total Bilirubin AST ALT Alkaline Phosphatase Total Protein Albumin 11/23/19 11/23/19 11/23/19 06:50 06:50 06:50 WBC 15.6 H RBC 4.52 Hgb 14.8 Hct 44.4 D MCV 98.2 H MCH 32.8 MCHC 33.4 RDW 15.4 Plt Count 183 D MPV 10.5 Absolute Neuts (auto) 13.6 H Neutrophils % 87.1 H D Lymphocytes % 7.2 L D Monocytes % 5.3 Eosinophils % 0.1 D Basophils % 0.3 Nucleated RBC % 0 Anticoagulation Therapy Puncture Site Patient Temperature ABG pH ABG pCO2 ABG pO2 ABG HCO3 ABG O2 Sat (Measured) ABG O2 Content ABG Base Excess Kaushal Test Patient On Oxygen O2 Delivery Device Oxygen Flow Rate Vent Mode Vent Rate Mechanical Rate PEEP Pressure Support Vent Sodium 140 Potassium 4.7 Chloride 108 H Carbon Dioxide 23 Anion Gap 10 BUN 15.4 Creatinine 0.6 Est GFR (CKD-EPI)AfAm 164.25 Est GFR (CKD-EPI)NonAf 141.72 Random Glucose 81 Lactic Acid 1.2 Calcium 9.2 Phosphorus 4.0 Magnesium 1.9 Total Bilirubin 0.4 AST 57 H ALT 97 H Alkaline Phosphatase 380 H Total Protein 8.2 Albumin 3.5 Home Medications Medication Instructions Recorded Acyclovir 400 mg GT BID 04/25/17 Baclofen 10 mg GT BID 04/25/17 Clobazam [Onfi -] 10 mg GT HS 04/25/17 Clonazepam 1.5 mg GT TID 04/25/17 Lamotrigine 200 mg GT BID 04/25/17 Multivitamin [Poly-Vitamin] 1 each GT HS 04/25/17 Phenobarbital 48.6 mg GT BID 04/25/17 Diazepam Rectal Gel [Diastat 7.5 mg RI PRN PRN 05/23/18 Rectal Gel -] Protein Supplement [Promod] 1,190 ml GT DAILY 05/23/18 Budesonide [Pulmicort 0.25 mg 1 neb IH BID 02/05/19 Nebulizer -] Fluticasone Prop 0.05% Nasal 2 spray NS AM 02/05/19 [Flonase -] Magnesium Hydrox 2400MG/30Ml [Milk 20 ml GT BID 02/05/19 of Magnesia -] Albuterol 2.5/Ipratropium 0.5 1 neb IH QID PRN #30 neb 02/14/19 [Duoneb -] Sodium Chloride/Aloe Vera [[place] 22 ml NS BID 06/01/19 Saline Nasal Gel Erin] Bisacodyl 10 mg RC PRN PRN 11/22/19 Diphenhydramine [Benadryl Oral 25 mg PO Q6H PRN 11/22/19 Solution -] Famotidine 10 mg PO BID 11/22/19 Lactobacillus Acidophilus 1 each PO HS 11/22/19 [Acidophilus] Simethicone Liquid [Mylicon] 40 mg PO QID PRN 11/22/19 Current Medications Generic Name Dose Route Start Last Admin Trade Name Freq PRN Reason Stop Dose Admin Acyclovir 400 mg 11/23/19 10:00 11/23/19 10:33 Zovirax Oral Suspension - GT 400 mg BID JORGE Administration Albuterol Sulfate 1 amp 11/23/19 14:54 Ventolin 0.083% Nebulizer Soln - NEB Q4H PRN SHORT OF BREATH/WHEEZING Albuterol Sulfate 2 puff 11/23/19 15:17 Ventolin Hfa Inhaler - IH Q4H PRN SHORTNESS OF BREATH Baclofen 10 mg 11/23/19 10:00 11/23/19 10:32 Lioresal - GT 10 mg BID JORGE Administration Bisacodyl 10 mg 11/22/19 22:19 Dulcolax Suppository - RC HS PRN CONSTIPATION Clobazam 10 mg 11/23/19 22:00 Onfi - GT HS JORGE Clonazepam 1.5 mg 11/23/19 06:00 11/23/19 14:18 Klonopin - GT 1.5 mg TID JORGE Administration Diazepam 7.5 mg 11/22/19 22:19 Diastat Rectal Gel - RC PRN PRN <Seizures> Diphenhydramine HCl 25 mg 11/22/19 22:43 Benadryl Oral Solution - GT Q6H PRN ALLERGIES Docusate Sodium 100 mg 11/22/19 22:42 11/23/19 10:32 Colace Liquid - GT 100 mg BID JORGE Administration Enoxaparin Sodium 40 mg 11/24/19 10:00 Lovenox - SQ DAILY JORGE Sodium Chloride 1,000 mls @ 100 mls/hr 11/22/19 23:30 11/23/19 00:51 Normal Saline - IV 100 mls/hr ASDIR JORGE Administration Piperacillin Sod/Tazobactam 50 mls @ 100 mls/hr 11/24/19 02:00 Sod 3.375 gm/ Dextrose IVPB Q8H-IV JORGE Protocol Vancomycin HCl 1,000 mg in 250 mls @ 200 mls/hr 11/23/19 22:00 Vancomycin (Pre-Docked) IVPB Q24H JORGE Protocol Lactobacillus Acidophilus 1 tab 11/23/19 22:00 Bacid - PO HS JORGE Lamotrigine 200 mg 11/23/19 10:00 11/23/19 10:33 Lamictal - PO 200 mg BID JORGE Administration Phenobarbital 45 mg 11/23/19 10:00 11/23/19 12:26 Phenobarbital Liquid - GT 45 mg BID JORGE Administration Senna 8.8 mg 11/23/19 10:00 11/23/19 12:15 Senna Oral Solution - PO 5 ml BID JORGE Administration Sodium Chloride 2 spray 11/23/19 10:00 11/23/19 12:16 [place] Erin Nasal Erin - NS 2 spray BID JORGE Administration ASSESSMENT AND PLAN: 24 M UTI PNA Sepsis Seizure disorder MR Non-verbal Non-communicative Bed bound Deconditioned Plan: Cont. Vanco/Zosyn given h/o UTI/sepsis w/ pseudomonas in past IVF, supplement O2 to keep >95% Cont. seizure meds Alonso-culture, and follow ID following Pulmonary following DVT ppx: Lovenox
[2019-11-23] MEDS: LACTOBACILLUS ACIDOPHILUS 1 TABLET PO SCH (23:01)
[2019-11-23] MEDS: cloBAZam 10 MG TABLET GT SCH (23:02)
[2019-11-23] MEDS: VANCOMYCIN 1 GRAM (PRE-DOCKED) 1,000 MG/250 ML BAG IVPB SCH (23:03)
[2019-11-24] MEDS ORDERED: ACETAMINOPHEN 325 MG TABLET (FP) PO PRN (00:11)
[2019-11-24] MEDS ORDERED: DEXTROSE 5%-WATER - 50 ML IVPB ONE ×3 (01:03→17:35)
[2019-11-24] MEDS ORDERED: PIPERACILLIN/TAZOBACTAM 3.375 GM VIAL IVPB ONE ×3 (01:03→17:35)
[2019-11-24] MEDS: PIPERACILLIN/TAZOB 3.375 GM 3.375 GM in DEXTROSE 5%-WATER - 50 ML IVPB SCH ×3 (01:32→17:39)
[2019-11-24] MEDS ORDERED: PT OWN MED DRAWER 7, Y5N ONE ×4 (03:32→21:10)
[2019-11-24] MEDS: clonazePAM 0.5 MG TABLET GT SCH ×3 (06:15→21:50)
[2019-11-24 08:38] LABS: BASO % 0.3 % (0-2.0); EOS % 1.7 % (0-4.5); HEMATOCRIT 40.2 % (35.4-49); HEMOGLOBIN 13.7 GM/dL (11.7-16.9); LYMPH % 19.6 % (8-40); MCH 33.5 pg (25.7-33.7); MCHC 34.2 g/dl (32.0-35.9); MEAN PLT VOLUME 10.3 fl (7.5-11.1); MONO % 9.9 % (3.8-10.2); NEUT % 68.5 % (42.8-82.8); PLATELET COUNT 152 K/MM3 (134-434); RDW 15.3 % (11.9-15.9); WHITE BLOOD COUNT 8.8 K/mm3 (4.0-10.0)
[2019-11-24 09:14] LABS: BILIRUBIN,TOTAL 0.6 mg/dL (0.2-1); BLOOD UREA NITROGEN 7.9 mg/dL (7-18); CALCIUM 8.4 mg/dL (8.5-10.1); CREATININE 0.6 mg/dL (0.55-1.3); MAGNESIUM 1.6 mg/dL (1.8-2.4); PHOSPHOROUS 4.2 mg/dL (2.5-4.9); TOT PROT 6.9 g/dl (6.4-8.2)
[2019-11-24] MEDS: PHENobarbital 20 MG/5 ML UNIT-DOSE CUP GT SCH ×2 (09:16→21:42)
[2019-11-24] MEDS: ENOXAPARIN NA (PORCINE) 40 MG/0.4 ML DISP.SYRIN SQ SCH (09:18)
[2019-11-24 09:19] LABS: POTASSIUM 2.9 mmol/L (3.5-5.1)
[2019-11-24] MEDS: BACLOFEN 10 MG TABLET (FP) GT SCH ×2 (09:19→21:51)
[2019-11-24] MEDS: DOCUSATE NA 100 MG/10 ML UNIT-DOSE CUPS GT SCH ×2 (09:19→21:41)
[2019-11-24] MEDS: lamoTRIgine 100 MG TABLET PO SCH ×2 (09:19→21:51)
[2019-11-24] MEDS: SENNOSIDES 8.8 MG/5 ML BULK BOTTLE PO SCH ×2 (09:19→21:40)
[2019-11-24] MEDS: ACYCLOVIR 200 MG/5 ML LIQUID GT SCH ×2 (09:20→21:40)
[2019-11-24] MEDS: SODIUM CHLORIDE NASAL SPRAY 44 ML BOTTLE NS SCH ×2 (09:20→21:51)
[2019-11-24] MEDS ORDERED: MAGNESIUM 2GM/50ML STERILE WATER IVPB IVPB ONE (10:15)
[2019-11-24] MEDS: POTASSIUM CHLORIDE ORAL LIQUID 20 MEQ/15 ML PO SCH ×2 (10:36→21:40)
--- NOTE | 2019-11-24 10:43 | PN ---
Physical Exam: SUBJECTIVE: Patient seen and examined at bedside this morning. Patient noted to have no urine output yesterday, straight cath done overnight >900cc urine drained. Noted to be retaining again this morning, esqueda inserted. Otherwise, patient remains afebrile, saturating 98% on NRB. OBJECTIVE: Vital Signs Temperature 98 F 11/24/19 06:00 Pulse Rate 70 11/24/19 06:00 Respiratory Rate 20 11/24/19 06:00 Blood Pressure 105/43 L 11/24/19 06:00 O2 Sat by Pulse Oximetry (%) 99 11/24/19 00:00 GENERAL: The patient is awake, alert, nonverbal, on nonrebreather NECK: supple. EARS, NOSE, THROAT:ears normal, nares patent, oropharynx clear. copious secretions noted. NECK: Normal range of motion, supple without lymphadenopathy, JVD, or masses. LUNGS: Scattered rhonchi bilaterally HEART: Regular rate and rhythm, normal S1 and S2 ABDOMEN: Soft, nontender, not distended, normoactive bowel sounds LOWER EXTREMITIES: 2+ pulses, warm, well-perfused. No peripheral edema. SKIN: Warm, dry, normal turgor Laboratory Results - last 24 hr 11/24/19 11/24/19 08:05 08:05 WBC 8.8 RBC 4.10 Hgb 13.7 Hct 40.2 MCV 98.0 H MCH 33.5 MCHC 34.2 RDW 15.3 Plt Count 152 MPV 10.3 Absolute Neuts (auto) 6.1 Neutrophils % 68.5 D Lymphocytes % 19.6 D Monocytes % 9.9 D Eosinophils % 1.7 D Basophils % 0.3 Nucleated RBC % 0 Sodium 145 Potassium 2.9 L* Chloride 107 Carbon Dioxide 26 Anion Gap 11 BUN 7.9 Creatinine 0.6 Est GFR (CKD-EPI)AfAm 164.25 Est GFR (CKD-EPI)NonAf 141.72 Random Glucose 80 Calcium 8.4 L Phosphorus 4.2 Magnesium 1.6 L Total Bilirubin 0.6 AST 76 H ALT 87 H Alkaline Phosphatase 324 H Total Protein 6.9 Albumin 3.0 L Active Medications Generic Name Dose Route Start Last Admin Trade Name Freq PRN Reason Stop Dose Admin Acetaminophen 650 mg 11/24/19 00:11 Tylenol - PO Q6H PRN FEVER Acyclovir 400 mg 11/23/19 10:00 11/24/19 09:20 Zovirax Oral Suspension - GT 400 mg BID JORGE Administration Albuterol Sulfate 1 amp 11/23/19 14:54 Ventolin 0.083% Nebulizer Soln - NEB Q4H PRN SHORT OF BREATH/WHEEZING Albuterol Sulfate 2 puff 11/23/19 15:17 Ventolin Hfa Inhaler - IH Q4H PRN SHORTNESS OF BREATH Baclofen 10 mg 11/23/19 10:00 11/24/19 09:19 Lioresal - GT 10 mg BID JORGE Administration Bisacodyl 10 mg 11/22/19 22:19 Dulcolax Suppository - RC HS PRN CONSTIPATION Clobazam 10 mg 11/23/19 22:00 11/23/19 23:02 Onfi - GT 10 mg HS JORGE Administration Clonazepam 1.5 mg 11/23/19 06:00 11/24/19 06:15 Klonopin - GT 1.5 mg TID JORGE Administration Diazepam 7.5 mg 11/22/19 22:19 Diastat Rectal Gel - RC PRN PRN <Seizures> Diphenhydramine HCl 25 mg 11/22/19 22:43 Benadryl Oral Solution - GT Q6H PRN ALLERGIES Docusate Sodium 100 mg 11/22/19 22:42 11/24/19 09:19 Colace Liquid - GT 100 mg BID JORGE Administration Enoxaparin Sodium 40 mg 11/24/19 10:00 11/24/19 09:18 Lovenox - SQ 40 mg DAILY JORGE Administration Sodium Chloride 1,000 mls @ 100 mls/hr 11/22/19 23:30 11/23/19 22:56 Normal Saline - IV 100 mls/hr ASDIR JORGE Administration Piperacillin Sod/Tazobactam 50 mls @ 100 mls/hr 11/24/19 02:00 11/24/19 09:19 Sod 3.375 gm/ Dextrose IVPB 100 mls/hr Q8H-IV JORGE Administration Protocol Vancomycin HCl 1,000 mg in 250 mls @ 200 mls/hr 11/23/19 22:00 11/23/19 23:03 Vancomycin (Pre-Docked) IVPB 200 mls/hr Q24H JORGE Administration Protocol Lactobacillus Acidophilus 1 tab 11/23/19 22:00 11/23/19 23:01 Bacid - PO 1 tab HS JORGE Administration Lamotrigine 200 mg 11/23/19 10:00 11/24/19 09:19 Lamictal - PO 200 mg BID JORGE Administration Phenobarbital 45 mg 11/23/19 10:00 11/24/19 09:16 Phenobarbital Liquid - GT 45 mg BID JORGE Administration Potassium Chloride 40 meq 11/24/19 10:00 Potassium Chloride Oral Liquid PO 11/24/19 22:01 BID JORGE Senna 8.8 mg 11/23/19 10:00 11/24/19 09:19 Senna Oral Solution - PO 5 ml BID JORGE Administration Sodium Chloride 2 spray 11/23/19 10:00 11/24/19 09:20 [place] Nasal [place] - NS 2 spray BID JORGE Administration ASSESSMENT/PLAN: Patient is a 24 year old male with a past medical history of cerebral palsy, epilepsy, asthma, herpes encephalitis, GT placement, GERD and PNA(06/01/19, requiring ET and ICU admission) who presented to the ED [facility] from [place] for shortness of breath. Patient was found to be hypoxic. CT scan showed LLL infiltrates, along with stool impaction w/ ileus. #Acute hypoxic respiratory failure likely 2/2 to aspiration pneumonia - Multiple previous admissions with similar episodes - Chest CT consistent with left lower pneumonia. Bilateral interstitial and mild airspace opacities. - Previous sputum cultures positive for Pseudomonas - Patient on Vancomycin 1 gm daily and Zosyn 3.375 gm q8h day 2 - Supplemental O2 to keep SpO2 >90% - Albuterol neb prn - f/u with sputum culture, MRSA screen pending - blood culture, and urine culture no growth to date - urine legionella antigen (r/o legionella), RSV/flu swabs. - Continue N/S @ 100 - Keeping HOB > 30 degrees - COVID pending - Lactic acidosis, resolved - Pulmonology (Dr. Schmid) consulted. Recommendations appreciated. #Sepsis 2/2 pneumonia - lactic acidosis resolved. - on Vancomycin 1 gm daily and Zosyn 3.375 gm q8h - cultures pending - covid pending - ID (Dr. Rosenthal) consulted. REcommendations appreciated. #Fecal impaction w/ileus - CT and CXR imaging was significant for: Stool impaction, Mild air distention of small bowel, ileus - Continue Rectal enemas and Colace - No bowel movements yet after 3 enemas, JUDY done no stool impaction noted - will repeat KUB this morning #Transaminitis - Liver enzymes trending down - Patient has had elevated liver enzymes upon previous admissions - will continue Phenobarb for now, Seizure prevention. - Will continue to trend LFTs - RUQ showed borderline hepatomegaly with likely mild fatty inflitration #Hx of seizures - Currently asymptomatic - Will continue home meds #Hx of herpes encephalitis - Continue acyclovir 400 BID #FEN - N/S @ 100 - routine bmp monitoring - NPO, pending KUB #DVT PPX - Lovenox 40mg sq daily #Disposition: - full code - med surg Visit type - Emergency Visit Emergency Visit: Yes ED Registration Date: 11/22/19 Care time: The patient presented to the Emergency Department on the above date and was hospitalized for further evaluation of their emergent condition. - New Patient This patient is new to me today: No - Critical Care Critical Care patient: No ATTENDING PHYSICIAN STATEMENT I saw and evaluated the patient. I reviewed the resident's note and discussed the case with the resident. I agree with the resident's findings and plan as documented. SUBJECTIVE: OBJECTIVE: ASSESSMENT AND PLAN:
--- NOTE | 2019-11-24 10:43 | PN ---
Progress Note (short form) - Note Progress Note: PULMONARY Pt nonverbal. Low grade fever overnight. Vital Signs Period Temp Pulse Resp BP Sys/Linares Pulse Ox Last 24 Hr 98 F-100.8 F 70-115 20-22 105-117/43-72 92-99 Gen: NAD on NRB Heart: RRR Lung: decreased breath sounds at the bases Abd: soft, nontender Ext: no edema, contracted CBC, BMP 11/24/19 08:05 11/24/19 08:05 Active Medications Acetaminophen (Tylenol -) 650 mg PO Q6H PRN PRN Reason: FEVER Acyclovir (Zovirax Oral Suspension -) 400 mg GT BID [facility] Last Admin: 11/24/19 09:20 Dose: 400 mg Documented by: Albuterol Sulfate (Ventolin 0.083% Nebulizer Soln -) 1 amp NEB Q4H PRN PRN Reason: SHORT OF BREATH/WHEEZING Albuterol Sulfate (Ventolin Hfa Inhaler -) 2 puff IH Q4H PRN PRN Reason: SHORTNESS OF BREATH Baclofen (Lioresal -) 10 mg GT BID [facility] Last Admin: 11/24/19 09:19 Dose: 10 mg Documented by: Bisacodyl (Dulcolax Suppository -) 10 mg RC HS PRN PRN Reason: CONSTIPATION Clobazam (Onfi -) 10 mg GT HS [facility] Last Admin: 11/23/19 23:02 Dose: 10 mg Documented by: Clonazepam (Klonopin -) 1.5 mg GT TID [facility] Last Admin: 11/24/19 06:15 Dose: 1.5 mg Documented by: Diazepam (Diastat Rectal Gel -) 7.5 mg RC PRN PRN PRN Reason: <Seizures> Diphenhydramine HCl (Benadryl Oral Solution -) 25 mg GT Q6H PRN PRN Reason: ALLERGIES Docusate Sodium (Colace Liquid -) 100 mg GT BID [facility] Last Admin: 11/24/19 09:19 Dose: 100 mg Documented by: Enoxaparin Sodium (Lovenox -) 40 mg SQ DAILY [facility] Last Admin: 11/24/19 09:18 Dose: 40 mg Documented by: Sodium Chloride (Normal Saline -) 1,000 mls @ 100 mls/hr IV ASDIR [facility] Last Admin: 11/23/19 22:56 Dose: 100 mls/hr Documented by: Piperacillin Sod/Tazobactam (Sod 3.375 gm/ Dextrose) 50 mls @ 100 mls/hr IVPB Q8H-IV JORGE; Protocol Last Admin: 11/24/19 09:19 Dose: 100 mls/hr Documented by: Vancomycin HCl (Vancomycin (Pre-Docked)) 1,000 mg in 250 mls @ 200 mls/hr IVPB Q24H JORGE; Protocol Last Admin: 11/23/19 23:03 Dose: 200 mls/hr Documented by: Lactobacillus Acidophilus (Bacid -) 1 tab PO HS [facility] Last Admin: 11/23/19 23:01 Dose: 1 tab Documented by: Lamotrigine (Lamictal -) 200 mg PO BID [facility] Last Admin: 11/24/19 09:19 Dose: 200 mg Documented by: Phenobarbital (Phenobarbital Liquid -) 45 mg GT BID [facility] Last Admin: 11/24/19 09:16 Dose: 45 mg Documented by: Potassium Chloride (Potassium Chloride Oral Liquid) 40 meq PO BID [facility] Stop: 11/24/19 22:01 Last Admin: 11/24/19 10:36 Dose: 40 meq Documented by: Senna (Senna Oral Solution -) 8.8 mg PO BID [facility] Last Admin: 11/24/19 09:19 Dose: 5 ml Documented by: Sodium Chloride ([place] Nasal [place] -) 2 spray NS BID [facility] Last Admin: 11/24/19 09:20 Dose: 2 spray Documented by: A/P Acute Hypoxic and Hypercapneic Respiratory Failure Pneumonia likely recurrent aspiration Sepsis Lactic Acidosis Elevated LFTs - continue antibiotics - f/u cultures, serologies - O2 to keep SpO2 >90% - inhaled bronchodilators - IVF - trend LFTs - keep HOB >30deg - DVT prophylaxis
[2019-11-24] MEDS: SODIUM CHLORIDE 1,000 ML IV SCH (11:00)
[2019-11-24] MEDS ORDERED: ALBUTEROL SO4 0.083% IH SOL 2.5 MG/3 ML VIAL.NEB. NEB PRN (14:18)
--- NOTE | 2019-11-24 14:54 | PN ---
Progress Note (short form) - Note Progress Note: stable, nad wearing ventimask nonverbal Vital Signs Period Temp Pulse Resp BP Sys/Linares Pulse Ox Last 24 Hr 98 F-100.8 F 70-115 20-22 105-117/43-72 92-99 cor-rrr lungs-decreased bs at bases abd soft,nt +GT ext contracted CBC, BMP 11/24/19 08:05 11/24/19 08:05 Microbiology 11/22/19 13:53 Blood - Peripheral Venous Blood Culture - Preliminary NO GROWTH OBTAINED AFTER 48 HOURS, INCUBATION TO CONTINUE FOR 3 DAYS. 11/22/19 12:55 Blood - Peripheral Venous Blood Culture - Preliminary NO GROWTH OBTAINED AFTER 48 HOURS, INCUBATION TO CONTINUE FOR 3 DAYS. 11/24/19 03:05 Urine For Antigen Detection Legionella Antigen - Final 11/24/19 03:05 Urine For Antigen Detection Streptococcus pneumoniae Antigen (M - Final 11/22/19 20:20 Urine - Urine Lane Urine Culture - Final NO GROWTH OBTAINED IMP/RECCD probable aspiration pneumonia agree with vanco /zosyn for aspiration- check naresfor mrsa-if negative, can d/c vancomycin fecal impaction multiple disabilities abnl lfts
[2019-11-24] MEDS: VANCOMYCIN 1 GRAM (PRE-DOCKED) 1,000 MG/250 ML BAG IVPB SCH (21:34)
[2019-11-24] MEDS: LACTOBACILLUS ACIDOPHILUS 1 TABLET PO SCH (21:51)
[2019-11-24] MEDS: cloBAZam 10 MG TABLET GT SCH (21:51)
[2019-11-25] VITALS: BMI 30.2
--- NOTE | 2019-11-25 00:21 | PN ---
Teaching Attending Note Name of Resident: Hallie Guillen ATTENDING PHYSICIAN STATEMENT I saw and evaluated the patient. I reviewed the resident's note and discussed the case with the resident. I agree with the resident's findings and plan as documented. SUBJECTIVE: Patient seen and examined at bedside, breathing less-labored today, saturating OK on NRB/hi flow O2, poor prognosis overall. OBJECTIVE: GENERAL: patient resting comfortably, breathing less labored, deconditioned HEENT NC/AT, EOMI, neck supple, dry MM LUNGS: Coarse/distant breath sounds bilaterally, poor inspiratory effort, no accessory M use HEART: Regular rate and rhythm, normal S1 and S2 without murmur, rub or gallop. ABDOMEN: Soft, nontender, not distended, normoactive bowel sounds JUDY: no hemorrhoids, no masses, normal rectal tone, no stool on rectal vault LOWER EXTREMITIES: 2+ pulses, warm, well-perfused. No peripheral edema. contracted extremities SKIN: Warm, dry, normal turgor Vital Signs - 24 hr 11/24/19 11/24/19 11/24/19 01:51 06:00 08:00 Temperature 99.1 F 98 F Pulse Rate 70 Respiratory 20 20 Rate Blood Pressure 105/43 L O2 Sat by Pulse 95 Oximetry (%) 11/24/19 11/24/19 11/24/19 09:00 10:00 14:00 Temperature 98.2 F 98.3 F Pulse Rate 97 H 104 H Respiratory 22 H 22 H 22 H Rate Blood Pressure 108/63 111/45 L O2 Sat by Pulse 95 95 Oximetry (%) 11/24/19 11/24/19 16:00 16:10 Temperature 98.7 F Pulse Rate 91 H Respiratory 22 H 22 H Rate Blood Pressure 98/54 L O2 Sat by Pulse 96 Oximetry (%) Microbiology 11/22/19 13:53 Blood - Peripheral Venous Blood Culture - Preliminary NO GROWTH OBTAINED AFTER 48 HOURS, INCUBATION TO CONTINUE FOR 3 DAYS. 11/22/19 12:55 Blood - Peripheral Venous Blood Culture - Preliminary NO GROWTH OBTAINED AFTER 48 HOURS, INCUBATION TO CONTINUE FOR 3 DAYS. 11/24/19 03:05 Urine For Antigen Detection Legionella Antigen - Final 11/24/19 03:05 Urine For Antigen Detection Streptococcus pneumoniae Antigen (M - Final 11/22/19 20:20 Urine - Urine Lane Urine Culture - Final NO GROWTH OBTAINED Laboratory Results - last 24 hr 11/22/19 11/24/19 11/24/19 12:55 08:05 08:05 WBC 8.8 RBC 4.10 Hgb 13.7 Hct 40.2 MCV 98.0 H MCH 33.5 MCHC 34.2 RDW 15.3 Plt Count 152 MPV 10.3 Absolute Neuts (auto) 6.1 Neutrophils % 68.5 D Lymphocytes % 19.6 D Monocytes % 9.9 D Eosinophils % 1.7 D Basophils % 0.3 Nucleated RBC % 0 Sodium 145 Potassium 2.9 L* Chloride 107 Carbon Dioxide 26 Anion Gap 11 BUN 7.9 Creatinine 0.6 Est GFR (CKD-EPI)AfAm 164.25 Est GFR (CKD-EPI)NonAf 141.72 Random Glucose 80 Calcium 8.4 L Phosphorus 4.2 Magnesium 1.6 L Total Bilirubin 0.6 AST 76 H ALT 87 H Alkaline Phosphatase 324 H Total Protein 6.9 Albumin 3.0 L COVID-19 (JOSEPHINE) Not detected Influenza A (Rapid) Influenza B (Rapid) RSV Rapid 11/24/19 11/24/19 12:00 12:00 WBC RBC Hgb Hct MCV MCH MCHC RDW Plt Count MPV Absolute Neuts (auto) Neutrophils % Lymphocytes % Monocytes % Eosinophils % Basophils % Nucleated RBC % Sodium Potassium Chloride Carbon Dioxide Anion Gap BUN Creatinine Est GFR (CKD-EPI)AfAm Est GFR (CKD-EPI)NonAf Random Glucose Calcium Phosphorus Magnesium Total Bilirubin AST ALT Alkaline Phosphatase Total Protein Albumin COVID-19 (JOSEPHINE) Influenza A (Rapid) Negative Influenza B (Rapid) Negative RSV Rapid Positive A Home Medications Medication Instructions Recorded Acyclovir 400 mg GT BID 04/25/17 Baclofen 10 mg GT BID 04/25/17 Clobazam [Onfi -] 10 mg GT HS 04/25/17 Clonazepam 1.5 mg GT TID 04/25/17 Lamotrigine 200 mg GT BID 04/25/17 Multivitamin [Poly-Vitamin] 1 each GT HS 04/25/17 Phenobarbital 48.6 mg GT BID 04/25/17 Diazepam Rectal Gel [Diastat 7.5 mg [place] PRN PRN 05/23/18 Rectal Gel -] Protein Supplement [Promod] 1,190 ml GT DAILY 05/23/18 Budesonide [Pulmicort 0.25 mg 1 neb IH BID 02/05/19 Nebulizer -] Fluticasone Prop 0.05% Nasal 2 spray NS AM 02/05/19 [Flonase -] Magnesium Hydrox 2400MG/30Ml [Milk 20 ml GT BID 02/05/19 of Magnesia -] Albuterol 2.5/Ipratropium 0.5 1 neb IH QID PRN #30 neb 02/14/19 [Duoneb -] Sodium Chloride/Aloe Vera [[place] 22 ml NS BID 06/01/19 Saline Nasal Gel [place]] Bisacodyl 10 mg RC PRN PRN 11/22/19 Diphenhydramine [Benadryl Oral 25 mg PO Q6H PRN 11/22/19 Solution -] Famotidine 10 mg PO BID 11/22/19 Lactobacillus Acidophilus 1 each PO HS 11/22/19 [Acidophilus] Simethicone Liquid [Mylicon] 40 mg PO QID PRN 11/22/19 Current Medications Generic Name Dose Route Start Last Admin Trade Name Freq PRN Reason Stop Dose Admin Acetaminophen 650 mg 11/24/19 00:11 Tylenol - PO Q6H PRN FEVER Acyclovir 400 mg 11/23/19 10:00 11/24/19 21:40 Zovirax Oral Suspension - GT 400 mg BID JORGE Administration Albuterol Sulfate 1 amp 11/24/19 14:18 Ventolin 0.083% Nebulizer Soln - NEB Q4H PRN SHORT OF BREATH/WHEEZING Albuterol Sulfate 2 puff 11/23/19 15:17 Ventolin Hfa Inhaler - Q4H PRN SHORTNESS OF BREATH Baclofen 10 mg 11/23/19 10:00 11/24/19 21:51 Lioresal - GT 10 mg BID JORGE Administration Bisacodyl 10 mg 11/22/19 22:19 Dulcolax Suppository - RC HS PRN CONSTIPATION Clobazam 10 mg 11/23/19 22:00 11/24/19 21:51 Onfi - GT 10 mg HS JORGE Administration Clonazepam 1.5 mg 11/23/19 06:00 11/24/19 21:50 Klonopin - GT 1.5 mg TID JORGE Administration Diazepam 7.5 mg 11/22/19 22:19 Diastat Rectal Gel - RC PRN PRN <Seizures> Diphenhydramine HCl 25 mg 11/22/19 22:43 Benadryl Oral Solution - GT Q6H PRN ALLERGIES Docusate Sodium 100 mg 11/22/19 22:42 11/24/19 21:41 Colace Liquid - GT 100 mg BID JORGE Administration Enoxaparin Sodium 40 mg 11/24/19 10:00 11/24/19 09:18 Lovenox - SQ 40 mg DAILY JORGE Administration Sodium Chloride 1,000 mls @ 100 mls/hr 11/22/19 23:30 11/24/19 11:00 Normal Saline - IV 100 mls/hr ASDIR JORGE Administration Piperacillin Sod/Tazobactam 50 mls @ 100 mls/hr 11/24/19 02:00 11/24/19 17:39 Sod 3.375 gm/ Dextrose IVPB 100 mls/hr Q8H-IV JORGE Administration Protocol Vancomycin HCl 1,000 mg in 250 mls @ 200 mls/hr 11/23/19 22:00 11/24/19 21:34 Vancomycin (Pre-Docked) IVPB 200 mls/hr Q24H JORGE Administration Protocol Lactobacillus Acidophilus 1 tab 11/23/19 22:00 11/24/19 21:51 Bacid - PO 1 tab HS JORGE Administration Lamotrigine 200 mg 11/23/19 10:00 11/24/19 21:51 Lamictal - PO 200 mg BID JORGE Administration Phenobarbital 45 mg 11/23/19 10:00 11/24/19 21:42 Phenobarbital Liquid - GT 45 mg BID JORGE Administration Senna 8.8 mg 11/23/19 10:00 11/24/19 21:40 Senna Oral Solution - PO 8.8 ml BID JORGE Administration Sodium Chloride 2 spray 11/23/19 10:00 11/24/19 21:51 [place] Nasal [place] - NS 2 spray BID JORGE Administration ASSESSMENT AND PLAN: 24 M UTI PNA Sepsis Seizure disorder MR Non-verbal Non-communicative Bed bound Deconditioned Plan: Cont. Vanco/Zosyn with adjustment of dose via troughs IVF, supplement O2 to keep >95% Cont. seizure meds follow cultures ID following Pulmonary following DVT ppx: Lovenox Will need Palliative discussion for GOC
[2019-11-25] MEDS: SODIUM CHLORIDE 1,000 ML IV SCH (00:26)
[2019-11-25] MEDS ORDERED: DEXTROSE 5%-WATER - 50 ML IVPB ONE ×3 (00:57→16:27)
[2019-11-25] MEDS ORDERED: PIPERACILLIN/TAZOBACTAM 3.375 GM VIAL IVPB ONE ×3 (00:57→16:27)
[2019-11-25] MEDS: PIPERACILLIN/TAZOB 3.375 GM 3.375 GM in DEXTROSE 5%-WATER - 50 ML IVPB SCH ×3 (01:19→17:40)
[2019-11-25] MEDS: clonazePAM 0.5 MG TABLET GT SCH ×3 (05:34→22:28)
[2019-11-25 08:23] LABS: BASO % 0.5 % (0-2.0); EOS % 3.8 % (0-4.5); HEMATOCRIT 38.6 % (35.4-49); LYMPH % 16.9 % (8-40); MCH 33.4 pg (25.7-33.7); MCHC 33.7 g/dl (32.0-35.9); MEAN CELL VOLUME 99.2 fl (80-96); MEAN PLT VOLUME 10.5 fl (7.5-11.1); MONO % 9.2 % (3.8-10.2); NEUT % 69.6 % (42.8-82.8); PLATELET COUNT 153 K/MM3 (134-434); RBC 3.89 M/mm3 (4.00-5.60); RDW 15.7 % (11.9-15.9); WHITE BLOOD COUNT 8.9 K/mm3 (4.0-10.0)
[2019-11-25 08:57] LABS: POTASSIUM 3.4 mmol/L (3.5-5.1)
[2019-11-25 09:18] LABS: ALBUMIN 2.5 g/dl (3.4-5.0); CALCIUM 8.5 mg/dL (8.5-10.1); CREATININE 0.4 mg/dL (0.55-1.3); MAGNESIUM 1.6 mg/dL (1.8-2.4); TOT PROT 6.2 g/dl (6.4-8.2)
[2019-11-25] MEDS ORDERED: MAGNESIUM 2GM/50ML STERILE WATER IVPB IVPB ONE (10:00)
[2019-11-25] MEDS ORDERED: POTASSIUM CHLORIDE ORAL LIQUID 20 MEQ/15 ML PO ONE (10:01)
--- NOTE | 2019-11-25 10:03 | PN ---
Physical Exam: SUBJECTIVE: Patient seen and examined. No bowel movements yet. OBJECTIVE: Vital Signs Temperature 97.8 F 11/25/19 09:08 Pulse Rate 80 11/25/19 09:08 Respiratory Rate 18 11/25/19 09:08 Blood Pressure 118/45 L 11/25/19 09:08 O2 Sat by Pulse Oximetry (%) 93 L 11/25/19 09:08 GENERAL: The patient is awake, alert, nonverbal, on nonrebreather NECK: supple. EARS, NOSE, THROAT:ears normal, nares patent, oropharynx clear. NECK: Normal range of motion, supple LUNGS: Scattered rhonchi bilaterally HEART: Regular rate and rhythm, normal S1 and S2 ABDOMEN: Soft, nontender, not distended, normoactive bowel sounds LOWER EXTREMITIES: 2+ pulses, warm, well-perfused. No peripheral edema. SKIN: Warm, dry, normal turgor Laboratory Results - last 24 hr 11/22/19 11/24/19 11/24/19 12:55 12:00 12:00 WBC RBC Hgb Hct MCV MCH MCHC RDW Plt Count MPV Absolute Neuts (auto) Neutrophils % Lymphocytes % Monocytes % Eosinophils % Basophils % Nucleated RBC % Sodium Potassium Chloride Carbon Dioxide Anion Gap BUN Creatinine Est GFR (CKD-EPI)AfAm Est GFR (CKD-EPI)NonAf Random Glucose Calcium Magnesium Total Bilirubin AST ALT Alkaline Phosphatase Total Protein Albumin COVID-19 (JOSEPHINE) Not detected Influenza A (Rapid) Negative Influenza B (Rapid) Negative RSV Rapid Positive A 11/25/19 11/25/19 06:50 06:50 WBC 8.9 RBC 3.89 L Hgb 13.0 Hct 38.6 MCV 99.2 H MCH 33.4 MCHC 33.7 RDW 15.7 Plt Count 153 MPV 10.5 Absolute Neuts (auto) 6.2 Neutrophils % 69.6 Lymphocytes % 16.9 Monocytes % 9.2 Eosinophils % 3.8 D Basophils % 0.5 Nucleated RBC % 0 Sodium 142 Potassium 3.4 L Chloride 108 H Carbon Dioxide 30 Anion Gap 4 L BUN 4.0 L Creatinine 0.4 L Est GFR (CKD-EPI)AfAm 194.04 Est GFR (CKD-EPI)NonAf 167.42 Random Glucose 85 Calcium 8.5 Magnesium 1.6 L Total Bilirubin 1.0 AST 77 H ALT 82 H Alkaline Phosphatase 283 H Total Protein 6.2 L Albumin 2.5 L COVID-19 (JOSEPHNIE) Influenza A (Rapid) Influenza B (Rapid) RSV Rapid Active Medications Generic Name Dose Route Start Last Admin Trade Name Debbie PRN Reason Stop Dose Admin Acetaminophen 650 mg 11/24/19 00:11 Tylenol - PO Q6H PRN FEVER Acyclovir 400 mg 11/23/19 10:00 11/24/19 21:40 Zovirax Oral Suspension - GT 400 mg BID JORGE Administration Albuterol Sulfate 1 amp 11/24/19 14:18 Ventolin 0.083% Nebulizer Soln - NEB Q4H PRN SHORT OF BREATH/WHEEZING Albuterol Sulfate 2 puff 11/23/19 15:17 Ventolin Hfa Inhaler - IH Q4H PRN SHORTNESS OF BREATH Baclofen 10 mg 11/23/19 10:00 11/24/19 21:51 Lioresal - GT 10 mg BID JORGE Administration Bisacodyl 10 mg 11/22/19 22:19 Dulcolax Suppository - RC HS PRN CONSTIPATION Clobazam 10 mg 11/23/19 22:00 11/24/19 21:51 Onfi - GT 10 mg HS JORGE Administration Clonazepam 1.5 mg 11/23/19 06:00 11/25/19 05:34 Klonopin - GT 1.5 mg TID JORGE Administration Diazepam 7.5 mg 11/22/19 22:19 Diastat Rectal Gel - RC PRN PRN <Seizures> Diphenhydramine HCl 25 mg 11/22/19 22:43 Benadryl Oral Solution - GT Q6H PRN ALLERGIES Docusate Sodium 100 mg 11/22/19 22:42 11/24/19 21:41 Colace Liquid - GT 100 mg BID JORGE Administration Enoxaparin Sodium 40 mg 11/24/19 10:00 11/24/19 09:18 Lovenox - SQ 40 mg DAILY JORGE Administration Sodium Chloride 1,000 mls @ 100 mls/hr 11/22/19 23:30 11/25/19 00:26 Normal Saline - IV 100 mls/hr ASDIR JORGE Administration Piperacillin Sod/Tazobactam 50 mls @ 100 mls/hr 11/24/19 02:00 11/25/19 01:19 Sod 3.375 gm/ Dextrose IVPB 100 mls/hr Q8H-IV JORGE Administration Protocol Vancomycin HCl 1,000 mg in 250 mls @ 200 mls/hr 11/23/19 22:00 11/24/19 21:34 Vancomycin (Pre-Docked) IVPB 200 mls/hr Q24H JORGE Administration Protocol Lactobacillus Acidophilus 1 tab 11/23/19 22:00 11/24/19 21:51 Bacid - PO 1 tab HS JORGE Administration Lamotrigine 200 mg 11/23/19 10:00 11/24/19 21:51 Lamictal - PO 200 mg BID JORGE Administration Magnesium Sulfate 2 gm 11/25/19 10:00 Magnesium Sulfate IVPB 11/25/19 10:01 ONCE ONE Phenobarbital 45 mg 11/23/19 10:00 11/24/19 21:42 Phenobarbital Liquid - GT 45 mg BID JORGE Administration Polyethylene Glycol 17 gm 11/25/19 10:00 Miralax (For Daily Use) - GT DAILY JORGE Potassium Chloride 40 meq 11/25/19 10:01 Potassium Chloride Oral Liquid PO 11/25/19 10:02 ONCE ONE Senna 8.8 mg 11/23/19 10:00 11/24/19 21:40 Senna Oral Solution - PO 8.8 ml BID JORGE Administration Sodium Chloride 2 spray 11/23/19 10:00 11/24/19 21:51 [place] Nasal [place] - NS 2 spray BID JORGE Administration ASSESSMENT/PLAN: Patient is a 24 year old male with a past medical history of cerebral palsy, epilepsy, asthma, herpes encephalitis, GT placement, GERD and PNA(06/01/19, requiring ET and ICU admission) who presented to the ED [facility] from [place] for shortness of breath. Patient was found to be hypoxic. CT scan showed LLL infiltrates, along with stool impaction w/ ileus. #Acute hypoxic respiratory failure likely 2/2 to aspiration pneumonia - Multiple previous admissions with similar episodes - Chest CT consistent with left lower pneumonia. Bilateral interstitial and mild airspace opacities. - Previous sputum cultures positive for Pseudomonas - Patient on Zosyn 3.375 gm q8h day 3 - MRSA screen negative, will d/c vancomycin - Supplemental O2 to keep SpO2 >90% - Albuterol neb prn - f/u with sputum culture, MRSA screen pending - blood culture, and urine culture no growth to date - urine legionella antigen (r/o legionella) - RSV positive, flu negative - COVID negative - Continue D5-LR @ 100 - Keeping HOB > 30 degrees - Lactic acidosis, resolved - Pulmonology (Dr. Schmid) consulted. Recommendations appreciated. #Sepsis 2/2 pneumonia - lactic acidosis resolved. - on Zosyn 3.375 gm q8h - cultures no growth to date - RSV positive - covid not detected - MRSA screen negative, vancomycin discontinued - ID (Dr. Rosenthal) consulted. REcommendations appreciated. #Fecal impaction w/ileus - still no BM reported - CT and CXR imaging was significant for: Stool impaction, Mild air distention of small bowel, ileus - KUB (11/23): some improvement since prior study. Colonic ileus vs mild distal obstruction due to distal stool. No free air. - Continue Rectal enemas and Colace - If continues to have no BM today, will consult surgeon tomorrow #Transaminitis - Liver enzymes trending down - Patient has had elevated liver enzymes upon previous admissions - will continue Phenobarb for now, Seizure prevention. - Will continue to trend LFTs - RUQ showed borderline hepatomegaly with likely mild fatty infiltration #Hx of seizures - Currently asymptomatic - Will continue home meds #Hx of herpes encephalitis - Continue acyclovir 400 BID #FEN - D5-LR @ 100 - routine bmp monitoring - NPO for now #DVT PPX - Lovenox 40mg sq daily #Disposition: - full code - med surg Visit type - Emergency Visit Emergency Visit: Yes ED Registration Date: 11/22/19 Care time: The patient presented to the Emergency Department on the above date and was hospitalized for further evaluation of their emergent condition. - New Patient This patient is new to me today: No - Critical Care Critical Care patient: No ATTENDING PHYSICIAN STATEMENT I saw and evaluated the patient. I reviewed the resident's note and discussed the case with the resident. I agree with the resident's findings and plan as documented. SUBJECTIVE: OBJECTIVE: ASSESSMENT AND PLAN:
--- NOTE | 2019-11-25 11:04 | PN ---
Progress Note (short form) - Note Progress Note: PULMONARY Sleeping/No distress Serology +RSV MRSA nasal negative Vss/afebrile Gen: NAD on NRB Heart: RRR Lung: decreased breath sounds at the bases Abd: soft, nontender Ext: no edema, contracted labs/meds/notes/images reviewed A/P Acute Hypoxic and Hypercapneic Respiratory Failure Pneumonia likely recurrent aspiration Sepsis Lactic Acidosis Elevated LFTs - antibiotics as per ID/ID follow up for RSV - O2 to keep SpO2 >90% - inhaled bronchodilators - IVF - trend LFTs - keep HOB >30deg - DVT prophylaxis Kwame David MD
[2019-11-25] MEDS ORDERED: PT OWN MED DRAWER 7, Y5N ONE ×2 (11:45→12:30)
[2019-11-25] MEDS ORDERED: DEXTROSE 5%-NORMAL SALINE 1,000 ML IV SCH (12:00)
[2019-11-25] MEDS: DEXTROSE 5%-LACTATED RINGERS 1,000 ML IV SCH (12:07)
[2019-11-25] MEDS: PHENobarbital 20 MG/5 ML UNIT-DOSE CUP GT SCH ×2 (12:08→22:24)
[2019-11-25] MEDS: DOCUSATE NA 100 MG/10 ML UNIT-DOSE CUPS GT SCH ×2 (12:09→22:24)
[2019-11-25] MEDS: SENNOSIDES 8.8 MG/5 ML BULK BOTTLE PO SCH ×2 (12:09→22:29)
[2019-11-25] MEDS: ACYCLOVIR 200 MG/5 ML LIQUID GT SCH ×2 (12:09→22:30)
[2019-11-25] MEDS: ENOXAPARIN NA (PORCINE) 40 MG/0.4 ML DISP.SYRIN SQ SCH (12:11)
[2019-11-25] MEDS: BACLOFEN 10 MG TABLET (FP) GT SCH ×2 (12:19→22:29)
[2019-11-25] MEDS: lamoTRIgine 100 MG TABLET PO SCH ×2 (12:19→22:25)
[2019-11-25] MEDS: POLYETHYLENE GLYCOL 3350 119 GM BTL GT SCH (12:20)
[2019-11-25] MEDS: SODIUM CHLORIDE NASAL SPRAY 44 ML BOTTLE NS SCH ×2 (12:20→22:29)
--- NOTE | 2019-11-25 13:34 | PN ---
Progress Note (short form) - Note Progress Note: stable, no distress wearing ventimask nonverbal Vital Signs Period Temp Pulse Resp BP Sys/Linares Pulse Ox Last 24 Hr 97.5 F-98.7 F 80-104 18-22 98-118/45-54 93-96 cor-rrr lungs clear abd soft,nt +GT ext contracted CBC, BMP 11/25/19 06:50 11/25/19 06:50 Microbiology 11/22/19 12:55 Blood - Peripheral Venous Blood Culture - Preliminary NO GROWTH OBTAINED AFTER 72 HOURS, INCUBATION TO CONTINUE FOR 2 DAYS. 11/23/19 17:20 Nares - Mrsa Screen - Right MRSA Screen - Final NO MRSA ISOLATED 11/23/19 17:20 Nares - Mrsa Screen - Left MRSA Screen - Final NO MRSA ISOLATED 11/22/19 13:53 Blood - Peripheral Venous Blood Culture - Preliminary NO GROWTH OBTAINED AFTER 48 HOURS, INCUBATION TO CONTINUE FOR 3 DAYS. 11/24/19 03:05 Urine For Antigen Detection Legionella Antigen - Final 11/24/19 03:05 Urine For Antigen Detection Streptococcus pneumoniae Antigen (M - Final 11/22/19 20:20 Urine - Urine Lane Urine Culture - Final NO GROWTH OBTAINED IMP/RECCD probable aspiration pneumonia continue zosyn day #3 +rsv antigen noted multiple disabilities abnl lfts-persistent
[2019-11-25] MEDS: cloBAZam 10 MG TABLET GT SCH (22:26)
[2019-11-25] MEDS: LACTOBACILLUS ACIDOPHILUS 1 TABLET PO SCH (22:28)
[2019-11-26] MEDS ORDERED: PIPERACILLIN/TAZOBACTAM 3.375 GM VIAL IVPB ONE ×3 (01:17→16:59)
[2019-11-26] MEDS ORDERED: DEXTROSE 5%-WATER - 50 ML IVPB ONE ×3 (01:17→16:59)
[2019-11-26] MEDS: PIPERACILLIN/TAZOB 3.375 GM 3.375 GM in DEXTROSE 5%-WATER - 50 ML IVPB SCH ×3 (01:23→17:08)
[2019-11-26] MEDS: clonazePAM 0.5 MG TABLET GT SCH ×3 (05:17→21:51)
[2019-11-26] MEDS ORDERED: PT OWN MED DRAWER 7, Y5N ONE ×2 (09:32→21:20)
[2019-11-26] MEDS: PHENobarbital 20 MG/5 ML UNIT-DOSE CUP GT SCH ×2 (09:38→21:51)
[2019-11-26] MEDS: DOCUSATE NA 100 MG/10 ML UNIT-DOSE CUPS GT SCH ×2 (09:38→21:51)
[2019-11-26] MEDS: lamoTRIgine 100 MG TABLET PO SCH ×2 (09:38→21:51)
[2019-11-26] MEDS: BACLOFEN 10 MG TABLET (FP) GT SCH ×2 (09:38→21:51)
[2019-11-26] MEDS: SENNOSIDES 8.8 MG/5 ML BULK BOTTLE PO SCH ×2 (09:39→21:51)
[2019-11-26] MEDS: ACYCLOVIR 200 MG/5 ML LIQUID GT SCH ×2 (09:39→21:52)
[2019-11-26] MEDS: ENOXAPARIN NA (PORCINE) 40 MG/0.4 ML DISP.SYRIN SQ SCH (09:39)
[2019-11-26] MEDS: SODIUM CHLORIDE NASAL SPRAY 44 ML BOTTLE NS SCH ×2 (09:40→21:51)
[2019-11-26 10:09] LABS: BASO % 0.4 % (0-2.0); EOS % 4.9 % (0-4.5); HEMATOCRIT 39.3 % (35.4-49); HEMOGLOBIN 13.3 GM/dL (11.7-16.9); LYMPH % 31.3 % (8-40); MCH 33.5 pg (25.7-33.7); MCHC 33.8 g/dl (32.0-35.9); MEAN CELL VOLUME 99.2 fl (80-96); MEAN PLT VOLUME 10.3 fl (7.5-11.1); MONO % 12.3 % (3.8-10.2); NEUT % 51.1 % (42.8-82.8); PLATELET COUNT 173 K/MM3 (134-434); RBC 3.96 M/mm3 (4.00-5.60); RDW 15.5 % (11.9-15.9); WHITE BLOOD COUNT 6.1 K/mm3 (4.0-10.0)
[2019-11-26] MEDS: POLYETHYLENE GLYCOL 3350 119 GM BTL GT SCH (10:32)
[2019-11-26 10:45] LABS: ALBUMIN 2.6 g/dl (3.4-5.0); BILIRUBIN,TOTAL 0.5 mg/dL (0.2-1); CALCIUM 8.3 mg/dL (8.5-10.1); CREATININE 0.6 mg/dL (0.55-1.3); MAGNESIUM 1.5 mg/dL (1.8-2.4); PHOSPHOROUS 3.3 mg/dL (2.5-4.9); POTASSIUM 3.5 mmol/L (3.5-5.1); TOT PROT 6.3 g/dl (6.4-8.2)
[2019-11-26 10:52] LABS: BLOOD UREA NITROGEN 2.7 mg/dL (7-18)
[2019-11-26] MEDS: DEXTROSE 5%-LACTATED RINGERS 1,000 ML IV SCH ×2 (12:00→14:00)
--- NOTE | 2019-11-26 13:36 | PN ---
Progress Note (short form) - Note Progress Note: Patient nonverbal. Remains on NRBM. No acute events overnight. Intake & Output 11/23/19 11/24/19 11/25/19 11/26/19 23:59 23:59 23:59 23:59 Intake Total 1870 1700 850 Output Total 2170 2600 800 Balance 1870 470 -2600 50 Weight 99 lb Last Vital Signs Temp Pulse Resp BP Pulse Ox 98.4 F 79 20 108/58 L 97 11/26/19 10:00 11/26/19 10:00 11/26/19 09:00 11/26/19 10:00 11/26/19 10:00 Active Medications Acetaminophen (Tylenol -) 650 mg PO Q6H PRN PRN Reason: FEVER Acyclovir (Zovirax Oral Suspension -) 400 mg GT BID [facility] Last Admin: 11/26/19 09:39 Dose: 400 mg Documented by: Albuterol Sulfate (Ventolin 0.083% Nebulizer Soln -) 1 amp NEB Q4H PRN PRN Reason: SHORT OF BREATH/WHEEZING Albuterol Sulfate (Ventolin Hfa Inhaler -) 2 puff IH Q4H PRN PRN Reason: SHORTNESS OF BREATH Baclofen (Lioresal -) 10 mg GT BID [facility] Last Admin: 11/26/19 09:38 Dose: 10 mg Documented by: Bisacodyl (Dulcolax Suppository -) 10 mg RC HS PRN PRN Reason: CONSTIPATION Clobazam (Onfi -) 10 mg GT HS [facility] Last Admin: 11/25/19 22:26 Dose: 10 mg Documented by: Clonazepam (Klonopin -) 1.5 mg GT TID [facility] Last Admin: 11/26/19 13:23 Dose: 1.5 mg Documented by: Diazepam (Diastat Rectal Gel -) 7.5 mg RC PRN PRN PRN Reason: <Seizures> Diphenhydramine HCl (Benadryl Oral Solution -) 25 mg GT Q6H PRN PRN Reason: ALLERGIES Docusate Sodium (Colace Liquid -) 100 mg GT BID [facility] Last Admin: 11/26/19 09:38 Dose: 100 mg Documented by: Enoxaparin Sodium (Lovenox -) 40 mg SQ DAILY [facility] Last Admin: 11/26/19 09:39 Dose: 40 mg Documented by: Piperacillin Sod/Tazobactam (Sod 3.375 gm/ Dextrose) 50 mls @ 100 mls/hr IVPB Q8H-IV JORGE; Protocol Last Admin: 11/26/19 09:39 Dose: 100 mls/hr Documented by: Dextrose/Lactated Ringer's (D5-Lr -) 1,000 mls @ 100 mls/hr IV ASDIR [facility] Last Admin: 11/26/19 12:00 Dose: Not Given Documented by: Lactobacillus Acidophilus (Bacid -) 1 tab PO HS [facility] Last Admin: 11/25/19 22:28 Dose: 1 tab Documented by: Lamotrigine (Lamictal -) 200 mg PO BID [facility] Last Admin: 11/26/19 09:38 Dose: 200 mg Documented by: Phenobarbital (Phenobarbital Liquid -) 45 mg GT BID [facility] Last Admin: 11/26/19 09:38 Dose: 45 mg Documented by: Polyethylene Glycol (Miralax (For Daily Use) -) 17 gm GT DAILY [facility] Last Admin: 11/26/19 10:32 Dose: 17 gm Documented by: Senna (Senna Oral Solution -) 8.8 mg PO BID [facility] Last Admin: 11/26/19 09:39 Dose: 5 ml Documented by: Sodium Chloride ([place] Nasal [place] -) 2 spray NS BID [facility] Last Admin: 11/26/19 09:40 Dose: 2 spray Documented by: Gen: Mildly tachypneic on NRBM Heart: RRR Lung: Scattered bilateral rhonchi, decreased breath sounds at the bases Abd: soft, nontender Ext: no edema, contracted Laboratory Results - last 24 hr 11/26/19 11/26/19 09:34 09:34 WBC 6.1 RBC 3.96 L Hgb 13.3 Hct 39.3 MCV 99.2 H MCH 33.5 MCHC 33.8 RDW 15.5 Plt Count 173 MPV 10.3 Absolute Neuts (auto) 3.1 Neutrophils % 51.1 D Lymphocytes % 31.3 D Monocytes % 12.3 H Eosinophils % 4.9 H Basophils % 0.4 Nucleated RBC % 0 Sodium 142 Potassium 3.5 Chloride 108 H Carbon Dioxide 31 Anion Gap 3 L BUN 2.7 L* Creatinine 0.6 Est GFR (CKD-EPI)AfAm 164.25 Est GFR (CKD-EPI)NonAf 141.72 Random Glucose 129 H Calcium 8.3 L Phosphorus 3.3 Magnesium 1.5 L Total Bilirubin 0.5 AST 45 H ALT 67 H Alkaline Phosphatase 274 H Total Protein 6.3 L Albumin 2.6 L A/P Acute Hypoxic and Hypercapneic Respiratory Failure Pneumonia likely recurrent aspiration Sepsis Lactic Acidosis Elevated LFTs - continue antibiotics per ID - O2 to keep SpO2 >90% - inhaled bronchodilators - trend LFTs - keep HOB >30 deg - DVT prophylaxis Dr Price
--- NOTE | 2019-11-26 18:06 | PN ---
Physical Exam: Patient is a 24 year old male with a past medical history of cerebral palsy, epilepsy, asthma, herpes encephalitis, GT placement, GERD and PNA(06/01/19, requiring ET and ICU admission) who presented to the ED [facility] from [place] for shortness of breath. Patient was found to be hypoxic. CT scan showed LLL infiltrates, along with stool impaction w/ ileus. SUBJECTIVE: Patient seen and examined at bedside, not in acute distress, non verbal on non-rebreather sat >95% OBJECTIVE: Vital Signs Period Temp Pulse Resp BP Sys/Linares Pulse Ox Last 24 Hr 97.6 F-98.4 F 78-79 - 108-110/58-68 96-97 GENERAL: The patient is awake, alert. HEAD: Normal with no signs of trauma. NECK: Trachea midline, supple. LUNGS: Breath sounds equal, Mild diffuse rales bilaterally, no wheezes, no accessory muscle use. HEART: Regular rate and rhythm, S1, S2 without murmur, rub or gallop. ABDOMEN: Soft, nontender, nondistended, normoactive bowel sounds, no guarding, no rebound, no hepatosplenomegaly, no masses. EXTREMITIES: 2+ pulses, warm, well-perfused, no edema. NEUROLOGICAL: contracted in position, unable to participate in neuro- assessment SKIN: Warm, dry, normal turgor, no rashes or lesions noted Laboratory Results - last 24 hr 11/26/19 11/26/19 09:34 09:34 WBC 6.1 RBC 3.96 L Hgb 13.3 Hct 39.3 MCV 99.2 H MCH 33.5 MCHC 33.8 RDW 15.5 Plt Count 173 MPV 10.3 Absolute Neuts (auto) 3.1 Neutrophils % 51.1 D Lymphocytes % 31.3 D Monocytes % 12.3 H Eosinophils % 4.9 H Basophils % 0.4 Nucleated RBC % 0 Sodium 142 Potassium 3.5 Chloride 108 H Carbon Dioxide 31 Anion Gap 3 L BUN 2.7 L* Creatinine 0.6 Est GFR (CKD-EPI)AfAm 164.25 Est GFR (CKD-EPI)NonAf 141.72 Random Glucose 129 H Calcium 8.3 L Phosphorus 3.3 Magnesium 1.5 L Total Bilirubin 0.5 AST 45 H ALT 67 H Alkaline Phosphatase 274 H Total Protein 6.3 L Albumin 2.6 L Active Medications Generic Name Dose Route Start Last Admin Trade Name Freq PRN Reason Stop Dose Admin Acetaminophen 650 mg 11/24/19 00:11 Tylenol - PO Q6H PRN FEVER Acyclovir 400 mg 11/23/19 10:00 11/26/19 09:39 Zovirax Oral Suspension - GT 400 mg BID JORGE Administration Albuterol Sulfate 1 amp 11/24/19 14:18 Ventolin 0.083% Nebulizer Soln - NEB Q4H PRN SHORT OF BREATH/WHEEZING Albuterol Sulfate 2 puff 11/23/19 15:17 Ventolin Hfa Inhaler - IH Q4H PRN SHORTNESS OF BREATH Baclofen 10 mg 11/23/19 10:00 11/26/19 09:38 Lioresal - GT 10 mg BID JORGE Administration Bisacodyl 10 mg 11/22/19 22:19 Dulcolax Suppository - RC HS PRN CONSTIPATION Clobazam 10 mg 11/23/19 22:00 11/25/19 22:26 Onfi - GT 10 mg HS JORGE Administration Clonazepam 1.5 mg 11/23/19 06:00 11/26/19 13:23 Klonopin - GT 1.5 mg TID JORGE Administration Diazepam 7.5 mg 11/22/19 22:19 Diastat Rectal Gel - RC PRN PRN <Seizures> Diphenhydramine HCl 25 mg 11/22/19 22:43 Benadryl Oral Solution - GT Q6H PRN ALLERGIES Docusate Sodium 100 mg 11/22/19 22:42 11/26/19 09:38 Colace Liquid - GT 100 mg BID JORGE Administration Enoxaparin Sodium 40 mg 11/24/19 10:00 11/26/19 09:39 Lovenox - SQ 40 mg DAILY JORGE Administration Piperacillin Sod/Tazobactam 50 mls @ 100 mls/hr 11/24/19 02:00 11/26/19 17:08 Sod 3.375 gm/ Dextrose IVPB 100 mls/hr Q8H-IV JORGE Administration Protocol Dextrose/Lactated Ringer's 1,000 mls @ 100 mls/hr 11/25/19 12:00 11/26/19 14:00 D5-Lr - IV 100 mls/hr ASDIR JORGE Administration Lactobacillus Acidophilus 1 tab 11/23/19 22:00 11/25/19 22:28 Bacid - PO 1 tab HS JORGE Administration Lamotrigine 200 mg 11/23/19 10:00 11/26/19 09:38 Lamictal - PO 200 mg BID JORGE Administration Phenobarbital 45 mg 11/23/19 10:00 11/26/19 09:38 Phenobarbital Liquid - GT 45 mg BID JORGE Administration Polyethylene Glycol 17 gm 11/25/19 10:00 11/26/19 10:32 Miralax (For Daily Use) - GT 17 gm DAILY JORGE Administration Senna 8.8 mg 11/23/19 10:00 11/26/19 09:39 Senna Oral Solution - PO 5 ml BID JORGE Administration Sodium Chloride 2 spray 11/23/19 10:00 11/26/19 09:40 [place] Nasal [place] - NS 2 spray BID JORGE Administration ASSESSMENT/PLAN: #Acute hypoxic/hypercapneic respiratory failure - Multiple previous admissions with similar episodes - Chest CT consistent with left lower pneumonia. Bilateral interstitial and mild airspace opacities. - Previous sputum cultures positive for Pseudomonas - Patient on Zosyn 3.375 gm q8h day 4, monitor platelets - WBC trending down - Albuterol neb prn - RSV positive - COVID negative - Continue D5-LR @ 100 - Keeping HOB > 30 degrees - Lactic acidosis, resolved - Pulmonology consult appreciated. #Fecal impaction w/ileus - still no BM reported - CT and CXR imaging was significant for: Stool impaction, Mild air distention of small bowel, ileus - KUB (11/23): some improvement since prior study. Colonic ileus vs mild distal obstruction due to distal stool. No free air. - Continue Rectal enemas and Colace #Transaminitis - Liver enzymes trending down - RUQ showed borderline hepatomegaly with likely mild fatty infiltration #Hx of seizures - Currently asymptomatic - Will continue home meds #Hx of herpes encephalitis - Continue acyclovir 400 BID #DVT PPX - Lovenox 40mg sq daily Visit type - Emergency Visit Emergency Visit: Yes ED Registration Date: 11/22/19 Care time: The patient presented to the Emergency Department on the above date and was hospitalized for further evaluation of their emergent condition. - New Patient This patient is new to me today: Yes Date on this admission: 11/26/19 - Critical Care Critical Care patient: No - Discharge Referral Referred to [facility] Med [facility].: No
[2019-11-26] MEDS ORDERED: MAGNESIUM SULFATE IN WATER 2 GM/50 ML IVPB IVPB ONE (18:10)
[2019-11-26] MEDS: LACTOBACILLUS ACIDOPHILUS 1 TABLET PO SCH (21:51)
[2019-11-26] MEDS: cloBAZam 10 MG TABLET GT SCH (21:51)
[2019-11-27] MEDS ORDERED: PIPERACILLIN/TAZOBACTAM 3.375 GM VIAL IVPB ONE ×3 (01:18→16:53)
[2019-11-27] MEDS ORDERED: DEXTROSE 5%-WATER - 50 ML IVPB ONE ×3 (01:19→16:53)
[2019-11-27] MEDS: PIPERACILLIN/TAZOB 3.375 GM 3.375 GM in DEXTROSE 5%-WATER - 50 ML IVPB SCH ×3 (01:28→17:45)
[2019-11-27] MEDS: clonazePAM 0.5 MG TABLET GT SCH ×3 (06:32→21:07)
[2019-11-27] MEDS: PHENobarbital 20 MG/5 ML UNIT-DOSE CUP GT SCH ×2 (09:31→21:07)
[2019-11-27] MEDS: SENNOSIDES 8.8 MG/5 ML BULK BOTTLE PO SCH ×2 (09:31→21:07)
[2019-11-27] MEDS: ENOXAPARIN NA (PORCINE) 40 MG/0.4 ML DISP.SYRIN SQ SCH (09:31)
[2019-11-27] MEDS: lamoTRIgine 100 MG TABLET PO SCH ×2 (09:31→21:07)
[2019-11-27] MEDS: DOCUSATE NA 100 MG/10 ML UNIT-DOSE CUPS GT SCH ×2 (09:31→21:07)
[2019-11-27] MEDS: BACLOFEN 10 MG TABLET (FP) GT SCH ×2 (09:32→21:07)
[2019-11-27] MEDS: SODIUM CHLORIDE NASAL SPRAY 44 ML BOTTLE NS SCH ×2 (09:32→21:07)
[2019-11-27] MEDS: ACYCLOVIR 200 MG/5 ML LIQUID GT SCH ×2 (09:33→21:07)
[2019-11-27] MEDS ORDERED: PT OWN MED DRAWER 7, Y5N ONE (09:55)
[2019-11-27] MEDS: POLYETHYLENE GLYCOL 3350 119 GM BTL GT SCH (10:05)
[2019-11-27] MEDS: DEXTROSE 5%-LACTATED RINGERS 1,000 ML IV SCH ×2 (12:00→15:33)
--- NOTE | 2019-11-27 13:47 | PN ---
Progress Note (short form) - Note Progress Note: Patient nonverbal. Remains on NRBM. No acute events overnight. Intake & Output 11/24/19 11/25/19 11/26/19 11/27/19 23:59 23:59 23:59 23:59 Intake Total 1700 2050 1200 Output Total 2170 2600 2100 1000 Balance -470 -2600 -50 200 Weight 99 lb Last Vital Signs Temp Pulse Resp BP Pulse Ox 98.1 F 62 22 H 100/54 L 94 L 11/27/19 10:00 11/27/19 10:00 11/27/19 10:00 11/27/19 10:00 11/27/19 10:00 Active Medications Acetaminophen (Tylenol -) 650 mg PO Q6H PRN PRN Reason: FEVER Acyclovir (Zovirax Oral Suspension -) 400 mg GT BID [facility] Last Admin: 11/27/19 09:33 Dose: 400 mg Documented by: Albuterol Sulfate (Ventolin 0.083% Nebulizer Soln -) 1 amp NEB Q4H PRN PRN Reason: SHORT OF BREATH/WHEEZING Albuterol Sulfate (Ventolin Hfa Inhaler -) 2 puff IH Q4H PRN PRN Reason: SHORTNESS OF BREATH Baclofen (Lioresal -) 10 mg GT BID [facility] Last Admin: 11/27/19 09:32 Dose: 10 mg Documented by: Bisacodyl (Dulcolax Suppository -) 10 mg RC HS PRN PRN Reason: CONSTIPATION Clobazam (Onfi -) 10 mg GT HS [facility] Last Admin: 11/26/19 21:51 Dose: 10 mg Documented by: Clonazepam (Klonopin -) 1.5 mg GT TID [facility] Last Admin: 11/27/19 13:27 Dose: 1.5 mg Documented by: Diphenhydramine HCl (Benadryl Oral Solution -) 25 mg GT Q6H PRN PRN Reason: ALLERGIES Docusate Sodium (Colace Liquid -) 100 mg GT BID [facility] Last Admin: 11/27/19 09:31 Dose: 100 mg Documented by: Enoxaparin Sodium (Lovenox -) 40 mg SQ DAILY [facility] Last Admin: 11/27/19 09:31 Dose: 40 mg Documented by: Piperacillin Sod/Tazobactam (Sod 3.375 gm/ Dextrose) 50 mls @ 100 mls/hr IVPB Q8H-IV JORGE; Protocol Last Admin: 11/27/19 09:31 Dose: 100 mls/hr Documented by: Dextrose/Lactated Ringer's (D5-Lr -) 1,000 mls @ 100 mls/hr IV ASDIR [facility] Last Admin: 11/26/19 14:00 Dose: 100 mls/hr Documented by: Lactobacillus Acidophilus (Bacid -) 1 tab PO HS [facility] Last Admin: 11/26/19 21:51 Dose: 1 tab Documented by: Lamotrigine (Lamictal -) 200 mg PO BID [facility] Last Admin: 11/27/19 09:31 Dose: 200 mg Documented by: Phenobarbital (Phenobarbital Liquid -) 45 mg GT BID [facility] Last Admin: 11/27/19 09:31 Dose: 45 mg Documented by: Polyethylene Glycol (Miralax (For Daily Use) -) 17 gm GT DAILY [facility] Last Admin: 11/27/19 10:05 Dose: 17 gm Documented by: Senna (Senna Oral Solution -) 8.8 mg PO BID [facility] Last Admin: 11/27/19 09:31 Dose: 8.8 mg Documented by: Sodium Chloride ([place] Nasal [place] -) 2 spray NS BID [facility] Last Admin: 11/27/19 09:32 Dose: 2 spray Documented by: Gen: Mildly tachypneic on NRBM Heart: RRR Lung: Scattered bilateral rhonchi, decreased breath sounds at the bases Abd: soft, nontender Ext: no edema, contracted A/P Acute Hypoxic and Hypercapneic Respiratory Failure Pneumonia likely recurrent aspiration Sepsis Lactic Acidosis Elevated LFTs - continue antibiotics per ID - Wean FiO2 as tolerated - inhaled bronchodilators - keep HOB >30 deg - Aspiration precautions - DVT prophylaxis Dr Price
--- NOTE | 2019-11-27 15:13 | PN ---
Physical Exam: SUBJECTIVE: Patient is a 24 year old male with a past medical history of cerebral palsy, epilepsy, asthma, herpes encephalitis, GT placement, GERD and PNA(06/01/19, requiring ET and ICU admission) who presented to the ED BIBA from [place] for shortness of breath. Patient was found to be hypoxic. CT scan showed LLL infiltrates, along with stool impaction w/ ileus. seen and examined at bedside, awake, not in apparent distress OBJECTIVE: Vital Signs Period Temp Pulse Resp BP Sys/Linares Pulse Ox Last 24 Hr 97.6 F-98.6 F 62-77 20-22 95-110/50-62 94-100 GENERAL: The patient is awake, alert. HEAD: Normal with no signs of trauma. NECK: Trachea midline, supple. LUNGS: Breath sounds equal, Mild diffuse rales bilaterally, no wheezes, no accessory muscle use. HEART: Regular rate and rhythm, S1, S2 without murmur, rub or gallop. ABDOMEN: Soft, nontender, nondistended, normoactive bowel sounds, no guarding, no rebound, no hepatosplenomegaly, no masses. EXTREMITIES: 2+ pulses, warm, well-perfused, no edema. NEUROLOGICAL: contracted in position, unable to participate in neuro- assessment SKIN: Warm, dry, normal turgor, no rashes or lesions noted Active Medications Generic Name Dose Route Start Last Admin Trade Name Freq PRN Reason Stop Dose Admin Acetaminophen 650 mg 11/24/19 00:11 Tylenol - PO Q6H PRN FEVER Acyclovir 400 mg 11/23/19 10:00 11/27/19 09:33 Zovirax Oral Suspension - GT 400 mg BID JORGE Administration Albuterol Sulfate 1 amp 11/24/19 14:18 Ventolin 0.083% Nebulizer Soln - NEB Q4H PRN SHORT OF BREATH/WHEEZING Albuterol Sulfate 2 puff 11/23/19 15:17 Ventolin Hfa Inhaler - IH Q4H PRN SHORTNESS OF BREATH Baclofen 10 mg 11/23/19 10:00 11/27/19 09:32 Lioresal - GT 10 mg BID JORGE Administration Bisacodyl 10 mg 11/22/19 22:19 Dulcolax Suppository - RC HS PRN CONSTIPATION Clobazam 10 mg 11/23/19 22:00 11/26/19 21:51 Onfi - GT 10 mg HS JORGE Administration Clonazepam 1.5 mg 11/23/19 06:00 11/27/19 13:27 Klonopin - GT 1.5 mg TID JORGE Administration Diphenhydramine HCl 25 mg 11/22/19 22:43 Benadryl Oral Solution - GT Q6H PRN ALLERGIES Docusate Sodium 100 mg 11/22/19 22:42 11/27/19 09:31 Colace Liquid - GT 100 mg BID JORGE Administration Enoxaparin Sodium 40 mg 11/24/19 10:00 11/27/19 09:31 Lovenox - SQ 40 mg DAILY JORGE Administration Piperacillin Sod/Tazobactam 50 mls @ 100 mls/hr 11/24/19 02:00 11/27/19 09:31 Sod 3.375 gm/ Dextrose IVPB 100 mls/hr Q8H-IV JORGE Administration Protocol Dextrose/Lactated Ringer's 1,000 mls @ 100 mls/hr 11/25/19 12:00 11/26/19 14:00 D5-Lr - IV 100 mls/hr ASDIR JORGE Administration Lactobacillus Acidophilus 1 tab 11/23/19 22:00 11/26/19 21:51 Bacid - PO 1 tab HS JORGE Administration Lamotrigine 200 mg 11/23/19 10:00 11/27/19 09:31 Lamictal - PO 200 mg BID JORGE Administration Phenobarbital 45 mg 11/23/19 10:00 11/27/19 09:31 Phenobarbital Liquid - GT 45 mg BID JORGE Administration Polyethylene Glycol 17 gm 11/25/19 10:00 11/27/19 10:05 Miralax (For Daily Use) - GT 17 gm DAILY JORGE Administration Senna 8.8 mg 11/23/19 10:00 11/27/19 09:31 Senna Oral Solution - PO 8.8 mg BID JORGE Administration Sodium Chloride 2 spray 11/23/19 10:00 11/27/19 09:32 [place] Nasal [place] - NS 2 spray BID JORGE Administration ASSESSMENT/PLAN: #Acute hypoxic/hypercapneic respiratory failure - Multiple previous admissions with similar episodes - Chest CT consistent with left lower pneumonia. Bilateral interstitial and mild airspace opacities. - Previous sputum cultures positive for Pseudomonas - awaiting today's lab still, monitor Platelets - Albuterol neb prn - RSV positive - COVID negative - Continue D5-LR @ 100 - Keeping HOB > 30 degrees, will try to wean off O2 as tolerated - Lactic acidosis, resolved - Pulmonology consult appreciated. #Fecal impaction w/ileus - still no BM reported - imaging consist with impaction, no ileus - Continue Rectal enemas and Colace #Hx of seizures - Currently asymptomatic - Will continue home meds #Hx of herpes encephalitis - Continue acyclovir 400 BID #DVT PPX - Lovenox 40mg sq daily Discharge Planing Visit type - Emergency Visit Emergency Visit: Yes ED Registration Date: 11/22/19 Care time: The patient presented to the Emergency Department on the above date and was hospitalized for further evaluation of their emergent condition. - New Patient This patient is new to me today: No - Critical Care Critical Care patient: No - Discharge Referral Referred to [facility] No
[2019-11-27 15:16] LABS: BASO % 0.4 % (0-2.0); EOS % 3.1 % (0-4.5); HEMATOCRIT 37.5 % (35.4-49); HEMOGLOBIN 12.8 GM/dL (11.7-16.9); LYMPH % 24.9 % (8-40); MCHC 34.2 g/dl (32.0-35.9); MEAN CELL VOLUME 99.5 fl (80-96); MONO % 9.4 % (3.8-10.2); NEUT % 62.2 % (42.8-82.8); PLATELET COUNT 170 K/MM3 (134-434); RBC 3.77 M/mm3 (4.00-5.60); RDW 15.1 % (11.9-15.9); WHITE BLOOD COUNT 9.8 K/mm3 (4.0-10.0)
[2019-11-27 15:51] LABS: ALBUMIN 2.5 g/dl (3.4-5.0); BILIRUBIN,TOTAL 0.5 mg/dL (0.2-1); CREATININE 0.5 mg/dL (0.55-1.3); MAGNESIUM 1.5 mg/dL (1.8-2.4); POTASSIUM 3.3 mmol/L (3.5-5.1); TOT PROT 6.3 g/dl (6.4-8.2)
[2019-11-27 16:03] LABS: BLOOD UREA NITROGEN 2.1 mg/dL (7-18)
[2019-11-27] MEDS ORDERED: MAGNESIUM SULFATE IN WATER 2 GM/50 ML IVPB IVPB ONE (16:11)
[2019-11-27] MEDS: KCL 10 MEQ IVPB 10 MEQ/100 ML INFUS.BAG IVPB SCH ×2 (18:57→21:07)
[2019-11-27] MEDS: cloBAZam 10 MG TABLET GT SCH (21:07)
[2019-11-27] MEDS: LACTOBACILLUS ACIDOPHILUS 1 TABLET PO SCH (21:07)
[2019-11-28] MEDS ORDERED: PIPERACILLIN/TAZOBACTAM 3.375 GM VIAL IVPB ONE ×3 (01:20→17:55)
[2019-11-28] MEDS ORDERED: DEXTROSE 5%-WATER - 50 ML IVPB ONE ×3 (01:20→17:56)
[2019-11-28] MEDS: PIPERACILLIN/TAZOB 3.375 GM 3.375 GM in DEXTROSE 5%-WATER - 50 ML IVPB SCH ×3 (01:22→18:10)
[2019-11-28] MEDS: clonazePAM 0.5 MG TABLET GT SCH ×3 (07:05→21:41)
[2019-11-28 08:40] LABS: BASO % 0.6 % (0-2.0); EOS % 3.9 % (0-4.5); HEMATOCRIT 40.7 % (35.4-49); HEMOGLOBIN 13.5 GM/dL (11.7-16.9); LYMPH % 29.3 % (8-40); MCH 33.4 pg (25.7-33.7); MCHC 33.3 g/dl (32.0-35.9); MEAN CELL VOLUME 100.3 fl (80-96); MEAN PLT VOLUME 10.3 fl (7.5-11.1); MONO % 9.3 % (3.8-10.2); NEUT % 56.9 % (42.8-82.8); PLATELET COUNT 165 K/MM3 (134-434); RBC 4.06 M/mm3 (4.00-5.60); RDW 15.2 % (11.9-15.9); WHITE BLOOD COUNT 8.1 K/mm3 (4.0-10.0)
[2019-11-28 09:12] LABS: ALBUMIN 2.6 g/dl (3.4-5.0); BILIRUBIN,TOTAL 0.5 mg/dL (0.2-1); BLOOD UREA NITROGEN 3.4 mg/dL (7-18); CALCIUM 8.4 mg/dL (8.5-10.1); CREATININE 0.6 mg/dL (0.55-1.3); POTASSIUM 3.7 mmol/L (3.5-5.1); TOT PROT 6.6 g/dl (6.4-8.2)
[2019-11-28] MEDS ORDERED: PT OWN MED DRAWER 7, Y5N ONE ×2 (10:04→20:57)
[2019-11-28] MEDS: PHENobarbital 20 MG/5 ML UNIT-DOSE CUP GT SCH ×2 (10:06→21:40)
[2019-11-28] MEDS: ENOXAPARIN NA (PORCINE) 40 MG/0.4 ML DISP.SYRIN SQ SCH (10:06)
[2019-11-28] MEDS: lamoTRIgine 100 MG TABLET PO SCH ×2 (10:07→21:42)
[2019-11-28] MEDS: BACLOFEN 10 MG TABLET (FP) GT SCH ×2 (10:07→21:41)
[2019-11-28] MEDS: SENNOSIDES 8.8 MG/5 ML BULK BOTTLE PO SCH ×2 (10:07→21:40)
[2019-11-28] MEDS: DOCUSATE NA 100 MG/10 ML UNIT-DOSE CUPS GT SCH ×2 (10:07→21:42)
[2019-11-28] MEDS: ACYCLOVIR 200 MG/5 ML LIQUID GT SCH ×2 (10:08→21:40)
[2019-11-28] MEDS: POLYETHYLENE GLYCOL 3350 119 GM BTL GT SCH (10:08)
[2019-11-28] MEDS: SODIUM CHLORIDE NASAL SPRAY 44 ML BOTTLE NS SCH ×2 (10:09→21:42)
--- NOTE | 2019-11-28 12:23 | PN ---
Progress Note (short form) - Note Progress Note: Patient nonverbal. Weaned to 50% VM and saturation 97%. No acute events overnight. Intake & Output 11/25/19 11/26/19 11/27/19 11/28/19 23:59 23:59 23:59 23:59 Intake Total 2050 2400 Output Total 2600 2100 2600 1300 Balance -2600 -50 -200 -1300 Gen: Awake, NAD on 50% VM O2 Heart: RRR Lung: Scattered bilateral rhonchi, decreased breath sounds at the bases Abd: soft, nontender Ext: no edema, contracted Laboratory Results - last 24 hr 11/27/19 11/27/19 11/28/19 14:44 14:44 07:20 WBC 9.8 8.1 RBC 3.77 L 4.06 Hgb 12.8 13.5 Hct 37.5 40.7 MCV 99.5 H 100.3 H MCH 34.0 H 33.4 MCHC 34.2 33.3 RDW 15.1 15.2 Plt Count 170 165 MPV 10.0 10.3 Absolute Neuts (auto) 6.1 4.6 Neutrophils % 62.2 D 56.9 Lymphocytes % 24.9 D 29.3 Monocytes % 9.4 9.3 Eosinophils % 3.1 3.9 Basophils % 0.4 0.6 Nucleated RBC % 0 0 Sodium 144 Potassium 3.3 L Chloride 108 H Carbon Dioxide 30 Anion Gap 6 L BUN 2.1 L* Creatinine 0.5 L Est GFR (CKD-EPI)AfAm 177.03 Est GFR (CKD-EPI)NonAf 152.75 Random Glucose 116 H Calcium 8.0 L Magnesium 1.5 L Total Bilirubin 0.5 AST 42 H ALT 54 Alkaline Phosphatase 243 H Total Protein 6.3 L Albumin 2.5 L 11/28/19 07:20 WBC RBC Hgb Hct MCV MCH MCHC RDW Plt Count MPV Absolute Neuts (auto) Neutrophils % Lymphocytes % Monocytes % Eosinophils % Basophils % Nucleated RBC % Sodium 143 Potassium 3.7 Chloride 108 H Carbon Dioxide 30 Anion Gap 5 L BUN 3.4 L Creatinine 0.6 Est GFR (CKD-EPI)AfAm 164.25 Est GFR (CKD-EPI)NonAf 141.72 Random Glucose 102 Calcium 8.4 L Magnesium Total Bilirubin 0.5 AST 48 H ALT 60 Alkaline Phosphatase 247 H Total Protein 6.6 Albumin 2.6 L A/P Acute Hypoxic and Hypercapneic Respiratory Failure Pneumonia likely recurrent aspiration Sepsis Lactic Acidosis Elevated LFTs - continue antibiotics per ID - Wean FiO2 as tolerated - inhaled bronchodilators - keep HOB >30 deg - Aspiration precautions - DVT prophylaxis Dr Price
--- NOTE | 2019-11-28 14:06 | PN ---
Progress Note (short form) - Note Progress Note: stable, no distress wearing ventimask again today, nrb for the weekend nonverbal Vital Signs Period Temp Pulse Resp BP Sys/Linares Pulse Ox Last 24 Hr 98.4 F-99.7 F 76-82 20-20 95-98/42-58 95-100 cor-rrr llungs decreased bs at bases abd soft, +GT ext contracted CBC, BMP 11/28/19 07:20 11/28/19 07:20 Microbiology 11/22/19 13:53 Blood - Peripheral Venous Blood Culture - Final NO GROWTH AFTER 5 DAYS INCUBATION 11/22/19 12:55 Blood - Peripheral Venous Blood Culture - Final NO GROWTH AFTER 5 DAYS INCUBATION 11/23/19 17:20 Nares - [place] Screen - Right MRSA Screen - Final NO MRSA ISOLATED 11/23/19 17:20 Nares - Mrsa Screen - Left MRSA Screen - Final NO MRSA ISOLATED 11/24/19 03:05 Urine For Antigen Detection Legionella Antigen - Final 11/24/19 03:05 Urine For Antigen Detection Streptococcus pneumoniae Antigen (M - Final 11/22/19 20:20 Urine - Urine Lane Urine Culture - Final NO GROWTH OBTAINED IMP/RECCD probable aspiration pneumonia continue zosyn day #6 of 7 +rsv antigen noted -contact isolation multiple disabilities abnl lfts-improved repeat cxray
--- NOTE | 2019-11-28 18:00 | PN ---
Physical Exam: SUBJECTIVE: Patient seen and examined. No acute events overnight. Patient reported to have large bowel movement yesterday. OBJECTIVE: Vital Signs Temperature 96.7 F L 11/28/19 17:05 Pulse Rate 88 11/28/19 17:05 Respiratory Rate 20 11/28/19 17:05 Blood Pressure 101/59 L 11/28/19 17:05 O2 Sat by Pulse Oximetry (%) 96 11/28/19 17:05 GENERAL: The patient is awake, alert, nonverbal, on nonrebreather NECK: supple. EARS, NOSE, THROAT:ears normal, nares patent, oropharynx clear. NECK: Normal range of motion, supple LUNGS: Scattered rhonchi bilaterally HEART: Regular rate and rhythm, normal S1 and S2 ABDOMEN: Soft, nontender, not distended, normoactive bowel sounds LOWER EXTREMITIES: 2+ pulses, warm, well-perfused. No peripheral edema. SKIN: Warm, dry, normal turgor Laboratory Results - last 24 hr 11/28/19 11/28/19 07:20 07:20 WBC 8.1 RBC 4.06 Hgb 13.5 Hct 40.7 MCV 100.3 H MCH 33.4 MCHC 33.3 RDW 15.2 Plt Count 165 MPV 10.3 Absolute Neuts (auto) 4.6 Neutrophils % 56.9 Lymphocytes % 29.3 Monocytes % 9.3 Eosinophils % 3.9 Basophils % 0.6 Nucleated RBC % 0 Sodium 143 Potassium 3.7 Chloride 108 H Carbon Dioxide 30 Anion Gap 5 L BUN 3.4 L Creatinine 0.6 Est GFR (CKD-EPI)AfAm 164.25 Est GFR (CKD-EPI)NonAf 141.72 Random Glucose 102 Calcium 8.4 L Total Bilirubin 0.5 AST 48 H ALT 60 Alkaline Phosphatase 247 H Total Protein 6.6 Albumin 2.6 L Active Medications Generic Name Dose Route Start Last Admin Trade Name Freq PRN Reason Stop Dose Admin Acetaminophen 650 mg 11/24/19 00:11 11/27/19 21:08 Tylenol - PO 650 mg Q6H PRN Administration FEVER Acyclovir 400 mg 11/23/19 10:00 11/28/19 10:08 Zovirax Oral Suspension - GT 400 mg BID JORGE Administration Albuterol Sulfate 1 amp 11/24/19 14:18 Ventolin 0.083% Nebulizer Soln - NEB Q4H PRN SHORT OF BREATH/WHEEZING Albuterol Sulfate 2 puff 11/23/19 15:17 Ventolin Hfa Inhaler - IH Q4H PRN SHORTNESS OF BREATH Baclofen 10 mg 11/23/19 10:00 11/28/19 10:07 Lioresal - GT 10 mg BID JORGE Administration Bisacodyl 10 mg 11/22/19 22:19 Dulcolax Suppository - RC HS PRN CONSTIPATION Clobazam 10 mg 11/23/19 22:00 11/27/19 21:07 Onfi - GT 10 mg HS JORGE Administration Clonazepam 1.5 mg 11/23/19 06:00 11/28/19 14:13 Klonopin - GT 1.5 mg TID JORGE Administration Diphenhydramine HCl 25 mg 11/22/19 22:43 Benadryl Oral Solution - GT Q6H PRN ALLERGIES Docusate Sodium 100 mg 11/22/19 22:42 11/28/19 10:07 Colace Liquid - GT 100 mg BID JORGE Administration Enoxaparin Sodium 40 mg 11/24/19 10:00 11/28/19 10:06 Lovenox - SQ 40 mg DAILY JORGE Administration Piperacillin Sod/Tazobactam 50 mls @ 100 mls/hr 11/24/19 02:00 11/28/19 10:07 Sod 3.375 gm/ Dextrose IVPB 100 mls/hr Q8H-IV JORGE Administration Protocol Lactobacillus Acidophilus 1 tab 11/23/19 22:00 11/27/19 21:07 Bacid - PO 1 tab HS JORGE Administration Lamotrigine 200 mg 11/23/19 10:00 11/28/19 10:07 Lamictal - PO 200 mg BID JORGE Administration Phenobarbital 45 mg 11/23/19 10:00 11/28/19 10:06 Phenobarbital Liquid - GT 45 mg BID JORGE Administration Polyethylene Glycol 17 gm 11/25/19 10:00 11/28/19 10:08 Miralax (For Daily Use) - GT 17 gm DAILY JORGE Administration Senna 8.8 mg 11/23/19 10:00 11/28/19 10:07 Senna Oral Solution - PO 8.8 mg BID JORGE Administration Sodium Chloride 2 spray 11/23/19 10:00 11/28/19 10:09 [place] Nasal [place] - NS 2 spray BID JORGE Administration ASSESSMENT/PLAN: Patient is a 24 year old male with a past medical history of cerebral palsy, epilepsy, asthma, herpes encephalitis, GT placement, GERD and PNA(06/01/19, requiring ET and ICU admission) who presented to the ED [facility] from [place] for shortness of breath. Patient was found to be hypoxic. CT scan showed LLL infiltrates, along with stool impaction w/ ileus. #Acute hypoxic respiratory failure likely 2/2 to aspiration pneumonia - Multiple previous admissions with similar episodes - Chest CT consistent with left lower pneumonia. Bilateral interstitial and mild airspace opacities. - Previous sputum cultures positive for Pseudomonas - Patient on Zosyn 3.375 gm q8h day 6 - MRSA screen negative, d/c vancomycin - Supplemental O2 to keep SpO2 >90%, wean oxygen as tolerated - Albuterol neb prn - f/u with sputum culture - blood culture, and urine culture no growth to date - urine legionella/pneumoniae negative - RSV positive, flu negative - COVID negative - Keeping HOB > 30 degrees - Lactic acidosis, resolved - Pulmonology (Dr. Schmid) consulted. Recommendations appreciated. #Sepsis 2/2 pneumonia - lactic acidosis resolved. - on Zosyn 3.375 gm q8h - cultures no growth to date - RSV positive - covid not detected - MRSA screen negative, vancomycin discontinued - ID (Dr. Rosenthal) consulted. REcommendations appreciated. #Fecal impaction w/ileus - BM reported yesterday - KUB (11/23): some improvement since prior study. Colonic ileus vs mild distal obstruction due to distal stool. No free air. - Continue Rectal enemas and Colace #Transaminitis - Liver enzymes trending down - Patient has had elevated liver enzymes upon previous admissions - will continue Phenobarb for now, Seizure prevention. - Will continue to trend LFTs - RUQ showed borderline hepatomegaly with likely mild fatty infiltration #Hx of seizures - Currently asymptomatic - Will continue home meds #Hx of herpes encephalitis - Continue acyclovir 400 BID #FEN - Not on any standing fluids - routine bmp monitoring - Promote tube feeds #DVT PPX - Lovenox 40mg sq daily #Disposition: - full code - med surg Visit type - Emergency Visit Emergency Visit: Yes ED Registration Date: 11/22/19 Care time: The patient presented to the Emergency Department on the above date and was hospitalized for further evaluation of their emergent condition. - New Patient This patient is new to me today: No - Critical Care Critical Care patient: No ATTENDING PHYSICIAN STATEMENT I saw and evaluated the patient. I reviewed the resident's note and discussed the case with the resident. I agree with the resident's findings and plan as documented. SUBJECTIVE: OBJECTIVE: ASSESSMENT AND PLAN:
--- NOTE | 2019-11-28 18:34 | PN ---
Teaching Attending Note Name of Resident: Hallie Guillen ATTENDING PHYSICIAN STATEMENT I saw and evaluated the patient. I reviewed the resident's note and discussed the case with the resident. I agree with the resident's findings and plan as documented. SUBJECTIVE: Patient seen and examined at bedside, still on NRB O2, on abx for PNA/UTI/RSV+, VSS. OBJECTIVE: GENERAL: patient resting comfortably, breathing less labored, deconditioned HEENT NC/AT, EOMI, neck supple, dry MM LUNGS: Coarse/distant breath sounds bilaterally, poor inspiratory effort, no accessory M use HEART: Regular rate and rhythm, normal S1 and S2 without murmur, rub or gallop. ABDOMEN: Soft, nontender, not distended, normoactive bowel sounds JUDY: no hemorrhoids, no masses, normal rectal tone, no stool on rectal vault LOWER EXTREMITIES: 2+ pulses, warm, well-perfused. No peripheral edema. contracted extremities SKIN: Warm, dry, normal turgor Vital Signs - 24 hr Vital Signs - 24 hr 11/27/19 11/27/19 11/28/19 20:11 21:00 00:00 Temperature 99.7 F H Pulse Rate 80 Respiratory 20 Rate Blood Pressure 95/50 L O2 Sat by Pulse 98 98 100 Oximetry (%) 11/28/19 11/28/19 11/28/19 07:19 08:00 09:00 Temperature 98.4 F Pulse Rate 76 Respiratory 20 Rate Blood Pressure 98/58 L O2 Sat by Pulse 96 97 97 Oximetry (%) 11/28/19 11/28/19 11/28/19 15:32 16:00 17:05 Temperature 97.6 F 96.7 F L Pulse Rate 54 L 88 Respiratory 20 20 Rate Blood Pressure 82/39 L 101/59 L O2 Sat by Pulse 98 96 96 Oximetry (%) Microbiology 11/22/19 13:53 Blood - Peripheral Venous Blood Culture - Final NO GROWTH AFTER 5 DAYS INCUBATION 11/22/19 12:55 Blood - Peripheral Venous Blood Culture - Final NO GROWTH AFTER 5 DAYS INCUBATION 11/23/19 17:20 Nares - [place] Screen - Right MRSA Screen - Final NO MRSA ISOLATED 11/23/19 17:20 Nares - [place] Screen - Left MRSA Screen - Final NO MRSA ISOLATED 11/24/19 03:05 Urine For Antigen Detection Legionella Antigen - Final 11/24/19 03:05 Urine For Antigen Detection Streptococcus pneumoniae Antigen (M - Final 11/22/19 20:20 Urine - Urine Lane Urine Culture - Final NO GROWTH OBTAINED Laboratory Results - last 24 hr 11/28/19 11/28/19 07:20 07:20 WBC 8.1 RBC 4.06 Hgb 13.5 Hct 40.7 MCV 100.3 H MCH 33.4 MCHC 33.3 RDW 15.2 Plt Count 165 MPV 10.3 Absolute Neuts (auto) 4.6 Neutrophils % 56.9 Lymphocytes % 29.3 Monocytes % 9.3 Eosinophils % 3.9 Basophils % 0.6 Nucleated RBC % 0 Sodium 143 Potassium 3.7 Chloride 108 H Carbon Dioxide 30 Anion Gap 5 L BUN 3.4 L Creatinine 0.6 Est GFR (CKD-EPI)AfAm 164.25 Est GFR (CKD-EPI)NonAf 141.72 Random Glucose 102 Calcium 8.4 L Total Bilirubin 0.5 AST 48 H ALT 60 Alkaline Phosphatase 247 H Total Protein 6.6 Albumin 2.6 L Home Medications Medication Instructions Recorded Acyclovir 400 mg GT BID 04/25/17 Baclofen 10 mg GT BID 04/25/17 Clobazam [Onfi -] 10 mg GT HS 04/25/17 Clonazepam 1.5 mg GT TID 04/25/17 Lamotrigine 200 mg GT BID 04/25/17 Multivitamin [Poly-Vitamin] 1 each GT HS 04/25/17 Phenobarbital 48.6 mg GT BID 04/25/17 Diazepam Rectal Gel [Diastat 7.5 mg MD PRN PRN 05/23/18 Rectal Gel -] Protein Supplement [Promod] 1,190 ml GT DAILY 05/23/18 Budesonide [Pulmicort 0.25 mg 1 neb IH BID 02/05/19 Nebulizer -] Fluticasone Prop 0.05% Nasal 2 spray NS AM 02/05/19 [Flonase -] Magnesium Hydrox 2400MG/30Ml [Milk 20 ml GT BID 02/05/19 of Magnesia -] Albuterol 2.5/Ipratropium 0.5 1 neb IH QID PRN #30 neb 02/14/19 [Duoneb -] Sodium Chloride/Aloe Vera [[place] 22 ml NS BID 06/01/19 Saline Nasal Gel [place]] Bisacodyl 10 mg RC PRN PRN 11/22/19 Diphenhydramine [Benadryl Oral 25 mg PO Q6H PRN 11/22/19 Solution -] Famotidine 10 mg PO BID 11/22/19 Lactobacillus Acidophilus 1 each PO HS 11/22/19 [Acidophilus] Simethicone Liquid [Mylicon] 40 mg PO QID PRN 11/22/19 Current Medications Generic Name Dose Route Start Last Admin Trade Name Freq PRN Reason Stop Dose Admin Acetaminophen 650 mg 11/24/19 00:11 11/27/19 21:08 Tylenol - PO 650 mg Q6H PRN Administration FEVER Acyclovir 400 mg 11/23/19 10:00 11/28/19 10:08 Zovirax Oral Suspension - GT 400 mg BID JORGE Administration Albuterol Sulfate 1 amp 11/24/19 14:18 Ventolin 0.083% Nebulizer Soln - NEB Q4H PRN SHORT OF BREATH/WHEEZING Albuterol Sulfate 2 puff 11/23/19 15:17 Ventolin Hfa Inhaler - IH Q4H PRN SHORTNESS OF BREATH Baclofen 10 mg 11/23/19 10:00 11/28/19 10:07 Lioresal - GT 10 mg BID JORGE Administration Bisacodyl 10 mg 11/22/19 22:19 Dulcolax Suppository - RC HS PRN CONSTIPATION Clobazam 10 mg 11/23/19 22:00 11/27/19 21:07 Onfi - GT 10 mg HS JORGE Administration Clonazepam 1.5 mg 11/23/19 06:00 11/28/19 14:13 Klonopin - GT 1.5 mg TID JORGE Administration Diphenhydramine HCl 25 mg 11/22/19 22:43 Benadryl Oral Solution - GT Q6H PRN ALLERGIES Docusate Sodium 100 mg 11/22/19 22:42 11/28/19 10:07 Colace Liquid - GT 100 mg BID JORGE Administration Enoxaparin Sodium 40 mg 11/24/19 10:00 11/28/19 10:06 Lovenox - SQ 40 mg DAILY JORGE Administration Piperacillin Sod/Tazobactam 50 mls @ 100 mls/hr 11/24/19 02:00 11/28/19 18:10 Sod 3.375 gm/ Dextrose IVPB 100 mls/hr Q8H-IV JORGE Administration Protocol Lactobacillus Acidophilus 1 tab 11/23/19 22:00 11/27/19 21:07 Bacid - PO 1 tab HS JORGE Administration Lamotrigine 200 mg 11/23/19 10:00 11/28/19 10:07 Lamictal - PO 200 mg BID JORGE Administration Phenobarbital 45 mg 11/23/19 10:00 11/28/19 10:06 Phenobarbital Liquid - GT 45 mg BID JORGE Administration Polyethylene Glycol 17 gm 11/25/19 10:00 11/28/19 10:08 Miralax (For Daily Use) - GT 17 gm DAILY JORGE Administration Senna 8.8 mg 11/23/19 10:00 11/28/19 10:07 Senna Oral Solution - PO 8.8 mg BID JORGE Administration Sodium Chloride 2 spray 11/23/19 10:00 11/28/19 10:09 [place] Nasal [place] - NS 2 spray BID JORGE Administration ASSESSMENT AND PLAN: 24 M UTI PNA Sepsis RSV+ Seizure disorder MR Non-verbal Non-communicative Bed bound Deconditioned Plan: Cont. Vanco/Zosyn with adjustment of dose via troughs IVF, supplement O2 to keep >95% Cont. seizure meds follow cultures ID following Pulmonary following DVT ppx: Lovenox Will need Palliative discussion for GOC
--- NOTE | 2019-11-28 18:37 | PN ---
Teaching Attending Note Name of Resident: Hallie Guillen ATTENDING PHYSICIAN STATEMENT I saw and evaluated the patient. I reviewed the resident's note and discussed the case with the resident. I agree with the resident's findings and plan as documented. SUBJECTIVE: Patient seen and examined at bedside, improving O2 requirements, still on ABX for UTI/PNA, moving bowels, overall grim prognosis, once down to [place] O2 will DC back to SNF. COVID negative. VSS. OBJECTIVE: GENERAL: patient resting comfortably, breathing less labored, deconditioned HEENT NC/AT, EOMI, neck supple, dry MM LUNGS: Coarse/distant breath sounds bilaterally, poor inspiratory effort, no accessory M use HEART: Regular rate and rhythm, normal S1 and S2 without murmur, rub or gallop. ABDOMEN: Soft, nontender, not distended, normoactive bowel sounds JUDY: no hemorrhoids, no masses, normal rectal tone, no stool on rectal vault LOWER EXTREMITIES: 2+ pulses, warm, well-perfused. No peripheral edema. contracted extremities SKIN: Warm, dry, normal turgor Vital Signs - 24 hr Vital Signs - 24 hr 11/27/19 11/27/19 11/28/19 20:11 21:00 00:00 Temperature 99.7 F H Pulse Rate 80 Respiratory 20 Rate Blood Pressure 95/50 L O2 Sat by Pulse 98 98 100 Oximetry (%) 11/28/19 11/28/19 11/28/19 07:19 08:00 09:00 Temperature 98.4 F Pulse Rate 76 Respiratory 20 Rate Blood Pressure 98/58 L O2 Sat by Pulse 96 97 97 Oximetry (%) 11/28/19 11/28/19 11/28/19 15:32 16:00 17:05 Temperature 97.6 F 96.7 F L Pulse Rate 54 L 88 Respiratory 20 20 Rate Blood Pressure 82/39 L 101/59 L O2 Sat by Pulse 98 96 96 Oximetry (%) Microbiology 11/22/19 13:53 Blood - Peripheral Venous Blood Culture - Final NO GROWTH AFTER 5 DAYS INCUBATION 11/22/19 12:55 Blood - Peripheral Venous Blood Culture - Final NO GROWTH AFTER 5 DAYS INCUBATION 11/23/19 17:20 Nares - Mrsa Screen - Right MRSA Screen - Final NO MRSA ISOLATED 11/23/19 17:20 Nares - Mrsa Screen - Left MRSA Screen - Final NO MRSA ISOLATED 11/24/19 03:05 Urine For Antigen Detection Legionella Antigen - Final 11/24/19 03:05 Urine For Antigen Detection Streptococcus pneumoniae Antigen (M - Final 11/22/19 20:20 Urine - Urine Lane Urine Culture - Final NO GROWTH OBTAINED Laboratory Results - last 24 hr 11/28/19 11/28/19 07:20 07:20 WBC 8.1 RBC 4.06 Hgb 13.5 Hct 40.7 MCV 100.3 H MCH 33.4 MCHC 33.3 RDW 15.2 Plt Count 165 MPV 10.3 Absolute Neuts (auto) 4.6 Neutrophils % 56.9 Lymphocytes % 29.3 Monocytes % 9.3 Eosinophils % 3.9 Basophils % 0.6 Nucleated RBC % 0 Sodium 143 Potassium 3.7 Chloride 108 H Carbon Dioxide 30 Anion Gap 5 L BUN 3.4 L Creatinine 0.6 Est GFR (CKD-EPI)AfAm 164.25 Est GFR (CKD-EPI)NonAf 141.72 Random Glucose 102 Calcium 8.4 L Total Bilirubin 0.5 AST 48 H ALT 60 Alkaline Phosphatase 247 H Total Protein 6.6 Albumin 2.6 L Home Medications Medication Instructions Recorded Acyclovir 400 mg GT BID 04/25/17 Baclofen 10 mg GT BID 04/25/17 Clobazam [Onfi -] 10 mg GT HS 04/25/17 Clonazepam 1.5 mg GT TID 04/25/17 Lamotrigine 200 mg GT BID 04/25/17 Multivitamin [Poly-Vitamin] 1 each GT HS 04/25/17 Phenobarbital 48.6 mg GT BID 04/25/17 Diazepam Rectal Gel [Diastat 7.5 mg RI PRN PRN 05/23/18 Rectal Gel -] Protein Supplement [Promod] 1,190 ml GT DAILY 05/23/18 Budesonide [Pulmicort 0.25 mg 1 neb IH BID 02/05/19 Nebulizer -] Fluticasone Prop 0.05% Nasal 2 spray NS AM 02/05/19 [Flonase -] Magnesium Hydrox 2400MG/30Ml [Milk 20 ml GT BID 02/05/19 of Magnesia -] Albuterol 2.5/Ipratropium 0.5 1 neb IH QID PRN #30 neb 02/14/19 [Duoneb -] Sodium Chloride/Aloe Vera [Reserve 22 ml NS BID 06/01/19 Saline Nasal Gel Siler] Bisacodyl 10 mg RC PRN PRN 11/22/19 Diphenhydramine [Benadryl Oral 25 mg PO Q6H PRN 11/22/19 Solution -] Famotidine 10 mg PO BID 11/22/19 Lactobacillus Acidophilus 1 each PO HS 11/22/19 [Acidophilus] Simethicone Liquid [Mylicon] 40 mg PO QID PRN 11/22/19 Current Medications Generic Name Dose Route Start Last Admin Trade Name Freq PRN Reason Stop Dose Admin Acetaminophen 650 mg 11/24/19 00:11 11/27/19 21:08 Tylenol - PO 650 mg Q6H PRN Administration FEVER Acyclovir 400 mg 11/23/19 10:00 11/28/19 10:08 Zovirax Oral Suspension - GT 400 mg BID JORGE Administration Albuterol Sulfate 1 amp 11/24/19 14:18 Ventolin 0.083% Nebulizer Soln - NEB Q4H PRN SHORT OF BREATH/WHEEZING Albuterol Sulfate 2 puff 11/23/19 15:17 Ventolin Hfa Inhaler - IH Q4H PRN SHORTNESS OF BREATH Baclofen 10 mg 11/23/19 10:00 11/28/19 10:07 Lioresal - GT 10 mg BID JORGE Administration Bisacodyl 10 mg 11/22/19 22:19 Dulcolax Suppository - RC HS PRN CONSTIPATION Clobazam 10 mg 11/23/19 22:00 11/27/19 21:07 Onfi - GT 10 mg HS JORGE Administration Clonazepam 1.5 mg 11/23/19 06:00 11/28/19 14:13 Klonopin - GT 1.5 mg TID JORGE Administration Diphenhydramine HCl 25 mg 11/22/19 22:43 Benadryl Oral Solution - GT Q6H PRN ALLERGIES Docusate Sodium 100 mg 11/22/19 22:42 11/28/19 10:07 Colace Liquid - GT 100 mg BID JORGE Administration Enoxaparin Sodium 40 mg 11/24/19 10:00 11/28/19 10:06 Lovenox - SQ 40 mg DAILY JORGE Administration Piperacillin Sod/Tazobactam 50 mls @ 100 mls/hr 11/24/19 02:00 11/28/19 18:10 Sod 3.375 gm/ Dextrose IVPB 100 mls/hr Q8H-IV JORGE Administration Protocol Lactobacillus Acidophilus 1 tab 11/23/19 22:00 11/27/19 21:07 Bacid - PO 1 tab HS JORGE Administration Lamotrigine 200 mg 11/23/19 10:00 11/28/19 10:07 Lamictal - PO 200 mg BID JORGE Administration Phenobarbital 45 mg 11/23/19 10:00 11/28/19 10:06 Phenobarbital Liquid - GT 45 mg BID JORGE Administration Polyethylene Glycol 17 gm 11/25/19 10:00 11/28/19 10:08 Miralax (For Daily Use) - GT 17 gm DAILY JORGE Administration Senna 8.8 mg 11/23/19 10:00 11/28/19 10:07 Senna Oral Solution - PO 8.8 mg BID JORGE Administration Sodium Chloride 2 spray 11/23/19 10:00 11/28/19 10:09 [place] Nasal [place] - NS 2 spray BID JORGE Administration ASSESSMENT AND PLAN: 24 M UTI PNA Sepsis RSV+ Seizure disorder MR Non-verbal Non-communicative Bed bound Deconditioned Plan: Cont. Vanco/Zosyn with adjustment of dose via troughs Cont. anti-seizure medications, soft BP, IV bolus as needed IVF, supplement O2 to keep >95%, titrate down to NC as tolerated follow cultures ID following Pulmonary following DVT ppx: Lovenox
[2019-11-28] MEDS: LACTOBACILLUS ACIDOPHILUS 1 TABLET PO SCH (21:41)
[2019-11-28] MEDS: cloBAZam 10 MG TABLET GT SCH (21:41)
[2019-11-29] MEDS ORDERED: PIPERACILLIN/TAZOBACTAM 3.375 GM VIAL IVPB ONE ×3 (01:04→17:11)
[2019-11-29] MEDS ORDERED: DEXTROSE 5%-WATER - 50 ML IVPB ONE ×3 (01:05→17:11)
[2019-11-29] MEDS: PIPERACILLIN/TAZOB 3.375 GM 3.375 GM in DEXTROSE 5%-WATER - 50 ML IVPB SCH ×3 (01:34→17:26)
[2019-11-29] MEDS: clonazePAM 0.5 MG TABLET GT SCH ×3 (05:44→21:50)
[2019-11-29 08:51] LABS: BASO % 0.4 % (0-2.0); EOS % 4.8 % (0-4.5); HEMATOCRIT 40.4 % (35.4-49); HEMOGLOBIN 13.8 GM/dL (11.7-16.9); LYMPH % 21.9 % (8-40); MCH 34.3 pg (25.7-33.7); MCHC 34.1 g/dl (32.0-35.9); MEAN CELL VOLUME 100.7 fl (80-96); MEAN PLT VOLUME 9.8 fl (7.5-11.1); MONO % 8.6 % (3.8-10.2); NEUT % 64.3 % (42.8-82.8); PLATELET COUNT 186 K/MM3 (134-434); RBC 4.01 M/mm3 (4.00-5.60); RDW 15.2 % (11.9-15.9); WHITE BLOOD COUNT 8.6 K/mm3 (4.0-10.0)
[2019-11-29] MEDS: SENNOSIDES 8.8 MG/5 ML BULK BOTTLE PO SCH (09:05)
[2019-11-29] MEDS: POLYETHYLENE GLYCOL 3350 119 GM BTL GT SCH (09:05)
[2019-11-29] MEDS: DOCUSATE NA 100 MG/10 ML UNIT-DOSE CUPS GT SCH ×3 (09:05→22:11)
[2019-11-29 09:27] LABS: ALBUMIN 2.8 g/dl (3.4-5.0); BILIRUBIN,TOTAL 0.4 mg/dL (0.2-1); BLOOD UREA NITROGEN 5.6 mg/dL (7-18); CALCIUM 8.6 mg/dL (8.5-10.1); CREATININE 0.5 mg/dL (0.55-1.3); MAGNESIUM 1.8 mg/dL (1.8-2.4); POTASSIUM 3.5 mmol/L (3.5-5.1); TOT PROT 6.8 g/dl (6.4-8.2)
[2019-11-29] MEDS ORDERED: PT OWN MED DRAWER 7, Y5N ONE ×2 (10:14→21:45)
[2019-11-29] MEDS: PHENobarbital 20 MG/5 ML UNIT-DOSE CUP GT SCH ×2 (10:18→21:52)
[2019-11-29] MEDS: ENOXAPARIN NA (PORCINE) 40 MG/0.4 ML DISP.SYRIN SQ SCH (10:19)
[2019-11-29] MEDS: lamoTRIgine 100 MG TABLET PO SCH (10:19)
[2019-11-29] MEDS: BACLOFEN 10 MG TABLET (FP) GT SCH ×2 (10:19→21:51)
[2019-11-29] MEDS: ACYCLOVIR 200 MG/5 ML LIQUID GT SCH ×2 (10:19→21:52)
[2019-11-29] MEDS: SODIUM CHLORIDE NASAL SPRAY 44 ML BOTTLE NS SCH ×2 (10:20→21:53)
[2019-11-29] MEDS ORDERED: ACETAMINOPHEN 650 MG/20.3 ML ORAL SOLUTION (CUPS) GT PRN (11:50)
[2019-11-29] MEDS ORDERED: LACTOBACILLUS ACIDOPHILUS 1 TABLET GT SCH (11:51)
--- NOTE | 2019-11-29 12:05 | PN ---
Progress Note (short form) - Note Progress Note: Patient nonverbal. NAD on 2 L NC O2. No acute events overnight. Intake & Output 11/26/19 11/27/19 11/28/19 11/29/19 23:59 23:59 23:59 23:59 Intake Total 0 2400 940 450 Output Total 2100 2600 3000 900 Balance -50 -200 -2060 -450 Last Vital Signs Temp Pulse Resp BP Pulse Ox 97.3 F L 90 22 H 106/64 96 11/29/19 10:00 11/29/19 11:34 11/29/19 11:34 11/29/19 11:34 11/29/19 11:35 Active Medications Acetaminophen (Tylenol Oral Solution -) 650 mg GT Q6H PRN PRN Reason: FEVER Acyclovir (Zovirax Oral Suspension -) 400 mg GT BID [facility] Last Admin: 11/29/19 10:19 Dose: 400 mg Documented by: Albuterol Sulfate (Ventolin 0.083% Nebulizer Soln -) 1 amp NEB Q4H PRN PRN Reason: SHORT OF BREATH/WHEEZING Albuterol Sulfate (Ventolin Hfa Inhaler -) 2 puff IH Q4H PRN PRN Reason: SHORTNESS OF BREATH Baclofen (Lioresal -) 10 mg GT BID [facility] Last Admin: 11/29/19 10:19 Dose: 10 mg Documented by: Bisacodyl (Dulcolax Suppository -) 10 mg RC HS PRN PRN Reason: CONSTIPATION Clobazam (Onfi -) 10 mg GT HS [facility] Last Admin: 11/28/19 21:41 Dose: 10 mg Documented by: Clonazepam (Klonopin -) 1.5 mg GT TID [facility] Last Admin: 11/29/19 05:44 Dose: 1.5 mg Documented by: Diphenhydramine HCl (Benadryl Oral Solution -) 25 mg GT Q6H PRN PRN Reason: ALLERGIES Docusate Sodium (Colace Liquid -) 100 mg GT BID [facility] Last Admin: 11/29/19 09:05 Dose: Not Given Documented by: Enoxaparin Sodium (Lovenox -) 40 mg SQ DAILY [facility] Last Admin: 11/29/19 10:19 Dose: 40 mg Documented by: Piperacillin Sod/Tazobactam (Sod 3.375 gm/ Dextrose) 50 mls @ 100 mls/hr IVPB Q8H-IV JORGE; Protocol Last Admin: 11/29/19 10:19 Dose: 100 mls/hr Documented by: Lactobacillus Acidophilus (Bacid -) 1 tab GT HS JORGE Lamotrigine (Lamictal -) 200 mg GT BID JORGE Phenobarbital (Phenobarbital Liquid -) 45 mg GT BID JORGE Last Admin: 11/29/19 10:18 Dose: 45 mg Documented by: Polyethylene Glycol (Miralax (For Daily Use) -) 17 gm GT DAILY [facility] Last Admin: 11/29/19 09:05 Dose: Not Given Documented by: Senna (Senna Oral Solution -) 8.8 mg GT BID JORGE Sodium Chloride ([place] Nasal [place] -) 2 spray NS BID [facility] Last Admin: 11/29/19 10:20 Dose: 2 spray Documented by: Gen: Awake, NAD on 2 L NC O2 Heart: RRR Lung: Few scattered bilateral rhonchi, decreased breath sounds at the bases Abd: soft, nontender Ext: no edema, contracted Laboratory Results - last 24 hr 11/29/19 11/29/19 08:27 08:27 WBC 8.6 RBC 4.01 Hgb 13.8 Hct 40.4 MCV 100.7 H MCH 34.3 H MCHC 34.1 RDW 15.2 Plt Count 186 MPV 9.8 Absolute Neuts (auto) 5.5 Neutrophils % 64.3 Lymphocytes % 21.9 D Monocytes % 8.6 Eosinophils % 4.8 H Basophils % 0.4 Nucleated RBC % 0 Sodium 143 Potassium 3.5 Chloride 107 Carbon Dioxide 31 Anion Gap 5 L BUN 5.6 L Creatinine 0.5 L Est GFR (CKD-EPI)AfAm 177.03 Est GFR (CKD-EPI)NonAf 152.75 Random Glucose 105 Calcium 8.6 Magnesium 1.8 Total Bilirubin 0.4 AST 35 ALT 54 Alkaline Phosphatase 246 H Total Protein 6.8 Albumin 2.8 L A/P Acute Hypoxic and Hypercapneic Respiratory Failure Pneumonia likely recurrent aspiration Sepsis Lactic Acidosis Elevated LFTs - ABX per ID - inhaled bronchodilators - keep HOB >30 deg - Aspiration precautions - DVT prophylaxis - DC planning Dr Price
--- NOTE | 2019-11-29 15:34 | PN ---
Progress Note (short form) - Note Progress Note: requiring less oxygen, on nc more responsive today nonverbal Vital Signs Period Temp Pulse Resp BP Sys/[place]ina[place] Pulse Ox Last 24 Hr 96.7 F-97.7 F 54-90 20-22 82-116/39-64 94-98 cor-rrr lungs clear abd soft,nt +GT ext no edema CBC, BMP 11/29/19 08:27 11/29/19 08:27 Microbiology 11/22/19 13:53 Blood - Peripheral Venous Blood Culture - Final NO GROWTH AFTER 5 DAYS INCUBATION 11/22/19 12:55 Blood - Peripheral Venous Blood Culture - Final NO GROWTH AFTER 5 DAYS INCUBATION 11/23/19 17:20 Nares - Mrsa Screen - Right MRSA Screen - Final NO MRSA ISOLATED 11/23/19 17:20 Nares - Mrsa Screen - Left MRSA Screen - Final NO MRSA ISOLATED 11/24/19 03:05 Urine For Antigen Detection Legionella Antigen - Final 11/24/19 03:05 Urine For Antigen Detection Streptococcus pneumoniae Antigen (M - Final 11/22/19 20:20 Urine - Urine Lane Urine Culture - Final NO GROWTH OBTAINED IMP/RECCD probable aspiration pneumonia continue zosyn day #7 of 7 +rsv antigen noted -contact isolation multiple disabilities clinical imlprovement noted can d/c zosyn in am
--- NOTE | 2019-11-29 15:37 | PN ---
Teaching Attending Note Name of Resident: Hallie Guillen ATTENDING PHYSICIAN STATEMENT I saw and evaluated the patient. I reviewed the resident's note and discussed the case with the resident. I agree with the resident's findings and plan as documented. SUBJECTIVE:seen and examined at bedside, nonverbal OBJECTIVE: Last Vital Signs Temp Pulse Resp BP Pulse Ox 97.2 F L 68 20 116/60 95 11/29/19 14:00 11/29/19 14:00 11/29/19 14:00 11/29/19 14:00 11/29/19 14:00 GENERAL: The patient is awake, alert. HEAD: Normal with no signs of trauma. NECK: Trachea midline, supple. LUNGS: Breath sounds equal, Mild diffuse rales bilaterally, no wheezes, no accessory muscle use. HEART: Regular rate and rhythm, S1, S2 without murmur, rub or gallop. ABDOMEN: Soft, nontender, nondistended, normoactive bowel sounds, no guarding, no rebound, no hepatosplenomegaly, no masses. EXTREMITIES: 2+ pulses, warm, well-perfused, no edema. NEUROLOGICAL: contracted in position, unable to participate in neuro- assessment SKIN: Warm, dry, normal turgor, no rashes or lesions noted CBCD WBC 8.6 K/mm3 (4.0-10.0) 11/29/19 08:27 RBC 4.01 M/mm3 (4.00-5.60) 11/29/19 08:27 Hgb 13.8 GM/dL (11.7-16.9) 11/29/19 08:27 Hct 40.4 % (35.4-49) 11/29/19 08:27 MCV 100.7 fl (80-96) H 11/29/19 08:27 MCHC 34.1 g/dl (32.0-35.9) 11/29/19 08:27 RDW 15.2 % (11.9-15.9) 11/29/19 08:27 Plt Count 186 K/MM3 (134-434) 11/29/19 08:27 MPV 9.8 fl (7.5-11.1) 11/29/19 08:27 CMP Sodium 143 mmol/L (136-145) 11/29/19 08:27 Potassium 3.5 mmol/L (3.5-5.1) 11/29/19 08:27 Chloride 107 mmol/L (98-107) 11/29/19 08:27 Carbon Dioxide 31 mmol/L (21-32) 11/29/19 08:27 Anion Gap 5 MMOL/L (8-16) L 11/29/19 08:27 BUN 5.6 mg/dL (7-18) L 11/29/19 08:27 Creatinine 0.5 mg/dL (0.55-1.3) L 11/29/19 08:27 Calcium 8.6 mg/dL (8.5-10.1) 11/29/19 08:27 Total Bilirubin 0.4 mg/dL (0.2-1) 11/29/19 08:27 AST 35 U/L (15-37) 11/29/19 08:27 ALT 54 U/L (13-61) 11/29/19 08:27 Alkaline Phosphatase 246 U/L (45-117) H 11/29/19 08:27 Total Protein 6.8 g/dl (6.4-8.2) 11/29/19 08:27 Albumin 2.8 g/dl (3.4-5.0) L 11/29/19 08:27 ASSESSMENT AND PLAN: #Acute hypoxic/hypercapneic respiratory failure - Multiple previous admissions with similar episodes - on zosyn, monitor Platelets - Albuterol neb prn - RSV positive - COVID negative - Keeping HOB > 30 degrees, will try to wean off O2 as tolerated - Lactic acidosis, resolved - Pulmonology consult appreciated. Had BM #DVT PPX - Lovenox 40mg sq daily discharge planning
--- NOTE | 2019-11-29 16:19 | PN ---
Physical Exam: SUBJECTIVE: Patient seen and examined OBJECTIVE: Vital Signs Temperature 97.2 F L 11/29/19 14:00 Pulse Rate 68 11/29/19 14:00 Respiratory Rate 20 11/29/19 16:00 Blood Pressure 116/60 11/29/19 14:00 O2 Sat by Pulse Oximetry (%) 95 11/29/19 16:00 GENERAL: The patient is awake, alert, nonverbal, on nonrebreather NECK: supple. EARS, NOSE, THROAT:ears normal, nares patent, oropharynx clear. NECK: Normal range of motion, supple LUNGS: Scattered rhonchi bilaterally HEART: Regular rate and rhythm, normal S1 and S2 ABDOMEN: Soft, nontender, not distended, normoactive bowel sounds LOWER EXTREMITIES: 2+ pulses, warm, well-perfused. No peripheral edema. SKIN: Warm, dry, normal turgor Laboratory Results - last 24 hr 11/29/19 11/29/19 08:27 08:27 WBC 8.6 RBC 4.01 Hgb 13.8 Hct 40.4 MCV 100.7 H MCH 34.3 H MCHC 34.1 RDW 15.2 Plt Count 186 MPV 9.8 Absolute Neuts (auto) 5.5 Neutrophils % 64.3 Lymphocytes % 21.9 D Monocytes % 8.6 Eosinophils % 4.8 H Basophils % 0.4 Nucleated RBC % 0 Sodium 143 Potassium 3.5 Chloride 107 Carbon Dioxide 31 Anion Gap 5 L BUN 5.6 L Creatinine 0.5 L Est GFR (CKD-EPI)AfAm 177.03 Est GFR (CKD-EPI)NonAf 152.75 Random Glucose 105 Calcium 8.6 Magnesium 1.8 Total Bilirubin 0.4 AST 35 ALT 54 Alkaline Phosphatase 246 H Total Protein 6.8 Albumin 2.8 L Active Medications Generic Name Dose Route Start Last Admin Trade Name Freq PRN Reason Stop Dose Admin Acetaminophen 650 mg 11/29/19 11:50 Tylenol Oral Solution - GT Q6H PRN FEVER Acyclovir 400 mg 11/23/19 10:00 11/29/19 10:19 Zovirax Oral Suspension - GT 400 mg BID JORGE Administration Albuterol Sulfate 1 amp 11/24/19 14:18 Ventolin 0.083% Nebulizer Soln - NEB Q4H PRN SHORT OF BREATH/WHEEZING Albuterol Sulfate 2 puff 11/23/19 15:17 Ventolin Hfa Inhaler - IH Q4H PRN SHORTNESS OF BREATH Baclofen 10 mg 11/23/19 10:00 11/29/19 10:19 Lioresal - GT 10 mg BID JORGE Administration Bisacodyl 10 mg 11/22/19 22:19 Dulcolax Suppository - RC HS PRN CONSTIPATION Clobazam 10 mg 11/23/19 22:00 11/28/19 21:41 Onfi - GT 10 mg HS JORGE Administration Clonazepam 1.5 mg 11/23/19 06:00 11/29/19 13:50 Klonopin - GT 1.5 mg TID JORGE Administration Diphenhydramine HCl 25 mg 11/22/19 22:43 Benadryl Oral Solution - GT Q6H PRN ALLERGIES Docusate Sodium 100 mg 11/22/19 22:42 11/29/19 09:05 Colace Liquid - GT Not Given BID JORGE Enoxaparin Sodium 40 mg 11/24/19 10:00 11/29/19 10:19 Lovenox - SQ 40 mg DAILY JORGE Administration Piperacillin Sod/Tazobactam 50 mls @ 100 mls/hr 11/24/19 02:00 11/29/19 10:19 Sod 3.375 gm/ Dextrose IVPB 100 mls/hr Q8H-IV JORGE Administration Protocol Lactobacillus Acidophilus 1 tab 11/29/19 11:51 Bacid - GT HS JORGE Lamotrigine 200 mg 11/29/19 11:56 Lamictal - GT BID JORGE Phenobarbital 45 mg 11/23/19 10:00 11/29/19 10:18 Phenobarbital Liquid - GT 45 mg BID JORGE Administration Polyethylene Glycol 17 gm 11/25/19 10:00 11/29/19 09:05 Miralax (For Daily Use) - GT Not Given DAILY JORGE Senna 8.8 mg 11/29/19 11:51 Senna Oral Solution - GT BID JORGE Sodium Chloride 2 spray 11/23/19 10:00 11/29/19 10:20 [place] Nasal [place] - NS 2 spray BID JORGE Administration ASSESSMENT/PLAN: Patient is a 24 year old male with a past medical history of cerebral palsy, ep ilepsy, asthma, herpes encephalitis, GT placement, GERD and PNA(06/01/19, requiring ET and ICU admission) who presented to the [facility] [place] for shortness of breath. Patient was found to be hypoxic. CT scan showed LLL infiltrates, along with stool impaction w/ ileus. #Acute hypoxic respiratory failure likely 2/2 to aspiration pneumonia - Multiple previous admissions with similar episodes - Chest CT consistent with left lower pneumonia. Bilateral interstitial and mild airspace opacities. - Previous sputum cultures positive for Pseudomonas - Patient on Zosyn 3.375 gm q8h day 11/14. Will d/c in am - MRSA screen negative, d/c vancomycin - Supplemental O2 to keep SpO2 >90%, wean oxygen as tolerated - Albuterol neb prn - f/u with sputum culture - blood culture, and urine culture no growth to date - urine legionella/pneumoniae negative - RSV positive, flu negative - COVID negative - Keeping HOB > 30 degrees - Lactic acidosis, resolved - Pulmonology (Dr. Schmid) consulted. Recommendations appreciated. #Sepsis 2/2 pneumonia - lactic acidosis resolved. - on Zosyn 3.375 gm q8h - cultures no growth to date - RSV positive - covid not detected - MRSA screen negative, vancomycin discontinued - ID (Dr. Rosenthal) consulted. REcommendations appreciated. #Fecal impaction w/ileus - BM reported yesterday - KUB (11/23): some improvement since prior study. Colonic ileus vs mild distal obstruction due to distal stool. No free air. - Continue Rectal enemas and Colace #Transaminitis - Liver enzymes trending down - Patient has had elevated liver enzymes upon previous admissions - will continue Phenobarb for now, Seizure prevention. - Will continue to trend LFTs - RUQ showed borderline hepatomegaly with likely mild fatty infiltration #Hx of seizures - Currently asymptomatic - Will continue home meds #Hx of herpes encephalitis - Continue acyclovir 400 BID #FEN - Not on any standing fluids - routine bmp monitoring - Promote tube feeds #DVT PPX - Lovenox 40mg sq daily #Disposition: - full code - med surg Visit type - Emergency Visit Emergency Visit: Yes ED Registration Date: 11/22/19 Care time: The patient presented to the Emergency Department on the above date and was hospitalized for further evaluation of their emergent condition. - New Patient This patient is new to me today: No - Critical Care Critical Care patient: No ATTENDING PHYSICIAN STATEMENT I saw and evaluated the patient. I reviewed the resident's note and discussed the case with the resident. I agree with the resident's findings and plan as documented. SUBJECTIVE: OBJECTIVE: ASSESSMENT AND PLAN:
[2019-11-29] MEDS: cloBAZam 10 MG TABLET GT SCH (21:50)
[2019-11-29] MEDS: SENNOSIDES 8.8 MG/5 ML BULK BOTTLE GT SCH ×2 (21:51→22:13)
[2019-11-29] MEDS: lamoTRIgine 100 MG TABLET GT SCH (21:51)
[2019-11-30] MEDS ORDERED: DEXTROSE 5%-WATER - 50 ML IVPB ONE ×2 (01:15→09:19)
[2019-11-30] MEDS ORDERED: PIPERACILLIN/TAZOBACTAM 3.375 GM VIAL IVPB ONE ×2 (01:15→09:19)
[2019-11-30] MEDS: PIPERACILLIN/TAZOB 3.375 GM 3.375 GM in DEXTROSE 5%-WATER - 50 ML IVPB SCH ×2 (01:18→09:23)
[2019-11-30] MEDS: clonazePAM 0.5 MG TABLET GT SCH ×2 (06:27→13:16)
[2019-11-30 08:57] LABS: BLOOD UREA NITROGEN 6.6 mg/dL (7-18); CALCIUM 8.8 mg/dL (8.5-10.1); CREATININE 0.5 mg/dL (0.55-1.3); MAGNESIUM 1.9 mg/dL (1.8-2.4); PHOSPHOROUS 4.4 mg/dL (2.5-4.9); POTASSIUM 3.8 mmol/L (3.5-5.1)
[2019-11-30] MEDS ORDERED: PT OWN MED DRAWER 7, Y5N ONE (09:19)
[2019-11-30] MEDS: lamoTRIgine 100 MG TABLET GT SCH (09:22)
[2019-11-30] MEDS: SODIUM CHLORIDE NASAL SPRAY 44 ML BOTTLE NS SCH (09:22)
[2019-11-30] MEDS: BACLOFEN 10 MG TABLET (FP) GT SCH (09:22)
[2019-11-30] MEDS: SENNOSIDES 8.8 MG/5 ML BULK BOTTLE GT SCH (09:22)
[2019-11-30] MEDS: PHENobarbital 20 MG/5 ML UNIT-DOSE CUP GT SCH (09:22)
[2019-11-30] MEDS: ENOXAPARIN NA (PORCINE) 40 MG/0.4 ML DISP.SYRIN SQ SCH (09:23)
[2019-11-30] MEDS: ACYCLOVIR 200 MG/5 ML LIQUID GT SCH (09:23)
[2019-11-30] MEDS: DOCUSATE NA 100 MG/10 ML UNIT-DOSE CUPS GT SCH (09:25)
[2019-11-30] MEDS: POLYETHYLENE GLYCOL 3350 119 GM BTL GT SCH (09:28)
--- NOTE | 2019-11-30 10:06 | PN ---
Progress Note, Physician History of Present Illness: pulmonary awake,non-verbal,-resp distress - Current Medication List Current Medications: Active Medications Acetaminophen (Tylenol Oral Solution -) 650 mg GT Q6H PRN PRN Reason: FEVER Acyclovir (Zovirax Oral Suspension -) 400 mg GT BID [facility] Last Admin: 11/30/19 09:23 Dose: 400 mg Documented by: Albuterol Sulfate (Ventolin 0.083% Nebulizer Soln -) 1 amp NEB Q4H PRN PRN Reason: SHORT OF BREATH/WHEEZING Albuterol Sulfate (Ventolin Hfa Inhaler -) 2 puff IH Q4H PRN PRN Reason: SHORTNESS OF BREATH Baclofen (Lioresal -) 10 mg GT BID [facility] Last Admin: 11/30/19 09:22 Dose: 10 mg Documented by: Bisacodyl (Dulcolax Suppository -) 10 mg RC HS PRN PRN Reason: CONSTIPATION Clobazam (Onfi -) 10 mg GT HS [facility] Last Admin: 11/29/19 21:50 Dose: 10 mg Documented by: Clonazepam (Klonopin -) 1.5 mg GT TID [facility] Last Admin: 11/30/19 06:27 Dose: 1.5 mg Documented by: Diphenhydramine HCl (Benadryl Oral Solution -) 25 mg GT Q6H PRN PRN Reason: ALLERGIES Docusate Sodium (Colace Liquid -) 100 mg GT BID [facility] Last Admin: 11/30/19 09:25 Dose: 100 mg Documented by: Enoxaparin Sodium (Lovenox -) 40 mg SQ DAILY [facility] Last Admin: 11/30/19 09:23 Dose: 40 mg Documented by: Piperacillin Sod/Tazobactam (Sod 3.375 gm/ Dextrose) 50 mls @ 100 mls/hr IVPB Q8H-IV [facility]; Protocol Last Admin: 11/30/19 09:23 Dose: 100 mls/hr Documented by: Lactobacillus Acidophilus (Bacid -) 1 tab GT [facility] Last Admin: 11/29/19 21:51 Dose: 1 tab Documented by: Lamotrigine (Lamictal -) 200 mg GT BID [facility] Last Admin: 11/30/19 09:22 Dose: 200 mg Documented by: Phenobarbital (Phenobarbital Liquid -) 45 mg GT BID [facility] Last Admin: 11/30/19 09:22 Dose: 45 mg Documented by: Polyethylene Glycol (Miralax (For Daily Use) -) 17 gm GT DAILY [facility] Last Admin: 11/30/19 09:28 Dose: 17 grams Documented by: Senna (Senna Oral Solution -) 8.8 mg GT BID [facility] Last Admin: 11/30/19 09:22 Dose: 8.8 mg Documented by: Sodium Chloride ([place] Nasal [place] -) 2 spray NS BID [facility] Last Admin: 11/30/19 09:22 Dose: 2 spray Documented by: - Objective Vital Signs: Vital Signs Temperature 99.2 F 11/30/19 08:25 Pulse Rate 63 11/30/19 08:25 Respiratory Rate 20 11/30/19 08:25 Blood Pressure 99/56 L 11/30/19 08:25 O2 Sat by Pulse Oximetry (%) 98 11/30/19 08:25 Constitutional: Yes: Well Nourished, Calm Eyes: Yes: WNL HENT: Yes: WNL Neck: Yes: WNL Cardiovascular: Yes: Regular Rate and Rhythm, S1, S2 Respiratory: Yes: Rhonchi (few rhonchi) Gastrointestinal: Yes: Normal Bowel Sounds, Soft Extremities: Yes: Other (contracted) Edema: No Labs: 11/30/19 07:20 Problem List - Problems (1) Pneumonia Code(s): J18.9 - PNEUMONIA, UNSPECIFIED ORGANISM (2) Acute hypoxemic respiratory failure Code(s): J96.01 - ACUTE RESPIRATORY FAILURE WITH HYPOXIA (3) Epilepsy Code(s): G40.909 - EPILEPSY, UNSP, NOT INTRACTABLE, WITHOUT STATUS EPILEPTICUS (4) Facial twitching Code(s): G51.4 - FACIAL MYOKYMIA Assessment/Plan A/P Acute Hypoxic and Hypercapneic Respiratory Failure improved Pneumonia likely recurrent aspiration Sepsis Lactic Acidosis Elevated LFTs - ABX completed - inhaled bronchodilators - keep HOB >30 deg - Aspiration precautions - DVT prophylaxis - DC planning DR VILLALTA
--- NOTE | 2019-11-30 12:36 | PN ---
Teaching Attending Note Name of Resident: Hallie Guillen ATTENDING PHYSICIAN STATEMENT I saw and evaluated the patient. I reviewed the resident's note and discussed the case with the resident. I agree with the resident's findings and plan as documented. SUBJECTIVE: seen and examined at bedside, smiling to voice, no acute distress OBJECTIVE: Last Vital Signs Temp Pulse Resp BP Pulse Ox 99.2 F 63 20 99/56 L 93 L 11/30/19 08:25 11/30/19 08:25 11/30/19 09:00 11/30/19 08:25 11/30/19 11:00 GENERAL: The patient is awake, alert. HEAD: Normal with no signs of trauma. NECK: Trachea midline, supple. LUNGS: Breath sounds equal, Mild diffuse rales bilaterally, no wheezes, no accessory muscle use. HEART: Regular rate and rhythm, S1, S2 without murmur, rub or gallop. ABDOMEN: Soft, nontender, nondistended, normoactive bowel sounds, no guarding, no rebound, no hepatosplenomegaly, no masses. EXTREMITIES: 2+ pulses, warm, well-perfused, no edema. NEUROLOGICAL: contracted in position, unable to participate in neuro- assessment SKIN: Warm, dry, normal turgor, no rashes or lesions noted CBCD WBC 8.6 K/mm3 (4.0-10.0) 11/29/19 08:27 RBC 4.01 M/mm3 (4.00-5.60) 11/29/19 08:27 Hgb 13.8 GM/dL (11.7-16.9) 11/29/19 08:27 Hct 40.4 % (35.4-49) 11/29/19 08:27 MCV 100.7 fl (80-96) H 11/29/19 08:27 MCHC 34.1 g/dl (32.0-35.9) 11/29/19 08:27 RDW 15.2 % (11.9-15.9) 11/29/19 08:27 Plt Count 186 K/MM3 (134-434) 11/29/19 08:27 MPV 9.8 fl (7.5-11.1) 11/29/19 08:27 CMP Sodium 142 mmol/L (136-145) 11/30/19 07:20 Potassium 3.8 mmol/L (3.5-5.1) 11/30/19 07:20 Chloride 106 mmol/L (98-107) 11/30/19 07:20 Carbon Dioxide 30 mmol/L (21-32) 11/30/19 07:20 Anion Gap 5 MMOL/L (8-16) L 11/30/19 07:20 BUN 6.6 mg/dL (7-18) L 11/30/19 07:20 Creatinine 0.5 mg/dL (0.55-1.3) L 11/30/19 07:20 Calcium 8.8 mg/dL (8.5-10.1) 11/30/19 07:20 Total Bilirubin 0.4 mg/dL (0.2-1) 11/29/19 08:27 AST 35 U/L (15-37) 11/29/19 08:27 ALT 54 U/L (13-61) 11/29/19 08:27 Alkaline Phosphatase 246 U/L (45-117) H 11/29/19 08:27 Total Protein 6.8 g/dl (6.4-8.2) 11/29/19 08:27 Albumin 2.8 g/dl (3.4-5.0) L 11/29/19 08:27 ASSESSMENT AND PLAN: #Acute hypoxic/hypercapneic respiratory failure - Multiple previous admissions with similar episodes - completed ABx, will d/c zosyn - Albuterol neb prn - RSV positive - COVID negative - Keeping HOB > 30 degrees - ID consult appreciated - Pulmonology consult appreciated. #DVT PPX - Lovenox 40mg sq daily discharge planning
[2019-11-30 13:17] VITALS: BP 101/60; PULSE 96; TEMP 99.4
--- NOTE | 2019-11-30 16:22 | DS ---
Physical Exam: SUBJECTIVE: Patient seen and examined OBJECTIVE: Vital Signs Temperature 99.4 F 11/30/19 13:16 Pulse Rate 96 H 11/30/19 13:16 Respiratory Rate 20 11/30/19 13:16 Blood Pressure 101/60 11/30/19 13:16 O2 Sat by Pulse Oximetry (%) 92 L 11/30/19 13:16 PHYSICAL EXAM GENERAL: The patient is awake, alert, nonverbal, on nonrebreather NECK: supple. EARS, NOSE, THROAT:ears normal, nares patent, oropharynx clear. NECK: Normal range of motion, supple LUNGS: Scattered rhonchi bilaterally HEART: Regular rate and rhythm, normal S1 and S2 ABDOMEN: Soft, nontender, not distended, normoactive bowel sounds LOWER EXTREMITIES: 2+ pulses, warm, well-perfused. No peripheral edema. SKIN: Warm, dry, normal turgor LABS Laboratory Results - last 24 hr 11/30/19 07:20 Sodium 142 Potassium 3.8 Chloride 106 Carbon Dioxide 30 Anion Gap 5 L BUN 6.6 L Creatinine 0.5 L Est GFR (CKD-EPI)AfAm 177.03 Est GFR (CKD-EPI)NonAf 152.75 Random Glucose 101 Calcium 8.8 Phosphorus 4.4 Magnesium 1.9 HOSPITAL COURSE: Date of Admission:11/22/19 Date of Discharge: 11/30/19 Patient is a 24 year old male with a past medical history of cerebral palsy, epilepsy, asthma, herpes encephalitis, GT placement, GERD and PNA(06/01/19, requiring ET and ICU admission) who presented to the ED [facility] from [place] for shortness of breath. Patient was found to be hypoxic. CT scan showed LLL infiltrates, along with stool impaction w/ ileus. #Acute hypoxic respiratory failure likely 2/2 to aspiration pneumonia - Multiple previous admissions with similar episodes - Chest CT consistent with left lower pneumonia. Bilateral interstitial and mild airspace opacities. - Patient completed Zosyn 3.375 gm q8h 7/7 days. - Albuterol neb prn - blood culture, and urine culture no growth to date - urine legionella/pneumoniae negative - RSV positive, flu negative - COVID negative - Keeping HOB > 30 degrees - Lactic acidosis, resolved - Pulmonology (Dr. Schmid) consulted. Recommendations appreciated. #Sepsis 2/2 pneumonia - lactic acidosis resolved. - Zosyn 3.375 gm q8h - cultures no growth to date - RSV positive - covid not detected - ID (Dr. Rosenthal) consulted. REcommendations appreciated. #Fecal impaction w/ileus - KUB (11/23): some improvement since prior study. Colonic ileus vs mild distal obstruction due to distal stool. No free air. - Rectal enemas and Colace prn - BM reported - tube feeding resumed #Transaminitis - Liver enzymes trending down - Patient has had elevated liver enzymes upon previous admissions - will continue Phenobarb for now, Seizure prevention. - RUQ showed borderline hepatomegaly with likely mild fatty infiltration #Hx of seizures - Currently asymptomatic - Will continue home meds #Hx of herpes encephalitis - Continue acyclovir 400 BID Minutes to complete discharge: 38 Discharge Summary Problems reviewed: Yes Reason For Visit: FECAL IMPACTION HYPOXIA PNEUMONIA Condition: Improved - Instructions Diet, Activity, Other Instructions: Your visit You were admitted to the hospital because of shortness of breath. You were found to have a pneumonia and treated with IV antibiotics. You were also noted to have a stool impaction. You were given enemas and stool softeners and you had subsequently had bowel movement. You completed the course of antibiotics and now stable for discharge to [place]. Medications Please continue your home medications. Follow up Please follow up with your primary care doctor. Additional info Please call 911 or go to the ED if with any worsening fevers, chills, headache, dizziness, chest pain, shortness of breath, belly pain, diarrhea, or any new concerns noted. Referrals: Farzad Crow MD [Primary Care Provider] - Disposition: RETIREMENT FACILITY - Home Medications Comprehensive Discharge Medication List: Ambulatory Orders Acyclovir 400 mg GT BID 04/25/17 Baclofen 10 mg GT BID 04/25/17 Clobazam [Onfi -] 10 mg GT HS 04/25/17 Clonazepam 1.5 mg GT TID 04/25/17 Lamotrigine 200 mg GT BID 04/25/17 Multivitamin [Poly-Vitamin] 1 each GT HS 04/25/17 Phenobarbital 48.6 mg GT BID 04/25/17 Diazepam Rectal Gel [Diastat Rectal Gel -] 7.5 mg GA PRN PRN 05/23/18 Protein Supplement [Promod] 1,190 ml GT DAILY 01/13/19 Budesonide [Pulmicort 0.25 mg Nebulizer -] 1 neb IH BID 02/05/19 Fluticasone Prop 0.05% Nasal [Flonase -] 2 spray NS AM 02/05/19 Magnesium Hydrox 2400MG/30Ml [Milk of Magnesia -] 20 ml GT BID 02/05/19 Albuterol 2.5/Ipratropium 0.5 [Duoneb -] 1 neb IH QID PRN #30 neb 02/14/19 Sodium Chloride/Aloe Vera [[place] Saline Nasal Gel [place]] 22 ml NS BID 06/01/19 Bisacodyl 10 mg RC PRN PRN 11/22/19 Diphenhydramine [Benadryl 12.5 MG/5 ML Oral Solution -] 25 mg PO Q6H PRN 11/22/19 Famotidine 10 mg PO BID 11/22/19 Lactobacillus Acidophilus [Acidophilus] 1 each PO HS 11/22/19 Simethicone Liquid [Mylicon Liquid -] 40 mg PO QID PRN 11/22/19 Acetaminophen Oral Solution [Tylenol Oral Solution -] 650 mg GT Q6H PRN soln.or al 11/29/19 Docusate Liquid [Colace Liquid -] 100 mg GT BID ud 11/29/19 This patient is new to me today: No Emergency Visit: Yes ED Registration Date: 11/22/19 Care time: The patient presented to the Emergency Department on the above date and was hospitalized for further evaluation of their emergent condition. Critical Care patient: No - Discharge Referral Referred to [facility] No ATTENDING PHYSICIAN STATEMENT I saw and evaluated the patient. I reviewed the resident's note and discussed the case with the resident. I agree with the resident's findings and plan as documented. SUBJECTIVE: OBJECTIVE: ASSESSMENT AND PLAN:
== END 2019-11-30 14:35 | disposition home or self-care (01) | DRG 720 ==
LOC: JER 11:35 → JERBED 19:10 → J8W 23:56
PROVIDERS: ADMIT Internal Medicine; ATTEND Student in an Organized Health Care Education/Training Program
PROC: 3E0G76Z Introduction of Nutritional Substance into Upper GI, Via Natural or Artificial Opening (ICD-10-PCS; principal; 2019-11-22)
DX: A41.9 Sepsis, unspecified organism (principal); J96.02 Acute respiratory failure with hypercapnia; J96.01 Acute respiratory failure with hypoxia; J69.0 Pneumonitis due to inhalation of food and vomit; R53.2 Functional quadriplegia; E87.2 Acidosis; Z93.1 Gastrostomy status; B97.4 Respiratory syncytial virus as the cause of diseases classified elsewhere; K56.7 Ileus, unspecified; D75.1 Secondary polycythemia; J45.909 Unspecified asthma, uncomplicated; I45.10 Unspecified right bundle-branch block; G80.9 Cerebral palsy, unspecified; G40.909 Epilepsy, unspecified, not intractable, without status epilepticus; K56.41 Fecal impaction; K21.9 Gastro-esophageal reflux disease without esophagitis; R74.0 Nonspecific elevation of levels of transaminase and lactic acid dehydrogenase [LDH]; Z74.01 Bed confinement status; F79 Unspecified intellectual disabilities
CPT/HCPCS: 36415; 36600; 71045-TC-FY; 71250-TC; 74018-TC-FY; 74176-TC; 76705-TC; 80048; 80053; 81003; 82803; 83605; 83735; 84100; 84484; 85025; 85610; 85730; 87040; 87081; 87086; 87804; 87807; 87899; 93005; 93010; 94761; 99285-25; J0475; U0003

== ENCOUNTER 2020-01-13 11:28 | Inpatient (IN) | payer OTHER ==
[2020-01-13] MEDS ORDERED: SODIUM CHLORIDE 1,633 ML IV ONE (12:07)
--- NOTE | 2020-01-13 12:09 | PDOC ---
History of Present Illness - General Chief Complaint: SIRS, Suspected/Possible Stated Complaint: RESPIRATORY Time Seen by Provider: 01/13/20 12:08 - History of Present Illness Initial Comments: Pt is 24yo M from [place] with PMH CP, epilepsy, herpes encephalitis, GERD, aspiration pneumonia BIBA who presents with hypoxia. Per paperwork from [facility], patient was in respiratory distress with tachypnea (40s) and satting in 79-80%. Was satting 90-92% on 4-6L O2. Aide at bedside unable to comment further on patient's status. PCP PMH: see above PSH: see chart Meds: see chart Allergies: NKDA Review of Systems - unable to obtain due to patient mental status Physical Exam General: awake, alert, in no acute distress Head: normocephalic, atraumatic Eyes: PERRL, EOMI, anicteric sclera, conjunctiva clear ENT: Auricles normal inspection, oropharynx clear without exudates, moist mucous membranes Neck: supple, normal ROM Lung: diffuse crackles in b/l lungs Heart: RRR, normal S1, S2, no murmurs appreciated Abdomen: soft, non tender, normoactive bowel sounds, no guarding, rebound, masses Extremities: contracted extremities, no edema, no erythema or tenderness, radial/DP/PT pulses 2+ and symmetric Skin: warm, dry, no rashes or lesions noted MDM Pt is 24yo M from [place] with PMH CP, epilepsy, herpes encephalitis, GERD, aspiration pneumonia BIBA who presends with tachypnea, hypoxia. Vitals significant for hypotension, hypoxia, hypothermia, tachypnea DDx including but not limited to: pneumonia, UTI Workup: sepsis labs, cxr, ekg TX: vanc/zosyn; IV fluids CXR - consolidation over left chest; ?lucency under diaphragm 01/13/20 13:03 Attempted to contact [facility] nurse, spoke to Jian @ [phone] usual desats in am with congestion that improves w/suction and duonebs; today was given similar treatment without improvement in sats on RA; was put on 6L satting 95% Per nurse, denies any f/c, cough, vomiting/diarrhea, denies any problems with G tube feeds. code status: full code mother - healthcare proxy pending fax for information from [facility] Placed patient on nonrebreather given sats in 85-88% labs: no leukocytosis, no anemia, hyperkalemia, elevated LFTs, - Will repeat BMP 01/13/20 13:20 Given CXR, will order CT chest/a/p with contrast 01/13/20 15:47 Repeat K WNL No EKG changes EKG: normal sinus rhythm, HR 90bpm, OH 166ms, QRS 110ms, QTc 484ms, unchanged from 11/2019 Vitals since improved - satting 100% on nonrebreather; SBP increasing to 90s- 100s initial read of CT with distended bladder attempted to pass esqueda 3x - was unable to pass esqueda; however bedside bladder scan indicates volume 59.3cc - will place urinary bag to monitor urine output pending CT chest/a/p read 01/13/20 16:56 MAP 55; echo from 05/2019 EF was 55-60%, will give additional 500cc bolus of fluids CT chest: low attenuation material in b/l LL bronchi and left upper bronchi with large consolidations suspicious for aspiration pneumonia; cardiomegaly CT a/p: no pneumoperitoneum, large volume stool impaction 01/13/20 17:[address] Almodovar, who accepted care; admitting Dr. Williamson Disposition Admit Past History - Medical History Allergies/Adverse Reactions: Allergies Allergy/AdvReac Type Severity Reaction Status Date / Time No Known Allergies Allergy Verified 06/11/19 09:59 Home Medications: Ambulatory Orders Acyclovir 400 mg GT BID 04/25/17 Baclofen 10 mg GT BID 04/25/17 Clobazam [Onfi -] 10 mg GT HS 04/25/17 Clonazepam 0.5 mg GT TID 04/25/17 Lamotrigine 200 mg GT BID 04/25/17 Multivitamin [Poly-Vitamin] 1 each GT HS 04/25/17 Phenobarbital 45 mg GT BID 04/25/17 Diazepam Rectal Gel [Diastat Rectal Gel -] 7.5 mg [place] PRN PRN 05/23/18 Protein Supplement [Promod] 1,190 ml GT DAILY 05/23/18 Budesonide [Pulmicort 0.25 mg Nebulizer -] 1 neb IH BID 02/05/19 Fluticasone Prop 0.05% Nasal [Flonase -] 2 spray NS AM 02/05/19 Magnesium Hydrox 2400MG/30Ml [Milk of Magnesia -] 20 ml GT BID 02/05/19 Albuterol 2.5/Ipratropium 0.5 [Duoneb -] 1 neb IH QID PRN #30 neb 02/14/19 Sodium Chloride/Aloe Vera [[place] Saline Nasal Gel [place]] 22 ml NS BID 06/01/19 Bisacodyl 10 mg RC PRN PRN 11/22/19 Diphenhydramine [Benadryl 12.5 MG/5 ML Oral Solution -] 25 mg PO Q6H PRN 11/22/19 Famotidine 10 mg PO BID 11/22/19 Lactobacillus Acidophilus [Acidophilus] 1 each PO HS 11/22/19 Simethicone Liquid [Mylicon Liquid -] 40 mg PO PRN PRN 11/22/19 Docusate Liquid [Colace Liquid -] 100 mg GT BID ud 11/29/19 Anemia: No Asthma: Yes Cancer: No Cardiac Disorders: No CVA: No COPD: No CHF: No Dementia: No Diabetes: No GI Disorders: Yes (DYSPHAGIA. CONSTIPATION. GERD. Gtube) Disorders: No HTN: No Hypercholesterolemia: No Liver Disease: No Psychiatric Problems: Yes (MR) Seizures: Yes (EPILEPSY) Thyroid Disease: No - Surgical History Abdominal Surgery: Yes (GT PLACEMENT) Appendectomy: No Cardiac Surgery: No Cholecystectomy: No Lung Surgery: No Neurologic Surgery: No Orthopedic Surgery: Yes (l hip pinning, r hip osteotomy) - Psycho-Social/Smoking History Smoking Status: No Smoking History: Never smoked Have you smoked in the past 12 months: No Number of Cigarettes Smoked Daily: 0 *Physical Exam - Vital Signs Last Vital Signs Temp Pulse Resp BP Pulse Ox 94.5 F L 74 33 H 82/44 L 93 L 01/13/20 11:55 01/13/20 11:55 01/13/20 11:55 01/13/20 11:55 01/13/20 11:55 ED Treatment Course - LABORATORY CBC & Chemistry Diagram: 01/24/20 08:20 01/24/20 08:20 Discharge - Discharge Information Problems reviewed: Yes Clinical Impression/Diagnosis: Respiratory distress Sepsis Qualifiers: Sepsis type: sepsis due to unspecified organism Sepsis acute organ dysfunction status: unspecified Qualified Code(s): A41.9 - Sepsis, unspecified organism Condition: Stable - Admission Yes - Follow up/Referral - Patient Discharge Instructions - Post Discharge Activity
[2020-01-13] MEDS ORDERED: PIPERACILLIN/TAZOB 3.375 GM 3.375 GM in DEXTROSE 5%-WATER - 50 ML IVPB ONE (12:24)
[2020-01-13] MEDS ORDERED: VANCOMYCIN 1 GM in D5W (PRE-DOCKED) 1,000 MG/250 ML IVPB ONE (12:26)
[2020-01-13] MEDS ORDERED: PIPERACILLIN/TAZOB 3.375 GM 4.5 GM in DEXTROSE 5%-WATER - 50 ML IVPB ONE (12:26)
[2020-01-13 12:49] LABS: INR 1.09 (0.83-1.09); PROTHROMBIN TIME (PATIENT) 12.9 SEC (9.7-13.0)
[2020-01-13 12:52] LABS: ACTIVATED PTT 39.5 SECONDS (25.2-36.5)
[2020-01-13 12:56] LABS: VENOUS BASE EXCESS 1.2 mmol/L (-2-2); VENOUS O2 SATURATION 97.8 % (70-80); VENOUS PCO2 36.7 mmHg (38-52); VENOUS PH 7.449 (7.310-7.410)
[2020-01-13 13:04] LABS: BASO % 0.2 % (0-2.0); EOS % 1.8 % (0-4.5); HEMATOCRIT 44.5 % (35.4-49); LYMPH % 19.9 % (8-40); MCHC 33.7 g/dl (32.0-35.9); MEAN CELL VOLUME 100.9 fl (80-96); MEAN PLT VOLUME 11.5 fl (7.5-11.1); MONO % 5.1 % (3.8-10.2); PLATELET COUNT 208 K/MM3 (134-434); RBC 4.41 M/mm3 (4.00-5.60); RDW 15.8 % (11.9-15.9); WHITE BLOOD COUNT 9.8 K/mm3 (4.0-10.0)
[2020-01-13 13:16] LABS: ALBUMIN 3.3 g/dl (3.4-5.0); ALK PHOS 285 U/L (45-117); BILIRUBIN,TOTAL 0.2 mg/dL (0.2-1); BLOOD UREA NITROGEN 18.9 mg/dL (7-18); CALCIUM 8.9 mg/dL (8.5-10.1); CHLORIDE 104 mmol/L (98-107); CO2 29 mmol/L (21-32); CREATININE 0.7 mg/dL (0.55-1.3); GLUCOSE,RANDOM 73 mg/dL (74-106); SGOT/AST 139 U/L (15-37); SODIUM 135 mmol/L (136-145); TOT PROT 8.7 g/dl (6.4-8.2)
[2020-01-13 13:19] LABS: ANION GAP 2 MMOL/L (8-16); SGPT/ALT 101 U/L (13-61)
[2020-01-13 13:29] LABS: POTASSIUM 9.3 mmol/L (3.5-5.1)
--- NOTE | 2020-01-13 14:09 | PDOC ---
Documentation entered by Stephanie Campos SCRIBE, acting as scribe for Jose Andrews MD. Jose Andrews MD: This documentation has been prepared by the Andres turner Brenda, SCRIBE, under my direction and personally reviewed by me in its entirety. I confirm that the documentation accurately reflects all work, treatment, procedures, and medical decision making performed by me. Attending Attestation - Resident Resident Name: Neisha Wolfe - ED Attending Attestation I have performed the following: I have examined & evaluated the patient, The case was reviewed & discussed with the resident, I agree w/resident's findings & plan, Exceptions are as noted - HPI HPI: 01/13/20 13:49 24 year old male with a significant PMH of Cerebral palsy, Epilepsy, asthma, Herpes encephalitis, GERD, and recurrent PNAwho presents to the emergency department MELODY arias Andersen for respiratory distress. Pt is unable to contribute to further history secondary to severe MR. Per andersen, pt desatted as he often does this AM but the hypoxia did not resolve with suctioning as it often does. O2 sat was persistently in the 70s but improved to 90s with 6L. At that point, EMS was activated. NH staff deny any other sxs, pt has not had coughing, f/c, changes in urination, diarrhea. - Physicial Exam PE: 01/13/20 14:00 GENERAL: non verbal, no distress, contracted x4 ENT: Dry MM NECK: supple, no masses LUNGS: diffuse crackles L>R, tachypneic to 30 HEART: RRR no MRG, RR 30, mild increased WOB ABDOMEN: +mild distention, tympanitic to percussion EXTREMITIES: contracted x4, 2+symmetric peripheral pulses NEUROLOGICAL: non verbal, CN grossly intact - Medical Decision Making 01/13/20 14:03 24yo M with MMP, frequent admissions for sepsis presents to the ED with resp distress, hypothermia, tachypnea, hypoxia with increased O2 requirement DDx includes sepsis 2/2 PNA vs UTI, COVID, pleural effusion Plan for sepsis w/u, 30cc/kg IVF, empiric abx, CT chest, COVID swab, admit Discharge - Discharge Information Problems reviewed: Yes Clinical Impression/Diagnosis: Sepsis, Respiratory distress - Follow up/Referral Referrals: Farzad Crow MD [Primary Care Provider] - - Patient Discharge Instructions - Post Discharge Activity
[2020-01-13] MEDS ORDERED: PIPERACILLIN/TAZOB 4.5 GM 4.5 GM/100 ML BAG IVPB ONE (14:25)
[2020-01-13] MEDS ORDERED: VANCOMYCIN 1 GRAM (PRE-DOCKED) 1,000 MG/250 ML BAG IVPB ONE (14:25)
--- NOTE | 2020-01-13 14:27 | EKG ---
Test Reason : Blood Pressure : / mmHG Vent. Rate : 090 BPM Atrial Rate : 090 BPM P-R Int : 166 ms QRS Dur : 110 ms QT Int : 396 ms P-R-T Axes : 043 073 018 degrees QTc Int : 484 ms NORMAL SINUS RHYTHM INFERIOR INFARCT (CITED ON OR BEFORE 26-JUN-2016) NONSPECIFIC INTRAVENTRICULAR CONDUCTION DEFECT ABNORMAL ECG WHEN COMPARED WITH ECG OF 22-NOV-2019 12:42, NO SIGNIFICANT CHANGE WAS FOUND Confirmed by JOSH BAUTISTA MD ([id number]) on 01/13/2020 2:26:58 PM Referred By: Confirmed By:JOSH BAUTISTA MD
[2020-01-13 14:45] LABS: BLOOD UREA NITROGEN 17.9 mg/dL (7-18); CALCIUM 8.6 mg/dL (8.5-10.1); CREATININE 0.6 mg/dL (0.55-1.3); POTASSIUM 4.3 mmol/L (3.5-5.1)
[2020-01-13] MEDS ORDERED: SODIUM CHLORIDE 0.9% 500 ML INFUS.BAG IV ONE ×2 (16:57→19:05)
[2020-01-13] MEDS ORDERED: BISACODYL 10 MG SUPP.RECT RC PRN (17:34)
[2020-01-13] MEDS ORDERED: ALBUTEROL SO4 2.5/IPRATROPIUM 0.5 INH SOL 3 ML VIAL.NEB. NEB PRN (17:34)
[2020-01-13] MEDS ORDERED: diazePAM RECTAL GEL 10 MG KIT (PRE-CALIBRATED) RC PRN (17:34)
--- NOTE | 2020-01-13 17:38 | HP ---
CHIEF COMPLAINT: hypoxia/ respiratory distress PCP:dr salazar from [facility] HISTORY OF PRESENT ILLNESS: 24 Y Male with a PMH of Cerebral Palsy, epilespsy, herpes encephalitis, GERD, Aspiration pneumonia, Dysphagia s/p G-tube, presents to ED from [facility] facility with hypoxia and respiratory distress found to be saturating in the high 70's low 80's his aid gave him a duoneb and his inhaler though he did not respond and was brought to the ED- of note patient was here around 7 weeks ago with similar presentation - in the ED patient was found to be hypotensive with MAPS in the high 50's and was placed on NRB. unable to ascertain further history as the aid is not at bedside and no one is currently answering the phone at [facility] course was notable for: (1) T 94.7 (ahsan hugger) MAP 68 94 % NRB (2)normal WBC; AST 139 ALT 101 ALK phos 285 (3)Chest CT: consolidations in RML RLL ABHISHEK LLL suspicious for aspiration PNA; ab/pelvis ct large stool impaction with gaseous distention at the level of the sigmoid (4) received IVF/vanc/zosyn Recent Travel: PAST MEDICAL HISTORY: see above PAST SURGICAL HISTORY: unable to assess Social History: Smoking:unable to assess Alcohol:" Drugs: " Allergies No Known Allergies Allergy (Verified 06/11/19 09:59) HOME MEDICATIONS: Home Medications Medication Instructions Recorded Acyclovir 400 mg GT BID 04/25/17 Baclofen 5 mg GT BID 04/25/17 Clobazam [Onfi -] 10 mg GT HS 04/25/17 Clonazepam 0.5 mg GT TID 04/25/17 Lamotrigine 200 mg GT BID 04/25/17 Multivitamin [Poly-Vitamin] 1 each GT HS 04/25/17 Phenobarbital 45 mg GT BID 04/25/17 Diazepam Rectal Gel [Diastat 7.5 mg MS PRN PRN 05/23/18 Rectal Gel -] Protein Supplement [Promod] 1,190 ml GT DAILY 05/23/18 Budesonide [Pulmicort 0.25 mg 1 neb IH BID 02/05/19 Nebulizer -] Fluticasone Prop 0.05% Nasal 2 spray NS AM 02/05/19 [Flonase -] Magnesium Hydrox 2400MG/30Ml [Milk 20 ml GT BID 02/05/19 of Magnesia -] Albuterol 2.5/Ipratropium 0.5 1 neb IH QID PRN #30 neb 02/14/19 [Duoneb -] Sodium Chloride/Aloe Vera [[place] 22 ml NS BID 06/01/19 Saline Nasal Gel [place]] Bisacodyl 10 mg RC PRN PRN 11/22/19 Diphenhydramine [Benadryl 12.5 25 mg PO Q6H PRN 11/22/19 MG/5 ML Oral Solution -] Famotidine 10 mg PO BID 11/22/19 Lactobacillus Acidophilus 1 each PO HS 11/22/19 [Acidophilus] Simethicone Liquid [Mylicon Liquid 40 mg PO QID PRN 11/22/19 -] Acetaminophen Oral Solution 650 mg GT Q6H PRN soln.oral 11/29/19 [Tylenol Oral Solution -] Docusate Liquid [Colace Liquid -] 100 mg GT BID ud 11/29/19 REVIEW OF SYSTEMS: UNABLE TO ASSESS PATIENT IS NON-VERBAL CONSTITUTIONAL: Absent: fever, chills, diaphoresis, generalized weakness, malaise, loss of appetite, weight change HEENT: Absent: rhinorrhea, nasal congestion, throat pain, throat swelling, difficulty swallowing, mouth swelling, ear pain, eye pain, visual changes CARDIOVASCULAR: Absent: chest pain, syncope, palpitations, irregular heart rate, lightheadedness, peripheral edema RESPIRATORY: Absent: cough, shortness of breath, dyspnea with exertion, orthopnea, wheezing, stridor, hemoptysis GASTROINTESTINAL: Absent: abdominal pain, abdominal distension, nausea, vomiting, diarrhea, constipation, melena, hematochezia GENITOURINARY: Absent: dysuria, frequency, urgency, hesitancy, hematuria, flank pain, genital pain MUSCULOSKELETAL: Absent: myalgia, arthralgia, joint swelling, back pain, neck pain SKIN: Absent: rash, itching, pallor HEMATOLOGIC/IMMUNOLOGIC: Absent: easy bleeding, easy bruising, lymphadenopathy, frequent infections ENDOCRINE: Absent: unexplained weight gain, unexplained weight loss, heat intolerance, cold intolerance NEUROLOGIC: Absent: headache, focal weakness or paresthesias, dizziness, unsteady gait, seizure, mental status changes, bladder or bowel incontinence PSYCHIATRIC: Absent: anxiety, depression, suicidal or homicidal ideation, hallucinations. PHYSICAL EXAMINATION Vital Signs - 24 hr 01/13/20 01/13/20 01/13/20 11:55 12:40 13:05 Temperature 94.5 F L Pulse Rate 74 Pulse Rate [ 74 Apical] Respiratory 33 H 23 H Rate Blood Pressure 82/44 L Blood Pressure 75/32 L [Right Arm] O2 Sat by Pulse 93 L 99 94 L Oximetry (%) 01/13/20 01/13/20 01/13/20 13:55 15:47 16:55 Temperature 94.7 F L Pulse Rate Pulse Rate [ 74 92 H Apical] Respiratory 28 H 31 H Rate Blood Pressure Blood Pressure 103/58 L 93/39 L [Right Arm] O2 Sat by Pulse 100 94 L Oximetry (%) GENERAL: Awake, alert, on NRB: NAD EYES: PEERLA: EOMI; no scleral icterus NECK: no JVD: no lymphadenopathy LUNGS: rales and crackles appreciated b/l HEART: RRR, normal S1 and S2 without murmur, rub or gallop. ABDOMEN: + distention; no wincing upon palpation tympanic upon percussison. MUSCULOSKELETAL: Normal range of motion at all joints. No bony deformities or tenderness. No CVA tenderness. EXTREMITIES: contracted; warm; well-perfused PSYCHIATRIC: Cooperative. Good eye contact. Appropriate mood and affect. SKIN: Warm, dry, normal turgor, no rashes or lesions noted, normal capillary refill. Laboratory Results - last 24 hr 01/13/20 01/13/20 01/13/20 12:24 12:24 12:24 WBC RBC Hgb Hct MCV MCH MCHC RDW Plt Count MPV Absolute Neuts (auto) Neutrophils % Lymphocytes % Monocytes % Eosinophils % Basophils % Nucleated RBC % PT with INR INR PTT (Actin FS) VBG pH 7.449 H POC VBG pCO2 36.7 L POC VBG pO2 99.6 H VBG HCO3 24.9 VBG O2 Sat (Renzo) 97.8 H VBG Base Excess 1.2 Sodium Cancelled Potassium Cancelled Chloride Cancelled Carbon Dioxide Cancelled Anion Gap Cancelled BUN Cancelled Creatinine Cancelled Est GFR (CKD-EPI)AfAm Cancelled Est GFR (CKD-EPI)NonAf Cancelled Random Glucose Cancelled Lactic Acid 0.9 Calcium Cancelled Total Bilirubin Cancelled AST Cancelled ALT Cancelled Alkaline Phosphatase Cancelled Troponin I Total Protein Cancelled Albumin Cancelled 01/13/20 01/13/20 01/13/20 12:29 12:29 12:44 WBC 9.8 RBC 4.41 Hgb 15.0 Hct 44.5 MCV 100.9 H MCH 34.0 H MCHC 33.7 RDW 15.8 Plt Count 208 MPV 11.5 H D Absolute Neuts (auto) 7.2 Neutrophils % 73.0 Lymphocytes % 19.9 Monocytes % 5.1 Eosinophils % 1.8 Basophils % 0.2 Nucleated RBC % 0 PT with INR 12.90 INR 1.09 PTT (Actin FS) 39.5 H VBG pH POC VBG pCO2 POC VBG pO2 VBG HCO3 VBG O2 Sat (Renzo) VBG Base Excess Sodium 135 L Potassium 9.3 H* Chloride 104 Carbon Dioxide 29 Anion Gap 2 L BUN 18.9 H Creatinine 0.7 Est GFR (CKD-EPI)AfAm 154.17 Est GFR (CKD-EPI)NonAf 133.02 Random Glucose 73 L Lactic Acid Calcium 8.9 Total Bilirubin 0.2 AST 139 H ALT 101 H Alkaline Phosphatase 285 H Troponin I < 0.02 Total Protein 8.7 H Albumin 3.3 L 01/13/20 13:56 WBC RBC Hgb Hct MCV MCH MCHC RDW Plt Count MPV Absolute Neuts (auto) Neutrophils % Lymphocytes % Monocytes % Eosinophils % Basophils % Nucleated RBC % PT with INR INR PTT (Actin FS) VBG pH POC VBG pCO2 POC VBG pO2 VBG HCO3 VBG O2 Sat (Renzo) VBG Base Excess Sodium 143 Potassium 4.3 Chloride 110 H Carbon Dioxide 29 Anion Gap 4 L BUN 17.9 Creatinine 0.6 Est GFR (CKD-EPI)AfAm 164.25 Est GFR (CKD-EPI)NonAf 141.72 Random Glucose 81 Lactic Acid Calcium 8.6 Total Bilirubin AST ALT Alkaline Phosphatase Troponin I Total Protein Albumin ASSESSMENT/PLAN: 24 Y Male with a PMH of Cerebral Palsy, epilespsy, herpes encephalitis, GERD, Aspiration pneumonia, Dysphagia s/p G-tube, presents to ED from [facility] facility with hypoxia and respiratory distress #Acute hypoxic respiratory failure likely 2/2 to aspiration pneumonia - Multiple previous admissions with similar episodes - Chest CT showing multiple areas of consolidation c/w aspiration PNA - Previous sputum cultures positive for Pseudomonas - c/w vanc/zosyn - Supplemental O2 to keep SpO2 >90% - Albuterol neb prn - f/u with sputum culture, blood culture, and urine culture and urine legionella antigen - Continue N/S @ 100 - Keeping HOB > 30 degrees - COVID pending - Lactic acid pending -will consult ID and pulm #Sepsis 2/2 pneumonia - lactic acid pending - c/w vanc zosyn - f/u with sputum culture, blood culture, and urine culture and urine legionella antigen - covid pending - ID consult -NS @100mls -maintain MAP >65 ##Fecal impaction w/ileus - CT was significant for stool impaction w/ gaseous distention showing to be an ileus at the level of the sigmoid colon - will give Rectal enemas and Colace -rectal tube -repeat KUB in AM to assess ileus - will reevaluate in the morning and if not improving will consult surgery for further recommendations #Transaminitis likely 2/2 sepsis - RUQ US ordered - Patient has had elevated liver enzymes upon previous admissions - Will continue to trend LFTs #Hx of seizures - Currently asymptomatic - Will continue home meds #Hx of herpes encephalitis - Continue acyclovir 400 BID #FEN - N/S @ 100 - monitor electrolytes - NPO for now #DVT PPX - Lovenox 40mg sq daily #Disposition: - full code - Will continue to monitor patient on MS Family Medical History Family History: Unable to Obtain Problem List - Problem (1) Bowel obstruction Code(s): K56.609 - UNSP INTESTNL OBST, UNSP TO PARTIAL VERSUS COMPLETE OBST (2) Fecal impaction Code(s): K56.41 - FECAL IMPACTION (3) Pneumonia Code(s): J18.9 - PNEUMONIA, UNSPECIFIED ORGANISM (4) Sepsis Code(s): A41.9 - SEPSIS, UNSPECIFIED ORGANISM Qualifiers: Sepsis type: sepsis due to unspecified organism Sepsis acute organ dysfunction status: unspecified Qualified Code(s): A41.9 - Sepsis, unspecified organism (5) Acute hypoxemic respiratory failure Code(s): J96.01 - ACUTE RESPIRATORY FAILURE WITH HYPOXIA Visit type - Emergency Visit Emergency Visit: Yes Care time: The patient presented to the Emergency Department on the above date and was hospitalized for further evaluation of their emergent condition. - New Patient This patient is new to me today: Yes Date on this admission: 01/13/20 - Critical Care Critical Care patient: No ATTENDING PHYSICIAN STATEMENT I saw and evaluated the patient. I reviewed the resident's note and discussed the case with the resident. I agree with the resident's findings and plan as documented. SUBJECTIVE: OBJECTIVE: ASSESSMENT AND PLAN:
--- NOTE | 2020-01-13 18:24 | PN ---
Teaching Attending Note Name of Resident: Tammy Almodovar ATTENDING PHYSICIAN STATEMENT I saw and evaluated the patient. I reviewed the resident's note and discussed the case with the resident. I agree with the resident's findings and plan as documented. SUBJECTIVE: 24yo M well-known to our service with PMhx Cerebral Palsy, epilespsy, herpes encephalitis, GERD, Aspiration pneumonia, Dysphagia s/p G-tube who presents from [place] due to hypoxia and respiratory distress. Patient noted to be saturating in the high 70's during routine care and was give duoneb with oxygen supplementation. Patient was transported to ED for further evaluation. Patient presents similarly in the past with frequent aspiration related to ileus and suspected Olgavie's. On this admission patient was hypotensive down to MAP of 50 with response of fluids bolusing. Patient noted to improve saturation to 94% on NRB. Patient is unable to provide more history secondary to his chronic medical problems. OBJECTIVE: Vital Signs Temperature 97.8 F 01/13/20 19:19 Pulse Rate 92 H 01/13/20 16:55 Respiratory Rate 31 H 01/13/20 16:55 Blood Pressure 93/39 L 01/13/20 16:55 O2 Sat by Pulse Oximetry (%) 94 L 01/13/20 16:55 GENERAL: Awake, alert, NAD HEENT: MINNA, no scleral icterus, dry mucosa with minimal secretions noted NECK: no JVD: no lymphadenopathy LUNGS: rales and crackles appreciated b/l HEART: RRR, normal S1 and S2 without murmur, rub or gallop. ABDOMEN: + distention; no wincing upon palpation tympanic upon percussison. MUSCULOSKELETAL: Normal range of motion at all joints. No bony deformities or tenderness. No CVA tenderness. EXTREMITIES: contracted; warm; well-perfused PSYCHIATRIC: Cooperative. Good eye contact. Appropriate mood and affect. SKIN: Warm, dry, normal turgor, no rashes or lesions noted, normal capillary refill. CBC, BMP 01/13/20 12:44 01/13/20 13:56 ASSESSMENT AND PLAN: Acute hypoxic respiratory failure 2/2 aspiration PNA Severe sepsis 2/2 above Ileus secondary to fecal impaction Transaminitis History of Seizures History of encephalitis --Chest CT reviewed; aspiration pneumonia noted with consolidating infiltrate of R mid and lower lobe > L upper and lower --Vancomycin/Zosyn for coverage with ID consultation --IVF hydration --Supplemental O2 as needed to maintain SpO2 >90% --Will f/u BCx, Sputum and UCx --Trend lactate --Likely aspiration due to ileus 2/2 fecal impaction --CT A/P reviewed --Bowel Regimen and decompression with rectal tube --KUB assessment as needed for resolution of ileus --Trend LFTs; possible hypoperfusion 2/2 sepsis syndrome --Continue home medications for seizure and encephalitis history Dispo: Admit; monitor hemodynamics and if begins to decline may need ICU evaluation Clifford Williamson DO - IM
[2020-01-13] MEDS ORDERED: BACLOFEN 10 MG TABLET (FP) ONE (20:58)
[2020-01-13] MEDS ORDERED: ACYCLOVIR 200 MG CAPSULE ONE (20:58)
[2020-01-13] MEDS ORDERED: cloBAZam 10 MG TABLET ONE (20:58)
[2020-01-13] MEDS ORDERED: lamoTRIgine 100 MG TABLET ONE (20:58)
[2020-01-13] MEDS ORDERED: PIPERACILLIN/TAZOB 4.5 GM 4.5 GM in DEXTROSE 5%-WATER 100 ML IVPB SCH (21:00)
[2020-01-13] MEDS: BACLOFEN 10 MG TABLET (FP) GT SCH (21:03)
[2020-01-13] MEDS: PHENobarbital 20 MG/5 ML UNIT-DOSE CUP GT SCH (21:03)
[2020-01-13] MEDS: cloBAZam 10 MG TABLET GT SCH (21:03)
[2020-01-13] MEDS ORDERED: PHENobarbital 30 MG TABLET ONE (21:06)
[2020-01-13] MEDS: SODIUM CHLORIDE 1,000 ML IV SCH (22:07)
[2020-01-13] MEDS: BUDESONIDE 0.25 MG/2ML INH SUSP VIAL NEB SCH (22:53)
[2020-01-13] MEDS: DOCUSATE NA 100 MG/10 ML UNIT-DOSE CUPS GT SCH (22:53)
[2020-01-13] MEDS: ACYCLOVIR 200 MG/5 ML LIQUID GT SCH (22:53)
[2020-01-14] MEDS ORDERED: VANCOMYCIN HCL 1,250 MG in DEXTROSE 5%-WATER - 250 ML IVPB SCH (00:30)
[2020-01-14] MEDS ORDERED: SODIUM CHLORIDE 500 ML IV STA (00:32)
[2020-01-14] MEDS ORDERED: SODIUM CHLORIDE 250 ML IV STA (00:40)
[2020-01-14] MEDS ORDERED: PIPERACILLIN/TAZOB 3.375 GM 3.375 GM in DEXTROSE 5%-WATER - 50 ML IVPB SCH (02:00)
[2020-01-14 02:26] LABS: EPI CELLS 25 /uL (0-25.1); HYALINE CASTS 2 /uL (0-3.1); URINE APPEARANCE CLEAR; URINE BACTERIA 14 /uL (0-1359); URINE BILIRUBIN NEGATIVE (NEGATIVE); URINE COLOR YELLOW; URINE GLUCOSE (UA) NEGATIVE (NEGATIVE); URINE KETONE NEGATIVE (NEGATIVE); URINE LEUK ESTERASE TRACE (NEGATIVE); URINE NITRITE NEGATIVE (NEGATIVE); URINE PROTEIN NEGATIVE (NEGATIVE); URINE RBC 3 /uL (0-23.9); URINE UROBILINOGEN 0.2 mg/dL (0.2-1.0); URINE WBC 13 /uL (0-25.8)
[2020-01-14] MEDS ORDERED: PIPERACILLIN/TAZOB 3.375 GM 3.375 GM/50 ML BAG IVPB ONE ×2 (02:52→09:00)
[2020-01-14] MEDS ORDERED: VANCOMYCIN 1,250 MG in DEXTROSE 5%-WATER - 250 ML IVPB SCH (03:00)
[2020-01-14] MEDS ORDERED: SODIUM CHLORIDE 0.9% 500 ML INFUS.BAG IV ONE ×2 (05:00→07:18)
--- NOTE | 2020-01-14 07:18 | PN ---
Progress Note (short form) - Note Progress Note: Called to assess patient has he was dropping his blood pressure. MAPs in low 50s. Pt appears volume overloaded. Pt being treated for sepsis 2/2 to aspiration pna. Currently pt is going into septic shock due to dropping blood pressure. Will consult ICU for admission and start with 1L bolus NS and if not responsive will give pressors and place central line. Already notified ED team and ICU aware.
[2020-01-14] MEDS: SODIUM CHLORIDE 0.9% 500 ML INFUS.BAG IV ONE ×2 (07:19→07:20)
[2020-01-14] MEDS ORDERED: PT OWN MED DRAWER 7, Y5N ONE ×2 (08:12→21:55)
[2020-01-14] MEDS: BUDESONIDE 0.25 MG/2ML INH SUSP VIAL NEB SCH ×2 (08:18→20:28)
--- NOTE | 2020-01-14 08:45 | PN ---
Progress Note (short form) - Note Progress Note: ID consult dictated imp/reccd hypoxia aspiration pneumonia stool impaction abnormal LFTS continue zosyn f/u cultures f//u liver sonogram treat stool impaction Problem List - Problems (1) Hypoxia Code(s): R09.02 - HYPOXEMIA (2) Pneumonia Code(s): J18.9 - PNEUMONIA, UNSPECIFIED ORGANISM (3) Fecal impaction Code(s): K56.41 - FECAL IMPACTION (4) Abnormal LFTs Code(s): R94.5 - ABNORMAL RESULTS OF LIVER FUNCTION STUDIES (5) Seizure Code(s): R56.9 - UNSPECIFIED CONVULSIONS (6) History of encephalitis Code(s): Z86.61 - PERSONAL HISTORY OF INFECTIONS OF THE CENTRAL NERVOUS SYSTEM
[2020-01-14] MEDS ORDERED: BACLOFEN 10 MG TABLET (FP) ONE (08:59)
[2020-01-14] MEDS ORDERED: ENOXAPARIN NA (PORCINE) 40 MG/0.4 ML DISP.SYRIN SQ ONE (09:00)
[2020-01-14 09:05] LABS: BASO % 0.1 % (0-2.0); HEMATOCRIT 40.6 % (35.4-49); HEMOGLOBIN 13.8 GM/dL (11.7-16.9); LYMPH % 2.7 % (8-40); MCH 34.3 pg (25.7-33.7); MCHC 33.9 g/dl (32.0-35.9); MEAN CELL VOLUME 101.1 fl (80-96); MEAN PLT VOLUME 10.4 fl (7.5-11.1); MONO % 3.6 % (3.8-10.2); NEUT % 92.6 % (42.8-82.8); PLATELET COUNT 163 K/MM3 (134-434); RBC 4.01 M/mm3 (4.00-5.60); RDW 15.7 % (11.9-15.9); WHITE BLOOD COUNT 12.4 K/mm3 (4.0-10.0)
--- NOTE | 2020-01-14 09:14 | PN ---
Progress Note (short form) - Note Progress Note: PULMONARY CONSULTATION DICTATED 01/14/20 IMP ACUTE HYPOXEMIC RESPIRATORY FAILURES BILATERAL PNEUMONIA ? ASPIRATION CEREBRAL PALSY HYPOTENSION SEIZURE DISORDER SEVERE MENTAL RETADATION H/O HERPES ENCEPHALITIS GERD DYSPHAGIA ELEVATED LFTS PLAN SUPPLEMENTAL O2 TO MAINTAIN O2 SAT 90% OR GREATER INHALED BRONCHODILATORS ABX PER ID TREND LFTS IVF F/U CHEST X-RAYS DR VILLALTA Problem List - Problems (1) Abnormal LFTs Code(s): R94.5 - ABNORMAL RESULTS OF LIVER FUNCTION STUDIES (2) History of encephalitis Code(s): Z86.61 - PERSONAL HISTORY OF INFECTIONS OF THE CENTRAL NERVOUS SYSTEM (3) Hypoxia Code(s): R09.02 - HYPOXEMIA (4) Pneumonia Code(s): J18.9 - PNEUMONIA, UNSPECIFIED ORGANISM (5) Sepsis Code(s): A41.9 - SEPSIS, UNSPECIFIED ORGANISM Qualifiers: Sepsis type: sepsis due to unspecified organism Sepsis acute organ dysfunction status: unspecified Qualified Code(s): A41.9 - Sepsis, unspecified organism (6) Acute hypoxemic respiratory failure Code(s): J96.01 - ACUTE RESPIRATORY FAILURE WITH HYPOXIA (7) Epilepsy Code(s): G40.909 - EPILEPSY, UNSP, NOT INTRACTABLE, WITHOUT STATUS EPILEPTICUS (8) Hypotension Code(s): I95.9 - HYPOTENSION, UNSPECIFIED (9) Profound mental retardation Code(s): F73 - PROFOUND INTELLECTUAL DISABILITIES (10) Aspiration pneumonia Code(s): J69.0 - PNEUMONITIS DUE TO INHALATION OF FOOD AND VOMIT
[2020-01-14 09:27] LABS: ALBUMIN 2.9 g/dl (3.4-5.0); BILIRUBIN,TOTAL 0.5 mg/dL (0.2-1); BLOOD UREA NITROGEN 8.8 mg/dL (7-18); CALCIUM 8.3 mg/dL (8.5-10.1); CREATININE 0.5 mg/dL (0.55-1.3); MAGNESIUM 1.9 mg/dL (1.8-2.4); PHOSPHOROUS 3.4 mg/dL (2.5-4.9); POTASSIUM 4.6 mmol/L (3.5-5.1); TOT PROT 7.1 g/dl (6.4-8.2)
[2020-01-14] MEDS: DOCUSATE NA 100 MG/10 ML UNIT-DOSE CUPS GT SCH ×2 (09:46→22:42)
[2020-01-14] MEDS: PIPERACILLIN/TAZOB 3.375 GM 3.375 GM in DEXTROSE 5%-WATER - 50 ML IVPB SCH ×2 (09:46→17:50)
[2020-01-14] MEDS: ACYCLOVIR 200 MG/5 ML LIQUID GT SCH ×2 (09:46→22:43)
[2020-01-14] MEDS: PHENobarbital 20 MG/5 ML UNIT-DOSE CUP GT SCH ×2 (09:46→22:43)
[2020-01-14] MEDS: BACLOFEN 10 MG TABLET (FP) GT SCH ×2 (09:46→22:44)
[2020-01-14] MEDS: ENOXAPARIN NA (PORCINE) 40 MG/0.4 ML DISP.SYRIN SQ SCH (09:46)
--- NOTE | 2020-01-14 10:54 | CONS ---
DATE OF CONSULTATION: DATE OF DICTATION: 01/14/2020 CHIEF COMPLAINT: This is a 24-year-old man. He has a history of cerebral palsy, seizure disorder, who lives at the [facility]. He presents to the emergency room with hypoxia and respiratory distress. His oxygen was as low as the high 70s and low 80s. He was given a DuoNeb without any improvement and brought to the ER. He had a workup in the emergency room that included chest CT and abdominal CT. He was found to have bilateral infiltrates suspicious for aspiration and was noted to have a stool impaction. Labs were notable for abnormal LFTs. He was last hospitalized from November 21 to November 29. He received vancomycin and Zosyn in the ER. PAST MEDICAL HISTORY: Notable for cerebral palsy, seizure disorder. He had herpes encephalitis, GERD, aspiration pneumonia in the past. He has had respiratory failure in the past, dysphagia with a G-tube. He has been colonized with pansensitive pseudomonas on multiple admissions. He has functional quadriplegia. He has had multiple episodes of stool impaction. He has had a history of influenza A in the past as well. He has a G-tube as well. PAST SURGICAL HISTORY: He has had some corrective surgery on his legs. He has scars. ALLERGIES: He has no known drug allergies. MEDICATIONS: Include simethicone, phenobarbital, vitamins, acidophilus, Colace, famotidine, Benadryl, Diastat, clonazepam, Pulmicort, baclofen, acyclovir, and Tylenol p.r.n. SOCIAL HISTORY: He resides at the [facility]. REVIEW OF SYSTEMS: As per HPI. PHYSICAL EXAMINATION: Vital Signs: He is afebrile. Temperature is 98.6, pulse of 114. Blood pressure is 105/58. Respiratory rate is 38. He is saturating 95% on 4 L. HEENT: He is normocephalic. He is not responsive. Lungs: Have bilateral rhonchi. Heart: Regular rate and rhythm, tachycardic. Abdomen: Soft. He has a G-tube. Extremities: Contracted. LABORATORY: White count is 12.4. Hemoglobin is 13.8. Platelets are 163. BUN 8 and creatinine 0.5. LFTs on admission were 139 AST, ALT of 101, alkaline phosphatase of 285. They are trending down with AST of 54, ALT of 71, and an alkaline phosphatase of 243. IMAGING: Findings are as previously stated. SUMMARY: This is a 24-year-old man with hypoxia, aspiration pneumonia, stool impaction, abnormal liver function tests. He has a history of seizure disorder and encephalitis in the past and functional quadriplegia. Would continue Zosyn for aspiration pneumonia. Follow up his cultures. Follow up liver ultrasound. Would treat his stool impaction as well. Further recommendations to follow. OZZY THAYER M.D. [id number] MTDD
[2020-01-14 13:00] LABS: ANISOCYTOSIS 1+; MACROCYTOSIS 1+; PLATELET ESTIMATE NORMAL; TEAR DROP CELLS 1+; TOXIC GRANULATION 2+
--- NOTE | 2020-01-14 15:18 | CONSULT ---
Consult Consult Specialty:: PULM/CCM Referred by:: Jose Andrews Reason for Consultation:: Aspiration PNA - History of Present Illness Chief Complaint: Aspiration PNA History of Present Illness: 24yo M with PMhx Cerebral Palsy, epilespsy, herpes encephalitis, GERD, Aspiration pneumonia, Dysphagia s/p G-tube who presents from [place] due to hypoxia and respiratory distress secondary to recurrent aspiration PNA shown on CXR. Patient presents similarly in the past with frequent aspiration related to ileus and suspected Olgavie's. On this admission patient was hypotensive down to MAP of 50 with response of fluids bolusing. Transferred to ICU for further management. 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) Pulmonary: Yes: Asthma, Pneumonia Gastrointestinal: Yes: Other (gastrostomy) Infectious Disease: Yes: Herpes Zoster Musculoskeletal: Yes: Other (Functional Qaudraplegic) - Alcohol/Substance Use Hx Alcohol Use: No - Smoking History Smoking history: Never smoked Have you smoked in the past 12 months: No Aproximately how many cigarettes per day: 0 - Social History Usual Living Arrangement: Prison ADL: Support Services History of Recent Travel: No Home Medications - Allergies Allergies/Adverse Reactions: Allergies Allergy/AdvReac Type Severity Reaction Status Date / Time No Known Allergies Allergy Verified 06/11/19 09:59 - Home Medications Home Medications: Ambulatory Orders Acyclovir 400 mg GT BID 04/25/17 Baclofen 5 mg GT BID 04/25/17 Clobazam [Onfi -] 10 mg GT HS 04/25/17 Clonazepam 0.5 mg GT TID 04/25/17 Lamotrigine 200 mg GT BID 04/25/17 Multivitamin [Poly-Vitamin] 1 each GT HS 04/25/17 Phenobarbital 45 mg GT BID 04/25/17 Diazepam Rectal Gel [Diastat Rectal Gel -] 7.5 mg [place] PRN PRN 05/23/18 Protein Supplement [Promod] 1,190 ml GT DAILY 05/23/18 Budesonide [Pulmicort 0.25 mg Nebulizer -] 1 neb IH BID 02/05/19 Fluticasone Prop 0.05% Nasal [Flonase -] 2 spray NS AM 02/05/19 Magnesium Hydrox 2400MG/30Ml [Milk of Magnesia -] 20 ml GT BID 02/05/19 Albuterol 2.5/Ipratropium 0.5 [Duoneb -] 1 neb IH QID PRN #30 neb 02/14/19 Sodium Chloride/Aloe Vera [[place] Saline Nasal Gel [place]] 22 ml NS BID 06/01/19 Bisacodyl 10 mg RC PRN PRN 11/22/19 Diphenhydramine [Benadryl 12.5 MG/5 ML Oral Solution -] 25 mg PO Q6H PRN 11/22/19 Famotidine 10 mg PO BID 11/22/19 Lactobacillus Acidophilus [Acidophilus] 1 each PO HS 11/22/19 Simethicone Liquid [Mylicon Liquid -] 40 mg PO QID PRN 11/22/19 Acetaminophen Oral Solution [Tylenol Oral Solution -] 650 mg GT Q6H PRN soln.oral 11/29/19 Docusate Liquid [Colace Liquid -] 100 mg GT BID ud 11/29/19 Family Medical History Family History: Unable to Obtain Physical Exam Vital Signs: Vital Signs Temperature 97.4 F L 01/14/20 12:00 Pulse Rate 114 H 01/14/20 12:00 Respiratory Rate 40 H 01/14/20 12:00 Blood Pressure 114/53 L 01/14/20 12:00 O2 Sat by Pulse Oximetry (%) 94 L 01/14/20 12:00 Constitutional: Yes: No Distress, Calm, Cachectic Eyes: Yes: WNL HENT: Yes: WNL, Atraumatic, Normocephalic, Drooling Neck: Yes: Supple, Trachea Midline, Decreased ROM Cardiovascular: Yes: WNL, Regular Rate and Rhythm, S1, S2 Respiratory: Yes: Regular, On Nasal O2, Rhonchi Gastrointestinal: Yes: Distention ...Rectal Exam: Yes: Deferred Renal/: Yes: WNL, Lane Present Breast(s): Yes: WNL Musculoskeletal: Yes: Joint Stiffness, Other (patient has CP) Extremities: Yes: Pallor Edema: Yes Edema: LUE: 1+, RUE: 1+ Integumentary: Yes: WNL Labs: CBC, BMP 01/14/20 08:40 01/14/20 08:40 Problem List - Problems (1) Aspiration pneumonia Code(s): J69.0 - PNEUMONITIS DUE TO INHALATION OF FOOD AND VOMIT (2) Chronic constipation Code(s): K59.09 - OTHER CONSTIPATION (3) Hypotension Code(s): I95.9 - HYPOTENSION, UNSPECIFIED (4) Seizure Code(s): R56.9 - UNSPECIFIED CONVULSIONS (5) Transaminitis Code(s): R74.0 - NONSPEC ELEV OF LEVELS OF TRANSAMNS & LACTIC ACID DEHYDRGNSE (6) Fecal impaction in rectum Code(s): K56.41 - FECAL IMPACTION Assessment/Plan 24yo M with PMhx Cerebral Palsy, epilespsy, herpes encephalitis, GERD, Aspiration pneumonia, Dysphagia s/p G-tube who presents from [place] due to hyp oxia and respiratory distress secondary to recurrent aspiration PNA related to ileus and suspected Olgavie's. -Titrate FiO2 for SaO2 >92% -Will plcace on BIPAP (patient is BIPAP dependent at [place]) -Continue Vanco and Zosyn -ID recs appreciated -No need for pressors at this time, pt HDS -IVF -Follow up on cultures -Bowel regiment -Liver enzymes improving -Continue home medications for seizure and encephalitis history Dispo: patient remains full code Maricruz Gracia ACNP 1003
--- NOTE | 2020-01-14 15:39 | PN ---
Physical Exam: SUBJECTIVE: Patient seen and examined. Saturating well on nasal cannula. Continuing abx for aspiration pneumonia. OBJECTIVE: Vital Signs Period Temp Pulse Resp BP Sys/Linares Pulse Ox Last 24 Hr 94.7 F-98.9 F 74-115 21-40 78-114/36-68 93-99 GENERAL: Lying in bed NAD, on nasal cannula. Diaphoretic. HEENT: NCAT. MMM. PERRLA. LUNGS: B/l rhonchi noted throughout all lungs nascimento, greatest at bases HEART: RRR S1S2 no m/r/g ABDOMEN: Soft, NT, ND. +BS. G tube us in place c/d/i no signs of infection EXTREMITIES: 2+ pulses, warm, well-perfused, no extr. edema. Contracted (baseline). SKIN: Warm, dry, normal turgor Laboratory Results - last 24 hr 01/13/20 01/13/20 01/14/20 12:24 12:42 01:15 WBC RBC Hgb Hct MCV MCH MCHC RDW Plt Count MPV Absolute Neuts (auto) Neutrophils % Neutrophils % (Manual) Band Neutrophils % Lymphocytes % Lymphocytes % (Manual) Monocytes % Monocytes % (Manual) Eosinophils % Eosinophils % (Manual) Basophils % Basophils % (Manual) Myelocytes % (Man) Promyelocytes % (Man) Blast Cells % (Manual) Nucleated RBC % Metamyelocytes Hypochromia Toxic Granulation Platelet Estimate Platelet Comment Polychromasia Poikilocytosis Anisocytosis Microcytosis Macrocytosis Spherocytes Tear Drop Cells Sodium Potassium Chloride Carbon Dioxide Anion Gap BUN Creatinine Est GFR (CKD-EPI)AfAm Est GFR (CKD-EPI)NonAf Random Glucose Calcium Phosphorus Magnesium Total Bilirubin AST ALT Alkaline Phosphatase Total Protein Albumin Urine Color Yellow Urine Appearance Clear Urine pH 7.0 Ur Specific Merkel 1.024 Urine Protein Negative Urine Glucose (UA) Negative Urine Ketones Negative Urine Blood Negative Urine Nitrite Negative Urine Bilirubin Negative Urine Urobilinogen 0.2 Ur Leukocyte Esterase Trace Urine WBC (Auto) 13 Urine RBC (Auto) 3 Urine Casts (Auto) 2 U Epithel Cells (Auto) 25 Urine Bacteria (Auto) 14 Phenobarbital 19 COVID-19 (JOSEPHINE) Not detected 01/14/20 01/14/20 08:40 08:40 WBC 12.4 H RBC 4.01 Hgb 13.8 Hct 40.6 MCV 101.1 H MCH 34.3 H MCHC 33.9 RDW 15.7 Plt Count 163 D MPV 10.4 Absolute Neuts (auto) 11.5 H Neutrophils % 92.6 H D Neutrophils % (Manual) 75.0 D Band Neutrophils % 17.0 Lymphocytes % 2.7 L D Lymphocytes % (Manual) 3.0 L D Monocytes % 3.6 L Monocytes % (Manual) 2 L Eosinophils % 1.0 Eosinophils % (Manual) 1.0 D Basophils % 0.1 Basophils % (Manual) 0.0 Myelocytes % (Man) 0 Promyelocytes % (Man) 0 Blast Cells % (Manual) 0 Nucleated RBC % 0 Metamyelocytes 1 D Hypochromia 0 Toxic Granulation 2+ Platelet Estimate Normal Platelet Comment Present Polychromasia 0 Poikilocytosis 1+ Anisocytosis 1+ Microcytosis 0 Macrocytosis 1+ Spherocytes 2+ Tear Drop Cells 1+ Sodium 141 Potassium 4.6 Chloride 112 H Carbon Dioxide 22 Anion Gap 6 L BUN 8.8 Creatinine 0.5 L Est GFR (CKD-EPI)AfAm 177.03 Est GFR (CKD-EPI)NonAf 152.75 Random Glucose 78 Calcium 8.3 L Phosphorus 3.4 Magnesium 1.9 Total Bilirubin 0.5 AST 54 H ALT 71 H Alkaline Phosphatase 243 H Total Protein 7.1 Albumin 2.9 L Urine Color Urine Appearance Urine pH Ur Specific Merkel Urine Protein Urine Glucose (UA) Urine Ketones Urine Blood Urine Nitrite Urine Bilirubin Urine Urobilinogen Ur Leukocyte Esterase Urine WBC (Auto) Urine RBC (Auto) Urine Casts (Auto) U Epithel Cells (Auto) Urine Bacteria (Auto) Phenobarbital COVID-19 (JOSEPHINE) Active Medications Generic Name Dose Route Start Last Admin Trade Name Freq PRN Reason Stop Dose Admin Acyclovir 400 mg 01/13/20 22:00 01/14/20 09:46 Zovirax Oral Suspension - GT 400 mg BID JORGE Administration Albuterol/Ipratropium 1 amp 01/13/20 17:34 Duoneb - NEB QID PRN WHEEZING Baclofen 5 mg 01/13/20 22:00 01/14/20 09:46 Lioresal - GT 5 mg BID JORGE Administration Bisacodyl 10 mg 01/13/20 17:34 Dulcolax Suppository - RC PRN PRN CONSTIPATION Budesonide 1 amp 01/13/20 20:00 01/14/20 08:18 Pulmicort 0.25 Mg Nebulizer - NEB 1 amp RBID JORGE Administration Clobazam 10 mg 01/13/20 22:00 01/13/20 21:03 Onfi - GT 10 mg HS JORGE Administration Diazepam 7.5 mg 01/13/20 17:34 Diastat Rectal Gel - RC PRN PRN <Seizures> Docusate Sodium 100 mg 01/13/20 22:00 01/14/20 09:46 Colace Liquid - GT 100 mg BID JORGE Administration Enoxaparin Sodium 40 mg 01/14/20 10:00 01/14/20 09:46 Lovenox - SQ 40 mg DAILY JORGE Administration Sodium Chloride 1,000 mls @ 100 mls/hr 01/13/20 18:00 01/13/20 22:07 Normal Saline - IV 100 mls/hr ASDIR JORGE Administration Piperacillin Sod/Tazobactam 50 mls @ 100 mls/hr 01/14/20 10:00 01/14/20 09:46 Sod 3.375 gm/ Dextrose IVPB 100 mls/hr Q8H-IV JORGE Administration Protocol Lamotrigine 200 mg 01/13/20 22:00 01/14/20 09:46 Lamictal - PO 200 mg BID JORGE Administration Phenobarbital 45 mg 01/13/20 22:00 01/14/20 09:46 Phenobarbital Liquid - GT 45 mg BID JORGE Administration ASSESSMENT/PLAN: 24 y.o. M PMH of Cerebral Palsy, epilepsy, herpes encephalitis, GERD, Aspiration pneumonia, Dysphagia s/p G-tube, presents to ED from [facility] facility with hypoxia and respiratory distress #Acute hypoxic respiratory failure 2/2 to aspiration pneumonia #Sepsis -Chest CT showing b/l lower lobe and left upper lobe aspiration PNA -cx's for sputum sent; previously + in the past for pseudomonas -continue with zosyn' s/p 1 dose vanc -ID Dr. Rosenthal following -supplemental O2, maintain SaO2 >90% -prn albuterol nebs -f/u blood & urine cx's, urine for s. pneumo & legionella ag -aspiration precautions -COVID-19 PCR negative -Pulm Dr. Matute consulted -Maintain MAP >65 -PRN suctioning -monitor LFTs, incr likely in setting of sepsis, now downtrending #Fecal impaction w/ileus -CT abd showing stool present up to sigmoid colon with extensive gaseous distention in proximal large bowel -rectal tube in place -f/u repeat KUB #Hx of seizures -Currently asymptomatic -continue home meds #Hx of herpes encephalitis -Continue acyclovir 400 BID #FEN -N/S @ 100 -monitor electrolytes -NPO #DVT PPX -Lovenox 40mg sq daily #Disposition: -full code monitor on telemetry Visit type - Emergency Visit Emergency Visit: Yes ED Registration Date: 01/13/20 Care time: The patient presented to the Emergency Department on the above date and was hospitalized for further evaluation of their emergent condition. - New Patient This patient is new to me today: Yes Date on this admission: 01/14/20 - Critical Care Critical Care patient: No ATTENDING PHYSICIAN STATEMENT I saw and evaluated the patient. I reviewed the resident's note and discussed the case with the resident. I agree with the resident's findings and plan as documented. SUBJECTIVE: OBJECTIVE: ASSESSMENT AND PLAN:
--- NOTE | 2020-01-14 17:38 | PN ---
Teaching Attending Note Name of Resident: Sweetie Cobb ATTENDING PHYSICIAN STATEMENT I saw and evaluated the patient. I reviewed the resident's note and discussed the case with the resident. I agree with the resident's findings and plan as documented. SUBJECTIVE: Comfortable no new change OBJECTIVE: Vital Signs Period Temp Pulse Resp BP Sys/Linares Pulse Ox Last 24 Hr 96.2 F-98.9 F 91-115 21-40 78-124/36-68 93-99 Patient is comfortable HEENT normal Neck supple no JVD Lungs bilateral coarse breath sounds Abdomen G-tube in place Extremities no edema no cyanosis normal pulses Neurologically he is arousable but has contractures all over the body Skin no rash noted ASSESSMENT AND PLAN:
[2020-01-14] MEDS ORDERED: DEXTROSE 5%-WATER - 50 ML IVPB ONE ×2 (17:49→21:55)
[2020-01-14] MEDS ORDERED: PIPERACILLIN/TAZOBACTAM 3.375 GM VIAL IVPB ONE ×2 (17:49→21:55)
[2020-01-14] MEDS: cloBAZam 10 MG TABLET GT SCH (22:42)
[2020-01-14] MEDS: SODIUM CHLORIDE 1,000 ML IV SCH (22:42)
[2020-01-15] MEDS ORDERED: BISACODYL 10 MG SUPP.RECT PR ONE (00:46)
[2020-01-15] MEDS ORDERED: LACTULOSE 20 GM/30 ML UDC (FOR ORAL USE ONLY) PO ONE (01:11)
[2020-01-15] MEDS: PIPERACILLIN/TAZOB 3.375 GM 3.375 GM in DEXTROSE 5%-WATER - 50 ML IVPB SCH ×3 (01:42→18:00)
[2020-01-15] MEDS: BUDESONIDE 0.25 MG/2ML INH SUSP VIAL NEB SCH ×2 (07:45→20:35)
[2020-01-15] MEDS ORDERED: MAGNESIUM CITRATE 300 ML BOTTLE PEG ONE (08:22)
[2020-01-15] MEDS: SODIUM CHLORIDE 1,000 ML IV SCH ×2 (09:00→19:00)
[2020-01-15] MEDS ORDERED: PIPERACILLIN/TAZOBACTAM 3.375 GM VIAL IVPB ONE ×2 (09:37→18:22)
[2020-01-15] MEDS ORDERED: DEXTROSE 5%-WATER - 50 ML IVPB ONE ×2 (09:37→18:22)
[2020-01-15] MEDS ORDERED: PT OWN MED DRAWER 7, Y5N ONE (09:37)
[2020-01-15 09:57] LABS: BASO % 0.3 % (0-2.0); EOS % 5.2 % (0-4.5); HEMATOCRIT 39.8 % (35.4-49); HEMOGLOBIN 13.5 GM/dL (11.7-16.9); LYMPH % 16.7 % (8-40); MCHC 33.8 g/dl (32.0-35.9); MEAN CELL VOLUME 100.6 fl (80-96); MEAN PLT VOLUME 10.4 fl (7.5-11.1); MONO % 10.7 % (3.8-10.2); NEUT % 67.1 % (42.8-82.8); PLATELET COUNT 155 K/MM3 (134-434); RBC 3.96 M/mm3 (4.00-5.60); RDW 15.9 % (11.9-15.9); WHITE BLOOD COUNT 5.6 K/mm3 (4.0-10.0)
[2020-01-15] MEDS: PHENobarbital 20 MG/5 ML UNIT-DOSE CUP GT SCH ×2 (10:01→21:53)
[2020-01-15] MEDS: ENOXAPARIN NA (PORCINE) 40 MG/0.4 ML DISP.SYRIN SQ SCH (10:01)
[2020-01-15] MEDS: DOCUSATE NA 100 MG/10 ML UNIT-DOSE CUPS GT SCH ×2 (10:01→21:51)
[2020-01-15] MEDS: ACYCLOVIR 200 MG/5 ML LIQUID GT SCH ×2 (10:03→21:53)
[2020-01-15] MEDS: lamoTRIgine 100 MG TABLET PO SCH ×2 (10:04→21:51)
[2020-01-15] MEDS: BACLOFEN 10 MG TABLET (FP) GT SCH ×2 (10:04→21:51)
[2020-01-15 10:23] LABS: ALBUMIN 2.8 g/dl (3.4-5.0); BILIRUBIN,TOTAL 0.3 mg/dL (0.2-1); BLOOD UREA NITROGEN 4.6 mg/dL (7-18); CALCIUM 8.8 mg/dL (8.5-10.1); CREATININE 0.5 mg/dL (0.55-1.3); MAGNESIUM 1.7 mg/dL (1.8-2.4); PHOSPHOROUS 3.7 mg/dL (2.5-4.9); POTASSIUM 3.4 mmol/L (3.5-5.1); TOT PROT 6.8 g/dl (6.4-8.2)
--- NOTE | 2020-01-15 12:33 | PN ---
Physical Exam: SUBJECTIVE: Patient seen and examined He is comfortable not agitated on BiPAP at this time alert reviewed respond to vocal command by opening eyes. OBJECTIVE: Vital Signs Period Temp Pulse Resp BP Sys/Linares Pulse Ox Last 24 Hr 96.2 F-961 F 65-106 18-34 90-128/42-95 93-100 GENERAL: Lying in bed NAD, on nasal cannula. Diaphoretic. HEENT: NCAT. MMM. PERRLA. LUNGS: B/l rhonchi noted throughout all lungs nascimento, greatest at bases HEART: RRR S1S2 no m/r/g ABDOMEN: Soft, NT, ND. +BS. G tube us in place c/d/i no signs of infection EXTREMITIES: 2+ pulses, warm, well-perfused, no extr. edema. Contracted (baseline). SKIN: Warm, dry, normal turgor Laboratory Results - last 24 hr 01/14/20 01/15/20 01/15/20 08:40 09:17 09:17 WBC 5.6 RBC 3.96 L Hgb 13.5 Hct 39.8 MCV 100.6 H MCH 34.0 H MCHC 33.8 RDW 15.9 Plt Count 155 MPV 10.4 Absolute Neuts (auto) 3.8 Neutrophils % 67.1 D Neutrophils % (Manual) 75.0 D Band Neutrophils % 17.0 Lymphocytes % 16.7 D Lymphocytes % (Manual) 3.0 L D Monocytes % 10.7 H D Monocytes % (Manual) 2 L Eosinophils % 5.2 H D Eosinophils % (Manual) 1.0 D Basophils % 0.3 Basophils % (Manual) 0.0 Myelocytes % (Man) 0 Promyelocytes % (Man) 0 Blast Cells % (Manual) 0 Nucleated RBC % 0 0 Metamyelocytes 1 D Hypochromia 0 Toxic Granulation 2+ Platelet Estimate Normal Platelet Comment Present Polychromasia 0 Poikilocytosis 1+ Anisocytosis 1+ Microcytosis 0 Macrocytosis 1+ Spherocytes 2+ Tear Drop Cells 1+ Sodium 144 Potassium 3.4 L Chloride 111 H Carbon Dioxide 24 Anion Gap 8 BUN 4.6 L Creatinine 0.5 L Est GFR (CKD-EPI)AfAm 177.03 Est GFR (CKD-EPI)NonAf 152.75 Random Glucose 79 Calcium 8.8 Phosphorus 3.7 Magnesium 1.7 L Total Bilirubin 0.3 AST 70 H ALT 90 H Alkaline Phosphatase 296 H Total Protein 6.8 Albumin 2.8 L Active Medications Generic Name Dose Route Start Last Admin Trade Name Freq PRN Reason Stop Dose Admin Acyclovir 400 mg 01/13/20 22:00 01/15/20 10:03 Zovirax Oral Suspension - GT 400 mg BID JORGE Administration Albuterol/Ipratropium 1 amp 01/13/20 17:34 Duoneb - NEB QID PRN WHEEZING Baclofen 5 mg 01/13/20 22:00 01/15/20 10:04 Lioresal - GT 5 mg BID JORGE Administration Bisacodyl 10 mg 01/13/20 17:34 Dulcolax Suppository - RC PRN PRN CONSTIPATION Budesonide 1 amp 01/13/20 20:00 01/15/20 07:45 Pulmicort 0.25 Mg Nebulizer - NEB 1 amp RBID JORGE Administration Clobazam 10 mg 01/13/20 22:00 01/14/20 22:42 Onfi - GT 10 mg HS JORGE Administration Diazepam 7.5 mg 01/13/20 17:34 Diastat Rectal Gel - RC PRN PRN <Seizures> Docusate Sodium 100 mg 01/13/20 22:00 01/15/20 10:01 Colace Liquid - GT 100 mg BID JORGE Administration Enoxaparin Sodium 40 mg 01/14/20 10:00 01/15/20 10:01 Lovenox - SQ 40 mg DAILY JORGE Administration Sodium Chloride 1,000 mls @ 100 mls/hr 01/13/20 18:00 01/15/20 09:00 Normal Saline - IV 100 mls/hr ASDIR JORGE Administration Piperacillin Sod/Tazobactam 50 mls @ 100 mls/hr 01/14/20 10:00 01/15/20 10:06 Sod 3.375 gm/ Dextrose IVPB 100 mls/hr Q8H-IV JORGE Administration Protocol Lamotrigine 200 mg 01/14/20 22:16 01/15/20 10:04 Lamictal - PO 200 mg BID JORGE Administration Phenobarbital 45 mg 01/13/20 22:00 01/15/20 10:01 Phenobarbital Liquid - GT 45 mg BID JORGE Administration ASSESSMENT/PLAN: 24 y.o. M PMH of Cerebral Palsy, epilepsy, herpes encephalitis, GERD, Aspiration pneumonia, Dysphagia s/p G-tube, presents to ED from [facility] with hypoxia and respiratory distress Problem 1 acute hypoxemic respiratory failure due to pneumonia and sepsis Plan continue oxygen BiPAP nebulizers consult ID and consult pulmonary patient is comfortable responding well white cell count is coming down. #2 fecal impaction and I will yes still have rectal tube and having bowel movements. Will continue follow-up Problem #3 history of seizure he is seizure-free in the hospital we will continue to monitor. History of herpes encephalitis stable continue acyclovir Continue IV fluids and DVT prophylaxis and continue telemetry monitoring. Visit type - Emergency Visit Emergency Visit: Yes ED Registration Date: 01/13/20 Care time: The patient presented to the Emergency Department on the above date and was hospitalized for further evaluation of their emergent condition. - New Patient This patient is new to me today: No - Critical Care Critical Care patient: No - Discharge Referral Referred to [facility] Med P.C.: No
--- NOTE | 2020-01-15 12:41 | PN ---
Progress Note (short form) - Note Progress Note: PULM/CCM Pt seen & examined in the ICU. Pt is resting comfortable on Bi-Level (WINL). Still no reported BM. Active Medications Acyclovir (Zovirax Oral Suspension -) 400 mg GT BID [facility] Last Admin: 01/15/20 10:03 Dose: 400 mg Documented by: Albuterol/Ipratropium (Duoneb -) 1 amp NEB QID PRN PRN Reason: WHEEZING Baclofen (Lioresal -) 5 mg GT BID [facility] Last Admin: 01/15/20 10:04 Dose: 5 mg Documented by: Bisacodyl (Dulcolax Suppository -) 10 mg RC PRN PRN PRN Reason: CONSTIPATION Budesonide (Pulmicort 0.25 Mg Nebulizer -) 1 amp NEB RBID [facility] Last Admin: 01/15/20 07:45 Dose: 1 amp Documented by: Clobazam (Onfi -) 10 mg GT HS [facility] Last Admin: 01/14/20 22:42 Dose: 10 mg Documented by: Diazepam (Diastat Rectal Gel -) 7.5 mg RC PRN PRN PRN Reason: <Seizures> Docusate Sodium (Colace Liquid -) 100 mg GT BID [facility] Last Admin: 01/15/20 10:01 Dose: 100 mg Documented by: Enoxaparin Sodium (Lovenox -) 40 mg SQ DAILY [facility] Last Admin: 01/15/20 10:01 Dose: 40 mg Documented by: Sodium Chloride (Normal Saline -) 1,000 mls @ 100 mls/hr IV ASDIR [facility] Last Admin: 01/15/20 09:00 Dose: 100 mls/hr Documented by: Piperacillin Sod/Tazobactam (Sod 3.375 gm/ Dextrose) 50 mls @ 100 mls/hr IVPB Q8H-IV JORGE; Protocol Last Admin: 01/15/20 10:06 Dose: 100 mls/hr Documented by: Lamotrigine (Lamictal -) 200 mg PO BID [facility] Last Admin: 01/15/20 10:04 Dose: 200 mg Documented by: Phenobarbital (Phenobarbital Liquid -) 45 mg GT BID [facility] Last Admin: 01/15/20 10:01 Dose: 45 mg Documented by: Vital Signs Period Temp Pulse Resp BP Sys/Linares Pulse Ox Last 24 Hr 96.2 F-961 F 65-106 18-34 90-128/42-95 93-100 Intake & Output 01/12/20 01/13/20 01/14/20 01/15/20 23:59 23:59 23:59 23:59 Intake Total 2600 1900 1900 Output Total 1400 1600 Balance 2600 500 300 Weight 54.431 kg 48.7 kg GEN: debilatated [facility] CP patient, in bed, on Bi-Level PPV support in NAD HEENT: WINL, PERRLA, dry MM PULM: CTAB CV: nml S1 S2, RR, unable to appreciate any m/r/g ABD: distended, hypo-active BS, G tube EXT: + Pulses, WWP X4, contracted (b/l), (-) edema SKIN: warm/dry CBC, BMP 01/15/20 09:17 01/15/20 09:17 Microbiology 01/14/20 01:15 Urine - Urine Clean Catch Urine Culture - Final NO GROWTH OBTAINED 01/14/20 01:15 Urine For Antigen Detection Legionella Antigen - Final 01/14/20 01:15 Urine For Antigen Detection Streptococcus pneumoniae Antigen (M - Final 01/13/20 12:24 Blood - Peripheral Venous Blood Culture - Preliminary NO GROWTH OBTAINED AFTER 24 HOURS, INCUBATION TO CONTINUE FOR 4 DAYS. 01/13/20 12:24 Blood - Peripheral Venous Blood Culture - Preliminary NO GROWTH OBTAINED AFTER 24 HOURS, INCUBATION TO CONTINUE FOR 4 DAYS. RECENT STUDIES TO NOTE: CXR 01/13: A single view of the abdomen reveals generalized abdominal distention suggestive of an ileus. There is no sign of a fecal impaction or gross constipation. A rectal tube is not seen. There is evidence of previous bilateral hip surgeries. There is a scoliosis with convexity to the right. Correlation recommended. ABD US (R UQ) 01/13: Portable Right upper abdomen ultrasound. Limited examination due to the patient's body habitus, performed in ICU The liver is within normal limits in size and echotexture. Gallbladder is adequately distended without intraluminal stones or thickening of its wall. No intrahepatic bile duct dilatation is seen. Questionable visualization of a nondilated common bile duct measuring 4 mm The right kidney measures 8.5 cm sagittal length and appears unremarkable. Nonvisualization of the pancreas Visualized portion of the proximal abdominal aorta and inferior vena cava appear unremarkable. Normal flow in the main portal vein. CTAP /: Large volume stool impaction up to the level of the sigmoid colon with associated gaseous distention of large bowel proximally. This finding is similar to prior study with slightly greater distention at the level of the sigmoid. If further imaging evaluation of bowel is clinically desired, recommend enteric contrast administration on follow-up. No evidence of pneumoperitoneum. Refer to concurrent chest CT report for complete findings above the diaphragm, including discussion of suspected aspiration pneumonia. 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
[2020-01-15] MEDS: cloBAZam 10 MG TABLET GT SCH (21:52)
[2020-01-16] MEDS ORDERED: DEXTROSE 5%-WATER - 50 ML IVPB ONE ×3 (01:54→17:23)
[2020-01-16] MEDS ORDERED: PIPERACILLIN/TAZOBACTAM 3.375 GM VIAL IVPB ONE ×3 (01:54→17:23)
[2020-01-16] MEDS: PIPERACILLIN/TAZOB 3.375 GM 3.375 GM in DEXTROSE 5%-WATER - 50 ML IVPB SCH ×3 (01:58→18:12)
[2020-01-16 06:57] LABS: HEMATOCRIT 39.8 % (35.4-49); HEMOGLOBIN 13.5 GM/dL (11.7-16.9); MCH 33.8 pg (25.7-33.7); MEAN CELL VOLUME 99.4 fl (80-96); MEAN PLT VOLUME 10.4 fl (7.5-11.1); PLATELET COUNT 167 K/MM3 (134-434); RBC 4.01 M/mm3 (4.00-5.60); RDW 15.7 % (11.9-15.9); WHITE BLOOD COUNT 4.4 K/mm3 (4.0-10.0)
[2020-01-16 07:22] LABS: BLOOD UREA NITROGEN 3.7 mg/dL (7-18); CALCIUM 8.7 mg/dL (8.5-10.1); CREATININE 0.6 mg/dL (0.55-1.3); MAGNESIUM 1.8 mg/dL (1.8-2.4); POTASSIUM 3.6 mmol/L (3.5-5.1)
[2020-01-16] MEDS ORDERED: PT OWN MED DRAWER 7, Y5N ONE ×3 (08:06→21:40)
[2020-01-16] MEDS: BUDESONIDE 0.25 MG/2ML INH SUSP VIAL NEB SCH ×2 (08:20→20:42)
[2020-01-16] MEDS: PHENobarbital 20 MG/5 ML UNIT-DOSE CUP GT SCH ×2 (10:52→22:38)
[2020-01-16] MEDS: DOCUSATE NA 100 MG/10 ML UNIT-DOSE CUPS GT SCH ×2 (10:52→22:38)
[2020-01-16] MEDS: ACYCLOVIR 200 MG/5 ML LIQUID GT SCH ×2 (10:53→22:57)
[2020-01-16] MEDS: ENOXAPARIN NA (PORCINE) 40 MG/0.4 ML DISP.SYRIN SQ SCH (10:53)
[2020-01-16] MEDS: BACLOFEN 10 MG TABLET (FP) GT SCH ×2 (10:53→22:35)
[2020-01-16] MEDS: lamoTRIgine 100 MG TABLET PO SCH ×2 (10:53→22:35)
[2020-01-16 10:57] VITALS: BMI 32.6
--- NOTE | 2020-01-16 11:10 | PN ---
Progress Note (short form) - Note Progress Note: remains on bipap comforable Vital Signs Period Temp Pulse Resp BP Sys/Linares Pulse Ox Last 24 Hr 97.2 F-98 F 84-106 18-32 109-127/56-76 95-100 cor-rrr lungs decreased bs at bases abd soft, nt ext no edema CBC, BMP 01/16/20 06:35 01/16/20 06:35 Microbiology 01/13/20 12:24 Blood - Peripheral Venous Blood Culture - Preliminary NO GROWTH OBTAINED AFTER 48 HOURS, INCUBATION TO CONTINUE FOR 3 DAYS. 01/13/20 12:24 Blood - Peripheral Venous Blood Culture - Preliminary NO GROWTH OBTAINED AFTER 48 HOURS, INCUBATION TO CONTINUE FOR 3 DAYS. 01/14/20 01:15 Urine - Urine Clean Catch Urine Culture - Final NO GROWTH OBTAINED 01/14/20 01:15 Urine For Antigen Detection Legionella Antigen - Final 01/14/20 01:15 Urine For Antigen Detection Streptococcus pneumoniae Antigen (M - Final Active Medications Acyclovir (Zovirax Oral Suspension -) 400 mg GT BID [facility] Last Admin: 01/16/20 10:53 Dose: 400 mg Documented by: Albuterol/Ipratropium (Duoneb -) 1 amp NEB QID PRN PRN Reason: WHEEZING Last Admin: 01/15/20 20:45 Dose: 1 amp Documented by: Baclofen (Lioresal -) 5 mg GT BID [facility] Last Admin: 01/16/20 10:53 Dose: 5 mg Documented by: Bisacodyl (Dulcolax Suppository -) 10 mg RC PRN PRN PRN Reason: CONSTIPATION Budesonide (Pulmicort 0.25 Mg Nebulizer -) 1 amp NEB RBID [facility] Last Admin: 01/16/20 08:20 Dose: 1 amp Documented by: Clobazam (Onfi -) 10 mg GT HS [facility] Last Admin: 01/15/20 21:52 Dose: 10 mg Documented by: Diazepam (Diastat Rectal Gel -) 7.5 mg RC PRN PRN PRN Reason: <Seizures> Docusate Sodium (Colace Liquid -) 100 mg GT BID [facility] Last Admin: 01/16/20 10:52 Dose: 100 mg Documented by: Enoxaparin Sodium (Lovenox -) 40 mg SQ DAILY [facility] Last Admin: 01/16/20 10:53 Dose: 40 mg Documented by: Sodium Chloride (Normal Saline -) 1,000 mls @ 100 mls/hr IV ASDIR JORGE Last Admin: 01/15/20 19:00 Dose: 100 mls/hr Documented by: Piperacillin Sod/Tazobactam (Sod 3.375 gm/ Dextrose) 50 mls @ 100 mls/hr IVPB Q8H-IV JORGE; Protocol Last Admin: 01/16/20 10:52 Dose: 100 mls/hr Documented by: Lamotrigine (Lamictal -) 200 mg PO BID JORGE Last Admin: 01/16/20 10:53 Dose: 200 mg Documented by: Phenobarbital (Phenobarbital Liquid -) 45 mg GT BID JORGE Last Admin: 01/16/20 10:52 Dose: 45 mg Documented by: a/p aspiration pneumonia stool impaction abnormal LFTS continue zosyn treat stool impaction Problem List - Problems (1) Hypoxia Code(s): R09.02 - HYPOXEMIA (2) Pneumonia Code(s): J18.9 - PNEUMONIA, UNSPECIFIED ORGANISM (3) Fecal impaction Code(s): K56.41 - FECAL IMPACTION (4) Abnormal LFTs Code(s): R94.5 - ABNORMAL RESULTS OF LIVER FUNCTION STUDIES (5) Seizure Code(s): R56.9 - UNSPECIFIED CONVULSIONS (6) History of encephalitis Code(s): Z86.61 - PERSONAL HISTORY OF INFECTIONS OF THE CENTRAL NERVOUS SYSTEM
--- NOTE | 2020-01-16 12:35 | PN ---
Teaching Attending Note Name of Resident: René Jimenez ATTENDING PHYSICIAN STATEMENT I saw and evaluated the patient. I reviewed the resident's note and discussed the case with the resident. I agree with the resident's findings and plan as documented. SUBJECTIVE: Patient seen & examined in the ICU. NAD on NIPPV support. No pressors. Intake & Output 01/13/20 01/14/20 01/15/20 01/16/20 23:59 23:59 23:59 23:59 Intake Total 2600 1900 3350 1300 Output Total 1400 3300 400 Balance 2600 500 50 900 Weight 120 lb 107 lb 5.842 oz 107 lb Last Vital Signs Temp Pulse Resp BP Pulse Ox 97.2 F L 74 22 H 118/69 96 01/16/20 06:00 01/16/20 11:32 01/16/20 06:00 01/16/20 06:00 01/16/20 11:32 Active Medications Acyclovir (Zovirax Oral Suspension -) 400 mg GT BID [facility] Last Admin: 01/16/20 10:53 Dose: 400 mg Documented by: Albuterol/Ipratropium (Duoneb -) 1 amp NEB QID PRN PRN Reason: WHEEZING Last Admin: 01/15/20 20:45 Dose: 1 amp Documented by: Baclofen (Lioresal -) 5 mg GT BID [facility] Last Admin: 01/16/20 10:53 Dose: 5 mg Documented by: Bisacodyl (Dulcolax Suppository -) 10 mg RC PRN PRN PRN Reason: CONSTIPATION Budesonide (Pulmicort 0.25 Mg Nebulizer -) 1 amp NEB RBID [facility] Last Admin: 01/16/20 08:20 Dose: 1 amp Documented by: Clobazam (Onfi -) 10 mg GT HS [facility] Last Admin: 01/15/20 21:52 Dose: 10 mg Documented by: Diazepam (Diastat Rectal Gel -) 7.5 mg RC PRN PRN PRN Reason: <Seizures> Docusate Sodium (Colace Liquid -) 100 mg GT BID [facility] Last Admin: 01/16/20 10:52 Dose: 100 mg Documented by: Enoxaparin Sodium (Lovenox -) 40 mg SQ DAILY [facility] Last Admin: 01/16/20 10:53 Dose: 40 mg Documented by: Sodium Chloride (Normal Saline -) 1,000 mls @ 100 mls/hr IV ASDIR [facility] Last Admin: 01/15/20 19:00 Dose: 100 mls/hr Documented by: Piperacillin Sod/Tazobactam (Sod 3.375 gm/ Dextrose) 50 mls @ 100 mls/hr IVPB Q8H-IV JORGE; Protocol Last Admin: 01/16/20 10:52 Dose: 100 mls/hr Documented by: Lamotrigine (Lamictal -) 200 mg PO BID [facility] Last Admin: 01/16/20 10:53 Dose: 200 mg Documented by: Phenobarbital (Phenobarbital Liquid -) 45 mg GT BID [facility] Last Admin: 01/16/20 10:52 Dose: 45 mg Documented by: GEN: Awake on NIPPV support HEENT: dry MM PULM: scattered rhonchi CV: S1 S2, RR ABD: distended, hypo-active BS, G tube EXT: + Pulses, WWP X4, contracted (b/l), (-) edema SKIN: warm/dry Laboratory Results - last 24 hr 01/16/20 01/16/20 06:35 06:35 WBC 4.4 RBC 4.01 Hgb 13.5 Hct 39.8 MCV 99.4 H MCH 33.8 H MCHC 34.0 RDW 15.7 Plt Count 167 MPV 10.4 Sodium 145 Potassium 3.6 Chloride 110 H Carbon Dioxide 29 Anion Gap 6 L BUN 3.7 L Creatinine 0.6 Est GFR (CKD-EPI)AfAm 164.25 Est GFR (CKD-EPI)NonAf 141.72 Random Glucose 72 L Calcium 8.7 Phosphorus 4.0 Magnesium 1.8 RECENT STUDIES TO NOTE: CXR 01/13: A single view of the abdomen reveals generalized abdominal distention suggestive of an ileus. There is no sign of a fecal impaction or gross constipation. A rectal tube is not seen. There is evidence of previous bilateral hip surgeries. There is a scoliosis with convexity to the right. Correlation recommended. ABD US (R UQ) 01/13: Portable Right upper abdomen ultrasound. Limited examination due to the patient's body habitus, performed in ICU The liver is within normal limits in size and echotexture. Gallbladder is adequately distended without intraluminal stones or thickening of its wall. No intrahepatic bile duct dilatation is seen. Questionable visualization of a nondilated common bile duct measuring 4 mm The right kidney measures 8.5 cm sagittal length and appears unremarkable. Nonvisualization of the pancreas Visualized portion of the proximal abdominal aorta and inferior vena cava appear unremarkable. Normal flow in the main portal vein. CTAP /: Large volume stool impaction up to the level of the sigmoid colon with associated gaseous distention of large bowel proximally. This finding is similar to prior study with slightly greater distention at the level of the sigmoid. If further imaging evaluation of bowel is clinically desired, recommend enteric contrast administration on follow-up. No evidence of pneumoperitoneum. Refer to concurrent chest CT report for complete findings above the diaphragm, including discussion of suspected aspiration pneumonia. ASSESS: -GROSS ILEUS/OLGIVIE'S SYNDROME -RECURRENT ASP PNA -DYSPHAGIA -CP -SZ -CHRONIC NIPPV DEPENDANT -GERD -HERPES ENCEPHALITIS PLAN: -NPO -Aggressive BR -Titrate FiO2 for SaO2 >92% : Trial of VM O2 -BIPAP PRN (patient is apparently BIPAP dependent at [place]) -Continue ABX per ID -IVFs -Follow up on cultures -Continue home medications for seizure/encephalitis -DVT ppx -GI ppx (GERD) -Aspiration precautions -Floor Dr Price
--- NOTE | 2020-01-16 13:32 | PN ---
Progress Note (short form) - Note Progress Note: 24 yo male pmh of cerebral palsy, epilepsy, herpes encephalitis, GERD, aspiration pna dysphagia s/p g tube prednted to the hospital from [facility] with hypoxia and respiratory distress secondary to aspiration pna. Pt MAP dropped below 50s and needed bipap for low SpO2 so pt was transferred to ICU. Pt now saturating at 94% on venti mask and MAP of 75. Pt is stable for med surge. PE: GENERAL: Awake, alert, and nonverbal baselijne HEAD: No signs of trauma, normocephalic, atraumatic EYES: PERRL, EOMI, sclera anicteric, conjunctiva clear ENT: Auricles normal inspection nares patent LUNGS:Course rhonchi bilaterally. On venti Mask (80%) saturating at 94% HEART: Regular rate and rhythm, normal S1 and S2, no murmurs, rubs or gallops, peripheral pulses normal and equal bilaterally. ABDOMEN: Soft, nontender EXTREMITIES :Bilateral upper and lower ext contracted SKIN: no rashes or lesions noted
--- NOTE | 2020-01-16 14:19 | PN ---
Progress Note (short form) - Note Progress Note: 24 Y Male with a PMH of Cerebral Palsy, epilespsy, herpes encephalitis, GERD, Aspiration pneumonia, Dysphagia s/p G-tube, presents to ED from [facility] facility with hypoxia and respiratory distress found to be saturating in the high 70's low 80's patient was found to have aspiration PNA with moderate stool impaction- patient started on zosyn then became hypotensive and hypoxic requiring transfer to ICU; currently: patient on venti mask saturating 95% with MAPS in the 70;s gen: awake on ventimask LUNGS:coarse rhonchi appreciated b/l CV: RRR s1 s2 no mrg abd: distended; hypoactive BS tympanic upon percussion extremities: contracted; warm; well-perfused no edema patient is now on venti mask with stable vital signs and is able to be downgraded to med-surg plan: # sepis 2/ aspiration PNA -c/w zosyn day day 3 -duonebs PRN --can use BIPAP PRN as he uses it at [facility] -monitor o2 sat; maintain o2 sat >92% -monitor hemodynamics -IVF -maintain MAP >65 -aspiration precautions #Ileus -repeat KUB in AM -bowel regimen -will assess repeat KUB to see if patient can start feeds #Transaminitis slight increase from yesterday will continue to monitor US revealed no gallstones; no intrahepatic duct dilation #Seizures c/w home medications Problem List - Problems (1) Bowel obstruction Code(s): K56.609 - UNSP INTESTNL OBST, UNSP TO PARTIAL VERSUS COMPLETE OBST (2) Fecal impaction Code(s): K56.41 - FECAL IMPACTION (3) Pneumonia Code(s): J18.9 - PNEUMONIA, UNSPECIFIED ORGANISM (4) Sepsis Code(s): A41.9 - SEPSIS, UNSPECIFIED ORGANISM Qualifiers: Sepsis type: sepsis due to unspecified organism Sepsis acute organ dysfunction status: unspecified Qualified Code(s): A41.9 - Sepsis, unspecified organism (5) Acute hypoxemic respiratory failure Code(s): J96.01 - ACUTE RESPIRATORY FAILURE WITH HYPOXIA
[2020-01-16] MEDS: ALBUTEROL SO4 2.5/IPRATROPIUM 0.5 INH SOL 3 ML VIAL.NEB. NEB PRN (20:42)
[2020-01-16] MEDS ORDERED: guaiFENesin 200 MG/10 ML 10 ML UNIT-DOSE CUPS PO ONE (22:21)
[2020-01-16] MEDS: cloBAZam 10 MG TABLET GT SCH (22:45)
[2020-01-17] MEDS ORDERED: DEXTROSE 5%-WATER - 50 ML IVPB ONE ×3 (01:07→16:57)
[2020-01-17] MEDS ORDERED: PIPERACILLIN/TAZOBACTAM 3.375 GM VIAL IVPB ONE ×3 (01:07→16:57)
[2020-01-17] MEDS: PIPERACILLIN/TAZOB 3.375 GM 3.375 GM in DEXTROSE 5%-WATER - 50 ML IVPB SCH ×3 (01:14→17:13)
[2020-01-17] MEDS ORDERED: LORazepam 2 MG/ML SDV VIAL IVPUSH PRN (02:57)
[2020-01-17] MEDS: SODIUM CHLORIDE 1,000 ML IV SCH ×2 (03:50→06:15)
--- NOTE | 2020-01-17 04:30 | RAPID ---
Physical Examination Vital Signs: Vital Signs Temperature 99.8 F H 01/17/20 03:00 Pulse Rate 65 01/17/20 04:15 Respiratory Rate 27 H 01/17/20 04:15 Blood Pressure 87/36 L 01/17/20 04:15 O2 Sat by Pulse Oximetry (%) 97 01/17/20 04:15 Cardiovascular: Yes: WNL, Tachycardia Respiratory: Yes: On BiPap, Poor Air Entry (Can't hear breath sounds on left side) Gastrointestinal: Yes: Soft Musculoskeletal: Yes: Other (Club feet) Labs: CBC, BMP 01/16/20 06:35 01/16/20 06:35 Rapid Response - Rapid Response Assessment: Rapid response called at 2:35 because patient had oxygen saturation in 80s. Patient was placed on BiPap. Patient was not on BiPap previously due to oral secretions and waiting for the Mucinex to help reduce the amount of fluid prior to BiPap placement to avoid the risk of an aspiration pneumonia. After BiPap placement, vital signs were 93% on Bipap, heart rate 101bpm, 112/20 blood pressure (low diastolic of 20 possibly due to automatic blood pressure machine not reading blood pressure well), 15 respiratory rate. CXR was ordered.
[2020-01-17] MEDS ORDERED: SODIUM CHLORIDE 0.9% 500 ML INFUS.BAG IV ONE (04:34)
[2020-01-17] MEDS: BUDESONIDE 0.25 MG/2ML INH SUSP VIAL NEB SCH ×2 (07:30→21:18)
--- NOTE | 2020-01-17 07:51 | PN ---
Progress Note, Physician History of Present Illness: pulmonary lethargic,mildly tachypneic on bipap sat 98% - Current Medication List Current Medications: Active Medications Acyclovir (Zovirax Oral Suspension -) 400 mg GT BID [facility] Last Admin: 01/16/20 22:57 Dose: 400 mg Documented by: Albuterol/Ipratropium (Duoneb -) 1 amp NEB QID PRN PRN Reason: WHEEZING Last Admin: 01/16/20 20:42 Dose: 1 amp Documented by: Baclofen (Lioresal -) 5 mg GT BID [facility] Last Admin: 01/16/20 22:35 Dose: 5 mg Documented by: Bisacodyl (Dulcolax Suppository -) 10 mg RC PRN PRN PRN Reason: CONSTIPATION Budesonide (Pulmicort 0.25 Mg Nebulizer -) 1 amp NEB RBID [facility] Last Admin: 01/16/20 20:42 Dose: Not Given Documented by: Clobazam (Onfi -) 10 mg GT HS [facility] Last Admin: 01/16/20 22:45 Dose: 10 mg Documented by: Docusate Sodium (Colace Liquid -) 100 mg GT BID [facility] Last Admin: 01/16/20 22:38 Dose: 100 mg Documented by: Enoxaparin Sodium (Lovenox -) 40 mg SQ DAILY [facility] Sodium Chloride (Normal Saline -) 1,000 mls @ 100 mls/hr IV ASDIR [facility] Last Admin: 01/17/20 06:15 Dose: 100 mls/hr Documented by: Piperacillin Sod/Tazobactam (Sod 3.375 gm/ Dextrose) 50 mls @ 100 mls/hr IVPB Q8H-IV JORGE; Protocol Last Admin: 01/17/20 01:14 Dose: 100 mls/hr Documented by: Lamotrigine (Lamictal -) 200 mg PO BID [facility] Last Admin: 01/16/20 22:35 Dose: 200 mg Documented by: Phenobarbital (Phenobarbital Liquid -) 45 mg GT BID [facility] Last Admin: 01/16/20 22:38 Dose: 45 mg Documented by: - Objective Vital Signs: Vital Signs Temperature 98.3 F 01/17/20 06:00 Pulse Rate 99 H 01/17/20 06:00 Respiratory Rate 26 H 01/17/20 06:00 Blood Pressure 97/41 L 01/17/20 06:00 O2 Sat by Pulse Oximetry (%) 96 01/17/20 06:00 Constitutional: Yes: Thin, Other (mildly tachypneic) Eyes: Yes: WNL, Other Neck: Yes: WNL Cardiovascular: Yes: Regular Rate and Rhythm, S1, S2 Respiratory: Yes: On BiPap, Rhonchi (scattered rhonch) Gastrointestinal: Yes: Normal Bowel Sounds Extremities: Yes: Shortened, Other (contracted) Labs: CBC, BMP Problem List - Problems (1) Abnormal LFTs Code(s): R94.5 - ABNORMAL RESULTS OF LIVER FUNCTION STUDIES (2) History of encephalitis Code(s): Z86.61 - PERSONAL HISTORY OF INFECTIONS OF THE CENTRAL NERVOUS SYSTEM (3) Hypoxia Code(s): R09.02 - HYPOXEMIA (4) Pneumonia Code(s): J18.9 - PNEUMONIA, UNSPECIFIED ORGANISM (5) Sepsis Code(s): A41.9 - SEPSIS, UNSPECIFIED ORGANISM Qualifiers: Sepsis type: sepsis due to unspecified organism Sepsis acute organ dysfunction status: unspecified Qualified Code(s): A41.9 - Sepsis, unspecified organism (6) Acute hypoxemic respiratory failure Code(s): J96.01 - ACUTE RESPIRATORY FAILURE WITH HYPOXIA (7) Epilepsy Code(s): G40.909 - EPILEPSY, UNSP, NOT INTRACTABLE, WITHOUT STATUS EPILEPTICUS (8) Hypotension Code(s): I95.9 - HYPOTENSION, UNSPECIFIED (9) Profound mental retardation Code(s): F73 - PROFOUND INTELLECTUAL DISABILITIES (10) Aspiration pneumonia Code(s): J69.0 - PNEUMONITIS DUE TO INHALATION OF FOOD AND VOMIT Assessment/Plan ASSESS: -GROSS ILEUS/OLGIVIE'S SYNDROME -RECURRENT ASP PNA -DYSPHAGIA -CP -SZ -CHRONIC NIPPV DEPENDANT -GERD -HERPES ENCEPHALITIS PLAN: -NPO -Aggressive BR -Titrate FiO2 for SaO2 >92% -BIPAP (patient is apparently BIPAP dependent at [place]) -Continue ABX per ID -IVFs -Follow up on cultures -Continue home medications for seizure/encephalitis -DVT ppx -GI ppx (GERD) -Aspiration precautions DR VILLALTA
[2020-01-17 08:16] LABS: HEMATOCRIT 33.8 % (35.4-49); HEMOGLOBIN 11.5 GM/dL (11.7-16.9); MCHC 34.1 g/dl (32.0-35.9); MEAN CELL VOLUME 99.6 fl (80-96); MEAN PLT VOLUME 10.3 fl (7.5-11.1); PLATELET COUNT 159 K/MM3 (134-434); RBC 3.39 M/mm3 (4.00-5.60); RDW 15.7 % (11.9-15.9); WHITE BLOOD COUNT 7.9 K/mm3 (4.0-10.0)
[2020-01-17 08:34] LABS: ALBUMIN 2.3 g/dl (3.4-5.0); BILIRUBIN,TOTAL 0.8 mg/dL (0.2-1); BLOOD UREA NITROGEN 3.8 mg/dL (7-18); CREATININE 0.4 mg/dL (0.55-1.3); MAGNESIUM 1.5 mg/dL (1.8-2.4); PHOSPHOROUS 3.8 mg/dL (2.5-4.9); TOT PROT 5.5 g/dl (6.4-8.2)
[2020-01-17 08:59] LABS: CALCIUM 6.8 mg/dL (8.5-10.1)
[2020-01-17 09:00] LABS: POTASSIUM 2.7 mmol/L (3.5-5.1)
[2020-01-17] MEDS ORDERED: MAGNESIUM 1GM/D5W 100ML - 100 ML IVPB IVPB ONE (09:30)
--- NOTE | 2020-01-17 10:10 | PN ---
Physical Exam: SUBJECTIVE: Patient seen and examined. Rapid response overnight due to desaturation to 80%. Pt placed on BiPAP and repeat SpO2 was 93%. CXR placed. Upon my evaluation, pt remained on BiPAP IPAP/EPAP 04/15. OBJECTIVE: Vital Signs Period Temp Pulse Resp BP Sys/Linares Pulse Ox Last 24 Hr 97.4 F-99.8 F 59-115 22-45 87-118/35-74 92-100 GENERAL: Somnolent, but arousable. No acute distress. HEENT: Microcephaly. Atraumatic. PERRL, dry mucous membranes. LUNGS: scattered rhonchi b/l HEART: RRR, normal S1 and S2 without murmur ABDOMEN: Distended, nontender to palpation, G-tube in place. EXTREMITIES: warm, well-perfused, contracted. No edema SKIN: Warm, dry Laboratory Last Values WBC 7.9 K/mm3 (4.0-10.0) 01/17/20 07:05 RBC 3.39 M/mm3 (4.00-5.60) L 01/17/20 07:05 Hgb 11.5 GM/dL (11.7-16.9) L 01/17/20 07:05 Hct 33.8 % (35.4-49) L D 01/17/20 07:05 MCV 99.6 fl (80-96) H 01/17/20 07:05 MCH 34.0 pg (25.7-33.7) H 01/17/20 07:05 MCHC 34.1 g/dl (32.0-35.9) 01/17/20 07:05 RDW 15.7 % (11.9-15.9) 01/17/20 07:05 Plt Count 159 K/MM3 (134-434) 01/17/20 07:05 MPV 10.3 fl (7.5-11.1) 01/17/20 07:05 Absolute Neuts (auto) 3.8 K/mm3 (1.5-8.0) 01/15/20 09:17 Neutrophils % 67.1 % (42.8-82.8) D 01/15/20 09:17 Neutrophils % (Manual) 75.0 % (42.8-82.8) D 01/14/20 08:40 Band Neutrophils % 17.0 % 01/14/20 08:40 Lymphocytes % 16.7 % (8-40) D 01/15/20 09:17 Lymphocytes % (Manual) 3.0 % (8-40) L D 01/14/20 08:40 Monocytes % 10.7 % (3.8-10.2) H D 01/15/20 09:17 Monocytes % (Manual) 2 % (3.8-10.2) L 01/14/20 08:40 Eosinophils % 5.2 % (0-4.5) H D 01/15/20 09:17 Eosinophils % (Manual) 1.0 % (0-4.5) D 01/14/20 08:40 Basophils % 0.3 % (0-2.0) 01/15/20 09:17 Basophils % (Manual) 0.0 % (0-2.0) 01/14/20 08:40 Myelocytes % (Man) 0 % (0-2) 01/14/20 08:40 Promyelocytes % (Man) 0 % (0-2) 01/14/20 08:40 Blast Cells % (Manual) 0 % (0-0) 01/14/20 08:40 Nucleated RBC % 0 % (0-0) 01/15/20 09:17 Metamyelocytes 1 % (0-2) D 01/14/20 08:40 Hypochromia 0 01/14/20 08:40 Toxic Granulation 2+ 01/14/20 08:40 Platelet Estimate Normal 01/14/20 08:40 Platelet Comment Present 01/14/20 08:40 Polychromasia 0 01/14/20 08:40 Poikilocytosis 1+ 01/14/20 08:40 Anisocytosis 1+ 01/14/20 08:40 Microcytosis 0 01/14/20 08:40 Macrocytosis 1+ 01/14/20 08:40 Spherocytes 2+ 01/14/20 08:40 Tear Drop Cells 1+ 01/14/20 08:40 PT with INR 12.90 SEC (9.7-13.0) 01/13/20 12:29 INR 1.09 (0.83-1.09) 01/13/20 12:29 PTT (Actin FS) 39.5 SECONDS (25.2-36.5) H 01/13/20 12:29 VBG pH 7.449 (7.310-7.410) H 01/13/20 12:24 POC VBG pCO2 36.7 mmHg (38-52) L 01/13/20 12:24 POC VBG pO2 99.6 mmHg (28-48) H 01/13/20 12:24 VBG HCO3 24.9 mmol/L (23-29) 01/13/20 12:24 VBG O2 Sat (Renzo) 97.8 % (70-80) H 01/13/20 12:24 VBG Base Excess 1.2 mmol/L (-2-2) 01/13/20 12:24 Sodium 146 mmol/L (136-145) H 01/17/20 07:05 Potassium 2.7 mmol/L (3.5-5.1) L* 01/17/20 07:05 Chloride 114 mmol/L (98-107) H 01/17/20 07:05 Carbon Dioxide 22 mmol/L (21-32) 01/17/20 07:05 Anion Gap 9 MMOL/L (8-16) 01/17/20 07:05 BUN 3.8 mg/dL (7-18) L 01/17/20 07:05 Creatinine 0.4 mg/dL (0.55-1.3) L 01/17/20 07:05 Est GFR (CKD-EPI)AfAm 194.04 01/17/20 07:05 Est GFR (CKD-EPI)NonAf 167.42 01/17/20 07:05 Random Glucose 62 mg/dL (74-106) L 01/17/20 07:05 Lactic Acid 0.9 mmol/L (0.4-2.0) 01/13/20 12:24 Calcium 6.8 mg/dL (8.5-10.1) L* 01/17/20 07:05 Phosphorus 3.8 mg/dL (2.5-4.9) 01/17/20 07:05 Magnesium 1.5 mg/dL (1.8-2.4) L 01/17/20 07:05 Total Bilirubin 0.8 mg/dL (0.2-1) 01/17/20 07:05 AST 31 U/L (15-37) 01/17/20 07:05 ALT 53 U/L (13-61) 01/17/20 07:05 Alkaline Phosphatase 253 U/L (45-117) H 01/17/20 07:05 Troponin I < 0.02 ng/ml (0.00-0.05) 01/13/20 12:29 Total Protein 5.5 g/dl (6.4-8.2) L 01/17/20 07:05 Albumin 2.3 g/dl (3.4-5.0) L 01/17/20 07:05 Urine Color Yellow 01/14/20 01:15 Urine Appearance Clear 01/14/20 01:15 Urine pH 7.0 (5.0-8.0) 01/14/20 01:15 Ur Specific [place] 1.024 (1.010-1.035) 01/14/20 01:15 Urine Protein Negative (NEGATIVE) 01/14/20 01:15 Urine Glucose (UA) Negative (NEGATIVE) 01/14/20 01:15 Urine Ketones Negative (NEGATIVE) 01/14/20 01:15 Urine Blood Negative (NEGATIVE) 01/14/20 01:15 Urine Nitrite Negative (NEGATIVE) 01/14/20 01:15 Urine Bilirubin Negative (NEGATIVE) 01/14/20 01:15 Urine Urobilinogen 0.2 mg/dL (0.2-1.0) 01/14/20 01:15 Ur Leukocyte Esterase Trace (NEGATIVE) 01/14/20 01:15 Urine WBC (Auto) 13 /uL (0-25.8) 01/14/20 01:15 Urine RBC (Auto) 3 /uL (0-23.9) 01/14/20 01:15 Urine Casts (Auto) 2 /uL (0-3.1) 01/14/20 01:15 U Epithel Cells (Auto) 25 /uL (0-25.1) 01/14/20 01:15 Urine Bacteria (Auto) 14 /uL (0-1359) 01/14/20 01:15 Phenobarbital 19 ug/mL (15-40) 01/13/20 12:24 COVID-19 (JOSEPHINE) Not detected (Not Detected) 01/13/20 12:42 Active Medications Acyclovir (Zovirax Oral Suspension -) 400 mg GT BID JORGE Last Admin: 01/17/20 11:41 Dose: 400 mg Documented by: Albuterol/Ipratropium (Duoneb -) 1 amp NEB QID PRN PRN Reason: WHEEZING Last Admin: 01/16/20 20:42 Dose: 1 amp Documented by: Baclofen (Lioresal -) 5 mg GT BID [facility] Last Admin: 01/17/20 11:34 Dose: 5 mg Documented by: Bisacodyl (Dulcolax Suppository -) 10 mg RC PRN PRN PRN Reason: CONSTIPATION Budesonide (Pulmicort 0.25 Mg Nebulizer -) 1 amp NEB RBID [facility] Last Admin: 01/17/20 07:30 Dose: Not Given Documented by: Clobazam (Onfi -) 10 mg GT HS [facility] Last Admin: 01/16/20 22:45 Dose: 10 mg Documented by: Docusate Sodium (Colace Liquid -) 100 mg GT BID [facility] Last Admin: 01/17/20 11:34 Dose: 100 mg Documented by: Enoxaparin Sodium (Lovenox -) 40 mg SQ DAILY [facility] Last Admin: 01/17/20 11:34 Dose: 40 mg Documented by: Piperacillin Sod/Tazobactam (Sod 3.375 gm/ Dextrose) 50 mls @ 100 mls/hr IVPB Q8H-IV JORGE; Protocol Last Admin: 01/17/20 11:29 Dose: 100 mls/hr Documented by: Lamotrigine (Lamictal -) 200 mg PO BID [facility] Last Admin: 01/17/20 11:35 Dose: 200 mg Documented by: Phenobarbital (Phenobarbital Liquid -) 45 mg GT BID [facility] Last Admin: 01/17/20 11:33 Dose: 45 mg Documented by: Potassium Chloride (Potassium Chloride Oral Liquid) 20 meq GT BID [facility] Stop: 01/18/20 22:01 CXR; 01/12 Single view of the chest has been submitted. The prior study of 11/28/2019 at 1518 hours there is increased abdominal distention and possible pneumoperitoneum. The left base is quite dense. The patient is rotated to the left. There is a weak inspiration with prominent mediastinal and congestive changes CT A/P; 01/12 Large volume stool impaction up to the level of the sigmoid colon with associated gaseous distention of large bowel proximally. This finding is similar to prior study with slightly greater distention at the level of the sigmoid. If further imaging evaluation of bowel is clinically desired, recommend enteric contrast administration on follow-up. No evidence of pneumoperitoneum. Refer to concurrent chest CT report for complete findings above the diaphragm, including discussion of suspected aspiration pneumonia. CT chest; 01/12 Low attenuation material identified within the bilateral lower lobe bronchi and left upper lobe bronchi and associated large consolidations affecting the bilateral lower and left upper hemithoraces are highly suspicious for aspiration pneumonia. Cardiomegaly with prominent pulmonary vascularity may represent sequela of underlying congestive heart disease. Recommend clinical correlation. Refer to concurrent CT abdomen and pelvis report for complete findings below the diaphragm. CXR; 01/13 Single view the chest reveals a weak inspiratory effort with abdominal distention suggestive of either an obstruction or ileus, chin artifact obscuring discrete detail of the left hemithorax, rotation to the left and some infiltrative changes at the right base. Correlation recommended. Please see CT report from 01/13/2020 at 1432 hours. US limited; 01/13 Limited exam. The liver is within normal limits in size and echotexture. Gallbladder is adequately distended without intraluminal stones or thickening of its wall. No intrahepatic bile duct dilatation is seen. Questionable visualization of a nondilated common bile duct measuring 4 mm The right kidney measures 8.5 cm sagittal length and appears unremarkable. Nonvisualization of the pancreas Visualized portion of the proximal abdominal aorta and inferior vena cava appear unremarkable. Normal flow in the main portal vein. KUB; 01/13 A single view of the abdomen reveals generalized abdominal distention suggestive of an ileus. There is no sign of a fecal impaction or gross constipation. A rectal tube is not seen. There is evidence of previous bilateral hip surgeries. There is a scoliosis with convexity to the right. Correlation recommended. CXR; 01/16 A single view of the chest is been submitted. Again noted is abdominal distention, retrocardiac atelectasis or infiltrate with large heart, weak inspiration and congestive changes with scoliosis and possible old rib trauma. Correlation recommended. KUB; 01/16 Single view of the abdomen again reveals distended bowel mainly involving colon rather than small bowel. The cecum or sigmoid appears distended over the lower LS spine and upper sacrum. There is hand artifact in the right upper quadrant and a G-tube with some questionable material in the stomach. Free air or pneumatosis is not seen. There is no air or stool seen in the rectum. There is a dense left base. There is evidence of bilateral hip surgeries. Correlation and follow-up recommended. For more complete evaluation, CT may be of help. ASSESSMENT/PLAN: 24 year old M from [facility], with PMH cerebral palsy, herpes encephalitis, GERD, aspiration PNA, dysphagia (s/p G tube) presented to ED with hypoxia and respiratory distress. Pt was downgraded from ICU due to hypoxia and hypotension. Was placed on BiPAP with good response. Pt is currently admitted for aspiration PNA and ileus. Sepsis secondary to aspiration PNA -c/w zosyn (started 01/13), today is day 4. -ID consulted. Recommended aggressive BR, keep FiO2 >92%, c/w BiPAP, c/w abx - Pulmonology consulted. Pending recommendations. -CT chest, CXR as above. -Cultures: -Sputum culture pending. Ucx negative. Urine legionella/strep pneumo negative. Bcx negative thus far. -supplemental O2, maintain SaO2 >90% -aspiration precautions -COVID-19 PCR negative -Maintain MAP >65 - c/w duoneb and budesonide Hypokalemia, hypomagnesemia - Repleted with liquid KCl and magnesium sulfate. - f/u electrolytes and replete as necessary Ileus -CT abd as above. -c/w bowel regimen -Repeat KUB as above - Hb dropped 13.5-->11.5. Will continue to monitor. f/u stool for occult blood. Seizures -continue home dose lamotrigine, baclofen, clobazam, phenobarbital Hx of herpes encephalitis -c/w acyclovir 400 BID Transaminitis, improved -continue to monitor LFT -US as above. No gallstones, no intrahepatic duct dilation. FEN -No standing fluids -monitor and replete lytes -NPO Ppx -DVT: Lovenox Dispo: continue to monitor on telemetry Visit type - Emergency Visit Emergency Visit: Yes ED Registration Date: 01/13/20 Care time: The patient presented to the Emergency Department on the above date and was hospitalized for further evaluation of their emergent condition. - New Patient This patient is new to me today: No - Critical Care Critical Care patient: No ATTENDING PHYSICIAN STATEMENT I saw and evaluated the patient. I reviewed the resident's note and discussed the case with the resident. I agree with the resident's findings and plan as documented. SUBJECTIVE: OBJECTIVE: ASSESSMENT AND PLAN:
[2020-01-17] MEDS: PHENobarbital 20 MG/5 ML UNIT-DOSE CUP GT SCH ×2 (11:33→22:32)
[2020-01-17] MEDS: ENOXAPARIN NA (PORCINE) 40 MG/0.4 ML DISP.SYRIN SQ SCH (11:34)
[2020-01-17] MEDS ORDERED: MAGNESIUM SULF 50% (8.12 MEQ/2 ML-1 GM VIAL) IVPB ONE (11:34)
[2020-01-17] MEDS: BACLOFEN 10 MG TABLET (FP) GT SCH ×2 (11:34→22:33)
[2020-01-17] MEDS: DOCUSATE NA 100 MG/10 ML UNIT-DOSE CUPS GT SCH ×2 (11:34→22:35)
[2020-01-17] MEDS: lamoTRIgine 100 MG TABLET PO SCH ×2 (11:35→22:34)
[2020-01-17] MEDS: ACYCLOVIR 200 MG/5 ML LIQUID GT SCH ×2 (11:41→22:35)
[2020-01-17] MEDS: KCL 10 MEQ IVPB 10 MEQ/100 ML INFUS.BAG IVPB SCH ×2 (12:13→12:14)
[2020-01-17] MEDS: POTASSIUM CHLORIDE ORAL LIQUID 20 MEQ/15 ML PO SCH ×2 (12:47→16:41)
--- NOTE | 2020-01-17 18:45 | PN ---
Teaching Attending Note Name of Resident: Evie Wolfe ATTENDING PHYSICIAN STATEMENT I saw and evaluated the patient. I reviewed the resident's note and discussed the case with the resident. I agree with the resident's findings and plan as documented. SUBJECTIVE: Patient is on Bipap continue OBJECTIVE: Vital Signs Temperature 98.8 F 01/17/20 18:00 Pulse Rate 102 H 01/17/20 18:00 Respiratory Rate 22 H 01/17/20 18:00 Blood Pressure 115/54 L 01/17/20 18:00 O2 Sat by Pulse Oximetry (%) 99 01/17/20 18:00 PE; per resident's note CBCD WBC 7.9 K/mm3 (4.0-10.0) 01/17/20 07:05 RBC 3.39 M/mm3 (4.00-5.60) L 01/17/20 07:05 Hgb 11.5 GM/dL (11.7-16.9) L 01/17/20 07:05 Hct 33.8 % (35.4-49) L D 01/17/20 07:05 MCV 99.6 fl (80-96) H 01/17/20 07:05 MCHC 34.1 g/dl (32.0-35.9) 01/17/20 07:05 RDW 15.7 % (11.9-15.9) 01/17/20 07:05 Plt Count 159 K/MM3 (134-434) 01/17/20 07:05 MPV 10.3 fl (7.5-11.1) 01/17/20 07:05 CMP Sodium 146 mmol/L (136-145) H 01/17/20 07:05 Potassium 2.7 mmol/L (3.5-5.1) L* 01/17/20 07:05 Chloride 114 mmol/L (98-107) H 01/17/20 07:05 Carbon Dioxide 22 mmol/L (21-32) 01/17/20 07:05 Anion Gap 9 MMOL/L (8-16) 01/17/20 07:05 BUN 3.8 mg/dL (7-18) L 01/17/20 07:05 Creatinine 0.4 mg/dL (0.55-1.3) L 01/17/20 07:05 Random Glucose 62 mg/dL (74-106) L 01/17/20 07:05 Calcium 6.8 mg/dL (8.5-10.1) L* 01/17/20 07:05 Total Bilirubin 0.8 mg/dL (0.2-1) 01/17/20 07:05 AST 31 U/L (15-37) 01/17/20 07:05 ALT 53 U/L (13-61) 01/17/20 07:05 Alkaline Phosphatase 253 U/L (45-117) H 01/17/20 07:05 Total Protein 5.5 g/dl (6.4-8.2) L 01/17/20 07:05 Albumin 2.3 g/dl (3.4-5.0) L 01/17/20 07:05 CARDIAC ENZYMES Troponin I < 0.02 ng/ml (0.00-0.05) 01/13/20 12:29 Current Medications Generic Name Dose Route Start Last Admin Trade Name Freq PRN Reason Stop Dose Admin Acyclovir 400 mg 01/16/20 22:00 01/17/20 11:41 Zovirax Oral Suspension - GT 400 mg BID JORGE Administration Albuterol/Ipratropium 1 amp 01/16/20 18:33 01/16/20 20:42 Duoneb - NEB 1 amp QID PRN Administration WHEEZING Baclofen 5 mg 01/16/20 22:00 01/17/20 11:34 Lioresal - GT 5 mg BID JORGE Administration Bisacodyl 10 mg 01/16/20 18:33 Dulcolax Suppository - RC PRN PRN CONSTIPATION Budesonide 1 amp 01/16/20 20:00 01/17/20 07:30 Pulmicort 0.25 Mg Nebulizer - NEB Not Given RBID JORGE Clobazam 10 mg 01/16/20 22:00 01/16/20 22:45 Onfi - GT 10 mg HS JORGE Administration Docusate Sodium 100 mg 01/16/20 22:00 01/17/20 11:34 Colace Liquid - GT 100 mg BID JORGE Administration Enoxaparin Sodium 40 mg 01/17/20 10:00 01/17/20 11:34 Lovenox - SQ 40 mg DAILY JORGE Administration Piperacillin Sod/Tazobactam 50 mls @ 100 mls/hr 01/17/20 02:00 01/17/20 17:13 Sod 3.375 gm/ Dextrose IVPB 100 mls/hr Q8H-IV JORGE Administration Protocol Lamotrigine 200 mg 01/16/20 22:00 01/17/20 11:35 Lamictal - PO 200 mg BID JORGE Administration Phenobarbital 45 mg 01/16/20 22:00 01/17/20 11:33 Phenobarbital Liquid - GT 45 mg BID JORGE Administration Potassium Chloride 20 meq 01/17/20 22:00 Potassium Chloride Oral Liquid GT 01/18/20 22:01 BID JORGE Home Medications Medication Instructions Recorded Acyclovir 400 mg GT BID 04/25/17 Baclofen 10 mg GT BID 04/25/17 Clobazam [Onfi -] 10 mg GT HS 04/25/17 Clonazepam 0.5 mg GT TID 04/25/17 Lamotrigine 200 mg GT BID 04/25/17 Multivitamin [Poly-Vitamin] 1 each GT HS 04/25/17 Phenobarbital 45 mg GT BID 04/25/17 Diazepam Rectal Gel [Diastat 7.5 mg PA PRN PRN 05/23/18 Rectal Gel -] Protein Supplement [Promod] 1,190 ml GT DAILY 05/23/18 Budesonide [Pulmicort 0.25 mg 1 neb IH BID 02/05/19 Nebulizer -] Fluticasone Prop 0.05% Nasal 2 spray NS AM 02/05/19 [Flonase -] Magnesium Hydrox 2400MG/30Ml [Milk 20 ml GT BID 02/05/19 of Magnesia -] Albuterol 2.5/Ipratropium 0.5 1 neb IH QID PRN #30 neb 02/14/19 [Duoneb -] Sodium Chloride/Aloe Vera [[place] 22 ml NS BID 06/01/19 Saline Nasal Gel Edroy] Bisacodyl 10 mg RC PRN PRN 11/22/19 Diphenhydramine [Benadryl 12.5 25 mg PO Q6H PRN 11/22/19 MG/5 ML Oral Solution -] Famotidine 10 mg PO BID 11/22/19 Lactobacillus Acidophilus 1 each PO HS 11/22/19 [Acidophilus] Simethicone Liquid [Mylicon Liquid 40 mg PO PRN PRN 11/22/19 -] Acetaminophen Oral Solution 650 mg GT Q6H PRN soln.oral 11/29/19 [Tylenol Oral Solution -] Docusate Liquid [Colace Liquid -] 100 mg GT BID ud 11/29/19 Microbiology 01/13/20 12:24 Blood - Peripheral Venous Blood Culture - Preliminary NO GROWTH OBTAINED AFTER 96 HOURS, INCUBATION TO CONTINUE FOR 1 DAYS. 01/13/20 12:24 Blood - Peripheral Venous Blood Culture - Preliminary NO GROWTH OBTAINED AFTER 96 HOURS, INCUBATION TO CONTINUE FOR 1 DAYS. 01/14/20 01:15 Urine - Urine Clean Catch Urine Culture - Final NO GROWTH OBTAINED 01/14/20 01:15 Urine For Antigen Detection Legionella Antigen - Final 01/14/20 01:15 Urine For Antigen Detection Streptococcus pneumoniae Antigen (M - Final US revealed no gallstones; no intrahepatic duct dilation ASSESSMENT AND PLAN: This patient is a 24yom with a PMHx of Cerebral Palsy, epilespsy, herpes encephalitis, GERD, Aspiration pneumonia, Dysphagia s/p G-tube, presents to ED from [facility] with hypoxia and respiratory distress found to be saturating in the high 70's low 80's patient was found to have aspiration PNA with moderate stool impaction. # sepsis due to aspiration PNA on zosyn continue on Bipap #Ileus bowel regimen continue to monitor #Transaminitis monitor #Seizures: continue home meds DVT Px: lovenox
[2020-01-17] MEDS: ALBUTEROL SO4 2.5/IPRATROPIUM 0.5 INH SOL 3 ML VIAL.NEB. NEB PRN (21:18)
[2020-01-17 22:04] LABS: BLOOD UREA NITROGEN 3.8 mg/dL (7-18); CALCIUM 8.2 mg/dL (8.5-10.1); CREATININE 0.5 mg/dL (0.55-1.3); MAGNESIUM 2.1 mg/dL (1.8-2.4); POTASSIUM 4.2 mmol/L (3.5-5.1)
[2020-01-17] MEDS ORDERED: PT OWN MED DRAWER 7, Y5N ONE (22:18)
[2020-01-17] MEDS: POTASSIUM CHLORIDE ORAL LIQUID 20 MEQ/15 ML GT SCH (22:32)
[2020-01-17] MEDS: cloBAZam 10 MG TABLET GT SCH (22:35)
[2020-01-18] MEDS ORDERED: DEXTROSE 5%-WATER - 50 ML IVPB ONE ×3 (02:17→20:04)
[2020-01-18] MEDS ORDERED: PIPERACILLIN/TAZOBACTAM 3.375 GM VIAL IVPB ONE ×3 (02:17→20:04)
[2020-01-18] MEDS: PIPERACILLIN/TAZOB 3.375 GM 3.375 GM in DEXTROSE 5%-WATER - 50 ML IVPB SCH ×3 (02:35→20:12)
[2020-01-18] MEDS: BUDESONIDE 0.25 MG/2ML INH SUSP VIAL NEB SCH ×2 (07:43→20:27)
--- NOTE | 2020-01-18 07:47 | PN ---
Progress Note, Physician History of Present Illness: PULMONARY NO CHANGE,SOMNOLENT ON 100% NRM - Current Medication List Current Medications: Active Medications Acyclovir (Zovirax Oral Suspension -) 400 mg GT BID [facility] Last Admin: 01/17/20 22:35 Dose: 400 mg Documented by: Albuterol/Ipratropium (Duoneb -) 1 amp NEB QID PRN PRN Reason: WHEEZING Last Admin: 01/17/20 21:18 Dose: 1 amp Documented by: Baclofen (Lioresal -) 5 mg GT BID [facility] Last Admin: 01/17/20 22:33 Dose: 5 mg Documented by: Bisacodyl (Dulcolax Suppository -) 10 mg RC PRN PRN PRN Reason: CONSTIPATION Budesonide (Pulmicort 0.25 Mg Nebulizer -) 1 amp NEB RBID [facility] Last Admin: 01/18/20 07:43 Dose: Not Given Documented by: Clobazam (Onfi -) 10 mg GT HS [facility] Last Admin: 01/17/20 22:35 Dose: 10 mg Documented by: Docusate Sodium (Colace Liquid -) 100 mg GT BID [facility] Last Admin: 01/17/20 22:35 Dose: 100 mg Documented by: Enoxaparin Sodium (Lovenox -) 40 mg SQ DAILY [facility] Last Admin: 01/17/20 11:34 Dose: 40 mg Documented by: Piperacillin Sod/Tazobactam (Sod 3.375 gm/ Dextrose) 50 mls @ 100 mls/hr IVPB Q8H-IV [facility]; Protocol Last Admin: 01/18/20 02:35 Dose: 100 mls/hr Documented by: Lamotrigine (Lamictal -) 200 mg PO BID [facility] Last Admin: 01/17/20 22:34 Dose: 200 mg Documented by: Phenobarbital (Phenobarbital Liquid -) 45 mg GT BID [facility] Last Admin: 01/17/20 22:32 Dose: 45 mg Documented by: Potassium Chloride (Potassium Chloride Oral Liquid) 20 meq GT BID [facility] Stop: 01/18/20 22:01 Last Admin: 01/17/20 22:32 Dose: 20 meq Documented by: - Objective Vital Signs: Vital Signs Temperature 97.9 F 01/18/20 02:00 Pulse Rate 91 H 01/18/20 02:00 Respiratory Rate 20 01/18/20 02:00 Blood Pressure 110/47 L 01/18/20 02:00 O2 Sat by Pulse Oximetry (%) 95 01/18/20 04:50 Constitutional: Yes: Thin, Other (SOMNOLENT) Eyes: Yes: WNL HENT: Yes: Other (MICROCEPHALIC) Neck: Yes: WNL Cardiovascular: Yes: Regular Rate and Rhythm, S1, S2 Respiratory: Yes: Rhonchi (SCATTERED RHONCHI) Gastrointestinal: Yes: Normal Bowel Sounds, Soft, Distention Extremities: Yes: Shortened, Other (CONTRACTED) Edema: No Labs: Problem List - Problems (1) Abnormal LFTs Code(s): R94.5 - ABNORMAL RESULTS OF LIVER FUNCTION STUDIES (2) History of encephalitis Code(s): Z86.61 - PERSONAL HISTORY OF INFECTIONS OF THE CENTRAL NERVOUS SYSTEM (3) Hypoxia Code(s): R09.02 - HYPOXEMIA (4) Pneumonia Code(s): J18.9 - PNEUMONIA, UNSPECIFIED ORGANISM (5) Sepsis Code(s): A41.9 - SEPSIS, UNSPECIFIED ORGANISM Qualifiers: Sepsis type: sepsis due to unspecified organism Sepsis acute organ dysfunction status: unspecified Qualified Code(s): A41.9 - Sepsis, unspecified organism (6) Acute hypoxemic respiratory failure Code(s): J96.01 - ACUTE RESPIRATORY FAILURE WITH HYPOXIA (7) Epilepsy Code(s): G40.909 - EPILEPSY, UNSP, NOT INTRACTABLE, WITHOUT STATUS EPILEPTICUS (8) Hypotension Code(s): I95.9 - HYPOTENSION, UNSPECIFIED (9) Profound mental retardation Code(s): F73 - PROFOUND INTELLECTUAL DISABILITIES (10) Aspiration pneumonia Code(s): J69.0 - PNEUMONITIS DUE TO INHALATION OF FOOD AND VOMIT Assessment/Plan ASSESS: -GROSS ILEUS/OLGIVIE'S SYNDROME -RECURRENT ASP PNA -DYSPHAGIA -CP -SZ -CHRONIC NIPPV DEPENDANT -GERD -HERPES ENCEPHALITIS PLAN: -NPO -Aggressive BR -Titrate FiO2 for SaO2 >92% -BIPAP (patient is apparently BIPAP dependent at [place]) -Continue ABX per ID -IVFs -Follow up on cultures -Continue home medications for seizure/encephalitis -DVT ppx -GI ppx (GERD) -Aspiration precautions DR VILLALTA
[2020-01-18 08:37] LABS: HEMATOCRIT 35.3 % (35.4-49); HEMOGLOBIN 12.1 GM/dL (11.7-16.9); MCH 34.2 pg (25.7-33.7); MCHC 34.4 g/dl (32.0-35.9); MEAN CELL VOLUME 99.6 fl (80-96); MEAN PLT VOLUME 9.8 fl (7.5-11.1); PLATELET COUNT 174 K/MM3 (134-434); RBC 3.54 M/mm3 (4.00-5.60); RDW 15.7 % (11.9-15.9); WHITE BLOOD COUNT 8.2 K/mm3 (4.0-10.0)
[2020-01-18 09:06] LABS: BILIRUBIN,TOTAL 0.4 mg/dL (0.2-1); CALCIUM 8.9 mg/dL (8.5-10.1); CREATININE 0.5 mg/dL (0.55-1.3); MAGNESIUM 1.8 mg/dL (1.8-2.4); PHOSPHOROUS 2.8 mg/dL (2.5-4.9); POTASSIUM 3.7 mmol/L (3.5-5.1); TOT PROT 7.3 g/dl (6.4-8.2)
[2020-01-18 09:46] LABS: BLOOD UREA NITROGEN 2.5 mg/dL (7-18)
[2020-01-18] MEDS ORDERED: PT OWN MED DRAWER 7, Y5N ONE ×2 (10:10→23:01)
[2020-01-18] MEDS: PHENobarbital 20 MG/5 ML UNIT-DOSE CUP GT SCH ×2 (10:57→23:15)
[2020-01-18] MEDS: ACYCLOVIR 200 MG/5 ML LIQUID GT SCH ×2 (11:00→23:16)
[2020-01-18] MEDS: POTASSIUM CHLORIDE ORAL LIQUID 20 MEQ/15 ML GT SCH ×2 (11:00→23:14)
[2020-01-18] MEDS: lamoTRIgine 100 MG TABLET PO SCH ×2 (11:01→23:14)
[2020-01-18] MEDS: DOCUSATE NA 100 MG/10 ML UNIT-DOSE CUPS GT SCH ×2 (11:01→23:14)
[2020-01-18] MEDS: ENOXAPARIN NA (PORCINE) 40 MG/0.4 ML DISP.SYRIN SQ SCH (11:01)
[2020-01-18] MEDS: BACLOFEN 10 MG TABLET (FP) GT SCH ×2 (11:01→23:14)
--- NOTE | 2020-01-18 14:53 | PN ---
Physical Exam: SUBJECTIVE: Patient seen and examined. Pt remained on BiPAP overnight. IPAP/EPAP 12/6 @ 60% FiO2. Was saturating 95% throughout the night. As per day nurse, pt had 1 episode of seizure that lasted 2 minutes. OBJECTIVE: Vital Signs Period Temp Pulse Resp BP Sys/Linares Pulse Ox Last 24 Hr 97.9 F-99.7 F 85-102 20-22 100-119/41-67 94-99 GENERAL: Somnolent, but arousable. No acute distress. HEENT: Microcephaly. Atraumatic. PERRL, dry mucous membranes. LUNGS: scattered rhonchi b/l HEART: RRR, normal S1 and S2 without murmur ABDOMEN: Distended, nontender to palpation, G-tube in place. EXTREMITIES: warm, well-perfused, contracted. No edema SKIN: Warm, diaphoretic. : Blood visualized in esqueda catheter. CBC, BMP 01/18/20 07:49 01/18/20 07:49 Active Medications Acyclovir (Zovirax Oral Suspension -) 400 mg GT BID [facility] Last Admin: 01/18/20 11:00 Dose: 400 mg Documented by: Albuterol/Ipratropium (Duoneb -) 1 amp NEB QID PRN PRN Reason: WHEEZING Last Admin: 01/17/20 21:18 Dose: 1 amp Documented by: Baclofen (Lioresal -) 5 mg GT BID [facility] Last Admin: 01/18/20 11:01 Dose: 5 mg Documented by: Bisacodyl (Dulcolax Suppository -) 10 mg RC PRN PRN PRN Reason: CONSTIPATION Budesonide (Pulmicort 0.25 Mg Nebulizer -) 1 amp NEB RBID [facility] Last Admin: 01/18/20 07:43 Dose: Not Given Documented by: Clobazam (Onfi -) 10 mg GT HS [facility] Last Admin: 01/17/20 22:35 Dose: 10 mg Documented by: Docusate Sodium (Colace Liquid -) 100 mg GT BID [facility] Last Admin: 01/18/20 11:01 Dose: 100 mg Documented by: Enoxaparin Sodium (Lovenox -) 40 mg SQ DAILY [facility] Last Admin: 01/18/20 11:01 Dose: 40 mg Documented by: Piperacillin Sod/Tazobactam (Sod 3.375 gm/ Dextrose) 50 mls @ 100 mls/hr IVPB Q8H-IV [facility]; Protocol Last Admin: 01/18/20 12:48 Dose: 100 mls/hr Documented by: Lamotrigine (Lamictal -) 200 mg PO BID [facility] Last Admin: 01/18/20 11:01 Dose: 200 mg Documented by: Phenobarbital (Phenobarbital Liquid -) 45 mg GT BID [facility] Last Admin: 01/18/20 10:57 Dose: 45 mg Documented by: Potassium Chloride (Potassium Chloride Oral Liquid) 20 meq GT BID [facility] Stop: 01/18/20 22:01 Last Admin: 01/18/20 11:00 Dose: 20 meq Documented by: CXR; 01/12 Single view of the chest has been submitted. The prior study of 11/28/2019 at 1518 hours there is increased abdominal distention and possible pneumoperitoneum. The left base is quite dense. The patient is rotated to the left. There is a weak inspiration with prominent mediastinal and congestive changes CT A/P; 01/12 Large volume stool impaction up to the level of the sigmoid colon with associated gaseous distention of large bowel proximally. This finding is similar to prior study with slightly greater distention at the level of the sigmoid. If further imaging evaluation of bowel is clinically desired, recommend enteric contrast administration on follow-up. No evidence of pneumoperitoneum. Refer to concurrent chest CT report for complete findings above the diaphragm, including discussion of suspected aspiration pneumonia. CT chest; 01/12 Low attenuation material identified within the bilateral lower lobe bronchi and left upper lobe bronchi and associated large consolidations affecting the bilateral lower and left upper hemithoraces are highly suspicious for aspiration pneumonia. Cardiomegaly with prominent pulmonary vascularity may represent sequela of underlying congestive heart disease. Recommend clinical correlation. Refer to concurrent CT abdomen and pelvis report for complete findings below the diaphragm. CXR; 01/13 Single view the chest reveals a weak inspiratory effort with abdominal distention suggestive of either an obstruction or ileus, chin artifact obscuring discrete detail of the left hemithorax, rotation to the left and some infiltrative changes at the right base. Correlation recommended. Please see CT report from 01/13/2020 at 1432 hours. US limited; 01/13 Limited exam. The liver is within normal limits in size and echotexture. Gallbladder is adequately distended without intraluminal stones or thickening of its wall. No intrahepatic bile duct dilatation is seen. Questionable visua lization of a nondilated common bile duct measuring 4 mm The right kidney measures 8.5 cm sagittal length and appears unremarkable. Nonvisualization of the pancreas Visualized portion of the proximal abdominal aorta and inferior vena cava appear unremarkable. Normal flow in the main portal vein. KUB; 01/13 A single view of the abdomen reveals generalized abdominal distention suggestive of an ileus. There is no sign of a fecal impaction or gross constipation. A rectal tube is not seen. There is evidence of previous bilateral hip surgeries. There is a scoliosis with convexity to the right. Correlation recommended. CXR; 01/16 A single view of the chest is been submitted. Again noted is abdominal distention, retrocardiac atelectasis or infiltrate with large heart, weak inspiration and congestive changes with scoliosis and possible old rib trauma. Correlation recommended. KUB; 01/16 Single view of the abdomen again reveals distended bowel mainly involving colon rather than small bowel. The cecum or sigmoid appears distended over the lower LS spine and upper sacrum. There is hand artifact in the right upper quadrant and a G-tube with some questionable material in the stomach. Free air or pneumatosis is not seen. There is no air or stool seen in the rectum. There is a dense left base. There is evidence of bilateral hip surgeries. Correlation and follow-up recommended. For more complete evaluation, CT may be of help. ASSESSMENT/PLAN: 24 year old M from [facility], with PMH cerebral palsy, herpes encephalitis, GERD, aspiration PNA, dysphagia (s/p G tube) presented to ED with hypoxia and respiratory distress. Pt was downgraded from ICU due to hypoxia and hypotension. Was placed on BiPAP with good response. Pt is currently admitted for aspiration PNA and ileus. Sepsis secondary to aspiration PNA -c/w zosyn (started 01/13), today is day 5. -ID consulted. Recommended c/w zosyn. - Pulmonology consulted. Recommended aggressive BR, keep FiO2 >92%, c/w BiPAP, c/w abx -CT chest, CXR as above. -Cultures: -Sputum culture non-lactose fermenting GNB, pending final read. Ucx negative. Urine legionella/strep pneumo negative. Bcx negative thus far. -supplemental O2, maintain SaO2 >92% -aspiration precautions -COVID-19 PCR negative -Maintain MAP >65 - c/w duoneb and budesonide Hypokalemia, hypomagnesemia, improved - Repleted with liquid KCl and magnesium sulfate. - f/u electrolytes and replete as necessary Ileus -CT abd as above. -c/w bowel regimen -Repeat KUB as above - Hb 13.5-->11.5-->12.1. Will continue to monitor. F/u stool for occult blood. Seizures - 1 episode seizure, lasting 2 minutes on 01/18/2020 -continue home dose lamotrigine, baclofen, clobazam, phenobarbital Hematuria -F/u UA -Low BUN, likely due to body habitus -F/u PT/INR, PTT Hx of herpes encephalitis -c/w acyclovir 400 BID Transaminitis, improved -continue to monitor LFT -US as above. No gallstones, no intrahepatic duct dilation. GERD -consider PPI, however, h/o hypomagnesemia FEN -No standing fluids -monitor and replete lytes -NPO Ppx -DVT: Lovenox Dispo: continue to monitor on m/s Visit type - Emergency Visit Emergency Visit: Yes ED Registration Date: 01/13/20 Care time: The patient presented to the Emergency Department on the above date and was hospitalized for further evaluation of their emergent condition. - New Patient This patient is new to me today: No - Critical Care Critical Care patient: No ATTENDING PHYSICIAN STATEMENT I saw and evaluated the patient. I reviewed the resident's note and discussed the case with the resident. I agree with the resident's findings and plan as documented. SUBJECTIVE: OBJECTIVE: ASSESSMENT AND PLAN:
--- NOTE | 2020-01-18 18:38 | PN ---
Teaching Attending Note Name of Resident: Evie Wolfe ATTENDING PHYSICIAN STATEMENT I saw and evaluated the patient. I reviewed the resident's note and discussed the case with the resident. I agree with the resident's findings and plan as documented. SUBJECTIVE: OBJECTIVE: Vital Signs Temperature 98.8 F 01/18/20 14:00 Pulse Rate 97 H 01/18/20 14:00 Respiratory Rate 20 01/18/20 14:00 Blood Pressure 119/59 L 01/18/20 14:00 O2 Sat by Pulse Oximetry (%) 97 01/18/20 17:07 PE: per resident's note CBCD WBC 8.2 K/mm3 (4.0-10.0) 01/18/20 07:49 RBC 3.54 M/mm3 (4.00-5.60) L 01/18/20 07:49 Hgb 12.1 GM/dL (11.7-16.9) 01/18/20 07:49 Hct 35.3 % (35.4-49) L 01/18/20 07:49 MCV 99.6 fl (80-96) H 01/18/20 07:49 MCHC 34.4 g/dl (32.0-35.9) 01/18/20 07:49 RDW 15.7 % (11.9-15.9) 01/18/20 07:49 Plt Count 174 K/MM3 (134-434) 01/18/20 07:49 MPV 9.8 fl (7.5-11.1) 01/18/20 07:49 CMP Sodium 142 mmol/L (136-145) 01/18/20 07:49 Potassium 3.7 mmol/L (3.5-5.1) 01/18/20 07:49 Chloride 105 mmol/L (98-107) 01/18/20 07:49 Carbon Dioxide 27 mmol/L (21-32) 01/18/20 07:49 Anion Gap 10 MMOL/L (8-16) 01/18/20 07:49 BUN 2.5 mg/dL (7-18) L* 01/18/20 07:49 Creatinine 0.5 mg/dL (0.55-1.3) L 01/18/20 07:49 Random Glucose 85 mg/dL (74-106) 01/18/20 07:49 Calcium 8.9 mg/dL (8.5-10.1) 01/18/20 07:49 Total Bilirubin 0.4 mg/dL (0.2-1) 01/18/20 07:49 AST 31 U/L (15-37) 01/18/20 07:49 ALT 59 U/L (13-61) 01/18/20 07:49 Alkaline Phosphatase 331 U/L (45-117) H 01/18/20 07:49 Total Protein 7.3 g/dl (6.4-8.2) 01/18/20 07:49 Albumin 3.0 g/dl (3.4-5.0) L 01/18/20 07:49 CARDIAC ENZYMES Troponin I < 0.02 ng/ml (0.00-0.05) 01/13/20 12:29 Current Medications Generic Name Dose Route Start Last Admin Trade Name Freq PRN Reason Stop Dose Admin Acyclovir 400 mg 01/16/20 22:00 01/18/20 11:00 Zovirax Oral Suspension - GT 400 mg BID [facility] Administration Albuterol/Ipratropium 1 amp 01/16/20 18:33 01/17/20 21:18 Duoneb - NEB 1 amp QID PRN Administration WHEEZING Baclofen 5 mg 01/16/20 22:00 01/18/20 11:01 Lioresal - GT 5 mg BID [facility] Administration Bisacodyl 10 mg 01/16/20 18:33 Dulcolax Suppository - RC PRN PRN CONSTIPATION Budesonide 1 amp 01/16/20 20:00 01/18/20 07:43 Pulmicort 0.25 Mg Nebulizer - NEB Not Given RBID [facility] Clobazam 10 mg 01/16/20 22:00 01/17/20 22:35 Onfi - GT 10 mg HS [facility] Administration Docusate Sodium 100 mg 01/16/20 22:00 01/18/20 11:01 Colace Liquid - GT 100 mg BID [facility] Administration Enoxaparin Sodium 40 mg 01/17/20 10:00 01/18/20 11:01 Lovenox - SQ 40 mg DAILY [facility] Administration Piperacillin Sod/Tazobactam 50 mls @ 100 mls/hr 01/17/20 02:00 01/18/20 12:48 Sod 3.375 gm/ Dextrose IVPB 100 mls/hr Q8H-IV [facility] Administration Protocol Lamotrigine 200 mg 01/16/20 22:00 01/18/20 11:01 Lamictal - PO 200 mg BID [facility] Administration Phenobarbital 45 mg 01/16/20 22:00 01/18/20 10:57 Phenobarbital Liquid - GT 45 mg BID [facility] Administration Potassium Chloride 20 meq 01/17/20 22:00 01/18/20 11:00 Potassium Chloride Oral Liquid GT 01/18/20 22:01 20 meq BID [facility] Administration Home Medications Medication Instructions Recorded Acyclovir 400 mg GT BID 04/25/17 Baclofen 10 mg GT BID 04/25/17 Clobazam [Onfi -] 10 mg GT HS 04/25/17 Clonazepam 0.5 mg GT TID 04/25/17 Lamotrigine 200 mg GT BID 04/25/17 Multivitamin [Poly-Vitamin] 1 each GT HS 04/25/17 Phenobarbital 45 mg GT BID 04/25/17 Diazepam Rectal Gel [Diastat 7.5 mg [place] PRN PRN 05/23/18 Rectal Gel -] Protein Supplement [Promod] 1,190 ml GT DAILY 05/23/18 Budesonide [Pulmicort 0.25 mg 1 neb IH BID 02/05/19 Nebulizer -] Fluticasone Prop 0.05% Nasal 2 spray NS AM 02/05/19 [Flonase -] Magnesium Hydrox 2400MG/30Ml [Milk 20 ml GT BID 02/05/19 of Magnesia -] Albuterol 2.5/Ipratropium 0.5 1 neb IH QID PRN #30 neb 02/14/19 [Duoneb -] Sodium Chloride/Aloe Vera [[place] 22 ml NS BID 06/01/19 Saline Nasal Gel [place]] Bisacodyl 10 mg RC PRN PRN 11/22/19 Diphenhydramine [Benadryl 12.5 25 mg PO Q6H PRN 11/22/19 MG/5 ML Oral Solution -] Famotidine 10 mg PO BID 11/22/19 Lactobacillus Acidophilus 1 each PO HS 11/22/19 [Acidophilus] Simethicone Liquid [Mylicon Liquid 40 mg PO PRN PRN 11/22/19 -] Docusate Liquid [Colace Liquid -] 100 mg GT BID ud 11/29/19 Microbiology 01/13/20 12:24 Blood - Peripheral Venous Blood Culture - Final NO GROWTH AFTER 5 DAYS INCUBATION 01/13/20 12:24 Blood - Peripheral Venous Blood Culture - Final NO GROWTH AFTER 5 DAYS INCUBATION 01/16/20 23:44 Sputum - Oropharynx Suctioned Sputum Gram Stain - Final 01/16/20 23:44 Sputum - Oropharynx Suctioned Sputum Sputum Culture - Preliminary Non Lactose Fermenting Gnb 01/14/20 01:15 Urine - Urine Clean Catch Urine Culture - Final NO GROWTH OBTAINED 01/14/20 01:15 Urine For Antigen Detection Legionella Antigen - Final 01/14/20 01:15 Urine For Antigen Detection Streptococcus pneumoniae Antigen (M - Final US revealed no gallstones; no intrahepatic duct dilation ASSESSMENT AND PLAN: This patient is a 24yom with a PMHx of Cerebral Palsy, epilespsy, herpes encephalitis, GERD, Aspiration pneumonia, Dysphagia s/p G-tube, presents to ED from [facility] facility with hypoxia and respiratory distress found to be saturating in the high 70's low 80's patient was found to have aspiration PNA with moderate stool impaction. # sepsis due to aspiration PNA on zosyn continue on Bipap; elevate head of bed to 45 #Ileus bowel regimen continue to monitor #Transaminitis monitor #Seizures: continue home meds DVT Px: lovenox
[2020-01-18 19:16] LABS: EPI CELLS 12 /uL (0-25.1); HYALINE CASTS 2 /uL (0-3.1); URINE APPEARANCE CLEAR; URINE BACTERIA 11 /uL (0-1359); URINE BILIRUBIN NEGATIVE (NEGATIVE); URINE COLOR YELLOW; URINE GLUCOSE (UA) NEGATIVE (NEGATIVE); URINE KETONE 3+ (NEGATIVE); URINE LEUK ESTERASE TRACE (NEGATIVE); URINE NITRITE NEGATIVE (NEGATIVE); URINE PROTEIN 2+ (NEGATIVE); URINE RBC 2765 /uL (0-23.9); URINE UROBILINOGEN 0.2 mg/dL (0.2-1.0); URINE WBC 51 /uL (0-25.8)
[2020-01-18] MEDS: cloBAZam 10 MG TABLET GT SCH (23:15)
[2020-01-19] MEDS ORDERED: PIPERACILLIN/TAZOBACTAM 3.375 GM VIAL IVPB ONE ×3 (01:57→17:09)
[2020-01-19] MEDS ORDERED: DEXTROSE 5%-WATER - 50 ML IVPB ONE ×3 (01:57→17:09)
[2020-01-19] MEDS: PIPERACILLIN/TAZOB 3.375 GM 3.375 GM in DEXTROSE 5%-WATER - 50 ML IVPB SCH ×3 (02:29→17:34)
[2020-01-19] MEDS ORDERED: LORazepam 2 MG/ML SDV VIAL ONE (07:42)
[2020-01-19] MEDS ORDERED: diazePAM RECTAL GEL 10 MG KIT (PRE-CALIBRATED) PR ONE ×2 (07:44→07:51)
--- NOTE | 2020-01-19 07:48 | RAPID ---
Physical Examination Vital Signs: Vital Signs Temperature 99 F 01/19/20 02:00 Pulse Rate 81 01/19/20 02:00 Respiratory Rate 22 H 01/19/20 02:00 Blood Pressure 96/43 L 01/19/20 02:00 O2 Sat by Pulse Oximetry (%) 97 01/19/20 04:32 Labs: CBC, BMP 01/18/20 07:49 01/18/20 07:49 Rapid Response - Rapid Response Assessment: Rapid response called overhead. ENGINEERING PSYCHOLOGIST responded immediately. nurse signed out seizure activity Primary team notified. and responded rectal diazepam ordered STAT labs reviewed BL rhonchi, R>L; on BiPAP S1 and S2, RRR Neuro unable to assess contractures at baseline
[2020-01-19] MEDS ORDERED: diazePAM RECTAL GEL 10 MG KIT (PRE-CALIBRATED) PR PRN (07:55)
[2020-01-19 09:59] LABS: HEMATOCRIT 35.8 % (35.4-49); HEMOGLOBIN 12.4 GM/dL (11.7-16.9); MCH 34.7 pg (25.7-33.7); MCHC 34.5 g/dl (32.0-35.9); MEAN CELL VOLUME 100.4 fl (80-96); PLATELET COUNT 184 K/MM3 (134-434); RBC 3.56 M/mm3 (4.00-5.60); RDW 15.7 % (11.9-15.9); WHITE BLOOD COUNT 8.5 K/mm3 (4.0-10.0)
[2020-01-19 10:07] LABS: INR 1.17 (0.83-1.09); PROTHROMBIN TIME (PATIENT) 13.8 SEC (9.7-13.0)
[2020-01-19] MEDS: lamoTRIgine 100 MG TABLET PO SCH ×2 (10:17→21:45)
[2020-01-19] MEDS: PHENobarbital 20 MG/5 ML UNIT-DOSE CUP GT SCH ×2 (10:18→21:43)
[2020-01-19] MEDS: BACLOFEN 10 MG TABLET (FP) GT SCH ×2 (10:18→21:44)
[2020-01-19] MEDS: ENOXAPARIN NA (PORCINE) 40 MG/0.4 ML DISP.SYRIN SQ SCH (10:30)
[2020-01-19] MEDS: DOCUSATE NA 100 MG/10 ML UNIT-DOSE CUPS GT SCH ×2 (10:30→21:45)
[2020-01-19 10:33] LABS: ALBUMIN 3.1 g/dl (3.4-5.0); BLOOD UREA NITROGEN 5.3 mg/dL (7-18); CALCIUM 8.8 mg/dL (8.5-10.1); CREATININE 0.6 mg/dL (0.55-1.3); MAGNESIUM 1.6 mg/dL (1.8-2.4); PHOSPHOROUS 3.2 mg/dL (2.5-4.9); POTASSIUM 3.8 mmol/L (3.5-5.1); TOT PROT 7.3 g/dl (6.4-8.2)
[2020-01-19 10:34] LABS: BILIRUBIN,TOTAL 0.6 mg/dL (0.2-1)
--- NOTE | 2020-01-19 10:59 | PN ---
Progress Note (short form) - Note Progress Note: PULMONARY Remains on BiPAP 60% FiO2. Nonverbal. No fevers recorded. Vital Signs Period Temp Pulse Resp BP Sys/Linares Pulse Ox Last 24 Hr 98.8 F-99.0 F 79-97 20-24 96-119/42-59 97-99 Gen: NAD on BiPAP Heart: RRR Lung: decreased breath sounds at the bases Abd: soft, nontender Ext: contracted CBC, BMP 01/19/20 09:23 01/19/20 09:23 Active Medications Acyclovir (Zovirax Oral Suspension -) 400 mg GT BID [facility] Last Admin: 01/18/20 23:16 Dose: 400 mg Documented by: Albuterol/Ipratropium (Duoneb -) 1 amp NEB QID PRN PRN Reason: WHEEZING Last Admin: 01/17/20 21:18 Dose: 1 amp Documented by: Baclofen (Lioresal -) 5 mg GT BID [facility] Last Admin: 01/19/20 10:18 Dose: 5 mg Documented by: Bisacodyl (Dulcolax Suppository -) 10 mg RC PRN PRN PRN Reason: CONSTIPATION Budesonide (Pulmicort 0.25 Mg Nebulizer -) 1 amp NEB RBID [facility] Last Admin: 01/18/20 20:27 Dose: 1 amp Documented by: Clobazam (Onfi -) 10 mg GT HS [facility] Last Admin: 01/18/20 23:15 Dose: 10 mg Documented by: Diazepam (Diastat Rectal Gel -) 7.5 mg [place] Q12H PRN PRN Reason: AGITATION Docusate Sodium (Colace Liquid -) 100 mg GT BID [facility] Last Admin: 01/19/20 10:30 Dose: 100 mg Documented by: Enoxaparin Sodium (Lovenox -) 40 mg SQ DAILY [facility] Last Admin: 01/19/20 10:30 Dose: 40 mg Documented by: Piperacillin Sod/Tazobactam (Sod 3.375 gm/ Dextrose) 50 mls @ 100 mls/hr IVPB Q8H-IV [facility]; Protocol Last Admin: 01/19/20 10:17 Dose: 100 mls/hr Documented by: Lamotrigine (Lamictal -) 200 mg PO BID [facility] Last Admin: 01/19/20 10:17 Dose: 200 mg Documented by: Phenobarbital (Phenobarbital Liquid -) 45 mg GT BID [facility] Last Admin: 01/19/20 10:18 Dose: 45 mg Documented by: A/P Acute on Chronic Hypoxic Respiratory Failure Pneumonia likely Aspiration Ileus Cerebral Palsy Seizure Disorder Mental Retardation Functional Quadriplegia - continue antibiotics - O2 to keep SpO2 >90% - can try ventimask - aspiration precautions - NPO - DVT prophylaxis
--- NOTE | 2020-01-19 16:45 | PN ---
Teaching Attending Note Name of Resident: Evie Wolfe ATTENDING PHYSICIAN STATEMENT I saw and evaluated the patient. I reviewed the resident's note and discussed the case with the resident. I agree with the resident's findings and plan as documented. SUBJECTIVE: Patient is comfortable with NAd, had a seizure this morning OBJECTIVE: Vital Signs Temperature 99.5 F 01/19/20 15:10 Pulse Rate 99 H 01/19/20 15:10 Respiratory Rate 22 H 01/19/20 15:10 Blood Pressure 108/48 L 01/19/20 15:10 O2 Sat by Pulse Oximetry (%) 93 L 01/19/20 15:10 PE:per resident's note CBCD WBC 8.5 K/mm3 (4.0-10.0) 01/19/20 09:23 RBC 3.56 M/mm3 (4.00-5.60) L 01/19/20 09:23 Hgb 12.4 GM/dL (11.7-16.9) 01/19/20 09:23 Hct 35.8 % (35.4-49) 01/19/20 09:23 MCV 100.4 fl (80-96) H 01/19/20 09:23 MCHC 34.5 g/dl (32.0-35.9) 01/19/20 09:23 RDW 15.7 % (11.9-15.9) 01/19/20 09:23 Plt Count 184 K/MM3 (134-434) 01/19/20 09:23 MPV 10.0 fl (7.5-11.1) 01/19/20 09:23 CMP Sodium 141 mmol/L (136-145) 01/19/20 09:23 Potassium 3.8 mmol/L (3.5-5.1) 01/19/20 09:23 Chloride 104 mmol/L (98-107) 01/19/20 09:23 Carbon Dioxide 26 mmol/L (21-32) 01/19/20 09:23 Anion Gap 12 MMOL/L (8-16) 01/19/20 09:23 BUN 5.3 mg/dL (7-18) L 01/19/20 09:23 Creatinine 0.6 mg/dL (0.55-1.3) 01/19/20 09:23 Random Glucose 59 mg/dL (74-106) L 01/19/20 09:23 Calcium 8.8 mg/dL (8.5-10.1) 01/19/20 09:23 Total Bilirubin 0.6 mg/dL (0.2-1) 01/19/20 09:23 AST 25 U/L (15-37) 01/19/20 09:23 ALT 48 U/L (13-61) 01/19/20 09:23 Alkaline Phosphatase 282 U/L (45-117) H 01/19/20 09:23 Total Protein 7.3 g/dl (6.4-8.2) 01/19/20 09:23 Albumin 3.1 g/dl (3.4-5.0) L 01/19/20 09:23 CARDIAC ENZYMES Troponin I < 0.02 ng/ml (0.00-0.05) 01/13/20 12:29 Current Medications Generic Name Dose Route Start Last Admin Trade Name Freq PRN Reason Stop Dose Admin Acyclovir 400 mg 01/16/20 22:00 01/18/20 23:16 Zovirax Oral Suspension - GT 400 mg BID [facility] Administration Albuterol/Ipratropium 1 amp 01/16/20 18:33 01/17/20 21:18 Duoneb - NEB 1 amp QID PRN Administration WHEEZING Baclofen 5 mg 01/16/20 22:00 01/19/20 10:18 Lioresal - GT 5 mg BID JORGE Administration Bisacodyl 10 mg 01/16/20 18:33 Dulcolax Suppository - RC PRN PRN CONSTIPATION Budesonide 1 amp 01/16/20 20:00 01/18/20 20:27 Pulmicort 0.25 Mg Nebulizer - NEB 1 amp RBID [facility] Administration Clobazam 10 mg 01/16/20 22:00 01/18/20 23:15 Onfi - GT 10 mg HS JORGE Administration Diazepam 7.5 mg 01/19/20 15:25 Diastat Rectal Gel - [place] DAILY PRN AGITATION Docusate Sodium 100 mg 01/16/20 22:00 01/19/20 10:30 Colace Liquid - GT 100 mg BID [facility] Administration Enoxaparin Sodium 40 mg 01/17/20 10:00 01/19/20 10:30 Lovenox - SQ 40 mg DAILY [facility] Administration Piperacillin Sod/Tazobactam 50 mls @ 100 mls/hr 01/17/20 02:00 01/19/20 10:17 Sod 3.375 gm/ Dextrose IVPB 100 mls/hr Q8H-IV [facility] Administration Protocol Lamotrigine 200 mg 01/16/20 22:00 01/19/20 10:17 Lamictal - PO 200 mg BID [facility] Administration Phenobarbital 45 mg 01/16/20 22:00 01/19/20 10:18 Phenobarbital Liquid - GT 45 mg BID [facility] Administration Home Medications Medication Instructions Recorded Acyclovir 400 mg GT BID 04/25/17 Baclofen 10 mg GT BID 04/25/17 Clobazam [Onfi -] 10 mg GT HS 04/25/17 Clonazepam 0.5 mg GT TID 04/25/17 Lamotrigine 200 mg GT BID 04/25/17 Multivitamin [Poly-Vitamin] 1 each GT HS 04/25/17 Phenobarbital 45 mg GT BID 04/25/17 Diazepam Rectal Gel [Diastat 7.5 mg [place] PRN PRN 05/23/18 Rectal Gel -] Protein Supplement [Promod] 1,190 ml GT DAILY 05/23/18 Budesonide [Pulmicort 0.25 mg 1 neb IH BID 02/05/19 Nebulizer -] Fluticasone Prop 0.05% Nasal 2 spray NS AM 02/05/19 [Flonase -] Magnesium Hydrox 2400MG/30Ml [Milk 20 ml GT BID 02/05/19 of Magnesia -] Albuterol 2.5/Ipratropium 0.5 1 neb IH QID PRN #30 neb 02/14/19 [Duoneb -] Sodium Chloride/Aloe Vera [[place] 22 ml NS BID 06/01/19 Saline Nasal Gel [place]] Bisacodyl 10 mg RC PRN PRN 11/22/19 Diphenhydramine [Benadryl 12.5 25 mg PO Q6H PRN 11/22/19 MG/5 ML Oral Solution -] Famotidine 10 mg PO BID 11/22/19 Lactobacillus Acidophilus 1 each PO HS 11/22/19 [Acidophilus] Simethicone Liquid [Mylicon Liquid 40 mg PO PRN PRN 11/22/19 -] Docusate Liquid [Colace Liquid -] 100 mg GT BID ud 11/29/19 Microbiology 01/16/20 23:44 Gram Stain - Final Sputum - Oropharynx Suctioned Sputum Sputum Culture - Final Pseudomonas Aeruginosa 01/13/20 12:24 Blood Culture - Final Blood - Peripheral Venous NO GROWTH AFTER 5 DAYS INCUBATION 01/13/20 12:24 Blood Culture - Final Blood - Peripheral Venous NO GROWTH AFTER 5 DAYS INCUBATION Microbiology 01/16/20 23:44 Sputum - Oropharynx Suctioned Sputum Gram Stain - Final 01/16/20 23:44 Sputum - Oropharynx Suctioned Sputum Sputum Culture - Final Pseudomonas Aeruginosa 01/13/20 12:24 Blood - Peripheral Venous Blood Culture - Final NO GROWTH AFTER 5 DAYS INCUBATION 01/13/20 12:24 Blood - Peripheral Venous Blood Culture - Final NO GROWTH AFTER 5 DAYS INCUBATION 01/14/20 01:15 Urine - Urine Clean Catch Urine Culture - Final NO GROWTH OBTAINED 01/14/20 01:15 Urine For Antigen Detection Legionella Antigen - Final 01/14/20 01:15 Urine For Antigen Detection Streptococcus pneumoniae Antigen (M - Final US revealed no gallstones; no intrahepatic duct dilation ASSESSMENT AND PLAN: This patient is a 24yom with a PMHx of Cerebral Palsy, epilespsy, herpes encephalitis, GERD, Aspiration pneumonia, Dysphagia s/p G-tube, presents to ED from [facility] facility with hypoxia and respiratory distress found to be saturating in the high 70's low 80's patient was found to have aspiration PNA with moderate stool impaction. # sepsis due to aspiration PNA on zosyn continue on Bipap; elevate head of bed to 45 #Ileus bowel regimen continue to monitor #Transaminitis monitor #hx of Seizures s/p seizure: continue home meds, ordered diastat prn 7.5mg prn DVT Px: lovenox on Tube feed Promote 1.5mg
--- NOTE | 2020-01-19 17:23 | PN ---
Physical Exam: SUBJECTIVE: Patient seen and examined. On bipap overnight, 60% FiO2. As per night nurse, pt has issue of access. Currently only has 1 IV access. 1 episode of seizure today 07:45. OBJECTIVE: Vital Signs Period Temp Pulse Resp BP Sys/Linares Pulse Ox Last 24 Hr 98.8 F-99.5 F 79-99 20-24 96-110/42-48 93-99 GENERAL: Somnolent, but arousable. No acute distress. HEENT: Microcephaly. Atraumatic. PERRL, dry mucous membranes. LUNGS: scattered rhonchi b/l HEART: RRR, normal S1 and S2 without murmur ABDOMEN: Distended, nontender to palpation, G-tube in place. EXTREMITIES: warm, well-perfused, contracted. No edema SKIN: Warm, diaphoretic. : Blood visualized in esqueda catheter. CBC, BMP 01/19/20 09:23 01/19/20 09:23 Active Medications Acyclovir (Zovirax Oral Suspension -) 400 mg GT BID [facility] Last Admin: 01/18/20 23:16 Dose: 400 mg Documented by: Albuterol/Ipratropium (Duoneb -) 1 amp NEB QID PRN PRN Reason: WHEEZING Last Admin: 01/17/20 21:18 Dose: 1 amp Documented by: Baclofen (Lioresal -) 5 mg GT BID [facility] Last Admin: 01/19/20 10:18 Dose: 5 mg Documented by: Bisacodyl (Dulcolax Suppository -) 10 mg RC PRN PRN PRN Reason: CONSTIPATION Budesonide (Pulmicort 0.25 Mg Nebulizer -) 1 amp NEB RBID [facility] Last Admin: 01/18/20 20:27 Dose: 1 amp Documented by: Clobazam (Onfi -) 10 mg GT HS [facility] Last Admin: 01/18/20 23:15 Dose: 10 mg Documented by: Diazepam (Diastat Rectal Gel -) 7.5 mg VT DAILY PRN PRN Reason: AGITATION Docusate Sodium (Colace Liquid -) 100 mg GT BID [facility] Last Admin: 01/19/20 10:30 Dose: 100 mg Documented by: Enoxaparin Sodium (Lovenox -) 40 mg SQ DAILY [facility] Last Admin: 01/19/20 10:30 Dose: 40 mg Documented by: Piperacillin Sod/Tazobactam (Sod 3.375 gm/ Dextrose) 50 mls @ 100 mls/hr IVPB Q8H-IV JORGE; Protocol Last Admin: 01/19/20 10:17 Dose: 100 mls/hr Documented by: Lamotrigine (Lamictal -) 200 mg PO BID [facility] Last Admin: 01/19/20 10:17 Dose: 200 mg Documented by: Phenobarbital (Phenobarbital Liquid -) 45 mg GT BID [facility] Last Admin: 01/19/20 10:18 Dose: 45 mg Documented by: CXR; 01/12 Single view of the chest has been submitted. The prior study of 11/28/2019 at 1518 hours there is increased abdominal distention and possible pneumoperitoneum. The left base is quite dense. The patient is rotated to the left. There is a weak inspiration with prominent mediastinal and congestive changes CT A/P; 01/12 Large volume stool impaction up to the level of the sigmoid colon with associated gaseous distention of large bowel proximally. This finding is similar to prior study with slightly greater distention at the level of the sigmoid. If further imaging evaluation of bowel is clinically desired, recommend enteric contrast administration on follow-up. No evidence of pneumoperitoneum. Refer to concurrent chest CT report for complete findings above the diaphragm, including discussion of suspected aspiration pneumonia. CT chest; 01/12 Low attenuation material identified within the bilateral lower lobe bronchi and left upper lobe bronchi and associated large consolidations affecting the bilateral lower and left upper hemithoraces are highly suspicious for aspiration pneumonia. Cardiomegaly with prominent pulmonary vascularity may represent sequela of underlying congestive heart disease. Recommend clinical correlation. Refer to concurrent CT abdomen and pelvis report for complete findings below the diaphragm. CXR; 01/13 Single view the chest reveals a weak inspiratory effort with abdominal distention suggestive of either an obstruction or ileus, chin artifact obscuring discrete detail of the left hemithorax, rotation to the left and some infiltrative changes at the right base. Correlation recommended. Please see CT report from 01/13/2020 at 1432 hours. US limited; 01/13 Limited exam. The liver is within normal limits in size and echotexture. Gallbladder is adequately distended without intraluminal stones or thickening of its wall. No intrahepatic bile duct dilatation is seen. Questionable visualization of a nondilated common bile duct measuring 4 mm The right kidney measures 8.5 cm sagittal length and appears unremarkable. Nonvisualization of the pancreas Visualized portion of the proximal abdominal aorta and inferior vena cava appear unremarkable. Normal flow in the main portal vein. KUB; 01/13 A single view of the abdomen reveals generalized abdominal distention suggestive of an ileus. There is no sign of a fecal impaction or gross constipation. A rectal tube is not seen. There is evidence of previous bilateral hip surgeries. There is a scoliosis with convexity to the right. Correlation recommended. CXR; 01/16 A single view of the chest is been submitted. Again noted is abdominal distention, retrocardiac atelectasis or infiltrate with large heart, weak inspiration and congestive changes with scoliosis and possible old rib trauma. Correlation recommended. KUB; 01/16 Single view of the abdomen again reveals distended bowel mainly involving colon rather than small bowel. The cecum or sigmoid appears distended over the lower LS spine and upper sacrum. There is hand artifact in the right upper quadrant and a G-tube with some questionable material in the stomach. Free air or pneumatosis is not seen. There is no air or stool seen in the rectum. There is a dense left base. There is evidence of bilateral hip surgeries. Correlation and follow-up recommended. For more complete evaluation, CT may be of help. ASSESSMENT/PLAN: 24 year old M from [facility], with PMH cerebral palsy, herpes encephalitis, GERD, aspiration PNA, dysphagia (s/p G tube) presented to ED with hypoxia and respiratory distress. Pt was downgraded from ICU due to hypoxia and hypotension. Was placed on BiPAP with good response. Pt is currently admitted for aspiration PNA and ileus. Sepsis secondary to aspiration PNA -c/w zosyn (started 01/13), today is day 6. -ID consulted. Recommended c/w zosyn. - Pulmonology consulted. Recommended c/w abx, can try ventimask, keep NPO. -CT chest, CXR as above. -Cultures: -Sputum culture grew Pseudomonas. Ucx negative. Urine legionella/strep pneumo negative. Bcx negative thus far. -supplemental O2, maintain SaO2 >92% -aspiration precautions -COVID-19 PCR negative -Maintain MAP >65 - c/w duoneb and budesonide Hypokalemia, hypomagnesemia, improved - Repleted with liquid KCl and magnesium sulfate. - f/u electrolytes and replete as necessary Ileus -CT abd as above. -c/w bowel regimen -Repeat KUB as above - Hb 13.5-->11.5-->12.1. Will continue to monitor. Seizures - 1 episode seizure, lasting 2 minutes on 01/18/2020. 1 episode seizure 01/18. - Neuro consulted. Pending recs. - Start diazepam VT 7.5 qD PRN. -continue home dose lamotrigine, baclofen, clobazam, phenobarbital Hematuria -F/u UA -Low BUN, likely due to body habitus -F/u PT/INR, PTT Hx of herpes encephalitis -c/w acyclovir 400 BID Transaminitis, improved -continue to monitor LFT -US as above. No gallstones, no intrahepatic duct dilation. GERD -consider PPI, however, h/o hypomagnesemia FEN -No standing fluids -monitor and replete lytes -Resume tube feeds as per dietary. Ppx -DVT: Lovenox Dispo: continue to monitor on m/s Visit type - Emergency Visit Emergency Visit: Yes ED Registration Date: 01/13/20 Care time: The patient presented to the Emergency Department on the above date and was hospitalized for further evaluation of their emergent condition. - New Patient This patient is new to me today: No - Critical Care Critical Care patient: No ATTENDING PHYSICIAN STATEMENT I saw and evaluated the patient. I reviewed the resident's note and discussed the case with the resident. I agree with the resident's findings and plan as documented. SUBJECTIVE: OBJECTIVE: ASSESSMENT AND PLAN:
[2020-01-19] MEDS: ACYCLOVIR 200 MG/5 ML LIQUID GT SCH ×2 (17:32→21:46)
[2020-01-19] MEDS: BUDESONIDE 0.25 MG/2ML INH SUSP VIAL NEB SCH (20:13)
[2020-01-19] MEDS: cloBAZam 10 MG TABLET GT SCH (21:43)
--- NOTE | 2020-01-19 22:02 | CONSULT ---
Consult - text type - Consultation Consultation Note: NEUROLOGY CONSULTATION is greatly appreciated: Events reviewed, patient examined. This 24 yo man with severe cerebral palsy and epilepsy was admitted with congestions and possible pneumonia. Maintained on: Acyclovir 400 BID; Baclofen 5 BID; Clobazam 10 HS; Clonazepam 0.5 TID; Lamotrigine 200 BID; phenobarbital 45 BID; Diazepam Rectal Gel PRN PB level+19 ug% Urine WBC=51. On Zosyn. COVID - EXAM: Microcephally. Extremely short stature Full roving EOM's Probable response to visual threat Deep cough. S/P G Tube Severe, spastic tetraplegia with SPONTANEOUS CLONUS and contractures all extremities. IMP: Severe B/L cerebral dysfunction (Severe static encephalopathy) Seizure disorder (please not to be confused with near constant, spontaneous clonus due to severe spasticity). SUGGEST: Increase Phenobarbital to 60 mg elixor BID via G tube. Continue clonazepam 0.5 TID, Clobazam 10 qHS and lamotrigine 200 mg Q12 hrs Doubt efficacy of baclofen- would D/C and observe. Reevaluate the continued need for acyclovir Continue antibiotics. Thank you very much, Juan Miguel Jo MD
[2020-01-20] MEDS ORDERED: PIPERACILLIN/TAZOBACTAM 3.375 GM VIAL IVPB ONE ×4 (02:16→23:44)
[2020-01-20] MEDS ORDERED: DEXTROSE 5%-WATER - 50 ML IVPB ONE ×4 (02:17→23:44)
[2020-01-20] MEDS: PIPERACILLIN/TAZOB 3.375 GM 3.375 GM in DEXTROSE 5%-WATER - 50 ML IVPB SCH ×3 (02:38→17:42)
[2020-01-20] MEDS ORDERED: INSULIN (NOVOLOG) ASPART 100 UNITS/ML 10ML VIAL ONE (06:37)
[2020-01-20] MEDS ORDERED: INSULIN (LEVEMIR) 100 UNITS/ML UNITS SQ ONE (06:37)
[2020-01-20] MEDS ORDERED: PT OWN MED DRAWER 7, Y5N ONE ×2 (06:38→22:03)
[2020-01-20 08:15] LABS: BASO % 0.4 % (0-2.0); EOS % 2.1 % (0-4.5); HEMATOCRIT 34.8 % (35.4-49); HEMOGLOBIN 11.8 GM/dL (11.7-16.9); LYMPH % 15.2 % (8-40); MCH 33.9 pg (25.7-33.7); MCHC 33.9 g/dl (32.0-35.9); MEAN PLT VOLUME 9.6 fl (7.5-11.1); MONO % 9.8 % (3.8-10.2); NEUT % 72.5 % (42.8-82.8); PLATELET COUNT 204 K/MM3 (134-434); RBC 3.47 M/mm3 (4.00-5.60); RDW 15.4 % (11.9-15.9); WHITE BLOOD COUNT 7.7 K/mm3 (4.0-10.0)
[2020-01-20 08:24] LABS: CALCIUM 8.6 mg/dL (8.5-10.1); CREATININE 0.7 mg/dL (0.55-1.3); MAGNESIUM 1.6 mg/dL (1.8-2.4); POTASSIUM 3.6 mmol/L (3.5-5.1); TOT PROT 7.3 g/dl (6.4-8.2)
[2020-01-20 08:25] LABS: BILIRUBIN,TOTAL 0.6 mg/dL (0.2-1)
[2020-01-20] MEDS ORDERED: diazePAM RECTAL GEL 10 MG KIT (PRE-CALIBRATED) RC PRN (08:58)
--- NOTE | 2020-01-20 09:07 | PN ---
Progress Note (short form) - Note Progress Note: ICU was consulted for this case 24 yo male with pmh of MH of Cerebral Palsy, epilespsy, herpes encephalitis, GERD, Aspiration pneumonia, Dysphagia s/p G-tube was called by ICU to come and consult. Pt had rapid response called approximately 15 minutes prior to phone call. Pt was desaturating at 70%. When ICU team arrived pt was saturating well at 98% on 12/6 Bipap. Pt on lung exam had decreased lung sounds on left side and CTA on right side possibly post seizure. Primary care team said they can handle the situation. Case discussed with Dr. Price. ICU will be happy to consult again if need be. Physical Exam General: awake, alert, and nonverbal on bipap Head: on bipap Lungs: CTA on right decreased lung sounds on left Ext: four ext contracted.
[2020-01-20] MEDS ORDERED: ACETAMINOPHEN 1000 MG/100 ML VIAL (NON FORMULARY) IVPB PRN (09:09)
[2020-01-20] MEDS: BUDESONIDE 0.25 MG/2ML INH SUSP VIAL NEB SCH (09:15)
--- NOTE | 2020-01-20 09:28 | RAPID ---
Physical Examination Vital Signs: Vital Signs Temperature 98.1 F 01/20/20 06:00 Pulse Rate 72 01/20/20 06:00 Respiratory Rate 26 H 01/20/20 06:00 Blood Pressure 102/38 L 01/20/20 06:00 O2 Sat by Pulse Oximetry (%) 96 01/20/20 06:00 Labs: CBC, BMP 01/20/20 06:59 01/20/20 06:59 Rapid Response - Rapid Response Assessment: Rapid response called overhead. On-call team responded immediately. Pt found to be desaturating to 70% with ventimask, febrile at 102F (axillary), tachypneic and tachycardic. Pt was diaphoretic and had scattered rhonchi b/l. Oral suctioning done, pt placed on BiPAP at Fio2 100%, CXR ordered, and ABG obtained. Tube feeds were turned off. Pt subsequently had SpO2 of 94% and was less tachypneic. Suspicion for aspiration. Vitals: 112/42 HR 138 RR 45 SpO2 94% Rectal temp 101.7F Plan: - f/u CXR, ABG, cultures - start Ofirmev 1000mg q6h PRN - start Flagyl - supplemental O2, maintain SpO2 >90% - Keep NPO
[2020-01-20 10:14] LABS: ARTERIAL BLD GAS O2 SATURATION 99.5 mmHg (95-98); ARTERIAL BLOOD GAS BASE EXCESS 1.3 mmol/L (-2-2); ARTERIAL BLOOD GAS PO2 226.2 mmHg (80-100); ARTERIAL BLOOD GAS pH 7.412 (7.350-7.450)
[2020-01-20 10:15] LABS: ALLENS TEST POSITIVE
[2020-01-20 10:16] LABS: VENT MODE EPAP
[2020-01-20 10:17] LABS: VENT RATE 14
[2020-01-20] MEDS: PHENobarbital 20 MG/5 ML UNIT-DOSE CUP GT SCH ×2 (10:59→22:19)
[2020-01-20] MEDS: BACLOFEN 10 MG TABLET (FP) GT SCH (10:59)
[2020-01-20] MEDS: lamoTRIgine 100 MG TABLET PO SCH ×2 (11:00→22:22)
[2020-01-20] MEDS: DOCUSATE NA 100 MG/10 ML UNIT-DOSE CUPS GT SCH ×2 (11:01→22:22)
[2020-01-20] MEDS: ENOXAPARIN NA (PORCINE) 40 MG/0.4 ML DISP.SYRIN SQ SCH (11:02)
[2020-01-20] MEDS: ACYCLOVIR 200 MG/5 ML LIQUID GT SCH ×2 (11:03→22:22)
--- NOTE | 2020-01-20 12:04 | PN ---
Progress Note (short form) - Note Progress Note: PULMONARY RAPID RESPONSE CALLED EARLIER DUE TO DESATURATION/FEVER/TACHYPNEA/TACHYCARDIA APPEARS STABLE ON BIPAP(SWITCHED FROM V/M) TMAX 101 RR 18 BP 112/43 HR 100 MICROCEPHALIC/ SCATTERED MINIMAL RHONCHI S1S2 MILDLY TACHY SOFT CONTRACTED CXR: DISTENDED LOOPS OF LARGE BOWEL/NO GROSS INFILTRATIVE CHANGES NOTED LABS/ABG NOTED A/P Acute on Chronic Hypoxic Respiratory Failure Pneumonia likely Aspiration Colonic distention Cerebral Palsy Seizure Disorder Mental Retardation Functional Quadriplegia - continue antibiotics - O2 to keep SpO2 >90% - continue positive airway pressure - aspiration precautions - NPO - DVT prophylaxis Kwame IBARRA MD
--- NOTE | 2020-01-20 14:34 | PN ---
Physical Exam: SUBJECTIVE: Patient seen and examined. Overnight, switched to ventimask. Today, rapid response called. Possible aspiration. OBJECTIVE: Vital Signs Period Temp Pulse Resp BP Sys/Linares Pulse Ox Last 24 Hr 98.1 F-101.7 F 68-133 22-28 85-112/38-50 84-98 GENERAL: Somnolent, but arousable. No acute distress. HEENT: Microcephaly. Atraumatic. PERRL, dry mucous membranes. LUNGS: scattered rhonchi b/l HEART: RRR, normal S1 and S2 without murmur ABDOMEN: Distended, nontender to palpation, G-tube in place. EXTREMITIES: warm, well-perfused, contracted. No edema SKIN: Warm, diaphoretic. : Blood visualized in esqueda catheter. CBC, BMP 01/20/20 06:59 01/20/20 06:59 Active Medications Acetaminophen (Ofirmev Injection -) 750 mg IVPB Q6H PRN PRN Reason: FEVER Stop: 01/21/20 09:09 Acyclovir (Zovirax Oral Suspension -) 400 mg GT BID [facility] Last Admin: 01/20/20 11:03 Dose: 400 mg Documented by: Albuterol/Ipratropium (Duoneb -) 1 amp NEB QID PRN PRN Reason: WHEEZING Last Admin: 01/17/20 21:18 Dose: 1 amp Documented by: Bisacodyl (Dulcolax Suppository -) 10 mg RC PRN PRN PRN Reason: CONSTIPATION Budesonide (Pulmicort 0.25 Mg Nebulizer -) 1 amp NEB RBID [facility] Last Admin: 01/20/20 09:15 Dose: 1 amp Documented by: Clobazam (Onfi -) 10 mg GT HS [facility] Last Admin: 01/19/20 21:43 Dose: 10 mg Documented by: Clonazepam (Klonopin -) 0.5 mg GT TID [facility] Diazepam (Diastat Rectal Gel 7.5 Mg) 7.5 mg RC DAILY PRN PRN Reason: AGITATION Docusate Sodium (Colace Liquid -) 100 mg GT BID [facility] Last Admin: 01/20/20 11:01 Dose: 100 mg Documented by: Enoxaparin Sodium (Lovenox -) 40 mg SQ DAILY [facility] Last Admin: 01/20/20 11:02 Dose: 40 mg Documented by: Piperacillin Sod/Tazobactam (Sod 3.375 gm/ Dextrose) 50 mls @ 100 mls/hr IVPB Q8H-IV JORGE; Protocol Last Admin: 01/20/20 11:02 Dose: 100 mls/hr Documented by: Metronidazole (Flagyl 500mg Premixed Ivpb -) 500 mg in 100 mls @ 100 mls/hr IVPB Q8H-IV [facility]OR[facility] Last Admin: 01/20/20 11:01 Dose: Not Given Documented by: Lamotrigine (Lamictal -) 200 mg PO BID [facility] Last Admin: 01/20/20 11:00 Dose: 200 mg Documented by: Phenobarbital (Phenobarbital Liquid -) 60 mg GT BID [facility] CXR; 01/12 Single view of the chest has been submitted. The prior study of 11/28/2019 at 1518 hours there is increased abdominal distention and possible pneumoperitoneum. The left base is quite dense. The patient is rotated to the left. There is a weak inspiration with prominent mediastinal and congestive changes CT A/P; 01/12 Large volume stool impaction up to the level of the sigmoid colon with assoc iated gaseous distention of large bowel proximally. This finding is similar to prior study with slightly greater distention at the level of the sigmoid. If further imaging evaluation of bowel is clinically desired, recommend enteric contrast administration on follow-up. No evidence of pneumoperitoneum. Refer to concurrent chest CT report for complete findings above the diaphragm, including discussion of suspected aspiration pneumonia. CT chest; 01/12 Low attenuation material identified within the bilateral lower lobe bronchi and left upper lobe bronchi and associated large consolidations affecting the bilateral lower and left upper hemithoraces are highly suspicious for aspiration pneumonia. Cardiomegaly with prominent pulmonary vascularity may represent sequela of underlying congestive heart disease. Recommend clinical correlation. Refer to concurrent CT abdomen and pelvis report for complete findings below the diaphragm. CXR; 01/13 Single view the chest reveals a weak inspiratory effort with abdominal distention suggestive of either an obstruction or ileus, chin artifact obscuring discrete detail of the left hemithorax, rotation to the left and some infiltrative changes at the right base. Correlation recommended. Please see CT report from 01/13/2020 at 1432 hours. US limited; 01/13 Limited exam. The liver is within normal limits in size and echotexture. Gallbladder is adequately distended without intraluminal stones or thickening of its wall. No intrahepatic bile duct dilatation is seen. Questionable visualization of a nondilated common bile duct measuring 4 mm The right kidney measures 8.5 cm sagittal length and appears unremarkable. Nonvisualization of the pancreas Visualized portion of the proximal abdominal aorta and inferior vena cava appear unremarkable. Normal flow in the main portal vein. KUB; 01/13 A single view of the abdomen reveals generalized abdominal distention suggestive of an ileus. There is no sign of a fecal impaction or gross constipation. A rectal tube is not seen. There is evidence of previous bilateral hip surgeries. There is a scoliosis with convexity to the right. Correlation recommended. CXR; 01/16 A single view of the chest is been submitted. Again noted is abdominal distention, retrocardiac atelectasis or infiltrate with large heart, weak inspiration and congestive changes with scoliosis and possible old rib trauma. Correlation recommended. KUB; 01/16 Single view of the abdomen again reveals distended bowel mainly involving colon rather than small bowel. The cecum or sigmoid appears distended over the lower LS spine and upper sacrum. There is hand artifact in the right upper quadrant and a G-tube with some questionable material in the stomach. Free air or pneumatosis is not seen. There is no air or stool seen in the rectum. There is a dense left base. There is evidence of bilateral hip surgeries. Correlation and follow-up recommended. For more complete evaluation, CT may be of help. CXR; 01/19 Single view of the chest has been submitted. There is a weak inspiration with resultant prominent mediastinum, central crowding and some questionable atelectasis or infiltrate at the left base. The angles are sharp and the soft tissues are intact. There may be some old rib fractures. There is generalized abdominal distention. Since 01/17/2020, increased lung markings have diminished. The retrocardiac density has diminished as well. The abdominal distention persists. Again noted is a weak inspiration. ASSESSMENT/PLAN: 24 year old M from [facility], with PMH cerebral palsy, herpes encephalitis, GERD, aspiration PNA, dysphagia (s/p G tube) presented to ED with hypoxia and respiratory distress. Pt was in ICU due to hypoxia and hypotension and downgraded to med-surg. Was placed on BiPAP with good response. Pt is currently admitted for aspiration PNA and ileus. Sepsis secondary to aspiration PNA - CT chest, CXR as above. -c/w zosyn (started 01/13), today is day 7. C/w Flagyl 500 q8H (started 01/19), today is day 1 -ID consulted. Recommended c/w zosyn. Repeat bcx. - Pulmonology consulted. Recommended c/w abx, positive airway pressure. - c/w budesonide, albuterol/ipratropium -Cultures: -01/19 Bcx pending. -01/15 Sputum culture grew Pseudomonas. Ucx negative. Urine legionella/strep pneumo negative. Bcx negative thus far. -supplemental O2, maintain SaO2 >92% -aspiration precautions -COVID-19 PCR negative -Maintain MAP >65 - Rapid response on 01/19. Desaturated to 70%. Suspicion for aspiration. - keep NPO - f/u repeat CXR, ABG - c/w ofirmev 1g q6H PRN for fevers. Hypokalemia, hypomagnesemia, improved - Repleted with liquid KCl and magnesium sulfate. - f/u electrolytes and replete as necessary Ileus, stool impaction -CT abd as above. -c/w bowel regimen -Repeat KUB as above Seizures - Neuro consulted. Recommended increase phenobarbital 60mg BID GT. C/w clonazepam 0.5 TID, clobazam 10mg qHS, lamotrigine 200mg q12H. D/c baclofen and observe. - c/w diazepam FL 7.5 qD PRN. Hematuria - d/c esqueda - UA 3+ blood - continue to monitor Hx of herpes encephalitis -c/w acyclovir 400 BID Transaminitis, improved -continue to monitor LFT -US as above. No gallstones, no intrahepatic duct dilation. GERD -consider PPI, however, h/o hypomagnesemia FEN - No standing fluids - monitor and replete lytes - NPO Ppx -DVT: Lovenox Dispo: continue to monitor on m/s Visit type - Emergency Visit Emergency Visit: Yes ED Registration Date: 01/13/20 Care time: The patient presented to the Emergency Department on the above date and was hospitalized for further evaluation of their emergent condition. - New Patient This patient is new to me today: No - Critical Care Critical Care patient: No ATTENDING PHYSICIAN STATEMENT I saw and evaluated the patient. I reviewed the resident's note and discussed the case with the resident. I agree with the resident's findings and plan as documented. SUBJECTIVE: OBJECTIVE: ASSESSMENT AND PLAN:
--- NOTE | 2020-01-20 15:22 | PN ---
Progress Note (short form) - Note Progress Note: remains on bipap episode of desaturation this am, responded to suctioning- ?aspirationa Vital Signs Period Temp Pulse Resp BP Sys/Linares Pulse Ox Last 24 Hr 98.1 F-101.7 F 68-133 26-28 85-131/38-65 84-98 cor-rrr lungs decreased bs at bases abd soft,nt +GT ext contracted CBC, BMP 01/20/20 06:59 01/20/20 06:59 Microbiology 01/16/20 23:44 Sputum - Oropharynx Suctioned Sputum Gram Stain - Final 01/16/20 23:44 Sputum - Oropharynx Suctioned Sputum Sputum Culture - Final Pseudomonas Aeruginosa 01/13/20 12:24 Blood - Peripheral Venous Blood Culture - Final NO GROWTH AFTER 5 DAYS INCUBATION 01/13/20 12:24 Blood - Peripheral Venous Blood Culture - Final NO GROWTH AFTER 5 DAYS INCUBATION 01/14/20 01:15 Urine - Urine Clean Catch Urine Culture - Final NO GROWTH OBTAINED 01/14/20 01:15 Urine For Antigen Detection Legionella Antigen - Final 01/14/20 01:15 Urine For Antigen Detection Streptococcus pneumoniae Antigen (M - Final cxray looks improved a/p fever- reculture aspiration pneumonia day #6 zosyn stool impaction- improved abnormal LFTS-resolving repeat blood cultures Problem List - Problems (1) Hypoxia Code(s): R09.02 - HYPOXEMIA (2) Pneumonia Code(s): J18.9 - PNEUMONIA, UNSPECIFIED ORGANISM (3) Fecal impaction Code(s): K56.41 - FECAL IMPACTION (4) Abnormal LFTs Code(s): R94.5 - ABNORMAL RESULTS OF LIVER FUNCTION STUDIES (5) Seizure Code(s): R56.9 - UNSPECIFIED CONVULSIONS (6) History of encephalitis Code(s): Z86.61 - PERSONAL HISTORY OF INFECTIONS OF THE CENTRAL NERVOUS SYSTEM
--- NOTE | 2020-01-20 17:04 | PN ---
Teaching Attending Note Name of Resident: Evie Wolfe ATTENDING PHYSICIAN STATEMENT I saw and evaluated the patient. I reviewed the resident's note and discussed the case with the resident. I agree with the resident's findings and plan as documented. SUBJECTIVE: Patient is comfortable now s/p RR for having tachycardia with tachypnea. Was fou nd to have rectal temp of 101.6 OBJECTIVE: Vital Signs Temperature 98.9 F 01/20/20 15:07 Pulse Rate 60 01/20/20 15:39 Respiratory Rate 26 H 01/20/20 15:07 Blood Pressure 131/65 01/20/20 15:07 O2 Sat by Pulse Oximetry (%) 99 01/20/20 15:39 PE; per resident's note CBCD WBC 7.7 K/mm3 (4.0-10.0) 01/20/20 06:59 RBC 3.47 M/mm3 (4.00-5.60) L 01/20/20 06:59 Hgb 11.8 GM/dL (11.7-16.9) 01/20/20 06:59 Hct 34.8 % (35.4-49) L 01/20/20 06:59 MCV 100.0 fl (80-96) H 01/20/20 06:59 MCHC 33.9 g/dl (32.0-35.9) 01/20/20 06:59 RDW 15.4 % (11.9-15.9) 01/20/20 06:59 Plt Count 204 K/MM3 (134-434) 01/20/20 06:59 MPV 9.6 fl (7.5-11.1) 01/20/20 06:59 CMP Sodium 142 mmol/L (136-145) 01/20/20 06:59 Potassium 3.6 mmol/L (3.5-5.1) 01/20/20 06:59 Chloride 102 mmol/L (98-107) 01/20/20 06:59 Carbon Dioxide 29 mmol/L (21-32) 01/20/20 06:59 Anion Gap 10 MMOL/L (8-16) 01/20/20 06:59 BUN 6.0 mg/dL (7-18) L 01/20/20 06:59 Creatinine 0.7 mg/dL (0.55-1.3) 01/20/20 06:59 Random Glucose 89 mg/dL (74-106) 01/20/20 06:59 Calcium 8.6 mg/dL (8.5-10.1) 01/20/20 06:59 Total Bilirubin 0.6 mg/dL (0.2-1) 01/20/20 06:59 AST 22 U/L (15-37) 01/20/20 06:59 ALT 39 U/L (13-61) 01/20/20 06:59 Alkaline Phosphatase 252 U/L (45-117) H 01/20/20 06:59 Total Protein 7.3 g/dl (6.4-8.2) 01/20/20 06:59 Albumin 3.0 g/dl (3.4-5.0) L 01/20/20 06:59 CARDIAC ENZYMES Troponin I < 0.02 ng/ml (0.00-0.05) 01/13/20 12:29 Current Medications Generic Name Dose Route Start Last Admin Trade Name Freq PRN Reason Stop Dose Admin Acetaminophen 750 mg 01/20/20 09:09 Ofirmev Injection - IVPB 01/21/20 09:09 Q6H PRN FEVER Acyclovir 400 mg 01/16/20 22:00 01/20/20 11:03 Zovirax Oral Suspension - GT 400 mg BID JORGE Administration Albuterol/Ipratropium 1 amp 01/16/20 18:33 01/17/20 21:18 Duoneb - NEB 1 amp QID PRN Administration WHEEZING Bisacodyl 10 mg 01/16/20 18:33 Dulcolax Suppository - RC PRN PRN CONSTIPATION Budesonide 1 amp 01/16/20 20:00 01/20/20 09:15 Pulmicort 0.25 Mg Nebulizer - NEB 1 amp RBID JORGE Administration Clobazam 10 mg 01/16/20 22:00 01/19/20 21:43 Onfi - GT 10 mg HS JORGE Administration Clonazepam 0.5 mg 01/20/20 22:00 Klonopin - GT TID JORGE Diazepam 7.5 mg 01/20/20 09:03 Diastat Rectal Gel 7.5 Mg RC DAILY PRN AGITATION Docusate Sodium 100 mg 01/16/20 22:00 01/20/20 11:01 Colace Liquid - GT 100 mg BID JORGE Administration Enoxaparin Sodium 40 mg 01/17/20 10:00 01/20/20 11:02 Lovenox - SQ 40 mg DAILY JORGE Administration Piperacillin Sod/Tazobactam 50 mls @ 100 mls/hr 01/17/20 02:00 01/20/20 11:02 Sod 3.375 gm/ Dextrose IVPB 100 mls/hr Q8H-IV JORGE Administration Protocol Metronidazole 500 mg in 100 mls @ 100 mls/hr 01/20/20 09:15 01/20/20 11:01 Flagyl 500mg Premixed Ivpb - IVPB Not Given Q8H-IV JORGE Lamotrigine 200 mg 01/16/20 22:00 01/20/20 11:00 Lamictal - PO 200 mg BID JORGE Administration Phenobarbital 60 mg 01/20/20 22:00 Phenobarbital Liquid - GT BID JORGE Home Medications Medication Instructions Recorded Acyclovir 400 mg GT BID 04/25/17 Baclofen 10 mg GT BID 04/25/17 Clobazam [Onfi -] 10 mg GT HS 04/25/17 Clonazepam 0.5 mg GT TID 04/25/17 Lamotrigine 200 mg GT BID 04/25/17 Multivitamin [Poly-Vitamin] 1 each GT HS 04/25/17 Phenobarbital 45 mg GT BID 04/25/17 Diazepam Rectal Gel [Diastat 7.5 mg MA PRN PRN 05/23/18 Rectal Gel -] Protein Supplement [Promod] 1,190 ml GT DAILY 05/23/18 Budesonide [Pulmicort 0.25 mg 1 neb IH BID 02/05/19 Nebulizer -] Fluticasone Prop 0.05% Nasal 2 spray NS AM 02/05/19 [Flonase -] Magnesium Hydrox 2400MG/30Ml [Milk 20 ml GT BID 02/05/19 of Magnesia -] Albuterol 2.5/Ipratropium 0.5 1 neb IH QID PRN #30 neb 02/14/19 [Duoneb -] Sodium Chloride/Aloe Vera [Moro 22 ml NS BID 06/01/19 Saline Nasal Gel [place]] Bisacodyl 10 mg RC PRN PRN 11/22/19 Diphenhydramine [Benadryl 12.5 25 mg PO Q6H PRN 11/22/19 MG/5 ML Oral Solution -] Famotidine 10 mg PO BID 11/22/19 Lactobacillus Acidophilus 1 each PO HS 11/22/19 [Acidophilus] Simethicone Liquid [Mylicon Liquid 40 mg PO PRN PRN 11/22/19 -] Docusate Liquid [Colace Liquid -] 100 mg GT BID ud 11/29/19 US revealed no gallstones; no intrahepatic duct dilation ASSESSMENT AND PLAN: This patient is a 24yom with a PMHx of Cerebral Palsy, epilespsy, herpes encephalitis, GERD, Aspiration pneumonia, Dysphagia s/p G-tube, presents to ED from [facility] facility with hypoxia and respiratory distress found to be saturating in the high 70's low 80's patient was found to have aspiration PNA with moderate stool impaction. # sepsis due to aspiration PNA on zosyn continue on Bipap, will add flagyl to zosyn IV, NPO for now, since re-aspirated , continue to elevate HOB to 45 #Ileus bowel regimen continue to monitor , repeat abdominal xray in am #Transaminitis monitor :improved #hx of Seizures s/p seizure: continue home meds, ordered diastat prn 7.5mg prn DVT Px: lovenox hold Tube feed Promote 1.5mg Re-aspiration Pna, added flagyl to zosyn , id on the case, cbc repeat in am IVF
[2020-01-20] MEDS: clonazePAM 0.5 MG TABLET GT SCH (22:22)
[2020-01-20] MEDS: cloBAZam 10 MG TABLET GT SCH (22:22)
[2020-01-21] MEDS: PIPERACILLIN/TAZOB 3.375 GM 3.375 GM in DEXTROSE 5%-WATER - 50 ML IVPB SCH ×3 (02:41→18:18)
[2020-01-21] MEDS: clonazePAM 0.5 MG TABLET GT SCH ×3 (05:50→22:06)
[2020-01-21] MEDS: BUDESONIDE 0.25 MG/2ML INH SUSP VIAL NEB SCH ×2 (07:59→19:50)
--- NOTE | 2020-01-21 08:58 | PN ---
Progress Note, Physician Chief Complaint: Patient remained at baseline History of Present Illness: 24yom with a PMHx of Cerebral Palsy, epilespsy, herpes encephalitis, GERD, Aspiration pneumonia, Dysphagia s/p G-tube, presents to ED from [facility] with hypoxia and respiratory distress found to be saturating in the high 70's low 80's patient was found to have aspiration PNA with moderate stool impaction. - Current Medication List Current Medications: Active Medications Acetaminophen (Ofirmev Injection -) 750 mg IVPB Q6H PRN PRN Reason: FEVER Stop: 01/21/20 09:09 Acyclovir (Zovirax Oral Suspension -) 400 mg GT BID [facility] Last Admin: 01/20/20 22:22 Dose: 400 mg Documented by: Albuterol/Ipratropium (Duoneb -) 1 amp NEB QID PRN PRN Reason: WHEEZING Last Admin: 01/17/20 21:18 Dose: 1 amp Documented by: Bisacodyl (Dulcolax Suppository -) 10 mg RC PRN PRN PRN Reason: CONSTIPATION Budesonide (Pulmicort 0.25 Mg Nebulizer -) 1 amp NEB RBID [facility] Last Admin: 01/21/20 07:59 Dose: Not Given Documented by: Clobazam (Onfi -) 10 mg GT HS [facility] Last Admin: 01/20/20 22:22 Dose: 10 mg Documented by: Clonazepam (Klonopin -) 0.5 mg GT TID [facility] Last Admin: 01/21/20 05:50 Dose: 0.5 mg Documented by: Diazepam (Diastat Rectal Gel 7.5 Mg) 7.5 mg RC DAILY PRN PRN Reason: AGITATION Docusate Sodium (Colace Liquid -) 100 mg GT BID [facility] Last Admin: 01/20/20 22:22 Dose: 100 mg Documented by: Enoxaparin Sodium (Lovenox -) 40 mg SQ DAILY [facility] Last Admin: 01/20/20 11:02 Dose: 40 mg Documented by: Piperacillin Sod/Tazobactam (Sod 3.375 gm/ Dextrose) 50 mls @ 100 mls/hr IVPB Q8H-IV JORGE; Protocol Last Admin: 01/21/20 02:41 Dose: 100 mls/hr Documented by: Metronidazole (Flagyl 500mg Premixed Ivpb -) 500 mg in 100 mls @ 100 mls/hr IVPB Q8H-IV [facility] Last Admin: 01/21/20 01:06 Dose: 100 mls/hr Documented by: Lamotrigine (Lamictal -) 200 mg PO BID [facility] Last Admin: 01/20/20 22:22 Dose: 200 mg Documented by: Phenobarbital (Phenobarbital Liquid -) 60 mg GT BID [facility] Last Admin: 01/20/20 22:19 Dose: 60 mg Documented by: - Objective Vital Signs: Vital Signs Temperature 98.8 F 01/21/20 05:33 Pulse Rate 50 L 01/21/20 05:33 Respiratory Rate 27 H 01/21/20 05:33 Blood Pressure 95/49 L 01/21/20 05:33 O2 Sat by Pulse Oximetry (%) 99 01/21/20 07:56 General: Young man nonverbal not in distress HEENT mucous membranes moist, no anemia, no jaundice, PERRLA, no nystagmus Neck: No JVD, supple, no bruit, thyroid palpably normal, normal carotid pulsations. Chest: bilateral basal rales. CVS: S1-S2 regular no murmur/gallop/rub Abdomen: It is post PEG tube nondistended, soft, bowel sounds present. Extremities: Contracture ER RN: Alert nonverbal Labs: CBC, BMP 01/20/20 06:59 01/20/20 06:59 INR, PTT INR 1.17 (0.83-1.09) H 01/19/20 09:23 Problem List - Problems (1) Aspiration pneumonia Assessment/Plan: Continue Zosyn and Flagyl sputum grew Pseudomonas follow-up ID recommendation Problems reviewed: Yes Code(s): J69.0 - PNEUMONITIS DUE TO INHALATION OF FOOD AND VOMIT (2) Sepsis with acute hypoxic respiratory failure Assessment/Plan: Due to aspiration pneumonia continue supplemental oxygen and IV antibiotic as recommended by ID Problems reviewed: Yes Code(s): A41.9 - SEPSIS, UNSPECIFIED ORGANISM; R65.20 - SEVERE SEPSIS WITHOUT SEPTIC SHOCK; J96.01 - ACUTE RESPIRATORY FAILURE WITH HYPOXIA (3) Fecal impaction Assessment/Plan: Status post disimpacted Problems reviewed: Yes Code(s): K56.41 - FECAL IMPACTION (4) Asthma Assessment/Plan: Significant bronchodilator and steroids Problems reviewed: Yes Code(s): J45.909 - UNSPECIFIED ASTHMA, UNCOMPLICATED (5) Epilepsy Assessment/Plan: Cerebral palsy continue current antiepileptic Problems reviewed: Yes Code(s): G40.909 - EPILEPSY, UNSP, NOT INTRACTABLE, WITHOUT STATUS EPILEPTICUS (6) PEG (percutaneous endoscopic gastrostomy) status Assessment/Plan: Continue PEG feeding Problems reviewed: Yes Code(s): Z93.1 - GASTROSTOMY STATUS
[2020-01-21 09:26] LABS: BASO % 0.5 % (0-2.0); EOS % 2.4 % (0-4.5); HEMATOCRIT 36.7 % (35.4-49); HEMOGLOBIN 12.5 GM/dL (11.7-16.9); LYMPH % 24.3 % (8-40); MCHC 34.1 g/dl (32.0-35.9); MEAN CELL VOLUME 102.7 fl (80-96); MEAN PLT VOLUME 9.8 fl (7.5-11.1); MONO % 11.3 % (3.8-10.2); NEUT % 61.5 % (42.8-82.8); PLATELET COUNT 103 K/MM3 (134-434); RBC 3.57 M/mm3 (4.00-5.60); RDW 15.3 % (11.9-15.9); WHITE BLOOD COUNT 6.1 K/mm3 (4.0-10.0)
[2020-01-21] MEDS ORDERED: PT OWN MED DRAWER 7, Y5N ONE (09:48)
[2020-01-21] MEDS ORDERED: DEXTROSE 5%-WATER - 50 ML IVPB ONE ×2 (09:49→17:34)
[2020-01-21] MEDS ORDERED: PIPERACILLIN/TAZOBACTAM 3.375 GM VIAL IVPB ONE ×2 (09:49→17:33)
[2020-01-21] MEDS: ENOXAPARIN NA (PORCINE) 40 MG/0.4 ML DISP.SYRIN SQ SCH (10:20)
[2020-01-21] MEDS: lamoTRIgine 100 MG TABLET PO SCH ×2 (10:20→22:06)
[2020-01-21] MEDS: PHENobarbital 20 MG/5 ML UNIT-DOSE CUP GT SCH ×2 (10:20→22:05)
[2020-01-21] MEDS: ACYCLOVIR 200 MG/5 ML LIQUID GT SCH ×2 (10:21→22:06)
[2020-01-21 10:41] LABS: ALBUMIN 3.3 g/dl (3.4-5.0); BILIRUBIN,TOTAL 0.4 mg/dL (0.2-1); BLOOD UREA NITROGEN 7.1 mg/dL (7-18); CREATININE 0.5 mg/dL (0.55-1.3); MAGNESIUM 1.6 mg/dL (1.8-2.4); PHOSPHOROUS 3.3 mg/dL (2.5-4.9); POTASSIUM 3.6 mmol/L (3.5-5.1); TOT PROT 7.5 g/dl (6.4-8.2)
[2020-01-21 10:50] LABS: CALCIUM 8.1 mg/dL (8.5-10.1)
[2020-01-21] MEDS: DOCUSATE NA 100 MG/10 ML UNIT-DOSE CUPS GT SCH ×2 (14:27→22:06)
--- NOTE | 2020-01-21 14:37 | PN ---
Progress Note (short form) - Note Progress Note: NAD on 50% VM O2. Nonverbal. No acute events overnight. Intake & Output 01/18/20 01/19/20 01/20/20 01/21/20 23:59 23:59 23:59 23:59 Intake Total 50 0 50 Output Total 1050 700 200 Balance -1000 -700 -150 Last Vital Signs Temp Pulse Resp BP Pulse Ox 99.0 F 74 33 H 111/52 L 95 01/21/20 09:52 01/21/20 09:52 01/21/20 09:52 01/21/20 09:52 01/21/20 09:52 Active Medications Acyclovir (Zovirax Oral Suspension -) 400 mg GT BID [facility] Last Admin: 01/21/20 10:21 Dose: 400 mg Documented by: Albuterol/Ipratropium (Duoneb -) 1 amp NEB QID PRN PRN Reason: WHEEZING Last Admin: 01/17/20 21:18 Dose: 1 amp Documented by: Bisacodyl (Dulcolax Suppository -) 10 mg RC PRN PRN PRN Reason: CONSTIPATION Budesonide (Pulmicort 0.25 Mg Nebulizer -) 1 amp NEB RBID [facility] Last Admin: 01/21/20 07:59 Dose: Not Given Documented by: Clobazam (Onfi -) 10 mg GT HS [facility] Last Admin: 01/20/20 22:22 Dose: 10 mg Documented by: Clonazepam (Klonopin -) 0.5 mg GT TID [facility] Last Admin: 01/21/20 14:27 Dose: 0.5 mg Documented by: Diazepam (Diastat Rectal Gel 7.5 Mg) 7.5 mg RC DAILY PRN PRN Reason: AGITATION Docusate Sodium (Colace Liquid -) 100 mg GT BID [facility] Last Admin: 01/21/20 14:27 Dose: 100 mg Documented by: Enoxaparin Sodium (Lovenox -) 40 mg SQ DAILY [facility] Last Admin: 01/21/20 10:20 Dose: 40 mg Documented by: Piperacillin Sod/Tazobactam (Sod 3.375 gm/ Dextrose) 50 mls @ 100 mls/hr IVPB Q8H-IV JORGE; Protocol Last Admin: 01/21/20 10:21 Dose: 100 mls/hr Documented by: Metronidazole (Flagyl 500mg Premixed Ivpb -) 500 mg in 100 mls @ 100 mls/hr IVPB Q8H-IV [facility]OR[facility] Last Admin: 01/21/20 10:21 Dose: 100 mls/hr Documented by: Lamotrigine (Lamictal -) 200 mg PO BID [facility] Last Admin: 01/21/20 10:20 Dose: 200 mg Documented by: Phenobarbital (Phenobarbital Liquid -) 60 mg GT BID [facility] Last Admin: 01/21/20 10:20 Dose: 60 mg Documented by: Gen: NAD on 50% VM Heart: RRR Lung: Scattered rhonchi, decreased breath sounds at the bases Abd: soft, nontender Ext: contracted Laboratory Results - last 24 hr 01/13/20 01/21/20 01/21/20 12:24 08:07 10:03 WBC 6.1 RBC 3.57 L Hgb 12.5 Hct 36.7 MCV 102.7 H MCH 35.0 H MCHC 34.1 RDW 15.3 Plt Count 103 L D MPV 9.8 Absolute Neuts (auto) 3.8 Neutrophils % 61.5 Lymphocytes % 24.3 D Monocytes % 11.3 H Eosinophils % 2.4 Basophils % 0.5 Nucleated RBC % 0 Sodium 142 Potassium 3.6 Chloride 103 Carbon Dioxide 32 Anion Gap 7 L BUN 7.1 Creatinine 0.5 L Est GFR (CKD-EPI)AfAm 177.03 Est GFR (CKD-EPI)NonAf 152.75 Random Glucose 94 Calcium 8.1 L Phosphorus 3.3 Magnesium 1.6 L Total Bilirubin 0.4 AST 20 ALT 33 Alkaline Phosphatase 236 H Total Protein 7.5 Albumin 3.3 L Lamotrigine 8.8 A/P Acute on Chronic Hypoxic Respiratory Failure Pneumonia likely Aspiration Ileus Cerebral Palsy Seizure Disorder Mental Retardation Functional Quadriplegia - continue antibiotics - O2 to keep SpO2 >95% - Wean supplemental O2 as tolerated - aspiration precautions - DVT prophylaxis Dr Price
--- NOTE | 2020-01-21 19:03 | PN ---
Progress Note, Physician History of Present Illness: NOT VERBALLY RESPONSIVE BREATHING NON LABORED ON MASK TEMP ELEVATION NOTED - Current Medication List Current Medications: Active Medications Acyclovir (Zovirax Oral Suspension -) 400 mg GT BID [facility] Last Admin: 01/21/20 10:21 Dose: 400 mg Documented by: Albuterol/Ipratropium (Duoneb -) 1 amp NEB QID PRN PRN Reason: WHEEZING Last Admin: 01/17/20 21:18 Dose: 1 amp Documented by: Bisacodyl (Dulcolax Suppository -) 10 mg RC PRN PRN PRN Reason: CONSTIPATION Budesonide (Pulmicort 0.25 Mg Nebulizer -) 1 amp NEB RBID [facility] Last Admin: 01/21/20 07:59 Dose: Not Given Documented by: Clobazam (Onfi -) 10 mg GT HS [facility] Last Admin: 01/20/20 22:22 Dose: 10 mg Documented by: Clonazepam (Klonopin -) 0.5 mg GT TID [facility] Last Admin: 01/21/20 14:27 Dose: 0.5 mg Documented by: Diazepam (Diastat Rectal Gel 7.5 Mg) 7.5 mg RC DAILY PRN PRN Reason: AGITATION Docusate Sodium (Colace Liquid -) 100 mg GT BID [facility] Last Admin: 01/21/20 14:27 Dose: 100 mg Documented by: Enoxaparin Sodium (Lovenox -) 40 mg SQ DAILY [facility] Last Admin: 01/21/20 10:20 Dose: 40 mg Documented by: Piperacillin Sod/Tazobactam (Sod 3.375 gm/ Dextrose) 50 mls @ 100 mls/hr IVPB Q8H-IV [facility]; Protocol Last Admin: 01/21/20 18:18 Dose: 100 mls/hr Documented by: Metronidazole (Flagyl 500mg Premixed Ivpb -) 500 mg in 100 mls @ 100 mls/hr IVPB Q8H-IV [facility] Last Admin: 01/21/20 18:18 Dose: 100 mls/hr Documented by: Lamotrigine (Lamictal -) 200 mg PO BID [facility] Last Admin: 01/21/20 10:20 Dose: 200 mg Documented by: Phenobarbital (Phenobarbital Liquid -) 60 mg GT BID [facility] Last Admin: 01/21/20 10:20 Dose: 60 mg Documented by: - Objective Vital Signs: Vital Signs Temperature 99.1 F 01/21/20 14:00 Pulse Rate 70 01/21/20 14:00 Respiratory Rate 25 H 01/21/20 14:00 Blood Pressure 146/84 01/21/20 14:00 O2 Sat by Pulse Oximetry (%) 99 01/21/20 16:50 Constitutional: Yes: No Distress Eyes: Yes: Conjunctiva Clear Cardiovascular: Yes: Regular Rate and Rhythm, S1, S2 Respiratory: Yes: Diminished Gastrointestinal: Yes: Normal Bowel Sounds Labs: CBC, BMP 01/21/20 08:07 01/21/20 10:03 INR, PTT INR 1.17 (0.83-1.09) H 01/19/20 09:23 Assessment/Plan R/O ASPIRATION PNEUMONIA CONTINUE KEISHA
[2020-01-21] MEDS ORDERED: BUDESONIDE 0.5 MG/2 ML INH SUSP VIAL NEB ONE (19:50)
[2020-01-21] MEDS: cloBAZam 10 MG TABLET GT SCH (22:06)
[2020-01-22] MEDS ORDERED: PIPERACILLIN/TAZOBACTAM 3.375 GM VIAL IVPB ONE ×2 (01:44→09:03)
[2020-01-22] MEDS ORDERED: DEXTROSE 5%-WATER - 50 ML IVPB ONE ×2 (01:44→09:03)
[2020-01-22] MEDS: PIPERACILLIN/TAZOB 3.375 GM 3.375 GM in DEXTROSE 5%-WATER - 50 ML IVPB SCH ×2 (01:54→10:00)
[2020-01-22] MEDS: clonazePAM 0.5 MG TABLET GT SCH ×3 (06:25→21:55)
[2020-01-22] MEDS ORDERED: PT OWN MED DRAWER 7, Y5N ONE ×3 (07:45→21:51)
[2020-01-22] MEDS: BUDESONIDE 0.25 MG/2ML INH SUSP VIAL NEB SCH ×2 (08:04→20:45)
--- NOTE | 2020-01-22 08:55 | PN ---
Teaching Attending Note Name of Resident: Sweetie Cobb ATTENDING PHYSICIAN STATEMENT I saw and evaluated the patient. I reviewed the resident's note and discussed the case with the resident. I agree with the resident's findings and plan as documented. SUBJECTIVE: OBJECTIVE: Vital Signs Temperature 97.6 F 01/22/20 06:00 Pulse Rate 77 01/22/20 06:00 Respiratory Rate 24 H 01/22/20 06:00 Blood Pressure 111/46 L 01/22/20 06:00 O2 Sat by Pulse Oximetry (%) 96 01/22/20 08:02 General: Young man nonverbal not in distress HEENT mucous membranes moist, no anemia, no jaundice, PERRLA, no nystagmus Neck: No JVD, supple, no bruit, thyroid palpably normal, normal carotid pulsations. Chest: bilateral basal rales. CVS: S1-S2 regular no murmur/gallop/rub Abdomen: It is post PEG tube nondistended, soft, bowel sounds present. Extremities: Contracture RAIL BONDER: Alert nonverbal Active Medications Active Medications Acetaminophen (Tylenol -) 650 mg NR Q6H PRN PRN Reason: Fever Or Pain Acyclovir (Zovirax Oral Suspension -) 400 mg GT BID [facility] Last Admin: 01/22/20 10:00 Dose: 400 mg Documented by: Albuterol/Ipratropium (Duoneb -) 1 amp NEB QID PRN PRN Reason: WHEEZING Last Admin: 01/17/20 21:18 Dose: 1 amp Documented by: Bethanechol Chloride (Urecholine -) 25 mg PO TID [facility] Bisacodyl (Dulcolax Suppository -) 10 mg RC PRN PRN PRN Reason: CONSTIPATION Last Admin: 01/22/20 09:59 Dose: 10 mg Documented by: Budesonide (Pulmicort 0.25 Mg Nebulizer -) 1 amp NEB RBID [facility] Last Admin: 01/22/20 08:04 Dose: 1 amp Documented by: Clobazam (Onfi -) 10 mg GT HS [facility] Last Admin: 01/21/20 22:06 Dose: 10 mg Documented by: Clonazepam (Klonopin -) 0.5 mg GT TID [facility] Last Admin: 01/22/20 13:55 Dose: 0.5 mg Documented by: Diazepam (Diastat Rectal Gel 7.5 Mg) 7.5 mg RC DAILY PRN PRN Reason: AGITATION Last Admin: 01/22/20 13:01 Dose: 7.5 mg Documented by: Docusate Sodium (Colace Liquid -) 100 mg GT BID [facility] Last Admin: 01/22/20 09:59 Dose: 100 mg Documented by: Doxazosin Mesylate (Cardura -) 4 mg GT DAILY [facility] Enoxaparin Sodium (Lovenox -) 40 mg SQ DAILY [facility] Last Admin: 01/22/20 09:59 Dose: 40 mg Documented by: Piperacillin Sod/Tazobactam (Sod 3.375 gm/ Dextrose) 50 mls @ 100 mls/hr IVPB Q8H-IV [facility]; Protocol Metronidazole (Flagyl 500mg Premixed Ivpb -) 500 mg in 100 mls @ 100 mls/hr IVPB Q8H-IV [facility] Lamotrigine (Lamictal -) 200 mg PO BID [facility] Last Admin: 01/22/20 09:59 Dose: 200 mg Documented by: Phenobarbital (Phenobarbital Liquid -) 60 mg GT BID [facility] Last Admin: 01/22/20 09:59 Dose: 60 mg Documented by: Tamsulosin HCl (Flomax -) 0.4 mg PO DAILY@0830 [facility] Last Admin: 01/22/20 15:34 Dose: Not Given Documented by: ASSESSMENT AND PLAN:24yom with a PMHx of Cerebral Palsy, epilespsy, herpes encephalitis, GERD, Aspiration pneumonia, Dysphagia s/p G-tube, presents to ED from [facility] facility with hypoxia and respiratory distress found to be saturating in the high 70's low 80's patient was found to have aspiration PNA with moderate stool impaction. Now awaiting discharge once hypoxia i mproves, developed urinary retention relieved by recommended continue Lane catheter voiding trial after 2 days Plan of care: Continue current management follow-up urology recommendations, please consult ID for duration of antibiotic Problem List - Problems (1) Aspiration pneumonia Assessment/Plan: Continue Zosyn and Flagyl sputum grew Pseudomonas follow-up ID recommendation, please discussed with ID antibiotic and will switch to Augmentin Code(s): J69.0 - PNEUMONITIS DUE TO INHALATION OF FOOD AND VOMIT (2) Sepsis with acute hypoxic respiratory failure Assessment/Plan: Due to aspiration pneumonia continue supplemental oxygen and IV antibiotic as recommended by ID Code(s): A41.9 - SEPSIS, UNSPECIFIED ORGANISM; R65.20 - SEVERE SEPSIS WITHOUT SEPTIC SHOCK; J96.01 - ACUTE RESPIRATORY FAILURE WITH HYPOXIA (3) Fecal impaction Assessment/Plan: Status post disimpacted Code(s): K56.41 - FECAL IMPACTION (4) Asthma Assessment/Plan: Significant bronchodilator and steroids Code(s): J45.909 - UNSPECIFIED ASTHMA, UNCOMPLICATED (5) Epilepsy Assessment/Plan: Cerebral palsy continue current antiepileptic Code(s): G40.909 - EPILEPSY, UNSP, NOT INTRACTABLE, WITHOUT STATUS EPILEPTICUS (6) PEG (percutaneous endoscopic gastrostomy) status Assessment/Plan: Yesterday resume PEG bleeding. Problems reviewed: Yes Code(s): Z93.1 - GASTROSTOMY STATUS
[2020-01-22] MEDS: lamoTRIgine 100 MG TABLET PO SCH ×2 (09:59→21:55)
[2020-01-22] MEDS: BISACODYL 10 MG SUPP.RECT RC PRN (09:59)
[2020-01-22] MEDS: ENOXAPARIN NA (PORCINE) 40 MG/0.4 ML DISP.SYRIN SQ SCH (09:59)
[2020-01-22] MEDS: PHENobarbital 20 MG/5 ML UNIT-DOSE CUP GT SCH ×2 (09:59→21:55)
[2020-01-22] MEDS: DOCUSATE NA 100 MG/10 ML UNIT-DOSE CUPS GT SCH ×2 (09:59→21:55)
[2020-01-22] MEDS: ACYCLOVIR 200 MG/5 ML LIQUID GT SCH ×2 (10:00→22:00)
[2020-01-22 10:02] LABS: BASO % 0.5 % (0-2.0); EOS % 2.1 % (0-4.5); HEMATOCRIT 36.3 % (35.4-49); HEMOGLOBIN 12.2 GM/dL (11.7-16.9); MCH 33.6 pg (25.7-33.7); MCHC 33.6 g/dl (32.0-35.9); MEAN CELL VOLUME 99.9 fl (80-96); MEAN PLT VOLUME 9.2 fl (7.5-11.1); MONO % 13.2 % (3.8-10.2); NEUT % 70.2 % (42.8-82.8); PLATELET COUNT 246 K/MM3 (134-434); RBC 3.64 M/mm3 (4.00-5.60); RDW 14.7 % (11.9-15.9); WHITE BLOOD COUNT 6.1 K/mm3 (4.0-10.0)
[2020-01-22 10:21] LABS: POTASSIUM 3.4 mmol/L (3.5-5.1)
[2020-01-22 10:25] LABS: BLOOD UREA NITROGEN 5.6 mg/dL (7-18); CALCIUM 8.5 mg/dL (8.5-10.1); CREATININE 0.6 mg/dL (0.55-1.3)
[2020-01-22] MEDS: diazePAM RECTAL GEL 7.5 MG KIT (PRE-CALIBRATED) RC PRN (13:01)
--- NOTE | 2020-01-22 13:13 | PN ---
Progress Note (short form) - Note Progress Note: Alternating between NIPPV overnight and 50% VM O2. Nonverbal. No acute events overnight. Intake & Output 01/19/20 01/20/20 01/21/20 01/22/20 23:59 23:59 23:59 23:59 Intake Total 0 50 0 745 Output Total 700 200 200 300 Balance -700 -150 -200 445 Last Vital Signs Temp Pulse Resp BP Pulse Ox 100.4 F H 72 29 H 106/61 99 01/22/20 10:21 01/22/20 10:21 01/22/20 10:21 01/22/20 10:21 01/22/20 10:21 Active Medications Acyclovir (Zovirax Oral Suspension -) 400 mg GT BID [facility] Last Admin: 01/22/20 10:00 Dose: 400 mg Documented by: Albuterol/Ipratropium (Duoneb -) 1 amp NEB QID PRN PRN Reason: WHEEZING Last Admin: 01/17/20 21:18 Dose: 1 amp Documented by: Amoxicillin/Clavulanate Potassium (Augmentin - 875mg Tablet) 1 tab PO BID@0800,1730 [facility] Bisacodyl (Dulcolax Suppository -) 10 mg RC PRN PRN PRN Reason: CONSTIPATION Last Admin: 01/22/20 09:59 Dose: 10 mg Documented by: Budesonide (Pulmicort 0.25 Mg Nebulizer -) 1 amp NEB RBID [facility] Last Admin: 01/22/20 08:04 Dose: 1 amp Documented by: Clobazam (Onfi -) 10 mg GT HS [facility] Last Admin: 01/21/20 22:06 Dose: 10 mg Documented by: Clonazepam (Klonopin -) 0.5 mg GT TID [facility] Last Admin: 01/22/20 06:25 Dose: 0.5 mg Documented by: Diazepam (Diastat Rectal Gel 7.5 Mg) 7.5 mg RC DAILY PRN PRN Reason: AGITATION Last Admin: 01/22/20 13:01 Dose: 7.5 mg Documented by: Docusate Sodium (Colace Liquid -) 100 mg GT BID [facility] Last Admin: 01/22/20 09:59 Dose: 100 mg Documented by: Enoxaparin Sodium (Lovenox -) 40 mg SQ DAILY [facility] Last Admin: 01/22/20 09:59 Dose: 40 mg Documented by: Lamotrigine (Lamictal -) 200 mg PO BID [facility] Last Admin: 01/22/20 09:59 Dose: 200 mg Documented by: Phenobarbital (Phenobarbital Liquid -) 60 mg GT BID [facility] Last Admin: 01/22/20 09:59 Dose: 60 mg Documented by: Gen: NAD, non-verbal Heart: RRR Lung: Scattered rhonchi, decreased breath sounds at the bases Abd: soft, nontender Ext: contracted Laboratory Results - last 24 hr 01/22/20 01/22/20 08:00 08:00 WBC 6.1 RBC 3.64 L Hgb 12.2 Hct 36.3 MCV 99.9 H MCH 33.6 MCHC 33.6 RDW 14.7 Plt Count 246 D MPV 9.2 Absolute Neuts (auto) 4.3 Neutrophils % 70.2 Lymphocytes % 14.0 D Monocytes % 13.2 H Eosinophils % 2.1 Basophils % 0.5 Nucleated RBC % 0 Sodium 139 Potassium 3.4 L Chloride 101 Carbon Dioxide 32 Anion Gap 6 L BUN 5.6 L Creatinine 0.6 Est GFR (CKD-EPI)AfAm 164.25 Est GFR (CKD-EPI)NonAf 141.72 Random Glucose 110 H Calcium 8.5 A/P Acute on Chronic Hypoxic Respiratory Failure Pneumonia likely Aspiration Ileus Cerebral Palsy Seizure Disorder Mental Retardation Functional Quadriplegia - continue antibiotics - O2 to keep SpO2 >95% - Wean supplemental O2 as tolerated - aspiration precautions - DVT prophylaxis Dr Price
[2020-01-22] MEDS ORDERED: LORazepam 2 MG/ML SDV VIAL IM ONE (13:21)
[2020-01-22] MEDS ORDERED: LORazepam 2 MG/ML SDV VIAL ONE ×2 (13:22→13:33)
[2020-01-22] MEDS ORDERED: LORazepam 2 MG/ML SDV VIAL IVPUSH ONE (13:30)
[2020-01-22] MEDS ORDERED: ACETAMINOPHEN 1000 MG/100 ML VIAL (NON FORMULARY) IVPB ONE ×2 (13:31→13:45)
[2020-01-22] MEDS ORDERED: ACETAMINOPHEN INJECTION 100 ML IVPB ONE (13:33)
--- NOTE | 2020-01-22 13:44 | RAPID ---
Physical Examination Vital Signs: Vital Signs Temperature 100.4 F H 01/22/20 10:21 Pulse Rate 72 01/22/20 10:21 Respiratory Rate 29 H 01/22/20 10:21 Blood Pressure 106/61 01/22/20 10:21 O2 Sat by Pulse Oximetry (%) 99 01/22/20 10:21 Labs: CBC, BMP 01/22/20 08:00 01/22/20 08:00 Rapid Response - Rapid Response Assessment: Rapid response called overhead. [employer]IM[employer]RAF[employer] responded immediately. Pt found to be having tremulousness throughout his entire body despite 7.5 mg rectal diazepam. Pt was also febrile at 101.5. 1 mg ativan given IM (due to lost IV access). IV access subsequently achieved and 0.5 mg ativan given. IV ofirmev given for fever. Pt was subsequently less tremulous. Vitals: 105/41 HR 130 T 101.5F SpO2 95% on ventimask Plan: -Ativan 1mg IM given once -Ativan 0.5mg IV given once -Ofirmev 750mg IV once - f/u CXR -f/u repeat blood cultures
--- NOTE | 2020-01-22 14:22 | CON.GU ---
Consult - History of Present Illness History of Present Illness: 24 yo male with CP admitted with resp fail;ure. 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 (Mental retardation, cerebral palsy) Pulmonary: Yes: Asthma, Pneumonia Gastrointestinal: Yes: Other (gastrostomy) Infectious Disease: Yes: Herpes Zoster Musculoskeletal: Yes: Other (Functional Qaudraplegic) - Alcohol/Substance Use Hx Alcohol Use: No - Smoking History Smoking history: Never smoked Have you smoked in the past 12 months: No Aproximately how many cigarettes per day: 0 - Social History Usual Living Arrangement: [facility] ADL: Support Services History of Recent Travel: No Home Medications - Allergies Allergies/Adverse Reactions: Allergies Allergy/AdvReac Type Severity Reaction Status Date / Time No Known Allergies Allergy Verified 06/11/19 09:59 - Home Medications Home Medications: Ambulatory Orders Acyclovir 400 mg GT BID 04/25/17 Baclofen 10 mg GT BID 04/25/17 Clobazam [Onfi -] 10 mg GT HS 04/25/17 Clonazepam 0.5 mg GT TID 04/25/17 Lamotrigine 200 mg GT BID 04/25/17 Multivitamin [Poly-Vitamin] 1 each GT HS 04/25/17 Phenobarbital 45 mg GT BID 04/25/17 Diazepam Rectal Gel [Diastat Rectal Gel -] 7.5 mg NV PRN PRN 05/23/18 Protein Supplement [Promod] 1,190 ml GT DAILY 05/23/18 Budesonide [Pulmicort 0.25 mg Nebulizer -] 1 neb IH BID 02/05/19 Fluticasone Prop 0.05% Nasal [Flonase -] 2 spray NS AM 02/05/19 Magnesium Hydrox 2400MG/30Ml [Milk of Magnesia -] 20 ml GT BID 02/05/19 Albuterol 2.5/Ipratropium 0.5 [Duoneb -] 1 neb IH QID PRN #30 neb 02/14/19 Sodium Chloride/Aloe Vera [[place] Saline Nasal Gel Valera] 22 ml NS BID 06/01/19 Bisacodyl 10 mg RC PRN PRN 11/22/19 Diphenhydramine [Benadryl 12.5 MG/5 ML Oral Solution -] 25 mg PO Q6H PRN 11/22/19 Famotidine 10 mg PO BID 11/22/19 Lactobacillus Acidophilus [Acidophilus] 1 each PO HS 11/22/19 Simethicone Liquid [Mylicon Liquid -] 40 mg PO PRN PRN 11/22/19 Docusate Liquid [Colace Liquid -] 100 mg GT BID ud 11/29/19 Family Medical History Family History: Unable to Obtain Physical Exam- Vital Signs: Vital Signs Temperature 100.4 F H 01/22/20 10:21 Pulse Rate 72 01/22/20 10:21 Respiratory Rate 29 H 01/22/20 10:21 Blood Pressure 106/61 01/22/20 10:21 O2 Sat by Pulse Oximetry (%) 99 01/22/20 10:21 Renal/: Yes: Lane Present Labs: CBC, BMP 01/22/20 08:00 01/22/20 08:00 Problem List - Problems (1) Urinary retention Assessment/Plan: likely neurogenic bladder dysfunction. would start urecholine and flomax. may give voiding trial in 2 days Code(s): R33.9 - RETENTION OF URINE, UNSPECIFIED
[2020-01-22] MEDS: TAMSULOSIN HCL 0.4 MG CAP PO SCH (15:34)
[2020-01-22] MEDS ORDERED: AMOX TR/POT CLAV 875MG/125MG TABLETS (FP) PO SCH (17:30)
--- NOTE | 2020-01-22 19:25 | PN ---
Physical Exam: SUBJECTIVE: Patient seen and examined. As per night nurse, pt had urinary retention overnight. Esqueda placed. OBJECTIVE: Vital Signs Period Temp Pulse Resp BP Sys/Linares Pulse Ox Last 24 Hr 97.6 F-100.4 F 67-107 20-29 103-111/46-64 94-100 GENERAL: Somnolent, but arousable. No acute distress. HEENT: Microcephaly. Atraumatic. PERRL, dry mucous membranes. LUNGS: scattered rhonchi b/l HEART: RRR, normal S1 and S2 without murmur ABDOMEN: Distended, nontender to palpation, G-tube in place. EXTREMITIES: warm, well-perfused, contracted. No edema SKIN: Warm, diaphoretic. : Esqueda in place. Sediments visualized CBC, BMP 01/22/20 08:00 01/22/20 08:00 Active Medications Acetaminophen (Tylenol -) 650 mg NR Q6H PRN PRN Reason: Fever Or Pain Acyclovir (Zovirax Oral Suspension -) 400 mg GT BID [facility] Last Admin: 01/22/20 10:00 Dose: 400 mg Documented by: Albuterol/Ipratropium (Duoneb -) 1 amp NEB QID PRN PRN Reason: WHEEZING Last Admin: 01/17/20 21:18 Dose: 1 amp Documented by: Bethanechol Chloride (Urecholine -) 25 mg PO TID [facility] Bisacodyl (Dulcolax Suppository -) 10 mg RC PRN PRN PRN Reason: CONSTIPATION Last Admin: 01/22/20 09:59 Dose: 10 mg Documented by: Budesonide (Pulmicort 0.25 Mg Nebulizer -) 1 amp NEB RBID [facility] Last Admin: 01/22/20 08:04 Dose: 1 amp Documented by: Clobazam (Onfi -) 10 mg GT HS [facility] Last Admin: 01/21/20 22:06 Dose: 10 mg Documented by: Clonazepam (Klonopin -) 0.5 mg GT TID [facility] Last Admin: 01/22/20 13:55 Dose: 0.5 mg Documented by: Diazepam (Diastat Rectal Gel 7.5 Mg) 7.5 mg RC DAILY PRN PRN Reason: AGITATION Last Admin: 01/22/20 13:01 Dose: 7.5 mg Documented by: Docusate Sodium (Colace Liquid -) 100 mg GT BID [facility] Last Admin: 01/22/20 09:59 Dose: 100 mg Documented by: Doxazosin Mesylate (Cardura -) 4 mg GT DAILY [facility] Enoxaparin Sodium (Lovenox -) 40 mg SQ DAILY [facility] Last Admin: 01/22/20 09:59 Dose: 40 mg Documented by: Piperacillin Sod/Tazobactam (Sod 3.375 gm/ Dextrose) 50 mls @ 100 mls/hr IVPB Q8H-IV [facility]; Protocol Metronidazole (Flagyl 500mg Premixed Ivpb -) 500 mg in 100 mls @ 100 mls/hr IVPB Q8H-IV [facility] Last Admin: 01/22/20 18:10 Dose: 100 mls/hr Documented by: Lamotrigine (Lamictal -) 200 mg PO BID [facility] Last Admin: 01/22/20 09:59 Dose: 200 mg Documented by: Phenobarbital (Phenobarbital Liquid -) 60 mg GT BID [facility] Last Admin: 01/22/20 09:59 Dose: 60 mg Documented by: Tamsulosin HCl (Flomax -) 0.4 mg PO DAILY@0830 [facility] Last Admin: 01/22/20 15:34 Dose: Not Given Documented by: CT A/P; 01/12 Large volume stool impaction up to the level of the sigmoid colon with associated gaseous distention of large bowel proximally. This finding is similar to prior study with slightly greater distention at the level of the sigmoid. If further imaging evaluation of bowel is clinically desired, recommend enteric contrast administration on follow-up. No evidence of pneumoperitoneum. Refer to concurrent chest CT report for complete findings above the diaphragm, including discussion of suspected aspiration pneumonia. KUB; 01/16 Single view of the abdomen again reveals distended bowel mainly involving colon rather than small bowel. The cecum or sigmoid appears distended over the lower LS spine and upper sacrum. There is hand artifact in the right upper quadrant and a G-tube with some questionable material in the stomach. Free air or pneumatosis is not seen. There is no air or stool seen in the rectum. There is a dense left base. There is evidence of bilateral hip surgeries. Correlation and follow-up recommended. For more complete evaluation, CT may be of help. CXR; 01/19 Single view of the chest has been submitted. There is a weak inspiration with resultant prominent mediastinum, central crowding and some questionable atelectasis or infiltrate at the left base. The angles are sharp and the soft tissues are intact. There may be some old rib fractures. There is generalized abdominal distention. Since 01/17/2020, increased lung markings have diminished. The retrocardiac density has diminished as well. The abdominal distention persists. Again noted is a weak inspiration. ASSESSMENT/PLAN: 24 year old M from [facility], [place], with PMH cerebral palsy, herpes encephalitis, GERD, aspiration PNA, dysphagia (s/p G tube) presented to ED with hypoxia and respiratory distress. Pt was in ICU due to hypoxia and hypotension and downgraded to med-surg. Was placed on BiPAP with good response. Pt is currently admitted for aspiration PNA and ileus. Sepsis secondary to aspiration PNA - CT chest, CXR as above. -c/w zosyn (started 01/13), today is day 9 (pending approval from ID). C/w Flagyl 500 q8H (started 01/19), today is day 3. -ID consulted. Recommended c/w zosyn. - Pulmonology consulted. Recommended c/w abx, wean supplemental O2 as tolerated. - c/w budesonide, albuterol/ipratropium -Cultures: -01/21 Bcx pending. -01/20 Ucx negative. Sputum cx pending. -01/19 Bcx negative. -01/15 Sputum culture grew Pseudomonas. -01/13 Ucx negative. Urine legionella/strep pneumo negative. -01/12 Bcx negative. -supplemental O2, maintain SaO2 >95% -aspiration precautions -COVID-19 PCR negative - keep NPO - f/u repeat CXR, ABG - c/w acetaminophen 650mg NR q6H PRN Hypokalemia, hypomagnesemia, improved - f/u electrolytes and replete as necessary Ileus, stool impaction -CT abd as above. -c/w bowel regimen Seizures - Neuro consulted. Recommended increase phenobarbital 60mg BID GT. C/w clonazepam 0.5 TID, clobazam 10mg qHS, lamotrigine 200mg q12H. D/c baclofen and observe. - c/w diazepam MN 7.5 qD PRN. -RR called 01/21 due to increased tremulousness, febrile at 101.5F. Given 1mg Ativan IM, 0.5mg Ativan IV, Ofirmev 750mg once. Improved. F/u repeat CXR Hematuria, Urinary retention - Bladder scan showed >300mL. Straight cath x2. Decision made to place esqueda. Sediments noted in urine. - Urology consulted. likely neurogenic bladder dysfunction. Recommended to start urecholine and flomax. Voiding trial in 2 days. -Flomax cannot be placed in PEG. Contacted pharmacy, suggested Cardura 4mg GT daily. - UA 3+ blood - continue to monitor Hx of herpes encephalitis -c/w acyclovir 400 BID Transaminitis, improved -continue to monitor LFT -US as above. No gallstones, no intrahepatic duct dilation. GERD -consider PPI, however, h/o hypomagnesemia FEN - No standing fluids - monitor and replete lytes - NPO Ppx -DVT: Lovenox Dispo: continue to monitor on m/s Visit type - Emergency Visit Emergency Visit: Yes ED Registration Date: 01/13/20 Care time: The patient presented to the Emergency Department on the above date and was hospitalized for further evaluation of their emergent condition. - New Patient This patient is new to me today: No - Critical Care Critical Care patient: No ATTENDING PHYSICIAN STATEMENT I saw and evaluated the patient. I reviewed the resident's note and discussed the case with the resident. I agree with the resident's findings and plan as documented. SUBJECTIVE: OBJECTIVE: ASSESSMENT AND PLAN:
[2020-01-22] MEDS: ALBUTEROL SO4 2.5/IPRATROPIUM 0.5 INH SOL 3 ML VIAL.NEB. NEB PRN (20:45)
[2020-01-22] MEDS: cloBAZam 10 MG TABLET GT SCH (21:55)
[2020-01-22] MEDS ORDERED: POTASSIUM CHLORIDE ORAL LIQUID 20 MEQ/15 ML GT ONE (22:00)
[2020-01-22] MEDS: BETHANECHOL CHLORIDE 25 MG TABLET PO SCH (22:00)
[2020-01-23] MEDS ORDERED: SODIUM CHLORIDE 0.9% 500 ML INFUS.BAG IV ONE (01:38)
[2020-01-23] MEDS ORDERED: PIPERACILLIN/TAZOBACTAM 3.375 GM VIAL IVPB ONE ×2 (02:14→08:22)
[2020-01-23] MEDS ORDERED: DEXTROSE 5%-WATER - 50 ML IVPB ONE ×2 (02:14→08:23)
[2020-01-23] MEDS: PIPERACILLIN/TAZOB 3.375 GM 3.375 GM in DEXTROSE 5%-WATER - 50 ML IVPB SCH ×3 (02:52→13:29)
[2020-01-23] MEDS: BETHANECHOL CHLORIDE 25 MG TABLET PO SCH ×3 (06:16→21:58)
[2020-01-23] MEDS: clonazePAM 0.5 MG TABLET GT SCH ×3 (06:16→21:58)
[2020-01-23 08:32] LABS: BASO % 0.8 % (0-2.0); EOS % 2.7 % (0-4.5); HEMATOCRIT 33.4 % (35.4-49); HEMOGLOBIN 11.4 GM/dL (11.7-16.9); MCH 34.5 pg (25.7-33.7); MCHC 34.2 g/dl (32.0-35.9); MEAN CELL VOLUME 100.8 fl (80-96); MEAN PLT VOLUME 8.7 fl (7.5-11.1); MONO % 12.9 % (3.8-10.2); NEUT % 57.6 % (42.8-82.8); PLATELET COUNT 258 K/MM3 (134-434); RBC 3.31 M/mm3 (4.00-5.60); RDW 15.2 % (11.9-15.9)
[2020-01-23] MEDS ORDERED: SODIUM CHLORIDE 500 ML IV STA (08:34)
[2020-01-23 08:53] LABS: BLOOD UREA NITROGEN 5.2 mg/dL (7-18); CALCIUM 8.4 mg/dL (8.5-10.1); CREATININE 0.5 mg/dL (0.55-1.3); POTASSIUM 3.6 mmol/L (3.5-5.1)
[2020-01-23] MEDS: TAMSULOSIN HCL 0.4 MG CAP PO SCH (09:14)
[2020-01-23] MEDS ORDERED: PT OWN MED DRAWER 7, Y5N ONE ×3 (09:29→21:54)
[2020-01-23] MEDS: DOCUSATE NA 100 MG/10 ML UNIT-DOSE CUPS GT SCH ×2 (09:32→21:58)
[2020-01-23] MEDS: PHENobarbital 20 MG/5 ML UNIT-DOSE CUP GT SCH ×2 (09:32→21:57)
[2020-01-23] MEDS: ACETAMINOPHEN 325 MG TABLET (FP) NR PRN ×2 (09:32→14:55)
[2020-01-23] MEDS: lamoTRIgine 100 MG TABLET PO SCH ×2 (09:33→21:58)
[2020-01-23] MEDS: ENOXAPARIN NA (PORCINE) 40 MG/0.4 ML DISP.SYRIN SQ SCH (09:34)
[2020-01-23] MEDS: ACYCLOVIR 200 MG/5 ML LIQUID GT SCH ×2 (09:34→21:59)
[2020-01-23] MEDS ORDERED: DOXAZOSIN MESYLATE 4 MG TABLET GT SCH (10:00)
[2020-01-23] MEDS: BUDESONIDE 0.25 MG/2ML INH SUSP VIAL NEB SCH ×2 (13:28→20:24)
--- NOTE | 2020-01-23 13:33 | PN ---
Progress Note (short form) - Note Progress Note: fever yesterday recultures esqueda placed overnight episode of desaturation this am, responded to suctioning- ?aspirationa Vital Signs Period Temp Pulse Resp BP Sys/Linares Pulse Ox Last 24 Hr 98.1 F-101.7 F 68-133 26-28 85-131/38-65 84-98 cor-rrr lungs decreased bs at bases abd soft,nt +GT ext contracted Vital Signs Period Temp Pulse Resp BP Sys/Linares Pulse Ox Last 24 Hr 98.0 F-100.4 F 57-104 20-29 86-103/36-48 97-100 cor-rrr llungs decreased bs at bases abd soft,nt +GT ext contracted CBC, BMP 01/23/20 07:40 01/23/20 07:40 Microbiology 01/20/20 09:40 Blood - Peripheral Venous Blood Culture - Preliminary NO GROWTH OBTAINED AFTER 72 HOURS, INCUBATION TO CONTINUE FOR 2 DAYS. 01/20/20 09:50 Blood - Peripheral Venous Blood Culture - Preliminary NO GROWTH OBTAINED AFTER 72 HOURS, INCUBATION TO CONTINUE FOR 2 DAYS. 01/21/20 08:00 Sputum - Oropharynx Suctioned Sputum Gram Stain - Final 01/21/20 08:00 Sputum - Oropharynx Suctioned Sputum Sputum Culture - Preliminary Gram Negative Zeb Presumptive Ps Aeruginosa Gram Negative Zeb#2 01/21/20 08:00 Urine - Urine - Catheterized Urine Culture - Final NO GROWTH OBTAINED 01/16/20 23:44 Sputum - Oropharynx Suctioned Sputum Gram Stain - Final 01/16/20 23:44 Sputum - Oropharynx Suctioned Sputum Sputum Culture - Final Pseudomonas Aeruginosa 01/13/20 12:24 Blood - Peripheral Venous Blood Culture - Final NO GROWTH AFTER 5 DAYS INCUBATION 01/13/20 12:24 Blood - Peripheral Venous Blood Culture - Final NO GROWTH AFTER 5 DAYS INCUBATION 01/14/20 01:15 Urine - Urine Clean Catch Urine Culture - Final NO GROWTH OBTAINED 01/14/20 01:15 Urine For Antigen Detection Legionella Antigen - Final 01/14/20 01:15 Urine For Antigen Detection Streptococcus pneumoniae Antigen (M - Final a/p recurrent fevers- dsepite zosyn, cxray unchanged urinary retention now with esqueda aspiration pneumonia day #10 zosyn stool impaction- improved abnormal LFTS-resolving d/c antibiotics and observe Problem List - Problems (1) Hypoxia Code(s): R09.02 - HYPOXEMIA (2) Pneumonia Code(s): J18.9 - PNEUMONIA, UNSPECIFIED ORGANISM (3) Fecal impaction Code(s): K56.41 - FECAL IMPACTION (4) Abnormal LFTs Code(s): R94.5 - ABNORMAL RESULTS OF LIVER FUNCTION STUDIES (5) Seizure Code(s): R56.9 - UNSPECIFIED CONVULSIONS (6) History of encephalitis Code(s): Z86.61 - PERSONAL HISTORY OF INFECTIONS OF THE CENTRAL NERVOUS SYSTEM
--- NOTE | 2020-01-23 13:44 | PN ---
Progress Note (short form) - Note Progress Note: Alternating between NIPPV overnight and 50% VM O2. Nonverbal. No acute events overnight. Intake & Output 01/20/20 01/21/20 01/22/20 01/23/20 23:59 23:59 23:59 23:59 Intake Total 50 0 1630 1430 Output Total 200 200 300 Balance -150 -200 1330 1430 Last Vital Signs Temp Pulse Resp BP Pulse Ox 100.1 F H 82 22 H 86/46 L 98 01/23/20 09:10 01/23/20 09:10 01/23/20 09:10 01/23/20 09:10 01/23/20 09:10 Active Medications Acetaminophen (Tylenol -) 650 mg NR Q6H PRN PRN Reason: Fever Or Pain Last Admin: 01/23/20 09:32 Dose: 650 mg Documented by: Acyclovir (Zovirax Oral Suspension -) 400 mg GT BID [facility] Last Admin: 01/23/20 09:34 Dose: 400 mg Documented by: Albuterol/Ipratropium (Duoneb -) 1 amp NEB QID PRN PRN Reason: WHEEZING Last Admin: 01/22/20 20:45 Dose: 1 amp Documented by: Bethanechol Chloride (Urecholine -) 25 mg PO TID [facility] Last Admin: 01/23/20 06:16 Dose: 25 mg Documented by: Bisacodyl (Dulcolax Suppository -) 10 mg RC PRN PRN PRN Reason: CONSTIPATION Last Admin: 01/22/20 09:59 Dose: 10 mg Documented by: Budesonide (Pulmicort 0.25 Mg Nebulizer -) 1 amp NEB RBID [facility] Last Admin: 01/23/20 13:28 Dose: Not Given Documented by: Clobazam (Onfi -) 10 mg GT HS [facility] Last Admin: 01/22/20 21:55 Dose: 10 mg Documented by: Clonazepam (Klonopin -) 0.5 mg GT TID [facility] Last Admin: 01/23/20 06:16 Dose: 0.5 mg Documented by: Diazepam (Diastat Rectal Gel 7.5 Mg) 7.5 mg RC DAILY PRN PRN Reason: AGITATION Last Admin: 01/22/20 13:01 Dose: 7.5 mg Documented by: Docusate Sodium (Colace Liquid -) 100 mg GT BID [facility] Last Admin: 01/23/20 09:32 Dose: 100 mg Documented by: Enoxaparin Sodium (Lovenox -) 40 mg SQ DAILY [facility] Last Admin: 01/23/20 09:34 Dose: 40 mg Documented by: Lamotrigine (Lamictal -) 200 mg PO BID [facility] Last Admin: 01/23/20 09:33 Dose: 200 mg Documented by: Phenobarbital (Phenobarbital Liquid -) 60 mg GT BID [facility] Last Admin: 01/23/20 09:32 Dose: 60 mg Documented by: Tamsulosin HCl (Flomax -) 0.4 mg PO DAILY@0830 [facility] Last Admin: 01/23/20 09:14 Dose: Not Given Documented by: Gen: NAD, non-verbal Heart: RRR Lung: Scattered rhonchi, decreased breath sounds at the bases Abd: soft, nontender Ext: contracted Laboratory Results - last 24 hr 01/23/20 01/23/20 07:40 07:40 WBC 5.0 RBC 3.31 L Hgb 11.4 L Hct 33.4 L MCV 100.8 H MCH 34.5 H MCHC 34.2 RDW 15.2 Plt Count 258 MPV 8.7 Absolute Neuts (auto) 2.9 Neutrophils % 57.6 Lymphocytes % 26.0 D Monocytes % 12.9 H Eosinophils % 2.7 Basophils % 0.8 Nucleated RBC % 0 Sodium 141 Potassium 3.6 Chloride 106 Carbon Dioxide 32 Anion Gap 4 L BUN 5.2 L Creatinine 0.5 L Est GFR (CKD-EPI)AfAm 177.03 Est GFR (CKD-EPI)NonAf 152.75 Random Glucose 112 H Calcium 8.4 L A/P Acute on Chronic Hypoxic Respiratory Failure Pneumonia likely Aspiration Ileus Cerebral Palsy Seizure Disorder Mental Retardation Functional Quadriplegia - continue antibiotics - O2 to keep SpO2 >95% - Wean supplemental O2 as tolerated - aspiration precautions - DVT prophylaxis Dr Price
[2020-01-23] MEDS ORDERED: BENZOCAINE/MENTH/CETYLPYRD CL 1 EACH LOZENGE MM PRN (14:13)
--- NOTE | 2020-01-23 14:39 | PN ---
Physical Exam: SUBJECTIVE: Patient seen and examined. Pt was hypotensive overnight. Given 500 cc IVF bolus. OBJECTIVE: Vital Signs Period Temp Pulse Resp BP Sys/Linares Pulse Ox Last 24 Hr 98.0 F-100.1 F 57-84 22-29 86-102/36-46 97-100 GENERAL: Somnolent, but arousable. No acute distress. HEENT: Microcephaly. Atraumatic. PERRL, dry mucous membranes. LUNGS: decreased breath sounds at bases HEART: RRR, normal S1 and S2 without murmur ABDOMEN: Distended, nontender to palpation, G-tube in place. EXTREMITIES: warm, well-perfused, contracted. No edema SKIN: Warm, dry. : Esqueda in place. Sediments visualized Laboratory Last Values WBC 5.0 K/mm3 (4.0-10.0) 01/23/20 07:40 RBC 3.31 M/mm3 (4.00-5.60) L 01/23/20 07:40 Hgb 11.4 GM/dL (11.7-16.9) L 01/23/20 07:40 Hct 33.4 % (35.4-49) L 01/23/20 07:40 MCV 100.8 fl (80-96) H 01/23/20 07:40 MCH 34.5 pg (25.7-33.7) H 01/23/20 07:40 MCHC 34.2 g/dl (32.0-35.9) 01/23/20 07:40 RDW 15.2 % (11.9-15.9) 01/23/20 07:40 Plt Count 258 K/MM3 (134-434) 01/23/20 07:40 MPV 8.7 fl (7.5-11.1) 01/23/20 07:40 Absolute Neuts (auto) 2.9 K/mm3 (1.5-8.0) 01/23/20 07:40 Neutrophils % 57.6 % (42.8-82.8) 01/23/20 07:40 Neutrophils % (Manual) 75.0 % (42.8-82.8) D 01/14/20 08:40 Band Neutrophils % 17.0 % 01/14/20 08:40 Lymphocytes % 26.0 % (8-40) D 01/23/20 07:40 Lymphocytes % (Manual) 3.0 % (8-40) L D 01/14/20 08:40 Monocytes % 12.9 % (3.8-10.2) H 01/23/20 07:40 Monocytes % (Manual) 2 % (3.8-10.2) L 01/14/20 08:40 Eosinophils % 2.7 % (0-4.5) 01/23/20 07:40 Eosinophils % (Manual) 1.0 % (0-4.5) D 01/14/20 08:40 Basophils % 0.8 % (0-2.0) 01/23/20 07:40 Basophils % (Manual) 0.0 % (0-2.0) 01/14/20 08:40 Myelocytes % (Man) 0 % (0-2) 01/14/20 08:40 Promyelocytes % (Man) 0 % (0-2) 01/14/20 08:40 Blast Cells % (Manual) 0 % (0-0) 01/14/20 08:40 Nucleated RBC % 0 % (0-0) 01/23/20 07:40 Metamyelocytes 1 % (0-2) D 01/14/20 08:40 Hypochromia 0 01/14/20 08:40 Toxic Granulation 2+ 01/14/20 08:40 Platelet Estimate Normal 01/14/20 08:40 Platelet Comment Present 01/14/20 08:40 Polychromasia 0 01/14/20 08:40 Poikilocytosis 1+ 01/14/20 08:40 Anisocytosis 1+ 01/14/20 08:40 Microcytosis 0 01/14/20 08:40 Macrocytosis 1+ 01/14/20 08:40 Spherocytes 2+ 01/14/20 08:40 Tear Drop Cells 1+ 01/14/20 08:40 PT with INR 13.80 SEC (9.7-13.0) H 01/19/20 09:23 INR 1.17 (0.83-1.09) H 01/19/20 09:23 PTT (Actin FS) 39.5 SECONDS (25.2-36.5) H 01/13/20 12:29 Anticoagulation Therapy No Result Required. 01/20/20 09:40 Puncture Site Right radial 01/20/20 09:40 Patient Temperature No Result Required. 01/20/20 09:40 ABG pH 7.412 (7.350-7.450) 01/20/20 09:40 ABG pCO2 42.00 mmHg (35-45) 01/20/20 09:40 ABG pO2 226.2 mmHg (80-100) H 01/20/20 09:40 ABG HCO3 26.1 mmol/L (22-27) 01/20/20 09:40 ABG O2 Sat (Measured) 99.5 mmHg (95-98) H 01/20/20 09:40 ABG O2 Content No Result Required. 01/20/20 09:40 ABG Base Excess 1.3 mmol/L (-2-2) 01/20/20 09:40 Kaushal Test Positive 01/20/20 09:40 VBG pH 7.449 (7.310-7.410) H 01/13/20 12:24 POC VBG pCO2 36.7 mmHg (38-52) L 01/13/20 12:24 POC VBG pO2 99.6 mmHg (28-48) H 01/13/20 12:24 VBG HCO3 24.9 mmol/L (23-29) 01/13/20 12:24 VBG O2 Sat (Renzo) 97.8 % (70-80) H 01/13/20 12:24 VBG Base Excess 1.2 mmol/L (-2-2) 01/13/20 12:24 Patient On Oxygen Yes 01/20/20 09:40 O2 Delivery Device V 01/20/20 09:40 Oxygen Flow Rate 100 01/20/20 09:40 Vent Mode Epap 01/20/20 09:40 Vent Rate 14 01/20/20 09:40 Mechanical Rate V 01/20/20 09:40 PEEP No Result Required. 01/20/20 09:40 Pressure Support Vent No Result Required. 01/20/20 09:40 Sodium 141 mmol/L (136-145) 01/23/20 07:40 Potassium 3.6 mmol/L (3.5-5.1) 01/23/20 07:40 Chloride 106 mmol/L (98-107) 01/23/20 07:40 Carbon Dioxide 32 mmol/L (21-32) 09/14/20 07:40 Anion Gap 4 MMOL/L (8-16) L 01/23/20 07:40 BUN 5.2 mg/dL (7-18) L 01/23/20 07:40 Creatinine 0.5 mg/dL (0.55-1.3) L 01/23/20 07:40 Est GFR (CKD-EPI)AfAm 177.03 01/23/20 07:40 Est GFR (CKD-EPI)NonAf 152.75 01/23/20 07:40 Random Glucose 112 mg/dL (74-106) H 01/23/20 07:40 Lactic Acid 0.9 mmol/L (0.4-2.0) 01/13/20 12:24 Calcium 8.4 mg/dL (8.5-10.1) L 01/23/20 07:40 Phosphorus 3.3 mg/dL (2.5-4.9) 01/21/20 10:03 Magnesium 1.6 mg/dL (1.8-2.4) L 01/21/20 10:03 Total Bilirubin 0.4 mg/dL (0.2-1) 01/21/20 10:03 AST 20 U/L (15-37) 01/21/20 10:03 ALT 33 U/L (13-61) 01/21/20 10:03 Alkaline Phosphatase 236 U/L (45-117) H 01/21/20 10:03 Troponin I < 0.02 ng/ml (0.00-0.05) 01/13/20 12:29 Total Protein 7.5 g/dl (6.4-8.2) 01/21/20 10:03 Albumin 3.3 g/dl (3.4-5.0) L 01/21/20 10:03 Urine Color Yellow 01/18/20 18:50 Urine Appearance Clear 01/18/20 18:50 Urine pH 6.0 (5.0-8.0) 01/18/20 18:50 Ur Specific [place] 1.016 (1.010-1.035) 01/18/20 18:50 Urine Protein 2+ (NEGATIVE) H 01/18/20 18:50 Urine Glucose (UA) Negative (NEGATIVE) 01/18/20 18:50 Urine Ketones 3+ (NEGATIVE) H 01/18/20 18:50 Urine Blood 3+ (NEGATIVE) H 01/18/20 18:50 Urine Nitrite Negative (NEGATIVE) 01/18/20 18:50 Urine Bilirubin Negative (NEGATIVE) 01/18/20 18:50 Urine Urobilinogen 0.2 mg/dL (0.2-1.0) 01/18/20 18:50 Ur Leukocyte Esterase Trace (NEGATIVE) 01/18/20 18:50 Urine WBC (Auto) 51 /uL (0-25.8) 01/18/20 18:50 Urine RBC (Auto) 2765 /uL (0-23.9) 01/18/20 18:50 Urine Casts (Auto) 2 /uL (0-3.1) 01/18/20 18:50 U Epithel Cells (Auto) 12 /uL (0-25.1) 01/18/20 18:50 Urine Bacteria (Auto) 11 /uL (0-1359) 01/18/20 18:50 Lamotrigine 8.8 mg/L (2.0-20.0) 01/13/20 12:24 Phenobarbital 19 ug/mL (15-40) 01/13/20 12:24 COVID-19 (JOSEPHINE) Not detected (Not Detected) 01/13/20 12:42 Active Medications Acetaminophen (Tylenol -) 650 mg NR Q6H PRN PRN Reason: Fever Or Pain Last Admin: 01/23/20 14:55 Dose: 650 mg Documented by: Acyclovir (Zovirax Oral Suspension -) 400 mg GT BID COUNTS INCLUDE 234 BEDS AT THE [facility] Last Admin: 01/23/20 09:34 Dose: 400 mg Documented by: Albuterol/Ipratropium (Duoneb -) 1 amp NEB QID PRN PRN Reason: WHEEZING Last Admin: 01/22/20 20:45 Dose: 1 amp Documented by: Benzocaine/Menthol (Cepacol Lozenge -) 1 each MM PRN PRN PRN Reason: SORE THROAT Bethanechol Chloride (Urecholine -) 25 mg PO TID COUNTS INCLUDE 234 BEDS AT THE [facility] Last Admin: 01/23/20 14:45 Dose: 25 mg Documented by: Bisacodyl (Dulcolax Suppository -) 10 mg RC PRN PRN PRN Reason: CONSTIPATION Last Admin: 01/22/20 09:59 Dose: 10 mg Documented by: Budesonide (Pulmicort 0.25 Mg Nebulizer -) 1 amp NEB RBID COUNTS INCLUDE 234 BEDS AT THE [facility] Last Admin: 01/23/20 13:28 Dose: Not Given Documented by: Clobazam (Onfi -) 10 mg GT HS COUNTS INCLUDE 234 BEDS AT THE [facility] Last Admin: 01/22/20 21:55 Dose: 10 mg Documented by: Clonazepam (Klonopin -) 0.5 mg GT TID COUNTS INCLUDE 234 BEDS AT THE [facility] Last Admin: 01/23/20 14:42 Dose: 0.5 mg Documented by: Diazepam (Diastat Rectal Gel 7.5 Mg) 7.5 mg RC DAILY PRN PRN Reason: AGITATION Last Admin: 01/22/20 13:01 Dose: 7.5 mg Documented by: Docusate Sodium (Colace Liquid -) 100 mg GT BID COUNTS INCLUDE 234 BEDS AT THE [facility] Last Admin: 01/23/20 09:32 Dose: 100 mg Documented by: Enoxaparin Sodium (Lovenox -) 40 mg SQ DAILY COUNTS INCLUDE 234 BEDS AT THE [facility] Last Admin: 01/23/20 09:34 Dose: 40 mg Documented by: Lamotrigine (Lamictal -) 200 mg PO BID COUNTS INCLUDE 234 BEDS AT THE [facility] Last Admin: 01/23/20 09:33 Dose: 200 mg Documented by: Phenobarbital (Phenobarbital Liquid -) 60 mg GT BID COUNTS INCLUDE 234 BEDS AT THE [facility] Last Admin: 01/23/20 09:32 Dose: 60 mg Documented by: Tamsulosin HCl (Flomax -) 0.4 mg PO DAILY@0830 COUNTS INCLUDE 234 BEDS AT THE [facility] Last Admin: 01/23/20 09:14 Dose: Not Given Documented by: CT A/P; 01/12 Large volume stool impaction up to the level of the sigmoid colon with associated gaseous distention of large bowel proximally. This finding is similar to prior study with slightly greater distention at the level of the sigmoid. If further imaging evaluation of bowel is clinically desired, recommend enteric contrast administration on follow-up. No evidence of pneumoperitoneum. Refer to concurrent chest CT report for complete findings above the diaphragm, including discussion of suspected aspiration pneumonia. KUB; 01/16 Single view of the abdomen again reveals distended bowel mainly involving colon rather than small bowel. The cecum or sigmoid appears distended over the lower LS spine and upper sacrum. There is hand artifact in the right upper quadrant and a G-tube with some questionable material in the stomach. Free air or pneumatosis is not seen. There is no air or stool seen in the rectum. There is a dense left base. There is evidence of bilateral hip surgeries. Correlation and follow-up recommended. For more complete evaluation, CT may be of help. CXR; 01/19 Single view of the chest has been submitted. There is a weak inspiration with resultant prominent mediastinum, central crowding and some questionable atelectasis or infiltrate at the left base. The angles are sharp and the soft tissues are intact. There may be some old rib fractures. There is generalized abdominal distention. Since 01/17/2020, increased lung markings have diminished. The retrocardiac density has diminished as well. The abdominal distention persists. Again noted is a weak inspiration. ASSESSMENT/PLAN: 24 year old M from [facility], with PMH cerebral palsy, herpes encephalitis, GERD, aspiration PNA, dysphagia (s/p G tube) presented to ED with hypoxia and respiratory distress. Pt was in ICU due to hypoxia and hypotension and downgraded to med-surg. Was placed on BiPAP with good response. Pt is currently admitted for aspiration PNA and ileus. Sepsis secondary to aspiration PNA - CT chest, CXR as above. -c/w zosyn (started 01/13-01/21), total 9 days. C/w Flagyl 500 q8H (started 01/19- 01/21), total is 3 days. -ID consulted. Recommended d/c abx and observe. - Pulmonology consulted. Recommended c/w abx, wean supplemental O2 as tolerated. -Cultures: -01/21 Bcx negative -01/20 Ucx negative. Sputum cx GNR, presumptive pseudamonas, GNR #2 -01/19 Bcx negative. -01/15 Sputum culture grew Pseudomonas. -01/13 Ucx negative. Urine legionella/strep pneumo negative. -01/12 Bcx negative. -supplemental O2, maintain SaO2 >95% -aspiration precautions -COVID-19 PCR negative - keep NPO - f/u repeat CXR, ABG - c/w acetaminophen 650mg NR q6H PRN Hypokalemia, hypomagnesemia, improved - f/u electrolytes and replete as necessary Ileus, stool impaction -CT abd as above. -c/w bowel regimen Seizures - Neuro consulted. Recommended increase phenobarbital 60mg BID GT. C/w clonazepam 0.5 TID, clobazam 10mg qHS, lamotrigine 200mg q12H. D/c baclofen and observe. - c/w diazepam IA 7.5 qD PRN. -RR called 01/21 due to increased tremulousness, febrile at 101.5F. Given 1mg Ativan IM, 0.5mg Ativan IV, Ofirmev 750mg once. Improved. F/u repeat CXR Hematuria, Urinary retention - Bladder scan showed >300mL. Straight cath x2. Decision made to place esqueda. Sediments noted in urine. - Urology consulted. Likely neurogenic bladder dysfunction. Recommended to start urecholine and flomax. Voiding trial tomorrow. -Flomax cannot be placed through PEG. - UA 3+ blood - continue to monitor Hx of herpes encephalitis -c/w acyclovir 400 BID Transaminitis, improved -continue to monitor LFT -US as above. No gallstones, no intrahepatic duct dilation. GERD -consider PPI, however, h/o hypomagnesemia FEN - No standing fluids - monitor and replete lytes - NPO Ppx -DVT: Lovenox Dispo: continue to monitor on m/s Visit type - Emergency Visit Emergency Visit: Yes ED Registration Date: 01/13/20 Care time: The patient presented to the Emergency Department on the above date and was hospitalized for further evaluation of their emergent condition. - New Patient This patient is new to me today: No - Critical Care Critical Care patient: No ATTENDING PHYSICIAN STATEMENT I saw and evaluated the patient. I reviewed the resident's note and discussed the case with the resident. I agree with the resident's findings and plan as documented. SUBJECTIVE: OBJECTIVE: ASSESSMENT AND PLAN:
--- NOTE | 2020-01-23 16:25 | PN ---
Teaching Attending Note Name of Resident: Evie Wolfe ATTENDING PHYSICIAN STATEMENT I saw and evaluated the patient. I reviewed the resident's note and discussed the case with the resident. I agree with the resident's findings and plan as documented. SUBJECTIVE: Fever of 100.5 today. OBJECTIVE: Vital Signs Temperature 100.5 F H 01/23/20 15:12 Pulse Rate 88 01/23/20 15:12 Respiratory Rate 22 H 01/23/20 15:12 Blood Pressure 95/45 L 01/23/20 15:12 O2 Sat by Pulse Oximetry (%) 97 01/23/20 15:12 PE: per resident's note CBCD WBC 5.0 K/mm3 (4.0-10.0) 01/23/20 07:40 RBC 3.31 M/mm3 (4.00-5.60) L 01/23/20 07:40 Hgb 11.4 GM/dL (11.7-16.9) L 01/23/20 07:40 Hct 33.4 % (35.4-49) L 01/23/20 07:40 MCV 100.8 fl (80-96) H 01/23/20 07:40 MCHC 34.2 g/dl (32.0-35.9) 01/23/20 07:40 RDW 15.2 % (11.9-15.9) 01/23/20 07:40 Plt Count 258 K/MM3 (134-434) 01/23/20 07:40 MPV 8.7 fl (7.5-11.1) 01/23/20 07:40 CMP Sodium 141 mmol/L (136-145) 01/23/20 07:40 Potassium 3.6 mmol/L (3.5-5.1) 01/23/20 07:40 Chloride 106 mmol/L (98-107) 01/23/20 07:40 Carbon Dioxide 32 mmol/L (21-32) 01/23/20 07:40 Anion Gap 4 MMOL/L (8-16) L 01/23/20 07:40 BUN 5.2 mg/dL (7-18) L 01/23/20 07:40 Creatinine 0.5 mg/dL (0.55-1.3) L 01/23/20 07:40 Random Glucose 112 mg/dL (74-106) H 01/23/20 07:40 Calcium 8.4 mg/dL (8.5-10.1) L 01/23/20 07:40 Total Bilirubin 0.4 mg/dL (0.2-1) 01/21/20 10:03 AST 20 U/L (15-37) 01/21/20 10:03 ALT 33 U/L (13-61) 01/21/20 10:03 Alkaline Phosphatase 236 U/L (45-117) H 01/21/20 10:03 Total Protein 7.5 g/dl (6.4-8.2) 01/21/20 10:03 Albumin 3.3 g/dl (3.4-5.0) L 01/21/20 10:03 CARDIAC ENZYMES Troponin I < 0.02 ng/ml (0.00-0.05) 01/13/20 12:29 Current Medications Generic Name Dose Route Start Last Admin Trade Name Freq PRN Reason Stop Dose Admin Acetaminophen 650 mg 01/22/20 13:21 01/23/20 14:55 Tylenol - NR 650 mg Q6H PRN Administration Fever Or Pain Acyclovir 400 mg 01/16/20 22:00 01/23/20 09:34 Zovirax Oral Suspension - GT 400 mg BID JORGE Administration Albuterol/Ipratropium 1 amp 01/16/20 18:33 01/22/20 20:45 Duoneb - NEB 1 amp QID PRN Administration WHEEZING Benzocaine/Menthol 1 each 01/23/20 14:13 Cepacol Lozenge - MM PRN PRN SORE THROAT Bethanechol Chloride 25 mg 01/22/20 22:00 01/23/20 14:45 Urecholine - PO 25 mg TID JORGE Administration Bisacodyl 10 mg 01/16/20 18:33 01/22/20 09:59 Dulcolax Suppository - RC 10 mg PRN PRN Administration CONSTIPATION Budesonide 1 amp 01/16/20 20:00 01/23/20 13:28 Pulmicort 0.25 Mg Nebulizer - NEB Not Given RBID JORGE Clobazam 10 mg 01/16/20 22:00 01/22/20 21:55 Onfi - GT 10 mg HS JORGE Administration Clonazepam 0.5 mg 01/20/20 22:00 01/23/20 14:42 Klonopin - GT 0.5 mg TID JORGE Administration Diazepam 7.5 mg 01/20/20 09:03 01/22/20 13:01 Diastat Rectal Gel 7.5 Mg RC 7.5 mg DAILY PRN Administration AGITATION Docusate Sodium 100 mg 01/16/20 22:00 01/23/20 09:32 Colace Liquid - GT 100 mg BID JORGE Administration Enoxaparin Sodium 40 mg 01/17/20 10:00 01/23/20 09:34 Lovenox - SQ 40 mg DAILY JORGE Administration Lamotrigine 200 mg 01/16/20 22:00 01/23/20 09:33 Lamictal - PO 200 mg BID JORGE Administration Phenobarbital 60 mg 01/20/20 22:00 01/23/20 09:32 Phenobarbital Liquid - GT 60 mg BID JORGE Administration Tamsulosin HCl 0.4 mg 01/22/20 14:23 01/23/20 09:14 Flomax - PO Not Given DAILY@0830 [facility] Home Medications Medication Instructions Recorded Acyclovir 400 mg GT BID 04/25/17 Baclofen 10 mg GT BID 04/25/17 Clobazam [Onfi -] 10 mg GT HS 04/25/17 Clonazepam 0.5 mg GT TID 04/25/17 Lamotrigine 200 mg GT BID 04/25/17 Multivitamin [Poly-Vitamin] 1 each GT HS 04/25/17 Phenobarbital 45 mg GT BID 04/25/17 Diazepam Rectal Gel [Diastat 7.5 mg MA PRN PRN 05/23/18 Rectal Gel -] Protein Supplement [Promod] 1,190 ml GT DAILY 05/23/18 Budesonide [Pulmicort 0.25 mg 1 neb IH BID 02/05/19 Nebulizer -] Fluticasone Prop 0.05% Nasal 2 spray NS AM 02/05/19 [Flonase -] Magnesium Hydrox 2400MG/30Ml [Milk 20 ml GT BID 02/05/19 of Magnesia -] Albuterol 2.5/Ipratropium 0.5 1 neb IH QID PRN #30 neb 02/14/19 [Duoneb -] Sodium Chloride/Aloe Vera [[place] 22 ml NS BID 06/01/19 Saline Nasal Gel Plain] Bisacodyl 10 mg RC PRN PRN 11/22/19 Diphenhydramine [Benadryl 12.5 25 mg PO Q6H PRN 11/22/19 MG/5 ML Oral Solution -] Famotidine 10 mg PO BID 11/22/19 Lactobacillus Acidophilus 1 each PO HS 11/22/19 [Acidophilus] Simethicone Liquid [Mylicon Liquid 40 mg PO PRN PRN 11/22/19 -] Docusate Liquid [Colace Liquid -] 100 mg GT BID ud 11/29/19 Microbiology 01/20/20 09:40 Blood - Peripheral Venous Blood Culture - Preliminary NO GROWTH OBTAINED AFTER 72 HOURS, INCUBATION TO CONTINUE FOR 2 DAYS. 01/20/20 09:50 Blood - Peripheral Venous Blood Culture - Preliminary NO GROWTH OBTAINED AFTER 72 HOURS, INCUBATION TO CONTINUE FOR 2 DAYS. 01/21/20 08:00 Sputum - Oropharynx Suctioned Sputum Gram Stain - Final 01/21/20 08:00 Sputum - Oropharynx Suctioned Sputum Sputum Culture - Preliminary Gram Negative Zeb Presumptive Ps Aeruginosa Gram Negative Zeb#2 01/21/20 08:00 Urine - Urine - Catheterized Urine Culture - Final NO GROWTH OBTAINED 01/16/20 23:44 Sputum - Oropharynx Suctioned Sputum Gram Stain - Final 01/16/20 23:44 Sputum - Oropharynx Suctioned Sputum Sputum Culture - Final Pseudomonas Aeruginosa 01/13/20 12:24 Blood - Peripheral Venous Blood Culture - Final NO GROWTH AFTER 5 DAYS INCUBATION 01/13/20 12:24 Blood - Peripheral Venous Blood Culture - Final NO GROWTH AFTER 5 DAYS INCUBATION 01/14/20 01:15 Urine - Urine Clean Catch Urine Culture - Final NO GROWTH OBTAINED 01/14/20 01:15 Urine For Antigen Detection Legionella Antigen - Final 01/14/20 01:15 Urine For Antigen Detection Streptococcus pneumoniae Antigen (M - Final US revealed no gallstones; no intrahepatic duct dilation ASSESSMENT AND PLAN: This patient is a 24yom with a PMHx of Cerebral Palsy, epilespsy, herpes encephalitis, GERD, Aspiration pneumonia, Dysphagia s/p G-tube, presents to ED from [facility] facility with hypoxia and respiratory distress found to be saturating in the high 70's low 80's patient was found to have aspiration PNA with moderate stool impaction. # sepsis due to aspiration PNA , day #10 of zosyn , continue on Bipap, NPO for now, since re-aspirated , continue to elevate HOB to 45 #Ileus bowel regimen continue to monitor , repeat abdominal xray in am #Transaminitis monitor :improved #hx of Seizures s/p seizure: continue home meds, ordered diastat prn 7.5mg prn DVT Px: lovenox hold Tube feed Promote 1.5mg cbc repeat in am
[2020-01-23] MEDS: cloBAZam 10 MG TABLET GT SCH (21:58)
[2020-01-24] MEDS: diazePAM RECTAL GEL 7.5 MG KIT (PRE-CALIBRATED) RC PRN (02:59)
[2020-01-24] MEDS: ACETAMINOPHEN 325 MG TABLET (FP) NR PRN (03:20)
--- NOTE | 2020-01-24 03:36 | RAPID ---
Physical Examination Vital Signs: Vital Signs 122/49 P126 O2 96 RR 50s (per raid instructions, not documented) Temperature 98.1 F 01/24/20 02:00 Pulse Rate 94 H 01/24/20 02:00 Respiratory Rate 27 H 01/24/20 02:00 Blood Pressure 119/76 01/24/20 02:00 O2 Sat by Pulse Oximetry (%) 98 01/24/20 02:00 Rapid response was called at 3.30am, team responded immediately. Called due to tachypnea, tachycardia. Patient is on BIPAP and NPO - gave him one bag 42cc/h LR General: lying in bed, cerebral palsy Labs: CBC, BMP 01/23/20 07:40 01/23/20 07:40
[2020-01-24] MEDS ORDERED: LACTATED RINGERS SOLUTION 1,000 ML/1,000 ML INFUS.BAG IV SCH (03:45)
--- NOTE | 2020-01-24 03:50 | RAPID ---
Physical Examination Vital Signs: Vital Signs Temperature 98.1 F 01/24/20 02:00 Pulse Rate 94 H 01/24/20 02:00 Respiratory Rate 27 H 01/24/20 02:00 Blood Pressure 119/76 01/24/20 02:00 O2 Sat by Pulse Oximetry (%) 98 01/24/20 02:00 Constitutional: Yes: No Distress Cardiovascular: Yes: Tachycardia. No: Murmur Respiratory: Yes: Other (Decreased breath sounds bilaterally) Musculoskeletal: Yes: Other (Tremors when arm moved) Labs: CBC, BMP 01/23/20 07:40 01/23/20 07:40 Rapid Response - Rapid Response Assessment: Rapid response was called at 3:32am and the team responded immediately. The rapid response was called due to tachypnea, tachycardia, and tremors. The nurse gave diazepam about 25 minutes before the rapid response. The patient also had a fever of 101.6F, and was given Tylenol. Patient is on BIPAP and is NPO - gave him one bag 42cc/h LR. Blood cultures, Urine culture, U/A, and CXR ordered. Vitals: 114bpm (88bpm about 10 minutes later), 122/49, 96% on BiPap, BiPap says 23 breaths per minute) General: lying in bed in no acute distress, cerebral palsy appearance with rocker bottom feet Lungs: Decreased breath sounds bilaterally Heart: Tachycardic. No murmurs auscultated. No peripheral edema
[2020-01-24] MEDS: clonazePAM 0.5 MG TABLET GT SCH ×3 (06:23→21:48)
[2020-01-24] MEDS: BETHANECHOL CHLORIDE 25 MG TABLET PO SCH ×3 (06:23→21:49)
[2020-01-24 08:43] LABS: EPI CELLS 18 /uL (0-25.1); HYALINE CASTS 2 /uL (0-3.1); PH,URINE >= 9.0 (5.0-8.0); URINE APPEARANCE CLEAR; URINE BACTERIA 7 /uL (0-1359); URINE BILIRUBIN NEGATIVE (NEGATIVE); URINE COLOR DK YELLOW; URINE GLUCOSE (UA) NEGATIVE (NEGATIVE); URINE KETONE NEGATIVE (NEGATIVE); URINE LEUK ESTERASE TRACE (NEGATIVE); URINE NITRITE NEGATIVE (NEGATIVE); URINE PROTEIN 1+ (NEGATIVE); URINE RBC 2756 /uL (0-23.9); URINE WBC 52 /uL (0-25.8)
[2020-01-24] MEDS: BUDESONIDE 0.25 MG/2ML INH SUSP VIAL NEB SCH ×2 (08:45→20:30)
[2020-01-24 09:05] LABS: HEMATOCRIT 32.7 % (35.4-49); HEMOGLOBIN 11.3 GM/dL (11.7-16.9); MCH 35.1 pg (25.7-33.7); MCHC 34.6 g/dl (32.0-35.9); MEAN CELL VOLUME 101.4 fl (80-96); MEAN PLT VOLUME 9.3 fl (7.5-11.1); PLATELET COUNT 244 K/MM3 (134-434); RBC 3.23 M/mm3 (4.00-5.60); RDW 15.1 % (11.9-15.9); WHITE BLOOD COUNT 5.3 K/mm3 (4.0-10.0)
[2020-01-24 09:37] LABS: BLOOD UREA NITROGEN 5.5 mg/dL (7-18); CALCIUM 8.9 mg/dL (8.5-10.1); CREATININE 0.5 mg/dL (0.55-1.3)
[2020-01-24] MEDS: PHENobarbital 20 MG/5 ML UNIT-DOSE CUP GT SCH ×2 (09:55→21:48)
[2020-01-24] MEDS: ENOXAPARIN NA (PORCINE) 40 MG/0.4 ML DISP.SYRIN SQ SCH (09:56)
[2020-01-24] MEDS: lamoTRIgine 100 MG TABLET PO SCH ×2 (09:57→21:48)
[2020-01-24] MEDS: TAMSULOSIN HCL 0.4 MG CAP PO SCH (09:57)
[2020-01-24] MEDS: DOCUSATE NA 100 MG/10 ML UNIT-DOSE CUPS GT SCH ×2 (09:58→21:48)
[2020-01-24] MEDS: ACYCLOVIR 200 MG/5 ML LIQUID GT SCH ×2 (09:59→21:49)
--- NOTE | 2020-01-24 10:51 | PN ---
Progress Note, Physician History of Present Illness: PULMONARY EARLIER EVENTS NOTED, PT CURRENTLY SLEEPING ON 100%NRM,O2 SAT 97% - Current Medication List Current Medications: Active Medications Acetaminophen (Tylenol -) 650 mg NR Q6H PRN PRN Reason: Fever Or Pain Last Admin: 01/24/20 03:20 Dose: 650 mg Documented by: Acyclovir (Zovirax Oral Suspension -) 400 mg GT BID [facility] Last Admin: 01/24/20 09:59 Dose: 400 mg Documented by: Albuterol/Ipratropium (Duoneb -) 1 amp NEB QID PRN PRN Reason: WHEEZING Last Admin: 01/22/20 20:45 Dose: 1 amp Documented by: Bethanechol Chloride (Urecholine -) 25 mg PO TID [facility] Last Admin: 01/24/20 06:23 Dose: 25 mg Documented by: Bisacodyl (Dulcolax Suppository -) 10 mg RC PRN PRN PRN Reason: CONSTIPATION Last Admin: 01/22/20 09:59 Dose: 10 mg Documented by: Budesonide (Pulmicort 0.25 Mg Nebulizer -) 1 amp NEB RBID [facility] Last Admin: 01/24/20 08:45 Dose: 1 amp Documented by: Clobazam (Onfi -) 10 mg GT HS [facility] Last Admin: 01/23/20 21:58 Dose: 10 mg Documented by: Clonazepam (Klonopin -) 0.5 mg GT TID [facility] Last Admin: 01/24/20 06:23 Dose: 0.5 mg Documented by: Diazepam (Diastat Rectal Gel 7.5 Mg) 7.5 mg RC DAILY PRN PRN Reason: AGITATION Last Admin: 01/24/20 02:59 Dose: 7.5 mg Documented by: Docusate Sodium (Colace Liquid -) 100 mg GT BID [facility] Last Admin: 01/24/20 09:58 Dose: 100 mg Documented by: Enoxaparin Sodium (Lovenox -) 40 mg SQ DAILY [facility] Last Admin: 01/24/20 09:56 Dose: 40 mg Documented by: Lactated Ringer's (Lactated Ringers Solution) 1,000 ml in 1,000 mls @ 42 mls/hr IV ASDIR [facility] Stop: 01/25/20 03:34 Last Admin: 01/24/20 04:17 Dose: 42 mls/hr Documented by: Lamotrigine (Lamictal -) 200 mg PO BID [facility] Last Admin: 01/24/20 09:57 Dose: 200 mg Documented by: Phenobarbital (Phenobarbital Liquid -) 60 mg GT BID [facility] Last Admin: 01/24/20 09:55 Dose: 60 mg Documented by: Tamsulosin HCl (Flomax -) 0.4 mg PO DAILY@0830 [facility] Last Admin: 01/24/20 09:57 Dose: Not Given Documented by: - Objective Vital Signs: Vital Signs Temperature 99.0 F 01/24/20 06:00 Pulse Rate 64 01/24/20 06:00 Respiratory Rate 20 01/24/20 06:00 Blood Pressure 109/58 L 01/24/20 06:00 O2 Sat by Pulse Oximetry (%) 97 01/24/20 09:04 Constitutional: Yes: Calm, Thin Eyes: Yes: WNL HENT: Yes: WNL Neck: Yes: WNL Cardiovascular: Yes: Regular Rate and Rhythm, S1, S2 Respiratory: Yes: Rhonchi (FEW SCATTERED RHONCHI) Gastrointestinal: Yes: Normal Bowel Sounds, Soft Extremities: Yes: Shortened, Other (CONTRACTED) Labs: CBC, BMP 01/24/20 08:20 01/24/20 08:20 INR, PTT INR 1.17 (0.83-1.09) H 01/19/20 09:23 Problem List - Problems (1) Abnormal LFTs Code(s): R94.5 - ABNORMAL RESULTS OF LIVER FUNCTION STUDIES (2) History of encephalitis Code(s): Z86.61 - PERSONAL HISTORY OF INFECTIONS OF THE CENTRAL NERVOUS SYSTEM (3) Hypoxia Code(s): R09.02 - HYPOXEMIA (4) Pneumonia Code(s): J18.9 - PNEUMONIA, UNSPECIFIED ORGANISM (5) Sepsis Code(s): A41.9 - SEPSIS, UNSPECIFIED ORGANISM Qualifiers: Sepsis type: sepsis due to unspecified organism Sepsis acute organ dysfunction status: unspecified Qualified Code(s): A41.9 - Sepsis, unspecified organism (6) Acute hypoxemic respiratory failure Code(s): J96.01 - ACUTE RESPIRATORY FAILURE WITH HYPOXIA (7) Epilepsy Code(s): G40.909 - EPILEPSY, UNSP, NOT INTRACTABLE, WITHOUT STATUS EPILEPTICUS (8) Hypotension Code(s): I95.9 - HYPOTENSION, UNSPECIFIED (9) Profound mental retardation Code(s): F73 - PROFOUND INTELLECTUAL DISABILITIES (10) Aspiration pneumonia Code(s): J69.0 - PNEUMONITIS DUE TO INHALATION OF FOOD AND VOMIT Assessment/Plan ASSESS: -GROSS ILEUS/OLGIVIE'S SYNDROME -RECURRENT ASP PNA -DYSPHAGIA -CP -S/P SZ -CHRONIC NIPPV DEPENDANT -GERD -HERPES ENCEPHALITIS PLAN: -NPO -Aggressive BR -Titrate FiO2 for SaO2 >92% -BIPAP (patient is apparently BIPAP dependent at [place]) -Continue ABX per ID -IVFs -Continue home medications for seizure/encephalitis -DVT ppx -GI ppx (GERD) -Aspiration precautions DR VILLALTA
--- NOTE | 2020-01-24 16:19 | PN ---
Progress Note (short form) - Note Progress Note: fintermittent fevers esqueda just removed Vital Signs Period Temp Pulse Resp BP Sys/Linares Pulse Ox Last 24 Hr 98.1 F-101.6 F 61-153 20-52 98-124/44-84 95-100 cor-rrr lungs clear abd soft,GT ext no edema CBC, BMP 01/24/20 08:20 01/24/20 08:20 Microbiology 01/21/20 08:00 Sputum - Oropharynx Suctioned Sputum Gram Stain - Final 01/21/20 08:00 Sputum - Oropharynx Suctioned Sputum Sputum Culture - Preliminary Escherichia Coli Pseudomonas Aeruginosa Citrobacter Koseri 01/20/20 09:40 Blood - Peripheral Venous Blood Culture - Preliminary NO GROWTH OBTAINED AFTER 96 HOURS, INCUBATION TO CONTINUE FOR 1 DAYS. 01/20/20 09:50 Blood - Peripheral Venous Blood Culture - Preliminary NO GROWTH OBTAINED AFTER 96 HOURS, INCUBATION TO CONTINUE FOR 1 DAYS. 01/22/20 15:37 Blood - Peripheral Venous Blood Culture - Preliminary NO GROWTH OBTAINED AFTER 24 HOURS, INCUBATION TO CONTINUE FOR 4 DAYS. 01/22/20 15:45 Blood - Peripheral Venous Blood Culture - Preliminary NO GROWTH OBTAINED AFTER 24 HOURS, INCUBATION TO CONTINUE FOR 4 DAYS. 01/21/20 08:00 Urine - Urine - Catheterized Urine Culture - Final NO GROWTH OBTAINED 01/16/20 23:44 Sputum - Oropharynx Suctioned Sputum Gram Stain - Final 01/16/20 23:44 Sputum - Oropharynx Suctioned Sputum Sputum Culture - Final Pseudomonas Aeruginosa 01/13/20 12:24 Blood - Peripheral Venous Blood Culture - Final NO GROWTH AFTER 5 DAYS INCUBATION 01/13/20 12:24 Blood - Peripheral Venous Blood Culture - Final NO GROWTH AFTER 5 DAYS INCUBATION 01/14/20 01:15 Urine - Urine Clean Catch Urine Culture - Final NO GROWTH OBTAINED 01/14/20 01:15 Urine For Antigen Detection Legionella Antigen - Final 01/14/20 01:15 Urine For Antigen Detection Streptococcus pneumoniae Antigen (M - Final a/p recurrent fevers- chest ct reviewed- no reading but looks much imrpoved urinary retentionfoley just removed aspiration pneumonia day #10 zosyn stool impaction- improved abnormal LFTS-resolving ?fevers due to seizures duplex legs r/o dvt no diarrhea d/w hospitalist consider neurology f/u Problem List - Problems (1) Hypoxia Code(s): R09.02 - HYPOXEMIA (2) Pneumonia Code(s): J18.9 - PNEUMONIA, UNSPECIFIED ORGANISM (3) Fecal impaction Code(s): K56.41 - FECAL IMPACTION (4) Abnormal LFTs Code(s): R94.5 - ABNORMAL RESULTS OF LIVER FUNCTION STUDIES (5) Seizure Code(s): R56.9 - UNSPECIFIED CONVULSIONS (6) History of encephalitis Code(s): Z86.61 - PERSONAL HISTORY OF INFECTIONS OF THE CENTRAL NERVOUS SYSTEM
--- NOTE | 2020-01-24 16:27 | PN ---
Physical Exam: SUBJECTIVE: Patient seen and examined. Rapid response called overnight for tremulousness, T 101.6, tachypnea and tachycardia. Given rectal diazepam, recultured, did CXR. Tremors resolved. OBJECTIVE: Vital Signs Period Temp Pulse Resp BP Sys/Linares Pulse Ox Last 24 Hr 98.1 F-101.6 F 61-153 20-52 98-124/44-84 95-100 GENERAL: Somnolent, but arousable. No acute distress. HEENT: Microcephaly. Atraumatic. PERRL, dry mucous membranes. LUNGS: decreased breath sounds at bases HEART: RRR, normal S1 and S2 without murmur ABDOMEN: Distended, nontender to palpation, G-tube in place. EXTREMITIES: warm, well-perfused, contracted. No edema SKIN: Warm, dry. : Esqueda in place. Sediments visualized CBC, BMP 01/24/20 08:20 01/24/20 08:20 Active Medications Acetaminophen (Tylenol -) 650 mg NR Q6H PRN PRN Reason: Fever Or Pain Last Admin: 01/24/20 03:20 Dose: 650 mg Documented by: Acyclovir (Zovirax Oral Suspension -) 400 mg GT BID [facility] Last Admin: 01/24/20 09:59 Dose: 400 mg Documented by: Albuterol/Ipratropium (Duoneb -) 1 amp NEB QID PRN PRN Reason: WHEEZING Last Admin: 01/22/20 20:45 Dose: 1 amp Documented by: Bethanechol Chloride (Urecholine -) 25 mg PO TID [facility] Last Admin: 01/24/20 16:05 Dose: 25 mg Documented by: Bisacodyl (Dulcolax Suppository -) 10 mg RC PRN PRN PRN Reason: CONSTIPATION Last Admin: 01/22/20 09:59 Dose: 10 mg Documented by: Budesonide (Pulmicort 0.25 Mg Nebulizer -) 1 amp NEB RBID [facility] Last Admin: 01/24/20 08:45 Dose: 1 amp Documented by: Clobazam (Onfi -) 10 mg GT HS [facility] Last Admin: 01/23/20 21:58 Dose: 10 mg Documented by: Clonazepam (Klonopin -) 0.5 mg GT TID [facility] Last Admin: 01/24/20 14:40 Dose: 0.5 mg Documented by: Diazepam (Diastat Rectal Gel 7.5 Mg) 7.5 mg RC DAILY PRN PRN Reason: AGITATION Last Admin: 01/24/20 02:59 Dose: 7.5 mg Documented by: Docusate Sodium (Colace Liquid -) 100 mg GT BID [facility] Last Admin: 01/24/20 09:58 Dose: 100 mg Documented by: Enoxaparin Sodium (Lovenox -) 40 mg SQ DAILY [facility] Last Admin: 01/24/20 09:56 Dose: 40 mg Documented by: Lactated Ringer's (Lactated Ringers Solution) 1,000 ml in 1,000 mls @ 42 mls/hr IV ASDIR [facility] Stop: 01/25/20 03:34 Last Admin: 01/24/20 04:17 Dose: 42 mls/hr Documented by: Piperacillin Sod/Tazobactam (Sod 3.375 gm/ Dextrose) 50 mls @ 100 mls/hr IVPB Q8H-IV [facility]; Protocol Last Admin: 01/24/20 18:30 Dose: 100 mls/hr Documented by: Lamotrigine (Lamictal -) 200 mg PO BID [facility] Last Admin: 01/24/20 09:57 Dose: 200 mg Documented by: Phenobarbital (Phenobarbital Liquid -) 60 mg GT BID [facility] Last Admin: 01/24/20 09:55 Dose: 60 mg Documented by: Tamsulosin HCl (Flomax -) 0.4 mg PO DAILY@0830 [facility] Last Admin: 01/24/20 09:57 Dose: Not Given Documented by: CT A/P; 01/12 Large volume stool impaction up to the level of the sigmoid colon with associated gaseous distention of large bowel proximally. This finding is similar to prior study with slightly greater distention at the level of the sigmoid. If further imaging evaluation of bowel is clinically desired, recommend enteric contrast administration on follow-up. No evidence of pneumoperitoneum. Refer to concurrent chest CT report for complete findings above the diaphragm, including discussion of suspected aspiration pneumonia. KUB; 01/16 Single view of the abdomen again reveals distended bowel mainly involving colon rather than small bowel. The cecum or sigmoid appears distended over the lower LS spine and upper sacrum. There is hand artifact in the right upper quadrant and a G-tube with some questionable material in the stomach. Free air or pneumatosis is not seen. There is no air or stool seen in the rectum. There is a dense left base. There is evidence of bilateral hip surgeries. Correlation and follow-up recommended. For more complete evaluation, CT may be of help. CXR; 01/19 Single view of the chest has been submitted. There is a weak inspiration with resultant prominent mediastinum, central crowding and some questionable atelectasis or infiltrate at the left base. The angles are sharp and the soft tissues are intact. There may be some old rib fractures. There is generalized abdominal distention. Since 01/17/2020, increased lung markings have diminished. The retrocardiac density has diminished as well. The abdominal distention persists. Again noted is a weak inspiration. CT chest 01/24/2020 There is interval significantly better evaluation of the lower lobes. There are increased interstitial and faint airspace opacities mainly in the left upper lobe suggestive of pneumonic infiltrates. Residual filling defects in the left lower lobe bronchi suggestive of mucous plugs versus residual aspiration. Enlarged left hilum is again seen and difficult to assess on this examination due to lack of intravenous contrast ASSESSMENT/PLAN: 24 year old M from [facility], with H cerebral palsy, herpes encephalitis, GERD, aspiration PNA, dysphagia (s/p G tube) presented to ED with hypoxia and respiratory distress. Pt was in ICU due to hypoxia and hypotension and downgraded to med-surg. Was placed on BiPAP with good response. Pt is currently admitted for aspiration PNA and ileus. Sepsis secondary to aspiration PNA - CT chest, CXR as above. -c/w zosyn (started 01/13-01/21), total 9 days. C/w Flagyl 500 q8H (started 01/19- 01/21), total is 3 days. -ID consulted. Recommended d/c abx and observe. - Pulmonology consulted. Recommended c/w abx, wean supplemental O2 as tolerated. C/w bipap. -c/w budesonide, duonebs -Cultures: -01/23 Bcx pending, Ucx pending -01/21 Bcx negative -01/20 Ucx negative. Sputum cx E Coli, Pseudomonas, Citrobacter -01/19 Bcx negative. -01/15 Sputum culture grew Pseudomonas. -01/13 Ucx negative. Urine legionella/strep pneumo negative. -01/12 Bcx negative. -supplemental O2, maintain SaO2 >95% -aspiration precautions -COVID-19 PCR negative - keep NPO - f/u repeat CXR, ABG - c/w acetaminophen 650mg NR q6H PRN - CT chest as above - duplex b/l legs r/o DVT -f/u C diff Hypokalemia, hypomagnesemia, improved - f/u electrolytes and replete as necessary Ileus, stool impaction -CT abd as above. -c/w bowel regimen Seizures - Neuro consulted. Recommended increase phenobarbital 60mg BID GT. C/w clonazepam 0.5 TID, clobazam 10mg qHS, lamotrigine 200mg q12H. D/c baclofen and observe. -F/u further neuro recs - c/w diazepam MD 7.5 qD PRN. -RR called 01/21 due to increased tremulousness, febrile at 101.5F. Given 1mg Ativan IM, 0.5mg Ativan IV, Ofirmev 750mg once. Improved. F/u repeat CXR - Discuss w/ uAsten about RIGHT OF WAY MAN shunt? Hematuria, Urinary retention - D/c'ed esqueda - Urology consulted. Likely neurogenic bladder dysfunction. C/w urecholine and flomax. -Flomax cannot be placed through PEG. - UA 3+ blood - continue to monitor Hx of herpes encephalitis -c/w acyclovir 400 BID Transaminitis, improved -continue to monitor LFT -US as above. No gallstones, no intrahepatic duct dilation. GERD -consider PPI, however, h/o hypomagnesemia FEN - No standing fluids - monitor and replete lytes - slow tube feeds Ppx -DVT: Lovenox Called Austen: tremors baseline for pt when stimulated (calling his name, moving him). Tremors last 1 minute each and happen daily. No medication given at facility. Dispo: continue to monitor on m/s Visit type - Emergency Visit Emergency Visit: Yes ED Registration Date: 01/13/20 Care time: The patient presented to the Emergency Department on the above date and was hospitalized for further evaluation of their emergent condition. - New Patient This patient is new to me today: No - Critical Care Critical Care patient: No ATTENDING PHYSICIAN STATEMENT I saw and evaluated the patient. I reviewed the resident's note and discussed the case with the resident. I agree with the resident's findings and plan as documented. SUBJECTIVE: OBJECTIVE: ASSESSMENT AND PLAN:
[2020-01-24] MEDS ORDERED: PIPERACILLIN/TAZOB 3.375 GM 3.375 GM in DEXTROSE 5%-WATER - 50 ML IVPB SCH (17:00)
[2020-01-24] MEDS ORDERED: PIPERACILLIN/TAZOBACTAM 3.375 GM VIAL IVPB ONE (18:25)
[2020-01-24] MEDS ORDERED: DEXTROSE 5%-WATER - 50 ML IVPB ONE (18:26)
--- NOTE | 2020-01-24 20:01 | PN ---
Teaching Attending Note Name of Resident: Evie Wolfe ATTENDING PHYSICIAN STATEMENT I saw and evaluated the patient. I reviewed the resident's note and discussed the case with the resident. I agree with the resident's findings and plan as documented. SUBJECTIVE: no events this am. has VP [employer] last night OBJECTIVE: NAD. sleeping , venti mask on CV: RRR Lungs: clear bilaterally, slightly decreased breath sounds at L base Ext : no edema , muscular atrophy . R heal blister Abd: PEG in , with intact surrounding skin with no erythema , no tenderness, NL BS . ND. no skin breakdown on sacral area ASSESSMENT AND PLAN: 24 y/o young man with h/o herpetic meningioencephalitis, MR, seizures , recurrent aspiration PNA , who is being treated for PNA 1- PNA, likely aspiration 2- s/p acute hypoxic resp failure 3- recurrent seizures. h/o seizure DO 4- s/p fecal impaction plan: - Austen called and reported that patient usyually has jerking movements whenever stimulated or moved at base line - cont current seizure meds - recurrent fever , not sure of etiology. no decub ulcers, CT with no pleural effusion and PNA is better . no diarrhea . - check US of LEs - check c diff if diarrhea - will call austen regarding ? EXECUTIVE ASSISTANT shunt - d/w ID , hold off Abx at this time - resume TF through PEG - dc IVF HLOC
[2020-01-24] MEDS: ALBUTEROL SO4 2.5/IPRATROPIUM 0.5 INH SOL 3 ML VIAL.NEB. NEB PRN (21:34)
[2020-01-24] MEDS ORDERED: PT OWN MED DRAWER 7, Y5N ONE (21:43)
[2020-01-24] MEDS: cloBAZam 10 MG TABLET GT SCH (21:50)
[2020-01-25] MEDS: BETHANECHOL CHLORIDE 25 MG TABLET PO SCH ×3 (05:03→22:09)
[2020-01-25] MEDS: clonazePAM 0.5 MG TABLET GT SCH ×3 (05:03→22:07)
[2020-01-25] MEDS ORDERED: PT OWN MED DRAWER 7, Y5N ONE (05:30)
[2020-01-25] MEDS: ACETAMINOPHEN 325 MG TABLET (FP) NR PRN (06:31)
[2020-01-25] MEDS ORDERED: BUDESONIDE 0.5 MG/2 ML INH SUSP VIAL NEB ONE (08:00)
[2020-01-25] MEDS: BUDESONIDE 0.25 MG/2ML INH SUSP VIAL NEB SCH ×2 (08:00→20:45)
[2020-01-25] MEDS: TAMSULOSIN HCL 0.4 MG CAP PO SCH (08:48)
[2020-01-25 09:02] LABS: BASO % 0.4 % (0-2.0); EOS % 0.8 % (0-4.5); HEMATOCRIT 35.4 % (35.4-49); HEMOGLOBIN 12.2 GM/dL (11.7-16.9); LYMPH % 12.2 % (8-40); MCH 34.9 pg (25.7-33.7); MCHC 34.4 g/dl (32.0-35.9); MEAN CELL VOLUME 101.2 fl (80-96); MONO % 6.3 % (3.8-10.2); NEUT % 80.3 % (42.8-82.8); PLATELET COUNT 266 K/MM3 (134-434); WHITE BLOOD COUNT 13.1 K/mm3 (4.0-10.0)
[2020-01-25 09:23] LABS: BLOOD UREA NITROGEN 6.4 mg/dL (7-18); CALCIUM 8.6 mg/dL (8.5-10.1); CREATININE 0.6 mg/dL (0.55-1.3); POTASSIUM 4.1 mmol/L (3.5-5.1)
[2020-01-25] MEDS: DOCUSATE NA 100 MG/10 ML UNIT-DOSE CUPS GT SCH ×2 (10:00→22:03)
--- NOTE | 2020-01-25 10:09 | PN ---
Progress Note, Physician History of Present Illness: pulmonary sleeping on vm -resp distress - Current Medication List Current Medications: Active Medications Acetaminophen (Tylenol -) 650 mg NR Q6H PRN PRN Reason: Fever Or Pain Last Admin: 01/25/20 06:31 Dose: 650 mg Documented by: Acyclovir (Zovirax Oral Suspension -) 400 mg GT BID [facility] Last Admin: 01/24/20 21:49 Dose: 400 mg Documented by: Albuterol/Ipratropium (Duoneb -) 1 amp NEB QID PRN PRN Reason: WHEEZING Last Admin: 01/24/20 21:34 Dose: 1 amp Documented by: Bethanechol Chloride (Urecholine -) 25 mg PO TID [facility] Last Admin: 01/25/20 05:03 Dose: 25 mg Documented by: Bisacodyl (Dulcolax Suppository -) 10 mg RC PRN PRN PRN Reason: CONSTIPATION Last Admin: 01/22/20 09:59 Dose: 10 mg Documented by: Budesonide (Pulmicort 0.25 Mg Nebulizer -) 1 amp NEB RBID [facility] Last Admin: 01/25/20 08:00 Dose: 1 amp Documented by: Clobazam (Onfi -) 10 mg GT HS [facility] Last Admin: 01/24/20 21:50 Dose: 10 mg Documented by: Clonazepam (Klonopin -) 0.5 mg GT TID [facility] Last Admin: 01/25/20 05:03 Dose: 0.5 mg Documented by: Diazepam (Diastat Rectal Gel 7.5 Mg) 7.5 mg RC DAILY PRN PRN Reason: AGITATION Last Admin: 01/24/20 02:59 Dose: 7.5 mg Documented by: Docusate Sodium (Colace Liquid -) 100 mg GT BID [facility] Last Admin: 01/24/20 21:48 Dose: 100 mg Documented by: Enoxaparin Sodium (Lovenox -) 40 mg SQ DAILY [facility] Last Admin: 01/24/20 09:56 Dose: 40 mg Documented by: Lamotrigine (Lamictal -) 200 mg PO BID [facility] Last Admin: 01/24/20 21:48 Dose: 200 mg Documented by: Phenobarbital (Phenobarbital Liquid -) 60 mg GT BID [facility] Last Admin: 01/24/20 21:48 Dose: 60 mg Documented by: Tamsulosin HCl (Flomax -) 0.4 mg PO DAILY@0830 [facility] Last Admin: 01/25/20 08:48 Dose: Not Given Documented by: - Objective Vital Signs: Vital Signs Temperature 99.6 F 01/25/20 06:00 Pulse Rate 86 01/25/20 06:00 Respiratory Rate 20 01/25/20 06:00 Blood Pressure 111/51 L 01/25/20 06:00 O2 Sat by Pulse Oximetry (%) 95 01/25/20 06:00 Constitutional: Yes: Thin, Other (sleeping) Eyes: Yes: WNL HENT: Yes: Other (microcephalic) Neck: Yes: WNL Cardiovascular: Yes: Regular Rate and Rhythm, S1, S2 Respiratory: Yes: Rhonchi (scattered rhonchi) Gastrointestinal: Yes: Normal Bowel Sounds, Soft Extremities: Yes: Shortened, Other (contracted) Edema: No Labs: CBC, BMP 01/25/20 07:50 01/25/20 07:50 INR, PTT INR 1.17 (0.83-1.09) H 01/19/20 09:23 - ....Imaging Cat Scan: Report Reviewed, Image Reviewed Problem List - Problems (1) Abnormal LFTs Code(s): R94.5 - ABNORMAL RESULTS OF LIVER FUNCTION STUDIES (2) History of encephalitis Code(s): Z86.61 - PERSONAL HISTORY OF INFECTIONS OF THE CENTRAL NERVOUS SYSTEM (3) Hypoxia Code(s): R09.02 - HYPOXEMIA (4) Pneumonia Code(s): J18.9 - PNEUMONIA, UNSPECIFIED ORGANISM (5) Sepsis Code(s): A41.9 - SEPSIS, UNSPECIFIED ORGANISM Qualifiers: Sepsis type: sepsis due to unspecified organism Sepsis acute organ dysfunction status: unspecified Qualified Code(s): A41.9 - Sepsis, unspecified organism (6) Acute hypoxemic respiratory failure Code(s): J96.01 - ACUTE RESPIRATORY FAILURE WITH HYPOXIA (7) Epilepsy Code(s): G40.909 - EPILEPSY, UNSP, NOT INTRACTABLE, WITHOUT STATUS EPILEPTICUS (8) Hypotension Code(s): I95.9 - HYPOTENSION, UNSPECIFIED (9) Profound mental retardation Code(s): F73 - PROFOUND INTELLECTUAL DISABILITIES (10) Aspiration pneumonia Code(s): J69.0 - PNEUMONITIS DUE TO INHALATION OF FOOD AND VOMIT Assessment/Plan ASSESS: -GROSS ILEUS/OLGIVIE'S SYNDROME -RECURRENT ASP PNA -DYSPHAGIA -CP -S/P SZ -CHRONIC NIPPV DEPENDANT -GERD -HERPES ENCEPHALITIS PLAN: -Aggressive BR -Titrate FiO2 for SaO2 >92% -BIPAP as needed -DVT ppx -GI ppx (GERD) -Aspiration precautions DR VILLALTA
[2020-01-25] MEDS: ENOXAPARIN NA (PORCINE) 40 MG/0.4 ML DISP.SYRIN SQ SCH (10:31)
[2020-01-25] MEDS: lamoTRIgine 100 MG TABLET PO SCH ×2 (10:31→22:07)
[2020-01-25] MEDS: PHENobarbital 20 MG/5 ML UNIT-DOSE CUP GT SCH ×2 (10:31→22:07)
[2020-01-25] MEDS: ACYCLOVIR 200 MG/5 ML LIQUID GT SCH ×2 (10:32→22:08)
--- NOTE | 2020-01-25 14:44 | PN ---
Progress Note (short form) - Note Progress Note: fevers trending down esqueda d/chiqui yesterday- will get bladder scan today to r/o urinary retention Vital Signs Period Temp Pulse Resp BP Sys/Linares Pulse Ox Last 24 Hr 99.1 F-99.6 F 61-115 20-20 98-111/44-53 94-100 cor-rrr lungs decreased bs at bases abd soft,nt +GT ext no edema duplex no dvt chest ct improved infiltrates, no effusion CBC, BMP 01/25/20 07:50 01/25/20 07:50 Microbiology 01/21/20 08:00 Sputum - Oropharynx Suctioned Sputum Gram Stain - Final 01/21/20 08:00 Sputum - Oropharynx Suctioned Sputum Sputum Culture - Final Escherichia Coli Pseudomonas Aeruginosa Citrobacter Koseri 01/20/20 09:40 Blood - Peripheral Venous Blood Culture - Final NO GROWTH AFTER 5 DAYS INCUBATION 01/20/20 09:50 Blood - Peripheral Venous Blood Culture - Final NO GROWTH AFTER 5 DAYS INCUBATION 01/24/20 06:20 Urine - Urine Esqueda Urine Culture - Final NO GROWTH OBTAINED 01/24/20 08:20 Blood - Peripheral Venous Blood Culture - Preliminary NO GROWTH OBTAINED AFTER 24 HOURS, INCUBATION TO CONTINUE FOR 4 DAYS. 01/24/20 08:20 Blood - Peripheral Venous Blood Culture - Preliminary NO GROWTH OBTAINED AFTER 24 HOURS, INCUBATION TO CONTINUE FOR 4 DAYS. 01/22/20 15:45 Blood - Peripheral Venous Blood Culture - Preliminary NO GROWTH OBTAINED AFTER 48 HOURS, INCUBATION TO CONTINUE FOR 3 DAYS. 01/22/20 15:37 Blood - Peripheral Venous Blood Culture - Preliminary NO GROWTH OBTAINED AFTER 48 HOURS, INCUBATION TO CONTINUE FOR 3 DAYS. 01/21/20 08:00 Urine - Urine - Catheterized Urine Culture - Final NO GROWTH OBTAINED 01/16/20 23:44 Sputum - Oropharynx Suctioned Sputum Gram Stain - Final 01/16/20 23:44 Sputum - Oropharynx Suctioned Sputum Sputum Culture - Final Pseudomonas Aeruginosa 01/13/20 12:24 Blood - Peripheral Venous Blood Culture - Final NO GROWTH AFTER 5 DAYS INCUBATION 01/13/20 12:24 Blood - Peripheral Venous Blood Culture - Final NO GROWTH AFTER 5 DAYS INCUBATION 01/14/20 01:15 Urine - Urine Clean Catch Urine Culture - Final NO GROWTH OBTAINED 01/14/20 01:15 Urine For Antigen Detection Legionella Antigen - Final 01/14/20 01:15 Urine For Antigen Detection Streptococcus pneumoniae Antigen (M - Final a/p recurrent fevers- chest ct reviewed- improved duplex negative bladder scan for urinary retention Problem List - Problems (1) Hypoxia Code(s): R09.02 - HYPOXEMIA (2) Pneumonia Code(s): J18.9 - PNEUMONIA, UNSPECIFIED ORGANISM (3) Fecal impaction Code(s): K56.41 - FECAL IMPACTION (4) Abnormal LFTs Code(s): R94.5 - ABNORMAL RESULTS OF LIVER FUNCTION STUDIES (5) Seizure Code(s): R56.9 - UNSPECIFIED CONVULSIONS (6) History of encephalitis Code(s): Z86.61 - PERSONAL HISTORY OF INFECTIONS OF THE CENTRAL NERVOUS SYSTEM
--- NOTE | 2020-01-25 15:21 | PN ---
Physical Exam: SUBJECTIVE: Patient seen and examined. No acute events overnight. OBJECTIVE: Vital Signs Period Temp Pulse Resp BP Sys/Linares Pulse Ox Last 24 Hr 99.1 F-99.6 F 61-115 20-20 98-111/44-53 94-100 GENERAL: Nonverbal. Not in acute distress. HEENT: Microcephaly. Atraumatic. Dry mucous membranes. LUNGS: decreased breath sounds at bases b/l HEART: RRR, normal S1 and S2 without murmur ABDOMEN: Soft, nontender to palpation, G-tube in place. Normoactive bowel sounds. EXTREMITIES: warm, well-perfused, contracted. No edema SKIN: Warm, dry. CBC, BMP 01/25/20 07:50 01/25/20 07:50 Active Medications Acetaminophen (Tylenol -) 650 mg NR Q6H PRN PRN Reason: Fever Or Pain Last Admin: 01/25/20 06:31 Dose: 650 mg Documented by: Acyclovir (Zovirax Oral Suspension -) 400 mg GT BID [facility] Last Admin: 01/25/20 10:32 Dose: 400 mg Documented by: Albuterol/Ipratropium (Duoneb -) 1 amp NEB QID PRN PRN Reason: WHEEZING Last Admin: 01/24/20 21:34 Dose: 1 amp Documented by: Bethanechol Chloride (Urecholine -) 25 mg PO TID [facility] Last Admin: 01/25/20 14:38 Dose: 25 mg Documented by: Bisacodyl (Dulcolax Suppository -) 10 mg RC PRN PRN PRN Reason: CONSTIPATION Last Admin: 01/22/20 09:59 Dose: 10 mg Documented by: Budesonide (Pulmicort 0.25 Mg Nebulizer -) 1 amp NEB RBID [facility] Last Admin: 01/25/20 08:00 Dose: 1 amp Documented by: Clobazam (Onfi -) 10 mg GT HS [facility] Last Admin: 01/24/20 21:50 Dose: 10 mg Documented by: Clonazepam (Klonopin -) 0.5 mg GT TID [facility] Last Admin: 01/25/20 14:38 Dose: 0.5 mg Documented by: Diazepam (Diastat Rectal Gel 7.5 Mg) 7.5 mg RC DAILY PRN PRN Reason: AGITATION Last Admin: 01/24/20 02:59 Dose: 7.5 mg Documented by: Docusate Sodium (Colace Liquid -) 100 mg GT BID [facility] Last Admin: 01/24/20 21:48 Dose: 100 mg Documented by: Enoxaparin Sodium (Lovenox -) 40 mg SQ DAILY [facility] Last Admin: 01/25/20 10:31 Dose: 40 mg Documented by: Lamotrigine (Lamictal -) 200 mg PO BID [facility] Last Admin: 01/25/20 10:31 Dose: 200 mg Documented by: Phenobarbital (Phenobarbital Liquid -) 60 mg GT BID [facility] Last Admin: 01/25/20 10:31 Dose: 60 mg Documented by: Tamsulosin HCl (Flomax -) 0.4 mg PO DAILY@0830 [facility] Last Admin: 01/25/20 08:48 Dose: Not Given Documented by: ASSESSMENT/PLAN: 24 year old M from [facility], with PMH cerebral palsy, herpes encephalitis, GERD, aspiration PNA, dysphagia (s/p G tube) presented to ED with hypoxia and respiratory distress. Pt was in ICU due to hypoxia and hypotension and downgraded to med-surg. Was placed on BiPAP with good response. Pt is currently admitted for aspiration PNA and ileus. Sepsis secondary to aspiration PNA -Was on zosyn (started 01/13-01/21), Flagyl 500 q8H (started 01/19-01/21). - Leukocytosis, continue to monitor -Repeat CT chest improved, CXR improved. - ID consulted. Pulmonology consulted. - Will monitor off abx for now. - Will c/w budesonide, duonebs. - Repeat Bcx negative thus far, Ucx negative - supplemental O2, maintain SaO2 >95%. Will wean as tolerated. BiPAP PRN. - aspiration precautions - c/w acetaminophen 650mg NR q6H PRN for fever Hypokalemia, hypomagnesemia, improved - f/u electrolytes and replete as necessary Ileus, stool impaction -improved -c/w bowel regimen Seizure disorder - Pt observed to have clonus - Neuro consulted. - will c/w phenobarbital 60mg BID GT, clonazepam 0.5 TID, clobazam 10mg qHS, l amotrigine 200mg q12H - c/w diazepam [place] 7.5 qD PRN. - Contacted [facility], no history of NEPHROLOGIST shunt Urinary retention, likely neurogenic bladder, improved - Urology consulted. - Will c/w urecholine - Flomax cannot be placed through PEG, thus pt not taking. - continue to monitor Hx of herpes encephalitis -c/w acyclovir 400 BID FEN - No standing fluids - monitor and replete lytes - slow tube feeds Ppx -DVT: Lovenox As per [facility]: tremors baseline for pt when stimulated (calling his name, moving him). Tremors last 1 minute each and happen daily. No medication given at facility. No h/o NEPHROLOGIST shunt. Dispo: continue to monitor on m/s Visit type - Emergency Visit Emergency Visit: Yes ED Registration Date: 01/13/20 Care time: The patient presented to the Emergency Department on the above date and was hospitalized for further evaluation of their emergent condition. - New Patient This patient is new to me today: No - Critical Care Critical Care patient: No ATTENDING PHYSICIAN STATEMENT I saw and evaluated the patient. I reviewed the resident's note and discussed the case with the resident. I agree with the resident's findings and plan as documented. SUBJECTIVE: OBJECTIVE: ASSESSMENT AND PLAN:
--- NOTE | 2020-01-25 18:38 | PN ---
Teaching Attending Note Name of Resident: Sweetie Cobb ATTENDING PHYSICIAN STATEMENT I saw and evaluated the patient. I reviewed the resident's note and discussed the case with the resident. I agree with the resident's findings and plan as documented. SUBJECTIVE: No events over night OBJECTIVE: NAD. sleeping , venti mask on CV: RRR Lungs: clear bilaterally anteriorly , slightly decreased breath sounds at L base Ext : no edema , muscular atrophy. R heal blister Abd: PEG in, with intact surrounding skin with no erythema but slight hyperpigmentation , no tenderness, NL BS . ND. no skin breakdown on sacral area ASSESSMENT AND PLAN: 24 y/o young man with h/o herpetic meningioencephalitis, MR, seizures , recurrent aspiration PNA , who is being treated for PNA 1- PNA, likely aspiration 2- s/p acute hypoxic resp failure 3- recurrent seizures. h/o seizure DO 4- s/p fecal impaction. plan: - Fever resolved. NO SANIPRACTIC PHYSICIAN shunt per conversation with [facility] team - monitor Off Abx - Us neg - cont TF through PEG HLOC
[2020-01-25] MEDS: cloBAZam 10 MG TABLET GT SCH (22:07)
[2020-01-26] MEDS: clonazePAM 0.5 MG TABLET GT SCH ×3 (05:44→21:58)
[2020-01-26] MEDS: BETHANECHOL CHLORIDE 25 MG TABLET PO SCH ×3 (05:44→22:00)
[2020-01-26] MEDS ORDERED: BUDESONIDE 0.5 MG/2 ML INH SUSP VIAL NEB ONE (07:40)
[2020-01-26] MEDS: TAMSULOSIN HCL 0.4 MG CAP PO SCH (08:52)
[2020-01-26 09:16] LABS: BASO % 0.7 % (0-2.0); EOS % 1.2 % (0-4.5); HEMOGLOBIN 12.4 GM/dL (11.7-16.9); LYMPH % 25.3 % (8-40); MCH 33.7 pg (25.7-33.7); MCHC 33.5 g/dl (32.0-35.9); MEAN CELL VOLUME 100.6 fl (80-96); MEAN PLT VOLUME 9.4 fl (7.5-11.1); MONO % 9.9 % (3.8-10.2); NEUT % 62.9 % (42.8-82.8); PLATELET COUNT 366 K/MM3 (134-434); RBC 3.67 M/mm3 (4.00-5.60); RDW 15.5 % (11.9-15.9); WHITE BLOOD COUNT 12.7 K/mm3 (4.0-10.0)
[2020-01-26] MEDS ORDERED: PT OWN MED DRAWER 7, Y5N ONE ×3 (09:37→21:19)
[2020-01-26 09:48] LABS: ALBUMIN 3.3 g/dl (3.4-5.0); BILIRUBIN,TOTAL 0.4 mg/dL (0.2-1); BLOOD UREA NITROGEN 9.3 mg/dL (7-18); CREATININE 0.6 mg/dL (0.55-1.3); POTASSIUM 4.2 mmol/L (3.5-5.1); TOT PROT 8.5 g/dl (6.4-8.2)
[2020-01-26] MEDS: ACYCLOVIR 200 MG/5 ML LIQUID GT SCH ×2 (10:21→22:01)
[2020-01-26] MEDS: lamoTRIgine 100 MG TABLET PO SCH ×2 (10:21→21:59)
[2020-01-26] MEDS: DOCUSATE NA 100 MG/10 ML UNIT-DOSE CUPS GT SCH ×2 (10:21→21:58)
[2020-01-26] MEDS: ENOXAPARIN NA (PORCINE) 40 MG/0.4 ML DISP.SYRIN SQ SCH (10:21)
[2020-01-26] MEDS: PHENobarbital 20 MG/5 ML UNIT-DOSE CUP GT SCH ×2 (10:21→21:59)
--- NOTE | 2020-01-26 13:10 | PN ---
Progress Note (short form) - Note Progress Note: NAD on RA. Saturation low 90's. Nonverbal. No acute events overnight. Intake & Output 01/23/20 01/24/20 01/25/20 01/26/20 23:59 23:59 23:59 23:59 Intake Total 2080 486 1580 0 Output Total 1050 1000 Balance 1030 -514 1580 0 Last Vital Signs Temp Pulse Resp BP Pulse Ox 98.8 F 78 30 H 114/75 95 01/26/20 10:33 01/26/20 12:22 01/26/20 10:33 01/26/20 10:33 01/26/20 12:22 Active Medications Acetaminophen (Tylenol -) 650 mg NR Q6H PRN PRN Reason: Fever Or Pain Last Admin: 01/25/20 06:31 Dose: 650 mg Documented by: Acyclovir (Zovirax Oral Suspension -) 400 mg GT BID [facility] Last Admin: 01/26/20 10:21 Dose: 400 mg Documented by: Albuterol/Ipratropium (Duoneb -) 1 amp NEB QID PRN PRN Reason: WHEEZING Last Admin: 01/24/20 21:34 Dose: 1 amp Documented by: Bethanechol Chloride (Urecholine -) 25 mg PO TID [facility] Last Admin: 01/26/20 05:44 Dose: 25 mg Documented by: Bisacodyl (Dulcolax Suppository -) 10 mg RC PRN PRN PRN Reason: CONSTIPATION Last Admin: 01/22/20 09:59 Dose: 10 mg Documented by: Budesonide (Pulmicort 0.25 Mg Nebulizer -) 1 amp NEB RBID [facility] Last Admin: 01/25/20 20:45 Dose: 1 amp Documented by: Clobazam (Onfi -) 10 mg GT HS [facility] Last Admin: 01/25/20 22:07 Dose: 10 mg Documented by: Clonazepam (Klonopin -) 0.5 mg GT TID [facility] Last Admin: 01/26/20 05:44 Dose: 0.5 mg Documented by: Diazepam (Diastat Rectal Gel 7.5 Mg) 7.5 mg RC DAILY PRN PRN Reason: AGITATION Last Admin: 01/24/20 02:59 Dose: 7.5 mg Documented by: Docusate Sodium (Colace Liquid -) 100 mg GT BID [facility] Last Admin: 01/26/20 10:21 Dose: 100 mg Documented by: Enoxaparin Sodium (Lovenox -) 40 mg SQ DAILY [facility] Last Admin: 01/26/20 10:21 Dose: 40 mg Documented by: Lamotrigine (Lamictal -) 200 mg PO BID [facility] Last Admin: 01/26/20 10:21 Dose: 200 mg Documented by: Phenobarbital (Phenobarbital Liquid -) 60 mg GT BID [facility] Last Admin: 01/26/20 10:21 Dose: 60 mg Documented by: Tamsulosin HCl (Flomax -) 0.4 mg PO DAILY@0830 [facility] Last Admin: 01/26/20 08:52 Dose: Not Given Documented by: Gen: NAD on RA, non-verbal Heart: RRR Lung: Scattered rhonchi, decreased breath sounds at the bases Abd: soft, nontender Ext: contracted Laboratory Results - last 24 hr 01/26/20 01/26/20 08:01 08:01 WBC 12.7 H RBC 3.67 L Hgb 12.4 Hct 37.0 MCV 100.6 H MCH 33.7 MCHC 33.5 RDW 15.5 Plt Count 366 D MPV 9.4 D Absolute Neuts (auto) 8.0 Neutrophils % 62.9 D Lymphocytes % 25.3 D Monocytes % 9.9 Eosinophils % 1.2 Basophils % 0.7 Nucleated RBC % 0 Sodium 140 Potassium 4.2 Chloride 103 Carbon Dioxide 31 Anion Gap 6 L BUN 9.3 Creatinine 0.6 Est GFR (CKD-EPI)AfAm 164.25 Est GFR (CKD-EPI)NonAf 141.72 Random Glucose 110 H Calcium 9.0 Total Bilirubin 0.4 AST 50 H ALT 58 Alkaline Phosphatase 193 H Total Protein 8.5 H Albumin 3.3 L A/P Acute on Chronic Hypoxic Respiratory Failure Pneumonia likely Aspiration Ileus Cerebral Palsy Seizure Disorder Mental Retardation Functional Quadriplegia - Complete antibiotics course - Supplemental O2 as needed - aspiration precautions - DVT prophylaxis - DC planning Dr Price
[2020-01-26] MEDS: ACETAMINOPHEN 325 MG TABLET (FP) NR PRN (14:52)
--- NOTE | 2020-01-26 15:24 | PN ---
Physical Exam: SUBJECTIVE: Patient seen and examined. No acute overnight events. Per nurse, was Was on BiPAP overnight. Currently on NC. OBJECTIVE: Vital Signs Period Temp Pulse Resp BP Sys/Linares Pulse Ox Last 24 Hr 97.8 F-99.7 F 78-101 20-30 101-148/60-91 90-99 GENERAL: Nonverbal. Not in acute distress. HEENT: Microcephaly. Atraumatic. Dry mucous membranes. On NC. LUNGS: decreased breath sounds at bases b/l HEART: RRR, normal S1 and S2 without murmur ABDOMEN: Soft, nontender to palpation, G-tube in place. Normoactive bowel sounds. EXTREMITIES: warm, well-perfused, contracted. No edema. Redness on heel o bserved. No skin breakdown. SKIN: Warm, dry. CBC, BMP 01/26/20 08:01 01/26/20 08:01 Active Medications Acetaminophen (Tylenol -) 650 mg NR Q6H PRN PRN Reason: Fever Or Pain Last Admin: 01/26/20 14:52 Dose: 650 mg Documented by: Acyclovir (Zovirax Oral Suspension -) 400 mg GT BID [facility] Last Admin: 01/26/20 10:21 Dose: 400 mg Documented by: Albuterol/Ipratropium (Duoneb -) 1 amp NEB QID PRN PRN Reason: WHEEZING Last Admin: 01/24/20 21:34 Dose: 1 amp Documented by: Bethanechol Chloride (Urecholine -) 25 mg PO TID [facility] Last Admin: 01/26/20 14:53 Dose: 25 mg Documented by: Bisacodyl (Dulcolax Suppository -) 10 mg RC PRN PRN PRN Reason: CONSTIPATION Last Admin: 01/22/20 09:59 Dose: 10 mg Documented by: Budesonide (Pulmicort 0.25 Mg Nebulizer -) 1 amp NEB RBID [facility] Last Admin: 01/25/20 20:45 Dose: 1 amp Documented by: Clobazam (Onfi -) 10 mg GT HS [facility] Last Admin: 01/25/20 22:07 Dose: 10 mg Documented by: Clonazepam (Klonopin -) 0.5 mg GT TID [facility] Last Admin: 01/26/20 14:53 Dose: 0.5 mg Documented by: Diazepam (Diastat Rectal Gel 7.5 Mg) 7.5 mg RC DAILY PRN PRN Reason: AGITATION Last Admin: 01/24/20 02:59 Dose: 7.5 mg Documented by: Docusate Sodium (Colace Liquid -) 100 mg GT BID [facility] Last Admin: 01/26/20 10:21 Dose: 100 mg Documented by: Enoxaparin Sodium (Lovenox -) 40 mg SQ DAILY [facility] Last Admin: 01/26/20 10:21 Dose: 40 mg Documented by: Lamotrigine (Lamictal -) 200 mg PO BID [facility] Last Admin: 01/26/20 10:21 Dose: 200 mg Documented by: Phenobarbital (Phenobarbital Liquid -) 60 mg GT BID [facility] Last Admin: 01/26/20 10: Dose: 60 mg Documented by: Tamsulosin HCl (Flomax -) 0.4 mg PO DAILY@0830 [facility] Last Admin: 01/26/20 08:52 Dose: Not Given Documented by: ASSESSMENT/PLAN: 24 year old M from [facility], with PMH cerebral palsy, herpes encephalitis, GERD, aspiration PNA, dysphagia (s/p G tube) presented to ED with hypoxia and respiratory distress. Pt was in ICU due to hypoxia and hypotension and downgraded to med-surg. Was placed on BiPAP with good response. Pt is currently admitted for aspiration PNA and ileus. Sepsis secondary to aspiration PNA -Was on zosyn (started 01/13-01/21), Flagyl 500 q8H (started 01/19-01/21). Currently off abx. - Leukocytosis, improving - Febrile Tmax 100.7 - ID consulted. Pulmonology consulted. - Will c/w budesonide, duonebs. - Repeat Bcx negative thus far, Ucx negative - supplemental O2, maintain SaO2 >95%. Will wean as tolerated. BiPAP PRN. - aspiration precautions - c/w acetaminophen 650mg NR q6H PRN for fever Ileus, stool impaction -improved -c/w bowel regimen Seizure disorder - Pt observed to have clonus - Neuro consulted. - will c/w phenobarbital 60mg BID GT, clonazepam 0.5 TID, clobazam 10mg qHS, lamotrigine 200mg q12H - c/w diazepam [place] 7.5 qD PRN. Urinary retention, likely neurogenic bladder, improved - Urology consulted. - Will c/w urecholine - Flomax cannot be placed through PEG, thus pt not taking. - continue to monitor Hx of herpes encephalitis -c/w acyclovir 400 BID FEN - No standing fluids - monitor and replete lytes - slow tube feeds Ppx -DVT: Lovenox As per [facility]: tremors baseline for pt when stimulated (calling his name, moving him). Tremors last 1 minute each and happen daily. No medication given at facility. No h/o THERMAL CUTTER HELPER shunt. Informed nurse of pt's need of home O2 (2L). Will call provider and update them of situation. Dispo: continue to monitor on m/s Visit type - Emergency Visit Emergency Visit: Yes ED Registration Date: 01/13/20 Care time: The patient presented to the Emergency Department on the above date a nd was hospitalized for further evaluation of their emergent condition. - New Patient This patient is new to me today: No - Critical Care Critical Care patient: No ATTENDING PHYSICIAN STATEMENT I saw and evaluated the patient. I reviewed the resident's note and discussed the case with the resident. I agree with the resident's findings and plan as documented. SUBJECTIVE: OBJECTIVE: ASSESSMENT AND PLAN:
--- NOTE | 2020-01-26 18:20 | PN ---
Teaching Attending Note Name of Resident: Evie Wolfe ATTENDING PHYSICIAN STATEMENT I saw and evaluated the patient. I reviewed the resident's note and discussed the case with the resident. I agree with the resident's findings and plan as documented. SUBJECTIVE: cont to have fever . d/w RN, hypoxia off NC OBJECTIVE: NAD. sleeping , NC 2 L on CV: RRR. Lungs: clear bilaterally anteriorly, Ext : no edema , muscular atrophy. R heal blister Abd: PEG in, with intact surrounding skin with no erythema but slight hyperpigmentation , no tenderness, NL BS . ND. ASSESSMENT AND PLAN: 24 y/o young man with h/o herpetic meningioencephalitis, MR, seizures , recurrent aspiration PNA , who is being treated for PNA 1- PNA, likely aspiration 2- s/p acute hypoxic resp failure 3- recurrent seizures. h/o seizure DO 4- s/p fecal impaction. plan: - low grade fever today. ? atelectasis, ?continued aspiration . repeat blood cx and urine cx neg to date - monitor Off Abx - cont TF through [facility]ce was called and updated on condition
[2020-01-26] MEDS: BUDESONIDE 0.25 MG/2ML INH SUSP VIAL NEB SCH ×2 (20:17→21:58)
[2020-01-26] MEDS: cloBAZam 10 MG TABLET GT SCH (21:59)
[2020-01-27] MEDS: BETHANECHOL CHLORIDE 25 MG TABLET PO SCH ×3 (05:44→21:58)
[2020-01-27] MEDS: clonazePAM 0.5 MG TABLET GT SCH ×3 (05:44→21:59)
[2020-01-27] MEDS ORDERED: PT OWN MED DRAWER 7, Y5N ONE ×4 (07:18→22:24)
[2020-01-27] MEDS: BUDESONIDE 0.25 MG/2ML INH SUSP VIAL NEB SCH ×2 (07:20→20:30)
[2020-01-27] MEDS: TAMSULOSIN HCL 0.4 MG CAP PO SCH (08:43)
[2020-01-27 09:00] LABS: BASO % 0.8 % (0-2.0); EOS % 1.8 % (0-4.5); HEMATOCRIT 39.8 % (35.4-49); HEMOGLOBIN 13.2 GM/dL (11.7-16.9); LYMPH % 35.3 % (8-40); MCH 33.8 pg (25.7-33.7); MCHC 33.3 g/dl (32.0-35.9); MEAN CELL VOLUME 101.4 fl (80-96); MEAN PLT VOLUME 9.7 fl (7.5-11.1); MONO % 10.1 % (3.8-10.2); PLATELET COUNT 374 K/MM3 (134-434); RBC 3.92 M/mm3 (4.00-5.60); RDW 15.4 % (11.9-15.9)
[2020-01-27] MEDS: lamoTRIgine 100 MG TABLET PO SCH ×2 (10:36→21:59)
[2020-01-27] MEDS: PHENobarbital 20 MG/5 ML UNIT-DOSE CUP GT SCH ×2 (10:36→21:56)
[2020-01-27] MEDS: DOCUSATE NA 100 MG/10 ML UNIT-DOSE CUPS GT SCH ×2 (10:36→21:56)
[2020-01-27] MEDS: ACYCLOVIR 200 MG/5 ML LIQUID GT SCH ×2 (10:37→21:58)
[2020-01-27] MEDS: BISACODYL 10 MG SUPP.RECT RC PRN (10:37)
[2020-01-27] MEDS: ENOXAPARIN NA (PORCINE) 40 MG/0.4 ML DISP.SYRIN SQ SCH (10:37)
--- NOTE | 2020-01-27 12:52 | PN ---
Progress Note (short form) - Note Progress Note: PULMONARY Being monitored off antibiotics t 98.6 axillary/spo2 96% 3L/M Gen: non-verbal Heart: RRR Lung: Scattered rhonchi, decreased breath sounds at the bases Abd: soft, nontender Ext: contracted MEDS/LABS/NOTES/IMAGES/REVIEWED A/P Acute on Chronic Hypoxic Respiratory Failure Pneumonia likely Aspiration Ileus Cerebral Palsy Seizure Disorder Mental Retardation Functional Quadriplegia - Completed antibiotics course - Supplemental O2 as needed - aspiration precautions - DVT prophylaxis - DC planning - Monitoring off antibiotics Kwame IBARRA MD -
--- NOTE | 2020-01-27 13:38 | PN ---
Physical Exam: SUBJECTIVE: Patient seen and examined. No acute events overnight. OBJECTIVE: Vital Signs Period Temp Pulse Resp BP Sys/Linares Pulse Ox Last 24 Hr 98.2 F-100.7 F 61-99 22-30 91-138/39-72 94-98 GENERAL: Nonverbal. Not in acute distress. HEENT: Microcephaly. Atraumatic. Small amount of blood found in posterior pharynx, no obvious bleeding source. LUNGS: decreased breath sounds at bases b/l HEART: RRR, normal S1 and S2 without murmur ABDOMEN: Soft, nontender to palpation, G-tube in place. Normoactive bowel sounds. EXTREMITIES: warm, well-perfused, contracted. No edema. No skin breakdown of heels. SKIN: Warm, dry. CBC, BMP 01/27/20 07:35 01/26/20 08:01 Active Medications Acetaminophen (Tylenol -) 650 mg NR Q6H PRN PRN Reason: Fever Or Pain Last Admin: 01/26/20 14:52 Dose: 650 mg Documented by: Acyclovir (Zovirax Oral Suspension -) 400 mg GT BID [facility] Last Admin: 01/27/20 10:37 Dose: 400 mg Documented by: Albuterol/Ipratropium (Duoneb -) 1 amp NEB QID PRN PRN Reason: WHEEZING Last Admin: 01/24/20 21:34 Dose: 1 amp Documented by: Bethanechol Chloride (Urecholine -) 25 mg PO TID [facility] Last Admin: 01/27/20 13:52 Dose: 25 mg Documented by: Bisacodyl (Dulcolax Suppository -) 10 mg RC PRN PRN PRN Reason: CONSTIPATION Last Admin: 01/27/20 10:37 Dose: 10 mg Documented by: Budesonide (Pulmicort 0.25 Mg Nebulizer -) 1 amp NEB RBID [facility] Last Admin: 01/27/20 07:20 Dose: 1 amp Documented by: Clobazam (Onfi -) 10 mg GT HS [facility] Last Admin: 01/26/20 21:59 Dose: 10 mg Documented by: Clonazepam (Klonopin -) 0.5 mg GT TID [facility] Last Admin: 01/27/20 13:53 Dose: 0.5 mg Documented by: Diazepam (Diastat Rectal Gel 7.5 Mg) 7.5 mg RC DAILY PRN PRN Reason: AGITATION Last Admin: 01/24/20 02:59 Dose: 7.5 mg Documented by: Docusate Sodium (Colace Liquid -) 100 mg GT BID [facility] Last Admin: 01/27/20 10:36 Dose: 100 mg Documented by: Enoxaparin Sodium (Lovenox -) 40 mg SQ DAILY [facility] Last Admin: 01/27/20 10:37 Dose: 40 mg Documented by: Lamotrigine (Lamictal -) 200 mg PO BID [facility] Last Admin: 01/27/20 10:36 Dose: 200 mg Documented by: Phenobarbital (Phenobarbital Liquid -) 60 mg GT BID [facility] Last Admin: 01/27/20 10:36 Dose: 60 mg Documented by: Tamsulosin HCl (Flomax -) 0.4 mg PO DAILY@0830 [facility] Last Admin: 01/27/20 08:43 Dose: Not Given Documented by: ASSESSMENT/PLAN: 24 year old M from [facility], with PMH cerebral palsy, herpes encephalitis, GERD, aspiration PNA, dysphagia (s/p G tube) presented to ED with hypoxia and respiratory distress. Pt was in ICU due to hypoxia and hypotension and downgraded to med-surg. Was placed on BiPAP with good response. Pt is currently admitted for aspiration PNA and ileus. Sepsis secondary to aspiration PNA -Was on zosyn (started 01/13-01/21), Flagyl 500 q8H (started 01/19-01/21). Currently off abx. - Leukocytosis, improved. - Febrile over last 24 hours - Blood in posterior pharynx, will use humidified oxygen. - ID consulted. Pulmonology consulted. - Will c/w budesonide, duonebs. - Repeat Bcx negative thus far, Ucx negative - maintained SpO2 >95% on 3L NC. Will wean as tolerated. BiPAP PRN. - aspiration precautions - c/w acetaminophen 650mg NR q6H PRN for fever Ileus, stool impaction -improved -c/w bowel regimen Seizure disorder - Pt observed to have clonus when stimulated (calling name, moving pt) - Neuro consulted. - will c/w phenobarbital 60mg BID GT, clonazepam 0.5 TID, clobazam 10mg qHS, lamotrigine 200mg q12H - c/w diazepam [place] 7.5 qD PRN Urinary retention, likely neurogenic bladder, improved - Urology consulted. - Will c/w urecholine - Flomax cannot be placed through PEG, thus pt not taking. - continue to monitor Hx of herpes encephalitis -c/w acyclovir 400 BID FEN - No standing fluids - monitor and replete lytes - slow tube feeds Ppx -DVT: Lovenox As per [facility] PCP: Spoke to Dr. Panda. Updated him on pt's status. Informed him of pt's need of home O2 as pt tends to desaturate on room air to 87%. Dispo: continue to monitor on m/s Visit type - Emergency Visit Emergency Visit: Yes ED Registration Date: 01/13/20 Care time: The patient presented to the Emergency Department on the above date and was hospitalized for further evaluation of their emergent condition. - New Patient This patient is new to me today: No - Critical Care Critical Care patient: No ATTENDING PHYSICIAN STATEMENT I saw and evaluated the patient. I reviewed the resident's note and discussed the case with the resident. I agree with the resident's findings and plan as documented. SUBJECTIVE: OBJECTIVE: ASSESSMENT AND PLAN:
--- NOTE | 2020-01-27 16:41 | PN ---
Progress Note (short form) - Note Progress Note: nurse reports some bloody sputum earlier now- now improved he is on nasla [place] no more bipap Vital Signs Period Temp Pulse Resp BP Sys/Linares Pulse Ox Last 24 Hr 98.2 F-100.7 F 61-99 22-33 91-138/46-72 94-98 cor-rrr lungs decreased bs at baes abd soft,nt+GText no edema [place] cath CBC, BMP 01/27/20 07:35 01/26/20 08:01 Microbiology 01/22/20 15:45 Blood - Peripheral Venous Blood Culture - Final NO GROWTH AFTER 5 DAYS INCUBATION 01/22/20 15:37 Blood - Peripheral Venous Blood Culture - Final NO GROWTH AFTER 5 DAYS INCUBATION 01/24/20 08:20 Blood - Peripheral Venous Blood Culture - Preliminary NO GROWTH OBTAINED AFTER 72 HOURS, INCUBATION TO CO NTINUE FOR 2 DAYS. 01/24/20 08:20 Blood - Peripheral Venous Blood Culture - Preliminary NO GROWTH OBTAINED AFTER 72 HOURS, INCUBATION TO CON TINUE FOR 2 DAYS. 01/21/20 08:00 Sputum - Oropharynx Suctioned Sputum Gram Stain - Final 01/21/20 08:00 Sputum - Oropharynx Suctioned Sputum Sputum Culture - Final Escherichia Coli Pseudomonas Aeruginosa Citrobacter Koseri 01/20/20 09:40 Blood - Peripheral Venous Blood Culture - Final NO GROWTH AFTER 5 DAYS INCUBATION 01/20/20 09:50 Blood - Peripheral Venous Blood Culture - Final NO GROWTH AFTER 5 DAYS INCUBATION 01/24/20 06:20 Urine - Urine Lane Urine Culture - Final NO GROWTH OBTAINED 01/21/20 08:00 Urine - Urine - Catheterized Urine Culture - Final NO GROWTH OBTAINED 01/16/20 23:44 Sputum - Oropharynx Suctioned Sputum Gram Stain - Final 01/16/20 23:44 Sputum - Oropharynx Suctioned Sputum Sputum Culture - Final Pseudomonas Aeruginosa 01/13/20 12:24 Blood - Peripheral Venous Blood Culture - Final NO GROWTH AFTER 5 DAYS INCUBATION 01/13/20 12:24 Blood - Peripheral Venous Blood Culture - Final NO GROWTH AFTER 5 DAYS INCUBATION 01/14/20 01:15 Urine - Urine Clean Catch Urine Culture - Final NO GROWTH OBTAINED 01/14/20 01:15 Urine For Antigen Detection Legionella Antigen - Final 01/14/20 01:15 Urine For Antigen Detection Streptococcus pneumoniae Antigen (M - Final a/p recurrent fevers- ?recurrent aspiration trial po augmentin via gt d/w hospitalist Problem List - Problems (1) Hypoxia Code(s): R09.02 - HYPOXEMIA (2) Pneumonia Code(s): J18.9 - PNEUMONIA, UNSPECIFIED ORGANISM (3) Fecal impaction Code(s): K56.41 - FECAL IMPACTION (4) Abnormal LFTs Code(s): R94.5 - ABNORMAL RESULTS OF LIVER FUNCTION STUDIES (5) Seizure Code(s): R56.9 - UNSPECIFIED CONVULSIONS (6) History of encephalitis Code(s): Z86.61 - PERSONAL HISTORY OF INFECTIONS OF THE CENTRAL NERVOUS SYSTEM
--- NOTE | 2020-01-27 18:37 | PN ---
Teaching Attending Note Name of Resident: Sweetie Cobb ATTENDING PHYSICIAN STATEMENT I saw and evaluated the patient. I reviewed the resident's note and discussed the case with the resident. I agree with the resident's findings and plan as documented. SUBJECTIVE: cont to have fever . no events OBJECTIVE: NAD. sleeping , NC 2 L on CV: RRR. Lungs: clear bilaterally anteriorly, Ext : no edema , muscular atrophy. R heal blister , resolving Abd: PEG in, with intact surrounding skin with no erythema but slight hyperpigmentation , no tenderness, NL BS . ND. ASSESSMENT AND PLAN: 24 y/o young man with h/o herpetic meningioencephalitis, MR, seizures , recurrent aspiration PNA , who is being treated for PNA 1- PNA, likely aspiration 2- s/p acute hypoxic resp failure 3- recurrent seizures. h/o seizure DO 4- s/p fecal impaction. plan: - d/w ID. start augmentin for 7 days - cont TF through [facility] was called and updated on condition againt today. will tati O2 through [place]
[2020-01-27] MEDS ORDERED: AMOX TR/POTASSIUM CLAVULANATE 600 MG/5 ML PEG SCH (18:40)
[2020-01-27] MEDS: ALBUTEROL SO4 2.5/IPRATROPIUM 0.5 INH SOL 3 ML VIAL.NEB. NEB PRN (20:30)
[2020-01-27] MEDS: AMOX TR/POTASSIUM CLAVULANATE 250 MG/5 ML BOTTLE PEG SCH (21:57)
[2020-01-27] MEDS: cloBAZam 10 MG TABLET GT SCH (22:00)
[2020-01-28] MEDS ORDERED: PT OWN MED DRAWER 7, Y5N ONE ×4 (05:34→21:39)
[2020-01-28] MEDS: clonazePAM 0.5 MG TABLET GT SCH ×3 (06:24→21:57)
[2020-01-28] MEDS: BETHANECHOL CHLORIDE 25 MG TABLET PO SCH ×3 (06:24→21:56)
[2020-01-28] MEDS: AMOX TR/POTASSIUM CLAVULANATE 250 MG/5 ML BOTTLE PEG SCH ×3 (06:24→21:58)
[2020-01-28] MEDS: BUDESONIDE 0.25 MG/2ML INH SUSP VIAL NEB SCH ×2 (07:50→20:50)
[2020-01-28 09:01] LABS: HEMATOCRIT 39.5 % (35.4-49); HEMOGLOBIN 13.7 GM/dL (11.7-16.9); MCH 35.2 pg (25.7-33.7); MCHC 34.7 g/dl (32.0-35.9); MEAN CELL VOLUME 101.3 fl (80-96); MEAN PLT VOLUME 10.4 fl (7.5-11.1); PLATELET COUNT 390 K/MM3 (134-434); RBC 3.91 M/mm3 (4.00-5.60); RDW 14.8 % (11.9-15.9)
[2020-01-28 09:02] LABS: WHITE BLOOD COUNT 20.5 K/mm3 (4.0-10.0)
[2020-01-28 09:32] LABS: BLOOD UREA NITROGEN 14.5 mg/dL (7-18); CALCIUM 9.6 mg/dL (8.5-10.1); CREATININE 0.6 mg/dL (0.55-1.3); POTASSIUM 4.3 mmol/L (3.5-5.1)
--- NOTE | 2020-01-28 10:24 | PN ---
Physical Exam: SUBJECTIVE: Patient seen and examined at bedside. Overnight he vomited with residual in G tube. Feeds were then stopped. He also demonstrated a fever of 100.7 in the early afternoon yesterday. He cont. to be non-verbal and unable to participate in the medical interview. OBJECTIVE: Vital Signs Period Temp Pulse Resp BP Sys/Linares Pulse Ox Last 24 Hr 98.5 F-100.7 F 63-88 24-33 90-138/43-69 95-98 GENERAL: Nonverbal. Not in acute distress. HEENT: Microcephaly. Atraumatic. Small amount of blood found in posterior pharynx, no obvious bleeding source. LUNGS: decreased breath sounds at bases b/l HEART: RRR, normal S1 and S2 without murmur ABDOMEN: Soft, nontender to palpation, G-tube in place. Normoactive bowel sounds. EXTREMITIES: warm, well-perfused, contracted. No edema. No skin breakdown of heels. SKIN: Warm, dry. Laboratory Results - last 24 hr 01/28/20 01/28/20 08:00 08:00 WBC 20.5 H RBC 3.91 L Hgb 13.7 Hct 39.5 MCV 101.3 H MCH 35.2 H MCHC 34.7 RDW 14.8 Sodium 134 L Potassium 4.3 Chloride 99 Carbon Dioxide 28 Anion Gap 7 L BUN 14.5 Creatinine 0.6 Est GFR (CKD-EPI)AfAm 164.25 Est GFR (CKD-EPI)NonAf 141.72 Random Glucose 102 Calcium 9.6 Active Medications Generic Name Dose Route Start Last Admin Trade Name Freq PRN Reason Stop Dose Admin Acetaminophen 650 mg 01/22/20 13:21 01/26/20 14:52 Tylenol - NR 650 mg Q6H PRN Administration Fever Or Pain Acyclovir 400 mg 01/16/20 22:00 01/27/20 21:58 Zovirax Oral Suspension - GT 400 mg BID JORGE Administration Albuterol/Ipratropium 1 amp 01/16/20 18:33 01/27/20 20:30 Duoneb - NEB 1 amp QID PRN Administration WHEEZING Amoxicillin/Clavulanate Potassium 500 mg 01/27/20 22:00 01/28/20 06:24 Augmentin 250 Mg/5 Ml Oral Suspension - PEG 500 mg TID JORGE Administration Bethanechol Chloride 25 mg 01/22/20 22:00 01/28/20 06:24 Urecholine - PO 25 mg TID JORGE Administration Bisacodyl 10 mg 01/16/20 18:33 01/27/20 10:37 Dulcolax Suppository - RC 10 mg PRN PRN Administration CONSTIPATION Budesonide 1 amp 01/16/20 20:00 01/28/20 07:50 Pulmicort 0.25 Mg Nebulizer - NEB Not Given RBID JORGE Clobazam 10 mg 01/16/20 22:00 01/27/20 22:00 Onfi - GT 10 mg HS JORGE Administration Clonazepam 0.5 mg 01/20/20 22:00 01/28/20 06:24 Klonopin - GT 0.5 mg TID JORGE Administration Diazepam 7.5 mg 01/20/20 09:03 01/24/20 02:59 Diastat Rectal Gel 7.5 Mg RC 7.5 mg DAILY PRN Administration AGITATION Docusate Sodium 100 mg 01/16/20 22:00 01/27/20 21:56 Colace Liquid - GT 100 mg BID JORGE Administration Enoxaparin Sodium 40 mg 01/17/20 10:00 01/27/20 10:37 Lovenox - SQ 40 mg DAILY JORGE Administration Lamotrigine 200 mg 01/16/20 22:00 01/27/20 21:59 Lamictal - PO 200 mg BID JORGE Administration Phenobarbital 60 mg 01/20/20 22:00 01/27/20 21:56 Phenobarbital Liquid - GT 60 mg BID JORGE Administration Tamsulosin HCl 0.4 mg 01/22/20 14:23 01/27/20 08:43 Flomax - PO Not Given DAILY@0830 [facility] ASSESSMENT/PLAN: 24 y/o male from [facility] cerebral palsy, herpes encephalitis, GERD, aspiration PNA, dysphagia (s/p G tube) presented to ED with hypoxia and respiratory distress. Was in ICU for acute hypoxic respiratory failure and now M/S. # Sepsis 2/2 aspiration PNA - Augmentin day 2 - Can restart feeds but at a slower rate: rate 35 - Marked leukocytosis, 20.5 from 10 - ID consulted - Pulmonology consulted - Aspiration precautions - Acetaminophen 650mg NR q6H PRN for fever # Acute hypoxic respiratory failure - Cont. 2L NC # Stool impaction - c/w bowel regimen # Seizure disorder - Phenobarbital 60mg BID GT, clonazepam 0.5 TID, clobazam 10mg qHS, lamotrigine 200mg q12H - Neuro consulted. - Diazepam MO 7.5 qD PRN # Urinary retention - Urology consulted. - Will c/w bethanechol - continue to monitor # H/o herpes encephalitis - Acyclovir 400 BID # FEN - 20 flushes - Monitor and replete as appropriate - Tube feeds with rate 35 # DVT ppx - Lovenox # Disposition - Med/surg Visit type - Emergency Visit Emergency Visit: No - New Patient This patient is new to me today: Yes Date on this admission: 01/28/20 - Critical Care Critical Care patient: No ATTENDING PHYSICIAN STATEMENT I saw and evaluated the patient. I reviewed the resident's note and discussed the case with the resident. I agree with the resident's findings and plan as documented. SUBJECTIVE: OBJECTIVE: ASSESSMENT AND PLAN:
[2020-01-28] MEDS: TAMSULOSIN HCL 0.4 MG CAP PO SCH (10:31)
[2020-01-28] MEDS: lamoTRIgine 100 MG TABLET PO SCH ×2 (10:38→21:56)
[2020-01-28] MEDS: PHENobarbital 20 MG/5 ML UNIT-DOSE CUP GT SCH ×2 (10:38→21:57)
[2020-01-28] MEDS: DOCUSATE NA 100 MG/10 ML UNIT-DOSE CUPS GT SCH ×2 (10:38→21:57)
[2020-01-28] MEDS: ACYCLOVIR 200 MG/5 ML LIQUID GT SCH ×2 (10:38→21:57)
[2020-01-28] MEDS: ENOXAPARIN NA (PORCINE) 40 MG/0.4 ML DISP.SYRIN SQ SCH (10:39)
--- NOTE | 2020-01-28 12:12 | PN ---
Progress Note (short form) - Note Progress Note: PULMONARY Events noted Had episode of bloody sputum yesterday No further temp spike today but Leukocytosis of 20k noted Gen: non-verbal Heart: RRR Lung: Scattered rhonchi, decreased breath sounds at the bases Abd: soft, nontender Ext: contracted MEDS/LABS/NOTES/IMAGES/REVIEWED A/P Acute on Chronic Hypoxic Respiratory Failure Pneumonia likely Aspiration Ileus Cerebral Palsy Seizure Disorder Mental Retardation Functional Quadriplegia - Augmentin via Gtube - Supplemental O2 as needed - aspiration precautions - DVT prophylaxis Kwame IBARRA MD -
[2020-01-28 12:16] LABS: ALBUMIN 3.7 g/dl (3.4-5.0); BILIRUBIN,TOTAL 0.5 mg/dL (0.2-1); MAGNESIUM 2.2 mg/dL (1.8-2.4); TOT PROT 9.6 g/dl (6.4-8.2)
--- NOTE | 2020-01-28 14:24 | PN ---
Teaching Attending Note Name of Resident: Eyad Pruett ATTENDING PHYSICIAN STATEMENT I saw and evaluated the patient. I reviewed the resident's note and discussed the case with the resident. I agree with the resident's findings and plan as documented. SUBJECTIVE: cont to have fever . vomiting last night with large residual OBJECTIVE: NAD. sleeping , NC 2 L on CV: RRR. Lungs: clear bilaterally anteriorly, Ext: no edema, muscular atrophy. R heal blister, resolving Abd: PEG in, with intact surrounding skin with no erythema but slight hyperpigmentation, no tenderness, NL BS . ND. ASSESSMENT AND PLAN: 24 y/o young man with h/o herpetic meningioencephalitis, MR, seizures , recurrent aspiration PNA , who is being treated for PNA 1- PNA, likely aspiration 2- s/p acute hypoxic resp failure 3- recurrent seizures. h/o seizure DO 4- s/p fecal impaction. plan: - decrease TF rate , as he has vomiting and large residual whcih might explain continued aspiration - cont Augmentin - WBC noted, ? reaction to aspiration /vomiting. if remains elevated by tomorrow---> will d/w ID IV Abx - cont seizure meds - cont lovenox
[2020-01-28] MEDS ORDERED: AMOX TR/POT CLAV 875MG/125MG TABLETS (FP) PO SCH (17:45)
[2020-01-28] MEDS: cloBAZam 10 MG TABLET GT SCH (21:56)
[2020-01-29] MEDS ORDERED: PT OWN MED DRAWER 7, Y5N ONE ×5 (02:19→22:54)
[2020-01-29] MEDS: clonazePAM 0.5 MG TABLET GT SCH ×3 (05:47→23:00)
[2020-01-29] MEDS: BETHANECHOL CHLORIDE 25 MG TABLET PO SCH ×3 (05:47→23:03)
[2020-01-29] MEDS: AMOX TR/POTASSIUM CLAVULANATE 250 MG/5 ML BOTTLE PEG SCH ×3 (05:47→23:02)
[2020-01-29] MEDS ORDERED: BUDESONIDE 0.5 MG/2 ML INH SUSP VIAL NEB ONE (07:58)
[2020-01-29 08:27] LABS: BASO % 0.5 % (0-2.0); EOS % 1.1 % (0-4.5); HEMATOCRIT 39.4 % (35.4-49); HEMOGLOBIN 13.4 GM/dL (11.7-16.9); LYMPH % 30.7 % (8-40); MCH 34.2 pg (25.7-33.7); MEAN CELL VOLUME 100.7 fl (80-96); MEAN PLT VOLUME 9.3 fl (7.5-11.1); MONO % 11.2 % (3.8-10.2); NEUT % 56.5 % (42.8-82.8); PLATELET COUNT 464 K/MM3 (134-434); RBC 3.92 M/mm3 (4.00-5.60); RDW 15.1 % (11.9-15.9); WHITE BLOOD COUNT 8.9 K/mm3 (4.0-10.0)
[2020-01-29] MEDS: BUDESONIDE 0.25 MG/2ML INH SUSP VIAL NEB SCH ×2 (09:30→19:07)
[2020-01-29] MEDS: TAMSULOSIN HCL 0.4 MG CAP PO SCH (09:45)
[2020-01-29] MEDS: PHENobarbital 20 MG/5 ML UNIT-DOSE CUP GT SCH ×2 (10:35→23:00)
[2020-01-29] MEDS: lamoTRIgine 100 MG TABLET PO SCH ×2 (10:36→22:59)
[2020-01-29] MEDS: ACYCLOVIR 200 MG/5 ML LIQUID GT SCH ×2 (10:36→23:00)
[2020-01-29] MEDS: ENOXAPARIN NA (PORCINE) 40 MG/0.4 ML DISP.SYRIN SQ SCH (10:36)
[2020-01-29] MEDS: DOCUSATE NA 100 MG/10 ML UNIT-DOSE CUPS GT SCH ×2 (10:36→23:00)
--- NOTE | 2020-01-29 12:49 | PN ---
Progress Note (short form) - Note Progress Note: PULMONARY No further bloody sputum reported 97% spo2 on room air vss/afebrile Gen: non-verbal Heart: RRR Lung: Scattered rhonchi, decreased breath sounds at the bases Abd: soft, nontender Ext: contracted MEDS/LABS/NOTES/IMAGES/REVIEWED A/P Acute on Chronic Hypoxic Respiratory Failure Pneumonia likely Aspiration Ileus Cerebral Palsy Seizure Disorder Mental Retardation Functional Quadriplegia - Augmentin via Gtube - Supplemental O2 as needed - aspiration precautions - DVT prophylaxis Kwame IBARRA MD -
--- NOTE | 2020-01-29 13:59 | PN ---
Progress Note (short form) - Note Progress Note: Subjective: no fever > 24 hr. no events per RN Objective: Vital Signs: Last Vital Signs Temp Pulse Resp BP Pulse Ox 98.1 F 70 22 H 109/59 L 97 01/29/20 05:00 01/29/20 12:03 01/29/20 05:00 01/29/20 05:00 01/29/20 12:03 Laboratory Results - last 24 hr 01/29/20 07:12 WBC 8.9 RBC 3.92 L Hgb 13.4 Hct 39.4 MCV 100.7 H MCH 34.2 H MCHC 34.0 RDW 15.1 Plt Count 464 H MPV 9.3 D Absolute Neuts (auto) 5.0 Neutrophils % 56.5 Lymphocytes % 30.7 Monocytes % 11.2 H Eosinophils % 1.1 Basophils % 0.5 Nucleated RBC % 0 Physical Exam: NAD. awake, off O2 CV: RRR. Lungs: clear bilaterally anteriorly, Ext: no edema, muscular atrophy. no blister seen Abd: PEG in, with intact surrounding skin with no erythema but slight hyperpigmentation, no tenderness, NL BS . ND. ASSESSMENT AND PLAN: 24 y/o young man with h/o herpetic meningioencephalitis, MR, seizures , recurrent aspiration PNA , who is being treated for PNA 1- PNA, likely aspiration 2- s/p acute hypoxic resp failure 3- recurrent seizures. h/o seizure DO 4- s/p fecal impaction. plan: - afebrile > 24 hr . - cont decreased rat eof TF @35 cc /hr to avoid aspiration again . - cont Augmentin day 3 - reactive leukocytosis ( aspiration event ) has resolved - cont seizure meds - cont lovenox - Not requiring O2 today Mo to [place] tomorrow Visit type - Emergency Visit Emergency Visit: Yes ED Registration Date: 01/13/20 Care time: The patient presented to the Emergency Department on the above date and was hospitalized for further evaluation of their emergent condition. - New Patient This patient is new to me today: No - Critical Care Critical Care patient: No
[2020-01-29] MEDS: cloBAZam 10 MG TABLET GT SCH (22:59)
[2020-01-30] MEDS ORDERED: PT OWN MED DRAWER 7, Y5N ONE ×4 (06:11→15:37)
[2020-01-30] MEDS: clonazePAM 0.5 MG TABLET GT SCH ×3 (06:17→22:31)
[2020-01-30] MEDS: AMOX TR/POTASSIUM CLAVULANATE 250 MG/5 ML BOTTLE PEG SCH ×2 (06:17→15:46)
[2020-01-30] MEDS: BETHANECHOL CHLORIDE 25 MG TABLET PO SCH ×3 (06:17→22:31)
[2020-01-30] MEDS: BUDESONIDE 0.25 MG/2ML INH SUSP VIAL NEB SCH ×2 (08:13→20:16)
[2020-01-30] MEDS: PHENobarbital 20 MG/5 ML UNIT-DOSE CUP GT SCH ×2 (09:58→22:32)
[2020-01-30] MEDS: lamoTRIgine 100 MG TABLET PO SCH ×2 (09:58→22:31)
[2020-01-30] MEDS: TAMSULOSIN HCL 0.4 MG CAP PO SCH (09:58)
[2020-01-30] MEDS: ENOXAPARIN NA (PORCINE) 40 MG/0.4 ML DISP.SYRIN SQ SCH (09:58)
[2020-01-30] MEDS: DOCUSATE NA 100 MG/10 ML UNIT-DOSE CUPS GT SCH ×2 (09:58→22:32)
[2020-01-30] MEDS: BISACODYL 10 MG SUPP.RECT RC PRN (10:29)
[2020-01-30] MEDS: ACYCLOVIR 200 MG/5 ML LIQUID GT SCH (10:30)
--- NOTE | 2020-01-30 11:49 | PN ---
Progress Note (short form) - Note Progress Note: PULMONARY Nonverbal. No fevers recorded. Vital Signs Period Temp Pulse Resp BP Sys/Linares Pulse Ox Last 24 Hr 97.8 F-99.0 F 56-102 18-22 90-107/41-69 93-97 Gen: NAD on BiPAP Heart: RRR Lung: decreased breath sounds at the bases Abd: soft, nontender Ext: contracted CBC, BMP 01/29/20 07:12 01/28/20 08:00 Active Medications Acetaminophen (Tylenol -) 650 mg NR Q6H PRN PRN Reason: Fever Or Pain Last Admin: 01/26/20 14:52 Dose: 650 mg Documented by: Acyclovir (Zovirax Oral Suspension -) 400 mg GT BID [facility] Last Admin: 01/30/20 10:30 Dose: 400 mg Documented by: Albuterol/Ipratropium (Duoneb -) 1 amp NEB QID PRN PRN Reason: WHEEZING Last Admin: 01/27/20 20:30 Dose: 1 amp Documented by: Amoxicillin/Clavulanate Potassium (Augmentin 250 Mg/5 Ml Oral Suspension -) 500 mg PEG TID [facility] Last Admin: 01/30/20 06:17 Dose: 500 mg Documented by: Bethanechol Chloride (Urecholine -) 25 mg PO TID [facility] Last Admin: 01/30/20 06:17 Dose: 25 mg Documented by: Bisacodyl (Dulcolax Suppository -) 10 mg RC PRN PRN PRN Reason: CONSTIPATION Last Admin: 01/30/20 10:29 Dose: 10 mg Documented by: Budesonide (Pulmicort 0.25 Mg Nebulizer -) 1 amp NEB RBID [facility] Last Admin: 01/30/20 08:13 Dose: 1 amp Documented by: Clobazam (Onfi -) 10 mg GT HS [facility] Last Admin: 01/29/20 22:59 Dose: 10 mg Documented by: Clonazepam (Klonopin -) 0.5 mg GT TID [facility] Last Admin: 01/30/20 06:17 Dose: 0.5 mg Documented by: Diazepam (Diastat Rectal Gel 7.5 Mg) 7.5 mg RC DAILY PRN PRN Reason: AGITATION Last Admin: 01/24/20 02:59 Dose: 7.5 mg Documented by: Docusate Sodium (Colace Liquid -) 100 mg GT BID [facility] Last Admin: 01/30/20 09:58 Dose: 100 mg Documented by: Enoxaparin Sodium (Lovenox -) 40 mg SQ DAILY [facility] Last Admin: 01/30/20 09:58 Dose: 40 mg Documented by: Lamotrigine (Lamictal -) 200 mg PO BID [facility] Last Admin: 01/30/20 09:58 Dose: 200 mg Documented by: Phenobarbital (Phenobarbital Liquid -) 60 mg GT BID [facility] Last Admin: 01/30/20 09:58 Dose: 60 mg Documented by: Tamsulosin HCl (Flomax -) 0.4 mg PO DAILY@0830 [facility] Last Admin: 01/30/20 09:58 Dose: 0.4 mg Documented by: A/P Acute on Chronic Hypoxic Respiratory Failure Pneumonia likely Aspiration Ileus Cerebral Palsy Seizure Disorder Mental Retardation Functional Quadriplegia - continue antibiotics - O2 to keep SpO2 >90% - enteral feeds - aspiration precautions - DVT prophylaxis
--- NOTE | 2020-01-30 14:33 | PN ---
Teaching Attending Note Name of Resident: Evie Wolfe ATTENDING PHYSICIAN STATEMENT I saw and evaluated the patient. I reviewed the resident's note and discussed the case with the resident. I agree with the resident's findings and plan as documented. SUBJECTIVE: no events over night OBJECTIVE: NAD. awake CV: RRR. Lungs: clear bilaterally anteriorly, Ext: no edema, muscular atrophy. no blister seen Abd: PEG in, with intact surrounding skin with no erythema but slight hyperpigmentation, no tenderness, NL BS . ND. ASSESSMENT AND PLAN: 24 y/o young man with h/o herpetic meningioencephalitis, MR, seizures , recurrent aspiration PNA , who is being treated for PNA 1- PNA, likely aspiration 2- S/p acute hypoxic resp failure 3- Recurrent seizures. h/o seizure DO 4- S/p fecal impaction. plan: - needs O2 on and off. now on 4 L . cont low rate of TF . - cont Augmentin to finishe total of 7 days 4 day 4 today ) - cont seizure meds at current dosing dispo : will contact [facility] and send patient on O2 if accepted .
--- NOTE | 2020-01-30 17:22 | DS ---
Physical Exam: SUBJECTIVE: Patient seen and examined. No acute events overnight. OBJECTIVE: Vital Signs Period Temp Pulse Resp BP Sys/Linares Pulse Ox Last 24 Hr 97.8 F-99.0 F 56-99 18-22 90-104/41-69 94-97 PHYSICAL EXAM GENERAL: Nonverbal. Not in acute distress. HEENT: Microcephaly. Atraumatic. LUNGS: CTA b/l HEART: RRR, normal S1 and S2 without murmur ABDOMEN: Soft, nontender, normoactive bowel sounds, PEG tube w/o erythema/swelling. EXTREMITIES: warm, well-perfused, contracted. No edema. No skin breakdown of heels. SKIN: Warm, dry. LABS CBC, BMP 01/29/20 07:12 01/28/20 08:00 HOSPITAL COURSE: 24 [facility], herpes encephalitis, GERD, aspiration PNA, dysphagia (s/p G tube) presented to ED with hypoxia and respiratory distress likely secondary to aspiration. Was in ICU for acute hypoxic respiratory failure. Pt received zosyn (started 01/13-01/21), Flagyl 500 q8H (started 01/19-01/21). Was given Augmentin on discharge. Pt was given slow tube feeds to prevent further events of aspiration. During hospital course, pt was having clonic episodes. Neurology evaluated pt, increased phenobarbital dose and continued with rectal diazepam. Pt returned to baseline amount of clonus. Pt's urinary retention resolved with bethanechol. Pt was seen to desaturate on room air, which improved with supplemental oxygen. He has BiPAP PRN at [facility]. Dr. Valentino informed about pt's status. Pt is hemodynamically stable and medically optimized for discharge back to [facility] for further management. Date of Admission:01/13/20 Date of Discharge: 01/30/20 Minutes to complete discharge: 36 Discharge Summary Problems reviewed: Yes Reason For Visit: SEPSIS PNEUMONIA Current Active Problems Abnormal LFTs (Acute) Aspiration pneumonia (Acute) Hypoxia (Acute) Sepsis with acute hypoxic respiratory failure (Acute) Urinary retention (Acute) Condition: Improved - Instructions Diet, Activity, Other Instructions: Your visit: You were admitted to the hospital for low oxygen. We did imaging of your chest. You were found to have Pneumonia. You were treated with antibiotics and supplemental oxygen with improvement of your symptoms. We did repeat imaging of your chest, which showed improvement. Medications changes: -We INCREASED your Phenobarbital to 60mg twice a day. -Please DISCONTINUE your baclofen 10mg twice a day. -Please continue to take Bethanechol Chloride 25mg three times a day. -Please continue to take Augmentin for 3 more days for a total of 7 days antibiotics. -Continue to take all other home medications as prescribed. Follow up: - Please follow-up with your dialysis chief equipment technician, Dr. Schmid, in 1 week. - follow with your own neurologist - Please follow up with your urologist, Dr. Casanova, in 1 week. - Visit with your Primary Care Provider, Dr. Panda, in 2 weeks. Additional Instructions: -You are being discharged to [facility]. -Please return to the Emergency Department if you experience worsening pain, fevers, chills, shortness of breath, or chest pain, or if you experience any worsening, new or concerning symptoms. you need 4 L of pf O2 through Nasal cannula. We used TF vital 1.2 at 35CC /hr with 20 cc/hr water flushes. continuous 24 hr feeding. he tolerated that Referrals: Arpan Harrison MD [Staff Physician] - 1 Week Juan Miguel Jo MD [Staff Physician] - 1 Week Farzad Crow MD [Primary Care Provider] - 2 Weeks Db Casanova MD [Staff Physician] - 1 Week Jah Schmid MD, MD [Staff Physician] - 1 Week Disposition: [facility]ILITY - Home Medications Comprehensive Discharge Medication List: Ambulatory Orders Acyclovir 400 mg GT BID 04/25/17 Clobazam [Onfi -] 10 mg GT HS 04/25/17 Clonazepam 0.5 mg GT TID 04/25/17 Lamotrigine 200 mg GT BID 04/25/17 Multivitamin [Poly-Vitamin] 1 each GT HS 04/25/17 Diazepam Rectal Gel [Diastat Rectal Gel -] 7.5 mg NE PRN PRN 05/23/18 Protein Supplement [Promod] 1,190 ml GT DAILY 05/23/18 Budesonide [Pulmicort 0.25 mg Nebulizer -] 1 neb IH BID 02/05/19 Fluticasone Prop 0.05% Nasal [Flonase -] 2 spray NS AM 02/05/19 Magnesium Hydrox 2400MG/30Ml [Milk of Magnesia -] 20 ml GT BID 02/05/19 Albuterol 2.5/Ipratropium 0.5 [Duoneb -] 1 neb IH QID PRN #30 neb 02/14/19 Sodium Chloride/Aloe Vera [[place] Saline Nasal Gel [place]] 22 ml NS BID 06/01/19 Bisacodyl 10 mg RC PRN PRN 11/22/19 Diphenhydramine [Benadryl 12.5 MG/5 ML Oral Solution -] 25 mg PO Q6H PRN 11/22/19 Famotidine 10 mg PO BID 11/22/19 Lactobacillus Acidophilus [Acidophilus] 1 each PO HS 11/22/19 Simethicone Liquid [Mylicon Liquid -] 40 mg PO PRN PRN 11/22/19 Docusate Liquid [Colace Liquid -] 100 mg GT BID ud 11/29/19 Acetaminophen [Tylenol .Regular Strength -] 650 mg NR Q6H PRN tablet 01/27/20 Bethanechol Chloride [Bethanechol Chloride -] 25 mg PO TID #90 tablet 01/27/20 Phenobarbital Liquid - [Phenobarbital Liquid 20 MG/5 ML -] 60 mg PO BID #1 bottle MDD 60 01/27/20 Amox-Tr/K Cl [Augmentin 250 mg/5 ml Oral Suspension -] 500 mg PEG TID 3 Days #150 ml 01/30/20 This patient is new to me today: No Emergency Visit: Yes ED Registration Date: 01/13/20 Care time: The patient presented to the Emergency Department on the above date and was hospitalized for further evaluation of their emergent condition. Critical Care patient: No - Discharge Referral Referred to [facility] No ATTENDING PHYSICIAN STATEMENT I saw and evaluated the patient. I reviewed the resident's note and discussed the case with the resident. I agree with the resident's findings and plan as documented. SUBJECTIVE: OBJECTIVE: ASSESSMENT AND PLAN:
[2020-01-30 22:23] VITALS: BP 103/61; PULSE 76; TEMP 98.4
== END 2020-01-30 22:00 | DRG 720 ==
LOC: JER 11:28 → JERBED 17:41 → JICU 01-14 10:42 → J5S 01-16 18:57
PROVIDERS: ADMIT Internal Medicine Pulmonary Disease; ATTEND Internal Medicine
DX: A41.89 Other specified sepsis (principal); R53.2 Functional quadriplegia; J69.0 Pneumonitis due to inhalation of food and vomit; J96.21 Acute and chronic respiratory failure with hypoxia; K21.9 Gastro-esophageal reflux disease without esophagitis; K56.41 Fecal impaction; G40.909 Epilepsy, unspecified, not intractable, without status epilepticus; R13.10 Dysphagia, unspecified; F73 Profound intellectual disabilities; K56.49 Other impaction of intestine; R65.21 Severe sepsis with septic shock; K56.699 Other intestinal obstruction unspecified as to partial versus complete obstruction; R74.0 Nonspecific elevation of levels of transaminase and lactic acid dehydrogenase [LDH]; I95.9 Hypotension, unspecified; B00.4 Herpesviral encephalitis; G80.8 Other cerebral palsy; R94.5 Abnormal results of liver function studies; R50.9 Fever, unspecified; R33.9 Retention of urine, unspecified; Z93.1 Gastrostomy status; Z86.61 Personal history of infections of the central nervous system
CPT/HCPCS: 36415; 36600; 71045-TC-FY; 71250-TC; 71260-TC; 74018-TC-FY; 74177-TC; 76705-TC; 80048; 80053; 80175; 80184; 81003; 82803; 83605; 83735; 84100; 84484; 85025; 85027; 85610; 85730; 87040; 87070; 87086; 87186; 87205; 87899; 93005; 93010; 93970-TC; 94640; 94660; 94761; 99285-25; J0131; J0475; Q9967; U0003

== ENCOUNTER 2020-04-15 09:11 | Inpatient (IN) | payer OTHER ==
[2020-04-15 09:50] VITALS: BMI 18.8
[2020-04-15 10:54] LABS: VENOUS BASE EXCESS 1.2 mmol/L (-2-2); VENOUS PCO2 47.3 mmHg (38-52); VENOUS PH 7.377 (7.310-7.410)
[2020-04-15 10:55] LABS: BASO % 0.3 % (0-2.0); EOS % 3.3 % (0-4.5); HEMATOCRIT 47.1 % (35.4-49); HEMOGLOBIN 15.8 GM/dL (11.7-16.9); LYMPH % 30.5 % (8-40); MCH 33.2 pg (25.7-33.7); MCHC 33.7 g/dl (32.0-35.9); MEAN CELL VOLUME 98.6 fl (80-96); MEAN PLT VOLUME 11.2 fl (7.5-11.1); MONO % 7.1 % (3.8-10.2); NEUT % 58.8 % (42.8-82.8); PLATELET COUNT 261 K/MM3 (134-434); RBC 4.77 M/mm3 (4.00-5.60); RDW 14.3 % (11.9-15.9); WHITE BLOOD COUNT 11.6 K/mm3 (4.0-10.0)
[2020-04-15 11:02] LABS: INR 1.14 (0.83-1.09); PROTHROMBIN TIME (PATIENT) 13.7 SEC (9.7-13.0)
[2020-04-15 11:04] LABS: ACTIVATED PTT 31.2 SECONDS (25.2-36.5)
[2020-04-15 11:14] LABS: POTASSIUM 3.9 mmol/L (3.5-5.1)
[2020-04-15 11:16] LABS: CALCIUM 9.8 mg/dL (8.5-10.1)
[2020-04-15 11:17] LABS: BLOOD UREA NITROGEN 14.2 mg/dL (7-18)
[2020-04-15 11:20] LABS: BILIRUBIN,TOTAL 0.4 mg/dL (0.2-1); CREATININE 0.8 mg/dL (0.55-1.3); TOT PROT 9.4 g/dl (6.4-8.2)
[2020-04-15 12:01] LABS: EPI CELLS 11 /uL (0-25.1); HYALINE CASTS 8 /uL (0-3.1); PH,URINE 8.5 (5.0-8.0); URINE APPEARANCE CLOUDY; URINE BACTERIA 7 /uL (0-1359); URINE BILIRUBIN 1+ (NEGATIVE); URINE COLOR DK YELLOW; URINE GLUCOSE (UA) NEGATIVE (NEGATIVE); URINE KETONE TRACE (NEGATIVE); URINE LEUK ESTERASE NEGATIVE (NEGATIVE); URINE NITRITE NEGATIVE (NEGATIVE); URINE PROTEIN 1+ (NEGATIVE); URINE RBC 12 /uL (0-23.9); URINE UROBILINOGEN 0.2 mg/dL (0.2-1.0); URINE WBC 2 /uL (0-25.8)
[2020-04-15] MEDS ORDERED: SODIUM CHLORIDE FOR INHALATION 3 ML VIAL.NEB IH ONE (12:49)
[2020-04-15] MEDS ORDERED: PIPERACILLIN/TAZOB 4.5 GM 4.5 GM in DEXTROSE 5%-WATER 100 ML IVPB ONE (12:54)
[2020-04-15] MEDS ORDERED: PIPERACILLIN/TAZOB 4.5 GM 4.5 GM/100 ML BAG IVPB ONE (12:58)
[2020-04-15] MEDS ORDERED: diazePAM RECTAL GEL 7.5 MG KIT (PRE-CALIBRATED) RC PRN (14:09)
[2020-04-15] MEDS ORDERED: PIPERACILLIN/TAZOBACTAM 3.375 GM VIAL IVPB ONE (17:05)
[2020-04-15] MEDS ORDERED: DEXTROSE 5%-WATER - 50 ML IVPB ONE (17:05)
[2020-04-15] MEDS: PIPERACILLIN/TAZOB 3.375 GM 3.375 GM in DEXTROSE 5%-WATER - 50 ML IVPB SCH (19:52)
[2020-04-15] MEDS ORDERED: ACETAMINOPHEN 1000 MG/100 ML VIAL (NON FORMULARY) IVPB ONE ×2 (20:05→20:30)
[2020-04-15] MEDS: clonazePAM 0.5 MG TABLET GT SCH (21:52)
[2020-04-15] MEDS: lamoTRIgine 100 MG TABLET PO SCH (21:52)
[2020-04-15] MEDS: cloBAZam 10 MG TABLET GT SCH (21:52)
[2020-04-15] MEDS: ACYCLOVIR 200 MG/5 ML LIQUID GT SCH (21:54)
[2020-04-15] MEDS: PHENobarbital 20 MG/5 ML UNIT-DOSE CUP GT SCH (21:54)
[2020-04-16] MEDS ORDERED: DEXTROSE 5%-WATER - 50 ML IVPB ONE ×4 (00:38→17:07)
[2020-04-16] MEDS ORDERED: PIPERACILLIN/TAZOBACTAM 3.375 GM VIAL IVPB ONE ×3 (00:38→10:36)
[2020-04-16] MEDS: PIPERACILLIN/TAZOB 3.375 GM 3.375 GM in DEXTROSE 5%-WATER - 50 ML IVPB SCH ×4 (01:06→14:52)
[2020-04-16] MEDS: clonazePAM 0.5 MG TABLET GT SCH ×3 (05:34→22:32)
[2020-04-16 09:47] LABS: BASO % 0.2 % (0-2.0); EOS % 5.2 % (0-4.5); HEMATOCRIT 47.1 % (35.4-49); HEMOGLOBIN 16.1 GM/dL (11.7-16.9); LYMPH % 3.7 % (8-40); MCH 33.7 pg (25.7-33.7); MCHC 34.2 g/dl (32.0-35.9); MEAN CELL VOLUME 98.7 fl (80-96); MONO % 7.4 % (3.8-10.2); NEUT % 83.5 % (42.8-82.8); PLATELET COUNT 255 K/MM3 (134-434); RBC 4.77 M/mm3 (4.00-5.60); RDW 14.3 % (11.9-15.9); WHITE BLOOD COUNT 12.5 K/mm3 (4.0-10.0)
[2020-04-16] MEDS ORDERED: ACETAMINOPHEN 325 MG TABLET (FP) PO ONE (09:47)
[2020-04-16 09:58] LABS: POTASSIUM 4.4 mmol/L (3.5-5.1)
[2020-04-16 10:14] LABS: ALBUMIN 3.4 g/dl (3.4-5.0); CALCIUM 9.2 mg/dL (8.5-10.1)
[2020-04-16 10:15] LABS: BLOOD UREA NITROGEN 16.9 mg/dL (7-18); MAGNESIUM 2.6 mg/dL (1.8-2.4)
[2020-04-16] MEDS: PHENobarbital 20 MG/5 ML UNIT-DOSE CUP GT SCH ×2 (10:15→22:33)
[2020-04-16] MEDS: lamoTRIgine 100 MG TABLET PO SCH ×2 (10:16→22:32)
[2020-04-16 10:18] LABS: CREATININE 0.9 mg/dL (0.55-1.3); PHOSPHOROUS 4.9 mg/dL (2.5-4.9)
[2020-04-16] MEDS: ENOXAPARIN NA (PORCINE) 40 MG/0.4 ML DISP.SYRIN SQ SCH (10:18)
[2020-04-16 10:19] LABS: BILIRUBIN,TOTAL 0.8 mg/dL (0.2-1); TOT PROT 8.8 g/dl (6.4-8.2)
[2020-04-16] MEDS ORDERED: PT OWN MED DRAWER 7, Y5N ONE ×2 (10:37→22:08)
[2020-04-16] MEDS: ACYCLOVIR 200 MG/5 ML LIQUID GT SCH ×2 (10:40→22:33)
[2020-04-16] MEDS ORDERED: ALBUTEROL SO4 2.5/IPRATROPIUM 0.5 INH SOL 3 ML VIAL.NEB. NEB PRN (16:55)
[2020-04-16] MEDS ORDERED: BISACODYL 10 MG SUPP.RECT RC PRN (16:55)
[2020-04-16] MEDS ORDERED: PIPERACILLIN/TAZOBACTAM 2.25 GM VIAL IVPB ONE (17:07)
[2020-04-16] MEDS: DEXTROSE 5%-NORMAL SALINE 1,000 ML IV SCH (17:08)
[2020-04-16] MEDS: PIPERACILLIN/TAZOB 2.25 GM 2.25 GM in DEXTROSE 5%-WATER - 50 ML IVPB SCH (17:12)
[2020-04-16] MEDS ORDERED: amLODIPine BESYLATE 2.5 MG TABLET (FP) GT ONE (18:31)
[2020-04-16] MEDS: BUDESONIDE 0.25 MG/2ML INH SUSP VIAL NEB SCH (20:44)
[2020-04-16] MEDS ORDERED: PATIENT'S OWN MEDICATION (NON-FORMULARY) (Multivitamin [Poly-Vitamin] 1 EACH Tab.Chew) GT SCH (22:00)
[2020-04-16] MEDS: FAMOTIDINE 10 MG TABLET PO SCH (22:32)
[2020-04-16] MEDS: ACETAMINOPHEN 325 MG TABLET (FP) PO PRN (22:32)
[2020-04-16] MEDS: cloBAZam 10 MG TABLET GT SCH (22:32)
[2020-04-16] MEDS: BETHANECHOL CHLORIDE 25 MG TABLET GT SCH (22:32)
[2020-04-16] MEDS: MAGNESIUM HYDROX 2400MG/30ML ORAL SUSPENSION 30 ML CUP GT SCH (22:33)
[2020-04-16] MEDS: DOCUSATE NA 100 MG/10 ML UNIT-DOSE CUPS GT SCH (22:33)
[2020-04-17] MEDS ORDERED: PIPERACILLIN/TAZOBACTAM 2.25 GM VIAL IVPB ONE ×3 (01:57→16:57)
[2020-04-17] MEDS ORDERED: DEXTROSE 5%-WATER - 50 ML IVPB ONE ×3 (01:57→16:57)
[2020-04-17] MEDS: PIPERACILLIN/TAZOB 2.25 GM 2.25 GM in DEXTROSE 5%-WATER - 50 ML IVPB SCH ×3 (02:01→17:03)
[2020-04-17] MEDS ORDERED: PT OWN MED DRAWER 7, Y5N ONE ×5 (05:37→21:34)
[2020-04-17] MEDS: clonazePAM 0.5 MG TABLET GT SCH ×3 (05:38→22:09)
[2020-04-17] MEDS: BETHANECHOL CHLORIDE 25 MG TABLET GT SCH ×3 (05:38→22:11)
[2020-04-17] MEDS: FLUTICASONE PROP 0.05% 16 GM NASAL SPRAY NS SCH (06:19)
[2020-04-17 07:22] LABS: BASO % 0.4 % (0-2.0); HEMATOCRIT 42.6 % (35.4-49); HEMOGLOBIN 14.2 GM/dL (11.7-16.9); LYMPH % 21.8 % (8-40); MCH 33.1 pg (25.7-33.7); MCHC 33.3 g/dl (32.0-35.9); MEAN CELL VOLUME 99.5 fl (80-96); MEAN PLT VOLUME 10.9 fl (7.5-11.1); MONO % 10.1 % (3.8-10.2); NEUT % 57.7 % (42.8-82.8); PLATELET COUNT 217 K/MM3 (134-434); RBC 4.29 M/mm3 (4.00-5.60); RDW 14.1 % (11.9-15.9); WHITE BLOOD COUNT 8.5 K/mm3 (4.0-10.0)
[2020-04-17 07:43] LABS: ALBUMIN 3.1 g/dl (3.4-5.0); BLOOD UREA NITROGEN 13.8 mg/dL (7-18); CALCIUM 8.6 mg/dL (8.5-10.1); CREATININE 0.7 mg/dL (0.55-1.3); MAGNESIUM 2.2 mg/dL (1.8-2.4); PHOSPHOROUS 3.4 mg/dL (2.5-4.9)
[2020-04-17 07:45] LABS: BILIRUBIN,TOTAL 0.3 mg/dL (0.2-1); TOT PROT 7.8 g/dl (6.4-8.2)
[2020-04-17] MEDS: BUDESONIDE 0.25 MG/2ML INH SUSP VIAL NEB SCH ×2 (08:32→20:15)
[2020-04-17] MEDS: DEXTROSE 5%-NORMAL SALINE 1,000 ML IV SCH ×2 (09:38→17:03)
[2020-04-17] MEDS: MAGNESIUM HYDROX 2400MG/30ML ORAL SUSPENSION 30 ML CUP GT SCH ×2 (09:41→22:09)
[2020-04-17] MEDS: PHENobarbital 20 MG/5 ML UNIT-DOSE CUP GT SCH ×2 (09:41→22:07)
[2020-04-17] MEDS: DOCUSATE NA 100 MG/10 ML UNIT-DOSE CUPS GT SCH ×2 (09:42→22:07)
[2020-04-17] MEDS: lamoTRIgine 100 MG TABLET PO SCH ×2 (09:42→22:08)
[2020-04-17] MEDS: ACYCLOVIR 200 MG/5 ML LIQUID GT SCH ×2 (09:43→22:12)
[2020-04-17] MEDS: FAMOTIDINE 10 MG TABLET PO SCH ×2 (09:43→22:10)
[2020-04-17] MEDS: ENOXAPARIN NA (PORCINE) 40 MG/0.4 ML DISP.SYRIN SQ SCH (09:43)
[2020-04-17] MEDS: SODIUM CHLORIDE NASAL SPRAY 44 ML BOTTLE NS SCH ×2 (09:44→22:10)
[2020-04-17] MEDS: MULTIVIT-MINERALS ORAL LIQUID GT SCH (22:07)
[2020-04-17] MEDS: cloBAZam 10 MG TABLET GT SCH (22:12)
[2020-04-18] MEDS ORDERED: PIPERACILLIN/TAZOBACTAM 2.25 GM VIAL IVPB ONE ×3 (01:20→18:28)
[2020-04-18] MEDS: ACETAMINOPHEN 325 MG TABLET (FP) PO PRN (01:25)
[2020-04-18] MEDS: DEXTROSE 5%-NORMAL SALINE 1,000 ML IV SCH ×2 (01:26→22:08)
[2020-04-18] MEDS: PIPERACILLIN/TAZOB 2.25 GM 2.25 GM in DEXTROSE 5%-WATER - 50 ML IVPB SCH ×3 (03:06→18:00)
[2020-04-18] MEDS: clonazePAM 0.5 MG TABLET GT SCH ×3 (06:45→22:07)
[2020-04-18] MEDS: BETHANECHOL CHLORIDE 25 MG TABLET GT SCH ×3 (06:45→22:06)
[2020-04-18] MEDS: FLUTICASONE PROP 0.05% 16 GM NASAL SPRAY NS SCH (06:46)
[2020-04-18] MEDS ORDERED: PT OWN MED DRAWER 7, Y5N ONE ×5 (07:05→19:58)
[2020-04-18] MEDS: BUDESONIDE 0.25 MG/2ML INH SUSP VIAL NEB SCH ×2 (08:34→20:10)
[2020-04-18] MEDS ORDERED: DEXTROSE 5%-WATER - 50 ML IVPB ONE ×2 (10:43→18:29)
[2020-04-18] MEDS: MAGNESIUM HYDROX 2400MG/30ML ORAL SUSPENSION 30 ML CUP GT SCH ×2 (10:49→22:06)
[2020-04-18] MEDS: ENOXAPARIN NA (PORCINE) 40 MG/0.4 ML DISP.SYRIN SQ SCH (10:49)
[2020-04-18] MEDS: DOCUSATE NA 100 MG/10 ML UNIT-DOSE CUPS GT SCH ×2 (10:49→22:06)
[2020-04-18] MEDS: lamoTRIgine 100 MG TABLET PO SCH ×2 (10:49→22:07)
[2020-04-18] MEDS: PHENobarbital 20 MG/5 ML UNIT-DOSE CUP GT SCH ×2 (10:50→22:06)
[2020-04-18] MEDS: FAMOTIDINE 40 MG/5 ML ORAL SUSPENSION NR SCH ×2 (10:50→22:07)
[2020-04-18] MEDS: ACYCLOVIR 200 MG/5 ML LIQUID GT SCH ×2 (10:50→22:07)
[2020-04-18] MEDS: SODIUM CHLORIDE NASAL SPRAY 44 ML BOTTLE NS SCH ×2 (10:51→22:08)
[2020-04-18] MEDS: SODIUM CHLORIDE 1,000 ML IV SCH (12:15)
[2020-04-18] MEDS: MULTIVIT-MINERALS ORAL LIQUID GT SCH (22:07)
[2020-04-18] MEDS: cloBAZam 10 MG TABLET GT SCH (22:07)
[2020-04-19] MEDS ORDERED: PIPERACILLIN/TAZOBACTAM 2.25 GM VIAL IVPB ONE ×3 (00:59→17:10)
[2020-04-19] MEDS ORDERED: DEXTROSE 5%-WATER - 50 ML IVPB ONE ×3 (01:00→17:10)
[2020-04-19] MEDS: PIPERACILLIN/TAZOB 2.25 GM 2.25 GM in DEXTROSE 5%-WATER - 50 ML IVPB SCH ×3 (02:11→17:16)
[2020-04-19] MEDS: BETHANECHOL CHLORIDE 25 MG TABLET GT SCH ×3 (06:21→21:14)
[2020-04-19] MEDS: clonazePAM 0.5 MG TABLET GT SCH ×3 (06:21→21:16)
[2020-04-19] MEDS: FLUTICASONE PROP 0.05% 16 GM NASAL SPRAY NS SCH (06:21)
[2020-04-19 06:55] LABS: BASO % 0.5 % (0-2.0); EOS % 7.1 % (0-4.5); HEMATOCRIT 36.8 % (35.4-49); HEMOGLOBIN 12.2 GM/dL (11.7-16.9); LYMPH % 30.3 % (8-40); MCH 33.2 pg (25.7-33.7); MCHC 33.1 g/dl (32.0-35.9); MEAN CELL VOLUME 100.2 fl (80-96); MEAN PLT VOLUME 10.7 fl (7.5-11.1); MONO % 8.2 % (3.8-10.2); NEUT % 53.9 % (42.8-82.8); PLATELET COUNT 190 K/MM3 (134-434); RBC 3.67 M/mm3 (4.00-5.60); RDW 14.2 % (11.9-15.9); WHITE BLOOD COUNT 6.1 K/mm3 (4.0-10.0)
[2020-04-19 06:59] LABS: POTASSIUM 3.9 mmol/L (3.5-5.1)
[2020-04-19 07:02] LABS: CALCIUM 8.5 mg/dL (8.5-10.1)
[2020-04-19 07:03] LABS: ALBUMIN 2.8 g/dl (3.4-5.0); BLOOD UREA NITROGEN 7.4 mg/dL (7-18)
[2020-04-19 07:06] LABS: BILIRUBIN,TOTAL 0.6 mg/dL (0.2-1); CREATININE 0.5 mg/dL (0.55-1.3); PHOSPHOROUS 2.7 mg/dL (2.5-4.9)
[2020-04-19 07:07] LABS: TOT PROT 6.9 g/dl (6.4-8.2)
[2020-04-19 07:10] LABS: MAGNESIUM 1.9 mg/dL (1.8-2.4)
[2020-04-19] MEDS ORDERED: BUDESONIDE 0.5 MG/2 ML INH SUSP VIAL NEB ONE (07:50)
[2020-04-19] MEDS: BUDESONIDE 0.25 MG/2ML INH SUSP VIAL NEB SCH ×2 (08:10→20:20)
[2020-04-19] MEDS ORDERED: PT OWN MED DRAWER 7, Y5N ONE ×6 (09:46→21:34)
[2020-04-19] MEDS: ENOXAPARIN NA (PORCINE) 40 MG/0.4 ML DISP.SYRIN SQ SCH (10:02)
[2020-04-19] MEDS: PHENobarbital 20 MG/5 ML UNIT-DOSE CUP GT SCH ×2 (10:02→21:15)
[2020-04-19] MEDS: DOCUSATE NA 100 MG/10 ML UNIT-DOSE CUPS GT SCH ×2 (10:02→21:16)
[2020-04-19] MEDS: MAGNESIUM HYDROX 2400MG/30ML ORAL SUSPENSION 30 ML CUP GT SCH ×2 (10:03→21:16)
[2020-04-19] MEDS: lamoTRIgine 100 MG TABLET PO SCH ×2 (10:03→21:14)
[2020-04-19] MEDS: FAMOTIDINE 40 MG/5 ML ORAL SUSPENSION NR SCH ×2 (10:06→21:15)
[2020-04-19] MEDS: SODIUM CHLORIDE NASAL SPRAY 44 ML BOTTLE NS SCH ×2 (10:06→21:16)
[2020-04-19] MEDS: ACYCLOVIR 200 MG/5 ML LIQUID GT SCH ×2 (10:07→21:15)
[2020-04-19] MEDS: SODIUM CHLORIDE 1,000 ML IV SCH ×2 (13:46→17:21)
[2020-04-19] MEDS: cloBAZam 10 MG TABLET GT SCH (21:14)
[2020-04-19] MEDS: MULTIVIT-MINERALS ORAL LIQUID GT SCH (21:15)
[2020-04-20] MEDS ORDERED: DEXTROSE 5%-WATER - 50 ML IVPB ONE ×3 (01:10→17:02)
[2020-04-20] MEDS ORDERED: PIPERACILLIN/TAZOBACTAM 2.25 GM VIAL IVPB ONE ×3 (01:10→17:02)
[2020-04-20] MEDS: PIPERACILLIN/TAZOB 2.25 GM 2.25 GM in DEXTROSE 5%-WATER - 50 ML IVPB SCH ×3 (01:18→17:07)
[2020-04-20] MEDS ORDERED: PT OWN MED DRAWER 7, Y5N ONE ×6 (06:02→22:20)
[2020-04-20] MEDS: BETHANECHOL CHLORIDE 25 MG TABLET GT SCH ×2 (06:03→14:09)
[2020-04-20] MEDS: clonazePAM 0.5 MG TABLET GT SCH ×2 (06:03→14:09)
[2020-04-20] MEDS: FLUTICASONE PROP 0.05% 16 GM NASAL SPRAY NS SCH (06:42)
[2020-04-20 06:55] LABS: BASO % 0.6 % (0-2.0); EOS % 7.2 % (0-4.5); HEMATOCRIT 37.3 % (35.4-49); HEMOGLOBIN 12.2 GM/dL (11.7-16.9); LYMPH % 38.4 % (8-40); MCH 32.7 pg (25.7-33.7); MCHC 32.7 g/dl (32.0-35.9); MEAN CELL VOLUME 99.9 fl (80-96); MEAN PLT VOLUME 10.1 fl (7.5-11.1); MONO % 8.9 % (3.8-10.2); NEUT % 44.9 % (42.8-82.8); PLATELET COUNT 214 K/MM3 (134-434); RBC 3.74 M/mm3 (4.00-5.60); RDW 14.1 % (11.9-15.9); WHITE BLOOD COUNT 5.2 K/mm3 (4.0-10.0)
[2020-04-20 07:05] LABS: ALBUMIN 2.9 g/dl (3.4-5.0); CALCIUM 8.6 mg/dL (8.5-10.1)
[2020-04-20 07:06] LABS: BLOOD UREA NITROGEN 6.2 mg/dL (7-18); MAGNESIUM 1.8 mg/dL (1.8-2.4)
[2020-04-20 07:08] LABS: PHOSPHOROUS 4.3 mg/dL (2.5-4.9)
[2020-04-20 07:10] LABS: BILIRUBIN,TOTAL 0.2 mg/dL (0.2-1); CREATININE 0.4 mg/dL (0.55-1.3); TOT PROT 7.1 g/dl (6.4-8.2)
[2020-04-20] MEDS: BUDESONIDE 0.25 MG/2ML INH SUSP VIAL NEB SCH ×2 (07:52→20:03)
[2020-04-20] MEDS: PHENobarbital 20 MG/5 ML UNIT-DOSE CUP GT SCH (10:45)
[2020-04-20] MEDS: DOCUSATE NA 100 MG/10 ML UNIT-DOSE CUPS GT SCH (10:45)
[2020-04-20] MEDS: AMINO ACIDS/PROTEIN HYDROLYS 30 ML LIQUID.PKT PEG SCH (10:46)
[2020-04-20] MEDS: MAGNESIUM HYDROX 2400MG/30ML ORAL SUSPENSION 30 ML CUP GT SCH (10:46)
[2020-04-20] MEDS: lamoTRIgine 100 MG TABLET PO SCH (10:46)
[2020-04-20] MEDS: ENOXAPARIN NA (PORCINE) 40 MG/0.4 ML DISP.SYRIN SQ SCH (10:46)
[2020-04-20] MEDS: ACYCLOVIR 200 MG/5 ML LIQUID GT SCH (10:48)
[2020-04-20] MEDS: FAMOTIDINE 40 MG/5 ML ORAL SUSPENSION NR SCH (10:48)
[2020-04-20] MEDS: SODIUM CHLORIDE NASAL SPRAY 44 ML BOTTLE NS SCH ×2 (10:48→22:55)
[2020-04-20] MEDS: SODIUM CHLORIDE 1,000 ML IV SCH (12:50)
[2020-04-20] MEDS ORDERED: LIPASE/PROTEASE/AMYLASE 6,000 UNIT CAPSULE NR ONE (23:45)
[2020-04-21] MEDS: MULTIVIT-MINERALS ORAL LIQUID GT SCH ×2 (00:46→21:47)
[2020-04-21] MEDS: clonazePAM 0.5 MG TABLET GT SCH ×4 (00:47→21:48)
[2020-04-21] MEDS: DOCUSATE NA 100 MG/10 ML UNIT-DOSE CUPS GT SCH ×3 (00:47→21:47)
[2020-04-21] MEDS: lamoTRIgine 100 MG TABLET PO SCH ×3 (00:48→21:47)
[2020-04-21] MEDS: cloBAZam 10 MG TABLET GT SCH ×2 (00:48→21:48)
[2020-04-21] MEDS: MAGNESIUM HYDROX 2400MG/30ML ORAL SUSPENSION 30 ML CUP GT SCH ×3 (00:48→21:47)
[2020-04-21] MEDS: FAMOTIDINE 40 MG/5 ML ORAL SUSPENSION NR SCH ×3 (00:48→21:47)
[2020-04-21] MEDS: PHENobarbital 20 MG/5 ML UNIT-DOSE CUP GT SCH ×3 (00:57→21:47)
[2020-04-21] MEDS: BETHANECHOL CHLORIDE 25 MG TABLET GT SCH ×4 (00:57→21:47)
[2020-04-21] MEDS: ACYCLOVIR 200 MG/5 ML LIQUID GT SCH ×3 (00:59→21:47)
[2020-04-21] MEDS ORDERED: PIPERACILLIN/TAZOBACTAM 2.25 GM VIAL IVPB ONE ×3 (01:39→15:57)
[2020-04-21] MEDS ORDERED: DEXTROSE 5%-WATER - 50 ML IVPB ONE ×3 (01:39→15:57)
[2020-04-21] MEDS: SODIUM CHLORIDE 1,000 ML IV SCH ×2 (01:43→10:20)
[2020-04-21] MEDS: PIPERACILLIN/TAZOB 2.25 GM 2.25 GM in DEXTROSE 5%-WATER - 50 ML IVPB SCH ×3 (01:44→17:26)
[2020-04-21] MEDS: SODIUM CHLORIDE FOR INHALATION 3 ML VIAL.NEB IH SCH ×2 (01:50→14:40)
[2020-04-21] MEDS: FLUTICASONE PROP 0.05% 16 GM NASAL SPRAY NS SCH (06:39)
[2020-04-21 07:07] LABS: BASO % 0.6 % (0-2.0); EOS % 5.4 % (0-4.5); HEMATOCRIT 38.6 % (35.4-49); HEMOGLOBIN 12.5 GM/dL (11.7-16.9); LYMPH % 34.5 % (8-40); MCH 32.2 pg (25.7-33.7); MCHC 32.4 g/dl (32.0-35.9); MEAN CELL VOLUME 99.3 fl (80-96); MEAN PLT VOLUME 10.3 fl (7.5-11.1); MONO % 6.6 % (3.8-10.2); NEUT % 52.9 % (42.8-82.8); PLATELET COUNT 236 K/MM3 (134-434); RBC 3.89 M/mm3 (4.00-5.60); RDW 13.8 % (11.9-15.9); WHITE BLOOD COUNT 5.9 K/mm3 (4.0-10.0)
[2020-04-21 07:18] LABS: POTASSIUM 3.9 mmol/L (3.5-5.1)
[2020-04-21 07:29] LABS: CALCIUM 9.1 mg/dL (8.5-10.1)
[2020-04-21 07:30] LABS: ALBUMIN 3.1 g/dl (3.4-5.0); BLOOD UREA NITROGEN 8.9 mg/dL (7-18); MAGNESIUM 1.7 mg/dL (1.8-2.4)
[2020-04-21 07:33] LABS: CREATININE 0.5 mg/dL (0.55-1.3); PHOSPHOROUS 3.5 mg/dL (2.5-4.9)
[2020-04-21 07:34] LABS: BILIRUBIN,TOTAL 0.4 mg/dL (0.2-1); TOT PROT 7.8 g/dl (6.4-8.2)
[2020-04-21] MEDS: BUDESONIDE 0.25 MG/2ML INH SUSP VIAL NEB SCH ×2 (08:13→20:05)
[2020-04-21] MEDS ORDERED: PT OWN MED DRAWER 7, Y5N ONE ×4 (09:59→21:44)
[2020-04-21] MEDS: ENOXAPARIN NA (PORCINE) 40 MG/0.4 ML DISP.SYRIN SQ SCH (10:19)
[2020-04-21] MEDS: SODIUM CHLORIDE NASAL SPRAY 44 ML BOTTLE NS SCH ×2 (10:19→21:51)
[2020-04-21] MEDS: AMINO ACIDS/PROTEIN HYDROLYS 30 ML LIQUID.PKT PEG SCH (10:20)
[2020-04-21] MEDS ORDERED: MAGNESIUM OXIDE 400 MG TABLET (FP) PEG ONE (17:45)
[2020-04-22] MEDS ORDERED: DEXTROSE 5%-WATER - 50 ML IVPB ONE ×3 (01:21→17:14)
[2020-04-22] MEDS ORDERED: PIPERACILLIN/TAZOBACTAM 2.25 GM VIAL IVPB ONE ×3 (01:21→17:14)
[2020-04-22] MEDS: PIPERACILLIN/TAZOB 2.25 GM 2.25 GM in DEXTROSE 5%-WATER - 50 ML IVPB SCH ×3 (01:25→17:47)
[2020-04-22] MEDS ORDERED: PT OWN MED DRAWER 7, Y5N ONE ×3 (05:22→21:23)
[2020-04-22] MEDS: SODIUM CHLORIDE FOR INHALATION 3 ML VIAL.NEB IH SCH (05:25)
[2020-04-22] MEDS: BETHANECHOL CHLORIDE 25 MG TABLET GT SCH ×3 (05:25→21:28)
[2020-04-22] MEDS: clonazePAM 0.5 MG TABLET GT SCH ×2 (05:25→13:33)
[2020-04-22] MEDS: FLUTICASONE PROP 0.05% 16 GM NASAL SPRAY NS SCH (06:00)
[2020-04-22] MEDS: SODIUM CHLORIDE 1,000 ML IV SCH ×2 (06:00→13:33)
[2020-04-22] MEDS: BUDESONIDE 0.25 MG/2ML INH SUSP VIAL NEB SCH ×2 (08:46→20:01)
[2020-04-22] MEDS: PHENobarbital 20 MG/5 ML UNIT-DOSE CUP GT SCH (09:57)
[2020-04-22] MEDS: DOCUSATE NA 100 MG/10 ML UNIT-DOSE CUPS GT SCH ×2 (09:57→21:27)
[2020-04-22] MEDS: MAGNESIUM HYDROX 2400MG/30ML ORAL SUSPENSION 30 ML CUP GT SCH ×2 (09:57→21:26)
[2020-04-22] MEDS: AMINO ACIDS/PROTEIN HYDROLYS 30 ML LIQUID.PKT PEG SCH (09:58)
[2020-04-22] MEDS: lamoTRIgine 100 MG TABLET PO SCH ×2 (09:58→21:26)
[2020-04-22] MEDS: ENOXAPARIN NA (PORCINE) 40 MG/0.4 ML DISP.SYRIN SQ SCH (09:59)
[2020-04-22] MEDS: SODIUM CHLORIDE NASAL SPRAY 44 ML BOTTLE NS SCH ×2 (10:00→21:29)
[2020-04-22] MEDS: FAMOTIDINE 40 MG/5 ML ORAL SUSPENSION NR SCH ×2 (10:01→21:28)
[2020-04-22] MEDS: ACYCLOVIR 200 MG/5 ML LIQUID GT SCH ×2 (10:02→22:28)
[2020-04-22] MEDS: MULTIVIT-MINERALS ORAL LIQUID GT SCH (21:27)
[2020-04-23] MEDS ORDERED: PIPERACILLIN/TAZOBACTAM 2.25 GM VIAL IVPB ONE ×3 (01:38→16:30)
[2020-04-23] MEDS ORDERED: DEXTROSE 5%-WATER - 50 ML IVPB ONE ×3 (01:39→16:30)
[2020-04-23] MEDS: PIPERACILLIN/TAZOB 2.25 GM 2.25 GM in DEXTROSE 5%-WATER - 50 ML IVPB SCH ×3 (01:42→17:04)
[2020-04-23] MEDS: BETHANECHOL CHLORIDE 25 MG TABLET GT SCH ×3 (05:26→21:12)
[2020-04-23] MEDS: SODIUM CHLORIDE 1,000 ML IV SCH ×2 (05:27→13:07)
[2020-04-23] MEDS: FLUTICASONE PROP 0.05% 16 GM NASAL SPRAY NS SCH (06:37)
[2020-04-23 07:15] LABS: POTASSIUM 3.9 mmol/L (3.5-5.1)
[2020-04-23 07:18] LABS: CALCIUM 8.9 mg/dL (8.5-10.1)
[2020-04-23 07:19] LABS: ALBUMIN 3.2 g/dl (3.4-5.0); BLOOD UREA NITROGEN 6.8 mg/dL (7-18); MAGNESIUM 1.9 mg/dL (1.8-2.4)
[2020-04-23 07:22] LABS: CREATININE 0.5 mg/dL (0.55-1.3)
[2020-04-23 07:23] LABS: BILIRUBIN,TOTAL 0.6 mg/dL (0.2-1)
[2020-04-23 07:24] LABS: TOT PROT 7.7 g/dl (6.4-8.2)
[2020-04-23] MEDS: BUDESONIDE 0.25 MG/2ML INH SUSP VIAL NEB SCH ×2 (07:40→19:32)
[2020-04-23] MEDS ORDERED: PT OWN MED DRAWER 7, Y5N ONE (07:48)
[2020-04-23 09:32] LABS: BASO % 0.7 % (0-2.0); EOS % 2.6 % (0-4.5); HEMATOCRIT 38.7 % (35.4-49); HEMOGLOBIN 12.8 GM/dL (11.7-16.9); LYMPH % 25.1 % (8-40); MCH 33.1 pg (25.7-33.7); MCHC 33.2 g/dl (32.0-35.9); MEAN CELL VOLUME 99.6 fl (80-96); MEAN PLT VOLUME 11.3 fl (7.5-11.1); MONO % 7.2 % (3.8-10.2); NEUT % 64.4 % (42.8-82.8); PLATELET COUNT 268 K/MM3 (134-434); RBC 3.88 M/mm3 (4.00-5.60); RDW 13.9 % (11.9-15.9); WHITE BLOOD COUNT 6.7 K/mm3 (4.0-10.0)
[2020-04-23] MEDS: MAGNESIUM HYDROX 2400MG/30ML ORAL SUSPENSION 30 ML CUP GT SCH ×2 (10:07→21:10)
[2020-04-23] MEDS: AMINO ACIDS/PROTEIN HYDROLYS 30 ML LIQUID.PKT PEG SCH (10:07)
[2020-04-23] MEDS: ENOXAPARIN NA (PORCINE) 40 MG/0.4 ML DISP.SYRIN SQ SCH (10:07)
[2020-04-23] MEDS: lamoTRIgine 100 MG TABLET PO SCH ×2 (10:07→21:12)
[2020-04-23] MEDS: DOCUSATE NA 100 MG/10 ML UNIT-DOSE CUPS GT SCH ×2 (10:07→21:10)
[2020-04-23] MEDS: ACYCLOVIR 200 MG/5 ML LIQUID GT SCH ×2 (10:10→21:12)
[2020-04-23] MEDS: SODIUM CHLORIDE NASAL SPRAY 44 ML BOTTLE NS SCH ×2 (10:11→22:35)
[2020-04-23] MEDS: FAMOTIDINE 40 MG/5 ML ORAL SUSPENSION NR SCH ×2 (10:11→21:12)
[2020-04-23] MEDS ORDERED: diazePAM RECTAL GEL 7.5 MG KIT (PRE-CALIBRATED) RC PRN (11:41)
[2020-04-23] MEDS: clonazePAM 0.5 MG TABLET GT SCH ×2 (14:05→21:11)
[2020-04-23] MEDS: SODIUM CHLORIDE FOR INHALATION 3 ML VIAL.NEB IH SCH (14:45)
[2020-04-23] MEDS: PHENobarbital 20 MG/5 ML UNIT-DOSE CUP GT SCH (21:10)
[2020-04-23] MEDS: MULTIVIT-MINERALS ORAL LIQUID GT SCH (21:11)
[2020-04-24] MEDS ORDERED: PIPERACILLIN/TAZOBACTAM 2.25 GM VIAL IVPB ONE ×3 (02:17→17:08)
[2020-04-24] MEDS: PIPERACILLIN/TAZOB 2.25 GM 2.25 GM in DEXTROSE 5%-WATER - 50 ML IVPB SCH ×3 (02:18→17:44)
[2020-04-24] MEDS ORDERED: DEXTROSE 5%-WATER - 50 ML IVPB ONE ×3 (02:18→17:08)
[2020-04-24] MEDS ORDERED: PT OWN MED DRAWER 7, Y5N ONE ×3 (03:12→23:36)
[2020-04-24] MEDS: SODIUM CHLORIDE FOR INHALATION 3 ML VIAL.NEB IH SCH ×3 (06:05→23:41)
[2020-04-24] MEDS: BETHANECHOL CHLORIDE 25 MG TABLET GT SCH ×3 (06:06→23:40)
[2020-04-24] MEDS: clonazePAM 0.5 MG TABLET GT SCH ×3 (06:06→23:39)
[2020-04-24] MEDS: FLUTICASONE PROP 0.05% 16 GM NASAL SPRAY NS SCH (06:07)
[2020-04-24 07:44] LABS: BASO % 0.6 % (0-2.0); EOS % 1.5 % (0-4.5); HEMATOCRIT 36.5 % (35.4-49); HEMOGLOBIN 12.6 GM/dL (11.7-16.9); LYMPH % 19.3 % (8-40); MCH 33.9 pg (25.7-33.7); MCHC 34.6 g/dl (32.0-35.9); MEAN PLT VOLUME 10.2 fl (7.5-11.1); MONO % 9.4 % (3.8-10.2); NEUT % 69.2 % (42.8-82.8); PLATELET COUNT 287 K/MM3 (134-434); RBC 3.72 M/mm3 (4.00-5.60); RDW 13.5 % (11.9-15.9); WHITE BLOOD COUNT 7.7 K/mm3 (4.0-10.0)
[2020-04-24 07:58] LABS: POTASSIUM 3.6 mmol/L (3.5-5.1)
[2020-04-24 08:03] LABS: ALBUMIN 3.2 g/dl (3.4-5.0); CALCIUM 8.7 mg/dL (8.5-10.1); MAGNESIUM 2.1 mg/dL (1.8-2.4)
[2020-04-24 08:04] LABS: BLOOD UREA NITROGEN 6.2 mg/dL (7-18)
[2020-04-24 08:06] LABS: CREATININE 0.6 mg/dL (0.55-1.3); PHOSPHOROUS 3.2 mg/dL (2.5-4.9)
[2020-04-24 08:07] LABS: BILIRUBIN,TOTAL 0.4 mg/dL (0.2-1); TOT PROT 7.8 g/dl (6.4-8.2)
[2020-04-24] MEDS ORDERED: BUDESONIDE 0.5 MG/2 ML INH SUSP VIAL NEB ONE (09:18)
[2020-04-24] MEDS: BUDESONIDE 0.25 MG/2ML INH SUSP VIAL NEB SCH ×2 (09:20→20:35)
[2020-04-24] MEDS ORDERED: ACETAMINOPHEN 650 MG SUPP.RECT RC ONE (10:00)
[2020-04-24] MEDS: SODIUM CHLORIDE 1,000 ML IV SCH (10:27)
[2020-04-24] MEDS: ACYCLOVIR 200 MG/5 ML LIQUID GT SCH ×2 (10:28→23:40)
[2020-04-24] MEDS: PHENobarbital 20 MG/5 ML UNIT-DOSE CUP GT SCH ×2 (10:28→23:39)
[2020-04-24] MEDS: DOCUSATE NA 100 MG/10 ML UNIT-DOSE CUPS GT SCH ×2 (10:28→23:38)
[2020-04-24] MEDS: FAMOTIDINE 40 MG/5 ML ORAL SUSPENSION NR SCH ×2 (10:29→23:40)
[2020-04-24] MEDS: AMINO ACIDS/PROTEIN HYDROLYS 30 ML LIQUID.PKT PEG SCH (10:29)
[2020-04-24] MEDS: SIMETHICONE 40 MG/0.6 ML BOTTLE GT PRN (10:29)
[2020-04-24] MEDS: lamoTRIgine 100 MG TABLET PO SCH ×2 (10:30→23:38)
[2020-04-24] MEDS: ENOXAPARIN NA (PORCINE) 40 MG/0.4 ML DISP.SYRIN SQ SCH (10:30)
[2020-04-24] MEDS: SODIUM CHLORIDE NASAL SPRAY 44 ML BOTTLE NS SCH ×2 (10:30→23:40)
[2020-04-24] MEDS: MAGNESIUM HYDROX 2400MG/30ML ORAL SUSPENSION 30 ML CUP GT SCH ×3 (10:30→23:48)
[2020-04-24 12:48] LABS: URINE APPEARANCE CLOUDY; URINE BILIRUBIN NEGATIVE (NEGATIVE); URINE COLOR YELLOW; URINE GLUCOSE (UA) NEGATIVE (NEGATIVE); URINE KETONE NEGATIVE (NEGATIVE); URINE LEUK ESTERASE NEGATIVE (NEGATIVE); URINE NITRITE NEGATIVE (NEGATIVE); URINE PROTEIN NEGATIVE (NEGATIVE); URINE UROBILINOGEN 0.2 mg/dL (0.2-1.0)
[2020-04-24] MEDS: ACETAMINOPHEN 650 MG/20.3 ML ORAL SOLUTION (CUPS) PO PRN ×2 (20:44→20:48)
[2020-04-24] MEDS: MULTIVIT-MINERALS ORAL LIQUID GT SCH (23:41)
[2020-04-25] MEDS ORDERED: PIPERACILLIN/TAZOBACTAM 2.25 GM VIAL IVPB ONE ×2 (00:59→09:00)
[2020-04-25] MEDS ORDERED: DEXTROSE 5%-WATER - 50 ML IVPB ONE ×2 (01:00→09:00)
[2020-04-25] MEDS: PIPERACILLIN/TAZOB 2.25 GM 2.25 GM in DEXTROSE 5%-WATER - 50 ML IVPB SCH ×2 (01:46→09:21)
[2020-04-25] MEDS ORDERED: PT OWN MED DRAWER 7, Y5N ONE ×5 (06:57→22:56)
[2020-04-25] MEDS: clonazePAM 0.5 MG TABLET GT SCH ×3 (06:57→22:57)
[2020-04-25] MEDS: FLUTICASONE PROP 0.05% 16 GM NASAL SPRAY NS SCH (06:57)
[2020-04-25] MEDS: BETHANECHOL CHLORIDE 25 MG TABLET GT SCH ×3 (06:57→22:57)
[2020-04-25] MEDS: BUDESONIDE 0.25 MG/2ML INH SUSP VIAL NEB SCH ×2 (07:45→20:00)
[2020-04-25] MEDS: DOCUSATE NA 100 MG/10 ML UNIT-DOSE CUPS GT SCH ×2 (09:20→22:57)
[2020-04-25] MEDS: MAGNESIUM HYDROX 2400MG/30ML ORAL SUSPENSION 30 ML CUP GT SCH ×2 (09:20→22:59)
[2020-04-25] MEDS: PHENobarbital 20 MG/5 ML UNIT-DOSE CUP GT SCH ×2 (09:20→22:57)
[2020-04-25] MEDS: ACETAMINOPHEN 650 MG/20.3 ML ORAL SOLUTION (CUPS) PO PRN (09:21)
[2020-04-25] MEDS: AMINO ACIDS/PROTEIN HYDROLYS 30 ML LIQUID.PKT PEG SCH (09:22)
[2020-04-25] MEDS: lamoTRIgine 100 MG TABLET PO SCH ×2 (09:22→22:57)
[2020-04-25] MEDS: ENOXAPARIN NA (PORCINE) 40 MG/0.4 ML DISP.SYRIN SQ SCH (09:22)
[2020-04-25] MEDS: ACYCLOVIR 200 MG/5 ML LIQUID GT SCH (09:23)
[2020-04-25] MEDS: SODIUM CHLORIDE NASAL SPRAY 44 ML BOTTLE NS SCH ×2 (09:24→23:59)
[2020-04-25] MEDS: FAMOTIDINE 40 MG/5 ML ORAL SUSPENSION NR SCH ×2 (10:22→22:58)
[2020-04-25 12:16] LABS: BASO % 0.7 % (0-2.0); EOS % 2.1 % (0-4.5); HEMATOCRIT 35.8 % (35.4-49); HEMOGLOBIN 11.7 GM/dL (11.7-16.9); LYMPH % 28.2 % (8-40); MCH 32.5 pg (25.7-33.7); MCHC 32.7 g/dl (32.0-35.9); MEAN CELL VOLUME 99.5 fl (80-96); MEAN PLT VOLUME 10.5 fl (7.5-11.1); MONO % 8.3 % (3.8-10.2); NEUT % 60.7 % (42.8-82.8); PLATELET COUNT 307 K/MM3 (134-434); RDW 13.8 % (11.9-15.9); WHITE BLOOD COUNT 8.1 K/mm3 (4.0-10.0)
[2020-04-25 12:36] LABS: POTASSIUM 3.5 mmol/L (3.5-5.1)
[2020-04-25 12:39] LABS: CALCIUM 8.5 mg/dL (8.5-10.1)
[2020-04-25 12:40] LABS: BLOOD UREA NITROGEN 6.3 mg/dL (7-18); MAGNESIUM 1.9 mg/dL (1.8-2.4)
[2020-04-25 12:43] LABS: CREATININE 0.5 mg/dL (0.55-1.3); PHOSPHOROUS 4.1 mg/dL (2.5-4.9)
[2020-04-25 12:44] LABS: BILIRUBIN,TOTAL 0.4 mg/dL (0.2-1); TOT PROT 7.3 g/dl (6.4-8.2)
[2020-04-25] MEDS: valACYclovir HCL 500 MG TABLET (FP) PO SCH ×2 (12:44→22:57)
[2020-04-25] MEDS: SODIUM CHLORIDE 1,000 ML IV SCH (12:44)
[2020-04-25] MEDS: SODIUM CHLORIDE FOR INHALATION 3 ML VIAL.NEB IH SCH (16:01)
[2020-04-25] MEDS ORDERED: SODIUM CHLORIDE 1,000 ML IV SCH (22:25)
[2020-04-25] MEDS: MULTIVIT-MINERALS ORAL LIQUID GT SCH (22:58)
[2020-04-25] MEDS: SIMETHICONE 40 MG/0.6 ML BOTTLE GT PRN (22:58)
[2020-04-26] MEDS ORDERED: PT OWN MED DRAWER 7, Y5N ONE ×4 (05:51→23:45)
[2020-04-26] MEDS: BETHANECHOL CHLORIDE 25 MG TABLET GT SCH ×3 (05:54→22:57)
[2020-04-26] MEDS: clonazePAM 0.5 MG TABLET GT SCH ×3 (05:54→22:55)
[2020-04-26] MEDS ORDERED: SODIUM CHLORIDE 1,000 ML IV STA (07:11)
[2020-04-26] MEDS: BUDESONIDE 0.25 MG/2ML INH SUSP VIAL NEB SCH ×2 (07:39→20:57)
[2020-04-26 07:51] LABS: BASO % 0.7 % (0-2.0); EOS % 2.9 % (0-4.5); HEMATOCRIT 34.1 % (35.4-49); HEMOGLOBIN 11.4 GM/dL (11.7-16.9); MCH 33.3 pg (25.7-33.7); MCHC 33.5 g/dl (32.0-35.9); MEAN CELL VOLUME 99.4 fl (80-96); MEAN PLT VOLUME 10.2 fl (7.5-11.1); MONO % 10.6 % (3.8-10.2); NEUT % 46.8 % (42.8-82.8); PLATELET COUNT 295 K/MM3 (134-434); RBC 3.43 M/mm3 (4.00-5.60); WHITE BLOOD COUNT 5.9 K/mm3 (4.0-10.0)
[2020-04-26 07:56] LABS: POTASSIUM 4.1 mmol/L (3.5-5.1)
[2020-04-26 08:07] LABS: CALCIUM 8.8 mg/dL (8.5-10.1)
[2020-04-26 08:08] LABS: BLOOD UREA NITROGEN 5.5 mg/dL (7-18); MAGNESIUM 1.8 mg/dL (1.8-2.4)
[2020-04-26 08:11] LABS: CREATININE 0.5 mg/dL (0.55-1.3); PHOSPHOROUS 3.8 mg/dL (2.5-4.9)
[2020-04-26 08:12] LABS: BILIRUBIN,TOTAL 0.4 mg/dL (0.2-1); TOT PROT 7.2 g/dl (6.4-8.2)
[2020-04-26] MEDS: FLUTICASONE PROP 0.05% 16 GM NASAL SPRAY NS SCH (08:39)
[2020-04-26] MEDS: MAGNESIUM HYDROX 2400MG/30ML ORAL SUSPENSION 30 ML CUP GT SCH ×2 (10:56→22:54)
[2020-04-26] MEDS: AMINO ACIDS/PROTEIN HYDROLYS 30 ML LIQUID.PKT PEG SCH (10:56)
[2020-04-26] MEDS: ENOXAPARIN NA (PORCINE) 40 MG/0.4 ML DISP.SYRIN SQ SCH (10:57)
[2020-04-26] MEDS: PHENobarbital 20 MG/5 ML UNIT-DOSE CUP GT SCH ×2 (10:57→22:54)
[2020-04-26] MEDS: SODIUM CHLORIDE NASAL SPRAY 44 ML BOTTLE NS SCH ×2 (10:58→22:57)
[2020-04-26] MEDS: lamoTRIgine 100 MG TABLET PO SCH ×2 (10:58→22:55)
[2020-04-26] MEDS: DOCUSATE NA 100 MG/10 ML UNIT-DOSE CUPS GT SCH ×2 (10:58→22:54)
[2020-04-26] MEDS: valACYclovir HCL 500 MG TABLET (FP) PO SCH ×2 (10:58→22:55)
[2020-04-26] MEDS: FAMOTIDINE 40 MG/5 ML ORAL SUSPENSION NR SCH ×2 (10:58→22:56)
[2020-04-26] MEDS: ACETAMINOPHEN 650 MG/20.3 ML ORAL SOLUTION (CUPS) PO PRN (12:37)
[2020-04-26] MEDS: SODIUM CHLORIDE FOR INHALATION 3 ML VIAL.NEB IH SCH ×2 (15:30→21:05)
[2020-04-26] MEDS: MULTIVIT-MINERALS ORAL LIQUID GT SCH (22:56)
[2020-04-26] MEDS: SIMETHICONE 40 MG/0.6 ML BOTTLE GT PRN (22:59)
[2020-04-27] MEDS: FLUTICASONE PROP 0.05% 16 GM NASAL SPRAY NS SCH (06:34)
[2020-04-27] MEDS: clonazePAM 0.5 MG TABLET GT SCH ×3 (06:34→22:27)
[2020-04-27] MEDS: BETHANECHOL CHLORIDE 25 MG TABLET GT SCH ×3 (06:34→22:31)
[2020-04-27] MEDS: BUDESONIDE 0.25 MG/2ML INH SUSP VIAL NEB SCH ×2 (08:00→20:30)
[2020-04-27] MEDS: SODIUM CHLORIDE FOR INHALATION 3 ML VIAL.NEB IH SCH ×2 (08:00→20:30)
[2020-04-27] MEDS ORDERED: PT OWN MED DRAWER 7, Y5N ONE ×3 (08:56→13:38)
[2020-04-27] MEDS: AMINO ACIDS/PROTEIN HYDROLYS 30 ML LIQUID.PKT PEG SCH (09:34)
[2020-04-27] MEDS: PHENobarbital 20 MG/5 ML UNIT-DOSE CUP GT SCH ×2 (09:35→22:28)
[2020-04-27] MEDS: FAMOTIDINE 40 MG/5 ML ORAL SUSPENSION NR SCH ×2 (09:35→22:30)
[2020-04-27] MEDS: MAGNESIUM HYDROX 2400MG/30ML ORAL SUSPENSION 30 ML CUP GT SCH ×2 (09:35→22:28)
[2020-04-27] MEDS: ENOXAPARIN NA (PORCINE) 40 MG/0.4 ML DISP.SYRIN SQ SCH (09:36)
[2020-04-27] MEDS: DOCUSATE NA 100 MG/10 ML UNIT-DOSE CUPS GT SCH ×2 (09:36→22:28)
[2020-04-27] MEDS: SODIUM CHLORIDE NASAL SPRAY 44 ML BOTTLE NS SCH ×2 (09:37→22:30)
[2020-04-27] MEDS: valACYclovir HCL 500 MG TABLET (FP) PO SCH ×2 (09:37→22:27)
[2020-04-27] MEDS: lamoTRIgine 100 MG TABLET PO SCH ×2 (09:37→22:27)
[2020-04-27] MEDS: ACETAMINOPHEN 650 MG/20.3 ML ORAL SOLUTION (CUPS) PO PRN (14:08)
[2020-04-27] MEDS: MULTIVIT-MINERALS ORAL LIQUID GT SCH (22:30)
[2020-04-28] MEDS: clonazePAM 0.5 MG TABLET GT SCH ×3 (05:53→21:04)
[2020-04-28] MEDS: BETHANECHOL CHLORIDE 25 MG TABLET GT SCH ×3 (05:53→21:04)
[2020-04-28] MEDS: FLUTICASONE PROP 0.05% 16 GM NASAL SPRAY NS SCH (06:13)
[2020-04-28 07:32] LABS: HEMATOCRIT 36.7 % (35.4-49); HEMOGLOBIN 12.5 GM/dL (11.7-16.9); MCH 33.6 pg (25.7-33.7); MCHC 34.1 g/dl (32.0-35.9); MEAN CELL VOLUME 98.7 fl (80-96); MEAN PLT VOLUME 9.8 fl (7.5-11.1); PLATELET COUNT 361 K/MM3 (134-434); RBC 3.72 M/mm3 (4.00-5.60); RDW 13.9 % (11.9-15.9); WHITE BLOOD COUNT 5.7 K/mm3 (4.0-10.0)
[2020-04-28 07:49] LABS: POTASSIUM 4.3 mmol/L (3.5-5.1)
[2020-04-28 07:54] LABS: CALCIUM 9.2 mg/dL (8.5-10.1)
[2020-04-28 07:55] LABS: ALBUMIN 3.3 g/dl (3.4-5.0); BLOOD UREA NITROGEN 8.7 mg/dL (7-18); MAGNESIUM 2.3 mg/dL (1.8-2.4)
[2020-04-28] MEDS ORDERED: BUDESONIDE 0.5 MG/2 ML INH SUSP VIAL NEB ONE (07:56)
[2020-04-28 07:57] LABS: BILIRUBIN,TOTAL 0.1 mg/dL (0.2-1)
[2020-04-28 07:58] LABS: CREATININE 0.6 mg/dL (0.55-1.3); PHOSPHOROUS 3.7 mg/dL (2.5-4.9)
[2020-04-28 08:00] LABS: TOT PROT 7.9 g/dl (6.4-8.2)
[2020-04-28] MEDS: BUDESONIDE 0.25 MG/2ML INH SUSP VIAL NEB SCH ×2 (08:00→20:30)
[2020-04-28] MEDS: SODIUM CHLORIDE FOR INHALATION 3 ML VIAL.NEB IH SCH ×2 (09:18→20:30)
[2020-04-28] MEDS ORDERED: PT OWN MED DRAWER 7, Y5N ONE ×3 (09:38→20:39)
[2020-04-28] MEDS: PHENobarbital 20 MG/5 ML UNIT-DOSE CUP GT SCH ×2 (10:17→21:04)
[2020-04-28] MEDS: ENOXAPARIN NA (PORCINE) 40 MG/0.4 ML DISP.SYRIN SQ SCH (10:17)
[2020-04-28] MEDS: AMINO ACIDS/PROTEIN HYDROLYS 30 ML LIQUID.PKT PEG SCH (10:17)
[2020-04-28] MEDS: ACETAMINOPHEN 650 MG/20.3 ML ORAL SOLUTION (CUPS) PO PRN (10:18)
[2020-04-28] MEDS: lamoTRIgine 100 MG TABLET PO SCH ×2 (10:19→21:04)
[2020-04-28] MEDS: DOCUSATE NA 100 MG/10 ML UNIT-DOSE CUPS GT SCH ×2 (10:19→21:06)
[2020-04-28] MEDS: SODIUM CHLORIDE NASAL SPRAY 44 ML BOTTLE NS SCH ×2 (10:19→21:06)
[2020-04-28] MEDS: FAMOTIDINE 40 MG/5 ML ORAL SUSPENSION NR SCH ×2 (10:19→21:05)
[2020-04-28] MEDS: MAGNESIUM HYDROX 2400MG/30ML ORAL SUSPENSION 30 ML CUP GT SCH ×2 (10:19→21:07)
[2020-04-28] MEDS: valACYclovir HCL 500 MG TABLET (FP) PO SCH ×2 (10:19→21:04)
[2020-04-28] MEDS ORDERED: ALBUTEROL SO4 2.5/IPRATROPIUM 0.5 INH SOL 3 ML VIAL.NEB. NEB PRN (16:49)
[2020-04-28] MEDS ORDERED: SCOPOLAMINE HYDROBROMIDE 1 PATCH PATCH.TD72 TD SCH (17:00)
[2020-04-28] MEDS: SIMETHICONE 40 MG/0.6 ML BOTTLE GT PRN (21:05)
[2020-04-28] MEDS: MULTIVIT-MINERALS ORAL LIQUID GT SCH (21:05)
[2020-04-29] MEDS ORDERED: PT OWN MED DRAWER 7, Y5N ONE ×4 (05:51→21:16)
[2020-04-29] MEDS: clonazePAM 0.5 MG TABLET GT SCH ×3 (05:54→22:36)
[2020-04-29] MEDS: BETHANECHOL CHLORIDE 25 MG TABLET GT SCH ×3 (05:54→22:37)
[2020-04-29] MEDS: FLUTICASONE PROP 0.05% 16 GM NASAL SPRAY NS SCH (06:31)
[2020-04-29] MEDS: ENOXAPARIN NA (PORCINE) 40 MG/0.4 ML DISP.SYRIN SQ SCH (09:25)
[2020-04-29] MEDS: PHENobarbital 20 MG/5 ML UNIT-DOSE CUP GT SCH ×2 (09:25→22:35)
[2020-04-29] MEDS: AMINO ACIDS/PROTEIN HYDROLYS 30 ML LIQUID.PKT PEG SCH (09:26)
[2020-04-29] MEDS: valACYclovir HCL 500 MG TABLET (FP) PO SCH ×2 (09:26→22:36)
[2020-04-29] MEDS: DOCUSATE NA 100 MG/10 ML UNIT-DOSE CUPS GT SCH ×2 (09:26→22:35)
[2020-04-29] MEDS: lamoTRIgine 100 MG TABLET PO SCH ×2 (09:26→22:36)
[2020-04-29] MEDS: MAGNESIUM HYDROX 2400MG/30ML ORAL SUSPENSION 30 ML CUP GT SCH ×2 (09:26→22:37)
[2020-04-29] MEDS: BUDESONIDE 0.25 MG/2ML INH SUSP VIAL NEB SCH ×2 (10:23→20:38)
[2020-04-29] MEDS: SODIUM CHLORIDE NASAL SPRAY 44 ML BOTTLE NS SCH ×2 (10:45→22:37)
[2020-04-29] MEDS: FAMOTIDINE 40 MG/5 ML ORAL SUSPENSION NR SCH ×2 (10:45→22:36)
[2020-04-29] MEDS: SODIUM CHLORIDE FOR INHALATION 3 ML VIAL.NEB IH SCH (20:38)
[2020-04-29] MEDS: SIMETHICONE 40 MG/0.6 ML BOTTLE GT PRN (22:36)
[2020-04-29] MEDS: MULTIVIT-MINERALS ORAL LIQUID GT SCH (22:36)
[2020-04-30] MEDS: clonazePAM 0.5 MG TABLET GT SCH ×2 (05:56→13:31)
[2020-04-30] MEDS: BETHANECHOL CHLORIDE 25 MG TABLET GT SCH ×2 (05:56→13:31)
[2020-04-30] MEDS: FLUTICASONE PROP 0.05% 16 GM NASAL SPRAY NS SCH (07:29)
[2020-04-30] MEDS: BUDESONIDE 0.25 MG/2ML INH SUSP VIAL NEB SCH (07:30)
[2020-04-30] MEDS: SODIUM CHLORIDE FOR INHALATION 3 ML VIAL.NEB IH SCH (07:30)
[2020-04-30] MEDS ORDERED: PT OWN MED DRAWER 7, Y5N ONE ×2 (09:53→13:27)
[2020-04-30] MEDS: AMINO ACIDS/PROTEIN HYDROLYS 30 ML LIQUID.PKT PEG SCH (09:58)
[2020-04-30] MEDS: PHENobarbital 20 MG/5 ML UNIT-DOSE CUP GT SCH (09:59)
[2020-04-30] MEDS: MAGNESIUM HYDROX 2400MG/30ML ORAL SUSPENSION 30 ML CUP GT SCH (09:59)
[2020-04-30] MEDS: ENOXAPARIN NA (PORCINE) 40 MG/0.4 ML DISP.SYRIN SQ SCH (10:00)
[2020-04-30] MEDS: SIMETHICONE 40 MG/0.6 ML BOTTLE GT PRN (10:01)
[2020-04-30] MEDS: DOCUSATE NA 100 MG/10 ML UNIT-DOSE CUPS GT SCH (10:01)
[2020-04-30] MEDS: SODIUM CHLORIDE NASAL SPRAY 44 ML BOTTLE NS SCH (10:04)
[2020-04-30] MEDS: valACYclovir HCL 500 MG TABLET (FP) PO SCH (10:04)
[2020-04-30] MEDS: FAMOTIDINE 40 MG/5 ML ORAL SUSPENSION NR SCH (10:04)
[2020-04-30] MEDS: lamoTRIgine 100 MG TABLET PO SCH (10:07)
[2020-04-30 10:53] LABS: HEMATOCRIT 40.1 % (35.4-49); HEMOGLOBIN 13.7 GM/dL (11.7-16.9); MCH 33.7 pg (25.7-33.7); MCHC 34.3 g/dl (32.0-35.9); MEAN CELL VOLUME 98.3 fl (80-96); MEAN PLT VOLUME 9.8 fl (7.5-11.1); PLATELET COUNT 396 K/MM3 (134-434); RBC 4.08 M/mm3 (4.00-5.60); RDW 13.8 % (11.9-15.9); WHITE BLOOD COUNT 6.7 K/mm3 (4.0-10.0)
[2020-04-30 11:19] LABS: POTASSIUM 4.1 mmol/L (3.5-5.1)
[2020-04-30 11:21] LABS: CALCIUM 9.5 mg/dL (8.5-10.1)
[2020-04-30 11:22] LABS: ALBUMIN 3.5 g/dl (3.4-5.0); BLOOD UREA NITROGEN 11.3 mg/dL (7-18)
[2020-04-30 11:25] LABS: CREATININE 0.6 mg/dL (0.55-1.3)
[2020-04-30 11:26] LABS: BILIRUBIN,TOTAL 0.2 mg/dL (0.2-1)
[2020-04-30 11:27] LABS: TOT PROT 8.5 g/dl (6.4-8.2)
[2020-04-30 13:39] VITALS: BP 101/77; PULSE 79; TEMP 99.1
== END 2020-04-30 15:23 | DRG 720 ==
LOC: JER 09:11 → JERBED 12:57 → J4S 15:50
PROVIDERS: ADMIT Internal Medicine; ATTEND Internal Medicine
DX: A41.89 Other specified sepsis (principal); J69.0 Pneumonitis due to inhalation of food and vomit; J96.21 Acute and chronic respiratory failure with hypoxia; G40.909 Epilepsy, unspecified, not intractable, without status epilepticus; K21.9 Gastro-esophageal reflux disease without esophagitis; R53.2 Functional quadriplegia; G80.9 Cerebral palsy, unspecified; R74.01 Elevation of levels of liver transaminase levels; R00.0 Tachycardia, unspecified; J45.909 Unspecified asthma, uncomplicated; K59.09 Other constipation; R13.10 Dysphagia, unspecified; F73 Profound intellectual disabilities; Z86.61 Personal history of infections of the central nervous system; Z93.1 Gastrostomy status; E86.1 Hypovolemia
CPT/HCPCS: 36415; 71045-TC-FY; 76705-TC; 80053; 81003; 82803; 83605; 83735; 84100; 84484; 85025; 85027; 85610; 85730; 87040; 87077; 87086; 87324; 87449; 87804; 87899; 93005; 93010; 94640; 99291; C9803; J0131; U0003

== ENCOUNTER 2020-06-06 13:33 | Inpatient (IN) | payer OTHER ==
[2020-06-06 13:57] VITALS: BMI 17.7
[2020-06-06] MEDS ORDERED: DEXAMETHASONE SOD PHOSPHATE 4 MG/1 ML VIAL IVPUSH ONE (15:50)
[2020-06-06 15:51] LABS: EPI CELLS 28 /uL (0-25.1); HYALINE CASTS 1 /uL (0-3.1); PH,URINE >= 9.0 (5.0-8.0); URINE APPEARANCE CLEAR; URINE BACTERIA 49 /uL (0-1359); URINE BILIRUBIN NEGATIVE (NEGATIVE); URINE COLOR YELLOW; URINE GLUCOSE (UA) NEGATIVE (NEGATIVE); URINE KETONE NEGATIVE (NEGATIVE); URINE LEUK ESTERASE NEGATIVE (NEGATIVE); URINE NITRITE NEGATIVE (NEGATIVE); URINE PROTEIN NEGATIVE (NEGATIVE); URINE RBC 91 /uL (0-23.9); URINE UROBILINOGEN 0.2 mg/dL (0.2-1.0); URINE WBC 10 /uL (0-25.8)
[2020-06-06 15:52] LABS: BASO % 0.3 % (0-2.0); EOS % 1.8 % (0-4.5); HEMATOCRIT 44.9 % (35.4-49); HEMOGLOBIN 15.3 GM/dL (11.7-16.9); LYMPH % 30.6 % (8-40); MCH 33.4 pg (25.7-33.7); MEAN CELL VOLUME 98.1 fl (80-96); MEAN PLT VOLUME 10.6 fl (7.5-11.1); MONO % 6.5 % (3.8-10.2); NEUT % 60.8 % (42.8-82.8); PLATELET COUNT 311 K/MM3 (134-434); RBC 4.57 M/mm3 (4.00-5.60); RDW 14.2 % (11.9-15.9); WHITE BLOOD COUNT 8.3 K/mm3 (4.0-10.0)
[2020-06-06 15:53] LABS: VENOUS BASE EXCESS 3.4 mmol/L (-2-2); VENOUS O2 SATURATION 91.4 % (70-80); VENOUS PH 7.404 (7.310-7.410)
[2020-06-06] MEDS ORDERED: DEXAMETHASONE SOD PHOSPHATE 10 MG/1 ML VIAL ONE (15:53)
[2020-06-06 15:59] LABS: INR 0.97 (0.83-1.09); PROTHROMBIN TIME (PATIENT) 11.8 SEC (9.7-13.0)
[2020-06-06 16:01] LABS: ACTIVATED PTT 37.1 SECONDS (25.2-36.5)
[2020-06-06 16:17] LABS: CHLORIDE 108 mmol/L (98-107); POTASSIUM 4.6 mmol/L (3.5-5.1); SODIUM 142 mmol/L (136-145)
[2020-06-06 16:21] LABS: ALBUMIN 3.8 g/dl (3.4-5.0); ANION GAP 4 MMOL/L (8-16); CALCIUM 9.3 mg/dL (8.5-10.1); CO2 30 mmol/L (21-32); GLUCOSE,RANDOM 80 mg/dL (74-106)
[2020-06-06 16:24] LABS: BILIRUBIN,DIRECT 0.1 mg/dL (0.0-0.2); CREATININE 0.5 mg/dL (0.55-1.3); SGOT/AST 20 U/L (15-37); SGPT/ALT 51 U/L (13-61)
[2020-06-06 16:25] LABS: LDH 174 U/L (87-246)
[2020-06-06 16:26] LABS: BILIRUBIN,TOTAL 0.4 mg/dL (0.2-1); TOT PROT 8.6 g/dl (6.4-8.2)
[2020-06-06 16:27] LABS: ALK PHOS 285 U/L (45-117)
[2020-06-06] MEDS ORDERED: CEFTRIAXONE 1 GM in DEXTROSE 5%-WATER - 100 ML IVPB ONE (17:04)
[2020-06-06] MEDS ORDERED: AZITHROMYCIN IVPB 500 MG in DEXTROSE 5%-WATER - 250 ML IVPB ONE (17:04)
[2020-06-06] MEDS ORDERED: ACETAMINOPHEN 325 MG TABLET (FP) PO PRN (17:09)
[2020-06-06] MEDS ORDERED: AZITHROMYCIN IVPB 500 MG/250 ML BAG IVPB ONE (17:11)
[2020-06-06] MEDS ORDERED: CEFTRIAXONE 1 GM/50 ML BAG ONE (17:11)
[2020-06-06] MEDS ORDERED: BISACODYL 10 MG SUPP.RECT RC PRN (17:12)
[2020-06-06] MEDS ORDERED: diazePAM RECTAL GEL 10 MG KIT (PRE-CALIBRATED) RC PRN (17:12)
[2020-06-06] MEDS ORDERED: diphenhydrAMINE HCL 12.5 MG/5 ML UNIT-DOSE CUPS NGT PRN (17:12)
[2020-06-06] MEDS ORDERED: SODIUM CHLORIDE 1,000 ML IV SCH (17:45)
[2020-06-06] MEDS ORDERED: SIMETHICONE 40 MG/0.6 ML BOTTLE NGT PRN (22:00)
[2020-06-06] MEDS ORDERED: PHENOBARBITAL 20 MG/5 ML LIQUID NGT SCH (22:00)
[2020-06-06] MEDS ORDERED: clonazePAM 0.5 MG ODT TABLETS GT SCH (22:00)
[2020-06-06] MEDS ORDERED: clonazePAM 0.5 MG TABLET ONE (22:05)
[2020-06-06] MEDS ORDERED: FAMOTIDINE 20 MG TABLET ONE (22:08)
[2020-06-06] MEDS ORDERED: lamoTRIgine 100 MG TABLET ONE (22:09)
[2020-06-06] MEDS ORDERED: ACYCLOVIR 200 MG CAPSULE ONE (22:09)
[2020-06-06] MEDS: MULTIVIT-MINERALS ORAL LIQUID GT SCH (22:26)
[2020-06-06] MEDS: DOCUSATE NA 100 MG/10 ML UNIT-DOSE CUPS GT SCH (22:26)
[2020-06-06] MEDS: lamoTRIgine 100 MG TABLET NGT SCH (22:27)
[2020-06-06] MEDS: BETHANECHOL CHLORIDE 25 MG TABLET PO SCH (22:27)
[2020-06-06] MEDS: FAMOTIDINE 40 MG/5 ML ORAL SUSPENSION NGT SCH (22:27)
[2020-06-06] MEDS: ACYCLOVIR 200 MG/5 ML LIQUID NGT SCH (22:27)
[2020-06-06] MEDS: MAGNESIUM HYDROX 2400MG/30ML ORAL SUSPENSION 30 ML CUP GT SCH (22:27)
[2020-06-06] MEDS ORDERED: cloBAZam 10 MG TABLET ONE (23:05)
[2020-06-06] MEDS: cloBAZam 10 MG TABLET GT SCH (23:07)
[2020-06-07] MEDS: BUDESONIDE 0.25 MG/2ML INH SUSP VIAL NEB SCH ×3 (01:29→20:31)
[2020-06-07] MEDS: LACTOBACILLUS ACIDOPHILUS 1 TABLET NGT SCH ×2 (01:29→21:51)
[2020-06-07] MEDS: clonazePAM 0.5 MG TABLET GT SCH ×3 (05:35→21:51)
[2020-06-07] MEDS: BETHANECHOL CHLORIDE 25 MG TABLET PO SCH ×2 (05:36→13:27)
[2020-06-07 07:18] LABS: BASO % 0.1 % (0-2.0); EOS % 0.6 % (0-4.5); HEMOGLOBIN 14.4 GM/dL (11.7-16.9); LYMPH % 31.4 % (8-40); MCH 33.9 pg (25.7-33.7); MCHC 34.4 g/dl (32.0-35.9); MEAN CELL VOLUME 98.5 fl (80-96); MEAN PLT VOLUME 10.7 fl (7.5-11.1); MONO % 5.8 % (3.8-10.2); NEUT % 62.1 % (42.8-82.8); PLATELET COUNT 301 K/MM3 (134-434); RBC 4.26 M/mm3 (4.00-5.60); RDW 14.4 % (11.9-15.9); WHITE BLOOD COUNT 11.2 K/mm3 (4.0-10.0)
[2020-06-07 07:38] LABS: POTASSIUM 4.1 mmol/L (3.5-5.1)
[2020-06-07 07:53] LABS: CALCIUM 9.2 mg/dL (8.5-10.1)
[2020-06-07 07:54] LABS: ALBUMIN 3.6 g/dl (3.4-5.0); BLOOD UREA NITROGEN 10.1 mg/dL (7-18); MAGNESIUM 1.9 mg/dL (1.8-2.4)
[2020-06-07 07:56] LABS: PHOSPHOROUS 4.4 mg/dL (2.5-4.9)
[2020-06-07 07:57] LABS: BILIRUBIN,TOTAL 0.3 mg/dL (0.2-1); CREATININE 0.6 mg/dL (0.55-1.3)
[2020-06-07] MEDS ORDERED: cefTRIAXone SODIUM 1 GM VIAL ONE (09:18)
[2020-06-07] MEDS ORDERED: PT OWN MED DRAWER 7, Y5N ONE ×4 (09:18→21:48)
[2020-06-07] MEDS ORDERED: DEXTROSE 5%-WATER - 50 ML IVPB ONE (09:18)
[2020-06-07] MEDS: DOCUSATE NA 100 MG/10 ML UNIT-DOSE CUPS GT SCH ×2 (09:43→21:49)
[2020-06-07] MEDS: MAGNESIUM HYDROX 2400MG/30ML ORAL SUSPENSION 30 ML CUP GT SCH ×2 (09:43→21:50)
[2020-06-07] MEDS: PHENobarbital 20 MG/5 ML UNIT-DOSE CUP NGT SCH ×2 (09:43→21:49)
[2020-06-07] MEDS: lamoTRIgine 100 MG TABLET NGT SCH (09:44)
[2020-06-07] MEDS: ENOXAPARIN NA (PORCINE) 40 MG/0.4 ML DISP.SYRIN SQ SCH (09:45)
[2020-06-07] MEDS: ACYCLOVIR 200 MG/5 ML LIQUID NGT SCH (09:46)
[2020-06-07] MEDS: CEFTRIAXONE 1 GM in DEXTROSE 5%-WATER - 50 ML IVPB SCH (09:46)
[2020-06-07] MEDS: AZITHROMYCIN IVPB 250 MG in DEXTROSE 5%-WATER - 250 ML IVPB SCH (10:38)
[2020-06-07] MEDS: FAMOTIDINE 40 MG/5 ML ORAL SUSPENSION NGT SCH (11:27)
[2020-06-07] MEDS ORDERED: diphenhydrAMINE HCL 12.5 MG/5 ML UNIT-DOSE CUPS GT PRN (18:42)
[2020-06-07] MEDS: ALBUTEROL SO4 2.5/IPRATROPIUM 0.5 INH SOL 3 ML VIAL.NEB. NEB PRN (20:31)
[2020-06-07] MEDS: BETHANECHOL CHLORIDE 25 MG TABLET GT SCH (21:51)
[2020-06-07] MEDS: cloBAZam 10 MG TABLET GT SCH (21:51)
[2020-06-07] MEDS: lamoTRIgine 100 MG TABLET GT SCH (21:51)
[2020-06-07] MEDS: ACYCLOVIR 200 MG/5 ML LIQUID GT SCH (21:53)
[2020-06-07] MEDS: MULTIVIT-MINERALS ORAL LIQUID GT SCH (23:24)
[2020-06-07] MEDS: FAMOTIDINE 40 MG/5 ML ORAL SUSPENSION PEG SCH (23:24)
[2020-06-08] MEDS ORDERED: PT OWN MED DRAWER 7, Y5N ONE ×5 (05:08→21:27)
[2020-06-08] MEDS: clonazePAM 0.5 MG TABLET GT SCH ×3 (05:09→21:31)
[2020-06-08] MEDS: BETHANECHOL CHLORIDE 25 MG TABLET GT SCH ×3 (05:09→21:33)
[2020-06-08] MEDS: BUDESONIDE 0.25 MG/2ML INH SUSP VIAL NEB SCH ×2 (07:50→19:55)
[2020-06-08] MEDS ORDERED: cefTRIAXone SODIUM 1 GM VIAL ONE (10:05)
[2020-06-08] MEDS ORDERED: DEXTROSE 5%-WATER - 50 ML IVPB ONE (10:06)
[2020-06-08] MEDS: lamoTRIgine 100 MG TABLET GT SCH ×2 (10:15→21:30)
[2020-06-08] MEDS: DOCUSATE NA 100 MG/10 ML UNIT-DOSE CUPS GT SCH ×2 (10:15→21:31)
[2020-06-08] MEDS: PHENobarbital 20 MG/5 ML UNIT-DOSE CUP NGT SCH ×2 (10:15→21:29)
[2020-06-08] MEDS: MAGNESIUM HYDROX 2400MG/30ML ORAL SUSPENSION 30 ML CUP GT SCH ×2 (10:16→21:32)
[2020-06-08] MEDS: ENOXAPARIN NA (PORCINE) 40 MG/0.4 ML DISP.SYRIN SQ SCH (10:16)
[2020-06-08] MEDS: ACYCLOVIR 200 MG/5 ML LIQUID GT SCH ×2 (10:16→21:33)
[2020-06-08] MEDS: CEFTRIAXONE 1 GM in DEXTROSE 5%-WATER - 50 ML IVPB SCH (10:17)
[2020-06-08] MEDS: FAMOTIDINE 40 MG/5 ML ORAL SUSPENSION PEG SCH ×2 (10:17→21:32)
[2020-06-08] MEDS: AZITHROMYCIN IVPB 250 MG in DEXTROSE 5%-WATER - 250 ML IVPB SCH (10:27)
[2020-06-08] MEDS: MULTIVIT-MINERALS ORAL LIQUID GT SCH (21:31)
[2020-06-08] MEDS: LACTOBACILLUS ACIDOPHILUS 1 TABLET NGT SCH (21:31)
[2020-06-08] MEDS: cloBAZam 10 MG TABLET GT SCH (21:32)
[2020-06-09] MEDS: BETHANECHOL CHLORIDE 25 MG TABLET GT SCH ×3 (05:12→22:10)
[2020-06-09] MEDS: clonazePAM 0.5 MG TABLET GT SCH ×3 (05:12→22:07)
[2020-06-09] MEDS: BUDESONIDE 0.25 MG/2ML INH SUSP VIAL NEB SCH ×2 (07:30→20:39)
[2020-06-09 07:37] LABS: BASO % 0.4 % (0-2.0); EOS % 2.7 % (0-4.5); HEMATOCRIT 41.5 % (35.4-49); HEMOGLOBIN 14.2 GM/dL (11.7-16.9); LYMPH % 30.1 % (8-40); MCH 33.6 pg (25.7-33.7); MCHC 34.3 g/dl (32.0-35.9); MEAN CELL VOLUME 98.1 fl (80-96); MEAN PLT VOLUME 10.6 fl (7.5-11.1); MONO % 7.5 % (3.8-10.2); NEUT % 59.3 % (42.8-82.8); PLATELET COUNT 271 K/MM3 (134-434); RBC 4.23 M/mm3 (4.00-5.60); RDW 14.4 % (11.9-15.9); WHITE BLOOD COUNT 8.5 K/mm3 (4.0-10.0)
[2020-06-09] MEDS ORDERED: BUDESONIDE 0.5 MG/2 ML INH SUSP VIAL NEB ONE (07:40)
[2020-06-09 07:57] LABS: POTASSIUM 4.1 mmol/L (3.5-5.1)
[2020-06-09 08:00] LABS: CALCIUM 9.1 mg/dL (8.5-10.1)
[2020-06-09 08:01] LABS: ALBUMIN 3.4 g/dl (3.4-5.0); BLOOD UREA NITROGEN 6.8 mg/dL (7-18); MAGNESIUM 1.9 mg/dL (1.8-2.4)
[2020-06-09 08:04] LABS: CREATININE 0.6 mg/dL (0.55-1.3)
[2020-06-09 08:06] LABS: BILIRUBIN,TOTAL 0.5 mg/dL (0.2-1); TOT PROT 7.8 g/dl (6.4-8.2)
[2020-06-09] MEDS ORDERED: DEXTROSE 5%-WATER - 50 ML IVPB ONE (08:58)
[2020-06-09] MEDS ORDERED: cefTRIAXone SODIUM 1 GM VIAL ONE (08:58)
[2020-06-09] MEDS: AMINO ACIDS/PROTEIN HYDROLYS 30 ML LIQUID.PKT PO SCH (09:25)
[2020-06-09] MEDS: CEFTRIAXONE 1 GM in DEXTROSE 5%-WATER - 50 ML IVPB SCH (09:26)
[2020-06-09] MEDS ORDERED: PT OWN MED DRAWER 7, Y5N ONE ×3 (10:33→22:04)
[2020-06-09] MEDS: ENOXAPARIN NA (PORCINE) 40 MG/0.4 ML DISP.SYRIN SQ SCH (10:40)
[2020-06-09] MEDS: PHENobarbital 20 MG/5 ML UNIT-DOSE CUP NGT SCH ×2 (10:40→22:09)
[2020-06-09] MEDS: MAGNESIUM HYDROX 2400MG/30ML ORAL SUSPENSION 30 ML CUP GT SCH ×2 (10:40→22:08)
[2020-06-09] MEDS: DOCUSATE NA 100 MG/10 ML UNIT-DOSE CUPS GT SCH ×2 (10:40→22:06)
[2020-06-09] MEDS: ACYCLOVIR 200 MG/5 ML LIQUID GT SCH ×2 (10:41→22:10)
[2020-06-09] MEDS: lamoTRIgine 100 MG TABLET GT SCH ×2 (10:41→22:07)
[2020-06-09] MEDS: AZITHROMYCIN IVPB 250 MG in DEXTROSE 5%-WATER - 250 ML IVPB SCH (10:41)
[2020-06-09] MEDS: FAMOTIDINE 40 MG/5 ML ORAL SUSPENSION PEG SCH ×2 (10:41→22:09)
[2020-06-09] MEDS: LACTOBACILLUS ACIDOPHILUS 1 TABLET NGT SCH (22:06)
[2020-06-09] MEDS: MULTIVIT-MINERALS ORAL LIQUID GT SCH (22:07)
[2020-06-09] MEDS: cloBAZam 10 MG TABLET GT SCH (22:08)
[2020-06-10] MEDS ORDERED: PT OWN MED DRAWER 7, Y5N ONE ×3 (05:05→21:34)
[2020-06-10] MEDS: clonazePAM 0.5 MG TABLET GT SCH ×3 (05:06→21:44)
[2020-06-10] MEDS: BETHANECHOL CHLORIDE 25 MG TABLET GT SCH ×3 (05:06→21:45)
[2020-06-10 08:40] LABS: BASO % 0.3 % (0-2.0); EOS % 3.5 % (0-4.5); HEMATOCRIT 42.9 % (35.4-49); HEMOGLOBIN 14.6 GM/dL (11.7-16.9); LYMPH % 39.4 % (8-40); MCH 33.6 pg (25.7-33.7); MCHC 34.1 g/dl (32.0-35.9); MEAN CELL VOLUME 98.5 fl (80-96); MEAN PLT VOLUME 11.1 fl (7.5-11.1); MONO % 9.5 % (3.8-10.2); NEUT % 47.3 % (42.8-82.8); PLATELET COUNT 249 K/MM3 (134-434); RBC 4.36 M/mm3 (4.00-5.60); RDW 13.8 % (11.9-15.9); WHITE BLOOD COUNT 6.4 K/mm3 (4.0-10.0)
[2020-06-10] MEDS: AMINO ACIDS/PROTEIN HYDROLYS 30 ML LIQUID.PKT PO SCH (08:55)
[2020-06-10 09:00] LABS: POTASSIUM 4.6 mmol/L (3.5-5.1)
[2020-06-10] MEDS: BUDESONIDE 0.25 MG/2ML INH SUSP VIAL NEB SCH ×2 (09:00→20:13)
[2020-06-10 09:01] LABS: CALCIUM 9.3 mg/dL (8.5-10.1)
[2020-06-10 09:02] LABS: ALBUMIN 3.4 g/dl (3.4-5.0); BLOOD UREA NITROGEN 10.1 mg/dL (7-18); MAGNESIUM 2.1 mg/dL (1.8-2.4)
[2020-06-10 09:05] LABS: CREATININE 0.5 mg/dL (0.55-1.3)
[2020-06-10 09:07] LABS: BILIRUBIN,TOTAL 0.4 mg/dL (0.2-1); TOT PROT 8.2 g/dl (6.4-8.2)
[2020-06-10] MEDS ORDERED: cefTRIAXone SODIUM 1 GM VIAL ONE (09:59)
[2020-06-10] MEDS ORDERED: DEXTROSE 5%-WATER - 50 ML IVPB ONE (09:59)
[2020-06-10] MEDS: CEFTRIAXONE 1 GM in DEXTROSE 5%-WATER - 50 ML IVPB SCH (10:01)
[2020-06-10] MEDS: PHENobarbital 20 MG/5 ML UNIT-DOSE CUP NGT SCH ×2 (10:01→21:44)
[2020-06-10] MEDS: DOCUSATE NA 100 MG/10 ML UNIT-DOSE CUPS GT SCH ×2 (10:02→21:46)
[2020-06-10] MEDS: MAGNESIUM HYDROX 2400MG/30ML ORAL SUSPENSION 30 ML CUP GT SCH ×2 (10:02→21:46)
[2020-06-10] MEDS: lamoTRIgine 100 MG TABLET GT SCH ×2 (10:02→21:43)
[2020-06-10] MEDS: ENOXAPARIN NA (PORCINE) 40 MG/0.4 ML DISP.SYRIN SQ SCH (10:02)
[2020-06-10] MEDS: ACYCLOVIR 200 MG/5 ML LIQUID GT SCH ×2 (10:03→21:44)
[2020-06-10] MEDS: FAMOTIDINE 40 MG/5 ML ORAL SUSPENSION PEG SCH ×2 (10:03→21:44)
[2020-06-10] MEDS: AZITHROMYCIN IVPB 250 MG in DEXTROSE 5%-WATER - 250 ML IVPB SCH (10:49)
[2020-06-10] MEDS: ALBUTEROL SO4 2.5/IPRATROPIUM 0.5 INH SOL 3 ML VIAL.NEB. NEB PRN (20:13)
[2020-06-10] MEDS: cloBAZam 10 MG TABLET GT SCH (21:44)
[2020-06-10] MEDS: MULTIVIT-MINERALS ORAL LIQUID GT SCH (21:46)
[2020-06-10] MEDS: BANATROL PLUS POWDER PACKET PO SCH (21:46)
[2020-06-10] MEDS: LACTOBACILLUS ACIDOPHILUS 1 TABLET NGT SCH (21:48)
[2020-06-11] MEDS: BANATROL PLUS POWDER PACKET PO SCH ×3 (05:05→21:55)
[2020-06-11] MEDS: BETHANECHOL CHLORIDE 25 MG TABLET GT SCH ×3 (05:05→17:12)
[2020-06-11] MEDS: clonazePAM 0.5 MG TABLET GT SCH ×3 (05:05→21:54)
[2020-06-11 07:04] LABS: BASO % 0.4 % (0-2.0); EOS % 4.5 % (0-4.5); HEMATOCRIT 43.6 % (35.4-49); HEMOGLOBIN 14.8 GM/dL (11.7-16.9); LYMPH % 46.2 % (8-40); MCH 33.4 pg (25.7-33.7); MCHC 34.1 g/dl (32.0-35.9); MEAN CELL VOLUME 98.1 fl (80-96); MEAN PLT VOLUME 10.3 fl (7.5-11.1); MONO % 9.2 % (3.8-10.2); NEUT % 39.7 % (42.8-82.8); PLATELET COUNT 277 K/MM3 (134-434); RBC 4.45 M/mm3 (4.00-5.60); RDW 14.1 % (11.9-15.9); WHITE BLOOD COUNT 5.1 K/mm3 (4.0-10.0)
[2020-06-11 07:21] LABS: POTASSIUM 4.2 mmol/L (3.5-5.1)
[2020-06-11 07:24] LABS: CALCIUM 9.4 mg/dL (8.5-10.1)
[2020-06-11 07:25] LABS: ALBUMIN 3.5 g/dl (3.4-5.0); BLOOD UREA NITROGEN 10.4 mg/dL (7-18); MAGNESIUM 1.9 mg/dL (1.8-2.4)
[2020-06-11 07:28] LABS: CREATININE 0.6 mg/dL (0.55-1.3)
[2020-06-11 07:29] LABS: BILIRUBIN,TOTAL 0.5 mg/dL (0.2-1)
[2020-06-11 07:30] LABS: TOT PROT 8.1 g/dl (6.4-8.2)
[2020-06-11] MEDS ORDERED: BUDESONIDE 0.5 MG/2 ML INH SUSP VIAL NEB ONE (07:37)
[2020-06-11] MEDS ORDERED: PT OWN MED DRAWER 7, Y5N ONE ×5 (07:44→21:46)
[2020-06-11] MEDS: BUDESONIDE 0.25 MG/2ML INH SUSP VIAL NEB SCH ×2 (08:00→20:16)
[2020-06-11] MEDS ORDERED: cefTRIAXone SODIUM 1 GM VIAL ONE (09:43)
[2020-06-11] MEDS ORDERED: DEXTROSE 5%-WATER - 50 ML IVPB ONE (09:43)
[2020-06-11] MEDS: lamoTRIgine 100 MG TABLET GT SCH ×2 (09:49→21:54)
[2020-06-11] MEDS: AMINO ACIDS/PROTEIN HYDROLYS 30 ML LIQUID.PKT PO SCH (09:49)
[2020-06-11] MEDS: DOCUSATE NA 100 MG/10 ML UNIT-DOSE CUPS GT SCH ×2 (09:49→21:55)
[2020-06-11] MEDS: PHENobarbital 20 MG/5 ML UNIT-DOSE CUP NGT SCH ×2 (09:49→21:54)
[2020-06-11] MEDS: MAGNESIUM HYDROX 2400MG/30ML ORAL SUSPENSION 30 ML CUP GT SCH ×2 (09:50→21:55)
[2020-06-11] MEDS: ACYCLOVIR 200 MG/5 ML LIQUID GT SCH ×2 (09:50→21:56)
[2020-06-11] MEDS: FAMOTIDINE 40 MG/5 ML ORAL SUSPENSION PEG SCH (09:53)
[2020-06-11] MEDS: CEFTRIAXONE 1 GM in DEXTROSE 5%-WATER - 50 ML IVPB SCH (09:55)
[2020-06-11] MEDS: AZITHROMYCIN IVPB 250 MG in DEXTROSE 5%-WATER - 250 ML IVPB SCH (11:47)
[2020-06-11] MEDS: ENOXAPARIN NA (PORCINE) 40 MG/0.4 ML DISP.SYRIN SQ SCH (11:47)
[2020-06-11] MEDS ORDERED: ACETAMINOPHEN 650 MG SUPP.RECT PR ONE (20:12)
[2020-06-11] MEDS: cloBAZam 10 MG TABLET GT SCH (21:54)
[2020-06-11] MEDS: LACTOBACILLUS ACIDOPHILUS 1 TABLET NGT SCH (21:54)
[2020-06-11] MEDS: SIMETHICONE 40 MG/0.6 ML BOTTLE GT PRN (21:55)
[2020-06-11] MEDS: MULTIVIT-MINERALS ORAL LIQUID GT SCH (21:58)
[2020-06-12] MEDS: BETHANECHOL CHLORIDE 25 MG TABLET GT SCH ×5 (01:03→23:25)
[2020-06-12] MEDS ORDERED: PT OWN MED DRAWER 7, Y5N ONE ×8 (01:03→22:04)
[2020-06-12] MEDS: FAMOTIDINE 40 MG/5 ML ORAL SUSPENSION PEG SCH ×3 (03:25→22:11)
[2020-06-12] MEDS: BANATROL PLUS POWDER PACKET PO SCH ×3 (06:09→22:08)
[2020-06-12] MEDS: clonazePAM 0.5 MG TABLET GT SCH ×3 (06:09→22:10)
[2020-06-12] MEDS: BUDESONIDE 0.25 MG/2ML INH SUSP VIAL NEB SCH ×2 (08:30→20:45)
[2020-06-12] MEDS ORDERED: BUDESONIDE 0.5 MG/2 ML INH SUSP VIAL NEB ONE ×2 (08:35→20:47)
[2020-06-12] MEDS ORDERED: DEXTROSE 5%-WATER - 50 ML IVPB ONE (09:01)
[2020-06-12] MEDS ORDERED: cefTRIAXone SODIUM 1 GM VIAL ONE (09:01)
[2020-06-12] MEDS: CEFTRIAXONE 1 GM in DEXTROSE 5%-WATER - 50 ML IVPB SCH (09:11)
[2020-06-12] MEDS: AMINO ACIDS/PROTEIN HYDROLYS 30 ML LIQUID.PKT PO SCH (09:12)
[2020-06-12] MEDS: ENOXAPARIN NA (PORCINE) 40 MG/0.4 ML DISP.SYRIN SQ SCH (09:12)
[2020-06-12] MEDS: SIMETHICONE 40 MG/0.6 ML BOTTLE GT PRN (09:12)
[2020-06-12] MEDS: MAGNESIUM HYDROX 2400MG/30ML ORAL SUSPENSION 30 ML CUP GT SCH ×2 (09:13→22:06)
[2020-06-12] MEDS: lamoTRIgine 100 MG TABLET GT SCH ×2 (09:13→22:10)
[2020-06-12] MEDS: DOCUSATE NA 100 MG/10 ML UNIT-DOSE CUPS GT SCH ×2 (09:13→22:09)
[2020-06-12] MEDS: PHENobarbital 20 MG/5 ML UNIT-DOSE CUP NGT SCH ×2 (09:28→22:12)
[2020-06-12] MEDS: AZITHROMYCIN IVPB 500 MG/250 ML BAG IVPB SCH (10:03)
[2020-06-12 10:16] LABS: BASO % 0.2 % (0-2.0); EOS % 3.3 % (0-4.5); HEMOGLOBIN 14.3 GM/dL (11.7-16.9); LYMPH % 30.8 % (8-40); MCH 33.4 pg (25.7-33.7); MCHC 34.1 g/dl (32.0-35.9); MEAN PLT VOLUME 10.7 fl (7.5-11.1); MONO % 6.7 % (3.8-10.2); PLATELET COUNT 264 K/MM3 (134-434); RBC 4.29 M/mm3 (4.00-5.60); RDW 13.9 % (11.9-15.9); WHITE BLOOD COUNT 7.8 K/mm3 (4.0-10.0)
[2020-06-12 10:41] LABS: POTASSIUM 4.3 mmol/L (3.5-5.1)
[2020-06-12] MEDS: ACYCLOVIR 200 MG/5 ML LIQUID GT SCH ×2 (10:43→22:13)
[2020-06-12 11:13] LABS: CALCIUM 9.2 mg/dL (8.5-10.1)
[2020-06-12 11:14] LABS: ALBUMIN 3.4 g/dl (3.4-5.0); BLOOD UREA NITROGEN 11.4 mg/dL (7-18)
[2020-06-12 11:20] LABS: CREATININE 0.5 mg/dL (0.55-1.3)
[2020-06-12] MEDS: LACTOBACILLUS ACIDOPHILUS 1 TABLET NGT SCH (22:07)
[2020-06-12] MEDS: MULTIVIT-MINERALS ORAL LIQUID GT SCH (22:09)
[2020-06-12] MEDS: cloBAZam 10 MG TABLET GT SCH (22:11)
[2020-06-13] MEDS ORDERED: PT OWN MED DRAWER 7, Y5N ONE ×2 (05:23→14:23)
[2020-06-13] MEDS: clonazePAM 0.5 MG TABLET GT SCH ×3 (05:24→22:37)
[2020-06-13] MEDS: BETHANECHOL CHLORIDE 25 MG TABLET GT SCH ×3 (05:24→18:32)
[2020-06-13] MEDS: BANATROL PLUS POWDER PACKET PO SCH ×3 (05:24→22:21)
[2020-06-13] MEDS: BUDESONIDE 0.25 MG/2ML INH SUSP VIAL NEB SCH ×2 (07:00→20:15)
[2020-06-13 08:14] LABS: BASO % 0.3 % (0-2.0); EOS % 1.4 % (0-4.5); HEMATOCRIT 41.6 % (35.4-49); HEMOGLOBIN 14.1 GM/dL (11.7-16.9); MCH 33.3 pg (25.7-33.7); MCHC 33.8 g/dl (32.0-35.9); MEAN CELL VOLUME 98.5 fl (80-96); MEAN PLT VOLUME 11.2 fl (7.5-11.1); MONO % 5.9 % (3.8-10.2); NEUT % 73.4 % (42.8-82.8); PLATELET COUNT 261 K/MM3 (134-434); RBC 4.22 M/mm3 (4.00-5.60); RDW 13.9 % (11.9-15.9); WHITE BLOOD COUNT 12.3 K/mm3 (4.0-10.0)
[2020-06-13 08:29] LABS: POTASSIUM 4.1 mmol/L (3.5-5.1)
[2020-06-13 08:38] LABS: ALBUMIN 3.6 g/dl (3.4-5.0); CALCIUM 9.3 mg/dL (8.5-10.1)
[2020-06-13 08:40] LABS: MAGNESIUM 2.1 mg/dL (1.8-2.4)
[2020-06-13 08:43] LABS: CREATININE 0.6 mg/dL (0.55-1.3)
[2020-06-13 08:44] LABS: BILIRUBIN,TOTAL 0.4 mg/dL (0.2-1); TOT PROT 8.1 g/dl (6.4-8.2)
[2020-06-13] MEDS ORDERED: DEXTROSE 5%-WATER - 50 ML IVPB ONE ×2 (09:19→14:24)
[2020-06-13] MEDS ORDERED: cefTRIAXone SODIUM 1 GM VIAL ONE (09:19)
[2020-06-13] MEDS: lamoTRIgine 100 MG TABLET GT SCH ×2 (09:27→22:36)
[2020-06-13] MEDS: ENOXAPARIN NA (PORCINE) 40 MG/0.4 ML DISP.SYRIN SQ SCH (09:27)
[2020-06-13] MEDS: DOCUSATE NA 100 MG/10 ML UNIT-DOSE CUPS GT SCH ×2 (09:27→22:40)
[2020-06-13] MEDS: AMINO ACIDS/PROTEIN HYDROLYS 30 ML LIQUID.PKT PO SCH (09:27)
[2020-06-13] MEDS: FAMOTIDINE 40 MG/5 ML ORAL SUSPENSION PEG SCH ×2 (09:28→22:22)
[2020-06-13] MEDS: ACYCLOVIR 200 MG/5 ML LIQUID GT SCH ×2 (09:28→22:22)
[2020-06-13] MEDS: MAGNESIUM HYDROX 2400MG/30ML ORAL SUSPENSION 30 ML CUP GT SCH ×2 (09:28→22:40)
[2020-06-13] MEDS: CEFTRIAXONE 1 GM in DEXTROSE 5%-WATER - 50 ML IVPB SCH (09:29)
[2020-06-13] MEDS: PHENobarbital 20 MG/5 ML UNIT-DOSE CUP NGT SCH ×2 (09:40→22:36)
[2020-06-13] MEDS: AZITHROMYCIN IVPB 500 MG/250 ML BAG IVPB SCH (10:14)
[2020-06-13] MEDS ORDERED: PIPERACILLIN/TAZOBACTAM 3.375 GM VIAL IVPB ONE (14:24)
[2020-06-13] MEDS ORDERED: BISACODYL 10 MG SUPP.RECT RC PRN (15:10)
[2020-06-13] MEDS ORDERED: diphenhydrAMINE HCL 12.5 MG/5 ML UNIT-DOSE CUPS GT PRN (15:10)
[2020-06-13] MEDS ORDERED: diazePAM RECTAL GEL 10 MG KIT (PRE-CALIBRATED) RC PRN (15:10)
[2020-06-13] MEDS: PIPERACILLIN/TAZOB 3.375 GM 3.375 GM in DEXTROSE 5%-WATER - 50 ML IVPB SCH ×3 (16:00→19:00)
[2020-06-13] MEDS: MULTIVIT-MINERALS ORAL LIQUID GT SCH (22:21)
[2020-06-13] MEDS: cloBAZam 10 MG TABLET GT SCH (22:39)
[2020-06-13] MEDS: LACTOBACILLUS ACIDOPHILUS 1 TABLET NGT SCH (22:40)
[2020-06-14] MEDS: BETHANECHOL CHLORIDE 25 MG TABLET GT SCH ×5 (00:21→23:14)
[2020-06-14] MEDS ORDERED: PIPERACILLIN/TAZOBACTAM 3.375 GM VIAL IVPB ONE ×3 (02:58→17:24)
[2020-06-14] MEDS ORDERED: DEXTROSE 5%-WATER - 50 ML IVPB ONE ×3 (02:58→17:24)
[2020-06-14] MEDS: PIPERACILLIN/TAZOB 3.375 GM 3.375 GM in DEXTROSE 5%-WATER - 50 ML IVPB SCH ×3 (03:13→17:45)
[2020-06-14] MEDS ORDERED: PT OWN MED DRAWER 7, Y5N ONE ×6 (05:37→23:09)
[2020-06-14] MEDS: BANATROL PLUS POWDER PACKET PO SCH ×3 (05:46→23:11)
[2020-06-14] MEDS: clonazePAM 0.5 MG TABLET GT SCH ×3 (05:47→23:10)
[2020-06-14] MEDS: BUDESONIDE 0.25 MG/2ML INH SUSP VIAL NEB SCH ×2 (08:15→20:16)
[2020-06-14] MEDS: lamoTRIgine 100 MG TABLET GT SCH ×2 (09:44→23:11)
[2020-06-14] MEDS: AMINO ACIDS/PROTEIN HYDROLYS 30 ML LIQUID.PKT PO SCH (09:45)
[2020-06-14] MEDS: MAGNESIUM HYDROX 2400MG/30ML ORAL SUSPENSION 30 ML CUP GT SCH ×2 (09:47→23:12)
[2020-06-14] MEDS: ACYCLOVIR 200 MG/5 ML LIQUID GT SCH ×2 (09:47→23:18)
[2020-06-14] MEDS: AZITHROMYCIN IVPB 500 MG/250 ML BAG IVPB SCH (09:47)
[2020-06-14] MEDS: FAMOTIDINE 40 MG/5 ML ORAL SUSPENSION PEG SCH ×2 (09:47→23:16)
[2020-06-14] MEDS: ENOXAPARIN NA (PORCINE) 40 MG/0.4 ML DISP.SYRIN SQ SCH (09:47)
[2020-06-14] MEDS: PHENobarbital 20 MG/5 ML UNIT-DOSE CUP NGT SCH ×2 (09:47→23:14)
[2020-06-14] MEDS: DOCUSATE NA 100 MG/10 ML UNIT-DOSE CUPS GT SCH ×2 (09:47→23:21)
[2020-06-14 10:06] LABS: BASO % 0.3 % (0-2.0); EOS % 1.5 % (0-4.5); HEMATOCRIT 43.3 % (35.4-49); HEMOGLOBIN 14.9 GM/dL (11.7-16.9); LYMPH % 5.7 % (8-40); MCH 33.9 pg (25.7-33.7); MCHC 34.4 g/dl (32.0-35.9); MEAN CELL VOLUME 98.4 fl (80-96); MONO % 7.6 % (3.8-10.2); NEUT % 84.9 % (42.8-82.8); PLATELET COUNT 210 K/MM3 (134-434); RDW 13.7 % (11.9-15.9); WHITE BLOOD COUNT 9.1 K/mm3 (4.0-10.0)
[2020-06-14 10:37] LABS: ALBUMIN 3.4 g/dl (3.4-5.0); BLOOD UREA NITROGEN 11.2 mg/dL (7-18); CALCIUM 8.8 mg/dL (8.5-10.1)
[2020-06-14 10:38] LABS: BILIRUBIN,TOTAL 0.6 mg/dL (0.2-1); MAGNESIUM 1.9 mg/dL (1.8-2.4); TOT PROT 8.1 g/dl (6.4-8.2)
[2020-06-14 10:40] LABS: CREATININE 0.5 mg/dL (0.55-1.3)
[2020-06-14] MEDS: ACETAMINOPHEN 325 MG TABLET (FP) PO PRN (11:55)
[2020-06-14] MEDS: cloBAZam 10 MG TABLET GT SCH (23:10)
[2020-06-14] MEDS: LACTOBACILLUS ACIDOPHILUS 1 TABLET NGT SCH (23:10)
[2020-06-14] MEDS: MULTIVIT-MINERALS ORAL LIQUID GT SCH (23:18)
[2020-06-15] MEDS ORDERED: DEXTROSE 5%-WATER - 50 ML IVPB ONE ×3 (01:09→17:19)
[2020-06-15] MEDS ORDERED: PIPERACILLIN/TAZOBACTAM 3.375 GM VIAL IVPB ONE ×3 (01:09→17:19)
[2020-06-15] MEDS: PIPERACILLIN/TAZOB 3.375 GM 3.375 GM in DEXTROSE 5%-WATER - 50 ML IVPB SCH ×3 (01:10→17:30)
[2020-06-15] MEDS: clonazePAM 0.5 MG TABLET GT SCH ×3 (06:46→21:27)
[2020-06-15] MEDS: BETHANECHOL CHLORIDE 25 MG TABLET GT SCH ×4 (06:46→23:13)
[2020-06-15] MEDS: BANATROL PLUS POWDER PACKET PO SCH (06:47)
[2020-06-15] MEDS ORDERED: PT OWN MED DRAWER 7, Y5N ONE ×2 (06:55→22:59)
[2020-06-15] MEDS: BUDESONIDE 0.25 MG/2ML INH SUSP VIAL NEB SCH ×2 (07:25→20:45)
[2020-06-15 10:05] LABS: BASO % 0.3 % (0-2.0); EOS % 6.4 % (0-4.5); HEMOGLOBIN 13.5 GM/dL (11.7-16.9); LYMPH % 14.3 % (8-40); MCH 33.4 pg (25.7-33.7); MCHC 34.6 g/dl (32.0-35.9); MEAN CELL VOLUME 96.5 fl (80-96); MEAN PLT VOLUME 10.7 fl (7.5-11.1); MONO % 8.7 % (3.8-10.2); NEUT % 70.3 % (42.8-82.8); PLATELET COUNT 210 K/MM3 (134-434); RBC 4.04 M/mm3 (4.00-5.60); RDW 13.6 % (11.9-15.9); WHITE BLOOD COUNT 6.2 K/mm3 (4.0-10.0)
[2020-06-15 10:27] LABS: POTASSIUM 3.9 mmol/L (3.5-5.1)
[2020-06-15 10:30] LABS: CALCIUM 8.8 mg/dL (8.5-10.1)
[2020-06-15 10:31] LABS: ALBUMIN 3.3 g/dl (3.4-5.0); BLOOD UREA NITROGEN 8.6 mg/dL (7-18); MAGNESIUM 1.9 mg/dL (1.8-2.4)
[2020-06-15 10:34] LABS: CREATININE 0.6 mg/dL (0.55-1.3)
[2020-06-15 10:35] LABS: BILIRUBIN,TOTAL 0.2 mg/dL (0.2-1)
[2020-06-15] MEDS: AMINO ACIDS/PROTEIN HYDROLYS 30 ML LIQUID.PKT PO SCH (10:35)
[2020-06-15 10:36] LABS: TOT PROT 7.6 g/dl (6.4-8.2)
[2020-06-15] MEDS: lamoTRIgine 100 MG TABLET GT SCH ×2 (10:36→21:27)
[2020-06-15] MEDS: AZITHROMYCIN IVPB 500 MG/250 ML BAG IVPB SCH (10:36)
[2020-06-15] MEDS: DOCUSATE NA 100 MG/10 ML UNIT-DOSE CUPS GT SCH ×2 (10:37→21:27)
[2020-06-15] MEDS: PHENobarbital 20 MG/5 ML UNIT-DOSE CUP NGT SCH ×2 (10:37→21:27)
[2020-06-15] MEDS: ENOXAPARIN NA (PORCINE) 40 MG/0.4 ML DISP.SYRIN SQ SCH (10:37)
[2020-06-15] MEDS: FAMOTIDINE 40 MG/5 ML ORAL SUSPENSION PEG SCH ×2 (10:38→21:28)
[2020-06-15] MEDS: MAGNESIUM HYDROX 2400MG/30ML ORAL SUSPENSION 30 ML CUP GT SCH ×2 (10:38→21:28)
[2020-06-15] MEDS: ACYCLOVIR 200 MG/5 ML LIQUID GT SCH ×2 (10:38→21:28)
[2020-06-15] MEDS ORDERED: FUROSEMIDE 40 MG/4 ML INJECTABLE VIAL IVPUSH ONE (13:30)
[2020-06-15] MEDS: cloBAZam 10 MG TABLET GT SCH (21:27)
[2020-06-15] MEDS: LACTOBACILLUS ACIDOPHILUS 1 TABLET NGT SCH (21:27)
[2020-06-15] MEDS: MULTIVIT-MINERALS ORAL LIQUID GT SCH (21:28)
[2020-06-16] MEDS ORDERED: PIPERACILLIN/TAZOBACTAM 3.375 GM VIAL IVPB ONE ×3 (01:19→17:06)
[2020-06-16] MEDS ORDERED: DEXTROSE 5%-WATER - 50 ML IVPB ONE ×3 (01:19→17:06)
[2020-06-16] MEDS: PIPERACILLIN/TAZOB 3.375 GM 3.375 GM in DEXTROSE 5%-WATER - 50 ML IVPB SCH ×3 (01:24→18:00)
[2020-06-16] MEDS: BETHANECHOL CHLORIDE 25 MG TABLET GT SCH ×3 (05:33→17:59)
[2020-06-16] MEDS: clonazePAM 0.5 MG TABLET GT SCH ×3 (05:33→22:33)
[2020-06-16] MEDS: BUDESONIDE 0.25 MG/2ML INH SUSP VIAL NEB SCH ×2 (08:05→20:45)
[2020-06-16 10:07] LABS: BASO % 0.4 % (0-2.0); EOS % 4.7 % (0-4.5); HEMATOCRIT 41.2 % (35.4-49); HEMOGLOBIN 14.1 GM/dL (11.7-16.9); LYMPH % 17.5 % (8-40); MCH 33.5 pg (25.7-33.7); MCHC 34.3 g/dl (32.0-35.9); MEAN CELL VOLUME 97.5 fl (80-96); MEAN PLT VOLUME 10.9 fl (7.5-11.1); MONO % 9.6 % (3.8-10.2); NEUT % 67.8 % (42.8-82.8); PLATELET COUNT 226 K/MM3 (134-434); RBC 4.23 M/mm3 (4.00-5.60); RDW 13.9 % (11.9-15.9)
[2020-06-16] MEDS: AMINO ACIDS/PROTEIN HYDROLYS 30 ML LIQUID.PKT PO SCH (10:24)
[2020-06-16] MEDS: FAMOTIDINE 40 MG/5 ML ORAL SUSPENSION PEG SCH ×2 (10:24→22:35)
[2020-06-16] MEDS: ACYCLOVIR 200 MG/5 ML LIQUID GT SCH ×2 (10:25→22:35)
[2020-06-16 10:30] LABS: ALBUMIN 3.5 g/dl (3.4-5.0); BLOOD UREA NITROGEN 10.4 mg/dL (7-18); MAGNESIUM 2.2 mg/dL (1.8-2.4)
[2020-06-16] MEDS: DOCUSATE NA 100 MG/10 ML UNIT-DOSE CUPS GT SCH ×2 (10:32→22:34)
[2020-06-16 10:33] LABS: CREATININE 0.6 mg/dL (0.55-1.3)
[2020-06-16] MEDS: lamoTRIgine 100 MG TABLET GT SCH ×2 (10:33→22:33)
[2020-06-16] MEDS: MAGNESIUM HYDROX 2400MG/30ML ORAL SUSPENSION 30 ML CUP GT SCH ×2 (10:33→22:34)
[2020-06-16] MEDS: ENOXAPARIN NA (PORCINE) 40 MG/0.4 ML DISP.SYRIN SQ SCH (10:33)
[2020-06-16 10:34] LABS: BILIRUBIN,TOTAL 0.6 mg/dL (0.2-1); TOT PROT 8.2 g/dl (6.4-8.2)
[2020-06-16] MEDS: PHENobarbital 20 MG/5 ML UNIT-DOSE CUP NGT SCH ×2 (10:34→22:33)
[2020-06-16] MEDS ORDERED: PT OWN MED DRAWER 7, Y5N ONE ×3 (17:06→23:35)
[2020-06-16] MEDS: cloBAZam 10 MG TABLET GT SCH (22:33)
[2020-06-16] MEDS: LACTOBACILLUS ACIDOPHILUS 1 TABLET NGT SCH (22:33)
[2020-06-16] MEDS: MULTIVIT-MINERALS ORAL LIQUID GT SCH (22:58)
[2020-06-17] MEDS: BETHANECHOL CHLORIDE 25 MG TABLET GT SCH ×5 (00:37→23:52)
[2020-06-17] MEDS ORDERED: PIPERACILLIN/TAZOBACTAM 3.375 GM VIAL IVPB ONE ×3 (02:07→17:47)
[2020-06-17] MEDS ORDERED: DEXTROSE 5%-WATER - 50 ML IVPB ONE ×3 (02:07→17:47)
[2020-06-17] MEDS: PIPERACILLIN/TAZOB 3.375 GM 3.375 GM in DEXTROSE 5%-WATER - 50 ML IVPB SCH ×3 (02:39→17:50)
[2020-06-17] MEDS: clonazePAM 0.5 MG TABLET GT SCH ×3 (05:17→22:28)
[2020-06-17] MEDS: BUDESONIDE 0.25 MG/2ML INH SUSP VIAL NEB SCH ×2 (07:30→20:00)
[2020-06-17] MEDS: AMINO ACIDS/PROTEIN HYDROLYS 30 ML LIQUID.PKT PO SCH (10:19)
[2020-06-17] MEDS: ACYCLOVIR 200 MG/5 ML LIQUID GT SCH ×2 (10:20→22:29)
[2020-06-17] MEDS: DOCUSATE NA 100 MG/10 ML UNIT-DOSE CUPS GT SCH ×2 (10:20→22:28)
[2020-06-17] MEDS: PHENobarbital 20 MG/5 ML UNIT-DOSE CUP NGT SCH ×2 (10:22→22:28)
[2020-06-17] MEDS: MAGNESIUM HYDROX 2400MG/30ML ORAL SUSPENSION 30 ML CUP GT SCH ×2 (10:23→22:28)
[2020-06-17] MEDS: FAMOTIDINE 40 MG/5 ML ORAL SUSPENSION PEG SCH ×2 (10:23→22:29)
[2020-06-17] MEDS: ENOXAPARIN NA (PORCINE) 40 MG/0.4 ML DISP.SYRIN SQ SCH (10:24)
[2020-06-17] MEDS: lamoTRIgine 100 MG TABLET GT SCH ×2 (10:25→22:27)
[2020-06-17] MEDS: ACETAMINOPHEN 325 MG TABLET (FP) PO PRN (10:25)
[2020-06-17 12:12] LABS: BASO % 0.4 % (0-2.0); EOS % 4.5 % (0-4.5); HEMATOCRIT 40.9 % (35.4-49); HEMOGLOBIN 13.9 GM/dL (11.7-16.9); LYMPH % 19.5 % (8-40); MCH 33.3 pg (25.7-33.7); MEAN CELL VOLUME 98.2 fl (80-96); MEAN PLT VOLUME 11.3 fl (7.5-11.1); MONO % 6.3 % (3.8-10.2); NEUT % 69.3 % (42.8-82.8); PLATELET COUNT 222 K/MM3 (134-434); RBC 4.16 M/mm3 (4.00-5.60); RDW 13.3 % (11.9-15.9); WHITE BLOOD COUNT 7.2 K/mm3 (4.0-10.0)
[2020-06-17 12:34] LABS: CALCIUM 9.4 mg/dL (8.5-10.1)
[2020-06-17 12:35] LABS: ALBUMIN 3.5 g/dl (3.4-5.0); BLOOD UREA NITROGEN 8.9 mg/dL (7-18)
[2020-06-17 12:38] LABS: CREATININE 0.6 mg/dL (0.55-1.3)
[2020-06-17 12:39] LABS: BILIRUBIN,TOTAL 0.5 mg/dL (0.2-1); TOT PROT 8.1 g/dl (6.4-8.2)
[2020-06-17] MEDS ORDERED: PT OWN MED DRAWER 7, Y5N ONE (17:47)
[2020-06-17] MEDS: cloBAZam 10 MG TABLET GT SCH (22:27)
[2020-06-17] MEDS: LACTOBACILLUS ACIDOPHILUS 1 TABLET NGT SCH (22:28)
[2020-06-17] MEDS: MULTIVIT-MINERALS ORAL LIQUID GT SCH (22:29)
[2020-06-18] MEDS ORDERED: PIPERACILLIN/TAZOBACTAM 3.375 GM VIAL IVPB ONE ×3 (01:57→17:09)
[2020-06-18] MEDS ORDERED: DEXTROSE 5%-WATER - 50 ML IVPB ONE ×3 (01:57→17:10)
[2020-06-18] MEDS: PIPERACILLIN/TAZOB 3.375 GM 3.375 GM in DEXTROSE 5%-WATER - 50 ML IVPB SCH ×3 (02:07→17:29)
[2020-06-18] MEDS: BETHANECHOL CHLORIDE 25 MG TABLET GT SCH ×4 (05:19→23:40)
[2020-06-18] MEDS: clonazePAM 0.5 MG TABLET GT SCH ×3 (05:19→22:52)
[2020-06-18] MEDS: BUDESONIDE 0.25 MG/2ML INH SUSP VIAL NEB SCH ×2 (08:25→22:58)
[2020-06-18 09:32] LABS: BASO % 0.3 % (0-2.0); EOS % 6.2 % (0-4.5); HEMATOCRIT 38.8 % (35.4-49); HEMOGLOBIN 13.4 GM/dL (11.7-16.9); LYMPH % 28.5 % (8-40); MCH 33.5 pg (25.7-33.7); MCHC 34.5 g/dl (32.0-35.9); MEAN PLT VOLUME 10.5 fl (7.5-11.1); MONO % 9.6 % (3.8-10.2); NEUT % 55.4 % (42.8-82.8); PLATELET COUNT 224 K/MM3 (134-434); RDW 13.6 % (11.9-15.9); WHITE BLOOD COUNT 6.3 K/mm3 (4.0-10.0)
[2020-06-18] MEDS: ENOXAPARIN NA (PORCINE) 40 MG/0.4 ML DISP.SYRIN SQ SCH (10:19)
[2020-06-18] MEDS: AMINO ACIDS/PROTEIN HYDROLYS 30 ML LIQUID.PKT PO SCH (10:19)
[2020-06-18] MEDS: lamoTRIgine 100 MG TABLET GT SCH ×2 (10:19→22:52)
[2020-06-18] MEDS: PHENobarbital 20 MG/5 ML UNIT-DOSE CUP NGT SCH ×2 (10:19→22:52)
[2020-06-18] MEDS: MAGNESIUM HYDROX 2400MG/30ML ORAL SUSPENSION 30 ML CUP GT SCH ×2 (10:19→22:52)
[2020-06-18] MEDS: DOCUSATE NA 100 MG/10 ML UNIT-DOSE CUPS GT SCH ×2 (10:19→22:52)
[2020-06-18] MEDS: FAMOTIDINE 40 MG/5 ML ORAL SUSPENSION PEG SCH ×2 (10:20→22:53)
[2020-06-18] MEDS: ACYCLOVIR 200 MG/5 ML LIQUID GT SCH ×2 (10:20→22:53)
[2020-06-18 10:46] LABS: ALBUMIN 3.3 g/dl (3.4-5.0)
[2020-06-18 10:47] LABS: BLOOD UREA NITROGEN 9.4 mg/dL (7-18)
[2020-06-18 10:48] LABS: CALCIUM 9.1 mg/dL (8.5-10.1)
[2020-06-18 10:49] LABS: MAGNESIUM 2.1 mg/dL (1.8-2.4)
[2020-06-18 10:52] LABS: CREATININE 0.5 mg/dL (0.55-1.3)
[2020-06-18 10:53] LABS: BILIRUBIN,TOTAL 0.2 mg/dL (0.2-1); TOT PROT 7.8 g/dl (6.4-8.2)
[2020-06-18] MEDS ORDERED: PT OWN MED DRAWER 7, Y5N ONE (22:44)
[2020-06-18] MEDS: LACTOBACILLUS ACIDOPHILUS 1 TABLET NGT SCH (22:52)
[2020-06-18] MEDS: cloBAZam 10 MG TABLET GT SCH (22:53)
[2020-06-19] MEDS ORDERED: PIPERACILLIN/TAZOBACTAM 3.375 GM VIAL IVPB ONE ×4 (00:57→18:07)
[2020-06-19] MEDS ORDERED: DEXTROSE 5%-WATER - 50 ML IVPB ONE ×3 (00:57→16:15)
[2020-06-19] MEDS: PIPERACILLIN/TAZOB 3.375 GM 3.375 GM in DEXTROSE 5%-WATER - 50 ML IVPB SCH ×3 (02:08→18:09)
[2020-06-19] MEDS ORDERED: PT OWN MED DRAWER 7, Y5N ONE ×7 (05:29→22:27)
[2020-06-19] MEDS: BETHANECHOL CHLORIDE 25 MG TABLET GT SCH ×3 (05:34→18:09)
[2020-06-19] MEDS: clonazePAM 0.5 MG TABLET GT SCH ×3 (05:34→22:34)
[2020-06-19] MEDS: BUDESONIDE 0.25 MG/2ML INH SUSP VIAL NEB SCH ×2 (08:56→20:30)
[2020-06-19 09:30] LABS: BASO % 0.4 % (0-2.0); HEMATOCRIT 40.4 % (35.4-49); HEMOGLOBIN 13.9 GM/dL (11.7-16.9); LYMPH % 20.6 % (8-40); MCH 33.5 pg (25.7-33.7); MCHC 34.3 g/dl (32.0-35.9); MEAN CELL VOLUME 97.6 fl (80-96); MEAN PLT VOLUME 10.8 fl (7.5-11.1); MONO % 7.3 % (3.8-10.2); NEUT % 67.7 % (42.8-82.8); PLATELET COUNT 211 K/MM3 (134-434); RBC 4.14 M/mm3 (4.00-5.60); RDW 13.5 % (11.9-15.9); WHITE BLOOD COUNT 10.3 K/mm3 (4.0-10.0)
[2020-06-19] MEDS: PHENobarbital 20 MG/5 ML UNIT-DOSE CUP NGT SCH ×2 (10:03→22:37)
[2020-06-19] MEDS: AMINO ACIDS/PROTEIN HYDROLYS 30 ML LIQUID.PKT PO SCH (10:03)
[2020-06-19] MEDS: lamoTRIgine 100 MG TABLET GT SCH ×2 (10:04→22:36)
[2020-06-19] MEDS: DOCUSATE NA 100 MG/10 ML UNIT-DOSE CUPS GT SCH ×2 (10:04→22:34)
[2020-06-19] MEDS: ENOXAPARIN NA (PORCINE) 40 MG/0.4 ML DISP.SYRIN SQ SCH (10:04)
[2020-06-19] MEDS: MAGNESIUM HYDROX 2400MG/30ML ORAL SUSPENSION 30 ML CUP GT SCH ×2 (10:04→22:32)
[2020-06-19 10:06] LABS: POTASSIUM 4.1 mmol/L (3.5-5.1)
[2020-06-19] MEDS: FAMOTIDINE 40 MG/5 ML ORAL SUSPENSION PEG SCH ×2 (10:07→22:39)
[2020-06-19] MEDS: ACYCLOVIR 200 MG/5 ML LIQUID GT SCH ×2 (10:08→22:38)
[2020-06-19 10:32] LABS: ALBUMIN 3.4 g/dl (3.4-5.0); BLOOD UREA NITROGEN 9.8 mg/dL (7-18); CALCIUM 9.2 mg/dL (8.5-10.1); MAGNESIUM 2.2 mg/dL (1.8-2.4)
[2020-06-19 10:36] LABS: CREATININE 0.5 mg/dL (0.55-1.3)
[2020-06-19 10:37] LABS: BILIRUBIN,TOTAL 0.9 mg/dL (0.2-1)
[2020-06-19 11:55] LABS: PLATELET ESTIMATE NORMAL
[2020-06-19] MEDS: ACETAMINOPHEN 325 MG TABLET (FP) PO PRN (18:09)
[2020-06-19] MEDS: cloBAZam 10 MG TABLET GT SCH (22:35)
[2020-06-19] MEDS: SIMETHICONE 40 MG/0.6 ML BOTTLE GT PRN (22:36)
[2020-06-19] MEDS: LACTOBACILLUS ACIDOPHILUS 1 TABLET NGT SCH (22:40)
[2020-06-19] MEDS: MULTIVIT-MINERALS ORAL LIQUID GT SCH ×2 (22:40)
[2020-06-20] MEDS: BETHANECHOL CHLORIDE 25 MG TABLET GT SCH ×5 (00:15→23:23)
[2020-06-20] MEDS ORDERED: DEXTROSE 5%-WATER - 50 ML IVPB ONE ×2 (01:49→09:58)
[2020-06-20] MEDS ORDERED: PIPERACILLIN/TAZOBACTAM 3.375 GM VIAL IVPB ONE ×2 (01:49→09:58)
[2020-06-20] MEDS: PIPERACILLIN/TAZOB 3.375 GM 3.375 GM in DEXTROSE 5%-WATER - 50 ML IVPB SCH ×2 (02:15→10:10)
[2020-06-20] MEDS: clonazePAM 0.5 MG TABLET GT SCH ×3 (05:08→23:17)
[2020-06-20] MEDS: BUDESONIDE 0.25 MG/2ML INH SUSP VIAL NEB SCH ×2 (08:28→20:40)
[2020-06-20] MEDS ORDERED: PT OWN MED DRAWER 7, Y5N ONE ×2 (09:58→21:22)
[2020-06-20] MEDS: DOCUSATE NA 100 MG/10 ML UNIT-DOSE CUPS GT SCH ×2 (10:09→21:29)
[2020-06-20] MEDS: ENOXAPARIN NA (PORCINE) 40 MG/0.4 ML DISP.SYRIN SQ SCH (10:09)
[2020-06-20] MEDS: PHENobarbital 20 MG/5 ML UNIT-DOSE CUP NGT SCH (10:10)
[2020-06-20] MEDS: lamoTRIgine 100 MG TABLET GT SCH ×2 (10:10→21:29)
[2020-06-20] MEDS: ACYCLOVIR 200 MG/5 ML LIQUID GT SCH ×2 (10:11→21:30)
[2020-06-20] MEDS: SIMETHICONE 40 MG/0.6 ML BOTTLE GT PRN (10:11)
[2020-06-20] MEDS: AMINO ACIDS/PROTEIN HYDROLYS 30 ML LIQUID.PKT PO SCH (10:11)
[2020-06-20] MEDS: MAGNESIUM HYDROX 2400MG/30ML ORAL SUSPENSION 30 ML CUP GT SCH ×2 (10:12→21:29)
[2020-06-20] MEDS: FAMOTIDINE 40 MG/5 ML ORAL SUSPENSION PEG SCH ×2 (10:12→21:30)
[2020-06-20 11:31] LABS: BASO % 0.7 % (0-2.0); EOS % 4.5 % (0-4.5); HEMATOCRIT 38.9 % (35.4-49); HEMOGLOBIN 13.2 GM/dL (11.7-16.9); LYMPH % 23.1 % (8-40); MCH 33.4 pg (25.7-33.7); MEAN CELL VOLUME 98.2 fl (80-96); MEAN PLT VOLUME 10.3 fl (7.5-11.1); MONO % 7.9 % (3.8-10.2); NEUT % 63.8 % (42.8-82.8); PLATELET COUNT 228 K/MM3 (134-434); RBC 3.96 M/mm3 (4.00-5.60); RDW 13.6 % (11.9-15.9); WHITE BLOOD COUNT 6.4 K/mm3 (4.0-10.0)
[2020-06-20 11:58] LABS: POTASSIUM 3.9 mmol/L (3.5-5.1)
[2020-06-20 12:02] LABS: ALBUMIN 3.4 g/dl (3.4-5.0); BLOOD UREA NITROGEN 9.8 mg/dL (7-18); CALCIUM 9.5 mg/dL (8.5-10.1)
[2020-06-20 12:03] LABS: MAGNESIUM 2.1 mg/dL (1.8-2.4)
[2020-06-20 12:05] LABS: CREATININE 0.6 mg/dL (0.55-1.3)
[2020-06-20 12:07] LABS: BILIRUBIN,TOTAL 0.3 mg/dL (0.2-1); TOT PROT 7.8 g/dl (6.4-8.2)
[2020-06-20] MEDS: LACTOBACILLUS ACIDOPHILUS 1 TABLET NGT SCH (21:30)
[2020-06-20] MEDS ORDERED: clonazePAM 0.5 MG TABLET GT SCH (22:18)
[2020-06-20] MEDS ORDERED: PHENobarbital 30 MG TABLET GT SCH (22:19)
[2020-06-20] MEDS: PHENobarbital 30 MG TABLET GT SCH (23:18)
[2020-06-21] MEDS: MULTIVIT-MINERALS ORAL LIQUID GT SCH (00:43)
[2020-06-21] MEDS: clonazePAM 0.5 MG TABLET GT SCH (05:14)
[2020-06-21] MEDS: BETHANECHOL CHLORIDE 25 MG TABLET GT SCH ×2 (05:14→11:02)
[2020-06-21] MEDS ORDERED: clonazePAM 0.5 MG TABLET GT SCH (06:00)
[2020-06-21] MEDS: BUDESONIDE 0.25 MG/2ML INH SUSP VIAL NEB SCH (08:35)
[2020-06-21] MEDS ORDERED: PHENobarbital 30 MG TABLET GT SCH (10:00)
[2020-06-21] MEDS: MAGNESIUM HYDROX 2400MG/30ML ORAL SUSPENSION 30 ML CUP GT SCH (10:30)
[2020-06-21] MEDS: AMINO ACIDS/PROTEIN HYDROLYS 30 ML LIQUID.PKT PO SCH (10:30)
[2020-06-21] MEDS: lamoTRIgine 100 MG TABLET GT SCH (10:40)
[2020-06-21] MEDS: ACYCLOVIR 200 MG/5 ML LIQUID GT SCH (10:41)
[2020-06-21] MEDS: DOCUSATE NA 100 MG/10 ML UNIT-DOSE CUPS GT SCH (10:43)
[2020-06-21] MEDS: FAMOTIDINE 40 MG/5 ML ORAL SUSPENSION PEG SCH (10:44)
[2020-06-21] MEDS: PHENobarbital 30 MG TABLET GT SCH (10:46)
[2020-06-21 11:26] VITALS: BP 110/65; PULSE 97; TEMP 98.9
== END 2020-06-21 14:01 | disposition home or self-care (01) | DRG 137 ==
LOC: JER 13:33 → JERBED 17:43 → J4S 06-07 01:02 → J5S 06-13 15:49
PROVIDERS: ADMIT Internal Medicine; ATTEND Nurse Practitioner Acute Care
DX: J69.0 Pneumonitis due to inhalation of food and vomit (principal); J96.01 Acute respiratory failure with hypoxia; B00.4 Herpesviral encephalitis; G40.909 Epilepsy, unspecified, not intractable, without status epilepticus; F73 Profound intellectual disabilities; Z93.1 Gastrostomy status; G80.9 Cerebral palsy, unspecified; R13.10 Dysphagia, unspecified; R33.9 Retention of urine, unspecified
CPT/HCPCS: 36415; 71045-TC-FY; 71250-TC; 80053; 81003; 82248; 82550; 82728; 82803; 83605; 83615; 83735; 84100; 84484; 85025; 85610; 85730; 86140; 86769; 87040; 87070; 87086; 87186; 87205; 87804; 87807; 87899; 93005; 93010; 94640; 99285-25; C9803; U0003

== ENCOUNTER 2020-07-04 14:24 | Inpatient (IN) | payer OTHER ==
[2020-07-04] MEDS ORDERED: SODIUM CHLORIDE 500 ML IV STA (15:38)
[2020-07-04] MEDS ORDERED: PIPERACILLIN/TAZOB 4.5 GM 4.5 GM in DEXTROSE 5%-WATER 100 ML IVPB ONE (16:13)
[2020-07-04] MEDS ORDERED: VANCOMYCIN 1 GM in D5W (PRE-DOCKED) 1,000 MG/250 ML IVPB ONE (16:14)
[2020-07-04] MEDS ORDERED: PIPERACILLIN/TAZOB 4.5 GM 4.5 GM/100 ML BAG IVPB ONE (16:58)
[2020-07-04 17:08] LABS: BASO % 0.3 % (0-2.0); EOS % 1.7 % (0-4.5); HEMATOCRIT 45.9 % (35.4-49); HEMOGLOBIN 15.4 GM/dL (11.7-16.9); LYMPH % 36.5 % (8-40); MCHC 33.6 g/dl (32.0-35.9); MEAN CELL VOLUME 98.1 fl (80-96); MEAN PLT VOLUME 11.1 fl (7.5-11.1); MONO % 8.1 % (3.8-10.2); NEUT % 53.4 % (42.8-82.8); PLATELET COUNT 277 K/MM3 (134-434); RBC 4.68 M/mm3 (4.00-5.60); RDW 14.3 % (11.9-15.9); WHITE BLOOD COUNT 7.8 K/mm3 (4.0-10.0)
[2020-07-04 17:16] LABS: INR 1.04 (0.83-1.09); PROTHROMBIN TIME (PATIENT) 12.8 SEC (9.7-13.0)
[2020-07-04 17:28] LABS: CHLORIDE 107 mmol/L (98-107); SODIUM 140 mmol/L (136-145)
[2020-07-04 17:31] LABS: ALBUMIN 3.9 g/dl (3.4-5.0); BLOOD UREA NITROGEN 11.2 mg/dL (7-18); CALCIUM 9.8 mg/dL (8.5-10.1); CO2 27 mmol/L (21-32)
[2020-07-04 17:32] LABS: GLUCOSE,RANDOM 88 mg/dL (74-106)
[2020-07-04 17:34] LABS: CREATININE 0.6 mg/dL (0.55-1.3); SGOT/AST 65 U/L (15-37)
[2020-07-04 17:35] LABS: BILIRUBIN,TOTAL 0.3 mg/dL (0.2-1); TOT PROT 9.2 g/dl (6.4-8.2)
[2020-07-04 17:36] LABS: SGPT/ALT 38 U/L (13-61)
[2020-07-04 17:41] LABS: ALK PHOS 188 U/L (45-117)
[2020-07-04] MEDS ORDERED: VANCOMYCIN 1 GRAM (PRE-DOCKED) 1,000 MG/250 ML BAG IVPB ONE (17:55)
[2020-07-04 18:01] LABS: ANION GAP 6 MMOL/L (8-16)
[2020-07-04 18:03] LABS: POTASSIUM 6.5 mmol/L (3.5-5.1)
[2020-07-04 19:51] LABS: POTASSIUM 4.2 mmol/L (3.5-5.1)
[2020-07-04 19:52] LABS: CALCIUM 9.2 mg/dL (8.5-10.1)
[2020-07-04 19:56] LABS: CREATININE 0.7 mg/dL (0.55-1.3)
[2020-07-04] MEDS ORDERED: SODIUM CHLORIDE 1,000 ML IV SCH (20:30)
[2020-07-04 23:57] VITALS: BMI 19.5
[2020-07-05] MEDS ORDERED: DEXTROSE 5%-WATER - 50 ML IVPB ONE ×3 (01:09→16:49)
[2020-07-05] MEDS ORDERED: PIPERACILLIN/TAZOBACTAM 3.375 GM VIAL IVPB ONE ×3 (01:09→16:49)
[2020-07-05] MEDS: PIPERACILLIN/TAZOB 3.375 GM 3.375 GM in DEXTROSE 5%-WATER - 50 ML IVPB SCH ×4 (01:45→17:07)
[2020-07-05] MEDS: clonazePAM 0.5 MG TABLET GT SCH ×3 (05:57→22:03)
[2020-07-05] MEDS: cloBAZam 10 MG TABLET GT SCH ×2 (06:00→22:04)
[2020-07-05 07:51] LABS: BASO % 0.2 % (0-2.0); EOS % 1.4 % (0-4.5); HEMATOCRIT 41.1 % (35.4-49); LYMPH % 2.4 % (8-40); MCH 33.2 pg (25.7-33.7); MCHC 34.1 g/dl (32.0-35.9); MEAN CELL VOLUME 97.6 fl (80-96); MEAN PLT VOLUME 10.9 fl (7.5-11.1); MONO % 6.2 % (3.8-10.2); NEUT % 89.8 % (42.8-82.8); PLATELET COUNT 226 K/MM3 (134-434); RBC 4.21 M/mm3 (4.00-5.60); RDW 13.9 % (11.9-15.9); WHITE BLOOD COUNT 10.3 K/mm3 (4.0-10.0)
[2020-07-05 08:22] LABS: POTASSIUM 4.1 mmol/L (3.5-5.1)
[2020-07-05 08:25] LABS: CALCIUM 8.8 mg/dL (8.5-10.1)
[2020-07-05 08:26] LABS: ALBUMIN 3.4 g/dl (3.4-5.0); BLOOD UREA NITROGEN 9.7 mg/dL (7-18); MAGNESIUM 1.8 mg/dL (1.8-2.4)
[2020-07-05 08:29] LABS: CREATININE 0.6 mg/dL (0.55-1.3); PHOSPHOROUS 4.1 mg/dL (2.5-4.9)
[2020-07-05 08:31] LABS: TOT PROT 7.7 g/dl (6.4-8.2)
[2020-07-05 08:34] LABS: BILIRUBIN,TOTAL 0.4 mg/dL (0.2-1)
[2020-07-05] MEDS: lamoTRIgine 100 MG TABLET GT SCH ×2 (10:57→22:02)
[2020-07-05] MEDS: PHENobarbital 20 MG/5 ML UNIT-DOSE CUP GT SCH ×2 (10:57→22:02)
[2020-07-05] MEDS: ENOXAPARIN NA (PORCINE) 40 MG/0.4 ML DISP.SYRIN SQ SCH (10:57)
[2020-07-05] MEDS: ACYCLOVIR 200 MG/5 ML LIQUID GT SCH ×2 (10:57→22:04)
[2020-07-05] MEDS ORDERED: diazePAM RECTAL GEL 10 MG KIT (PRE-CALIBRATED) RC PRN (17:40)
[2020-07-05] MEDS ORDERED: PT OWN MED DRAWER 7, Y5N ONE ×2 (18:41→21:57)
[2020-07-05] MEDS: MULTIVIT-MINERALS ORAL LIQUID GT SCH (22:01)
[2020-07-05] MEDS: BETHANECHOL CHLORIDE 25 MG TABLET GT SCH (22:05)
[2020-07-06] MEDS ORDERED: PIPERACILLIN/TAZOBACTAM 3.375 GM VIAL IVPB ONE ×2 (00:48→09:38)
[2020-07-06] MEDS ORDERED: DEXTROSE 5%-WATER - 50 ML IVPB ONE ×2 (00:48→09:38)
[2020-07-06] MEDS: PIPERACILLIN/TAZOB 3.375 GM 3.375 GM in DEXTROSE 5%-WATER - 50 ML IVPB SCH ×3 (01:01→17:01)
[2020-07-06] MEDS ORDERED: PT OWN MED DRAWER 7, Y5N ONE (05:47)
[2020-07-06] MEDS: BETHANECHOL CHLORIDE 25 MG TABLET GT SCH ×3 (06:08→22:17)
[2020-07-06] MEDS: clonazePAM 0.5 MG TABLET GT SCH ×3 (06:08→22:20)
[2020-07-06] MEDS: cloBAZam 10 MG TABLET GT SCH ×2 (06:09→22:18)
[2020-07-06 10:31] LABS: BASO % 0.4 % (0-2.0); EOS % 7.4 % (0-4.5); HEMATOCRIT 39.2 % (35.4-49); HEMOGLOBIN 13.3 GM/dL (11.7-16.9); LYMPH % 24.4 % (8-40); MCH 32.9 pg (25.7-33.7); MCHC 33.8 g/dl (32.0-35.9); MEAN CELL VOLUME 97.2 fl (80-96); MEAN PLT VOLUME 10.9 fl (7.5-11.1); MONO % 13.1 % (3.8-10.2); NEUT % 54.7 % (42.8-82.8); PLATELET COUNT 189 K/MM3 (134-434); RBC 4.03 M/mm3 (4.00-5.60); RDW 13.8 % (11.9-15.9); WHITE BLOOD COUNT 5.8 K/mm3 (4.0-10.0)
[2020-07-06] MEDS: ACYCLOVIR 200 MG/5 ML LIQUID GT SCH ×2 (10:41→22:19)
[2020-07-06] MEDS: PHENobarbital 20 MG/5 ML UNIT-DOSE CUP GT SCH ×2 (10:41→22:17)
[2020-07-06] MEDS: ENOXAPARIN NA (PORCINE) 40 MG/0.4 ML DISP.SYRIN SQ SCH (10:43)
[2020-07-06] MEDS: lamoTRIgine 100 MG TABLET GT SCH ×2 (10:43→22:18)
[2020-07-06 10:54] LABS: POTASSIUM 3.7 mmol/L (3.5-5.1)
[2020-07-06 11:00] LABS: ALBUMIN 3.4 g/dl (3.4-5.0)
[2020-07-06 11:05] LABS: CALCIUM 8.9 mg/dL (8.5-10.1)
[2020-07-06 12:34] LABS: MAGNESIUM 1.5 mg/dL (1.8-2.4)
[2020-07-06 12:36] LABS: TOT PROT 7.5 g/dl (6.4-8.2)
[2020-07-06] MEDS ORDERED: ALBUTEROL SO4 2.5/IPRATROPIUM 0.5 INH SOL 3 ML VIAL.NEB. NEB PRN (12:36)
[2020-07-06 12:37] LABS: CREATININE 0.6 mg/dL (0.55-1.3)
[2020-07-06 12:38] LABS: BILIRUBIN,TOTAL 0.6 mg/dL (0.2-1)
[2020-07-06] MEDS: MAGNESIUM OXIDE 400 MG TABLET (FP) GT SCH (13:10)
[2020-07-06] MEDS: MULTIVIT-MINERALS ORAL LIQUID GT SCH (22:20)
[2020-07-07] MEDS ORDERED: PIPERACILLIN/TAZOBACTAM 3.375 GM VIAL IVPB ONE ×3 (00:49→17:44)
[2020-07-07] MEDS ORDERED: DEXTROSE 5%-WATER - 50 ML IVPB ONE ×3 (00:50→17:44)
[2020-07-07] MEDS: MAGNESIUM OXIDE 400 MG TABLET (FP) GT SCH ×3 (01:05→23:13)
[2020-07-07] MEDS: PIPERACILLIN/TAZOB 3.375 GM 3.375 GM in DEXTROSE 5%-WATER - 50 ML IVPB SCH ×3 (01:06→17:45)
[2020-07-07] MEDS: BETHANECHOL CHLORIDE 25 MG TABLET GT SCH ×3 (05:37→23:13)
[2020-07-07] MEDS: clonazePAM 0.5 MG TABLET GT SCH ×3 (05:37→23:14)
[2020-07-07] MEDS: cloBAZam 10 MG TABLET GT SCH ×2 (06:15→23:14)
[2020-07-07 08:17] LABS: BASO % 0.7 % (0-2.0); EOS % 8.9 % (0-4.5); HEMATOCRIT 37.2 % (35.4-49); HEMOGLOBIN 12.5 GM/dL (11.7-16.9); LYMPH % 41.6 % (8-40); MCH 33.1 pg (25.7-33.7); MCHC 33.6 g/dl (32.0-35.9); MEAN CELL VOLUME 98.4 fl (80-96); MEAN PLT VOLUME 10.7 fl (7.5-11.1); MONO % 14.6 % (3.8-10.2); NEUT % 34.2 % (42.8-82.8); PLATELET COUNT 157 K/MM3 (134-434); RBC 3.78 M/mm3 (4.00-5.60); RDW 13.8 % (11.9-15.9); WHITE BLOOD COUNT 4.3 K/mm3 (4.0-10.0)
[2020-07-07 08:36] LABS: POTASSIUM 3.5 mmol/L (3.5-5.1)
[2020-07-07 08:43] LABS: CALCIUM 8.9 mg/dL (8.5-10.1)
[2020-07-07 08:44] LABS: BLOOD UREA NITROGEN 3.8 mg/dL (7-18); MAGNESIUM 1.6 mg/dL (1.8-2.4)
[2020-07-07 08:45] LABS: BILIRUBIN,TOTAL 0.3 mg/dL (0.2-1)
[2020-07-07 08:46] LABS: TOT PROT 6.8 g/dl (6.4-8.2)
[2020-07-07 08:47] LABS: CREATININE 0.5 mg/dL (0.55-1.3)
[2020-07-07] MEDS ORDERED: PT OWN MED DRAWER 7, Y5N ONE ×3 (09:22→23:06)
[2020-07-07] MEDS: PHENobarbital 20 MG/5 ML UNIT-DOSE CUP GT SCH ×2 (09:23→23:13)
[2020-07-07] MEDS: AMINO ACIDS/PROTEIN HYDROLYS 30 ML LIQUID.PKT PEG SCH (09:23)
[2020-07-07] MEDS: ACYCLOVIR 200 MG/5 ML LIQUID GT SCH ×2 (09:24→23:11)
[2020-07-07] MEDS: ENOXAPARIN NA (PORCINE) 40 MG/0.4 ML DISP.SYRIN SQ SCH (09:25)
[2020-07-07] MEDS: lamoTRIgine 100 MG TABLET GT SCH ×2 (09:25→23:14)
[2020-07-07] MEDS ORDERED: POTASSIUM CHLORIDE ORAL LIQUID 20 MEQ/15 ML PO ONE (10:34)
[2020-07-07] MEDS: MULTIVIT-MINERALS ORAL LIQUID GT SCH (23:12)
[2020-07-08] MEDS ORDERED: DEXTROSE 5%-WATER - 50 ML IVPB ONE ×3 (01:21→17:01)
[2020-07-08] MEDS ORDERED: PIPERACILLIN/TAZOBACTAM 3.375 GM VIAL IVPB ONE ×3 (01:21→17:01)
[2020-07-08] MEDS: PIPERACILLIN/TAZOB 3.375 GM 3.375 GM in DEXTROSE 5%-WATER - 50 ML IVPB SCH ×3 (01:26→17:03)
[2020-07-08] MEDS ORDERED: PT OWN MED DRAWER 7, Y5N ONE ×4 (06:42→22:36)
[2020-07-08] MEDS: cloBAZam 10 MG TABLET GT SCH ×2 (06:43→22:47)
[2020-07-08] MEDS: BETHANECHOL CHLORIDE 25 MG TABLET GT SCH ×3 (06:43→22:46)
[2020-07-08] MEDS: clonazePAM 0.5 MG TABLET GT SCH ×3 (06:44→22:47)
[2020-07-08 08:04] LABS: BASO % 0.3 % (0-2.0); EOS % 6.9 % (0-4.5); HEMATOCRIT 40.8 % (35.4-49); LYMPH % 27.6 % (8-40); MCH 33.5 pg (25.7-33.7); MCHC 34.3 g/dl (32.0-35.9); MEAN CELL VOLUME 97.6 fl (80-96); MEAN PLT VOLUME 10.5 fl (7.5-11.1); NEUT % 52.2 % (42.8-82.8); PLATELET COUNT 176 K/MM3 (134-434); RBC 4.18 M/mm3 (4.00-5.60); RDW 14.1 % (11.9-15.9); WHITE BLOOD COUNT 4.7 K/mm3 (4.0-10.0)
[2020-07-08 08:25] LABS: POTASSIUM 3.8 mmol/L (3.5-5.1)
[2020-07-08 08:27] LABS: ALBUMIN 3.4 g/dl (3.4-5.0); MAGNESIUM 1.7 mg/dL (1.8-2.4)
[2020-07-08 08:30] LABS: CREATININE 0.6 mg/dL (0.55-1.3)
[2020-07-08 08:31] LABS: BILIRUBIN,TOTAL 0.2 mg/dL (0.2-1)
[2020-07-08 08:32] LABS: TOT PROT 7.8 g/dl (6.4-8.2)
[2020-07-08] MEDS: ENOXAPARIN NA (PORCINE) 40 MG/0.4 ML DISP.SYRIN SQ SCH (09:41)
[2020-07-08] MEDS: AMINO ACIDS/PROTEIN HYDROLYS 30 ML LIQUID.PKT PEG SCH (09:41)
[2020-07-08] MEDS: ACYCLOVIR 200 MG/5 ML LIQUID GT SCH ×2 (09:43→22:46)
[2020-07-08] MEDS: PHENobarbital 20 MG/5 ML UNIT-DOSE CUP GT SCH ×2 (09:43→22:46)
[2020-07-08] MEDS: lamoTRIgine 100 MG TABLET GT SCH ×2 (09:44→22:47)
[2020-07-08] MEDS ORDERED: POTASSIUM CHLORIDE ORAL LIQUID 20 MEQ/15 ML GT ONE (13:51)
[2020-07-08] MEDS: MAGNESIUM OXIDE 400 MG TABLET (FP) GT SCH ×2 (14:18→22:47)
[2020-07-08] MEDS: MULTIVIT-MINERALS ORAL LIQUID GT SCH (22:46)
[2020-07-09] MEDS ORDERED: PIPERACILLIN/TAZOBACTAM 3.375 GM VIAL IVPB ONE ×3 (01:10→17:44)
[2020-07-09] MEDS ORDERED: DEXTROSE 5%-WATER - 50 ML IVPB ONE ×3 (01:10→17:44)
[2020-07-09] MEDS: PIPERACILLIN/TAZOB 3.375 GM 3.375 GM in DEXTROSE 5%-WATER - 50 ML IVPB SCH ×3 (01:22→17:26)
[2020-07-09] MEDS: cloBAZam 10 MG TABLET GT SCH ×2 (06:21→22:12)
[2020-07-09] MEDS: BETHANECHOL CHLORIDE 25 MG TABLET GT SCH ×3 (06:21→23:46)
[2020-07-09] MEDS: clonazePAM 0.5 MG TABLET GT SCH ×3 (06:21→22:10)
[2020-07-09] MEDS: ACYCLOVIR 200 MG/5 ML LIQUID GT SCH ×2 (11:10→22:12)
[2020-07-09] MEDS: AMINO ACIDS/PROTEIN HYDROLYS 30 ML LIQUID.PKT PEG SCH (11:17)
[2020-07-09] MEDS: PHENobarbital 20 MG/5 ML UNIT-DOSE CUP GT SCH ×2 (11:17→22:09)
[2020-07-09] MEDS: lamoTRIgine 100 MG TABLET GT SCH ×2 (11:18→22:10)
[2020-07-09] MEDS: ENOXAPARIN NA (PORCINE) 40 MG/0.4 ML DISP.SYRIN SQ SCH (11:18)
[2020-07-09 11:24] LABS: BASO % 0.2 % (0-2.0); EOS % 7.1 % (0-4.5); HEMATOCRIT 44.2 % (35.4-49); HEMOGLOBIN 15.2 GM/dL (11.7-16.9); LYMPH % 28.4 % (8-40); MCH 33.6 pg (25.7-33.7); MCHC 34.4 g/dl (32.0-35.9); MEAN CELL VOLUME 97.9 fl (80-96); MEAN PLT VOLUME 10.1 fl (7.5-11.1); MONO % 7.4 % (3.8-10.2); NEUT % 56.9 % (42.8-82.8); PLATELET COUNT 172 K/MM3 (134-434); RBC 4.52 M/mm3 (4.00-5.60); RDW 13.8 % (11.9-15.9); WHITE BLOOD COUNT 5.4 K/mm3 (4.0-10.0)
[2020-07-09 11:42] LABS: ALBUMIN 3.6 g/dl (3.4-5.0)
[2020-07-09 11:43] LABS: CALCIUM 9.4 mg/dL (8.5-10.1); MAGNESIUM 1.8 mg/dL (1.8-2.4)
[2020-07-09 11:44] LABS: BLOOD UREA NITROGEN 7.4 mg/dL (7-18)
[2020-07-09 11:46] LABS: CREATININE 0.6 mg/dL (0.55-1.3)
[2020-07-09 11:48] LABS: BILIRUBIN,TOTAL 0.3 mg/dL (0.2-1)
[2020-07-09 11:49] LABS: TOT PROT 8.2 g/dl (6.4-8.2)
[2020-07-09] MEDS ORDERED: MAGNESIUM OXIDE 400 MG TABLET (FP) GT ONE (16:44)
[2020-07-09] MEDS: MULTIVIT-MINERALS ORAL LIQUID GT SCH (22:11)
[2020-07-10] MEDS ORDERED: DEXTROSE 5%-WATER - 50 ML IVPB ONE ×4 (00:50→23:59)
[2020-07-10] MEDS ORDERED: PIPERACILLIN/TAZOBACTAM 3.375 GM VIAL IVPB ONE ×4 (00:50→23:59)
[2020-07-10] MEDS: PIPERACILLIN/TAZOB 3.375 GM 3.375 GM in DEXTROSE 5%-WATER - 50 ML IVPB SCH ×3 (01:05→17:23)
[2020-07-10] MEDS: cloBAZam 10 MG TABLET GT SCH ×2 (06:39→22:01)
[2020-07-10] MEDS: clonazePAM 0.5 MG TABLET GT SCH ×3 (06:39→22:00)
[2020-07-10] MEDS: BETHANECHOL CHLORIDE 25 MG TABLET GT SCH ×3 (06:39→22:02)
[2020-07-10 08:36] LABS: BASO % 0.5 % (0-2.0); EOS % 9.3 % (0-4.5); HEMOGLOBIN 14.2 GM/dL (11.7-16.9); LYMPH % 33.3 % (8-40); MCH 33.6 pg (25.7-33.7); MCHC 34.5 g/dl (32.0-35.9); MEAN CELL VOLUME 97.3 fl (80-96); MEAN PLT VOLUME 10.7 fl (7.5-11.1); MONO % 12.6 % (3.8-10.2); NEUT % 44.3 % (42.8-82.8); PLATELET COUNT 167 K/MM3 (134-434); RBC 4.22 M/mm3 (4.00-5.60); RDW 13.6 % (11.9-15.9); WHITE BLOOD COUNT 4.2 K/mm3 (4.0-10.0)
[2020-07-10 08:53] LABS: POTASSIUM 3.9 mmol/L (3.5-5.1)
[2020-07-10 09:01] LABS: ALBUMIN 3.5 g/dl (3.4-5.0); CALCIUM 9.1 mg/dL (8.5-10.1)
[2020-07-10 09:02] LABS: BLOOD UREA NITROGEN 10.2 mg/dL (7-18); MAGNESIUM 1.8 mg/dL (1.8-2.4)
[2020-07-10 09:05] LABS: CREATININE 0.6 mg/dL (0.55-1.3)
[2020-07-10 09:07] LABS: TOT PROT 7.9 g/dl (6.4-8.2)
[2020-07-10 09:08] LABS: BILIRUBIN,TOTAL 0.3 mg/dL (0.2-1)
[2020-07-10] MEDS ORDERED: PT OWN MED DRAWER 7, Y5N ONE ×2 (10:12→13:32)
[2020-07-10] MEDS: AMINO ACIDS/PROTEIN HYDROLYS 30 ML LIQUID.PKT PEG SCH (10:17)
[2020-07-10] MEDS: PHENobarbital 20 MG/5 ML UNIT-DOSE CUP GT SCH ×2 (10:17→22:00)
[2020-07-10] MEDS: ENOXAPARIN NA (PORCINE) 40 MG/0.4 ML DISP.SYRIN SQ SCH (10:17)
[2020-07-10] MEDS: lamoTRIgine 100 MG TABLET GT SCH ×2 (10:18→22:01)
[2020-07-10] MEDS: ACYCLOVIR 200 MG/5 ML LIQUID GT SCH ×2 (10:19→22:01)
[2020-07-10] MEDS: MULTIVIT-MINERALS ORAL LIQUID GT SCH (22:02)
[2020-07-11] MEDS: PIPERACILLIN/TAZOB 3.375 GM 3.375 GM in DEXTROSE 5%-WATER - 50 ML IVPB SCH ×2 (01:07→12:03)
[2020-07-11] MEDS: clonazePAM 0.5 MG TABLET GT SCH ×3 (05:17→23:02)
[2020-07-11] MEDS: BETHANECHOL CHLORIDE 25 MG TABLET GT SCH ×3 (05:18→23:00)
[2020-07-11] MEDS: cloBAZam 10 MG TABLET GT SCH ×2 (06:01→23:03)
[2020-07-11 07:08] LABS: BASO % 0.5 % (0-2.0); EOS % 5.1 % (0-4.5); HEMATOCRIT 41.4 % (35.4-49); HEMOGLOBIN 14.1 GM/dL (11.7-16.9); LYMPH % 21.7 % (8-40); MCH 33.3 pg (25.7-33.7); MEAN PLT VOLUME 11.2 fl (7.5-11.1); MONO % 8.4 % (3.8-10.2); NEUT % 64.3 % (42.8-82.8); PLATELET COUNT 158 K/MM3 (134-434); RBC 4.23 M/mm3 (4.00-5.60); RDW 13.7 % (11.9-15.9); WHITE BLOOD COUNT 6.9 K/mm3 (4.0-10.0)
[2020-07-11 07:45] LABS: CALCIUM 9.1 mg/dL (8.5-10.1)
[2020-07-11 07:46] LABS: ALBUMIN 3.6 g/dl (3.4-5.0); BLOOD UREA NITROGEN 9.9 mg/dL (7-18); MAGNESIUM 1.6 mg/dL (1.8-2.4)
[2020-07-11 07:49] LABS: CREATININE 0.6 mg/dL (0.55-1.3)
[2020-07-11 07:51] LABS: BILIRUBIN,TOTAL 0.4 mg/dL (0.2-1); TOT PROT 8.2 g/dl (6.4-8.2)
[2020-07-11 07:55] LABS: POTASSIUM 3.7 mmol/L (3.5-5.1)
[2020-07-11] MEDS ORDERED: MAGNESIUM OXIDE 400 MG TABLET (FP) NGT ONE (09:30)
[2020-07-11] MEDS ORDERED: PT OWN MED DRAWER 7, Y5N ONE ×3 (11:53→22:57)
[2020-07-11] MEDS: ENOXAPARIN NA (PORCINE) 40 MG/0.4 ML DISP.SYRIN SQ SCH (11:57)
[2020-07-11] MEDS: lamoTRIgine 100 MG TABLET GT SCH ×2 (11:57→23:02)
[2020-07-11] MEDS: PHENobarbital 20 MG/5 ML UNIT-DOSE CUP GT SCH ×2 (11:57→23:02)
[2020-07-11] MEDS: ACYCLOVIR 200 MG/5 ML LIQUID GT SCH ×2 (11:58→22:58)
[2020-07-11] MEDS: AMINO ACIDS/PROTEIN HYDROLYS 30 ML LIQUID.PKT PEG SCH (11:58)
[2020-07-11] MEDS ORDERED: AMOX TR/POT CLAV 875MG/125MG TABLETS (FP) PO SCH (17:30)
[2020-07-11] MEDS ORDERED: AMOX TR/POTASSIUM CLAVULANATE 600 MG/5 ML PO SCH (18:48)
[2020-07-11] MEDS ORDERED: AMOX TR/POTASSIUM CLAVULANATE 250 MG/5 ML BOTTLE PO SCH (20:49)
[2020-07-11] MEDS: MULTIVIT-MINERALS ORAL LIQUID GT SCH (22:59)
[2020-07-11] MEDS: AMOX TR/POTASSIUM CLAVULANATE 250 MG/5 ML BOTTLE PO SCH (23:01)
[2020-07-12] MEDS: clonazePAM 0.5 MG TABLET GT SCH ×2 (06:26→14:31)
[2020-07-12] MEDS: cloBAZam 10 MG TABLET GT SCH (06:26)
[2020-07-12] MEDS: BETHANECHOL CHLORIDE 25 MG TABLET GT SCH ×2 (06:26→14:32)
[2020-07-12 07:50] LABS: BASO % 0.4 % (0-2.0); EOS % 6.7 % (0-4.5); HEMATOCRIT 40.1 % (35.4-49); HEMOGLOBIN 13.6 GM/dL (11.7-16.9); LYMPH % 38.9 % (8-40); MCHC 33.9 g/dl (32.0-35.9); MEAN CELL VOLUME 97.3 fl (80-96); MEAN PLT VOLUME 10.8 fl (7.5-11.1); MONO % 9.4 % (3.8-10.2); NEUT % 44.6 % (42.8-82.8); PLATELET COUNT 169 K/MM3 (134-434); RBC 4.12 M/mm3 (4.00-5.60); RDW 13.3 % (11.9-15.9); WHITE BLOOD COUNT 5.1 K/mm3 (4.0-10.0)
[2020-07-12 08:26] LABS: ALBUMIN 3.6 g/dl (3.4-5.0); CALCIUM 9.4 mg/dL (8.5-10.1); MAGNESIUM 1.8 mg/dL (1.8-2.4)
[2020-07-12 08:27] LABS: BLOOD UREA NITROGEN 11.8 mg/dL (7-18)
[2020-07-12 08:29] LABS: CREATININE 0.5 mg/dL (0.55-1.3)
[2020-07-12 08:31] LABS: BILIRUBIN,TOTAL 0.2 mg/dL (0.2-1)
[2020-07-12] MEDS ORDERED: PT OWN MED DRAWER 7, Y5N ONE (11:30)
[2020-07-12] MEDS: lamoTRIgine 100 MG TABLET GT SCH (11:33)
[2020-07-12] MEDS: ENOXAPARIN NA (PORCINE) 40 MG/0.4 ML DISP.SYRIN SQ SCH (11:33)
[2020-07-12] MEDS: PHENobarbital 20 MG/5 ML UNIT-DOSE CUP GT SCH (11:33)
[2020-07-12] MEDS: ACYCLOVIR 200 MG/5 ML LIQUID GT SCH (11:34)
[2020-07-12] MEDS: AMOX TR/POTASSIUM CLAVULANATE 250 MG/5 ML BOTTLE PO SCH ×2 (11:34→14:34)
[2020-07-12] MEDS: AMINO ACIDS/PROTEIN HYDROLYS 30 ML LIQUID.PKT PEG SCH (11:34)
[2020-07-12 14:25] VITALS: BP 100/62; PULSE 101; TEMP 99
== END 2020-07-12 16:04 | DRG 137 ==
LOC: JER 14:24 → JERBED 17:16 → J7W 20:40
PROVIDERS: ADMIT Hospitalist; ATTEND Nurse Practitioner Family
PROC: 3E0H76Z Introduction of Nutritional Substance into Lower GI, Via Natural or Artificial Opening (ICD-10-PCS; principal; 2020-07-06)
DX: J69.0 Pneumonitis due to inhalation of food and vomit (principal); G80.9 Cerebral palsy, unspecified; F73 Profound intellectual disabilities; R53.2 Functional quadriplegia; J96.01 Acute respiratory failure with hypoxia; B00.4 Herpesviral encephalitis; E87.6 Hypokalemia; E83.42 Hypomagnesemia; K21.9 Gastro-esophageal reflux disease without esophagitis; K59.09 Other constipation; G40.909 Epilepsy, unspecified, not intractable, without status epilepticus; R13.10 Dysphagia, unspecified; K56.7 Ileus, unspecified; R62.50 Unspecified lack of expected normal physiological development in childhood; Z93.1 Gastrostomy status
CPT/HCPCS: 36415; 71045-TC-FY; 71250-TC; 74018-TC-FY; 74176-TC; 80048; 80053; 82550; 82553; 83605; 83735; 84100; 84484; 85025; 85610; 87040; 87070; 87186; 87205; 87804; 93005; 93010; 94761; 99285-25; C9803; U0003